=== PATIENT | male | born 1965 | race Hispanic/Latino ===

== ENCOUNTER 2016-09-18 11:06 | Emergency (ER) | payer MEDICAID ==
[2016-09-18 11:06] VITALS: BMI 22.3
[2016-09-18 11:10] VITALS: BP 144/85; PULSE 125; RESP 20; TEMP 99.3; O2SAT 97
--- NOTE | 2016-09-18 13:21 | ED PDOC ---
HPI: Abdomen Time Seen by Provider: 09/18/16 11:55 Chief Complaint (Nursing): GI Problem Chief Complaint (Provider): vomiting blood History Per: Patient Additional Complaint(s): 51-year-old male with history of alcohol abuse presents to emergency department with intermittent hematemesis 1 week. Patient also has abdominal distention and swelling in both legs. He denies chest pain, shortness of breath or dyspnea on exertion, denies fever or chills. Patient states he used to abuse alcohol but has not had a drink in several months. He denies abdominal pain but does feel uncomfortable secondary to distention. Past Medical History Reviewed: Historical Data, Nursing Documentation, Vital Signs Vital Signs: Last Vital Signs Temp 99.3 F 09/18/16 11:08 Pulse 125 H 09/18/16 11:08 Resp 20 09/18/16 11:08 BP 144/85 09/18/16 11:08 Pulse Ox 97 09/18/16 11:08 - Medical History PMH: Back Problems (herniated disc), Fractures (left hand 5th digit, left shoulder), Gastritis, HTN, Pancreatitis, Seizures - Surgical History Surgical History: Endoscopy - Family History Family History: States: No Known Family Hx - Living Arrangements Living Arrangements: Alone - Social History Current smoker - smoking cessation education provided: Yes Alcohol: Other (states he has not had a drink in several months but has history of abuse) Drugs: Denies - Home Medications Home Medications: Ambulatory Orders Medication Instructions Recorded Ferrous Sulfate [Feosol] 325 mg PO BID #60 tab 05/20/16 levETIRAcetam [Keppra] 500 mg PO BID #0 tab 05/20/16 Lactulose [Generlac] 10 gm PO TID #240 ml 06/26/16 Omeprazole 40 mg PO DAILY #30 capsule. 06/26/16 Pantoprazole Sodium [Protonix] 40 mg PO DAILY #30 tablet. 07/07/16 - Allergies Allergies/Adverse Reactions: Allergies Allergy/AdvReac Type Severity Reaction Status Date / Time aspirin Allergy NAUSEA Verified 09/18/16 11:09 Review of Systems ROS Statement: Except As Marked, All Systems Reviewed And Found Negative Constitutional: Negative for: Fever, Chills Cardiovascular: Negative for: Chest Pain, Palpitations Respiratory: Negative for: Cough Gastrointestinal: Positive for: Vomiting (blood), Abdominal Pain (distention) Musculoskeletal: Positive for: Other (edema in legs) Neurological: Negative for: Seizures, Headache, Dizziness Physical Exam - Reviewed Nursing Documentation Reviewed: Yes Vital Signs Reviewed: Yes - Physical Exam Appears: Positive for: Well, Non-toxic, No Acute Distress (etoh on breath) Skin: Negative for: Rash Eye Exam: Positive for: Normal appearance, EOMI, PERRL ENT: Positive for: Normal ENT Inspection Cardiovascular/Chest: Positive for: Regular Rate, Rhythm Respiratory: Positive for: Normal Breath Sounds Gastrointestinal/Abdominal: Positive for: Soft, Other (Mild diffuse abdominal tenderness with distention, no rebound or guarding) Back: Negative for: L CVA Tenderness, R CVA Tenderness Extremity: Positive for: Pedal Edema (Nonpitting edema noted to lower extremities bilaterally, no calf tenderness bilaterally, no cellulitis bilaterally) Neurologic/Psych: Positive for: Alert, Oriented, Gait (steady) - ECG O2 Sat by Pulse Oximetry: 97 Pulse Ox Interpretation: Normal Medical Decision Making Medical Decision Makin51 year old with history of alcohol abuse and hematemesis Plan: Labs IVF CT abd and pelvis CXR EKG IV protonix Treatment plan was discussed with the patient however he states he has to leave because he has an appointment with social security office. Patient is refusing all testing at this time. Patient prefers to return later on when he has more time. Patient was informed that he would need to sign out AGAINST MEDICAL ADVICE given presenting symptoms. Risks and dangers of signing out AGAINST MEDICAL ADVICE which include but are not limited to worsening of current condition and possible were discussed in detail with the patient. All questions were answered. Patient is competent and capable of making this decision at this time. AMA paperwork was reviewed in detail with patient and patient signed. He was instructed to return to ED as soon as possible or follow- up with primary doctor. Disposition - Clinical Impression Clinical Impression: Hematemesis, Left against medical advice - Patient ED Disposition Is Patient to be Admitted: No - Disposition Disposition: Against Medical Advice (patient signed AMA form but left ED before signing d/c paperwork, verbal instructions were given.) Disposition Time: 13:24 Condition: UNKNOWN Additional Instructions: You have declined tests in ED and are signing out against medical advice. Please return as soon as possible or follow up with primary care doctor. Instructions: Acute Nausea and Vomiting (ED), Against Medical Advice (ED)
== END 2016-09-18 12:30 | disposition left against medical advice (07) ==
LOC: H.ER 11:06
DX: K92.0 Hematemesis (principal)

== ENCOUNTER 2016-11-05 02:10 | Inpatient (IN) | payer MEDICAID ==
[2016-11-06 00:03] VITALS: BMI 23.0
[2016-11-06 00:43] LABS: BASO % 0.3 % (0.0-2.0); EOS # 0.2 K/uL (0.0-0.7); HEMATOCRIT 20.8 % (35.0-51.0); LYMPH % 25.4 % (20.0-40.0); MEAN CELL VOLUME 91.1 fl (80.0-94.0); MEAN CORPUSCULAR HEMOGLOBIN 30.9 pg (27.0-31.0); MEAN CORPUSCULAR HGB CONC 33.9 g/dL (33.0-37.0); MEAN PLATELET VOLUME 8.8 fl (7.2-11.7); MONO # 0.5 K/uL (0.0-0.8); MONO % 11.9 % (0.0-10.0); NEUT # 2.3 K/uL (1.8-7.0); NEUT % 57.4 % (50.0-75.0); NRBC % 0.1 % (0.0-0.0); RED CELL DISTRIBUTION WIDTH 19.9 % (11.5-14.5); WHITE BLOOD COUNT 4.1 K/uL (4.8-10.8)
[2016-11-06] MEDS: Sodium Chloride 0.9% 1,000 ML IV SCH ×3 (01:00→21:00)
[2016-11-06 07:33] LABS: MEAN CELL VOLUME 91.6 fl (80.0-94.0); MEAN CORPUSCULAR HEMOGLOBIN 31.5 pg (27.0-31.0); MEAN CORPUSCULAR HGB CONC 34.4 g/dL (33.0-37.0); RED CELL DISTRIBUTION WIDTH 19.8 % (11.5-14.5); WHITE BLOOD COUNT 3.6 K/uL (4.8-10.8)
--- NOTE | 2016-11-06 07:37 | CP.PCM.PN ---
<Zachery Munguia - Last Filed: 11/06/16 10:03> Subjective - Date & Time of Evaluation Date of Evaluation: 11/06/16 Time of Evaluation: 07:27 - Subjective Subjective: General Surgery Progress Notes for Dr. Dyer This 51M was seen and examined this AM at bedside. He reports no acute events overnight. He denies any increased pain, fevers, chills, chest pain, nausea, Objective - Vital Signs/Intake and Output Vital Signs (last 24 hours): Temp Pulse Resp BP Pulse Ox 98.6 F 84 19 101/64 94 L 11/06/16 00:00 11/06/16 00:00 11/06/16 00:00 11/06/16 00:00 11/06/16 00:00 - Medications Medications: Current Medications Acetaminophen (Tylenol 325mg Tab) 650 mg PO Q6 PRN PRN Reason: Fever >100.4 F Ferrous Sulfate (Feosol) 325 mg PO DAILY JANNIE Sodium Chloride (Sodium Chloride 0.9%) 1,000 mls @ 100 mls/hr IV .Q10H JANNIE Stop: 11/07/16 00:35 Last Admin: 11/06/16 01:00 Dose: 100 mls/hr Levetiracetam (Keppra) 500 mg PO BID JANNIE Lidocaine (Lidoderm) 1 ea TD DAILY JANNIE Morphine Sulfate (Morphine) 2 mg IVP Q4 PRN PRN Reason: Pain, moderate (4-7) Pantoprazole Sodium (Protonix Ec Tab) 40 mg PO DAILY JANNIE - Labs Labs: 11/06/16 00:42 - Constitutional Appears: Non-toxic, No Acute Distress - Head Exam Head Exam: ATRAUMATIC, NORMOCEPHALIC - Eye Exam Eye Exam: EOMI - ENT Exam ENT Exam: Mucous Membranes Moist - Respiratory Exam Respiratory Exam: NORMAL BREATHING PATTERN - Cardiovascular Exam Cardiovascular Exam: REGULAR RHYTHM - GI/Abdominal Exam GI & Abdominal Exam: Soft. absent: Firm, Guarding, Rigid, Tenderness - Extremities Exam Additional comments: Large left leg echymosis, no noticable interval change from yesterday Assessment and Plan - Assessment and Plan (Free Text) Assessment: This is a 51 year old male is is day 3 s/p mechanical fall. No surgical intervention at this time. It is unlikely that the hemoglobin is due to bleeding into the lower extremity. I recommend further workup for other sources of bleeding. D/W Dr. Manisha Munguia PGY-1 <Jones Dyer - Last Filed: 11/08/16 22:48> Objective - Vital Signs/Intake and Output Vital Signs (last 24 hours): Temp Pulse Resp BP Pulse Ox 99.1 F 92 H 20 121/67 98 11/07/16 08:34 11/07/16 08:34 11/07/16 08:34 11/07/16 08:34 11/07/16 08:34 - Labs Labs: 11/07/16 05:30 11/07/16 05:30 PT 22.0 SECONDS (9.6-11.2) H 11/06/16 06:40 INR 2.12 (0.92-1.08) H 11/06/16 06:40 APTT 41.2 SECONDS (23.3-32.5) H 11/05/16 08:39 Attending/Attestation - Attestation I have personally seen and examined this patient.: Yes I have fully participated in the care of the patient.: Yes I have reviewed all pertinent clinical information, including history, physical exam and plan: Yes Notes (Text): 11/08/16 22:47 Pt was seen and examined at bedside on 11/06/16 Agree with above note and assessment Pt with fall and Left gluteal and Groin hematoma No signs of active bleeding Plan d.w pt in detail No surgical intervention required at present f.U PRN
[2016-11-06 07:46] LABS: BLOOD UREA NITROGEN 15 mg/dl (9-20); CALCIUM 7.1 mg/dL (8.4-10.2); CARBON DIOXIDE 22 mmol/L (22-30); CHLORIDE 103 mmol/L (98-107); GFR AFRICAN-AMERICAN > 60; GLUCOSE,RANDOM 96 mg/dL (75-110); POTASSIUM 3.4 MMOL/L (3.6-5.0); SODIUM 134 mmol/l (132-148)
[2016-11-06 07:56] LABS: HEMATOCRIT 20.1 % (35.0-51.0)
--- NOTE | 2016-11-06 09:01 | RAD ---
Three-views, left shoulder Indication: Pain, fall Comparison: None available Findings: Calcific tendinitis. Osseous demineralization limits evaluation for acute fracture lines. Degenerative changes. Acromioclavicular arthropathy. No acute displaced fracture or dislocation evident. Glenohumeral joint and acromioclavicular joint appear unremarkable. The distal clavicle and underlying ribs appear intact. No evidence of radiopaque foreign body. Soft appear unremarkable. Impression: No acute displaced fracture or dislocation evident. If symptoms persist or if there is continued clinical concern, x-ray follow-up in 7-10 days should be considered. Calcific tendinitis.
[2016-11-06 09:19] LABS: BASO % 0.7 % (0.0-2.0); EOS # 0.2 K/uL (0.0-0.7); EOS % 3.9 % (0.0-4.0); HEMATOCRIT 22.2 % (35.0-51.0); LYMPH # 0.9 K/uL (1.0-4.3); LYMPH % 21.2 % (20.0-40.0); MEAN CELL VOLUME 91.4 fl (80.0-94.0); MEAN CORPUSCULAR HEMOGLOBIN 31.2 pg (27.0-31.0); MEAN CORPUSCULAR HGB CONC 34.1 g/dL (33.0-37.0); MEAN PLATELET VOLUME 11.3 fl (7.2-11.7); MONO # 0.6 K/uL (0.0-0.8); MONO % 12.3 % (0.0-10.0); NEUT # 2.8 K/uL (1.8-7.0); NEUT % 61.9 % (50.0-75.0); NRBC % 0.3 % (0.0-0.0); RED CELL DISTRIBUTION WIDTH 20.8 % (11.5-14.5); WHITE BLOOD COUNT 4.5 K/uL (4.8-10.8)
[2016-11-06] MEDS: Lidocaine 5% Patch TD SCH (09:27)
[2016-11-06] MEDS: Pantoprazole 40 mg EC Tab PO SCH (09:27)
[2016-11-06 09:40] LABS: PARTIAL THROMBOPLASTIN TIME 41.2 SECONDS (23.3-32.5)
--- NOTE | 2016-11-06 10:37 | CT ---
PROCEDURE: CT pelvis, left hip and femur. HISTORY: Status post fall with extensive ecchymosis. COMPARISON: Not available TECHNIQUE: 2.5 mm contiguous axial sections were acquired through the pelvis and left hip. A 2nd series is 2.5 mm axial sections were acquired through the left femur. Sagittal and coronal images of both series were created. FINDINGS: There is no fracture identified. The left hip is unremarkable. There is no lytic or blastic osseous lesion. There is small hematoma seen posterolateral to the left iliac crest, measuring approximately 3.3 x 2.6 by 2.8 cm. This is continuous with a small amount of hemorrhage extending distally in the left lateral gluteal subcutaneous soft tissues. There is extensive subcutaneous edema/ ecchymosis extending to the level just beneath the hip. Subcutaneous edema is seen more distally in the lateral subcutaneous soft tissues of the proximal femur. Examination of the pelvic contents demonstrates no abnormal bowel loops. The urinary bladder is unremarkable. The prostate is normal in appearance. There is no ascites. IMPRESSION: No fracture of pelvis/left hip/ left femur. Extensive subcutaneous ecchymosis. Padilla small hematoma in subcutaneous fat at the level of these left iliac crest.
[2016-11-06 11:14] LABS: BLOOD UREA NITROGEN 21 mg/dl (9-20); CALCIUM 7.5 mg/dL (8.4-10.2); CARBON DIOXIDE 20 mmol/L (22-30); CHLORIDE 103 mmol/L (98-107); GFR AFRICAN-AMERICAN > 60; GLUCOSE,RANDOM 93 mg/dL (75-110); POTASSIUM 3.7 MMOL/L (3.6-5.0); SODIUM 134 mmol/l (132-148)
--- NOTE | 2016-11-06 15:19 | CP.PCM.PN ---
<Kian Elliott - Last Filed: 11/06/16 16:02> Subjective - Date & Time of Evaluation Date of Evaluation: 11/06/16 Time of Evaluation: 09:45 - Subjective Subjective: Patient seen and evaluated during rounds today. He is stable, tolerating PO diet , denies CP, palpitations, SOB, headache or dizziness. Patient still c/o L/ shoulder and L/thigh pain over the ecchymotic lesions. VS reviewed adn stable. Patient's Hgb today, reviewed and 1 unit of PRBC was ordered to correct Hgb/Hct levels. Objective - Vital Signs/Intake and Output Vital Signs (last 24 hours): Temp Pulse Resp BP Pulse Ox 99.3 F 90 20 104/58 L 98 11/06/16 15:00 11/06/16 15:00 11/06/16 15:00 11/06/16 15:00 11/06/16 15:00 - Medications Medications: Current Medications Acetaminophen (Tylenol 325mg Tab) 650 mg PO Q6 PRN PRN Reason: Fever >100.4 F Ferrous Sulfate (Feosol) 325 mg PO DAILY [facility]END[facility] S[facility] TO [facility] Last Admin: 11/06/16 09:26 Dose: 325 mg Sodium Chloride (Sodium Chloride 0.9%) 1,000 mls @ 100 mls/hr IV .Q10H [facility]END[facility] TO [facility] Stop: 11/07/16 00:35 Last Admin: 11/06/16 12:48 Dose: 100 mls/hr Levetiracetam (Keppra) 500 mg PO BID [facility] Last Admin: 11/06/16 09:27 Dose: 500 mg Lidocaine (Lidoderm) 1 ea TD DAILY [facility] Last Admin: 11/06/16 09:27 Dose: 1 ea Morphine Sulfate (Morphine) 2 mg IVP Q4 PRN PRN Reason: Pain, moderate (4-7) Pantoprazole Sodium (Protonix Ec Tab) 40 mg PO DAILY [facility] Last Admin: 11/06/16 09:27 Dose: 40 mg - Labs Labs: 11/06/16 06:40 11/06/16 06:40 PT 22.0 SECONDS (9.6-11.2) H 11/06/16 06:40 INR 2.12 (0.92-1.08) H 11/06/16 06:40 APTT 41.2 SECONDS (23.3-32.5) H 11/05/16 08:39 - Constitutional Appears: Non-toxic, No Acute Distress - Eye Exam Eye Exam: PERRL - ENT Exam ENT Exam: Mucous Membranes Moist - Respiratory Exam Respiratory Exam: Clear to Ausculation Bilateral, NORMAL BREATHING PATTERN. absent: Rales, Wheezes - Cardiovascular Exam Cardiovascular Exam: REGULAR RHYTHM, +S1, +S2. absent: Gallop - GI/Abdominal Exam GI & Abdominal Exam: Soft, Normal Bowel Sounds. absent: Tenderness - Extremities Exam Extremities Exam: Normal Capillary Refill, Tenderness (L/upper thigh. Ecchymosis ) - Neurological Exam Neurological Exam: Alert, Awake, Oriented x3 - Psychiatric Exam Psychiatric exam: Normal Affect, Normal Mood - Skin Skin Exam: Warm Assessment and Plan - Assessment and Plan (Free Text) Assessment: 51 y/o M with Hx of liver cirrhosis admitted s/p fall 2 weeks ago and anemia 1-Acute on chronic anemia Last Hgb 6.9 Am today S/P 1 unit PRBC F/U CBC for tomorrow AM VS stable Will monitor F/U FOBT 2-Liver cirrhosis Non-complaint with f/u elevated INR/PT Amonia 77 F/U CMP tomorrow am 3-S/P fall w/multiple ecchymotic lesions Evaluated by Sx: No interventions at this time CT LE: Small hematoma L/iliac crest area, No Fx: please see full report L/shoulder Xray: No Fx: please see full report On Tylenol, Morphine for pain control 4-Hx of Seizure disorder Cont Keppra current dose <Jennifer Ray - Last Filed: 11/07/16 08:49> Objective - Vital Signs/Intake and Output Vital Signs (last 24 hours): Temp Pulse Resp BP Pulse Ox 99.1 F 92 H 20 121/67 98 11/07/16 08:34 11/07/16 08:34 11/07/16 08:34 11/07/16 08:34 11/07/16 08:34 - Medications Medications: Current Medications Acetaminophen (Tylenol 325mg Tab) 650 mg PO Q6 PRN PRN Reason: Pain, moderate (4-7) Last Admin: 11/06/16 15:59 Dose: 650 mg Ferrous Sulfate (Feosol) 325 mg PO DAILY JANNIE Last Admin: 11/06/16 09:26 Dose: 325 mg Levetiracetam (Keppra) 500 mg PO BID PENDING SALE TO [facility] Last Admin: 11/06/16 16:02 Dose: 500 mg Lidocaine (Lidoderm) 1 ea TD DAILY PENDING SALE TO [facility] Last Admin: 11/06/16 09:27 Dose: 1 ea Morphine Sulfate (Morphine) 2 mg IVP Q4 PRN PRN Reason: Pain, severe (8-10) Pantoprazole Sodium (Protonix Ec Tab) 40 mg PO DAILY PEND[facility] Last Admin: 11/06/16 09:27 Dose: 40 mg - Labs Labs: 11/07/16 05:30 11/07/16 05:30 PT 22.0 SECONDS (9.6-11.2) H 11/06/16 06:40 INR 2.12 (0.92-1.08) H 11/06/16 06:40 APTT 41.2 SECONDS (23.3-32.5) H 11/05/16 08:39 Assessment and Plan - Assessment and Plan (Free Text) Assessment: ATTENDING STATEMENT/ ATTESTATION Patient seen and examined. Case discussed with resident. Agree with plan to transfuse one unit or PRBC's today. Repeat CBC in AM 11/07/16 and discharge if stable.
[2016-11-06] MEDS ORDERED: Potassium Chloride 20 mEq ER Tab PO ONE (16:16)
[2016-11-07 01:09] VITALS: RESP 20
[2016-11-07 08:12] LABS: HEMATOCRIT 24.3 % (35.0-51.0); MEAN CELL VOLUME 92.7 fl (80.0-94.0); MEAN CORPUSCULAR HEMOGLOBIN 32.1 pg (27.0-31.0); MEAN CORPUSCULAR HGB CONC 34.6 g/dL (33.0-37.0); RED CELL DISTRIBUTION WIDTH 19.1 % (11.5-14.5); WHITE BLOOD COUNT 4.5 K/uL (4.8-10.8)
[2016-11-07 08:34] VITALS: BP 121/67; PULSE 92; TEMP 99.1; O2SAT 98
[2016-11-07 08:41] LABS: ALB/GLOB RATIO 0.6 (1.0-2.1); ALKALINE PHOSPHATASE 98 U/L (38-126); ALT/SGPT 41 U/L (21-72); AST/SGOT 92 U/L (17-59); BILIRUBIN,TOTAL 7.3 mg/dl (0.2-1.3); BLOOD UREA NITROGEN 8 mg/dl (9-20); CALCIUM 7.3 mg/dL (8.4-10.2); CARBON DIOXIDE 21 mmol/L (22-30); CHLORIDE 106 mmol/L (98-107); GFR AFRICAN-AMERICAN > 60; GLUCOSE,RANDOM 118 mg/dL (75-110); POTASSIUM 3.7 MMOL/L (3.6-5.0); SODIUM 134 mmol/l (132-148); TOTAL PROTEIN 6.9 G/DL (6.3-8.2)
[2016-11-07] MEDS: Pantoprazole 40 mg EC Tab PO SCH (09:57)
[2016-11-07] MEDS: Lidocaine 5% Patch TD SCH (09:57)
--- NOTE | 2016-11-07 13:10 | CP.PCM.DIS ---
Provider - Provider Date of Admission: 11/05/16 14:05 Attending physician: Chanelle Rowe MD Primary care physician: Cesar Guaman MD Time Spent in preparation of Discharge (in minutes): 25 Diagnosis - Discharge Diagnosis (1) Anemia Status: Acute Comment: s/p 1 units of PRBC. hgb: 8.4. c/w iron at home. F/U w/ PMD. ER precautions. (2) Hematoma of left hip Status: Acute Comment: 2/2 fall at home. stable. no surgical intervention at this time. (3) Liver cirrhosis, alcoholic Status: Chronic Priority: High Comment: encouraged pt to F/U with GI. encouraged pt to F/U at [facility] for possible LIver transplant. referral was given to pt in prior admission Hospital Course - Lab Results Lab Results: Most Recent Lab Values WBC 4.5 K/uL (4.8-10.8) L 11/07/16 05:30 RBC 2.62 Mil/uL (4.40-5.90) L 11/07/16 05:30 Hgb 8.4 g/dL (12.0-18.0) L 11/07/16 05:30 Hct 24.3 % (35.0-51.0) L 11/07/16 05:30 MCV 92.7 fl (80.0-94.0) 11/07/16 05:30 MCH 32.1 pg (27.0-31.0) H 11/07/16 05:30 MCHC 34.6 g/dL (33.0-37.0) 11/07/16 05:30 RDW 19.1 % (11.5-14.5) H 11/07/16 05:30 Plt Count 51 K/uL (130-400) L 11/07/16 05:30 MPV 8.8 fl (7.2-11.7) 11/06/16 00:42 Neut % (Auto) 57.4 % (50.0-75.0) 11/06/16 00:42 Lymph % (Auto) 25.4 % (20.0-40.0) 11/06/16 00:42 Hayes % (Auto) 11.9 % (0.0-10.0) H 11/06/16 00:42 Eos % (Auto) 5.0 % (0.0-4.0) H 11/06/16 00:42 Baso % (Auto) 0.3 % (0.0-2.0) 11/06/16 00:42 Neut # 2.3 K/uL (1.8-7.0) 11/06/16 00:42 Lymph # 1.0 K/uL (1.0-4.3) 11/06/16 00:42 Hayes # 0.5 K/uL (0.0-0.8) 11/06/16 00:42 Eos # 0.2 K/uL (0.0-0.7) 11/06/16 00:42 Baso # 0.0 K/uL (0.0-0.2) 11/06/16 00:42 PT 22.0 SECONDS (9.6-11.2) H 11/06/16 06:40 INR 2.12 (0.92-1.08) H 11/06/16 06:40 APTT 41.2 SECONDS (23.3-32.5) H 11/05/16 08:39 Sodium 134 mmol/l (132-148) 11/07/16 05:30 Potassium 3.7 MMOL/L (3.6-5.0) 11/07/16 05:30 Chloride 106 mmol/L (98-107) 11/07/16 05:30 Carbon Dioxide 21 mmol/L (22-30) L 11/07/16 05:30 Anion Gap 11 (10-20) 11/07/16 05:30 BUN 8 mg/dl (9-20) L 11/07/16 05:30 Creatinine 0.6 mg/dL (0.8-1.5) L 11/07/16 05:30 Est GFR ( Amer) > 60 11/07/16 05:30 Est GFR (Non-Af Amer) > 60 11/07/16 05:30 Random Glucose 118 mg/dL (75-110) H 11/07/16 05:30 Calcium 7.3 mg/dL (8.4-10.2) L 11/07/16 05:30 Total Bilirubin 7.3 mg/dl (0.2-1.3) H 11/07/16 05:30 AST 92 U/L (17-59) H 11/07/16 05:30 ALT 41 U/L (21-72) 11/07/16 05:30 Alkaline Phosphatase 98 U/L (38-126) 11/07/16 05:30 Ammonia 77 umo/L (16-60) H 11/06/16 06:40 Total Protein 6.9 G/DL (6.3-8.2) 11/07/16 05:30 Albumin 2.5 g/dL (3.5-5.0) L 11/07/16 05:30 Globulin 4.4 gm/dL (2.2-3.9) H 11/07/16 05:30 Albumin/Globulin Ratio 0.6 (1.0-2.1) L 11/07/16 05:30 Blood Type O POSITIVE 11/06/16 00:12 Antibody Screen Negative 11/06/16 00:12 Crossmatch See Detail 11/06/16 00:12 BBK History Checked Patient has bt 11/06/16 00:12 - Hospital Course Hospital Course: 51 y/o M with Hx of liver cirrhosis admitted s/p fall 2 weeks ago admitted w/ left hip hematoma and anemia. Pt received 1 unit of PRBC, hb.4 after transfusion. feeling better, evaluated by surgery for the hematoma, no surgical intervention needed. will d/c pt home w/ F/U by PMD within 1 week. Discharge Exam - Additional Findings Additional findings: - Constitutional Appears: Non-toxic, No Acute Distress - Eye Exam Eye Exam: PERRL - ENT Exam ENT Exam: Mucous Membranes Moist - Respiratory Exam Respiratory Exam: Clear to Ausculation Bilateral, NORMAL BREATHING PATTERN. absent: Rales, Wheezes - Cardiovascular Exam Cardiovascular Exam: REGULAR RHYTHM, +S1, +S2. absent: Gallop - GI/Abdominal Exam GI & Abdominal Exam: Soft, Normal Bowel Sounds. absent: Tenderness - Extremities Exam Extremities Exam: Normal Capillary Refill, Tenderness (L/upper thigh. hematoma, soft, stable in size from admission.) - Neurological Exam Neurological Exam: Alert, Awake, Oriented x3 - Psychiatric Exam Psychiatric exam: Normal Affect, Normal Mood - Skin Skin Exam: Warm Discharge Plan - Follow Up Plan Condition: GOOD Disposition: HOME/ ROUTINE Instructions: Anemia (DC) Additional Instructions: F/U with PMD at [facility] (dr. Moreno) within 1 week. CBC order for Wednesday11/11/16 given to pt. ER precautions given to pt who verbalized understanding. Referrals: Cesar Guaman MD [Primary Care Provider] -
--- NOTE | 2016-11-09 16:41 | CP.PCM.PCO ---
Assessment/Plan - Assessment and Plan (Free Text) Assessment: Permission given for me to speak to his sister. Pt would like his sister to be his primary decision maker. Spoke with Missy Worthington [phone] - P t gave me the number She is aware of pt's liver disease When I told Merly that pt had told me he is no longer drinking, she replied " I wouldn't make any bets" I saw and evaluated the patient. I discussed the case with the resident and agree with the findings and plan as documented in the resident's note. Please refer to discharge summary
== END 2016-11-07 14:13 | disposition home or self-care (01) | DRG 812 ==
LOC: H.EDERROR 02:10 → H.MEDSURG1 14:05 → UNDOADMIN 16:08 → H.MEDSURG1 11-06 00:54
PROVIDERS: ADMIT Family Medicine Geriatric Medicine; ATTEND Family Medicine Geriatric Medicine
PROC: 30233N1 Transfusion of Nonautologous Red Blood Cells into Peripheral Vein, Percutaneous Approach (ICD-10-PCS; principal; 2016-11-05)
DX: D64.89 Other specified anemias (principal); K74.60 Unspecified cirrhosis of liver; S30.1XXA Contusion of abdominal wall, initial encounter; G40.909 Epilepsy, unspecified, not intractable, without status epilepticus; W18.30XA Fall on same level, unspecified, initial encounter; Z91.19 Patient's noncompliance with other medical treatment and regimen; Z91.81 History of falling; Y92.9 Unspecified place or not applicable

== ENCOUNTER 2016-11-07 15:03 | Inpatient (IN) | payer MEDICAID ==
[2016-11-07 15:04] VITALS: BMI 23.0
--- NOTE | 2016-11-07 17:19 | RAD ---
HISTORY: SOB COMPARISON: Chest x-ray performed 10/16/16 TECHNIQUE: Chest, one view. FINDINGS: LUNGS: Mild left basilar atelectasis. Please note that chest x-ray has limited sensitivity for the detection of pulmonary masses. PLEURA: Question small pleural effusion at the right costophrenic angle. Suspect artifactual lucency at the right lung base rather than tiny pneumothorax. CARDIOVASCULAR: Heart size appears top normal. OSSEOUS STRUCTURES: No acute osseous abnormality identified. VISUALIZED UPPER ABDOMEN: Unremarkable. OTHER FINDINGS: None. IMPRESSION: Question small pleural effusion at the right costophrenic angle. Suspect artifactual lucency at the right lung base rather than tiny pneumothorax. Repeat chest PA and lateral x-ray for further evaluation. Mild left basilar atelectasis. Findings discussed with STEPHAN Engel on 11/07/16 at 5:14 p.m.
[2016-11-07 17:21] LABS: BASO % 0.3 % (0.0-2.0); EOS # 0.2 K/uL (0.0-0.7); EOS % 3.6 % (0.0-4.0); HEMATOCRIT 24.2 % (35.0-51.0); LYMPH # 0.8 K/uL (1.0-4.3); MEAN CELL VOLUME 94.6 fl (80.0-94.0); MEAN CORPUSCULAR HEMOGLOBIN 32.7 pg (27.0-31.0); MEAN CORPUSCULAR HGB CONC 34.5 g/dL (33.0-37.0); MEAN PLATELET VOLUME 8.9 fl (7.2-11.7); MONO # 0.9 K/uL (0.0-0.8); MONO % 17.3 % (0.0-10.0); NEUT # 3.1 K/uL (1.8-7.0); NEUT % 62.8 % (50.0-75.0); RED CELL DISTRIBUTION WIDTH 19.5 % (11.5-14.5); WHITE BLOOD COUNT 4.9 K/uL (4.8-10.8)
[2016-11-07 17:35] LABS: ALB/GLOB RATIO 0.6 (1.0-2.1); ALKALINE PHOSPHATASE 137 U/L (38-126); ALT/SGPT 47 U/L (21-72); AST/SGOT 101 U/L (17-59); BILIRUBIN,TOTAL 7.2 mg/dl (0.2-1.3); BLOOD UREA NITROGEN 7 mg/dl (9-20); CALCIUM 7.8 mg/dL (8.4-10.2); CARBON DIOXIDE 19 mmol/L (22-30); CHLORIDE 106 mmol/L (98-107); GFR AFRICAN-AMERICAN > 60; GLUCOSE,RANDOM 101 mg/dL (75-110); POTASSIUM 4.5 MMOL/L (3.6-5.0); SODIUM 133 mmol/l (132-148); TOTAL PROTEIN 7.7 G/DL (6.3-8.2)
[2016-11-07 17:49] LABS: PARTIAL THROMBOPLASTIN TIME 37.1 SECONDS (23.3-32.5)
--- NOTE | 2016-11-07 17:54 | RAD ---
HISTORY: SOB, r/o pneumothorax COMPARISON: Chest x-ray performed 11/07/16 TECHNIQUE: Chest PA and lateral FINDINGS: LUNGS: Small right pleural effusion and or atelectasis/infiltrate. No definite pneumothorax. Please note that chest x-ray has limited sensitivity for the detection of pulmonary masses. CARDIOVASCULAR: The cardiomediastinal silhouette appears within normal limits of size. OSSEOUS STRUCTURES: No acute osseous abnormality identified. VISUALIZED UPPER ABDOMEN: Unremarkable. OTHER FINDINGS: None. IMPRESSION: Small right pleural effusion and/or atelectasis/infiltrate.
--- NOTE | 2016-11-07 17:54 | ED PDOC ---
Lower Extremity Pain/Injury Time Seen by Provider: 11/07/16 15:30 Chief Complaint (Nursing): Lower Extremity Problem/Injury Chief Complaint (Provider): Lower extrmity Problem/Injury History Per: Patient History/Exam Limitations: no limitations Onset/Duration Of Symptoms: Days Current Symptoms Are (Timing): Still Present Additional Complaint(s): Shreyas Sepulveda is a 51 year old male with no past medical history, is a smoker, who presents to the ED for evaluation for L hip pain, states that he had a recent admission 3 days ago for and was d/c 2 hours prior to my evaluation. He adds that he sustained L hip injury due to falling at home 5 days ago. Patient admits to falling on the left hip and coming to the ER for evaluation and was admitted. He states that the L hip pain has been unchanged and is steady since the injury. States today after he was d/c he was walking home and noticed that walking makes the L hip pain worse. He also reports feeling SOB when we was walking today, he states that he walked a total of 6 blocks and that the SOB is new, he never experienced in before when he walks a long distance. Denies any associated symptoms of chest pain, diaphoresis , calf pain, and swelling. Patient states during his recent admission to [facility], he received CT of hip which showed no fx, XR L shoulder showed no fx. PCP is Dr. Rodriguez - Hip Description Of Injury: Fell (at home) - Risk Factors DVT Risk Factors: Pos: Decreased Mobility, Decreased Activity, Hospitalization Past Medical History Reviewed: Historical Data, Nursing Documentation, Vital Signs Vital Signs: Last Vital Signs Temp 98.3 F 11/07/16 15:22 Pulse 104 H 11/07/16 15:22 Resp 20 11/07/16 15:22 BP 112/57 L 11/07/16 15:22 Pulse Ox 97 11/07/16 15:22 - Medical History PMH: Anemia, Back Problems (herniated disc), Fractures (L hand 5th digit, L shoulder), Gastritis, HTN (patient denies), Pancreatitis (patient denies), Seizures Denies: Parkinson's Disease, Chronic Kidney Disease - Surgical History Surgical History: Endoscopy - Family History Family History: States: No Known Family Hx - Home Medications Home Medications: Ambulatory Orders Medication Instructions Recorded Ferrous Sulfate [Feosol] 325 mg PO BID 10/16/16 Omeprazole Magnesium [Prilosec Otc] 20 mg PO BID 10/16/16 levETIRAcetam [Keppra] 500 mg PO BID 10/16/16 Folic Acid/Mv,Iron,Min [One Daily 1 each PO DAILY #30 tablet 10/22/16 Complete Tablet] Thiamine [Vitamin B1 Tab] 100 mg PO DAILY #30 tab 10/22/16 - Allergies Allergies/Adverse Reactions: Allergies Allergy/AdvReac Type Severity Reaction Status Date / Time aspirin Allergy NAUSEA Verified 11/07/16 15:22 Review of Systems ROS Statement: Except As Marked, All Systems Reviewed And Found Negative Constitutional: Positive for: Other (Diaphoresis) Cardiovascular: Positive for: Chest Pain. Negative for: Edema Respiratory: Positive for: Shortness of Breath Musculoskeletal: Positive for: Other (Calf pain) Skin: Positive for: Bruising (on hip) Physical Exam - Reviewed Nursing Documentation Reviewed: Yes Vital Signs Reviewed: Yes - Physical Exam Appears: Positive for: Well, Non-toxic, No Acute Distress Head Exam: Positive for: ATRAUMATIC, NORMAL INSPECTION, NORMOCEPHALIC Skin: Positive for: Normal Color, Warm, Dry Eye Exam: Positive for: Normal appearance, EOMI, PERRL ENT: Positive for: Normal ENT Inspection Neck: Positive for: Normal, Painless ROM, Supple Cardiovascular/Chest: Positive for: Regular Rate, Rhythm. Negative for: Chest Non Tender, Edema, JVD, Murmur, Tachycardia Respiratory: Positive for: Normal Breath Sounds. Negative for: Decreased Breath Sounds, Accessory Muscle Use, Crackles, Rales, Rhonchi, Stridor, Wheezing , Respiratory Distress Gastrointestinal/Abdominal: Positive for: Normal Exam, Bowel Sounds (normal), Soft. Negative for: Tenderness, Mass, Distended, Guarding, Rebound Back: Positive for: Normal Inspection Rectal: Positive for: Deferred Extremity: Positive for: Normal ROM, Other (Echymosis in left groin area extending to the left hip & proximal anterior and lateral left thigh). 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 Negative for: Motor/Sensory Deficits - Laboratory Results Result Diagrams: 11/07/16 17:00 11/07/16 17:00 - ECG O2 Sat by Pulse Oximetry: 97 (RA) Pulse Ox Interpretation: Normal Medical Decision Making Medical Decision Makin: Initial Impression: SOB, r/o PE, consider ACS, L hip pain/ecchymosis from recent fall, fx ruled out Initial Plan: * EKG * B-Type Natriuretic time * CMP * Troponin * CBC * D Dimer * Partial Thromboplastin Time * Prothrombin Time * Chest one view * Chest two views * Acetaminophen 975mg * compliance monitor cont * IV insertion * Re-Eval Recent admission reviewed, patient was admitted for anemia, during admission he received 1 unit PRBCs. XR L shoulder showed no fracture. No acute fracture as per CT of left hip and pelvis, +extensive subcutaneous ecchymosis, ney small hematoma in subcutaneous fat at the level of these L iliac crest. Surgery was consulted, suggested no surgical intervention. Recent admission showed hgb 7.6- 8.4, plt 40-50 T bili 7.3 Co2 20-21. Previous ER admissions reviewed, no h/o documented stress test, just prior EKG. EKG: NSR at 85 bpm, (-) acute ST changes. CXR: +small R pleral effusion and/or atelectasis/infiltrate Labs reviewed, noted the following findings : hgb 8.3/hct24.2 plt 58 co219 trop (-), proBNP (-), ddimer (+). CTA chest to r/o PE ordered. Case endorsed to STEPHAN Combs at 1999, pending CTA chest to r/o PE, pertinent history, exam and diagnostic results discussed in detail. Scribe Attestation: Documented by Cash Fabian acting as a scribe for Margie Engel PA-C. Provider Scribe Attestation: All medical record entries made by the Scribe were at my direction and personally dictated by me. I have reviewed the chart and agree that the record accurately reflects my personal performance of the history, physical exam, medical decision making, and the department course for this patient. I have also personally directed, reviewed, and agree with the discharge instructions and disposition. Disposition - Clinical Impression Clinical Impression: Hip pain, SOB (shortness of breath) - Disposition Disposition Time: 20:00 (Case endorsed to STEPHAN Combs) Condition: FAIR - PA / CASTING MOLDER / Resident Statement / has reviewed & agrees with the documentation as recorded.
[2016-11-07] MEDS ORDERED: Iodixanol 320 MG/ML 100 ML BOTTLE IV ONE (19:56)
[2016-11-07] MEDS ORDERED: Sodium Chloride 0.9% 100 ML ONE (19:58)
--- NOTE | 2016-11-07 20:51 | ED PDOC ---
- Laboratory Results Result Diagrams: 11/07/16 17:00 11/07/16 17:00 - ECG O2 Sat by Pulse Oximetry: 97 (RA) Pulse Ox Interpretation: Normal Medical Decision Making Medical Decision Making: Case was signed out to publications writer from STEPHAN Piña pending CT chest. Duplex bilateral legs also ordered by publications writer. CT chest: IMPRESSION: Limited by patient motion, no aortic aneurysm or dissection, no central or large peripheral pulmonary embolus; small right pleural effusion with basilar airspace disease; no acute displaced rib fractures ; TIPS catheter; splenomegaly An acute nondisplaced rib fracture may be radiographically occult Additional findings as described above. Duplex bilateral legs: no DVT Call [facility] resident[facility] Dr Carvalho to admit patient. Disposition - Clinical Impression Clinical Impression: Hip pain, SOB (shortness of breath) - POA Present On Arrival: None - Disposition Disposition: Hospitalized as Observation Patient Disposition Time: 02:10 Condition: FAIR Results - Lab Results Lab Results: 11/07/16 11/07/16 11/07/16 18:20 17:00 17:00 WBC 4.9 RBC 2.55 L Hgb 8.3 L Hct 24.2 L MCV 94.6 H MCH 32.7 H MCHC 34.5 RDW 19.5 H Plt Count 58 L MPV 8.9 Neut % (Auto) 62.8 Lymph % (Auto) 16.0 L Shannon % (Auto) 17.3 H Eos % (Auto) 3.6 Baso % (Auto) 0.3 Neut # 3.1 Lymph # 0.8 L Shannon # 0.9 H Eos # 0.2 Baso # 0.0 PT 20.1 H INR 1.93 H APTT 37.1 H D-Dimer, Quantitative 10.46 H Cancelled Sodium Potassium Chloride Carbon Dioxide Anion Gap BUN Creatinine Est GFR ( Amer) Est GFR (Non-Af Amer) Random Glucose Calcium Total Bilirubin AST ALT Alkaline Phosphatase Troponin I NT-Pro-B Natriuret Pep Total Protein Albumin Globulin Albumin/Globulin Ratio 11/07/16 11/07/16 17:00 12:00 WBC RBC Hgb Hct MCV MCH MCHC RDW Plt Count MPV Neut % (Auto) Lymph % (Auto) Shannon % (Auto) Eos % (Auto) Baso % (Auto) Neut # Lymph # Shannon # Eos # Baso # PT INR APTT D-Dimer, Quantitative Sodium 133 Potassium 4.5 Chloride 106 Carbon Dioxide 19 L Anion Gap 13 BUN 7 L Creatinine 0.6 L Est GFR ( Amer) > 60 Est GFR (Non-Af Amer) > 60 Random Glucose 101 Calcium 7.8 L Total Bilirubin 7.2 H AST 101 H ALT 47 Alkaline Phosphatase 137 H D Troponin I < 0.0120 < 0.0120 NT-Pro-B Natriuret Pep 377 Total Protein 7.7 Albumin 2.9 L Globulin 4.8 H Albumin/Globulin Ratio 0.6 L
--- NOTE | 2016-11-07 20:56 | CT ---
EXAM: CT Angiography Chest With Intravenous Contrast CLINICAL HISTORY: 51 years old, male; Pain; Other: Sob/ b/l lower ext pain/ swelling; Prior surgery; Surgery date: 6+ months; Surgery type: Liver stent 2yrs ago bleeding/etoh; Patient HX: HX of falling few days ago; Additional info: SOB, R/O pe, elevated ddimer TECHNIQUE: Axial computed tomographic angiography images of the chest with intravenous contrast using pulmonary embolism protocol. This CT exam was performed using one or more of the following dose reduction techniques: automated exposure control, adjustment of the mA and/or kV according to patient size, and/or use of iterative reconstruction technique. MIP reconstructed images were created and reviewed. Coronal and sagittal reformatted images were created and reviewed. CONTRAST: 98 mL of VISIPAQUE administered intravenously. EXAM DATE/TIME: 11/07/2016 7:32 PM COMPARISON: CT - CHEST,ABD,PEL W/IV CONT ONLY 10/16/2016 12:13:59 PM FINDINGS: Artifacts: Motion artifact degrades image quality. Heart, aorta and Pulmonary arteries: Heart size is normal. There is no pericardial effusion.There are vascular calcifications.There is no aneurysm or dissection. There are no central pulmonary emboli. Motion limits evaluation of peripheral vessels. There are no large peripheral pulmonary emboli. Lungs and pleural spaces: Trachea and main bronchi are patent. There multiple small blebs at the lung apices right greater than left. There is mild prominence of interstitial markings. There are groundglass opacities in the right upper lobe. There is dependent atelectasis in the right upper and lower lobes. There is a small right pleural effusion. There is atelectasis and airspace disease at the right base. There is dependent atelectasis at the left base. There is no lobar or segmental consolidation. Mediastinum: There is a small hiatal hernia. Esophagus is unremarkable. There is shotty mediastinal nodes. There are no enlarged hilar nodes. Thyroid: Thyroid is not optimally demonstrated. Bones/joints: There are no acute displaced rib fractures.There are degenerative changes in the osseus structures. Soft tissues: unremarkable Lymph nodes: See above. Upper abdomen: There is a TIPS catheter in the liver.The spleen is enlarged. IMPRESSION: Limited by patient motion, no aortic aneurysm or dissection, no central or large peripheral pulmonary embolus; small right pleural effusion with basilar airspace disease; no acute displaced rib fractures; TIPS catheter; splenomegaly An acute nondisplaced rib fracture may be radiographically occult Additional findings as described above.
--- NOTE | 2016-11-07 23:43 | CP.PCM.HP ---
<George Carvalho - Last Filed: 11/08/16 06:33> History of Present Illness - History of Present Illness History of Present Illness: CC/HPI: 51 y/o male with a PMHx of ETOH abuse and epilepsy earlier discharged from [facility] after 1 unit PRBC for anemia arrives to E.R. by walking complaining of dyspnea. Pt. reports he felt short of breath after walking to his sister's (approximatley 14 blocks as per pt.) house in [place] but decided to walk back to the E.R. because this shortness of breath has never happened to him before. Pt. does admit to smoking 2 to 3 cigarettes per day but denies any cough or chest pain. On ROS, Pt. also denies trauma, fall , or injury. Pt. denies any cough, hemoptysis, hematemesis, nausea, vomiting, fever, or chills. Pt. also denies having any seizure or consuming any alcohol. ROS: See HPI, Pt. does report pain in the left hip where his earlier bruise is associated with activity, not a new finding, bruising from previous admission still present. PMHx: ETOH abuse (last drink 2 weeks ago), Epilepsy controlled via Keppra (last seizure 3-4 years ago) PsurgHx: TIPS in 2014 PHospHx: multiple ED visits for ETOH abuse FamilyHx: Father [place], mother breast cancer, siblings alive and healthy SocialHx: -7 cigarettes per day since 15, ETOH abuse, and denies illicit drug use -lives in [place] with roommate -Contact info sister Missy given: [phone] - 1 year ago from ETOH abuse Allergies: ASA Home Meds: Keppra PMD: Dr. Moreno at [facility] E.D. Course - D-dimer - CT chest - Venous Duplex - Troponins x 3 D-Dimer elevated 10.4 Troponin [address] chest: IMPRESSION: Limited by patient motion, no aortic aneurysm or dissection, no central or large peripheral pulmonary embolus; small right pleural effusion with basilar airspace disease; no acute displaced rib fractures ; TIPS catheter; splenomegaly An acute nondisplaced rib fracture may be radiographically occult Additional findings as described above. Duplex bilateral legs: no DVT Present on Admission - Present on Admission Any Indicators Present on Admission: No History of DVT/PE: No History of Uncontrolled Diabetes: No Urinary Catheter: No Decubitus Ulcer Present: No Review of Systems - Review of Systems Review of Systems: See HPI Past Patient History - Infectious Disease Hx of Infectious Diseases: None - Tetanus Immunizations Tetanus Immunization: Unknown - Past Medical History & Family History Past Medical History?: Yes - Past Social History Smoking Status: Heavy Smoker > 10 Cigarettes Daily - CARDIAC Hx Hypertension: Yes (patient denies) - PULMONARY Hx Respiratory Disorders: No - NEUROLOGICAL Hx Parkinson's Disease: No Hx Seizures: Yes - HEENT Hx HEENT Problems: Yes Other/Comment: use glasses - RENAL Hx Chronic Kidney Disease: No - ENDOCRINE/METABOLIC Hx Endocrine Disorders: No - HEMATOLOGICAL/ONCOLOGICAL Hx Anemia: Yes - INTEGUMENTARY Hx Dermatological Problems: No - MUSCULOSKELETAL/RHEUMATOLOGICAL Hx Fractures: Yes (L hand 5th digit, L shoulder) - GASTROINTESTINAL Hx Gastritis: Yes Hx Pancreatitis: Yes (patient denies) - PSYCHIATRIC Hx Psychophysiologic Disorder: No Hx Substance Use: No - SURGICAL HISTORY Other/Comment: "Stomach cauterized"; TIPS (Liver Stent);. Endoscopy - ANESTHESIA Hx Anesthesia: Yes Hx Anesthesia Reactions: No Meds Allergies/Adverse Reactions: Allergies Allergy/AdvReac Type Severity Reaction Status Date / Time aspirin Allergy NAUSEA Verified 11/07/16 15:22 Physical Exam - Constitutional Appears: Non-toxic, No Acute Distress - Head Exam Head Exam: ATRAUMATIC, NORMOCEPHALIC - Neck Exam Neck exam: Positive for: Normal Inspection. Negative for: Lymphadenopathy Additional comments: Negative for JVD - Respiratory Exam Respiratory Exam: Clear to Auscultation Bilateral, NORMAL BREATHING PATTERN - Cardiovascular Exam Cardiovascular Exam: REGULAR RHYTHM, +S1, +S2. absent: JVD - GI/Abdominal Exam GI & Abdominal Exam: Organomegaly (Hepatomegaly appreciated), Soft. absent: Tenderness - Extremities Exam Extremities exam: Positive for: full ROM, normal capillary refill, pedal pulses present. Negative for: calf tenderness - Neurological Exam Neurological exam: Alert, Normal Gait, Oriented x3 Additional comments: Strength +5/5 upper and lower extremities - Psychiatric Exam Psychiatric exam: Normal Affect, Normal Mood - Skin Additional comments: + Bruising noted on Left hip, posterior buttock, & Left anterior thigh appears well healing and non-tender Results - Vital Signs Recent Vital Signs: Last Vital Signs Temp 97.9 F 11/07/16 21:02 Pulse 70 05/20/17 21:02 Resp 16 11/07/16 21:02 BP 108/66 11/07/16 21:02 Pulse Ox 97 11/07/16 23:43 - Labs Result Diagrams: 11/07/16 17:00 11/07/16 17:00 Labs: Laboratory Results - last 24 hr 11/07/16 11/07/16 11/07/16 17:00 17:00 17:00 WBC 4.9 RBC 2.55 L Hgb 8.3 L Hct 24.2 L MCV 94.6 H MCH 32.7 H MCHC 34.5 RDW 19.5 H Plt Count 58 L MPV 8.9 Neut % (Auto) 62.8 Lymph % (Auto) 16.0 L Petroleum % (Auto) 17.3 H Eos % (Auto) 3.6 Baso % (Auto) 0.3 Neut # 3.1 Lymph # 0.8 L Petroleum # 0.9 H Eos # 0.2 Baso # 0.0 PT 20.1 H INR 1.93 H APTT 37.1 H D-Dimer, Quantitative Cancelled Sodium 133 Potassium 4.5 Chloride 106 Carbon Dioxide 19 L Anion Gap 13 BUN 7 L Creatinine 0.6 L Est GFR ( Amer) > 60 Est GFR (Non-Af Amer) > 60 Random Glucose 101 Calcium 7.8 L Total Bilirubin 7.2 H AST 101 H ALT 47 Alkaline Phosphatase 137 H D Troponin I < 0.0120 NT-Pro-B Natriuret Pep 377 Total Protein 7.7 Albumin 2.9 L Globulin 4.8 H Albumin/Globulin Ratio 0.6 L 11/07/16 18:20 WBC RBC Hgb Hct MCV MCH MCHC RDW Plt Count MPV Neut % (Auto) Lymph % (Auto) Petroleum % (Auto) Eos % (Auto) Baso % (Auto) Neut # Lymph # Petroleum # Eos # Baso # PT INR APTT D-Dimer, Quantitative 10.46 H Sodium Potassium Chloride Carbon Dioxide Anion Gap BUN Creatinine Est GFR ( Amer) Est GFR (Non-Af Amer) Random Glucose Calcium Total Bilirubin AST ALT Alkaline Phosphatase Troponin I NT-Pro-B Natriuret Pep Total Protein Albumin Globulin Albumin/Globulin Ratio Assessment & Plan - Assessment and Plan (Free Text) Assessment: 51 y/o male with a PMHx of epilepsy, ETOH abuse, Liver failure s/p TIPS procedure, recently discharged from hospital s/p blood transfusion for anemia evaluated for dyspnea Plan: 1) Dyspnea - CT chest negative - DVT negative - Echocardiogram Ordered to evaluate for pulmonary HTN - EKG normal sinus - Troponin x2 negative follow 3rd Troponin 2) Severe Anemia of Unknown Etiology- Stable Hgb 8.4 -Monitor for signs of bleeding -Hold Lovenox 3) Fulminant Liver Failure s/p TIPS -Consider GI Consult -Consider Octreotide 50 mcg Q8 4) Epilepsy (well controlled) -c/w Keppra 500mg PO BID 5) Chronic ETOH Abuse:- CIWA score = 0 -Multivitamin 6) DVT Prophylaxis -SCDs -Hold lovenox due to recent blood transfusion and anemia 7) Diet - Hepatic diet 2 gram Sodium <Jennifer Ray - Last Filed: 11/08/16 08:58> History of Present Illness - History of Present Illness History of Present Illness: ATTENDING NOTE/ ATTESTATION PATIENT SEEN AND EXAMINED. CASE DISCUSSED WITH RESIDENT. DISCHARGED 11/07/16 POST FALL -LEG HEMATOMA, DECREASED H/H. TRANSFUSED ONE UNIT PRBC - STABLE ON DISCHARGE. DEVELOPED DYSPNEA ON EXERTION POST DISCHARGED. REEVALUATED IN ED. NO SIGN OF PE,OR ACS AT THIS POINT. WILL BE READMITTED - FOR FURTHER EVALUATION. AGREE WITH PLAN. Results - Vital Signs Recent Vital Signs: Last Vital Signs Temp 98.3 F 11/08/16 08:01 Pulse 89 11/08/16 08:01 Resp 18 11/08/16 08:01 BP 110/64 11/08/16 08:01 Pulse Ox 99 11/08/16 08:01 - Labs Result Diagrams: 11/07/16 17:00 11/07/16 17:00 Labs: Laboratory Results - last 24 hr 11/08/16 05:45 Troponin I < 0.0120
--- NOTE | 2016-11-08 00:16 | CARD ---
APPROVED REPORT EKG Measurement Heart [id number] <Conclusion> Normal sinus rhythm Normal ECG
--- NOTE | 2016-11-08 01:59 | US ---
EXAM: US Duplex Bilateral Lower Extremity Veins CLINICAL HISTORY: 51 years old, male; Injury or trauma; Fall; Follow-up exam; Lacerated extremity blood vessel; Injury date: 11/02/2016; Additional info: Leg pain and swelling TECHNIQUE: Real-time ultrasound scan of the veins of the bilateral lower extremities with color Doppler flow, spectral waveform analysis and compression. COMPARISON: No relevant prior studies available. FINDINGS: Right deep veins: Unremarkable. No DVT in the right common femoral, femoral, proximal deep femoral or popliteal veins. The veins are compressible with normal color flow and augmentation. Right superficial veins: Unremarkable. No thrombus in the visualized right greater saphenous vein. Left deep veins: Unremarkable. No DVT in the left common femoral, femoral, proximal deep femoral or popliteal veins. The veins are compressible with normal color flow and augmentation. Left superficial veins: Unremarkable. No thrombus in the visualized left greater saphenous vein. Soft tissues: No acute findings. No popliteal cyst. IMPRESSION: Normal bilateral lower extremity duplex venous ultrasound. A
[2016-11-08] MEDS ORDERED: Lidocaine 5% Patch TD ONE (02:23)
[2016-11-08] MEDS ORDERED: Morphine 15 mg Immediate Release Tab PO PRN (05:50)
[2016-11-08] MEDS: Multivitamin With Minerals Tab PO SCH (09:18)
--- NOTE | 2016-11-08 11:16 | CP.PCM.PN ---
<EarlKian - Last Filed: 11/08/16 11:21> Subjective - Date & Time of Evaluation Date of Evaluation: 11/08/16 Time of Evaluation: 09:25 - Subjective Subjective: 51 y/o M admitted for acute onset SOB, seen at bedside in not distress. Patient is seated in bed. Denies SOB, CP, palpitations, dizziness or headache. He is tolerating PO diet. Denies changes in urination or stools. Still c/o of " feeling sore" in general since the fall but is improving. Discussed with patient that he needs to be on NPO until abd US is done later on today. He verbalized understanding Objective - Vital Signs/Intake and Output Vital Signs (last 24 hours): Temp Pulse Resp BP Pulse Ox 98.3 F 89 18 110/64 97 11/08/16 08:01 11/08/16 08:01 11/08/16 08:01 11/08/16 08:01 11/08/16 09:34 - Medications Medications: Current Medications Acetaminophen (Tylenol 325mg Tab) 650 mg PO Q6 PRN PRN Reason: Pain, moderate (4-7) Last Admin: 11/08/16 09:17 Dose: 650 mg Levetiracetam (Keppra) 500 mg PO Q12H JANNIE Last Admin: 11/08/16 02:53 Dose: 500 mg Morphine Sulfate (Morphine Immediate Release Tab) 15 mg PO Q4 PRN PRN Reason: Pain, severe (8-10) Last Admin: 11/08/16 06:01 Dose: 15 mg Multivitamins/Minerals (Therapeutic-M Tab) 1 tab PO DAILY [facility] Last Admin: 11/08/16 09:18 Dose: 1 tab - Labs Labs: PT 20.1 SECONDS (9.6-11.2) H 11/07/16 17:00 INR 1.93 (0.92-1.08) H 11/07/16 17:00 APTT 37.1 SECONDS (23.3-32.5) H 11/07/16 17:00 - Constitutional Appears: Non-toxic, No Acute Distress - Eye Exam Eye Exam: PERRL - ENT Exam ENT Exam: Mucous Membranes Moist - Respiratory Exam Respiratory Exam: Clear to Ausculation Bilateral, NORMAL BREATHING PATTERN. absent: Rales, Wheezes - Cardiovascular Exam Cardiovascular Exam: RRR, +S1, +S2. absent: Gallop - GI/Abdominal Exam GI & Abdominal Exam: Soft, Normal Bowel Sounds. absent: Rebound - Extremities Exam Extremities Exam: Full ROM, Normal Capillary Refill - Neurological Exam Neurological Exam: Alert, Awake, Oriented x3 - Skin Skin Exam: Pallor, Warm. absent: Intact ( L/groin area ecchymosis seems in resolution.) Assessment and Plan - Assessment and Plan (Free Text) Assessment: 51 y/o male with a PMHx of epilepsy, ETOH abuse, Liver failure s/p TIPS procedure, admitted for new onset SOB 1) Dyspnea - CT chest: no PE or Pneumonia. Small pleural effusion: (Please see full report) - LE US: DVT negative(Please see full report) - F/U Echocardiogram to evaluate for pulmonary HTN - Troponin x3 negative - Cardiology consult(Dr Brown) 2) Acute on chronic anemia unknown origin -s/p fall with multiple ecchymotic lesions Stable Hgb 8.4 on admission -Monitor for signs of bleeding -Repeat Hgb AM 3)Hyperbilirrubinemia - Bili 7.2(elevated bili levels above his basal, noticed since October 16/2017 after reviewing patient records) - Rule out gallbladder disease - Alkphosp: 137H - F/U direct bili levels - Abd US ordered - NPO until dinner 4) Liver Failure s/p TIPS -Consider GI Consult 5) Epilepsy (well controlled) -c/w Keppra 500mg PO BID 6) Chronic ETOH Abuse:- CIWA score = 0 -Multivitamin 7) DVT Prophylaxis -SCDs -Hold lovenox due to recent blood transfusion and anemia 8) Diet - Hepatic diet 2 gram Sodium <Jennifer Ray - Last Filed: 11/09/16 10:56> Subjective - Subjective Subjective: ATTENDING NOTE/ ATTESTATION PATIENT SEEN AND EXAMINED. CASE DISCUSSED WITH RESIDENT. AGREE WITH PLAN - CARDIOLOGY CONSULT, ECHOCARDIOGRAM, REPEAT HGB/HCT. Objective - Vital Signs/Intake and Output Vital Signs (last 24 hours): Temp Pulse Resp BP Pulse Ox 98.4 F 81 18 105/56 L 98 11/09/16 08:38 11/09/16 08:38 11/09/16 08:38 11/09/16 08:38 11/09/16 08:38 - Medications Medications: Current Medications Acetaminophen (Tylenol 325mg Tab) 650 mg PO Q8 [facility] Last Admin: 11/09/16 10:32 Dose: 650 mg Levetiracetam (Keppra) 500 mg PO Q12H [facility] Last Admin: 11/09/16 03:15 Dose: 500 mg Multivitamins/Minerals (Therapeutic-M Tab) 1 tab PO DAILY [facility] Last Admin: 11/09/16 10:34 Dose: 1 tab Zinc Acetate/Diphenhydramine (Benadryl 1% Zinc Acetate -0.1%) 1 applic TOP Q12 PRN PRN Reason: Itching / Pruritus Last Admin: 11/08/16 15:18 Dose: 1 applic - Labs Labs: 11/09/16 05:25 11/09/16 05:25 PT 20.1 SECONDS (9.6-11.2) H 11/07/16 17:00 INR 1.93 (0.92-1.08) H 11/07/16 17:00 APTT 37.1 SECONDS (23.3-32.5) H 11/07/16 17:00
[2016-11-08] MEDS ORDERED: Diphenhydramine 1% CREAM TOP PRN (13:56)
[2016-11-09 06:35] LABS: MEAN CELL VOLUME 93.5 fl (80.0-94.0); MEAN CORPUSCULAR HEMOGLOBIN 31.8 pg (27.0-31.0); RED CELL DISTRIBUTION WIDTH 20.3 % (11.5-14.5); WHITE BLOOD COUNT 4.6 K/uL (4.8-10.8)
[2016-11-09 06:44] LABS: ALB/GLOB RATIO 0.6 (1.0-2.1); ALKALINE PHOSPHATASE 151 U/L (38-126); ALT/SGPT 56 U/L (21-72); AST/SGOT 101 U/L (17-59); BILIRUBIN,TOTAL 6.3 mg/dl (0.2-1.3); BLOOD UREA NITROGEN 10 mg/dl (9-20); CALCIUM 8.1 mg/dL (8.4-10.2); CARBON DIOXIDE 22 mmol/L (22-30); CHLORIDE 105 mmol/L (98-107); GFR AFRICAN-AMERICAN > 60; GLUCOSE,RANDOM 93 mg/dL (75-110); POTASSIUM 4.5 MMOL/L (3.6-5.0); SODIUM 134 mmol/l (132-148); TOTAL PROTEIN 7.3 G/DL (6.3-8.2)
[2016-11-09 08:38] VITALS: RESP 18
[2016-11-09] MEDS: Multivitamin With Minerals Tab PO SCH (10:34)
--- NOTE | 2016-11-09 10:44 | US ---
HISTORY: Liver cirrhosis. COMPARISON: Limited abdominal ultrasound performed 10/17/16, CT chest, abdomen, and pelvis with contrast performed 10/16/16 TECHNIQUE: Sonographic evaluation of the abdomen. FINDINGS: LIVER: Measures 18.2 cm in sagittal dimension. Nodular hepatic contour. Heterogeneous coarsened echotexture limits evaluation for small masses. No focal hepatic mass identified. The main portal vein appears patent with normal directional flow. Tips. GALLBLADDER: Gallstones. Sludge. Mild gallbladder wall thickening; gallbladder wall measures approximately 4 mm. Negative sonographic Monte's sign as assessed by the carbon electrodes supervisor. COMMON BILE DUCT: Measures 9 mm. Intrahepatic biliary ductal dilatation. PANCREAS: Not well visualized. RIGHT KIDNEY: Measures 12.0 x 6.5 x 5.2 cm. No hydronephrosis or obstructing calculus identified. LEFT KIDNEY: Measures 11.6 x 5.2 x 5.2 cm. No obstructing calculus or hydronephrosis identified. SPLEEN: Measures approximately 17.3 cm. AORTA: Limited views appear unremarkable. IVC: Limited views appear unremarkable. OTHER FINDINGS: None. IMPRESSION: Splenomegaly. Heterogeneous coarsened hepatic echotexture. Nodular hepatic contour. Varices. Tips. Findings consistent with provided history of cirrhosis. Common bile duct and intrahepatic biliary ductal dilatation. Cholelithiasis. Gallbladder sludge. Mild gallbladder wall thickening. Negative sonographic Monte's sign. Correlate clinically.
[2016-11-09 12:22] VITALS: BP 114/65; PULSE 92; TEMP 99; O2SAT 97
--- NOTE | 2016-11-09 14:01 | CP.PCM.DIS ---
Provider - Provider Date of Admission: 11/08/16 10:51 Attending physician: Chanelle Rowe MD Primary care physician: [facility] Dr Nishant Moreno Time Spent in preparation of Discharge (in minutes): 35 Diagnosis - Discharge Diagnosis (1) Cholelithiasis Status: Acute Comment: F/U Sx clinic as outpatient. Asymptomatic (2) Hip pain Status: Acute Comment: Improved. S/P fall (3) SOB (shortness of breath) Status: Acute Comment: Resolved. PE negative (4) Anemia Status: Acute Priority: High Comment: Acute on chronic anemia. F/U GI as outpatient (5) Fulminant liver failure Status: Acute Comment: F/U as outpatient Hospital Course - Lab Results Lab Results: Most Recent Lab Values WBC 4.6 K/uL (4.8-10.8) L 11/09/16 05:25 RBC 2.57 Mil/uL (4.40-5.90) L 11/09/16 05:25 Hgb 8.2 g/dL (12.0-18.0) L 11/09/16 05:25 Hct 24.0 % (35.0-51.0) L 11/09/16 05:25 MCV 93.5 fl (80.0-94.0) 11/09/16 05:25 MCH 31.8 pg (27.0-31.0) H 11/09/16 05:25 MCHC 34.0 g/dL (33.0-37.0) 11/09/16 05:25 RDW 20.3 % (11.5-14.5) H 11/09/16 05:25 Plt Count 72 K/uL (130-400) L 11/09/16 05:25 MPV 8.9 fl (7.2-11.7) 11/07/16 17:00 Neut % (Auto) 62.8 % (50.0-75.0) 11/07/16 17:00 Lymph % (Auto) 16.0 % (20.0-40.0) L 11/07/16 17:00 Towner % (Auto) 17.3 % (0.0-10.0) H 11/07/16 17:00 Eos % (Auto) 3.6 % (0.0-4.0) 11/07/16 17:00 Baso % (Auto) 0.3 % (0.0-2.0) 11/07/16 17:00 Neut # 3.1 K/uL (1.8-7.0) 11/07/16 17:00 Lymph # 0.8 K/uL (1.0-4.3) L 11/07/16 17:00 Towner # 0.9 K/uL (0.0-0.8) H 11/07/16 17:00 Eos # 0.2 K/uL (0.0-0.7) 11/07/16 17:00 Baso # 0.0 K/uL (0.0-0.2) 11/07/16 17:00 PT 20.1 SECONDS (9.6-11.2) H 11/07/16 17:00 INR 1.93 (0.92-1.08) H 11/07/16 17:00 APTT 37.1 SECONDS (23.3-32.5) H 11/07/16 17:00 D-Dimer, Quantitative 10.46 mg/L FEU (0-0.50) H 11/07/16 18:20 Sodium 134 mmol/l (132-148) 11/09/16 05:25 Potassium 4.5 MMOL/L (3.6-5.0) 11/09/16 05:25 Chloride 105 mmol/L (98-107) 11/09/16 05:25 Carbon Dioxide 22 mmol/L (22-30) 11/09/16 05:25 Anion Gap 12 (10-20) 11/09/16 05:25 BUN 10 mg/dl (9-20) 11/09/16 05:25 Creatinine 0.6 mg/dL (0.8-1.5) L 11/09/16 05:25 Est GFR ( Amer) > 60 11/09/16 05:25 Est GFR (Non-Af Amer) > 60 11/09/16 05:25 Random Glucose 93 mg/dL (75-110) 11/09/16 05:25 Calcium 8.1 mg/dL (8.4-10.2) L 11/09/16 05:25 Total Bilirubin 6.3 mg/dl (0.2-1.3) H 11/09/16 05:25 Direct Bilirubin 3.5 mg/ml (0.0-0.4) H 11/09/16 05:25 AST 101 U/L (17-59) H 11/09/16 05:25 ALT 56 U/L (21-72) 11/09/16 05:25 Alkaline Phosphatase 151 U/L (38-126) H 11/09/16 05:25 Troponin I < 0.0120 ng/mL (0.00-0.120) 11/08/16 05:45 NT-Pro-B Natriuret Pep 377 pg/ml (0-450) 11/07/16 17:00 Total Protein 7.3 G/DL (6.3-8.2) 11/09/16 05:25 Albumin 2.6 g/dL (3.5-5.0) L 11/09/16 05:25 Globulin 4.7 gm/dL (2.2-3.9) H 11/09/16 05:25 Albumin/Globulin Ratio 0.6 (1.0-2.1) L 11/09/16 05:25 - Hospital Course Hospital Course: 51 y/o M with PMhx of liver cirrhosis, chronic anemia, Etoh abuse presented to ED for SOB after he walked "15 blocks". pAtient had been DC from hosp recently and was S/P 1 PRBC transfusion for acute on chronic anemia. Hgb during present admission 8.2 on 2 consecutive days improved from 6.9 before transfusion. Patient SOB resolved in ED and VS were WNL including O2 sat. Bilirrubin level found to be above his basal and abd US was ordered showing Cholelithiasis and bilis sludge. Patient denies abd pain and Monet sign is negative. No leukocytosis and afebrile. He is decided to dc home with pain meds, and appt for PMD, Sx and GI were made and given to patient for outpatient f/u. Discharge meds: Ferrous Sulfate [Feosol] 325 mg PO BID Omeprazole Magnesium [Prilosec Otc] 20 mg PO BID levETIRAcetam [Keppra] 500 mg PO BID Folic Acid/Mv,Iron,Min [One Daily 1 each PO DAILY Complete Tablet] Thiamine [Vitamin B1 Tab] 100 mg PO DAILY Tramadol 50mg BID PRN for moderate pain Discharge Exam - Head Exam Head Exam: ATRAUMATIC, NORMAL INSPECTION, NORMOCEPHALIC - Eye Exam Eye Exam: PERRL - ENT Exam ENT Exam: Mucous Membranes Moist - Respiratory Exam Respiratory Exam: Clear to PA & Lateral, NORMAL BREATHING PATTERN, UNREMARKABLE - Cardiovascular Exam Cardiovascular Exam: REGULAR RHYTHM, +S1, +S2. absent: Gallop - GI/Abdominal Exam GI & Abdominal Exam: Normal Bowel Sounds, Unremarkable. absent: Tenderness - Extremities Exam Extremities exam: normal capillary refill - Neurological Exam Neurological exam: Alert, Oriented x3 - Psychiatric Exam Psychiatric exam: Normal Affect, Normal Mood - Skin Skin Exam: Pallor, Warm Additional comments: Ecchymosis L/groin area Discharge Plan - Discharge Medications Prescriptions: traMADol [Ultram] 50 mg PO BID PRN #5 tab PRN Reason: Pain, Moderate (4-7) - Follow Up Plan Condition: FAIR Disposition: HOME/ ROUTINE Instructions: Dyspnea (GEN) Additional Instructions: F/U with PMD at [facility] on November 13 1 pm F/U with Dr Bradley(GI) at specialty clinic on November 30/2017 1 pm F/U with Dr Staples(Sx) at specialty clinic on December 03/2017 10:45am
--- NOTE | 2016-11-09 19:06 | CARD ---
APPROVED REPORT EXAM: Two-dimensional and M-mode echocardiogram with Doppler and color Doppler. Other Information Quality : GoodRhythm : NSR INDICATION Dyspnea 2D DIMENSIONS IVSd0.64 (0.7-1.1cm)LVDd5.27 (3.9-5.9cm) LVOT Diameter2.19 (1.8-2.4cm)PWd1.14 (0.7-1.1cm) IVSs1.24 (0.8-1.2cm)LVDs3.24 (2.5-4.0cm) FS (%) 38.4 %PWs1.53 (0.8-1.2cm) M-Mode DIMENSIONS Left Atrium (MM)4.47 (2.5-4.0cm)IVSd1.41 (0.7-1.1cm) Aortic Root3.09 (2.2-3.7cm)LVDd5.59 (4.0-5.6cm) Aortic Cusp Exc.2.06 (1.5-2.0cm)PWd1.18 (0.7-1.1cm) IVSs1.76 cmFS (%) 44 % LVDs3.15 (2.0-3.8cm)PWs1.65 cm Mitral Valve E/A ratio0.0 TDI E/Lateral E'0.0E/Medial E'0.0 Pulmonary Valve PV Peak [id number]/s LEFT VENTRICLE The left ventricle is normal size. There is normal left ventricular wall thickness. The left ventricular function is normal. The left ventricular ejection fraction is 60% There is normal LV segmental wall motion. The left ventricular diastolic function is normal. No left ventricle thrombus noted on this study. There is no ventricular septal defect visualized. There is no left ventricular aneurysm. There is no mass noted in the left ventricle. RIGHT VENTRICLE The right ventricle is normal size. There is normal right ventricular wall thickness. The right ventricular systolic function is normal. ATRIA The left atrium size is normal. The right atrium size is normal. The interatrial septum is intact with no evidence for an atrial septal defect. AORTIC VALVE The aortic valve is normal in structure and function. No aortic regurgitation is present. There is no aortic valvular stenosis. There is no aortic valvular vegetation. MITRAL VALVE The mitral valve is normal in structure and function. There is no evidence of mitral valve prolapse. There is no mitral valve stenosis. There is no mitral valve regurgitation noted. TRICUSPID VALVE The tricuspid valve is normal in structure and function. There is no tricuspid valve regurgitation noted. There is no tricuspid valve prolapse or vegetation. There is no tricuspid valve stenosis. PULMONIC VALVE The pulmonary valve is normal in structure and function. There is no pulmonic valvular regurgitation. There is no pulmonic valvular stenosis. GREAT VESSELS The aortic root is normal in size. The ascending aorta is normal in size. The IVC is normal in size and collapses >50% with inspiration. PERICARDIAL EFFUSION The pericardium appears normal. There is no pleural effusion. <Conclusion> Normal Echocardiogram
== END 2016-11-09 15:40 | disposition home or self-care (01) | DRG 560 ==
LOC: H.ER 15:03 → H.ERHOLD 11-08 00:24 → H.TEL 11-08 01:59 → OBSVTOIN 11-08 10:51
PROVIDERS: ADMIT Family Medicine Geriatric Medicine; ATTEND Family Medicine Geriatric Medicine
DX: M25.552 Pain in left hip (principal); K72.90 Hepatic failure, unspecified without coma; K74.60 Unspecified cirrhosis of liver; R06.02 Shortness of breath; F10.10 Alcohol abuse, uncomplicated; D64.9 Anemia, unspecified; G40.909 Epilepsy, unspecified, not intractable, without status epilepticus; F17.210 Nicotine dependence, cigarettes, uncomplicated; K80.20 Calculus of gallbladder without cholecystitis without obstruction; Z91.81 History of falling

== ENCOUNTER 2017-01-10 15:54 | Emergency (ER) | payer MEDICAID ==
[2017-01-10 15:56] VITALS: BMI 23.0
[2017-01-10 16:31] VITALS: BP 127/67; RESP 16; TEMP 99.7; O2SAT 99
--- NOTE | 2017-01-10 16:36 | ED PDOC ---
HPI: Seizure Time Seen by Provider: 01/10/17 16:00 Chief Complaint (Nursing): Seizure Chief Complaint (Provider): Seizure History Per: Patient History/Exam Limitations: no limitations Recent Seizure Activity Began: Just Before Arrival Number Of Seizures: One Length Of Seizures (Duration): Minutes (10x) Quality Of Seizure: Generalized Precipitating Factor(s): None. denies: Missed Dose Of Anti-seizure Medication ( patient denies), Recent Change In Medication Or Dose, Recent Alcohol Ingestion, Recent Street Drugs, Recent Head Trauma Associated Symptoms: denies: Bit Tongue, Incontinence Of Urine, Incontinence Of Stool, Injury As A Result Of Seizure Activity Post-ictal Period: No Severity: Moderate Additional Complaint(s): 51 year old male with a pertinent medical history of seizures, chronic left shoulder pain, and liver cirrhosis presents to the ED status post seizure that occurred just prior to arrival. He reports that he was at a bar watching a football game with his friends, he left to go to the bathroom, and his friend witnessed him have a generalized tonic clonic seizure for 10x minutes. He denies having any injuries but reports that fell on his right side. He reports that he has been compliant with his seizure medications (Keppra), but he is running low. He is also unable to take pain medications for his chronic left shoulder pain because he has liver cirrhosis. He reports feeling mild dizziness and left shoulder pain, and denies having a headache, fevers, cough, vomiting, and diarrhea. PMD: Chanelle Rowe MD, [facility] Neurologist: Patient does not recall, neurologist from [place]. Past Medical History Reviewed: Historical Data, Nursing Documentation, Vital Signs Vital Signs: Last Vital Signs Temp 99.7 F H 01/10/17 15:59 Pulse 80 01/10/17 16:44 Resp 16 01/10/17 15:59 BP 127/67 01/10/17 15:59 Pulse Ox 99 01/10/17 16:44 - Medical History PMH: Anemia, Back Problems (herniated disc), Fractures (L hand 5th digit, L shoulder), Gastritis, Pancreatitis (patient denies), Seizures, Chronic Pain ( left shoulder) Denies: HTN (patient denies), Parkinson's Disease, Chronic Kidney Disease Other PMH: liver cirrhosis - Surgical History Surgical History: Endoscopy - Family History Family History: States: Other Other Family History: sister has colon cancer - Social History Current smoker - smoking cessation education provided: No Alcohol: None (history of alcohol abuse) Drugs: Denies - Home Medications Home Medications: Ambulatory Orders Medication Instructions Recorded Ferrous Sulfate [Feosol] 325 mg PO BID 10/16/16 Omeprazole Magnesium [Prilosec Otc] 20 mg PO BID 10/16/16 levETIRAcetam [Keppra] 500 mg PO BID 10/16/16 Folic Acid/Mv,Iron,Min [One Daily 1 each PO DAILY #30 tablet 10/22/16 Complete Tablet] Thiamine [Vitamin B1 Tab] 100 mg PO DAILY #30 tab 10/22/16 traMADol [Ultram] 50 mg PO BID PRN #5 tab 11/09/16 - Allergies Allergies/Adverse Reactions: Allergies Allergy/AdvReac Type Severity Reaction Status Date / Time aspirin Allergy NAUSEA Verified 11/07/16 15:22 Review of Systems ROS Statement: Except As Marked, All Systems Reviewed And Found Negative Constitutional: Negative for: Fever, Chills Cardiovascular: Negative for: Chest Pain Respiratory: Negative for: Cough Gastrointestinal: Negative for: Nausea, Vomiting, Abdominal Pain, Diarrhea Musculoskeletal: Positive for: Shoulder Pain (left) Neurological: Positive for: Dizziness (mild). Negative for: Headache Physical Exam - Reviewed Nursing Documentation Reviewed: Yes Vital Signs Reviewed: Yes - Physical Exam Appears: Positive for: Well, Non-toxic, No Acute Distress Head Exam: Positive for: ATRAUMATIC, NORMOCEPHALIC Skin: Positive for: Normal Color, Warm, Dry Eye Exam: Positive for: Normal appearance, EOMI, PERRL Cardiovascular/Chest: Positive for: Regular Rate, Rhythm Respiratory: Positive for: Normal Breath Sounds. Negative for: Respiratory Distress Gastrointestinal/Abdominal: Positive for: Normal Exam, Soft. Negative for: Tenderness Back: Positive for: Normal Inspection Extremity: Positive for: Other (left shoulder: pain with range of motion. no swelling, no deformity) Neurologic/Psych: Positive for: Alert, Oriented (3x) - Laboratory Results Result Diagrams: 01/10/17 16:50 01/10/17 16:29 - ECG ECG: Positive for: Interpreted By Me, Viewed By Me ECG Rhythm: Positive for: Normal QRS, Sinus Rhythm (normal). Negative for: ST/ T Changes Rate: 80 (normal) O2 Sat by Pulse Oximetry: 99 (RA) Pulse Ox Interpretation: Normal Medical Decision Making Medical Decision Makin:00 Initial impression: 51 year old male with a breakthrough seizure and a history of recurrent seizures, and chronic left shoulder pain. Initial plan: * EKG * alcohol serum * CMP * magnesium * CBC * ultram 50 mg PO * accucheck * reevaluation Scribe Attestation: Documented by Haydee Vela, acting as a scribe for Cathy Salazar MD. Provider Scribe Attestation: All medical record entries made by the Scribe were at my direction and personally dictated by me. I have reviewed the chart and agree that the record accurately reflects my personal performance of the history, physical exam, medical decision making, and the department course for this patient. I have also personally directed, reviewed, and agree with the discharge instructions and disposition. Disposition - Clinical Impression Clinical Impression: Recurrent seizures - Patient ED Disposition Is Patient to be Admitted: No Doctor Will See Patient In The: Office Counseled Patient/Family Regarding: Studies Performed, Diagnosis, Need For Followup - Disposition Disposition: Left W/O Treatment Disposition Time: 17:51 Condition: STABLE - POA Present On Arrival: None
[2017-01-10 16:43] VITALS: PULSE 80
[2017-01-10 17:09] LABS: ALBUMIN 2.9 g/dL (3.5-5.0); ALT/SGPT 62 U/L (21-72); AST/SGOT 118 U/L (17-59); BLOOD UREA NITROGEN 11 mg/dl (9-20); CALCIUM 7.6 mg/dL (8.4-10.2); GFR AFRICAN-AMERICAN > 60; GFR NON-AFRICAN AMERICAN > 60; MAGNESIUM 1.4 MG/DL (1.6-2.3)
[2017-01-10 17:10] LABS: EOS # 0.4 K/uL (0.0-0.7); EOS % 10.1 % (0.0-4.0); HEMOGLOBIN 9.3 g/dL (12.0-18.0); LYMPH # 1.1 K/uL (1.0-4.3); LYMPH % 28.7 % (20.0-40.0); MEAN CORPUSCULAR HEMOGLOBIN 32.8 pg (27.0-31.0); MEAN CORPUSCULAR HGB CONC 34.2 g/dL (33.0-37.0); MEAN PLATELET VOLUME 8.1 fl (7.2-11.7); MONO # 0.3 K/uL (0.0-0.8); MONO % 7.6 % (0.0-10.0); NEUT # 2.1 K/uL (1.8-7.0); NEUT % 52.6 % (50.0-75.0); NRBC % 0.1 % (0.0-0.0); RBC 2.85 Mil/uL (4.40-5.90); RED CELL DISTRIBUTION WIDTH 15.8 % (11.5-14.5)
[2017-01-10 17:19] LABS: ALB/GLOB RATIO 0.6 (1.0-2.1)
[2017-01-10] MEDS ORDERED: SlowMag 1 TAB PO STA (17:26)
--- NOTE | 2017-01-11 11:13 | CARD ---
APPROVED REPORT EKG Measurement Heart [id number] <Conclusion> Normal sinus rhythm Normal ECG
== END 2017-01-10 18:00 | disposition left against medical advice (07) ==
LOC: H.ER 15:54
DX: G40.909 Epilepsy, unspecified, not intractable, without status epilepticus (principal); G89.29 Other chronic pain; K74.60 Unspecified cirrhosis of liver

== ENCOUNTER 2017-01-13 10:02 | Inpatient (IN) | payer MEDICAID ==
[2017-01-13 10:02] VITALS: BMI 23.0
--- NOTE | 2017-01-13 10:56 | ED PDOC ---
Lower Extremity Pain/Injury Time Seen by Provider: 01/13/17 10:12 Chief Complaint (Nursing): Lower Extremity Problem/Injury Chief Complaint (Provider): right leg pain History Per: Patient History/Exam Limitations: no limitations Onset/Duration Of Symptoms: Days (x 2) Additional Complaint(s): Shreyas Sepulveda is a 51 year old male, with a previous medical history of epilepsy and cirrhosis, who presents to the ED with complaints of right leg pain associated with swelling and bruising which he reports started 2 days ago secondary to "sleeping on coins". Patient denies any other symptoms at this time. He reports last seizure was 2 days ago. PMD: [facility] Past Medical History Reviewed: Historical Data, Nursing Documentation, Vital Signs Vital Signs: Last Vital Signs Temp 98.4 F 01/13/17 10:14 Pulse 128 H 01/13/17 10:14 Resp 18 01/13/17 10:14 BP 107/63 01/13/17 10:14 Pulse Ox 98 01/13/17 10:14 - Medical History PMH: Anemia, Back Problems (herniated disc), Fractures (L hand 5th digit, L shoulder), Gastritis, HTN (patient denies), Pancreatitis (patient denies), Seizures, Chronic Pain (left shoulder) Denies: Parkinson's Disease, Chronic Kidney Disease - Surgical History Surgical History: Endoscopy - Family History Family History: States: No Known Family Hx - Home Medications Home Medications: Ambulatory Orders Medication Instructions Recorded Ferrous Sulfate [Feosol] 325 mg PO BID 10/16/16 Omeprazole Magnesium [Prilosec Otc] 20 mg PO BID 10/16/16 levETIRAcetam [Keppra] 500 mg PO BID 10/16/16 Folic Acid/Mv,Iron,Min [One Daily 1 each PO DAILY #30 tablet 10/22/16 Complete Tablet] Thiamine [Vitamin B1 Tab] 100 mg PO DAILY #30 tab 10/22/16 traMADol [Ultram] 50 mg PO BID PRN #5 tab 11/09/16 - Allergies Allergies/Adverse Reactions: Allergies Allergy/AdvReac Type Severity Reaction Status Date / Time aspirin Allergy NAUSEA Verified 11/07/16 15:22 Review of Systems ROS Statement: Except As Marked, All Systems Reviewed And Found Negative Musculoskeletal: Positive for: Leg Pain (right leg), Other (right leg swelling ) Physical Exam - Reviewed Nursing Documentation Reviewed: Yes Vital Signs Reviewed: Yes - Physical Exam Appears: Positive for: Well, Non-toxic, No Acute Distress Head Exam: Positive for: ATRAUMATIC, NORMAL INSPECTION, NORMOCEPHALIC Skin: Positive for: Normal Color, Warm, Dry Eye Exam: Positive for: Scleral icterus ENT: Positive for: Normal ENT Inspection Neck: Positive for: Normal, Painless ROM, Supple Cardiovascular/Chest: Positive for: Regular Rate, Rhythm Respiratory: Positive for: CNT, Normal Breath Sounds Gastrointestinal/Abdominal: Positive for: Normal Exam, Bowel Sounds, Soft. Negative for: Tenderness Back: Positive for: Normal Inspection Extremity: Positive for: Tenderness (right thigh ), Swelling (right thigh ), Other (hematoma of the right thigh along with superficial ecchymosis, swelling and warmth noted ). Negative for: Normal ROM (decreased ROM at the right hip secondary to pain ), Pedal Edema, Calf Tenderness, Deformity Neurologic/Psych: Positive for: Alert, Oriented. Negative for: Motor/Sensory Deficits - Laboratory Results Result Diagrams: 01/13/17 11:25 01/13/17 11:25 - ECG O2 Sat by Pulse Oximetry: 98 (RA) Pulse Ox Interpretation: Normal Medical Decision Making Medical Decision Making: Initial Impression: Large lower extremity hematoma Initial Plan: * CT lower extremity * alcohol serum * labs * erythrocyte sedimentation * PTT * Patient * ultram 50 mg PO * x-ray right femur * x-ray right hip * reevaluation Scribe Attestation: Documented by Luisana Monson, acting as a scribe for Kary Huizar MD. Provider Scribe Attestation: All medical record entries made by the Scribe were at my direction and personally dictated by me. I have reviewed the chart and agree that the record accurately reflects my personal performance of the history, physical exam, medical decision making, and the department course for this patient. I have also personally directed, reviewed, and agree with the discharge instructions and disposition. Disposition - Clinical Impression Clinical Impression: Thigh hematoma, Thigh abscess, Cirrhosis - Patient ED Disposition Is Patient to be Admitted: Yes Doctor Will See Patient In The: Hospital - Disposition Disposition: Transfer of Care Disposition Time: 13:04 Condition: GUARDED Forms: [facility] (Malaysian) - Pt Status Changed To: Hospital Disposition Of: Inpatient - Admit Certification Admit to Inpatient:: After my assessment, the patient will require hospitalization for at least two midnights. This is because of the severity of symptoms shown, intensity of services needed, and/or the medical risk in this patient being treated as an outpatient. - POA Present On Arrival: Falls Or Trauma
[2017-01-13 12:00] LABS: BASO # 0.1 K/uL (0.0-0.2); BASO % 1.8 % (0.0-2.0); EOS # 0.2 K/uL (0.0-0.7); EOS % 3.4 % (0.0-4.0); HEMOGLOBIN 8.4 g/dL (12.0-18.0); LYMPH # 0.9 K/uL (1.0-4.3); LYMPH % 17.1 % (20.0-40.0); MEAN CELL VOLUME 97.2 fl (80.0-94.0); MEAN CORPUSCULAR HEMOGLOBIN 32.8 pg (27.0-31.0); MEAN CORPUSCULAR HGB CONC 33.7 g/dL (33.0-37.0); MEAN PLATELET VOLUME 9.1 fl (7.2-11.7); MONO # 0.6 K/uL (0.0-0.8); MONO % 11.4 % (0.0-10.0); NEUT # 3.4 K/uL (1.8-7.0); NEUT % 66.3 % (50.0-75.0); RBC 2.56 Mil/uL (4.40-5.90); RED CELL DISTRIBUTION WIDTH 16.5 % (11.5-14.5); WHITE BLOOD COUNT 5.1 K/uL (4.8-10.8)
[2017-01-13 12:11] LABS: PROTHROMBIN TIME 22.8 Seconds (9.8-13.1)
[2017-01-13 12:20] LABS: ALBUMIN 2.9 g/dL (3.5-5.0)
[2017-01-13 12:22] LABS: GFR AFRICAN-AMERICAN > 60; GFR NON-AFRICAN AMERICAN > 60
[2017-01-13 12:23] LABS: ALB/GLOB RATIO 0.7 (1.0-2.1); ALT/SGPT 48 U/L (21-72); AST/SGOT 109 U/L (17-59); BLOOD UREA NITROGEN 13 mg/dl (9-20); CALCIUM 8.5 mg/dL (8.4-10.2)
--- NOTE | 2017-01-13 13:43 | CT ---
PROCEDURE: CT of the right femur/ thigh dated 01/13/2017. COMPARISON: Correlation made with concurrent radiographs of the right femur and right hip HISTORY: Right thigh hematoma TECHNIQUE: Contiguous helical/transaxial images of the right hip were obtained. Coronal and sagittal reformats were generated. This CT exam was performed using one or more of the following dose reduction techniques: Automated exposure control, adjustment of the mA and/or kV according to patient size, and/or use of iterative reconstruction technique. . Radiation dose. Total DLP = 632.85 FINDINGS: Current study reveals no evidence of acute displaced fracture. Osseous structures appear intact. No evidence to suggest. There are infiltration changes and swelling of the anterior musculature which includes the quadriceps tendon, rectus femoris, vastus intermedius, lateralis and vastus medialis and possibly the sartorius as well. . The fat and fascial planes are effaced on as compared to the flexor musculature of the thigh which appears normal. Rule out sequela of trauma -hemorrhage versus infection. The possibility of a rhabdomyosarcoma would be less likely though not completely excluded. There is a small collection of fluid within the soft tissues anterior distal thigh greater along the anterolateral border with small suprapatellar joint effusion. . Overlying infiltration of the subcutaneous fat and minimal skin thickening. Suspect fluid extension into the lateral joint space margin. . . Impression: There is infiltration and swelling of the anterior musculature of the right thyroid including the quadriceps, rectus femoris, vastus intermedius and lateralis effacement of the fat and fascia planes of and subcutaneous infiltration all with what appears represent a small fluid collection in the inferior aspect of the distal thigh more prominent laterally of with what also appears to represent small fluid within the lateral joint space margin. Rule out posttraumatic hemorrhage, infection or less likely at infiltrating tumor. Clinical correlation recommended. Note that these findings were discussed with Dr. Huizar at approximately on 1:40 p.m. with written down and read back verification.
--- NOTE | 2017-01-13 14:23 | RAD ---
PROCEDURE: Right femur dated 01/13/2017. HISTORY: right thigh hematoma COMPARISON: Comparison/correlation made with concurrent radiographs right hip TECHNIQUE: AP and lateral views of the right femur performed FINDINGS: No evidence of acute displaced fracture nor dislocation. The osseous structures appear intact. No cortical destructive changes. No significant osteoarthritis. No obvious subcutaneous mass however there does appear to be subcutaneous swelling -infiltration distal anterior thigh. No evidence of radiopaque foreign bodies or emphysema IMPRESSION: No evidence acute displaced fracture nor dislocation. That appears to be mild subcutaneous infiltration/swelling distal anterior thigh
--- NOTE | 2017-01-13 14:24 | RAD ---
PROCEDURE: Pelvis right hip dated 01/13/2017 HISTORY: right thigh swelling COMPARISON: None. FINDINGS: BONES: No evidence of acute displaced fracture nor dislocation. The osseous structures appear intact. No cortical destructive changes. JOINTS: Both femoral heads are appropriately located within the respective acetabula. No significant osteoarthritis SOFT TISSUES: No evidence of subcutaneous air or radiopaque foreign body seen. OTHER FINDINGS: None. IMPRESSION: Unremarkable examination of the right.
--- NOTE | 2017-01-13 14:28 | CP.PCM.HP ---
History of Present Illness - History of Present Illness History of Present Illness: Pt is a 51 y/o male with pmhx of alcohol abuse, epilepsy and cirrhosis, who presents to the ED with complaints of right leg pain associated with swelling and bruising which he reports started 2 days ago secondary to "sleeping on coins ". Pt reports when injury initially occurred it was not as big or painful as it is today, but it progressively got larger and painful over the course of 2 days. Patient denies any other symptoms at this time. He reports last seizure was 2 days ago. Denies any headache, nausea, dizziness, numbness or tingling. ROS: See HPI PMHx: ETOH abuse (last drink 2 weeks ago), Epilepsy controlled via Keppra (last seizure was 2 days ago) PsurgHx: TIPS in 2014 PHospHx: multiple ED visits for ETOH abuse FamilyHx: Father [place], mother breast cancer, siblings alive and healthy SocialHx: -7 cigarettes per day since 15, ETOH abuse, and denies illicit drug use -lives in [place] with roommate -Contact info sister Missy given: [phone] - 1 year ago from ETOH abuse Allergies: ASA Home Meds: Keppra PMD: Dr. Moreno at [facility] ED course cbc, cmp, esr, PT/INR CT of the lower extremity: Infiltration changes and swelling of the anterior musculature which includes the quadriceps tendon, rectus femoris, vastus intermedius, lateralis and vastus medialis and possibly the sartorius as well. Rule out hemorrhage vs infection. Xray of femur: fluid collection anterior thigh Xray of hip: unremarkable Present on Admission - Present on Admission Any Indicators Present on Admission: No Review of Systems - Review of Systems All systems: reviewed and no additional remarkable complaints except Review of Systems: as noted in HPI Past Patient History - Infectious Disease Hx of Infectious Diseases: None - Tetanus Immunizations Tetanus Immunization: Unknown - Past Medical History & Family History Past Medical History?: Yes - Past Social History Smoking Status: Heavy Smoker > 10 Cigarettes Daily - CARDIAC Hx Cardiac Disorders: No - PULMONARY Hx Respiratory Disorders: No - NEUROLOGICAL Hx Neurological Disorder: Yes - HEENT Hx HEENT Problems: No - RENAL Hx Chronic Kidney Disease: No - ENDOCRINE/METABOLIC Hx Endocrine Disorders: No - HEMATOLOGICAL/ONCOLOGICAL Hx Blood Disorders: Yes - INTEGUMENTARY Hx Dermatological Problems: No - MUSCULOSKELETAL/RHEUMATOLOGICAL Hx Musculoskeletal Disorders: Yes - GASTROINTESTINAL Hx Gastritis: Yes Hx Pancreatitis: Yes (patient denies) - GENITOURINARY/GYNECOLOGICAL Hx Genitourinary Disorders: No - PSYCHIATRIC Hx Psychophysiologic Disorder: No - SURGICAL HISTORY Other/Comment: "Stomach cauterized"; TIPS (Liver Stent);. Endoscopy - ANESTHESIA Hx Anesthesia: Yes Hx Anesthesia Reactions: No Meds Allergies/Adverse Reactions: Allergies Allergy/AdvReac Type Severity Reaction Status Date / Time aspirin Allergy NAUSEA Verified 11/07/16 15:22 Physical Exam - Constitutional Appears: No Acute Distress, Older Than Stated Age - Eye Exam Eye Exam: EOMI, Normal appearance - Respiratory Exam Respiratory Exam: Clear to Auscultation Bilateral, NORMAL BREATHING PATTERN. absent: Rhonchi, Wheezes - Cardiovascular Exam Cardiovascular Exam: REGULAR RHYTHM, +S1, +S2 - GI/Abdominal Exam GI & Abdominal Exam: Normal Bowel Sounds, Soft. absent: Tenderness - Extremities Exam Additional comments: Right thigh: Significantly larger than the left, also has approximately circular hematoma with superficial ecchymosis, swelling about 4cm below gluteal crease, ROM of right hip limited due to pain - Neurological Exam Neurological exam: Alert, CN II-XII Intact, Oriented x3 Results - Vital Signs Recent Vital Signs: Last Vital Signs Temp 98.4 F 01/13/17 13:15 Pulse 128 H 01/13/17 13:15 Resp 18 01/13/17 13:15 BP 107/63 01/13/17 13:15 Pulse Ox 98 01/13/17 13:05 - Labs Result Diagrams: 01/13/17 11:25 01/13/17 11:25 Assessment & Plan - Assessment and Plan (Free Text) Assessment: 51 y/o male with history of alcohol abuse, seizures and cirrhosis of the liver being admitted for right thigh hematoma to monitor cbc for active bleeding. Plan: 1. Right Thigh Hematoma Pt not on any blood thinners Ct results reviewed, if area of hematoma or thigh itself is comparably larger than examined previously consider MRI of lower extremity H/H being monitor for possible transfusion: timed cbc for 6pm, 12midnight and 6am (01/14/17) ordered, f/u surgery consulted, recommendations appreciated pain management as ordered 2. History of seizures, last episode 2 days ago restarted on keppra monitor 3. Alcohol Abuse CIWA score of a 2, alcohol level was a 11 no indication for withdraw medications at this time monitor for withdraw 4. Diet Regular 5. DVT prophylaxis SCDs, no anticoagulation
[2017-01-13] MEDS ORDERED: Sodium Chloride 0.9% 1,000 ML IV SCH (15:45)
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
[2017-01-13 19:38] LABS: HEMOGLOBIN 7.1 g/dL (12.0-18.0); MEAN CELL VOLUME 98.3 fl (80.0-94.0); MEAN CORPUSCULAR HEMOGLOBIN 33.5 pg (27.0-31.0); MEAN CORPUSCULAR HGB CONC 34.1 g/dL (33.0-37.0); RBC 2.12 Mil/uL (4.40-5.90); RED CELL DISTRIBUTION WIDTH 16.4 % (11.5-14.5); WHITE BLOOD COUNT 4.6 K/uL (4.8-10.8)
[2017-01-13] MEDS: Morphine 4 MG/ML VIAL IVP PRN (21:50)
[2017-01-14] MEDS: Morphine 4 MG/ML VIAL IVP PRN ×4 (04:21→22:19)
[2017-01-14 05:51] LABS: HEMOGLOBIN 7.9 g/dL (12.0-18.0); MEAN CELL VOLUME 73.7 fl (80.0-94.0); MEAN CORPUSCULAR HEMOGLOBIN 21.4 pg (27.0-31.0); RBC 3.67 Mil/uL (4.40-5.90); RED CELL DISTRIBUTION WIDTH 17.6 % (11.5-14.5)
--- NOTE | 2017-01-14 09:46 | CP.PCM.PN ---
Subjective - Date & Time of Evaluation Date of Evaluation: 01/14/17 Time of Evaluation: 07:00 - Subjective Subjective: Pt was seen and examined at bedside, appeared in no acute distress, does not seem to be withdrawing from alcohol. States that he still has pain in the leg from the hip to the knee. Overnight, pt received 1U PRBC due to hemoglobin drop , second unit to be started shortly after pt was seen. Pt does not report worsening of the bruise/hematoma. Bruise was observed to be marginally improving , but swelling of R thigh is still present as compared to left. He denies any hx of bleeding disorders in himself or any relatives, that he is aware of. Denies taking any blood thinners or herbal supplements. Denied shortness of breath, chest pain, abdominal pain, issues toileting. CIWA score 1. Objective - Vital Signs/Intake and Output Vital Signs (last 24 hours): Temp Pulse Resp BP Pulse Ox 98.3 F 99 H 18 132/78 97 01/14/17 08:20 01/14/17 08:20 01/14/17 08:20 01/14/17 08:20 01/14/17 08:20 - Medications Medications: Current Medications Levetiracetam (Keppra) 500 mg PO BID JANNIE Last Admin: 01/14/17 08:10 Dose: 500 mg Morphine Sulfate (Morphine) 2 mg IVP Q6 PRN PRN Reason: Pain, severe (8-10) Last Admin: 01/14/17 04:21 Dose: 2 mg Tramadol HCl (Ultram) 100 mg PO Q6 PRN PRN Reason: Pain, moderate (4-7) Last Admin: 01/14/17 07:54 Dose: 100 mg - Labs Labs: 01/14/17 05:05 PT 22.8 Seconds (9.8-13.1) H 01/13/17 11:25 INR 2.0 (0.9-1.2) H 01/13/17 11:25 APTT 42.0 Seconds (25.6-37.1) H 01/13/17 11:25 - Constitutional Appears: No Acute Distress - Head Exam Head Exam: ATRAUMATIC - Eye Exam Eye Exam: EOMI Additional comments: mild scleral icterus - ENT Exam ENT Exam: Mucous Membranes Moist - Respiratory Exam Respiratory Exam: Clear to Ausculation Bilateral, NORMAL BREATHING PATTERN - Cardiovascular Exam Cardiovascular Exam: REGULAR RHYTHM, +S1, +S2 - GI/Abdominal Exam GI & Abdominal Exam: Normal Bowel Sounds - Extremities Exam Extremities Exam: absent: Calf Tenderness Additional comments: R lateral and posterior thigh hematoma RLE swollen as compared to L from groin to knee - Neurological Exam Neurological Exam: Alert, Awake, Oriented x3 - Psychiatric Exam Psychiatric exam: Normal Mood - Skin Skin Exam: Dry, Warm Assessment and Plan - Assessment and Plan (Free Text) Assessment: 51 yo M with PMH alcohol abuse, seizures and liver cirrhosis, admitted for right thigh hematoma, being monitored for active bleeding. Pt's hemoglobin dropped from 8.4 at admission (01/13/17, yesterday) afternoon to 7.1 the same evening, and he received 1U PRBC overnight, after which hemoglobin went up to 7.9. Second unit of PRBC given this morning. Plan: 1) Right Thigh Hematoma -CT on admission: No fracture. Infiltration and swelling of anterior musculature -Consider MRI if hematoma worsens -Surgery consult: suggested ortho consult -Spoke to ortho Dr. Richard, who recommended IR consult, gram stain and culture of potentially obtained fluid, MRI w/ contrast -IR consult: Dr. Beck recommended CT angio prior to proceeding -f/u CT angio -Pain management: tramadol 100mg PO Q6 PRN -Pt states he is not on blood thinner medications, nor does he take any herbal supplements 2) Anemia, unspecified -Hgb was 8.4 on admission yesterday afternoon, dropped to 7.1 yesterday evening. Pt received 1U PRBC overnight, repeat Hgb in the morning was 7.9. Pt received second unit PRBC this morning -CBC at 6 pm -Will continue to monitor H/H via timed cbc 3) History of seizures, last episode 2 days prior to admission -Continue home meds Keppra -Monitor for seizures 4) Alcohol Abuse -CIWA score 1 -Alcohol level was 11 at admission -Monitor for withdrawal 5) DVT prophylaxis SCDs, no anticoagulation
--- NOTE | 2017-01-14 12:40 | CP.PCM.PN ---
<Alyx Weir - Last Filed: 01/14/17 17:17> Subjective - Date & Time of Evaluation Date of Evaluation: 01/14/17 Time of Evaluation: 08:00 - Subjective Subjective: GENERAL SURGERY PROGRESS NOTE FOR DR. BARNES Patient seen and examined at bedside. He is currently being transfused. He received 1 unit overnight and 1 unit PRBC this AM. He reports pain in his right thigh that is the same as yesterday. He is requesting pain medication. Objective - Vital Signs/Intake and Output Vital Signs (last 24 hours): Temp Pulse Resp BP Pulse Ox 98.4 F 98 H 18 143/77 97 01/14/17 11:00 01/14/17 11:00 01/14/17 11:00 01/14/17 11:00 01/14/17 08:20 - Medications Medications: Current Medications Levetiracetam (Keppra) 500 mg PO BID JANNIE Last Admin: 01/14/17 08:10 Dose: 500 mg Morphine Sulfate (Morphine) 2 mg IVP Q6 PRN PRN Reason: Pain, severe (8-10) Last Admin: 01/14/17 10:52 Dose: 2 mg Tramadol HCl (Ultram) 100 mg PO Q6 PRN PRN Reason: Pain, moderate (4-7) Last Admin: 01/14/17 07:54 Dose: 100 mg - Labs Labs: 01/14/17 05:05 PT 22.8 Seconds (9.8-13.1) H 01/13/17 11:25 INR 2.0 (0.9-1.2) H 01/13/17 11:25 APTT 42.0 Seconds (25.6-37.1) H 01/13/17 11:25 - Constitutional Appears: Non-toxic, No Acute Distress - Head Exam Head Exam: ATRAUMATIC, NORMAL INSPECTION - Eye Exam Eye Exam: Scleral icterus - Respiratory Exam Respiratory Exam: NORMAL BREATHING PATTERN. absent: Respiratory Distress - Cardiovascular Exam Cardiovascular Exam: +S1, +S2 - Extremities Exam Additional comments: Right lateral and posterior thigh hematoma, tender Right thigh edematous, non fluctuant + DP and PT palpable pulses on right foot - Neurological Exam Neurological Exam: Alert, Awake - Psychiatric Exam Psychiatric exam: Normal Affect, Normal Mood Assessment and Plan - Assessment and Plan (Free Text) Assessment: 51yo M with Right anterior thigh ecchymosis with swelling, rule out hematoma - Hgb 7.1 after 1 unit PRBC (2nd unit currently being transfused) - WBC increased to 21.0 from 4.6 yesterday - Will repeat CMP today and check CK - Palpable DP and PT pulses - Ortho and IR consulted - Will continue to monitor H&H - Transfuse as needed - Discussed plan with Dr. Molly Weir PGY-3 <Robert Barnes - Last Filed: 01/14/17 17:43> Subjective - Subjective Subjective: Patient was seen and examined at the bedside. Agree with resident's note above. Objective - Vital Signs/Intake and Output Vital Signs (last 24 hours): Temp Pulse Resp BP Pulse Ox 98.1 F 90 20 109/70 96 01/14/17 16:23 01/14/17 16:23 01/14/17 16:23 01/14/17 16:23 01/14/17 16:23 - Medications Medications: Current Medications Lactated Ringer's (Lactated Ringer's) 1,000 mls @ 75 mls/hr IV .[id number] [facility]ANN[facility] Levetiracetam (Keppra) 500 mg PO BID JANNIE Last Admin: 01/14/17 16:17 Dose: 500 mg Morphine Sulfate (Morphine) 2 mg IVP Q6 PRN PRN Reason: Pain, severe (8-10) Last Admin: 01/14/17 16:17 Dose: 2 mg Tramadol HCl (Ultram) 100 mg PO Q6 PRN PRN Reason: Pain, moderate (4-7) Last Admin: 01/14/17 14:02 Dose: 100 mg - Labs Labs: 01/14/17 16:46 01/14/17 14:39 PT 22.8 Seconds (9.8-13.1) H 01/13/17 11:25 INR 2.0 (0.9-1.2) H 01/13/17 11:25 APTT 42.0 Seconds (25.6-37.1) H 01/13/17 11:25 Assessment and Plan - Assessment and Plan (Free Text) Plan: - Pain control - Continue diet - Monitor Hb/Hct - No general surgery intervention at present time - Continue care as per medical team - Will follow
[2017-01-14] MEDS ORDERED: Iodixanol 320 MG/ML 100 ML BOTTLE IV ONE (13:03)
[2017-01-14] MEDS ORDERED: Sodium Chloride 0.9% 50 ML IV ONE (13:04)
--- NOTE | 2017-01-14 14:46 | PCM.IRP ---
History of Present Illness - History of Present Illness History of Present Illness: Pt with large right thigh hematoma. CTA reviewed. There is no active bleeding and also no drainable collection. There is no role for IR intervention at this point. Objective - Vital Signs/Intake and Output Vital Signs (last 24 hours): Vital Signs - 24 hr 01/13/17 01/13/17 01/13/17 17:30 17:46 23:35 Temperature 98.4 F 98.5 F Pulse Rate 87 92 H Respiratory 17 17 16 Rate Blood Pressure 129/74 122/68 O2 Sat by Pulse 98 97 Oximetry 01/14/17 01/14/17 01/14/17 03:00 07:31 08:20 Temperature 98.1 F 98.2 F 98.3 F Pulse Rate 90 103 H 99 H Respiratory 16 20 18 Rate Blood Pressure 122/69 145/79 132/78 O2 Sat by Pulse 98 99 97 Oximetry 01/14/17 11:00 Temperature 98.4 F Pulse Rate 98 H Respiratory 18 Rate Blood Pressure 143/77 O2 Sat by Pulse Oximetry - Medications Medications: Current Medications Levetiracetam (Keppra) 500 mg PO BID JANNIE Last Admin: 01/14/17 08:10 Dose: 500 mg Morphine Sulfate (Morphine) 2 mg IVP Q6 PRN PRN Reason: Pain, severe (8-10) Last Admin: 01/14/17 10:52 Dose: 2 mg Tramadol HCl (Ultram) 100 mg PO Q6 PRN PRN Reason: Pain, moderate (4-7) Last Admin: 01/14/17 14:02 Dose: 100 mg - Labs Labs (last 24 hours): Laboratory Results - last 24 hr 01/13/17 01/13/17 01/14/17 19:27 21:13 05:05 WBC 4.6 L 21.0 H D RBC 2.12 L 3.67 L Hgb 7.1 L 7.9 L Hct 20.8 L 27.1 L MCV 98.3 H 73.7 L D MCH 33.5 H 21.4 L MCHC 34.1 29.0 L RDW 16.4 H 17.6 H Plt Count 52 L 238 D Blood Type O POSITIVE Antibody Screen Negative Crossmatch See Detail BBK History Checked Patient has bt
--- NOTE | 2017-01-14 14:46 | CT ---
PROCEDURE: CT Angiography Abdomen, Pelvis and Lower Extremity with Contrast HISTORY: Right thigh hematoma COMPARISON: None. TECHNIQUE: Technique: CT angiography of the abdomen, pelvis and bilateral lower extremities performed in the arterial phase of enhancement. Coronal and sagittal reformats, and well as rotating MIP images of the vessels generated at the workstation. Intravenous contrast dose: 100 milliliters Visipaque 320 Radiation dose: Total exam DLP = 1354.60 MGy-cm. This CT exam was performed using one or more of the following dose reduction techniques: Automated exposure control, adjustment of the mA and/or kV according to patient size, and/or use of iterative reconstruction technique. FINDINGS: CT ANGIOGRAPHY: ABDOMINAL AORTA:: The abdominal was unremarkable. MAJOR AORTIC BRANCHES: Celiac [place]: Unremarkable. Superior mesenteric artery: Unremarkable. Inferior mesenteric artery: Unremarkable. Renal arteries: Unremarkable. PELVIC ARTERIES: Right Common Iliac: Unremarkable. Right External Iliac: Unremarkable. Right Internal Iliac: Unremarkable. Left Common Iliac: Unremarkable. Left External Iliac: Unremarkable. Left Internal Iliac: Unremarkable. RIGHT LOWER EXTREMITY ARTERIES: Right Common Femoral: Unremarkable. Right Superficial Femoral: Mid SFA is being compressed by the large hematoma of the quadriceps muscle. Right Profunda Femoris: Unremarkable. Right Popliteal:Unremarkable. Right Anterior Tibial: Unremarkable. Right Tibioperoneal Trunk: Unremarkable. Right Posterior Tibial: Unremarkable. Right Peroneal: Unremarkable. Right dorsalis pedis : Unremarkable. LEFT LOWER EXTREMITY ARTERIES: Left Common Femoral: Unremarkable. Left Superficial Femoral: Unremarkable. Left Profunda Femoris: Unremarkable. Left Popliteal: Unremarkable. Left Anterior Tibial: Unremarkable. Left Tibioperoneal Trunk: Unremarkable. Left Posterior Tibial: Unremarkable. Left Peronea: Unremarkable. Left Dorsalis pedis: Unremarkable. NON-ANGIOGRAPHIC ASPECT OF THE EXAM: LOWER THORAX: Unremarkable. LIVER: Previous TIPS. Liver otherwise unremarkable GALLBLADDER AND BILE DUCTS: Unremarkable. PANCREAS: Unremarkable. No gross lesion or ductal dilatation. SPLEEN: Unremarkable. ADRENALS: Unremarkable. No mass. KIDNEYS AND URETERS: Unremarkable. No hydronephrosis. No solid mass. STOMACH AND BOWEL: Unremarkable. No obstruction. No gross mural thickening. APPENDIX: Normal appendix. PERITONEUM: Unremarkable. No free fluid. No free air. LYMPH NODES: Unremarkable. No enlarged lymph nodes. BLADDER: Unremarkable. REPRODUCTIVE: Unremarkable. BONES: No acute fracture. OTHER FINDINGS: Large hematoma involving the right quadriceps muscle with edema in the surrounding soft tissue. Hematoma involves the vastus lateralis and intermedius muscles. There is also a hematoma of the sartorius and rectus femoris distally. There is no evidence of active bleed. There is no drainable collection. IMPRESSION: Large hematoma involving the right quadriceps muscle with edema in the surrounding soft tissue. Hematoma involves the vastus lateralis and intermedius muscles. There is also a hematoma of the sartorius and rectus femoris distally. There is no evidence of active bleed. There is no drainable collection.
[2017-01-14 14:55] LABS: ALB/GLOB RATIO 0.7 (1.0-2.1); ALBUMIN 2.8 g/dL (3.5-5.0); ALT/SGPT 43 U/L (21-72); AST/SGOT 89 U/L (17-59); BLOOD UREA NITROGEN 16 mg/dl (9-20); GFR AFRICAN-AMERICAN > 60; GFR NON-AFRICAN AMERICAN > 60
[2017-01-14 16:52] LABS: HEMOGLOBIN 8.1 g/dL (12.0-18.0); MEAN CELL VOLUME 93.9 fl (80.0-94.0); MEAN CORPUSCULAR HEMOGLOBIN 31.6 pg (27.0-31.0); MEAN CORPUSCULAR HGB CONC 33.7 g/dL (33.0-37.0); RBC 2.55 Mil/uL (4.40-5.90); RED CELL DISTRIBUTION WIDTH 18.5 % (11.5-14.5); WHITE BLOOD COUNT 6.9 K/uL (4.8-10.8)
--- NOTE | 2017-01-14 17:19 | CP.PCM.PN ---
Subjective - Date & Time of Evaluation Date of Evaluation: 01/14/17 Time of Evaluation: 14:00 - Subjective Subjective: 51 yo male c/o right thigh pain to knee x 3 day's with increasing difficulty ambulating,pt fell asleep on affected side with multiple coins in his pocket, awoke with an elevated bruise to right lateral thigh worsening and expanding daily,localized numbness secondary to swelling,came to ER yesterday for further eval,pt with long standing hx of Etoh abuse,liver cirrhosis x 3 years and coagulapathy,INR 2.0, without AC use,imaging showing a large hematoma in the quadricep muscles extending into soft tissue without active bleeding,no fx,pt s/ p blood transfusion for Hct 7.1. Objective - Vital Signs/Intake and Output Vital Signs (last 24 hours): Temp Pulse Resp BP Pulse Ox 98.1 F 90 20 109/70 96 01/14/17 16:23 01/14/17 16:23 01/14/17 16:23 01/14/17 16:23 01/14/17 16:23 - Medications Medications: Current Medications Lactated Ringer's (Lactated Ringer's) 1,000 mls @ 75 mls/hr IV .[id number] [facility] Levetiracetam (Keppra) 500 mg PO BID [facility] Last Admin: 01/14/17 16:17 Dose: 500 mg Morphine Sulfate (Morphine) 2 mg IVP Q6 PRN PRN Reason: Pain, severe (8-10) Last Admin: 01/14/17 16:17 Dose: 2 mg Tramadol HCl (Ultram) 100 mg PO Q6 PRN PRN Reason: Pain, moderate (4-7) Last Admin: 01/14/17 14:02 Dose: 100 mg - Labs Labs: 01/14/17 05:05 01/14/17 14:39 PT 22.8 Seconds (9.8-13.1) H 01/13/17 11:25 INR 2.0 (0.9-1.2) H 01/13/17 11:25 APTT 42.0 Seconds (25.6-37.1) H 01/13/17 11:25 - Constitutional Appears: Well, Non-toxic, No Acute Distress - Head Exam Head Exam: ATRAUMATIC, NORMAL INSPECTION, NORMOCEPHALIC - Eye Exam Eye Exam: EOMI, Normal appearance, PERRL - ENT Exam ENT Exam: Mucous Membranes Moist - Neck Exam Neck Exam: Normal Inspection - Respiratory Exam Respiratory Exam: Clear to Ausculation Bilateral - Cardiovascular Exam Cardiovascular Exam: REGULAR RHYTHM - GI/Abdominal Exam GI & Abdominal Exam: Soft - Extremities Exam Additional comments: + ST edema and tenderness to palpation to right thigh from proximal to distal femur,proximal contusion,compartments full but soft,moves extremity on command, + 2 pulses throughout,neg ambrose's,+ sensation,ambulating with steady gait - Back Exam Back Exam: NORMAL INSPECTION - Neurological Exam Neurological Exam: Alert, Oriented x3 - Psychiatric Exam Psychiatric exam: Normal Affect, Normal Mood - Skin Skin Exam: Dry, Intact Assessment and Plan - Assessment and Plan (Free Text) Assessment: 51 yo male s/p blunt trauma to RLE,Cirrhosis with Hepatic Coagulapathy,Large Hematoma to Quadricep Muscles with associated Anemia reguiring transfusion, without current signs of Compartment Syndrome,Hemodynamically Stable Plan: ice packs to RLE with elevation,NV checks qshift and monitor for signs of compartment syndrome,am CBC and repeat coag's,all d/w Dr. Franko Chung,attd reviewed images,will see pt in the am,all information d/w pt as well,expressed understanding,NPO at [place] per attd in case intervention required.
[2017-01-15] MEDS: Morphine 4 MG/ML VIAL IVP PRN ×2 (05:37→12:00)
[2017-01-15] MEDS: Lactated Ringer's 1,000 ML IV SCH ×2 (06:46→13:35)
[2017-01-15 07:06] LABS: BASO # 0.1 K/uL (0.0-0.2); BASO % 0.9 % (0.0-2.0); EOS # 0.8 K/uL (0.0-0.7); EOS % 10.3 % (0.0-4.0); HEMOGLOBIN 7.2 g/dL (12.0-18.0); LYMPH # 1.6 K/uL (1.0-4.3); LYMPH % 22.2 % (20.0-40.0); MEAN CELL VOLUME 93.5 fl (80.0-94.0); MEAN CORPUSCULAR HGB CONC 34.2 g/dL (33.0-37.0); MEAN PLATELET VOLUME 8.1 fl (7.2-11.7); MONO % 14.1 % (0.0-10.0); NEUT # 3.9 K/uL (1.8-7.0); NEUT % 52.5 % (50.0-75.0); RBC 2.26 Mil/uL (4.40-5.90); RED CELL DISTRIBUTION WIDTH 18.6 % (11.5-14.5); WHITE BLOOD COUNT 7.3 K/uL (4.8-10.8)
[2017-01-15 07:13] LABS: ALB/GLOB RATIO 0.7 (1.0-2.1); ALBUMIN 2.7 g/dL (3.5-5.0); ALT/SGPT 43 U/L (21-72); AMYLASE 81 U/L (30-110); AST/SGOT 88 U/L (17-59); BLOOD UREA NITROGEN 18 mg/dl (9-20); CALCIUM 7.9 mg/dL (8.4-10.2); GFR AFRICAN-AMERICAN > 60; GFR NON-AFRICAN AMERICAN > 60; LIPASE 91 U/L (23-300)
[2017-01-15 07:21] LABS: INR 2.2 (0.9-1.2); PROTHROMBIN TIME 25.3 Seconds (9.8-13.1)
--- NOTE | 2017-01-15 08:05 | CP.PCM.PN ---
<GunnerBernard - Last Filed: 01/15/17 08:02> Subjective - Date & Time of Evaluation Date of Evaluation: 01/15/17 Time of Evaluation: 08:02 - Subjective Subjective: Surgery for Dr. Miller Pt s&e. Denies F/C/N/V/D/CP/SOB/dizziness. pain improved. ROM improved. Objective - Vital Signs/Intake and Output Vital Signs (last 24 hours): Temp Pulse Resp BP Pulse Ox 98 F 114 H 20 138/77 95 01/15/17 07:33 01/15/17 07:33 01/15/17 07:33 01/15/17 07:33 01/15/17 07:33 - Medications Medications: Current Medications Lactated Ringer's (Lactated Ringer's) 1,000 mls @ 75 mls/hr IV .[id number] [facility] Last Admin: 01/15/17 06:46 Dose: 75 mls/hr Levetiracetam (Keppra) 500 mg PO BID [facility] Last Admin: 01/14/17 16:17 Dose: 500 mg Morphine Sulfate (Morphine) 2 mg IVP Q6 PRN PRN Reason: Pain, severe (8-10) Last Admin: 01/15/17 05:37 Dose: 2 mg Tramadol HCl (Ultram) 100 mg PO Q6 PRN PRN Reason: Pain, moderate (4-7) Last Admin: 01/15/17 02:16 Dose: 100 mg - Labs Labs: 01/15/17 06:15 01/15/17 06:15 PT 25.3 Seconds (9.8-13.1) H 01/15/17 06:15 INR 2.2 (0.9-1.2) H 01/15/17 06:15 APTT 42.0 Seconds (25.6-37.1) H 01/13/17 11:25 - Constitutional Appears: No Acute Distress - Head Exam Head Exam: ATRAUMATIC, NORMAL INSPECTION, NORMOCEPHALIC - Eye Exam Eye Exam: EOMI, Normal appearance, PERRL Pupil Exam: NORMAL ACCOMODATION, PERRL - ENT Exam ENT Exam: Mucous Membranes Moist, Normal Exam - Neck Exam Neck Exam: Full ROM, Normal Inspection. absent: Lymphadenopathy - Respiratory Exam Respiratory Exam: Clear to Ausculation Bilateral - Cardiovascular Exam Cardiovascular Exam: REGULAR RHYTHM - GI/Abdominal Exam GI & Abdominal Exam: Soft. absent: Distended, Firm, Guarding, Rigid, Tenderness - Extremities Exam Extremities Exam: Joint Swelling, Normal Capillary Refill, Pedal Edema, Tenderness. absent: Calf Tenderness, Full ROM, Normal Inspection Additional comments: R anterior /lateral thigh has large ecchymosis. R LE swallen. ROM improving. TTP. Pulses intact. warm. no paresthesia - Back Exam Back Exam: NORMAL INSPECTION - Neurological Exam Neurological Exam: Alert, Awake, CN II-XII Intact, Oriented x3 - Psychiatric Exam Psychiatric exam: Normal Affect, Normal Mood - Skin Skin Exam: Dry, Intact, Normal Color, Warm Assessment and Plan - Assessment and Plan (Free Text) Assessment: R thigh ecchymosis /swelling 2/2 injury : improving Hgb 7.2 s/p transfusion - Pain control - R leg elevation and ice pack - Monitor Hb/Hct - No general surgery intervention at present time - Continue care as per medical team - Will follow Will DW Dr. Miller <Robert Barnes - Last Filed: 01/15/17 11:47> Subjective - Date & Time of Evaluation Time of Evaluation: 11:15 - Subjective Subjective: Patient was seen and examined at the bedside. Agree with resident's note above Objective - Vital Signs/Intake and Output Vital Signs (last 24 hours): Temp Pulse Resp BP Pulse Ox 98 F 114 H 20 138/77 95 01/15/17 07:33 01/15/17 07:33 01/15/17 07:33 01/15/17 07:33 01/15/17 07:33 - Medications Medications: Current Medications Lactated Ringer's (Lactated Ringer's) 1,000 mls @ 75 mls/hr IV .[id number] [facility] Last Admin: 01/15/17 06:46 Dose: 75 mls/hr Levetiracetam (Keppra) 500 mg PO BID [facility] Last Admin: 01/15/17 08:44 Dose: 500 mg Morphine Sulfate (Morphine) 2 mg IVP Q6 PRN PRN Reason: Pain, severe (8-10) Last Admin: 01/15/17 05:37 Dose: 2 mg Tramadol HCl (Ultram) 100 mg PO Q6 PRN PRN Reason: Pain, moderate (4-7) Last Admin: 01/15/17 08:43 Dose: 100 mg - Labs Labs: 01/15/17 09:10 01/15/17 06:15 PT 25.3 Seconds (9.8-13.1) H 01/15/17 06:15 INR 2.2 (0.9-1.2) H 01/15/17 06:15 APTT 42.0 Seconds (25.6-37.1) H 01/13/17 11:25
--- NOTE | 2017-01-15 09:08 | CP.PCM.PN ---
Subjective - Date & Time of Evaluation Date of Evaluation: 01/15/17 Time of Evaluation: 07:20 - Subjective Subjective: Pt was seen and examined at bedside, appeared in no acute distress, does not seem to be withdrawing from alcohol. States that pain in the R leg from the hip to the knee has not changed. The bruise appears to be fading in color and appears to have moved more anteriorly, but swelling of the R thigh is persistent. No parasthesias, no pallor, no paralysis, no poikilothermia. Denied shortness of breath, chest pain, abdominal pain, issues toileting. CIWA score 1. Pt was seen and eval by [place], who stated no intervention at this time; IR stated that there is no indication for IR intervention at this time. Ortho saw pt today, stated no intervention. Pt is s/p 2 U PRBC, on AM labs Hgb was 7.1. FIOBT was collected and was positive , GI consult was placed. On repeat lab this AM (without intervention) Hgb was 8.1. Nurse's notes regarding communication with Dr. Mack reviewed and appreciated, pt to get 2U FFP later today, with repeat CBC. On repeat CBC, Hgb was 5.8. Spoke with Dr. Mack, who recommended repeat CBC and to have PRBC ready to transfuse if still low. Objective - Vital Signs/Intake and Output Vital Signs (last 24 hours): Temp Pulse Resp BP Pulse Ox 98 F 114 H 20 138/77 95 01/15/17 07:33 01/15/17 07:33 01/15/17 07:33 01/15/17 07:33 01/15/17 07:33 - Medications Medications: Current Medications Lactated Ringer's (Lactated Ringer's) 1,000 mls @ 75 mls/hr IV .[id number] [facility] Last Admin: 01/15/17 06:46 Dose: 75 mls/hr Levetiracetam (Keppra) 500 mg PO BID [facility] Last Admin: 01/15/17 08:44 Dose: 500 mg Morphine Sulfate (Morphine) 2 mg IVP Q6 PRN PRN Reason: Pain, severe (8-10) Last Admin: 01/15/17 05:37 Dose: 2 mg Tramadol HCl (Ultram) 100 mg PO Q6 PRN PRN Reason: Pain, moderate (4-7) Last Admin: 01/15/17 08:43 Dose: 100 mg - Labs Labs: 01/15/17 06:15 01/15/17 06:15 PT 25.3 Seconds (9.8-13.1) H 01/15/17 06:15 INR 2.2 (0.9-1.2) H 01/15/17 06:15 APTT 42.0 Seconds (25.6-37.1) H 01/13/17 11:25 - Constitutional Appears: Non-toxic - Head Exam Head Exam: ATRAUMATIC - Eye Exam Eye Exam: EOMI Additional comments: mild scleral icterus - ENT Exam ENT Exam: Mucous Membranes Moist - Respiratory Exam Respiratory Exam: Clear to Ausculation Bilateral, NORMAL BREATHING PATTERN - Cardiovascular Exam Cardiovascular Exam: REGULAR RHYTHM, +S1, +S2 - GI/Abdominal Exam GI & Abdominal Exam: Normal Bowel Sounds - Extremities Exam Extremities Exam: absent: Calf Tenderness Additional comments: R thigh hematoma, primarily lateral RLE swollen as compared to L from hip to knee no pallor, parasthesias, pulselessness, poikilothermia - Neurological Exam Neurological Exam: Alert, Awake, Oriented x3 - Skin Skin Exam: Dry, Warm Assessment and Plan - Assessment and Plan (Free Text) Assessment: 51 yo M with PMH alcohol abuse, seizures and liver cirrhosis, admitted for right thigh hematoma, being monitored for active bleeding and observed for development of compartment syndrome. Plan: 1) Right Thigh Hematoma -CT on admission: No fracture. Infiltration and swelling of anterior musculature -MRI ordered -Surgery consult: suggested ortho consult -Spoke to ortho Dr. Richard, who originally recommended IR consult; ortho saw pt today and stated no intervention -IR consult: Dr. Beck did CT angio, stated there is no role for IR intervention -Pain management: tramadol 100mg PO Q6 PRN -Monitor for compartment syndrome 2) Anemia, unspecified -s/p 2U PRBC, Hgb was 8.1. This morning was 7.2, but on repeat within few hours , 8.1. -repeat CBC later in afternoon was 5.8 -spoke to Dr. Mack (heme/onc), who recommended repeat CBC, to make sure it's a peripheral stick, and to have PRBC ready -fecal occult stool positive -GI consult placed 3) History of seizures, last episode 2 days prior to admission -Continue home meds Keppra -Monitor for seizures 4) Alcohol Abuse -CIWA score 1 -Alcohol level was 11 at admission -Monitor for withdrawal 5) DVT prophylaxis SCDs, no anticoagulation
[2017-01-15 09:45] LABS: HEMOGLOBIN 8.1 g/dL (12.0-18.0); MEAN CELL VOLUME 94.5 fl (80.0-94.0); MEAN CORPUSCULAR HGB CONC 33.8 g/dL (33.0-37.0); RBC 2.52 Mil/uL (4.40-5.90); RED CELL DISTRIBUTION WIDTH 18.9 % (11.5-14.5)
[2017-01-15 13:00] LABS: URINE BACTERIA RARE (<OCC); URINE BILIRUBIN SMALL (NEGATIVE); URINE BLOOD NEGATIVE (NEGATIVE); URINE CALCIUM OXALATE CRYSTALS OCC /hpf (<OCC); URINE CLARITY CLOUDY (Clear); URINE COLOR AMBER (YELLOW); URINE GLUCOSE (UA) NEG (Normal); URINE LEUKOCYTE ESTERASE NEG Leu/uL (Negative); URINE NITRATE NEGATIVE (NEGATIVE); URINE PROTEIN 30 mg/dL (NEGATIVE)
[2017-01-15 16:00] LABS: BASO % 0.8 % (0.0-2.0); EOS # 0.5 K/uL (0.0-0.7); EOS % 9.4 % (0.0-4.0); LYMPH # 1.3 K/uL (1.0-4.3); LYMPH % 22.7 % (20.0-40.0); MEAN CORPUSCULAR HEMOGLOBIN 32.1 pg (27.0-31.0); MEAN CORPUSCULAR HGB CONC 34.2 g/dL (33.0-37.0); MEAN PLATELET VOLUME 7.8 fl (7.2-11.7); MONO # 0.9 K/uL (0.0-0.8); MONO % 15.2 % (0.0-10.0); NEUT # 2.9 K/uL (1.8-7.0); NEUT % 51.9 % (50.0-75.0); NRBC % 0.1 % (0.0-0.0); RBC 1.81 Mil/uL (4.40-5.90); RED CELL DISTRIBUTION WIDTH 18.4 % (11.5-14.5); WHITE BLOOD COUNT 5.6 K/uL (4.8-10.8)
[2017-01-15] MEDS ORDERED: Morphine 4 MG/ML VIAL IVP PRN (16:01)
[2017-01-15 16:03] LABS: HEMOGLOBIN 5.8 g/dL (12.0-18.0)
[2017-01-15 17:21] LABS: BASO % 0.6 % (0.0-2.0); EOS # 0.5 K/uL (0.0-0.7); EOS % 8.4 % (0.0-4.0); LYMPH # 1.3 K/uL (1.0-4.3); LYMPH % 23.3 % (20.0-40.0); MEAN CORPUSCULAR HEMOGLOBIN 32.3 pg (27.0-31.0); MEAN CORPUSCULAR HGB CONC 34.4 g/dL (33.0-37.0); MEAN PLATELET VOLUME 8.1 fl (7.2-11.7); MONO # 0.9 K/uL (0.0-0.8); MONO % 16.4 % (0.0-10.0); NEUT # 2.8 K/uL (1.8-7.0); NEUT % 51.3 % (50.0-75.0); NRBC % 0.4 % (0.0-0.0); RBC 1.79 Mil/uL (4.40-5.90); RED CELL DISTRIBUTION WIDTH 18.9 % (11.5-14.5); WHITE BLOOD COUNT 5.5 K/uL (4.8-10.8)
[2017-01-15] MEDS ORDERED: Desmopressin 4 mcg/ml Inj (1 ml) IVP ONE (17:27)
[2017-01-15 17:33] LABS: HEMOGLOBIN 5.8 g/dL (12.0-18.0)
--- NOTE | 2017-01-15 17:50 | CP.PCM.CON ---
History of Present Illness - History of Present Illness History of Present Illness: 51 yo male with h/o alcohol abuse admitted with falling Hgb and fracture right femur. He had TIPS in 2014. Had CT in September and no ascites present. Also had recent upper endoscopy this year and no varices were present. Review of Systems - Constitutional Constitutional: absent: Chills - EENT Eyes: absent: Blurred Vision Nose/Mouth/Throat: absent: Epistaxis - Cardiovascular Cardiovascular: absent: Chest Pain - Respiratory Respiratory: absent: Cough - Gastrointestinal Gastrointestinal: absent: Abdominal Pain - Genitourinary Genitourinary: absent: Change in Urinary Stream Past Patient History - Infectious Disease Hx of Infectious Diseases: None - Tetanus Immunizations Tetanus Immunization: Unknown - Past Medical History & Family History Past Medical History?: Yes - Past Social History Smoking Status: Heavy Smoker > 10 Cigarettes Daily - CARDIAC Hx Cardiac Disorders: No - PULMONARY Hx Respiratory Disorders: No - NEUROLOGICAL Hx Neurological Disorder: Yes - HEENT Hx HEENT Problems: No - RENAL Hx Chronic Kidney Disease: No - ENDOCRINE/METABOLIC Hx Endocrine Disorders: No - HEMATOLOGICAL/ONCOLOGICAL Hx Blood Disorders: Yes - INTEGUMENTARY Hx Dermatological Problems: No - MUSCULOSKELETAL/RHEUMATOLOGICAL Hx Musculoskeletal Disorders: Yes - GASTROINTESTINAL Hx Gastritis: Yes Hx Pancreatitis: Yes (patient denies) - GENITOURINARY/GYNECOLOGICAL Hx Genitourinary Disorders: No - PSYCHIATRIC Hx Psychophysiologic Disorder: No - SURGICAL HISTORY Other/Comment: "Stomach cauterized"; TIPS (Liver Stent);. Endoscopy - ANESTHESIA Hx Anesthesia: Yes Hx Anesthesia Reactions: No Meds Allergies/Adverse Reactions: Allergies Allergy/AdvReac Type Severity Reaction Status Date / Time aspirin Allergy NAUSEA Verified 11/07/16 15:22 - Medications Medications: Current Medications Lactated Ringer's (Lactated Ringer's) 1,000 mls @ 75 mls/hr IV .[id number] [facility] Last Admin: 01/15/17 13:35 Dose: 75 mls/hr Desmopressin Acetate 21 mcg/ (Sodium Chloride) 55.25 mls @ 110.5 mls/hr IV ONCE ONE Stop: 01/15/17 18:44 Levetiracetam (Keppra) 500 mg PO BID [facility] Last Admin: 01/15/17 17:17 Dose: 500 mg Morphine Sulfate (Morphine) 2 mg IVP Q4 PRN PRN Reason: Pain, severe (8-10) Last Admin: 01/15/17 17:16 Dose: 2 mg Tramadol HCl (Ultram) 100 mg PO Q6 PRN PRN Reason: Pain, moderate (4-7) Last Admin: 01/15/17 15:06 Dose: 100 mg Physical Exam - Head Exam Head Exam: NORMAL INSPECTION - Eye Exam Eye Exam: EOMI Pupil Exam: PERRL - Neck Exam Neck exam: Positive for: Normal Inspection - Respiratory Exam Respiratory Exam: Clear to Auscultation Bilateral, NORMAL BREATHING PATTERN - Cardiovascular Exam Cardiovascular Exam: REGULAR RHYTHM, +S1, +S2 - GI/Abdominal Exam GI & Abdominal Exam: Firm, Normal Bowel Sounds Results - Vital Signs Recent Vital Signs: Last Vital Signs Temp 98.4 F 01/15/17 16:50 Pulse 99 H 01/15/17 16:50 Resp 20 01/15/17 16:50 BP 112/71 01/15/17 16:50 Pulse Ox 97 01/15/17 16:50 - Labs Result Diagrams: 01/15/17 17:16 01/15/17 06:15 Labs: Laboratory Results - last 24 hr 01/15/17 01/15/17 01/15/17 06:15 06:15 06:15 WBC 7.3 RBC 2.26 L Hgb 7.2 L Hct 21.1 L MCV 93.5 MCH 32.0 H MCHC 34.2 RDW 18.6 H Plt Count 65 L MPV 8.1 Neut % (Auto) 52.5 Lymph % (Auto) 22.2 [place] % (Auto) 14.1 H Eos % (Auto) 10.3 H Baso % (Auto) 0.9 Neut # 3.9 Lymph # 1.6 [place] # 1.0 H Eos # 0.8 H Baso # 0.1 PT 25.3 H INR 2.2 H Sodium Potassium Chloride Carbon Dioxide Anion Gap BUN Creatinine Est GFR ( Amer) Est GFR (Non-Af Amer) Random Glucose Calcium Total Bilirubin AST ALT Alkaline Phosphatase Ammonia 73 H Total Protein Albumin Globulin Albumin/Globulin Ratio Amylase Lipase Urine Color Urine Clarity Urine pH Ur Specific [place] Urine Protein Urine Glucose (UA) Urine Ketones Urine Blood Urine Nitrate Urine Bilirubin Urine Urobilinogen Ur Leukocyte Esterase Urine RBC (Auto) Urine Microscopic WBC Calcium Oxalate Crystal Urine Bacteria Stool Occult Blood 01/15/17 01/15/17 01/15/17 06:15 08:23 09:10 WBC 8.0 RBC 2.52 L Hgb 8.1 L Hct 23.8 L MCV 94.5 H MCH 32.0 H MCHC 33.8 RDW 18.9 H Plt Count 72 L MPV Neut % (Auto) Lymph % (Auto) [place] % (Auto) Eos % (Auto) Baso % (Auto) Neut # Lymph # [place] # Eos # Baso # PT INR Sodium 134 Potassium 3.9 Chloride 102 Carbon Dioxide 25 Anion Gap 10 BUN 18 Creatinine 0.7 L Est GFR ( Amer) > 60 Est GFR (Non-Af Amer) > 60 Random Glucose 97 Calcium 7.9 L Total Bilirubin 6.5 H AST 88 H ALT 43 Alkaline Phosphatase 176 H D Ammonia Total Protein 6.5 Albumin 2.7 L Globulin 3.7 Albumin/Globulin Ratio 0.7 L Amylase 81 Lipase 91 Urine Color Urine Clarity Urine pH Ur Specific [place] Urine Protein Urine Glucose (UA) Urine Ketones Urine Blood Urine Nitrate Urine Bilirubin Urine Urobilinogen Ur Leukocyte Esterase Urine RBC (Auto) Urine Microscopic WBC Calcium Oxalate Crystal Urine Bacteria Stool Occult Blood Positive H 01/15/17 01/15/17 01/15/17 12:43 15:57 17:16 WBC 5.6 5.5 RBC 1.81 L 1.79 L Hgb 5.8 L* D 5.8 L* Hct 17.0 L 16.8 L MCV 94.0 94.0 MCH 32.1 H 32.3 H MCHC 34.2 34.4 RDW 18.4 H 18.9 H Plt Count 55 L 53 L MPV 7.8 8.1 Neut % (Auto) 51.9 51.3 Lymph % (Auto) 22.7 23.3 [place] % (Auto) 15.2 H 16.4 H Eos % (Auto) 9.4 H 8.4 H Baso % (Auto) 0.8 0.6 Neut # 2.9 2.8 Lymph # 1.3 1.3 [place] # 0.9 H 0.9 H Eos # 0.5 0.5 Baso # 0.0 0.0 PT INR Sodium Potassium Chloride Carbon Dioxide Anion Gap BUN Creatinine Est GFR ( Amer) Est GFR (Non-Af Amer) Random Glucose Calcium Total Bilirubin AST ALT Alkaline Phosphatase Ammonia Total Protein Albumin Globulin Albumin/Globulin Ratio Amylase Lipase Urine Color [place] Urine Clarity Cloudy Urine pH 5.0 Ur Specific [place] 1.034 H Urine Protein 30 Urine Glucose (UA) Neg Urine Ketones Negative Urine Blood Negative Urine Nitrate Negative Urine Bilirubin Small Urine Urobilinogen 4.0 Ur Leukocyte Esterase Neg Urine RBC (Auto) 12 H Urine Microscopic WBC 5 Calcium Oxalate Crystal Occ H Urine Bacteria Rare Stool Occult Blood Assessment & Plan (1) Anemia Assessment and Plan: Patient with occult GI bleeding only unlikely to explain extent of Hgb fall. Will do CT abdomen and pelvis to rule out intraabdominal bleed. DDAVP 21 mcg IVPB. Status: Acute Priority: High
[2017-01-15] MEDS ORDERED: Gadodiamide 287 MG/ML VIAL (15ML) IV ONE (17:57)
--- NOTE | 2017-01-15 18:23 | CP.CCUPN ---
CCU Subjective - Physician Review Subjective (Free Text): Consultation for transfer to ICU: 51M with PMH chronic alcoholism, Cirrhosis, and seizures, on Keppra, admitted after a fall and sustaining a large hematoma over the lower R leg. Team requesting transfer to ICU for sudden drop in Hgb from 8.1 to 5.8 within a 6 hour period. No obvious source of bleeding and he still has intermittent R leg pain; but swelling / hematoma / ecchymosis unchanged. He recd 2 units FFP today only and did receive 2 units PRBCs on day of admission 2 days ago for admission HGb= 8.4. he has not been hypotensive nor in any distress. His last seizure was 2 days [employer]. He had residual ETOH level on the day of admission. Allergies: ASA ROS: as above, no other pertinent negs or positives on 10+ system review. Other PMSFH: All recent nursing and physician documentation reviewed and no new information noted relevant to current problems. MAJOR PROBLEMS: 1. Acute Anemia 2 Trauma to RLE 2. Coagulopathy 2 Alcoholic Liver Disease 3. Thrombocytopenia 2 Chronic Alcoholism / Hypersplenism 4. FOBT +; no prior h/o portal HTN or variceal disease PLAN: 1. MRI RLE anticipated now. If negative for any new significant increase in size of bleeding or found not to be the source of new anemia, would get CTAP to r/o occult retroperitoneal hemorrhage. 2. Would give more PRBCS now 2 units. 3. If platelets drop further, will need count supplementation as well. 4. Check repeat coags. Would give vitamin K as well. 5. Watch for the development of any compartment syndrome in R leg. 6. Watch for ETOH withdrawal symptoms. 7. Continue Keppra. 8. Start Thiamine and folic acid supplements. CCU Objective - Vital Signs / Intake & Output Vital Signs (Last 4 hours): Vital Signs Temp Pulse Resp BP Pulse Ox 01/15/17 16:50 98.4 F 99 H 20 112/71 97 - Physical Exam Head: Positive for: Normocephalic Pupils: Positive for: PERRL Extroacular Muscles: Positive for: EOMI Conjunctiva: Negative for: Injected, Icteric Pharnyx: Positive for: Normal. Negative for: ERYTHEMA, EXUDATE Neck: Negative for: JVD, Lymphadenopathy Respiratory/Chest: Positive for: Decreased Breath Sounds. Negative for: Wheezes , Rales Cardiovascular: Positive for: Regular Rate and Rhythm, Tachycardic Abdomen: Negative for: Tenderness, Distention, Normal Bowel Sounds Lower Extremity: Positive for: Edema, CALF TENDERNESS. Negative for: Cyanosis Neurological: Positive for: GCS=15, CN II-XII Intact, Motor Func Grossly Intact , Normal Sensory Function Skin: Positive for: Warm. Negative for: Rashes - Medications Active Medications: Active Medications Generic Name Dose Route Start Last Admin Trade Name Freq PRN Reason Stop Dose Admin Lactated Ringer's 1,000 mls @ 75 mls/hr 01/15/17 00:01 01/15/17 13:35 Lactated Ringer's IV 75 mls/hr .[id number] JANNIE Administration Desmopressin Acetate 21 mcg/ 55.25 mls @ 110.5 mls/hr 01/15/17 18:15 Sodium Chloride IV 01/15/17 18:44 ONCE ONE Levetiracetam 500 mg 01/13/17 17:00 01/15/17 17:17 Keppra PO 500 mg BID JANNIE Administration Morphine Sulfate 2 mg 01/15/17 16:01 01/15/17 17:16 Morphine IVP 2 mg Q4 PRN Administration Pain, severe (8-10) Tramadol HCl 100 mg 01/13/17 13:58 01/15/17 15:06 Ultram PO 100 mg Q6 PRN Administration Pain, moderate (4-7) - Patient Studies Lab Studies: Lab Studies 01/15/17 01/15/17 01/15/17 Range/Units 17:16 15:57 12:43 WBC 5.5 5.6 (4.8-10.8) K/uL RBC 1.79 L 1.81 L (4.40-5.90) Mil/uL Hgb 5.8 L* 5.8 L* D (12.0-18.0) g/dL Hct 16.8 L 17.0 L (35.0-51.0) % MCV 94.0 94.0 (80.0-94.0) fl MCH 32.3 H 32.1 H (27.0-31.0) pg MCHC 34.4 34.2 (33.0-37.0) g/dL RDW 18.9 H 18.4 H (11.5-14.5) % Plt Count 53 L 55 L (130-400) K/uL MPV 8.1 7.8 (7.2-11.7) fl Neut % (Auto) 51.3 51.9 (50.0-75.0) % Lymph % (Auto) 23.3 22.7 (20.0-40.0) % [place] % (Auto) 16.4 H 15.2 H (0.0-10.0) % Eos % (Auto) 8.4 H 9.4 H (0.0-4.0) % Baso % (Auto) 0.6 0.8 (0.0-2.0) % Neut # 2.8 2.9 (1.8-7.0) K/uL Lymph # 1.3 1.3 (1.0-4.3) K/uL [place] # 0.9 H 0.9 H (0.0-0.8) K/uL Eos # 0.5 0.5 (0.0-0.7) K/uL Baso # 0.0 0.0 (0.0-0.2) K/uL PT (9.8-13.1) Seconds INR (0.9-1.2) Sodium (132-148) mmol/l Potassium (3.6-5.0) MMOL/L Chloride (98-107) mmol/L Carbon Dioxide (22-30) mmol/L Anion Gap (10-20) BUN (9-20) mg/dl Creatinine (0.8-1.5) mg/dL Est GFR ( Amer) Est GFR (Non-Af Amer) Random Glucose (75-110) mg/dL Calcium (8.4-10.2) mg/dL Total Bilirubin (0.2-1.3) mg/dl AST (17-59) U/L ALT (21-72) U/L Alkaline Phosphatase (38-126) U/L Ammonia (16-60) umo/L Total Protein (6.3-8.2) G/DL Albumin (3.5-5.0) g/dL Globulin (2.2-3.9) gm/dL Albumin/Globulin Ratio (1.0-2.1) Amylase (30-110) U/L Lipase (23-300) U/L Urine Color [place] (YELLOW) Urine Clarity Cloudy (Clear) Urine pH 5.0 (5.0-8.0) Ur Specific [place] 1.034 H (1.003-1.030) Urine Protein 30 (NEGATIVE) mg/dL Urine Glucose (UA) Neg (Normal) mg/dL Urine Ketones Negative (NEGATIVE) mg/dL Urine Blood Negative (NEGATIVE) Urine Nitrate Negative (NEGATIVE) Urine Bilirubin Small (NEGATIVE) Urine Urobilinogen 4.0 (0.2-1.0) mg/dL Ur Leukocyte Esterase Neg (Negative) [place]/uL Urine RBC (Auto) 12 H (0-3) /hpf Urine Microscopic WBC 5 (0-5) /hpf Calcium Oxalate Crystal Occ H (<OCC) /hpf Urine Bacteria Rare (<OCC) Stool Occult Blood (NEGATIVE) 01/15/17 01/15/17 01/15/17 Range/Units 09:10 08:23 06:15 WBC 8.0 (4.8-10.8) K/uL RBC 2.52 L (4.40-5.90) Mil/uL Hgb 8.1 L (12.0-18.0) g/dL Hct 23.8 L (35.0-51.0) % MCV 94.5 H (80.0-94.0) fl MCH 32.0 H (27.0-31.0) pg MCHC 33.8 (33.0-37.0) g/dL RDW 18.9 H (11.5-14.5) % Plt Count 72 L (130-400) K/uL MPV (7.2-11.7) fl Neut % (Auto) (50.0-75.0) % Lymph % (Auto) (20.0-40.0) % [place] % (Auto) (0.0-10.0) % Eos % (Auto) (0.0-4.0) % Baso % (Auto) (0.0-2.0) % Neut # (1.8-7.0) K/uL Lymph # (1.0-4.3) K/uL [place] # (0.0-0.8) K/uL Eos # (0.0-0.7) K/uL Baso # (0.0-0.2) K/uL PT (9.8-13.1) Seconds INR (0.9-1.2) Sodium 134 (132-148) mmol/l Potassium 3.9 (3.6-5.0) MMOL/L Chloride 102 (98-107) mmol/L Carbon Dioxide 25 (22-30) mmol/L Anion Gap 10 (10-20) BUN 18 (9-20) mg/dl Creatinine 0.7 L (0.8-1.5) mg/dL Est GFR ( Amer) > 60 Est GFR (Non-Af Amer) > 60 Random Glucose 97 (75-110) mg/dL Calcium 7.9 L (8.4-10.2) mg/dL Total Bilirubin 6.5 H (0.2-1.3) mg/dl AST 88 H (17-59) U/L ALT 43 (21-72) U/L Alkaline Phosphatase 176 H D (38-126) U/L Ammonia (16-60) umo/L Total Protein 6.5 (6.3-8.2) G/DL Albumin 2.7 L (3.5-5.0) g/dL Globulin 3.7 (2.2-3.9) gm/dL Albumin/Globulin Ratio 0.7 L (1.0-2.1) Amylase 81 (30-110) U/L Lipase 91 (23-300) U/L Urine Color (YELLOW) Urine Clarity (Clear) Urine pH (5.0-8.0) Ur Specific [place] (1.003-1.030) Urine Protein (NEGATIVE) mg/dL Urine Glucose (UA) (Normal) mg/dL Urine Ketones (NEGATIVE) mg/dL Urine Blood (NEGATIVE) Urine Nitrate (NEGATIVE) Urine Bilirubin (NEGATIVE) Urine Urobilinogen (0.2-1.0) mg/dL Ur Leukocyte Esterase (Negative) [place]/uL Urine RBC (Auto) (0-3) /hpf Urine Microscopic WBC (0-5) /hpf Calcium Oxalate Crystal (<OCC) /hpf Urine Bacteria (<OCC) Stool Occult Blood Positive H (NEGATIVE) 01/15/17 01/15/17 01/15/17 Range/Units 06:15 06:15 06:15 WBC 7.3 (4.8-10.8) K/uL RBC 2.26 L (4.40-5.90) Mil/uL Hgb 7.2 L (12.0-18.0) g/dL Hct 21.1 L (35.0-51.0) % MCV 93.5 (80.0-94.0) fl MCH 32.0 H (27.0-31.0) pg MCHC 34.2 (33.0-37.0) g/dL RDW 18.6 H (11.5-14.5) % Plt Count 65 L (130-400) K/uL MPV 8.1 (7.2-11.7) fl Neut % (Auto) 52.5 (50.0-75.0) % Lymph % (Auto) 22.2 (20.0-40.0) % [place] % (Auto) 14.1 H (0.0-10.0) % Eos % (Auto) 10.3 H (0.0-4.0) % Baso % (Auto) 0.9 (0.0-2.0) % Neut # 3.9 (1.8-7.0) K/uL Lymph # 1.6 (1.0-4.3) K/uL [place] # 1.0 H (0.0-0.8) K/uL Eos # 0.8 H (0.0-0.7) K/uL Baso # 0.1 (0.0-0.2) K/uL PT 25.3 H (9.8-13.1) Seconds INR 2.2 H (0.9-1.2) Sodium (132-148) mmol/l Potassium (3.6-5.0) MMOL/L Chloride (98-107) mmol/L Carbon Dioxide (22-30) mmol/L Anion Gap (10-20) BUN (9-20) mg/dl Creatinine (0.8-1.5) mg/dL Est GFR ( Amer) Est GFR (Non-Af Amer) Random Glucose (75-110) mg/dL Calcium (8.4-10.2) mg/dL Total Bilirubin (0.2-1.3) mg/dl AST (17-59) U/L ALT (21-72) U/L Alkaline Phosphatase (38-126) U/L Ammonia 73 H (16-60) umo/L Total Protein (6.3-8.2) G/DL Albumin (3.5-5.0) g/dL Globulin (2.2-3.9) gm/dL Albumin/Globulin Ratio (1.0-2.1) Amylase (30-110) U/L Lipase (23-300) U/L Urine Color (YELLOW) Urine Clarity (Clear) Urine pH (5.0-8.0) Ur Specific [place] (1.003-1.030) Urine Protein (NEGATIVE) mg/dL Urine Glucose (UA) (Normal) mg/dL Urine Ketones (NEGATIVE) mg/dL Urine Blood (NEGATIVE) Urine Nitrate (NEGATIVE) Urine Bilirubin (NEGATIVE) Urine Urobilinogen (0.2-1.0) mg/dL Ur Leukocyte Esterase (Negative) [place]/uL Urine RBC (Auto) (0-3) /hpf Urine Microscopic WBC (0-5) /hpf Calcium Oxalate Crystal (<OCC) /hpf Urine Bacteria (<OCC) Stool Occult Blood (NEGATIVE) Laboratory Results - last 24 hr 01/15/17 01/15/17 01/15/17 06:15 06:15 06:15 WBC 7.3 RBC 2.26 L Hgb 7.2 L Hct 21.1 L MCV 93.5 MCH 32.0 H MCHC 34.2 RDW 18.6 H Plt Count 65 L MPV 8.1 Neut % (Auto) 52.5 Lymph % (Auto) 22.2 [place] % (Auto) 14.1 H Eos % (Auto) 10.3 H Baso % (Auto) 0.9 Neut # 3.9 Lymph # 1.6 [place] # 1.0 H Eos # 0.8 H Baso # 0.1 PT 25.3 H INR 2.2 H Sodium Potassium Chloride Carbon Dioxide Anion Gap BUN Creatinine Est GFR ( Amer) Est GFR (Non-Af Amer) Random Glucose Calcium Total Bilirubin AST ALT Alkaline Phosphatase Ammonia 73 H Total Protein Albumin Globulin Albumin/Globulin Ratio Amylase Lipase Urine Color Urine Clarity Urine pH Ur Specific [place] Urine Protein Urine Glucose (UA) Urine Ketones Urine Blood Urine Nitrate Urine Bilirubin Urine Urobilinogen Ur Leukocyte Esterase Urine RBC (Auto) Urine Microscopic WBC Calcium Oxalate Crystal Urine Bacteria Stool Occult Blood 01/15/17 01/15/17 01/15/17 06:15 08:23 09:10 WBC 8.0 RBC 2.52 L Hgb 8.1 L Hct 23.8 L MCV 94.5 H MCH 32.0 H MCHC 33.8 RDW 18.9 H Plt Count 72 L MPV Neut % (Auto) Lymph % (Auto) [place] % (Auto) Eos % (Auto) Baso % (Auto) Neut # Lymph # [place] # Eos # Baso # PT INR Sodium 134 Potassium 3.9 Chloride 102 Carbon Dioxide 25 Anion Gap 10 BUN 18 Creatinine 0.7 L Est GFR ( Amer) > 60 Est GFR (Non-Af Amer) > 60 Random Glucose 97 Calcium 7.9 L Total Bilirubin 6.5 H AST 88 H ALT 43 Alkaline Phosphatase 176 H D Ammonia Total Protein 6.5 Albumin 2.7 L Globulin 3.7 Albumin/Globulin Ratio 0.7 L Amylase 81 Lipase 91 Urine Color Urine Clarity Urine pH Ur Specific [place] Urine Protein Urine Glucose (UA) Urine Ketones Urine Blood Urine Nitrate Urine Bilirubin Urine Urobilinogen Ur Leukocyte Esterase Urine RBC (Auto) Urine Microscopic WBC Calcium Oxalate Crystal Urine Bacteria Stool Occult Blood Positive H 01/15/17 01/15/17 01/15/17 12:43 15:57 17:16 WBC 5.6 5.5 RBC 1.81 L 1.79 L Hgb 5.8 L* D 5.8 L* Hct 17.0 L 16.8 L MCV 94.0 94.0 MCH 32.1 H 32.3 H MCHC 34.2 34.4 RDW 18.4 H 18.9 H Plt Count 55 L 53 L MPV 7.8 8.1 Neut % (Auto) 51.9 51.3 Lymph % (Auto) 22.7 23.3 [place] % (Auto) 15.2 H 16.4 H Eos % (Auto) 9.4 H 8.4 H Baso % (Auto) 0.8 0.6 Neut # 2.9 2.8 Lymph # 1.3 1.3 [place] # 0.9 H 0.9 H Eos # 0.5 0.5 Baso # 0.0 0.0 PT INR Sodium Potassium Chloride Carbon Dioxide Anion Gap BUN Creatinine Est GFR ( Amer) Est GFR (Non-Af Amer) Random Glucose Calcium Total Bilirubin AST ALT Alkaline Phosphatase Ammonia Total Protein Albumin Globulin Albumin/Globulin Ratio Amylase Lipase Urine Color [place] Urine Clarity Cloudy Urine pH 5.0 Ur Specific [place] 1.034 H Urine Protein 30 Urine Glucose (UA) Neg Urine Ketones Negative Urine Blood Negative Urine Nitrate Negative Urine Bilirubin Small Urine Urobilinogen 4.0 Ur Leukocyte Esterase Neg Urine RBC (Auto) 12 H Urine Microscopic WBC 5 Calcium Oxalate Crystal Occ H Urine Bacteria Rare Stool Occult Blood Critical Care Progress Note - Extremities/Vascular Does the Patient have a Central Venous Catheter?: No Does the Patient need a Central Venous Catheter?: No Does the Patient have a Ty Catheter?: No Does the Patient need a Ty Catheter?: No - Prophylaxis GI Prophylaxis GI: Not Indicated - Prophylaxis DVT Prophylaxis DVT: SCDs - Nutrition Nutrition: Nutrition Category Date Time Status Regular Diet [DIET] Diets 01/15/17 Lunch Active
[2017-01-15] MEDS ORDERED: Iohexol 240 (50 ml) PO STA ×2 (18:25→20:32)
[2017-01-15] MEDS ORDERED: Lactated Ringer's 1,000 ML IV SCH (20:32)
[2017-01-15] MEDS: Sodium Chloride 0.9% 1,000 ML IV SCH (21:32)
--- NOTE | 2017-01-16 02:50 | CT ---
EXAM: CT Abdomen and Pelvis With Intravenous Contrast CLINICAL HISTORY: 51 years old, male; Pain; Other: Falling hgb; Additional info: Falling hgb. R/O intraabdominal bleed TECHNIQUE: Axial computed tomography images of the abdomen and pelvis with intravenous contrast. This CT exam was performed using one or more of the following dose reduction techniques: automated exposure control, adjustment of the mA and/or kV according to patient size, and/or use of iterative reconstruction technique. Coronal and sagittal reformatted images were created and reviewed. CONTRAST: 0 mL of po administered intravenously. COMPARISON: No relevant prior studies available. FINDINGS: Lower thorax: The bilateral lung bases are clear. ABDOMEN: Liver: A TIPS stent is identified, in good position. The portal vein is distended. Gallbladder and bile ducts: The gallbladder is only minimally distended, with calcified stones within the fundus. No significant intra- or extrahepatic biliary ductal dilation. Pancreas: Enhances homogeneously. No ductal dilation. No discrete mass. Spleen: Persistent splenic enlargement. Adrenals: No acute findings. Kidneys and ureters: No acute findings. No hydronephrosis or renal calculi. No discrete solid mass. PELVIS: Bladder: No acute findings. Reproductive: No acute findings. Appendix: The appendix is of normal caliber (series 2, image 51) . ABDOMEN and PELVIS: Stomach and bowel: No obstruction. No mucosal thickening. Peritoneum: No significant fluid collection. No free air. Lymph nodes: No pathologically enlarged lymph nodes. Vasculature: As above. Bones: No acute fracture. IMPRESSION: No acute intra-abdominal hemorrhage. Tips stent in good position. Persistent splenomegaly
[2017-01-16 10:18] LABS: BASO % 0.7 % (0.0-2.0); EOS # 0.2 K/uL (0.0-0.7); EOS % 6.9 % (0.0-4.0); HEMOGLOBIN 6.6 g/dL (12.0-18.0); LYMPH # 0.6 K/uL (1.0-4.3); LYMPH % 20.4 % (20.0-40.0); MEAN CELL VOLUME 92.3 fl (80.0-94.0); MEAN CORPUSCULAR HEMOGLOBIN 31.7 pg (27.0-31.0); MEAN CORPUSCULAR HGB CONC 34.4 g/dL (33.0-37.0); MEAN PLATELET VOLUME 8.3 fl (7.2-11.7); MONO # 0.5 K/uL (0.0-0.8); MONO % 15.2 % (0.0-10.0); NEUT # 1.8 K/uL (1.8-7.0); NEUT % 56.8 % (50.0-75.0); NRBC % 0.1 % (0.0-0.0); RBC 2.08 Mil/uL (4.40-5.90); RED CELL DISTRIBUTION WIDTH 17.2 % (11.5-14.5); WHITE BLOOD COUNT 3.1 K/uL (4.8-10.8)
[2017-01-16 10:43] LABS: PARTIAL THROMBOPLASTIN TIME 40.6 Seconds (25.6-37.1); PROTHROMBIN TIME 23.2 Seconds (9.8-13.1)
[2017-01-16 10:45] LABS: ALB/GLOB RATIO 0.8 (1.0-2.1); ALBUMIN 2.6 g/dL (3.5-5.0); ALT/SGPT 52 U/L (21-72); AST/SGOT 82 U/L (17-59); BLOOD UREA NITROGEN 18 mg/dl (9-20); CALCIUM 7.8 mg/dL (8.4-10.2); GFR AFRICAN-AMERICAN > 60; GFR NON-AFRICAN AMERICAN > 60
[2017-01-16] MEDS: Sodium Chloride 0.9% 1,000 ML IV SCH (11:26)
--- NOTE | 2017-01-16 11:58 | CP.PCM.CON ---
History of Present Illness - History of Present Illness History of Present Illness: 51 year old male with a history of alcoholic liver cirrhosis s/p TIPS, presented with thigh ecchymosis, with concern for thigh hematoma, anemia and coagulopathy. The patient reports to sleeping on coins which led to his bruising. He denies other trauma or bleeding. His hgb [place] was at 5.6 and has dropped despite PRBC transfusion. He does admit to increasing swelling in his right thigh and tenderness. Past medical history: Alcoholic liver cirrhosis Past surgical history: Left finger surgery Family history: Denies hematologic and oncologic problems Social history: Denies tobacco, alcohol, and illicit drug use. Allergies: Aspirin Review of systems: All remaining review of systems including HEENT, cardiovascular, respiratory, gastrointestinal, genitourinary, musculoskeletal, dermatologic, neurologic, and psychiatric are negative unless mentioned in the HPI. Past Patient History - Infectious Disease Hx of Infectious Diseases: None - Tetanus Immunizations Tetanus Immunization: Unknown - Past Medical History & Family History Past Medical History?: Yes - Past Social History Smoking Status: Heavy Smoker > 10 Cigarettes Daily - CARDIAC Hx Cardiac Disorders: No - PULMONARY Hx Respiratory Disorders: No - NEUROLOGICAL Hx Neurological Disorder: Yes - HEENT Hx HEENT Problems: No - RENAL Hx Chronic Kidney Disease: No - ENDOCRINE/METABOLIC Hx Endocrine Disorders: No - HEMATOLOGICAL/ONCOLOGICAL Hx Blood Disorders: Yes - INTEGUMENTARY Hx Dermatological Problems: No - MUSCULOSKELETAL/RHEUMATOLOGICAL Hx Musculoskeletal Disorders: Yes - GASTROINTESTINAL Hx Gastritis: Yes Hx Pancreatitis: Yes (patient denies) - GENITOURINARY/GYNECOLOGICAL Hx Genitourinary Disorders: No - PSYCHIATRIC Hx Psychophysiologic Disorder: No - SURGICAL HISTORY Other/Comment: "Stomach cauterized"; TIPS (Liver Stent);. Endoscopy - ANESTHESIA Hx Anesthesia: Yes Hx Anesthesia Reactions: No Meds Allergies/Adverse Reactions: Allergies Allergy/AdvReac Type Severity Reaction Status Date / Time aspirin Allergy NAUSEA Verified 11/07/16 15:22 - Medications Medications: Current Medications Folic Acid (Folic Acid) 1 mg PO DAILY [facility] Sodium Chloride (Sodium Chloride 0.9%) 1,000 mls @ 75 mls/hr IV .[id number] [facility] Stop: 01/16/17 21:26 Last Admin: 01/16/17 11:26 Dose: 75 mls/hr Levetiracetam (Keppra) 500 mg PO BID [facility] Last Admin: 01/16/17 11:00 Dose: 500 mg Morphine Sulfate (Morphine) 2 mg IVP Q4 PRN PRN Reason: Pain, severe (8-10) Last Admin: 01/16/17 09:02 Dose: 2 mg Multivitamins/Vitamin C (Multi-Delyn Liquid) 5 ml PO DAILY [facility] Pantoprazole Sodium (Protonix Inj) 40 mg IVP Q12 [facility] Last Admin: 01/16/17 09:05 Dose: 40 mg Thiamine HCl (Vitamin B1 Tab) 100 mg PO DAILY [facility] Tramadol HCl (Ultram) 100 mg PO Q6 PRN PRN Reason: Pain, moderate (4-7) Physical Exam - Head Exam Head Exam: ATRAUMATIC - Eye Exam Eye Exam: Normal appearance - ENT Exam ENT Exam: Mucous Membranes Dry - Respiratory Exam Respiratory Exam: NORMAL BREATHING PATTERN - Cardiovascular Exam Cardiovascular Exam: +S1, +S2 - GI/Abdominal Exam GI & Abdominal Exam: Normal Bowel Sounds - Extremities Exam Additional comments: right thigh ecchymosis and swelling - Neurological Exam Neurological exam: Oriented x3 - Psychiatric Exam Psychiatric exam: Normal Affect, Normal Mood - Skin Skin Exam: Warm Results - Vital Signs Recent Vital Signs: Last Vital Signs Temp 98.4 F 01/16/17 04:00 Pulse 83 01/16/17 10:00 Resp 12 01/16/17 10:00 BP 116/58 L 01/16/17 10:00 Pulse Ox 99 01/16/17 10:00 - Labs Result Diagrams: 01/16/17 09:30 01/16/17 09:30 Labs: Laboratory Results - last 24 hr 01/13/17 01/15/17 01/15/17 21:13 12:43 15:57 WBC 5.6 RBC 1.81 L Hgb 5.8 L* D Hct 17.0 L MCV 94.0 MCH 32.1 H MCHC 34.2 RDW 18.4 H Plt Count 55 L MPV 7.8 Neut % (Auto) 51.9 Lymph % (Auto) 22.7 [place] % (Auto) 15.2 H Eos % (Auto) 9.4 H Baso % (Auto) 0.8 Neut # 2.9 Lymph # 1.3 [place] # 0.9 H Eos # 0.5 Baso # 0.0 PT INR APTT Sodium Potassium Chloride Carbon Dioxide Anion Gap BUN Creatinine Est GFR ( Amer) Est GFR (Non-Af Amer) Random Glucose Calcium Total Bilirubin AST ALT Alkaline Phosphatase Total Protein Albumin Globulin Albumin/Globulin Ratio Urine Color [place] Urine Clarity Cloudy Urine pH 5.0 Ur Specific [place] 1.034 H Urine Protein 30 Urine Glucose (UA) Neg Urine Ketones Negative Urine Blood Negative Urine Nitrate Negative Urine Bilirubin Small Urine Urobilinogen 4.0 Ur Leukocyte Esterase Neg Urine RBC (Auto) 12 H Urine Microscopic WBC 5 Calcium Oxalate Crystal Occ H Urine Bacteria Rare Blood Type O POSITIVE Antibody Screen Negative Antibody Identification Crossmatch See Detail BBK History Checked Patient has bt 01/15/17 01/15/17 01/16/17 17:16 20:06 09:30 WBC 5.5 3.1 L RBC 1.79 L 2.08 L Hgb 5.8 L* 6.6 L Hct 16.8 L 19.2 L MCV 94.0 92.3 MCH 32.3 H 31.7 H MCHC 34.4 34.4 RDW 18.9 H 17.2 H Plt Count 53 L 52 L MPV 8.1 8.3 Neut % (Auto) 51.3 56.8 Lymph % (Auto) 23.3 20.4 [place] % (Auto) 16.4 H 15.2 H Eos % (Auto) 8.4 H 6.9 H Baso % (Auto) 0.6 0.7 Neut # 2.8 1.8 Lymph # 1.3 0.6 L [place] # 0.9 H 0.5 Eos # 0.5 0.2 Baso # 0.0 0.0 PT INR APTT Sodium Potassium Chloride Carbon Dioxide Anion Gap BUN Creatinine Est GFR ( Amer) Est GFR (Non-Af Amer) Random Glucose Calcium Total Bilirubin AST ALT Alkaline Phosphatase Total Protein Albumin Globulin Albumin/Globulin Ratio Urine Color Urine Clarity Urine pH Ur Specific [place] Urine Protein Urine Glucose (UA) Urine Ketones Urine Blood Urine Nitrate Urine Bilirubin Urine Urobilinogen Ur Leukocyte Esterase Urine RBC (Auto) Urine Microscopic WBC Calcium Oxalate Crystal Urine Bacteria Blood Type O POSITIVE Antibody Screen Positive Antibody Identification Anti Radha Crossmatch See Detail BBK History Checked Patient has bt 01/16/17 01/16/17 09:30 09:30 WBC RBC Hgb Hct MCV MCH MCHC RDW Plt Count MPV Neut % (Auto) Lymph % (Auto) [place] % (Auto) Eos % (Auto) Baso % (Auto) Neut # Lymph # [place] # Eos # Baso # PT 23.2 H INR 2.0 H APTT 40.6 H Sodium 132 Potassium 3.7 Chloride 102 Carbon Dioxide 25 Anion Gap 9 L BUN 18 Creatinine 0.7 L Est GFR ( Amer) > 60 Est GFR (Non-Af Amer) > 60 Random Glucose 92 Calcium 7.8 L Total Bilirubin 6.8 H AST 82 H ALT 52 Alkaline Phosphatase 105 Total Protein 6.0 L Albumin 2.6 L Globulin 3.4 Albumin/Globulin Ratio 0.8 L Urine Color Urine Clarity Urine pH Ur Specific [place] Urine Protein Urine Glucose (UA) Urine Ketones Urine Blood Urine Nitrate Urine Bilirubin Urine Urobilinogen Ur Leukocyte Esterase Urine RBC (Auto) Urine Microscopic WBC Calcium Oxalate Crystal Urine Bacteria Blood Type Antibody Screen Antibody Identification Crossmatch BBK History Checked Assessment & Plan (1) Thigh hematoma Assessment and Plan: given dropping hgb, agree with ICU transfer to receive an additional 2U PRBC, 2U FFP, and 1 bag platelets surgical f/u; has distal pulses now but may develop compartment syndrome Status: Acute (2) Anemia Assessment and Plan: secondary to thigh bleeding from trauma transfusion support Status: Acute Priority: High (3) Coagulopathy Assessment and Plan: secondary to liver cirrhosis s/p FFP Status: Acute (4) Thrombocytopenia Assessment and Plan: liver disease, splenic sequestration 1 bag plt transfusion Thank you for this interesting consult. Status: Acute
--- NOTE | 2017-01-16 12:15 | CP.PCM.PN ---
Subjective - Date & Time of Evaluation Date of Evaluation: 01/16/17 Time of Evaluation: 07:00 - Subjective Subjective: GENERAL SURGERY PROGRESS NOTE FOR DR. FONTANEZ Patient seen and examined at bedside in the ICU. He was transferred to the ICU yesterday due to sudden drop in Hgb from 8.1 to 5.8. He got 2 PRBC and 2 FFP yesterday/last night. He denies numbness or tingling. He has decreased ROM but is able to move the knee joint some and was able to stand up and walk around in the room. He reports pain in the thigh area. Objective - Vital Signs/Intake and Output Vital Signs (last 24 hours): Temp Pulse Resp BP Pulse Ox 98.5 F 84 16 111/61 98 01/16/17 12:00 01/16/17 12:00 01/16/17 12:00 01/16/17 12:00 01/16/17 12:00 Intake and Output: 01/16/17 01/16/17 06:59 18:59 Intake Total 1370 300 Output Total 250 Balance 1120 300 - Medications Medications: Current Medications Folic Acid (Folic Acid) 1 mg PO DAILY [facility] Sodium Chloride (Sodium Chloride 0.9%) 1,000 mls @ 75 mls/hr IV .[id number] [facility] Stop: 01/16/17 21:26 Last Admin: 01/16/17 11:26 Dose: 75 mls/hr Levetiracetam (Keppra) 500 mg PO BID [facility] Last Admin: 01/16/17 11:00 Dose: 500 mg Morphine Sulfate (Morphine) 2 mg IVP Q4 PRN PRN Reason: Pain, severe (8-10) Last Admin: 01/16/17 09:02 Dose: 2 mg Multivitamins/Vitamin C (Multi-Delyn Liquid) 5 ml PO DAILY [facility] Pantoprazole Sodium (Protonix Inj) 40 mg IVP Q12 [facility]IE Last Admin: 01/16/17 09:05 Dose: 40 mg Thiamine HCl (Vitamin B1 Tab) 100 mg PO DAILY [facility] Tramadol HCl (Ultram) 100 mg PO Q6 PRN PRN Reason: Pain, moderate (4-7) - Labs Labs: 01/16/17 09:30 01/16/17 09:30 PT 23.2 Seconds (9.8-13.1) H 01/16/17 09:30 INR 2.0 (0.9-1.2) H 01/16/17 09:30 APTT 40.6 Seconds (25.6-37.1) H 01/16/17 09:30 - Constitutional Appears: Non-toxic, No Acute Distress - Eye Exam Eye Exam: EOMI, Normal appearance - Respiratory Exam Respiratory Exam: NORMAL BREATHING PATTERN. absent: Respiratory Distress - Cardiovascular Exam Cardiovascular Exam: +S1, +S2 - Extremities Exam Additional comments: Right anterior/lateral thigh with large echymosis and edema. Decreased ROM. Warm , tender and firm to palpation. Strong pulses to DP and PT. - Neurological Exam Neurological Exam: Alert, Awake, Oriented x3 - Skin Skin Exam: Dry, Warm Additional comments: Ecchymosis to right thigh Assessment and Plan - Assessment and Plan (Free Text) Assessment: 51yo M with Right anterior thigh hematoma - Hgb 6.3 this AM after 2 FFP and 2 PRBC yesterday. Getting another 1 PRBC and 1 FFP now - Palpable DP and PT pulses - Ortho following: no surgical intervention - Right leg elevation and encouraged ROM of knee joint - No signs of compartment syndrome. - No general surgical intervention needed. - Will continue to monitor H&H - Transfuse as needed - Discussed plan with Dr. Washington Weir PGY-3
--- NOTE | 2017-01-16 12:24 | CP.PCM.PN ---
Subjective - Date & Time of Evaluation Date of Evaluation: 01/16/17 Time of Evaluation: 08:30 - Subjective Subjective: Pt was seen and examined at bedside, states he needs to move out of his apartment on Wednesday and hopes to be discharged by then. His right extremity pain is controlled with pain medication at this moment. pt was transferred to ICU last night has his hemoglobin dropped to 5.8, at the ICU he received 2untis of pRBC and 1 of PLT. this morning hemoglobin is now 6.6. Pt was also seen by GI yesterday, CTAP was negative for any evidence of hemorrhage, and Heme/ONC is following case closely. Pt has been evaluated by general surgery, Orthopedic surgery and Interventional Radialogy Objective - Vital Signs/Intake and Output Vital Signs (last 24 hours): Temp Pulse Resp BP Pulse Ox 98.5 F 84 16 111/61 98 01/16/17 12:00 01/16/17 12:00 01/16/17 12:00 01/16/17 12:00 01/16/17 12:00 Intake and Output: 01/16/17 01/16/17 06:59 18:59 Intake Total 1370 300 Output Total 250 Balance 1120 300 - Medications Medications: Current Medications Folic Acid (Folic Acid) 1 mg PO DAILY [facility] Sodium Chloride (Sodium Chloride 0.9%) 1,000 mls @ 75 mls/hr IV .[id number] [facility] Stop: 01/16/17 21:26 Last Admin: 01/16/17 11:26 Dose: 75 mls/hr Levetiracetam (Keppra) 500 mg PO BID [facility] Last Admin: 01/16/17 11:00 Dose: 500 mg Morphine Sulfate (Morphine) 2 mg IVP Q4 PRN PRN Reason: Pain, severe (8-10) Last Admin: 01/16/17 09:02 Dose: 2 mg Multivitamins/Vitamin C (Multi-Delyn Liquid) 5 ml PO DAILY [facility] Pantoprazole Sodium (Protonix Inj) 40 mg IVP Q12 [facility] Last Admin: 01/16/17 09:05 Dose: 40 mg Thiamine HCl (Vitamin B1 Tab) 100 mg PO DAILY [facility] Tramadol HCl (Ultram) 100 mg PO Q6 PRN PRN Reason: Pain, moderate (4-7) - Labs Labs: 01/16/17 09:30 01/16/17 09:30 PT 23.2 Seconds (9.8-13.1) H 01/16/17 09:30 INR 2.0 (0.9-1.2) H 01/16/17 09:30 APTT 40.6 Seconds (25.6-37.1) H 01/16/17 09:30 - Constitutional Appears: Non-toxic, No Acute Distress - Head Exam Head Exam: NORMOCEPHALIC - ENT Exam ENT Exam: Mucous Membranes Moist - Respiratory Exam Respiratory Exam: Clear to Ausculation Bilateral, NORMAL BREATHING PATTERN. absent: Wheezes - Cardiovascular Exam Cardiovascular Exam: REGULAR RHYTHM, +S1, +S2 - GI/Abdominal Exam GI & Abdominal Exam: Soft, Normal Bowel Sounds. absent: Tenderness - Extremities Exam Extremities Exam: Calf Tenderness, Joint Swelling. absent: Pedal Edema Additional comments: Right extremity is very swollen, tender on palpation , but pulses are present. Ecchymosis present on admission has improved. - Neurological Exam Neurological Exam: Alert, Awake, Oriented x3 Assessment and Plan - Assessment and Plan (Free Text) Assessment: 51 yo M with PMH alcohol abuse, seizures and liver cirrhosis, admitted for right thigh hematoma, pt is still actively bleeding, repeat drops in H/H being addressed with transfusions Plan: 1) Right Thigh Hematoma -CT on admission: No fracture. Infiltration and swelling of anterior musculature -MRI with constrast done 01/15/17- large liquefying quadriceps hematoma -[facility] who both states since there is no evidence of compartment syndrome, there is no indication for surgical intervention -[employer] closely following case -Monitor for compartment syndrome 2) Anemia, unspecified -s/p 2U PRBC amd 1 PLT hemoglobin now 6.6 as of this morning cbc, hemoglobin being monitored closely (now has had total of 4units, 1 FFP and 1 PLT) -hematology following case closely -fecal occult stool positive -GI consult placed -CT abdomen and pelvis does not show any evidence of hemorrage, GI did administer DDAVP 3) History of seizures, last episode 2 days prior to admission -Continue home meds Keppra -keppra level ordered this morning, f/u results -Monitor for seizures 4) Alcohol Abuse -CIWA score 1 -Alcohol level was 11 at admission -Monitor for withdrawal 5) DVT prophylaxis SCDs, no anticoagulation
[2017-01-16] MEDS: Multiple Vitamins Oral Solution PO SCH (12:31)
--- NOTE | 2017-01-16 16:20 | CP.PCM.CON ---
History of Present Illness - History of Present Illness History of Present Illness: 51-year-old male with PMH = alcohol liver cirrhosis/liver failure with history of TIPS procedure 2015, epilepsy, presented to the emergency room at [facility] on 01/13/17 with right thigh pain for 2 days. He reports that his last seizure was 2 days ago. He denies trauma, states that 2 days ago he woke up in the morning after sleeping on a pocket filled with coins and resulting upper right thigh pain that continued to progressively worsen. He doesn't reject the possibility of injuring his After evaluation by ER staff and reviewed imaging was diagnosed with a large right thigh hematoma and admitted to the medical service for definitive treatment and management. Gen Surg consultation was placed and pt was seen as an inpt on 01/13/17 and deemed that there was no need for urgent surgical intervention at that time. An orthopedic surgery consultation was placed and I evaluated the pt as an inpt on 01/15/17. On admission, Hgb 8.4, continued to decrease and monitored. His baseline INR on admission was 2.0 without any blood thinner medication on board, baseline liver dysfunction and spleen sequestration. today, 01/15/17, he rates his pain as 4/10, he is able to lift his leg off the ground as a straight leg raise and able to ambulate with pain on the right lower extremity, he is able to move his toes and his ankles without pain. He denies any paresthesias or change in his sensory, he denies pain that is uncontrollable with medication. Review of imaging: x-rays right femur and hip: - for fracture/dislocation or uri issue CT right femur/thigh done 01/07 6S 17: There is infiltration and swelling of the anterior musculature of the right thigh including the quadriceps, rectus for Vlad, glasses intermedius and lateralis effacement of the fat and fascial planes with what appears as a small fluid collection in the inferior aspect of the distal thigh more prominent laterally. Rule out posttraumatic hemorrhage, infection or less likely an infiltrating tumor. Clinical correlation. CT angio thigh done 01/14/17: Large hematoma involving the right quadriceps muscle with edema and surrounding soft tissue. Hematoma involves the vastus lateralis and intermedius muscles. There is also a hematoma of the sartorius and rectus femoris distally. There is no evidence of active bleed. There is no drainable collection. Past Patient History - Infectious Disease Hx of Infectious Diseases: None - Tetanus Immunizations Tetanus Immunization: Unknown - Past Medical History & Family History Past Medical History?: Yes - Past Social History Smoking Status: Heavy Smoker > 10 Cigarettes Daily - CARDIAC Hx Cardiac Disorders: No - PULMONARY Hx Respiratory Disorders: No - NEUROLOGICAL Hx Neurological Disorder: Yes - HEENT Hx HEENT Problems: No - RENAL Hx Chronic Kidney Disease: No - ENDOCRINE/METABOLIC Hx Endocrine Disorders: No - HEMATOLOGICAL/ONCOLOGICAL Hx Blood Disorders: Yes - INTEGUMENTARY Hx Dermatological Problems: No - MUSCULOSKELETAL/RHEUMATOLOGICAL Hx Musculoskeletal Disorders: Yes - GASTROINTESTINAL Hx Gastritis: Yes Hx Pancreatitis: Yes (patient denies) - GENITOURINARY/GYNECOLOGICAL Hx Genitourinary Disorders: No - PSYCHIATRIC Hx Psychophysiologic Disorder: No - SURGICAL HISTORY Other/Comment: "Stomach cauterized"; TIPS (Liver Stent);. Endoscopy - ANESTHESIA Hx Anesthesia: Yes Hx Anesthesia Reactions: No Meds Allergies/Adverse Reactions: Allergies Allergy/AdvReac Type Severity Reaction Status Date / Time aspirin Allergy NAUSEA Verified 11/07/16 15:22 - Medications Medications: Current Medications Folic Acid (Folic Acid) 1 mg PO DAILY [facility] Last Admin: 01/16/17 12:31 Dose: 1 mg Sodium Chloride (Sodium Chloride 0.9%) 1,000 mls @ 75 mls/hr IV .[id number] [facility] Stop: 01/16/17 21:26 Last Admin: 01/16/17 11:26 Dose: 75 mls/hr Levetiracetam (Keppra) 500 mg PO BID [facility] Last Admin: 01/16/17 11:00 Dose: 500 mg Morphine Sulfate (Morphine) 2 mg IVP Q4 PRN PRN Reason: Pain, severe (8-10) Last Admin: 01/16/17 13:03 Dose: 2 mg Multivitamins/Vitamin C (Multi-Delyn Liquid) 5 ml PO DAILY [facility] Last Admin: 01/16/17 12:31 Dose: 5 ml Pantoprazole Sodium (Protonix Inj) 40 mg IVP Q12 [facility] Last Admin: 01/16/17 09:05 Dose: 40 mg Thiamine HCl (Vitamin B1 Tab) 100 mg PO DAILY [facility] Last Admin: 01/16/17 12:31 Dose: 100 mg Tramadol HCl (Ultram) 100 mg PO Q6 PRN PRN Reason: Pain, moderate (4-7) Physical Exam - Extremities Exam Additional comments: right lower extremity: + + Significant swelling at the thigh more so at the proximal and anterior aspect of the thigh, significant ecchymosis at the posterior lateral aspect of the thigh, thigh is swollen but still soft/ compartments are not tense. no fluctuance, skin intact, no instability Able to tolerate passive range of motion without pain at the hip, knee, ankle and toes +5/5 motor strength hip flexion/extension, knee flexion/extension, ankle dorsiflexion/plantarflexion, toes up and down Sensory intact L2-S1, deep peroneal nerves as superficial peroneal nerve/tibial nerve/anterior femoral nerve 2+ dorsalis pedis pulse, 2+ popliteus pulse, 2+ femoral artery, brisk cap refill all toes with warm to touch left lower extremity: - TTP, - swelling/erythema/warmth, full range of motion at all joints without pain, - instability +5/5 motor strength hip flexion/extension, knee flexion/extension, ankle dorsiflexion/plantarflexion, toes up and down Sensory intact L2-S1, deep peroneal nerve/tibial nerve/superficial peroneal nerve 2+ dorsalis pedis pulse, brisk cap refill all toes Results - Vital Signs Recent Vital Signs: Last Vital Signs Temp 98.9 F 01/16/17 15:58 Pulse 87 01/16/17 15:58 Resp 12 01/16/17 15:58 BP 107/59 L 01/16/17 15:58 Pulse Ox 96 01/16/17 15:58 - Labs Result Diagrams: 01/16/17 09:30 01/16/17 09:30 Labs: Laboratory Results - last 24 hr 01/13/17 01/15/17 01/15/17 21:13 17:16 20:06 WBC 5.5 RBC 1.79 L Hgb 5.8 L* Hct 16.8 L MCV 94.0 MCH 32.3 H MCHC 34.4 RDW 18.9 H Plt Count 53 L MPV 8.1 Neut % (Auto) 51.3 Lymph % (Auto) 23.3 [place] % (Auto) 16.4 H Eos % (Auto) 8.4 H Baso % (Auto) 0.6 Neut # 2.8 Lymph # 1.3 [place] # 0.9 H Eos # 0.5 Baso # 0.0 PT INR APTT Sodium Potassium Chloride Carbon Dioxide Anion Gap BUN Creatinine Est GFR ( Amer) Est GFR (Non-Af Amer) Random Glucose Calcium Total Bilirubin AST ALT Alkaline Phosphatase Total Protein Albumin Globulin Albumin/Globulin Ratio Blood Type O POSITIVE O POSITIVE Antibody Screen Negative Positive Antibody Identification Anti Radha Crossmatch See Detail See Detail BBK History Checked Patient has bt Patient has bt 01/16/17 01/16/17 01/16/17 09:30 09:30 09:30 WBC 3.1 L RBC 2.08 L Hgb 6.6 L Hct 19.2 L MCV 92.3 MCH 31.7 H MCHC 34.4 RDW 17.2 H Plt Count 52 L MPV 8.3 Neut % (Auto) 56.8 Lymph % (Auto) 20.4 [place] % (Auto) 15.2 H Eos % (Auto) 6.9 H Baso % (Auto) 0.7 Neut # 1.8 Lymph # 0.6 L [place] # 0.5 Eos # 0.2 Baso # 0.0 PT 23.2 H INR 2.0 H APTT 40.6 H Sodium 132 Potassium 3.7 Chloride 102 Carbon Dioxide 25 Anion Gap 9 L BUN 18 Creatinine 0.7 L Est GFR ( Amer) > 60 Est GFR (Non-Af Amer) > 60 Random Glucose 92 Calcium 7.8 L Total Bilirubin 6.8 H AST 82 H ALT 52 Alkaline Phosphatase 105 Total Protein 6.0 L Albumin 2.6 L Globulin 3.4 Albumin/Globulin Ratio 0.8 L Blood Type Antibody Screen Antibody Identification Crossmatch BBK History Checked Assessment & Plan (1) Thigh hematoma Assessment and Plan: 51-year-old male with right thigh pain and swelling for 2 days presented to the emergency room at [facility] on 01/13/17, denies trauma Has history of epilepsy with last seizure 2 days prior to admission as well, about the same time the swelling began Baseline liver dysfunction, spleen sequestration, hypo-coagulable state Plan: Right side: -At this point time there is no clinical evidence of compartment syndrome currently happening -There is no indication for emergent orthopedic surgery intervention -Even if he underwent irrigation and debridement of the hematoma and possible fasciotomy, he currently is not able to mount enough of a response to clot/ hypocoagulable state -CT angiogram shows that there is no active bleeder -Continue ice and elevation -Hematology consult recommendations appreciated,, continue recommendations including multiple transfusions as needed as well as judaism of normal coagulable state -continue serial H/H and monitor his vital signs -Will follow -out of bed and ambulation/activity as much as tolerated -Physical therapy = ambulation with assistance and fall precautions, weightbearing as tolerated -Please contact me with any questions, concerns, updates [phone] Thank you for allowing me to produce pain in the care of your patient John Richard MD Orthopedic Surgery Status: Acute
--- NOTE | 2017-01-16 16:57 | CP.PCM.PN ---
Subjective - Date & Time of Evaluation Date of Evaluation: 01/16/17 Time of Evaluation: 16:55 - Subjective Subjective: Thigh swelling and discomfort Objective - Vital Signs/Intake and Output Vital Signs (last 24 hours): Temp Pulse Resp BP Pulse Ox 98.9 F 87 12 107/59 L 96 01/16/17 15:58 01/16/17 15:58 01/16/17 15:58 01/16/17 15:58 01/16/17 15:58 Intake and Output: 01/16/17 01/16/17 06:59 18:59 Intake Total 1370 1455 Output Total 250 300 Balance 1120 1155 - Medications Medications: Current Medications Folic Acid (Folic Acid) 1 mg PO DAILY [facility] Last Admin: 01/16/17 12:31 Dose: 1 mg Sodium Chloride (Sodium Chloride 0.9%) 1,000 mls @ 75 mls/hr IV .[id number] [facility] Stop: 01/16/17 21:26 Last Admin: 01/16/17 11:26 Dose: 75 mls/hr Levetiracetam (Keppra) 500 mg PO BID [facility] Last Admin: 01/16/17 11:00 Dose: 500 mg Morphine Sulfate (Morphine) 2 mg IVP Q4 PRN PRN Reason: Pain, severe (8-10) Last Admin: 01/16/17 13:03 Dose: 2 mg Multivitamins/Vitamin C (Multi-Delyn Liquid) 5 ml PO DAILY [facility] Last Admin: 01/16/17 12:31 Dose: 5 ml Pantoprazole Sodium (Protonix Inj) 40 mg IVP Q12 [facility] Last Admin: 01/16/17 09:05 Dose: 40 mg Thiamine HCl (Vitamin B1 Tab) 100 mg PO DAILY [facility] Last Admin: 01/16/17 12:31 Dose: 100 mg Tramadol HCl (Ultram) 100 mg PO Q6 PRN PRN Reason: Pain, moderate (4-7) - Labs Labs: 01/16/17 09:30 01/16/17 09:30 PT 23.2 Seconds (9.8-13.1) H 01/16/17 09:30 INR 2.0 (0.9-1.2) H 01/16/17 09:30 APTT 40.6 Seconds (25.6-37.1) H 01/16/17 09:30 - Head Exam Head Exam: ATRAUMATIC - Eye Exam Eye Exam: Normal appearance - ENT Exam ENT Exam: Mucous Membranes Dry - Respiratory Exam Respiratory Exam: NORMAL BREATHING PATTERN - Cardiovascular Exam Cardiovascular Exam: +S1, +S2 - GI/Abdominal Exam GI & Abdominal Exam: Normal Bowel Sounds - Extremities Exam Extremities Exam: Pedal Edema Additional comments: right thigh swelling Assessment and Plan (1) Thigh hematoma Assessment & Plan: traumatic s/p PRBC, FFP, and platelets cont. to monitor pulses, surgical f/u Status: Acute (2) Anemia Assessment & Plan: thigh hemorrhage Status: Acute (3) Coagulopathy Assessment & Plan: liver disease Status: Acute (4) Thrombocytopenia Assessment & Plan: liver disease Status: Acute
--- NOTE | 2017-01-16 17:17 | CP.PCM.PN ---
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 He reports that his last seizure was 2 days ago. He denies trauma, states that 2 days ago he woke up in the morning after sleeping on a pocket filled with coins and resulting upper right thigh pain that continued to progressively worsen. He doesn't reject the possibility of injuring his After evaluation by ER staff and reviewed imaging was diagnosed with a large right thigh hematoma and admitted to the medical service for definitive treatment and management. Gen Surg consultation was placed and pt was seen as an inpt on 01/13/17 and deemed that there was no need for urgent surgical intervention at that time. An orthopedic surgery consultation was placed and I evaluated the pt as an inpt on 01/15/17. On admission, Hgb 8.4, continued to decrease and monitored. His baseline INR on admission was 2.0 without any blood thinner medication on board, baseline liver dysfunction and spleen sequestration. today, 01/15/17, he rates his pain as 4/10, he is able to lift his leg off the ground as a straight leg raise and able to ambulate with pain on the right lower extremity, he is able to move his toes and his ankles without pain. He denies any paresthesias or change in his sensory, he denies pain that is uncontrollable with medication. Review of imaging: x-rays right femur and hip: - for fracture/dislocation or uri issue CT right femur/thigh done 01/07 6S 17: There is infiltration and swelling of the anterior musculature of the right thigh including the quadriceps, rectus for Vlad, glasses intermedius and lateralis effacement of the fat and fascial planes with what appears as a small fluid collection in the inferior aspect of the distal thigh more prominent laterally. Rule out posttraumatic hemorrhage, infection or less likely an infiltrating tumor. Clinical correlation. CT angio thigh done 01/14/17: Large hematoma involving the right quadriceps muscle with edema and surrounding soft tissue. Hematoma involves the vastus lateralis and intermedius muscles. There is also a hematoma of the sartorius and rectus femoris distally. There is no evidence of active bleed. There is no drainable collection. 01/16/17 patient was transferred to ICU for closer monitoring as he has not responded to the multiple transfusions including packed red blood cells, fresh frozen plasma.. He states that today his pain has not worsened and he has been taking less pain medication. His pain is still rated 4/10 without medication and well controlled with pain medication. He is able to lift his leg off the ground/bad as a straight leg raise and able to ambulate with pain on the right lower extremity. He is able to move his toes and his ankles without pain. He denies any paresthesias or change in his sensory, he denies pain that is uncontrolled with medication. MRI of the thigh was done but still not read on 01/15/17. Same findings as CT on my review. CT abd/pelvis done 01/16/17 read as no acute intra-abdominal hemorrhage, tips in good position, persistent splenomegaly Objective - Vital Signs/Intake and Output Vital Signs (last 24 hours): Temp Pulse Resp BP Pulse Ox 98.9 F 87 12 107/59 L 96 01/16/17 15:58 01/16/17 15:58 01/16/17 15:58 01/16/17 15:58 01/16/17 15:58 Intake and Output: 01/16/17 01/16/17 06:59 18:59 Intake Total 1370 1455 Output Total 250 300 Balance 1120 1155 - Medications Medications: Current Medications Folic Acid (Folic Acid) 1 mg PO DAILY [facility] Last Admin: 01/16/17 12:31 Dose: 1 mg Sodium Chloride (Sodium Chloride 0.9%) 1,000 mls @ 75 mls/hr IV .[id number] [facility] Stop: 01/16/17 21:26 Last Admin: 01/16/17 11:26 Dose: 75 mls/hr Levetiracetam (Keppra) 500 mg PO BID [facility] Last Admin: 01/16/17 17:09 Dose: 500 mg Morphine Sulfate (Morphine) 2 mg IVP Q4 PRN PRN Reason: Pain, severe (8-10) Last Admin: 01/16/17 17:09 Dose: 2 mg Multivitamins/Vitamin C (Multi-Delyn Liquid) 5 ml PO DAILY [facility] Last Admin: 01/16/17 12:31 Dose: 5 ml Pantoprazole Sodium (Protonix Inj) 40 mg IVP Q12 [facility] Last Admin: 01/16/17 09:05 Dose: 40 mg Thiamine HCl (Vitamin B1 Tab) 100 mg PO DAILY [facility] Last Admin: 01/16/17 12:31 Dose: 100 mg Tramadol HCl (Ultram) 100 mg PO Q6 PRN PRN Reason: Pain, moderate (4-7) - Labs Labs: 01/16/17 09:30 01/16/17 09:30 PT 23.2 Seconds (9.8-13.1) H 01/16/17 09:30 INR 2.0 (0.9-1.2) H 01/16/17 09:30 APTT 40.6 Seconds (25.6-37.1) H 01/16/17 09:30 - Extremities Exam Additional comments: right lower extremity: stable/not worsening+ + Significant swelling at the thigh more so at the proximal and anterior aspect of the thigh, significant ecchymosis at the posterior lateral aspect of the thigh, thigh is swollen but still soft/compartments are not tense. no fluctuance, skin intact, no instability Able to tolerate passive range of motion without pain at the hip, knee, ankle and toes +5/5 motor strength hip flexion/extension, knee flexion/extension, ankle dorsiflexion/plantarflexion, toes up and down Sensory intact L2-S1, deep peroneal nerves as superficial peroneal nerve/tibial nerve/anterior femoral nerve 2+ dorsalis pedis pulse, 2+ popliteus pulse, 2+ femoral artery, brisk cap refill all toes with warm to touch left lower extremity: - TTP, - swelling/erythema/warmth, full range of motion at all joints without pain, - instability +5/5 motor strength hip flexion/extension, knee flexion/extension, ankle dorsiflexion/plantarflexion, toes up and down Sensory intact L2-S1, deep peroneal nerve/tibial nerve/superficial peroneal nerve 2+ dorsalis pedis pulse, brisk cap refill all toes Assessment and Plan (1) Thigh hematoma Assessment & Plan: 51-year-old male with right thigh pain and swelling for 2 days presented to the emergency room at [facility] on 01/13/17, denies trauma Has history of epilepsy with last seizure 2 days prior to admission as well, about the same time the swelling began Baseline liver dysfunction, spleen sequestration, hypo-coagulable state Plan: Right side: -At this point time there is no clinical evidence of compartment syndrome currently happening, despite the continued drop on H/H, his thigh is not worse and continues to display soft but swollen thigh compartments -he is able to tolerate passive motion of the hip/thigh musculature/knee/ ankle/ toes w/o pain, able to perform straight leg raise/ 5/5 motor hip/knee strength wo pain -There is no indication for emergent orthopedic surgery intervention -Even if he underwent irrigation and debridement of the hematoma and possible fasciotomy, he currently is not able to mount enough of a response to clot/ hypocoagulable state -I spent a long time today with the patient discussing his treatment options including possible surgery in the form of fasciotomy and irrigation debridement of the hematoma in his thigh, after discussing the risks, alternatives, benefits of surgery the patient adamantly refused surgery due to the hypocoagulable state that he currently has understanding that he is a high risk for bleeding -Once again patient adamantly refuses surgical intervention at this time -CT angiogram shows that there is no active bleeder -Continue ice and elevation -Hematology consult recommendations appreciated,, continue recommendations including multiple transfusions as needed as well as hindu of normal coagulable state -continue serial H/H and monitor his vital signs -Will follow -out of bed and ambulation/activity as much as tolerated -Physical therapy = ambulation with assistance and fall precautions, weightbearing as tolerated -Please contact me with any questions, concerns, updates [phone] Thank you for allowing me to produce pain in the care of your patient John Richard MD Orthopedic Surgery Status: Acute
[2017-01-16 20:53] LABS: MEAN CELL VOLUME 93.4 fl (80.0-94.0); MEAN CORPUSCULAR HEMOGLOBIN 31.5 pg (27.0-31.0); MEAN CORPUSCULAR HGB CONC 33.7 g/dL (33.0-37.0); RBC 2.17 Mil/uL (4.40-5.90); RED CELL DISTRIBUTION WIDTH 16.9 % (11.5-14.5); WHITE BLOOD COUNT 2.9 K/uL (4.8-10.8)
[2017-01-16 20:59] LABS: HEMOGLOBIN 6.8 g/dL (12.0-18.0)
--- NOTE | 2017-01-16 22:41 | CP.PCM.PCO ---
Physician Communication Note - Physician Communication Note Physician Communication Note: Patients H/H resulted 6.8/20.2 , VSS, will repeat H/H at 3:00, poss transfu
--- NOTE | 2017-01-17 01:30 | CP.PCM.PN ---
Subjective - Date & Time of Evaluation Date of Evaluation: 01/17/17 Time of Evaluation: 01:27 - Subjective Subjective: Patient received a unit of blood today. Hgb now 6.8. Objective - Vital Signs/Intake and Output Vital Signs (last 24 hours): Temp Pulse Resp BP Pulse Ox 98.3 F 98 H 10 L 100/64 96 01/17/17 00:00 01/17/17 00:00 01/17/17 00:00 01/17/17 00:00 01/17/17 00:00 Intake and Output: 01/16/17 01/17/17 18:59 06:59 Intake Total 1855 450 Output Total 400 300 Balance 1455 150 - Medications Medications: Current Medications Folic Acid (Folic Acid) 1 mg PO DAILY [facility] Last Admin: 01/16/17 12:31 Dose: 1 mg Levetiracetam (Keppra) 500 mg PO BID [facility] Last Admin: 01/16/17 17:09 Dose: 500 mg Morphine Sulfate (Morphine) 2 mg IVP Q4 PRN PRN Reason: Pain, severe (8-10) Last Admin: 01/17/17 01:09 Dose: 2 mg Multivitamins/Vitamin C (Multi-Delyn Liquid) 5 ml PO DAILY [facility] Last Admin: 01/16/17 12:31 Dose: 5 ml Pantoprazole Sodium (Protonix Inj) 40 mg IVP Q12 [facility] Last Admin: 01/16/17 21:06 Dose: 40 mg Thiamine HCl (Vitamin B1 Tab) 100 mg PO DAILY [facility] Last Admin: 01/16/17 12:31 Dose: 100 mg Tramadol HCl (Ultram) 100 mg PO Q6 PRN PRN Reason: Pain, moderate (4-7) - Labs Labs: 01/16/17 20:50 01/16/17 09:30 PT 23.2 Seconds (9.8-13.1) H 01/16/17 09:30 INR 2.0 (0.9-1.2) H 01/16/17 09:30 APTT 40.6 Seconds (25.6-37.1) H 01/16/17 09:30 - Head Exam Head Exam: ATRAUMATIC - Eye Exam Eye Exam: Normal appearance - ENT Exam ENT Exam: Mucous Membranes Moist - Neck Exam Neck Exam: Normal Inspection - Respiratory Exam Respiratory Exam: NORMAL BREATHING PATTERN - Cardiovascular Exam Cardiovascular Exam: REGULAR RHYTHM - GI/Abdominal Exam GI & Abdominal Exam: Soft, Normal Bowel Sounds. absent: Tenderness Assessment and Plan (1) Anemia Assessment & Plan: CT of abdomen shows no intraabdominal bleed. Hgb has risen slightly. Right thigh continues to be swollen and ecchymotic. Repeat Hgb scheduled soon. Status: Acute
--- NOTE | 2017-01-17 01:49 | PN ---
DATE: 01/16/2017 CRITICAL CARE PROGRESS NOTE TIME SPENT: 35 minutes. SUBJECTIVE: The patient is in ICU bed 434. The patient is seen and examined at the bedside. Events since admission reviewed. Events overnight noted. This is a 51-year-old male with history of alcohol abuse related liver cirrhosis, portal hypertension, status post TIPS in 2014, admitted with swelling and bruising right lower extremity. He reportedly _had seizure two days prior to the admission, compliance withseizure medication has not been clear. Noted CT of lower extremity showed infiltration changes and swelling of the anterior musculature including quadriceps muscle, rectus femoris vastus intermedius, lateralis and vastus medialis and possibly sartorius. Seen by general surgery in consult. No further intervention planned at this time. Status post transfusion of 4 units of packed red blood cells and 2 units of fresh frozen plasma. Remains stool guaiac positive, but no active melanotic stool. PAST MEDICAL, SURGICAL AND SOCIAL HISTORY: Reviewed. PHYSICAL EXAMINATION GENERAL: This morning alert and awake. Follows commands appropriate. No distress noted. Complaining of discomfort on the right lower extremity above right knee, able to move his leg, flexion and extension noted. VITAL SIGNS: Temperature 98.4, heart rate 85 and regular, respiratory rate 12, blood pressure 111/61, oxygen saturations 95% on room air. Intake 1370, output 270. Positive balance of 1120. Weight 165 pounds.. HEENT: Pupils reactive. Conjunctivae are pale. Sclerae anicteric. NECK: Supple. Trachea is center. CARDIOPULMONARY: Rhythm regular. S1 and S2 normal. No S3, S4 or gallop. LUNGS: Bilateral breath sounds diminished in intensity. ABDOMEN: Bowel sounds present, soft, nontender. EXTREMITIES: Right leg swollen. Firm to hard inconsistency. Ecchymosis noted on the lateral and anterior right thigh. Dorsalis pedis palpable. Equal in intensity. NEUROLOGY: No cranial nerve deficit. No motor deficit. No sensory impairment. Plantar flexor. LABORATORY DATA: WBC 3.1, hemoglobin 6.6, hematocrit 19.2, platelet count 52, neutrophils 56.8, lymphocytes 20.4, monocytes 15.2, eosinophils 6.9. PT 23.2. INR 2. PTT 40.6. SMA-7 sodium 142, potassium 3.7, chloride of 102, CO2 25, anion gap of 9, BUN 18, creatinine 0.7. Random glucose 92, calcium 7.8, total bilirubin 6.8, AST 82, ALT 52, total protein , albumin 2.6, amylase 81, lipase 91. Urinalysis; ketones negative, blood negative, RBC 12. Stool occult blood positive. Alcohol level 11. Microbiology; urine culture less than 1000 CFU/mL. CT abdomen and pelvis; no acute intraabdominal hemorrhage. TIPS test done in good position, persistent splenomegaly. MRI lower extremity report pending. Lower extremity angiography, large hematoma involving the right quadriceps muscle with edema in the surrounding soft tissue, the vastus lateralis, intermedius muscles, also hematoma of the sartorius and rectus femoris distally. No evidence of active bleed. X-ray of the hip and femur; no fracture noted. MEDICATIONS: Keppra 500 mg p.o. twice daily, morphine sulfate 2 mg IV q. 4 hours p.r.n. for pain, protonix_ 40 mg IV q. 12 hours, tramadol 100 mg p.o. q. 6 hours p.r.n. IMPRESSION: This is a 51-year-old male with history of ETOH dependent, ETOH related liver disease, thrombocytopenia, secondary to ETOH liver disease, splenomegaly, chronic coagulopathy, admitted with hematoma, involving right lower extremity and decline in hemoglobin status post transfusion 4 units packed red blood cells and 2 unit of fresh frozen plasm. Neuro: Remains alert, awake, follows command appropriate. No sign of alcohol withdrawal or delirium tremens noted. Will start prophylactically on thiamine, folic acid, multivitamin tablet, Ativan 2 mg every 6 hours p.r.n. for withdrawal or seizure. Cardia: Normotensive. No cardiac arrhythmias noted. Pulmonary: No shortness of breath. No pleural effusion noted. GI: ETOH related liver disease with elevated liver enzymes. Guaiac positive stool. Coagulopathy secondary to ETOH liver disease, status post from TIPS. CT abdomen shows no evidence of active intraabdominal hemorrhage. Renal function remains normal. Continue IV hydration. Hematology: Thrombocytopenia secondary to ETOH liver disease and hypersplenism. Noted to have hematoma status post transfusion of multiple blood products. Extremity: With diffuse hematoma involving the anterior and lateral groups of muscles. No evidence of compartment syndrome now. It is noted to have decrease in size of the circumference of the thigh seen by general surgery consult. Discussed with consult, and no surgical intervention plan at this time. Closely monitor for withdrawal seizure. Will continue with Keppra for seizure and lorazepam as needed. No anticoagulation, now for DVT prophylaxis due to high risk of bleeding. Encourage the patient for movement and early ambulation. Continue SCD on left leg. Currently, n.p.o. by the hematology on consult. We will discuss with and will initiate feeding as once cleared by hematology. Lincoln Gutierrez MD MTDD
[2017-01-17 03:19] LABS: MEAN CELL VOLUME 91.8 fl (80.0-94.0); MEAN CORPUSCULAR HEMOGLOBIN 32.5 pg (27.0-31.0); MEAN CORPUSCULAR HGB CONC 35.5 g/dL (33.0-37.0); RBC 2.01 Mil/uL (4.40-5.90); RED CELL DISTRIBUTION WIDTH 16.6 % (11.5-14.5); WHITE BLOOD COUNT 2.2 K/uL (4.8-10.8)
[2017-01-17 03:23] LABS: ALBUMIN 2.5 g/dL (3.5-5.0); ALT/SGPT 48 U/L (21-72); AST/SGOT 80 U/L (17-59); BLOOD UREA NITROGEN 17 mg/dl (9-20); CALCIUM 7.7 mg/dL (8.4-10.2); GFR AFRICAN-AMERICAN > 60; GFR NON-AFRICAN AMERICAN > 60
[2017-01-17 03:24] LABS: ALB/GLOB RATIO 0.8 (1.0-2.1)
[2017-01-17 03:27] LABS: HEMOGLOBIN 6.5 g/dL (12.0-18.0)
[2017-01-17] MEDS: Multiple Vitamins Oral Solution PO SCH (08:30)
[2017-01-17 10:36] LABS: MAGNESIUM 1.4 MG/DL (1.6-2.3)
[2017-01-17] MEDS ORDERED: Phytonadione 10 mg/ml Inj (Adult) IVPB ONE (10:56)
[2017-01-17] MEDS ORDERED: Phytonadione 10 MG in Sodium Chloride 0.9% 50 ML IV ONE (11:30)
--- NOTE | 2017-01-17 12:52 | CP.PCM.PN ---
Subjective - Date & Time of Evaluation Date of Evaluation: 01/17/17 Time of Evaluation: 08:00 - Subjective Subjective: GENERAL SURGERY PROGRESS NOTE FOR DR. FONTANEZ Patient seen and examined at bedside in the ICU. This AM, his Hgb was 6.5 and he is currently being transfused another unit PRBC. He denies numbness or tingling. He has decreased ROM but is able to move the knee joint some. He reports pain in the thigh area. He has his leg elevated on a pillow. Objective - Vital Signs/Intake and Output Vital Signs (last 24 hours): Temp Pulse Resp BP Pulse Ox 98.2 F 87 9 L 98/53 L 100 01/17/17 12:00 01/17/17 12:00 01/17/17 12:00 01/17/17 12:00 01/17/17 12:00 Intake and Output: 01/17/17 01/17/17 06:59 18:59 Intake Total 750 820 Output Total 700 140 Balance 50 680 - Medications Medications: Current Medications Folic Acid (Folic Acid) 1 mg PO DAILY [facility] Last Admin: 01/17/17 08:29 Dose: 1 mg Iron Sucrose 100 mg/ Sodium (Chloride) 105 mls @ 105 mls/hr IVPB DAILY [facility] Levetiracetam (Keppra) 500 mg PO BID [facility] Last Admin: 01/17/17 08:29 Dose: 500 mg Morphine Sulfate (Morphine) 2 mg IVP Q4 PRN PRN Reason: Pain, severe (8-10) Last Admin: 01/17/17 09:03 Dose: 2 mg Multivitamins/Vitamin C (Multi-Delyn Liquid) 5 ml PO DAILY [facility] Last Admin: 01/17/17 08:30 Dose: 5 ml Pantoprazole Sodium (Protonix Inj) 40 mg IVP Q12 [facility] Last Admin: 01/17/17 08:30 Dose: 40 mg Thiamine HCl (Vitamin B1 Tab) 100 mg PO DAILY [facility] Last Admin: 01/17/17 08:30 Dose: 100 mg Tramadol HCl (Ultram) 100 mg PO Q6 PRN PRN Reason: Pain, moderate (4-7) Last Admin: 01/17/17 11:30 Dose: 100 mg - Labs Labs: 01/17/17 03:00 01/17/17 03:00 PT 23.2 Seconds (9.8-13.1) H 01/16/17 09:30 INR 2.0 (0.9-1.2) H 01/16/17 09:30 APTT 40.6 Seconds (25.6-37.1) H 01/16/17 09:30 - Constitutional Appears: Non-toxic, No Acute Distress, Chronically Ill - Eye Exam Eye Exam: Scleral icterus - Respiratory Exam Respiratory Exam: NORMAL BREATHING PATTERN. absent: Respiratory Distress - Cardiovascular Exam Cardiovascular Exam: +S1, +S2 - GI/Abdominal Exam GI & Abdominal Exam: Soft. absent: Tenderness - Extremities Exam Additional comments: Palpable pulses in right DP and PT - Neurological Exam Neurological Exam: Alert, Awake - Psychiatric Exam Psychiatric exam: Normal Affect, Normal Mood - Skin Skin Exam: Dry, Warm Additional comments: Right thigh hematoma, tender, edematous, warm Assessment and Plan - Assessment and Plan (Free Text) Assessment: 51yo M with Right anterior thigh hematoma - Hgb 6.5 this AM, being transfused another unit and going to get iron infusions - Palpable DP and PT pulses - Ortho following: no surgical intervention - Right leg elevation and encouraged ROM of knee joint - No signs of compartment syndrome. - No general surgical intervention needed. - Will continue to monitor H&H - Transfuse as needed - Discussed plan with Dr. Washington Weir PGY-3
--- NOTE | 2017-01-17 14:24 | CP.PCM.PN ---
Subjective - Date & Time of Evaluation Date of Evaluation: 01/17/17 Time of Evaluation: 11:00 - Subjective Subjective: [birth year] 51-year-old male with PMH = alcohol liver cirrhosis/liver failure with history of TIPS procedure 2015, epilepsy, presented to the emergency room at [facility] on 01/13/17 with right thigh pain for 2 days. He reports that his last seizure was 2 days ago. He denies trauma, states that 2 days ago he woke up in the morning after sleeping on a pocket filled with coins and resulting upper right thigh pain that continued to progressively worsen. He doesn't reject the possibility of injuring his After evaluation by ER staff and reviewed imaging was diagnosed with a large right thigh hematoma and admitted to the medical service for definitive treatment and management. Gen Surg consultation was placed and pt was seen as an inpt on 01/13/17 and deemed that there was no need for urgent surgical intervention at that time. An orthopedic surgery consultation was placed and I evaluated the pt as an inpt on 01/15/17. On admission, Hgb 8.4, continued to decrease and monitored. His baseline INR on admission was 2.0 without any blood thinner medication on board, baseline liver dysfunction and spleen sequestration. today, 01/15/17, he rates his pain as 4/10, he is able to lift his leg off the ground as a straight leg raise and able to ambulate with pain on the right lower extremity, he is able to move his toes and his ankles without pain. He denies any paresthesias or change in his sensory, he denies pain that is uncontrollable with medication. Review of imaging: x-rays right femur and hip: - for fracture/dislocation or uri issue CT right femur/thigh done 01/07 6S 17: There is infiltration and swelling of the anterior musculature of the right thigh including the quadriceps, rectus for Vlad, glasses intermedius and lateralis effacement of the fat and fascial planes with what appears as a small fluid collection in the inferior aspect of the distal thigh more prominent laterally. Rule out posttraumatic hemorrhage, infection or less likely an infiltrating tumor. Clinical correlation. CT angio thigh done 01/14/17: Large hematoma involving the right quadriceps muscle with edema and surrounding soft tissue. Hematoma involves the vastus lateralis and intermedius muscles. There is also a hematoma of the sartorius and rectus femoris distally. There is no evidence of active bleed. There is no drainable collection. 01/16/17 patient was transferred to ICU for closer monitoring as he has not responded to the multiple transfusions including packed red blood cells, fresh frozen plasma.. He states that today his pain has not worsened and he has been taking less pain medication. His pain is still rated 4/10 without medication and well controlled with pain medication. He is able to lift his leg off the ground/bad as a straight leg raise and able to ambulate with pain on the right lower extremity. He is able to move his toes and his ankles without pain. He denies any paresthesias or change in his sensory, he denies pain that is uncontrolled with medication. MRI of the thigh was done but still not read on 01/15/17. Same findings as CT on my review. CT abd/pelvis done 01/16/17 read as no acute intra-abdominal hemorrhage, tips in good position, persistent splenomegaly 01/17/17 Pt seen today, he reports that his thigh is unchanged, pains still rated 4/10 at rest without pain medication and well controlled with pain medication. He is able to lift his leg off the ground/bad as a straight leg raise and able to ambulate with pain on the right lower extremity. He is able to move his toes and his ankles without pain. He denies any paresthesias or change in his sensory, he denies pain that is uncontrolled with medication. Despite multiple transfusions over the weekend, his Hgb still hovering around 6.6 but the thigh is unchanged and he does not feel increasing size or pressure. Objective - Vital Signs/Intake and Output Vital Signs (last 24 hours): Temp Pulse Resp BP Pulse Ox 98.2 F 87 9 L 98/53 L 100 01/17/17 12:00 01/17/17 12:00 01/17/17 12:00 01/17/17 12:00 01/17/17 12:00 Intake and Output: 01/17/17 01/17/17 06:59 18:59 Intake Total 750 820 Output Total 700 140 Balance 50 680 - Medications Medications: Current Medications Folic Acid (Folic Acid) 1 mg PO DAILY REPLACED BY [facility] Last Admin: 01/17/17 08:29 Dose: 1 mg Iron Sucrose 100 mg/ Sodium (Chloride) 105 mls @ 105 mls/hr IVPB DAILY REPLACED BY [facility] Levetiracetam (Keppra) 500 mg PO BID REPLACED BY [facility] Last Admin: 01/17/17 08:29 Dose: 500 mg Morphine Sulfate (Morphine) 2 mg IVP Q4 PRN PRN Reason: Pain, severe (8-10) Last Admin: 01/17/17 13:21 Dose: 2 mg Multivitamins/Vitamin C (Multi-Delyn Liquid) 5 ml PO DAILY REPLACED BY [facility] Last Admin: 01/17/17 08:30 Dose: 5 ml Pantoprazole Sodium (Protonix Inj) 40 mg IVP Q12 REPLACED BY [facility] Last Admin: 01/17/17 08:30 Dose: 40 mg Thiamine HCl (Vitamin B1 Tab) 100 mg PO DAILY REPLACED BY [facility] Last Admin: 01/17/17 08:30 Dose: 100 mg Tramadol HCl (Ultram) 100 mg PO Q6 PRN PRN Reason: Pain, moderate (4-7) Last Admin: 01/17/17 11:30 Dose: 100 mg - Labs Labs: 01/17/17 03:00 01/17/17 03:00 PT 23.2 Seconds (9.8-13.1) H 01/16/17 09:30 INR 2.0 (0.9-1.2) H 01/16/17 09:30 APTT 40.6 Seconds (25.6-37.1) H 01/16/17 09:30 - Extremities Exam Additional comments: right lower extremity: stable/not worsening+ + Significant swelling at the thigh more so at the proximal and anterior aspect of the thigh, significant ecchymosis at the posterior lateral aspect of the thigh, thigh is swollen but still soft/compartments are not tense. no fluctuance, skin intact, no instability Able to tolerate passive range of motion without pain at the hip, knee, ankle and toes +5/5 motor strength hip flexion/extension, knee flexion/extension, ankle dorsiflexion/plantarflexion, toes up and down Sensory intact L2-S1, deep peroneal nerves as superficial peroneal nerve/tibial nerve/anterior femoral nerve 2+ dorsalis pedis pulse, 2+ popliteus pulse, 2+ femoral artery, brisk cap refill all toes with warm to touch left lower extremity: - TTP, - swelling/erythema/warmth, full range of motion at all joints without pain, - instability +5/5 motor strength hip flexion/extension, knee flexion/extension, ankle dorsiflexion/plantarflexion, toes up and down Sensory intact L2-S1, deep peroneal nerve/tibial nerve/superficial peroneal nerve 2+ dorsalis pedis pulse, brisk cap refill all toes Assessment and Plan (1) Thigh hematoma Assessment & Plan: 51-year-old male with right thigh pain and swelling for 2 days presented to the emergency room at [facility] on 01/13/17, denies trauma Has history of epilepsy with last seizure 2 days prior to admission as well, about the same time the swelling began Baseline liver dysfunction, spleen sequestration, hypo-coagulable state Plan: Right side: -At this point time there is no clinical evidence of compartment syndrome currently happening, despite the continued drop on H/H, his thigh is not worse and continues to display soft but swollen thigh compartments -he is able to tolerate passive motion of the hip/thigh musculature/knee/ ankle/ toes w/o pain, able to perform straight leg raise/ 5/5 motor hip/knee strength w /o pain -There is no indication for emergent orthopedic surgery intervention -Even if he underwent irrigation and debridement of the hematoma and possible fasciotomy, he currently is not able to mount enough of a response to clot/ hypocoagulable state -I spent a long time today with the patient discussing his treatment options including possible surgery in the form of fasciotomy and irrigation debridement of the hematoma in his thigh, after discussing the risks, alternatives, benefits of surgery the patient adamantly refused surgery due to the hypocoagulable state that he currently has understanding that he is a high risk for bleeding -Once again patient adamantly refuses surgical intervention at this time -CT angiogram shows that there is no active bleeder -Continue ice and elevation -Hematology consult recommendations appreciated,, continue recommendations including multiple transfusions as needed as well as taoist of normal coagulable state -continue serial H/H and monitor his vital signs -Will follow -out of bed and ambulation/activity as much as tolerated -Physical therapy = ambulation with assistance and fall precautions, weightbearing as tolerated -Please contact me with any questions, concerns, updates [phone] Thank you for allowing me to produce pain in the care of your patient John Richard MD Orthopedic Surgery Status: Acute
--- NOTE | 2017-01-17 14:24 | PN ---
TIME SPENT: 35 minutes. SUBJECTIVE: The patient in ICU, bed 434. The patient is seen and examined at the bedside. Events since admission are reviewed. Overnight, normotensive; afebrile; telemetry sinus rhythm; reduced swelling of right thigh; complaining of pain on ambulation and on flexion and extension of ankle. No dizziness, headache, shortness of breath, chest pain, palpitation. No abdominal pain. No melanotic stool. PHYSICAL EXAMINATION: VITAL SIGNS: Temperature 98.3, heart rate 98, no orthostasis, blood pressure 99/47, mean arterial pressure 64, respiratory rate 15, thoracoabdominal. Saturation 98% on room air. Intake 2605, output 1100, positive balance 1505. Weight 165 pounds. HEAD, EYES, EARS, NOSE, AND THROAT: Pupils are reactive. Conjunctivae pale. Sclerae anicteric. NECK: Supple. CHEST: Bilateral breath sounds. Clear to auscultation. HEART: Rhythm regular. S1 and S2 normal. No audible murmur. ABDOMEN: Bowel sounds present. No distention. Ecchymosis on the right lateral flank area. EXTREMITIES: Ecchymosis right thigh. Circumference of right thigh reduced compared to yesterday. Dorsalis pedis palpable, equal in intensity. NEUROLOGIC: Oriented to name, place, and time. No cranial nerve deficit. No motor deficit. Normal tone. Sensory system was normal. CURRENT MEDICATIONS: Folic acid 1 mg daily, Keppra 500 mg p.o. twice daily, morphine sulfate 2 mg IV q. 4 p.r.n. for pain, multivitamin 5 mL p.o. daily, Protonix 40 IV q. 12, thiamin 100 mg p.o. daily. LABORATORY DATA: WBC 2.2, hemoglobin 6.5, hematocrit 18.4, platelet count 39. PT 23.2. INR 2. PTT 40.6. SMA-7 sodium 134, potassium 3.8, chloride of 104, CO2 26, blood urea nitrogen 17, creatinine 0.7, calcium 7.7, total bilirubin 7.1, AST 80, ALT 48, alkaline phosphatase 111, total protein 5.8, albumin 2.5, amylase 81, lipase 91. Urinalysis: RBC 12, microscopic WBC 5. Stool occult blood positive. Microbiology: No culture reported. IMPRESSION: NEURO: Alert, oriented x3. [place] coma scale equal to 15. No evidence of encephalopathy. CARDIAC: Normotensive. Normal sinus rhythm. PULMONARY: No acute issues. GASTROINTESTINAL: Guaiac positive stool. EtOH related liver disease, cirrhosis, status post transjugular intrahepatic portosystemic shunt, coagulopathy. HEMATOLOGY: Anemia secondary to acute blood loss/hematoma right thigh. Hemoglobin status post transfusion 4 units of packed cells and fresh frozen plasma. *------* unit of packed red blood cells. We will start INR infusion daily and then followed by *------* to increase hemoglobin count. RENAL: Remains stable. ENDOCRINOLOGY: Random glucose 101, keep head-of-bed 40 degree up. Continue GI prophylaxis, deep vein prophylaxis. Heparin on hold secondary to increased risk of bleeding and due to right thigh hematoma. Continue SCD. Encourage early ambulation. Lincoln Gutierrez MD
--- NOTE | 2017-01-17 16:03 | CP.PCM.PN ---
Subjective - Date & Time of Evaluation Date of Evaluation: 01/17/17 Time of Evaluation: 08:00 - Subjective Subjective: Patient was seen and evaluated at bedside, was observed laying in bed, not in acute distress. Reports no changes in pain in the right lower extremity. Right lower extremity bruise noticed to be improving on the lateral leg, but appears to have moved more up and posteriorly. Also of note, the lower half of pt's RLE is now more swollen than before, pulses unchanged. Pt denies parasthesias, there is no pallor, nor pulselessness, nor poikilothermia. Pt's pain is controlled, no new complaints. Pt received 1U PRBC and 1U FFP yesterday. Denies chest pain, sob, nausea, vomiting. Objective - Vital Signs/Intake and Output Vital Signs (last 24 hours): Temp Pulse Resp BP Pulse Ox 98.2 F 87 12 112/86 100 01/17/17 12:00 01/17/17 14:00 01/17/17 14:00 01/17/17 14:00 01/17/17 14:00 Intake and Output: 01/17/17 01/17/17 06:59 18:59 Intake Total 750 1170 Output Total 700 240 Balance 50 930 - Medications Medications: Current Medications Folic Acid (Folic Acid) 1 mg PO DAILY [facility] Last Admin: 01/17/17 08:29 Dose: 1 mg Iron Sucrose 100 mg/ Sodium (Chloride) 105 mls @ 105 mls/hr IVPB DAILY [facility] Levetiracetam (Keppra) 500 mg PO BID [facility] Last Admin: 01/17/17 08:29 Dose: 500 mg Morphine Sulfate (Morphine) 2 mg IVP Q4 PRN PRN Reason: Pain, severe (8-10) Last Admin: 01/17/17 13:21 Dose: 2 mg Multivitamins/Vitamin C (Multi-Delyn Liquid) 5 ml PO DAILY [facility] Last Admin: 01/17/17 08:30 Dose: 5 ml Pantoprazole Sodium (Protonix Inj) 40 mg IVP Q12 [facility] Last Admin: 01/17/17 08:30 Dose: 40 mg Thiamine HCl (Vitamin B1 Tab) 100 mg PO DAILY [facility] Last Admin: 01/17/17 08:30 Dose: 100 mg Tramadol HCl (Ultram) 100 mg PO Q6 PRN PRN Reason: Pain, moderate (4-7) Last Admin: 01/17/17 11:30 Dose: 100 mg - Labs Labs: 01/17/17 03:00 01/17/17 03:00 PT 23.2 Seconds (9.8-13.1) H 01/16/17 09:30 INR 2.0 (0.9-1.2) H 01/16/17 09:30 APTT 40.6 Seconds (25.6-37.1) H 01/16/17 09:30 - Constitutional Appears: Non-toxic - Head Exam Head Exam: NORMAL INSPECTION - Eye Exam Eye Exam: EOMI - ENT Exam ENT Exam: Mucous Membranes Moist - Respiratory Exam Respiratory Exam: Clear to Ausculation Bilateral, NORMAL BREATHING PATTERN. absent: Wheezes - Cardiovascular Exam Cardiovascular Exam: REGULAR RHYTHM, +S1, +S2 - GI/Abdominal Exam GI & Abdominal Exam: Normal Bowel Sounds - Extremities Exam Extremities Exam: Pedal Edema, Tenderness Additional comments: Right lower extremity is still very swollen, tender on palpation. Pulses are present and unchanged. Bruise on lateral thigh improving. - Neurological Exam Neurological Exam: Alert, Awake, Oriented x3 Assessment and Plan - Assessment and Plan (Free Text) Assessment: 51 yo M with PMH liver cirrhosis secondary to alcohol abuse, seizures admitted for right thigh hematoma. Pt is still actively bleeding, drops in H/H being addressed with transfusions of PRBC, FFP. Pt is being monitored for compartment syndrome. No surgical intervention at this time. Plan: 1) Right Thigh Hematoma -CT on admission: No fracture. Infiltration and swelling of anterior musculature -MRI with constrast done 01/15/17- large liquefying quadriceps hematoma -General surgery and Ortho (Dr. Richard) both state since there is no evidence of compartment syndrome, there is no indication for surgical intervention -It Technician closely following case -Monitor for compartment syndrome -Continue to ice and elevate extremity -Pain control 2) Anemia, unspecified -Hgb 6.5 from yesterday 6.8 (6.8 was after transfusions of 1 unit PRBC and 1 unit FFP yesterday) -Scheduled to receive 1U PRBC, 1 U FFP and 10 mg Vit K (in 50 cc normal saline, run over 30 min) today, as per hematology consult (Dr. Mack) -Monitor H/H, PT/INR/PTT -Hematology following case closely -Fecal occult stool positive -GI consult placed -CT abdomen and pelvis does not show any evidence of hemorrage, GI did administer DDAVP 3) History of seizures, last episode 2 days prior to admission -Continue home meds Keppra -Keppra level ordered, f/u results -Monitor for seizures 4) Alcohol Abuse -CIWA score 1 -Alcohol level was 11 at admission -Monitor for withdrawal 5) DVT prophylaxis SCDs, no anticoagulation
--- NOTE | 2017-01-17 18:40 | CP.PCM.PN ---
Subjective - Date & Time of Evaluation Date of Evaluation: 01/17/17 Time of Evaluation: 16:00 - Subjective Subjective: No complaints Right thigh swelling Objective - Vital Signs/Intake and Output Vital Signs (last 24 hours): Temp Pulse Resp BP Pulse Ox 98.1 F 85 10 L 98/57 L 100 01/17/17 16:00 01/17/17 18:00 01/17/17 18:00 01/17/17 18:00 01/17/17 18:00 Intake and Output: 01/17/17 01/17/17 06:59 18:59 Intake Total 750 1900 Output Total 700 540 Balance 50 1360 - Medications Medications: Current Medications Folic Acid (Folic Acid) 1 mg PO DAILY [facility] Last Admin: 01/17/17 08:29 Dose: 1 mg Iron Sucrose 100 mg/ Sodium (Chloride) 105 mls @ 105 mls/hr IVPB DAILY [facility] Last Admin: 01/17/17 16:02 Dose: 105 mls/hr Levetiracetam (Keppra) 500 mg PO BID [facility] Last Admin: 01/17/17 16:03 Dose: 500 mg Morphine Sulfate (Morphine) 2 mg IVP Q4 PRN PRN Reason: Pain, severe (8-10) Last Admin: 01/17/17 17:44 Dose: 2 mg Multivitamins/Vitamin C (Multi-Delyn Liquid) 5 ml PO DAILY [facility] Last Admin: 01/17/17 08:30 Dose: 5 ml Pantoprazole Sodium (Protonix Inj) 40 mg IVP Q12 [facility] Last Admin: 01/17/17 08:30 Dose: 40 mg Thiamine HCl (Vitamin B1 Tab) 100 mg PO DAILY [facility] Last Admin: 01/17/17 08:30 Dose: 100 mg Tramadol HCl (Ultram) 100 mg PO Q6 PRN PRN Reason: Pain, moderate (4-7) Last Admin: 01/17/17 17:16 Dose: 100 mg - Labs Labs: 01/17/17 03:00 01/17/17 03:00 PT 23.2 Seconds (9.8-13.1) H 01/16/17 09:30 INR 2.0 (0.9-1.2) H 01/16/17 09:30 APTT 40.6 Seconds (25.6-37.1) H 07/29/17 09:30 - Head Exam Head Exam: ATRAUMATIC - Eye Exam Eye Exam: Normal appearance - ENT Exam ENT Exam: Mucous Membranes Dry - Respiratory Exam Respiratory Exam: NORMAL BREATHING PATTERN - Cardiovascular Exam Cardiovascular Exam: +S1, +S2 - GI/Abdominal Exam GI & Abdominal Exam: Normal Bowel Sounds - Extremities Exam Additional comments: right thigh swelling Assessment and Plan (1) Thigh hematoma Assessment & Plan: traumatic s/p PRBC transfusion, plt, FFP, and vit k 1u PRBC, 1 bag plt, 1 unit FFP today repeat CBC Status: Acute (2) Anemia Assessment & Plan: thigh bleeding transfusion support PRN Status: Acute (3) Coagulopathy Assessment & Plan: liver disease Status: Acute (4) Thrombocytopenia Assessment & Plan: liver disease Status: Acute
[2017-01-17 20:09] LABS: BASO % 0.8 % (0.0-2.0); EOS # 0.1 K/uL (0.0-0.7); EOS % 5.3 % (0.0-4.0); HEMOGLOBIN 6.8 g/dL (12.0-18.0); LYMPH # 0.5 K/uL (1.0-4.3); LYMPH % 19.1 % (20.0-40.0); MEAN CELL VOLUME 94.3 fl (80.0-94.0); MEAN CORPUSCULAR HEMOGLOBIN 32.3 pg (27.0-31.0); MEAN CORPUSCULAR HGB CONC 34.3 g/dL (33.0-37.0); MEAN PLATELET VOLUME 8.1 fl (7.2-11.7); MONO # 0.5 K/uL (0.0-0.8); MONO % 18.5 % (0.0-10.0); NEUT # 1.5 K/uL (1.8-7.0); NEUT % 56.3 % (50.0-75.0); NRBC % 0.1 % (0.0-0.0); RBC 2.11 Mil/uL (4.40-5.90); RED CELL DISTRIBUTION WIDTH 16.8 % (11.5-14.5); WHITE BLOOD COUNT 2.6 K/uL (4.8-10.8)
[2017-01-18 05:27] LABS: HEMOGLOBIN 7.1 g/dL (12.0-18.0); MEAN CELL VOLUME 95.1 fl (80.0-94.0); MEAN CORPUSCULAR HEMOGLOBIN 32.2 pg (27.0-31.0); MEAN CORPUSCULAR HGB CONC 33.8 g/dL (33.0-37.0); RBC 2.21 Mil/uL (4.40-5.90); RED CELL DISTRIBUTION WIDTH 17.3 % (11.5-14.5); WHITE BLOOD COUNT 3.4 K/uL (4.8-10.8)
[2017-01-18 05:30] LABS: BLOOD UREA NITROGEN 12 mg/dl (9-20); GFR AFRICAN-AMERICAN > 60; GFR NON-AFRICAN AMERICAN > 60
--- NOTE | 2017-01-18 08:16 | CP.PCM.PN ---
Subjective - Date & Time of Evaluation Date of Evaluation: 01/18/17 Time of Evaluation: 07:30 - Subjective Subjective: Patient was seen and evaluated at bedside, laying comfortably in bed, not in acute distress. He reports no changes regarding the pain in his extremity, and was interested to know his latest hemoglobin level. Right lower extremity ecchymosis improving, however ecchymosis persistent on pt's hip and flank as yesterday. Swelling of extremity is unchanged from yesterday; pulses unchanged. Pt denies parasthesias, there is no pallor, nor pulselessness, nor poikilothermia. Pt's pain is controlled, no new complaints. Pt received 1U PRBC , 1U FFP, and 10mg Vitamin K yesterday. Denies chest pain, sob, nausea, vomiting. Objective - Vital Signs/Intake and Output Vital Signs (last 24 hours): Temp Pulse Resp BP Pulse Ox 98.2 F 92 H 18 122/68 94 L 01/18/17 04:00 01/18/17 06:00 01/18/17 06:00 01/18/17 06:00 01/18/17 06:00 Intake and Output: 01/18/17 01/18/17 06:59 18:59 Intake Total 511 Output Total 550 Balance -39 - Medications Medications: Current Medications Folic Acid (Folic Acid) 1 mg PO DAILY [facility] Last Admin: 01/17/17 08:29 Dose: 1 mg Iron Sucrose 100 mg/ Sodium (Chloride) 105 mls @ 105 mls/hr IVPB DAILY [facility] Last Admin: 01/17/17 16:02 Dose: 105 mls/hr Levetiracetam (Keppra) 500 mg PO BID [facility] Last Admin: 01/17/17 16:03 Dose: 500 mg Morphine Sulfate (Morphine) 2 mg IVP Q4 PRN PRN Reason: Pain, severe (8-10) Last Admin: 01/18/17 04:08 Dose: 2 mg Multivitamins/Vitamin C (Multi-Delyn Liquid) 5 ml PO DAILY [facility] Last Admin: 01/17/17 08:30 Dose: 5 ml Pantoprazole Sodium (Protonix Inj) 40 mg IVP Q12 [facility] Last Admin: 01/17/17 21:49 Dose: 40 mg Thiamine HCl (Vitamin B1 Tab) 100 mg PO DAILY [facility] Last Admin: 01/17/17 08:30 Dose: 100 mg Tramadol HCl (Ultram) 100 mg PO Q6 PRN PRN Reason: Pain, moderate (4-7) Last Admin: 01/18/17 05:36 Dose: 100 mg - Labs Labs: 01/18/17 04:35 01/18/17 04:35 PT 23.2 Seconds (9.8-13.1) H 01/16/17 09:30 INR 2.0 (0.9-1.2) H 01/16/17 09:30 APTT 40.6 Seconds (25.6-37.1) H 01/16/17 09:30 - Constitutional Appears: Non-toxic - Head Exam Head Exam: ATRAUMATIC - Eye Exam Eye Exam: EOMI - ENT Exam ENT Exam: Mucous Membranes Moist - Respiratory Exam Respiratory Exam: Clear to Ausculation Bilateral, NORMAL BREATHING PATTERN - Cardiovascular Exam Cardiovascular Exam: REGULAR RHYTHM, +S1, +S2 - GI/Abdominal Exam GI & Abdominal Exam: Normal Bowel Sounds - Extremities Exam Extremities Exam: Pedal Edema, Tenderness - Back Exam Additional comments: right lower extremity still swollen, tender on palpation - Neurological Exam Neurological Exam: Alert, Awake Assessment and Plan - Assessment and Plan (Free Text) Assessment: 51 yo M with PMH liver cirrhosis secondary to alcohol abuse, seizures admitted for right thigh hematoma. Pt is being monitored for active bleeding, drops in H/ H addressed lwith transfusions of PRBC, FFP, Vit K. H/H stable since yesterday. Pt is being monitored for compartment syndrome. No surgical intervention at this time. Plan: 1) Right Thigh Hematoma -CT on admission: No fracture. Infiltration and swelling of anterior musculature -MRI with constrast done 01/15/17- large quadriceps hematoma -General surgery and Ortho (Dr. Richard) both state since there is no evidence of compartment syndrome, there is no indication for surgical intervention -Grease Renderer closely following case -Monitor for compartment syndrome -Continue to ice and elevate extremity -Pain control 2) Anemia, unspecified -Hgb 7.1 from yesterday 6.5 -Yesterday pt 1U PRBC, 1 U FFP and 10 mg Vit K (in 50 cc normal saline, run over 30 min) as per hematology consult (Dr. Mack) -PT 22.9, INR 2.0 -Monitor H/H and coags -Hematology following case closely -Fecal occult stool positive -GI consult placed -CT abdomen and pelvis does not show any evidence of hemorrage, GI did administer DDAVP 3) History of seizures, last episode 2 days prior to admission -Continue home meds Keppra -Keppra level ordered, f/u results -Monitor for seizures 4) Alcohol Abuse -CIWA score 1 -Alcohol level was 11 at admission -Monitor for withdrawal 5) DVT prophylaxis SCDs, no anticoagulation
[2017-01-18] MEDS: Multiple Vitamins Oral Solution PO SCH (08:30)
--- NOTE | 2017-01-18 08:33 | CP.PCM.PN ---
Subjective - Date & Time of Evaluation Date of Evaluation: 01/18/17 Time of Evaluation: 08:31 - Subjective Subjective: Surgery: Dr. Miller Pt seen and examined. Resting in bed. Still has pain in R thigh. S/P 1U PRBC and 1U FFP yesterday. Objective - Vital Signs/Intake and Output Vital Signs (last 24 hours): Temp Pulse Resp BP Pulse Ox 98.2 F 92 H 18 122/68 94 L 01/18/17 04:00 01/18/17 06:00 01/18/17 06:00 01/18/17 06:00 01/18/17 06:00 Intake and Output: 01/18/17 01/18/17 06:59 18:59 Intake Total 511 Output Total 550 Balance -39 - Medications Medications: Current Medications Folic Acid (Folic Acid) 1 mg PO DAILY [facility] Last Admin: 01/18/17 08:29 Dose: 1 mg Iron Sucrose 100 mg/ Sodium (Chloride) 105 mls @ 105 mls/hr IVPB DAILY [facility] Last Admin: 01/17/17 16:02 Dose: 105 mls/hr Levetiracetam (Keppra) 500 mg PO BID [facility] Last Admin: 01/18/17 08:29 Dose: 500 mg Morphine Sulfate (Morphine) 2 mg IVP Q4 PRN PRN Reason: Pain, severe (8-10) Last Admin: 01/18/17 08:27 Dose: 2 mg Multivitamins/Vitamin C (Multi-Delyn Liquid) 5 ml PO DAILY [facility] Last Admin: 01/18/17 08:30 Dose: 5 ml Pantoprazole Sodium (Protonix Inj) 40 mg IVP Q12 [facility] Last Admin: 01/18/17 08:30 Dose: 40 mg Thiamine HCl (Vitamin B1 Tab) 100 mg PO DAILY [facility] Last Admin: 01/18/17 08:29 Dose: 100 mg Tramadol HCl (Ultram) 100 mg PO Q6 PRN PRN Reason: Pain, moderate (4-7) Last Admin: 01/18/17 05:36 Dose: 100 mg - Labs Labs: 01/18/17 04:35 01/18/17 04:35 PT 23.2 Seconds (9.8-13.1) H 01/16/17 09:30 INR 2.0 (0.9-1.2) H 01/16/17 09:30 APTT 40.6 Seconds (25.6-37.1) H 01/16/17 09:30 - Constitutional Appears: Non-toxic, No Acute Distress, Unkempt - Head Exam Head Exam: ATRAUMATIC, NORMOCEPHALIC - Eye Exam Eye Exam: EOMI, Scleral icterus - ENT Exam ENT Exam: Mucous Membranes Moist - Neck Exam Neck Exam: Full ROM - Respiratory Exam Respiratory Exam: NORMAL BREATHING PATTERN. absent: Accessory Muscle Use, Respiratory Distress - GI/Abdominal Exam GI & Abdominal Exam: Soft. absent: Tenderness - Extremities Exam Additional comments: R thigh swollen, tender to palpation, firm to touch, + echymosis, decreased ROM 2/2 pain, distal pulses palpable - Neurological Exam Neurological Exam: Alert, Awake, Oriented x3 - Psychiatric Exam Psychiatric exam: Normal Affect, Normal Mood Assessment and Plan - Assessment and Plan (Free Text) Assessment: 51M w. R thigh hematoma -correct coagulopathy -monitor H/H and transfuse PRN -no plans for surgical intervention -will continue to follow -will d/w attending Zemaitis PGY3
[2017-01-18 09:27] LABS: PROTHROMBIN TIME 22.9 Seconds (9.8-13.1)
--- NOTE | 2017-01-18 12:17 | MRI ---
MRI right thigh History: Thigh swelling. Comparison: CT scan dated 01/13/2017 Technique: Multi-echo multiplanar sequences were performed through the right thigh without the use of intravenous contrast. Findings: Prominent reticulation and edema seen within the circumferential subcutaneous soft tissues. Prominent complex signal abnormality seen throughout the anterior thigh musculature including the vastus lateralis, vastus intermedius, and vastus medialis muscles with heterogeneously increased T1 signal, increased STIR signal, and focal areas of post-contrast enhancement. For example, complex enhancing components are noted within the vastus lateralis muscle measuring 2.4 centimeters, in the vastus intermedius muscles measuring 5.8 x 3.4 centimeters, and in the vastus medialis muscle measuring up to 3.0 x 1.9 centimeters. Associated adjacent areas of signal abnormality throughout the visualized muscle bellies. This is of uncertain clinical etiology. These finding may represent an underlying acute liquefying hematoma/hemorrhage versus acute posttraumatic changes versus acute infectious versus inflammatory changes versus underlying lesions versus additional etiology. Clinical correlation. Fluid and edema surrounds the rectus femoris muscle anteriorly as well as the sartorius muscle more medially. Interstitial edema noted within the sartorius muscle. Visualized osseous structures are grossly preserved. 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 Impression: 1. Prominent reticulation and edema seen within the circumferential subcutaneous soft tissues. 2. Prominent complex signal abnormality seen throughout the anterior thigh musculature including the vastus lateralis, vastus intermedius, and vastus medialis muscles with heterogeneously increased T1 signal, increased STIR signal, and focal areas of post-contrast enhancement. For example, complex enhancing components are noted within the vastus lateralis muscle measuring 2.4 centimeters, in the vastus intermedius muscles measuring 5.8 x 3.4 centimeters, and in the vastus medialis muscle measuring up to 3.0 x 1.9 centimeters. Associated adjacent areas of signal abnormality throughout the visualized muscle bellies. This is of uncertain clinical etiology. These finding may represent an underlying acute liquefying hematoma/hemorrhage versus acute posttraumatic changes versus acute infectious versus inflammatory changes versus underlying lesions versus additional etiology. Clinical correlation. 3. Fluid and edema surrounds the rectus femoris muscle anteriorly as well as the sartorius muscle more medially. Interstitial edema noted within the sartorius muscle. 4. 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 These findings were preliminarily reported at 8:36 p.m. on 01/15/[address] Dimple Yee from [facility]
--- NOTE | 2017-01-18 23:51 | PN ---
DATE: 01/18/2017 SUBJECTIVE: The patient in ICU bed 434, time spent 35 minutes, seen and examined at the bedside. Case was discussed in detail with ICU multidisciplinary team in rounds. Events since admission reviewed overnight normotensive, afebrile, telemetry sinus rhythm, swelling of the right thigh with ecchymosis extending to right flank, status post transfusion one unit packed red blood cells, one unit of fresh frozen plasma, 10 mg vitamin K_ and currently on Venofer 100 mg daily, complaining of moderate to severe pain at the right thigh, difficult flexion, extension, able to standup, no orthostasis noted, tolerating p.o. feeds well. PHYSICAL EXAMINATION VITAL SIGNS: Temperature 97.9, heart rate 99, blood pressure 106/43, mean arterial pressure 64, respiratory rate 18, oxygen saturation 98% on room air. Intake 220, output 600, negative balance 380. HEAD, EYES, EARS, NOSE, AND THROAT: Pupils are reactive. Conjunctivae pale. Sclerae anicteric. NECK: Supple. Trachea central. CHEST: Bilateral breath sounds. Clear to auscultation. HEART: Rhythm is regular, S1 and S2 normal. No audible murmur. ABDOMEN: Bowel sounds are present. No distention. Ecchymosis on the right lateral flank area. EXTREMITIES: Ecchymosis on right thigh anteriorly and laterally, circumference right thigh remain same compared to yesterday. Dorsalis pedis palpable, equal in intensity. NEUROLOGIC: Oriented to name, place, and time. No cranial nerve deficit. No motor deficit. Normal tone. Sensory system was normal. CURRENT MEDICATIONS: Folic acid 1 mg daily, Keppra 500 mg p.o. twice daily, morphine sulfate 2 mg IV q. 4 hours p.r.n. for moderate pain, multivitamin 5 mL p.o. daily, Protonix 40 mg IV q. 12 hours, tramadol 100 mg p.o. q. 6 hours, vitamin B1 100 mg p.o. daily, iron sucrose 100 mg IV daily. LABORATORY DATA: WBC 3.4, hemoglobin 7.1, hematocrit 21, platelet count 56. PT 22.9, INR 2. Chemistry: SMA-7 sodium 134, potassium 3.8, chloride 105, CO2 is 26, blood urea nitrogen 12, creatinine 0.6, glucose 91, calcium 8, ammonia level 73. Urinalysis; RBC 12, microscopic WBC 5, . Stool occult blood positive. IMPRESSION: 1. Neurologic: Alert, oriented x3. No evidence of hepatic encephalopathy. Ammonia level is 73. 2. Cardiac: Normotensive. Normal sinus rhythm. 3. Pulmonary: No acute issues. 4. Gastrointestinal: Guaiac positive stool. EtOH related liver disease, cirrhosis, status post transjugular intrahepatic portosystemic shunt coagulopathy. 5. Hematology: Anemia secondary to acute blood loss, hematoma right thigh, status post transfusion multiple units of packed red blood cells, fresh frozen plasma, platelets and vitamin K. Still with right thigh hematoma. 6. Endocrine: Maintain glucose below 180. Keep head of bed 30 degree up. Gastrointestinal prophylaxis, deep vein prophylaxis with SCD, hold anticoagulation. Encourage ambulation as tolerated. Appreciate general surgery followup. No intervention planned as there is no conclusive evidence of compartment syndrome. Lincoln Gutierrez MD MTDD
[2017-01-19 05:15] LABS: MEAN CELL VOLUME 95.6 fl (80.0-94.0); MEAN CORPUSCULAR HEMOGLOBIN 32.5 pg (27.0-31.0); RBC 1.85 Mil/uL (4.40-5.90); RED CELL DISTRIBUTION WIDTH 17.5 % (11.5-14.5)
[2017-01-19 05:32] LABS: ALB/GLOB RATIO 0.8 (1.0-2.1); ALBUMIN 2.8 g/dL (3.5-5.0); ALT/SGPT 43 U/L (21-72); AST/SGOT 87 U/L (17-59); BLOOD UREA NITROGEN 12 mg/dl (9-20); GFR AFRICAN-AMERICAN > 60; GFR NON-AFRICAN AMERICAN > 60; MAGNESIUM 1.4 MG/DL (1.6-2.3)
[2017-01-19 05:46] LABS: PROTHROMBIN TIME 22.5 Seconds (9.8-13.1)
[2017-01-19 05:47] LABS: PARTIAL THROMBOPLASTIN TIME 40.6 Seconds (25.6-37.1)
[2017-01-19] MEDS ORDERED: Magnesium Sulfate 2 GM in Sodium Chloride 0.9% 100 ML IVPB ONE (07:11)
--- NOTE | 2017-01-19 07:26 | CP.CCUPN ---
CCU Subjective - Physician Review Subjective (Free Text): Awake and alert, appropriately responsive, no s/sx of excessive agitation, afebrile, denies any chills, diaphoresis, nor increase in leg pain, Nursing descriptions reveal increasing ecchymosis now extending around to groin, penis and scrotum, not evident 4 days ago on my initial exam. Denies any dizziness, CP, SOB, palpitations. ROS: as above, no other pertinent negs or positives on 10+ system review. Other PMSFH: All recent nursing and physician documentation reviewed and no new information noted relevant to current problems. MAJOR PROBLEMS: 1. Acute Anemia 2 Trauma to RLE 2. Coagulopathy 2 Alcoholic Liver Disease 3. Thrombocytopenia 2 Chronic Alcoholism / Hypersplenism 4. FOBT +; no prior h/o portal HTN or variceal disease PLAN: 1. Essentially still anemic and has recd total 6 units PRBCs to date and counts remain low. Coagulopathy still unchanged despite FFP and VitK. Repeat bloodwork ordered to assess for possible Hyperfibrinolysis as reason for persistent coagulopathy despite attempts at correction. Fibrinogen levels are low and will order Cryoppt today. He will need more blood. Would strongly consider use of PCC unless otherwise directed by Hematology. Consider giving daily Vit K. 2. Unclear if he is still bleeding into upper leg compartments, but no compartment syndrome has been deemed evident. Ortho f/u. CPK still elevated, cautious IVF hydration. 3. Platelets remain low, but are above 50K. Give more Desmopressin. Discuss with Hematology regarding augmenting platelet counts, but feel correcting coagulopathy would be more productive. 4. Unclear if there is more bleeding into the leg versus other occult intra- abdominal loss or GI tract loss. Consider repeating CTAP to look for retroperitoneal bleed; aware that study done 4 days ago was negative. 5. W/u for possible hemolysis as well. 6. Supplement magnesium. 7. Watch for s/sx ETOH Withdrawal. CCU Objective - Vital Signs / Intake & Output Vital Signs (Last 4 hours): Vital Signs Pulse Resp BP 01/19/17 04:00 106 H 12 108/65 - Physical Exam Head: Positive for: Normocephalic Pupils: Positive for: PERRL Extroacular Muscles: Positive for: EOMI Conjunctiva: Negative for: Injected, Icteric Pharnyx: Positive for: Normal. Negative for: ERYTHEMA, EXUDATE Neck: Negative for: JVD, Lymphadenopathy Respiratory/Chest: Positive for: Decreased Breath Sounds. Negative for: Wheezes , Rales Cardiovascular: Positive for: Regular Rate and Rhythm, Tachycardic Abdomen: Negative for: Tenderness, Distention, Normal Bowel Sounds Genitourinary Male: Positive for: Penile Swelling, Testicle Swelling, Other ( groin ecchymosis) Lower Extremity: Positive for: Edema, CALF TENDERNESS. Negative for: Cyanosis Neurological: Positive for: GCS=15, CN II-XII Intact, Motor Func Grossly Intact , Normal Sensory Function Skin: Positive for: Warm. Negative for: Rashes - Medications Active Medications: Active Medications Generic Name Dose Route Start Last Admin Trade Name Freq PRN Reason Stop Dose Admin Folic Acid 1 mg 01/16/17 11:30 01/18/17 08:29 Folic Acid PO 1 mg DAILY [facility] Administration Magnesium Sulfate 2 gm/ Sodium 104 mls @ 104 mls/hr 01/19/17 07:11 Chloride IVPB 01/19/17 08:10 ONCE ONE 2 GM/HR Levetiracetam 500 mg 01/16/17 09:00 01/18/17 17:22 Keppra PO 500 mg BID [facility] Administration Morphine Sulfate 2 mg 01/15/17 20:32 01/18/17 21:30 Morphine IVP 2 mg Q4 PRN Administration Pain, severe (8-10) Multivitamins/Vitamin C 5 ml 01/16/17 11:30 01/18/17 08:30 Multi-Delyn Liquid PO 5 ml DAILY [facility] Administration Pantoprazole Sodium 40 mg 01/15/17 21:00 01/18/17 21:26 Protonix Inj IVP 40 mg Q12 JANNIE Administration Thiamine HCl 100 mg 01/16/17 11:30 01/18/17 08:29 Vitamin B1 Tab PO 100 mg DAILY [facility] Administration Tramadol HCl 100 mg 01/15/17 20:32 01/19/17 01:58 Ultram PO 100 mg Q6 PRN Administration Pain, moderate (4-7) - Patient Studies Lab Studies: Microbiology Studies 01/15/17 08:40 MRSA Culture (Admit) - Final Naris MRSA NOT DETECTED Lab Studies 01/19/17 01/19/17 01/19/17 Range/Units 04:20 04:20 04:20 WBC (4.8-10.8) K/uL RBC (4.40-5.90) Mil/uL Hgb (12.0-18.0) g/dL Hct (35.0-51.0) % MCV (80.0-94.0) fl MCH (27.0-31.0) pg MCHC (33.0-37.0) g/dL RDW (11.5-14.5) % Plt Count (130-400) K/uL Retic Count 7.6 H (0.5-1.5) % PT (9.8-13.1) Seconds INR (0.9-1.2) APTT (25.6-37.1) Seconds Fibrinogen (200-400) mg/dl Sodium 135 (132-148) mmol/l Potassium 3.8 (3.6-5.0) MMOL/L Chloride 104 (98-107) mmol/L Carbon Dioxide 25 (22-30) mmol/L Anion Gap 10 (10-20) BUN 12 (9-20) mg/dl Creatinine 0.6 L (0.8-1.5) mg/dL Est GFR ( Amer) > 60 Est GFR (Non-Af Amer) > 60 Random Glucose 91 (75-110) mg/dL Calcium 8.0 L (8.4-10.2) mg/dL Phosphorus 3.4 (2.5-4.5) mg/dl Magnesium 1.4 L (1.6-2.3) MG/DL Total Bilirubin 12.0 H (0.2-1.3) mg/dl Direct Bilirubin 5.0 H (0.0-0.4) mg/ml AST 87 H (17-59) U/L ALT 43 (21-72) U/L Alkaline Phosphatase 95 (38-126) U/L Lactate Dehydrogenase 673 H (313-618) U/L Total Creatine Kinase 324 H (55-170) U/L Total Protein 6.2 L (6.3-8.2) G/DL Albumin 2.8 L (3.5-5.0) g/dL Globulin 3.4 (2.2-3.9) gm/dL Albumin/Globulin Ratio 0.8 L (1.0-2.1) XIMENA, Poly Interpret Negative (NEGATIVE) 01/19/17 01/19/17 01/18/17 Range/Units 04:20 04:20 08:45 WBC 4.0 L (4.8-10.8) K/uL RBC 1.85 L (4.40-5.90) Mil/uL Hgb 6.0 L* (12.0-18.0) g/dL Hct 17.6 L (35.0-51.0) % MCV 95.6 H (80.0-94.0) fl MCH 32.5 H (27.0-31.0) pg MCHC 34.0 (33.0-37.0) g/dL RDW 17.5 H (11.5-14.5) % Plt Count 58 L (130-400) K/uL Retic Count (0.5-1.5) % PT 22.5 H 22.9 H (9.8-13.1) Seconds INR 2.0 H 2.0 H (0.9-1.2) APTT 40.6 H (25.6-37.1) Seconds Fibrinogen 141 L* (200-400) mg/dl Sodium (132-148) mmol/l Potassium (3.6-5.0) MMOL/L Chloride (98-107) mmol/L Carbon Dioxide (22-30) mmol/L Anion Gap (10-20) BUN (9-20) mg/dl Creatinine (0.8-1.5) mg/dL Est GFR ( Amer) Est GFR (Non-Af Amer) Random Glucose (75-110) mg/dL Calcium (8.4-10.2) mg/dL Phosphorus (2.5-4.5) mg/dl Magnesium (1.6-2.3) MG/DL Total Bilirubin (0.2-1.3) mg/dl Direct Bilirubin (0.0-0.4) mg/ml AST (17-59) U/L ALT (21-72) U/L Alkaline Phosphatase (38-126) U/L Lactate Dehydrogenase (313-618) U/L Total Creatine Kinase (55-170) U/L Total Protein (6.3-8.2) G/DL Albumin (3.5-5.0) g/dL Globulin (2.2-3.9) gm/dL Albumin/Globulin Ratio (1.0-2.1) XIMENA, Poly Interpret (NEGATIVE) Laboratory Results - last 24 hr 01/18/17 01/19/17 01/19/17 08:45 04:20 04:20 WBC 4.0 L RBC 1.85 L Hgb 6.0 L* Hct 17.6 L MCV 95.6 H MCH 32.5 H MCHC 34.0 RDW 17.5 H Plt Count 58 L Retic Count PT 22.9 H 22.5 H INR 2.0 H 2.0 H APTT 40.6 H Fibrinogen 141 L* Sodium Potassium Chloride Carbon Dioxide Anion Gap BUN Creatinine Est GFR ( Amer) Est GFR (Non-Af Amer) Random Glucose Calcium Phosphorus Magnesium Total Bilirubin Direct Bilirubin AST ALT Alkaline Phosphatase Lactate Dehydrogenase Total Creatine Kinase Total Protein Albumin Globulin Albumin/Globulin Ratio XIMENA, Poly Interpret 01/19/17 01/19/17 01/19/17 04:20 04:20 04:20 WBC RBC Hgb Hct MCV MCH MCHC RDW Plt Count Retic Count 7.6 H PT INR APTT Fibrinogen Sodium 135 Potassium 3.8 Chloride 104 Carbon Dioxide 25 Anion Gap 10 BUN 12 Creatinine 0.6 L Est GFR ( Amer) > 60 Est GFR (Non-Af Amer) > 60 Random Glucose 91 Calcium 8.0 L Phosphorus 3.4 Magnesium 1.4 L Total Bilirubin 12.0 H Direct Bilirubin 5.0 H AST 87 H ALT 43 Alkaline Phosphatase 95 Lactate Dehydrogenase 673 H Total Creatine Kinase 324 H Total Protein 6.2 L Albumin 2.8 L Globulin 3.4 Albumin/Globulin Ratio 0.8 L XIMENA, Poly Interpret Negative Critical Care Progress Note - Nutrition Nutrition: Nutrition Category Date Time Status Regular Diet [DIET] Diets 01/16/17 Lunch Active
[2017-01-19] MEDS ORDERED: Desmopressin 4 mcg/ml Inj (10 ml) IV ONE ×2 (07:31→10:38)
--- NOTE | 2017-01-19 08:08 | CP.PCM.PN ---
Subjective - Date & Time of Evaluation Date of Evaluation: 01/19/17 Time of Evaluation: 08:08 - Subjective Subjective: No acute events overnight. Patient lying in bed, complaining of generalized pain. Significant edema of RLE with jaundice. He states pain is 10/10. Extension of ecchymosis of right abdomen, extending around to groin, and genitalia. Extension was marked with black marker by the check writer. No other complaints at present. Objective - Vital Signs/Intake and Output Vital Signs (last 24 hours): Temp Pulse Resp BP Pulse Ox 98.5 F 104 H 15 97/33 L 97 01/19/17 00:00 01/19/17 06:00 01/19/17 06:00 01/19/17 06:00 01/19/17 00:00 Intake and Output: 01/19/17 01/19/17 06:59 18:59 Output Total 800 Balance -800 - Medications Medications: Current Medications Folic Acid (Folic Acid) 1 mg PO DAILY [facility] Last Admin: 01/18/17 08:29 Dose: 1 mg Magnesium Sulfate 2 gm/ Sodium (Chloride) 104 mls @ 104 mls/hr IVPB ONCE ONE PRN Reason: 2 GM/HR Stop: 01/19/17 08:10 Desmopressin Acetate 24 mcg/ (Sodium Chloride) 106 mls @ 106 mls/hr IV ONCE ONE Stop: 01/19/17 08:44 Levetiracetam (Keppra) 500 mg PO BID [facility] Last Admin: 01/18/17 17:22 Dose: 500 mg Morphine Sulfate (Morphine) 2 mg IVP Q4 PRN PRN Reason: Pain, severe (8-10) Last Admin: 01/18/17 21:30 Dose: 2 mg Multivitamins/Vitamin C (Multi-Delyn Liquid) 5 ml PO DAILY [facility] Last Admin: 01/18/17 08:30 Dose: 5 ml Pantoprazole Sodium (Protonix Inj) 40 mg IVP Q12 [facility] Last Admin: 01/18/17 21:26 Dose: 40 mg Thiamine HCl (Vitamin B1 Tab) 100 mg PO DAILY [facility] Last Admin: 01/18/17 08:29 Dose: 100 mg Tramadol HCl (Ultram) 100 mg PO Q6 PRN PRN Reason: Pain, moderate (4-7) Last Admin: 01/19/17 01:58 Dose: 100 mg - Labs Labs: 08/01/17 04:20 01/19/17 04:20 PT 22.5 Seconds (9.8-13.1) H 01/19/17 04:20 INR 2.0 (0.9-1.2) H 01/19/17 04:20 APTT 40.6 Seconds (25.6-37.1) H 01/19/17 04:20 - Constitutional Appears: In Acute Distress (secondary to pain, jaundiced) - Head Exam Head Exam: ATRAUMATIC, NORMOCEPHALIC - Eye Exam Eye Exam: EOMI, Scleral icterus - Respiratory Exam Respiratory Exam: Clear to Ausculation Bilateral, NORMAL BREATHING PATTERN. absent: Respiratory Distress - Cardiovascular Exam Cardiovascular Exam: Tachycardia (sinus), REGULAR RHYTHM, Murmur - GI/Abdominal Exam Additional comments: ecchymosis right abdomen extending to back, groin, scrotum. outlined with black marker. - Rectal Exam Rectal Exam: Deferred - Extremities Exam Additional comments: significant right lower extremity edema, pitting, tender to touch - Neurological Exam Neurological Exam: Awake, Oriented x3 - Skin Skin Exam: Dry Additional comments: right flank, groin, lateral right LE ecchymosis and jaundice Assessment and Plan - Assessment and Plan (Free Text) Assessment: 51 yo M with PMH liver cirrhosis secondary to alcohol abuse, seizures admitted for right thigh hematoma. Pt continues to have drop in hemoglobin and increased swelling of his RLE. Pt is being monitored for compartment syndrome. Desmopressin as per senior clerk. Possible hemolytic anemia, labs ordered will f/ u. Case was d/w [employer]. Pt to get DDAVP, cryoppt and PCC. CTAP and LE to be done today. Plan: 1) Right Thigh Hematoma -worsening, now with ecchymosis right abdomen/flank/groin -MRI with constrast done 01/15/17- large quadriceps hematoma -General surgery and Ortho (Dr. Richard) both state since there is no evidence of compartment syndrome, there is no indication for surgical intervention -Dr. Mack (hematology) is following. -Monitor for compartment syndrome -Continue to ice and elevate extremity -Pain control -CT abd/pelvis / lower extremity CT done -senior clerk recommendations appreciated. -haptoglobin pending. Liver Cirrhosis -likely secondary to alcohol abuse, likely cause of coagulopathic process. -Meld-Na+ score: 26 -Meld (original): 24 Pancytopenia -possible hemolytic process given patients reticulocyte count and jaundice. -Hg dropped 6.0, down from 7.1 yesterday -Reticulocyte count 7.6% -PT 22.5, INR 2.0 -fibrinogen 141 L -Fecal occult + -GI consult placed -CT abdomen and pelvis does not show any evidence of hemorrage, GI did administer DDAVP -Monitor H/H and coags Alcohol Abuse -CIWA score 0 -Alcohol level was 11 at admission -Monitor for withdrawal History of seizures -last episode 2 days prior to admission -Continue home meds: Keppra -Keppra level ordered, still pending -Monitor for seizures DVT prophylaxis -SCDs
[2017-01-19] MEDS: Multiple Vitamins Oral Solution PO SCH (08:15)
--- NOTE | 2017-01-19 09:22 | CP.PCM.PN ---
Subjective - Date & Time of Evaluation Date of Evaluation: 01/19/17 Time of Evaluation: 07:00 - Subjective Subjective: General Surgery Progress note for Dr. Miller Patient seen and examined at bedside in ICU. Patient resting in bed comfortably. He is still experiencing some pain in Right thigh. Denies fever/ chills, cp, sob. Objective - Vital Signs/Intake and Output Vital Signs (last 24 hours): Temp Pulse Resp BP Pulse Ox 98.2 F 102 H 25 H 107/76 96 01/19/17 08:00 01/19/17 08:00 01/19/17 08:00 01/19/17 08:00 01/19/17 08:00 Intake and Output: 01/19/17 01/19/17 06:59 18:59 Output Total 800 Balance -800 - Medications Medications: Current Medications Folic Acid (Folic Acid) 1 mg PO DAILY [facility] Last Admin: 01/19/17 08:15 Dose: 1 mg Levetiracetam (Keppra) 500 mg PO BID [facility] Last Admin: 01/19/17 08:15 Dose: 500 mg Morphine Sulfate (Morphine) 2 mg IVP Q4 PRN PRN Reason: Pain, severe (8-10) Last Admin: 01/19/17 08:13 Dose: 2 mg Multivitamins/Vitamin C (Multi-Delyn Liquid) 5 ml PO DAILY [facility] Last Admin: 01/19/17 08:15 Dose: 5 ml Pantoprazole Sodium (Protonix Inj) 40 mg IVP Q12 [facility] Last Admin: 01/19/17 08:15 Dose: 40 mg Thiamine HCl (Vitamin B1 Tab) 100 mg PO DAILY [facility] Last Admin: 01/19/17 08:16 Dose: 100 mg Tramadol HCl (Ultram) 100 mg PO Q6 PRN PRN Reason: Pain, moderate (4-7) Last Admin: 01/19/17 01:58 Dose: 100 mg - Labs Labs: 01/19/17 04:20 01/19/17 04:20 PT 22.5 Seconds (9.8-13.1) H 01/19/17 04:20 INR 2.0 (0.9-1.2) H 01/19/17 04:20 APTT 40.6 Seconds (25.6-37.1) H 01/19/17 04:20 - Constitutional Appears: Non-toxic, Unkempt - Head Exam Head Exam: ATRAUMATIC, NORMOCEPHALIC - Eye Exam Eye Exam: EOMI, Scleral icterus - ENT Exam ENT Exam: Mucous Membranes Moist - Neck Exam Neck Exam: Full ROM - Respiratory Exam Respiratory Exam: NORMAL BREATHING PATTERN. absent: Accessory Muscle Use, Respiratory Distress - Cardiovascular Exam Cardiovascular Exam: Tachycardia - GI/Abdominal Exam GI & Abdominal Exam: Soft - Extremities Exam Additional comments: Right thigh edema, tender to palpation, firm to touch, + ecchymosis, decreased ROM secondary to pain, distal pulses palpable - Neurological Exam Neurological Exam: Alert, Awake - Psychiatric Exam Psychiatric exam: Normal Affect, Normal Mood - Skin Skin Exam: Dry, Warm Assessment and Plan - Assessment and Plan (Free Text) Plan: 51M presents with Right thigh hematoma -reverse coagulopathy -monitor H/H and transfuse PRN -no plans for surgical intervention -Surgery signing off -DW Dr. Miller Thank you for the consult. Martin Vasquez PGY-1
[2017-01-19] MEDS ORDERED: Magnesium Sulfate 2 gm/50 ml 2 GM/50 ML BAG IVPB ONE (09:45)
[2017-01-19] MEDS ORDERED: Desmopressin 20 MCG in Sodium Chloride 0.9% 100 ML IV ONE (10:45)
--- NOTE | 2017-01-19 12:23 | CT ---
PROCEDURE: CT Abdomen and Pelvis without intravenous contrast HISTORY: Hg drop.rule out retroperitoneal bleeding COMPARISON: 01/16/2017 TECHNIQUE: Without contrast.. Contrast Dose: 0 Radiation dose: Total exam DLP = 959.5 mGy-cm. This CT exam was performed using one or more of the following dose reduction techniques: Automated exposure control, adjustment of the mA and/or kV according to patient size, and/or use of iterative reconstruction technique. FINDINGS: LOWER THORAX: Unremarkable. LIVER: Nodular contour consistent with hepatic cirrhosis. Normal size. No mass. No biliary ductal dilatation. TIPS stent noted in appropriate position. GALLBLADDER AND BILE DUCTS: Mural thickening of the gallbladder noted, nonspecific. Cholelithiasis noted. No pericholecystic fluid. Nonspecific finding. PANCREAS: Unremarkable. No gross lesion or ductal dilatation. SPLEEN: Unremarkable. ADRENALS: Unremarkable. No mass. KIDNEYS AND URETERS: Pedunculated high density mass lower pole left kidney, 11.2 mm, most likely hyperdense cysts. Correlate with ultrasound. No other renal mass. No calculus or hydronephrosis. VASCULATURE: Unremarkable. No aortic aneurysm. BOWEL: Mild sigmoid diverticulosis. No evidence of diverticulitis. No bowel obstruction. Mild mural thickening of the cecum and proximal ascending colon, nonspecific. This may reflect a colitis. The remainder of the large intestine is unremarkable. APPENDIX: Normal appendix identified. There is what looks like suture material at the base of the appendix, of uncertain significance. PERITONEUM: Unremarkable. No free fluid. No free air. LYMPH NODES: Unremarkable. No enlarged lymph nodes. BLADDER: Poorly distended. Grossly unremarkable. REPRODUCTIVE: Normal prostate BONES: No acute fracture. OTHER FINDINGS: Probable hemorrhage into right iliopsoas muscle with increased attenuation and mild enlargement relative to left. Probable intramuscular hemorrhage around proximal right thigh. Please see report of MRI right lower extremity dated 01/15/2017. Extensive subcutaneous edema over the right lateral abdominal wall and right lateral thigh. IMPRESSION: Hepatic cirrhosis. Tips stent. Intramuscular hemorrhage into right iliopsoas. Probable intramuscular hemorrhage in proximal right thigh. Extensive subcutaneous edema over right lateral abdominal wall and right lateral thigh. Nonspecific mural thickening of cecum and proximal ascending colon. Possible colitis. Cholelithiasis with mild mural thickening of the gallbladder common nonspecific. Splenomegaly.
--- NOTE | 2017-01-19 13:45 | CT ---
PROCEDURE: CT right lower extremity HISTORY: Hematoma, r/o compartment syndrome COMPARISON: MRI right lower extremity 01/15/2017 TECHNIQUE: 2.5 mm contiguous axial sections were acquired through the right lower extremity from the hip to the proximal tibia. Sagittal and coronal images were reformatted from the axial scan. FINDINGS: There is diffuse enlargement of the extensor muscles without discrete collection identified. This likely represents intramuscular hemorrhage. This is increased in extent when compared to the MRI examination of 01/15/2017. Small intramuscular hemorrhages appreciable on that examination are not discretely evident on this noncontrast CT examination. There is diffuse subcutaneous edema over the lateral aspect of the by. This extends cephalad to the level of the hip. There are no osseous abnormalities. There is no fracture. There is no lytic or blastic osseous lesion. IMPRESSION: Probable intramuscular hemorrhage in the extensor musculature of the right thigh. There is no discrete collection evident on this noncontrast CT examination. Small intramuscular hemorrhage is evident on recent MRI examination are not demonstrated on this examination. Extensive subcutaneous edema. No other significant abnormality.
--- NOTE | 2017-01-19 15:34 | CP.PCM.PN ---
Subjective - Date & Time of Evaluation Date of Evaluation: 01/19/17 Time of Evaluation: 08:00 - Subjective Subjective: c/o right thigh pain partially controlled with pain meds,continued thigh fullness with ecchymotic extension into right groin and flank,currently receiving PRBC's for Hgb of 6.1,aware of multiple transfusions,FFP,vit K and continued INR 2.0,aware of CT results of RLE,abd/pel today showing intramuscular hemorrhage into right iliopsoas muscle,continued intramuscular hemorrhage to right proximal/lateral thigh without definitive collection, all d/ w Dr. Curry,pt denies RLE loss of sensation. Objective - Vital Signs/Intake and Output Vital Signs (last 24 hours): Temp Pulse Resp BP Pulse Ox 98.2 F 93 H 17 98/59 L 95 01/19/17 12:00 01/19/17 12:00 01/19/17 12:00 01/19/17 12:00 01/19/17 12:00 Intake and Output: 01/19/17 01/19/17 06:59 18:59 Output Total 800 300 Balance -800 -300 - Medications Medications: Current Medications Folic Acid (Folic Acid) 1 mg PO DAILY [facility] Last Admin: 01/19/17 08:15 Dose: 1 mg Levetiracetam (Keppra) 500 mg PO BID [facility] Last Admin: 01/19/17 08:15 Dose: 500 mg Morphine Sulfate (Morphine) 2 mg IVP Q4 PRN PRN Reason: Pain, severe (8-10) Last Admin: 01/19/17 08:13 Dose: 2 mg Multivitamins/Vitamin C (Multi-Delyn Liquid) 5 ml PO DAILY [facility] Last Admin: 01/19/17 08:15 Dose: 5 ml Pantoprazole Sodium (Protonix Inj) 40 mg IVP Q12 [facility] Last Admin: 01/19/17 08:15 Dose: 40 mg Thiamine HCl (Vitamin B1 Tab) 100 mg PO DAILY [facility] Last Admin: 01/19/17 08:16 Dose: 100 mg Tramadol HCl (Ultram) 100 mg PO Q6 PRN PRN Reason: Pain, moderate (4-7) Last Admin: 01/19/17 11:40 Dose: 100 mg - Labs Labs: 01/19/17 04:20 01/19/17 04:20 PT 22.5 Seconds (9.8-13.1) H 01/19/17 04:20 INR 2.0 (0.9-1.2) H 01/19/17 04:20 APTT 40.6 Seconds (25.6-37.1) H 01/19/17 04:20 - Constitutional Appears: No Acute Distress - Head Exam Head Exam: ATRAUMATIC, NORMAL INSPECTION Additional comments: mildly juandiced - Eye Exam Eye Exam: EOMI, PERRL - ENT Exam ENT Exam: Mucous Membranes Moist - Respiratory Exam Respiratory Exam: Clear to Ausculation Bilateral - Cardiovascular Exam Cardiovascular Exam: REGULAR RHYTHM - GI/Abdominal Exam GI & Abdominal Exam: Soft Additional comments: right pelvic and right flank ecchymosis - Extremities Exam Additional comments: + fullness to right femur extending down to calf,compartments soft,+ tenderness to anterior and medial thigh proximal and distal to palpation,sensation intact, + 2 femoral,popliteal and DP pulses,restricted elevation RLE secondary to femoral STS,moves extremity on command - Neurological Exam Neurological Exam: Alert, Oriented x3 - Psychiatric Exam Psychiatric exam: Normal Affect Assessment and Plan - Assessment and Plan (Free Text) Assessment: 51 yo male with Cirrhosis of Liver/Hepatic Coagulapathy/Right Thigh Intramuscular Hemorrhage with extension into Right Iliopsoas Muscle s/p blunt trauma to Right Proximal Femur,currently without signs of Compartment Syndrome/ Severe Anemia s/p multiple transfusions Plan: d/w Dr. Curry,no surgical intervention needed currently,no current indication for compartmental fasciotomy release or internal control of intramuscular hemorrhage,no definitive collection, pt's coagulapathy and ongoing anemia being addressed by primary medical team and Hem Onc,resume bedrest for now,will continue to follow with primary team.
--- NOTE | 2017-01-19 20:23 | CP.PCM.PN ---
Subjective - Date & Time of Evaluation Date of Evaluation: 01/19/17 Time of Evaluation: 16:00 - Subjective Subjective: Has right thigh pain Increased right thigh swelling and ecchymosis compared to prior examination Objective - Vital Signs/Intake and Output Vital Signs (last 24 hours): Temp Pulse Resp BP Pulse Ox 98.1 F 96 H 22 135/69 98 01/19/17 18:00 01/19/17 18:00 01/19/17 18:00 01/19/17 18:00 01/19/17 16:00 Intake and Output: 01/19/17 01/20/17 18:59 06:59 Intake Total 450 Output Total 600 Balance -150 - Medications Medications: Current Medications Folic Acid (Folic Acid) 1 mg PO DAILY [facility] Last Admin: 01/19/17 08:15 Dose: 1 mg Levetiracetam (Keppra) 500 mg PO BID [facility] Last Admin: 01/19/17 17:02 Dose: 500 mg Morphine Sulfate (Morphine) 2 mg IVP Q4 PRN PRN Reason: Pain, severe (8-10) Last Admin: 01/19/17 16:50 Dose: 2 mg Multivitamins/Vitamin C (Multi-Delyn Liquid) 5 ml PO DAILY [facility] Last Admin: 01/19/17 08:15 Dose: 5 ml Pantoprazole Sodium (Protonix Inj) 40 mg IVP Q12 [facility] Last Admin: 01/19/17 08:15 Dose: 40 mg Thiamine HCl (Vitamin B1 Tab) 100 mg PO DAILY [facility] Last Admin: 01/19/17 08:16 Dose: 100 mg Tramadol HCl (Ultram) 100 mg PO Q6 PRN PRN Reason: Pain, moderate (4-7) Last Admin: 01/19/17 19:39 Dose: 100 mg - Labs Labs: 01/19/17 04:20 01/19/17 04:20 PT 22.5 Seconds (9.8-13.1) H 01/19/17 04:20 INR 2.0 (0.9-1.2) H 01/19/17 04:20 APTT 40.6 Seconds (25.6-37.1) H 01/19/17 04:20 - Head Exam Head Exam: ATRAUMATIC - Eye Exam Eye Exam: Normal appearance - ENT Exam ENT Exam: Mucous Membranes Dry - Respiratory Exam Respiratory Exam: NORMAL BREATHING PATTERN - Cardiovascular Exam Cardiovascular Exam: +S1, +S2 - GI/Abdominal Exam GI & Abdominal Exam: Normal Bowel Sounds - Extremities Exam Additional comments: right LE swelling with ecchymosis extending to groin Assessment and Plan (1) Thigh hematoma Assessment & Plan: cont. intramuscular hemorrhage into RLE by CT and exam patient has received PRBC, FFP, platelet transfusions, vit k, and desmopressin with continued drop in hgb for 2U cryopercipitate transfusion given hypofibrinogenemia - discussed with sap developer for possible prothrombin complex, antifibrinolysis if bleeding persists Status: Acute (2) Anemia Assessment & Plan: intramuscular LE hemorrhage despite elevation of retic count; retic index is low bump in indirect bili is likely related to transfusions as opposed to hemolysis cont. transfusion support PRN Status: Acute (3) Coagulopathy Assessment & Plan: liver disease low fibrinogen related to decreased synthetic function of liver from cirrhosis for 2U cryopercipitate today Status: Acute (4) Thrombocytopenia Assessment & Plan: liver disease splenic sequestration Status: Acute
[2017-01-19 21:30] LABS: SQUAMOUS EPITHIAL < 1 /hpf (0-5); URINE BACTERIA RARE (<OCC); URINE BILIRUBIN MODERATE (NEGATIVE); URINE BLOOD SMALL (NEGATIVE); URINE CLARITY SLIGHTY-CLOUDY (Clear); URINE COLOR AMBER (YELLOW); URINE GLUCOSE (UA) NEG (Normal); URINE LEUKOCYTE ESTERASE NEG Leu/uL (Negative); URINE NITRATE NEGATIVE (NEGATIVE); URINE PROTEIN NEGATIVE (NEGATIVE)
[2017-01-20 05:29] LABS: MEAN CORPUSCULAR HEMOGLOBIN 31.8 pg (27.0-31.0); MEAN CORPUSCULAR HGB CONC 33.8 g/dL (33.0-37.0); RBC 2.2 Mil/uL (4.40-5.90); RED CELL DISTRIBUTION WIDTH 17.6 % (11.5-14.5); WHITE BLOOD COUNT 3.4 K/uL (4.8-10.8)
[2017-01-20 05:46] LABS: ALBUMIN 2.7 g/dL (3.5-5.0); ALT/SGPT 49 U/L (21-72); AST/SGOT 85 U/L (17-59); BLOOD UREA NITROGEN 14 mg/dl (9-20); CALCIUM 7.7 mg/dL (8.4-10.2); GFR AFRICAN-AMERICAN > 60; GFR NON-AFRICAN AMERICAN > 60
[2017-01-20 05:48] LABS: ALB/GLOB RATIO 0.8 (1.0-2.1)
[2017-01-20 05:58] LABS: INR 2.1 (0.9-1.2); PARTIAL THROMBOPLASTIN TIME 37.6 Seconds (25.6-37.1); PROTHROMBIN TIME 22.4 Seconds (9.8-13.1)
[2017-01-20] MEDS ORDERED: Hum Prothrombin CPLX(PCC)4FACT 1 Unit Inj IV ONE (07:07)
--- NOTE | 2017-01-20 08:13 | CP.CCUPN ---
<Nishant Moreno - Last Filed: 01/20/17 14:48> CCU Subjective - Physician Review Subjective (Free Text): 01/20/17 08:11 Patient seen and examined bedside. Somnolent in the morning but well oriented. As per nurse he was restless last night and did not sleep well. Patient denies leg pain now.Denies chest pain, SOB, N/V/D. Using O2 NC. Still Jaundiced with right leg swelling from foot to thigh, echymosis right flank abd 01/20/17 10:00 am Patient was able to have little breakfast. AAOx3. still somnolent compared with this morning. Reports right leg pain 01/28, not radiated Critical Care Time Spent (in minutes): 20 CCU Objective - Vital Signs / Intake & Output Vital Signs (Last 4 hours): Vital Signs Pulse Resp BP Pulse Ox 01/20/17 06:00 85 18 94/48 L 100 - Physical Exam Head: Positive for: Normocephalic Pupils: Positive for: PERRL Extroacular Muscles: Positive for: EOMI, Other (Conjunctival jaundice) Conjunctiva: Positive for: Icteric. Negative for: Injected Pharnyx: Positive for: Normal. Negative for: ERYTHEMA, EXUDATE Neck: Negative for: JVD, Lymphadenopathy Respiratory/Chest: Positive for: Good Air Exchange. Negative for: Wheezes, Rales Cardiovascular: Positive for: Regular Rate and Rhythm, Murmurs (2/6 over left sternal border), Tachycardic Abdomen: Positive for: Other (ecchymosis of right flank abdomen). Negative for : Tenderness, Distention, Normal Bowel Sounds Genitourinary Male: Positive for: Penile Swelling, Testicle Swelling, Other ( groin ecchymosis) Lower Extremity: Positive for: Edema, CALF TENDERNESS, Swelling, Other ( Ecchymosis of RLE). Negative for: Cyanosis Neurological: Positive for: GCS=15, CN II-XII Intact, Motor Func Grossly Intact , Normal Sensory Function Skin: Positive for: Warm, Hot, Other (jaundice,ecchymosis right flank, RLE). Negative for: Rashes Psychiatric: Positive for: Alert, Oriented x 3 - Medications Active Medications: Active Medications Generic Name Dose Route Start Last Admin Trade Name Freq PRN Reason Stop Dose Admin Folic Acid 1 mg 01/16/17 11:30 01/19/17 08:15 Folic Acid PO 1 mg DAILY JANNIE Administration Levetiracetam 500 mg 01/16/17 09:00 01/19/17 17:02 Keppra PO 500 mg BID JANNIE Administration Morphine Sulfate 2 mg 01/15/17 20:32 01/20/17 01:53 Morphine IVP 2 mg Q4 PRN Administration Pain, severe (8-10) Multivitamins/Vitamin C 5 ml 01/16/17 11:30 01/19/17 08:15 Multi-Delyn Liquid PO 5 ml DAILY JANNIE Administration Pantoprazole Sodium 40 mg 01/15/17 21:00 01/19/17 21:38 Protonix Inj IVP 40 mg Q12 JANNIE Administration Thiamine HCl 100 mg 01/16/17 11:30 01/19/17 08:16 Vitamin B1 Tab PO 100 mg DAILY JANNIE Administration Tramadol HCl 100 mg 01/15/17 20:32 01/20/17 03:57 Ultram PO 100 mg Q6 PRN Administration Pain, moderate (4-7) - Patient Studies Lab Studies: Lab Studies 01/20/17 01/20/17 01/20/17 Range/Units 04:25 04:25 04:25 WBC 3.4 L (4.8-10.8) K/uL RBC 2.20 L (4.40-5.90) Mil/uL Hgb 7.0 L (12.0-18.0) g/dL Hct 20.6 L (35.0-51.0) % MCV 94.0 (80.0-94.0) fl MCH 31.8 H (27.0-31.0) pg MCHC 33.8 (33.0-37.0) g/dL RDW 17.6 H (11.5-14.5) % Plt Count 58 L (130-400) K/uL Haptoglobin (43-212) mg/dL PT 22.4 H (9.8-13.1) Seconds INR 2.1 H (0.9-1.2) APTT 37.6 H (25.6-37.1) Seconds Fibrinogen 142 L* (200-400) mg/dl Sodium 132 (132-148) mmol/l Potassium 3.7 (3.6-5.0) MMOL/L Chloride 103 (98-107) mmol/L Carbon Dioxide 25 (22-30) mmol/L Anion Gap 8 L (10-20) BUN 14 (9-20) mg/dl Creatinine 0.6 L (0.8-1.5) mg/dL Est GFR ( Amer) > 60 Est GFR (Non-Af Amer) > 60 Random Glucose 93 (75-110) mg/dL Calcium 7.7 L (8.4-10.2) mg/dL Total Bilirubin 14.3 H (0.2-1.3) mg/dl AST 85 H (17-59) U/L ALT 49 (21-72) U/L Alkaline Phosphatase 85 (38-126) U/L Total Creatine Kinase 287 H (55-170) U/L Total Protein 6.3 (6.3-8.2) G/DL Albumin 2.7 L (3.5-5.0) g/dL Globulin 3.6 (2.2-3.9) gm/dL Albumin/Globulin Ratio 0.8 L (1.0-2.1) Urine Color (YELLOW) Urine Clarity (Clear) Urine pH (5.0-8.0) Ur Specific Donovan (1.003-1.030) Urine Protein (NEGATIVE) mg/dL Urine Glucose (UA) (Normal) mg/dL Urine Ketones (NEGATIVE) mg/dL Urine Blood (NEGATIVE) Urine Nitrate (NEGATIVE) Urine Bilirubin (NEGATIVE) Urine Urobilinogen (0.2-1.0) mg/dL Ur Leukocyte Esterase (Negative) Florence/uL Urine RBC (Auto) (0-3) /hpf Urine Microscopic WBC (0-5) /hpf Ur Squamous Epith Cells (0-5) /hpf Urine Bacteria (<OCC) Blood Type Antibody Screen Antibody Identification Crossmatch BBK History Checked 01/19/17 01/19/17 01/17/17 Range/Units 21:00 04:20 06:30 WBC (4.8-10.8) K/uL RBC (4.40-5.90) Mil/uL Hgb (12.0-18.0) g/dL Hct (35.0-51.0) % MCV (80.0-94.0) fl MCH (27.0-31.0) pg MCHC (33.0-37.0) g/dL RDW (11.5-14.5) % Plt Count (130-400) K/uL Haptoglobin <15 L (43-212) mg/dL PT (9.8-13.1) Seconds INR (0.9-1.2) APTT (25.6-37.1) Seconds Fibrinogen (200-400) mg/dl Sodium (132-148) mmol/l Potassium (3.6-5.0) MMOL/L Chloride (98-107) mmol/L Carbon Dioxide (22-30) mmol/L Anion Gap (10-20) BUN (9-20) mg/dl Creatinine (0.8-1.5) mg/dL Est GFR ( Amer) Est GFR (Non-Af Amer) Random Glucose (75-110) mg/dL Calcium (8.4-10.2) mg/dL Total Bilirubin (0.2-1.3) mg/dl AST (17-59) U/L ALT (21-72) U/L Alkaline Phosphatase (38-126) U/L Total Creatine Kinase (55-170) U/L Total Protein (6.3-8.2) G/DL Albumin (3.5-5.0) g/dL Globulin (2.2-3.9) gm/dL Albumin/Globulin Ratio (1.0-2.1) Urine Color Yuni (YELLOW) Urine Clarity Slighty-cloudy (Clear) Urine pH 6.0 (5.0-8.0) Ur Specific Donovan 1.024 (1.003-1.030) Urine Protein Negative (NEGATIVE) mg/dL Urine Glucose (UA) Neg (Normal) mg/dL Urine Ketones Negative (NEGATIVE) mg/dL Urine Blood Small (NEGATIVE) Urine Nitrate Negative (NEGATIVE) Urine Bilirubin Moderate (NEGATIVE) Urine Urobilinogen 4.0 (0.2-1.0) mg/dL Ur Leukocyte Esterase Neg (Negative) Florence/uL Urine RBC (Auto) 2 (0-3) /hpf Urine Microscopic WBC 3 (0-5) /hpf Ur Squamous Epith Cells < 1 (0-5) /hpf Urine Bacteria Rare (<OCC) Blood Type O POSITIVE Antibody Screen Positive Antibody Identification Anti Radha Crossmatch See Detail BBK History Checked Patient has bt Laboratory Results - last 24 hr 01/17/17 01/19/1701/19/17 06:30 04:20 21:00 WBC RBC Hgb Hct MCV MCH MCHC RDW Plt Count Haptoglobin <15 L PT INR APTT Fibrinogen Sodium Potassium Chloride Carbon Dioxide Anion Gap BUN Creatinine Est GFR ( Amer) Est GFR (Non-Af Amer) Random Glucose Calcium Total Bilirubin AST ALT Alkaline Phosphatase Total Creatine Kinase Total Protein Albumin Globulin Albumin/Globulin Ratio Urine Color Yuni Urine Clarity Slighty-cloudy Urine pH 6.0 Ur Specific Donovan 1.024 Urine Protein Negative Urine Glucose (UA) Neg Urine Ketones Negative Urine Blood Small Urine Nitrate Negative Urine Bilirubin Moderate Urine Urobilinogen 4.0 Ur Leukocyte Esterase Neg Urine RBC (Auto) 2 Urine Microscopic WBC 3 Ur Squamous Epith Cells < 1 Urine Bacteria Rare Blood Type O POSITIVE Antibody Screen Positive Antibody Identification Anti Radha Crossmatch See Detail BBK History Checked Patient has bt 01/20/17 01/20/17 01/20/17 04:25 04:25 04:25 WBC 3.4 L RBC 2.20 L Hgb 7.0 L Hct 20.6 L MCV 94.0 MCH 31.8 H MCHC 33.8 RDW 17.6 H Plt Count 58 L Haptoglobin PT 22.4 H INR 2.1 H APTT 37.6 H Fibrinogen 142 L* Sodium 132 Potassium 3.7 Chloride 103 Carbon Dioxide 25 Anion Gap 8 L BUN 14 Creatinine 0.6 L Est GFR ( Amer) > 60 Est GFR (Non-Af Amer) > 60 Random Glucose 93 Calcium 7.7 L Total Bilirubin 14.3 H AST 85 H ALT 49 Alkaline Phosphatase 85 Total Creatine Kinase 287 H Total Protein 6.3 Albumin 2.7 L Globulin 3.6 Albumin/Globulin Ratio 0.8 L Urine Color Urine Clarity Urine pH Ur Specific Donovan Urine Protein Urine Glucose (UA) Urine Ketones Urine Blood Urine Nitrate Urine Bilirubin Urine Urobilinogen Ur Leukocyte Esterase Urine RBC (Auto) Urine Microscopic WBC Ur Squamous Epith Cells Urine Bacteria Blood Type Antibody Screen Antibody Identification Crossmatch BBK History Checked Review of Systems - EENT Eyes: As Per HPI - Cardiovascular Cardiovascular: As Per HPI - Respiratory Respiratory: As Per HPI - Gastrointestinal Gastrointestinal: As Per HPI - Musculoskeletal Musculoskeletal: As Par HPI - Neurological Neurological: As Per HPI Critical Care Progress Note - Nutrition Nutrition: Nutrition Category Date Time Status Regular Diet [DIET] Diets 01/16/17 Lunch Active Assessment/Plan - Assessment and Plan (Free Text) Plan: 51 yo M with PMH liver cirrhosis secondary to alcohol abuse, seizures admitted for right thigh hematoma. Patient in ICU under management for coagulopathy Assessment/Plan: 1)Right Thigh Hematoma -stable,ecchymosis right abdomen/flank/groin and genitalia. -CT abd: Intramuscular hemorrhage into right iliopsoas.extensive subcutaneous edema over R lat abd wall and lat thigh -Surgery consult appreciated, no surgery intervention at this time 2)Liver Cirrhosis -likely secondary to alcohol abuse, likely cause of coagulopathic process and splenic sequestration -Meld-Na+ score: 27 -Somnolent and lethargic today. Ammonia 62. -Lactulose given today -f/u pt/inr, ptt, fibrinogen 3)Pancytopenia -labs reviewed WBC 3.4 Hgb 7.0 Platelets 58 -possible hemolytic process given patients reticulocyte count and jaundice. -INR 2.1 -fibrinogen 142 -Reticulocyte count 7.6%, haptoglobin <15 (low) -Hem-Onc consult appreciated: Procript (epoetin) 20 000 U sc -F/u CBC,CMP, HIV 4) Acute anemia -secondary to hemolytic process and splenic sequestration -S/P 2U RBC transfusion, vitK, cryop yesterday -PCC(Kcentra) today and Vit K -Hgb 7 today -Hem-Onc appreciated -f/U CBC, CMP, ferritin, folic acid, vit B12 5)Alcohol Abuse -CIWA score 0 -Alcohol level was 11 at admission -Monitor for withdrawal 6)History of seizures -last episode 2 days prior to admission -Continue home meds: Keppra -Keppra level ordered, still pending -Monitor for seizures 7)DVT prophylaxis -SCDs <Anders Correia - Last Filed: 01/20/17 16:58> Assessment/Plan - Assessment and Plan (Free Text) Assessment: Attestation: Patient seen and examined at the bedside with Resident Dr. James Moreno, and I agree with his outline of plans and management as documented and discussed on AM rounds reflecting my review of all applicable clinical data, and participation in the care of the patient throughout the day in ICU; today, January 20, 2017.
[2017-01-20] MEDS: Multiple Vitamins Oral Solution PO SCH (08:19)
[2017-01-20] MEDS ORDERED: Phytonadione 10 mg/ml Inj (Adult) IVPB ONE (08:35)
[2017-01-20] MEDS ORDERED: [UNRECOGNIZED DRUG - OTHER] IV ONE (09:30)
[2017-01-20] MEDS ORDERED: HUM PROTHROMBIN CPLX IV ONE (09:30)
[2017-01-20] MEDS ORDERED: STERILE WATER IV ONE (09:30)
--- NOTE | 2017-01-20 10:37 | CP.PCM.PN ---
Subjective - Date & Time of Evaluation Date of Evaluation: 01/20/17 Time of Evaluation: 08:00 - Subjective Subjective: Overnight: did not sleep well. Patient seen and examined bedside this AM. Appears somnolent this AM, but is arousable and oriented to place and time. Continues to have pain. He is more jaundiced this AM and the ecchymosis of flank/abdomen appears minimally improved. Ecchymosis of RLE is slightly worse. Non palpable pulses of right foot, however +DP and PT on sono. Objective - Vital Signs/Intake and Output Vital Signs (last 24 hours): Temp Pulse Resp BP Pulse Ox 98.5 F 85 11 L 105/73 99 01/20/17 04:00 01/20/17 08:00 01/20/17 08:00 01/20/17 08:00 01/20/17 08:00 - Medications Medications: Current Medications Folic Acid (Folic Acid) 1 mg PO DAILY [facility] Last Admin: 01/20/17 09:24 Dose: 1 mg Lactulose (Enulose) 20 gm PO BID PRN PRN Reason: Constipation Levetiracetam (Keppra) 500 mg PO BID [facility] Last Admin: 01/20/17 09:24 Dose: 500 mg Morphine Sulfate (Morphine) 2 mg IVP Q4 PRN PRN Reason: Pain, severe (8-10) Last Admin: 01/20/17 01:53 Dose: 2 mg Multivitamins/Vitamin C (Multi-Delyn Liquid) 5 ml PO DAILY [facility] Last Admin: 01/20/17 08:19 Dose: Not Given Pantoprazole Sodium (Protonix Inj) 40 mg IVP Q12 [facility] Last Admin: 01/20/17 08:18 Dose: 40 mg Thiamine HCl (Vitamin B1 Tab) 100 mg PO DAILY [facility] Last Admin: 01/20/17 09:24 Dose: 100 mg Tramadol HCl (Ultram) 100 mg PO Q6 PRN PRN Reason: Pain, moderate (4-7) Last Admin: 01/20/17 03:57 Dose: 100 mg - Labs Labs: 01/20/17 04:25 01/20/17 04:25 PT 22.4 Seconds (9.8-13.1) H 01/20/17 04:25 INR 2.1 (0.9-1.2) H 01/20/17 04:25 APTT 37.6 Seconds (25.6-37.1) H 01/20/17 04:25 - Constitutional Appears: Toxic (jaundiced, somnolent but arousable) - Head Exam Head Exam: NORMAL INSPECTION - Eye Exam Eye Exam: Scleral icterus - Respiratory Exam Respiratory Exam: Clear to Ausculation Bilateral, NORMAL BREATHING PATTERN - Cardiovascular Exam Cardiovascular Exam: REGULAR RHYTHM (sinus tachy:high 90s), Murmur - GI/Abdominal Exam Additional comments: +BS, has mildly improving ecchymosis - Rectal Exam Rectal Exam: Deferred - Exam Additional comments: +erythema of genitalia - Extremities Exam Additional comments: right lower extremity edema, pitting, pulses +on sono (DP/PT) - Neurological Exam Neurological Exam: Awake, Oriented x3 - Skin Skin Exam: Dry, Intact Additional comments: ecchymosis and right flank/groin and genitalia Assessment and Plan - Assessment and Plan (Free Text) Assessment: 51 yo M with PMH liver cirrhosis secondary to alcohol abuse, seizures admitted for right thigh hematoma. More somnolent this morning, ordered ammonia level. Hg Stable at 7.0. INR stable at 2.1. Edema appears to be improving and ecchymosis mildly improved. Continue to monitor for compartment syndrome. Will give lactulose for high ammonia level. Plan: Right Thigh Hematoma -stable,ecchymosis right abdomen/flank/groin and genitalia. leg edema appears improved. Will get PCC today. received cryoppt yesterday. -Monitor for compartment syndrome -personal service workers recommendations appreciated. Liver Cirrhosis -likely secondary to alcohol abuse, likely cause of coagulopathic process. -Meld-Na+ score: 27 -high ammonia but overall trending down: level today: 63, will give lactulose and monitor Pancytopenia -possible hemolytic process given patients reticulocyte count and jaundice. INR and fibrinogen stable. -Hg Stable today. -Reticulocyte count 7.6%, haptoglobin <15 (low) -Fecal occult + -GI consult placed -Monitor H/H and coags Alcohol Abuse -CIWA score 0 -Alcohol level was 11 at admission -Monitor for withdrawal History of seizures -last episode 2 days prior to admission -Continue home meds: Keppra -Keppra level ordered, still pending -Monitor for seizures DVT prophylaxis -SCDs
[2017-01-20] MEDS ORDERED: Lactulose 10 gm/15 ml Syrup PO ONE (12:00)
--- NOTE | 2017-01-20 12:06 | CP.PCM.PN ---
Subjective - Date & Time of Evaluation Date of Evaluation: 01/20/17 Time of Evaluation: 12:00 - Subjective Subjective: Slightly drowsy today, has right leg pain. Objective - Vital Signs/Intake and Output Vital Signs (last 24 hours): Temp Pulse Resp BP Pulse Ox 98.5 F 85 11 L 105/73 99 01/20/17 04:00 01/20/17 08:00 01/20/17 08:00 01/20/17 08:00 01/20/17 08:00 - Medications Medications: Current Medications Epoetin Brian (Procrit) 20,000 unit SC ONCE ONE Stop: 01/20/17 12:31 Folic Acid (Folic Acid) 1 mg PO DAILY [facility] Last Admin: 01/20/17 09:24 Dose: 1 mg Lactulose (Enulose) 10 gm PO ONCE ONE Stop: 01/20/17 12:01 Levetiracetam (Keppra) 500 mg PO BID [facility] Last Admin: 01/20/17 09:24 Dose: 500 mg Morphine Sulfate (Morphine) 2 mg IVP Q4 PRN PRN Reason: Pain, severe (8-10) Last Admin: 01/20/17 01:53 Dose: 2 mg Multivitamins/Vitamin C (Multi-Delyn Liquid) 5 ml PO DAILY [facility] Last Admin: 01/20/17 08:19 Dose: Not Given Pantoprazole Sodium (Protonix Inj) 40 mg IVP Q12 [facility] Last Admin: 01/20/17 08:18 Dose: 40 mg Thiamine HCl (Vitamin B1 Tab) 100 mg PO DAILY [facility] Last Admin: 01/20/17 09:24 Dose: 100 mg Tramadol HCl (Ultram) 100 mg PO Q6 PRN PRN Reason: Pain, moderate (4-7) Last Admin: 01/20/17 03:57 Dose: 100 mg - Labs Labs: 01/20/17 04:25 01/20/17 04:25 PT 22.4 Seconds (9.8-13.1) H 01/20/17 04:25 INR 2.1 (0.9-1.2) H 01/20/17 04:25 APTT 37.6 Seconds (25.6-37.1) H 01/20/17 04:25 - Head Exam Head Exam: ATRAUMATIC - Eye Exam Eye Exam: Normal appearance - ENT Exam ENT Exam: Mucous Membranes Dry - Respiratory Exam Respiratory Exam: NORMAL BREATHING PATTERN - Cardiovascular Exam Cardiovascular Exam: +S1, +S2 - GI/Abdominal Exam GI & Abdominal Exam: Normal Bowel Sounds - Extremities Exam Additional comments: right leg swelling and pain Assessment and Plan (1) Thigh hematoma Assessment & Plan: s/p PRBC, FFP, cryopercipitate, desmopressin, and vit k for Kcentra today Status: Acute (2) Anemia Assessment & Plan: bleeding, splenic sequestration, chronic disease hypoproliferative erythroid response based on retic index < 2; will give procrit 20,000U subq today Status: Acute (3) Coagulopathy Assessment & Plan: liver disease s/p FFP and cryopercipitate Status: Acute (4) Thrombocytopenia Assessment & Plan: liver disease, splenic sequestration s/p plt transfusion Status: Acute
[2017-01-20] MEDS ORDERED: Epoetin Alfa 20000 UNIT/ML Inj SC ONE (12:30)
[2017-01-20 15:10] LABS: LEVETIRACETAM 8.8 mcg/mL
--- NOTE | 2017-01-20 17:18 | CARD ---
APPROVED REPORT EXAM: Two-dimensional and M-mode echocardiogram with Doppler and color Doppler. Other Information Quality : FairRhythm : NSR Technically limited study due to Poor Echo Window INDICATION Murmur 2D DIMENSIONS IVSd1.05 (0.7-1.1cm)LVDd4.98 (3.9-5.9cm) PWd1.18 (0.7-1.1cm)IVSs1.51 (0.8-1.2cm) LVDs2.97 (2.5-4.0cm)FS (%) 40.3 % PWs1.46 (0.8-1.2cm) M-Mode DIMENSIONS Left Atrium (MM)3.59 (2.5-4.0cm)IVSd0.88 (0.7-1.1cm) Aortic Root3.29 (2.2-3.7cm)LVDd6.15 (4.0-5.6cm) Aortic Cusp Exc.1.97 (1.5-2.0cm)PWd1.00 (0.7-1.1cm) IVSs1.00 cmFS (%) 33 % LVDs4.15 (2.0-3.8cm)PWs1.74 cm Mitral Valve E/A ratio0.0 TDI E/Lateral E'0.0E/Medial E'0.0 LEFT VENTRICLE The left ventricle is normal size. There is normal left ventricular wall thickness. The left ventricular function is normal. The left ventricular ejection fraction is 60% There is normal LV segmental wall motion. The left ventricular diastolic function is normal. No left ventricle thrombus noted on this study. There is no ventricular septal defect visualized. There is no left ventricular aneurysm. There is no mass noted in the left ventricle. RIGHT VENTRICLE The right ventricle is normal size. There is normal right ventricular wall thickness. The right ventricular systolic function is normal. ATRIA The left atrium size is normal. The right atrium size is normal. The interatrial septum is intact with no evidence for an atrial septal defect. AORTIC VALVE The aortic valve is normal in structure and function. No aortic regurgitation is present. There is no aortic valvular stenosis. There is no aortic valvular vegetation. MITRAL VALVE The mitral valve is normal in structure and function. There is no evidence of mitral valve prolapse. There is no mitral valve stenosis. There is no mitral valve regurgitation noted. TRICUSPID VALVE The tricuspid valve is normal in structure and function. There is no tricuspid valve regurgitation noted. There is no tricuspid valve prolapse or vegetation. There is no tricuspid valve stenosis. PULMONIC VALVE The pulmonary valve is normal in structure and function. There is no pulmonic valvular regurgitation. There is no pulmonic valvular stenosis. GREAT VESSELS The aortic root is normal in size. The ascending aorta is normal in size. The IVC is normal in size and collapses >50% with inspiration. PERICARDIAL EFFUSION The pericardium appears normal. There is no pleural effusion. <Conclusion> Normal Echocardiogram
[2017-01-20 17:40] LABS: HEMOGLOBIN 6.8 g/dL (12.0-18.0); MEAN CELL VOLUME 94.3 fl (80.0-94.0); MEAN CORPUSCULAR HEMOGLOBIN 32.2 pg (27.0-31.0); MEAN CORPUSCULAR HGB CONC 34.2 g/dL (33.0-37.0); RBC 2.12 Mil/uL (4.40-5.90); RED CELL DISTRIBUTION WIDTH 17.7 % (11.5-14.5); WHITE BLOOD COUNT 3.7 K/uL (4.8-10.8)
[2017-01-21 05:26] LABS: MEAN CELL VOLUME 95.5 fl (80.0-94.0); MEAN CORPUSCULAR HEMOGLOBIN 32.2 pg (27.0-31.0); MEAN CORPUSCULAR HGB CONC 33.7 g/dL (33.0-37.0); RBC 2.18 Mil/uL (4.40-5.90); RED CELL DISTRIBUTION WIDTH 18.9 % (11.5-14.5); WHITE BLOOD COUNT 3.8 K/uL (4.8-10.8)
[2017-01-21 05:38] LABS: ALB/GLOB RATIO 0.8 (1.0-2.1); ALBUMIN 2.7 g/dL (3.5-5.0); ALT/SGPT 49 U/L (21-72); AST/SGOT 91 U/L (17-59); BLOOD UREA NITROGEN 11 mg/dl (9-20); CALCIUM 7.9 mg/dL (8.4-10.2); GFR AFRICAN-AMERICAN > 60; GFR NON-AFRICAN AMERICAN > 60
[2017-01-21 06:15] LABS: PARTIAL THROMBOPLASTIN TIME 39.8 Seconds (25.6-37.1); PROTHROMBIN TIME 20.7 Seconds (9.8-13.1)
--- NOTE | 2017-01-21 07:13 | CP.CCUPN ---
<Nishant Moreno - Last Filed: 01/21/17 15:58> CCU Subjective - Physician Review Subjective (Free Text): 01/21/17 08:11 Patient seen and examined bedside. Somnolent and lethargic in the morning but arousable and oriented. Denies chest pain, SOB, N/V/D. More Jaundiced compared with yesterday, with right leg swelling from foot to thigh, echymosis right flank abd and left hip. CCU Objective - Vital Signs / Intake & Output Vital Signs (Last 4 hours): Vital Signs Temp Pulse Resp BP Pulse Ox 01/21/17 06:00 99 H 12 122/64 100 01/21/17 04:00 98.2 F 122 H 10 L 138/122 H 96 Intake and Output (Last 8hrs): Intake & Output 01/20/17 01/21/17 01/21/17 22:59 06:59 14:59 Intake Total 555 Output Total 600 150 Balance -45 -150 Intake: IV 20 Intake, Piggyback 175 Oral 360 Output: Urine 600 150 Urine, Voided 600 150 Other: # Voids Urine, Voided 1 # Bowel Movements 0 - Physical Exam Head: Positive for: Normocephalic Pupils: Positive for: PERRL Extroacular Muscles: Positive for: EOMI, Other (Conjunctival jaundice) Conjunctiva: Positive for: Icteric. Negative for: Injected Pharnyx: Positive for: Normal. Negative for: ERYTHEMA, EXUDATE Neck: Negative for: JVD, Lymphadenopathy Respiratory/Chest: Positive for: Good Air Exchange (Mild decrease breath entry B /L), Decreased Breath Sounds. Negative for: Wheezes, Rales Cardiovascular: Positive for: Regular Rate and Rhythm, Murmurs (systolic 2/6 over left sternal border), Tachycardic Abdomen: Positive for: Other (ecchymosis of right flank abdomen). Negative for : Tenderness, Distention, Normal Bowel Sounds Genitourinary Male: Positive for: Penile Swelling, Testicle Swelling ( Ecchymosis penis and scrotal ), Other (groin ecchymosis) Lower Extremity: Positive for: Edema, CALF TENDERNESS, Swelling (swelling from foot to thigh right side, Pedal edema 2+), Other (Ecchymosis of RLE lateral side thigh and left hip ). Negative for: Cyanosis Neurological: Positive for: GCS=15, CN II-XII Intact, Motor Func Grossly Intact , Normal Sensory Function Skin: Positive for: Warm, Hot, Other (jaundice,ecchymosis right flank, RLE). Negative for: Rashes Psychiatric: Positive for: Oriented x 3, Other (lethargic) - Medications Active Medications: Active Medications Generic Name Dose Route Start Last Admin Trade Name Freq PRN Reason Stop Dose Admin Folic Acid 1 mg 01/16/17 11:30 01/20/17 09:24 Folic Acid PO 1 mg DAILY JANNIE Administration Lactulose 20 gm 01/20/17 15:11 Enulose PO BID PRN Constipation Levetiracetam 500 mg 01/16/17 09:00 01/20/17 16:41 Keppra PO 500 mg BID JANNIE Administration Morphine Sulfate 2 mg 01/15/17 20:32 01/21/17 06:14 Morphine IVP 2 mg Q4 PRN Administration Pain, severe (8-10) Multivitamins/Vitamin C 5 ml 01/16/17 11:30 01/20/17 08:19 Multi-Delyn Liquid PO Not Given DAILY JANNIE Pantoprazole Sodium 40 mg 01/15/17 21:00 01/20/17 21:04 Protonix Inj IVP 40 mg Q12 JANNIE Administration Thiamine HCl 100 mg 01/16/17 11:30 01/20/17 09:24 Vitamin B1 Tab PO 100 mg DAILY JANNIE Administration Tramadol HCl 100 mg 01/15/17 20:32 01/21/17 00:28 Ultram PO 100 mg Q6 PRN Administration Pain, moderate (4-7) - Patient Studies Lab Studies: Lab Studies 01/21/17 01/21/17 01/21/17 Range/Units 04:30 04:30 04:30 WBC 3.8 L (4.8-10.8) K/uL RBC 2.18 L (4.40-5.90) Mil/uL Hgb 7.0 L (12.0-18.0) g/dL Hct 20.8 L (35.0-51.0) % MCV 95.5 H (80.0-94.0) fl MCH 32.2 H (27.0-31.0) pg MCHC 33.7 (33.0-37.0) g/dL RDW 18.9 H (11.5-14.5) % Plt Count 61 L (130-400) K/uL Haptoglobin (43-212) mg/dL PT 20.7 H (9.8-13.1) Seconds INR 2.0 H (0.9-1.2) APTT 39.8 H (25.6-37.1) Seconds Fibrinogen 153 L (200-400) mg/dl Sodium 132 (132-148) mmol/l Potassium 4.0 (3.6-5.0) MMOL/L Chloride 103 (98-107) mmol/L Carbon Dioxide 23 (22-30) mmol/L Anion Gap 10 (10-20) BUN 11 (9-20) mg/dl Creatinine 0.5 L (0.8-1.5) mg/dL Est GFR ( Amer) > 60 Est GFR (Non-Af Amer) > 60 Random Glucose 90 (75-110) mg/dL Calcium 7.9 L (8.4-10.2) mg/dL Ferritin 367.0 ng/mL Total Bilirubin 16.6 H (0.2-1.3) mg/dl AST 91 H (17-59) U/L ALT 49 (21-72) U/L Alkaline Phosphatase 88 (38-126) U/L Ammonia (16-60) umo/L Total Protein 6.4 (6.3-8.2) G/DL Albumin 2.7 L (3.5-5.0) g/dL Globulin 3.6 (2.2-3.9) gm/dL Albumin/Globulin Ratio 0.8 L (1.0-2.1) Vitamin B12 923 (239-931) pg/mL Levetiracetam mcg/mL 01/20/17 01/20/17 01/19/17 Range/Units 17:15 10:30 04:20 WBC 3.7 L (4.8-10.8) K/uL RBC 2.12 L (4.40-5.90) Mil/uL Hgb 6.8 L (12.0-18.0) g/dL Hct 20.0 L (35.0-51.0) % MCV 94.3 H (80.0-94.0) fl MCH 32.2 H (27.0-31.0) pg MCHC 34.2 (33.0-37.0) g/dL RDW 17.7 H (11.5-14.5) % Plt Count 58 L (130-400) K/uL Haptoglobin <15 L (43-212) mg/dL PT (9.8-13.1) Seconds INR (0.9-1.2) APTT (25.6-37.1) Seconds Fibrinogen (200-400) mg/dl Sodium (132-148) mmol/l Potassium (3.6-5.0) MMOL/L Chloride (98-107) mmol/L Carbon Dioxide (22-30) mmol/L Anion Gap (10-20) BUN (9-20) mg/dl Creatinine (0.8-1.5) mg/dL Est GFR ( Amer) Est GFR (Non-Af Amer) Random Glucose (75-110) mg/dL Calcium (8.4-10.2) mg/dL Ferritin ng/mL Total Bilirubin (0.2-1.3) mg/dl AST (17-59) U/L ALT (21-72) U/L Alkaline Phosphatase (38-126) U/L Ammonia 62 H (16-60) umo/L Total Protein (6.3-8.2) G/DL Albumin (3.5-5.0) g/dL Globulin (2.2-3.9) gm/dL Albumin/Globulin Ratio (1.0-2.1) Vitamin B12 (239-931) pg/mL Levetiracetam mcg/mL 01/16/17 Range/Units 09:30 WBC (4.8-10.8) K/uL RBC (4.40-5.90) Mil/uL Hgb (12.0-18.0) g/dL Hct (35.0-51.0) % MCV (80.0-94.0) fl MCH (27.0-31.0) pg MCHC (33.0-37.0) g/dL RDW (11.5-14.5) % Plt Count (130-400) K/uL Haptoglobin (43-212) mg/dL PT (9.8-13.1) Seconds INR (0.9-1.2) APTT (25.6-37.1) Seconds Fibrinogen (200-400) mg/dl Sodium (132-148) mmol/l Potassium (3.6-5.0) MMOL/L Chloride (98-107) mmol/L Carbon Dioxide (22-30) mmol/L Anion Gap (10-20) BUN (9-20) mg/dl Creatinine (0.8-1.5) mg/dL Est GFR ( Amer) Est GFR (Non-Af Amer) Random Glucose (75-110) mg/dL Calcium (8.4-10.2) mg/dL Ferritin ng/mL Total Bilirubin (0.2-1.3) mg/dl AST (17-59) U/L ALT (21-72) U/L Alkaline Phosphatase (38-126) U/L Ammonia (16-60) umo/L Total Protein (6.3-8.2) G/DL Albumin (3.5-5.0) g/dL Globulin (2.2-3.9) gm/dL Albumin/Globulin Ratio (1.0-2.1) Vitamin B12 (239-931) pg/mL Levetiracetam 8.8 mcg/mL Laboratory Results - last 24 hr 01/16/17 01/19/17 01/20/17 09:30 04:20 10:30 WBC RBC Hgb Hct MCV MCH MCHC RDW Plt Count Haptoglobin <15 L PT INR APTT Fibrinogen Sodium Potassium Chloride Carbon Dioxide Anion Gap BUN Creatinine Est GFR ( Amer) Est GFR (Non-Af Amer) Random Glucose Calcium Ferritin Total Bilirubin AST ALT Alkaline Phosphatase Ammonia 62 H Total Protein Albumin Globulin Albumin/Globulin Ratio Vitamin B12 Levetiracetam 8.8 01/20/17 01/21/17 01/21/17 17:15 04:30 04:30 WBC 3.7 L 3.8 L RBC 2.12 L 2.18 L Hgb 6.8 L 7.0 L Hct 20.0 L 20.8 L MCV 94.3 H 95.5 H MCH 32.2 H 32.2 H MCHC 34.2 33.7 RDW 17.7 H 18.9 H Plt Count 58 L 61 L Haptoglobin PT INR APTT Fibrinogen Sodium 132 Potassium 4.0 Chloride 103 Carbon Dioxide 23 Anion Gap 10 BUN 11 Creatinine 0.5 L Est GFR ( Amer) > 60 Est GFR (Non-Af Amer) > 60 Random Glucose 90 Calcium 7.9 L Ferritin 367.0 Total Bilirubin 16.6 H AST 91 H ALT 49 Alkaline Phosphatase 88 Ammonia Total Protein 6.4 Albumin 2.7 L Globulin 3.6 Albumin/Globulin Ratio 0.8 L Vitamin B12 923 Levetiracetam 01/21/17 04:30 WBC RBC Hgb Hct MCV MCH MCHC RDW Plt Count Haptoglobin PT 20.7 H INR 2.0 H APTT 39.8 H Fibrinogen 153 L Sodium Potassium Chloride Carbon Dioxide Anion Gap BUN Creatinine Est GFR ( Amer) Est GFR (Non-Af Amer) Random Glucose Calcium Ferritin Total Bilirubin AST ALT Alkaline Phosphatase Ammonia Total Protein Albumin Globulin Albumin/Globulin Ratio Vitamin B12 Levetiracetam Review of Systems - Cardiovascular Cardiovascular: As Per HPI - Respiratory Respiratory: As Per HPI Critical Care Progress Note - Ventilator Checklist PUD Prophalyxis: Yes DVT Prophylaxis: Yes - Nutrition Nutrition: Nutrition Category Date Time Status Regular Diet [DIET] Diets 01/16/17 Lunch Active Assessment/Plan - Assessment and Plan (Free Text) Plan: 51 yo M with PMH liver cirrhosis secondary to alcohol abuse, seizures admitted for right thigh hematoma. Patient in ICU under management for coagulopathy Assessment/Plan: 1)Right Thigh Hematoma -stable,ecchymosis right abdomen/flank/groin and genitalia. -CT abd: Intramuscular hemorrhage into right iliopsoas.extensive subcutaneous edema over R lat abd wall and lat thigh -Surgery consult appreciated, no surgery intervention at this time 2)Liver Cirrhosis -likely secondary to alcohol abuse, likely cause of coagulopathic process and splenic sequestration -Meld-Na+ score: 25 -Somnolent and lethargic today. Ammonia 62. will repeat 4pm -Lactulose 30 gm PO daily -Aldactone 25 mg PO daily -PT/PTT 20.7/39.8 INR 2 -f/u pt/inr, ptt, fibrinogen daily 3)Pancytopenia -labs reviewed WBC 3.8 Hgb 7.0 Platelets 61 -possible hemolytic process given patients reticulocyte count and jaundice. -INR 2.0 -fibrinogen 153 -Reticulocyte count 7.6%, haptoglobin <15 (low) -Hem-Onc consult appreciated: s/p Procript (epoetin) 20 000 U sc. Aminocaproic acid started today -HIV neg -Stop Keppra -Vit K 5 mg PO TU,ERIN,Sat -F/u CBC,CMP 4) Acute anemia -secondary to hemolytic process and splenic sequestration -S/P 2U RBC transfusion, vitK, cryop, PCC(Kcentra) -Hgb 7 -Hem-Onc appreciated -[place] direct neg. no autoimmune hemolytic anemia -ferritin high.(possible secondary to acute reactant face inflammation process) -Vit B12 normal -f/U CBC, CMP, , folic acid 5)Alcohol Abuse -CIWA score 0 -Alcohol level was 11 at admission -Monitor for withdrawal 6)History of seizures -last episode 2 days prior to admission.ETOH related? -STOP Keppra.may cause pancytopenia -Keppra level 8.8 normal -Monitor for seizures 7)DVT prophylaxis <Anders Correia - Last Filed: 01/21/17 18:40> Assessment/Plan - Assessment and Plan (Free Text) Assessment: Attestation: Patient seen and examined at the bedside with Resident Dr. James Moreno, and I agree with his outline of plans and management as documented and discussed on AM rounds reflecting my review of all applicable clinical data, and participation in the care of the patient throughout the day in ICU; today, January 21, 2017. Repeat HGB at 4PM shows HGb at 6.7. There is no new active bleeding evident, but possible new area of ecchymosis noted over left lateral hip area and outlined with marker to assess for any change in size over the next few days. Amicar therapy initiated by Hematology, and after discussion with Heme and PMD, consensus decision made to observe and follow serial repeat HGB in AM for now as he remains stable, and asymptomatic of any further significant drop in HGB.
[2017-01-21] MEDS: Multiple Vitamins Oral Solution PO SCH (08:46)
--- NOTE | 2017-01-21 09:54 | CP.PCM.PN ---
Subjective - Date & Time of Evaluation Date of Evaluation: 01/21/17 Time of Evaluation: 07:00 - Subjective Subjective: No acute events overnight. Patient seen and examined bedside. More somnolent but arousable, minimally responsive to questions. Appears more jaundiced. Pain is controlled. Respiratory rate is btw 10-13. HR 100s, SPO2 98%. BP 110s-120s systolic. Case d/w ICU team. Will hold keppra, start vitamin K //Sat, start lactulose daily. Objective - Vital Signs/Intake and Output Vital Signs (last 24 hours): Temp Pulse Resp BP Pulse Ox 98.3 F 95 H 10 L 116/67 88 L 01/21/17 08:35 01/21/17 08:35 01/21/17 08:35 01/21/17 08:35 01/21/17 08:35 Intake and Output: 01/21/17 01/21/17 06:59 18:59 Intake Total 20 Output Total 300 Balance -280 - Medications Medications: Current Medications Folic Acid (Folic Acid) 1 mg PO DAILY [facility] Last Admin: 01/21/17 08:45 Dose: 1 mg Lactulose (Enulose) 20 gm PO BID PRN PRN Reason: Constipation Last Admin: 01/21/17 08:45 Dose: 20 gm Levetiracetam (Keppra) 500 mg PO BID [facility] Last Admin: 01/21/17 08:45 Dose: 500 mg Morphine Sulfate (Morphine) 2 mg IVP Q4 PRN PRN Reason: Pain, severe (8-10) Last Admin: 01/21/17 06:14 Dose: 2 mg Multivitamins/Vitamin C (Multi-Delyn Liquid) 5 ml PO DAILY [facility] Last Admin: 01/21/17 08:46 Dose: 5 ml Pantoprazole Sodium (Protonix Inj) 40 mg IVP Q12 [facility] Last Admin: 01/21/17 08:45 Dose: 40 mg Thiamine HCl (Vitamin B1 Tab) 100 mg PO DAILY [facility] Last Admin: 01/21/17 08:45 Dose: 100 mg Tramadol HCl (Ultram) 100 mg PO Q6 PRN PRN Reason: Pain, moderate (4-7) Last Admin: 01/21/17 00:28 Dose: 100 mg - Labs Labs: 01/21/17 04:30 01/21/17 04:30 PT 20.7 Seconds (9.8-13.1) H 01/21/17 04:30 INR 2.0 (0.9-1.2) H 01/21/17 04:30 APTT 39.8 Seconds (25.6-37.1) H 01/21/17 04:30 - Constitutional Appears: Toxic (jaundice, somnolent but arousable) - Eye Exam Eye Exam: Scleral icterus - ENT Exam ENT Exam: Mucous Membranes Dry - Respiratory Exam Respiratory Exam: Clear to Ausculation Bilateral, NORMAL BREATHING PATTERN - Cardiovascular Exam Cardiovascular Exam: REGULAR RHYTHM, +S1, +S2 - GI/Abdominal Exam GI & Abdominal Exam: Soft. absent: Distended, Guarding - Extremities Exam Extremities Exam: Pedal Edema (entire right lower extremity ), Tenderness (on RLE palpation) - Neurological Exam Additional comments: somnolent but responding - Skin Skin Exam: Dry, Intact Additional comments: jaundice, slightly improved ecchymosis of flank and groin, genitalia ecchymosis not improved. ecchymosis of RLE stable Assessment and Plan - Assessment and Plan (Free Text) Assessment: 51 yo M with PMH liver cirrhosis secondary to alcohol abuse, seizures admitted for right thigh hematoma. More somnolent this morning. anemia and coags are stable. Edema of leg improving and ecchymosis mildly improved. Pt has +pedal pulses. Continue to monitor for compartment syndrome. Will continue lactulose. Unclear why bilirubin continues to rise, hg is stable, direct asuncion negative. Plan: Right Thigh Hematoma -slowly improving, ecchymosis right abdomen/flank/groin have improved, however ecchymosis of genitalia persists. -leg edema appears improved. -case d/w nurse receptionist and recommendations appreciated. Liver Cirrhosis -likely secondary to alcohol abuse, likely cause of coagulopathic process -Meld-Na+ score: 27 -ammonia level was elevated, will start daily lactulose Pancytopenia -possible hemolytic process given patients reticulocyte count and jaundice. Hg, Pt/PTT/INR and fibrinogen stable -Monitor H/H and coags History of seizures -unclear etiology of seizures, will d/c keppra,as it is possible etiology of pancytopenia. -Keppra level ordered, therapeutic range -Monitor for seizures DVT prophylaxis -SCDs
[2017-01-21 12:29] LABS: HEPATITIS B SURFACE AG NEGATIVE (NEGATIVE)
[2017-01-21 12:34] LABS: HEPATITIS A IGM NEGATIVE (NEGATIVE); HEPATITIS B CORE AB NEGATIVE (NEGATIVE)
[2017-01-21] MEDS ORDERED: Aminocaproic Acid 5,000 MG in Dextrose 5% In Water 250 ML IV ONE ×2 (12:40→12:48)
[2017-01-21 12:46] LABS: HEPATITIS C ANTIBODY NEGATIVE (NEGATIVE)
--- NOTE | 2017-01-21 12:57 | CP.PCM.PN ---
Subjective - Date & Time of Evaluation Date of Evaluation: 01/21/17 Time of Evaluation: 12:00 - Subjective Subjective: Drowsy but arousable, jaundiced Objective - Vital Signs/Intake and Output Vital Signs (last 24 hours): Temp Pulse Resp BP Pulse Ox 99.2 F 99 H 27 H 125/52 L 100 01/21/17 12:17 01/21/17 12:17 01/21/17 12:17 01/21/17 12:17 01/21/17 12:17 Intake and Output: 01/21/17 01/21/17 06:59 18:59 Intake Total 20 100 Output Total 300 200 Balance -280 -100 - Medications Medications: Current Medications Folic Acid (Folic Acid) 1 mg PO DAILY [facility] Last Admin: 01/21/17 08:45 Dose: 1 mg Aminocaproic Acid 5,000 mg/ (Dextrose) 270 mls @ 54 mls/hr IV ONCE ONE Stop: 01/21/17 12:49 Aminocaproic Acid 19,000 mg/ (Dextrose) 1,076 mls @ 45 mls/hr IV ONCE ONE Stop: 01/22/17 12:42 Lactulose (Enulose) 20 gm PO BID PRN PRN Reason: Constipation Last Admin: 01/21/17 08:45 Dose: 20 gm Lactulose (Enulose) 30 gm PO DAILY [facility] Morphine Sulfate (Morphine) 2 mg IVP Q4 PRN PRN Reason: Pain, severe (8-10) Last Admin: 01/21/17 11:53 Dose: 2 mg Multivitamins/Vitamin C (Multi-Delyn Liquid) 5 ml PO DAILY [facility] Last Admin: 01/21/17 08:46 Dose: 5 ml Pantoprazole Sodium (Protonix Inj) 40 mg IVP Q12 JANNIE Last Admin: 01/21/17 08:45 Dose: 40 mg Phytonadione (Vitamin K Tab) 5 mg PO TTS [facility] Spironolactone (Aldactone) 25 mg PO DAILY [facility] Thiamine HCl (Vitamin B1 Tab) 100 mg PO DAILY [facility] Last Admin: 01/21/17 08:45 Dose: 100 mg Tramadol HCl (Ultram) 100 mg PO Q6 PRN PRN Reason: Pain, moderate (4-7) - Labs Labs: 01/21/17 04:30 01/21/17 04:30 PT 20.7 Seconds (9.8-13.1) H 01/21/17 04:30 INR 2.0 (0.9-1.2) H 01/21/17 04:30 APTT 39.8 Seconds (25.6-37.1) H 01/21/17 04:30 - Head Exam Head Exam: ATRAUMATIC - Eye Exam Eye Exam: Normal appearance - ENT Exam ENT Exam: Mucous Membranes Dry - Respiratory Exam Respiratory Exam: NORMAL BREATHING PATTERN - Cardiovascular Exam Cardiovascular Exam: +S1, +S2 - GI/Abdominal Exam GI & Abdominal Exam: Normal Bowel Sounds - Extremities Exam Extremities Exam: Pedal Edema Assessment and Plan (1) Thigh hematoma Assessment & Plan: H/H stable for past 24 hours s/p Kcentra yesterday will add antifibrinolysis drip today Status: Acute (2) Anemia Assessment & Plan: H/H stable for 24 hours s/p transfusion support and Procrit rising bilirubin noted; fractionate bilirubin tomorrow suspect indirect bilirubin related to absorption of thigh blood will review peripheral smear Status: Acute (3) Coagulopathy Assessment & Plan: liver disease s/p FFP and cryopercipitate Status: Acute (4) Thrombocytopenia Assessment & Plan: secondary to liver disease s/p plt transfusion Status: Acute
[2017-01-21 14:06] LABS: FOLATE 4.9 ng/mL
[2017-01-21 16:15] LABS: HEMOGLOBIN 6.7 g/dL (12.0-18.0); MEAN CELL VOLUME 96.3 fl (80.0-94.0); MEAN CORPUSCULAR HEMOGLOBIN 32.7 pg (27.0-31.0); RBC 2.04 Mil/uL (4.40-5.90); RED CELL DISTRIBUTION WIDTH 19.4 % (11.5-14.5); WHITE BLOOD COUNT 3.9 K/uL (4.8-10.8)
[2017-01-22 05:23] LABS: HEMOGLOBIN 7.4 g/dL (12.0-18.0)
[2017-01-22 05:24] LABS: MEAN CELL VOLUME 96.9 fl (80.0-94.0); MEAN CORPUSCULAR HEMOGLOBIN 32.6 pg (27.0-31.0); MEAN CORPUSCULAR HGB CONC 33.6 g/dL (33.0-37.0); RBC 2.27 Mil/uL (4.40-5.90); RED CELL DISTRIBUTION WIDTH 20.2 % (11.5-14.5); WHITE BLOOD COUNT 3.4 K/uL (4.8-10.8)
[2017-01-22 05:45] LABS: PARTIAL THROMBOPLASTIN TIME 36.8 Seconds (25.6-37.1); PROTHROMBIN TIME 21.2 Seconds (9.8-13.1)
[2017-01-22 05:53] LABS: ALB/GLOB RATIO 0.7 (1.0-2.1); ALBUMIN 2.7 g/dL (3.5-5.0); ALT/SGPT 48 U/L (21-72); AST/SGOT 89 U/L (17-59); BILIRUBIN,DIRECT 9.1 mg/ml (0.0-0.4); BLOOD UREA NITROGEN 9 mg/dl (9-20); CALCIUM 8.1 mg/dL (8.4-10.2); GFR AFRICAN-AMERICAN > 60; GFR NON-AFRICAN AMERICAN > 60; MAGNESIUM 1.3 MG/DL (1.6-2.3)
--- NOTE | 2017-01-22 07:07 | CP.PCM.PN ---
Subjective - Date & Time of Evaluation Date of Evaluation: 01/22/17 Time of Evaluation: 08:00 - Subjective Subjective: Overnight events: patient fell onto his knee while ambulating to bedside commode. Now on 1:1 Still somewhat somnolent, however more alert this AM. Oriented to person/place/ time. Continues to complain of pain in RLE. Vital signs are stable. Labs were reviewed, Hg stable, Coags stable, Ammonia trending down, bilirubin level continues to rise. Objective - Vital Signs/Intake and Output Vital Signs (last 24 hours): Temp Pulse Resp BP Pulse Ox 98.3 F 84 15 115/61 100 01/22/17 04:00 01/22/17 06:00 01/22/17 06:00 01/22/17 06:00 01/22/17 06:00 Intake and Output: 01/22/17 01/22/17 06:59 18:59 Intake Total 250 Output Total 400 Balance -150 - Medications Medications: Current Medications Folic Acid (Folic Acid) 1 mg PO DAILY [facility] Last Admin: 01/21/17 08:45 Dose: 1 mg Aminocaproic Acid 5,000 mg/ (Dextrose) 270 mls @ 54 mls/hr IV ONCE ONE Stop: 01/21/17 12:49 Aminocaproic Acid 19,000 mg/ (Dextrose) 1,076 mls @ 45 mls/hr IV ONCE ONE Stop: 01/22/17 12:42 Lactulose (Enulose) 20 gm PO BID PRN PRN Reason: Constipation Last Admin: 01/21/17 16:52 Dose: 20 gm Lactulose (Enulose) 30 gm PO DAILY [facility] Morphine Sulfate (Morphine) 2 mg IVP Q4 PRN PRN Reason: Pain, severe (8-10) Last Admin: 01/22/17 06:08 Dose: 2 mg Multivitamins/Vitamin C (Multi-Delyn Liquid) 5 ml PO DAILY [facility] Last Admin: 01/21/17 08:46 Dose: 5 ml Pantoprazole Sodium (Protonix Inj) 40 mg IVP Q12 [facility] Last Admin: 01/21/17 22:00 Dose: 40 mg Phytonadione (Vitamin K Tab) 5 mg PO TTS [facility] Last Admin: 01/21/17 13:38 Dose: 5 mg Spironolactone (Aldactone) 25 mg PO DAILY [facility] Last Admin: 01/21/17 13:38 Dose: 25 mg Thiamine HCl (Vitamin B1 Tab) 100 mg PO DAILY [facility]ANN[facility] Last Admin: 01/21/17 08:45 Dose: 100 mg Tramadol HCl (Ultram) 100 mg PO Q6 PRN PRN Reason: Pain, moderate (4-7) Last Admin: 01/21/17 16:01 Dose: 100 mg - Labs Labs: 01/22/17 04:20 01/22/17 04:20 PT 21.2 Seconds (9.8-13.1) H 01/22/17 04:20 INR 2.0 (0.9-1.2) H 01/22/17 04:20 APTT 36.8 Seconds (25.6-37.1) 01/22/17 04:20 - Constitutional Appears: Chronically Ill (worsening jaundice) - Head Exam Head Exam: ATRAUMATIC, NORMAL INSPECTION, NORMOCEPHALIC - Eye Exam Eye Exam: Scleral icterus - ENT Exam ENT Exam: Mucous Membranes Moist - Respiratory Exam Respiratory Exam: Decreased Breath Sounds - Cardiovascular Exam Cardiovascular Exam: REGULAR RHYTHM, +S1, +S2, Murmur - GI/Abdominal Exam GI & Abdominal Exam: Normal Bowel Sounds. absent: Guarding, Tenderness - Rectal Exam Rectal Exam: Deferred - Extremities Exam Additional comments: edema of entire right lower extremity, appears less swollen - Neurological Exam Neurological Exam: Awake, CN II-XII Intact, Oriented x3 - Skin Skin Exam: Dry Additional comments: jaundiced, ecchymosis of right flank/RLQ/groin extending to the back, appears less, marked today. Left HIP: moderate size ecchymosis, marked RLE: large ecchymotic area of lateral leg, marked today, anterior right knee ecchymosis, minimal, marked. Assessment and Plan (1) Thigh hematoma Status: Acute (2) Coagulopathy Status: Acute (3) Pancytopenia Status: Acute (4) Jaundice Status: Acute (5) Liver cirrhosis, alcoholic Status: Chronic (6) History of seizure Status: Chronic - Assessment and Plan (Free Text) Assessment: 51 yo M with PMH liver cirrhosis secondary to alcohol abuse, seizures admitted for right thigh hematoma, currently in the ICU for coagulopathy. Coagulopathy likely secondary to ?hemolytic process and splenic sequestration. His hg is improving. Patient is more alert this AM. His ecchymosis and edema slowly improving. Good response to low dose aldactone. He has has +pedal pulses, however will continue to monitor for compartment syndrome. Unclear why bilirubin continues to rise, possible that resorption of hematoma is causing increase in bilirubin. Meld-Na score: 27 Labs reviewed: H.4, stable, platelets stable, LDH trending up, Bilirubin trending up, fibrinogen level stable, INR stable 2.0, Mag is low Dr. Mack is following, recs aminocaproic acid. Case d/w [employer]. Right Thigh Hematoma Liver Cirrhosis Pancytopenia History of seizures DVT prophylaxis Plan: -Aldactone 25 mg daily -Lactulose daily -replace magnesium -Pain control, morphine/tramadol PRN -Monitor H/H and coags -Diana held -SCDs for DVT prophylaxis
--- NOTE | 2017-01-22 07:31 | CP.CCUPN ---
<Nishant Moreno - Last Filed: 01/22/17 15:33> CCU Subjective - Physician Review Subjective (Free Text): 01/22/17 08:36 Patient seen and examined bedside, looks less lethargic than yesterday, AAOx3, more jaundiced. Patient fell last night on her right knee while trying to transfer to commode to void. Denies before fall any dizziness, lightheadedness , Chest pain, SOB, chest, head or abdominal trauma . Reports right leg pain 9/ 10 intensity. New hematoma right knee anterior side s/p fall. denies knee pain, fever. Patient will be transfered to floor today CCU Objective - Vital Signs / Intake & Output Vital Signs (Last 4 hours): Vital Signs Temp Pulse Resp BP Pulse Ox 01/22/17 06:00 84 15 115/61 100 01/22/17 04:00 98.3 F 93 H 13 110/53 L 98 Intake and Output (Last 8hrs): Intake & Output 01/21/17 01/22/17 01/22/17 22:59 06:59 14:59 Intake Total 290 100 Output Total 300 100 Balance -10 0 Intake: IV 0 Oral 290 100 Output: Urine 300 100 Urine, Voided 300 100 Other: # Voids Urine, Voided 2 2 - Physical Exam Head: Positive for: Normocephalic Pupils: Positive for: PERRL Extroacular Muscles: Positive for: EOMI, Other (Conjunctival jaundice) Conjunctiva: Positive for: Icteric. Negative for: Injected Pharnyx: Positive for: Normal. Negative for: ERYTHEMA, EXUDATE Neck: Negative for: JVD, Lymphadenopathy Respiratory/Chest: Positive for: Good Air Exchange (Mild decrease breath entry B /L), Decreased Breath Sounds. Negative for: Wheezes, Rales Cardiovascular: Positive for: Regular Rate and Rhythm, Murmurs (systolic 2/6 over left sternal border), Tachycardic Abdomen: Positive for: Other (ecchymosis of right flank abdomen). Negative for : Tenderness, Distention, Normal Bowel Sounds Genitourinary Male: Positive for: Penile Swelling, Testicle Swelling ( Ecchymosis penis and scrotal ), Other (groin ecchymosis) Lower Extremity: Positive for: Edema, CALF TENDERNESS, Swelling (swelling from foot to thigh right side, Pedal edema 2+), Other (Ecchymosis of RLE lateral side thigh and left hip. Ecchymosis right knee anterior side ). Negative for: Cyanosis Neurological: Positive for: GCS=15, CN II-XII Intact, Motor Func Grossly Intact , Normal Sensory Function Skin: Positive for: Warm, Hot, Other (jaundice,ecchymosis right flank, RLE. echymosis left hip). Negative for: Rashes Psychiatric: Positive for: Oriented x 3, Other (lethargic) - Medications Active Medications: Active Medications Generic Name Dose Route Start Last Admin Trade Name Freq PRN Reason Stop Dose Admin Folic Acid 1 mg 01/16/17 11:30 01/21/17 08:45 Folic Acid PO 1 mg DAILY JANNIE Administration Aminocaproic Acid 5,000 mg/ 270 mls @ 54 mls/hr 01/21/17 12:48 Dextrose IV 01/21/17 12:49 ONCE ONE Aminocaproic Acid 19,000 mg/ 1,076 mls @ 45 mls/hr 01/21/17 12:50 Dextrose IV 01/22/17 12:42 ONCE ONE Lactulose 15 gm 01/22/17 09:00 Enulose PO DAILY JANNIE Morphine Sulfate 2 mg 01/15/17 20:32 01/22/17 06:08 Morphine IVP 2 mg Q4 PRN Administration Pain, severe (8-10) Multivitamins/Vitamin C 5 ml 01/16/17 11:30 01/21/17 08:46 Multi-Delyn Liquid PO 5 ml DAILY JANNIE Administration Pantoprazole Sodium 40 mg 01/15/17 21:00 01/21/17 22:00 Protonix Inj IVP 40 mg Q12 JANNIE Administration Phytonadione 5 mg 01/21/17 09:00 01/21/17 13:38 Vitamin K Tab PO 5 mg TTS JANNIE Administration Spironolactone 25 mg 01/21/17 10:45 01/21/17 13:38 Aldactone PO 25 mg DAILY JANNIE Administration Thiamine HCl 100 mg 01/16/17 11:30 01/21/17 08:45 Vitamin B1 Tab PO 100 mg DAILY JANNIE Administration Tramadol HCl 100 mg 01/21/17 11:17 01/21/17 16:01 Ultram PO 100 mg Q6 PRN Administration Pain, moderate (4-7) - Patient Studies Lab Studies: Lab Studies 01/22/17 01/22/17 01/22/17 Range/Units 04:20 04:20 04:20 WBC (4.8-10.8) K/uL RBC (4.40-5.90) Mil/uL Hgb (12.0-18.0) g/dL Hct (35.0-51.0) % MCV (80.0-94.0) fl MCH (27.0-31.0) pg MCHC (33.0-37.0) g/dL RDW (11.5-14.5) % Plt Count (130-400) K/uL PT 21.2 H (9.8-13.1) Seconds INR 2.0 H (0.9-1.2) APTT 36.8 (25.6-37.1) Seconds Fibrinogen 152 L (200-400) mg/dl Sodium 133 (132-148) mmol/l Potassium 3.7 (3.6-5.0) MMOL/L Chloride 103 (98-107) mmol/L Carbon Dioxide 22 (22-30) mmol/L Anion Gap 12 (10-20) BUN 9 (9-20) mg/dl Creatinine 0.5 L (0.8-1.5) mg/dL Est GFR ( Amer) > 60 Est GFR (Non-Af Amer) > 60 Random Glucose 89 (75-110) mg/dL Calcium 8.1 L (8.4-10.2) mg/dL Phosphorus 3.2 (2.5-4.5) mg/dl Magnesium 1.3 L (1.6-2.3) MG/DL Ferritin ng/mL Total Bilirubin 18.3 H (0.2-1.3) mg/dl Direct Bilirubin 9.1 H (0.0-0.4) mg/ml AST 89 H (17-59) U/L ALT 48 (21-72) U/L Alkaline Phosphatase 91 (38-126) U/L Ammonia 19 D (16-60) umo/L Lactate Dehydrogenase 749 H (313-618) U/L Total Protein 6.5 (6.3-8.2) G/DL Albumin 2.7 L (3.5-5.0) g/dL Globulin 3.8 (2.2-3.9) gm/dL Albumin/Globulin Ratio 0.7 L (1.0-2.1) Vitamin B12 (239-931) pg/mL Folate ng/mL Hepatitis A IgM Ab (NEGATIVE) Hep Bs Antigen (NEGATIVE) Hep B Core IgM Ab (NEGATIVE) Hepatitis C Antibody (NEGATIVE) HIV-1 Ab Rapid Screen (NON REAC) 01/22/17 01/21/17 01/21/17 Range/Units 04:20 16:09 16:09 WBC 3.4 L 3.9 L (4.8-10.8) K/uL RBC 2.27 L 2.04 L (4.40-5.90) Mil/uL Hgb 7.4 L 6.7 L (12.0-18.0) g/dL Hct 22.0 L 19.6 L (35.0-51.0) % MCV 96.9 H 96.3 H (80.0-94.0) fl MCH 32.6 H 32.7 H (27.0-31.0) pg MCHC 33.6 34.0 (33.0-37.0) g/dL RDW 20.2 H 19.4 H (11.5-14.5) % Plt Count 65 L 65 L (130-400) K/uL PT (9.8-13.1) Seconds INR (0.9-1.2) APTT (25.6-37.1) Seconds Fibrinogen (200-400) mg/dl Sodium (132-148) mmol/l Potassium (3.6-5.0) MMOL/L Chloride (98-107) mmol/L Carbon Dioxide (22-30) mmol/L Anion Gap (10-20) BUN (9-20) mg/dl Creatinine (0.8-1.5) mg/dL Est GFR ( Amer) Est GFR (Non-Af Amer) Random Glucose (75-110) mg/dL Calcium (8.4-10.2) mg/dL Phosphorus (2.5-4.5) mg/dl Magnesium (1.6-2.3) MG/DL Ferritin ng/mL Total Bilirubin (0.2-1.3) mg/dl Direct Bilirubin (0.0-0.4) mg/ml AST (17-59) U/L ALT (21-72) U/L Alkaline Phosphatase (38-126) U/L Ammonia 32 D (16-60) umo/L Lactate Dehydrogenase (313-618) U/L Total Protein (6.3-8.2) G/DL Albumin (3.5-5.0) g/dL Globulin (2.2-3.9) gm/dL Albumin/Globulin Ratio (1.0-2.1) Vitamin B12 (239-931) pg/mL Folate ng/mL Hepatitis A IgM Ab (NEGATIVE) Hep Bs Antigen (NEGATIVE) Hep B Core IgM Ab (NEGATIVE) Hepatitis C Antibody (NEGATIVE) HIV-1 Ab Rapid Screen (NON REAC) 01/21/17 01/21/17 01/21/17 Range/Units 04:30 04:30 04:30 WBC (4.8-10.8) K/uL RBC (4.40-5.90) Mil/uL Hgb (12.0-18.0) g/dL Hct (35.0-51.0) % MCV (80.0-94.0) fl MCH (27.0-31.0) pg MCHC (33.0-37.0) g/dL RDW (11.5-14.5) % Plt Count (130-400) K/uL PT (9.8-13.1) Seconds INR (0.9-1.2) APTT (25.6-37.1) Seconds Fibrinogen (200-400) mg/dl Sodium (132-148) mmol/l Potassium (3.6-5.0) MMOL/L Chloride (98-107) mmol/L Carbon Dioxide (22-30) mmol/L Anion Gap (10-20) BUN (9-20) mg/dl Creatinine (0.8-1.5) mg/dL Est GFR ( Amer) Est GFR (Non-Af Amer) Random Glucose (75-110) mg/dL Calcium (8.4-10.2) mg/dL Phosphorus (2.5-4.5) mg/dl Magnesium (1.6-2.3) MG/DL Ferritin ng/mL Total Bilirubin (0.2-1.3) mg/dl Direct Bilirubin (0.0-0.4) mg/ml AST (17-59) U/L ALT (21-72) U/L Alkaline Phosphatase (38-126) U/L Ammonia (16-60) umo/L Lactate Dehydrogenase (313-618) U/L Total Protein (6.3-8.2) G/DL Albumin (3.5-5.0) g/dL Globulin (2.2-3.9) gm/dL Albumin/Globulin Ratio (1.0-2.1) Vitamin B12 (239-931) pg/mL Folate ng/mL Hepatitis A IgM Ab Negative (NEGATIVE) Hep Bs Antigen Negative (NEGATIVE) Hep B Core IgM Ab Negative (NEGATIVE) Hepatitis C Antibody Negative Negative (NEGATIVE) HIV-1 Ab Rapid Screen Non reactive (NON REAC) 01/21/17 Range/Units 04:30 WBC (4.8-10.8) K/uL RBC (4.40-5.90) Mil/uL Hgb (12.0-18.0) g/dL Hct (35.0-51.0) % MCV (80.0-94.0) fl MCH (27.0-31.0) pg MCHC (33.0-37.0) g/dL RDW (11.5-14.5) % Plt Count (130-400) K/uL PT (9.8-13.1) Seconds INR (0.9-1.2) APTT (25.6-37.1) Seconds Fibrinogen (200-400) mg/dl Sodium (132-148) mmol/l Potassium (3.6-5.0) MMOL/L Chloride (98-107) mmol/L Carbon Dioxide (22-30) mmol/L Anion Gap (10-20) BUN (9-20) mg/dl Creatinine (0.8-1.5) mg/dL Est GFR ( Amer) Est GFR (Non-Af Amer) Random Glucose (75-110) mg/dL Calcium (8.4-10.2) mg/dL Phosphorus (2.5-4.5) mg/dl Magnesium (1.6-2.3) MG/DL Ferritin 367.0 ng/mL Total Bilirubin (0.2-1.3) mg/dl Direct Bilirubin (0.0-0.4) mg/ml AST (17-59) U/L ALT (21-72) U/L Alkaline Phosphatase (38-126) U/L Ammonia (16-60) umo/L Lactate Dehydrogenase (313-618) U/L Total Protein (6.3-8.2) G/DL Albumin (3.5-5.0) g/dL Globulin (2.2-3.9) gm/dL Albumin/Globulin Ratio (1.0-2.1) Vitamin B12 923 (239-931) pg/mL Folate 4.9 ng/mL Hepatitis A IgM Ab (NEGATIVE) Hep Bs Antigen (NEGATIVE) Hep B Core IgM Ab (NEGATIVE) Hepatitis C Antibody (NEGATIVE) HIV-1 Ab Rapid Screen (NON REAC) Laboratory Results - last 24 hr 01/21/17 01/21/17 01/21/17 04:30 04:30 04:30 WBC RBC Hgb Hct MCV MCH MCHC RDW Plt Count PT INR APTT Fibrinogen Sodium Potassium Chloride Carbon Dioxide Anion Gap BUN Creatinine Est GFR ( Amer) Est GFR (Non-Af Amer) Random Glucose Calcium Phosphorus Magnesium Ferritin 367.0 Total Bilirubin Direct Bilirubin AST ALT Alkaline Phosphatase Ammonia Lactate Dehydrogenase Total Protein Albumin Globulin Albumin/Globulin Ratio Vitamin B12 923 Folate 4.9 Hepatitis A IgM Ab Negative Hep Bs Antigen Negative Hep B Core IgM Ab Negative Hepatitis C Antibody Negative Negative HIV-1 Ab Rapid Screen 01/21/17 01/21/17 01/21/17 04:30 16:09 16:09 WBC 3.9 L RBC 2.04 L Hgb 6.7 L Hct 19.6 L MCV 96.3 H MCH 32.7 H MCHC 34.0 RDW 19.4 H Plt Count 65 L PT INR APTT Fibrinogen Sodium Potassium Chloride Carbon Dioxide Anion Gap BUN Creatinine Est GFR ( Amer) Est GFR (Non-Af Amer) Random Glucose Calcium Phosphorus Magnesium Ferritin Total Bilirubin Direct Bilirubin AST ALT Alkaline Phosphatase Ammonia 32 D Lactate Dehydrogenase Total Protein Albumin Globulin Albumin/Globulin Ratio Vitamin B12 Folate Hepatitis A IgM Ab Hep Bs Antigen Hep B Core IgM Ab Hepatitis C Antibody HIV-1 Ab Rapid Screen Non reactive 01/22/17 01/22/17 01/22/17 04:20 04:20 04:20 WBC 3.4 L RBC 2.27 L Hgb 7.4 L Hct 22.0 L MCV 96.9 H MCH 32.6 H MCHC 33.6 RDW 20.2 H Plt Count 65 L PT 21.2 H INR 2.0 H APTT 36.8 Fibrinogen 152 L Sodium 133 Potassium 3.7 Chloride 103 Carbon Dioxide 22 Anion Gap 12 BUN 9 Creatinine 0.5 L Est GFR ( Amer) > 60 Est GFR (Non-Af Amer) > 60 Random Glucose 89 Calcium 8.1 L Phosphorus 3.2 Magnesium 1.3 L Ferritin Total Bilirubin 18.3 H Direct Bilirubin 9.1 H AST 89 H ALT 48 Alkaline Phosphatase 91 Ammonia Lactate Dehydrogenase 749 H Total Protein 6.5 Albumin 2.7 L Globulin 3.8 Albumin/Globulin Ratio 0.7 L Vitamin B12 Folate Hepatitis A IgM Ab Hep Bs Antigen Hep B Core IgM Ab Hepatitis C Antibody HIV-1 Ab Rapid Screen 01/22/17 04:20 WBC RBC Hgb Hct MCV MCH MCHC RDW Plt Count PT INR APTT Fibrinogen Sodium Potassium Chloride Carbon Dioxide Anion Gap BUN Creatinine Est GFR ( Amer) Est GFR (Non-Af Amer) Random Glucose Calcium Phosphorus Magnesium Ferritin Total Bilirubin Direct Bilirubin AST ALT Alkaline Phosphatase Ammonia 19 D Lactate Dehydrogenase Total Protein Albumin Globulin Albumin/Globulin Ratio Vitamin B12 Folate Hepatitis A IgM Ab Hep Bs Antigen Hep B Core IgM Ab Hepatitis C Antibody HIV-1 Ab Rapid Screen Review of Systems - Constitutional Constitutional: absent: Fever - Cardiovascular Cardiovascular: absent: Chest Pain - Respiratory Respiratory: absent: Cough, Dyspnea - Gastrointestinal Gastrointestinal: absent: Abdominal Pain - Musculoskeletal Musculoskeletal: Myalgias Critical Care Progress Note - Nutrition Nutrition: Nutrition Category Date Time Status Regular Diet [DIET] Diets 01/16/17 Lunch Active Assessment/Plan - Assessment and Plan (Free Text) Plan: 51 yo M with PMH liver cirrhosis secondary to alcohol abuse, seizures admitted for right thigh hematoma. Patient in ICU under management for coagulopathy. will be transfered today to floor Assessment/Plan: 1)Right Thigh Hematoma -stable,ecchymosis right abdomen/flank/groin and genitalia. -CT abd: Intramuscular hemorrhage into right iliopsoas.extensive subcutaneous edema over R lat abd wall and lat thigh -Surgery consult appreciated, no surgery intervention at this time 2)Liver Cirrhosis -likely secondary to alcohol abuse, likely cause of coagulopathic process and splenic sequestration -Meld-Na+ score: 25 - Ammonia 19 -Total ismael trending up 18.3 Bd:9.1 -PT/PTT 21.2/36.9 INR 2 -Lactulose 15 gm PO daily -Aldactone 25 mg PO daily -f/u pt/inr, ptt, fibrinogen daily 3)Pancytopenia -labs reviewed WBC 3.4 Hgb 7.4 Platelets 65 -possible hemolytic process given patients reticulocyte count and jaundice. -INR 2.0 -fibrinogen 152 -Reticulocyte count 7.6%, haptoglobin <15 (low) -Hem-Onc consult appreciated: s/p Procript (epoetin) 20 000 U sc. -Aminocaproic acid infusin on. s/P aminocaproic acid PO 3 dosis yesterdy -HIV neg -Stop Keppra -Vit K 5 mg PO TU,ERIN,Sat -F/u CBC,CMP 4) Acute anemia -secondary to hemolytic process and splenic sequestration -S/P 2U RBC transfusion, vitK, cryop, PCC(Kcentra) -Hgb 7.4 -Hem-Onc appreciated -[place] direct neg. no autoimmune hemolytic anemia -ferritin high.(possible secondary to acute reactant face inflammation process) -Vit B12 normal, folic acid normal 4.9 -f/U CBC, CMP, 5) Hypomagnesemia secondary to liver cirrhosis -Mg1.3 -Mg sulf 2gm IV -f/u Mg 6)Alcohol Abuse -CIWA score 0 -Alcohol level was 11 at admission -Monitor for withdrawal 7)History of seizures -last episode 2 days prior to admission.ETOH related? -STOP Keppra.may cause pancytopenia -Keppra level 8.8 normal -Monitor for seizures 8)DVT prophylaxis -SCD <MasoodAnders Sunita - Last Filed: 01/23/17 07:47> Assessment/Plan - Assessment and Plan (Free Text) Assessment: Attestation: Patient seen and examined at the bedside with Resident Dr. James Moreno, and I agree with his outline of plans and management as documented and discussed on AM rounds reflecting my review of all applicable clinical data, and participation in the care of the patient throughout the day in ICU; today, January 22, 2017.
[2017-01-22] MEDS: Multiple Vitamins Oral Solution PO SCH (08:26)
[2017-01-22] MEDS ORDERED: Aminocaproic Acid 5,000 MG in Dextrose 5% In Water 250 ML IV ONE (09:45)
[2017-01-22] MEDS ORDERED: AMINOCAPROIC ACID IV ONE ×2 (10:30→12:50)
[2017-01-22] MEDS ORDERED: WATER IV ONE ×2 (10:30→12:50)
[2017-01-22] MEDS ORDERED: DEXTROSE 5% IV ONE ×2 (10:30→12:50)
[2017-01-22] MEDS ORDERED: Magnesium Sulfate 2 gm/50 ml 2 GM/50 ML BAG IVPB ONE (12:20)
[2017-01-22] MEDS: Morphine 4 MG/ML VIAL IVP PRN ×2 (17:11→21:54)
[2017-01-23] MEDS: Morphine 4 MG/ML VIAL IVP PRN ×4 (06:39→18:48)
[2017-01-23 07:36] LABS: HEMOGLOBIN 6.6 g/dL (12.0-18.0); MEAN CELL VOLUME 98.3 fl (80.0-94.0); MEAN CORPUSCULAR HEMOGLOBIN 33.3 pg (27.0-31.0); MEAN CORPUSCULAR HGB CONC 33.9 g/dL (33.0-37.0); RBC 1.98 Mil/uL (4.40-5.90); RED CELL DISTRIBUTION WIDTH 21.3 % (11.5-14.5)
[2017-01-23 07:52] LABS: ALB/GLOB RATIO 0.7 (1.0-2.1); ALBUMIN 2.7 g/dL (3.5-5.0); ALT/SGPT 53 U/L (21-72); AST/SGOT 111 U/L (17-59); BILIRUBIN,DIRECT 8.9 mg/ml (0.0-0.4); BLOOD UREA NITROGEN 9 mg/dl (9-20); CALCIUM 7.9 mg/dL (8.4-10.2); GFR AFRICAN-AMERICAN > 60; GFR NON-AFRICAN AMERICAN > 60; MAGNESIUM 1.3 MG/DL (1.6-2.3)
[2017-01-23 08:08] LABS: PARTIAL THROMBOPLASTIN TIME 38.8 Seconds (25.6-37.1)
[2017-01-23 08:10] LABS: INR 2.4 (0.9-1.2); PROTHROMBIN TIME 25.1 Seconds (9.8-13.1)
[2017-01-23] MEDS: Multiple Vitamins Oral Solution PO SCH (09:19)
--- NOTE | 2017-01-23 09:26 | CP.PCM.PN ---
Subjective - Date & Time of Evaluation Date of Evaluation: 01/23/17 Time of Evaluation: 08:30 - Subjective Subjective: No acute events overnight. on 1:1 observation. Patient appears improved today. More alert. Leg edema improved. He is still jaundiced. Hg 6.6, will give 2 units of FFP and Procrit 20,000 x 1. Aminocaproic acid drip x 1. Case was d/w Dr. Mack. Objective - Vital Signs/Intake and Output Vital Signs (last 24 hours): Temp Pulse Resp BP Pulse Ox 98.0 F 93 H 18 121/61 96 01/23/17 08:39 01/23/17 08:39 01/23/17 08:39 01/23/17 08:39 01/23/17 08:39 - Medications Medications: Current Medications Folic Acid (Folic Acid) 1 mg PO DAILY [facility] Last Admin: 01/23/17 09:19 Dose: 1 mg Lactulose (Enulose) 15 gm PO DAILY [facility] Last Admin: 01/23/17 09:19 Dose: 15 gm Morphine Sulfate (Morphine) 2 mg IVP Q4 PRN PRN Reason: Pain, severe (8-10) Last Admin: 01/23/17 06:46 Dose: 2 mg Multivitamins/Vitamin C (Multi-Delyn Liquid) 5 ml PO DAILY [facility] Last Admin: 01/23/17 09:19 Dose: 5 ml Pantoprazole Sodium (Protonix Inj) 40 mg IVP Q12 [facility] Last Admin: 01/23/17 09:20 Dose: 40 mg Phytonadione (Vitamin K Tab) 5 mg PO TTS [facility] Last Admin: 01/23/17 09:19 Dose: 5 mg Spironolactone (Aldactone) 25 mg PO DAILY [facility] Last Admin: 01/23/17 09:19 Dose: 25 mg Thiamine HCl (Vitamin B1 Tab) 100 mg PO DAILY [facility] Last Admin: 01/23/17 09:19 Dose: 100 mg Tramadol HCl (Ultram) 100 mg PO Q6 PRN PRN Reason: Pain, moderate (4-7) Last Admin: 01/22/17 08:28 Dose: 100 mg - Labs Labs: 01/23/17 05:30 01/23/17 05:30 PT 25.1 Seconds (9.8-13.1) H 01/23/17 05:30 INR 2.4 (0.9-1.2) H 01/23/17 05:30 APTT 38.8 Seconds (25.6-37.1) H 01/23/17 05:30 - Constitutional Appears: No Acute Distress (jaundiced) - Eye Exam Eye Exam: Scleral icterus - ENT Exam ENT Exam: Mucous Membranes Moist - Cardiovascular Exam Cardiovascular Exam: REGULAR RHYTHM, +S1, +S2, Murmur - GI/Abdominal Exam GI & Abdominal Exam: Soft, Normal Bowel Sounds. absent: Tenderness - Extremities Exam Additional comments: right lower extremity edema, improving - Neurological Exam Neurological Exam: Alert, Awake, CN II-XII Intact - Skin Additional comments: jaundiced, ecchymosis of RLE and flank is improving. Assessment and Plan (1) Thigh hematoma Status: Acute (2) Coagulopathy Status: Acute (3) Pancytopenia Status: Acute (4) Jaundice Status: Acute (5) Liver cirrhosis, alcoholic Status: Chronic (6) History of seizure Status: Chronic - Assessment and Plan (Free Text) Assessment: 51 yo M with PMH liver cirrhosis secondary to alcohol abuse, seizures admitted for right thigh hematoma, currently in the ICU for coagulopathy. Coagulopathy likely secondary to liver cirrhosis. Patient is more alert this AM. His ecchymosis and edema slowly improving. Good response to low dose aldactone. He has has +pedal pulses, however will continue to monitor for compartment syndrome. Unclear why bilirubin continues to rise, possible that resorption of hematoma is causing increase in bilirubin. Labs reviewed. Case was d/w Dr. Mack. Right Thigh Hematoma Liver Cirrhosis Pancytopenia History of seizures DVT prophylaxis Plan: -Aldactone 25 mg daily -Lactulose daily -aminocaproic acid x 1 -2 units of FFP -Procrit 43713 units x 1 -replace magnesium -Pain control, morphine/tramadol PRN -Monitor H/H and coags -Diana poe -SCDs for DVT prophylaxis
[2017-01-23] MEDS ORDERED: Magnesium Sulfate 2 gm/50 ml 2 GM/50 ML BAG IVPB ONE (09:57)
[2017-01-23] MEDS ORDERED: Epoetin Alfa 20000 UNIT/ML (RENAL DOSE) SC ONE (13:33)
[2017-01-24] MEDS: Morphine 4 MG/ML VIAL IVP PRN ×3 (03:43→18:01)
[2017-01-24 07:29] LABS: HEMOGLOBIN 7.7 g/dL (12.0-18.0); MEAN CELL VOLUME 100.5 fl (80.0-94.0); MEAN CORPUSCULAR HGB CONC 33.9 g/dL (33.0-37.0); RBC 2.27 Mil/uL (4.40-5.90); RED CELL DISTRIBUTION WIDTH 23.4 % (11.5-14.5); WHITE BLOOD COUNT 3.4 K/uL (4.8-10.8)
[2017-01-24 07:32] LABS: ALB/GLOB RATIO 0.7 (1.0-2.1); ALT/SGPT 68 U/L (21-72); AST/SGOT 126 U/L (17-59); BILIRUBIN,DIRECT 10.5 mg/ml (0.0-0.4); BLOOD UREA NITROGEN 8 mg/dl (9-20); CALCIUM 8.4 mg/dL (8.4-10.2); GFR AFRICAN-AMERICAN > 60; GFR NON-AFRICAN AMERICAN > 60
[2017-01-24 08:21] LABS: INR 2.4 (0.9-1.2); PARTIAL THROMBOPLASTIN TIME 37.7 Seconds (25.6-37.1); PROTHROMBIN TIME 25.1 Seconds (9.8-13.1)
[2017-01-24] MEDS: Lactulose 10 gm/15 ml Syrup PO SCH (08:47)
[2017-01-24] MEDS: Multiple Vitamins Oral Solution PO SCH (08:47)
[2017-01-24] MEDS ORDERED: Aminocaproic Acid 5,000 MG in Dextrose 5% In Water 250 ML IV ONE (14:23)
--- NOTE | 2017-01-24 15:37 | CP.PCM.PN ---
Subjective - Date & Time of Evaluation Date of Evaluation: 01/24/17 Time of Evaluation: 09:40 - Subjective Subjective: Pt. seen at bedside this morning lying awake watching tv. Pt. with no complaints at this time. No overnight events reprorted. Pt. states pain is well controlled with medications. On ROS, pt. denies any headache, chest pain, difficulty breathing, abdominal pain, fever, or chills. Objective - Vital Signs/Intake and Output Vital Signs (last 24 hours): Temp Pulse Resp BP Pulse Ox 98.5 F 83 18 120/70 98 01/24/17 08:35 01/24/17 08:35 01/24/17 08:35 01/24/17 08:35 01/24/17 08:35 - Medications Medications: Current Medications Folic Acid (Folic Acid) 1 mg PO DAILY [facility] Last Admin: 01/24/17 08:47 Dose: 1 mg Lactulose (Enulose) 10 gm PO DAILY [facility] Last Admin: 01/24/17 08:47 Dose: 10 gm Morphine Sulfate (Morphine) 2 mg IVP Q4 PRN PRN Reason: Pain, severe (8-10) Last Admin: 01/24/17 13:00 Dose: 2 mg Multivitamins/Vitamin C (Multi-Delyn Liquid) 5 ml PO DAILY [facility] Last Admin: 01/24/17 08:47 Dose: 5 ml Nicotine (Nicoderm Cq) 1 patch TD DAILY [facility] Last Admin: 01/24/17 08:59 Dose: 1 patch Pantoprazole Sodium (Protonix Inj) 40 mg IVP Q12 [facility] Last Admin: 01/24/17 08:51 Dose: Not Given Spironolactone (Aldactone) 25 mg PO DAILY [facility] Last Admin: 01/24/17 08:47 Dose: 25 mg Thiamine HCl (Vitamin B1 Tab) 100 mg PO DAILY [facility] Last Admin: 01/24/17 08:47 Dose: 100 mg Tramadol HCl (Ultram) 100 mg PO Q6 PRN PRN Reason: Pain, moderate (4-7) Last Admin: 01/24/17 06:54 Dose: 100 mg - Labs Labs: 01/24/17 05:30 01/24/17 05:30 PT 25.1 Seconds (9.8-13.1) H 01/24/17 05:30 INR 2.4 (0.9-1.2) H 01/24/17 05:30 APTT 37.7 Seconds (25.6-37.1) H 01/24/17 05:30 - Constitutional Appears: No Acute Distress, Other (Jaundice ) - Eye Exam Eye Exam: PERRL, Scleral icterus - Respiratory Exam Respiratory Exam: Clear to Ausculation Bilateral, NORMAL BREATHING PATTERN - Cardiovascular Exam Cardiovascular Exam: REGULAR RHYTHM, +S1, +S2 - GI/Abdominal Exam GI & Abdominal Exam: Soft. absent: Tenderness - Extremities Exam Additional comments: RT. Thigh Hematoma Improving Pedal Pulses +2 Bilaterally No calf Tenderness - Neurological Exam Neurological Exam: Alert, Awake, Oriented x3 Assessment and Plan - Assessment and Plan (Free Text) Assessment: Assessment: 51 yo M with PMH liver cirrhosis secondary to alcohol abuse admitted for Rt. Thigh Hematoma and Coagulopathy. Hematoma- Resolving 1- Monithor H/H currently stable 2- Pain Well controlled 3- CBC in the a.m. 4- I.V. fluids 5- Fall precautions in place 6- 1:1 observation Coagulopathy- Resolving 1- Hematology Dr. Mack on board 2- Aminocaproic acid [id number] over [address] Mack s/p 2 units FFP and Procrit 53987 units sc on 01/23/17 3- CBC - INR in the a.m. Liver Cirrhosis- Chronic 1- T-Angel elevated, will repeat in the a.m. 2- GI. Dr. Sanchez on board input appreciated 3- Lactulose daily DVT prophylaxis 1- SCD Diet 1- GI low fat diet
[2017-01-24] MEDS ORDERED: Promethazine 6.25 MG/5 ML CUP PO PRN (16:12)
[2017-01-24] MEDS: AMINOCAPROIC ACID IV SCH (18:04)
[2017-01-24] MEDS: WATER IV SCH (18:04)
[2017-01-24] MEDS: DEXTROSE 5% IV SCH (18:04)
--- NOTE | 2017-01-24 20:45 | CP.PCM.PN ---
Subjective - Date & Time of Evaluation Date of Evaluation: 01/22/17 Time of Evaluation: 19:00 - Subjective Subjective: Has leg pain. Objective - Vital Signs/Intake and Output Vital Signs (last 24 hours): Temp Pulse Resp BP Pulse Ox 97.8 F 82 18 115/65 97 01/24/17 16:00 01/24/17 16:00 01/24/17 16:00 01/24/17 16:00 01/24/17 16:00 - Medications Medications: Current Medications Folic Acid (Folic Acid) 1 mg PO DAILY [facility] Last Admin: 01/24/17 08:47 Dose: 1 mg Aminocaproic Acid 19,000 mg/ (Dextrose) 1,076 mls @ 52.6 mls/hr IV .[id number] [facility] Stop: 01/25/17 16:07 Last Admin: 01/24/17 18:04 Dose: 52.6 mls/hr Lactulose (Enulose) 10 gm PO DAILY [facility] Last Admin: 01/24/17 08:47 Dose: 10 gm Morphine Sulfate (Morphine) 2 mg IVP Q4 PRN PRN Reason: Pain, severe (8-10) Last Admin: 01/24/17 18:01 Dose: 2 mg Multivitamins/Vitamin C (Multi-Delyn Liquid) 5 ml PO DAILY [facility] Last Admin: 01/24/17 08:47 Dose: 5 ml Nicotine (Nicoderm Cq) 1 patch TD DAILY [facility] Last Admin: 01/24/17 08:59 Dose: 1 patch Pantoprazole Sodium (Protonix Inj) 40 mg IVP Q12 [facility] Last Admin: 01/24/17 08:51 Dose: Not Given Spironolactone (Aldactone) 25 mg PO DAILY [facility] Last Admin: 01/24/17 08:47 Dose: 25 mg Thiamine HCl (Vitamin B1 Tab) 100 mg PO DAILY [facility] Last Admin: 01/24/17 08:47 Dose: 100 mg Tramadol HCl (Ultram) 100 mg PO Q6 PRN PRN Reason: Pain, moderate (4-7) Last Admin: 01/24/17 15:35 Dose: 100 mg - Labs Labs: 01/24/17 05:30 01/24/17 05:30 PT 25.1 Seconds (9.8-13.1) H 01/24/17 05:30 INR 2.4 (0.9-1.2) H 01/24/17 05:30 APTT 37.7 Seconds (25.6-37.1) H 01/24/17 05:30 - Head Exam Head Exam: ATRAUMATIC - Eye Exam Eye Exam: Normal appearance - ENT Exam ENT Exam: Mucous Membranes Dry - Respiratory Exam Respiratory Exam: NORMAL BREATHING PATTERN - Cardiovascular Exam Cardiovascular Exam: +S1, +S2 - GI/Abdominal Exam GI & Abdominal Exam: Normal Bowel Sounds - Extremities Exam Additional comments: RLE swelling Assessment and Plan (1) Thigh hematoma Assessment & Plan: s/p PRBC, plt, ffp, desmopressin, vit k, kcentra will start aminocaproic acid drip Status: Acute (2) Anemia Assessment & Plan: blood loss, chronic disease, sequestration Procrit Status: Acute (3) Coagulopathy Assessment & Plan: liver disease Status: Acute (4) Thrombocytopenia Assessment & Plan: liver disease, sequestration Status: Acute
--- NOTE | 2017-01-24 20:48 | CP.PCM.PN ---
Subjective - Date & Time of Evaluation Date of Evaluation: 01/23/17 Time of Evaluation: 15:00 - Subjective Subjective: less thigh pain and swelling Objective - Vital Signs/Intake and Output Vital Signs (last 24 hours): Temp Pulse Resp BP Pulse Ox 97.8 F 82 18 115/65 97 01/24/17 16:00 01/24/17 16:00 01/24/17 16:00 01/24/17 16:00 01/24/17 16:00 - Medications Medications: Current Medications Folic Acid (Folic Acid) 1 mg PO DAILY [facility] Last Admin: 01/24/17 08:47 Dose: 1 mg Aminocaproic Acid 19,000 mg/ (Dextrose) 1,076 mls @ 52.6 mls/hr IV .[id number] [facility] Stop: 01/25/17 16:07 Last Admin: 01/24/17 18:04 Dose: 52.6 mls/hr Lactulose (Enulose) 10 gm PO DAILY [facility] Last Admin: 01/24/17 08:47 Dose: 10 gm Morphine Sulfate (Morphine) 2 mg IVP Q4 PRN PRN Reason: Pain, severe (8-10) Last Admin: 01/24/17 18:01 Dose: 2 mg Multivitamins/Vitamin C (Multi-Delyn Liquid) 5 ml PO DAILY [facility] Last Admin: 01/24/17 08:47 Dose: 5 ml Nicotine (Nicoderm Cq) 1 patch TD DAILY [facility] Last Admin: 01/24/17 08:59 Dose: 1 patch Pantoprazole Sodium (Protonix Inj) 40 mg IVP Q12 [facility] Last Admin: 01/24/17 08:51 Dose: Not Given Spironolactone (Aldactone) 25 mg PO DAILY [facility] Last Admin: 01/24/17 08:47 Dose: 25 mg Thiamine HCl (Vitamin B1 Tab) 100 mg PO DAILY [facility] Last Admin: 01/24/17 08:47 Dose: 100 mg Tramadol HCl (Ultram) 100 mg PO Q6 PRN PRN Reason: Pain, moderate (4-7) Last Admin: 01/24/17 15:35 Dose: 100 mg - Labs Labs: 01/24/17 05:30 01/24/17 05:30 PT 25.1 Seconds (9.8-13.1) H 01/24/17 05:30 INR 2.4 (0.9-1.2) H 01/24/17 05:30 APTT 37.7 Seconds (25.6-37.1) H 01/24/17 05:30 - Head Exam Head Exam: ATRAUMATIC - Eye Exam Eye Exam: Normal appearance - ENT Exam ENT Exam: Mucous Membranes Dry - Respiratory Exam Respiratory Exam: NORMAL BREATHING PATTERN - Cardiovascular Exam Cardiovascular Exam: +S1, +S2 - GI/Abdominal Exam GI & Abdominal Exam: Normal Bowel Sounds - Extremities Exam Extremities Exam: Pedal Edema Assessment and Plan (1) Thigh hematoma Assessment & Plan: swelling improved 2U FFP today on aminocaproic acid drip Status: Acute (2) Anemia Assessment & Plan: chronic disease, bleeding, sequestration Status: Acute (3) Coagulopathy Assessment & Plan: liver disease FFP Status: Acute (4) Thrombocytopenia Assessment & Plan: sequestration, liver disease Status: Acute
[2017-01-25 05:51] LABS: HEMOGLOBIN 8.1 g/dL (12.0-18.0); MEAN CELL VOLUME 100.7 fl (80.0-94.0); MEAN CORPUSCULAR HEMOGLOBIN 33.7 pg (27.0-31.0); MEAN CORPUSCULAR HGB CONC 33.5 g/dL (33.0-37.0); RBC 2.39 Mil/uL (4.40-5.90); RED CELL DISTRIBUTION WIDTH 24.6 % (11.5-14.5); WHITE BLOOD COUNT 4.5 K/uL (4.8-10.8)
[2017-01-25 05:59] LABS: ALB/GLOB RATIO 0.7 (1.0-2.1); ALBUMIN 3.1 g/dL (3.5-5.0); ALT/SGPT 64 U/L (21-72); AST/SGOT 114 U/L (17-59); BLOOD UREA NITROGEN 10 mg/dl (9-20); CALCIUM 8.5 mg/dL (8.4-10.2); GFR AFRICAN-AMERICAN > 60; GFR NON-AFRICAN AMERICAN > 60
[2017-01-25 06:12] LABS: INR 2.5 (0.9-1.2); PROTHROMBIN TIME 26.5 Seconds (9.8-13.1)
[2017-01-25] MEDS: Lactulose 10 gm/15 ml Syrup PO SCH (08:31)
[2017-01-25] MEDS: Multiple Vitamins Oral Solution PO SCH (08:31)
--- NOTE | 2017-01-25 10:26 | CP.PCM.PN ---
Subjective - Date & Time of Evaluation Date of Evaluation: 01/25/17 Time of Evaluation: 10:26 - Subjective Subjective: No acute events overnight. Patient seen and examined bedside. Still jaundiced, edema of leg improved. Ecchymosis persists. Alert and Oriented. Will hold off on PT/OT due to high bleeding risk if pt falls. Continue 1:1. Continue with present management. Objective - Vital Signs/Intake and Output Vital Signs (last 24 hours): Temp Pulse Resp BP Pulse Ox 98.1 F 96 H 18 139/75 97 01/25/17 08:07 01/25/17 08:07 01/25/17 08:07 01/25/17 08:07 01/25/17 08:07 - Medications Medications: Current Medications Folic Acid (Folic Acid) 1 mg PO DAILY [facility] Last Admin: 01/25/17 08:31 Dose: 1 mg Aminocaproic Acid 19,000 mg/ (Dextrose) 1,076 mls @ 52.6 mls/hr IV .[id number] [facility] Stop: 01/25/17 16:07 Last Admin: 01/24/17 18:04 Dose: 52.6 mls/hr Lactulose (Enulose) 10 gm PO DAILY [facility] Last Admin: 01/25/17 08:31 Dose: 10 gm Morphine Sulfate (Morphine) 2 mg IVP Q4 PRN PRN Reason: Pain, severe (8-10) Last Admin: 01/24/17 18:01 Dose: 2 mg Multivitamins/Vitamin C (Multi-Delyn Liquid) 5 ml PO DAILY [facility] Last Admin: 01/25/17 08:31 Dose: 5 ml Nicotine (Nicoderm Cq) 1 patch TD DAILY [facility] Last Admin: 01/25/17 08:32 Dose: 1 patch Pantoprazole Sodium (Protonix Inj) 40 mg IVP Q12 [facility] Last Admin: 01/25/17 08:32 Dose: 40 mg Spironolactone (Aldactone) 25 mg PO DAILY [facility] Last Admin: 01/25/17 08:31 Dose: 25 mg Thiamine HCl (Vitamin B1 Tab) 100 mg PO DAILY [facility] Last Admin: 01/25/17 08:32 Dose: 100 mg Tramadol HCl (Ultram) 100 mg PO Q6 PRN PRN Reason: Pain, moderate (4-7) Last Admin: 01/25/17 04:05 Dose: 100 mg - Labs Labs: 01/25/17 05:00 01/25/17 05:00 PT 26.5 Seconds (9.8-13.1) H 01/25/17 05:00 INR 2.5 (0.9-1.2) H 01/25/17 05:00 APTT 37.7 Seconds (25.6-37.1) H 01/24/17 05:30 - Constitutional Appears: No Acute Distress - Head Exam Head Exam: NORMAL INSPECTION - Eye Exam Eye Exam: Scleral icterus - ENT Exam ENT Exam: Mucous Membranes Moist - Respiratory Exam Respiratory Exam: Clear to Ausculation Bilateral, NORMAL BREATHING PATTERN - Cardiovascular Exam Cardiovascular Exam: REGULAR RHYTHM, +S1, +S2, Murmur - GI/Abdominal Exam GI & Abdominal Exam: Soft, Normal Bowel Sounds. absent: Tenderness - Rectal Exam Rectal Exam: Deferred - Extremities Exam Extremities Exam: absent: Tenderness Additional comments: tenderness and edema of right lower extremity - Neurological Exam Neurological Exam: Alert, Awake, CN II-XII Intact, Oriented x3 - Psychiatric Exam Psychiatric exam: Normal Affect, Normal Mood - Skin Skin Exam: Dry, Intact Additional comments: jaundiced Assessment and Plan (1) Thigh hematoma Status: Acute (2) Coagulopathy Status: Acute (3) Pancytopenia Status: Acute (4) Jaundice Status: Acute (5) Liver cirrhosis, alcoholic Status: Chronic (6) History of seizure Status: Chronic - Assessment and Plan (Free Text) Assessment: 51 yo M with PMH liver cirrhosis secondary to alcohol abuse, seizures admitted for hematoma in right thigh and coagulopathy. Hematoma and coagulopathy seem to be resolving. Continue to monitor cbc, coags and bili, magnesium Pancytopenia improving. Dr. Mack is following. Right Thigh Hematoma Liver Cirrhosis Pancytopenia History of seizures DVT prophylaxis Plan: -Aldactone 25 mg daily -Lactulose daily -Pain control, morphine/tramadol PRN -Monitor H/H and coags, mag, bili -Keppra held -SCDs for DVT prophylaxis
[2017-01-25] MEDS: Morphine 4 MG/ML VIAL IVP PRN (11:03)
[2017-01-25] MEDS: WATER IV SCH (12:39)
[2017-01-25] MEDS: DEXTROSE 5% IV SCH (12:39)
[2017-01-25] MEDS: AMINOCAPROIC ACID IV SCH (12:39)
[2017-01-25 13:48] LABS: MAGNESIUM 1.5 MG/DL (1.6-2.3)
[2017-01-25] MEDS ORDERED: Magnesium Sulfate 2 gm/50 ml 2 GM/50 ML BAG IVPB ONE (15:53)
[2017-01-26] MEDS: Morphine 4 MG/ML VIAL IVP PRN (04:31)
[2017-01-26 06:27] LABS: MEAN CELL VOLUME 101.3 fl (80.0-94.0); MEAN CORPUSCULAR HEMOGLOBIN 33.8 pg (27.0-31.0); MEAN CORPUSCULAR HGB CONC 33.3 g/dL (33.0-37.0); RBC 2.66 Mil/uL (4.40-5.90); RED CELL DISTRIBUTION WIDTH 24.6 % (11.5-14.5); WHITE BLOOD COUNT 6.5 K/uL (4.8-10.8)
--- NOTE | 2017-01-26 07:37 | CP.PCM.PN ---
Subjective - Date & Time of Evaluation Date of Evaluation: 01/26/17 Time of Evaluation: 07:37 - Subjective Subjective: No acute events overnight. 07:35 Patient sleeping. Will return to evaluate. 08:30 patient seen and examined bedside. Eating breakfast. Awake and alert. Complaining of leg pain. Edema improved, almost resolved. Ecchymosis of leg is improving. Ecchymosis of abdomen/flank/ groin resolving. Last BM was 2 days ago. Continues to be jaundiced. PM&R consult for PT/OT recommendations. Continue with 1:1 observation. Objective - Vital Signs/Intake and Output Vital Signs (last 24 hours): Temp Pulse Resp BP Pulse Ox 98.7 F 90 18 117/73 97 01/26/17 00:10 01/26/17 00:10 01/26/17 00:10 01/26/17 00:10 01/26/17 00:10 - Medications Medications: Current Medications Folic Acid (Folic Acid) 1 mg PO DAILY [facility] Last Admin: 01/25/17 08:31 Dose: 1 mg Lactulose (Enulose) 10 gm PO DAILY [facility] Last Admin: 01/25/17 08:31 Dose: 10 gm Morphine Sulfate (Morphine) 2 mg IVP Q4 PRN PRN Reason: Pain, severe (8-10) Last Admin: 01/26/17 04:31 Dose: 2 mg Multivitamins/Vitamin C (Multi-Delyn Liquid) 5 ml PO DAILY [facility] Last Admin: 01/25/17 08:31 Dose: 5 ml Nicotine (Nicoderm Cq) 1 patch TD DAILY [facility] Last Admin: 01/25/17 08:32 Dose: 1 patch Pantoprazole Sodium (Protonix Inj) 40 mg IVP Q12 [facility] Last Admin: 01/25/17 20:34 Dose: 40 mg Spironolactone (Aldactone) 25 mg PO DAILY [facility] Last Admin: 01/25/17 08:31 Dose: 25 mg Thiamine HCl (Vitamin B1 Tab) 100 mg PO DAILY [facility] Last Admin: 01/25/17 08:32 Dose: 100 mg Tramadol HCl (Ultram) 100 mg PO Q6 PRN PRN Reason: Pain, moderate (4-7) Last Admin: 01/26/17 00:14 Dose: 100 mg - Labs Labs: 01/26/17 06:10 01/25/17 05:00 PT 26.5 Seconds (9.8-13.1) H 01/25/17 05:00 INR 2.5 (0.9-1.2) H 01/25/17 05:00 APTT 37.7 Seconds (25.6-37.1) H 01/24/17 05:30 - Constitutional Appears: No Acute Distress - ENT Exam ENT Exam: Mucous Membranes Moist - Respiratory Exam Respiratory Exam: NORMAL BREATHING PATTERN - Cardiovascular Exam Cardiovascular Exam: REGULAR RHYTHM, +S1, +S2 - GI/Abdominal Exam GI & Abdominal Exam: absent: Distended Additional comments: ecchymotic area right abdomen resolving, groin less ecchymotic, flank not visualized. - Exam External exam: Ecchymosis - Extremities Exam Additional comments: RLE tenderness, mildy edematous, ecchymosis on right lateral leg improving. - Neurological Exam Neurological Exam: Alert, Awake, CN II-XII Intact - Skin Skin Exam: Dry, Intact Additional comments: jaundiced Assessment and Plan (1) Thigh hematoma Assessment & Plan: 51 yo M with PMH liver cirrhosis secondary to alcohol abuse, seizures admitted for hematoma in right thigh and coagulopathy. Hematoma and coagulopathy seem to be resolving. Pancytopenia improving. Case was d/w Dr. Mack Thigh hematoma: improving, continue aldactone for edema. jaundice likely from resorption of hematoma Status: Acute (2) Pancytopenia Assessment & Plan: Improving, wbc, hg, plts trending up. monitor CBC daily. Status: Acute (3) Coagulopathy Assessment & Plan: 2' to liver cirrhosis Status: Acute (4) Jaundice Status: Acute (5) Liver cirrhosis, alcoholic Assessment & Plan: MELD score: 29 Status: Chronic (6) History of seizure Assessment & Plan: matt poe. monitor Status: Chronic (7) DVT (deep venous thrombosis) Status: Acute (8) DVT prophylaxis Assessment & Plan: anticoagulation contraindicated due to bleeding (hematoma/FOBT+, UA+ blood.) Status: Acute
[2017-01-26] MEDS: Lactulose 10 gm/15 ml Syrup PO SCH (08:12)
[2017-01-26] MEDS: Multiple Vitamins Oral Solution PO SCH (08:21)
--- NOTE | 2017-01-26 18:35 | CP.PCM.PN ---
Subjective - Date & Time of Evaluation Date of Evaluation: 01/25/17 Time of Evaluation: 09:45 - Subjective Subjective: Thigh pain/swelling improved Objective - Vital Signs/Intake and Output Vital Signs (last 24 hours): Temp Pulse Resp BP Pulse Ox 97.8 F 95 H 17 127/68 96 01/26/17 16:30 01/26/17 16:30 01/26/17 16:30 01/26/17 16:30 01/26/17 16:30 - Medications Medications: Current Medications Folic Acid (Folic Acid) 1 mg PO DAILY [facility] Last Admin: 01/26/17 08:12 Dose: 1 mg Lactulose (Enulose) 10 gm PO DAILY [facility] Last Admin: 01/26/17 08:12 Dose: 10 gm Morphine Sulfate (Morphine) 2 mg IVP Q6 PRN PRN Reason: Pain, severe (8-10) Multivitamins/Vitamin C (Multi-Delyn Liquid) 5 ml PO DAILY [facility] Last Admin: 01/26/17 08:21 Dose: 5 ml Nicotine (Nicoderm Cq) 1 patch TD DAILY [facility] Last Admin: 01/26/17 08:12 Dose: 1 patch Spironolactone (Aldactone) 25 mg PO DAILY [facility] Last Admin: 01/26/17 08:12 Dose: 25 mg Thiamine HCl (Vitamin B1 Tab) 100 mg PO DAILY [facility] Last Admin: 01/26/17 08:12 Dose: 100 mg Tramadol HCl (Ultram) 50 mg PO Q6 PRN PRN Reason: Pain, moderate (4-7) - Labs Labs: 01/26/17 06:10 01/25/17 05:00 PT 26.5 Seconds (9.8-13.1) H 01/25/17 05:00 INR 2.5 (0.9-1.2) H 01/25/17 05:00 APTT 37.7 Seconds (25.6-37.1) H 01/24/17 05:30 - Head Exam Head Exam: ATRAUMATIC - Eye Exam Eye Exam: Scleral icterus - ENT Exam ENT Exam: Mucous Membranes Dry - Respiratory Exam Respiratory Exam: NORMAL BREATHING PATTERN - Cardiovascular Exam Cardiovascular Exam: +S1, +S2 - GI/Abdominal Exam GI & Abdominal Exam: Normal Bowel Sounds - Extremities Exam Extremities Exam: Pedal Edema Assessment and Plan (1) Thigh hematoma Assessment & Plan: H/H improving appears bleeding resolving Status: Acute (2) Anemia Assessment & Plan: H/H improving s/p procrit Status: Acute (3) Coagulopathy Assessment & Plan: liver disease Status: Acute (4) Thrombocytopenia Assessment & Plan: liver disease Status: Acute
--- NOTE | 2017-01-26 19:53 | CP.PCM.PN ---
Subjective - Date & Time of Evaluation Date of Evaluation: 01/26/17 Time of Evaluation: 18:00 - Subjective Subjective: Has leg pain, improving. Objective - Vital Signs/Intake and Output Vital Signs (last 24 hours): Temp Pulse Resp BP Pulse Ox 97.8 F 95 H 17 127/68 96 01/26/17 16:30 01/26/17 16:30 01/26/17 16:30 01/26/17 16:30 01/26/17 16:30 - Medications Medications: Current Medications Folic Acid (Folic Acid) 1 mg PO DAILY [facility] Last Admin: 01/26/17 08:12 Dose: 1 mg Lactulose (Enulose) 10 gm PO DAILY [facility] Last Admin: 01/26/17 08:12 Dose: 10 gm Morphine Sulfate (Morphine) 2 mg IVP Q6 PRN PRN Reason: Pain, severe (8-10) Multivitamins/Vitamin C (Multi-Delyn Liquid) 5 ml PO DAILY [facility] Last Admin: 01/26/17 08:21 Dose: 5 ml Nicotine (Nicoderm Cq) 1 patch TD DAILY [facility] Last Admin: 01/26/17 08:12 Dose: 1 patch Spironolactone (Aldactone) 25 mg PO DAILY [facility] Last Admin: 01/26/17 08:12 Dose: 25 mg Thiamine HCl (Vitamin B1 Tab) 100 mg PO DAILY [facility] Last Admin: 01/26/17 08:12 Dose: 100 mg Tramadol HCl (Ultram) 50 mg PO Q6 PRN PRN Reason: Pain, moderate (4-7) - Labs Labs: 01/26/17 06:10 01/25/17 05:00 PT 26.5 Seconds (9.8-13.1) H 01/25/17 05:00 INR 2.5 (0.9-1.2) H 01/25/17 05:00 APTT 37.7 Seconds (25.6-37.1) H 01/24/17 05:30 - Head Exam Head Exam: ATRAUMATIC - Eye Exam Eye Exam: Scleral icterus - ENT Exam ENT Exam: Mucous Membranes Dry - Respiratory Exam Respiratory Exam: NORMAL BREATHING PATTERN - Cardiovascular Exam Cardiovascular Exam: +S1, +S2 - GI/Abdominal Exam GI & Abdominal Exam: Normal Bowel Sounds - Extremities Exam Additional comments: right lower extremity swelling. Assessment and Plan (1) Thigh hematoma Assessment & Plan: improving H/H improving; resolved bleeding. Status: Acute (2) Anemia Assessment & Plan: improving s/p procrit resolved bleeding. Status: Acute (3) Coagulopathy Assessment & Plan: liver disease Status: Acute (4) Thrombocytopenia Assessment & Plan: liver disease improved Status: Acute
[2017-01-27 07:37] LABS: HEMOGLOBIN 10.2 g/dL (12.0-18.0); MEAN CELL VOLUME 100.6 fl (80.0-94.0); MEAN CORPUSCULAR HEMOGLOBIN 34.5 pg (27.0-31.0); MEAN CORPUSCULAR HGB CONC 34.3 g/dL (33.0-37.0); RBC 2.95 Mil/uL (4.40-5.90); RED CELL DISTRIBUTION WIDTH 24.4 % (11.5-14.5); WHITE BLOOD COUNT 6.2 K/uL (4.8-10.8)
--- NOTE | 2017-01-27 08:48 | CP.PCM.PN ---
Subjective - Date & Time of Evaluation Date of Evaluation: 01/27/17 Time of Evaluation: 09:05 - Subjective Subjective: No acute events overnight. Patient wants to go home. Still has right upper thigh pain, with some difficulty ambulating. Wants to get out of bed, 1:[address] Fall precautions in place. Still jaundiced. Ecchymosis improved but still present, edema is improving. Physiatry to evaluate patient for PT recommendations. Objective - Vital Signs/Intake and Output Vital Signs (last 24 hours): Temp Pulse Resp BP Pulse Ox 99.1 F 88 18 121/67 97 01/27/17 08:45 01/27/17 08:45 01/27/17 08:45 01/27/17 08:45 01/27/17 08:45 - Medications Medications: Current Medications Folic Acid (Folic Acid) 1 mg PO DAILY [facility] Last Admin: 01/26/17 08:12 Dose: 1 mg Lactulose (Enulose) 10 gm PO DAILY [facility] Last Admin: 01/26/17 08:12 Dose: 10 gm Morphine Sulfate (Morphine) 2 mg IVP Q6 PRN PRN Reason: Pain, severe (8-10) Multivitamins/Vitamin C (Multi-Delyn Liquid) 5 ml PO DAILY [facility] Last Admin: 01/26/17 08:21 Dose: 5 ml Nicotine (Nicoderm Cq) 1 patch TD DAILY [facility] Last Admin: 01/26/17 08:12 Dose: 1 patch Spironolactone (Aldactone) 25 mg PO DAILY [facility] Last Admin: 01/26/17 08:12 Dose: 25 mg Thiamine HCl (Vitamin B1 Tab) 100 mg PO DAILY [facility] Last Admin: 01/26/17 08:12 Dose: 100 mg Tramadol HCl (Ultram) 50 mg PO Q6 PRN PRN Reason: Pain, moderate (4-7) Last Admin: 01/27/17 06:51 Dose: 50 mg - Labs Labs: 01/27/17 06:05 01/25/17 05:00 PT 26.5 Seconds (9.8-13.1) H 01/25/17 05:00 INR 2.5 (0.9-1.2) H 01/25/17 05:00 APTT 37.7 Seconds (25.6-37.1) H 01/24/17 05:30 - Constitutional Appears: No Acute Distress - Eye Exam Eye Exam: Scleral icterus - ENT Exam ENT Exam: Mucous Membranes Moist - Respiratory Exam Respiratory Exam: NORMAL BREATHING PATTERN - Cardiovascular Exam Cardiovascular Exam: REGULAR RHYTHM, Murmur - GI/Abdominal Exam GI & Abdominal Exam: absent: Distended, Tenderness - Extremities Exam Additional comments: RLE edema, tenderness - Neurological Exam Neurological Exam: Awake, CN II-XII Intact, Oriented x3 - Skin Skin Exam: Dry, Intact, Warm Additional comments: jaundiced, ecchymosis of RLE improving, ecchymosis of abdomen/groin is improved Assessment and Plan (1) Thigh hematoma Assessment & Plan: 51 yo M with PMH liver cirrhosis secondary to alcohol abuse, seizures admitted for hematoma in right thigh and coagulopathy. Hematoma and coagulopathy seem to be resolving. Hg improving, now 10.2 Case was d/w Dr. Mack Thigh hematoma: resolving continue aldactone for edema. jaundice likely from resorption of hematoma Status: Acute (2) Pancytopenia Assessment & Plan: all cell lines trending up, monitor cbc and coags Status: Acute (3) Coagulopathy Assessment & Plan: stable 2' to liver cirrhosis Status: Acute (4) Jaundice Assessment & Plan: improving Status: Acute (5) Liver cirrhosis, alcoholic Assessment & Plan: meld score: 29 Status: Chronic (6) History of seizure Assessment & Plan: monitor, matt on hold Status: Chronic (7) DVT prophylaxis Assessment & Plan: scds Status: Acute
[2017-01-27 08:50] LABS: INR 2.3 (0.9-1.2); PROTHROMBIN TIME 24.3 Seconds (9.8-13.1)
[2017-01-27] MEDS: Lactulose 10 gm/15 ml Syrup PO SCH (09:28)
[2017-01-27] MEDS: Multiple Vitamins Oral Solution PO SCH (09:29)
[2017-01-27] MEDS: Morphine 4 MG/ML VIAL IVP PRN ×2 (10:34→21:10)
--- NOTE | 2017-01-27 13:37 | CP.PCM.CON ---
History of Present Illness - History of Present Illness History of Present Illness: 51 year old with cirrhosis, liver disease, with thigh swelling and bleeding Review of Systems - Musculoskeletal Musculoskeletal: Abnormal Gait, Muscle Weakness Past Patient History - Infectious Disease Hx of Infectious Diseases: None - Tetanus Immunizations Tetanus Immunization: Unknown - Past Medical History & Family History Past Medical History?: Yes - Past Social History Smoking Status: Heavy Smoker > 10 Cigarettes Daily - CARDIAC Hx Cardiac Disorders: No - PULMONARY Hx Respiratory Disorders: No - NEUROLOGICAL Hx Neurological Disorder: Yes - HEENT Hx HEENT Problems: No - RENAL Hx Chronic Kidney Disease: No - ENDOCRINE/METABOLIC Hx Endocrine Disorders: No - HEMATOLOGICAL/ONCOLOGICAL Hx Blood Disorders: Yes - INTEGUMENTARY Hx Dermatological Problems: No - MUSCULOSKELETAL/RHEUMATOLOGICAL Hx Musculoskeletal Disorders: Yes - GASTROINTESTINAL Hx Gastritis: Yes Hx Pancreatitis: Yes (patient denies) - GENITOURINARY/GYNECOLOGICAL Hx Genitourinary Disorders: No - PSYCHIATRIC Hx Psychophysiologic Disorder: No - SURGICAL HISTORY Other/Comment: "Stomach cauterized"; TIPS (Liver Stent);. Endoscopy - ANESTHESIA Hx Anesthesia: Yes Hx Anesthesia Reactions: No Meds Allergies/Adverse Reactions: Allergies Allergy/AdvReac Type Severity Reaction Status Date / Time aspirin Allergy NAUSEA Verified 11/07/16 15:22 - Medications Medications: Current Medications Folic Acid (Folic Acid) 1 mg PO DAILY [facility] Last Admin: 01/27/17 09:29 Dose: 1 mg Lactulose (Enulose) 10 gm PO DAILY [facility] Last Admin: 01/27/17 09:28 Dose: 10 gm Morphine Sulfate (Morphine) 2 mg IVP Q6 PRN PRN Reason: Pain, severe (8-10) Last Admin: 01/27/17 10:34 Dose: 2 mg Multivitamins/Vitamin C (Multi-Delyn Liquid) 5 ml PO DAILY [facility] Last Admin: 01/27/17 09:29 Dose: 5 ml Nicotine (Nicoderm Cq) 1 patch TD DAILY [facility] Last Admin: 01/27/17 13:21 Dose: 1 patch Spironolactone (Aldactone) 25 mg PO DAILY [facility] Last Admin: 01/27/17 09:28 Dose: 25 mg Thiamine HCl (Vitamin B1 Tab) 100 mg PO DAILY [facility] Last Admin: 01/27/17 09:29 Dose: 100 mg Tramadol HCl (Ultram) 50 mg PO Q6 PRN PRN Reason: Pain, moderate (4-7) Last Admin: 01/27/17 06:51 Dose: 50 mg Physical Exam - Head Exam Head Exam: ATRAUMATIC, NORMAL INSPECTION, NORMOCEPHALIC - Eye Exam Eye Exam: EOMI, Normal appearance, PERRL Pupil Exam: NORMAL ACCOMODATION - ENT Exam ENT Exam: Mucous Membranes Moist, Normal Exam - Neck Exam Neck exam: Positive for: Normal Inspection - Respiratory Exam Respiratory Exam: NORMAL BREATHING PATTERN - Cardiovascular Exam Cardiovascular Exam: REGULAR RHYTHM - GI/Abdominal Exam GI & Abdominal Exam: Normal Bowel Sounds - Rectal Exam Rectal Exam: NORMAL INSPECTION - Exam External exam: NORMAL EXTERNAL EXAM - Neurological Exam Neurological exam: Alert, CN II-XII Intact - Skin Skin Exam: Erythema Results - Vital Signs Recent Vital Signs: Last Vital Signs Temp 99.1 F 01/27/17 08:45 Pulse 88 01/27/17 08:45 Resp 18 01/27/17 08:45 BP 121/67 01/27/17 08:45 Pulse Ox 97 01/27/17 08:45 - Labs Result Diagrams: 01/27/17 06:05 01/25/17 05:00 Labs: Laboratory Results - last 24 hr 01/27/17 01/27/17 01/27/17 06:05 06:05 06:05 WBC 6.2 RBC 2.95 L Hgb 10.2 L Hct 29.6 L MCV 100.6 H MCH 34.5 H MCHC 34.3 RDW 24.4 H Plt Count 124 L PT 24.3 H INR 2.3 H Magnesium 1.6 Assessment & Plan (1) Cirrhosis Status: Acute (2) DVT (deep venous thrombosis) Status: Acute (3) DVT prophylaxis Status: Acute (4) Jaundice Status: Acute (5) Pancytopenia Status: Acute (6) Thigh abscess Status: Acute (7) Thigh hematoma Status: Acute (8) History of seizure Status: Chronic - Assessment and Plan (Free Text) Assessment: Gait difficulty, limited rehab with bedside physical therapy Discussed wit Dr Mack. advance, therapy as blood count gets improved
--- NOTE | 2017-01-27 13:44 | CP.PCM.PN ---
Subjective - Date & Time of Evaluation Date of Evaluation: 01/27/17 Time of Evaluation: 12:00 - Subjective Subjective: patinet with leg weakness Objective - Vital Signs/Intake and Output Vital Signs (last 24 hours): Temp Pulse Resp BP Pulse Ox 99.1 F 88 18 121/67 97 01/27/17 08:45 01/27/17 08:45 01/27/17 08:45 01/27/17 08:45 01/27/17 08:45 - Medications Medications: Current Medications Folic Acid (Folic Acid) 1 mg PO DAILY [facility] Last Admin: 01/27/17 09:29 Dose: 1 mg Lactulose (Enulose) 10 gm PO DAILY [facility] Last Admin: 01/27/17 09:28 Dose: 10 gm Morphine Sulfate (Morphine) 2 mg IVP Q6 PRN PRN Reason: Pain, severe (8-10) Last Admin: 01/27/17 10:34 Dose: 2 mg Multivitamins/Vitamin C (Multi-Delyn Liquid) 5 ml PO DAILY [facility] Last Admin: 01/27/17 09:29 Dose: 5 ml Nicotine (Nicoderm Cq) 1 patch TD DAILY [facility] Last Admin: 01/27/17 13:21 Dose: 1 patch Spironolactone (Aldactone) 25 mg PO DAILY [facility] Last Admin: 01/27/17 09:28 Dose: 25 mg Thiamine HCl (Vitamin B1 Tab) 100 mg PO DAILY [facility] Last Admin: 01/27/17 09:29 Dose: 100 mg Tramadol HCl (Ultram) 50 mg PO Q6 PRN PRN Reason: Pain, moderate (4-7) Last Admin: 01/27/17 06:51 Dose: 50 mg - Labs Labs: 01/27/17 06:05 01/25/17 05:00 PT 24.3 Seconds (9.8-13.1) H 01/27/17 06:05 INR 2.3 (0.9-1.2) H 01/27/17 06:05 APTT 37.7 Seconds (25.6-37.1) H 01/24/17 05:30 - Head Exam Head Exam: ATRAUMATIC, NORMAL INSPECTION, NORMOCEPHALIC - Eye Exam Eye Exam: EOMI, Normal appearance, PERRL Pupil Exam: NORMAL ACCOMODATION - ENT Exam ENT Exam: Mucous Membranes Moist, Normal Exam - Respiratory Exam Respiratory Exam: NORMAL BREATHING PATTERN - Cardiovascular Exam Cardiovascular Exam: REGULAR RHYTHM - GI/Abdominal Exam GI & Abdominal Exam: Normal Bowel Sounds - Rectal Exam Rectal Exam: NORMAL INSPECTION - Exam External exam: NORMAL EXTERNAL EXAM - Extremities Exam Extremities Exam: Normal Capillary Refill - Neurological Exam Neurological Exam: Alert, Awake Neuro motor strength exam: Left Upper Extremity: 4, Right Upper Extremity: 4, Left Lower Extremity: 3, Right Lower Extremity: 3 Assessment and Plan (1) Cirrhosis Status: Acute (2) DVT (deep venous thrombosis) Status: Acute (3) DVT prophylaxis Status: Acute (4) Jaundice Status: Acute (5) Pancytopenia Assessment & Plan: plan for limited bedside therapy to improve rom, strength and transfers Advance Pt after further improvement In blood count Status: Acute (6) Thigh abscess Status: Acute (7) Thigh hematoma Status: Acute (8) History of seizure Status: Chronic
[2017-01-27 16:16] VITALS: RESP 20
[2017-01-28] MEDS: Morphine 4 MG/ML VIAL IVP PRN ×2 (06:49→13:06)
[2017-01-28] MEDS: Lactulose 10 gm/15 ml Syrup PO SCH (08:19)
[2017-01-28] MEDS: Multiple Vitamins Oral Solution PO SCH (08:20)
[2017-01-28 08:43] LABS: MEAN CELL VOLUME 100.3 fl (80.0-94.0); MEAN CORPUSCULAR HEMOGLOBIN 34.2 pg (27.0-31.0); MEAN CORPUSCULAR HGB CONC 34.1 g/dL (33.0-37.0); RBC 2.93 Mil/uL (4.40-5.90); RED CELL DISTRIBUTION WIDTH 24.8 % (11.5-14.5); WHITE BLOOD COUNT 6.5 K/uL (4.8-10.8)
--- NOTE | 2017-01-28 09:01 | CP.PCM.PN ---
Subjective - Date & Time of Evaluation Date of Evaluation: 01/28/17 Time of Evaluation: 09:00 - Subjective Subjective: No acute events overnight. Patient has pain of leg with movement but is able to participate in physical therapy. He continues to be jaundice but is improving. RLE edema minimal. Will d/c Spironolactone and monitor. Pain controlled with current management. CBC is stable, Hg is 10. Dr. Mack is following, recommendations appreciated. Dr. Rodriguez from physiatry was consulted for PT recommendations, consult appreciated. Objective - Vital Signs/Intake and Output Vital Signs (last 24 hours): Temp Pulse Resp BP Pulse Ox 97.9 F 78 20 119/72 97 01/28/17 07:34 01/28/17 07:34 01/28/17 07:34 01/28/17 07:34 01/28/17 07:34 - Medications Medications: Current Medications Folic Acid (Folic Acid) 1 mg PO DAILY [facility] Last Admin: 01/28/17 08:20 Dose: 1 mg Lactulose (Enulose) 10 gm PO DAILY [facility] Last Admin: 01/28/17 08:19 Dose: 10 gm Morphine Sulfate (Morphine) 2 mg IVP Q6 PRN PRN Reason: Pain, severe (8-10) Last Admin: 01/28/17 06:49 Dose: 2 mg Multivitamins/Vitamin C (Multi-Delyn Liquid) 5 ml PO DAILY [facility] Last Admin: 01/28/17 08:20 Dose: 5 ml Nicotine (Nicoderm Cq) 1 patch TD DAILY [facility] Last Admin: 01/28/17 08:20 Dose: 1 patch Spironolactone (Aldactone) 25 mg PO DAILY [facility] Last Admin: 01/28/17 08:19 Dose: 25 mg Thiamine HCl (Vitamin B1 Tab) 100 mg PO DAILY [facility] Last Admin: 01/28/17 08:21 Dose: 100 mg Tramadol HCl (Ultram) 50 mg PO Q6 PRN PRN Reason: Pain, moderate (4-7) Last Admin: 01/27/17 15:35 Dose: 50 mg - Labs Labs: 01/28/17 08:20 01/25/17 05:00 PT 24.3 Seconds (9.8-13.1) H 01/27/17 06:05 INR 2.3 (0.9-1.2) H 01/27/17 06:05 APTT 37.7 Seconds (25.6-37.1) H 01/24/17 05:30 - Constitutional Appears: No Acute Distress (jaundiced) - Eye Exam Eye Exam: Scleral icterus - ENT Exam ENT Exam: Mucous Membranes Moist - Respiratory Exam Respiratory Exam: NORMAL BREATHING PATTERN - Cardiovascular Exam Cardiovascular Exam: REGULAR RHYTHM - GI/Abdominal Exam GI & Abdominal Exam: Soft. absent: Guarding, Tenderness - Extremities Exam Additional comments: rle edema, minimal ecchymosis of lateral leg - Neurological Exam Neurological Exam: Alert, Awake, Oriented x3 Assessment and Plan (1) Thigh hematoma Assessment & Plan: 51 year old male with liver cirrhosis admitted for right thigh hematoma and coagulopathy. The patients overall condition has improved since admission. Hematoma appears to be resolving, Hg stable : 10. Appears coagulopathy is resolving as well. Physiatry was consulted and recommendations appreciated. Has started physical therapy, continue with PT. -Monitor CBC -jaundice from hematoma resorption -PT as per physiatry -pain controlled, medications were adjusted and patient is now more alert. -continue 1:1, fall precautions in place. Status: Acute (2) Pancytopenia Assessment & Plan: stable. anemia: 10.0, thrombocytopenia : 129, leukopenia resolved. -etiology unclear: coagulopathy vs side effect of keppra. -monitor cbc Status: Acute (3) Coagulopathy Assessment & Plan: -improving, last inr 2.3, stable -likely secondary to liver disease -Hematology is following Status: Acute (4) Jaundice Assessment & Plan: -persists and is likely due to resorption of hematoma in the setting of chronic liver disease Status: Acute (5) Liver cirrhosis, alcoholic Assessment & Plan: -Meld score 29. -2' to alcohol abuse -s/p TIPS Status: Chronic (6) History of seizure Assessment & Plan: -Keppra held due to pancytopenia that appears to be resolving. -will continue to monitor for seizures. Status: Chronic (7) DVT prophylaxis Assessment & Plan: -contraindicating as patient +UA, FOBT+ and thrombocytopenia in the setting of coagulopathy -scds Status: Acute
--- NOTE | 2017-01-28 15:12 | CP.PCM.DIS ---
Provider - Provider Date of Admission: 01/13/17 13:01 Attending physician: Chanelle Rowe MD Hospital Course - Lab Results Lab Results: Micro Results 01/22/17 17:15 Naris MRSA Culture (Admit) - Final MRSA NOT DETECTED 01/15/17 08:40 Naris MRSA Culture (Admit) - Final MRSA NOT DETECTED 01/15/17 12:43 Urine Urine Culture - Final No Growth (<1,000 CFU/ML) Most Recent Lab Values WBC 6.5 K/uL (4.8-10.8) 01/28/17 08:20 RBC 2.93 Mil/uL (4.40-5.90) L 01/28/17 08:20 Hgb 10.0 g/dL (12.0-18.0) L 01/28/17 08:20 Hct 29.4 % (35.0-51.0) L 01/28/17 08:20 MCV 100.3 fl (80.0-94.0) H 01/28/17 08:20 MCH 34.2 pg (27.0-31.0) H 01/28/17 08:20 MCHC 34.1 g/dL (33.0-37.0) 01/28/17 08:20 RDW 24.8 % (11.5-14.5) H 01/28/17 08:20 Plt Count 129 K/uL (130-400) L 01/28/17 08:20 MPV 8.1 fl (7.2-11.7) 01/17/17 19:30 Neut % (Auto) 56.3 % (50.0-75.0) 01/17/17 19:30 Lymph % (Auto) 19.1 % (20.0-40.0) L 01/17/17 19:30 Amador % (Auto) 18.5 % (0.0-10.0) H 01/17/17 19:30 Eos % (Auto) 5.3 % (0.0-4.0) H 01/17/17 19:30 Baso % (Auto) 0.8 % (0.0-2.0) 01/17/17 19:30 Neut # 1.5 K/uL (1.8-7.0) L 01/17/17 19:30 Lymph # 0.5 K/uL (1.0-4.3) L 01/17/17 19:30 Amador # 0.5 K/uL (0.0-0.8) 01/17/17 19:30 Eos # 0.1 K/uL (0.0-0.7) 01/17/17 19:30 Baso # 0.0 K/uL (0.0-0.2) 01/17/17 19:30 ESR 36 mm/hr (0-15) H 01/13/17 11:25 Retic Count 7.6 % (0.5-1.5) H 01/19/17 04:20 Haptoglobin <15 mg/dL (43-212) L 01/19/17 04:20 PT 24.3 Seconds (9.8-13.1) H 01/27/17 06:05 INR 2.3 (0.9-1.2) H 01/27/17 06:05 APTT 37.7 Seconds (25.6-37.1) H 01/24/17 05:30 Fibrinogen 176 mg/dl (200-400) L 01/24/17 05:30 Sodium 135 mmol/l (132-148) 01/25/17 05:00 Potassium 4.1 MMOL/L (3.6-5.0) 01/25/17 05:00 Chloride 104 mmol/L (98-107) 01/25/17 05:00 Carbon Dioxide 25 mmol/L (22-30) 01/25/17 05:00 Anion Gap 11 (10-20) 01/25/17 05:00 BUN 10 mg/dl (9-20) 01/25/17 05:00 Creatinine 0.6 mg/dL (0.8-1.5) L 01/25/17 05:00 Est GFR ( Amer) > 60 01/25/17 05:00 Est GFR (Non-Af Amer) > 60 01/25/17 05:00 Random Glucose 98 mg/dL (75-110) 01/25/17 05:00 Calcium 8.5 mg/dL (8.4-10.2) 01/25/17 05:00 Phosphorus 3.2 mg/dl (2.5-4.5) 01/22/17 04:20 Magnesium 1.6 MG/DL (1.6-2.3) 01/27/17 06:05 Ferritin 367.0 ng/mL 01/21/17 04:30 Total Bilirubin 20.2 mg/dl (0.2-1.3) H 01/25/17 05:00 Direct Bilirubin 10.5 mg/ml (0.0-0.4) H 01/24/17 05:30 AST 114 U/L (17-59) H 01/25/17 05:00 ALT 64 U/L (21-72) 01/25/17 05:00 Alkaline Phosphatase 129 U/L (38-126) H 01/25/17 05:00 Ammonia 19 umo/L (16-60) D 01/22/17 04:20 Lactate Dehydrogenase 823 U/L (313-618) H 01/24/17 05:30 Total Creatine Kinase 287 U/L (55-170) H 01/20/17 04:25 Total Protein 7.4 G/DL (6.3-8.2) 01/25/17 05:00 Albumin 3.1 g/dL (3.5-5.0) L 01/25/17 05:00 Globulin 4.3 gm/dL (2.2-3.9) H 01/25/17 05:00 Albumin/Globulin Ratio 0.7 (1.0-2.1) L 01/25/17 05:00 Amylase 81 U/L (30-110) 01/15/17 06:15 Lipase 91 U/L (23-300) 01/15/17 06:15 Alpha Fetoprotein 2.1 IU/mL (0.0-7.22) 01/28/17 06:45 Vitamin B12 923 pg/mL (239-931) 01/21/17 04:30 Folate 4.9 ng/mL 01/21/17 04:30 Urine Color [place] (YELLOW) 01/19/17 21:00 Urine Clarity Slighty-cloudy (Clear) 01/19/17 21:00 Urine pH 6.0 (5.0-8.0) 01/19/17 21:00 Ur Specific [place] 1.024 (1.003-1.030) 01/19/17 21:00 Urine Protein Negative mg/dL (NEGATIVE) 01/19/17 21:00 Urine Glucose (UA) Neg mg/dL (Normal) 01/19/17 21:00 Urine Ketones Negative mg/dL (NEGATIVE) 01/19/17 21:00 Urine Blood Small (NEGATIVE) 01/19/17 21:00 Urine Nitrate Negative (NEGATIVE) 01/19/17 21:00 Urine Bilirubin Moderate (NEGATIVE) 01/19/17 21:00 Urine Urobilinogen 4.0 mg/dL (0.2-1.0) 01/19/17 21:00 Ur Leukocyte Esterase Neg [place]/uL (Negative) 01/19/17 21:00 Urine RBC (Auto) 2 /hpf (0-3) 01/19/17 21:00 Urine Microscopic WBC 3 /hpf (0-5) 01/19/17 21:00 Ur Squamous Epith Cells < 1 /hpf (0-5) 01/19/17 21:00 Calcium Oxalate Crystal Occ /hpf (<OCC) H 01/15/17 12:43 Urine Bacteria Rare (<OCC) 01/19/17 21:00 Stool Occult Blood Positive (NEGATIVE) H 01/15/17 08:23 Levetiracetam 8.8 mcg/mL 01/16/17 09:30 Alcohol, Quantitative 11 mg/dl (0-10) H 01/13/17 11:25 Hepatitis A IgM Ab Negative (NEGATIVE) 01/21/17 04:30 Hep Bs Antigen Negative (NEGATIVE) 01/21/17 04:30 Hep B Core IgM Ab Negative (NEGATIVE) 01/21/17 04:30 Hepatitis C Antibody Negative (NEGATIVE) 01/21/17 04:30 HIV-1 Ab Rapid Screen Non reactive (NON REAC) 01/21/17 04:30 Blood Type O POSITIVE 01/23/17 15:55 Antibody Screen Negative 01/23/17 15:55 Antibody Identification Anti Radha 01/17/17 06:30 XIMENA, Poly Interpret Negative (NEGATIVE) 01/19/17 04:20 Crossmatch See Detail 01/17/17 06:30 BBK History Checked Patient has bt 01/23/17 15:55 Discharge Exam - Head Exam Head Exam: ATRAUMATIC, NORMAL INSPECTION, NORMOCEPHALIC Discharge Plan - Follow Up Plan Condition: FAIR Disposition: HOME/ ROUTINE Instructions: Epilepsy (DC), Alcohol Intoxication (DC) [facility] [phone] Referrals: [facility] [place] [Outside]
[2017-01-28 16:13] VITALS: BP 122/64; PULSE 84; TEMP 98.6; O2SAT 99
== END 2017-01-28 18:28 | disposition home health service (06) | DRG 397 ==
LOC: H.ER 10:02 → H.ERHOLD 13:01 → H.MEDSURG1 17:22 → H.ICU/CCU 01-15 20:07 → H.MEDSURG1 01-22 16:23
PROVIDERS: ADMIT Family Medicine Geriatric Medicine; ATTEND Family Medicine Geriatric Medicine
PROC: 30233K1 Transfusion of Nonautologous Frozen Plasma into Peripheral Vein, Percutaneous Approach (ICD-10-PCS; principal; 2017-01-13)
PROC: 30233N1 Transfusion of Nonautologous Red Blood Cells into Peripheral Vein, Percutaneous Approach (ICD-10-PCS; 2017-01-15)
DX: D68.4 Acquired coagulation factor deficiency (principal); D61.818 Other pancytopenia; K76.6 Portal hypertension; D62 Acute posthemorrhagic anemia; D69.59 Other secondary thrombocytopenia; E83.42 Hypomagnesemia; K70.30 Alcoholic cirrhosis of liver without ascites; F10.20 Alcohol dependence, uncomplicated; G40.909 Epilepsy, unspecified, not intractable, without status epilepticus; D73.1 Hypersplenism; S70.11XA Contusion of right thigh, initial encounter; W19.XXXA Unspecified fall, initial encounter; Y90.0 Blood alcohol level of less than 20 mg/100 ml; F17.210 Nicotine dependence, cigarettes, uncomplicated; Z88.6 Allergy status to analgesic agent; Y92.9 Unspecified place or not applicable

== ENCOUNTER 2017-01-31 20:39 | Emergency (ER) | payer MEDICAID ==
[2017-01-31 20:39] VITALS: BMI 23.0
[2017-01-31 20:43] VITALS: BP 130/64; PULSE 94; RESP 16; TEMP 98.3; O2SAT 100
--- NOTE | 2017-01-31 20:54 | ED PDOC ---
Lower Extremity Pain/Injury Time Seen by Provider: 01/31/17 20:50 Chief Complaint (Nursing): Lower Extremity Problem/Injury Chief Complaint (Provider): Right lower extremity pain History Per: Patient History/Exam Limitations: no limitations Onset/Duration Of Symptoms: Days Current Symptoms Are (Timing): Still Present Severity: Moderate Pain Scale Rating Of: 8 Additional History Per: Patient Additional Complaint(s): Pt is a 51 y/o male with pmhx of cirrhosis due to alcohol abuse, pt was recently discharged from the hospital after a 2 week stay due right leg hematoma that extended across the entire extremity as pt was actively into the extremity and unable to clot given. After multiple blood transfusion and FFP and platelets transfusions, his H/H finally stablized and right leg swelling decreased in size. Pt was discharged home on Wednesday01/29/17, Pt returns to ED today with complaints of pain in the same extremity being unbearable and needing morphine for the pain. He also reports he feels as though his leg is starting to swell up again. denies any numbness, tingling, pain out of proportion to his injury, right leg feeling cold, chest pain, sob, or dizziness - Risk Factors DVT Risk Factors: Pos: Hospitalization Past Medical History Vital Signs: Last Vital Signs Temp 98.3 F 01/31/17 20:40 Pulse 94 H 01/31/17 20:40 Resp 16 01/31/17 20:40 BP 130/64 01/31/17 20:40 Pulse Ox 100 01/31/17 20:40 - Medical History PMH: Anemia, Back Problems (herniated disc), Fractures (left shoulder, Left hand 5th digit), Gastritis, Pancreatitis (patient denies), Seizures (last ), Chronic Pain (left shoulder) Denies: HTN (Denies as per patient), Parkinson's Disease, Chronic Kidney Disease - Surgical History Surgical History: Endoscopy - Family History Family History: States: No Known Family Hx - Home Medications Home Medications: Ambulatory Orders Medication Instructions Recorded levETIRAcetam [Keppra] 500 mg PO BID 10/16/16 Folic Acid 1 mg PO DAILY #30 tab 01/28/17 Thiamine [Vitamin B1 Tab] 100 mg PO DAILY #30 tab 01/28/17 - Allergies Allergies/Adverse Reactions: Allergies Allergy/AdvReac Type Severity Reaction Status Date / Time aspirin Allergy NAUSEA Verified 11/07/16 15:22 Physical Exam - Reviewed Vital Signs Reviewed: Yes - Physical Exam Appears: Positive for: Non-toxic, No Acute Distress Head Exam: Positive for: NORMOCEPHALIC Skin: Positive for: Jaundice Cardiovascular/Chest: Positive for: Regular Rate, Rhythm, Chest Non Tender Respiratory: Positive for: Normal Breath Sounds. Negative for: Decreased Breath Sounds, Accessory Muscle Use Pulses-Dorsalis Pedis (L): 2+ Pulses-Dorsalis Pedis (R): 2+ Gastrointestinal/Abdominal: Positive for: Normal Exam, Bowel Sounds, Soft. Negative for: Tenderness Extremity: Positive for: Swelling (right leg is swollen compared to left; has full ROM ) - Laboratory Results Result Diagrams: 01/31/17 21:00 01/31/17 21:00 - ECG O2 Sat by Pulse Oximetry: 100 - Progress ED Course And Treament: cbc cmp pt/ptt morphine for pain Re-evaluation Time: 22:00 Condition: Improving,but remains with symptoms Medical Decision Making Medical Decision Making: Hemoglobin continues to improve Pt/INR continues to improve pt already has outpatient appointment scheduled with his PCP, will be discharged home Disposition - Clinical Impression Clinical Impression: Chronic pain - Patient ED Disposition Is Patient to be Admitted: No - Disposition Disposition: Routine/Home Disposition Time: 22:40 Condition: GOOD Additional Instructions: Please follow up with your PCP as scheduled and have labs done as given prior to discharge. Instructions: Acetaminophen (By mouth), Arthralgia (ED) Forms: [email or web address] (Bolivian) Print Language: ESTONIAN
[2017-01-31 21:17] LABS: HEMOGLOBIN 10.6 g/dL (12.0-18.0); MEAN CELL VOLUME 102.7 fl (80.0-94.0); MEAN CORPUSCULAR HEMOGLOBIN 34.7 pg (27.0-31.0); MEAN CORPUSCULAR HGB CONC 33.8 g/dL (33.0-37.0); RBC 3.07 Mil/uL (4.40-5.90); RED CELL DISTRIBUTION WIDTH 23.8 % (11.5-14.5); WHITE BLOOD COUNT 6.7 K/uL (4.8-10.8)
[2017-01-31 21:24] LABS: ALB/GLOB RATIO 0.7 (1.0-2.1); ALBUMIN 3.6 g/dL (3.5-5.0); ALT/SGPT 64 U/L (21-72); AST/SGOT 103 U/L (17-59); BLOOD UREA NITROGEN 19 mg/dl (9-20); CALCIUM 8.8 mg/dL (8.4-10.2); GFR AFRICAN-AMERICAN > 60; GFR NON-AFRICAN AMERICAN > 60
[2017-01-31 22:27] LABS: INR 2.3 (0.9-1.2); PROTHROMBIN TIME 24.4 Seconds (9.8-13.1)
[2017-01-31 22:28] LABS: PARTIAL THROMBOPLASTIN TIME 44.5 Seconds (25.6-37.1)
== END 2017-01-31 22:47 | disposition home or self-care (01) ==
LOC: H.ER 20:39
DX: G89.29 Other chronic pain (principal); D64.9 Anemia, unspecified

== ENCOUNTER 2017-02-12 09:56 | Emergency (ER) | payer MEDICAID ==
[2017-02-12 10:08] VITALS: BMI 22.3
[2017-02-12 10:10] VITALS: RESP 17; TEMP 98.4; O2SAT 100
--- NOTE | 2017-02-12 10:46 | ED PDOC ---
Lower Extremity Pain/Injury Time Seen by Provider: 02/12/17 10:18 Chief Complaint (Nursing): Lower Extremity Problem/Injury Chief Complaint (Provider): right leg pain History Per: Patient History/Exam Limitations: no limitations Onset/Duration Of Symptoms: Days (5+) Current Symptoms Are (Timing): Still Present Severity: Moderate Additional Complaint(s): 51yo male history significant for recent prolonged hospital stay due to hematoma / possible infection RLE, discharged 01/31 now c/o ongoing pain to RLE. States swelling has improved, did have a fall yesterday when visiting RN was at his home. Denies head or neck injury. States out of his tramadol at home and unable to refill new Rx. Denies fever. Past Medical History Reviewed: Historical Data, Nursing Documentation, Vital Signs Vital Signs: Last Vital Signs Temp 98.4 F 02/12/17 10:08 Pulse 88 02/12/17 10:08 Resp 17 02/12/17 10:08 BP 120/69 02/12/17 10:08 Pulse Ox 100 02/12/17 10:08 - Medical History PMH: Anemia, Back Problems (herniated disc), Fractures (left shoulder, Left hand 5th digit), Gastritis, Seizures (last 01/11/17), Chronic Pain (left shoulder ) Denies: HTN (Denies as per patient), Pancreatitis (patient denies), Parkinson 's Disease, Chronic Kidney Disease - Surgical History Surgical History: Endoscopy - Family History Family History: States: Unknown Family Hx - Social History Alcohol: Other (prior etoh abuse) - Home Medications Home Medications: Ambulatory Orders Medication Instructions Recorded levETIRAcetam [Keppra] 500 mg PO BID 10/16/16 Folic Acid 1 mg PO DAILY #30 tab 01/28/17 Thiamine [Vitamin B1 Tab] 100 mg PO DAILY #30 tab 01/28/17 Zolpidem [Ambien] 5 mg PO HS PRN #7 tab 02/12/17 levETIRAcetam [Keppra] 500 mg PO BID #30 tab 02/12/17 - Allergies Allergies/Adverse Reactions: Allergies Allergy/AdvReac Type Severity Reaction Status Date / Time aspirin Allergy NAUSEA Verified 11/07/16 15:22 Review of Systems ROS Statement: Except As Marked, All Systems Reviewed And Found Negative Constitutional: Positive for: Weakness. Negative for: Fever, Chills Cardiovascular: Negative for: Chest Pain, Palpitations Respiratory: Negative for: Cough, Shortness of Breath Gastrointestinal: Negative for: Nausea, Vomiting Genitourinary Male: Negative for: Dysuria Musculoskeletal: Positive for: Back Pain, Leg Pain, Foot Pain Skin: Negative for: Rash, Lesions, Jaundice Neurological: Positive for: Dizziness. Negative for: Weakness, Numbness, Headache Psych: Positive for: Depression. Negative for: Anxiety, Suicidal ideation Physical Exam - Reviewed Nursing Documentation Reviewed: Yes Vital Signs Reviewed: Yes - Physical Exam Appears: Positive for: Well, Non-toxic, No Acute Distress Head Exam: Positive for: ATRAUMATIC, NORMAL INSPECTION, NORMOCEPHALIC Skin: Positive for: Normal Color, Warm, DRY Eye Exam: Positive for: EOMI, Normal appearance, PERRL ENT: Positive for: Normal ENT Inspection Neck: Positive for: Normal, Painless ROM Cardiovascular/Chest: Positive for: Regular Rate, Rhythm Respiratory: Positive for: CNT, Normal Breath Sounds Gastrointestinal/Abdominal: Positive for: Bowel Sounds, Soft. Negative for: Tenderness Back: Positive for: Normal Inspection Extremity: Positive for: Swelling (RLE mild edema and erythema to posterior thigh and into upper/mid calf, normal ROM no deformity) Neurologic/Psych: Positive for: Alert, Oriented - Laboratory Results Result Diagrams: 02/12/17 10:50 02/12/17 10:50 - ECG O2 Sat by Pulse Oximetry: 100 Medical Decision Making Medical Decision Making: workup initiated for RLE pain w recent history hematoma RLE. labs ordered and reviewed, WBC and total CK unremarkable FP service Dr Ray and Dr Tinsley who are familiar w patient and saw leg in acute phase, examined patient. US performed revealing fluid collection posterior to R knee. Area posterior to knee is nontender, nonfluctuant and patient has ROM of knee. Given normal WBC, improvement of swelling per pt, this is unlikely to be abscess and rather resolving hematoma from prior. Risk of infection discussed w patient however. Rx tramadol for pain, refill keppra and trial ambien 5mg on pt request for sleep. Appt obtained for outpatient clinic followup wednesday. Disposition - Clinical Impression Clinical Impression: Leg pain, Hematoma - Patient ED Disposition Is Patient to be Admitted: No - Disposition Referrals: [facility] [Outside] Disposition: Routine/Home Disposition Time: 13:40 Condition: STABLE Additional Instructions: Use warm compress to back of right knee 3x daily for 3 days. Return to ER for any worse or new symptoms. Take pain medication as directed. You have an appt on saturday 02/[address] Carvalho in clinic. Prescriptions: levETIRAcetam [Keppra] 500 mg PO BID #30 tab Zolpidem [Ambien] 5 mg PO HS PRN #7 tab PRN Reason: Sleep Instructions: Leg Pain (ED), Hematoma (ED) Forms: [employer] (Pakistani)
[2017-02-12] MEDS ORDERED: Sodium Chloride 0.9% 1,000 ML IV STA (11:00)
[2017-02-12 11:06] LABS: BASO # 0.1 K/uL (0.0-0.2); BASO % 2.3 % (0.0-2.0); EOS # 0.4 K/uL (0.0-0.7); EOS % 7.6 % (0.0-4.0); HEMATOCRIT 32.4 % (35.0-51.0); LYMPH # 0.9 K/uL (1.0-4.3); MEAN CELL VOLUME 102.5 fl (80.0-94.0); MEAN CORPUSCULAR HEMOGLOBIN 34.8 pg (27.0-31.0); MEAN PLATELET VOLUME 7.8 fl (7.2-11.7); MONO # 0.6 K/uL (0.0-0.8); MONO % 11.7 % (0.0-10.0); NEUT # 3.2 K/uL (1.8-7.0); NEUT % 60.4 % (50.0-75.0); NRBC % 0.1 % (0.0-0.0); RED CELL DISTRIBUTION WIDTH 20.7 % (11.5-14.5); WHITE BLOOD COUNT 5.3 K/uL (4.8-10.8)
[2017-02-12 11:14] LABS: ALB/GLOB RATIO 0.7 (1.0-2.1); ALKALINE PHOSPHATASE 195 U/L (38-126); ALT/SGPT 67 U/L (21-72); AST/SGOT 102 U/L (17-59); BILIRUBIN,TOTAL 7.5 mg/dl (0.2-1.3); BLOOD UREA NITROGEN 14 mg/dl (9-20); CALCIUM 8.7 mg/dL (8.4-10.2); CARBON DIOXIDE 24 mmol/L (22-30); CHLORIDE 109 mmol/L (98-107); GFR AFRICAN-AMERICAN > 60; GLUCOSE,RANDOM 109 mg/dL (75-110); POTASSIUM 4.1 MMOL/L (3.6-5.0); SODIUM 141 mmol/l (132-148); TOTAL PROTEIN 7.8 G/DL (6.3-8.2)
[2017-02-12 11:17] LABS: PARTIAL THROMBOPLASTIN TIME 43.1 Seconds (25.6-37.1)
--- NOTE | 2017-02-12 12:03 | RAD ---
PROCEDURE: Right Knee Radiographs. HISTORY: fall COMPARISON: Comparison made with radiographs of the right knee 05/22/2010 FINDINGS: BONES: No evidence of acute displaced fracture nor dislocation JOINTS: Normal. No osteoarthritis. JOINT EFFUSION: Poor patient positioning on the lateral view evaluation slightly limited however there does appear to be a small suprapatellar joint effusion OTHER FINDINGS: None. IMPRESSION: No evidence of displaced fracture nor dislocation. Suspect small suprapatellar joint effusion
--- NOTE | 2017-02-12 12:37 | RAD ---
PROCEDURE: Right femur 02/12/2017 HISTORY: fall COMPARISON: Comparison made with concurrent radiographs of the pelvis. TECHNIQUE: AP and lateral views of the right femur performed. FINDINGS: No evidence of acute displaced fracture nor dislocation. Right femoral head is appropriately located within the right acetabulum. No significant degenerative osteoarthritis. Note that the distal femur and knee joint has not been included on this study and therefore cannot be adequately evaluated. Consider followup imaging studies if symptoms persist or occult fracture suspected clinically Soft tissues appear grossly unremarkable. IMPRESSION: Slightly limited study demonstrating no acute fractures. . Consider followup studies if further evaluation is required as above
--- NOTE | 2017-02-12 12:39 | RAD ---
PROCEDURE: Pelvis dated 02/12/2017. HISTORY: Fall. COMPARISON: Comparison made with concurrent radiographs right femur FINDINGS: Intact no evidence of acute displaced fracture nor dislocation. The pelvic ring appears intact. Both femoral heads are appropriately located within the respective acetabula. Minimal spurring along superolateral margins of the acetabular roofs. SI joints intact and patent. Followup CT scan could be performed if symptoms persist or occult fracture suspected clinically Impression: No definitive radiographic evidence of acute displaced fracture nor dislocation. Consider followup imaging studies if symptoms persist or occult fracture suspected clinically as above
--- NOTE | 2017-02-12 13:28 | US ---
PROCEDURE: Right lower extremity venous duplex Doppler. HISTORY: RLE pain, hx hematoma COMPARISON: None available. TECHNIQUE: Common femoral, superficial femoral, popliteal and posterior tibial veins were evaluated. Flow was assessed with color Doppler, compressibility, assessment of phasic flow and augmentation response. FINDINGS: COMMON FEMORAL VEIN: Unremarkable. SUPERFICIAL FEMORAL VEIN: Unremarkable. POPLITEAL VEIN: Unremarkable. POSTERIOR TIBIAL VEIN: Unremarkable. The radial testicular please OTHER FINDINGS: Note is made of an approximately 6.4 x 2.3 x 4.9 cm complex appearing fluid collection within the popliteal fossa. . This collection could represent resolving popliteal hematoma however superimposed infection not excluded IMPRESSION: No evidence of deep venous thrombosis in the right lower extremity. . Note made of a elliptical shaped complex appearing fluid collection popliteal fossa as described. Rule out of resolving hematoma. Possibility of a superimposed infection not excluded.
[2017-02-12 14:19] VITALS: BP 140/76; PULSE 76
== END 2017-02-12 14:19 | disposition home or self-care (01) ==
LOC: H.ER 09:56
DX: S80.11XA Contusion of right lower leg, initial encounter (principal); W19.XXXA Unspecified fall, initial encounter; Y92.008 Other place in unspecified non-institutional (private) residence as the place of occurrence of the external cause; G20 Parkinson's disease; G89.29 Other chronic pain; N18.9 Chronic kidney disease, unspecified
CPT/HCPCS: 72170; 73552; 73562; 80053; 82550; 85025; 85610; 85730; 93971; 96361; 96374; 96375; 99282; J2270; J2405; J7040

== ENCOUNTER 2017-02-19 17:29 | Emergency (ER) | payer MEDICAID ==
[2017-02-19 17:29] VITALS: BMI 22.3
[2017-02-19 17:42] VITALS: BP 133/63; PULSE 87; RESP 19; TEMP 98.8; O2SAT 99
--- NOTE | 2017-02-19 17:53 | ED PDOC ---
Lower Extremity Pain/Injury Time Seen by Provider: 02/19/17 17:41 Chief Complaint (Nursing): Lower Extremity Problem/Injury Chief Complaint (Provider): Right leg pain History Per: Patient History/Exam Limitations: no limitations Onset/Duration Of Symptoms: Other (1 month) Current Symptoms Are (Timing): Still Present Pain Scale Rating Of: 9 Additional Complaint(s): Patient is a 51 y/o male presenting to the emergency department for itchy right leg pain ongoing for one month that extends from his right calf to his mid- thigh and is associated with a resolving hematoma. Of note, patient recently ran out of his Tramadol medication that was prescribed to him. Denies chest pain , shortness of breath, or other complaints. PCP: Dr. Yen Carvalho Past Medical History Vital Signs: Last Vital Signs Temp 98.8 F 02/19/17 17:41 Pulse 87 02/19/17 17:41 Resp 19 02/19/17 17:41 BP 133/63 02/19/17 17:41 Pulse Ox 99 02/19/17 17:41 - Medical History PMH: Anemia, Back Problems (herniated disc), Fractures (left shoulder, Left hand 5th digit), Gastritis, Seizures (last 01/11/17), Chronic Pain (left shoulder ) Denies: HTN (Denies as per patient), Pancreatitis (patient denies), Parkinson 's Disease, Chronic Kidney Disease - Surgical History Surgical History: Endoscopy - Family History Family History: States: Unknown Family Hx - Home Medications Home Medications: Ambulatory Orders Medication Instructions Recorded levETIRAcetam [Keppra] 500 mg PO BID 10/16/16 Folic Acid 1 mg PO DAILY #30 tab 01/28/17 Thiamine [Vitamin B1 Tab] 100 mg PO DAILY #30 tab 01/28/17 Zolpidem [Ambien] 5 mg PO HS PRN #7 tab 02/12/17 levETIRAcetam [Keppra] 500 mg PO BID #30 tab 02/12/17 - Allergies Allergies/Adverse Reactions: Allergies Allergy/AdvReac Type Severity Reaction Status Date / Time aspirin Allergy NAUSEA Verified 11/07/16 15:22 Review of Systems ROS Statement: Except As Marked, All Systems Reviewed And Found Negative Cardiovascular: Negative for: Chest Pain Respiratory: Negative for: Shortness of Breath Musculoskeletal: Positive for: Leg Pain (right, itchy and worsening pain, from calf to mid-thigh) Physical Exam - Reviewed Nursing Documentation Reviewed: Yes Vital Signs Reviewed: Yes - Physical Exam Appears: Positive for: Well, Non-toxic, No Acute Distress Head Exam: Positive for: ATRAUMATIC, NORMAL INSPECTION, NORMOCEPHALIC Skin: Positive for: Normal Color, Warm, Dry Eye Exam: Positive for: Normal appearance. Negative for: Scleral icterus Neck: Positive for: Normal, Supple Respiratory: Negative for: Accessory Muscle Use, Respiratory Distress Neurologic/Psych: Positive for: Alert, Oriented (x3) - ECG O2 Sat by Pulse Oximetry: 99 (RA) Pulse Ox Interpretation: Normal Medical Decision Making Medical Decision Making: Time: 17:50 Initial impression: Right leg pain Initial plan: Ultram 50 mg PO Patient agrees to plan for pain management and is advised to follow up with his doctor. 18:00 Upon provider reevaluation patient is feeling better, is medically stable, and requires no further treatment in the ED at this time. Counseling was provided and all questions were answered regarding diagnosis and need to follow up with PCP. There is agreement to discharge plan. Return if symptoms persist or worsen. Scribe Attestation: Documented by Luanne Araujo, acting as a scribe for STEPHAN Navarro. Provider Scribe Attestation: All medical record entries made by the Scribe were at my direction and personally dictated by me. I have reviewed the chart and agree that the record accurately reflects my personal performance of the history, physical exam, medical decision making, and the department course for this patient. I have also personally directed, reviewed, and agree with the discharge instructions and disposition. Disposition - Clinical Impression Clinical Impression: Thigh hematoma Doctor Will See Patient In The: Office Counseled Patient/Family Regarding: Need For Followup - Disposition Disposition: Routine/Home Disposition Time: 18:00 Condition: STABLE Instructions: Hematoma (ED) Forms: [employer] (Icelandic)
== END 2017-02-19 18:06 | disposition home or self-care (01) ==
LOC: H.ER 17:29
DX: M79.604 Pain in right leg (principal); G20 Parkinson's disease; G89.29 Other chronic pain; N18.9 Chronic kidney disease, unspecified

== ENCOUNTER 2017-05-02 08:13 | Inpatient (IN) | payer MEDICAID ==
[2017-05-02 08:17] VITALS: BMI 23.0
--- NOTE | 2017-05-02 08:54 | ED PDOC ---
HPI:Nausea, Vomiting, Diarrhea Time Seen by Provider: 05/02/17 08:40 Chief Complaint (Nursing): Abdominal Pain Chief Complaint (Provider): vomiting History Per: Patient History/Exam Limitations: no limitations Onset/Duration Of Symptoms: Hrs (x1) Current Symptoms Are (Timing): Still Present Additional Complaint(s): Shreyas Sepulveda is a 52 year old male with previous medical history of liver cirrhosis and seizures, who presents to the emergency department with a complaint of 4 episodes of brown-colored vomiting ongoing since last night. Denied abdominal pain, diarrhea, nausea, rectal bleeding, bloody stools, fever or chills. Patient reported drinking 2 large ice tea drinks and "half a shot" yesterday. Last vomit episode was an hour prior to arrival. PMD: none provided Past Medical History Reviewed: Historical Data, Nursing Documentation, Vital Signs Vital Signs: Last Vital Signs Temp 98.1 F 05/02/17 08:15 Pulse 125 H 05/02/17 08:15 Resp 17 05/02/17 08:15 BP 143/70 05/02/17 08:15 Pulse Ox 100 05/02/17 08:15 - Medical History PMH: Anemia, Back Problems (herniated disc), Fractures (left shoulder, Left hand 5th digit), Gastritis, Seizures (last 01/11/17), Chronic Pain (left shoulder ) Denies: HTN (Denies as per patient), Pancreatitis (patient denies), Parkinson 's Disease, Chronic Kidney Disease - Surgical History Surgical History: Endoscopy - Family History Family History: States: Unknown Family Hx - Social History Current smoker - smoking cessation education provided: Yes Alcohol: None Drugs: Denies - Home Medications Home Medications: Ambulatory Orders Medication Instructions Recorded levETIRAcetam [Keppra] 500 mg PO BID 10/16/16 Folic Acid 1 mg PO DAILY #30 tab 01/28/17 Thiamine [Vitamin B1 Tab] 100 mg PO DAILY #30 tab 01/28/17 Zolpidem [Ambien] 5 mg PO HS PRN #7 tab 02/12/17 - Allergies Allergies/Adverse Reactions: Allergies Allergy/AdvReac Type Severity Reaction Status Date / Time aspirin Allergy NAUSEA Verified 11/07/16 15:22 Review of Systems ROS Statement: Except As Marked, All Systems Reviewed And Found Negative Constitutional: Negative for: Fever, Chills Gastrointestinal: Positive for: Hematemesis. Negative for: Nausea, Abdominal Pain, Diarrhea, Melena, Hematochezia, Rectal Pain (or bleeding) Physical Exam - Reviewed Nursing Documentation Reviewed: Yes Vital Signs Reviewed: Yes - Physical Exam Appears: Positive for: Well, Non-toxic, No Acute Distress Head Exam: Positive for: ATRAUMATIC, NORMAL INSPECTION, NORMOCEPHALIC Skin: Positive for: Normal Color, Warm, Dry Eye Exam: Positive for: Normal appearance, EOMI ENT: Positive for: Normal ENT Inspection Neck: Positive for: Normal, Painless ROM, Supple. Negative for: Decreased ROM Cardiovascular/Chest: Positive for: Regular Rate, Rhythm, Chest Non Tender. Negative for: Tachycardia Respiratory: Positive for: Normal Breath Sounds. Negative for: Decreased Breath Sounds, Rhonchi, Respiratory Distress Pulses-Radial (L): 2+ Pulses-Radial (R): 2+ Gastrointestinal/Abdominal: Positive for: Normal Exam, Bowel Sounds, Soft. Negative for: Tenderness, Distended, Guarding, Rebound Extremity: Positive for: Normal ROM. Negative for: Tenderness Neurologic/Psych: Positive for: Alert (x3), Oriented - Laboratory Results Result Diagrams: 05/03/17 04:20 05/03/17 04:20 - ECG O2 Sat by Pulse Oximetry: 100 (RA) Pulse Ox Interpretation: Normal - Critical Care Total Time (In Min): 30 Medical Decision Making Medical Decision Making: Initial Impression: Hematemesis Differential Diagnosis: Upper G.I. bleed; peptic ulcer; gastritis Initial Plan: * Type and screen * CMP * Lipase * CBC * NS 1,000ml IV per 1,000mls/hr * Pepcid 20mg IVP * Protonix inj 40mg IVP Discussed the case with Dr Bradley who recommends admission with protonix and octreotide drips. Patient is candidate for ICU due to early hemorrhagic shock, acute blood loss, and active GI Bleed with possible esophageal varices and coagulopathy. Scribe Attestation: Documented by Dulce Hoffmann, acting as a scribe for Cathy Salazar MD. Provider Scribe Attestation: All medical record entries made by the Scribe were at my direction and personally dictated by me. I have reviewed the chart and agree that the record accurately reflects my personal performance of the history, physical exam, medical decision making, and the department course for this patient. I have also personally directed, reviewed, and agree with the discharge instructions and disposition. Disposition - Clinical Impression Clinical Impression: GI bleed - Patient ED Disposition Is Patient to be Admitted: Yes Discussed With .: Charlie Deleon Doctor Will See Patient In The: ED Counseled Patient/Family Regarding: Studies Performed, Diagnosis - Disposition Disposition Time: 12:20 Condition: GUARDED - Pt Status Changed To: Hospital Disposition Of: Inpatient - Admit Certification Admit to Inpatient:: After my assessment, the patient will require hospitalization for at least two midnights. This is because of the severity of symptoms shown, intensity of services needed, and/or the medical risk in this patient being treated as an outpatient. - POA Present On Arrival: Poor Glycemic Control Critical Care Time - Critical Care Note Total Time (in mins): 30 Documented critical care: time excludes all time spent performing seperately billable procedures.
[2017-05-02] MEDS ORDERED: Sodium Chloride 0.9% 1,000 ML IV STA (09:10)
[2017-05-02 09:48] LABS: BASO # 0.1 K/uL (0.0-0.2); BASO % 1.8 % (0.0-2.0); EOS # 0.3 K/uL (0.0-0.7); EOS % 6.2 % (0.0-4.0); HEMATOCRIT 27.3 % (35.0-51.0); LYMPH # 0.7 K/uL (1.0-4.3); LYMPH % 15.3 % (20.0-40.0); MEAN CELL VOLUME 102.2 fl (80.0-94.0); MEAN CORPUSCULAR HEMOGLOBIN 34.3 pg (27.0-31.0); MEAN CORPUSCULAR HGB CONC 33.5 g/dL (33.0-37.0); MONO # 0.6 K/uL (0.0-0.8); NEUT # 2.9 K/uL (1.8-7.0); NEUT % 62.7 % (50.0-75.0); RED CELL DISTRIBUTION WIDTH 14.1 % (11.5-14.5); WHITE BLOOD COUNT 4.6 K/uL (4.8-10.8)
[2017-05-02 10:09] LABS: ALB/GLOB RATIO 0.8 (1.0-2.1); ALKALINE PHOSPHATASE 182 U/L (38-126); ALT/SGPT 51 U/L (21-72); AST/SGOT 77 U/L (17-59); BILIRUBIN,TOTAL 5.3 mg/dl (0.2-1.3); BLOOD UREA NITROGEN 30 mg/dl (9-20); CALCIUM 8.1 mg/dL (8.4-10.2); CARBON DIOXIDE 24 mmol/L (22-30); CHLORIDE 110 mmol/L (98-107); GFR AFRICAN-AMERICAN > 60; GLUCOSE,RANDOM 115 mg/dL (75-110); LIPASE 212 U/L (23-300); POTASSIUM 3.7 MMOL/L (3.6-5.0); SODIUM 146 mmol/l (132-148)
[2017-05-02 10:16] LABS: PARTIAL THROMBOPLASTIN TIME 34.3 Seconds (25.6-37.1)
[2017-05-02] MEDS ORDERED: Octreotide 500 mcg/ml Inj IV STA (12:07)
[2017-05-02] MEDS: Pantoprazole 40 MG in Sodium Chloride 0.9% 100 ML IVPB SCH ×3 (12:58→21:32)
--- NOTE | 2017-05-02 13:46 | CP.PCM.HP ---
History of Present Illness - History of Present Illness History of Present Illness: CC: 52 y/o male with a PMHx remarkable for seizures, ETOH Abuse, Hepatic encephalopathy, pancytopenia, Stage F4 Liver cirrhosis secondary to ETOH abuse presents to [facility] ED complaining of several episodes of dark brown emesis. Pt reports he was in a usual state of health yesterday, till he started feeling very thirsty and bloated. He reports he then drank "2 large iced teas, 2 large birch, and a little bit of Sambucha". He reports he then felt extremely bloated and nauseous. At about 4 am, he went to the bathroom and had approx 5-6 episodes of dark brown possibly bloody of emesis. He then didnt feel much better so he came to the ED for evaluation. He denies any fever/chills, sick contacts, abdominal pain, dizziness/lightheadedness, CP/SOB/palpitations, D/C, melena, hematochezia, urinary symptoms, numbness/tingling. ROS: remainder of 12 points reviewed, found to be negative PMD: [facility]. Last seen by PMD 04/27/2017, Seen by GI Dr. Bradley 04/30/2017 PMHx: ETOH abuse (last drink last night), Epilepsy controlled via Keppra (last seizure approx 4 years ago) Meds: Keppra 500mg PO BID, Folic acid, Thiamine PsurgHx: TIPS in 2014 PHospHx: multiple ED visits for ETOH abuse, Hepatic Encelopathy SocialHx: 7 cigarettes per day since 15, ETOH abuse, and denies illicit drug use -lives in [place] with roommate -Contact info sister Missy given: [phone] FamilyHx: Father [place], mother breast cancer, siblings alive, sister recently diagnosed with colon cancer ED Course: Vitals on presentation: T 98.1, HR 125, BP 143/70, RR 17, POX 100% RA Labs: CBC: 4.6>9.1/27.3<51 INR: 1.9 BUN/Cr: 30/0.7 Lipase 212 Albumin 3.1 Alk Phos: 182 T. Bili: 5.2 Serum Alcohol <10 Imaging: none Consults: GI: recommended Octreotide Admitted to ICU. Present on Admission - Present on Admission Any Indicators Present on Admission: No Past Patient History - Infectious Disease Hx of Infectious Diseases: None - Tetanus Immunizations Tetanus Immunization: Unknown - Past Medical History & Family History Past Medical History?: Yes - Past Social History Alcohol: None Drugs: Denies - CARDIAC Hx Hypertension: No (Denies as per patient) - PULMONARY Hx Respiratory Disorders: No - NEUROLOGICAL Hx Parkinson's Disease: No Hx Seizures: Yes (last 01/11/17) - HEENT Hx HEENT Problems: No - RENAL Hx Chronic Kidney Disease: No - ENDOCRINE/METABOLIC Hx Endocrine Disorders: No Hx Diabetes Mellitus Type 2: No - HEMATOLOGICAL/ONCOLOGICAL Hx Anemia: Yes - INTEGUMENTARY Hx Dermatological Problems: No - MUSCULOSKELETAL/RHEUMATOLOGICAL Hx Fractures: Yes (left shoulder, Left hand 5th digit) - GASTROINTESTINAL Hx Gastritis: Yes Hx Pancreatitis: No (patient denies) - PSYCHIATRIC Hx Psychophysiologic Disorder: No Hx Substance Use: No - SURGICAL HISTORY Hx Surgeries: Yes Other/Comment: stent for liver - ANESTHESIA Hx Anesthesia: Yes Hx Anesthesia Reactions: No Meds Allergies/Adverse Reactions: Allergies Allergy/AdvReac Type Severity Reaction Status Date / Time aspirin Allergy NAUSEA Verified 11/07/16 15:22 Physical Exam - Constitutional Appears: Non-toxic, No Acute Distress, Unkempt - Head Exam Head Exam: ATRAUMATIC, NORMOCEPHALIC - Eye Exam Eye Exam: EOMI. absent: Conjunctival injection, Scleral icterus Pupil Exam: PERRL - ENT Exam ENT Exam: Mucous Membranes Moist - Neck Exam Neck exam: Positive for: Full Rom. Negative for: Lymphadenopathy - Respiratory Exam Respiratory Exam: Clear to Auscultation Bilateral, NORMAL BREATHING PATTERN. absent: Rales, Rhonchi, Wheezes - Cardiovascular Exam Cardiovascular Exam: REGULAR RHYTHM, RRR, +S1, +S2. absent: Tachycardia, JVD, Rubs - GI/Abdominal Exam GI & Abdominal Exam: Firm, Normal Bowel Sounds, Soft. absent: Distended, Guarding, Rebound, Rigid, Tenderness - Extremities Exam Extremities exam: Positive for: normal inspection, pedal pulses present. Negative for: calf tenderness, pedal edema - Back Exam Back exam: NORMAL INSPECTION - Neurological Exam Neurological exam: Alert, CN II-XII Intact, Oriented x3, Reflexes Normal - Psychiatric Exam Psychiatric exam: Normal Affect, Normal Mood - Skin Skin Exam: Dry, Intact, Normal Color Results - Vital Signs Recent Vital Signs: Last Vital Signs Temp 97.8 F 05/02/17 13:11 Pulse 99 H 05/02/17 13:11 Resp 16 05/02/17 13:11 BP 138/81 05/02/17 13:11 Pulse Ox 98 05/02/17 13:11 - Labs Result Diagrams: 05/02/17 09:30 05/02/17 09:30 Labs: Laboratory Results - last 24 hr 05/02/17 05/02/17 05/02/17 09:30 09:30 09:30 WBC 4.6 L RBC 2.67 L Hgb 9.1 L D Hct 27.3 L MCV 102.2 H D MCH 34.3 H MCHC 33.5 RDW 14.1 Plt Count 51 L D MPV 8.0 Neut % (Auto) 62.7 Lymph % (Auto) 15.3 L [place] % (Auto) 14.0 H Eos % (Auto) 6.2 H Baso % (Auto) 1.8 Neut # 2.9 Lymph # 0.7 L [place] # 0.6 Eos # 0.3 Baso # 0.1 PT INR APTT Sodium 146 Potassium 3.7 Chloride 110 H Carbon Dioxide 24 Anion Gap 16 BUN 30 H Creatinine 0.7 L Est GFR ( Amer) > 60 Est GFR (Non-Af Amer) > 60 Random Glucose 115 H Calcium 8.1 L Total Bilirubin 5.3 H AST 77 H ALT 51 Alkaline Phosphatase 182 H D Total Protein 7.0 Albumin 3.1 L Globulin 3.9 Albumin/Globulin Ratio 0.8 L Lipase 212 Blood Type O POSITIVE Antibody Screen Positive Antibody Identification Anti Radha BBK History Checked Patient has bt 05/02/17 09:30 WBC RBC Hgb Hct MCV MCH MCHC RDW Plt Count MPV Neut % (Auto) Lymph % (Auto) [place] % (Auto) Eos % (Auto) Baso % (Auto) Neut # Lymph # [place] # Eos # Baso # PT 21.4 H INR 1.9 H APTT 34.3 Sodium Potassium Chloride Carbon Dioxide Anion Gap BUN Creatinine Est GFR ( Amer) Est GFR (Non-Af Amer) Random Glucose Calcium Total Bilirubin AST ALT Alkaline Phosphatase Total Protein Albumin Globulin Albumin/Globulin Ratio Lipase Blood Type Antibody Screen Antibody Identification BBK History Checked Assessment & Plan - Assessment and Plan (Free Text) Assessment: Assessment: 52 y/o male with a PMHx remarkable for stage 4 liver cirrhosis secondary to ETOH Abuse, ETOH abuse, Chronic Pancytopenia, hepatic encephalopathy and seizures admitted for acute upper GI bleed. Plan: 1) Acute GI Bleed: -Likely upper GI based on hx -NPO diet -s/p 1L NS in ER -NS @ 80 mls/hr -Zofran 4mg IVP Q6H PRN N/V -s/p 1 dose Octreotide 50mcg -c/w Octreotide 50mcg/hr -IV Protonix 40mg drip -pt denies melena/hematochezia but due to drop of >2pts in Hb since last visit will monitor CBC -Fecal Occult blood: pending -GI consult appreciated 2) Stage F4 Liver Cirrhosis secondary to ETOH abuse -MELD Score (2016): 20 pts -stable -monitor vitals/labs 3) Chronic Pancytopenia -likely secondary to bone marrow suppression from Chronic ETOH abuse -monitor 4) Seizures -controlled, asymptomatic x4 years -c/w IV Keppra 500mg BID till diet is advanced 5) ETOH abuse -serum Alc today <10 -monitor vitals for possible withdrawal -Librium 50mg PRN 6) DVT Prophylaxis: -SCDs -no anticoagulation as pt is actively bleeding with thrombocytopenia
[2017-05-02] MEDS: Sodium Chloride 0.9% 1,000 ML IV SCH (14:45)
[2017-05-02 16:17] LABS: IRON 189 ug/dL (49-181)
[2017-05-02] MEDS: levETIRAcetam 500 MG in Sodium Chloride 0.9% 100 ML IVPB SCH (21:31)
--- NOTE | 2017-05-03 01:46 | CON ---
CRITICAL CARE CONSULTATION NOTE DATE: 05/02/2017 LOCATION: The patient admitted to ICU bed 433. HISTORY OF PRESENT ILLNESS: The patient is seen and examined at the bedside. Events in the ER reviewed. Past medical, surgical, social history noted. Mr. Dillon is a 52-year-old male. Past medical history remarkable for EtOH abuse related seizure disorder, liver cirrhosis, hepatic encephalopathy, pancytopenia, admitted through emergency room complaining of several episodes of dark brown emesis early this morning. The patient was in his usual state of health until yesterday when he started feeling very thirsty, bloated, drank 2 large iced teas and 2 large . [place] nauseated and vomited coffee-ground material. Came to emergency room. In the ER, the patient's vital signs were temperature normal, blood pressure 140/76, heart rate of 102, respiratory rate 18. The patient was hydrated with 1 L IV fluid. Initial lab data showed white count of 4.6, hemoglobin 9.1, hematocrit 27.3, platelet count 51, BUN 30, creatinine 0.7, potassium 3.7 and alcohol level less than 10. CURRENT MEDICATIONS AT HOME: Include Keppra 500 mg twice daily, folic acid 1 mg daily, thiamine 100 mg daily. PAST SURGICAL HISTORY: Includes the TIPS done in 2014. Injury to his right leg in January 2017. The patient is admitted to as recommended by GI/ER consult. PHYSICAL EXAMINATION: GENERAL: On examination, middle-aged male, in no distress. VITAL SIGNS: Temperature 98.3; heart rate 98, regular; blood pressure 131/61; mean arterial pressure 84; respiratory rate 19, thoracoabdominal; saturating 100% on room air. Weight 165 pounds. HEENT: Pupils reactive. Sclerae icteric. NECK: Supple. Trachea central. CHEST: Bilateral breath sounds. Clear to auscultation. HEART: Rhythm regular. S1, S2 normal. ABDOMEN: Bowel sounds present. Mildly distended. Nontender. LABORATORY DATA: WBC is 4.6, hemoglobin 9.1, hematocrit 27.3, platelet count 51. PT 21.4, INR 1.9, PTT 34.3. Chemistry, [facility]-7: Sodium 146, potassium 3.7, chloride 110, CO2 of 24, blood urea nitrogen 30, creatinine 0.7, random glucose 115, calcium 8.1, total bilirubin 5.3, AST 77, ALT 51, alkaline phosphatase 182, total protein 7, albumin 3.1, lipase 212, alcohol level less than 10. Microbiology: No imaging available. IMPRESSION: 1. Gastrointestinal: Acute gastrointestinal bleed, likely upper gastrointestinal based on history. N.p.o. Status post 1 L saline in ER to continue at 80 mL/hour. Zofran 4 mg IV q. 6 p.r.n. Continue with octreotide 50 mcg/hour, IV Protonix 40 mg daily. Gastroenterology consult followup. Liver cirrhosis secondary to ethyl alcohol abuse, status post transjugular intrahepatic portosystemic shunt, remains stable. Chronic pancytopenia secondary to bone marrow suppression from chronic ethyl alcohol abuse. 2. Neurologic: History of seizure disorder. Controlled on Keppra 500 mg b.i.d. 3. Pulmonary: No acute issues. 4. Cardiac: No arrhythmias noted. 5. Endocrine: Blood sugar is 115 mg, renal. BUN 30, creatinine 0.7. No electrolyte abnormalities noted. 6. Infectious Disease: No acute issues noted. Continue with Keppra, octreotide, Protonix, IV hydration followed by Gastroenterology consult. Closely monitor for further hematemesis and for further drop in hemoglobin and hematocrit. Lincoln Gutierrez MD
[2017-05-03] MEDS: Pantoprazole 40 MG in Sodium Chloride 0.9% 100 ML IVPB SCH ×2 (02:50→08:45)
[2017-05-03] MEDS: Sodium Chloride 0.9% 1,000 ML IV SCH ×2 (02:52→21:16)
[2017-05-03 05:09] LABS: HEMATOCRIT 23.4 % (35.0-51.0); MEAN CELL VOLUME 102.2 fl (80.0-94.0); MEAN CORPUSCULAR HEMOGLOBIN 34.9 pg (27.0-31.0); MEAN CORPUSCULAR HGB CONC 34.1 g/dL (33.0-37.0); RED CELL DISTRIBUTION WIDTH 13.7 % (11.5-14.5); WHITE BLOOD COUNT 4.2 K/uL (4.8-10.8)
[2017-05-03 05:18] LABS: ALB/GLOB RATIO 0.7 (1.0-2.1); ALKALINE PHOSPHATASE 142 U/L (38-126); ALT/SGPT 45 U/L (21-72); AST/SGOT 73 U/L (17-59); BILIRUBIN,TOTAL 5.8 mg/dl (0.2-1.3); BLOOD UREA NITROGEN 20 mg/dl (9-20); CALCIUM 7.2 mg/dL (8.4-10.2); CARBON DIOXIDE 22 mmol/L (22-30); CHLORIDE 113 mmol/L (98-107); GFR AFRICAN-AMERICAN > 60; GLUCOSE,RANDOM 104 mg/dL (75-110); POTASSIUM 3.6 MMOL/L (3.6-5.0); SODIUM 143 mmol/l (132-148)
[2017-05-03] MEDS ORDERED: Pneumococcal 23-Valent Vaccine IM ONE (06:22)
[2017-05-03] MEDS: levETIRAcetam 500 MG in Sodium Chloride 0.9% 100 ML IVPB SCH ×2 (08:46→21:11)
--- NOTE | 2017-05-03 09:28 | CP.PCM.CON ---
<Reyes Rangel - Last Filed: 05/03/17 14:51> History of Present Illness - History of Present Illness History of Present Illness: Initial GI Consult Shreyas Sepulveda is a 52M w/ hx of Etoh abuse, cirrhosis 2/2 ETOH s/p TIPS, epilepsy who presented to the ED yesterday with complaints of brown emesis. Pt states that he started experiencing episodes of emesis and nausea since the morning of admission. He reports the emesis of being brown and denies any bright red blood and coffee-grounds. He states that he had a TIPS procedure in 2014. He states that he has previously had an abd paracentesis. He denies any fever, chills, or diaphoresis. He denies any melena and bright red blood per rectum. He notes that he had 1 bowel movement yesterday and it was brown. He presented with a hgb of 9 with a baseline around 10-11. It subsequently dropped to ~8 today. Pt has previous admission for upper GI bleed. In 10/2014 pt was admitted for upper GI bleed, which was likely 2/2 Hypertensive portal gastropathy. The admission resulted in a TIPs procedure. In 11/2015, a repeat EGD reveled no esophageal varices and mild gastric varices. Pt denies ever having any abd paracentesis. He notes 2 other previous admissions for HE. PMHx: ETOH abuse (last drink was 3 days ago, supposedly "half a shot"), Epilepsy , Cirrhosis 2/2 ETOH PsurgHx: TIPS in 2014 PHospHx: multiple ED visits for ETOH abuse FamilyHx: Father [place], mother breast cancer;sister diagnosed with colon cancer at age 58 SocialHx: -7 cigarettes per day since 15, ETOH abuse, and denies illicit drug use Endosopy hx: multiple EGD Past Patient History - Infectious Disease Hx of Infectious Diseases: None - Tetanus Immunizations Tetanus Immunization: Unknown - Past Medical History & Family History Past Medical History?: Yes - Past Social History Alcohol: None Drugs: Denies - CARDIAC Hx Hypertension: No (Denies as per patient) - PULMONARY Hx Respiratory Disorders: No - NEUROLOGICAL Hx Parkinson's Disease: No Hx Seizures: Yes (last 01/11/17) - HEENT Hx HEENT Problems: No - RENAL Hx Chronic Kidney Disease: No - ENDOCRINE/METABOLIC Hx Endocrine Disorders: No Hx Diabetes Mellitus Type 2: No - HEMATOLOGICAL/ONCOLOGICAL Hx Anemia: Yes - INTEGUMENTARY Hx Dermatological Problems: No - MUSCULOSKELETAL/RHEUMATOLOGICAL Hx Fractures: Yes (left shoulder, Left hand 5th digit) - GASTROINTESTINAL Hx Gastritis: Yes Hx Pancreatitis: No (patient denies) - PSYCHIATRIC Hx Psychophysiologic Disorder: No Hx Substance Use: No - SURGICAL HISTORY Hx Surgeries: Yes Other/Comment: stent for liver - ANESTHESIA Hx Anesthesia: Yes Hx Anesthesia Reactions: No Meds Allergies/Adverse Reactions: Allergies Allergy/AdvReac Type Severity Reaction Status Date / Time aspirin Allergy NAUSEA Verified 11/07/16 15:22 - Medications Medications: Current Medications Chlordiazepoxide (Librium) 50 mg PO Q6 PRN PRN Reason: Anxiety Pantoprazole Sodium 40 mg/ (Sodium Chloride) 100 mls @ 20 mls/hr IVPB Q5H JANNIE PRN Reason: 8 MG/HR Last Admin: 05/03/17 08:45 Dose: 20 mls/hr Octreotide Acetate 1,250 mcg/ (Sodium Chloride) 252.5 mls @ 10.1 mls/hr IV .Q24H JANNIE PRN Reason: 50 MCG/HR Last Admin: 05/02/17 12:58 Dose: 10.1 mls/hr Sodium Chloride (Sodium Chloride 0.9%) 1,000 mls @ 80 mls/hr IV .[id number] JANNIE Last Admin: 05/03/17 02:52 Dose: 80 mls/hr Levetiracetam 500 mg/ Sodium (Chloride) 105 mls @ 210 mls/hr IVPB Q12 JANNIE Last Admin: 05/03/17 08:46 Dose: 210 mls/hr Ceftriaxone Sodium (Rocephin Iv 1 Gm Duplex) 50 mls @ 50 mls/hr IVPB ONCE ONE PRN Reason: Protocol Stop: 05/03/17 11:59 Ondansetron HCl (Zofran Inj) 4 mg IVP Q6 PRN PRN Reason: Nausea/Vomiting Physical Exam - Constitutional Appears: Well, No Acute Distress - Head Exam Head Exam: ATRAUMATIC, NORMOCEPHALIC - Eye Exam Eye Exam: Normal appearance - ENT Exam ENT Exam: Mucous Membranes Moist - Respiratory Exam Respiratory Exam: Clear to Auscultation Bilateral, NORMAL BREATHING PATTERN. absent: Prolonged Expiratory Phase, Rales, Rhonchi, Wheezes, Respiratory Distress - Cardiovascular Exam Cardiovascular Exam: REGULAR RHYTHM, +S1, +S2 - GI/Abdominal Exam GI & Abdominal Exam: Normal Bowel Sounds, Soft. absent: Distended, Guarding, Rebound, Rigid - Extremities Exam Extremities exam: Negative for: joint swelling, pedal edema - Neurological Exam Neurological exam: Alert, Oriented x3 - Psychiatric Exam Psychiatric exam: Normal Affect, Normal Mood - Skin Skin Exam: Dry, Intact, Normal Color, Warm Results - Vital Signs Recent Vital Signs: Last Vital Signs Temp 99.2 F 05/03/17 08:00 Pulse 78 05/03/17 08:00 Resp 13 05/03/17 08:00 BP 104/52 L 05/03/17 08:00 Pulse Ox 97 05/03/17 08:00 - Labs Result Diagrams: 05/03/17 04:20 05/03/17 04:20 Labs: Laboratory Results - last 24 hr 05/02/17 05/02/17 05/02/17 09:30 09:30 09:30 WBC 4.6 L RBC 2.67 L Hgb 9.1 L D Hct 27.3 L MCV 102.2 H D MCH 34.3 H MCHC 33.5 RDW 14.1 Plt Count 51 L D MPV 8.0 Neut % (Auto) 62.7 Lymph % (Auto) 15.3 L [place] % (Auto) 14.0 H Eos % (Auto) 6.2 H Baso % (Auto) 1.8 Neut # 2.9 Lymph # 0.7 L [place] # 0.6 Eos # 0.3 Baso # 0.1 Retic Count PT INR APTT Sodium 146 Potassium 3.7 Chloride 110 H Carbon Dioxide 24 Anion Gap 16 BUN 30 H Creatinine 0.7 L Est GFR ( Amer) > 60 Est GFR (Non-Af Amer) > 60 POC Glucose (mg/dL) Random Glucose 115 H Calcium 8.1 L Iron TIBC % Saturation Ferritin Total Bilirubin 5.3 H AST 77 H ALT 51 Alkaline Phosphatase 182 H D Total Protein 7.0 Albumin 3.1 L Globulin 3.9 Albumin/Globulin Ratio 0.8 L Lipase 212 Alcohol, Quantitative Blood Type O POSITIVE Antibody Screen Positive Antibody Identification Anti Radha BBK History Checked Patient has bt 05/02/17 05/02/17 05/02/17 09:30 13:29 15:00 WBC RBC Hgb Hct MCV MCH MCHC RDW Plt Count MPV Neut % (Auto) Lymph % (Auto) [place] % (Auto) Eos % (Auto) Baso % (Auto) Neut # Lymph # [place] # Eos # Baso # Retic Count 2.0 H D PT 21.4 H INR 1.9 H APTT 34.3 Sodium Potassium Chloride Carbon Dioxide Anion Gap BUN Creatinine Est GFR ( Amer) Est GFR (Non-Af Amer) POC Glucose (mg/dL) Random Glucose Calcium Iron TIBC % Saturation Ferritin Total Bilirubin AST ALT Alkaline Phosphatase Total Protein Albumin Globulin Albumin/Globulin Ratio Lipase Alcohol, Quantitative < 10 Blood Type Antibody Screen Antibody Identification BBK History Checked 05/02/17 05/02/17 05/02/17 15:00 17:30 21:22 WBC RBC Hgb Hct MCV MCH MCHC RDW Plt Count MPV Neut % (Auto) Lymph % (Auto) [place] % (Auto) Eos % (Auto) Baso % (Auto) Neut # Lymph # [place] # Eos # Baso # Retic Count PT INR APTT Sodium Potassium Chloride Carbon Dioxide Anion Gap BUN Creatinine Est GFR ( Amer) Est GFR (Non-Af Amer) POC Glucose (mg/dL) 109 Random Glucose Calcium Iron 189 H TIBC 237 L % Saturation 80 H Ferritin 277.0 Total Bilirubin AST ALT Alkaline Phosphatase Total Protein Albumin Globulin Albumin/Globulin Ratio Lipase Alcohol, Quantitative Blood Type Antibody Screen Antibody Identification BBK History Checked 05/03/17 05/03/17 05/03/17 04:20 04:20 05:32 WBC 4.2 L RBC 2.29 L Hgb 8.0 L Hct 23.4 L MCV 102.2 H MCH 34.9 H MCHC 34.1 RDW 13.7 Plt Count 47 L MPV Neut % (Auto) Lymph % (Auto) [place] % (Auto) Eos % (Auto) Baso % (Auto) Neut # Lymph # [place] # Eos # Baso # Retic Count PT INR APTT Sodium 143 Potassium 3.6 Chloride 113 H Carbon Dioxide 22 Anion Gap 12 BUN 20 Creatinine 0.7 L Est GFR ( Amer) > 60 Est GFR (Non-Af Amer) > 60 POC Glucose (mg/dL) 130 H Random Glucose 104 Calcium 7.2 L Iron TIBC % Saturation Ferritin Total Bilirubin 5.8 H AST 73 H ALT 45 Alkaline Phosphatase 142 H D Total Protein 6.0 L Albumin 2.5 L Globulin 3.5 Albumin/Globulin Ratio 0.7 L Lipase Alcohol, Quantitative Blood Type Antibody Screen Antibody Identification BBK History Checked 05/03/17 08:40 WBC RBC Hgb Hct MCV MCH MCHC RDW Plt Count MPV Neut % (Auto) Lymph % (Auto) [place] % (Auto) Eos % (Auto) Baso % (Auto) Neut # Lymph # [place] # Eos # Baso # Retic Count PT 22.2 H INR 1.9 H APTT Sodium Potassium Chloride Carbon Dioxide Anion Gap BUN Creatinine Est GFR ( Amer) Est GFR (Non-Af Amer) POC Glucose (mg/dL) Random Glucose Calcium Iron TIBC % Saturation Ferritin Total Bilirubin AST ALT Alkaline Phosphatase Total Protein Albumin Globulin Albumin/Globulin Ratio Lipase Alcohol, Quantitative Blood Type Antibody Screen Antibody Identification BBK History Checked Assessment & Plan - Assessment and Plan (Free Text) Assessment: Shreyas Sepulveda is a 52M w/ hx of decompensated cirrhosis 2/2 ETOH s/p TIPS, hx of ETOH abuse who presents with possible hematemesis and anemia. 1. Possible upper GI bleed 2. Anemia 3. Decompensated liver cirrhosis 2/2 ETOH s/p TIPS 4. hx of ETOH abuse Plan: -s/p TIPS in 2014 -HGb sropped to ~8 -NPO since last night -will do am EGD today -2 units of PRBC on hold -Will give 2 units of FFP today in the AM before the procedure -Will give 1g of ceftriaxone IV today before the procedure -consent in chart -maintain 2 large IV bore lines -continue octreotide for now , s/p bolus -continue PPI IV daily D/W Dr. Bradley <Gage Bradley MD - Last Filed: 05/03/17 15:09> Meds - Medications Medications: Current Medications Chlordiazepoxide (Librium) 50 mg PO Q6 PRN PRN Reason: Anxiety Sodium Chloride (Sodium Chloride 0.9%) 1,000 mls @ 80 mls/hr IV .[id number] [facility] Last Admin: 05/03/17 02:52 Dose: 80 mls/hr Levetiracetam 500 mg/ Sodium (Chloride) 105 mls @ 210 mls/hr IVPB Q12 JANNIE Last Admin: 05/03/17 08:46 Dose: 210 mls/hr Ondansetron HCl (Zofran Inj) 4 mg IVP Q6 PRN PRN Reason: Nausea/Vomiting Pantoprazole Sodium (Protonix Ec Tab) 40 mg PO ACB JANNIE Results - Vital Signs Recent Vital Signs: Last Vital Signs Temp 97 F L 05/03/17 13:50 Pulse 76 05/03/17 13:50 Resp 18 05/03/17 13:50 BP 110/65 05/03/17 13:50 Pulse Ox 100 05/03/17 13:50 - Labs Result Diagrams: 05/03/17 04:20 05/03/17 04:20 Labs: Laboratory Results - last 24 hr 05/02/17 05/02/17 05/02/17 09:30 15:00 15:00 WBC RBC Hgb Hct MCV MCH MCHC RDW Plt Count Retic Count 2.0 H D PT INR Sodium Potassium Chloride Carbon Dioxide Anion Gap BUN Creatinine Est GFR ( Amer) Est GFR (Non-Af Amer) POC Glucose (mg/dL) Random Glucose Calcium Iron 189 H TIBC 237 L % Saturation 80 H Ferritin Total Bilirubin AST ALT Alkaline Phosphatase Total Protein Albumin Globulin Albumin/Globulin Ratio Blood Type O POSITIVE Antibody Screen Positive Antibody Identification Anti Radha Crossmatch See Detail BBK History Checked Patient has bt 05/02/17 05/02/17 05/03/17 17:30 21:22 04:20 WBC 4.2 L RBC 2.29 L Hgb 8.0 L Hct 23.4 L MCV 102.2 H MCH 34.9 H MCHC 34.1 RDW 13.7 Plt Count 47 L Retic Count PT INR Sodium Potassium Chloride Carbon Dioxide Anion Gap BUN Creatinine Est GFR ( Amer) Est GFR (Non-Af Amer) POC Glucose (mg/dL) 109 Random Glucose Calcium Iron TIBC % Saturation Ferritin 277.0 Total Bilirubin AST ALT Alkaline Phosphatase Total Protein Albumin Globulin Albumin/Globulin Ratio Blood Type Antibody Screen Antibody Identification Crossmatch BBK History Checked 05/03/17 05/03/17 05/03/17 04:20 05:32 08:40 WBC RBC Hgb Hct MCV MCH MCHC RDW Plt Count Retic Count PT 22.2 H INR 1.9 H Sodium 143 Potassium 3.6 Chloride 113 H Carbon Dioxide 22 Anion Gap 12 BUN 20 Creatinine 0.7 L Est GFR ( Amer) > 60 Est GFR (Non-Af Amer) > 60 POC Glucose (mg/dL) 130 H Random Glucose 104 Calcium 7.2 L Iron TIBC % Saturation Ferritin Total Bilirubin 5.8 H AST 73 H ALT 45 Alkaline Phosphatase 142 H D Total Protein 6.0 L Albumin 2.5 L Globulin 3.5 Albumin/Globulin Ratio 0.7 L Blood Type Antibody Screen Antibody Identification Crossmatch BBK History Checked 05/03/17 11:27 WBC RBC Hgb Hct MCV MCH MCHC RDW Plt Count Retic Count PT INR Sodium Potassium Chloride Carbon Dioxide Anion Gap BUN Creatinine Est GFR ( Amer) Est GFR (Non-Af Amer) POC Glucose (mg/dL) 134 H Random Glucose Calcium Iron TIBC % Saturation Ferritin Total Bilirubin AST ALT Alkaline Phosphatase Total Protein Albumin Globulin Albumin/Globulin Ratio Blood Type Antibody Screen Antibody Identification Crossmatch BBK History Checked Attending/Attestation - Attestation I have personally seen and examined this patient.: Yes I have fully participated in the care of the patient.: Yes I have reviewed all pertinent clinical information: Yes Notes (Text): 05/03/17 15:07 Patient seen with Gi fellow. This is a 52 yr old M w/ hx of decompensated cirrhosis due to ETOH cirrhosis and GIB s/p TIPS, with continued alcohol dependance who presents with possible hematemesis and anemia. s/p EGD today that showed severe portal hypertensive gastropathy and no varices. can start regular low salt diet. Needs outpatient colonoscopy which is already scheduled. Discontinue octreotide and PPI gtt. Should follow in [facility]
[2017-05-03] MEDS ORDERED: cefTRIAXone IV 1 gm in Dextros 50 ML IVPB ONE (11:00)
[2017-05-03] MEDS ORDERED: EPINEPHrine 1 mg/ml (1:1000) Inj ONE (11:55)
[2017-05-03] MEDS ORDERED: Sodium Chloride 0.9% 250 ML IV ONE (12:57)
[2017-05-03] MEDS ORDERED: Propofol 10 mg/ml Inj (20 ML) ONE (13:09)
[2017-05-03] MEDS ORDERED: Lidocaine 2% MPF (5 ml) Inj ONE (13:09)
[2017-05-03] MEDS ORDERED: Benzocaine/Butamben/Tetracai 14-2-2% TOP Spray TOP ONE (13:12)
[2017-05-03] MEDS ORDERED: Chlorhexidine Gluconate 1 APPL/PKT TP ONE (13:37)
--- NOTE | 2017-05-03 14:33 | CP.PCM.PN ---
Subjective - Date & Time of Evaluation Date of Evaluation: 05/03/17 Time of Evaluation: 07:10 - Subjective Subjective: Patient seen and examined this morning at bedside, he is lying comfortable on bed, patient reports feeling better, denies nausea, no more vomiting today, no chest or abdominal pain, palpitations, headache, dizziness. Last BM yesterday dark brown as per pt. No urinary symptoms. Objective - Vital Signs/Intake and Output Vital Signs (last 24 hours): Temp Pulse Resp BP Pulse Ox 97 F L 76 18 110/65 100 05/03/17 13:50 05/03/17 13:50 05/03/17 13:50 05/03/17 13:50 05/03/17 13:50 Intake and Output: 05/03/17 05/03/17 06:59 18:59 Intake Total 1420 1308 Output Total 1000 580 Balance 420 728 - Medications Medications: Current Medications Chlordiazepoxide (Librium) 50 mg PO Q6 PRN PRN Reason: Anxiety Sodium Chloride (Sodium Chloride 0.9%) 1,000 mls @ 80 mls/hr IV .[id number] [facility] Last Admin: 05/03/17 02:52 Dose: 80 mls/hr Levetiracetam 500 mg/ Sodium (Chloride) 105 mls @ 210 mls/hr IVPB Q12 [facility] Last Admin: 05/03/17 08:46 Dose: 210 mls/hr Ondansetron HCl (Zofran Inj) 4 mg IVP Q6 PRN PRN Reason: Nausea/Vomiting Pantoprazole Sodium (Protonix Ec Tab) 40 mg PO ACB [facility] - Labs Labs: 05/03/17 04:20 05/03/17 04:20 PT 22.2 Seconds (9.8-13.1) H 05/03/17 08:40 INR 1.9 (0.9-1.2) H 05/03/17 08:40 APTT 34.3 Seconds (25.6-37.1) 05/02/17 09:30 - Constitutional Appears: No Acute Distress - Head Exam Head Exam: NORMAL INSPECTION - Eye Exam Eye Exam: EOMI, PERRL - ENT Exam ENT Exam: Mucous Membranes Moist - Respiratory Exam Respiratory Exam: Clear to Ausculation Bilateral. absent: Rales, Rhonchi, Wheezes - Cardiovascular Exam Cardiovascular Exam: REGULAR RHYTHM, +S1, +S2. absent: Tachycardia - GI/Abdominal Exam GI & Abdominal Exam: Soft, Normal Bowel Sounds. absent: Distended, Tenderness - Extremities Exam Extremities Exam: Normal Inspection. absent: Calf Tenderness - Neurological Exam Neurological Exam: Alert, Awake, Oriented x3 - Psychiatric Exam Psychiatric exam: Normal Mood - Skin Skin Exam: Dry, Warm Assessment and Plan - Assessment and Plan (Free Text) Assessment: 52 y/o male with a PMHx remarkable for stage 4 liver cirrhosis secondary to ETOH Abuse, ETOH abuse, Chronic Pancytopenia, hepatic encephalopathy and seizures admitted for acute upper GI bleed. Plan: Acute GI Bleed: -Likely upper GI based on hx -patient denies melena or hematochezia -NPO diet -NS @ 80 mls/hr -Zofran 4mg IVP Q6H PRN N/V -c/w Octreotide 50mcg/hr -IV Protonix 40mg drip -Fecal Occult blood: pending -GI consult appreciated by Dr Bradley -Patient for EGD today, f/u results Anemia, macrocytic -likely mixed secondary to GI bleed and Etoh abuse -Hgb/Htc 8.0/23.4 -Give PRBC 2 units as per GI recommendations. -monitor H/H Stage F4 Liver Cirrhosis secondary to ETOH abuse -MELD Score (2016): 20 pts -stable -INR 1.9 -Give FFP -monitor vitals/labs ETOH abuse -monitor vitals for possible withdrawal -Librium 50mg PRN 23.4 Chronic Pancytopenia -likely secondary to bone marrow suppression from Chronic ETOH abuse -monitor Seizures -controlled, asymptomatic x4 years -c/w IV Keppra 500mg BID till diet is advanced DVT Prophylaxis: -SCDs -no anticoagulation due to GI bleeding and thrombocytopenia -INR 1.9
--- NOTE | 2017-05-03 16:19 | CP.CCUPN ---
CCU Subjective - Physician Review Events Since Last Encounter (Free Text): 05/03/17 16:46 The patient was Seen/interviewed and examined by me at the bedside, Medical records reviewed and Management issues were discussed and formulated with the house staff. 52 Years old Male with PMHx of Etoh abuse, Liver cirrhosis S/p TIPS, Gastritis, anemia, Back Problems (herniated disc), left shoulder, Left hand 5th digit Fractures and Seizures who presented to the ED 05/02 with complaints of brown emesis. Admitte to the ICU for upper GI bleeding Underwent EJD today, Revealed severe portal hypertensive gastropathy and no evidence of active variceal bleed Off PPI and Octreotide drip Started on PO diet Clinically and hemodynamically improved and the plan is to transfer out of the ICU. CCU Objective - Vital Signs / Intake & Output Vital Signs (Last 4 hours): Vital Signs Temp Pulse Resp BP Pulse Ox 05/03/17 15:19 100 05/03/17 13:50 97 F L 76 18 110/65 100 05/03/17 13:35 97.6 F 79 17 103/54 L 100 Intake and Output (Last 8hrs): Intake & Output 05/03/17 05/03/17 05/03/17 06:59 14:59 22:59 Intake Total 880 1308 Output Total 400 580 Balance 480 728 Intake: IV 880 600 Intake, Piggyback 380 Oral 0 Blood Product 328 Output: Urine 400 580 Urine, Voided 400 580 Other: # Voids Urine, Voided 2 # Bowel Movements 0 - Physical Exam Head: Positive for: Atraumatic, Normocephalic Pupils: Positive for: PERRL Extroacular Muscles: Positive for: EOMI Conjunctiva: Positive for: Normal Mouth: Positive for: Moist Mucous Membranes Neck: Positive for: Normal Range of Motion, Trachea Midline. Negative for: Meningeal Signs, MIDLINE TENDERNESS, Paraspinal Tenderness, JVD, Lymphadenopathy , Bruit, Other Respiratory/Chest: Positive for: Clear to Auscultation, Good Air Exchange. Negative for: Respiratory Distress, Accessory Muscle Use, Wheezes, Decreased Breath Sounds, Rales, Rhonchi Cardiovascular: Positive for: Regular Rate and Rhythm, Normal S1, S2, Peripheal Pulses Present. Negative for: Murmurs, Irregular Rhythm, Tachycardic, Bradycardic Abdomen: Positive for: Normal Bowel Sounds. Negative for: Tenderness, Distention, Peritoneal Signs, Guarding Neurological: Positive for: GCS=15, CN II-XII Intact, Speech Normal, Motor Func Grossly Intact, Normal Sensory Function Skin: Positive for: Warm, Dry. Negative for: Rashes Psychiatric: Positive for: Alert, Oriented x 3 - Medications Active Medications: Active Medications Generic Name Dose Route Start Last Admin Trade Name Freq PRN Reason Stop Dose Admin Chlordiazepoxide 50 mg 05/02/17 20:03 Librium PO Q6 PRN Anxiety Sodium Chloride 1,000 mls @ 80 mls/hr 05/02/17 14:00 05/03/17 02:52 Sodium Chloride 0.9% IV 80 mls/hr .[id number] JANNIE Administration Levetiracetam 500 mg/ Sodium 105 mls @ 210 mls/hr 05/02/17 21:00 05/03/17 08: 46 Chloride IVPB 210 mls/hr Q12 JANNIE Administration Ondansetron HCl 4 mg 05/02/17 14:00 Zofran Inj IVP Q6 PRN Nausea/Vomiting Pantoprazole Sodium 40 mg 05/05/17 07:30 Protonix Ec Tab PO ACB JANN[facility] - Patient Studies Lab Studies: Microbiology Studies 05/02/17 16:00 MRSA Culture (Admit) - Final Nose MRSA NOT DETECTED Lab Studies 05/03/17 05/03/17 05/03/17 Range/Units 11:27 08:40 05:32 WBC (4.8-10.8) K/uL RBC (4.40-5.90) Mil/uL Hgb (12.0-18.0) g/dL Hct (35.0-51.0) % MCV (80.0-94.0) fl MCH (27.0-31.0) pg MCHC (33.0-37.0) g/dL RDW (11.5-14.5) % Plt Count (130-400) K/uL Retic Count (0.5-1.5) % PT 22.2 H (9.8-13.1) Seconds INR 1.9 H (0.9-1.2) Sodium (132-148) mmol/l Potassium (3.6-5.0) MMOL/L Chloride (98-107) mmol/L Carbon Dioxide (22-30) mmol/L Anion Gap (10-20) BUN (9-20) mg/dl Creatinine (0.8-1.5) mg/dL Est GFR ( Amer) Est GFR (Non-Af Amer) POC Glucose (mg/dL) 134 H 130 H (65-110) mg/dL Random Glucose (75-110) mg/dL Calcium (8.4-10.2) mg/dL Iron (49-181) ug/dL TIBC (250-450) ug/dL % Saturation (20-55) % Ferritin (17.9-464) ng/Ml Total Bilirubin (0.2-1.3) mg/dl AST (17-59) U/L ALT (21-72) U/L Alkaline Phosphatase (38-126) U/L Total Protein (6.3-8.2) G/DL Albumin (3.5-5.0) g/dL Globulin (2.2-3.9) gm/dL Albumin/Globulin Ratio (1.0-2.1) Blood Type Antibody Screen Antibody Identification Crossmatch BBK History Checked 05/03/17 05/03/17 05/02/17 Range/Units 04:20 04:20 21:22 WBC 4.2 L (4.8-10.8) K/uL RBC 2.29 L (4.40-5.90) Mil/uL Hgb 8.0 L (12.0-18.0) g/dL Hct 23.4 L (35.0-51.0) % MCV 102.2 H (80.0-94.0) fl MCH 34.9 H (27.0-31.0) pg MCHC 34.1 (33.0-37.0) g/dL RDW 13.7 (11.5-14.5) % Plt Count 47 L (130-400) K/uL Retic Count (0.5-1.5) % PT (9.8-13.1) Seconds INR (0.9-1.2) Sodium 143 (132-148) mmol/l Potassium 3.6 (3.6-5.0) MMOL/L Chloride 113 H (98-107) mmol/L Carbon Dioxide 22 (22-30) mmol/L Anion Gap 12 (10-20) BUN 20 (9-20) mg/dl Creatinine 0.7 L (0.8-1.5) mg/dL Est GFR ( Amer) > 60 Est GFR (Non-Af Amer) > 60 POC Glucose (mg/dL) 109 (65-110) mg/dL Random Glucose 104 (75-110) mg/dL Calcium 7.2 L (8.4-10.2) mg/dL Iron (49-181) ug/dL TIBC (250-450) ug/dL % Saturation (20-55) % Ferritin (17.9-464) ng/Ml Total Bilirubin 5.8 H (0.2-1.3) mg/dl AST 73 H (17-59) U/L ALT 45 (21-72) U/L Alkaline Phosphatase 142 H D (38-126) U/L Total Protein 6.0 L (6.3-8.2) G/DL Albumin 2.5 L (3.5-5.0) g/dL Globulin 3.5 (2.2-3.9) gm/dL Albumin/Globulin Ratio 0.7 L (1.0-2.1) Blood Type Antibody Screen Antibody Identification Crossmatch BBK History Checked 05/02/17 05/02/17 05/02/17 Range/Units 17:30 15:00 15:00 WBC (4.8-10.8) K/uL RBC (4.40-5.90) Mil/uL Hgb (12.0-18.0) g/dL Hct (35.0-51.0) % MCV (80.0-94.0) fl MCH (27.0-31.0) pg MCHC (33.0-37.0) g/dL RDW (11.5-14.5) % Plt Count (130-400) K/uL Retic Count 2.0 H D (0.5-1.5) % PT (9.8-13.1) Seconds INR (0.9-1.2) Sodium (132-148) mmol/l Potassium (3.6-5.0) MMOL/L Chloride (98-107) mmol/L Carbon Dioxide (22-30) mmol/L Anion Gap (10-20) BUN (9-20) mg/dl Creatinine (0.8-1.5) mg/dL Est GFR ( Amer) Est GFR (Non-Af Amer) POC Glucose (mg/dL) (65-110) mg/dL Random Glucose (75-110) mg/dL Calcium (8.4-10.2) mg/dL Iron 189 H (49-181) ug/dL TIBC 237 L (250-450) ug/dL % Saturation 80 H (20-55) % Ferritin 277.0 (17.9-464) ng/Ml Total Bilirubin (0.2-1.3) mg/dl AST (17-59) U/L ALT (21-72) U/L Alkaline Phosphatase (38-126) U/L Total Protein (6.3-8.2) G/DL Albumin (3.5-5.0) g/dL Globulin (2.2-3.9) gm/dL Albumin/Globulin Ratio (1.0-2.1) Blood Type Antibody Screen Antibody Identification Crossmatch BBK History Checked 05/02/17 Range/Units 09:30 WBC (4.8-10.8) K/uL RBC (4.40-5.90) Mil/uL Hgb (12.0-18.0) g/dL Hct (35.0-51.0) % MCV (80.0-94.0) fl MCH (27.0-31.0) pg MCHC (33.0-37.0) g/dL RDW (11.5-14.5) % Plt Count (130-400) K/uL Retic Count (0.5-1.5) % PT (9.8-13.1) Seconds INR (0.9-1.2) Sodium (132-148) mmol/l Potassium (3.6-5.0) MMOL/L Chloride (98-107) mmol/L Carbon Dioxide (22-30) mmol/L Anion Gap (10-20) BUN (9-20) mg/dl Creatinine (0.8-1.5) mg/dL Est GFR ( Amer) Est GFR (Non-Af Amer) POC Glucose (mg/dL) (65-110) mg/dL Random Glucose (75-110) mg/dL Calcium (8.4-10.2) mg/dL Iron (49-181) ug/dL TIBC (250-450) ug/dL % Saturation (20-55) % Ferritin (17.9-464) ng/Ml Total Bilirubin (0.2-1.3) mg/dl AST (17-59) U/L ALT (21-72) U/L Alkaline Phosphatase (38-126) U/L Total Protein (6.3-8.2) G/DL Albumin (3.5-5.0) g/dL Globulin (2.2-3.9) gm/dL Albumin/Globulin Ratio (1.0-2.1) Blood Type O POSITIVE Antibody Screen Positive Antibody Identification Anti Radha Crossmatch See Detail BBK History Checked Patient has bt Laboratory Results - last 24 hr 05/02/17 05/02/17 05/02/17 09:30 15:00 15:00 WBC RBC Hgb Hct MCV MCH MCHC RDW Plt Count Retic Count 2.0 H D PT INR Sodium Potassium Chloride Carbon Dioxide Anion Gap BUN Creatinine Est GFR ( Amer) Est GFR (Non-Af Amer) POC Glucose (mg/dL) Random Glucose Calcium Iron 189 H TIBC 237 L % Saturation 80 H Ferritin Total Bilirubin AST ALT Alkaline Phosphatase Total Protein Albumin Globulin Albumin/Globulin Ratio Blood Type O POSITIVE Antibody Screen Positive Antibody Identification Anti Radha Crossmatch See Detail BBK History Checked Patient has bt 05/02/17 05/02/17 05/03/17 17:30 21:22 04:20 WBC 4.2 L RBC 2.29 L Hgb 8.0 L Hct 23.4 L MCV 102.2 H MCH 34.9 H MCHC 34.1 RDW 13.7 Plt Count 47 L Retic Count PT INR Sodium Potassium Chloride Carbon Dioxide Anion Gap BUN Creatinine Est GFR ( Amer) Est GFR (Non-Af Amer) POC Glucose (mg/dL) 109 Random Glucose Calcium Iron TIBC % Saturation Ferritin 277.0 Total Bilirubin AST ALT Alkaline Phosphatase Total Protein Albumin Globulin Albumin/Globulin Ratio Blood Type Antibody Screen Antibody Identification Crossmatch BBK History Checked 05/03/17 05/03/17 05/03/17 04:20 05:32 08:40 WBC RBC Hgb Hct MCV MCH MCHC RDW Plt Count Retic Count PT 22.2 H INR 1.9 H Sodium 143 Potassium 3.6 Chloride 113 H Carbon Dioxide 22 Anion Gap 12 BUN 20 Creatinine 0.7 L Est GFR ( Amer) > 60 Est GFR (Non-Af Amer) > 60 POC Glucose (mg/dL) 130 H Random Glucose 104 Calcium 7.2 L Iron TIBC % Saturation Ferritin Total Bilirubin 5.8 H AST 73 H ALT 45 Alkaline Phosphatase 142 H D Total Protein 6.0 L Albumin 2.5 L Globulin 3.5 Albumin/Globulin Ratio 0.7 L Blood Type Antibody Screen Antibody Identification Crossmatch BBK History Checked 05/03/17 11:27 WBC RBC Hgb Hct MCV MCH MCHC RDW Plt Count Retic Count PT INR Sodium Potassium Chloride Carbon Dioxide Anion Gap BUN Creatinine Est GFR ( Amer) Est GFR (Non-Af Amer) POC Glucose (mg/dL) 134 H Random Glucose Calcium Iron TIBC % Saturation Ferritin Total Bilirubin AST ALT Alkaline Phosphatase Total Protein Albumin Globulin Albumin/Globulin Ratio Blood Type Antibody Screen Antibody Identification Crossmatch BBK History Checked Fingerstick Blood Sugar Results: 134 Review of Systems - Cardiovascular Cardiovascular: absent: Chest Pain, Chest Pain at Rest, Chest Pain with Activity , Claudication, Diaphoresis - Respiratory Respiratory: absent: Cough, Dyspnea, Hemoptysis, Dyspnea on Exertion, Wheezing - Gastrointestinal Gastrointestinal: absent: Abdominal Pain, Hematemesis, Hematochezia, Vomiting Critical Care Progress Note - Nutrition Nutrition: Nutrition Category Date Time Status Heart Healthy Diet [DIET] Diets 05/03/17 Dinner Active Assessment/Plan (1) Upper GI hemorrhage Current Visit: Yes Status: Acute Comment: IVF Off octreotide and Protonix gtts Tolerating PO diet S/p EJD GI consult (2) Anemia Current Visit: No Status: Acute Priority: High Comment: No eviadance of active bleed at this time (3) Cirrhosis Current Visit: No Status: Acute (4) Alcohol abuse Current Visit: No Status: Chronic (5) Cirrhosis Current Visit: No Status: Chronic Priority: High (6) History of seizure Current Visit: No Status: Chronic (7) Liver cirrhosis, alcoholic Current Visit: No Status: Chronic Priority: High (8) Seizure Current Visit: No Status: Chronic Comment: Continue keppra 500 q12H
[2017-05-04 06:27] LABS: HEMATOCRIT 22.5 % (35.0-51.0); MEAN CELL VOLUME 102.1 fl (80.0-94.0); MEAN CORPUSCULAR HGB CONC 33.3 g/dL (33.0-37.0); RED CELL DISTRIBUTION WIDTH 13.8 % (11.5-14.5); WHITE BLOOD COUNT 3.4 K/uL (4.8-10.8)
[2017-05-04 06:34] LABS: ALB/GLOB RATIO 0.8 (1.0-2.1); ALKALINE PHOSPHATASE 162 U/L (38-126); ALT/SGPT 42 U/L (21-72); AST/SGOT 63 U/L (17-59); BILIRUBIN,TOTAL 3.7 mg/dl (0.2-1.3); BLOOD UREA NITROGEN 12 mg/dl (9-20); CALCIUM 7.3 mg/dL (8.4-10.2); CARBON DIOXIDE 23 mmol/L (22-30); CHLORIDE 110 mmol/L (98-107); GFR AFRICAN-AMERICAN > 60; GLUCOSE,RANDOM 120 mg/dL (75-110); POTASSIUM 3.1 MMOL/L (3.6-5.0); SODIUM 142 mmol/l (132-148); TOTAL PROTEIN 6.3 G/DL (6.3-8.2)
--- NOTE | 2017-05-04 08:24 | CP.PCM.PN ---
<Reyes Rangel - Last Filed: 05/04/17 10:32> Subjective - Date & Time of Evaluation Date of Evaluation: 05/04/17 Time of Evaluation: 07:00 - Subjective Subjective: PGY4 GI follow-up Pt seen and examined bedside Pt apparently had a melonic BM in the AM States he is fatigues Denies abd pain, nausea or vomiting 10-point ROS conducted, neg other than above Objective - Vital Signs/Intake and Output Vital Signs (last 24 hours): Temp Pulse Resp BP Pulse Ox 98 F 78 18 113/63 97 05/04/17 02:00 05/04/17 02:00 05/04/17 02:00 05/04/17 02:00 05/04/17 02:00 Intake and Output: 05/04/17 05/04/17 06:59 18:59 Intake Total 1140 Output Total 400 Balance 740 - Medications Medications: Current Medications Chlordiazepoxide (Librium) 50 mg PO Q6 PRN PRN Reason: Anxiety Sodium Chloride (Sodium Chloride 0.9%) 1,000 mls @ 80 mls/hr IV .[id number] [facility] Last Admin: 05/03/17 21:16 Dose: 80 mls/hr Levetiracetam 500 mg/ Sodium (Chloride) 105 mls @ 210 mls/hr IVPB Q12 [facility] Last Admin: 05/03/17 21:11 Dose: 210 mls/hr Nicotine (Nicoderm Cq) 1 patch TD DAILY [facility] Last Admin: 05/03/17 20:00 Dose: 1 patch Ondansetron HCl (Zofran Inj) 4 mg IVP Q6 PRN PRN Reason: Nausea/Vomiting Pantoprazole Sodium (Protonix Ec Tab) 40 mg PO ACB [facility] - Labs Labs: 05/04/17 05:45 05/04/17 05:45 PT 19.7 Seconds (9.8-13.1) H 05/04/17 05:45 INR 1.7 (0.9-1.2) H 05/04/17 05:45 APTT 34.3 Seconds (25.6-37.1) 05/02/17 09:30 - Constitutional Appears: Well, No Acute Distress - Head Exam Head Exam: ATRAUMATIC, NORMOCEPHALIC - Eye Exam Eye Exam: Normal appearance - ENT Exam ENT Exam: Mucous Membranes Moist, Normal Exam - Respiratory Exam Respiratory Exam: Clear to Ausculation Bilateral, NORMAL BREATHING PATTERN. absent: Rales, Rhonchi, Wheezes, Respiratory Distress - Cardiovascular Exam Cardiovascular Exam: REGULAR RHYTHM, +S1, +S2 - GI/Abdominal Exam GI & Abdominal Exam: Soft, Normal Bowel Sounds. absent: Guarding, Rigid, Tenderness, Organomegaly - Extremities Exam Extremities Exam: absent: Joint Swelling, Pedal Edema - Neurological Exam Neurological Exam: Alert, Awake, Oriented x3 - Psychiatric Exam Psychiatric exam: Normal Affect, Normal Mood - Skin Skin Exam: Dry, Intact, Normal Color, Warm Assessment and Plan - Assessment and Plan (Free Text) Assessment: Shreyas Sepulveda is a 52M w/ hx of decompensated cirrhosis 2/2 ETOH s/p TIPS, hx of ETOH abuse who presents with possible hematemesis and anemia. Pt continues to drop hgb and now can melena 1. Melena, s/p EGD on 05/03/17 which revealed hypertensive portal gastropathy 2. hypertensive portal gastropathy 3. Anemia 4. Decompensated liver cirrhosis 2/2 ETOH s/p TIPS 5. hx of ETOH abuse Plan: -s/p TIPS in 2014 -HGb sropped to ~7.5 today, and melena in the AM -keep NPO -will do a push endoscopy today with flex sig -2 units of PRBC on hold -Will give 1 unit platlets -consent in chart -maintain 2 large IV bore lines -continue PPI daily -x 3 water enemas -will give another dose of ceftriaxone 1g IV D/W Dr. Bradley <Kirk ADRIAN,[facility] - Last Filed: 05/04/17 17:18> Objective - Vital Signs/Intake and Output Vital Signs (last 24 hours): Temp Pulse Resp BP Pulse Ox 98.1 F 75 20 121/71 100 05/04/17 16:03 05/04/17 16:03 05/04/17 16:03 05/04/17 16:03 05/04/17 16:03 Intake and Output: 05/04/17 05/04/17 06:59 18:59 Intake Total 1140 150 Output Total 400 Balance 740 150 - Medications Medications: Current Medications Chlordiazepoxide (Librium) 50 mg PO Q6 PRN PRN Reason: Anxiety Levetiracetam 500 mg/ Sodium (Chloride) 105 mls @ 210 mls/hr IVPB Q12 [facility] Last Admin: 05/04/17 08:54 Dose: 210 mls/hr Metoclopramide HCl (Reglan) 10 mg IVP Q8 [facility] Last Admin: 05/04/17 16:36 Dose: Not Given Nicotine (Nicoderm Cq) 1 patch TD DAILY [facility] Last Admin: 05/04/17 08:54 Dose: 1 patch Ondansetron HCl (Zofran Inj) 4 mg IVP Q6 PRN PRN Reason: Nausea/Vomiting Pantoprazole Sodium (Protonix Inj) 40 mg IVP BID [facility] Last Admin: 05/04/17 16:34 Dose: 40 mg Potassium Chloride (Klor-Con 10) 10 meq PO DAILY [facility] - Labs Labs: 05/04/17 05:45 05/04/17 05:45 PT 19.7 Seconds (9.8-13.1) H 05/04/17 05:45 INR 1.7 (0.9-1.2) H 05/04/17 05:45 APTT 34.3 Seconds (25.6-37.1) 05/02/17 09:30 Attending/Attestation - Attestation I have personally seen and examined this patient.: Yes I have fully participated in the care of the patient.: Yes I have reviewed all pertinent clinical information, including history, physical exam and plan: Yes Notes (Text): 05/04/17 17:07 This is a 52 yr old M with history of decompensated cirrhosis 2/2 ETOH s/p TIPS , hx of ETOH abuse who presents with possible hematemesis and anemia, s/p EGD on 05/03/17 which revealed hypertensive portal gastropathy and Grade C esophagitis. He was started on clear liquid diet and PPI. This am he passed melanotic stool and dropped Hb. Repeat EGD today showed protrubent vessel at GEJ with recent stigmata of bleeding. Hemostasis was achieved with 3 cc of 1:10, 000 epinephrine and resolution clip placement and bipolar probe. No further bleeding noted at the end of the procedure. Trend Hb/Hct. Add reglan to the regimen to prevent vomiting. Clear liquid diet. Patient has a patent TIPS and hence does not have ascites or varices.
[2017-05-04] MEDS: levETIRAcetam 500 MG in Sodium Chloride 0.9% 100 ML IVPB SCH ×2 (08:54→21:49)
--- NOTE | 2017-05-04 09:00 | CP.PCM.PN ---
Subjective - Date & Time of Evaluation Date of Evaluation: 05/04/17 Time of Evaluation: 09:00 - Subjective Subjective: Patient seen and examined this morning at bedside, he is lying comfortable on bed, no acute overnight events, patient reports feeling fatigue this morning, but denies any nausea, vomiting, dizziness/lightheadedness, no chest or abdominal pain, palpitations, headache. Patient had a large dark stool this morning. No urinary symptoms. Objective - Vital Signs/Intake and Output Vital Signs (last 24 hours): Temp Pulse Resp BP Pulse Ox 98.2 F 84 18 109/54 L 99 05/04/17 08:34 05/04/17 08:34 05/04/17 08:34 05/04/17 08:34 05/04/17 08:34 Intake and Output: 05/04/17 05/04/17 06:59 18:59 Intake Total 1140 Output Total 400 Balance 740 - Medications Medications: Current Medications Chlordiazepoxide (Librium) 50 mg PO Q6 PRN PRN Reason: Anxiety Sodium Chloride (Sodium Chloride 0.9%) 1,000 mls @ 80 mls/hr IV .[id number] [facility] Last Admin: 05/03/17 21:16 Dose: 80 mls/hr Levetiracetam 500 mg/ Sodium (Chloride) 105 mls @ 210 mls/hr IVPB Q12 [facility] Last Admin: 05/04/17 08:54 Dose: 210 mls/hr Nicotine (Nicoderm Cq) 1 patch TD DAILY [facility] Last Admin: 05/04/17 08:54 Dose: 1 patch Ondansetron HCl (Zofran Inj) 4 mg IVP Q6 PRN PRN Reason: Nausea/Vomiting Pantoprazole Sodium (Protonix Ec Tab) 40 mg PO ACB [facility] - Labs Labs: 05/04/17 05:45 05/04/17 05:45 PT 19.7 Seconds (9.8-13.1) H 05/04/17 05:45 INR 1.7 (0.9-1.2) H 05/04/17 05:45 APTT 34.3 Seconds (25.6-37.1) 05/02/17 09:30 - Constitutional Appears: No Acute Distress - Head Exam Head Exam: NORMAL INSPECTION - Eye Exam Eye Exam: EOMI, PERRL - Respiratory Exam Respiratory Exam: Clear to Ausculation Bilateral, NORMAL BREATHING PATTERN. absent: Rhonchi, Wheezes - Cardiovascular Exam Cardiovascular Exam: REGULAR RHYTHM, +S1, +S2. absent: Tachycardia - GI/Abdominal Exam GI & Abdominal Exam: Soft, Normal Bowel Sounds. absent: Distended, Tenderness - Extremities Exam Extremities Exam: Normal Inspection. absent: Calf Tenderness - Neurological Exam Neurological Exam: Alert, Awake, Oriented x3 - Skin Skin Exam: Dry, Warm Assessment and Plan - Assessment and Plan (Free Text) Assessment: 52 y/o male with a PMHx remarkable for stage 4 liver cirrhosis secondary to ETOH Abuse, ETOH abuse, Chronic Pancytopenia, hepatic encephalopathy and seizures admitted for acute upper GI bleed. Plan: Acute GI Bleed: -Likely upper GI based on hx -patient had melanic stool this morning -NPO -NS @ 80 mls/hr -Zofran 4mg IVP Q6H PRN N/V -Discontinue octreotide and PPI drip -continue with Protonix 40mg PO daily -Fecal Occult blood: pending -S/P EGD yesterday that showed severe portal hypertensive gastropathy and no varices. Needs outpatient colonoscopy which is already scheduled for next month. -GI recommendations appreciated by Dr Bradley -Patient for repeat push endoscopy today with flex sig, f/u results Anemia, macrocytic -likely mixed secondary to GI bleed and Etoh abuse -Hgb/Htc 7.5/22.5 -PRBC 2 units on hold as per GI recommendations -monitor H/H Stage F4 Liver Cirrhosis secondary to ETOH abuse -MELD Score (2016): 20 pts -stable -INR 1.7 today -S/P 2 units of FFP -monitor vitals/labs ETOH abuse -monitor vitals for possible withdrawal -Librium 50mg PRN Chronic Pancytopenia -likely secondary to bone marrow suppression from Chronic ETOH abuse -Plt 41L today -Will give 1 unit of platelets as per GI recommendations -monitor Seizures -controlled, asymptomatic x4 years -c/w IV Keppra 500mg BID till diet is advanced DVT Prophylaxis: -SCDs -no anticoagulation due to GI bleeding and thrombocytopenia -INR 1.7
--- NOTE | 2017-05-04 09:02 | PQF GENQUE ---
Dr. Salvador Montaño, Etiology of the GI Bleed? if known after the work up is completed OR: Unable to determine 05/03 Endoscopy report: Moderate portal hypertensive gastropathy :stomach; diffuse mild inflammation characterized by erthyema in the entire stomach; bxs.taken 05/03 progress note: Acute GI Bleed: -Likely upper GI based on hx -patient denies melena or hematochezia -NPO diet -NS @ 80 mls/hr -Zofran 4mg IVP Q6H PRN N/V -c/w Octreotide 50mcg/hr -IV Protonix 40mg drip -Fecal Occult blood: pending -GI consult appreciated by Dr Bradley --Stage F4 Liver Cirrhosis secondary to ETOH abuse 05/03 GI consult; 52 yr old M w/ hx. of decompensated cirrhosis due to ETOH cirrhosis and GIB s/p TIPS, with continued alcohol dependance who presents with possible hematemesis and anemia. s/p EGD today that showed severe portal hypertensive gastropathy and no varices. can start regular low salt diet. Needs outpatient colonoscopy which is already scheduled. Discontinue octreotide and PPI gtt H/H: 9.1/27.3->7.5/22.5 FFP: 05/03/17 This form is a permanent part of the medical record Clarification of your documentation is requested to better reflect the severity of illness and intensity of treatment of your patient. Indicators present [] Specify: [] [] Specify: [] [] Specify: [] [] Specify: [] Location in the medical record that reflects the above clinical findings: [] Treatment Provided: [] PHYSICIAN'S RESPONSE Based on your medical judgment of the clinical indicators outlined above please clarify the following: [] Practitioner response [] If unable to determine, please check the box, sign and date. Present On Admission (POA) Indicator: [] Present at the time of admission [] Not present at the time of admission [] Clinically Undetermined In responding to this query, please exercise your independent professional judgment. The fact that a question is asked does not imply that any particular answer is desired or expected. Thank you for your clarification on this documentation. If you have any questions please call. * Thank you, Ghazal Rios RN ext. #[phone] MTDD
[2017-05-04] MEDS ORDERED: Sodium Chloride 0.9% 1,000 ML IV SCH (09:15)
[2017-05-04] MEDS ORDERED: Lactated Ringer's 1,000 ML IV ONE (12:25)
[2017-05-04] MEDS ORDERED: Etomidate 20 mg/10ml Inj IV ONE ×2 (13:01→13:25)
[2017-05-04] MEDS ORDERED: Lidocaine 2% MPF (5 ml) Inj ONE (13:02)
[2017-05-04] MEDS ORDERED: Propofol 10 mg/ml Inj (20 ML) ONE (13:02)
[2017-05-04] MEDS ORDERED: EPINEPHrine 1 mg/ml (1:1000) Inj ONE (13:03)
[2017-05-04] MEDS ORDERED: ePHEDrine 50 mg/ml Inj ONE (13:26)
[2017-05-04] MEDS ORDERED: Potassium Chloride 20 mEq/15 ml LIQ UD PO ONE (15:17)
[2017-05-05] MEDS ORDERED: Pantoprazole 40 mg EC Tab PO SCH (07:30)
[2017-05-05 07:51] LABS: BLOOD UREA NITROGEN 7 mg/dl (9-20); CALCIUM 7.6 mg/dL (8.4-10.2); CARBON DIOXIDE 23 mmol/L (22-30); CHLORIDE 111 mmol/L (98-107); GFR AFRICAN-AMERICAN > 60; GLUCOSE,RANDOM 100 mg/dL (75-110); POTASSIUM 2.9 MMOL/L (3.6-5.0); SODIUM 142 mmol/l (132-148)
[2017-05-05 07:52] LABS: HEMATOCRIT 22.5 % (35.0-51.0); MEAN CELL VOLUME 101.2 fl (80.0-94.0); MEAN CORPUSCULAR HEMOGLOBIN 34.9 pg (27.0-31.0); MEAN CORPUSCULAR HGB CONC 34.5 g/dL (33.0-37.0); RED CELL DISTRIBUTION WIDTH 13.7 % (11.5-14.5)
[2017-05-05] MEDS: levETIRAcetam 500 MG in Sodium Chloride 0.9% 100 ML IVPB SCH (08:54)
[2017-05-05] MEDS ORDERED: Potassium Chloride 10 mEq ER Tab PO SCH (09:00)
--- NOTE | 2017-05-05 11:10 | CP.PCM.PN ---
<Reyes Rangel - Last Filed: 05/05/17 11:16> Subjective - Date & Time of Evaluation Date of Evaluation: 05/05/17 Time of Evaluation: 07:00 - Subjective Subjective: PGY4 GI follow-up Pt seen and examined bedside denies any melonic BM, BRBPR, or hematemesis States he is fatigues Denies abd pain, nausea or vomiting 10-point ROS conducted, neg other than above Objective - Vital Signs/Intake and Output Vital Signs (last 24 hours): Temp Pulse Resp BP Pulse Ox 98.4 F 87 20 113/63 99 05/05/17 07:37 05/05/17 07:37 05/05/17 07:37 05/05/17 07:37 05/05/17 07:37 - Medications Medications: Current Medications Chlordiazepoxide (Librium) 50 mg PO Q6 PRN PRN Reason: Anxiety Last Admin: 05/04/17 21:49 Dose: 50 mg Levetiracetam 500 mg/ Sodium (Chloride) 105 mls @ 210 mls/hr IVPB Q12 [facility] Last Admin: 05/05/17 08:54 Dose: 210 mls/hr Potassium Chloride 10 meq/ (Sodium Chloride) 55 mls @ 55 mls/hr IV Q1 JANNIE Metoclopramide HCl (Reglan) 10 mg IVP Q8 [facility] Last Admin: 05/05/17 09:00 Dose: 10 mg Nicotine (Nicoderm Cq) 1 patch TD DAILY [facility] Last Admin: 05/05/17 08:56 Dose: 1 patch Ondansetron HCl (Zofran Inj) 4 mg IVP Q6 PRN PRN Reason: Nausea/Vomiting Pantoprazole Sodium (Protonix Inj) 40 mg IVP BID [facility] Last Admin: 05/05/17 08:57 Dose: 40 mg Potassium Chloride (Klor-Con 10) 10 meq PO DAILY [facility] - Labs Labs: 05/05/17 05:40 05/05/17 05:40 PT 22.8 Seconds (9.8-13.1) H 05/05/17 06:20 INR 2.0 (0.9-1.2) H 05/05/17 06:20 APTT 34.3 Seconds (25.6-37.1) 05/02/17 09:30 - Constitutional Appears: Well, No Acute Distress - Head Exam Head Exam: ATRAUMATIC, NORMOCEPHALIC - Eye Exam Eye Exam: Normal appearance - ENT Exam ENT Exam: Mucous Membranes Moist - Respiratory Exam Respiratory Exam: Clear to Ausculation Bilateral, NORMAL BREATHING PATTERN. absent: Rales, Rhonchi, Wheezes, Respiratory Distress - Cardiovascular Exam Cardiovascular Exam: REGULAR RHYTHM, +S1, +S2 - GI/Abdominal Exam GI & Abdominal Exam: Distended, Soft, Normal Bowel Sounds. absent: Rigid, Tenderness, Organomegaly - Extremities Exam Extremities Exam: absent: Joint Swelling, Pedal Edema - Neurological Exam Neurological Exam: Alert, Awake, Oriented x3 - Psychiatric Exam Psychiatric exam: Normal Affect, Normal Mood - Skin Skin Exam: Dry, Intact, Normal Color, Warm Assessment and Plan - Assessment and Plan (Free Text) Assessment: Shreyas Sepulveda is a 52M w/ hx of decompensated cirrhosis 2/2 ETOH s/p TIPS, hx of ETOH abuse who presents with possible hematemesis and anemia. Pt continues to drop hgb and now can melena 1. Ulcer with visible vessel at GE junction s/p clip x1, epinephrine, and gold probe 2. hypertensive portal gastropathy 3. Anemia 4. Decompensated liver cirrhosis 2/2 ETOH s/p TIPS 5. hx of ETOH abuse Plan: -hgb stable at 7.8 -No reports of GI bleed overnight -recommend pt continue PPI BID -avoid alcohol use -follow-up with Dr. Bradley as an outpt -will need to eventually follow up at [facility] -continue lactulose 20g daily as oupt -recommend low salt high protein diet -okay to d/c from GI standpoint D/W Dr. Bradley <Gage Bradley MD - Last Filed: 05/05/17 16:16> Objective - Vital Signs/Intake and Output Vital Signs (last 24 hours): Temp Pulse Resp BP Pulse Ox 98.4 F 87 20 113/63 99 05/05/17 07:37 05/05/17 07:37 05/05/17 07:37 05/05/17 07:37 05/05/17 07:37 - Medications Medications: Current Medications Chlordiazepoxide (Librium) 50 mg PO Q6 PRN PRN Reason: Anxiety Last Admin: 05/04/17 21:49 Dose: 50 mg Levetiracetam 500 mg/ Sodium (Chloride) 105 mls @ 210 mls/hr IVPB Q12 [facility] Last Admin: 05/05/17 08:54 Dose: 210 mls/hr Metoclopramide HCl (Reglan) 10 mg IVP Q8 [facility] Last Admin: 05/05/17 09:00 Dose: 10 mg Nicotine (Nicoderm Cq) 1 patch TD DAILY [facility] Last Admin: 05/05/17 08:56 Dose: 1 patch Ondansetron HCl (Zofran Inj) 4 mg IVP Q6 PRN PRN Reason: Nausea/Vomiting Pantoprazole Sodium (Protonix Inj) 40 mg IVP BID [facility] Last Admin: 05/05/17 08:57 Dose: 40 mg Potassium Chloride (Klor-Con 10) 10 meq PO DAILY [facility] Last Admin: 05/05/17 12:10 Dose: 10 meq - Labs Labs: 05/05/17 05:40 05/05/17 05:40 PT 22.8 Seconds (9.8-13.1) H 05/05/17 06:20 INR 2.0 (0.9-1.2) H 05/05/17 06:20 APTT 34.3 Seconds (25.6-37.1) 05/02/17 09:30 Attending/Attestation - Attestation I have personally seen and examined this patient.: Yes I have fully participated in the care of the patient.: Yes I have reviewed all pertinent clinical information, including history, physical exam and plan: Yes Notes (Text): 05/05/17 16:14 This is a 52 yr old M with history of decompensated cirrhosis 2/2 ETOH s/p TIPS , hx of ETOH abuse who presents with possible hematemesis and anemia, s/p EGD on 05/03/17 which revealed hypertensive portal gastropathy and Grade C esophagitis. He was started on clear liquid diet and PPI. Yesterady he had melanotic stool and dropped Hb. Repeat EGD yesterday showed protrubent vessel at GEJ with recent stigmata of bleeding. Hemostasis was achieved with 3 cc of 1: 10,000 epinephrine and resolution clip placement and bipolar probe. No further bleeding noted at the end of the procedure. Hb/Hct stable. Advance diet. Can be discharged on PPI. Alcohol cessation. Has outpatient follow up for colonoscopy in two weeks. Patient has a patent TIPS and hence does not have ascites or varices.
[2017-05-05 16:18] VITALS: BP 111/63; PULSE 86; RESP 18; TEMP 97.9; O2SAT 98
[2017-05-05 16:46] LABS: BLOOD UREA NITROGEN 7 mg/dl (9-20); CALCIUM 7.5 mg/dL (8.4-10.2); CARBON DIOXIDE 23 mmol/L (22-30); CHLORIDE 112 mmol/L (98-107); GFR AFRICAN-AMERICAN > 60; GLUCOSE,RANDOM 105 mg/dL (75-110); POTASSIUM 3.4 MMOL/L (3.6-5.0); SODIUM 141 mmol/l (132-148)
--- NOTE | 2017-05-05 17:05 | CP.PCM.DIS ---
Provider - Provider Date of Admission: 05/02/17 12:23 Attending physician: Chanelle Rowe MD Consults: GI Dr Bradley Time Spent in preparation of Discharge (in minutes): 30 Diagnosis - Discharge Diagnosis (1) Upper GI hemorrhage Status: Acute (2) Anemia Status: Acute (3) Pancytopenia Status: Chronic Hospital Course - Lab Results Lab Results: Micro Results 05/04/17 06:45 Naris MRSA Culture (Admit) - Final MRSA NOT DETECTED 05/02/17 16:00 Nose MRSA Culture (Admit) - Final MRSA NOT DETECTED Most Recent Lab Values WBC 3.0 K/uL (4.8-10.8) L 05/05/17 05:40 RBC 2.22 Mil/uL (4.40-5.90) L 05/05/17 05:40 Hgb 7.8 g/dL (12.0-18.0) L 05/05/17 05:40 Hct 22.5 % (35.0-51.0) L 05/05/17 05:40 MCV 101.2 fl (80.0-94.0) H 05/05/17 05:40 MCH 34.9 pg (27.0-31.0) H 05/05/17 05:40 MCHC 34.5 g/dL (33.0-37.0) 05/05/17 05:40 RDW 13.7 % (11.5-14.5) 05/05/17 05:40 Plt Count 46 K/uL (130-400) L 05/05/17 05:40 MPV 8.0 fl (7.2-11.7) 05/02/17 09:30 Neut % (Auto) 62.7 % (50.0-75.0) 05/02/17 09:30 Lymph % (Auto) 15.3 % (20.0-40.0) L 05/02/17 09:30 [place] % (Auto) 14.0 % (0.0-10.0) H 05/02/17 09:30 Eos % (Auto) 6.2 % (0.0-4.0) H 05/02/17 09:30 Baso % (Auto) 1.8 % (0.0-2.0) 05/02/17 09:30 Neut # 2.9 K/uL (1.8-7.0) 05/02/17 09:30 Lymph # 0.7 K/uL (1.0-4.3) L 05/02/17 09:30 [place] # 0.6 K/uL (0.0-0.8) 05/02/17 09:30 Eos # 0.3 K/uL (0.0-0.7) 05/02/17 09:30 Baso # 0.1 K/uL (0.0-0.2) 05/02/17 09:30 Retic Count 2.0 % (0.5-1.5) H D 05/02/17 15:00 PT 22.8 Seconds (9.8-13.1) H 05/05/17 06:20 INR 2.0 (0.9-1.2) H 05/05/17 06:20 APTT 34.3 Seconds (25.6-37.1) 05/02/17 09:30 Sodium 141 mmol/l (132-148) 05/05/17 16:31 Potassium 3.4 MMOL/L (3.6-5.0) L 05/05/17 16:31 Chloride 112 mmol/L (98-107) H 05/05/17 16:31 Carbon Dioxide 23 mmol/L (22-30) 05/05/17 16:31 Anion Gap 9 (10-20) L 05/05/17 16:31 BUN 7 mg/dl (9-20) L 05/05/17 16:31 Creatinine 0.7 mg/dl (0.8-1.5) L 05/05/17 16:31 Est GFR ( Amer) > 60 05/05/17 16:31 Est GFR (Non-Af Amer) > 60 05/05/17 16:31 POC Glucose (mg/dL) 89 mg/dL (65-110) 05/03/17 22:00 Random Glucose 105 mg/dL (75-110) 05/05/17 16:31 Calcium 7.5 mg/dL (8.4-10.2) L 05/05/17 16:31 Iron 189 ug/dL (49-181) H 05/02/17 15:00 TIBC 237 ug/dL (250-450) L 05/02/17 15:00 % Saturation 80 % (20-55) H 05/02/17 15:00 Ferritin 277.0 ng/Ml (17.9-464) 05/02/17 17:30 Total Bilirubin 3.7 mg/dl (0.2-1.3) H 05/04/17 05:45 AST 63 U/L (17-59) H 05/04/17 05:45 ALT 42 U/L (21-72) 05/04/17 05:45 Alkaline Phosphatase 162 U/L (38-126) H 05/04/17 05:45 Total Protein 6.3 G/DL (6.3-8.2) 05/04/17 05:45 Albumin 2.7 g/dL (3.5-5.0) L 05/04/17 05:45 Globulin 3.5 gm/dL (2.2-3.9) 05/04/17 05:45 Albumin/Globulin Ratio 0.8 (1.0-2.1) L 05/04/17 05:45 Lipase 212 U/L (23-300) 05/02/17 09:30 Stool Occult Blood Positive (NEGATIVE) H 05/04/17 10:08 Alcohol, Quantitative < 10 mg/dl (0-10) 05/02/17 13:29 Blood Type O POSITIVE 05/02/17 09:30 Antibody Screen Positive 05/02/17 09:30 Antibody Identification Anti Radha 05/02/17 09:30 Crossmatch See Detail 05/02/17 09:30 BBK History Checked Patient has bt 05/02/17 09:30 - Hospital Course Hospital Course: 52 y/o male with a PMHx of seizures, ETOH Abuse, pancytopenia, Stage F4 Liver cirrhosis secondary to ETOH abuse is admitted for Upper GI bleeding. Patient was followed by GI throughout admission, underwent to EGD x2 that showed severe portal hypertensive gastropathy and protrubent vessel at GEJ with stigmata of bleeding, no varices. Patient received 2 units of FFP and 1 unit of platelet, RBC was holded as per GI recommendations. Patient asymptomatic and stable at discharge time. Patient was discharged home with clearance and follow up instructions/visits in two weeks with Dr Bradley for scheduled colonoscopy. Home medications: Omeprazol 40 mg PO BID Potassium Chloride 20 meq PO daily. Discharge Exam - Head Exam Head Exam: NORMAL INSPECTION - Eye Exam Eye Exam: EOMI, PERRL - ENT Exam ENT Exam: Mucous Membranes Moist - Respiratory Exam Respiratory Exam: Clear to PA & Lateral, NORMAL BREATHING PATTERN - Cardiovascular Exam Cardiovascular Exam: REGULAR RHYTHM, +S1, +S2. absent: Tachycardia - GI/Abdominal Exam GI & Abdominal Exam: Normal Bowel Sounds, Soft. absent: Tenderness - Extremities Exam Extremities exam: normal inspection - Neurological Exam Neurological exam: Alert, CN II-XII Intact, Oriented x3 - Psychiatric Exam Psychiatric exam: Normal Affect - Skin Skin Exam: Dry, Warm Discharge Plan - Discharge Medications Prescriptions: Omeprazole Magnesium [Prilosec Otc] 40 mg PO BID 30 Days #60 tablet. Potassium Chloride 20 meq PO DAILY 5 Days #5 tab.er.prt - Follow Up Plan Condition: GUARDED Disposition: HOME/ ROUTINE Patient education suggested?: Yes Instructions: Gastrointestinal Bleeding (DC), Cirrhosis (DC), Abuse of Alcohol (DC) Additional Instructions: F/U with PCP in 2-3 days F/U with GI Dr Bradley in two weeks for scheduled colonoscopy CBC and BMP in 3 days to follow up Anemia and Hypokalemia ER precautions given Referrals: Kirk ADRIAN,MD Gage [Medical Doctor] -
== END 2017-05-05 17:59 | disposition home or self-care (01) | DRG 552 ==
LOC: H.ER 08:13 → H.ERHOLD 12:23 → H.ICU/CCU 13:47 → H.MEDSURG1 05-04 01:17
PROVIDERS: ADMIT Family Medicine Geriatric Medicine; ATTEND Family Medicine Geriatric Medicine
PROC: 6A550Z2 Pheresis of Platelets, Single (ICD-10-PCS; 2017-05-03)
PROC: 0DB48ZX Excision of Esophagogastric Junction, Via Natural or Artificial Opening Endoscopic, Diagnostic (ICD-10-PCS; 2017-05-03)
PROC: 0DB68ZX Excision of Stomach, Via Natural or Artificial Opening Endoscopic, Diagnostic (ICD-10-PCS; 2017-05-03)
PROC: 30233K1 Transfusion of Nonautologous Frozen Plasma into Peripheral Vein, Percutaneous Approach (ICD-10-PCS; principal; 2017-05-03 12:15)
PROC: 3E0G8GC Introduction of Other Therapeutic Substance into Upper GI, Via Natural or Artificial Opening Endoscopic (ICD-10-PCS; 2017-05-04)
PROC: 0W3P8ZZ Control Bleeding in Gastrointestinal Tract, Via Natural or Artificial Opening Endoscopic (ICD-10-PCS; 2017-05-04)
DX: K92.0 Hematemesis (principal); R57.8 Other shock; K70.30 Alcoholic cirrhosis of liver without ascites; D61.818 Other pancytopenia; K76.6 Portal hypertension; G40.909 Epilepsy, unspecified, not intractable, without status epilepticus; F17.210 Nicotine dependence, cigarettes, uncomplicated; F10.10 Alcohol abuse, uncomplicated; Y90.0 Blood alcohol level of less than 20 mg/100 ml; K31.89 Other diseases of stomach and duodenum; D62 Acute posthemorrhagic anemia; K29.70 Gastritis, unspecified, without bleeding; K20.9 Esophagitis, unspecified; K22.8 Other specified diseases of esophagus

== ENCOUNTER 2017-05-10 11:58 | Inpatient (IN) | payer MEDICAID ==
[2017-05-10] MEDS ORDERED: Sodium Chloride 0.9% 1,000 ML IV STA ×2 (13:14→14:06)
--- NOTE | 2017-05-10 13:21 | ED PDOC ---
HPI: Altered Mental Status Time Seen by Provider: 05/10/17 12:03 Chief Complaint (Nursing): Weakness/Neurological Deficit Chief Complaint (Provider): Coufused and lethargic History Per: Patient History/Exam Limitations: None Onset/Duration Of Symptoms: Days (1) Current Symptoms Are (Timing): Still Present Additional Complaint(s): 52yo male with past medical history of cirrhosis, presents to ED with complaints of confusion and lethargy, since yesterday. patient denies any headache, dizziness, abdominal pain, vomiting, diarrhea. No other complaints. Past Medical History Reviewed: Historical Data, Nursing Documentation, Vital Signs Vital Signs: Last Vital Signs Temp 97 F L 05/10/17 12:03 Pulse 94 H 05/10/17 12:03 Resp 18 05/10/17 12:03 BP 126/79 05/10/17 12:03 Pulse Ox 99 05/10/17 12:03 - Medical History PMH: Anemia, Back Problems (herniated disc), Fractures (left shoulder, Left hand 5th digit), Gastritis, Seizures (last 01/11/17), Chronic Pain (left shoulder ) Denies: HTN (Denies as per patient), Migraine, Pancreatitis (patient denies) , Parkinson's Disease, Chronic Kidney Disease - Surgical History Surgical History: Endoscopy - Family History Family History: States: No Known Family Hx, Unknown Family Hx - Home Medications Home Medications: Ambulatory Orders Medication Instructions Recorded levETIRAcetam [Keppra] 500 mg PO BID 10/16/16 Folic Acid 1 mg PO DAILY #30 tab 01/28/17 Omeprazole Magnesium [Prilosec Otc] 40 mg PO BID 30 Days #60 tablet. 05/05/17 Potassium Chloride 20 meq PO DAILY 5 Days #5 05/05/17 tab.er.prt - Allergies Allergies/Adverse Reactions: Allergies Allergy/AdvReac Type Severity Reaction Status Date / Time aspirin Allergy NAUSEA Verified 11/07/16 15:22 Review of Systems ROS Statement: Except As Marked, All Systems Reviewed And Found Negative Constitutional: Negative for: Fever Gastrointestinal: Negative for: Vomiting, Abdominal Pain, Diarrhea Neurological: Positive for: Confusion, Other (lethargic). Negative for: Headache, Dizziness Physical Exam - Reviewed Nursing Documentation Reviewed: Yes Vital Signs Reviewed: Yes - Physical Exam Appears: Positive for: No Acute Distress Head Exam: Positive for: ATRAUMATIC, NORMAL INSPECTION, NORMOCEPHALIC Skin: Positive for: Pallor (sallow appearing) Eye Exam: Positive for: Scleral icterus ENT: Positive for: Other (dry mucus membranes) Neck: Positive for: Supple Cardiovascular/Chest: Positive for: Regular Rate, Rhythm. Negative for: Murmur Respiratory: Positive for: Normal Breath Sounds. Negative for: Respiratory Distress Gastrointestinal/Abdominal: Positive for: Normal Exam, Soft. Negative for: Tenderness Extremity: Positive for: Normal ROM. Negative for: Deformity Neurologic/Psych: Positive for: Alert, Oriented (x2). Negative for: Motor/ Sensory Deficits - Laboratory Results Result Diagrams: 05/10/17 13:45 05/10/17 13:45 - ECG O2 Sat by Pulse Oximetry: 99 (RA) Pulse Ox Interpretation: Normal Medical Decision Making Medical Decision Making: Time: 1310 Impression: Confusion and lethargy x 2 days Plan: -- CT Head -- EKG -- Labs -- IV Fluids Reassess Scribe Attestation: Documented by Kajal Chakraborty acting as a scribe for Jonathan Sousa MD. Provider Attestation: All medical record entries made by the Scribe were at my direction and personally dictated by me. I have reviewed the chart and agree that the record accurately reflects my personal performance of the history, physical exam, medical decision making, and the department course for this patient. I have also personally directed, reviewed, and agree with the discharge instructions and disposition. Disposition - Clinical Impression Clinical Impression: Hepatic encephalopathy - Patient ED Disposition Is Patient to be Admitted: Yes - Disposition Disposition Time: 14:18 Condition: FAIR Forms: [employer] ([place]ian) - Pt Status Changed To: Hospital Disposition Of: Inpatient - Admit Certification Admit to Inpatient:: After my assessment, the patient will require hospitalization for at least two midnights. This is because of the severity of symptoms shown, intensity of services needed, and/or the medical risk in this patient being treated as an outpatient. - POA Present On Arrival: None
[2017-05-10 13:52] LABS: BASO # 0.1 K/uL (0.0-0.2); BASO % 1.7 % (0.0-2.0); EOS # 0.3 K/uL (0.0-0.7); EOS % 9.2 % (0.0-4.0); HEMATOCRIT 32.1 % (35.0-51.0); LYMPH # 0.9 K/uL (1.0-4.3); LYMPH % 25.4 % (20.0-40.0); MEAN CORPUSCULAR HEMOGLOBIN 34.4 pg (27.0-31.0); MEAN CORPUSCULAR HGB CONC 33.4 g/dL (33.0-37.0); MEAN PLATELET VOLUME 7.8 fl (7.2-11.7); MONO # 0.5 K/uL (0.0-0.8); MONO % 13.8 % (0.0-10.0); NEUT # 1.8 K/uL (1.8-7.0); NEUT % 49.9 % (50.0-75.0); NRBC % 0.2 % (0.0-0.0); RED CELL DISTRIBUTION WIDTH 14.6 % (11.5-14.5); WHITE BLOOD COUNT 3.5 K/uL (4.8-10.8)
[2017-05-10 13:54] LABS: VENOUS BLOOD GAS BASE EXCESS -3.7 mmol/L (0.0-2.0); VENOUS BLOOD GAS PCO2 34 mmHg (40-60); VENOUS BLOOD PH 7.39 (7.32-7.43)
[2017-05-10 14:03] LABS: ALB/GLOB RATIO 0.8 (1.0-2.1); ALCOHOL SERUM < 10 mg/dl (0-10); ALKALINE PHOSPHATASE 162 U/L (38-126); ALT/SGPT 54 U/L (21-72); AST/SGOT 75 U/L (17-59); BILIRUBIN,TOTAL 3.6 mg/dl (0.2-1.3); BLOOD UREA NITROGEN 12 mg/dl (9-20); CALCIUM 8.3 mg/dL (8.4-10.2); CARBON DIOXIDE 19 mmol/L (22-30); CHLORIDE 112 mmol/L (98-107); GFR AFRICAN-AMERICAN > 60; GLUCOSE,RANDOM 191 mg/dL (75-110); SODIUM 143 mmol/l (132-148); TOTAL PROTEIN 7.8 G/DL (6.3-8.2)
--- NOTE | 2017-05-10 14:54 | CT ---
PROCEDURE: CT HEAD WITHOUT CONTRAST. HISTORY: r/o bleed COMPARISON: Comparison made with prior CT scan of the brain dated 10/16/2016. TECHNIQUE: Axial computed tomography images were obtained through the head/brain without intravenous contrast. Note the examination is is somewhat by motion artifact. Radiation dose: Total exam DLP = 837.26 mGy-cm. This CT exam was performed using one or more of the following dose reduction techniques: Automated exposure control, adjustment of the mA and/or kV according to patient size, and/or use of iterative reconstruction technique. FINDINGS: HEMORRHAGE: No acute parenchymal, subarachnoid nor extra-axial hemorrhage. BRAIN: Mild - moderate diffuse/confluent chronic white matter ischemic changes seen extending peripherally into the deep and subcortical white matter both cerebral hemispheres. Moderate central volume loss Very minor vascular calcifications both carotid siphons VENTRICLES: No obstructive hydrocephalus. CALVARIUM: There are no acute calvarial fractures. PARANASAL SINUSES: Minimal mucosal thickening within a few ethmoid air cells. . MASTOID AIR CELLS: There is opacification of a few inferior right-sided and multiple inferior left-sided mastoid air cells. OTHER FINDINGS: None. IMPRESSION: Limited motion degraded study. No acute intracranial hemorrhage is. Mild to moderate chronic white matter ischemic changes. Moderate central volume loss.
--- NOTE | 2017-05-10 14:57 | CP.PCM.HP ---
History of Present Illness - History of Present Illness History of Present Illness: 52 yo male w/ pmhx of hepatic encephalopathy, stage F4 Liver cirrhosis secondary to ETOH abuse, pancytopenia and seizure disorder presents to [facility] ED c/o feeling dizzy since this morning associated with lethargy and unsteady gait for last 2 days. Pt reports he has been feeling woozy and he was not feeling himself since last night. Denies fall, head injury or LOC. Denies nausea, vomiting, abdominal pain, bloating, constipation, melena or hematochezia. Denie cough, chest pain, dyspnea, fever, chills or symptoms. Pt was seen by Dr. Bradley on 04/30/17 and prescribed lactulose 20 gm daily but pt reports he did not take the medication. PMD: [facility]. Last seen by Dr Rodney on 04/27/[address] Bradley on 04/30/2017 PMH: stage F4 liver cirrhosis, hepatic encephalopathy, ETOH abuse (last drinks 2 months ago), seizure on keppra (last seizure approx 4 years ago) Medications: Keppra 500mg PO BID, Folic acid, Thiamine, lactulose 20 gm daily and omeprazole 40 mg PO BID. Allergies: aspirin Past surgery Hx: right hand surgery, TIPS in 2014 Past Hospitalization Hx: multiple ED visits for ETOH abuse, Hepatic Encelopathy Social Hx: 7 cigarettes per day since 15, ETOH abuse, and denies illicit drug use -lives in [place] with roommate -Contact info sister Missy given: [phone] Family Hx: Father NE, mother breast cancer, siblings alive, sister diagnosed with colon cancer at age 59 ED Course: Initial vitals: BP 126/79, pulse 94, RR 18, temp 97.0F, pulse ox 99% CBC: 3.5/10.7/32.1/99 CMP: 143/4.0/112/19/12/0.8/191 Ammonia level: 108 CT of head: negative for acute intracranial hemorrhage. EKG: NSR, no acute changes. Received 30 mg laculose in ED. Present on Admission - Present on Admission Any Indicators Present on Admission: Yes Review of Systems - Constitutional Constitutional: Lethargy. absent: Headache - EENT Eyes: absent: Blurred Vision Ears: absent: Tinnitus Nose/Mouth/Throat: absent: Epistaxis, Bleeding Gums - Cardiovascular Cardiovascular: absent: Chest Pain, Diaphoresis, Dyspnea, Palpitations - Respiratory Respiratory: absent: Cough, Dyspnea, Dyspnea on Exertion - Gastrointestinal Gastrointestinal: absent: Abdominal Pain, Coffee Ground Emesis, Constipation, Hematemesis, Hematochezia, Melena, Nausea, Vomiting - Genitourinary Genitourinary: absent: Hematuria - Musculoskeletal Musculoskeletal: absent: Tingling - Integumentary Integumentary: absent: Rash, Skin Ulcer, Striae - Neurological Neurological: Dizziness, Tremor. absent: Convulsions, Headaches, Loss of Vision - Psychiatric Psychiatric: absent: Hallucinations - Hematologic/Lymphatic Hematologic: absent: Easy Bleeding, Easy Bruising Past Patient History - Infectious Disease Hx of Infectious Diseases: None - Tetanus Immunizations Tetanus Immunization: Unknown - Past Medical History & Family History Past Medical History?: Yes - Past Social History Smoking Status: Current Some Days Smoker - CARDIAC Hx Hypertension: No (Denies as per patient) - PULMONARY Hx Respiratory Disorders: No - NEUROLOGICAL Hx Migraine: No Hx Parkinson's Disease: No Hx Seizures: Yes (last 01/11/17) - HEENT Hx HEENT Problems: No - RENAL Hx Chronic Kidney Disease: No - ENDOCRINE/METABOLIC Hx Endocrine Disorders: No Hx Diabetes Mellitus Type 2: No - HEMATOLOGICAL/ONCOLOGICAL Hx Anemia: Yes - INTEGUMENTARY Hx Dermatological Problems: No - MUSCULOSKELETAL/RHEUMATOLOGICAL Hx Fractures: Yes (left shoulder, Left hand 5th digit) - GASTROINTESTINAL Hx Gastritis: Yes Hx Pancreatitis: No (patient denies) - PSYCHIATRIC Hx Psychophysiologic Disorder: No Hx Substance Use: No - SURGICAL HISTORY Hx Surgeries: Yes Other/Comment: stent for liver - ANESTHESIA Hx Anesthesia: Yes Hx Anesthesia Reactions: No Meds Allergies/Adverse Reactions: Allergies Allergy/AdvReac Type Severity Reaction Status Date / Time aspirin Allergy NAUSEA Verified 11/07/16 15:22 Physical Exam - Constitutional Appears: No Acute Distress, Other Additional comments: appears lethargic and slow to respond - Head Exam Head Exam: ATRAUMATIC, NORMAL INSPECTION, NORMOCEPHALIC - Eye Exam Eye Exam: EOMI, PERRL, Scleral icterus. absent: Nystagmus - ENT Exam ENT Exam: Mucous Membranes Dry - Neck Exam Neck exam: Positive for: Full Rom, Normal Inspection - Respiratory Exam Respiratory Exam: Clear to Auscultation Bilateral. absent: Rales, Rhonchi, Wheezes, Respiratory Distress - Cardiovascular Exam Cardiovascular Exam: REGULAR RHYTHM, RRR, +S1, +S2. absent: Gallop - GI/Abdominal Exam GI & Abdominal Exam: Normal Bowel Sounds, Soft. absent: Guarding, Organomegaly , Rebound, Tenderness Additional comments: asterixis - Extremities Exam Extremities exam: Positive for: normal capillary refill, normal inspection, pedal pulses present. Negative for: calf tenderness, pedal edema - Neurological Exam Neurological exam: Oriented x3, Reflexes Normal Additional comments: Altered level of consciousness, slow to respond questions - Psychiatric Exam Psychiatric exam: Normal Affect, Normal Mood - Skin Skin Exam: Dry, Pallor Results - Vital Signs Recent Vital Signs: Last Vital Signs Temp 97 F L 05/10/17 12:03 Pulse 86 05/10/17 14:24 Resp 18 05/10/17 14:24 BP 125/73 05/10/17 14:24 Pulse Ox 100 05/10/17 14:24 - Labs Result Diagrams: 05/10/17 13:45 05/10/17 13:45 Labs: Laboratory Results - last 24 hr 05/10/17 05/10/17 05/10/17 13:14 13:45 13:45 WBC 3.5 L RBC 3.12 L Hgb 10.7 L D Hct 32.1 L MCV 103.0 H MCH 34.4 H MCHC 33.4 RDW 14.6 H Plt Count 99 L D MPV 7.8 Neut % (Auto) 49.9 L Lymph % (Auto) 25.4 [place] % (Auto) 13.8 H Eos % (Auto) 9.2 H Baso % (Auto) 1.7 Neut # 1.8 Lymph # 0.9 L [place] # 0.5 Eos # 0.3 Baso # 0.1 pO2 31 VBG pH 7.39 VBG pCO2 34 L VBG HCO3 21.2 VBG Total CO2 21.6 L VBG O2 Sat (Calc) 62.8 VBG Base Excess -3.7 L VBG Potassium 4.0 Sodium 141.0 143 Chloride 112.0 H 112 H Glucose 205 H Lactate 2.8 H FiO2 21.0 Potassium 4.0 Carbon Dioxide 19 L Anion Gap 16 BUN 12 Creatinine 0.8 Est GFR ( Amer) > 60 Est GFR (Non-Af Amer) > 60 Random Glucose 191 H Calcium 8.3 L Total Bilirubin 3.6 H AST 75 H ALT 54 Alkaline Phosphatase 162 H Ammonia Total Protein 7.8 Albumin 3.4 L D Globulin 4.3 H Albumin/Globulin Ratio 0.8 L Venous Blood Potassium 4.0 Alcohol, Quantitative < 10 05/10/17 13:45 WBC RBC Hgb Hct MCV MCH MCHC RDW Plt Count MPV Neut % (Auto) Lymph % (Auto) [place] % (Auto) Eos % (Auto) Baso % (Auto) Neut # Lymph # [place] # Eos # Baso # pO2 VBG pH VBG pCO2 VBG HCO3 VBG Total CO2 VBG O2 Sat (Calc) VBG Base Excess VBG Potassium Sodium Chloride Glucose Lactate FiO2 Potassium Carbon Dioxide Anion Gap BUN Creatinine Est GFR ( Amer) Est GFR (Non-Af Amer) Random Glucose Calcium Total Bilirubin AST ALT Alkaline Phosphatase Ammonia 108 H* D Total Protein Albumin Globulin Albumin/Globulin Ratio Venous Blood Potassium Alcohol, Quantitative Assessment & Plan - Assessment and Plan (Free Text) Assessment: Assessment: 52 yo male w/ pmhx of hepatic encephalopathy, stage F4 Liver cirrhosis secondary to ETOH abuse, pancytopenia, GI bleed s/p TIPS in 2014 admitted for elevated ammonia level w/ altered mental status. Plan: Hepatic Encephalopathy, stage 2 -Elevated ammonia level -Altered mental status -Lactulose 30 gm given in ED. -F/u on ammonia level, cmp, PT/INR/PTT and lactic acid level. -f/u on blood cx and urine cx. -Start lactulose 20 gm daily. -GI consult, Dr. Bradley requested. Pancytopenia: -secondary to liver cirrhosis. -Continue monitor -CBC for tomorrow AM. Seizure disorder: -Continue home medication, Keppra 500 mg PO BID. DVT prophylaxis: -SCD's -Not on medical prophylaxis due to increased INR (2.0 on 05/05/17) and thrombocytopenia ( platelet 99). Diet: -Altered GI/hepatic diet - Date & Time Date: 05/10/17 Time: 02:45
[2017-05-10] MEDS: Pantoprazole 40 mg EC Tab PO SCH (17:14)
[2017-05-10 17:16] LABS: PARTIAL THROMBOPLASTIN TIME 42.5 Seconds (25.6-37.1)
[2017-05-10 18:33] LABS: RBC URINE 5 /hpf (0-3); URINE BACTERIA RARE (<OCC); URINE BILIRUBIN NEGATIVE (NEGATIVE); URINE BLOOD SMALL (NEGATIVE); URINE COLOR AMBER (YELLOW); URINE GLUCOSE (UA) NEG (Normal); URINE KETONE NEGATIVE (NEGATIVE); URINE LEUKOCYTE ESTERASE NEG Leu/uL (Negative); URINE PROTEIN NEGATIVE (NEGATIVE); WBC URINE 1 /hpf (0-5)
--- NOTE | 2017-05-10 22:58 | CP.PCM.CON ---
<Reyes Rangel - Last Filed: 05/10/17 23:00> History of Present Illness - History of Present Illness History of Present Illness: PGY4 Initial GI Consult Shreyas Sepulveda is a 52M w/ hx of Etoh abuse, cirrhosis 2/2 ETOH s/p TIPS, epilepsy who presented to the ED due to confusion, dizziness and lightheadedness. Pt states that he started experiencing episodes nausea since the day prior to admission. Pt is significantly confused upon evaluation and all the information obtained is from the EMR and staff writer. Denies any bright red blood and coffee-grounds. He states that he had a TIPS procedure in 2014. He denies any fever, chills, or diaphoresis. He was recently discharged from [facility] in early Apr 2017 for possible hematemsis. At the time, he was found to have significant portal hypertensive gastropathy. He was discharged on lactulose and as per ER he reports never using it as an oupt Pt has previous admission for upper GI bleed. In 10/2014 pt was admitted for upper GI bleed, which was likely 2/2 Hypertensive portal gastropathy. The admission resulted in a TIPs procedure. In 11/2015, a repeat EGD reveled no esophageal varices and mild gastric varices. Pt denies ever having any abd paracentesis. He notes 2 other previous admissions for HE. PMHx: ETOH abuse (last drink was 3 days ago, supposedly "half a shot"), Epilepsy , Cirrhosis 2/2 ETOH PsurgHx: TIPS in 2014 PHospHx: multiple ED visits for ETOH abuse FamilyHx: Father [place], mother breast cancer;sister diagnosed with colon cancer at age 58 SocialHx: -7 cigarettes per day since 15, ETOH abuse, and denies illicit drug use Endosopy hx: multiple EGD; last 04/2017 Past Patient History - Infectious Disease Hx of Infectious Diseases: None - Tetanus Immunizations Tetanus Immunization: Unknown - Past Medical History & Family History Past Medical History?: Yes - Past Social History Smoking Status: Current Some Days Smoker - CARDIAC Hx Cardiac Disorders: No Hx Hypertension: No (Denies as per patient) - PULMONARY Hx Respiratory Disorders: No - NEUROLOGICAL Hx Migraine: No Hx Parkinson's Disease: No Hx Seizures: Yes (last 01/11/17) - HEENT Hx HEENT Problems: No - RENAL Hx Chronic Kidney Disease: No - ENDOCRINE/METABOLIC Hx Endocrine Disorders: No Hx Diabetes Mellitus Type 2: No - HEMATOLOGICAL/ONCOLOGICAL Hx Anemia: Yes Hx Blood Transfusions: Yes Hx Cirrhosis: Yes - INTEGUMENTARY Hx Dermatological Problems: No - MUSCULOSKELETAL/RHEUMATOLOGICAL Hx Back Pain: Yes Hx Falls: No Hx Fractures: Yes (left shoulder, Left hand 5th digit) Hx Herniated Disk: Yes - GASTROINTESTINAL Hx Gastritis: Yes Hx Pancreatitis: No (patient denies) - GENITOURINARY/GYNECOLOGICAL Hx Genitourinary Disorders: No - PSYCHIATRIC Hx Psychophysiologic Disorder: No Hx Substance Use: No - SURGICAL HISTORY Hx Surgeries: Yes Other/Comment: stent for liver - ANESTHESIA Hx Anesthesia: Yes Hx Anesthesia Reactions: No Meds Allergies/Adverse Reactions: Allergies Allergy/AdvReac Type Severity Reaction Status Date / Time aspirin Allergy NAUSEA Verified 11/07/16 15:22 - Medications Medications: Current Medications Folic Acid (Folic Acid) 1 mg PO DAILY [facility] Lactulose (Enulose) 20 gm PO RQ4PRN [facility] Levetiracetam (Keppra) 500 mg PO BID [facility] Last Admin: 05/10/17 17:15 Dose: 500 mg Pantoprazole Sodium (Protonix Ec Tab) 40 mg PO BID [facility] Last Admin: 05/10/17 17:14 Dose: 40 mg Potassium Chloride (K-Dur 20 Meq Er Tab) 20 meq PO DAILY [facility] Physical Exam - Constitutional Appears: No Acute Distress, Confused, Chronically Ill - Head Exam Head Exam: ATRAUMATIC, NORMOCEPHALIC - Eye Exam Eye Exam: Normal appearance - ENT Exam ENT Exam: Mucous Membranes Moist - Respiratory Exam Respiratory Exam: Clear to Auscultation Bilateral, NORMAL BREATHING PATTERN. absent: Rales, Rhonchi, Wheezes, Respiratory Distress - Cardiovascular Exam Cardiovascular Exam: REGULAR RHYTHM, +S1, +S2 - GI/Abdominal Exam GI & Abdominal Exam: Normal Bowel Sounds, Soft. absent: Guarding, Organomegaly , Rebound, Rigid, Tenderness - Extremities Exam Extremities exam: Negative for: joint swelling, pedal edema - Neurological Exam Neurological exam: Alert, Oriented x3 - Psychiatric Exam Psychiatric exam: Normal Affect, Normal Mood - Skin Skin Exam: Dry, Intact, Normal Color, Warm Results - Vital Signs Recent Vital Signs: Last Vital Signs Temp 98 F 05/10/17 16:50 Pulse 80 05/10/17 16:50 Resp 18 05/10/17 16:50 BP 123/73 05/10/17 16:50 Pulse Ox 100 05/10/17 16:50 - Labs Result Diagrams: 05/10/17 13:45 05/10/17 13:45 Labs: Laboratory Results - last 24 hr 05/10/17 05/10/17 05/10/17 13:14 13:45 13:45 WBC 3.5 L RBC 3.12 L Hgb 10.7 L D Hct 32.1 L MCV 103.0 H MCH 34.4 H MCHC 33.4 RDW 14.6 H Plt Count 99 L D MPV 7.8 Neut % (Auto) 49.9 L Lymph % (Auto) 25.4 [place] % (Auto) 13.8 H Eos % (Auto) 9.2 H Baso % (Auto) 1.7 Neut # 1.8 Lymph # 0.9 L [place] # 0.5 Eos # 0.3 Baso # 0.1 PT INR APTT pO2 31 VBG pH 7.39 VBG pCO2 34 L VBG HCO3 21.2 VBG Total CO2 21.6 L VBG O2 Sat (Calc) 62.8 VBG Base Excess -3.7 L VBG Potassium 4.0 Sodium 141.0 143 Chloride 112.0 H 112 H Glucose 205 H Lactate 2.8 H FiO2 21.0 Potassium 4.0 Carbon Dioxide 19 L Anion Gap 16 BUN 12 Creatinine 0.8 Est GFR ( Amer) > 60 Est GFR (Non-Af Amer) > 60 Random Glucose 191 H Lactic Acid Calcium 8.3 L Total Bilirubin 3.6 H AST 75 H ALT 54 Alkaline Phosphatase 162 H Ammonia Total Protein 7.8 Albumin 3.4 L D Globulin 4.3 H Albumin/Globulin Ratio 0.8 L Venous Blood Potassium 4.0 Urine Color Urine Clarity Urine pH Ur Specific [place] Urine Protein Urine Glucose (UA) Urine Ketones Urine Blood Urine Nitrate Urine Bilirubin Urine Urobilinogen Ur Leukocyte Esterase Urine RBC (Auto) Urine Microscopic WBC Ur Squamous Epith Cells Urine Bacteria Hyaline Casts Alcohol, Quantitative < 10 05/10/17 05/10/17 05/10/17 13:45 16:45 16:45 WBC RBC Hgb Hct MCV MCH MCHC RDW Plt Count MPV Neut % (Auto) Lymph % (Auto) [place] % (Auto) Eos % (Auto) Baso % (Auto) Neut # Lymph # [place] # Eos # Baso # PT 18.4 H INR 1.6 H APTT 42.5 H pO2 VBG pH VBG pCO2 VBG HCO3 VBG Total CO2 VBG O2 Sat (Calc) VBG Base Excess VBG Potassium Sodium Chloride Glucose Lactate FiO2 Potassium Carbon Dioxide Anion Gap BUN Creatinine Est GFR ( Amer) Est GFR (Non-Af Amer) Random Glucose Lactic Acid Calcium Total Bilirubin AST ALT Alkaline Phosphatase Ammonia 108 H* D 121 H* Total Protein Albumin Globulin Albumin/Globulin Ratio Venous Blood Potassium Urine Color Urine Clarity Urine pH Ur Specific [place] Urine Protein Urine Glucose (UA) Urine Ketones Urine Blood Urine Nitrate Urine Bilirubin Urine Urobilinogen Ur Leukocyte Esterase Urine RBC (Auto) Urine Microscopic WBC Ur Squamous Epith Cells Urine Bacteria Hyaline Casts Alcohol, Quantitative 05/10/17 05/10/17 05/10/17 18:00 18:59 18:59 WBC RBC Hgb Hct MCV MCH MCHC RDW Plt Count MPV Neut % (Auto) Lymph % (Auto) [place] % (Auto) Eos % (Auto) Baso % (Auto) Neut # Lymph # [place] # Eos # Baso # PT INR APTT pO2 VBG pH VBG pCO2 VBG HCO3 VBG Total CO2 VBG O2 Sat (Calc) VBG Base Excess VBG Potassium Sodium Chloride Glucose Lactate FiO2 Potassium Carbon Dioxide Anion Gap BUN Creatinine Est GFR ( Amer) Est GFR (Non-Af Amer) Random Glucose Lactic Acid 2.2 H Calcium Total Bilirubin AST ALT Alkaline Phosphatase Ammonia Total Protein Albumin Globulin Albumin/Globulin Ratio Venous Blood Potassium Urine Color [place] Urine Clarity Slighty-cloudy Urine pH 5.0 Ur Specific [place] 1.020 Urine Protein Negative Urine Glucose (UA) Neg Urine Ketones Negative Urine Blood Small Urine Nitrate Negative Urine Bilirubin Negative Urine Urobilinogen 4.0 Ur Leukocyte Esterase Neg Urine RBC (Auto) 5 H Urine Microscopic WBC 1 Ur Squamous Epith Cells < 1 Urine Bacteria Rare Hyaline Casts 0-2 Alcohol, Quantitative < 10 Assessment & Plan - Assessment and Plan (Free Text) Assessment: Shreyas Sepulveda is a 52M w/ hx of decompensated cirrhosis 2/2 ETOH s/p TIPS, hx of ETOH abuse who presents with confusion. 1. HE 2. Anemia 3. Decompensated liver cirrhosis 2/2 ETOH s/p TIPS 4. hx of ETOH abuse 5. Portal hypertensive gastropathy Plan: -s/p TIPS in 2014 -HGb ~9 -continue aggressive lactulose PO q 1 hrs until 2-3 BM daily -if no improvement by tomorrow, can start xifaxan -advance diet as tolerated -aspiration precautions -needs to be adherent to oupt lactulose -no ascities notes -no indication for abx at this time -continue supportive care -consult on alcohol avoidance D/W Dr. Bradley <Gage Bradley MD - Last Filed: 05/11/17 10:43> Meds - Medications Medications: Current Medications Folic Acid (Folic Acid) 1 mg PO DAILY [facility] Last Admin: 05/11/17 08:47 Dose: 1 mg Lactulose (Enulose) 20 gm PO RQ4PRN [facility] Last Admin: 05/11/17 06:57 Dose: 20 gm Levetiracetam (Keppra) 500 mg PO BID [facility] Last Admin: 05/11/17 08:47 Dose: 500 mg Pantoprazole Sodium (Protonix Ec Tab) 40 mg PO BID [facility] Last Admin: 05/11/17 08:48 Dose: 40 mg Potassium Chloride (K-Dur 20 Meq Er Tab) 20 meq PO DAILY [facility] Last Admin: 05/11/17 08:48 Dose: 20 meq Results - Vital Signs Recent Vital Signs: Last Vital Signs Temp 97.8 F 05/11/17 08:31 Pulse 86 05/11/17 08:31 Resp 18 05/11/17 08:31 BP 109/57 L 05/11/17 08:31 Pulse Ox 99 05/11/17 08:31 - Labs Result Diagrams: 05/11/17 06:20 05/11/17 06:20 Labs: Laboratory Results - last 24 hr 05/10/17 05/10/17 05/10/17 13:14 13:45 13:45 WBC 3.5 L RBC 3.12 L Hgb 10.7 L D Hct 32.1 L MCV 103.0 H MCH 34.4 H MCHC 33.4 RDW 14.6 H Plt Count 99 L D MPV 7.8 Neut % (Auto) 49.9 L Lymph % (Auto) 25.4 [place] % (Auto) 13.8 H Eos % (Auto) 9.2 H Baso % (Auto) 1.7 Neut # 1.8 Lymph # 0.9 L [place] # 0.5 Eos # 0.3 Baso # 0.1 PT INR APTT pO2 31 VBG pH 7.39 VBG pCO2 34 L VBG HCO3 21.2 VBG Total CO2 21.6 L VBG O2 Sat (Calc) 62.8 VBG Base Excess -3.7 L VBG Potassium 4.0 Sodium 141.0 143 Chloride 112.0 H 112 H Glucose 205 H Lactate 2.8 H FiO2 21.0 Potassium 4.0 Carbon Dioxide 19 L Anion Gap 16 BUN 12 Creatinine 0.8 Est GFR ( Amer) > 60 Est GFR (Non-Af Amer) > 60 Random Glucose 191 H Lactic Acid Calcium 8.3 L Total Bilirubin 3.6 H AST 75 H ALT 54 Alkaline Phosphatase 162 H Ammonia Total Protein 7.8 Albumin 3.4 L D Globulin 4.3 H Albumin/Globulin Ratio 0.8 L Venous Blood Potassium 4.0 Urine Color Urine Clarity Urine pH Ur Specific [place] Urine Protein Urine Glucose (UA) Urine Ketones Urine Blood Urine Nitrate Urine Bilirubin Urine Urobilinogen Ur Leukocyte Esterase Urine RBC (Auto) Urine Microscopic WBC Ur Squamous Epith Cells Urine Bacteria Hyaline Casts Urine Opiates Screen Urine Methadone Screen Ur Barbiturates Screen Ur Phencyclidine Scrn Ur Amphetamines Screen U Benzodiazepines Scrn U Oth Cocaine Metabols U Cannabinoids Screen Alcohol, Quantitative < 10 05/10/17 05/10/17 05/10/17 13:45 16:45 16:45 WBC RBC Hgb Hct MCV MCH MCHC RDW Plt Count MPV Neut % (Auto) Lymph % (Auto) [place] % (Auto) Eos % (Auto) Baso % (Auto) Neut # Lymph # [place] # Eos # Baso # PT 18.4 H INR 1.6 H APTT 42.5 H pO2 VBG pH VBG pCO2 VBG HCO3 VBG Total CO2 VBG O2 Sat (Calc) VBG Base Excess VBG Potassium Sodium Chloride Glucose Lactate FiO2 Potassium Carbon Dioxide Anion Gap BUN Creatinine Est GFR ( Amer) Est GFR (Non-Af Amer) Random Glucose Lactic Acid Calcium Total Bilirubin AST ALT Alkaline Phosphatase Ammonia 108 H* D 121 H* Total Protein Albumin Globulin Albumin/Globulin Ratio Venous Blood Potassium Urine Color Urine Clarity Urine pH Ur Specific [place] Urine Protein Urine Glucose (UA) Urine Ketones Urine Blood Urine Nitrate Urine Bilirubin Urine Urobilinogen Ur Leukocyte Esterase Urine RBC (Auto) Urine Microscopic WBC Ur Squamous Epith Cells Urine Bacteria Hyaline Casts Urine Opiates Screen Urine Methadone Screen Ur Barbiturates Screen Ur Phencyclidine Scrn Ur Amphetamines Screen U Benzodiazepines Scrn U Oth Cocaine Metabols U Cannabinoids Screen Alcohol, Quantitative 05/10/17 05/10/17 05/10/17 18:00 18:59 18:59 WBC RBC Hgb Hct MCV MCH MCHC RDW Plt Count MPV Neut % (Auto) Lymph % (Auto) [place] % (Auto) Eos % (Auto) Baso % (Auto) Neut # Lymph # [place] # Eos # Baso # PT INR APTT pO2 VBG pH VBG pCO2 VBG HCO3 VBG Total CO2 VBG O2 Sat (Calc) VBG Base Excess VBG Potassium Sodium Chloride Glucose Lactate FiO2 Potassium Carbon Dioxide Anion Gap BUN Creatinine Est GFR ( Amer) Est GFR (Non-Af Amer) Random Glucose Lactic Acid 2.2 H Calcium Total Bilirubin AST ALT Alkaline Phosphatase Ammonia Total Protein Albumin Globulin Albumin/Globulin Ratio Venous Blood Potassium Urine Color [place] Urine Clarity Slighty-cloudy Urine pH 5.0 Ur Specific [place] 1.020 Urine Protein Negative Urine Glucose (UA) Neg Urine Ketones Negative Urine Blood Small Urine Nitrate Negative Urine Bilirubin Negative Urine Urobilinogen 4.0 Ur Leukocyte Esterase Neg Urine RBC (Auto) 5 H Urine Microscopic WBC 1 Ur Squamous Epith Cells < 1 Urine Bacteria Rare Hyaline Casts 0-2 Urine Opiates Screen Urine Methadone Screen Ur Barbiturates Screen Ur Phencyclidine Scrn Ur Amphetamines Screen U Benzodiazepines Scrn U Oth Cocaine Metabols U Cannabinoids Screen Alcohol, Quantitative < 10 05/11/17 05/11/17 05/11/17 06:20 06:20 06:20 WBC 4.9 RBC 2.81 L Hgb 9.5 L Hct 28.6 L MCV 101.8 H MCH 33.9 H MCHC 33.3 RDW 14.5 Plt Count 85 L MPV 7.5 Neut % (Auto) 47.8 L Lymph % (Auto) 26.1 [place] % (Auto) 17.5 H Eos % (Auto) 8.1 H Baso % (Auto) 0.5 Neut # 2.4 Lymph # 1.3 [place] # 0.9 H Eos # 0.4 Baso # 0.0 PT INR APTT pO2 VBG pH VBG pCO2 VBG HCO3 VBG Total CO2 VBG O2 Sat (Calc) VBG Base Excess VBG Potassium Sodium 144 Chloride 114 H Glucose Lactate FiO2 Potassium 3.9 Carbon Dioxide 19 L Anion Gap 15 BUN 15 Creatinine 0.8 Est GFR ( Amer) > 60 Est GFR (Non-Af Amer) > 60 Random Glucose 103 Lactic Acid Calcium 8.6 Total Bilirubin 3.8 H AST 70 H ALT 55 Alkaline Phosphatase 143 H Ammonia 123 H* Total Protein 7.5 Albumin 3.3 L Globulin 4.2 H Albumin/Globulin Ratio 0.8 L Venous Blood Potassium Urine Color Urine Clarity Urine pH Ur Specific [place] Urine Protein Urine Glucose (UA) Urine Ketones Urine Blood Urine Nitrate Urine Bilirubin Urine Urobilinogen Ur Leukocyte Esterase Urine RBC (Auto) Urine Microscopic WBC Ur Squamous Epith Cells Urine Bacteria Hyaline Casts Urine Opiates Screen Urine Methadone Screen Ur Barbiturates Screen Ur Phencyclidine Scrn Ur Amphetamines Screen U Benzodiazepines Scrn U Oth Cocaine Metabols U Cannabinoids Screen Alcohol, Quantitative 05/11/17 08:30 WBC RBC Hgb Hct MCV MCH MCHC RDW Plt Count MPV Neut % (Auto) Lymph % (Auto) [place] % (Auto) Eos % (Auto) Baso % (Auto) Neut # Lymph # [place] # Eos # Baso # PT INR APTT pO2 VBG pH VBG pCO2 VBG HCO3 VBG Total CO2 VBG O2 Sat (Calc) VBG Base Excess VBG Potassium Sodium Chloride Glucose Lactate FiO2 Potassium Carbon Dioxide Anion Gap BUN Creatinine Est GFR ( Amer) Est GFR (Non-Af Amer) Random Glucose Lactic Acid Calcium Total Bilirubin AST ALT Alkaline Phosphatase Ammonia Total Protein Albumin Globulin Albumin/Globulin Ratio Venous Blood Potassium Urine Color Urine Clarity Urine pH Ur Specific [place] Urine Protein Urine Glucose (UA) Urine Ketones Urine Blood Urine Nitrate Urine Bilirubin Urine Urobilinogen Ur Leukocyte Esterase Urine RBC (Auto) Urine Microscopic WBC Ur Squamous Epith Cells Urine Bacteria Hyaline Casts Urine Opiates Screen Negative Urine Methadone Screen Negative Ur Barbiturates Screen Negative Ur Phencyclidine Scrn Negative Ur Amphetamines Screen Negative U Benzodiazepines Scrn Positive U Oth Cocaine Metabols Negative U Cannabinoids Screen Negative Alcohol, Quantitative Attending/Attestation - Attestation I have personally seen and examined this patient.: Yes I have fully participated in the care of the patient.: Yes I have reviewed all pertinent clinical information: Yes Notes (Text): 05/11/17 10:43 Patient seen with GI fellow last night- Late entry- This is a 52 yr old M with history of decompensated cirrhosis 2/2 ETOH s/p TIPS, hx of ETOH abuse who presents with possible HE. He had EGD on 05/03/17 which revealed hypertensive portal gastropathy and Grade C esophagitis. He had repeat EGD a day later for drop in Hb that showed protrubent vessel at GEJ with recent stigmata of bleeding. Hemostasis was achieved with 3 cc of 1:10,000 epinephrine and resolution clip placement and bipolar probe. His Hb/Hct stable. He is not oriented to place and time. Will give oral lactulose and lactulose enemas titrate to 2 BM/day. Patient has a patent TIPS and hence does not have ascites or varices. Will follow
[2017-05-11 06:32] LABS: BASO % 0.5 % (0.0-2.0); EOS # 0.4 K/uL (0.0-0.7); EOS % 8.1 % (0.0-4.0); HEMATOCRIT 28.6 % (35.0-51.0); LYMPH # 1.3 K/uL (1.0-4.3); LYMPH % 26.1 % (20.0-40.0); MEAN CELL VOLUME 101.8 fl (80.0-94.0); MEAN CORPUSCULAR HEMOGLOBIN 33.9 pg (27.0-31.0); MEAN CORPUSCULAR HGB CONC 33.3 g/dL (33.0-37.0); MEAN PLATELET VOLUME 7.5 fl (7.2-11.7); MONO # 0.9 K/uL (0.0-0.8); MONO % 17.5 % (0.0-10.0); NEUT # 2.4 K/uL (1.8-7.0); NEUT % 47.8 % (50.0-75.0); RED CELL DISTRIBUTION WIDTH 14.5 % (11.5-14.5); WHITE BLOOD COUNT 4.9 K/uL (4.8-10.8)
[2017-05-11 07:00] LABS: ALB/GLOB RATIO 0.8 (1.0-2.1); ALKALINE PHOSPHATASE 143 U/L (38-126); ALT/SGPT 55 U/L (21-72); AST/SGOT 70 U/L (17-59); BILIRUBIN,TOTAL 3.8 mg/dl (0.2-1.3); BLOOD UREA NITROGEN 15 mg/dl (9-20); CALCIUM 8.6 mg/dL (8.4-10.2); CARBON DIOXIDE 19 mmol/L (22-30); CHLORIDE 114 mmol/L (98-107); GFR AFRICAN-AMERICAN > 60; GLUCOSE,RANDOM 103 mg/dL (75-110); POTASSIUM 3.9 MMOL/L (3.6-5.0); SODIUM 144 mmol/l (132-148); TOTAL PROTEIN 7.5 G/DL (6.3-8.2)
--- NOTE | 2017-05-11 07:43 | CP.PCM.PN ---
Subjective - Date & Time of Evaluation Date of Evaluation: 05/11/17 Time of Evaluation: 07:43 - Subjective Subjective: Pt seen and examined at bedside this morning. Pt is more confused and slow to respond questions. Reports 3 BM since admission. Last BM 3 hours ago as per pt. Tolerating PO intake. Denies abdominal pain, nausea, vomiting, headache or dizziness. Denies chest pain, dyspnea, cough or complaints. Objective - Vital Signs/Intake and Output Vital Signs (last 24 hours): Temp Pulse Resp BP Pulse Ox 97.8 F 89 19 106/61 100 05/11/17 00:30 05/11/17 00:30 05/11/17 00:30 05/11/17 00:30 05/11/17 00:30 - Medications Medications: Current Medications Folic Acid (Folic Acid) 1 mg PO DAILY [facility] Lactulose (Enulose) 20 gm PO RQ4PRN [facility] Last Admin: 05/11/17 06:57 Dose: 20 gm Levetiracetam (Keppra) 500 mg PO BID [facility] Last Admin: 05/10/17 17:15 Dose: 500 mg Pantoprazole Sodium (Protonix Ec Tab) 40 mg PO BID [facility] Last Admin: 05/10/17 17:14 Dose: 40 mg Potassium Chloride (K-Dur 20 Meq Er Tab) 20 meq PO DAILY [facility] - Labs Labs: 05/11/17 06:20 05/11/17 06:20 PT 18.4 Seconds (9.8-13.1) H 05/10/17 16:45 INR 1.6 (0.9-1.2) H 05/10/17 16:45 APTT 42.5 Seconds (25.6-37.1) H 05/10/17 16:45 - Constitutional Appears: No Acute Distress, Confused - Head Exam Head Exam: ATRAUMATIC, NORMOCEPHALIC - ENT Exam ENT Exam: Mucous Membranes Moist - Respiratory Exam Respiratory Exam: Clear to Ausculation Bilateral. absent: Rales, Rhonchi, Wheezes - Cardiovascular Exam Cardiovascular Exam: REGULAR RHYTHM, RRR, +S1, +S2. absent: Gallop, Murmur - GI/Abdominal Exam GI & Abdominal Exam: Soft, Normal Bowel Sounds. absent: Distended, Guarding, Tenderness, Rebound - Extremities Exam Extremities Exam: Normal Capillary Refill. absent: Calf Tenderness, Pedal Edema - Neurological Exam Neurological Exam: Alert (appears more confused and slow to respond.), Awake Additional comments: asterixis + - Skin Additional comments: spider angiomata on right sided chest. Assessment and Plan - Assessment and Plan (Free Text) Assessment: 52 yo male w/ pmhx of hepatic encephalopathy, stage F4 Liver cirrhosis secondary to ETOH abuse, pancytopenia, GI bleed s/p TIPS in 2014 admitted for hepatic encephalopathy. Plan: Hepatic Encephalopathy, stage 3 -Ammonia level 123 today ( 108 on admission) -More confused and slowed to respond today. -Had 3 BM since admission per pt -Lactulose 20 gm po q4hprn. -Lactulose 200 gm VT ordered. -f/u on blood cx and urine cx. -GI consult by Dr. Bradley appreciated. Pancytopenia: -CBC: 4.9/9.5/28.6/85 -secondary to liver cirrhosis. -Continue monitor -CBC for tomorrow AM. Seizure disorder: -Continue home medication, Keppra 500 mg PO BID. DVT prophylaxis: -SCD's -Not on medical prophylaxis due to increased INR (1.6) and thrombocytopenia ( platelet 99). Diet: -Altered GI/hepatic diet
--- NOTE | 2017-05-11 07:58 | CP.PCM.PN ---
<Reyes Rangel - Last Filed: 05/11/17 07:57> Subjective - Date & Time of Evaluation Date of Evaluation: 05/11/17 Time of Evaluation: 07:00 - Subjective Subjective: PGY 4 GI Follow-up Pt seen and examined bedside Less confused 3 BM overnight tolerating diet denies any abd pain Objective - Vital Signs/Intake and Output Vital Signs (last 24 hours): Temp Pulse Resp BP Pulse Ox 97.8 F 89 19 106/61 100 05/11/17 00:30 05/11/17 00:30 05/11/17 00:30 05/11/17 00:30 05/11/17 00:30 - Medications Medications: Current Medications Folic Acid (Folic Acid) 1 mg PO DAILY [facility] Lactulose (Enulose) 20 gm PO RQ4PRN [facility] Last Admin: 05/11/17 06:57 Dose: 20 gm Levetiracetam (Keppra) 500 mg PO BID [facility] Last Admin: 05/10/17 17:15 Dose: 500 mg Pantoprazole Sodium (Protonix Ec Tab) 40 mg PO BID [facility] Last Admin: 05/10/17 17:14 Dose: 40 mg Potassium Chloride (K-Dur 20 Meq Er Tab) 20 meq PO DAILY [facility] - Labs Labs: 05/11/17 06:20 05/11/17 06:20 PT 18.4 Seconds (9.8-13.1) H 05/10/17 16:45 INR 1.6 (0.9-1.2) H 05/10/17 16:45 APTT 42.5 Seconds (25.6-37.1) H 05/10/17 16:45 <Gage Bradley MD - Last Filed: 05/11/17 10:43> Objective - Vital Signs/Intake and Output Vital Signs (last 24 hours): Temp Pulse Resp BP Pulse Ox 97.8 F 86 18 109/57 L 99 05/11/17 08:31 05/11/17 08:31 05/11/17 08:31 05/11/17 08:31 05/11/17 08:31 - Medications Medications: Current Medications Folic Acid (Folic Acid) 1 mg PO DAILY [facility] Last Admin: 05/11/17 08:47 Dose: 1 mg Lactulose (Enulose) 20 gm PO RQ4PRN [facility] Last Admin: 05/11/17 06:57 Dose: 20 gm Levetiracetam (Keppra) 500 mg PO BID [facility] Last Admin: 05/11/17 08:47 Dose: 500 mg Pantoprazole Sodium (Protonix Ec Tab) 40 mg PO BID [facility] Last Admin: 05/11/17 08:48 Dose: 40 mg Potassium Chloride (K-Dur 20 Meq Er Tab) 20 meq PO DAILY [facility] Last Admin: 05/11/17 08:48 Dose: 20 meq - Labs Labs: 05/11/17 06:20 05/11/17 06:20 PT 18.4 Seconds (9.8-13.1) H 05/10/17 16:45 INR 1.6 (0.9-1.2) H 05/10/17 16:45 APTT 42.5 Seconds (25.6-37.1) H 05/10/17 16:45 Attending/Attestation - Attestation I have personally seen and examined this patient.: Yes I have fully participated in the care of the patient.: Yes I have reviewed all pertinent clinical information, including history, physical exam and plan: Yes Notes (Text): 05/11/17 10:43 Patient seen with GI fellow on morning rounds- Late entry- This is a 52 yr old M with history of decompensated cirrhosis 2/2 ETOH s/p TIPS, hx of ETOH abuse who presents with possible HE. He had EGD on 05/03/17 which revealed hypertensive portal gastropathy and Grade C esophagitis. He had repeat EGD a day later for drop in Hb that showed protrubent vessel at GEJ with recent stigmata of bleeding. Hemostasis was achieved with 3 cc of 1:10,000 epinephrine and resolution clip placement and bipolar probe. His Hb/Hct stable. He is not oriented to place and time. Will give oral lactulose and lactulose enemas titrate to 2 BM/day. Patient has a patent TIPS and hence does not have ascites or varices. Will follow
--- NOTE | 2017-05-11 08:29 | CARD ---
APPROVED REPORT EKG Measurement Heart [id number] <Conclusion> Normal sinus rhythm Possible Left atrial enlargement Cannot rule out Anterior infarct, age undetermined Abnormal ECG
[2017-05-11] MEDS: Potassium Chloride 20 mEq ER Tab PO SCH (08:48)
[2017-05-11] MEDS: Pantoprazole 40 mg EC Tab PO SCH ×2 (08:48→18:26)
[2017-05-11] MEDS ORDERED: Lactulose 10 gm/15 ml (Rectal Use) PR ONE (11:30)
[2017-05-12 06:00] LABS: HEMATOCRIT 30.6 % (35.0-51.0); MEAN CELL VOLUME 101.6 fl (80.0-94.0); MEAN CORPUSCULAR HEMOGLOBIN 33.3 pg (27.0-31.0); MEAN CORPUSCULAR HGB CONC 32.8 g/dL (33.0-37.0); RED CELL DISTRIBUTION WIDTH 14.5 % (11.5-14.5); WHITE BLOOD COUNT 6.8 K/uL (4.8-10.8)
[2017-05-12 06:05] LABS: ALB/GLOB RATIO 0.8 (1.0-2.1); ALKALINE PHOSPHATASE 143 U/L (38-126); ALT/SGPT 54 U/L (21-72); AST/SGOT 76 U/L (17-59); BILIRUBIN,TOTAL 4.2 mg/dl (0.2-1.3); BLOOD UREA NITROGEN 10 mg/dl (9-20); CALCIUM 8.8 mg/dL (8.4-10.2); CARBON DIOXIDE 20 mmol/L (22-30); CHLORIDE 111 mmol/L (98-107); GFR AFRICAN-AMERICAN > 60; GLUCOSE,RANDOM 112 mg/dL (75-110); POTASSIUM 3.9 MMOL/L (3.6-5.0); SODIUM 143 mmol/l (132-148); TOTAL PROTEIN 7.8 G/DL (6.3-8.2)
--- NOTE | 2017-05-12 07:35 | CP.PCM.PN ---
Subjective - Date & Time of Evaluation Date of Evaluation: 05/12/17 Time of Evaluation: 07:35 - Subjective Subjective: Pt seen and examined at bedside this morning. Pt is still confused but improving and slow to respond questions. Reports one BM last night, confirmed with the nurse. . Tolerating PO intake. Has good appetite. Denies abdominal pain , nausea, vomiting, headache, dizziness, melena or hematochezia. Denies chest pain, dyspnea, cough or complaints. Objective - Vital Signs/Intake and Output Vital Signs (last 24 hours): Temp Pulse Resp BP Pulse Ox 99.4 F 89 18 113/62 98 05/12/17 00:49 05/12/17 00:49 05/12/17 00:49 05/12/17 00:49 05/12/17 00:49 - Medications Medications: Current Medications Folic Acid (Folic Acid) 1 mg PO DAILY [facility] Last Admin: 05/11/17 08:47 Dose: 1 mg Lactulose (Enulose) 20 gm PO [id number] [facility] Last Admin: 05/12/17 03:54 Dose: 20 gm Lactulose (Enulose) 20 gm PO DAILY PRN PRN Reason: Constipation Levetiracetam (Keppra) 500 mg PO BID [facility] Last Admin: 05/11/17 18:26 Dose: 500 mg Pantoprazole Sodium (Protonix Ec Tab) 40 mg PO BID [facility] Last Admin: 05/11/17 18:26 Dose: 40 mg Potassium Chloride (K-Dur 20 Meq Er Tab) 20 meq PO DAILY [facility] Last Admin: 05/11/17 08:48 Dose: 20 meq - Labs Labs: 05/12/17 05:40 05/12/17 05:40 PT 21.3 Seconds (9.8-13.1) H 05/12/17 05:40 INR 1.9 (0.9-1.2) H 05/12/17 05:40 APTT 42.5 Seconds (25.6-37.1) H 05/10/17 16:45 - Constitutional Appears: No Acute Distress, Confused (improving) - Eye Exam Eye Exam: EOMI, Scleral icterus - ENT Exam ENT Exam: Mucous Membranes Moist - Neck Exam Neck Exam: Full ROM, Normal Inspection - Respiratory Exam Respiratory Exam: Clear to Ausculation Bilateral. absent: Rales, Rhonchi, Wheezes - Cardiovascular Exam Cardiovascular Exam: REGULAR RHYTHM, RRR, +S1, +S2. absent: Gallop - GI/Abdominal Exam GI & Abdominal Exam: Soft, Normal Bowel Sounds. absent: Guarding, Tenderness - Extremities Exam Extremities Exam: Normal Capillary Refill, Normal Inspection. absent: Calf Tenderness, Pedal Edema - Neurological Exam Neurological Exam: Alert, Awake Additional comments: minimal hand tremor. - Psychiatric Exam Psychiatric exam: Normal Affect, Normal Mood - Skin Skin Exam: Dry, Pallor Additional comments: spider angiomata on right sided chest. Assessment and Plan - Assessment and Plan (Free Text) Assessment: 52 yo male w/ pmhx of hepatic encephalopathy, stage F4 Liver cirrhosis secondary to ETOH abuse, pancytopenia, GI bleed s/p TIPS in 2014 admitted for hepatic encephalopathy. Plan: Hepatic Encephalopathy, stage 3 -Ammonia level 69 today ( 123 highest yesterday) -Less confused and still slow to respond. -Had 1 BM last night. -Start lactulose 20 gm po q4h. -Blood cx: no growth after 24 hrs -Urine cx: no growth. -GI consult by Dr. Bradley appreciated. Pancytopenia: -CBC: 6.8>10/30.6<94 -secondary to liver cirrhosis. -Continue monitor -CBC for tomorrow AM. Seizure disorder: -Continue home medication, Keppra 500 mg PO BID. DVT prophylaxis: -SCD's -Not on medical prophylaxis due to increased INR (1.9) and thrombocytopenia ( platelet 94). Diet: -Altered GI/hepatic diet
[2017-05-12] MEDS: Potassium Chloride 20 mEq ER Tab PO SCH (08:58)
[2017-05-12] MEDS: Pantoprazole 40 mg EC Tab PO SCH (08:58)
--- NOTE | 2017-05-12 11:15 | CP.PCM.PN ---
<Reyes Rangel - Last Filed: 05/12/17 11:17> Subjective - Date & Time of Evaluation Date of Evaluation: 05/12/17 Time of Evaluation: 10:00 - Subjective Subjective: PGY 4 GI Follow-up Pt seen and examined bedside Less confused, but still not oriented to place and time 1 BM overnight , and 1 in the AM tolerating diet denies any abd pain ROS: 10 point ROS conducted, neg other than above Objective - Vital Signs/Intake and Output Vital Signs (last 24 hours): Temp Pulse Resp BP Pulse Ox 98.7 F 92 H 20 113/67 99 05/12/17 08:34 05/12/17 08:34 05/12/17 08:34 05/12/17 08:34 05/12/17 08:34 - Medications Medications: Current Medications Folic Acid (Folic Acid) 1 mg PO DAILY [facility] Last Admin: 05/12/17 08:58 Dose: 1 mg Lactulose (Enulose) 20 gm PO DAILY PRN PRN Reason: Constipation Lactulose (Enulose) 20 gm PO Q4 [facility] Levetiracetam (Keppra) 500 mg PO BID [facility] Last Admin: 05/12/17 08:58 Dose: 500 mg Pantoprazole Sodium (Protonix Ec Tab) 40 mg PO ONCE ONE Stop: 05/13/17 07:01 Potassium Chloride (K-Dur 20 Meq Er Tab) 20 meq PO DAILY [facility] Last Admin: 05/12/17 08:58 Dose: 20 meq - Labs Labs: 05/12/17 05:40 05/12/17 05:40 PT 21.3 Seconds (9.8-13.1) H 05/12/17 05:40 INR 1.9 (0.9-1.2) H 05/12/17 05:40 APTT 42.5 Seconds (25.6-37.1) H 05/10/17 16:45 - Constitutional Appears: No Acute Distress, Confused - Head Exam Head Exam: ATRAUMATIC, NORMOCEPHALIC - Eye Exam Eye Exam: Normal appearance - ENT Exam ENT Exam: Mucous Membranes Moist - Respiratory Exam Respiratory Exam: Clear to Ausculation Bilateral, NORMAL BREATHING PATTERN. absent: Rales, Rhonchi, Wheezes, Respiratory Distress - Cardiovascular Exam Cardiovascular Exam: REGULAR RHYTHM, +S1, +S2 - GI/Abdominal Exam GI & Abdominal Exam: Soft, Normal Bowel Sounds. absent: Distended, Guarding, Rigid, Tenderness, Organomegaly - Extremities Exam Extremities Exam: absent: Joint Swelling, Pedal Edema - Neurological Exam Neurological Exam: Alert, Awake, Oriented x3 - Psychiatric Exam Psychiatric exam: Normal Affect, Normal Mood - Skin Skin Exam: Dry, Intact, Normal Color, Warm Assessment and Plan - Assessment and Plan (Free Text) Assessment: Shreyas Sepulveda is a 52M w/ hx of decompensated cirrhosis 2/2 ETOH s/p TIPS, hx of ETOH abuse who presents with confusion. 1. HE 2. Anemia 3. Decompensated liver cirrhosis 2/2 ETOH s/p TIPS 4. hx of ETOH abuse 5. Portal hypertensive gastropathy Plan: -s/p TIPS in 2014 -HGb ~9 -continue aggressive lactulose q 4hrs until 2-3 BM daily -advance diet as tolerated -aspiration precautions -needs to be adherent to oupt lactulose -no ascities notes -no indication for abx at this time -continue supportive care -consulted on alcohol avoidance -MELD 05/12/17: 19 D/W Dr. Bradley <Kirk ADRIAN,[facility] - Last Filed: 05/12/17 14:17> Objective - Vital Signs/Intake and Output Vital Signs (last 24 hours): Temp Pulse Resp BP Pulse Ox 98.7 F 92 H 20 113/67 99 05/12/17 08:34 05/12/17 08:34 05/12/17 08:34 05/12/17 08:34 05/12/17 08:34 - Medications Medications: Current Medications Folic Acid (Folic Acid) 1 mg PO DAILY [facility] Last Admin: 05/12/17 08:58 Dose: 1 mg Lactulose (Enulose) 20 gm PO DAILY PRN PRN Reason: Constipation Lactulose (Enulose) 20 gm PO Q4 [facility] Last Admin: 05/12/17 13:11 Dose: 20 gm Levetiracetam (Keppra) 500 mg PO BID [facility] Last Admin: 05/12/17 08:58 Dose: 500 mg Pantoprazole Sodium (Protonix Ec Tab) 40 mg PO ONCE ONE Stop: 05/13/17 07:01 Potassium Chloride (K-Dur 20 Meq Er Tab) 20 meq PO DAILY [facility] Last Admin: 05/12/17 08:58 Dose: 20 meq Trazodone HCl (Desyrel) 50 mg PO HS JANNIE - Labs Labs: 05/12/17 05:40 05/12/17 05:40 PT 21.3 Seconds (9.8-13.1) H 05/12/17 05:40 INR 1.9 (0.9-1.2) H 05/12/17 05:40 APTT 42.5 Seconds (25.6-37.1) H 05/10/17 16:45 Attending/Attestation - Attestation I have personally seen and examined this patient.: Yes I have fully participated in the care of the patient.: Yes I have reviewed all pertinent clinical information, including history, physical exam and plan: Yes Notes (Text): 05/12/17 14:16 Patient seen with GI fellow on morning rounds- This is a 52 yr old M with history of decompensated cirrhosis 2/2 ETOH s/p TIPS, hx of ETOH abuse who presents with possible HE. He had EGD on 05/03/17 which revealed hypertensive portal gastropathy and Grade C esophagitis. He had repeat EGD a day later for drop in Hb that showed protrubent vessel at GEJ with recent stigmata of bleeding. Hemostasis was achieved with 3 cc of 1:10,000 epinephrine and resolution clip placement and bipolar probe. His Hb/Hct stable. He is not oriented to place and time. He is on oral lactulose with titration to 2 BM/day. Patient has a patent TIPS and hence does not have ascites or varices. Will follow closely
[2017-05-13 00:21] VITALS: BP 95/60; PULSE 97; RESP 18; TEMP 99.2; O2SAT 97
[2017-05-13] MEDS ORDERED: Pantoprazole 40 mg EC Tab PO ONE (07:00)
--- NOTE | 2017-05-13 07:52 | CP.PCM.PN ---
Subjective - Date & Time of Evaluation Date of Evaluation: 05/13/17 Time of Evaluation: 07:20 - Subjective Subjective: Pt wants to leave and understand the consequences of leaving. Pt signed out against medical advise. Objective - Vital Signs/Intake and Output Vital Signs (last 24 hours): Temp Pulse Resp BP Pulse Ox 99.2 F 97 H 18 95/60 L 97 05/13/17 00:20 05/13/17 00:20 05/13/17 00:20 05/13/17 00:20 05/13/17 00:20 - Medications Medications: Current Medications Folic Acid (Folic Acid) 1 mg PO DAILY [facility] Last Admin: 05/12/17 08:58 Dose: 1 mg Lactulose (Enulose) 20 gm PO DAILY PRN PRN Reason: Constipation Lactulose (Enulose) 20 gm PO Q4 [facility] Last Admin: 05/13/17 06:00 Dose: Not Given Levetiracetam (Keppra) 500 mg PO BID [facility] Last Admin: 05/12/17 18:09 Dose: 500 mg Potassium Chloride (K-Dur 20 Meq Er Tab) 20 meq PO DAILY [facility] Last Admin: 05/12/17 08:58 Dose: 20 meq Trazodone HCl (Desyrel) 50 mg PO HS [facility] Last Admin: 05/12/17 21:03 Dose: 50 mg - Labs Labs: 05/12/17 05:40 05/12/17 05:40 PT 21.3 Seconds (9.8-13.1) H 05/12/17 05:40 INR 1.9 (0.9-1.2) H 05/12/17 05:40 APTT 42.5 Seconds (25.6-37.1) H 05/10/17 16:45
[2017-05-13 07:57] LABS: BLOOD UREA NITROGEN 13 mg/dl (9-20); CARBON DIOXIDE 23 mmol/L (22-30); CHLORIDE 106 mmol/L (98-107); GFR AFRICAN-AMERICAN > 60; GLUCOSE,RANDOM 119 mg/dL (75-110); POTASSIUM 4.5 MMOL/L (3.6-5.0); SODIUM 140 mmol/l (132-148)
--- NOTE | 2017-05-16 11:02 | PQF GENQUE ---
Dr. Rowe pt is admitted with a diagnosis of hepatic encephalopathy. If known what is the underlying cause? This form is a permanent part of the medical record Clarification of your documentation is requested to better reflect the severity of illness and intensity of treatment of your patient. Indicators present [] Specify: [] [] Specify: [] [] Specify: [] [] Specify: [] Location in the medical record that reflects the above clinical findings: [] Treatment Provided: [] PHYSICIAN'S RESPONSE due to liver cirrhosis from etoh Based on your medical judgment of the clinical indicators outlined above please clarify the following: [] Practitioner response [] If unable to determine, please check the box, sign and date. Present On Admission (POA) Indicator: [] Present at the time of admission [] Not present at the time of admission [] Clinically Undetermined In responding to this query, please exercise your independent professional judgment. The fact that a question is asked does not imply that any particular answer is desired or expected. Thank you for your clarification on this documentation. If you have any questions please call:[ ] * Thank you, [ ]Xiao Landa forming mill operator KELLY
== END 2017-05-13 07:15 | disposition left against medical advice (07) | DRG 202 ==
LOC: H.ER 11:58 → H.ERHOLD 14:17 → H.MEDSURG1 15:41
PROVIDERS: ADMIT Family Medicine Geriatric Medicine; ATTEND Family Medicine Geriatric Medicine
DX: K70.40 Alcoholic hepatic failure without coma (principal); K70.30 Alcoholic cirrhosis of liver without ascites; D61.818 Other pancytopenia; K76.6 Portal hypertension; D64.9 Anemia, unspecified; F10.10 Alcohol abuse, uncomplicated; Y90.0 Blood alcohol level of less than 20 mg/100 ml; G40.909 Epilepsy, unspecified, not intractable, without status epilepticus; F17.210 Nicotine dependence, cigarettes, uncomplicated; Z88.6 Allergy status to analgesic agent; G89.29 Other chronic pain; K29.70 Gastritis, unspecified, without bleeding; K20.9 Esophagitis, unspecified; K31.89 Other diseases of stomach and duodenum

== ENCOUNTER 2017-07-20 10:35 | Day surgery (SDC) | payer MEDICAID ==
[2017-07-20] MEDS ORDERED: Lactated Ringer's 1,000 ML IV ONE ×2 (12:00→12:54)
[2017-07-20] MEDS ORDERED: Propofol 10 mg/ml Inj (20 ML) ONE (12:52)
[2017-07-20] MEDS ORDERED: Lidocaine 2% MPF (5 ml) Inj ONE (12:53)
[2017-07-20 13:22] VITALS: TEMP 97.4
[2017-07-20 13:34] VITALS: BP 108/65; PULSE 79; RESP 15; O2SAT 98
== END 2017-07-20 14:09 | disposition home or self-care (01) ==
LOC: H.ENDO 10:35
PROVIDERS: ATTEND Internal Medicine Gastroenterology
DX: K64.4 Residual hemorrhoidal skin tags (principal); K64.8 Other hemorrhoids; Z80.0 Family history of malignant neoplasm of digestive organs; G40.909 Epilepsy, unspecified, not intractable, without status epilepticus; K74.60 Unspecified cirrhosis of liver
CPT/HCPCS: 45378; J2704; J7120

== ENCOUNTER 2017-08-20 22:46 | Inpatient (IN) | payer MEDICAID ==
--- NOTE | 2017-08-20 22:54 | ED PDOC ---
HPI: General Adult Time Seen by Provider: 08/20/17 22:53 Chief Complaint (Nursing): Seizure Chief Complaint (Provider): head injury History Per: Patient, EMS Additional Complaint(s): 52-year-old male with history of alcohol abuse and seizure disorder presents with headache secondary to head injury. Patient had a seizure at home and fell in his bathroom cracking the toilet tank. The patient got up and then fell again injuring his head a second time. Patient does not remember details of the fall. Patient takes Keppra 500 mg twice daily and states he has been compliant with medications. He did not take his second dose today as of yet. Patient denies any chest pain or shortness of breath upon arrival. He denies any other injuries besides head injury. Patient states he has not had drink and 6 months. PMD: [facility] Past Medical History Reviewed: Historical Data, Nursing Documentation, Vital Signs Vital Signs: Last Vital Signs Temp 98 F 08/20/17 22:49 Pulse 99 H 08/20/17 22:49 Resp 16 08/20/17 22:49 BP 123/80 08/20/17 22:49 Pulse Ox 98 08/21/17 00:24 - Medical History PMH: Anemia, Back Problems (herniated disc), Fractures (left shoulder, Left hand 5th digit), Gastritis, Seizures, Chronic Pain (left shoulder) - Surgical History Surgical History: Endoscopy Other surgeries: Hepatic stent placement, finger injury - Family History Family History: States: No Known Family Hx - Living Arrangements Living Arrangements: With Friends/Others - Social History Current smoker - smoking cessation education provided: Yes Alcohol: Other (states he has not had a drink in 6 months) Drugs: Denies - Immunization History Hx Tetanus Toxoid Vaccination: Yes - Home Medications Home Medications: Ambulatory Orders Medication Instructions Recorded levETIRAcetam [Keppra] 500 mg PO BID 10/16/16 Omeprazole Magnesium [Prilosec Otc] 40 mg PO BID 07/20/17 - Allergies Allergies/Adverse Reactions: Allergies Allergy/AdvReac Type Severity Reaction Status Date / Time aspirin Allergy NAUSEA Verified 08/20/17 22:48 Review of Systems ROS Statement: Except As Marked, All Systems Reviewed And Found Negative Constitutional: Negative for: Fever, Chills Cardiovascular: Negative for: Chest Pain Respiratory: Negative for: Cough Gastrointestinal: Negative for: Vomiting, Abdominal Pain Neurological: Positive for: Seizures, Headache, Other (head injury) Physical Exam - Reviewed Nursing Documentation Reviewed: Yes Vital Signs Reviewed: Yes - Physical Exam Appears: Positive for: Well, Non-toxic, No Acute Distress Head Exam: Positive for: ATRAUMATIC, NORMAL INSPECTION Skin: Negative for: Rash Eye Exam: Positive for: Normal appearance Neck: Positive for: Normal Cardiovascular/Chest: Positive for: Regular Rate, Rhythm Respiratory: Positive for: Normal Breath Sounds Gastrointestinal/Abdominal: Positive for: Soft. Negative for: Tenderness, Distended, Guarding, Rebound Neurologic/Psych: Positive for: Alert, crew leader II-XII (grossly intact), Oriented. Negative for: Motor/Sensory Deficits, Aphasia, Facial Droop - Laboratory Results Result Diagrams: 08/20/17 23:10 08/20/17 23:10 - ECG Interpretation Of ECG: NSR 97 bpm with prolonged QT, reviewed by PA and ED attending O2 Sat by Pulse Oximetry: 98 Pulse Ox Interpretation: Normal - Other Rad CXR X-Ray: Interpreted by Me, Viewed By Me X-Ray Interpretation: no acute finding CT head X-Ray: Read By Radiologist X-Ray Interpretation: no acute finding Medical Decision Making Medical Decision Makin52 year old male here for eval s/p seizure and head injury Plan: CBC CMP Lipase Ammonia Keppra level CXR CT head EKG IVF IV keppra 500 mg BAL: 345 PMD is [facility]. Case was d/w family practice resident who will admit patient to telemetry. Patient is aware of and agrees with admission. Disposition - Clinical Impression Clinical Impression: Seizures, Liver cirrhosis, alcoholic, Chronic alcohol abuse, EtOH dependence, Head injury - Patient ED Disposition Is Patient to be Admitted: Yes - Disposition Disposition Time: 00:29 Condition: FAIR Forms: Qapa (Kinyarwanda) - Pt Status Changed To: Hospital Disposition Of: Inpatient - Admit Certification Admit to Inpatient:: After my assessment, the patient will require hospitalization for at least two midnights. This is because of the severity of symptoms shown, intensity of services needed, and/or the medical risk in this patient being treated as an outpatient. - POA Present On Arrival: None Results - Lab Results Lab Results: 08/20/17 08/20/17 08/20/17 23:10 23:10 23:10 WBC 5.7 RBC 4.22 L Hgb 13.3 D Hct 39.9 MCV 94.6 H D MCH 31.5 H MCHC 33.3 RDW 17.8 H Plt Count 61 L D MPV 7.9 Neut % (Auto) 52.9 Lymph % (Auto) 24.8 Mcdonald % (Auto) 13.5 H Eos % (Auto) 7.8 H Baso % (Auto) 1.0 Neut # (Auto) 3.0 Lymph # (Auto) 1.4 Mcdonald # (Auto) 0.8 Eos # (Auto) 0.4 Baso # (Auto) 0.1 Sodium 151 H Potassium 3.3 L Chloride 109 H Carbon Dioxide 25 Anion Gap 20 BUN 8 L Creatinine 0.7 L Est GFR ( Amer) > 60 Est GFR (Non-Af Amer) > 60 Random Glucose 122 H Calcium 8.2 L Total Bilirubin 5.4 H AST 174 H D ALT 64 Alkaline Phosphatase 207 H D Ammonia 67 H D Total Protein 8.5 H Albumin 3.8 Globulin 4.8 H Albumin/Globulin Ratio 0.8 L Lipase 131 Alcohol, Quantitative 345 H*
[2017-08-20] MEDS ORDERED: Sodium Chloride 0.9% 1,000 ML IV STA (23:02)
[2017-08-20] MEDS ORDERED: levETIRAcetam 500 MG in Sodium Chloride 0.9% 100 ML IVPB STA (23:03)
[2017-08-20 23:39] LABS: ALB/GLOB RATIO 0.8 (1.0-2.1); ALBUMIN 3.8 g/dL (3.5-5.0); ALT/SGPT 64 U/L (21-72); AST/SGOT 174 U/L (17-59); BLOOD UREA NITROGEN 8 mg/dl (9-20); CALCIUM 8.2 mg/dL (8.4-10.2); GFR AFRICAN-AMERICAN > 60; GFR NON-AFRICAN AMERICAN > 60; LIPASE 131 U/L (23-300)
[2017-08-20 23:46] LABS: BASO # 0.1 K/uL (0.0-0.2); EOS # 0.4 K/uL (0.0-0.7); EOS % 7.8 % (0.0-4.0); HEMOGLOBIN 13.3 g/dL (12.0-18.0); LYMPH # 1.4 K/uL (1.0-4.3); LYMPH % 24.8 % (20.0-40.0); MEAN CELL VOLUME 94.6 fl (80.0-94.0); MEAN CORPUSCULAR HEMOGLOBIN 31.5 pg (27.0-31.0); MEAN CORPUSCULAR HGB CONC 33.3 g/dL (33.0-37.0); MEAN PLATELET VOLUME 7.9 fl (7.2-11.7); MONO # 0.8 K/uL (0.0-0.8); MONO % 13.5 % (0.0-10.0); NEUT % 52.9 % (50.0-75.0); NRBC % 0.1 % (0.0-0.0); RBC 4.22 Mil/uL (4.40-5.90); RED CELL DISTRIBUTION WIDTH 17.8 % (11.5-14.5); WHITE BLOOD COUNT 5.7 K/uL (4.8-10.8)
--- NOTE | 2017-08-21 00:12 | CT ---
EXAM: CT Head Without Intravenous Contrast CLINICAL HISTORY: 52 years old, male; Injury or trauma; Injury Seizure x 2; Initial encounter; Concussion / head injury; Consciousness not specified; Patient HX: See phys doc TECHNIQUE: Axial computed tomography images of the head/brain without intravenous contrast. All CT scans at this facility use one or more dose reduction techniques, viz.: automated exposure control; ma/kV adjustment per patient size (including targeted exams where dose is matched to indication; i.e. head); or iterative reconstruction technique. Coronal and sagittal reformatted images were created and reviewed. COMPARISON: CT - HEAD W/O CONTRAST 2016-10-16 10:21 FINDINGS: Brain: Prominence of the sulci and ventricular system consistent with atrophy. Hypodensity in white matter consistent with chronic small vessel disease. No intracranial mass, mass effect, or midline shift. No hemorrhage. Ventricles: No hydrocephalus. Bones/joints: Unremarkable. No acute fracture. Soft tissues: Unremarkable. Sinuses: Right maxillary sinus polyp versus mucus tension cyst. Mastoid air cells: Unremarkable as visualized. No mastoid effusion. IMPRESSION: No acute intracranial abnormality.
--- NOTE | 2017-08-21 00:31 | CP.PCM.HP ---
History of Present Illness - History of Present Illness History of Present Illness: 52 y/o male with a PMHx remarkable for seizures, ETOH Abuse, Hepatic encephalopathy, pancytopenia, coagulopathy, Stage F4 Liver cirrhosis secondary to ETOH abuse presents to [facility] ED complaining of 2 episodes of seizures today as well as hx of fall in bathroom 2/2 to seizure. Pt reports he has been in his general state of good health up till this evening. He was in the bathroom when he had a seizure and collapsed on the toilet, breaking the tank. He is unsure if he hit his head but is complaining of headache and pain overlying his occiput. Unsure of post-ictal phase after 1st seizure. No incontinence during 1st episode. Pt was then found by friend "Mitul", and taken to living room, where he suffered another what sounds like generalized tonic-clonic seizure, again w/o post-ictal confusion and no incontinence, tongue biting. At that point EMS was called and pt was sent to [facility] ED. At bedside, he is AAOx4, and denies any recent ETOH abuse (last drink >6 months ago), and has been adherent with his 500mg BID Keppra regiment. He denies any other complaints. PMD: [facility]. Last seen by PMD at [facility] 04/27/2017 PMHx: ETOH abuse (6 months ago, inconsistent story as per prior admissions), Epilepsy controlled via Keppra 500mg BID Meds: Keppra 500mg PO BID, Folic acid, Thiamine PsurgHx: TIPS in 2014 PHospHx: multiple ED visits for ETOH abuse, Hepatic Encelopathy SocialHx: 7 cigarettes per day since 15, ETOH abuse, and denies illicit drug use -lives in [place] with roommate FamilyHx: Father NH, mother breast cancer, siblings alive, sister recently diagnosed with colon cancer Next of kin: Sister Missy: [phone] Code Status: full code ED Course: Vitals on presentation: T: 98 F, BP: 123/80, HR: 99, RR: 16, POX: 98% RA Pt AAOx4 Labs CBC: Hb improved 13.3 (10.6 in 05/07) CMP: hypernatremia 151, hypokalemia 3.3 Lipase: WNL Serum A Imaging: Noncontrast Head CT: no acute intracranial abnormality (official report) EKG: NSR, 97 BPM, normal axis, borderline LVH, prolonged Qtc. No acute ST changes appreciated as per my interpretation CXR: normal CXR w/o active disease as per my interpretation Meds: 1L NS, IV Keppra 500mg, Reglan, Morphine Present on Admission - Present on Admission Any Indicators Present on Admission: No History of DVT/PE: No History of Uncontrolled Diabetes: No Urinary Catheter: No Decubitus Ulcer Present: No Review of Systems - Constitutional Constitutional: Headache. absent: As Per HPI, Anorexia, Chills, Daytime Sleepiness, Excessive Sweating, Fatigue, Fever, Frequent Falls, Increased Appetite, Lethargy, Malaise, Night Sweats, Snoring, Sleep Apnea, Weight Gain, Weight Loss, Weakness, Other - EENT Eyes: absent: As Per HPI, Blind Spots, Blurred Vision, Change in Vision, Decreased Night Vision, Diplopia, Discharge, Dry Eye, Exophthalmos, Floaters, Irritation, Itchy Eyes, Loss of Peripheral Vision, Pain, Photophobia, Requires Corrective Lenses, Sees Flashes, Spots in Vision, Tunnel Vision, Other Visual Disturbances, Loss of Vision, Other Ears: absent: As Per HPI, Decreased Hearing, Ear Discharge, Ear Pain, Tinnitus, Abnormal Hearing, Disequilibrium, Dizziness, Other Nose/Mouth/Throat: Dry Mouth. absent: As Per HPI, Epistaxis, Nasal Congestion, Nasal Discharge, Nasal Obstruction, Nasal Trauma, Nose Pain, Post Nasal Drip, Sinus Pain, Sinus Pressure, Bleeding Gums, Change in Voice, Dental Pain, Dysphagia, Halitosis, Hoarsness, Lip Swelling, Mouth Lesions, Mouth Pain, Odynophagia, Sore Throat, Throat Swelling, Tongue Swelling, Facial Pain, Neck Pain, Neck Mass, Other - Cardiovascular Cardiovascular: absent: As Per HPI, Acrocyanosis, Chest Pain, Chest Pain at Rest , Chest Pain with Activity, Claudication, Diaphoresis, Dyspnea, Dyspnea on Exertion, Edema, Irregular Heart Rhythm, Pain Radiating to Arm/Neck/Jaw, Leg Edema, Leg Ulcers, Lightheadedness, Orthopnea, Palpitations, Paroxysmal Nocturnal Dyspnea, Pedal Edema, Radiating Pain, Rapid Heart Rate, Slow Heart Rate, Syncope, Other - Respiratory Respiratory: absent: As Per HPI, Cough, Dyspnea, Hemoptysis, Dyspnea on Exertion , Wheezing, Snoring, Stridor, Pain on Inspiration, Chest Congestion, Excessive Mucous Production, Change in Mucous Color, Pain with Coughing, Other - Gastrointestinal Gastrointestinal: absent: As Per HPI, Abdominal Pain, Belching, Bloating, Change in Bowel Habits, Change in Stool Character, Coffee Ground Emesis, Constipation, Cramping, Diarrhea, Dyspepsia, Dysphagia, Early Satiety, Excessive Flatus, Fecal Incontinence, Heartburn, Hematemesis, Hematochezia, Loose Stools, Melena, Nausea, Odynophagia, Temesmus, Vomiting, Other - Genitourinary Genitourinary: absent: As Per HPI, Change in Urinary Stream, Difficulty Urinating, Dysuria, Flank Pain, Hematuria, Pyuria, Nocturia, Urinary Incontinence, Urinary Frequency, Urinary Hesitance, Urinary Urgency, Voiding Freq/Small Amts, Freq UTI, Hx Renal/Bladder Calculi, Hx /Renal Surgery, Bladder Distension, Other - Musculoskeletal Musculoskeletal: absent: As Per HPI, Abnormal Gait, Arthralgias, Atrophy, Back Pain, Deformity, Joint Swelling, Limited Range of Motion, Loss of Height, Muscle Cramps, Muscle Weakness, Myalgias, Neck Pain, Numbness, Radiating Pain into Limb, Stiffness, Tingling, Other - Neurological Neurological: Other (seizure activity ). absent: As Per HPI, Abnormal Gait, Abnormal Hearing, Abnormal Movements, Abnormal Speech, Behavioral Changes, Burning Sensations, Confusion, Convulsions, Disequilibrium, Dizziness, Numbness , Focal Weakness, Frequent Falls, Headaches, Lack of Coordination, Loss of Vision, Memory Loss, Paresthesias, Radicular Pain, Restless Legs, Sensory Deficit, Syncope, Tingling, Tremor, Vertigo, Weakness, Other Visual Disturbances Past Patient History - Infectious Disease Hx of Infectious Diseases: None - Tetanus Immunizations Tetanus Immunization: Unknown - Past Medical History & Family History Past Medical History?: Yes - Past Social History Smoking Status: Current Some Days Smoker Alcohol: Other (states he has not had a drink in 6 months) Drugs: Denies Home Situation {Lives}: Friends - CARDIAC Hx Hypertension: No (Denies as per patient) - PULMONARY Hx Respiratory Disorders: No - NEUROLOGICAL Hx Seizures: Yes - HEENT Hx HEENT Problems: No - RENAL Hx Chronic Kidney Disease: No - ENDOCRINE/METABOLIC Hx Endocrine Disorders: No Hx Diabetes Mellitus Type 2: No - HEMATOLOGICAL/ONCOLOGICAL Hx Anemia: Yes - INTEGUMENTARY Hx Dermatological Problems: No - MUSCULOSKELETAL/RHEUMATOLOGICAL Hx Fractures: Yes (left shoulder, Left hand 5th digit) - GASTROINTESTINAL Hx Gastritis: Yes - PSYCHIATRIC Hx Psychophysiologic Disorder: No Hx Substance Use: No - SURGICAL HISTORY Hx Surgeries: Yes Other/Comment: TIPS - ANESTHESIA Hx Anesthesia: Yes Hx Anesthesia Reactions: No Hx Malignant Hyperthermia: No Meds Allergies/Adverse Reactions: Allergies Allergy/AdvReac Type Severity Reaction Status Date / Time aspirin Allergy NAUSEA Verified 08/20/17 22:48 Physical Exam - Constitutional Appears: Non-toxic, No Acute Distress, Unkempt - Head Exam Head Exam: NORMOCEPHALIC. absent: ATRAUMATIC (edema and tenderness overlying left mastoid.), NORMAL INSPECTION - Eye Exam Eye Exam: Conjunctival injection, EOMI, Scleral icterus. absent: Normal appearance, Nystagmus, PERRL Pupil Exam: absent: Miosis, Mydriatic, NORMAL ACCOMODATION - ENT Exam ENT Exam: Mucous Membranes Dry, TM's Normal Bilaterally. absent: Mucous Membranes Moist, Normal Exam Additional comments: ear canals: b/l without discharge/hemorrhage - Neck Exam Neck exam: Positive for: Full Rom, Normal Inspection. Negative for: Lymphadenopathy, Tenderness - Respiratory Exam Respiratory Exam: Clear to Auscultation Bilateral, NORMAL BREATHING PATTERN. absent: Rales, Rhonchi, Wheezes, Respiratory Distress - Cardiovascular Exam Cardiovascular Exam: REGULAR RHYTHM, RRR, +S1, +S2. absent: Bradycardia, Tachycardia, Gallop, JVD, Rubs, Systolic Murmur - GI/Abdominal Exam GI & Abdominal Exam: Normal Bowel Sounds, Soft. absent: Organomegaly, Pulsatile Mass, Rebound, Rigid, Tenderness - Extremities Exam Extremities exam: Positive for: full ROM, normal capillary refill, normal inspection, pedal pulses present. Negative for: calf tenderness, pedal edema, tenderness - Back Exam Back exam: NORMAL INSPECTION. absent: CVA tenderness (L), CVA tenderness (R) - Neurological Exam Neurological exam: Alert, CN II-XII Intact, Normal Gait, Oriented x3, Reflexes Normal - Psychiatric Exam Psychiatric exam: Normal Affect, Normal Mood - Skin Skin Exam: Dry, Intact, Normal Color, Warm Additional comments: various tattoos diffusely. Results - Vital Signs Recent Vital Signs: Last Vital Signs Temp 98 F 08/20/17 22:49 Pulse 99 H 08/20/17 22:49 Resp 16 08/20/17 22:49 BP 123/80 08/20/17 22:49 Pulse Ox 98 08/21/17 00:30 - Labs Result Diagrams: 08/20/17 23:10 08/20/17 23:10 Labs: Laboratory Results - last 24 hr 08/20/17 08/20/17 08/20/17 23:10 23:10 23:10 WBC 5.7 RBC 4.22 L Hgb 13.3 D Hct 39.9 MCV 94.6 H D MCH 31.5 H MCHC 33.3 RDW 17.8 H Plt Count 61 L D MPV 7.9 Neut % (Auto) 52.9 Lymph % (Auto) 24.8 Vernon % (Auto) 13.5 H Eos % (Auto) 7.8 H Baso % (Auto) 1.0 Neut # (Auto) 3.0 Lymph # (Auto) 1.4 Vernon # (Auto) 0.8 Eos # (Auto) 0.4 Baso # (Auto) 0.1 Sodium 151 H Potassium 3.3 L Chloride 109 H Carbon Dioxide 25 Anion Gap 20 BUN 8 L Creatinine 0.7 L Est GFR ( Amer) > 60 Est GFR (Non-Af Amer) > 60 Random Glucose 122 H Calcium 8.2 L Total Bilirubin 5.4 H AST 174 H D ALT 64 Alkaline Phosphatase 207 H D Ammonia 67 H D Total Protein 8.5 H Albumin 3.8 Globulin 4.8 H Albumin/Globulin Ratio 0.8 L Lipase 131 Alcohol, Quantitative 345 H* Assessment & Plan - Assessment and Plan (Free Text) Assessment: 52 y/o male with a PMHx remarkable for seizures, ETOH Abuse, Hepatic encephalopathy, pancytopenia, coagulopathy, Stage F4 Liver cirrhosis secondary to ETOH abuse admitted for breakthrough seizures, electrolyte derangement, and ETOH intoxication. Plan: 1) Epilepsy/Break Through Seizures/Syncope: -medication nonadherence? intoxication? hypernatremia? 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 -head CT negative -prolactin ordered -glucose wnl -hypernatremic, hypokalemic -s/p 500mg IV keppra -resume home meds -monitor 2) Hypernatremia -151, AAOx4 -Urine osmolality/lytes ordered for etiology -BUN/Cr: wnl -IV D5W with 20mEq K+, 80mls/hr follow up BMP 3) Hypokalemia -3.3 on admission -no EKG changes -supplementing in D5W with 20mEq -recheck BMP 4) ETOH Intoxication -serum ETOH: 345 -IV hydration as ordered -Librium 50mg PRN for withdrawal -f/u serum ETOH level 5) Hyperammonemia -ammonia level: 67 -no encephalopathy/asterexis appreciated -dose of Lactulose -f/u repeat ammonia level 6) Transaminemia -chronic -stable -f/u CMP 7) Stage F4 Liver Cirrhosis 2/2 to ETOH abuse -chronic -monitor -pt being followed by Dr. Bradley, last visit 04/2017, reports he has follow up appt August 27, 2017 8) Thrombocytopenia -chronic -worsened as of 05/12/17 value (94) -Platelets: 61 today -2/2 to stage F4 liver cirrhosis -no anti-coagulation -SCDs/Ambulation with fall risk protocol 9) Prophylaxis -SCDs 10) Diet -altered GI hepatic Diet, low sodium 11) Code Status -full code
[2017-08-21] MEDS ORDERED: Lactulose 10 gm/15 ml Syrup PO ONE (01:07)
[2017-08-21 01:13] VITALS: RESP 18
[2017-08-21] MEDS ORDERED: Potassium Chl 20mEq & D5W 1,000 ML IV SCH (01:15)
[2017-08-21] MEDS ORDERED: Potassium Ch 20mEq in D5W 20 ML in Dextrose 5%/0.45% NS 1,000 ML IV SCH (07:30)
[2017-08-21 08:47] LABS: ALB/GLOB RATIO 0.8 (1.0-2.1); ALT/SGPT 55 U/L (21-72); AST/SGOT 134 U/L (17-59); BLOOD UREA NITROGEN 9 mg/dl (9-20); CALCIUM 7.4 mg/dL (8.4-10.2); GFR AFRICAN-AMERICAN > 60; GFR NON-AFRICAN AMERICAN > 60
[2017-08-21] MEDS ORDERED: Pantoprazole 40 mg EC Tab PO SCH (09:00)
[2017-08-21] MEDS ORDERED: OMEPRAZOLE MAGNESIUM 40 MG PO SCH (09:00)
[2017-08-21] MEDS ORDERED: Potassium Chloride 10 mEq ER Tab PO SCH (09:00)
[2017-08-21] MEDS ORDERED: Multivitamin (MVI) 10 ML, Thiamine 100 MG, Folic Acid 1 MG in Dextrose 5%/0.45% NS 1,00... IV ONE (09:46)
--- NOTE | 2017-08-21 11:17 | CP.PCM.DIS ---
Provider - Provider Date of Admission: 08/21/17 00:25 Attending physician: Chanelle Rowe MD Time Spent in preparation of Discharge (in minutes): 45 Diagnosis - Discharge Diagnosis (1) Seizures Status: Acute Hospital Course - Lab Results Lab Results: Most Recent Lab Values WBC 5.7 K/uL (4.8-10.8) 08/20/17 23:10 RBC 4.22 Mil/uL (4.40-5.90) L 08/20/17 23:10 Hgb 13.3 g/dL (12.0-18.0) D 08/20/17 23:10 Hct 39.9 % (35.0-51.0) 08/20/17 23:10 MCV 94.6 fl (80.0-94.0) H D 08/20/17 23:10 MCH 31.5 pg (27.0-31.0) H 08/20/17 23:10 MCHC 33.3 g/dL (33.0-37.0) 08/20/17 23:10 RDW 17.8 % (11.5-14.5) H 08/20/17 23:10 Plt Count 61 K/uL (130-400) L D 08/20/17 23:10 MPV 7.9 fl (7.2-11.7) 08/20/17 23:10 Neut % (Auto) 52.9 % (50.0-75.0) 08/20/17 23:10 Lymph % (Auto) 24.8 % (20.0-40.0) 08/20/17 23:10 Pettis % (Auto) 13.5 % (0.0-10.0) H 08/20/17 23:10 Eos % (Auto) 7.8 % (0.0-4.0) H 08/20/17 23:10 Baso % (Auto) 1.0 % (0.0-2.0) 08/20/17 23:10 Neut # (Auto) 3.0 K/uL (1.8-7.0) 08/20/17 23:10 Lymph # (Auto) 1.4 K/uL (1.0-4.3) 08/20/17 23:10 Pettis # (Auto) 0.8 K/uL (0.0-0.8) 08/20/17 23:10 Eos # (Auto) 0.4 K/uL (0.0-0.7) 08/20/17 23:10 Baso # (Auto) 0.1 K/uL (0.0-0.2) 08/20/17 23:10 Sodium 150 mmol/l (132-148) H 08/21/17 07:29 Potassium 3.1 MMOL/L (3.6-5.0) L 08/21/17 07:29 Chloride 111 mmol/L (98-107) H 08/21/17 07:29 Carbon Dioxide 25 mmol/L (22-30) 08/21/17 07:29 Anion Gap 17 (10-20) 08/21/17 07:29 BUN 9 mg/dl (9-20) 08/21/17 07:29 Creatinine 0.7 mg/dl (0.8-1.5) L 08/21/17 07:29 Est GFR ( Amer) > 60 08/21/17 07:29 Est GFR (Non-Af Amer) > 60 08/21/17 07:29 Random Glucose 115 mg/dL (75-110) H 08/21/17 07:29 Calcium 7.4 mg/dL (8.4-10.2) L 08/21/17 07:29 Total Bilirubin 4.5 mg/dl (0.2-1.3) H 08/21/17 07:29 AST 134 U/L (17-59) H D 08/21/17 07:29 ALT 55 U/L (21-72) 08/21/17 07:29 Alkaline Phosphatase 166 U/L (38-126) H 08/21/17 07:29 Ammonia 61 umo/L (16-60) H 08/21/17 07:29 Total Protein 7.0 G/DL (6.3-8.2) 08/21/17 07:29 Albumin 3.0 g/dL (3.5-5.0) L D 08/21/17 07:29 Globulin 4.0 gm/dL (2.2-3.9) H 08/21/17 07:29 Albumin/Globulin Ratio 0.8 (1.0-2.1) L 08/21/17 07:29 Lipase 131 U/L (23-300) 08/20/17 23:10 Alcohol, Quantitative 345 mg/dl (0-10) H* 08/20/17 23:10 - Hospital Course Hospital Course: Hospital Course: 52 y/o male with a PMHx remarkable for seizures, ETOH Abuse, Stage F4 Liver cirrhosis presented to [facility] ED stating 2 (unwitnessed) seizure episode symptoms as well as fall 2/2 to seizure. No significant injuries noted, head ct was unremarkable. Pt had elevated serum ETOH level and low K which was repleted. Pt was loaded with Keppra and observed. No new seizure activity was witness during admission. Discharged next day and was offered Keppra RX but pt stated that he just picked up the medication from the pharmacy 1 week ago and declined medication to be sent to pharmacy. Discharge medication: No new RX Condition upon discharge: Fair Activity: Ambulating without assistance Discharge Instruction: F/U with PMD at [facility] (Central Scheduling with call with appt date). Continue taking anti-seizure medication. Discharge Exam - Head Exam Head Exam: NORMOCEPHALIC. absent: ATRAUMATIC (Pt has 3 cm healing laceration on foread. Incision closed, no active bleeding, discharge, or erythema. Appropriate tenderness. ), NORMAL INSPECTION - Eye Exam Eye Exam: Scleral icterus. absent: Conjunctival injection - ENT Exam ENT Exam: Mucous Membranes Moist - Respiratory Exam Respiratory Exam: NORMAL BREATHING PATTERN. absent: Rales, Wheezes, Respiratory Distress - Cardiovascular Exam Cardiovascular Exam: REGULAR RHYTHM, +S1, +S2. absent: Systolic Murmur - GI/Abdominal Exam GI & Abdominal Exam: Distended (Baseline distention given pt's liver disease), Normal Bowel Sounds. absent: Firm, Guarding, Hernia, Rigid, Soft, Tenderness - Neurological Exam Neurological exam: Alert, Oriented x3 - Psychiatric Exam Psychiatric exam: Normal Affect Discharge Plan - Follow Up Plan Condition: FAIR Disposition: HOME/ ROUTINE Instructions: Seizures, Adult (DC), Alcohol Withdrawal (DC) Referrals: [facility] [Provider Group]
--- NOTE | 2017-08-21 11:41 | RAD ---
HISTORY: Seizure COMPARISON: Comparison made with chest radiograph and CTA chest both dated 11/07/2016. FINDINGS: LUNGS: Increased/coarsened interstitial markings with a few scattered peribronchial cuffing changes. Rule out sequela of reactive/inflammatory airway disease or viral illness. PLEURA: No significant pleural effusion identified, no pneumothorax apparent. CARDIOVASCULAR: Normal. OSSEOUS STRUCTURES: No significant abnormalities. VISUALIZED UPPER ABDOMEN: Normal. OTHER FINDINGS: None. IMPRESSION: Increased/coarsened interstitial markings with a few scattered peribronchial cuffing changes. Rule out sequela of reactive/inflammatory airway disease or viral illness.
[2017-08-21 12:10] VITALS: BP 124/64; PULSE 114; TEMP 98.6; O2SAT 97
--- NOTE | 2017-08-23 12:22 | CARD ---
APPROVED REPORT EKG Measurement Heart [id number] <Conclusion> Normal sinus rhythm Possible Left atrial enlargement Prolonged QT Abnormal ECG
== END 2017-08-21 13:57 | disposition home or self-care (01) | DRG 532 ==
LOC: H.ER 22:46 → H.ERHOLD 08-21 00:25 → H.TEL 08-21 02:47
PROVIDERS: ADMIT Family Medicine Geriatric Medicine; ATTEND Family Medicine Geriatric Medicine
DX: G40.909 Epilepsy, unspecified, not intractable, without status epilepticus (principal); K72.90 Hepatic failure, unspecified without coma; D61.818 Other pancytopenia; D68.9 Coagulation defect, unspecified; S09.90XA Unspecified injury of head, initial encounter; K70.30 Alcoholic cirrhosis of liver without ascites; W19.XXXA Unspecified fall, initial encounter; Z79.899 Other long term (current) drug therapy; F10.129 Alcohol abuse with intoxication, unspecified; K29.70 Gastritis, unspecified, without bleeding; F17.210 Nicotine dependence, cigarettes, uncomplicated; Y92.091 Bathroom in other non-institutional residence as the place of occurrence of the external cause

== ENCOUNTER 2017-08-28 05:32 | Emergency (ER) | payer MEDICAID ==
[2017-08-28 06:09] VITALS: RESP 16
[2017-08-28] MEDS ORDERED: levETIRAcetam 500 MG in Sodium Chloride 0.9% 100 ML IV STA (06:16)
--- NOTE | 2017-08-28 06:40 | ED PDOC ---
HPI: Seizure Time Seen by Provider: 08/28/17 05:49 Chief Complaint (Nursing): Seizure Chief Complaint (Provider): Seizure History Per: Patient History/Exam Limitations: no limitations Additional Complaint(s): 52 y/o male with past medical history of seizure disorder presents to the ED for evaluation of seizure. Patient usually takes Keppra 500mg but missed his dose yesterday morning. Girlfriend told him that he had seizure and fell out of the bed hit his left ribcage against dresser. Reports pain when breathing. Reports that he doesnt sleep well. Denies any drug or alcohol use. Denies head injury or any further medical complaints. Past Medical History Reviewed: Historical Data, Nursing Documentation, Vital Signs Vital Signs: Last Vital Signs Temp 97.9 F 08/28/17 08:30 Pulse 98 H 08/28/17 08:30 Resp 16 08/28/17 08:30 BP 108/62 08/28/17 08:30 Pulse Ox 97 08/28/17 09:35 - Medical History PMH: Anemia, Back Problems (herniated disc), Fractures (left shoulder, Left hand 5th digit), Gastritis, Seizures, Chronic Pain (left shoulder) Denies: HTN (Denies as per patient), Migraine, Pancreatitis (patient denies) , Parkinson's Disease, Chronic Kidney Disease - Surgical History Surgical History: Endoscopy - Family History Family History: States: Unknown Family Hx - Social History Current smoker - smoking cessation education provided: Yes (some days smoker) Alcohol: Other (Yes) Drugs: Denies - Immunization History Hx Tetanus Toxoid Vaccination: Yes - Home Medications Home Medications: Ambulatory Orders Medication Instructions Recorded levETIRAcetam [Keppra] 500 mg PO BID 10/16/16 Omeprazole Magnesium [Prilosec Otc] 40 mg PO BID 07/20/17 Naproxen [Naprosyn] 500 mg PO Q12H #20 tab 08/28/17 - Allergies Allergies/Adverse Reactions: Allergies Allergy/AdvReac Type Severity Reaction Status Date / Time aspirin Allergy NAUSEA Verified 08/28/17 17:32 Review of Systems ROS Statement: Except As Marked, All Systems Reviewed And Found Negative (As per HPI, otherwise negative) Neurological: Positive for: Seizures Physical Exam - Reviewed Nursing Documentation Reviewed: Yes Vital Signs Reviewed: Yes - Physical Exam Appears: Positive for: Well, Non-toxic, No Acute Distress Head Exam: Positive for: ATRAUMATIC, NORMAL INSPECTION, NORMOCEPHALIC Skin: Positive for: Normal Color, Warm, Dry Eye Exam: Positive for: EOMI, Normal appearance, PERRL ENT: Positive for: Normal ENT Inspection Neck: Positive for: Normal, Painless ROM, Supple Cardiovascular/Chest: Positive for: Regular Rate, Rhythm, Other (Bruising to his third and fourth ribcage mid axillary point tenderness, no crepitus or step off noted). Negative for: Murmur Respiratory: Positive for: Normal Breath Sounds. Negative for: Accessory Muscle Use, Respiratory Distress Gastrointestinal/Abdominal: Positive for: Normal Exam, Bowel Sounds, Soft. Negative for: Tenderness Back: Positive for: Normal Inspection Extremity: Positive for: Normal ROM. Negative for: Deformity Neurologic/Psych: Positive for: Alert, commercial retoucher II-XII, Oriented (x3). Negative for : Motor/Sensory Deficits - Laboratory Results Result Diagrams: 08/28/17 05:20 08/28/17 05:20 - ECG O2 Sat by Pulse Oximetry: 100 Medical Decision Making Medical Decision Making: Time: 06:16 Initial Impression: seizure in setting on non compliance and rib contusion Plan: Alcohol serum BMP Drug screen CBC w/ differential Levetiracetam Flexeril 10mg pO Sodium chloride 1L IV Toradol 30mg IVP Urinalysis Reevaluation [address] Sousa pending xray, labs, and re-eval. Scribe Attestation: Documented by Parker Rangel acting as a scribe for Murphy Chiu MD. Scribe Attestation: All medical record entries made by the Scribe were at my direction and personally dictated by me. I have reviewed the chart and agree that the record accurately reflects my personal performance of the history, physical exam, medical decision making, and the department course for this patient. I have also personally directed, reviewed, and agree with the discharge instructions and disposition. Disposition - Clinical Impression Clinical Impression: Seizure disorder, Rib contusion - Patient ED Disposition Is Patient to be Admitted: Transfer of Care - Disposition Referrals: [facility] [Outside] Disposition: Transfer of Care Disposition Time: 07:00 Condition: STABLE Prescriptions: Naproxen [Naprosyn] 500 mg PO Q12H #20 tab Instructions: Seizures, Adult (DC), Bruised Rib Forms: [employer]ango (Monegasque) Patient Signed Over To: Jonathan Sousa Handoff Comments: pending xray, CT, and re-eval
[2017-08-28 07:04] LABS: BASO # 0.1 K/uL (0.0-0.2); BASO % 3.3 % (0.0-2.0); EOS # 0.2 K/uL (0.0-0.7); EOS % 4.3 % (0.0-4.0); HEMOGLOBIN 10.5 g/dL (12.0-18.0); LYMPH # 0.7 K/uL (1.0-4.3); LYMPH % 17.4 % (20.0-40.0); MEAN CELL VOLUME 94.6 fl (80.0-94.0); MEAN CORPUSCULAR HEMOGLOBIN 31.6 pg (27.0-31.0); MEAN CORPUSCULAR HGB CONC 33.4 g/dL (33.0-37.0); MEAN PLATELET VOLUME 7.4 fl (7.2-11.7); MONO # 0.3 K/uL (0.0-0.8); MONO % 8.2 % (0.0-10.0); NEUT # 2.6 K/uL (1.8-7.0); NEUT % 66.8 % (50.0-75.0); NRBC % 0.1 % (0.0-0.0); PLATELET COUNT 51 K/uL (130-400); RBC 3.31 Mil/uL (4.40-5.90); RED CELL DISTRIBUTION WIDTH 17.4 % (11.5-14.5); WHITE BLOOD COUNT 3.8 K/uL (4.8-10.8)
[2017-08-28 07:16] LABS: BLOOD UREA NITROGEN 16 mg/dl (9-20); CALCIUM 8.3 mg/dL (8.4-10.2); GFR AFRICAN-AMERICAN > 60; GFR NON-AFRICAN AMERICAN > 60
[2017-08-28 09:26] LABS: ANISOCYTOSIS SLIGHT; BASOPHIL 2 % (0-2); EOSINOPHIL 4 % (0-7); LYMPHOCYTE 19 % (20-50); MONOCYTE 7 % (0-10); NEUTROPHIL 68 % (42-75); OVALOCYTES SLIGHT; PLATELET ESTIMATE DECREASED (NORMAL); POIKILOCYTOSIS SLIGHT; TOTAL CELLS COUNTED 100
[2017-08-28 09:30] VITALS: BP 108/62; PULSE 98; TEMP 97.9
--- NOTE | 2017-08-28 09:31 | RAD ---
PROCEDURE: Radiographs of the Chest and Left Ribs. HISTORY: s/p fall COMPARISON: None available. TECHNIQUE: Frontal radiograph of the chest and multiple oblique radiographs of the left ribs were obtained. FINDINGS: LEFT RIBS: No fracture or focal lesion visualized. LUNGS: Clear. PLEURA: No pneumothorax or pleural fluid. CARDIOVASCULAR: Normal sized heart. No pulmonary vascular congestion. OTHER FINDINGS: None. IMPRESSION: Unremarkable radiographs of the chest and left ribs. No left rib fracture.
--- NOTE | 2017-08-28 09:36 | ED PDOC ---
- Laboratory Results Result Diagrams: 08/28/17 05:20 08/28/17 05:20 - ECG O2 Sat by Pulse Oximetry: 97 Disposition - Clinical Impression Clinical Impression: Seizure disorder, Rib contusion - POA Present On Arrival: None - Disposition Referrals: [facility] [Outside] Disposition: Routine/Home Disposition Time: 09:35 Prescriptions: Naproxen [Naprosyn] 500 mg PO Q12H #20 tab Instructions: Seizures, Adult (DC), Bruised Rib Forms: [employer] (Maori)
[2017-08-29 01:41] VITALS: O2SAT 100
== END 2017-08-28 10:02 | disposition home or self-care (01) ==
LOC: H.ER 05:32
DX: G40.909 Epilepsy, unspecified, not intractable, without status epilepticus (principal); S20.219A Contusion of unspecified front wall of thorax, initial encounter; W06.XXXA Fall from bed, initial encounter; Y92.003 Bedroom of unspecified non-institutional (private) residence as the place of occurrence of the external cause; G20 Parkinson's disease; Z91.14 Patient's other noncompliance with medication regimen; Z91.19 Patient's noncompliance with other medical treatment and regimen
CPT/HCPCS: 71101; 80048; 80299; 80320; 85025; 96374; 99285; J1885; J1953

== ENCOUNTER 2017-08-28 17:30 | Emergency (ER) | payer MEDICAID ==
[2017-08-28 17:35] VITALS: RESP 16
[2017-08-28] MEDS ORDERED: Sodium Chloride 0.9% 1,000 ML IV STA (17:56)
--- NOTE | 2017-08-28 18:00 | ED PDOC ---
HPI: General Adult Time Seen by Provider: 08/28/17 17:50 Chief Complaint (Nursing): Seizure Chief Complaint (Provider): seizure, etoh History Per: Patient Additional Complaint(s): Patient is ambulatory into the emergency department for evaluation of seizure that occurred earlier this afternoon. Patient has history of alcohol abuse and seizure disorder. He was seen earlier this morning after having a seizure overnight. He was given a dose of IV Keppra. Patient injured left rib region secondary to seizure earlier and had x-rays completed which were negative for fracture. He presents this evening stating that he took 2 shots and drank 2 beers prior to arrival. Patient denies head injury or loss of consciousness. Patient admits to being noncompliant with his keppra. Past Medical History Reviewed: Historical Data, Nursing Documentation, Vital Signs Vital Signs: Last Vital Signs Temp 98.0 F 08/28/17 17:32 Pulse 65 08/28/17 17:32 Resp 16 08/28/17 17:32 BP 133/80 08/28/17 17:32 Pulse Ox 100 08/28/17 18:07 - Medical History PMH: Anemia, Back Problems (herniated disc), Gastritis, Seizures, Chronic Pain ( left shoulder) - Surgical History Surgical History: Endoscopy Other surgeries: left hand fracture repair - Family History Family History: States: No Known Family Hx - Living Arrangements Living Arrangements: With Family - Social History Current smoker - smoking cessation education provided: Yes Alcohol: > 2 Drinks/Day Drugs: Denies - Immunization History Hx Tetanus Toxoid Vaccination: Yes - Home Medications Home Medications: Ambulatory Orders Medication Instructions Recorded levETIRAcetam [Keppra] 500 mg PO BID 10/16/16 Omeprazole Magnesium [Prilosec Otc] 40 mg PO BID 07/20/17 Naproxen [Naprosyn] 500 mg PO Q12H #20 tab 08/28/17 - Allergies Allergies/Adverse Reactions: Allergies Allergy/AdvReac Type Severity Reaction Status Date / Time aspirin Allergy NAUSEA Verified 08/28/17 17:32 Review of Systems ROS Statement: Except As Marked, All Systems Reviewed And Found Negative Constitutional: Negative for: Fever Cardiovascular: Negative for: Chest Pain Respiratory: Negative for: Cough Gastrointestinal: Negative for: Nausea, Vomiting, Abdominal Pain, Diarrhea Neurological: Positive for: Seizures Psych: Positive for: Other (etoh) Physical Exam - Reviewed Nursing Documentation Reviewed: Yes Vital Signs Reviewed: Yes - Physical Exam Appears: Positive for: Well, Non-toxic, No Acute Distress Head Exam: Positive for: ATRAUMATIC, NORMAL INSPECTION Skin: Negative for: Rash Eye Exam: Positive for: Normal appearance Neck: Positive for: Normal Cardiovascular/Chest: Positive for: Regular Rate, Rhythm, Other (Diffuse tenderness left lateral chest wall with no palpable bony deformity) Respiratory: Positive for: Normal Breath Sounds. Negative for: Wheezing, Respiratory Distress Gastrointestinal/Abdominal: Positive for: Soft. Negative for: Tenderness Neurologic/Psych: Positive for: Alert, Oriented, Gait (steady), Other (no post ictal state noted) - ECG O2 Sat by Pulse Oximetry: 100 Pulse Ox Interpretation: Normal Medical Decision Making Medical Decision Makin-year-old male with history of alcohol abuse and seizure disorder. Patient is ambulatory with steady gait into ED. He was seen earlier this morning. Labs resulted earlier were reviewed. Patient does not appear to be post ictal upon arrival. Patient received 500 mg IV keppra this AM. Plan: BAL Keppra 500 mg PO Glucose POC BAL is 174. Fingerstick: 92. 7:40 pm: Patient is awake, alert, has steady gait. Patient states he has ample supply of Keppra at home and was instructed to take meds twice a day as prescribed. Advised PMD follow-up. Disposition - Clinical Impression Clinical Impression: Seizure, Alcohol abuse - Patient ED Disposition Is Patient to be Admitted: No Counseled Patient/Family Regarding: Need For Followup - Disposition Referrals: [facility] [Outside] Disposition: Routine/Home Disposition Time: 19:42 Condition: STABLE Additional Instructions: Take Keppra twice daily as prescribed. Follow up with primary doctor. Instructions: Alcohol Abuse and Alcoholism (DC), Seizures Forms: [employer] (Georgian)
[2017-08-28 19:46] VITALS: BP 131/71; PULSE 78; TEMP 98.2; O2SAT 97
== END 2017-08-28 19:47 | disposition home or self-care (01) ==
LOC: H.ER 17:30
DX: G40.909 Epilepsy, unspecified, not intractable, without status epilepticus (principal); F10.10 Alcohol abuse, uncomplicated; G89.29 Other chronic pain; Z91.14 Patient's other noncompliance with medication regimen

== ENCOUNTER 2017-08-29 05:46 | Emergency (ER) | payer MEDICAID ==
[2017-08-29 06:01] VITALS: RESP 19; O2SAT 98
--- NOTE | 2017-08-29 07:25 | ED PDOC ---
HPI: General Adult Time Seen by Provider: 08/29/17 07:03 Chief Complaint (Nursing): Chest Pain Chief Complaint (Provider): Rib Pain History Per: Patient History/Exam Limitations: no limitations Onset/Duration Of Symptoms: Days (x since yesterday) Additional Complaint(s): Mr. Pritchett is a 52 year old male who presents to the ED for left-sided rib pain. Patient was seen twice yesterday for the same complaint. Patient had X- rays done. PMD: No Family Provider Past Medical History Reviewed: Historical Data, Nursing Documentation, Vital Signs Vital Signs: Last Vital Signs Temp 97 F L 08/29/17 10:05 Pulse 79 08/29/17 10:05 Resp 19 08/29/17 10:05 BP 120/83 08/29/17 10:05 Pulse Ox 98 08/29/17 10:05 - Medical History PMH: Anemia, Back Problems (herniated disc), Fractures (left shoulder, Left hand 5th digit), Gastritis, Seizures, Chronic Pain (left shoulder) Denies: HTN (Denies as per patient), Migraine, Pancreatitis (patient denies) , Parkinson's Disease, Chronic Kidney Disease - Surgical History Surgical History: Endoscopy - Family History Family History: States: Unknown Family Hx - Immunization History Hx Tetanus Toxoid Vaccination: Yes - Home Medications Home Medications: Ambulatory Orders Medication Instructions Recorded levETIRAcetam [Keppra] 500 mg PO BID 10/16/16 Naproxen [Naprosyn] 500 mg PO Q12H #20 tab 08/28/17 traMADol [Ultram] 50 mg PO TID PRN #6 tab 08/30/17 Lactulose [Generlac] 30 ml PO TID 08/31/17 Omeprazole [Omeprazole] 40 mg PO BID 08/31/17 - Allergies Allergies/Adverse Reactions: Allergies Allergy/AdvReac Type Severity Reaction Status Date / Time aspirin Allergy NAUSEA Verified 08/29/17 18:18 Review of Systems ROS Statement: Except As Marked, All Systems Reviewed And Found Negative Cardiovascular: Positive for: Other (Left-sided rib pain) Physical Exam - Reviewed Nursing Documentation Reviewed: Yes Vital Signs Reviewed: Yes - Physical Exam Appears: Positive for: Well (Sleeping comfortably) Cardiovascular/Chest: Positive for: Regular Rate, Rhythm, Other (Tenderness rib area with no deformity, ecchymosis or crepitus) Respiratory: Positive for: Normal Breath Sounds. Negative for: Respiratory Distress Neurologic/Psych: Positive for: Alert, Oriented (x 3). Negative for: Motor/ Sensory Deficits - ECG O2 Sat by Pulse Oximetry: 98 (RA) Pulse Ox Interpretation: Normal Medical Decision Making Medical Decision Making: Time: 07:19 Impression(s): Rib pain, Musculoskeletal pain Plan: - Alcohol Serum Stat - Keppra 500 mg PO STAT Scribe Attestation: Documented by Foster Romero, acting as a scribe for Luisana Escalante MD Provider Scribe Attestation: All medical record entries made by the Scribe were at my direction and personally dictated by me. I have reviewed the chart and agree that the record accurately reflects my personal performance of the history, physical exam, medical decision making, and the department course for this patient. I have also personally directed, reviewed, and agree with the discharge instructions and disposition. Disposition - Clinical Impression Clinical Impression: Rib contusion - Patient ED Disposition Is Patient to be Admitted: No - Disposition Referrals: [facility] [Outside] Disposition: Routine/Home Disposition Time: 10:00 Condition: GOOD Instructions: Bruised Rib Forms: Shozu (Scottish)
[2017-08-29 10:07] VITALS: BP 120/83; PULSE 79; TEMP 97
== END 2017-08-29 10:07 | disposition home or self-care (01) ==
LOC: H.ER 05:46
DX: S20.212A Contusion of left front wall of thorax, initial encounter (principal); X58.XXXA Exposure to other specified factors, initial encounter

== ENCOUNTER 2017-08-29 13:06 | Emergency (ER) | payer MEDICAID ==
[2017-08-29 13:12] VITALS: BP 131/73; PULSE 113; RESP 16; TEMP 98; O2SAT 97
== END 2017-08-29 13:40 | disposition left against medical advice (07) ==
LOC: H.ER 13:06
DX: Z02.89 Encounter for other administrative examinations (principal)

== ENCOUNTER 2017-08-29 16:50 | Emergency (ER) | payer MEDICAID | END 2017-08-29 18:41 | disposition left against medical advice (07) | LOC: H.ER 16:50 | DX: Z02.89 Encounter for other administrative examinations (principal) ==

== ENCOUNTER 2017-08-30 18:38 | Emergency (ER) | payer MEDICAID ==
[2017-08-30 18:45] VITALS: RESP 16
--- NOTE | 2017-08-30 19:30 | ED PDOC ---
HPI: General Adult Time Seen by Provider: 08/30/17 19:16 Chief Complaint (Nursing): Rib Injury Chief Complaint (Provider): Chest and abdomen injury History Per: Patient History/Exam Limitations: no limitations Onset/Duration Of Symptoms: Days (x5) Current Symptoms Are (Timing): Still Present Additional Complaint(s): Shreyas Sepulveda is a 52 year old male, with a past medical history of alcohol abuse, seizure disorder, liver cirrhosis and DVT, who presents to the emergency department complaining of left sided chest pain and left flank pain onset for x5 days. Patient reports he slipped on ice and fell to the ground on his left side also hitting his head with a bruise noted afterwards. He is also complaining of left knee pain but was able to ambulate for 5 days. Patient did not take any medication and states he is allergic to Aspirin and would prefer opiods. He denies any chest pain or shortness of breath. No further medical complaints. PMD: [facility]. Past Medical History Reviewed: Historical Data, Nursing Documentation, Vital Signs Vital Signs: Last Vital Signs Temp 97.6 F 08/30/17 18:43 Pulse 107 H 08/30/17 18:43 Resp 16 08/30/17 18:43 BP 118/67 08/30/17 18:43 Pulse Ox 100 08/30/17 21:24 - Medical History PMH: Anemia, Back Problems (herniated disc), Deep Vein Thrombosis, Fractures ( left shoulder, Left hand 5th digit), Gastritis, Seizures, Chronic Pain (left shoulder) Denies: HTN (Denies as per patient), Migraine, Pancreatitis (patient denies) , Parkinson's Disease, Chronic Kidney Disease Other PMH: Liver cirrhosis, GI bleed - Surgical History Surgical History: Endoscopy Other surgeries: Orthopedic surgeries - Family History Family History: States: Unknown Family Hx - Social History Current smoker - smoking cessation education provided: Yes Alcohol: Occasional Drugs: Denies - Immunization History Hx Tetanus Toxoid Vaccination: Yes - Home Medications Home Medications: Ambulatory Orders Medication Instructions Recorded levETIRAcetam [Keppra] 500 mg PO BID 10/16/16 Omeprazole Magnesium [Prilosec Otc] 40 mg PO BID 07/20/17 Naproxen [Naprosyn] 500 mg PO Q12H #20 tab 08/28/17 traMADol [Ultram] 50 mg PO TID PRN #6 tab 08/30/17 - Allergies Allergies/Adverse Reactions: Allergies Allergy/AdvReac Type Severity Reaction Status Date / Time aspirin Allergy NAUSEA Verified 08/29/17 18:18 Review of Systems ROS Statement: Except As Marked, All Systems Reviewed And Found Negative Cardiovascular: Negative for: Chest Pain Respiratory: Negative for: Shortness of Breath Musculoskeletal: Positive for: Back Pain (left flank pain.), Leg Pain (left knee ) Physical Exam - Reviewed Nursing Documentation Reviewed: Yes Vital Signs Reviewed: Yes - Physical Exam Appears: Positive for: Non-toxic Head Exam: Positive for: ATRAUMATIC, NORMAL INSPECTION, NORMOCEPHALIC Skin: Positive for: Normal Color, Warm, Dry Eye Exam: Positive for: Normal appearance, EOMI, PERRL Neck: Positive for: Painless ROM, Supple Cardiovascular/Chest: Positive for: Regular Rate, Rhythm. Negative for: Chest Non Tender (Chest wall tenderness on left side. No ecchymosis or crepitus), Murmur Respiratory: Positive for: Normal Breath Sounds. Negative for: Respiratory Distress Gastrointestinal/Abdominal: Positive for: Normal Exam, Tenderness (RUQ no ecchymosis.) Back: Positive for: Normal Inspection. Negative for: L CVA Tenderness, R CVA Tenderness Extremity: Positive for: Normal ROM (Lower and upper extremities.). Negative for: Tenderness, Deformity, Swelling Neurologic/Psych: Positive for: Alert, Oriented - ECG O2 Sat by Pulse Oximetry: 100 (RA) Pulse Ox Interpretation: Normal Medical Decision Making Medical Decision Making: Initial Impression: Chest and abdominal blunt injury, head injury s/p fall. Alcohol intoxication. Rule out intracranial bleeding, rib fracture, and intra abdominal injury/bleeding. Initial Plan: --Abd & Pelvis w/o PO or IV cont [CT] --Head w/o contrast [CT] --EKG --Alcohol serum --Ultram 50 mg PO --Ribs LEFT & PA Chest [RAD] --Reevaluation 21:[address] FINDINGS: Limitations: Motion artifact - mild. Brain: Mild atrophy. No definite intracranial hemorrhage. No mass. Several scattered foci of decreased attenuation within periventricular/subcortical white matter. No definite edema. Ventricles: No hydrocephalus. Bones/joints: No acute fracture. Soft tissues: Unremarkable. Sinuses: Scattered minimal mucosal thickening. Few retention cysts. Mastoid air cells: No mastoid effusion. Orbits: Unremarkable as visualized. IMPRESSION: 1. No definite intracranial hemorrhage. 2. Nonspecific white matter changes. 3. Incidental/non-acute findings are described above. 21:20 CT abdomen FINDINGS: Limitations: Lack of intravenous contrast. Motion artifact - mild. Lower thorax: Minimal atelectasis/scarring. Mild mural thickening vs underdistention of distal esophagus. ABDOMEN: Liver: Lobulated contour. Gallbladder and bile ducts: Calcified gallstones. No significant ductal dilation. Pancreas: Unremarkable. No ductal dilation. Spleen: Moderately enlarged. Adrenals: No mass. Kidneys and ureters: No renal calculi. Probable 1.1 x 0.9 x 0.6 cm hyperdense LEFT renal cyst (< 3.0 cm, homogeneous, > 70 HU). No hydronephrosis. Stomach and bowel: No definite mural thickening. No obstruction. Appendix: No findings to suggest acute appendicitis. PELVIS: Bladder: Unremarkable. No stones. Reproductive: Unremarkable as visualized. ABDOMEN and PELVIS: Intraperitoneal space: No significant fluid collection. No free air. Bones/joints: Fracture left 10th, 11th and 12th ribs. Soft tissues: [id number] focal stranding subcutaneous tissues along left hip. Vasculature: Mild to moderate atherosclerotic disease of aorta and iliac arteries. No aneurysm. Several varices within upper abdomen. TIPS. Lymph nodes: No pathologically enlarged lymph nodes. IMPRESSION: 1. No definite noncontrast CT evidence of visceral injury. 2. Left rib fractures. 3. Cirrhosis with portal hypertension. 4. Incidental/non-acute findings are described above. Scribe Attestation: Documented by Giovany Puri, acting as a scribe for Cathy Salazar MD. Provider Scribe Attestation: All medical record entries made by the Scribe were at my direction and personally dictated by me. I have reviewed the chart and agree that the record accurately reflects my personal performance of the history, physical exam, medical decision making, and the department course for this patient. I have also personally directed, reviewed, and agree with the discharge instructions and disposition. Disposition - Clinical Impression Clinical Impression: Rib fracture, Head injury - Patient ED Disposition Is Patient to be Admitted: No Doctor Will See Patient In The: Office Counseled Patient/Family Regarding: Studies Performed, Diagnosis, Need For Followup - Disposition Referrals: [facility] [Outside] Disposition: Routine/Home Disposition Time: 22:54 Condition: GOOD Additional Instructions: Take naproxen for pain. Follow up with your PCP in 2-3 days. Prescriptions: traMADol [Ultram] 50 mg PO TID PRN #6 tab PRN Reason: Pain, Severe (8-10) Instructions: Rib Fractures in Adults, How to Use an Incentive Spirometer, Closed Head Injury (DC)
--- NOTE | 2017-08-30 21:05 | CT ---
EXAM: CT Head Without Intravenous Contrast CLINICAL HISTORY: 52 years old, male; Injury or trauma; Fall; Initial encounter; Concussion / head injury; Consciousness not specified TECHNIQUE: Axial computed tomography images of the head/brain without intravenous contrast. All CT scans at this facility use one or more dose reduction techniques, viz.: automated exposure control; ma/kV adjustment per patient size (including targeted exams where dose is matched to indication; i.e. head); or iterative reconstruction technique. Coronal and sagittal reformatted images were created and reviewed. COMPARISON: CT - HEAD W/O CONTRAST 2017-08-20 23:57 FINDINGS: Limitations: Motion artifact - mild. Brain: Mild atrophy. No definite intracranial hemorrhage. No mass. Several scattered foci of decreased attenuation within periventricular/subcortical white matter. No definite edema. Ventricles: No hydrocephalus. Bones/joints: No acute fracture. Soft tissues: Unremarkable. Sinuses: Scattered minimal mucosal thickening. Few retention cysts. Mastoid air cells: No mastoid effusion. Orbits: Unremarkable as visualized. IMPRESSION: 1. No definite intracranial hemorrhage. 2. Nonspecific white matter changes. 3. Incidental/non-acute findings are described above.
--- NOTE | 2017-08-30 21:20 | CT ---
EXAM: CT Abdomen and Pelvis Without Intravenous Contrast CLINICAL HISTORY: 52 years old, male; Pain and injury or trauma; Fall; Initial encounter; Blunt; Luq; Abdominal pain; Flank; Left; Injury details: Patient states: He fell last week; Additional info: Left flank pain sp fall TECHNIQUE: Axial computed tomography images of the abdomen and pelvis without intravenous contrast. All CT scans at this facility use one or more dose reduction techniques, viz.: automated exposure control; ma/kV adjustment per patient size (including targeted exams where dose is matched to indication; i.e. head); or iterative reconstruction technique. Coronal and sagittal reformatted images were created and reviewed. COMPARISON: CT - LIVER PROTOCOL TRIPLE PHASE 2017-04-21 11:21 FINDINGS: Limitations: Lack of intravenous contrast. Motion artifact - mild. Lower thorax: Minimal atelectasis/scarring. Mild mural thickening vs underdistention of distal esophagus. ABDOMEN: Liver: Lobulated contour. Gallbladder and bile ducts: Calcified gallstones. No significant ductal dilation. Pancreas: Unremarkable. No ductal dilation. Spleen: Moderately enlarged. Adrenals: No mass. Kidneys and ureters: No renal calculi. Probable 1.1 x 0.9 x 0.6 cm hyperdense LEFT renal cyst (< 3.0 cm, homogeneous, > 70 HU). No hydronephrosis. Stomach and bowel: No definite mural thickening. No obstruction. Appendix: No findings to suggest acute appendicitis. PELVIS: Bladder: Unremarkable. No stones. Reproductive: Unremarkable as visualized. ABDOMEN and PELVIS: Intraperitoneal space: No significant fluid collection. No free air. Bones/joints: Fracture left 10th, 11th and 12th ribs. Soft tissues: [id number] focal stranding subcutaneous tissues along left hip. Vasculature: Mild to moderate atherosclerotic disease of aorta and iliac arteries. No aneurysm. Several varices within upper abdomen. TIPS. Lymph nodes: No pathologically enlarged lymph nodes. IMPRESSION: 1. No definite noncontrast CT evidence of visceral injury. 2. Left rib fractures. 3. Cirrhosis with portal hypertension. 4. Incidental/non-acute findings are described above.
[2017-08-30 23:13] VITALS: BP 115/70; PULSE 99; TEMP 98; O2SAT 99
--- NOTE | 2017-08-31 09:30 | RAD ---
PROCEDURE: Radiographs of the Chest and Left Ribs. HISTORY: rib pain fall COMPARISON: None available. TECHNIQUE: Frontal radiograph of the chest and multiple oblique radiographs of the left ribs were obtained. FINDINGS: LEFT RIBS: Old left lateral 9th rib fracture. LUNGS: Clear. PLEURA: No pneumothorax or pleural fluid. CARDIOVASCULAR: Normal sized heart. No pulmonary vascular congestion. OTHER FINDINGS: TIPS stent. IMPRESSION: Old left lateral 9th rib fracture. No definite acute rib fracture.
--- NOTE | 2017-08-31 12:41 | CARD ---
APPROVED REPORT EKG Measurement Heart [id number] <Conclusion> Sinus rhythm with marked sinus arrhythmia Possible Left atrial enlargement Borderline ECG
== END 2017-08-30 23:13 | disposition home or self-care (01) ==
LOC: H.ER 18:38
DX: S22.32XA Fracture of one rib, left side, initial encounter for closed fracture (principal); S09.90XA Unspecified injury of head, initial encounter; S22.42XA Multiple fractures of ribs, left side, initial encounter for closed fracture; F17.200 Nicotine dependence, unspecified, uncomplicated; G40.909 Epilepsy, unspecified, not intractable, without status epilepticus; G89.29 Other chronic pain; K74.60 Unspecified cirrhosis of liver; K76.6 Portal hypertension; Z86.718 Personal history of other venous thrombosis and embolism; W00.0XXA Fall on same level due to ice and snow, initial encounter

== ENCOUNTER 2017-08-31 16:49 | Emergency (ER) | payer MEDICAID ==
[2017-08-31 17:07] VITALS: BP 112/57; PULSE 123; RESP 18; TEMP 98.1; O2SAT 100
[2017-08-31] MEDS ORDERED: Sodium Chloride 0.9% 1,000 ML IV STA (17:32)
--- NOTE | 2017-08-31 17:34 | ED PDOC ---
HPI: Seizure Chief Complaint (Nursing): Lower Extremity Problem/Injury Additional Complaint(s): 52yo M with PMHx seizure and left rib fx. Seizure 30-60 minutes ago at sisters house, witnessed by sister, pt declines to have sister contacted. +LOC, confusion after seizure episode. Denies nausea, vomiting. Left wrist pain and left lateral thigh pain after seizure. Able to walk to the ED after seizure episode. Denies swelling, meds taken for pain. Neuro Dr. Kaur last seen with rec to increase keppra from 500mg to 750mg BID, pt states he is still taking 500mg BID, no FU scheduled. Last [facility] ED visit 1 day ago for workup on fall with CT head negative, CT chest show left rib fractures, no acute EKG changes and CXR showing left rib fracture as well. Drinking liquids. Didnt eat today. Denies drug use. PCP: [facility] Past Medical History Reviewed: Historical Data, Nursing Documentation, Vital Signs Vital Signs: Last Vital Signs Temp 98.1 F 08/31/17 17:04 Pulse 123 H 08/31/17 17:04 Resp 18 08/31/17 17:04 BP 112/57 L 08/31/17 17:04 Pulse Ox 100 08/31/17 20:16 - Medical History PMH: Anemia, Back Problems (herniated disc), Deep Vein Thrombosis, Fractures ( left shoulder, Left hand 5th digit), Gastritis, Seizures, Chronic Pain (left shoulder) Denies: HTN (Denies as per patient), Migraine, Pancreatitis (patient denies) , Parkinson's Disease, Chronic Kidney Disease - Surgical History Surgical History: Endoscopy - Family History Family History: States: Unknown Family Hx - Immunization History Hx Tetanus Toxoid Vaccination: Yes - Home Medications Home Medications: Ambulatory Orders Medication Instructions Recorded levETIRAcetam [Keppra] 500 mg PO BID 10/16/16 Naproxen [Naprosyn] 500 mg PO Q12H #20 tab 08/28/17 traMADol [Ultram] 50 mg PO TID PRN #6 tab 08/30/17 Lactulose [Generlac] 30 ml PO TID 08/31/17 Omeprazole [Omeprazole] 40 mg PO BID 08/31/17 - Allergies Allergies/Adverse Reactions: Allergies Allergy/AdvReac Type Severity Reaction Status Date / Time aspirin Allergy NAUSEA Verified 08/29/17 18:18 Review of Systems ROS Statement: Except As Marked, All Systems Reviewed And Found Negative Musculoskeletal: Positive for: Hand Pain (left), Leg Pain (left thigh) Neurological: Positive for: Seizures Physical Exam - Reviewed Nursing Documentation Reviewed: Yes Vital Signs Reviewed: Yes - Physical Exam Appears: Positive for: Non-toxic, No Acute Distress Head Exam: Positive for: ATRAUMATIC, NORMAL INSPECTION Skin: Positive for: Warm, Dry Eye Exam: Positive for: Normal appearance, EOMI, PERRL ENT: Negative for: Pharyngeal Erythema, Tonsillar Exudate Neck: Positive for: Normal, Painless ROM, Supple Cardiovascular/Chest: Positive for: Regular Rate, Rhythm. Negative for: Chest Non Tender Respiratory: Positive for: Normal Breath Sounds. Negative for: Decreased Breath Sounds Gastrointestinal/Abdominal: Positive for: Soft Back: Positive for: Normal Inspection Extremity: Positive for: Normal ROM, Tenderness (left wrist radial aspect, left lateral thigh) Lymphatic: Negative for: Adenopathy Neurologic/Psych: Positive for: Alert, ward attendant II-XII, Oriented, Cerebellar Tests ( negative), Gait (unsteady). Negative for: Motor/Sensory Deficits - Laboratory Results Result Diagrams: 08/31/17 17:50 08/31/17 17:50 - ECG O2 Sat by Pulse Oximetry: 100 Medical Decision Making Medical Decision Makin DDx seizure, left wrist pain, left thigh pain urine tox CBC, CMP alchol level troponin EKG xray left hand and left femur NS 1L bolus reassessment 1806 baseline pancytopenia 1847 chronic elevated LFTs alcohol 266 xrays pending 1924 xray left hand and left femur no fx (my interp) keppra 1000mg PO x1 Disposition - Clinical Impression Clinical Impression: Alcohol intoxication, Recurrent seizures - Disposition Referrals: [facility] [Outside] Disposition Time: 20:41 Condition: STABLE Forms: Likelii (Maori)
[2017-08-31 17:56] LABS: BASO % 1.5 % (0.0-2.0); EOS # 0.1 K/uL (0.0-0.7); EOS % 2.8 % (0.0-4.0); HEMOGLOBIN 9.4 g/dL (12.0-18.0); LYMPH # 0.7 K/uL (1.0-4.3); LYMPH % 24.6 % (20.0-40.0); MEAN CELL VOLUME 95.5 fl (80.0-94.0); MEAN CORPUSCULAR HEMOGLOBIN 31.9 pg (27.0-31.0); MEAN CORPUSCULAR HGB CONC 33.4 g/dL (33.0-37.0); MEAN PLATELET VOLUME 8.2 fl (7.2-11.7); MONO # 0.4 K/uL (0.0-0.8); MONO % 14.2 % (0.0-10.0); NEUT # 1.7 K/uL (1.8-7.0); NEUT % 56.9 % (50.0-75.0); NRBC % 0.1 % (0.0-0.0); RBC 2.95 Mil/uL (4.40-5.90); RED CELL DISTRIBUTION WIDTH 17.8 % (11.5-14.5)
[2017-08-31 18:25] LABS: ALB/GLOB RATIO 0.7 (1.0-2.1); ALBUMIN 2.8 g/dL (3.5-5.0); ALT/SGPT 55 U/L (21-72); AST/SGOT 125 U/L (17-59); BLOOD UREA NITROGEN 11 mg/dl (9-20); CALCIUM 8.8 mg/dL (8.4-10.2); GFR AFRICAN-AMERICAN > 60; GFR NON-AFRICAN AMERICAN > 60
--- NOTE | 2017-08-31 19:06 | ED PDOC ---
- Laboratory Results Result Diagrams: 08/31/17 17:50 08/31/17 17:50 - ECG O2 Sat by Pulse Oximetry: 100 (RA) Pulse Ox Interpretation: Normal Medical Decision Making Medical Decision Making: Time: 1899 --Patient was endorsed to provider by Dr. Brown Maloney. Pending clinical sobriety, xray results and re-evaluation. Labs are reviewed. Anemia and thrombocytopenia noted. Patient has history of chronic anemia and low platelets with history of liver cirrhosis and alcohol abuse. No acute findings Xray L femur negative. Xray L hand negative. Scribe Attestation: Documented by Dulce Hoffmann, acting as a scribe for Cathy Salazar MD. Provider Scribe Attestation: All medical record entries made by the Scribe were at my direction and personally dictated by me. I have reviewed the chart and agree that the record accurately reflects my personal performance of the history, physical exam, medical decision making, and the department course for this patient. I have also personally directed, reviewed, and agree with the discharge instructions and disposition. Disposition Doctor Will See Patient In The: Office Counseled Patient/Family Regarding: Studies Performed, Diagnosis, Need For Followup - Clinical Impression Clinical Impression: Alcohol intoxication, Recurrent seizures, Fall, Hand sprain - POA Present On Arrival: None - Disposition Referrals: [facility] [Outside] French Kaur MD [Staff Provider] - Disposition: Routine/Home Disposition Time: 20:41 Condition: STABLE Additional Instructions: Follow up with your neurologist in 2-3 days. Instructions: Preventing Falls, Seizures, Alcohol Abuse and Alcoholism (DC)
[2017-08-31 21:04] LABS: BARBITURATES, UR NEGATIVE (NEGATIVE); BENZODIAZEPINES, UR POSITIVE (NEGATIVE); OPIATES, UR NEGATIVE (NEGATIVE); PHENCYCLIDINE, UR NEGATIVE (NEGATIVE)
--- NOTE | 2017-09-01 11:01 | RAD ---
PROCEDURE: Left Hand Radiographs. HISTORY: seizure and injury COMPARISON: None. FINDINGS: BONES: Old fracture deformity metacarpal shaft noted. Fifth proximal interphalangeal osteoarthrosis and mild flexure deformity suggested here JOINTS: Osteoarthrosis 5th proximal interphalangeal joint lesser degrees of degenerative changes all distal interphalangeal joints SOFT TISSUES: Normal. OTHER FINDINGS: None. IMPRESSION: No acute fracture. Old fracture deformity metacarpal Degenerative changes- most pronounced 5th proximal interphalangeal joint. Here concomitant flexion deformity present
--- NOTE | 2017-09-01 11:06 | RAD ---
PROCEDURE: HISTORY: seizure and injury COMPARISON: CT left lower extremity Nov 05 1016 per. Per the protective signal operator image this calcification ossification was present on that exam at the time TECHNIQUE: Two views FINDINGS: No fracture or lytic lesion. Left hip joint space narrowing. Left superolateral mild acetabular spurring. Short segmental soft tissue ossification/calcification 1.2 x 1 mm - approximately mid to distal left femoral shaft level within the medial and posterior soft tissues of the thigh -old posttraumatic ossification here inferred. IMPRESSION: No acute fracture dislocation. Chronic changes in the left posteromedial thigh - presumably posttraumatic dystrophic calcification
--- NOTE | 2017-09-01 12:11 | CARD ---
APPROVED REPORT EKG Measurement Heart [id number] <Conclusion> Sinus tachycardia Anterior infarct, age undetermined Abnormal ECG
== END 2017-08-31 21:37 | disposition home or self-care (01) ==
LOC: H.ER 16:49
DX: F10.129 Alcohol abuse with intoxication, unspecified (principal); G40.909 Epilepsy, unspecified, not intractable, without status epilepticus; S63.91XA Sprain of unspecified part of right wrist and hand, initial encounter; W19.XXXA Unspecified fall, initial encounter; Y92.89 Other specified places as the place of occurrence of the external cause; G20 Parkinson's disease; Z86.718 Personal history of other venous thrombosis and embolism; G89.29 Other chronic pain
CPT/HCPCS: 73130; 73552; 80053; 80320; 80324; 80345; 80346; 80349; 80353; 80358; 80361; 83992; 84484; 85025; 93005; 99283; J7040

== ENCOUNTER 2017-09-01 17:18 | Emergency (ER) | payer MEDICAID ==
[2017-09-01 17:29] VITALS: TEMP 98.7
[2017-09-01] MEDS ORDERED: Sodium Chloride 0.9% 1,000 ML IV STA (17:54)
[2017-09-01 19:16] LABS: BASO % 0.9 % (0.0-2.0); EOS # 0.1 K/uL (0.0-0.7); EOS % 2.2 % (0.0-4.0); HEMOGLOBIN 8.9 g/dL (12.0-18.0); LYMPH # 0.6 K/uL (1.0-4.3); LYMPH % 23.4 % (20.0-40.0); MEAN CELL VOLUME 96.4 fl (80.0-94.0); MEAN CORPUSCULAR HEMOGLOBIN 31.6 pg (27.0-31.0); MEAN CORPUSCULAR HGB CONC 32.8 g/dL (33.0-37.0); MEAN PLATELET VOLUME 7.8 fl (7.2-11.7); MONO # 0.3 K/uL (0.0-0.8); NEUT # 1.6 K/uL (1.8-7.0); NEUT % 60.5 % (50.0-75.0); NRBC % 0.1 % (0.0-0.0); RBC 2.81 Mil/uL (4.40-5.90); RED CELL DISTRIBUTION WIDTH 18.4 % (11.5-14.5); WHITE BLOOD COUNT 2.6 K/uL (4.8-10.8)
[2017-09-01 19:28] LABS: ALB/GLOB RATIO 0.7 (1.0-2.1); ALBUMIN 2.7 g/dL (3.5-5.0); ALT/SGPT 57 U/L (21-72); AST/SGOT 132 U/L (17-59); BLOOD UREA NITROGEN 15 mg/dl (9-20); CALCIUM 8.2 mg/dL (8.4-10.2); GFR AFRICAN-AMERICAN > 60; GFR NON-AFRICAN AMERICAN > 60
[2017-09-01] MEDS ORDERED: levETIRAcetam 500 MG in Sodium Chloride 0.9% 100 ML IVPB STA (19:45)
--- NOTE | 2017-09-01 20:48 | ED PDOC ---
HPI: Seizure Time Seen by Provider: 09/01/17 17:53 Chief Complaint (Nursing): Seizure Chief Complaint (Provider): Seizure History Per: Patient History/Exam Limitations: other (ETOH intoxication.) Recent Seizure Activity Began: Just Before Arrival Number Of Seizures: One Associated Symptoms: Injury As A Result Of Seizure Activity (right knee and left hip pain.). denies: Bit Tongue, Incontinence Of Urine Additional Complaint(s): Shreyas Sepulveda is a 52 year old male, with a past medical history of seizure, who presents to the emergency department for seizure onset prior to arrival. Patient reports he was with a friend who witnessed him fall down and actively seize. Patient states he did not take his medicine today. He also reports severe right knee pain and left hip pain. Patient has been here multiple times and denies drinking although he is a known alcoholic with liver cirrhosis. He denies any urinary incontinence, tongue injury, drug use, focal weakness or blurry vision. Patient is intoxicated, history may be unreliable. PMD: Gage Bradley Past Medical History Reviewed: Historical Data, Nursing Documentation, Vital Signs Vital Signs: Last Vital Signs Temp 98.7 F 09/01/17 17:26 Pulse 112 H 09/01/17 20:03 Resp 15 09/01/17 20:03 BP 125/77 09/01/17 20:03 Pulse Ox 97 09/01/17 21:03 - Medical History PMH: Anemia, Back Problems (herniated disc), Deep Vein Thrombosis, Fractures ( left shoulder, Left hand 5th digit), Gastritis, Seizures, Chronic Pain (left shoulder) Denies: HTN (Denies as per patient), Migraine, Pancreatitis (patient denies) , Parkinson's Disease, Chronic Kidney Disease - Surgical History Surgical History: Endoscopy - Family History Family History: States: Unknown Family Hx - Social History Current smoker - smoking cessation education provided: Yes (Current some days) Alcohol: > 2 Drinks/Day Drugs: Denies - Immunization History Hx Tetanus Toxoid Vaccination: Yes - Home Medications Home Medications: Ambulatory Orders Medication Instructions Recorded levETIRAcetam [Keppra] 500 mg PO BID 10/16/16 Naproxen [Naprosyn] 500 mg PO Q12H #20 tab 08/28/17 traMADol [Ultram] 50 mg PO TID PRN #6 tab 08/30/17 Lactulose [Generlac] 30 ml PO TID 08/31/17 Omeprazole [Omeprazole] 40 mg PO BID 08/31/17 - Allergies Allergies/Adverse Reactions: Allergies Allergy/AdvReac Type Severity Reaction Status Date / Time aspirin Allergy NAUSEA Verified 09/01/17 17:25 Review of Systems ROS Statement: Except As Marked, All Systems Reviewed And Found Negative Constitutional: Positive for: Weakness (generalized. ), Other (fatigue and body aches) Eyes: Negative for: Vision Change (blurry vision) ENT: Negative for: Other (tongue injury) Genitourinary Male: Negative for: Incontinence Musculoskeletal: Positive for: Leg Pain (right knee), Other (left hip pain) Skin: Positive for: Bruising (all over the skin.) Neurological: Positive for: Seizures. Negative for: Weakness (focal) Physical Exam - Reviewed Nursing Documentation Reviewed: Yes Vital Signs Reviewed: Yes - Physical Exam Appears: Negative for: Well (disheveled, unkempt, tired appearing. ) Head Exam: Positive for: ATRAUMATIC, NORMAL INSPECTION, NORMOCEPHALIC Skin: Positive for: Normal Color, Warm, Dry Eye Exam: Positive for: Normal appearance, EOMI, PERRL ENT: Positive for: Other (tacky mucous membrane. No visible tongue injury) Neck: Positive for: Painless ROM, Supple Cardiovascular/Chest: Positive for: Tachycardia (with regular rhythm.) Respiratory: Positive for: Rhonchi (coarse diffusely). Negative for: Respiratory Distress Gastrointestinal/Abdominal: Positive for: Normal Exam, Soft. Negative for: Tenderness Back: Positive for: Normal Inspection. Negative for: L CVA Tenderness, R CVA Tenderness, Vertebral Tenderness Extremity: Positive for: Normal ROM (Knee flexion and extension 5/5), Tenderness (to palpation to anterior right knee. Left hip tenderness with ecchymosis and mild edema consistent with recent contusion, Full ROM at hip.), Swelling (right knee diffused edema), Other (multiple ecchymotic lesions some appear due to venipunctures other appear traumatic.). Negative for: Deformity ( right knee. Negative laxity. ) Neurologic/Psych: Positive for: Alert, Oriented, Other (mildly slow speech. ). Negative for: Motor/Sensory Deficits - Laboratory Results Result Diagrams: 09/01/17 18:32 09/01/17 18:32 - ECG O2 Sat by Pulse Oximetry: 97 (RA) Pulse Ox Interpretation: Normal Medical Decision Making Medical Decision Making: Initial Impression: Breakthrough seizure, and alcohol intoxication. Differential includes but not limited to electrolyte abnormality, anemia, dehydration Initial Plan: --Alcohol serum --CMP --Creatine Phosphokinase --Drug screen, urine --Lact Acid, Plasma --Magnesium --Phosphorus --Urine dipstick --CBC w/ differential --Knee 3 views RT [RAD] --Keppra 500 mg Sodium Chloride 100 ml IVPB --Sodium Chloride 1,000 ml IV 1,000 mls/hr --Glucose, Blood, POC --Hip left [HIP MIN 2V w/ Pelvis LT] [RAD] --Reevaluation -Right knee x-ray show no fracture or dislocation. -Left hip X-Ray show no fracture or dislocation. 00:30 --patient signed over to Dr. Chiu pending clinical sobriety. Scribe Attestation: Documented by Giovany Puri, acting as a scribe for Fatimah Morillo MD Provider Scribe Attestation: All medical record entries made by the Scribe were at my direction and personally dictated by me. I have reviewed the chart and agree that the record accurately reflects my personal performance of the history, physical exam, medical decision making, and the department course for this patient. I have also personally directed, reviewed, and agree with the discharge instructions and disposition. Disposition - Patient ED Disposition Is Patient to be Admitted: Transfer of Care Discussed With : Murphy Chiu Doctor Will See Patient In The: ED - Disposition Disposition: Transfer of Care Disposition Time: 00:30 Condition: FAIR Forms: [employer] (Faroese) Patient Signed Over To: Murphy Chiu (pending sobriety)
[2017-09-01 20:53] LABS: BARBITURATES, UR NEGATIVE (NEGATIVE); BENZODIAZEPINES, UR POSITIVE (NEGATIVE); OPIATES, UR NEGATIVE (NEGATIVE); PHENCYCLIDINE, UR NEGATIVE (NEGATIVE)
--- NOTE | 2017-09-02 00:49 | ED PDOC ---
- Laboratory Results Result Diagrams: 09/01/17 18:32 09/01/17 18:32 - ECG O2 Sat by Pulse Oximetry: 97 (RA) Pulse Ox Interpretation: Normal Medical Decision Making Medical Decision Making: Time: --00:30 Reassess --patient signed over to the provider by Dr. Morillo pending clinical sobriety. 0400 Patient now awake, alert, steady gait, clinically sober. Stable for discharge. Scribe Attestation: Documented by Keven Ambrocio acting as a scribe for Murphy Chiu MD. Provider Attestation: All medical record entries made by the Scribe were at my direction and personally dictated by me. I have reviewed the chart and agree that the record accurately reflects my personal performance of the history, physical exam, medical decision making, and the department course for this patient. I have also personally directed, reviewed, and agree with the discharge instructions and disposition. Disposition - Clinical Impression Clinical Impression: Alcohol abuse - POA Present On Arrival: None - Disposition Referrals: Gage Bradley MD [Family Provider] - Disposition: Routine/Home Disposition Time: 04:13 Condition: IMPROVED Instructions: Alcohol Abuse and Alcoholism (DC) Forms: [facility] [employer] (Romanian)
[2017-09-02 03:48] VITALS: BP 120/72; PULSE 87; RESP 16
[2017-09-02 04:13] VITALS: O2SAT 97
--- NOTE | 2017-09-02 08:07 | RAD ---
PROCEDURE: Right Knee Radiographs. HISTORY: RIGHT knee pain COMPARISON: Right knee radiographs 08/15/2016. FINDINGS: BONES: No acute fracture or destructive bony lesion identified. Patient preferred not to undergo sunrise view which is not included in this exam. JOINTS: Medial and patellofemoral joint space narrowing indicates mild degenerative joint disease. JOINT EFFUSION: None. OTHER FINDINGS: None. IMPRESSION: Limited degenerative joint disease. No acute fracture or dislocation identified.
--- NOTE | 2017-09-02 08:09 | RAD ---
PROCEDURE: Left Hip with Pelvis Radiographs HISTORY: LEFT hip pain s/p fall COMPARISON: Pelvis radiograph 02/12/2017. TECHNIQUE: Two views left hip have been submitted with a single frontal view the pelvis. FINDINGS: There is no fracture dislocation of the left hip joint with the pelvic ring appearing intact as well. No destructive bony lesion identified throughout. Cortical sclerosis and osteophyte development appear slightly greater the right than left hip joints with symmetric sacroiliac joint degenerative changes present. Local soft tissues appear grossly unremarkable. Pubic symphysis appears intact. IMPRESSION: No acute fracture or dislocation left hip joint. Degenerative changes seen greater the right than left hip joints and symmetric in the bilateral sacroiliac joints.
== END 2017-09-02 05:20 | disposition home or self-care (01) ==
LOC: H.ER 17:18
DX: F10.129 Alcohol abuse with intoxication, unspecified (principal); G20 Parkinson's disease; R56.9 Unspecified convulsions; Z86.718 Personal history of other venous thrombosis and embolism; M17.11 Unilateral primary osteoarthritis, right knee; G89.29 Other chronic pain
CPT/HCPCS: 73502; 73562; 80053; 80320; 80324; 80345; 80346; 80349; 80353; 80358; 80361; 82550; 82948; 83605; 83735; 83992; 84100; 85025; 96374; 99285; J1953; J7040

== ENCOUNTER 2017-09-02 15:08 | Emergency (ER) | payer MEDICAID ==
[2017-09-02 15:16] VITALS: TEMP 98
--- NOTE | 2017-09-02 16:23 | ED PDOC ---
HPI: Seizure Time Seen by Provider: 09/02/17 15:29 Chief Complaint (Nursing): Seizure Chief Complaint (Provider): Seizure History Per: Patient History/Exam Limitations: no limitations Number Of Seizures: Multiple (daily) Additional Complaint(s): Shreyas Sepulveda is a 52 year old male with a past medical history of seizures , who is presenting to the ED with complains of head injury s/p fall during his regular daily seizure prior to arrival. Fall was witnessed by sister, but patient doesn't remember the fall due to seizure, but complains of diffuse head injury and pain. He also complains of left rib pain, and was recently diagnosed with a rib fracture s/p previous fall. Patient denies any chest pain, shortness of breath, numbness, tingling, or weakness. Patient reports that he has been taking his daily doses of Keppra; dosage was adjusted to 1500 yesterday. Patients neurologist is Dr. Kaur. PMD: Gage Bradley Past Medical History Reviewed: Historical Data, Nursing Documentation, Vital Signs Vital Signs: Last Vital Signs Temp 98.0 F 09/02/17 15:14 Pulse 97 H 09/02/17 15:14 Resp 16 09/02/17 15:14 BP 149/71 09/02/17 15:14 Pulse Ox 100 09/02/17 17:47 - Medical History PMH: Anemia, Back Problems (herniated disc), Deep Vein Thrombosis, Fractures ( left shoulder, Left hand 5th digit), Gastritis, Seizures, Chronic Pain (left shoulder) Denies: HTN (Denies as per patient), Migraine, Pancreatitis (patient denies) , Parkinson's Disease, Chronic Kidney Disease - Surgical History Surgical History: Endoscopy - Family History Family History: States: Unknown Family Hx - Immunization History Hx Tetanus Toxoid Vaccination: Yes - Home Medications Home Medications: Ambulatory Orders Medication Instructions Recorded levETIRAcetam [Keppra] 500 mg PO BID 10/16/16 Naproxen [Naprosyn] 500 mg PO Q12H #20 tab 08/28/17 traMADol [Ultram] 50 mg PO TID PRN #6 tab 08/30/17 Lactulose [Generlac] 30 ml PO TID 08/31/17 Omeprazole [Omeprazole] 40 mg PO BID 08/31/17 - Allergies Allergies/Adverse Reactions: Allergies Allergy/AdvReac Type Severity Reaction Status Date / Time aspirin Allergy NAUSEA Verified 09/02/17 15:14 Review of Systems ROS Statement: Except As Marked, All Systems Reviewed And Found Negative Cardiovascular: Negative for: Chest Pain Respiratory: Negative for: Shortness of Breath Neurological: Positive for: Headache (mild). Negative for: Weakness, Numbness, Other (tingling) Physical Exam - Reviewed Nursing Documentation Reviewed: Yes Vital Signs Reviewed: Yes - Physical Exam Appears: Positive for: Non-toxic, No Acute Distress Head Exam: Positive for: ATRAUMATIC, NORMAL INSPECTION, NORMOCEPHALIC Skin: Positive for: Normal Color, Warm, Dry Eye Exam: Positive for: EOMI, Normal appearance, PERRL Neck: Positive for: Normal, Painless ROM, Supple Cardiovascular/Chest: Positive for: Regular Rate, Rhythm. Negative for: Murmur Respiratory: Positive for: Normal Breath Sounds. Negative for: Respiratory Distress Gastrointestinal/Abdominal: Positive for: Normal Exam, Soft. Negative for: Tenderness Back: Positive for: Normal Inspection. Negative for: L CVA Tenderness, R CVA Tenderness, Vertebral Tenderness Extremity: Positive for: Normal ROM. Negative for: Pedal Edema, Deformity Neurologic/Psych: Positive for: Alert, Oriented. Negative for: Motor/Sensory Deficits - Laboratory Results Result Diagrams: 09/02/17 16:25 09/02/17 16:25 - ECG O2 Sat by Pulse Oximetry: 100 (RA) Pulse Ox Interpretation: Normal - Progress Re-evaluation Time: 18:08 Condition: Re-examined, Improved Medical Decision Making Medical Decision Making: Time: 16:17 Impression: reoccurring seizure, head injury Differentials: rule out cranial bleeding from head injury, alcohol intoxication and electrolyte abnormalities Plan: --CT Head --Alcohol Serum --BMP --Magnesium --CBC --Potassium Chloride 20 meq PO --Viatmin B1 100 mg PO --Folic Acid 1 mg PO --Magnesium Sulfate 100 ml IVPB 17:00 Patient's labs were read. Patient has Hypokalemia and hypomagnesemia. Potassium chloride, magnesium sulfate, and vitamin B1 administered. Pending CT Head. Time: 17:21 CT HEAD FINDINGS: HEMORRHAGE: No intracranial hemorrhage. BRAIN: No mass effect or edema. Scattered periventricular and subcortical white matter hypodensities, which are nonspecific, but often seen with chronic microvascular ischemic disease. Please note that MRI with diffusion imaging is more sensitive in the detection of acute ischemic event. VENTRICLES: No hydrocephalus. CALVARIUM: Unremarkable. PARANASAL SINUSES: Bilateral mucosal polyp/cysts within the maxillary sinuses. The remainder of the limited visualized paranasal sinuses appear clear. MASTOID AIR CELLS: Fluid within the left greater than right mastoid air cells ; correlate clinically for mastoiditis. OTHER FINDINGS: None. IMPRESSION: Nonspecific white matter changes. Fluid within the left greater than right mastoid air cells ; correlate clinically for mastoiditis. 1808 Patient is alert and awake. Ambulatory with steady gait. Scribe Attestation: Documented by Roxana Wang, acting as a scribe for Cathy Salazar MD. Provider Scribe Attestation: All medical record entries made by the Scribe were at my direction and personally dictated by me. I have reviewed the chart and agree that the record accurately reflects my personal performance of the history, physical exam, medical decision making, and the department course for this patient. I have also personally directed, reviewed, and agree with the discharge instructions and disposition. Disposition - Clinical Impression Clinical Impression: Recurrent seizures, Alcohol intoxication, Hand injury, Hypomagnesemia, Hypokalemia - Patient ED Disposition Is Patient to be Admitted: No Doctor Will See Patient In The: Office Counseled Patient/Family Regarding: Studies Performed, Diagnosis, Need For Followup - Disposition Referrals: French Kaur MD [Staff Provider] - Disposition: Routine/Home Disposition Time: 18:10 Condition: GOOD Additional Instructions: Take your medications as instructed. Follow up with your PCP in 2-3 days. Instructions: Seizures, Adult (DC), Alcohol Abuse and Alcoholism (DC), Low Magnesium Level
[2017-09-02 16:38] LABS: BASO % 1.3 % (0.0-2.0); EOS # 0.1 K/uL (0.0-0.7); EOS % 2.7 % (0.0-4.0); HEMOGLOBIN 8.9 g/dL (12.0-18.0); LYMPH # 0.5 K/uL (1.0-4.3); LYMPH % 17.4 % (20.0-40.0); MEAN CELL VOLUME 94.9 fl (80.0-94.0); MEAN CORPUSCULAR HEMOGLOBIN 32.4 pg (27.0-31.0); MEAN CORPUSCULAR HGB CONC 34.1 g/dL (33.0-37.0); MEAN PLATELET VOLUME 7.8 fl (7.2-11.7); MONO # 0.3 K/uL (0.0-0.8); MONO % 11.1 % (0.0-10.0); NEUT # 1.9 K/uL (1.8-7.0); NEUT % 67.5 % (50.0-75.0); NRBC % 0.2 % (0.0-0.0); RBC 2.74 Mil/uL (4.40-5.90); RED CELL DISTRIBUTION WIDTH 18.8 % (11.5-14.5); WHITE BLOOD COUNT 2.7 K/uL (4.8-10.8)
[2017-09-02 16:51] LABS: BLOOD UREA NITROGEN 15 mg/dl (9-20); CALCIUM 7.6 mg/dL (8.4-10.2); GFR AFRICAN-AMERICAN > 60; GFR NON-AFRICAN AMERICAN > 60
[2017-09-02] MEDS ORDERED: Magnesium Sulfate 2 gm/50 ml 2 GM/50 ML BAG IVPB ONE (17:00)
[2017-09-02] MEDS ORDERED: Potassium Chloride 20 mEq ER Tab PO ONE (17:00)
--- NOTE | 2017-09-02 17:23 | CT ---
PROCEDURE: CT HEAD WITHOUT CONTRAST. HISTORY: seizure head injury COMPARISON: Noncontrast head CT performed 08/30/17 TECHNIQUE: Axial computed tomography images were obtained through the head/brain without intravenous contrast. Radiation dose: Total exam DLP = 856.09 mGy-cm. This CT exam was performed using one or more of the following dose reduction techniques: Automated exposure control, adjustment of the mA and/or kV according to patient size, and/or use of iterative reconstruction technique. FINDINGS: HEMORRHAGE: No intracranial hemorrhage. BRAIN: No mass effect or edema. Scattered periventricular and subcortical white matter hypodensities, which are nonspecific, but often seen with chronic microvascular ischemic disease. Please note that MRI with diffusion imaging is more sensitive in the detection of acute ischemic event. VENTRICLES: No hydrocephalus. CALVARIUM: Unremarkable. PARANASAL SINUSES: Bilateral mucosal polyp/cysts within the maxillary sinuses. The remainder of the limited visualized paranasal sinuses appear clear. MASTOID AIR CELLS: Fluid within the left greater than right mastoid air cells ; correlate clinically for mastoiditis. OTHER FINDINGS: None. IMPRESSION: Nonspecific white matter changes. Fluid within the left greater than right mastoid air cells ; correlate clinically for mastoiditis.
[2017-09-02 18:43] VITALS: BP 137/78; PULSE 81; RESP 15
[2017-09-02 20:18] VITALS: O2SAT 100
== END 2017-09-02 18:43 | disposition home or self-care (01) ==
LOC: H.ER 15:08
DX: G40.909 Epilepsy, unspecified, not intractable, without status epilepticus (principal); S09.90XA Unspecified injury of head, initial encounter; W19.XXXA Unspecified fall, initial encounter; Y92.89 Other specified places as the place of occurrence of the external cause; E83.42 Hypomagnesemia; E87.6 Hypokalemia; F10.129 Alcohol abuse with intoxication, unspecified; G89.29 Other chronic pain; Z86.718 Personal history of other venous thrombosis and embolism

== ENCOUNTER 2017-09-03 05:49 | Emergency (ER) | payer MEDICAID ==
[2017-09-03 05:59] VITALS: BMI 23.3
[2017-09-03 06:06] VITALS: RESP 18; TEMP 97.8
[2017-09-03] MEDS ORDERED: Sodium Chloride 0.9% 1,000 ML IV STA (06:23)
--- NOTE | 2017-09-03 06:26 | ED PDOC ---
HPI: Abdomen Time Seen by Provider: 09/03/17 06:13 Chief Complaint (Nursing): GI Problem History Per: Patient History/Exam Limitations: no limitations Onset/Duration Of Symptoms: Hrs Location Of Pain/Discomfort: Epigastric Additional Complaint(s): Hx of seizure d/o, cirrhosis, esophageal varices p/w vomiting, started at 5AM, states he vomited 4 episodes with blood tinged vomit, states he's been taking motrin for the past 1.5 days, around 6 pills for rib fractures. States he has only mild epigastric pain. Denies dark stools/bloody stools. No lightheadedness, dizziness. No CP/SOB. States he last drank 3 days ago. States he had an endoscopy [address] Bradley. Past Medical History Reviewed: Historical Data, Nursing Documentation, Vital Signs Vital Signs: Last Vital Signs Temp 97.8 F 09/03/17 06:00 Pulse 101 H 09/03/17 06:00 Resp 18 09/03/17 06:00 BP 148/78 09/03/17 06:00 Pulse Ox 97 09/03/17 06:00 - Medical History PMH: Anemia, Back Problems (herniated disc), Deep Vein Thrombosis, Fractures ( rib fx, left shoulder, Left hand 5th digit, Humerus fracture), Gastritis, Pancreatitis, Pneumonia, Seizures, Chronic Pain (left shoulder) Denies: HTN (Denies as per patient), Migraine, Parkinson's Disease, Chronic Kidney Disease - Surgical History Surgical History: Endoscopy - Family History Family History: States: Unknown Family Hx - Immunization History Hx Tetanus Toxoid Vaccination: Yes - Home Medications Home Medications: Ambulatory Orders Medication Instructions Recorded levETIRAcetam [Keppra] 500 mg PO BID 10/16/16 Naproxen [Naprosyn] 500 mg PO Q12H #20 tab 08/28/17 traMADol [Ultram] 50 mg PO TID PRN #6 tab 08/30/17 Lactulose [Generlac] 30 ml PO TID 08/31/17 Omeprazole [Omeprazole] 40 mg PO BID 08/31/17 - Allergies Allergies/Adverse Reactions: Allergies Allergy/AdvReac Type Severity Reaction Status Date / Time aspirin Allergy NAUSEA Verified 09/03/17 05:59 Review of Systems ROS Statement: Except As Marked, All Systems Reviewed And Found Negative Gastrointestinal: Positive for: Nausea, Vomiting, Abdominal Pain, Hematemesis Physical Exam - Reviewed Nursing Documentation Reviewed: Yes - Physical Exam Appears: Positive for: Well, Non-toxic, No Acute Distress Head Exam: Positive for: ATRAUMATIC, NORMAL INSPECTION, NORMOCEPHALIC Skin: Positive for: Normal Color, Warm, DRY Eye Exam: Positive for: EOMI, Normal appearance, PERRL ENT: Positive for: Normal ENT Inspection Neck: Positive for: Normal, Painless ROM Cardiovascular/Chest: Positive for: Regular Rate, Rhythm Respiratory: Positive for: CNT, Normal Breath Sounds Gastrointestinal/Abdominal: Positive for: Normal Exam, Bowel Sounds, Soft. Negative for: Tenderness Back: Positive for: Normal Inspection Extremity: Positive for: Normal ROM Neurologic/Psych: Positive for: Alert, Oriented - ECG O2 Sat by Pulse Oximetry: 97 Pulse Ox Interpretation: Normal Medical Decision Making Medical Decision MakinAM A/P: Hx of cirrhosis, seizures, ETOH abuse, varices p/w vomiting blood -likely 2/2 to increaseed use of NSAIDs recently -will get labs -will give ivf, zofran, ppi 7AM Case endorsed to Dr. Sousa pending workup and re-eval. Disposition - Clinical Impression Clinical Impression: Vomiting blood - Patient ED Disposition Is Patient to be Admitted: Transfer of Care - Disposition Disposition: Transfer of Care Disposition Time: 07:00 Condition: STABLE Patient Signed Over To: Jonathan Sousa Handoff Comments: pending workup and re-eval
--- NOTE | 2017-09-03 07:17 | ED PDOC ---
- Laboratory Results Result Diagrams: 09/03/17 07:04 09/03/17 07:04 - ECG O2 Sat by Pulse Oximetry: 97 Medical Decision Making Medical Decision Making: Time: 0700 --Patient was endorsed to provider by Dr. Murphy Chiu. Pending lab results and re-evaluation. CBC reveals pancytopenia but stable with H?h improved over previuous values. LFTs stable Scribe Attestation: Documented by Dulce Hoffmann, acting as a scribe for Jonathan Sousa MD. Provider Scribe Attestation: All medical record entries made by the Scribe were at my direction and personally dictated by me. I have reviewed the chart and agree that the record accurately reflects my personal performance of the history, physical exam, medical decision making, and the department course for this patient. I have also personally directed, reviewed, and agree with the discharge instructions and disposition. Disposition - Clinical Impression Clinical Impression: Abdominal pain, Cirrhosis - POA Present On Arrival: None - Disposition Referrals: [facility] [Outside] Disposition: Routine/Home Disposition Time: 08:45 Condition: FAIR Prescriptions: Famotidine [Pepcid] 20 mg PO Q12 #20 tab Instructions: Cirrhosis, Gastritis Forms: [employer] (Faroese)
[2017-09-03 07:24] LABS: ALB/GLOB RATIO 0.7 (1.0-2.1); ALBUMIN 2.7 g/dL (3.5-5.0); ALT/SGPT 53 U/L (21-72); AST/SGOT 123 U/L (17-59); BLOOD UREA NITROGEN 14 mg/dl (9-20); GFR AFRICAN-AMERICAN > 60; GFR NON-AFRICAN AMERICAN > 60; LIPASE 133 U/L (23-300)
[2017-09-03 07:30] LABS: BASO % 0.9 % (0.0-2.0); EOS # 0.1 K/uL (0.0-0.7); EOS % 2.6 % (0.0-4.0); HEMOGLOBIN 9.3 g/dL (12.0-18.0); LYMPH # 0.5 K/uL (1.0-4.3); LYMPH % 17.6 % (20.0-40.0); MEAN CELL VOLUME 94.9 fl (80.0-94.0); MEAN CORPUSCULAR HEMOGLOBIN 32.7 pg (27.0-31.0); MEAN CORPUSCULAR HGB CONC 34.4 g/dL (33.0-37.0); MEAN PLATELET VOLUME 7.9 fl (7.2-11.7); MONO # 0.2 K/uL (0.0-0.8); MONO % 8.3 % (0.0-10.0); NEUT % 70.6 % (50.0-75.0); NRBC % 0.4 % (0.0-0.0); RBC 2.83 Mil/uL (4.40-5.90); RED CELL DISTRIBUTION WIDTH 18.2 % (11.5-14.5); WHITE BLOOD COUNT 2.8 K/uL (4.8-10.8)
[2017-09-03 07:31] LABS: INR 1.7 (0.9-1.2); PARTIAL THROMBOPLASTIN TIME 40.4 Seconds (25.6-37.1); PROTHROMBIN TIME 18.6 Seconds (9.8-13.1)
[2017-09-03 10:46] VITALS: BP 140/70; PULSE 90; O2SAT 98
== END 2017-09-03 09:55 | disposition home or self-care (01) ==
LOC: H.ER 05:49
DX: R10.13 Epigastric pain (principal); K92.0 Hematemesis; K74.60 Unspecified cirrhosis of liver
CPT/HCPCS: 80053; 80320; 83690; 85025; 85610; 85730; 86850; 86900; 96361; 96374; 96375; 99283; C9113; J2405; J7040

== ENCOUNTER 2017-09-03 19:04 | Emergency (ER) | payer MEDICAID ==
[2017-09-03 19:04] VITALS: BMI 23.3
[2017-09-03 19:06] VITALS: RESP 16
--- NOTE | 2017-09-03 20:19 | ED PDOC ---
HPI: Seizure Time Seen by Provider: 09/03/17 19:17 Chief Complaint (Nursing): Seizure Chief Complaint (Provider): "seizure" History Per: Patient History/Exam Limitations: no limitations Recent Seizure Activity Began: Just Before Arrival Number Of Seizures: One Length Of Seizures (Duration): Unknown Additional Complaint(s): 52 yo male wiht history of seixzure disorder presents after "having a seizure". Pt walked in with steady gait. Recent keppra level 17.7 which is normal. Past Medical History Reviewed: Historical Data, Nursing Documentation, Vital Signs Vital Signs: Last Vital Signs Temp 98.2 F 09/03/17 21:04 Pulse 97 H 09/03/17 21:04 Resp 16 09/03/17 21:04 BP 131/61 09/03/17 21:04 Pulse Ox 99 09/03/17 21:04 - Medical History PMH: Anemia, Back Problems (herniated disc), Deep Vein Thrombosis, Fractures ( rib fx, left shoulder, Left hand 5th digit, Humerus fracture), Gastritis, Pancreatitis, Pneumonia, Seizures, Chronic Pain (left shoulder) Denies: HTN (Denies as per patient), Migraine, Parkinson's Disease, Chronic Kidney Disease - Surgical History Surgical History: Endoscopy - Family History Family History: States: Unknown Family Hx - Immunization History Hx Tetanus Toxoid Vaccination: Yes - Home Medications Home Medications: Ambulatory Orders Medication Instructions Recorded levETIRAcetam [Keppra] 500 mg PO BID 10/16/16 Naproxen [Naprosyn] 500 mg PO Q12H #20 tab 08/28/17 traMADol [Ultram] 50 mg PO TID PRN #6 tab 08/30/17 Lactulose [Generlac] 30 ml PO TID 08/31/17 Omeprazole [Omeprazole] 40 mg PO BID 08/31/17 Famotidine [Pepcid] 20 mg PO Q12 #20 tab 09/03/17 - Allergies Allergies/Adverse Reactions: Allergies Allergy/AdvReac Type Severity Reaction Status Date / Time aspirin Allergy NAUSEA Verified 09/03/17 05:59 naproxen Allergy RASH Verified 09/03/17 19:08 Review of Systems ROS Statement: Except As Marked, All Systems Reviewed And Found Negative Constitutional: Negative for: Fever, Chills Gastrointestinal: Negative for: Nausea, Vomiting, Abdominal Pain Neurological: Positive for: Seizures Physical Exam - Reviewed Nursing Documentation Reviewed: Yes Vital Signs Reviewed: Yes - Physical Exam Appears: Positive for: Well, Non-toxic, No Acute Distress Head Exam: Positive for: ATRAUMATIC, NORMAL INSPECTION, NORMOCEPHALIC Skin: Positive for: Normal Color, Warm, DRY Eye Exam: Positive for: Normal appearance, EOMI, PERRL ENT: Positive for: Normal ENT Inspection Neck: Positive for: Normal, Painless ROM Cardiovascular/Chest: Positive for: Regular Rate, Rhythm Respiratory: Positive for: CNT, Normal Breath Sounds Gastrointestinal/Abdominal: Positive for: Normal Exam, Bowel Sounds, Soft Back: Positive for: Normal Inspection Extremity: Positive for: Normal ROM Neurologic/Psych: Positive for: Alert, Oriented - ECG O2 Sat by Pulse Oximetry: 98 Disposition - Clinical Impression Clinical Impression: Seizure disorder - Patient ED Disposition Is Patient to be Admitted: No - Disposition Disposition: Routine/Home Disposition Time: 20:19 Condition: STABLE Instructions: Seizures, Adult (DC) Forms: [employer] (Prydeinig)
[2017-09-03 21:04] VITALS: BP 131/61; PULSE 97; TEMP 98.2
[2017-09-06 03:19] VITALS: O2SAT 98
== END 2017-09-03 21:08 | disposition home or self-care (01) ==
LOC: H.ER 19:04
DX: G40.909 Epilepsy, unspecified, not intractable, without status epilepticus (principal); G89.29 Other chronic pain; Z86.718 Personal history of other venous thrombosis and embolism

== ENCOUNTER 2017-09-04 16:55 | Emergency (ER) | payer MEDICAID ==
[2017-09-04 16:55] VITALS: BMI 23.3
[2017-09-04 17:15] VITALS: PULSE 103; RESP 18; TEMP 97.9; O2SAT 99
[2017-09-04] MEDS ORDERED: Sodium Chloride 0.9% 1,000 ML IV SCH (18:15)
[2017-09-04 18:33] LABS: BASO % 1.2 % (0.0-2.0); EOS # 0.1 K/uL (0.0-0.7); EOS % 3.4 % (0.0-4.0); HEMOGLOBIN 8.4 g/dL (12.0-18.0); LYMPH # 0.9 K/uL (1.0-4.3); LYMPH % 24.8 % (20.0-40.0); MEAN CELL VOLUME 96.9 fl (80.0-94.0); MEAN CORPUSCULAR HEMOGLOBIN 32.1 pg (27.0-31.0); MEAN CORPUSCULAR HGB CONC 33.1 g/dL (33.0-37.0); MEAN PLATELET VOLUME 7.3 fl (7.2-11.7); MONO # 0.4 K/uL (0.0-0.8); MONO % 11.3 % (0.0-10.0); NEUT # 2.2 K/uL (1.8-7.0); NEUT % 59.3 % (50.0-75.0); NRBC % 0.1 % (0.0-0.0); RBC 2.62 Mil/uL (4.40-5.90); RED CELL DISTRIBUTION WIDTH 19.8 % (11.5-14.5); WHITE BLOOD COUNT 3.7 K/uL (4.8-10.8)
[2017-09-04 19:06] LABS: ALB/GLOB RATIO 0.7 (1.0-2.1); ALBUMIN 2.7 g/dL (3.5-5.0); ALT/SGPT 49 U/L (21-72); AST/SGOT 111 U/L (17-59); BLOOD UREA NITROGEN 11 mg/dl (9-20); CALCIUM 8.2 mg/dL (8.4-10.2); GFR AFRICAN-AMERICAN > 60; GFR NON-AFRICAN AMERICAN > 60
--- NOTE | 2017-09-04 19:48 | ED PDOC ---
HPI: Seizure Time Seen by Provider: 09/04/17 17:24 Chief Complaint (Nursing): Seizure Chief Complaint (Provider): Seizure History Per: Patient History/Exam Limitations: no limitations Recent Seizure Activity Began: Days Ago: (daily for past 4 days) Number Of Seizures: One Length Of Seizures (Duration): Unknown Quality Of Seizure: Generalized Precipitating Factor(s): denies: Missed Dose Of Anti-seizure Medication Associated Symptoms: Injury As A Result Of Seizure Activity Additional Complaint(s): 52 year old male present to ED with complaints of head injury status post seizure earlier today and has a past medical history of seizure disorder, alcohol abuse, and anemia. States seizure today was witnessed by sister, and that seizures have been occurring daily for the past 4 days. Patient complains of mild headache and admits to being seen in ED yesterday status post seizure. Patient as told he sustained rib fractures on the left side. Patient confirms he is compliant with 500mg Keppra BID, but note that neurologist advised that the dosage may increase to 1500mg BID. (+) LOC. (-) neck pain, back pain, SOB, vomiting, diarrhea, nausea, or extremity injury. PCP: [facility] Neurologist: Dr. Kaur Past Medical History Reviewed: Historical Data, Nursing Documentation, Vital Signs Vital Signs: Last Vital Signs Temp 97.9 F 09/04/17 17:12 Pulse 103 H 09/04/17 21:10 Resp 18 09/04/17 21:10 BP 119/52 L 09/04/17 21:10 Pulse Ox 99 09/04/17 21:10 - Medical History PMH: Anemia, Back Problems (herniated disc), Deep Vein Thrombosis, Fractures ( rib fx, left shoulder, Left hand 5th digit, Humerus fracture), Gastritis, Pancreatitis, Pneumonia, Seizures, Chronic Pain (left shoulder) Denies: HTN (Denies as per patient), Migraine, Parkinson's Disease, Chronic Kidney Disease - Surgical History Surgical History: Endoscopy - Family History Family History: States: Unknown Family Hx - Immunization History Hx Tetanus Toxoid Vaccination: Yes - Home Medications Home Medications: Ambulatory Orders Medication Instructions Recorded levETIRAcetam [Keppra] 500 mg PO BID 10/16/16 Naproxen [Naprosyn] 500 mg PO Q12H #20 tab 08/28/17 traMADol [Ultram] 50 mg PO TID PRN #6 tab 08/30/17 Lactulose [Generlac] 30 ml PO TID 08/31/17 Omeprazole [Omeprazole] 40 mg PO BID 08/31/17 Famotidine [Pepcid] 20 mg PO Q12 #20 tab 09/03/17 - Allergies Allergies/Adverse Reactions: Allergies Allergy/AdvReac Type Severity Reaction Status Date / Time aspirin Allergy NAUSEA Verified 09/03/17 05:59 naproxen Allergy RASH Verified 09/03/17 19:08 Review of Systems ROS Statement: Except As Marked, All Systems Reviewed And Found Negative Respiratory: Negative for: Shortness of Breath Gastrointestinal: Negative for: Nausea, Vomiting, Diarrhea Musculoskeletal: Positive for: Other. Negative for: Neck Pain, Arm Pain, Back Pain, Hand Pain, Leg Pain Neurological: Positive for: Seizures, Headache Physical Exam - Reviewed Nursing Documentation Reviewed: Yes Vital Signs Reviewed: Yes - Physical Exam Comments: GENERAL APPEARANCE: Patient is awake, alert, oriented x 3, in no acute distress. ill kept in appearance, +odor of alcohol. SKIN: Warm, dry; (-) cyanosis; (-) rash. HEAD: (-) scalp swelling or tenderness, (-) temporal artery tenderness. EYES: (-) conjunctival pallor, (-) scleral icterus. ENMT: (-) sinus tenderness; mucous membranes dry. NECK: (-) tenderness, (-) stiffness, (-) meningismus, (-) lymphadenopathy. CHEST AND RESPIRATORY: (-) rales, (-) rhonchi, (-) wheezes; breath sounds equal bilaterally. Tenderness to left ribs HEART AND CARDIOVASCULAR: (-) irregularity; (-) murmur, (-) gallop. ABDOMEN AND GI: Soft; (-) tenderness. EXTREMITIES: (-) deformity. (+) mild tremors noted to the hands. NEURO AND PSYCH: Mental status as above. drug and alcohol treatment specialist: Pupils are reactive; EOMI; (-) facial asymmetry; tongue and uvula midline. Strength and DTRs symmetric. Babinski normal bilaterally. - Laboratory Results Result Diagrams: 09/04/17 18:20 09/04/17 18:20 - ECG O2 Sat by Pulse Oximetry: 99 (RA) Pulse Ox Interpretation: Normal Medical Decision Making Medical Decision Makin Initial impression: status post seizure, head trauma Initial plan: * CT HEAD * EtOH serum * Labs * NS IV * Ultram 50mg PO * Re-eval Labs reviewed : wbc 3.7, hgb 8.4, etoh 197, mild elevation in LFTs. On re-evaluation, patient stable, has no other complaints at this time. On exam , patient remains AAOx3, in no acute distress. Repeat neuro exam shows no focal findings. CT head still pending at this time. 2000 Patient will be signed out to Ninoska Wells PA-C pending sobriety, CT results, and final disposition. Scribe Attestation: Documented by Fallon Calderon acting as a scribe for Margie Engel PA-C. Scribe Attestation: All medical record entries made by the Scribe were at my direction and personally dictated by me. I have reviewed the chart and agree that the record accurately reflects my personal performance of the history, physical exam, medical decision making, and the department course for this patient. I have also personally directed, reviewed, and agree with the discharge instructions and disposition. Disposition - Clinical Impression Clinical Impression: Seizure disorder - Disposition Disposition Time: 20:00 (Case endorsed to STEPHAN Wells) Condition: GOOD Instructions: Seizures, Adult (DC) Forms: [employer] (Hungarian) - PA / PHONE CIRCUIT OPERATOR / Resident Statement MD/DO has reviewed & agrees with the documentation as recorded.
--- NOTE | 2017-09-04 20:34 | CT ---
EXAM: CT Head Without Intravenous Contrast EXAM DATE/TIME: 09/04/2017 6:13 PM CLINICAL HISTORY: 52 years old, male; Injury or trauma; Fall; Injury Seizured falling. ETOH; Initial encounter; Laceration; Consciousness not specified; Without residual foreign body; Head, generalized; Injury date: Today? ; Injury details: HX dvt. ETOH drug abuser. Seizures TECHNIQUE: Axial computed tomography images of the head/brain without intravenous contrast. All CT scans at this facility use one or more dose reduction techniques, viz.: automated exposure control; ma/kV adjustment per patient size (including targeted exams where dose is matched to indication; i.e. head); or iterative reconstruction technique. Coronal and sagittal reformatted images were created and reviewed. COMPARISON: Prior head CT of 2017-09-02 FINDINGS: BRAIN: Areas of hypodensity in the white matter bilaterally, nonspecific in appearance, but most likely representing chronic small vessel ischemic changes, in a patient of this age. Diffuse, mild, age-related cortical atrophy and ventriculomegaly. No significant acute abnormality identified. No acute hemorrhage seen within the brain. No acute extra-axial fluid collections visualized. No evidence of significant mass effect within the brain. VENTRICLES: See above. BONES/JOINTS: No acute fractures or other acute bony abnormality noted. SOFT TISSUES: No acute abnormality of the visualized soft tissues is seen. SINUSES: Minimal sinus inflammatory disease. There are mucus retention cysts and minimal mucosal thickening in the bilateral sphenoid and maxillary sinuses. Stable appearance of fluid in the left mastoid air cells inferiorly, suspicious for mild mastoiditis. MASTOID AIR CELLS: Stable appearance of the fluid in the left mastoid air cells inferiorly, consistent with mild left mastoiditis. No evidence of left otitis media. IMPRESSION: - No evidence of acute intracranial injury or fractures. - Stable findings compared to a head CT done 2 days prior. Please see above for a full description.
--- NOTE | 2017-09-04 20:39 | ED PDOC ---
- Laboratory Results Result Diagrams: 09/04/17 18:20 09/04/17 18:20 - ECG O2 Sat by Pulse Oximetry: 99 (RA) Pulse Ox Interpretation: Normal Medical Decision Making Medical Decision Making: Pt endorsed pending CT scan of the head. No acute intracranial abnormalities seen today. Disposition - Clinical Impression Clinical Impression: Seizure disorder - POA Present On Arrival: None - Disposition Disposition: Routine/Home Disposition Time: 20:39 Condition: GOOD Instructions: Seizures, Adult (DC) Forms: [employer] (Urdu)
[2017-09-04 21:11] VITALS: BP 119/52
== END 2017-09-04 21:15 | disposition home or self-care (01) ==
LOC: H.ER 16:55
DX: G40.909 Epilepsy, unspecified, not intractable, without status epilepticus (principal); S09.90XA Unspecified injury of head, initial encounter; W19.XXXA Unspecified fall, initial encounter; Y92.89 Other specified places as the place of occurrence of the external cause; G89.29 Other chronic pain; K85.90 Acute pancreatitis without necrosis or infection, unspecified; Z86.718 Personal history of other venous thrombosis and embolism
CPT/HCPCS: 70450; 80053; 80320; 85025; 96360; 96361; 99285; J7040

== ENCOUNTER 2017-09-11 14:09 | Emergency (ER) | payer MEDICAID ==
[2017-09-11 14:09] VITALS: BMI 23.3
[2017-09-11 14:27] VITALS: RESP 18; TEMP 97.7
--- NOTE | 2017-09-11 14:34 | ED PDOC ---
HPI: General Adult Time Seen by Provider: 09/11/17 14:33 Chief Complaint (Nursing): Headache Chief Complaint (Provider): alcohol abuse, headache History Per: Patient Additional Complaint(s): 52-year-old male with history of alcohol abuse and seizure disorders presents with headache and left rib pain ongoing for about 2 weeks. Patient states he had a couple of drinks earlier today. Patient denies any shortness of breath or dyspnea on exertion. No fever or chills. Plan with his Keppra medication and the last seizure he had was about 5 days ago. Patient is well-known to emergency department for frequent visits for same complaints as of late. PMD: none Past Medical History Reviewed: Historical Data, Nursing Documentation, Vital Signs Vital Signs: Last Vital Signs Temp 97.7 F 09/11/17 14:24 Pulse 84 09/11/17 14:24 Resp 18 09/11/17 14:24 BP 120/72 09/11/17 14:24 Pulse Ox 100 09/11/17 15:58 - Medical History PMH: Anemia, Back Problems (herniated disc), Deep Vein Thrombosis, Fractures ( rib fx, left shoulder, Left hand 5th digit, Humerus fracture), Gastritis, Pancreatitis, Pneumonia, Seizures, Chronic Pain (left shoulder) - Surgical History Surgical History: Endoscopy - Family History Family History: States: No Known Family Hx - Social History Current smoker - smoking cessation education provided: Yes Alcohol: > 2 Drinks/Day Drugs: Denies - Home Medications Home Medications: Ambulatory Orders Medication Instructions Recorded levETIRAcetam [Keppra] 500 mg PO BID 10/16/16 Naproxen [Naprosyn] 500 mg PO Q12H #20 tab 08/28/17 traMADol [Ultram] 50 mg PO TID PRN #6 tab 08/30/17 Lactulose [Generlac] 30 ml PO TID 08/31/17 Omeprazole [Omeprazole] 40 mg PO BID 08/31/17 Famotidine [Pepcid] 20 mg PO Q12 #20 tab 09/03/17 - Allergies Allergies/Adverse Reactions: Allergies Allergy/AdvReac Type Severity Reaction Status Date / Time aspirin Allergy NAUSEA Verified 09/03/17 05:59 naproxen Allergy RASH Verified 09/03/17 19:08 Review of Systems ROS Statement: Except As Marked, All Systems Reviewed And Found Negative Constitutional: Negative for: Fever, Chills Cardiovascular: Positive for: Other (left rib pain s/p fall 2 weeks ago). Negative for: Chest Pain Respiratory: Negative for: Cough Gastrointestinal: Negative for: Nausea, Vomiting, Abdominal Pain Genitourinary Male: Negative for: Dysuria Neurological: Positive for: Headache. Negative for: Seizures (no seizure in 5 days), Dizziness Physical Exam - Reviewed Nursing Documentation Reviewed: Yes Vital Signs Reviewed: Yes - Physical Exam Appears: Positive for: Well, Non-toxic, No Acute Distress Skin: Negative for: Rash Eye Exam: Positive for: Normal appearance Cardiovascular/Chest: Positive for: Regular Rate, Rhythm Respiratory: Positive for: Normal Breath Sounds Gastrointestinal/Abdominal: Positive for: Soft. Negative for: Tenderness Back: Positive for: Normal Inspection Extremity: Positive for: Normal ROM Neurologic/Psych: Positive for: Alert, Oriented - Laboratory Results Result Diagrams: 09/11/17 15:29 09/11/17 15:29 - ECG O2 Sat by Pulse Oximetry: 100 Pulse Ox Interpretation: Normal Medical Decision Making Medical Decision Makin52 year old male with history of alcohol abuse and seizures Plan: CBC CMP BAL IVF IV toradol Labs reviewed, chronic changes noted. No acute finding. Patient ate sandwich in ED. Patient was referred to clinic for follow up. Disposition - Clinical Impression Clinical Impression: Alcohol abuse - Patient ED Disposition Is Patient to be Admitted: No Counseled Patient/Family Regarding: Studies Performed, Need For Followup - Disposition Referrals: [facility] [Outside] Disposition: Routine/Home Disposition Time: 17:16 Condition: STABLE Additional Instructions: Follow-up with clinic Instructions: Alcohol Abuse and Alcoholism (DC) Forms: [employer] (Maltese) Results - Lab Results Lab Results: 09/11/17 09/11/17 15:29 15:29 WBC 3.3 L RBC 2.58 L Hgb 8.5 L Hct 25.5 L MCV 99.0 H D MCH 32.9 H MCHC 33.2 RDW 20.1 H Plt Count 64 L MPV 7.6 Neut % (Auto) 59.9 Lymph % (Auto) 17.8 L [place] % (Auto) 15.7 H Eos % (Auto) 3.6 Baso % (Auto) 3.0 H Neut # (Auto) 2.0 Lymph # (Auto) 0.6 L [place] # (Auto) 0.5 Eos # (Auto) 0.1 Baso # (Auto) 0.1 Sodium 143 Potassium 3.7 Chloride 110 H Carbon Dioxide 22 Anion Gap 15 BUN 21 H Creatinine 0.8 Est GFR ( Amer) > 60 Est GFR (Non-Af Amer) > 60 Random Glucose 92 Calcium 7.8 L Total Bilirubin 4.1 H AST 91 H ALT 56 Alkaline Phosphatase 256 H D Total Protein 6.6 Albumin 2.7 L Globulin 3.9 Albumin/Globulin Ratio 0.7 L Alcohol, Quantitative 104 H
[2017-09-11] MEDS ORDERED: Sodium Chloride 0.9% 1,000 ML IV STA (14:56)
[2017-09-11 15:33] LABS: BASO # 0.1 K/uL (0.0-0.2); EOS # 0.1 K/uL (0.0-0.7); EOS % 3.6 % (0.0-4.0); HEMOGLOBIN 8.5 g/dL (12.0-18.0); LYMPH # 0.6 K/uL (1.0-4.3); LYMPH % 17.8 % (20.0-40.0); MEAN CORPUSCULAR HEMOGLOBIN 32.9 pg (27.0-31.0); MEAN CORPUSCULAR HGB CONC 33.2 g/dL (33.0-37.0); MEAN PLATELET VOLUME 7.6 fl (7.2-11.7); MONO # 0.5 K/uL (0.0-0.8); MONO % 15.7 % (0.0-10.0); NEUT % 59.9 % (50.0-75.0); NRBC % 0.1 % (0.0-0.0); RBC 2.58 Mil/uL (4.40-5.90); RED CELL DISTRIBUTION WIDTH 20.1 % (11.5-14.5); WHITE BLOOD COUNT 3.3 K/uL (4.8-10.8)
[2017-09-11 15:55] LABS: ALB/GLOB RATIO 0.7 (1.0-2.1); ALBUMIN 2.7 g/dL (3.5-5.0); ALT/SGPT 56 U/L (21-72); AST/SGOT 91 U/L (17-59); BLOOD UREA NITROGEN 21 mg/dl (9-20); CALCIUM 7.8 mg/dL (8.4-10.2); GFR AFRICAN-AMERICAN > 60; GFR NON-AFRICAN AMERICAN > 60
[2017-09-11 19:15] VITALS: BP 132/77; PULSE 88; O2SAT 98
== END 2017-09-11 19:15 | disposition home or self-care (01) ==
LOC: H.ER 14:09
DX: F10.10 Alcohol abuse, uncomplicated (principal); R51 Headache; Z86.718 Personal history of other venous thrombosis and embolism
CPT/HCPCS: 80053; 80320; 85025; 99284; J1885; J7040

== ENCOUNTER 2017-09-17 10:24 | Emergency (ER) | payer MEDICAID ==
[2017-09-17 10:24] VITALS: BMI 23.3
[2017-09-17 10:30] VITALS: BP 118/67; PULSE 66; TEMP 97; O2SAT 95
[2017-09-17 10:45] VITALS: RESP 18
[2017-09-17] MEDS ORDERED: Lidocaine 5% Patch TD STA (11:16)
--- NOTE | 2017-09-17 11:16 | ED PDOC ---
HPI: Back Time Seen by Provider: 09/17/17 10:39 Chief Complaint (Nursing): Back Pain History Per: Patient Additional Complaint(s): Pt. states 3 days ago he slipped and fell striking his lower back against a TV. He has had pain since. States pain starts in the lower back and radiates down both legs. Reports pain is worse with movement. Denies dysuria, hematuria, incontinence, saddle paresthesias, abd pain, N/V/D, fever. Past Medical History Reviewed: Historical Data, Nursing Documentation, Vital Signs Vital Signs: Last Vital Signs Temp 97 F L 09/17/17 10:40 Pulse 66 09/17/17 10:40 Resp 18 09/17/17 10:40 BP 118/67 09/17/17 10:40 Pulse Ox 95 09/17/17 10:40 - Medical History PMH: Anemia, Back Problems (herniated disc), Deep Vein Thrombosis, Fractures ( rib fx, left shoulder, Left hand 5th digit, Humerus fracture), Gastritis, Pancreatitis, Pneumonia, Seizures, Chronic Pain (left shoulder) Denies: Migraine, Chronic Kidney Disease - Surgical History Surgical History: Endoscopy - Family History Family History: States: No Known Family Hx - Immunization History Hx Tetanus Toxoid Vaccination: Yes Hx Influenza Vaccination: Yes Hx Pneumococcal Vaccination: No - Home Medications Home Medications: Ambulatory Orders Medication Instructions Recorded levETIRAcetam [Keppra] 500 mg PO BID 10/16/16 Naproxen [Naprosyn] 500 mg PO Q12H #20 tab 08/28/17 traMADol [Ultram] 50 mg PO TID PRN #6 tab 08/30/17 Lactulose [Generlac] 30 ml PO TID 08/31/17 Omeprazole [Omeprazole] 40 mg PO BID 08/31/17 Famotidine [Pepcid] 20 mg PO Q12 #20 tab 09/03/17 Cyclobenzaprine [Flexeril] 5 mg PO BID PRN #6 tab 09/17/17 - Allergies Allergies/Adverse Reactions: Allergies Allergy/AdvReac Type Severity Reaction Status Date / Time aspirin Allergy NAUSEA Verified 09/13/17 13:05 ibuprofen [From Motrin] Allergy Verified 09/13/17 13:05 naproxen Allergy RASH Verified 09/13/17 13:05 NSAIDS (Non-Steroidal Allergy Verified 09/13/17 13:05 Anti-Inflamma Review of Systems ROS Statement: Except As Marked, All Systems Reviewed And Found Negative Musculoskeletal: Positive for: Back Pain Physical Exam - Physical Exam Appears: Positive for: Well, Non-toxic, No Acute Distress Head Exam: Positive for: ATRAUMATIC, NORMAL INSPECTION, NORMOCEPHALIC Skin: Positive for: Normal Color, Warm. Negative for: Rash Eye Exam: Positive for: Normal appearance. Negative for: Scleral icterus Neck: Positive for: Normal, Painless ROM Respiratory: Positive for: Normal Breath Sounds. Negative for: Respiratory Distress Gastrointestinal/Abdominal: Positive for: Normal Exam, Soft. Negative for: Tenderness Back: Positive for: Normal Inspection, Muscle Spasm (b/l paralumbar). Negative for: L CVA Tenderness, R CVA Tenderness Extremity: Positive for: Normal ROM, Other (SLR negative b/l). Negative for: Calf Tenderness (b/l) Neurologic/Psych: Positive for: Alert, Oriented, Gait (steady, unassisted). Negative for: Aphasia, Facial Droop - ECG O2 Sat by Pulse Oximetry: 95 - Radiology X-Ray: Interpreted by Me (LS spine x-ray) X-Ray Interpretation: No Acute Disease - Progress ED Course And Treament: LS spine x-ray, udip, lidoderm, flexeril PO ordered. 1150 On re-evaluation, pt. seen eating chips and sandwich. Reports moderate analgesia. Gait steady unassisted. No distress. Disposition - Clinical Impression Clinical Impression: Low back pain - Patient ED Disposition Is Patient to be Admitted: No - Disposition Referrals: Nishant Moreno MD [Primary Care Provider] - Disposition: Routine/Home Disposition Time: 11:53 Condition: IMPROVED Prescriptions: Cyclobenzaprine [Flexeril] 5 mg PO BID PRN #6 tab PRN Reason: Muscle Spasm Instructions: Low Back Pain (DC) Forms: [employer] (Citizen Of [place])
--- NOTE | 2017-09-17 11:32 | RAD ---
PROCEDURE: Radiographs of the Lumbar Spine. HISTORY: pain COMPARISON: CT scan of the abdomen and pelvis dated 08/30/2017. FINDINGS: BONES: Normal alignment. No listhesis. No fracture. DISC SPACES: Unremarkable. OTHER FINDINGS: Partially imaged tips shunt redemonstrated. IMPRESSION: Unremarkable radiographs of the lumbar spine.
== END 2017-09-17 12:43 | disposition home or self-care (01) ==
LOC: SUPCPDRO 10:24 → H.ER 10:24
DX: M54.5 Low back pain (principal); W01.0XXA Fall on same level from slipping, tripping and stumbling without subsequent striking against object, initial encounter; Y92.89 Other specified places as the place of occurrence of the external cause; G89.29 Other chronic pain; K85.90 Acute pancreatitis without necrosis or infection, unspecified; Z86.718 Personal history of other venous thrombosis and embolism; Z88.6 Allergy status to analgesic agent

== ENCOUNTER 2017-09-20 18:16 | Emergency (ER) | payer MEDICAID ==
[2017-09-20 18:17] VITALS: BMI 23.3
[2017-09-20 18:30] VITALS: O2SAT 97
--- NOTE | 2017-09-20 19:18 | ED PDOC ---
HPI: General Adult Time Seen by Provider: 09/20/17 19:07 Chief Complaint (Nursing): Seizure Chief Complaint (Provider): possible seizure History Per: Patient, EMS Additional Complaint(s): 52 year old male with history of etoh abuse and seizure disorder presents to emergency department for evaluation of head injury and seizure sustained prior to arrival. Patient's family members state that he fell and had a seizure. Patient complains of headache upon arrival. PMD: none Past Medical History Reviewed: Historical Data, Nursing Documentation, Vital Signs Vital Signs: Last Vital Signs Temp 98.4 F 09/20/17 18:28 Pulse 85 09/20/17 18:28 Resp 16 09/20/17 18:28 BP 104/65 09/20/17 18:28 Pulse Ox 97 09/20/17 19:19 - Medical History PMH: Anemia, Back Problems (herniated disc), Deep Vein Thrombosis, Fractures ( rib fx, left shoulder, Left hand 5th digit, Humerus fracture), Gastritis, Pancreatitis, Seizures, Chronic Pain (left shoulder) - Surgical History Surgical History: Endoscopy - Family History Family History: States: No Known Family Hx - Living Arrangements Living Arrangements: With Family - Social History Current smoker - smoking cessation education provided: Yes Alcohol: > 2 Drinks/Day Drugs: Denies - Home Medications Home Medications: Ambulatory Orders Medication Instructions Recorded levETIRAcetam [Keppra] 500 mg PO BID 10/16/16 Naproxen [Naprosyn] 500 mg PO Q12H #20 tab 08/28/17 traMADol [Ultram] 50 mg PO TID PRN #6 tab 08/30/17 Lactulose [Generlac] 30 ml PO TID 08/31/17 Omeprazole [Omeprazole] 40 mg PO BID 08/31/17 Famotidine [Pepcid] 20 mg PO Q12 #20 tab 09/03/17 Cyclobenzaprine [Flexeril] 5 mg PO BID PRN #6 tab 09/17/17 - Allergies Allergies/Adverse Reactions: Allergies Allergy/AdvReac Type Severity Reaction Status Date / Time aspirin Allergy NAUSEA Verified 09/20/17 18:26 ibuprofen [From Motrin] Allergy NAUSEA Verified 09/20/17 18:26 naproxen Allergy RASH Verified 09/20/17 18:26 NSAIDS (Non-Steroidal Allergy NAUSEA Verified 09/20/17 18:26 Anti-Inflamma Review of Systems ROS Statement: Except As Marked, All Systems Reviewed And Found Negative Constitutional: Negative for: Fever Cardiovascular: Negative for: Chest Pain Gastrointestinal: Negative for: Nausea, Vomiting Neurological: Positive for: Seizures, Headache Psych: Positive for: Other (etoh) Physical Exam - Reviewed Nursing Documentation Reviewed: Yes Vital Signs Reviewed: Yes - Physical Exam Appears: Positive for: Well, Non-toxic, No Acute Distress Skin: Negative for: Rash Eye Exam: Positive for: Normal appearance Cardiovascular/Chest: Positive for: Regular Rate, Rhythm Respiratory: Positive for: Normal Breath Sounds Extremity: Positive for: Normal ROM Neurologic/Psych: Positive for: Alert - ECG O2 Sat by Pulse Oximetry: 97 Pulse Ox Interpretation: Normal Medical Decision Making Medical Decision Makin52 year old with headache and seizure Plan: CBC CMP BAL Lipase CT head IVF Disposition - Clinical Impression Clinical Impression: EtOH dependence, Alcohol withdrawal seizure - Patient ED Disposition Is Patient to be Admitted: Transfer of Care - Disposition Disposition: Transfer of Care Disposition Time: 20:00 Condition: FAIR Forms: [employer] ([place]) Patient Signed Over To: Ashley Gibson Handoff Comments: Signed out pending diagnostic testing results and final disposition
[2017-09-20] MEDS ORDERED: Sodium Chloride 0.9% 1,000 ML IV STA (19:50)
[2017-09-20] MEDS ORDERED: levETIRAcetam 500 MG in Sodium Chloride 0.9% 100 ML IVPB STA (20:04)
[2017-09-20 20:19] LABS: BASO % 0.9 % (0.0-2.0); EOS # 0.3 K/uL (0.0-0.7); HEMOGLOBIN 7.8 g/dL (12.0-18.0); LYMPH # 1.3 K/uL (1.0-4.3); LYMPH % 22.1 % (20.0-40.0); MEAN CELL VOLUME 100.5 fl (80.0-94.0); MEAN CORPUSCULAR HGB CONC 32.8 g/dL (33.0-37.0); MEAN PLATELET VOLUME 7.4 fl (7.2-11.7); MONO # 0.7 K/uL (0.0-0.8); MONO % 11.6 % (0.0-10.0); NEUT # 3.4 K/uL (1.8-7.0); NEUT % 59.4 % (50.0-75.0); NRBC % 0.1 % (0.0-0.0); RBC 2.36 Mil/uL (4.40-5.90); RED CELL DISTRIBUTION WIDTH 19.2 % (11.5-14.5); WHITE BLOOD COUNT 5.7 K/uL (4.8-10.8)
[2017-09-20 20:31] LABS: ALB/GLOB RATIO 0.7 (1.0-2.1); ALBUMIN 2.8 g/dL (3.5-5.0); ALT/SGPT 66 U/L (21-72); AST/SGOT 118 U/L (17-59); BLOOD UREA NITROGEN 16 mg/dl (9-20); CALCIUM 8.1 mg/dL (8.4-10.2); GFR AFRICAN-AMERICAN > 60; GFR NON-AFRICAN AMERICAN > 60; LIPASE 185 U/L (23-300)
[2017-09-20 21:16] LABS: BENZODIAZEPINES, UR NEGATIVE (NEGATIVE)
[2017-09-20 21:17] LABS: BARBITURATES, UR NEGATIVE (NEGATIVE); OPIATES, UR NEGATIVE (NEGATIVE); PHENCYCLIDINE, UR NEGATIVE (NEGATIVE)
[2017-09-21 00:31] VITALS: BP 115/59; PULSE 91; RESP 18; TEMP 98.2
--- NOTE | 2017-09-21 00:44 | ED PDOC ---
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 All CT scans at this facility use one or more dose reduction techniques, viz.: automated exposure control; ma/kV adjustment per patient size (including targeted exams where dose is matched to indication; i.e. head); or iterative reconstruction technique. COMPARISON: CT - HEAD W/O CONTRAST 2017-09-04 19:10 FINDINGS: Brain: [id number] atrophy. No intracranial hemorrhage. No mass. Several scattered foci of decreased attenuation within periventricular/subcortical white matter. No definite edema. Ventricles: No hydrocephalus. Bones/joints: No acute fracture. Soft tissues: Unremarkable. Sinuses: Scattered minimal to mild mucosal thickening. RIGHT maxillary retention cyst. Mastoid air cells: Mild opacification/fluid of LEFT mastoid, stable. Minimal opacification/fluid of RIGHT mastoid, stable. Orbits: Unremarkable as visualized. IMPRESSION: 1. Nonspecific white matter changes. Acute infarction may be CT occult within first 24 hours. If a focal deficit persists, consider followup CT or MRI for further evaluation. 2. Incidental/non-acute findings are described above. 00:40 Patient awake, alert, oriented x3. Ambulating steady gait. Vitals stable. Labs reviewed, stable/similar to previous Stable for discharge Disposition - Clinical Impression Clinical Impression: EtOH dependence, Seizure - POA Present On Arrival: None - Disposition Disposition: Routine/Home Disposition Time: 01:00 Condition: STABLE Instructions: Alcohol Use - When Is Drinking a Problem?, Seizures
--- NOTE | 2017-09-21 09:24 | CT ---
PROCEDURE: CT HEAD WITHOUT CONTRAST. HISTORY: seizure COMPARISON: 09/04/2017. TECHNIQUE: Axial computed tomography images were obtained through the head/brain without intravenous contrast. Radiation dose: Total exam DLP = 869.79 mGy-cm. This CT exam was performed using one or more of the following dose reduction techniques: Automated exposure control, adjustment of the mA and/or kV according to patient size, and/or use of iterative reconstruction technique. FINDINGS: HEMORRHAGE: No intracranial hemorrhage. BRAIN: Again seen are mild chronic microangiopathic changes. There is no mass, mass effect or abnormal extra-axial fluid collection. VENTRICLES: There is mild global parenchymal volume loss and proportionate enlargement of the ventricles and cortical sulci. CALVARIUM: There is no calvarial fracture or extracranial soft tissue swelling. PARANASAL SINUSES: There is a retention cyst/ polyp in the right maxillary sinus. The remaining included paranasal sinuses are predominantly clear. MASTOID AIR CELLS: Predominantly clear. OTHER FINDINGS: None. IMPRESSION: No acute intracranial abnormality. Mild chronic microangiopathic changes. Mild global parenchymal volume loss, advanced for the patient's age. A preliminary report was provided by [employer].
--- NOTE | 2017-09-21 11:42 | CARD ---
APPROVED REPORT EKG Measurement Heart [id number] <Conclusion> Normal sinus rhythm Normal ECG
== END 2017-09-21 01:13 | disposition home or self-care (01) ==
LOC: H.ER 18:16
DX: F10.239 Alcohol dependence with withdrawal, unspecified (principal); G40.909 Epilepsy, unspecified, not intractable, without status epilepticus; S09.90XA Unspecified injury of head, initial encounter; W19.XXXA Unspecified fall, initial encounter; Y92.89 Other specified places as the place of occurrence of the external cause; Z88.6 Allergy status to analgesic agent; Z86.718 Personal history of other venous thrombosis and embolism; K85.90 Acute pancreatitis without necrosis or infection, unspecified
CPT/HCPCS: 70450; 80053; 80320; 80324; 80345; 80346; 80349; 80353; 80358; 80361; 83690; 83992; 85025; 93005; 96365; 99283; J1953; J7040

== ENCOUNTER 2017-09-21 14:37 | Emergency (ER) | payer MEDICAID ==
[2017-09-21 14:37] VITALS: BMI 23.3
[2017-09-21 14:50] VITALS: BP 126/68; PULSE 116; RESP 20; TEMP 98.3; O2SAT 100
--- NOTE | 2017-09-21 16:14 | ED PDOC ---
HPI: General Adult Time Seen by Provider: 09/21/17 14:56 Chief Complaint (Nursing): Headache Chief Complaint (Provider): Continued head pain, buttocks pain after seizure History Per: Patient History/Exam Limitations: no limitations Onset/Duration Of Symptoms: Days Have you had recent travel within the past 21 days to any of the following countries: [place], [place], [place] or [place]?: No Current Symptoms Are (Timing): Still Present Additional Complaint(s): 52 yo male with history of alcohol abuse, seizures and UGIB presents with head pain. PT states he has been having it since a seizure yesterday. PT was seen after and denies new head trauma. PT states they did not given him anything for pain. Past Medical History Reviewed: Historical Data, Nursing Documentation, Vital Signs Vital Signs: Last Vital Signs Temp 98.3 F 09/21/17 14:46 Pulse 116 H 09/21/17 14:46 Resp 20 09/21/17 14:46 BP 126/68 09/21/17 14:46 Pulse Ox 100 09/21/17 14:46 - Medical History PMH: Anemia, Back Problems (herniated disc), Deep Vein Thrombosis, Fractures ( rib fx, left shoulder, Left hand 5th digit, Humerus fracture), Gastritis, Pancreatitis, Seizures, Chronic Pain (left shoulder) - Surgical History Surgical History: Endoscopy - Family History Family History: States: No Known Family Hx - Living Arrangements Living Arrangements: With Family - Social History Current smoker - smoking cessation education provided: No - Home Medications Home Medications: Ambulatory Orders Medication Instructions Recorded levETIRAcetam [Keppra] 500 mg PO BID 10/16/16 Naproxen [Naprosyn] 500 mg PO Q12H #20 tab 08/28/17 traMADol [Ultram] 50 mg PO TID PRN #6 tab 08/30/17 Lactulose [Generlac] 30 ml PO TID 08/31/17 Omeprazole [Omeprazole] 40 mg PO BID 08/31/17 Famotidine [Pepcid] 20 mg PO Q12 #20 tab 09/03/17 Cyclobenzaprine [Flexeril] 5 mg PO BID PRN #6 tab 09/17/17 - Allergies Allergies/Adverse Reactions: Allergies Allergy/AdvReac Type Severity Reaction Status Date / Time aspirin Allergy NAUSEA Verified 09/21/17 14:46 ibuprofen [From Motrin] Allergy NAUSEA Verified 09/21/17 14:46 naproxen Allergy RASH Verified 09/21/17 14:46 NSAIDS (Non-Steroidal Allergy NAUSEA Verified 09/21/17 14:46 Anti-Inflamma Review of Systems ROS Statement: Except As Marked, All Systems Reviewed And Found Negative Constitutional: Negative for: Fever, Chills Musculoskeletal: Positive for: Other (Buttocks pain) Neurological: Positive for: Headache. Negative for: Altered Mental Status, Dizziness Physical Exam - Reviewed Nursing Documentation Reviewed: Yes Vital Signs Reviewed: Yes - Physical Exam Appears: Positive for: Well, Non-toxic, No Acute Distress Head Exam: Positive for: ATRAUMATIC, NORMAL INSPECTION, NORMOCEPHALIC Skin: Positive for: Normal Color, Warm, DRY Eye Exam: Positive for: Normal appearance ENT: Positive for: Normal ENT Inspection Neck: Positive for: Normal, Painless ROM Cardiovascular/Chest: Positive for: Regular Rate, Rhythm Respiratory: Positive for: Normal Breath Sounds. Negative for: Accessory Muscle Use, Respiratory Distress Gastrointestinal/Abdominal: Positive for: Normal Exam, Soft. Negative for: Tenderness Back: Positive for: Normal Inspection Extremity: Positive for: Normal ROM Neurologic/Psych: Positive for: Alert, Oriented - ECG O2 Sat by Pulse Oximetry: 100 Medical Decision Making Medical Decision Making: Head CT normal. Disposition - Clinical Impression Clinical Impression: Headache - Patient ED Disposition Is Patient to be Admitted: No - Disposition Disposition: Routine/Home Disposition Time: 16:16 Condition: STABLE Instructions: Headache, Adult
== END 2017-09-21 16:47 | disposition home or self-care (01) ==
LOC: H.ER 14:37
DX: R51 Headache (principal); Z88.6 Allergy status to analgesic agent; G89.29 Other chronic pain

== ENCOUNTER 2017-09-21 19:20 | Emergency (ER) | payer MEDICAID ==
[2017-09-21 19:21] VITALS: BMI 23.3
[2017-09-21 19:29] VITALS: BP 117/65; PULSE 115; RESP 16; TEMP 97.3; O2SAT 100
--- NOTE | 2017-09-21 20:16 | ED PDOC ---
HPI: General Adult Time Seen by Provider: 09/21/17 20:10 Chief Complaint (Nursing): Seizure Chief Complaint (Provider): Seizure History Per: Patient History/Exam Limitations: no limitations Onset/Duration Of Symptoms: Days (today) Additional Complaint(s): Pt. states he had a seizure so came to the ED. Pt. was witnessed by police sitting on a bench prior to EMS being called. Pt. fully awake responsive to EMS during their eval as well as during current ER eval. Pt. states he took his keppra today. No drugs or etoh. No weakness. Had a mild headache that is gone now. No neck pain, numbness, tingles, incontinence, constipation. No abd pain. No back pain. No tongue cuts. See here yesterday evening for seizure and head injury. Was dc last night after no findings. Came again today for headache and dc several hours ago. Past Medical History Reviewed: Nursing Documentation, Vital Signs Vital Signs: Last Vital Signs Temp 97.3 F L 09/21/17 19:21 Pulse 115 H 09/21/17 19:21 Resp 16 09/21/17 19:21 BP 117/65 09/21/17 19:21 Pulse Ox 100 09/21/17 20:27 - Medical History PMH: Anemia, Back Problems (herniated disc), Fractures (rib fx, left shoulder, Left hand 5th digit, Humerus fracture), Gastritis, Pancreatitis, Seizures, Chronic Pain (left shoulder) - Surgical History Surgical History: Endoscopy - Family History Family History: States: Unknown Family Hx - Living Arrangements Living Arrangements: With Family - Home Medications Home Medications: Ambulatory Orders Medication Instructions Recorded levETIRAcetam [Keppra] 500 mg PO BID 10/16/16 Ondansetron [Zofran] 4 mg PO Q6H #15 tab 09/26/17 Pantoprazole [Protonix EC Tab] 40 mg PO BID 15 Days #30 ect 09/26/17 - Allergies Allergies/Adverse Reactions: Allergies Allergy/AdvReac Type Severity Reaction Status Date / Time aspirin Allergy NAUSEA Verified 09/29/17 11:59 ibuprofen [From Motrin] Allergy NAUSEA Verified 09/29/17 11:59 naproxen Allergy RASH Verified 09/29/17 11:59 NSAIDS (Non-Steroidal Allergy NAUSEA Verified 09/29/17 11:59 Anti-Inflamma Review of Systems ROS Statement: Except As Marked, All Systems Reviewed And Found Negative Neurological: Positive for: Seizures, Headache (gone now) Physical Exam - Reviewed Nursing Documentation Reviewed: Yes Vital Signs Reviewed: Yes - Physical Exam Appears: Positive for: Non-toxic, No Acute Distress Head Exam: Positive for: ATRAUMATIC, NORMAL INSPECTION, NORMOCEPHALIC Skin: Positive for: Normal Color, Warm, DRY Eye Exam: Positive for: EOMI, Normal appearance, PERRL ENT: Positive for: Normal ENT Inspection, Other (no tongue lacerations). Negative for: Nasal Congestion, Pharyngeal Erythema Neck: Positive for: Normal, Painless ROM, Supple Cardiovascular/Chest: Positive for: Regular Rate, Rhythm. Negative for: Edema Respiratory: Positive for: CNT, Normal Breath Sounds Gastrointestinal/Abdominal: Positive for: Normal Exam, Soft. Negative for: Tenderness Back: Positive for: Normal Inspection. Negative for: L CVA Tenderness, R CVA Tenderness Extremity: Positive for: Normal ROM. 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 Negative for: Motor/Sensory Deficits, Aphasia, Facial Droop - ECG O2 Sat by Pulse Oximetry: 100 Pulse Ox Interpretation: Normal - CT Scan/US ct Other Rad Studies (CT/US): Read By Radiologist Other Rad Interpretation: head 4/2 evening no acute - Progress ED Course And Treament: 2025: Stable. Will get basic blood work. 2044: Pt. last seen AAOx3. Had capacity to make decisions at that time. Pt. now not found in the ER. Was ambulating last seen with no issues. Disposition - Clinical Impression Clinical Impression: Generalized seizure - Patient ED Disposition Is Patient to be Admitted: No - Disposition Disposition: Left W/O Treatment Disposition Time: 15:17 Condition: FAIR
--- NOTE | 2017-09-22 11:30 | CARD ---
APPROVED REPORT EKG Measurement Heart [id number] <Conclusion> Normal sinus rhythm Cannot rule out Anterior infarct, age undetermined Abnormal ECG
== END 2017-09-21 21:00 | disposition left against medical advice (07) ==
LOC: H.ER 19:20
DX: R56.9 Unspecified convulsions (principal); G89.29 Other chronic pain; S09.90XA Unspecified injury of head, initial encounter; Z88.6 Allergy status to analgesic agent

== ENCOUNTER 2017-09-22 10:19 | Emergency (ER) | payer MEDICAID ==
--- NOTE | 2017-09-22 10:38 | ED PDOC ---
HPI: General Adult Time Seen by Provider: 09/22/17 10:37 Chief Complaint (Provider): headache History Per: Patient Additional Complaint(s): 52 year old non-domiciled male with history of alcohol abuse and seizures presents to emergency department complaining of headache. Patient states he had a seizure today. Patient has been seen almost every day for same complaint in the last 2-3 weeks. He admits to being noncompliant with his seizure medication. Patient rates her headache as a 4 out of 10 upon arrival. PMD: none Past Medical History Reviewed: Historical Data, Nursing Documentation, Vital Signs Vital Signs: Last Vital Signs Temp 98.0 F 09/22/17 11:00 Pulse 94 H 09/22/17 11:00 Resp 18 09/22/17 11:00 BP 116/55 L 09/22/17 11:00 Pulse Ox 98 09/22/17 11:00 - Medical History PMH: Anemia, Back Problems (herniated disc), Deep Vein Thrombosis, Fractures ( rib fx, left shoulder, Left hand 5th digit, Humerus fracture), Gastritis, Seizures, Chronic Pain (left shoulder) - Surgical History Surgical History: Endoscopy - Family History Family History: States: No Known Family Hx - Living Arrangements Living Arrangements: Other (non-domiciled) - Social History Current smoker - smoking cessation education provided: Yes Alcohol: > 2 Drinks/Day Drugs: Denies - Home Medications Home Medications: Ambulatory Orders Medication Instructions Recorded levETIRAcetam [Keppra] 500 mg PO BID 10/16/16 Naproxen [Naprosyn] 500 mg PO Q12H #20 tab 08/28/17 traMADol [Ultram] 50 mg PO TID PRN #6 tab 08/30/17 Lactulose [Generlac] 30 ml PO TID 08/31/17 Omeprazole [Omeprazole] 40 mg PO BID 08/31/17 Famotidine [Pepcid] 20 mg PO Q12 #20 tab 09/03/17 Cyclobenzaprine [Flexeril] 5 mg PO BID PRN #6 tab 09/17/17 - Allergies Allergies/Adverse Reactions: Allergies Allergy/AdvReac Type Severity Reaction Status Date / Time aspirin Allergy NAUSEA Verified 09/21/17 14:46 ibuprofen [From Motrin] Allergy NAUSEA Verified 09/21/17 14:46 naproxen Allergy RASH Verified 09/21/17 14:46 NSAIDS (Non-Steroidal Allergy NAUSEA Verified 09/21/17 14:46 Anti-Inflamma Review of Systems ROS Statement: Except As Marked, All Systems Reviewed And Found Negative Constitutional: Negative for: Fever Cardiovascular: Negative for: Chest Pain Respiratory: Negative for: Cough Gastrointestinal: Negative for: Nausea, Vomiting Neurological: Positive for: Seizures, Headache Psych: Positive for: Other (etoh abuse) Physical Exam - Reviewed Nursing Documentation Reviewed: Yes Vital Signs Reviewed: Yes - Physical Exam Appears: Positive for: Non-toxic, No Acute Distress. 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 Negative for: Motor/Sensory Deficits - ECG O2 Sat by Pulse Oximetry: 98 Pulse Ox Interpretation: Normal Medical Decision Making Medical Decision Makin52 year old with headache, no post ictal state, patient is alert and oriented, has steady gate. Patient is requesting tramadol. Medication is contraindicated given history of seizure disorder. Patient given IM Toradol. He was referred to clinic for follow up. Disposition - Clinical Impression Clinical Impression: EtOH dependence, Chronic headache disorder - Patient ED Disposition Is Patient to be Admitted: No Counseled Patient/Family Regarding: Need For Followup - Disposition Referrals: [facility] [Outside] Disposition: Routine/Home Disposition Time: 11:02 Condition: STABLE Instructions: Headache, Adult, Alcohol Abuse and Alcoholism (DC)
[2017-09-22 10:59] VITALS: BMI 22.9
[2017-09-22 11:02] VITALS: BP 116/55; RESP 18; TEMP 98; O2SAT 98
[2017-09-22 11:49] VITALS: PULSE 87
== END 2017-09-22 11:48 | disposition short-term general hospital (02) ==
LOC: H.ER 10:19
DX: F10.20 Alcohol dependence, uncomplicated (principal); R51 Headache; G89.29 Other chronic pain; F17.200 Nicotine dependence, unspecified, uncomplicated; R56.9 Unspecified convulsions; Z86.718 Personal history of other venous thrombosis and embolism; Z88.6 Allergy status to analgesic agent; Z91.19 Patient's noncompliance with other medical treatment and regimen
CPT/HCPCS: 96372; 99283; J1885

== ENCOUNTER 2017-09-23 14:49 | Emergency (ER) | payer MEDICAID ==
[2017-09-23 14:49] VITALS: BMI 22.9
[2017-09-23 15:00] VITALS: BP 115/58; PULSE 105; RESP 16; TEMP 97.2; O2SAT 97
--- NOTE | 2017-09-23 15:20 | ED PDOC ---
HPI: Headache Time Seen by Provider: 09/23/17 15:04 Chief Complaint (Nursing): Headache Chief Complaint (Provider): headache History Per: Patient Additional Complaint(s): 52-year-old male presents to emergency department with persistent headache. Patient states he was seen by his neurologist, Dr. Kaur, this morning and was told to come to ED for CT head. Patient was seen in ED yesterday for same and states that Toradol injection did help headache pain. He rates current headache as 6/10. Patient denies any seizure since yesterday's ED visit. PMD: none Past Medical History Reviewed: Historical Data, Nursing Documentation, Vital Signs Vital Signs: Last Vital Signs Temp 97.2 F L 09/23/17 14:55 Pulse 105 H 09/23/17 14:55 Resp 16 09/23/17 14:55 BP 115/58 L 09/23/17 14:55 Pulse Ox 97 09/23/17 14:55 - Medical History PMH: Anemia, Back Problems (herniated disc), Deep Vein Thrombosis, Fractures ( rib fx, left shoulder, Left hand 5th digit, Humerus fracture), Gastritis, Pancreatitis, Seizures, Chronic Pain (left shoulder) - Surgical History Surgical History: Endoscopy - Family History Family History: States: No Known Family Hx - Living Arrangements Living Arrangements: Other (non-domiciled) - Social History Alcohol: Other (h/o etoh abuse) - Home Medications Home Medications: Ambulatory Orders Medication Instructions Recorded levETIRAcetam [Keppra] 500 mg PO BID 10/16/16 Naproxen [Naprosyn] 500 mg PO Q12H #20 tab 08/28/17 traMADol [Ultram] 50 mg PO TID PRN #6 tab 08/30/17 Lactulose [Generlac] 30 ml PO TID 08/31/17 Omeprazole [Omeprazole] 40 mg PO BID 08/31/17 Famotidine [Pepcid] 20 mg PO Q12 #20 tab 09/03/17 Cyclobenzaprine [Flexeril] 5 mg PO BID PRN #6 tab 09/17/17 - Allergies Allergies/Adverse Reactions: Allergies Allergy/AdvReac Type Severity Reaction Status Date / Time aspirin Allergy NAUSEA Verified 09/21/17 14:46 ibuprofen [From Motrin] Allergy NAUSEA Verified 09/21/17 14:46 naproxen Allergy RASH Verified 09/21/17 14:46 NSAIDS (Non-Steroidal Allergy NAUSEA Verified 09/21/17 14:46 Anti-Inflamma Review of Systems ROS Statement: Except As Marked, All Systems Reviewed And Found Negative Constitutional: Negative for: Fever, Chills Eyes: Negative for: Vision Change Cardiovascular: Negative for: Chest Pain Respiratory: Negative for: Cough Gastrointestinal: Negative for: Nausea, Vomiting Neurological: Positive for: Headache Physical Exam - Reviewed Nursing Documentation Reviewed: Yes Vital Signs Reviewed: Yes - Physical Exam Appears: Positive for: Well, Non-toxic, No Acute Distress Skin: Negative for: Rash Eye Exam: Positive for: Normal appearance ENT: Positive for: Normal ENT Inspection Neck: Positive for: Normal Cardiovascular/Chest: Positive for: Regular Rate, Rhythm Respiratory: Positive for: Normal Breath Sounds Extremity: Positive for: Normal ROM Neurologic/Psych: Positive for: Alert, Oriented, Gait (steady) - ECG O2 Sat by Pulse Oximetry: 97 Pulse Ox Interpretation: Normal Medical Decision Making Medical Decision Makin52 year old with headache Plan: IM toradol CT head 3:45 pm: patient left ED after receiving toradol but before CT was completed. Disposition - Clinical Impression Clinical Impression: Headache - Patient ED Disposition Is Patient to be Admitted: No - Disposition Disposition: Left W/O Treatment (Left ED before treatment complete) Disposition Time: 15:49 Condition: UNKNOWN Forms: [employer] (Hebrew)
== END 2017-09-23 15:54 | disposition left against medical advice (07) ==
LOC: H.ER 14:49
DX: R51 Headache (principal); Z88.6 Allergy status to analgesic agent; G89.29 Other chronic pain; Z86.718 Personal history of other venous thrombosis and embolism
CPT/HCPCS: 96372; 99284; J1885

== ENCOUNTER 2017-09-24 19:09 | Inpatient (IN) | payer MEDICAID ==
[2017-09-24 19:10] VITALS: BMI 22.9
[2017-09-24 22:31] LABS: BASO # 0.1 K/uL (0.0-0.2); BASO % 1.6 % (0.0-2.0); EOS # 0.3 K/uL (0.0-0.7); EOS % 6.9 % (0.0-4.0); LYMPH % 26.5 % (20.0-40.0); MEAN CELL VOLUME 96.4 fl (80.0-94.0); MEAN CORPUSCULAR HEMOGLOBIN 31.7 pg (27.0-31.0); MEAN CORPUSCULAR HGB CONC 32.9 g/dL (33.0-37.0); MEAN PLATELET VOLUME 7.8 fl (7.2-11.7); MONO # 0.6 K/uL (0.0-0.8); MONO % 14.5 % (0.0-10.0); NEUT % 50.5 % (50.0-75.0); NRBC % 0.2 % (0.0-0.0); RBC 1.89 Mil/uL (4.40-5.90); RED CELL DISTRIBUTION WIDTH 18.6 % (11.5-14.5); WHITE BLOOD COUNT 3.9 K/uL (4.8-10.8)
[2017-09-24 22:42] LABS: INR 1.8 (0.9-1.2); PARTIAL THROMBOPLASTIN TIME 36.9 Seconds (25.6-37.1); PROTHROMBIN TIME 19.8 Seconds (9.8-13.1)
--- NOTE | 2017-09-24 22:56 | ED PDOC ---
HPI: Abdomen Time Seen by Provider: 09/24/17 20:26 Chief Complaint (Nursing): Abdominal Pain Chief Complaint (Provider): Vomiting blood History Per: Patient History/Exam Limitations: no limitations Onset/Duration Of Symptoms: Hrs (today) Current Symptoms Are (Timing): Still Present Associated Symptoms: Vomiting (x3 dark blood), Other (dark stools, light headedness, headache) Additional Complaint(s): Shreyas Sepulveda is a 52 year old male, with a past medical history of GI bleed, who presents to the emergency for vomiting blood today. Patient reports x3 episodes of dark blood vomit, and dark stools as well. Patient is complaining of some abdominal discomfort, light headedness and headache. Patient has a history of alcoholism in the past but denies drinking alcohol recently. No further medical complaints. PMD: Clinic. Past Medical History Reviewed: Historical Data, Nursing Documentation, Vital Signs Vital Signs: Last Vital Signs Temp 98.1 F 09/24/17 23:58 Pulse 123 H 09/24/17 23:58 Resp 20 09/24/17 23:58 BP 115/65 09/24/17 23:58 Pulse Ox 100 09/24/17 23:04 - Medical History PMH: Anemia, Back Problems (herniated disc), Deep Vein Thrombosis, Fractures ( rib fx, left shoulder, Left hand 5th digit, Humerus fracture), Gastritis, Pancreatitis, Seizures, Chronic Pain (left shoulder) - Surgical History Surgical History: Endoscopy - Family History Family History: States: Unknown Family Hx - Home Medications Home Medications: Ambulatory Orders Medication Instructions Recorded levETIRAcetam [Keppra] 500 mg PO BID 10/16/16 - Allergies Allergies/Adverse Reactions: Allergies Allergy/AdvReac Type Severity Reaction Status Date / Time aspirin Allergy NAUSEA Verified 09/24/17 19:12 ibuprofen [From Motrin] Allergy NAUSEA Verified 09/24/17 19:12 naproxen Allergy RASH Verified 09/24/17 19:12 NSAIDS (Non-Steroidal Allergy NAUSEA Verified 09/24/17 19:12 Anti-Inflamma Review of Systems ROS Statement: Except As Marked, All Systems Reviewed And Found Negative Cardiovascular: Positive for: Light Headedness Gastrointestinal: Positive for: Vomiting (dark blood), Abdominal Pain ( discomfort), Melena (dark stool ) Neurological: Positive for: Headache Physical Exam - Reviewed Nursing Documentation Reviewed: Yes Vital Signs Reviewed: Yes - Physical Exam Appears: Positive for: Non-toxic Head Exam: Positive for: ATRAUMATIC, NORMAL INSPECTION, NORMOCEPHALIC Skin: Positive for: Warm, Dry, Pallor Eye Exam: Positive for: Normal appearance, EOMI, PERRL ENT: Positive for: Pharynx Is (clear. No signs of blood in oral cavity), Other ( moist mucous membrane) Neck: Positive for: Painless ROM, Supple Cardiovascular/Chest: Positive for: Tachycardia. Negative for: Murmur Respiratory: Positive for: Normal Breath Sounds. Negative for: Respiratory Distress Gastrointestinal/Abdominal: Positive for: Tenderness (mild epigastric tenderness to palpation) Back: Positive for: Normal Inspection. Negative for: L CVA Tenderness, R CVA Tenderness, Vertebral Tenderness Extremity: Positive for: Normal ROM (upper and lower extremities), Pedal Edema ( b/l lower leg pitting edema). Negative for: Deformity, Swelling Neurologic/Psych: Positive for: Alert, Oriented. Negative for: Motor/Sensory Deficits - Laboratory Results Result Diagrams: 09/24/17 22:24 09/24/17 22:24 - ECG O2 Sat by Pulse Oximetry: 100 (RA) Pulse Ox Interpretation: Normal - Progress Re-evaluation Time: 23:00 Condition: Unchanged - Critical Care Total Time (In Min): 30 Documented Critical Care: Time excludes all time spent performint seperately billable procedures Medical Decision Making Medical Decision Making: Initial Impression: hematemesis. Differential diagnosis includes but not limited to GI bleed, anemia, ulcer, ETOH intoxication, dehydration, liver cirrhosis. Initial Plan: --Crossmatch --Type and screen --EKG --Alcohol serum --CMP --Drug screen, urine --Lipase --Magnesium --Phosphorus --Urine dipstick --CBC w/ differential --PTT --PT --Chest portable [RAD] --Protonix Inj 80 mg IVP --Zofran ODT 4 mg PO --Reevaluation Severe anemia hgb 6. JORDAN Fu FP resident for hospitalization. JORDAN Cummins GI Fellow for GI bleed. JORDAN Cummins Hospitalist for ICU placement IV Protonix drop ordered. Transfusion ordered. JORDAN pt findings and plan of care. Reviewed risk benefits of transfusion for consent. Scribe Attestation: Documented by Giovany Puri, acting as a scribe for Fatimah Morillo MD Provider Scribe Attestation: All medical record entries made by the Scribe were at my direction and personally dictated by me. I have reviewed the chart and agree that the record accurately reflects my personal performance of the history, physical exam, medical decision making, and the department course for this patient. I have also personally directed, reviewed, and agree with the discharge instructions and disposition. Disposition - Clinical Impression Clinical Impression: GI bleed Counseled Patient/Family Regarding: Studies Performed, Diagnosis - Disposition Disposition Time: 22:45 Condition: CRITICAL - Pt Status Changed To: Hospital Disposition Of: Inpatient - Admit Certification Admit to Inpatient:: After my assessment, the patient will require hospitalization for at least two midnights. This is because of the severity of symptoms shown, intensity of services needed, and/or the medical risk in this patient being treated as an outpatient. - POA Present On Arrival: None
[2017-09-24 23:14] LABS: ALB/GLOB RATIO 0.6 (1.0-2.1); ALBUMIN 2.3 g/dL (3.5-5.0); ALT/SGPT 59 U/L (21-72); AST/SGOT 99 U/L (17-59); BLOOD UREA NITROGEN 21 mg/dl (9-20); CALCIUM 8.1 mg/dL (8.4-10.2); GFR AFRICAN-AMERICAN > 60; GFR NON-AFRICAN AMERICAN > 60; LIPASE 154 U/L (23-300)
--- NOTE | 2017-09-24 23:57 | CP.PCM.CON ---
History of Present Illness - History of Present Illness History of Present Illness: Attending: Dr Vasquez Reason for Consult: Critical care management Chief Complaint: vomiting Blood/Abdominal pain The patient was seen and examined in the ED HPI: 52 years old male with hx of seizure, chronic back pain and Alcohol Liver Cirrhosis with TIPs procedure and multiple admissions for upper GI bleed and multiple blood transfusions. He comes within the hour referring vomiting of blood X3 associated with lightheadedness and epigastric pain radiating to the periumbilical area and headache. The vomiting started after he drank some Tea. He also referred black stool over the last few days. His last alcohol drink was about one week ago. no fever, Coughing, SOB, Palpitation, nor visible hematuria. PMH: Anemia, Back Problems (herniated disc), Deep Vein Thrombosis, Fractures ( rib fx, left shoulder, Left hand 5th digit, Humerus fracture), Gastritis, Pancreatitis, Seizures, Chronic Pain (left shoulder)Cholelithiasis; GI Bleed; Alcoholic Liver Disease; Gastric Varices in the past PSH: TIPS Procedure; multiple EGD SH: No illegal drug use; Alcohol Abuse; Light Cigarette Smoker; live with Sister ; unemployed FH: father with ND; Mother with Breast Ca Allergies: ASA; NSAID Medication: Reviewed Review of Systems - Constitutional Constitutional: Headache. absent: Chills, Fatigue, Fever - EENT Eyes: Requires Corrective Lenses. absent: Floaters, Photophobia, Sees Flashes Ears: absent: Decreased Hearing, Ear Discharge, Tinnitus Nose/Mouth/Throat: absent: Epistaxis, Nasal Congestion, Sinus Pain, Sinus Pressure - Cardiovascular Cardiovascular: Leg Edema. absent: Chest Pain, Dyspnea - Respiratory Respiratory: absent: Cough, Dyspnea, Wheezing, Stridor - Gastrointestinal Gastrointestinal: Abdominal Pain, Hematemesis, Melena, Nausea, Vomiting - Genitourinary Genitourinary: absent: Dysuria, Flank Pain, Hematuria, Urinary Frequency - Musculoskeletal Musculoskeletal: Back Pain. absent: Numbness, Stiffness - Integumentary Integumentary: Swelling. absent: Pruritus, Rash, Skin Ulcer, Sores, Striae - Neurological Neurological: Dizziness, Headaches. absent: Confusion, Focal Weakness - Psychiatric Psychiatric: absent: Anxiety, Depression, Panic Attacks - Endocrine Endocrine: Palpitations. absent: Polydipsia, Polyphagia, Polyuria - Hematologic/Lymphatic Hematologic: absent: Easy Bleeding, Easy Bruising Past Patient History - Infectious Disease Hx of Infectious Diseases: None - Tetanus Immunizations Tetanus Immunization: Unknown - Past Medical History & Family History Past Medical History?: Yes - Past Social History Smoking Status: Light Smoker < 10 Cigarettes Daily Chewing Tobacco Use: No Cigar Use: No Alcohol: > 2 Drinks/Day Home Situation {Lives}: With Family - CARDIAC Hx Cardiac Disorders: No - PULMONARY Hx Respiratory Disorders: No - NEUROLOGICAL Hx Seizures: Yes - HEENT Hx HEENT Problems: No - RENAL Hx Chronic Kidney Disease: No - ENDOCRINE/METABOLIC Hx Endocrine Disorders: No Hx Diabetes Mellitus Type 2: No - HEMATOLOGICAL/ONCOLOGICAL Hx Anemia: Yes - INTEGUMENTARY Hx Cellulitis: Yes - MUSCULOSKELETAL/RHEUMATOLOGICAL Hx Fractures: Yes (rib fx, left shoulder, Left hand 5th digit, Humerus fracture) - GASTROINTESTINAL Hx Esophageal Varices: Yes Hx Gastritis: Yes Hx Pancreatitis: Yes - GENITOURINARY/GYNECOLOGICAL Hx Genitourinary Disorders: No - PSYCHIATRIC Hx Psychophysiologic Disorder: No Hx Substance Use: No (DENIES) - SURGICAL HISTORY Other/Comment: FINGER SX AND "STENT IN MY LIVER"(TIPS) - ANESTHESIA Hx Anesthesia: Yes Hx Anesthesia Reactions: No Hx Malignant Hyperthermia: No Meds Allergies/Adverse Reactions: Allergies Allergy/AdvReac Type Severity Reaction Status Date / Time aspirin Allergy NAUSEA Verified 09/24/17 19:12 ibuprofen [From Motrin] Allergy NAUSEA Verified 09/24/17 19:12 naproxen Allergy RASH Verified 09/24/17 19:12 NSAIDS (Non-Steroidal Allergy NAUSEA Verified 09/24/17 19:12 Anti-Inflamma - Medications Medications: Current Medications Pantoprazole Sodium 40 mg/ (Sodium Chloride) 100 mls @ 20 mls/hr IVPB Q5H JANNIE PRN Reason: 8 MG/HR Physical Exam - Constitutional Appears: No Acute Distress - Head Exam Head Exam: ATRAUMATIC, NORMAL INSPECTION, NORMOCEPHALIC - Eye Exam Eye Exam: EOMI, Normal appearance Pupil Exam: NORMAL ACCOMODATION, PERRL - ENT Exam ENT Exam: Mucous Membranes Moist, Normal Exam, Normal External Ear Exam, Normal Oropharynx - Neck Exam Neck exam: Positive for: Full Rom. Negative for: Lymphadenopathy, Tenderness - Respiratory Exam Respiratory Exam: Clear to Auscultation Bilateral. absent: Rales, Rhonchi, Wheezes - Cardiovascular Exam Cardiovascular Exam: REGULAR RHYTHM, RRR, +S1, +S2. absent: Gallop - GI/Abdominal Exam Additional comments: Full, Soft, +ve bowel sounds. Tender at the Epigastrium and periumbilical region. No guarding, no rebound tenderness - Rectal Exam Rectal Exam: Deferred - Extremities Exam Extremities exam: Positive for: full ROM, pedal edema. Negative for: calf tenderness - Back Exam Back exam: NORMAL INSPECTION. absent: CVA tenderness (L), CVA tenderness (R) - Neurological Exam Neurological exam: Alert, CN II-XII Intact, Oriented x3, Reflexes Normal - Psychiatric Exam Psychiatric exam: Normal Affect, Normal Mood - Skin Skin Exam: Dry, Intact, Pallor, Warm Results - Vital Signs Recent Vital Signs: Last Vital Signs Temp 98.1 F 09/24/17 19:12 Pulse 123 H 09/24/17 19:12 Resp 20 09/24/17 19:12 BP 115/65 09/24/17 19:12 Pulse Ox 100 09/24/17 23:04 - Labs Result Diagrams: 09/24/17 22:24 09/24/17 22:24 Labs: Laboratory Results - last 24 hr 09/24/17 09/24/17 09/24/17 22:24 22:24 22:24 WBC 3.9 L RBC 1.89 L Hgb 6.0 L* Hct 18.3 L MCV 96.4 H D MCH 31.7 H MCHC 32.9 L RDW 18.6 H Plt Count 79 L D MPV 7.8 Neut % (Auto) 50.5 Lymph % (Auto) 26.5 [place] % (Auto) 14.5 H Eos % (Auto) 6.9 H Baso % (Auto) 1.6 Neut # (Auto) 2.0 Lymph # (Auto) 1.0 [place] # (Auto) 0.6 Eos # (Auto) 0.3 Baso # (Auto) 0.1 PT 19.8 H INR 1.8 H APTT 36.9 Sodium 141 Potassium 3.9 Chloride 110 H Carbon Dioxide 21 L Anion Gap 14 BUN 21 H Creatinine 0.6 L Est GFR ( Amer) > 60 Est GFR (Non-Af Amer) > 60 Random Glucose 103 Calcium 8.1 L Phosphorus 3.4 Magnesium 1.4 L Total Bilirubin 2.8 H AST 99 H ALT 59 Alkaline Phosphatase 160 H D Total Protein 5.9 L Albumin 2.3 L Globulin 3.6 Albumin/Globulin Ratio 0.6 L Lipase 154 Alcohol, Quantitative < 10 BBK History Checked 09/24/17 22:47 WBC RBC Hgb Hct MCV MCH MCHC RDW Plt Count MPV Neut % (Auto) Lymph % (Auto) [place] % (Auto) Eos % (Auto) Baso % (Auto) Neut # (Auto) Lymph # (Auto) [place] # (Auto) Eos # (Auto) Baso # (Auto) PT INR APTT Sodium Potassium Chloride Carbon Dioxide Anion Gap BUN Creatinine Est GFR ( Amer) Est GFR (Non-Af Amer) Random Glucose Calcium Phosphorus Magnesium Total Bilirubin AST ALT Alkaline Phosphatase Total Protein Albumin Globulin Albumin/Globulin Ratio Lipase Alcohol, Quantitative BBK History Checked Patient has bt - Imaging and Cardiology Chest x-ray Status: Image reviewed by me Additional comment: No infiltrate Assessment & Plan - Assessment and Plan (Free Text) Assessment: . GI bleed #. Blood loss Anemia #. Alcoholic Liver Cirrhosis #. Thrombocytopenia #. Seizure #. Azotemia #. alcohol Abuse Plan: 52 years old male with hx of seizure, chronic back pain and Alcohol Liver Cirrhosis with TIPs procedure and multiple admissions for upper GI bleed and multiple blood transfusions. He comes within the hour referring vomiting of blood X3 associated with lightheadedness and epigastric pain radiating to the periumbilical area and headache. #. GI bleed from the stomach or the Esophagus. Unlikely source would be varices as the patient had the TIPS procedure - Consult Dr Berry GI - NPO - Pantoprazole #. Blood loss Anemia - Transfuse two units of PRBC - follow HB #. Alcoholic Liver Cirrhosis s/p TIPS - GI on Consult #. Thrombocytopenia due to Alcohol abuse - Follow Platelets #. Coagulopathy with elevated INR - One unit of FFP #. Seizure - Keppra IV #. Azotemia - IV fluids - Follow Renal labs #. Alcohol Abuse - Banana bag to include Thiamine/ multi-Vitamin and Folic Acid - Alcohol withdrawal precaution with Ativan #. DVT prophylaxis with SCD #. Code Status: Full - Date & Time Date: 09/24/17 Time: 23:57
[2017-09-25 00:37] LABS: BARBITURATES, UR NEGATIVE (NEGATIVE); BENZODIAZEPINES, UR NEGATIVE (NEGATIVE); OPIATES, UR NEGATIVE (NEGATIVE); PHENCYCLIDINE, UR NEGATIVE (NEGATIVE)
--- NOTE | 2017-09-25 00:44 | CP.PCM.HP ---
<Haydee Fu - Last Filed: 09/25/17 04:47> History of Present Illness - History of Present Illness History of Present Illness: 52 y/o male with a PMHx remarkable for Seizures, ETOH Abuse, Hepatic encephalopathy, Pancytopenia, Alcohol Liver Cirrhosis with TIPs procedure presents to [facility] ED complaining of 3 dark red vomits three times yesterday ( Wednesday), associated with colic periumbilical abdominal pain, constant, intensity 8/10, with no aggravating or alleviating factors, no radiating. Patient reports he had around 8 episodes of dark soft stools yesterday. Denies fevers, chills, chest pain, SOB, palpitations, dizziness, urinary symptoms or blood in urine. Patient reports that he stopped drinking alcohol 1 year ago. PMD: [facility]. Last seen by PMD at [facility] PMHx: ETOH abuse (reports that the last alcohol use was 1 year ago, inconsistent story as per prior admissions), Epilepsy controlled via Keppra 500mg BID Meds: Keppra 500mg PO BID PsurgHx: TIPS in 2014 PHospHx: multiple ED visits for ETOH abuse, Hepatic Encelopathy SocialHx:2-3 cigarettes per day, h/o ETOH abuse/states he stopped drinking 1 year ago, and denies illicit drug use -lives in [place] with roommate FamilyHx: Father MA, mother breast cancer, siblings alive, sister recently diagnosed with colon cancer Next of kin: Sister Missy: [phone] Code Status: full code ER course: VS: In ER first set of vitals: BP: 115/58, HR:105, RR:16, oxygen sat 97 % in room air PE: pallor and jaundice to inspection resp: CTA B/L CV:RRR, normal S1, S2 abd: mild diffuse tenderness to palpation of periumbilical area, no rebound tenderness, no rigidity or guarding ext: pitting 2+ edema in lower extremities skin: pallor, jaundice, no petechiea noted labs: CBC: pancytopenia, H/H: 6.0/18.3, negative urine toxicology CXR: read by me, no evidence of acute disease, pending official report treatment: zofran 4 mg IV once, protonix 80 mg IV once, started on Protonix drip ICU unit Present on Admission - Present on Admission Any Indicators Present on Admission: No History of DVT/PE: No History of Uncontrolled Diabetes: No Urinary Catheter: No Decubitus Ulcer Present: No Review of Systems - Review of Systems All systems: reviewed and no additional remarkable complaints except (as per HPI ) Past Patient History - Infectious Disease Hx of Infectious Diseases: None - Tetanus Immunizations Tetanus Immunization: Unknown - Past Medical History & Family History Past Medical History?: Yes - Past Social History Smoking Status: Light Smoker < 10 Cigarettes Daily - CARDIAC Hx Cardiac Disorders: Yes - PULMONARY Hx Respiratory Disorders: No - NEUROLOGICAL Hx Seizures: Yes - HEENT Hx HEENT Problems: No - ENDOCRINE/METABOLIC Hx Endocrine Disorders: No - HEMATOLOGICAL/ONCOLOGICAL Hx Anemia: Yes - INTEGUMENTARY Hx Cellulitis: Yes - MUSCULOSKELETAL/RHEUMATOLOGICAL Hx Fractures: Yes (rib fx, left shoulder, Left hand 5th digit, Humerus fracture) - GASTROINTESTINAL Hx Gastritis: Yes Hx Pancreatitis: Yes - PSYCHIATRIC Hx Psychophysiologic Disorder: No - SURGICAL HISTORY Other/Comment: FINGER SX AND "STENT IN MY LIVER" - ANESTHESIA Hx Anesthesia: Yes Hx Anesthesia Reactions: No Hx Malignant Hyperthermia: No Meds Allergies/Adverse Reactions: Allergies Allergy/AdvReac Type Severity Reaction Status Date / Time aspirin Allergy NAUSEA Verified 09/24/17 19:12 ibuprofen [From Motrin] Allergy NAUSEA Verified 09/24/17 19:12 naproxen Allergy RASH Verified 09/24/17 19:12 NSAIDS (Non-Steroidal Allergy NAUSEA Verified 09/24/17 19:12 Anti-Inflamma Physical Exam - Constitutional Appears: Non-toxic, No Acute Distress - Eye Exam Eye Exam: Scleral icterus - ENT Exam ENT Exam: Mucous Membranes Moist - Respiratory Exam Respiratory Exam: Clear to Auscultation Bilateral, NORMAL BREATHING PATTERN. absent: Rales, Rhonchi, Wheezes, Stridor - Cardiovascular Exam Cardiovascular Exam: REGULAR RHYTHM, RRR, +S1, +S2 - GI/Abdominal Exam GI & Abdominal Exam: Distended (mild), Normal Bowel Sounds, Organomegaly, Soft, Tenderness (mild tenderness to palpation of periumbilical area). absent: Guarding, Rebound, Rigid - Extremities Exam Extremities exam: Negative for: calf tenderness Additional comments: pitting 2+ edema bilateral in lower extremities - Back Exam Back exam: NORMAL INSPECTION. absent: CVA tenderness (L), CVA tenderness (R) - Neurological Exam Neurological exam: Alert, Oriented x3 - Psychiatric Exam Psychiatric exam: Normal Affect, Normal Mood - Skin Skin Exam: Dry, Intact, Pallor Results - Vital Signs Recent Vital Signs: Last Vital Signs Temp 98.1 F 09/24/17 23:58 Pulse 123 H 09/24/17 23:58 Resp 20 09/24/17 23:58 BP 115/65 09/24/17 23:58 Pulse Ox 100 09/24/17 23:04 - Labs Result Diagrams: 09/24/17 22:24 09/24/17 22:24 Labs: Laboratory Results - last 24 hr 09/24/17 09/24/17 09/24/17 22:24 22:24 22:24 WBC 3.9 L RBC 1.89 L Hgb 6.0 L* Hct 18.3 L MCV 96.4 H D MCH 31.7 H MCHC 32.9 L RDW 18.6 H Plt Count 79 L D MPV 7.8 Neut % (Auto) 50.5 Lymph % (Auto) 26.5 Ward % (Auto) 14.5 H Eos % (Auto) 6.9 H Baso % (Auto) 1.6 Neut # (Auto) 2.0 Lymph # (Auto) 1.0 Ward # (Auto) 0.6 Eos # (Auto) 0.3 Baso # (Auto) 0.1 PT 19.8 H INR 1.8 H APTT 36.9 Sodium 141 Potassium 3.9 Chloride 110 H Carbon Dioxide 21 L Anion Gap 14 BUN 21 H Creatinine 0.6 L Est GFR ( Amer) > 60 Est GFR (Non-Af Amer) > 60 Random Glucose 103 Calcium 8.1 L Phosphorus 3.4 Magnesium 1.4 L Total Bilirubin 2.8 H AST 99 H ALT 59 Alkaline Phosphatase 160 H D Total Protein 5.9 L Albumin 2.3 L Globulin 3.6 Albumin/Globulin Ratio 0.6 L Lipase 154 Urine Opiates Screen Urine Methadone Screen Ur Barbiturates Screen Ur Phencyclidine Scrn Ur Amphetamines Screen U Benzodiazepines Scrn U Oth Cocaine Metabols U Cannabinoids Screen Alcohol, Quantitative < 10 Crossmatch BBK History Checked 09/24/17 09/25/17 22:47 00:07 WBC RBC Hgb Hct MCV MCH MCHC RDW Plt Count MPV Neut % (Auto) Lymph % (Auto) Ward % (Auto) Eos % (Auto) Baso % (Auto) Neut # (Auto) Lymph # (Auto) Ward # (Auto) Eos # (Auto) Baso # (Auto) PT INR APTT Sodium Potassium Chloride Carbon Dioxide Anion Gap BUN Creatinine Est GFR ( Amer) Est GFR (Non-Af Amer) Random Glucose Calcium Phosphorus Magnesium Total Bilirubin AST ALT Alkaline Phosphatase Total Protein Albumin Globulin Albumin/Globulin Ratio Lipase Urine Opiates Screen Negative Urine Methadone Screen Negative Ur Barbiturates Screen Negative Ur Phencyclidine Scrn Negative Ur Amphetamines Screen Negative U Benzodiazepines Scrn Negative U Oth Cocaine Metabols Negative U Cannabinoids Screen Negative Alcohol, Quantitative Crossmatch See Detail BBK History Checked Patient has bt Assessment & Plan - Assessment and Plan (Free Text) Assessment: 52 y/o male with a PMHx remarkable for Seizures, Hepatic encephalopathy, Pancytopenia, Alcohol Liver Cirrhosis admitted with GI bleeding and acute on chronic anemia. Plan: GI Bleeding -ICU unit -most likely upper GI bleeding -NPO -c/w PPI drip -IV fluids while NPO -GI consult. Recommendations are appreciated. -last EGD done on 05/04/17 because GI bleeding episode was reported as LA Grade C esophagitis. POrtal hypertensive gastropathy. No peptic ulcer reported. -Colonoscopy done on 07/20/17 with reported inadequate colon preparation, and non -bleeding internal hemorrhoids. Anemia -Acute on Chronic Anemia -secondary to GI bleeding -2 units of PRBC transfusion ordered in ER -check CBC after transfusion Alcoholic Liver Cirrhosis -GI consult. Recommendations are appreciated. -last EGD done on 05/04/17 because GI bleeding episode was reported as LA Grade C esophagitis. POrtal hypertensive gastropathy. No peptic ulcer reported. Thrombocytopenia -most likely 2/2 splenomegaly 2/2 liver cirrhosis -plt count 79 on admission -f/u CBC Seizure -c/w Home keppra 500 mg BID-will give IV while NPO for GI bleeding Edema in lower extremities -most likely 2/2 Liver Cirrhosis with portal hypertension Abnormal INR -most likely coagulopathy 2/2 liver cirrhosis -INR:1.8 -1 unit of FFP as per hospitalist H/O alcohol abuse -CIWA score 0 -alcohol withdrawal protocol DVT prophylaxis SCDs GI bleeding and thrombocytopenia - Date & Time Date: 09/25/17 Time: 00:50 <Jennifer Ray - Last Filed: 09/25/17 09:58> Results - Vital Signs Recent Vital Signs: Last Vital Signs Temp 98.2 F 09/25/17 08:00 Pulse 77 09/25/17 08:00 Resp 12 09/25/17 08:00 BP 111/59 L 09/25/17 06:00 Pulse Ox 93 L 09/25/17 08:00 - Labs Result Diagrams: 09/24/17 22:24 09/24/17 22:24 Labs: Laboratory Results - last 24 hr 09/24/17 09/24/17 09/24/17 22:24 22:24 22:24 WBC 3.9 L RBC 1.89 L Hgb 6.0 L* Hct 18.3 L MCV 96.4 H D MCH 31.7 H MCHC 32.9 L RDW 18.6 H Plt Count 79 L D MPV 7.8 Neut % (Auto) 50.5 Lymph % (Auto) 26.5 Ward % (Auto) 14.5 H Eos % (Auto) 6.9 H Baso % (Auto) 1.6 Neut # (Auto) 2.0 Lymph # (Auto) 1.0 Ward # (Auto) 0.6 Eos # (Auto) 0.3 Baso # (Auto) 0.1 PT 19.8 H INR 1.8 H APTT 36.9 Sodium 141 Potassium 3.9 Chloride 110 H Carbon Dioxide 21 L Anion Gap 14 BUN 21 H Creatinine 0.6 L Est GFR ( Amer) > 60 Est GFR (Non-Af Amer) > 60 Random Glucose 103 Calcium 8.1 L Phosphorus 3.4 Magnesium 1.4 L Total Bilirubin 2.8 H AST 99 H ALT 59 Alkaline Phosphatase 160 H D Total Protein 5.9 L Albumin 2.3 L Globulin 3.6 Albumin/Globulin Ratio 0.6 L Lipase 154 Urine Opiates Screen Urine Methadone Screen Ur Barbiturates Screen Ur Phencyclidine Scrn Ur Amphetamines Screen U Benzodiazepines Scrn U Oth Cocaine Metabols U Cannabinoids Screen Alcohol, Quantitative < 10 Blood Type Antibody Screen Crossmatch BBK History Checked 09/24/17 09/25/17 22:47 00:07 WBC RBC Hgb Hct MCV MCH MCHC RDW Plt Count MPV Neut % (Auto) Lymph % (Auto) Ward % (Auto) Eos % (Auto) Baso % (Auto) Neut # (Auto) Lymph # (Auto) Ward # (Auto) Eos # (Auto) Baso # (Auto) PT INR APTT Sodium Potassium Chloride Carbon Dioxide Anion Gap BUN Creatinine Est GFR ( Amer) Est GFR (Non-Af Amer) Random Glucose Calcium Phosphorus Magnesium Total Bilirubin AST ALT Alkaline Phosphatase Total Protein Albumin Globulin Albumin/Globulin Ratio Lipase Urine Opiates Screen Negative Urine Methadone Screen Negative Ur Barbiturates Screen Negative Ur Phencyclidine Scrn Negative Ur Amphetamines Screen Negative U Benzodiazepines Scrn Negative U Oth Cocaine Metabols Negative U Cannabinoids Screen Negative Alcohol, Quantitative Blood Type O POSITIVE Antibody Screen Negative Crossmatch See Detail BBK History Checked Patient has bt Attending/Attestation - Attestation Notes (Text): 09/25/17 09:58 ATTENDING NOTE. CHART REVIEWED. AGREE WITH FINDINGS AND PLAN.
[2017-09-25] MEDS ORDERED: Sodium Chloride 0.9% 1,000 ML IV SCH (01:00)
[2017-09-25] MEDS ORDERED: Multivitamin (MVI) 10 ML, Thiamine 100 MG, Folic Acid 1 MG in Sodium Chloride 0.9% 1,00... IV ONE (02:08)
[2017-09-25] MEDS ORDERED: Magnesium Sulfate 1 gm in D5W 1 GM/100 ML BAG IVPB ONE (02:14)
[2017-09-25] MEDS: Pantoprazole 40 MG in Sodium Chloride 0.9% 100 ML IVPB SCH ×2 (02:16→10:32)
--- NOTE | 2017-09-25 08:01 | CP.PCM.CON ---
<Abelino Sherman - Last Filed: 09/25/17 09:24> History of Present Illness - History of Present Illness History of Present Illness: PGY5 GI Fellow Consult Note Patient is a 52yo male with PMHx significant for decompensated EtOH cirrhosis s/ p TIPS (2014), severe esophagitis, upper GI bleeding with visible vessel at EGJ , epilepsy who presented to the ED with complaint of hematemesis and dark stool. The patient has essentially presented to the ED daily for the last week with various complaints, particularly pertaining to seizure activity and headaches. Earlier in the week, EtOH level was significant elevated though patient denies any intake in over a year. He stated that he became nauseated earlier yesterday and vomiting 3 times, seeing specs of bright red blood. He also admits to 10+ episodes of dark stool prior to admission. This morning, he complains of epigastric burning pain and rectal pain. Denies any nausea, vomiting or diarrhea since admission. He is hungry and asking when he can be discharged. In the ED, routine labs revealed anemia with HGB 6, a 2g drop in 4 days. Patient has since been transfused two units of PRBCs and started on PPI gtt. he was started on protonix gtt an PMHx: See HPI PSHx: TIPS in 2014 FHx: Father - [place]; Mother - breast cancer; Sister - colon cancer @ 58yo Social: Denies EtOH use for >1 year but EtOH level +3 times in less than the past month; denies tobacco or illicit drug use Endo: Colonoscopy - 06/2017 - Poor prep, internal/external hemorrhoids EGD - 04/2017 - LA Grade C esophagitis with visible vessel at EGJ s/p clip and injection of epi, portal hypertensive gastropathy 12 system ROS performed and negative except where stated Past Patient History - Infectious Disease Hx of Infectious Diseases: None - Tetanus Immunizations Tetanus Immunization: Unknown - Past Medical History & Family History Past Medical History?: Yes - Past Social History Smoking Status: Light Smoker < 10 Cigarettes Daily - CARDIAC Hx Cardiac Disorders: Yes - PULMONARY Hx Respiratory Disorders: No - NEUROLOGICAL Hx Seizures: Yes - HEENT Hx HEENT Problems: No - RENAL Hx Chronic Kidney Disease: No - ENDOCRINE/METABOLIC Hx Endocrine Disorders: No - HEMATOLOGICAL/ONCOLOGICAL Hx Anemia: Yes - INTEGUMENTARY Hx Cellulitis: Yes - MUSCULOSKELETAL/RHEUMATOLOGICAL Hx Fractures: Yes (rib fx, left shoulder, Left hand 5th digit, Humerus fracture) - GASTROINTESTINAL Hx Gastritis: Yes Hx Pancreatitis: Yes - PSYCHIATRIC Hx Psychophysiologic Disorder: No - SURGICAL HISTORY Other/Comment: FINGER SX AND "STENT IN MY LIVER" - ANESTHESIA Hx Anesthesia: Yes Hx Anesthesia Reactions: No Hx Malignant Hyperthermia: No Meds Allergies/Adverse Reactions: Allergies Allergy/AdvReac Type Severity Reaction Status Date / Time aspirin Allergy NAUSEA Verified 09/24/17 19:12 ibuprofen [From Motrin] Allergy NAUSEA Verified 09/24/17 19:12 naproxen Allergy RASH Verified 09/24/17 19:12 NSAIDS (Non-Steroidal Allergy NAUSEA Verified 09/24/17 19:12 Anti-Inflamma - Medications Medications: Current Medications Pantoprazole Sodium 40 mg/ (Sodium Chloride) 100 mls @ 20 mls/hr IVPB Q5H JANNIE PRN Reason: 8 MG/HR Last Admin: 09/25/17 02:16 Dose: 20 mls/hr Levetiracetam 500 mg/ Sodium (Chloride) 105 mls @ 210 mls/hr IVPB Q12 [facility] Multivitamins/Vitamin C 10 ml/Thiamine HCl 100 mg/ Folic Acid 1 mg/ Sodium Chloride 1,011.2 mls @ 100 mls/hr IV .Q10H7M ONE Stop: 09/25/17 12:14 Lorazepam (Ativan) 1 mg IVP Q4H PRN PRN Reason: Symptoms of alcohol withdrawl Ondansetron HCl (Zofran Inj) 4 mg IVP Q6 PRN PRN Reason: Nausea/Vomiting Physical Exam - Constitutional Appears: Non-toxic, No Acute Distress - Eye Exam Eye Exam: EOMI, PERRL - ENT Exam ENT Exam: Mucous Membranes Moist - Respiratory Exam Respiratory Exam: Clear to Auscultation Bilateral. absent: Rales, Rhonchi, Wheezes - Cardiovascular Exam Cardiovascular Exam: RRR, +S1, +S2 - GI/Abdominal Exam GI & Abdominal Exam: Normal Bowel Sounds, Soft, Tenderness (epigastric). absent : Distended, Firm, Guarding, Organomegaly, Rigid - Rectal Exam Rectal Exam: Hemorrhoids (external and internal). absent: Black Stool, Bloody Stool Additional comments: formed brown stool - Extremities Exam Extremities exam: Positive for: normal inspection. Negative for: pedal edema - Neurological Exam Neurological exam: Alert, Oriented x3 - Psychiatric Exam Psychiatric exam: Normal Affect, Normal Mood - Skin Skin Exam: Dry, Warm Results - Vital Signs Recent Vital Signs: Last Vital Signs Temp 98.5 F 09/25/17 04:00 Pulse 82 09/25/17 06:00 Resp 11 L 09/25/17 06:00 BP 111/59 L 09/25/17 06:00 Pulse Ox 100 09/25/17 06:00 - Labs Result Diagrams: 09/24/17 22:24 09/24/17 22:24 Labs: Laboratory Results - last 24 hr 09/24/17 09/24/17 09/24/17 22:24 22:24 22:24 WBC 3.9 L RBC 1.89 L Hgb 6.0 L* Hct 18.3 L MCV 96.4 H D MCH 31.7 H MCHC 32.9 L RDW 18.6 H Plt Count 79 L D MPV 7.8 Neut % (Auto) 50.5 Lymph % (Auto) 26.5 Leake % (Auto) 14.5 H Eos % (Auto) 6.9 H Baso % (Auto) 1.6 Neut # (Auto) 2.0 Lymph # (Auto) 1.0 Leake # (Auto) 0.6 Eos # (Auto) 0.3 Baso # (Auto) 0.1 PT 19.8 H INR 1.8 H APTT 36.9 Sodium 141 Potassium 3.9 Chloride 110 H Carbon Dioxide 21 L Anion Gap 14 BUN 21 H Creatinine 0.6 L Est GFR ( Amer) > 60 Est GFR (Non-Af Amer) > 60 Random Glucose 103 Calcium 8.1 L Phosphorus 3.4 Magnesium 1.4 L Total Bilirubin 2.8 H AST 99 H ALT 59 Alkaline Phosphatase 160 H D Total Protein 5.9 L Albumin 2.3 L Globulin 3.6 Albumin/Globulin Ratio 0.6 L Lipase 154 Urine Opiates Screen Urine Methadone Screen Ur Barbiturates Screen Ur Phencyclidine Scrn Ur Amphetamines Screen U Benzodiazepines Scrn U Oth Cocaine Metabols U Cannabinoids Screen Alcohol, Quantitative < 10 Blood Type Antibody Screen Crossmatch BBK History Checked 09/24/17 09/25/17 22:47 00:07 WBC RBC Hgb Hct MCV MCH MCHC RDW Plt Count MPV Neut % (Auto) Lymph % (Auto) Leake % (Auto) Eos % (Auto) Baso % (Auto) Neut # (Auto) Lymph # (Auto) Leake # (Auto) Eos # (Auto) Baso # (Auto) PT INR APTT Sodium Potassium Chloride Carbon Dioxide Anion Gap BUN Creatinine Est GFR ( Amer) Est GFR (Non-Af Amer) Random Glucose Calcium Phosphorus Magnesium Total Bilirubin AST ALT Alkaline Phosphatase Total Protein Albumin Globulin Albumin/Globulin Ratio Lipase Urine Opiates Screen Negative Urine Methadone Screen Negative Ur Barbiturates Screen Negative Ur Phencyclidine Scrn Negative Ur Amphetamines Screen Negative U Benzodiazepines Scrn Negative U Oth Cocaine Metabols Negative U Cannabinoids Screen Negative Alcohol, Quantitative Blood Type O POSITIVE Antibody Screen Negative Crossmatch See Detail BBK History Checked Patient has bt Assessment & Plan - Assessment and Plan (Free Text) Assessment: Patient is a 52yo male with PMHx significant for decompensated EtOH cirrhosis s/ p TIPS (2014), severe esophagitis, upper GI bleeding with visible vessel at EGJ , epilepsy who presented to the ED with complaint of hematemesis and dark stool -Anemia -Decompensated EtOH cirrhosis -Epilepsy with possible recent EtOH withdrawal seizures -S/P TIPS -LA Grade C esophagitis -Large external/internal hemorrhoids -EtOH abuse Plan: -Rectal exam with formed brown stool; no hematemesis/melena since admission -S/P 2 units PRBCs; repeat CBC and monitor -Remains hemodynamically stable; asymptomatic -OK to D/C PPI gtt and change to 40mg PO BIDAC -LFTs likely a result of recent EtOH use -Advance diet as tolerated -Annusol-HC suppository and cream to be applied NM and externally to treat int/ ext hemorrhoids -Encourage EtOH cessation -Will benefit from repeat EGD/Colonoscopy outpatient, recommend follow up - Date & Time Date: 09/25/17 Time: 06:10 <Gurpreet Germain - Last Filed: 09/25/17 09:41> Meds - Medications Medications: Current Medications Hydrocortisone (Anusol-Hc) 25 mg NM BID JANNIE Stop: 10/08/17 17:01 Hydrocortisone (Anusol-Hc) 1 applic NM BID JANNIE Stop: 10/08/17 17:01 Levetiracetam 500 mg/ Sodium (Chloride) 105 mls @ 210 mls/hr IVPB Q12 JANNIE Multivitamins/Vitamin C 10 ml/Thiamine HCl 100 mg/ Folic Acid 1 mg/ Sodium Chloride 1,011.2 mls @ 100 mls/hr IV .Q10H7M ONE Stop: 09/25/17 12:14 Lorazepam (Ativan) 1 mg IVP Q4H PRN PRN Reason: Symptoms of alcohol withdrawl Ondansetron HCl (Zofran Inj) 4 mg IVP Q6 PRN PRN Reason: Nausea/Vomiting Pantoprazole Sodium (Protonix Ec Tab) 40 mg PO BID JANNIE Results - Vital Signs Recent Vital Signs: Last Vital Signs Temp 98.2 F 09/25/17 08:00 Pulse 77 09/25/17 08:00 Resp 12 09/25/17 08:00 BP 111/59 L 09/25/17 06:00 Pulse Ox 93 L 09/25/17 08:00 - Labs Result Diagrams: 09/24/17 22:24 09/24/17 22:24 Labs: Laboratory Results - last 24 hr 09/24/17 09/24/17 09/24/17 22:24 22:24 22:24 WBC 3.9 L RBC 1.89 L Hgb 6.0 L* Hct 18.3 L MCV 96.4 H D MCH 31.7 H MCHC 32.9 L RDW 18.6 H Plt Count 79 L D MPV 7.8 Neut % (Auto) 50.5 Lymph % (Auto) 26.5 Leake % (Auto) 14.5 H Eos % (Auto) 6.9 H Baso % (Auto) 1.6 Neut # (Auto) 2.0 Lymph # (Auto) 1.0 Leake # (Auto) 0.6 Eos # (Auto) 0.3 Baso # (Auto) 0.1 PT 19.8 H INR 1.8 H APTT 36.9 Sodium 141 Potassium 3.9 Chloride 110 H Carbon Dioxide 21 L Anion Gap 14 BUN 21 H Creatinine 0.6 L Est GFR ( Amer) > 60 Est GFR (Non-Af Amer) > 60 Random Glucose 103 Calcium 8.1 L Phosphorus 3.4 Magnesium 1.4 L Total Bilirubin 2.8 H AST 99 H ALT 59 Alkaline Phosphatase 160 H D Total Protein 5.9 L Albumin 2.3 L Globulin 3.6 Albumin/Globulin Ratio 0.6 L Lipase 154 Urine Opiates Screen Urine Methadone Screen Ur Barbiturates Screen Ur Phencyclidine Scrn Ur Amphetamines Screen U Benzodiazepines Scrn U Oth Cocaine Metabols U Cannabinoids Screen Alcohol, Quantitative < 10 Blood Type Antibody Screen Crossmatch BBK History Checked 09/24/17 09/25/17 22:47 00:07 WBC RBC Hgb Hct MCV MCH MCHC RDW Plt Count MPV Neut % (Auto) Lymph % (Auto) Leake % (Auto) Eos % (Auto) Baso % (Auto) Neut # (Auto) Lymph # (Auto) Leake # (Auto) Eos # (Auto) Baso # (Auto) PT INR APTT Sodium Potassium Chloride Carbon Dioxide Anion Gap BUN Creatinine Est GFR ( Amer) Est GFR (Non-Af Amer) Random Glucose Calcium Phosphorus Magnesium Total Bilirubin AST ALT Alkaline Phosphatase Total Protein Albumin Globulin Albumin/Globulin Ratio Lipase Urine Opiates Screen Negative Urine Methadone Screen Negative Ur Barbiturates Screen Negative Ur Phencyclidine Scrn Negative Ur Amphetamines Screen Negative U Benzodiazepines Scrn Negative U Oth Cocaine Metabols Negative U Cannabinoids Screen Negative Alcohol, Quantitative Blood Type O POSITIVE Antibody Screen Negative Crossmatch See Detail BBK History Checked Patient has bt Attending/Attestation - Attestation I have personally seen and examined this patient.: Yes I have fully participated in the care of the patient.: Yes I have reviewed all pertinent clinical information: Yes Notes (Text): 09/25/17 09:35 I have seen and examined patient with GI fellow. Agree with above documentation with the following additions. In brief, this is a 52 year old male with history of ETOH decompensated cirrhosis s/p TIPS, continuing ETOH abuse, epilepsy who presents to hospital with complaint of vomiting and dark stool. He describes last drinking ETOH 4 days ago and since then experiencing nausea with 3 episodes of vomiting progressively leading to blood tinged emesis. He also reports dark colored bowel movements during this time period. He also endorses epigastric abdominal pain, no recurrent vomiting since arrival to hospital. He had an EGD in April 2017 which showed esophagitis and esophageal ulceration with vessel s/p therapy, colonoscopy in June 2017 which showed poor bowel preparation. Decompensated ETOH cirrhosis s/p TIPS Epilepsy Vomiting Anemia - Advance diet to low sodium as tolerated - s/p 2 units PRBC transfusion, continue to monitor H/H - rectal examination performed today shows internal/external hemorrhoid, firm brown stool in rectal vault - Suggest oral PPI therapy twice daily - Monitor for signs of ETOH withdrawal - Anusol suppository for hemorrhoid relief - If tolerating PO diet, can likely be discharged from GI standpoint. Patient requires ETOH cessation counseling, overall fdc prognosis for patient is poor given decompensated liver disease with ongoing ETOH abuse.
[2017-09-25] MEDS ORDERED: Anusol Suppository PR SCH (09:00)
[2017-09-25] MEDS: levETIRAcetam 500 MG in Sodium Chloride 0.9% 100 ML IVPB SCH ×2 (10:29→21:00)
--- NOTE | 2017-09-25 10:35 | RAD ---
HISTORY: gi bleed COMPARISON: Comparison chest dated 08/30/2017 FINDINGS: LUNGS: Poor inspiration with low lung volumes, crowded bronchovascular markings and mild bibasilar atelectasis. PLEURA: No significant pleural effusion identified, no pneumothorax apparent. CARDIOVASCULAR: Normal. OSSEOUS STRUCTURES: No significant abnormalities. VISUALIZED UPPER ABDOMEN: Normal. OTHER FINDINGS: None. IMPRESSION: Poor inspiration with low lung volumes, crowded bronchovascular markings and mild bibasilar atelectasis.
--- NOTE | 2017-09-25 10:59 | CP.PCM.CON ---
History of Present Illness - History of Present Illness History of Present Illness: Patient is a 52yo male with PMHx significant for decompensated EtOH cirrhosis s/ p TIPS (2014), severe esophagitis, upper GI bleeding , epilepsy who presented to the ED with complaint of hematemesis and dark stool. Ashley was in ER last with seizure and had high ETOH level. Also c/o nausea earlier yesterday and vomiting 3 times, seeing specs of bright red blood. He also admits to 10+ episodes of dark stool prior to admission. This morning, he complains of epigastric burning pain and rectal pain. Today denies any nausea, vomiting or diarrhea since admission. He is hungry and asking for sandwich now in ICU. In ED , routine labs revealed anemia with HGB 6, a 2g drop in 4 days. Patient has since been transfused two units of PRBCs , one unit of FFP, has been on PPI gtt. GI saw the patient his AM. Review of Systems - Constitutional Constitutional: As Per HPI, Headache - EENT Eyes: As Per HPI Nose/Mouth/Throat: As Per HPI - Cardiovascular Cardiovascular: Other - Respiratory Respiratory: As Per HPI - Gastrointestinal Gastrointestinal: Heartburn - Genitourinary Genitourinary: As Per HPI Past Patient History - Infectious Disease Hx of Infectious Diseases: None - Tetanus Immunizations Tetanus Immunization: Unknown - Past Medical History & Family History Past Medical History?: Yes - Past Social History Smoking Status: Light Smoker < 10 Cigarettes Daily - CARDIAC Hx Cardiac Disorders: Yes - PULMONARY Hx Respiratory Disorders: No - NEUROLOGICAL Hx Seizures: Yes - HEENT Hx HEENT Problems: No - RENAL Hx Chronic Kidney Disease: No - ENDOCRINE/METABOLIC Hx Endocrine Disorders: No - HEMATOLOGICAL/ONCOLOGICAL Hx Anemia: Yes - INTEGUMENTARY Hx Cellulitis: Yes - MUSCULOSKELETAL/RHEUMATOLOGICAL Hx Fractures: Yes (rib fx, left shoulder, Left hand 5th digit, Humerus fracture) - GASTROINTESTINAL Hx Gastritis: Yes Hx Pancreatitis: Yes - PSYCHIATRIC Hx Psychophysiologic Disorder: No - SURGICAL HISTORY Other/Comment: FINGER SX AND "STENT IN MY LIVER" - ANESTHESIA Hx Anesthesia: Yes Hx Anesthesia Reactions: No Hx Malignant Hyperthermia: No Meds Allergies/Adverse Reactions: Allergies Allergy/AdvReac Type Severity Reaction Status Date / Time aspirin Allergy NAUSEA Verified 09/24/17 19:12 ibuprofen [From Motrin] Allergy NAUSEA Verified 09/24/17 19:12 naproxen Allergy RASH Verified 09/24/17 19:12 NSAIDS (Non-Steroidal Allergy NAUSEA Verified 09/24/17 19:12 Anti-Inflamma - Medications Medications: Current Medications Hydrocortisone (Anusol-Hc) 25 mg MO BID JANNIE Stop: 10/08/17 17:01 Hydrocortisone (Anusol-Hc) 1 applic MO BID JANNIE Stop: 10/08/17 17:01 Levetiracetam 500 mg/ Sodium (Chloride) 105 mls @ 210 mls/hr IVPB Q12 JANNIE Last Admin: 09/25/17 10:29 Dose: 210 mls/hr Multivitamins/Vitamin C 10 ml/Thiamine HCl 100 mg/ Folic Acid 1 mg/ Sodium Chloride 1,011.2 mls @ 100 mls/hr IV .Q10H7M ONE Stop: 09/25/17 12:14 Last Admin: 09/25/17 08:00 Dose: 100 mls/hr Lorazepam (Ativan) 1 mg IVP Q4H PRN PRN Reason: Symptoms of alcohol withdrawl Ondansetron HCl (Zofran Inj) 4 mg IVP Q6 PRN PRN Reason: Nausea/Vomiting Pantoprazole Sodium (Protonix Ec Tab) 40 mg PO BID [facility] Physical Exam - Head Exam Head Exam: ATRAUMATIC - Eye Exam Eye Exam: Conjunctival injection Pupil Exam: NORMAL ACCOMODATION - ENT Exam ENT Exam: Mucous Membranes Moist - Neck Exam Neck exam: Positive for: Full Rom - Respiratory Exam Respiratory Exam: NORMAL BREATHING PATTERN - Cardiovascular Exam Cardiovascular Exam: REGULAR RHYTHM - GI/Abdominal Exam GI & Abdominal Exam: Soft, Tenderness - Rectal Exam Rectal Exam: Deferred Results - Vital Signs Recent Vital Signs: Last Vital Signs Temp 98.2 F 09/25/17 08:00 Pulse 72 09/25/17 10:00 Resp 10 L 09/25/17 10:00 BP 112/63 09/25/17 10:00 Pulse Ox 94 L 09/25/17 10:00 - Labs Result Diagrams: 09/24/17 22:24 09/24/17 22:24 Labs: Laboratory Results - last 24 hr 09/24/17 09/24/17 09/24/17 22:24 22:24 22:24 WBC 3.9 L RBC 1.89 L Hgb 6.0 L* Hct 18.3 L MCV 96.4 H D MCH 31.7 H MCHC 32.9 L RDW 18.6 H Plt Count 79 L D MPV 7.8 Neut % (Auto) 50.5 Lymph % (Auto) 26.5 [place] % (Auto) 14.5 H Eos % (Auto) 6.9 H Baso % (Auto) 1.6 Neut # (Auto) 2.0 Lymph # (Auto) 1.0 [place] # (Auto) 0.6 Eos # (Auto) 0.3 Baso # (Auto) 0.1 PT 19.8 H INR 1.8 H APTT 36.9 Sodium 141 Potassium 3.9 Chloride 110 H Carbon Dioxide 21 L Anion Gap 14 BUN 21 H Creatinine 0.6 L Est GFR ( Amer) > 60 Est GFR (Non-Af Amer) > 60 Random Glucose 103 Calcium 8.1 L Phosphorus 3.4 Magnesium 1.4 L Total Bilirubin 2.8 H AST 99 H ALT 59 Alkaline Phosphatase 160 H D Total Protein 5.9 L Albumin 2.3 L Globulin 3.6 Albumin/Globulin Ratio 0.6 L Lipase 154 Urine Opiates Screen Urine Methadone Screen Ur Barbiturates Screen Ur Phencyclidine Scrn Ur Amphetamines Screen U Benzodiazepines Scrn U Oth Cocaine Metabols U Cannabinoids Screen Alcohol, Quantitative < 10 Blood Type Antibody Screen Crossmatch BBK History Checked 09/24/17 09/25/17 22:47 00:07 WBC RBC Hgb Hct MCV MCH MCHC RDW Plt Count MPV Neut % (Auto) Lymph % (Auto) [place] % (Auto) Eos % (Auto) Baso % (Auto) Neut # (Auto) Lymph # (Auto) [place] # (Auto) Eos # (Auto) Baso # (Auto) PT INR APTT Sodium Potassium Chloride Carbon Dioxide Anion Gap BUN Creatinine Est GFR ( Amer) Est GFR (Non-Af Amer) Random Glucose Calcium Phosphorus Magnesium Total Bilirubin AST ALT Alkaline Phosphatase Total Protein Albumin Globulin Albumin/Globulin Ratio Lipase Urine Opiates Screen Negative Urine Methadone Screen Negative Ur Barbiturates Screen Negative Ur Phencyclidine Scrn Negative Ur Amphetamines Screen Negative U Benzodiazepines Scrn Negative U Oth Cocaine Metabols Negative U Cannabinoids Screen Negative Alcohol, Quantitative Blood Type O POSITIVE Antibody Screen Negative Crossmatch See Detail BBK History Checked Patient has bt Assessment & Plan - Assessment and Plan (Free Text) Assessment: ASSESSMENT Decompensated ETOH cirrhosis s/p TIPS Upper GI Severe Anemia Epilepsy Vomiting Hypomagnesemia PLAN GI recommendation appreciated -Will diet to low sodium as tolerated - s/p 2 units PRBC transfusion,one unit of FFP, will check Hb now and will continue to monitor H/H - - Will switch oral PPI therapy twice daily, as recommended by GI - Monitor for signs of ETOH withdrawal - Anusol suppository for hemorrhoid relief - As per GI, If tolerating PO diet, can likely be discharged from GI standpoint. Patient requires ETOH cessation counseling, overall [facility] prognosis for patient is poor given decompensated liver disease with ongoing ETOH abuse.
[2017-09-25 11:21] LABS: BASO % 0.9 % (0.0-2.0); EOS # 0.4 K/uL (0.0-0.7); EOS % 11.7 % (0.0-4.0); HEMOGLOBIN 8.2 g/dL (12.0-18.0); LYMPH # 0.8 K/uL (1.0-4.3); LYMPH % 21.5 % (20.0-40.0); MEAN CORPUSCULAR HEMOGLOBIN 31.3 pg (27.0-31.0); MEAN CORPUSCULAR HGB CONC 32.9 g/dL (33.0-37.0); MONO # 0.4 K/uL (0.0-0.8); MONO % 11.3 % (0.0-10.0); NEUT # 2.1 K/uL (1.8-7.0); NEUT % 54.6 % (50.0-75.0); NRBC % 0.2 % (0.0-0.0); RBC 2.61 Mil/uL (4.40-5.90); RED CELL DISTRIBUTION WIDTH 18.5 % (11.5-14.5); WHITE BLOOD COUNT 3.8 K/uL (4.8-10.8)
[2017-09-25 11:42] LABS: BLOOD UREA NITROGEN 15 mg/dl (9-20); CALCIUM 7.9 mg/dL (8.4-10.2); GFR AFRICAN-AMERICAN > 60; GFR NON-AFRICAN AMERICAN > 60
[2017-09-25] MEDS ORDERED: Chlorhexidine Gluconate 1 APPL/PKT TP ONE (12:25)
[2017-09-25] MEDS: Hydrocortisone 2.5% (Rectal) CREAM PR SCH ×2 (12:25→18:18)
[2017-09-25 16:47] LABS: BASO % 1.1 % (0.0-2.0); EOS # 0.4 K/uL (0.0-0.7); EOS % 9.1 % (0.0-4.0); HEMOGLOBIN 8.1 g/dL (12.0-18.0); LYMPH % 24.2 % (20.0-40.0); MEAN CELL VOLUME 95.2 fl (80.0-94.0); MEAN CORPUSCULAR HEMOGLOBIN 31.1 pg (27.0-31.0); MEAN CORPUSCULAR HGB CONC 32.7 g/dL (33.0-37.0); MEAN PLATELET VOLUME 7.9 fl (7.2-11.7); MONO # 0.6 K/uL (0.0-0.8); MONO % 14.1 % (0.0-10.0); NEUT # 2.1 K/uL (1.8-7.0); NEUT % 51.5 % (50.0-75.0); NRBC % 0.1 % (0.0-0.0); RBC 2.61 Mil/uL (4.40-5.90); WHITE BLOOD COUNT 4.1 K/uL (4.8-10.8)
[2017-09-25] MEDS: Pantoprazole 40 mg EC Tab PO SCH (16:49)
[2017-09-26 06:20] LABS: ALB/GLOB RATIO 0.7 (1.0-2.1); ALBUMIN 2.3 g/dL (3.5-5.0); ALT/SGPT 51 U/L (21-72); AST/SGOT 83 U/L (17-59); BILIRUBIN,DIRECT 1.1 mg/ml (0.0-0.4); BLOOD UREA NITROGEN 12 mg/dl (9-20); CALCIUM 7.7 mg/dL (8.4-10.2); GFR AFRICAN-AMERICAN > 60; GFR NON-AFRICAN AMERICAN > 60
[2017-09-26 06:33] LABS: HEMOGLOBIN 7.7 g/dL (12.0-18.0); MEAN CELL VOLUME 96.2 fl (80.0-94.0); MEAN CORPUSCULAR HEMOGLOBIN 31.7 pg (27.0-31.0); RBC 2.42 Mil/uL (4.40-5.90); RED CELL DISTRIBUTION WIDTH 18.6 % (11.5-14.5); WHITE BLOOD COUNT 3.4 K/uL (4.8-10.8)
--- NOTE | 2017-09-26 08:12 | CP.CCUPN ---
CCU Subjective - Physician Review Events Since Last Encounter (Free Text): 09/26/17 08:09 Feeling good, no abdominal pain, hungry , BP has been stable , slight drop in Hb , probably due to hemorrhoid, no clinical evidence of upper GIB, was seen by GI this morning, cleared for transfer to floor and no need for any more transfusion , patient on regular diet now, tolerating well. CCU Objective - Vital Signs / Intake & Output Vital Signs (Last 4 hours): Vital Signs Temp Pulse Resp Pulse Ox 09/26/17 06:00 97.6 F 75 25 H 98 Intake and Output (Last 8hrs): Intake & Output 09/25/17 09/26/17 09/26/17 22:59 06:59 14:59 Intake Total 1330 290 Output Total 725 910 Balance 605 -620 Weight 167 lb 14.4 oz Intake: IV 1210 10 Intake, Piggyback 100 Oral 120 180 Output: Urine 725 910 Urine, Voided 725 910 - Physical Exam Narrative Physical Exam (Free Text): 09/26/17 08:12 P/E Neck: No JVD Lungs: no ronchi, crackles Abdomen: soft, non-tender Ext: No edema Heart: no gallop - Medications Active Medications: Active Medications Generic Name Dose Route Start Last Admin Trade Name Freq PRN Reason Stop Dose Admin Hydrocortisone 25 mg 09/25/17 09:00 09/25/17 16:49 Anusol-Hc NC 10/08/17 17:01 25 mg BID JANNIE Administration Hydrocortisone 1 applic 09/25/17 09:00 09/25/17 18:18 Anusol-Hc NC 10/08/17 17:01 Not Given BID JANNIE Levetiracetam 500 mg/ Sodium 105 mls @ 210 mls/hr 09/25/17 09:00 09/25/17 21: 00 Chloride IVPB 210 mls/hr Q12 JANNIE Administration Lorazepam 1 mg 09/25/17 04:55 09/25/17 23:15 Ativan IVP 1 mg Q4H PRN Administration Symptoms of alcohol withdrawl Ondansetron HCl 4 mg 09/25/17 00:51 Zofran Inj IVP Q6 PRN Nausea/Vomiting Pantoprazole Sodium 40 mg 09/25/17 17:00 09/25/17 16:49 Protonix Ec Tab PO 40 mg BID JANNIE Administration - Patient Studies Lab Studies: Lab Studies 09/26/17 09/26/17 09/25/17 Range/Units 04:31 04:31 16:25 WBC 3.4 L 4.1 L (4.8-10.8) K/uL RBC 2.42 L 2.61 L (4.40-5.90) Mil/uL Hgb 7.7 L 8.1 L (12.0-18.0) g/dL Hct 23.2 L 24.9 L (35.0-51.0) % MCV 96.2 H 95.2 H (80.0-94.0) fl MCH 31.7 H 31.1 H (27.0-31.0) pg MCHC 33.0 32.7 L (33.0-37.0) g/dL RDW 18.6 H 19.0 H (11.5-14.5) % Plt Count 73 L 71 L (130-400) K/uL MPV 7.9 (7.2-11.7) fl Neut % (Auto) 51.5 (50.0-75.0) % Lymph % (Auto) 24.2 (20.0-40.0) % [place] % (Auto) 14.1 H (0.0-10.0) % Eos % (Auto) 9.1 H (0.0-4.0) % Baso % (Auto) 1.1 (0.0-2.0) % Neut # (Auto) 2.1 (1.8-7.0) K/uL Lymph # (Auto) 1.0 (1.0-4.3) K/uL [place] # (Auto) 0.6 (0.0-0.8) K/uL Eos # (Auto) 0.4 (0.0-0.7) K/uL Baso # (Auto) 0.0 (0.0-0.2) K/uL Sodium 139 (132-148) mmol/l Potassium 3.5 L (3.6-5.0) MMOL/L Chloride 108 H (98-107) mmol/L Carbon Dioxide 21 L (22-30) mmol/L Anion Gap 14 (10-20) BUN 12 (9-20) mg/dl Creatinine 0.7 L (0.8-1.5) mg/dl Est GFR ( Amer) > 60 Est GFR (Non-Af Amer) > 60 Random Glucose 101 (75-110) mg/dL Calcium 7.7 L (8.4-10.2) mg/dL Phosphorus 3.3 (2.5-4.5) mg/dl Magnesium 1.5 L (1.6-2.3) MG/DL Total Bilirubin 2.9 H (0.2-1.3) mg/dl Direct Bilirubin 1.1 H (0.0-0.4) mg/ml AST 83 H (17-59) U/L ALT 51 (21-72) U/L Alkaline Phosphatase 144 H (38-126) U/L Total Protein 5.7 L (6.3-8.2) G/DL Albumin 2.3 L (3.5-5.0) g/dL Globulin 3.4 (2.2-3.9) gm/dL Albumin/Globulin Ratio 0.7 L (1.0-2.1) Blood Type Antibody Screen Crossmatch BBK History Checked 09/25/17 09/25/17 09/24/17 Range/Units 10:00 10:00 22:47 WBC 3.8 L (4.8-10.8) K/uL RBC 2.61 L (4.40-5.90) Mil/uL Hgb 8.2 L D (12.0-18.0) g/dL Hct 24.8 L (35.0-51.0) % MCV 95.0 H (80.0-94.0) fl MCH 31.3 H (27.0-31.0) pg MCHC 32.9 L (33.0-37.0) g/dL RDW 18.5 H (11.5-14.5) % Plt Count 84 L (130-400) K/uL MPV 8.0 (7.2-11.7) fl Neut % (Auto) 54.6 (50.0-75.0) % Lymph % (Auto) 21.5 (20.0-40.0) % [place] % (Auto) 11.3 H (0.0-10.0) % Eos % (Auto) 11.7 H (0.0-4.0) % Baso % (Auto) 0.9 (0.0-2.0) % Neut # (Auto) 2.1 (1.8-7.0) K/uL Lymph # (Auto) 0.8 L (1.0-4.3) K/uL [place] # (Auto) 0.4 (0.0-0.8) K/uL Eos # (Auto) 0.4 (0.0-0.7) K/uL Baso # (Auto) 0.0 (0.0-0.2) K/uL Sodium 143 (132-148) mmol/l Potassium 4.0 (3.6-5.0) MMOL/L Chloride 111 H (98-107) mmol/L Carbon Dioxide 19 L (22-30) mmol/L Anion Gap 17 (10-20) BUN 15 (9-20) mg/dl Creatinine 0.7 L (0.8-1.5) mg/dl Est GFR ( Amer) > 60 Est GFR (Non-Af Amer) > 60 Random Glucose 97 (75-110) mg/dL Calcium 7.9 L (8.4-10.2) mg/dL Phosphorus (2.5-4.5) mg/dl Magnesium 1.6 (1.6-2.3) MG/DL Total Bilirubin (0.2-1.3) mg/dl Direct Bilirubin (0.0-0.4) mg/ml AST (17-59) U/L ALT (21-72) U/L Alkaline Phosphatase (38-126) U/L Total Protein (6.3-8.2) G/DL Albumin (3.5-5.0) g/dL Globulin (2.2-3.9) gm/dL Albumin/Globulin Ratio (1.0-2.1) Blood Type O POSITIVE Antibody Screen Negative Crossmatch See Detail BBK History Checked Patient has bt Laboratory Results - last 24 hr 09/24/17 09/25/17 09/25/17 22:47 10:00 10:00 WBC 3.8 L RBC 2.61 L Hgb 8.2 L D Hct 24.8 L MCV 95.0 H MCH 31.3 H MCHC 32.9 L RDW 18.5 H Plt Count 84 L MPV 8.0 Neut % (Auto) 54.6 Lymph % (Auto) 21.5 [place] % (Auto) 11.3 H Eos % (Auto) 11.7 H Baso % (Auto) 0.9 Neut # (Auto) 2.1 Lymph # (Auto) 0.8 L [place] # (Auto) 0.4 Eos # (Auto) 0.4 Baso # (Auto) 0.0 Sodium 143 Potassium 4.0 Chloride 111 H Carbon Dioxide 19 L Anion Gap 17 BUN 15 Creatinine 0.7 L Est GFR ( Amer) > 60 Est GFR (Non-Af Amer) > 60 Random Glucose 97 Calcium 7.9 L Phosphorus Magnesium 1.6 Total Bilirubin Direct Bilirubin AST ALT Alkaline Phosphatase Total Protein Albumin Globulin Albumin/Globulin Ratio Blood Type O POSITIVE Antibody Screen Negative Crossmatch See Detail BBK History Checked Patient has bt 09/25/17 09/26/17 09/26/17 16:25 04:31 04:31 WBC 4.1 L 3.4 L RBC 2.61 L 2.42 L Hgb 8.1 L 7.7 L Hct 24.9 L 23.2 L MCV 95.2 H 96.2 H MCH 31.1 H 31.7 H MCHC 32.7 L 33.0 RDW 19.0 H 18.6 H Plt Count 71 L 73 L MPV 7.9 Neut % (Auto) 51.5 Lymph % (Auto) 24.2 [place] % (Auto) 14.1 H Eos % (Auto) 9.1 H Baso % (Auto) 1.1 Neut # (Auto) 2.1 Lymph # (Auto) 1.0 [place] # (Auto) 0.6 Eos # (Auto) 0.4 Baso # (Auto) 0.0 Sodium 139 Potassium 3.5 L Chloride 108 H Carbon Dioxide 21 L Anion Gap 14 BUN 12 Creatinine 0.7 L Est GFR ( Amer) > 60 Est GFR (Non-Af Amer) > 60 Random Glucose 101 Calcium 7.7 L Phosphorus 3.3 Magnesium 1.5 L Total Bilirubin 2.9 H Direct Bilirubin 1.1 H AST 83 H ALT 51 Alkaline Phosphatase 144 H Total Protein 5.7 L Albumin 2.3 L Globulin 3.4 Albumin/Globulin Ratio 0.7 L Blood Type Antibody Screen Crossmatch BBK History Checked Critical Care Progress Note - Nutrition Nutrition: Nutrition Category Date Time Status Altered GI/Hepatic Diet [DIET] Diets 09/25/17 Lunch Active Assessment/Plan - Assessment and Plan (Free Text) Assessment: Upper GIB Anemia: blood loss, stable Cirrhosis Seizures Hypokalemia : mild Plan: Transfer to med-surg, cleared by GI Continue to monitor Hb , daily, DC home when cleared by GI Kcl: Po 20 meq Continue current meds.
--- NOTE | 2017-09-26 08:13 | CP.PCM.PN ---
<Abelino Sherman - Last Filed: 09/26/17 09:01> Subjective - Date & Time of Evaluation Date of Evaluation: 09/26/17 Time of Evaluation: 07:00 - Subjective Subjective: PGY5 GI Fellow Progress Note Patient seen and examined bedside this morning. States he is feeling better. No episodes of nausea/vomiting since arrival. No episodes of dark stool/melena since admission. Asked to leave AMA last night but decided to stay. Asking if he can go home now. 12 system ROS performed and negative except where stated. Objective - Vital Signs/Intake and Output Vital Signs (last 24 hours): Temp Pulse Resp BP Pulse Ox 97.6 F 75 25 H 116/63 98 09/26/17 06:00 09/26/17 06:00 09/26/17 06:00 09/26/17 04:00 09/26/17 06:00 Intake and Output: 09/26/17 09/26/17 06:59 18:59 Intake Total 420 Output Total 1635 Balance -1215 - Medications Medications: Current Medications Hydrocortisone (Anusol-Hc) 25 mg ND BID [facility] Stop: 10/08/17 17:01 Last Admin: 09/25/17 16:49 Dose: 25 mg Hydrocortisone (Anusol-Hc) 1 applic ND BID JANNIE Stop: 10/08/17 17:01 Last Admin: 09/25/17 18:18 Dose: Not Given Levetiracetam 500 mg/ Sodium (Chloride) 105 mls @ 210 mls/hr IVPB Q12 [facility] Last Admin: 09/25/17 21:00 Dose: 210 mls/hr Lorazepam (Ativan) 1 mg IVP Q4H PRN PRN Reason: Symptoms of alcohol withdrawl Last Admin: 09/25/17 23:15 Dose: 1 mg Ondansetron HCl (Zofran Inj) 4 mg IVP Q6 PRN PRN Reason: Nausea/Vomiting Pantoprazole Sodium (Protonix Ec Tab) 40 mg PO BID JANNIE Last Admin: 09/25/17 16:49 Dose: 40 mg - Labs Labs: 09/26/17 04:31 09/26/17 04:31 PT 19.8 Seconds (9.8-13.1) H 09/24/17 22:24 INR 1.8 (0.9-1.2) H 09/24/17 22:24 APTT 36.9 Seconds (25.6-37.1) 09/24/17 22:24 - Constitutional Appears: No Acute Distress, Unkempt - Eye Exam Eye Exam: EOMI, PERRL - ENT Exam ENT Exam: Mucous Membranes Moist - Respiratory Exam Respiratory Exam: Clear to Ausculation Bilateral. absent: Rales, Rhonchi, Wheezes - Cardiovascular Exam Cardiovascular Exam: RRR, +S1, +S2 - GI/Abdominal Exam GI & Abdominal Exam: Soft, Normal Bowel Sounds. absent: Distended, Firm, Guarding, Rigid, Tenderness, Organomegaly - Extremities Exam Extremities Exam: Normal Inspection. absent: Pedal Edema - Neurological Exam Neurological Exam: Alert, Awake, Oriented x3 - Psychiatric Exam Psychiatric exam: Normal Affect, Normal Mood - Skin Skin Exam: Dry, Warm Assessment and Plan - Assessment and Plan (Free Text) Assessment: Patient is a 52yo male with PMHx significant for decompensated EtOH cirrhosis s/ p TIPS (2014), severe esophagitis, upper GI bleeding with visible vessel at EGJ , epilepsy who presented to the ED with complaint of hematemesis and dark stool -Anemia -Decompensated EtOH cirrhosis s/p TIPS -Epilepsy with possible recent EtOH withdrawal seizures -LA Grade C esophagitis -Large external/internal hemorrhoids -EtOH abuse, dependence Plan: -No evidence of overt GI bleeding since admission -No further episodes of nausea, no melena noted by nursing staff/patient -S/P 2 units PRBCs - HGB slightly down to 7.7 this morning -Recommend continuing PPI at 40mg PO BIDAC -Indirect hyperbilirubinemia noted - R/O hemolysis (LDH, haptoglobin, retic count), YUNIOR (iron panel), Ineffective erythropoesis (check B12/folate) vs Gilbert's syndrome -Patient will benefit from outpatient follow up for repeat colonoscopy ( previously poor prep) and EGD -Diet as tolerated -Continue use of Annusol-HC suppository ND and Annusol-HC cream to be applied externally to treat internal/external hemorrhoids -Avoid constipation, augment fiber/water in diet -Encourage EtOH cessation <Gurpreet Germain - Last Filed: 09/26/17 09:08> Objective - Vital Signs/Intake and Output Vital Signs (last 24 hours): Temp Pulse Resp BP Pulse Ox 97.6 F 75 25 H 116/63 98 04/08/18 06:00 09/26/17 06:00 09/26/17 06:00 09/26/17 04:00 09/26/17 06:00 Intake and Output: 09/26/17 09/26/17 06:59 18:59 Intake Total 420 Output Total 1635 Balance -1215 - Medications Medications: Current Medications Hydrocortisone (Anusol-Hc) 25 mg ND BID [facility] Stop: 10/08/17 17:01 Last Admin: 09/25/17 16:49 Dose: 25 mg Hydrocortisone (Anusol-Hc) 1 applic ND BID [facility] Stop: 10/08/17 17:01 Last Admin: 09/25/17 18:18 Dose: Not Given Levetiracetam 500 mg/ Sodium (Chloride) 105 mls @ 210 mls/hr IVPB Q12 [facility] Last Admin: 09/25/17 21:00 Dose: 210 mls/hr Lorazepam (Ativan) 1 mg IVP Q4H PRN PRN Reason: Symptoms of alcohol withdrawl Last Admin: 09/25/17 23:15 Dose: 1 mg Ondansetron HCl (Zofran Inj) 4 mg IVP Q6 PRN PRN Reason: Nausea/Vomiting Pantoprazole Sodium (Protonix Ec Tab) 40 mg PO BID [facility] Last Admin: 09/25/17 16:49 Dose: 40 mg - Labs Labs: 09/26/17 04:31 09/26/17 04:31 PT 19.8 Seconds (9.8-13.1) H 09/24/17 22:24 INR 1.8 (0.9-1.2) H 09/24/17 22:24 APTT 36.9 Seconds (25.6-37.1) 09/24/17 22:24 Attending/Attestation - Attestation I have personally seen and examined this patient.: Yes I have fully participated in the care of the patient.: Yes I have reviewed all pertinent clinical information, including history, physical exam and plan: Yes Notes (Text): 09/26/17 09:03 I have seen and examined patient with GI fellow. Patient seen sitting at bedside eating breakfast, appears comfortable. He denies abdominal pain, nausea , vomiting, fever/chills. He had 3 bowel movements yesterday, no bleeding as per patient. Review of vitals from today are normal. ETOH decompensated cirrhosis s/p TIPS Epilepsy Anemia Internal/external hemorrhoids - Low sodium diet as tolerated - H/H stable, s/p PRBC transfusion - ETOH cessation counseling provided to patient - Continue with PPI therapy - Continue anusol suppository therapy - No further planned GI intervention, suggest additional outpatient follow up with Dr. Bradley. Will sign off case, please reconsult as necessary, thank you.
[2017-09-26] MEDS ORDERED: Potassium Chloride 20 mEq ER Tab PO ONE (08:30)
[2017-09-26] MEDS: Hydrocortisone 2.5% (Rectal) CREAM PR SCH (09:49)
[2017-09-26] MEDS: Pantoprazole 40 mg EC Tab PO SCH (09:50)
[2017-09-26] MEDS: levETIRAcetam 500 MG in Sodium Chloride 0.9% 100 ML IVPB SCH (09:50)
[2017-09-26 10:45] VITALS: TEMP 99; O2SAT 96
[2017-09-26 10:46] VITALS: BP 130/69; PULSE 70; RESP 14
[2017-09-26 11:29] LABS: % IRON SATURATION 12.285 % (20-55)
[2017-09-26 11:39] LABS: FERRITIN 43.9 ng/Ml (17.9-464)
--- NOTE | 2017-09-26 13:07 | CP.PCM.DIS ---
<Faiza Callahan - Last Filed: 09/26/17 13:03> Provider - Provider Date of Admission: 09/24/17 23:33 Attending physician: Chanelle Rowe MD Time Spent in preparation of Discharge (in minutes): 20 Diagnosis - Discharge Diagnosis (1) GI bleed Status: Acute Hospital Course - Lab Results Lab Results: Most Recent Lab Values WBC 3.4 K/uL (4.8-10.8) L 09/26/17 04:31 RBC 2.42 Mil/uL (4.40-5.90) L 09/26/17 04:31 Hgb 7.7 g/dL (12.0-18.0) L 09/26/17 04:31 Hct 23.2 % (35.0-51.0) L 09/26/17 04:31 MCV 96.2 fl (80.0-94.0) H 09/26/17 04:31 MCH 31.7 pg (27.0-31.0) H 09/26/17 04:31 MCHC 33.0 g/dL (33.0-37.0) 09/26/17 04:31 RDW 18.6 % (11.5-14.5) H 09/26/17 04:31 Plt Count 73 K/uL (130-400) L 09/26/17 04:31 MPV 7.9 fl (7.2-11.7) 09/25/17 16:25 Neut % (Auto) 51.5 % (50.0-75.0) 09/25/17 16:25 Lymph % (Auto) 24.2 % (20.0-40.0) 09/25/17 16:25 [place] % (Auto) 14.1 % (0.0-10.0) H 09/25/17 16:25 Eos % (Auto) 9.1 % (0.0-4.0) H 09/25/17 16:25 Baso % (Auto) 1.1 % (0.0-2.0) 09/25/17 16:25 Neut # (Auto) 2.1 K/uL (1.8-7.0) 09/25/17 16:25 Lymph # (Auto) 1.0 K/uL (1.0-4.3) 09/25/17 16:25 [place] # (Auto) 0.6 K/uL (0.0-0.8) 09/25/17 16:25 Eos # (Auto) 0.4 K/uL (0.0-0.7) 09/25/17 16:25 Baso # (Auto) 0.0 K/uL (0.0-0.2) 09/25/17 16:25 Retic Count 3.2 % (0.5-1.5) H D 09/26/17 10:04 PT 19.8 Seconds (9.8-13.1) H 09/24/17 22:24 INR 1.8 (0.9-1.2) H 09/24/17 22:24 APTT 36.9 Seconds (25.6-37.1) 09/24/17 22:24 Sodium 139 mmol/l (132-148) 09/26/17 04:31 Potassium 3.5 MMOL/L (3.6-5.0) L 09/26/17 04:31 Chloride 108 mmol/L (98-107) H 09/26/17 04:31 Carbon Dioxide 21 mmol/L (22-30) L 09/26/17 04:31 Anion Gap 14 (10-20) 09/26/17 04:31 BUN 12 mg/dl (9-20) 09/26/17 04:31 Creatinine 0.7 mg/dl (0.8-1.5) L 09/26/17 04:31 Est GFR ( Amer) > 60 09/26/17 04:31 Est GFR (Non-Af Amer) > 60 09/26/17 04:31 Random Glucose 101 mg/dL (75-110) 09/26/17 04:31 Calcium 7.7 mg/dL (8.4-10.2) L 09/26/17 04:31 Phosphorus 3.3 mg/dl (2.5-4.5) 09/26/17 04:31 Magnesium 1.5 MG/DL (1.6-2.3) L 09/26/17 04:31 Iron 43 ug/dL (49-181) L 09/26/17 10:04 TIBC 350 ug/dL (250-450) 09/26/17 10:04 % Saturation 12.285 % (20-55) L 09/26/17 10:04 Ferritin 43.9 ng/Ml (17.9-464) 09/26/17 10:04 Total Bilirubin 2.9 mg/dl (0.2-1.3) H 09/26/17 04:31 Direct Bilirubin 1.1 mg/ml (0.0-0.4) H 09/26/17 04:31 AST 83 U/L (17-59) H 09/26/17 04:31 ALT 51 U/L (21-72) 09/26/17 04:31 Alkaline Phosphatase 144 U/L (38-126) H 09/26/17 04:31 Lactate Dehydrogenase 626 U/L (313-618) H 09/26/17 10:04 Total Protein 5.7 G/DL (6.3-8.2) L 09/26/17 04:31 Albumin 2.3 g/dL (3.5-5.0) L 09/26/17 04:31 Globulin 3.4 gm/dL (2.2-3.9) 09/26/17 04:31 Albumin/Globulin Ratio 0.7 (1.0-2.1) L 09/26/17 04:31 Lipase 154 U/L (23-300) 09/24/17 22:24 Vitamin B12 > 1000 pg/mL (239-931) H 09/26/17 10:04 Urine Opiates Screen Negative (NEGATIVE) 09/25/17 00:07 Urine Methadone Screen Negative (NEGATIVE) 09/25/17 00:07 Ur Barbiturates Screen Negative (NEGATIVE) 09/25/17 00:07 Ur Phencyclidine Scrn Negative (NEGATIVE) 09/25/17 00:07 Ur Amphetamines Screen Negative (NEGATIVE) 09/25/17 00:07 U Benzodiazepines Scrn Negative (NEGATIVE) 09/25/17 00:07 U Oth Cocaine Metabols Negative (NEGATIVE) 09/25/17 00:07 U Cannabinoids Screen Negative (NEGATIVE) 09/25/17 00:07 Alcohol, Quantitative < 10 mg/dl (0-10) 09/24/17 22:24 Blood Type O POSITIVE 09/24/17 22:47 Antibody Screen Negative 09/24/17 22:47 Crossmatch See Detail 09/24/17 22:47 BBK History Checked Patient has bt 09/24/17 22:47 - Hospital Course Hospital Course: 52 y/o male with a PMHx remarkable for Seizures, ETOH Abuse, Hepatic encephalopathy, Pancytopenia, Alcohol Liver Cirrhosis with TIPs admitted for vomiting blood. Pt required 2u PRBC and 1u FFPE with H/H improved and stabilized after transfusion. GI Dr. Germain evaluated pt and no further intervention incated during admission and pt tolerating PO with no further episodes of vomiting. D/c with PPI and zofran. Pt to FU with GI and NHC. Discharge Exam - Head Exam Head Exam: ATRAUMATIC, NORMAL INSPECTION - Eye Exam Eye Exam: Normal appearance - ENT Exam ENT Exam: Mucous Membranes Moist - Neck Exam Neck exam: Full Rom, Normal Inspection - Respiratory Exam Respiratory Exam: NORMAL BREATHING PATTERN - Cardiovascular Exam Cardiovascular Exam: REGULAR RHYTHM - GI/Abdominal Exam GI & Abdominal Exam: Soft. absent: Tenderness - Extremities Exam Extremities exam: normal inspection - Back Exam Back exam: NORMAL INSPECTION - Neurological Exam Neurological exam: Alert, Oriented x3 - Skin Skin Exam: Dry, Warm Discharge Plan - Discharge Medications Prescriptions: Ondansetron [Zofran] 4 mg PO Q6H #15 tab Pantoprazole [Protonix EC Tab] 40 mg PO BID 15 Days #30 ect - Follow Up Plan Condition: CRITICAL Disposition: HOME/ ROUTINE Referrals: [facility] [Outside] Gage Bradley MD [Medical Doctor] - <Jennifer Ray - Last Filed: 09/27/17 06:51> Provider - Provider Date of Admission: 09/24/17 23:33 Attending physician: Chanelle Rowe MD Hospital Course - Lab Results Lab Results: Most Recent Lab Values WBC 3.4 K/uL (4.8-10.8) L 09/26/17 04:31 RBC 2.42 Mil/uL (4.40-5.90) L 09/26/17 04:31 Hgb 7.7 g/dL (12.0-18.0) L 09/26/17 04:31 Hct 23.2 % (35.0-51.0) L 09/26/17 04:31 MCV 96.2 fl (80.0-94.0) H 09/26/17 04:31 MCH 31.7 pg (27.0-31.0) H 09/26/17 04:31 MCHC 33.0 g/dL (33.0-37.0) 09/26/17 04:31 RDW 18.6 % (11.5-14.5) H 09/26/17 04:31 Plt Count 73 K/uL (130-400) L 09/26/17 04:31 MPV 7.9 fl (7.2-11.7) 09/25/17 16:25 Neut % (Auto) 51.5 % (50.0-75.0) 09/25/17 16:25 Lymph % (Auto) 24.2 % (20.0-40.0) 09/25/17 16:25 [place] % (Auto) 14.1 % (0.0-10.0) H 09/25/17 16:25 Eos % (Auto) 9.1 % (0.0-4.0) H 09/25/17 16:25 Baso % (Auto) 1.1 % (0.0-2.0) 09/25/17 16:25 Neut # (Auto) 2.1 K/uL (1.8-7.0) 09/25/17 16:25 Lymph # (Auto) 1.0 K/uL (1.0-4.3) 09/25/17 16:25 [place] # (Auto) 0.6 K/uL (0.0-0.8) 09/25/17 16:25 Eos # (Auto) 0.4 K/uL (0.0-0.7) 09/25/17 16:25 Baso # (Auto) 0.0 K/uL (0.0-0.2) 09/25/17 16:25 Retic Count 3.2 % (0.5-1.5) H D 09/26/17 10:04 Haptoglobin < 20.0 mg/dL (30.0-200.0) L 09/26/17 10:04 PT 19.8 Seconds (9.8-13.1) H 09/24/17 22:24 INR 1.8 (0.9-1.2) H 09/24/17 22:24 APTT 36.9 Seconds (25.6-37.1) 09/24/17 22:24 Sodium 139 mmol/l (132-148) 09/26/17 04:31 Potassium 3.5 MMOL/L (3.6-5.0) L 09/26/17 04:31 Chloride 108 mmol/L (98-107) H 09/26/17 04:31 Carbon Dioxide 21 mmol/L (22-30) L 09/26/17 04:31 Anion Gap 14 (10-20) 09/26/17 04:31 BUN 12 mg/dl (9-20) 09/26/17 04:31 Creatinine 0.7 mg/dl (0.8-1.5) L 09/26/17 04:31 Est GFR ( Amer) > 60 09/26/17 04:31 Est GFR (Non-Af Amer) > 60 09/26/17 04:31 Random Glucose 101 mg/dL (75-110) 09/26/17 04:31 Calcium 7.7 mg/dL (8.4-10.2) L 09/26/17 04:31 Phosphorus 3.3 mg/dl (2.5-4.5) 09/26/17 04:31 Magnesium 1.5 MG/DL (1.6-2.3) L 09/26/17 04:31 Iron 43 ug/dL (49-181) L 09/26/17 10:04 TIBC 350 ug/dL (250-450) 09/26/17 10:04 % Saturation 12.285 % (20-55) L 09/26/17 10:04 Ferritin 43.9 ng/Ml (17.9-464) 09/26/17 10:04 Total Bilirubin 2.9 mg/dl (0.2-1.3) H 09/26/17 04:31 Direct Bilirubin 1.1 mg/ml (0.0-0.4) H 09/26/17 04:31 AST 83 U/L (17-59) H 09/26/17 04:31 ALT 51 U/L (21-72) 09/26/17 04:31 Alkaline Phosphatase 144 U/L (38-126) H 09/26/17 04:31 Lactate Dehydrogenase 626 U/L (313-618) H 09/26/17 10:04 Total Protein 5.7 G/DL (6.3-8.2) L 09/26/17 04:31 Albumin 2.3 g/dL (3.5-5.0) L 09/26/17 04:31 Globulin 3.4 gm/dL (2.2-3.9) 09/26/17 04:31 Albumin/Globulin Ratio 0.7 (1.0-2.1) L 09/26/17 04:31 Lipase 154 U/L (23-300) 09/24/17 22:24 Vitamin B12 > 1000 pg/mL (239-931) H 09/26/17 10:04 Folate 16.3 ng/mL 09/26/17 10:04 Urine Opiates Screen Negative (NEGATIVE) 09/25/17 00:07 Urine Methadone Screen Negative (NEGATIVE) 09/25/17 00:07 Ur Barbiturates Screen Negative (NEGATIVE) 09/25/17 00:07 Ur Phencyclidine Scrn Negative (NEGATIVE) 09/25/17 00:07 Ur Amphetamines Screen Negative (NEGATIVE) 09/25/17 00:07 U Benzodiazepines Scrn Negative (NEGATIVE) 09/25/17 00:07 U Oth Cocaine Metabols Negative (NEGATIVE) 09/25/17 00:07 U Cannabinoids Screen Negative (NEGATIVE) 09/25/17 00:07 Alcohol, Quantitative < 10 mg/dl (0-10) 09/24/17 22:24 Blood Type O POSITIVE 09/24/17 22:47 Antibody Screen Negative 09/24/17 22:47 Crossmatch See Detail 09/24/17 22:47 BBK History Checked Patient has bt 09/24/17 22:47 ED Physician Attestation - Attestation I have personally seen and examined this patient.: Yes I have fully participated in the care of the patient.: Yes I have reviewed all pertinent clinical information, including history, physical exam and plan: Yes Notes (Text): 09/27/17 06:50 ATTENDING NOTE ATTESTATION. PATIENT SEEN AND EXAMINED. CASE DISUSSED WITH RESIDENT. PATIENT DIES VOMITING OR ABD PAIN SINCE DAY OF ADMISSION. PATIENT REPORTS HE FEELS WELL AND WANTS TO GO HOME. PATIENT UNDERSTANDS THAT HE SHOULD NOT DRINK ANY ETOH. PATIENT TOLD TO RETURN TO ED/HOSPITAL IF HE DEVELOPS ABDOMINAL PAIN, VOMITING OR FEVER. PATIENT REPORTS HE WILL. AGREE WITH FINDINGS AND PLAN.
[2017-09-26 19:58] LABS: FOLATE 16.3 ng/mL
--- NOTE | 2017-09-27 13:42 | CARD ---
APPROVED REPORT EKG Measurement Heart [id number] <Conclusion> Sinus tachycardia with premature atrial complexes Otherwise normal ECG
== END 2017-09-26 12:49 | disposition home or self-care (01) | DRG 174 ==
LOC: H.ER 19:09 → H.ERHOLD 23:33 → H.ICU/CCU 09-25 00:10
PROVIDERS: ADMIT Family Medicine Geriatric Medicine; ATTEND Family Medicine Geriatric Medicine
PROC: 30233P1 Transfusion of Nonautologous Frozen Red Cells into Peripheral Vein, Percutaneous Approach (ICD-10-PCS; principal; 2017-09-25)
PROC: 30233N1 Transfusion of Nonautologous Red Blood Cells into Peripheral Vein, Percutaneous Approach (ICD-10-PCS; 2017-09-25)
DX: K92.0 Hematemesis (principal); K70.30 Alcoholic cirrhosis of liver without ascites; E87.6 Hypokalemia; D69.6 Thrombocytopenia, unspecified; D61.818 Other pancytopenia; F10.239 Alcohol dependence with withdrawal, unspecified; K22.10 Ulcer of esophagus without bleeding; K76.6 Portal hypertension; D50.0 Iron deficiency anemia secondary to blood loss (chronic); E83.42 Hypomagnesemia; G40.509 Epileptic seizures related to external causes, not intractable, without status epilepticus; K64.4 Residual hemorrhoidal skin tags; K64.8 Other hemorrhoids; F17.210 Nicotine dependence, cigarettes, uncomplicated; G89.29 Other chronic pain; K29.70 Gastritis, unspecified, without bleeding

== ENCOUNTER 2017-09-29 11:50 | Emergency (ER) | payer MEDICAID ==
[2017-09-29 11:57] VITALS: BMI 23.7
[2017-09-29 12:00] VITALS: BP 121/69; PULSE 106; RESP 20; TEMP 98.3; O2SAT 100
--- NOTE | 2017-09-29 12:26 | ED PDOC ---
HPI: General Adult Time Seen by Provider: 09/29/17 12:18 Chief Complaint (Nursing): Abdominal Pain Chief Complaint (Provider): Lab Reevaluation History Per: Patient History/Exam Limitations: no limitations Onset/Duration Of Symptoms: Days (x 2) Current Symptoms Are (Timing): Still Present Recently: Seen In ED, Hospitalized Additional Complaint(s): Shreyas is a 52 y/o male who recently came to the ED over the weekend after he vomited blood, and was admitted to the ICU for a blood transfer. Today, he is here for reevaluation of his labs. Patient states he had a CT at last visit which was negative. Now, he complains of some fatigue but no other current symptoms. PMD: Matt Moreno Past Medical History Reviewed: Historical Data, Nursing Documentation, Vital Signs Vital Signs: Last Vital Signs Temp 98.3 F 09/29/17 11:57 Pulse 106 H 09/29/17 11:57 Resp 20 09/29/17 11:57 BP 121/69 09/29/17 11:57 Pulse Ox 100 09/29/17 13:39 - Medical History PMH: Anemia, Back Problems (herniated disc), Deep Vein Thrombosis, Fractures ( rib fx, left shoulder, Left hand 5th digit, Humerus fracture), Gastritis, Pancreatitis, Seizures, Chronic Pain (left shoulder) Denies: Chronic Kidney Disease - Surgical History Surgical History: Endoscopy - Family History Family History: States: Unknown Family Hx - Home Medications Home Medications: Ambulatory Orders Medication Instructions Recorded levETIRAcetam [Keppra] 500 mg PO BID 10/16/16 Ondansetron [Zofran] 4 mg PO Q6H #15 tab 09/26/17 Pantoprazole [Protonix EC Tab] 40 mg PO BID 15 Days #30 ect 09/26/17 - Allergies Allergies/Adverse Reactions: Allergies Allergy/AdvReac Type Severity Reaction Status Date / Time aspirin Allergy NAUSEA Verified 09/29/17 11:59 ibuprofen [From Motrin] Allergy NAUSEA Verified 09/29/17 11:59 naproxen Allergy RASH Verified 09/29/17 11:59 NSAIDS (Non-Steroidal Allergy NAUSEA Verified 09/29/17 11:59 Anti-Inflamma Review of Systems ROS Statement: Except As Marked, All Systems Reviewed And Found Negative Constitutional: Positive for: Other (fatigue) Physical Exam - Reviewed Nursing Documentation Reviewed: Yes Vital Signs Reviewed: Yes - Physical Exam Appears: Positive for: Well, Non-toxic, No Acute Distress Skin: Positive for: Normal Color, Warm, Dry Cardiovascular/Chest: Positive for: Regular Rate, Rhythm. Negative for: Murmur Respiratory: Positive for: Normal Breath Sounds. Negative for: Respiratory Distress Neurologic/Psych: Positive for: Alert, Oriented. Negative for: Motor/Sensory Deficits - Laboratory Results Result Diagrams: 09/29/17 12:28 09/29/17 12:28 - ECG O2 Sat by Pulse Oximetry: 100 (RA) Pulse Ox Interpretation: Normal Medical Decision Making Medical Decision Making: Time: 12:22 Initial Impression: Lab Reevaluation Initial Plan: --CMP --CBC Time: 13:35 --Spoke to family practice resident and relayed lab results. Resident is happy with lab results and says he is stable. --Patient should make appointment with family practice to follow up. Scribe Attestation: Documented by Neal Edouard acting as a scribe for Blair Mitchell PA-C MD Scribe Attestation: All medical record entries made by the Scribe were at my direction and personally dictated by me. I have reviewed the chart and agree that the record accurately reflects my personal performance of the history, physical exam, medical decision making, and the department course for this patient. I have also personally directed, reviewed, and agree with the discharge instructions and disposition. Disposition - Clinical Impression Clinical Impression: Abnormal laboratory test result - Disposition Referrals: [facility] [Outside] Disposition Time: 13:41 Condition: GOOD Additional Instructions: Make follow up appointment with family practice clinic Instructions: Basic Metabolic Panel, Comprehensive Metabolic Panel, Electrolyte Panel Forms: [employer] (Pakistani)
[2017-09-29 12:54] LABS: BASO # 0.1 K/uL (0.0-0.2); BASO % 1.6 % (0.0-2.0); EOS # 0.4 K/uL (0.0-0.7); EOS % 12.7 % (0.0-4.0); HEMOGLOBIN 7.9 g/dL (12.0-18.0); LYMPH # 0.6 K/uL (1.0-4.3); LYMPH % 19.5 % (20.0-40.0); MEAN CELL VOLUME 95.7 fl (80.0-94.0); MEAN CORPUSCULAR HEMOGLOBIN 31.3 pg (27.0-31.0); MEAN CORPUSCULAR HGB CONC 32.7 g/dL (33.0-37.0); MEAN PLATELET VOLUME 7.6 fl (7.2-11.7); MONO # 0.5 K/uL (0.0-0.8); MONO % 15.6 % (0.0-10.0); NEUT # 1.7 K/uL (1.8-7.0); NEUT % 50.6 % (50.0-75.0); NRBC % 0.2 % (0.0-0.0); RBC 2.53 Mil/uL (4.40-5.90); RED CELL DISTRIBUTION WIDTH 18.8 % (11.5-14.5); WHITE BLOOD COUNT 3.3 K/uL (4.8-10.8)
[2017-09-29 13:07] LABS: ALB/GLOB RATIO 0.7 (1.0-2.1); ALBUMIN 2.8 g/dL (3.5-5.0); ALT/SGPT 61 U/L (21-72); AST/SGOT 120 U/L (17-59); BLOOD UREA NITROGEN 9 mg/dl (9-20); CALCIUM 8.2 mg/dL (8.4-10.2); GFR AFRICAN-AMERICAN > 60; GFR NON-AFRICAN AMERICAN > 60
== END 2017-09-29 13:42 | disposition home or self-care (01) ==
LOC: H.ER 11:50
DX: R79.9 Abnormal finding of blood chemistry, unspecified (principal); Z86.718 Personal history of other venous thrombosis and embolism; Z88.6 Allergy status to analgesic agent; G89.29 Other chronic pain

== ENCOUNTER 2017-09-30 15:22 | Emergency (ER) | payer MEDICAID ==
[2017-09-30 15:22] VITALS: BMI 23.7
[2017-09-30 15:29] VITALS: BP 131/72; TEMP 98.2; O2SAT 98
[2017-09-30 17:08] VITALS: PULSE 92; RESP 18
--- NOTE | 2017-09-30 17:14 | ED PDOC ---
HPI: General Adult Time Seen by Provider: 09/30/17 16:20 Chief Complaint (Nursing): Weakness/Neurological Deficit History Per: Patient Additional Complaint(s): Pt. states he was asked to come in today to get his HgB checked by Dr. Saldana form [facility]. Reports over the weekend in stayed overnight due to a GI bleed and his HgB was 6.9. Pt. states he was in ED yesterday and had his HgB checked but does not remember what it was. Offers no complaints at this time. Past Medical History Reviewed: Historical Data, Nursing Documentation, Vital Signs Vital Signs: Last Vital Signs Temp 98.2 F 09/30/17 15:27 Pulse 92 H 09/30/17 17:08 Resp 18 09/30/17 17:08 BP 131/72 09/30/17 15:27 Pulse Ox 98 09/30/17 17:59 - Medical History PMH: Anemia, Back Problems (herniated disc), Deep Vein Thrombosis, Fractures ( rib fx, left shoulder, Left hand 5th digit, Humerus fracture), Gastritis, Pancreatitis, Seizures, Chronic Pain (left shoulder) Denies: Chronic Kidney Disease - Surgical History Surgical History: Endoscopy - Family History Family History: States: No Known Family Hx - Home Medications Home Medications: Ambulatory Orders Medication Instructions Recorded levETIRAcetam [Keppra] 500 mg PO BID 10/16/16 Ondansetron [Zofran] 4 mg PO Q6H #15 tab 09/26/17 Pantoprazole [Protonix EC Tab] 40 mg PO BID 15 Days #30 ect 09/26/17 - Allergies Allergies/Adverse Reactions: Allergies Allergy/AdvReac Type Severity Reaction Status Date / Time aspirin Allergy NAUSEA Verified 09/29/17 11:59 ibuprofen [From Motrin] Allergy NAUSEA Verified 09/29/17 11:59 naproxen Allergy RASH Verified 09/29/17 11:59 NSAIDS (Non-Steroidal Allergy NAUSEA Verified 09/29/17 11:59 Anti-Inflamma Review of Systems ROS Statement: Except As Marked, All Systems Reviewed And Found Negative Physical Exam - Physical Exam Appears: Positive for: Well, Non-toxic, No Acute Distress Skin: Positive for: Normal Color, Warm. Negative for: Rash Eye Exam: Positive for: Normal appearance ENT: Positive for: Normal ENT Inspection Neck: Positive for: Normal, Painless ROM Cardiovascular/Chest: Positive for: Regular Rate, Rhythm. Negative for: Tachycardia Respiratory: Positive for: Normal Breath Sounds. Negative for: Respiratory Distress Gastrointestinal/Abdominal: Positive for: Normal Exam, Soft. Negative for: Tenderness Back: Positive for: Normal Inspection Neurologic/Psych: Positive for: Alert, Oriented, Gait (steady, unassisted). Negative for: Aphasia, Facial Droop - ECG O2 Sat by Pulse Oximetry: 98 - Progress ED Course And Treament: Case d/w Dr. Kendall, resident, who states pt. was not seen today in clinic and was actually seen on 09/27/2017. States a f/u appointment was arranged for 2 weeks. Reports HgB yesterday was 7.9 which is satisfactory as last HgB from admission in hospital was 7.7. 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 Advised to f/u with [facility] in 2 weeks for further evaluation. Disposition - Clinical Impression Clinical Impression: Anemia - Patient ED Disposition Is Patient to be Admitted: No - Disposition Referrals: [facility] [Outside] Disposition: Routine/Home Disposition Time: 16:30 Condition: STABLE Additional Instructions: Follow up with [facility] for further evaluation. Return to ED immediately for any concerns or questions. Instructions: Gastrointestinal Bleeding (DC) Forms: [employer] (Turkish) Print Language: SLOVAK
== END 2017-09-30 17:26 | disposition home or self-care (01) ==
LOC: H.ER 15:22 → SUPCPDRO 15:22 → H.ER 17:26
DX: D64.9 Anemia, unspecified (principal); G89.29 Other chronic pain; Z86.718 Personal history of other venous thrombosis and embolism; Z88.6 Allergy status to analgesic agent

== ENCOUNTER 2017-09-30 17:32 | Emergency (ER) | payer MEDICAID ==
[2017-09-30 17:32] VITALS: BMI 23.7
[2017-09-30 17:40] VITALS: BP 115/61; PULSE 104; RESP 16; TEMP 98.2; O2SAT 96
--- NOTE | 2017-09-30 19:38 | ED PDOC ---
HPI: Psych/Substance Abuse Time Seen by Provider: 09/30/17 17:43 Chief Complaint (Nursing): Alcohol Ingestion Chief Complaint (Provider): Alcohol abuse History Per: Patient History/Exam Limitations: no limitations Onset/Duration Of Symptoms: Mins Current Symptoms Are (Timing): Still Present Modifying Factor(s): Alcohol Additional Complaint(s): Pt reports drinking alcohol. Asking for food. Past Medical History Reviewed: Historical Data, Nursing Documentation, Vital Signs Vital Signs: Last Vital Signs Temp 98.2 F 09/30/17 17:39 Pulse 104 H 09/30/17 17:39 Resp 16 09/30/17 17:39 BP 115/61 09/30/17 17:39 Pulse Ox 96 09/30/17 17:39 - Medical History PMH: Anemia, Back Problems (herniated disc), Deep Vein Thrombosis, Fractures ( rib fx, left shoulder, Left hand 5th digit, Humerus fracture), Gastritis, Pancreatitis, Seizures, Chronic Pain (left shoulder) Denies: Chronic Kidney Disease - Surgical History Surgical History: Endoscopy - Family History Family History: States: Unknown Family Hx - Living Arrangements Living Arrangements: With Family - Social History Current smoker - smoking cessation education provided: No - Home Medications Home Medications: Ambulatory Orders Medication Instructions Recorded levETIRAcetam [Keppra] 500 mg PO BID 10/16/16 Ondansetron [Zofran] 4 mg PO Q6H #15 tab 09/26/17 Pantoprazole [Protonix EC Tab] 40 mg PO BID 15 Days #30 ect 09/26/17 - Allergies Allergies/Adverse Reactions: Allergies Allergy/AdvReac Type Severity Reaction Status Date / Time aspirin Allergy NAUSEA Verified 09/29/17 11:59 ibuprofen [From Motrin] Allergy NAUSEA Verified 09/29/17 11:59 naproxen Allergy RASH Verified 09/29/17 11:59 NSAIDS (Non-Steroidal Allergy NAUSEA Verified 09/29/17 11:59 Anti-Inflamma Review of Systems ROS Statement: Except As Marked, All Systems Reviewed And Found Negative Constitutional: Negative for: Fever, Chills Gastrointestinal: Negative for: Nausea, Vomiting, Abdominal Pain Genitourinary Male: Negative for: Dysuria Physical Exam - Reviewed Nursing Documentation Reviewed: Yes Vital Signs Reviewed: Yes - Physical Exam Appears: Positive for: Well, Non-toxic, No Acute Distress Head Exam: Positive for: ATRAUMATIC, NORMAL INSPECTION, NORMOCEPHALIC Skin: Positive for: Normal Color, Warm, DRY Eye Exam: Positive for: Normal appearance ENT: Positive for: Normal ENT Inspection Neck: Positive for: Normal, Painless ROM Cardiovascular/Chest: Positive for: Regular Rate, Rhythm Respiratory: Positive for: CNT, Normal Breath Sounds Back: Positive for: Normal Inspection Extremity: Positive for: Normal ROM Neurologic/Psych: Positive for: Alert, Oriented - ECG O2 Sat by Pulse Oximetry: 96 Medical Decision Making Medical Decision Making: Pt ate sandwich and asks for a seconds. 1937 - Clear speech and steady gait. Disposition - Clinical Impression Clinical Impression: Alcohol use - Patient ED Disposition Is Patient to be Admitted: No - Disposition Referrals: Provider TBD, [Primary Care Provider] - Disposition: Routine/Home Disposition Time: 19:37 Condition: GOOD Instructions: Alcohol Use - When Is Drinking a Problem?
== END 2017-09-30 20:26 | disposition home or self-care (01) ==
LOC: SUPCPDRO 17:32 → H.ER 17:32
DX: F10.129 Alcohol abuse with intoxication, unspecified (principal); G89.29 Other chronic pain; Z86.718 Personal history of other venous thrombosis and embolism; Z88.6 Allergy status to analgesic agent

== ENCOUNTER 2017-10-03 06:48 | Emergency (ER) | payer MEDICAID ==
[2017-10-03 06:49] VITALS: BMI 23.7
[2017-10-03 06:58] VITALS: BP 103/69; PULSE 85; RESP 16; TEMP 97.6; O2SAT 100
[2017-10-03 07:57] LABS: BASO # 0.1 K/uL (0.0-0.2); EOS # 0.8 K/uL (0.0-0.7); EOS % 14.7 % (0.0-4.0); HEMOGLOBIN 9.4 g/dL (12.0-18.0); LYMPH % 17.9 % (20.0-40.0); MEAN CORPUSCULAR HEMOGLOBIN 30.9 pg (27.0-31.0); MEAN CORPUSCULAR HGB CONC 32.8 g/dL (33.0-37.0); MEAN PLATELET VOLUME 8.2 fl (7.2-11.7); MONO # 0.6 K/uL (0.0-0.8); MONO % 10.8 % (0.0-10.0); NEUT # 3.1 K/uL (1.8-7.0); NEUT % 54.6 % (50.0-75.0); RBC 3.06 Mil/uL (4.40-5.90); RED CELL DISTRIBUTION WIDTH 18.7 % (11.5-14.5); WHITE BLOOD COUNT 5.6 K/uL (4.8-10.8)
--- NOTE | 2017-10-03 08:15 | ED PDOC ---
HPI:Nausea, Vomiting, Diarrhea Time Seen by Provider: 10/03/17 07:04 Chief Complaint (Nursing): GI Problem Chief Complaint (Provider): Vomiting Blood History Per: Patient History/Exam Limitations: no limitations Onset/Duration Of Symptoms: Days (10/03/17) Associated Symptoms: Vomiting (one episode) Additional Complaint(s): 52 year old male presents to the ED complaining of vomiting blood. Report he had one episode today, 10/03/17. Denies abdominal pain or drinking any alcohol. PMD: Elvin Swartz Past Medical History Reviewed: Historical Data, Nursing Documentation, Vital Signs Vital Signs: Last Vital Signs Temp 97.6 F 10/03/17 06:55 Pulse 85 10/03/17 06:55 Resp 16 10/03/17 06:55 BP 103/69 10/03/17 06:55 Pulse Ox 100 10/03/17 06:55 - Medical History PMH: Anemia, Back Problems (herniated disc), Deep Vein Thrombosis, Fractures ( rib fx, left shoulder, Left hand 5th digit, Humerus fracture), Gastritis, Pancreatitis, Seizures, Chronic Pain (left shoulder) Denies: Chronic Kidney Disease - Surgical History Surgical History: Endoscopy - Family History Family History: States: Unknown Family Hx - Social History Current smoker - smoking cessation education provided: Yes (light smoker < 10 Cigarettes Daily ) Alcohol: Social Drugs: Denies - Home Medications Home Medications: Ambulatory Orders Medication Instructions Recorded levETIRAcetam [Keppra] 500 mg PO BID 10/16/16 Ondansetron [Zofran] 4 mg PO Q6H #15 tab 09/26/17 Pantoprazole [Protonix EC Tab] 40 mg PO BID 15 Days #30 ect 09/26/17 Pantoprazole Sodium [Protonix] 40 mg PO DAILY #10 ect 10/03/17 - Allergies Allergies/Adverse Reactions: Allergies Allergy/AdvReac Type Severity Reaction Status Date / Time aspirin Allergy NAUSEA Verified 10/03/17 06:55 ibuprofen [From Motrin] Allergy NAUSEA Verified 10/03/17 06:55 naproxen Allergy RASH Verified 10/03/17 06:55 NSAIDS (Non-Steroidal Allergy NAUSEA Verified 10/03/17 06:55 Anti-Inflamma Review of Systems ROS Statement: Except As Marked, All Systems Reviewed And Found Negative Gastrointestinal: Positive for: Vomiting (one episode, bloody). Negative for: Abdominal Pain Psych: Negative for: Suicidal ideation (homicidal ideation ) Physical Exam - Reviewed Nursing Documentation Reviewed: Yes Vital Signs Reviewed: Yes - Physical Exam Appears: Positive for: Well, Non-toxic, No Acute Distress Head Exam: Positive for: ATRAUMATIC, NORMAL INSPECTION, NORMOCEPHALIC Skin: Positive for: Normal Color, Warm, Dry Cardiovascular/Chest: Positive for: Regular Rate, Rhythm. Negative for: Murmur Respiratory: Positive for: Normal Breath Sounds. Negative for: Decreased Breath Sounds, Accessory Muscle Use, Respiratory Distress Gastrointestinal/Abdominal: Positive for: Normal Exam, Bowel Sounds, Soft. Negative for: Tenderness, Guarding, Rebound Neurologic/Psych: Positive for: Alert, Oriented (x3), Other (sleeps comfortably ). Negative for: Motor/Sensory Deficits - Laboratory Results Result Diagrams: 10/03/17 07:46 - ECG O2 Sat by Pulse Oximetry: 100 (RA) Pulse Ox Interpretation: Normal Medical Decision Making Medical Decision Making: Time: 734 Initial Impression: hematemesis, exhaustion Initial Plan: --CBC w/ differential --Reevaluation Of note: patient is well known in ED for multiple visits. Last hemoglobin on 05/08 was 7.9. Currently no episodes of vomiting in ED. Clinical Impression: Gastritis Upon provider evaluation patient is medically stable, and requires no further treatment in the ED at this time. Patient will be discharged with Protonix for Gastritis. Counseling was provided and all questions were answered regarding diagnosis and need for follow up with PMD. There is agreement to discharge plan. Return if symptoms persist or worsen. Scribe Attestation: Documented by Jean Claude Whitmore, acting as a scribe for Luisana Escalante MD Provider Scribe Attestation: All medical record entries made by the Scribe were at my direction and personally dictated by me. I have reviewed the chart and agree that the record accurately reflects my personal performance of the history, physical exam, medical decision making, and the department course for this patient. I have also personally directed, reviewed, and agree with the discharge instructions and disposition. Disposition - Clinical Impression Clinical Impression: Gastritis - Patient ED Disposition Is Patient to be Admitted: No - Disposition Referrals: [facility] [Outside] Elvin Swartz MD [Staff Provider] - Disposition: Routine/Home Disposition Time: 08:21 Condition: STABLE Prescriptions: Pantoprazole Sodium [Protonix] 40 mg PO DAILY #10 ect Instructions: Gastritis Forms: [facility] (French)
== END 2017-10-03 08:39 | disposition home or self-care (01) ==
LOC: H.ER 06:48
DX: K92.0 Hematemesis (principal); Z86.718 Personal history of other venous thrombosis and embolism; Z88.6 Allergy status to analgesic agent

== ENCOUNTER 2017-10-03 18:51 | Emergency (ER) | payer MEDICAID ==
[2017-10-03 18:52] VITALS: BMI 23.7
[2017-10-03 18:55] VITALS: TEMP 98
[2017-10-03] MEDS ORDERED: Sodium Chloride 0.9% 1,000 ML IV STA (19:15)
--- NOTE | 2017-10-03 19:34 | ED PDOC ---
HPI: Seizure Time Seen by Provider: 10/03/17 19:09 Chief Complaint (Nursing): Seizure Chief Complaint (Provider): Seizure History Per: Patient History/Exam Limitations: no limitations Additional Complaint(s): Pt. states he had a seizure and hit head on the concrete. Witnessed by friend, per pt. Pt. takes his keppra for seizure. Denies etoh or drugs. No chest pain , dyspnea, fever, cough, leg pain, arm pain. Has R lower ribs pain which started after fall from seizure. Neck with no pain. Past Medical History Vital Signs: Last Vital Signs Temp 98.0 F 10/03/17 18:53 Pulse 101 H 10/03/17 18:53 Resp 16 10/03/17 18:53 BP 122/64 10/03/17 18:53 Pulse Ox 99 10/03/17 22:48 - Medical History PMH: Anemia, Back Problems (herniated disc), Deep Vein Thrombosis, Fractures ( rib fx, left shoulder, Left hand 5th digit, Humerus fracture), Gastritis, Pancreatitis, Seizures, Chronic Pain (left shoulder) Denies: Chronic Kidney Disease - Surgical History Surgical History: Endoscopy - Family History Family History: States: Unknown Family Hx - Home Medications Home Medications: Ambulatory Orders Medication Instructions Recorded levETIRAcetam [Keppra] 500 mg PO BID 10/16/16 Ondansetron [Zofran] 4 mg PO Q6H #15 tab 09/26/17 Pantoprazole [Protonix EC Tab] 40 mg PO BID 15 Days #30 ect 09/26/17 Pantoprazole Sodium [Protonix] 40 mg PO DAILY #10 ect 10/03/17 - Allergies Allergies/Adverse Reactions: Allergies Allergy/AdvReac Type Severity Reaction Status Date / Time aspirin Allergy NAUSEA Verified 10/03/17 06:55 ibuprofen [From Motrin] Allergy NAUSEA Verified 10/03/17 06:55 naproxen Allergy RASH Verified 10/03/17 06:55 NSAIDS (Non-Steroidal Allergy NAUSEA Verified 10/03/17 06:55 Anti-Inflamma Review of Systems ROS Statement: Except As Marked, All Systems Reviewed And Found Negative Cardiovascular: Positive for: Other (R rib pain) Neurological: Positive for: Seizures, Headache Physical Exam - Reviewed Nursing Documentation Reviewed: Yes Vital Signs Reviewed: Yes - Physical Exam Appears: Positive for: Non-toxic, No Acute Distress Head Exam: Positive for: ATRAUMATIC, NORMAL INSPECTION, NORMOCEPHALIC Skin: Positive for: Normal Color, Warm, DRY Eye Exam: Positive for: EOMI, Normal appearance, PERRL ENT: Positive for: Normal ENT Inspection Neck: Positive for: Normal, Painless ROM, Supple Cardiovascular/Chest: Positive for: Regular Rate, Rhythm Respiratory: Positive for: CNT, Normal Breath Sounds Gastrointestinal/Abdominal: Positive for: Normal Exam, Soft. Negative for: Tenderness Back: Positive for: Normal Inspection. Negative for: L CVA Tenderness, R CVA Tenderness Extremity: Positive for: Normal ROM. Negative for: Tenderness, Pedal Edema Neurologic/Psych: Positive for: Alert, principal planner II-XII, Oriented. Negative for: Motor/Sensory Deficits - Laboratory Results Result Diagrams: 10/03/17 20:30 10/03/17 20:30 Interpretation Of Abn Labs: 239 etoh; other labs similar to old - ECG ECG: Positive for: Interpreted By Me, Viewed By Me ECG Rhythm: Positive for: Normal QRS, Normal ST Segment, Sinus Rhythm O2 Sat by Pulse Oximetry: 99 Pulse Ox Interpretation: Normal - Radiology X-Ray: Interpreted by Me, Viewed By Me X-Ray Interpretation: No Acute Disease - CT Scan/US ct Other Rad Studies (CT/US): Read By Radiologist Other Rad Interpretation: no acute - Progress ED Course And Treament: 2313: Stable. Alert. Will give keppra extra dose today as pt. had possible break through seizure. Dr. Fernandez to take over care. Disposition - Clinical Impression Clinical Impression: Alcohol abuse, Seizure - Patient ED Disposition Is Patient to be Admitted: Transfer of Care - Disposition Disposition Time: 23:16 Condition: FAIR Instructions: Seizures, Adult (DC) Patient Signed Over To: Olaf Fernandez
[2017-10-03 20:42] LABS: BASO # 0.1 K/uL (0.0-0.2); BASO % 1.1 % (0.0-2.0); EOS # 0.5 K/uL (0.0-0.7); EOS % 10.6 % (0.0-4.0); HEMOGLOBIN 7.8 g/dL (12.0-18.0); LYMPH # 0.9 K/uL (1.0-4.3); MEAN CELL VOLUME 94.1 fl (80.0-94.0); MEAN CORPUSCULAR HEMOGLOBIN 30.4 pg (27.0-31.0); MEAN CORPUSCULAR HGB CONC 32.3 g/dL (33.0-37.0); MEAN PLATELET VOLUME 7.7 fl (7.2-11.7); MONO # 0.5 K/uL (0.0-0.8); NEUT # 2.8 K/uL (1.8-7.0); NEUT % 58.3 % (50.0-75.0); RBC 2.56 Mil/uL (4.40-5.90); RED CELL DISTRIBUTION WIDTH 18.8 % (11.5-14.5); WHITE BLOOD COUNT 4.8 K/uL (4.8-10.8)
[2017-10-03 21:29] LABS: ALB/GLOB RATIO 0.7 (1.0-2.1); ALBUMIN 2.7 g/dL (3.5-5.0); ALT/SGPT 63 U/L (21-72); AST/SGOT 112 U/L (17-59); BLOOD UREA NITROGEN 15 mg/dl (9-20); CALCIUM 7.5 mg/dL (8.4-10.2); GFR AFRICAN-AMERICAN > 60; GFR NON-AFRICAN AMERICAN > 60
[2017-10-03 21:59] LABS: INR 1.5 (0.9-1.2); PARTIAL THROMBOPLASTIN TIME 38.6 Seconds (25.6-37.1); PROTHROMBIN TIME 16.7 Seconds (9.8-13.1)
--- NOTE | 2017-10-03 22:46 | CT ---
EXAM: CT Head Without Intravenous Contrast CLINICAL HISTORY: 52 years old, male; Injury or trauma; Fall; Initial encounter; Laceration; Consciousness not specified; Without residual foreign body; Head, generalized; Injury date: Today? ; Injury details: Seizured / falling; Patient HX: ETOH abuser. Anemia dvt multiple FX; Additional info: Headache TECHNIQUE: Axial computed tomography images of the head/brain without intravenous contrast. All CT scans at this facility use one or more dose reduction techniques, viz.: automated exposure control; ma/kV adjustment per patient size (including targeted exams where dose is matched to indication; i.e. head); or iterative reconstruction technique. Coronal and sagittal reformatted images were created and reviewed. COMPARISON: CT - HEAD W/O CONTRAST 2017-09-20 20:20 FINDINGS: Brain: There is mild diffuse cerebral atrophy present, consistent with this patient's age. There is mild diffuse heterogeneity of the white matter attenuation, consistent with chronic white matter ischemic changes. No hemorrhage. Ventricles: The ventricular system demonstrates moderate diffuse compensatory enlargement. Bones/joints: Unremarkable. No acute fracture. Soft tissues: Unremarkable. Sinuses: There is diffuse mucoperiosteal thickening in the maxillary, ethmoid and sphenoid sinuses, consistent with chronic sinusitis. Mastoid air cells: Nonspecific fluid in the mastoid air cells bilaterally. IMPRESSION: Age-related atrophy and chronic white matter ischemic changes, with no evidence of an acute intracranial abnormality.
--- NOTE | 2017-10-03 23:11 | CT ---
EXAM: CT Cervical Spine Without Intravenous Contrast CLINICAL HISTORY: 52 years old, male; Injury or trauma; Fall; Initial encounter; Laceration; Without foreign body; Injury date: Today? ; Injury details: ETOH abuser. Anemia dvt multiple FX; Additional info: Neck pain TECHNIQUE: Axial computed tomography images of the cervical spine without intravenous contrast. All CT scans at this facility use one or more dose reduction techniques, viz.: automated exposure control; ma/kV adjustment per patient size (including targeted exams where dose is matched to indication; i.e. head); or iterative reconstruction technique. Coronal and sagittal reformatted images were created and reviewed. COMPARISON: No relevant prior studies available. FINDINGS: There is no evidence of acute fracture. There is no evidence of malalignment or dislocation. C2-3: No significant abnormality. C3-4 and C4-5 mild central disc bulge and facet arthropathy results in mild spinal canal stenosis and bilateral neuroforaminal narrowing. C4-5 and C5-6: Mild anterior subluxation of C4 upon C5 and C5 on C6, approximately 3 mm. C6-7: Moderate disc space narrowing, endplate spurs, uncovertebral hypertrophy and facet arthropathy resulting in mild spinal canal stenosis and moderate bilateral neuroforaminal narrowing. C7/T1: No significant abnormality. Facet arthropathy noted at multiple levels results in neural foraminal narrowing. The facet joints are intact. The pharyngeal, hypopharyngeal, and laryngeal structures are unremarkable. There is no evidence of lymphadenopathy. The visualized portions of the lung apices demonstrate mild emphysematous changes. IMPRESSION: No acute fracture. Mild C4/5 and C5/6 anterior subluxation, possibly degenerative. Clinical correlation with the level of pain is recommended. If clinically warranted, MRI of the cervical spine could be obtained. Cervical spondylosis.
--- NOTE | 2017-10-03 23:51 | ED PDOC ---
- Laboratory Results Result Diagrams: 10/03/17 20:30 10/03/17 20:30 - ECG O2 Sat by Pulse Oximetry: 99 Medical Decision Making Medical Decision Makin Patient signed out to the provider from Dr. Brown Maloney pending clinical sobriety. ~ Scribe Attestation: Documented by Fallon Calderon, acting as a scribe for Olaf Fernandez MD. Provider Scribe Attestation: All medical record entries made by the Scribe were at my direction and personally dictated by me. I have reviewed the chart and agree that the record accurately reflects my personal performance of the history, physical exam, medical decision making, and the department course for this patient. I have also personally directed, reviewed, and agree with the discharge instructions and disposition. Disposition - Clinical Impression Clinical Impression: Alcohol abuse - POA Present On Arrival: None - Disposition Disposition: Routine/Home Disposition Time: 06:00 Condition: STABLE Instructions: Alcohol Abuse and Alcoholism (DC)
[2017-10-04 02:28] VITALS: BP 100/71; PULSE 90; RESP 12
--- NOTE | 2017-10-04 07:53 | RAD ---
PROCEDURE: Radiographs of the Chest and Right Ribs. HISTORY: pain COMPARISON: Frontal chest radiograph 09/24/2017. TECHNIQUE: Frontal radiograph of the chest and multiple oblique radiographs of the right ribs were obtained. Improved inspiratory volume noted in the interval. FINDINGS: RIGHT RIBS: There is a nondisplaced distal right 10th rib fracture laterally. No additional right rib fracture is identified. LUNGS: Clear. PLEURA: No pneumothorax or pleural fluid. CARDIOVASCULAR: Normal sized heart. No pulmonary vascular congestion. OTHER FINDINGS: None. IMPRESSION: Solitary right 10th lateral rib fracture identified. No acute cardiopulmonary disease appreciable. Improved inspiratory volume noted in the interval.
--- NOTE | 2017-10-04 11:39 | CARD ---
APPROVED REPORT EKG Measurement Heart [id number] <Conclusion> Normal sinus rhythm Prolonged QT Abnormal ECG
[2017-10-05 06:04] VITALS: O2SAT 99
== END 2017-10-04 03:15 | disposition home or self-care (01) ==
LOC: H.ER 18:51
DX: G40.909 Epilepsy, unspecified, not intractable, without status epilepticus (principal); S09.90XA Unspecified injury of head, initial encounter; S22.31XA Fracture of one rib, right side, initial encounter for closed fracture; W19.XXXA Unspecified fall, initial encounter; Y92.89 Other specified places as the place of occurrence of the external cause; F10.10 Alcohol abuse, uncomplicated; D64.9 Anemia, unspecified; Z86.718 Personal history of other venous thrombosis and embolism; Z88.6 Allergy status to analgesic agent
CPT/HCPCS: 70450; 71101; 72125; 80053; 80320; 83735; 84100; 84484; 85025; 85610; 85730; 93005; 96360; 99285; J7040

== ENCOUNTER 2017-10-05 16:15 | Emergency (ER) | payer MEDICAID ==
[2017-10-05 16:15] VITALS: BMI 23.7
[2017-10-05 16:30] VITALS: RESP 18; TEMP 98.7; O2SAT 100
[2017-10-05] MEDS ORDERED: Sodium Chloride 0.9% 1,000 ML IV STA (16:49)
--- NOTE | 2017-10-05 17:16 | ED PDOC ---
HPI: Seizure Time Seen by Provider: 10/05/17 16:34 Chief Complaint (Nursing): Seizure Chief Complaint (Provider): Seizure History Per: Patient History/Exam Limitations: no limitations Associated Symptoms: denies: Bit Tongue, Incontinence Of Urine, Incontinence Of Stool Additional Complaint(s): 52yo male with history of alcoholism, seizures, presents to ED for evaluation after he had a seizure lasting 7 minutes. Patient states he was at his sister's home when he had the seizure and reports it was unwitnessed. He denies any tongue bite, urine incontinence, other injuries. Patient denies any alcohol use today as well. Patient is well known to ER and provider for multiple visits with similar complaints; patient states he is hungry and is requesting a sandwich. Patient states he is compliant with his Keppra as well. PMD: [facility] Past Medical History Reviewed: Historical Data, Nursing Documentation, Vital Signs Vital Signs: Last Vital Signs Temp 98.7 F 10/05/17 16:27 Pulse 114 H 10/05/17 16:27 Resp 18 10/05/17 16:27 BP 126/71 10/05/17 16:27 Pulse Ox 100 10/05/17 17:51 - Medical History PMH: Anemia, Back Problems (herniated disc), Deep Vein Thrombosis, Fractures ( rib fx, left shoulder, Left hand 5th digit, Humerus fracture), Gastritis, Pancreatitis, Seizures, Chronic Pain (left shoulder) Denies: Chronic Kidney Disease - Surgical History Surgical History: Endoscopy - Family History Family History: States: Unknown Family Hx - Home Medications Home Medications: Ambulatory Orders Medication Instructions Recorded levETIRAcetam [Keppra] 500 mg PO BID 10/16/16 Ondansetron [Zofran] 4 mg PO Q6H #15 tab 09/26/17 Pantoprazole [Protonix EC Tab] 40 mg PO BID 15 Days #30 ect 09/26/17 Pantoprazole Sodium [Protonix] 40 mg PO DAILY #10 ect 10/03/17 - Allergies Allergies/Adverse Reactions: Allergies Allergy/AdvReac Type Severity Reaction Status Date / Time aspirin Allergy NAUSEA Verified 10/03/17 06:55 ibuprofen [From Motrin] Allergy NAUSEA Verified 10/03/17 06:55 naproxen Allergy RASH Verified 10/03/17 06:55 NSAIDS (Non-Steroidal Allergy NAUSEA Verified 10/03/17 06:55 Anti-Inflamma Review of Systems ROS Statement: Except As Marked, All Systems Reviewed And Found Negative (as per HPI) ENT: Negative for: Other (tongue bite) Genitourinary Male: Negative for: Incontinence Neurological: Positive for: Seizures. Negative for: Other (head injury) Physical Exam - Reviewed Nursing Documentation Reviewed: Yes Vital Signs Reviewed: Yes - Physical Exam Appears: Positive for: No Acute Distress Head Exam: Positive for: ATRAUMATIC, NORMOCEPHALIC Skin: Positive for: Warm, Dry Eye Exam: Positive for: EOMI, PERRL ENT: Positive for: Pharynx Is (clear), Other (tacky mucus membranes; no tongue abrasion) Neck: Positive for: Painless ROM, Supple Cardiovascular/Chest: Positive for: Tachycardia (regular rate) Respiratory: Positive for: Normal Breath Sounds. Negative for: Wheezing Gastrointestinal/Abdominal: Positive for: Soft. Negative for: Tenderness Back: Positive for: Normal Inspection. Negative for: Vertebral Tenderness Extremity: Positive for: Normal ROM. Negative for: Deformity Neurologic/Psych: Positive for: Alert, Oriented (x3), Gait (steady), Other ( slight resting tremor). Negative for: Motor/Sensory Deficits - Laboratory Results Result Diagrams: 10/05/17 17:23 10/05/17 17:23 - ECG O2 Sat by Pulse Oximetry: 100 (RA) Pulse Ox Interpretation: Normal Medical Decision Making Medical Decision Making: Impression: Possible seizure Plan: -- Labs -- IV Fluids Labs c/w recent seizure (elevated lactic acid and CPK) Also with hypokalemia, potassium repletion ordered Anemia, but improved c/w previous. Keppra ordered for breakthrough seizure. BAL 12 c/w recent alcohol use. Pt ate in ER. Stable for dc. Scribe Attestation: Documented by Kajal Chakraborty acting as a scribe for Fatimah Morillo MD. Provider Attestation: All medical record entries made by the Scribe were at my direction and personally dictated by me. I have reviewed the chart and agree that the record accurately reflects my personal performance of the history, physical exam, medical decision making, and the department course for this patient. I have also personally directed, reviewed, and agree with the discharge instructions and disposition. Disposition - Clinical Impression Clinical Impression: EtOH dependence, Alcohol related seizure, Hypokalemia Counseled Patient/Family Regarding: Studies Performed, Diagnosis, Need For Followup, Rx Given - Disposition Disposition: Routine/Home Disposition Time: 17:55 Condition: IMPROVED Additional Instructions: DRINK PLENTY OF HYDRATING NONALCOHOLIC FLUIDS EAT AT LEAST 3 WELL BALANCED MEALS A DAY TAKE ALL YOUR MEDICATIONS PRESCRIBED. FOLLOW UP AT CLINIC THIS WEEK Instructions: Alcohol Abuse and Alcoholism (DC), Seizures, Adult (DC), Hypokalemia Forms: [employer] [facility] (Bulgarian)
[2017-10-05 17:28] LABS: BASO # 0.1 K/uL (0.0-0.2); BASO % 0.9 % (0.0-2.0); EOS # 0.4 K/uL (0.0-0.7); EOS % 6.6 % (0.0-4.0); HEMOGLOBIN 8.8 g/dL (12.0-18.0); LYMPH # 0.7 K/uL (1.0-4.3); LYMPH % 11.2 % (20.0-40.0); MEAN CELL VOLUME 92.2 fl (80.0-94.0); MEAN CORPUSCULAR HEMOGLOBIN 29.8 pg (27.0-31.0); MEAN CORPUSCULAR HGB CONC 32.3 g/dL (33.0-37.0); MEAN PLATELET VOLUME 7.5 fl (7.2-11.7); MONO # 0.7 K/uL (0.0-0.8); MONO % 10.9 % (0.0-10.0); NEUT # 4.2 K/uL (1.8-7.0); NEUT % 70.4 % (50.0-75.0); RBC 2.94 Mil/uL (4.40-5.90); RED CELL DISTRIBUTION WIDTH 18.9 % (11.5-14.5)
[2017-10-05 17:41] LABS: ALB/GLOB RATIO 0.7 (1.0-2.1); ALBUMIN 3.2 g/dL (3.5-5.0); ALT/SGPT 63 U/L (21-72); AST/SGOT 101 U/L (17-59); BLOOD UREA NITROGEN 12 mg/dl (9-20); CALCIUM 8.4 mg/dL (8.4-10.2); GFR AFRICAN-AMERICAN > 60; GFR NON-AFRICAN AMERICAN > 60
[2017-10-05] MEDS ORDERED: Potassium Chloride 20 mEq ER Tab PO STA (17:49)
[2017-10-05] MEDS ORDERED: Potassium Chloride 20 mEq ER Tab PO ONE (18:14)
[2017-10-05 18:54] VITALS: BP 122/78; PULSE 92
== END 2017-10-05 18:53 | disposition home or self-care (01) ==
LOC: H.ER 16:15
DX: G40.909 Epilepsy, unspecified, not intractable, without status epilepticus (principal); F10.20 Alcohol dependence, uncomplicated; G89.29 Other chronic pain; E87.6 Hypokalemia; D64.9 Anemia, unspecified; K85.90 Acute pancreatitis without necrosis or infection, unspecified; Z86.718 Personal history of other venous thrombosis and embolism; Z88.6 Allergy status to analgesic agent
CPT/HCPCS: 80053; 80299; 80320; 82550; 82948; 83605; 83735; 84100; 85025; 99283; J7040

== ENCOUNTER 2017-10-06 01:55 | Emergency (ER) | payer MEDICAID ==
[2017-10-06 01:55] VITALS: BMI 23.7
[2017-10-06 02:09] VITALS: RESP 16
--- NOTE | 2017-10-06 02:26 | ED PDOC ---
HPI: Seizure Time Seen by Provider: 10/06/17 02:04 Chief Complaint (Nursing): Seizure Chief Complaint (Provider): Seizure History Per: Patient History/Exam Limitations: no limitations Recent Seizure Activity Began: Just Before Arrival Number Of Seizures: One Length Of Seizures (Duration): Unknown Associated Symptoms: Bit Tongue Additional Complaint(s): 52 year old male, well-known to provider for multiple visits, presents to the emergency department for an evaluation of a witnessed seizure with tongue bite while at the homeless correction prior to arrival. Patient ambulated to ED without difficulty. He was recently discharged from ED a few hours ago for similar seizure activity. PMD: none provided Past Medical History Reviewed: Historical Data, Nursing Documentation, Vital Signs Vital Signs: Last Vital Signs Temp 98.2 F 10/06/17 02:06 Pulse 114 H 10/06/17 02:06 Resp 16 10/06/17 02:06 BP 138/76 10/06/17 02:06 Pulse Ox 100 10/06/17 02:38 - Medical History PMH: Anemia, Back Problems (herniated disc), Deep Vein Thrombosis, Fractures ( rib fx, left shoulder, Left hand 5th digit, Humerus fracture), Gastritis, Pancreatitis, Seizures, Chronic Pain (left shoulder) Denies: Chronic Kidney Disease - Surgical History Surgical History: Endoscopy - Family History Family History: States: Unknown Family Hx - Social History Current smoker - smoking cessation education provided: Yes Alcohol: Occasional Drugs: Denies - Home Medications Home Medications: Ambulatory Orders Medication Instructions Recorded levETIRAcetam [Keppra] 500 mg PO BID 10/16/16 Ondansetron [Zofran] 4 mg PO Q6H #15 tab 09/26/17 Pantoprazole [Protonix EC Tab] 40 mg PO BID 15 Days #30 ect 09/26/17 Pantoprazole Sodium [Protonix] 40 mg PO DAILY #10 ect 10/03/17 - Allergies Allergies/Adverse Reactions: Allergies Allergy/AdvReac Type Severity Reaction Status Date / Time aspirin Allergy NAUSEA Verified 10/03/17 06:55 ibuprofen [From Motrin] Allergy NAUSEA Verified 10/03/17 06:55 naproxen Allergy RASH Verified 10/03/17 06:55 NSAIDS (Non-Steroidal Allergy NAUSEA Verified 10/03/17 06:55 Anti-Inflamma Review of Systems ROS Statement: Except As Marked, All Systems Reviewed And Found Negative Neurological: Positive for: Seizures (bit tongue) Physical Exam - Reviewed Nursing Documentation Reviewed: Yes Vital Signs Reviewed: Yes - Physical Exam Appears: Positive for: Non-toxic, No Acute Distress Head Exam: Positive for: ATRAUMATIC, NORMAL INSPECTION, NORMOCEPHALIC Skin: Positive for: Normal Color Eye Exam: Positive for: Normal appearance, EOMI, PERRL ENT: Positive for: Other (superficial tongue laceration - noted on previous seizure) Neck: Positive for: Normal Cardiovascular/Chest: Positive for: Regular Rate, Rhythm, Chest Non Tender Respiratory: Positive for: Normal Breath Sounds. Negative for: Decreased Breath Sounds, Respiratory Distress Gastrointestinal/Abdominal: Positive for: Normal Exam, Soft. Negative for: Tenderness Extremity: Positive for: Normal ROM (upper/lower). Negative for: Deformity ( upper/lower) Neurologic/Psych: Positive for: Alert (x3), Oriented, Gait (steady), Other ( fluent speech). Negative for: Motor/Sensory Deficits - Laboratory Results Result Diagrams: 10/06/17 02:35 10/06/17 02:35 - ECG O2 Sat by Pulse Oximetry: 100 (RA) Pulse Ox Interpretation: Normal Medical Decision Making Medical Decision Making: Initial Impression: 52 y/o male with hx of seizures Initial Plan: * Alcohol serum * CMP * Urine dipstick * CBC * Accucheck * UA Time: 0300 --Labs: baseline anemia noted, but otherwise, no significant abnormalities. --Upon provider reevaluation, patient is medically stable and requires no further treatment in the ED at this time. Patient will be discharged home. Counseling was provided and all questions were answered regarding diagnosis and need for follow up with neurologist. Patient states that he has a pending appointment on 10/11/[address] Kaur. There is agreement to discharge plan. Return if symptoms persist or worsen. Clinical Impression: Recurrent seizure Scribe Attestation: Documented by Dulce Hoffmann, acting as a scribe for Olaf Fernandez MD. Provider Scribe Attestation: All medical record entries made by the Scribe were at my direction and personally dictated by me. I have reviewed the chart and agree that the record accurately reflects my personal performance of the history, physical exam, medical decision making, and the department course for this patient. I have also personally directed, reviewed, and agree with the discharge instructions and disposition. Disposition - Clinical Impression Clinical Impression: Recurrent seizures - Patient ED Disposition Is Patient to be Admitted: No Counseled Patient/Family Regarding: Studies Performed, Diagnosis, Need For Followup - Disposition Referrals: French Kaur MD [Staff Provider] - Disposition: Routine/Home Disposition Time: 03:00 Condition: STABLE Instructions: Seizures, Adult (DC) Forms: [employer] (Tajik)
[2017-10-06 02:40] LABS: BASO % 0.8 % (0.0-2.0); EOS # 0.4 K/uL (0.0-0.7); EOS % 7.9 % (0.0-4.0); HEMOGLOBIN 7.5 g/dL (12.0-18.0); LYMPH # 0.4 K/uL (1.0-4.3); LYMPH % 7.9 % (20.0-40.0); MEAN CELL VOLUME 92.3 fl (80.0-94.0); MEAN CORPUSCULAR HEMOGLOBIN 29.4 pg (27.0-31.0); MEAN CORPUSCULAR HGB CONC 31.9 g/dL (33.0-37.0); MEAN PLATELET VOLUME 7.6 fl (7.2-11.7); MONO # 0.5 K/uL (0.0-0.8); NEUT % 74.4 % (50.0-75.0); PLATELET COUNT 75 K/uL (130-400); RBC 2.57 Mil/uL (4.40-5.90); RED CELL DISTRIBUTION WIDTH 19.3 % (11.5-14.5); WHITE BLOOD COUNT 5.4 K/uL (4.8-10.8)
[2017-10-06 02:54] LABS: ALB/GLOB RATIO 0.7 (1.0-2.1); ALBUMIN 3.1 g/dL (3.5-5.0); ALT/SGPT 58 U/L (21-72); AST/SGOT 110 U/L (17-59); BLOOD UREA NITROGEN 18 mg/dl (9-20); CALCIUM 8.7 mg/dL (8.4-10.2); GFR AFRICAN-AMERICAN > 60; GFR NON-AFRICAN AMERICAN > 60
[2017-10-06 04:18] LABS: ANISOCYTOSIS SLIGHT; BANDS 2 % (0-2); BASOPHIL 1 % (0-2); EOSINOPHIL 3 % (0-7); LYMPHOCYTE 5 % (20-50); MONOCYTE 10 % (0-10); NEUTROPHIL 79 % (42-75); PLATELET ESTIMATE DECREASED (NORMAL); TEARDROP CELLS SLIGHT; TOTAL CELLS COUNTED 100; TOXIC GRANULATION PRESENT
[2017-10-06 04:19] LABS: HYPOCHROMIC SLIGHT
[2017-10-06 05:48] VITALS: BP 126/78; PULSE 71; TEMP 98; O2SAT 99
== END 2017-10-06 05:56 | disposition home or self-care (01) ==
LOC: H.ER 01:55
DX: G40.909 Epilepsy, unspecified, not intractable, without status epilepticus (principal); Z88.6 Allergy status to analgesic agent; Z86.718 Personal history of other venous thrombosis and embolism; G89.29 Other chronic pain

== ENCOUNTER 2017-10-07 05:51 | Emergency (ER) | payer MEDICAID ==
[2017-10-07 05:52] VITALS: BMI 23.7
[2017-10-07 06:02] VITALS: BP 112/72; RESP 17; TEMP 98; O2SAT 99
--- NOTE | 2017-10-07 06:03 | ED PDOC ---
HPI: Seizure Time Seen by Provider: 10/07/17 05:58 Chief Complaint (Nursing): Seizure Chief Complaint (Provider): Seizure History Per: Patient History/Exam Limitations: no limitations Recent Seizure Activity Began: Just Before Arrival Number Of Seizures: One Length Of Seizures (Duration): Unknown Additional Complaint(s): 52 year old male, well known to ED and provider, was brought in via EMS for evaluation of a self reported seizure minutes prior to arrival. He has a history of bed seeking behavior. Patient was seen 24 hours ago in this ED for an identical complaint with no evidence of seizure activity. PMD: none provided Past Medical History Reviewed: Historical Data, Nursing Documentation, Vital Signs Vital Signs: Last Vital Signs Temp 98.0 F 10/07/17 05:53 Pulse 112 H 10/07/17 05:53 Resp 17 10/07/17 05:53 BP 112/72 10/07/17 05:53 Pulse Ox 99 10/07/17 05:53 - Medical History PMH: Anemia, Back Problems (herniated disc), Deep Vein Thrombosis, Fractures ( rib fx, left shoulder, Left hand 5th digit, Humerus fracture), Gastritis, Pancreatitis, Seizures, Chronic Pain (left shoulder) Denies: Chronic Kidney Disease - Surgical History Surgical History: Endoscopy - Family History Family History: States: Unknown Family Hx - Home Medications Home Medications: Ambulatory Orders Medication Instructions Recorded levETIRAcetam [Keppra] 500 mg PO BID 10/16/16 Ondansetron [Zofran] 4 mg PO Q6H #15 tab 09/26/17 Pantoprazole [Protonix EC Tab] 40 mg PO BID 15 Days #30 ect 09/26/17 Pantoprazole Sodium [Protonix] 40 mg PO DAILY #10 ect 10/03/17 - Allergies Allergies/Adverse Reactions: Allergies Allergy/AdvReac Type Severity Reaction Status Date / Time aspirin Allergy NAUSEA Verified 10/03/17 06:55 ibuprofen [From Motrin] Allergy NAUSEA Verified 10/03/17 06:55 naproxen Allergy RASH Verified 10/03/17 06:55 NSAIDS (Non-Steroidal Allergy NAUSEA Verified 10/03/17 06:55 Anti-Inflamma Review of Systems ROS Statement: Except As Marked, All Systems Reviewed And Found Negative Physical Exam - Reviewed Nursing Documentation Reviewed: Yes Vital Signs Reviewed: Yes - Physical Exam Appears: Positive for: Non-toxic, No Acute Distress Head Exam: Positive for: ATRAUMATIC, NORMOCEPHALIC Skin: Positive for: Normal Color, Warm, Dry Eye Exam: Positive for: EOMI, Normal appearance, PERRL Neck: Positive for: Normal, Painless ROM, Supple Cardiovascular/Chest: Positive for: Regular Rate, Rhythm. Negative for: Murmur Respiratory: Positive for: Normal Breath Sounds. Negative for: Respiratory Distress Gastrointestinal/Abdominal: Positive for: Normal Exam, Soft Extremity: Positive for: Normal ROM. Negative for: Deformity Neurologic/Psych: Positive for: Alert, Oriented (x 3), Motor/Sensory Deficits Medical Decision Making Medical Decision Making: Time: 06:02 --Keppra 500 mg PO There is no evidence of seizure activity. Patient is stable for discharge. Diagnosis is malingering disorder. ---- Scribe Attestation: Documented by Gloria Moran, acting as a scribe for Olaf Fernandez MD Provider Scribe Attestation: All medical record entries made by the Scribe were at my direction and personally dictated by me. I have reviewed the chart and agree that the record accurately reflects my personal performance of the history, physical exam, medical decision making, and the department course for this patient. I have also personally directed, reviewed, and agree with the discharge instructions and disposition. Disposition - Clinical Impression Clinical Impression: Seizures, Malingering - Patient ED Disposition Is Patient to be Admitted: No - Disposition Disposition: Routine/Home Disposition Time: 06:06 Condition: STABLE Instructions: Seizures Forms: [employer] (Vietnamese)
[2017-10-07 06:19] VITALS: PULSE 91
== END 2017-10-07 06:19 | disposition home or self-care (01) ==
LOC: H.ER 05:51
DX: Z76.5 Malingerer [conscious simulation] (principal)

== ENCOUNTER 2017-10-09 09:53 | Emergency (ER) | payer MEDICAID ==
[2017-10-09 09:53] VITALS: BMI 23.7
--- NOTE | 2017-10-09 11:44 | ED PDOC ---
HPI: Trauma/Fall - HPI Time Seen by Provider: 10/09/17 10:20 Chief Complaint (Nursing): Trauma Chief Complaint (Provider): Trauma History Per: Patient History/Exam Limitations: no limitations Onset/Duration Of Symptoms: Days (x2) Additional Complaint(s): Patient reports right-sided rib pain status post trip and fall injury 2 days ago. Otherwise: (-) head injury or LOC, (-) neck or back pain (-) upper or lower extremity injuries, (-) abdominal pain. States rib pain is worse with movement. Past Medical History Reviewed: Historical Data, Nursing Documentation, Vital Signs - Medical History PMH: Anemia, Back Problems (herniated disc), Deep Vein Thrombosis, Fractures ( rib fx, left shoulder, Left hand 5th digit, Humerus fracture), Gastritis, Pancreatitis, Seizures, Chronic Pain (left shoulder) Denies: Chronic Kidney Disease - Surgical History Surgical History: Endoscopy - Family History Family History: States: Unknown Family Hx - Social History Current smoker - smoking cessation education provided: Yes Alcohol: Occasional Drugs: Denies - Home Medications Home Medications: Ambulatory Orders Medication Instructions Recorded levETIRAcetam [Keppra] 500 mg PO BID 10/16/16 Ondansetron [Zofran] 4 mg PO Q6H #15 tab 09/26/17 Pantoprazole [Protonix EC Tab] 40 mg PO BID 15 Days #30 ect 09/26/17 Pantoprazole Sodium [Protonix] 40 mg PO DAILY #10 ect 10/03/17 - Allergies Allergies/Adverse Reactions: Allergies Allergy/AdvReac Type Severity Reaction Status Date / Time aspirin Allergy NAUSEA Verified 10/03/17 06:55 ibuprofen [From Motrin] Allergy NAUSEA Verified 10/03/17 06:55 naproxen Allergy RASH Verified 10/03/17 06:55 NSAIDS (Non-Steroidal Allergy NAUSEA Verified 10/03/17 06:55 Anti-Inflamma Review of Systems ROS Statement: Except As Marked, All Systems Reviewed And Found Negative Cardiovascular: Positive for: Other (right-sided rib) Gastrointestinal: Negative for: Abdominal Pain Musculoskeletal: Negative for: Neck Pain, Arm Pain, Back Pain, Leg Pain Neurological: Negative for: Headache (head injury), Other (LOC) Physical Exam - Reviewed Nursing Documentation Reviewed: Yes Vital Signs Reviewed: Yes - Physical Exam Comments: GENERAL APPEARANCE: Patient is awake, alert, oriented x 3, comfortable but in mild painful distress. SKIN: Warm, dry; (-) cyanosis. EYES: (-) conjunctival pallor. ENMT: Mucous membranes moist. NECK: (-) tenderness, (-) stiffness, (-) lymphadenopathy, (-) JVD. CHEST AND RESPIRATORY: (+) point tenderness on right lateral rib, (-) ecchymosis, (-) step offs, (-) rash. LUNGS: (-) rales, (-) rhonchi, (-) wheezes, (-) rub; breath sounds equal bilaterally. HEART AND CARDIOVASCULAR: (-) irregularity; (-) murmur, (-) gallop, (-) rub. ABDOMEN AND GI: Soft; (-) distention, (-) tenderness, (-) palpable pulsatile mass. EXTREMITIES: (-) deformity; (-) edema, (-) calf tenderness. (+) distal pulses. NEURO AND PSYCH: Mental status as above. Cranial nerves grossly intact; strength symmetric Medical Decision Making Medical Decision Making: Initial Impression: Rib injury S/P fall, r/o rib fracture Initial Plan: * Tylenol 975mg PO * Xray ribs Time: 1143 --XR R ribs: (+) fracture to the 9th and 10th rib, (-) pneumothorax, as read by STEPHAN. Time: 1145 --XR results d/w the patient. On re-evaluation, patient is laying in bed comfortably asking for a sandwich. --Advised to follow up with primary care physician or the clinic in 1-2 days without fail. Advised to take otc tylenol fo rpain. Return to the emergency room at any time for any new or worsening symptoms. --Patient states he fully agrees with and understands discharge instructions. States that he agrees with the plan and disposition. Verbalized and repeated discharge instructions and plan. I have given the patient opportunity to ask any additional questions. Clinical Impression: Rib fracture Scribe Attestation: Documented by Dulce Hoffmann, acting as a scribe for Margie Engel PA-C. Provider Scribe Attestation: All medical record entries made by the Scribe were at my direction and personally dictated by me. I have reviewed the chart and agree that the record accurately reflects my personal performance of the history, physical exam, medical decision making, and the department course for this patient. I have also personally directed, reviewed, and agree with the discharge instructions and disposition. Disposition - Clinical Impression Clinical Impression: Rib fracture - Patient ED Disposition Is Patient to be Admitted: No Counseled Patient/Family Regarding: Studies Performed, Diagnosis, Need For Followup - Disposition Disposition: Routine/Home Disposition Time: 11:45 Condition: STABLE Additional Instructions: Thank you for letting us take care of you today. You were treated for rib fracture. The emergency medical care you received today was directed at your acute symptoms. Take tylenol for pain. It may take several days for your symptoms to resolve. Return to the Emergency Department if your symptoms worsen , do not improve, or if you have any other problems. Please contact your doctor in 2 days for re-evaluation and follow up. Bring any paperwork you were given at discharge with you along with any medications you are taking to your follow up visit. Our treatment cannot replace ongoing medical care by a primary care provider (PCP) outside of the emergency department. Thank you for allowing the [facility] team to be part of your care today. If you had an X-Ray : A Radiologist will review the ED reading if any change in treatment is needed we will contact you. Instructions: Rib Fractures in Adults Forms: [employer] (Urdu)
--- NOTE | 2017-10-09 11:48 | RAD ---
PROCEDURE: Radiographs of the Chest and Right Ribs. HISTORY: pain COMPARISON: Right rib radiographs dated 10/03/2017. TECHNIQUE: Frontal radiograph of the chest and multiple oblique radiographs of the right ribs were obtained. FINDINGS: RIGHT RIBS: Nondisplaced fractures of the right lateral 9 to 11th ribs. LUNGS: Clear. PLEURA: No pneumothorax or pleural fluid. CARDIOVASCULAR: Normal sized heart. No pulmonary vascular congestion. OTHER FINDINGS: None. IMPRESSION: Nondisplaced fractures of the right lateral 9 to 11th ribs.
[2017-10-09 12:28] VITALS: BP 136/68; PULSE 77; RESP 18; TEMP 98; O2SAT 99
== END 2017-10-09 11:50 | disposition home or self-care (01) ==
LOC: H.ER 09:53
DX: S22.31XA Fracture of one rib, right side, initial encounter for closed fracture (principal); W01.0XXA Fall on same level from slipping, tripping and stumbling without subsequent striking against object, initial encounter; Y92.89 Other specified places as the place of occurrence of the external cause; G89.29 Other chronic pain; Z86.718 Personal history of other venous thrombosis and embolism; Z88.6 Allergy status to analgesic agent

== ENCOUNTER 2017-10-12 17:26 | Emergency (ER) | payer MEDICAID ==
[2017-10-12 17:26] VITALS: BMI 23.7
[2017-10-12 17:29] VITALS: O2SAT 100
[2017-10-12] MEDS ORDERED: Multivitamin (MVI) 10 ML, Thiamine 100 MG, Folic Acid 1 MG in Dextrose 5%/0.45% NS 1,00... IV ONE (17:38)
--- NOTE | 2017-10-12 17:53 | ED PDOC ---
HPI: Psych/Substance Abuse Time Seen by Provider: 10/12/17 17:33 Chief Complaint (Nursing): Alcohol Ingestion Chief Complaint (Provider): Alcohol Ingestion History Per: Patient, EMS History/Exam Limitations: no limitations Onset/Duration Of Symptoms: Hrs Current Symptoms Are (Timing): Still Present Suicide/Self Injury Attempted (Context): None Modifying Factor(s): Alcohol Additional Complaint(s): 52 year old male with a past medical history of anemia, herniated disc, pancreatitis, DVT, Seizures, Gastritis, multiple fractures, and chronic left shoulder pain was brought by EMS after being found sitting in a residential as usual and appeared to be intoxicated by crew. Patient denies drinking alcohol. However, patient is known to emergency room staff and personally from multiple visits for alcohol intoxication. Additionally, patient reports of generalized weakness. Otherwise, patient states no other complaints. PMD: [facility] Past Medical History Reviewed: Historical Data, Nursing Documentation, Vital Signs Vital Signs: Last Vital Signs Temp 97.5 F L 10/12/17 17:27 Pulse 105 H 10/12/17 17:27 Resp 16 10/12/17 17:27 BP 130/80 10/12/17 17:27 Pulse Ox 100 10/12/17 17:27 - Medical History PMH: Anemia, Back Problems (herniated disc), Deep Vein Thrombosis, Fractures ( rib fx, left shoulder, Left hand 5th digit, Humerus fracture), Gastritis, Pancreatitis, Seizures, Chronic Pain (left shoulder) Denies: Chronic Kidney Disease - Surgical History Surgical History: Endoscopy - Family History Family History: States: Unknown Family Hx - Social History Current smoker - smoking cessation education provided: Yes Alcohol: > 2 Drinks/Day - Home Medications Home Medications: Ambulatory Orders Medication Instructions Recorded levETIRAcetam [Keppra] 500 mg PO BID 10/16/16 Ondansetron [Zofran] 4 mg PO Q6H #15 tab 09/26/17 Pantoprazole [Protonix EC Tab] 40 mg PO BID 15 Days #30 ect 09/26/17 Pantoprazole Sodium [Protonix] 40 mg PO DAILY #10 ect 10/03/17 - Allergies Allergies/Adverse Reactions: Allergies Allergy/AdvReac Type Severity Reaction Status Date / Time aspirin Allergy NAUSEA Verified 10/03/17 06:55 ibuprofen [From Motrin] Allergy NAUSEA Verified 10/03/17 06:55 naproxen Allergy RASH Verified 10/03/17 06:55 NSAIDS (Non-Steroidal Allergy NAUSEA Verified 10/03/17 06:55 Anti-Inflamma Review of Systems ROS Statement: Except As Marked, All Systems Reviewed And Found Negative Constitutional: Positive for: Weakness (generalized ) Psych: Positive for: Other (EtOH Intoxication) Physical Exam - Reviewed Nursing Documentation Reviewed: Yes Vital Signs Reviewed: Yes - Physical Exam Appears: Positive for: No Acute Distress (Patient appears disheveled. ) Head Exam: Positive for: ATRAUMATIC, NORMOCEPHALIC Skin: Positive for: Normal Color, Warm, Dry Eye Exam: Positive for: EOMI, Normal appearance, PERRL Neck: Positive for: Normal, Painless ROM, Supple Cardiovascular/Chest: Positive for: Regular Rate, Rhythm. Negative for: Murmur Respiratory: Positive for: Normal Breath Sounds. Negative for: Respiratory Distress Gastrointestinal/Abdominal: Positive for: Normal Exam, Soft. Negative for: Tenderness Back: Positive for: Normal Inspection. Negative for: L CVA Tenderness, R CVA Tenderness, Vertebral Tenderness Extremity: Positive for: Normal ROM. Negative for: Pedal Edema, Deformity Neurologic/Psych: Positive for: Alert, Oriented, Gait (unsteady ), Other ( Speech is slurred) - Laboratory Results Result Diagrams: 10/12/17 18:00 - ECG O2 Sat by Pulse Oximetry: 100 (RA) Pulse Ox Interpretation: Normal Medical Decision Making Medical Decision Making: Time: 1800 Impression: Substance Abuse, EtOH Intoxication Plan: -- Alcohol Serum -- BMP -- Urine Drug Screen -- Magnesium -- CBC with differentials -- Accucheck [Glucose, Blood, POC] -- Dextrose 5% 1000 ml Scribe Attestation: Documented by Tutu Butler, acting as a scribe for Dr. Cathy Salazar. Provider Scribe Attestation: All medical record entries made by the Scribe were at my direction and personally dictated by me. I have reviewed the chart and agree that the record accurately reflects my personal performance of the history, physical exam, medical decision making, and the department course for this patient. I have also personally directed, reviewed, and agree with the discharge instructions and disposition. Disposition - Clinical Impression Clinical Impression: Alcohol abuse with intoxication - Patient ED Disposition Is Patient to be Admitted: Transfer of Care Counseled Patient/Family Regarding: Studies Performed, Diagnosis - Disposition Disposition: Transfer of Care Disposition Time: 19:00 Condition: STABLE Patient Signed Over To: Murphy Chiu
[2017-10-12 18:03] LABS: BASO # 0.1 K/uL (0.0-0.2); BASO % 0.9 % (0.0-2.0); EOS # 0.6 K/uL (0.0-0.7); EOS % 10.3 % (0.0-4.0); HEMOGLOBIN 8.7 g/dL (12.0-18.0); LYMPH # 1.1 K/uL (1.0-4.3); LYMPH % 18.6 % (20.0-40.0); MEAN CELL VOLUME 90.4 fl (80.0-94.0); MEAN CORPUSCULAR HEMOGLOBIN 28.4 pg (27.0-31.0); MEAN CORPUSCULAR HGB CONC 31.4 g/dL (33.0-37.0); MEAN PLATELET VOLUME 7.8 fl (7.2-11.7); MONO # 0.9 K/uL (0.0-0.8); MONO % 14.9 % (0.0-10.0); NEUT # 3.2 K/uL (1.8-7.0); NEUT % 55.3 % (50.0-75.0); RBC 3.07 Mil/uL (4.40-5.90); RED CELL DISTRIBUTION WIDTH 19.3 % (11.5-14.5); WHITE BLOOD COUNT 5.7 K/uL (4.8-10.8)
[2017-10-12 19:00] LABS: BLOOD UREA NITROGEN 9 mg/dl (9-20); CALCIUM 8.2 mg/dL (8.4-10.2); GFR AFRICAN-AMERICAN > 60; GFR NON-AFRICAN AMERICAN > 60
[2017-10-12 21:15] LABS: BARBITURATES, UR NEGATIVE (NEGATIVE); BENZODIAZEPINES, UR NEGATIVE (NEGATIVE); OPIATES, UR NEGATIVE (NEGATIVE); PHENCYCLIDINE, UR NEGATIVE (NEGATIVE)
--- NOTE | 2017-10-12 21:38 | ED PDOC ---
- Laboratory Results Result Diagrams: 10/12/17 18:00 10/12/17 18:00 - ECG O2 Sat by Pulse Oximetry: 100 (RA) Pulse Ox Interpretation: Normal Medical Decision Making Medical Decision MakinPM Patient was endorsed to me by Dr. Salazar pending re-eval 8PM Patent awake, asking for sandwiches, drinks from nurses 9PM Patient requesting keppra, states he does not have his PM dose. Will provide one time dose in ER, patient currently awake, clinically sober, stable gait, stable for discharge. Labwork is within patient's normal range. Disposition - Clinical Impression Clinical Impression: Alcohol abuse with intoxication - POA Present On Arrival: None - Disposition Referrals: [facility] [Outside] Alcoholics Anonymous [Outside] Disposition: Routine/Home Disposition Time: 21:38 Condition: IMPROVED Instructions: Alcohol Abuse and Alcoholism (DC)
[2017-10-12 21:59] VITALS: BP 127/64; PULSE 78; RESP 18; TEMP 98
== END 2017-10-12 22:21 | disposition home or self-care (01) ==
LOC: H.ER 17:26
DX: F10.129 Alcohol abuse with intoxication, unspecified (principal); D64.9 Anemia, unspecified
CPT/HCPCS: 80048; 80320; 80324; 80345; 80346; 80349; 80353; 80358; 80361; 83735; 83992; 85025; 96374; 99283; J3411; J7042

== ENCOUNTER 2017-10-13 00:12 | Emergency (ER) | payer MEDICAID ==
[2017-10-13 00:12] VITALS: BMI 23.7
[2017-10-13 00:21] VITALS: BP 123/69; PULSE 99; RESP 16; TEMP 98.3; O2SAT 97
--- NOTE | 2017-10-13 00:44 | ED PDOC ---
HPI: Seizure Time Seen by Provider: 10/13/17 00:17 Chief Complaint (Nursing): Seizure Chief Complaint (Provider): Seizure History Per: Patient History/Exam Limitations: no limitations Additional Complaint(s): Shreyas is a 52 y/o male with a history of seizure disorder on Kepra and alcohol abuse, returning to the ER for seizure-like activity. Upon discharge from ER earlier today, patient states he went to his girlfriend's house. While in the street he says he had a seizure. Denies tongue biting, loss of urine or stool. Currently states that he feels shaky. Of note, patient had elevated alcohol level on prior visit today. PMD: Dr. Guerin Past Medical History Reviewed: Historical Data, Nursing Documentation, Vital Signs Vital Signs: Last Vital Signs Temp 98.3 F 10/13/17 00:13 Pulse 99 H 10/13/17 00:13 Resp 16 10/13/17 00:13 BP 123/69 10/13/17 00:13 Pulse Ox 97 10/13/17 00:48 - Medical History PMH: Anemia, Back Problems (herniated disc), Deep Vein Thrombosis, Fractures ( rib fx, left shoulder, Left hand 5th digit, Humerus fracture), Gastritis, Pancreatitis, Seizures, Chronic Pain (left shoulder) Denies: Chronic Kidney Disease - Surgical History Surgical History: Endoscopy - Family History Family History: States: Unknown Family Hx - Social History Alcohol: > 2 Drinks/Day - Home Medications Home Medications: Ambulatory Orders Medication Instructions Recorded levETIRAcetam [Keppra] 500 mg PO BID 10/16/16 Ondansetron [Zofran] 4 mg PO Q6H #15 tab 09/26/17 Pantoprazole [Protonix EC Tab] 40 mg PO BID 15 Days #30 ect 09/26/17 Pantoprazole Sodium [Protonix] 40 mg PO DAILY #10 ect 10/03/17 - Allergies Allergies/Adverse Reactions: Allergies Allergy/AdvReac Type Severity Reaction Status Date / Time aspirin Allergy NAUSEA Verified 10/03/17 06:55 ibuprofen [From Motrin] Allergy NAUSEA Verified 10/03/17 06:55 naproxen Allergy RASH Verified 10/03/17 06:55 NSAIDS (Non-Steroidal Allergy NAUSEA Verified 10/03/17 06:55 Anti-Inflamma Review of Systems ROS Statement: Except As Marked, All Systems Reviewed And Found Negative Neurological: Positive for: Seizures Physical Exam - Reviewed Nursing Documentation Reviewed: Yes Vital Signs Reviewed: Yes - Physical Exam Appears: Positive for: Well, Non-toxic, No Acute Distress Skin: Positive for: Normal Color, Warm, Dry Eye Exam: Positive for: Normal appearance Neck: Positive for: Normal, Painless ROM, Supple Cardiovascular/Chest: Positive for: Regular Rate, Rhythm. Negative for: Murmur Respiratory: Positive for: Normal Breath Sounds. Negative for: Wheezing Neurologic/Psych: Positive for: Alert, Oriented. Negative for: Motor/Sensory Deficits - ECG O2 Sat by Pulse Oximetry: 97 (RA) Pulse Ox Interpretation: Normal Medical Decision Making Medical Decision Making: Time: 00:29 A/P history of seizure disorder, alcohol abuse presenting with seizure --Patient has no neurological deficit, no sequelae of post-ictal period. Questionable whether patient had seizure or not. --Currently patient appears very well, alert and orientedx3, normal vitals --Will give Librium to avoid alcohol withdrawal and monitor for any seizure- like activities 530 -Patient has had no seizure activity in ER, will be discharged. Well appearing , steady gait, normal vitals, no neuro deficit. Scribe Attestation: Documented by Neal Edouard, acting as a scribe for Murphy Chiu MD Provider Scribe Attestation: All medical record entries made by the Scribe were at my direction and personally dictated by me. I have reviewed the chart and agree that the record accurately reflects my personal performance of the history, physical exam, medical decision making, and the department course for this patient. I have also personally directed, reviewed, and agree with the discharge instructions and disposition. Disposition - Clinical Impression Clinical Impression: Seizure - Patient ED Disposition Is Patient to be Admitted: No - Disposition Referrals: Cady Son MD [Family Provider] - Disposition: Routine/Home Disposition Time: 05:37 Condition: GOOD Instructions: Seizures Forms: [employer] (French)
== END 2017-10-13 06:20 | disposition home or self-care (01) ==
LOC: H.ER 00:12
DX: G40.909 Epilepsy, unspecified, not intractable, without status epilepticus (principal); G89.29 Other chronic pain; K85.90 Acute pancreatitis without necrosis or infection, unspecified; Z86.718 Personal history of other venous thrombosis and embolism; Z88.6 Allergy status to analgesic agent; R73.09 Other abnormal glucose

== ENCOUNTER 2017-10-13 07:50 | Emergency (ER) | payer MEDICAID ==
[2017-10-13 07:50] VITALS: BMI 23.7
[2017-10-13 07:57] VITALS: RESP 16; TEMP 98.2; O2SAT 98
--- NOTE | 2017-10-13 10:00 | ED PDOC ---
Lower Extremity Pain/Injury Time Seen by Provider: 10/13/17 09:07 Chief Complaint (Nursing): Lower Extremity Problem/Injury Chief Complaint (Provider): Left foot pain History Per: Patient History/Exam Limitations: no limitations Onset/Duration Of Symptoms: Days (x3) Current Symptoms Are (Timing): Still Present Additional Complaint(s): Shreyas Sepulveda is a 52 year old male, with a past medical history of seizures, who presents to the emergency department complaining of left foot pain onset for x3 days. Patient reports pain is localized to the bottom of the foot and states pain worsen after he walked with wet socks due to a hole in his shoe. Patient also reports he was seen last night in the ED for seizure-like activity and was discharged this morning. He did not take any medication for pain, but has been taking Keppra for his seizure disorder. He denies any other medical complaints. PMD: None provided. Past Medical History Reviewed: Historical Data, Nursing Documentation, Vital Signs Vital Signs: Last Vital Signs Temp 98.2 F 10/13/17 07:56 Pulse 111 H 10/13/17 07:56 Resp 16 10/13/17 07:56 BP 132/74 10/13/17 07:56 Pulse Ox 98 10/13/17 07:56 - Medical History PMH: Anemia, Back Problems (herniated disc), Deep Vein Thrombosis, Fractures ( rib fx, left shoulder, Left hand 5th digit, Humerus fracture), Gastritis, Pancreatitis, Seizures, Chronic Pain (left shoulder) Denies: Chronic Kidney Disease - Surgical History Surgical History: Endoscopy - Family History Family History: States: Unknown Family Hx - Social History Current smoker - smoking cessation education provided: Yes (light smoker <10 cigarettes ) Alcohol: < 2 Drinks/Day Drugs: Denies - Home Medications Home Medications: Ambulatory Orders Medication Instructions Recorded levETIRAcetam [Keppra] 500 mg PO BID 10/16/16 Ondansetron [Zofran] 4 mg PO Q6H #15 tab 09/26/17 Pantoprazole [Protonix EC Tab] 40 mg PO BID 15 Days #30 ect 09/26/17 Pantoprazole Sodium [Protonix] 40 mg PO DAILY #10 ect 10/03/17 Acetaminophen [Tylenol 325mg tab] 650 mg PO Q6H PRN #50 tab 10/13/17 Mupirocin 2% Ointment [Bactroban 1 appl TP Q12H #1 tube 10/13/17 Ointment] - Allergies Allergies/Adverse Reactions: Allergies Allergy/AdvReac Type Severity Reaction Status Date / Time aspirin Allergy NAUSEA Verified 10/13/17 08:08 ibuprofen [From Motrin] Allergy NAUSEA Verified 10/13/17 08:08 naproxen Allergy RASH Verified 10/13/17 08:08 NSAIDS (Non-Steroidal Allergy NAUSEA Verified 10/13/17 08:08 Anti-Inflamma Review of Systems ROS Statement: Except As Marked, All Systems Reviewed And Found Negative Musculoskeletal: Positive for: Leg Pain (left foot ) Physical Exam - Reviewed Nursing Documentation Reviewed: Yes Vital Signs Reviewed: Yes - Physical Exam Appears: Positive for: Non-toxic, No Acute Distress Head Exam: Positive for: ATRAUMATIC, NORMOCEPHALIC Skin: Positive for: Normal Color, Warm, Dry Eye Exam: Positive for: Normal appearance Neck: Positive for: Painless ROM Respiratory: Negative for: Respiratory Distress Extremity: Positive for: Normal ROM (lower extremities), Other (Abrasions and dry skin blisters to the sole of the left foot). Negative for: Tenderness ( left foot), Deformity, Swelling (left foot) Neurologic/Psych: Positive for: Alert, Oriented. Negative for: Motor/Sensory Deficits - ECG O2 Sat by Pulse Oximetry: 98 (RA) Pulse Ox Interpretation: Normal Medical Decision Making Medical Decision Making: Initial Impression: Foot pain Initial Plan: --Reevaluation Scribe Attestation: Documented by Giovany Puri, acting as a scribe for Kary Huizar MD Provider Scribe Attestation: All medical record entries made by the Scribe were at my direction and personally dictated by me. I have reviewed the chart and agree that the record accurately reflects my personal performance of the history, physical exam, medical decision making, and the department course for this patient. I have also personally directed, reviewed, and agree with the discharge instructions and disposition. Disposition - Clinical Impression Clinical Impression: Foot and toe(s), blister, without mention of infection - Patient ED Disposition Is Patient to be Admitted: No Doctor Will See Patient In The: Office Counseled Patient/Family Regarding: Diagnosis, Need For Followup - Disposition Referrals: Gaetano Carlos APN, APN [Non-Staff] - Disposition: Routine/Home Disposition Time: 11:00 Condition: STABLE Prescriptions: Acetaminophen [Tylenol 325mg tab] 650 mg PO Q6H PRN #50 tab PRN Reason: Pain, Mild (1-3) Mupirocin 2% Ointment [Bactroban Ointment] 1 appl TP Q12H #1 tube Instructions: Skin Abrasions Forms: [facility] (Montenegrin) - POA Present On Arrival: None
[2017-10-13 10:55] VITALS: BP 130/68; PULSE 98
== END 2017-10-13 11:22 | disposition home or self-care (01) ==
LOC: H.ER 07:50
DX: M79.672 Pain in left foot (principal); Z88.6 Allergy status to analgesic agent

== ENCOUNTER 2017-10-13 13:21 | Emergency (ER) | payer MEDICAID ==
[2017-10-13 13:21] VITALS: BMI 23.7
--- NOTE | 2017-10-13 15:20 | ED PDOC ---
HPI: Seizure Time Seen by Provider: 10/13/17 13:46 Chief Complaint (Nursing): Seizure Chief Complaint (Provider): Seizure History Per: Patient History/Exam Limitations: no limitations Recent Seizure Activity Began: Just Before Arrival Number Of Seizures: One Length Of Seizures (Duration): Unknown Associated Symptoms: denies: Bit Tongue, Incontinence Of Urine, Incontinence Of Stool, Injury As A Result Of Seizure Activity Additional Complaint(s): 52 y/o male with a history of seizures presents to the ED post-seizure. Patient was found by EMS during a seizure episode but was described as awake and alert in ambulance. He is currently taking Keppra 500 mg TID however patient states he has not taken his medication since yesterday. Patient was here in the ED this morning for a foot sore and wet sneakers. He denies biting tongue or lips, incontinence of urine or stool during seizure. Of note, patient is undomiciled. Past Medical History Reviewed: Historical Data, Nursing Documentation, Vital Signs Vital Signs: Last Vital Signs Temp 99.1 F 10/13/17 13:37 Pulse 105 H 10/13/17 13:37 Resp 20 10/13/17 13:37 BP 128/68 10/13/17 13:37 Pulse Ox 97 10/13/17 15:45 - Medical History PMH: Anemia, Back Problems (herniated disc), Deep Vein Thrombosis, Fractures ( rib fx, left shoulder, Left hand 5th digit, Humerus fracture), Gastritis, Pancreatitis, Seizures, Chronic Pain (left shoulder) Denies: Chronic Kidney Disease - Surgical History Surgical History: Endoscopy - Family History Family History: States: Unknown Family Hx - Living Arrangements Living Arrangements: Other (homeless) - Home Medications Home Medications: Ambulatory Orders Medication Instructions Recorded levETIRAcetam [Keppra] 500 mg PO BID 10/16/16 Ondansetron [Zofran] 4 mg PO Q6H #15 tab 09/26/17 Pantoprazole [Protonix EC Tab] 40 mg PO BID 15 Days #30 ect 09/26/17 Pantoprazole Sodium [Protonix] 40 mg PO DAILY #10 ect 10/03/17 Acetaminophen [Tylenol 325mg tab] 650 mg PO Q6H PRN #50 tab 10/13/17 Mupirocin 2% Ointment [Bactroban 1 appl TP Q12H #1 tube 10/13/17 Ointment] - Allergies Allergies/Adverse Reactions: Allergies Allergy/AdvReac Type Severity Reaction Status Date / Time aspirin Allergy NAUSEA Verified 10/13/17 08:08 ibuprofen [From Motrin] Allergy NAUSEA Verified 10/13/17 08:08 naproxen Allergy RASH Verified 10/13/17 08:08 NSAIDS (Non-Steroidal Allergy NAUSEA Verified 10/13/17 08:08 Anti-Inflamma Review of Systems ROS Statement: Except As Marked, All Systems Reviewed And Found Negative Cardiovascular: Negative for: Chest Pain Respiratory: Negative for: Shortness of Breath Musculoskeletal: Negative for: Other (joint pain) Physical Exam - Reviewed Nursing Documentation Reviewed: Yes Vital Signs Reviewed: Yes - Physical Exam Appears: Positive for: Well, Non-toxic, No Acute Distress Head Exam: Positive for: ATRAUMATIC, NORMAL INSPECTION, NORMOCEPHALIC Skin: Positive for: Normal Color, Warm, Dry Eye Exam: Positive for: EOMI, Normal appearance, PERRL ENT: Positive for: Normal ENT Inspection Neck: Positive for: Normal, Painless ROM, Supple Cardiovascular/Chest: Positive for: Regular Rate, Rhythm. Negative for: Murmur Respiratory: Positive for: Normal Breath Sounds. Negative for: Respiratory Distress Gastrointestinal/Abdominal: Positive for: Normal Exam, Soft Back: Positive for: Normal Inspection. Negative for: L CVA Tenderness, R CVA Tenderness, Vertebral Tenderness Extremity: Positive for: Normal ROM. Negative for: Pedal Edema, Deformity Neurologic/Psych: Positive for: Alert, Oriented (x3). Negative for: Motor/ Sensory Deficits - ECG O2 Sat by Pulse Oximetry: 97 (RA) Pulse Ox Interpretation: Normal Medical Decision Making Medical Decision Making: Time: 13:37 Impression: Seizure disorder, non-compliant, undomiciled Initial Plan: * Keppra 1000 mg PO Scribe Attestation: Documented by Humble Theodore acting as a scribe for Kary Huizar MD. Scribe Attestation: All medical record entries made by the Scribe were at my direction and personally dictated by me. I have reviewed the chart and agree that the record accurately reflects my personal performance of the history, physical exam, medical decision making, and the department course for this patient. I have also personally directed, reviewed, and agree with the discharge instructions and disposition. 4.00 patient stable since arrival. Will d/c. Disposition - Clinical Impression Clinical Impression: Seizure disorder - Patient ED Disposition Is Patient to be Admitted: No Doctor Will See Patient In The: Office Counseled Patient/Family Regarding: Diagnosis, Need For Followup - Disposition Disposition: Routine/Home Disposition Time: 16:08 Condition: STABLE Instructions: Seizures, Adult (DC) Forms: [facility] (Taiwanese) - POA Present On Arrival: None
[2017-10-13 16:18] VITALS: BP 118/72; PULSE 90; RESP 16; TEMP 97.6; O2SAT 100
== END 2017-10-13 16:46 | disposition home or self-care (01) ==
LOC: H.ER 13:21
DX: G40.909 Epilepsy, unspecified, not intractable, without status epilepticus (principal)

== ENCOUNTER 2017-10-13 17:45 | Emergency (ER) | payer MEDICAID ==
[2017-10-13 17:45] VITALS: BMI 23.7
[2017-10-13 18:06] VITALS: RESP 18
--- NOTE | 2017-10-13 18:17 | ED PDOC ---
Lower Extremity Pain/Injury Time Seen by Provider: 10/13/17 18:08 Chief Complaint (Nursing): Lower Extremity Problem/Injury Chief Complaint (Provider): left foot pain History Per: Patient Additional Complaint(s): 52-year-old male with history of alcohol abuse and seizure disorder presents to emergency department for evaluation of left foot pain. Patient states he has a painful blister to bottom of left foot and it is causing him pain. He was already seen once earlier today for same complaints. He denies any fever or chills. PMD: none Past Medical History Reviewed: Historical Data, Nursing Documentation, Vital Signs Vital Signs: Last Vital Signs Temp 100.1 F H 10/13/17 18:04 Pulse 117 H 10/13/17 18:04 Resp 18 10/13/17 18:04 BP 137/76 10/13/17 18:04 Pulse Ox 100 10/13/17 18:04 - Medical History PMH: Anemia, Back Problems (herniated disc), Deep Vein Thrombosis, Fractures ( rib fx, left shoulder, Left hand 5th digit, Humerus fracture), Gastritis, Pancreatitis, Seizures, Chronic Pain (left shoulder) - Surgical History Surgical History: Endoscopy - Family History Family History: States: No Known Family Hx - Living Arrangements Living Arrangements: Other (non domiciled) - Social History Current smoker - smoking cessation education provided: No Alcohol: > 2 Drinks/Day Drugs: Denies - Home Medications Home Medications: Ambulatory Orders Medication Instructions Recorded levETIRAcetam [Keppra] 500 mg PO BID 10/16/16 Ondansetron [Zofran] 4 mg PO Q6H #15 tab 09/26/17 Pantoprazole [Protonix EC Tab] 40 mg PO BID 15 Days #30 ect 09/26/17 Pantoprazole Sodium [Protonix] 40 mg PO DAILY #10 ect 10/03/17 Acetaminophen [Tylenol 325mg tab] 650 mg PO Q6H PRN #50 tab 10/13/17 Mupirocin 2% Ointment [Bactroban 1 appl TP Q12H #1 tube 10/13/17 Ointment] - Allergies Allergies/Adverse Reactions: Allergies Allergy/AdvReac Type Severity Reaction Status Date / Time aspirin Allergy NAUSEA Verified 10/13/17 08:08 ibuprofen [From Motrin] Allergy NAUSEA Verified 10/13/17 08:08 naproxen Allergy RASH Verified 10/13/17 08:08 NSAIDS (Non-Steroidal Allergy NAUSEA Verified 10/13/17 08:08 Anti-Inflamma Wells Criteria for PE - Wells Criteria for Pulmonary Embolism Clinical Signs and Symptoms of DVT: No P.E is #1 Diagnosis, or Equally Likely: No Heart Rate >100: No Immobilization at least 3 days;Surgery previous 4 weeks: No Previous, objectively diagnosed PE or DVT: No Hemoptysis: No Malignancy w/treatment within 6 months, or palliative: No Total Score: 0 Review of Systems ROS Statement: Except As Marked, All Systems Reviewed And Found Negative Constitutional: Negative for: Fever Cardiovascular: Negative for: Chest Pain Gastrointestinal: Negative for: Nausea, Vomiting Musculoskeletal: Positive for: Other (left foot pain due to blister) Neurological: Negative for: Headache, Dizziness Physical Exam - Reviewed Nursing Documentation Reviewed: Yes Vital Signs Reviewed: Yes - Physical Exam Appears: Positive for: Well, Non-toxic, No Acute Distress Skin: Negative for: Rash Eye Exam: Positive for: Normal appearance Cardiovascular/Chest: Positive for: Regular Rate, Rhythm Respiratory: Positive for: Normal Breath Sounds Extremity: Positive for: Other (superficial, non-infected blister noted to the plantar aspect of left foot, superficial skin layer is peeling. No active drainage noted, minimal tenderness to palpation, normal distal sensation) Neurologic/Psych: Positive for: Alert, Oriented - ECG O2 Sat by Pulse Oximetry: 100 Pulse Ox Interpretation: Normal Medical Decision Making Medical Decision Makin52 year old male with painful blister to left foot This is patient's 4th visit to ED today Plan: Blister to left foot was cleansed with normal saline, bandage was applied. Toradol IM dose administered Patient was referred to podiatry clinic Disposition - Clinical Impression Clinical Impression: Blister of foot without infection - Patient ED Disposition Is Patient to be Admitted: No Counseled Patient/Family Regarding: Diagnosis, Need For Followup - Disposition Referrals: Podiatry Clinic [Outside] Disposition: Routine/Home Disposition Time: 18:22 Condition: STABLE Additional Instructions: Follow up with podiatry clinic. Instructions: Blisters Forms: [employer] (Persian)
[2017-10-13 18:43] VITALS: BP 128/76; PULSE 76; TEMP 98.8; O2SAT 100
== END 2017-10-13 18:43 | disposition home or self-care (01) ==
LOC: H.ER 17:45
DX: S90.822A Blister (nonthermal), left foot, initial encounter (principal); Y92.89 Other specified places as the place of occurrence of the external cause
CPT/HCPCS: 96372; 99283; J1885

== ENCOUNTER 2017-10-14 17:57 | Inpatient (IN) | payer MEDICAID ==
[2017-10-14 17:57] VITALS: BMI 23.7
[2017-10-14] MEDS ORDERED: Sodium Chloride 0.9% 1,000 ML IV STA (18:36)
[2017-10-14 19:18] LABS: BASO # 0.1 K/uL (0.0-0.2); BASO % 2.1 % (0.0-2.0); EOS # 0.2 K/uL (0.0-0.7); LYMPH # 0.6 K/uL (1.0-4.3); LYMPH % 22.2 % (20.0-40.0); MEAN CORPUSCULAR HEMOGLOBIN 28.1 pg (27.0-31.0); MEAN CORPUSCULAR HGB CONC 31.9 g/dL (33.0-37.0); MEAN PLATELET VOLUME 7.4 fl (7.2-11.7); MONO # 0.5 K/uL (0.0-0.8); MONO % 17.4 % (0.0-10.0); NEUT # 1.4 K/uL (1.8-7.0); NEUT % 51.3 % (50.0-75.0); NRBC % 0.1 % (0.0-0.0); RBC 2.31 Mil/uL (4.40-5.90); RED CELL DISTRIBUTION WIDTH 18.9 % (11.5-14.5); WHITE BLOOD COUNT 2.8 K/uL (4.8-10.8)
[2017-10-14 19:21] LABS: HEMOGLOBIN 6.5 g/dL (12.0-18.0)
--- NOTE | 2017-10-14 19:26 | ED PDOC ---
HPI: Abdomen Time Seen by Provider: 10/14/17 18:35 Chief Complaint (Nursing): GI Problem Chief Complaint (Provider): GI Problem History Per: Patient History/Exam Limitations: no limitations Current Symptoms Are (Timing): Still Present Additional Complaint(s): 52 y/o male presents to the ED complaining of 2 episodes of vomiting blood prior to arrival and mild epigastric abdominal discomfort. Reports history of gastrointestinal bleeding requiring ICU stay several months ago. Denies dizziness, rectal bleeding, syncope or any further medical complaints. PMD: Matt Moreno MD Past Medical History Reviewed: Historical Data, Nursing Documentation, Vital Signs Vital Signs: Last Vital Signs Temp 98.0 F 10/14/17 18:09 Pulse 110 H 10/14/17 18:09 Resp 16 10/14/17 18:09 BP 123/60 10/14/17 18:09 Pulse Ox 100 10/14/17 19:42 - Medical History PMH: Anemia, Back Problems (herniated disc), Deep Vein Thrombosis, Fractures ( rib fx, left shoulder, Left hand 5th digit, Humerus fracture), Gastritis, Pancreatitis, Seizures (Patient taked Keppra for seizures), Chronic Pain (left shoulder) Denies: Chronic Kidney Disease - Surgical History Surgical History: Endoscopy - Social History Current smoker - smoking cessation education provided: Yes (Light Smoker < 10 Cigarettes Daily) Alcohol: Other (Yes) Drugs: Denies - Home Medications Home Medications: Ambulatory Orders Medication Instructions Recorded levETIRAcetam [Keppra] 500 mg PO BID 10/16/16 Ondansetron [Zofran] 4 mg PO Q6H #15 tab 09/26/17 Pantoprazole [Protonix EC Tab] 40 mg PO BID 15 Days #30 ect 09/26/17 Pantoprazole Sodium [Protonix] 40 mg PO DAILY #10 ect 10/03/17 Acetaminophen [Tylenol 325mg tab] 650 mg PO Q6H PRN #50 tab 10/13/17 Mupirocin 2% Ointment [Bactroban 1 appl TP Q12H #1 tube 10/13/17 Ointment] - Allergies Allergies/Adverse Reactions: Allergies Allergy/AdvReac Type Severity Reaction Status Date / Time aspirin Allergy NAUSEA Verified 10/14/17 18:09 ibuprofen [From Motrin] Allergy NAUSEA Verified 10/14/17 18:09 naproxen Allergy RASH Verified 10/14/17 18:09 NSAIDS (Non-Steroidal Allergy NAUSEA Verified 10/14/17 18:09 Anti-Inflamma Review of Systems ROS Statement: Except As Marked, All Systems Reviewed And Found Negative (As per HPI, otherwise negative) Cardiovascular: Negative for: Chest Pain Gastrointestinal: Positive for: Abdominal Pain, Hematemesis Physical Exam - Reviewed Nursing Documentation Reviewed: Yes Vital Signs Reviewed: Yes - Physical Exam Appears: Positive for: Non-toxic, No Acute Distress Head Exam: Positive for: ATRAUMATIC, NORMAL INSPECTION, NORMOCEPHALIC Skin: Positive for: Normal Color, Warm, Dry Eye Exam: Positive for: EOMI, Normal appearance, PERRL ENT: Positive for: Normal ENT Inspection Neck: Positive for: Normal, Painless ROM, Supple Cardiovascular/Chest: Positive for: Regular Rate, Rhythm. Negative for: Murmur Respiratory: Positive for: Normal Breath Sounds. Negative for: Accessory Muscle Use, Respiratory Distress Gastrointestinal/Abdominal: Positive for: Normal Exam, Soft. Negative for: Tenderness Back: Positive for: Normal Inspection Extremity: Positive for: Normal ROM. Negative for: Deformity Neurologic/Psych: Positive for: Alert, Oriented (x3) - Laboratory Results Result Diagrams: 10/14/17 19:05 10/14/17 19:05 - ECG ECG Rhythm: Positive for: Sinus Rhythm (at 92 beats/min with prolonged QT) O2 Sat by Pulse Oximetry: 100 (RA) Pulse Ox Interpretation: Normal Medical Decision Making Medical Decision Making: Time: 18:36 Initial Impression: Hematemesis Plan: EKG Alcohol serum CMP Lipase CBC w/ differential PTT Prothrombin time Sodium chloride 1L IV Pantoprazole 40mg IVP Reevaluation --Labs indicate worsening anemia at 6.6 Time: 19:21 Crossmatch Type and Screen Patient is signed out to Dr. Chiu pending labs and likely admission. Scribe Attestation: Documented by Parker Rangel acting as a scribe for Brody Lu MD. Scribe Attestation: All medical record entries made by the Scribe were at my direction and personally dictated by me. I have reviewed the chart and agree that the record accurately reflects my personal performance of the history, physical exam, medical decision making, and the department course for this patient. I have also personally directed, reviewed, and agree with the discharge instructions and disposition. Disposition - Disposition Forms: [employer] (Zambian)
[2017-10-14 19:31] LABS: BLOOD UREA NITROGEN 22 mg/dl (9-20); GFR AFRICAN-AMERICAN > 60; GFR NON-AFRICAN AMERICAN > 60
[2017-10-14 19:32] LABS: ALB/GLOB RATIO 0.7 (1.0-2.1); ALBUMIN 2.7 g/dL (3.5-5.0); ALT/SGPT 64 U/L (21-72); AST/SGOT 94 U/L (17-59); CALCIUM 8.4 mg/dL (8.4-10.2); INR 1.7 (0.9-1.2); LIPASE 389 U/L (23-300); PROTHROMBIN TIME 19.4 Seconds (9.8-13.1)
[2017-10-14] MEDS ORDERED: Pantoprazole 40 MG in Sodium Chloride 0.9% 100 ML IVPB STA (19:50)
--- NOTE | 2017-10-14 19:57 | ED PDOC ---
- Laboratory Results Result Diagrams: 10/14/17 21:37 10/14/17 19:05 - ECG O2 Sat by Pulse Oximetry: 100 (RA) - Critical Care Total Time (In Min): 60 Medical Decision Making Medical Decision Making: Time: 19:00 Patient is signed over to me by Dr. Lu pending labs, workup, and admission. Will place on PPI drip, obtain second IV access, stool occult. 2100 Patient had normal brown stool on rectal exam. Vitals improving. Spoke with Dr. Jones of GI who recommended octreotide bolus and infusion. PAtient not needing ICU given normal vitals, will admit to [facility] under service. Scribe Attestation: Documented by Parker Rangel acting as a scribe for Murphy Chiu MD. Scribe Attestation: All medical record entries made by the Scribe were at my direction and personally dictated by me. I have reviewed the chart and agree that the record accurately reflects my personal performance of the history, physical exam, medical decision making, and the department course for this patient. I have also personally directed, reviewed, and agree with the discharge instructions and disposition. Disposition - Clinical Impression Clinical Impression: GI bleed, Anemia - POA Present On Arrival: None - Disposition Disposition: Admitted as In-Patient Disposition Time: 21:00 Condition: FAIR
[2017-10-14 21:55] LABS: MEAN CELL VOLUME 88.5 fl (80.0-94.0); MEAN CORPUSCULAR HEMOGLOBIN 28.4 pg (27.0-31.0); MEAN CORPUSCULAR HGB CONC 32.1 g/dL (33.0-37.0); RBC 2.26 Mil/uL (4.40-5.90); RED CELL DISTRIBUTION WIDTH 19.4 % (11.5-14.5); WHITE BLOOD COUNT 2.5 K/uL (4.8-10.8)
[2017-10-14 21:59] LABS: HEMOGLOBIN 6.4 g/dL (12.0-18.0)
--- NOTE | 2017-10-14 22:26 | CP.PCM.HP ---
History of Present Illness - History of Present Illness History of Present Illness: 52 yo m, PMhx/o for Seizures, ETOH Abuse, Hepatic encephalopathy, Pancytopenia , Alcohol Liver Cirrhosis with TIPs procedure, multiples visits to ED for different complaints presents to ED c/o 2 episodes of bloody vomiting about 6 pm while he was in the hospital visiting his sister, associated with mild epigastric discomfort , but not pain. He denies rectal bleeding, melena, fever, chest pain, SOB, lightheadedness, dizziness, diarrhea, constipation. Reports normal BM everyday no melanotic. Reports not drinking alcohol since 4 weeks but ETOH positive in ED. Reports a visit to ED yesterday for seizures and states will have appt with Neuro Sr Natasha in [facility] next Wednesday. PMD: [facility]. Last seen by PMD at [facility] 09/27/17 Dr Saldana PMHx: ETOH abuse (reports that the last alcohol use was 1 month ago, inconsistent story as per prior admissions), Epilepsy controlled via Keppra 500mg BID Meds: Keppra 500mg PO BID PsurgHx: TIPS in 2014 PHospHx: multiple ED visits for ETOH abuse, Hepatic Encelopathy SocialHx:2-3 cigarettes per day, h/o ETOH abuse/states he stopped drinking 1 year ago, and denies illicit drug use -lives in [place] with roommate FamilyHx: Father MD, mother breast cancer, siblings alive, sister recently diagnosed with colon cancer Next of kin: Sister Missy: [phone] Code Status: full code ED course VS: BP : BP: 123/60 HR: 110 PE: AAOx3. Abd: Hepatosplenomegaly.abd collateral circulation. Patient had normal brown stool on rectal exam. Guaiac neg Labs: CBC: 2.8>6.5<74 CMP: BUN 22/1.1 INR: 1.7 Jose Luis 1.7 AST/ALT 94/64 lipase 389 Imaging: CXR: no pneumothorax, no acute infiltrates( interpretated by me) Meds: Protonix 80 mg IV, Protonix drip, Octreotide 50 mg iv stat. Octreotide drip. NS 1L Case discussed with Dr. Jones of GI who recommended octreotide bolus and infusion Present on Admission - Present on Admission Any Indicators Present on Admission: No History of DVT/PE: No History of Uncontrolled Diabetes: No Urinary Catheter: No Decubitus Ulcer Present: No Review of Systems - Review of Systems All systems: reviewed and no additional remarkable complaints except - Cardiovascular Cardiovascular: As Per HPI - Respiratory Respiratory: As Per HPI - Gastrointestinal Gastrointestinal: Hematemesis - Musculoskeletal Musculoskeletal: As Per HPI Past Patient History - Infectious Disease Hx of Infectious Diseases: None - Tetanus Immunizations Tetanus Immunization: Unknown - Past Medical History & Family History Past Medical History?: Yes - Past Social History Alcohol: Other (Yes) Drugs: Denies - CARDIAC Hx Cardiac Disorders: Yes - PULMONARY Hx Respiratory Disorders: No - NEUROLOGICAL Hx Seizures: Yes (Patient taked Keppra for seizures) - HEENT Hx HEENT Problems: No - RENAL Hx Chronic Kidney Disease: No - ENDOCRINE/METABOLIC Hx Endocrine Disorders: No - HEMATOLOGICAL/ONCOLOGICAL Hx Anemia: Yes - INTEGUMENTARY Hx Cellulitis: Yes - MUSCULOSKELETAL/RHEUMATOLOGICAL Hx Fractures: Yes (rib fx, left shoulder, Left hand 5th digit, Humerus fracture) - GASTROINTESTINAL Hx Gastritis: Yes Hx Pancreatitis: Yes - PSYCHIATRIC Hx Psychophysiologic Disorder: No Hx Substance Use: No (DENIES) - SURGICAL HISTORY Other/Comment: FINGER SX AND "STENT IN MY LIVER" - ANESTHESIA Hx Anesthesia: Yes Hx Anesthesia Reactions: No Hx Malignant Hyperthermia: No Meds Allergies/Adverse Reactions: Allergies Allergy/AdvReac Type Severity Reaction Status Date / Time aspirin Allergy NAUSEA Verified 10/14/17 18:09 ibuprofen [From Motrin] Allergy NAUSEA Verified 10/14/17 18:09 naproxen Allergy RASH Verified 10/14/17 18:09 NSAIDS (Non-Steroidal Allergy NAUSEA Verified 10/14/17 18:09 Anti-Inflamma Physical Exam - Constitutional Appears: No Acute Distress - Head Exam Head Exam: ATRAUMATIC, NORMOCEPHALIC - Eye Exam Eye Exam: EOMI Additional comments: conjunctival pallor - ENT Exam ENT Exam: Mucous Membranes Moist - Neck Exam Neck exam: Positive for: Normal Inspection - Respiratory Exam Respiratory Exam: Clear to Auscultation Bilateral. absent: Rales, Rhonchi, Wheezes - Cardiovascular Exam Cardiovascular Exam: REGULAR RHYTHM, +S1, +S2, Systolic Murmur Additional comments: 3/3 pansystolic, not radiated - GI/Abdominal Exam GI & Abdominal Exam: Normal Bowel Sounds, Organomegaly, Soft. absent: Guarding , Rebound Additional comments: hepatosplenomegaly - Extremities Exam Extremities exam: Positive for: normal capillary refill, normal inspection. Negative for: pedal edema - Back Exam Back exam: NORMAL INSPECTION - Neurological Exam Neurological exam: Alert, Oriented x3 - Psychiatric Exam Psychiatric exam: Normal Affect, Normal Mood - Skin Skin Exam: Intact Results - Vital Signs Recent Vital Signs: Last Vital Signs Temp 98.0 F 10/14/17 18:09 Pulse 87 10/14/17 20:30 Resp 18 10/14/17 20:30 BP 121/62 10/14/17 20:30 Pulse Ox 98 10/14/17 20:30 - Labs Result Diagrams: 10/14/17 21:37 10/14/17 19:05 Labs: Laboratory Results - last 24 hr 10/14/17 10/14/17 10/14/17 19:05 19:05 19:05 WBC 2.8 L D RBC 2.31 L Hgb 6.5 L* D Hct 20.3 L MCV 88.0 D MCH 28.1 MCHC 31.9 L RDW 18.9 H Plt Count 74 L D MPV 7.4 Neut % (Auto) 51.3 Lymph % (Auto) 22.2 [place] % (Auto) 17.4 H Eos % (Auto) 7.0 H Baso % (Auto) 2.1 H Neut # (Auto) 1.4 L Lymph # (Auto) 0.6 L [place] # (Auto) 0.5 Eos # (Auto) 0.2 Baso # (Auto) 0.1 PT 19.4 H INR 1.7 H APTT 32.0 Sodium 136 Potassium 3.9 Chloride 104 Carbon Dioxide 20 L Anion Gap 16 BUN 22 H Creatinine 1.1 Est GFR ( Amer) > 60 Est GFR (Non-Af Amer) > 60 Random Glucose 104 Calcium 8.4 Total Bilirubin 1.7 H AST 94 H ALT 64 Alkaline Phosphatase 180 H Total Protein 6.2 L Albumin 2.7 L Globulin 3.6 Albumin/Globulin Ratio 0.7 L Lipase 389 H Stool Occult Blood Alcohol, Quantitative 20 H Blood Type Antibody Screen BBK History Checked 10/14/17 10/14/17 10/14/17 19:40 20:31 21:37 WBC 2.5 L RBC 2.26 L Hgb 6.4 L* Hct 20.0 L MCV 88.5 MCH 28.4 MCHC 32.1 L RDW 19.4 H Plt Count 69 L MPV Neut % (Auto) Lymph % (Auto) [place] % (Auto) Eos % (Auto) Baso % (Auto) Neut # (Auto) Lymph # (Auto) [place] # (Auto) Eos # (Auto) Baso # (Auto) PT INR APTT Sodium Potassium Chloride Carbon Dioxide Anion Gap BUN Creatinine Est GFR ( Amer) Est GFR (Non-Af Amer) Random Glucose Calcium Total Bilirubin AST ALT Alkaline Phosphatase Total Protein Albumin Globulin Albumin/Globulin Ratio Lipase Stool Occult Blood Negative Alcohol, Quantitative Blood Type O POSITIVE Antibody Screen Negative BBK History Checked Patient has bt Assessment & Plan - Assessment and Plan (Free Text) Plan: 52 yo m, PMhx/o for Seizures, ETOH Abuse, Hepatic encephalopathy, Pancytopenia , Alcohol Liver Cirrhosis with TIPs procedure admitted for GI bleeding and Acute on chronic anemia Assessment/Plan 1) Upper GI bleeding -hematemesis -LALITHA normal, Guaiac neg -with acute anemia but hemodynamically stable after IV fluids NS 1l . -s/p Pantoprazol ED -s/o Octreotide ED -c/w pantoprazol drip -c/w octreotide drip -ceftriazone for SBP prophylaxis -NPO -IV Fluids NS 125 ml/h -GI consult suggested: case discussed with GI fellow in ED recommended octreotide bolus and infusion -f/u CBC, CMP, PT,PTT, Mg, Ph, lipase, ammonium 2) Acute on chronic anemia -secondary to acute blood loss -chronic liver disease, cirrhosis and hypersplenism Hgb: 6.5 -transfuse 2 units pRBC -f/u cbc 3) Alcoholic Liver Cirrhosis -CT abd: 08/30/17: cirrhosis with portal hypertension -last EGD done on 05/04/17 because GI bleeding episode was reported as LA Grade C esophagitis. POrtal hypertensive gastropathy. No peptic ulcer reported. -GI consult suggested -high total bili, lipase elevated -f/u lipase 4) Pancytopenia -most likely 2/2 splenomegaly 2/2 liver cirrhosis -plt count 74 on admission -f/u CBC 5) Seizure -may be secondary to ETOH withdrawal or hepatic encephalopathy -c/w Home keppra 500 mg BID -will give IV while NPO for GI bleeding 6) Hx/o ETOH abuse -CIWA score 0 -alcohol withdrawal protocol 7) DVT prophylaxis -SCDs -due to GI bleeding and thrombocytopenia
[2017-10-14] MEDS ORDERED: Sodium Chloride 0.9% 1,000 ML IV SCH (22:45)
--- NOTE | 2017-10-15 08:09 | CP.PCM.PN ---
Subjective - Date & Time of Evaluation Date of Evaluation: 10/15/17 Time of Evaluation: 08:11 - Subjective Subjective: Patient seen and examined this morning at bedside, no acute events overnight, receiving 1 unit of PRBC, reports feeling better, wants to eat. Afebrile. Denies melena, hematesis, abdominal or chest pain, dizziness, blurred vision, headache. Objective - Vital Signs/Intake and Output Vital Signs (last 24 hours): Temp Pulse Resp BP Pulse Ox 97.6 F 82 18 111/59 L 96 10/15/17 05:04 10/15/17 05:04 10/15/17 05:04 10/15/17 05:04 10/15/17 05:04 - Medications Medications: Current Medications Acetaminophen (Tylenol 650 Mg Supp) 650 mg OH Q6 PRN PRN Reason: Fever >100.4 F Octreotide Acetate 1,250 mcg/ (Sodium Chloride) 252.5 mls @ 50 mls/hr IV .Q5H3M JANNIE PRN Reason: Protocol Stop: 10/15/17 22:29 Last Admin: 10/15/17 04:56 Dose: 50 mls/hr Ceftriaxone Sodium 1 gm/ (Sodium Chloride) 100 mls @ 100 mls/hr IVPB DAILY JANNIE PRN Reason: Protocol Sodium Chloride (Sodium Chloride 0.9%) 1,000 mls @ 125 mls/hr IV .Q8H JANNIE Stop: 10/15/17 22:43 Last Admin: 10/14/17 23:15 Dose: 125 mls/hr Levetiracetam 500 mg/ Sodium (Chloride) 105 mls @ 210 mls/hr IVPB Q12 JANNIE Lorazepam (Ativan) 0.5 mg IVP Q8H PRN PRN Reason: Agitation Morphine Sulfate (Morphine) 2 mg IVP Q6 PRN PRN Reason: Pain, severe (8-10) Last Admin: 10/14/17 23:20 Dose: 2 mg Ondansetron HCl (Zofran Inj) 4 mg IVP Q6 PRN PRN Reason: Nausea/Vomiting - Labs Labs: 10/14/17 21:37 10/14/17 19:05 PT 19.4 Seconds (9.8-13.1) H 10/14/17 19:05 INR 1.7 (0.9-1.2) H 10/14/17 19:05 APTT 32.0 Seconds (25.6-37.1) 10/14/17 19:05 - Constitutional Appears: No Acute Distress - Head Exam Head Exam: NORMAL INSPECTION - Eye Exam Eye Exam: EOMI, PERRL. absent: Nystagmus - Respiratory Exam Respiratory Exam: Clear to Ausculation Bilateral, NORMAL BREATHING PATTERN - Cardiovascular Exam Cardiovascular Exam: REGULAR RHYTHM, +S1, +S2 - GI/Abdominal Exam GI & Abdominal Exam: Soft, Normal Bowel Sounds. absent: Distended, Tenderness - Extremities Exam Extremities Exam: absent: Calf Tenderness - Neurological Exam Neurological Exam: Alert, Awake, Oriented x3 Assessment and Plan - Assessment and Plan (Free Text) Assessment: 52 yo M with PMhx/o Seizures, ETOH Abuse, Hepatic encephalopathy, Pancytopenia , Alcohol Liver Cirrhosis with TIPs procedure admitted for GI bleeding and Acute on chronic anemia. Plan: 1- Upper GI bleeding - c/w pantoprazol 40 BID - c/w octreotide drip - ceftriazone for SBP prophylaxis - NPO - IV Fluids NS 125 ml/h - GI consult Dr Sawant recs appreciated. - GI fellow in ED recommended octreotide bolus and infusion. - ammonia 149 - S/P EGD: superficial esophageal ulcer w/o evidence of recent bleeding, gastroparesis, gastritis normal dudenal bulb and 2nd portion of duodenum. 2- Acute on chronic anemia - secondary to acute blood loss - FOBT neg - s/p 2 units pRBC - H/H: 8.9/ 27.6 3- Pancytopenia - most likely 2/2 splenomegaly 2/2 liver cirrhosis - CBC: 3.3 <8.9> 85, ANC 1881 - Heme/onc Dr Mack consulted, recs appreciated. 4-Alcoholic Liver Cirrhosis - CT abd: 08/30/17: cirrhosis with portal hypertension - EGD 05/04/17: LA Grade C esophagitis. Portal hypertensive gastropathy. No peptic ulcer reported. - lipase 314 - MELD score 15 5- Seizure - secondary to ETOH withdrawal and/or hepatic encephalopathy - keppra 500 mg IV BID 7- Hx/o ETOH abuse - CIWA score 1 - alcohol quanti 20 - alcohol withdrawal protocol 8- DVT prophylaxis - SCDs, due to GI bleeding and thrombocytopenia.
[2017-10-15 08:22] LABS: BASO % 1.5 % (0.0-2.0); EOS # 0.3 K/uL (0.0-0.7); EOS % 9.2 % (0.0-4.0); LYMPH # 0.6 K/uL (1.0-4.3); LYMPH % 17.9 % (20.0-40.0); MEAN CELL VOLUME 87.7 fl (80.0-94.0); MEAN CORPUSCULAR HEMOGLOBIN 28.3 pg (27.0-31.0); MEAN CORPUSCULAR HGB CONC 32.2 g/dL (33.0-37.0); MEAN PLATELET VOLUME 7.5 fl (7.2-11.7); MONO # 0.5 K/uL (0.0-0.8); MONO % 14.4 % (0.0-10.0); NEUT # 1.9 K/uL (1.8-7.0); RBC 3.15 Mil/uL (4.40-5.90); RED CELL DISTRIBUTION WIDTH 18.2 % (11.5-14.5); WHITE BLOOD COUNT 3.3 K/uL (4.8-10.8)
[2017-10-15 08:26] LABS: HEMOGLOBIN 8.9 g/dL (12.0-18.0)
[2017-10-15 08:38] LABS: INR 1.7 (0.9-1.2); PARTIAL THROMBOPLASTIN TIME 39.6 Seconds (25.6-37.1); PROTHROMBIN TIME 18.5 Seconds (9.8-13.1)
[2017-10-15 08:46] LABS: ALB/GLOB RATIO 0.7 (1.0-2.1); ALBUMIN 2.6 g/dL (3.5-5.0); ALT/SGPT 58 U/L (21-72); AST/SGOT 90 U/L (17-59); BLOOD UREA NITROGEN 15 mg/dl (9-20); CALCIUM 7.9 mg/dL (8.4-10.2); GFR AFRICAN-AMERICAN > 60; GFR NON-AFRICAN AMERICAN > 60; LIPASE 314 U/L (23-300)
[2017-10-15] MEDS ORDERED: levETIRAcetam 500 MG in Sodium Chloride 0.9% 100 ML IVPB SCH (09:00)
--- NOTE | 2017-10-15 09:05 | RAD ---
HISTORY: GIB COMPARISON: Chest radiograph dated 10/09/2017. FINDINGS: LUNGS: No active pulmonary disease. PLEURA: No significant pleural effusion identified, no pneumothorax apparent. CARDIOVASCULAR: Atherosclerotic aortic calcifications. Cardiomediastinal silhouette within normal limits. OSSEOUS STRUCTURES: Unchanged. VISUALIZED UPPER ABDOMEN: TIPS shunt redemonstrated. OTHER FINDINGS: None. IMPRESSION: No active disease.
--- NOTE | 2017-10-15 09:14 | CP.PCM.CON ---
<Edilma العراقي - Last Filed: 10/15/17 13:49> History of Present Illness - History of Present Illness History of Present Illness: GI Fellow PGY4 Consult Note This is a 52y male with PMHx significant for decompensated EtOH cirrhosis s/p TIPS (2014), severe esophagitis, upper GI bleeding with visible vessel at EGJ, epilepsy who presented to the ED with complaint of hematemesis. He states that he became nauseated earlier yesterday and vomiting 4 times, seeing moderate amount of bright red blood. The patient has been to the hospital with multiple admission over the past few weeks for seizure activity with an EtOH level significantly elevated though patient denies drinking heavily but did ingest hard liquor earlier this week but unable to quantify. Pt was admitted earlier this month with complaints of GI bleed and labs revealed anemia with HGB 6 and responded to transfusion of two units of PRBCs, no EGD at that time due to no active bleeding. During this admission pt was found to have Hgb 6.5 from 8.7 two days prior, hemodynamically stable with no active bleeding. ROS: 12 system ROS performed and negative except where stated PMHx: See HPI PSHx: TIPS in 2014 FHx: Father - [place]; Mother - breast cancer; Sister - colon cancer @ 58yo Social: Denies EtOH use for >1 year but EtOH level elevated this week; denies tobacco or illicit drug use Endo: Colonoscopy - 06/2017 - Poor prep, internal/external hemorrhoids EGD - 04/2017 - LA Grade C esophagitis with visible vessel at EGJ s/p clip and injection of epi, portal hypertensive gastropathy Past Patient History - Infectious Disease Hx of Infectious Diseases: None - Tetanus Immunizations Tetanus Immunization: Unknown - Past Medical History & Family History Past Medical History?: Yes - Past Social History Smoking Status: Light Smoker < 10 Cigarettes Daily - CARDIAC Hx Cardiac Disorders: No - PULMONARY Hx Respiratory Disorders: No - NEUROLOGICAL Hx Seizures: Yes (Patient takes Keppra for seizures) - HEENT Hx HEENT Problems: No - RENAL Hx Chronic Kidney Disease: No - ENDOCRINE/METABOLIC Hx Endocrine Disorders: No - HEMATOLOGICAL/ONCOLOGICAL Hx AIDS: No Hx Anemia: Yes Hx Blood Transfusions: Yes Hx Human Immunodeficiency Virus (HIV): No - INTEGUMENTARY Hx Cellulitis: Yes - MUSCULOSKELETAL/RHEUMATOLOGICAL Hx Falls: Yes Hx Fractures: Yes (rib fx, left shoulder, Left hand 5th digit, Humerus fracture) - GASTROINTESTINAL Hx Gastritis: Yes Hx Pancreatitis: Yes - GENITOURINARY/GYNECOLOGICAL Hx Genitourinary Disorders: No - PSYCHIATRIC Hx Psychophysiologic Disorder: No Hx Substance Use: No (DENIES) - SURGICAL HISTORY Hx Surgeries: Yes Other/Comment: FINGER SX AND "STENT IN MY LIVER" - ANESTHESIA Hx Anesthesia: Yes Hx Anesthesia Reactions: No Hx Malignant Hyperthermia: No Has any member of the family had a problem w/ anesthesia?: No Meds Allergies/Adverse Reactions: Allergies Allergy/AdvReac Type Severity Reaction Status Date / Time aspirin Allergy NAUSEA Verified 10/14/17 18:09 ibuprofen [From Motrin] Allergy NAUSEA Verified 10/14/17 18:09 naproxen Allergy RASH Verified 10/14/17 18:09 NSAIDS (Non-Steroidal Allergy NAUSEA Verified 10/14/17 18:09 Anti-Inflamma - Medications Medications: Current Medications Acetaminophen (Tylenol 650 Mg Supp) 650 mg SC Q6 PRN PRN Reason: Fever >100.4 F Octreotide Acetate 1,250 mcg/ (Sodium Chloride) 252.5 mls @ 50 mls/hr IV .Q5H3M JANNIE PRN Reason: Protocol Stop: 10/15/17 22:29 Last Admin: 10/15/17 04:56 Dose: 50 mls/hr Ceftriaxone Sodium 1 gm/ (Sodium Chloride) 100 mls @ 100 mls/hr IVPB DAILY JANNIE PRN Reason: Protocol Sodium Chloride (Sodium Chloride 0.9%) 1,000 mls @ 125 mls/hr IV .Q8H [facility] Stop: 10/15/17 22:43 Last Admin: 10/14/17 23:15 Dose: 125 mls/hr Levetiracetam (Keppra) 500 mg PO BID [facility] Lorazepam (Ativan) 0.5 mg IVP Q8H PRN PRN Reason: Agitation Morphine Sulfate (Morphine) 2 mg IVP Q6 PRN PRN Reason: Pain, severe (8-10) Last Admin: 10/14/17 23:20 Dose: 2 mg Ondansetron HCl (Zofran Inj) 4 mg IVP Q6 PRN PRN Reason: Nausea/Vomiting Physical Exam - Constitutional Appears: Non-toxic, No Acute Distress - Head Exam Head Exam: NORMAL INSPECTION, NORMOCEPHALIC - Eye Exam Eye Exam: Normal appearance, PERRL Pupil Exam: PERRL - ENT Exam ENT Exam: Mucous Membranes Dry - Neck Exam Neck exam: Positive for: Full Rom - Respiratory Exam Respiratory Exam: Clear to Auscultation Bilateral, NORMAL BREATHING PATTERN - Cardiovascular Exam Cardiovascular Exam: Tachycardia - GI/Abdominal Exam GI & Abdominal Exam: Normal Bowel Sounds, Soft. absent: Distended, Firm, Organomegaly, Tenderness - Rectal Exam Rectal Exam: Hemorrhoids Additional comments: brown stool - Neurological Exam Neurological exam: Alert, Oriented x3 - Psychiatric Exam Psychiatric exam: Normal Affect, Normal Mood - Skin Skin Exam: Dry, Intact, Normal Color, Warm Results - Vital Signs Recent Vital Signs: Last Vital Signs Temp 98.2 F 10/15/17 08:00 Pulse 82 10/15/17 08:00 Resp 18 10/15/17 08:00 BP 126/68 10/15/17 08:00 Pulse Ox 98 10/15/17 08:00 - Labs Result Diagrams: 10/15/17 08:05 10/15/17 08:05 Labs: Laboratory Results - last 24 hr 10/14/17 10/14/17 10/14/17 19:05 19:05 19:05 WBC 2.8 L D RBC 2.31 L Hgb 6.5 L* D Hct 20.3 L MCV 88.0 D MCH 28.1 MCHC 31.9 L RDW 18.9 H Plt Count 74 L D MPV 7.4 Neut % (Auto) 51.3 Lymph % (Auto) 22.2 [place] % (Auto) 17.4 H Eos % (Auto) 7.0 H Baso % (Auto) 2.1 H Neut # (Auto) 1.4 L Lymph # (Auto) 0.6 L [place] # (Auto) 0.5 Eos # (Auto) 0.2 Baso # (Auto) 0.1 PT 19.4 H INR 1.7 H APTT 32.0 Sodium 136 Potassium 3.9 Chloride 104 Carbon Dioxide 20 L Anion Gap 16 BUN 22 H Creatinine 1.1 Est GFR ( Amer) > 60 Est GFR (Non-Af Amer) > 60 Random Glucose 104 Calcium 8.4 Phosphorus Magnesium Total Bilirubin 1.7 H AST 94 H ALT 64 Alkaline Phosphatase 180 H Total Protein 6.2 L Albumin 2.7 L Globulin 3.6 Albumin/Globulin Ratio 0.7 L Lipase 389 H Stool Occult Blood Alcohol, Quantitative 20 H Blood Type Antibody Screen Crossmatch BBK History Checked 10/14/17 10/14/17 10/14/17 19:40 20:31 21:37 WBC 2.5 L RBC 2.26 L Hgb 6.4 L* Hct 20.0 L MCV 88.5 MCH 28.4 MCHC 32.1 L RDW 19.4 H Plt Count 69 L MPV Neut % (Auto) Lymph % (Auto) [place] % (Auto) Eos % (Auto) Baso % (Auto) Neut # (Auto) Lymph # (Auto) [place] # (Auto) Eos # (Auto) Baso # (Auto) PT INR APTT Sodium Potassium Chloride Carbon Dioxide Anion Gap BUN Creatinine Est GFR ( Amer) Est GFR (Non-Af Amer) Random Glucose Calcium Phosphorus Magnesium Total Bilirubin AST ALT Alkaline Phosphatase Total Protein Albumin Globulin Albumin/Globulin Ratio Lipase Stool Occult Blood Negative Alcohol, Quantitative Blood Type O POSITIVE Antibody Screen Negative Crossmatch See Detail BBK History Checked Patient has bt 10/15/17 10/15/17 10/15/17 08:05 08:05 08:05 WBC 3.3 L RBC 3.15 L Hgb 8.9 L D Hct 27.6 L MCV 87.7 MCH 28.3 MCHC 32.2 L RDW 18.2 H Plt Count 85 L MPV 7.5 Neut % (Auto) 57.0 Lymph % (Auto) 17.9 L [place] % (Auto) 14.4 H Eos % (Auto) 9.2 H Baso % (Auto) 1.5 Neut # (Auto) 1.9 Lymph # (Auto) 0.6 L [place] # (Auto) 0.5 Eos # (Auto) 0.3 Baso # (Auto) 0.0 PT 18.5 H INR 1.7 H APTT 39.6 H D Sodium 140 Potassium 4.6 Chloride 110 H Carbon Dioxide 21 L Anion Gap 14 BUN 15 Creatinine 0.8 Est GFR ( Amer) > 60 Est GFR (Non-Af Amer) > 60 Random Glucose 124 H Calcium 7.9 L Phosphorus 3.9 Magnesium 1.6 Total Bilirubin 2.0 H AST 90 H ALT 58 Alkaline Phosphatase 182 H Total Protein 6.2 L Albumin 2.6 L Globulin 3.6 Albumin/Globulin Ratio 0.7 L Lipase 314 H Stool Occult Blood Alcohol, Quantitative Blood Type Antibody Screen Crossmatch BBK History Checked Assessment & Plan - Assessment and Plan (Free Text) Assessment: Patient is a 52yo male with PMHx significant for decompensated EtOH cirrhosis s/ p TIPS (2014), severe esophagitis, upper GI bleeding with visible vessel at EGJ , epilepsy who presented to the ED with complaint of hematemesis and dark stool 1. Anemia 2. Hematemesis 3. Decompensated EtOH cirrhosis 4. Epilepsy with possible recent EtOH withdrawal seizures 5. S/P TIPS 6. LA Grade C esophagitis 7. Large external/internal hemorrhoids 8. EtOH abuse 9. Hx of GI bleed Plan: -Continue supportive care -Rectal exam with brown stool; no further hematemesis or melena since admission -S/P 2 units PRBCs; Hgb 8.9 -Monitor H/H -Remains hemodynamically stable -Continue PPI -LFTs likely a result of recent EtOH use -NPO -IV Rocephin with hx of cirrhosis and possible GI bleed -Annusol-HC suppository to treat hemorrhoids -Encourage EtOH cessation -Will plan for EGD today, consent signed and in chart -Further recommendations to follow EGD <Kali Berry - Last Filed: 10/15/17 19:45> Meds - Medications Medications: Current Medications Acetaminophen (Tylenol 650 Mg Supp) 650 mg SC Q6 PRN PRN Reason: Fever >100.4 F Acetaminophen (Tylenol 325mg Tab) 650 mg PO Q6 PRN PRN Reason: Pain, Mild (1-3) Ceftriaxone Sodium 1 gm/ (Sodium Chloride) 100 mls @ 100 mls/hr IVPB DAILY [facility] PRN Reason: Protocol Last Admin: 10/15/17 09:50 Dose: 100 mls/hr Sodium Chloride (Sodium Chloride 0.9%) 1,000 mls @ 125 mls/hr IV .Q8H [facility] Stop: 10/15/17 22:43 Last Admin: 10/14/17 23:15 Dose: 125 mls/hr Iron Sucrose 200 mg/ Sodium (Chloride) 110 mls @ 110 mls/hr IVPB DAILY [facility] Stop: 10/20/17 11:01 Last Admin: 10/15/17 14:30 Dose: 110 mls/hr Lactulose (Enulose) 20 gm PO BID [facility] Last Admin: 10/15/17 16:42 Dose: 20 gm Levetiracetam (Keppra) 500 mg PO BID [facility] Last Admin: 10/15/17 16:42 Dose: 500 mg Lorazepam (Ativan) 0.5 mg IVP Q8H PRN PRN Reason: Agitation Morphine Sulfate (Morphine) 2 mg IVP Q6 PRN PRN Reason: Pain, severe (8-10) Last Admin: 10/15/17 09:33 Dose: 2 mg Ondansetron HCl (Zofran Inj) 4 mg IVP Q6 PRN PRN Reason: Nausea/Vomiting Pantoprazole Sodium (Protonix Ec Tab) 40 mg PO BID [facility] Last Admin: 10/15/17 17:51 Dose: 40 mg Results - Vital Signs Recent Vital Signs: Last Vital Signs Temp 98.5 F 10/15/17 16:16 Pulse 77 10/15/17 16:16 Resp 20 10/15/17 16:16 BP 116/57 L 10/15/17 16:16 Pulse Ox 98 10/15/17 16:16 - Labs Result Diagrams: 10/15/17 08:05 10/15/17 08:05 Labs: Laboratory Results - last 24 hr 10/14/17 10/14/17 10/14/17 19:40 20:31 21:37 WBC 2.5 L RBC 2.26 L Hgb 6.4 L* Hct 20.0 L MCV 88.5 MCH 28.4 MCHC 32.1 L RDW 19.4 H Plt Count 69 L MPV Neut % (Auto) Lymph % (Auto) [place] % (Auto) Eos % (Auto) Baso % (Auto) Neut # (Auto) Lymph # (Auto) [place] # (Auto) Eos # (Auto) Baso # (Auto) PT INR APTT Sodium Potassium Chloride Carbon Dioxide Anion Gap BUN Creatinine Est GFR ( Amer) Est GFR (Non-Af Amer) Random Glucose Calcium Phosphorus Magnesium Total Bilirubin AST ALT Alkaline Phosphatase Ammonia Total Protein Albumin Globulin Albumin/Globulin Ratio Lipase Stool Occult Blood Negative Blood Type O POSITIVE Antibody Screen Negative Crossmatch See Detail BBK History Checked Patient has bt 10/15/17 10/15/17 10/15/17 08:05 08:05 08:05 WBC 3.3 L RBC 3.15 L Hgb 8.9 L D Hct 27.6 L MCV 87.7 MCH 28.3 MCHC 32.2 L RDW 18.2 H Plt Count 85 L MPV 7.5 Neut % (Auto) 57.0 Lymph % (Auto) 17.9 L [place] % (Auto) 14.4 H Eos % (Auto) 9.2 H Baso % (Auto) 1.5 Neut # (Auto) 1.9 Lymph # (Auto) 0.6 L [place] # (Auto) 0.5 Eos # (Auto) 0.3 Baso # (Auto) 0.0 PT 18.5 H INR 1.7 H APTT 39.6 H D Sodium 140 Potassium 4.6 Chloride 110 H Carbon Dioxide 21 L Anion Gap 14 BUN 15 Creatinine 0.8 Est GFR ( Amer) > 60 Est GFR (Non-Af Amer) > 60 Random Glucose 124 H Calcium 7.9 L Phosphorus 3.9 Magnesium 1.6 Total Bilirubin 2.0 H AST 90 H ALT 58 Alkaline Phosphatase 182 H Ammonia Total Protein 6.2 L Albumin 2.6 L Globulin 3.6 Albumin/Globulin Ratio 0.7 L Lipase 314 H Stool Occult Blood Blood Type Antibody Screen Crossmatch BBK History Checked 10/15/17 08:05 WBC RBC Hgb Hct MCV MCH MCHC RDW Plt Count MPV Neut % (Auto) Lymph % (Auto) [place] % (Auto) Eos % (Auto) Baso % (Auto) Neut # (Auto) Lymph # (Auto) [place] # (Auto) Eos # (Auto) Baso # (Auto) PT INR APTT Sodium Potassium Chloride Carbon Dioxide Anion Gap BUN Creatinine Est GFR ( Amer) Est GFR (Non-Af Amer) Random Glucose Calcium Phosphorus Magnesium Total Bilirubin AST ALT Alkaline Phosphatase Ammonia 149 H* D Total Protein Albumin Globulin Albumin/Globulin Ratio Lipase Stool Occult Blood Blood Type Antibody Screen Crossmatch BBK History Checked Attending/Attestation - Attestation I have personally seen and examined this patient.: Yes I have fully participated in the care of the patient.: Yes I have reviewed all pertinent clinical information: Yes Notes (Text): 10/15/17 10:45 52 year old male with h/o Etoh abuse, Cirrhosis s/p TIPS, admitted with possible GI bleeding. Recommend IV PPI. NPO for urgent egd today.
--- NOTE | 2017-10-15 10:30 | CARD ---
APPROVED REPORT EKG Measurement Heart [id number] OR [id number] <Conclusion> Normal sinus rhythm Prolonged QT Abnormal ECG
--- NOTE | 2017-10-15 10:59 | CP.PCM.CON ---
History of Present Illness - History of Present Illness History of Present Illness: 51 year old male with a history of alcoholic liver cirrhosis s/p TIPS, admitted with hematemesis, pancytopenia and coagulopathy. The patient reports to vomiting bright red blood. He has also been having seizures and is scheduled to see neurology. He does not to bleeding and bruising easily. He has required multiple blood product transfusions in the past. Past medical history: Alcoholic liver cirrhosis Past surgical history: Left finger surgery Family history: Denies hematologic and oncologic problems Social history: Denies tobacco, alcohol, and illicit drug use. Allergies: Aspirin Review of systems: All remaining review of systems including HEENT, cardiovascular, respiratory, gastrointestinal, genitourinary, musculoskeletal, dermatologic, neurologic, and psychiatric are negative unless mentioned in the HPI. Past Patient History - Infectious Disease Hx of Infectious Diseases: None - Tetanus Immunizations Tetanus Immunization: Unknown - Past Medical History & Family History Past Medical History?: Yes - Past Social History Smoking Status: Light Smoker < 10 Cigarettes Daily - CARDIAC Hx Cardiac Disorders: No - PULMONARY Hx Respiratory Disorders: No - NEUROLOGICAL Hx Seizures: Yes (Patient takes Keppra for seizures) - HEENT Hx HEENT Problems: No - RENAL Hx Chronic Kidney Disease: No - ENDOCRINE/METABOLIC Hx Endocrine Disorders: No - HEMATOLOGICAL/ONCOLOGICAL Hx AIDS: No Hx Anemia: Yes Hx Blood Transfusions: Yes Hx Human Immunodeficiency Virus (HIV): No - INTEGUMENTARY Hx Cellulitis: Yes - MUSCULOSKELETAL/RHEUMATOLOGICAL Hx Falls: Yes Hx Fractures: Yes (rib fx, left shoulder, Left hand 5th digit, Humerus fracture) - GASTROINTESTINAL Hx Gastritis: Yes Hx Pancreatitis: Yes - GENITOURINARY/GYNECOLOGICAL Hx Genitourinary Disorders: No - PSYCHIATRIC Hx Psychophysiologic Disorder: No Hx Substance Use: No (DENIES) - SURGICAL HISTORY Hx Surgeries: Yes Other/Comment: FINGER SX AND "STENT IN MY LIVER" - ANESTHESIA Hx Anesthesia: Yes Hx Anesthesia Reactions: No Hx Malignant Hyperthermia: No Has any member of the family had a problem w/ anesthesia?: No Meds Allergies/Adverse Reactions: Allergies Allergy/AdvReac Type Severity Reaction Status Date / Time aspirin Allergy NAUSEA Verified 10/14/17 18:09 ibuprofen [From Motrin] Allergy NAUSEA Verified 10/14/17 18:09 naproxen Allergy RASH Verified 10/14/17 18:09 NSAIDS (Non-Steroidal Allergy NAUSEA Verified 10/14/17 18:09 Anti-Inflamma - Medications Medications: Current Medications Acetaminophen (Tylenol 650 Mg Supp) 650 mg [place] Q6 PRN PRN Reason: Fever >100.4 F Octreotide Acetate 1,250 mcg/ (Sodium Chloride) 252.5 mls @ 50 mls/hr IV .Q5H3M JANNIE PRN Reason: Protocol Stop: 10/15/17 22:29 Last Admin: 10/15/17 08:15 Dose: 50 mls/hr Ceftriaxone Sodium 1 gm/ (Sodium Chloride) 100 mls @ 100 mls/hr IVPB DAILY JANNIE PRN Reason: Protocol Last Admin: 10/15/17 09:50 Dose: 100 mls/hr Sodium Chloride (Sodium Chloride 0.9%) 1,000 mls @ 125 mls/hr IV .Q8H [facility] Stop: 10/15/17 22:43 Last Admin: 10/14/17 23:15 Dose: 125 mls/hr Lactulose (Enulose) 20 gm PO DAILY PRN PRN Reason: Constipation Levetiracetam (Keppra) 500 mg PO BID [facility] Last Admin: 10/15/17 09:33 Dose: 500 mg Lorazepam (Ativan) 0.5 mg IVP Q8H PRN PRN Reason: Agitation Morphine Sulfate (Morphine) 2 mg IVP Q6 PRN PRN Reason: Pain, severe (8-10) Last Admin: 10/15/17 09:33 Dose: 2 mg Ondansetron HCl (Zofran Inj) 4 mg IVP Q6 PRN PRN Reason: Nausea/Vomiting Physical Exam - Head Exam Head Exam: ATRAUMATIC - Eye Exam Eye Exam: Normal appearance, Scleral icterus - ENT Exam ENT Exam: Mucous Membranes Dry - Respiratory Exam Respiratory Exam: NORMAL BREATHING PATTERN - Cardiovascular Exam Cardiovascular Exam: +S1, +S2 - GI/Abdominal Exam GI & Abdominal Exam: Normal Bowel Sounds - Extremities Exam Extremities exam: Positive for: pedal edema Results - Vital Signs Recent Vital Signs: Last Vital Signs Temp 98.2 F 10/15/17 08:00 Pulse 82 10/15/17 08:00 Resp 18 10/15/17 08:00 BP 126/68 10/15/17 08:00 Pulse Ox 98 10/15/17 08:00 - Labs Result Diagrams: 10/15/17 08:05 10/15/17 08:05 Labs: Laboratory Results - last 24 hr 10/14/17 10/14/17 10/14/17 19:05 19:05 19:05 WBC 2.8 L D RBC 2.31 L Hgb 6.5 L* D Hct 20.3 L MCV 88.0 D MCH 28.1 MCHC 31.9 L RDW 18.9 H Plt Count 74 L D MPV 7.4 Neut % (Auto) 51.3 Lymph % (Auto) 22.2 [place] % (Auto) 17.4 H Eos % (Auto) 7.0 H Baso % (Auto) 2.1 H Neut # (Auto) 1.4 L Lymph # (Auto) 0.6 L [place] # (Auto) 0.5 Eos # (Auto) 0.2 Baso # (Auto) 0.1 PT 19.4 H INR 1.7 H APTT 32.0 Sodium 136 Potassium 3.9 Chloride 104 Carbon Dioxide 20 L Anion Gap 16 BUN 22 H Creatinine 1.1 Est GFR ( Amer) > 60 Est GFR (Non-Af Amer) > 60 Random Glucose 104 Calcium 8.4 Phosphorus Magnesium Total Bilirubin 1.7 H AST 94 H ALT 64 Alkaline Phosphatase 180 H Ammonia Total Protein 6.2 L Albumin 2.7 L Globulin 3.6 Albumin/Globulin Ratio 0.7 L Lipase 389 H Stool Occult Blood Alcohol, Quantitative 20 H Blood Type Antibody Screen Crossmatch BBK History Checked 10/14/17 10/14/17 10/14/17 19:40 20:31 21:37 WBC 2.5 L RBC 2.26 L Hgb 6.4 L* Hct 20.0 L MCV 88.5 MCH 28.4 MCHC 32.1 L RDW 19.4 H Plt Count 69 L MPV Neut % (Auto) Lymph % (Auto) [place] % (Auto) Eos % (Auto) Baso % (Auto) Neut # (Auto) Lymph # (Auto) [place] # (Auto) Eos # (Auto) Baso # (Auto) PT INR APTT Sodium Potassium Chloride Carbon Dioxide Anion Gap BUN Creatinine Est GFR ( Amer) Est GFR (Non-Af Amer) Random Glucose Calcium Phosphorus Magnesium Total Bilirubin AST ALT Alkaline Phosphatase Ammonia Total Protein Albumin Globulin Albumin/Globulin Ratio Lipase Stool Occult Blood Negative Alcohol, Quantitative Blood Type O POSITIVE Antibody Screen Negative Crossmatch See Detail BBK History Checked Patient has bt 10/15/17 10/15/17 10/15/17 08:05 08:05 08:05 WBC 3.3 L RBC 3.15 L Hgb 8.9 L D Hct 27.6 L MCV 87.7 MCH 28.3 MCHC 32.2 L RDW 18.2 H Plt Count 85 L MPV 7.5 Neut % (Auto) 57.0 Lymph % (Auto) 17.9 L [place] % (Auto) 14.4 H Eos % (Auto) 9.2 H Baso % (Auto) 1.5 Neut # (Auto) 1.9 Lymph # (Auto) 0.6 L [place] # (Auto) 0.5 Eos # (Auto) 0.3 Baso # (Auto) 0.0 PT 18.5 H INR 1.7 H APTT 39.6 H D Sodium 140 Potassium 4.6 Chloride 110 H Carbon Dioxide 21 L Anion Gap 14 BUN 15 Creatinine 0.8 Est GFR ( Amer) > 60 Est GFR (Non-Af Amer) > 60 Random Glucose 124 H Calcium 7.9 L Phosphorus 3.9 Magnesium 1.6 Total Bilirubin 2.0 H AST 90 H ALT 58 Alkaline Phosphatase 182 H Ammonia Total Protein 6.2 L Albumin 2.6 L Globulin 3.6 Albumin/Globulin Ratio 0.7 L Lipase 314 H Stool Occult Blood Alcohol, Quantitative Blood Type Antibody Screen Crossmatch BBK History Checked 10/15/17 08:05 WBC RBC Hgb Hct MCV MCH MCHC RDW Plt Count MPV Neut % (Auto) Lymph % (Auto) [place] % (Auto) Eos % (Auto) Baso % (Auto) Neut # (Auto) Lymph # (Auto) [place] # (Auto) Eos # (Auto) Baso # (Auto) PT INR APTT Sodium Potassium Chloride Carbon Dioxide Anion Gap BUN Creatinine Est GFR ( Amer) Est GFR (Non-Af Amer) Random Glucose Calcium Phosphorus Magnesium Total Bilirubin AST ALT Alkaline Phosphatase Ammonia 149 H* D Total Protein Albumin Globulin Albumin/Globulin Ratio Lipase Stool Occult Blood Alcohol, Quantitative Blood Type Antibody Screen Crossmatch BBK History Checked Assessment & Plan (1) Pancytopenia Assessment and Plan: multifactorial liver disease, splenic sequestration, thrombopoietin dysregulation borderline iron stores, will give IV iron anemia of acute blood loss; GI evaluation for endoscopy transfusion support PRN Status: Chronic (2) Coagulopathy Assessment and Plan: liver disease will give a dose of vit k Status: Acute (3) Splenomegaly Assessment and Plan: secondary to portal HTN Thank you for this interesting consult. Status: Acute
[2017-10-15] MEDS ORDERED: Lactated Ringer's 500 ML IV ONE (11:05)
[2017-10-15] MEDS ORDERED: Sodium Chloride 0.9% 500 ML IV ONE (11:05)
[2017-10-15] MEDS ORDERED: Etomidate 20 mg/10ml Inj IV ONE (11:47)
[2017-10-15] MEDS ORDERED: Propofol 10 mg/ml Inj (20 ML) ONE (11:47)
[2017-10-15] MEDS: Pantoprazole 40 mg EC Tab PO SCH (17:51)
[2017-10-16 08:02] VITALS: BP 139/80; PULSE 80; RESP 20; TEMP 97.9; O2SAT 98
[2017-10-16 08:13] LABS: BASO # 0.1 K/uL (0.0-0.2); BASO % 1.5 % (0.0-2.0); EOS # 0.4 K/uL (0.0-0.7); EOS % 8.5 % (0.0-4.0); HEMOGLOBIN 9.9 g/dL (12.0-18.0); LYMPH % 19.4 % (20.0-40.0); MEAN CORPUSCULAR HEMOGLOBIN 28.7 pg (27.0-31.0); MEAN CORPUSCULAR HGB CONC 33.3 g/dL (33.0-37.0); MEAN PLATELET VOLUME 7.6 fl (7.2-11.7); MONO # 0.6 K/uL (0.0-0.8); MONO % 12.4 % (0.0-10.0); NEUT % 58.2 % (50.0-75.0); NRBC % 0.1 % (0.0-0.0); RBC 3.46 Mil/uL (4.40-5.90); RED CELL DISTRIBUTION WIDTH 17.8 % (11.5-14.5); WHITE BLOOD COUNT 5.2 K/uL (4.8-10.8)
--- NOTE | 2017-10-16 08:50 | CP.PCM.PN ---
<Edilma العراقي - Last Filed: 10/16/17 10:59> Subjective - Date & Time of Evaluation Date of Evaluation: 10/16/17 Time of Evaluation: 07:30 - Subjective Subjective: GI Fellow PGY 4 Progress Note Pt seen and evaluated at bedside, pt doing well with no complaints, denies any further episodes of hematemesis and melena/hematochezia. Pt tolerating regular diet, denies any hx of dm or gastroparesis, no issues with nausea or vomiting when eating meals. ROS: A 12pt ROS was negative except as above Objective - Vital Signs/Intake and Output Vital Signs (last 24 hours): Temp Pulse Resp BP Pulse Ox 97.9 F 80 20 139/80 98 10/16/17 08:01 10/16/17 08:01 10/16/17 08:01 10/16/17 08:01 10/16/17 08:01 - Medications Medications: Current Medications Acetaminophen (Tylenol 650 Mg Supp) 650 mg NE Q6 PRN PRN Reason: Fever >100.4 F Acetaminophen (Tylenol 325mg Tab) 650 mg PO Q6 PRN PRN Reason: Pain, Mild (1-3) Iron Sucrose 200 mg/ Sodium (Chloride) 110 mls @ 110 mls/hr IVPB DAILY [facility] Stop: 10/20/17 11:01 Last Admin: 10/15/17 14:30 Dose: 110 mls/hr Lactulose (Enulose) 20 gm PO BID [facility] Last Admin: 10/15/17 16:42 Dose: 20 gm Levetiracetam (Keppra) 500 mg PO BID [facility] Last Admin: 10/15/17 16:42 Dose: 500 mg Lorazepam (Ativan) 0.5 mg IVP Q8H PRN PRN Reason: Agitation Morphine Sulfate (Morphine) 2 mg IVP Q6 PRN PRN Reason: Pain, severe (8-10) Last Admin: 10/15/17 22:36 Dose: 2 mg Ondansetron HCl (Zofran Inj) 4 mg IVP Q6 PRN PRN Reason: Nausea/Vomiting Pantoprazole Sodium (Protonix Ec Tab) 40 mg PO BID [facility] Last Admin: 10/15/17 17:51 Dose: 40 mg - Labs Labs: 10/16/17 06:30 10/15/17 08:05 PT 18.5 Seconds (9.8-13.1) H 10/15/17 08:05 INR 1.7 (0.9-1.2) H 10/15/17 08:05 APTT 39.6 Seconds (25.6-37.1) H D 10/15/17 08:05 - Constitutional Appears: Non-toxic, No Acute Distress - Head Exam Head Exam: ATRAUMATIC, NORMAL INSPECTION, NORMOCEPHALIC - Eye Exam Eye Exam: EOMI, PERRL Pupil Exam: PERRL - ENT Exam ENT Exam: Mucous Membranes Moist - Neck Exam Neck Exam: Full ROM - Respiratory Exam Respiratory Exam: Clear to Ausculation Bilateral, NORMAL BREATHING PATTERN - Cardiovascular Exam Cardiovascular Exam: REGULAR RHYTHM, +S1, +S2 - GI/Abdominal Exam GI & Abdominal Exam: Soft, Normal Bowel Sounds. absent: Distended, Tenderness, Organomegaly - Rectal Exam Rectal Exam: Deferred - Extremities Exam Extremities Exam: Full ROM, Normal Inspection - Back Exam Back Exam: NORMAL INSPECTION - Neurological Exam Neurological Exam: Alert, Awake, Oriented x3 - Psychiatric Exam Psychiatric exam: Normal Affect, Normal Mood - Skin Skin Exam: Normal Color, Warm Assessment and Plan - Assessment and Plan (Free Text) Assessment: Assessment: Patient is a 52yo male with PMHx significant for decompensated EtOH cirrhosis s/ p TIPS (2014), severe esophagitis, upper GI bleeding with visible vessel at EGJ , epilepsy who presented to the ED with complaint of hematemesis and dark stool 1. Anemia 2. Hematemesis 3. Decompensated EtOH cirrhosis 4. Epilepsy with possible recent EtOH withdrawal seizures 5. S/P TIPS 6. LA Grade C esophagitis 7. Large external/internal hemorrhoids 8. EtOH abuse 9. Hx of GI bleed 10. Esophageal Ulcer clean based s/p EGD 11. Possible Gastroparesis ? Plan: -Continue supportive care -Rectal exam with brown stool; no further hematemesis or melena since admission -Anemia S/P 2 units PRBCs; Hgb 9.9 from 6.5 on admission -s/p EGD with Esophagal ulcer, clean based no active bleeding, biopsy with path pending -Alot of food in stomach with no peristalsis concern for possible gastroparesis , will need outpt workup with gastric emptying study off pain medication, pt is currently getting morphine in the hospital, Hgb A1c from 03/2017 was 3.8 -PPI po one tab daily -LFTs likely a result of recent EtOH use -Annusol-HC suppository to treat hemorrhoids -Encouraged EtOH cessation -Pt okay for discharge home with outpt follow up with GI and PCP <Gurpreet Germain - Last Filed: 10/16/17 11:03> Objective - Vital Signs/Intake and Output Vital Signs (last 24 hours): Temp Pulse Resp BP Pulse Ox 97.9 F 80 20 139/80 98 10/16/17 08:01 10/16/17 08:01 10/16/17 08:01 10/16/17 08:01 10/16/17 08:01 - Medications Medications: Current Medications Acetaminophen (Tylenol 650 Mg Supp) 650 mg NE Q6 PRN PRN Reason: Fever >100.4 F Acetaminophen (Tylenol 325mg Tab) 650 mg PO Q6 PRN PRN Reason: Pain, Mild (1-3) Iron Sucrose 200 mg/ Sodium (Chloride) 110 mls @ 110 mls/hr IVPB DAILY [facility] Stop: 10/20/17 11:01 Last Admin: 10/15/17 14:30 Dose: 110 mls/hr Levetiracetam (Keppra) 500 mg PO BID [facility] Last Admin: 10/16/17 08:57 Dose: 500 mg Lorazepam (Ativan) 0.5 mg IVP Q8H PRN PRN Reason: Agitation Morphine Sulfate (Morphine) 2 mg IVP Q6 PRN PRN Reason: Pain, severe (8-10) Last Admin: 10/15/17 22:36 Dose: 2 mg Ondansetron HCl (Zofran Inj) 4 mg IVP Q6 PRN PRN Reason: Nausea/Vomiting Pantoprazole Sodium (Protonix Ec Tab) 40 mg PO BID [facility] Last Admin: 10/16/17 08:57 Dose: 40 mg - Labs Labs: 10/16/17 06:30 10/15/17 08:05 PT 18.5 Seconds (9.8-13.1) H 10/15/17 08:05 INR 1.7 (0.9-1.2) H 10/15/17 08:05 APTT 39.6 Seconds (25.6-37.1) H D 10/15/17 08:05 Attending/Attestation - Attestation I have personally seen and examined this patient.: Yes I have fully participated in the care of the patient.: Yes I have reviewed all pertinent clinical information, including history, physical exam and plan: Yes Notes (Text): 10/16/17 11:01 I have seen and examined patient with GI fellow. No acute events overnight, he is seen resting in bed comfortably. He denies abdominal pain, nausea, vomiting , fever/chills. Tolerating PO diet without difficulty. Review of vitals from today are normal. ETOH decompensated cirrhosis, s/p TIPS Epilepsy Anemia, s/p EGD showing esophageal ulcer, retained food content - H/H stable, continue to monitor - Continue with PPI therapy - Await EGD biopsy results - ETOH cessation counseling - No further planned GI interventions, will sign off case. Please reconsult as necessary, thank you.
[2017-10-16] MEDS: Pantoprazole 40 mg EC Tab PO SCH (08:57)
--- NOTE | 2017-10-16 10:54 | CP.PCM.DIS ---
Provider - Provider Date of Admission: 10/14/17 21:06 Attending physician: Chanelle Rowe MD Consults: GI: Dr Kali Berry Heme/onco: Dr Placido Mack Time Spent in preparation of Discharge (in minutes): 30 Diagnosis - Discharge Diagnosis (1) Upper GI hemorrhage Status: Resolved (2) Pancytopenia Status: Acute (3) Liver cirrhosis, alcoholic Status: Chronic Priority: High (4) Chronic alcohol abuse Status: Chronic Priority: High (5) History of seizure Status: Chronic Hospital Course - Lab Results Lab Results: Most Recent Lab Values WBC 5.2 K/uL (4.8-10.8) D 10/16/17 06:30 RBC 3.46 Mil/uL (4.40-5.90) L 10/16/17 06:30 Hgb 9.9 g/dL (12.0-18.0) L 10/16/17 06:30 Hct 29.7 % (35.0-51.0) L 10/16/17 06:30 MCV 86.0 fl (80.0-94.0) 10/16/17 06:30 MCH 28.7 pg (27.0-31.0) 10/16/17 06:30 MCHC 33.3 g/dL (33.0-37.0) 10/16/17 06:30 RDW 17.8 % (11.5-14.5) H 10/16/17 06:30 Plt Count 116 K/uL (130-400) L D 10/16/17 06:30 MPV 7.6 fl (7.2-11.7) 10/16/17 06:30 Neut % (Auto) 58.2 % (50.0-75.0) 10/16/17 06:30 Lymph % (Auto) 19.4 % (20.0-40.0) L 10/16/17 06:30 Aurora % (Auto) 12.4 % (0.0-10.0) H 10/16/17 06:30 Eos % (Auto) 8.5 % (0.0-4.0) H 10/16/17 06:30 Baso % (Auto) 1.5 % (0.0-2.0) 10/16/17 06:30 Neut # (Auto) 3.0 K/uL (1.8-7.0) 10/16/17 06:30 Lymph # (Auto) 1.0 K/uL (1.0-4.3) 10/16/17 06:30 Aurora # (Auto) 0.6 K/uL (0.0-0.8) 10/16/17 06:30 Eos # (Auto) 0.4 K/uL (0.0-0.7) 10/16/17 06:30 Baso # (Auto) 0.1 K/uL (0.0-0.2) 10/16/17 06:30 PT 18.5 Seconds (9.8-13.1) H 10/15/17 08:05 INR 1.7 (0.9-1.2) H 10/15/17 08:05 APTT 39.6 Seconds (25.6-37.1) H D 10/15/17 08:05 Sodium 140 mmol/l (132-148) 10/15/17 08:05 Potassium 4.6 MMOL/L (3.6-5.0) 10/15/17 08:05 Chloride 110 mmol/L (98-107) H 10/15/17 08:05 Carbon Dioxide 21 mmol/L (22-30) L 10/15/17 08:05 Anion Gap 14 (10-20) 10/15/17 08:05 BUN 15 mg/dl (9-20) 10/15/17 08:05 Creatinine 0.8 mg/dl (0.8-1.5) 10/15/17 08:05 Est GFR ( Amer) > 60 10/15/17 08:05 Est GFR (Non-Af Amer) > 60 10/15/17 08:05 Random Glucose 124 mg/dL (75-110) H 10/15/17 08:05 Calcium 7.9 mg/dL (8.4-10.2) L 10/15/17 08:05 Phosphorus 3.9 mg/dl (2.5-4.5) 10/15/17 08:05 Magnesium 1.6 MG/DL (1.6-2.3) 10/15/17 08:05 Total Bilirubin 2.0 mg/dl (0.2-1.3) H 10/15/17 08:05 AST 90 U/L (17-59) H 10/15/17 08:05 ALT 58 U/L (21-72) 10/15/17 08:05 Alkaline Phosphatase 182 U/L (38-126) H 10/15/17 08:05 Ammonia 149 umo/L (16-60) H* D 10/15/17 08:05 Total Protein 6.2 G/DL (6.3-8.2) L 10/15/17 08:05 Albumin 2.6 g/dL (3.5-5.0) L 10/15/17 08:05 Globulin 3.6 gm/dL (2.2-3.9) 10/15/17 08:05 Albumin/Globulin Ratio 0.7 (1.0-2.1) L 10/15/17 08:05 Lipase 314 U/L (23-300) H 10/15/17 08:05 Stool Occult Blood Negative (NEGATIVE) 10/14/17 20:31 Alcohol, Quantitative 20 mg/dl (0-10) H 10/14/17 19:05 Blood Type O POSITIVE 10/14/17 19:40 Antibody Screen Negative 10/14/17 19:40 Crossmatch See Detail 10/14/17 19:40 BBK History Checked Patient has bt 10/14/17 19:40 - Hospital Course Hospital Course: 52 yo m, PMhx/o for withdrawal Seizures, ETOH Abuse, Hepatic encephalopathy, Pancytopenia, Alcohol Liver Cirrhosis with TIPs admitted due to upper Gi bleeding, patient had multiple admissions with same complaint. During admission GI and Heme/onco were on board, patient received 2 units of PRBC due to severe anemia and pancytopenia CBC at discharge 5.2<9.9/29.7>116. Patient underwent EGD showing esophageal ulcer, retained food content, no active bleeding appreciated, no further planned GI interventions. Patient stable at discharge time, patient with instructions to f/u at [facility] and also with Primary GI Dr Sawant. Patient provide with home medications Omeprazol, keppra, and annusol. Discharge Exam - Head Exam Head Exam: NORMAL INSPECTION - Eye Exam Eye Exam: EOMI, PERRL - ENT Exam ENT Exam: Mucous Membranes Moist - Respiratory Exam Respiratory Exam: Clear to PA & Lateral, NORMAL BREATHING PATTERN - Cardiovascular Exam Cardiovascular Exam: REGULAR RHYTHM, +S1, +S2. absent: Tachycardia - GI/Abdominal Exam GI & Abdominal Exam: Normal Bowel Sounds, Soft. absent: Distended, Tenderness - Psychiatric Exam Psychiatric exam: Normal Mood - Skin Skin Exam: Dry, Warm Discharge Plan - Discharge Medications Prescriptions: levETIRAcetam [Keppra] 500 mg PO BID 30 Days #60 tab Omeprazole 40 mg PO DAILY 30 Days #30 capsule.dr - Follow Up Plan Condition: FAIR Disposition: HOME/ ROUTINE Patient education suggested?: Yes Instructions: Gastrointestinal Bleeding (DC), Cirrhosis (DC), Alcohol Abuse and Alcoholism (DC) Additional Instructions: F/U appt at [facility], patient will receive a call from Jacquie timmons confirm the appt F/U with Dr Sawant in 1 week Take Protonix 30 min before breakfast. Avoid aspirin or other NSAID meds. Encouraged alcohol cessation. ER precautions give. Referrals: [facility] [place] [Outside] Gage Bradley MD [Medical Doctor] -
== END 2017-10-16 12:13 | disposition home or self-care (01) | DRG 557 ==
LOC: H.ER 17:57 → H.ERHOLD 21:06 → H.TEL 22:58
PROVIDERS: ADMIT Family Medicine Geriatric Medicine; ATTEND Family Medicine Geriatric Medicine
DX: K70.30 Alcoholic cirrhosis of liver without ascites (principal); I82.409 Acute embolism and thrombosis of unspecified deep veins of unspecified lower extremity; D61.818 Other pancytopenia; K92.0 Hematemesis; K29.70 Gastritis, unspecified, without bleeding; G40.909 Epilepsy, unspecified, not intractable, without status epilepticus; G89.29 Other chronic pain; D73.1 Hypersplenism; D68.9 Coagulation defect, unspecified; F10.10 Alcohol abuse, uncomplicated; K76.6 Portal hypertension; K64.8 Other hemorrhoids; K22.10 Ulcer of esophagus without bleeding; Z80.3 Family history of malignant neoplasm of breast; Z80.0 Family history of malignant neoplasm of digestive organs; Z79.899 Other long term (current) drug therapy

== ENCOUNTER 2017-10-16 14:24 | Emergency (ER) | payer MEDICAID ==
[2017-10-16 14:24] VITALS: BMI 23.7
[2017-10-16 14:38] VITALS: TEMP 98; O2SAT 99
--- NOTE | 2017-10-16 16:13 | ED PDOC ---
HPI: Headache Time Seen by Provider: 10/16/17 14:42 Chief Complaint (Nursing): Headache Chief Complaint (Provider): Headache History Per: Patient History/Exam Limitations: no limitations Onset/Duration Of Symptoms: Days (10/16/17) Additional Complaint(s): 52 year old male presents to the ED complaining of mild headache. Patient was discharged from the [facility] earlier. Otherwise: (-) dizziness, (-) fever, (-) chest pain, (-) shortness of breath, (-) nausea, (-) vomiting, (-) abdominal pain, (-) any other complaints. Past Medical History Reviewed: Historical Data, Nursing Documentation, Vital Signs Vital Signs: Last Vital Signs Temp 98 F 10/16/17 14:36 Pulse 106 H 10/16/17 14:36 Resp 18 10/16/17 14:36 BP 115/71 10/16/17 14:36 Pulse Ox 99 10/16/17 14:36 - Medical History PMH: Anemia, Back Problems (herniated disc), Deep Vein Thrombosis, Fractures ( rib fx, left shoulder, Left hand 5th digit, Humerus fracture), Gastritis, Pancreatitis, Seizures (Patient takes Keppra for seizures), Chronic Pain (left shoulder) Denies: HIV, Chronic Kidney Disease - Surgical History Surgical History: Endoscopy - Family History Family History: States: Unknown Family Hx - Social History Current smoker - smoking cessation education provided: Yes (Light Smoker < 10 Cigarettes Daily) Alcohol: Social Drugs: Denies - Home Medications Home Medications: Ambulatory Orders Medication Instructions Recorded Omeprazole 40 mg PO DAILY 30 Days #30 10/16/17 nichole. levETIRAcetam [Keppra] 500 mg PO BID 30 Days #60 tab 10/16/17 - Allergies Allergies/Adverse Reactions: Allergies Allergy/AdvReac Type Severity Reaction Status Date / Time aspirin Allergy NAUSEA Verified 10/14/17 18:09 ibuprofen [From Motrin] Allergy NAUSEA Verified 10/14/17 18:09 naproxen Allergy RASH Verified 10/14/17 18:09 NSAIDS (Non-Steroidal Allergy NAUSEA Verified 10/14/17 18:09 Anti-Inflamma Review of Systems ROS Statement: Except As Marked, All Systems Reviewed And Found Negative Constitutional: Negative for: Fever Cardiovascular: Negative for: Chest Pain Respiratory: Negative for: Shortness of Breath Gastrointestinal: Negative for: Nausea, Vomiting, Abdominal Pain Neurological: Positive for: Headache. Negative for: Dizziness Physical Exam - Physical Exam Comments: GENERAL APPEARANCE: Patient is awake, alert, oriented x 3, in no acute distress. SKIN: Warm, dry; (-) cyanosis; (-) rash. HEAD: Normocephalic, atraumatic. EYES: (-) conjunctival pallor, (-) scleral icterus. ENMT: Mucous membranes are moist. NECK: (-) tenderness, (-) stiffness, (-) lymphadenopathy. CHEST AND RESPIRATORY: (-) rales, (-) rhonchi, (-) wheezes; breath sounds equal bilaterally. HEART AND CARDIOVASCULAR: (-) irregularity; (-) murmur, (-) gallop. ABDOMEN AND GI: Soft; (-) tenderness. EXTREMITIES: (-) deformity, (+) FROM. NEURO AND PSYCH: Mental status as above. 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 Strength symmetric. - ECG O2 Sat by Pulse Oximetry: 99 (RA) Pulse Ox Interpretation: Normal Medical Decision Making Medical Decision Making: Time: 1504 Initial Plan: --Reglan 10mg --Reevaluation Previous medical records reviewed, patient was admitted on 10/14/17 for upper GI bleed, chronic anemia - his hemoglobin on admission was 6.5 and received 2 units of packed RBC transfusion. During his admission, GI was consulted for his alcoholic liver cirrhosis. It was also noted that the patient had pancytopenia likely secondary to splenomegaly and liver cirrhosis, his platelet count on admission was 74. Upon d/c earlier today, patient's Hgb 9.9, plt 116. Patient was given Reglan for headache. Upon reevaluation, patient remains AAOx3 , answering questions appropriately, not confused, can ambulate with steady gait. Speaking full sentences without slurred speech or tremors. Eating chips and requesting for sandwich in ED. VS normal. Otherwise, patient is stable for discharge and outpatient follow up, advised to follow-up in clinic. Advised to follow up with the clinic in 1-2 days without fail. Return to the emergency room at any time for any new or worsening symptoms. Patient states he fully agrees with and understands discharge instructions. States that he agrees with the plan and disposition. Verbalized and repeated discharge instructions and plan. I have given the patient opportunity to ask any additional questions. Scribe Attestation: Documented by Jean Claude Whitmore, acting as a scribe for Margie Engel PA-C Provider Scribe Attestation: All medical record entries made by the Scribe were at my direction and personally dictated by me. I have reviewed the chart and agree that the record accurately reflects my personal performance of the history, physical exam, medical decision making, and the department course for this patient. I have also personally directed, reviewed, and agree with the discharge instructions and disposition. Disposition - Clinical Impression Clinical Impression: Headache - Patient ED Disposition Is Patient to be Admitted: No Counseled Patient/Family Regarding: Need For Followup - Disposition Referrals: [facility] [Outside] Disposition: Routine/Home Disposition Time: 15:00 Condition: STABLE Instructions: Headache, Adult Forms: [employer] (Icelandic) - PA / CROP PICKER / Resident Statement MADISON has reviewed & agrees with the documentation as recorded.
[2017-10-16 16:41] VITALS: BP 131/78; PULSE 89; RESP 15
== END 2017-10-16 15:34 | disposition home or self-care (01) ==
LOC: H.ER 14:24
DX: R51 Headache (principal); G89.29 Other chronic pain; Z88.6 Allergy status to analgesic agent

== ENCOUNTER 2017-10-17 07:08 | Emergency (ER) | payer MEDICAID ==
[2017-10-17 07:08] VITALS: BMI 23.7
[2017-10-17 07:21] VITALS: RESP 18
[2017-10-17] MEDS ORDERED: Sodium Chloride 0.9% 1,000 ML IV STA (07:35)
--- NOTE | 2017-10-17 07:40 | ED PDOC ---
HPI: General Adult Time Seen by Provider: 10/17/17 07:21 Chief Complaint (Nursing): GI Problem Chief Complaint (Provider): Vomit blood History Per: Patient History/Exam Limitations: no limitations Onset/Duration Of Symptoms: Days (today) Additional Complaint(s): Pt. had 1 episode of bloody vomit so came to the ER. No abd pain, weakness, headaches, dizziness, chest pain, dyspnea, fever, cough, headaches. No seizure today. No etoh or drugs. Had vomiting blood few weeks ago and needed a transfusion. Past Medical History Reviewed: Nursing Documentation, Vital Signs Vital Signs: Last Vital Signs Temp 99.1 F 10/17/17 07:20 Pulse 109 H 10/17/17 07:20 Resp 18 10/17/17 07:20 BP 126/70 10/17/17 07:20 Pulse Ox 100 10/17/17 10:35 - Medical History PMH: Anemia, Back Problems (herniated disc), Deep Vein Thrombosis, Fractures ( rib fx, left shoulder, Left hand 5th digit, Humerus fracture), Gastritis, Pancreatitis, Seizures (Patient takes Keppra for seizures), Chronic Pain (left shoulder) Denies: HIV, Chronic Kidney Disease - Surgical History Surgical History: Endoscopy - Family History Family History: States: Unknown Family Hx - Living Arrangements Living Arrangements: With Family - Social History Alcohol: None Drugs: Denies - Home Medications Home Medications: Ambulatory Orders Medication Instructions Recorded Omeprazole 40 mg PO DAILY 30 Days #30 10/16/17 capsule. levETIRAcetam [Keppra] 500 mg PO BID 30 Days #60 tab 10/16/17 Famotidine [Pepcid] 20 mg PO DAILY PRN #6 tab 10/17/17 - Allergies Allergies/Adverse Reactions: Allergies Allergy/AdvReac Type Severity Reaction Status Date / Time aspirin Allergy NAUSEA Verified 10/14/17 18:09 ibuprofen [From Motrin] Allergy NAUSEA Verified 10/14/17 18:09 naproxen Allergy RASH Verified 10/14/17 18:09 NSAIDS (Non-Steroidal Allergy NAUSEA Verified 10/17/17 07:20 Anti-Inflamma Review of Systems ROS Statement: Except As Marked, All Systems Reviewed And Found Negative Gastrointestinal: Positive for: Nausea, Vomiting, Hematemesis Physical Exam - Reviewed Nursing Documentation Reviewed: Yes Vital Signs Reviewed: Yes - Physical Exam Appears: Positive for: Non-toxic, No Acute Distress Head Exam: Positive for: ATRAUMATIC, NORMAL INSPECTION, NORMOCEPHALIC Skin: Positive for: Normal Color, Warm, DRY Eye Exam: Positive for: EOMI, Normal appearance, PERRL ENT: Positive for: Normal ENT Inspection Neck: Positive for: Normal, Painless ROM Cardiovascular/Chest: Positive for: Regular Rate, Rhythm Respiratory: Positive for: CNT, Normal Breath Sounds Gastrointestinal/Abdominal: Positive for: Normal Exam, Soft. Negative for: Tenderness Back: Positive for: Normal Inspection. Negative for: L CVA Tenderness, R CVA Tenderness Extremity: Positive for: Normal ROM. Negative for: Tenderness, Pedal Edema Neurologic/Psych: Positive for: Alert, forensic nurse II-XII, Oriented. Negative for: Motor/Sensory Deficits - Laboratory Results Result Diagrams: 10/17/17 07:49 10/17/17 08:49 Interpretation Of Abn Labs: 9.8 and similar to old - ECG ECG: Positive for: Interpreted By Me, Viewed By Me ECG Rhythm: Positive for: Normal QRS, Normal ST Segment, Sinus Rhythm O2 Sat by Pulse Oximetry: 100 Pulse Ox Interpretation: Normal - Progress ED Course And Treament: On GI bleed visit pt. got 2 units of PRBC due to severe anemia and pancytopenia and CBC at discharge 5.2<9.9/29.7>116. Patient underwent EGD showing esophageal ulcer, retained food content, no active bleeding appreciated, no further planned GI interventions. 1036: Stable. AAOx3. HG stable. No new episodes of bleeding. Will dc. Fu with pcp. No pain. Ambulated with no issues. Disposition - Clinical Impression Clinical Impression: Bloody vomitus - Patient ED Disposition Is Patient to be Admitted: No Counseled Patient/Family Regarding: Studies Performed, Diagnosis, Need For Followup - Disposition Referrals: [facility] [Outside] - 10/18/17 Disposition: Routine/Home Disposition Time: 10:38 Condition: STABLE Additional Instructions: Return if not better in 3 days. Prescriptions: Famotidine [Pepcid] 20 mg PO DAILY PRN #6 tab PRN Reason: Pain Instructions: Gastrointestinal Bleeding (DC)
[2017-10-17 09:14] LABS: INR 1.7 (0.9-1.2); PARTIAL THROMBOPLASTIN TIME 39.1 Seconds (25.6-37.1); PROTHROMBIN TIME 19.4 Seconds (9.8-13.1)
[2017-10-17 09:15] LABS: BASO % 0.8 % (0.0-2.0); EOS # 0.4 K/uL (0.0-0.7); EOS % 6.9 % (0.0-4.0); HEMOGLOBIN 9.8 g/dL (12.0-18.0); LYMPH # 0.8 K/uL (1.0-4.3); LYMPH % 13.6 % (20.0-40.0); MEAN CELL VOLUME 86.9 fl (80.0-94.0); MEAN CORPUSCULAR HEMOGLOBIN 28.3 pg (27.0-31.0); MEAN CORPUSCULAR HGB CONC 32.6 g/dL (33.0-37.0); MEAN PLATELET VOLUME 7.7 fl (7.2-11.7); MONO # 0.6 K/uL (0.0-0.8); MONO % 11.1 % (0.0-10.0); NEUT # 3.8 K/uL (1.8-7.0); NEUT % 67.6 % (50.0-75.0); NRBC % 0.1 % (0.0-0.0); RBC 3.46 Mil/uL (4.40-5.90); WHITE BLOOD COUNT 5.6 K/uL (4.8-10.8)
[2017-10-17 09:21] LABS: ALB/GLOB RATIO 0.7 (1.0-2.1); ALBUMIN 2.9 g/dL (3.5-5.0); ALT/SGPT 68 U/L (21-72); AST/SGOT 99 U/L (17-59); BLOOD UREA NITROGEN 13 mg/dl (9-20); CALCIUM 8.2 mg/dL (8.4-10.2); GFR AFRICAN-AMERICAN > 60; GFR NON-AFRICAN AMERICAN > 60
[2017-10-17 11:15] VITALS: BP 132/71; PULSE 76; TEMP 98; O2SAT 98
--- NOTE | 2017-10-18 09:19 | CARD ---
APPROVED REPORT EKG Measurement Heart [id number] <Conclusion> Normal sinus rhythm Possible Left atrial enlargement
== END 2017-10-17 11:30 | disposition home or self-care (01) ==
LOC: H.ER 07:08
DX: K92.0 Hematemesis (principal); G89.29 Other chronic pain; Z86.718 Personal history of other venous thrombosis and embolism; Z88.6 Allergy status to analgesic agent; K85.90 Acute pancreatitis without necrosis or infection, unspecified
CPT/HCPCS: 80053; 80320; 84484; 85025; 85610; 85730; 86850; 86900; 93005; 96361; 96374; 99283; J7040

== ENCOUNTER 2017-10-18 06:11 | Emergency (ER) | payer MEDICAID ==
[2017-10-18 06:11] VITALS: BMI 23.7
[2017-10-18 06:26] VITALS: BP 134/67; PULSE 107; RESP 18; TEMP 98.8; O2SAT 97
--- NOTE | 2017-10-18 06:59 | ED PDOC ---
Lower Extremity Pain/Injury Time Seen by Provider: 10/18/17 06:15 Chief Complaint (Nursing): Lower Extremity Problem/Injury Chief Complaint (Provider): Lower Extremity Probleme History Per: Patient History/Exam Limitations: no limitations Onset/Duration Of Symptoms: Persistent Current Symptoms Are (Timing): Still Present Additional Complaint(s): 52 year old male presents to ED with complaints of left leg pain and has a past medical history of liver cirrhosis, alcohol abuse, and alcohol-withdrawal seizures. (+) headache. Patient notes that he has experienced this pain before. PCP: Terrance Past Medical History Reviewed: Historical Data, Nursing Documentation, Vital Signs Vital Signs: Last Vital Signs Temp 98.8 F 10/18/17 06:23 Pulse 107 H 10/18/17 06:23 Resp 18 10/18/17 06:23 BP 134/67 10/18/17 06:23 Pulse Ox 97 10/18/17 06:23 - Medical History PMH: Anemia, Back Problems (herniated disc), Deep Vein Thrombosis, Fractures ( rib fx, left shoulder, Left hand 5th digit, Humerus fracture), Gastritis, Pancreatitis, Seizures (Patient takes Keppra for seizures), Chronic Pain (left shoulder) Denies: HIV, Chronic Kidney Disease - Surgical History Surgical History: Endoscopy - Family History Family History: States: Unknown Family Hx - Social History Alcohol: > 2 Drinks/Day - Home Medications Home Medications: Ambulatory Orders Medication Instructions Recorded Omeprazole 40 mg PO DAILY 30 Days #30 10/16/17 capsule. levETIRAcetam [Keppra] 500 mg PO BID 30 Days #60 tab 10/16/17 Famotidine [Pepcid] 20 mg PO DAILY PRN #6 tab 10/17/17 Sulfamethoxazole/Trimethoprim 1 tab PO BID #14 tab 10/18/17 [Bactrim DS 800 mg-160 mg] - Allergies Allergies/Adverse Reactions: Allergies Allergy/AdvReac Type Severity Reaction Status Date / Time aspirin Allergy NAUSEA Verified 10/14/17 18:09 ibuprofen [From Motrin] Allergy NAUSEA Verified 10/14/17 18:09 naproxen Allergy RASH Verified 10/14/17 18:09 NSAIDS (Non-Steroidal Allergy NAUSEA Verified 10/17/17 07:20 Anti-Inflamma Review of Systems ROS Statement: Except As Marked, All Systems Reviewed And Found Negative Musculoskeletal: Positive for: Leg Pain (left leg pain) Neurological: Positive for: Headache Physical Exam - Reviewed Nursing Documentation Reviewed: Yes Vital Signs Reviewed: Yes - Physical Exam Appears: Positive for: Non-toxic, No Acute Distress Skin: Positive for: Normal Color, Warm, Dry Eye Exam: Positive for: Normal appearance ENT: Positive for: Normal ENT Inspection Neck: Positive for: Normal, Painless ROM, Supple Cardiovascular/Chest: Positive for: Regular Rate, Rhythm. Negative for: Murmur Respiratory: Positive for: Normal Breath Sounds. Negative for: Respiratory Distress Gastrointestinal/Abdominal: Positive for: Soft. Negative for: Tenderness Extremity: Positive for: Normal ROM, Other ((+) several blisters on the ball of the left foot with small amounts of thin, yellow discharge). Negative for: Deformity Neurologic/Psych: Positive for: Alert, Oriented. Negative for: Motor/Sensory Deficits - ECG O2 Sat by Pulse Oximetry: 97 (RA) Pulse Ox Interpretation: Normal Medical Decision Making Medical Decision Makin Initial impression: Initial plan: * Labs * Acetaminophen 650mg PO * XR FOOT LEFT * Re-eval * podiatry resident called, made aware of case, will come see pt. Of note, patient asked for morphine but the provider declined, offering acetaminophen instead. [id number] Patient has left before treatment complete Scribe Attestation: Documented by Fallon Calderon acting as a scribe for Amanda Washington MD. Scribe Attestation: All medical record entries made by the Scribe were at my direction and personally dictated by me. I have reviewed the chart and agree that the record accurately reflects my personal performance of the history, physical exam, medical decision making, and the department course for this patient. I have also personally directed, reviewed, and agree with the discharge instructions and disposition. Disposition - Clinical Impression Clinical Impression: Foot pain - Patient ED Disposition Is Patient to be Admitted: No Counseled Patient/Family Regarding: Studies Performed, Diagnosis - Disposition Disposition: Left W/O Treatment Disposition Time: 07:04 Condition: FAIR Forms: [facility] ([place])
== END 2017-10-18 07:09 | disposition left against medical advice (07) ==
LOC: H.ER 06:11
DX: M79.672 Pain in left foot (principal); S90.822A Blister (nonthermal), left foot, initial encounter; G89.29 Other chronic pain; Z86.718 Personal history of other venous thrombosis and embolism; Z88.6 Allergy status to analgesic agent

== ENCOUNTER 2017-10-18 09:15 | Emergency (ER) | payer MEDICAID ==
[2017-10-18 09:15] VITALS: BMI 23.7
[2017-10-18 09:20] VITALS: O2SAT 98
--- NOTE | 2017-10-18 11:33 | RAD ---
PROCEDURE: Left Foot Radiographs. HISTORY: L foot pain COMPARISON: 06/25/2016. FINDINGS: BONES: Bone alignment is normal. There is no acute displaced fracture or bone destruction. There is mild periarticular bone demineralization. JOINTS: Normal. SOFT TISSUES: Normal. OTHER FINDINGS: None. IMPRESSION: No acute fracture or dislocation.
--- NOTE | 2017-10-18 12:48 | ED PDOC ---
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 Denies trauma or injury, fever or edema. +redness Past Medical History Reviewed: Historical Data, Nursing Documentation, Vital Signs Vital Signs: Last Vital Signs Temp 97.5 F L 10/18/17 09:19 Pulse 80 10/18/17 09:19 Resp 19 10/18/17 09:19 BP 133/74 10/18/17 09:19 Pulse Ox 98 10/18/17 09:19 - Medical History PMH: Anemia, Back Problems (herniated disc), Deep Vein Thrombosis, Fractures ( rib fx, left shoulder, Left hand 5th digit, Humerus fracture), Gastritis, Pancreatitis, Seizures (Patient takes Keppra for seizures), Chronic Pain (left shoulder) Denies: HIV, Chronic Kidney Disease - Surgical History Surgical History: Endoscopy - Family History Family History: States: Unknown Family Hx - Living Arrangements Living Arrangements: Other - Social History Alcohol: Other (+etoh abuse) - Home Medications Home Medications: Ambulatory Orders Medication Instructions Recorded Omeprazole 40 mg PO DAILY 30 Days #30 10/16/17 nichole. levETIRAcetam [Keppra] 500 mg PO BID 30 Days #60 tab 10/16/17 Famotidine [Pepcid] 20 mg PO DAILY PRN #6 tab 10/17/17 Sulfamethoxazole/Trimethoprim 1 tab PO BID #14 tab 10/18/17 [Bactrim DS 800 mg-160 mg] - Allergies Allergies/Adverse Reactions: Allergies Allergy/AdvReac Type Severity Reaction Status Date / Time aspirin Allergy NAUSEA Verified 10/14/17 18:09 ibuprofen [From Motrin] Allergy NAUSEA Verified 10/14/17 18:09 naproxen Allergy RASH Verified 10/14/17 18:09 NSAIDS (Non-Steroidal Allergy NAUSEA Verified 10/17/17 07:20 Anti-Inflamma Review of Systems Constitutional: Negative for: Fever Cardiovascular: Negative for: Chest Pain Gastrointestinal: Negative for: Vomiting Genitourinary Male: Negative for: Scrotal Pain Musculoskeletal: Positive for: Foot Pain. Negative for: Neck Pain, Shoulder Pain, Hand Pain Skin: Positive for: Bruising. Negative for: Rash, Lesions Neurological: Negative for: Weakness, Numbness Physical Exam - Reviewed Nursing Documentation Reviewed: Yes Vital Signs Reviewed: Yes - Physical Exam Appears: Positive for: Well, Non-toxic Head Exam: Positive for: ATRAUMATIC Respiratory: Negative for: Respiratory Distress Gastrointestinal/Abdominal: Negative for: Tenderness Extremity: Positive for: Tenderness (L distal foot, +erythema and cellulitic appearing) Neurologic/Psych: Positive for: Alert, Oriented. Negative for: Motor/Sensory Deficits - ECG O2 Sat by Pulse Oximetry: 98 - Radiology X-Ray: Read By Radiologist X-Ray Interpretation: Other (neg fracture) Medical Decision Making Medical Decision Making: podiatry consult requested labs performed yesterday WBC normal XR report reviewed podiatry dressed foot, rec bactrim and followup in wound care clinic Disposition - Clinical Impression Clinical Impression: Cellulitis of foot - Patient ED Disposition Is Patient to be Admitted: No Counseled Patient/Family Regarding: Studies Performed, Diagnosis, Need For Followup, Rx Given - Disposition Referrals: [facility] [Outside] Disposition: Routine/Home Disposition Time: 11:30 Condition: STABLE Prescriptions: Sulfamethoxazole/Trimethoprim [Bactrim DS 800 mg-160 mg] 1 tab PO BID #14 tab Instructions: Cellulitis (Skin Infection), Adult (DC)
--- NOTE | 2017-10-18 13:42 | CP.PCM.CON ---
History of Present Illness - History of Present Illness History of Present Illness: 52M seen in ED complaining of painful left plantar foot wound. Patient states that the wound has been present for about a week and a half. He states that the pain has been increasing over that time and rates it at an 8/10 when he walks today. He denies any form of treatment for the wound a this time. He denies noticing any redness, drainage, malodor or other clinical signs of infection at this time. Patient is AAO x 3 during the examination. He denies any further pedal complaints at this time. Denies any recent F/C/CP/SOB/D/posterior calf pain. Patient states that he has thrown up blood in the last week and says that he has been seen multiple times in the ED for this problem. Review of Systems - Review of Systems Review of Systems: ROS as per HPI Past Patient History - Infectious Disease Hx of Infectious Diseases: None - Tetanus Immunizations Tetanus Immunization: Unknown - Past Medical History & Family History Past Medical History?: Yes - Past Social History Alcohol: Other (+etoh abuse) - NEUROLOGICAL Hx Seizures: Yes (Patient takes Keppra for seizures) - HEENT Hx HEENT Problems: No - RENAL Hx Chronic Kidney Disease: No - ENDOCRINE/METABOLIC Hx Endocrine Disorders: No - HEMATOLOGICAL/ONCOLOGICAL Hx Anemia: Yes Hx Human Immunodeficiency Virus (HIV): No - INTEGUMENTARY Hx Cellulitis: Yes - MUSCULOSKELETAL/RHEUMATOLOGICAL Hx Fractures: Yes (rib fx, left shoulder, Left hand 5th digit, Humerus fracture) - GASTROINTESTINAL Hx Gastritis: Yes Hx Pancreatitis: Yes - PSYCHIATRIC Hx Psychophysiologic Disorder: No Hx Substance Use: No (DENIES) - SURGICAL HISTORY Hx Surgeries: Yes Other/Comment: FINGER SX AND "STENT IN MY LIVER" - ANESTHESIA Hx Anesthesia: Yes Hx Anesthesia Reactions: No Hx Malignant Hyperthermia: No Meds Home Medications: Home Medication List Medication Instructions Recorded Confirmed Type Sulfamethoxazole/Trimethoprim 1 tab PO BID #14 tab 10/18/17 Rx [Bactrim DS 800 mg-160 mg] Allergies/Adverse Reactions: Allergies Allergy/AdvReac Type Severity Reaction Status Date / Time aspirin Allergy NAUSEA Verified 10/14/17 18:09 ibuprofen [From Motrin] Allergy NAUSEA Verified 10/14/17 18:09 naproxen Allergy RASH Verified 10/14/17 18:09 NSAIDS (Non-Steroidal Allergy NAUSEA Verified 10/17/17 07:20 Anti-Inflamma Physical Exam - Constitutional Appears: Well, Non-toxic, No Acute Distress - Extremities Exam Additional comments: LLE focused exam: Vasc: DP/PT pulses fully palpable 2/4 b/l. Skin temperature warm to warm WNL from proximal to distal. CFT < 3 seconds to all digits b/l. No edema noted to left foot Neuro: Epicritic and protective sensation grossly intact b/l Derm: Superficial wound measuring roughly 2 cm x 2 cm x 0.1 cm noted to plantar foot just proximal to first interspace with some hyperkeratotic tissue surrounding. Wound base is beefy, red and granular. No malodor, no periwound erythema, no drainage, no probe to bone, no tracking/tunneling/undermining. No other clinical signs of infection noted MSK: POP to plantar left foot wound. No other gross abnormalities noted - Neurological Exam Neurological exam: Alert, Oriented x3 - Psychiatric Exam Psychiatric exam: Normal Affect, Normal Mood Results - Vital Signs Recent Vital Signs: Last Vital Signs Temp 97.5 F L 10/18/17 09:19 Pulse 80 10/18/17 09:19 Resp 19 10/18/17 09:19 BP 133/74 10/18/17 09:19 Pulse Ox 98 10/18/17 13:21 Assessment & Plan - Assessment and Plan (Free Text) Assessment: 52M seen in ED for uninfected plantar left foot wound Plan: Patient seen and evaluated in ED Plan discussed with attending Dr. Moore Charts, labs, vitals reviewed Tylenol given to patient in ED for pain Xray left foot reviewed with no radiographic signs of trauma or osteomyelitis noted Patient's wound dressed with bacitracin, DSD, MAY Patient advised to remain NWB as much as possible and keep dressing C/D/I Patient encouraged to follow up in wound care center as outpatient - Date & Time Date: 10/18/17 Time: 14:15
[2017-10-18 16:40] VITALS: BP 122/67; PULSE 87; RESP 18; TEMP 97.8
== END 2017-10-18 12:00 | disposition home or self-care (01) ==
LOC: H.ER 09:15
DX: L03.116 Cellulitis of left lower limb (principal); R56.9 Unspecified convulsions; G89.29 Other chronic pain; D64.9 Anemia, unspecified; S91.302A Unspecified open wound, left foot, initial encounter; Z86.718 Personal history of other venous thrombosis and embolism; Z88.6 Allergy status to analgesic agent

== ENCOUNTER 2017-10-19 14:37 | Emergency (ER) | payer MEDICAID ==
[2017-10-19 14:37] VITALS: BMI 23.7
[2017-10-19 15:18] VITALS: TEMP 98.2; O2SAT 96
--- NOTE | 2017-10-19 16:05 | ED PDOC ---
HPI: Seizure Time Seen by Provider: 10/19/17 15:35 Chief Complaint (Nursing): Seizure Chief Complaint (Provider): seizure History Per: Patient History/Exam Limitations: no limitations Recent Seizure Activity Began: Unknown Number Of Seizures: Multiple Quality Of Seizure: Generalized Precipitating Factor(s): Decreased Sleep, Recent Alcohol Ingestion Post-ictal Period: Duration Unknown Severity: Mild Additional Complaint(s): 52yo male known to ED for frequent visits, GI bleed, LE pain, etoh abuse, presents c/o having 2 seizures today first this morning and second this afternoon. Denies etoh intake today. Denies drug use, current headache or weakness. Requesting food in ED. Past Medical History Reviewed: Historical Data, Nursing Documentation, Vital Signs Vital Signs: Last Vital Signs Temp 98.2 F 10/19/17 15:14 Pulse 89 10/19/17 17:13 Resp 20 10/19/17 17:13 BP 128/63 10/19/17 17:13 Pulse Ox 96 10/19/17 17:13 - Medical History PMH: Anemia, Back Problems (herniated disc), Deep Vein Thrombosis, Fractures ( rib fx, left shoulder, Left hand 5th digit, Humerus fracture), Gastritis, Pancreatitis, Seizures (Patient takes Keppra for seizures), Chronic Pain (left shoulder) Denies: HIV, Chronic Kidney Disease - Surgical History Surgical History: Endoscopy - Family History Family History: States: Unknown Family Hx - Living Arrangements Living Arrangements: Other - Social History Current smoker - smoking cessation education provided: Yes Alcohol: Occasional - Home Medications Home Medications: Ambulatory Orders Medication Instructions Recorded Omeprazole 40 mg PO DAILY 30 Days #30 10/16/17 nichole. levETIRAcetam [Keppra] 500 mg PO BID 30 Days #60 tab 10/16/17 Famotidine [Pepcid] 20 mg PO DAILY PRN #6 tab 10/17/17 Sulfamethoxazole/Trimethoprim 1 tab PO BID #14 tab 10/18/17 [Bactrim DS 800 mg-160 mg] levETIRAcetam [Keppra] 500 mg PO BID #60 tab 10/20/17 - Allergies Allergies/Adverse Reactions: Allergies Allergy/AdvReac Type Severity Reaction Status Date / Time aspirin Allergy NAUSEA Verified 10/20/17 19:51 ibuprofen [From Motrin] Allergy NAUSEA Verified 10/20/17 19:51 naproxen Allergy RASH Verified 10/20/17 19:51 NSAIDS (Non-Steroidal Allergy NAUSEA Verified 10/20/17 19:51 Anti-Inflamma Review of Systems Constitutional: Negative for: Fever ENT: Negative for: Throat Pain Cardiovascular: Negative for: Chest Pain Respiratory: Negative for: Shortness of Breath Gastrointestinal: Negative for: Abdominal Pain Musculoskeletal: Positive for: Foot Pain. Negative for: Neck Pain, Back Pain Neurological: Positive for: Seizures, Headache, Dizziness. Negative for: Weakness, Numbness, Incoordination, Change in Speech Psych: Negative for: Suicidal ideation Physical Exam - Reviewed Nursing Documentation Reviewed: Yes Vital Signs Reviewed: Yes - Physical Exam Appears: Positive for: Well, Non-toxic, No Acute Distress Head Exam: Positive for: ATRAUMATIC, NORMAL INSPECTION, NORMOCEPHALIC Skin: Positive for: Normal Color, Warm, DRY Eye Exam: Positive for: EOMI, Normal appearance, PERRL ENT: Positive for: Normal ENT Inspection Neck: Positive for: Normal, Painless ROM Cardiovascular/Chest: Positive for: Regular Rate, Rhythm Respiratory: Positive for: CNT, Normal Breath Sounds Gastrointestinal/Abdominal: Positive for: Normal Exam, Soft. Negative for: Tenderness, Guarding Back: Positive for: Normal Inspection Extremity: Positive for: Swelling (L foot mild erythema) Neurologic/Psych: Positive for: Alert, Oriented. Negative for: Motor/Sensory Deficits - Laboratory Results Result Diagrams: 10/19/17 16:00 - ECG O2 Sat by Pulse Oximetry: 96 Disposition - Clinical Impression Clinical Impression: Epileptic seizures, Alcohol abuse - Patient ED Disposition Is Patient to be Admitted: No Counseled Patient/Family Regarding: Studies Performed, Diagnosis, Need For Followup - Disposition Referrals: Alcoholics Anonymous [Outside] [facility] [Outside] Disposition: Routine/Home Disposition Time: 16:45 Condition: STABLE Instructions: Epilepsy in Adults, Alcohol Abuse and Alcoholism (DC) Forms: [employer] ([place])
[2017-10-19 16:23] LABS: BLOOD UREA NITROGEN 14 mg/dl (9-20); CALCIUM 8.1 mg/dL (8.4-10.2); GFR AFRICAN-AMERICAN > 60; GFR NON-AFRICAN AMERICAN > 60
[2017-10-19] MEDS: Potassium Chloride 20 mEq ER Tab PO ONE (16:56)
[2017-10-19 17:14] VITALS: BP 128/63; PULSE 89; RESP 20
== END 2017-10-19 17:29 | disposition home or self-care (01) ==
LOC: H.ER 14:37
DX: G40.909 Epilepsy, unspecified, not intractable, without status epilepticus (principal); F10.10 Alcohol abuse, uncomplicated; G89.29 Other chronic pain; K85.90 Acute pancreatitis without necrosis or infection, unspecified; Z86.718 Personal history of other venous thrombosis and embolism; Z88.6 Allergy status to analgesic agent; F17.200 Nicotine dependence, unspecified, uncomplicated

== ENCOUNTER 2017-10-19 20:16 | Emergency (ER) | payer MEDICAID ==
--- NOTE | 2017-10-19 20:29 | ED PDOC ---
HPI: General Adult Time Seen by Provider: 10/19/17 20:17 Past Medical History - Medical History PMH: Anemia, Back Problems (herniated disc), Deep Vein Thrombosis, Fractures ( rib fx, left shoulder, Left hand 5th digit, Humerus fracture), Gastritis, Pancreatitis, Seizures (Patient takes Keppra for seizures), Chronic Pain (left shoulder) Denies: HIV, Chronic Kidney Disease - Surgical History Surgical History: Endoscopy - Family History Family History: States: Unknown Family Hx - Home Medications Home Medications: Ambulatory Orders Medication Instructions Recorded Omeprazole 40 mg PO DAILY 30 Days #30 10/16/17 capsule. levETIRAcetam [Keppra] 500 mg PO BID 30 Days #60 tab 10/16/17 Famotidine [Pepcid] 20 mg PO DAILY PRN #6 tab 10/17/17 Sulfamethoxazole/Trimethoprim 1 tab PO BID #14 tab 10/18/17 [Bactrim DS 800 mg-160 mg] - Allergies Allergies/Adverse Reactions: Allergies Allergy/AdvReac Type Severity Reaction Status Date / Time aspirin Allergy NAUSEA Verified 10/14/17 18:09 ibuprofen [From Motrin] Allergy NAUSEA Verified 10/14/17 18:09 naproxen Allergy RASH Verified 10/14/17 18:09 NSAIDS (Non-Steroidal Allergy NAUSEA Verified 10/17/17 07:20 Anti-Inflamma Disposition - Clinical Impression Clinical Impression: Malingering - Patient ED Disposition Is Patient to be Admitted: No Counseled Patient/Family Regarding: Diagnosis, Need For Followup - Disposition Disposition: Routine/Home Disposition Time: 20:21 Condition: GOOD Instructions: Seizures, Adult (DC)
--- NOTE | 2017-10-19 21:17 | ED PDOC ---
HPI: Seizure Time Seen by Provider: 10/19/17 20:17 Chief Complaint (Nursing): Seizure Chief Complaint (Provider): Seizure History Per: Patient Recent Seizure Activity Began: Just Before Arrival Number Of Seizures: Multiple Additional Complaint(s): Shreyas Sepulveda is a 52 year old male with a past medical history of seizures , GI bleed, gastritis, and pancreatitis, who is well known to the ER and is presenting to the ED with complaints of fall which occurred during his usual seizure witnessed by his sister. Patient states that during his usual seizure he fell and hit his head and does not remember much else. Patient admits to drinking everyday and has been seen in this ED for alcohol abuse in the past. He denies any nausea, vomiting, or fevers. Patient denies any other medical complaints. Of note, patient was seen in this ED this morning for seizure activity, and given Keppra, Potassium and was discharged after blood work was completed. He also was admitted at the end of September for a GI bleed and had an endoscopy. PMD: Doctor, Conversion Past Medical History Reviewed: Historical Data, Nursing Documentation, Vital Signs Vital Signs: Last Vital Signs Temp 98.2 F 10/19/17 20:22 Pulse 78 10/19/17 20:22 Resp 18 10/19/17 20:22 BP 130/73 10/19/17 20:22 Pulse Ox 99 10/20/17 02:00 - Medical History PMH: Anemia, Back Problems (herniated disc), Deep Vein Thrombosis, Fractures ( rib fx, left shoulder, Left hand 5th digit, Humerus fracture), Gastritis, Pancreatitis, Seizures (Patient takes Keppra for seizures), Chronic Pain (left shoulder) Denies: HIV, Chronic Kidney Disease - Surgical History Surgical History: Endoscopy - Family History Family History: States: Unknown Family Hx - Social History Current smoker - smoking cessation education provided: Yes Alcohol: > 2 Drinks/Day Drugs: Denies - Home Medications Home Medications: Ambulatory Orders Medication Instructions Recorded Omeprazole 40 mg PO DAILY 30 Days #30 10/16/17 capsule. levETIRAcetam [Keppra] 500 mg PO BID 30 Days #60 tab 10/16/17 Famotidine [Pepcid] 20 mg PO DAILY PRN #6 tab 10/17/17 Sulfamethoxazole/Trimethoprim 1 tab PO BID #14 tab 10/18/17 [Bactrim DS 800 mg-160 mg] - Allergies Allergies/Adverse Reactions: Allergies Allergy/AdvReac Type Severity Reaction Status Date / Time aspirin Allergy NAUSEA Verified 10/14/17 18:09 ibuprofen [From Motrin] Allergy NAUSEA Verified 10/14/17 18:09 naproxen Allergy RASH Verified 10/14/17 18:09 NSAIDS (Non-Steroidal Allergy NAUSEA Verified 10/17/17 07:20 Anti-Inflamma Review of Systems ROS Statement: Except As Marked, All Systems Reviewed And Found Negative Constitutional: Positive for: Other (head injury). Negative for: Fever Gastrointestinal: Negative for: Nausea, Vomiting Physical Exam - Reviewed Nursing Documentation Reviewed: Yes Vital Signs Reviewed: Yes - Physical Exam Appears: Positive for: Well (appears comfortable), Non-toxic, No Acute Distress Head Exam: Positive for: ATRAUMATIC, NORMAL INSPECTION, NORMOCEPHALIC Skin: Positive for: Normal Color, Warm, Dry Eye Exam: Positive for: EOMI, Normal appearance, PERRL ENT: Positive for: Normal ENT Inspection Neck: Positive for: Normal, Painless ROM, Supple Cardiovascular/Chest: Positive for: Regular Rate, Rhythm. Negative for: Murmur Respiratory: Positive for: Normal Breath Sounds. Negative for: Respiratory Distress Gastrointestinal/Abdominal: Positive for: Normal Exam, Soft. Negative for: Tenderness Back: Positive for: Normal Inspection Extremity: Positive for: Normal ROM. Negative for: Deformity, Swelling Neurologic/Psych: Positive for: Alert, Oriented, Gait (steady). Negative for: Motor/Sensory Deficits - ECG O2 Sat by Pulse Oximetry: 99 (RA) Pulse Ox Interpretation: Normal - Progress Re-evaluation Time: 02:00 Condition: Re-examined, Improved Medical Decision Making Medical Decision Making: Time: 20:56 Impression: Reoccurring Seizures, Alcohol Intoxication Differentials include: Head Injury, Intercranial Bleed Plan: --CT Head --Alcohol Serum --Folic Acid 1 mg PO --Keppra 500 mg PO --Vitamin B1 Tab Provider reviewed patient's earlier charts and blood work from this morning. Head CT FINDINGS: Brain: There is cerebral atrophy with compensatory dilation of the ventricles. Periventricular white matter hypoattenuation most likely reflects chronic small vessel ischemic change. No hemorrhage. Ventricles: See above. Bones/joints: Unremarkable. No acute fracture. Soft tissues: Unremarkable. Sinuses: Left maxillary sinus and ethmoid air cell mucosal thickening. Mastoid air cells: Unremarkable as visualized. No mastoid effusion. IMPRESSION: 1. No acute intracranial findings. 2. Left maxillary sinus and ethmoid air cell mucosal thickening. Scribe Attestation: Documented by Roxana Wang, acting as a scribe for Cathy Salazar MD Provider Scribe Attestation: All medical record entries made by the Scribe were at my direction and personally dictated by me. I have reviewed the chart and agree that the record accurately reflects my personal performance of the history, physical exam, medical decision making, and the department course for this patient. I have also personally directed, reviewed, and agree with the discharge instructions and disposition. Disposition - Clinical Impression Clinical Impression: Malingering, Recurrent seizures, Alcohol intoxication - Patient ED Disposition Is Patient to be Admitted: No Doctor Will See Patient In The: Office Counseled Patient/Family Regarding: Studies Performed, Diagnosis, Need For Followup - Disposition [facility] Disposition: Routine/Home Disposition Time: 01:58 Condition: GOOD Additional Instructions: Follow up with your PCP in 2-3 days. Instructions: Seizures, Adult (DC), Alcohol Abuse and Alcoholism (DC)
[2017-10-20 03:11] VITALS: BP 135/82; PULSE 86; RESP 16; TEMP 98.3; O2SAT 98
--- NOTE | 2017-10-20 07:38 | CT ---
PROCEDURE: CT HEAD WITHOUT CONTRAST. HISTORY: seizures head injury COMPARISON: None available. TECHNIQUE: Axial computed tomography images were obtained through the head/brain without intravenous contrast. Radiation dose: Total exam DLP = 775 mGy-cm. This CT exam was performed using one or more of the following dose reduction techniques: Automated exposure control, adjustment of the mA and/or kV according to patient size, and/or use of iterative reconstruction technique. FINDINGS: HEMORRHAGE: No intracranial hemorrhage. BRAIN: Cerebral atrophy with compensatory dilatation of the ventricles. Periventricular white matter hypoattenuation most likely reflects chronic small vessel ischemic change. VENTRICLES: See above. CALVARIUM: Unremarkable. PARANASAL SINUSES: Bilateral maxillary sinus as well as ethmoid air cell and sphenoid sinus mucosal opacification. Questionable 1.8 centimeter mucosal retention cyst and or polyp in the posterior aspect of the right maxillary sinus. MASTOID AIR CELLS: Unremarkable as visualized. No inflammatory changes. OTHER FINDINGS: None. IMPRESSION: No acute intracranial abnormalities. Chronic microvascular ischemic changes. Sinus mucosal disease as above. If symptoms persist, consider further evaluation with MRI. These findings were preliminarily reported at 10:12 p.m. on 10/19/[address] Dl Myers from [facility].
== END 2017-10-20 03:14 | disposition home or self-care (01) ==
LOC: H.ER 20:16
DX: G40.909 Epilepsy, unspecified, not intractable, without status epilepticus (principal); F10.129 Alcohol abuse with intoxication, unspecified; Z86.718 Personal history of other venous thrombosis and embolism; Z88.6 Allergy status to analgesic agent; Z76.5 Malingerer [conscious simulation]; G89.29 Other chronic pain; K85.90 Acute pancreatitis without necrosis or infection, unspecified; F17.200 Nicotine dependence, unspecified, uncomplicated

== ENCOUNTER 2017-10-20 10:47 | Emergency (ER) | payer MEDICAID ==
[2017-10-20 11:22] VITALS: BP 130/71; PULSE 77; RESP 16; TEMP 98; O2SAT 98
--- NOTE | 2017-10-20 11:23 | ED PDOC ---
Lower Extremity Pain/Injury Time Seen by Provider: 10/20/17 11:20 Chief Complaint (Nursing): Lower Extremity Problem/Injury Chief Complaint (Provider): right leg pain History Per: Patient, EMS Additional Complaint(s): 52-year-old male with history of alcohol abuse and seizure disorder presents to emergency department via ambulance for evaluation of right leg pain. Patient also states he had a seizure earlier today. Patient is well-known to ED for frequent visits. PMD: none Past Medical History Reviewed: Historical Data, Nursing Documentation, Vital Signs - Medical History PMH: Anemia, Back Problems (herniated disc), Deep Vein Thrombosis, Fractures ( rib fx, left shoulder, Left hand 5th digit, Humerus fracture), Gastritis, Pancreatitis, Seizures (Patient takes Keppra for seizures), Chronic Pain (left shoulder) - Surgical History Surgical History: Endoscopy - Family History Family History: States: No Known Family Hx - Living Arrangements Living Arrangements: Other (non-domiciled) - Social History Alcohol: > 2 Drinks/Day Drugs: Denies - Home Medications Home Medications: Ambulatory Orders Medication Instructions Recorded Omeprazole 40 mg PO DAILY 30 Days #30 10/16/17 capsule. levETIRAcetam [Keppra] 500 mg PO BID 30 Days #60 tab 10/16/17 Famotidine [Pepcid] 20 mg PO DAILY PRN #6 tab 10/17/17 Sulfamethoxazole/Trimethoprim 1 tab PO BID #14 tab 10/18/17 [Bactrim DS 800 mg-160 mg] levETIRAcetam [Keppra] 500 mg PO BID #60 tab 10/20/17 - Allergies Allergies/Adverse Reactions: Allergies Allergy/AdvReac Type Severity Reaction Status Date / Time aspirin Allergy NAUSEA Verified 10/20/17 10:51 ibuprofen [From Motrin] Allergy NAUSEA Verified 10/20/17 10:51 naproxen Allergy RASH Verified 10/20/17 10:51 NSAIDS (Non-Steroidal Allergy NAUSEA Verified 10/20/17 10:51 Anti-Inflamma Wells Criteria for PE - Wells Criteria for Pulmonary Embolism Clinical Signs and Symptoms of DVT: No P.E is #1 Diagnosis, or Equally Likely: No Heart Rate >100: No Immobilization at least 3 days;Surgery previous 4 weeks: No Previous, objectively diagnosed PE or DVT: No Hemoptysis: No Malignancy w/treatment within 6 months, or palliative: No Total Score: 0 Review of Systems ROS Statement: Except As Marked, All Systems Reviewed And Found Negative Constitutional: Negative for: Fever Cardiovascular: Negative for: Chest Pain Respiratory: Negative for: Cough Musculoskeletal: Positive for: Leg Pain Neurological: Negative for: Altered Mental Status, Headache Physical Exam - Reviewed Nursing Documentation Reviewed: Yes Vital Signs Reviewed: Yes - Physical Exam Appears: Positive for: Well, Non-toxic, No Acute Distress Skin: Negative for: Rash Eye Exam: Positive for: Normal appearance Cardiovascular/Chest: Positive for: Regular Rate, Rhythm Respiratory: Positive for: Normal Breath Sounds Back: Positive for: Normal Inspection Extremity: Positive for: Normal ROM Neurologic/Psych: Positive for: Alert, Oriented, Gait (steady) - ECG O2 Sat by Pulse Oximetry: 98 Pulse Ox Interpretation: Normal Medical Decision Making Medical Decision Makin52 year old with right leg pain Patient has steady gait. Rx keppra given. Patient stable for discharge. Disposition - Clinical Impression Clinical Impression: Seizure disorder, Leg pain - Patient ED Disposition Is Patient to be Admitted: No Counseled Patient/Family Regarding: Diagnosis, Need For Followup, Rx Given - Disposition Referrals: French Kaur MD [Staff Provider] - Disposition: Routine/Home Disposition Time: 11:26 Condition: STABLE Additional Instructions: Take rx meds as directed. Follow up with neurologist. Prescriptions: levETIRAcetam [Keppra] 500 mg PO BID #60 tab Instructions: Seizures, Adult (DC), Muscle and Bone Pain (DC) Forms: [employer] (Romansh)
[2017-10-20] MEDS ORDERED: Alum-Mag Hydrox-Simethicone Susp (30 mL) PO STA (11:38)
[2017-10-20] MEDS ORDERED: Alum-Mag Hydrox-Simethicone Susp (30 mL) ONE (11:39)
== END 2017-10-20 11:52 | disposition home or self-care (01) ==
LOC: H.ER 10:47
DX: G40.909 Epilepsy, unspecified, not intractable, without status epilepticus (principal); G89.29 Other chronic pain; Z86.718 Personal history of other venous thrombosis and embolism; Z88.6 Allergy status to analgesic agent

== ENCOUNTER 2017-10-20 17:41 | Emergency (ER) | payer MEDICAID ==
[2017-10-20 17:47] VITALS: O2SAT 98
--- NOTE | 2017-10-20 18:18 | ED PDOC ---
HPI: Psych/Substance Abuse Time Seen by Provider: 10/20/17 17:47 Chief Complaint (Nursing): Alcohol Ingestion Chief Complaint (Provider): Alochol Ingestion ED Caveat: Intoxicated History Per: Patient History/Exam Limitations: intoxication Onset/Duration Of Symptoms: Hrs Current Symptoms Are (Timing): Still Present Additional Complaint(s): 52 y/o male presents to the ED with EtOH intoxication. Patient admits to drinking in public and was here at this ED earlier for a seizure. He is requesting a meal and offers no complaints. PMD: None provided Past Medical History Reviewed: Historical Data, Nursing Documentation, Vital Signs Vital Signs: Last Vital Signs Temp 99.3 F 10/20/17 17:43 Pulse 109 H 10/20/17 17:43 Resp 16 10/20/17 17:43 BP 128/73 10/20/17 17:43 Pulse Ox 98 10/20/17 17:43 - Medical History PMH: Anemia, Back Problems (herniated disc), Deep Vein Thrombosis, Fractures ( rib fx, left shoulder, Left hand 5th digit, Humerus fracture), Gastritis, Pancreatitis, Seizures (Patient takes Keppra for seizures), Chronic Pain (left shoulder) Denies: HIV, Chronic Kidney Disease - Surgical History Surgical History: Endoscopy - Family History Family History: States: No Known Family Hx - Social History Alcohol: > 2 Drinks/Day - Home Medications Home Medications: Ambulatory Orders Medication Instructions Recorded Omeprazole 40 mg PO DAILY 30 Days #30 10/16/17 capsule. levETIRAcetam [Keppra] 500 mg PO BID 30 Days #60 tab 10/16/17 Famotidine [Pepcid] 20 mg PO DAILY PRN #6 tab 10/17/17 Sulfamethoxazole/Trimethoprim 1 tab PO BID #14 tab 10/18/17 [Bactrim DS 800 mg-160 mg] levETIRAcetam [Keppra] 500 mg PO BID #60 tab 10/20/17 - Allergies Allergies/Adverse Reactions: Allergies Allergy/AdvReac Type Severity Reaction Status Date / Time aspirin Allergy NAUSEA Verified 10/20/17 19:51 ibuprofen [From Motrin] Allergy NAUSEA Verified 10/20/17 19:51 naproxen Allergy RASH Verified 10/20/17 19:51 NSAIDS (Non-Steroidal Allergy NAUSEA Verified 10/20/17 19:51 Anti-Inflamma Review of Systems ROS Statement: Except As Marked, All Systems Reviewed And Found Negative Constitutional: Positive for: Other (EtOH intoxication) Physical Exam - Reviewed Nursing Documentation Reviewed: Yes Vital Signs Reviewed: Yes - Physical Exam Appears: Positive for: Well (no slurred speech), Non-toxic, No Acute Distress Head Exam: Positive for: ATRAUMATIC, NORMAL INSPECTION, NORMOCEPHALIC Skin: Positive for: Normal Color, Warm, Dry Eye Exam: Positive for: EOMI, Normal appearance, PERRL ENT: Positive for: Normal ENT Inspection, Other (EtOH on breath) Neck: Positive for: Normal, Painless ROM, Supple Cardiovascular/Chest: Positive for: Regular Rate, Rhythm. Negative for: Murmur , Tachycardia Respiratory: Positive for: Normal Breath Sounds. Negative for: Respiratory Distress Gastrointestinal/Abdominal: Positive for: Normal Exam, Soft Back: Positive for: Normal Inspection. Negative for: L CVA Tenderness, R CVA Tenderness, Vertebral Tenderness Extremity: Positive for: Normal ROM, Other (gait is steady). Negative for: Pedal Edema, Deformity Neurologic/Psych: Positive for: Alert, Oriented (x3) - ECG O2 Sat by Pulse Oximetry: 98 (RA) Pulse Ox Interpretation: Normal Medical Decision Making Medical Decision Making: Time:17:43 Impression: EtOH intoxication Scribe Attestation: Documented by Humble Theodore acting as a scribe for Lincoln Olivier PA-C. MD Scribe Attestation: All medical record entries made by the Scribe were at my direction and personally dictated by me. I have reviewed the chart and agree that the record accurately reflects my personal performance of the history, physical exam, medical decision making, and the department course for this patient. I have also personally directed, reviewed, and agree with the discharge instructions and disposition. Disposition - Clinical Impression Clinical Impression: Alcohol intoxication - Patient ED Disposition Is Patient to be Admitted: No - Disposition Disposition: Routine/Home Disposition Time: 18:23 Condition: STABLE Instructions: Alcohol Abuse and Alcoholism (DC) Forms: [email or web address] (Venezuelan) Print Language: DUTCH
[2017-10-20 18:24] VITALS: BP 126/75; PULSE 89; RESP 15; TEMP 98.2
== END 2017-10-20 18:24 | disposition home or self-care (01) ==
LOC: H.ER 17:41
DX: F10.129 Alcohol abuse with intoxication, unspecified (principal)

== ENCOUNTER 2017-10-20 19:47 | Emergency (ER) | payer MEDICAID ==
[2017-10-20 19:53] VITALS: O2SAT 98
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
[2017-10-20] MEDS ORDERED: Sodium Chloride 0.9% 1,000 ML IV STA (20:20)
[2017-10-20 21:32] LABS: BASO # 0.1 K/uL (0.0-0.2); BASO % 1.1 % (0.0-2.0); EOS # 0.4 K/uL (0.0-0.7); HEMOGLOBIN 8.5 g/dL (12.0-18.0); LYMPH % 16.8 % (20.0-40.0); MEAN CELL VOLUME 88.4 fl (80.0-94.0); MEAN CORPUSCULAR HEMOGLOBIN 28.3 pg (27.0-31.0); MEAN PLATELET VOLUME 7.4 fl (7.2-11.7); MONO # 0.7 K/uL (0.0-0.8); NEUT % 65.1 % (50.0-75.0); RBC 2.99 Mil/uL (4.40-5.90); RED CELL DISTRIBUTION WIDTH 19.6 % (11.5-14.5); WHITE BLOOD COUNT 6.2 K/uL (4.8-10.8)
[2017-10-20 21:44] LABS: ALB/GLOB RATIO 0.8 (1.0-2.1); ALBUMIN 2.9 g/dL (3.5-5.0); ALT/SGPT 57 U/L (21-72); AST/SGOT 108 U/L (17-59); BLOOD UREA NITROGEN 15 mg/dl (9-20); CALCIUM 8.3 mg/dL (8.4-10.2); GFR AFRICAN-AMERICAN > 60; GFR NON-AFRICAN AMERICAN > 60; LIPASE 381 U/L (23-300)
--- NOTE | 2017-10-20 22:12 | CT ---
EXAM: CT Head Without Intravenous Contrast EXAM DATE/TIME: 10/20/2017 8:16 PM CLINICAL HISTORY: 52 years old, male; Signs and symptoms; Other: Poss seizure; Additional info: Seizure, head injury TECHNIQUE: Axial computed tomography images of the head/brain without intravenous contrast. All CT scans at this facility use one or more dose reduction techniques, viz.: automated exposure control; ma/kV adjustment per patient size (including targeted exams where dose is matched to indication; i.e. head); or iterative reconstruction technique. Coronal and sagittal reformatted images were created and reviewed. COMPARISON: CT - HEAD W/O CONTRAST 2017-10-19 21:14 FINDINGS: There is atrophy. There is chronic small vessel ischemic disease similar to prior. There is no hemorrhage or edema. There is partial opacification of the maxillary and ethmoid sinuses that appear slightly more prominent than recent prior study raising the possibility of acute sinusitis. Clinical correlation is recommended. The osseous structures are normal. IMPRESSION: Sinus disease.
[2017-10-21 00:20] VITALS: RESP 18
[2017-10-21 00:22] VITALS: BP 136/81; PULSE 93; TEMP 98.1
--- NOTE | 2017-10-21 22:51 | CARD ---
APPROVED REPORT EKG Measurement Heart [id number] <Conclusion> Reversed arm leads Sinus tachycardia Abnormal ECG
== END 2017-10-21 00:11 | disposition home or self-care (01) ==
LOC: H.ER 19:47
DX: S09.90XA Unspecified injury of head, initial encounter (principal); W19.XXXA Unspecified fall, initial encounter; Y92.89 Other specified places as the place of occurrence of the external cause; G40.909 Epilepsy, unspecified, not intractable, without status epilepticus; F10.129 Alcohol abuse with intoxication, unspecified; G89.29 Other chronic pain; J32.9 Chronic sinusitis, unspecified; K85.90 Acute pancreatitis without necrosis or infection, unspecified; Z86.718 Personal history of other venous thrombosis and embolism; Z88.6 Allergy status to analgesic agent

== ENCOUNTER 2017-10-21 15:35 | Emergency (ER) | payer MEDICAID ==
[2017-10-21 15:42] VITALS: BP 113/57; PULSE 87; RESP 18; TEMP 98; O2SAT 99
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
== END 2017-10-21 17:57 | disposition home or self-care (01) ==
LOC: H.ER 15:35
DX: S79.922A Unspecified injury of left thigh, initial encounter (principal); V03.90XA Pedestrian on foot injured in collision with car, pick-up truck or van, unspecified whether traffic or nontraffic accident, initial encounter; G89.29 Other chronic pain; Z86.718 Personal history of other venous thrombosis and embolism; Z88.6 Allergy status to analgesic agent

== ENCOUNTER 2017-10-21 22:15 | Emergency (ER) | payer MEDICAID ==
[2017-10-21 22:22] VITALS: BP 116/62; PULSE 95; RESP 17; TEMP 98.1; O2SAT 98
--- NOTE | 2017-10-21 22:25 | ED PDOC ---
HPI: Psych/Substance Abuse Time Seen by Provider: 10/21/17 22:23 Chief Complaint (Nursing): Alcohol Ingestion Chief Complaint (Provider): etoh History Per: Patient Additional Complaint(s): 52-year-old male presents to emergency department stating he feels nauseous and had a seizure earlier today. Patient denies vomiting despite chief complaint stating otherwise. Patient is well-known to ED for frequent daily visits. He was already once today in ED. Past Medical History Reviewed: Historical Data, Nursing Documentation, Vital Signs Vital Signs: Last Vital Signs Temp 98.1 F 10/21/17 22:19 Pulse 95 H 10/21/17 22:19 Resp 17 10/21/17 22:19 BP 116/62 10/21/17 22:19 Pulse Ox 98 10/21/17 22:19 - Medical History PMH: Anemia, Back Problems (herniated disc), Deep Vein Thrombosis, Fractures ( rib fx, left shoulder, Left hand 5th digit, Humerus fracture), Gastritis, Seizures (Patient takes Keppra for seizures), Chronic Pain (left shoulder) - Surgical History Surgical History: Endoscopy - Family History Family History: States: No Known Family Hx - Living Arrangements Living Arrangements: With Family - Social History Current smoker - smoking cessation education provided: No Alcohol: > 2 Drinks/Day Drugs: Denies - Immunization History Hx Tetanus Toxoid Vaccination: Yes - Home Medications Home Medications: Ambulatory Orders Medication Instructions Recorded Omeprazole 40 mg PO DAILY 30 Days #30 10/16/17 capsule. levETIRAcetam [Keppra] 500 mg PO BID 30 Days #60 tab 10/16/17 Famotidine [Pepcid] 20 mg PO DAILY PRN #6 tab 10/17/17 Sulfamethoxazole/Trimethoprim 1 tab PO BID #14 tab 10/18/17 [Bactrim DS 800 mg-160 mg] levETIRAcetam [Keppra] 500 mg PO BID #60 tab 10/20/17 - Allergies Allergies/Adverse Reactions: Allergies Allergy/AdvReac Type Severity Reaction Status Date / Time aspirin Allergy NAUSEA Verified 10/21/17 15:38 ibuprofen [From Motrin] Allergy NAUSEA Verified 10/21/17 15:38 naproxen Allergy RASH Verified 10/21/17 15:38 NSAIDS (Non-Steroidal Allergy NAUSEA Verified 10/21/17 15:38 Anti-Inflamma Review of Systems ROS Statement: Except As Marked, All Systems Reviewed And Found Negative Gastrointestinal: Positive for: Nausea. Negative for: Vomiting Psych: Positive for: Other (etoh) Physical Exam - Reviewed Nursing Documentation Reviewed: Yes Vital Signs Reviewed: Yes - Physical Exam Appears: Positive for: Well, Non-toxic, No Acute Distress Skin: Negative for: Rash Eye Exam: Positive for: Normal appearance Cardiovascular/Chest: Positive for: Regular Rate, Rhythm Respiratory: Positive for: Normal Breath Sounds Gastrointestinal/Abdominal: Positive for: Soft. Negative for: Tenderness, Distended, Guarding, Rebound Neurologic/Psych: Positive for: Alert, Oriented, Gait (steady) - ECG O2 Sat by Pulse Oximetry: 98 Pulse Ox Interpretation: Normal Medical Decision Making Medical Decision Makin-year-old male with nausea. Vital signs are stable, patient is ambulatory with steady gait. Patient is requesting Keppra dose which was ordered. Patient left before receiving dose. Disposition - Clinical Impression Clinical Impression: Alcohol abuse, Seizures - Disposition Disposition: Left W/O Treatment Disposition Time: 23:06 Condition: UNKNOWN Forms: [employer] (Ukrainian)
== END 2017-10-21 22:55 | disposition home or self-care (01) ==
LOC: H.ER 22:15
DX: F10.129 Alcohol abuse with intoxication, unspecified (principal); R56.9 Unspecified convulsions; G89.29 Other chronic pain; Z86.718 Personal history of other venous thrombosis and embolism; Z88.6 Allergy status to analgesic agent

== ENCOUNTER 2017-10-22 12:10 | Emergency (ER) | payer MEDICAID ==
[2017-10-22 12:38] VITALS: BP 125/66; PULSE 87; RESP 19; TEMP 98.2; O2SAT 98
--- NOTE | 2017-10-22 12:46 | ED PDOC ---
HPI: General Adult Time Seen by Provider: 10/22/17 12:18 Chief Complaint (Nursing): Med Refill Chief Complaint (Provider): Prilosec Rx and food History Per: Patient History/Exam Limitations: no limitations Onset/Duration Of Symptoms: Days Have you had recent travel within the past 21 days to any of the following countries: [place], [place], [place] or [place]?: No Additional Complaint(s): Pt denies complaint. Pt was seen [facility] ER this morning. Past Medical History Reviewed: Historical Data, Nursing Documentation, Vital Signs Vital Signs: Last Vital Signs Temp 98.2 F 10/22/17 12:37 Pulse 87 10/22/17 12:37 Resp 19 10/22/17 12:37 BP 125/66 10/22/17 12:37 Pulse Ox 98 10/22/17 12:37 - Medical History PMH: Anemia, Back Problems (herniated disc), Deep Vein Thrombosis, Fractures ( rib fx, left shoulder, Left hand 5th digit, Humerus fracture), Gastritis, Seizures (Patient takes Keppra for seizures), Chronic Pain (left shoulder) - Surgical History Surgical History: Endoscopy - Family History Family History: States: Unknown Family Hx - Living Arrangements Living Arrangements: With Family - Social History Current smoker - smoking cessation education provided: No Alcohol: > 2 Drinks/Day - Immunization History Hx Tetanus Toxoid Vaccination: Yes - Home Medications Home Medications: Ambulatory Orders Medication Instructions Recorded levETIRAcetam [Keppra] 500 mg PO BID 30 Days #60 tab 10/16/17 Famotidine [Pepcid] 20 mg PO DAILY PRN #6 tab 10/17/17 Omeprazole Magnesium [Prilosec Otc] 20 mg PO DAILY #5 tablet. 10/22/17 - Allergies Allergies/Adverse Reactions: Allergies Allergy/AdvReac Type Severity Reaction Status Date / Time aspirin Allergy NAUSEA Verified 10/22/17 02:02 ibuprofen [From Motrin] Allergy NAUSEA Verified 10/22/17 02:02 naproxen Allergy RASH Verified 10/22/17 02:02 NSAIDS (Non-Steroidal Allergy NAUSEA Verified 10/22/17 02:02 Anti-Inflamma Review of Systems ROS Statement: Except As Marked, All Systems Reviewed And Found Negative Constitutional: Negative for: Fever, Chills Gastrointestinal: Negative for: Nausea, Vomiting, Abdominal Pain Neurological: Negative for: Seizures, Altered Mental Status Physical Exam - Reviewed Nursing Documentation Reviewed: Yes Vital Signs Reviewed: Yes - Physical Exam Appears: Positive for: Well, Non-toxic, No Acute Distress Head Exam: Positive for: ATRAUMATIC, NORMAL INSPECTION, NORMOCEPHALIC Skin: Positive for: Normal Color, Warm, DRY Eye Exam: Positive for: Normal appearance ENT: Positive for: Normal ENT Inspection Neck: Positive for: Normal, Painless ROM Cardiovascular/Chest: Positive for: Regular Rate, Rhythm Respiratory: Positive for: Normal Breath Sounds. Negative for: Accessory Muscle Use, Respiratory Distress Back: Positive for: Normal Inspection Extremity: Positive for: Normal ROM Neurologic/Psych: Positive for: Alert, Oriented - ECG O2 Sat by Pulse Oximetry: 98 Disposition - Clinical Impression Clinical Impression: Medication refill - Patient ED Disposition Is Patient to be Admitted: No Counseled Patient/Family Regarding: Diagnosis, Need For Followup, Rx Given - Disposition Disposition: Routine/Home Disposition Time: 12:44 Condition: STABLE Prescriptions: Omeprazole Magnesium [Prilosec Otc] 20 mg PO DAILY #5 tablet.
== END 2017-10-22 12:50 | disposition home or self-care (01) ==
LOC: H.ER 12:10
DX: Z76.0 Encounter for issue of repeat prescription (principal)

== ENCOUNTER 2017-10-22 17:18 | Emergency (ER) | payer MEDICAID ==
[2017-10-22 18:12] VITALS: BP 118/70; PULSE 84; RESP 18; TEMP 97.9; O2SAT 99
--- NOTE | 2017-10-22 19:16 | ED PDOC ---
- ECG O2 Sat by Pulse Oximetry: 99 Medical Decision Making Medical Decision Makin:00 Patient endorsed to me from Dr. Huizar. Pending CT scan, labs, and neurology consultation. Disposition - Disposition
--- NOTE | 2017-10-22 19:31 | ED PDOC ---
HPI: Seizure Time Seen by Provider: 10/22/17 19:02 Chief Complaint (Nursing): Seizure Chief Complaint (Provider): Seizure History Per: Patient History/Exam Limitations: no limitations Recent Seizure Activity Began: Hours Ago: (this afternoon) Number Of Seizures: Multiple (2) Length Of Seizures (Duration): Unknown Additional Complaint(s): 52 year old male, with medical history of alcohol intoxication and seizures, presented to ED because of 2 seizures this afternoon in the park in [place]. Patient is well known to the provider and ED staff for multiple visits for seizures and alcohol intoxications. He is compliant with medications and takes Kepra currently. Patient recently saw his neurologist, Dr. Kaur, who increased dosage of care product to 3000mg. He denies headache and vomiting. Of note, patient admits to frequently consuming alcohol. PCP: Matt Garcia Past Medical History Reviewed: Historical Data, Nursing Documentation, Vital Signs Vital Signs: Last Vital Signs Temp 97.9 F 10/22/17 18:10 Pulse 84 10/22/17 18:10 Resp 18 10/22/17 18:10 BP 118/70 10/22/17 18:10 Pulse Ox 99 10/22/17 21:07 - Medical History PMH: Anemia, Back Problems (herniated disc), Deep Vein Thrombosis, Fractures ( rib fx, left shoulder, Left hand 5th digit, Humerus fracture), Gastritis, Seizures (Patient takes Keppra for seizures), Chronic Pain (left shoulder) - Surgical History Surgical History: Endoscopy - Family History Family History: States: Unknown Family Hx - Social History Current smoker - smoking cessation education provided: Yes (<10 cigarettes daily ) Alcohol: Occasional Drugs: Denies - Immunization History Hx Tetanus Toxoid Vaccination: Yes - Home Medications Home Medications: Ambulatory Orders Medication Instructions Recorded levETIRAcetam [Keppra] 500 mg PO BID 30 Days #60 tab 10/16/17 Famotidine [Pepcid] 20 mg PO DAILY PRN #6 tab 10/17/17 Omeprazole Magnesium [Prilosec Otc] 20 mg PO DAILY #5 tablet. 10/22/17 - Allergies Allergies/Adverse Reactions: Allergies Allergy/AdvReac Type Severity Reaction Status Date / Time aspirin Allergy NAUSEA Verified 10/22/17 02:02 ibuprofen [From Motrin] Allergy NAUSEA Verified 10/22/17 02:02 naproxen Allergy RASH Verified 10/22/17 02:02 NSAIDS (Non-Steroidal Allergy NAUSEA Verified 10/22/17 02:02 Anti-Inflamma Review of Systems ROS Statement: Except As Marked, All Systems Reviewed And Found Negative Cardiovascular: Negative for: Chest Pain Gastrointestinal: Negative for: Vomiting Genitourinary Male: Negative for: Other (bloody stool) Neurological: Positive for: Seizures. Negative for: Headache Physical Exam - Reviewed Nursing Documentation Reviewed: Yes Vital Signs Reviewed: Yes - Physical Exam Appears: Positive for: Non-toxic, No Acute Distress Head Exam: Positive for: ATRAUMATIC, NORMAL INSPECTION, NORMOCEPHALIC Skin: Positive for: Normal Color, Warm, Dry Eye Exam: Positive for: Normal appearance, EOMI, PERRL ENT: Positive for: Normal ENT Inspection Neck: Positive for: Normal, Painless ROM, Supple Cardiovascular/Chest: Positive for: Regular Rate, Rhythm. Negative for: Murmur Respiratory: Positive for: Normal Breath Sounds. Negative for: Wheezing, Respiratory Distress Gastrointestinal/Abdominal: Positive for: Normal Exam, Soft. Negative for: Tenderness Back: Positive for: Normal Inspection. Negative for: L CVA Tenderness, R CVA Tenderness, Vertebral Tenderness Extremity: Positive for: Normal ROM (upper/lower). Negative for: Deformity Neurologic/Psych: Positive for: Alert, Oriented. Negative for: Motor/Sensory Deficits - Laboratory Results Result Diagrams: 10/22/17 19:30 - ECG O2 Sat by Pulse Oximetry: 99 (RA) Pulse Ox Interpretation: Normal Medical Decision Making Medical Decision Making: Initial Impression: Recurrent seizures and alcohol abuse Initial Plan: Alcohol Serum BMP Keppra 1000mg PO Considering history of recurring seizures and the fact that patient had appointment with neurologist today no further testing or treatment indicated in ER. Patient will be able to follow up with neurologist in outpatient. 0850 Patient has no more seizures, and stable for discharge. Scribe Attestation: Documented by Carmine Rodriguez acting as a scribe for Cathy Salazar MD. Provider Scribe Attestation: All medical record entries made by the Scribe were at my direction and personally dictated by me. I have reviewed the chart and agree that the record accurately reflects my personal performance of the history, physical exam, medical decision making, and the department course for this patient. I have also personally directed, reviewed, and agree with the discharge instructions and disposition. Disposition - Clinical Impression Clinical Impression: Frequent seizures - Patient ED Disposition Is Patient to be Admitted: No Doctor Will See Patient In The: Office Counseled Patient/Family Regarding: Studies Performed, Diagnosis, Need For Followup - Disposition Referrals: [facility] [Outside] French Kaur MD [Staff Provider] - Disposition: Routine/Home Disposition Time: 08:50 Condition: GOOD Additional Instructions: Follow up with your PCP in 2-3 days. Instructions: Seizures, Adult (DC)
[2017-10-22 20:20] LABS: BLOOD UREA NITROGEN 15 mg/dl (9-20); CALCIUM 8.3 mg/dL (8.4-10.2); GFR AFRICAN-AMERICAN > 60; GFR NON-AFRICAN AMERICAN > 60
== END 2017-10-22 21:31 | disposition home or self-care (01) ==
LOC: H.ER 17:18
DX: G40.909 Epilepsy, unspecified, not intractable, without status epilepticus (principal); F10.129 Alcohol abuse with intoxication, unspecified; F17.210 Nicotine dependence, cigarettes, uncomplicated; G89.29 Other chronic pain; Z86.718 Personal history of other venous thrombosis and embolism; Z88.6 Allergy status to analgesic agent

== ENCOUNTER 2017-10-23 02:15 | Emergency (ER) | payer MEDICAID ==
[2017-10-23 02:34] VITALS: BMI 17.6
--- NOTE | 2017-10-23 04:49 | ED PDOC ---
HPI: General Adult Time Seen by Provider: 10/23/17 02:47 Chief Complaint (Nursing): Seizure History Per: Patient History/Exam Limitations: no limitations Recently: Seen In ED Additional Complaint(s): 52-year-old male presents to ED for no specific complaint(s). Patient reports he is tired and wants to sleep. Patient is requesting a sandwich. Patient was seen yesterday twice for different complaints. Denies any other complaints. Patient is well known to the provider and ED staff for multiple visits for seizures and alcohol intoxications. PMD: No Family Provider Past Medical History Reviewed: Historical Data, Nursing Documentation, Vital Signs Vital Signs: Last Vital Signs Temp 97.5 F L 10/23/17 02:37 Pulse 74 10/23/17 02:37 Resp 18 10/23/17 02:37 BP 117/66 10/23/17 02:37 Pulse Ox 100 10/23/17 04:55 - Medical History PMH: Anemia, Back Problems (herniated disc), Deep Vein Thrombosis, Fractures ( rib fx, left shoulder, Left hand 5th digit, Humerus fracture), Gastritis, Seizures (Patient takes Keppra for seizures), Chronic Pain (left shoulder) - Surgical History Surgical History: Endoscopy - Family History Family History: States: Unknown Family Hx - Social History Current smoker - smoking cessation education provided: Yes Alcohol: Occasional Drugs: Denies - Immunization History Hx Tetanus Toxoid Vaccination: Yes - Home Medications Home Medications: Ambulatory Orders Medication Instructions Recorded levETIRAcetam [Keppra] 500 mg PO BID 30 Days #60 tab 10/16/17 Famotidine [Pepcid] 20 mg PO DAILY PRN #6 tab 10/17/17 Omeprazole Magnesium [Prilosec Otc] 20 mg PO DAILY #5 tablet. 10/22/17 - Allergies Allergies/Adverse Reactions: Allergies Allergy/AdvReac Type Severity Reaction Status Date / Time aspirin Allergy NAUSEA Verified 10/22/17 02:02 ibuprofen [From Motrin] Allergy NAUSEA Verified 10/22/17 02:02 naproxen Allergy RASH Verified 10/22/17 02:02 NSAIDS (Non-Steroidal Allergy NAUSEA Verified 10/22/17 02:02 Anti-Inflamma Review of Systems ROS Statement: Except As Marked, All Systems Reviewed And Found Negative Physical Exam - Reviewed Nursing Documentation Reviewed: Yes Vital Signs Reviewed: Yes - Physical Exam Appears: Positive for: Well (Comfortable), No Acute Distress Head Exam: Positive for: ATRAUMATIC Eye Exam: Positive for: EOMI, Normal appearance, PERRL Cardiovascular/Chest: Positive for: Regular Rate, Rhythm Extremity: Positive for: Normal ROM Neurologic/Psych: Positive for: Alert, Oriented (x 3), Gait (Steady) - ECG O2 Sat by Pulse Oximetry: 100 (RA) Pulse Ox Interpretation: Normal Medical Decision Making Medical Decision Making: Impression(s): Malingering Upon provider evaluation patient is medically stable, and requires no further treatment in the ED at this time. Patient will be discharged. There is agreement to discharge plan. Scribe Attestation: Documented by Foster Romero, acting as a scribe for Cathy Salazar MD. Provider Scribe Attestation: All medical record entries made by the Scribe were at my direction and personally dictated by me. I have reviewed the chart and agree that the record accurately reflects my personal performance of the history, physical exam, medical decision making, and the department course for this patient. I have also personally directed, reviewed, and agree with the discharge instructions and disposition. Disposition - Clinical Impression Clinical Impression: Malingering, Epileptic seizures - Patient ED Disposition Is Patient to be Admitted: No - Disposition Referrals: [facility] [Outside] Disposition: Routine/Home Disposition Time: 04:40 Condition: GOOD Additional Instructions: Follow up with your PCP and neurologist within 2-3 days. Instructions: Seizures, Adult (DC)
[2017-10-23 07:06] VITALS: BP 120/72; PULSE 76; RESP 16; TEMP 97.8; O2SAT 99
== END 2017-10-23 05:40 | disposition home or self-care (01) ==
LOC: H.ER 02:15
DX: Z86.69 Personal history of other diseases of the nervous system and sense organs (principal); Z76.5 Malingerer [conscious simulation]

== ENCOUNTER 2017-10-23 11:26 | Emergency (ER) | payer MEDICAID ==
[2017-10-23 11:27] VITALS: BMI 17.6
[2017-10-23 11:56] VITALS: BP 111/59; PULSE 98; TEMP 98.4; O2SAT 97
[2017-10-23 12:14] VITALS: RESP 18
--- NOTE | 2017-10-23 13:02 | ED PDOC ---
HPI: Seizure Time Seen by Provider: 10/23/17 12:45 Chief Complaint (Nursing): Seizure Chief Complaint (Provider): Seizure History Per: Patient History/Exam Limitations: no limitations Recent Seizure Activity Began: Unknown Number Of Seizures: Multiple Length Of Seizures (Duration): Unknown Quality Of Seizure: Generalized Precipitating Factor(s): None Post-ictal Period: No Additional Complaint(s): Pt presents for the fourth time in twenty four hours complaining of seizures; he indicates that he did follow up with a neurologist yesterday who adjusted his dose of keppra but he has not yet taken the increased dosage. Pt provides no other information, appears comfortable and by note, is well known to this ED and provider for presentation for the same complaint, often changing his mind once arriving Past Medical History Reviewed: Historical Data, Nursing Documentation Vital Signs: Last Vital Signs Temp 98.4 F 10/23/17 12:09 Pulse 98 H 10/23/17 12:09 Resp 18 10/23/17 12:09 BP 111/59 L 10/23/17 12:09 Pulse Ox 97 10/23/17 13:02 - Medical History PMH: Anemia, Back Problems (herniated disc), Deep Vein Thrombosis, Fractures ( rib fx, left shoulder, Left hand 5th digit, Humerus fracture), Gastritis, Seizures (Patient takes Keppra for seizures), Chronic Pain (left shoulder) - Surgical History Surgical History: Endoscopy - Family History Family History: States: Unknown Family Hx - Immunization History Hx Tetanus Toxoid Vaccination: Yes - Home Medications Home Medications: Ambulatory Orders Medication Instructions Recorded levETIRAcetam [Keppra] 500 mg PO BID 30 Days #60 tab 10/16/17 Famotidine [Pepcid] 20 mg PO DAILY PRN #6 tab 10/17/17 Omeprazole Magnesium [Prilosec Otc] 20 mg PO DAILY #5 tablet. 10/22/17 - Allergies Allergies/Adverse Reactions: Allergies Allergy/AdvReac Type Severity Reaction Status Date / Time aspirin Allergy NAUSEA Verified 10/22/17 02:02 ibuprofen [From Motrin] Allergy NAUSEA Verified 10/22/17 02:02 naproxen Allergy RASH Verified 10/22/17 02:02 NSAIDS (Non-Steroidal Allergy NAUSEA Verified 10/22/17 02:02 Anti-Inflamma Review of Systems ROS Statement: Except As Marked, All Systems Reviewed And Found Negative Neurological: Positive for: Seizures Physical Exam - Reviewed Nursing Documentation Reviewed: Yes - Physical Exam Appears: Positive for: Well, Non-toxic, No Acute Distress Head Exam: Positive for: ATRAUMATIC, NORMAL INSPECTION, NORMOCEPHALIC Skin: Positive for: Normal Color, Warm Eye Exam: Positive for: Normal appearance. Negative for: Nystagmus, Periorbital swelling, Periorbital tenderness Neck: Positive for: Normal. Negative for: Decreased ROM Cardiovascular/Chest: Positive for: Regular Rate, Rhythm, Chest Non Tender. Negative for: Edema, Gallop, Murmur, Bradycardia, Tachycardia Respiratory: Positive for: Normal Breath Sounds. Negative for: Decreased Breath Sounds, Accessory Muscle Use, Crackles, Rales Pulses-Carotid (L): 2+ Pulses-Carotid (R): 2+ Pulses-Radial (L): 2+ Pulses-Radial (R): 2+ - ECG O2 Sat by Pulse Oximetry: 97 Medical Decision Making Medical Decision Making: after PE patient informed nursing staff that he does not desire treatment and wishes to sign out AMA Disposition - Clinical Impression Clinical Impression: Seizure - Patient ED Disposition Is Patient to be Admitted: No Counseled Patient/Family Regarding: Need For Followup - Disposition Disposition: Against Medical Advice Disposition Time: 13:01 Condition: GOOD Instructions: Seizures, Adult (DC), Seizures Forms: [email or web address] (Indonesian)
== END 2017-10-23 13:17 | disposition left against medical advice (07) ==
LOC: H.ER 11:26
DX: G40.909 Epilepsy, unspecified, not intractable, without status epilepticus (principal)

== ENCOUNTER 2017-10-23 14:35 | Emergency (ER) | payer MEDICAID ==
[2017-10-23 14:35] VITALS: BMI 17.6
[2017-10-23 14:43] VITALS: BP 109/54; PULSE 91; RESP 20; TEMP 98.9; O2SAT 97
--- NOTE | 2017-10-23 15:18 | ED PDOC ---
HPI: Seizure Time Seen by Provider: 10/23/17 15:14 Chief Complaint (Nursing): Seizure Chief Complaint (Provider): "i had two seizures" History Per: Patient Additional Complaint(s): Pt reports he had two seizures prior to arrival. Reports he is hungry as well and just ordered a pizza to the ER. No incontinence or head injury or bit tongue or any injury. No other complaints. Past Medical History Reviewed: Historical Data, Nursing Documentation, Vital Signs Vital Signs: Last Vital Signs Temp 98.9 F 10/23/17 14:39 Pulse 91 H 10/23/17 14:39 Resp 20 10/23/17 14:39 BP 109/54 L 10/23/17 14:39 Pulse Ox 97 10/23/17 15:21 - Medical History PMH: Anemia, Back Problems (herniated disc), Deep Vein Thrombosis, Fractures ( rib fx, left shoulder, Left hand 5th digit, Humerus fracture), Gastritis, Seizures (Patient takes Keppra for seizures), Chronic Pain (left shoulder) - Surgical History Surgical History: Endoscopy - Family History Family History: States: Unknown Family Hx - Living Arrangements Living Arrangements: Other (Undomiciled) - Social History Current smoker - smoking cessation education provided: Yes - Immunization History Hx Tetanus Toxoid Vaccination: Yes - Home Medications Home Medications: Ambulatory Orders Medication Instructions Recorded levETIRAcetam [Keppra] 500 mg PO BID 30 Days #60 tab 10/16/17 Famotidine [Pepcid] 20 mg PO DAILY PRN #6 tab 10/17/17 Omeprazole Magnesium [Prilosec Otc] 20 mg PO DAILY #5 tablet. 10/22/17 - Allergies Allergies/Adverse Reactions: Allergies Allergy/AdvReac Type Severity Reaction Status Date / Time aspirin Allergy NAUSEA Verified 10/23/17 14:38 ibuprofen [From Motrin] Allergy NAUSEA Verified 10/23/17 14:38 naproxen Allergy RASH Verified 10/23/17 14:38 NSAIDS (Non-Steroidal Allergy NAUSEA Verified 10/23/17 14:38 Anti-Inflamma Review of Systems ROS Statement: Except As Marked, All Systems Reviewed And Found Negative (and as per HPI) Physical Exam - Reviewed Nursing Documentation Reviewed: Yes Vital Signs Reviewed: Yes - Physical Exam Appears: Positive for: Well, Non-toxic, No Acute Distress Head Exam: Positive for: ATRAUMATIC, NORMOCEPHALIC Skin: Positive for: Warm, Dry Eye Exam: Positive for: EOMI. Negative for: Nystagmus Cardiovascular/Chest: Positive for: Regular Rate, Rhythm Respiratory: Negative for: Accessory Muscle Use, Respiratory Distress Extremity: Positive for: Normal ROM. Negative for: Deformity Neurologic/Psych: Positive for: Alert, Oriented (x3). Negative for: Motor/ Sensory Deficits - ECG O2 Sat by Pulse Oximetry: 97 Medical Decision Making Medical Decision Making: Pt known well to ED for multiple visits for same issue. In fact, he was just discharged from the ER about 1.5 hours ago. During his 5 prior visits over the last 24 hours he had no seizures nor had any signs of just having a seizure. While pt does have true medical conditions, these appear stable at this time and he clearly demonstrates malingering behavior. Stable for DC. Disposition - Clinical Impression Clinical Impression: Malingering - Disposition Referrals: [facility] [Outside] Disposition: Routine/Home Disposition Time: 15:20 Condition: GOOD Additional Instructions: TAKE YOUR MEDICATIONS PRESCRIBED Instructions: Seizures, Adult (DC)
== END 2017-10-23 15:24 | disposition home or self-care (01) ==
LOC: H.ER 14:35
DX: Z76.5 Malingerer [conscious simulation] (principal)

== ENCOUNTER 2017-10-23 16:50 | Emergency (ER) | payer MEDICAID ==
--- NOTE | 2017-10-23 16:57 | ED PDOC ---
HPI: General Adult Time Seen by Provider: 10/23/17 16:54 Chief Complaint (Provider): Pt reports seizure History Per: Patient History/Exam Limitations: no limitations Onset/Duration Of Symptoms: Days Have you had recent travel within the past 21 days to any of the following countries: [place], [place], [place] or [place]?: No Current Symptoms Are (Timing): Still Present Additional Complaint(s): 52 yo male presents for 3rd visit today. Pt was discharge and states after discharge he had a seizure however patient was seen by blog writer sitting in waiting room and in park comfortably. Past Medical History Reviewed: Historical Data, Nursing Documentation, Vital Signs Vital Signs: Last Vital Signs Temp 98.9 F 10/23/17 17:05 Pulse 100 H 10/23/17 17:05 Resp 20 10/23/17 17:05 BP 125/68 10/23/17 17:05 Pulse Ox 98 10/23/17 17:05 - Medical History PMH: Anemia, Back Problems (herniated disc), Deep Vein Thrombosis, Fractures ( rib fx, left shoulder, Left hand 5th digit, Humerus fracture), Gastritis, Seizures (Patient takes Keppra for seizures), Chronic Pain (left shoulder) - Surgical History Surgical History: Endoscopy - Family History Family History: States: Unknown Family Hx - Immunization History Hx Tetanus Toxoid Vaccination: Yes - Home Medications Home Medications: Ambulatory Orders Medication Instructions Recorded levETIRAcetam [Keppra] 500 mg PO BID 30 Days #60 tab 10/16/17 Famotidine [Pepcid] 20 mg PO DAILY PRN #6 tab 10/17/17 Omeprazole Magnesium [Prilosec Otc] 20 mg PO DAILY #5 tablet. 10/22/17 - Allergies Allergies/Adverse Reactions: Allergies Allergy/AdvReac Type Severity Reaction Status Date / Time aspirin Allergy NAUSEA Verified 10/23/17 14:38 ibuprofen [From Motrin] Allergy NAUSEA Verified 10/23/17 14:38 naproxen Allergy RASH Verified 10/23/17 14:38 NSAIDS (Non-Steroidal Allergy NAUSEA Verified 10/23/17 14:38 Anti-Inflamma Review of Systems ROS Statement: Except As Marked, All Systems Reviewed And Found Negative Constitutional: Negative for: Fever, Chills Neurological: Positive for: Seizures. Negative for: Altered Mental Status, Headache Physical Exam - Reviewed Nursing Documentation Reviewed: Yes Vital Signs Reviewed: Yes - Physical Exam Appears: Positive for: Well, Non-toxic, No Acute Distress Head Exam: Positive for: ATRAUMATIC, NORMAL INSPECTION, NORMOCEPHALIC Skin: Positive for: Normal Color, Warm, DRY Eye Exam: Positive for: Normal appearance, EOMI, PERRL ENT: Positive for: Normal ENT Inspection Neck: Positive for: Normal, Painless ROM Cardiovascular/Chest: Positive for: Regular Rate, Rhythm Respiratory: Positive for: Normal Breath Sounds. Negative for: Accessory Muscle Use, Respiratory Distress Gastrointestinal/Abdominal: Positive for: Normal Exam, Soft. Negative for: Tenderness Back: Positive for: Normal Inspection Extremity: Positive for: Normal ROM Neurologic/Psych: Positive for: Alert, crown buffer II-XII, Oriented, Gait. Negative for : Aphasia, Facial Droop Disposition - Clinical Impression Clinical Impression: Malingerer [conscious simulation] - Patient ED Disposition Is Patient to be Admitted: No Counseled Patient/Family Regarding: Diagnosis, Need For Followup - Disposition Disposition: Routine/Home Disposition Time: 16:56 Condition: GOOD
[2017-10-23 17:15] VITALS: BP 125/68; PULSE 100; RESP 20; TEMP 98.9; O2SAT 98
== END 2017-10-23 17:12 | disposition home or self-care (01) ==
LOC: H.ER 16:50
DX: Z76.5 Malingerer [conscious simulation] (principal)

== ENCOUNTER 2017-10-24 07:55 | Emergency (ER) | payer MEDICAID ==
--- NOTE | 2017-10-24 08:00 | ED PDOC ---
HPI: General Adult Time Seen by Provider: 10/24/17 07:58 History Per: Patient (C/o generalized weakness. Does not recall actual seizure. No LOC. No injury) Onset/Duration Of Symptoms: Unknown Current Symptoms Are (Timing): Better Past Medical History - Medical History PMH: Anemia, Back Problems (herniated disc), Deep Vein Thrombosis, Fractures ( rib fx, left shoulder, Left hand 5th digit, Humerus fracture), Gastritis, Seizures (Patient takes Keppra for seizures), Chronic Pain (left shoulder) - Surgical History Surgical History: Endoscopy - Family History Family History: States: Unknown Family Hx - Immunization History Hx Tetanus Toxoid Vaccination: Yes - Home Medications Home Medications: Ambulatory Orders Medication Instructions Recorded levETIRAcetam [Keppra] 500 mg PO BID 30 Days #60 tab 10/16/17 Famotidine [Pepcid] 20 mg PO DAILY PRN #6 tab 10/17/17 Omeprazole Magnesium [Prilosec Otc] 20 mg PO DAILY #5 tablet. 10/22/17 - Allergies Allergies/Adverse Reactions: Allergies Allergy/AdvReac Type Severity Reaction Status Date / Time aspirin Allergy NAUSEA Verified 10/23/17 14:38 ibuprofen [From Motrin] Allergy NAUSEA Verified 10/23/17 14:38 naproxen Allergy RASH Verified 10/23/17 14:38 NSAIDS (Non-Steroidal Allergy NAUSEA Verified 10/23/17 14:38 Anti-Inflamma Review of Systems Constitutional: Negative for: Fever Cardiovascular: Negative for: Chest Pain Respiratory: Negative for: Shortness of Breath Gastrointestinal: Negative for: Abdominal Pain Neurological: Negative for: Weakness Physical Exam - Physical Exam Appears: Positive for: Non-toxic, No Acute Distress Head Exam: Positive for: ATRAUMATIC, NORMAL INSPECTION, NORMOCEPHALIC Skin: Positive for: Normal Color, Warm, DRY Eye Exam: Positive for: EOMI, PERRL Neck: Positive for: Normal, Painless ROM Cardiovascular/Chest: Positive for: Regular Rate, Rhythm Respiratory: Positive for: CNT, Normal Breath Sounds Extremity: Positive for: Normal ROM Neurologic/Psych: Positive for: Alert, Oriented. Negative for: Motor/Sensory Deficits Disposition - Clinical Impression Clinical Impression: Weakness - Disposition Referrals: [facility] [Outside] Disposition: Routine/Home Disposition Time: 08:00 Condition: FAIR Instructions: Weakness (ED)
[2017-10-24 08:03] VITALS: BP 115/66; PULSE 82; TEMP 97; O2SAT 100
== END 2017-10-24 08:22 | disposition home or self-care (01) ==
LOC: H.ER 07:55
DX: M62.81 Muscle weakness (generalized) (principal)

== ENCOUNTER 2017-10-24 21:06 | Emergency (ER) | payer MEDICAID ==
[2017-10-24 21:26] VITALS: RESP 18; TEMP 98
[2017-10-24 22:35] VITALS: BP 130/75; PULSE 101; O2SAT 99
== END 2017-10-24 22:35 | disposition left against medical advice (07) ==
LOC: H.ER 21:06
DX: Z02.89 Encounter for other administrative examinations (principal)

== ENCOUNTER 2017-10-24 23:51 | Observation (INO) | payer MEDICAID ==
[2017-10-25 00:26] LABS: HEMOGLOBIN 8.4 g/dL (12.0-18.0); MEAN CELL VOLUME 87.8 fl (80.0-94.0); MEAN CORPUSCULAR HEMOGLOBIN 28.9 pg (27.0-31.0); MEAN CORPUSCULAR HGB CONC 32.9 g/dL (33.0-37.0); RBC 2.91 Mil/uL (4.40-5.90); WHITE BLOOD COUNT 6.7 K/uL (4.8-10.8)
[2017-10-25] MEDS ORDERED: Pantoprazole 40 MG in Sodium Chloride 0.9% 100 ML IVPB STA (00:44)
[2017-10-25] MEDS ORDERED: Pantoprazole 80 MG in Sodium Chloride 0.9% 100 ML IVPB STA (00:53)
[2017-10-25 01:37] LABS: URINE BACTERIA RARE (<OCC); URINE BILIRUBIN NEGATIVE (NEGATIVE); URINE BLOOD NEGATIVE (NEGATIVE); URINE CLARITY SLIGHTY-CLOUDY (Clear); URINE COLOR YELLOW (YELLOW); URINE GLUCOSE (UA) NEG (Normal); URINE LEUKOCYTE ESTERASE NEG Leu/uL (Negative); URINE PROTEIN NEGATIVE (NEGATIVE)
[2017-10-25 01:52] LABS: INR 1.5 (0.9-1.2); PARTIAL THROMBOPLASTIN TIME 37.3 Seconds (25.6-37.1); PROTHROMBIN TIME 16.3 Seconds (9.8-13.1)
--- NOTE | 2017-10-25 02:00 | ED PDOC ---
HPI:Nausea, Vomiting, Diarrhea Time Seen by Provider: 10/25/17 00:05 Chief Complaint (Nursing): GI Problem Chief Complaint (Provider): GI Problem History Per: Patient History/Exam Limitations: no limitations Onset/Duration Of Symptoms: Days (x1) Current Symptoms Are (Timing): Still Present Additional Complaint(s): 52 year old male, well-known to ED and provider with medical history of a GI bleed, presents to the emergency department with 3 episodes of bright red vomiting associated with bloody stools ongoing since this morning. He denies any chest pain, weakness, abdominal pain or trauma. PMD: none provided Past Medical History Reviewed: Historical Data, Nursing Documentation, Vital Signs Vital Signs: Last Vital Signs Temp 98.2 F 10/24/17 23:55 Pulse 96 H 10/25/17 00:11 Resp 20 10/24/17 23:55 BP 121/66 10/24/17 23:55 Pulse Ox 100 10/24/17 23:55 - Medical History PMH: Anemia, Back Problems (herniated disc), Deep Vein Thrombosis, Fractures ( rib fx, left shoulder, Left hand 5th digit, Humerus fracture), Gastritis, Seizures (Patient takes Keppra for seizures), Chronic Pain (left shoulder) - Surgical History Surgical History: Endoscopy - Family History Family History: States: Unknown Family Hx - Social History Current smoker - smoking cessation education provided: Yes Alcohol: Occasional Drugs: Denies - Immunization History Hx Tetanus Toxoid Vaccination: Yes - Home Medications Home Medications: Ambulatory Orders Medication Instructions Recorded Omeprazole Magnesium [Prilosec Otc] 20 mg PO DAILY #5 tablet. 10/22/17 Sulfamethoxazole/Trimethoprim 1 each PO BID 10/25/17 [Sulfamethoxazole-Tmp Ss Tablet] levETIRAcetam [Keppra] 500 mg PO Q12H 10/25/17 - Allergies Allergies/Adverse Reactions: Allergies Allergy/AdvReac Type Severity Reaction Status Date / Time aspirin Allergy NAUSEA Verified 10/24/17 23:54 ibuprofen [From Motrin] Allergy NAUSEA Verified 10/24/17 23:54 naproxen Allergy RASH Verified 10/24/17 23:54 NSAIDS (Non-Steroidal Allergy NAUSEA Verified 10/24/17 23:54 Anti-Inflamma Review of Systems ROS Statement: Except As Marked, All Systems Reviewed And Found Negative Constitutional: Negative for: Weakness Cardiovascular: Negative for: Chest Pain Gastrointestinal: Positive for: Hematochezia, Hematemesis (x3). Negative for: Abdominal Pain, Other (trauma) Physical Exam - Reviewed Nursing Documentation Reviewed: Yes Vital Signs Reviewed: Yes - Physical Exam Appears: Positive for: Non-toxic, No Acute Distress Head Exam: Positive for: ATRAUMATIC, NORMAL INSPECTION, NORMOCEPHALIC Skin: Positive for: Normal Color Eye Exam: Positive for: Normal appearance ENT: Positive for: Normal ENT Inspection. Negative for: Pharyngeal Erythema, Tonsillar Swelling Neck: Positive for: Normal Cardiovascular/Chest: Positive for: Chest Non Tender, Tachycardia Respiratory: Positive for: Normal Breath Sounds. Negative for: Wheezing, Respiratory Distress Gastrointestinal/Abdominal: Positive for: Normal Exam, Soft. Negative for: Tenderness Back: Positive for: Normal Inspection. Negative for: L CVA Tenderness, R CVA Tenderness Rectal: Positive for: Rectal Tone Is: (intact), Hemorrhoids (no bleeding), Other (stool is brown). Negative for: Black Stool, Blood Streaked Stool Extremity: Positive for: Normal ROM (upper/lower) Neurologic/Psych: Positive for: Alert, Oriented. Negative for: Motor/Sensory Deficits - Laboratory Results Result Diagrams: 10/25/17 00:20 10/25/17 01:20 - ECG O2 Sat by Pulse Oximetry: 100 (RA) Pulse Ox Interpretation: Normal Medical Decision Making Medical Decision Making: Initial Impression: Hematemesis; Hematochezia Initial Plan: * Type and screen * EKG * Alcohol serum * CMP * CBC * PTT * Patient * CXR * Protonix IVPB * Occult blood, stool * UA Time: 0130 --Previous labs reviewed: last hemoglobin count on 10/19/17 noted is 9.3. --Hemoglobin has dropped when compared to today's ED visit. --Case d/w Dr. Washington who recommends admission and routine GI consult Case d/w Dr. Chou and arrangements made for admission. Scribe Attestation: Documented by Dulce Hoffmann, acting as a scribe for Lincoln Olivier PA-C. Provider Scribe Attestation: All medical record entries made by the Scribe were at my direction and personally dictated by me. I have reviewed the chart and agree that the record accurately reflects my personal performance of the history, physical exam, medical decision making, and the department course for this patient. I have also personally directed, reviewed, and agree with the discharge instructions and disposition. Disposition - Clinical Impression Clinical Impression: GI bleed, Anemia - Patient ED Disposition Is Patient to be Admitted: Yes - Disposition Disposition Time: 00:20 Condition: STABLE
[2017-10-25 02:01] LABS: ALB/GLOB RATIO 0.7 (1.0-2.1); ALBUMIN 3.1 g/dL (3.5-5.0); ALT/SGPT 64 U/L (21-72); AST/SGOT 131 U/L (17-59); BLOOD UREA NITROGEN 17 mg/dl (9-20); GFR AFRICAN-AMERICAN > 60; GFR NON-AFRICAN AMERICAN > 60
[2017-10-25] MEDS ORDERED: Multivitamin (MVI) 10 ML, Folic Acid 1 MG, Thiamine 100 MG in Dextrose 5%/0.45% NS 1,00... IV ONE (04:58)
--- NOTE | 2017-10-25 05:53 | CP.PCM.HP ---
History of Present Illness - History of Present Illness History of Present Illness: 52 year old M w/ PMH of seizures, Hepatic encephalopathy, Alcoholic liver Cirrhosis with TIPS procedure presented to the ED with 3 episodes of bloody bright red vomits along with 3 episodes of bloody stools. Denies consumption of alcohol tonight . States he was with his friends "hanging out" when he felt nauseous had 3 consecutive bouts of bright red vomits and then had episodes of bloody stool following that. He then states he felt dizzy and hit his head on the floor however did not loose consciousness, he then got up and had one more episode of vomiting. Denies any seizure like activity. Patient is a poor historian secondary to his intoxication. PMD: [facility]. PMHx: ETOH abuse, denies drinking alcohol last night (however alcohol level in ED was 181), Epilepsy controlled via Keppra 500mg BID Meds: Keppra 500mg PO BID PsurgHx: TIPS in 2014 PHospHx: multiple ED visits for ETOH abuse, Hepatic Encelopathy SocialHx:2-3 cigarettes per day, ETOH and denies illicit drug use FamilyHx: Father MA, mother breast cancer, siblings alive, sister recently diagnosed with colon cancer Next of kin: Sister Missy: [phone] Code Status: full code Present on Admission - Present on Admission Any Indicators Present on Admission: No Review of Systems - Review of Systems All systems: reviewed and no additional remarkable complaints except Past Patient History - Infectious Disease Hx of Infectious Diseases: None - Tetanus Immunizations Tetanus Immunization: Unknown - Past Medical History & Family History Past Medical History?: Yes - Past Social History Alcohol: Occasional Drugs: Denies - NEUROLOGICAL Hx Neurological Disorder: Yes - HEENT Hx HEENT Problems: No - ENDOCRINE/METABOLIC Hx Endocrine Disorders: No - HEMATOLOGICAL/ONCOLOGICAL Hx Anemia: Yes - INTEGUMENTARY Hx Cellulitis: Yes - MUSCULOSKELETAL/RHEUMATOLOGICAL Hx Fractures: Yes (rib fx, left shoulder, Left hand 5th digit, Humerus fracture) - GASTROINTESTINAL Hx Gastritis: Yes - PSYCHIATRIC Hx Psychophysiologic Disorder: No - SURGICAL HISTORY Other/Comment: hepatic stent - ANESTHESIA Hx Anesthesia: Yes Hx Anesthesia Reactions: No Hx Malignant Hyperthermia: No Meds Allergies/Adverse Reactions: Allergies Allergy/AdvReac Type Severity Reaction Status Date / Time aspirin Allergy NAUSEA Verified 10/24/17 23:54 ibuprofen [From Motrin] Allergy NAUSEA Verified 10/24/17 23:54 naproxen Allergy RASH Verified 10/24/17 23:54 NSAIDS (Non-Steroidal Allergy NAUSEA Verified 10/24/17 23:54 Anti-Inflamma Physical Exam - Constitutional Appears: No Acute Distress - Head Exam Head Exam: ATRAUMATIC, NORMAL INSPECTION, NORMOCEPHALIC - Eye Exam Eye Exam: Normal appearance Pupil Exam: NORMAL ACCOMODATION - ENT Exam ENT Exam: Mucous Membranes Moist - Respiratory Exam Respiratory Exam: Clear to Auscultation Bilateral. absent: Rhonchi, Wheezes - Cardiovascular Exam Cardiovascular Exam: REGULAR RHYTHM, +S1, +S2 - GI/Abdominal Exam GI & Abdominal Exam: Guarding, Normal Bowel Sounds, Soft, Tenderness ( epigastric tenderness noted) - Extremities Exam Extremities exam: Positive for: normal inspection. Negative for: calf tenderness - Neurological Exam Neurological exam: Alert, CN II-XII Intact, Oriented x3 - Skin Additional comments: Base of left foot, has dry peeling dermatitis Results - Vital Signs Recent Vital Signs: Last Vital Signs Temp 98.8 F 10/25/17 05:18 Pulse 96 H 10/25/17 05:18 Resp 18 10/25/17 05:18 BP 138/68 10/25/17 05:18 Pulse Ox 95 10/25/17 05:18 - Labs Result Diagrams: 10/25/17 00:20 10/25/17 01:20 Labs: Laboratory Results - last 24 hr 10/25/17 10/25/17 10/25/17 00:20 01:20 01:20 WBC 6.7 RBC 2.91 L Hgb 8.4 L Hct 25.6 L MCV 87.8 MCH 28.9 MCHC 32.9 L RDW 21.0 H Plt Count 74 L PT 16.3 H INR 1.5 H APTT 37.3 H Sodium 145 Potassium 3.9 Chloride 109 H Carbon Dioxide 19 L Anion Gap 21 H BUN 17 Creatinine 1.1 Est GFR ( Amer) > 60 Est GFR (Non-Af Amer) > 60 Random Glucose 103 Calcium 8.0 L Total Bilirubin 1.7 H AST 131 H ALT 64 Alkaline Phosphatase 317 H D Total Protein 7.4 Albumin 3.1 L Globulin 4.3 H Albumin/Globulin Ratio 0.7 L Urine Color Urine Clarity Urine pH Ur Specific Ryan Urine Protein Urine Glucose (UA) Urine Ketones Urine Blood Urine Nitrate Urine Bilirubin Urine Urobilinogen Ur Leukocyte Esterase Urine RBC (Auto) Urine Microscopic WBC Urine Bacteria Stool Occult Blood Alcohol, Quantitative 181 H Blood Type Antibody Screen BBK History Checked 10/25/17 10/25/17 01:20 01:20 WBC RBC Hgb Hct MCV MCH MCHC RDW Plt Count PT INR APTT Sodium Potassium Chloride Carbon Dioxide Anion Gap BUN Creatinine Est GFR ( Amer) Est GFR (Non-Af Amer) Random Glucose Calcium Total Bilirubin AST ALT Alkaline Phosphatase Total Protein Albumin Globulin Albumin/Globulin Ratio Urine Color Yellow Urine Clarity Slighty-cloudy Urine pH 6.0 Ur Specific Ryan 1.024 Urine Protein Negative Urine Glucose (UA) Neg Urine Ketones Negative Urine Blood Negative Urine Nitrate Negative Urine Bilirubin Negative Urine Urobilinogen 4.0 Ur Leukocyte Esterase Neg Urine RBC (Auto) 4 H Urine Microscopic WBC 1 Urine Bacteria Rare Stool Occult Blood Negative Alcohol, Quantitative Blood Type O POSITIVE Antibody Screen Negative BBK History Checked Patient has bt Assessment & Plan - Assessment and Plan (Free Text) Assessment: 52 yo m, PMhx/o for Seizures, ETOH Abuse, Hepatic encephalopathy, Alcohol Liver Cirrhosis with TIPs procedure admitted for GI bleeding Assessment/Plan 1) Upper GI bleeding NPO -hematemesis at home -LALITHA normal (brown stool), Guaiac neg - Hb dropped from 10/19/17 from 9.3 to 8.4 -s/p Pantoprazol 40 ED - Protonix 40 IVP ordered, - Protonix drip 8mg/hr ordered -Banana bag @125 ml/h -GI consulted -f/u AM CBC 2) Acute on chronic anemia -Possibly secondary to blood loss -chronic liver disease, cirrhosis and hypersplenism Hgb: 8.4 -f/u cbc 3) Seizure disorder -c/w Home keppra 500 mg BID -will give IV while NPO for GI bleeding 4) Hx/o ETOH abuse -alcohol withdrawal protocol 5) DVT prophylaxis -SCDs -due to suspected GI bleeding and thrombocytopenia
[2017-10-25] MEDS: Pantoprazole 40 MG in Sodium Chloride 0.9% 100 ML IVPB SCH ×2 (07:03→11:15)
[2017-10-25 07:09] LABS: HEMOGLOBIN 8.1 g/dL (12.0-18.0); MEAN CELL VOLUME 87.7 fl (80.0-94.0); MEAN CORPUSCULAR HEMOGLOBIN 28.7 pg (27.0-31.0); MEAN CORPUSCULAR HGB CONC 32.7 g/dL (33.0-37.0); RBC 2.81 Mil/uL (4.40-5.90); RED CELL DISTRIBUTION WIDTH 20.8 % (11.5-14.5); WHITE BLOOD COUNT 3.8 K/uL (4.8-10.8)
--- NOTE | 2017-10-25 08:08 | CT ---
PROCEDURE: CT HEAD WITHOUT CONTRAST. HISTORY: head trauma vomiting COMPARISON: CT head dated 10/20/2017 TECHNIQUE: Axial computed tomography images were obtained through the head/brain without intravenous contrast. Radiation dose: Total exam DLP = 771 mGy-cm. This CT exam was performed using one or more of the following dose reduction techniques: Automated exposure control, adjustment of the mA and/or kV according to patient size, and/or use of iterative reconstruction technique. FINDINGS: HEMORRHAGE: No intracranial hemorrhage. BRAIN: Severe brain parenchymal atrophy. Dilatation of the ventricles, likely secondary to central cerebral volume loss. Chronic microvascular ischemic changes/ gliosis in the brain parenchyma. VENTRICLES: Unremarkable. No hydrocephalus. CALVARIUM: Unremarkable. PARANASAL SINUSES: Mild mucosal thickening in the paranasal sinuses. MASTOID AIR CELLS: Unremarkable as visualized. No inflammatory changes. OTHER FINDINGS: Calcification of the arteries. IMPRESSION: Severe brain parenchymal atrophy. Dilatation of the ventricles, likely secondary to central cerebral volume loss. Chronic microvascular ischemic changes/ gliosis in the brain parenchyma. If symptoms persists, consider MRI. These findings were preliminarily reported at 6:59 a.m. on 10/25/[address] Obdulio Ricardo from [facility].
[2017-10-25 08:35] VITALS: RESP 20; TEMP 98.6; O2SAT 100
--- NOTE | 2017-10-25 08:39 | RAD ---
HISTORY: Radiograph 10/14/2017 COMPARISON: Portal chest FINDINGS: LUNGS: No active pulmonary disease. PLEURA: No significant pleural effusion identified, no pneumothorax apparent. CARDIOVASCULAR: Normal. OSSEOUS STRUCTURES: No significant abnormalities. VISUALIZED UPPER ABDOMEN: Normal. OTHER FINDINGS: None. IMPRESSION: No acute cardiopulmonary disease appreciated.
[2017-10-25] MEDS ORDERED: Chlorhexidine Gluconate 1 APPL/PKT TP ONE (08:52)
[2017-10-25] MEDS ORDERED: levETIRAcetam 500 MG in Sodium Chloride 0.9% 100 ML IVPB SCH ×2 (09:00→21:00)
--- NOTE | 2017-10-25 10:01 | CT ---
PROCEDURE: CT Abdomen and Pelvis without intravenous contrast HISTORY: gi bleed COMPARISON: None. TECHNIQUE: Helical CT of the abdomen and pelvis was performed without oral or intravenous contrast as per referring physician request. Contrast Dose: None Radiation dose: Total exam DLP = 448.02 mGy-cm. This CT exam was performed using one or more of the following dose reduction techniques: Automated exposure control, adjustment of the mA and/or kV according to patient size, and/or use of iterative reconstruction technique. FINDINGS: LOWER THORAX: Restrained motion degrades evaluation of the lung bases with linear atelectasis or fibrosis seen at the left lower lobe base. No definite pleural or pericardial effusion or definitive infiltrate appreciable. LIVER: A portosystemic venous shunt is reiterated in the liver with nodular cirrhotic liver periphery again appreciated. No interval density differences appreciable. GALLBLADDER AND BILE DUCTS: Gallbladder is distended once again but with limited radiodense cholelithiasis identified at the dependent portion. PANCREAS: Sequential peripancreatic reaction may indicate an element of pancreatitis. Clinically correlate. SPLEEN: Enlarged spleen remains, not significantly changed in size. ADRENALS: Unremarkable. No mass. KIDNEYS AND URETERS: No hydronephrosis. A stable inferior pole left renal hyper dense lesion is unchanged likely representing a small cyst once again. . VASCULATURE: Gastrohepatic ligament and possible esophageal varices are identified. BOWEL: Unremarkable. No obstruction. No gross mural thickening. APPENDIX: Unremarkable. Normal appendix. PERITONEUM: Unremarkable. No free fluid. No free air. LYMPH NODES: Unremarkable. No enlarged lymph nodes. BLADDER: Unremarkable. REPRODUCTIVE: Unremarkable. BONES: Left 9th, 10th and 11th rib fractures at an intermediate stage of healing. OTHER FINDINGS: None. IMPRESSION: 1. The lack of contrast agents limits interpretation of the bowel with moderate retained fecal material obscuring the colon. No overt large mass is seen involving the bowel and no prominent hyperdensities appears to suggest intraluminal hemorrhage. Consider follow-up nuclear gastrointestinal bleeding scan for added evaluation of potential acute gastrointestinal bleeding. 2. Stable splenomegaly with gastrohepatic ligament and esophageal varices appreciated as well as cirrhotic liver status post portosystemic shunt placement once again. 3. Questionable pancreatitis. Cholelithiasis. Clinically correlate further. 4. Multiple inferior left rib fractures at the intermediate stage of healing.
--- NOTE | 2017-10-25 11:02 | CP.PCM.CON ---
<Abelino Sherman - Last Filed: 10/25/17 11:31> History of Present Illness - History of Present Illness History of Present Illness: PGY5 GI Fellow Consult Note Patient is a 52yo male with PMHx significant for decompensated EtOH cirrhosis s/ p TIPS (2014), severe esophagitis and recently noted esophageal ulcer (September), EtOH withdrawal seizures who presented to the ED with complaint of hematemesis and hematochezia. The patient has presented to the ER multiple times , daily for the last month, often being discharged without issue. Yesterday, he again complained of nausea, vomiting specks of bright red blood and passing bloody stool simultaneously. Since admission he has had no episodes of either. Currently, he states he is hungry and wants to eat. Denies any complaints at present. He admits to ongoing EtOH abuse with intake multiple times this past week (as documented by multiple elevated EtOH levels daily this past week in EMR ). He is nonadherent with medications. 12 system ROS performed and negative except where stated PMHx: See HPI PSHx: TIPS in 2014 FHx: Father - PR; Mother - breast cancer; Sister - colon cancer @ 58yo Social: Denies EtOH use for >1 year but EtOH level +3 times in less than the past month; denies tobacco or illicit drug use Endo: EGD - 10/15/2017 - Esophageal ulcer, retained food Colonoscopy - 06/2017 - Poor prep, internal/external hemorrhoids EGD - 04/2017 - LA Grade C esophagitis with visible vessel at EGJ s/p clip and injection of epi, portal hypertensive gastropathy Past Patient History - Infectious Disease Hx of Infectious Diseases: None - Tetanus Immunizations Tetanus Immunization: Unknown - Past Medical History & Family History Past Medical History?: Yes - Past Social History Alcohol: Occasional Drugs: Denies - NEUROLOGICAL Hx Neurological Disorder: Yes - HEENT Hx HEENT Problems: No - RENAL Hx Chronic Kidney Disease: No - ENDOCRINE/METABOLIC Hx Endocrine Disorders: No - HEMATOLOGICAL/ONCOLOGICAL Hx Anemia: Yes - INTEGUMENTARY Hx Cellulitis: Yes - MUSCULOSKELETAL/RHEUMATOLOGICAL Hx Fractures: Yes (rib fx, left shoulder, Left hand 5th digit, Humerus fracture) - GASTROINTESTINAL Hx Gastritis: Yes - PSYCHIATRIC Hx Psychophysiologic Disorder: No - SURGICAL HISTORY Other/Comment: hepatic stent - ANESTHESIA Hx Anesthesia: Yes Hx Anesthesia Reactions: No Hx Malignant Hyperthermia: No Meds Allergies/Adverse Reactions: Allergies Allergy/AdvReac Type Severity Reaction Status Date / Time aspirin Allergy NAUSEA Verified 10/24/17 23:54 ibuprofen [From Motrin] Allergy NAUSEA Verified 10/24/17 23:54 naproxen Allergy RASH Verified 10/24/17 23:54 NSAIDS (Non-Steroidal Allergy NAUSEA Verified 10/24/17 23:54 Anti-Inflamma - Medications Medications: Current Medications Folic Acid (Folic Acid) 1 mg PO DAILY [facility] Last Admin: 10/25/17 09:13 Dose: 1 mg Multivitamins/Vitamin C 10 ml/Folic Acid 1 mg/ Thiamine HCl 100 mg/ Dextrose/ Sodium Chloride 1,011.2 mls @ 125 mls/hr IV .Q8H6M ONE Stop: 10/25/17 13:03 Last Admin: 10/25/17 06:49 Dose: 125 mls/hr Pantoprazole Sodium 40 mg/ (Sodium Chloride) 100 mls @ 20 mls/hr IVPB Q5H JANNIE PRN Reason: 8 MG/HR Last Admin: 10/25/17 07:03 Dose: 20 mls/hr Levetiracetam 500 mg/ Sodium (Chloride) 105 mls @ 210 mls/hr IVPB Q12 JANNIE Lorazepam (Ativan) 1 mg IVP Q4H PRN PRN Reason: Symptoms of alcohol withdrawl Phytonadione (Vitamin K Tab) 5 mg PO ONCE ONE Stop: 10/25/17 10:52 Physical Exam - Constitutional Appears: Non-toxic, No Acute Distress - Eye Exam Eye Exam: EOMI, PERRL - ENT Exam ENT Exam: Mucous Membranes Moist - Respiratory Exam Respiratory Exam: Clear to Auscultation Bilateral. absent: Rales, Rhonchi - Cardiovascular Exam Cardiovascular Exam: RRR, +S1, +S2 - GI/Abdominal Exam GI & Abdominal Exam: Soft. absent: Distended, Firm, Guarding, Organomegaly, Rigid, Tenderness - Rectal Exam Rectal Exam: Hemorrhoids (large internal/external). absent: Black Stool, Bloody Stool - Extremities Exam Extremities exam: Positive for: normal inspection. Negative for: pedal edema - Neurological Exam Neurological exam: Alert, Oriented x3 - Psychiatric Exam Psychiatric exam: Normal Affect, Normal Mood - Skin Skin Exam: Dry, Warm Results - Vital Signs Recent Vital Signs: Last Vital Signs Temp 98.6 F 10/25/17 09:00 Pulse 95 H 10/25/17 09:00 Resp 20 10/25/17 09:00 BP 119/56 L 10/25/17 09:00 Pulse Ox 100 10/25/17 09:00 - Labs Result Diagrams: 10/25/17 07:00 10/25/17 01:20 Labs: Laboratory Results - last 24 hr 10/25/17 10/25/17 10/25/17 00:20 01:20 01:20 WBC 6.7 RBC 2.91 L Hgb 8.4 L Hct 25.6 L MCV 87.8 MCH 28.9 MCHC 32.9 L RDW 21.0 H Plt Count 74 L PT 16.3 H INR 1.5 H APTT 37.3 H Sodium 145 Potassium 3.9 Chloride 109 H Carbon Dioxide 19 L Anion Gap 21 H BUN 17 Creatinine 1.1 Est GFR ( Amer) > 60 Est GFR (Non-Af Amer) > 60 Random Glucose 103 Calcium 8.0 L Total Bilirubin 1.7 H AST 131 H ALT 64 Alkaline Phosphatase 317 H D Total Protein 7.4 Albumin 3.1 L Globulin 4.3 H Albumin/Globulin Ratio 0.7 L Lipase Urine Color Urine Clarity Urine pH Ur Specific [place] Urine Protein Urine Glucose (UA) Urine Ketones Urine Blood Urine Nitrate Urine Bilirubin Urine Urobilinogen Ur Leukocyte Esterase Urine RBC (Auto) Urine Microscopic WBC Urine Bacteria Stool Occult Blood Alcohol, Quantitative 181 H Blood Type Antibody Screen BBK History Checked 10/25/17 10/25/17 10/25/17 01:20 01:20 07:00 WBC 3.8 L RBC 2.81 L Hgb 8.1 L Hct 24.7 L MCV 87.7 MCH 28.7 MCHC 32.7 L RDW 20.8 H Plt Count 66 L PT INR APTT Sodium Potassium Chloride Carbon Dioxide Anion Gap BUN Creatinine Est GFR ( Amer) Est GFR (Non-Af Amer) Random Glucose Calcium Total Bilirubin AST ALT Alkaline Phosphatase Total Protein Albumin Globulin Albumin/Globulin Ratio Lipase Urine Color Yellow Urine Clarity Slighty-cloudy Urine pH 6.0 Ur Specific [place] 1.024 Urine Protein Negative Urine Glucose (UA) Neg Urine Ketones Negative Urine Blood Negative Urine Nitrate Negative Urine Bilirubin Negative Urine Urobilinogen 4.0 Ur Leukocyte Esterase Neg Urine RBC (Auto) 4 H Urine Microscopic WBC 1 Urine Bacteria Rare Stool Occult Blood Negative Alcohol, Quantitative Blood Type O POSITIVE Antibody Screen Negative BBK History Checked Patient has bt 10/25/17 07:37 WBC RBC Hgb Hct MCV MCH MCHC RDW Plt Count PT INR APTT Sodium Potassium Chloride Carbon Dioxide Anion Gap BUN Creatinine Est GFR ( Amer) Est GFR (Non-Af Amer) Random Glucose Calcium Total Bilirubin AST ALT Alkaline Phosphatase Total Protein Albumin Globulin Albumin/Globulin Ratio Lipase 540 H Urine Color Urine Clarity Urine pH Ur Specific [place] Urine Protein Urine Glucose (UA) Urine Ketones Urine Blood Urine Nitrate Urine Bilirubin Urine Urobilinogen Ur Leukocyte Esterase Urine RBC (Auto) Urine Microscopic WBC Urine Bacteria Stool Occult Blood Alcohol, Quantitative Blood Type Antibody Screen BBK History Checked Assessment & Plan - Assessment and Plan (Free Text) Assessment: Patient is a 52yo male with PMHx significant for decompensated EtOH cirrhosis s/ p TIPS (2014), severe esophagitis and recently noted esophageal ulcer (September), EtOH withdrawal seizures who presented to the ED with complaint of hematemesis and hematochezia -Decompensated EtOH cirrhosis s/p TIPS -EtOH abuse/intoxication -Large internal/external hemorrhoids -Anemia/thrombocytopenia as a result of ongoing EtOH use and cirrhosis -Homelessness Plan: -EtOH cessation -EtOH withdrawal care -Protonix 40mg PO QAMAC -Anusol-HC to be applied externally -Advance diet as tolerated -Consider secondary gain given multiple, daily ED visits and homelessness - no overt signs of GI blood loss - Date & Time Date: 10/25/17 Time: 09:10 <Gage Bradley - Last Filed: 10/25/17 11:46> Meds - Medications Medications: Current Medications Folic Acid (Folic Acid) 1 mg PO DAILY [facility] Last Admin: 10/25/17 09:13 Dose: 1 mg Hydrocortisone (Cortizone 2.5% Cream) 1 applic TOP BID [facility] Stop: 11/08/17 09:01 Multivitamins/Vitamin C 10 ml/Folic Acid 1 mg/ Thiamine HCl 100 mg/ Dextrose/ Sodium Chloride 1,011.2 mls @ 125 mls/hr IV .Q8H6M ONE Stop: 10/25/17 13:03 Last Admin: 10/25/17 06:49 Dose: 125 mls/hr Pantoprazole Sodium 40 mg/ (Sodium Chloride) 100 mls @ 20 mls/hr IVPB Q5H [facility] PRN Reason: 8 MG/HR Last Admin: 10/25/17 11:15 Dose: 20 mls/hr Levetiracetam 500 mg/ Sodium (Chloride) 105 mls @ 210 mls/hr IVPB Q12 JANNIE Lorazepam (Ativan) 1 mg IVP Q4H PRN PRN Reason: Symptoms of alcohol withdrawl Results - Vital Signs Recent Vital Signs: Last Vital Signs Temp 98.6 F 10/25/17 09:00 Pulse 95 H 10/25/17 09:00 Resp 20 10/25/17 09:00 BP 119/56 L 10/25/17 09:00 Pulse Ox 100 10/25/17 09:00 - Labs Result Diagrams: 10/25/17 07:00 10/25/17 01:20 Labs: Laboratory Results - last 24 hr 10/25/17 10/25/17 10/25/17 00:20 01:20 01:20 WBC 6.7 RBC 2.91 L Hgb 8.4 L Hct 25.6 L MCV 87.8 MCH 28.9 MCHC 32.9 L RDW 21.0 H Plt Count 74 L PT 16.3 H INR 1.5 H APTT 37.3 H Sodium 145 Potassium 3.9 Chloride 109 H Carbon Dioxide 19 L Anion Gap 21 H BUN 17 Creatinine 1.1 Est GFR ( Amer) > 60 Est GFR (Non-Af Amer) > 60 Random Glucose 103 Calcium 8.0 L Total Bilirubin 1.7 H AST 131 H ALT 64 Alkaline Phosphatase 317 H D Total Protein 7.4 Albumin 3.1 L Globulin 4.3 H Albumin/Globulin Ratio 0.7 L Lipase Urine Color Urine Clarity Urine pH Ur Specific [place] Urine Protein Urine Glucose (UA) Urine Ketones Urine Blood Urine Nitrate Urine Bilirubin Urine Urobilinogen Ur Leukocyte Esterase Urine RBC (Auto) Urine Microscopic WBC Urine Bacteria Stool Occult Blood Alcohol, Quantitative 181 H Blood Type Antibody Screen BBK History Checked 10/25/17 10/25/17 10/25/17 01:20 01:20 07:00 WBC 3.8 L RBC 2.81 L Hgb 8.1 L Hct 24.7 L MCV 87.7 MCH 28.7 MCHC 32.7 L RDW 20.8 H Plt Count 66 L PT INR APTT Sodium Potassium Chloride Carbon Dioxide Anion Gap BUN Creatinine Est GFR ( Amer) Est GFR (Non-Af Amer) Random Glucose Calcium Total Bilirubin AST ALT Alkaline Phosphatase Total Protein Albumin Globulin Albumin/Globulin Ratio Lipase Urine Color Yellow Urine Clarity Slighty-cloudy Urine pH 6.0 Ur Specific [place] 1.024 Urine Protein Negative Urine Glucose (UA) Neg Urine Ketones Negative Urine Blood Negative Urine Nitrate Negative Urine Bilirubin Negative Urine Urobilinogen 4.0 Ur Leukocyte Esterase Neg Urine RBC (Auto) 4 H Urine Microscopic WBC 1 Urine Bacteria Rare Stool Occult Blood Negative Alcohol, Quantitative Blood Type O POSITIVE Antibody Screen Negative BBK History Checked Patient has bt 10/25/17 07:37 WBC RBC Hgb Hct MCV MCH MCHC RDW Plt Count PT INR APTT Sodium Potassium Chloride Carbon Dioxide Anion Gap BUN Creatinine Est GFR ( Amer) Est GFR (Non-Af Amer) Random Glucose Calcium Total Bilirubin AST ALT Alkaline Phosphatase Total Protein Albumin Globulin Albumin/Globulin Ratio Lipase 540 H Urine Color Urine Clarity Urine pH Ur Specific [place] Urine Protein Urine Glucose (UA) Urine Ketones Urine Blood Urine Nitrate Urine Bilirubin Urine Urobilinogen Ur Leukocyte Esterase Urine RBC (Auto) Urine Microscopic WBC Urine Bacteria Stool Occult Blood Alcohol, Quantitative Blood Type Antibody Screen BBK History Checked Attending/Attestation - Attestation I have personally seen and examined this patient.: Yes I have fully participated in the care of the patient.: Yes I have reviewed all pertinent clinical information: Yes Notes (Text): 10/25/17 11:44 I have seen and examined patient with GI fellow. No acute events overnight, he is seen resting in bed comfortably. He is still sleepy and intoxicated. He denies abdominal pain, nausea, vomiting, fever/chills. Tolerating PO diet without difficulty. Review of vitals from today are normal. In a nutshell this is a 52 yr old alcoholic cirrhosis s/p TIPS s/p EGD 10/15/17 showing esophageal ulcer, retained food content with H pylori negative. H/H stable, continue to monitor. Continue with PPI therapy. ETOH cessation counseling. No further planned GI interventions, will sign off case. Please reconsult as necessary, thank you. [facility]
[2017-10-25 12:21] VITALS: BP 124/66; PULSE 86
--- NOTE | 2017-10-25 15:04 | CP.PCM.DIS ---
Provider - Provider Date of Admission: 10/25/17 03:23 Attending physician: Chanelle Rowe MD Consults: GI: Dr. Bradley Time Spent in preparation of Discharge (in minutes): 30 Diagnosis - Discharge Diagnosis (1) Acute gastrointestinal bleeding Status: Resolved (2) Alcohol related seizure Status: Chronic (3) Cirrhosis Status: Chronic (4) Hemorrhoids Status: Chronic Hospital Course - Lab Results Lab Results: Most Recent Lab Values WBC 3.8 K/uL (4.8-10.8) L 10/25/17 07:00 RBC 2.81 Mil/uL (4.40-5.90) L 10/25/17 07:00 Hgb 8.1 g/dL (12.0-18.0) L 10/25/17 07:00 Hct 24.7 % (35.0-51.0) L 10/25/17 07:00 MCV 87.7 fl (80.0-94.0) 10/25/17 07:00 MCH 28.7 pg (27.0-31.0) 10/25/17 07:00 MCHC 32.7 g/dL (33.0-37.0) L 10/25/17 07:00 RDW 20.8 % (11.5-14.5) H 10/25/17 07:00 Plt Count 66 K/uL (130-400) L 10/25/17 07:00 PT 16.3 Seconds (9.8-13.1) H 10/25/17 01:20 INR 1.5 (0.9-1.2) H 10/25/17 01:20 APTT 37.3 Seconds (25.6-37.1) H 10/25/17 01:20 Sodium 145 mmol/l (132-148) 10/25/17 01:20 Potassium 3.9 MMOL/L (3.6-5.0) 10/25/17 01:20 Chloride 109 mmol/L (98-107) H 10/25/17 01:20 Carbon Dioxide 19 mmol/L (22-30) L 10/25/17 01:20 Anion Gap 21 (10-20) H 10/25/17 01:20 BUN 17 mg/dl (9-20) 10/25/17 01:20 Creatinine 1.1 mg/dl (0.8-1.5) 10/25/17 01:20 Est GFR ( Amer) > 60 10/25/17 01:20 Est GFR (Non-Af Amer) > 60 10/25/17 01:20 Random Glucose 103 mg/dL (75-110) 10/25/17 01:20 Calcium 8.0 mg/dL (8.4-10.2) L 10/25/17 01:20 Total Bilirubin 1.7 mg/dl (0.2-1.3) H 10/25/17 01:20 AST 131 U/L (17-59) H 10/25/17 01:20 ALT 64 U/L (21-72) 10/25/17 01:20 Alkaline Phosphatase 317 U/L (38-126) H D 10/25/17 01:20 Total Protein 7.4 G/DL (6.3-8.2) 10/25/17 01:20 Albumin 3.1 g/dL (3.5-5.0) L 10/25/17 01:20 Globulin 4.3 gm/dL (2.2-3.9) H 10/25/17 01:20 Albumin/Globulin Ratio 0.7 (1.0-2.1) L 10/25/17 01:20 Lipase 540 U/L (23-300) H 10/25/17 07:37 Urine Color Yellow (YELLOW) 10/25/17 01:20 Urine Clarity Slighty-cloudy (Clear) 10/25/17 01:20 Urine pH 6.0 (5.0-8.0) 10/25/17 01:20 Ur Specific [place] 1.024 (1.003-1.030) 10/25/17 01:20 Urine Protein Negative mg/dL (NEGATIVE) 10/25/17 01:20 Urine Glucose (UA) Neg mg/dL (Normal) 10/25/17 01:20 Urine Ketones Negative mg/dL (NEGATIVE) 10/25/17 01:20 Urine Blood Negative (NEGATIVE) 10/25/17 01:20 Urine Nitrate Negative (NEGATIVE) 10/25/17 01:20 Urine Bilirubin Negative (NEGATIVE) 10/25/17 01:20 Urine Urobilinogen 4.0 mg/dL (0.2-1.0) 10/25/17 01:20 Ur Leukocyte Esterase Neg [place]/uL (Negative) 10/25/17 01:20 Urine RBC (Auto) 4 /hpf (0-3) H 10/25/17 01:20 Urine Microscopic WBC 1 /hpf (0-5) 10/25/17 01:20 Urine Bacteria Rare (<OCC) 10/25/17 01:20 Stool Occult Blood Negative (NEGATIVE) 10/25/17 01:20 Alcohol, Quantitative 181 mg/dl (0-10) H 10/25/17 01:20 Blood Type O POSITIVE 10/25/17 01:20 Antibody Screen Negative 10/25/17 01:20 BBK History Checked Patient has bt 10/25/17 01:20 - Hospital Course Hospital Course: 52 year old M w/ PMH of seizures, Hepatic encephalopathy, Alcoholic liver Cirrhosis with TIPS procedure presented to the ED last night with 3 episodes of bloody bright red vomits along with 3 episodes of bloody stools. Pt was admitted for suspected GI bleeding. CBC shows H&H 8.1/24.[address] abdomen and pelvis shows no intraluminal hemorrhage. Dr. Bradley was consulted, recommended to have pantoprazole 40 mg daily and f/u outpatient. Today, pt reports no diarrhea or vomiting since the admission. Denies any abdominal pain, nausea, vomiting, headache , dizziness, chest pain, dyspnea, fever or chills. Pt was hungry and wanted to eat. Pt was given PO food and tolerated without nausea/vomiting. Pt is medically stable to discharge home and f/u GI outpatient was recommended. Home meds: Omeprazole 40 mg QAMAC Keppra 500 mg po bid Anusol-HC 2.5%, 1 application BID folic acid 1 mg po daily Discharge Exam - Head Exam Head Exam: ATRAUMATIC, NORMAL INSPECTION, NORMOCEPHALIC - ENT Exam ENT Exam: Mucous Membranes Moist - Neck Exam Neck exam: Normal Inspection - Respiratory Exam Respiratory Exam: Clear to PA & Lateral, NORMAL BREATHING PATTERN. absent: Rales, Rhonchi, Wheezes - Cardiovascular Exam Cardiovascular Exam: REGULAR RHYTHM, RRR, +S1, +S2 - GI/Abdominal Exam GI & Abdominal Exam: Normal Bowel Sounds, Soft. absent: Distended, Rebound, Rigid, Tenderness - Extremities Exam Extremities exam: normal inspection - Neurological Exam Neurological exam: Alert, Oriented x3 - Psychiatric Exam Psychiatric exam: Normal Affect, Normal Mood Discharge Plan - Discharge Medications Prescriptions: Folic Acid 1 mg PO DAILY #30 tab Hydrocortisone [Cortizone 2.5% CREAM] 1 applic TOP BID 14 Days #1 tube Omeprazole 40 mg PO QAM 30 Days #30 capsule. - Follow Up Plan Condition: STABLE Disposition: HOME/ ROUTINE Instructions: Gastrointestinal Bleeding (DC), Anemia of Chronic Disease (DC) Additional Instructions: Please follow up with Dr. Bradley in 1-2 weeks Please follow up with your PMD in 2-3 days. Referrals: [facility] [Provider Group] Gage Bradley MD [Medical Doctor] -
== END 2017-10-25 15:30 | disposition home or self-care (01) ==
LOC: H.ER 23:51 → INTOOBSV 10-25 03:23 → H.ERHOLD 10-25 03:23 → H.TEL 10-25 05:18
PROVIDERS: ADMIT Family Medicine Geriatric Medicine; ATTEND Family Medicine Geriatric Medicine
DX: K92.0 Hematemesis (principal); K70.30 Alcoholic cirrhosis of liver without ascites; K72.90 Hepatic failure, unspecified without coma; K76.6 Portal hypertension; G40.509 Epileptic seizures related to external causes, not intractable, without status epilepticus; D50.0 Iron deficiency anemia secondary to blood loss (chronic); F10.229 Alcohol dependence with intoxication, unspecified; F10.239 Alcohol dependence with withdrawal, unspecified; Y90.6 Blood alcohol level of 120-199 mg/100 ml; K22.10 Ulcer of esophagus without bleeding; D73.1 Hypersplenism; D69.59 Other secondary thrombocytopenia; K31.89 Other diseases of stomach and duodenum; K64.4 Residual hemorrhoidal skin tags; K64.8 Other hemorrhoids; F17.210 Nicotine dependence, cigarettes, uncomplicated; Z79.899 Other long term (current) drug therapy; Z59.0 Homelessness; G89.29 Other chronic pain; M25.512 Pain in left shoulder; K29.70 Gastritis, unspecified, without bleeding; Z88.6 Allergy status to analgesic agent; Z88.8 Allergy status to other drugs, medicaments and biological substances
CPT/HCPCS: 70450; 71045; 74176; 80053; 80320; 81003; 83690; 85027; 85610; 85730; 86850; 86900; 96365; 96366; 96374; 96375; 96376; 99285; C9113; G0328; G0378; J3411; J7042

== ENCOUNTER 2017-10-25 17:19 | Emergency (ER) | payer MEDICAID ==
[2017-10-25 17:47] VITALS: TEMP 97.8
--- NOTE | 2017-10-25 19:32 | ED PDOC ---
HPI: Abdomen Time Seen by Provider: 10/25/17 19:29 Chief Complaint (Nursing): GI Problem Chief Complaint (Provider): vomiting and abdominal pain History Per: Patient History/Exam Limitations: no limitations Additional Complaint(s): 52yo male with h/o GI bleed, alcoholism, pancreatitis and malingering. Pt reports that he had episodes of bloody vomit and bloody stools today. Associated abdominal pain. Good appetite otherwise. Past Medical History Reviewed: Historical Data, Nursing Documentation, Vital Signs Vital Signs: Last Vital Signs Temp 97.8 F 10/25/17 17:45 Pulse 100 H 10/25/17 19:36 Resp 16 10/25/17 19:36 BP 114/64 10/25/17 19:36 Pulse Ox 95 10/28/17 11:22 - Medical History PMH: Anemia, Back Problems (herniated disc), Deep Vein Thrombosis, Fractures ( rib fx, left shoulder, Left hand 5th digit, Humerus fracture), Gastritis, Seizures, Chronic Pain (left shoulder) Denies: Chronic Kidney Disease - Surgical History Surgical History: Endoscopy - Family History Family History: States: Unknown Family Hx - Immunization History Hx Tetanus Toxoid Vaccination: Yes - Home Medications Home Medications: Ambulatory Orders Medication Instructions Recorded levETIRAcetam [Keppra] 500 mg PO Q12H 10/25/17 Miconazole CR [Miconazole 2% CREAM] 1 ea TP BID #1 tube 10/28/17 - Allergies Allergies/Adverse Reactions: Allergies Allergy/AdvReac Type Severity Reaction Status Date / Time aspirin Allergy NAUSEA Verified 10/28/17 09:18 ibuprofen [From Motrin] Allergy NAUSEA Verified 10/28/17 09:18 naproxen Allergy RASH Verified 10/28/17 09:18 NSAIDS (Non-Steroidal Allergy NAUSEA Verified 10/28/17 09:18 Anti-Inflamma Physical Exam - Reviewed Nursing Documentation Reviewed: Yes Vital Signs Reviewed: Yes - Physical Exam Appears: Positive for: Well, No Acute Distress (eating doritos in ER) Head Exam: Positive for: ATRAUMATIC, NORMOCEPHALIC Skin: Positive for: Warm, Dry Eye Exam: Positive for: EOMI, PERRL ENT: Positive for: Other (alcohol on breath) Gastrointestinal/Abdominal: Positive for: Soft. Negative for: Tenderness, Mass , Distended, Guarding, Rebound Extremity: Positive for: Normal ROM. Negative for: Deformity Neurologic/Psych: Positive for: Alert, Gait (steady). Negative for: Motor/ Sensory Deficits, Other (slurred speech) - Laboratory Results Result Diagrams: 10/25/17 19:57 10/25/17 19:57 - ECG O2 Sat by Pulse Oximetry: 95 - Progress ED Course And Treament: Labs demonstrate elevated BAL and stable hgb. Disposition - Clinical Impression Clinical Impression: Alcohol abuse - Disposition Referrals: [facility] [Outside] Disposition: Routine/Home Disposition Time: 20:26 Condition: GOOD Additional Instructions: YOU HAVE A MAJOR PROBLEM WITH ALCOHOL. YOU NEED TO STOP DRINKING OR YOU WILL . Instructions: Alcohol Abuse and Alcoholism (DC)
[2017-10-25 19:37] VITALS: BP 114/64; PULSE 100; RESP 16
[2017-10-25] MEDS ORDERED: Thiamine 100 mg/ml Inj IM STA (19:40)
[2017-10-25] MEDS ORDERED: Sodium Chloride 0.9% 1,000 ML IV STA (19:40)
[2017-10-25 19:41] VITALS: O2SAT 95
[2017-10-25 20:05] LABS: BASO # 0.1 K/uL (0.0-0.2); BASO % 1.9 % (0.0-2.0); EOS # 0.2 K/uL (0.0-0.7); HEMOGLOBIN 8.4 g/dL (12.0-18.0); LYMPH # 0.9 K/uL (1.0-4.3); LYMPH % 20.1 % (20.0-40.0); MEAN CORPUSCULAR HEMOGLOBIN 28.8 pg (27.0-31.0); MEAN CORPUSCULAR HGB CONC 32.7 g/dL (33.0-37.0); MEAN PLATELET VOLUME 7.7 fl (7.2-11.7); MONO # 0.5 K/uL (0.0-0.8); MONO % 10.2 % (0.0-10.0); NEUT % 63.8 % (50.0-75.0); RBC 2.92 Mil/uL (4.40-5.90); RED CELL DISTRIBUTION WIDTH 20.8 % (11.5-14.5); WHITE BLOOD COUNT 4.7 K/uL (4.8-10.8)
[2017-10-25 20:22] LABS: ALB/GLOB RATIO 0.7 (1.0-2.1); ALBUMIN 2.9 g/dL (3.5-5.0); ALT/SGPT 63 U/L (21-72); AMYLASE 165 U/L (30-110); AST/SGOT 127 U/L (17-59); BLOOD UREA NITROGEN 11 mg/dl (9-20); GFR AFRICAN-AMERICAN > 60; GFR NON-AFRICAN AMERICAN > 60; LIPASE 521 U/L (23-300)
[2017-10-25 20:23] LABS: INR 1.6 (0.9-1.2); PARTIAL THROMBOPLASTIN TIME 49.4 Seconds (25.6-37.1); PROTHROMBIN TIME 17.5 Seconds (9.8-13.1)
== END 2017-10-25 20:51 | disposition home or self-care (01) ==
LOC: H.ER 17:19
DX: F10.129 Alcohol abuse with intoxication, unspecified (principal); R11.10 Vomiting, unspecified; R10.9 Unspecified abdominal pain
CPT/HCPCS: 80053; 80320; 82150; 83615; 83690; 85025; 85610; 85730; 86850; 86900; 96372; 99283; J3411; J7040

== ENCOUNTER 2017-10-25 22:13 | Emergency (ER) | payer MEDICAID ==
[2017-10-25 22:16] VITALS: BMI 25.3
[2017-10-25 22:20] VITALS: BP 122/74; PULSE 84; RESP 18; TEMP 98.7; O2SAT 100
--- NOTE | 2017-10-25 22:35 | ED PDOC ---
HPI: General Adult Time Seen by Provider: 10/25/17 22:28 Chief Complaint (Nursing): Medical Clearance Chief Complaint (Provider): vomiting Additional Complaint(s): Walked [place] by EMS from park [place] [address]. Pt just discharged from ER 30 minutes prior to arrival after having been seen for reports of bloody stool and vomit, and diagnosed with alcohol intoxication. He reports he vomited and has stomach pain. Denies drinking since discharge but was found with multiple bottles, empty and partially empty, of liquor. Past Medical History Reviewed: Historical Data, Nursing Documentation, Vital Signs Vital Signs: Last Vital Signs Temp 98.7 F 10/25/17 22:16 Pulse 84 10/25/17 22:16 Resp 18 10/25/17 22:16 BP 122/74 10/25/17 22:16 Pulse Ox 100 10/25/17 22:43 - Medical History PMH: Anemia, Back Problems (herniated disc), Deep Vein Thrombosis, Fractures ( rib fx, left shoulder, Left hand 5th digit, Humerus fracture), Gastritis, Seizures, Chronic Pain (left shoulder) Denies: Chronic Kidney Disease - Surgical History Surgical History: Endoscopy - Family History Family History: States: Unknown Family Hx - Social History Alcohol: > 2 Drinks/Day - Immunization History Hx Tetanus Toxoid Vaccination: Yes - Home Medications Home Medications: Ambulatory Orders Medication Instructions Recorded levETIRAcetam [Keppra] 500 mg PO Q12H 10/25/17 Miconazole CR [Miconazole 2% CREAM] 1 ea TP BID #1 tube 10/28/17 - Allergies Allergies/Adverse Reactions: Allergies Allergy/AdvReac Type Severity Reaction Status Date / Time aspirin Allergy NAUSEA Verified 10/28/17 09:18 ibuprofen [From Motrin] Allergy NAUSEA Verified 10/28/17 09:18 naproxen Allergy RASH Verified 10/28/17 09:18 NSAIDS (Non-Steroidal Allergy NAUSEA Verified 10/28/17 09:18 Anti-Inflamma Review of Systems ROS Statement: Except As Marked, All Systems Reviewed And Found Negative Gastrointestinal: Positive for: Vomiting Physical Exam - Reviewed Nursing Documentation Reviewed: Yes Vital Signs Reviewed: Yes - Physical Exam Appears: Positive for: No Acute Distress (sleeping in hospital bed comfortably) Head Exam: Positive for: ATRAUMATIC, NORMOCEPHALIC Eye Exam: Positive for: Conjunctival injection Gastrointestinal/Abdominal: Positive for: Soft. Negative for: Tenderness, Mass , Distended, Guarding, Hernia, Asicites Neurologic/Psych: Positive for: Alert, Gait (steady). Negative for: Motor/ Sensory Deficits - ECG O2 Sat by Pulse Oximetry: 100 Disposition - Clinical Impression Clinical Impression: Vomiting, Alcohol abuse - Disposition Referrals: Alcoholics Anonymous [Outside] [facility] [Outside] Disposition: Routine/Home Disposition Time: 22:34 Condition: STABLE Instructions: Nausea and Vomiting, Adult (DC), Alcohol Abuse and Alcoholism (DC )
== END 2017-10-25 23:04 | disposition home or self-care (01) ==
LOC: H.ER 22:13
DX: F10.129 Alcohol abuse with intoxication, unspecified (principal); R11.10 Vomiting, unspecified

== ENCOUNTER 2017-10-26 11:52 | Emergency (ER) | payer MEDICAID ==
[2017-10-26 11:53] VITALS: BMI 25.3
[2017-10-26 12:13] VITALS: BP 115/57; PULSE 98; RESP 20; TEMP 98.2; O2SAT 98
== END 2017-10-26 13:00 | disposition left against medical advice (07) ==
LOC: H.ER 11:52
DX: Z02.89 Encounter for other administrative examinations (principal)

== ENCOUNTER 2017-10-26 13:59 | Emergency (ER) | payer MEDICAID ==
[2017-10-26 13:59] VITALS: BMI 25.3
[2017-10-26 14:12] VITALS: BP 121/61; PULSE 97; RESP 18; TEMP 99.1; O2SAT 97
== END 2017-10-26 15:00 | disposition left against medical advice (07) ==
LOC: H.ER 13:59
DX: R51 Headache (principal)

== ENCOUNTER 2017-10-27 22:17 | Emergency (ER) | payer MEDICAID ==
[2017-10-27 22:17] VITALS: BMI 25.3
[2017-10-27 23:27] VITALS: BP 128/61; PULSE 107; RESP 18; TEMP 98.1; O2SAT 97
== END 2017-10-28 00:45 | disposition left against medical advice (07) ==
LOC: H.ER 22:17
DX: Z02.89 Encounter for other administrative examinations (principal)

== ENCOUNTER 2017-10-28 09:14 | Emergency (ER) | payer MEDICAID ==
[2017-10-28 09:14] VITALS: BMI 25.3
[2017-10-28 09:22] VITALS: O2SAT 98
[2017-10-28 09:23] VITALS: RESP 20
--- NOTE | 2017-10-28 09:27 | ED PDOC ---
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 Denies seizure today, hematemesis, fever or syncope. Seeing podiatry for care of prior foot cellulitis. Past Medical History Reviewed: Historical Data, Nursing Documentation, Vital Signs Vital Signs: Last Vital Signs Temp 97 F L 10/28/17 09:21 Pulse 105 H 10/28/17 09:21 Resp 20 10/28/17 09:20 BP 128/68 10/28/17 09:21 Pulse Ox 98 10/28/17 09:21 - Medical History PMH: Anemia, Back Problems (herniated disc), Deep Vein Thrombosis, Fractures ( rib fx, left shoulder, Left hand 5th digit, Humerus fracture), Gastritis, Seizures, Chronic Pain (left shoulder) Denies: Chronic Kidney Disease - Surgical History Surgical History: Endoscopy - Family History Family History: States: Unknown Family Hx - Living Arrangements Living Arrangements: Other - Social History Alcohol: > 2 Drinks/Day - Immunization History Hx Tetanus Toxoid Vaccination: Yes - Home Medications Home Medications: Ambulatory Orders Medication Instructions Recorded levETIRAcetam [Keppra] 500 mg PO Q12H 10/25/17 Miconazole CR [Miconazole 2% CREAM] 1 ea TP BID #1 tube 10/28/17 Famotidine [Pepcid] 20 mg PO BID 11/02/17 Omeprazole [Omeprazole] 40 mg PO DAILY 11/02/17 - Allergies Allergies/Adverse Reactions: Allergies Allergy/AdvReac Type Severity Reaction Status Date / Time aspirin Allergy NAUSEA Verified 10/29/17 00:38 ibuprofen [From Motrin] Allergy NAUSEA Verified 10/29/17 00:38 naproxen Allergy RASH Verified 10/29/17 00:38 NSAIDS (Non-Steroidal Allergy NAUSEA Verified 10/29/17 00:38 Anti-Inflamma Review of Systems Constitutional: Negative for: Fever Cardiovascular: Negative for: Chest Pain Gastrointestinal: Negative for: Abdominal Pain Musculoskeletal: Positive for: Foot Pain. Negative for: Neck Pain, Arm Pain Skin: Negative for: Rash, Lesions, Jaundice Neurological: Negative for: Headache, Dizziness Physical Exam - Physical Exam Appears: Positive for: Well, Non-toxic Head Exam: Positive for: ATRAUMATIC Skin: Positive for: Normal Color Eye Exam: Positive for: Normal appearance. Negative for: Periorbital swelling Extremity: Positive for: Other (L foot +callous distal plantar area, mild erythema chronic , mild edema ankle/foot chronic) - ECG O2 Sat by Pulse Oximetry: 98 Medical Decision Making Medical Decision Making: vitals stable pt ambulating at baseline Rx miconazole likely early fungal infection foot new socks offered followup podiatry clinic' Disposition - Clinical Impression Clinical Impression: Foot callus - Patient ED Disposition Is Patient to be Admitted: No Counseled Patient/Family Regarding: Studies Performed, Diagnosis - Disposition Referrals: Podiatry Clinic [Outside] Disposition: Routine/Home Disposition Time: 09:28 Condition: STABLE Additional Instructions: Followup with podiatry as directed. Prescriptions: Miconazole CR [Miconazole 2% CREAM] 1 ea TP BID #1 tube Instructions: Corns and Calluses Forms: [employer] (Khmer)
[2017-10-28 09:37] VITALS: BP 120/70; PULSE 74; TEMP 98
== END 2017-10-28 09:36 | disposition home or self-care (01) ==
LOC: H.ER 09:14
DX: L84 Corns and callosities (principal); G89.29 Other chronic pain; Z86.718 Personal history of other venous thrombosis and embolism; Z88.6 Allergy status to analgesic agent

== ENCOUNTER 2017-10-29 00:29 | Inpatient (IN) | payer MEDICAID ==
[2017-10-29 00:29] VITALS: BMI 25.3
[2017-10-29 01:30] LABS: BASO % 0.8 % (0.0-2.0); EOS # 0.2 K/uL (0.0-0.7); EOS % 5.1 % (0.0-4.0); LYMPH # 0.4 K/uL (1.0-4.3); LYMPH % 10.6 % (20.0-40.0); MEAN CELL VOLUME 87.8 fl (80.0-94.0); MEAN CORPUSCULAR HEMOGLOBIN 28.8 pg (27.0-31.0); MEAN CORPUSCULAR HGB CONC 32.7 g/dL (33.0-37.0); MEAN PLATELET VOLUME 7.8 fl (7.2-11.7); MONO # 0.2 K/uL (0.0-0.8); MONO % 5.9 % (0.0-10.0); NEUT # 3.2 K/uL (1.8-7.0); NEUT % 77.6 % (50.0-75.0); RBC 2.78 Mil/uL (4.40-5.90); RED CELL DISTRIBUTION WIDTH 21.4 % (11.5-14.5); WHITE BLOOD COUNT 4.1 K/uL (4.8-10.8)
[2017-10-29 01:42] LABS: BLOOD UREA NITROGEN 18 mg/dl (9-20); CALCIUM 8.1 mg/dL (8.4-10.2); GFR AFRICAN-AMERICAN > 60; GFR NON-AFRICAN AMERICAN > 60
--- NOTE | 2017-10-29 02:06 | ED PDOC ---
HPI: General Adult Time Seen by Provider: 10/29/17 00:44 Chief Complaint (Nursing): Seizure Chief Complaint (Provider): Seizure History Per: Patient History/Exam Limitations: no limitations Onset/Duration Of Symptoms: Mins ([employer]) Recently: Seen In ED Additional Complaint(s): 52 year old male presents to ED with complaints of seizures and is well known to this ED and provider for alcohol abuse. Patient states he had a seizure at the [facility] and presents for evaluation. PCP: None Past Medical History Reviewed: Historical Data, Nursing Documentation, Vital Signs Vital Signs: Last Vital Signs Temp 97.8 F 10/29/17 00:38 Pulse 100 H 10/29/17 00:38 Resp 16 10/29/17 00:38 BP 118/65 10/29/17 00:38 Pulse Ox 98 10/29/17 02:07 - Medical History PMH: Anemia, Back Problems (herniated disc), Deep Vein Thrombosis, Fractures ( rib fx, left shoulder, Left hand 5th digit, Humerus fracture), Gastritis, Seizures, Chronic Pain (left shoulder) Denies: Chronic Kidney Disease - Surgical History Surgical History: Endoscopy - Family History Family History: States: Unknown Family Hx - Living Arrangements Living Arrangements: Other (Undomiciled) - Social History Alcohol: > 2 Drinks/Day - Immunization History Hx Tetanus Toxoid Vaccination: Yes - Home Medications Home Medications: Ambulatory Orders Medication Instructions Recorded levETIRAcetam [Keppra] 500 mg PO Q12H 10/25/17 Miconazole CR [Miconazole 2% CREAM] 1 ea TP BID #1 tube 10/28/17 - Allergies Allergies/Adverse Reactions: Allergies Allergy/AdvReac Type Severity Reaction Status Date / Time aspirin Allergy NAUSEA Verified 10/29/17 00:38 ibuprofen [From Motrin] Allergy NAUSEA Verified 10/29/17 00:38 naproxen Allergy RASH Verified 10/29/17 00:38 NSAIDS (Non-Steroidal Allergy NAUSEA Verified 10/29/17 00:38 Anti-Inflamma Review of Systems ROS Statement: Except As Marked, All Systems Reviewed And Found Negative Neurological: Positive for: Seizures Physical Exam - Reviewed Nursing Documentation Reviewed: Yes Vital Signs Reviewed: Yes - Physical Exam Appears: Positive for: Non-toxic, No Acute Distress Head Exam: Positive for: ATRAUMATIC, NORMOCEPHALIC Skin: Positive for: Normal Color, Warm, Dry Eye Exam: Positive for: EOMI, Normal appearance, PERRL Cardiovascular/Chest: Positive for: Regular Rate, Rhythm. Negative for: Bradycardia Respiratory: Positive for: Normal Breath Sounds. Negative for: Respiratory Distress Gastrointestinal/Abdominal: Positive for: Normal Exam, Soft. Negative for: Tenderness Extremity: Positive for: Normal ROM Neurologic/Psych: Positive for: Alert, Oriented. Negative for: Motor/Sensory Deficits - Laboratory Results Result Diagrams: 10/29/17 01:20 10/29/17 01:20 - ECG O2 Sat by Pulse Oximetry: 98 (RA) Pulse Ox Interpretation: Normal Medical Decision Making Medical Decision Makin Initial impression: alcoholism and history of bed seeking behavior Initial plan: * EtOH serum * Labs * UDrug screen * UDip * Accucheck 0600 Nurse reports patient having witnessed seizure (generalized tonic-clonic) in ED that lasted 3 minutes. Subsequently patient entered post-ictal phase and has no recollection of event. Patient will be placed on OBS status. Spoke to Dr. Elliott (family practice resident) about admission to OBS TELE. Dx: recurrent seizures Scribe Attestation: Documented by Fallon Calderon acting as a scribe for Olaf Fernandez MD. Scribe Attestation: All medical record entries made by the Scribe were at my direction and personally dictated by me. I have reviewed the chart and agree that the record accurately reflects my personal performance of the history, physical exam, medical decision making, and the department course for this patient. I have also personally directed, reviewed, and agree with the discharge instructions and disposition. Disposition - Clinical Impression Clinical Impression: Seizure, Malingering - Patient ED Disposition Is Patient to be Admitted: Yes - Disposition Disposition Time: 05:49 Condition: FAIR Instructions: Seizures Forms: [employer] (Qatari) - Pt Status Changed To: Hospital Disposition Of: Observation (OBS TELE)
[2017-10-29 07:14] LABS: BARBITURATES, UR NEGATIVE (NEGATIVE); BENZODIAZEPINES, UR POSITIVE (NEGATIVE); OPIATES, UR NEGATIVE (NEGATIVE); PHENCYCLIDINE, UR NEGATIVE (NEGATIVE)
--- NOTE | 2017-10-29 08:18 | CP.PCM.HP ---
History of Present Illness - History of Present Illness History of Present Illness: Hx obtained from patient and review of medical record 52 year old M w/ PMH EtOH withdrawal seizures, decompensated EtOH cirrhosis s/ p TIPS (2014), severe esophagitis and recently noted esophageal ulcer (September) presented to the ED with with c/o having seizures in [facility] last night. Pt has another episode of generalized tonic seizures witnessed by ED RN. Pt was in post-ictal states for several minutes and had no recollection of the event (per ED note). Patient is a poor historian secondary to his intoxication. Pt states his friends witnessed the seizure and reported to have hit his head during seizure. Pt does not remember the event but does reports head hurts. Pt states he has been taking keppra 500 mg PO BID. Denies any tongue laceration, bladder or bowel incontinence. Denies any pain in other parts of the body. Denies abdominal pain, nausea, constipation, vomiting, melena , hematochezia or dark stool. ED COURSE: VS: BP 118/65, HR 100, RR 16, Temp 97.8 F, pulse ox 98% labs: BAL 166, UDX: + benzos CBC: 4.1>8.0/24.4<86 BMP: WNL PMD: [facility] ( last visit 09/27/17) PMHx: ETOH use disorder, EtOH withdrawal seziures disorder, liver cirrhosis and esophageal ucler. Meds: Keppra 500mg PO BID PsurgHx: TIPS in 2014 PHospHx: multiple ED visits for ETOH abuse, Hepatic Encephalopathy SocialHx: 2-3 cigarettes per day, ETOH and denies illicit drug use. Denies drinking alcohol last night (however alcohol level in ED was 166), FamilyHx: Father [place], mother breast cancer, siblings alive, sister recently diagnosed with colon cancer Next of kin: Sister Missy: [phone] Code Status: full code Present on Admission - Present on Admission Any Indicators Present on Admission: Yes Review of Systems - Constitutional Constitutional: Headache. absent: Chills, Fever - Cardiovascular Cardiovascular: absent: Chest Pain, Dyspnea - Respiratory Respiratory: absent: Cough, Dyspnea - Gastrointestinal Gastrointestinal: absent: Abdominal Pain, Constipation, Nausea, Vomiting - Genitourinary Genitourinary: absent: Dysuria, Hematuria - Integumentary Integumentary: absent: Rash - Neurological Neurological: Headaches. absent: Tremor - Hematologic/Lymphatic Hematologic: absent: Easy Bleeding, Easy Bruising Past Patient History - Infectious Disease Hx of Infectious Diseases: None - Tetanus Immunizations Tetanus Immunization: Unknown - Past Medical History & Family History Past Medical History?: Yes - Past Social History Alcohol: > 2 Drinks/Day - NEUROLOGICAL Hx Seizures: Yes - HEENT Hx HEENT Problems: No - RENAL Hx Chronic Kidney Disease: No - ENDOCRINE/METABOLIC Hx Endocrine Disorders: No - HEMATOLOGICAL/ONCOLOGICAL Hx Anemia: Yes - INTEGUMENTARY Hx Cellulitis: Yes - MUSCULOSKELETAL/RHEUMATOLOGICAL Hx Fractures: Yes (rib fx, left shoulder, Left hand 5th digit, Humerus fracture) - GASTROINTESTINAL Hx Gastritis: Yes - PSYCHIATRIC Hx Psychophysiologic Disorder: No Hx Substance Use: No - SURGICAL HISTORY Other/Comment: hepatic stent - ANESTHESIA Hx Anesthesia: Yes Hx Anesthesia Reactions: No Hx Malignant Hyperthermia: No Meds Allergies/Adverse Reactions: Allergies Allergy/AdvReac Type Severity Reaction Status Date / Time aspirin Allergy NAUSEA Verified 10/29/17 00:38 ibuprofen [From Motrin] Allergy NAUSEA Verified 10/29/17 00:38 naproxen Allergy RASH Verified 10/29/17 00:38 NSAIDS (Non-Steroidal Allergy NAUSEA Verified 10/29/17 00:38 Anti-Inflamma Physical Exam - Constitutional Appears: No Acute Distress Additional comments: Drowsy - Head Exam Head Exam: ATRAUMATIC, NORMAL INSPECTION, NORMOCEPHALIC Additional comments: No swelling or laceration/bruising seen - Eye Exam Eye Exam: EOMI, PERRL, Scleral icterus - ENT Exam ENT Exam: Mucous Membranes Dry - Neck Exam Neck exam: Positive for: Normal Inspection. Negative for: Lymphadenopathy, Meningismus - Respiratory Exam Respiratory Exam: Clear to Auscultation Bilateral, NORMAL BREATHING PATTERN. absent: Rales, Rhonchi, Wheezes, Respiratory Distress - Cardiovascular Exam Cardiovascular Exam: REGULAR RHYTHM, RRR, +S1, +S2 - GI/Abdominal Exam GI & Abdominal Exam: Normal Bowel Sounds, Soft. absent: Distended, Tenderness - Extremities Exam Extremities exam: Positive for: pedal pulses present. Negative for: pedal edema - Neurological Exam Neurological exam: Alert, Oriented x3 Additional comments: Drowsy but responds of questions - Psychiatric Exam Psychiatric exam: Normal Affect, Normal Mood Results - Vital Signs Recent Vital Signs: Last Vital Signs Temp 97.8 F 10/29/17 00:38 Pulse 114 H 10/29/17 06:44 Resp 19 10/29/17 06:44 BP 115/55 L 10/29/17 06:44 Pulse Ox 96 10/29/17 06:44 - Labs Result Diagrams: 10/29/17 01:20 10/29/17 01:20 Labs: Laboratory Results - last 24 hr 10/29/17 10/29/17 10/29/17 01:20 01:20 01:23 WBC 4.1 L RBC 2.78 L Hgb 8.0 L Hct 24.4 L MCV 87.8 MCH 28.8 MCHC 32.7 L RDW 21.4 H Plt Count 86 L MPV 7.8 Neut % (Auto) 77.6 H Lymph % (Auto) 10.6 L [place] % (Auto) 5.9 Eos % (Auto) 5.1 H Baso % (Auto) 0.8 Neut # (Auto) 3.2 Lymph # (Auto) 0.4 L [place] # (Auto) 0.2 Eos # (Auto) 0.2 Baso # (Auto) 0.0 Sodium 143 Potassium 3.8 Chloride 107 Carbon Dioxide 21 L Anion Gap 19 BUN 18 Creatinine 0.9 Est GFR ( Amer) > 60 Est GFR (Non-Af Amer) > 60 POC Glucose (mg/dL) 124 H Random Glucose 103 Calcium 8.1 L Urine Opiates Screen Urine Methadone Screen Ur Barbiturates Screen Ur Phencyclidine Scrn Ur Amphetamines Screen U Benzodiazepines Scrn U Oth Cocaine Metabols U Cannabinoids Screen Alcohol, Quantitative 166 H 10/29/17 10/29/17 05:51 06:15 WBC RBC Hgb Hct MCV MCH MCHC RDW Plt Count MPV Neut % (Auto) Lymph % (Auto) [place] % (Auto) Eos % (Auto) Baso % (Auto) Neut # (Auto) Lymph # (Auto) [place] # (Auto) Eos # (Auto) Baso # (Auto) Sodium Potassium Chloride Carbon Dioxide Anion Gap BUN Creatinine Est GFR ( Amer) Est GFR (Non-Af Amer) POC Glucose (mg/dL) 121 H Random Glucose Calcium Urine Opiates Screen Negative Urine Methadone Screen Negative Ur Barbiturates Screen Negative Ur Phencyclidine Scrn Negative Ur Amphetamines Screen Negative U Benzodiazepines Scrn Positive U Oth Cocaine Metabols Negative U Cannabinoids Screen Negative Alcohol, Quantitative Assessment & Plan - Assessment and Plan (Free Text) Assessment: 52 yo male pmxh seizures, ETOH use disorder, Hepatic encephalopathy, Alcohol Liver Cirrhosis with TIPs procedure admitted for recurrent seizures Plan Recurrent seizures -Admit to tele -C/w home medication: Keppra 500 mg po BID -Ativan 1 mg IVP Q6 PRN -Undomiciled and lives alone Hx EtOH use disorder -BAL:166 -alcohol withdrawal protocol -Ativan 1 mg IVP Q6 PRN Low grade fever and tachycardia -IVF'S -f/u urine cx and blood cx -monitor Acute on chronic anemia -chronic liver cirrhosis -H/H: 8.0/24.4 -f/u cbc DVT prophylaxis -SCDs
[2017-10-29] MEDS ORDERED: Multivitamin (MVI) 10 ML, Thiamine 100 MG, Folic Acid 1 MG in Sodium Chloride 0.9% 1,00... IV ONE ×4 (09:10→16:00)
--- NOTE | 2017-10-29 10:22 | CT ---
PROCEDURE: CT HEAD WITHOUT CONTRAST. HISTORY: Head strike during seizure COMPARISON: Comparison made with CT scan brain 10/25/2017 TECHNIQUE: Contiguous helical/ transaxial computed tomography images were obtained through the head/brain without intravenous contrast. Radiation dose: Total exam DLP = 910.65 MGy-cm. This CT exam was performed using one or more of the following dose reduction techniques: Automated exposure control, adjustment of the mA and/or kV according to patient size, and/or use of iterative reconstruction technique. . Note the examination is limited by motion artifact FINDINGS: HEMORRHAGE: No acute parenchymal, subarachnoid nor extra-axial hemorrhage. BRAIN: Moderate to significant diffuse/confluent chronic white matter ischemic changes seen extending peripherally into the deep and subcortical white matter both cerebral hemispheres. . . Moderate to significant volume loss VENTRICLES: No obstructive hydrocephalus. CALVARIUM: No acute calvarial fractures. Re- demonstrated are 2 tiny radiopaque densities in the left parietal scalp that could represent small calcifications however tiny opaque foreign body such as glass or gravel hallux PARANASAL SINUSES: Large in mucous retention cyst seen within the right maxillary antrum associate with minor mucosal thickening. Moderate lobulated mucosal thickening seen in the left maxillary antrum. Mild mucosal thickening seen within the ethmoid air complex. Minor mucosal thickening sphenoid sinus. MASTOID AIR CELLS: Unremarkable as visualized. No inflammatory changes. OTHER FINDINGS: None. IMPRESSION: Limited motion degraded study. No acute intracranial hemorrhage. Moderate to significant chronic white matter ischemic changes and volume loss as above.
[2017-10-29] MEDS: Sodium Chloride 0.9% 1,000 ML IV SCH (16:00)
--- NOTE | 2017-10-29 17:52 | CARD ---
APPROVED REPORT EKG Measurement Heart [id number] <Conclusion> Sinus tachycardia Possible Left atrial enlargement Cannot rule out Anterior infarct, age undetermined Abnormal ECG
[2017-10-29] MEDS: Lactulose 10 gm/15 ml Syrup PO SCH (18:55)
[2017-10-29 20:36] LABS: INR 1.6 (0.9-1.2); PARTIAL THROMBOPLASTIN TIME 32.3 Seconds (25.6-37.1); PROTHROMBIN TIME 18.2 Seconds (9.8-13.1)
[2017-10-29] MEDS ORDERED: Enoxaparin 40 mg Syringe SC SCH (22:00)
[2017-10-30] MEDS ORDERED: Sodium Chloride 0.9% 500 ML IV ONE (00:07)
[2017-10-30] MEDS: Clindamycin 600mg/50ml D5W 600 MG/50 ML VIAL IVPB SCH ×3 (00:46→18:24)
[2017-10-30] MEDS: Sodium Chloride 0.9% 1,000 ML IV SCH ×3 (01:46→18:25)
[2017-10-30 05:35] LABS: HEMOGLOBIN 7.5 g/dL (12.0-18.0); MEAN CELL VOLUME 86.8 fl (80.0-94.0); MEAN CORPUSCULAR HEMOGLOBIN 28.4 pg (27.0-31.0); MEAN CORPUSCULAR HGB CONC 32.7 g/dL (33.0-37.0); RBC 2.65 Mil/uL (4.40-5.90); RED CELL DISTRIBUTION WIDTH 21.4 % (11.5-14.5)
[2017-10-30 05:40] LABS: WHITE BLOOD COUNT 3.5 K/uL (4.8-10.8)
[2017-10-30 06:33] LABS: ALB/GLOB RATIO 0.6 (1.0-2.1); ALBUMIN 2.7 g/dL (3.5-5.0); ALT/SGPT 54 U/L (21-72); AST/SGOT 104 U/L (17-59); BLOOD UREA NITROGEN 19 mg/dl (9-20); CALCIUM 7.3 mg/dL (8.4-10.2); GFR AFRICAN-AMERICAN > 60; GFR NON-AFRICAN AMERICAN > 60
--- NOTE | 2017-10-30 06:36 | CP.PCM.PN ---
Subjective - Date & Time of Evaluation Date of Evaluation: 10/30/17 Time of Evaluation: 07:35 - Subjective Subjective: Patient seen and examined at bedside this morning. Overnight events reviewed, pt had fever of 102.1 F last night. This morning, pt reports he is feeling fine. Pt denies any cough, chest pain, dyspnea, dysuria, abdominal pain, nausea , vomiting or dizziness. Pt is tolerating PO. Pt reports he had normal BM this morning. Denies any blood in stool. Denies melena, hematochezia or black stool. Objective - Vital Signs/Intake and Output Vital Signs (last 24 hours): Temp Pulse Resp BP Pulse Ox 98.9 F 105 H 18 135/62 95 10/30/17 05:27 10/30/17 05:27 10/30/17 05:27 10/30/17 05:27 10/30/17 05:27 - Medications Medications: Current Medications Chlordiazepoxide (Librium) 25 mg PO Q8 PENDING SALE TO [facility] Last Admin: 10/30/17 00:54 Dose: 25 mg Enoxaparin Sodium (Lovenox) 40 mg SC HS PENDING SALE TO [facility] PRN Reason: Protocol Sodium Chloride (Sodium Chloride 0.9%) 1,000 mls @ 126 mls/hr IV .Q7H57M PENDING SALE TO [facility] Stop: 10/30/17 15:52 Last Admin: 10/30/17 01:46 Dose: 126 mls/hr Clindamycin Phosphate (Cleocin) 600 mg in 50 mls @ 50 mls/hr IVPB Q8 JANNIE PRN Reason: Protocol Last Admin: 10/30/17 00:46 Dose: 50 mls/hr Lactulose (Enulose) 30 gm PO TID PENDING SALE TO [facility] Last Admin: 10/29/17 18:55 Dose: 30 gm Levetiracetam (Keppra) 500 mg PO Q12H PENDING SALE TO [facility] Last Admin: 10/29/17 22:04 Dose: 500 mg Lorazepam (Ativan) 1 mg IVP Q6 PRN PRN Reason: Symptoms of alcohol withdrawl Last Admin: 10/29/17 12:02 Dose: 1 mg Saccharomyces Boulardii (Florastor) 250 mg PO BID PENDING SALE TO [facility] - Labs Labs: 10/30/17 05:01 10/30/17 05:01 PT 18.2 Seconds (9.8-13.1) H 10/29/17 20:00 INR 1.6 (0.9-1.2) H 10/29/17 20:00 APTT 32.3 Seconds (25.6-37.1) 10/29/17 20:00 - Constitutional Appears: Non-toxic, No Acute Distress - Head Exam Head Exam: ATRAUMATIC, NORMAL INSPECTION, NORMOCEPHALIC - Eye Exam Eye Exam: EOMI, Scleral icterus - ENT Exam ENT Exam: Mucous Membranes Moist - Neck Exam Neck Exam: Full ROM. absent: Meningismus - Respiratory Exam Respiratory Exam: Clear to Ausculation Bilateral. absent: Rales, Rhonchi, Wheezes, Respiratory Distress - Cardiovascular Exam Cardiovascular Exam: REGULAR RHYTHM, RRR, +S1, +S2 - GI/Abdominal Exam GI & Abdominal Exam: Distended (mildly), Soft, Normal Bowel Sounds. absent: Tenderness, Rebound - Extremities Exam Extremities Exam: absent: Calf Tenderness, Pedal Edema Additional comments: 1 cm healing wound at the base of left 1st toe on plantar aspects of left toe. No swelling, erythema or discharge seen. - Neurological Exam Neurological Exam: Alert, Awake, Oriented x3 (still drowsy, reponds to questions appropriately.) - Psychiatric Exam Psychiatric exam: Normal Affect, Normal Mood Assessment and Plan - Assessment and Plan (Free Text) Assessment: 52 yo male pmxh seizures, ETOH use disorder, Hepatic encephalopathy, alcohol Liver Cirrhosis with TIPs procedure admitted for alcohol withdrawal seizure, low grade fever and tachycardia. Plan Alcohol withdrawal syndrome: -Recurrent seizures in setting of alcohol use -C/w home medication: Keppra 500 mg po BID -Start Ativan 1 mg IVP Q8 -c/w ativan 1 mg IVP q6hr prn -Undomiciled and lives alone Hyperammonemia -possible hepatic encephalopathy -Ammonia level 126 -Continue with lactulose 30 gm po TID -F/U GI consult -f/u repeat ammonia level and pt's symptoms Fever and tachycardia -IVFs -f/u urine cx and blood cx -portable CXR neg, f/u repeat CXR -Clindamycin 600 mg IVPB Q8 Acute on chronic anemia -chronic liver cirrhosis -H/H: 7.5/23.0 today, likely secondary to hemodilution -Denies melena or hematochezia -f/u CBC DVT prophylaxis -SCDs for now -platelet: 52 Code status: Full code
[2017-10-30 08:07] LABS: SQUAMOUS EPITHIAL 3 /hpf (0-5); URINE BACTERIA OCC (<OCC); URINE BILIRUBIN NEGATIVE (NEGATIVE); URINE BLOOD NEGATIVE (NEGATIVE); URINE CLARITY SLIGHTY-CLOUDY (Clear); URINE COLOR YELLOW (YELLOW); URINE GLUCOSE (UA) NEG (Normal); URINE LEUKOCYTE ESTERASE SMALL Leu/uL (Negative); URINE PROTEIN NEGATIVE (NEGATIVE); URINE UROBILINOGEN 0.2-1.0 mg/dL (0.2-1.0)
[2017-10-30] MEDS: Lactulose 10 gm/15 ml Syrup PO SCH ×3 (09:33→18:25)
[2017-10-30] MEDS: Saccharomyces Boulardi 250 mg Cap PO SCH ×2 (09:34→18:25)
--- NOTE | 2017-10-30 09:38 | RAD ---
HISTORY: fever. R/O Aspiration Pneumonia COMPARISON: No prior. FINDINGS: LUNGS: No active pulmonary disease. PLEURA: No significant pleural effusion identified, no pneumothorax apparent. CARDIOVASCULAR: Normal. OSSEOUS STRUCTURES: No significant abnormalities. VISUALIZED UPPER ABDOMEN: Normal. OTHER FINDINGS: None. IMPRESSION: No active disease.
[2017-10-31] MEDS: Clindamycin 600mg/50ml D5W 600 MG/50 ML VIAL IVPB SCH ×2 (02:24→09:12)
[2017-10-31 06:47] LABS: BASO % 0.9 % (0.0-2.0); EOS # 0.1 K/uL (0.0-0.7); EOS % 4.2 % (0.0-4.0); HEMOGLOBIN 7.2 g/dL (12.0-18.0); LYMPH # 0.4 K/uL (1.0-4.3); LYMPH % 18.5 % (20.0-40.0); MEAN CELL VOLUME 87.9 fl (80.0-94.0); MEAN CORPUSCULAR HEMOGLOBIN 28.4 pg (27.0-31.0); MEAN CORPUSCULAR HGB CONC 32.3 g/dL (33.0-37.0); MEAN PLATELET VOLUME 7.2 fl (7.2-11.7); MONO # 0.4 K/uL (0.0-0.8); NEUT # 1.3 K/uL (1.8-7.0); NEUT % 59.4 % (50.0-75.0); RBC 2.53 Mil/uL (4.40-5.90); WHITE BLOOD COUNT 2.2 K/uL (4.8-10.8)
--- NOTE | 2017-10-31 07:47 | RAD ---
HISTORY: fever, seizure disorder, r/o aspiration PNA COMPARISON: No prior. TECHNIQUE: Chest PA and lateral FINDINGS: LUNGS: No active pulmonary disease. PLEURA: No significant pleural effusion identified. No pneumothorax apparent. CARDIOVASCULAR: Normal. OSSEOUS STRUCTURES: No significant abnormalities. VISUALIZED UPPER ABDOMEN: Normal. OTHER FINDINGS: None. IMPRESSION: No active disease.
[2017-10-31] MEDS: Saccharomyces Boulardi 250 mg Cap PO SCH ×2 (09:11→16:41)
[2017-10-31] MEDS: Lactulose 10 gm/15 ml Syrup PO SCH ×3 (09:12→16:41)
--- NOTE | 2017-10-31 16:40 | CP.PCM.PN ---
Subjective - Date & Time of Evaluation Date of Evaluation: 10/31/17 Time of Evaluation: 11:38 - Subjective Subjective: Patient seen and examined at bedside. No acute events overnight. No fevers. Patient drowsy. Just had ativan dose. Denies abdominal pain, n/v/d/c, chest pain , sob. Observed patient eating breakfast, states he doesnt like the eggs. Denies any blood in stool. Denies melena, hematochezia or black stool. Objective - Vital Signs/Intake and Output Vital Signs (last 24 hours): Temp Pulse Resp BP Pulse Ox 98.5 F 102 H 18 125/65 99 10/31/17 13:08 10/31/17 13:08 10/31/17 13:08 10/31/17 13:08 10/31/17 13:08 - Medications Medications: Current Medications Enoxaparin Sodium (Lovenox) 40 mg SC HS [facility] PRN Reason: Protocol Lactulose (Enulose) 30 gm PO TID [facility] Last Admin: 10/31/17 13:20 Dose: 30 gm Levetiracetam (Keppra) 500 mg PO Q12H [facility] Last Admin: 10/31/17 09:11 Dose: 500 mg Lorazepam (Ativan) 1 mg IVP Q6 PRN PRN Reason: Symptoms of alcohol withdrawl Last Admin: 10/30/17 23:33 Dose: 1 mg Lorazepam (Ativan) 0.5 mg PO Q8 [facility] Saccharomyces Boulardii (Florastor) 250 mg PO BID [facility] Last Admin: 10/31/17 09:11 Dose: 250 mg - Labs Labs: 10/31/17 06:01 10/30/17 05:01 PT 18.2 Seconds (9.8-13.1) H 10/29/17 20:00 INR 1.6 (0.9-1.2) H 10/29/17 20:00 APTT 32.3 Seconds (25.6-37.1) 10/29/17 20:00 - Constitutional Appears: Non-toxic, No Acute Distress, Other (drowsy) - Head Exam Head Exam: NORMAL INSPECTION - Respiratory Exam Respiratory Exam: Clear to Ausculation Bilateral, NORMAL BREATHING PATTERN - Cardiovascular Exam Cardiovascular Exam: REGULAR RHYTHM, +S1, +S2. absent: Murmur - GI/Abdominal Exam GI & Abdominal Exam: Soft, Normal Bowel Sounds. absent: Tenderness - Extremities Exam Extremities Exam: Normal Inspection - Neurological Exam Neurological Exam: Awake - Psychiatric Exam Psychiatric exam: Normal Affect, Normal Mood - Skin Skin Exam: Dry, Intact, Normal Color, Warm Assessment and Plan - Assessment and Plan (Free Text) Assessment: 52 yo male pmxh seizures, ETOH use disorder, Hepatic encephalopathy, alcohol Liver Cirrhosis with TIPs procedure admitted for alcohol withdrawal seizure. Plan Alcohol withdrawal syndrome: -Recurrent seizures in setting of alcohol use -C/w home medication: Keppra 500 mg po BID -Will decrease Ativan to 0.5mg mg IVP Q8 -c/w ativan 1 mg IVP q6hr prn -Undomiciled and lives alone -Interested in detox program at [facility] Hyperammonemia -possible hepatic encephalopathy -Ammonia level 126 -Continue with lactulose 30 gm po TID -F/U GI consult -f/u repeat ammonia level and pt's symptoms Fever and tachycardia -Improved -CXR unremarkable -d/c clindamycin, likely due to seizure related response -IVFs -f/u urine cx and blood cx -continue to monitor Acute on chronic anemia -chronic liver cirrhosis -H/H: 7.2/22.2 today, likely secondary to hemodilution -Denies melena or hematochezia -Hgb trending down, closely monitor -f/u CBC DVT prophylaxis -SCDs for now -platelet: 47 Code status: Full code
[2017-11-01 06:36] LABS: HEMOGLOBIN 6.9 g/dL (12.0-18.0); MEAN CELL VOLUME 87.3 fl (80.0-94.0); MEAN CORPUSCULAR HEMOGLOBIN 28.1 pg (27.0-31.0); MEAN CORPUSCULAR HGB CONC 32.2 g/dL (33.0-37.0); RBC 2.46 Mil/uL (4.40-5.90); RED CELL DISTRIBUTION WIDTH 20.6 % (11.5-14.5); WHITE BLOOD COUNT 2.5 K/uL (4.8-10.8)
--- NOTE | 2017-11-01 07:04 | CP.PCM.PN ---
Subjective - Date & Time of Evaluation Date of Evaluation: 11/01/17 Time of Evaluation: 07:40 - Subjective Subjective: Patient seen and examined at bedside. No acute events overnight. Afebrile. Patient is still drowsy. Pt reports he had regular BM last night. Denies any dark stool. This morning, pt wants to leave the unit stating has to 'chart picker his check'. Pt was advised to stay as he is still unsteady and has risk of fall/ injury. Denies abdominal pain, n/v/d/c, chest pain, sob. Denies melena, hematochezia or black stool. Objective - Vital Signs/Intake and Output Vital Signs (last 24 hours): Temp Pulse Resp BP Pulse Ox 97.9 F 93 H 18 116/62 97 11/01/17 05:21 11/01/17 05:21 11/01/17 05:21 11/01/17 05:21 11/01/17 05:21 - Medications Medications: Current Medications Enoxaparin Sodium (Lovenox) 40 mg SC HS [facility] PRN Reason: Protocol Lactulose (Enulose) 30 gm PO TID [facility] Last Admin: 10/31/17 16:41 Dose: 30 gm Levetiracetam (Keppra) 500 mg PO Q12H [facility] Last Admin: 10/31/17 23:09 Dose: 500 mg Lorazepam (Ativan) 1 mg IVP Q6 PRN PRN Reason: Symptoms of alcohol withdrawl Last Admin: 11/01/17 03:47 Dose: 1 mg Saccharomyces Boulardii (Florastor) 250 mg PO BID [facility] Last Admin: 10/31/17 16:41 Dose: 250 mg - Labs Labs: 11/01/17 06:24 10/30/17 05:01 PT 18.2 Seconds (9.8-13.1) H 10/29/17 20:00 INR 1.6 (0.9-1.2) H 10/29/17 20:00 APTT 32.3 Seconds (25.6-37.1) 10/29/17 20:00 - Additional Findings Additional findings: - Constitutional Appears: Non-toxic, No Acute Distress, still drowsy - Head Exam Head Exam: NORMAL INSPECTION - Respiratory Exam Respiratory Exam: Clear to Ausculation Bilateral, NORMAL BREATHING PATTERN - Cardiovascular Exam Cardiovascular Exam: REGULAR RHYTHM, +S1, +S2. absent: Murmur - GI/Abdominal Exam GI & Abdominal Exam: Soft, Normal Bowel Sounds. absent: Tenderness - Extremities Exam Extremities Exam: Normal Inspection - Neurological Exam Neurological Exam: Awake, alert and oriented, unsteady gait - Psychiatric Exam Psychiatric exam: Normal Affect, Normal Mood - Skin Skin Exam: Dry, Intact, Normal Color, Warm Assessment and Plan - Assessment and Plan (Free Text) Assessment: 52 yo male pmxh seizures, ETOH use disorder, Hepatic encephalopathy, alcohol Liver Cirrhosis with TIPs procedure admitted for alcohol withdrawal seizure. Plan Alcohol withdrawal syndrome: -Recurrent seizures in setting of alcohol use -C/w home medication: Keppra 500 mg po BID -d/c ativan 0.5mg qhrs this morning -c/w ativan 1 mg IVP q6hr prn -Undomiciled and lives alone -Interested in detox program at [facility] [place] Hyperammonemia (resolved) -possible hepatic encephalopathy -Ammonia level 36 today, was 126 on 10/29/17, -Continue with lactulose 30 gm po TID -F/U GI consult Fever and tachycardia -Last fever (100.5 F) on 10/30/17 at 12:22 -CXR unremarkable -d/c clindamycin, likely due to seizure related response -Urine cx; <10,000 CFU/ml, multiple organisms, probable contamination. -Blood cx: no growth after 24 hrs -Continue to monitor Acute on chronic anemia -Chronic liver cirrhosis -H/H: 6.9/21.5 today w/ pancytopenia -will transfuse 2 units today (pt signed the consent) -Denies melena or hematochezia -f/u fecal occult test -f/u CBC DVT prophylaxis -SCDs for now -platelet: 54 Code status: Full code
[2017-11-01 07:36] LABS: ALB/GLOB RATIO 0.7 (1.0-2.1); ALBUMIN 2.6 g/dL (3.5-5.0); ALT/SGPT 47 U/L (21-72); AST/SGOT 95 U/L (17-59); BLOOD UREA NITROGEN 13 mg/dl (9-20); CALCIUM 7.5 mg/dL (8.4-10.2); GFR AFRICAN-AMERICAN > 60; GFR NON-AFRICAN AMERICAN > 60
[2017-11-01] MEDS ORDERED: Potassium Chloride 20 mEq ER Tab PO ONE (09:04)
[2017-11-01] MEDS: Lactulose 10 gm/15 ml Syrup PO SCH ×3 (09:15→17:42)
[2017-11-01] MEDS: Saccharomyces Boulardi 250 mg Cap PO SCH ×2 (09:15→17:42)
[2017-11-01] MEDS ORDERED: Multivitamin (MVI) 10 ML, Thiamine 100 MG, Folic Acid 1 MG in Sodium Chloride 0.9% 1,00... IV ONE (14:44)
[2017-11-02 00:24] VITALS: RESP 18
[2017-11-02 04:57] VITALS: BP 122/61; PULSE 90; TEMP 99.2; O2SAT 97
[2017-11-02 06:05] LABS: HEMOGLOBIN 8.8 g/dL (12.0-18.0); MEAN CELL VOLUME 86.9 fl (80.0-94.0); MEAN CORPUSCULAR HEMOGLOBIN 28.9 pg (27.0-31.0); MEAN CORPUSCULAR HGB CONC 33.2 g/dL (33.0-37.0); RBC 3.04 Mil/uL (4.40-5.90); RED CELL DISTRIBUTION WIDTH 19.1 % (11.5-14.5); WHITE BLOOD COUNT 2.6 K/uL (4.8-10.8)
[2017-11-02 06:22] LABS: BLOOD UREA NITROGEN 12 mg/dl (9-20); CALCIUM 7.4 mg/dL (8.4-10.2); GFR AFRICAN-AMERICAN > 60; GFR NON-AFRICAN AMERICAN > 60
--- NOTE | 2017-11-02 07:21 | CP.PCM.DIS ---
Provider - Provider Date of Admission: 10/31/17 15:55 Attending physician: Chanelle Rowe MD Time Spent in preparation of Discharge (in minutes): 30 Diagnosis - Discharge Diagnosis (1) Left against medical advice Status: Acute (2) Pancytopenia Status: Chronic (3) Alcohol related seizure Status: Chronic (4) Liver cirrhosis, alcoholic Status: Chronic Priority: High (5) Seizure Status: Chronic Hospital Course - Lab Results Lab Results: Micro Results 10/30/17 12:45 Blood-Venous Blood Culture - Preliminary NO GROWTH AFTER 48 HOURS 10/29/17 09:48 Blood-Venous Blood Culture - Preliminary NO GROWTH AFTER 3 DAYS 10/29/17 07:38 Urine Urine Culture - Final <10,000 CFU/ML. MULTIPLE SPECIES. PROBABLE CONTAMINATION. Most Recent Lab Values WBC 2.6 K/uL (4.8-10.8) L 11/02/17 05:30 RBC 3.04 Mil/uL (4.40-5.90) L 11/02/17 05:30 Hgb 8.8 g/dL (12.0-18.0) L 11/02/17 05:30 Hct 26.4 % (35.0-51.0) L 11/02/17 05:30 MCV 86.9 fl (80.0-94.0) 11/02/17 05:30 MCH 28.9 pg (27.0-31.0) 11/02/17 05:30 MCHC 33.2 g/dL (33.0-37.0) 11/02/17 05:30 RDW 19.1 % (11.5-14.5) H 11/02/17 05:30 Plt Count 61 K/uL (130-400) L 11/02/17 05:30 MPV 7.2 fl (7.2-11.7) 10/31/17 06:01 Neut % (Auto) 59.4 % (50.0-75.0) 10/31/17 06:01 Lymph % (Auto) 18.5 % (20.0-40.0) L 10/31/17 06:01 [place] % (Auto) 17.0 % (0.0-10.0) H 10/31/17 06:01 Eos % (Auto) 4.2 % (0.0-4.0) H 10/31/17 06:01 Baso % (Auto) 0.9 % (0.0-2.0) 10/31/17 06:01 Neut # (Auto) 1.3 K/uL (1.8-7.0) L 10/31/17 06:01 Lymph # (Auto) 0.4 K/uL (1.0-4.3) L 10/31/17 06:01 [place] # (Auto) 0.4 K/uL (0.0-0.8) 10/31/17 06:01 Eos # (Auto) 0.1 K/uL (0.0-0.7) 10/31/17 06:01 Baso # (Auto) 0.0 K/uL (0.0-0.2) 10/31/17 06:01 PT 18.2 Seconds (9.8-13.1) H 10/29/17 20:00 INR 1.6 (0.9-1.2) H 10/29/17 20:00 APTT 32.3 Seconds (25.6-37.1) 10/29/17 20:00 Sodium 138 mmol/l (132-148) 11/02/17 05:30 Potassium 3.7 MMOL/L (3.6-5.0) 11/02/17 05:30 Chloride 107 mmol/L (98-107) 11/02/17 05:30 Carbon Dioxide 19 mmol/L (22-30) L 11/02/17 05:30 Anion Gap 16 (10-20) 11/02/17 05:30 BUN 12 mg/dl (9-20) 11/02/17 05:30 Creatinine 0.6 mg/dl (0.8-1.5) L 11/02/17 05:30 Est GFR ( Amer) > 60 11/02/17 05:30 Est GFR (Non-Af Amer) > 60 11/02/17 05:30 POC Glucose (mg/dL) 121 mg/dL (65-110) H 10/29/17 05:51 Random Glucose 86 mg/dL (75-110) 11/02/17 05:30 Calcium 7.4 mg/dL (8.4-10.2) L 11/02/17 05:30 Total Bilirubin 2.5 mg/dl (0.2-1.3) H 11/01/17 06:24 AST 95 U/L (17-59) H 11/01/17 06:24 ALT 47 U/L (21-72) 11/01/17 06:24 Alkaline Phosphatase 124 U/L (38-126) 11/01/17 06:24 Ammonia 36 umo/L (16-60) D 11/01/17 09:23 Total Protein 6.2 G/DL (6.3-8.2) L 11/01/17 06:24 Albumin 2.6 g/dL (3.5-5.0) L 11/01/17 06:24 Globulin 3.6 gm/dL (2.2-3.9) 11/01/17 06:24 Albumin/Globulin Ratio 0.7 (1.0-2.1) L 11/01/17 06:24 Vitamin B12 > 1000 pg/mL (239-931) H 11/02/17 05:30 Urine Color Yellow (YELLOW) 10/29/17 07:38 Urine Clarity Slighty-cloudy (Clear) 10/29/17 07:38 Urine pH 6.0 (5.0-8.0) 10/29/17 07:38 Ur Specific [place] 1.013 (1.003-1.030) 10/29/17 07:38 Urine Protein Negative mg/dL (NEGATIVE) 10/29/17 07:38 Urine Glucose (UA) Neg mg/dL (Normal) 10/29/17 07:38 Urine Ketones Negative mg/dL (NEGATIVE) 10/29/17 07:38 Urine Blood Negative (NEGATIVE) 10/29/17 07:38 Urine Nitrate Negative (NEGATIVE) 10/29/17 07:38 Urine Bilirubin Negative (NEGATIVE) 10/29/17 07:38 Urine Urobilinogen 0.2-1.0 mg/dL (0.2-1.0) 10/29/17 07:38 Ur Leukocyte Esterase Small [place]/uL (Negative) 10/29/17 07:38 Urine RBC (Auto) 3 /hpf (0-3) 10/29/17 07:38 Urine Microscopic WBC 14 /hpf (0-5) H 10/29/17 07:38 Ur Squamous Epith Cells 3 /hpf (0-5) 10/29/17 07:38 Urine Bacteria Occ (<OCC) H 10/29/17 07:38 Urine Opiates Screen Negative (NEGATIVE) 10/29/17 06:15 Urine Methadone Screen Negative (NEGATIVE) 10/29/17 06:15 Ur Barbiturates Screen Negative (NEGATIVE) 10/29/17 06:15 Ur Phencyclidine Scrn Negative (NEGATIVE) 10/29/17 06:15 Ur Amphetamines Screen Negative (NEGATIVE) 10/29/17 06:15 U Benzodiazepines Scrn Positive (NEGATIVE) 10/29/17 06:15 U Oth Cocaine Metabols Negative (NEGATIVE) 10/29/17 06:15 U Cannabinoids Screen Negative (NEGATIVE) 10/29/17 06:15 Alcohol, Quantitative 166 mg/dl (0-10) H 10/29/17 01:20 Blood Type O POSITIVE 11/01/17 09:23 Antibody Screen Negative 11/01/17 09:23 Crossmatch See Detail 11/01/17 09:23 BBK History Checked Patient has bt 11/01/17 09:23 - Hospital Course Hospital Course: 52 year old M w/ PMH EtOH withdrawal seizures, decompensated EtOH cirrhosis s/ p TIPS (2014), severe esophagitis and recently noted esophageal ulcer (September) presented to the ED on 10/29/17 with with c/o having seizures in [facility] last night. Pt has another episode of generalized tonic seizures witnessed by ED RN. Pt was in post-ictal states for several minutes and had no recollection of the event. Pt was admitted for alcohol withdrawal seizures and altered mental status. While in admission, pt did not have any seizure episodes ( pt was on ativan scheduled and prn doses). Pt had ammonia level of 126 on 10/29/17, was put on lactulose 30 gm po tid, decreased to 36 on . Pt's H&H dropped to 6.9/21.5 on 11/01/17 was given 2 units PRBC yesterday. Now H&H today is 8.8/26.4. This morning, pt still has unsteady gait and has signifiant risk for fall/injury. Pt signed out AMA. Advised to f/u with PMD, Neurology and gastroenterology. Medications on AMA discharge: Continue Keppra 500 mg po bid (no new rx given) Discharge Exam - Head Exam Head Exam: NORMAL INSPECTION - Eye Exam Eye Exam: Scleral icterus - Respiratory Exam Respiratory Exam: Clear to PA & Lateral, NORMAL BREATHING PATTERN - Cardiovascular Exam Cardiovascular Exam: REGULAR RHYTHM, +S1, +S2 - Neurological Exam Neurological exam: Abnormal Gait (unsteady gait), Alert, Oriented x3 Discharge Plan - Follow Up Plan Condition: FAIR Disposition: AGAINST MEDICAL ADVICE Instructions: Seizures Additional Instructions: Please follow up with PMD in 1 week Follow up with neurology and gastroenterology [facility] detox unit: Referrals: [facility] [Provider Group] Gage Bradley MD [Medical Doctor] - Higinio Henry MD [Medical Doctor] -
[2017-11-02 13:31] LABS: FOLATE 18.2 ng/mL
== END 2017-11-02 07:44 | disposition left against medical advice (07) | DRG 532 ==
LOC: H.ER 00:29 → H.ERHOLD 05:49 → H.TEL 10:03 → OBSVTOIN 10-31 15:55 → H.TEL 11-01 08:13
PROVIDERS: ADMIT Family Medicine Geriatric Medicine; ATTEND Family Medicine Geriatric Medicine
PROC: 30233N1 Transfusion of Nonautologous Red Blood Cells into Peripheral Vein, Percutaneous Approach (ICD-10-PCS; principal; 2017-11-01)
DX: G40.509 Epileptic seizures related to external causes, not intractable, without status epilepticus (principal); K72.90 Hepatic failure, unspecified without coma; F10.239 Alcohol dependence with withdrawal, unspecified; K70.30 Alcoholic cirrhosis of liver without ascites; D61.818 Other pancytopenia; G40.909 Epilepsy, unspecified, not intractable, without status epilepticus; K22.10 Ulcer of esophagus without bleeding; Z76.5 Malingerer [conscious simulation]; Z79.899 Other long term (current) drug therapy; Z80.0 Family history of malignant neoplasm of digestive organs; Z80.3 Family history of malignant neoplasm of breast; Z87.891 Personal history of nicotine dependence; Z91.81 History of falling; D64.9 Anemia, unspecified; K29.70 Gastritis, unspecified, without bleeding; R00.0 Tachycardia, unspecified; R26.81 Unsteadiness on feet; R50.9 Fever, unspecified; Z87.81 Personal history of (healed) traumatic fracture

== ENCOUNTER 2017-11-02 09:13 | Inpatient (IN) | payer MEDICAID ==
[2017-11-02 09:14] VITALS: BMI 25.3
[2017-11-02] MEDS ORDERED: Sodium Chloride 0.9% 1,000 ML IV SCH (10:15)
--- NOTE | 2017-11-02 10:30 | RAD ---
HISTORY: weakness COMPARISON: Chest radiograph dated 10/30/2017. FINDINGS: LUNGS: No active pulmonary disease. PLEURA: No significant pleural effusion identified, no pneumothorax apparent. CARDIOVASCULAR: Atherosclerotic aortic calcifications. Cardiomediastinal silhouette unchanged. OSSEOUS STRUCTURES: Unchanged. VISUALIZED UPPER ABDOMEN: Normal. OTHER FINDINGS: None. IMPRESSION: No active disease.
--- NOTE | 2017-11-02 11:09 | ED PDOC ---
Lower Extremity Pain/Injury Time Seen by Provider: 11/02/17 10:00 Chief Complaint (Nursing): Lower Extremity Problem/Injury Chief Complaint (Provider): Gait Problem History Per: Patient History/Exam Limitations: no limitations Onset/Duration Of Symptoms: Days Current Symptoms Are (Timing): Still Present Severity: Moderate Additional History Per: Patient Additional Complaint(s): 52 y/o male with a history of alcohol w/d seizures presents to the ED with the inability to walk for the last few days. Pt was recently admitted to the hospital over the last 3-4 days and was still in the hospital this AM when he signed himself out against medical advice; pt states he wanted to check on his sick sister; pt was instructed to return if he changed his mind; aside from inability to walk/bear weight; pt states general weakness; no fever/chills/ sweats, no cp/sob/palpitations, no abd pain, no n/v, no numbness/tingling, no new seizures, pt denied drinking alcohol today; pt denied fall/trauma/sick contact, no travel; pt is here for further eval; pt's without other complaints PMD: family medicine clinic Past Medical History Reviewed: Historical Data, Nursing Documentation, Vital Signs Vital Signs: Last Vital Signs Temp 98.1 F 11/02/17 09:15 Pulse 101 H 11/02/17 09:15 Resp 16 11/02/17 09:15 BP 114/71 11/02/17 09:15 Pulse Ox 99 11/02/17 09:15 - Medical History PMH: Anemia, Back Problems (herniated disc), Deep Vein Thrombosis, Fractures ( rib fx, left shoulder, Left hand 5th digit, Humerus fracture), Gastritis, Seizures, Chronic Pain (left shoulder) Denies: Chronic Kidney Disease - Surgical History Surgical History: Endoscopy - Family History Family History: States: Unknown Family Hx - Social History Alcohol: < 2 Drinks/Day Drugs: Denies - Immunization History Hx Tetanus Toxoid Vaccination: Yes - Home Medications Home Medications: Ambulatory Orders Medication Instructions Recorded levETIRAcetam [Keppra] 500 mg PO Q12H 10/25/17 Miconazole CR [Miconazole 2% CREAM] 1 ea TP BID #1 tube 10/28/17 Famotidine [Pepcid] 20 mg PO BID 11/02/17 Omeprazole [Omeprazole] 40 mg PO DAILY 11/02/17 - Allergies Allergies/Adverse Reactions: Allergies Allergy/AdvReac Type Severity Reaction Status Date / Time aspirin Allergy NAUSEA Verified 10/29/17 00:38 ibuprofen [From Motrin] Allergy NAUSEA Verified 10/29/17 00:38 naproxen Allergy RASH Verified 10/29/17 00:38 NSAIDS (Non-Steroidal Allergy NAUSEA Verified 10/29/17 00:38 Anti-Inflamma Review of Systems ROS Statement: Except As Marked, All Systems Reviewed And Found Negative Constitutional: Negative for: Fever, Chills, Sweats, Other (fall, recent trauma) Eyes: Negative for: Pain, Vision Change ENT: Negative for: Ear Pain Cardiovascular: Negative for: Chest Pain, Palpitations Respiratory: Negative for: Cough, Shortness of Breath Gastrointestinal: Negative for: Nausea, Vomiting, Abdominal Pain, Other ( urinary changes) Genitourinary Male: Negative for: Incontinence, Other (bowel changes) Musculoskeletal: Negative for: Neck Pain, Back Pain, Leg Pain (or tingling) Neurological: Positive for: Weakness, Seizures, Other (gait difficulty) Psych: Negative for: Anxiety Physical Exam - Reviewed Nursing Documentation Reviewed: Yes Vital Signs Reviewed: Yes (mildly elevated HR) - Physical Exam Appears: Positive for: Well (alert/awake, GCS = 15, oriented x 3, slow to response but appropriate; cooperative, NAD, resting in bed, + faint ETOH on breath), Non-toxic, No Acute Distress, Uncomfortable (cooperative) Head Exam: Positive for: ATRAUMATIC, NORMAL INSPECTION, NORMOCEPHALIC (mild bi- temporal wasting) Skin: Positive for: Normal Color (multiple skin abrasions with skin puncture wounds covered by bandaides; cap refill < 1 sec, no jaundice noted), Warm Eye Exam: Positive for: Normal appearance, EOMI, PERRL. Negative for: Nystagmus ENT: Positive for: Normal ENT Inspection, Other (hint of EtOH on breath) Neck: Positive for: Normal, Painless ROM Cardiovascular/Chest: Positive for: Regular Rate, Rhythm, Chest Non Tender, Other (+S1, +S2). Negative for: Edema, Murmur Respiratory: Positive for: Normal Breath Sounds, Other (CTA b/l, no w/r/r, no accessory muscle use noted) Pulses-Femoral (L): 2+ Pulses-Femoral (R): 2+ Gastrointestinal/Abdominal: Positive for: Normal Exam, Soft Back: Positive for: Normal Inspection, Other (no step off, no midline tenderness , no gross deformities) Extremity: Positive for: Normal ROM, Other (+ strength 5-/5 grossly intact in all limbs, neurovasc intact b/l, intact ROM, + able to stand but very shakey and wide base stance) DTR - Knee (R): 2+ DTR - Knee (L): 2+ Neurologic/Psych: Positive for: Alert, Oriented, Other (slighlty slower in responses but are acceptable within normal limits, GCS 15) - Laboratory Results Result Diagrams: 11/02/17 10:56 11/02/17 10:56 Interpretation Of Abnormal: anemia (but stable); improved Ammonia level - ECG ECG: Positive for: Interpreted By Me Interpretation Of ECG: NSR at 90 bpm, normal axis, no ectopy, qs in leads V1-3, non-specific st-t changes, ABNL EKG; no gross changes compare of with old ekg 10/2017 O2 Sat by Pulse Oximetry: 99 Pulse Ox Interpretation: Normal - Radiology X-Ray: Viewed By Me, Read By Radiologist - Progress ED Course And Treament: HISTORY: weakness COMPARISON: Chest radiograph dated 10/30/2017. FINDINGS: LUNGS: No active pulmonary disease. PLEURA: No significant pleural effusion identified, no pneumothorax apparent. CARDIOVASCULAR: Atherosclerotic aortic calcifications. Cardiomediastinal silhouette unchanged. OSSEOUS STRUCTURES: Unchanged. VISUALIZED UPPER ABDOMEN: Normal. OTHER FINDINGS: None. IMPRESSION: No active disease. pt is not in any distress pt remains unable to walk properly family medicine team is made aware, will see patient, will likely admit patient 12:30p - pt is made aware of his medical results agrees with admission Re-evaluation Time: 12:30 Condition: Unchanged - Physician Consult Information Time Consulting Physican Contacted: 11:35 Physician Contacted: [facility] Outcome Of Conversation: will eval patient, will likely admit patient Medical Decision Making Medical Decision Making: Impression: cant walk, alcohol w/d seizure, weakness i have consider all the differential diagnosis regarding pt's chief medical complaints/clinical findings, including but are not limited to: cant walk, alcohol w/d seizure, weakness; ambulatory dysfunction A/P: cant walk, alcohol w/d seizure, weakness - labs - ammonia level - supportive care - observe/reevaluation 1135 - residential driver contacted, made aware, will see patient 1230 - family medicine at bedside, will admit patient Disposition - Clinical Impression Clinical Impression: Ambulatory dysfunction, Weakness, Anemia, Alcohol dependence - Patient ED Disposition Is Patient to be Admitted: Yes Discussed With Dr.: Chanelle Rowe Doctor Will See Patient In The: Hospital Counseled Patient/Family Regarding: Studies Performed, Diagnosis, Need For Followup, Rx Given - Disposition Disposition Time: 12:35 Condition: STABLE Instructions: Weakness (ED) Forms: [employer] (Greek) - Pt Status Changed To: Hospital Disposition Of: Inpatient - Admit Certification Admit to Inpatient:: After my assessment, the patient will require hospitalization for at least two midnights. This is because of the severity of symptoms shown, intensity of services needed, and/or the medical risk in this patient being treated as an outpatient.
[2017-11-02 11:12] LABS: EOS # 0.1 K/uL (0.0-0.7); EOS % 4.3 % (0.0-4.0); HEMOGLOBIN 8.7 g/dL (12.0-18.0); LYMPH # 0.4 K/uL (1.0-4.3); LYMPH % 16.6 % (20.0-40.0); MEAN CELL VOLUME 86.5 fl (80.0-94.0); MEAN CORPUSCULAR HEMOGLOBIN 29.1 pg (27.0-31.0); MEAN CORPUSCULAR HGB CONC 33.6 g/dL (33.0-37.0); MEAN PLATELET VOLUME 7.2 fl (7.2-11.7); MONO # 0.4 K/uL (0.0-0.8); MONO % 17.2 % (0.0-10.0); NEUT # 1.5 K/uL (1.8-7.0); NEUT % 60.9 % (50.0-75.0); NRBC % 0.1 % (0.0-0.0); RBC 2.98 Mil/uL (4.40-5.90); RED CELL DISTRIBUTION WIDTH 18.8 % (11.5-14.5); WHITE BLOOD COUNT 2.4 K/uL (4.8-10.8)
[2017-11-02 11:19] LABS: ALB/GLOB RATIO 0.6 (1.0-2.1); ALBUMIN 2.5 g/dL (3.5-5.0); ALT/SGPT 52 U/L (21-72); AST/SGOT 84 U/L (17-59); BLOOD UREA NITROGEN 10 mg/dl (9-20); CALCIUM 7.4 mg/dL (8.4-10.2); GFR AFRICAN-AMERICAN > 60; GFR NON-AFRICAN AMERICAN > 60; LIPASE 289 U/L (23-300)
[2017-11-02] MEDS ORDERED: Multivitamin (MVI) 10 ML, Thiamine 100 MG, Folic Acid 1 MG in Sodium Chloride 0.9% 1,00... IV ONE (13:10)
--- NOTE | 2017-11-02 13:36 | CP.PCM.HP ---
History of Present Illness - History of Present Illness History of Present Illness: History obtained from patient and review of medical record 52 yo male with a PMHx of EtOH withdrawal seizures, decompensated EtOH cirrhosis s/p TIPS (2014), severe esophagitis and recently noted esophageal ulcer (October 15, 2017) signed out AMA this morning. Pt reports feeling dizzy and unsteady when he went to his sister's house this morning. Reports to drink a sip of beer from his nephew. Denies hitting head, LOC, vision changes or focal weakness. Denies chest pain, dyspnea, headache, abdominal pain, nausea, constipation, vomiting, melena, hematochezia or dark stool. Denies tingling, numbness, bowel or bladder dysfunction. Denies any seizure episode since the left this morning. Pt received 2 units of PRBC yesterday, h&h this morning 8.7/ 25.8 ED COURSE: VS: BP 114/71, HR 101, RR 16, Temp 98.1 F, pulse ox 99% labs: BAL 50, CBC: 2.4>8.7/25.8<49 Ammonia: 42 CMP: Total bili 3.0, ast 84, alt 52, alkaline phosphate 128 PMD: [facility] ( last visit 09/27/17) PMHx: ETOH use disorder, EtOH withdrawal seziures disorder, liver cirrhosis and esophageal ucler. Meds: Keppra 500mg PO BID PsurgHx: TIPS in 2014 PHospHx: multiple ED visits for ETOH abuse, Hepatic Encephalopathy SocialHx: 2-3 cigarettes per day, ETOH and denies illicit drug use. Denies drinking alcohol last night (however alcohol level in ED was 166), FamilyHx: Father [place], mother breast cancer, siblings alive, sister recently diagnosed with colon cancer Next of kin: Sister Missy: [phone] Code Status: full code Present on Admission - Present on Admission Any Indicators Present on Admission: Yes Review of Systems - Constitutional Constitutional: absent: Chills, Fever - EENT Eyes: absent: Change in Vision Nose/Mouth/Throat: absent: Odynophagia, Sore Throat - Cardiovascular Cardiovascular: absent: Chest Pain, Chest Pain at Rest, Dyspnea - Respiratory Respiratory: absent: Cough, Dyspnea - Gastrointestinal Gastrointestinal: absent: Abdominal Pain, Nausea, Vomiting - Genitourinary Genitourinary: absent: Dysuria, Hematuria - Musculoskeletal Musculoskeletal: Abnormal Gait - Neurological Neurological: Abnormal Gait, Dizziness. absent: Confusion, Focal Weakness, Headaches, Loss of Vision - Hematologic/Lymphatic Hematologic: absent: Easy Bleeding, Easy Bruising Past Patient History - Infectious Disease Hx of Infectious Diseases: None - Tetanus Immunizations Tetanus Immunization: Unknown - Past Medical History & Family History Past Medical History?: Yes - Past Social History Alcohol: < 2 Drinks/Day - NEUROLOGICAL Hx Seizures: Yes - HEENT Hx HEENT Problems: No - RENAL Hx Chronic Kidney Disease: No - ENDOCRINE/METABOLIC Hx Endocrine Disorders: No - HEMATOLOGICAL/ONCOLOGICAL Hx Anemia: Yes - INTEGUMENTARY Hx Dermatological Problems: Yes Hx Cellulitis: Yes - MUSCULOSKELETAL/RHEUMATOLOGICAL Hx Fractures: Yes (rib fx, left shoulder, Left hand 5th digit, Humerus fracture) - GASTROINTESTINAL Hx Gastritis: Yes - PSYCHIATRIC Hx Psychophysiologic Disorder: No Hx Substance Use: No - SURGICAL HISTORY Hx Surgeries: Yes - ANESTHESIA Hx Anesthesia: Yes Hx Anesthesia Reactions: No Hx Malignant Hyperthermia: No Meds Allergies/Adverse Reactions: Allergies Allergy/AdvReac Type Severity Reaction Status Date / Time aspirin Allergy NAUSEA Verified 10/29/17 00:38 ibuprofen [From Motrin] Allergy NAUSEA Verified 10/29/17 00:38 naproxen Allergy RASH Verified 10/29/17 00:38 NSAIDS (Non-Steroidal Allergy NAUSEA Verified 10/29/17 00:38 Anti-Inflamma Physical Exam - Constitutional Appears: Non-toxic, No Acute Distress - Head Exam Head Exam: NORMAL INSPECTION - Eye Exam Eye Exam: EOMI, Scleral icterus - ENT Exam ENT Exam: Mucous Membranes Moist, Normal Oropharynx - Neck Exam Neck exam: Positive for: Normal Inspection. Negative for: Lymphadenopathy - Respiratory Exam Respiratory Exam: Clear to Auscultation Bilateral, NORMAL BREATHING PATTERN. absent: Rales, Rhonchi, Wheezes - Cardiovascular Exam Cardiovascular Exam: REGULAR RHYTHM, RRR, +S1, +S2 - GI/Abdominal Exam GI & Abdominal Exam: Distended (mild), Normal Bowel Sounds, Soft. absent: Rebound - Extremities Exam Additional comments: strength 5/5 in all extremities, NVI, Full ROM. - Neurological Exam Neurological exam: Abnormal Gait (unsteady gait), Alert, Oriented x3 - Psychiatric Exam Psychiatric exam: Anxious - Skin Additional comments: multiple abrasions on upper extremities covered with bandage. No active bleeding seen. Results - Vital Signs Recent Vital Signs: Last Vital Signs Temp 98.1 F 11/02/17 09:15 Pulse 101 H 11/02/17 09:15 Resp 16 11/02/17 09:15 BP 114/71 11/02/17 09:15 Pulse Ox 99 11/02/17 11:42 - Labs Result Diagrams: 11/02/17 10:56 11/02/17 10:56 Labs: Laboratory Results - last 24 hr 11/02/17 11/02/17 11/02/17 10:56 10:56 10:56 WBC 2.4 L RBC 2.98 L Hgb 8.7 L Hct 25.8 L MCV 86.5 MCH 29.1 MCHC 33.6 RDW 18.8 H Plt Count 49 L MPV 7.2 Neut % (Auto) 60.9 Lymph % (Auto) 16.6 L [place] % (Auto) 17.2 H Eos % (Auto) 4.3 H Baso % (Auto) 1.0 Neut # (Auto) 1.5 L Lymph # (Auto) 0.4 L [place] # (Auto) 0.4 Eos # (Auto) 0.1 Baso # (Auto) 0.0 Sodium 135 Potassium 3.6 Chloride 105 Carbon Dioxide 17 L Anion Gap 17 BUN 10 Creatinine 0.5 L Est GFR ( Amer) > 60 Est GFR (Non-Af Amer) > 60 Random Glucose 101 Calcium 7.4 L Phosphorus 2.6 Magnesium 1.5 L Total Bilirubin 3.0 H AST 84 H ALT 52 Alkaline Phosphatase 128 H Ammonia 42 Troponin I < 0.0120 Total Protein 6.5 Albumin 2.5 L Globulin 3.9 Albumin/Globulin Ratio 0.6 L Lipase 289 TSH 3rd Generation 2.46 Alcohol, Quantitative 50 H Blood Type Antibody Screen BBK History Checked 11/02/17 10:56 WBC RBC Hgb Hct MCV MCH MCHC RDW Plt Count MPV Neut % (Auto) Lymph % (Auto) [place] % (Auto) Eos % (Auto) Baso % (Auto) Neut # (Auto) Lymph # (Auto) [place] # (Auto) Eos # (Auto) Baso # (Auto) Sodium Potassium Chloride Carbon Dioxide Anion Gap BUN Creatinine Est GFR ( Amer) Est GFR (Non-Af Amer) Random Glucose Calcium Phosphorus Magnesium Total Bilirubin AST ALT Alkaline Phosphatase Ammonia Troponin I Total Protein Albumin Globulin Albumin/Globulin Ratio Lipase TSH 3rd Generation Alcohol, Quantitative Blood Type O POSITIVE Antibody Screen Negative BBK History Checked Patient has bt Assessment & Plan - Assessment and Plan (Free Text) Assessment: 52 yo male pmxh seizures, ETOH use disorder, Hepatic encephalopathy, alcohol Liver Cirrhosis with TIPs procedure signed out AMA this morning now admitted for unsteady gait and dizziness. Plan: -Dizziness and unsteady gait -Head CT on 10/29/17 showed no acute pathology -Start banana bag at 126 cc/hr -C/w home medication: Keppra 500 mg po BID -Denies any seizure episode or LOC this morning. -Undomiciled and lives alone Alcohol use disorder: -admits to drinking this morning -BAL 50 -Start banana bag at 126 cc/hr -Ativan 1 mg po q6hr prn -Monitor Acute on chronic anemia -Chronic liver cirrhosis -H/H: 8.7/25.8 s/p 2 units prbc yesterday. -f/u CBC DVT prophylaxis -SCDs for now -platelet: 49 Code status: Full code
[2017-11-02 13:49] LABS: URINE BACTERIA RARE (<OCC); URINE BILIRUBIN NEGATIVE (NEGATIVE); URINE BLOOD NEGATIVE (NEGATIVE); URINE CLARITY SLIGHTY-CLOUDY (Clear); URINE COLOR YELLOW (YELLOW); URINE GLUCOSE (UA) NEG (Normal); URINE LEUKOCYTE ESTERASE NEG Leu/uL (Negative); URINE PROTEIN NEGATIVE (NEGATIVE)
[2017-11-02 14:03] LABS: BARBITURATES, UR NEGATIVE (NEGATIVE); BENZODIAZEPINES, UR POSITIVE (NEGATIVE); OPIATES, UR NEGATIVE (NEGATIVE); PHENCYCLIDINE, UR NEGATIVE (NEGATIVE)
[2017-11-02 16:13] VITALS: PULSE 81
[2017-11-02 18:47] VITALS: BP 123/65; RESP 19; TEMP 98.5
[2017-11-02 19:52] VITALS: O2SAT 98
--- NOTE | 2017-11-02 22:00 | CP.PCM.PCO ---
Addendum Addendum: 11/02/17 21:58 Patient left AMA 2 hours ago. AMA form signed. Patient aware of possible complications
--- NOTE | 2017-11-03 08:22 | CARD ---
APPROVED REPORT EKG Measurement Heart [id number] <Conclusion> Normal sinus rhythm Cannot rule out Anterior infarct, age undetermined Abnormal ECG
--- NOTE | 2017-11-03 13:59 | PQF GENQUE ---
Dr. Rowe, Please clarify the type of anemia: if known:i.e Blood loss anemia, acute Blood loss anemia, chronic Chronic anemia Deficiency anemia (please specify type) Due to/in/with antineoplastic chemotherapy Due to/in/with chronic kidney disease Due to/in/with kidney failure Due to/in/with neoplastic disease Iron deficiency anemia Macrocytic anemia Microcytic anemia Normocytic anemia Postoperative blood loss anemia Pernicious anemia Other anemia (please specify) Clinically unable to determine Unknown H and P: dxs. include: Acute on chronic anemia -Chronic liver cirrhosis -H/H: 8.7/25.8 s/p 2 units prbc yesterday. -f/u CBC This form is a permanent part of the medical record Clarification of your documentation is requested to better reflect the severity of illness and intensity of treatment of your patient. Indicators present [] Specify: [] [] Specify: [] [] Specify: [] [] Specify: [] Location in the medical record that reflects the above clinical findings: [] Treatment Provided: [] PHYSICIAN'S RESPONSE Based on your medical judgment of the clinical indicators outlined above please clarify the following: [] Practitioner response [] If unable to determine, please check the box, sign and date. Present On Admission (POA) Indicator: [] Present at the time of admission [] Not present at the time of admission [] Clinically Undetermined In responding to this query, please exercise your independent professional judgment. The fact that a question is asked does not imply that any particular answer is desired or expected. Thank you for your clarification on this documentation. If you have any questions please call. * Thank you, Ghazal Carblalo RN ext. #[phone] MTDD
--- NOTE | 2017-11-03 14:06 | PQF GENQUE ---
Dr. Salvador Montaño, Please provide the underlying diagnosis causing the patient's documented symptom : if known versus etiology unknown Patient admitted with dizziness and unsteady gait OR: Other explanation of clinical finding H and P: 52 yo male pmxh seizures, ETOH use disorder, Hepatic encephalopathy, alcohol Liver Cirrhosis with TIPs procedure signed out AMA this morning now admitted for unsteady gait and dizziness. Plan: -Dizziness and unsteady gait -Head CT on 10/29/17 showed no acute pathology -Start banana bag at 126 cc/hr -C/w home medication: Keppra 500 mg po BID -Denies any seizure episode or LOC this morning. -Undomiciled and lives alone This form is a permanent part of the medical record Clarification of your documentation is requested to better reflect the severity of illness and intensity of treatment of your patient. Indicators present [] Specify: [] [] Specify: [] [] Specify: [] [] Specify: [] Location in the medical record that reflects the above clinical findings: [] Treatment Provided: [] PHYSICIAN'S RESPONSE Based on your medical judgment of the clinical indicators outlined above please clarify the following: [] Practitioner response [] If unable to determine, please check the box, sign and date. Present On Admission (POA) Indicator: [] Present at the time of admission [] Not present at the time of admission [] Clinically Undetermined In responding to this query, please exercise your independent professional judgment. The fact that a question is asked does not imply that any particular answer is desired or expected. Thank you for your clarification on this documentation. If you have any questions please call. * Thank you, Ghazal Carballo RN ext. #[phone] MTDD
== END 2017-11-02 20:30 | disposition left against medical advice (07) | DRG 749 ==
LOC: H.ER 09:13 → H.ERHOLD 13:31 → H.MEDSURG1 17:43
PROVIDERS: ADMIT Family Medicine Geriatric Medicine; ATTEND Family Medicine Geriatric Medicine
DX: F10.239 Alcohol dependence with withdrawal, unspecified (principal); K70.30 Alcoholic cirrhosis of liver without ascites; R56.9 Unspecified convulsions; K22.10 Ulcer of esophagus without bleeding; K29.70 Gastritis, unspecified, without bleeding; Z79.899 Other long term (current) drug therapy; D64.9 Anemia, unspecified; Z80.0 Family history of malignant neoplasm of digestive organs; Z80.3 Family history of malignant neoplasm of breast; Z87.891 Personal history of nicotine dependence

== ENCOUNTER 2017-11-03 21:53 | Emergency (ER) | payer MEDICAID ==
[2017-11-03 21:54] VITALS: BMI 25.3
[2017-11-03 22:03] VITALS: BP 116/79; PULSE 83; RESP 16; TEMP 98; O2SAT 99
--- NOTE | 2017-11-03 22:34 | ED PDOC ---
HPI: Male Pain Time Seen by Provider: 11/03/17 22:08 Chief Complaint (Nursing): Alcohol Ingestion Chief Complaint (Provider): increased urine frequency History Per: Patient History/Exam Limitations: no limitations Onset/Duration Of Symptoms: Days (1 month) Current Symptoms Are (Timing): Still Present Additional Complaint(s): 52 y/o male ambulates to ED for evaluation of increased urine frequency x 1 month. Denies fever, nausea/vomiting, abdominal pain, dysuria, hematuria, penile pain/discharge. Patient also reports having a seizure earlier today. Denies headache, dizziness , extremity numbness/weakness, chest pain, shortness of breath, palpitations. Did not take his keppra today. Past Medical History Reviewed: Historical Data, Nursing Documentation, Vital Signs Vital Signs: Last Vital Signs Temp 98 F 11/03/17 21:59 Pulse 83 11/03/17 21:59 Resp 16 11/03/17 21:59 BP 116/79 11/03/17 21:59 Pulse Ox 99 11/03/17 21:59 - Medical History PMH: Anemia, Back Problems (herniated disc), Deep Vein Thrombosis, Fractures ( rib fx, left shoulder, Left hand 5th digit, Humerus fracture), Gastritis, Seizures, Chronic Pain (left shoulder) Denies: Chronic Kidney Disease - Surgical History Surgical History: Endoscopy - Family History Family History: States: Unknown Family Hx - Immunization History Hx Tetanus Toxoid Vaccination: Yes - Home Medications Home Medications: Ambulatory Orders Medication Instructions Recorded levETIRAcetam [Keppra] 500 mg PO Q12H 10/25/17 Miconazole CR [Miconazole 2% CREAM] 1 ea TP BID #1 tube 10/28/17 Famotidine [Pepcid] 20 mg PO BID 11/02/17 Omeprazole [Omeprazole] 40 mg PO DAILY 11/02/17 - Allergies Allergies/Adverse Reactions: Allergies Allergy/AdvReac Type Severity Reaction Status Date / Time aspirin Allergy NAUSEA Verified 11/03/17 21:59 ibuprofen [From Motrin] Allergy NAUSEA Verified 11/03/17 21:59 naproxen Allergy RASH Verified 11/03/17 21:59 NSAIDS (Non-Steroidal Allergy NAUSEA Verified 11/03/17 21:59 Anti-Inflamma Review of Systems ROS Statement: Except As Marked, All Systems Reviewed And Found Negative Genitourinary Male: Positive for: Frequency Neurological: Positive for: Seizures Physical Exam - Reviewed Nursing Documentation Reviewed: Yes Vital Signs Reviewed: Yes - Physical Exam Appears: Positive for: Well, Non-toxic, No Acute Distress Head Exam: Positive for: ATRAUMATIC, NORMAL INSPECTION, NORMOCEPHALIC Skin: Positive for: Normal Color Eye Exam: Positive for: Normal appearance ENT: Positive for: Normal ENT Inspection Cardiovascular/Chest: Positive for: Regular Rate, Rhythm Respiratory: Positive for: Normal Breath Sounds Gastrointestinal/Abdominal: Positive for: Normal Exam Extremity: Positive for: Normal ROM Neurologic/Psych: Positive for: Alert, Oriented - ECG O2 Sat by Pulse Oximetry: 99 - Progress ED Course And Treament: Patient was admitted 10/29 and signed AMA 11/02, returned to ED 11/02 and was readmitted, and then again signed AMA last night because he "wasn't being fed" Patient refusing blood work, asking for light to be turned off and that he cannot urinate now and will do it when he is "ready". Patient well known to ED and poem writer for bed-seeking behavior. labs and U/A reviewed from yesterday; no acute findings Patient self-presented to ED with steady gait. Patient is stable for discharge. Diana christensen PO ordered Patient was advised to follow up with PMD 2-3 days. Return precautions given. Disposition - Clinical Impression Clinical Impression: Seizure disorder, Urine frequency - Patient ED Disposition Is Patient to be Admitted: No Counseled Patient/Family Regarding: Studies Performed, Diagnosis, Need For Followup - Disposition Disposition: Routine/Home Disposition Time: 23:15 Condition: STABLE Instructions: Epilepsy in Adults
== END 2017-11-04 00:05 | disposition home or self-care (01) ==
LOC: H.ER 21:53
DX: G40.909 Epilepsy, unspecified, not intractable, without status epilepticus (principal); R35.0 Frequency of micturition; G89.29 Other chronic pain; Z86.718 Personal history of other venous thrombosis and embolism; Z88.6 Allergy status to analgesic agent

== ENCOUNTER 2017-11-04 03:26 | Emergency (ER) | payer MEDICAID ==
[2017-11-04 03:27] VITALS: BMI 25.3
[2017-11-04 03:36] VITALS: BP 129/72; PULSE 78; RESP 18; TEMP 98.6; O2SAT 100
--- NOTE | 2017-11-04 03:59 | ED PDOC ---
HPI: Seizure Time Seen by Provider: 11/04/17 03:47 Chief Complaint (Nursing): Seizure Chief Complaint (Provider): seizure History Per: Patient Additional Complaint(s): 52 y/o male brought in by EMS for evaluation of possible seizure. Patient states he called 911 because as he was walking from [place] with his friend he had a seizure. Patient awake, alert, oriented upon arrival. No head injury , urine incontinence, head injury. Requesting light to be turned off so he can watch tv. Patient just discharged from ED 2 hours ago after being given Keppra PO. Past Medical History Reviewed: Historical Data, Nursing Documentation, Vital Signs Vital Signs: Last Vital Signs Temp 98.6 F 11/04/17 03:31 Pulse 78 11/04/17 03:31 Resp 18 11/04/17 03:31 BP 129/72 11/04/17 03:31 Pulse Ox 100 11/04/17 04:03 - Medical History PMH: Anemia, Back Problems (herniated disc), Deep Vein Thrombosis, Fractures ( rib fx, left shoulder, Left hand 5th digit, Humerus fracture), Gastritis, Seizures, Chronic Pain (left shoulder) Denies: Chronic Kidney Disease - Surgical History Surgical History: Endoscopy - Family History Family History: States: Unknown Family Hx - Immunization History Hx Tetanus Toxoid Vaccination: Yes - Home Medications Home Medications: Ambulatory Orders Medication Instructions Recorded levETIRAcetam [Keppra] 500 mg PO Q12H 10/25/17 Omeprazole [Omeprazole] 40 mg PO DAILY 11/02/17 - Allergies Allergies/Adverse Reactions: Allergies Allergy/AdvReac Type Severity Reaction Status Date / Time aspirin Allergy NAUSEA Verified 11/07/17 12:16 ibuprofen [From Motrin] Allergy NAUSEA Verified 11/07/17 12:16 naproxen Allergy RASH Verified 11/07/17 12:16 NSAIDS (Non-Steroidal Allergy NAUSEA Verified 11/07/17 12:16 Anti-Inflamma Review of Systems ROS Statement: Except As Marked, All Systems Reviewed And Found Negative Neurological: Positive for: Seizures Physical Exam - Reviewed Nursing Documentation Reviewed: Yes Vital Signs Reviewed: Yes - Physical Exam Appears: Positive for: Well, Non-toxic, No Acute Distress Head Exam: Positive for: ATRAUMATIC, NORMAL INSPECTION, NORMOCEPHALIC Skin: Positive for: Normal Color Eye Exam: Positive for: Normal appearance, EOMI, PERRL ENT: Positive for: Normal ENT Inspection Cardiovascular/Chest: Positive for: Regular Rate, Rhythm Respiratory: Positive for: Normal Breath Sounds Gastrointestinal/Abdominal: Positive for: Normal Exam Back: Positive for: Normal Inspection Extremity: Positive for: Normal ROM Neurologic/Psych: Positive for: Alert, Oriented. Negative for: Motor/Sensory Deficits - ECG O2 Sat by Pulse Oximetry: 100 - Progress ED Course And Treament: Patient remains AAOx3 in ED. Does not appear post-ictal, no withdrawal signs. Patient requires no further intervention in the ED and is stable for discharge. Disposition - Clinical Impression Clinical Impression: Seizure disorder Counseled Patient/Family Regarding: Diagnosis, Need For Followup - Disposition Disposition: Routine/Home Disposition Time: 05:30 Condition: STABLE Instructions: Seizures, Adult (DC)
== END 2017-11-04 06:38 | disposition home or self-care (01) ==
LOC: H.ER 03:26
DX: G40.909 Epilepsy, unspecified, not intractable, without status epilepticus (principal)

== ENCOUNTER 2017-11-04 20:49 | Emergency (ER) | payer MEDICAID ==
[2017-11-04 20:49] VITALS: BMI 25.3
--- NOTE | 2017-11-04 21:14 | ED PDOC ---
HPI: Seizure Time Seen by Provider: 11/04/17 21:11 Chief Complaint (Nursing): Seizure Chief Complaint (Provider): Complaint of Seizure History Per: Patient History/Exam Limitations: no limitations Recent Seizure Activity Began: Unknown Number Of Seizures: One Length Of Seizures (Duration): Unknown Quality Of Seizure: Generalized Associated Symptoms: Other (none) Post-ictal Period: No Past Medical History Reviewed: Historical Data, Nursing Documentation, Vital Signs Vital Signs: Last Vital Signs Temp 98.5 F 11/05/17 00:09 Pulse 85 11/05/17 00:09 Resp 18 11/05/17 00:09 BP 120/65 11/05/17 00:09 Pulse Ox 99 11/05/17 00:09 - Medical History PMH: Anemia, Back Problems (herniated disc), Deep Vein Thrombosis, Fractures ( rib fx, left shoulder, Left hand 5th digit, Humerus fracture), Gastritis, Seizures, Chronic Pain (left shoulder) Denies: Chronic Kidney Disease - Surgical History Surgical History: Endoscopy - Family History Family History: States: Unknown Family Hx - Immunization History Hx Tetanus Toxoid Vaccination: Yes - Home Medications Home Medications: Ambulatory Orders Medication Instructions Recorded levETIRAcetam [Keppra] 500 mg PO Q12H 10/25/17 Omeprazole [Omeprazole] 40 mg PO DAILY 11/02/17 - Allergies Allergies/Adverse Reactions: Allergies Allergy/AdvReac Type Severity Reaction Status Date / Time aspirin Allergy NAUSEA Verified 11/04/17 03:31 ibuprofen [From Motrin] Allergy NAUSEA Verified 11/04/17 03:31 naproxen Allergy RASH Verified 11/04/17 03:31 NSAIDS (Non-Steroidal Allergy NAUSEA Verified 11/04/17 03:31 Anti-Inflamma Review of Systems ROS Statement: Except As Marked, All Systems Reviewed And Found Negative Constitutional: Negative for: Fever, Chills, Sweats, Weakness, Malaise Eyes: Negative for: Vision Change Cardiovascular: Negative for: Chest Pain, Palpitations Respiratory: Negative for: Cough, Shortness of Breath Gastrointestinal: Negative for: Nausea, Vomiting, Diarrhea, Constipation Physical Exam - Reviewed Nursing Documentation Reviewed: Yes Vital Signs Reviewed: Yes - Physical Exam Appears: Positive for: Well, Non-toxic, No Acute Distress Head Exam: Positive for: ATRAUMATIC, NORMAL INSPECTION, NORMOCEPHALIC Skin: Positive for: Normal Color, Warm, Dry. Negative for: Diaphoresis Eye Exam: Positive for: Normal appearance. Negative for: Nystagmus, Periorbital swelling, Periorbital tenderness, Conjunctival injection Neck: Positive for: Normal, Painless ROM, Supple Cardiovascular/Chest: Positive for: Regular Rate, Rhythm, Chest Non Tender, Edema. Negative for: Bradycardia, Tachycardia Respiratory: Positive for: Normal Breath Sounds. Negative for: Accessory Muscle Use, Crackles, Rales, Rhonchi, Stridor Pulses-Carotid (L): 2+ Pulses-Carotid (R): 2+ Pulses-Radial (L): 2+ Pulses-Radial (R): 2+ - ECG O2 Sat by Pulse Oximetry: 98 Medical Decision Making Medical Decision Making: Pt is well known to the ED staff and presents on numerous occasions of same day in search of food and drink; Pt, during HPE requested food from the provider Pt indicated that he has a neurology appt on Wednesday 11/08 Disposition - Clinical Impression Clinical Impression: History of seizure, Seizure, Simple seizure - Patient ED Disposition Is Patient to be Admitted: No Doctor Will See Patient In The: Office - Disposition Referrals: formerly [facility] [Outside] Disposition Time: 00:09 Condition: GOOD Instructions: Seizures, Adult (DC), Seizures, Drugs to Help You Stop Using Tobacco Forms: [facility] (Monegasque)
[2017-11-05 00:09] VITALS: BP 120/65; PULSE 85; RESP 18; TEMP 98.5
[2017-11-05 02:27] VITALS: O2SAT 98
[2017-11-05] MEDS ORDERED: HYDROmorphone 0.5 mg/0.5 ml ISec ONE (06:00)
== END 2017-11-04 23:20 | disposition home or self-care (01) ==
LOC: H.ER 20:49
DX: G40.909 Epilepsy, unspecified, not intractable, without status epilepticus (principal); Z88.6 Allergy status to analgesic agent

== ENCOUNTER 2017-11-05 20:08 | Emergency (ER) | payer MEDICAID ==
[2017-11-05 20:08] VITALS: BMI 25.3
[2017-11-05 21:10] VITALS: BP 112/66; PULSE 103; RESP 18; TEMP 98; O2SAT 98
--- NOTE | 2017-11-05 21:54 | ED PDOC ---
HPI: Male Pain Time Seen by Provider: 11/05/17 21:35 Chief Complaint (Nursing): Male Genitourinary History Per: Patient Additional Complaint(s): Pt. c/o urinary frequency without dysuria or urgency x 1 day. Pt. states he's had to urinate 6 times today. Denies abdominal pain, fever, flank pain, back pain. Past Medical History Reviewed: Historical Data, Nursing Documentation, Vital Signs Vital Signs: Last Vital Signs Temp 98 F 11/05/17 21:04 Pulse 103 H 11/05/17 21:04 Resp 18 11/05/17 21:04 BP 112/66 11/05/17 21:04 Pulse Ox 98 11/05/17 21:04 - Medical History PMH: Anemia, Back Problems (herniated disc), Deep Vein Thrombosis, Fractures ( rib fx, left shoulder, Left hand 5th digit, Humerus fracture), Gastritis, Seizures, Chronic Pain (left shoulder) Denies: Chronic Kidney Disease - Surgical History Surgical History: Endoscopy - Family History Family History: States: No Known Family Hx - Immunization History Hx Tetanus Toxoid Vaccination: Yes - Home Medications Home Medications: Ambulatory Orders Medication Instructions Recorded levETIRAcetam [Keppra] 500 mg PO Q12H 10/25/17 Omeprazole [Omeprazole] 40 mg PO DAILY 11/02/17 - Allergies Allergies/Adverse Reactions: Allergies Allergy/AdvReac Type Severity Reaction Status Date / Time aspirin Allergy NAUSEA Verified 11/04/17 03:31 ibuprofen [From Motrin] Allergy NAUSEA Verified 11/04/17 03:31 naproxen Allergy RASH Verified 11/04/17 03:31 NSAIDS (Non-Steroidal Allergy NAUSEA Verified 11/04/17 03:31 Anti-Inflamma Review of Systems ROS Statement: Except As Marked, All Systems Reviewed And Found Negative Physical Exam - Physical Exam Appears: Positive for: Well, Non-toxic, No Acute Distress Skin: Positive for: Normal Color, Warm. Negative for: Rash Eye Exam: Positive for: Normal appearance Cardiovascular/Chest: Positive for: Regular Rate, Rhythm. Negative for: Tachycardia Respiratory: Positive for: Normal Breath Sounds. Negative for: Respiratory Distress Gastrointestinal/Abdominal: Positive for: Normal Exam, Soft. Negative for: Tenderness Back: Positive for: Normal Inspection. Negative for: L CVA Tenderness, R CVA Tenderness Neurologic/Psych: Positive for: Alert, Oriented - Laboratory Results Urine dip results: Positive for: Blood (trace). Negative for: Leukocyte Esterase, Nitrate, Ketones, Glucose, Bilirubin, Protein - ECG O2 Sat by Pulse Oximetry: 98 - Progress ED Course And Treament: Udip ordered. Disposition - Clinical Impression Clinical Impression: Urinary frequency - Patient ED Disposition Is Patient to be Admitted: No - Disposition Referrals: [facility] [Outside] Disposition: Routine/Home Disposition Time: 22:30 Condition: STABLE Additional Instructions: Follow up with MIC for further evaluation Return to ED immediately if symptoms worsen Forms: [employer] (Romanian) Print Language: FRENCH
== END 2017-11-05 22:56 | disposition home or self-care (01) ==
LOC: H.ER 20:08
DX: R35.0 Frequency of micturition (principal); G89.29 Other chronic pain; Z86.718 Personal history of other venous thrombosis and embolism; Z88.6 Allergy status to analgesic agent

== ENCOUNTER 2017-11-06 17:39 | Emergency (ER) | payer MEDICAID ==
[2017-11-06 17:57] VITALS: BP 126/73; PULSE 89; RESP 16; TEMP 97.8; O2SAT 100
--- NOTE | 2017-11-06 18:00 | ED PDOC ---
HPI: General Adult Time Seen by Provider: 11/06/17 17:41 Chief Complaint (Provider): Pt reports seizure History Per: Patient History/Exam Limitations: no limitations Onset/Duration Of Symptoms: Hrs Have you had recent travel within the past 21 days to any of the following countries: [place], [place], [place] or [place]?: No Current Symptoms Are (Timing): Better Additional Complaint(s): 52 yo male with history of seizure ambulated with steady gait into triage reports seizures. Pt was seen in ER lobby several times today eating and changing channels on TV. Past Medical History Reviewed: Historical Data, Nursing Documentation, Vital Signs Vital Signs: Last Vital Signs Temp 97.8 F 11/06/17 17:54 Pulse 89 11/06/17 17:54 Resp 16 11/06/17 17:54 BP 126/73 11/06/17 17:54 Pulse Ox 100 11/06/17 17:54 - Medical History PMH: Anemia, Back Problems (herniated disc), Deep Vein Thrombosis, Fractures ( rib fx, left shoulder, Left hand 5th digit, Humerus fracture), Gastritis, Seizures, Chronic Pain (left shoulder) Denies: Chronic Kidney Disease - Surgical History Surgical History: Endoscopy - Family History Family History: States: No Known Family Hx - Immunization History Hx Tetanus Toxoid Vaccination: Yes - Home Medications Home Medications: Ambulatory Orders Medication Instructions Recorded levETIRAcetam [Keppra] 500 mg PO Q12H 10/25/17 Omeprazole [Omeprazole] 40 mg PO DAILY 11/02/17 - Allergies Allergies/Adverse Reactions: Allergies Allergy/AdvReac Type Severity Reaction Status Date / Time aspirin Allergy NAUSEA Verified 11/04/17 03:31 ibuprofen [From Motrin] Allergy NAUSEA Verified 11/04/17 03:31 naproxen Allergy RASH Verified 11/04/17 03:31 NSAIDS (Non-Steroidal Allergy NAUSEA Verified 11/04/17 03:31 Anti-Inflamma Review of Systems ROS Statement: Except As Marked, All Systems Reviewed And Found Negative Constitutional: Negative for: Fever, Chills Neurological: Positive for: Seizures Physical Exam - Reviewed Nursing Documentation Reviewed: Yes Vital Signs Reviewed: Yes - Physical Exam Appears: Positive for: Well, Non-toxic, No Acute Distress Head Exam: Positive for: ATRAUMATIC, NORMAL INSPECTION, NORMOCEPHALIC Skin: Positive for: Normal Color, Warm, DRY Eye Exam: Positive for: Normal appearance, EOMI, PERRL ENT: Positive for: Normal ENT Inspection Neck: Positive for: Normal, Painless ROM Cardiovascular/Chest: Positive for: Regular Rate, Rhythm Respiratory: Positive for: CNT, Normal Breath Sounds Back: Positive for: Normal Inspection Extremity: Positive for: Normal ROM Neurologic/Psych: Positive for: Alert, Oriented Disposition - Clinical Impression Clinical Impression: Malingering - Patient ED Disposition Is Patient to be Admitted: No - Disposition Disposition: Routine/Home Disposition Time: 17:45 Condition: GOOD
== END 2017-11-06 18:08 | disposition home or self-care (01) ==
LOC: H.ER 17:39
DX: Z76.5 Malingerer [conscious simulation] (principal)

== ENCOUNTER 2017-11-10 22:35 | Emergency (ER) | payer MEDICAID ==
--- NOTE | 2017-11-10 23:42 | ED PDOC ---
HPI: General Adult Time Seen by Provider: 11/10/17 22:53 Chief Complaint (Nursing): Seizure Chief Complaint (Provider): Self reported seizures History Per: Patient Recently: Seen In ED Additional Complaint(s): 52 yo male, presents to ER for evaluation of self reported seizures. Patient is well known to provider and facility for multiple visits with similar complaints and bed seeking behavior. At present, patient denies any fever, chills, chest pain, shortness of breath, or seizure episodes. Patient offers no medical complaints. Past Medical History Reviewed: Historical Data, Nursing Documentation, Vital Signs Vital Signs: Last Vital Signs Temp 98.0 F 11/10/17 22:44 Pulse 86 11/11/17 00:07 Resp 18 11/11/17 00:07 BP 122/75 11/11/17 00:07 Pulse Ox 98 11/11/17 00:07 - Medical History PMH: Anemia, Back Problems (herniated disc), Deep Vein Thrombosis, Fractures ( rib fx, left shoulder, Left hand 5th digit, Humerus fracture), Gastritis, Seizures, Chronic Pain (left shoulder) Denies: Chronic Kidney Disease - Surgical History Surgical History: Endoscopy - Family History Family History: States: No Known Family Hx - Immunization History Hx Tetanus Toxoid Vaccination: Yes Hx Influenza Vaccination: No Hx Pneumococcal Vaccination: No - Home Medications Home Medications: Ambulatory Orders Medication Instructions Recorded levETIRAcetam [Keppra] 500 mg PO Q12H 10/25/17 Omeprazole [Omeprazole] 40 mg PO DAILY 11/02/17 - Allergies Allergies/Adverse Reactions: Allergies Allergy/AdvReac Type Severity Reaction Status Date / Time aspirin Allergy NAUSEA Verified 11/07/17 12:16 ibuprofen [From Motrin] Allergy NAUSEA Verified 11/07/17 12:16 naproxen Allergy RASH Verified 11/07/17 12:16 NSAIDS (Non-Steroidal Allergy NAUSEA Verified 11/07/17 12:16 Anti-Inflamma Review of Systems ROS Statement: Except As Marked, All Systems Reviewed And Found Negative Constitutional: Negative for: Fever, Chills Cardiovascular: Negative for: Chest Pain Respiratory: Negative for: Shortness of Breath Gastrointestinal: Negative for: Abdominal Pain Neurological: Negative for: Seizures Physical Exam - Reviewed Nursing Documentation Reviewed: Yes Vital Signs Reviewed: Yes - Physical Exam Appears: Positive for: Non-toxic, No Acute Distress Head Exam: Positive for: NORMAL INSPECTION Skin: Positive for: Normal Color Eye Exam: Positive for: Normal appearance Neck: Positive for: Supple Cardiovascular/Chest: Positive for: Regular Rate, Rhythm Respiratory: Positive for: Normal Breath Sounds. Negative for: Respiratory Distress Extremity: Positive for: Normal ROM. Negative for: Deformity Neurologic/Psych: Positive for: Alert, Oriented. Negative for: Motor/Sensory Deficits - ECG O2 Sat by Pulse Oximetry: 97 (RA) Pulse Ox Interpretation: Normal Medical Decision Making Medical Decision Making: Impression: Plan: -- Blood glucose, POC Scribe Attestation: Documented by Kajal Chakraborty, acting as a scribe for Olaf Fernandez MD Provider Scribe Attestation: All medical record entries made by the Scribe were at my direction and personally dictated by me. I have reviewed the chart and agree that the record accurately reflects my personal performance of the history, physical exam, medical decision making, and the department course for this patient. I have also personally directed, reviewed, and agree with the discharge instructions and disposition. Disposition - Clinical Impression Clinical Impression: Malingering - Disposition Referrals: Matt Moreno APN [Primary Care Provider] - Disposition: Routine/Home Disposition Time: 23:30 Condition: STABLE Forms: [email or web address] (Rwandan)
[2017-11-11 05:25] VITALS: RESP 18
[2017-11-11 05:44] VITALS: O2SAT 97
[2017-11-11 05:50] VITALS: BP 125/76; PULSE 84; TEMP 97.9
== END 2017-11-11 05:42 | disposition home or self-care (01) ==
LOC: H.ER 22:35
DX: Z76.5 Malingerer [conscious simulation] (principal); G89.29 Other chronic pain; Z86.718 Personal history of other venous thrombosis and embolism; Z88.6 Allergy status to analgesic agent; R56.9 Unspecified convulsions

== ENCOUNTER 2017-11-11 22:13 | Emergency (ER) | payer MEDICAID ==
[2017-11-11 22:21] VITALS: BP 111/55; PULSE 104; RESP 18; TEMP 98.7; O2SAT 98
[2017-11-11] MEDS ORDERED: Lidocaine 1% Inj (20ml) IJ STA (23:05)
[2017-11-11] MEDS ORDERED: Tdap Vaccine 0.5 ml Vial (10-64 yrs) IM ONE (23:05)
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
== END 2017-11-12 05:22 | disposition home or self-care (01) ==
LOC: H.ER 22:13
DX: S01.81XA Laceration without foreign body of other part of head, initial encounter (principal); W22.8XXA Striking against or struck by other objects, initial encounter; Y92.410 Unspecified street and highway as the place of occurrence of the external cause; F17.210 Nicotine dependence, cigarettes, uncomplicated; G89.29 Other chronic pain; Z86.718 Personal history of other venous thrombosis and embolism; Z88.6 Allergy status to analgesic agent

== ENCOUNTER 2017-11-14 14:03 | Observation (INO) | payer MEDICAID ==
--- NOTE | 2017-11-14 14:50 | ED PDOC ---
HPI: General Adult Time Seen by Provider: 11/14/17 14:40 Chief Complaint (Nursing): GI Problem Chief Complaint (Provider): gi bleed History Per: Patient History/Exam Limitations: no limitations Onset/Duration Of Symptoms: Other (today) Have you had recent travel within the past 21 days to any of the following countries: [place], [place], [place] or [place]?: No Current Symptoms Are (Timing): Still Present Severity: Moderate Additional History Per: Patient, Prior Records Additional Complaint(s): pt p/w + sudden onset of GI bleeding while using the bathroom today/this morning ; pt states he noted 2-3 episodes of bloody BM; pt subsequently took a shower and proceeded to felt nauseous and vomited x 4-5 episodes and noted all blood; pt states + weakness/easily fatigued/lightheadedness/dizziness, no LOC; pt denied Fever/chills/sweats, + mild abd cramps/pain, + nausea, + decr appetite; no urinary changes, no fall/trauma/sick contact, no travel; pt denied [facility]; pt with prior hx of similar complaints; pt is here for further eval pt's without other complaints. PCP: Dr Moreno (family medicine) Past Medical History Reviewed: Historical Data, Nursing Documentation, Vital Signs Vital Signs: Last Vital Signs Temp 98.0 F 11/14/17 14:21 Pulse 96 H 11/14/17 14:21 Resp 20 11/14/17 14:21 BP 124/74 11/14/17 14:21 Pulse Ox 99 11/14/17 15:44 - Medical History PMH: Anemia, Back Problems (herniated disc), Deep Vein Thrombosis, Fractures ( rib fx, left shoulder, Left hand 5th digit, Humerus fracture), Gastritis, Seizures, Chronic Pain (left shoulder) Denies: Chronic Kidney Disease - Surgical History Surgical History: Endoscopy - Family History Family History: States: Unknown Family Hx - Living Arrangements Living Arrangements: Alone - Social History Current smoker - smoking cessation education provided: Yes Ex-Smoker (has not smoked in the last 12 months): No Alcohol: Occasional Drugs: Denies - Immunization History Hx Tetanus Toxoid Vaccination: Yes Hx Influenza Vaccination: No Hx Pneumococcal Vaccination: No - Home Medications Home Medications: Ambulatory Orders Medication Instructions Recorded levETIRAcetam [Keppra] 500 mg PO Q12H 10/25/17 - Allergies Allergies/Adverse Reactions: Allergies Allergy/AdvReac Type Severity Reaction Status Date / Time aspirin Allergy NAUSEA Verified 11/14/17 14:21 ibuprofen [From Motrin] Allergy NAUSEA Verified 11/14/17 14:21 naproxen Allergy RASH Verified 11/14/17 14:21 NSAIDS (Non-Steroidal Allergy NAUSEA Verified 11/14/17 14:21 Anti-Inflamma Review of Systems ROS Statement: Except As Marked, All Systems Reviewed And Found Negative Constitutional: Positive for: Weakness, Malaise. Negative for: Fever, Chills, Sweats Eyes: Negative for: Pain ENT: Negative for: Ear Pain, Nose Pain Cardiovascular: Negative for: Chest Pain, Paroxysmal Noc. Dyspnea Respiratory: Negative for: Cough, SOB with Exertion Gastrointestinal: Positive for: Nausea, Vomiting, Abdominal Pain, Hematemesis, Other (GI bleed). Negative for: Melena Genitourinary Male: Negative for: Dysuria, Frequency, Incontinence, Hematuria Musculoskeletal: Negative for: Neck Pain, Shoulder Pain, Arm Pain, Back Pain, Hand Pain Skin: Negative for: Rash Neurological: Positive for: Weakness, Dizziness. Negative for: Headache Psych: Negative for: Anxiety, Depression, Psychosis Physical Exam - Reviewed Nursing Documentation Reviewed: Yes Vital Signs Reviewed: Yes (WNL) - Physical Exam Comments: General: alert/awake, GCS = 15, oriented x 3, resting in bed, uncomfortable, cooperative, interactive; NAD Head: NC/AT; mild bi-temporal wasting EYE: PERRLA, EOMI, sclera anicteric, no nystagmus, no photophobia; visual field intact b/l Facial: WNL Oral: uvula/tongue are midline, no exudate/lesions, no drooling/stridor, no dysphonia; fair dentitions; mild dry oral mucosa NECK: intact ROM, no midline tenderness, no nuchal rigidity, no meningeal signs ; no step off Chest: CTA b/l, no w/r/r; no tachypenia, no accessory muscle use noted Cardiac: +S1, +S2, no m/r/r, no tachycardia Abdominal: +BS, soft/nd; mild diffuse mid abd tenderness, well nourished patient ; no masses/rebound/guarding/rigidity; no suarez's sign, no mcburney's point tenderness /rectal: + multiple external hemorrhoids noted, NON-thrombosed/non-indurated; no open sores noted; GUAIC: positive; no melanotic stool noted Extremities: intact ROM, strength 5/5 grossly intact in all limbs, neurovasc intact b/l; + ambulatory; reflex +2/2; no pitting edema noted b/l, no ambrose's sign noted b/l BACK: no step off, no midline tenderness, NO crepitus, no gross deformities noted; Intact ROM; NO CVAT b/l SKIN: cap refill ~ 1 sec, no ulcerations, no petechiae, no rashes; no gross pallor noted NEURO: CNII-XII WNL, no facial asymmetries, no slurr speech, oriented x 3 NIH stroke scale ~ 0 Psych: normal insight, normal affect; follows command with ease - Laboratory Results Result Diagrams: 11/14/17 15:11 11/14/17 15:11 - ECG ECG: Positive for: Interpreted By Me, Viewed By Me Interpretation Of ECG: NSR at 85 bpm, normal axis, no ectopy, qs in leads V1-2, no st changes, ABNL EKG ; unchanged compare with old ekg 10/2017 O2 Sat by Pulse Oximetry: 99 Pulse Ox Interpretation: Normal - Radiology X-Ray: Viewed By Me - Progress ED Course And Treament: 09/2017 Endoscopy report: (Dr Berry) Findings: - 1 superficial esophageal ulcer with no bleeding and no stigmata of recent bleeding was found. The lesion is 7 mm in largest dimension. Biopsies were taken with a cold forceps for histology - the exam of the esophagus was otherwise WNL - the Z-line was regular and was found in the gastric body and in the gastric antrum - suspected gastroparesis due to absence of peristalsis and retained gastric contents - diffuse severe inflammation characterized by erythema was found in the cardia , in the gastric fundus, in the gastric body and in the gastric antrum. Biopsies were taken with a cold forcepts for H pylori testing. - The duodenal bulb and 2nd portion of the duodenum were normal 3:40pm - I spoke to residential driver butadiene converter utility operator, made aware, will come evaluate patient, pending final disposition 4:10pm - residential driver at bedside, evaluated patient, will admit patient and will continue to monitor; pt will remain NPO pt is currently comfortable pt is not in any distress pt is made aware of his medical results agrees with admission/observation Re-evaluation Time: 16:40 Condition: Improving,but remains with symptoms - Physician Consult Information Time Consulting Physican Contacted: 15:30 Physician Contacted: [facility] Medical Decision Making Medical Decision Making: Impression: hematemesis/GI BLEED i have consider all the differential diagnosis regarding pt's chief medical complaints/clinical findings, including but are not limited to: GI Bleed/ hematemesis A/P: hematemesis/GI bleed; weakness - labs - iv - type - ua - xray - supportive care - observe/reevaluation Disposition - Clinical Impression Clinical Impression: Gastrointestinal hemorrhage, Hematemesis with nausea, Weakness, Gastritis Clinical Impression: (Ruled Out): Esophageal varices - Patient ED Disposition Is Patient to be Admitted: Yes Counseled Patient/Family Regarding: Studies Performed, Diagnosis, Rx Given - Disposition Disposition Time: 16:00 Condition: STABLE Instructions: Weakness (ED) Forms: [employer] (Ukrainian) Print Language: CONGOLESE
[2017-11-14 15:16] LABS: VENOUS BLOOD GAS BASE EXCESS 3.2 mmol/L (0.0-2.0); VENOUS BLOOD GAS PCO2 45 mmHg (40-60); VENOUS BLOOD GAS PO2 22 mm/Hg (30-55); VENOUS BLOOD PH 7.41 (7.32-7.43)
[2017-11-14 15:18] LABS: EOS # 0.1 K/uL (0.0-0.7); MEAN CELL VOLUME 87.3 fl (80.0-94.0); MEAN CORPUSCULAR HEMOGLOBIN 28.6 pg (27.0-31.0); MEAN CORPUSCULAR HGB CONC 32.8 g/dL (33.0-37.0); MEAN PLATELET VOLUME 7.8 fl (7.2-11.7); MONO # 0.5 K/uL (0.0-0.8); NRBC % 0.1 % (0.0-0.0); PLATELET COUNT 110 K/uL (130-400); RBC 3.14 Mil/uL (4.40-5.90); RED CELL DISTRIBUTION WIDTH 20.5 % (11.5-14.5); WHITE BLOOD COUNT 4.9 K/uL (4.8-10.8)
[2017-11-14 15:27] LABS: INR 1.5 (0.9-1.2); PARTIAL THROMBOPLASTIN TIME 43.5 Seconds (25.6-37.1); PROTHROMBIN TIME 17.3 Seconds (9.8-13.1)
[2017-11-14 15:36] LABS: ALB/GLOB RATIO 0.7 (1.0-2.1); ALBUMIN 2.8 g/dL (3.5-5.0); ALT/SGPT 54 U/L (21-72); AST/SGOT 89 U/L (17-59); BLOOD UREA NITROGEN 19 mg/dl (9-20); CALCIUM 8.2 mg/dL (8.4-10.2); GFR AFRICAN-AMERICAN > 60; GFR NON-AFRICAN AMERICAN > 60; LIPASE 335 U/L (23-300)
[2017-11-14 16:02] LABS: LYMPH % 10.6 % (20.0-40.0); NEUT % 75.2 % (50.0-75.0)
[2017-11-14 16:03] LABS: BASO % 2.1 % (0.0-2.0); EOS % 2.1 % (0.0-4.0)
[2017-11-14 16:04] LABS: BASO # 0.1 K/uL (0.0-0.2); LYMPH # 0.5 K/uL (1.0-4.3); NEUT # 3.7 K/uL (1.8-7.0)
[2017-11-14 16:09] LABS: ANISOCYTOSIS MODERATE; EOSINOPHIL 1 % (0-7); LYMPHOCYTE 10 % (20-50); MONOCYTE 11 % (0-10); NEUTROPHIL 78 % (42-75); PLATELET ESTIMATE DECREASED (NORMAL); TOTAL CELLS COUNTED 100
[2017-11-14 16:10] LABS: HYPOCHROMIC MODERATE
[2017-11-14 16:11] LABS: OVALOCYTES SLIGHT
[2017-11-14 16:12] LABS: TOXIC GRANULATION PRESENT
--- NOTE | 2017-11-14 16:29 | CP.PCM.HP ---
History of Present Illness - History of Present Illness History of Present Illness: 52 yo , m, PMhx/o ETOH withdrawal seizures, decompensate ETOH cirrhosis s/p TIPS (2014), severe esophagitis and recently noted esophageal ulcer (October 15, 2017) presents c/o 2 episodes of red blood BM noticed 2 hours ago while on the toilet with not presence of stool or diarrhea ( just blood) . Patient subsequent had a shower and he felt nauseous, weak and had 4-5 bloody vomiting associated with epigrastric discomfort ( burning sensation ). Patient denies drinking ETOH or using drugs and when asked about the last time had a drink, he answered I dont know. Patient reports had a recent admission in [facility] for seizures. He denies fever, cough, SOB, chest pain, dysuria, pyrosis. Reports taking keppra and forgot to take prilosec today. PMD: [facility] ( last visit 09/27/17). Seen by Dr Saldana PMHx: ETOH use disorder, EtOH withdrawal seziures disorder, liver cirrhosis and esophageal ucler. Meds: Keppra 500mg PO BID PsurgHx: TIPS in 2014 PHospHx: multiple ED visits for ETOH abuse, Hepatic Encephalopathy SocialHx: 2-3 cigarettes per day, ETOH and denies illicit drug use. Denies drinking alcohol last night (however alcohol level in ED was 166), FamilyHx: Father [place], mother breast cancer, siblings alive, sister recently diagnosed with colon cancer Next of kin: Sister Missy: [phone] Code Status: full code ED course: VS: normal Labs: CBC: 4.9>9.0<110 Lipase: 335 AST: 89 alkphosp: 148 Imaging: CXR, Series XR pending Meds: Pantoprazol 40 mg IV .Reglan 10 mg IV Present on Admission - Present on Admission Any Indicators Present on Admission: No History of DVT/PE: No History of Uncontrolled Diabetes: No Urinary Catheter: No Review of Systems - Review of Systems All systems: reviewed and no additional remarkable complaints except - Gastrointestinal Gastrointestinal: Abdominal Pain Additional comments: hematemesis enterorrhagia Past Patient History - Infectious Disease Hx of Infectious Diseases: None - Tetanus Immunizations Tetanus Immunization: Unknown - Past Medical History & Family History Past Medical History?: Yes - Past Social History Alcohol: Occasional Drugs: Denies - NEUROLOGICAL Hx Seizures: Yes - HEENT Hx HEENT Problems: No - RENAL Hx Chronic Kidney Disease: No - ENDOCRINE/METABOLIC Hx Endocrine Disorders: No - HEMATOLOGICAL/ONCOLOGICAL Hx Anemia: Yes - INTEGUMENTARY Hx Dermatological Problems: Yes - MUSCULOSKELETAL/RHEUMATOLOGICAL Hx Fractures: Yes (rib fx, left shoulder, Left hand 5th digit, Humerus fracture) - GASTROINTESTINAL Hx Gastritis: Yes - PSYCHIATRIC Hx Psychophysiologic Disorder: No Hx Substance Use: No (patient denies) - SURGICAL HISTORY Hx Surgeries: Yes - ANESTHESIA Hx Anesthesia: Yes Hx Anesthesia Reactions: No Hx Malignant Hyperthermia: No Meds Allergies/Adverse Reactions: Allergies Allergy/AdvReac Type Severity Reaction Status Date / Time aspirin Allergy NAUSEA Verified 11/14/17 14:21 ibuprofen [From Motrin] Allergy NAUSEA Verified 11/14/17 14:21 naproxen Allergy RASH Verified 11/14/17 14:21 NSAIDS (Non-Steroidal Allergy NAUSEA Verified 11/14/17 14:21 Anti-Inflamma Physical Exam - Constitutional Appears: No Acute Distress - Head Exam Head Exam: ATRAUMATIC, NORMOCEPHALIC - Eye Exam Eye Exam: EOMI, Scleral icterus (mild b/l ). absent: Conjunctival injection - ENT Exam ENT Exam: Mucous Membranes Moist - Neck Exam Neck exam: Positive for: Normal Inspection - Respiratory Exam Respiratory Exam: Clear to Auscultation Bilateral. absent: Rales, Rhonchi, Wheezes - Cardiovascular Exam Cardiovascular Exam: REGULAR RHYTHM, +S1 - GI/Abdominal Exam GI & Abdominal Exam: Normal Bowel Sounds, Soft. absent: Rebound - Rectal Exam Additional comments: refused rectal exam. as per ED attending. rectal + Guaiac, no melena - Extremities Exam Extremities exam: Positive for: normal inspection. Negative for: pedal edema - Skin Skin Exam: Pallor Results - Vital Signs Recent Vital Signs: Last Vital Signs Temp 98.0 F 11/14/17 14:21 Pulse 96 H 11/14/17 14:21 Resp 20 11/14/17 14:21 BP 124/74 11/14/17 14:21 Pulse Ox 99 11/14/17 16:22 - Labs Result Diagrams: 11/14/17 15:11 11/14/17 15:11 Labs: Laboratory Results - last 24 hr 11/14/17 11/14/17 11/14/17 15:07 15:11 15:11 WBC 4.9 D RBC 3.14 L Hgb 9.0 L Hct 27.4 L MCV 87.3 MCH 28.6 MCHC 32.8 L RDW 20.5 H Plt Count 110 L D MPV 7.8 Neut % (Auto) 75.2 H Lymph % (Auto) 10.6 L Harney % (Auto) 10.0 Eos % (Auto) 2.1 Baso % (Auto) 2.1 H Neut # (Auto) 3.7 Lymph # (Auto) 0.5 L Harney # (Auto) 0.5 Eos # (Auto) 0.1 Baso # (Auto) 0.1 Neutrophils % (Manual) 78 H Lymphocytes % (Manual) 10 L Monocytes % (Manual) 11 H Eosinophils % (Manual) 1 Toxic Granulation Present Platelet Estimate Decreased L Hypochromasia (manual) Moderate Anisocytosis (manual) Moderate Ovalocytes Slight PT INR APTT pO2 22 L VBG pH 7.41 VBG pCO2 45 VBG HCO3 25.8 VBG Total CO2 29.9 H VBG O2 Sat (Calc) 34.2 L VBG Base Excess 3.2 H VBG Potassium 4.0 Sodium 141.0 141 Chloride 106.0 106 Glucose 118 H Lactate 1.8 FiO2 21.0 Potassium 4.1 Carbon Dioxide 24 Anion Gap 15 BUN 19 Creatinine 0.6 L Est GFR ( Amer) > 60 Est GFR (Non-Af Amer) > 60 Random Glucose 115 H Lactic Acid Calcium 8.2 L Total Bilirubin 2.2 H AST 89 H D ALT 54 Alkaline Phosphatase 148 H Total Protein 7.1 Albumin 2.8 L Globulin 4.3 H Albumin/Globulin Ratio 0.7 L Lipase 335 H Venous Blood Potassium 4.0 Blood Type Antibody Screen BBK History Checked 11/14/17 11/14/17 11/14/17 15:11 15:11 15:11 WBC RBC Hgb Hct MCV MCH MCHC RDW Plt Count MPV Neut % (Auto) Lymph % (Auto) Harney % (Auto) Eos % (Auto) Baso % (Auto) Neut # (Auto) Lymph # (Auto) Harney # (Auto) Eos # (Auto) Baso # (Auto) Neutrophils % (Manual) Lymphocytes % (Manual) Monocytes % (Manual) Eosinophils % (Manual) Toxic Granulation Platelet Estimate Hypochromasia (manual) Anisocytosis (manual) Ovalocytes PT 17.3 H INR 1.5 H APTT 43.5 H pO2 VBG pH VBG pCO2 VBG HCO3 VBG Total CO2 VBG O2 Sat (Calc) VBG Base Excess VBG Potassium Sodium Chloride Glucose Lactate FiO2 Potassium Carbon Dioxide Anion Gap BUN Creatinine Est GFR ( Amer) Est GFR (Non-Af Amer) Random Glucose Lactic Acid 1.6 Calcium Total Bilirubin AST ALT Alkaline Phosphatase Total Protein Albumin Globulin Albumin/Globulin Ratio Lipase Venous Blood Potassium Blood Type O POSITIVE Antibody Screen Negative BBK History Checked Patient has bt Assessment & Plan - Assessment and Plan (Free Text) Plan: 52 yo male pmxh seizures, ETOH use disorder, Hepatic encephalopathy, Alcohol Liver Cirrhosis with TIPs procedure admitted for GI bleeding 1)GI Bleeding -secondary to ETOH cirrhosis vs esophageal ulcer -recent EGD esophageal ulcer (October 15, 2017) -NPO, IV fluids -s/p Pantoprazol 40 IV , c/w PPI drip -guaiac + -GI consult suggested: dscussed [facility] 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 Dr Malcom [place] 2) ETOH cirrhosis - s/p TIPS (2014) -denies recent ETOH intake -Ceftriaxone 1 g daily to prevent SBP 3)Anemia -secondary to GI bleeding and chronic disease ( Etoh cirrhosis) -H.0 -f/u CBC 4)Seizures -may be 2/2 ETOH withdrawal -NPO -c/w Keppra IV 500 mg BID -Ativan 1 mg IV Q6h PRN -CIWA score 0 5) DVT Prophylaxis -SCD. Active bleeding
[2017-11-14 17:23] LABS: URINE BACTERIA RARE (<OCC); URINE BILIRUBIN NEGATIVE (NEGATIVE); URINE BLOOD NEGATIVE (NEGATIVE); URINE CLARITY SLIGHTY-CLOUDY (Clear); URINE COLOR YELLOW (YELLOW); URINE GLUCOSE (UA) NEG (Normal); URINE LEUKOCYTE ESTERASE NEG Leu/uL (Negative); URINE PROTEIN NEGATIVE (NEGATIVE)
[2017-11-14] MEDS: Sodium Chloride 0.9% 1,000 ML IV SCH (17:33)
[2017-11-14 18:01] LABS: BARBITURATES, UR NEGATIVE (NEGATIVE); BENZODIAZEPINES, UR POSITIVE (NEGATIVE); OPIATES, UR NEGATIVE (NEGATIVE); PHENCYCLIDINE, UR NEGATIVE (NEGATIVE)
[2017-11-14] MEDS: Pantoprazole 40 MG in Sodium Chloride 0.9% 100 ML IVPB SCH (20:26)
[2017-11-14] MEDS ORDERED: levETIRAcetam 500 MG in Sodium Chloride 0.9% 100 ML IVPB SCH (21:00)
[2017-11-15] MEDS: Pantoprazole 40 MG in Sodium Chloride 0.9% 100 ML IVPB SCH ×2 (00:39→05:47)
[2017-11-15] MEDS: Sodium Chloride 0.9% 1,000 ML IV SCH (04:58)
[2017-11-15 06:10] LABS: EOS # 0.1 K/uL (0.0-0.7); EOS % 4.5 % (0.0-4.0); LYMPH # 0.7 K/uL (1.0-4.3); LYMPH % 24.6 % (20.0-40.0); MEAN CELL VOLUME 86.9 fl (80.0-94.0); MEAN CORPUSCULAR HEMOGLOBIN 28.6 pg (27.0-31.0); MEAN PLATELET VOLUME 7.3 fl (7.2-11.7); MONO # 0.4 K/uL (0.0-0.8); MONO % 12.4 % (0.0-10.0); NEUT # 1.7 K/uL (1.8-7.0); NEUT % 57.5 % (50.0-75.0); NRBC % 0.1 % (0.0-0.0); RBC 2.79 Mil/uL (4.40-5.90); RED CELL DISTRIBUTION WIDTH 20.2 % (11.5-14.5)
[2017-11-15 06:35] LABS: ALB/GLOB RATIO 0.6 (1.0-2.1); ALBUMIN 2.4 g/dL (3.5-5.0); ALT/SGPT 46 U/L (21-72); AST/SGOT 71 U/L (17-59); BLOOD UREA NITROGEN 14 mg/dl (9-20); CALCIUM 7.4 mg/dL (8.4-10.2); GFR AFRICAN-AMERICAN > 60; GFR NON-AFRICAN AMERICAN > 60; LIPASE 396 U/L (23-300)
[2017-11-15] MEDS ORDERED: Chlorhexidine Gluconate 1 APPL/PKT TP ONE (07:46)
--- NOTE | 2017-11-15 08:11 | CP.PCM.CON ---
<Edilma العراقي - Last Filed: 11/15/17 10:00> History of Present Illness - History of Present Illness History of Present Illness: GI Fellow PGY4 Consult Note This is a 52yo male with PMHx significant for decompensated EtOH cirrhosis s/p TIPS (2014), severe esophagitis and recently noted clean based esophageal ulcer (October 15, 2017), EtOH withdrawal seizures who presented to the ED with complaint of one episode of hematemesis and hematochezia.yesterday. The patient has presented to the ER multiple times, daily for the last month, and multiple admissions for similar complaints. Since admission he has had no episodes of either. Currently, he states he is hungry and wants to eat. He does not followup with any physicians as an outpt. He admits to ongoing EtOH abuse with intake multiple times this past week as documented by multiple elevated EtOH levels this month in EMR. He is noncompliant with medications and followup. On presentation pt's Hgb 9 at baseline, rectal by ER physician was negative for melena or hematochezia, pt refusing further rectal exams at time of evaluation. ROS: 12 system ROS performed and negative except where stated PMHx: As stated in HPI PSHx: TIPS in 2014 FHx: Sister with colon cancer at age 58yo Social: Denies EtOH use for >1 year but EtOH level +4 times in less than the past month; denies tobacco or illicit drug use Endo: EGD - 10/15/2017 - clean based Esophageal ulcer, retained food Colonoscopy - 06/2017 - Poor prep, internal/external hemorrhoids EGD - 04/2017 - LA Grade C esophagitis with visible vessel at EGJ s/p clip and injection of epi, portal hypertensive gastropathy Past Patient History - Infectious Disease Hx of Infectious Diseases: None - Tetanus Immunizations Tetanus Immunization: Unknown - Past Medical History & Family History Past Medical History?: Yes - Past Social History Smoking Status: Current Some Days Smoker - NEUROLOGICAL Hx Seizures: Yes - HEENT Hx HEENT Problems: No - RENAL Hx Chronic Kidney Disease: No - ENDOCRINE/METABOLIC Hx Endocrine Disorders: No - HEMATOLOGICAL/ONCOLOGICAL Hx Anemia: Yes - INTEGUMENTARY Hx Dermatological Problems: Yes - MUSCULOSKELETAL/RHEUMATOLOGICAL Hx Falls: No - GASTROINTESTINAL Hx Esophageal Varices: Yes Hx Gastritis: Yes - PSYCHIATRIC Hx Anxiety: Yes Hx Substance Use: Yes - SURGICAL HISTORY Hx Surgeries: Yes - ANESTHESIA Hx Anesthesia: Yes Hx Anesthesia Reactions: No Hx Malignant Hyperthermia: No Meds Allergies/Adverse Reactions: Allergies Allergy/AdvReac Type Severity Reaction Status Date / Time aspirin Allergy NAUSEA Verified 11/14/17 14:21 ibuprofen [From Motrin] Allergy NAUSEA Verified 11/14/17 14:21 naproxen Allergy RASH Verified 11/14/17 14:21 NSAIDS (Non-Steroidal Allergy NAUSEA Verified 11/14/17 14:21 Anti-Inflamma - Medications Medications: Current Medications Acetaminophen (Tylenol 325mg Tab) 650 mg PO Q6 PRN PRN Reason: Pain, Mild (1-3) Acetaminophen (Tylenol 325mg Tab) 650 mg PO Q6 PRN PRN Reason: Fever >100.4 F Last Admin: 11/14/17 20:47 Dose: 650 mg Sodium Chloride (Sodium Chloride 0.9%) 1,000 mls @ 130 mls/hr IV .[id number] [facility] Last Admin: 11/15/17 04:58 Dose: 130 mls/hr Levetiracetam 500 mg/ Sodium (Chloride) 105 mls @ 210 mls/hr IVPB Q12 [facility] Last Admin: 11/14/17 21:08 Dose: 210 mls/hr Ceftriaxone Sodium 1 gm/ (Sodium Chloride) 100 mls @ 100 mls/hr IVPB DAILY JANNIE PRN Reason: Protocol Last Admin: 11/14/17 17:34 Dose: 100 mls/hr Pantoprazole Sodium 40 mg/ (Sodium Chloride) 100 mls @ 20 mls/hr IVPB Q5H JANNIE PRN Reason: 8 MG/HR Last Admin: 11/15/17 05:47 Dose: 20 mls/hr Lorazepam (Ativan) 1 mg IVP Q6H PRN PRN Reason: Agitation Last Admin: 11/14/17 20:42 Dose: 1 mg Morphine Sulfate (Morphine) 2 mg IVP Q4 PRN PRN Reason: Pain, severe (8-10) Ondansetron HCl (Zofran Inj) 4 mg IVP Q6 PRN PRN Reason: Nausea/Vomiting Physical Exam - Constitutional Appears: Non-toxic, No Acute Distress Additional comments: tremulous - Head Exam Head Exam: ATRAUMATIC, NORMAL INSPECTION, NORMOCEPHALIC - Eye Exam Eye Exam: EOMI, Normal appearance, PERRL Pupil Exam: PERRL - ENT Exam ENT Exam: Mucous Membranes Dry - Neck Exam Neck exam: Positive for: Normal Inspection - Respiratory Exam Respiratory Exam: Clear to Auscultation Bilateral, NORMAL BREATHING PATTERN - Cardiovascular Exam Cardiovascular Exam: Tachycardia, +S1, +S2 - GI/Abdominal Exam GI & Abdominal Exam: Normal Bowel Sounds, Soft. absent: Distended, Organomegaly , Tenderness - Rectal Exam Additional comments: Pt refused - Extremities Exam Extremities exam: Positive for: full ROM, normal inspection - Back Exam Back exam: NORMAL INSPECTION - Neurological Exam Neurological exam: Alert, Oriented x3 - Psychiatric Exam Psychiatric exam: Normal Affect, Normal Mood - Skin Skin Exam: Dry, Intact, Normal Color, Warm Results - Vital Signs Recent Vital Signs: Last Vital Signs Temp 97.3 F L 11/15/17 08:01 Pulse 89 11/15/17 08:01 Resp 20 11/15/17 08:01 BP 124/77 11/15/17 08:01 Pulse Ox 96 11/15/17 08:01 - Labs Result Diagrams: 11/15/17 04:30 11/15/17 04:30 Labs: Laboratory Results - last 24 hr 11/14/17 11/14/17 11/14/17 15:07 15:11 15:11 WBC 4.9 D RBC 3.14 L Hgb 9.0 L Hct 27.4 L MCV 87.3 MCH 28.6 MCHC 32.8 L RDW 20.5 H Plt Count 110 L D MPV 7.8 Neut % (Auto) 75.2 H Lymph % (Auto) 10.6 L [place] % (Auto) 10.0 Eos % (Auto) 2.1 Baso % (Auto) 2.1 H Neut # (Auto) 3.7 Lymph # (Auto) 0.5 L [place] # (Auto) 0.5 Eos # (Auto) 0.1 Baso # (Auto) 0.1 Neutrophils % (Manual) 78 H Lymphocytes % (Manual) 10 L Monocytes % (Manual) 11 H Eosinophils % (Manual) 1 Toxic Granulation Present Platelet Estimate Decreased L Hypochromasia (manual) Moderate Anisocytosis (manual) Moderate Ovalocytes Slight PT INR APTT pO2 22 L VBG pH 7.41 VBG pCO2 45 VBG HCO3 25.8 VBG Total CO2 29.9 H VBG O2 Sat (Calc) 34.2 L VBG Base Excess 3.2 H VBG Potassium 4.0 Sodium 141.0 141 Chloride 106.0 106 Glucose 118 H Lactate 1.8 FiO2 21.0 Potassium 4.1 Carbon Dioxide 24 Anion Gap 15 BUN 19 Creatinine 0.6 L Est GFR ( Amer) > 60 Est GFR (Non-Af Amer) > 60 Random Glucose 115 H Lactic Acid Calcium 8.2 L Total Bilirubin 2.2 H AST 89 H D ALT 54 Alkaline Phosphatase 148 H Total Protein 7.1 Albumin 2.8 L Globulin 4.3 H Albumin/Globulin Ratio 0.7 L Lipase 335 H Venous Blood Potassium 4.0 Urine Color Urine Clarity Urine pH Ur Specific [place] Urine Protein Urine Glucose (UA) Urine Ketones Urine Blood Urine Nitrate Urine Bilirubin Urine Urobilinogen Ur Leukocyte Esterase Urine RBC (Auto) Urine Microscopic WBC Urine Bacteria Urine Opiates Screen Urine Methadone Screen Ur Barbiturates Screen Ur Phencyclidine Scrn Ur Amphetamines Screen U Benzodiazepines Scrn U Oth Cocaine Metabols U Cannabinoids Screen Alcohol, Quantitative Blood Type Antibody Screen BBK History Checked 11/14/17 11/14/17 11/14/17 15:11 15:11 15:11 WBC RBC Hgb Hct MCV MCH MCHC RDW Plt Count MPV Neut % (Auto) Lymph % (Auto) [place] % (Auto) Eos % (Auto) Baso % (Auto) Neut # (Auto) Lymph # (Auto) [place] # (Auto) Eos # (Auto) Baso # (Auto) Neutrophils % (Manual) Lymphocytes % (Manual) Monocytes % (Manual) Eosinophils % (Manual) Toxic Granulation Platelet Estimate Hypochromasia (manual) Anisocytosis (manual) Ovalocytes PT 17.3 H INR 1.5 H APTT 43.5 H pO2 VBG pH VBG pCO2 VBG HCO3 VBG Total CO2 VBG O2 Sat (Calc) VBG Base Excess VBG Potassium Sodium Chloride Glucose Lactate FiO2 Potassium Carbon Dioxide Anion Gap BUN Creatinine Est GFR ( Amer) Est GFR (Non-Af Amer) Random Glucose Lactic Acid 1.6 Calcium Total Bilirubin AST ALT Alkaline Phosphatase Total Protein Albumin Globulin Albumin/Globulin Ratio Lipase Venous Blood Potassium Urine Color Urine Clarity Urine pH Ur Specific [place] Urine Protein Urine Glucose (UA) Urine Ketones Urine Blood Urine Nitrate Urine Bilirubin Urine Urobilinogen Ur Leukocyte Esterase Urine RBC (Auto) Urine Microscopic WBC Urine Bacteria Urine Opiates Screen Urine Methadone Screen Ur Barbiturates Screen Ur Phencyclidine Scrn Ur Amphetamines Screen U Benzodiazepines Scrn U Oth Cocaine Metabols U Cannabinoids Screen Alcohol, Quantitative Blood Type O POSITIVE Antibody Screen Negative BBK History Checked Patient has bt 11/14/17 11/14/17 11/14/17 17:00 17:30 17:31 WBC RBC Hgb Hct MCV MCH MCHC RDW Plt Count MPV Neut % (Auto) Lymph % (Auto) [place] % (Auto) Eos % (Auto) Baso % (Auto) Neut # (Auto) Lymph # (Auto) [place] # (Auto) Eos # (Auto) Baso # (Auto) Neutrophils % (Manual) Lymphocytes % (Manual) Monocytes % (Manual) Eosinophils % (Manual) Toxic Granulation Platelet Estimate Hypochromasia (manual) Anisocytosis (manual) Ovalocytes PT INR APTT pO2 VBG pH VBG pCO2 VBG HCO3 VBG Total CO2 VBG O2 Sat (Calc) VBG Base Excess VBG Potassium Sodium Chloride Glucose Lactate FiO2 Potassium Carbon Dioxide Anion Gap BUN Creatinine Est GFR ( Amer) Est GFR (Non-Af Amer) Random Glucose Lactic Acid Calcium Total Bilirubin AST ALT Alkaline Phosphatase Total Protein Albumin Globulin Albumin/Globulin Ratio Lipase Venous Blood Potassium Urine Color Yellow Urine Clarity Slighty-cloudy Urine pH 6.0 Ur Specific [place] 1.019 Urine Protein Negative Urine Glucose (UA) Neg Urine Ketones Negative Urine Blood Negative Urine Nitrate Negative Urine Bilirubin Negative Urine Urobilinogen 4.0 Ur Leukocyte Esterase Neg Urine RBC (Auto) 3 Urine Microscopic WBC 1 Urine Bacteria Rare Urine Opiates Screen Negative Urine Methadone Screen Negative Ur Barbiturates Screen Negative Ur Phencyclidine Scrn Negative Ur Amphetamines Screen Negative U Benzodiazepines Scrn Positive U Oth Cocaine Metabols Negative U Cannabinoids Screen Negative Alcohol, Quantitative 49 H Blood Type Antibody Screen BBK History Checked 11/15/17 11/15/17 04:30 04:30 WBC 3.0 L RBC 2.79 L Hgb 8.0 L Hct 24.2 L MCV 86.9 MCH 28.6 MCHC 33.0 RDW 20.2 H Plt Count 91 L MPV 7.3 Neut % (Auto) 57.5 Lymph % (Auto) 24.6 [place] % (Auto) 12.4 H Eos % (Auto) 4.5 H Baso % (Auto) 1.0 Neut # (Auto) 1.7 L Lymph # (Auto) 0.7 L [place] # (Auto) 0.4 Eos # (Auto) 0.1 Baso # (Auto) 0.0 Neutrophils % (Manual) Lymphocytes % (Manual) Monocytes % (Manual) Eosinophils % (Manual) Toxic Granulation Platelet Estimate Hypochromasia (manual) Anisocytosis (manual) Ovalocytes PT INR APTT pO2 VBG pH VBG pCO2 VBG HCO3 VBG Total CO2 VBG O2 Sat (Calc) VBG Base Excess VBG Potassium Sodium 140 Chloride 108 H Glucose Lactate FiO2 Potassium 3.7 Carbon Dioxide 21 L Anion Gap 15 BUN 14 Creatinine 0.6 L Est GFR ( Amer) > 60 Est GFR (Non-Af Amer) > 60 Random Glucose 90 Lactic Acid Calcium 7.4 L Total Bilirubin 2.3 H AST 71 H D ALT 46 Alkaline Phosphatase 120 Total Protein 6.3 Albumin 2.4 L Globulin 3.9 Albumin/Globulin Ratio 0.6 L Lipase 396 H Venous Blood Potassium Urine Color Urine Clarity Urine pH Ur Specific [place] Urine Protein Urine Glucose (UA) Urine Ketones Urine Blood Urine Nitrate Urine Bilirubin Urine Urobilinogen Ur Leukocyte Esterase Urine RBC (Auto) Urine Microscopic WBC Urine Bacteria Urine Opiates Screen Urine Methadone Screen Ur Barbiturates Screen Ur Phencyclidine Scrn Ur Amphetamines Screen U Benzodiazepines Scrn U Oth Cocaine Metabols U Cannabinoids Screen Alcohol, Quantitative Blood Type Antibody Screen BBK History Checked Assessment & Plan - Assessment and Plan (Free Text) Assessment: Patient is a 52yo male with PMHx significant for decompensated EtOH cirrhosis s/ p TIPS (2014), severe esophagitis and recently noted esophageal ulcer (September), EtOH withdrawal seizures who presented to the ED with complaint of hematemesis and hematochezia 1. Decompensated EtOH cirrhosis s/p TIPS, MELD 14 on admission 2. Esophageal ulcer clean based 3. Suspected gastroparesis 4. Hematemesis/hematochezia-resolved, no active bleeding 5. EtOH abuse/intoxication 6. Hx of large internal/external hemorrhoids 7. Anemia/thrombocytopenia from chronic alcohol abuse/cirrhosis, bone marrow suppression Plan: -Continue supportive care -Pt refused rectal exam but in ER rectal exam documented as negative for melena/ hematochezia -No active GI bleeding; no further hematemesis or melena since admission -Hgb stable at baseline -Monitor H/H -Remains hemodynamically stable -Continue PPI daily -LFTs likely a result of recent EtOH use -Start clear liquid diet and advance as tolerated -IV Rocephin with hx of cirrhosis and possible GI bleed and temp of 100.6 which may also be from withdrawal symptoms, can change abx to po for total 7 days on discharge -Annusol-HC suppository to treat hemorrhoids -Encourage EtOH cessation, monitor for withdrawals -No plan for any endoscopic evaluation at his time -Recommend avoiding opioids with possible gastroparesis which can make symptoms worse and lead to emesis/hematemesis -Pt will need outpt gastric emptying study off opioids for further diagnosis and management -Please call with any questions or concerns <Gurpreet Germain - Last Filed: 11/15/17 10:22> Meds - Medications Medications: Current Medications Acetaminophen (Tylenol 325mg Tab) 650 mg PO Q6 PRN PRN Reason: Pain, Mild (1-3) Acetaminophen (Tylenol 325mg Tab) 650 mg PO Q6 PRN PRN Reason: Fever >100.4 F Last Admin: 11/14/17 20:47 Dose: 650 mg Sodium Chloride (Sodium Chloride 0.9%) 1,000 mls @ 130 mls/hr IV .[id number] [facility] Last Admin: 11/15/17 04:58 Dose: 130 mls/hr Levetiracetam 500 mg/ Sodium (Chloride) 105 mls @ 210 mls/hr IVPB Q12 [facility] Last Admin: 11/14/17 21:08 Dose: 210 mls/hr Ceftriaxone Sodium 1 gm/ (Sodium Chloride) 100 mls @ 100 mls/hr IVPB DAILY [facility] PRN Reason: Protocol Last Admin: 11/15/17 09:09 Dose: 100 mls/hr Lorazepam (Ativan) 1 mg IVP Q6H PRN PRN Reason: Agitation Last Admin: 11/14/17 20:42 Dose: 1 mg Morphine Sulfate (Morphine) 2 mg IVP Q4 PRN PRN Reason: Pain, severe (8-10) Ondansetron HCl (Zofran Inj) 4 mg IVP Q6 PRN PRN Reason: Nausea/Vomiting Pantoprazole Sodium (Protonix Inj) 40 mg IVP DAILY [facility] Last Admin: 11/15/17 09:08 Dose: 40 mg Results - Vital Signs Recent Vital Signs: Last Vital Signs Temp 97.3 F L 11/15/17 08:01 Pulse 89 11/15/17 08:01 Resp 20 11/15/17 08:01 BP 124/77 11/15/17 08:01 Pulse Ox 96 11/15/17 08:01 - Labs Result Diagrams: 11/15/17 04:30 11/15/17 04:30 Labs: Laboratory Results - last 24 hr 11/14/17 11/14/17 11/14/17 15:07 15:11 15:11 WBC 4.9 D RBC 3.14 L Hgb 9.0 L Hct 27.4 L MCV 87.3 MCH 28.6 MCHC 32.8 L RDW 20.5 H Plt Count 110 L D MPV 7.8 Neut % (Auto) 75.2 H Lymph % (Auto) 10.6 L [place] % (Auto) 10.0 Eos % (Auto) 2.1 Baso % (Auto) 2.1 H Neut # (Auto) 3.7 Lymph # (Auto) 0.5 L [place] # (Auto) 0.5 Eos # (Auto) 0.1 Baso # (Auto) 0.1 Neutrophils % (Manual) 78 H Lymphocytes % (Manual) 10 L Monocytes % (Manual) 11 H Eosinophils % (Manual) 1 Toxic Granulation Present Platelet Estimate Decreased L Hypochromasia (manual) Moderate Anisocytosis (manual) Moderate Ovalocytes Slight PT INR APTT pO2 22 L VBG pH 7.41 VBG pCO2 45 VBG HCO3 25.8 VBG Total CO2 29.9 H VBG O2 Sat (Calc) 34.2 L VBG Base Excess 3.2 H VBG Potassium 4.0 Sodium 141.0 141 Chloride 106.0 106 Glucose 118 H Lactate 1.8 FiO2 21.0 Potassium 4.1 Carbon Dioxide 24 Anion Gap 15 BUN 19 Creatinine 0.6 L Est GFR ( Amer) > 60 Est GFR (Non-Af Amer) > 60 Random Glucose 115 H Lactic Acid Calcium 8.2 L Total Bilirubin 2.2 H AST 89 H D ALT 54 Alkaline Phosphatase 148 H Ammonia Total Protein 7.1 Albumin 2.8 L Globulin 4.3 H Albumin/Globulin Ratio 0.7 L Lipase 335 H Venous Blood Potassium 4.0 Urine Color Urine Clarity Urine pH Ur Specific [place] Urine Protein Urine Glucose (UA) Urine Ketones Urine Blood Urine Nitrate Urine Bilirubin Urine Urobilinogen Ur Leukocyte Esterase Urine RBC (Auto) Urine Microscopic WBC Urine Bacteria Urine Opiates Screen Urine Methadone Screen Ur Barbiturates Screen Ur Phencyclidine Scrn Ur Amphetamines Screen U Benzodiazepines Scrn U Oth Cocaine Metabols U Cannabinoids Screen Alcohol, Quantitative Blood Type Antibody Screen BBK History Checked 11/14/17 11/14/17 11/14/17 15:11 15:11 15:11 WBC RBC Hgb Hct MCV MCH MCHC RDW Plt Count MPV Neut % (Auto) Lymph % (Auto) [place] % (Auto) Eos % (Auto) Baso % (Auto) Neut # (Auto) Lymph # (Auto) [place] # (Auto) Eos # (Auto) Baso # (Auto) Neutrophils % (Manual) Lymphocytes % (Manual) Monocytes % (Manual) Eosinophils % (Manual) Toxic Granulation Platelet Estimate Hypochromasia (manual) Anisocytosis (manual) Ovalocytes PT 17.3 H INR 1.5 H APTT 43.5 H pO2 VBG pH VBG pCO2 VBG HCO3 VBG Total CO2 VBG O2 Sat (Calc) VBG Base Excess VBG Potassium Sodium Chloride Glucose Lactate FiO2 Potassium Carbon Dioxide Anion Gap BUN Creatinine Est GFR ( Amer) Est GFR (Non-Af Amer) Random Glucose Lactic Acid 1.6 Calcium Total Bilirubin AST ALT Alkaline Phosphatase Ammonia Total Protein Albumin Globulin Albumin/Globulin Ratio Lipase Venous Blood Potassium Urine Color Urine Clarity Urine pH Ur Specific [place] Urine Protein Urine Glucose (UA) Urine Ketones Urine Blood Urine Nitrate Urine Bilirubin Urine Urobilinogen Ur Leukocyte Esterase Urine RBC (Auto) Urine Microscopic WBC Urine Bacteria Urine Opiates Screen Urine Methadone Screen Ur Barbiturates Screen Ur Phencyclidine Scrn Ur Amphetamines Screen U Benzodiazepines Scrn U Oth Cocaine Metabols U Cannabinoids Screen Alcohol, Quantitative Blood Type O POSITIVE Antibody Screen Negative BBK History Checked Patient has bt 11/14/17 11/14/17 11/14/17 17:00 17:30 17:31 WBC RBC Hgb Hct MCV MCH MCHC RDW Plt Count MPV Neut % (Auto) Lymph % (Auto) [place] % (Auto) Eos % (Auto) Baso % (Auto) Neut # (Auto) Lymph # (Auto) [place] # (Auto) Eos # (Auto) Baso # (Auto) Neutrophils % (Manual) Lymphocytes % (Manual) Monocytes % (Manual) Eosinophils % (Manual) Toxic Granulation Platelet Estimate Hypochromasia (manual) Anisocytosis (manual) Ovalocytes PT INR APTT pO2 VBG pH VBG pCO2 VBG HCO3 VBG Total CO2 VBG O2 Sat (Calc) VBG Base Excess VBG Potassium Sodium Chloride Glucose Lactate FiO2 Potassium Carbon Dioxide Anion Gap BUN Creatinine Est GFR ( Amer) Est GFR (Non-Af Amer) Random Glucose Lactic Acid Calcium Total Bilirubin AST ALT Alkaline Phosphatase Ammonia Total Protein Albumin Globulin Albumin/Globulin Ratio Lipase Venous Blood Potassium Urine Color Yellow Urine Clarity Slighty-cloudy Urine pH 6.0 Ur Specific [place] 1.019 Urine Protein Negative Urine Glucose (UA) Neg Urine Ketones Negative Urine Blood Negative Urine Nitrate Negative Urine Bilirubin Negative Urine Urobilinogen 4.0 Ur Leukocyte Esterase Neg Urine RBC (Auto) 3 Urine Microscopic WBC 1 Urine Bacteria Rare Urine Opiates Screen Negative Urine Methadone Screen Negative Ur Barbiturates Screen Negative Ur Phencyclidine Scrn Negative Ur Amphetamines Screen Negative U Benzodiazepines Scrn Positive U Oth Cocaine Metabols Negative U Cannabinoids Screen Negative Alcohol, Quantitative 49 H Blood Type Antibody Screen BBK History Checked 11/15/17 11/15/17 11/15/17 04:30 04:30 09:14 WBC 3.0 L RBC 2.79 L Hgb 8.0 L Hct 24.2 L MCV 86.9 MCH 28.6 MCHC 33.0 RDW 20.2 H Plt Count 91 L MPV 7.3 Neut % (Auto) 57.5 Lymph % (Auto) 24.6 [place] % (Auto) 12.4 H Eos % (Auto) 4.5 H Baso % (Auto) 1.0 Neut # (Auto) 1.7 L Lymph # (Auto) 0.7 L [place] # (Auto) 0.4 Eos # (Auto) 0.1 Baso # (Auto) 0.0 Neutrophils % (Manual) Lymphocytes % (Manual) Monocytes % (Manual) Eosinophils % (Manual) Toxic Granulation Platelet Estimate Hypochromasia (manual) Anisocytosis (manual) Ovalocytes PT INR APTT pO2 VBG pH VBG pCO2 VBG HCO3 VBG Total CO2 VBG O2 Sat (Calc) VBG Base Excess VBG Potassium Sodium 140 Chloride 108 H Glucose Lactate FiO2 Potassium 3.7 Carbon Dioxide 21 L Anion Gap 15 BUN 14 Creatinine 0.6 L Est GFR ( Amer) > 60 Est GFR (Non-Af Amer) > 60 Random Glucose 90 Lactic Acid Calcium 7.4 L Total Bilirubin 2.3 H AST 71 H D ALT 46 Alkaline Phosphatase 120 Ammonia 50 Total Protein 6.3 Albumin 2.4 L Globulin 3.9 Albumin/Globulin Ratio 0.6 L Lipase 396 H Venous Blood Potassium Urine Color Urine Clarity Urine pH Ur Specific [place] Urine Protein Urine Glucose (UA) Urine Ketones Urine Blood Urine Nitrate Urine Bilirubin Urine Urobilinogen Ur Leukocyte Esterase Urine RBC (Auto) Urine Microscopic WBC Urine Bacteria Urine Opiates Screen Urine Methadone Screen Ur Barbiturates Screen Ur Phencyclidine Scrn Ur Amphetamines Screen U Benzodiazepines Scrn U Oth Cocaine Metabols U Cannabinoids Screen Alcohol, Quantitative Blood Type Antibody Screen BBK History Checked Attending/Attestation - Attestation I have personally seen and examined this patient.: Yes I have fully participated in the care of the patient.: Yes I have reviewed all pertinent clinical information: Yes Notes (Text): 11/15/17 10:16 I have seen and examined patient with GI fellow. Agree with above documentation with the following additions. In brief this is a 52 year old male with history of ETOH decompensated cirrhosis s/p TIPS, seizures secondary to ETOH withdrawal who presents to hospital with complaint of multiple episodes of hematemesis which occurred yesterday. He endorses 4 episodes which happened after consumption of vodka/iced tea yesterday. He denies associated abdominal pain, nausea, fever/chills, melena, or rectal bleeding. No recurrent episodes of vomiting since arrival to hospital, he is tolerating PO liquids without difficulty. Review of vitals from today are normal. ETOH decompensated cirrhosis s/p TIPS - admission MELD 12 DF 25, not candidate for steroid therapy, also patient with previous documented medication non-compliance Hematemesis in setting of ongoing ETOH abuse - Liquid diet as tolerated - Continue to monitor H/H, currently no indication for transfusion - Continue with PPI therapy - ETOH cessation counseling - Monitor for signs of ETOH withdrawal given prior seizure history - Patient requires additional outpatient follow up with Dr. Bradley, will continue to monitor patient clinical course
--- NOTE | 2017-11-15 08:34 | RAD ---
HISTORY: COMPARISON: 11/02/2017. TECHNIQUE: Chest PA and lateral FINDINGS: LINES AND TUBES: None. LUNG AND PLEURA: The lungs are well inflated and clear. No pleural effusion or pneumothorax. HEART AND MEDIASTINUM: The heart is not enlarged. The hilar and mediastinal contours are within normal limits. SKELETAL STRUCTURES: The bony structures are within normal limits for the patient's age. VISUALIZED UPPER ABDOMEN: Normal. OTHER FINDINGS: None. IMPRESSION: No active pulmonary disease.
--- NOTE | 2017-11-15 09:52 | RAD ---
PROCEDURE: Radiographs of the chest and abdomen (obstructive series) HISTORY: hematemesis/gi bleed; weakness COMPARISON: No prior. TECHNIQUE: AP radiograph of the chest, with upright and supine radiographs of the abdomen. FINDINGS: Bowel: The bowel gas pattern is nonspecific. No evidence of mechanical obstruction. Free air: None. Bones: Unremarkable. Other findings: A stent graft is seen in the right upper quadrant. IMPRESSION: Nonobstructive bowel-gas pattern. No free intraperitoneal air.
[2017-11-15 14:21] LABS: HEMOGLOBIN 7.8 g/dL (12.0-18.0)
--- NOTE | 2017-11-15 15:47 | CP.PCM.PN ---
Subjective - Date & Time of Evaluation Date of Evaluation: 11/15/17 Time of Evaluation: 08:20 - Subjective Subjective: 52 y/o M seen and examined by bedside. Pt reports no more vomiting or bloody stools episodes. Pt states feeling very hungry, no chest pain, no SOB, nio abdominal pain, no acid reflux, urinary complains or paresthesias. Objective - Vital Signs/Intake and Output Vital Signs (last 24 hours): Temp Pulse Resp BP Pulse Ox 98.3 F 65 20 122/69 97 11/15/17 11:50 11/15/17 11:50 11/15/17 11:50 11/15/17 11:50 11/15/17 11:50 - Medications Medications: Current Medications Acetaminophen (Tylenol 325mg Tab) 650 mg PO Q6 PRN PRN Reason: Pain, Mild (1-3) Acetaminophen (Tylenol 325mg Tab) 650 mg PO Q6 PRN PRN Reason: Fever >100.4 F Last Admin: 11/14/17 20:47 Dose: 650 mg Ceftriaxone Sodium 1 gm/ (Sodium Chloride) 100 mls @ 100 mls/hr IVPB DAILY [facility] PRN Reason: Protocol Last Admin: 11/15/17 09:09 Dose: 100 mls/hr Levetiracetam (Keppra) 500 mg PO Q12H [facility] Last Admin: 11/15/17 11:17 Dose: 500 mg Lorazepam (Ativan) 1 mg IVP Q6H PRN PRN Reason: Agitation Last Admin: 11/14/17 20:42 Dose: 1 mg Morphine Sulfate (Morphine) 2 mg IVP Q4 PRN PRN Reason: Pain, severe (8-10) Ondansetron HCl (Zofran Inj) 4 mg IVP Q6 PRN PRN Reason: Nausea/Vomiting Pantoprazole Sodium (Protonix Inj) 40 mg IVP DAILY [facility] Last Admin: 11/15/17 09:08 Dose: 40 mg - Labs Labs: 11/15/17 14:01 11/15/17 04:30 PT 17.3 Seconds (9.8-13.1) H 11/14/17 15:11 INR 1.5 (0.9-1.2) H 11/14/17 15:11 APTT 43.5 Seconds (25.6-37.1) H 11/14/17 15:11 - Constitutional Appears: No Acute Distress - Head Exam Head Exam: NORMAL INSPECTION, NORMOCEPHALIC - Eye Exam Eye Exam: EOMI, Normal appearance - ENT Exam ENT Exam: Mucous Membranes Moist - Neck Exam Neck Exam: Full ROM - Respiratory Exam Respiratory Exam: Clear to Ausculation Bilateral, NORMAL BREATHING PATTERN - Cardiovascular Exam Cardiovascular Exam: +S1, +S2 - GI/Abdominal Exam GI & Abdominal Exam: Soft, Normal Bowel Sounds. absent: Guarding, Tenderness - Neurological Exam Neurological Exam: Alert, Awake, Oriented x3 - Psychiatric Exam Psychiatric exam: Normal Mood Assessment and Plan - Assessment and Plan (Free Text) Assessment: 52 yo male pmxh seizures, ETOH use disorder, Hepatic encephalopathy, Alcohol Liver Cirrhosis with TIPs procedure admitted for GI bleeding. >EGD - 10/15/2017 - clean based Esophageal ulcer, retained food >Colonoscopy - 06/2017 - Poor prep, internal/external hemorrhoids >EGD - 04/2017 - LA Grade C esophagitis with visible vessel at EGJ s/p clip and injection of epi, portal hypertensive gastropathy GI Bleeding -Stable, no more hematemesis or hematochezia episodes. -secondary to ETOH cirrhosis vs esophageal ulcer -Liquid diet -C/W Patoprazole daily -GI recommendations appreciated. -Ceftriaxone 1 g daily for SBP prophylaxis. -PO Ciprofloxacin for 7 days upon discharge. -F/U Blood Cx and UCx. ETOH cirrhosis -S/p TIPS (2014) -Alcohol cessation reinforced. -Ceftriaxone 1 g daily for SBP prophylaxis. -PO Ciprofloxacin for 7 days upon discharge. Anemia, microcytic -secondary to GI bleeding and chronic disease (Etoh cirrhosis) -Hgb trending down: 9.0 -> 8.0 -> 7.8 since last night. -F/U CBC tomorrow morning. Hx of Seizures -may be 2/2 ETOH withdrawal -C/w Keppra IV 500 mg BID -Ativan 1 mg IV Q6h PRN -CIWA score 0 DVT Prophylaxis -SCD. Active bleeding
[2017-11-16 00:13] VITALS: RESP 18; O2SAT 97
[2017-11-16 04:47] VITALS: BP 131/66; PULSE 90; TEMP 98.2
[2017-11-16 05:42] LABS: HEMOGLOBIN 7.9 g/dL (12.0-18.0); MEAN CELL VOLUME 86.6 fl (80.0-94.0); MEAN CORPUSCULAR HEMOGLOBIN 28.5 pg (27.0-31.0); RBC 2.78 Mil/uL (4.40-5.90); RED CELL DISTRIBUTION WIDTH 20.2 % (11.5-14.5); WHITE BLOOD COUNT 2.6 K/uL (4.8-10.8)
--- NOTE | 2017-11-16 07:33 | CP.PCM.PN ---
<MikaelshahidAbelino - Last Filed: 11/16/17 07:41> Subjective - Date & Time of Evaluation Date of Evaluation: 11/16/17 Time of Evaluation: 06:35 - Subjective Subjective: PGY5 GI Fellow Progress Note Patient seen and examined bedside this morning. The patient states that he is feeling well today and is eager to be discharged. He denies any further episodes of nausea/vomiting/hematemesis/hemtochezia. No pain, fever, chills at present. 12 system ROS performed and negative except where stated. Objective - Vital Signs/Intake and Output Vital Signs (last 24 hours): Temp Pulse Resp BP Pulse Ox 98.2 F 90 18 131/66 97 11/16/17 04:47 11/16/17 04:47 11/16/17 04:47 11/16/17 04:47 11/16/17 04:47 - Medications Medications: Current Medications Acetaminophen (Tylenol 325mg Tab) 650 mg PO Q6 PRN PRN Reason: Pain, Mild (1-3) Last Admin: 11/16/17 05:06 Dose: 650 mg Acetaminophen (Tylenol 325mg Tab) 650 mg PO Q6 PRN PRN Reason: Fever >100.4 F Last Admin: 11/14/17 20:47 Dose: 650 mg Ceftriaxone Sodium 1 gm/ (Sodium Chloride) 100 mls @ 100 mls/hr IVPB DAILY [facility] PRN Reason: Protocol Last Admin: 11/15/17 09:09 Dose: 100 mls/hr Levetiracetam (Keppra) 500 mg PO Q12H [facility] Last Admin: 11/15/17 21:52 Dose: 500 mg Lorazepam (Ativan) 1 mg IVP Q6H PRN PRN Reason: Agitation Last Admin: 11/16/17 05:07 Dose: 1 mg Morphine Sulfate (Morphine) 2 mg IVP Q4 PRN PRN Reason: Pain, severe (8-10) Nicotine (Nicoderm Cq) 1 patch TD DAILY [facility] Last Admin: 11/15/17 21:45 Dose: 1 patch Ondansetron HCl (Zofran Inj) 4 mg IVP Q6 PRN PRN Reason: Nausea/Vomiting Pantoprazole Sodium (Protonix Inj) 40 mg IVP DAILY [facility] Last Admin: 11/15/17 09:08 Dose: 40 mg - Labs Labs: 11/16/17 05:25 11/15/17 04:30 PT 17.3 Seconds (9.8-13.1) H 11/14/17 15:11 INR 1.5 (0.9-1.2) H 11/14/17 15:11 APTT 43.5 Seconds (25.6-37.1) H 11/14/17 15:11 - Constitutional Appears: Non-toxic, No Acute Distress - Eye Exam Eye Exam: EOMI, PERRL - ENT Exam ENT Exam: Mucous Membranes Moist - Respiratory Exam Respiratory Exam: Clear to Ausculation Bilateral. absent: Rales, Rhonchi, Wheezes - Cardiovascular Exam Cardiovascular Exam: RRR, +S1, +S2 - GI/Abdominal Exam GI & Abdominal Exam: Soft, Normal Bowel Sounds. absent: Distended, Firm, Guarding, Rigid, Tenderness, Organomegaly - Extremities Exam Extremities Exam: Normal Inspection. absent: Pedal Edema - Neurological Exam Neurological Exam: Alert, Awake, Oriented x3 - Psychiatric Exam Psychiatric exam: Normal Affect, Normal Mood - Skin Skin Exam: Dry, Warm Assessment and Plan - Assessment and Plan (Free Text) Assessment: Patient is a 52yo male with PMHx significant for decompensated EtOH cirrhosis s/ p TIPS (2014), esophagitis and recently noted esophageal ulcer (October 15, 2017) , EtOH withdrawal seizures who presented to the ED with complaint of hematemesis and hematochezia -Decompensated EtOH cirrhosis s/p TIPS -EtOH abuse/intoxication -Large internal/external hemorrhoids -Anemia/thrombocytopenia as a result of ongoing EtOH use and cirrhosis -Homelessness Plan: -Continue to encourage EtOH cessation and adherence to outpatient therapies and follow up -Protonix 40mg PO QAMAC -Anusol-HC to be applied externally -Diet as tolerated -No overt bleeding noted since admission -OK for D/C today, outpt follow up <Kali Berry - Last Filed: 11/16/17 07:48> Objective - Vital Signs/Intake and Output Vital Signs (last 24 hours): Temp Pulse Resp BP Pulse Ox 98.2 F 90 18 131/66 97 11/16/17 04:47 11/16/17 04:47 11/16/17 04:47 11/16/17 04:47 11/16/17 04:47 - Medications Medications: Current Medications Acetaminophen (Tylenol 325mg Tab) 650 mg PO Q6 PRN PRN Reason: Pain, Mild (1-3) Last Admin: 11/16/17 05:06 Dose: 650 mg Acetaminophen (Tylenol 325mg Tab) 650 mg PO Q6 PRN PRN Reason: Fever >100.4 F Last Admin: 11/14/17 20:47 Dose: 650 mg Ceftriaxone Sodium 1 gm/ (Sodium Chloride) 100 mls @ 100 mls/hr IVPB DAILY [facility] PRN Reason: Protocol Last Admin: 11/15/17 09:09 Dose: 100 mls/hr Levetiracetam (Keppra) 500 mg PO Q12H [facility] Last Admin: 11/15/17 21:52 Dose: 500 mg Lorazepam (Ativan) 1 mg IVP Q6H PRN PRN Reason: Agitation Last Admin: 11/16/17 05:07 Dose: 1 mg Morphine Sulfate (Morphine) 2 mg IVP Q4 PRN PRN Reason: Pain, severe (8-10) Nicotine (Nicoderm Cq) 1 patch TD DAILY [facility] Last Admin: 11/15/17 21:45 Dose: 1 patch Ondansetron HCl (Zofran Inj) 4 mg IVP Q6 PRN PRN Reason: Nausea/Vomiting Pantoprazole Sodium (Protonix Inj) 40 mg IVP DAILY [facility] Last Admin: 11/15/17 09:08 Dose: 40 mg - Labs Labs: 11/16/17 05:25 11/15/17 04:30 PT 17.3 Seconds (9.8-13.1) H 11/14/17 15:11 INR 1.5 (0.9-1.2) H 11/14/17 15:11 APTT 43.5 Seconds (25.6-37.1) H 11/14/17 15:11 Attending/Attestation - Attestation I have personally seen and examined this patient.: Yes I have fully participated in the care of the patient.: Yes I have reviewed all pertinent clinical information, including history, physical exam and plan: Yes Notes (Text): 11/16/17 07:46 52 year old male with h/o etoh abuse, etoh cirrhosis s/p tips admitted with anemia. No bleeding .Hgb at baseline. Ok for discharge. Will sign off.
--- NOTE | 2017-11-16 08:20 | CP.PCM.DIS ---
Provider - Provider Date of Admission: 11/14/17 16:10 Attending physician: Chanelle Rowe MD Primary care physician: Dr Saldana at [facility]. Consults: [facility] [address] Time Spent in preparation of Discharge (in minutes): 25 Diagnosis - Discharge Diagnosis (1) Gastrointestinal hemorrhage Status: Acute Comment: -Controlled with IV fluids and pantoprazole, did not need endoscopy during this admission. -Needs to f/u with Dr Bradley, GI specialist, within 1 week. Hospital Course - Lab Results Lab Results: Micro Results 11/15/17 00:12 Blood Blood Culture - Preliminary NO GROWTH AFTER 24 HOURS Most Recent Lab Values WBC 2.6 K/uL (4.8-10.8) L 11/16/17 05:25 RBC 2.78 Mil/uL (4.40-5.90) L 11/16/17 05:25 Hgb 7.9 g/dL (12.0-18.0) L 11/16/17 05:25 Hct 24.1 % (35.0-51.0) L 11/16/17 05:25 MCV 86.6 fl (80.0-94.0) 11/16/17 05:25 MCH 28.5 pg (27.0-31.0) 11/16/17 05:25 MCHC 33.0 g/dL (33.0-37.0) 11/16/17 05:25 RDW 20.2 % (11.5-14.5) H 11/16/17 05:25 Plt Count 91 K/uL (130-400) L 11/16/17 05:25 MPV 7.3 fl (7.2-11.7) 11/15/17 04:30 Neut % (Auto) 57.5 % (50.0-75.0) 11/15/17 04:30 Lymph % (Auto) 24.6 % (20.0-40.0) 11/15/17 04:30 [place] % (Auto) 12.4 % (0.0-10.0) H 11/15/17 04:30 Eos % (Auto) 4.5 % (0.0-4.0) H 11/15/17 04:30 Baso % (Auto) 1.0 % (0.0-2.0) 11/15/17 04:30 Neut # (Auto) 1.7 K/uL (1.8-7.0) L 11/15/17 04:30 Lymph # (Auto) 0.7 K/uL (1.0-4.3) L 11/15/17 04:30 [place] # (Auto) 0.4 K/uL (0.0-0.8) 11/15/17 04:30 Eos # (Auto) 0.1 K/uL (0.0-0.7) 11/15/17 04:30 Baso # (Auto) 0.0 K/uL (0.0-0.2) 11/15/17 04:30 Neutrophils % (Manual) 78 % (42-75) H 11/14/17 15:11 Lymphocytes % (Manual) 10 % (20-50) L 11/14/17 15:11 Monocytes % (Manual) 11 % (0-10) H 11/14/17 15:11 Eosinophils % (Manual) 1 % (0-7) 11/14/17 15:11 Toxic Granulation Present 11/14/17 15:11 Platelet Estimate Decreased (NORMAL) L 11/14/17 15:11 Hypochromasia (manual) Moderate 11/14/17 15:11 Anisocytosis (manual) Moderate 11/14/17 15:11 Ovalocytes Slight 11/14/17 15:11 PT 17.3 Seconds (9.8-13.1) H 11/14/17 15:11 INR 1.5 (0.9-1.2) H 11/14/17 15:11 APTT 43.5 Seconds (25.6-37.1) H 11/14/17 15:11 pO2 22 mm/Hg (30-55) L 11/14/17 15:07 VBG pH 7.41 (7.32-7.43) 11/14/17 15:07 VBG pCO2 45 mmHg (40-60) 11/14/17 15:07 VBG HCO3 25.8 mmol/L 11/14/17 15:07 VBG Total CO2 29.9 mmol/L (22-28) H 11/14/17 15:07 VBG O2 Sat (Calc) 34.2 % (40-65) L 11/14/17 15:07 VBG Base Excess 3.2 mmol/L (0.0-2.0) H 11/14/17 15:07 VBG Potassium 4.0 mmol/L (3.6-5.2) 11/14/17 15:07 Sodium 141.0 mmol/L (132-148) 11/14/17 15:07 Chloride 106.0 mmol/L (98-107) 11/14/17 15:07 Glucose 118 mg/dL (75-110) H 11/14/17 15:07 Lactate 1.8 mmol/L (0.7-2.1) 11/14/17 15:07 FiO2 21.0 % 11/14/17 15:07 Sodium 140 mmol/l (132-148) 11/15/17 04:30 Potassium 3.7 MMOL/L (3.6-5.0) 11/15/17 04:30 Chloride 108 mmol/L (98-107) H 11/15/17 04:30 Carbon Dioxide 21 mmol/L (22-30) L 11/15/17 04:30 Anion Gap 15 (10-20) 11/15/17 04:30 BUN 14 mg/dl (9-20) 11/15/17 04:30 Creatinine 0.6 mg/dl (0.8-1.5) L 11/15/17 04:30 Est GFR ( Amer) > 60 11/15/17 04:30 Est GFR (Non-Af Amer) > 60 11/15/17 04:30 Random Glucose 90 mg/dL (75-110) 11/15/17 04:30 Lactic Acid 1.6 MMOL/L (0.7-2.1) 11/14/17 15:11 Calcium 7.4 mg/dL (8.4-10.2) L 11/15/17 04:30 Total Bilirubin 2.3 mg/dl (0.2-1.3) H 11/15/17 04:30 AST 71 U/L (17-59) H D 11/15/17 04:30 ALT 46 U/L (21-72) 11/15/17 04:30 Alkaline Phosphatase 120 U/L (38-126) 11/15/17 04:30 Ammonia 50 umo/L (16-60) 11/15/17 09:14 Total Protein 6.3 G/DL (6.3-8.2) 11/15/17 04:30 Albumin 2.4 g/dL (3.5-5.0) L 11/15/17 04:30 Globulin 3.9 gm/dL (2.2-3.9) 11/15/17 04:30 Albumin/Globulin Ratio 0.6 (1.0-2.1) L 11/15/17 04:30 Lipase 396 U/L (23-300) H 11/15/17 04:30 Venous Blood Potassium 4.0 mmol/L (3.6-5.2) 11/14/17 15:07 Urine Color Yellow (YELLOW) 11/14/17 17:00 Urine Clarity Slighty-cloudy (Clear) 11/14/17 17:00 Urine pH 6.0 (5.0-8.0) 11/14/17 17:00 Ur Specific [place] 1.019 (1.003-1.030) 11/14/17 17:00 Urine Protein Negative mg/dL (NEGATIVE) 11/14/17 17:00 Urine Glucose (UA) Neg mg/dL (Normal) 11/14/17 17:00 Urine Ketones Negative mg/dL (NEGATIVE) 11/14/17 17:00 Urine Blood Negative (NEGATIVE) 11/14/17 17:00 Urine Nitrate Negative (NEGATIVE) 11/14/17 17:00 Urine Bilirubin Negative (NEGATIVE) 11/14/17 17:00 Urine Urobilinogen 4.0 mg/dL (0.2-1.0) 11/14/17 17:00 Ur Leukocyte Esterase Neg [place]/uL (Negative) 11/14/17 17:00 Urine RBC (Auto) 3 /hpf (0-3) 11/14/17 17:00 Urine Microscopic WBC 1 /hpf (0-5) 11/14/17 17:00 Urine Bacteria Rare (<OCC) 11/14/17 17:00 Urine Opiates Screen Negative (NEGATIVE) 11/14/17 17:31 Urine Methadone Screen Negative (NEGATIVE) 11/14/17 17:31 Ur Barbiturates Screen Negative (NEGATIVE) 11/14/17 17:31 Ur Phencyclidine Scrn Negative (NEGATIVE) 11/14/17 17:31 Ur Amphetamines Screen Negative (NEGATIVE) 11/14/17 17:31 U Benzodiazepines Scrn Positive (NEGATIVE) 11/14/17 17:31 U Oth Cocaine Metabols Negative (NEGATIVE) 11/14/17 17:31 U Cannabinoids Screen Negative (NEGATIVE) 11/14/17 17:31 Alcohol, Quantitative 49 mg/dl (0-10) H 11/14/17 17:30 Blood Type O POSITIVE 11/14/17 15:11 Antibody Screen Negative 11/14/17 15:11 BBK History Checked Patient has bt 11/14/17 15:11 - Hospital Course Hospital Course: 52 y/o M with a PMHx of seizures, Hepatic encephalopathy and Alcohol Liver Cirrhosis admitted for upper and lower GI bleeding. Abdominal X ray showed NO obstructive bowel-gas pattern. Pt received Pantoprazole, 2 doses of daily IV Ceftriaxone and pain mangement. Pt w/ no episodes of hematemesis or hematochexia during hospitalization. Pt remained hemodinamycally stable and very eager to leave early today. Pt discharged home and instructed to complete 7 days of PO Ciprofloxacin. GI team Ok to discharge early this morning. - Date & Time of H&P Date of H&P: 11/14/17 Time of H&P: 16:29 Discharge Exam - Head Exam Head Exam: NORMAL INSPECTION, NORMOCEPHALIC Discharge Plan - Follow Up Plan Condition: STABLE Disposition: HOME/ ROUTINE Instructions: Gastrointestinal Bleeding (DC), Gastrointestinal Bleeding (GEN), Weakness (ED) Additional Instructions: -Please f/u with GI, Dr Sawant within 1 week. -Continue home meds. Avoid alcohol, caffeinated drinks, spicy food.
--- NOTE | 2017-11-16 09:14 | CARD ---
APPROVED REPORT EKG Measurement Heart [id number] <Conclusion> Normal sinus rhythm Cannot rule out Anterior infarct, age undetermined Abnormal ECG
== END 2017-11-16 08:15 | disposition home or self-care (01) ==
LOC: H.ER 14:03 → H.ERHOLD 16:10 → H.TEL 18:52
PROVIDERS: ADMIT Family Medicine Geriatric Medicine; ATTEND Family Medicine Geriatric Medicine
DX: K92.2 Gastrointestinal hemorrhage, unspecified (principal); D69.59 Other secondary thrombocytopenia; F17.210 Nicotine dependence, cigarettes, uncomplicated; K22.10 Ulcer of esophagus without bleeding; K29.70 Gastritis, unspecified, without bleeding; K64.8 Other hemorrhoids; K70.30 Alcoholic cirrhosis of liver without ascites; Z59.0 Homelessness; D50.0 Iron deficiency anemia secondary to blood loss (chronic); D63.8 Anemia in other chronic diseases classified elsewhere; K76.6 Portal hypertension; K31.89 Other diseases of stomach and duodenum; Z91.14 Patient's other noncompliance with medication regimen; Z91.19 Patient's noncompliance with other medical treatment and regimen; Z86.718 Personal history of other venous thrombosis and embolism; G89.29 Other chronic pain; K20.9 Esophagitis, unspecified; Z88.6 Allergy status to analgesic agent
CPT/HCPCS: 36415; 71046; 74022; 80053; 80320; 80324; 80345; 80346; 80349; 80353; 80358; 80361; 81003; 82140; 82803; 83605; 83690; 83992; 85014; 85018; 85025; 85027; 85610; 85730; 86850; 86900; 87040; 87086; 93005; 96361; 96365; 96366; 96367; 96375; 96376; 99284; C9113; G0378; J0696; J1953; J2060; J2765; J7030

== ENCOUNTER 2017-11-16 13:30 | Emergency (ER) | payer MEDICAID ==
[2017-11-16 14:09] VITALS: BP 102/69; PULSE 105; RESP 18; TEMP 98; O2SAT 99
[2017-11-16 20:19] LABS: BLOOD UREA NITROGEN 13 mg/dl (9-20); CALCIUM 8.5 mg/dL (8.4-10.2); GFR AFRICAN-AMERICAN > 60; GFR NON-AFRICAN AMERICAN > 60
[2017-11-16 20:25] LABS: BASO % 1.3 % (0.0-2.0); EOS # 0.1 K/uL (0.0-0.7); EOS % 2.2 % (0.0-4.0); HEMOGLOBIN 7.8 g/dL (12.0-18.0); LYMPH # 0.8 K/uL (1.0-4.3); LYMPH % 22.3 % (20.0-40.0); MEAN CELL VOLUME 87.3 fl (80.0-94.0); MEAN CORPUSCULAR HEMOGLOBIN 28.5 pg (27.0-31.0); MEAN CORPUSCULAR HGB CONC 32.6 g/dL (33.0-37.0); MEAN PLATELET VOLUME 7.5 fl (7.2-11.7); MONO # 0.6 K/uL (0.0-0.8); MONO % 16.9 % (0.0-10.0); NEUT # 2.1 K/uL (1.8-7.0); NEUT % 57.3 % (50.0-75.0); NRBC % 0.2 % (0.0-0.0); RBC 2.72 Mil/uL (4.40-5.90); RED CELL DISTRIBUTION WIDTH 20.9 % (11.5-14.5); WHITE BLOOD COUNT 3.7 K/uL (4.8-10.8)
--- NOTE | 2017-11-16 21:44 | ED PDOC ---
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 States sutures placed 5 days ago to L forehead. Denies recent seizure, hematemesis, syncope or current abd pain. Past Medical History Vital Signs: Last Vital Signs Temp 98.0 F 11/16/17 14:06 Pulse 105 H 11/16/17 14:06 Resp 18 11/16/17 14:06 BP 102/69 11/16/17 14:06 Pulse Ox 99 11/16/17 14:06 - Medical History PMH: Anemia, Anxiety, Back Problems (herniated disc), Deep Vein Thrombosis, Fractures (rib fx, left shoulder, Left hand 5th digit, Humerus fracture), Gastritis, Seizures, Chronic Pain (left shoulder) Denies: Chronic Kidney Disease - Surgical History Surgical History: Endoscopy - Family History Family History: States: Unknown Family Hx - Immunization History Hx Tetanus Toxoid Vaccination: Yes Hx Influenza Vaccination: No Hx Pneumococcal Vaccination: No - Home Medications Home Medications: Ambulatory Orders Medication Instructions Recorded levETIRAcetam [Keppra] 500 mg PO Q12H 10/25/17 Omeprazole Magnesium [Prilosec Otc] 40 mg PO BID 11/14/17 Ciprofloxacin [Cipro] 500 mg PO BID #14 tab 11/16/17 LORazepam [Ativan] 1 mg IVP Q6H PRN vial 11/16/17 - Allergies Allergies/Adverse Reactions: Allergies Allergy/AdvReac Type Severity Reaction Status Date / Time aspirin Allergy NAUSEA Verified 11/14/17 14:21 ibuprofen [From Motrin] Allergy NAUSEA Verified 11/14/17 14:21 naproxen Allergy RASH Verified 11/14/17 14:21 NSAIDS (Non-Steroidal Allergy NAUSEA Verified 11/14/17 14:21 Anti-Inflamma - Laboratory Results Result Diagrams: 11/16/17 20:03 11/16/17 20:03 - ECG O2 Sat by Pulse Oximetry: 99 Disposition - Clinical Impression Clinical Impression: Weakness, Anemia, Visit for suture removal - Disposition Referrals: [facility] [Outside] Condition: STABLE Instructions: Weakness (ED), Anemia Caused by Low Iron, Adult (DC) Forms: [employer] (Macedonian)
== END 2017-11-16 21:48 | disposition home or self-care (01) ==
LOC: H.ER 13:30
DX: R53.1 Weakness (principal); D64.9 Anemia, unspecified; G89.29 Other chronic pain; Z86.718 Personal history of other venous thrombosis and embolism; Z48.02 Encounter for removal of sutures; Z88.6 Allergy status to analgesic agent

== ENCOUNTER 2017-11-17 18:26 | Emergency (ER) | payer OTHER, MEDICAID ==
[2017-11-17 18:31] VITALS: TEMP 98.1
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
[2017-11-17 23:36] VITALS: BP 118/73; PULSE 85; RESP 20; O2SAT 100
--- NOTE | 2017-11-18 07:54 | RAD ---
HISTORY: dyspnea COMPARISON: Chest radiographs 11/14/2017. TECHNIQUE: Chest PA and lateral FINDINGS: LUNGS: Diminished inspiratory volume. Crowding of the bilateral bronchovascular markings seen slightly greater the left and right sides with no definitive interval alveolitis appreciated. PLEURA: No significant pleural effusion identified. No pneumothorax apparent. CARDIOVASCULAR: Normal. OSSEOUS STRUCTURES: No significant abnormalities. VISUALIZED UPPER ABDOMEN: Normal. OTHER FINDINGS: None. IMPRESSION: Diminished inspiratory volume. No definite acute infiltrate although crowding of bronchovascular markings identified in the bilateral bases. Noted interval cardiovascular pathology appreciable radiographically.
--- NOTE | 2017-11-18 07:55 | RAD ---
PROCEDURE: Right Femur Radiographs. HISTORY: pain COMPARISON: None. TECHNIQUE: AP and Lateral Radiographs of the right femur. FINDINGS: FEMUR: No acute fracture or destructive bony lesion identified. SOFT TISSUES: Normal. OTHER FINDINGS: None. IMPRESSION: Unremarkable radiographs of the right femur.
== END 2017-11-17 23:45 | disposition home or self-care (01) ==
LOC: H.ER 18:26
DX: S09.90XA Unspecified injury of head, initial encounter (principal); S89.91XA Unspecified injury of right lower leg, initial encounter; V03.10XA Pedestrian on foot injured in collision with car, pick-up truck or van in traffic accident, initial encounter; Y92.410 Unspecified street and highway as the place of occurrence of the external cause; F41.9 Anxiety disorder, unspecified; G89.29 Other chronic pain; Z86.718 Personal history of other venous thrombosis and embolism; Z88.6 Allergy status to analgesic agent

== ENCOUNTER 2017-11-18 17:22 | Emergency (ER) | payer MEDICAID ==
[2017-11-18 17:33] VITALS: RESP 18; O2SAT 98
[2017-11-18] MEDS ORDERED: Sodium Chloride 0.9% 1,000 ML IV STA (18:01)
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
--- NOTE | 2017-11-18 18:55 | CT ---
PROCEDURE: CT HEAD WITHOUT CONTRAST. HISTORY: Headache, possible seizure COMPARISON: November 17, 2017. TECHNIQUE: Axial computed tomography images were obtained through the head/brain without intravenous contrast. Coronal and sagittal reconstructed images. Radiation dose: Total exam DLP = 189.19 mGy-cm. This CT exam was performed using one or more of the following dose reduction techniques: Automated exposure control, adjustment of the mA and/or kV according to patient size, and/or use of iterative reconstruction technique. FINDINGS: HEMORRHAGE: No intracranial hemorrhage. BRAIN: No mass effect or edema. Cortical and cerebellar atrophy, periventricular small vessel disease. VENTRICLES: Unremarkable. No hydrocephalus. CALVARIUM: Unremarkable. PARANASAL SINUSES: Air-fluid level right maxillary sinus consistent with acute sinusitis. Chronic changes identified in the left maxillary sinus. MASTOID AIR CELLS: Unremarkable as visualized. No inflammatory changes. OTHER FINDINGS: None. IMPRESSION: No acute intracranial abnormalities. No significant findings to account for the clinical presentation. No significant interval change compared to the prior examination(s).
[2017-11-18 19:06] LABS: EOS # 0.1 K/uL (0.0-0.7); EOS % 1.5 % (0.0-4.0); HEMOGLOBIN 7.5 g/dL (12.0-18.0); LYMPH # 0.6 K/uL (1.0-4.3); LYMPH % 13.9 % (20.0-40.0); MEAN CELL VOLUME 86.2 fl (80.0-94.0); MEAN CORPUSCULAR HGB CONC 32.5 g/dL (33.0-37.0); MEAN PLATELET VOLUME 7.3 fl (7.2-11.7); MONO # 0.4 K/uL (0.0-0.8); MONO % 9.9 % (0.0-10.0); NEUT % 73.7 % (50.0-75.0); NRBC % 0.1 % (0.0-0.0); RBC 2.66 Mil/uL (4.40-5.90); RED CELL DISTRIBUTION WIDTH 21.5 % (11.5-14.5); WHITE BLOOD COUNT 4.1 K/uL (4.8-10.8)
[2017-11-18 19:26] LABS: INR 1.6 (0.9-1.2); PARTIAL THROMBOPLASTIN TIME 36.1 Seconds (25.6-37.1); PROTHROMBIN TIME 17.5 Seconds (9.8-13.1)
[2017-11-18 19:31] LABS: BLOOD UREA NITROGEN 14 mg/dl (9-20); CALCIUM 7.6 mg/dL (8.4-10.2); GFR AFRICAN-AMERICAN > 60; GFR NON-AFRICAN AMERICAN > 60
[2017-11-19 00:17] VITALS: BP 130/74; PULSE 98; TEMP 98.2
--- NOTE | 2017-11-19 10:34 | CARD ---
APPROVED REPORT EKG Measurement Heart [id number] TN [id number] [id number] <Conclusion> Sinus tachycardia Otherwise normal ECG
== END 2017-11-19 00:17 | disposition home or self-care (01) ==
LOC: H.ER 17:22
DX: S09.90XA Unspecified injury of head, initial encounter (principal); W19.XXXA Unspecified fall, initial encounter; Y92.89 Other specified places as the place of occurrence of the external cause; F17.200 Nicotine dependence, unspecified, uncomplicated; F41.9 Anxiety disorder, unspecified; G89.29 Other chronic pain; Z86.718 Personal history of other venous thrombosis and embolism; Z88.6 Allergy status to analgesic agent
CPT/HCPCS: 70450; 80048; 80320; 82948; 84484; 85025; 85610; 85730; 93005; 99285; J7030

== ENCOUNTER 2017-11-19 19:11 | Emergency (ER) | payer MEDICAID ==
[2017-11-19] MEDS ORDERED: Sodium Chloride 0.9% 1,000 ML IV STA (19:44)
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
[2017-11-19 20:31] LABS: BASO # 0.1 K/uL (0.0-0.2); BASO % 1.7 % (0.0-2.0); EOS # 0.1 K/uL (0.0-0.7); EOS % 2.9 % (0.0-4.0); HEMOGLOBIN 7.5 g/dL (12.0-18.0); LYMPH # 0.7 K/uL (1.0-4.3); LYMPH % 22.4 % (20.0-40.0); MEAN CELL VOLUME 85.4 fl (80.0-94.0); MEAN CORPUSCULAR HEMOGLOBIN 28.8 pg (27.0-31.0); MEAN CORPUSCULAR HGB CONC 33.8 g/dL (33.0-37.0); MONO # 0.2 K/uL (0.0-0.8); MONO % 6.5 % (0.0-10.0); NEUT # 2.2 K/uL (1.8-7.0); NEUT % 66.5 % (50.0-75.0); RBC 2.58 Mil/uL (4.40-5.90); RED CELL DISTRIBUTION WIDTH 21.3 % (11.5-14.5); WHITE BLOOD COUNT 3.3 K/uL (4.8-10.8)
[2017-11-19] MEDS ORDERED: levETIRAcetam 1,000 MG in Sodium Chloride 0.9% 100 ML IVPB ONE (20:35)
[2017-11-19 20:37] LABS: CALCIUM 7.9 mg/dL (8.4-10.2); GFR AFRICAN-AMERICAN > 60; GFR NON-AFRICAN AMERICAN > 60
[2017-11-19 20:40] LABS: BLOOD UREA NITROGEN 14 mg/dl (9-20)
[2017-11-19 21:17] VITALS: TEMP 98.1
[2017-11-19 21:19] VITALS: RESP 18
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
--- NOTE | 2017-11-19 22:10 | RAD ---
HISTORY: fever, cough COMPARISON: Comparison is made with 11/17/2017 FINDINGS: LUNGS: Opacity is noted at the left lung base and left retrocardiac region may represent atelectasis or pneumonia. PLEURA: No significant pleural effusion identified, no pneumothorax apparent. CARDIOVASCULAR: Normal. OSSEOUS STRUCTURES: No significant abnormalities. VISUALIZED UPPER ABDOMEN: Normal. OTHER FINDINGS: None. IMPRESSION: Left lung base opacity may represent pneumonia or atelectasis.
[2017-11-19 23:40] VITALS: O2SAT 97
[2017-11-20 00:05] VITALS: BP 120/69; PULSE 74
== END 2017-11-20 00:19 | disposition home or self-care (01) ==
LOC: H.ER 19:11
DX: G40.909 Epilepsy, unspecified, not intractable, without status epilepticus (principal); S09.90XA Unspecified injury of head, initial encounter; W19.XXXA Unspecified fall, initial encounter; Y92.89 Other specified places as the place of occurrence of the external cause; R50.9 Fever, unspecified; F41.9 Anxiety disorder, unspecified; G89.29 Other chronic pain; I73.9 Peripheral vascular disease, unspecified; Z86.718 Personal history of other venous thrombosis and embolism; Z88.6 Allergy status to analgesic agent
CPT/HCPCS: 70450; 71045; 80048; 80177; 80320; 83605; 85025; 87804; 96361; 96365; 96375; 99285; C9113; J1953; J7030

== ENCOUNTER 2017-11-20 14:12 | Emergency (ER) | payer MEDICAID ==
[2017-11-20 14:31] VITALS: RESP 16; TEMP 98
[2017-11-20 16:44] LABS: BASO % 0.2 % (0.0-2.0); EOS # 0.2 K/uL (0.0-0.7); EOS % 2.7 % (0.0-4.0); LYMPH # 0.5 K/uL (1.0-4.3); LYMPH % 7.6 % (20.0-40.0); MEAN CELL VOLUME 87.3 fl (80.0-94.0); MEAN CORPUSCULAR HEMOGLOBIN 27.9 pg (27.0-31.0); MEAN CORPUSCULAR HGB CONC 31.9 g/dL (33.0-37.0); MEAN PLATELET VOLUME 7.5 fl (7.2-11.7); MONO # 0.5 K/uL (0.0-0.8); MONO % 7.6 % (0.0-10.0); NEUT # 5.3 K/uL (1.8-7.0); NEUT % 81.9 % (50.0-75.0); PLATELET COUNT 85 K/uL (130-400); RBC 3.23 Mil/uL (4.40-5.90); RED CELL DISTRIBUTION WIDTH 21.1 % (11.5-14.5)
[2017-11-20 16:51] LABS: WHITE BLOOD COUNT 6.5 K/uL (4.8-10.8)
[2017-11-20 16:55] LABS: INR 1.6 (0.9-1.2); PARTIAL THROMBOPLASTIN TIME 38.3 Seconds (25.6-37.1); PROTHROMBIN TIME 18.4 Seconds (9.8-13.1)
[2017-11-20 17:04] LABS: ALB/GLOB RATIO 0.7 (1.0-2.1); ALT/SGPT 44 U/L (21-72); AST/SGOT 86 U/L (17-59); BLOOD UREA NITROGEN 15 mg/dl (9-20); CALCIUM 7.8 mg/dL (8.4-10.2); GFR AFRICAN-AMERICAN > 60; GFR NON-AFRICAN AMERICAN > 60; LIPASE 191 U/L (23-300)
--- NOTE | 2017-11-20 17:21 | RAD ---
PROCEDURE: Radiographs of the chest and abdomen (obstructive series) HISTORY: constipation COMPARISON: Comparison is made to the previous study dated 11/14/2017 TECHNIQUE: AP radiograph of the chest, with upright and supine radiographs of the abdomen. FINDINGS: CHEST: Lungs: Clear. Cardiovascular: Normal size heart. No pulmonary vascular congestion. Pleura: No pleural fluid. No pneumothorax. Other findings: None. ABDOMEN AND PELVIS: Bowel: Unremarkable bowel gas pattern. No evidence of mechanical obstruction. Free air: None. Bones: Unremarkable. Other findings: There is a stent at the right upper abdomen likely represent TIPS. IMPRESSION: No evidence of acute pulmonary disease. No evidence of high-grade bowel obstruction.
[2017-11-20 17:42] LABS: BANDS 2 % (0-2); EOSINOPHIL 1 % (0-7); LYMPHOCYTE 5 % (20-50); MONOCYTE 2 % (0-10); NEUTROPHIL 90 % (42-75); TOTAL CELLS COUNTED 100
[2017-11-20 17:45] LABS: ANISOCYTOSIS MODERATE; OVALOCYTES SLIGHT; POIKILOCYTOSIS MODERATE; TARGET CELLS SLIGHT; TEARDROP CELLS SLIGHT
[2017-11-20 17:46] LABS: HYPOCHROMIC MODERATE; ROULEAUX FORMATION MODERATE
[2017-11-20 17:49] LABS: PLATELET ESTIMATE DECREASED (NORMAL)
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
[2017-11-20 18:54] VITALS: BP 114/78; PULSE 100
[2017-11-20 22:03] VITALS: O2SAT 96
== END 2017-11-20 18:30 | disposition home or self-care (01) ==
LOC: H.ER 14:12
DX: R10.9 Unspecified abdominal pain (principal); F10.129 Alcohol abuse with intoxication, unspecified; Z59.0 Homelessness; F17.200 Nicotine dependence, unspecified, uncomplicated; G89.29 Other chronic pain; K59.00 Constipation, unspecified; Z88.6 Allergy status to analgesic agent; Z86.718 Personal history of other venous thrombosis and embolism
CPT/HCPCS: 74022; 80053; 80320; 83690; 83735; 84100; 85025; 85610; 85730; 96374; 99284; J2405

== ENCOUNTER 2017-11-22 20:46 | Emergency (ER) | payer MEDICAID ==
[2017-11-22 20:47] VITALS: BMI 24.4
[2017-11-22 20:49] VITALS: O2SAT 97
[2017-11-22] MEDS ORDERED: Sodium Chloride 0.9% 1,000 ML IV STA (21:06)
[2017-11-22] MEDS ORDERED: levETIRAcetam 500 MG in Sodium Chloride 0.9% 100 ML IVPB ONE (21:06)
[2017-11-22 21:27] LABS: BASO # 0.1 K/uL (0.0-0.2); BASO % 2.1 % (0.0-2.0); EOS # 0.5 K/uL (0.0-0.7); HEMOGLOBIN 9.1 g/dL (12.0-18.0); LYMPH # 1.2 K/uL (1.0-4.3); MEAN CELL VOLUME 86.2 fl (80.0-94.0); MEAN CORPUSCULAR HEMOGLOBIN 28.1 pg (27.0-31.0); MEAN CORPUSCULAR HGB CONC 32.6 g/dL (33.0-37.0); MONO # 0.6 K/uL (0.0-0.8); MONO % 9.5 % (0.0-10.0); NEUT # 4.1 K/uL (1.8-7.0); NEUT % 63.4 % (50.0-75.0); RBC 3.23 Mil/uL (4.40-5.90); RED CELL DISTRIBUTION WIDTH 21.6 % (11.5-14.5); WHITE BLOOD COUNT 6.5 K/uL (4.8-10.8)
--- NOTE | 2017-11-22 21:33 | ED PDOC ---
HPI: Psych/Substance Abuse Time Seen by Provider: 11/22/17 21:04 Chief Complaint (Nursing): Alcohol Ingestion Chief Complaint (Provider): intoxication ED Caveat: Intoxicated Additional Complaint(s): found somewhat altered and lethargic. possible alcohol intoxication. Known well to ER for alcoholism and seizure and outpatient noncompliance and homelessness Past Medical History Reviewed: Historical Data, Nursing Documentation, Vital Signs Vital Signs: Last Vital Signs Temp 98.9 F 11/22/17 20:48 Pulse 108 H 11/22/17 20:48 Resp 16 11/22/17 20:48 BP 114/73 11/22/17 20:48 Pulse Ox 97 11/22/17 20:48 - Medical History PMH: Anemia, Anxiety, Back Problems (herniated disc), Deep Vein Thrombosis, Fractures (rib fx, left shoulder, Left hand 5th digit, Humerus fracture), Gastritis, Seizures (? due to alcohol withdrawal), Chronic Pain (left shoulder) Denies: Chronic Kidney Disease Other PMH: History obtained from previous charts - Surgical History Surgical History: Endoscopy - Family History Family History: States: Unknown Family Hx - Immunization History Hx Tetanus Toxoid Vaccination: Yes Hx Influenza Vaccination: Yes Hx Pneumococcal Vaccination: Yes - Home Medications Home Medications: Ambulatory Orders Medication Instructions Recorded levETIRAcetam [Keppra] 500 mg PO Q12H 10/25/17 Folic Acid 1 mg PO DAILY #30 tab 11/25/17 Omeprazole Magnesium [Prilosec Otc] 40 mg PO BID #60 tablet. 11/25/17 Thiamine [Vitamin B1 Tab] 100 mg PO DAILY #30 tab 11/25/17 - Allergies Allergies/Adverse Reactions: Allergies Allergy/AdvReac Type Severity Reaction Status Date / Time aspirin Allergy NAUSEA Verified 11/20/17 21:39 ibuprofen [From Motrin] Allergy NAUSEA Verified 11/20/17 21:39 naproxen Allergy RASH Verified 11/20/17 21:39 NSAIDS (Non-Steroidal Allergy NAUSEA Verified 11/20/17 21:39 Anti-Inflamma Review of Systems Review Of Systems: ROS cannot be obtained secondary to pt's inabilty to answer questions. Physical Exam - Reviewed Nursing Documentation Reviewed: Yes Vital Signs Reviewed: Yes - Physical Exam Appears: Positive for: No Acute Distress (dissheveled) Head Exam: Positive for: ATRAUMATIC, NORMOCEPHALIC Skin: Positive for: Warm, Dry, Pallor Eye Exam: Positive for: EOMI, PERRL, Conjunctival injection ENT: Positive for: Pharynx Is (clear) Neck: Positive for: Painless ROM, Supple Cardiovascular/Chest: Positive for: Regular Rate, Rhythm. Negative for: Murmur Respiratory: Positive for: Normal Breath Sounds. Negative for: Wheezing Gastrointestinal/Abdominal: Positive for: Soft. Negative for: Tenderness Back: Positive for: Normal Inspection. Negative for: Decreased ROM Extremity: Positive for: Normal ROM. Negative for: Deformity Lymphatic: Negative for: Adenopathy Neurologic/Psych: Positive for: Oriented (1), Gait (unsteady), Other (Slurred speech). Negative for: Alert, Motor/Sensory Deficits - Laboratory Results Result Diagrams: 11/22/17 21:23 11/22/17 21:23 - ECG O2 Sat by Pulse Oximetry: 97 Disposition - Clinical Impression Clinical Impression: Seizure - Patient ED Disposition Is Patient to be Admitted: Transfer of Care - Disposition Referrals: Enid Saldana MD [Primary Care Provider] - Disposition: Transfer of Care Disposition Time: 00:00 Condition: STABLE Patient Signed Over To: Olaf Fernandez Handoff Comments: pending reevaluation
[2017-11-22 21:49] LABS: BLOOD UREA NITROGEN 17 mg/dl (9-20)
[2017-11-22 21:50] LABS: ALB/GLOB RATIO 0.7 (1.0-2.1); ALT/SGPT 44 U/L (21-72); AST/SGOT 94 U/L (17-59); CALCIUM 8.1 mg/dL (8.4-10.2); GFR AFRICAN-AMERICAN > 60; GFR NON-AFRICAN AMERICAN > 60; LIPASE 251 U/L (23-300)
--- NOTE | 2017-11-23 00:25 | ED PDOC ---
- Laboratory Results Result Diagrams: 11/22/17 21:23 11/22/17 21:23 - ECG O2 Sat by Pulse Oximetry: 97 Medical Decision Making Medical Decision Makin:00 Patient endorsed to me by Dr. Morillo pending reevaluation. 04:40 Patient remained seizure free for duration of ED visit. Patient stable for discharge. Scribe Attestation: Documented by Emmanuel Mcgarry, acting as a scribe for Olaf Fernandez MD. Provider Scribe Attestation: All medical record entries made by the Scribe were at my direction and personally dictated by me. I have reviewed the chart and agree that the record accurately reflects my personal performance of the history, physical exam, medical decision making, and the department course for this patient. I have also personally directed, reviewed, and agree with the discharge instructions and disposition. Disposition Counseled Patient/Family Regarding: Studies Performed, Diagnosis, Need For Followup - Clinical Impression Clinical Impression: Seizure - POA Present On Arrival: None - Disposition Referrals: Enid Saldana MD [Primary Care Provider] - Disposition: Routine/Home Disposition Time: 04:40 Condition: STABLE Instructions: Seizures Forms: [facility] ([place])
[2017-11-23 05:27] VITALS: BP 115/60; PULSE 77; RESP 18
[2017-11-23 05:57] VITALS: TEMP 98.7
== END 2017-11-23 06:10 | disposition home or self-care (01) ==
LOC: H.ER 20:46
DX: R56.9 Unspecified convulsions (principal); Z86.718 Personal history of other venous thrombosis and embolism; G89.29 Other chronic pain; Z59.0 Homelessness; Z87.19 Personal history of other diseases of the digestive system; Z88.6 Allergy status to analgesic agent; Z91.19 Patient's noncompliance with other medical treatment and regimen
CPT/HCPCS: 80053; 80320; 82550; 83605; 83690; 83735; 84100; 85025; 96361; 96365; 99283; J1953; J7030

== ENCOUNTER 2017-11-23 12:23 | Emergency (ER) | payer MEDICAID ==
[2017-11-23 12:23] VITALS: BMI 24.4
--- NOTE | 2017-11-23 12:36 | ED PDOC ---
HPI: Psych/Substance Abuse Time Seen by Provider: 11/23/17 12:33 Chief Complaint (Nursing): Alcohol Ingestion Chief Complaint (Provider): Alcohol Ingestion History Per: EMS History/Exam Limitations: intoxication Current Symptoms Are (Timing): Still Present Additional Complaint(s): 52 year old male presents to the emergency department via EMS after patient was found on the street possibly intoxicated. Patient admits to taking one shot of liquor and hitting the back of his head although he is uncertain on how he hit his head. Patient is well known to the emergency department. Denies any further medical complaints. PMD: Dr. Matt Moreno MD Past Medical History Reviewed: Historical Data, Nursing Documentation, Vital Signs Vital Signs: Last Vital Signs Temp 99.2 F 11/23/17 12:25 Pulse 97 H 11/23/17 12:25 Resp 19 11/23/17 12:25 BP 129/74 11/23/17 12:25 Pulse Ox 97 11/23/17 12:25 - Medical History PMH: Anemia, Anxiety, Back Problems (herniated disc), Deep Vein Thrombosis, Fractures (rib fx, left shoulder, Left hand 5th digit, Humerus fracture), Gastritis, Seizures (? due to alcohol withdrawal), Chronic Pain (left shoulder) Denies: Chronic Kidney Disease - Surgical History Surgical History: Endoscopy - Family History Family History: States: Unknown Family Hx - Social History Current smoker - smoking cessation education provided: Yes (Light Smoker < 10 Cigarettes Daily ) Ex-Smoker (has not smoked in the last 12 months): No Alcohol: > 2 Drinks/Day Drugs: Denies - Immunization History Hx Tetanus Toxoid Vaccination: Yes Hx Influenza Vaccination: Yes Hx Pneumococcal Vaccination: Yes - Home Medications Home Medications: Ambulatory Orders Medication Instructions Recorded levETIRAcetam [Keppra] 500 mg PO Q12H 10/25/17 Omeprazole Magnesium [Prilosec Otc] 40 mg PO BID 11/14/17 LORazepam [Ativan] 1 mg IVP Q6H PRN vial 11/16/17 Polyethylene Glycol 3350 [Miralax] 17 gm PO DAILY PRN #1 bottle 11/20/17 No Known Home Med 11/21/17 - Allergies Allergies/Adverse Reactions: Allergies Allergy/AdvReac Type Severity Reaction Status Date / Time aspirin Allergy NAUSEA Verified 11/20/17 21:39 ibuprofen [From Motrin] Allergy NAUSEA Verified 11/20/17 21:39 naproxen Allergy RASH Verified 11/20/17 21:39 NSAIDS (Non-Steroidal Allergy NAUSEA Verified 11/20/17 21:39 Anti-Inflamma Review of Systems Review Of Systems: ROS cannot be obtained secondary to pt's inabilty to answer questions. (Limited due to intoxication) Constitutional: Positive for: Other (Head injury) Physical Exam - Reviewed Nursing Documentation Reviewed: Yes Vital Signs Reviewed: Yes - Physical Exam Appears: Positive for: Well, No Acute Distress Head Exam: Positive for: ATRAUMATIC (Left occipital scalp with minimal swelling) Skin: Positive for: Normal Color, Warm, Dry Eye Exam: Positive for: Normal appearance, EOMI ENT: Positive for: Normal ENT Inspection. Negative for: Pharyngeal Erythema Neck: Positive for: Normal, Supple. Negative for: Pain On Movement Of Neck (No cervical tenderness) Cardiovascular/Chest: Positive for: Regular Rate, Rhythm, Chest Non Tender. Negative for: Murmur Respiratory: Positive for: Normal Breath Sounds. Negative for: Accessory Muscle Use, Wheezing, Respiratory Distress Gastrointestinal/Abdominal: Positive for: Normal Exam, Soft. Negative for: Tenderness Back: Positive for: Normal Inspection. Negative for: L CVA Tenderness, R CVA Tenderness, Vertebral Tenderness Extremity: Positive for: Normal ROM. Negative for: Pedal Edema, Deformity, Swelling Neurologic/Psych: Positive for: Alert, Oriented, Other (Slurred speech with alcohol noted on breath. ) - ECG O2 Sat by Pulse Oximetry: 97 (RA) Pulse Ox Interpretation: Normal - Progress ED Course And Treament: 1500 On re-evaluation, pt. eating food and in no distress. Medical Decision Making Medical Decision Making: Time: 1253 Initial impression: Public intoxication Initial plan: Alcohol serum AccuCheck Head CT Cervical Spine CT Reevaluation Time: 1310 Alcohol, quantitative: 92 (High) Time: 1314 AccuCheck: [address] Salazar who agrees with care. Time: [address] FINDINGS: HEMORRHAGE: No intracranial hemorrhage. BRAIN: No mass effect or edema. Mild atrophy. Mild chronic microvascular ischemic changes. VENTRICLES: Mildly prominent. No hydrocephalus. CALVARIUM: Unremarkable. PARANASAL SINUSES: Leftward nasal septal deviation. Maxillary sinus disease. MASTOID AIR CELLS: Trace dependent left mastoid air cell opacification. OTHER FINDINGS: High left parietal scalp swelling. IMPRESSION: High left parietal scalp swelling without acute intracranial pathology. Sinus disease as described above. Time: [address] FINDINGS: VERTEBRAE: Heterogeneous attenuation. No fracture. Normal alignment. 1-2 mm anterior subluxation of C4 on C5. 3 mm anterior subluxation of C5 on C6. No destructive bony lesion. DISCS/SPINAL CANAL/NEURAL FORAMINA: No significant central canal or neural foraminal stenosis. Multilevel disc space narrowing, worst at C6-7. PARASPINAL SOFT TISSUES: Unremarkable. OTHER FINDINGS: Biapical subpleural emphysematous. Atherosclerotic arterial calcifications. IMPRESSION: No acute fracture. Stable mild anterior subluxations of C4 on C5 and of C5 on C6. Multilevel degenerative changes. Scribe Attestation: Documented by Kiley Manning, acting as a scribe for Lincoln Olivier PA-C. Provider Scribe Attestation: All medical record entries made by the Scribe were at my direction and personally dictated by me. I have reviewed the chart and agree that the record accurately reflects my personal performance of the history, physical exam, medical decision making, and the department course for this patient. I have also personally directed, reviewed, and agree with the discharge instructions and disposition. Disposition - Clinical Impression Clinical Impression: Alcohol intoxication, Head injury - Disposition Referrals: [facility] [Outside] Condition: STABLE Instructions: Closed Head Injury (DC), Alcohol Abuse and Alcoholism (DC) Forms: [facility] (Hungarian)
--- NOTE | 2017-11-23 13:57 | CT ---
PROCEDURE: CT HEAD WITHOUT CONTRAST. HISTORY: trauma COMPARISON: CT head dated 11/19/2017. TECHNIQUE: Axial computed tomography images were obtained through the head/brain without intravenous contrast. Radiation dose: Total exam DLP = 856.2 mGy-cm. This CT exam was performed using one or more of the following dose reduction techniques: Automated exposure control, adjustment of the mA and/or kV according to patient size, and/or use of iterative reconstruction technique. FINDINGS: HEMORRHAGE: No intracranial hemorrhage. BRAIN: No mass effect or edema. Mild atrophy. Mild chronic microvascular ischemic changes. VENTRICLES: Mildly prominent. No hydrocephalus. CALVARIUM: Unremarkable. PARANASAL SINUSES: Leftward nasal septal deviation. Maxillary sinus disease. MASTOID AIR CELLS: Trace dependent left mastoid air cell opacification. OTHER FINDINGS: High left parietal scalp swelling. IMPRESSION: High left parietal scalp swelling without acute intracranial pathology. Sinus disease as described above.
--- NOTE | 2017-11-23 14:08 | CT ---
PROCEDURE: CT Cervical Spine without contrast HISTORY: trauma COMPARISON: CT cervical spine dated 11/17/2017. TECHNIQUE: Axial computed tomography images were obtained of the cervical spine without the use of intravenous contrast. Coronal and sagittal reformatted images were created and reviewed. Radiation dose: Total exam DLP = 497.6 mGy-cm. This CT exam was performed using one or more of the following dose reduction techniques: Automated exposure control, adjustment of the mA and/or kV according to patient size, and/or use of iterative reconstruction technique. FINDINGS: VERTEBRAE: Heterogeneous attenuation. No fracture. Normal alignment. 1-2 mm anterior subluxation of C4 on C5. 3 mm anterior subluxation of C5 on C6. No destructive bony lesion. DISCS/SPINAL CANAL/NEURAL FORAMINA: No significant central canal or neural foraminal stenosis. Multilevel disc space narrowing, worst at C6-7. PARASPINAL SOFT TISSUES: Unremarkable. OTHER FINDINGS: Biapical subpleural emphysematous. Atherosclerotic arterial calcifications. IMPRESSION: No acute fracture. Stable mild anterior subluxations of C4 on C5 and of C5 on C6. Multilevel degenerative changes.
[2017-11-23 15:17] VITALS: RESP 16; TEMP 98.4
[2017-11-23 18:15] VITALS: BP 132/78; PULSE 76; O2SAT 98
== END 2017-11-23 18:15 | disposition home or self-care (01) ==
LOC: H.ER 12:23
DX: F10.129 Alcohol abuse with intoxication, unspecified (principal); S09.90XA Unspecified injury of head, initial encounter; W19.XXXA Unspecified fall, initial encounter; Y92.89 Other specified places as the place of occurrence of the external cause; F17.210 Nicotine dependence, cigarettes, uncomplicated; G89.29 Other chronic pain; J32.9 Chronic sinusitis, unspecified; Z86.718 Personal history of other venous thrombosis and embolism; Z87.19 Personal history of other diseases of the digestive system; Z88.6 Allergy status to analgesic agent

== ENCOUNTER 2017-11-23 21:17 | Inpatient (IN) | payer MEDICAID ==
[2017-11-23 21:17] VITALS: BMI 24.4
--- NOTE | 2017-11-23 21:41 | ED PDOC ---
HPI: Psych/Substance Abuse Time Seen by Provider: 11/23/17 21:27 Chief Complaint (Nursing): Alcohol Ingestion Chief Complaint (Provider): Alcohol Ingestion History Per: Patient History/Exam Limitations: no limitations Additional Complaint(s): 52 year old male presents to the emergency department via Police department for the second time today after patient was found outside sleeping possibly intoxicated. Patient is well known to the emergency department. Denies any further medical complaints. Patient is requesting pudding. Past Medical History Reviewed: Historical Data, Nursing Documentation, Vital Signs Vital Signs: Last Vital Signs Temp 98.1 F 11/23/17 21: Pulse 103 H 11/23/17 21:22 Resp 18 11/23/17 21:22 BP 105/40 L 11/23/17 21: Pulse Ox 95 11/23/17 21:22 - Medical History PMH: Anemia, Anxiety, Back Problems (herniated disc), Deep Vein Thrombosis, Fractures (rib fx, left shoulder, Left hand 5th digit, Humerus fracture), Gastritis, Seizures (? due to alcohol withdrawal), Chronic Pain (left shoulder) Denies: Chronic Kidney Disease - Surgical History Surgical History: Endoscopy - Family History Family History: States: Unknown Family Hx - Social History Current smoker - smoking cessation education provided: Yes Alcohol: > 2 Drinks/Day Drugs: Denies - Immunization History Hx Tetanus Toxoid Vaccination: Yes Hx Influenza Vaccination: Yes Hx Pneumococcal Vaccination: Yes - Home Medications Home Medications: Ambulatory Orders Medication Instructions Recorded levETIRAcetam [Keppra] 500 mg PO Q12H 10/25/17 Omeprazole Magnesium [Prilosec Otc] 40 mg PO BID 11/14/17 LORazepam [Ativan] 1 mg IVP Q6H PRN vial 11/16/17 Polyethylene Glycol 3350 [Miralax] 17 gm PO DAILY PRN #1 bottle 11/20/17 No Known Home Med 11/21/17 - Allergies Allergies/Adverse Reactions: Allergies Allergy/AdvReac Type Severity Reaction Status Date / Time aspirin Allergy NAUSEA Verified 11/20/17 21:39 ibuprofen [From Motrin] Allergy NAUSEA Verified 11/20/17 21:39 naproxen Allergy RASH Verified 11/20/17 21:39 NSAIDS (Non-Steroidal Allergy NAUSEA Verified 11/20/17 21:39 Anti-Inflamma Review of Systems Review Of Systems: ROS cannot be obtained secondary to pt's inabilty to answer questions. (Currently intoxicated) Physical Exam - Reviewed Nursing Documentation Reviewed: Yes Vital Signs Reviewed: Yes - Physical Exam Appears: Positive for: Non-toxic, No Acute Distress Head Exam: Positive for: ATRAUMATIC, NORMAL INSPECTION, NORMOCEPHALIC Skin: Positive for: Normal Color, Warm, Dry Eye Exam: Positive for: Normal appearance, EOMI ENT: Positive for: Normal ENT Inspection. Negative for: Nasal Congestion Neck: Positive for: Normal, Painless ROM Cardiovascular/Chest: Positive for: Regular Rate, Rhythm. Negative for: Murmur Respiratory: Positive for: Normal Breath Sounds. Negative for: Accessory Muscle Use, Wheezing, Respiratory Distress Gastrointestinal/Abdominal: Positive for: Normal Exam, Soft. 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 Negative for: Black Stool, Blood Streaked Stool Extremity: Positive for: Normal ROM. Negative for: Pedal Edema Neurologic/Psych: Positive for: Alert, Oriented, Other (Slurred speech with alcohol on breath. ) - Laboratory Results Result Diagrams: 11/23/17 22:40 11/23/17 22:40 - ECG ECG: Positive for: Interpreted By Me ECG Rhythm: Positive for: Sinus Rhythm. Negative for: ST/T Changes Rate: 93 O2 Sat by Pulse Oximetry: 95 (RA) Pulse Ox Interpretation: Normal Medical Decision Making Medical Decision Making: Time: 2127 Initial impression: Alcohol intoxication Initial plan: Type and screen Alcohol serum CMP CBC w/ diff PTT & Prothrombin AccuCheck Reevaluation 2330 HgB yesterday was 9.1 and today is 7.5. Pt. denies melena, hematochezia, BRBPR, hematemesis. Reports no known active bleeding. 2 units of blood, banana bag, protonix 80mg IV, kdur 40 mEq ordered. Case d/w Dr. Maloney who agrees with care. Case d/w Dr. Quinteros, FP resident, and arrangements made for admission. Scribe Attestation: Documented by Kiley Manning, acting as a scribe for Lincoln Olivier PA-C. Provider Scribe Attestation: All medical record entries made by the Scribe were at my direction and personally dictated by me. I have reviewed the chart and agree that the record accurately reflects my personal performance of the history, physical exam, medical decision making, and the department course for this patient. I have also personally directed, reviewed, and agree with the discharge instructions and disposition. Disposition - Clinical Impression Clinical Impression: Severe anemia, Hypokalemia, Alcoholism - Patient ED Disposition Is Patient to be Admitted: No - Disposition Referrals: Enid Saldana MD [Primary Care Provider] - Disposition Time: 23:30 Condition: FAIR - Pt Status Changed To: Hospital Disposition Of: Observation
[2017-11-23 22:52] LABS: BASO % 1.2 % (0.0-2.0); EOS # 0.1 K/uL (0.0-0.7); EOS % 4.5 % (0.0-4.0); HEMOGLOBIN 7.5 g/dL (12.0-18.0); LYMPH # 0.6 K/uL (1.0-4.3); LYMPH % 25.4 % (20.0-40.0); MEAN CELL VOLUME 85.9 fl (80.0-94.0); MEAN CORPUSCULAR HEMOGLOBIN 27.9 pg (27.0-31.0); MEAN CORPUSCULAR HGB CONC 32.5 g/dL (33.0-37.0); MEAN PLATELET VOLUME 6.6 fl (7.2-11.7); MONO # 0.3 K/uL (0.0-0.8); MONO % 11.6 % (0.0-10.0); NEUT # 1.4 K/uL (1.8-7.0); NEUT % 57.3 % (50.0-75.0); RBC 2.69 Mil/uL (4.40-5.90); RED CELL DISTRIBUTION WIDTH 20.9 % (11.5-14.5); WHITE BLOOD COUNT 2.4 K/uL (4.8-10.8)
[2017-11-23 23:01] LABS: INR 1.8 (0.9-1.2); PARTIAL THROMBOPLASTIN TIME 39.5 Seconds (25.6-37.1)
[2017-11-23 23:04] LABS: ALB/GLOB RATIO 0.7 (1.0-2.1); ALBUMIN 2.5 g/dL (3.5-5.0); ALT/SGPT 44 U/L (21-72); AST/SGOT 84 U/L (17-59); BLOOD UREA NITROGEN 11 mg/dl (9-20); CALCIUM 7.6 mg/dL (8.4-10.2); GFR AFRICAN-AMERICAN > 60; GFR NON-AFRICAN AMERICAN > 60
[2017-11-23] MEDS ORDERED: Potassium Chloride 20 mEq ER Tab PO STA (23:10)
[2017-11-23] MEDS ORDERED: Multivitamin (MVI) 10 ML, Thiamine 100 MG, Folic Acid 1 MG in Sodium Chloride 0.9% 1,00... IV ONE (23:10)
[2017-11-23] MEDS ORDERED: Potassium Chloride 20 mEq ER Tab PO ONE (23:47)
[2017-11-24 00:23] LABS: SQUAMOUS EPITHIAL < 1 /hpf (0-5); URINE BACTERIA OCC (<OCC); URINE BILIRUBIN NEGATIVE (NEGATIVE); URINE BLOOD NEGATIVE (NEGATIVE); URINE CLARITY SLIGHTY-CLOUDY (Clear); URINE COLOR YELLOW (YELLOW); URINE GLUCOSE (UA) NEG (Normal); URINE LEUKOCYTE ESTERASE NEG Leu/uL (Negative); URINE PROTEIN NEGATIVE (NEGATIVE)
--- NOTE | 2017-11-24 00:28 | CP.PCM.HP ---
History of Present Illness - History of Present Illness History of Present Illness: 52 yr old M brought in by police for alcohol intoxication and sleeping outside. Patient has daily visits to ED and labs yesterday showed H/H 9.1/27.8. CBC today showed H/H 7.5/23.1. Patient denies hematemesis, hematuria or hematochesis. Patient is a poor historian and does not answer questions appropriately. Medical hx includes: alcohol abuse, liver cirrhosis s/p TIPS ( 2104), alcohol withdrawal seizures, upper GI bleed on 09/24/17. Denies chest pain , weakness, dizziness, SOB, visual changes. Patient cannot keep eyes open to answer questions. PMD: VAC (last visit 09/27/17) PMHx: alcohol abuse (multiple ED visits), liver cirrhosis s/p TIPS (2104), alcohol withdrawal seizures, upper GI bleed on 09/24/17 SurgHx: TIPS (2014) FMHx: unknown SocHx: chronic alcohol abuse (cannot quantify), tobacco use 2-3 cig daily, denies drugs Medications: Keppra 500mg PO BID Allergies: aspirin, ibuporfen, naproxen NSAIDs ED course: BP 105/40 mmHg, HR 103, Temp 98.1 F, Resp 18, O2 sat 95% room air -EKG: NSR at 93 bpm, no significant ST-T changes -CBC: WBC 2.4, H/H 7.5/23.1, plts 71 -PT 20 ; PTT 39.5, INR 1.8 -CMP: Na 139, K+ 3.1, Cl 108, HCO3 21, AST 84/ALT 44 -serum alcohol 46 -urine drug screen positive for benzodiazepines -UA negative -FOBT, type and screen -ED treatment: 2 units leukocyte reduced pRBC's, banana bag (1L NS+ thiamine 100mg+ folic acid 1gm), Pantoprazole 80mg IV once, KCl 40Meq PO once Present on Admission - Present on Admission Any Indicators Present on Admission: No History of DVT/PE: No History of Uncontrolled Diabetes: No Urinary Catheter: No Decubitus Ulcer Present: No History Surgical Site Infection Following: None Review of Systems - Review of Systems Systems not reviewed;Unavailable: Intoxicated Past Patient History - Infectious Disease Hx of Infectious Diseases: None - Tetanus Immunizations Tetanus Immunization: Unknown - Past Medical History & Family History Past Medical History?: Yes - Past Social History Alcohol: > 2 Drinks/Day Drugs: Denies - NEUROLOGICAL Hx Seizures: Yes (? due to alcohol withdrawal) - HEENT Hx HEENT Problems: No - RENAL Hx Chronic Kidney Disease: No - ENDOCRINE/METABOLIC Hx Endocrine Disorders: No - HEMATOLOGICAL/ONCOLOGICAL Hx Anemia: Yes - INTEGUMENTARY Hx Dermatological Problems: Yes - MUSCULOSKELETAL/RHEUMATOLOGICAL Hx Fractures: Yes (rib fx, left shoulder, Left hand 5th digit, Humerus fracture) - GASTROINTESTINAL Hx Gastritis: Yes - PSYCHIATRIC Hx Anxiety: Yes - SURGICAL HISTORY Hx Surgeries: Yes Other/Comment: "LEFT FINGER SURGERY" - ANESTHESIA Hx Anesthesia: Yes Hx Anesthesia Reactions: No Meds Allergies/Adverse Reactions: Allergies Allergy/AdvReac Type Severity Reaction Status Date / Time aspirin Allergy NAUSEA Verified 11/20/17 21:39 ibuprofen [From Motrin] Allergy NAUSEA Verified 11/20/17 21:39 naproxen Allergy RASH Verified 11/20/17 21:39 NSAIDS (Non-Steroidal Allergy NAUSEA Verified 11/20/17 21:39 Anti-Inflamma Physical Exam - Constitutional Appears: No Acute Distress (intoxicated) - Head Exam Head Exam: NORMOCEPHALIC (multiple small abrasions on face) - Eye Exam Eye Exam: EOMI Pupil Exam: Miosis (bilateral) - ENT Exam ENT Exam: Mucous Membranes Moist - Neck Exam Neck exam: Positive for: Full Rom. Negative for: Lymphadenopathy - Respiratory Exam Respiratory Exam: NORMAL BREATHING PATTERN. absent: Rhonchi, Wheezes - Cardiovascular Exam Cardiovascular Exam: REGULAR RHYTHM, +S1, +S2 - GI/Abdominal Exam GI & Abdominal Exam: Normal Bowel Sounds, Soft. absent: Tenderness - Extremities Exam Extremities exam: Positive for: full ROM, pedal pulses present. Negative for: pedal edema, tenderness Additional comments: no tremors of extremities - Back Exam Back exam: absent: CVA tenderness (L), CVA tenderness (R) - Neurological Exam Neurological exam: Alert (intoxicated, CIWA score 0) - Skin Skin Exam: Dry, Warm Results - Vital Signs Recent Vital Signs: Last Vital Signs Temp 98.1 F 11/23/17 21:22 Pulse 93 H 11/23/17 23:59 Resp 18 11/23/17 21:22 BP 105/40 L 11/23/17 21:22 Pulse Ox 95 11/23/17 23:59 - Labs Result Diagrams: 11/23/17 22:40 11/23/17 22:40 Labs: Laboratory Results - last 24 hr 11/23/17 11/23/17 11/23/17 22:40 22:40 22:40 WBC 2.4 L D RBC 2.69 L Hgb 7.5 L Hct 23.1 L MCV 85.9 MCH 27.9 MCHC 32.5 L RDW 20.9 H Plt Count 71 L D MPV 6.6 L Neut % (Auto) 57.3 Lymph % (Auto) 25.4 [place] % (Auto) 11.6 H Eos % (Auto) 4.5 H Baso % (Auto) 1.2 Neut # (Auto) 1.4 L Lymph # (Auto) 0.6 L [place] # (Auto) 0.3 Eos # (Auto) 0.1 Baso # (Auto) 0.0 PT 20.0 H INR 1.8 H APTT 39.5 H Sodium 139 Potassium 3.1 L Chloride 108 H Carbon Dioxide 21 L Anion Gap 13 BUN 11 Creatinine 0.8 Est GFR ( Amer) > 60 Est GFR (Non-Af Amer) > 60 POC Glucose (mg/dL) Random Glucose 100 Calcium 7.6 L Total Bilirubin 2.4 H AST 84 H ALT 44 Alkaline Phosphatase 119 Total Protein 6.3 Albumin 2.5 L Globulin 3.8 Albumin/Globulin Ratio 0.7 L Urine Color Urine Clarity Urine pH Ur Specific [place] Urine Protein Urine Glucose (UA) Urine Ketones Urine Blood Urine Nitrate Urine Bilirubin Urine Urobilinogen Ur Leukocyte Esterase Urine RBC (Auto) Urine Microscopic WBC Ur Squamous Epith Cells Urine Bacteria Stool Occult Blood Alcohol, Quantitative 46 H Blood Type Antibody Screen BBK History Checked 11/23/17 11/23/17 11/23/17 22:40 23:04 23:50 WBC RBC Hgb Hct MCV MCH MCHC RDW Plt Count MPV Neut % (Auto) Lymph % (Auto) [place] % (Auto) Eos % (Auto) Baso % (Auto) Neut # (Auto) Lymph # (Auto) [place] # (Auto) Eos # (Auto) Baso # (Auto) PT INR APTT Sodium Potassium Chloride Carbon Dioxide Anion Gap BUN Creatinine Est GFR ( Amer) Est GFR (Non-Af Amer) POC Glucose (mg/dL) 115 H Random Glucose Calcium Total Bilirubin AST ALT Alkaline Phosphatase Total Protein Albumin Globulin Albumin/Globulin Ratio Urine Color Yellow Urine Clarity Slighty-cloudy Urine pH 6.0 Ur Specific [place] 1.006 Urine Protein Negative Urine Glucose (UA) Neg Urine Ketones Negative Urine Blood Negative Urine Nitrate Negative Urine Bilirubin Negative Urine Urobilinogen 4.0 Ur Leukocyte Esterase Neg Urine RBC (Auto) 1 Urine Microscopic WBC 4 Ur Squamous Epith Cells < 1 Urine Bacteria Occ H Stool Occult Blood Negative Alcohol, Quantitative Blood Type O POSITIVE Antibody Screen Negative BBK History Checked Patient has bt Assessment & Plan - Assessment and Plan (Free Text) Assessment: 52 yr old M admitted for acute on chronic anemia, hypokalemia and alcohol intoxication with hx liver cirrhosis and GI bleed (09/24/17). 1. Anemia -acute on chronic -H/H went from 9.1/22.8 yesterday to 7.5/23.1 today -2 units leukocyte reduced pRBC's transfused -admit to telemetry -f/u FOBT, CBC 2. Hypokalemia -K+ 3.1 -Potassium Chloride 40 Meq PO once given -f/u CMP -Potassium chloride 20 Meq PO daily 3. Thrombocytopenia -acute on chronic -likely secondary to liver cirrhosis -f/u CBC, FOBT 4. Alcohol abuse -chronic, hx alcohol withdrawal seizures -serum alcohol 46 -CIWA score 0 -ativan 1gm IV Q6 PRN alcohol withdrawal symptoms -Thiamine 100mg PO QD, Folic acid 1mg PO QD 5. DVT prophylaxis -SCD's for now given anemia and thrombocytopenia - Date & Time Date: 11/24/17 Time: 00:30
[2017-11-24 00:47] LABS: BARBITURATES, UR NEGATIVE (NEGATIVE); BENZODIAZEPINES, UR POSITIVE (NEGATIVE); OPIATES, UR NEGATIVE (NEGATIVE); PHENCYCLIDINE, UR NEGATIVE (NEGATIVE)
[2017-11-24] MEDS: Potassium Chloride 20 mEq ER Tab PO SCH (09:09)
[2017-11-24] MEDS ORDERED: Sodium Chloride 0.9% 1,000 ML IV SCH ×3 (10:30→11:49)
[2017-11-24 10:53] LABS: HEMOGLOBIN 9.1 g/dL (12.0-18.0); MEAN CELL VOLUME 85.3 fl (80.0-94.0); MEAN CORPUSCULAR HEMOGLOBIN 28.4 pg (27.0-31.0); MEAN CORPUSCULAR HGB CONC 33.4 g/dL (33.0-37.0); RBC 3.21 Mil/uL (4.40-5.90); RED CELL DISTRIBUTION WIDTH 20.6 % (11.5-14.5); WHITE BLOOD COUNT 3.7 K/uL (4.8-10.8)
[2017-11-24 11:05] LABS: ALB/GLOB RATIO 0.7 (1.0-2.1); ALBUMIN 2.8 g/dL (3.5-5.0); ALT/SGPT 46 U/L (21-72); AST/SGOT 91 U/L (17-59); BLOOD UREA NITROGEN 13 mg/dl (9-20); CALCIUM 8.1 mg/dL (8.4-10.2); GFR AFRICAN-AMERICAN > 60; GFR NON-AFRICAN AMERICAN > 60
[2017-11-24 12:38] LABS: URINE BACTERIA RARE (<OCC); URINE BILIRUBIN NEGATIVE (NEGATIVE); URINE BLOOD NEGATIVE (NEGATIVE); URINE CLARITY SLIGHTY-CLOUDY (Clear); URINE COLOR YELLOW (YELLOW); URINE GLUCOSE (UA) NEG (Normal); URINE LEUKOCYTE ESTERASE NEG Leu/uL (Negative); URINE PROTEIN NEGATIVE (NEGATIVE)
[2017-11-24] MEDS: Sodium Chloride 0.9% 1,000 ML IV SCH ×2 (14:50→22:00)
--- NOTE | 2017-11-24 16:20 | CARD ---
APPROVED REPORT EKG Measurement Heart [id number] <Conclusion> Normal sinus rhythm Possible Left atrial enlargement Prolonged QT Abnormal ECG
--- NOTE | 2017-11-25 04:15 | CP.PCM.PCO ---
Physician Communication Note - Physician Communication Note Physician Communication Note: paged by nurse to assess patient who fell on another patients bed Assessment/Plan - Assessment and Plan (Free Text) Assessment: Patient laying comfortably in bed, reports he "slipped" when he got up to go to the bathroom, denies injury or pain. Exam: no upper or lower extremity deformity or tenderness to palpation, full ROM , no evidence of injury Plan: P: no further intervention required at this time, urinal placed at bedside - Date & Time Date: 11/25/17 Time: 04:16
[2017-11-25] MEDS: Sodium Chloride 0.9% 1,000 ML IV SCH (06:36)
[2017-11-25 06:44] LABS: EOS # 0.2 K/uL (0.0-0.7); EOS % 4.2 % (0.0-4.0); HEMOGLOBIN 9.6 g/dL (12.0-18.0); LYMPH # 0.5 K/uL (1.0-4.3); LYMPH % 11.4 % (20.0-40.0); MEAN CELL VOLUME 85.8 fl (80.0-94.0); MEAN CORPUSCULAR HEMOGLOBIN 28.5 pg (27.0-31.0); MEAN CORPUSCULAR HGB CONC 33.2 g/dL (33.0-37.0); MEAN PLATELET VOLUME 7.1 fl (7.2-11.7); MONO # 0.4 K/uL (0.0-0.8); MONO % 9.1 % (0.0-10.0); NEUT # 3.3 K/uL (1.8-7.0); NEUT % 74.3 % (50.0-75.0); RBC 3.38 Mil/uL (4.40-5.90); RED CELL DISTRIBUTION WIDTH 20.2 % (11.5-14.5); WHITE BLOOD COUNT 4.5 K/uL (4.8-10.8)
[2017-11-25 07:20] LABS: ALB/GLOB RATIO 0.6 (1.0-2.1); ALBUMIN 2.5 g/dL (3.5-5.0); ALT/SGPT 44 U/L (21-72); AST/SGOT 76 U/L (17-59); BLOOD UREA NITROGEN 9 mg/dl (9-20); CALCIUM 7.8 mg/dL (8.4-10.2); GFR AFRICAN-AMERICAN > 60; GFR NON-AFRICAN AMERICAN > 60
[2017-11-25] MEDS: Potassium Chloride 20 mEq ER Tab PO SCH (09:06)
--- NOTE | 2017-11-25 12:46 | CP.PCM.PN ---
Subjective - Date & Time of Evaluation Date of Evaluation: 11/25/17 Time of Evaluation: 12:44 - Subjective Subjective: Overnight, he slipped and fell as he was going to the bathroom. No trauma to the head, pt did not fall in the floor. After the fall, patient was agitated and given 1x dose of Ativan. Pt is seen and examined by bedside this AM. Was seen eating, speaking and AAOx3. On a subsequent encounter, pt became very sleepy, lethargic. Objective - Vital Signs/Intake and Output Vital Signs (last 24 hours): Temp Pulse Resp BP Pulse Ox 99.1 F 92 H 18 134/70 97 11/25/17 12:14 11/25/17 12:14 11/25/17 12:14 11/25/17 12:14 11/25/17 12:14 - Medications Medications: Current Medications Folic Acid (Folic Acid) 1 mg PO DAILY [facility] Last Admin: 11/25/17 09:07 Dose: 1 mg Sodium Chloride (Sodium Chloride 0.9%) 1,000 mls @ 120 mls/hr IV .Q8H20M [facility] Stop: 11/25/17 13:08 Last Admin: 11/25/17 06:36 Dose: Not Given Levetiracetam (Keppra) 500 mg PO Q12H [facility] Last Admin: 11/25/17 12:00 Dose: 500 mg Pantoprazole Sodium (Protonix Inj) 40 mg IVP DAILY [facility] Last Admin: 11/25/17 09:07 Dose: 40 mg Potassium Chloride (K-Dur 20 Meq Er Tab) 20 meq PO DAILY [facility] Last Admin: 11/25/17 09:06 Dose: 20 meq Thiamine HCl (Vitamin B1 Tab) 100 mg PO DAILY [facility] Last Admin: 11/25/17 09:07 Dose: 100 mg - Labs Labs: 11/25/17 06:49 11/25/17 04:00 PT 20.0 Seconds (9.8-13.1) H 11/23/17 22:40 INR 1.8 (0.9-1.2) H 11/23/17 22:40 APTT 39.5 Seconds (25.6-37.1) H 11/23/17 22:40 - Constitutional Appears: No Acute Distress, Other (sleepy but arousable) - Head Exam Head Exam: ATRAUMATIC, NORMAL INSPECTION - ENT Exam ENT Exam: Mucous Membranes Moist - Respiratory Exam Respiratory Exam: Chest Wall Tenderness (in the R side T3-T4 area ), Clear to Ausculation Bilateral, NORMAL BREATHING PATTERN. absent: Wheezes - Cardiovascular Exam Cardiovascular Exam: REGULAR RHYTHM, +S1, +S2 - GI/Abdominal Exam GI & Abdominal Exam: Soft, Normal Bowel Sounds. absent: Tenderness - Extremities Exam Extremities Exam: Normal Inspection. absent: Calf Tenderness, Pedal Edema Additional comments: Tremor in his upper extremities noted b/l - Back Exam Back Exam: NORMAL INSPECTION - Neurological Exam Neurological Exam: Alert, Awake, Oriented x3 - Psychiatric Exam Psychiatric exam: Normal Affect, Normal Mood - Skin Skin Exam: Dry, Intact, Normal Color, Warm Assessment and Plan - Assessment and Plan (Free Text) Assessment: Assessment/Plan: 52 YO Male hx of cirrhosis with GI bleed (09/24/17), and chronic anemia is admitted for symptomatic anemia. Symptomatic anemia -improved -likely acute on chronic anemia -s/p 1.5 unit of PRBC -no sources of acute bleeding identified, FOBT neg -initial h/h 7.5/23.1, repeat h/h 9.6/ Transfusion reaction -resolved -reaction to blood product, transfusion stopped -Tmax of 102.6, currently afebrile -urine cx pos, blood cx neg x 24 hrs, procalcitonin low -s/p IVF -Tylenol for fever prn Alcohol Abuse -chronic -ETOH level 46 -CIWA score 9 points on 11/24/17; CIWA today 4 -thiamine 100mg po, folic acid 1g PO -ammonia on admission 67 to 55 UTI -asymptomatic -UA x 2 neg, neg leukes and neg nitrate -urine culture sig for gram pos cocci -sensitivity pending -will start PO keflex x 7 days Pancytopenia -likely chronic 2/2 to chronic alcohol abuse -MELD score 17; 6% 3 month mortality -s/p vitamin K 10mg PO Hypokalemia -Resolved -3.1 on admission repeat 4.1 Hx of seizures -c/w keppra BID -fall precautions DVT prophlx SCDs for now for thrombocytopenia
[2017-11-25] MEDS ORDERED: Tmp-Smz 800 mg-160 mg DS Tab PO SCH ×2 (13:26→21:00)
[2017-11-26 09:00] LABS: BASO # 0.1 K/uL (0.0-0.2); BASO % 1.3 % (0.0-2.0); EOS # 0.2 K/uL (0.0-0.7); EOS % 2.5 % (0.0-4.0); HEMOGLOBIN 11.2 g/dL (12.0-18.0); LYMPH # 0.5 K/uL (1.0-4.3); LYMPH % 7.4 % (20.0-40.0); MEAN CELL VOLUME 85.5 fl (80.0-94.0); MEAN CORPUSCULAR HEMOGLOBIN 28.4 pg (27.0-31.0); MEAN CORPUSCULAR HGB CONC 33.3 g/dL (33.0-37.0); MEAN PLATELET VOLUME 7.2 fl (7.2-11.7); MONO # 0.6 K/uL (0.0-0.8); MONO % 9.3 % (0.0-10.0); NEUT # 5.4 K/uL (1.8-7.0); NEUT % 79.5 % (50.0-75.0); NRBC % 0.3 % (0.0-0.0); PLATELET COUNT 89 K/uL (130-400); RBC 3.95 Mil/uL (4.40-5.90); RED CELL DISTRIBUTION WIDTH 20.7 % (11.5-14.5); WHITE BLOOD COUNT 6.7 K/uL (4.8-10.8)
--- NOTE | 2017-11-26 09:05 | CP.PCM.PN ---
<Melanie Page - Last Filed: 11/26/17 12:40> Subjective - Date & Time of Evaluation Date of Evaluation: 11/26/17 Time of Evaluation: 09:02 - Subjective Subjective: Overnight pt had a recorded fever of 101.1. Seen and examined by bedside this AM. Pt states that he is doing well, would like to eat. Denies chest pain, dyspnea, n/v/d/c, dysuri, urinary frequency, and chills. Objective - Vital Signs/Intake and Output Vital Signs (last 24 hours): Temp Pulse Resp BP Pulse Ox 98.4 F 80 18 131/73 96 11/26/17 08:13 11/26/17 08:13 11/26/17 08:13 11/26/17 08:13 11/26/17 08:13 - Medications Medications: Current Medications Folic Acid (Folic Acid) 1 mg PO DAILY [facility] Last Admin: 11/25/17 09:07 Dose: 1 mg Levetiracetam (Keppra) 500 mg PO Q12H [facility] Last Admin: 11/26/17 00:16 Dose: 500 mg Pantoprazole Sodium (Protonix Inj) 40 mg IVP DAILY [facility] Last Admin: 11/25/17 09:07 Dose: 40 mg Potassium Chloride (K-Dur 20 Meq Er Tab) 20 meq PO DAILY [facility] Last Admin: 11/25/17 09:06 Dose: 20 meq Thiamine HCl (Vitamin B1 Tab) 100 mg PO DAILY [facility] Last Admin: 11/25/17 09:07 Dose: 100 mg - Labs Labs: 11/25/17 06:49 11/25/17 04:00 PT 20.0 Seconds (9.8-13.1) H 11/23/17 22:40 INR 1.8 (0.9-1.2) H 11/23/17 22:40 APTT 39.5 Seconds (25.6-37.1) H 11/23/17 22:40 - Constitutional Appears: No Acute Distress - Head Exam Head Exam: ATRAUMATIC, NORMAL INSPECTION - Eye Exam Eye Exam: EOMI, Normal appearance - ENT Exam ENT Exam: Mucous Membranes Moist - Respiratory Exam Respiratory Exam: Rhonchi (on expiration in the lower lobes L>R. ), NORMAL BREATHING PATTERN. absent: Wheezes - Cardiovascular Exam Cardiovascular Exam: REGULAR RHYTHM, +S1, +S2 - GI/Abdominal Exam GI & Abdominal Exam: Soft, Normal Bowel Sounds. absent: Tenderness - Extremities Exam Extremities Exam: Normal Inspection. absent: Calf Tenderness, Pedal Edema - Back Exam Back Exam: NORMAL INSPECTION. absent: CVA tenderness (L), CVA tenderness (R) - Neurological Exam Neurological Exam: Alert, Awake - Psychiatric Exam Psychiatric exam: Normal Mood (sleepy) - Skin Skin Exam: Dry, Intact, Normal Color, Warm Assessment and Plan - Assessment and Plan (Free Text) Assessment: Assessment/Plan: 52 YO Male hx of cirrhosis with GI bleed (09/24/17), and chronic anemia is admitted for symptomatic anemia. Hospital stay complicated by UTI and pneumonia. Pneumonia -rhonchi on physical exam on lower lobes -CXR patchy opacities seen in left lower lobes; atelectasis vs developing infiltrate. Minimal R basilar atelectasis. -fever 101.1 -bcx neg x 48 hrs -repeat bcx -start doxycycline IVPB BID UTI -asymptomatic -UA x 2 neg, neg leukes and neg nitrate -urine culture sig for gram pos cocci -s/p keflex x 1 days -sensitivity appreciated -started on ampicillin Q8 today -D2 of abx treatment Symptomatic anemia -resolved -likely acute on chronic anemia -s/p 1.5 unit of PRBC -no sources of acute bleeding identified, FOBT neg -initial h/h 7.5/23.1, repeat h/h 11.2/33.7 Transfusion reaction -resolved -reaction to blood product, transfusion stopped -Tmax of 102.6, currently afebrile -reaction pathol review febrile High -urine cx pos, blood cx neg x 48 hrs, procalcitonin low -s/p IVF -Tylenol for fever prn Alcohol Abuse -chronic -ETOH level 46 -CIWA score 9 points on 11/24/17; CIWA 11/25/17 4 ; CIWA today 2 -thiamine 100mg po, folic acid 1g PO -ammonia on admission 67 to 55 -ativan prn for withdrawal Pancytopenia -likely chronic 2/2 to chronic alcohol abuse -MELD score 17; 6% 3 month mortality -s/p vitamin K 10mg PO Hypokalemia -Resolved -3.1 on admission repeat 4.1 Hx of seizures -c/w keppra BID -fall precautions DVT prophlx SCDs for now for thrombocytopenia <Cory,Jennifer - Last Filed: 11/26/17 13:24> Objective - Vital Signs/Intake and Output Vital Signs (last 24 hours): Temp Pulse Resp BP Pulse Ox 98.7 F 86 18 125/67 98 11/26/17 12:21 11/26/17 12:21 11/26/17 12:21 11/26/17 12:21 11/26/17 12:21 - Medications Medications: Current Medications Folic Acid (Folic Acid) 1 mg PO DAILY [facility] Last Admin: 11/26/17 09:21 Dose: 1 mg Ampicillin 500 mg/ Sodium (Chloride) 50 mls @ 100 mls/hr IVPB Q8 [facility] PRN Reason: Protocol Last Admin: 11/26/17 11:02 Dose: 100 mls/hr Doxycycline Hyclate 100 mg/ (Sodium Chloride) 100 mls @ 100 mls/hr IVPB Q12 [facility] PRN Reason: Protocol Levetiracetam (Keppra) 500 mg PO Q12H [facility] Last Admin: 11/26/17 00:16 Dose: 500 mg Pantoprazole Sodium (Protonix Inj) 40 mg IVP DAILY [facility] Last Admin: 11/26/17 09:22 Dose: 40 mg Potassium Chloride (K-Dur 20 Meq Er Tab) 20 meq PO DAILY [facility] Last Admin: 11/26/17 09:21 Dose: 20 meq Thiamine HCl (Vitamin B1 Tab) 100 mg PO DAILY [facility] Last Admin: 11/26/17 09:22 Dose: 100 mg - Labs Labs: 11/26/17 08:51 11/26/17 08:51 PT 20.0 Seconds (9.8-13.1) H 11/23/17 22:40 INR 1.8 (0.9-1.2) H 11/23/17 22:40 APTT 39.5 Seconds (25.6-37.1) H 11/23/17 22:40 Attending/Attestation - Attestation I have personally seen and examined this patient.: Yes I have fully participated in the care of the patient.: Yes I have reviewed all pertinent clinical information, including history, physical exam and plan: Yes Notes (Text): 11/26/17 13:23 Attestation ATTENDING NOTE - Patient seen and examined. Case discussed with resident. Agree with findings and plan. Doxycycline added to cover atypical bacteria.
[2017-11-26 09:19] LABS: BLOOD UREA NITROGEN 9 mg/dl (9-20); GFR AFRICAN-AMERICAN > 60; GFR NON-AFRICAN AMERICAN > 60
[2017-11-26] MEDS: Potassium Chloride 20 mEq ER Tab PO SCH (09:21)
--- NOTE | 2017-11-26 10:36 | RAD ---
HISTORY: fever spike, homeless COMPARISON: Comparison chest dated 11/19/2017 TECHNIQUE: Chest PA and lateral FINDINGS: LUNGS: Vague patchy opacities seen in the left lower lobe could represent atelectasis versus developing infiltrate. . Suspect minimal right basilar atelectasis. PLEURA: No significant pleural effusion identified. No pneumothorax apparent. CARDIOVASCULAR: Normal. OSSEOUS STRUCTURES: No significant abnormalities. VISUALIZED UPPER ABDOMEN: Normal. OTHER FINDINGS: None. IMPRESSION: Vague patchy opacities seen in the left lower lobe could represent atelectasis versus developing infiltrate. . Suspect minimal right basilar atelectasis
[2017-11-26 11:29] LABS: BANDS 7 % (0-2); EOSINOPHIL 2 % (0-7); LYMPHOCYTE 7 % (20-50); MONOCYTE 8 % (0-10); NEUTROPHIL 76 % (42-75); TOTAL CELLS COUNTED 100
[2017-11-26 11:30] LABS: ANISOCYTOSIS MODERATE; OVALOCYTES SLIGHT; PLATELET ESTIMATE DECREASED (NORMAL); POIKILOCYTOSIS SLIGHT; SCHISTOCYTES SLIGHT; TEARDROP CELLS SLIGHT
[2017-11-26] MEDS ORDERED: Magnesium Sulfate 1 GM in Dextrose 5% In Water 100 ML IVPB ONE (12:50)
[2017-11-27 07:35] LABS: HEMOGLOBIN 11.2 g/dL (12.0-18.0); MEAN CELL VOLUME 85.4 fl (80.0-94.0); MEAN CORPUSCULAR HEMOGLOBIN 28.9 pg (27.0-31.0); MEAN CORPUSCULAR HGB CONC 33.8 g/dL (33.0-37.0); RBC 3.89 Mil/uL (4.40-5.90); RED CELL DISTRIBUTION WIDTH 20.8 % (11.5-14.5); WHITE BLOOD COUNT 6.6 K/uL (4.8-10.8)
[2017-11-27 08:16] LABS: ALB/GLOB RATIO 0.6 (1.0-2.1); ALBUMIN 2.8 g/dL (3.5-5.0); ALT/SGPT 46 U/L (21-72); AST/SGOT 83 U/L (17-59); BLOOD UREA NITROGEN 14 mg/dl (9-20); CALCIUM 8.1 mg/dL (8.4-10.2); GFR AFRICAN-AMERICAN > 60; GFR NON-AFRICAN AMERICAN > 60
[2017-11-27] MEDS: Potassium Chloride 20 mEq ER Tab PO SCH (09:06)
--- NOTE | 2017-11-27 12:27 | CP.PCM.PN ---
<Melanie Page - Last Filed: 11/27/17 12:23> Subjective - Date & Time of Evaluation Date of Evaluation: 11/27/17 Time of Evaluation: 12:23 - Subjective Subjective: Overnight, pt spiked a fever of 101.2. Afebrile this AM. Pt states that he has a mild cough, productive with white sputum. Denies dyspnea, chills, n/v/d/c and symptoms. Pt encouraged to walk. Objective - Vital Signs/Intake and Output Vital Signs (last 24 hours): Temp Pulse Resp BP Pulse Ox 99.0 F 86 18 116/65 98 11/27/17 11:52 11/27/17 11:52 11/27/17 11:52 11/27/17 11:52 11/27/17 11:52 Intake and Output: 11/27/17 11/27/17 06:59 18:59 Intake Total 800 Balance 800 - Medications Medications: Current Medications Folic Acid (Folic Acid) 1 mg PO DAILY [facility] Last Admin: 11/27/17 09:06 Dose: 1 mg Ampicillin 500 mg/ Sodium (Chloride) 50 mls @ 100 mls/hr IVPB Q8 [facility] PRN Reason: Protocol Last Admin: 11/27/17 09:05 Dose: 100 mls/hr Doxycycline Hyclate 100 mg/ (Sodium Chloride) 100 mls @ 100 mls/hr IVPB Q12 [facility] PRN Reason: Protocol Last Admin: 11/27/17 09:05 Dose: 100 mls/hr Levetiracetam (Keppra) 500 mg PO Q12H [facility] Last Admin: 11/27/17 00:30 Dose: 500 mg Pantoprazole Sodium (Protonix Inj) 40 mg IVP DAILY [facility] Last Admin: 11/27/17 09:06 Dose: 40 mg Potassium Chloride (K-Dur 20 Meq Er Tab) 20 meq PO DAILY [facility] Last Admin: 11/27/17 09:06 Dose: 20 meq Thiamine HCl (Vitamin B1 Tab) 100 mg PO DAILY [facility] Last Admin: 11/27/17 09:06 Dose: 100 mg - Labs Labs: 11/27/17 06:00 11/27/17 06:00 PT 20.0 Seconds (9.8-13.1) H 11/23/17 22:40 INR 1.8 (0.9-1.2) H 11/23/17 22:40 APTT 39.5 Seconds (25.6-37.1) H 11/23/17 22:40 - Constitutional Appears: No Acute Distress - Head Exam Head Exam: ATRAUMATIC, NORMAL INSPECTION - Eye Exam Eye Exam: EOMI, Normal appearance - ENT Exam ENT Exam: Mucous Membranes Moist - Respiratory Exam Respiratory Exam: Clear to Ausculation Bilateral, Rhonchi (mild b/l lower lobes , improved ), NORMAL BREATHING PATTERN. absent: Wheezes - Cardiovascular Exam Cardiovascular Exam: REGULAR RHYTHM, +S1, +S2 - GI/Abdominal Exam GI & Abdominal Exam: Soft, Normal Bowel Sounds. absent: Tenderness - Back Exam Back Exam: NORMAL INSPECTION - Neurological Exam Neurological Exam: Alert, Awake, Oriented x3 - Skin Skin Exam: Dry, Intact, Normal Color, Warm Additional comments: Multiple tattoos noted Assessment and Plan - Assessment and Plan (Free Text) Assessment: Assessment/Plan: 52 YO Male hx of cirrhosis with GI bleed (09/24/17), and chronic anemia is admitted for symptomatic anemia. Hospital stay complicated by UTI and pneumonia. Pneumonia -CXR patchy opacities seen in left lower lobes; atelectasis vs developing infiltrate. Minimal R basilar atelectasis. -fever 101.2, wbc 6.6 -bcx (11/24) neg x 3days -repeat bcx (11/26) neg x 24 hrs -c/w doxycycline IVPB BID, to cover atypicals UTI -asymptomatic -UA x 2 neg, neg leukes and neg nitrate -urine culture sig for gram pos cocci -s/p keflex x 1 days -sensitivity appreciated -c/w on ampicillin Q8 D2 -D3 of abx treatment PT prolongation -resolved -EKG on admission sig for QTc 576 -Mg 1.5 and Phos 4.1 -s/p 1gm of Mg -repeat Mg 1.7 -Repeat EKG today; QTC 468, wnl Symptomatic anemia -resolved, stable -likely acute on chronic anemia -s/p 1.5 unit of PRBC -no sources of acute bleeding identified, FOBT neg -initial h/h 7.5/23.1, repeat h/h 11.2/33.7 Transfusion reaction -resolved -reaction to blood product, transfusion stopped -Tmax of 102.6, currently afebrile -reaction pathol review febrile High -urine cx pos, blood cx neg x 48 hrs, procalcitonin low -s/p IVF -Tylenol for fever prn Alcohol Abuse -chronic -ETOH level 46 -CIWA score 9 points on 11/24/17; CIWA 11/25/17 4 ; CIWA today 2 -thiamine 100mg po, folic acid 1g PO -ammonia on admission 67 to 55 -ativan prn for withdrawal Pancytopenia -likely chronic 2/2 to chronic alcohol abuse -MELD score 17; 6% 3 month mortality -s/p vitamin K 10mg PO Hypokalemia -Resolved -3.1 on admission repeat 4.1 Hx of seizures -c/w keppra BID -fall precautions DVT prophlx SCDs for now for thrombocytopenia <Jennifer Ray - Last Filed: 11/27/17 12:34> Objective - Vital Signs/Intake and Output Vital Signs (last 24 hours): Temp Pulse Resp BP Pulse Ox 99.0 F 86 18 116/65 98 11/27/17 11:52 11/27/17 11:52 11/27/17 11:52 11/27/17 11:52 11/27/17 11:52 Intake and Output: 11/27/17 11/27/17 06:59 18:59 Intake Total 800 Balance 800 - Medications Medications: Current Medications Folic Acid (Folic Acid) 1 mg PO DAILY [facility] Last Admin: 11/27/17 09:06 Dose: 1 mg Ampicillin 500 mg/ Sodium (Chloride) 50 mls @ 100 mls/hr IVPB Q8 [facility] PRN Reason: Protocol Last Admin: 11/27/17 09:05 Dose: 100 mls/hr Doxycycline Hyclate 100 mg/ (Sodium Chloride) 100 mls @ 100 mls/hr IVPB Q12 [facility] PRN Reason: Protocol Last Admin: 11/27/17 09:05 Dose: 100 mls/hr Levetiracetam (Keppra) 500 mg PO Q12H [facility] Last Admin: 11/27/17 00:30 Dose: 500 mg Pantoprazole Sodium (Protonix Inj) 40 mg IVP DAILY [facility] Last Admin: 11/27/17 09:06 Dose: 40 mg Potassium Chloride (K-Dur 20 Meq Er Tab) 20 meq PO DAILY [facility] Last Admin: 11/27/17 09:06 Dose: 20 meq Thiamine HCl (Vitamin B1 Tab) 100 mg PO DAILY [facility] Last Admin: 11/27/17 09:06 Dose: 100 mg - Labs Labs: 11/27/17 06:00 11/27/17 06:00 PT 20.0 Seconds (9.8-13.1) H 11/23/17 22:40 INR 1.8 (0.9-1.2) H 11/23/17 22:40 APTT 39.5 Seconds (25.6-37.1) H 11/23/17 22:40 Attending/Attestation - Attestation I have personally seen and examined this patient.: Yes I have fully participated in the care of the patient.: Yes I have reviewed all pertinent clinical information, including history, physical exam and plan: Yes Notes (Text): 11/27/17 12:34 Attestation Attending Note. Patient seen and examined. Did spike temp last night. Afebrile today. Continue Rx
--- NOTE | 2017-11-27 14:39 | CARD ---
APPROVED REPORT EKG Measurement Heart [id number] <Conclusion> Normal sinus rhythm Possible Left atrial enlargement Borderline ECG
[2017-11-27] MEDS ORDERED: Lactulose 10 gm/15 ml Syrup PO ONE (14:46)
[2017-11-28 08:31] LABS: BASO % 0.7 % (0.0-2.0); EOS # 0.2 K/uL (0.0-0.7); EOS % 3.7 % (0.0-4.0); HEMOGLOBIN 9.8 g/dL (12.0-18.0); LYMPH # 0.4 K/uL (1.0-4.3); LYMPH % 9.7 % (20.0-40.0); MEAN CELL VOLUME 85.6 fl (80.0-94.0); MEAN CORPUSCULAR HEMOGLOBIN 28.4 pg (27.0-31.0); MEAN CORPUSCULAR HGB CONC 33.1 g/dL (33.0-37.0); MONO # 0.6 K/uL (0.0-0.8); MONO % 12.3 % (0.0-10.0); NEUT # 3.4 K/uL (1.8-7.0); NEUT % 73.6 % (50.0-75.0); NRBC % 0.2 % (0.0-0.0); RBC 3.47 Mil/uL (4.40-5.90); RED CELL DISTRIBUTION WIDTH 20.5 % (11.5-14.5); WHITE BLOOD COUNT 4.6 K/uL (4.8-10.8)
[2017-11-28 08:38] LABS: ALB/GLOB RATIO 0.6 (1.0-2.1); ALBUMIN 2.7 g/dL (3.5-5.0); ALT/SGPT 63 U/L (21-72); AST/SGOT 107 U/L (17-59); BLOOD UREA NITROGEN 14 mg/dl (9-20); CALCIUM 7.8 mg/dL (8.4-10.2); GFR AFRICAN-AMERICAN > 60; GFR NON-AFRICAN AMERICAN > 60
[2017-11-28] MEDS: Potassium Chloride 20 mEq ER Tab PO SCH (09:36)
--- NOTE | 2017-11-28 09:50 | CP.PCM.PN ---
<Louis Gilman F - Last Filed: 11/28/17 11:45> Subjective - Date & Time of Evaluation Date of Evaluation: 11/28/17 Time of Evaluation: 08:40 - Subjective Subjective: NAEO, remained afebrile. Pt states that he has a mild cough, productive with white sputum. Denies dyspnea, chills, n/v/d/c and symptoms. IV amp. and doxy continuing Objective - Vital Signs/Intake and Output Vital Signs (last 24 hours): Temp Pulse Resp BP Pulse Ox 98.2 F 85 18 114/60 99 11/28/17 08:00 11/28/17 08:00 11/28/17 08:00 11/28/17 08:00 11/28/17 08:00 - Medications Medications: Current Medications Folic Acid (Folic Acid) 1 mg PO DAILY [facility] Last Admin: 11/28/17 09:36 Dose: 1 mg Ampicillin 500 mg/ Sodium (Chloride) 50 mls @ 100 mls/hr IVPB Q8 JANNIE PRN Reason: Protocol Last Admin: 11/28/17 09:32 Dose: 100 mls/hr Doxycycline Hyclate 100 mg/ (Sodium Chloride) 100 mls @ 100 mls/hr IVPB Q12 JANNIE PRN Reason: Protocol Last Admin: 11/27/17 22:37 Dose: 100 mls/hr Levetiracetam (Keppra) 500 mg PO Q12H [facility] Last Admin: 11/27/17 23:39 Dose: 500 mg Pantoprazole Sodium (Protonix Inj) 40 mg IVP DAILY [facility] Last Admin: 11/28/17 09:37 Dose: 40 mg Potassium Chloride (K-Dur 20 Meq Er Tab) 20 meq PO DAILY [facility] Last Admin: 11/28/17 09:36 Dose: 20 meq Thiamine HCl (Vitamin B1 Tab) 100 mg PO DAILY [facility] Last Admin: 11/28/17 09:39 Dose: 100 mg - Labs Labs: 11/28/17 08:00 11/28/17 08:00 PT 20.0 Seconds (9.8-13.1) H 11/23/17 22:40 INR 1.8 (0.9-1.2) H 11/23/17 22:40 APTT 39.5 Seconds (25.6-37.1) H 11/23/17 22:40 - Constitutional Appears: No Acute Distress, Unkempt - Head Exam Head Exam: ATRAUMATIC - Eye Exam Eye Exam: EOMI Pupil Exam: PERRL - ENT Exam ENT Exam: Mucous Membranes Moist - Neck Exam Neck Exam: Full ROM - Respiratory Exam Respiratory Exam: Rhonchi (mild rhonchi scattered). absent: Accessory Muscle Use, Chest Wall Tenderness, Rales, Wheezes, Respiratory Distress - Cardiovascular Exam Cardiovascular Exam: +S1, +S2 - GI/Abdominal Exam GI & Abdominal Exam: Soft. absent: Guarding, Rigid, Tenderness - Extremities Exam Extremities Exam: Full ROM. absent: Calf Tenderness, Pedal Edema - Neurological Exam Neurological Exam: Alert, Awake, Oriented x3 - Psychiatric Exam Psychiatric exam: Normal Affect, Normal Mood - Skin Skin Exam: Dry, Normal Color, Warm Assessment and Plan - Assessment and Plan (Free Text) Plan: 52 YO Male hx of cirrhosis with GI bleed (09/24/17), and chronic anemia is admitted for symptomatic anemia. Hospital stay complicated by UTI and pneumonia. Pneumonia -CXR patchy opacities seen in left lower lobes; atelectasis vs developing infiltrate. Minimal R basilar atelectasis. - afebrile -bcx (11/24) neg x 3days -repeat bcx (11/26) neg x 24 hrs -c/w doxycycline IV BID, to cover atypicals UTI -asymptomatic -UA x 2 neg, neg leukes and neg nitrate -urine culture sig for gram pos cocci -s/p keflex x 1 days -sensitivity appreciated -c/w on ampicillin Q8 D2 -D4 of abx treatment PT prolongation -resolved -EKG on admission sig for QTc 576 -Mg 1.5 and Phos 4.1 -s/p 1gm of Mg -repeat Mg 1.7 -Repeat EKG; QTC 468, wnl Symptomatic anemia -resolved, stable -likely acute on chronic anemia -s/p 1.5 unit of PRBC -no sources of acute bleeding identified, FOBT neg -initial h/h 7.5/23.1, repeat h/h 11.2/33.7 Transfusion reaction -resolved -reaction to blood product, transfusion stopped -Tmax of 102.6, currently afebrile -reaction pathol review febrile High -urine cx pos, blood cx neg x 48 hrs, procalcitonin low -s/p IVF -Tylenol for fever prn Alcohol Abuse -chronic -ETOH level 46 -CIWA score 9 points on 11/24/17; CIWA 11/25/17 4 ; CIWA today 2 -thiamine 100mg po, folic acid 1g PO -ammonia on admission 67 to 55 -ativan prn for withdrawal Pancytopenia -likely chronic 2/2 to chronic alcohol abuse -MELD score 17; 6% 3 month mortality -s/p vitamin K 10mg PO Hypokalemia -Resolved -3.1 on admission repeat 4.1 Hx of seizures -c/w keppra BID -fall precautions DVT prophlx SCDs for now for thrombocytopenia <Jennifer Ray - Last Filed: 11/29/17 07:08> Objective - Vital Signs/Intake and Output Vital Signs (last 24 hours): Temp Pulse Resp BP Pulse Ox 99 F 76 18 115/57 L 96 11/29/17 04:53 11/29/17 04:53 11/29/17 04:53 11/29/17 04:53 11/29/17 04:53 - Medications Medications: Current Medications Folic Acid (Folic Acid) 1 mg PO DAILY [facility] Last Admin: 11/28/17 09:36 Dose: 1 mg Guaifenesin (Robitussin) 100 mg PO Q6 PRN PRN Reason: Cough Last Admin: 11/29/17 05:00 Dose: 100 mg Hydrocortisone/Pramoxine (Proctofoam) 1 gm EXT TID PRN PRN Reason: Hemorrhoids Last Admin: 11/29/17 05:00 Dose: 1 applic Ampicillin 500 mg/ Sodium (Chloride) 50 mls @ 100 mls/hr IVPB Q8 JNANIE PRN Reason: Protocol Last Admin: 11/29/17 00:01 Dose: 100 mls/hr Doxycycline Hyclate 100 mg/ (Sodium Chloride) 100 mls @ 100 mls/hr IVPB Q12 JANNIE PRN Reason: Protocol Last Admin: 11/28/17 20:22 Dose: 100 mls/hr Levetiracetam (Keppra) 500 mg PO Q12H [facility] Last Admin: 11/28/17 23:41 Dose: 500 mg Pantoprazole Sodium (Protonix Inj) 40 mg IVP DAILY [facility] Last Admin: 11/28/17 09:37 Dose: 40 mg Potassium Chloride (K-Dur 20 Meq Er Tab) 20 meq PO DAILY JANNIE Last Admin: 11/28/17 09:36 Dose: 20 meq Thiamine HCl (Vitamin B1 Tab) 100 mg PO DAILY [facility] Last Admin: 11/28/17 09:39 Dose: 100 mg - Labs Labs: 11/29/17 04:20 11/29/17 04:20 PT 20.0 Seconds (9.8-13.1) H 11/23/17 22:40 INR 1.8 (0.9-1.2) H 11/23/17 22:40 APTT 39.5 Seconds (25.6-37.1) H 11/23/17 22:40 Attending/Attestation - Attestation I have personally seen and examined this patient.: Yes I have fully participated in the care of the patient.: Yes I have reviewed all pertinent clinical information, including history, physical exam and plan: Yes
[2017-11-28] MEDS: guaiFENesin 100 mg/5 ml Syrup UD PO PRN ×2 (12:57→20:19)
[2017-11-28] MEDS ORDERED: Hydrocortisone-Pramoxine(Proctofoam HC) EXT PRN (21:49)
[2017-11-29] MEDS ORDERED: Hydrocortisone-Pramoxine 1%-1% Foam(10 gm) EXT PRN (00:30)
[2017-11-29] MEDS: guaiFENesin 100 mg/5 ml Syrup UD PO PRN ×2 (05:00→12:37)
[2017-11-29 05:53] LABS: BASO % 0.5 % (0.0-2.0); EOS # 0.3 K/uL (0.0-0.7); EOS % 6.2 % (0.0-4.0); LYMPH # 0.7 K/uL (1.0-4.3); LYMPH % 15.8 % (20.0-40.0); MEAN CELL VOLUME 86.5 fl (80.0-94.0); MEAN CORPUSCULAR HEMOGLOBIN 28.1 pg (27.0-31.0); MEAN CORPUSCULAR HGB CONC 32.5 g/dL (33.0-37.0); MEAN PLATELET VOLUME 8.3 fl (7.2-11.7); MONO # 0.5 K/uL (0.0-0.8); MONO % 11.9 % (0.0-10.0); NEUT # 2.8 K/uL (1.8-7.0); NEUT % 65.6 % (50.0-75.0); NRBC % 0.1 % (0.0-0.0); RBC 3.22 Mil/uL (4.40-5.90); RED CELL DISTRIBUTION WIDTH 20.6 % (11.5-14.5); WHITE BLOOD COUNT 4.3 K/uL (4.8-10.8)
[2017-11-29 06:16] LABS: ALB/GLOB RATIO 0.6 (1.0-2.1); ALBUMIN 2.6 g/dL (3.5-5.0); ALT/SGPT 77 U/L (21-72); AST/SGOT 118 U/L (17-59); BLOOD UREA NITROGEN 12 mg/dl (9-20); CALCIUM 7.7 mg/dL (8.4-10.2); GFR AFRICAN-AMERICAN > 60; GFR NON-AFRICAN AMERICAN > 60
[2017-11-29] MEDS: Potassium Chloride 20 mEq ER Tab PO SCH (09:03)
--- NOTE | 2017-11-29 10:35 | CP.PCM.PN ---
Subjective - Date & Time of Evaluation Date of Evaluation: 11/29/17 Time of Evaluation: 10:35 - Subjective Subjective: No acute overnight events. Remains afebrile. Pt states that he is feeling well, states that he has a mild cough, scant sputum production (white in color). Endorsing low back pain, states that he has been laying down and not been able to walk around. Pt endorsed to walk around. Denies chest pain, tightness, dyspnea, chills, n/v/d/c. Objective - Vital Signs/Intake and Output Vital Signs (last 24 hours): Temp Pulse Resp BP Pulse Ox 98.4 F 75 18 119/67 98 11/29/17 07:56 11/29/17 07:56 11/29/17 07:56 11/29/17 07:56 11/29/17 07:56 - Medications Medications: Current Medications Folic Acid (Folic Acid) 1 mg PO DAILY [facility] Last Admin: 11/29/17 08:57 Dose: 1 mg Guaifenesin (Robitussin) 100 mg PO Q6 PRN PRN Reason: Cough Last Admin: 11/29/17 05:00 Dose: 100 mg Hydrocortisone/Pramoxine (Proctofoam) 1 gm EXT TID PRN PRN Reason: Hemorrhoids Last Admin: 11/29/17 05:00 Dose: 1 applic Ampicillin 500 mg/ Sodium (Chloride) 50 mls @ 100 mls/hr IVPB Q8 JANNIE PRN Reason: Protocol Last Admin: 11/29/17 08:56 Dose: 100 mls/hr Doxycycline Hyclate 100 mg/ (Sodium Chloride) 100 mls @ 100 mls/hr IVPB Q12 JANNIE PRN Reason: Protocol Last Admin: 11/29/17 09:57 Dose: 100 mls/hr Levetiracetam (Keppra) 500 mg PO Q12H JANNIE Last Admin: 11/28/17 23:41 Dose: 500 mg Pantoprazole Sodium (Protonix Inj) 40 mg IVP DAILY JANNIE Last Admin: 11/29/17 08:58 Dose: 40 mg Potassium Chloride (K-Dur 20 Meq Er Tab) 20 meq PO DAILY JANNIE Last Admin: 11/29/17 09:03 Dose: 20 meq Thiamine HCl (Vitamin B1 Tab) 100 mg PO DAILY JNANIE Last Admin: 11/29/17 08:57 Dose: 100 mg - Labs Labs: 11/29/17 04:20 11/29/17 04:20 PT 20.0 Seconds (9.8-13.1) H 11/23/17 22:40 INR 1.8 (0.9-1.2) H 11/23/17 22:40 APTT 39.5 Seconds (25.6-37.1) H 11/23/17 22:40 - Constitutional Appears: No Acute Distress - Head Exam Head Exam: ATRAUMATIC, NORMAL INSPECTION - Eye Exam Eye Exam: EOMI, Normal appearance - ENT Exam ENT Exam: Mucous Membranes Moist - Respiratory Exam Respiratory Exam: Rhonchi (mild L>R, improved ), NORMAL BREATHING PATTERN - Cardiovascular Exam Cardiovascular Exam: REGULAR RHYTHM, +S1, +S2 - GI/Abdominal Exam GI & Abdominal Exam: Soft, Normal Bowel Sounds. absent: Tenderness Additional comments: palpable liver edge, nontender - Extremities Exam Extremities Exam: Normal Inspection. absent: Calf Tenderness, Pedal Edema - Back Exam Back Exam: NORMAL INSPECTION. absent: CVA tenderness (L), CVA tenderness (R) - Neurological Exam Neurological Exam: Alert, Awake, Oriented x3 - Psychiatric Exam Psychiatric exam: Normal Affect, Normal Mood - Skin Skin Exam: Dry, Intact, Normal Color, Warm Assessment and Plan - Assessment and Plan (Free Text) Assessment: Assessment/Plan: 52 YO Male hx of cirrhosis with GI bleed (09/24/17), and chronic anemia is admitted for symptomatic anemia. Hospital stay complicated by UTI and pneumonia. Pneumonia, LLL -CXR patchy opacities seen in left lower lobes; atelectasis vs developing infiltrate. Minimal R basilar atelectasis. -afebrile -bcx (11/24) neg x 4 days -repeat bcx (11/26) neg x 48 hrs -c/w doxycycline IV BID, to cover atypicals (D4) UTI -asymptomatic -UA x 2 neg, neg leukes and neg nitrate -urine culture sig for gram pos cocci -s/p keflex x 1 days -sensitivity appreciated -c/w on ampicillin (D4) -Total abx D5 -repeat UA wnl -f/u repeat UCx Low back pain -likely musculoskeletal in nature -encouraged to ambulate -PT/OT on consult -Flexeril PO Liver failure, cirrhosis -chronic -cirrhosis with active alcohol use -AST 118; ALT 63; ALK phos 133; INR 1.8 -MELD score 19; 6% 3 month mortality -Child-Squires score 9pts, Child Class B indication for transplant evaluation -asymptomatic -will continue to monitor PT prolongation -resolved -EKG on admission sig for QTc 576 -Mg 1.5 and Phos 4.1 -s/p 1gm of Mg -repeat Mg 1.7 -Repeat EKG; QTc 468, wnl Symptomatic anemia -resolved, stable -likely acute on chronic anemia -s/p 1.5 unit of PRBC -no sources of acute bleeding identified, FOBT neg -initial h/h 7.5/23.1, repeat h/h 11.2/33.7 Transfusion reaction -resolved -reaction to blood product, transfusion stopped -Tmax of 102.6, currently afebrile -reaction pathol review febrile High -urine cx pos, blood cx neg x 48 hrs, procalcitonin low -s/p IVF -Tylenol for fever prn Alcohol Abuse -chronic -ETOH level 46 -CIWA score 9 points on 11/24/17; CIWA today 2 -thiamine 100mg po, folic acid 1g PO -ammonia on admission 67 to 55 -Ativan prn for withdrawal -PT/OT on board Pancytopenia -likely chronic 2/2 to chronic alcohol abuse -MELD score 17; 6% 3 month mortality -s/p vitamin K 10mg PO Hx of seizures -c/w keppra BID -fall precautions DVT prophlx SCDs for now for thrombocytopenia Encourage ambulation
[2017-11-29] MEDS ORDERED: Promethazine/Cod 6.25mg-10mg/5ml Syr UD PO PRN (10:42)
[2017-11-29 11:31] LABS: URINE BACTERIA RARE (<OCC); URINE BILIRUBIN NEGATIVE (NEGATIVE); URINE BLOOD NEGATIVE (NEGATIVE); URINE CLARITY SLIGHTY-CLOUDY (Clear); URINE COLOR YELLOW (YELLOW); URINE GLUCOSE (UA) NEG (Normal); URINE LEUKOCYTE ESTERASE NEG Leu/uL (Negative); URINE PROTEIN NEGATIVE (NEGATIVE); URINE UROBILINOGEN 0.2-1.0 mg/dL (0.2-1.0)
[2017-11-29] MEDS ORDERED: Lidocaine 5% Patch TD SCH (16:15)
[2017-11-29] MEDS: Promethazine/Cod 6.25mg-10mg/5ml Syr UD PO PRN ×2 (17:05→22:56)
[2017-11-30 00:07] VITALS: RESP 18
[2017-11-30 05:08] VITALS: BP 107/59; PULSE 81; TEMP 99.3; O2SAT 96
[2017-11-30 05:36] LABS: BASO % 0.9 % (0.0-2.0); EOS # 0.3 K/uL (0.0-0.7); EOS % 5.9 % (0.0-4.0); HEMOGLOBIN 9.3 g/dL (12.0-18.0); LYMPH # 0.8 K/uL (1.0-4.3); LYMPH % 17.7 % (20.0-40.0); MEAN CELL VOLUME 85.7 fl (80.0-94.0); MEAN CORPUSCULAR HEMOGLOBIN 28.4 pg (27.0-31.0); MEAN CORPUSCULAR HGB CONC 33.1 g/dL (33.0-37.0); MEAN PLATELET VOLUME 7.4 fl (7.2-11.7); MONO # 0.5 K/uL (0.0-0.8); MONO % 11.2 % (0.0-10.0); NEUT # 2.8 K/uL (1.8-7.0); NEUT % 64.3 % (50.0-75.0); NRBC % 0.1 % (0.0-0.0); RBC 3.27 Mil/uL (4.40-5.90); RED CELL DISTRIBUTION WIDTH 20.2 % (11.5-14.5); WHITE BLOOD COUNT 4.4 K/uL (4.8-10.8)
[2017-11-30 05:57] LABS: ALB/GLOB RATIO 0.6 (1.0-2.1); ALBUMIN 2.6 g/dL (3.5-5.0); ALT/SGPT 75 U/L (21-72); AST/SGOT 115 U/L (17-59); BLOOD UREA NITROGEN 12 mg/dl (9-20); GFR AFRICAN-AMERICAN > 60; GFR NON-AFRICAN AMERICAN > 60
--- NOTE | 2017-11-30 07:48 | CP.PCM.PCO ---
Against Medical Advice - AMA Patient Left Against Medical Advice: The patient declines admission to the hospital and wishes to leave the Telemetry , inpatient unit. This action is against my medical advice. This decision was made with informed refusal. The patient was told that admission to the hospital is necessary. Explanation of the reasons why were discussed. The risks of leaving were explained to the patient and include, but are not limited to, worsening of known or currently unknown conditions, permanent disability and from undiagnosed or untreated conditions. The patient has the capacity to make this informed decision and understands my explanation of the current medical problem and risks of leaving. The patient voluntarily accepts these risks and signed an AMA form documenting our conversation. The patient was given the opportunity to ask questions and reconsider. The patient was encouraged to return to the Emergency Department at any time for further care.
== END 2017-11-30 07:15 | disposition left against medical advice (07) | DRG 574 ==
LOC: H.ER 21:17 → H.ERHOLD 23:23 → H.TEL 11-24 02:05 → OBSVTOIN 11-25 14:00
PROVIDERS: ADMIT Family Medicine Geriatric Medicine; ATTEND Family Medicine Geriatric Medicine
PROC: 30233N1 Transfusion of Nonautologous Red Blood Cells into Peripheral Vein, Percutaneous Approach (ICD-10-PCS; principal; 2017-11-24)
DX: D61.818 Other pancytopenia (principal); J18.9 Pneumonia, unspecified organism; E87.6 Hypokalemia; F10.239 Alcohol dependence with withdrawal, unspecified; K70.30 Alcoholic cirrhosis of liver without ascites; N39.0 Urinary tract infection, site not specified; F10.229 Alcohol dependence with intoxication, unspecified; K70.40 Alcoholic hepatic failure without coma; D63.8 Anemia in other chronic diseases classified elsewhere; Y90.2 Blood alcohol level of 40-59 mg/100 ml; T80.89XA Other complications following infusion, transfusion and therapeutic injection, initial encounter; B95.2 Enterococcus as the cause of diseases classified elsewhere; G89.29 Other chronic pain; G40.909 Epilepsy, unspecified, not intractable, without status epilepticus; K29.70 Gastritis, unspecified, without bleeding; M25.512 Pain in left shoulder; F41.9 Anxiety disorder, unspecified; F17.200 Nicotine dependence, unspecified, uncomplicated; Z79.899 Other long term (current) drug therapy; Y84.8 Other medical procedures as the cause of abnormal reaction of the patient, or of later complication, without mention of misadventure at the time of the procedure

== ENCOUNTER 2017-11-30 15:54 | Emergency (ER) | payer MEDICAID ==
[2017-11-30 15:54] VITALS: BMI 24.4
--- NOTE | 2017-11-30 17:35 | ED PDOC ---
HPI: Psych/Substance Abuse Time Seen by Provider: 11/30/17 17:05 Chief Complaint (Nursing): Dizziness/Lightheaded Chief Complaint (Provider): Alcohol intoxication History Per: Patient History/Exam Limitations: no limitations Onset/Duration Of Symptoms: Days Additional Complaint(s): 52 year old male presents to the ED complaining his "equilibrium is off." Patient admits to having 2 shots of alcohol. He left AMA from the hospital earlier today. PMD: Chanelle Rowe Past Medical History Reviewed: Historical Data, Nursing Documentation, Vital Signs Vital Signs: Last Vital Signs Temp 98.6 F 11/30/17 16:13 Pulse 105 H 11/30/17 16:13 Resp 16 11/30/17 16:13 BP 129/67 11/30/17 16:13 Pulse Ox 99 11/30/17 16:13 - Medical History PMH: Anemia, Anxiety, Back Problems (herniated disc), Deep Vein Thrombosis, Fractures (rib fx, left shoulder, Left hand 5th digit, Humerus fracture), Gastritis, Seizures (? due to alcohol withdrawal), Chronic Pain (left shoulder) Denies: HIV, Chronic Kidney Disease - Surgical History Surgical History: Endoscopy - Family History Family History: States: Unknown Family Hx - Immunization History Hx Tetanus Toxoid Vaccination: Yes Hx Influenza Vaccination: Yes Hx Pneumococcal Vaccination: Yes - Home Medications Home Medications: Ambulatory Orders Medication Instructions Recorded levETIRAcetam [Keppra] 500 mg PO Q12H 10/25/17 Folic Acid 1 mg PO DAILY #30 tab 11/25/17 Omeprazole Magnesium [Prilosec Otc] 40 mg PO BID #60 tablet. 11/25/17 Thiamine [Vitamin B1 Tab] 100 mg PO DAILY #30 tab 11/25/17 - Allergies Allergies/Adverse Reactions: Allergies Allergy/AdvReac Type Severity Reaction Status Date / Time aspirin Allergy NAUSEA Verified 11/20/17 21:39 ibuprofen [From Motrin] Allergy NAUSEA Verified 11/20/17 21:39 naproxen Allergy RASH Verified 11/20/17 21:39 NSAIDS (Non-Steroidal Allergy NAUSEA Verified 11/20/17 21:39 Anti-Inflamma Review of Systems ROS Statement: Except As Marked, All Systems Reviewed And Found Negative Psych: Negative for: Suicidal ideation (homicidal ideation) Physical Exam - Reviewed Nursing Documentation Reviewed: Yes Vital Signs Reviewed: Yes - Physical Exam Appears: Positive for: Well, Non-toxic, No Acute Distress Head Exam: Positive for: ATRAUMATIC, NORMAL INSPECTION, NORMOCEPHALIC Skin: Positive for: Normal Color, Warm, Dry Cardiovascular/Chest: Positive for: Regular Rate, Rhythm. Negative for: Murmur Respiratory: Positive for: Normal Breath Sounds. Negative for: Decreased Breath Sounds, Accessory Muscle Use, Respiratory Distress Neurologic/Psych: Positive for: Alert, Oriented (x3) - Laboratory Results Result Diagrams: 11/30/17 17:35 11/30/17 17:35 - ECG O2 Sat by Pulse Oximetry: 99 (RA) Pulse Ox Interpretation: Normal Medical Decision Making Medical Decision Making: Time: 1706 Initial Impression: alcohol intoxication Initial Plan: --Alcohol Serum --CMP --CBC w/ Differential --Glucose, Blood, POC --Reevaluation Tolerating PO. Scribe Attestation: Documented by Jean Claude Whitmore, acting as a scribe for Luisana Escalante MD Provider Scribe Attestation: All medical record entries made by the Scribe were at my direction and personally dictated by me. I have reviewed the chart and agree that the record accurately reflects my personal performance of the history, physical exam, medical decision making, and the department course for this patient. I have also personally directed, reviewed, and agree with the discharge instructions and disposition. Disposition - Clinical Impression Clinical Impression: Alcohol abuse - Patient ED Disposition Is Patient to be Admitted: No - Disposition Referrals: [facility] [Outside] Disposition: Routine/Home Disposition Time: 18:18 Condition: STABLE Additional Instructions: DRINK PLENTY OF FLUIDS! Instructions: Alcohol Abuse and Alcoholism (DC), Effects of Alcohol on Your Health Forms: [employer] (Pashto)
[2017-11-30 17:51] LABS: BASO # 0.1 K/uL (0.0-0.2); BASO % 2.2 % (0.0-2.0); EOS # 0.2 K/uL (0.0-0.7); EOS % 4.1 % (0.0-4.0); HEMOGLOBIN 9.4 g/dL (12.0-18.0); LYMPH # 0.7 K/uL (1.0-4.3); LYMPH % 11.7 % (20.0-40.0); MEAN CELL VOLUME 86.5 fl (80.0-94.0); MEAN CORPUSCULAR HEMOGLOBIN 28.7 pg (27.0-31.0); MEAN CORPUSCULAR HGB CONC 33.2 g/dL (33.0-37.0); MEAN PLATELET VOLUME 7.6 fl (7.2-11.7); MONO # 0.7 K/uL (0.0-0.8); NEUT # 4.2 K/uL (1.8-7.0); NRBC % 0.1 % (0.0-0.0); RBC 3.26 Mil/uL (4.40-5.90); RED CELL DISTRIBUTION WIDTH 20.2 % (11.5-14.5); WHITE BLOOD COUNT 5.9 K/uL (4.8-10.8)
[2017-11-30 18:14] LABS: ALB/GLOB RATIO 0.7 (1.0-2.1); ALBUMIN 2.9 g/dL (3.5-5.0); ALT/SGPT 72 U/L (21-72); AST/SGOT 103 U/L (17-59); BLOOD UREA NITROGEN 13 mg/dl (9-20); CALCIUM 8.1 mg/dL (8.4-10.2); GFR AFRICAN-AMERICAN > 60; GFR NON-AFRICAN AMERICAN > 60
[2017-11-30 18:38] VITALS: BP 126/78; PULSE 78; RESP 20; TEMP 97.5
[2017-12-02 10:52] VITALS: O2SAT 99
== END 2017-11-30 18:39 | disposition home or self-care (01) ==
LOC: H.ER 15:54
DX: F10.129 Alcohol abuse with intoxication, unspecified (principal); G89.29 Other chronic pain; Z86.718 Personal history of other venous thrombosis and embolism; Z87.19 Personal history of other diseases of the digestive system; Z88.6 Allergy status to analgesic agent

== ENCOUNTER 2017-12-01 22:01 | Emergency (ER) | payer MEDICAID ==
[2017-12-01 22:01] VITALS: BMI 24.4
--- NOTE | 2017-12-01 22:59 | ED PDOC ---
HPI: Seizure Time Seen by Provider: 12/01/17 22:30 Chief Complaint (Nursing): Seizure Chief Complaint (Provider): seizure History Per: Patient Recent Seizure Activity Began: Just Before Arrival Additional Complaint(s): 52 y/o male presents to ED for evaluation of seizure prior to arrival. Patient states he was with his sister who saw him have a seizure. Denies head injury, urine/bowel incontinence. Did not take Keppra today. Requesting food. Past Medical History Reviewed: Historical Data, Nursing Documentation, Vital Signs Vital Signs: Last Vital Signs Temp 98.3 F 12/02/17 01:22 Pulse 97 H 12/02/17 01:22 Resp 18 12/02/17 01:22 BP 124/51 L 12/02/17 01:22 Pulse Ox 95 12/02/17 01:22 - Medical History PMH: Anemia, Anxiety, Back Problems (herniated disc), Deep Vein Thrombosis, Fractures (rib fx, left shoulder, Left hand 5th digit, Humerus fracture), Gastritis, Seizures (? due to alcohol withdrawal), Chronic Pain (left shoulder) Denies: HIV, Chronic Kidney Disease - Surgical History Surgical History: Endoscopy - Family History Family History: States: Unknown Family Hx - Immunization History Hx Tetanus Toxoid Vaccination: Yes Hx Influenza Vaccination: Yes Hx Pneumococcal Vaccination: Yes - Home Medications Home Medications: Ambulatory Orders Medication Instructions Recorded levETIRAcetam [Keppra] 500 mg PO Q12H 10/25/17 Folic Acid 1 mg PO DAILY #30 tab 11/25/17 Omeprazole Magnesium [Prilosec Otc] 40 mg PO BID #60 tablet. 11/25/17 Thiamine [Vitamin B1 Tab] 100 mg PO DAILY #30 tab 11/25/17 - Allergies Allergies/Adverse Reactions: Allergies Allergy/AdvReac Type Severity Reaction Status Date / Time aspirin Allergy NAUSEA Verified 11/20/17 21:39 ibuprofen [From Motrin] Allergy NAUSEA Verified 11/20/17 21:39 naproxen Allergy RASH Verified 11/20/17 21:39 NSAIDS (Non-Steroidal Allergy NAUSEA Verified 11/20/17 21:39 Anti-Inflamma Review of Systems ROS Statement: Except As Marked, All Systems Reviewed And Found Negative Neurological: Positive for: Seizures Physical Exam - Reviewed Nursing Documentation Reviewed: Yes Vital Signs Reviewed: Yes - Physical Exam Appears: Positive for: Well, Non-toxic, No Acute Distress Head Exam: Positive for: ATRAUMATIC, NORMAL INSPECTION, NORMOCEPHALIC Skin: Positive for: Normal Color Eye Exam: Positive for: Normal appearance ENT: Positive for: Normal ENT Inspection Cardiovascular/Chest: Positive for: Regular Rate, Rhythm Respiratory: Positive for: Normal Breath Sounds Gastrointestinal/Abdominal: Positive for: Normal Exam Back: Positive for: Normal Inspection Extremity: Positive for: Normal ROM Neurologic/Psych: Positive for: Alert, Oriented. Negative for: Motor/Sensory Deficits - ECG O2 Sat by Pulse Oximetry: 97 - Progress ED Course And Treament: accucheck, Keppra PO Patient AAOx3, not post-ictal. Ambulating steady gait. Requesting food. Stable for discharge Patient educated on findings, discharged with instructions to fill Keppra as previously prescribed. Follow up PMD/Neuro Return precautions given Disposition - Clinical Impression Clinical Impression: Seizures - Patient ED Disposition Is Patient to be Admitted: No Counseled Patient/Family Regarding: Studies Performed, Diagnosis, Need For Followup - Disposition Referrals: Matt Moreno APN [Primary Care Provider] - Disposition: Routine/Home Disposition Time: 01:06 Condition: STABLE Instructions: Seizures Forms: [employer] ([place])
[2017-12-02 01:24] VITALS: BP 124/51; PULSE 97; RESP 18; TEMP 98.3
[2017-12-02 02:37] VITALS: O2SAT 97
== END 2017-12-02 01:58 | disposition home or self-care (01) ==
LOC: H.ER 22:01
DX: R56.9 Unspecified convulsions (principal); G89.29 Other chronic pain; Z86.718 Personal history of other venous thrombosis and embolism; Z87.19 Personal history of other diseases of the digestive system; Z88.6 Allergy status to analgesic agent

== ENCOUNTER 2017-12-03 11:48 | Emergency (ER) | payer MEDICAID ==
[2017-12-03 12:00] VITALS: BMI 25.2
--- NOTE | 2017-12-03 12:57 | ED PDOC ---
HPI: Seizure Time Seen by Provider: 12/03/17 12:31 Chief Complaint (Nursing): Seizure Chief Complaint (Provider): Seizure History Per: Patient History/Exam Limitations: no limitations Number Of Seizures: One Length Of Seizures (Duration): Minutes (6) Additional Complaint(s): 52-year old male, with a past medical history of seizures, presents to ED for medical evaluation s/p seizure. Pt reports he had seizure this morning witnessed by sister. Pt refused ambulance. Pt came here after feeling better. Pt reports he is not complaint with Keppra due to not being able to fill it. Pt states he took 1 dose this morning. Received another dose on December 01 when he was in ER. Denies any other complaints. Pt had recent admission for pneumonia. PMD: Matt Moreno Past Medical History Reviewed: Historical Data, Nursing Documentation, Vital Signs Vital Signs: Last Vital Signs Temp 96.5 F L 12/03/17 14:30 Pulse 80 12/03/17 14:30 Resp 19 12/03/17 14:30 BP 126/78 12/03/17 14:30 Pulse Ox 97 12/03/17 14:58 - Medical History PMH: Anemia, Anxiety, Back Problems (herniated disc), Deep Vein Thrombosis, Fractures (rib fx, left shoulder, Left hand 5th digit, Humerus fracture), Gastritis, Seizures (? due to alcohol withdrawal), Chronic Pain (left shoulder) Denies: HIV, Chronic Kidney Disease - Surgical History Surgical History: Endoscopy - Family History Family History: States: Unknown Family Hx - Immunization History Hx Tetanus Toxoid Vaccination: Yes Hx Influenza Vaccination: Yes Hx Pneumococcal Vaccination: Yes - Home Medications Home Medications: Ambulatory Orders Medication Instructions Recorded levETIRAcetam [Keppra] 500 mg PO Q12H 10/25/17 Folic Acid 1 mg PO DAILY #30 tab 11/25/17 Omeprazole Magnesium [Prilosec Otc] 40 mg PO BID #60 tablet. 11/25/17 Thiamine [Vitamin B1 Tab] 100 mg PO DAILY #30 tab 11/25/17 - Allergies Allergies/Adverse Reactions: Allergies Allergy/AdvReac Type Severity Reaction Status Date / Time aspirin Allergy NAUSEA Verified 11/20/17 21:39 ibuprofen [From Motrin] Allergy NAUSEA Verified 11/20/17 21:39 naproxen Allergy RASH Verified 11/20/17 21:39 NSAIDS (Non-Steroidal Allergy NAUSEA Verified 11/20/17 21:39 Anti-Inflamma Review of Systems ROS Statement: Except As Marked, All Systems Reviewed And Found Negative Neurological: Positive for: Seizures Physical Exam - Reviewed Nursing Documentation Reviewed: Yes Vital Signs Reviewed: Yes - Physical Exam Appears: Positive for: Well (Appear comfortable. Watching TV.) - Laboratory Results Result Diagrams: 12/03/17 12:59 12/03/17 12:59 - ECG ECG Rhythm: Positive for: Sinus Rhythm O2 Sat by Pulse Oximetry: 97 (RA) Pulse Ox Interpretation: Normal - Progress ED Course And Treament: KDUR 20 MEQ X 1 DOSE KEPPRA 1000MG X 1 DOSE PATIENT COMFORTABLE IN ED. NO SEIZURE ACTIVITY NOTED Medical Decision Making Medical Decision Making: Time: 12:34 Plan: - EKG - cmp - magnesium - troponin I - cbc (with differentials) Potassium Level Reveals 3.5 MMOL/L [Low] Time: 13:43 K-Dur 20 mEq ER Tab Time: 14:00 Keppra 1,000 mg PO ONCE Upon provider evaluation patient is medically stable, and requires no further treatment in the ED at this time. Patient will be discharge. Counseling was provided and all questions were answered regarding diagnosis. There is agreement to discharge plan. Return if symptoms persist or worsen. Scribe Attestation: Documented by Foster Romero, acting as a scribe for Ceci Rangel PA-C. Provider Scribe Attestation: All medical record entries made by the Scribe were at my direction and personally dictated by me. I have reviewed the chart and agree that the record accurately reflects my personal performance of the history, physical exam, medical decision making, and the department course for this patient. I have also personally directed, reviewed, and agree with the discharge instructions and disposition. Disposition - Clinical Impression Clinical Impression: Seizure, Hypokalemia - Patient ED Disposition Is Patient to be Admitted: No - Disposition Referrals: [facility] [Outside] Disposition: Routine/Home Disposition Time: 14:31 Condition: FAIR Instructions: Hypokalemia (DC), Seizures, Adult (DC)
[2017-12-03 13:10] LABS: BASO # 0.1 K/uL (0.0-0.2); BASO % 1.5 % (0.0-2.0); EOS # 0.3 K/uL (0.0-0.7); EOS % 3.3 % (0.0-4.0); LYMPH # 0.9 K/uL (1.0-4.3); MEAN CELL VOLUME 87.1 fl (80.0-94.0); MEAN CORPUSCULAR HEMOGLOBIN 28.5 pg (27.0-31.0); MEAN CORPUSCULAR HGB CONC 32.7 g/dL (33.0-37.0); MEAN PLATELET VOLUME 7.3 fl (7.2-11.7); MONO # 1.1 K/uL (0.0-0.8); MONO % 12.4 % (0.0-10.0); NEUT # 6.1 K/uL (1.8-7.0); NEUT % 71.8 % (50.0-75.0); RBC 3.16 Mil/uL (4.40-5.90); WHITE BLOOD COUNT 8.5 K/uL (4.8-10.8)
[2017-12-03 13:22] LABS: ALB/GLOB RATIO 0.6 (1.0-2.1); ALBUMIN 2.8 g/dL (3.5-5.0); ALT/SGPT 58 U/L (21-72); AST/SGOT 108 U/L (17-59); BLOOD UREA NITROGEN 14 mg/dl (9-20); CALCIUM 7.9 mg/dL (8.4-10.2); GFR AFRICAN-AMERICAN > 60; GFR NON-AFRICAN AMERICAN > 60
[2017-12-03] MEDS ORDERED: Potassium Chloride 20 mEq ER Tab PO STA (13:43)
[2017-12-03] MEDS ORDERED: Potassium Chloride 20 mEq ER Tab PO ONE (13:52)
[2017-12-03 14:07] VITALS: RESP 19
[2017-12-03 14:31] VITALS: BP 126/78; PULSE 80; TEMP 96.5
[2017-12-03 14:53] VITALS: O2SAT 97
--- NOTE | 2017-12-06 11:41 | CARD ---
APPROVED REPORT EKG Measurement Heart [id number] <Conclusion> Normal sinus rhythm Normal ECG
== END 2017-12-03 14:32 | disposition home or self-care (01) ==
LOC: H.ER 11:48
DX: R56.9 Unspecified convulsions (principal); E87.6 Hypokalemia; G89.29 Other chronic pain; Z86.718 Personal history of other venous thrombosis and embolism; Z87.19 Personal history of other diseases of the digestive system; Z88.6 Allergy status to analgesic agent

== ENCOUNTER 2017-12-03 17:21 | Emergency (ER) | payer MEDICAID ==
[2017-12-03 17:21] VITALS: BMI 25.2
[2017-12-03 17:25] VITALS: BP 112/66
[2017-12-03 17:29] VITALS: PULSE 78; RESP 18; TEMP 98; O2SAT 99
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
== END 2017-12-03 17:40 | disposition left against medical advice (07) ==
LOC: H.ER 17:21
DX: R56.9 Unspecified convulsions (principal)

== ENCOUNTER 2017-12-04 11:34 | Emergency (ER) | payer MEDICAID ==
[2017-12-04 11:34] VITALS: BMI 25.2
--- NOTE | 2017-12-04 12:14 | ED PDOC ---
HPI: General Adult Time Seen by Provider: 12/04/17 12:12 Chief Complaint (Nursing): Headache Chief Complaint (Provider): med refill History Per: Patient (52 y/o male here with h/o seizures seen in ED yesterday for self documented seizure time here to request rx for keppra/prilosec. Has no complaints.) Past Medical History Reviewed: Historical Data, Nursing Documentation, Vital Signs Vital Signs: Last Vital Signs Temp 99.4 F 12/04/17 11:54 Pulse 88 12/04/17 11:54 Resp 20 12/04/17 11:54 BP 119/61 12/04/17 11:54 Pulse Ox 97 12/04/17 11:54 - Medical History PMH: Anemia, Anxiety, Back Problems (herniated disc), Deep Vein Thrombosis, Fractures (rib fx, left shoulder, Left hand 5th digit, Humerus fracture), Gastritis, Seizures (? due to alcohol withdrawal), Chronic Pain (left shoulder) Denies: HIV, Chronic Kidney Disease - Surgical History Surgical History: Endoscopy - Family History Family History: States: Unknown Family Hx - Immunization History Hx Tetanus Toxoid Vaccination: Yes Hx Influenza Vaccination: Yes Hx Pneumococcal Vaccination: Yes - Home Medications Home Medications: Ambulatory Orders Medication Instructions Recorded levETIRAcetam [Keppra] 500 mg PO Q12H 10/25/17 Folic Acid 1 mg PO DAILY #30 tab 11/25/17 Omeprazole Magnesium [Prilosec Otc] 40 mg PO BID #60 tablet. 11/25/17 Thiamine [Vitamin B1 Tab] 100 mg PO DAILY #30 tab 11/25/17 Levetiracetam [Keppra] 500 mg PO BID #60 tablet 12/04/17 Omeprazole Magnesium [Prilosec Otc] 20 mg PO DAILY #30 tab 12/04/17 - Allergies Allergies/Adverse Reactions: Allergies Allergy/AdvReac Type Severity Reaction Status Date / Time aspirin Allergy NAUSEA Verified 11/20/17 21:39 ibuprofen [From Motrin] Allergy NAUSEA Verified 11/20/17 21:39 naproxen Allergy RASH Verified 11/20/17 21:39 NSAIDS (Non-Steroidal Allergy NAUSEA Verified 11/20/17 21:39 Anti-Inflamma Review of Systems ROS Statement: Except As Marked, All Systems Reviewed And Found Negative Physical Exam - Reviewed Nursing Documentation Reviewed: Yes Vital Signs Reviewed: Yes - Physical Exam Appears: Positive for: Well, Non-toxic, No Acute Distress Head Exam: Positive for: ATRAUMATIC, NORMAL INSPECTION, NORMOCEPHALIC Skin: Positive for: Normal Color, Warm, DRY Eye Exam: Positive for: EOMI, Normal appearance, PERRL ENT: Positive for: Normal ENT Inspection Neck: Positive for: Normal, Painless ROM Cardiovascular/Chest: Positive for: Regular Rate, Rhythm Respiratory: Positive for: CNT, Normal Breath Sounds Gastrointestinal/Abdominal: Positive for: Normal Exam, Soft Back: Positive for: Normal Inspection Extremity: Positive for: Normal ROM Neurologic/Psych: Positive for: Alert, Oriented - ECG O2 Sat by Pulse Oximetry: 97 Disposition - Clinical Impression Clinical Impression: Medication refill - Patient ED Disposition Is Patient to be Admitted: No - Disposition Disposition: Routine/Home Disposition Time: 12:13 Condition: FAIR Prescriptions: Levetiracetam [Keppra] 500 mg PO BID #60 tablet Omeprazole Magnesium [Prilosec Otc] 20 mg PO DAILY #30 tab Instructions: Where to Get Help Paying for Your Prescriptions
[2017-12-04 12:35] VITALS: BP 130/76; PULSE 81; RESP 18; TEMP 98; O2SAT 100
== END 2017-12-04 12:35 | disposition home or self-care (01) ==
LOC: H.ER 11:34
DX: Z76.0 Encounter for issue of repeat prescription (principal); R51 Headache; G89.29 Other chronic pain; R56.9 Unspecified convulsions; Z86.718 Personal history of other venous thrombosis and embolism; Z87.19 Personal history of other diseases of the digestive system; Z88.6 Allergy status to analgesic agent

== ENCOUNTER 2017-12-04 15:23 | Emergency (ER) | payer MEDICAID ==
[2017-12-04 15:24] VITALS: BMI 25.2
[2017-12-04 15:57] VITALS: BP 114/65; PULSE 88; RESP 16; TEMP 98.6; O2SAT 99
--- NOTE | 2017-12-04 16:18 | ED PDOC ---
HPI: Back Time Seen by Provider: 12/04/17 16:00 Chief Complaint (Nursing): Back Pain Chief Complaint (Provider): Back Pain History Per: Patient History/Exam Limitations: no limitations Onset/Duration Of Symptoms: Hrs Current Symptoms Are (Timing): Still Present Additional Complaint(s): Shreyas Sepulveda is a 52 year old male with a past medical history of seizures , back pain, and anxiety, who is presenting to the ED with complaints of back pain with associated headaches, onset just prior to arrival. Patient was evaluated in this ED earlier this morning for a medication refill but states he did not feel the pain then. He offers no other medical complaints at this time. PMD: none provided Past Medical History Reviewed: Historical Data, Nursing Documentation, Vital Signs Vital Signs: Last Vital Signs Temp 98.6 F 12/04/17 15:54 Pulse 88 12/04/17 15:54 Resp 16 12/04/17 15:54 BP 114/65 12/04/17 15:54 Pulse Ox 99 12/04/17 15:54 - Medical History PMH: Anemia, Anxiety, Back Problems (herniated disc), Deep Vein Thrombosis, Fractures (rib fx, left shoulder, Left hand 5th digit, Humerus fracture), Gastritis, Seizures (? due to alcohol withdrawal), Chronic Pain (left shoulder) Denies: HIV, Chronic Kidney Disease - Surgical History Surgical History: Endoscopy - Family History Family History: States: Unknown Family Hx - Immunization History Hx Tetanus Toxoid Vaccination: Yes Hx Influenza Vaccination: Yes Hx Pneumococcal Vaccination: Yes - Home Medications Home Medications: Ambulatory Orders Medication Instructions Recorded levETIRAcetam [Keppra] 500 mg PO Q12H 10/25/17 Folic Acid 1 mg PO DAILY #30 tab 11/25/17 Omeprazole Magnesium [Prilosec Otc] 40 mg PO BID #60 tablet. 11/25/17 Thiamine [Vitamin B1 Tab] 100 mg PO DAILY #30 tab 11/25/17 Levetiracetam [Keppra] 500 mg PO BID #60 tablet 12/04/17 Omeprazole Magnesium [Prilosec Otc] 20 mg PO DAILY #30 tab 12/04/17 - Allergies Allergies/Adverse Reactions: Allergies Allergy/AdvReac Type Severity Reaction Status Date / Time aspirin Allergy NAUSEA Verified 11/20/17 21:39 ibuprofen [From Motrin] Allergy NAUSEA Verified 11/20/17 21:39 naproxen Allergy RASH Verified 11/20/17 21:39 NSAIDS (Non-Steroidal Allergy NAUSEA Verified 11/20/17 21:39 Anti-Inflamma Review of Systems ROS Statement: Except As Marked, All Systems Reviewed And Found Negative Musculoskeletal: Positive for: Back Pain Neurological: Positive for: Headache Physical Exam - Reviewed Nursing Documentation Reviewed: Yes Vital Signs Reviewed: Yes - Physical Exam Appears: Positive for: Non-toxic, No Acute Distress Cardiovascular/Chest: Positive for: Regular Rate, Rhythm Respiratory: Positive for: CNT, Normal Breath Sounds Back: Positive for: Normal Inspection. Negative for: L CVA Tenderness, R CVA Tenderness, Vertebral Tenderness Neurologic/Psych: Positive for: Alert, Oriented. Negative for: Motor/Sensory Deficits - ECG O2 Sat by Pulse Oximetry: 99 (RA) Pulse Ox Interpretation: Normal Medical Decision Making Medical Decision Making: Time: 16:01 Plan: --Tylenol 650 mg PO Upon provider evaluation patient is medically stable, and requires no further treatment in the ED at this time. Patient will be discharged. Counseling was provided and all questions were answered regarding diagnosis and need for follow up. There is agreement to discharge plan. Return if symptoms persist or worsen. Scribe Attestation: Documented by Roxana Wang, acting as a scribe for Ceci Rangel PA-C. Provider Scribe Attestation: All medical record entries made by the Scribe were at my direction and personally dictated by me. I have reviewed the chart and agree that the record accurately reflects my personal performance of the history, physical exam, medical decision making, and the department course for this patient. I have also personally directed, reviewed, and agree with the discharge instructions and disposition. Disposition - Clinical Impression Clinical Impression: Back strain - Patient ED Disposition Is Patient to be Admitted: No - Disposition Referrals: [facility] [Outside] Disposition: Routine/Home Disposition Time: 16:02 Condition: FAIR Instructions: Low Back Pain (DC) Forms: [employer] ([place]oz[place]ican)
== END 2017-12-04 16:38 | disposition home or self-care (01) ==
LOC: H.ER 15:23
DX: S39.012A Strain of muscle, fascia and tendon of lower back, initial encounter (principal); Y92.89 Other specified places as the place of occurrence of the external cause; G89.29 Other chronic pain; Z88.6 Allergy status to analgesic agent

== ENCOUNTER 2017-12-05 16:30 | Emergency (ER) | payer MEDICAID ==
[2017-12-05 16:30] VITALS: BMI 25.2
[2017-12-05 16:35] VITALS: BP 106/68; PULSE 100; RESP 18; O2SAT 97
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
--- NOTE | 2017-12-05 18:38 | RAD ---
PROCEDURE: MANDIBLE RADIOGRAPH SERIES HISTORY: left side jaw pain COMPARISON: None TECHNIQUE: Four views of the mandible have been submitted for interpretation. FINDINGS: No fracture or destructive bony lesion appreciable. No definitive dislocation bilaterally. Edentulous state. IMPRESSION: Unremarkable mandible series, other than edentulous state.
== END 2017-12-05 17:13 | disposition home or self-care (01) ==
LOC: H.ER 16:30
DX: S00.83XA Contusion of other part of head, initial encounter (principal); G89.29 Other chronic pain; Z86.718 Personal history of other venous thrombosis and embolism; Z87.19 Personal history of other diseases of the digestive system; Z88.6 Allergy status to analgesic agent; Y09 Assault by unspecified means

== ENCOUNTER 2017-12-06 21:54 | Emergency (ER) | payer MEDICAID ==
[2017-12-06 21:54] VITALS: BMI 25.2
[2017-12-06 22:22] VITALS: BP 118/69; PULSE 97; RESP 16; TEMP 98; O2SAT 96
== END 2017-12-07 02:10 | disposition left against medical advice (07) ==
LOC: H.ER 21:54
DX: Z02.89 Encounter for other administrative examinations (principal)

== ENCOUNTER 2017-12-07 09:49 | Emergency (ER) | payer MEDICAID ==
[2017-12-07 10:12] VITALS: O2SAT 98; BMI 23.7
[2017-12-07] MEDS ORDERED: levETIRAcetam 500 MG in Sodium Chloride 0.9% 100 ML IVPB STA (10:34)
--- NOTE | 2017-12-07 11:08 | CT ---
PROCEDURE: CT HEAD WITHOUT CONTRAST. HISTORY: head injury COMPARISON: None available. TECHNIQUE: Axial computed tomography images were obtained through the head/brain without intravenous contrast. Radiation dose: Total exam DLP = 768.24 mGy-cm. This CT exam was performed using one or more of the following dose reduction techniques: Automated exposure control, adjustment of the mA and/or kV according to patient size, and/or use of iterative reconstruction technique. FINDINGS: HEMORRHAGE: No intracranial hemorrhage. BRAIN: No mass effect or edema. No significant atrophy. Moderate periventricular and patchy deep/ subcortical white matter lucency consistent with chronic microvascular ischemic change. No evidence of acute infarct. VENTRICLES: Unremarkable. No hydrocephalus. CALVARIUM: Unremarkable. PARANASAL SINUSES: Chronic ethmoid, sphenoid and bilateral maxillary sinusitis. MASTOID AIR CELLS: Unremarkable as visualized. No inflammatory changes. OTHER FINDINGS: None. IMPRESSION: No intracranial hemorrhage. Chronic microvascular ischemic change. Chronic paranasal sinusitis.
--- NOTE | 2017-12-07 11:20 | ED PDOC ---
HPI: Seizure Time Seen by Provider: 12/07/17 10:12 Chief Complaint (Nursing): Seizure Chief Complaint (Provider): Recurrent Seizure History Per: Patient History/Exam Limitations: no limitations Number Of Seizures: Multiple (x2) Length Of Seizures (Duration): Unknown Quality Of Seizure: Generalized Severity: None Additional Complaint(s): 52 year old male with a past medical history of seizures and alcohol abuse presents to the emergency room for recurrent seizures. Patient reports that he had 2 seizures one last night and the other this morning. He states that during one of the seizures he fell from a chair hitting his head causing injury. Patient denies drinking alcohol today but admits to drinking. Denies any other medical complaints at this time. Patient is well known to the provider due to his multiple visits to the ED for seizures. Of note: Patient states that he is compliant with his seizure medication. ( keppra 1000 mg) PMD: [facility] Neurologist: Natasha Past Medical History Reviewed: Historical Data, Nursing Documentation, Vital Signs Vital Signs: Last Vital Signs Temp 98.4 F 12/07/17 14:52 Pulse 88 12/07/17 14:52 Resp 18 12/07/17 14:52 BP 136/84 12/07/17 14:52 Pulse Ox 98 12/07/17 14:52 - Medical History PMH: Anemia, Anxiety, Back Problems (herniated disc), Deep Vein Thrombosis, Fractures (rib fx, left shoulder, Left hand 5th digit, Humerus fracture), Gastritis, Seizures (? due to alcohol withdrawal), Chronic Pain (left shoulder) Denies: HIV, Chronic Kidney Disease - Surgical History Surgical History: Endoscopy - Family History Family History: States: Unknown Family Hx - Social History Current smoker - smoking cessation education provided: Yes (Light Smoker < 10 Cigarettes Daily) Ex-Smoker (has not smoked in the last 12 months): No Alcohol: > 2 Drinks/Day Drugs: Denies - Immunization History Hx Tetanus Toxoid Vaccination: Yes Hx Influenza Vaccination: Yes Hx Pneumococcal Vaccination: Yes - Home Medications Home Medications: Ambulatory Orders Medication Instructions Recorded levETIRAcetam [Keppra] 500 mg PO Q12H 10/25/17 Folic Acid 1 mg PO DAILY #30 tab 11/25/17 Omeprazole Magnesium [Prilosec Otc] 40 mg PO BID #60 tablet. 11/25/17 Thiamine [Vitamin B1 Tab] 100 mg PO DAILY #30 tab 11/25/17 Levetiracetam [Keppra] 500 mg PO BID #60 tablet 12/04/17 Omeprazole Magnesium [Prilosec Otc] 20 mg PO DAILY #30 tab 12/04/17 - Allergies Allergies/Adverse Reactions: Allergies Allergy/AdvReac Type Severity Reaction Status Date / Time aspirin Allergy NAUSEA Verified 12/09/17 10:56 ibuprofen [From Motrin] Allergy NAUSEA Verified 12/09/17 10:56 naproxen Allergy RASH Verified 12/09/17 10:56 NSAIDS (Non-Steroidal Allergy NAUSEA Verified 12/09/17 10:56 Anti-Inflamma Review of Systems ROS Statement: Except As Marked, All Systems Reviewed And Found Negative Neurological: Positive for: Seizures (x2 ) Physical Exam - Reviewed Nursing Documentation Reviewed: Yes Vital Signs Reviewed: Yes - Physical Exam Appears: Positive for: Non-toxic, No Acute Distress Head Exam: Positive for: ATRAUMATIC, NORMAL INSPECTION, NORMOCEPHALIC Skin: Positive for: Normal Color, Warm, Dry. Negative for: Rash Eye Exam: Positive for: Normal appearance, EOMI, PERRL. Negative for: Nystagmus ENT: Positive for: Normal ENT Inspection. Negative for: Nasal Congestion, Tonsillar Exudate, Tonsillar Swelling Neck: Positive for: Normal, Painless ROM, Supple Cardiovascular/Chest: Positive for: Regular Rate, Rhythm, Chest Non Tender. Negative for: Tachycardia Respiratory: Positive for: Normal Breath Sounds. Negative for: Crackles, Rales , Wheezing, Respiratory Distress Gastrointestinal/Abdominal: Positive for: Normal Exam, Bowel Sounds, Soft. Negative for: Tenderness, Mass, Guarding, Rebound Back: Positive for: Normal Inspection. Negative for: L CVA Tenderness, R CVA Tenderness, Vertebral Tenderness Extremity: Positive for: Normal ROM. Negative for: Tenderness, Pedal Edema, Calf Tenderness, Deformity, Swelling Neurologic/Psych: Positive for: Alert, Oriented, Gait (unsteady), Other ( slurred speech) - Laboratory Results Result Diagrams: 12/07/17 11:29 - ECG O2 Sat by Pulse Oximetry: 98 (RA) Pulse Ox Interpretation: Normal - Progress Re-evaluation Time: 14:24 Condition: Re-examined, Improved Medical Decision Making Medical Decision Makin Initial Impression 52 year old male presenting with recurrent seizure, possible alcohol intoxication and head injury Differential: Traumatic brain injury, Alcohol abuse vs. other drug abuse Initial Plan: * CT head w/o Contrast * Alcohol Serum * BMP * Magnesium * Keppra 500 mg NS 100 mL IVPB * Keppra 500 mg PO * Reevaluation 1107 PROCEDURE: CT HEAD WITHOUT CONTRAST. HISTORY: head injury COMPARISON: None available. TECHNIQUE: Axial computed tomography images were obtained through the head/brain without intravenous contrast. Radiation dose: Total exam DLP = 768.24 mGy-cm. This CT exam was performed using one or more of the following dose reduction techniques: Automated exposure control, adjustment of the mA and/or kV according to patient size, and/or use of iterative reconstruction technique. FINDINGS: HEMORRHAGE: No intracranial hemorrhage. BRAIN: No mass effect or edema. No significant atrophy. Moderate periventricular and patchy deep/ subcortical white matter lucency consistent with chronic microvascular ischemic change. No evidence of acute infarct. VENTRICLES: Unremarkable. No hydrocephalus. CALVARIUM: Unremarkable. PARANASAL SINUSES: Chronic ethmoid, sphenoid and bilateral maxillary sinusitis. MASTOID AIR CELLS: Unremarkable as visualized. No inflammatory changes. OTHER FINDINGS: None. IMPRESSION: No intracranial hemorrhage. Chronic microvascular ischemic change. Chronic paranasal sinusitis. Documented by Yana Pino acting as a scribe for Cathy Salazar MD. All medical record entries made by the Scribe were at my direction and personally dictated by me. I have reviewed the chart and agree that the record accurately reflects my personal performance of the history, physical exam, medical decision making, and the department course for this patient. I have also personally directed, reviewed, and agree with the discharge instructions and disposition. Disposition - Clinical Impression Clinical Impression: Seizure disorder, EtOH dependence - Patient ED Disposition Is Patient to be Admitted: No Doctor Will See Patient In The: Office Counseled Patient/Family Regarding: Studies Performed, Diagnosis, Need For Followup - Disposition Referrals: [facility] [Outside] French Kaur MD [Staff Provider] - Disposition: Routine/Home Disposition Time: 14:24 Condition: GOOD Additional Instructions: Follow up with your neurologist and with your PCP in 2-3 days. Instructions: Seizures, Adult (DC), Alcohol Abuse and Alcoholism (DC)
[2017-12-07 11:56] LABS: BLOOD UREA NITROGEN 16 mg/dl (9-20); CALCIUM 7.6 mg/dL (8.4-10.2); GFR AFRICAN-AMERICAN > 60; GFR NON-AFRICAN AMERICAN > 60
[2017-12-07 14:53] VITALS: BP 136/84; PULSE 88; RESP 18; TEMP 98.4
== END 2017-12-07 15:00 | disposition home or self-care (01) ==
LOC: H.ER 09:49
DX: F10.20 Alcohol dependence, uncomplicated (principal); G40.909 Epilepsy, unspecified, not intractable, without status epilepticus; S09.90XA Unspecified injury of head, initial encounter; W07.XXXA Fall from chair, initial encounter; Y92.89 Other specified places as the place of occurrence of the external cause; G89.29 Other chronic pain; J32.9 Chronic sinusitis, unspecified; Z86.718 Personal history of other venous thrombosis and embolism; Z87.19 Personal history of other diseases of the digestive system; Z88.6 Allergy status to analgesic agent
CPT/HCPCS: 70450; 80048; 80320; 83735; 96374; 99285; J1953

== ENCOUNTER 2017-12-07 20:05 | Emergency (ER) | payer MEDICAID ==
[2017-12-07 20:05] VITALS: BMI 23.7
[2017-12-07 20:42] VITALS: BP 129/65; PULSE 91; RESP 16; TEMP 98; O2SAT 98
== END 2017-12-07 21:00 | disposition left against medical advice (07) ==
LOC: H.ER 20:05
DX: Z02.89 Encounter for other administrative examinations (principal)

== ENCOUNTER 2017-12-08 17:48 | Emergency (ER) | payer MEDICAID ==
[2017-12-08 17:48] VITALS: BMI 23.7
[2017-12-08 18:24] VITALS: BP 122/67; PULSE 90; RESP 18; TEMP 98; O2SAT 97
--- NOTE | 2017-12-08 19:14 | ED PDOC ---
HPI: General Adult Time Seen by Provider: 12/08/17 18:42 Chief Complaint (Nursing): Seizure Chief Complaint (Provider): unwitnessed seizure History Per: Patient History/Exam Limitations: intoxication Onset/Duration Of Symptoms: Hrs (today) Recently: Seen In ED Additional Complaint(s): Shreyas Sepulveda is a 52 year old male, with a past medical history of seizures, who presents to the emergency department for evaluation of a possible unwitnessed seizure earlier today. Of note, patient was seen here yesterday for the same, had a head CT done which came back normal. Patient states he's compliant with his epilepsy medications. Patient is well known to ED and is seen almost daily. Patient also has a history of alcohol abuse. He denies any physical complaints at this time. PMD: None provided. Past Medical History Reviewed: Historical Data, Nursing Documentation, Vital Signs Vital Signs: Last Vital Signs Temp 98 F 12/08/17 18:21 Pulse 90 12/08/17 18:21 Resp 18 12/08/17 18:21 BP 122/67 12/08/17 18:21 Pulse Ox 97 12/11/17 23:39 - Medical History PMH: Anemia, Anxiety, Back Problems (herniated disc), Deep Vein Thrombosis, Fractures (rib fx, left shoulder, Left hand 5th digit, Humerus fracture), Gastritis, Seizures (? due to alcohol withdrawal), Chronic Pain (left shoulder) Denies: HIV, Chronic Kidney Disease - Surgical History Surgical History: Endoscopy - Family History Family History: States: Unknown Family Hx - Social History Current smoker - smoking cessation education provided: Yes (<10 cigarettes daily ) Alcohol: > 2 Drinks/Day Drugs: Denies - Home Medications Home Medications: Ambulatory Orders Medication Instructions Recorded levETIRAcetam [Keppra] 500 mg PO Q12H 10/25/17 Folic Acid 1 mg PO DAILY #30 tab 11/25/17 Omeprazole Magnesium [Prilosec Otc] 40 mg PO BID #60 tablet. 11/25/17 Thiamine [Vitamin B1 Tab] 100 mg PO DAILY #30 tab 11/25/17 Levetiracetam [Keppra] 500 mg PO BID #60 tablet 12/04/17 Omeprazole Magnesium [Prilosec Otc] 20 mg PO DAILY #30 tab 12/04/17 - Allergies Allergies/Adverse Reactions: Allergies Allergy/AdvReac Type Severity Reaction Status Date / Time aspirin Allergy NAUSEA Verified 12/09/17 10:56 ibuprofen [From Motrin] Allergy NAUSEA Verified 12/09/17 10:56 naproxen Allergy RASH Verified 12/09/17 10:56 NSAIDS (Non-Steroidal Allergy NAUSEA Verified 12/09/17 10:56 Anti-Inflamma Review of Systems ROS Statement: Except As Marked, All Systems Reviewed And Found Negative Physical Exam - Reviewed Nursing Documentation Reviewed: Yes Vital Signs Reviewed: Yes - Physical Exam Comments: GENERAL APPEARANCE: Patient is awake, alert, oriented x 3, in no acute distress. Resting comfortably. Alcohol on breath SKIN: Warm, dry; (-) cyanosis HEAD: (-) scalp swelling, (-) scalp tenderness. EYES: (-) conjunctival pallor, (-) scleral icterus, (-) nystagmus. NECK: Supple FROM (-) tenderness, (-) stiffness, (-) lymphadenopathy. CHEST AND RESPIRATORY: (-) rales, (-) rhonchi, (-) wheezes; breath sounds equal. Respirations even and nonlabored, speaking in full sentences. NEURO AND PSYCH: Mental status as above. 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 Pupils equal and reactive; EOMI and painless; (-) facial asymmetry; tongue and uvula midline. - ECG O2 Sat by Pulse Oximetry: 97 (RA) Pulse Ox Interpretation: Normal Medical Decision Making Medical Decision Making: Time: 18:42 Initial Impression: alcohol intoxication, seizure disorder Initial Plan: --Alcohol serum --Glucose, Blood, POC --Reevaluation 19:32 -Patient found to be drinking a bottle of vodka in ED room. When bottle was taken from patient, he started making verbal slurs at ED staff. 19:35 Accuchek: 94 mg/dL Serum Alcohol: 285 21:35 -Patient agitated in ER room requesting to leave. Ambulating in ER with unassisted gait, AA&OX3. Patient refusing to sign paperwork. Scribe Attestation: Documented by Giovany Puri, acting as a scribe for Haydee Hayes PA-C Provider Scribe Attestation: All medical record entries made by the Scribe were at my direction and personally dictated by me. I have reviewed the chart and agree that the record accurately reflects my personal performance of the history, physical exam, medical decision making, and the department course for this patient. I have also personally directed, reviewed, and agree with the discharge instructions and disposition. Disposition - Clinical Impression Clinical Impression: Alcohol abuse with intoxication - Patient ED Disposition Is Patient to be Admitted: No Counseled Patient/Family Regarding: Diagnosis, Need For Followup - Disposition Referrals: [facility] [Outside] Disposition: Routine/Home Disposition Time: 21:35 Condition: FAIR Instructions: Alcohol Abuse and Alcoholism (DC), Effects of Alcohol on Your Health Forms: [employer] (Croatian) Print Language: COMORAN Results - Lab Results Lab Results: 12/08/17 19:00 Alcohol, Quantitative 285 H
== END 2017-12-08 21:37 | disposition home or self-care (01) ==
LOC: H.ER 17:48
DX: F10.129 Alcohol abuse with intoxication, unspecified (principal); Y90.8 Blood alcohol level of 240 mg/100 ml or more; G40.909 Epilepsy, unspecified, not intractable, without status epilepticus; G89.29 Other chronic pain; F17.210 Nicotine dependence, cigarettes, uncomplicated; Z86.718 Personal history of other venous thrombosis and embolism; Z87.19 Personal history of other diseases of the digestive system; Z88.6 Allergy status to analgesic agent

== ENCOUNTER 2017-12-09 22:27 | Emergency (ER) | payer MEDICAID, OTHER ==
[2017-12-09 22:27] VITALS: BMI 23.7
[2017-12-09 22:47] VITALS: RESP 16
[2017-12-09 23:34] VITALS: BP 122/75; PULSE 86; TEMP 98.2; O2SAT 98
--- NOTE | 2017-12-17 06:17 | ED PDOC ---
HPI: Seizure Time Seen by Provider: 12/09/17 22:37 Chief Complaint (Nursing): Altered Mental Status History Per: Patient History/Exam Limitations: no limitations Additional Complaint(s): Patient with hx of seizure disorder, well known to ED, presenting with unwitnessed seizure. States he did not take his medications. Patient resting quietly and comfortably prior to examination. No other complaints. Past Medical History Reviewed: Historical Data, Nursing Documentation, Vital Signs Vital Signs: Last Vital Signs Temp 98.2 F 12/09/17 23:31 Pulse 86 12/09/17 23:31 Resp 16 12/09/17 23:31 BP 122/75 12/09/17 23:31 Pulse Ox 98 12/09/17 23:31 - Medical History PMH: Anemia, Anxiety, Back Problems (herniated disc), Deep Vein Thrombosis, Fractures (rib fx, left shoulder, Left hand 5th digit, Humerus fracture), Gastritis, Seizures (? due to alcohol withdrawal), Chronic Pain (left shoulder) Denies: HIV, Chronic Kidney Disease - Surgical History Surgical History: Endoscopy - Family History Family History: States: Unknown Family Hx - Immunization History Hx Tetanus Toxoid Vaccination: Yes Hx Influenza Vaccination: Yes Hx Pneumococcal Vaccination: Yes - Home Medications Home Medications: Ambulatory Orders Medication Instructions Recorded levETIRAcetam [Keppra] 500 mg PO Q12H 10/25/17 Folic Acid 1 mg PO DAILY #30 tab 11/25/17 Omeprazole Magnesium [Prilosec Otc] 40 mg PO BID #60 tablet. 11/25/17 Thiamine [Vitamin B1 Tab] 100 mg PO DAILY #30 tab 11/25/17 Levetiracetam [Keppra] 500 mg PO BID #60 tablet 12/04/17 Omeprazole Magnesium [Prilosec Otc] 20 mg PO DAILY #30 tab 12/04/17 levETIRAcetam [Keppra] 500 mg PO BID #30 tab 12/16/17 - Allergies Allergies/Adverse Reactions: Allergies Allergy/AdvReac Type Severity Reaction Status Date / Time aspirin Allergy NAUSEA Verified 12/14/17 23:08 ibuprofen [From Motrin] Allergy NAUSEA Verified 12/14/17 23:08 naproxen Allergy RASH Verified 12/14/17 23:08 NSAIDS (Non-Steroidal Allergy NAUSEA Verified 12/14/17 23:08 Anti-Inflamma Review of Systems ROS Statement: Except As Marked, All Systems Reviewed And Found Negative Constitutional: Negative for: Fever, Chills Cardiovascular: Negative for: Chest Pain Respiratory: Negative for: Cough Gastrointestinal: Negative for: Nausea, Vomiting, Abdominal Pain Neurological: Positive for: Seizures Physical Exam - Reviewed Nursing Documentation Reviewed: Yes Vital Signs Reviewed: Yes - Physical Exam Appears: Positive for: Well, Non-toxic, No Acute Distress Head Exam: Positive for: ATRAUMATIC, NORMAL INSPECTION, NORMOCEPHALIC Skin: Positive for: Normal Color, Warm, DRY Eye Exam: Positive for: EOMI, Normal appearance, PERRL ENT: Positive for: Normal ENT Inspection Neck: Positive for: Normal, Painless ROM Cardiovascular/Chest: Positive for: Regular Rate, Rhythm Respiratory: Positive for: CNT, Normal Breath Sounds Gastrointestinal/Abdominal: Positive for: Normal Exam, Soft Back: Positive for: Normal Inspection Extremity: Positive for: Normal ROM Neurologic/Psych: Positive for: 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 Negative for: Motor/Sensory Deficits - ECG O2 Sat by Pulse Oximetry: 98 Pulse Ox Interpretation: Normal Medical Decision Making Medical Decision Making: Patient with seizure disorder presenting with seizure in setting of med noncompliance. I advised patient to followup as outpatient given well appearance and no seizure activity in the ED. Patient with normal neuro exam, well appearing, stable for discharge. Disposition - Clinical Impression Clinical Impression: Seizures - Disposition Referrals: [facility] [Outside] Disposition: Routine/Home Disposition Time: 01:00 Condition: STABLE Instructions: Seizures, Adult (DC) Forms: [employer] (Japanese)
== END 2017-12-09 23:36 | disposition home or self-care (01) ==
LOC: H.ER 22:27
DX: G40.909 Epilepsy, unspecified, not intractable, without status epilepticus (principal); Z91.14 Patient's other noncompliance with medication regimen; Z86.718 Personal history of other venous thrombosis and embolism; Z87.19 Personal history of other diseases of the digestive system; G89.29 Other chronic pain; Z88.6 Allergy status to analgesic agent

== ENCOUNTER 2017-12-12 15:15 | Emergency (ER) | payer MEDICAID ==
[2017-12-12 15:16] VITALS: BMI 23.7
[2017-12-12 15:25] VITALS: PULSE 78; O2SAT 100
--- NOTE | 2017-12-12 15:29 | ED PDOC ---
HPI: General Adult Time Seen by Provider: 12/12/17 15:28 Chief Complaint (Nursing): Med Refill Chief Complaint (Provider): eval History Per: Patient Additional Complaint(s): 52-year-old male well-known to emergency department presents requesting dose of Keppra. Patient has history of alcohol abuse and seizure disorder. Patient initially requested prescription for Keppra because he states that his medications were thrown out by accident and then he states that he has a prescription at home and just needs to fill it at the pharmacy tomorrow. He states his pharmacy is closed today. Patient is unsure of the dose that he takes. Past Medical History Reviewed: Historical Data, Nursing Documentation, Vital Signs Vital Signs: Last Vital Signs Temp 98.0 F 12/12/17 15:23 Pulse 78 12/12/17 15:23 Resp 19 12/12/17 15:23 BP 132/71 12/12/17 15:23 Pulse Ox 100 12/12/17 15:29 - Medical History PMH: Anemia, Anxiety, Back Problems (herniated disc), Deep Vein Thrombosis, Fractures (rib fx, left shoulder, Left hand 5th digit, Humerus fracture), Gastritis, Seizures (? due to alcohol withdrawal), Chronic Pain (left shoulder) - Surgical History Surgical History: Endoscopy - Family History Family History: States: No Known Family Hx - Social History Current smoker - smoking cessation education provided: Yes Alcohol: > 2 Drinks/Day Drugs: Denies - Home Medications Home Medications: Ambulatory Orders Medication Instructions Recorded levETIRAcetam [Keppra] 500 mg PO Q12H 10/25/17 Folic Acid 1 mg PO DAILY #30 tab 11/25/17 Omeprazole Magnesium [Prilosec Otc] 40 mg PO BID #60 tablet. 11/25/17 Thiamine [Vitamin B1 Tab] 100 mg PO DAILY #30 tab 11/25/17 Levetiracetam [Keppra] 500 mg PO BID #60 tablet 12/04/17 Omeprazole Magnesium [Prilosec Otc] 20 mg PO DAILY #30 tab 12/04/17 - Allergies Allergies/Adverse Reactions: Allergies Allergy/AdvReac Type Severity Reaction Status Date / Time aspirin Allergy NAUSEA Verified 12/09/17 10:56 ibuprofen [From Motrin] Allergy NAUSEA Verified 12/09/17 10:56 naproxen Allergy RASH Verified 12/09/17 10:56 NSAIDS (Non-Steroidal Allergy NAUSEA Verified 12/09/17 10:56 Anti-Inflamma Review of Systems ROS Statement: Except As Marked, All Systems Reviewed And Found Negative Constitutional: Negative for: Fever Cardiovascular: Negative for: Chest Pain Neurological: Positive for: Other (ETOH) Physical Exam - Reviewed Nursing Documentation Reviewed: Yes Vital Signs Reviewed: Yes - Physical Exam Appears: Positive for: Well, Non-toxic, No Acute Distress Skin: Positive for: Normal Color. Negative for: Rash Eye Exam: Positive for: Normal appearance Cardiovascular/Chest: Positive for: Regular Rate, Rhythm Respiratory: Positive for: Normal Breath Sounds Neurologic/Psych: Positive for: Alert, Oriented, Gait (steady) - ECG O2 Sat by Pulse Oximetry: 100 Pulse Ox Interpretation: Normal Medical Decision Making Medical Decision Makin-year-old male with alcohol abuse and seizure disorder. 1 g Keppra given PO. Patient advised to follow up as soon as possible with neurologist and fill prescription for Keppra that he already has at home. Disposition - Clinical Impression Clinical Impression: Seizure disorder - Patient ED Disposition Is Patient to be Admitted: No - Disposition Referrals: French Kaur MD [Staff Provider] - Disposition: Routine/Home Disposition Time: 15:34 Condition: STABLE Additional Instructions: FOLLOW UP SOON POSSIBLE WITH NEUROLOGIST. FILL RX FOR YOUR SEIZURE MEDS. Instructions: Seizures, Adult (DC) Forms: [employer] (Lao)
[2017-12-12 15:51] VITALS: BP 130/81; RESP 18; TEMP 98
== END 2017-12-12 15:51 | disposition home or self-care (01) ==
LOC: H.ER 15:15
DX: Z76.0 Encounter for issue of repeat prescription (principal); G40.909 Epilepsy, unspecified, not intractable, without status epilepticus

== ENCOUNTER 2017-12-14 00:57 | Emergency (ER) | payer MEDICAID ==
[2017-12-14 00:57] VITALS: BMI 23.7
[2017-12-14 01:04] VITALS: BP 138/86; PULSE 89; RESP 16; TEMP 98.9; O2SAT 98
--- NOTE | 2017-12-14 01:15 | ED PDOC ---
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 Patient did not take any otc medications. States he was seen in ED prior but does not feel he was evaluated properly.) Past Medical History Reviewed: Historical Data, Nursing Documentation, Vital Signs Vital Signs: Last Vital Signs Temp 98.9 F 12/14/17 01:00 Pulse 89 12/14/17 01:00 Resp 16 12/14/17 01:00 BP 138/86 12/14/17 01:00 Pulse Ox 98 12/14/17 01:00 - Medical History PMH: Anemia, Anxiety, Back Problems (herniated disc), Deep Vein Thrombosis, Fractures (rib fx, left shoulder, Left hand 5th digit, Humerus fracture), Gastritis, Seizures (? due to alcohol withdrawal), Chronic Pain (left shoulder) Denies: HIV, Chronic Kidney Disease - Surgical History Surgical History: Endoscopy - Family History Family History: States: Unknown Family Hx - Immunization History Hx Tetanus Toxoid Vaccination: Yes Hx Influenza Vaccination: Yes Hx Pneumococcal Vaccination: Yes - Home Medications Home Medications: Ambulatory Orders Medication Instructions Recorded levETIRAcetam [Keppra] 500 mg PO Q12H 10/25/17 Folic Acid 1 mg PO DAILY #30 tab 11/25/17 Omeprazole Magnesium [Prilosec Otc] 40 mg PO BID #60 tablet. 11/25/17 Thiamine [Vitamin B1 Tab] 100 mg PO DAILY #30 tab 11/25/17 Levetiracetam [Keppra] 500 mg PO BID #60 tablet 12/04/17 Omeprazole Magnesium [Prilosec Otc] 20 mg PO DAILY #30 tab 12/04/17 - Allergies Allergies/Adverse Reactions: Allergies Allergy/AdvReac Type Severity Reaction Status Date / Time aspirin Allergy NAUSEA Verified 12/13/17 19:51 ibuprofen [From Motrin] Allergy NAUSEA Verified 12/13/17 19:51 naproxen Allergy RASH Verified 12/13/17 19:51 NSAIDS (Non-Steroidal Allergy NAUSEA Verified 12/13/17 19:51 Anti-Inflamma Review of Systems ROS Statement: Except As Marked, All Systems Reviewed And Found Negative Physical Exam - Reviewed Nursing Documentation Reviewed: Yes Vital Signs Reviewed: Yes - Physical Exam Appears: Positive for: Well, Non-toxic, No Acute Distress Head Exam: Positive for: ATRAUMATIC, NORMAL INSPECTION, NORMOCEPHALIC Skin: Positive for: Normal Color, Warm, DRY Eye Exam: Positive for: EOMI, Normal appearance, PERRL ENT: Positive for: Normal ENT Inspection Neck: Positive for: Normal, Painless ROM Cardiovascular/Chest: Positive for: Regular Rate, Rhythm Respiratory: Positive for: CNT, Normal Breath Sounds Gastrointestinal/Abdominal: Positive for: Normal Exam, Soft Back: Positive for: Normal Inspection, Other (No ecchymosis/swelling noted. Nontender spine. nontender paralumbar region.) Extremity: Positive for: Normal ROM Neurologic/Psych: Positive for: Alert, Oriented - ECG O2 Sat by Pulse Oximetry: 98 - Progress ED Course And Treament: Patient comfortable in ED, watching TV. Disposition - Clinical Impression Clinical Impression: Back pain - Patient ED Disposition Is Patient to be Admitted: No - Disposition Referrals: [facility] [Outside] Disposition: Routine/Home Disposition Time: 01:14 Condition: FAIR Instructions: Lumbar Muscle Strain (DC)
== END 2017-12-14 01:15 | disposition home or self-care (01) ==
LOC: H.ER 00:57
DX: M54.9 Dorsalgia, unspecified (principal); W22.8XXA Striking against or struck by other objects, initial encounter; Y99.0 Civilian activity done for income or pay; Z88.6 Allergy status to analgesic agent

== ENCOUNTER 2017-12-14 19:56 | Emergency (ER) | payer MEDICAID ==
[2017-12-14 19:56] VITALS: BMI 23.7
== END 2017-12-14 21:45 | disposition left against medical advice (07) ==
LOC: H.ER 19:56
DX: Z02.89 Encounter for other administrative examinations (principal)

== ENCOUNTER 2017-12-14 23:06 | Emergency (ER) | payer MEDICAID ==
[2017-12-14 23:06] VITALS: BMI 23.7
[2017-12-14 23:11] VITALS: BP 120/68; PULSE 80; RESP 18; TEMP 98.2; O2SAT 99
--- NOTE | 2017-12-15 00:15 | ED PDOC ---
HPI: Seizure Time Seen by Provider: 12/15/17 00:00 Chief Complaint (Nursing): Seizure Chief Complaint (Provider): seizure History Per: Patient History/Exam Limitations: intoxication Additional Complaint(s): 52 y/o male presents for evaluation of seizure prior to arrival. 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 Denies head injury, tongue biting, headache, dizziness, nausea/ vomiting, chest pain, neck/back pain, urine/bowel incontinence Patient appears intoxicated Past Medical History Reviewed: Historical Data, Nursing Documentation, Vital Signs Vital Signs: Last Vital Signs Temp 98.2 F 12/14/17 23:08 Pulse 80 12/14/17 23:08 Resp 18 12/14/17 23:08 BP 120/68 12/14/17 23:08 Pulse Ox 99 12/15/17 00:15 - Medical History PMH: Anemia, Anxiety, Back Problems (herniated disc), Deep Vein Thrombosis, Fractures (rib fx, left shoulder, Left hand 5th digit, Humerus fracture), Gastritis, Seizures (? due to alcohol withdrawal), Chronic Pain (left shoulder) Denies: HIV, Chronic Kidney Disease - Surgical History Surgical History: Endoscopy - Family History Family History: States: Unknown Family Hx - Immunization History Hx Tetanus Toxoid Vaccination: Yes Hx Influenza Vaccination: Yes Hx Pneumococcal Vaccination: Yes - Home Medications Home Medications: Ambulatory Orders Medication Instructions Recorded levETIRAcetam [Keppra] 500 mg PO Q12H 10/25/17 Folic Acid 1 mg PO DAILY #30 tab 11/25/17 Omeprazole Magnesium [Prilosec Otc] 40 mg PO BID #60 tablet. 11/25/17 Thiamine [Vitamin B1 Tab] 100 mg PO DAILY #30 tab 11/25/17 Levetiracetam [Keppra] 500 mg PO BID #60 tablet 12/04/17 Omeprazole Magnesium [Prilosec Otc] 20 mg PO DAILY #30 tab 12/04/17 - Allergies Allergies/Adverse Reactions: Allergies Allergy/AdvReac Type Severity Reaction Status Date / Time aspirin Allergy NAUSEA Verified 12/14/17 23:08 ibuprofen [From Motrin] Allergy NAUSEA Verified 12/14/17 23:08 naproxen Allergy RASH Verified 12/14/17 23:08 NSAIDS (Non-Steroidal Allergy NAUSEA Verified 12/14/17 23:08 Anti-Inflamma Review of Systems ROS Statement: Except As Marked, All Systems Reviewed And Found Negative Neurological: Positive for: Seizures Physical Exam - Reviewed Nursing Documentation Reviewed: Yes Vital Signs Reviewed: Yes - Physical Exam Appears: Positive for: Well, Non-toxic, No Acute Distress Head Exam: Positive for: ATRAUMATIC, NORMAL INSPECTION, NORMOCEPHALIC Skin: Positive for: Normal Color Eye Exam: Positive for: Normal appearance ENT: Positive for: Normal ENT Inspection Cardiovascular/Chest: Positive for: Regular Rate, Rhythm Respiratory: Positive for: Normal Breath Sounds Gastrointestinal/Abdominal: Positive for: Normal Exam Back: Positive for: Normal Inspection Extremity: Positive for: Normal ROM Neurologic/Psych: Positive for: Alert, Oriented - Laboratory Results Result Diagrams: 12/15/17 00:20 12/15/17 00:20 - ECG O2 Sat by Pulse Oximetry: 99 - Progress ED Course And Treament: accucheck, labs 3:00 Patient awake, alert, oriented x3; ambulating steady gait Stable for discharge Advised follow up PMD/neuro Return precautions given Disposition - Clinical Impression Clinical Impression: Recurrent seizures, Alcohol intoxication - Patient ED Disposition Is Patient to be Admitted: No Counseled Patient/Family Regarding: Studies Performed, Diagnosis, Need For Followup - Disposition Referrals: Elvin Curry MD [Primary Care Provider] - Disposition: Routine/Home Disposition Time: 03:18 Condition: IMPROVED Instructions: Seizures, Alcohol Abuse and Alcoholism (DC)
[2017-12-15 00:31] LABS: BASO # 0.1 K/uL (0.0-0.2); EOS # 0.2 K/uL (0.0-0.7); EOS % 6.1 % (0.0-4.0); HEMOGLOBIN 8.9 g/dL (12.0-18.0); LYMPH # 1.3 K/uL (1.0-4.3); LYMPH % 34.9 % (20.0-40.0); MEAN CELL VOLUME 87.8 fl (80.0-94.0); MEAN PLATELET VOLUME 7.3 fl (7.2-11.7); MONO # 0.5 K/uL (0.0-0.8); MONO % 12.9 % (0.0-10.0); NEUT # 1.6 K/uL (1.8-7.0); NEUT % 43.1 % (50.0-75.0); RBC 3.08 Mil/uL (4.40-5.90); RED CELL DISTRIBUTION WIDTH 21.1 % (11.5-14.5); WHITE BLOOD COUNT 3.8 K/uL (4.8-10.8)
[2017-12-15 00:42] LABS: ALB/GLOB RATIO 0.7 (1.0-2.1); ALBUMIN 3.2 g/dL (3.5-5.0); ALT/SGPT 48 U/L (21-72); AST/SGOT 132 U/L (17-59); BLOOD UREA NITROGEN 16 mg/dl (9-20); GFR AFRICAN-AMERICAN > 60; GFR NON-AFRICAN AMERICAN > 60
== END 2017-12-15 03:28 | disposition home or self-care (01) ==
LOC: H.ER 23:06
DX: F10.129 Alcohol abuse with intoxication, unspecified (principal); G40.909 Epilepsy, unspecified, not intractable, without status epilepticus

== ENCOUNTER 2017-12-16 01:43 | Emergency (ER) | payer MEDICAID ==
[2017-12-16 01:43] VITALS: BMI 23.7
[2017-12-16 02:03] VITALS: RESP 18
--- NOTE | 2017-12-16 04:47 | ED PDOC ---
HPI: Seizure Time Seen by Provider: 12/16/17 04:29 Chief Complaint (Nursing): Seizure Chief Complaint (Provider): Seizure History Per: Patient History/Exam Limitations: no limitations Additional Complaint(s): 52 year old male with a hx of seizure disorder, and well known to the ED, presents stating he had a seizure while watching tv at home earlier, witnessed by his brother. Patient admits to not taking his Keppra for the past two days because he "lost it." He denies significant alcohol consumption and drug use. PMD: none provided Past Medical History Reviewed: Historical Data, Nursing Documentation, Vital Signs Vital Signs: Last Vital Signs Temp 98.2 F 12/16/17 03:59 Pulse 84 12/16/17 03:59 Resp 18 12/16/17 03:59 BP 122/75 12/16/17 03:59 Pulse Ox 98 12/16/17 04:51 - Medical History PMH: Anemia, Anxiety, Back Problems (herniated disc), Deep Vein Thrombosis, Fractures (rib fx, left shoulder, Left hand 5th digit, Humerus fracture), Gastritis, Seizures (? due to alcohol withdrawal), Chronic Pain (left shoulder) Denies: HIV, Chronic Kidney Disease - Surgical History Surgical History: Endoscopy - Family History Family History: States: Unknown Family Hx - Social History Current smoker - smoking cessation education provided: Yes Alcohol: Social Drugs: Denies - Immunization History Hx Tetanus Toxoid Vaccination: Yes Hx Influenza Vaccination: Yes Hx Pneumococcal Vaccination: Yes - Home Medications Home Medications: Ambulatory Orders Medication Instructions Recorded levETIRAcetam [Keppra] 500 mg PO Q12H 10/25/17 Folic Acid 1 mg PO DAILY #30 tab 11/25/17 Omeprazole Magnesium [Prilosec Otc] 40 mg PO BID #60 tablet. 11/25/17 Thiamine [Vitamin B1 Tab] 100 mg PO DAILY #30 tab 11/25/17 Levetiracetam [Keppra] 500 mg PO BID #60 tablet 12/04/17 Omeprazole Magnesium [Prilosec Otc] 20 mg PO DAILY #30 tab 12/04/17 levETIRAcetam [Keppra] 500 mg PO BID #30 tab 12/16/17 - Allergies Allergies/Adverse Reactions: Allergies Allergy/AdvReac Type Severity Reaction Status Date / Time aspirin Allergy NAUSEA Verified 12/14/17 23:08 ibuprofen [From Motrin] Allergy NAUSEA Verified 12/14/17 23:08 naproxen Allergy RASH Verified 12/14/17 23:08 NSAIDS (Non-Steroidal Allergy NAUSEA Verified 12/14/17 23:08 Anti-Inflamma Review of Systems ROS Statement: Except As Marked, All Systems Reviewed And Found Negative Neurological: Positive for: Seizures Physical Exam - Reviewed Nursing Documentation Reviewed: Yes Vital Signs Reviewed: Yes - Physical Exam Appears: Positive for: No Acute Distress (sleeping, appears disheveled) Head Exam: Positive for: ATRAUMATIC, NORMOCEPHALIC Skin: Positive for: Normal Color, Warm, Dry Eye Exam: Positive for: Normal appearance, EOMI, PERRL ENT: Positive for: Normal ENT Inspection Neck: Positive for: Normal, Painless ROM, Supple Cardiovascular/Chest: Positive for: Regular Rate, Rhythm. Negative for: Murmur Respiratory: Positive for: Normal Breath Sounds. Negative for: Accessory Muscle Use, Respiratory Distress Gastrointestinal/Abdominal: Positive for: Normal Exam, Soft. Negative for: Tenderness Back: Positive for: Normal Inspection. Negative for: L CVA Tenderness, R CVA Tenderness, Vertebral Tenderness Extremity: Positive for: Normal ROM. 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 Negative for: Motor/Sensory Deficits, Aphasia, Facial Droop - ECG O2 Sat by Pulse Oximetry: 98 (RA) Pulse Ox Interpretation: Normal Medical Decision Making Medical Decision Making: A/P Patient with hx of seizure disorder presenting with a seizure -no seizure activity witnessed in ED -has normal vitals and normal exam -will provide Keppra and monitor for further seizure activity 600 No seizure activity witness in the ED. Will prescribe patient's keppra given he lost his medication. Advised patient to followup with neurologist. Scribe Attestation: Documented by Meryl Mahoney, acting as a scribe for Murphy Chiu MD. Provider Scribe Attestation: All medical entries made by the Scribe were at my direction and personally dictated by me. I have reviewed the chart and agree that the record accurately reflects my personal performance of the history, physical exam, medical decision making, and the department course for this patient. I have also personally directed, reviewed, and agree with the discharge instructions and disposition. Disposition - Clinical Impression Clinical Impression: Seizure disorder - Patient ED Disposition Is Patient to be Admitted: No - Disposition Referrals: [facility] [Outside] Disposition: Routine/Home Disposition Time: 05:50 Condition: STABLE Prescriptions: levETIRAcetam [Keppra] 500 mg PO BID #30 tab Instructions: Seizures, Adult (DC) Forms: [employer] (Moroccan)
[2017-12-16 06:31] VITALS: BP 119/69; PULSE 82; TEMP 98; O2SAT 99
== END 2017-12-16 06:21 | disposition home or self-care (01) ==
LOC: H.ER 01:43
DX: G40.909 Epilepsy, unspecified, not intractable, without status epilepticus (principal)

== ENCOUNTER 2017-12-16 20:55 | Emergency (ER) | payer MEDICAID ==
[2017-12-16 20:55] VITALS: BMI 23.7
[2017-12-16 21:09] VITALS: BP 131/71; PULSE 102; RESP 18; TEMP 98.2; O2SAT 98
--- NOTE | 2017-12-16 22:03 | ED PDOC ---
HPI: General Adult Time Seen by Provider: 12/16/17 21:11 Chief Complaint (Nursing): Seizure Chief Complaint (Provider): "I had a seizure at my sisters house" History Per: Patient History/Exam Limitations: no limitations Have you had recent travel within the past 21 days to any of the following countries: [place], [place], [place] or [place]?: No Current Symptoms Are (Timing): Better Additional Complaint(s): 52 yo male with history of alcohol abuse and seizure disorder presents after having a seizure. Pt reports not taking keppra the last few days. Past Medical History Reviewed: Historical Data, Nursing Documentation, Vital Signs Vital Signs: Last Vital Signs Temp 98.2 F 12/16/17 20:59 Pulse 102 H 12/16/17 20:59 Resp 18 12/16/17 20:59 BP 131/71 12/16/17 20:59 Pulse Ox 98 12/16/17 23:51 - Medical History PMH: Anemia, Anxiety, Back Problems (herniated disc), Deep Vein Thrombosis, Fractures (rib fx, left shoulder, Left hand 5th digit, Humerus fracture), Gastritis, Seizures (? due to alcohol withdrawal), Chronic Pain (left shoulder) Denies: HIV, Chronic Kidney Disease - Surgical History Surgical History: Endoscopy - Family History Family History: States: Unknown Family Hx - Immunization History Hx Tetanus Toxoid Vaccination: Yes Hx Influenza Vaccination: Yes Hx Pneumococcal Vaccination: Yes - Home Medications Home Medications: Ambulatory Orders Medication Instructions Recorded levETIRAcetam [Keppra] 500 mg PO Q12H 10/25/17 Folic Acid 1 mg PO DAILY #30 tab 11/25/17 Omeprazole Magnesium [Prilosec Otc] 40 mg PO BID #60 tablet. 11/25/17 Thiamine [Vitamin B1 Tab] 100 mg PO DAILY #30 tab 11/25/17 Levetiracetam [Keppra] 500 mg PO BID #60 tablet 12/04/17 Omeprazole Magnesium [Prilosec Otc] 20 mg PO DAILY #30 tab 12/04/17 levETIRAcetam [Keppra] 500 mg PO BID #30 tab 12/16/17 - Allergies Allergies/Adverse Reactions: Allergies Allergy/AdvReac Type Severity Reaction Status Date / Time aspirin Allergy NAUSEA Verified 12/14/17 23:08 ibuprofen [From Motrin] Allergy NAUSEA Verified 12/14/17 23:08 naproxen Allergy RASH Verified 12/14/17 23:08 NSAIDS (Non-Steroidal Allergy NAUSEA Verified 12/14/17 23:08 Anti-Inflamma Review of Systems ROS Statement: Except As Marked, All Systems Reviewed And Found Negative Constitutional: Negative for: Fever Neurological: Positive for: Seizures Psych: Negative for: Suicidal ideation, Withdrawal Physical Exam - Reviewed Nursing Documentation Reviewed: Yes Vital Signs Reviewed: Yes - Physical Exam Appears: Positive for: Well, Non-toxic, No Acute Distress Head Exam: Positive for: ATRAUMATIC, NORMAL INSPECTION, NORMOCEPHALIC Skin: Positive for: Normal Color, Warm, DRY Eye Exam: Positive for: Normal appearance, EOMI, PERRL ENT: Positive for: Normal ENT Inspection Neck: Positive for: Normal, Painless ROM Cardiovascular/Chest: Positive for: Regular Rate, Rhythm Respiratory: Positive for: CNT, Normal Breath Sounds Back: Positive for: Normal Inspection Extremity: Positive for: Normal ROM Neurologic/Psych: Positive for: Alert, Oriented - ECG O2 Sat by Pulse Oximetry: 98 Medical Decision Making Medical Decision Makin - Pt ambulates to restroom. Disposition - Clinical Impression Clinical Impression: Seizure disorder, Malingerer [conscious simulation] - Patient ED Disposition Is Patient to be Admitted: No - Disposition Disposition: Routine/Home Disposition Time: 23:51 Condition: GOOD Instructions: Seizures, Adult (DC) Forms: [employer] ([place])
== END 2017-12-17 00:11 | disposition home or self-care (01) ==
LOC: H.ER 20:55
DX: G40.909 Epilepsy, unspecified, not intractable, without status epilepticus (principal); Z76.5 Malingerer [conscious simulation]

== ENCOUNTER 2017-12-17 18:48 | Emergency (ER) | payer MEDICAID ==
[2017-12-17 18:49] VITALS: BMI 23.7
[2017-12-17 19:03] VITALS: BP 122/64; PULSE 100; RESP 18; TEMP 98.1; O2SAT 99
--- NOTE | 2017-12-17 19:13 | ED PDOC ---
HPI: General Adult Time Seen by Provider: 12/17/17 19:11 Chief Complaint (Nursing): Med Refill Chief Complaint (Provider): MED REFILL History Per: Patient (52 Y/O MALE H/O SEIZURE STATES HE HAD SEIZURE EARLIER TODAY. REQUESTS REFILL OF KEPPRA. ) Past Medical History Reviewed: Historical Data, Nursing Documentation, Vital Signs Vital Signs: Last Vital Signs Temp 98.1 F 12/17/17 18:59 Pulse 100 H 12/17/17 18:59 Resp 18 12/17/17 18:59 BP 122/64 12/17/17 18:59 Pulse Ox 99 12/17/17 19:15 - Medical History PMH: Anemia, Anxiety, Back Problems (herniated disc), Deep Vein Thrombosis, Fractures (rib fx, left shoulder, Left hand 5th digit, Humerus fracture), Gastritis, Seizures (? due to alcohol withdrawal), Chronic Pain (left shoulder) Denies: HIV, Chronic Kidney Disease - Surgical History Surgical History: Endoscopy - Family History Family History: States: Unknown Family Hx - Immunization History Hx Tetanus Toxoid Vaccination: Yes Hx Influenza Vaccination: Yes Hx Pneumococcal Vaccination: Yes - Home Medications Home Medications: Ambulatory Orders Medication Instructions Recorded levETIRAcetam [Keppra] 500 mg PO Q12H 10/25/17 Folic Acid 1 mg PO DAILY #30 tab 11/25/17 Omeprazole Magnesium [Prilosec Otc] 40 mg PO BID #60 tablet. 11/25/17 Thiamine [Vitamin B1 Tab] 100 mg PO DAILY #30 tab 11/25/17 Levetiracetam [Keppra] 500 mg PO BID #60 tablet 12/04/17 Omeprazole Magnesium [Prilosec Otc] 20 mg PO DAILY #30 tab 12/04/17 levETIRAcetam [Keppra] 500 mg PO BID #30 tab 12/16/17 Levetiracetam [Keppra] 500 mg PO BID #30 tablet 12/17/17 - Allergies Allergies/Adverse Reactions: Allergies Allergy/AdvReac Type Severity Reaction Status Date / Time aspirin Allergy NAUSEA Verified 12/14/17 23:08 ibuprofen [From Motrin] Allergy NAUSEA Verified 12/14/17 23:08 naproxen Allergy RASH Verified 12/14/17 23:08 NSAIDS (Non-Steroidal Allergy NAUSEA Verified 12/14/17 23:08 Anti-Inflamma Review of Systems ROS Statement: Except As Marked, All Systems Reviewed And Found Negative Physical Exam - Reviewed Nursing Documentation Reviewed: Yes Vital Signs Reviewed: Yes - Physical Exam Appears: Positive for: Well, Non-toxic, No Acute Distress Head Exam: Positive for: ATRAUMATIC, NORMAL INSPECTION, NORMOCEPHALIC Skin: Positive for: Normal Color, Warm, DRY Eye Exam: Positive for: EOMI, Normal appearance, PERRL ENT: Positive for: Normal ENT Inspection Neck: Positive for: Normal, Painless ROM Cardiovascular/Chest: Positive for: Regular Rate, Rhythm Respiratory: Positive for: CNT, Normal Breath Sounds Gastrointestinal/Abdominal: Positive for: Normal Exam, Soft Back: Positive for: Normal Inspection Extremity: Positive for: Normal ROM Neurologic/Psych: Positive for: Alert, Oriented - ECG O2 Sat by Pulse Oximetry: 99 - Progress ED Course And Treament: KEPPRA 500MG X 1 DOSE ORDERED. PATIENT LEFT WITHOUT DOSE Disposition - Clinical Impression Clinical Impression: Medication refill - Patient ED Disposition Is Patient to be Admitted: No - Disposition Referrals: [facility] [Outside] Disposition: Routine/Home Disposition Time: 19:12 Condition: FAIR Prescriptions: Levetiracetam [Keppra] 500 mg PO BID #30 tablet Instructions: Where to Get Help Paying for Your Prescriptions
== END 2017-12-17 19:36 | disposition home or self-care (01) ==
LOC: H.ER 18:48
DX: Z76.0 Encounter for issue of repeat prescription (principal)

== ENCOUNTER 2017-12-18 12:08 | Emergency (ER) | payer MEDICAID ==
[2017-12-18 12:08] VITALS: BMI 23.7
[2017-12-18 12:20] VITALS: BP 126/86; PULSE 90; RESP 16; O2SAT 96
--- NOTE | 2017-12-18 12:47 | ED PDOC ---
HPI: General Adult Time Seen by Provider: 12/18/17 12:22 Chief Complaint (Nursing): Med Refill Chief Complaint (Provider): KEPPRA REFILL History Per: Patient (52 Y/O MALE H/O SEIZURE LEFT YESTERDAY FROM ED WITHOUT PAPERWORK AND KEPPRA MEDICATION. DENIES ANY COMPLAINTS. ) Past Medical History Reviewed: Historical Data, Nursing Documentation, Vital Signs Vital Signs: Last Vital Signs Temp 99.0 F 12/18/17 12:18 Pulse 90 12/18/17 12:18 Resp 16 12/18/17 12:18 BP 126/86 12/18/17 12:18 Pulse Ox 96 12/18/17 12:18 - Medical History PMH: Anemia, Anxiety, Back Problems (herniated disc), Deep Vein Thrombosis, Fractures (rib fx, left shoulder, Left hand 5th digit, Humerus fracture), Gastritis, Seizures (? due to alcohol withdrawal), Chronic Pain (left shoulder) Denies: HIV, Chronic Kidney Disease - Surgical History Surgical History: Endoscopy - Family History Family History: States: Unknown Family Hx - Immunization History Hx Tetanus Toxoid Vaccination: Yes Hx Influenza Vaccination: Yes Hx Pneumococcal Vaccination: Yes - Home Medications Home Medications: Ambulatory Orders Medication Instructions Recorded levETIRAcetam [Keppra] 500 mg PO Q12H 10/25/17 Folic Acid 1 mg PO DAILY #30 tab 11/25/17 Omeprazole Magnesium [Prilosec Otc] 40 mg PO BID #60 tablet. 11/25/17 Thiamine [Vitamin B1 Tab] 100 mg PO DAILY #30 tab 11/25/17 Levetiracetam [Keppra] 500 mg PO BID #60 tablet 12/04/17 Omeprazole Magnesium [Prilosec Otc] 20 mg PO DAILY #30 tab 12/04/17 levETIRAcetam [Keppra] 500 mg PO BID #30 tab 12/16/17 Levetiracetam [Keppra] 500 mg PO BID #30 tablet 12/17/17 Levetiracetam [Keppra] 500 mg PO BID #60 tablet 12/18/17 - Allergies Allergies/Adverse Reactions: Allergies Allergy/AdvReac Type Severity Reaction Status Date / Time aspirin Allergy NAUSEA Verified 12/18/17 12:17 ibuprofen [From Motrin] Allergy NAUSEA Verified 06/30/18 12:17 naproxen Allergy RASH Verified 12/18/17 12:17 NSAIDS (Non-Steroidal Allergy NAUSEA Verified 12/18/17 12:17 Anti-Inflamma Review of Systems ROS Statement: Except As Marked, All Systems Reviewed And Found Negative Physical Exam - Reviewed Nursing Documentation Reviewed: Yes Vital Signs Reviewed: Yes - Physical Exam Appears: Positive for: Well, Non-toxic, No Acute Distress Head Exam: Positive for: ATRAUMATIC, NORMAL INSPECTION, NORMOCEPHALIC Skin: Positive for: Normal Color, Warm, DRY Eye Exam: Positive for: EOMI, Normal appearance, PERRL ENT: Positive for: Normal ENT Inspection Neck: Positive for: Normal, Painless ROM Cardiovascular/Chest: Positive for: Regular Rate, Rhythm Respiratory: Positive for: CNT, Normal Breath Sounds Gastrointestinal/Abdominal: Positive for: Normal Exam, Soft Back: Positive for: Normal Inspection Extremity: Positive for: Normal ROM Neurologic/Psych: Positive for: Alert, Oriented - ECG O2 Sat by Pulse Oximetry: 96 - Progress ED Course And Treament: KEPPRA 500MG X 1 DOSE Disposition - Clinical Impression Clinical Impression: Medication refill - Patient ED Disposition Is Patient to be Admitted: No - Disposition Disposition: Routine/Home Disposition Time: 12:23 Condition: FAIR Prescriptions: Levetiracetam [Keppra] 500 mg PO BID #60 tablet Instructions: Where to Get Help Paying for Your Prescriptions
[2017-12-18 12:56] VITALS: TEMP 99
== END 2017-12-18 12:58 | disposition home or self-care (01) ==
LOC: H.ER 12:08
DX: Z76.0 Encounter for issue of repeat prescription (principal)

== ENCOUNTER 2017-12-18 20:22 | Emergency (ER) | payer MEDICAID ==
[2017-12-18 20:22] VITALS: BMI 23.7
--- NOTE | 2017-12-18 21:13 | ED PDOC ---
HPI: General Adult Time Seen by Provider: 12/18/17 20:31 Chief Complaint (Nursing): Seizure Chief Complaint (Provider): Seizure History Per: Patient History/Exam Limitations: no limitations Additional Complaint(s): 52 yo male with history of alcohol abuse (which patient denies) and seizure disorder. PT states he was at his sisters house and he ambulated to the ER for evaluation after seizure. Pt states that his [id number] wanted him to come. Pt seen in ER at noon and given dose of keppra. PT states that he normally takes 1500mg twice a day. Pt was given 500mg today. Pt denies drinking however smells of alcohol. Pt also states that he never drinks and has denied drinking on multiple visits when alcohol level has been elevated. Past Medical History Reviewed: Historical Data, Nursing Documentation, Vital Signs Vital Signs: Last Vital Signs Temp 98.7 F 12/18/17 20:33 Pulse 103 H 12/18/17 20:33 Resp 16 12/18/17 20:33 BP 113/60 12/18/17 20:33 Pulse Ox 96 12/18/17 20:33 - Medical History PMH: Anemia, Anxiety, Back Problems (herniated disc), Deep Vein Thrombosis, Fractures (rib fx, left shoulder, Left hand 5th digit, Humerus fracture), Gastritis, Seizures (? due to alcohol withdrawal), Chronic Pain (left shoulder) Denies: HIV, Chronic Kidney Disease - Surgical History Surgical History: Endoscopy - Family History Family History: States: Unknown Family Hx - Immunization History Hx Tetanus Toxoid Vaccination: Yes Hx Influenza Vaccination: Yes Hx Pneumococcal Vaccination: Yes - Home Medications Home Medications: Ambulatory Orders Medication Instructions Recorded levETIRAcetam [Keppra] 500 mg PO Q12H 10/25/17 Folic Acid 1 mg PO DAILY #30 tab 11/25/17 Omeprazole Magnesium [Prilosec Otc] 40 mg PO BID #60 tablet. 11/25/17 Thiamine [Vitamin B1 Tab] 100 mg PO DAILY #30 tab 11/25/17 Levetiracetam [Keppra] 500 mg PO BID #60 tablet 12/04/17 Omeprazole Magnesium [Prilosec Otc] 20 mg PO DAILY #30 tab 12/04/17 levETIRAcetam [Keppra] 500 mg PO BID #30 tab 12/16/17 Levetiracetam [Keppra] 500 mg PO BID #30 tablet 12/17/17 Levetiracetam [Keppra] 500 mg PO BID #60 tablet 12/18/17 - Allergies Allergies/Adverse Reactions: Allergies Allergy/AdvReac Type Severity Reaction Status Date / Time aspirin Allergy NAUSEA Verified 12/18/17 20:32 ibuprofen [From Motrin] Allergy NAUSEA Verified 12/18/17 20:32 naproxen Allergy RASH Verified 12/18/17 20:32 NSAIDS (Non-Steroidal Allergy NAUSEA Verified 12/18/17 20:32 Anti-Inflamma Review of Systems ROS Statement: Except As Marked, All Systems Reviewed And Found Negative Constitutional: Negative for: Fever, Chills Gastrointestinal: Negative for: Nausea, Vomiting, Abdominal Pain Genitourinary Male: Negative for: Dysuria, Frequency Neurological: Positive for: Seizures. Negative for: Altered Mental Status, Headache, Dizziness Physical Exam - Reviewed Nursing Documentation Reviewed: Yes Vital Signs Reviewed: Yes - Physical Exam Appears: Positive for: Well, Non-toxic, No Acute Distress Head Exam: Positive for: ATRAUMATIC, NORMAL INSPECTION, NORMOCEPHALIC Skin: Positive for: Normal Color, Warm, DRY Eye Exam: Positive for: EOMI, Normal appearance, PERRL ENT: Positive for: Normal ENT Inspection Neck: Positive for: Normal, Painless ROM Cardiovascular/Chest: Positive for: Regular Rate, Rhythm Respiratory: Positive for: CNT, Normal Breath Sounds Back: Positive for: Normal Inspection Extremity: Positive for: Normal ROM Neurologic/Psych: Positive for: Alert, Oriented - ECG O2 Sat by Pulse Oximetry: 96 Medical Decision Making Medical Decision Making: Pt requests remote control for TV, food and the curtain to be closed. AccuCheck normal. Keppra given in ER. 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
[2017-12-19 04:17] VITALS: BP 99/46; PULSE 82; RESP 16; TEMP 98.4; O2SAT 96
== END 2017-12-19 04:40 | disposition home or self-care (01) ==
LOC: H.ER 20:22
DX: Z76.5 Malingerer [conscious simulation] (principal); Z86.69 Personal history of other diseases of the nervous system and sense organs; Z86.718 Personal history of other venous thrombosis and embolism; Z88.6 Allergy status to analgesic agent

== ENCOUNTER 2017-12-19 14:51 | Emergency (ER) | payer MEDICAID ==
[2017-12-19 14:51] VITALS: BMI 23.7
[2017-12-19 15:01] VITALS: BP 120/65; PULSE 108; TEMP 98; O2SAT 97
[2017-12-19 15:03] VITALS: RESP 18
--- NOTE | 2017-12-19 15:20 | ED PDOC ---
HPI: Psych/Substance Abuse Time Seen by Provider: 12/19/17 15:07 Chief Complaint (Nursing): Medical Clearance Chief Complaint (Provider): Alcohol intoxication ED Caveat: Intoxicated History Per: Patient Additional Complaint(s): Patient is a 52 y/o male who presents to ED due to alcohol intoxication. He is requesting a dose of Keppra 500mg as well. He was seen in the ED twice yesterday and was given a prescription for Keppra, which has not yet filled. He is well known to the ED for alcohol abuse and visits ED almost daily. Patient has no physical complaints at this time. PMD: None provided Past Medical History Reviewed: Historical Data, Nursing Documentation, Vital Signs Vital Signs: Last Vital Signs Temp 98 F 12/19/17 15:01 Pulse 108 H 12/19/17 15:01 Resp 18 12/19/17 14:59 BP 120/65 12/19/17 15:01 Pulse Ox 97 12/19/17 15:01 - Medical History PMH: Anemia, Anxiety, Back Problems (herniated disc), Deep Vein Thrombosis, Fractures (rib fx, left shoulder, Left hand 5th digit, Humerus fracture), Gastritis, Seizures (? due to alcohol withdrawal), Chronic Pain (left shoulder) - Surgical History Surgical History: Endoscopy - Family History Family History: States: Unknown Family Hx - Social History Alcohol: > 2 Drinks/Day - Home Medications Home Medications: Ambulatory Orders Medication Instructions Recorded levETIRAcetam [Keppra] 500 mg PO Q12H 10/25/17 Folic Acid 1 mg PO DAILY #30 tab 11/25/17 Omeprazole Magnesium [Prilosec Otc] 40 mg PO BID #60 tablet. 11/25/17 Thiamine [Vitamin B1 Tab] 100 mg PO DAILY #30 tab 11/25/17 Levetiracetam [Keppra] 500 mg PO BID #60 tablet 12/04/17 Omeprazole Magnesium [Prilosec Otc] 20 mg PO DAILY #30 tab 12/04/17 levETIRAcetam [Keppra] 500 mg PO BID #30 tab 12/16/17 Levetiracetam [Keppra] 500 mg PO BID #30 tablet 12/17/17 Levetiracetam [Keppra] 500 mg PO BID #60 tablet 12/18/17 - Allergies Allergies/Adverse Reactions: Allergies Allergy/AdvReac Type Severity Reaction Status Date / Time aspirin Allergy NAUSEA Verified 12/18/17 20:32 ibuprofen [From Motrin] Allergy NAUSEA Verified 12/18/17 20:32 naproxen Allergy RASH Verified 12/18/17 20:32 NSAIDS (Non-Steroidal Allergy NAUSEA Verified 12/18/17 20:32 Anti-Inflamma Review of Systems ROS Statement: Except As Marked, All Systems Reviewed And Found Negative Constitutional: Negative for: Fever Physical Exam - Reviewed Nursing Documentation Reviewed: Yes Vital Signs Reviewed: Yes - Physical Exam Comments: GENERAL APPEARANCE: Patient is awake, alert, oriented x 3, in no acute distress. SKIN: Warm, dry; (-) cyanosis HEAD: (-) scalp swelling, (-) scalp tenderness. EYES: (-) conjunctival pallor, (-) scleral icterus, (-) nystagmus. HEART AND CARDIOVASCULAR: (-) irregularity; (-) murmur, (-) gallop. CHEST AND RESPIRATORY: (-) rales, (-) rhonchi, (-) wheezes; breath sounds equal. ABDOMEN: Soft, (-) distention, (-) tenderness, (-) guarding. NEURO AND PSYCH: Mental status as above. Slurred speech. Alcohol on breath. Staggered gait - ECG O2 Sat by Pulse Oximetry: 97 (RA) Pulse Ox Interpretation: Normal Medical Decision Making Medical Decision Making: Time: 15:10 Initial impression: Alcohol abuse and intoxication Initial plan: --Keppra 500mg --Accucheck --Alcohol serum --Await clinical sobriety --Re-evaluation Patient was found to have multiple bottles of vodka on him upon arrival in ED exam room. 1545 Accucheck 160. 1635 Alcohol Serum: 233. Patient ambulating with a steady gait in ED. Denies any physical complaints at present. Patient awake, alert, oriented x3. Patient stating he wants to leave ED and unwilling to wait for papers. Patient got dressed and ambulated out of ED without further incident. Diagnostic results d/w the patient in great detail. Dx of alcohol abuse with intoxication d/w the patient. Based on history, exam and diagnostic results plan will be for discharge and outpatient follow up. Advised to follow up with primary care physician/clinic in 1-2 days without fail. Advised to fill Rx for Keppra from prior ED visit. Return to the emergency room at any time for any new or worsening symptoms. Patient states he fully agrees with and understands discharge instructions. States that he agrees with the plan and disposition. Verbalized and repeated discharge instructions and plan. I have given the patient opportunity to ask any additional questions. Scribe Attestation: Documented by Raghu Salazar, acting as a scribe for Haydee Hayes PA-C Provider Scribe Attestation: All medical record entries made by the Scribe were at my direction and personally dictated by me. I have reviewed the chart and agree that the record accurately reflects my personal performance of the history, physical exam, medical decision making, and the department course for this patient. I have also personally directed, reviewed, and agree with the discharge instructions and disposition. Disposition - Clinical Impression Clinical Impression: Alcohol abuse with intoxication, History of seizure - Patient ED Disposition Is Patient to be Admitted: No Counseled Patient/Family Regarding: Diagnosis, Need For Followup - Disposition Referrals: [facility] [Outside] Disposition: Routine/Home Disposition Time: 16:35 Condition: FAIR Additional Instructions: FOLLOW UP WITH CLINIC IN 1-2 DAYS. RETURN TO ED WITH ANY NEW OR WORSENING SYMPTOMS. FILL KEPPRA RX FROM PRIOR ED VISIT. Instructions: Alcohol Abuse and Alcoholism (DC), Effects of Alcohol on Your Health Forms: [employer] (Turkmen) Print Language: UPPER SORBIAN - POA Present On Arrival: None Results - Lab Results Lab Results: 12/19/17 12/19/17 15:34 15:25 POC Glucose (mg/dL) 160 H Alcohol, Quantitative 233 H
== END 2017-12-19 16:35 | disposition home or self-care (01) ==
LOC: H.ER 14:51
DX: F10.129 Alcohol abuse with intoxication, unspecified (principal); R56.9 Unspecified convulsions; Z86.718 Personal history of other venous thrombosis and embolism; Z87.19 Personal history of other diseases of the digestive system; Z88.6 Allergy status to analgesic agent; G89.29 Other chronic pain

== ENCOUNTER 2017-12-20 01:45 | Emergency (ER) | payer MEDICAID ==
[2017-12-20 01:45] VITALS: BMI 23.7
[2017-12-20 02:03] VITALS: RESP 18
--- NOTE | 2017-12-20 02:18 | ED PDOC ---
HPI: Seizure Time Seen by Provider: 12/20/17 01:49 Chief Complaint (Nursing): Seizure Chief Complaint (Provider): unwitnessed seizure History Per: Patient History/Exam Limitations: no limitations Additional Complaint(s): Shreyas Sepulveda is a 52 year old male, with a past medical history of seizures, who was brought to the emergency department via EMS for unwitnessed seizures today. Patient is well known to provider and facility for multiple visits with similar complaints and bed seeking behavior. At present, he denies any physical complaints. PMD: None provided. Past Medical History Reviewed: Historical Data, Nursing Documentation, Vital Signs Vital Signs: Last Vital Signs Temp 98.6 F 12/20/17 02:00 Pulse 96 H 12/20/17 02:00 Resp 18 12/20/17 02:00 BP 122/66 12/20/17 02:00 Pulse Ox 98 12/20/17 02:24 - Medical History PMH: Anemia, Anxiety, Back Problems (herniated disc), Deep Vein Thrombosis, Fractures (rib fx, left shoulder, Left hand 5th digit, Humerus fracture), Gastritis, Seizures (? due to alcohol withdrawal), Chronic Pain (left shoulder) Denies: HIV, Chronic Kidney Disease - Surgical History Surgical History: Endoscopy - Family History Family History: States: Unknown Family Hx - Immunization History Hx Tetanus Toxoid Vaccination: Yes Hx Influenza Vaccination: Yes Hx Pneumococcal Vaccination: Yes - Home Medications Home Medications: Ambulatory Orders Medication Instructions Recorded levETIRAcetam [Keppra] 500 mg PO Q12H 10/25/17 Folic Acid 1 mg PO DAILY #30 tab 11/25/17 Omeprazole Magnesium [Prilosec Otc] 40 mg PO BID #60 tablet. 11/25/17 Thiamine [Vitamin B1 Tab] 100 mg PO DAILY #30 tab 11/25/17 Levetiracetam [Keppra] 500 mg PO BID #60 tablet 12/04/17 Omeprazole Magnesium [Prilosec Otc] 20 mg PO DAILY #30 tab 12/04/17 levETIRAcetam [Keppra] 500 mg PO BID #30 tab 12/16/17 Levetiracetam [Keppra] 500 mg PO BID #30 tablet 12/17/17 Levetiracetam [Keppra] 500 mg PO BID #60 tablet 12/18/17 - Allergies Allergies/Adverse Reactions: Allergies Allergy/AdvReac Type Severity Reaction Status Date / Time aspirin Allergy NAUSEA Verified 12/18/17 20:32 ibuprofen [From Motrin] Allergy NAUSEA Verified 12/18/17 20:32 naproxen Allergy RASH Verified 12/18/17 20:32 NSAIDS (Non-Steroidal Allergy NAUSEA Verified 12/18/17 20:32 Anti-Inflamma Review of Systems ROS Statement: Except As Marked, All Systems Reviewed And Found Negative Neurological: Positive for: Seizures (unwitnessed ) Physical Exam - Reviewed Nursing Documentation Reviewed: Yes Vital Signs Reviewed: Yes - Physical Exam Appears: Positive for: Non-toxic, No Acute Distress Head Exam: Positive for: ATRAUMATIC, NORMOCEPHALIC Skin: Positive for: Normal Color, Warm, Dry Eye Exam: Positive for: Normal appearance, EOMI, PERRL Neck: Positive for: Painless ROM, Supple Cardiovascular/Chest: Positive for: Regular Rate, Rhythm. Negative for: Murmur Respiratory: Positive for: Normal Breath Sounds. Negative for: Respiratory Distress Gastrointestinal/Abdominal: Positive for: Normal Exam, Soft. Negative for: Tenderness Back: Positive for: Normal Inspection. Negative for: L CVA Tenderness, R CVA Tenderness, Vertebral Tenderness Extremity: Positive for: Normal ROM (upper and lower extremities). Negative for : Deformity, Swelling Neurologic/Psych: Positive for: Alert, Oriented. Negative for: Motor/Sensory Deficits - ECG O2 Sat by Pulse Oximetry: 98 (RA) Pulse Ox Interpretation: Normal Medical Decision Making Medical Decision Making: Time: 01:49 Initial Impression: Malingering Initial Plan: 05:10 Upon provider reevaluation patient is feeling better, is medically stable, and requires no further treatment in the ED at this time. Patient will be discharged home and advised to follow up with PMD. Counseling was provided and all questions were answered regarding diagnosis. ----- Scribe Attestation: Documented by Giovany Puri, acting as a scribe for Olaf Beck Sikand, MD. Provider Scribe Attestation: All medical record entries made by the Scribe were at my direction and personally dictated by me. I have reviewed the chart and agree that the record accurately reflects my personal performance of the history, physical exam, medical decision making, and the department course for this patient. I have also personally directed, reviewed, and agree with the discharge instructions and disposition. Disposition - Clinical Impression Clinical Impression: Malingering - Disposition Disposition: Routine/Home Disposition Time: 05:10 Condition: STABLE Forms: [email or web address] (Yoruba)
[2017-12-20 06:15] VITALS: BP 114/62; PULSE 90; TEMP 98.2; O2SAT 99
== END 2017-12-20 06:06 | disposition home or self-care (01) ==
LOC: H.ER 01:45
DX: Z76.5 Malingerer [conscious simulation] (principal)

== ENCOUNTER 2017-12-20 19:32 | Emergency (ER) | payer MEDICAID ==
[2017-12-20 19:32] VITALS: BMI 23.7
--- NOTE | 2017-12-20 21:50 | ED PDOC ---
HPI: Seizure Time Seen by Provider: 12/20/17 20:17 Chief Complaint (Nursing): Seizure Chief Complaint (Provider): Seizure History Per: Patient, EMS History/Exam Limitations: no limitations Additional Complaint(s): Shreyas Sepulveda is a 52 year old male, with a past medical history of seizures, who was brought to the emergency department via EMS for unwitnessed seizures today. Patient is well known to provider and facility for multiple visits with similar complaints and bed seeking behavior. At present, he denies any physical complaints. PMD: None provided. Past Medical History Reviewed: Historical Data, Nursing Documentation, Vital Signs - Medical History PMH: Anemia, Anxiety, Back Problems (herniated disc), Deep Vein Thrombosis, Fractures (rib fx, left shoulder, Left hand 5th digit, Humerus fracture), Gastritis, Seizures (? due to alcohol withdrawal), Chronic Pain (left shoulder) Denies: HIV, Chronic Kidney Disease - Surgical History Surgical History: Endoscopy - Family History Family History: States: Unknown Family Hx - Immunization History Hx Tetanus Toxoid Vaccination: Yes Hx Influenza Vaccination: Yes Hx Pneumococcal Vaccination: Yes - Home Medications Home Medications: Ambulatory Orders Medication Instructions Recorded levETIRAcetam [Keppra] 500 mg PO Q12H 10/25/17 Folic Acid 1 mg PO DAILY #30 tab 11/25/17 Omeprazole Magnesium [Prilosec Otc] 40 mg PO BID #60 tablet. 11/25/17 Thiamine [Vitamin B1 Tab] 100 mg PO DAILY #30 tab 11/25/17 Levetiracetam [Keppra] 500 mg PO BID #60 tablet 12/04/17 Omeprazole Magnesium [Prilosec Otc] 20 mg PO DAILY #30 tab 12/04/17 levETIRAcetam [Keppra] 500 mg PO BID #30 tab 12/16/17 Levetiracetam [Keppra] 500 mg PO BID #30 tablet 12/17/17 Levetiracetam [Keppra] 500 mg PO BID #60 tablet 12/18/17 - Allergies Allergies/Adverse Reactions: Allergies Allergy/AdvReac Type Severity Reaction Status Date / Time aspirin Allergy NAUSEA Verified 12/20/17 19:49 ibuprofen [From Motrin] Allergy NAUSEA Verified 12/20/17 19:49 naproxen Allergy RASH Verified 12/20/17 19:49 NSAIDS (Non-Steroidal Allergy NAUSEA Verified 12/20/17 19:49 Anti-Inflamma Review of Systems ROS Statement: Except As Marked, All Systems Reviewed And Found Negative Neurological: Positive for: Seizures (unwitnessed) Physical Exam - Reviewed Nursing Documentation Reviewed: Yes Vital Signs Reviewed: Yes - Physical Exam Appears: Positive for: Non-toxic, No Acute Distress Head Exam: Positive for: ATRAUMATIC, NORMOCEPHALIC Skin: Positive for: Normal Color, Warm, Dry Eye Exam: Positive for: Normal appearance Neck: Positive for: Normal, Painless ROM Cardiovascular/Chest: Positive for: Regular Rate, Rhythm. Negative for: Murmur Respiratory: Positive for: Normal Breath Sounds. Negative for: Wheezing, Respiratory Distress Gastrointestinal/Abdominal: Positive for: Normal Exam, Soft. Negative for: Tenderness Back: Positive for: Normal Inspection. Negative for: L CVA Tenderness, R CVA Tenderness Extremity: Positive for: Normal ROM Neurologic/Psych: Positive for: Alert, Oriented. Negative for: Motor/Sensory Deficits Medical Decision Making Medical Decision Making: Initial Impression: 52 year old male with malingering. Initial Plan: Glucose Keppra 500mg PO 05:40 Upon provider reevaluation, patient is stale for discharge. Scribe Attestation: Documented by Carmine Rodriguez acting as a scribe for Olaf Fernandez MD. Provider Scribe Attestation: All medical record entries made by the Scribe were at my direction and personally dictated by me. I have reviewed the chart and agree that the record accurately reflects my personal performance of the history, physical exam, medical decision making, and the department course for this patient. I have also personally directed, reviewed, and agree with the discharge instructions and disposition. Disposition - Patient ED Disposition Is Patient to be Admitted: No Counseled Patient/Family Regarding: Studies Performed, Diagnosis, Need For Followup - Disposition Disposition: Routine/Home Disposition Time: 05:40 Condition: STABLE Forms: [employer] (Dutch)
[2017-12-21 06:36] VITALS: BP 136/62; PULSE 93; RESP 18; TEMP 98.9; O2SAT 95
== END 2017-12-21 06:38 | disposition home or self-care (01) ==
LOC: H.ER 19:32
DX: Z76.5 Malingerer [conscious simulation] (principal)

== ENCOUNTER 2017-12-21 09:53 | Inpatient (IN) | payer MEDICAID ==
[2017-12-21 09:53] VITALS: BMI 23.7
[2017-12-21] MEDS ORDERED: Sodium Chloride 0.9% 1,000 ML IV STA (10:41)
[2017-12-21] MEDS ORDERED: Sterile Water 10 ML IV ONE (10:46)
--- NOTE | 2017-12-21 10:51 | ED PDOC ---
HPI: Abdomen Time Seen by Provider: 12/21/17 10:34 Chief Complaint (Nursing): GI Problem Chief Complaint (Provider): abdominal pain, vomiting blood History Per: Patient History/Exam Limitations: no limitations Onset/Duration Of Symptoms: Hrs Outside of [place] travel?: No Location Of Pain/Discomfort: Epigastric Additional Complaint(s): 52 yo male with history of alcohol abuse, seizures and upper GI bleed presents with epigastric abdominal pain and vomiting blood x 4. Pt states he is also concerned about right rib pain from a trip fall last night. Pt well known to ER for multiple visits for unwitnessed seizures. Past Medical History Reviewed: Historical Data, Nursing Documentation, Vital Signs Vital Signs: Last Vital Signs Temp 97.9 F 12/21/17 09:59 Pulse 103 H 12/21/17 09:59 Resp 20 12/21/17 09:59 BP 112/57 L 12/21/17 09:59 Pulse Ox 97 12/21/17 11:05 - Medical History PMH: Anemia, Anxiety, Back Problems (herniated disc), Deep Vein Thrombosis, Fractures (rib fx, left shoulder, Left hand 5th digit, Humerus fracture), Gastritis, Seizures (? due to alcohol withdrawal), Chronic Pain (left shoulder) Denies: HIV, Chronic Kidney Disease - Surgical History Surgical History: Endoscopy - Family History Family History: States: Unknown Family Hx - Immunization History Hx Tetanus Toxoid Vaccination: Yes Hx Influenza Vaccination: Yes Hx Pneumococcal Vaccination: Yes - Home Medications Home Medications: Ambulatory Orders Medication Instructions Recorded levETIRAcetam [Keppra] 500 mg PO Q12H 10/25/17 Folic Acid 1 mg PO DAILY #30 tab 11/25/17 Omeprazole Magnesium [Prilosec Otc] 40 mg PO BID #60 tablet. 11/25/17 Thiamine [Vitamin B1 Tab] 100 mg PO DAILY #30 tab 11/25/17 Levetiracetam [Keppra] 500 mg PO BID #60 tablet 12/04/17 Omeprazole Magnesium [Prilosec Otc] 20 mg PO DAILY #30 tab 12/04/17 levETIRAcetam [Keppra] 500 mg PO BID #30 tab 12/16/17 Levetiracetam [Keppra] 500 mg PO BID #30 tablet 12/17/17 Levetiracetam [Keppra] 500 mg PO BID #60 tablet 12/18/17 - Allergies Allergies/Adverse Reactions: Allergies Allergy/AdvReac Type Severity Reaction Status Date / Time aspirin Allergy NAUSEA Verified 12/21/17 10:26 ibuprofen [From Motrin] Allergy NAUSEA Verified 12/21/17 10:26 naproxen Allergy RASH Verified 12/21/17 10:26 NSAIDS (Non-Steroidal Allergy NAUSEA Verified 12/21/17 10:26 Anti-Inflamma Review of Systems ROS Statement: Except As Marked, All Systems Reviewed And Found Negative Constitutional: Negative for: Fever, Chills Gastrointestinal: Positive for: Nausea, Vomiting, Abdominal Pain Physical Exam - Reviewed Nursing Documentation Reviewed: Yes Vital Signs Reviewed: Yes - Physical Exam Appears: Positive for: Well, Non-toxic, No Acute Distress Head Exam: Positive for: ATRAUMATIC, NORMAL INSPECTION, NORMOCEPHALIC Skin: Positive for: Normal Color, Warm, DRY Eye Exam: Positive for: Normal appearance ENT: Positive for: Normal ENT Inspection Neck: Positive for: Normal, Painless ROM Cardiovascular/Chest: Positive for: Regular Rate, Rhythm Respiratory: Positive for: Normal Breath Sounds. Negative for: Accessory Muscle Use Gastrointestinal/Abdominal: Positive for: Soft, Tenderness Back: Positive for: Normal Inspection Extremity: Positive for: Normal ROM Neurologic/Psych: Positive for: Alert, Oriented - Laboratory Results Result Diagrams: 12/21/17 10:55 12/21/17 10:55 - ECG O2 Sat by Pulse Oximetry: 97 Medical Decision Making Medical Decision Making: Pt did not want rectal exam in the ER. Case and labs discussed with Dr. Sousa. Due to hx of alcohol abuse, GI bleed and change in H/H in the last week patient will be placed on observation. Disposition - Clinical Impression Clinical Impression: Alcohol abuse, Anemia, GI bleed - Patient ED Disposition Is Patient to be Admitted: Yes - Disposition Disposition Time: 14:13 Condition: STABLE Forms: [employer] ([place]) - Pt Status Changed To: Hospital Disposition Of: Observation - POA Present On Arrival: None
[2017-12-21 11:15] LABS: BASO # 0.1 K/uL (0.0-0.2); BASO % 1.3 % (0.0-2.0); EOS # 0.1 K/uL (0.0-0.7); EOS % 1.7 % (0.0-4.0); HEMOGLOBIN 7.2 g/dL (12.0-18.0); LYMPH # 0.8 K/uL (1.0-4.3); LYMPH % 19.6 % (20.0-40.0); MEAN CORPUSCULAR HGB CONC 31.8 g/dL (33.0-37.0); MEAN PLATELET VOLUME 7.6 fl (7.2-11.7); MONO # 0.6 K/uL (0.0-0.8); MONO % 14.9 % (0.0-10.0); NEUT # 2.6 K/uL (1.8-7.0); NEUT % 62.5 % (50.0-75.0); RBC 2.59 Mil/uL (4.40-5.90); WHITE BLOOD COUNT 4.2 K/uL (4.8-10.8)
[2017-12-21 11:32] LABS: ALB/GLOB RATIO 0.7 (1.0-2.1); ALBUMIN 2.9 g/dL (3.5-5.0); ALT/SGPT 57 U/L (21-72); AST/SGOT 141 U/L (17-59); BLOOD UREA NITROGEN 24 mg/dl (9-20); CALCIUM 7.6 mg/dL (8.4-10.2); GFR AFRICAN-AMERICAN > 60; GFR NON-AFRICAN AMERICAN > 60; LIPASE 264 U/L (23-300)
--- NOTE | 2017-12-21 12:34 | RAD ---
PROCEDURE: Radiographs of the Chest and Right Ribs. HISTORY: right rib pain, fall COMPARISON: None available. TECHNIQUE: Frontal radiograph of the chest and multiple oblique radiographs of the right ribs were obtained. FINDINGS: RIGHT RIBS: Lateral 10th and 11th rib fractures. The finding is marked on the study for review. LUNGS: Clear. PLEURA: No pneumothorax or pleural fluid. CARDIOVASCULAR: Normal sized heart. No pulmonary vascular congestion. OTHER FINDINGS: Portosystemic shunt incompletely visualized. IMPRESSION: Nondisplaced fractures right lateral 10th and 11th ribs.
--- NOTE | 2017-12-21 14:50 | CP.PCM.HP ---
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 Two episodes began this morning at 9:30AM followed by three more episodes before 10AM. He describes the blood as bright red. He says his last drink was a shot of vodka a couple of days ago. He denies abdominal pain, dysphagia, headaches, dizziness, fever, night sweats. He also reports being in the ER yesterday after falling on his right side. Xray showed non-displaced lateral 10th and 11th rib fractures. PMHx: etoh use disorder, liver cirrhosis, esophageal ulcers Surgical hx: TIPs in 2014 PHos hx: multiple ED visits, etoh abuse, unwitnessed seizures and rib fracture Social hx: 3 cigarettes a day, 1.5 ppd previously, etoh denies abuse but level is 64 in ED Family hx: father [place], mother smoker and of lung cancer, sister diagnosed with colon cancer Home Meds: Keppra 500mg BID Allergies: asprin, ibuprofen, naproxen, NSAIDs (nausea for all of them) Next of Kin: SisterMissy Code status: full code ED Course: VS: wnl Labs: hgb 7.1, INR 1.8, PT 20.4, Lipase wnl, AST 141, alkaline phos 133, alcohol level 64 FOBT: positive Imaging: Right rib and chest XR right lateral 10th and 11th rib non-displaced fractures Meds: Protonix INJ 40mg in NaCl 0.9% @ 8mg/hr 20mL/hr IV Q5 Present on Admission - Present on Admission Any Indicators Present on Admission: No History of DVT/PE: No History of Uncontrolled Diabetes: No Urinary Catheter: No Decubitus Ulcer Present: No Review of Systems - Constitutional Constitutional: absent: Anorexia, Chills, Fever, Headache, Malaise, Night Sweats - EENT Eyes: absent: Change in Vision Nose/Mouth/Throat: Neck Pain. absent: Epistaxis, Nasal Congestion, Bleeding Gums, Dry Mouth, Dysphagia, Hoarsness, Sore Throat, Throat Swelling - Cardiovascular Cardiovascular: absent: Chest Pain, Dyspnea, Pedal Edema - Respiratory Respiratory: absent: Cough, Dyspnea, Pain on Inspiration - Gastrointestinal Gastrointestinal: Hematemesis, Nausea, Vomiting. absent: Abdominal Pain, Bloating, Change in Bowel Habits, Constipation, Diarrhea, Dysphagia, Heartburn Additional comments: x5 - Genitourinary Genitourinary: absent: Difficulty Urinating, Dysuria, Hematuria - Musculoskeletal Musculoskeletal: absent: Numbness - Neurological Neurological: absent: Abnormal Hearing, Numbness - Psychiatric Psychiatric: absent: Change in Appetite, Confusion - Endocrine Endocrine: absent: Excessive Sweating, Palpitations Past Patient History - Infectious Disease Hx of Infectious Diseases: None - Tetanus Immunizations Tetanus Immunization: Unknown - Past Medical History & Family History Past Medical History?: Yes Pertinent Family History: 59 y/o sister diagnosed with colon cancer at age 58. Mother was a smoker and from cancer. - Past Social History Smoking Status: Light Smoker < 10 Cigarettes Daily Alcohol: Other (last drink a couple of days ago, shot of vodka. Denies alcohol abuse. However, serum alcohol levels 64.) Drugs: Denies Home Situation {Lives}: Other (Lives with his sister) - CARDIAC Hx Cardiac Disorders: Yes (DVT) Hx Angina: No Hx Congestive Heart Failure: No Hx Heart Transplant: No Hx Hypercholesterolemia: No - PULMONARY Hx Respiratory Disorders: No - NEUROLOGICAL Hx Neurological Disorder: No Hx Seizures: Yes - HEENT Hx HEENT Problems: No - RENAL Hx Chronic Kidney Disease: No - ENDOCRINE/METABOLIC Hx Endocrine Disorders: No - HEMATOLOGICAL/ONCOLOGICAL Hx Blood Disorders: Yes (ANEMIA) Hx Cirrhosis: Yes - INTEGUMENTARY Hx Dermatological Problems: No - MUSCULOSKELETAL/RHEUMATOLOGICAL Hx Musculoskeletal Disorders: Yes (MULTIPLE FRACTURE HX) - GASTROINTESTINAL Hx Constipation: No Hx Diarrhea: No Hx Gastroesophageal Reflux: No Hx Hemorrhoids: Yes Hx Nausea: Yes Hx Ulcer: Yes - GENITOURINARY/GYNECOLOGICAL Hx Genitourinary Disorders: No Hx Sexually Transmitted Disorders: No - PSYCHIATRIC Hx Substance Use: Yes - SURGICAL HISTORY Hx Surgeries: Yes Other/Comment: "LEFT FINGER SURGERY" - ANESTHESIA Hx Anesthesia: Yes Hx Anesthesia Reactions: No Meds Allergies/Adverse Reactions: Allergies Allergy/AdvReac Type Severity Reaction Status Date / Time aspirin Allergy NAUSEA Verified 12/21/17 10:26 ibuprofen [From Motrin] Allergy NAUSEA Verified 12/21/17 10:26 naproxen Allergy RASH Verified 12/21/17 10:26 NSAIDS (Non-Steroidal Allergy NAUSEA Verified 12/21/17 10:26 Anti-Inflamma Physical Exam - Constitutional Appears: Well, Non-toxic, No Acute Distress - Head Exam Head Exam: ATRAUMATIC, NORMAL INSPECTION - Eye Exam Eye Exam: PERRL, Scleral icterus. absent: Conjunctival injection, Nystagmus Pupil Exam: NORMAL ACCOMODATION - ENT Exam ENT Exam: Mucous Membranes Moist - Neck Exam Neck exam: Positive for: Normal Inspection - Respiratory Exam Respiratory Exam: Clear to Auscultation Bilateral, NORMAL BREATHING PATTERN - Cardiovascular Exam Cardiovascular Exam: REGULAR RHYTHM, +S1, +S2 - GI/Abdominal Exam GI & Abdominal Exam: Normal Bowel Sounds, Soft. absent: Distended, Tenderness - Rectal Exam Rectal Exam: Hemorrhoids. absent: Bloody Stool Additional comments: external hemorrhoids, no ney blood - Extremities Exam Extremities exam: Positive for: normal inspection. Negative for: pedal edema - Back Exam Back exam: NORMAL INSPECTION - Neurological Exam Neurological exam: Alert, Oriented x3 - Psychiatric Exam Psychiatric exam: Normal Affect, Normal Mood - Skin Skin Exam: Abrasion (on the right chest) Additional comments: spider angiomas on bilateral lower extremities Results - Vital Signs Recent Vital Signs: Last Vital Signs Temp 98.4 F 12/21/17 14:34 Pulse 91 H 12/21/17 14:34 Resp 17 12/21/17 14:34 BP 112/60 12/21/17 14:34 Pulse Ox 98 12/21/17 14:33 - Labs Result Diagrams: 12/21/17 10:55 12/21/17 10:55 Labs: Laboratory Results - last 24 hr 12/21/17 12/21/17 10:55 10:55 WBC 4.2 L RBC 2.59 L Hgb 7.2 L Hct 22.8 L MCV 88.0 MCH 28.0 MCHC 31.8 L RDW 19.0 H Plt Count 63 L MPV 7.6 Neut % (Auto) 62.5 Lymph % (Auto) 19.6 L [place] % (Auto) 14.9 H Eos % (Auto) 1.7 Baso % (Auto) 1.3 Neut # (Auto) 2.6 Lymph # (Auto) 0.8 L [place] # (Auto) 0.6 Eos # (Auto) 0.1 Baso # (Auto) 0.1 Sodium 140 Potassium 3.7 Chloride 106 Carbon Dioxide 23 Anion Gap 15 BUN 24 H Creatinine 0.8 Est GFR ( Amer) > 60 Est GFR (Non-Af Amer) > 60 Random Glucose 112 H Calcium 7.6 L Total Bilirubin 3.5 H AST 141 H ALT 57 Alkaline Phosphatase 133 H D Total Protein 7.1 Albumin 2.9 L Globulin 4.3 H Albumin/Globulin Ratio 0.7 L Lipase 264 Alcohol, Quantitative 64 H Assessment & Plan - Assessment and Plan (Free Text) Assessment: 52 y/o male w/ hx of seizures and cirrhosis secondary to alcohol abuse s/p TIPS who presented to the ER today (12/21) w/ c/o of five episodes of bloody vomitus. Two episodes began this morning at 9:30AM followed by three more episodes before 10AM. He describes the blood as bright red. He says his last drink was a shot of vodka a couple of days ago. 1) Hematemesis: -likely 2/2 to portal hypertension and possible esophageal varices -Hgb 7.2 -admitted to telemetry -FOBT positive -GI consulted, case discussed w/ GI fellow; possible scope on -repeat CBC in the AM -hold PRBC as patient is known cirrhotic; transfuse if hgb <7 -Zofran 4mg IVP Q6 PRN -protonix 40 mg 2) Seizures: -cont home meds; Keppra 500mg BID 3)Alcohol abuse: -alcohol level 64 (12/21/17) -[facility] protocol -folic acid 1mg PO -Thiamine 100mg PO -Librium 50 mg PO Q6 PRN 4) Cirrhosis: -secondary to alcohol abuse -s/p TIPs -AST>ALT -AST 141, ALT 57 5)Coagulopathy -likely secondary to liver dysfunction -INR 1.8, PT 20.4 -patient is hemodynamically stable -will monitor 6)Lateral 10th and 11th rib fractures: -lidocaine patches PRN for pain 7) Diet: -NPO except ice chips 8) DVT prophylaxis: -SCDs - Date & Time Date: 12/21/17 Time: 15:33
[2017-12-21 15:43] LABS: INR 1.8 (0.9-1.2); PROTHROMBIN TIME 20.4 Seconds (9.8-13.1)
[2017-12-21] MEDS: Pantoprazole 40 MG in Sodium Chloride 0.9% 100 ML IVPB SCH ×2 (16:38→20:40)
[2017-12-21] MEDS: Lidocaine 5% Patch TD PRN (16:40)
[2017-12-21] MEDS: Lactated Ringer's 1,000 ML IV SCH (20:34)
[2017-12-22] MEDS: Pantoprazole 40 MG in Sodium Chloride 0.9% 100 ML IVPB SCH ×2 (01:30→06:59)
[2017-12-22] MEDS: Lactated Ringer's 1,000 ML IV SCH (05:30)
[2017-12-22 06:29] LABS: MEAN CELL VOLUME 87.7 fl (80.0-94.0); MEAN CORPUSCULAR HEMOGLOBIN 28.6 pg (27.0-31.0); MEAN CORPUSCULAR HGB CONC 32.6 g/dL (33.0-37.0); RBC 2.08 Mil/uL (4.40-5.90); RED CELL DISTRIBUTION WIDTH 19.1 % (11.5-14.5)
[2017-12-22 06:47] LABS: WHITE BLOOD COUNT 1.8 K/uL (4.8-10.8)
--- NOTE | 2017-12-22 07:19 | CP.PCM.PN ---
Subjective - Date & Time of Evaluation Date of Evaluation: 12/22/17 Time of Evaluation: 07:21 - Subjective Subjective: 52 y/o alcoholic male w/ pmhx significant for cirrhosis who came to ER on 12/21 w / c/o 5x episodes of bloody vomitus. Seen and examined at bed side. He denies abdominal pain, dizziness, nausea or vomiting. Patient endorses having an appetite. No acute events overnight. Objective - Vital Signs/Intake and Output Vital Signs (last 24 hours): Temp Pulse Resp BP Pulse Ox 98.2 F 86 18 101/53 L 96 12/22/17 05:00 12/22/17 05:00 12/22/17 05:00 12/22/17 05:00 12/22/17 05:00 - Medications Medications: Current Medications Chlordiazepoxide (Librium) 50 mg PO Q6 PRN PRN Reason: Agitation Last Admin: 12/21/17 22:26 Dose: 50 mg Folic Acid (Folic Acid) 1 mg PO DAILY [facility] Pantoprazole Sodium 40 mg/ (Sodium Chloride) 100 mls @ 20 mls/hr IVPB Q5H JANNIE PRN Reason: 8 MG/HR Last Admin: 12/22/17 06:59 Dose: 20 mls/hr Lactated Ringer's (Lactated Ringer's) 1,000 mls @ 100 mls/hr IV .Q10H [facility] Last Admin: 12/22/17 05:30 Dose: 100 mls/hr Levetiracetam (Keppra) 500 mg PO BID [facility] Last Admin: 12/21/17 16:39 Dose: 500 mg Lidocaine (Lidoderm) 1 ea TD DAILY PRN PRN Reason: Pain, moderate (4-7) Last Admin: 12/21/17 16:40 Dose: 1 ea Ondansetron HCl (Zofran Inj) 4 mg IVP Q6 PRN PRN Reason: Nausea/Vomiting Thiamine HCl (Vitamin B1 Tab) 100 mg PO DAILY [facility] - Labs Labs: 12/22/17 04:20 12/21/17 10:55 PT 20.4 Seconds (9.8-13.1) H 12/21/17 15:10 INR 1.8 (0.9-1.2) H 12/21/17 15:10 - Constitutional Appears: Well, No Acute Distress - Eye Exam Additional comments: scleral icterus - ENT Exam ENT Exam: Mucous Membranes Moist - Respiratory Exam Respiratory Exam: Clear to Ausculation Bilateral, NORMAL BREATHING PATTERN - Cardiovascular Exam Cardiovascular Exam: REGULAR RHYTHM, +S1, +S2 - GI/Abdominal Exam GI & Abdominal Exam: Soft, Normal Bowel Sounds. absent: Tenderness - Extremities Exam Extremities Exam: absent: Pedal Edema Additional comments: spider hemangiomas on bilateral lower extremities - Neurological Exam Neurological Exam: Alert, Awake, Oriented x3 - Psychiatric Exam Psychiatric exam: Normal Affect - Skin Skin Exam: Abrasion, Dry, Warm Additional comments: abrasion w/ dry blood to RLE and right sided ribs area Assessment and Plan - Assessment and Plan (Free Text) Assessment: Assessment: 52 y/o male w/ hx of seizures and cirrhosis secondary to alcohol abuse s/p TIPS who presented to the ER today (12/21) w/ c/o of five episodes of bloody vomitus. Two episodes began this morning at 9:30AM followed by three more episodes before 10AM. He describes the blood as bright red. He says his last drink was a shot of vodka a couple of days ago. 1) Hematemesis: -likely 2/2 to portal hypertension and possible esophageal varices -came in w/ Hgb 7.2, now 6.0. Consent obtained for transfusion -admitted to telemetry -FOBT positive -GI consulted, case discussed w/ GI fellow; possible scope on -repeat CBC in the AM -transfuse if hgb <7 -Zofran 4mg IVP Q6 PRN -protonix 40 mg 2)Pancytopenia - thrombocytopenia likely secondary to cirrhosis -Absolute neutrophil count 1125 mm3 -will monitor w/ follow up labs in AM and trend 3) Seizures: -cont home meds; Keppra 500mg BID 4)Alcohol abuse: -alcohol level 64 (12/21/17) -[facility] protocol -folic acid 1mg PO -Thiamine 100mg PO -Librium 50 mg PO Q6 PRN 5) Cirrhosis: -secondary to alcohol abuse -s/p TIPs -AST>ALT -AST 141, ALT 57 6)Coagulopathy -likely secondary to liver dysfunction -INR 1.8, PT 20.4 -patient is hemodynamically stable -will monitor 7)Lateral 10th and 11th rib fractures: -lidocaine patches PRN for pain 8) Diet: -liquid diet as per GI 9) DVT prophylaxis: -SCDs
--- NOTE | 2017-12-22 07:38 | CP.PCM.CON ---
<Reyes Rangel - Last Filed: 12/22/17 15:06> History of Present Illness - History of Present Illness History of Present Illness: PGY5 Initial GI Consult Shreyas Sepulveda is a 52yo male with PMHx significant for decompensated EtOH cirrhosis s/p TIPS (2014), severe esophagitis and recently noted clean based esophageal ulcer (October 15, 2017), EtOH withdrawal seizures who presented to the ED with complaint of 3 episodes of hematemesis yesterday morning. The patient has presented to the ER multiple times, daily for the last month, and multiple admissions for similar complaints and for breakthrough seizures. Since admission he has had no episodes of either. Currently, he states he is hungry and wants to eat. He does not followup with any physicians as an outpt. He admits to ongoing EtOH abuse with intake multiple times this past week as documented by multiple elevated EtOH levels this admission and this month in EMR. He is noncompliant with medications and followup. On presentation pt's Hgb 7.2 which is below is baseline of 9, rectal by ER physician was negative for melena or hematochezia. Pt refusing further rectal exams at time of evaluation. Overnight his hgb reduced to 6.0, without any rectal bleeding, hematemsis or coffee-ground emesis. He does note a fall the day prior to admission and abrasion over is right ribs. ROS: 12 system ROS performed and negative except where stated PMHx: As stated in HPI PSHx: TIPS in 2014 FHx: Sister with colon cancer at age 58yo Social: Denies EtOH use for >1 year but EtOH level +4 times in less than the past month; denies tobacco or illicit drug use Endo: EGD - 10/15/2017 - clean based Esophageal ulcer, retained food Colonoscopy - 06/2017 - Poor prep, internal/external hemorrhoids EGD - 04/2017 - LA Grade C esophagitis with visible vessel at EGJ s/p clip and injection of epi, portal hypertensive gastropathy Past Patient History - Infectious Disease Hx of Infectious Diseases: None - Tetanus Immunizations Tetanus Immunization: Unknown - Past Medical History & Family History Past Medical History?: Yes - Past Social History Smoking Status: Light Smoker < 10 Cigarettes Daily Alcohol: Other (last drink a couple of days ago, shot of vodka. Denies alcohol abuse. However, serum alcohol levels 64.) Drugs: Denies Home Situation {Lives}: Other (Lives with his sister) - CARDIAC Hx Cardiac Disorders: Yes (DVT) Hx Angina: No Hx Congestive Heart Failure: No Hx Heart Transplant: No Hx Hypercholesterolemia: No - PULMONARY Hx Respiratory Disorders: No - NEUROLOGICAL Hx Neurological Disorder: No Hx Seizures: Yes - HEENT Hx HEENT Problems: No - RENAL Hx Chronic Kidney Disease: No - ENDOCRINE/METABOLIC Hx Endocrine Disorders: No - HEMATOLOGICAL/ONCOLOGICAL Hx Blood Disorders: Yes (ANEMIA) Hx Cirrhosis: Yes - INTEGUMENTARY Hx Dermatological Problems: No - MUSCULOSKELETAL/RHEUMATOLOGICAL Hx Musculoskeletal Disorders: Yes (MULTIPLE FRACTURE HX) - GASTROINTESTINAL Hx Constipation: No Hx Diarrhea: No Hx Gastroesophageal Reflux: No Hx Hemorrhoids: Yes Hx Nausea: Yes Hx Ulcer: Yes - GENITOURINARY/GYNECOLOGICAL Hx Genitourinary Disorders: No Hx Sexually Transmitted Disorders: No - PSYCHIATRIC Hx Substance Use: Yes - SURGICAL HISTORY Hx Surgeries: Yes Other/Comment: "LEFT FINGER SURGERY" - ANESTHESIA Hx Anesthesia: Yes Hx Anesthesia Reactions: No Meds Allergies/Adverse Reactions: Allergies Allergy/AdvReac Type Severity Reaction Status Date / Time aspirin Allergy NAUSEA Verified 12/21/17 10:26 ibuprofen [From Motrin] Allergy NAUSEA Verified 12/21/17 10:26 naproxen Allergy RASH Verified 12/21/17 10:26 NSAIDS (Non-Steroidal Allergy NAUSEA Verified 12/21/17 10:26 Anti-Inflamma - Medications Medications: Current Medications Chlordiazepoxide (Librium) 50 mg PO Q6 PRN PRN Reason: Agitation Last Admin: 12/21/17 22:26 Dose: 50 mg Folic Acid (Folic Acid) 1 mg PO DAILY [facility] Pantoprazole Sodium 40 mg/ (Sodium Chloride) 100 mls @ 20 mls/hr IVPB Q5H [facility] PRN Reason: 8 MG/HR Last Admin: 12/22/17 06:59 Dose: 20 mls/hr Lactated Ringer's (Lactated Ringer's) 1,000 mls @ 100 mls/hr IV .Q10H [facility] Last Admin: 12/22/17 05:30 Dose: 100 mls/hr Levetiracetam (Keppra) 500 mg PO BID [facility] Last Admin: 12/21/17 16:39 Dose: 500 mg Lidocaine (Lidoderm) 1 ea TD DAILY PRN PRN Reason: Pain, moderate (4-7) Last Admin: 12/21/17 16:40 Dose: 1 ea Ondansetron HCl (Zofran Inj) 4 mg IVP Q6 PRN PRN Reason: Nausea/Vomiting Thiamine HCl (Vitamin B1 Tab) 100 mg PO DAILY [facility]ANNIE Physical Exam - Constitutional Appears: Well, No Acute Distress - Head Exam Head Exam: ATRAUMATIC, NORMOCEPHALIC - Eye Exam Eye Exam: Normal appearance - ENT Exam ENT Exam: Mucous Membranes Moist, Normal Exam - Neck Exam Neck exam: Positive for: Normal Inspection - Respiratory Exam Respiratory Exam: Clear to Auscultation Bilateral, NORMAL BREATHING PATTERN. absent: Rales, Rhonchi, Wheezes, Respiratory Distress - Cardiovascular Exam Cardiovascular Exam: REGULAR RHYTHM, +S1, +S2 - GI/Abdominal Exam GI & Abdominal Exam: Normal Bowel Sounds, Soft. absent: Distended, Guarding, Organomegaly, Rebound, Rigid - Rectal Exam Rectal Exam: Deferred - Extremities Exam Extremities exam: Negative for: joint swelling, pedal edema - Back Exam Back exam: CVA tenderness (R) - Neurological Exam Neurological exam: Alert, Oriented x3 - Psychiatric Exam Psychiatric exam: Normal Affect, Normal Mood - Skin Skin Exam: Dry, Intact, Normal Color, Warm Results - Vital Signs Recent Vital Signs: Last Vital Signs Temp 98.2 F 12/22/17 05:00 Pulse 86 12/22/17 05:00 Resp 18 12/22/17 05:00 BP 101/53 L 12/22/17 05:00 Pulse Ox 96 12/22/17 05:00 - Labs Result Diagrams: 12/22/17 04:20 12/21/17 10:55 Labs: Laboratory Results - last 24 hr 12/21/17 12/21/17 12/21/17 10:55 10:55 15:00 WBC 4.2 L RBC 2.59 L Hgb 7.2 L Hct 22.8 L MCV 88.0 MCH 28.0 MCHC 31.8 L RDW 19.0 H Plt Count 63 L MPV 7.6 Neut % (Auto) 62.5 Lymph % (Auto) 19.6 L Nance % (Auto) 14.9 H Eos % (Auto) 1.7 Baso % (Auto) 1.3 Neut # (Auto) 2.6 Lymph # (Auto) 0.8 L Nance # (Auto) 0.6 Eos # (Auto) 0.1 Baso # (Auto) 0.1 PT INR Sodium 140 Potassium 3.7 Chloride 106 Carbon Dioxide 23 Anion Gap 15 BUN 24 H Creatinine 0.8 Est GFR ( Amer) > 60 Est GFR (Non-Af Amer) > 60 Random Glucose 112 H Calcium 7.6 L Total Bilirubin 3.5 H AST 141 H ALT 57 Alkaline Phosphatase 133 H D Total Protein 7.1 Albumin 2.9 L Globulin 4.3 H Albumin/Globulin Ratio 0.7 L Lipase 264 Stool Occult Blood Positive H Alcohol, Quantitative 64 H Blood Type Antibody Screen Crossmatch BBK History Checked 12/21/17 12/21/17 12/22/17 15:00 15:10 04:20 WBC 1.8 L* D RBC 2.08 L Hgb 6.0 L* Hct 18.3 L MCV 87.7 MCH 28.6 MCHC 32.6 L RDW 19.1 H Plt Count 55 L MPV Neut % (Auto) Lymph % (Auto) Nance % (Auto) Eos % (Auto) Baso % (Auto) Neut # (Auto) Lymph # (Auto) Nance # (Auto) Eos # (Auto) Baso # (Auto) PT 20.4 H INR 1.8 H Sodium Potassium Chloride Carbon Dioxide Anion Gap BUN Creatinine Est GFR ( Amer) Est GFR (Non-Af Amer) Random Glucose Calcium Total Bilirubin AST ALT Alkaline Phosphatase Total Protein Albumin Globulin Albumin/Globulin Ratio Lipase Stool Occult Blood Alcohol, Quantitative Blood Type O POSITIVE Antibody Screen Negative Crossmatch See Detail BBK History Checked Patient has bt Assessment & Plan - Assessment and Plan (Free Text) Assessment: Patient is a 52yo male with PMHx significant for decompensated EtOH cirrhosis s/ p TIPS (2014), severe esophagitis and recently noted esophageal ulcer (September), EtOH withdrawal seizures who presented to the ED with complaint of hematemesis and hematochezia Hematemesis/hematochezia-resolved Anemia likely 2/2 above; r/o PUD, malignancy, varicies, esophageal ulcer Hx Decompensated EtOH cirrhosis s/p TIPS, MELD 18 on admission, DF:45 Hx Esophageal ulcer clean based Suspected gastroparesis EtOH abuse/intoxication Hx of large internal/external hemorrhoids Plan: -Continue supportive care -Pt refused rectal exam but in ER rectal exam documented as negative for melena/ hematochezia -No active GI bleeding; no further hematemesis or melena since admission -Hgb at 6, transfuse to keep hgb > 7 -ordered 1 unit PRBC today, recheck cbc 4 hr post transfusion -Monitor H/H -Remains hemodynamically stable -continue IV PPI drip -LFTs likely a result of recent EtOH use -Start clear liquid diet and advance as tolerated -Encourage EtOH cessation, monitor for withdrawals -though DF>25, will not start steroids due to high probab of starting to consume ETOH after discharge will eval hgb in the AM, will determine to do EGD based on response to PRBC D/W Dr. Bradley <Gage Bradley - Last Filed: 12/22/17 15:21> Meds - Medications Medications: Current Medications Chlordiazepoxide (Librium) 50 mg PO Q6 PRN PRN Reason: Agitation Last Admin: 12/22/17 08:38 Dose: 50 mg Folic Acid (Folic Acid) 1 mg PO DAILY [facility] Last Admin: 12/22/17 08:32 Dose: 1 mg Levetiracetam (Keppra) 500 mg PO BID [facility] Last Admin: 12/22/17 08:33 Dose: 500 mg Lidocaine (Lidoderm) 1 ea TD DAILY PRN PRN Reason: Pain, moderate (4-7) Last Admin: 12/22/17 08:33 Dose: 1 ea Ondansetron HCl (Zofran Inj) 4 mg IVP Q6 PRN PRN Reason: Nausea/Vomiting Pantoprazole Sodium (Protonix Ec Tab) 40 mg PO BID [facility] Thiamine HCl (Vitamin B1 Tab) 100 mg PO DAILY [facility] Last Admin: 12/22/17 08:33 Dose: 100 mg Results - Vital Signs Recent Vital Signs: Last Vital Signs Temp 97.4 F L 12/22/17 12:58 Pulse 67 12/22/17 12:58 Resp 20 12/22/17 12:58 BP 136/71 12/22/17 12:58 Pulse Ox 99 12/22/17 12:58 - Labs Result Diagrams: 12/22/17 04:20 12/21/17 10:55 Labs: Laboratory Results - last 24 hr 12/21/17 12/21/17 12/21/17 15:00 15:00 15:10 WBC RBC Hgb Hct MCV MCH MCHC RDW Plt Count PT 20.4 H INR 1.8 H Stool Occult Blood Positive H Blood Type O POSITIVE Antibody Screen Negative Crossmatch See Detail BBK History Checked Patient has bt 12/22/17 04:20 WBC 1.8 L* D RBC 2.08 L Hgb 6.0 L* Hct 18.3 L MCV 87.7 MCH 28.6 MCHC 32.6 L RDW 19.1 H Plt Count 55 L PT INR Stool Occult Blood Blood Type Antibody Screen Crossmatch BBK History Checked Attending/Attestation - Attestation I have personally seen and examined this patient.: Yes I have fully participated in the care of the patient.: Yes I have reviewed all pertinent clinical information: Yes Notes (Text): 12/22/17 15:14 Patient seen lexi today. Known from [facility]. In a nutshell this is a 52 yr old male with PMHx significant for decompensated EtOH cirrhosis s/p TIPS ( 2014), severe esophagitis and recently noted esophageal ulcer (on EGD October 15, 2017), EtOH withdrawal seizures who presented to the ED with complaint of hematemesis and hematochezia. Patient has TIPS and hence will not have variceal bleed or varices due to decreased portal HTN. He states he vomited after binge drinking and saw tinge of blood. Likely graeme chou tear. s/p unit of PRBC. Bone marrow suppression due to alcohol and hence anemia. Rectal exam wiht brown stool. No active GI bleeding. Discriminant factor of 42 but will not start prednisolone as patient is still actively drinking daily. PPi bid. No indication for EGD. Regular diet as tolerated. Encourage ethanol cessation. thank you for letting us participate in the care of your patient
[2017-12-22] MEDS: Lidocaine 5% Patch TD PRN (08:33)
[2017-12-22 18:54] LABS: HEMOGLOBIN 6.7 g/dL (12.0-18.0); MEAN CELL VOLUME 88.6 fl (80.0-94.0); MEAN CORPUSCULAR HEMOGLOBIN 28.8 pg (27.0-31.0); MEAN CORPUSCULAR HGB CONC 32.5 g/dL (33.0-37.0); RBC 2.34 Mil/uL (4.40-5.90); RED CELL DISTRIBUTION WIDTH 18.1 % (11.5-14.5); WHITE BLOOD COUNT 2.5 K/uL (4.8-10.8)
[2017-12-22] MEDS: Pantoprazole 40 mg EC Tab PO SCH (22:11)
[2017-12-23 05:29] LABS: HEMOGLOBIN 7.2 g/dL (12.0-18.0); MEAN CELL VOLUME 88.6 fl (80.0-94.0); MEAN CORPUSCULAR HGB CONC 32.8 g/dL (33.0-37.0); RBC 2.47 Mil/uL (4.40-5.90)
[2017-12-23 06:15] LABS: ALB/GLOB RATIO 0.6 (1.0-2.1); ALBUMIN 2.2 g/dL (3.5-5.0); ALT/SGPT 43 U/L (21-72); AST/SGOT 82 U/L (17-59); BLOOD UREA NITROGEN 16 mg/dl (9-20); CALCIUM 7.5 mg/dL (8.4-10.2); GFR AFRICAN-AMERICAN > 60; GFR NON-AFRICAN AMERICAN > 60
[2017-12-23] MEDS: Pantoprazole 40 mg EC Tab PO SCH ×2 (09:16→17:38)
[2017-12-23] MEDS: Lidocaine 5% Patch TD PRN (09:21)
--- NOTE | 2017-12-23 10:00 | CP.PCM.PN ---
Subjective - Date & Time of Evaluation Date of Evaluation: 12/23/17 Time of Evaluation: 09:58 - Subjective Subjective: 52 y/o alcoholic male w/ pmhx significant for cirrhosis who came to ER on 12/21 w / c/o 5x episodes of bloody vomitus. Seen and examined at bed side, eating apple sauce. He denies abdominal pain, dizziness, nausea or vomiting. Objective - Vital Signs/Intake and Output Vital Signs (last 24 hours): Temp Pulse Resp BP Pulse Ox 97.7 F 78 20 107/63 97 12/23/17 08:15 12/23/17 08:15 12/23/17 08:15 12/23/17 08:15 12/23/17 08:15 - Medications Medications: Current Medications Chlordiazepoxide (Librium) 50 mg PO Q6 PRN PRN Reason: Agitation Last Admin: 12/23/17 09:16 Dose: 50 mg Folic Acid (Folic Acid) 1 mg PO DAILY [facility] Last Admin: 12/23/17 09:17 Dose: 1 mg Levetiracetam (Keppra) 500 mg PO BID [facility] Last Admin: 12/23/17 09:16 Dose: 500 mg Lidocaine (Lidoderm) 1 ea TD DAILY PRN PRN Reason: Pain, moderate (4-7) Last Admin: 12/23/17 09:21 Dose: 1 ea Ondansetron HCl (Zofran Inj) 4 mg IVP Q6 PRN PRN Reason: Nausea/Vomiting Pantoprazole Sodium (Protonix Ec Tab) 40 mg PO BID [facility] Last Admin: 12/23/17 09:16 Dose: 40 mg Thiamine HCl (Vitamin B1 Tab) 100 mg PO DAILY [facility] Last Admin: 12/23/17 09:17 Dose: 100 mg - Labs Labs: 12/23/17 05:00 12/23/17 05:00 PT 20.4 Seconds (9.8-13.1) H 12/21/17 15:10 INR 1.8 (0.9-1.2) H 12/21/17 15:10 - Constitutional Appears: Well, No Acute Distress - ENT Exam ENT Exam: Mucous Membranes Moist - Respiratory Exam Respiratory Exam: Clear to Ausculation Bilateral, NORMAL BREATHING PATTERN - Cardiovascular Exam Cardiovascular Exam: REGULAR RHYTHM, +S1, +S2 - GI/Abdominal Exam GI & Abdominal Exam: Soft, Normal Bowel Sounds. absent: Tenderness - Extremities Exam Extremities Exam: Normal Inspection. absent: Pedal Edema - Neurological Exam Neurological Exam: Alert, Awake - Skin Skin Exam: Dry, Intact, Warm Assessment and Plan - Assessment and Plan (Free Text) Assessment: 52 y/o male w/ hx of seizures and cirrhosis secondary to alcohol abuse s/p TIPS who presented to the ER (12/21) w/ c/o of five episodes of bloody vomitus. T. He describes the blood as bright red. He says his last drink was a shot of vodka a couple of days before admission 1) Hematemesis: -s/p 2 units of PRBC transfusions -Hgb has not improved as predicted, will transfuse additional 1 unit PRBC -no signs of active bleeding, no new episodes of hematemesis or hematochezia -12/22/17 post 1PRB transfusion hgb 7.2, dropped today to 6.7 and is now 7.2 post 1 PRBC -FOBT positive -10/15/17 Upper GI endoscopy showed 7 mm superficial esophageal ulcer -GI consulted, case discussed w/ GI fellow. EGD not indicated at this time as per GI -Colonoscopy (06/2017) Poor prep, internal/external hemorrhoids -EGD (04/2017) - LA Grade C esophagitis with visible vessel at EGJ s/p clip and injection of epi, portal hypertensive gastropathy -will follow CBC -Zofran 4mg IVP Q6 PRN -protonix 40 mg 2) Pancytopenia - thrombocytopenia likely secondary to cirrhosis -Absolute neutrophil count 1125 mm3 -will monitor w/ follow up labs in AM and trend -consider heme onc consult 3) Seizures: -cont home meds; Keppra 500mg BID 4)Alcohol abuse: -alcohol level 64 (12/21/17) -[facility] protocol -folic acid 1mg PO -Thiamine 100mg PO -Librium 50 mg PO Q6 PRN 5) Cirrhosis: -secondary to alcohol abuse -s/p TIPs -AST>ALT -transaminitis : AST down to 82 from 141, ALT down to 43 from 57 6)Coagulopathy -likely secondary to liver dysfunction -INR 1.8, PT 20.4 -patient is hemodynamically stable -will monitor 7)Lateral 10th and 11th rib fractures: -lidocaine patches PRN for pain 8) Diet: -liquid diet as per GI 9) DVT prophylaxis: -SCDs
[2017-12-24 06:02] LABS: HEMOGLOBIN 8.3 g/dL (12.0-18.0); MEAN CORPUSCULAR HEMOGLOBIN 29.5 pg (27.0-31.0); MEAN CORPUSCULAR HGB CONC 33.2 g/dL (33.0-37.0); RBC 2.8 Mil/uL (4.40-5.90); RED CELL DISTRIBUTION WIDTH 17.2 % (11.5-14.5); WHITE BLOOD COUNT 2.8 K/uL (4.8-10.8)
[2017-12-24 06:13] LABS: ALB/GLOB RATIO 0.7 (1.0-2.1); ALBUMIN 2.3 g/dL (3.5-5.0); ALT/SGPT 37 U/L (21-72); AST/SGOT 74 U/L (17-59); BLOOD UREA NITROGEN 13 mg/dl (9-20); CALCIUM 7.8 mg/dL (8.4-10.2); GFR AFRICAN-AMERICAN > 60; GFR NON-AFRICAN AMERICAN > 60
[2017-12-24] MEDS: Pantoprazole 40 mg EC Tab PO SCH ×4 (10:01→20:20)
[2017-12-24] MEDS: Lidocaine 5% Patch TD PRN (10:01)
--- NOTE | 2017-12-24 14:14 | CP.PCM.PN ---
Subjective - Date & Time of Evaluation Date of Evaluation: 12/24/17 Time of Evaluation: 14:14 - Subjective Subjective: 52 y/o alcoholic male w/ pmhx significant for cirrhosis who came to ER on 12/21 w / c/o 5x episodes of bloody vomitus. Seen and examined at bed side. He states that both of his eyes are "burning" today. He wears daily contact lenses, and does not change them as prescribed. He denies visual changes, trauma, headaches. He denies abdominal pain, dizziness , nausea or vomiting. Objective - Vital Signs/Intake and Output Vital Signs (last 24 hours): Temp Pulse Resp BP Pulse Ox 97.4 F L 82 18 114/67 97 12/24/17 12:09 12/24/17 12:09 12/24/17 12:12/24/17 12:09 12/24/17 12:09 - Medications Medications: Current Medications Chlordiazepoxide (Librium) 50 mg PO Q6 PRN PRN Reason: Agitation Last Admin: 12/24/17 09:59 Dose: 50 mg Folic Acid (Folic Acid) 1 mg PO DAILY [facility] Last Admin: 12/24/17 10:01 Dose: 1 mg Levetiracetam (Keppra) 500 mg PO BID [facility] Last Admin: 12/24/17 10:02 Dose: 500 mg Lidocaine (Lidoderm) 1 ea TD DAILY PRN PRN Reason: Pain, moderate (4-7) Last Admin: 12/24/17 10:01 Dose: 1 ea Ondansetron HCl (Zofran Inj) 4 mg IVP Q6 PRN PRN Reason: Nausea/Vomiting Pantoprazole Sodium (Protonix Ec Tab) 40 mg PO BID [facility] Last Admin: 12/24/17 10:01 Dose: 40 mg Thiamine HCl (Vitamin B1 Tab) 100 mg PO DAILY [facility] Last Admin: 12/24/17 10:02 Dose: 100 mg Tobramycin Sulfate (Tobrex 0.3% Ophth Soln) 2 drop OU TID [facility] - Labs Labs: 12/24/17 05:24 12/24/17 05:24 PT 20.4 Seconds (9.8-13.1) H 12/21/17 15:10 INR 1.8 (0.9-1.2) H 12/21/17 15:10 - Constitutional Appears: Well, No Acute Distress - Head Exam Head Exam: ATRAUMATIC - Eye Exam Eye Exam: Periorbital tenderness. absent: Conjunctival injection, Periorbital swelling Pupil Exam: NORMAL ACCOMODATION, PERRL - ENT Exam ENT Exam: Mucous Membranes Moist - Respiratory Exam Respiratory Exam: Clear to Ausculation Bilateral, NORMAL BREATHING PATTERN - Cardiovascular Exam Cardiovascular Exam: REGULAR RHYTHM, +S1, +S2 - GI/Abdominal Exam GI & Abdominal Exam: Soft, Normal Bowel Sounds. absent: Tenderness - Extremities Exam Extremities Exam: absent: Pedal Edema - Neurological Exam Neurological Exam: Alert, Awake, Oriented x3 - Skin Skin Exam: Dry, Intact, Warm Assessment and Plan - Assessment and Plan (Free Text) Assessment: 1) Hematemesis: -s/p 3 units of PRBC transfusions -hgb 8.3 -no signs of active bleeding, no new episodes of hematemesis or hematochezia -FOBT positive -10/15/17 Upper GI endoscopy showed 7 mm superficial esophageal ulcer -GI consulted, case discussed w/ GI fellow. EGD not indicated at this time as per GI -Colonoscopy (06/2017) Poor prep, internal/external hemorrhoids -EGD (04/2017) - LA Grade C esophagitis with visible vessel at EGJ s/p clip and injection of epi, portal hypertensive gastropathy -will follow CBC -Zofran 4mg IVP Q6 PRN -protonix 40 mg 2)Bilateral Opthalmalgia -no visual changes, no floaters, no drawn down curtains -BP 96/53 -denies headache -does not change contact lenses as perscribed -CT orbits/facials pending -ordered Tobrex 2 drops OU TID 2) Pancytopenia - thrombocytopenia likely secondary to cirrhosis -Absolute neutrophil count 1125 mm3 -will monitor w/ follow up labs in AM and trend -consider heme onc consult 3) Seizures: -cont home meds; Keppra 500mg BID 4)Alcohol abuse: -alcohol level 64 (12/21/17) -[facility] protocol -folic acid 1mg PO -Thiamine 100mg PO -Librium 50 mg PO Q6 PRN 5) Cirrhosis: -secondary to alcohol abuse -s/p TIPs -AST>ALT -transaminitis 6)Coagulopathy -likely secondary to liver dysfunction -INR 1.8, PT 20.4 -patient is hemodynamically stable -will monitor 7)Lateral 10th and 11th rib fractures: -lidocaine patches PRN for pain -1 gm morphine 8) Diet: -liquid diet as per GI 9) DVT prophylaxis: -SCDs
[2017-12-24] MEDS: Tobramycin 0.3% OPHT SOLN OU SCH ×2 (16:13→18:36)
--- NOTE | 2017-12-24 16:33 | CT ---
PROCEDURE: CT ORBITS WITHOUT CONTRAST. HISTORY: b/l eye pain COMPARISON: None available. TECHNIQUE: Axial CT images of the orbits were obtained. Coronal and sagittal reformats were generated. Radiation dose: Total exam DLP = 812.2 mGy-cm. This CT exam was performed using one or more of the following dose reduction techniques: Automated exposure control, adjustment of the mA and/or kV according to patient size, and/or use of iterative reconstruction technique. FINDINGS: RIGHT ORBIT: RIGHT BONY ORBIT: Normal. RIGHT INTRAORBITAL STRUCTURES: Globe: Normal. Extraocular muscles: Normal. Post septal space: Normal. Optic Nerve: Normal. Lacrimal Apparatus: Normal. RIGHT PRESEPTAL SOFT TISSUES: Normal. LEFT ORBIT: LEFT BONY ORBIT: Normal. LEFT INTRAORBITAL STRUCTURES: Globe: Normal. Extraocular muscles: Normal. Post septal space: Normal Optic Nerve: Normal. . Lacrimal Apparatus: Normal. LEFT PRESEPTAL SOFT TISSUES: Normal. OTHER: 0.8 x 0.7 cm lucency in the inferior mandible on the left (series 2, image 9). Bilateral maxillary sinus mucosal thickening. Partial opacification of the dependent mastoid air cells bilaterally. Patient is edentulous. IMPRESSION: Unremarkable non contrast enhanced CT of the orbits. Bilateral maxillary sinus mucosal thickening and partial mastoid air cell opacification. 8 x 7 mm lucency in the inferior left mandible.
--- NOTE | 2017-12-24 17:09 | RAD ---
PROCEDURE: CHEST RADIOGRAPH, 1 VIEW HISTORY: fever COMPARISON: Chest radiograph dated 11/26/2017. FINDINGS: LUNGS: Clear. PLEURA: No pneumothorax or pleural fluid seen. CARDIOVASCULAR: Atherosclerotic aortic calcifications. Cardiomediastinal silhouette within normal limits. OSSEOUS STRUCTURES: Unchanged. VISUALIZED UPPER ABDOMEN: Normal. OTHER FINDINGS: None. IMPRESSION: No active disease.
[2017-12-24] MEDS ORDERED: Chlorhexidine Gluconate 1 APPL/PKT TP ONE (17:37)
[2017-12-24] MEDS ORDERED: Sodium Chloride 0.9% 500 ML IV ONE ×2 (17:54→19:13)
[2017-12-24 18:15] LABS: MEAN CELL VOLUME 88.3 fl (80.0-94.0); MEAN CORPUSCULAR HEMOGLOBIN 29.8 pg (27.0-31.0); MEAN CORPUSCULAR HGB CONC 33.7 g/dL (33.0-37.0); RBC 3.04 Mil/uL (4.40-5.90); RED CELL DISTRIBUTION WIDTH 17.8 % (11.5-14.5); WHITE BLOOD COUNT 7.8 K/uL (4.8-10.8)
--- NOTE | 2017-12-24 18:32 | PCM.RRT ---
[facility] Nurse Assessment - Situation Location: 4n Room Number: 410-2 [facility] Reason for Call: Tachycardia [facility] Called By: RN - IV IV Inserted during [facility]?: No IV Fluids Initiated During [facility]?: yes, 500 cc NS - Ventilator Settings Ventilator Respiratory Rate Settin Ventilator Tidal Volume Settin - Diagnostic Test Ordered EKG: Yes Chest X-Ray: Yes - Stat Labs Ordered [facility] Stat Labs Ordered: CBC, BMP, PT/PTT, BLOOD C&S X2 [facility] Other Labs Ordered: ammonia CPR started during [facility]?: No - Vital Signs Vital Signs: Rapid Response Vital Sign Blood Pressure 116/58 Pulse Rate 140 Respiratory Rate 16 Temperature 103 F Oxygen Saturation 99 - Time [facility] Ended Time [facility] Ended: 18:00 - Vital Signs at end of [facility] Vital Signs at end of [facility]: Rapid Response End Vital Sign Blood Pressure 132/55 Pulse Rate 122 O2 Sat by Pulse Oximetry 97 - Recommendations [facility] Level of Care Recommendations: Remain in current setting I.Reason for [facility] - A) Acute Change in Patient: Subjective: [facility] was called by nurse due to elevated HR: >140s, in a 52 y/o male with PMHx of Etoh abuse, seizures, Liver cirrhosis admitted for GI bleeding. At the time of arrival patient was found somnolent, but responsive to verbal and tactile stimuli. Also temperature was 103 F at the time of tachycardia episode. Patient denies chest pain, SOB, Nausea, abdominal pain, diaphoresis. As per primary team patient and nurse, this afternoon patient was given Librium due to high CIWA score. - Constitutional Appears: No Acute Distress, Other (drowsy) - Eyes Eye Exam: PERRL. absent: Conjunctival injection, Nystagmus - Respiratory Exam Respiratory Exam: Clear to Ausculation Bilateral, NORMAL BREATHING PATTERN. absent: Rales, Rhonchi, Wheezes, Respiratory Distress, Stridor - Cardiovascular Exam Cardiovascular Exam: Tachycardia, REGULAR RHYTHM, +S1, +S2 - GI/Abdominal Exam GI & Abdominal Exam: Soft, Normal Bowel Sounds. absent: Guarding, Rigid, Tenderness - Neurological Exam Additional exam: Drowsy - Extremities Exam Extremities Exam: absent: Calf Tenderness, Pedal Edema Plan - Assessment of Findings&Treatment Plan Plan: VS on arrival: BP: 116/58, HR: 140s, Oxygen sat: 97 % in RA, RR: 16, Temp: 103 -s/p tylenol 325 mg IA prior to [facility] -EKG : NSR, sinus tachycardia -Give 500 ml NS bolus once -f/u CBC, CMP, ammonia levels -Ativan 1 mg PO Q6 PRN for agitation -1:1 observation -c/w HECTORAK protocol for s/s of alcohol withdrawal -f/u ofMental status case discussed with [facility] leader Dr. Martino
[2017-12-24 18:44] LABS: ALB/GLOB RATIO 0.7 (1.0-2.1); ALBUMIN 2.8 g/dL (3.5-5.0); ALT/SGPT 43 U/L (21-72); AST/SGOT 83 U/L (17-59); BLOOD UREA NITROGEN 15 mg/dl (9-20); CALCIUM 7.9 mg/dL (8.4-10.2); GFR AFRICAN-AMERICAN > 60; GFR NON-AFRICAN AMERICAN > 60
[2017-12-25] MEDS ORDERED: Multivitamin (MVI) 10 ML, Folic Acid 1 MG, Thiamine 100 MG in Dextrose 5%/0.45% NS 1,00... IV ONE ×2 (04:16→18:09)
[2017-12-25 04:31] LABS: SQUAMOUS EPITHIAL 1 /hpf (0-5); URINE BACTERIA RARE (<OCC); URINE BILIRUBIN NEGATIVE (NEGATIVE); URINE BLOOD NEGATIVE (NEGATIVE); URINE CLARITY SLIGHTY-CLOUDY (Clear); URINE COLOR AMBER (YELLOW); URINE GLUCOSE (UA) NEG (Normal); URINE HYALINE CAST 0-2 /hpf (0-2); URINE LEUKOCYTE ESTERASE NEG Leu/uL (Negative); URINE PROTEIN NEGATIVE (NEGATIVE)
[2017-12-25 06:16] LABS: HEMOGLOBIN 8.2 g/dL (12.0-18.0); MEAN CELL VOLUME 88.1 fl (80.0-94.0); MEAN CORPUSCULAR HEMOGLOBIN 30.5 pg (27.0-31.0); MEAN CORPUSCULAR HGB CONC 34.6 g/dL (33.0-37.0); RBC 2.71 Mil/uL (4.40-5.90); RED CELL DISTRIBUTION WIDTH 17.7 % (11.5-14.5); WHITE BLOOD COUNT 3.9 K/uL (4.8-10.8)
[2017-12-25] MEDS ORDERED: Lactulose 10 gm/15 ml (Rectal Use) PR ONE ×2 (06:34→10:22)
[2017-12-25 06:38] LABS: ALB/GLOB RATIO 0.7 (1.0-2.1); ALBUMIN 2.5 g/dL (3.5-5.0); ALT/SGPT 40 U/L (21-72); AST/SGOT 66 U/L (17-59); BLOOD UREA NITROGEN 28 mg/dl (9-20); CALCIUM 7.6 mg/dL (8.4-10.2); GFR AFRICAN-AMERICAN > 60; GFR NON-AFRICAN AMERICAN > 60
--- NOTE | 2017-12-25 10:53 | CP.PCM.CON ---
History of Present Illness - History of Present Illness History of Present Illness: Infectious Disease Consultation Note- asked to see this patient at the request of family practice team for bacteremia. HPI- pt. obtained entirely from the medical chart and the family practice team as pt. is lethargic and does not answer any of my questions in ICU. as per med records pt. is a 52 year old male with pmh of ETOh abuse, liver cirrhosis s/p TIPS 2014 , severe esophagitis who had presented to ED with 3 episodes of hematemesis Apparently The patient has presented to the ER multiple times, daily for the last month, and multiple admissions for similar complaints and for breakthrough seizures. per noted he had admitted to ongoing EtOH abuse with intake multiple times this past week as documented by multiple elevated EtOH levels this admission and this month in EMR. He is noncompliant with medications and followup. On presentation pt's Hgb 7.2 which is below is baseline of 9, rectal by ER physician was negative for melena or hematochezia. pt. has been seen by GI during this admission and i'm now asked to evaluate because pt. has GPC in blood cx and febrile. also Pt had [employer] TECHNICIAN earlier and was found to have change in MS and apaprently had CT of braoin which was read as hematoma and also CT of abd/pelvis which was read as typhlitis. pt. is in ICU currently and lethargic and only responds to painful stimuli and bloody discharge seen in NGT . PMHx: As stated in HPI PSHx: TIPS in 2014 FHx: Sister with colon cancer at age 58yo Social: Denies EtOH use for >1 year but EtOH level +4 times in less than the past month; denies tobacco or illicit drug use Endo: EGD - 10/15/2017 - clean based Esophageal ulcer, retained food Colonoscopy - 06/2017 - Poor prep, internal/external hemorrhoids EGD - 04/2017 - LA Grade C esophagitis with visible vessel at EGJ s/p clip and injection of epi, portal hypertensive gastropathy Review of Systems - Review of Systems Review of Systems: ROS- Unable to obtain as pt. is lethargic and not resposnive except to painful stimuli Past Patient History - Infectious Disease Hx of Infectious Diseases: None - Tetanus Immunizations Tetanus Immunization: Unknown - Past Medical History & Family History Past Medical History?: Yes - Past Social History Smoking Status: Light Smoker < 10 Cigarettes Daily Alcohol: Other (last drink a couple of days ago, shot of vodka. Denies alcohol abuse. However, serum alcohol levels 64.) Drugs: Denies Home Situation {Lives}: Other (Lives with his sister) - CARDIAC Hx Cardiac Disorders: Yes (DVT) Hx Angina: No Hx Congestive Heart Failure: No Hx Heart Transplant: No Hx Hypercholesterolemia: No - PULMONARY Hx Respiratory Disorders: No - NEUROLOGICAL Hx Neurological Disorder: No Hx Seizures: Yes - HEENT Hx HEENT Problems: No - RENAL Hx Chronic Kidney Disease: No - ENDOCRINE/METABOLIC Hx Endocrine Disorders: No - HEMATOLOGICAL/ONCOLOGICAL Hx Blood Disorders: Yes (ANEMIA) Hx Cirrhosis: Yes - INTEGUMENTARY Hx Dermatological Problems: No - MUSCULOSKELETAL/RHEUMATOLOGICAL Hx Musculoskeletal Disorders: Yes (MULTIPLE FRACTURE HX) - GASTROINTESTINAL Hx Constipation: No Hx Diarrhea: No Hx Gastroesophageal Reflux: No Hx Hemorrhoids: Yes Hx Nausea: Yes Hx Ulcer: Yes - GENITOURINARY/GYNECOLOGICAL Hx Genitourinary Disorders: No Hx Sexually Transmitted Disorders: No - PSYCHIATRIC Hx Substance Use: Yes - SURGICAL HISTORY Hx Surgeries: Yes Other/Comment: "LEFT FINGER SURGERY" - ANESTHESIA Hx Anesthesia: Yes Hx Anesthesia Reactions: No Meds Allergies/Adverse Reactions: Allergies Allergy/AdvReac Type Severity Reaction Status Date / Time aspirin Allergy NAUSEA Verified 12/21/17 10:26 ibuprofen [From Motrin] Allergy NAUSEA Verified 12/21/17 10:26 naproxen Allergy RASH Verified 12/21/17 10:26 NSAIDS (Non-Steroidal Allergy NAUSEA Verified 12/21/17 10:26 Anti-Inflamma - Medications Medications: Current Medications Chlordiazepoxide (Librium) 50 mg PO Q6 PRN PRN Reason: Agitation Last Admin: 12/24/17 09:59 Dose: 50 mg Folic Acid (Folic Acid) 1 mg PO DAILY JANNIE Last Admin: 12/24/17 10:01 Dose: 1 mg Multivitamins/Vitamin C 10 ml/Folic Acid 1 mg/ Thiamine HCl 100 mg/ Dextrose/ Sodium Chloride 1,011.2 mls @ 100 mls/hr IV .Q10H7M ONE Stop: 12/25/17 14:22 Last Admin: 12/25/17 05:38 Dose: 100 mls/hr Vancomycin HCl 1 gm/ Sodium (Chloride) 250 mls @ 166.667 mls/hr IVPB Q12 JANNIE PRN Reason: Protocol Lactulose (Enulose) 20 gm PO Q8 [facility] Last Admin: 12/25/17 01:28 Dose: Not Given Levetiracetam (Keppra) 500 mg PO BID [facility] Last Admin: 12/24/17 20:19 Dose: 500 mg Lidocaine (Lidoderm) 1 ea TD DAILY PRN PRN Reason: Pain, moderate (4-7) Last Admin: 12/24/17 10:01 Dose: 1 ea Lorazepam (Ativan) 1 mg PO Q6 PRN PRN Reason: Agitation Ondansetron HCl (Zofran Inj) 4 mg IVP Q6 PRN PRN Reason: Nausea/Vomiting Pantoprazole Sodium (Protonix Ec Tab) 40 mg PO BID [facility] Last Admin: 12/24/17 20:20 Dose: 40 mg Thiamine HCl (Vitamin B1 Tab) 100 mg PO DAILY [facility] Last Admin: 12/24/17 10:02 Dose: 100 mg Tobramycin Sulfate (Tobrex 0.3% Ophth Soln) 2 drop OU TID [facility] Last Admin: 12/24/17 18:36 Dose: Not Given Physical Exam - Constitutional Appears: Chronically Ill Additional comments: lethargic - ENT Exam Additional comments: NGT in place draining sanguinous fluid - Respiratory Exam Additional comments: slightly tachypneic decrease breath sounds at right base - Cardiovascular Exam Cardiovascular Exam: Tachycardia, +S1, +S2 - GI/Abdominal Exam GI & Abdominal Exam: Soft Additional comments: bowel sounds heard ND NT - Extremities Exam Additional comments: no edema b/l LE - Neurological Exam Neurological exam: Altered Results - Vital Signs Recent Vital Signs: Last Vital Signs Temp 99.5 F 12/25/17 08:00 Pulse 89 12/25/17 08:00 Resp 20 12/25/17 08:00 BP 108/59 L 12/25/17 08:00 Pulse Ox 97 12/25/17 08:00 - Labs Result Diagrams: 12/25/17 04:45 12/25/17 04:45 Labs: Laboratory Results - last 24 hr 12/24/17 12/24/17 12/24/17 17:53 17:53 18:00 WBC 7.8 D RBC 3.04 L Hgb 9.0 L Hct 26.9 L MCV 88.3 MCH 29.8 MCHC 33.7 RDW 17.8 H Plt Count 72 L D Sodium 138 Potassium 4.0 Chloride 109 H Carbon Dioxide 20 L Anion Gap 13 BUN 15 Creatinine 0.6 L Est GFR ( Amer) > 60 Est GFR (Non-Af Amer) > 60 Random Glucose 110 Calcium 7.9 L Total Bilirubin 3.6 H AST 83 H ALT 43 Alkaline Phosphatase 147 H Ammonia 95 H* D Total Protein 6.7 Albumin 2.8 L D Globulin 3.9 Albumin/Globulin Ratio 0.7 L Urine Color Urine Clarity Urine pH Ur Specific [place] Urine Protein Urine Glucose (UA) Urine Ketones Urine Blood Urine Nitrate Urine Bilirubin Urine Urobilinogen Ur Leukocyte Esterase Urine RBC (Auto) Urine Microscopic WBC Ur Squamous Epith Cells Urine Bacteria Hyaline Casts 12/25/17 12/25/17 12/25/17 04:04 04:45 04:45 WBC 3.9 L RBC 2.71 L Hgb 8.2 L Hct 23.8 L MCV 88.1 MCH 30.5 MCHC 34.6 RDW 17.7 H Plt Count 60 L Sodium 140 Potassium 3.8 Chloride 113 H Carbon Dioxide 18 L Anion Gap 13 BUN 28 H Creatinine 0.7 L Est GFR ( Amer) > 60 Est GFR (Non-Af Amer) > 60 Random Glucose 110 Calcium 7.6 L Total Bilirubin 3.9 H AST 66 H D ALT 40 Alkaline Phosphatase 126 Ammonia Total Protein 6.2 L Albumin 2.5 L Globulin 3.7 Albumin/Globulin Ratio 0.7 L Urine Color [place] Urine Clarity Slighty-cloudy Urine pH 6.0 Ur Specific [place] 1.026 Urine Protein Negative Urine Glucose (UA) Neg Urine Ketones Negative Urine Blood Negative Urine Nitrate Negative Urine Bilirubin Negative Urine Urobilinogen 4.0 Ur Leukocyte Esterase Neg Urine RBC (Auto) 5 H Urine Microscopic WBC 2 Ur Squamous Epith Cells 1 Urine Bacteria Rare Hyaline Casts 0-2 12/25/17 05:00 WBC RBC Hgb Hct MCV MCH MCHC RDW Plt Count Sodium Potassium Chloride Carbon Dioxide Anion Gap BUN Creatinine Est GFR ( Amer) Est GFR (Non-Af Amer) Random Glucose Calcium Total Bilirubin AST ALT Alkaline Phosphatase Ammonia 82 H Total Protein Albumin Globulin Albumin/Globulin Ratio Urine Color Urine Clarity Urine pH Ur Specific [place] Urine Protein Urine Glucose (UA) Urine Ketones Urine Blood Urine Nitrate Urine Bilirubin Urine Urobilinogen Ur Leukocyte Esterase Urine RBC (Auto) Urine Microscopic WBC Ur Squamous Epith Cells Urine Bacteria Hyaline Casts Laboratory Results - last 72 hr 12/21/17 12/22/17 12/23/17 15:00 18:34 05:00 WBC 2.5 L RBC 2.34 L Hgb 6.7 L Hct 20.7 L MCV 88.6 MCH 28.8 MCHC 32.5 L RDW 18.1 H Plt Count 46 L Sodium 138 Potassium 3.7 Chloride 112 H Carbon Dioxide 22 Anion Gap 8 L BUN 16 Creatinine 0.6 L Est GFR ( Amer) > 60 Est GFR (Non-Af Amer) > 60 Random Glucose 99 Calcium 7.5 L Total Bilirubin 3.5 H AST 82 H D ALT 43 Alkaline Phosphatase 122 Ammonia Total Protein 5.8 L Albumin 2.2 L D Globulin 3.6 Albumin/Globulin Ratio 0.6 L Urine Color Urine Clarity Urine pH Ur Specific [place] Urine Protein Urine Glucose (UA) Urine Ketones Urine Blood Urine Nitrate Urine Bilirubin Urine Urobilinogen Ur Leukocyte Esterase Urine RBC (Auto) Urine Microscopic WBC Ur Squamous Epith Cells Urine Bacteria Hyaline Casts Blood Type O POSITIVE Antibody Screen Negative Crossmatch See Detail BBK History Checked Patient has bt 12/23/17 12/23/17 12/24/17 05:00 13:55 05:24 WBC 2.0 L* 2.8 L RBC 2.47 L 2.80 L Hgb 7.2 L 8.3 L Hct 21.9 L 24.9 L MCV 88.6 89.0 MCH 29.0 29.5 MCHC 32.8 L 33.2 RDW 18.0 H 17.2 H Plt Count 54 L 52 L Sodium Potassium Chloride Carbon Dioxide Anion Gap BUN Creatinine Est GFR ( Amer) Est GFR (Non-Af Amer) Random Glucose Calcium Total Bilirubin AST ALT Alkaline Phosphatase Ammonia Total Protein Albumin Globulin Albumin/Globulin Ratio Urine Color Urine Clarity Urine pH Ur Specific [place] Urine Protein Urine Glucose (UA) Urine Ketones Urine Blood Urine Nitrate Urine Bilirubin Urine Urobilinogen Ur Leukocyte Esterase Urine RBC (Auto) Urine Microscopic WBC Ur Squamous Epith Cells Urine Bacteria Hyaline Casts Blood Type O POSITIVE Antibody Screen Negative Crossmatch See Detail BBK History Checked Patient has bt 12/24/17 12/24/17 12/24/17 05:24 17:53 17:53 WBC RBC Hgb Hct MCV MCH MCHC RDW Plt Count Sodium 140 138 Potassium 3.8 4.0 Chloride 112 H 109 H Carbon Dioxide 19 L 20 L Anion Gap 13 13 BUN 13 15 Creatinine 0.6 L 0.6 L Est GFR ( Amer) > 60 > 60 Est GFR (Non-Af Amer) > 60 > 60 Random Glucose 102 110 Calcium 7.8 L 7.9 L Total Bilirubin 3.0 H 3.6 H AST 74 H 83 H ALT 37 43 Alkaline Phosphatase 133 H 147 H Ammonia 95 H* D Total Protein 5.9 L 6.7 Albumin 2.3 L 2.8 L D Globulin 3.6 3.9 Albumin/Globulin Ratio 0.7 L 0.7 L Urine Color Urine Clarity Urine pH Ur Specific [place] Urine Protein Urine Glucose (UA) Urine Ketones Urine Blood Urine Nitrate Urine Bilirubin Urine Urobilinogen Ur Leukocyte Esterase Urine RBC (Auto) Urine Microscopic WBC Ur Squamous Epith Cells Urine Bacteria Hyaline Casts Blood Type Antibody Screen Crossmatch BBK History Checked 12/24/17 12/25/17 12/25/17 18:00 04:04 04:45 WBC 7.8 D 3.9 L RBC 3.04 L 2.71 L Hgb 9.0 L 8.2 L Hct 26.9 L 23.8 L MCV 88.3 88.1 MCH 29.8 30.5 MCHC 33.7 34.6 RDW 17.8 H 17.7 H Plt Count 72 L D 60 L Sodium Potassium Chloride Carbon Dioxide Anion Gap BUN Creatinine Est GFR ( Amer) Est GFR (Non-Af Amer) Random Glucose Calcium Total Bilirubin AST ALT Alkaline Phosphatase Ammonia Total Protein Albumin Globulin Albumin/Globulin Ratio Urine Color [place] Urine Clarity Slighty-cloudy Urine pH 6.0 Ur Specific [place] 1.026 Urine Protein Negative Urine Glucose (UA) Neg Urine Ketones Negative Urine Blood Negative Urine Nitrate Negative Urine Bilirubin Negative Urine Urobilinogen 4.0 Ur Leukocyte Esterase Neg Urine RBC (Auto) 5 H Urine Microscopic WBC 2 Ur Squamous Epith Cells 1 Urine Bacteria Rare Hyaline Casts 0-2 Blood Type Antibody Screen Crossmatch BBK History Checked 12/25/17 12/25/17 04:45 05:00 WBC RBC Hgb Hct MCV MCH MCHC RDW Plt Count Sodium 140 Potassium 3.8 Chloride 113 H Carbon Dioxide 18 L Anion Gap 13 BUN 28 H Creatinine 0.7 L Est GFR ( Amer) > 60 Est GFR (Non-Af Amer) > 60 Random Glucose 110 Calcium 7.6 L Total Bilirubin 3.9 H AST 66 H D ALT 40 Alkaline Phosphatase 126 Ammonia 82 H Total Protein 6.2 L Albumin 2.5 L Globulin 3.7 Albumin/Globulin Ratio 0.7 L Urine Color Urine Clarity Urine pH Ur Specific [place] Urine Protein Urine Glucose (UA) Urine Ketones Urine Blood Urine Nitrate Urine Bilirubin Urine Urobilinogen Ur Leukocyte Esterase Urine RBC (Auto) Urine Microscopic WBC Ur Squamous Epith Cells Urine Bacteria Hyaline Casts Blood Type Antibody Screen Crossmatch BBK History Checked Microbiology 12/24/17 17:53 Blood S.aureus & Coag-Neg Staph PNA FISH - Final 12/24/17 17:53 Blood Blood Culture - Preliminary Gram Positive Cocci 12/24/17 17:53 Blood Gram Stain - Final 12/24/17 18:00 Blood Gram Stain - Final Accession No. : [id number] Patient Name / ID : LIANET ARGUELLES / [id number] Exam Date : 12/25/2017 11:41:36 ( Approved ) Study Comment : Sex / Age : M / 52Y Creator : Adam Chairez MD Dictator : Adam Chairez MD Agriscience Teacher : Associate Sales Manager : Adam Chairez MD Approver2 : Report Date : 12/25/2017 12:41:55 My Comment : PROCEDURE: CT Abdomen and Pelvis without intravenous contrast HISTORY: AMS gram bactermia COMPARISON: CT scan of the abdomen pelvis dated 10/25/2017. TECHNIQUE: Contiguous images were obtained from the domes of the diaphragms to the upper thighs without the administration of intravenous contrast. Oral contrast was not administered. Radiation dose: Total exam DLP = 493.8 mGy-cm. This CT exam was performed using one or more of the following dose reduction techniques: Automated exposure control, adjustment of the mA and/or kV according to patient size, and/or use of iterative reconstruction technique. FINDINGS: LOWER THORAX: Left basilar atelectasis. LIVER: Right hepatic vein to right portal vein TIPS shunt. No gross lesion or ductal dilatation. GALLBLADDER AND BILE DUCTS: Cholelithiasis with gallbladder wall thickening/edema. PANCREAS: Unremarkable. No gross lesion or ductal dilatation. SPLEEN: Splenomegaly. ADRENALS: Unremarkable. No mass. KIDNEYS AND URETERS: Unremarkable. No hydronephrosis. No solid mass. VASCULATURE: Unremarkable. No aortic aneurysm. BOWEL: Small hiatal hernia. Marked ascending colitis with pericolic stranding. No obstruction. No gross mural thickening. APPENDIX: No findings to suggest acute appendicitis. PERITONEUM: Unremarkable. No free fluid. No free air. LYMPH NODES: Unremarkable. No enlarged lymph nodes. BLADDER: Unremarkable. REPRODUCTIVE: Unremarkable. BONES: No acute fracture. Old left 9 to 11th rib fractures. OTHER FINDINGS: None. IMPRESSION: Cholelithiasis with gallbladder wall thickening/ edema may represent acute cholecystitis in the proper clinical setting. Marked ascending colonic wall thickening with pericolic stranding compatible with typhlitis. Redemonstration of TIPS shunt, patency cannot be evaluated in the absence of intravenous contrast. Additional stable findings as above. Findings conveyed to ELY Cindy by Dr. Winn at 12:30 p.m. on 12/25/2017. Accession No. : [id number] Patient Name / ID : LIANET ARGUELLES / [id number] Exam Date : 12/25/2017 11:37:20 ( Approved ) Study Comment : Sex / Age : M / 52Y Creator : Adam Chairez MD Dictator : Adam Chairez MD Agriscience Teacher : Associate Sales Manager : Adam Chairez MD Approver2 : Report Date : 12/25/2017 12:35:39 My Comment : PROCEDURE: CT HEAD WITHOUT CONTRAST. HISTORY: AMS COMPARISON: CT head dated 12/07/17. TECHNIQUE: Axial computed tomography images were obtained through the head/brain without intravenous contrast. Radiation dose: Total exam DLP = 1912.2 mGy-cm. This CT exam was performed using one or more of the following dose reduction techniques: Automated exposure control, adjustment of the mA and/or kV according to patient size, and/or use of iterative reconstruction technique. FINDINGS: HEMORRHAGE: New left cerebral convexity extra-axial low-density collection with questionable areas of acute blood products. Equivocal tiny right frontal extra- axial collection with possible acute blood products. BRAIN: No mass effect or edema. Atrophy. Chronic microvascular ischemic changes. VENTRICLES: Unremarkable. No hydrocephalus. CALVARIUM: Unremarkable. PARANASAL SINUSES: Bilateral maxillary sinus mucosal thickening. MASTOID AIR CELLS: Unremarkable as visualized. No inflammatory changes. OTHER FINDINGS: Left frontal scalp swelling. IMPRESSION: Left frontal scalp swelling. New left cerebral convexity extra-axial low-density collection with questionable areas of acute blood products. Equivocal tiny right frontal extra-axial collection with possible acute blood products. Findings conveyed to ELY White by Dr. Winn at 12:30 pm on 12/25/2017. Accession No. : [id number] Patient Name / ID : LIANET Wilks / [id number] Exam Date : 12/24/2017 16:57:13 ( Approved ) Study Comment : Sex / Age : M / 52Y Creator : Adam Chairez MD Dictator : Adam Chairez MD Agriscience Teacher : Associate Sales Manager : Adam Chairez MD Approver2 : Report Date : 12/24/2017 17:02:41 My Comment : PROCEDURE: CHEST RADIOGRAPH, 1 VIEW HISTORY: fever COMPARISON: Chest radiograph dated 11/26/2017. FINDINGS: LUNGS: Clear. PLEURA: No pneumothorax or pleural fluid seen. CARDIOVASCULAR: Atherosclerotic aortic calcifications. Cardiomediastinal silhouette within normal limits. OSSEOUS STRUCTURES: Unchanged. VISUALIZED UPPER ABDOMEN: Normal. OTHER FINDINGS: None. IMPRESSION: No active disease. Assessment & Plan (1) GI bleed Status: Acute (2) Alcohol abuse Status: Chronic (3) Cholelithiasis Status: Acute (4) Bacteremia Status: Acute - Assessment and Plan (Free Text) Assessment: A/P- 52 year old amle with multiple medical conditions includingETOH abuse, esophagitis, cirrhosis s/p TIPS , admitted with hematemesis and now found to have ? hemorrhage in brain and colitis and typhlitis along with cholecytitis on ct of abd report along with change in MS and GPC bacteremia. source of the bacteremia unclear at this time, however, TIPS should be evaluated to see if it is patent. pt. is pancytoepenic. malignancy should be ruled out as well. plan- check TTE r/o any vegetations. Neuro consult . advise to start pt. on IV vancomycin pending ID and sensititvity of the GPC. keep vanco trough <20. also advise to start pt. on IV zosyn to treat the Typhlitis. GI bleed to be evaluted by GI. heme evaluation advised as well. Thank you for allowing me to take part in the care of this patient. all above d/w family practice team. ICU time 60 minutes.
[2017-12-25] MEDS ORDERED: Lactulose 10 gm/15 ml (Rectal Use) PR SCH (11:00)
--- NOTE | 2017-12-25 11:00 | CP.PCM.PN ---
Addendum entered and electronically signed by Alondra Lombardo MD 12/25/17 14:40 : GCS3, pupillary reflex intact bilaterally. Original Note: Subjective - Date & Time of Evaluation Date of Evaluation: 12/25/17 Time of Evaluation: 10:59 - Subjective Subjective: 52 y/o alcoholic male w/ pmhx significant for cirrhosis who came to ER on 12/21 w / c/o 5x episodes of bloody vomitus. Seen and examined at bed side. ANESTHESIOLOGY FELLOW called last night for HR 140s, temp 102. Ammonia levels were found to be elevated and he was started on lactulose, banana bag. Sent blood and urine cultures. Blood is positive for gram positive cocci. AMS today. Objective - Vital Signs/Intake and Output Vital Signs (last 24 hours): Temp Pulse Resp BP Pulse Ox 99.5 F 89 20 108/59 L 97 12/25/17 08:00 12/25/17 08:00 12/25/17 08:00 12/25/17 08:00 12/25/17 08:00 - Medications Medications: Current Medications Chlordiazepoxide (Librium) 50 mg PO Q6 PRN PRN Reason: Agitation Last Admin: 12/24/17 09:59 Dose: 50 mg Folic Acid (Folic Acid) 1 mg PO DAILY [facility] Last Admin: 12/24/17 10:01 Dose: 1 mg Multivitamins/Vitamin C 10 ml/Folic Acid 1 mg/ Thiamine HCl 100 mg/ Dextrose/ Sodium Chloride 1,011.2 mls @ 100 mls/hr IV .Q10H7M ONE Stop: 12/25/17 14:22 Last Admin: 12/25/17 05:38 Dose: 100 mls/hr Vancomycin HCl 1 gm/ Sodium (Chloride) 250 mls @ 166.667 mls/hr IVPB Q12 JANNIE PRN Reason: Protocol Lactulose (Generlac) 200 gm ID Q1H JANNIE Levetiracetam (Keppra) 500 mg PO BID [facility] Last Admin: 12/24/17 20:19 Dose: 500 mg Lidocaine (Lidoderm) 1 ea TD DAILY PRN PRN Reason: Pain, moderate (4-7) Last Admin: 12/24/17 10:01 Dose: 1 ea Lorazepam (Ativan) 1 mg PO Q6 PRN PRN Reason: Agitation Ondansetron HCl (Zofran Inj) 4 mg IVP Q6 PRN PRN Reason: Nausea/Vomiting Pantoprazole Sodium (Protonix Ec Tab) 40 mg PO BID [facility] Last Admin: 12/24/17 20:20 Dose: 40 mg Thiamine HCl (Vitamin B1 Tab) 100 mg PO DAILY [facility] Last Admin: 12/24/17 10:02 Dose: 100 mg Tobramycin Sulfate (Tobrex 0.3% Ophth Soln) 2 drop OU TID [facility] Last Admin: 12/24/17 18:36 Dose: Not Given - Labs Labs: 12/25/17 04:45 12/25/17 04:45 PT 20.4 Seconds (9.8-13.1) H 12/21/17 15:10 INR 1.8 (0.9-1.2) H 12/21/17 15:10 - Constitutional Appears: Other (Solmnent) - Head Exam Head Exam: NORMAL INSPECTION - Eye Exam Eye Exam: absent: Conjunctival injection Additional comments: pupils equally reactive - ENT Exam ENT Exam: Mucous Membranes Moist - Neck Exam Neck Exam: Normal Inspection. absent: Meningismus, Tenderness - Respiratory Exam Respiratory Exam: Clear to Ausculation Bilateral, NORMAL BREATHING PATTERN - Cardiovascular Exam Cardiovascular Exam: REGULAR RHYTHM, +S1, +S2 - GI/Abdominal Exam GI & Abdominal Exam: Soft, Normal Bowel Sounds. absent: Tenderness - Extremities Exam Extremities Exam: absent: Pedal Edema - Neurological Exam Neurological Exam: absent: Alert, Awake, Oriented x3 Neuro motor strength exam: Left Upper Extremity: 5, Right Upper Extremity: 5, Left Lower Extremity: 5 (Hyperreflexia), Right Lower Extremity: 5 ( Hyperreflexia ) - Skin Skin Exam: Dry, Intact, Warm Assessment and Plan - Assessment and Plan (Free Text) Assessment: 52 y/o alcoholic male w/ pmhx significant for cirrhosis who came to ER on 12/21 w / c/o 5x episodes of bloody vomitus. AMS today. 1)Altered Mental Status -likely 2/2 hepatic encephalopathy vs. DT -ammonia levels 95 yesterday, 82 today -lactic acidosis 1.0 -CT head w/o contrast: left frontal scalp swelling, new left cerebral convexity extra-axial low density collection with questionable areas of acute blood products. Equivocal tiny right frontal extra-axial collection w/ possible acute blood products -neuro consult ordered -Lactulose by GT -IVF banana bag -ABG ordered pH 7.53 Co2 23 po2 72 bicarb 26.6 sat 99 lactate 1.0 -positive blood cultures gram + cocci, will repeat 2) Cholelithiasis Abdominal CT showed cholelithiasis w/ gallbladder wall thickening/edema, possible acute cholecysitis -GI and ID following; appreciate recs 3) Hematemesis: -s/p 3 units of PRBC transfusions -hgb 8.2 - no new episodes of hematemesis or hematochezia -FOBT positive -10/15/17 Upper GI endoscopy showed 7 mm superficial esophageal ulcer -GI consulted, case discussed w/ GI fellow. EGD not indicated at this time as per GI -Colonoscopy (06/2017) Poor prep, internal/external hemorrhoids -EGD (04/2017) - LA Grade C esophagitis with visible vessel at EGJ s/p clip and injection of epi, portal hypertensive gastropathy -will follow CBC -Zofran 4mg IVP Q6 PRN -protonix 40 mg 4)Bilateral Opthalmalgia -no visual changes, no floaters, no drawn down curtains -denies headache -does not change contact lenses as prescribed -CT orbits/facials normal -ordered Tobrex 2 drops OU TID 5) Pancytopenia -likely secondary to cirrhosis -Absolute neutrophil count 1125 mm3 -will monitor w/ follow up labs in AM and trend -consider heme onc consult 6) Seizures: -cont home meds; Keppra 500mg BID 7)Alcohol abuse: -alcohol level 64 (12/21/17) -[facility] protocol -folic acid 1mg PO -Thiamine 100mg PO -Librium 50 mg PO Q6 PRN 8) Cirrhosis: -secondary to alcohol abuse -s/p TIPs -AST>ALT -transaminitis 9)Coagulopathy -likely secondary to liver dysfunction -INR 1.8, PT 20.4 -patient is hemodynamically stable -will monitor 10)Lateral 10th and 11th rib fractures: -lidocaine patches PRN for pain -s/p 1 gm morphine 11) Diet: -liquid diet as per GI 12) DVT prophylaxis: -SCDs
[2017-12-25] MEDS: Pantoprazole 40 mg EC Tab PO SCH ×2 (11:27→16:36)
[2017-12-25] MEDS: Tobramycin 0.3% OPHT SOLN OU SCH ×3 (11:27→16:37)
[2017-12-25] MEDS ORDERED: Chlorhexidine Gluconate 1 APPL/PKT TP ONE (12:09)
--- NOTE | 2017-12-25 12:21 | CP.PCM.CON ---
History of Present Illness - History of Present Illness History of Present Illness: 52 YOM with alcoholic cirrhosis, was admitted 3 days ago with hematamesis, AMS, hepatic encephalopathy, being managed on the floor, but now has become unresponsive with high ammonia level and now transferred to ICU for close monitoring, particularly his resp status. Also has Staph bacteremia, pancytopenia. Review of Systems - Review of Systems Systems not reviewed;Unavailable: Altered Mental Status - Constitutional Constitutional: Lethargy - EENT Eyes: As Per HPI Nose/Mouth/Throat: As Per HPI - Cardiovascular Cardiovascular: As Per HPI, Rapid Heart Rate - Respiratory Respiratory: As Per HPI - Gastrointestinal Gastrointestinal: Hematemesis - Genitourinary Genitourinary: As Per HPI Past Patient History - Infectious Disease Hx of Infectious Diseases: None - Tetanus Immunizations Tetanus Immunization: Unknown - Past Medical History & Family History Past Medical History?: Yes - Past Social History Smoking Status: Light Smoker < 10 Cigarettes Daily Alcohol: Other (last drink a couple of days ago, shot of vodka. Denies alcohol abuse. However, serum alcohol levels 64.) Drugs: Denies Home Situation {Lives}: Other (Lives with his sister) - CARDIAC Hx Cardiac Disorders: Yes (DVT) Hx Angina: No Hx Congestive Heart Failure: No Hx Heart Transplant: No Hx Hypercholesterolemia: No - PULMONARY Hx Respiratory Disorders: No - NEUROLOGICAL Hx Neurological Disorder: No Hx Seizures: Yes - HEENT Hx HEENT Problems: No - RENAL Hx Chronic Kidney Disease: No - ENDOCRINE/METABOLIC Hx Endocrine Disorders: No - HEMATOLOGICAL/ONCOLOGICAL Hx Blood Disorders: Yes (ANEMIA) Hx Cirrhosis: Yes - INTEGUMENTARY Hx Dermatological Problems: No - MUSCULOSKELETAL/RHEUMATOLOGICAL Hx Musculoskeletal Disorders: Yes (MULTIPLE FRACTURE HX) - GASTROINTESTINAL Hx Constipation: No Hx Diarrhea: No Hx Gastroesophageal Reflux: No Hx Hemorrhoids: Yes Hx Nausea: Yes Hx Ulcer: Yes - GENITOURINARY/GYNECOLOGICAL Hx Genitourinary Disorders: No Hx Sexually Transmitted Disorders: No - PSYCHIATRIC Hx Substance Use: Yes - SURGICAL HISTORY Hx Surgeries: Yes Other/Comment: "LEFT FINGER SURGERY" - ANESTHESIA Hx Anesthesia: Yes Hx Anesthesia Reactions: No Meds Allergies/Adverse Reactions: Allergies Allergy/AdvReac Type Severity Reaction Status Date / Time aspirin Allergy NAUSEA Verified 12/21/17 10:26 ibuprofen [From Motrin] Allergy NAUSEA Verified 12/21/17 10:26 naproxen Allergy RASH Verified 12/21/17 10:26 NSAIDS (Non-Steroidal Allergy NAUSEA Verified 12/21/17 10:26 Anti-Inflamma - Medications Medications: Current Medications Chlordiazepoxide (Librium) 50 mg PO Q6 PRN PRN Reason: Agitation Last Admin: 12/24/17 09:59 Dose: 50 mg Folic Acid (Folic Acid) 1 mg PO DAILY [facility] Last Admin: 12/24/17 10:01 Dose: 1 mg Multivitamins/Vitamin C 10 ml/Folic Acid 1 mg/ Thiamine HCl 100 mg/ Dextrose/ Sodium Chloride 1,011.2 mls @ 100 mls/hr IV .Q10H7M ONE Stop: 12/25/17 14:22 Last Admin: 12/25/17 05:38 Dose: 100 mls/hr Vancomycin HCl 1 gm/ Sodium (Chloride) 250 mls @ 166.667 mls/hr IVPB Q12 JANNIE PRN Reason: Protocol Lactulose (Generlac) 200 gm [place] Q1H [facility] Levetiracetam (Keppra) 500 mg PO BID [facility] Last Admin: 12/25/17 11:27 Dose: Not Given Lidocaine (Lidoderm) 1 ea TD DAILY PRN PRN Reason: Pain, moderate (4-7) Last Admin: 12/24/17 10:01 Dose: 1 ea Lorazepam (Ativan) 1 mg PO Q6 PRN PRN Reason: Agitation Ondansetron HCl (Zofran Inj) 4 mg IVP Q6 PRN PRN Reason: Nausea/Vomiting Pantoprazole Sodium (Protonix Ec Tab) 40 mg PO BID [facility] Last Admin: 12/25/17 11:27 Dose: Not Given Thiamine HCl (Vitamin B1 Tab) 100 mg PO DAILY [facility] Last Admin: 12/24/17 10:02 Dose: 100 mg Tobramycin Sulfate (Tobrex 0.3% Ophth Soln) 2 drop OU TID [facility] Last Admin: 12/25/17 11:27 Dose: Not Given Physical Exam - Constitutional Appears: Older Than Stated Age, Combative - Head Exam Head Exam: ATRAUMATIC - Eye Exam Eye Exam: Scleral icterus Pupil Exam: NORMAL ACCOMODATION - Neck Exam Neck exam: Positive for: Normal Inspection - Respiratory Exam Respiratory Exam: NORMAL BREATHING PATTERN - Cardiovascular Exam Cardiovascular Exam: Tachycardia - GI/Abdominal Exam GI & Abdominal Exam: Normal Bowel Sounds Results - Vital Signs Recent Vital Signs: Last Vital Signs Temp 99.5 F 12/25/17 08:00 Pulse 89 12/25/17 08:00 Resp 20 12/25/17 08:00 BP 108/59 L 12/25/17 08:00 Pulse Ox 97 12/25/17 08:00 - Labs Result Diagrams: 12/25/17 04:45 12/25/17 04:45 Labs: Laboratory Results - last 24 hr 12/24/17 12/24/17 12/24/17 17:53 17:53 18:00 WBC 7.8 D RBC 3.04 L Hgb 9.0 L Hct 26.9 L MCV 88.3 MCH 29.8 MCHC 33.7 RDW 17.8 H Plt Count 72 L D Sodium 138 Potassium 4.0 Chloride 109 H Carbon Dioxide 20 L Anion Gap 13 BUN 15 Creatinine 0.6 L Est GFR ( Amer) > 60 Est GFR (Non-Af Amer) > 60 Random Glucose 110 Calcium 7.9 L Total Bilirubin 3.6 H AST 83 H ALT 43 Alkaline Phosphatase 147 H Ammonia 95 H* D Total Protein 6.7 Albumin 2.8 L D Globulin 3.9 Albumin/Globulin Ratio 0.7 L Urine Color Urine Clarity Urine pH Ur Specific [place] Urine Protein Urine Glucose (UA) Urine Ketones Urine Blood Urine Nitrate Urine Bilirubin Urine Urobilinogen Ur Leukocyte Esterase Urine RBC (Auto) Urine Microscopic WBC Ur Squamous Epith Cells Urine Bacteria Hyaline Casts 12/25/17 12/25/17 12/25/17 04:04 04:45 04:45 WBC 3.9 L RBC 2.71 L Hgb 8.2 L Hct 23.8 L MCV 88.1 MCH 30.5 MCHC 34.6 RDW 17.7 H Plt Count 60 L Sodium 140 Potassium 3.8 Chloride 113 H Carbon Dioxide 18 L Anion Gap 13 BUN 28 H Creatinine 0.7 L Est GFR ( Amer) > 60 Est GFR (Non-Af Amer) > 60 Random Glucose 110 Calcium 7.6 L Total Bilirubin 3.9 H AST 66 H D ALT 40 Alkaline Phosphatase 126 Ammonia Total Protein 6.2 L Albumin 2.5 L Globulin 3.7 Albumin/Globulin Ratio 0.7 L Urine Color [place] Urine Clarity Slighty-cloudy Urine pH 6.0 Ur Specific [place] 1.026 Urine Protein Negative Urine Glucose (UA) Neg Urine Ketones Negative Urine Blood Negative Urine Nitrate Negative Urine Bilirubin Negative Urine Urobilinogen 4.0 Ur Leukocyte Esterase Neg Urine RBC (Auto) 5 H Urine Microscopic WBC 2 Ur Squamous Epith Cells 1 Urine Bacteria Rare Hyaline Casts 0-2 12/25/17 05:00 WBC RBC Hgb Hct MCV MCH MCHC RDW Plt Count Sodium Potassium Chloride Carbon Dioxide Anion Gap BUN Creatinine Est GFR ( Amer) Est GFR (Non-Af Amer) Random Glucose Calcium Total Bilirubin AST ALT Alkaline Phosphatase Ammonia 82 H Total Protein Albumin Globulin Albumin/Globulin Ratio Urine Color Urine Clarity Urine pH Ur Specific [place] Urine Protein Urine Glucose (UA) Urine Ketones Urine Blood Urine Nitrate Urine Bilirubin Urine Urobilinogen Ur Leukocyte Esterase Urine RBC (Auto) Urine Microscopic WBC Ur Squamous Epith Cells Urine Bacteria Hyaline Casts Assessment & Plan - Assessment and Plan (Free Text) Assessment: 1-AMS: hepatic encephalopathy with high ammonia level tranferred to ICU for close monitoring , particularly his resp status Lectulose by GT IVF banana bad: folic acid m thiamine 2) Hematemesis: -monitor H&H closely -no signs of active bleeding now -FOBT positive -10/15/17 Upper GI endoscopy showed 7 mm superficial esophageal ulcer -as per GI fellow. EGD not indicated at this time as per GI -Colonoscopy (06/2017) Poor prep, internal/external hemorrhoids -EGD (04/2017) - LA Grade C esophagitis with visible vessel at EGJ s/p clip and injection of epi, portal hypertensive gastropathy --protonix 40 mg 3) Pancytopenia - Secondary to cirrhosis -Absolute neutrophil count 1125 mm3 -Continue to monitor 4) Seizures: -cont home meds; Keppra 500mg BID 5) Cirrhosis: -secondary to alcohol abuse -s/p TIPs -AST>ALT -transaminitis 6) DVT prophylaxis: -SCDs
--- NOTE | 2017-12-25 12:37 | CT ---
PROCEDURE: CT HEAD WITHOUT CONTRAST. HISTORY: AMS COMPARISON: CT head dated 12/07/17. TECHNIQUE: Axial computed tomography images were obtained through the head/brain without intravenous contrast. Radiation dose: Total exam DLP = 1912.2 mGy-cm. This CT exam was performed using one or more of the following dose reduction techniques: Automated exposure control, adjustment of the mA and/or kV according to patient size, and/or use of iterative reconstruction technique. FINDINGS: HEMORRHAGE: New left cerebral convexity extra-axial low-density collection with questionable areas of acute blood products. Equivocal tiny right frontal extra-axial collection with possible acute blood products. BRAIN: No mass effect or edema. Atrophy. Chronic microvascular ischemic changes. VENTRICLES: Unremarkable. No hydrocephalus. CALVARIUM: Unremarkable. PARANASAL SINUSES: Bilateral maxillary sinus mucosal thickening. MASTOID AIR CELLS: Unremarkable as visualized. No inflammatory changes. OTHER FINDINGS: Left frontal scalp swelling. IMPRESSION: Left frontal scalp swelling. New left cerebral convexity extra-axial low-density collection with questionable areas of acute blood products. Equivocal tiny right frontal extra-axial collection with possible acute blood products. Findings conveyed to ELY White by Dr. Winn at 12:30 pm on 12/25/2017.
--- NOTE | 2017-12-25 12:43 | CT ---
PROCEDURE: CT Abdomen and Pelvis without intravenous contrast HISTORY: AMS gram bactermia COMPARISON: CT scan of the abdomen pelvis dated 10/25/2017. TECHNIQUE: Contiguous images were obtained from the domes of the diaphragms to the upper thighs without the administration of intravenous contrast. Oral contrast was not administered. Radiation dose: Total exam DLP = 493.8 mGy-cm. This CT exam was performed using one or more of the following dose reduction techniques: Automated exposure control, adjustment of the mA and/or kV according to patient size, and/or use of iterative reconstruction technique. FINDINGS: LOWER THORAX: Left basilar atelectasis. LIVER: Right hepatic vein to right portal vein TIPS shunt. No gross lesion or ductal dilatation. GALLBLADDER AND BILE DUCTS: Cholelithiasis with gallbladder wall thickening/edema. PANCREAS: Unremarkable. No gross lesion or ductal dilatation. SPLEEN: Splenomegaly. ADRENALS: Unremarkable. No mass. KIDNEYS AND URETERS: Unremarkable. No hydronephrosis. No solid mass. VASCULATURE: Unremarkable. No aortic aneurysm. BOWEL: Small hiatal hernia. Marked ascending colitis with pericolic stranding. No obstruction. No gross mural thickening. APPENDIX: No findings to suggest acute appendicitis. PERITONEUM: Unremarkable. No free fluid. No free air. LYMPH NODES: Unremarkable. No enlarged lymph nodes. BLADDER: Unremarkable. REPRODUCTIVE: Unremarkable. BONES: No acute fracture. Old left 9 to 11th rib fractures. OTHER FINDINGS: None. IMPRESSION: Cholelithiasis with gallbladder wall thickening/ edema may represent acute cholecystitis in the proper clinical setting. Marked ascending colonic wall thickening with pericolic stranding compatible with typhlitis. Redemonstration of TIPS shunt, patency cannot be evaluated in the absence of intravenous contrast. Additional stable findings as above. Findings conveyed to ELY White by Dr. Winn at 12:30 p.m. on 12/25/2017.
[2017-12-25 14:20] LABS: ABG ALLEN TEST YES; ARTERIAL BLOOD GAS HCO3 23.6 mmol/L (21-28); ARTERIAL BLOOD GAS O2 SAT 99.3 % (95-98); ARTERIAL BLOOD GAS PCO2 23 mm/Hg (35-45); ARTERIAL BLOOD GAS PH 7.53 (7.35-7.45); ARTERIAL BLOOD GAS PO2 72 mm/Hg (80-100); ARTERIAL BLOOD GAS TCO2 19.9 mmol/L (22-28)
[2017-12-25] MEDS: Acetaminophen 650mg/20.3ml solution UD NG PRN ×2 (15:05→21:57)
[2017-12-25] MEDS: Piperacillin/Tazobact 4.5 GM in Sodium Chloride 0.9% 100 ML IVPB SCH (17:02)
[2017-12-25 18:27] LABS: SQUAMOUS EPITHIAL < 1 /hpf (0-5); URINE BILIRUBIN NEGATIVE (NEGATIVE); URINE BLOOD SMALL (NEGATIVE); URINE CLARITY SLIGHTY-CLOUDY (Clear); URINE COLOR AMBER (YELLOW); URINE GLUCOSE (UA) NEG (Normal); URINE LEUKOCYTE ESTERASE NEG Leu/uL (Negative); URINE PROTEIN NEGATIVE (NEGATIVE)
--- NOTE | 2017-12-25 19:12 | CP.PCM.CON ---
History of Present Illness - History of Present Illness History of Present Illness: Neurology Consultation Note: Mr. Dillon is a 52-year-old man with a past medical history of alcoholism, GI bleed, hematemesis, who was admitted to ICU for acute encephalopathy and elevated ammonia level. Currently, he is obtunded. CT scan showed multiple areas of chronic infarcts and possible subdural hematomas (minor). Neurology was consulted to assist with the management and care. Review of Systems - Review of Systems All systems: reviewed and no additional remarkable complaints except Past Patient History - Infectious Disease Hx of Infectious Diseases: None - Tetanus Immunizations Tetanus Immunization: Unknown - Past Medical History & Family History Past Medical History?: Yes - Past Social History Smoking Status: Light Smoker < 10 Cigarettes Daily Alcohol: Other (last drink a couple of days ago, shot of vodka. Denies alcohol abuse. However, serum alcohol levels 64.) Drugs: Denies Home Situation {Lives}: Other (Lives with his sister) - CARDIAC Hx Cardiac Disorders: Yes (DVT) Hx Angina: No Hx Congestive Heart Failure: No Hx Heart Transplant: No Hx Hypercholesterolemia: No - PULMONARY Hx Respiratory Disorders: No - NEUROLOGICAL Hx Neurological Disorder: No Hx Seizures: Yes - HEENT Hx HEENT Problems: No - RENAL Hx Chronic Kidney Disease: No - ENDOCRINE/METABOLIC Hx Endocrine Disorders: No - HEMATOLOGICAL/ONCOLOGICAL Hx Blood Disorders: Yes (ANEMIA) Hx Cirrhosis: Yes - INTEGUMENTARY Hx Dermatological Problems: No - MUSCULOSKELETAL/RHEUMATOLOGICAL Hx Musculoskeletal Disorders: Yes (MULTIPLE FRACTURE HX) - GASTROINTESTINAL Hx Constipation: No Hx Diarrhea: No Hx Gastroesophageal Reflux: No Hx Hemorrhoids: Yes Hx Nausea: Yes Hx Ulcer: Yes - GENITOURINARY/GYNECOLOGICAL Hx Genitourinary Disorders: No Hx Sexually Transmitted Disorders: No - PSYCHIATRIC Hx Substance Use: Yes - SURGICAL HISTORY Hx Surgeries: Yes Other/Comment: "LEFT FINGER SURGERY" - ANESTHESIA Hx Anesthesia: Yes Hx Anesthesia Reactions: No Meds Allergies/Adverse Reactions: Allergies Allergy/AdvReac Type Severity Reaction Status Date / Time aspirin Allergy NAUSEA Verified 12/21/17 10:26 ibuprofen [From Motrin] Allergy NAUSEA Verified 12/21/17 10:26 naproxen Allergy RASH Verified 12/21/17 10:26 NSAIDS (Non-Steroidal Allergy NAUSEA Verified 12/21/17 10:26 Anti-Inflamma - Medications Medications: Current Medications Acetaminophen (Tylenol 650mg/20.3ml Solution Ud) 650 mg NG Q6 PRN PRN Reason: Temperature Last Admin: 12/25/17 15:05 Dose: 650 mg Chlordiazepoxide (Librium) 50 mg PO Q6 PRN PRN Reason: Agitation Last Admin: 12/24/17 09:59 Dose: 50 mg Folic Acid (Folic Acid) 1 mg PO DAILY [facility] Last Admin: 12/24/17 10:01 Dose: 1 mg Vancomycin HCl 1 gm/ Sodium (Chloride) 250 mls @ 166.667 mls/hr IVPB Q12 JANNIE PRN Reason: Protocol Last Admin: 12/25/17 12:49 Dose: 166.667 mls/hr Piperacillin Sod/Tazobactam (Sod 4.5 gm/ Sodium Chloride) 100 mls @ 100 mls/hr IVPB Q8 JANNIE PRN Reason: Protocol Last Admin: 12/25/17 17:02 Dose: 100 mls/hr Multivitamins/Vitamin C 10 ml/Folic Acid 1 mg/ Thiamine HCl 100 mg/ Dextrose/ Sodium Chloride 1,011.2 mls @ 100 mls/hr IV .Q10H7M ONE Stop: 12/26/17 04:15 Lactulose (Enulose) 20 gm NG Q1H [facility] Last Admin: 12/25/17 18:57 Dose: 20 gm Levetiracetam (Keppra) 500 mg PO BID [facility] Last Admin: 12/25/17 16:36 Dose: 500 mg Lidocaine (Lidoderm) 1 ea TD DAILY PRN PRN Reason: Pain, moderate (4-7) Last Admin: 12/24/17 10:01 Dose: 1 ea Lorazepam (Ativan) 1 mg PO Q6 PRN PRN Reason: Agitation Ondansetron HCl (Zofran Inj) 4 mg IVP Q6 PRN PRN Reason: Nausea/Vomiting Pantoprazole Sodium (Protonix Ec Tab) 40 mg PO BID [facility] Last Admin: 12/25/17 16:36 Dose: 40 mg Thiamine HCl (Vitamin B1 Tab) 100 mg PO DAILY [facility] Last Admin: 12/24/17 10:02 Dose: 100 mg Tobramycin Sulfate (Tobrex 0.3% Ophth Soln) 2 drop OU TID [facility] Last Admin: 12/25/17 16:37 Dose: Not Given Physical Exam - Neurological Exam Additional comments: Obtunded, Pupils reactive but dilated, corneal response is positive, breathing spontaneously. Moves both lower and upper extremities to painful stimulus and makes a grimace. Does not track when eyes are forced open. Does not follow commands. GCS is 5 Results - Vital Signs Recent Vital Signs: Last Vital Signs Temp 100.1 F H 12/25/17 16:05 Pulse 95 H 12/25/17 18:00 Resp 15 12/25/17 18:00 BP 112/54 L 12/25/17 18:00 Pulse Ox 98 12/25/17 18:00 - Labs Result Diagrams: 12/25/17 04:45 12/25/17 04:45 Labs: Laboratory Results - last 24 hr 12/25/17 12/25/17 12/25/17 04:04 04:45 04:45 WBC 3.9 L RBC 2.71 L Hgb 8.2 L Hct 23.8 L MCV 88.1 MCH 30.5 MCHC 34.6 RDW 17.7 H Plt Count 60 L pCO2 pO2 HCO3 ABG pH ABG Total CO2 ABG O2 Saturation ABG Base Excess Jose Test ABG Potassium A-a O2 Difference Glucose Lactate FiO2 Blood Gas Comments Crit Value Read Back Sodium 140 Potassium 3.8 Chloride 113 H Carbon Dioxide 18 L Anion Gap 13 BUN 28 H Creatinine 0.7 L Est GFR ( Amer) > 60 Est GFR (Non-Af Amer) > 60 Random Glucose 110 Calcium 7.6 L Total Bilirubin 3.9 H AST 66 H D ALT 40 Alkaline Phosphatase 126 Ammonia Total Protein 6.2 L Albumin 2.5 L Globulin 3.7 Albumin/Globulin Ratio 0.7 L Arterial Blood Potassium Urine Color [place] Urine Clarity Slighty-cloudy Urine pH 6.0 Ur Specific [place] 1.026 Urine Protein Negative Urine Glucose (UA) Neg Urine Ketones Negative Urine Blood Negative Urine Nitrate Negative Urine Bilirubin Negative Urine Urobilinogen 4.0 Ur Leukocyte Esterase Neg Urine RBC (Auto) 5 H Urine Microscopic WBC 2 Ur Squamous Epith Cells 1 Urine Bacteria Rare Hyaline Casts 0-2 12/25/17 12/25/17 05:00 14:17 WBC RBC Hgb Hct MCV MCH MCHC RDW Plt Count pCO2 23 L pO2 72 L HCO3 23.6 ABG pH 7.53 H ABG Total CO2 19.9 L ABG O2 Saturation 99.3 H ABG Base Excess -1.7 Jose Test Yes ABG Potassium 3.4 L A-a O2 Difference 49.0 Glucose 124 H Lactate 1.0 FiO2 21.0 Blood Gas Comments Room air Crit Value Read Back N Sodium 136.0 Potassium Chloride 113.0 H Carbon Dioxide Anion Gap BUN Creatinine Est GFR ( Amer) Est GFR (Non-Af Amer) Random Glucose Calcium Total Bilirubin AST ALT Alkaline Phosphatase Ammonia 82 H Total Protein Albumin Globulin Albumin/Globulin Ratio Arterial Blood Potassium 3.4 L Urine Color Urine Clarity Urine pH Ur Specific [place] Urine Protein Urine Glucose (UA) Urine Ketones Urine Blood Urine Nitrate Urine Bilirubin Urine Urobilinogen Ur Leukocyte Esterase Urine RBC (Auto) Urine Microscopic WBC Ur Squamous Epith Cells Urine Bacteria Hyaline Casts Assessment & Plan (1) Hepatic encephalopathy Assessment and Plan: Continue medical management to improve ammonia level. Status: Acute Priority: High (2) Subdural hematoma Assessment and Plan: Likely not a cause of his mental status changes, consult neurosugery for opinion. Continue Keppra at current dose. Plan for EEG on Wednesday. Status: Acute Priority: High
--- NOTE | 2017-12-25 19:15 | CP.PCM.PN ---
<Reyes Rangel - Last Filed: 12/25/17 19:16> Subjective - Date & Time of Evaluation Date of Evaluation: 12/25/17 Time of Evaluation: 13:00 - Subjective Subjective: PGY5 GI Follow-up Pt seen and examined bedside Obtunded Change in mental status from last seen Hgb stable ROS: 12 point ROS could not be conducted Objective - Vital Signs/Intake and Output Vital Signs (last 24 hours): Temp Pulse Resp BP Pulse Ox 100.1 F H 95 H 15 112/54 L 98 12/25/17 16:05 12/25/17 18:00 12/25/17 18:00 12/25/17 18:00 12/25/17 18:00 Intake and Output: 12/25/17 12/26/17 18:59 06:59 Intake Total 950 Output Total 350 Balance 600 - Medications Medications: Current Medications Acetaminophen (Tylenol 650mg/20.3ml Solution Ud) 650 mg NG Q6 PRN PRN Reason: Temperature Last Admin: 12/25/17 15:05 Dose: 650 mg Chlordiazepoxide (Librium) 50 mg PO Q6 PRN PRN Reason: Agitation Last Admin: 12/24/17 09:59 Dose: 50 mg Folic Acid (Folic Acid) 1 mg PO DAILY [facility] Last Admin: 12/24/17 10:01 Dose: 1 mg Vancomycin HCl 1 gm/ Sodium (Chloride) 250 mls @ 166.667 mls/hr IVPB Q12 JANNIE PRN Reason: Protocol Last Admin: 12/25/17 12:49 Dose: 166.667 mls/hr Piperacillin Sod/Tazobactam (Sod 4.5 gm/ Sodium Chloride) 100 mls @ 100 mls/hr IVPB Q8 JANNIE PRN Reason: Protocol Last Admin: 12/25/17 17:02 Dose: 100 mls/hr Multivitamins/Vitamin C 10 ml/Folic Acid 1 mg/ Thiamine HCl 100 mg/ Dextrose/ Sodium Chloride 1,011.2 mls @ 100 mls/hr IV .Q10H7M ONE Stop: 12/26/17 04:15 Lactulose (Enulose) 20 gm NG Q1H JANNIE Last Admin: 12/25/17 18:57 Dose: 20 gm Levetiracetam (Keppra) 500 mg PO BID [facility]ANN[facility] Last Admin: 12/25/17 16:36 Dose: 500 mg Lidocaine (Lidoderm) 1 ea TD DAILY PRN PRN Reason: Pain, moderate (4-7) Last Admin: 12/24/17 10:01 Dose: 1 ea Lorazepam (Ativan) 1 mg PO Q6 PRN PRN Reason: Agitation Ondansetron HCl (Zofran Inj) 4 mg IVP Q6 PRN PRN Reason: Nausea/Vomiting Pantoprazole Sodium (Protonix Ec Tab) 40 mg PO BID [facility] Last Admin: 12/25/17 16:36 Dose: 40 mg Thiamine HCl (Vitamin B1 Tab) 100 mg PO DAILY [facility] Last Admin: 12/24/17 10:02 Dose: 100 mg Tobramycin Sulfate (Tobrex 0.3% Ophth Soln) 2 drop OU TID [facility] Last Admin: 12/25/17 16:37 Dose: Not Given - Labs Labs: 12/25/17 04:45 12/25/17 04:45 PT 20.4 Seconds (9.8-13.1) H 12/21/17 15:10 INR 1.8 (0.9-1.2) H 12/21/17 15:10 - Constitutional Appears: No Acute Distress, Confused - Head Exam Head Exam: ATRAUMATIC, NORMOCEPHALIC - Eye Exam Eye Exam: Normal appearance - ENT Exam ENT Exam: Mucous Membranes Moist, Normal Exam - Neck Exam Neck Exam: Normal Inspection - Respiratory Exam Respiratory Exam: Clear to Ausculation Bilateral, NORMAL BREATHING PATTERN. absent: Rales, Rhonchi, Wheezes, Respiratory Distress - Cardiovascular Exam Cardiovascular Exam: REGULAR RHYTHM, +S1, +S2 - GI/Abdominal Exam GI & Abdominal Exam: Soft, Normal Bowel Sounds. absent: Firm, Guarding, Rigid, Tenderness, Organomegaly - Extremities Exam Extremities Exam: absent: Joint Swelling, Pedal Edema - Neurological Exam Neurological Exam: Altered - Psychiatric Exam Additional comments: could not assess due to AMS - Skin Skin Exam: Dry, Intact, Normal Color, Warm Assessment and Plan - Assessment and Plan (Free Text) Assessment: Patient is a 52yo male with PMHx significant for decompensated EtOH cirrhosis s/ p TIPS (2014), severe esophagitis and recently noted esophageal ulcer (September), EtOH withdrawal seizures who presented to the ED with complaint of hematemesis and hematochezia Ascending/cecal colitis Bacteremia Hematemesis/hematochezia-resolved HE grade 3 Anemia likely 2/2 above; r/o PUD, malignancy, varicies, esophageal ulcer Hx Decompensated EtOH cirrhosis s/p TIPS, MELD 18 on admission, DF:45 Hx Esophageal ulcer clean based Suspected gastroparesis EtOH abuse/intoxication Hx of large internal/external hemorrhoids Plan: -Continue supportive care -No active GI bleeding; no further hematemesis or melena since admission -transfuse to keep hgb > 7 -Monitor H/H -Remains hemodynamically stable -hold diet until more alert, aspiration risk -though DF>25, will not start steroids due to high probab of starting to consume ETOH after discharge -Lactulose VT, hrly until 2 BM -agree with zosyn and Vancomycin as per ID D/W Dr. Bradley <Gage Bradley - Last Filed: 12/25/17 20:04> Objective - Vital Signs/Intake and Output Vital Signs (last 24 hours): Temp Pulse Resp BP Pulse Ox 100.1 F H 95 H 15 112/54 L 98 12/25/17 16:05 12/25/17 18:00 12/25/17 18:00 12/25/17 18:00 12/25/17 18:00 Intake and Output: 12/25/17 12/26/17 18:59 06:59 Intake Total 950 Output Total 350 Balance 600 - Medications Medications: Current Medications Acetaminophen (Tylenol 650mg/20.3ml Solution Ud) 650 mg NG Q6 PRN PRN Reason: Temperature Last Admin: 12/25/17 15:05 Dose: 650 mg Chlordiazepoxide (Librium) 50 mg PO Q6 PRN PRN Reason: Agitation Last Admin: 12/24/17 09:59 Dose: 50 mg Folic Acid (Folic Acid) 1 mg PO DAILY [facility] Last Admin: 12/24/17 10:01 Dose: 1 mg Vancomycin HCl 1 gm/ Sodium (Chloride) 250 mls @ 166.667 mls/hr IVPB Q12 JANNIE PRN Reason: Protocol Last Admin: 12/25/17 12:49 Dose: 166.667 mls/hr Piperacillin Sod/Tazobactam (Sod 4.5 gm/ Sodium Chloride) 100 mls @ 100 mls/hr IVPB Q8 JANNIE PRN Reason: Protocol Last Admin: 12/25/17 17:02 Dose: 100 mls/hr Folic Acid 1 mg/ Thiamine HCl 100 mg/ Dextrose/Sodium Chloride 1,001.2 mls @ 100 mls/hr IV .Q10H1M ONE Stop: 12/26/17 04:09 Lactulose (Enulose) 20 gm NG Q1H [facility] Last Admin: 12/25/17 18:57 Dose: 20 gm Levetiracetam (Keppra) 500 mg PO BID [facility] Last Admin: 12/25/17 16:36 Dose: 500 mg Lidocaine (Lidoderm) 1 ea TD DAILY PRN PRN Reason: Pain, moderate (4-7) Last Admin: 12/24/17 10:01 Dose: 1 ea Lorazepam (Ativan) 1 mg PO Q6 PRN PRN Reason: Agitation Ondansetron HCl (Zofran Inj) 4 mg IVP Q6 PRN PRN Reason: Nausea/Vomiting Pantoprazole Sodium (Protonix Ec Tab) 40 mg PO BID [facility] Last Admin: 12/25/17 16:36 Dose: 40 mg Thiamine HCl (Vitamin B1 Tab) 100 mg PO DAILY [facility] Last Admin: 12/24/17 10:02 Dose: 100 mg Tobramycin Sulfate (Tobrex 0.3% Ophth Soln) 2 drop OU TID [facility] Last Admin: 12/25/17 16:37 Dose: Not Given - Labs Labs: 12/25/17 04:45 12/25/17 04:45 PT 20.4 Seconds (9.8-13.1) H 12/21/17 15:10 INR 1.8 (0.9-1.2) H 12/21/17 15:10 Attending/Attestation - Attestation I have personally seen and examined this patient.: Yes I have fully participated in the care of the patient.: Yes I have reviewed all pertinent clinical information, including history, physical exam and plan: Yes Notes (Text): 12/25/17 20:02 This is a 52 yo male with PMHx significant for decompensated EtOH cirrhosis s/p TIPS (2014), severe esophagitis and recently noted esophageal ulcer (October 15, 2017), EtOH withdrawal seizures who presented to the ED with complaint of hematemesis and hematochezia now resolved. GI reconsulted for grade 3 HE. Blood cultures are growing gram positive cocci. CTAP shows cecal colitis. Agree with antibiotics. HE worsened due to infection. Lactulose as tolerated. NPO due to AMS. Aspiration precautions. Lactulose enemas.
[2017-12-25] MEDS ORDERED: THIAMINE IV ONE (19:22)
[2017-12-25] MEDS ORDERED: DEXTROSE IV ONE (19:22)
[2017-12-25] MEDS ORDERED: [UNRECOGNIZED DRUG - OTHER] IV ONE (19:22)
[2017-12-25] MEDS ORDERED: FOLIC ACID IV ONE (19:22)
[2017-12-26 05:50] LABS: MEAN CELL VOLUME 90.2 fl (80.0-94.0); MEAN CORPUSCULAR HEMOGLOBIN 30.1 pg (27.0-31.0); MEAN CORPUSCULAR HGB CONC 33.3 g/dL (33.0-37.0); RBC 2.65 Mil/uL (4.40-5.90); RED CELL DISTRIBUTION WIDTH 19.1 % (11.5-14.5); WHITE BLOOD COUNT 3.8 K/uL (4.8-10.8)
[2017-12-26 06:14] LABS: ALB/GLOB RATIO 0.6 (1.0-2.1); ALBUMIN 2.4 g/dL (3.5-5.0); ALT/SGPT 36 U/L (21-72); AST/SGOT 70 U/L (17-59); BLOOD UREA NITROGEN 22 mg/dl (9-20); CALCIUM 7.5 mg/dL (8.4-10.2); GFR AFRICAN-AMERICAN > 60; GFR NON-AFRICAN AMERICAN > 60
--- NOTE | 2017-12-26 07:47 | CP.PCM.PN ---
Subjective - Date & Time of Evaluation Date of Evaluation: 12/26/17 Time of Evaluation: 07:44 - Subjective Subjective: Mr. Sepulveda was seen and examined at the bedside in ICU. He remains obtunded , does not open his eyes with both verbal and tactile stimuli. His pupils remains mydriatic and brisk to response to light accommodation, withdraws to pain stimuli with no posturing noted. There was no untoward events overnight. Objective - Vital Signs/Intake and Output Vital Signs (last 24 hours): Temp Pulse Resp BP Pulse Ox 99.1 F 85 17 126/56 L 99 12/26/17 04:00 12/26/17 06:00 12/26/17 06:00 12/26/17 06:00 12/26/17 06:00 Intake and Output: 12/26/17 12/26/17 06:59 18:59 Intake Total 400 Output Total 450 Balance -50 - Medications Medications: Current Medications Acetaminophen (Tylenol 650mg/20.3ml Solution Ud) 650 mg NG Q6 PRN PRN Reason: Temperature Last Admin: 12/25/17 21:57 Dose: 650 mg Chlordiazepoxide (Librium) 50 mg PO Q6 PRN PRN Reason: Agitation Last Admin: 12/24/17 09:59 Dose: 50 mg Folic Acid (Folic Acid) 1 mg PO DAILY [facility] Last Admin: 12/24/17 10:01 Dose: 1 mg Vancomycin HCl 1 gm/ Sodium (Chloride) 250 mls @ 166.667 mls/hr IVPB Q12 JANNIE PRN Reason: Protocol Last Admin: 12/25/17 21:43 Dose: 166.667 mls/hr Piperacillin Sod/Tazobactam (Sod 4.5 gm/ Sodium Chloride) 100 mls @ 100 mls/hr IVPB Q8 JANNIE PRN Reason: Protocol Last Admin: 12/25/17 17:02 Dose: 100 mls/hr Levetiracetam (Keppra) 500 mg PO BID [facility] Last Admin: 12/25/17 16:36 Dose: 500 mg Lidocaine (Lidoderm) 1 ea TD DAILY PRN PRN Reason: Pain, moderate (4-7) Last Admin: 12/24/17 10:01 Dose: 1 ea Lorazepam (Ativan) 1 mg PO Q6 PRN PRN Reason: Agitation Ondansetron HCl (Zofran Inj) 4 mg IVP Q6 PRN PRN Reason: Nausea/Vomiting Pantoprazole Sodium (Protonix Ec Tab) 40 mg PO BID [facility] Last Admin: 12/25/17 16:36 Dose: 40 mg Thiamine HCl (Vitamin B1 Tab) 100 mg PO DAILY [facility] Last Admin: 12/24/17 10:02 Dose: 100 mg Tobramycin Sulfate (Tobrex 0.3% Ophth Soln) 2 drop OU TID [facility] Last Admin: 12/25/17 16:37 Dose: Not Given - Labs Labs: 12/26/17 04:40 12/26/17 04:40 PT 20.4 Seconds (9.8-13.1) H 12/21/17 15:10 INR 1.8 (0.9-1.2) H 12/21/17 15:10 - Constitutional Appears: No Acute Distress - Head Exam Head Exam: NORMAL INSPECTION - Eye Exam Pupil Exam: Mydriatic Additional comments: obtunded, bilaterally 4 mm - Neurological Exam Neuro motor strength exam: Left Upper Extremity: 2/1, Right Upper Extremity: 2/1 , Left Lower Extremity: 2/1, Right Lower Extremity: 2/1 Additional comments: does not open his eyes with both verbal and tactile stimuli. His pupils remains mydriatic and brisk to response to light accommodation, withdraws to pain stimuli with no posturing noted. Assessment and Plan (1) Subdural hematoma Assessment & Plan: Case discussed with DR. Henry, continue current medical regimen. Pending result of repeat CT scan of the head, EEG in am. Recommend normothermic, blood pressure control, keep head of the head elevated at least 30 degrees. Status: Acute (2) Encephalopathy acute Assessment & Plan: Case discussed with DR. Henry, continue current medical regimen including monitoring of ammonia level, treat any electrolyte abnormalities. Status: Acute
--- NOTE | 2017-12-26 08:44 | CP.PCM.PN ---
Subjective - Date & Time of Evaluation Date of Evaluation: 12/26/17 Time of Evaluation: 08:44 - Subjective Subjective: pt seen and examined at bedside this morning. Afebrile since 22:00. Labs/ consults/imaging reviewed. Currently lying in bed, obtunded, NAD. Maintaining airway w/o difficulty. Head of bed elevated. More responsive to painful stimuli this morning but does not wake up or react to voice. Pupils are symmetric b/l and reactive to light. Abdomen soft/nonrigid, deep palpation does not cause withdrawal from pain. Vitals stable. Objective - Vital Signs/Intake and Output Vital Signs (last 24 hours): Temp Pulse Resp BP Pulse Ox 98.7 F 85 14 120/59 L 100 12/26/17 08:00 12/26/17 08:00 12/26/17 08:00 12/26/17 08:00 12/26/17 08:00 Intake and Output: 12/26/17 12/26/17 06:59 18:59 Intake Total 400 Output Total 450 Balance -50 - Medications Medications: Current Medications Acetaminophen (Tylenol 650mg/20.3ml Solution Ud) 650 mg NG Q6 PRN PRN Reason: Temperature Last Admin: 12/25/17 21:57 Dose: 650 mg Folic Acid (Folic Acid) 1 mg PO DAILY [facility] Last Admin: 12/24/17 10:01 Dose: 1 mg Vancomycin HCl 1 gm/ Sodium (Chloride) 250 mls @ 166.667 mls/hr IVPB Q12 JANNIE PRN Reason: Protocol Last Admin: 12/25/17 21:43 Dose: 166.667 mls/hr Piperacillin Sod/Tazobactam (Sod 4.5 gm/ Sodium Chloride) 100 mls @ 100 mls/hr IVPB Q8 JANNIE PRN Reason: Protocol Last Admin: 12/25/17 17:02 Dose: 100 mls/hr Levetiracetam (Keppra) 500 mg PO BID [facility] Last Admin: 12/25/17 16:36 Dose: 500 mg Lidocaine (Lidoderm) 1 ea TD DAILY PRN PRN Reason: Pain, moderate (4-7) Last Admin: 12/24/17 10:01 Dose: 1 ea Lorazepam (Ativan) 1 mg PO Q6 PRN PRN Reason: Agitation Ondansetron HCl (Zofran Inj) 4 mg IVP Q6 PRN PRN Reason: Nausea/Vomiting Pantoprazole Sodium (Protonix Ec Tab) 40 mg PO BID [facility] Last Admin: 12/25/17 16:36 Dose: 40 mg Thiamine HCl (Vitamin B1 Tab) 100 mg PO DAILY [facility] Last Admin: 12/24/17 10:02 Dose: 100 mg Tobramycin Sulfate (Tobrex 0.3% Ophth Soln) 2 drop OU TID [facility] Last Admin: 12/25/17 16:37 Dose: Not Given - Labs Labs: 12/26/17 04:40 12/26/17 04:40 PT 20.4 Seconds (9.8-13.1) H 12/21/17 15:10 INR 1.8 (0.9-1.2) H 12/21/17 15:10 - Constitutional Appears: No Acute Distress, Other (obtunded ) - Head Exam Head Exam: ATRAUMATIC, NORMOCEPHALIC - Eye Exam Eye Exam: Scleral icterus. absent: Nystagmus Pupil Exam: PERRL. absent: Fixed, Irregular, Miosis, Mydriatic - ENT Exam ENT Exam: Mucous Membranes Moist - Neck Exam Neck Exam: Full ROM. absent: Lymphadenopathy, Meningismus Additional comments: negative kernig/brudzinski signs. no nuchal rigidity. - Respiratory Exam Respiratory Exam: Clear to Ausculation Bilateral, NORMAL BREATHING PATTERN. absent: Rales, Rhonchi, Wheezes - Cardiovascular Exam Cardiovascular Exam: REGULAR RHYTHM, RRR, +S1, +S2. absent: Bradycardia, Tachycardia, JVD, Murmur - GI/Abdominal Exam GI & Abdominal Exam: Soft, Normal Bowel Sounds. absent: Distended, Rigid - Extremities Exam Extremities Exam: Normal Capillary Refill - Neurological Exam Neurological Exam: Altered, Reflexes Normal Neuro motor strength exam: Right Lower Extremity: 3 Additional comments: GCS 6 today reflexes equal b/l no decortication/decerebate posturing appreciated good muscle tone - Skin Skin Exam: Dry, Intact, Warm Additional comments: more jaundiced than baseline Assessment and Plan - Assessment and Plan (Free Text) Assessment: 52 y/o alcoholic male w/ pmhx significant for cirrhosis whom was orginially admitted for upper GI bleed but now transferred to ICU due to altered mental status. Plan: 1) Altered Mental Status -likely 2/2 hepatic encephalopathy/bactermia -ammonia levels 95 on 12/24, started on Lactulose via NG -CT head w/o contrast: left frontal scalp swelling, new left cerebral convexity extra-axial low density collection with questionable areas of acute blood products. Equivocal tiny right frontal extra-axial collection w/ possible acute blood products -neuro consult: likely 2/2 to hepatic encephalopathy, but recommends neurosurgery consult. Repeat Head CT pending and plan for EEG Wednesday. Keppra level pending. D/C librium. -Lactulose titrate up to 2 BM per day 2) Bacteremia -blood cultures positive for Gram + Cocci in Clusters -UA: wnl -Urine Cx: probable contamination -febrile -elevated WBC count as per baseline comparisons -Abd/Pelvis CT: possible acute cholecystitis, typhlitis -ID on board -started on Vancomycin 1gm Q12H, Zosyn added -goal Vanco trough <20, pending -TTE Pending -monitor vitals/labs -fever control as ordered 3) Upper GI Bleed -resolved -s/p 3 units of PRBC transfusions -H/H: -10/15/17 Upper GI endoscopy showed 7 mm superficial esophageal ulcer -GI consulted, case discussed w/ GI fellow. EGD not indicated at this time as per GI -Colonoscopy (06/2017) Poor prep, internal/external hemorrhoids -EGD (04/2017) - LA Grade C esophagitis with visible vessel at EGJ s/p clip and injection of epi, portal hypertensive gastropathy -will follow CBC -Zofran 4mg IVP Q6 PRN -protonix 40 mg 4) Pancytopenia -chronic -bone marrow suppression 2/2 to etoh abuse/liver failure -Absolute neutrophil count 1125 mm3 -will monitor w/ follow up labs in AM and trend -consider heme onc consult 5) Hx of Seizures: -neurology on board, will follow up further recommnedations -cont home meds; Keppra 500mg BID -keppra level pending -EEG pending 6) History of ETOH abuse: -alcohol level 64 (12/21/17) -[facility] protocol -folic acid 1mg PO -Thiamine 100mg PO -D/C Librium 50 mg PO Q6 PRN -Clonidine PRN 7)Coagulopathy -secondary to liver dysfunction -INR 1.8, PT 20.4 -patient is hemodynamically stable -SCDs -will monitor 8) Lateral 10th and 11th rib fractures: -nondisplaced -lidocaine patches PRN for pain -s/p 1 gm morphine 9) Diet: -altered GI/hepatic 10) DVT prophylaxis: -SCDs 11) Code Status -full code
[2017-12-26] MEDS: Piperacillin/Tazobact 4.5 GM in Sodium Chloride 0.9% 100 ML IVPB SCH ×2 (08:51→17:33)
[2017-12-26] MEDS: Pantoprazole 40 mg EC Tab PO SCH ×2 (08:55→17:30)
[2017-12-26] MEDS: Tobramycin 0.3% OPHT SOLN OU SCH ×3 (09:38→17:31)
[2017-12-26] MEDS ORDERED: Potassium Chloride 20 mEq/15 ml LIQ UD NG ONE (10:02)
--- NOTE | 2017-12-26 10:27 | CP.PCM.CON ---
History of Present Illness - History of Present Illness History of Present Illness: Dictated Relatively small chronic L SDH min mass effect Not responsible for obtundation suggest HOB elevation f/u CT am Past Patient History - Infectious Disease Hx of Infectious Diseases: None - Tetanus Immunizations Tetanus Immunization: Unknown - Past Medical History & Family History Past Medical History?: Yes - Past Social History Smoking Status: Light Smoker < 10 Cigarettes Daily Alcohol: Other (last drink a couple of days ago, shot of vodka. Denies alcohol abuse. However, serum alcohol levels 64.) Drugs: Denies Home Situation {Lives}: Other (Lives with his sister) - CARDIAC Hx Cardiac Disorders: Yes (DVT) Hx Angina: No Hx Congestive Heart Failure: No Hx Heart Transplant: No Hx Hypercholesterolemia: No - PULMONARY Hx Respiratory Disorders: No - NEUROLOGICAL Hx Neurological Disorder: No Hx Seizures: Yes - HEENT Hx HEENT Problems: No - RENAL Hx Chronic Kidney Disease: No - ENDOCRINE/METABOLIC Hx Endocrine Disorders: No - HEMATOLOGICAL/ONCOLOGICAL Hx Blood Disorders: Yes (ANEMIA) Hx Cirrhosis: Yes - INTEGUMENTARY Hx Dermatological Problems: No - MUSCULOSKELETAL/RHEUMATOLOGICAL Hx Musculoskeletal Disorders: Yes (MULTIPLE FRACTURE HX) - GASTROINTESTINAL Hx Constipation: No Hx Diarrhea: No Hx Gastroesophageal Reflux: No Hx Hemorrhoids: Yes Hx Nausea: Yes Hx Ulcer: Yes - GENITOURINARY/GYNECOLOGICAL Hx Genitourinary Disorders: No Hx Sexually Transmitted Disorders: No - PSYCHIATRIC Hx Substance Use: Yes - SURGICAL HISTORY Hx Surgeries: Yes Other/Comment: "LEFT FINGER SURGERY" - ANESTHESIA Hx Anesthesia: Yes Hx Anesthesia Reactions: No Meds Allergies/Adverse Reactions: Allergies Allergy/AdvReac Type Severity Reaction Status Date / Time aspirin Allergy NAUSEA Verified 12/21/17 10:26 ibuprofen [From Motrin] Allergy NAUSEA Verified 12/21/17 10:26 naproxen Allergy RASH Verified 12/21/17 10:26 NSAIDS (Non-Steroidal Allergy NAUSEA Verified 12/21/17 10:26 Anti-Inflamma - Medications Medications: Current Medications Acetaminophen (Tylenol 650mg/20.3ml Solution Ud) 650 mg NG Q6 PRN PRN Reason: Temperature Last Admin: 12/25/17 21:57 Dose: 650 mg Folic Acid (Folic Acid) 1 mg PO DAILY [facility] Last Admin: 12/26/17 09:26 Dose: Not Given Vancomycin HCl 1 gm/ Sodium (Chloride) 250 mls @ 166.667 mls/hr IVPB Q12 JANNIE PRN Reason: Protocol Last Admin: 12/26/17 08:58 Dose: 166.667 mls/hr Piperacillin Sod/Tazobactam (Sod 4.5 gm/ Sodium Chloride) 100 mls @ 100 mls/hr IVPB Q8 JANNIE PRN Reason: Protocol Last Admin: 12/26/17 08:51 Dose: 100 mls/hr Levetiracetam (Keppra) 500 mg PO BID [facility] Last Admin: 12/26/17 08:55 Dose: 500 mg Lidocaine (Lidoderm) 1 ea TD DAILY PRN PRN Reason: Pain, moderate (4-7) Last Admin: 12/24/17 10:01 Dose: 1 ea Lorazepam (Ativan) 1 mg PO Q6 PRN PRN Reason: Agitation Ondansetron HCl (Zofran Inj) 4 mg IVP Q6 PRN PRN Reason: Nausea/Vomiting Pantoprazole Sodium (Protonix Ec Tab) 40 mg PO BID [facility] Last Admin: 12/26/17 08:55 Dose: 40 mg Thiamine HCl (Vitamin B1 Tab) 100 mg PO DAILY [facility] Last Admin: 12/26/17 09:27 Dose: Not Given Tobramycin Sulfate (Tobrex 0.3% Oph Soln) 2 drop OU TID [facility] Last Admin: 12/26/17 09:38 Dose: 2 drop Results - Vital Signs Recent Vital Signs: Last Vital Signs Temp 98.7 F 12/26/17 08:00 Pulse 85 12/26/17 08:00 Resp 14 12/26/17 08:00 BP 120/59 L 12/26/17 08:00 Pulse Ox 100 12/26/17 08:00 - Labs Result Diagrams: 12/26/17 04:40 12/26/17 04:40 Labs: Laboratory Results - last 24 hr 12/25/17 12/25/17 12/26/17 14:17 17:46 04:40 WBC 3.8 L RBC 2.65 L Hgb 8.0 L Hct 23.9 L MCV 90.2 D MCH 30.1 MCHC 33.3 RDW 19.1 H Plt Count 63 L pCO2 23 L pO2 72 L HCO3 23.6 ABG pH 7.53 H ABG Total CO2 19.9 L ABG O2 Saturation 99.3 H ABG Base Excess -1.7 Jose Test Yes ABG Potassium 3.4 L A-a O2 Difference 49.0 Sodium 136.0 Chloride 113.0 H Glucose 124 H Lactate 1.0 FiO2 21.0 Blood Gas Comments Room air Crit Value Read Back N Potassium Carbon Dioxide Anion Gap BUN Creatinine Est GFR ( Amer) Est GFR (Non-Af Amer) Random Glucose Calcium Total Bilirubin AST ALT Alkaline Phosphatase Total Protein Albumin Globulin Albumin/Globulin Ratio Arterial Blood Potassium 3.4 L Urine Color [place] Urine Clarity Slighty-cloudy Urine pH 6.0 Ur Specific [place] 1.024 Urine Protein Negative Urine Glucose (UA) Neg Urine Ketones Negative Urine Blood Small Urine Nitrate Negative Urine Bilirubin Negative Urine Urobilinogen 4.0 Ur Leukocyte Esterase Neg Urine RBC (Auto) 6 H Urine Microscopic WBC 4 Ur Squamous Epith Cells < 1 12/26/17 04:40 WBC RBC Hgb Hct MCV MCH MCHC RDW Plt Count pCO2 pO2 HCO3 ABG pH ABG Total CO2 ABG O2 Saturation ABG Base Excess Jose Test ABG Potassium A-a O2 Difference Sodium 144 Chloride 118 H Glucose Lactate FiO2 Blood Gas Comments Crit Value Read Back Potassium 3.2 L Carbon Dioxide 17 L Anion Gap 12 BUN 22 H Creatinine 0.7 L Est GFR ( Amer) > 60 Est GFR (Non-Af Amer) > 60 Random Glucose 121 H Calcium 7.5 L Total Bilirubin 3.0 H AST 70 H ALT 36 Alkaline Phosphatase 125 Total Protein 6.1 L Albumin 2.4 L Globulin 3.7 Albumin/Globulin Ratio 0.6 L Arterial Blood Potassium Urine Color Urine Clarity Urine pH Ur Specific [place] Urine Protein Urine Glucose (UA) Urine Ketones Urine Blood Urine Nitrate Urine Bilirubin Urine Urobilinogen Ur Leukocyte Esterase Urine RBC (Auto) Urine Microscopic WBC Ur Squamous Epith Cells
[2017-12-26 10:31] LABS: INR 2.1 (0.9-1.2); PROTHROMBIN TIME 23.3 Seconds (9.8-13.1)
--- NOTE | 2017-12-26 10:35 | CT ---
PROCEDURE: CT HEAD WITHOUT CONTRAST. HISTORY: AMS COMPARISON: CT head performed approximately 12 hours prior. TECHNIQUE: Axial computed tomography images were obtained through the head/brain without intravenous contrast. Radiation dose: Total exam DLP = 1058.8 mGy-cm. This CT exam was performed using one or more of the following dose reduction techniques: Automated exposure control, adjustment of the mA and/or kV according to patient size, and/or use of iterative reconstruction technique. FINDINGS: HEMORRHAGE: Stable left subdural convexity extra-axial density collection with areas of acute blood products. Equivocal tiny right frontal extra-axial collection with possible blood products. BRAIN: No mass effect or edema. Atrophy. Chronic microvascular ischemic changes. VENTRICLES: Unremarkable. No hydrocephalus. CALVARIUM: Unremarkable. PARANASAL SINUSES: Bilateral maxillary sinus mucosal thickening. MASTOID AIR CELLS: Unremarkable as visualized. No inflammatory changes. OTHER FINDINGS: Left frontal scalp swelling. IMPRESSION: Stable left larger than right extra-axial collections. No significant interval change.
--- NOTE | 2017-12-26 11:01 | CP.PCM.PN ---
<Reyes Rangel - Last Filed: 12/26/17 11:02> Subjective - Date & Time of Evaluation Date of Evaluation: 12/26/17 Time of Evaluation: 09:30 - Subjective Subjective: PGY5 GI follow-up Pt seen and examined bedside transfered to the ICU x2 BM yesterday obtunded, responding to painful stimuli ROS: 12 point ROS conducted, neg other than above Objective - Vital Signs/Intake and Output Vital Signs (last 24 hours): Temp Pulse Resp BP Pulse Ox 98.7 F 82 18 118/60 99 12/26/17 08:00 12/26/17 10:00 12/26/17 10:00 12/26/17 10:00 12/26/17 10:00 Intake and Output: 12/26/17 12/26/17 06:59 18:59 Intake Total 400 550 Output Total 450 Balance -50 550 - Medications Medications: Current Medications Acetaminophen (Tylenol 650mg/20.3ml Solution Ud) 650 mg NG Q6 PRN PRN Reason: Temperature Last Admin: 12/25/17 21:57 Dose: 650 mg Folic Acid (Folic Acid) 1 mg PO DAILY [facility] Last Admin: 12/26/17 09:26 Dose: Not Given Vancomycin HCl 1 gm/ Sodium (Chloride) 250 mls @ 166.667 mls/hr IVPB Q12 JANNIE PRN Reason: Protocol Last Admin: 12/26/17 08:58 Dose: 166.667 mls/hr Piperacillin Sod/Tazobactam (Sod 4.5 gm/ Sodium Chloride) 100 mls @ 100 mls/hr IVPB Q8 JANNIE PRN Reason: Protocol Last Admin: 12/26/17 08:51 Dose: 100 mls/hr Levetiracetam (Keppra) 500 mg PO BID [facility] Last Admin: 12/26/17 08:55 Dose: 500 mg Lidocaine (Lidoderm) 1 ea TD DAILY PRN PRN Reason: Pain, moderate (4-7) Last Admin: 12/24/17 10:01 Dose: 1 ea Lorazepam (Ativan) 1 mg PO Q6 PRN PRN Reason: Agitation Ondansetron HCl (Zofran Inj) 4 mg IVP Q6 PRN PRN Reason: Nausea/Vomiting Pantoprazole Sodium (Protonix Ec Tab) 40 mg PO BID [facility] Last Admin: 12/26/17 08:55 Dose: 40 mg Thiamine HCl (Vitamin B1 Tab) 100 mg PO DAILY [facility] Last Admin: 12/26/17 09:27 Dose: Not Given Tobramycin Sulfate (Tobrex 0.3% Ophth Soln) 2 drop OU TID [facility] Last Admin: 12/26/17 09:38 Dose: 2 drop - Labs Labs: 12/26/17 04:40 12/26/17 04:40 PT 23.3 Seconds (9.8-13.1) H 12/26/17 09:44 INR 2.1 (0.9-1.2) H 12/26/17 09:44 - Constitutional Appears: Chronically Ill - Head Exam Head Exam: ATRAUMATIC, NORMOCEPHALIC - Eye Exam Eye Exam: Normal appearance. absent: Scleral icterus - ENT Exam ENT Exam: Mucous Membranes Moist, Normal Exam - Neck Exam Neck Exam: Normal Inspection - Respiratory Exam Respiratory Exam: Clear to Ausculation Bilateral, NORMAL BREATHING PATTERN. absent: Rales, Rhonchi, Wheezes, Respiratory Distress - Cardiovascular Exam Cardiovascular Exam: REGULAR RHYTHM, +S1, +S2 - GI/Abdominal Exam GI & Abdominal Exam: Soft, Normal Bowel Sounds. absent: Distended, Guarding, Rigid, Tenderness, Organomegaly - Extremities Exam Extremities Exam: absent: Joint Swelling, Pedal Edema - Neurological Exam Neurological Exam: Altered - Psychiatric Exam Psychiatric exam: Normal Affect, Normal Mood - Skin Skin Exam: Dry, Intact, Normal Color, Warm Assessment and Plan - Assessment and Plan (Free Text) Assessment: Patient is a 52yo male with PMHx significant for decompensated EtOH cirrhosis s/ p TIPS (2014), severe esophagitis and recently noted esophageal ulcer (September), EtOH withdrawal seizures who presented to the ED with complaint of hematemesis and hematochezia Ascending/cecal colitis Bacteremia Hematemesis/hematochezia-resolved HE grade 3 Anemia likely 2/2 above; r/o PUD, malignancy, varicies, esophageal ulcer Hx Decompensated EtOH cirrhosis s/p TIPS, MELD 18 on admission, DF:45 Hx Esophageal ulcer clean based Suspected gastroparesis EtOH abuse/intoxication Hx of large internal/external hemorrhoids Plan: -Continue supportive care -No active GI bleeding; no further hematemesis or melena since admission -transfuse to keep hgb > 7 -Monitor H/H -Remains hemodynamically stable -hold diet until more alert, aspiration risk -though DF>25, will not start steroids due to high probab of starting to consume ETOH after discharge -Lactulose PO, hrly until 2 BM -continue zosyn and Vancomycin as per ID D/W Dr. Bradley <Gage Bradley - Last Filed: 12/26/17 13:48> Objective - Vital Signs/Intake and Output Vital Signs (last 24 hours): Temp Pulse Resp BP Pulse Ox 98.9 F 78 15 92/53 L 98 12/26/17 12:00 12/26/17 12:00 12/26/17 12:00 12/26/17 12:00 12/26/17 12:00 Intake and Output: 12/26/17 12/26/17 06:59 18:59 Intake Total 400 550 Output Total 450 Balance -50 550 - Medications Medications: Current Medications Acetaminophen (Tylenol 650mg/20.3ml Solution Ud) 650 mg NG Q6 PRN PRN Reason: Temperature Last Admin: 12/25/17 21:57 Dose: 650 mg Folic Acid (Folic Acid) 1 mg PO DAILY [facility] Last Admin: 12/26/17 09:26 Dose: Not Given Vancomycin HCl 1 gm/ Sodium (Chloride) 250 mls @ 166.667 mls/hr IVPB Q12 JANNIE PRN Reason: Protocol Last Admin: 12/26/17 08:58 Dose: 166.667 mls/hr Piperacillin Sod/Tazobactam (Sod 4.5 gm/ Sodium Chloride) 100 mls @ 100 mls/hr IVPB Q8 JANNIE PRN Reason: Protocol Last Admin: 12/26/17 08:51 Dose: 100 mls/hr Sodium Chloride (Sodium Chloride 0.9%) 1,000 mls @ 100 mls/hr IV .Q10H [facility] Stop: 12/27/17 13:15 Last Admin: 12/26/17 13:19 Dose: 100 mls/hr Lactulose (Enulose) 20 gm PO TID [facility] Last Admin: 12/26/17 12:00 Dose: 20 gm Levetiracetam (Keppra) 500 mg PO BID [facility] Last Admin: 12/26/17 08:55 Dose: 500 mg Lidocaine (Lidoderm) 1 ea TD DAILY PRN PRN Reason: Pain, moderate (4-7) Last Admin: 12/24/17 10:01 Dose: 1 ea Lorazepam (Ativan) 1 mg PO Q6 PRN PRN Reason: Agitation Ondansetron HCl (Zofran Inj) 4 mg IVP Q6 PRN PRN Reason: Nausea/Vomiting Pantoprazole Sodium (Protonix Ec Tab) 40 mg PO BID [facility] Last Admin: 12/26/17 08:55 Dose: 40 mg Thiamine HCl (Vitamin B1 Tab) 100 mg PO DAILY [facility] Last Admin: 12/26/17 09:27 Dose: Not Given Tobramycin Sulfate (Tobrex 0.3% Ophth Soln) 2 drop OU TID [facility] Last Admin: 12/26/17 13:22 Dose: 2 drop - Labs Labs: 12/26/17 04:40 12/26/17 04:40 PT 23.3 Seconds (9.8-13.1) H 12/26/17 09:44 INR 2.1 (0.9-1.2) H 12/26/17 09:44 Attending/Attestation - Attestation I have personally seen and examined this patient.: Yes I have fully participated in the care of the patient.: Yes I have reviewed all pertinent clinical information, including history, physical exam and plan: Yes Notes (Text): 12/26/17 13:47 This is a 52 yo male with PMHx significant for decompensated EtOH cirrhosis s/p TIPS (2014), severe esophagitis and recently noted esophageal ulcer (October 15, 2017), EtOH withdrawal seizures who presented to the ED with complaint of hematemesis and hematochezia now resolved. GI reconsulted for grade 3 HE. Blood cultures are growing gram positive cocci. CTAP shows cecal colitis. Agree with antibiotics. HE worsened due to infection. Lactulose as tolerated. NPO due to AMS. Consider ECHO and TIPS infection if no other bacteremia source found. Aspiration precautions. Lactulose enemas.
--- NOTE | 2017-12-26 12:51 | CP.CCUPN ---
CCU Subjective - Physician Review Events Since Last Encounter (Free Text): 12/26/17 12:48 Remains obtunded , had 2 BM on lactulose, was evaluated by neurology,has small chronic SDH, not responsible for AMS, which s due to hepatic encephalopathy. CCU Objective - Vital Signs / Intake & Output Vital Signs (Last 4 hours): Vital Signs Temp Pulse Resp BP Pulse Ox 12/26/17 12:00 98.9 F 78 15 92/53 L 98 12/26/17 10:00 82 18 118/60 99 Intake and Output (Last 8hrs): Intake & Output 12/25/17 12/26/17 12/26/17 22:59 06:59 14:59 Intake Total 950 400 550 Output Total 350 450 Balance 600 -50 550 Intake: IV 600 400 200 Intake, Piggyback 350 350 Output: Urine 350 450 Urethral (Ty) 350 450 Other: # Bowel Movements 0 3 - Physical Exam Narrative Physical Exam (Free Text): 12/26/17 12:51 P/E Neck: No JVD Lungs: no ronchi/crackles abdomens: soft, Ext: +1 edema Heart: No gallop - Medications Active Medications: Active Medications Generic Name Dose Route Start Last Admin Trade Name Freq PRN Reason Stop Dose Admin Acetaminophen 650 mg 12/25/17 14:09 12/25/17 21:57 Tylenol 650mg/20.3ml Solution Ud NG 650 mg Q6 PRN Administration Temperature Folic Acid 1 mg 12/22/17 09:00 12/26/17 09:26 Folic Acid PO Not Given DAILY JANNIE Vancomycin HCl 1 gm/ Sodium 250 mls @ 166.667 mls/hr 12/25/17 10:45 12/26/17 08:58 Chloride IVPB 166.667 mls/hr Q12 JANNIE Administration Protocol Piperacillin Sod/Tazobactam 100 mls @ 100 mls/hr 12/25/17 17:00 12/26/17 08: 51 Sod 4.5 gm/ Sodium Chloride IVPB 100 mls/hr Q8 JANNIE Administration Protocol Lactulose 20 gm 12/26/17 13:00 Enulose PO TID JANNIE Levetiracetam 500 mg 12/21/17 17:00 12/26/17 08:55 Keppra PO 500 mg BID JANNIE Administration Lidocaine 1 ea 12/21/17 16:06 12/24/17 10:01 Lidoderm TD 1 ea DAILY PRN Administration Pain, moderate (4-7) Lorazepam 1 mg 12/24/17 18:02 Ativan PO Q6 PRN Agitation Ondansetron HCl 4 mg 12/21/17 14:32 Zofran Inj IVP Q6 PRN Nausea/Vomiting Pantoprazole Sodium 40 mg 12/22/17 17:00 12/26/17 08:55 Protonix Ec Tab PO 40 mg BID JANNIE Administration Thiamine HCl 100 mg 12/22/17 09:00 12/26/17 09:27 Vitamin B1 Tab PO Not Given DAILY JANNIE Tobramycin Sulfate 2 drop 12/24/17 13:00 12/26/17 09:38 Tobrex 0.3% Ophth Soln OU 2 drop TID JANNIE Administration - Patient Studies Lab Studies: Microbiology Studies 12/25/17 04:04 Urine Culture - Final Urine,Clean Catch 50-100,000 CFU/ML. MULTIPLE SPECIES. SUGGEST REPEAT SPECIMEN. 12/24/17 18:00 Blood Culture - Preliminary Blood Gram Positive Cocci Gram Stain - Final 12/25/17 17:48 Urine Culture - Final Urine,Ty No Growth (<1,000 CFU/ML) 12/24/17 17:53 S.aureus & Coag-Neg Staph PNA FISH - Final Blood Blood Culture - Preliminary Gram Positive Cocci Gram Stain - Final Lab Studies 12/26/17 12/26/17 12/26/17 Range/Units 09:44 04:40 04:40 WBC 3.8 L (4.8-10.8) K/uL RBC 2.65 L (4.40-5.90) Mil/uL Hgb 8.0 L (12.0-18.0) g/dL Hct 23.9 L (35.0-51.0) % MCV 90.2 D (80.0-94.0) fl MCH 30.1 (27.0-31.0) pg MCHC 33.3 (33.0-37.0) g/dL RDW 19.1 H (11.5-14.5) % Plt Count 63 L (130-400) K/uL PT 23.3 H (9.8-13.1) Seconds INR 2.1 H (0.9-1.2) pCO2 (35-45) mm/Hg pO2 (80-100) mm/Hg HCO3 (21-28) mmol/L ABG pH (7.35-7.45) ABG Total CO2 (22-28) mmol/L ABG O2 Saturation (95-98) % ABG Base Excess (-2.0-3.0) mmol/L Jose Test ABG Potassium (3.6-5.2) mmol/L A-a O2 Difference mm/Hg Sodium 144 (132-148) mmol/L Chloride 118 H (98-107) mmol/L Glucose (75-110) mg/dL Lactate (0.7-2.1) mmol/L FiO2 % Blood Gas Comments Crit Value Read Back Potassium 3.2 L (3.6-5.0) MMOL/L Carbon Dioxide 17 L (22-30) mmol/L Anion Gap 12 (10-20) BUN 22 H (9-20) mg/dl Creatinine 0.7 L (0.8-1.5) mg/dl Est GFR ( Amer) > 60 Est GFR (Non-Af Amer) > 60 Random Glucose 121 H (75-110) mg/dL Calcium 7.5 L (8.4-10.2) mg/dL Total Bilirubin 3.0 H (0.2-1.3) mg/dl AST 70 H (17-59) U/L ALT 36 (21-72) U/L Alkaline Phosphatase 125 (38-126) U/L Total Protein 6.1 L (6.3-8.2) G/DL Albumin 2.4 L (3.5-5.0) g/dL Globulin 3.7 (2.2-3.9) gm/dL Albumin/Globulin Ratio 0.6 L (1.0-2.1) Arterial Blood Potassium (3.6-5.2) mmol/L Urine Color (YELLOW) Urine Clarity (Clear) Urine pH (5.0-8.0) Ur Specific Clare (1.003-1.030) Urine Protein (NEGATIVE) mg/dL Urine Glucose (UA) (Normal) mg/dL Urine Ketones (NEGATIVE) mg/dL Urine Blood (NEGATIVE) Urine Nitrate (NEGATIVE) Urine Bilirubin (NEGATIVE) Urine Urobilinogen (0.2-1.0) mg/dL Ur Leukocyte Esterase (Negative) Florence/uL Urine RBC (Auto) (0-3) /hpf Urine Microscopic WBC (0-5) /hpf Ur Squamous Epith Cells (0-5) /hpf 12/25/17 12/25/17 Range/Units 17:46 14:17 WBC (4.8-10.8) K/uL RBC (4.40-5.90) Mil/uL Hgb (12.0-18.0) g/dL Hct (35.0-51.0) % MCV (80.0-94.0) fl MCH (27.0-31.0) pg MCHC (33.0-37.0) g/dL RDW (11.5-14.5) % Plt Count (130-400) K/uL PT (9.8-13.1) Seconds INR (0.9-1.2) pCO2 23 L (35-45) mm/Hg pO2 72 L (80-100) mm/Hg HCO3 23.6 (21-28) mmol/L ABG pH 7.53 H (7.35-7.45) ABG Total CO2 19.9 L (22-28) mmol/L ABG O2 Saturation 99.3 H (95-98) % ABG Base Excess -1.7 (-2.0-3.0) mmol/L Jose Test Yes ABG Potassium 3.4 L (3.6-5.2) mmol/L A-a O2 Difference 49.0 mm/Hg Sodium 136.0 (132-148) mmol/L Chloride 113.0 H (98-107) mmol/L Glucose 124 H (75-110) mg/dL Lactate 1.0 (0.7-2.1) mmol/L FiO2 21.0 % Blood Gas Comments Room air Crit Value Read Back N Potassium (3.6-5.0) MMOL/L Carbon Dioxide (22-30) mmol/L Anion Gap (10-20) BUN (9-20) mg/dl Creatinine (0.8-1.5) mg/dl Est GFR ( Amer) Est GFR (Non-Af Amer) Random Glucose (75-110) mg/dL Calcium (8.4-10.2) mg/dL Total Bilirubin (0.2-1.3) mg/dl AST (17-59) U/L ALT (21-72) U/L Alkaline Phosphatase (38-126) U/L Total Protein (6.3-8.2) G/DL Albumin (3.5-5.0) g/dL Globulin (2.2-3.9) gm/dL Albumin/Globulin Ratio (1.0-2.1) Arterial Blood Potassium 3.4 L (3.6-5.2) mmol/L Urine Color [place] (YELLOW) Urine Clarity Slighty-cloudy (Clear) Urine pH 6.0 (5.0-8.0) Ur Specific Clare 1.024 (1.003-1.030) Urine Protein Negative (NEGATIVE) mg/dL Urine Glucose (UA) Neg (Normal) mg/dL Urine Ketones Negative (NEGATIVE) mg/dL Urine Blood Small (NEGATIVE) Urine Nitrate Negative (NEGATIVE) Urine Bilirubin Negative (NEGATIVE) Urine Urobilinogen 4.0 (0.2-1.0) mg/dL Ur Leukocyte Esterase Neg (Negative) Florence/uL Urine RBC (Auto) 6 H (0-3) /hpf Urine Microscopic WBC 4 (0-5) /hpf Ur Squamous Epith Cells < 1 (0-5) /hpf Laboratory Results - last 24 hr 12/25/17 12/25/17 12/26/17 14:17 17:46 04:40 WBC 3.8 L RBC 2.65 L Hgb 8.0 L Hct 23.9 L MCV 90.2 D MCH 30.1 MCHC 33.3 RDW 19.1 H Plt Count 63 L PT INR pCO2 23 L pO2 72 L HCO3 23.6 ABG pH 7.53 H ABG Total CO2 19.9 L ABG O2 Saturation 99.3 H ABG Base Excess -1.7 Jose Test Yes ABG Potassium 3.4 L A-a O2 Difference 49.0 Sodium 136.0 Chloride 113.0 H Glucose 124 H Lactate 1.0 FiO2 21.0 Blood Gas Comments Room air Crit Value Read Back N Potassium Carbon Dioxide Anion Gap BUN Creatinine Est GFR ( Amer) Est GFR (Non-Af Amer) Random Glucose Calcium Total Bilirubin AST ALT Alkaline Phosphatase Total Protein Albumin Globulin Albumin/Globulin Ratio Arterial Blood Potassium 3.4 L Urine Color Yuni Urine Clarity Slighty-cloudy Urine pH 6.0 Ur Specific Clare 1.024 Urine Protein Negative Urine Glucose (UA) Neg Urine Ketones Negative Urine Blood Small Urine Nitrate Negative Urine Bilirubin Negative Urine Urobilinogen 4.0 Ur Leukocyte Esterase Neg Urine RBC (Auto) 6 H Urine Microscopic WBC 4 Ur Squamous Epith Cells < 1 12/26/17 12/26/17 04:40 09:44 WBC RBC Hgb Hct MCV MCH MCHC RDW Plt Count PT 23.3 H INR 2.1 H pCO2 pO2 HCO3 ABG pH ABG Total CO2 ABG O2 Saturation ABG Base Excess Jose Test ABG Potassium A-a O2 Difference Sodium 144 Chloride 118 H Glucose Lactate FiO2 Blood Gas Comments Crit Value Read Back Potassium 3.2 L Carbon Dioxide 17 L Anion Gap 12 BUN 22 H Creatinine 0.7 L Est GFR ( Amer) > 60 Est GFR (Non-Af Amer) > 60 Random Glucose 121 H Calcium 7.5 L Total Bilirubin 3.0 H AST 70 H ALT 36 Alkaline Phosphatase 125 Total Protein 6.1 L Albumin 2.4 L Globulin 3.7 Albumin/Globulin Ratio 0.6 L Arterial Blood Potassium Urine Color Urine Clarity Urine pH Ur Specific Clare Urine Protein Urine Glucose (UA) Urine Ketones Urine Blood Urine Nitrate Urine Bilirubin Urine Urobilinogen Ur Leukocyte Esterase Urine RBC (Auto) Urine Microscopic WBC Ur Squamous Epith Cells Critical Care Progress Note - Nutrition Nutrition: Nutrition Category Date Time Status Altered GI/Hepatic Diet [DIET] Diets 12/22/17 Dinner Active Assessment/Plan - Assessment and Plan (Free Text) Assessment: Assessment: 1-AMS: hepatic encephalopathy with high ammonia level Was on hourly lactulose, had BM, now change do TID GI following No clinical improvement, yet 2) Hematemesis: -monitor H&H closely -no signs of active bleeding now -FOBT positive -10/15/17 Upper GI endoscopy showed 7 mm superficial esophageal ulcer -as per GI fellow. EGD not indicated at this time as per GI -Colonoscopy (06/2017) Poor prep, internal/external hemorrhoids -EGD (04/2017) - LA Grade C esophagitis with visible vessel at EGJ s/p clip and injection of epi, portal hypertensive gastropathy --protonix 40 mg 3) Pancytopenia - Secondary to cirrhosis : stable -Continue to monitor 4) Seizures: -cont home meds; Keppra 500mg BID 5) Cirrhosis: -secondary to alcohol abuse -s/p TIPs -AST>ALT -transaminitis 6-Fever and Bacteremia On zosyn and vancomycin, ID following 7-Hypokalemia: Due to lactoluse induced diarrhea, will replace. 6) DVT prophylaxis: -SCDs
[2017-12-26] MEDS: Sodium Chloride 0.9% 1,000 ML IV SCH (13:19)
[2017-12-26] MEDS ORDERED: Lactated Ringer's 1,000 ML IV SCH (18:15)
[2017-12-27] MEDS: Piperacillin/Tazobact 4.5 GM in Sodium Chloride 0.9% 100 ML IVPB SCH ×3 (00:24→17:10)
[2017-12-27 05:29] LABS: HEMOGLOBIN 8.2 g/dL (12.0-18.0); MEAN CELL VOLUME 91.8 fl (80.0-94.0); MEAN CORPUSCULAR HGB CONC 32.7 g/dL (33.0-37.0); RBC 2.73 Mil/uL (4.40-5.90); RED CELL DISTRIBUTION WIDTH 19.5 % (11.5-14.5); WHITE BLOOD COUNT 2.9 K/uL (4.8-10.8)
[2017-12-27 06:01] LABS: ALB/GLOB RATIO 0.6 (1.0-2.1); ALBUMIN 2.4 g/dL (3.5-5.0); ALT/SGPT 35 U/L (21-72); AST/SGOT 78 U/L (17-59); BLOOD UREA NITROGEN 15 mg/dl (9-20); CALCIUM 7.3 mg/dL (8.4-10.2); GFR AFRICAN-AMERICAN > 60; GFR NON-AFRICAN AMERICAN > 60
[2017-12-27] MEDS: Sodium Chloride 0.9% 1,000 ML IV SCH (07:00)
[2017-12-27] MEDS ORDERED: Lactulose 10 gm/15 ml (Rectal Use) PR ONE (08:16)
--- NOTE | 2017-12-27 08:19 | CP.PCM.PN ---
<Reyes Rangel - Last Filed: 12/27/17 17:07> Subjective - Date & Time of Evaluation Date of Evaluation: 12/27/17 Time of Evaluation: 07:00 - Subjective Subjective: PGY5 GI Follow-up Pt seen and examined bedside More alert, orieted x3 denies any abd pain pulled NG overnight ROS: 12 point ROS conducted, neg other than above Objective - Vital Signs/Intake and Output Vital Signs (last 24 hours): Temp Pulse Resp BP Pulse Ox 99.1 F 72 14 95/49 L 93 L 12/27/17 04:00 12/27/17 06:00 12/27/17 06:00 12/27/17 06:00 12/27/17 06:00 Intake and Output: 12/27/17 12/27/17 06:59 18:59 Intake Total 1350 Balance 1350 - Medications Medications: Current Medications Acetaminophen (Tylenol 650mg/20.3ml Solution Ud) 650 mg NG Q6 PRN PRN Reason: Temperature Last Admin: 12/25/17 21:57 Dose: 650 mg Folic Acid (Folic Acid) 1 mg PO DAILY [facility] Last Admin: 12/26/17 09:26 Dose: Not Given Vancomycin HCl 1 gm/ Sodium (Chloride) 250 mls @ 166.667 mls/hr IVPB Q12 JANNIE PRN Reason: Protocol Last Admin: 12/26/17 21:00 Dose: 166.667 mls/hr Piperacillin Sod/Tazobactam (Sod 4.5 gm/ Sodium Chloride) 100 mls @ 100 mls/hr IVPB Q8 JANNIE PRN Reason: Protocol Last Admin: 12/27/17 00:24 Dose: 100 mls/hr Sodium Chloride (Sodium Chloride 0.9%) 1,000 mls @ 100 mls/hr IV .Q10H [facility] Stop: 12/27/17 13:15 Last Admin: 12/26/17 13:19 Dose: 100 mls/hr Lactulose (Enulose) 20 gm PO TID [facility] Last Admin: 12/26/17 17:30 Dose: 20 gm Lactulose (Generlac) [address] ONCE ONE Stop: 12/27/17 08:17 Levetiracetam (Keppra) 500 mg PO BID [facility] Last Admin: 12/26/17 17:30 Dose: 500 mg Lidocaine (Lidoderm) 1 ea TD DAILY PRN PRN Reason: Pain, moderate (4-7) Last Admin: 12/24/17 10:01 Dose: 1 ea Ondansetron HCl (Zofran Inj) 4 mg IVP Q6 PRN PRN Reason: Nausea/Vomiting Pantoprazole Sodium (Protonix Ec Tab) 40 mg PO BID [facility] Last Admin: 12/26/17 17:30 Dose: 40 mg Thiamine HCl (Vitamin B1 Tab) 100 mg PO DAILY [facility] Last Admin: 12/26/17 09:27 Dose: Not Given Tobramycin Sulfate (Tobrex 0.3% Ophth Soln) 2 drop OU TID [facility] Last Admin: 12/26/17 17:31 Dose: 2 drop - Labs Labs: 12/27/17 05:12 12/27/17 05:12 PT 23.3 Seconds (9.8-13.1) H 12/26/17 09:44 INR 2.1 (0.9-1.2) H 12/26/17 09:44 - Constitutional Appears: Well, No Acute Distress, Confused, Chronically Ill - Head Exam Head Exam: ATRAUMATIC, NORMOCEPHALIC - Eye Exam Eye Exam: Normal appearance. absent: Scleral icterus - Neck Exam Neck Exam: Normal Inspection - Respiratory Exam Respiratory Exam: Clear to Ausculation Bilateral, NORMAL BREATHING PATTERN. absent: Rales, Rhonchi, Wheezes, Respiratory Distress - GI/Abdominal Exam GI & Abdominal Exam: Soft, Normal Bowel Sounds. absent: Firm, Guarding, Rigid, Tenderness, Mass, Organomegaly - Extremities Exam Extremities Exam: absent: Joint Swelling, Pedal Edema - Neurological Exam Neurological Exam: Altered, Awake, Oriented x3 - Skin Skin Exam: Dry, Intact, Normal Color, Warm Assessment and Plan - Assessment and Plan (Free Text) Assessment: Patient is a 52yo male with PMHx significant for decompensated EtOH cirrhosis s/ p TIPS (2014), severe esophagitis and recently noted esophageal ulcer (September), EtOH withdrawal seizures who presented to the ED with complaint of hematemesis and hematochezia Ascending/cecal colitis Bacteremia Hematemesis/hematochezia-resolved HE grade 2 (improving) Anemia likely 2/2 above; r/o PUD, malignancy, varicies, esophageal ulcer Hx Decompensated EtOH cirrhosis s/p TIPS, MELD 18 on admission, DF:45 Hx Esophageal ulcer clean based Suspected gastroparesis EtOH abuse/intoxication Hx of large internal/external hemorrhoids Plan: -Continue supportive care -No active GI bleeding; no further hematemesis or melena since admission -transfuse to keep hgb > 7 -Monitor H/H -Remains hemodynamically stable -hold diet until more alert, aspiration risk -though DF>25, will not start steroids due to high probab of starting to consume ETOH after discharge -Lactulose CT until speech eval, then PO until 2 BM -continue zosyn and Vancomycin as per ID -speech eval, if okay, then can start low sodium diet D/W Dr. Bradley <Gage Bradley - Last Filed: 12/27/17 18:43> Objective - Vital Signs/Intake and Output Vital Signs (last 24 hours): Temp Pulse Resp BP Pulse Ox 98 F 81 20 118/54 L 99 12/27/17 17:42 12/27/17 17:42 12/27/17 17:42 12/27/17 17:42 12/27/17 17:42 Intake and Output: 12/27/17 12/27/17 06:59 18:59 Intake Total 1350 1500 Output Total 450 Balance 1350 1050 - Medications Medications: Current Medications Acetaminophen (Tylenol 650mg/20.3ml Solution Ud) 650 mg NG Q6 PRN PRN Reason: Temperature Last Admin: 12/25/17 21:57 Dose: 650 mg Folic Acid (Folic Acid) 1 mg PO DAILY [facility] Last Admin: 12/27/17 09:45 Dose: 1 mg Vancomycin HCl 1 gm/ Sodium (Chloride) 250 mls @ 166.667 mls/hr IVPB Q12 JANNIE PRN Reason: Protocol Last Admin: 12/27/17 09:00 Dose: 166.667 mls/hr Piperacillin Sod/Tazobactam (Sod 4.5 gm/ Sodium Chloride) 100 mls @ 100 mls/hr IVPB Q8 JANNIE PRN Reason: Protocol Last Admin: 12/27/17 17:10 Dose: 100 mls/hr Lactulose (Enulose) 20 gm PO TID [facility] Last Admin: 12/27/17 17:08 Dose: 20 gm Levetiracetam (Keppra) 500 mg PO BID [facility] Last Admin: 12/27/17 17:09 Dose: 500 mg Lidocaine (Lidoderm) 1 ea TD DAILY PRN PRN Reason: Pain, moderate (4-7) Last Admin: 12/24/17 10:01 Dose: 1 ea Ondansetron HCl (Zofran Inj) 4 mg IVP Q6 PRN PRN Reason: Nausea/Vomiting Pantoprazole Sodium (Protonix Ec Tab) 40 mg PO DAILY JANNIE Thiamine HCl (Vitamin B1 Tab) 100 mg PO DAILY [facility]ANN[facility] Last Admin: 12/27/17 09:45 Dose: 100 mg Tobramycin Sulfate (Tobrex 0.3% Ophth Soln) 2 drop OU TID JANNIE Last Admin: 12/27/17 17:09 Dose: 2 drop - Labs Labs: 12/27/17 05:12 12/27/17 05:12 PT 23.3 Seconds (9.8-13.1) H 12/26/17 09:44 INR 2.1 (0.9-1.2) H 12/26/17 09:44 Attending/Attestation - Attestation I have personally seen and examined this patient.: Yes I have fully participated in the care of the patient.: Yes I have reviewed all pertinent clinical information, including history, physical exam and plan: Yes Notes (Text): 12/27/17 18:42 This is a 52 yo male with PMHx significant for decompensated EtOH cirrhosis s/p TIPS (2014), severe esophagitis and recently noted esophageal ulcer (October 15, 2017), EtOH withdrawal seizures who presented to the ED with complaint of hematemesis and hematochezia now resolved. GI reconsulted for grade 3 Hepatic encephalopathy which is resolving. Patient more awake today and oriented x 2. . Blood cultures are growing gram positive cocci. CTAP shows cecal colitis. Agree with antibiotics. HE worsened due to infection. Lactulose as tolerated. Diet low salt as tolerated. Consider ECHO and TIPS infection if no other bacteremia source found. Aspiration precautions. Lactulose enemas.
[2017-12-27] MEDS: Tobramycin 0.3% OPHT SOLN OU SCH ×3 (08:52→17:09)
[2017-12-27] MEDS ORDERED: levETIRAcetam 500 MG in Sodium Chloride 0.9% 100 ML IVPB SCH (09:15)
[2017-12-27] MEDS: Pantoprazole 40 mg EC Tab PO SCH (09:29)
--- NOTE | 2017-12-27 09:58 | CP.PCM.PN ---
Subjective - Date & Time of Evaluation Date of Evaluation: 12/27/17 Time of Evaluation: 09:53 - Subjective Subjective: Mr. Sepulveda was seen and examined at the bedside in ICU. He is alert, oriented in all spheres. He denies any headache, lightheadedness, dizziness, blurred vision, diplopia, demanded food DINORA. Staff did a bedside swallowing eval, however, he has a coughing episode after swallowing thicken liquid even with head of bed elevated. He is able to follow simple commands. According to staff, the patient had episode of restlessness and agiatation that he pulled his NGT. There was no untoward events overnight. Objective - Vital Signs/Intake and Output Vital Signs (last 24 hours): Temp Pulse Resp BP Pulse Ox 98.6 F 75 13 110/67 97 12/27/17 08:00 12/27/17 08:00 12/27/17 08:00 12/27/17 08:00 12/27/17 08:00 Intake and Output: 12/27/17 12/27/17 06:59 18:59 Intake Total 1350 Balance 1350 - Medications Medications: Current Medications Acetaminophen (Tylenol 650mg/20.3ml Solution Ud) 650 mg NG Q6 PRN PRN Reason: Temperature Last Admin: 12/25/17 21:57 Dose: 650 mg Folic Acid (Folic Acid) 1 mg PO DAILY [facility] Last Admin: 12/27/17 09:45 Dose: 1 mg Vancomycin HCl 1 gm/ Sodium (Chloride) 250 mls @ 166.667 mls/hr IVPB Q12 JANNIE PRN Reason: Protocol Last Admin: 12/27/17 09:00 Dose: 166.667 mls/hr Piperacillin Sod/Tazobactam (Sod 4.5 gm/ Sodium Chloride) 100 mls @ 100 mls/hr IVPB Q8 JANNIE PRN Reason: Protocol Last Admin: 12/27/17 08:59 Dose: 100 mls/hr Sodium Chloride (Sodium Chloride 0.9%) 1,000 mls @ 100 mls/hr IV .Q10H [facility] Stop: 12/27/17 13:15 Last Admin: 12/26/17 13:19 Dose: 100 mls/hr Levetiracetam 500 mg/ Sodium (Chloride) 105 mls @ 210 mls/hr IVPB Q12 [facility] Last Admin: 12/27/17 09:32 Dose: 210 mls/hr Lactulose (Enulose) 20 gm PO TID [facility] Last Admin: 12/27/17 09:43 Dose: 20 gm Lidocaine (Lidoderm) 1 ea TD DAILY PRN PRN Reason: Pain, moderate (4-7) Last Admin: 12/24/17 10:01 Dose: 1 ea Ondansetron HCl (Zofran Inj) 4 mg IVP Q6 PRN PRN Reason: Nausea/Vomiting Pantoprazole Sodium (Protonix Inj) 40 mg IVP DAILY [facility] Thiamine HCl (Vitamin B1 Tab) 100 mg PO DAILY [facility] Last Admin: 12/27/17 09:45 Dose: 100 mg Tobramycin Sulfate (Tobrex 0.3% Ophth Soln) 2 drop OU TID [facility] Last Admin: 12/27/17 08:52 Dose: 2 drop - Labs Labs: 12/27/17 05:12 12/27/17 05:12 PT 23.3 Seconds (9.8-13.1) H 12/26/17 09:44 INR 2.1 (0.9-1.2) H 12/26/17 09:44 - Constitutional Appears: No Acute Distress - Head Exam Head Exam: NORMAL INSPECTION - Eye Exam Pupil Exam: PERRL - Neurological Exam Neurological Exam: Alert, Awake, Oriented x3 Neuro motor strength exam: Left Upper Extremity: 4, Right Upper Extremity: 4, Left Lower Extremity: 4, Right Lower Extremity: 4 Additional comments: neurological improved from previous examination. Assessment and Plan (1) Subdural hematoma Assessment & Plan: Case discussed with Dr. Allison, continue current medical regimen. Pending repeat CT scan of the head, EEG. Recommend normothermic, blood pressure control, keep head of the head elevated at least 30 degrees. Status: Acute (2) Encephalopathy acute Assessment & Plan: Case discussed with Dr. Allison, continue current medical regimen including monitoring of ammonia level, treat any electrolyte abnormalities. Status: Acute
--- NOTE | 2017-12-27 10:34 | CON ---
DATE: 12/25/2017 HISTORY OF PRESENT ILLNESS: This is a 52-year-old male with a known heavy alcohol abuse history who apparently sustained some trauma, was brought to the [facility] ER. The patient was noted to be markedly obtunded. He was toxic with alcohol and extremely high ammonia level. Admitted to the ICU. PAST MEDICAL HISTORY: Most salient as above. Rest of his history reviewed in the EMR. PHYSICAL EXAMINATION: GENERAL: He is quite obtunded. He will moan and move all four extremities to vigorous chest rub. There was no localization. There was no command following. HEENT: Pupils are roughly 4 mm reactive. Face is symmetric. LABORATORY DATA: CT shows a relatively small left frontal chronic subdural hematoma with minimal mass effect. IMPRESSION AND PLAN: The etiology of the patient's not related to this subdural collection. My recommendation would be to repeat the CT scan in 24 hours. In the interim, keep the head elevation. Of course, he needs significant medical management. Wild Bailey MD
--- NOTE | 2017-12-27 10:47 | CP.PCM.PN ---
Subjective - Date & Time of Evaluation Date of Evaluation: 12/27/17 Time of Evaluation: 10:47 - Subjective Subjective: ID Note- Pt. seen and examined today in ICU. denies any fever or chills. pt. awake and alert and can answer questions. He states he is hungry. Objective - Vital Signs/Intake and Output Vital Signs (last 24 hours): Temp Pulse Resp BP Pulse Ox 98.6 F 75 13 110/67 97 12/27/17 08:00 12/27/17 08:00 12/27/17 08:00 12/27/17 08:00 12/27/17 08:00 Intake and Output: 12/27/17 12/27/17 06:59 18:59 Intake Total 1350 Balance 1350 - Medications Medications: Current Medications Acetaminophen (Tylenol 650mg/20.3ml Solution Ud) 650 mg NG Q6 PRN PRN Reason: Temperature Last Admin: 12/25/17 21:57 Dose: 650 mg Folic Acid (Folic Acid) 1 mg PO DAILY [facility] Last Admin: 12/27/17 09:45 Dose: 1 mg Vancomycin HCl 1 gm/ Sodium (Chloride) 250 mls @ 166.667 mls/hr IVPB Q12 JANNIE PRN Reason: Protocol Last Admin: 12/27/17 09:00 Dose: 166.667 mls/hr Piperacillin Sod/Tazobactam (Sod 4.5 gm/ Sodium Chloride) 100 mls @ 100 mls/hr IVPB Q8 JANNIE PRN Reason: Protocol Last Admin: 12/27/17 08:59 Dose: 100 mls/hr Sodium Chloride (Sodium Chloride 0.9%) 1,000 mls @ 100 mls/hr IV .Q10H [facility] Stop: 12/27/17 13:15 Last Admin: 12/27/17 07:00 Dose: 100 mls/hr Levetiracetam 500 mg/ Sodium (Chloride) 105 mls @ 210 mls/hr IVPB Q12 JANNIE Last Admin: 12/27/17 09:32 Dose: 210 mls/hr Lactulose (Enulose) 20 gm PO TID [facility] Last Admin: 12/27/17 09:43 Dose: 20 gm Lidocaine (Lidoderm) 1 ea TD DAILY PRN PRN Reason: Pain, moderate (4-7) Last Admin: 12/24/17 10:01 Dose: 1 ea Ondansetron HCl (Zofran Inj) 4 mg IVP Q6 PRN PRN Reason: Nausea/Vomiting Pantoprazole Sodium (Protonix Inj) 40 mg IVP DAILY [facility] Last Admin: 12/27/17 10:01 Dose: 40 mg Thiamine HCl (Vitamin B1 Tab) 100 mg PO DAILY [facility] Last Admin: 12/27/17 09:45 Dose: 100 mg Tobramycin Sulfate (Tobrex 0.3% Ophth Soln) 2 drop OU TID [facility] Last Admin: 12/27/17 08:52 Dose: 2 drop - Labs Labs: - Additional Findings Additional findings: - Constitutional Appears: Chronically Ill Additional comments: - Respiratory Exam Additional comments: no wheezing decrease breath sounds at right base - Cardiovascular Exam Cardiovascular Exam: Tachycardia, +S1, +S2 - GI/Abdominal Exam GI & Abdominal Exam: Soft Additional comments: bowel sounds heard ND NT - Extremities Exam Additional comments: no edema b/l LE - Neurological Exam Neurological exam: Awake and much more alert Laboratory Results - last 72 hr 12/24/17 12/24/17 12/24/17 17:53 17:53 18:00 WBC 7.8 D RBC 3.04 L Hgb 9.0 L Hct 26.9 L MCV 88.3 MCH 29.8 MCHC 33.7 RDW 17.8 H Plt Count 72 L D PT INR pCO2 pO2 HCO3 ABG pH ABG Total CO2 ABG O2 Saturation ABG Base Excess Jsoe Test ABG Potassium A-a O2 Difference Glucose Lactate FiO2 Blood Gas Comments Crit Value Read Back Sodium 138 Potassium 4.0 Chloride 109 H Carbon Dioxide 20 L Anion Gap 13 BUN 15 Creatinine 0.6 L Est GFR ( Amer) > 60 Est GFR (Non-Af Amer) > 60 Random Glucose 110 Calcium 7.9 L Phosphorus Magnesium Total Bilirubin 3.6 H AST 83 H ALT 43 Alkaline Phosphatase 147 H Ammonia 95 H* D Total Protein 6.7 Albumin 2.8 L D Globulin 3.9 Albumin/Globulin Ratio 0.7 L Arterial Blood Potassium Urine Color Urine Clarity Urine pH Ur Specific [place] Urine Protein Urine Glucose (UA) Urine Ketones Urine Blood Urine Nitrate Urine Bilirubin Urine Urobilinogen Ur Leukocyte Esterase Urine RBC (Auto) Urine Microscopic WBC Ur Squamous Epith Cells Urine Bacteria Hyaline Casts Vancomycin Trough 07/07/18 07/07/18 07/07/18 04:04 04:45 04:45 WBC 3.9 L RBC 2.71 L Hgb 8.2 L Hct 23.8 L MCV 88.1 MCH 30.5 MCHC 34.6 RDW 17.7 H Plt Count 60 L PT INR pCO2 pO2 HCO3 ABG pH ABG Total CO2 ABG O2 Saturation ABG Base Excess Jose Test ABG Potassium A-a O2 Difference Glucose Lactate FiO2 Blood Gas Comments Crit Value Read Back Sodium 140 Potassium 3.8 Chloride 113 H Carbon Dioxide 18 L Anion Gap 13 BUN 28 H Creatinine 0.7 L Est GFR ( Amer) > 60 Est GFR (Non-Af Amer) > 60 Random Glucose 110 Calcium 7.6 L Phosphorus Magnesium Total Bilirubin 3.9 H AST 66 H D ALT 40 Alkaline Phosphatase 126 Ammonia Total Protein 6.2 L Albumin 2.5 L Globulin 3.7 Albumin/Globulin Ratio 0.7 L Arterial Blood Potassium Urine Color [place] Urine Clarity Slighty-cloudy Urine pH 6.0 Ur Specific [place] 1.026 Urine Protein Negative Urine Glucose (UA) Neg Urine Ketones Negative Urine Blood Negative Urine Nitrate Negative Urine Bilirubin Negative Urine Urobilinogen 4.0 Ur Leukocyte Esterase Neg Urine RBC (Auto) 5 H Urine Microscopic WBC 2 Ur Squamous Epith Cells 1 Urine Bacteria Rare Hyaline Casts 0-2 Vancomycin Trough 12/25/17 12/25/17 12/25/17 05:00 14:17 17:46 WBC RBC Hgb Hct MCV MCH MCHC RDW Plt Count PT INR pCO2 23 L pO2 72 L HCO3 23.6 ABG pH 7.53 H ABG Total CO2 19.9 L ABG O2 Saturation 99.3 H ABG Base Excess -1.7 Jose Test Yes ABG Potassium 3.4 L A-a O2 Difference 49.0 Glucose 124 H Lactate 1.0 FiO2 21.0 Blood Gas Comments Room air Crit Value Read Back N Sodium 136.0 Potassium Chloride 113.0 H Carbon Dioxide Anion Gap BUN Creatinine Est GFR ( Amer) Est GFR (Non-Af Amer) Random Glucose Calcium Phosphorus Magnesium Total Bilirubin AST ALT Alkaline Phosphatase Ammonia 82 H Total Protein Albumin Globulin Albumin/Globulin Ratio Arterial Blood Potassium 3.4 L Urine Color [place] Urine Clarity Slighty-cloudy Urine pH 6.0 Ur Specific [place] 1.024 Urine Protein Negative Urine Glucose (UA) Neg Urine Ketones Negative Urine Blood Small Urine Nitrate Negative Urine Bilirubin Negative Urine Urobilinogen 4.0 Ur Leukocyte Esterase Neg Urine RBC (Auto) 6 H Urine Microscopic WBC 4 Ur Squamous Epith Cells < 1 Urine Bacteria Hyaline Casts Vancomycin Trough 12/26/17 12/26/17 12/26/17 04:40 04:40 09:44 WBC 3.8 L RBC 2.65 L Hgb 8.0 L Hct 23.9 L MCV 90.2 D MCH 30.1 MCHC 33.3 RDW 19.1 H Plt Count 63 L PT 23.3 H INR 2.1 H pCO2 pO2 HCO3 ABG pH ABG Total CO2 ABG O2 Saturation ABG Base Excess Jose Test ABG Potassium A-a O2 Difference Glucose Lactate FiO2 Blood Gas Comments Crit Value Read Back Sodium 144 Potassium 3.2 L Chloride 118 H Carbon Dioxide 17 L Anion Gap 12 BUN 22 H Creatinine 0.7 L Est GFR ( Amer) > 60 Est GFR (Non-Af Amer) > 60 Random Glucose 121 H Calcium 7.5 L Phosphorus Magnesium Total Bilirubin 3.0 H AST 70 H ALT 36 Alkaline Phosphatase 125 Ammonia Total Protein 6.1 L Albumin 2.4 L Globulin 3.7 Albumin/Globulin Ratio 0.6 L Arterial Blood Potassium Urine Color Urine Clarity Urine pH Ur Specific [place] Urine Protein Urine Glucose (UA) Urine Ketones Urine Blood Urine Nitrate Urine Bilirubin Urine Urobilinogen Ur Leukocyte Esterase Urine RBC (Auto) Urine Microscopic WBC Ur Squamous Epith Cells Urine Bacteria Hyaline Casts Vancomycin Trough 12/26/17 12/27/17 12/27/17 21:00 05:12 05:12 WBC 2.9 L RBC 2.73 L Hgb 8.2 L Hct 25.1 L MCV 91.8 MCH 30.0 MCHC 32.7 L RDW 19.5 H Plt Count 54 L PT INR pCO2 pO2 HCO3 ABG pH ABG Total CO2 ABG O2 Saturation ABG Base Excess Jose Test ABG Potassium A-a O2 Difference Glucose Lactate FiO2 Blood Gas Comments Crit Value Read Back Sodium 143 Potassium 3.5 L Chloride 117 H Carbon Dioxide 16 L Anion Gap 14 BUN 15 Creatinine 0.5 L Est GFR ( Amer) > 60 Est GFR (Non-Af Amer) > 60 Random Glucose 90 Calcium 7.3 L Phosphorus 3.0 Magnesium 1.6 Total Bilirubin 3.0 H AST 78 H ALT 35 Alkaline Phosphatase 127 H Ammonia Total Protein 6.3 Albumin 2.4 L Globulin 3.9 Albumin/Globulin Ratio 0.6 L Arterial Blood Potassium Urine Color Urine Clarity Urine pH Ur Specific [place] Urine Protein Urine Glucose (UA) Urine Ketones Urine Blood Urine Nitrate Urine Bilirubin Urine Urobilinogen Ur Leukocyte Esterase Urine RBC (Auto) Urine Microscopic WBC Ur Squamous Epith Cells Urine Bacteria Hyaline Casts Vancomycin Trough 6.9 12/27/17 05:12 WBC RBC Hgb Hct MCV MCH MCHC RDW Plt Count PT INR pCO2 pO2 HCO3 ABG pH ABG Total CO2 ABG O2 Saturation ABG Base Excess Jose Test ABG Potassium A-a O2 Difference Glucose Lactate FiO2 Blood Gas Comments Crit Value Read Back Sodium Potassium Chloride Carbon Dioxide Anion Gap BUN Creatinine Est GFR ( Amer) Est GFR (Non-Af Amer) Random Glucose Calcium Phosphorus Magnesium Total Bilirubin AST ALT Alkaline Phosphatase Ammonia 21 D Total Protein Albumin Globulin Albumin/Globulin Ratio Arterial Blood Potassium Urine Color Urine Clarity Urine pH Ur Specific [place] Urine Protein Urine Glucose (UA) Urine Ketones Urine Blood Urine Nitrate Urine Bilirubin Urine Urobilinogen Ur Leukocyte Esterase Urine RBC (Auto) Urine Microscopic WBC Ur Squamous Epith Cells Urine Bacteria Hyaline Casts Vancomycin Trough [facility] 12/25/17 10:00 Naris MRSA Culture (Admit) - Final MRSA NOT DETECTED 12/24/17 18:00 Blood Blood Culture - Final Coagulase Neg Staphylococcus 12/24/17 18:00 Blood Gram Stain - Final 12/24/17 17:53 Blood S.aureus & Coag-Neg Staph PNA FISH - Final 12/24/17 17:53 Blood Blood Culture - Final Coagulase Neg Staphylococcus 12/24/17 17:53 Blood Gram Stain - Final 12/25/17 04:04 Urine,Clean Catch Urine Culture - Final 50-100,000 CFU/ML. MULTIPLE SPECIES. SUGGEST REPEAT SPECIMEN. 12/25/17 17:48 Urine,Ty Urine Culture - Final No Growth (<1,000 CFU/ML) Assessment and Plan (1) GI bleed Status: Acute (2) Alcohol abuse Status: Chronic (3) Cholelithiasis Status: Acute (4) Bacteremia Status: Acute - Assessment and Plan (Free Text) Assessment: A/P- 52 year old amle with multiple medical conditions includingETOH abuse, esophagitis, cirrhosis s/p TIPS , admitted with hematemesis and now found to have ? hemorrhage in brain and colitis and typhlitis along with cholecytitis on ct of abd report along with change in MS and GPC bacteremia. clinically improved. afebrile pancytopenia blood cx- coag neg staph bacteremia x 2 urine cx- contaminant plan- check TTE r/o any vegetations. advise to continue with IV vancomycin for coag neg staph bacteremia , day #3. keep trough ,20. will ask micro to check sens for vanco ( not reported on micro report). keep vanco trough <20. also to also continue patient on IV zosyn to treat the Typhlitis.day #3. follow GI rec. heme evaluation advised as well. ICu time 45 minutes.
--- NOTE | 2017-12-27 12:10 | CP.PCM.PN ---
Subjective - Date & Time of Evaluation Date of Evaluation: 12/27/17 Time of Evaluation: 12:10 - Subjective Subjective: Patient seen and examined at bedside this morning. Awake, alert, and oriented X3. Patient endorses having an appetite. Denies nausea, vomiting, abdominal pain. Objective - Vital Signs/Intake and Output Vital Signs (last 24 hours): Temp Pulse Resp BP Pulse Ox 98.8 F 74 14 104/65 96 12/27/17 12:00 12/27/17 12:00 12/27/17 12:00 12/27/17 12:00 12/27/17 12:00 Intake and Output: 12/27/17 12/27/17 06:59 18:59 Intake Total 1350 700 Output Total 200 Balance 1350 500 - Medications Medications: Current Medications Acetaminophen (Tylenol 650mg/20.3ml Solution Ud) 650 mg NG Q6 PRN PRN Reason: Temperature Last Admin: 12/25/17 21:57 Dose: 650 mg Folic Acid (Folic Acid) 1 mg PO DAILY [facility] Last Admin: 12/27/17 09:45 Dose: 1 mg Vancomycin HCl 1 gm/ Sodium (Chloride) 250 mls @ 166.667 mls/hr IVPB Q12 JANNIE PRN Reason: Protocol Last Admin: 12/27/17 09:00 Dose: 166.667 mls/hr Piperacillin Sod/Tazobactam (Sod 4.5 gm/ Sodium Chloride) 100 mls @ 100 mls/hr IVPB Q8 JANNIE PRN Reason: Protocol Last Admin: 12/27/17 08:59 Dose: 100 mls/hr Sodium Chloride (Sodium Chloride 0.9%) 1,000 mls @ 100 mls/hr IV .Q10H [facility] Stop: 12/27/17 13:15 Last Admin: 12/27/17 07:00 Dose: 100 mls/hr Levetiracetam 500 mg/ Sodium (Chloride) 105 mls @ 210 mls/hr IVPB Q12 [facility] Last Admin: 12/27/17 09:32 Dose: 210 mls/hr Lactulose (Enulose) 20 gm PO TID [facility] Last Admin: 12/27/17 09:43 Dose: 20 gm Lidocaine (Lidoderm) 1 ea TD DAILY PRN PRN Reason: Pain, moderate (4-7) Last Admin: 12/24/17 10:01 Dose: 1 ea Ondansetron HCl (Zofran Inj) 4 mg IVP Q6 PRN PRN Reason: Nausea/Vomiting Pantoprazole Sodium (Protonix Inj) 40 mg IVP DAILY [facility] Last Admin: 12/27/17 10:01 Dose: 40 mg Thiamine HCl (Vitamin B1 Tab) 100 mg PO DAILY [facility] Last Admin: 12/27/17 09:45 Dose: 100 mg Tobramycin Sulfate (Tobrex 0.3% Ophth Soln) 2 drop OU TID [facility] Last Admin: 12/27/17 08:52 Dose: 2 drop - Labs Labs: 12/27/17 05:12 12/27/17 05:12 PT 23.3 Seconds (9.8-13.1) H 12/26/17 09:44 INR 2.1 (0.9-1.2) H 12/26/17 09:44 - Constitutional Appears: Well, No Acute Distress - Head Exam Head Exam: ATRAUMATIC - Eye Exam Eye Exam: Scleral icterus - ENT Exam ENT Exam: Mucous Membranes Moist - Respiratory Exam Respiratory Exam: Clear to Ausculation Bilateral, NORMAL BREATHING PATTERN - Cardiovascular Exam Cardiovascular Exam: REGULAR RHYTHM, +S1, +S2 - GI/Abdominal Exam GI & Abdominal Exam: Soft, Normal Bowel Sounds. absent: Tenderness - Extremities Exam Extremities Exam: absent: Pedal Edema, Tenderness - Neurological Exam Neurological Exam: Alert, Awake, Oriented x3 - Psychiatric Exam Psychiatric exam: Normal Affect - Skin Skin Exam: Dry, Intact, Warm Assessment and Plan - Assessment and Plan (Free Text) Assessment: Assessment: 52 y/o alcoholic male w/ pmh significant for cirrhosis initially admitted for upper GI bleed, and found to have bacteraemia and hepatic encephalopathy Plan: 1) Altered Mental Status -improved, awake/alert/oriented X3 -likely 2/2 hepatic encephalopathy/bactermia -ammonia levels 95 on 12/24, started on Lactulose via NG, now 21 -CT head w/o contrast: left frontal scalp swelling, new left cerebral convexity extra-axial low density collection with questionable areas of acute blood products. Equivocal tiny right frontal extra-axial collection w/ possible acute blood products -neuro consult: likely 2/2 to hepatic encephalopathy, but recommends neurosurgery consult. Repeat Head CT pending and plan for EEG Wednesday. Keppra level pending. D/C librium. -Lactulose titrate up to 2 BM per day 2) Bacteraemia -blood cultures positive for Gram + Cocci in Clusters -UA: wnl -Urine Cx: probable contamination -elevated WBC count as per baseline comparisons -Abd/Pelvis CT: possible acute cholecystitis, typhlitis -ID on board -started on Vancomycin 1gm Q12H, Zosyn added -goal Vanco trough <20, pending -echo and TTE Pending -monitor vitals/labs -fever control as ordered 3)Hypokalemia -K+ 3.5 -likely 2/2 to lactulose-induced diarrhea -replenish as needed 4) Upper GI Bleed -resolved -s/p 3 units of PRBC transfusions -10/15/17 Upper GI endoscopy showed 7 mm superficial esophageal ulcer -GI consulted, case discussed w/ GI fellow. EGD not indicated at this time as per GI -Colonoscopy (06/2017) Poor prep, internal/external hemorrhoids -EGD (04/2017) - LA Grade C esophagitis with visible vessel at EGJ s/p clip and injection of epi, portal hypertensive gastropathy -will follow CBC -Zofran 4mg IVP Q6 PRN -protonix 40 mg IV 5) Pancytopenia -chronic -bone marrow suppression 2/2 to etoh abuse/liver failure -Absolute neutrophil count 1125 mm3 -will monitor w/ follow up labs in AM and trend -consider heme onc consult 6) Hx of Seizures: -neurology on board, will follow up further recommendations -cont home meds; Keppra 500mg BID -keppra level pending -EEG pending 7) History of ETOH abuse: -alcohol level 64 (12/21/17) -[facility] protocol -folic acid 1mg PO -Thiamine 100mg PO -D/C Librium 50 mg PO Q6 PRN -Clonidine PRN 8)Coagulopathy -Vitamin K 10mg PO ordered -secondary to liver dysfunction -INR 1.8, PT 20.4 -patient is hemodynamically stable -SCDs -will monitor 9) Lateral 10th and 11th rib fractures: -nondisplaced -lidocaine patches PRN for pain -s/p 1 gm morphine 10) Diet: -GI/altered hepatic diet 11) DVT prophylaxis: -SCDs 12) Code Status -full code
--- NOTE | 2017-12-27 16:39 | CT ---
PROCEDURE: CT HEAD WITHOUT CONTRAST. HISTORY: AMS COMPARISON: 12/25/2017 TECHNIQUE: Axial computed tomography images were obtained through the head/brain without intravenous contrast. Radiation dose: Total exam DLP = 793.77 mGy-cm. This CT exam was performed using one or more of the following dose reduction techniques: Automated exposure control, adjustment of the mA and/or kV according to patient size, and/or use of iterative reconstruction technique. FINDINGS: HEMORRHAGE: Essentially unchanged extra-axial collections along the inner table of the bilateral frontal parietal calvarium. The left extra-axial collection remains slightly asymmetrically more than compared to the right. BRAIN: No significantly increased mass effect. No herniation. Patchy and confluent hypodensities throughout the bilateral cerebral hemispheric white matter are most likely from chronic small vessel ischemic changes. Stable volume loss. VENTRICLES: Unremarkable. No hydrocephalus. CALVARIUM: Unremarkable. PARANASAL SINUSES: Retention cyst or polyps in the maxillary sinuses. Mucosal thickening in the ethmoid air cells and the sphenoid sinuses. MASTOID AIR CELLS: Unremarkable as visualized. No inflammatory changes. OTHER FINDINGS: None. IMPRESSION: Essentially unchanged left greater than right extra-axial collections along the inner table of bilateral frontoparietal calvarium. Foci of increased density likely represents acute hemorrhage. No acute territorial infarct. Sinus disease.
--- NOTE | 2017-12-27 22:20 | PN ---
DATE: 12/27/2017 CRITICAL CARE PROGRESS NOTE LOCATION: The patient in ICU, bed 422. TIME SPENT: 35 minutes. SUBJECTIVE: The patient is seen and evaluated at the bedside. Past medical, surgical, family and social history reviewed as noted in the history and physical. A 52-year-old male with a history significant for EtOH abuse, liver cirrhosis, status post TIPS in 2014, severe esophagitis, admitted through emergency room on 12/22/2017, complaining of three episodes of hematemesis. The patient has multiple admissions for the same. On first admission, hemoglobin noted to be 7.2, received transfusion of packed red blood cells. CT of the head obtained due to change in the mental status showed subdural hematoma. Seen by Neurology and Neurosurgery consult. Recommended CT of the head this morning, pending. Overnight, no further seizure, improved mental status. This morning, alert, awake, follows commands appropriate, noted to have mild cough. Swallow evaluation pending. Denies headache, shortness of breath, chest pain, palpitations, abdominal discomfort. No further melena noted. PHYSICAL EXAMINATION: VITAL SIGNS: Temperature 98.8, heart rate 74 and regular, blood pressure 104/65, mean arterial pressure 78, respiratory rate 14. Intake 2100, output 750, positive balance 1350. HEAD, EYES, EARS, NOSE AND THROAT: Pupils are reactive. Conjunctivae pale. Sclerae white. CHEST: Bilateral breath sounds. Clear to auscultation. HEART: Rhythm regular. S1, S2 normal. ABDOMEN: Bowel sounds present. Soft. EXTREMITIES: No clubbing, cyanosis, edema. NEURO EXAMINATION: Nonfocal. LABORATORY DATA: WBC 2.9, hemoglobin 8.2, hematocrit 25.1, platelet count 54. PT 23.3, INR 2.1. ABG: The pH of 7.53, pCO2 of 23, pO2 of 72, on FiO2 of 21%. SMA-7: Sodium 143, potassium 3.5, chloride 117, CO2 of 16, blood urea nitrogen 15, creatinine 0.5, random glucose 90, calcium 7.3, phosphorus 3, magnesium 1.6. Total bilirubin 3, AST 78, ALT 35, alkaline phosphatase 127. Ammonia level reduced to 21. Total protein 6.3, albumin 2.4. Urinalysis negative. Stool occult blood positive. Toxicology screen, alcohol level 64. Vancomycin trough level 6.9. Microbiology: Blood culture, coagulase-negative staphylococcus. IMPRESSION: 1. Neuro: Alert, awake, oriented to name, place, and time. Denies headache. No blurring of vision. 2. Pulmonary: No acute issues noted. 3. Cardiac: Normotensive. No cardiac arrhythmia. 4. Gastrointestinal: No further active hematemesis or melena noted. Hemoglobin and hematocrit remains stable at 8.2/25.1. Leukopenia and thrombocytopenia persists. 5. Endocrinology: No history of hypothyroidism, diabetes. Maintain sugar below 180. 6. Infectious Disease: Coagulase-negative staphylococci in the blood. Subdural collection by head CT. CT abdomen suggestive of typhlitis, on vancomycin and Zosyn as per Infectious Disease consult. Monitor further for seizure and impending delirium tremens. Monitor hemoglobin, hematocrit, platelet count. Continue deep venous thrombosis and gastrointestinal prophylaxis. Keep the head of bed at 30 degrees. Lincoln Gutierrez MD
[2017-12-28] MEDS: Piperacillin/Tazobact 4.5 GM in Sodium Chloride 0.9% 100 ML IVPB SCH ×4 (00:22→18:45)
[2017-12-28 06:41] LABS: ALB/GLOB RATIO 0.6 (1.0-2.1); ALBUMIN 2.2 g/dL (3.5-5.0); ALT/SGPT 39 U/L (21-72); AST/SGOT 86 U/L (17-59); BLOOD UREA NITROGEN 14 mg/dl (9-20); CALCIUM 7.4 mg/dL (8.4-10.2); GFR AFRICAN-AMERICAN > 60; GFR NON-AFRICAN AMERICAN > 60; HEMOGLOBIN 8.5 g/dL (12.0-18.0); MEAN CELL VOLUME 90.7 fl (80.0-94.0); MEAN CORPUSCULAR HEMOGLOBIN 29.7 pg (27.0-31.0); MEAN CORPUSCULAR HGB CONC 32.8 g/dL (33.0-37.0); RBC 2.87 Mil/uL (4.40-5.90); RED CELL DISTRIBUTION WIDTH 18.8 % (11.5-14.5); WHITE BLOOD COUNT 2.2 K/uL (4.8-10.8)
--- NOTE | 2017-12-28 08:02 | CP.PCM.PN ---
<Reyes Rangel - Last Filed: 12/28/17 08:04> Subjective - Date & Time of Evaluation Date of Evaluation: 12/28/17 Time of Evaluation: 07:00 - Subjective Subjective: PGY5 Pt seen and examined bedside Denies any abd pain Tolerated diet x2 BM yesterday x1 BM overnight No complaints still slightly confused but oriented x 3 ROS: 12 point ROS conducted, neg other than above Objective - Vital Signs/Intake and Output Vital Signs (last 24 hours): Temp Pulse Resp BP Pulse Ox 99.4 F 91 H 19 113/60 96 12/28/17 00:00 12/28/17 00:00 12/28/17 00:00 12/28/17 00:00 12/28/17 00:00 - Medications Medications: Current Medications Acetaminophen (Tylenol 650mg/20.3ml Solution Ud) 650 mg NG Q6 PRN PRN Reason: Temperature Last Admin: 12/25/17 21:57 Dose: 650 mg Folic Acid (Folic Acid) 1 mg PO DAILY [facility] Last Admin: 12/27/17 09:45 Dose: 1 mg Vancomycin HCl 1 gm/ Sodium (Chloride) 250 mls @ 166.667 mls/hr IVPB Q12 JANNIE PRN Reason: Protocol Last Admin: 12/27/17 20:20 Dose: 166.667 mls/hr Piperacillin Sod/Tazobactam (Sod 4.5 gm/ Sodium Chloride) 100 mls @ 100 mls/hr IVPB Q8 JANNIE PRN Reason: Protocol Last Admin: 12/28/17 00:22 Dose: 100 mls/hr Lactulose (Enulose) 20 gm PO TID [facility] Last Admin: 12/27/17 17:08 Dose: 20 gm Levetiracetam (Keppra) 500 mg PO BID [facility] Last Admin: 12/27/17 17:09 Dose: 500 mg Lidocaine (Lidoderm) 1 ea TD DAILY PRN PRN Reason: Pain, moderate (4-7) Last Admin: 12/24/17 10:01 Dose: 1 ea Ondansetron HCl (Zofran Inj) 4 mg IVP Q6 PRN PRN Reason: Nausea/Vomiting Pantoprazole Sodium (Protonix Ec Tab) 40 mg PO DAILY [facility] Thiamine HCl (Vitamin B1 Tab) 100 mg PO DAILY [facility] Last Admin: 07/09/18 09:45 Dose: 100 mg Tobramycin Sulfate (Tobrex 0.3% Ophth Soln) 2 drop OU TID JANNIE Last Admin: 12/27/17 17:09 Dose: 2 drop - Labs Labs: 12/28/17 05:50 12/28/17 05:50 PT 23.3 Seconds (9.8-13.1) H 12/26/17 09:44 INR 2.1 (0.9-1.2) H 12/26/17 09:44 - Constitutional Appears: No Acute Distress, Confused - Head Exam Head Exam: ATRAUMATIC, NORMOCEPHALIC - Eye Exam Eye Exam: Normal appearance, Scleral icterus - Respiratory Exam Respiratory Exam: Clear to Ausculation Bilateral, NORMAL BREATHING PATTERN. absent: Rales, Rhonchi, Wheezes, Respiratory Distress - Cardiovascular Exam Cardiovascular Exam: REGULAR RHYTHM, +S1, +S2 - GI/Abdominal Exam GI & Abdominal Exam: Soft, Normal Bowel Sounds. absent: Distended, Firm, Guarding, Rigid, Tenderness, Organomegaly - Extremities Exam Extremities Exam: absent: Joint Swelling, Pedal Edema - Back Exam Back Exam: NORMAL INSPECTION - Neurological Exam Neurological Exam: Alert, Awake, Oriented x3 - Psychiatric Exam Psychiatric exam: Normal Affect, Normal Mood - Skin Skin Exam: Dry, Intact, Normal Color, Warm Assessment and Plan - Assessment and Plan (Free Text) Assessment: Patient is a 52yo male with PMHx significant for decompensated EtOH cirrhosis s/ p TIPS (2014), severe esophagitis and recently noted esophageal ulcer (September), EtOH withdrawal seizures who presented to the ED with complaint of hematemesis and hematochezia Ascending/cecal colitis Grm Neg staph bacteremia, contaminate? Hematemesis/hematochezia-resolved HE grade 2 (improving) Anemia likely 2/2 above; r/o PUD, malignancy, varicies, esophageal ulcer Hx Decompensated EtOH cirrhosis s/p TIPS, MELD 18 on admission, DF:45 Hx Esophageal ulcer clean based Suspected gastroparesis EtOH abuse/intoxication Hx of large internal/external hemorrhoids Plan: -Continue supportive care -No active GI bleeding; no further hematemesis or melena since admission -transfuse to keep hgb > 7 -Monitor H/H -Remains hemodynamically stable -diet as per speech -continue lactulose TID until x 2 BM -continue zosyn and Vancomycin as per ID -MELD 19 12/26/17 D/W Dr. Bradley <Gage Bradley - Last Filed: 12/28/17 13:36> Objective - Vital Signs/Intake and Output Vital Signs (last 24 hours): Temp Pulse Resp BP Pulse Ox 98 F 75 20 101/62 95 12/28/17 08:29 12/28/17 08:29 12/28/17 08:29 12/28/17 08:29 12/28/17 08:29 - Medications Medications: Current Medications Acetaminophen (Tylenol 650mg/20.3ml Solution Ud) 650 mg NG Q6 PRN PRN Reason: Temperature Last Admin: 12/25/17 21:57 Dose: 650 mg Folic Acid (Folic Acid) 1 mg PO DAILY [facility] Last Admin: 12/28/17 09:49 Dose: 1 mg Vancomycin HCl 1 gm/ Sodium (Chloride) 250 mls @ 166.667 mls/hr IVPB Q12 JANNIE PRN Reason: Protocol Last Admin: 12/28/17 09:56 Dose: 166.667 mls/hr Piperacillin Sod/Tazobactam (Sod 4.5 gm/ Sodium Chloride) 100 mls @ 100 mls/hr IVPB Q8 JANNIE PRN Reason: Protocol Last Admin: 12/28/17 09:55 Dose: 100 mls/hr Lactulose (Enulose) 20 gm PO TID [facility] Last Admin: 12/28/17 13:02 Dose: 20 gm Levetiracetam (Keppra) 500 mg PO BID [facility] Last Admin: 12/28/17 09:49 Dose: 500 mg Lidocaine (Lidoderm) 1 ea TD DAILY PRN PRN Reason: Pain, moderate (4-7) Last Admin: 12/28/17 09:49 Dose: 1 ea Nicotine (Nicoderm Cq) 1 patch TD DAILY [facility] Last Admin: 12/28/17 13:02 Dose: 1 patch Ondansetron HCl (Zofran Inj) 4 mg IVP Q6 PRN PRN Reason: Nausea/Vomiting Pantoprazole Sodium (Protonix Ec Tab) 40 mg PO DAILY [facility] Last Admin: 12/28/17 09:50 Dose: 40 mg Thiamine HCl (Vitamin B1 Tab) 100 mg PO DAILY [facility] Last Admin: 12/28/17 09:49 Dose: 100 mg Tobramycin Sulfate (Tobrex 0.3% Ophth Soln) 2 drop OU TID JANNIE Last Admin: 12/28/17 09:50 Dose: 2 drop - Labs Labs: 12/28/17 05:50 12/28/17 05:50 PT 20.8 Seconds (9.8-13.1) H 12/28/17 07:52 INR 1.9 (0.9-1.2) H 12/28/17 07:52 Attending/Attestation - Attestation I have personally seen and examined this patient.: Yes I have fully participated in the care of the patient.: Yes I have reviewed all pertinent clinical information, including history, physical exam and plan: Yes Notes (Text): 12/28/17 13:36 This is a 52 yo male with PMHx significant for decompensated EtOH cirrhosis s/p TIPS (2014), severe esophagitis and recently noted esophageal ulcer (October 15, 2017), EtOH withdrawal seizures who presented to the ED with complaint of hematemesis and hematochezia now resolved. GI reconsulted for grade 3 Hepatic encephalopathy which is resolving. Patient more awake today and oriented x 2. . Blood cultures are growing gram positive cocci. CTAP shows cecal colitis. Agree with antibiotics. HE worsened due to infection. Lactulose as tolerated. Diet low salt as tolerated. Consider ECHO and TIPS infection if no other bacteremia source found. Aspiration precautions. Lactulose enemas.
[2017-12-28 08:50] LABS: INR 1.9 (0.9-1.2); PROTHROMBIN TIME 20.8 Seconds (9.8-13.1)
[2017-12-28] MEDS: Lidocaine 5% Patch TD PRN (09:49)
[2017-12-28] MEDS: Pantoprazole 40 mg EC Tab PO SCH (09:50)
[2017-12-28] MEDS: Tobramycin 0.3% OPHT SOLN OU SCH ×3 (09:50→19:46)
[2017-12-28] MEDS ORDERED: Potassium Chloride 20 mEq ER Tab PO ONE (09:57)
--- NOTE | 2017-12-28 10:05 | CP.PCM.PN ---
Subjective - Date & Time of Evaluation Date of Evaluation: 12/28/17 Time of Evaluation: 10:05 - Subjective Subjective: Patient seen and examined at bedside, eating breakfast. Awake, alert, and oriented X3. Denies nausea, vomiting, abdominal pain. No acute events over night. Objective - Vital Signs/Intake and Output Vital Signs (last 24 hours): Temp Pulse Resp BP Pulse Ox 98 F 75 20 101/62 95 12/28/17 08:29 12/28/17 08:29 12/28/17 08:29 12/28/17 08:29 12/28/17 08:29 - Medications Medications: Current Medications Acetaminophen (Tylenol 650mg/20.3ml Solution Ud) 650 mg NG Q6 PRN PRN Reason: Temperature Last Admin: 12/25/17 21:57 Dose: 650 mg Folic Acid (Folic Acid) 1 mg PO DAILY [facility] Last Admin: 12/28/17 09:49 Dose: 1 mg Vancomycin HCl 1 gm/ Sodium (Chloride) 250 mls @ 166.667 mls/hr IVPB Q12 JANNIE PRN Reason: Protocol Last Admin: 12/28/17 09:56 Dose: 166.667 mls/hr Piperacillin Sod/Tazobactam (Sod 4.5 gm/ Sodium Chloride) 100 mls @ 100 mls/hr IVPB Q8 JANNIE PRN Reason: Protocol Last Admin: 12/28/17 09:55 Dose: 100 mls/hr Lactulose (Enulose) 20 gm PO TID [facility] Last Admin: 12/28/17 09:50 Dose: 20 gm Levetiracetam (Keppra) 500 mg PO BID [facility] Last Admin: 12/28/17 09:49 Dose: 500 mg Lidocaine (Lidoderm) 1 ea TD DAILY PRN PRN Reason: Pain, moderate (4-7) Last Admin: 12/28/17 09:49 Dose: 1 ea Ondansetron HCl (Zofran Inj) 4 mg IVP Q6 PRN PRN Reason: Nausea/Vomiting Pantoprazole Sodium (Protonix Ec Tab) 40 mg PO DAILY [facility] Last Admin: 12/28/17 09:50 Dose: 40 mg Potassium Chloride (K-Dur 20 Meq Er Tab) 40 meq PO ONCE ONE Stop: 12/28/17 09:58 Thiamine HCl (Vitamin B1 Tab) 100 mg PO DAILY [facility] Last Admin: 12/28/17 09:49 Dose: 100 mg Tobramycin Sulfate (Tobrex 0.3% Ophth Soln) 2 drop OU TID JANNIE Last Admin: 12/28/17 09:50 Dose: 2 drop - Labs Labs: 12/28/17 05:50 12/28/17 05:50 PT 20.8 Seconds (9.8-13.1) H 12/28/17 07:52 INR 1.9 (0.9-1.2) H 12/28/17 07:52 - Constitutional Appears: Well, No Acute Distress - Eye Exam Eye Exam: Scleral icterus - ENT Exam ENT Exam: Mucous Membranes Moist - Respiratory Exam Respiratory Exam: Clear to Ausculation Bilateral, NORMAL BREATHING PATTERN - Cardiovascular Exam Cardiovascular Exam: REGULAR RHYTHM, +S1, +S2 - GI/Abdominal Exam GI & Abdominal Exam: Soft, Normal Bowel Sounds. absent: Tenderness - Neurological Exam Neurological Exam: Alert, Awake, Oriented x3 - Skin Skin Exam: Dry, Intact, Warm Assessment and Plan - Assessment and Plan (Free Text) Assessment: Assessment: 52 y/o alcoholic male w/ pmh significant for cirrhosis initially admitted for upper GI bleed, and found to have bacteraemia and hepatic encephalopathy Plan: 1) Altered Mental Status -improved, awake/alert/oriented X3 -likely 2/2 hepatic encephalopathy/bactermia -ammonia levels 95 on 12/24, started on Lactulose via NG, now 21 -CT head w/o contrast: left frontal scalp swelling, new left cerebral convexity extra-axial low density collection with questionable areas of acute blood products. Equivocal tiny right frontal extra-axial collection w/ possible acute blood products -neuro consult: likely 2/2 to hepatic encephalopathy, but recommends neurosurgery consult. -Repeat Head CT: no acute changes -EEG ordered -Keppra level pending. D/C librium. -Lactulose titrate up to 2 BM per day -PT eval/consult ordered 2) Bacteraemia -12/24/17 blood cultures positive for Gram + Cocci in Clusters -repeat blood culture ordered -UA: wnl -Urine Cx: probable contamination -elevated WBC count as per baseline comparisons -Abd/Pelvis CT: possible acute cholecystitis, typhlitis -ID on board -started on Vancomycin 1gm Q12H, Zosyn added -goal Vanco trough <20, pending -echo and TTE Pending -monitor vitals/labs -fever control as ordered 3)Hypokalemia -K+ 3.5 -likely 2/2 to lactulose-induced diarrhea -replenish as needed 4) Upper GI Bleed -resolved -s/p 3 units of PRBC transfusions -10/15/17 Upper GI endoscopy showed 7 mm superficial esophageal ulcer -GI consulted, case discussed w/ GI fellow. EGD not indicated at this time as per GI -Colonoscopy (06/2017) Poor prep, internal/external hemorrhoids -EGD (04/2017) - LA Grade C esophagitis with visible vessel at EGJ s/p clip and injection of epi, portal hypertensive gastropathy -will follow CBC -Zofran 4mg IVP Q6 PRN -protonix 40 mg IV 5) Pancytopenia -chronic -platelet count 28 likely 2/2 to live failure vs. antibiotic induced? -bone marrow suppression 2/2 to etoh abuse/liver failure -Absolute neutrophil count 1125 mm3 -will monitor w/ follow up labs in AM and trend\ -consider heme onc consult 6) Hx of Seizures: -neurology on board, will follow up further recommendations -cont home meds; Keppra 500mg BID -keppra level pending -EEG pending 7) History of ETOH abuse: -alcohol level 64 (12/21/17) -[facility] protocol -folic acid 1mg PO -Thiamine 100mg PO -D/C Librium 50 mg PO Q6 PRN -Clonidine PRN 8)Coagulopathy -s/p Vitamin K 10mg PO; INR 1.9 -secondary to liver dysfunction -patient is hemodynamically stable -SCDs -will monitor 9) Lateral 10th and 11th rib fractures: -nondisplaced -lidocaine patches PRN for pain -s/p 1 gm morphine 10) Diet: -GI/altered hepatic diet 11) DVT prophylaxis: -SCDs 12) Code Status -full code
--- NOTE | 2017-12-28 14:50 | PQF ---
PROVIDER RESPONSE TEXT: Pt as BActeremia with sepsis ( T103 P117) REVIEWER QUERY TEXT: Bacteremia Underlying Cause Bacteremia is documented in the Medical Record. 1) Please specify if this is Bacteremia WITH or WITHOUT Sepsis. 2) Above condition Present on Admission or not. 3)Please specify the underlying cause of bacteremia AFTER Workup. (suspected, probable, questionable, or clinical is acceptable if documented at the time of discharge) 4) Please also clarify if bacteremia is due to a device (please specify device) ( TIPS noted) The patient's Clinical Indicators include: 52 y/o male w/ hx of seizures and cirrhosis secondary to alcohol abuse s/p TIPS who presented to the ER (12/21) w/ c/o of five episodes of bloody vomitus 12/24 [employer] called: HR>140, Temp 103, somnolent. Ammonia level 95. WBC up to 7.8 from 2.8.BLOOD CS Coag n egative staph. URINE CS: 50,000-100,000 multiple species suggest repeat specimen. On Admission: AFEBRILE, + tachycardia 103 12/24: TEMP: 100, 103, 101.5, 99.8, 100, 100.3, 100.5 12/25: 102.1 HR: 100, 112, 117, 101, 104, 112, 115, 89, 112 BP: 103/53, 96/55, 102/50, 114/67, 102/50, 114/67, 111/62, 99/68 Treated with IVAB Query created by: Maribell Willingham on 12/28/2017 2:10 PM Electronically signed by: Chanelle Rowe MD 12/28/2017 2:46 PM
--- NOTE | 2017-12-28 16:47 | CP.PCM.PN ---
Subjective - Date & Time of Evaluation Date of Evaluation: 12/28/17 Time of Evaluation: 13:00 - Subjective Subjective: ID note- Pt. seen and examined today in med-surg floor. clinically better. more alert and awake. afebrile. Objective - Vital Signs/Intake and Output Vital Signs (last 24 hours): Temp Pulse Resp BP Pulse Ox 97.8 F 87 18 100/53 L 97 12/28/17 16:37 12/28/17 16:37 12/28/17 16:37 12/28/17 16:37 12/28/17 16:37 - Medications Medications: Current Medications Acetaminophen (Tylenol 650mg/20.3ml Solution Ud) 650 mg NG Q6 PRN PRN Reason: Temperature Last Admin: 12/25/17 21:57 Dose: 650 mg Folic Acid (Folic Acid) 1 mg PO DAILY [facility] Last Admin: 12/28/17 09:49 Dose: 1 mg Vancomycin HCl 1 gm/ Sodium (Chloride) 250 mls @ 166.667 mls/hr IVPB Q12 JANNIE PRN Reason: Protocol Last Admin: 12/28/17 09:56 Dose: 166.667 mls/hr Piperacillin Sod/Tazobactam (Sod 4.5 gm/ Sodium Chloride) 100 mls @ 100 mls/hr IVPB Q8 JANNIE PRN Reason: Protocol Last Admin: 12/28/17 09:55 Dose: 100 mls/hr Lactulose (Enulose) 20 gm PO TID [facility] Last Admin: 12/28/17 13:02 Dose: 20 gm Levetiracetam (Keppra) 500 mg PO BID [facility] Last Admin: 12/28/17 09:49 Dose: 500 mg Lidocaine (Lidoderm) 1 ea TD DAILY PRN PRN Reason: Pain, moderate (4-7) Last Admin: 12/28/17 09:49 Dose: 1 ea Nicotine (Nicoderm Cq) 1 patch TD DAILY [facility] Last Admin: 12/28/17 13:02 Dose: 1 patch Ondansetron HCl (Zofran Inj) 4 mg IVP Q6 PRN PRN Reason: Nausea/Vomiting Pantoprazole Sodium (Protonix Ec Tab) 40 mg PO DAILY [facility] Last Admin: 12/28/17 09:50 Dose: 40 mg Thiamine HCl (Vitamin B1 Tab) 100 mg PO DAILY [facility] Last Admin: 12/28/17 09:49 Dose: 100 mg Tobramycin Sulfate (Tobrex 0.3% Ophth Soln) 2 drop OU TID [facility]ANNIE Last Admin: 12/28/17 09:50 Dose: 2 drop - Labs Labs: - Additional Findings Additional findings: - Constitutional Appears: Chronically Ill Additional comments: - Respiratory Exam Additional comments: no wheezing decrease breath sounds at right base - Cardiovascular Exam Cardiovascular Exam: Tachycardia, +S1, +S2 - GI/Abdominal Exam GI & Abdominal Exam: Soft Additional comments: bowel sounds heard ND NT - Extremities Exam Additional comments: no edema b/l LE - Neurological Exam Neurological exam: Awake and more alert Laboratory Results - last 72 hr 12/25/17 12/26/17 12/26/17 17:46 04:40 04:40 WBC 3.8 L RBC 2.65 L Hgb 8.0 L Hct 23.9 L MCV 90.2 D MCH 30.1 MCHC 33.3 RDW 19.1 H Plt Count 63 L PT INR Sodium 144 Potassium 3.2 L Chloride 118 H Carbon Dioxide 17 L Anion Gap 12 BUN 22 H Creatinine 0.7 L Est GFR ( Amer) > 60 Est GFR (Non-Af Amer) > 60 Random Glucose 121 H Calcium 7.5 L Phosphorus Magnesium Total Bilirubin 3.0 H AST 70 H ALT 36 Alkaline Phosphatase 125 Ammonia Total Protein 6.1 L Albumin 2.4 L Globulin 3.7 Albumin/Globulin Ratio 0.6 L Urine Color [place] Urine Clarity Slighty-cloudy Urine pH 6.0 Ur Specific [place] 1.024 Urine Protein Negative Urine Glucose (UA) Neg Urine Ketones Negative Urine Blood Small Urine Nitrate Negative Urine Bilirubin Negative Urine Urobilinogen 4.0 Ur Leukocyte Esterase Neg Urine RBC (Auto) 6 H Urine Microscopic WBC 4 Ur Squamous Epith Cells < 1 Vancomycin Trough 12/26/17 12/26/17 12/27/17 09:44 21:00 05:12 WBC 2.9 L RBC 2.73 L Hgb 8.2 L Hct 25.1 L MCV 91.8 MCH 30.0 MCHC 32.7 L RDW 19.5 H Plt Count 54 L PT 23.3 H INR 2.1 H Sodium Potassium Chloride Carbon Dioxide Anion Gap BUN Creatinine Est GFR ( Amer) Est GFR (Non-Af Amer) Random Glucose Calcium Phosphorus Magnesium Total Bilirubin AST ALT Alkaline Phosphatase Ammonia Total Protein Albumin Globulin Albumin/Globulin Ratio Urine Color Urine Clarity Urine pH Ur Specific [place] Urine Protein Urine Glucose (UA) Urine Ketones Urine Blood Urine Nitrate Urine Bilirubin Urine Urobilinogen Ur Leukocyte Esterase Urine RBC (Auto) Urine Microscopic WBC Ur Squamous Epith Cells Vancomycin Trough 6.9 12/27/17 12/27/17 12/28/17 05:12 05:12 05:50 WBC 2.2 L RBC 2.87 L Hgb 8.5 L Hct 26.0 L MCV 90.7 MCH 29.7 MCHC 32.8 L RDW 18.8 H Plt Count 28 L* D PT INR Sodium 143 Potassium 3.5 L Chloride 117 H Carbon Dioxide 16 L Anion Gap 14 BUN 15 Creatinine 0.5 L Est GFR ( Amer) > 60 Est GFR (Non-Af Amer) > 60 Random Glucose 90 Calcium 7.3 L Phosphorus 3.0 Magnesium 1.6 Total Bilirubin 3.0 H AST 78 H ALT 35 Alkaline Phosphatase 127 H Ammonia 21 D Total Protein 6.3 Albumin 2.4 L Globulin 3.9 Albumin/Globulin Ratio 0.6 L Urine Color Urine Clarity Urine pH Ur Specific [place] Urine Protein Urine Glucose (UA) Urine Ketones Urine Blood Urine Nitrate Urine Bilirubin Urine Urobilinogen Ur Leukocyte Esterase Urine RBC (Auto) Urine Microscopic WBC Ur Squamous Epith Cells Vancomycin Trough 12/28/17 12/28/17 05:50 07:52 WBC RBC Hgb Hct MCV MCH MCHC RDW Plt Count PT 20.8 H INR 1.9 H Sodium 137 Potassium 3.5 L Chloride 110 H Carbon Dioxide 19 L Anion Gap 12 BUN 14 Creatinine 0.6 L Est GFR ( Amer) > 60 Est GFR (Non-Af Amer) > 60 Random Glucose 97 Calcium 7.4 L Phosphorus Magnesium Total Bilirubin 2.5 H AST 86 H ALT 39 Alkaline Phosphatase 113 Ammonia Total Protein 5.9 L Albumin 2.2 L Globulin 3.7 Albumin/Globulin Ratio 0.6 L Urine Color Urine Clarity Urine pH Ur Specific [place] Urine Protein Urine Glucose (UA) Urine Ketones Urine Blood Urine Nitrate Urine Bilirubin Urine Urobilinogen Ur Leukocyte Esterase Urine RBC (Auto) Urine Microscopic WBC Ur Squamous Epith Cells Vancomycin Trough Microbiology 12/24/17 17:53 Blood S.aureus & Coag-Neg Staph PNA FISH - Final 12/24/17 17:53 Blood Blood Culture - Final Coagulase Neg Staphylococcus 12/24/17 17:53 Blood Gram Stain - Final 12/27/17 11:20 Blood Blood Culture - Preliminary NO GROWTH AFTER 24 HOURS 12/27/17 11:20 Blood Blood Culture - Preliminary NO GROWTH AFTER 24 HOURS 12/25/17 10:00 Naris MRSA Culture (Admit) - Final MRSA NOT DETECTED 12/24/17 18:00 Blood Blood Culture - Final Coagulase Neg Staphylococcus 12/24/17 18:00 Blood Gram Stain - Final 12/25/17 04:04 Urine,Clean Catch Urine Culture - Final 50-100,000 CFU/ML. MULTIPLE SPECIES. SUGGEST REPEAT SPECIMEN. 12/25/17 17:48 Urine,Ty Urine Culture - Final No Growth (<1,000 CFU/ML) Assessment and Plan (1) GI bleed Status: Acute (2) Alcohol abuse Status: Chronic (3) Cholelithiasis Status: Acute (4) Bacteremia Status: Acute - Assessment and Plan (Free Text) Assessment: A/P- 52 year old amle with multiple medical conditions includingETOH abuse, esophagitis, cirrhosis s/p TIPS , admitted with hematemesis and now found to have ? hemorrhage in brain and colitis and typhlitis along with cholecytitis on ct of abd report along with change in MS and GPC bacteremia. clinically improved. afebrile pancytopenia thrombocytopenia wworse today could be multifactorial liver cirrhosis vs etoh abuse, vs infection vs abx blood cx- coag neg staph bacteremia x 2 urine cx- contaminant repeat blood cx- neg x 2 plan- check TTE r/o any vegetations. advise to continue with IV vancomycin for coag neg staph bacteremia , day #4. keep trough < 20. if thrombocytopenia increases then advise to decrease the vanco dose or switch to IV daptomycin. also to also continue patient on IV zosyn to treat the Typhlitis.day #4 d/c zosyn tomm. follow GI rec. heme evaluation advised as well. All above d/w DR.Pierre Montaño.
[2017-12-29] MEDS: Piperacillin/Tazobact 4.5 GM in Sodium Chloride 0.9% 100 ML IVPB SCH ×3 (01:02→17:38)
[2017-12-29] MEDS: Sodium Chloride 0.9% 1,000 ML IV SCH (03:24)
[2017-12-29 07:03] LABS: HEMOGLOBIN 7.7 g/dL (12.0-18.0); MEAN CELL VOLUME 89.8 fl (80.0-94.0); MEAN CORPUSCULAR HEMOGLOBIN 30.5 pg (27.0-31.0); RBC 2.51 Mil/uL (4.40-5.90); RED CELL DISTRIBUTION WIDTH 18.4 % (11.5-14.5); WHITE BLOOD COUNT 2.2 K/uL (4.8-10.8)
[2017-12-29 08:02] LABS: ALB/GLOB RATIO 0.6 (1.0-2.1); ALBUMIN 2.2 g/dL (3.5-5.0); ALT/SGPT 43 U/L (21-72); AST/SGOT 77 U/L (17-59); BLOOD UREA NITROGEN 10 mg/dl (9-20); CALCIUM 7.4 mg/dL (8.4-10.2); GFR AFRICAN-AMERICAN > 60; GFR NON-AFRICAN AMERICAN > 60
[2017-12-29] MEDS: Tobramycin 0.3% OPHT SOLN OU SCH ×3 (08:41→17:40)
[2017-12-29] MEDS: Pantoprazole 40 mg EC Tab PO SCH (08:42)
--- NOTE | 2017-12-29 10:16 | CP.PCM.PN ---
<Reyes Rangel - Last Filed: 12/29/17 10:20> Subjective - Date & Time of Evaluation Date of Evaluation: 12/29/17 Time of Evaluation: 08:00 - Subjective Subjective: PGY5 GI follow-up Pt seen and examined bedside Denies any abd pain Tolerating clears Denies any nausea or vomiting ROS: 12 point ROS conduced, neg other than above Objective - Vital Signs/Intake and Output Vital Signs (last 24 hours): Temp Pulse Resp BP Pulse Ox 97.4 F L 75 20 110/65 100 12/29/17 08:12 12/29/17 08:12 12/29/17 08:12 12/29/17 08:12 12/29/17 08:12 Intake and Output: 12/29/17 12/29/17 06:59 18:59 Intake Total 1700 Balance 1700 - Medications Medications: Current Medications Acetaminophen (Tylenol 650mg/20.3ml Solution Ud) 650 mg NG Q6 PRN PRN Reason: Temperature Last Admin: 12/25/17 21:57 Dose: 650 mg Folic Acid (Folic Acid) 1 mg PO DAILY [facility] Last Admin: 12/29/17 08:41 Dose: 1 mg Vancomycin HCl 1 gm/ Sodium (Chloride) 250 mls @ 166.667 mls/hr IVPB Q12 JANNIE PRN Reason: Protocol Last Admin: 12/29/17 09:05 Dose: 166.667 mls/hr Piperacillin Sod/Tazobactam (Sod 4.5 gm/ Sodium Chloride) 100 mls @ 100 mls/hr IVPB Q8 JANNIE PRN Reason: Protocol Last Admin: 12/29/17 09:04 Dose: 100 mls/hr Lactulose (Enulose) 20 gm PO TID [facility] Last Admin: 12/29/17 08:41 Dose: 20 gm Levetiracetam (Keppra) 500 mg PO BID [facility] Last Admin: 12/29/17 08:42 Dose: 500 mg Lidocaine (Lidoderm) 1 ea TD DAILY PRN PRN Reason: Pain, moderate (4-7) Last Admin: 12/28/17 09:49 Dose: 1 ea Nicotine (Nicoderm Cq) 1 patch TD DAILY [facility] Last Admin: 12/29/17 08:42 Dose: 1 patch Ondansetron HCl (Zofran Inj) 4 mg IVP Q6 PRN PRN Reason: Nausea/Vomiting Pantoprazole Sodium (Protonix Ec Tab) 40 mg PO DAILY [facility] Last Admin: 12/29/17 08:42 Dose: 40 mg Thiamine HCl (Vitamin B1 Tab) 100 mg PO DAILY [facility] Last Admin: 12/29/17 08:42 Dose: 100 mg Tobramycin Sulfate (Tobrex 0.3% Ophth Soln) 2 drop OU TID [facility] Last Admin: 12/29/17 08:41 Dose: 2 drop - Labs Labs: 12/29/17 06:55 12/29/17 06:55 PT 20.8 Seconds (9.8-13.1) H 12/28/17 07:52 INR 1.9 (0.9-1.2) H 12/28/17 07:52 - Constitutional Appears: Well, No Acute Distress - Head Exam Head Exam: ATRAUMATIC, NORMOCEPHALIC - Eye Exam Eye Exam: Normal appearance - ENT Exam ENT Exam: Mucous Membranes Moist - Neck Exam Neck Exam: Normal Inspection - Respiratory Exam Respiratory Exam: Clear to Ausculation Bilateral, NORMAL BREATHING PATTERN. absent: Rales, Rhonchi, Wheezes, Respiratory Distress - Cardiovascular Exam Cardiovascular Exam: REGULAR RHYTHM, +S1, +S2 - GI/Abdominal Exam GI & Abdominal Exam: Soft, Normal Bowel Sounds. absent: Distended, Firm, Guarding, Rigid, Tenderness, Organomegaly, Rebound - Extremities Exam Extremities Exam: absent: Joint Swelling, Pedal Edema - Neurological Exam Neurological Exam: Alert, Awake, Oriented x3 - Psychiatric Exam Psychiatric exam: Normal Affect, Normal Mood - Skin Skin Exam: Dry, Intact, Normal Color, Warm Assessment and Plan - Assessment and Plan (Free Text) Assessment: Patient is a 52yo male with PMHx significant for decompensated EtOH cirrhosis s/ p TIPS (2014), severe esophagitis and recently noted esophageal ulcer (September), EtOH withdrawal seizures who presented to the ED with complaint of hematemesis and hematochezia Ascending/cecal colitis Grm Neg staph bacteremia, contaminate? Hematemesis/hematochezia-resolved HE grade 2 (improving) Anemia likely 2/2 above; r/o PUD, malignancy, varicies, esophageal ulcer Hx Decompensated EtOH cirrhosis s/p TIPS, MELD 18 on admission, DF:45 Hx Esophageal ulcer clean based Suspected gastroparesis EtOH abuse/intoxication Hx of large internal/external hemorrhoids Plan: -Continue supportive care -No active GI bleeding; no further hematemesis or melena since admission -transfuse to keep hgb > 7 -Monitor H/H -Remains hemodynamically stable -diet as per speech -continue lactulose TID until x 2 BM -continue zosyn and Vancomycin as per ID -will sign off D/W Dr. Bradley <Gage Bradley - Last Filed: 12/29/17 13:51> Objective - Vital Signs/Intake and Output Vital Signs (last 24 hours): Temp Pulse Resp BP Pulse Ox 97.4 F L 75 20 110/65 100 12/29/17 08:12 12/29/17 08:12 12/29/17 08:12 12/29/17 08:12 12/29/17 08:12 Intake and Output: 12/29/17 12/29/17 06:59 18:59 Intake Total 1700 Balance 1700 - Medications Medications: Current Medications Acetaminophen (Tylenol 650mg/20.3ml Solution Ud) 650 mg NG Q6 PRN PRN Reason: Temperature Last Admin: 12/25/17 21:57 Dose: 650 mg Folic Acid (Folic Acid) 1 mg PO DAILY [facility] Last Admin: 12/29/17 08:41 Dose: 1 mg Vancomycin HCl 1 gm/ Sodium (Chloride) 250 mls @ 166.667 mls/hr IVPB Q12 JANNIE PRN Reason: Protocol Last Admin: 12/29/17 09:05 Dose: 166.667 mls/hr Piperacillin Sod/Tazobactam (Sod 4.5 gm/ Sodium Chloride) 100 mls @ 100 mls/hr IVPB Q8 JANNIE PRN Reason: Protocol Last Admin: 12/29/17 09:04 Dose: 100 mls/hr Lactulose (Enulose) 20 gm PO TID [facility] Last Admin: 12/29/17 13:31 Dose: 20 gm Levetiracetam (Keppra) 500 mg PO BID [facility] Last Admin: 12/29/17 08:42 Dose: 500 mg Lidocaine (Lidoderm) 1 ea TD DAILY PRN PRN Reason: Pain, moderate (4-7) Last Admin: 12/29/17 11:12 Dose: 1 ea Nicotine (Nicoderm Cq) 1 patch TD DAILY [facility] Last Admin: 12/29/17 08:42 Dose: 1 patch Ondansetron HCl (Zofran Inj) 4 mg IVP Q6 PRN PRN Reason: Nausea/Vomiting Pantoprazole Sodium (Protonix Ec Tab) 40 mg PO DAILY [facility] Last Admin: 12/29/17 08:42 Dose: 40 mg Thiamine HCl (Vitamin B1 Tab) 100 mg PO DAILY [facility] Last Admin: 12/29/17 08:42 Dose: 100 mg Tobramycin Sulfate (Tobrex 0.3% Ophth Soln) 2 drop OU TID [facility] Last Admin: 12/29/17 13:32 Dose: 2 drop - Labs Labs: 12/29/17 06:55 12/29/17 06:55 PT 20.8 Seconds (9.8-13.1) H 12/28/17 07:52 INR 1.9 (0.9-1.2) H 12/28/17 07:52 Attending/Attestation - Attestation I have personally seen and examined this patient.: Yes I have fully participated in the care of the patient.: Yes I have reviewed all pertinent clinical information, including history, physical exam and plan: Yes Notes (Text): 12/29/17 13:48 This is a 52 yo male with PMHx significant for decompensated EtOH cirrhosis s/p TIPS (2014), severe esophagitis and recently noted esophageal ulcer (October 15, 2017), EtOH withdrawal seizures who presented to the ED with complaint of hematemesis and hematochezia now resolved. GI reconsulted for grade 3 Hepatic encephalopathy which has resolved on lactulose. Patient more awake today and oriented x 2. Blood cultures are growing gram positive cocci. CTAP shows cecal colitis. Agree with antibiotics. HE worsened due to infection. Lactulose as tolerated. Diet low salt as tolerated. Consider ECHO and TIPS infection if no other bacteremia source found. Aspiration precautions. Lactulose enemas. Patient with alcohol abuse inspite of cirrhosis hence not a transplant candidate. Rest of plan as per ID and primary team. patient to follow in [facility]. Thank you for letting us follow in the care of your patient
[2017-12-29] MEDS: Lidocaine 5% Patch TD PRN (11:12)
--- NOTE | 2017-12-29 12:19 | CP.PCM.PN ---
Subjective - Date & Time of Evaluation Date of Evaluation: 12/29/17 Time of Evaluation: 12:11 - Subjective Subjective: 52 yr old male with epilepsy and now with hepatic encephalopathy and a right sided hygroma. EEG is postponed due to patients mental status but will check to see if it was done. patient is the same neurologically. no new complaints. on exam: mildly encephalopathic, PERRL, Cn 2-12 normal. speech fluent. Rest of neuro exam unchanged. Objective - Vital Signs/Intake and Output Vital Signs (last 24 hours): Temp Pulse Resp BP Pulse Ox 97.4 F L 75 20 110/65 100 12/29/17 08:12 12/29/17 08:12 12/29/17 08:12 12/29/17 08:12 12/29/17 08:12 Intake and Output: 12/29/17 12/29/17 06:59 18:59 Intake Total 1700 Balance 1700 - Medications Medications: Current Medications Acetaminophen (Tylenol 650mg/20.3ml Solution Ud) 650 mg NG Q6 PRN PRN Reason: Temperature Last Admin: 12/25/17 21:57 Dose: 650 mg Folic Acid (Folic Acid) 1 mg PO DAILY [facility] Last Admin: 12/29/17 08:41 Dose: 1 mg Vancomycin HCl 1 gm/ Sodium (Chloride) 250 mls @ 166.667 mls/hr IVPB Q12 JANNIE PRN Reason: Protocol Last Admin: 12/29/17 09:05 Dose: 166.667 mls/hr Piperacillin Sod/Tazobactam (Sod 4.5 gm/ Sodium Chloride) 100 mls @ 100 mls/hr IVPB Q8 JANNIE PRN Reason: Protocol Last Admin: 12/29/17 09:04 Dose: 100 mls/hr Lactulose (Enulose) 20 gm PO TID [facility] Last Admin: 12/29/17 08:41 Dose: 20 gm Levetiracetam (Keppra) 500 mg PO BID [facility] Last Admin: 12/29/17 08:42 Dose: 500 mg Lidocaine (Lidoderm) 1 ea TD DAILY PRN PRN Reason: Pain, moderate (4-7) Last Admin: 12/29/17 11:12 Dose: 1 ea Nicotine (Nicoderm Cq) 1 patch TD DAILY [facility] Last Admin: 12/29/17 08:42 Dose: 1 patch Ondansetron HCl (Zofran Inj) 4 mg IVP Q6 PRN PRN Reason: Nausea/Vomiting Pantoprazole Sodium (Protonix Ec Tab) 40 mg PO DAILY [facility] Last Admin: 12/29/17 08:42 Dose: 40 mg Thiamine HCl (Vitamin B1 Tab) 100 mg PO DAILY [facility] Last Admin: 12/29/17 08:42 Dose: 100 mg Tobramycin Sulfate (Tobrex 0.3% Ophth Soln) 2 drop OU TID [facility] Last Admin: 12/29/17 08:41 Dose: 2 drop - Labs Labs: 12/29/17 06:55 12/29/17 06:55 PT 20.8 Seconds (9.8-13.1) H 12/28/17 07:52 INR 1.9 (0.9-1.2) H 12/28/17 07:52 Assessment and Plan - Assessment and Plan (Free Text) Assessment: 52 yr old male with hepatic encephalopathy who is now stable, with eeg pending. His platelets are trending downwards but i do not feel that this is secodnary to his chronic keppra use. Recommend continuing it for now.
--- NOTE | 2017-12-29 12:53 | CP.PCM.PN ---
Subjective - Date & Time of Evaluation Date of Evaluation: 12/29/17 Time of Evaluation: 12:48 - Subjective Subjective: Patient seen and examined at bedside. Labs, charts, and nurse notes reviewed. Patient denies abdominal pain, n/v/d/c. Endorses having good appetite. Objective - Vital Signs/Intake and Output Vital Signs (last 24 hours): Temp Pulse Resp BP Pulse Ox 97.4 F L 75 20 110/65 100 12/29/17 08:12 12/29/17 08:12 12/29/17 08:12 12/29/17 08:12 12/29/17 08:12 Intake and Output: 12/29/17 12/29/17 06:59 18:59 Intake Total 1700 Balance 1700 - Medications Medications: Current Medications Acetaminophen (Tylenol 650mg/20.3ml Solution Ud) 650 mg NG Q6 PRN PRN Reason: Temperature Last Admin: 12/25/17 21:57 Dose: 650 mg Folic Acid (Folic Acid) 1 mg PO DAILY [facility] Last Admin: 12/29/17 08:41 Dose: 1 mg Vancomycin HCl 1 gm/ Sodium (Chloride) 250 mls @ 166.667 mls/hr IVPB Q12 JANNIE PRN Reason: Protocol Last Admin: 12/29/17 09:05 Dose: 166.667 mls/hr Piperacillin Sod/Tazobactam (Sod 4.5 gm/ Sodium Chloride) 100 mls @ 100 mls/hr IVPB Q8 JANNIE PRN Reason: Protocol Last Admin: 12/29/17 09:04 Dose: 100 mls/hr Lactulose (Enulose) 20 gm PO TID [facility] Last Admin: 12/29/17 08:41 Dose: 20 gm Levetiracetam (Keppra) 500 mg PO BID [facility] Last Admin: 12/29/17 08:42 Dose: 500 mg Lidocaine (Lidoderm) 1 ea TD DAILY PRN PRN Reason: Pain, moderate (4-7) Last Admin: 12/29/17 11:12 Dose: 1 ea Nicotine (Nicoderm Cq) 1 patch TD DAILY [facility] Last Admin: 12/29/17 08:42 Dose: 1 patch Ondansetron HCl (Zofran Inj) 4 mg IVP Q6 PRN PRN Reason: Nausea/Vomiting Pantoprazole Sodium (Protonix Ec Tab) 40 mg PO DAILY [facility] Last Admin: 12/29/17 08:42 Dose: 40 mg Thiamine HCl (Vitamin B1 Tab) 100 mg PO DAILY [facility] Last Admin: 12/29/17 08:42 Dose: 100 mg Tobramycin Sulfate (Tobrex 0.3% Ophth Soln) 2 drop OU TID [facility] Last Admin: 12/29/17 08:41 Dose: 2 drop - Labs Labs: 12/29/17 06:55 12/29/17 06:55 PT 20.8 Seconds (9.8-13.1) H 12/28/17 07:52 INR 1.9 (0.9-1.2) H 12/28/17 07:52 - Constitutional Appears: Well, No Acute Distress - Eye Exam Eye Exam: Scleral icterus - ENT Exam ENT Exam: Mucous Membranes Moist - Respiratory Exam Respiratory Exam: Clear to Ausculation Bilateral, NORMAL BREATHING PATTERN - Cardiovascular Exam Cardiovascular Exam: REGULAR RHYTHM, RRR, +S1, +S2 - GI/Abdominal Exam GI & Abdominal Exam: Soft, Normal Bowel Sounds. absent: Tenderness - Extremities Exam Extremities Exam: Normal Inspection. absent: Pedal Edema - Neurological Exam Neurological Exam: Alert, Awake, Oriented x3 - Skin Skin Exam: Dry, Intact, Warm Assessment and Plan - Assessment and Plan (Free Text) Assessment: 52 y/o alcoholic male w/ pmh significant for cirrhosis initially admitted for upper GI bleed, and found to have bacteraemia and hepatic encephalopathy Plan: 1) Altered Mental Status -improved, awake/alert/oriented X3 -likely 2/2 hepatic encephalopathy/bactermia -ammonia levels 95 on 12/24, started on Lactulose via NG, now 21 -CT head w/o contrast: left frontal scalp swelling, new left cerebral convexity extra-axial low density collection with questionable areas of acute blood products. Equivocal tiny right frontal extra-axial collection w/ possible acute blood products -neuro consult: likely 2/2 to hepatic encephalopathy, but recommends neurosurgery consult. -Repeat Head CT: no acute changes -EEG results pending -Keppra level pending. D/C librium. -Lactulose titrate up to 2 BM per day -followed by PT: unstable gait 2) Staph Aureus Bacteraemia -12/24/17 blood cultures positive for coagulase neagative staph/staph aureus -repeat cx 7/9/18 is negatives x2 -Urine Cx: probable contamination -Abd/Pelvis CT: possible acute cholecystitis, typhlitis -ID on board -on Vancomycin 1gm IV (day 5) and Zosyn -goal Vanco trough <20, tough 7.1 -echo and TTE Pending -monitor vitals/labs -fever control as ordered 3)Hypokalemia -improved, K+ 3.7 -likely 2/2 to lactulose-induced diarrhea -replenish as needed 4) Upper GI Bleed -resolved -s/p 3 units of PRBC transfusions -10/15/17 Upper GI endoscopy showed 7 mm superficial esophageal ulcer -GI consulted, case discussed w/ GI fellow. EGD not indicated at this time as per GI -Colonoscopy (06/2017) Poor prep, internal/external hemorrhoids -EGD (04/2017) - LA Grade C esophagitis with visible vessel at EGJ s/p clip and injection of epi, portal hypertensive gastropathy -will follow CBC -Zofran 4mg IVP Q6 PRN -protonix 40 mg IV 5) Pancytopenia -chronic -platelet count 28 likely 2/2 to live failure vs. antibiotic induced? -bone marrow suppression 2/2 to etoh abuse/liver failure -Absolute neutrophil count 1125 mm3 -will monitor w/ follow up labs in AM and trend\ -consider heme onc consult 6) Hx of Seizures: -neurology on board, will follow up further recommendations -cont home meds; Keppra 500mg BID -keppra level pending -EEG pending 7) History of ETOH abuse: -alcohol level 64 (12/21/17) -[facility] protocol -folic acid 1mg PO -Thiamine 100mg PO -D/C Librium 50 mg PO Q6 PRN -Clonidine PRN 8)Coagulopathy -s/p Vitamin K 10mg PO; INR 1.9 -secondary to liver dysfunction -patient is hemodynamically stable -SCDs -will monitor 9) Lateral 10th and 11th rib fractures: -nondisplaced -lidocaine patches PRN for pain -s/p 1 gm morphine 10) Diet: -GI/altered hepatic diet 11) DVT prophylaxis: -SCDs 12) Code Status -full code
[2017-12-30] MEDS: Piperacillin/Tazobact 4.5 GM in Sodium Chloride 0.9% 100 ML IVPB SCH (00:35)
[2017-12-30 02:37] VITALS: RESP 20
[2017-12-30 08:55] VITALS: BP 120/66; PULSE 84; TEMP 97.6; O2SAT 96
--- NOTE | 2017-12-30 10:34 | CP.PCM.PN ---
Subjective - Date & Time of Evaluation Date of Evaluation: 12/30/17 Time of Evaluation: 10:27 - Subjective Subjective: Patient is seen and examined at bedside. He is in a pleasant mood and agreeable to go to subacute rehab. No complaints/no acute events overnight. Objective - Vital Signs/Intake and Output Vital Signs (last 24 hours): Temp Pulse Resp BP Pulse Ox 97.6 F 84 20 120/66 96 12/30/17 08:54 12/30/17 08:54 12/30/17 08:54 12/30/17 08:54 12/30/17 08:54 Intake and Output: 12/30/17 12/30/17 06:59 18:59 Intake Total 2100 Balance 2100 - Medications Medications: Current Medications Acetaminophen (Tylenol 650mg/20.3ml Solution Ud) 650 mg NG Q6 PRN PRN Reason: Temperature Last Admin: 12/25/17 21:57 Dose: 650 mg Folic Acid (Folic Acid) 1 mg PO DAILY [facility] Last Admin: 12/29/17 08:41 Dose: 1 mg Vancomycin HCl 1 gm/ Sodium (Chloride) 250 mls @ 166.667 mls/hr IVPB Q12 JANNIE PRN Reason: Protocol Last Admin: 12/29/17 20:40 Dose: 166.667 mls/hr Lactulose (Enulose) 20 gm PO TID [facility] Last Admin: 12/29/17 17:40 Dose: Not Given Levetiracetam (Keppra) 500 mg PO BID [facility] Last Admin: 12/29/17 17:40 Dose: 500 mg Lidocaine (Lidoderm) 1 ea TD DAILY PRN PRN Reason: Pain, moderate (4-7) Last Admin: 12/29/17 11:12 Dose: 1 ea Nicotine (Nicoderm Cq) 1 patch TD DAILY [facility] Last Admin: 12/29/17 08:42 Dose: 1 patch Ondansetron HCl (Zofran Inj) 4 mg IVP Q6 PRN PRN Reason: Nausea/Vomiting Pantoprazole Sodium (Protonix Ec Tab) 40 mg PO DAILY [facility] Last Admin: 12/29/17 08:42 Dose: 40 mg Thiamine HCl (Vitamin B1 Tab) 100 mg PO DAILY [facility] Last Admin: 12/29/17 08:42 Dose: 100 mg Tobramycin Sulfate (Tobrex 0.3% Ophth Soln) 2 drop OU TID [facility] Last Admin: 12/29/17 17:40 Dose: 2 drop - Labs Labs: 12/29/17 06:55 12/29/17 06:55 PT 20.8 Seconds (9.8-13.1) H 12/28/17 07:52 INR 1.9 (0.9-1.2) H 12/28/17 07:52 - Constitutional Appears: Well, No Acute Distress - Eye Exam Eye Exam: Scleral icterus - ENT Exam ENT Exam: Mucous Membranes Moist - Respiratory Exam Respiratory Exam: Clear to Ausculation Bilateral, NORMAL BREATHING PATTERN - Cardiovascular Exam Cardiovascular Exam: REGULAR RHYTHM, RRR, +S1, +S2 - GI/Abdominal Exam GI & Abdominal Exam: Soft, Normal Bowel Sounds. absent: Tenderness - Extremities Exam Extremities Exam: Normal Inspection. absent: Pedal Edema, Tenderness - Neurological Exam Neurological Exam: Alert, Awake, Oriented x3 - Psychiatric Exam Psychiatric exam: Normal Affect - Skin Skin Exam: Dry, Intact, Warm Assessment and Plan - Assessment and Plan (Free Text) Assessment: 52 y/o alcoholic male w/ pmh significant for cirrhosis initially admitted for upper GI bleed, and found to have bacteraemia and hepatic encephalopathy Plan: 1) Altered Mental Status -improved, awake/alert/oriented X3 -likely 2/2 hepatic encephalopathy/bactermia -ammonia levels 95 on 12/24, started on Lactulose via NG, now 21 -CT head w/o contrast: left frontal scalp swelling, new left cerebral convexity extra-axial low density collection with questionable areas of acute blood products. Equivocal tiny right frontal extra-axial collection w/ possible acute blood products -neuro consult: likely 2/2 to hepatic encephalopathy, but recommends neurosurgery consult. -Repeat Head CT: no acute changes -EEG results pending -Keppra level pending. D/C librium. -Lactulose titrate up to 2 BM per day 2) Staph Aureus Bacteraemia w/ sepsis -not present on admission -12/24/17 blood cultures positive for coagulase negative staph/staph aureus -likely 2/2 malfunctioning TIPs vs. typhilitis or cholecystitis (seen on abd/ pelvis CT) -repeat cx 12/27/17 is negatives x2 -Urine Cx: probable contamination -ID on board -on Vancomycin 1gm IV and Zosyn -goal Vanco trough <20, tough 7.1 -echo and TTE Pending -monitor vitals/labs -fever control as ordered 3)Hypokalemia -improved -likely 2/2 to lactulose-induced diarrhea -replenish as needed 4) Upper GI Bleed -resolved -s/p 3 units of PRBC transfusions -10/15/17 Upper GI endoscopy showed 7 mm superficial esophageal ulcer -GI consulted, case discussed w/ GI fellow. EGD not indicated at this time as per GI -Colonoscopy (06/2017) Poor prep, internal/external hemorrhoids -EGD (04/2017) - [place] Grade C esophagitis with visible vessel at EGJ s/p clip and injection of epi, portal hypertensive gastropathy -will follow CBC -Zofran 4mg IVP Q6 PRN -protonix 40 mg IV 5) Pancytopenia -chronic -last platelet count 28 likely 2/2 to live failure vs. antibiotic induced? -bone marrow suppression 2/2 to etoh abuse/liver failure -Absolute neutrophil count 1125 mm3 -will monitor w/ follow up labs in AM and trend\ -consider heme onc consult 6) Hx of Seizures: -neurology on board, will follow up further recommendations -cont home meds; Keppra 500mg BID -keppra level pending -EEG pending -followed by PT: ataxic pattern w/ unsteady gait and requires assistance for mobility and high risk for fall, recommends d/c to subacute rehab 7) History of ETOH abuse: -alcohol level 64 (12/21/17) -[facility] protocol -folic acid 1mg PO -Thiamine 100mg PO -D/C Librium 50 mg PO Q6 PRN -Clonidine PRN 8)Coagulopathy -s/p Vitamin K 10mg PO; INR 1.9 -secondary to liver dysfunction -patient is hemodynamically stable -SCDs -will monitor 9) Lateral 10th and 11th rib fractures: -nondisplaced -lidocaine patches PRN for pain -s/p 1 gm morphine 10) Diet: -GI/altered hepatic diet 11) DVT prophylaxis: -SCDs 12) Code Status -full code
[2017-12-30] MEDS: Pantoprazole 40 mg EC Tab PO SCH (11:04)
[2017-12-30] MEDS: Tobramycin 0.3% OPHT SOLN OU SCH ×2 (11:05→13:20)
[2017-12-30] MEDS: Lidocaine 5% Patch TD PRN (11:05)
--- NOTE | 2017-12-30 19:13 | CARD ---
APPROVED REPORT Date of service: 12/27/2017 EXAM: Two-dimensional and M-mode echocardiogram with Doppler and color Doppler. Other Information Quality : GoodRhythm : NSR INDICATION Infection: 2D DIMENSIONS IVSd0.95 (0.7-1.1cm)LVDd4.78 (3.9-5.9cm) LVOT Diameter2.43 (1.8-2.4cm)PWd0.93 (0.7-1.1cm) IVSs1.29 (0.8-1.2cm)LVDs3.42 (2.5-4.0cm) FS (%) 28.4 %PWs1.26 (0.8-1.2cm) M-Mode DIMENSIONS Left Atrium (MM)4.56 (2.5-4.0cm)IVSd0.94 (0.7-1.1cm) Aortic Root3.15 (2.2-3.7cm)LVDd6.26 (4.0-5.6cm) Aortic Cusp Exc.1.85 (1.5-2.0cm)PWd1.00 (0.7-1.1cm) IVSs1.47 cmFS (%) 39 % LVDs3.79 (2.0-3.8cm)PWs1.24 cm Mitral Valve MV E Zyldhszi16.7cm/sMV DECEL [id number] A Rtgnjkdx17.9cm/s MV [id number]/A ratio2.0MVA (PHT)3.36cm2 TDI Lateral E' Peak V18.38cm/sMedial E' Peak V14.42cm/sE/Lateral E'4.8 E/Medial E'6.2 LEFT VENTRICLE The left ventricle is normal size. There is normal left ventricular wall thickness. The left ventricular function is normal.EF-55-60% There is normal LV segmental wall motion. The left ventricular diastolic function is normal. No left ventricle thrombus noted on this study. There is no ventricular septal defect visualized. There is no left ventricular aneurysm. There is no mass noted in the left ventricle. RIGHT VENTRICLE The right ventricle is normal size. There is normal right ventricular wall thickness. The right ventricular systolic function is normal. ATRIA The left atrium size is normal. The right atrium size is normal. The interatrial septum is intact with no evidence for an atrial septal defect. AORTIC VALVE The aortic valve is normal in structure. No aortic regurgitation is present. There is no aortic valvular stenosis. There is no aortic valvular vegetation. MITRAL VALVE The mitral valve is normal in structure. There is no evidence of mitral valve prolapse. There is no mitral valve stenosis. Mitral regurgitation is trace. TRICUSPID VALVE The tricuspid valve is normal in structure. There is trace tricuspid regurgitation. There is no tricuspid valve prolapse or vegetation. There is no tricuspid valve stenosis. PULMONIC VALVE The pulmonary valve is normal in structure. There is no pulmonic valvular regurgitation. There is no pulmonic valvular stenosis. GREAT VESSELS The aortic root is normal in size. The ascending aorta is normal in size. The pulmonary artery is normal. The IVC is normal in size and collapses >50% with inspiration. PERICARDIAL EFFUSION The pericardium appears normal. There is no pleural effusion. <Conclusion> Normal Chamber Size. Ef-55-60% Trace MR/TR No Vegetation or thrombus noted.
--- NOTE | 2017-12-31 15:57 | CP.PCM.DIS ---
Provider - Provider Date of Admission: 12/22/17 15:21 Attending physician: Chanelle Rowe MD Time Spent in preparation of Discharge (in minutes): 35 Diagnosis - Discharge Diagnosis (1) Alcohol abuse with intoxication Status: Acute (2) Encephalopathy acute Status: Acute (3) Esophagitis Status: Acute (4) Gastrointestinal hemorrhage Status: Acute (5) Hepatic encephalopathy Status: Acute Priority: High (6) Seizure disorder Status: Acute (7) Seizure Status: Chronic Hospital Course - Lab Results Lab Results: Micro Results 12/27/17 11:20 Blood Blood Culture - Preliminary NO GROWTH AFTER 4 DAYS 12/27/17 11:20 Blood Blood Culture - Preliminary NO GROWTH AFTER 4 DAYS 12/24/17 17:53 Blood S.aureus & Coag-Neg Staph PNA FISH - Final 12/24/17 17:53 Blood Blood Culture - Final Coagulase Neg Staphylococcus 12/24/17 17:53 Blood Gram Stain - Final 12/25/17 10:00 Naris MRSA Culture (Admit) - Final MRSA NOT DETECTED 12/24/17 18:00 Blood Blood Culture - Final Coagulase Neg Staphylococcus 12/24/17 18:00 Blood Gram Stain - Final 12/25/17 04:04 Urine,Clean Catch Urine Culture - Final 50-100,000 CFU/ML. MULTIPLE SPECIES. SUGGEST REPEAT SPECIMEN. 12/25/17 17:48 Urine,Ty Urine Culture - Final No Growth (<1,000 CFU/ML) Most Recent Lab Values WBC 2.2 K/uL (4.8-10.8) L 12/29/17 06:55 RBC 2.51 Mil/uL (4.40-5.90) L 12/29/17 06:55 Hgb 7.7 g/dL (12.0-18.0) L 12/29/17 06:55 Hct 22.6 % (35.0-51.0) L 12/29/17 06:55 MCV 89.8 fl (80.0-94.0) 12/29/17 06:55 MCH 30.5 pg (27.0-31.0) 12/29/17 06:55 MCHC 34.0 g/dL (33.0-37.0) 12/29/17 06:55 RDW 18.4 % (11.5-14.5) H 12/29/17 06:55 Plt Count 55 K/uL (130-400) L D 12/29/17 06:55 MPV 7.6 fl (7.2-11.7) 12/21/17 10:55 Neut % (Auto) 62.5 % (50.0-75.0) 12/21/17 10:55 Lymph % (Auto) 19.6 % (20.0-40.0) L 12/21/17 10:55 Sebastian % (Auto) 14.9 % (0.0-10.0) H 12/21/17 10:55 Eos % (Auto) 1.7 % (0.0-4.0) 12/21/17 10:55 Baso % (Auto) 1.3 % (0.0-2.0) 12/21/17 10:55 Neut # (Auto) 2.6 K/uL (1.8-7.0) 12/21/17 10:55 Lymph # (Auto) 0.8 K/uL (1.0-4.3) L 12/21/17 10:55 Sebastian # (Auto) 0.6 K/uL (0.0-0.8) 12/21/17 10:55 Eos # (Auto) 0.1 K/uL (0.0-0.7) 12/21/17 10:55 Baso # (Auto) 0.1 K/uL (0.0-0.2) 12/21/17 10:55 PT 20.8 Seconds (9.8-13.1) H 12/28/17 07:52 INR 1.9 (0.9-1.2) H 12/28/17 07:52 pCO2 23 mm/Hg (35-45) L 12/25/17 14:17 pO2 72 mm/Hg (80-100) L 12/25/17 14:17 HCO3 23.6 mmol/L (21-28) 12/25/17 14:17 ABG pH 7.53 (7.35-7.45) H 12/25/17 14:17 ABG Total CO2 19.9 mmol/L (22-28) L 12/25/17 14:17 ABG O2 Saturation 99.3 % (95-98) H 12/25/17 14:17 ABG Base Excess -1.7 mmol/L (-2.0-3.0) 12/25/17 14:17 Jose Test Yes 12/25/17 14:17 ABG Potassium 3.4 mmol/L (3.6-5.2) L 12/25/17 14:17 A-a O2 Difference 49.0 mm/Hg 12/25/17 14:17 Sodium 136.0 mmol/L (132-148) 12/25/17 14:17 Chloride 113.0 mmol/L (98-107) H 12/25/17 14:17 Glucose 124 mg/dL (75-110) H 12/25/17 14:17 Lactate 1.0 mmol/L (0.7-2.1) 12/25/17 14:17 FiO2 21.0 % 12/25/17 14:17 Blood Gas Comments Room air 12/25/17 14:17 Crit Value Read Back N 12/25/17 14:17 Sodium 134 mmol/l (132-148) 12/29/17 06:55 Potassium 3.7 MMOL/L (3.6-5.0) 12/29/17 06:55 Chloride 108 mmol/L (98-107) H 12/29/17 06:55 Carbon Dioxide 19 mmol/L (22-30) L 12/29/17 06:55 Anion Gap 11 (10-20) 12/29/17 06:55 BUN 10 mg/dl (9-20) 12/29/17 06:55 Creatinine 0.5 mg/dl (0.8-1.5) L 12/29/17 06:55 Est GFR ( Amer) > 60 12/29/17 06:55 Est GFR (Non-Af Amer) > 60 12/29/17 06:55 Random Glucose 92 mg/dL (75-110) 12/29/17 06:55 Calcium 7.4 mg/dL (8.4-10.2) L 12/29/17 06:55 Phosphorus 3.0 mg/dl (2.5-4.5) 12/27/17 05:12 Magnesium 1.6 MG/DL (1.6-2.3) 12/27/17 05:12 Total Bilirubin 2.3 mg/dl (0.2-1.3) H 12/29/17 06:55 AST 77 U/L (17-59) H 12/29/17 06:55 ALT 43 U/L (21-72) 12/29/17 06:55 Alkaline Phosphatase 129 U/L (38-126) H 12/29/17 06:55 Ammonia 21 umo/L (16-60) D 12/27/17 05:12 Total Protein 5.8 G/DL (6.3-8.2) L 12/29/17 06:55 Albumin 2.2 g/dL (3.5-5.0) L 12/29/17 06:55 Globulin 3.7 gm/dL (2.2-3.9) 12/29/17 06:55 Albumin/Globulin Ratio 0.6 (1.0-2.1) L 12/29/17 06:55 Lipase 264 U/L (23-300) 12/21/17 10:55 Arterial Blood Potassium 3.4 mmol/L (3.6-5.2) L 12/25/17 14:17 Urine Color [place] (YELLOW) 12/25/17 17:46 Urine Clarity Slighty-cloudy (Clear) 12/25/17 17:46 Urine pH 6.0 (5.0-8.0) 12/25/17 17:46 Ur Specific [place] 1.024 (1.003-1.030) 12/25/17 17:46 Urine Protein Negative mg/dL (NEGATIVE) 12/25/17 17:46 Urine Glucose (UA) Neg mg/dL (Normal) 12/25/17 17:46 Urine Ketones Negative mg/dL (NEGATIVE) 12/25/17 17:46 Urine Blood Small (NEGATIVE) 12/25/17 17:46 Urine Nitrate Negative (NEGATIVE) 12/25/17 17:46 Urine Bilirubin Negative (NEGATIVE) 12/25/17 17:46 Urine Urobilinogen 4.0 mg/dL (0.2-1.0) 12/25/17 17:46 Ur Leukocyte Esterase Neg [place]/uL (Negative) 12/25/17 17:46 Urine RBC (Auto) 6 /hpf (0-3) H 12/25/17 17:46 Urine Microscopic WBC 4 /hpf (0-5) 12/25/17 17:46 Ur Squamous Epith Cells < 1 /hpf (0-5) 12/25/17 17:46 Urine Bacteria Rare (<OCC) 12/25/17 04:04 Hyaline Casts 0-2 /hpf (0-2) 12/25/17 04:04 Stool Occult Blood Positive (NEGATIVE) H 12/21/17 15:00 Vancomycin Trough 7.1 ug/mL (5.0-10.0) 12/29/17 09:02 Levetiracetam 7.3 mcg/mL 12/25/17 18:15 Alcohol, Quantitative 64 mg/dl (0-10) H 12/21/17 10:55 Blood Type O POSITIVE 12/23/17 13:55 Antibody Screen Negative 12/23/17 13:55 Crossmatch See Detail 12/23/17 13:55 BBK History Checked Patient has bt 12/23/17 13:55 - Hospital Course Hospital Course: 52 y/o male w/ hx of seizures and cirrhosis secondary to alcohol abuse s/p TIPS presented to ER on 12/21 w/ c/o bloody vomitus x5 and unwitnessed seizures. Blood alcohol level was elevated, FOBT+, hgb 7. Xray showed non-displaced lateral 10th and 11th rib fractures. GI r/o active bleed. He was transfused 2 units of PRBC, continued on Keppra 500mg BID and given Lidoderm for fractured ribs. He began to have AMS, tachycardia, fever 3 days later, and found to have staph aureus bactermia w/ sepsis 2/2 tephilitis and hyperammonemia. Head CT showed small subdural hematoma, neuro determined too small to cause AMS. He was started on lactulose and IV zosyn and vancomycin. He returned to baseline mental status, echo was negative for vegitations, repeat cultures were negative. He was recommended to go to subacute rehab but signed out AMA on . Discharge meds: Keppra 500mg BID Vitamin B1 Folic Acid - Date & Time of H&P Date of H&P: 12/21/17 Time of H&P: 14:47 Discharge Exam - Head Exam Head Exam: ATRAUMATIC, NORMOCEPHALIC - Eye Exam Eye Exam: Scleral icterus - ENT Exam ENT Exam: Mucous Membranes Moist - Respiratory Exam Respiratory Exam: Clear to PA & Lateral, NORMAL BREATHING PATTERN - Cardiovascular Exam Cardiovascular Exam: REGULAR RHYTHM, +S1, +S2 - GI/Abdominal Exam GI & Abdominal Exam: Normal Bowel Sounds - Neurological Exam Neurological exam: Abnormal Gait, Alert, Oriented x3 - Psychiatric Exam Psychiatric exam: Normal Mood - Skin Skin Exam: Dry, Intact Discharge Plan - Follow Up Plan Condition: STABLE Disposition: AGAINST MEDICAL ADVICE Instructions: Ferrous Sulfate, Metformin
== END 2017-12-30 14:05 | disposition left against medical advice (07) | DRG 552 ==
LOC: H.ER 09:53 → H.ERHOLD 14:14 → H.TEL 15:58 → OBSVTOIN 12-22 15:21 → H.ICU/CCU 12-25 11:52 → H.MEDSURG1 12-27 17:27
PROVIDERS: ADMIT Family Medicine Geriatric Medicine; ATTEND Family Medicine Geriatric Medicine
PROC: 30233N1 Transfusion of Nonautologous Red Blood Cells into Peripheral Vein, Percutaneous Approach (ICD-10-PCS; principal; 2017-12-22)
DX: K92.0 Hematemesis (principal); K72.90 Hepatic failure, unspecified without coma; I62.03 Nontraumatic chronic subdural hemorrhage; A41.1 Sepsis due to other specified staphylococcus; D61.818 Other pancytopenia; D68.4 Acquired coagulation factor deficiency; K70.30 Alcoholic cirrhosis of liver without ascites; E87.6 Hypokalemia; S22.49XA Multiple fractures of ribs, unspecified side, initial encounter for closed fracture; G89.29 Other chronic pain; Z91.14 Patient's other noncompliance with medication regimen; Z91.19 Patient's noncompliance with other medical treatment and regimen; Z86.718 Personal history of other venous thrombosis and embolism; F17.210 Nicotine dependence, cigarettes, uncomplicated; K76.6 Portal hypertension; K31.89 Other diseases of stomach and duodenum; K29.70 Gastritis, unspecified, without bleeding; K20.9 Esophagitis, unspecified; K37 Unspecified appendicitis; G40.909 Epilepsy, unspecified, not intractable, without status epilepticus; F41.9 Anxiety disorder, unspecified; Z88.6 Allergy status to analgesic agent; K52.9 Noninfective gastroenteritis and colitis, unspecified; W19.XXXA Unspecified fall, initial encounter; F10.129 Alcohol abuse with intoxication, unspecified; Y90.3 Blood alcohol level of 60-79 mg/100 ml; E72.20 Disorder of urea cycle metabolism, unspecified; K80.20 Calculus of gallbladder without cholecystitis without obstruction; D50.0 Iron deficiency anemia secondary to blood loss (chronic)

== ENCOUNTER 2017-12-30 15:52 | Observation (INO) | payer MEDICAID ==
[2017-12-30 15:54] VITALS: BMI 23.7
--- NOTE | 2017-12-30 16:32 | ED PDOC ---
Syncope/Near Syncope/Dizziness Time Seen by Provider: 12/30/17 16:13 Chief Complaint (Nursing): Syncope History Per: Other Additional Complaint(s): Pt recently admitted for GI bleed and hepatic encephalopathy. Found to be bacteremic with staph. Was supposed to have PICC line and placement in rehab for prolonged antibiotics. Signed out AMA earlier today. Returns now for weakness and dizziness. denies chest pain or palpitations Past Medical History Vital Signs: Last Vital Signs Temp 99.3 F 12/30/17 15:57 Pulse 107 H 12/30/17 15:57 Resp 16 12/30/17 15:57 BP 115/53 L 12/30/17 15:57 Pulse Ox 96 12/30/17 15:57 - Medical History PMH: Anemia, Anxiety, Back Problems (herniated disc), Deep Vein Thrombosis, Fractures (rib fx, left shoulder, Left hand 5th digit, Humerus fracture), Gastritis, Seizures, Chronic Pain (left shoulder) Denies: CHF, HIV, Hypercholesterolemia, Chronic Kidney Disease, Sexually Transmitted Disease - Surgical History Surgical History: Endoscopy - Family History Family History: States: Unknown Family Hx - Immunization History Hx Tetanus Toxoid Vaccination: Yes Hx Influenza Vaccination: Yes Hx Pneumococcal Vaccination: Yes - Home Medications Home Medications: Ambulatory Orders Medication Instructions Recorded levETIRAcetam [Keppra] 500 mg PO Q12H 10/25/17 Folic Acid 1 mg PO DAILY #30 tab 11/25/17 Thiamine [Vitamin B1 Tab] 100 mg PO DAILY #30 tab 11/25/17 Omeprazole [Omeprazole] 20 mg PO BID 12/21/17 - Allergies Allergies/Adverse Reactions: Allergies Allergy/AdvReac Type Severity Reaction Status Date / Time aspirin Allergy NAUSEA Verified 12/30/17 15:57 ibuprofen [From Motrin] Allergy NAUSEA Verified 12/30/17 15:57 naproxen Allergy RASH Verified 12/30/17 15:57 NSAIDS (Non-Steroidal Allergy NAUSEA Verified 12/30/17 15:57 Anti-Inflamma Review of Systems ROS Statement: Except As Marked, All Systems Reviewed And Found Negative Constitutional: Positive for: Weakness Physical Exam - Reviewed Nursing Documentation Reviewed: Yes Vital Signs Reviewed: Yes - Physical Exam Appears: Positive for: Non-toxic, No Acute Distress Head Exam: Positive for: ATRAUMATIC, NORMAL INSPECTION, NORMOCEPHALIC Skin: Positive for: Normal Color, Warm, DRY Eye Exam: Positive for: EOMI, Normal appearance, PERRL ENT: Positive for: Normal ENT Inspection Neck: Positive for: Normal, Painless ROM Cardiovascular/Chest: Positive for: Regular Rate, Rhythm Respiratory: Positive for: CNT, Normal Breath Sounds Gastrointestinal/Abdominal: Positive for: Normal Exam, Soft Back: Positive for: Normal Inspection Extremity: Positive for: Normal ROM Neurologic/Psych: Positive for: Alert, Oriented - ECG O2 Sat by Pulse Oximetry: 96 Disposition - Clinical Impression Clinical Impression: Syncope - Patient ED Disposition Is Patient to be Admitted: Yes - Disposition Disposition Time: 16:32 Condition: FAIR - Pt Status Changed To: Hospital Disposition Of: Inpatient - Admit Certification Admit to Inpatient:: After my assessment, the patient will require hospitalization for at least two midnights. This is because of the severity of symptoms shown, intensity of services needed, and/or the medical risk in this patient being treated as an outpatient. - POA Present On Arrival: None
[2017-12-30] MEDS ORDERED: Sodium Chloride 0.9% 1,000 ML IV STA (16:33)
--- NOTE | 2017-12-30 16:52 | CP.PCM.HP ---
History of Present Illness - History of Present Illness History of Present Illness: "I was walking to [employer] to get food and I had a seizure and fell in the park." 52 y/o male w/ hx of seizures and cirrhosis secondary to alcohol abuse s/p TIPS who presented to the ER today 12/30 after having a seizure. He was admitted to [facility] on (12/21) w/ upper GI bleed, and was found to have hepatic encephalopathy and staph aures bacteramiea. He was on IV antibiotics, but left the hospital AMA earlier today. He denies headaches, dizziness, visual changes. He denies etoh use. PMHx: etoh use disorder, liver cirrhosis, esophageal ulcers Surgical hx: TIPs in 2015 PHos hx: multiple ED visits, etoh abuse, unwitnessed seizures and rib fracture Social hx: 3 cigarettes a day, 1.5 ppd previously, etoh denies abuse but level is always elevated Family hx: father CA, mother smoker and of lung cancer, sister diagnosed with colon cancer Home Meds: Keppra 500mg BID Allergies: asprin, ibuprofen, naproxen, NSAIDs (nausea for all of them) Next of Kin: SisterMissy Code status: full code ED Course: VS: wnl Labs: ammonia, blood alcohol levels, cbc, cmp, admit to med surg Meds: NaCl 1L Present on Admission - Present on Admission Any Indicators Present on Admission: No History of DVT/PE: No History of Uncontrolled Diabetes: No Urinary Catheter: No Decubitus Ulcer Present: No Review of Systems - Constitutional Constitutional: Frequent Falls. absent: Excessive Sweating, Fatigue, Fever - EENT Eyes: absent: Blurred Vision, Change in Vision, Diplopia, Floaters Ears: absent: Decreased Hearing - Cardiovascular Cardiovascular: absent: Chest Pain, Diaphoresis - Respiratory Respiratory: absent: Cough, Dyspnea, Excessive Mucous Production - Gastrointestinal Gastrointestinal: absent: Abdominal Pain, Diarrhea, Hematemesis, Nausea, Vomiting - Genitourinary Genitourinary: absent: Difficulty Urinating, Dysuria - Musculoskeletal Musculoskeletal: Abnormal Gait. absent: Numbness - Neurological Neurological: Abnormal Gait, Disequilibrium. absent: Abnormal Hearing, Confusion, Headaches - Psychiatric Psychiatric: absent: Change in Appetite, Hallucinations - Hematologic/Lymphatic Hematologic: absent: Easy Bleeding, Easy Bruising Past Patient History - Infectious Disease Hx of Infectious Diseases: None - Tetanus Immunizations Tetanus Immunization: Unknown - Past Medical History & Family History Past Medical History?: Yes - Past Social History Smoking Status: Light Smoker < 10 Cigarettes Daily - CARDIAC Hx Congestive Heart Failure: No Hx Hypercholesterolemia: No - NEUROLOGICAL Hx Seizures: Yes - HEENT Hx HEENT Problems: No - RENAL Hx Chronic Kidney Disease: No - ENDOCRINE/METABOLIC Hx Endocrine Disorders: No - HEMATOLOGICAL/ONCOLOGICAL Hx Anemia: Yes Hx Human Immunodeficiency Virus (HIV): No - INTEGUMENTARY Hx Dermatological Problems: No - MUSCULOSKELETAL/RHEUMATOLOGICAL Hx Fractures: Yes (rib fx, left shoulder, Left hand 5th digit, Humerus fracture) - GASTROINTESTINAL Hx Gastritis: Yes - GENITOURINARY/GYNECOLOGICAL Hx Sexually Transmitted Disorders: No - PSYCHIATRIC Hx Anxiety: Yes - SURGICAL HISTORY Hx Surgeries: Yes Other/Comment: "LEFT FINGER SURGERY" - ANESTHESIA Hx Anesthesia: Yes Hx Anesthesia Reactions: No Meds Allergies/Adverse Reactions: Allergies Allergy/AdvReac Type Severity Reaction Status Date / Time aspirin Allergy NAUSEA Verified 12/30/17 15:57 ibuprofen [From Motrin] Allergy NAUSEA Verified 12/30/17 15:57 naproxen Allergy RASH Verified 12/30/17 15:57 NSAIDS (Non-Steroidal Allergy NAUSEA Verified 12/30/17 15:57 Anti-Inflamma Physical Exam - Constitutional Appears: No Acute Distress, Unkempt, Older Than Stated Age, Chronically Ill - Head Exam Head Exam: ATRAUMATIC, NORMAL INSPECTION, NORMOCEPHALIC Additional comments: no lacerations or bruises. no tenderness to palpation - Eye Exam Eye Exam: Scleral icterus - ENT Exam ENT Exam: Mucous Membranes Moist - Neck Exam Neck exam: Positive for: Normal Inspection - Respiratory Exam Respiratory Exam: Clear to Auscultation Bilateral, NORMAL BREATHING PATTERN - Cardiovascular Exam Cardiovascular Exam: REGULAR RHYTHM, RRR, +S1, +S2 - GI/Abdominal Exam GI & Abdominal Exam: Normal Bowel Sounds, Soft. absent: Distended, Tenderness - Extremities Exam Extremities exam: Positive for: normal inspection. Negative for: pedal edema - Back Exam Back exam: absent: paraspinal tenderness, vertebral tenderness - Neurological Exam Neurological exam: Abnormal Gait, Alert, Oriented x3 - Skin Skin Exam: Dry, Intact, Warm Results - Vital Signs Recent Vital Signs: Last Vital Signs Temp 99.3 F 12/30/17 15:57 Pulse 107 H 12/30/17 15:57 Resp 16 12/30/17 15:57 BP 115/53 L 12/30/17 15:57 Pulse Ox 96 12/30/17 16:33 - Labs Result Diagrams: 12/30/17 16:51 Assessment & Plan - Assessment and Plan (Free Text) Assessment: 52 y/o alcoholic male w/ pmh significant for cirrhosis initially admitted for upper GI bleed, and found to have bacteraemia and hepatic encephalopathy, signed out AMA, came back a few hours later after unwitnessed seizure. Plan: 1) Altered Mental Status -patient came back to ER intoxicated -awake, alert, oriented x3 -hepatic encephalopathy/bactermia -ammonia level pending -blood alcohol 70 -12/25/17 CT head w/o contrast: left frontal scalp swelling, new left cerebral convexity extra-axial low density collection with questionable areas of acute blood products. Equivocal tiny right frontal extra-axial collection w/ possible acute blood products -neuro consult: likely 2/2 to hepatic encephalopathy, but recommends neurosurgery consult. -12/27/[address]: no acute changes -EEG results pending -Lactulose titrate up to 2 BM per day 2) Staph Aureus Bacteraemia w/ sepsis -not present on admission -12/24/17 blood cultures positive for coagulase negative staph/staph aureus -likely 2/2 malfunctioning TIPs vs. typhilitis or cholecystitis (seen on abd/ pelvis CT) -repeat cx 12/27/17 is negatives x2 -Urine Cx: probable contamination -ID on board -Vancomycin 1gm IV and Zosyn -goal Vanco trough <20, tough 7.1 -echo and TTE Pending -monitor vitals/labs 3)Hypokalemia -improved -likely 2/2 to lactulose-induced diarrhea -replenish as needed 4) Upper GI Bleed -hgb 7.0 today -s/p 3 units of PRBC transfusions -10/15/17 Upper GI endoscopy showed 7 mm superficial esophageal ulcer -GI consulted, case discussed w/ GI fellow. EGD not indicated at this time as per GI -Colonoscopy (06/2017) Poor prep, internal/external hemorrhoids -EGD (04/2017) - LA Grade C esophagitis with visible vessel at EGJ s/p clip and injection of epi, portal hypertensive gastropathy -will follow CBC -protonix 40 mg IV 5) Pancytopenia -chronic -last platelet count 28 likely 2/2 to live failure vs. antibiotic induced? -bone marrow suppression 2/2 to etoh abuse/liver failure -Absolute neutrophil count 1125 mm3 -will monitor w/ follow up labs in AM and trend\\ -consider heme onc consult 6) Hx of Seizures: -eeg pending -cont home meds; Keppra 500mg BID -followed by PT: ataxic pattern w/ unsteady gait and requires assistance for mobility and high risk for fall, recommends d/c to subacute rehab 7) History of ETOH abuse: -alcohol level 64 (12/21/17) -[facility] protocol -folic acid 1mg PO -Thiamine 100mg PO -D/C Librium 50 mg PO Q6 PRN -Clonidine PRN 8)Coagulopathy -s/p Vitamin K 10mg PO; INR 1.9 -secondary to liver dysfunction -patient is hemodynamically stable -SCDs -will monitor 9) Lateral 10th and 11th rib fractures: -nondisplaced -lidocaine patches PRN for pain -s/p 1 gm morphine 10) Diet: -GI/altered hepatic diet 11) DVT prophylaxis: -SCDs 12) Code Status -full code - Date & Time Date: 12/30/17 Time: 17:05
[2017-12-30 16:57] LABS: BASO % 0.5 % (0.0-2.0); EOS # 0.1 K/uL (0.0-0.7); EOS % 2.7 % (0.0-4.0); LYMPH # 0.5 K/uL (1.0-4.3); LYMPH % 21.1 % (20.0-40.0); MEAN CELL VOLUME 89.1 fl (80.0-94.0); MEAN CORPUSCULAR HEMOGLOBIN 29.7 pg (27.0-31.0); MEAN CORPUSCULAR HGB CONC 33.4 g/dL (33.0-37.0); MEAN PLATELET VOLUME 7.8 fl (7.2-11.7); MONO # 0.4 K/uL (0.0-0.8); MONO % 18.4 % (0.0-10.0); NEUT # 1.4 K/uL (1.8-7.0); NEUT % 57.3 % (50.0-75.0); NRBC % 0.4 % (0.0-0.0); RBC 2.35 Mil/uL (4.40-5.90); RED CELL DISTRIBUTION WIDTH 18.5 % (11.5-14.5); WHITE BLOOD COUNT 2.4 K/uL (4.8-10.8)
[2017-12-30 17:15] LABS: ALB/GLOB RATIO 0.6 (1.0-2.1); ALBUMIN 2.4 g/dL (3.5-5.0); ALT/SGPT 46 U/L (21-72); AST/SGOT 78 U/L (17-59); BLOOD UREA NITROGEN 11 mg/dl (9-20); CALCIUM 7.8 mg/dL (8.4-10.2); GFR AFRICAN-AMERICAN > 60; GFR NON-AFRICAN AMERICAN > 60
[2017-12-30] MEDS: Piperacillin/Tazobact 4.5 GM in Sodium Chloride 0.9% 100 ML IVPB SCH (18:11)
[2017-12-31] MEDS: Piperacillin/Tazobact 4.5 GM in Sodium Chloride 0.9% 100 ML IVPB SCH (01:00)
[2017-12-31 06:59] LABS: BASO % 1.2 % (0.0-2.0); EOS # 0.1 K/uL (0.0-0.7); EOS % 3.3 % (0.0-4.0); HEMOGLOBIN 8.4 g/dL (12.0-18.0); LYMPH # 0.6 K/uL (1.0-4.3); LYMPH % 18.9 % (20.0-40.0); MEAN CELL VOLUME 88.4 fl (80.0-94.0); MEAN CORPUSCULAR HEMOGLOBIN 29.4 pg (27.0-31.0); MEAN CORPUSCULAR HGB CONC 33.3 g/dL (33.0-37.0); MEAN PLATELET VOLUME 7.8 fl (7.2-11.7); MONO # 0.6 K/uL (0.0-0.8); MONO % 18.6 % (0.0-10.0); RBC 2.87 Mil/uL (4.40-5.90); WHITE BLOOD COUNT 3.4 K/uL (4.8-10.8)
[2017-12-31] MEDS: Pantoprazole 20 mg EC Tab PO SCH ×2 (08:22→16:02)
[2017-12-31] MEDS: Lidocaine 5% Patch TD SCH ×2 (10:29→16:12)
[2017-12-31 11:19] VITALS: O2SAT 98
--- NOTE | 2017-12-31 15:18 | CP.PCM.DIS ---
Provider - Provider Date of Admission: 12/30/17 16:34 Attending physician: Chanelle Rowe MD Time Spent in preparation of Discharge (in minutes): 35 Diagnosis - Discharge Diagnosis (1) Alcohol intoxication Status: Acute (2) Alcoholism Status: Acute (3) Bacteremia Status: Acute (4) Encephalopathy acute Status: Acute (5) Hepatic encephalopathy Status: Acute Priority: High (6) Seizure Status: Chronic Hospital Course - Lab Results Lab Results: Most Recent Lab Values WBC 3.4 K/uL (4.8-10.8) L 12/31/17 06:56 RBC 2.87 Mil/uL (4.40-5.90) L 12/31/17 06:56 Hgb 8.4 g/dL (12.0-18.0) L 12/31/17 06:56 Hct 25.4 % (35.0-51.0) L 12/31/17 06:56 MCV 88.4 fl (80.0-94.0) 12/31/17 06:56 MCH 29.4 pg (27.0-31.0) 12/31/17 06:56 MCHC 33.3 g/dL (33.0-37.0) 12/31/17 06:56 RDW 18.0 % (11.5-14.5) H 12/31/17 06:56 Plt Count 73 K/uL (130-400) L 12/31/17 06:56 MPV 7.8 fl (7.2-11.7) 12/31/17 06:56 Neut % (Auto) 58.0 % (50.0-75.0) 12/31/17 06:56 Lymph % (Auto) 18.9 % (20.0-40.0) L 12/31/17 06:56 Merrick % (Auto) 18.6 % (0.0-10.0) H 12/31/17 06:56 Eos % (Auto) 3.3 % (0.0-4.0) 12/31/17 06:56 Baso % (Auto) 1.2 % (0.0-2.0) 12/31/17 06:56 Neut # (Auto) 2.0 K/uL (1.8-7.0) 12/31/17 06:56 Lymph # (Auto) 0.6 K/uL (1.0-4.3) L 12/31/17 06:56 Merrick # (Auto) 0.6 K/uL (0.0-0.8) 12/31/17 06:56 Eos # (Auto) 0.1 K/uL (0.0-0.7) 12/31/17 06:56 Baso # (Auto) 0.0 K/uL (0.0-0.2) 12/31/17 06:56 Sodium 136 mmol/l (132-148) 12/30/17 16:51 Potassium 4.0 MMOL/L (3.6-5.0) 12/30/17 16:51 Chloride 109 mmol/L (98-107) H 12/30/17 16:51 Carbon Dioxide 19 mmol/L (22-30) L 12/30/17 16:51 Anion Gap 12 (10-20) 12/30/17 16:51 BUN 11 mg/dl (9-20) 12/30/17 16:51 Creatinine 0.6 mg/dl (0.8-1.5) L 12/30/17 16:51 Est GFR ( Amer) > 60 12/30/17 16:51 Est GFR (Non-Af Amer) > 60 12/30/17 16:51 POC Glucose (mg/dL) 99 mg/dL (65-110) 12/30/17 16:03 Random Glucose 96 mg/dL (75-110) 12/30/17 16:51 Calcium 7.8 mg/dL (8.4-10.2) L 12/30/17 16:51 Total Bilirubin 1.9 mg/dl (0.2-1.3) H 12/30/17 16:51 AST 78 U/L (17-59) H 12/30/17 16:51 ALT 46 U/L (21-72) 12/30/17 16:51 Alkaline Phosphatase 182 U/L (38-126) H D 12/30/17 16:51 Ammonia 61 umo/L (16-60) H D 12/30/17 16:51 Total Protein 6.0 G/DL (6.3-8.2) L 12/30/17 16:51 Albumin 2.4 g/dL (3.5-5.0) L 12/30/17 16:51 Globulin 3.6 gm/dL (2.2-3.9) 12/30/17 16:51 Albumin/Globulin Ratio 0.6 (1.0-2.1) L 12/30/17 16:51 Alcohol, Quantitative 70 mg/dl (0-10) H 12/30/17 16:51 Blood Type O POSITIVE 12/30/17 17:53 Antibody Screen Negative 12/30/17 17:53 Crossmatch See Detail 12/30/17 17:53 BBK History Checked Patient has bt 12/30/17 17:53 - Hospital Course Hospital Course: 52 y/o male w/ hx of seizures and cirrhosis secondary to alcohol abuse s/p TIPS presented to ER on 12/21 w/ c/o bloody vomitus x5 and unwitnessed seizures. Blood alcohol level was elevated, FOBT+, hgb 7. Xray showed non-displaced lateral 10th and 11th rib fractures. GI r/o active bleed. He was transfused 2 units of PRBC, continued on Keppra 500mg BID and given Lidoderm for fractured ribs. He began to have AMS, tachycardia, fever 3 days later, and found to have staph aureus bactermia w/ sepsis 2/2 tephilitis and hyperammonemia. Head CT showed small subdural hematoma, neuro determined too small to cause AMS. He was started on lactulose and IV zosyn and vancomycin. He returned to baseline mental status, echo was negative for vegitations, repeat cultures were negative. He was recommended to go to subacute rehab but signed out AMA on . He came back to the ER a few hours later w/ elevated ammonia and blood alcohol levels, and was admitted and continued on keppra, lactulose, and IV Vanco, and another 1 unite PRBC transfusion. He is being discharged to subacute rehab to continue IV antibiotics. Discharge meds: Keppra 500mg BID Vitamin B1 Folic Acid - Date & Time of H&P Date of H&P: 12/30/17 Time of H&P: 16:49 Discharge Exam - Head Exam Head Exam: ATRAUMATIC, NORMAL INSPECTION, NORMOCEPHALIC - Eye Exam Eye Exam: Scleral icterus - ENT Exam ENT Exam: Mucous Membranes Moist - Respiratory Exam Respiratory Exam: Clear to PA & Lateral, NORMAL BREATHING PATTERN - Cardiovascular Exam Cardiovascular Exam: REGULAR RHYTHM, RRR, +S1, +S2 - GI/Abdominal Exam GI & Abdominal Exam: Normal Bowel Sounds, Soft. absent: Tenderness - Neurological Exam Neurological exam: Alert, Oriented x3 - Psychiatric Exam Psychiatric exam: Normal Affect - Skin Skin Exam: Dry, Normal Color, Warm Discharge Plan - Follow Up Plan Condition: FAIR Disposition: REHAB FACILITY/REHAB UNIT Instructions: Sepsis (DC), Sepsis (GEN), Alcohol Intoxication (DC), Alcohol Use Disorder (DC), Hepatic Encephalopathy (DC)
[2017-12-31 16:36] VITALS: BP 125/68; PULSE 70; RESP 18; TEMP 97.7
--- NOTE | 2018-01-03 11:53 | CARD ---
APPROVED REPORT Date of service: 12/30/2017 EKG Measurement Heart [id number] <Conclusion> Normal sinus rhythm Normal ECG
== END 2017-12-31 17:50 ==
LOC: H.ER 15:52 → H.ERHOLD 16:34 → INTOOBSV 16:34 → H.MEDSURG1 18:26
PROVIDERS: ADMIT Family Medicine Geriatric Medicine; ATTEND Family Medicine Geriatric Medicine
DX: K70.40 Alcoholic hepatic failure without coma (principal); F10.229 Alcohol dependence with intoxication, unspecified; Y90.3 Blood alcohol level of 60-79 mg/100 ml; K70.30 Alcoholic cirrhosis of liver without ascites; D64.9 Anemia, unspecified; R56.9 Unspecified convulsions; F41.9 Anxiety disorder, unspecified; G89.29 Other chronic pain; M25.512 Pain in left shoulder; K29.70 Gastritis, unspecified, without bleeding; F17.210 Nicotine dependence, cigarettes, uncomplicated; Z87.19 Personal history of other diseases of the digestive system; Z88.6 Allergy status to analgesic agent
CPT/HCPCS: 36415; 36430; 80053; 80320; 82140; 82948; 85025; 86850; 86900; 86920; 86921; 86922; 96365; 97162; 99285; G0378; G8978; G8979; J2543; J7030; P9051

== ENCOUNTER 2018-01-17 19:02 | Emergency (ER) | payer MEDICAID ==
[2018-01-17 19:03] VITALS: BMI 23.7
[2018-01-17 20:15] VITALS: TEMP 98.4
--- NOTE | 2018-01-17 20:45 | ED PDOC ---
Lower Extremity Pain/Injury Time Seen by Provider: 01/17/18 20:36 Chief Complaint (Nursing): Lower Extremity Problem/Injury Chief Complaint (Provider): Lower Extremity Problem/Injury History Per: Patient History/Exam Limitations: no limitations Onset/Duration Of Symptoms: Days (x14) Additional Complaint(s): 52 y/o male with a PMHx of alcohol abuse, seizures and GI bleed presents to the ED complaining of right foot pain, onset two weeks ago. Patient is very well known to the provider and ED staff. Patient reports of tingling and pain noted by the toes. Patient also states he was advised by his doctor today to start taking Lactulose and would like a dose here. PMD: Soledad Roca Past Medical History Reviewed: Historical Data, Nursing Documentation, Vital Signs Vital Signs: Last Vital Signs Temp 98.4 F 01/17/18 20:14 Pulse 115 H 01/17/18 20:14 Resp 16 01/17/18 20:14 BP 137/82 01/17/18 20:14 Pulse Ox 96 01/17/18 20:14 - Medical History PMH: Anemia, Anxiety, Back Problems (herniated disc), Deep Vein Thrombosis, Fractures (rib fx, left shoulder, Left hand 5th digit, Humerus fracture), Gastritis, Seizures, Chronic Pain (left shoulder) Denies: CHF, HIV, Hypercholesterolemia, Chronic Kidney Disease, Sexually Transmitted Disease - Surgical History Surgical History: Endoscopy - Family History Family History: States: Unknown Family Hx - Immunization History Hx Tetanus Toxoid Vaccination: Yes Hx Influenza Vaccination: Yes Hx Pneumococcal Vaccination: Yes - Home Medications Home Medications: Ambulatory Orders Medication Instructions Recorded levETIRAcetam [Keppra] 500 mg PO Q12H 10/25/17 Folic Acid 1 mg PO DAILY #30 tab 11/25/17 Thiamine [Vitamin B1 Tab] 100 mg PO DAILY #30 tab 11/25/17 Omeprazole 20 mg PO BID 12/21/17 Butenafine HCl [Lotrimin Ultra] 0.5 gm TP BID #60 cream..g. 01/17/18 - Allergies Allergies/Adverse Reactions: Allergies Allergy/AdvReac Type Severity Reaction Status Date / Time aspirin Allergy NAUSEA Verified 12/30/17 15:57 ibuprofen [From Motrin] Allergy NAUSEA Verified 12/30/17 15:57 naproxen Allergy RASH Verified 12/30/17 15:57 NSAIDS (Non-Steroidal Allergy NAUSEA Verified 12/30/17 15:57 Anti-Inflamma Review of Systems ROS Statement: Except As Marked, All Systems Reviewed And Found Negative Musculoskeletal: Positive for: Foot Pain (right foot pain) Physical Exam - Reviewed Nursing Documentation Reviewed: Yes Vital Signs Reviewed: Yes - Physical Exam Appears: Positive for: No Acute Distress Head Exam: Positive for: ATRAUMATIC Skin: Positive for: Normal Color Eye Exam: Positive for: Normal appearance Neck: Positive for: Normal Cardiovascular/Chest: Negative for: Bradycardia, Tachycardia Respiratory: Negative for: Accessory Muscle Use, Respiratory Distress Extremity: Positive for: Tenderness (Tenderness to light touch on the surface of toes on the right foot.), Swelling (No swelling noted on right foot), Other ( No obvious bruising on the right foot. ) - ECG O2 Sat by Pulse Oximetry: 96 (RA) Pulse Ox Interpretation: Normal Medical Decision Making Medical Decision Making: Time: 2035 Plan: -- Lactulose 20 gm PO Scribe Attestation: Documented by Tutu Butler, acting as a scribe for Ceci Rangel PA-C. Provider Scribe Attestation: All medical record entries made by the Scribe were at my direction and personally dictated by me. I have reviewed the chart and agree that the record accurately reflects my personal performance of the history, physical exam, medical decision making, and the department course for this patient. I have also personally directed, reviewed, and agree with the discharge instructions and disposition. Disposition - Clinical Impression Clinical Impression: Neuropathy, Medication refill - Patient ED Disposition Is Patient to be Admitted: No - Disposition Referrals: Podiatry Clinic [Outside] Disposition: Routine/Home Disposition Time: 21:10 Condition: FAIR Prescriptions: Butenafine HCl [Lotrimin Ultra] 0.5 gm TP BID #60 cream..g. Instructions: Peripheral Neuropathy Forms: [employer] (Hebrew)
[2018-01-17 21:11] VITALS: BP 134/75; PULSE 97; RESP 15
[2018-01-17 22:33] VITALS: O2SAT 96
== END 2018-01-17 21:11 | disposition home or self-care (01) ==
LOC: H.ER 19:02
DX: G62.9 Polyneuropathy, unspecified (principal); Z76.0 Encounter for issue of repeat prescription; G89.29 Other chronic pain; Z86.718 Personal history of other venous thrombosis and embolism; Z88.6 Allergy status to analgesic agent

== ENCOUNTER 2018-01-18 19:44 | Emergency (ER) | payer MEDICAID ==
[2018-01-18 19:44] VITALS: BMI 23.7
[2018-01-18 19:49] VITALS: BP 132/75; PULSE 117; RESP 20; TEMP 99.1; O2SAT 98
--- NOTE | 2018-01-18 19:57 | ED PDOC ---
HPI: General Adult Time Seen by Provider: 01/18/18 19:56 Chief Complaint (Nursing): Trauma Chief Complaint (Provider): head trauma/etoh History Per: Patient (52 y/o male h/o alcohol abuse/hepatic encepalopathy here for evaluation of fall into nation while urinating. Patient notes headache.) Past Medical History Reviewed: Historical Data, Nursing Documentation, Vital Signs Vital Signs: Last Vital Signs Temp 99.1 F 01/18/18 19:47 Pulse 117 H 01/18/18 19:47 Resp 20 01/18/18 19:47 BP 132/75 01/18/18 19:47 Pulse Ox 98 01/18/18 21:33 - Medical History PMH: Anemia, Anxiety, Back Problems (herniated disc), Deep Vein Thrombosis, Fractures (rib fx, left shoulder, Left hand 5th digit, Humerus fracture), Gastritis, Seizures, Chronic Pain (left shoulder) Denies: CHF, HIV, Hypercholesterolemia, Chronic Kidney Disease, Sexually Transmitted Disease - Surgical History Surgical History: Endoscopy - Family History Family History: States: Unknown Family Hx - Immunization History Hx Tetanus Toxoid Vaccination: Yes Hx Influenza Vaccination: Yes Hx Pneumococcal Vaccination: Yes - Home Medications Home Medications: Ambulatory Orders Medication Instructions Recorded levETIRAcetam [Keppra] 500 mg PO Q12H 10/25/17 Folic Acid 1 mg PO DAILY #30 tab 11/25/17 Thiamine [Vitamin B1 Tab] 100 mg PO DAILY #30 tab 11/25/17 Omeprazole 20 mg PO BID 12/21/17 Butenafine HCl [Lotrimin Ultra] 0.5 gm TP BID #60 cream..g. 01/17/18 - Allergies Allergies/Adverse Reactions: Allergies Allergy/AdvReac Type Severity Reaction Status Date / Time aspirin Allergy NAUSEA Verified 01/18/18 19:47 ibuprofen [From Motrin] Allergy NAUSEA Verified 01/18/18 19:47 naproxen Allergy RASH Verified 01/18/18 19:47 NSAIDS (Non-Steroidal Allergy NAUSEA Verified 01/18/18 19:47 Anti-Inflamma Review of Systems ROS Statement: Except As Marked, All Systems Reviewed And Found Negative Physical Exam - Reviewed Nursing Documentation Reviewed: Yes Vital Signs Reviewed: Yes - Physical Exam Appears: Positive for: Well, Non-toxic, No Acute Distress Head Exam: Positive for: ATRAUMATIC, NORMAL INSPECTION, NORMOCEPHALIC Skin: Positive for: Normal Color, Warm, DRY Eye Exam: Positive for: EOMI, Normal appearance, PERRL ENT: Positive for: Normal ENT Inspection Neck: Positive for: Normal, Painless ROM Cardiovascular/Chest: Positive for: Regular Rate, Rhythm Respiratory: Positive for: CNT, Normal Breath Sounds Gastrointestinal/Abdominal: Positive for: Normal Exam, Soft Back: Positive for: Normal Inspection Extremity: Positive for: Normal ROM Neurologic/Psych: Positive for: Alert, Oriented - ECG O2 Sat by Pulse Oximetry: 98 - Progress ED Course And Treament: HEAD CT: IMPRESSION: No acute findings. Thank you for allowing us to participate in the care of your patient. Dictated and Authenticated by: Norbert Khan MD BLOOD GLUCOSE [id number] Disposition - Clinical Impression Clinical Impression: Alcohol intoxication, Head injury - Patient ED Disposition Is Patient to be Admitted: No - Disposition Disposition: Routine/Home Disposition Time: 21:33 Condition: FAIR Instructions: Minor Head Injury (DC), Alcohol Abuse and Alcoholism (DC)
--- NOTE | 2018-01-19 11:22 | CT ---
Date of service: 01/18/2018 PROCEDURE: CT HEAD WITHOUT CONTRAST. HISTORY: head injury COMPARISON: 12/25/2017, 12/27/2017. TECHNIQUE: Axial computed tomography images were obtained through the head/brain without intravenous contrast. Radiation dose: Total exam DLP = 777.03 mGy-cm. This CT exam was performed using one or more of the following dose reduction techniques: Automated exposure control, adjustment of the mA and/or kV according to patient size, and/or use of iterative reconstruction technique. FINDINGS: HEMORRHAGE: No intracranial hemorrhage. BRAIN: No mass effect or edema. No atrophy or chronic microvascular ischemic changes. VENTRICLES: Unremarkable. No hydrocephalus. CALVARIUM: Unremarkable. PARANASAL SINUSES: Incompletely visualize chronic ethmoid and maxillary sinusitis MASTOID AIR CELLS: Unremarkable as visualized. No inflammatory changes. OTHER FINDINGS: None. IMPRESSION: No acute intracranial abnormalities. No significant findings to account for the clinical presentation. No significant interval change compared to the prior examination(s). Concordant results (preliminary interpretation) provided by [employer]. Procedure Completed: 20:38 Preliminary ([employer]) Report: Dictated and Authenticated: 21:02. Final Interpretation: 11:19. January 19, 2018.
== END 2018-01-18 21:48 | disposition home or self-care (01) ==
LOC: H.ER 19:44
DX: F10.129 Alcohol abuse with intoxication, unspecified (principal); S09.90XA Unspecified injury of head, initial encounter; G89.29 Other chronic pain; Z86.718 Personal history of other venous thrombosis and embolism; Z88.6 Allergy status to analgesic agent; W18.30XA Fall on same level, unspecified, initial encounter

== ENCOUNTER 2018-01-19 08:25 | Emergency (ER) | payer MEDICAID ==
[2018-01-19 08:25] VITALS: BMI 23.7
[2018-01-19 08:30] VITALS: TEMP 98.7
[2018-01-19 09:22] VITALS: RESP 18; O2SAT 100
[2018-01-19 09:25] VITALS: BP 128/72; PULSE 89
== END 2018-01-19 09:15 | disposition left against medical advice (07) ==
LOC: H.ER 08:25
DX: Z02.89 Encounter for other administrative examinations (principal)

== ENCOUNTER 2018-01-20 14:09 | Emergency (ER) | payer MEDICAID ==
[2018-01-20 14:09] VITALS: BMI 23.7
[2018-01-20 15:08] VITALS: BP 126/63; PULSE 98; RESP 19; TEMP 98.2; O2SAT 97
--- NOTE | 2018-01-20 16:37 | ED PDOC ---
HPI: Seizure Time Seen by Provider: 01/20/18 15:12 Chief Complaint (Nursing): Seizure Chief Complaint (Provider): Seizure History Per: Patient History/Exam Limitations: no limitations Recent Seizure Activity Began: Unknown Number Of Seizures: One Length Of Seizures (Duration): Unknown Additional Complaint(s): 52 year old male arrives to ED for an evaluation of an unwitnessed seizure this morning, contrary to triage note. Upon provider entering room, patient is requesting food. He denies any incontinence or oral injury. He states that he ran out of his Keppra medication and asking for a refill. PMD: Dr. Chanelle Rowe Past Medical History Reviewed: Historical Data, Nursing Documentation, Vital Signs Vital Signs: Last Vital Signs Temp 98.2 F 01/20/18 15:03 Pulse 98 H 01/20/18 15:03 Resp 19 01/20/18 15:03 BP 126/63 01/20/18 15:03 Pulse Ox 97 01/20/18 16:41 - Medical History PMH: Anemia, Anxiety, Back Problems (herniated disc), Deep Vein Thrombosis, Fractures (rib fx, left shoulder, Left hand 5th digit, Humerus fracture), Gastritis, Seizures, Chronic Pain (left shoulder) Denies: CHF, HIV, Hypercholesterolemia, Chronic Kidney Disease, Sexually Transmitted Disease - Surgical History Surgical History: Endoscopy - Family History Family History: States: Unknown Family Hx - Immunization History Hx Tetanus Toxoid Vaccination: Yes Hx Influenza Vaccination: Yes Hx Pneumococcal Vaccination: Yes - Home Medications Home Medications: Ambulatory Orders Medication Instructions Recorded levETIRAcetam [Keppra] 500 mg PO Q12H 10/25/17 Folic Acid 1 mg PO DAILY #30 tab 11/25/17 Thiamine [Vitamin B1 Tab] 100 mg PO DAILY #30 tab 11/25/17 Omeprazole 20 mg PO BID 12/21/17 Butenafine HCl [Lotrimin Ultra] 0.5 gm TP BID #60 cream..g. 01/17/18 - Allergies Allergies/Adverse Reactions: Allergies Allergy/AdvReac Type Severity Reaction Status Date / Time aspirin Allergy NAUSEA Verified 01/18/18 19:47 ibuprofen [From Motrin] Allergy NAUSEA Verified 01/18/18 19:47 naproxen Allergy RASH Verified 01/18/18 19:47 NSAIDS (Non-Steroidal Allergy NAUSEA Verified 01/18/18 19:47 Anti-Inflamma Review of Systems ROS Statement: Except As Marked, All Systems Reviewed And Found Negative ENT: Negative for: Other (tongue biting) Genitourinary Male: Negative for: Incontinence Neurological: Positive for: Seizures (unwitnessed) Physical Exam - Reviewed Nursing Documentation Reviewed: Yes Vital Signs Reviewed: Yes - Physical Exam Appears: Positive for: No Acute Distress Head Exam: Positive for: ATRAUMATIC, NORMAL INSPECTION, NORMOCEPHALIC ENT: Negative for: Other (oral injuries) Cardiovascular/Chest: Positive for: Regular Rate, Rhythm Respiratory: Positive for: Normal Breath Sounds. Negative for: Respiratory Distress Gastrointestinal/Abdominal: Positive for: Normal Exam, Soft. Negative for: Tenderness Neurologic/Psych: Positive for: Alert (x3), Oriented, Gait (steady) - ECG O2 Sat by Pulse Oximetry: 97 (RA) Pulse Ox Interpretation: Normal Medical Decision Making Medical Decision Making: Initial Impression: Med refill Initial Plan: * Keppra 500mg PO --------- --Of note, according to detective, patient had left ED twice, prior to triaging to smoke. Pt. left ED prior to getting Keppra dose and re-evaluation. Scribe Attestation: Documented by Dulce Hoffmann, acting as a scribe for Lincoln Olivier PA-C. Provider Scribe Attestation: All medical record entries made by the Scribe were at my direction and personally dictated by me. I have reviewed the chart and agree that the record accurately reflects my personal performance of the history, physical exam, medical decision making, and the department course for this patient. I have also personally directed, reviewed, and agree with the discharge instructions and disposition. Disposition - Clinical Impression Clinical Impression: Malingerer - Disposition Disposition: Left W/O Treatment Disposition Time: 17:00 Condition: STABLE Forms: [employer] (Yakut)
== END 2018-01-20 17:21 | disposition left against medical advice (07) ==
LOC: H.ER 14:09
DX: Z76.5 Malingerer [conscious simulation] (principal)

== ENCOUNTER 2018-01-20 21:21 | Emergency (ER) | payer MEDICAID ==
[2018-01-20 21:21] VITALS: BMI 23.7
--- NOTE | 2018-01-20 21:57 | ED PDOC ---
HPI: Psych/Substance Abuse Time Seen by Provider: 01/20/18 21:29 Chief Complaint (Nursing): Alcohol Ingestion Chief Complaint (Provider): Seizure History Per: Patient Onset/Duration Of Symptoms: Mins Current Symptoms Are (Timing): Still Present Modifying Factor(s): Alcohol Additional Complaint(s): 52 y/o male with a PMHx of alcohol abuse and seizures presents to the ED complaining of seizures, onset prior to arrival. Patient is well known to the ER for alcohol dependency and seizures for which he is non-compliant with medications. Patient reports of having one unwitnessed seizure and hitting his head prior to arrival. Patient was seen here earlier today for the same reason but left prior to being given a dose of Kepra because he "wanted to strip picker his check". Patient was brought in after being found sleeping on the ground. Denies drinking alcohol. PMD: Chanelle Rowe Past Medical History Reviewed: Historical Data, Nursing Documentation, Vital Signs Vital Signs: Last Vital Signs Temp 97.9 F 01/20/18 21:27 Pulse 107 H 01/20/18 21:27 Resp 16 01/20/18 21:27 BP 113/69 01/20/18 21:27 Pulse Ox 97 01/20/18 21:27 - Medical History PMH: Anemia, Anxiety, Back Problems (herniated disc), Deep Vein Thrombosis, Fractures (rib fx, left shoulder, Left hand 5th digit, Humerus fracture), Gastritis, Seizures, Chronic Pain (left shoulder) Denies: CHF, HIV, Hypercholesterolemia, Chronic Kidney Disease, Sexually Transmitted Disease - Surgical History Surgical History: Endoscopy - Family History Family History: States: Unknown Family Hx - Social History Alcohol: > 2 Drinks/Day - Immunization History Hx Tetanus Toxoid Vaccination: Yes Hx Influenza Vaccination: Yes Hx Pneumococcal Vaccination: Yes - Home Medications Home Medications: Ambulatory Orders Medication Instructions Recorded levETIRAcetam [Keppra] 500 mg PO Q12H 10/25/17 Folic Acid 1 mg PO DAILY #30 tab 11/25/17 Thiamine [Vitamin B1 Tab] 100 mg PO DAILY #30 tab 11/25/17 Omeprazole 20 mg PO BID 12/21/17 Butenafine HCl [Lotrimin Ultra] 0.5 gm TP BID #60 cream..g. 01/17/18 - Allergies Allergies/Adverse Reactions: Allergies Allergy/AdvReac Type Severity Reaction Status Date / Time aspirin Allergy NAUSEA Verified 01/20/18 21:27 ibuprofen [From Motrin] Allergy NAUSEA Verified 01/20/18 21:27 naproxen Allergy RASH Verified 01/20/18 21:27 NSAIDS (Non-Steroidal Allergy NAUSEA Verified 01/20/18 21:27 Anti-Inflamma Review of Systems ROS Statement: Except As Marked, All Systems Reviewed And Found Negative Eyes: Negative for: Vision Change Neurological: Positive for: Seizures, Headache (right-sided). Negative for: Weakness (focal) Physical Exam - Reviewed Nursing Documentation Reviewed: Yes Vital Signs Reviewed: Yes - Physical Exam Appears: Positive for: No Acute Distress (disheveled and lethargic) Head Exam: Positive for: NORMAL INSPECTION (Reports tenderness to the right occipital lobe.) Skin: Positive for: Warm, Dry Eye Exam: Positive for: Conjunctival injection ENT: Positive for: Other (no tongue abrasion, dry mucus membranes) Neck: Positive for: Painless ROM, Supple Cardiovascular/Chest: Positive for: Regular Rate, Rhythm. Negative for: Murmur Respiratory: Negative for: Accessory Muscle Use, Respiratory Distress Gastrointestinal/Abdominal: Positive for: Soft. Negative for: Distended Back: Positive for: Normal Inspection. Negative for: Decreased ROM Extremity: Positive for: Other (Multiple scabs on the bilateral extremities) Lymphatic: Positive for: Deferred Neurologic/Psych: Positive for: Other (Slurred Speech ). Negative for: Alert ( lethargic), Motor/Sensory Deficits - ECG O2 Sat by Pulse Oximetry: 97 (RA) Pulse Ox Interpretation: Normal Medical Decision Making Medical Decision Making: Time: 2153 Impression: Alcohol Abuse and seizures Plan: -- CT Head w/o Contrast -- Alcohol Serum -- Glucose, POC -- Keppra 500 mg PO Time: [address] RESULTS FINDINGS: Brain: There is stable age-related diffuse cerebral volume loss and chronic microvascular ischemic disease. Ventricles: Normal. No ventriculomegaly. Bones/joints: Normal. No acute fracture. Sinuses: Stable mucosal thickening in the ethmoid, sphenoid and maxillary sinuses with mucous retention cysts or polyps in the bilateral maxillary sinus. Mastoid air cells: Stable partial fluid opacification of the left mastoid air cells, cannot exclude mild left mastoiditis. Soft tissues: Normal. IMPRESSION: 1. Stable partial fluid opacification of the left mastoid air cells, cannot exclude mild left mastoiditis. 2. There is stable age-related diffuse cerebral volume loss and chronic microvascular ischemic disease. 3. No acute intracranial pathology. Thank you for allowing us to participate in the care of your patient. Dictated and Authenticated by: Brody Gan MD 01/20/2018 10:51 PM Eastern Time ([place] & [place]) Scribe Attestation: Documented by Tutu Butler acting as a scribe for Dr. Fatimah Morillo. Provider Scribe Attestation: All medical record entries made by the Scribe were at my direction and personally dictated by me. I have reviewed the chart and agree that the record accurately reflects my personal performance of the history, physical exam, medical decision making, and the department course for this patient. I have also personally directed, reviewed, and agree with the discharge instructions and disposition. Disposition - Clinical Impression Clinical Impression: Alcohol abuse with intoxication, Seizure - Disposition Disposition: Transfer of Care Disposition Time: 00:00 Condition: STABLE Patient Signed Over To: Murphy Chiu Handoff Comments: Pending sobriety
--- NOTE | 2018-01-21 00:43 | ED PDOC ---
- ECG O2 Sat by Pulse Oximetry: 97 (RA) Medical Decision Making Medical Decision Making: Time: 00:00 Patient signed out to this provider pending clinical sobriety and final disposition. Time: 05:21 At this time patient is clinically sober for discharge. Diagnosis is seizure and alcohol abuse with intoxication Scribe Attestation: Documented by Raghu Salazar, acting as a scribe for Olaf Fernandez MD. Provider Scribe Attestation: All medical record entries made by the Scribe were at my direction and personally dictated by me. I have reviewed the chart and agree that the record accurately reflects my personal performance of the history, physical exam, medical decision making, and the department course for this patient. I have also personally directed, reviewed, and agree with the discharge instructions and disposition. Disposition - Clinical Impression Clinical Impression: Alcohol abuse with intoxication, Seizure - POA Present On Arrival: None - Disposition Disposition: Routine/Home Disposition Time: 05:11 Condition: STABLE Additional Instructions: KINDRA MARTINI, thank you for letting us take care of you today. Your provider was Olaf Fernandez MD and you were treated for POSS ETOH. The emergency medical care you received today was directed at your acute symptoms. If you were prescribed any medication, please fill it and take as directed. It may take several days for your symptoms to resolve. Return to the Emergency Department if your symptoms worsen, do not improve, or if you have any other problems. Please contact your doctor or call one of the physicians/clinics you have been referred to that are listed on the Patient Visit Information form that is included in your discharge packet. Bring any paperwork you were given at discharge with you along with any medications you are taking to your follow up visit. Our treatment cannot replace ongoing medical care by a primary care provider outside of the emergency department. Thank you for allowing the [facility] team to be part of your care today. If you had an X-Ray or CT scan: A Radiologist will review the ED reading if any change in treatment is needed we will contact you. If you had a blood, urine, or wound culture: It will take several days for the results, if any change in treatment is needed we will contact you. If you had an STI test: It will take 48 hours for the results. Please call after 1 week if you have not heard back. Instructions: Effects of Alcohol on Your Health Forms: [facility] (Omani)
[2018-01-21 04:25] VITALS: RESP 18
[2018-01-21 06:31] VITALS: BP 128/76; PULSE 80; TEMP 98
--- NOTE | 2018-01-21 10:14 | CT ---
Date of service: 01/20/2018 PROCEDURE: CT HEAD WITHOUT CONTRAST. HISTORY: head injury COMPARISON: Noncontrast head CT 01/18/2018. TECHNIQUE: Axial computed tomography images were obtained through the head/brain without intravenous contrast. Radiation dose: Total exam DLP = 898.14 mGy-cm. This CT exam was performed using one or more of the following dose reduction techniques: Automated exposure control, adjustment of the mA and/or kV according to patient size, and/or use of iterative reconstruction technique. FINDINGS: HEMORRHAGE: No intracranial hemorrhage. BRAIN: Corticomedullary differentiation remains good throughout. Proportional, diffuse cerebral atrophy and chronic microangiopathy are reiterated. No interval mass effect is identified or suspicious extra-axial fluid collection in the midline brain and appears diffusely unremarkable nevertheless. Posterior fossa contents remain unremarkable including the brainstem. VENTRICLES: Unremarkable. No hydrocephalus. CALVARIUM: Unremarkable. PARANASAL SINUSES: Bilateral maxillary sinus disease is reiterated. MASTOID AIR CELLS: Limited bilateral mastoid effusions reiterated. OTHER FINDINGS: None. IMPRESSION: No definite interval acute CT finding throughout this unenhanced head CT. Age related neuro degenerative findings are reiterated.
[2018-01-21 16:58] VITALS: O2SAT 97
== END 2018-01-21 06:10 | disposition home or self-care (01) ==
LOC: H.ER 21:21
DX: F10.129 Alcohol abuse with intoxication, unspecified (principal); R56.9 Unspecified convulsions; S09.90XA Unspecified injury of head, initial encounter; W19.XXXA Unspecified fall, initial encounter; Y92.89 Other specified places as the place of occurrence of the external cause; Z88.6 Allergy status to analgesic agent

== ENCOUNTER 2018-01-21 19:08 | Emergency (ER) | payer MEDICAID ==
[2018-01-21 19:08] VITALS: BMI 23.7
[2018-01-21 19:21] VITALS: BP 132/76; PULSE 97; RESP 18; TEMP 98.3; O2SAT 100
--- NOTE | 2018-01-21 19:37 | ED PDOC ---
HPI: Psych/Substance Abuse Time Seen by Provider: 01/21/18 19:17 Chief Complaint (Nursing): Alcohol Ingestion Chief Complaint (Provider): Alcohol Ingestion ED Caveat: Intoxicated History Per: EMS History/Exam Limitations: intoxication Onset/Duration Of Symptoms: Mins (prior to arrival) Current Symptoms Are (Timing): Still Present Additional Complaint(s): 52 year old male well known to the ED for frequent visits presents today via EMS after being found intoxicated in a park. Patient admits to drinking, but is otherwise a poor historian, resulting in a limited HPI / ROS. All PMHX was obtained from previous charting. Of note, patient was discharged this morning at 5AM for alcohol intoxication. No reports of trauma. Patient denies any physical complaints at present. PMD: none provided Past Medical History Reviewed: Historical Data, Nursing Documentation, Vital Signs Vital Signs: Last Vital Signs Temp 98.3 F 01/21/18 19:18 Pulse 97 H 01/21/18 19:18 Resp 18 01/21/18 19:18 BP 132/76 01/21/18 19:18 Pulse Ox 100 01/21/18 19:18 - Medical History PMH: Anemia, Anxiety, Back Problems (herniated disc), Deep Vein Thrombosis, Fractures (rib fx, left shoulder, Left hand 5th digit, Humerus fracture), Gastritis, Seizures, Chronic Pain (left shoulder) - Surgical History Surgical History: Endoscopy - Family History Family History: States: Unknown Family Hx - Home Medications Home Medications: Ambulatory Orders Medication Instructions Recorded levETIRAcetam [Keppra] 500 mg PO Q12H 10/25/17 Folic Acid 1 mg PO DAILY #30 tab 11/25/17 Thiamine [Vitamin B1 Tab] 100 mg PO DAILY #30 tab 11/25/17 Omeprazole 20 mg PO BID 12/21/17 Butenafine HCl [Lotrimin Ultra] 0.5 gm TP BID #60 cream..g. 01/17/18 - Allergies Allergies/Adverse Reactions: Allergies Allergy/AdvReac Type Severity Reaction Status Date / Time aspirin Allergy NAUSEA Verified 01/21/18 19:17 ibuprofen [From Motrin] Allergy NAUSEA Verified 01/21/18 19:17 naproxen Allergy RASH Verified 01/21/18 19:17 NSAIDS (Non-Steroidal Allergy NAUSEA Verified 01/21/18 19:17 Anti-Inflamma Review of Systems Review Of Systems: ROS cannot be obtained secondary to pt's inabilty to answer questions. Psych: Positive for: Other (alcohol intoxication) Physical Exam - Reviewed Nursing Documentation Reviewed: Yes Vital Signs Reviewed: Yes - Physical Exam Comments: GENERAL APPEARANCE: Patient is intoxicated, somnolent, and uncooperative. Unsteady gait in ED. SKIN: Warm, dry; (-) cyanosis HEAD: (-) scalp swelling, (-) scalp tenderness. EYES: (+) conjunctival injection ENMT: Mucous membranes moist. Airway patent: (-) stridor. NECK: Supple HEART AND CARDIOVASCULAR: (-) irregularity; (-) murmur CHEST AND RESPIRATORY: (-) rales, (-) rhonchi, (-) wheezes; breath sounds equal. ABDOMEN: Soft, (-) distention, (-) tenderness, (-) guarding. NEURO AND PSYCH: Mental status as above. Affect: flat. Pupils equal and reactive ; (-) facial asymmetry - ECG O2 Sat by Pulse Oximetry: 100 (RA) Pulse Ox Interpretation: Normal Medical Decision Making Medical Decision Making: Time: 1928 Initial Impression: alcohol intoxication and abuse Initial Plan: --Alcohol serum --Accucheck --Re-evaluation --Clinical Sobriety Accucheck: 101 2049 Serum Alcohol: 191 0 Patient sleeping comfortably. No distress noted 2239 Patient ambulating in ED with a steady, unassisted gait. Requesting a food tray at this time. On re-evaluation, patient offers no complaints. On exam, patient now AAOx3, in no acute distress. Neck is supple, lungs CTA, cardiac RRR, abdomen is soft and non-tender, neuro exam shows no focal findings. VSS, stable for discharge. Diagnostic results d/w the patient in great detail. Dx of alcohol abuse and intoxication d/w the patient. Based on history, exam and diagnostic results plan will be for discharge. Patient was observed in ED for 3+ hours with no evidence of clinical or neurological deterioration. Advised to follow up with primary care physician/clinic in 1-2 days without fail. Advised to take medication as prescribed. Return to the emergency room at any time for any new or worsening symptoms. Patient states he fully agrees with and understands discharge instructions. States that he agrees with the plan and disposition. Verbalized and repeated discharge instructions and plan. I have given the patient opportunity to ask any additional questions. Scribe Attestation: Documented by Meryl Mahoney, acting as a scribe for Haydee Hayes PA-C. Provider Scribe Attestation: All medical record entries made by the Scribe were at my direction and personally dictated by me. I have reviewed the chart and agree that the record accurately reflects my personal performance of the history, physical exam, medical decision making, and the department course for this patient. I have also personally directed, reviewed, and agree with the discharge instructions and disposition. Disposition - Clinical Impression Clinical Impression: Alcohol abuse with intoxication - Patient ED Disposition Is Patient to be Admitted: No Counseled Patient/Family Regarding: Studies Performed, Diagnosis, Need For Followup - Disposition Referrals: [facility] [Outside] Disposition: Routine/Home Disposition Time: 22:42 Condition: IMPROVED Instructions: Alcohol Abuse and Alcoholism (DC), Effects of Alcohol on Your Health Forms: [employer] [facility] (Lao) Print Language: UZBEK - POA Present On Arrival: None Results - Lab Results Lab Results: 01/21/18 20:15 Alcohol, Quantitative 191 H
== END 2018-01-21 22:47 | disposition home or self-care (01) ==
LOC: H.ER 19:08
DX: F10.129 Alcohol abuse with intoxication, unspecified (principal)

== ENCOUNTER 2018-01-22 14:03 | Emergency (ER) | payer MEDICAID ==
[2018-01-22 14:04] VITALS: BMI 23.7
--- NOTE | 2018-01-22 14:38 | ED PDOC ---
HPI: Seizure Time Seen by Provider: 01/22/18 14:15 Chief Complaint (Nursing): Seizure Chief Complaint (Provider): Seizure History Per: Patient History/Exam Limitations: no limitations Additional Complaint(s): Pt. with seizure while at [facility], [facility]. States he was with his friends and may have hit the back of his head. States he takes his med (keppra) for seizure. Had no etoh or drugs. No chest pain, dyspnea, weakness, numbness, tingles, abd pain. Past Medical History Reviewed: Nursing Documentation, Vital Signs Vital Signs: Last Vital Signs Temp 98 F 01/22/18 16:44 Pulse 84 01/22/18 16:44 Resp 19 01/22/18 16:44 BP 128/70 01/22/18 16:44 Pulse Ox 98 01/22/18 16:44 - Medical History PMH: Anemia, Anxiety, Back Problems (herniated disc), Fractures (rib fx, left shoulder, Left hand 5th digit, Humerus fracture), Gastritis, Seizures, Chronic Pain (left shoulder) Denies: CHF, HIV, Hypercholesterolemia, Chronic Kidney Disease, Sexually Transmitted Disease - Surgical History Surgical History: Endoscopy - Family History Family History: States: Unknown Family Hx - Immunization History Hx Tetanus Toxoid Vaccination: Yes Hx Influenza Vaccination: Yes Hx Pneumococcal Vaccination: Yes - Home Medications Home Medications: Ambulatory Orders Medication Instructions Recorded levETIRAcetam [Keppra] 500 mg PO Q12H 10/25/17 Folic Acid 1 mg PO DAILY #30 tab 11/25/17 Thiamine [Vitamin B1 Tab] 100 mg PO DAILY #30 tab 11/25/17 Omeprazole 20 mg PO BID 12/21/17 Butenafine HCl [Lotrimin Ultra] 0.5 gm TP BID #60 cream..g. 01/17/18 - Allergies Allergies/Adverse Reactions: Allergies Allergy/AdvReac Type Severity Reaction Status Date / Time aspirin Allergy NAUSEA Verified 01/21/18 19:17 ibuprofen [From Motrin] Allergy NAUSEA Verified 01/21/18 19:17 naproxen Allergy RASH Verified 01/21/18 19:17 NSAIDS (Non-Steroidal Allergy NAUSEA Verified 01/21/18 19:17 Anti-Inflamma Review of Systems ROS Statement: Except As Marked, All Systems Reviewed And Found Negative Neurological: Positive for: Seizures Physical Exam - Reviewed Nursing Documentation Reviewed: Yes Vital Signs Reviewed: Yes - Physical Exam Appears: Positive for: Non-toxic, No Acute Distress Head Exam: Positive for: ATRAUMATIC, NORMAL INSPECTION, NORMOCEPHALIC Skin: Positive for: Normal Color, Warm, DRY Eye Exam: Positive for: EOMI, Normal appearance, PERRL ENT: Positive for: Normal ENT Inspection Neck: Positive for: Normal, Painless ROM Cardiovascular/Chest: Positive for: Regular Rate, Rhythm Respiratory: Positive for: CNT, Normal Breath Sounds Gastrointestinal/Abdominal: Positive for: Normal Exam, Soft. Negative for: Tenderness Back: Positive for: Normal Inspection. Negative for: L CVA Tenderness, R CVA Tenderness Extremity: Positive for: Normal ROM. 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 Negative for: Motor/Sensory Deficits, Aphasia, Facial Droop - Laboratory Results Result Diagrams: 01/22/18 14:49 01/22/18 14:49 Interpretation Of Abn Labs: 193 etoh - ECG O2 Sat by Pulse Oximetry: 99 Pulse Ox Interpretation: Normal - CT Scan/US ct Other Rad Studies (CT/US): Read By Radiologist Other Rad Interpretation: no acute - Progress ED Course And Treament: 1750: Stable. AAOx3. Tolerated PO. Ambulating in ER with no issues. Clinical sobriety reached. Disposition - Clinical Impression Clinical Impression: Seizure, Alcohol intoxication, Headache - Patient ED Disposition Is Patient to be Admitted: No - Disposition Referrals: [facility] [place] [Outside] - 01/24/18 Disposition: Routine/Home Disposition Time: 17:54 Condition: STABLE Additional Instructions: Return if not better in 3 days. Instructions: Headache, Adult, Alcohol Abuse and Alcoholism (DC), Seizures, Adult (DC)
[2018-01-22 15:09] LABS: BASO % 0.3 % (0.0-2.0); EOS # 0.6 K/uL (0.0-0.7); EOS % 15.5 % (0.0-4.0); HEMOGLOBIN 9.8 g/dL (12.0-18.0); LYMPH # 0.8 K/uL (1.0-4.3); LYMPH % 20.8 % (20.0-40.0); MEAN CORPUSCULAR HEMOGLOBIN 29.6 pg (27.0-31.0); MEAN CORPUSCULAR HGB CONC 32.8 g/dL (33.0-37.0); MEAN PLATELET VOLUME 7.1 fl (7.2-11.7); MONO # 0.5 K/uL (0.0-0.8); MONO % 13.4 % (0.0-10.0); NEUT # 1.9 K/uL (1.8-7.0); NRBC % 0.2 % (0.0-0.0); RBC 3.33 Mil/uL (4.40-5.90); RED CELL DISTRIBUTION WIDTH 22.5 % (11.5-14.5); WHITE BLOOD COUNT 3.9 K/uL (4.8-10.8)
[2018-01-22 15:13] LABS: INR 1.4; PROTHROMBIN TIME 15.8 Seconds (9.8-13.1)
[2018-01-22 15:16] LABS: PARTIAL THROMBOPLASTIN TIME 37.4 Seconds (25.6-37.1)
[2018-01-22 15:37] LABS: ALB/GLOB RATIO 0.8 (1.0-2.1); ALBUMIN 3.3 g/dL (3.5-5.0); ALT/SGPT 85 U/L (21-72); AST/SGOT 202 U/L (17-59); BLOOD UREA NITROGEN 12 mg/dl (9-20); GFR AFRICAN-AMERICAN > 60; GFR NON-AFRICAN AMERICAN > 60
[2018-01-22 16:45] VITALS: RESP 19
[2018-01-22 18:14] VITALS: BP 128/76; PULSE 80; TEMP 97.6; O2SAT 98
--- NOTE | 2018-01-23 08:45 | CARD ---
APPROVED REPORT Date of service: 01/22/2018 <Conclusion> Normal sinus rhythm Possible Left atrial enlargement Left ventricular hypertrophy Abnormal ECG
--- NOTE | 2018-01-23 08:48 | CT ---
Date of service: 01/22/2018 PROCEDURE: CT HEAD WITHOUT CONTRAST. HISTORY: headache COMPARISON: None available. TECHNIQUE: Axial computed tomography images were obtained through the head/brain without intravenous contrast. Radiation dose: Total exam DLP = mGy-cm. This CT exam was performed using one or more of the following dose reduction techniques: Automated exposure control, adjustment of the mA and/or kV according to patient size, and/or use of iterative reconstruction technique. FINDINGS: HEMORRHAGE: No intracranial hemorrhage. BRAIN: No mass effect or edema. Atrophy and chronic periventricular white matter ischemic disease. VENTRICLES: Unremarkable. No hydrocephalus. CALVARIUM: Unremarkable. PARANASAL SINUSES: Unremarkable as visualized. No significant inflammatory changes. MASTOID AIR CELLS: Unremarkable as visualized. No inflammatory changes. OTHER FINDINGS: None. IMPRESSION: No intracranial hemorrhage.
== END 2018-01-22 18:48 | disposition home or self-care (01) ==
LOC: H.ER 14:03
DX: G40.909 Epilepsy, unspecified, not intractable, without status epilepticus (principal); F10.129 Alcohol abuse with intoxication, unspecified; Z88.6 Allergy status to analgesic agent

== ENCOUNTER 2018-01-23 12:38 | Emergency (ER) | payer MEDICAID ==
[2018-01-23 12:38] VITALS: BMI 23.7
[2018-01-23 12:47] VITALS: O2SAT 99
[2018-01-23 13:18] LABS: BASO # 0.1 K/uL (0.0-0.2); BASO % 1.5 % (0.0-2.0); EOS # 0.7 K/uL (0.0-0.7); HEMOGLOBIN 9.1 g/dL (12.0-18.0); LYMPH # 0.7 K/uL (1.0-4.3); LYMPH % 16.3 % (20.0-40.0); MEAN CELL VOLUME 89.5 fl (80.0-94.0); MEAN CORPUSCULAR HEMOGLOBIN 30.3 pg (27.0-31.0); MEAN CORPUSCULAR HGB CONC 33.8 g/dL (33.0-37.0); MONO # 0.6 K/uL (0.0-0.8); MONO % 14.2 % (0.0-10.0); NEUT # 2.3 K/uL (1.8-7.0); NRBC % 0.1 % (0.0-0.0); RBC 2.99 Mil/uL (4.40-5.90); WHITE BLOOD COUNT 4.4 K/uL (4.8-10.8)
--- NOTE | 2018-01-23 13:28 | ED PDOC ---
HPI: Psych/Substance Abuse Time Seen by Provider: 01/23/18 12:48 Chief Complaint (Nursing): Alcohol Ingestion Chief Complaint (Provider): Alcohol Intoxication, Possible Seizure History Per: Patient, EMS History/Exam Limitations: intoxication Onset/Duration Of Symptoms: Mins (prior to arrival) Current Symptoms Are (Timing): Still Present Additional Complaint(s): 52 year old male, well known to this ED and provider, presents to the ED via EMS after being found laying on the ground by a bystander prior to arrival. Patient states he had a seizure after drinking alcohol and not taking his Keppra today, and that is why he was on the ground. At this time, he is complaining of right shoulder pain and a headache. Otherwise, he denies nausea, vomiting, leg pain, and abdominal pain. PMD: none provided Past Medical History Reviewed: Historical Data, Nursing Documentation, Vital Signs Vital Signs: Last Vital Signs Temp 97.7 F 01/23/18 12:45 Pulse 72 01/23/18 12:45 Resp 18 01/23/18 12:45 BP 98/60 L 01/23/18 12:45 Pulse Ox 99 01/23/18 12:45 - Medical History PMH: Anemia, Anxiety, Back Problems (herniated disc), Deep Vein Thrombosis, Fractures (rib fx, left shoulder, Left hand 5th digit, Humerus fracture), Gastritis, Seizures, Chronic Pain (left shoulder) Denies: CHF, HIV, Hypercholesterolemia, Chronic Kidney Disease, Sexually Transmitted Disease - Surgical History Surgical History: Endoscopy - Family History Family History: States: Unknown Family Hx - Social History Current smoker - smoking cessation education provided: Yes (heavy) Alcohol: > 2 Drinks/Day - Immunization History Hx Tetanus Toxoid Vaccination: Yes Hx Influenza Vaccination: Yes Hx Pneumococcal Vaccination: Yes - Home Medications Home Medications: Ambulatory Orders Medication Instructions Recorded levETIRAcetam [Keppra] 500 mg PO Q12H 10/25/17 Folic Acid 1 mg PO DAILY #30 tab 11/25/17 Thiamine [Vitamin B1 Tab] 100 mg PO DAILY #30 tab 11/25/17 Omeprazole 20 mg PO BID 12/21/17 Butenafine HCl [Lotrimin Ultra] 0.5 gm TP BID #60 cream..g. 01/17/18 - Allergies Allergies/Adverse Reactions: Allergies Allergy/AdvReac Type Severity Reaction Status Date / Time aspirin Allergy NAUSEA Verified 01/21/18 19:17 ibuprofen [From Motrin] Allergy NAUSEA Verified 01/21/18 19:17 naproxen Allergy RASH Verified 01/21/18 19:17 NSAIDS (Non-Steroidal Allergy NAUSEA Verified 01/21/18 19:17 Anti-Inflamma Review of Systems ROS Statement: Except As Marked, All Systems Reviewed And Found Negative Gastrointestinal: Negative for: Nausea, Vomiting, Abdominal Pain Musculoskeletal: Positive for: Shoulder Pain (right). Negative for: Leg Pain Neurological: Positive for: Seizures (possible prior to arrival), Headache Physical Exam - Reviewed Nursing Documentation Reviewed: Yes Vital Signs Reviewed: Yes - Physical Exam Appears: Positive for: No Acute Distress (slurred speech with alcohol on breath but appears more somnolent than normal) Head Exam: Positive for: ATRAUMATIC, NORMOCEPHALIC Skin: Positive for: Normal Color, Warm, Dry Eye Exam: Positive for: Normal appearance ENT: Positive for: Normal ENT Inspection Neck: Positive for: Normal, Painless ROM, Supple Cardiovascular/Chest: Positive for: Regular Rate, Rhythm Respiratory: Positive for: Normal Breath Sounds. Negative for: Accessory Muscle Use, Respiratory Distress Pulses-Radial (L): 2+ Pulses-Radial (R): 2+ Gastrointestinal/Abdominal: Positive for: Normal Exam, Soft. Negative for: Tenderness Back: Positive for: Normal Inspection Extremity: Positive for: Tenderness (to right lateral shoulder, no skin tenting noted) Neurologic/Psych: Positive for: Alert, Oriented (x3) - Laboratory Results Result Diagrams: 01/23/18 13:10 01/23/18 13:10 - ECG O2 Sat by Pulse Oximetry: 99 (RA) Pulse Ox Interpretation: Normal Medical Decision Making Medical Decision Making: Time: 1256 Initial Impression: alcohol intoxication, possible seizure Initial Plan: --CT head w/o contrast --Alcohol serum --CMP --Drug screen --CBC with differential --Keppra 500 mg PO --Accucheck --XR right shoulder --Urinalysis 1423 CT head FINDINGS: HEMORRHAGE: No intracranial hemorrhage. BRAIN: No mass effect or edema. Chronic periventricular white matter ischemic disease. VENTRICLES: Unremarkable. No hydrocephalus. CALVARIUM: Unremarkable. PARANASAL SINUSES: Unremarkable as visualized. No significant inflammatory changes. MASTOID AIR CELLS: Unremarkable as visualized. No inflammatory changes. OTHER FINDINGS: None. IMPRESSION: No intracranial hemorrhage. 15:50 XR Shoulder Distal clavicular fracture noted, as read by STEPHAN. [id number] On re-evaluation, pt. requesting to be dc'd. Gait steady unassisted. Advised to f/u with ortho for further evaluation. Shoulder immobilized sling. Scribe Attestation: Documented by Meryl Mahoney acting as a scribe for Lincoln Olivier PA-C. Provider Scribe Attestation: All medical record entries made by the Scribe were at my direction and personally dictated by me. I have reviewed the chart and agree that the record accurately reflects my personal performance of the history, physical exam, medical decision making, and the department course for this patient. I have also personally directed, reviewed, and agree with the discharge instructions and disposition. Disposition - Clinical Impression Clinical Impression: Seizure, Clavicle fracture, Alcohol intoxication - Patient ED Disposition Is Patient to be Admitted: No - Disposition Referrals: [facility] [Outside] John Curry MD [Staff Provider] - Disposition: Routine/Home Disposition Time: 17:30 Condition: IMPROVED Additional Instructions: KINDRA MARTINI, thank you for letting us take care of you today. Your provider was Luisana Escalante MD and you were treated for POSS SEIZURE. The emergency medical care you received today was directed at your acute symptoms. If you were prescribed any medication, please fill it and take as directed. It may take several days for your symptoms to resolve. Return to the Emergency Department if your symptoms worsen, do not improve, or if you have any other problems. Please contact your doctor or call one of the physicians/clinics you have been referred to that are listed on the Patient Visit Information form that is included in your discharge packet. Bring any paperwork you were given at discharge with you along with any medications you are taking to your follow up visit. Our treatment cannot replace ongoing medical care by a primary care provider outside of the emergency department. Thank you for allowing the [facility] team to be part of your care today. If you had an X-Ray or CT scan: A Radiologist will review the ED reading if any change in treatment is needed we will contact you. If you had a blood, urine, or wound culture: It will take several days for the results, if any change in treatment is needed we will contact you. If you had an STI test: It will take 48 hours for the results. Please call after 1 week if you have not heard back. Instructions: Seizures, Adult (DC), Clavicle Fracture (DC) Forms: [employer] (Urdu) Print Language: ROMANSH
[2018-01-23 13:30] LABS: ALB/GLOB RATIO 0.8 (1.0-2.1); ALBUMIN 2.8 g/dL (3.5-5.0); ALT/SGPT 80 U/L (21-72); AST/SGOT 172 U/L (17-59); BLOOD UREA NITROGEN 15 mg/dl (9-20); GFR AFRICAN-AMERICAN > 60; GFR NON-AFRICAN AMERICAN > 60
--- NOTE | 2018-01-23 14:25 | CT ---
Date of service: 01/23/2018 PROCEDURE: CT HEAD WITHOUT CONTRAST. HISTORY: seizure, ? head injury COMPARISON: None available. TECHNIQUE: Axial computed tomography images were obtained through the head/brain without intravenous contrast. Radiation dose: Total exam DLP = mGy-cm. This CT exam was performed using one or more of the following dose reduction techniques: Automated exposure control, adjustment of the mA and/or kV according to patient size, and/or use of iterative reconstruction technique. FINDINGS: HEMORRHAGE: No intracranial hemorrhage. BRAIN: No mass effect or edema. Chronic periventricular white matter ischemic disease. VENTRICLES: Unremarkable. No hydrocephalus. CALVARIUM: Unremarkable. PARANASAL SINUSES: Unremarkable as visualized. No significant inflammatory changes. MASTOID AIR CELLS: Unremarkable as visualized. No inflammatory changes. OTHER FINDINGS: None. IMPRESSION: No intracranial hemorrhage.
--- NOTE | 2018-01-23 15:41 | RAD ---
Date of service: 01/23/2018 PROCEDURE: Radiographs of the Right Shoulder HISTORY: trauma COMPARISON: No prior. FINDINGS: BONES: Normal. No fracture. JOINTS: Normal. Glenohumeral and acromioclavicular joints preserved. No osteoarthritis. SOFT TISSUES: Normal. OTHER FINDINGS: None. IMPRESSION: Normal radiographs of the right shoulder.
[2018-01-23 16:55] LABS: SQUAMOUS EPITHIAL < 1 /hpf (0-5); URINE BACTERIA RARE (<OCC); URINE BILIRUBIN NEGATIVE (NEGATIVE); URINE BLOOD NEGATIVE (NEGATIVE); URINE CLARITY SLIGHTY-CLOUDY (Clear); URINE COLOR YELLOW (YELLOW); URINE GLUCOSE (UA) NEG (Normal); URINE LEUKOCYTE ESTERASE NEG Leu/uL (Negative); URINE PROTEIN NEGATIVE (NEGATIVE)
[2018-01-23 17:03] LABS: BENZODIAZEPINES, UR NEGATIVE (NEGATIVE)
[2018-01-23 17:11] LABS: BARBITURATES, UR NEGATIVE (NEGATIVE); OPIATES, UR NEGATIVE (NEGATIVE); PHENCYCLIDINE, UR NEGATIVE (NEGATIVE)
[2018-01-23 17:54] VITALS: BP 117/78; PULSE 89; TEMP 98
[2018-01-23 17:58] VITALS: RESP 18
== END 2018-01-23 17:58 | disposition home or self-care (01) ==
LOC: H.ER 12:38
DX: F10.129 Alcohol abuse with intoxication, unspecified (principal); R56.9 Unspecified convulsions; S42.001A Fracture of unspecified part of right clavicle, initial encounter for closed fracture; S09.90XA Unspecified injury of head, initial encounter; W19.XXXA Unspecified fall, initial encounter; Z88.6 Allergy status to analgesic agent

== ENCOUNTER 2018-01-23 20:28 | Emergency (ER) | payer MEDICAID ==
[2018-01-23 20:28] VITALS: BMI 23.7
[2018-01-23 21:02] VITALS: BP 132/66; PULSE 102; RESP 16; TEMP 98.3; O2SAT 97
--- NOTE | 2018-01-23 21:05 | ED PDOC ---
HPI: General Adult Time Seen by Provider: 01/23/18 20:36 Chief Complaint (Nursing): Med Refill Chief Complaint (Provider): Shoulder pain, asking for medication for seizures History Per: Patient History/Exam Limitations: no limitations Additional Complaint(s): 52 yo male with history of alcohol abuse and seizures presents for continued right shoulder pain and asking for Keppra in ER. Pt denies new fall or trauma. Pt ambulated to triage with steady gait. Pt not wearing sling correctly. Past Medical History Reviewed: Historical Data, Nursing Documentation, Vital Signs Vital Signs: Last Vital Signs Temp 98.3 F 01/23/18 21:01 Pulse 102 H 01/23/18 21:01 Resp 16 01/23/18 21:01 BP 132/66 01/23/18 21:01 Pulse Ox 97 01/23/18 21:01 - Medical History PMH: Anemia, Anxiety, Back Problems (herniated disc), Deep Vein Thrombosis, Fractures (rib fx, left shoulder, Left hand 5th digit, Humerus fracture), Gastritis, Seizures, Chronic Pain (left shoulder) Denies: CHF, HIV, Hypercholesterolemia, Chronic Kidney Disease, Sexually Transmitted Disease - Surgical History Surgical History: Endoscopy - Family History Family History: States: Unknown Family Hx - Living Arrangements Living Arrangements: Other - Social History Alcohol: Occasional - Immunization History Hx Tetanus Toxoid Vaccination: Yes Hx Influenza Vaccination: Yes Hx Pneumococcal Vaccination: Yes - Home Medications Home Medications: Ambulatory Orders Medication Instructions Recorded levETIRAcetam [Keppra] 500 mg PO Q12H 10/25/17 Folic Acid 1 mg PO DAILY #30 tab 11/25/17 Thiamine [Vitamin B1 Tab] 100 mg PO DAILY #30 tab 11/25/17 Omeprazole 20 mg PO BID 12/21/17 Butenafine HCl [Lotrimin Ultra] 0.5 gm TP BID #60 cream..g. 01/17/18 - Allergies Allergies/Adverse Reactions: Allergies Allergy/AdvReac Type Severity Reaction Status Date / Time aspirin Allergy NAUSEA Verified 01/21/18 19:17 ibuprofen [From Motrin] Allergy NAUSEA Verified 01/21/18 19:17 naproxen Allergy RASH Verified 01/21/18 19:17 NSAIDS (Non-Steroidal Allergy NAUSEA Verified 01/21/18 19:17 Anti-Inflamma Review of Systems ROS Statement: Except As Marked, All Systems Reviewed And Found Negative Constitutional: Negative for: Fever, Chills Cardiovascular: Negative for: Chest Pain, Palpitations Respiratory: Negative for: Cough Gastrointestinal: Negative for: Nausea, Vomiting, Abdominal Pain Physical Exam - Reviewed Nursing Documentation Reviewed: Yes Vital Signs Reviewed: Yes - Physical Exam Appears: Positive for: Well, Non-toxic, No Acute Distress Head Exam: Positive for: ATRAUMATIC, NORMAL INSPECTION, NORMOCEPHALIC Skin: Positive for: Normal Color, Warm, DRY Eye Exam: Positive for: Normal appearance ENT: Positive for: Normal ENT Inspection Neck: Positive for: Normal, Painless ROM Cardiovascular/Chest: Positive for: Regular Rate, Rhythm Respiratory: Positive for: CNT, Normal Breath Sounds Back: Positive for: Normal Inspection Extremity: Positive for: Normal ROM Neurologic/Psych: Positive for: Alert, Oriented - ECG O2 Sat by Pulse Oximetry: 97 Medical Decision Making Medical Decision Making: Keppra and tylenol given in Er. Disposition - Clinical Impression Clinical Impression: Sprain of shoulder, right - Patient ED Disposition Is Patient to be Admitted: No Counseled Patient/Family Regarding: Diagnosis, Need For Followup - Disposition Disposition: Routine/Home Disposition Time: 21:06 Condition: STABLE Instructions: Shoulder Sprain
== END 2018-01-23 22:35 | disposition home or self-care (01) ==
LOC: H.ER 20:28
DX: S43.401A Unspecified sprain of right shoulder joint, initial encounter (principal); Y92.89 Other specified places as the place of occurrence of the external cause

== ENCOUNTER 2018-01-24 01:39 | Emergency (ER) | payer MEDICAID ==
[2018-01-24 01:39] VITALS: BMI 23.7
[2018-01-24 01:48] VITALS: BP 124/68; PULSE 94; RESP 18; TEMP 98.2; O2SAT 95
--- NOTE | 2018-01-24 02:55 | ED PDOC ---
HPI: General Adult Time Seen by Provider: 01/24/18 02:18 Chief Complaint (Nursing): Seizure Chief Complaint (Provider): no current complaint - Asking for tylenol History Per: Patient History/Exam Limitations: no limitations Additional Complaint(s): Pt reports having a seizure today prior to his last visit a few hours ago. Pt requesting tylenol for arm. Past Medical History Reviewed: Historical Data, Nursing Documentation, Vital Signs Vital Signs: Last Vital Signs Temp 98.2 F 01/24/18 01:45 Pulse 94 H 01/24/18 01:45 Resp 18 01/24/18 01:45 BP 124/68 01/24/18 01:45 Pulse Ox 95 01/24/18 01:45 - Medical History PMH: Anemia, Anxiety, Back Problems (herniated disc), Deep Vein Thrombosis, Fractures (rib fx, left shoulder, Left hand 5th digit, Humerus fracture), Gastritis, Seizures, Chronic Pain (left shoulder) Denies: CHF, HIV, Hypercholesterolemia, Chronic Kidney Disease, Sexually Transmitted Disease - Surgical History Surgical History: Endoscopy - Family History Family History: States: Unknown Family Hx - Living Arrangements Living Arrangements: With Family - Social History Current smoker - smoking cessation education provided: No - Immunization History Hx Tetanus Toxoid Vaccination: Yes Hx Influenza Vaccination: Yes Hx Pneumococcal Vaccination: Yes - Home Medications Home Medications: Ambulatory Orders Medication Instructions Recorded levETIRAcetam [Keppra] 500 mg PO Q12H 10/25/17 Folic Acid 1 mg PO DAILY #30 tab 11/25/17 Thiamine [Vitamin B1 Tab] 100 mg PO DAILY #30 tab 11/25/17 Omeprazole 20 mg PO BID 12/21/17 Butenafine HCl [Lotrimin Ultra] 0.5 gm TP BID #60 cream..g. 01/17/18 - Allergies Allergies/Adverse Reactions: Allergies Allergy/AdvReac Type Severity Reaction Status Date / Time aspirin Allergy NAUSEA Verified 01/24/18 01:44 ibuprofen [From Motrin] Allergy NAUSEA Verified 01/24/18 01:44 naproxen Allergy RASH Verified 01/24/18 01:44 NSAIDS (Non-Steroidal Allergy NAUSEA Verified 01/24/18 01:44 Anti-Inflamma Review of Systems ROS Statement: Except As Marked, All Systems Reviewed And Found Negative Constitutional: Negative for: Fever, Chills Cardiovascular: Negative for: Chest Pain, Palpitations Respiratory: Negative for: Cough, Shortness of Breath Gastrointestinal: Negative for: Nausea, Vomiting, Abdominal Pain, Diarrhea Genitourinary Male: Negative for: Scrotal Pain Musculoskeletal: Negative for: Shoulder Pain Neurological: Positive for: Seizures. Negative for: Weakness, Numbness Physical Exam - Reviewed Nursing Documentation Reviewed: Yes Vital Signs Reviewed: Yes - Physical Exam Appears: Positive for: Well, Non-toxic, No Acute Distress Head Exam: Positive for: ATRAUMATIC, NORMAL INSPECTION, NORMOCEPHALIC Skin: Positive for: Normal Color, Warm, DRY Eye Exam: Positive for: Normal appearance ENT: Positive for: Normal ENT Inspection Neck: Positive for: Normal, Painless ROM Cardiovascular/Chest: Positive for: Regular Rate, Rhythm Respiratory: Positive for: CNT, Normal Breath Sounds Gastrointestinal/Abdominal: Positive for: Normal Exam, Soft Back: Positive for: Normal Inspection Extremity: Positive for: Normal ROM Neurologic/Psych: Positive for: Alert, Oriented - ECG O2 Sat by Pulse Oximetry: 95 Disposition - Clinical Impression Clinical Impression: Malingering - Patient ED Disposition Is Patient to be Admitted: No Counseled Patient/Family Regarding: Diagnosis, Need For Followup - Disposition Disposition: Routine/Home Disposition Time: 02:47 Condition: STABLE
== END 2018-01-24 03:23 | disposition home or self-care (01) ==
LOC: H.ER 01:39
DX: Z76.5 Malingerer [conscious simulation] (principal)

== ENCOUNTER 2018-01-24 11:54 | Emergency (ER) | payer MEDICAID ==
[2018-01-24 11:54] VITALS: BMI 23.7
[2018-01-24 12:22] VITALS: BP 116/61; PULSE 91; RESP 16; TEMP 99; O2SAT 95
--- NOTE | 2018-01-24 12:40 | ED PDOC ---
HPI: Seizure Time Seen by Provider: 01/24/18 12:05 Chief Complaint (Nursing): Seizure Chief Complaint (Provider): Seizure History/Exam Limitations: no limitations Number Of Seizures: One Additional Complaint(s): 52 year old male with a history of seizures, who is well known to this provider and was seen by this provide yesterday presents to the ED s/p "mini seizure" that occurred this morning with no witnesses. Patient states he did not take Kepra this morning. When provider went to evaluate patient, his first request was to have breakfast. He denies any other medical complaints. PMD: Dr. Son Past Medical History Reviewed: Historical Data, Nursing Documentation, Vital Signs Vital Signs: Last Vital Signs Temp 99 F 01/24/18 12:18 Pulse 91 H 01/24/18 12:18 Resp 16 01/24/18 12:18 BP 116/61 01/24/18 12:18 Pulse Ox 95 01/24/18 21:25 - Medical History PMH: Anemia, Anxiety, Back Problems (herniated disc), Deep Vein Thrombosis, Fractures (rib fx, left shoulder, Left hand 5th digit, Humerus fracture), Gastritis, Seizures, Chronic Pain (left shoulder) Denies: CHF, HIV, Hypercholesterolemia, Chronic Kidney Disease, Sexually Transmitted Disease - Surgical History Surgical History: Endoscopy - Family History Family History: States: Unknown Family Hx - Immunization History Hx Tetanus Toxoid Vaccination: Yes Hx Influenza Vaccination: Yes Hx Pneumococcal Vaccination: Yes - Home Medications Home Medications: Ambulatory Orders Medication Instructions Recorded levETIRAcetam [Keppra] 500 mg PO Q12H 10/25/17 Folic Acid 1 mg PO DAILY #30 tab 11/25/17 Thiamine [Vitamin B1 Tab] 100 mg PO DAILY #30 tab 11/25/17 Omeprazole 20 mg PO BID 12/21/17 Butenafine HCl [Lotrimin Ultra] 0.5 gm TP BID #60 cream..g. 01/17/18 - Allergies Allergies/Adverse Reactions: Allergies Allergy/AdvReac Type Severity Reaction Status Date / Time aspirin Allergy NAUSEA Verified 01/24/18 20:36 ibuprofen [From Motrin] Allergy NAUSEA Verified 01/24/18 20:36 naproxen Allergy RASH Verified 01/24/18 20:36 NSAIDS (Non-Steroidal Allergy NAUSEA Verified 01/24/18 20:36 Anti-Inflamma Review of Systems ROS Statement: Except As Marked, All Systems Reviewed And Found Negative Neurological: Positive for: Seizures Physical Exam - Reviewed Nursing Documentation Reviewed: Yes Vital Signs Reviewed: Yes - Physical Exam Appears: Positive for: No Acute Distress Head Exam: Positive for: ATRAUMATIC, NORMOCEPHALIC Skin: Positive for: Normal Color, Warm, DRY Eye Exam: Positive for: EOMI, Normal appearance, PERRL ENT: Positive for: Normal ENT Inspection Cardiovascular/Chest: Positive for: Regular Rate, Rhythm. Negative for: Murmur Respiratory: Positive for: Normal Breath Sounds. Negative for: Accessory Muscle Use, Respiratory Distress Pulses-Radial (L): 2+ Pulses-Radial (R): 2+ Extremity: Positive for: Capillary Refill (less than 2 seconds), Other (Right shoulder in a sling, no skin tenting) Neurologic/Psych: Positive for: Alert, Oriented (x3), Gait (steady and unassisted) - ECG O2 Sat by Pulse Oximetry: 95 (RA) Pulse Ox Interpretation: Normal Medical Decision Making Medical Decision Making: Time: 12:26 Initial Plan: --Kepra 500 mg PO Scribe Attestation: Documented by Sejal Rodriguez, acting as a scribe for Lincoln Olivier PA-C. Provider Scribe Attestation: All medical record entries made by the Scribe were at my direction and personally dictated by me. I have reviewed the chart and agree that the record accurately reflects my personal performance of the history, physical exam, medical decision making, and the department course for this patient. I have also personally directed, reviewed, and agree with the discharge instructions and disposition. Disposition - Clinical Impression Clinical Impression: Seizure disorder - Patient ED Disposition Is Patient to be Admitted: No - Disposition Disposition: Routine/Home Disposition Time: 12:30 Condition: STABLE Instructions: Seizures, Adult (DC) Forms: [employer] (North Korean)
== END 2018-01-24 14:00 | disposition home or self-care (01) ==
LOC: H.ER 11:54
DX: G40.909 Epilepsy, unspecified, not intractable, without status epilepticus (principal)

== ENCOUNTER 2018-01-24 20:12 | Emergency (ER) | payer MEDICAID ==
[2018-01-24 20:12] VITALS: BMI 23.7
--- NOTE | 2018-01-24 20:58 | ED PDOC ---
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 As per REAL Spann RN, patient was drinking in the park earlier today. He has no other complaints. PMD: none provided Past Medical History Reviewed: Historical Data, Nursing Documentation, Vital Signs Vital Signs: Last Vital Signs Temp 99 F 01/24/18 20:36 Pulse 95 H 01/24/18 20:36 Resp 18 01/24/18 20:36 BP 122/63 01/24/18 20:36 Pulse Ox 96 01/24/18 20:59 - Medical History PMH: Anemia, Anxiety, Back Problems (herniated disc), Deep Vein Thrombosis, Fractures (rib fx, left shoulder, Left hand 5th digit, Humerus fracture), Gastritis, Seizures, Chronic Pain (left shoulder) Denies: CHF, HIV, Hypercholesterolemia, Chronic Kidney Disease, Sexually Transmitted Disease - Surgical History Surgical History: Endoscopy - Family History Family History: States: Unknown Family Hx - Social History Alcohol: Other (yes) - Immunization History Hx Tetanus Toxoid Vaccination: Yes Hx Influenza Vaccination: Yes Hx Pneumococcal Vaccination: Yes - Home Medications Home Medications: Ambulatory Orders Medication Instructions Recorded levETIRAcetam [Keppra] 500 mg PO Q12H 10/25/17 Folic Acid 1 mg PO DAILY #30 tab 11/25/17 Thiamine [Vitamin B1 Tab] 100 mg PO DAILY #30 tab 11/25/17 Omeprazole 20 mg PO BID 12/21/17 Butenafine HCl [Lotrimin Ultra] 0.5 gm TP BID #60 cream..g. 01/17/18 - Allergies Allergies/Adverse Reactions: Allergies Allergy/AdvReac Type Severity Reaction Status Date / Time aspirin Allergy NAUSEA Verified 01/24/18 20:36 ibuprofen [From Motrin] Allergy NAUSEA Verified 01/24/18 20:36 naproxen Allergy RASH Verified 01/24/18 20:36 NSAIDS (Non-Steroidal Allergy NAUSEA Verified 01/24/18 20:36 Anti-Inflamma Review of Systems ROS Statement: Except As Marked, All Systems Reviewed And Found Negative Neurological: Positive for: Seizures Physical Exam - Reviewed Nursing Documentation Reviewed: Yes Vital Signs Reviewed: Yes - Physical Exam Appears: Positive for: Non-toxic, No Acute Distress Head Exam: Positive for: ATRAUMATIC, NORMOCEPHALIC Skin: Positive for: Normal Color, Warm, DRY Eye Exam: Positive for: EOMI, Normal appearance, PERRL Extremity: Positive for: Normal ROM (upper and lower) Neurologic/Psych: Positive for: Alert, Gait (unsteady), Other (slurred speech and alcohol on breath) Comments: Shoulder: no skin tenting - ECG O2 Sat by Pulse Oximetry: 96 (RA) Pulse Ox Interpretation: Normal Medical Decision Making Medical Decision Making: Time: 20:46 Initial Plan: --Keppra 500 mg PO --Glucose, Blood POC Scribe Attestation: Documented by Sejal Rodriguez, acting as a scribe for Lincoln Olivier PA-C. ~ Provider Scribe Attestation: All medical record entries made by the Scribe were at my direction and personally dictated by me. I have reviewed the chart and agree that the record accurately reflects my personal performance of the history, physical exam, medical decision making, and the department course for this patient. I have also personally directed, reviewed, and agree with the discharge instructions and disposition. Disposition - Clinical Impression Clinical Impression: Alcohol abuse - Patient ED Disposition Is Patient to be Admitted: Transfer of Care (Signed out to Arthur AYALA pending sobriety) - Disposition Disposition Time: 00:00 Condition: STABLE Forms: [employer] (Mongolian)
--- NOTE | 2018-01-25 01:00 | ED PDOC ---
- ECG O2 Sat by Pulse Oximetry: 96 (RA) - Progress ED Course And Treament: Case endorsed to health science writer from Soy AYALA pending sobriety 1:00 Patient awake, alert, oriented x 3. Ambulating steady gait. Requesting food/ juice. Tolerated tray Patient stable for discharge Return precautions given Disposition - Clinical Impression Clinical Impression: Alcohol abuse - POA Present On Arrival: None - Disposition Disposition: Routine/Home Disposition Time: 01:00 Condition: STABLE Instructions: Alcohol Abuse and Alcoholism (DC)
[2018-01-25 02:06] VITALS: BP 125/74; PULSE 81; RESP 17; TEMP 98; O2SAT 98
== END 2018-01-25 01:45 | disposition home or self-care (01) ==
LOC: H.ER 20:12
DX: F10.129 Alcohol abuse with intoxication, unspecified (principal)

== ENCOUNTER 2018-01-25 09:42 | Emergency (ER) | payer MEDICAID ==
[2018-01-25 09:42] VITALS: BMI 23.7
[2018-01-25 09:55] VITALS: BP 98/56; PULSE 93; RESP 20; TEMP 98.7; O2SAT 97
--- NOTE | 2018-01-25 10:55 | ED PDOC ---
HPI: General Adult Time Seen by Provider: 01/25/18 10:30 Chief Complaint (Nursing): Upper Extremity Problem/Injury Chief Complaint (Provider): right shoulder pain History Per: Patient (52 y/o male h/o seizure request keppra refill. REquests pain medication for shoulder pain. States he was diagnosed with clavicle fx 2 days prior.) Past Medical History Reviewed: Historical Data, Nursing Documentation, Vital Signs Vital Signs: Last Vital Signs Temp 98.7 F 01/25/18 09:52 Pulse 93 H 01/25/18 09:52 Resp 20 01/25/18 09:52 BP 98/56 L 01/25/18 09:52 Pulse Ox 97 01/25/18 09:52 - Medical History PMH: Anemia, Anxiety, Back Problems (herniated disc), Deep Vein Thrombosis, Fractures (rib fx, left shoulder, Left hand 5th digit, Humerus fracture), Gastritis, Seizures, Chronic Pain (left shoulder) Denies: CHF, HIV, Hypercholesterolemia, Chronic Kidney Disease, Sexually Transmitted Disease - Surgical History Surgical History: Endoscopy - Family History Family History: States: Unknown Family Hx - Immunization History Hx Tetanus Toxoid Vaccination: Yes Hx Influenza Vaccination: Yes Hx Pneumococcal Vaccination: Yes - Home Medications Home Medications: Ambulatory Orders Medication Instructions Recorded levETIRAcetam [Keppra] 500 mg PO Q12H 10/25/17 Folic Acid 1 mg PO DAILY #30 tab 11/25/17 Thiamine [Vitamin B1 Tab] 100 mg PO DAILY #30 tab 11/25/17 Omeprazole 20 mg PO BID 12/21/17 Butenafine HCl [Lotrimin Ultra] 0.5 gm TP BID #60 cream..g. 01/17/18 Levetiracetam [Keppra] 500 mg PO BID #28 tablet 01/25/18 - Allergies Allergies/Adverse Reactions: Allergies Allergy/AdvReac Type Severity Reaction Status Date / Time aspirin Allergy NAUSEA Verified 01/24/18 20:36 ibuprofen [From Motrin] Allergy NAUSEA Verified 01/24/18 20:36 naproxen Allergy RASH Verified 01/24/18 20:36 NSAIDS (Non-Steroidal Allergy NAUSEA Verified 01/24/18 20:36 Anti-Inflamma Review of Systems ROS Statement: Except As Marked, All Systems Reviewed And Found Negative Physical Exam - Reviewed Nursing Documentation Reviewed: Yes Vital Signs Reviewed: Yes - Physical Exam Appears: Positive for: Well, Non-toxic, No Acute Distress Head Exam: Positive for: ATRAUMATIC, NORMAL INSPECTION, NORMOCEPHALIC Skin: Positive for: Normal Color, Warm, DRY Eye Exam: Positive for: EOMI, Normal appearance, PERRL ENT: Positive for: Normal ENT Inspection Neck: Positive for: Normal, Painless ROM Cardiovascular/Chest: Positive for: Regular Rate, Rhythm Respiratory: Positive for: CNT, Normal Breath Sounds Gastrointestinal/Abdominal: Positive for: Normal Exam, Soft Back: Positive for: Normal Inspection Extremity: Positive for: Normal ROM, Other (nontender shoulder. nontender clavicle. no deformity noted.) Neurologic/Psych: Positive for: Alert, Oriented - ECG O2 Sat by Pulse Oximetry: 97 - Progress ED Course And Treament: Shoulder xry from 01/23/2018: read no fx d/w patient. keppra 2 week supply faxed to [address] [place] [address] Disposition - Clinical Impression Clinical Impression: Medication refill - Patient ED Disposition Is Patient to be Admitted: No - Disposition Disposition: Routine/Home Disposition Time: 10:53 Condition: FAIR Prescriptions: Levetiracetam [Keppra] 500 mg PO BID #28 tablet Instructions: Where to Get Help Paying for Your Prescriptions, Seizures
== END 2018-01-25 11:15 | disposition home or self-care (01) ==
LOC: H.ER 09:42
DX: Z76.0 Encounter for issue of repeat prescription (principal)

== ENCOUNTER 2018-01-25 18:12 | Emergency (ER) | payer MEDICAID ==
[2018-01-25 18:12] VITALS: BMI 23.7
[2018-01-25 19:12] VITALS: BP 108/58; PULSE 96; RESP 18; TEMP 98.3; O2SAT 95
--- NOTE | 2018-01-25 19:24 | ED PDOC ---
Upper Extremity Pain/Injury Time Seen by Provider: 01/25/18 19:20 Chief Complaint (Nursing): Upper Extremity Problem/Injury Chief Complaint (Provider): shoulder pain History Per: Patient Additional Complaint(s): 52-year-old right-hand dominant male presents with pain to right shoulder status post fall 3 days ago. Patient was seen on January 23 and had x-rays done which showed no fracture or dislocation to right shoulder. He states he is in excruciating pain and has not been taking anything for pain relief. He denies any more recent fall or trauma. PMD: none Past Medical History Reviewed: Historical Data, Nursing Documentation, Vital Signs Vital Signs: Last Vital Signs Temp 98.3 F 01/25/18 19:10 Pulse 96 H 01/25/18 19:10 Resp 18 01/25/18 19:10 BP 108/58 L 01/25/18 19:10 Pulse Ox 95 01/25/18 19:10 - Medical History PMH: Anemia, Anxiety, Back Problems (herniated disc), Deep Vein Thrombosis, Fractures (rib fx, left shoulder, Left hand 5th digit, Humerus fracture), Gastritis, Seizures, Chronic Pain (left shoulder) - Surgical History Surgical History: Endoscopy - Family History Family History: States: No Known Family Hx - Living Arrangements Living Arrangements: Other (non-domiciled) - Social History Current smoker - smoking cessation education provided: Yes Alcohol: > 2 Drinks/Day Drugs: Denies - Home Medications Home Medications: Ambulatory Orders Medication Instructions Recorded levETIRAcetam [Keppra] 500 mg PO Q12H 10/25/17 Folic Acid 1 mg PO DAILY #30 tab 11/25/17 Thiamine [Vitamin B1 Tab] 100 mg PO DAILY #30 tab 11/25/17 Omeprazole 20 mg PO BID 12/21/17 Butenafine HCl [Lotrimin Ultra] 0.5 gm TP BID #60 cream..g. 01/17/18 Ibuprofen [Motrin Tab] 800 mg PO Q8 PRN #20 tab 01/25/18 Levetiracetam [Keppra] 500 mg PO BID #28 tablet 01/25/18 - Allergies Allergies/Adverse Reactions: Allergies Allergy/AdvReac Type Severity Reaction Status Date / Time aspirin Allergy NAUSEA Verified 01/24/18 20:36 ibuprofen [From Motrin] Allergy NAUSEA Verified 01/24/18 20:36 naproxen Allergy RASH Verified 01/24/18 20:36 NSAIDS (Non-Steroidal Allergy NAUSEA Verified 01/24/18 20:36 Anti-Inflamma Review of Systems ROS Statement: Except As Marked, All Systems Reviewed And Found Negative Constitutional: Negative for: Fever Cardiovascular: Negative for: Chest Pain Musculoskeletal: Positive for: Shoulder Pain (right) Physical Exam - Reviewed Nursing Documentation Reviewed: Yes Vital Signs Reviewed: Yes - Physical Exam Appears: Positive for: Well, Non-toxic, No Acute Distress Skin: Positive for: Normal Color. 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 Previous records reviewed, patient has x-ray right shoulder that on 01/23/18 that was read as negative. Plan: PO motrin Rx motrin given. Patient already has sling. He was referred to clinic for follow up. Disposition - Clinical Impression Clinical Impression: Sprain of shoulder, right - Patient ED Disposition Is Patient to be Admitted: No - Disposition Referrals: [facility] [Outside] Disposition: Routine/Home Disposition Time: 19:25 Condition: STABLE Additional Instructions: Take prescription meds as directed as needed for pain. Follow-up with clinic or primary doctor. Prescriptions: Ibuprofen [Motrin Tab] 800 mg PO Q8 PRN #20 tab PRN Reason: Pain, Moderate (4-7) Instructions: Shoulder Sprain
== END 2018-01-25 19:30 | disposition home or self-care (01) ==
LOC: H.ER 18:12
DX: S43.401A Unspecified sprain of right shoulder joint, initial encounter (principal); W19.XXXA Unspecified fall, initial encounter; Y92.89 Other specified places as the place of occurrence of the external cause

== ENCOUNTER 2018-01-26 18:39 | Emergency (ER) | payer MEDICAID ==
[2018-01-26 18:40] VITALS: BMI 23.7
[2018-01-26 18:46] VITALS: O2SAT 99
--- NOTE | 2018-01-26 19:45 | ED PDOC ---
HPI: Seizure Time Seen by Provider: 01/26/18 19:03 Chief Complaint (Nursing): Seizure Chief Complaint (Provider): Seizure History Per: Patient History/Exam Limitations: no limitations Additional Complaint(s): 52 y/o male, well known to this ED and provider, presents to the ED via EMS after being found having a seizure in the park by a bystander prior to arrival. Patient states he had not taken his Keppra today. Denies any active complaints at this time. PMD: No Provider Past Medical History Reviewed: Historical Data, Nursing Documentation, Vital Signs Vital Signs: Last Vital Signs Temp 98.6 F 01/26/18 20:55 Pulse 80 01/26/18 20:55 Resp 20 01/26/18 20:55 BP 130/82 01/26/18 20:55 Pulse Ox 99 01/26/18 20:55 - Medical History PMH: Anemia, Anxiety, Back Problems (herniated disc), Deep Vein Thrombosis, Fractures (rib fx, left shoulder, Left hand 5th digit, Humerus fracture), Gastritis, Seizures, Chronic Pain (left shoulder) Denies: CHF, HIV, Hypercholesterolemia, Chronic Kidney Disease, Sexually Transmitted Disease - Surgical History Surgical History: Endoscopy - Family History Family History: States: Unknown Family Hx - Social History Alcohol: > 2 Drinks/Day - Immunization History Hx Tetanus Toxoid Vaccination: Yes Hx Influenza Vaccination: Yes Hx Pneumococcal Vaccination: Yes - Home Medications Home Medications: Ambulatory Orders Medication Instructions Recorded levETIRAcetam [Keppra] 500 mg PO Q12H 10/25/17 Folic Acid 1 mg PO DAILY #30 tab 11/25/17 Thiamine [Vitamin B1 Tab] 100 mg PO DAILY #30 tab 11/25/17 Omeprazole 20 mg PO BID 12/21/17 Butenafine HCl [Lotrimin Ultra] 0.5 gm TP BID #60 cream..g. 01/17/18 Ibuprofen [Motrin Tab] 800 mg PO Q8 PRN #20 tab 01/25/18 Levetiracetam [Keppra] 500 mg PO BID #28 tablet 01/25/18 - Allergies Allergies/Adverse Reactions: Allergies Allergy/AdvReac Type Severity Reaction Status Date / Time aspirin Allergy NAUSEA Verified 01/27/18 13:24 ibuprofen [From Motrin] Allergy NAUSEA Verified 01/27/18 13:24 naproxen Allergy RASH Verified 01/27/18 13:24 NSAIDS (Non-Steroidal Allergy NAUSEA Verified 01/27/18 13:24 Anti-Inflamma Review of Systems ROS Statement: Except As Marked, All Systems Reviewed And Found Negative Neurological: Positive for: Seizures Physical Exam - Reviewed Nursing Documentation Reviewed: Yes Vital Signs Reviewed: Yes - Physical Exam Appears: Positive for: Non-toxic, No Acute Distress Head Exam: Positive for: ATRAUMATIC, NORMOCEPHALIC Skin: Positive for: Normal Color, Warm, Dry Eye Exam: Positive for: Normal appearance, EOMI, PERRL Neck: Positive for: Normal, Painless ROM Cardiovascular/Chest: Positive for: Regular Rate, Rhythm. Negative for: Bradycardia, Tachycardia Respiratory: Positive for: Normal Breath Sounds. Negative for: Respiratory Distress Gastrointestinal/Abdominal: Positive for: Normal Exam, Soft. Negative for: Tenderness Extremity: Positive for: Normal ROM. Negative for: Pedal Edema, Deformity Neurologic/Psych: Positive for: Alert, Oriented. Negative for: Motor/Sensory Deficits - ECG O2 Sat by Pulse Oximetry: 99 (RA) Pulse Ox Interpretation: Normal Medical Decision Making Medical Decision Making: Time: 1910 Plan: -- Keppra 500 mg PO Time: 2046 -- On re-evaluation, patient is awake, alert, oriented x3, and seen with a steady gait in the ED. Patient reports he would like to leave because his "sister yesterday." Patient is stable for discharge. ____ Scribe Attestation: Documented by Tutu Butler acting as a scribe for Dr. Luisana Escalante MD. Provider Scribe Attestation: All medical record entries made by the Scribe were at my direction and personally dictated by me. I have reviewed the chart and agree that the record accurately reflects my personal performance of the history, physical exam, medical decision making, and the department course for this patient. I have also personally directed, reviewed, and agree with the discharge instructions and disposition. Disposition - Clinical Impression Clinical Impression: Seizure disorder - Disposition Referrals: [facility] [Outside] Disposition: Routine/Home Disposition Time: 20:55 Condition: IMPROVED Instructions: Seizures, Adult (DC) Forms: [employer] (Paraguayan)
[2018-01-26 20:56] VITALS: BP 130/82; PULSE 80; RESP 20; TEMP 98.6
== END 2018-01-26 20:56 | disposition home or self-care (01) ==
LOC: H.ER 18:39
DX: G40.909 Epilepsy, unspecified, not intractable, without status epilepticus (principal)

== ENCOUNTER 2018-01-27 13:06 | Emergency (ER) | payer MEDICAID ==
[2018-01-27 13:06] VITALS: BMI 23.7
[2018-01-27 13:24] VITALS: O2SAT 96
--- NOTE | 2018-01-27 14:07 | ED PDOC ---
HPI: Seizure Time Seen by Provider: 01/27/18 13:33 Chief Complaint (Nursing): Seizure Chief Complaint (Provider): Alcohol Intoxication History Per: Patient History/Exam Limitations: intoxication Additional Complaint(s): 52 year old male arrives to ED stating he "felt that he might have a seizure" just prior to arrival. Patient states he took his Keppra today, as prescribed. Additionally, he reports having right-sided shoulder pain that he had evaluated in ED on 01/23/18 s/p fall with negative findings on xray. Patient is well known to ED staff for history of multiple visits related to ETOH abuse and malingering. Past Medical History Reviewed: Historical Data, Nursing Documentation, Vital Signs Vital Signs: Last Vital Signs Temp 98.1 F 01/27/18 18:07 Pulse 77 01/27/18 18:07 Resp 15 01/27/18 18:07 BP 133/67 01/27/18 18:07 Pulse Ox 96 01/27/18 18:07 - Medical History PMH: Anemia, Anxiety, Back Problems (herniated disc), Deep Vein Thrombosis, Fractures (rib fx, left shoulder, Left hand 5th digit, Humerus fracture), Gastritis, Seizures, Chronic Pain (left shoulder) - Surgical History Surgical History: Endoscopy - Family History Family History: States: Unknown Family Hx - Social History Current smoker - smoking cessation education provided: Yes Alcohol: > 2 Drinks/Day - Home Medications Home Medications: Ambulatory Orders Medication Instructions Recorded levETIRAcetam [Keppra] 500 mg PO Q12H 10/25/17 Folic Acid 1 mg PO DAILY #30 tab 11/25/17 Thiamine [Vitamin B1 Tab] 100 mg PO DAILY #30 tab 11/25/17 Omeprazole 20 mg PO BID 12/21/17 Butenafine HCl [Lotrimin Ultra] 0.5 gm TP BID #60 cream..g. 01/17/18 Ibuprofen [Motrin Tab] 800 mg PO Q8 PRN #20 tab 01/25/18 Levetiracetam [Keppra] 500 mg PO BID #28 tablet 01/25/18 - Allergies Allergies/Adverse Reactions: Allergies Allergy/AdvReac Type Severity Reaction Status Date / Time aspirin Allergy NAUSEA Verified 01/27/18 13:24 ibuprofen [From Motrin] Allergy NAUSEA Verified 01/27/18 13:24 naproxen Allergy RASH Verified 01/27/18 13:24 NSAIDS (Non-Steroidal Allergy NAUSEA Verified 01/27/18 13:24 Anti-Inflamma Review of Systems ROS Statement: Except As Marked, All Systems Reviewed And Found Negative Musculoskeletal: Positive for: Shoulder Pain (right-sided) Physical Exam - Reviewed Nursing Documentation Reviewed: Yes Vital Signs Reviewed: Yes - Physical Exam Comments: GENERAL APPEARANCE: Patient is somnolent, oriented x 3, in no acute distress but intoxicated. (+)alcohol on breath SKIN: Warm, dry; (-) cyanosis HEAD: (-) scalp swelling, (-) scalp tenderness. EYES: (-) nystagmus. ENMT: Mucous membranes moist. Airway patent: (-) stridor. NECK: Supple, FROM HEART AND CARDIOVASCULAR: (-) irregularity; (-) murmur CHEST AND RESPIRATORY: (-) rales, (-) rhonchi, (-) wheezes; breath sounds equal. Respirations even and nonlabored. ABDOMEN: Soft, (-) distention, (-) tenderness, (-) guarding. EXTREMITY: right shoulder with limited ROM secondary to pain (+) diffuse tenderness (-) erythema (-) warmth (-) effusion (-) ecchymosis. Sensation intact throughout. Remainder of upper extremity nontender with FROM. NEURO AND PSYCH: Mental status as above. Affect: flat. EOMI; (-) facial asymmetry; tongue and uvula midline. Gait unsteady, speech slurred. - ECG O2 Sat by Pulse Oximetry: 96 (RA) Pulse Ox Interpretation: Normal Medical Decision Making Medical Decision Making: Initial Impression: Alcohol abuse, Acute shoulder pain Initial Plan: * Alcohol serum * Accucheck * Re-evaluation 1420 Serum Alcohol: 253 Accucheck: 91 1530 Patient sleeping comfortably on re-evaluation. Pending clinical sobriety. 1740 On re-evaluation, patient reports improvement of symptoms. On exam, patient AAOx3, in no acute distress, ambulating in ED with a steady, unassisted gait. Lungs clear to auscultation, cardiac RRR, abdomen soft, non-tender, repeat neuro exam shows no focal findings. Vitals stable. Patient was observed in ED for 4.5 hours with no evidence of neurological deterioration. Lab/Diagnostic results d/w the patient in great detail. Diagnosis of alcohol intoxication, shoulder pain d/w the patient. Based on history, exam and diagnostic results, plan will be for outpatient follow up. Patient instructed to follow-up with pmd / referral provided / the clinic in 1- 2 days without fail. Return to the emergency room at any time for any new or worsening symptoms. Patient states he fully agrees with and understands discharge instructions. States that he agrees with the plan and disposition. Verbalized and repeated discharge instructions and plan. I have given the patient opportunity to ask any additional questions. --- Scribe Attestation: Documented by Dulce Hoffmann, acting as a scribe for Haydee Hayes PA-C. Provider Scribe Attestation: All medical record entries made by the Scribe were at my direction and personally dictated by me. I have reviewed the chart and agree that the record accurately reflects my personal performance of the history, physical exam, medical decision making, and the department course for this patient. I have also personally directed, reviewed, and agree with the discharge instructions and disposition. Disposition - Clinical Impression Clinical Impression: Alcohol abuse, Shoulder pain, acute - Patient ED Disposition Is Patient to be Admitted: No Counseled Patient/Family Regarding: Studies Performed, Diagnosis, Need For Followup - Disposition Referrals: [facility] [Outside] Disposition: Routine/Home Disposition Time: 17:44 Condition: FAIR Additional Instructions: The emergency medical care you received today was directed at your acute symptoms. If you were prescribed any medication, please fill it and take as directed. It may take several days for your symptoms to resolve. Return to the Emergency Department if your symptoms worsen, do not improve, or if you have any other problems. Please contact your doctor in 2 days for re-evaluation and follow up / or call one of the physicians/clinics you have been referred to that are listed on the Patient Visit Information form that is included in your discharge packet. Bring any paperwork you were given at discharge with you along with any medications you are taking to your follow up visit. Our treatment cannot replace ongoing medical care by a primary care provider (PCP) outside of the emergency department. Instructions: Alcohol Abuse and Alcoholism (DC), Effects of Alcohol on Your Health, Shoulder Pain (DC) Forms: [employer] (Occitan) Print Language: SLOVENIAN - POA Present On Arrival: None Results - Lab Results Lab Results: 01/27/18 14:40 Alcohol, Quantitative 253 H
[2018-01-27 18:08] VITALS: BP 133/67; PULSE 77; RESP 15; TEMP 98.1
== END 2018-01-27 18:08 | disposition home or self-care (01) ==
LOC: H.ER 13:06
DX: F10.129 Alcohol abuse with intoxication, unspecified (principal); M25.511 Pain in right shoulder

== ENCOUNTER 2018-01-28 14:29 | Emergency (ER) | payer MEDICAID ==
[2018-01-28 14:30] VITALS: BMI 23.7
--- NOTE | 2018-01-28 15:33 | ED PDOC ---
HPI: Seizure Time Seen by Provider: 01/28/18 15:03 Chief Complaint (Nursing): Seizure Chief Complaint (Provider): Seizure History Per: Patient History/Exam Limitations: no limitations Recent Seizure Activity Began: Unknown Associated Symptoms: denies: Bit Tongue, Incontinence Of Urine, Injury As A Result Of Seizure Activity Additional Complaint(s): 52 year old male with a history of alcohol abuse and seizure disorder presents to the ED for seizure. Patient had an unwitnessed seizure prior to arrival. He is also well known to the ED. He has been found with a bottle in his possession and drinks during stay. Denies head injury, urinary incontinence, tongue bite or alcohol use. PMD: Clinic Past Medical History Reviewed: Historical Data, Nursing Documentation, Vital Signs Vital Signs: Last Vital Signs Temp Pulse 91 H 01/28/18 14:34 Resp 20 01/28/18 14:34 BP 100/52 L 01/28/18 14:34 Pulse Ox 96 01/28/18 15:53 - Medical History PMH: Anemia, Anxiety, Back Problems (herniated disc), Deep Vein Thrombosis, Fractures (rib fx, left shoulder, Left hand 5th digit, Humerus fracture), Gastritis, Seizures, Chronic Pain (left shoulder) Denies: CHF, HIV, Hypercholesterolemia, Chronic Kidney Disease, Sexually Transmitted Disease - Surgical History Surgical History: Endoscopy - Family History Family History: States: Unknown Family Hx - Immunization History Hx Tetanus Toxoid Vaccination: Yes Hx Influenza Vaccination: Yes Hx Pneumococcal Vaccination: Yes - Home Medications Home Medications: Ambulatory Orders Medication Instructions Recorded levETIRAcetam [Keppra] 500 mg PO Q12H 10/25/17 Folic Acid 1 mg PO DAILY #30 tab 11/25/17 Thiamine [Vitamin B1 Tab] 100 mg PO DAILY #30 tab 11/25/17 Omeprazole 20 mg PO BID 12/21/17 Butenafine HCl [Lotrimin Ultra] 0.5 gm TP BID #60 cream..g. 01/17/18 Ibuprofen [Motrin Tab] 800 mg PO Q8 PRN #20 tab 01/25/18 Levetiracetam [Keppra] 500 mg PO BID #28 tablet 01/25/18 - Allergies Allergies/Adverse Reactions: Allergies Allergy/AdvReac Type Severity Reaction Status Date / Time aspirin Allergy NAUSEA Verified 01/27/18 13:24 ibuprofen [From Motrin] Allergy NAUSEA Verified 01/27/18 13:24 naproxen Allergy RASH Verified 01/27/18 13:24 NSAIDS (Non-Steroidal Allergy NAUSEA Verified 01/27/18 13:24 Anti-Inflamma Review of Systems ROS Statement: Except As Marked, All Systems Reviewed And Found Negative (As per HPI, otherwise negative) Genitourinary Male: Negative for: Incontinence Neurological: Negative for: Other (seizure ) Psych: Negative for: Suicidal ideation (homicidal ideation) Physical Exam - Reviewed Nursing Documentation Reviewed: Yes Vital Signs Reviewed: Yes - Physical Exam Appears: Positive for: Non-toxic. Negative for: Well (shriveled ) Head Exam: Positive for: ATRAUMATIC, NORMAL INSPECTION, NORMOCEPHALIC Eye Exam: Positive for: EOMI, PERRL, Conjunctival injection ENT: Positive for: Other (dry mucous membranes) Neck: Positive for: Painless ROM, Supple Cardiovascular/Chest: Positive for: Regular Rate, Rhythm. Negative for: Murmur Respiratory: Positive for: Normal Breath Sounds. Negative for: Wheezing Gastrointestinal/Abdominal: Positive for: Soft. Negative for: Tenderness Back: Positive for: Normal Inspection. Negative for: Decreased ROM Extremity: Positive for: Other (scab wound on extremities) Lymphatic: Negative for: Adenopathy Neurologic/Psych: Positive for: Alert, Other (slurred speech, excessively sleepy ). Negative for: Motor/Sensory Deficits - Laboratory Results Result Diagrams: 01/28/18 16:24 01/28/18 16:24 Interpretation Of Abn Labs: Labs demonstrate anemia, which is chronic. Also demonstrates elevated BAL. - ECG O2 Sat by Pulse Oximetry: 96 (RA) Pulse Ox Interpretation: Normal Medical Decision Making Medical Decision Making: Time: 1515 Initial Impression: weakness Differential Diagnosis includes but is not limited to: alcohol intoxication, dehydration, seizure, anemia, electrolyte abnormalities Initial Plan: --Alcohol serum --CMP --Drug screen --Lipase --Magnesium --Phosphorous --CBC w/ Differential --PTT --Prothrombin Time --Keppra 500mg --air sampling and monitoring --Glucose, Blood, POC --Reevaluation 1700 Pt awake and ambulating without difficulty requesting food. STable for dc. Scribe Attestation: Documented by Jean Claude Whitmore, acting as a scribe for Fatimah Morillo MD Provider Scribe Attestation: All medical record entries made by the Scribe were at my direction and personally dictated by me. I have reviewed the chart and agree that the record accurately reflects my personal performance of the history, physical exam, medical decision making, and the department course for this patient. I have also personally directed, reviewed, and agree with the discharge instructions and disposition. Disposition - Clinical Impression Clinical Impression: Anemia, Alcohol intoxication Counseled Patient/Family Regarding: Studies Performed, Diagnosis, Need For Followup, Rx Given - Disposition Referrals: [facility] [Outside] Alcoholics Anonymous [Outside] Disposition: Routine/Home Disposition Time: 17:36 Condition: IMPROVED Additional Instructions: STOP DRINKING ALCOHOL. IT WILL EVENTUALLY CAUSE YOUR OR SEVERE DISABILITY. FOLLOW UP SOON POSSIBLE WITH CLINIC TAKE YOUR SEIZURE MEDICATIONS PRESCRIBED Instructions: Alcohol Abuse and Alcoholism (DC), Anemia of Chronic Disease (DC) Forms: [employer] (Ukrainian)
[2018-01-28 16:29] LABS: BASO # 0.1 K/uL (0.0-0.2); BASO % 1.3 % (0.0-2.0); EOS # 0.5 K/uL (0.0-0.7); EOS % 12.3 % (0.0-4.0); HEMOGLOBIN 7.6 g/dL (12.0-18.0); LYMPH # 0.7 K/uL (1.0-4.3); LYMPH % 18.7 % (20.0-40.0); MEAN CELL VOLUME 89.3 fl (80.0-94.0); MEAN CORPUSCULAR HGB CONC 33.5 g/dL (33.0-37.0); MEAN PLATELET VOLUME 7.2 fl (7.2-11.7); MONO # 0.6 K/uL (0.0-0.8); MONO % 14.1 % (0.0-10.0); NEUT # 2.1 K/uL (1.8-7.0); NEUT % 53.6 % (50.0-75.0); RBC 2.54 Mil/uL (4.40-5.90); RED CELL DISTRIBUTION WIDTH 21.4 % (11.5-14.5); WHITE BLOOD COUNT 3.9 K/uL (4.8-10.8)
[2018-01-28 16:37] LABS: INR 1.4; PROTHROMBIN TIME 15.9 Seconds (9.8-13.1)
[2018-01-28 17:01] LABS: ALB/GLOB RATIO 0.8 (1.0-2.1); ALBUMIN 2.7 g/dL (3.5-5.0); ALT/SGPT 53 U/L (21-72); AST/SGOT 108 U/L (17-59); BLOOD UREA NITROGEN 26 mg/dl (9-20); CALCIUM 7.9 mg/dL (8.4-10.2); GFR AFRICAN-AMERICAN > 60; GFR NON-AFRICAN AMERICAN > 60; LIPASE 358 U/L (23-300)
[2018-01-28 19:58] VITALS: TEMP 98
[2018-01-28 20:04] VITALS: BP 118/60; PULSE 72; RESP 18; O2SAT 98
== END 2018-01-28 19:08 | disposition home or self-care (01) ==
LOC: H.ER 14:29
DX: F10.129 Alcohol abuse with intoxication, unspecified (principal); D64.9 Anemia, unspecified; G40.909 Epilepsy, unspecified, not intractable, without status epilepticus; F41.9 Anxiety disorder, unspecified; G89.29 Other chronic pain; Z86.718 Personal history of other venous thrombosis and embolism; Z88.6 Allergy status to analgesic agent

== ENCOUNTER 2018-01-29 00:45 | Emergency (ER) | payer MEDICAID ==
[2018-01-29 00:45] VITALS: BMI 23.7
[2018-01-29 00:50] VITALS: BP 130/86; TEMP 98.2; O2SAT 98
--- NOTE | 2018-01-29 01:29 | ED PDOC ---
HPI: Seizure Time Seen by Provider: 01/29/18 00:49 Chief Complaint (Nursing): Seizure Chief Complaint (Provider): seizure History Per: Patient History/Exam Limitations: no limitations Additional Complaint(s): Shreyas Sepulveda is a 52 year old male, with a past medical history of seizures, who presents to the emergency department for evaluation of unwitnessed seizures today. Patient is well known to provider and facility for multiple visits with similar complaints. Patient is known for bed seeking behavior. He denies any physical complaints at this time. No further medical complaints. PMD: None provided. Past Medical History Reviewed: Historical Data, Nursing Documentation, Vital Signs Vital Signs: Last Vital Signs Temp 98.2 F 01/29/18 01:13 Pulse 90 01/29/18 01:13 Resp 16 01/29/18 01:13 BP 130/86 01/29/18 01:13 Pulse Ox 98 01/29/18 01:32 - Medical History PMH: Anemia, Anxiety, Back Problems (herniated disc), Deep Vein Thrombosis, Fractures (rib fx, left shoulder, Left hand 5th digit, Humerus fracture), Gastritis, Seizures, Chronic Pain (left shoulder) Denies: CHF, HIV, Hypercholesterolemia, Chronic Kidney Disease, Sexually Transmitted Disease - Surgical History Surgical History: Endoscopy - Family History Family History: States: Unknown Family Hx - Immunization History Hx Tetanus Toxoid Vaccination: Yes Hx Influenza Vaccination: Yes Hx Pneumococcal Vaccination: Yes - Home Medications Home Medications: Ambulatory Orders Medication Instructions Recorded levETIRAcetam [Keppra] 500 mg PO Q12H 10/25/17 Folic Acid 1 mg PO DAILY #30 tab 11/25/17 Thiamine [Vitamin B1 Tab] 100 mg PO DAILY #30 tab 11/25/17 Omeprazole 20 mg PO BID 12/21/17 Butenafine HCl [Lotrimin Ultra] 0.5 gm TP BID #60 cream..g. 01/17/18 Ibuprofen [Motrin Tab] 800 mg PO Q8 PRN #20 tab 01/25/18 Levetiracetam [Keppra] 500 mg PO BID #28 tablet 01/25/18 - Allergies Allergies/Adverse Reactions: Allergies Allergy/AdvReac Type Severity Reaction Status Date / Time aspirin Allergy NAUSEA Verified 01/27/18 13:24 ibuprofen [From Motrin] Allergy NAUSEA Verified 01/27/18 13:24 naproxen Allergy RASH Verified 01/27/18 13:24 NSAIDS (Non-Steroidal Allergy NAUSEA Verified 01/27/18 13:24 Anti-Inflamma Review of Systems ROS Statement: Except As Marked, All Systems Reviewed And Found Negative Neurological: Positive for: Seizures (unwitnessed) Physical Exam - Reviewed Nursing Documentation Reviewed: Yes Vital Signs Reviewed: Yes - Physical Exam Appears: Positive for: No Acute Distress Head Exam: Positive for: ATRAUMATIC, NORMAL INSPECTION, NORMOCEPHALIC Skin: Positive for: Normal Color, Warm, Dry Eye Exam: Positive for: Normal appearance, EOMI, PERRL Neck: Positive for: Painless ROM Cardiovascular/Chest: Positive for: Regular Rate, Rhythm. Negative for: Murmur Respiratory: Positive for: Normal Breath Sounds. Negative for: Respiratory Distress Gastrointestinal/Abdominal: Positive for: Normal Exam, Soft. Negative for: Tenderness Back: Positive for: Normal Inspection Extremity: Positive for: Normal ROM (upper and lower extremities). Negative for : Deformity, Swelling Neurologic/Psych: Positive for: Alert, Oriented. Negative for: Motor/Sensory Deficits - ECG O2 Sat by Pulse Oximetry: 98 (RA) Pulse Ox Interpretation: Normal Medical Decision Making Medical Decision Making: Time: 00:49 Initial Impression: Malingering Initial Plan: --Reevaluation 05:40 -Patient is medically stable for discharge. Diagnosis seizure and malingering disorder. ----- Scribe Attestation: Documented by Giovany Puri, acting as a scribe for Olaf Fernandez MD. Provider Scribe Attestation: All medical record entries made by the Scribe were at my direction and personally dictated by me. I have reviewed the chart and agree that the record accurately reflects my personal performance of the history, physical exam, medical decision making, and the department course for this patient. I have also personally directed, reviewed, and agree with the discharge instructions and disposition. Disposition - Clinical Impression Clinical Impression: Seizure disorder - Disposition Disposition: Routine/Home Disposition Time: 05:40 Condition: STABLE Instructions: Epilepsy in Adults Forms: [facility] (Lao)
[2018-01-29 06:49] VITALS: PULSE 86; RESP 18
== END 2018-01-29 06:30 | disposition home or self-care (01) ==
LOC: H.ER 00:45
DX: G40.909 Epilepsy, unspecified, not intractable, without status epilepticus (principal); G89.29 Other chronic pain; Z86.718 Personal history of other venous thrombosis and embolism; Z88.6 Allergy status to analgesic agent

== ENCOUNTER 2018-01-29 07:10 | Emergency (ER) | payer MEDICAID ==
[2018-01-29 07:11] VITALS: BMI 23.7
[2018-01-29 07:45] VITALS: BP 118/60; TEMP 97; O2SAT 98
[2018-01-29 08:02] VITALS: PULSE 83; RESP 13
--- NOTE | 2018-01-29 08:33 | ED PDOC ---
HPI: Seizure Time Seen by Provider: 01/29/18 08:16 Chief Complaint (Nursing): Seizure Chief Complaint (Provider): Possible Seizure History Per: Patient History/Exam Limitations: no limitations Additional Complaint(s): 52 year old male with a past medical history of seizures presenting for evaluation. Patient reports seizures in past, but denies any recent seizure. Past Medical History Reviewed: Historical Data, Nursing Documentation, Vital Signs Vital Signs: Last Vital Signs Temp 97 F L 01/29/18 07:44 Pulse 83 01/29/18 07:55 Resp 13 01/29/18 07:55 BP 118/60 01/29/18 07:44 Pulse Ox 98 01/29/18 08:34 - Medical History PMH: Anemia, Anxiety, Back Problems (herniated disc), Deep Vein Thrombosis, Fractures (rib fx, left shoulder, Left hand 5th digit, Humerus fracture), Gastritis, Seizures, Chronic Pain (left shoulder) Denies: CHF, HIV, Hypercholesterolemia, Chronic Kidney Disease, Sexually Transmitted Disease - Surgical History Surgical History: Endoscopy - Family History Family History: States: Unknown Family Hx - Immunization History Hx Tetanus Toxoid Vaccination: Yes Hx Influenza Vaccination: Yes Hx Pneumococcal Vaccination: Yes - Home Medications Home Medications: Ambulatory Orders Medication Instructions Recorded levETIRAcetam [Keppra] 500 mg PO Q12H 10/25/17 Folic Acid 1 mg PO DAILY #30 tab 11/25/17 Thiamine [Vitamin B1 Tab] 100 mg PO DAILY #30 tab 11/25/17 Omeprazole 20 mg PO BID 12/21/17 Butenafine HCl [Lotrimin Ultra] 0.5 gm TP BID #60 cream..g. 01/17/18 Ibuprofen [Motrin Tab] 800 mg PO Q8 PRN #20 tab 01/25/18 Levetiracetam [Keppra] 500 mg PO BID #28 tablet 01/25/18 - Allergies Allergies/Adverse Reactions: Allergies Allergy/AdvReac Type Severity Reaction Status Date / Time aspirin Allergy NAUSEA Verified 01/27/18 13:24 ibuprofen [From Motrin] Allergy NAUSEA Verified 01/27/18 13:24 naproxen Allergy RASH Verified 01/27/18 13:24 NSAIDS (Non-Steroidal Allergy NAUSEA Verified 01/27/18 13:24 Anti-Inflamma Review of Systems ROS Statement: Except As Marked, All Systems Reviewed And Found Negative Physical Exam - Reviewed Nursing Documentation Reviewed: Yes Vital Signs Reviewed: Yes - Physical Exam Appears: Positive for: Non-toxic, No Acute Distress Head Exam: Positive for: ATRAUMATIC, NORMAL INSPECTION, NORMOCEPHALIC Skin: Positive for: Normal Color, Warm, Dry. Negative for: Rash Eye Exam: Positive for: EOMI, Normal appearance, PERRL ENT: Positive for: Normal ENT Inspection Neck: Positive for: Normal, Painless ROM, Supple Cardiovascular/Chest: Positive for: Regular Rate, Rhythm. Negative for: Murmur Respiratory: Positive for: Normal Breath Sounds. Negative for: Respiratory Distress Gastrointestinal/Abdominal: Positive for: Normal Exam, Soft. Negative for: Tenderness Back: Positive for: Normal Inspection. Negative for: L CVA Tenderness, R CVA Tenderness, Vertebral Tenderness Extremity: Positive for: Normal ROM (right shoulder full ROM, old ecchymosis noted). Negative for: Deformity Neurologic/Psych: Positive for: Alert, Oriented (x3). Negative for: Motor/ Sensory Deficits - ECG O2 Sat by Pulse Oximetry: 98 (RA) Pulse Ox Interpretation: Normal Medical Decision Making Medical Decision Makin:31 Plan: -Tylenol 650mg PO -Reevaluation Scribe Attestation: Documented by Emmanuel Mcgarry, acting as a scribe for Jonathan Sousa MD. Provider Scribe Attestation: All medical record entries made by the Scribe were at my direction and personally dictated by me. I have reviewed the chart and agree that the record accurately reflects my personal performance of the history, physical exam, medical decision making, and the department course for this patient. I have also personally directed, reviewed, and agree with the discharge instructions and disposition. Disposition - Clinical Impression Clinical Impression: Seizure disorder - Patient ED Disposition Is Patient to be Admitted: No Counseled Patient/Family Regarding: Diagnosis, Need For Followup - Disposition Referrals: [facility] [Outside] Disposition Time: 09:04 Condition: FAIR Instructions: Seizures, Adult (DC) Forms: [employer] (Martiniquais)
== END 2018-01-29 08:40 | disposition home or self-care (01) ==
LOC: H.ER 07:10
DX: G40.909 Epilepsy, unspecified, not intractable, without status epilepticus (principal); G89.29 Other chronic pain; Z86.718 Personal history of other venous thrombosis and embolism; Z88.6 Allergy status to analgesic agent

== ENCOUNTER 2018-01-29 16:37 | Emergency (ER) | payer MEDICAID ==
[2018-01-29 16:38] VITALS: BMI 23.7
[2018-01-29 16:47] VITALS: O2SAT 99
--- NOTE | 2018-01-29 17:42 | ED PDOC ---
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 Patient is requesting "time to come down from seizure" and a tylenol for a previous fracture. Patient denies any chest pain, fever, chills, shortness off breath, neck pain, or any other complaints. Time/Duration: Prior to Arrival Symptom Onset: Sudden Activities at Onset: Light Context: Other (Restaurant) Past Medical History - Provider Review Nursing Documentation Reviewed: Yes - Infectious Disease Hx of Infectious Diseases: None - Tetanus Immunization Tetanus Immunization: Unknown - Cardiac Hx Congestive Heart Failure: No - Neurological Hx Seizures: Yes - HEENT Hx HEENT Disorder: No - Renal Hx Renal Disorder: No - Endocrine/Metabolic Hx Endocrine Disorders: No - Hematological/Oncological Hx Anemia: Yes - Integumentary Hx Dermatological Disorder: No - Musculoskeletal/Rheumatological Hx Fractures: Yes (rib fx, left shoulder, Left hand 5th digit, Humerus fracture) - Gastrointestinal Hx Gastritis: Yes - Genitourinary/Gynecological Hx Sexually Transmitted Diseases: No - Psychiatric Hx Anxiety: Yes Hx Substance Use: No (denies) - Surgical History Other/Comment: "LEFT FINGER SURGERY" - Anesthesia Hx Anesthesia: Yes Hx Anesthesia Reactions: No Hx Malignant Hyperthermia: No - Suicidal Assessment Feels Threatened In Home Enviroment: No Family/Social History - Physician Review Nursing Documentation Reviewed: Yes Family/Social History: Unknown Family HX Smoking Status: Heavy Smoker > 10 Cigarettes Daily Hx Alcohol Use: Yes Hx Substance Use: No (denies) Allergies/Home Meds Allergies/Adverse Reactions: Allergies aspirin Allergy (Verified 01/27/18 13:24) NAUSEA ibuprofen [From Motrin] Allergy (Verified 01/27/18 13:24) NAUSEA naproxen Allergy (Verified 01/27/18 13:24) RASH NSAIDS (Non-Steroidal Anti-Inflamma Allergy (Verified 01/27/18 13:24) NAUSEA Home Medications: Home Meds Medication Instructions Recorded Confirmed levETIRAcetam [Keppra] 500 mg PO Q12H 10/25/17 12/30/17 Omeprazole 20 mg PO BID 12/21/17 12/30/17 Review of Systems - Physician Review All systems were reviewed & negative as marked: Yes - Review of Systems Constitutional: Normal Eyes: Normal ENT: Normal Respiratory: Normal. absent: SOB, Cough Cardiovascular: Normal. absent: Chest Pain Gastrointestinal: Normal Genitourinary Male: Normal. absent: Dysuria, Frequency Musculoskeletal: Normal. absent: Back Pain, Neck Pain Skin: Normal. absent: Rash Neurological: Normal. absent: Headache, Dizziness Endocrine: Normal Hemo/Lymphatic: Normal Psychiatric: Normal Physical Exam Vital Signs Reviewed: Yes Vital Signs Temp Pulse Resp BP Pulse Ox 01/29/18 16:44 98.2 F 104 H 22 104/60 99 Temperature: Afebrile Blood Pressure: Normal Pulse: Regular Respiratory Rate: Normal Appearance: Positive for: Well-Appearing, Non-Toxic, Comfortable Pain Distress: None Mental Status: Positive for: Alert and Oriented X 3 - Systems Exam Head: Present: Atraumatic, Normocephalic Mouth: Present: Moist Mucous Membranes Neck: Present: Normal Range of Motion Respiratory/Chest: Present: Clear to Auscultation, Good Air Exchange. No: Respiratory Distress, Accessory Muscle Use Cardiovascular: Present: Regular Rate and Rhythm, Normal S1, S2. No: Murmurs Back: Present: Normal Inspection Upper Extremity: Present: Normal Inspection. No: Cyanosis, Edema Lower Extremity: Present: Normal Inspection. No: Edema Neurological: Present: Motor Func Grossly Intact, Gait Normal Skin: Present: Warm, Dry, Normal Color. 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 Plan: -- Tylenol Progress Notes: - Medication Orders Current Medication Orders: Discontinued Medications Acetaminophen (Tylenol 325mg Tab) 650 mg PO ONCE STA Stop: 01/29/18 17:03 Last Admin: 01/29/18 17:06 Dose: 650 mg MAR Pain/Vitals Document 01/29/18 17:06 ALQ (Rec: 01/29/18 17:06 ALQ [id number]) Pain Reassessment Is This A Pain ReAssessment? No Sleep Is patient sleeping during reassessment? No Presence of Pain Presence of Pain Yes Pain Scale Used Pain Scale Used Numeric Location Pain Location Body Site clavicle Description Intermittent Intensity 2 Scale Used Numeric Pain Behavior Irritability Disposition/Present on Arrival - Present on Arrival Any Indicators Present on Arrival: No History of DVT/PE: Yes History of Uncontrolled Diabetes: No Urinary Catheter: No History Surgical Site Infection Following: None - Disposition Have Diagnosis and Disposition been Completed?: Yes Diagnosis: Shoulder injury Disposition Time: 17:55 Patient Plan: Discharge Patient Problems: Current Active Problems Problem Status Onset Seizure disorder Acute Condition: GOOD Forms: [employer] (Citizen [place])
[2018-01-29 19:11] LABS: ALB/GLOB RATIO 0.8 (1.0-2.1); ALBUMIN 2.6 g/dL (3.5-5.0); ALT/SGPT 53 U/L (21-72); AST/SGOT 91 U/L (17-59); BASO # 0.1 K/uL (0.0-0.2); BASO % 0.7 % (0.0-2.0); BLOOD UREA NITROGEN 31 mg/dl (9-20); CALCIUM 7.6 mg/dL (8.4-10.2); EOS # 0.6 K/uL (0.0-0.7); EOS % 7.8 % (0.0-4.0); GFR AFRICAN-AMERICAN > 60; GFR NON-AFRICAN AMERICAN > 60; HEMOGLOBIN 7.9 g/dL (12.0-18.0); LIPASE 237 U/L (23-300); LYMPH # 1.6 K/uL (1.0-4.3); LYMPH % 21.7 % (20.0-40.0); MEAN CELL VOLUME 90.9 fl (80.0-94.0); MEAN CORPUSCULAR HEMOGLOBIN 29.9 pg (27.0-31.0); MEAN CORPUSCULAR HGB CONC 32.8 g/dL (33.0-37.0); MEAN PLATELET VOLUME 7.5 fl (7.2-11.7); MONO % 13.4 % (0.0-10.0); NEUT # 4.1 K/uL (1.8-7.0); NEUT % 56.4 % (50.0-75.0); NRBC % 0.1 % (0.0-0.0); RBC 2.64 Mil/uL (4.40-5.90); RED CELL DISTRIBUTION WIDTH 21.5 % (11.5-14.5)
[2018-01-29 19:13] LABS: WHITE BLOOD COUNT 7.2 K/uL (4.8-10.8)
[2018-01-29 21:25] VITALS: BP 108/62; PULSE 95; RESP 20; TEMP 98.4
--- NOTE | 2018-01-30 18:24 | CARD ---
APPROVED REPORT Date of service: 01/29/2018 EKG Measurement Heart [id number] <Conclusion> Normal sinus rhythm Prolonged QT Abnormal ECG
== END 2018-01-29 21:10 | disposition home or self-care (01) ==
LOC: H.ER 16:37
DX: G40.909 Epilepsy, unspecified, not intractable, without status epilepticus (principal); S49.90XA Unspecified injury of shoulder and upper arm, unspecified arm, initial encounter; F17.210 Nicotine dependence, cigarettes, uncomplicated; Z88.6 Allergy status to analgesic agent; D64.9 Anemia, unspecified
CPT/HCPCS: 80053; 80320; 82140; 83690; 85025; 86850; 86900; 93005; 96374; 99284; C9113; J2405

== ENCOUNTER 2018-01-30 10:24 | Inpatient (IN) | payer MEDICAID, OTHER ==
[2018-01-30 10:24] VITALS: BMI 23.7
[2018-01-30] MEDS ORDERED: Sodium Chloride 0.9% 1,000 ML IV STA (11:05)
--- NOTE | 2018-01-30 11:10 | ED PDOC ---
HPI: Abdomen Time Seen by Provider: 01/30/18 11:08 Chief Complaint (Nursing): Abdominal Pain Chief Complaint (Provider): abd pain History Per: Patient (52 y/o male h/o alcohol abuse/seizure/esophageal ulcer here with vomiting dark brown emesis x 2 days. Notes moderate abdominal pain. Denies any fevers/chills. Was seen in ED yesterday and had initial episode of vomiting upon discharge.) Past Medical History Reviewed: Historical Data, Nursing Documentation, Vital Signs Vital Signs: Last Vital Signs Temp 97.7 F 01/30/18 10:31 Pulse 123 H 01/30/18 10:31 Resp 16 01/30/18 10:31 BP 105/54 L 01/30/18 10:31 Pulse Ox 97 01/30/18 13:17 - Medical History PMH: Anemia, Anxiety, Back Problems (herniated disc), Deep Vein Thrombosis, Fractures (rib fx, left shoulder, Left hand 5th digit, Humerus fracture), Gastritis, Seizures, Chronic Pain (left shoulder) Denies: CHF, HIV, Hypercholesterolemia, Chronic Kidney Disease, Sexually Transmitted Disease - Surgical History Surgical History: Endoscopy - Family History Family History: States: Unknown Family Hx - Immunization History Hx Tetanus Toxoid Vaccination: Yes Hx Influenza Vaccination: Yes Hx Pneumococcal Vaccination: Yes - Home Medications Home Medications: Ambulatory Orders Medication Instructions Recorded levETIRAcetam [Keppra] 500 mg PO Q12H 10/25/17 Folic Acid 1 mg PO DAILY #30 tab 11/25/17 Thiamine [Vitamin B1 Tab] 100 mg PO DAILY #30 tab 11/25/17 Omeprazole 20 mg PO BID 12/21/17 Butenafine HCl [Lotrimin Ultra] 0.5 gm TP BID #60 cream..g. 01/17/18 Ibuprofen [Motrin Tab] 800 mg PO Q8 PRN #20 tab 01/25/18 - Allergies Allergies/Adverse Reactions: Allergies Allergy/AdvReac Type Severity Reaction Status Date / Time aspirin Allergy NAUSEA Verified 01/27/18 13:24 ibuprofen [From Motrin] Allergy NAUSEA Verified 01/27/18 13:24 naproxen Allergy RASH Verified 01/27/18 13:24 NSAIDS (Non-Steroidal Allergy NAUSEA Verified 01/27/18 13:24 Anti-Inflamma Review of Systems ROS Statement: Except As Marked, All Systems Reviewed And Found Negative Physical Exam - Reviewed Nursing Documentation Reviewed: Yes Vital Signs Reviewed: Yes - Physical Exam Appears: Positive for: Well, Non-toxic, No Acute Distress Head Exam: Positive for: ATRAUMATIC, NORMAL INSPECTION, NORMOCEPHALIC Skin: Positive for: Normal Color, Warm, DRY Eye Exam: Positive for: EOMI, Normal appearance, PERRL ENT: Positive for: Normal ENT Inspection Neck: Positive for: Normal, Painless ROM Cardiovascular/Chest: Positive for: Regular Rate, Rhythm Respiratory: Positive for: CNT, Normal Breath Sounds Gastrointestinal/Abdominal: Positive for: Normal Exam, Soft, Tenderness ( generalized tenderness noted) Back: Positive for: Normal Inspection Rectal: Positive for: Other (external hemorrhoids noted. 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 This is because of the severity of symptoms shown, intensity of services needed, and/or the medical risk in this patient being treated as an outpatient.
[2018-01-30] MEDS ORDERED: Multivitamin (MVI) 10 ML, Thiamine 100 MG, Folic Acid 1 MG in Sodium Chloride 0.9% 1,00... IV ONE (11:12)
--- NOTE | 2018-01-30 11:37 | RAD ---
Date of service: 01/30/2018 HISTORY: UPRIGHT please r/o free air COMPARISON: Chest radiograph dated 12/24/2017. FINDINGS: LUNGS: No active pulmonary disease. PLEURA: No significant pleural effusion identified, no pneumothorax apparent. CARDIOVASCULAR: Atherosclerotic aortic calcifications. Cardiomediastinal silhouette within normal meds. OSSEOUS STRUCTURES: Unchanged. VISUALIZED UPPER ABDOMEN: TIPS stent redemonstrated. No evidence of free air. OTHER FINDINGS: None. IMPRESSION: No active disease. No evidence of intraperitoneal free air.
[2018-01-30 12:18] LABS: INR 1.9; PROTHROMBIN TIME 21.7 Seconds (9.8-13.1)
[2018-01-30 12:19] LABS: BASO # 0.1 K/uL (0.0-0.2); BASO % 1.1 % (0.0-2.0); EOS # 0.1 K/uL (0.0-0.7); EOS % 1.2 % (0.0-4.0); LYMPH # 1.3 K/uL (1.0-4.3); LYMPH % 14.7 % (20.0-40.0); MEAN CELL VOLUME 92.8 fl (80.0-94.0); MEAN CORPUSCULAR HGB CONC 32.3 g/dL (33.0-37.0); MEAN PLATELET VOLUME 8.2 fl (7.2-11.7); MONO % 11.8 % (0.0-10.0); NEUT # 6.1 K/uL (1.8-7.0); NEUT % 71.2 % (50.0-75.0); NRBC % 0.1 % (0.0-0.0); RBC 1.9 Mil/uL (4.40-5.90); RED CELL DISTRIBUTION WIDTH 21.8 % (11.5-14.5); WHITE BLOOD COUNT 8.6 K/uL (4.8-10.8)
[2018-01-30 12:21] LABS: PARTIAL THROMBOPLASTIN TIME 23.6 Seconds (25.6-37.1)
[2018-01-30 12:42] LABS: ALB/GLOB RATIO 0.8 (1.0-2.1); ALBUMIN 2.4 g/dL (3.5-5.0); ALT/SGPT 51 U/L (21-72); AST/SGOT 84 U/L (17-59); BLOOD UREA NITROGEN 51 mg/dl (9-20); CALCIUM 7.3 mg/dL (8.4-10.2); GFR NON-AFRICAN AMERICAN > 60; LIPASE 329 U/L (23-300)
[2018-01-30 12:45] LABS: HEMOGLOBIN 5.7 g/dL (12.0-18.0)
[2018-01-30] MEDS ORDERED: Pantoprazole 40 MG in Sodium Chloride 0.9% 100 ML IVPB SCH (13:15)
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
[2018-01-30] MEDS ORDERED: Iohexol 300 100 ML IJ ONE ×2 (13:32→14:22)
[2018-01-30] MEDS ORDERED: Sodium Chloride 0.9% 50 ML IV ONE (13:32)
--- NOTE | 2018-01-30 13:33 | CP.PCM.CON ---
History of Present Illness - History of Present Illness History of Present Illness: 52 YOM with h/o recurrent GIB, cirrhosis and seizure , came to ER with episode of vomiting blood, had seizure and bynum a fall, with rt shoulder bruises. no CP, Sob, . I saw the patient in ER, he was aler and oriented with stable vital but Hb dropped to 5.7, from > 7 just day prior, hence being admitted to ICU for clsoe monitoring and management. Review of Systems - Review of Systems Systems not reviewed;Unavailable: Other - Constitutional Constitutional: Anorexia, Frequent Falls - EENT Eyes: As Per HPI Ears: As Per HPI Nose/Mouth/Throat: As Per HPI - Cardiovascular Cardiovascular: As Per HPI - Respiratory Respiratory: As Per HPI - Gastrointestinal Gastrointestinal: Abdominal Pain, Hematemesis - Genitourinary Genitourinary: As Per HPI Past Patient History - Infectious Disease Hx of Infectious Diseases: None - Tetanus Immunizations Tetanus Immunization: Unknown - Past Medical History & Family History Past Medical History?: Yes - Past Social History Smoking Status: Heavy Smoker > 10 Cigarettes Daily - CARDIAC Hx Congestive Heart Failure: No Hx Hypercholesterolemia: No - NEUROLOGICAL Hx Seizures: Yes - HEENT Hx HEENT Problems: No - RENAL Hx Chronic Kidney Disease: No - ENDOCRINE/METABOLIC Hx Endocrine Disorders: No - HEMATOLOGICAL/ONCOLOGICAL Hx Anemia: Yes Hx Human Immunodeficiency Virus (HIV): No - INTEGUMENTARY Hx Dermatological Problems: No - MUSCULOSKELETAL/RHEUMATOLOGICAL Hx Fractures: Yes (rib fx, left shoulder, Left hand 5th digit, Humerus fracture) - GASTROINTESTINAL Hx Gastritis: Yes - GENITOURINARY/GYNECOLOGICAL Hx Sexually Transmitted Disorders: No - PSYCHIATRIC Hx Anxiety: Yes - SURGICAL HISTORY Other/Comment: "LEFT FINGER SURGERY" - ANESTHESIA Hx Anesthesia: Yes Hx Anesthesia Reactions: No Hx Malignant Hyperthermia: No Meds Allergies/Adverse Reactions: Allergies Allergy/AdvReac Type Severity Reaction Status Date / Time aspirin Allergy NAUSEA Verified 01/27/18 13:24 ibuprofen [From Motrin] Allergy NAUSEA Verified 01/27/18 13:24 naproxen Allergy RASH Verified 01/27/18 13:24 NSAIDS (Non-Steroidal Allergy NAUSEA Verified 01/27/18 13:24 Anti-Inflamma - Medications Medications: Current Medications Pantoprazole Sodium 40 mg/ (Sodium Chloride) 100 mls @ 200 mls/hr IVPB Q5H JANNIE PRN Reason: 80 MG/HR Physical Exam - Head Exam Head Exam: ATRAUMATIC - Eye Exam Eye Exam: Scleral icterus Pupil Exam: NORMAL ACCOMODATION - ENT Exam ENT Exam: Normal Exam - Neck Exam Neck exam: Positive for: Full Rom - Respiratory Exam Respiratory Exam: NORMAL BREATHING PATTERN - Cardiovascular Exam Cardiovascular Exam: REGULAR RHYTHM - GI/Abdominal Exam GI & Abdominal Exam: Soft, Tenderness Results - Vital Signs Recent Vital Signs: Last Vital Signs Temp 97.7 F 01/30/18 10:31 Pulse 123 H 01/30/18 10:31 Resp 16 01/30/18 10:31 BP 105/54 L 01/30/18 10:31 Pulse Ox 97 01/30/18 13:17 - Labs Result Diagrams: 01/30/18 12:00 01/30/18 12:00 Labs: Laboratory Results - last 24 hr 01/30/18 01/30/18 01/30/18 12:00 12:00 12:00 WBC 8.6 RBC 1.90 L Hgb 5.7 L* D Hct 17.7 L MCV 92.8 MCH 30.0 MCHC 32.3 L RDW 21.8 H Plt Count 72 L MPV 8.2 Neut % (Auto) 71.2 Lymph % (Auto) 14.7 L [place] % (Auto) 11.8 H Eos % (Auto) 1.2 Baso % (Auto) 1.1 Neut # (Auto) 6.1 Lymph # (Auto) 1.3 [place] # (Auto) 1.0 H Eos # (Auto) 0.1 Baso # (Auto) 0.1 PT 21.7 H D INR 1.9 APTT 23.6 L Sodium 139 Potassium 5.4 H Chloride 112 H Carbon Dioxide 15 L Anion Gap 17 BUN 51 H Creatinine 0.9 Est GFR ( Amer) > 60 Est GFR (Non-Af Amer) > 60 Random Glucose 100 Calcium 7.3 L Magnesium 1.5 L Total Bilirubin 2.9 H AST 84 H ALT 51 Alkaline Phosphatase 101 Total Protein 5.6 L Albumin 2.4 L Globulin 3.2 Albumin/Globulin Ratio 0.8 L Lipase 329 H Stool Occult Blood Alcohol, Quantitative 57 H Blood Type Antibody Screen BBK History Checked 01/30/18 01/30/18 12:00 12:10 WBC RBC Hgb Hct MCV MCH MCHC RDW Plt Count MPV Neut % (Auto) Lymph % (Auto) [place] % (Auto) Eos % (Auto) Baso % (Auto) Neut # (Auto) Lymph # (Auto) [place] # (Auto) Eos # (Auto) Baso # (Auto) PT INR APTT Sodium Potassium Chloride Carbon Dioxide Anion Gap BUN Creatinine Est GFR ( Amer) Est GFR (Non-Af Amer) Random Glucose Calcium Magnesium Total Bilirubin AST ALT Alkaline Phosphatase Total Protein Albumin Globulin Albumin/Globulin Ratio Lipase Stool Occult Blood Negative Alcohol, Quantitative Blood Type O POSITIVE Antibody Screen Negative BBK History Checked Patient has bt Assessment & Plan - Assessment and Plan (Free Text) Assessment: 1-Upper GIB: hematemesis 2-Blood loss sever anemia 3-Cirrhosis 4-Seizure disorder 5-Frequent falls 6-Rt should bruise, r/o Fx Plan: Admit to ICU 2 unit PRBC transfusion Banana bag, 1000 cc Rt shoulder X-Ray Timmyppra Omeprazone 40 mg IV q 12 H GI consult Ectrotide Monitor H&H , post transfusion and then in AM
[2018-01-30] MEDS ORDERED: Multivitamin (MVI) 10 ML, Thiamine 100 MG, Folic Acid 1 MG in Dextrose 5%/0.45% NS 1,00... IV ONE (13:57)
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
[2018-01-30] MEDS ORDERED: Lactulose 10 gm/15 ml (Rectal Use) PR ONE ×2 (15:32→18:50)
[2018-01-30] MEDS: Lactated Ringer's 1,000 ML IV SCH (16:33)
[2018-01-30] MEDS: Piperacillin/Tazobact 4.5 GM in Sodium Chloride 0.9% 100 ML IVPB SCH (16:39)
[2018-01-30] MEDS: Lidocaine 5% Patch TD SCH (16:40)
[2018-01-30] MEDS: metroNIDAZOLE 500mg/100ml NS 100 ML IVPB SCH (17:33)
--- NOTE | 2018-01-30 18:17 | CARD ---
APPROVED REPORT Date of service: 01/30/2018 EKG Measurement Heart [id number] <Conclusion> Sinus tachycardia Otherwise normal ECG
[2018-01-30] MEDS ORDERED: Magnesium Sulfate 2 gm/50 ml 2 GM/50 ML BAG IVPB ONE (19:00)
[2018-01-30] MEDS: Pantoprazole 40 MG in Sodium Chloride 0.9% 100 ML IVPB SCH (22:15)
[2018-01-30] MEDS: levETIRAcetam 500 MG in Sodium Chloride 0.9% 100 ML IVPB SCH (22:23)
[2018-01-31] MEDS: Piperacillin/Tazobact 4.5 GM in Sodium Chloride 0.9% 100 ML IVPB SCH ×3 (00:03→16:46)
[2018-01-31] MEDS: metroNIDAZOLE 500mg/100ml NS 100 ML IVPB SCH ×3 (00:05→16:45)
[2018-01-31] MEDS ORDERED: Oxycodone/Acetaminophen 5/325 mg Tab PO STA (01:19)
[2018-01-31] MEDS: Pantoprazole 40 MG in Sodium Chloride 0.9% 100 ML IVPB SCH ×5 (02:16→23:41)
[2018-01-31 05:37] LABS: BASO % 0.9 % (0.0-2.0); EOS # 0.2 K/uL (0.0-0.7); LYMPH # 0.7 K/uL (1.0-4.3); LYMPH % 13.8 % (20.0-40.0); MEAN CELL VOLUME 90.3 fl (80.0-94.0); MEAN CORPUSCULAR HEMOGLOBIN 30.7 pg (27.0-31.0); MEAN PLATELET VOLUME 7.8 fl (7.2-11.7); MONO # 0.5 K/uL (0.0-0.8); MONO % 10.2 % (0.0-10.0); NEUT # 3.7 K/uL (1.8-7.0); NEUT % 71.1 % (50.0-75.0); NRBC % 0.1 % (0.0-0.0); RBC 2.01 Mil/uL (4.40-5.90); RED CELL DISTRIBUTION WIDTH 19.4 % (11.5-14.5); WHITE BLOOD COUNT 5.1 K/uL (4.8-10.8)
[2018-01-31 05:47] LABS: HEMOGLOBIN 6.2 g/dL (12.0-18.0)
[2018-01-31 06:05] LABS: ALB/GLOB RATIO 0.7 (1.0-2.1); ALT/SGPT 45 U/L (21-72); AST/SGOT 77 U/L (17-59); BLOOD UREA NITROGEN 45 mg/dl (9-20); GFR NON-AFRICAN AMERICAN > 60
--- NOTE | 2018-01-31 07:26 | CP.CCUPN ---
CCU Subjective - Physician Review Subjective (Free Text): 01/31/18 11:05 The patient was Seen/interviewed and examined by me at the bedside during ICU round, Medical records reviewed and Management issues were discussed and formulated with the house staff. Events reviewed 52 Years old Male with PMHx significant for Alcoholic Liver cirrhosis s/p TIPS ( 2014), severe esophagitis with esophageal ulcer (October 15, 2017), Gastritis, Seizures, Anemia, Anxiety, Back Problems (herniated disc), Deep Vein Thrombosis , Chronic Pain (left shoulder) and Fractures (rib fx, left shoulder, Left hand 5th digit, Humerus fracture). who presented to the ED with complaint of hematemesis, hematochezia and dizziness Abdominal pain x 2 days Patient with recurrent admission and ED visits for decompensated cirrhosis, recurrent GIB and EtOH withdrawal seizures He receive 2U of packed RBC with H/H up from 5.01/04-->6.08/08 Evaluated by GI, Received Protonix 80 mg iv x 1 dose and currently on Protonix drip Scheduled for 2 more units packed RBC BP remains boarderline, Remains NPO, on IV fluids with LR @ 75 cc/H Critical Care Time Spent (in minutes): 38 CCU Objective - Vital Signs / Intake & Output Vital Signs (Last 4 hours): Vital Signs Temp Pulse Resp BP Pulse Ox 01/31/18 06:08 83 19 95/50 L 97 01/31/18 05:00 84 26 H 102/84 95 01/31/18 04:00 98 F 91 H 12 94/65 L 99 Intake and Output (Last 8hrs): Intake & Output 01/30/18 01/31/18 01/31/18 22:59 06:59 14:59 Intake Total 1220 1140 Output Total 300 400 Balance 920 740 Intake: IV 400 490 Intake, Piggyback 170 320 Oral 0 0 Blood Product 650 280 Apheresis Rbc Cp2d As3 Lr 0 0 1st Unit [id number] Red Blood Cells Cpd As1 325 Lr Unit [id number] Other 50 Apheresis Rbc Cp2d As3 Lr 50 1st Unit [id number] Output: Urine 300 200 Urine, Voided 300 200 Stool 200 Other: # Voids Urine, Voided 1 1 # Bowel Movements 1 1 - Physical Exam Physical Exam Limitations: Positive for: Clinical Condition Head: Positive for: Atraumatic, Normocephalic. Negative for: Tenderness, Contusion Pupils: Positive for: PERRL. Negative for: Sluggish, Non-Reactive Extroacular Muscles: Positive for: EOMI Conjunctiva: Positive for: Normal. Negative for: Injected, Icteric Neck: Positive for: Normal Range of Motion, Trachea Midline. Negative for: Meningeal Signs, MIDLINE TENDERNESS, Paraspinal Tenderness, JVD, Lymphadenopathy , Bruit, Other Respiratory/Chest: Positive for: Clear to Auscultation, Good Air Exchange. Negative for: Respiratory Distress, Accessory Muscle Use, Wheezes, Rales, Retracting Cardiovascular: Positive for: Regular Rate and Rhythm, Normal S1, S2, Peripheal Pulses Present. Negative for: Murmurs, Irregular Rhythm, Tachycardic, Bradycardic Abdomen: Positive for: Distention, Normal Bowel Sounds. Negative for: Tenderness, Peritoneal Signs, Rebound, Guarding Rectal: Positive for: Other (external hemorrhoids noted, brown stool) Upper Extremity: Positive for: Normal Inspection, Capillary Refill < 2s. Negative for: Cyanosis, Edema Lower Extremity: Positive for: Normal Inspection, Capillary Refill < 2 s. Negative for: Edema, CALF TENDERNESS Neurological: Positive for: GCS=15, CN II-XII Intact, Speech Normal, Motor Func Grossly Intact, Normal Sensory Function Psychiatric: Positive for: Alert, Oriented x 3 - Medications Active Medications: Active Medications Generic Name Dose Route Start Last Admin Trade Name Freq PRN Reason Stop Dose Admin Levetiracetam 500 mg/ Sodium 105 mls @ 210 mls/hr 01/30/18 21:00 01/30/18 22: 23 Chloride IVPB 210 mls/hr Q12 JANNIE Administration Piperacillin Sod/Tazobactam 100 mls @ 100 mls/hr 01/30/18 17:00 01/31/18 00: 03 Sod 4.5 gm/ Sodium Chloride IVPB 100 mls/hr Q8 JANNIE Administration Protocol Lactated Ringer's 1,000 mls @ 75 mls/hr 01/30/18 16:30 01/30/18 16:33 Lactated Ringer's IV 75 mls/hr .[id number] JANNIE Administration Metronidazole 100 mls @ 100 mls/hr 01/30/18 17:00 01/31/18 00:05 Flagyl 500mg/100ml Ns IVPB 100 mls/hr Q8 JANNIE Administration Protocol Pantoprazole Sodium 40 mg/ 100 mls @ 20 mls/hr 01/30/18 21:45 01/31/18 06:41 Sodium Chloride IVPB 20 mls/hr Q5H JANNIE Administration 8 MG/HR Levetiracetam 500 mg 01/30/18 14:15 Keppra PO Q12H JANNIE Lidocaine 1 ea 01/30/18 14:30 01/30/18 16:40 Lidoderm TD 1 ea DAILY JANNIE Administration Lorazepam 1 mg 01/30/18 13:43 Ativan IVP STAT PRN Symptoms of alcohol withdrawl Ondansetron HCl 4 mg 01/30/18 14:08 01/30/18 16:34 Zofran Inj IVP 4 mg Q6 PRN Administration Nausea/Vomiting - Patient Studies Lab Studies: Lab Studies 01/31/18 01/31/18 01/31/18 Range/Units 04:40 04:40 04:40 WBC 5.1 (4.8-10.8) K/uL RBC 2.01 L (4.40-5.90) Mil/uL Hgb 6.2 L* (12.0-18.0) g/dL Hct 18.2 L (35.0-51.0) % MCV 90.3 D (80.0-94.0) fl MCH 30.7 (27.0-31.0) pg MCHC 34.0 (33.0-37.0) g/dL RDW 19.4 H (11.5-14.5) % Plt Count 61 L (130-400) K/uL MPV 7.8 (7.2-11.7) fl Neut % (Auto) 71.1 (50.0-75.0) % Lymph % (Auto) 13.8 L (20.0-40.0) % [place] % (Auto) 10.2 H (0.0-10.0) % Eos % (Auto) 4.0 (0.0-4.0) % Baso % (Auto) 0.9 (0.0-2.0) % Neut # (Auto) 3.7 (1.8-7.0) K/uL Lymph # (Auto) 0.7 L (1.0-4.3) K/uL [place] # (Auto) 0.5 (0.0-0.8) K/uL Eos # (Auto) 0.2 (0.0-0.7) K/uL Baso # (Auto) 0.0 (0.0-0.2) K/uL PT (9.8-13.1) Seconds INR APTT (25.6-37.1) Seconds Sodium 141 (132-148) mmol/l Potassium 4.0 (3.6-5.0) MMOL/L Chloride 115 H (98-107) mmol/L Carbon Dioxide 19 L (22-30) mmol/L Anion Gap 11 (10-20) BUN 45 H (9-20) mg/dl Creatinine 0.7 L (0.8-1.5) mg/dl Est GFR ( Amer) > 60 Est GFR (Non-Af Amer) > 60 Random Glucose 101 (75-110) mg/dL Lactic Acid (0.7-2.1) MMOL/L Calcium 7.0 L (8.4-10.2) mg/dL Phosphorus 3.5 (2.5-4.5) mg/dl Magnesium 1.9 (1.6-2.3) MG/DL Total Bilirubin 3.4 H (0.2-1.3) mg/dl AST 77 H (17-59) U/L ALT 45 (21-72) U/L Alkaline Phosphatase 100 (38-126) U/L Ammonia 73 H (16-60) umo/L Total Protein 5.1 L (6.3-8.2) G/DL Albumin 2.0 L (3.5-5.0) g/dL Globulin 3.1 (2.2-3.9) gm/dL Albumin/Globulin Ratio 0.7 L (1.0-2.1) Lipase (23-300) U/L Stool Occult Blood (NEGATIVE) Alcohol, Quantitative (0-10) mg/dl Blood Type Antibody Screen Crossmatch BBK History Checked 01/31/18 01/30/18 01/30/18 Range/Units 04:40 14:10 12:10 WBC (4.8-10.8) K/uL RBC (4.40-5.90) Mil/uL Hgb (12.0-18.0) g/dL Hct (35.0-51.0) % MCV (80.0-94.0) fl MCH (27.0-31.0) pg MCHC (33.0-37.0) g/dL RDW (11.5-14.5) % Plt Count (130-400) K/uL MPV (7.2-11.7) fl Neut % (Auto) (50.0-75.0) % Lymph % (Auto) (20.0-40.0) % [place] % (Auto) (0.0-10.0) % Eos % (Auto) (0.0-4.0) % Baso % (Auto) (0.0-2.0) % Neut # (Auto) (1.8-7.0) K/uL Lymph # (Auto) (1.0-4.3) K/uL [place] # (Auto) (0.0-0.8) K/uL Eos # (Auto) (0.0-0.7) K/uL Baso # (Auto) (0.0-0.2) K/uL PT (9.8-13.1) Seconds INR APTT (25.6-37.1) Seconds Sodium (132-148) mmol/l Potassium (3.6-5.0) MMOL/L Chloride (98-107) mmol/L Carbon Dioxide (22-30) mmol/L Anion Gap (10-20) BUN (9-20) mg/dl Creatinine (0.8-1.5) mg/dl Est GFR ( Amer) Est GFR (Non-Af Amer) Random Glucose (75-110) mg/dL Lactic Acid 1.4 (0.7-2.1) MMOL/L Calcium (8.4-10.2) mg/dL Phosphorus (2.5-4.5) mg/dl Magnesium (1.6-2.3) MG/DL Total Bilirubin (0.2-1.3) mg/dl AST (17-59) U/L ALT (21-72) U/L Alkaline Phosphatase (38-126) U/L Ammonia 75 H D (16-60) umo/L Total Protein (6.3-8.2) G/DL Albumin (3.5-5.0) g/dL Globulin (2.2-3.9) gm/dL Albumin/Globulin Ratio (1.0-2.1) Lipase (23-300) U/L Stool Occult Blood Negative (NEGATIVE) Alcohol, Quantitative (0-10) mg/dl Blood Type Antibody Screen Crossmatch BBK History Checked 01/30/18 01/30/18 01/30/18 Range/Units 12:00 12:00 12:00 WBC (4.8-10.8) K/uL RBC (4.40-5.90) Mil/uL Hgb (12.0-18.0) g/dL Hct (35.0-51.0) % MCV (80.0-94.0) fl MCH (27.0-31.0) pg MCHC (33.0-37.0) g/dL RDW (11.5-14.5) % Plt Count (130-400) K/uL MPV (7.2-11.7) fl Neut % (Auto) (50.0-75.0) % Lymph % (Auto) (20.0-40.0) % [place] % (Auto) (0.0-10.0) % Eos % (Auto) (0.0-4.0) % Baso % (Auto) (0.0-2.0) % Neut # (Auto) (1.8-7.0) K/uL Lymph # (Auto) (1.0-4.3) K/uL [place] # (Auto) (0.0-0.8) K/uL Eos # (Auto) (0.0-0.7) K/uL Baso # (Auto) (0.0-0.2) K/uL PT 21.7 H D (9.8-13.1) Seconds INR 1.9 APTT 23.6 L (25.6-37.1) Seconds Sodium 139 (132-148) mmol/l Potassium 5.4 H (3.6-5.0) MMOL/L Chloride 112 H (98-107) mmol/L Carbon Dioxide 15 L (22-30) mmol/L Anion Gap 17 (10-20) BUN 51 H (9-20) mg/dl Creatinine 0.9 (0.8-1.5) mg/dl Est GFR ( Amer) > 60 Est GFR (Non-Af Amer) > 60 Random Glucose 100 (75-110) mg/dL Lactic Acid (0.7-2.1) MMOL/L Calcium 7.3 L (8.4-10.2) mg/dL Phosphorus (2.5-4.5) mg/dl Magnesium 1.5 L (1.6-2.3) MG/DL Total Bilirubin 2.9 H (0.2-1.3) mg/dl AST 84 H (17-59) U/L ALT 51 (21-72) U/L Alkaline Phosphatase 101 (38-126) U/L Ammonia (16-60) umo/L Total Protein 5.6 L (6.3-8.2) G/DL Albumin 2.4 L (3.5-5.0) g/dL Globulin 3.2 (2.2-3.9) gm/dL Albumin/Globulin Ratio 0.8 L (1.0-2.1) Lipase 329 H (23-300) U/L Stool Occult Blood (NEGATIVE) Alcohol, Quantitative 57 H (0-10) mg/dl Blood Type O POSITIVE Antibody Screen Negative Crossmatch See Detail BBK History Checked Patient has bt 01/30/18 Range/Units 12:00 WBC 8.6 (4.8-10.8) K/uL RBC 1.90 L (4.40-5.90) Mil/uL Hgb 5.7 L* D (12.0-18.0) g/dL Hct 17.7 L (35.0-51.0) % MCV 92.8 (80.0-94.0) fl MCH 30.0 (27.0-31.0) pg MCHC 32.3 L (33.0-37.0) g/dL RDW 21.8 H (11.5-14.5) % Plt Count 72 L (130-400) K/uL MPV 8.2 (7.2-11.7) fl Neut % (Auto) 71.2 (50.0-75.0) % Lymph % (Auto) 14.7 L (20.0-40.0) % [place] % (Auto) 11.8 H (0.0-10.0) % Eos % (Auto) 1.2 (0.0-4.0) % Baso % (Auto) 1.1 (0.0-2.0) % Neut # (Auto) 6.1 (1.8-7.0) K/uL Lymph # (Auto) 1.3 (1.0-4.3) K/uL [place] # (Auto) 1.0 H (0.0-0.8) K/uL Eos # (Auto) 0.1 (0.0-0.7) K/uL Baso # (Auto) 0.1 (0.0-0.2) K/uL PT (9.8-13.1) Seconds INR APTT (25.6-37.1) Seconds Sodium (132-148) mmol/l Potassium (3.6-5.0) MMOL/L Chloride (98-107) mmol/L Carbon Dioxide (22-30) mmol/L Anion Gap (10-20) BUN (9-20) mg/dl Creatinine (0.8-1.5) mg/dl Est GFR ( Amer) Est GFR (Non-Af Amer) Random Glucose (75-110) mg/dL Lactic Acid (0.7-2.1) MMOL/L Calcium (8.4-10.2) mg/dL Phosphorus (2.5-4.5) mg/dl Magnesium (1.6-2.3) MG/DL Total Bilirubin (0.2-1.3) mg/dl AST (17-59) U/L ALT (21-72) U/L Alkaline Phosphatase (38-126) U/L Ammonia (16-60) umo/L Total Protein (6.3-8.2) G/DL Albumin (3.5-5.0) g/dL Globulin (2.2-3.9) gm/dL Albumin/Globulin Ratio (1.0-2.1) Lipase (23-300) U/L Stool Occult Blood (NEGATIVE) Alcohol, Quantitative (0-10) mg/dl Blood Type Antibody Screen Crossmatch BBK History Checked Laboratory Results - last 24 hr 01/30/18 01/30/18 01/30/18 12:00 12:00 12:00 WBC 8.6 RBC 1.90 L Hgb 5.7 L* D Hct 17.7 L MCV 92.8 MCH 30.0 MCHC 32.3 L RDW 21.8 H Plt Count 72 L MPV 8.2 Neut % (Auto) 71.2 Lymph % (Auto) 14.7 L [place] % (Auto) 11.8 H Eos % (Auto) 1.2 Baso % (Auto) 1.1 Neut # (Auto) 6.1 Lymph # (Auto) 1.3 [place] # (Auto) 1.0 H Eos # (Auto) 0.1 Baso # (Auto) 0.1 PT 21.7 H D INR 1.9 APTT 23.6 L Sodium 139 Potassium 5.4 H Chloride 112 H Carbon Dioxide 15 L Anion Gap 17 BUN 51 H Creatinine 0.9 Est GFR ( Amer) > 60 Est GFR (Non-Af Amer) > 60 Random Glucose 100 Lactic Acid Calcium 7.3 L Phosphorus Magnesium 1.5 L Total Bilirubin 2.9 H AST 84 H ALT 51 Alkaline Phosphatase 101 Ammonia Total Protein 5.6 L Albumin 2.4 L Globulin 3.2 Albumin/Globulin Ratio 0.8 L Lipase 329 H Stool Occult Blood Alcohol, Quantitative 57 H Blood Type Antibody Screen Crossmatch BBK History Checked 01/30/18 01/30/18 01/30/18 12:00 12:10 14:10 WBC RBC Hgb Hct MCV MCH MCHC RDW Plt Count MPV Neut % (Auto) Lymph % (Auto) [place] % (Auto) Eos % (Auto) Baso % (Auto) Neut # (Auto) Lymph # (Auto) [place] # (Auto) Eos # (Auto) Baso # (Auto) PT INR APTT Sodium Potassium Chloride Carbon Dioxide Anion Gap BUN Creatinine Est GFR ( Amer) Est GFR (Non-Af Amer) Random Glucose Lactic Acid Calcium Phosphorus Magnesium Total Bilirubin AST ALT Alkaline Phosphatase Ammonia 75 H D Total Protein Albumin Globulin Albumin/Globulin Ratio Lipase Stool Occult Blood Negative Alcohol, Quantitative Blood Type O POSITIVE Antibody Screen Negative Crossmatch See Detail BBK History Checked Patient has bt 01/31/18 01/31/18 01/31/18 04:40 04:40 04:40 WBC 5.1 RBC 2.01 L Hgb 6.2 L* Hct 18.2 L MCV 90.3 D MCH 30.7 MCHC 34.0 RDW 19.4 H Plt Count 61 L MPV 7.8 Neut % (Auto) 71.1 Lymph % (Auto) 13.8 L [place] % (Auto) 10.2 H Eos % (Auto) 4.0 Baso % (Auto) 0.9 Neut # (Auto) 3.7 Lymph # (Auto) 0.7 L [place] # (Auto) 0.5 Eos # (Auto) 0.2 Baso # (Auto) 0.0 PT INR APTT Sodium Potassium Chloride Carbon Dioxide Anion Gap BUN Creatinine Est GFR ( Amer) Est GFR (Non-Af Amer) Random Glucose Lactic Acid 1.4 Calcium Phosphorus Magnesium Total Bilirubin AST ALT Alkaline Phosphatase Ammonia 73 H Total Protein Albumin Globulin Albumin/Globulin Ratio Lipase Stool Occult Blood Alcohol, Quantitative Blood Type Antibody Screen Crossmatch BBK History Checked 01/31/18 04:40 WBC RBC Hgb Hct MCV MCH MCHC RDW Plt Count MPV Neut % (Auto) Lymph % (Auto) [place] % (Auto) Eos % (Auto) Baso % (Auto) Neut # (Auto) Lymph # (Auto) [place] # (Auto) Eos # (Auto) Baso # (Auto) PT INR APTT Sodium 141 Potassium 4.0 Chloride 115 H Carbon Dioxide 19 L Anion Gap 11 BUN 45 H Creatinine 0.7 L Est GFR ( Amer) > 60 Est GFR (Non-Af Amer) > 60 Random Glucose 101 Lactic Acid Calcium 7.0 L Phosphorus 3.5 Magnesium 1.9 Total Bilirubin 3.4 H AST 77 H ALT 45 Alkaline Phosphatase 100 Ammonia Total Protein 5.1 L Albumin 2.0 L Globulin 3.1 Albumin/Globulin Ratio 0.7 L Lipase Stool Occult Blood Alcohol, Quantitative Blood Type Antibody Screen Crossmatch BBK History Checked EKG/Cardiology Studies: Cardiology / EKG Studies 01/30/18 11:05 EKG [ELECTROCARDIOGRAM] Stat Comment: Mode Of Transportation: STRETCHER Reason For Exam: tachycardai Fingerstick Blood Sugar Results: 114 Review of Systems - Constitutional Constitutional: absent: Fever, Chills, Sweats, Weakness, Malaise - Cardiovascular Cardiovascular: absent: Chest Pain, Chest Pain at Rest, Chest Pain with Activity - Respiratory Respiratory: absent: Cough, Dyspnea, Hemoptysis, Dyspnea on Exertion - Gastrointestinal Gastrointestinal: Abdominal Pain, Change in Bowel Habits, Coffee Ground Emesis, Constipation, Hematemesis, Hematochezia, Vomiting Critical Care Progress Note - Extremities/Vascular Does the Patient have a Central Venous Catheter?: No Does the Patient need a Central Venous Catheter?: No Does the Patient have a Ty Catheter?: No Does the Patient need a Ty Catheter?: No - Nutrition Nutrition: Nutrition Category Date Time Status NPO Diet [DIET] Diets 01/30/18 Lunch Active Assessment/Plan (1) Upper GI hemorrhage Current Visit: Yes Status: Resolved Priority: High Comment: Total 4U RBC transfusion this admission Continue IVF and Protonix gtts NPO Two large bore peripheral catheters Suplemental O2 Consider octreotide drip Serial CBCs q 8 /HR GI consult appretiated Patient BP and HR stable, if any instability, will place central line DVT PPx: SCD (2) Esophageal varices with bleeding Current Visit: No Status: Acute (3) Abdominal pain Current Visit: Yes Status: Acute Priority: High (4) Alcohol abuse with intoxication Current Visit: Yes Status: Acute Priority: High Comment: Start Folic acid and thiamine Ativan 1 mg IVP Q6 PRN (5) Alcohol withdrawal seizure Current Visit: Yes Status: Acute Priority: Medium Comment: Continue Keppra (6) Bacteremia Current Visit: No Status: Acute Priority: Medium Comment: Follow up cultures Piperacillin Sod/Tazobactam 4.5 gm IVPB Q8 JANNIE ID consulted (7) Encephalopathy acute Current Visit: No Status: Acute Priority: Medium (8) Esophageal and gastric varices Current Visit: Yes Status: Acute Priority: High (9) Generalized seizure Current Visit: Yes Status: Acute Priority: High Comment: Continue keppra 500 q12H (10) Hematemesis Current Visit: Yes Status: Acute Priority: High (11) DVT prophylaxis Current Visit: Yes Status: Acute Priority: High Comment: - DVT PPx: SCD - Assessment and Plan (Free Text) Assessment: - DVT PPx: SCD - Total critical care time 38 minutes
[2018-01-31] MEDS: levETIRAcetam 500 MG in Sodium Chloride 0.9% 100 ML IVPB SCH ×2 (08:01→21:54)
[2018-01-31] MEDS: Lidocaine 5% Patch TD SCH (08:03)
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
[2018-01-31] MEDS: Thiamine 100 mg/ml Inj IM SCH (13:20)
--- NOTE | 2018-01-31 15:19 | CP.PCM.PN ---
Subjective - Date & Time of Evaluation Date of Evaluation: 01/31/18 Time of Evaluation: 09:00 - Subjective Subjective: Patient seen and examined at bedside. He c/o to complain of right shoulder pain as well as abdominal pain. Patient states that he had 3 loose bowel movements since last night's Lactulose enema. He denies chest pain, dizziness, weakness. Objective - Vital Signs/Intake and Output Vital Signs (last 24 hours): Temp Pulse Resp BP Pulse Ox 98.7 F 97 H 12 98/46 L 99 01/31/18 12:54 01/31/18 14:00 01/31/18 14:00 01/31/18 14:00 01/31/18 14:00 Intake and Output: 01/31/18 01/31/18 06:59 18:59 Intake Total 2210 1888 Output Total 700 500 Balance 1510 1388 - Medications Medications: Current Medications Levetiracetam 500 mg/ Sodium (Chloride) 105 mls @ 210 mls/hr IVPB Q12 [facility] Last Admin: 01/31/18 08:01 Dose: 210 mls/hr Piperacillin Sod/Tazobactam (Sod 4.5 gm/ Sodium Chloride) 100 mls @ 100 mls/hr IVPB Q8 JANNIE PRN Reason: Protocol Last Admin: 01/31/18 08:06 Dose: 100 mls/hr Lactated Ringer's (Lactated Ringer's) 1,000 mls @ 75 mls/hr IV .[id number] [facility] Last Admin: 01/30/18 16:33 Dose: 75 mls/hr Metronidazole (Flagyl 500mg/100ml Ns) 100 mls @ 100 mls/hr IVPB Q8 JANNIE PRN Reason: Protocol Last Admin: 01/31/18 08:00 Dose: 100 mls/hr Pantoprazole Sodium 40 mg/ (Sodium Chloride) 100 mls @ 20 mls/hr IVPB Q5H JANNIE PRN Reason: 8 MG/HR Last Admin: 01/31/18 08:04 Dose: 20 mls/hr Folic Acid 1 mg/ Sodium (Chloride) 100.2 mls @ 60 mls/hr IVPB DAILY [facility] Last Admin: 01/31/18 13:20 Dose: 60 mls/hr Fluconazole (Diflucan Iv 100 Mg/50 Ml Ns) 50 mls @ 50 mls/hr IVPB DAILY JANNIE PRN Reason: Protocol Levetiracetam (Keppra) 500 mg PO Q12H [facility] Lidocaine (Lidoderm) 1 ea TD DAILY JANNIE Last Admin: 01/31/18 08:03 Dose: 1 ea Lorazepam (Ativan) 1 mg IVP STAT PRN PRN Reason: Symptoms of alcohol withdrawl Ondansetron HCl (Zofran Inj) 4 mg IVP Q6 PRN PRN Reason: Nausea/Vomiting Last Admin: 01/30/18 16:34 Dose: 4 mg Thiamine HCl (Vitamin B1 Inj) 100 mg IM DAILY JANNIE Last Admin: 01/31/18 13:20 Dose: 100 mg - Labs Labs: 01/31/18 04:40 01/31/18 04:40 PT 21.7 Seconds (9.8-13.1) H D 01/30/18 12:00 INR 1.9 01/30/18 12:00 APTT 23.6 Seconds (25.6-37.1) L 01/30/18 12:00 - Constitutional Appears: No Acute Distress - Head Exam Head Exam: ATRAUMATIC - Eye Exam Eye Exam: Scleral icterus - ENT Exam ENT Exam: Mucous Membranes Moist - Cardiovascular Exam Cardiovascular Exam: REGULAR RHYTHM, RRR, +S1, +S2 - GI/Abdominal Exam GI & Abdominal Exam: Soft, Tenderness, Normal Bowel Sounds. absent: Distended, Guarding, Rigid - Extremities Exam Extremities Exam: absent: Pedal Edema, Tenderness Additional comments: Large right shoulder hematoma improving - Back Exam Back Exam: absent: CVA tenderness (L), CVA tenderness (R) - Neurological Exam Neurological Exam: Alert, Awake, Oriented x3 - Psychiatric Exam Psychiatric exam: Normal Affect, Normal Mood - Skin Skin Exam: Dry, Intact, Warm Assessment and Plan - Assessment and Plan (Free Text) Assessment: 52 y/o alcoholic male w/ pmh significant for unwitnessed seizures, cirrhosis, hepatic encephalograph and upper GI bleeds requiring multiple blood transfusions admitted for a hgb of 5.7 requiring PRBC transfusions. Plan: Hematemesis and abdominal pain -hgb 5.7 --> 6.2 s/p two units of PRBC transfusions. 2 more units ordered/ transfused. Will check H&H. -GI consulted, Dr. Swartz, appreciate recs; plans for EGD once hgb is stable -abdominal/pelvis CT scan 01/30/18: marked ascending colonic wall thickening/ pericolic stranding compatible w/ colitis/typhilitis. Marked thickening of the gastric antrum q/ moderate thickening of 1/2nd portions of duodenum compatible w / antritis/duodenitis. Splenomegaly and hepatic cirrhosis. Patent right hepatic right portal vein TIPS stent. -Upper GI endoscopy 10/15/17 showed 7 mm superficial esophageal ulcer -Colonoscopy (06/2017) Poor prep, internal/external hemorrhoids -EGD (04/2017) - LA Grade C esophagitis with visible vessel at EGJ s/p clip and injection of epi, portal hypertensive gastropathy -will follow CBC -protonix 40 mg IVP BID, Zofran 4 mg IV Q6 PRN Hyperammonemia -Ammonia levels 75--> 73 s/p lactulose 200 gm LA X1 -lactulose 20gm PO BID X 1 ordered -will monitor ammonia levels Typhilitis/colitis/duodenitis -present on abd CT 01/30/2018 -ID consult, recs appreciated -c/w Zosyn 4.5g IV Q8 day #2, started Metronidazole 500mg day#1 and fluconazole IV 100mg/50mL NS day#1 -cdiff toxin a/b pending Thrombocytopenia -chronic -gave Vitamin K 5mg PO once 01/31/2018 -llikely 2/2 to live failure vs bone marrow suppression 2/2 to etoh abuse/liver failure -will monitor w/ follow up labs in AM and trend Hyperkalemia -resolved, K+ 4.0 -likely 2/2 hypomagnesmia (resolved 1.5-->19) -EKG showed sinus tachycardia, otherwise normal Right shoulder pain -s/p fall 01/23/2018 -Right shoulder x-ray negative for fracture -Lidoderm patch 1 TD QD PRN Hx of Seizures -Keppra 500 IV Q12 Hx of ETOH abuse -alcohol level 57 in ED -CIWA protocol Q1hrs -Ativan 1 mg PRN -Banana Bag IV 1L @100mLs/hr Hx of Staph bacteremia -stool, blood culture and urine cultures ordered Diet: -NPO DVT prophylaxis -SCDs Code Status -full code
[2018-01-31] MEDS: Fluconazole IV 100mg/50 ml NS 50 ML IVPB SCH (16:45)
[2018-01-31 18:11] LABS: MEAN CELL VOLUME 90.1 fl (80.0-94.0); MEAN CORPUSCULAR HEMOGLOBIN 29.6 pg (27.0-31.0); MEAN CORPUSCULAR HGB CONC 32.9 g/dL (33.0-37.0); RBC 1.91 Mil/uL (4.40-5.90); RED CELL DISTRIBUTION WIDTH 19.1 % (11.5-14.5); WHITE BLOOD COUNT 4.9 K/uL (4.8-10.8)
[2018-01-31 18:31] LABS: HEMOGLOBIN 5.7 g/dL (12.0-18.0)
--- NOTE | 2018-01-31 18:39 | CP.PCM.PN ---
Subjective - Date & Time of Evaluation Date of Evaluation: 01/31/18 Time of Evaluation: 13:00 - Subjective Subjective: patient with loose maroon stools but no more hematemesis or vomiting. Objective - Vital Signs/Intake and Output Vital Signs (last 24 hours): Temp Pulse Resp BP Pulse Ox 98.4 F 88 16 109/49 L 97 01/31/18 16:00 01/31/18 18:00 01/31/18 18:00 01/31/18 18:00 01/31/18 18:00 Intake and Output: 01/31/18 01/31/18 06:59 18:59 Intake Total 2210 2438 Output Total 700 500 Balance 1510 1938 - Medications Medications: Current Medications Levetiracetam 500 mg/ Sodium (Chloride) 105 mls @ 210 mls/hr IVPB Q12 [facility] Last Admin: 01/31/18 08:01 Dose: 210 mls/hr Piperacillin Sod/Tazobactam (Sod 4.5 gm/ Sodium Chloride) 100 mls @ 100 mls/hr IVPB Q8 JANNIE PRN Reason: Protocol Last Admin: 01/31/18 16:46 Dose: 100 mls/hr Lactated Ringer's (Lactated Ringer's) 1,000 mls @ 75 mls/hr IV .[id number] [facility] Last Admin: 01/30/18 16:33 Dose: 75 mls/hr Metronidazole (Flagyl 500mg/100ml Ns) 100 mls @ 100 mls/hr IVPB Q8 JANNIE PRN Reason: Protocol Last Admin: 01/31/18 16:45 Dose: 100 mls/hr Pantoprazole Sodium 40 mg/ (Sodium Chloride) 100 mls @ 20 mls/hr IVPB Q5H JANNIE PRN Reason: 8 MG/HR Last Admin: 01/31/18 08:04 Dose: 20 mls/hr Folic Acid 1 mg/ Sodium (Chloride) 100.2 mls @ 60 mls/hr IVPB DAILY [facility] Last Admin: 01/31/18 13:20 Dose: 60 mls/hr Fluconazole (Diflucan Iv 100 Mg/50 Ml Ns) 50 mls @ 50 mls/hr IVPB DAILY JANNIE PRN Reason: Protocol Last Admin: 01/31/18 16:45 Dose: 50 mls/hr Levetiracetam (Keppra) 500 mg PO Q12H [facility] Lidocaine (Lidoderm) 1 ea TD DAILY JANNIE Last Admin: 01/31/18 08:03 Dose: 1 ea Lorazepam (Ativan) 1 mg IVP STAT PRN PRN Reason: Symptoms of alcohol withdrawl Ondansetron HCl (Zofran Inj) 4 mg IVP Q6 PRN PRN Reason: Nausea/Vomiting Last Admin: 01/30/18 16:34 Dose: 4 mg Thiamine HCl (Vitamin B1 Inj) 100 mg IM DAILY JANNIE Last Admin: 01/31/18 13:20 Dose: 100 mg - Labs Labs: 01/31/18 18:06 01/31/18 04:40 PT 21.7 Seconds (9.8-13.1) H D 01/30/18 12:00 INR 1.9 01/30/18 12:00 APTT 23.6 Seconds (25.6-37.1) L 01/30/18 12:00 - Head Exam Head Exam: ATRAUMATIC - Eye Exam Eye Exam: Normal appearance - ENT Exam ENT Exam: Mucous Membranes Moist - Neck Exam Neck Exam: Full ROM - Respiratory Exam Respiratory Exam: Clear to Ausculation Bilateral - Cardiovascular Exam Cardiovascular Exam: REGULAR RHYTHM, +S1, +S2 - GI/Abdominal Exam GI & Abdominal Exam: Soft, Normal Bowel Sounds. absent: Tenderness Assessment and Plan (1) GI bleed Assessment & Plan: Noevidence of active bleeding at the moment. Transfuse to Hgb of 8, maintain pantoprazole drip, and upper endoscopy once Hgb is better. Thickening of antrum duodenum, and ascending colon/cecum seen. No fever or elevated WBC. Blood cx preliminary report negative. Patient seen by ID and placed on antibiotics. Status: Acute
[2018-01-31] MEDS ORDERED: Desmopressin 4 mcg/ml Inj (10 ml) IM STA (19:00)
[2018-01-31] MEDS ORDERED: Desmopressin 4 mcg/ml Inj (1 ml) IM STA (19:34)
[2018-01-31] MEDS ORDERED: EPINEPHrine 1 mg/ml (1:1000) Inj ONE (19:38)
[2018-01-31] MEDS ORDERED: Succinylcholine 200 mg/10 ml Inj IV ONE (19:39)
[2018-01-31] MEDS ORDERED: Etomidate 20 mg/10ml Inj IV ONE (19:40)
[2018-01-31] MEDS ORDERED: Propofol 10 mg/ml Inj (20 ML) ONE (19:40)
[2018-01-31] MEDS ORDERED: Lactated Ringer's 1,000 ML IV ONE (19:55)
[2018-01-31] MEDS ORDERED: Labetalol 5 mg/ml Inj 20ML IVP STA (20:17)
--- NOTE | 2018-01-31 21:01 | CP.PCM.PN ---
Subjective - Date & Time of Evaluation Date of Evaluation: 01/31/18 Time of Evaluation: 21:00 - Subjective Subjective: 52 yo man is s/p EGD for GIB. Last H/H was 11/04, endoscopy was done emergently due to lack of response in H/H to blood transfusion. Patient was intubated for the procedure. Procedure happened uneventfully, there was no active bleeding during endoscopy. Blood transfusion was started towards the end of the procedure. After the procedure, patient was extubated. He was alert and awake , but then started to complain of chest pain. Patient then had a maroon bowel movement. EKG was ordered. ACS labs were ordered. Blood transfusion ongoing. Will speak with hospitalist regarding this event. Objective - Vital Signs/Intake and Output Vital Signs (last 24 hours): Temp Pulse Resp BP Pulse Ox 98.7 F 125 H 21 139/72 100 01/31/18 20:35 01/31/18 20:35 01/31/18 20:35 01/31/18 20:35 01/31/18 20:00 Intake and Output: 01/31/18 02/01/18 18:59 06:59 Intake Total 2438 295 Output Total 500 100 Balance 1938 195 - Medications Medications: Current Medications Levetiracetam 500 mg/ Sodium (Chloride) 105 mls @ 210 mls/hr IVPB Q12 [facility] Last Admin: 01/31/18 08:01 Dose: 210 mls/hr Piperacillin Sod/Tazobactam (Sod 4.5 gm/ Sodium Chloride) 100 mls @ 100 mls/hr IVPB Q8 JANNIE PRN Reason: Protocol Last Admin: 01/31/18 16:46 Dose: 100 mls/hr Lactated Ringer's (Lactated Ringer's) 1,000 mls @ 75 mls/hr IV .[id number] [facility] Last Admin: 01/30/18 16:33 Dose: 75 mls/hr Metronidazole (Flagyl 500mg/100ml Ns) 100 mls @ 100 mls/hr IVPB Q8 JANNIE PRN Reason: Protocol Last Admin: 01/31/18 16:45 Dose: 100 mls/hr Pantoprazole Sodium 40 mg/ (Sodium Chloride) 100 mls @ 20 mls/hr IVPB Q5H JANNIE PRN Reason: 8 MG/HR Last Admin: 01/31/18 19:28 Dose: 20 mls/hr Folic Acid 1 mg/ Sodium (Chloride) 100.2 mls @ 60 mls/hr IVPB DAILY JANNIE Last Admin: 01/31/18 13:20 Dose: 60 mls/hr Fluconazole (Diflucan Iv 100 Mg/50 Ml Ns) 50 mls @ 50 mls/hr IVPB DAILY JANNIE PRN Reason: Protocol Last Admin: 01/31/18 16:45 Dose: 50 mls/hr Levetiracetam (Keppra) 500 mg PO Q12H [facility] Lidocaine (Lidoderm) 1 ea TD DAILY JANNIE Last Admin: 01/31/18 08:03 Dose: 1 ea Lorazepam (Ativan) 1 mg IVP STAT PRN PRN Reason: Symptoms of alcohol withdrawl Ondansetron HCl (Zofran Inj) 4 mg IVP Q6 PRN PRN Reason: Nausea/Vomiting Last Admin: 01/30/18 16:34 Dose: 4 mg Thiamine HCl (Vitamin B1 Inj) 100 mg IM DAILY JANNIE Last Admin: 01/31/18 13:20 Dose: 100 mg - Labs Labs: 01/31/18 18:06 01/31/18 04:40 PT 21.7 Seconds (9.8-13.1) H D 01/30/18 12:00 INR 1.9 01/30/18 12:00 APTT 23.6 Seconds (25.6-37.1) L 01/30/18 12:00
[2018-01-31 21:30] LABS: MEAN CORPUSCULAR HEMOGLOBIN 29.2 pg (27.0-31.0); MEAN CORPUSCULAR HGB CONC 32.4 g/dL (33.0-37.0); RBC 2.22 Mil/uL (4.40-5.90); RED CELL DISTRIBUTION WIDTH 20.2 % (11.5-14.5); WHITE BLOOD COUNT 6.6 K/uL (4.8-10.8)
[2018-01-31 21:37] LABS: INR 2.1; PROTHROMBIN TIME 23.6 Seconds (9.8-13.1)
[2018-01-31 21:39] LABS: HEMOGLOBIN 6.5 g/dL (12.0-18.0)
[2018-01-31 21:40] LABS: PARTIAL THROMBOPLASTIN TIME 28.8 Seconds (25.6-37.1)
[2018-01-31 21:42] LABS: ALB/GLOB RATIO 0.7 (1.0-2.1); ALBUMIN 1.8 g/dL (3.5-5.0); ALT/SGPT 51 U/L (21-72); AST/SGOT 67 U/L (17-59); BLOOD UREA NITROGEN 37 mg/dl (9-20); CALCIUM 6.7 mg/dL (8.4-10.2); GFR NON-AFRICAN AMERICAN > 60
[2018-02-01] MEDS: metroNIDAZOLE 500mg/100ml NS 100 ML IVPB SCH ×3 (00:01→16:03)
[2018-02-01] MEDS: Piperacillin/Tazobact 4.5 GM in Sodium Chloride 0.9% 100 ML IVPB SCH ×3 (00:02→16:05)
[2018-02-01] MEDS: Pantoprazole 40 MG in Sodium Chloride 0.9% 100 ML IVPB SCH ×2 (04:37→14:12)
[2018-02-01 06:04] LABS: BLOOD UREA NITROGEN 35 mg/dl (9-20); CALCIUM 6.8 mg/dL (8.4-10.2); GFR NON-AFRICAN AMERICAN > 60
[2018-02-01 06:05] LABS: BASO % 0.5 % (0.0-2.0); EOS # 0.2 K/uL (0.0-0.7); EOS % 5.9 % (0.0-4.0); LYMPH # 0.8 K/uL (1.0-4.3); MEAN CELL VOLUME 87.6 fl (80.0-94.0); MEAN CORPUSCULAR HEMOGLOBIN 29.8 pg (27.0-31.0); MEAN PLATELET VOLUME 7.4 fl (7.2-11.7); MONO # 0.5 K/uL (0.0-0.8); MONO % 12.9 % (0.0-10.0); NEUT # 2.1 K/uL (1.8-7.0); NEUT % 58.7 % (50.0-75.0); NRBC % 0.1 % (0.0-0.0); RBC 2.1 Mil/uL (4.40-5.90); WHITE BLOOD COUNT 3.6 K/uL (4.8-10.8)
[2018-02-01 06:18] LABS: HEMOGLOBIN 6.2 g/dL (12.0-18.0)
[2018-02-01] MEDS: Lactated Ringer's 1,000 ML IV SCH (07:02)
[2018-02-01] MEDS: levETIRAcetam 500 MG in Sodium Chloride 0.9% 100 ML IVPB SCH ×2 (08:13→20:16)
[2018-02-01] MEDS: Lidocaine 5% Patch TD SCH (08:15)
[2018-02-01] MEDS: Thiamine 100 mg/ml Inj IM SCH (08:16)
--- NOTE | 2018-02-01 08:18 | CP.CCUPN ---
CCU Subjective - Physician Review Subjective (Free Text): 01/31/18 11:05 The patient was Seen/interviewed and examined by me at the bedside during ICU round, Medical records reviewed and Management issues were discussed and formulated with the house staff. Events reviewed 52 Years old Male with PMHx significant for Alcoholic Liver cirrhosis s/p TIPS ( 2014), severe esophagitis with esophageal ulcer (October 15, 2017), Gastritis, Seizures, Anemia, Anxiety, Back Problems (herniated disc), Deep Vein Thrombosis , Chronic Pain (left shoulder) and Fractures (rib fx, left shoulder, Left hand 5th digit, Humerus fracture). who presented to the ED with complaint of hematemesis, hematochezia and dizziness Abdominal pain x 2 days Patient with recurrent admission and ED visits for decompensated cirrhosis, recurrent GIB and EtOH withdrawal seizures So far he receive total of 6U of packed RBC with H/H only up from .01/04-->6. Evaluated by GI, underwent urgent EJD yesterday 01/31/2018 showing ulcerative duodentitis, grade II esophageal varices, alcoholic gastritis, duodenal ulcers with No evidence of active bleeding Received Protonix 80 mg iv x 1 dose and currently on Protonix drip Scheduled for 2 more units packed RBC BP remains boarderline, Remains NPO, on IV fluids with LR @ 75 cc/H Afebrile, NSR on the monitor + loose maroon stools 02/01/18 11:55 abdominal/pelvis CT scan 01/30/18: marked ascending colonic wall thickening/ pericolic stranding compatible w/ colitis/typhilitis. Marked thickening of the gastric antrum q/ moderate thickening of 1/2nd portions of duodenum compatible w / antritis/duodenitis. -Splenomegaly and hepatic cirrhosis. Patent right hepatic right portal vein TIPS stent CCU Objective - Vital Signs / Intake & Output Vital Signs (Last 4 hours): Vital Signs Temp Pulse Resp BP Pulse Ox 02/01/18 08:00 98.3 F 68 14 94/46 L 87 L 02/01/18 06:00 94 H 15 94/51 L 95 02/01/18 05:00 77 13 89/50 L 96 Intake and Output (Last 8hrs): Intake & Output 01/31/18 02/01/18 02/01/18 22:59 06:59 14:59 Intake Total 1660 1399 Output Total 500 500 Balance 1160 899 Intake: IV 650 640 Intake, Piggyback 410 340 Oral 0 Blood Product 600 419 Output: Urine 500 500 Urine, Voided 500 500 Other: # Voids Urine, Voided 1 1 # Bowel Movements 0 1 - Physical Exam Head: Positive for: Atraumatic, Normocephalic. Negative for: Tenderness, Contusion Pupils: Positive for: PERRL. Negative for: Sluggish, Non-Reactive Extroacular Muscles: Positive for: EOMI Conjunctiva: Positive for: Normal. Negative for: Injected, Icteric Neck: Positive for: Normal Range of Motion, Trachea Midline. Negative for: Meningeal Signs, MIDLINE TENDERNESS, Paraspinal Tenderness, JVD, Lymphadenopathy , Bruit, Other Respiratory/Chest: Positive for: Clear to Auscultation, Good Air Exchange. Negative for: Respiratory Distress, Accessory Muscle Use, Wheezes, Rales, Retracting Cardiovascular: Positive for: Regular Rate and Rhythm, Normal S1, S2, Peripheal Pulses Present. Negative for: Murmurs, Irregular Rhythm, Tachycardic, Bradycardic Abdomen: Positive for: Distention, Normal Bowel Sounds. Negative for: Tenderness, Peritoneal Signs, Rebound, Guarding Rectal: Positive for: Other (external hemorrhoids noted, brown stool) Upper Extremity: Positive for: Normal Inspection, Capillary Refill < 2s. Negative for: Cyanosis, Edema Lower Extremity: Positive for: Normal Inspection, Capillary Refill < 2 s. Negative for: Edema, CALF TENDERNESS Neurological: Positive for: GCS=15, CN II-XII Intact, Speech Normal, Motor Func Grossly Intact, Normal Sensory Function Psychiatric: Positive for: Alert, Oriented x 3 - Medications Active Medications: Active Medications Generic Name Dose Route Start Last Admin Trade Name Freq PRN Reason Stop Dose Admin Levetiracetam 500 mg/ Sodium 105 mls @ 210 mls/hr 01/30/18 21:00 01/31/18 21: 54 Chloride IVPB 210 mls/hr Q12 JANNIE Administration Piperacillin Sod/Tazobactam 100 mls @ 100 mls/hr 01/30/18 17:00 02/01/18 00: 02 Sod 4.5 gm/ Sodium Chloride IVPB 100 mls/hr Q8 JANNIE Administration Protocol Lactated Ringer's 1,000 mls @ 75 mls/hr 01/30/18 16:30 02/01/18 07:02 Lactated Ringer's IV 75 mls/hr .[id number] JANNIE Administration Metronidazole 100 mls @ 100 mls/hr 01/30/18 17:00 02/01/18 00:01 Flagyl 500mg/100ml Ns IVPB 100 mls/hr Q8 JANNIE Administration Protocol Pantoprazole Sodium 40 mg/ 100 mls @ 20 mls/hr 01/30/18 21:45 02/01/18 04:37 Sodium Chloride IVPB 20 mls/hr Q5H JANNIE Administration 8 MG/HR Folic Acid 1 mg/ Sodium 100.2 mls @ 60 mls/hr 01/31/18 11:45 01/31/18 13:20 Chloride IVPB 60 mls/hr DAILY JANNIE Administration Fluconazole 50 mls @ 50 mls/hr 01/31/18 14:15 01/31/18 16:45 Diflucan Iv 100 Mg/50 Ml Ns IVPB 50 mls/hr DAILY JANNIE Administration Protocol Levetiracetam 500 mg 01/30/18 14:15 Keppra PO Q12H JANNIE Lidocaine 1 ea 01/30/18 14:30 01/31/18 08:03 Lidoderm TD 1 ea DAILY JANNIE Administration Lorazepam 1 mg 01/30/18 13:43 Ativan IVP STAT PRN Symptoms of alcohol withdrawl Ondansetron HCl 4 mg 01/30/18 14:08 01/30/18 16:34 Zofran Inj IVP 4 mg Q6 PRN Administration Nausea/Vomiting Thiamine HCl 100 mg 01/31/18 11:45 01/31/18 13:20 Vitamin B1 Inj IM 100 mg DAILY JANNIE Administration - Patient Studies Lab Studies: Microbiology Studies 01/30/18 14:00 Blood Culture - Preliminary Blood-Venous NO GROWTH AFTER 24 HOURS Lab Studies 02/01/18 02/01/18 02/01/18 Range/Units 05:46 04:40 04:00 WBC 3.6 L (4.8-10.8) K/uL RBC 2.10 L (4.40-5.90) Mil/uL Hgb 6.2 L* (12.0-18.0) g/dL Hct 18.4 L (35.0-51.0) % MCV 87.6 D (80.0-94.0) fl MCH 29.8 (27.0-31.0) pg MCHC 34.0 (33.0-37.0) g/dL RDW 20.0 H (11.5-14.5) % Plt Count 50 L D (130-400) K/uL MPV 7.4 (7.2-11.7) fl Neut % (Auto) 58.7 (50.0-75.0) % Lymph % (Auto) 22.0 (20.0-40.0) % Tama % (Auto) 12.9 H (0.0-10.0) % Eos % (Auto) 5.9 H (0.0-4.0) % Baso % (Auto) 0.5 (0.0-2.0) % Neut # (Auto) 2.1 (1.8-7.0) K/uL Lymph # (Auto) 0.8 L (1.0-4.3) K/uL Tama # (Auto) 0.5 (0.0-0.8) K/uL Eos # (Auto) 0.2 (0.0-0.7) K/uL Baso # (Auto) 0.0 (0.0-0.2) K/uL PT (9.8-13.1) Seconds INR APTT (25.6-37.1) Seconds Sodium 139 (132-148) mmol/l Potassium 3.4 L (3.6-5.0) MMOL/L Chloride 115 H (98-107) mmol/L Carbon Dioxide 20 L (22-30) mmol/L Anion Gap 7 L (10-20) BUN 35 H (9-20) mg/dl Creatinine 0.7 L (0.8-1.5) mg/dl Est GFR ( Amer) > 60 Est GFR (Non-Af Amer) > 60 POC Glucose (mg/dL) (65-110) mg/dL Random Glucose 84 (75-110) mg/dL Calcium 6.8 L (8.4-10.2) mg/dL Total Bilirubin (0.2-1.3) mg/dl AST (17-59) U/L ALT (21-72) U/L Alkaline Phosphatase (38-126) U/L Ammonia < 9 L (16-60) umo/L Troponin I 0.0740 (0.00-0.120) ng/mL Total Protein (6.3-8.2) G/DL Albumin (3.5-5.0) g/dL Globulin (2.2-3.9) gm/dL Albumin/Globulin Ratio (1.0-2.1) Stool Occult Blood (NEGATIVE) Blood Type Antibody Screen Crossmatch BBK History Checked 01/31/18 01/31/18 01/31/18 Range/Units 21:03 21:03 21:03 WBC 6.6 (4.8-10.8) K/uL RBC 2.22 L (4.40-5.90) Mil/uL Hgb 6.5 L* (12.0-18.0) g/dL Hct 20.0 L (35.0-51.0) % MCV 90.0 (80.0-94.0) fl MCH 29.2 (27.0-31.0) pg MCHC 32.4 L (33.0-37.0) g/dL RDW 20.2 H (11.5-14.5) % Plt Count 91 L D (130-400) K/uL MPV (7.2-11.7) fl Neut % (Auto) (50.0-75.0) % Lymph % (Auto) (20.0-40.0) % Tama % (Auto) (0.0-10.0) % Eos % (Auto) (0.0-4.0) % Baso % (Auto) (0.0-2.0) % Neut # (Auto) (1.8-7.0) K/uL Lymph # (Auto) (1.0-4.3) K/uL Tama # (Auto) (0.0-0.8) K/uL Eos # (Auto) (0.0-0.7) K/uL Baso # (Auto) (0.0-0.2) K/uL PT 23.6 H (9.8-13.1) Seconds INR 2.1 APTT 28.8 (25.6-37.1) Seconds Sodium 140 (132-148) mmol/l Potassium 3.8 (3.6-5.0) MMOL/L Chloride 118 H (98-107) mmol/L Carbon Dioxide 17 L (22-30) mmol/L Anion Gap 9 L (10-20) BUN 37 H (9-20) mg/dl Creatinine 0.7 L (0.8-1.5) mg/dl Est GFR ( Amer) > 60 Est GFR (Non-Af Amer) > 60 POC Glucose (mg/dL) (65-110) mg/dL Random Glucose 119 H (75-110) mg/dL Calcium 6.7 L (8.4-10.2) mg/dL Total Bilirubin 3.4 H (0.2-1.3) mg/dl AST 67 H (17-59) U/L ALT 51 (21-72) U/L Alkaline Phosphatase 88 (38-126) U/L Ammonia (16-60) umo/L Troponin I < 0.0120 (0.00-0.120) ng/mL Total Protein 4.6 L (6.3-8.2) G/DL Albumin 1.8 L (3.5-5.0) g/dL Globulin 2.8 (2.2-3.9) gm/dL Albumin/Globulin Ratio 0.7 L (1.0-2.1) Stool Occult Blood (NEGATIVE) Blood Type Antibody Screen Crossmatch BBK History Checked 01/31/18 01/30/18 01/30/18 Range/Units 18:06 12:00 10:42 WBC 4.9 (4.8-10.8) K/uL RBC 1.91 L (4.40-5.90) Mil/uL Hgb 5.7 L* (12.0-18.0) g/dL Hct 17.2 L (35.0-51.0) % MCV 90.1 (80.0-94.0) fl MCH 29.6 (27.0-31.0) pg MCHC 32.9 L (33.0-37.0) g/dL RDW 19.1 H (11.5-14.5) % Plt Count 67 L (130-400) K/uL MPV (7.2-11.7) fl Neut % (Auto) (50.0-75.0) % Lymph % (Auto) (20.0-40.0) % Tama % (Auto) (0.0-10.0) % Eos % (Auto) (0.0-4.0) % Baso % (Auto) (0.0-2.0) % Neut # (Auto) (1.8-7.0) K/uL Lymph # (Auto) (1.0-4.3) K/uL Tama # (Auto) (0.0-0.8) K/uL Eos # (Auto) (0.0-0.7) K/uL Baso # (Auto) (0.0-0.2) K/uL PT (9.8-13.1) Seconds INR APTT (25.6-37.1) Seconds Sodium (132-148) mmol/l Potassium (3.6-5.0) MMOL/L Chloride (98-107) mmol/L Carbon Dioxide (22-30) mmol/L Anion Gap (10-20) BUN (9-20) mg/dl Creatinine (0.8-1.5) mg/dl Est GFR ( Amer) Est GFR (Non-Af Amer) POC Glucose (mg/dL) 114 H (65-110) mg/dL Random Glucose (75-110) mg/dL Calcium (8.4-10.2) mg/dL Total Bilirubin (0.2-1.3) mg/dl AST (17-59) U/L ALT (21-72) U/L Alkaline Phosphatase (38-126) U/L Ammonia (16-60) umo/L Troponin I (0.00-0.120) ng/mL Total Protein (6.3-8.2) G/DL Albumin (3.5-5.0) g/dL Globulin (2.2-3.9) gm/dL Albumin/Globulin Ratio (1.0-2.1) Stool Occult Blood (NEGATIVE) Blood Type O POSITIVE Antibody Screen Negative Crossmatch See Detail BBK History Checked Patient has bt 01/30/18 Range/Units 06:00 WBC (4.8-10.8) K/uL RBC (4.40-5.90) Mil/uL Hgb (12.0-18.0) g/dL Hct (35.0-51.0) % MCV (80.0-94.0) fl MCH (27.0-31.0) pg MCHC (33.0-37.0) g/dL RDW (11.5-14.5) % Plt Count (130-400) K/uL MPV (7.2-11.7) fl Neut % (Auto) (50.0-75.0) % Lymph % (Auto) (20.0-40.0) % Tama % (Auto) (0.0-10.0) % Eos % (Auto) (0.0-4.0) % Baso % (Auto) (0.0-2.0) % Neut # (Auto) (1.8-7.0) K/uL Lymph # (Auto) (1.0-4.3) K/uL Tama # (Auto) (0.0-0.8) K/uL Eos # (Auto) (0.0-0.7) K/uL Baso # (Auto) (0.0-0.2) K/uL PT (9.8-13.1) Seconds INR APTT (25.6-37.1) Seconds Sodium (132-148) mmol/l Potassium (3.6-5.0) MMOL/L Chloride (98-107) mmol/L Carbon Dioxide (22-30) mmol/L Anion Gap (10-20) BUN (9-20) mg/dl Creatinine (0.8-1.5) mg/dl Est GFR ( Amer) Est GFR (Non-Af Amer) POC Glucose (mg/dL) (65-110) mg/dL Random Glucose (75-110) mg/dL Calcium (8.4-10.2) mg/dL Total Bilirubin (0.2-1.3) mg/dl AST (17-59) U/L ALT (21-72) U/L Alkaline Phosphatase (38-126) U/L Ammonia (16-60) umo/L Troponin I (0.00-0.120) ng/mL Total Protein (6.3-8.2) G/DL Albumin (3.5-5.0) g/dL Globulin (2.2-3.9) gm/dL Albumin/Globulin Ratio (1.0-2.1) Stool Occult Blood Positive H (NEGATIVE) Blood Type Antibody Screen Crossmatch BBK History Checked Laboratory Results - last 24 hr 01/30/18 01/30/18 01/30/18 06:00 10:42 12:00 WBC RBC Hgb Hct MCV MCH MCHC RDW Plt Count MPV Neut % (Auto) Lymph % (Auto) Tama % (Auto) Eos % (Auto) Baso % (Auto) Neut # (Auto) Lymph # (Auto) Tama # (Auto) Eos # (Auto) Baso # (Auto) PT INR APTT Sodium Potassium Chloride Carbon Dioxide Anion Gap BUN Creatinine Est GFR ( Amer) Est GFR (Non-Af Amer) POC Glucose (mg/dL) 114 H Random Glucose Calcium Total Bilirubin AST ALT Alkaline Phosphatase Ammonia Troponin I Total Protein Albumin Globulin Albumin/Globulin Ratio Stool Occult Blood Positive H Blood Type O POSITIVE Antibody Screen Negative Crossmatch See Detail BBK History Checked Patient has bt 01/31/18 01/31/18 01/31/18 18:06 21:03 21:03 WBC 4.9 6.6 RBC 1.91 L 2.22 L Hgb 5.7 L* 6.5 L* Hct 17.2 L 20.0 L MCV 90.1 90.0 MCH 29.6 29.2 MCHC 32.9 L 32.4 L RDW 19.1 H 20.2 H Plt Count 67 L 91 L D MPV Neut % (Auto) Lymph % (Auto) Tama % (Auto) Eos % (Auto) Baso % (Auto) Neut # (Auto) Lymph # (Auto) Tama # (Auto) Eos # (Auto) Baso # (Auto) PT 23.6 H INR 2.1 APTT 28.8 Sodium Potassium Chloride Carbon Dioxide Anion Gap BUN Creatinine Est GFR ( Amer) Est GFR (Non-Af Amer) POC Glucose (mg/dL) Random Glucose Calcium Total Bilirubin AST ALT Alkaline Phosphatase Ammonia Troponin I Total Protein Albumin Globulin Albumin/Globulin Ratio Stool Occult Blood Blood Type Antibody Screen Crossmatch BBK History Checked 01/31/18 02/01/18 02/01/18 21:03 04:00 04:40 WBC 3.6 L RBC 2.10 L Hgb 6.2 L* Hct 18.4 L MCV 87.6 D MCH 29.8 MCHC 34.0 RDW 20.0 H Plt Count 50 L D MPV 7.4 Neut % (Auto) 58.7 Lymph % (Auto) 22.0 Tama % (Auto) 12.9 H Eos % (Auto) 5.9 H Baso % (Auto) 0.5 Neut # (Auto) 2.1 Lymph # (Auto) 0.8 L Tama # (Auto) 0.5 Eos # (Auto) 0.2 Baso # (Auto) 0.0 PT INR APTT Sodium 140 Potassium 3.8 Chloride 118 H Carbon Dioxide 17 L Anion Gap 9 L BUN 37 H Creatinine 0.7 L Est GFR ( Amer) > 60 Est GFR (Non-Af Amer) > 60 POC Glucose (mg/dL) Random Glucose 119 H Calcium 6.7 L Total Bilirubin 3.4 H AST 67 H ALT 51 Alkaline Phosphatase 88 Ammonia < 9 L Troponin I < 0.0120 Total Protein 4.6 L Albumin 1.8 L Globulin 2.8 Albumin/Globulin Ratio 0.7 L Stool Occult Blood Blood Type Antibody Screen Crossmatch BBK History Checked 02/01/18 05:46 WBC RBC Hgb Hct MCV MCH MCHC RDW Plt Count MPV Neut % (Auto) Lymph % (Auto) Tama % (Auto) Eos % (Auto) Baso % (Auto) Neut # (Auto) Lymph # (Auto) Tama # (Auto) Eos # (Auto) Baso # (Auto) PT INR APTT Sodium 139 Potassium 3.4 L Chloride 115 H Carbon Dioxide 20 L Anion Gap 7 L BUN 35 H Creatinine 0.7 L Est GFR ( Amer) > 60 Est GFR (Non-Af Amer) > 60 POC Glucose (mg/dL) Random Glucose 84 Calcium 6.8 L Total Bilirubin AST ALT Alkaline Phosphatase Ammonia Troponin I 0.0740 Total Protein Albumin Globulin Albumin/Globulin Ratio Stool Occult Blood Blood Type Antibody Screen Crossmatch BBK History Checked Fingerstick Blood Sugar Results: 114 Critical Care Progress Note - Extremities/Vascular Does the Patient have a Central Venous Catheter?: No Does the Patient need a Central Venous Catheter?: No Does the Patient have a Ty Catheter?: No Does the Patient need a Ty Catheter?: No - Nutrition Nutrition: Nutrition Category Date Time Status NPO Diet [DIET] Diets 01/30/18 Lunch Active Assessment/Plan (1) Upper GI hemorrhage Current Visit: Yes Status: Resolved Priority: High Comment: So far he receive total of 6U of packed RBC with H/H only up from -->6. Evaluated by GI, underwent urgent EJD yesterday 01/31/2018 showing ulcerative duodentitis, grade II esophageal varices at lower 1/3, alcoholic gastritis, duodenal ulcers with No evidence of active bleeding Received Protonix 80 mg iv x 1 dose and currently on Protonix drip Scheduled for 2 more units packed RBC Two large bore peripheral catheters Suplemental O2 No indication for octreotide drip Serial CBCs q 8 /HR GI consult appretiated Patient BP and HR stable, if any instability, will place central line DVT PPx: SCD (2) Alcohol abuse with intoxication Current Visit: Yes Status: Acute Priority: High Comment: Start Folic acid and thiamine Ativan 1 mg IVP Q6 PRN (3) Alcohol withdrawal seizure Current Visit: Yes Status: Acute Priority: Medium Comment: Continue Keppra (4) Abdominal pain Current Visit: Yes Status: Acute Priority: High (5) Bacteremia Current Visit: No Status: Acute Priority: Medium Comment: Follow up cultures Piperacillin Sod/Tazobactam 4.5 gm IVPB Q8 JANNIE ID consulted (6) Esophageal and gastric varices Current Visit: Yes Status: Acute Priority: High (7) Generalized seizure Current Visit: Yes Status: Acute Priority: High Comment: Continue keppra 500 q12H (8) Hematemesis Current Visit: Yes Status: Acute Priority: High (9) DVT prophylaxis Current Visit: Yes Status: Acute Priority: High Comment: - DVT PPx: SCD
--- NOTE | 2018-02-01 09:29 | CP.PCM.PN ---
Subjective - Date & Time of Evaluation Date of Evaluation: 02/01/18 Time of Evaluation: 09:19 - Subjective Subjective: Patient seen and examined at bedside. He c/o right eye pain, redness, and discharge. He states that he has kept in his eye contact lenses for weeks. He denies abdominal pain, n/v/d/c. Denies dizziness, headaches, numbness/ tingling. No chest pain, SOB. Had multiple episodes of bloody loose stool last night. Now s/p 8 PRBC transfusions and 2 FFP. Bedside EGD done over night. He endorses having an appetite. Patient's charts/labs/nurse notes reviewed. Objective - Vital Signs/Intake and Output Vital Signs (last 24 hours): Temp Pulse Resp BP Pulse Ox 98.3 F 68 14 94/46 L 87 L 02/01/18 08:00 02/01/18 08:00 02/01/18 08:00 02/01/18 08:00 02/01/18 08:00 Intake and Output: 02/01/18 02/01/18 06:59 18:59 Intake Total 2509 375 Output Total 1000 Balance 1509 375 - Medications Medications: Current Medications Levetiracetam 500 mg/ Sodium (Chloride) 105 mls @ 210 mls/hr IVPB Q12 [facility]ANN[facility] Last Admin: 02/01/18 08:13 Dose: 210 mls/hr Piperacillin Sod/Tazobactam (Sod 4.5 gm/ Sodium Chloride) 100 mls @ 100 mls/hr IVPB Q8 JANNIE PRN Reason: Protocol Last Admin: 02/01/18 08:16 Dose: 100 mls/hr Lactated Ringer's (Lactated Ringer's) 1,000 mls @ 75 mls/hr IV .[id number] [facility] Last Admin: 02/01/18 07:02 Dose: 75 mls/hr Metronidazole (Flagyl 500mg/100ml Ns) 100 mls @ 100 mls/hr IVPB Q8 JANNIE PRN Reason: Protocol Last Admin: 02/01/18 08:12 Dose: 100 mls/hr Pantoprazole Sodium 40 mg/ (Sodium Chloride) 100 mls @ 20 mls/hr IVPB Q5H JANNIE PRN Reason: 8 MG/HR Last Admin: 02/01/18 04:37 Dose: 20 mls/hr Folic Acid 1 mg/ Sodium (Chloride) 100.2 mls @ 60 mls/hr IVPB DAILY [facility]ANNIE Last Admin: 01/31/18 13:20 Dose: 60 mls/hr Fluconazole (Diflucan Iv 100 Mg/50 Ml Ns) 50 mls @ 50 mls/hr IVPB DAILY JANINE PRN Reason: Protocol Last Admin: 01/31/18 16:45 Dose: 50 mls/hr Levetiracetam (Keppra) 500 mg PO Q12H [facility]ANNIE Lidocaine (Lidoderm) 1 ea TD DAILY JANNIE Last Admin: 02/01/18 08:15 Dose: 1 ea Lorazepam (Ativan) 1 mg IVP STAT PRN PRN Reason: Symptoms of alcohol withdrawl Ondansetron HCl (Zofran Inj) 4 mg IVP Q6 PRN PRN Reason: Nausea/Vomiting Last Admin: 01/30/18 16:34 Dose: 4 mg Thiamine HCl (Vitamin B1 Inj) 100 mg IM DAILY JANNIE Last Admin: 02/01/18 08:16 Dose: 100 mg - Labs Labs: 02/01/18 04:00 02/01/18 05:46 PT 23.6 Seconds (9.8-13.1) H 01/31/18 21:03 INR 2.1 01/31/18 21:03 APTT 28.8 Seconds (25.6-37.1) 01/31/18 21:03 - Constitutional Appears: No Acute Distress, Cachectic - Head Exam Head Exam: ATRAUMATIC, NORMAL INSPECTION - Eye Exam Eye Exam: Conjunctival injection (right eye. w/ white/yellow discharge ), Scleral icterus - Neck Exam Neck Exam: Normal Inspection. absent: Lymphadenopathy, Tenderness - Respiratory Exam Respiratory Exam: Clear to Ausculation Bilateral, NORMAL BREATHING PATTERN - Cardiovascular Exam Cardiovascular Exam: REGULAR RHYTHM, RRR, +S1, +S2 - GI/Abdominal Exam GI & Abdominal Exam: Soft, Normal Bowel Sounds. absent: Tenderness - Extremities Exam Extremities Exam: Normal Inspection. absent: Normal Capillary Refill, Pedal Edema, Tenderness Additional comments: right shoulder hematoma improved, covered w/ lidoderm patch - Back Exam Back Exam: NORMAL INSPECTION. absent: CVA tenderness (L), CVA tenderness (R) - Neurological Exam Neurological Exam: Alert, Awake, Oriented x3 - Psychiatric Exam Psychiatric exam: Normal Affect, Normal Mood - Skin Skin Exam: Dry, Normal Color, Warm Assessment and Plan - Assessment and Plan (Free Text) Assessment: 52 y/o alcoholic male w/ pmh significant for unwitnessed seizures, cirrhosis, hepatic encephalograph and upper GI bleeds requiring multiple blood transfusions admitted for a hgb of 5.7 Plan: Hematemesis and abdominal pain -s/p 8 units of PRBC transfusions and 2 FFPs -GI consulted, Dr. Swartz, appreciate recs; EGD done emergently 01/31/2018: ulcerative duodentitis, grade II esophageal varices at lower 1/3, alcoholic gastritis, duodenal ulcers -abdominal/pelvis CT scan 01/30/18: marked ascending colonic wall thickening/ pericolic stranding compatible w/ colitis/typhilitis. Marked thickening of the gastric antrum w/ moderate thickening of 1/2nd portions of duodenum compatible w / antritis/duodenitis. -Splenomegaly and hepatic cirrhosis. Patent right hepatic right portal vein TIPS stent. -Colonoscopy (06/2017) Poor prep, internal/external hemorrhoids -will follow CBC -protonix 20mLs/hr IVPB Q5H (8g/hr) Zofran 4 mg IV Q6 PRN Typhilitis/colitis/duodenitis -present on abd CT 01/30/2018 -ID consult, recs appreciated -c/w Zosyn 4.5g IV Q8 day #3, started Metronidazole 500mg day#3 and fluconazole IV 100mg/50mL NS day#2 -cdiff toxin a/b and stool cx pending Thrombocytopenia -chronic -platelets 50 s/p Vitamin K 5mg PO once 01/31/2018 -likely 2/2 to live failure vs bone marrow suppression 2/2 to etoh abuse/liver failure -will monitor w/ follow up labs in AM and trend Right shoulder pain -s/p fall 01/23/2018 -Right shoulder x-ray negative for fracture -Lidoderm patch 1 TD QD PRN Right > left eye pain and discharge -advised patient to remove eye contact lenses. Patient only removed right eye contact lens, refused to remove the left one. -2/2 prolonged eye contact lens use -ordered tobrex 2 drops Q6 OU Hx of Seizures -Keppra 500 IV Q12 Hx of ETOH abuse -alcohol level 57 in ED -CIWA protocol Q1hrs -Ativan 1 mg PRN -Banana Bag IV 1L @100mLs/hr Hx of Staph bacteremia -stool cx uncollected, will order again -blood culture and urine cultures ordered Diet: -NPO DVT prophylaxis -SCDs Code Status -full code
[2018-02-01] MEDS: Fluconazole IV 100mg/50 ml NS 50 ML IVPB SCH (10:28)
--- NOTE | 2018-02-01 12:12 | CP.PCM.PN ---
Subjective - Date & Time of Evaluation Date of Evaluation: 02/01/18 Time of Evaluation: 12:12 - Subjective Subjective: ID note- Pt. seen and examined today in ICU. pt. more alert today. he states he is very hungry and is upset he isn't cleared to eat yet. as per nurse pt. had emergent endocscopy today and as per GI note revealed ulcerative duodenitis and most likely the source of the bleed. Objective - Vital Signs/Intake and Output Vital Signs (last 24 hours): Temp Pulse Resp BP Pulse Ox 98.3 F 65 15 102/49 L 97 02/01/18 08:00 02/01/18 10:00 02/01/18 10:00 02/01/18 10:00 02/01/18 10:00 Intake and Output: 02/01/18 02/01/18 06:59 18:59 Intake Total 2509 1425 Output Total 1000 Balance 1509 1425 - Medications Medications: Current Medications Levetiracetam 500 mg/ Sodium (Chloride) 105 mls @ 210 mls/hr IVPB Q12 [facility] Last Admin: 02/01/18 08:13 Dose: 210 mls/hr Piperacillin Sod/Tazobactam (Sod 4.5 gm/ Sodium Chloride) 100 mls @ 100 mls/hr IVPB Q8 JANNIE PRN Reason: Protocol Last Admin: 02/01/18 08:16 Dose: 100 mls/hr Lactated Ringer's (Lactated Ringer's) 1,000 mls @ 75 mls/hr IV .[id number] [facility] Last Admin: 02/01/18 07:02 Dose: 75 mls/hr Metronidazole (Flagyl 500mg/100ml Ns) 100 mls @ 100 mls/hr IVPB Q8 JANNIE PRN Reason: Protocol Last Admin: 02/01/18 08:12 Dose: 100 mls/hr Pantoprazole Sodium 40 mg/ (Sodium Chloride) 100 mls @ 20 mls/hr IVPB Q5H JANNIE PRN Reason: 8 MG/HR Last Admin: 02/01/18 04:37 Dose: 20 mls/hr Folic Acid 1 mg/ Sodium (Chloride) 100.2 mls @ 60 mls/hr IVPB DAILY [facility] Last Admin: 02/01/18 10:27 Dose: 60 mls/hr Fluconazole (Diflucan Iv 100 Mg/50 Ml Ns) 50 mls @ 50 mls/hr IVPB DAILY JANNIE PRN Reason: Protocol Last Admin: 02/01/18 10:28 Dose: 50 mls/hr Levetiracetam (Keppra) 500 mg PO Q12H [facility] Lidocaine (Lidoderm) 1 ea TD DAILY JANNIE Last Admin: 02/01/18 08:15 Dose: 1 ea Lorazepam (Ativan) 1 mg IVP STAT PRN PRN Reason: Symptoms of alcohol withdrawl Ondansetron HCl (Zofran Inj) 4 mg IVP Q6 PRN PRN Reason: Nausea/Vomiting Last Admin: 01/30/18 16:34 Dose: 4 mg Thiamine HCl (Vitamin B1 Inj) 100 mg IM DAILY JANNIE Last Admin: 02/01/18 08:16 Dose: 100 mg - Labs Labs: - Additional Findings Additional findings: - Constitutional Appears: Chronically Ill, NAD - Eye Exam Eye Exam: PERRL - ENT Exam ENT Exam: Normal Oropharynx - Neck Exam Neck exam: Positive for: Full Rom - Respiratory Exam Respiratory Exam: NORMAL BREATHING PATTERN Additional comments: no wheezing breath sounds heard b/l - Cardiovascular Exam Cardiovascular Exam: RRR, +S1, +S2 - GI/Abdominal Exam GI & Abdominal Exam: Soft Additional comments: No distention, no tenderness hypoactive bowel sounds - Extremities Exam Additional comments: no edema b/l LE - Neurological Exam Additional comments: AAO x 3 Laboratory Results - last 72 hr 01/30/18 01/30/18 01/30/18 06:00 10:42 12:00 WBC 8.6 RBC 1.90 L Hgb 5.7 L* D Hct 17.7 L MCV 92.8 MCH 30.0 MCHC 32.3 L RDW 21.8 H Plt Count 72 L MPV 8.2 Neut % (Auto) 71.2 Lymph % (Auto) 14.7 L Davie % (Auto) 11.8 H Eos % (Auto) 1.2 Baso % (Auto) 1.1 Neut # (Auto) 6.1 Lymph # (Auto) 1.3 Davie # (Auto) 1.0 H Eos # (Auto) 0.1 Baso # (Auto) 0.1 PT INR APTT Sodium Potassium Chloride Carbon Dioxide Anion Gap BUN Creatinine Est GFR ( Amer) Est GFR (Non-Af Amer) POC Glucose (mg/dL) 114 H Random Glucose Lactic Acid Calcium Phosphorus Magnesium Total Bilirubin AST ALT Alkaline Phosphatase Ammonia Troponin I Total Protein Albumin Globulin Albumin/Globulin Ratio Lipase Stool Occult Blood Positive H Alcohol, Quantitative Blood Type Antibody Screen Crossmatch BBK History Checked 01/30/18 01/30/18 01/30/18 12:00 12:00 12:00 WBC RBC Hgb Hct MCV MCH MCHC RDW Plt Count MPV Neut % (Auto) Lymph % (Auto) Davie % (Auto) Eos % (Auto) Baso % (Auto) Neut # (Auto) Lymph # (Auto) Davie # (Auto) Eos # (Auto) Baso # (Auto) PT 21.7 H D INR 1.9 APTT 23.6 L Sodium 139 Potassium 5.4 H Chloride 112 H Carbon Dioxide 15 L Anion Gap 17 BUN 51 H Creatinine 0.9 Est GFR ( Amer) > 60 Est GFR (Non-Af Amer) > 60 POC Glucose (mg/dL) Random Glucose 100 Lactic Acid Calcium 7.3 L Phosphorus Magnesium 1.5 L Total Bilirubin 2.9 H AST 84 H ALT 51 Alkaline Phosphatase 101 Ammonia Troponin I Total Protein 5.6 L Albumin 2.4 L Globulin 3.2 Albumin/Globulin Ratio 0.8 L Lipase 329 H Stool Occult Blood Alcohol, Quantitative 57 H Blood Type O POSITIVE Antibody Screen Negative Crossmatch See Detail BBK History Checked Patient has bt 01/30/18 01/30/18 01/31/18 12:10 14:10 04:40 WBC RBC Hgb Hct MCV MCH MCHC RDW Plt Count MPV Neut % (Auto) Lymph % (Auto) Davie % (Auto) Eos % (Auto) Baso % (Auto) Neut # (Auto) Lymph # (Auto) Davie # (Auto) Eos # (Auto) Baso # (Auto) PT INR APTT Sodium Potassium Chloride Carbon Dioxide Anion Gap BUN Creatinine Est GFR ( Amer) Est GFR (Non-Af Amer) POC Glucose (mg/dL) Random Glucose Lactic Acid 1.4 Calcium Phosphorus Magnesium Total Bilirubin AST ALT Alkaline Phosphatase Ammonia 75 H D Troponin I Total Protein Albumin Globulin Albumin/Globulin Ratio Lipase Stool Occult Blood Negative Alcohol, Quantitative Blood Type Antibody Screen Crossmatch BBK History Checked 01/31/18 01/31/18 01/31/18 04:40 04:40 04:40 WBC 5.1 RBC 2.01 L Hgb 6.2 L* Hct 18.2 L MCV 90.3 D MCH 30.7 MCHC 34.0 RDW 19.4 H Plt Count 61 L MPV 7.8 Neut % (Auto) 71.1 Lymph % (Auto) 13.8 L Davie % (Auto) 10.2 H Eos % (Auto) 4.0 Baso % (Auto) 0.9 Neut # (Auto) 3.7 Lymph # (Auto) 0.7 L Davie # (Auto) 0.5 Eos # (Auto) 0.2 Baso # (Auto) 0.0 PT INR APTT Sodium 141 Potassium 4.0 Chloride 115 H Carbon Dioxide 19 L Anion Gap 11 BUN 45 H Creatinine 0.7 L Est GFR ( Amer) > 60 Est GFR (Non-Af Amer) > 60 POC Glucose (mg/dL) Random Glucose 101 Lactic Acid Calcium 7.0 L Phosphorus 3.5 Magnesium 1.9 Total Bilirubin 3.4 H AST 77 H ALT 45 Alkaline Phosphatase 100 Ammonia 73 H Troponin I Total Protein 5.1 L Albumin 2.0 L Globulin 3.1 Albumin/Globulin Ratio 0.7 L Lipase Stool Occult Blood Alcohol, Quantitative Blood Type Antibody Screen Crossmatch BBK History Checked 01/31/18 01/31/18 01/31/18 18:06 21:03 21:03 WBC 4.9 6.6 RBC 1.91 L 2.22 L Hgb 5.7 L* 6.5 L* Hct 17.2 L 20.0 L MCV 90.1 90.0 MCH 29.6 29.2 MCHC 32.9 L 32.4 L RDW 19.1 H 20.2 H Plt Count 67 L 91 L D MPV Neut % (Auto) Lymph % (Auto) Davie % (Auto) Eos % (Auto) Baso % (Auto) Neut # (Auto) Lymph # (Auto) Davie # (Auto) Eos # (Auto) Baso # (Auto) PT 23.6 H INR 2.1 APTT 28.8 Sodium Potassium Chloride Carbon Dioxide Anion Gap BUN Creatinine Est GFR ( Amer) Est GFR (Non-Af Amer) POC Glucose (mg/dL) Random Glucose Lactic Acid Calcium Phosphorus Magnesium Total Bilirubin AST ALT Alkaline Phosphatase Ammonia Troponin I Total Protein Albumin Globulin Albumin/Globulin Ratio Lipase Stool Occult Blood Alcohol, Quantitative Blood Type Antibody Screen Crossmatch BBK History Checked 01/31/18 02/01/18 02/01/18 21:03 04:00 04:40 WBC 3.6 L RBC 2.10 L Hgb 6.2 L* Hct 18.4 L MCV 87.6 D MCH 29.8 MCHC 34.0 RDW 20.0 H Plt Count 50 L D MPV 7.4 Neut % (Auto) 58.7 Lymph % (Auto) 22.0 Davie % (Auto) 12.9 H Eos % (Auto) 5.9 H Baso % (Auto) 0.5 Neut # (Auto) 2.1 Lymph # (Auto) 0.8 L Davie # (Auto) 0.5 Eos # (Auto) 0.2 Baso # (Auto) 0.0 PT INR APTT Sodium 140 Potassium 3.8 Chloride 118 H Carbon Dioxide 17 L Anion Gap 9 L BUN 37 H Creatinine 0.7 L Est GFR ( Amer) > 60 Est GFR (Non-Af Amer) > 60 POC Glucose (mg/dL) Random Glucose 119 H Lactic Acid Calcium 6.7 L Phosphorus Magnesium Total Bilirubin 3.4 H AST 67 H ALT 51 Alkaline Phosphatase 88 Ammonia < 9 L Troponin I < 0.0120 Total Protein 4.6 L Albumin 1.8 L Globulin 2.8 Albumin/Globulin Ratio 0.7 L Lipase Stool Occult Blood Alcohol, Quantitative Blood Type Antibody Screen Crossmatch BBK History Checked 02/01/18 02/01/18 02/01/18 05:46 08:42 15:56 WBC 3.3 L RBC 2.70 L Hgb 7.8 L Hct 23.5 L MCV 87.0 MCH 28.9 MCHC 33.2 RDW 20.4 H Plt Count 46 L MPV Neut % (Auto) Lymph % (Auto) Davie % (Auto) Eos % (Auto) Baso % (Auto) Neut # (Auto) Lymph # (Auto) Davie # (Auto) Eos # (Auto) Baso # (Auto) PT INR APTT Sodium 139 Potassium 3.4 L Chloride 115 H Carbon Dioxide 20 L Anion Gap 7 L BUN 35 H Creatinine 0.7 L Est GFR ( Amer) > 60 Est GFR (Non-Af Amer) > 60 POC Glucose (mg/dL) Random Glucose 84 Lactic Acid Calcium 6.8 L Phosphorus Magnesium Total Bilirubin AST ALT Alkaline Phosphatase Ammonia Troponin I 0.0740 Total Protein Albumin Globulin Albumin/Globulin Ratio Lipase Stool Occult Blood Alcohol, Quantitative Blood Type O POSITIVE Antibody Screen Negative Crossmatch See Detail BBK History Checked Patient has bt Microbiology 01/31/18 14:48 Blood-Venous Blood Culture - Preliminary NO GROWTH AFTER 24 HOURS 01/31/18 14:38 Blood-Venous Blood Culture - Preliminary NO GROWTH AFTER 24 HOURS 01/30/18 14:00 Blood-Venous Blood Culture - Preliminary NO GROWTH AFTER 48 HOURS 01/30/18 18:19 Nose MRSA Culture (Admit) - Final MRSA NOT DETECTED 01/31/18 06:45 Urine Urine Culture - Final No Growth (<1,000 CFU/ML) Assessment and Plan (1) Anemia Status: Acute (2) GI bleed Status: Acute (3) Esophageal and gastric varices Status: Acute (4) Abdominal pain Status: Acute (5) Alcohol withdrawal seizure Status: Acute (6) Alcoholism Status: Acute (7) Hematemesis Status: Acute - Assessment and Plan (Free Text) Assessment: A/P- 52 year old male with h/o ETOH abuse/ and seizures, cirrhosis s/p TIPs, thrombocytopenia admitted with hematemesis and hematochezia found to be intoxicated again with EOH levels that are high and anemic . s/p endoscopy- as per GI ulcerative duodenitis GI following pt. afebrile minimal leukopenia chronic thrombocytopenia blood cx- neg x 3 CT abd report- colitis,typhlitis , duodenitis. UA- neg Plan- PRBC transfusion as per GI and ICU team. agree with empiric IV abx coverage for colitis /typhlitis with IV zosyn and flagyl. day #4 continue with IV fluconazole as well day #2 for antifungal empiric coverage. consider surgical evaluation if no improvement on repeat CT scans. ICU time 40 min.
--- NOTE | 2018-02-01 14:07 | CP.PCM.PN ---
Subjective - Date & Time of Evaluation Date of Evaluation: 02/01/18 Time of Evaluation: 09:00 - Subjective Subjective: Patient awake and alert. Had maroon stool over night. Patient states it was just small amount. Appears comfortable. Objective - Vital Signs/Intake and Output Vital Signs (last 24 hours): Temp Pulse Resp BP Pulse Ox 98.1 F 65 12 103/47 L 96 02/01/18 12:00 02/01/18 12:00 02/01/18 12:00 02/01/18 12:00 02/01/18 12:00 Intake and Output: 02/01/18 02/01/18 06:59 18:59 Intake Total 2509 1575 Output Total 1000 Balance 1509 1575 - Medications Medications: Current Medications Levetiracetam 500 mg/ Sodium (Chloride) 105 mls @ 210 mls/hr IVPB Q12 [facility] Last Admin: 02/01/18 08:13 Dose: 210 mls/hr Piperacillin Sod/Tazobactam (Sod 4.5 gm/ Sodium Chloride) 100 mls @ 100 mls/hr IVPB Q8 JANNIE PRN Reason: Protocol Last Admin: 02/01/18 08:16 Dose: 100 mls/hr Lactated Ringer's (Lactated Ringer's) 1,000 mls @ 75 mls/hr IV .[id number] [facility]ANN[facility] Last Admin: 02/01/18 07:02 Dose: 75 mls/hr Metronidazole (Flagyl 500mg/100ml Ns) 100 mls @ 100 mls/hr IVPB Q8 JANNIE PRN Reason: Protocol Last Admin: 02/01/18 08:12 Dose: 100 mls/hr Pantoprazole Sodium 40 mg/ (Sodium Chloride) 100 mls @ 20 mls/hr IVPB Q5H JANNIE PRN Reason: 8 MG/HR Last Admin: 02/01/18 04:37 Dose: 20 mls/hr Folic Acid 1 mg/ Sodium (Chloride) 100.2 mls @ 60 mls/hr IVPB DAILY [facility] Last Admin: 02/01/18 10:27 Dose: 60 mls/hr Fluconazole (Diflucan Iv 100 Mg/50 Ml Ns) 50 mls @ 50 mls/hr IVPB DAILY JANNIE PRN Reason: Protocol Last Admin: 02/01/18 10:28 Dose: 50 mls/hr Levetiracetam (Keppra) 500 mg PO Q12H [facility] Lidocaine (Lidoderm) 1 ea TD DAILY [facility]ANNIE Last Admin: 02/01/18 08:15 Dose: 1 ea Lorazepam (Ativan) 1 mg IVP STAT PRN PRN Reason: Symptoms of alcohol withdrawl Ondansetron HCl (Zofran Inj) 4 mg IVP Q6 PRN PRN Reason: Nausea/Vomiting Last Admin: 01/30/18 16:34 Dose: 4 mg Thiamine HCl (Vitamin B1 Inj) 100 mg IM DAILY [facility] Last Admin: 02/01/18 08:16 Dose: 100 mg - Labs Labs: 02/01/18 04:00 02/01/18 05:46 PT 23.6 Seconds (9.8-13.1) H 01/31/18 21:03 INR 2.1 01/31/18 21:03 APTT 28.8 Seconds (25.6-37.1) 01/31/18 21:03 - Head Exam Head Exam: ATRAUMATIC - Eye Exam Eye Exam: EOMI Pupil Exam: PERRL - ENT Exam ENT Exam: Normal Exam - Neck Exam Neck Exam: Normal Inspection - Respiratory Exam Respiratory Exam: Clear to Ausculation Bilateral - Cardiovascular Exam Cardiovascular Exam: REGULAR RHYTHM - GI/Abdominal Exam GI & Abdominal Exam: Soft, Normal Bowel Sounds. absent: Tenderness Assessment and Plan (1) GI bleed Assessment & Plan: Emergency endoscopy last night showed severe ulcerative duodenitis which likely is cause of bleed. Blood pressure remains normal though on the low side and heart rate is not elevated. Blood, urine, and nasal cultures all negative. Temp and WBC have been normal since admission. Continue transfusions to Hgb of 8 and recheck Hgb once the current transfusion is complete. Maintain continuos infusion pantoprazole at 8 mg/hour. Status: Acute
[2018-02-01 16:00] LABS: HEMOGLOBIN 7.8 g/dL (12.0-18.0); MEAN CORPUSCULAR HEMOGLOBIN 28.9 pg (27.0-31.0); MEAN CORPUSCULAR HGB CONC 33.2 g/dL (33.0-37.0); RBC 2.7 Mil/uL (4.40-5.90); RED CELL DISTRIBUTION WIDTH 20.4 % (11.5-14.5); WHITE BLOOD COUNT 3.3 K/uL (4.8-10.8)
[2018-02-01 21:07] LABS: HEMOGLOBIN 7.9 g/dL (12.0-18.0); MEAN CORPUSCULAR HGB CONC 33.3 g/dL (33.0-37.0); RBC 2.72 Mil/uL (4.40-5.90); RED CELL DISTRIBUTION WIDTH 20.6 % (11.5-14.5); WHITE BLOOD COUNT 3.3 K/uL (4.8-10.8)
[2018-02-01] MEDS: Tobramycin 0.3% OPHT SOLN OU SCH (22:07)
[2018-02-02] MEDS: Pantoprazole 40 MG in Sodium Chloride 0.9% 100 ML IVPB SCH ×5 (00:25→20:32)
[2018-02-02] MEDS: metroNIDAZOLE 500mg/100ml NS 100 ML IVPB SCH ×3 (01:28→17:09)
[2018-02-02] MEDS: Piperacillin/Tazobact 4.5 GM in Sodium Chloride 0.9% 100 ML IVPB SCH ×3 (01:29→17:10)
[2018-02-02] MEDS: levETIRAcetam 500 MG in Sodium Chloride 0.9% 100 ML IVPB SCH ×3 (03:27→20:32)
[2018-02-02] MEDS: Lactated Ringer's 1,000 ML IV SCH (03:28)
[2018-02-02 05:47] LABS: BASO % 0.3 % (0.0-2.0); EOS # 0.2 K/uL (0.0-0.7); EOS % 6.3 % (0.0-4.0); HEMOGLOBIN 7.9 g/dL (12.0-18.0); LYMPH # 0.6 K/uL (1.0-4.3); LYMPH % 18.6 % (20.0-40.0); MEAN CELL VOLUME 86.8 fl (80.0-94.0); MEAN CORPUSCULAR HEMOGLOBIN 29.1 pg (27.0-31.0); MEAN CORPUSCULAR HGB CONC 33.5 g/dL (33.0-37.0); MEAN PLATELET VOLUME 7.4 fl (7.2-11.7); MONO # 0.4 K/uL (0.0-0.8); MONO % 10.2 % (0.0-10.0); NEUT # 2.3 K/uL (1.8-7.0); NEUT % 64.6 % (50.0-75.0); NRBC % 0.1 % (0.0-0.0); RBC 2.71 Mil/uL (4.40-5.90); RED CELL DISTRIBUTION WIDTH 20.9 % (11.5-14.5); WHITE BLOOD COUNT 3.5 K/uL (4.8-10.8)
[2018-02-02] MEDS: Tobramycin 0.3% OPHT SOLN OU SCH ×4 (06:03→22:49)
--- NOTE | 2018-02-02 07:29 | PQF ---
PROVIDER RESPONSE TEXT: Due to acute blood loss, upper GI bleed REVIEWER QUERY TEXT: Anemia Type Anemia is documented in the Medical Record. Please specify the cause (includes suspected or probable cause) Such as: -- Due to acute blood loss -- Due to chronic blood loss -- Due to iron deficiency -- Due to postoperative blood loss -- Due to chronic disease -- Other, please specify The patient's Clinical Indicators include: Patient with a history of Anemia presents with hematemesis. Treated with PRBC and FFP, folic acid Query created by: Maribell Willingham on 02/01/2018 9:57 AM Electronically signed by: Elizabeth Quinteros 02/02/2018 7:27 AM
[2018-02-02 07:47] LABS: HEMOGLOBIN 7.9 g/dL (12.0-18.0); MEAN CORPUSCULAR HGB CONC 33.4 g/dL (33.0-37.0); RBC 2.71 Mil/uL (4.40-5.90); RED CELL DISTRIBUTION WIDTH 20.5 % (11.5-14.5); WHITE BLOOD COUNT 3.2 K/uL (4.8-10.8)
[2018-02-02 08:05] LABS: BLOOD UREA NITROGEN 22 mg/dl (9-20); CALCIUM 6.9 mg/dL (8.4-10.2); GFR NON-AFRICAN AMERICAN > 60
[2018-02-02] MEDS: Fluconazole IV 100mg/50 ml NS 50 ML IVPB SCH (08:40)
[2018-02-02] MEDS: Lidocaine 5% Patch TD SCH (08:44)
[2018-02-02] MEDS: Thiamine 100 mg/ml Inj IM SCH (08:45)
[2018-02-02 08:52] LABS: HEMOGLOBIN 8.5 g/dL (12.0-18.0); MEAN CELL VOLUME 85.6 fl (80.0-94.0); MEAN CORPUSCULAR HEMOGLOBIN 29.4 pg (27.0-31.0); MEAN CORPUSCULAR HGB CONC 34.4 g/dL (33.0-37.0); RBC 2.89 Mil/uL (4.40-5.90); WHITE BLOOD COUNT 3.9 K/uL (4.8-10.8)
--- NOTE | 2018-02-02 09:07 | CP.PCM.PN ---
Subjective - Date & Time of Evaluation Date of Evaluation: 02/02/18 Time of Evaluation: 09:05 - Subjective Subjective: Patient seen and examined at bedside. Denies diarrhea/n/v/abdominal pain. Right eye pain and discharge improving. Patient asking for food. No acute events overnight. Patient's charts/labs/nurse notes reviewed. Objective - Vital Signs/Intake and Output Vital Signs (last 24 hours): Temp Pulse Resp BP Pulse Ox 97.9 F 67 14 114/45 L 95 02/02/18 08:00 02/02/18 08:00 02/02/18 08:00 02/02/18 08:00 02/02/18 08:00 - Medications Medications: Current Medications Levetiracetam 500 mg/ Sodium (Chloride) 105 mls @ 210 mls/hr IVPB Q12 JANNIE Last Admin: 02/02/18 08:43 Dose: 210 mls/hr Piperacillin Sod/Tazobactam (Sod 4.5 gm/ Sodium Chloride) 100 mls @ 100 mls/hr IVPB Q8 JANNIE PRN Reason: Protocol Last Admin: 02/02/18 01:29 Dose: 100 mls/hr Lactated Ringer's (Lactated Ringer's) 1,000 mls @ 75 mls/hr IV .[id number] [facility] Last Admin: 02/02/18 03:28 Dose: 75 mls/hr Metronidazole (Flagyl 500mg/100ml Ns) 100 mls @ 100 mls/hr IVPB Q8 JANNIE PRN Reason: Protocol Last Admin: 02/02/18 01:28 Dose: 100 mls/hr Pantoprazole Sodium 40 mg/ (Sodium Chloride) 100 mls @ 20 mls/hr IVPB Q5H JANNIE PRN Reason: 8 MG/HR Last Admin: 02/02/18 00:25 Dose: 20 mls/hr Folic Acid 1 mg/ Sodium (Chloride) 100.2 mls @ 60 mls/hr IVPB DAILY [facility] Last Admin: 02/01/18 10:27 Dose: 60 mls/hr Fluconazole (Diflucan Iv 100 Mg/50 Ml Ns) 50 mls @ 50 mls/hr IVPB DAILY JANNIE PRN Reason: Protocol Last Admin: 02/02/18 08:40 Dose: 50 mls/hr Levetiracetam (Keppra) 500 mg PO Q12H [facility] Lidocaine (Lidoderm) 1 ea TD DAILY [facility] Last Admin: 02/02/18 08:44 Dose: 1 ea Lorazepam (Ativan) 1 mg IVP STAT PRN PRN Reason: Symptoms of alcohol withdrawl Ondansetron HCl (Zofran Inj) 4 mg IVP Q6 PRN PRN Reason: Nausea/Vomiting Last Admin: 01/30/18 16:34 Dose: 4 mg Thiamine HCl (Vitamin B1 Inj) 100 mg IM DAILY [facility] Last Admin: 02/02/18 08:45 Dose: 100 mg Tobramycin Sulfate (Tobrex 0.3% Ophth Soln) 2 drop OU Q6 [facility] Last Admin: 02/02/18 06:03 Dose: Not Given - Labs Labs: 02/02/18 08:22 02/02/18 06:57 PT 23.6 Seconds (9.8-13.1) H 01/31/18 21:03 INR 2.1 01/31/18 21:03 APTT 28.8 Seconds (25.6-37.1) 01/31/18 21:03 - Constitutional Appears: No Acute Distress, Cachectic - Eye Exam Eye Exam: Conjunctival injection (R>L eye, improved from yesterday), Scleral icterus - ENT Exam ENT Exam: Mucous Membranes Dry (dry mouth, patient NPO) - Respiratory Exam Respiratory Exam: Clear to Ausculation Bilateral, NORMAL BREATHING PATTERN - Cardiovascular Exam Cardiovascular Exam: REGULAR RHYTHM, RRR, +S1, +S2 - GI/Abdominal Exam GI & Abdominal Exam: Soft, Normal Bowel Sounds. absent: Tenderness - Extremities Exam Extremities Exam: Normal Inspection, Tenderness. absent: Pedal Edema Additional comments: Right shoulder bruise improving. Lidoderm patch in place. - Back Exam Back Exam: NORMAL INSPECTION. absent: CVA tenderness (L), CVA tenderness (R) - Neurological Exam Neurological Exam: Alert, Awake, Oriented x3 - Psychiatric Exam Psychiatric exam: Normal Affect, Normal Mood - Skin Skin Exam: Dry, Normal Color, Warm Assessment and Plan - Assessment and Plan (Free Text) Assessment: 52 y/o alcoholic male w/ pmh significant for unwitnessed seizures, cirrhosis, hepatic encephalograph and upper GI bleeds requiring multiple blood transfusions admitted for a hgb of 5.7 Plan: Hematemesis and abdominal pain -hgb stable 8.2 today -s/p 8 units of PRBC transfusions and 2 FFPs -GI consulted, Dr. Swartz, appreciate recs; EGD done emergently 01/31/2018: ulcerative duodentitis, grade II esophageal varices at lower 1/3, alcoholic gastritis, duodenal ulcers -abdominal/pelvis CT scan 01/30/18: marked ascending colonic wall thickening/ pericolic stranding compatible w/ colitis/typhilitis. Marked thickening of the gastric antrum w/ moderate thickening of 1/2nd portions of duodenum compatible w / antritis/duodenitis. -Splenomegaly and hepatic cirrhosis. Patent right hepatic right portal vein TIPS stent. -Colonoscopy (06/2017) Poor prep, internal/external hemorrhoids -will follow CBC -protonix 20mLs/hr IVPB Q5H (8g/hr) Zofran 4 mg IV Q6 PRN Typhilitis/colitis/duodenitis -present on abd CT 01/30/2018, -ID consult, recommends repeat CT. c/w Zosyn 4.5g IV Q8 day #4, Metronidazole 500mg day#4 and fluconazole IV 100mg/50mL NS day#3 -cdiff toxin a/b and stool cx pending Thrombocytopenia -chronic -platelets 50 s/p Vitamin K 5mg PO once 01/31/2018 -likely 2/2 to live failure vs bone marrow suppression 2/2 to etoh abuse/liver failure -will monitor w/ follow up labs in AM and trend Right shoulder pain -s/p fall 01/23/2018 -Right shoulder x-ray negative for fracture -Lidoderm patch 1 TD QD PRN Right > left eye pain and discharge -improving -advised patient to remove eye contact lenses. Patient only removed right eye contact lens, refused to remove the left one. -2/2 prolonged eye contact lens use -c/w tobrex 2 drops Q6 OU Hx of Seizures -Keppra 500 IV Q12 Cirrhosis 2/2 ETOH abuse -Meld score: 19; [id number] Score: 11C -alcohol level 57 in ED -CIWA protocol Q1hrs -Ativan 1 mg PRN -Banana Bag IV 1L @100mLs/hr Hx of Staph bacteremia -stool cx uncollected, will order again -blood culture and urine cultures ordered Diet: -Regular diet DVT prophylaxis -SCDs Code Status -full code
--- NOTE | 2018-02-02 11:07 | CP.CCUPN ---
CCU Subjective - Physician Review Subjective (Free Text): 01/31/18 11:05 The patient was Seen/interviewed and examined by me at the bedside during ICU round, Medical records reviewed and Management issues were discussed and formulated with the house staff. Events reviewed 52 Years old Male with PMHx significant for Alcoholic Liver cirrhosis s/p TIPS ( 2014), severe esophagitis with esophageal ulcer (October 15, 2017), Gastritis, Seizures, Anemia, Anxiety, Back Problems (herniated disc), Deep Vein Thrombosis , Chronic Pain (left shoulder) and Fractures (rib fx, left shoulder, Left hand 5th digit, Humerus fracture). who presented to the ED with complaint of hematemesis, hematochezia and dizziness Abdominal pain x 2 days Patient with recurrent admission and ED visits for decompensated cirrhosis, recurrent GIB and EtOH withdrawal seizures Pt admitted to the ICU for mangement of Upper GIB, hematemesis Evaluated by GI, underwent urgent EJD yesterday 01/31/2018 showing ulcerative duodentitis, grade II esophageal varices, alcoholic gastritis, duodenal ulcers with No evidence of active bleeding So far he receive total of 8U of packed RBC and 2U FFP with H/H has been stable over last 24H Received Protonix 80 mg iv x 1 dose and currently on Protonix drip Intially BP boarderline, now better Started on full liquid diet today, also was on IV fluids with LR @ 75 cc/H which discontinued today Afebrile, NSR on the monitor (+) loose maroon stools 02/02/18 10:43 abdominal/pelvis CT scan 01/30/18: marked ascending colonic wall thickening/ pericolic stranding compatible w/ colitis/typhilitis. Marked thickening of the gastric antrum q/ moderate thickening of 1/2nd portions of duodenum compatible w / antritis/duodenitis. -Splenomegaly and hepatic cirrhosis. Patent right hepatic right portal vein TIPS stent CCU Objective - Vital Signs / Intake & Output Vital Signs (Last 4 hours): Vital Signs Temp Pulse Resp BP Pulse Ox 02/02/18 08:00 97.9 F 67 14 114/45 L 95 - Physical Exam Head: Positive for: Atraumatic, Normocephalic. Negative for: Tenderness, Contusion Pupils: Positive for: PERRL. Negative for: Sluggish, Non-Reactive Extroacular Muscles: Positive for: EOMI Conjunctiva: Positive for: Normal. Negative for: Injected, Icteric Neck: Positive for: Normal Range of Motion, Trachea Midline. Negative for: Meningeal Signs, MIDLINE TENDERNESS, Paraspinal Tenderness, JVD, Lymphadenopathy , Bruit, Other Respiratory/Chest: Positive for: Clear to Auscultation, Good Air Exchange. Negative for: Respiratory Distress, Accessory Muscle Use, Wheezes, Rales, Retracting Cardiovascular: Positive for: Regular Rate and Rhythm, Normal S1, S2, Peripheal Pulses Present. Negative for: Murmurs, Irregular Rhythm, Tachycardic, Bradycardic Abdomen: Positive for: Distention, Normal Bowel Sounds. Negative for: Tenderness, Peritoneal Signs, Rebound, Guarding Rectal: Positive for: Other (external hemorrhoids noted, brown stool) Upper Extremity: Positive for: Normal Inspection, Capillary Refill < 2s. Negative for: Cyanosis, Edema Lower Extremity: Positive for: Normal Inspection, Capillary Refill < 2 s. Negative for: Edema, CALF TENDERNESS Neurological: Positive for: GCS=15, CN II-XII Intact, Speech Normal, Motor Func Grossly Intact, Normal Sensory Function Psychiatric: Positive for: Alert, Oriented x 3 - Medications Active Medications: Active Medications Generic Name Dose Route Start Last Admin Trade Name Freq PRN Reason Stop Dose Admin Levetiracetam 500 mg/ Sodium 105 mls @ 210 mls/hr 01/30/18 21:00 02/02/18 08: 43 Chloride IVPB 210 mls/hr Q12 JANNIE Administration Piperacillin Sod/Tazobactam 100 mls @ 100 mls/hr 01/30/18 17:00 02/02/18 01: 29 Sod 4.5 gm/ Sodium Chloride IVPB 100 mls/hr Q8 JANNIE Administration Protocol Metronidazole 100 mls @ 100 mls/hr 01/30/18 17:00 02/02/18 01:28 Flagyl 500mg/100ml Ns IVPB 100 mls/hr Q8 JANNIE Administration Protocol Pantoprazole Sodium 40 mg/ 100 mls @ 20 mls/hr 01/30/18 21:45 02/02/18 00:25 Sodium Chloride IVPB 20 mls/hr Q5H JANNIE Administration 8 MG/HR Folic Acid 1 mg/ Sodium 100.2 mls @ 60 mls/hr 01/31/18 11:45 02/01/18 10:27 Chloride IVPB 60 mls/hr DAILY JANNIE Administration Fluconazole 50 mls @ 50 mls/hr 01/31/18 14:15 02/02/18 08:40 Diflucan Iv 100 Mg/50 Ml Ns IVPB 50 mls/hr DAILY JANNIE Administration Protocol Levetiracetam 500 mg 01/30/18 14:15 Keppra PO Q12H JANNIE Lidocaine 1 ea 01/30/18 14:30 02/02/18 08:44 Lidoderm TD 1 ea DAILY JANNIE Administration Lorazepam 1 mg 01/30/18 13:43 Ativan IVP STAT PRN Symptoms of alcohol withdrawl Ondansetron HCl 4 mg 01/30/18 14:08 01/30/18 16:34 Zofran Inj IVP 4 mg Q6 PRN Administration Nausea/Vomiting Thiamine HCl 100 mg 01/31/18 11:45 02/02/18 08:45 Vitamin B1 Inj IM 100 mg DAILY JANNIE Administration Tobramycin Sulfate 2 drop 02/01/18 18:14 02/02/18 06:03 Tobrex 0.3% Ophth Soln OU Not Given Q6 JANNIE - Patient Studies Lab Studies: Microbiology Studies 01/31/18 14:48 Blood Culture - Preliminary Blood-Venous NO GROWTH AFTER 24 HOURS 01/31/18 14:38 Blood Culture - Preliminary Blood-Venous NO GROWTH AFTER 24 HOURS 01/30/18 14:00 Blood Culture - Preliminary Blood-Venous NO GROWTH AFTER 48 HOURS 01/30/18 18:19 MRSA Culture (Admit) - Final Nose MRSA NOT DETECTED 01/31/18 06:45 Urine Culture - Final Urine No Growth (<1,000 CFU/ML) Lab Studies 02/02/18 02/02/18 02/02/18 Range/Units 08:22 06:57 06:57 WBC 3.9 L 3.2 L (4.8-10.8) K/uL RBC 2.89 L 2.71 L (4.40-5.90) Mil/uL Hgb 8.5 L 7.9 L (12.0-18.0) g/dL Hct 24.7 L 23.6 L (35.0-51.0) % MCV 85.6 87.0 (80.0-94.0) fl MCH 29.4 29.0 (27.0-31.0) pg MCHC 34.4 33.4 (33.0-37.0) g/dL RDW 21.0 H 20.5 H (11.5-14.5) % Plt Count 57 L 53 L (130-400) K/uL MPV (7.2-11.7) fl Neut % (Auto) (50.0-75.0) % Lymph % (Auto) (20.0-40.0) % [place] % (Auto) (0.0-10.0) % Eos % (Auto) (0.0-4.0) % Baso % (Auto) (0.0-2.0) % Neut # (Auto) (1.8-7.0) K/uL Lymph # (Auto) (1.0-4.3) K/uL [place] # (Auto) (0.0-0.8) K/uL Eos # (Auto) (0.0-0.7) K/uL Baso # (Auto) (0.0-0.2) K/uL Sodium 137 (132-148) mmol/l Potassium 3.1 L (3.6-5.0) MMOL/L Chloride 114 H (98-107) mmol/L Carbon Dioxide 18 L (22-30) mmol/L Anion Gap 8 L (10-20) BUN 22 H (9-20) mg/dl Creatinine 0.6 L (0.8-1.5) mg/dl Est GFR ( Amer) > 60 Est GFR (Non-Af Amer) > 60 Random Glucose 70 L (75-110) mg/dL Calcium 6.9 L (8.4-10.2) mg/dL Blood Type Antibody Screen Crossmatch BBK History Checked 02/02/18 02/01/18 02/01/18 Range/Units 04:35 20:50 15:56 WBC 3.5 L 3.3 L 3.3 L (4.8-10.8) K/uL RBC 2.71 L 2.72 L 2.70 L (4.40-5.90) Mil/uL Hgb 7.9 L 7.9 L 7.8 L (12.0-18.0) g/dL Hct 23.5 L 23.7 L 23.5 L (35.0-51.0) % MCV 86.8 87.0 87.0 (80.0-94.0) fl MCH 29.1 29.0 28.9 (27.0-31.0) pg MCHC 33.5 33.3 33.2 (33.0-37.0) g/dL RDW 20.9 H 20.6 H 20.4 H (11.5-14.5) % Plt Count 49 L 49 L 46 L (130-400) K/uL MPV 7.4 (7.2-11.7) fl Neut % (Auto) 64.6 (50.0-75.0) % Lymph % (Auto) 18.6 L (20.0-40.0) % [place] % (Auto) 10.2 H (0.0-10.0) % Eos % (Auto) 6.3 H (0.0-4.0) % Baso % (Auto) 0.3 (0.0-2.0) % Neut # (Auto) 2.3 (1.8-7.0) K/uL Lymph # (Auto) 0.6 L (1.0-4.3) K/uL [place] # (Auto) 0.4 (0.0-0.8) K/uL Eos # (Auto) 0.2 (0.0-0.7) K/uL Baso # (Auto) 0.0 (0.0-0.2) K/uL Sodium (132-148) mmol/l Potassium (3.6-5.0) MMOL/L Chloride (98-107) mmol/L Carbon Dioxide (22-30) mmol/L Anion Gap (10-20) BUN (9-20) mg/dl Creatinine (0.8-1.5) mg/dl Est GFR ( Amer) Est GFR (Non-Af Amer) Random Glucose (75-110) mg/dL Calcium (8.4-10.2) mg/dL Blood Type Antibody Screen Crossmatch BBK History Checked 02/01/18 01/30/18 Range/Units 08:42 12:00 WBC (4.8-10.8) K/uL RBC (4.40-5.90) Mil/uL Hgb (12.0-18.0) g/dL Hct (35.0-51.0) % MCV (80.0-94.0) fl MCH (27.0-31.0) pg MCHC (33.0-37.0) g/dL RDW (11.5-14.5) % Plt Count (130-400) K/uL MPV (7.2-11.7) fl Neut % (Auto) (50.0-75.0) % Lymph % (Auto) (20.0-40.0) % [place] % (Auto) (0.0-10.0) % Eos % (Auto) (0.0-4.0) % Baso % (Auto) (0.0-2.0) % Neut # (Auto) (1.8-7.0) K/uL Lymph # (Auto) (1.0-4.3) K/uL [place] # (Auto) (0.0-0.8) K/uL Eos # (Auto) (0.0-0.7) K/uL Baso # (Auto) (0.0-0.2) K/uL Sodium (132-148) mmol/l Potassium (3.6-5.0) MMOL/L Chloride (98-107) mmol/L Carbon Dioxide (22-30) mmol/L Anion Gap (10-20) BUN (9-20) mg/dl Creatinine (0.8-1.5) mg/dl Est GFR ( Amer) Est GFR (Non-Af Amer) Random Glucose (75-110) mg/dL Calcium (8.4-10.2) mg/dL Blood Type O POSITIVE O POSITIVE Antibody Screen Negative Negative Crossmatch See Detail See Detail BBK History Checked Patient has bt Patient has bt Laboratory Results - last 24 hr 01/30/18 02/01/18 02/01/18 12:00 08:42 15:56 WBC 3.3 L RBC 2.70 L Hgb 7.8 L Hct 23.5 L MCV 87.0 MCH 28.9 MCHC 33.2 RDW 20.4 H Plt Count 46 L MPV Neut % (Auto) Lymph % (Auto) [place] % (Auto) Eos % (Auto) Baso % (Auto) Neut # (Auto) Lymph # (Auto) [place] # (Auto) Eos # (Auto) Baso # (Auto) Sodium Potassium Chloride Carbon Dioxide Anion Gap BUN Creatinine Est GFR ( Amer) Est GFR (Non-Af Amer) Random Glucose Calcium Blood Type O POSITIVE O POSITIVE Antibody Screen Negative Negative Crossmatch See Detail See Detail BBK History Checked Patient has bt Patient has bt 02/01/18 02/02/18 02/02/18 20:50 04:35 06:57 WBC 3.3 L 3.5 L 3.2 L RBC 2.72 L 2.71 L 2.71 L Hgb 7.9 L 7.9 L 7.9 L Hct 23.7 L 23.5 L 23.6 L MCV 87.0 86.8 87.0 MCH 29.0 29.1 29.0 MCHC 33.3 33.5 33.4 RDW 20.6 H 20.9 H 20.5 H Plt Count 49 L 49 L 53 L MPV 7.4 Neut % (Auto) 64.6 Lymph % (Auto) 18.6 L [place] % (Auto) 10.2 H Eos % (Auto) 6.3 H Baso % (Auto) 0.3 Neut # (Auto) 2.3 Lymph # (Auto) 0.6 L [place] # (Auto) 0.4 Eos # (Auto) 0.2 Baso # (Auto) 0.0 Sodium Potassium Chloride Carbon Dioxide Anion Gap BUN Creatinine Est GFR ( Amer) Est GFR (Non-Af Amer) Random Glucose Calcium Blood Type Antibody Screen Crossmatch BBK History Checked 02/02/18 02/02/18 06:57 08:22 WBC 3.9 L RBC 2.89 L Hgb 8.5 L Hct 24.7 L MCV 85.6 MCH 29.4 MCHC 34.4 RDW 21.0 H Plt Count 57 L MPV Neut % (Auto) Lymph % (Auto) [place] % (Auto) Eos % (Auto) Baso % (Auto) Neut # (Auto) Lymph # (Auto) [place] # (Auto) Eos # (Auto) Baso # (Auto) Sodium 137 Potassium 3.1 L Chloride 114 H Carbon Dioxide 18 L Anion Gap 8 L BUN 22 H Creatinine 0.6 L Est GFR ( Amer) > 60 Est GFR (Non-Af Amer) > 60 Random Glucose 70 L Calcium 6.9 L Blood Type Antibody Screen Crossmatch BBK History Checked Fingerstick Blood Sugar Results: 114 Critical Care Progress Note - Nutrition Nutrition: Nutrition Category Date Time Status Liquid Diet [DIET] Diets 02/02/18 Breakfast Active Assessment/Plan (1) Upper GI hemorrhage Current Visit: Yes Status: Resolved Priority: High Comment: Evaluated by GI, underwent urgent EJD yesterday 01/31/2018 showing ulcerative duodentitis, grade II esophageal varices at lower 1/3, alcoholic gastritis, duodenal ulcers with No evidence of active bleeding Received Protonix 80 mg iv x 1 dose and currently on Protonix drip receive total of 8U of packed RBC and 2U FFP with H/H has been stable over last 24H Two large bore peripheral catheters Suplemental O2 No indication for octreotide drip Serial CBCs q 8 /HR GI consult appretiated Patient BP and HR stable DVT PPx: SCD (2) Alcohol abuse with intoxication Current Visit: Yes Status: Acute Priority: High Comment: Continue Folic acid and thiamine Ativan 1 mg IVP Q6 PRN (3) Alcohol withdrawal seizure Current Visit: Yes Status: Acute Priority: Medium Comment: Continue Keppra 500 mg PO Q12H (4) Abdominal pain Current Visit: Yes Status: Resolved Priority: Medium (5) Bacteremia Current Visit: No Status: Acute Priority: Medium Comment: Blood cultures 01/30, 01/31 negative ID consulted for colitis /typhlitis Piperacillin Sod/Tazobactam 4.5 gm IVPB Q8 JANNIE Flagyl 500mg IVPB Q8 JANNIE (6) Esophageal and gastric varices Current Visit: Yes Status: Acute Priority: High (7) Generalized seizure Current Visit: Yes Status: Acute Priority: High Comment: Continue keppra 500 q12H (8) Hematemesis Current Visit: Yes Status: Acute Priority: High (9) DVT prophylaxis Current Visit: Yes Status: Acute Priority: High Comment: - DVT PPx: SCD
[2018-02-02 12:57] LABS: HEMOGLOBIN 8.7 g/dL (12.0-18.0); MEAN CELL VOLUME 87.1 fl (80.0-94.0); MEAN CORPUSCULAR HEMOGLOBIN 29.4 pg (27.0-31.0); MEAN CORPUSCULAR HGB CONC 33.7 g/dL (33.0-37.0); RBC 2.97 Mil/uL (4.40-5.90); RED CELL DISTRIBUTION WIDTH 21.3 % (11.5-14.5); WHITE BLOOD COUNT 5.1 K/uL (4.8-10.8)
[2018-02-02] MEDS ORDERED: Potassium Chloride 20 mEq/15 ml LIQ UD PO ONE (14:43)
[2018-02-02] MEDS: Potassium CL 10 MEQ/50 ML 50 ML IVPB SCH ×2 (15:12→20:44)
--- NOTE | 2018-02-02 16:14 | CP.PCM.PN ---
Subjective - Date & Time of Evaluation Date of Evaluation: 02/02/18 Time of Evaluation: 08:00 - Subjective Subjective: Patient awake and alert. No observed GI bleed. Objective - Vital Signs/Intake and Output Vital Signs (last 24 hours): Temp Pulse Resp BP Pulse Ox 98.8 F 77 14 117/49 L 95 02/02/18 12:00 02/02/18 14:00 02/02/18 14:00 02/02/18 14:00 02/02/18 12:00 - Medications Medications: Current Medications Levetiracetam 500 mg/ Sodium (Chloride) 105 mls @ 210 mls/hr IVPB Q12 JANNIE Last Admin: 02/02/18 08:43 Dose: 210 mls/hr Piperacillin Sod/Tazobactam (Sod 4.5 gm/ Sodium Chloride) 100 mls @ 100 mls/hr IVPB Q8 JANNIE PRN Reason: Protocol Last Admin: 02/02/18 11:16 Dose: 100 mls/hr Metronidazole (Flagyl 500mg/100ml Ns) 100 mls @ 100 mls/hr IVPB Q8 JANNIE PRN Reason: Protocol Last Admin: 02/02/18 11:08 Dose: 100 mls/hr Pantoprazole Sodium 40 mg/ (Sodium Chloride) 100 mls @ 20 mls/hr IVPB Q5H JANNIE PRN Reason: 8 MG/HR Last Admin: 02/02/18 15:16 Dose: 20 mls/hr Folic Acid 1 mg/ Sodium (Chloride) 100.2 mls @ 60 mls/hr IVPB DAILY J[facility] Last Admin: 02/01/18 10:27 Dose: 60 mls/hr Fluconazole (Diflucan Iv 100 Mg/50 Ml Ns) 50 mls @ 50 mls/hr IVPB DAILY JANNIE PRN Reason: Protocol Last Admin: 02/02/18 08:40 Dose: 50 mls/hr Potassium Chloride (Potassium Cl 10meq/50ml Sterile Water) 50 mls @ 50 mls/hr IVPB Q1 JANNIE Stop: 02/02/18 16:59 Last Admin: 02/02/18 15:12 Dose: 50 mls/hr Levetiracetam (Keppra) 500 mg PO Q12H JANNIE Lidocaine (Lidoderm) 1 ea TD DAILY JANN[facility] Last Admin: 02/02/18 08:44 Dose: 1 ea Lorazepam (Ativan) 1 mg IVP STAT PRN PRN Reason: Symptoms of alcohol withdrawl Ondansetron HCl (Zofran Inj) 4 mg IVP Q6 PRN PRN Reason: Nausea/Vomiting Last Admin: 01/30/18 16:34 Dose: 4 mg Thiamine HCl (Vitamin B1 Inj) 100 mg IM DAILY JANNIE Last Admin: 02/02/18 08:45 Dose: 100 mg Tobramycin Sulfate (Tobrex 0.3% Ophth Soln) 2 drop OU Q6 JANNIE Last Admin: 02/02/18 11:15 Dose: 2 drop - Labs Labs: 02/02/18 12:50 02/02/18 06:57 PT 23.6 Seconds (9.8-13.1) H 01/31/18 21:03 INR 2.1 01/31/18 21:03 APTT 28.8 Seconds (25.6-37.1) 01/31/18 21:03 - Head Exam Head Exam: ATRAUMATIC - Eye Exam Eye Exam: Normal appearance - Neck Exam Neck Exam: Full ROM - Respiratory Exam Respiratory Exam: Clear to Ausculation Bilateral - Cardiovascular Exam Cardiovascular Exam: REGULAR RHYTHM - GI/Abdominal Exam GI & Abdominal Exam: Soft, Normal Bowel Sounds. absent: Tenderness Assessment and Plan (1) GI bleed Assessment & Plan: Hgb stable for past 2 days. Has large duodenal ulcer. Will recheck with endoscopy on Wednesday. Continue IV Protonix.May advance diet. Status: Acute
--- NOTE | 2018-02-02 16:34 | CP.PCM.PCO ---
Assessment/Plan - Assessment and Plan (Free Text) Assessment: Spoke with patient at length He is aware his liver is doing poorly Advised pt to stop drinking He is aware he has a limited life expectancy pt says he stopped drinking in the past after a stay at [facility] consult placed
[2018-02-03] MEDS: metroNIDAZOLE 500mg/100ml NS 100 ML IVPB SCH ×3 (00:51→16:34)
[2018-02-03] MEDS: Piperacillin/Tazobact 4.5 GM in Sodium Chloride 0.9% 100 ML IVPB SCH ×3 (00:51→18:29)
[2018-02-03] MEDS: Pantoprazole 40 MG in Sodium Chloride 0.9% 100 ML IVPB SCH ×6 (00:52→21:23)
[2018-02-03] MEDS: Tobramycin 0.3% OPHT SOLN OU SCH ×4 (04:00→21:24)
[2018-02-03] MEDS: Lidocaine 5% Patch TD SCH (08:33)
[2018-02-03] MEDS: Fluconazole IV 100mg/50 ml NS 50 ML IVPB SCH (08:33)
[2018-02-03] MEDS: Thiamine 100 mg/ml Inj IM SCH (08:34)
--- NOTE | 2018-02-03 08:43 | CP.PCM.PN ---
Subjective - Date & Time of Evaluation Date of Evaluation: 02/03/18 Time of Evaluation: 07:30 - Subjective Subjective: GI progress note for Dr. Swartz Pt seen and examined at bedside this AM in the ICU. No adverse events overnight. Patient denies any nausea, vomiting, or abdominal pain. Patient is tolerating HHD. Has had no bowel movements for 2 days but is passing gas. Last BM was melenic per nursing. Objective - Vital Signs/Intake and Output Vital Signs (last 24 hours): Temp Pulse Resp BP Pulse Ox 98.8 F 90 10 L 103/51 L 95 02/03/18 05:00 02/03/18 05:00 02/03/18 05:00 02/03/18 05:00 02/02/18 12:00 - Medications Medications: Current Medications Levetiracetam 500 mg/ Sodium (Chloride) 105 mls @ 210 mls/hr IVPB Q12 JANNIE Last Admin: 02/02/18 20:32 Dose: 210 mls/hr Piperacillin Sod/Tazobactam (Sod 4.5 gm/ Sodium Chloride) 100 mls @ 100 mls/hr IVPB Q8 JANNIE PRN Reason: Protocol Last Admin: 02/03/18 00:51 Dose: 100 mls/hr Metronidazole (Flagyl 500mg/100ml Ns) 100 mls @ 100 mls/hr IVPB Q8 JANNIE PRN Reason: Protocol Last Admin: 02/03/18 08:34 Dose: 100 mls/hr Pantoprazole Sodium 40 mg/ (Sodium Chloride) 100 mls @ 20 mls/hr IVPB Q5H JANNIE PRN Reason: 8 MG/HR Last Admin: 02/03/18 06:19 Dose: 20 mls/hr Folic Acid 1 mg/ Sodium (Chloride) 100.2 mls @ 60 mls/hr IVPB DAILY JANNIE Last Admin: 02/02/18 17:05 Dose: 60 mls/hr Fluconazole (Diflucan Iv 100 Mg/50 Ml Ns) 50 mls @ 50 mls/hr IVPB DAILY JANNIE PRN Reason: Protocol Last Admin: 02/03/18 08:33 Dose: 50 mls/hr Levetiracetam (Keppra) 500 mg PO Q12H JANNIE Lidocaine (Lidoderm) 1 ea TD DAILY JANNIE Last Admin: 02/03/18 08:33 Dose: 1 ea Lorazepam (Ativan) 1 mg IVP STAT PRN PRN Reason: Symptoms of alcohol withdrawl Ondansetron HCl (Zofran Inj) 4 mg IVP Q6 PRN PRN Reason: Nausea/Vomiting Last Admin: 01/30/18 16:34 Dose: 4 mg Thiamine HCl (Vitamin B1 Inj) 100 mg IM DAILY JANNIE Last Admin: 02/03/18 08:34 Dose: 100 mg Tobramycin Sulfate (Tobrex 0.3% Ophth Soln) 2 drop OU Q6 JANNIE Last Admin: 02/02/18 22:49 Dose: 2 drop - Labs Labs: 02/02/18 12:50 02/02/18 06:57 PT 23.6 Seconds (9.8-13.1) H 01/31/18 21:03 INR 2.1 01/31/18 21:03 APTT 28.8 Seconds (25.6-37.1) 01/31/18 21:03 - Constitutional Appears: Well, Non-toxic, No Acute Distress - Head Exam Head Exam: ATRAUMATIC, NORMOCEPHALIC - Eye Exam Eye Exam: Normal appearance. absent: Conjunctival injection, Scleral icterus - ENT Exam ENT Exam: Mucous Membranes Moist, Normal Oropharynx - Respiratory Exam Respiratory Exam: NORMAL BREATHING PATTERN. absent: Accessory Muscle Use, Respiratory Distress - Cardiovascular Exam Cardiovascular Exam: RRR - GI/Abdominal Exam GI & Abdominal Exam: Distended (mild), Soft, Normal Bowel Sounds. absent: Tenderness, Rebound - Extremities Exam Extremities Exam: absent: Calf Tenderness, Pedal Edema, Tenderness - Neurological Exam Neurological Exam: Alert, Awake, Oriented x3 - Psychiatric Exam Psychiatric exam: Normal Affect, Normal Mood - Skin Skin Exam: Dry, Normal Color, Warm Assessment and Plan - Assessment and Plan (Free Text) Assessment: 52M with hematemesis and melena concerning for GI bleed--esophageal varices and duodenal ulcers with no active bleeding on EGD 01/31. Plan: Continue to trend H/H--slight drop today to 8.1/24.0 from 8.7/25.4 yesterday EGD 02/04 to re-examine for source of bleeding NPO after midnight Will follow up bowel function and c. diff results Encouraged ambulation and SCD use Discuss with Dr. Swartz, who agrees with above Padmini Healy, PGY2
[2018-02-03] MEDS: levETIRAcetam 500 MG in Sodium Chloride 0.9% 100 ML IVPB SCH ×2 (09:57→21:23)
[2018-02-03 10:31] LABS: HEMOGLOBIN 8.1 g/dL (12.0-18.0); MEAN CORPUSCULAR HEMOGLOBIN 29.4 pg (27.0-31.0); MEAN CORPUSCULAR HGB CONC 33.8 g/dL (33.0-37.0); RBC 2.76 Mil/uL (4.40-5.90); RED CELL DISTRIBUTION WIDTH 21.3 % (11.5-14.5); WHITE BLOOD COUNT 2.9 K/uL (4.8-10.8)
[2018-02-03 10:40] LABS: BLOOD UREA NITROGEN 15 mg/dl (9-20); CALCIUM 6.9 mg/dL (8.4-10.2); GFR NON-AFRICAN AMERICAN > 60
--- NOTE | 2018-02-03 11:20 | CP.PCM.PN ---
Subjective - Date & Time of Evaluation Date of Evaluation: 02/03/18 Time of Evaluation: 07:35 - Subjective Subjective: No acute overnight events. Pt is seen and examined by bedside this AM. States that he feels fine, normal BM this AM, without blood. Pt no longer endorsing any abdominal pain; but endorsing R shoulder pain (improving). Good PO intake. Objective - Vital Signs/Intake and Output Vital Signs (last 24 hours): Temp Pulse Resp BP Pulse Ox 98.8 F 90 10 L 103/51 L 95 02/03/18 05:00 02/03/18 09:00 02/03/18 05:00 02/03/18 05:00 02/02/18 12:00 - Medications Medications: Current Medications Levetiracetam 500 mg/ Sodium (Chloride) 105 mls @ 210 mls/hr IVPB Q12 JANN[facility] Last Admin: 02/03/18 09:57 Dose: 210 mls/hr Piperacillin Sod/Tazobactam (Sod 4.5 gm/ Sodium Chloride) 100 mls @ 100 mls/hr IVPB Q8 JANNIE PRN Reason: Protocol Last Admin: 02/03/18 00:51 Dose: 100 mls/hr Metronidazole (Flagyl 500mg/100ml Ns) 100 mls @ 100 mls/hr IVPB Q8 JANNIE PRN Reason: Protocol Last Admin: 02/03/18 08:34 Dose: 100 mls/hr Pantoprazole Sodium 40 mg/ (Sodium Chloride) 100 mls @ 20 mls/hr IVPB Q5H JANNIE PRN Reason: 8 MG/HR Last Admin: 02/03/18 06:19 Dose: 20 mls/hr Folic Acid 1 mg/ Sodium (Chloride) 100.2 mls @ 60 mls/hr IVPB DAILY [facility]ANN[facility] Last Admin: 02/02/18 17:05 Dose: 60 mls/hr Fluconazole (Diflucan Iv 100 Mg/50 Ml Ns) 50 mls @ 50 mls/hr IVPB DAILY [facility]ANNIE PRN Reason: Protocol Last Admin: 02/03/18 08:33 Dose: 50 mls/hr Levetiracetam (Keppra) 500 mg PO Q12H [facility]ANNIE Lidocaine (Lidoderm) 1 ea TD DAILY [facility] Last Admin: 02/03/18 08:33 Dose: 1 ea Lorazepam (Ativan) 1 mg IVP STAT PRN PRN Reason: Symptoms of alcohol withdrawl Ondansetron HCl (Zofran Inj) 4 mg IVP Q6 PRN PRN Reason: Nausea/Vomiting Last Admin: 01/30/18 16:34 Dose: 4 mg Thiamine HCl (Vitamin B1 Inj) 100 mg IM DAILY [facility] Last Admin: 02/03/18 08:34 Dose: 100 mg Tobramycin Sulfate (Tobrex 0.3% Ophth Soln) 2 drop OU Q6 JANNIE Last Admin: 02/03/18 09:59 Dose: 2 drop - Labs Labs: 02/03/18 10:20 02/03/18 09:24 PT 23.6 Seconds (9.8-13.1) H 01/31/18 21:03 INR 2.1 01/31/18 21:03 APTT 28.8 Seconds (25.6-37.1) 01/31/18 21:03 - Constitutional Appears: No Acute Distress, Cachectic - Head Exam Head Exam: ATRAUMATIC - Eye Exam Eye Exam: EOMI Additional comments: Mild erythema noted on R eye; no exudates - ENT Exam ENT Exam: Mucous Membranes Moist - Neck Exam Additional comments: R IJ intact, dressing intact - Respiratory Exam Respiratory Exam: Clear to Ausculation Bilateral. absent: Wheezes - Cardiovascular Exam Cardiovascular Exam: REGULAR RHYTHM, +S1, +S2 - GI/Abdominal Exam GI & Abdominal Exam: Distended (mild distension, firm ), Soft, Normal Bowel Sounds. absent: Guarding, Tenderness - Extremities Exam Extremities Exam: Pedal Edema (mild pedel edema ). absent: Calf Tenderness Additional comments: R hand peripheral line - Neurological Exam Neurological Exam: Alert, Awake - Psychiatric Exam Psychiatric exam: Normal Mood - Skin Skin Exam: Pallor Assessment and Plan - Assessment and Plan (Free Text) Assessment: Assessment/Plan 52 YO with PMHx of ETOH abuse, unwitnessed seizures, cirrhosis (s/p TIPS), hepatic encephalograph is admitted for acute GI bleeds requiring multiple blood transfusions. Acute GI bleeding -improving, h/h remains stable -s/p 8 units of PRBC transfusions and 2 FFPs -GI consulted, Dr. Swartz, appreciate recs; EGD done emergently 01/31/2018: ulcerative duodentitis, grade II esophageal varices at lower /, alcoholic gastritis, duodenal ulcers -Colonoscopy (06/2017) Poor prep, internal/external hemorrhoids -cont protonix 20mLs/hr IVPB Q5H (8g/hr) Zofran 4 mg IV Q6 PRN -EGD in AM with GI, NPO after midnight, IVF -serial CBC Typhilitis/colitis/duodenitis -present on abd CT 01/30/2018 -ID on consult, recommends repeat CT. c/w Zosyn 4.5g IV (D5), Metronidazole 500mg (D5) and fluconazole IV 100mg/50mL NS (D4) -cdiff toxin a/b and stool cx pending Pancytopenia -chronic -likely 2/2 to live failure vs bone marrow suppression 2/2 to etoh abuse/liver failure -platelets 50 s/p Vitamin K 5mg PO once 01/31/2018 -follow up labs in AM and trend Right shoulder pain -improving -s/p fall 01/23/2018 -Right shoulder x-ray negative for fracture -Lidoderm patch 1 TD QD PRN Right > left eye pain -improving -advised patient to remove eye contact lenses. Patient only removed right eye contact lens, refused to remove the left one. -2/2 prolonged eye contact lens use -c/w tobrex 2 drops Q6 OU Hx of Seizures -Keppra 500 IV Q12 Cirrhosis 2/2 ETOH abuse -Meld score: 19; Wlyhn-Mjcwhlfd-Hstv Score: 11C -alcohol level 57 in ED -[facility] protocol Q1hrs -Ativan 1 mg PRN Hx of Staph bacteremia -stool cx pending -01/31: Bcx x 48 no growth; Ucx final no growth Diet: -Regular diet -npo after midnight DVT prophylaxis -SCDs
--- NOTE | 2018-02-03 18:22 | US ---
Date of service: 02/03/2018 PROCEDURE: Limited abdominal ultrasound HISTORY: r/o ascites COMPARISON: 01/30/2018 CT abdomen and pelvis.. TECHNIQUE: Standard protocol for this study/examination. FINDINGS: Incompletely visualized intra-abdominal ascites primarily right upper quadrant, left upper quadrant and there is flank and pelvic ascites. IMPRESSION: Intra-abdominal and pelvic ascites.
[2018-02-04] MEDS: Piperacillin/Tazobact 4.5 GM in Sodium Chloride 0.9% 100 ML IVPB SCH ×3 (00:35→17:48)
[2018-02-04] MEDS: Sodium Chloride 0.9% 1,000 ML IV SCH ×2 (00:35→10:42)
[2018-02-04] MEDS: metroNIDAZOLE 500mg/100ml NS 100 ML IVPB SCH ×3 (00:36→16:27)
[2018-02-04] MEDS: Pantoprazole 40 MG in Sodium Chloride 0.9% 100 ML IVPB SCH ×4 (02:04→21:37)
[2018-02-04] MEDS: Tobramycin 0.3% OPHT SOLN OU SCH ×4 (04:49→21:34)
[2018-02-04 05:22] LABS: BASO % 0.5 % (0.0-2.0); EOS # 0.2 K/uL (0.0-0.7); EOS % 5.9 % (0.0-4.0); HEMOGLOBIN 7.8 g/dL (12.0-18.0); LYMPH # 0.8 K/uL (1.0-4.3); LYMPH % 20.2 % (20.0-40.0); MEAN CELL VOLUME 87.3 fl (80.0-94.0); MEAN CORPUSCULAR HEMOGLOBIN 29.3 pg (27.0-31.0); MEAN CORPUSCULAR HGB CONC 33.6 g/dL (33.0-37.0); MEAN PLATELET VOLUME 7.4 fl (7.2-11.7); MONO # 0.6 K/uL (0.0-0.8); MONO % 15.7 % (0.0-10.0); NEUT # 2.2 K/uL (1.8-7.0); NEUT % 57.7 % (50.0-75.0); RBC 2.67 Mil/uL (4.40-5.90); RED CELL DISTRIBUTION WIDTH 21.4 % (11.5-14.5); WHITE BLOOD COUNT 3.8 K/uL (4.8-10.8)
[2018-02-04 05:58] LABS: ALB/GLOB RATIO 0.6 (1.0-2.1); ALBUMIN 1.8 g/dL (3.5-5.0); ALT/SGPT 39 U/L (21-72); AST/SGOT 68 U/L (17-59); BLOOD UREA NITROGEN 11 mg/dl (9-20); CALCIUM 6.9 mg/dL (8.4-10.2); GFR NON-AFRICAN AMERICAN > 60
[2018-02-04] MEDS ORDERED: Propofol 10 mg/ml Inj (20 ML) ONE (07:25)
[2018-02-04] MEDS ORDERED: Midazolam 2 MG/2 ML VIAL ONE (07:25)
[2018-02-04] MEDS ORDERED: Benzocaine/Butamben/Tetracai 14-2-2% TOP Spray TOP ONE (07:26)
[2018-02-04] MEDS ORDERED: Lactated Ringer's 500 ML IV ONE (08:22)
--- NOTE | 2018-02-04 09:00 | CP.PCM.PN ---
Subjective - Date & Time of Evaluation Date of Evaluation: 02/04/18 Time of Evaluation: 08:10 - Subjective Subjective: No acute overnight events. Pt has reamin NPO this AM for EGD this AM with GI. Pt states that he is hungry, but is aware that he cannot eat before the procedure. Endorsing R shoulder pain. Denies abdominal pain, chest pain, dyspnea. Remains afebrile. Objective - Vital Signs/Intake and Output Vital Signs (last 24 hours): Temp Pulse Resp BP Pulse Ox 99 F 84 25 H 121/58 L 97 02/04/18 08:24 02/04/18 08:24 02/04/18 05:00 02/04/18 08:24 02/04/18 08:24 Intake and Output: 02/04/18 02/04/18 06:59 18:59 Intake Total 100 Balance 100 - Medications Medications: Current Medications Levetiracetam 500 mg/ Sodium (Chloride) 105 mls @ 210 mls/hr IVPB Q12 JANNIE Last Admin: 02/03/18 21:23 Dose: 210 mls/hr Piperacillin Sod/Tazobactam (Sod 4.5 gm/ Sodium Chloride) 100 mls @ 100 mls/hr IVPB Q8 JANNIE PRN Reason: Protocol Last Admin: 02/04/18 00:35 Dose: 100 mls/hr Metronidazole (Flagyl 500mg/100ml Ns) 100 mls @ 100 mls/hr IVPB Q8 JANNIE PRN Reason: Protocol Last Admin: 02/04/18 00:36 Dose: 100 mls/hr Pantoprazole Sodium 40 mg/ (Sodium Chloride) 100 mls @ 20 mls/hr IVPB Q5H JANNIE PRN Reason: 8 MG/HR Last Admin: 02/04/18 06:51 Dose: 20 mls/hr Folic Acid 1 mg/ Sodium (Chloride) 100.2 mls @ 60 mls/hr IVPB DAILY JANNIE Last Admin: 02/03/18 11:23 Dose: 60 mls/hr Fluconazole (Diflucan Iv 100 Mg/50 Ml Ns) 50 mls @ 50 mls/hr IVPB DAILY JANNIE PRN Reason: Protocol Last Admin: 02/03/18 08:33 Dose: 50 mls/hr Sodium Chloride (Sodium Chloride 0.9%) 1,000 mls @ 120 mls/hr IV .Q8H20M [facility] Stop: 02/04/18 15:16 Last Admin: 02/04/18 00:35 Dose: 120 mls/hr Levetiracetam (Keppra) 500 mg PO Q12H [facility] Lidocaine (Lidoderm) 1 ea TD DAILY [facility] Last Admin: 02/03/18 08:33 Dose: 1 ea Lorazepam (Ativan) 1 mg IVP STAT PRN PRN Reason: Symptoms of alcohol withdrawl Ondansetron HCl (Zofran Inj) 4 mg IVP Q6 PRN PRN Reason: Nausea/Vomiting Last Admin: 01/30/18 16:34 Dose: 4 mg Thiamine HCl (Vitamin B1 Inj) 100 mg IM DAILY [facility] Last Admin: 02/03/18 08:34 Dose: 100 mg Tobramycin Sulfate (Tobrex 0.3% Ophth Soln) 2 drop OU Q6 [facility] Last Admin: 02/04/18 04:49 Dose: 2 drop - Labs Labs: 02/04/18 04:20 02/04/18 04:20 PT 23.6 Seconds (9.8-13.1) H 01/31/18 21:03 INR 2.1 01/31/18 21:03 APTT 28.8 Seconds (25.6-37.1) 01/31/18 21:03 - Constitutional Appears: No Acute Distress - Head Exam Head Exam: ATRAUMATIC - Eye Exam Additional comments: mild conjunctivitis L eye - Neck Exam Additional comments: R IJ intact, dressing intact - Respiratory Exam Respiratory Exam: Clear to Ausculation Bilateral, NORMAL BREATHING PATTERN - Cardiovascular Exam Cardiovascular Exam: REGULAR RHYTHM, +S1, +S2 - GI/Abdominal Exam GI & Abdominal Exam: Distended, Firm, Normal Bowel Sounds. absent: Tenderness Additional comments: Unable to appreciated a fluid wave, firm abdomen - Extremities Exam Extremities Exam: absent: Calf Tenderness, Pedal Edema - Neurological Exam Neurological Exam: Alert, Awake - Skin Skin Exam: Pallor Assessment and Plan - Assessment and Plan (Free Text) Assessment: Assessment/Plan 52 YO with PMHx of ETOH abuse, unwitnessed seizures, cirrhosis (s/p TIPS), hepatic encephalograph is admitted for acute GI bleeds requiring multiple blood transfusions. Acute GI bleeding -h/h 7.8/23.3 today -s/p 8 units of PRBC transfusions and 2 FFPs -GI consulted, Dr. Swartz, appreciate recs; EGD done emergently 01/31/2018: ulcerative duodentitis, grade II esophageal varices at lower 1/3, alcoholic gastritis, duodenal ulcers -Colonoscopy (06/2017) Poor prep, internal/external hemorrhoids -cont protonix 20mLs/hr IVPB Q5H (8g/hr) Zofran 4 mg IV Q6 PRN -EGD in AM with GI, pending findings -serial CBC Ascites, hypoalbuminia -Abdomen firm, distended -likely 2/2 to cirrhosis -Abdomen u/s 02/03: intra-abdominal and pelvic ascites -albumin 1.8 -GI consulted; recs albumin and IR guided drainage -Per GI, will give 1x dose of 12.5g of albumin, and will replace albumin as per amount drained with IR -On Zosyn, covers SBP -will consult IR for paracentesis Grade II esophageal Varices -EGD 01/31/18: grade II esophageal varices at lower 1/3 -s/p TIPS procedure in the past -GI on board; per GI pt does not need a beta shae at this time Typhilitis/colitis/duodenitis -present on abd CT 01/30/2018 -ID on consult c/w Zosyn 4.5g IV (D6), Metronidazole 500mg (D6) and fluconazole IV 100mg/50mL NS (D5) -as per ID will repeat CT in AM -c. diff toxin a/b and stool cx pending Pancytopenia -chronic -ANC 2193 today -likely 2/2 to live failure vs bone marrow suppression 2/2 to etoh abuse/liver failure -platelets 50 s/p Vitamin K 5mg PO once 01/31/2018 -follow up labs in AM and trend Right shoulder pain -improving -s/p fall 01/23/2018 -Right shoulder x-ray negative for fracture -Lidoderm patch 1 TD QD PRN Right > left eye pain -improving -advised patient to remove eye contact lenses. Patient only removed right eye contact lens, refused to remove the left one. -2/2 prolonged eye contact lens use -c/w tobrex 2 drops Q6 OU Hx of Seizures -Keppra 500 IV Q12 Cirrhosis 2/2 ETOH abuse -Meld score: 19; Ywwhi-Aogpqbks-Fosy Score: 11C -alcohol level 57 in ED -[facility] protocol Q1hrs -Ativan 1 mg PRN Hx of Staph bacteremia -stool cx pending -01/31: Bcx x 3 days no growth; Ucx final no growth Diet: -GI hepatic diet DVT prophylaxis -SCDs
[2018-02-04] MEDS ORDERED: Albumin Human 25% (12.5 gm/50 ml) IV ONE (10:21)
--- NOTE | 2018-02-04 10:27 | CP.PCM.PN ---
Subjective - Date & Time of Evaluation Date of Evaluation: 02/04/18 Time of Evaluation: 09:00 - Subjective Subjective: Patient seen and examined at bedside in the endoscopy suite this AM. No adverse events overnight. Patient underwent EGD this AM which revealed persistent gastritis, superficial gastric ulcer without bleeding, and improving ulcers in the duodenal bulb with no sign of bleeding. Biopsies of gastric mucosa were taken. No biopsies of the ulcerations were taken in consideration of bleeding risk. Full report to follow. Patient tolerated it well. Objective - Vital Signs/Intake and Output Vital Signs (last 24 hours): Temp Pulse Resp BP Pulse Ox 98 F 78 15 99/52 L 97 02/04/18 09:12 02/04/18 09:12 02/04/18 09:12 02/04/18 09:12 02/04/18 09:12 Intake and Output: 02/04/18 02/04/18 06:59 18:59 Intake Total 200 Balance 200 - Medications Medications: Current Medications Albumin Human (Albumin Human 25% (12.5 Gm/50 Ml)) 12.5 gm IV ONCE ONE Stop: 02/04/18 10:22 Levetiracetam 500 mg/ Sodium (Chloride) 105 mls @ 210 mls/hr IVPB Q12 JANNIE Last Admin: 02/03/18 21:23 Dose: 210 mls/hr Piperacillin Sod/Tazobactam (Sod 4.5 gm/ Sodium Chloride) 100 mls @ 100 mls/hr IVPB Q8 JANNIE PRN Reason: Protocol Last Admin: 02/04/18 00:35 Dose: 100 mls/hr Metronidazole (Flagyl 500mg/100ml Ns) 100 mls @ 100 mls/hr IVPB Q8 JANNIE PRN Reason: Protocol Last Admin: 02/04/18 00:36 Dose: 100 mls/hr Pantoprazole Sodium 40 mg/ (Sodium Chloride) 100 mls @ 20 mls/hr IVPB Q5H JANNIE PRN Reason: 8 MG/HR Last Admin: 02/04/18 06:51 Dose: 20 mls/hr Folic Acid 1 mg/ Sodium (Chloride) 100.2 mls @ 60 mls/hr IVPB DAILY [facility] Last Admin: 02/03/18 11:23 Dose: 60 mls/hr Fluconazole (Diflucan Iv 100 Mg/50 Ml Ns) 50 mls @ 50 mls/hr IVPB DAILY JANNIE PRN Reason: Protocol Last Admin: 02/03/18 08:33 Dose: 50 mls/hr Sodium Chloride (Sodium Chloride 0.9%) 1,000 mls @ 120 mls/hr IV .Q8H20M [facility] Stop: 02/04/18 15:16 Last Admin: 02/04/18 00:35 Dose: 120 mls/hr Levetiracetam (Keppra) 500 mg PO Q12H [facility] Lidocaine (Lidoderm) 1 ea TD DAILY [facility] Last Admin: 02/03/18 08:33 Dose: 1 ea Lorazepam (Ativan) 1 mg IVP STAT PRN PRN Reason: Symptoms of alcohol withdrawl Ondansetron HCl (Zofran Inj) 4 mg IVP Q6 PRN PRN Reason: Nausea/Vomiting Last Admin: 01/30/18 16:34 Dose: 4 mg Thiamine HCl (Vitamin B1 Inj) 100 mg IM DAILY [facility] Last Admin: 02/03/18 08:34 Dose: 100 mg Tobramycin Sulfate (Tobrex 0.3% Ophth Soln) 2 drop OU Q6 [facility] Last Admin: 02/04/18 04:49 Dose: 2 drop - Labs Labs: 02/04/18 04:20 02/04/18 04:20 PT 23.6 Seconds (9.8-13.1) H 01/31/18 21:03 INR 2.1 01/31/18 21:03 APTT 28.8 Seconds (25.6-37.1) 01/31/18 21:03 - Constitutional Appears: Well, Non-toxic, No Acute Distress - Head Exam Head Exam: ATRAUMATIC, NORMOCEPHALIC - Eye Exam Eye Exam: Scleral icterus. absent: Conjunctival injection - ENT Exam ENT Exam: Mucous Membranes Moist, Normal Oropharynx - Respiratory Exam Respiratory Exam: NORMAL BREATHING PATTERN. absent: Accessory Muscle Use, Respiratory Distress - Cardiovascular Exam Cardiovascular Exam: RRR - GI/Abdominal Exam GI & Abdominal Exam: Distended, Soft. absent: Tenderness - Neurological Exam Neurological Exam: Alert, Awake, Oriented x3 - Psychiatric Exam Psychiatric exam: Normal Affect, Normal Mood - Skin Skin Exam: Dry, Intact, Normal Color, Warm Assessment and Plan - Assessment and Plan (Free Text) Assessment: 52M with cirrhosis with ascites s/p TIPS procedure, with resolved acute GI bleed with gastritis, gastric ulcer and healing duodenal ulcer on EGD 02/04 Plan: Follow up gastric pathology Continue to trend H/H Continue protonix Patient could benefit from a therapeutic paracentesis--recommend administration of albumin pre and post procedure depending on amount of fluid removed Low salt diet and fluid restriction to 1200cc/d for liver failure F/U c. diff once specimen obtained Discussed with Dr. Swartz, who agrees with above Padmini Healy, Pgy2
[2018-02-04] MEDS: Fluconazole IV 100mg/50 ml NS 50 ML IVPB SCH (10:39)
[2018-02-04] MEDS: levETIRAcetam 500 MG in Sodium Chloride 0.9% 100 ML IVPB SCH ×2 (10:40→20:35)
[2018-02-04] MEDS: Lidocaine 5% Patch TD SCH (10:41)
[2018-02-04] MEDS: Thiamine 100 mg/ml Inj IM SCH (10:43)
[2018-02-04 11:15] LABS: INR 1.9; PROTHROMBIN TIME 21.2 Seconds (9.8-13.1)
[2018-02-04] MEDS ORDERED: Lidocaine 1% 5ml Abboject IV ONE (12:33)
--- NOTE | 2018-02-04 12:49 | PCM.SURG1 ---
Surgeon's Initial Post Op Note - Surgeon's Notes Surgeon: Marcio Beck MD Dried Fruit Washer: NONE Type of Anesthesia: Local Pre-Operative Diagnosis: Ascites, abdominal pain Operative Findings: US showed a small amount of ascites. Diagnostic paracentesis performed. Only 70 cc of flui could be removed. Post-Operative Diagnosis: Ascites Operation Performed: US guided paracentesis. Specimen/Specimens Removed: 70 cc of yellow fluid Estimated Blood Loss: EBL {In ML}: 0 Blood Products Given: N/A Drains Used: No Drains Post-Op Condition: Fair Date of Surgery/Procedure: 02/04/18 Time of Surgery/Procedure: 12:45
[2018-02-04 13:16] LABS: BODY FLUID TYPE PERITONEAL/ASCITES
[2018-02-04 13:27] LABS: AMYLASE,BODY FLUID 32 mg/dL (NONE ESTABLISHED)
[2018-02-04 13:47] LABS: TOTAL PROTEIN,BODY FLUID < 2.0 g/dL (NONE ESTABLISHED)
[2018-02-04 14:44] LABS: BF GROSS APPEARANCE SL CLOUDY (CLEAR)
--- NOTE | 2018-02-04 14:44 | CP.PCM.PN ---
Subjective - Date & Time of Evaluation Date of Evaluation: 02/04/18 Time of Evaluation: 14:44 - Subjective Subjective: ID Note- Pt. seen and examined today in med-surg floor. s/p EGD earlier today by GI and paracenthesis by IR. minimal fluid removed. pt. w/o any fever. Objective - Vital Signs/Intake and Output Vital Signs (last 24 hours): Temp Pulse Resp BP Pulse Ox 98.4 F 80 18 126/78 97 02/04/18 12:30 02/04/18 12:45 02/04/18 12:45 02/04/18 12:45 02/04/18 09:12 Intake and Output: 02/04/18 02/04/18 06:59 18:59 Intake Total 200 Balance 200 - Medications Medications: Current Medications Levetiracetam 500 mg/ Sodium (Chloride) 105 mls @ 210 mls/hr IVPB Q12 [facility] Last Admin: 02/04/18 10:40 Dose: 210 mls/hr Piperacillin Sod/Tazobactam (Sod 4.5 gm/ Sodium Chloride) 100 mls @ 100 mls/hr IVPB Q8 [facility] PRN Reason: Protocol Last Admin: 02/04/18 10:43 Dose: 100 mls/hr Metronidazole (Flagyl 500mg/100ml Ns) 100 mls @ 100 mls/hr IVPB Q8 [facility] PRN Reason: Protocol Last Admin: 02/04/18 10:38 Dose: 100 mls/hr Pantoprazole Sodium 40 mg/ (Sodium Chloride) 100 mls @ 20 mls/hr IVPB Q5H [facility] PRN Reason: 8 MG/HR Last Admin: 02/04/18 06:51 Dose: 20 mls/hr Folic Acid 1 mg/ Sodium (Chloride) 100.2 mls @ 60 mls/hr IVPB DAILY [facility] Last Admin: 02/04/18 10:40 Dose: 60 mls/hr Fluconazole (Diflucan Iv 100 Mg/50 Ml Ns) 50 mls @ 50 mls/hr IVPB DAILY [facility] PRN Reason: Protocol Last Admin: 02/04/18 10:39 Dose: 50 mls/hr Sodium Chloride (Sodium Chloride 0.9%) 1,000 mls @ 120 mls/hr IV .[id number] [facility] Stop: 02/04/18 15:16 Last Admin: 02/04/18 10:42 Dose: 120 mls/hr Levetiracetam (Keppra) 500 mg PO Q12H [facility] Lidocaine (Lidoderm) 1 ea TD DAILY [facility] Last Admin: 02/04/18 10:41 Dose: 1 ea Lorazepam (Ativan) 1 mg IVP STAT PRN PRN Reason: Symptoms of alcohol withdrawl Ondansetron HCl (Zofran Inj) 4 mg IVP Q6 PRN PRN Reason: Nausea/Vomiting Last Admin: 01/30/18 16:34 Dose: 4 mg Thiamine HCl (Vitamin B1 Inj) 100 mg IM DAILY [facility] Last Admin: 02/04/18 10:43 Dose: 100 mg Tobramycin Sulfate (Tobrex 0.3% Ophth Soln) 2 drop OU Q6 [facility] Last Admin: 02/04/18 10:42 Dose: 2 drop - Labs Labs: - Additional Findings Additional findings: - Constitutional Appears: Chronically Ill, NAD - Eye Exam Eye Exam: PERRL - ENT Exam ENT Exam: Normal Oropharynx - Neck Exam Neck exam: Positive for: Full Rom - Respiratory Exam Respiratory Exam: NORMAL BREATHING PATTERN Additional comments: no wheezing breath sounds heard b/l - Cardiovascular Exam Cardiovascular Exam: RRR, +S1, +S2 - GI/Abdominal Exam GI & Abdominal Exam: Soft Additional comments: No distention, no tenderness hypoactive bowel sounds - Extremities Exam Additional comments: no edema b/l LE - Neurological Exam Additional comments: AAO x 3 Laboratory Results - last 72 hr 02/01/18 02/01/18 02/02/18 08:42 20:50 04:35 WBC 3.3 L 3.5 L RBC 2.72 L 2.71 L Hgb 7.9 L 7.9 L Hct 23.7 L 23.5 L MCV 87.0 86.8 MCH 29.0 29.1 MCHC 33.3 33.5 RDW 20.6 H 20.9 H Plt Count 49 L 49 L MPV 7.4 Neut % (Auto) 64.6 Lymph % (Auto) 18.6 L [place] % (Auto) 10.2 H Eos % (Auto) 6.3 H Baso % (Auto) 0.3 Neut # (Auto) 2.3 Lymph # (Auto) 0.6 L [place] # (Auto) 0.4 Eos # (Auto) 0.2 Baso # (Auto) 0.0 PT INR Sodium Potassium Chloride Carbon Dioxide Anion Gap BUN Creatinine Est GFR ( Amer) Est GFR (Non-Af Amer) Random Glucose Calcium Total Bilirubin AST ALT Alkaline Phosphatase Total Protein Albumin Globulin Albumin/Globulin Ratio Fluid Source Fluid Appearance Fluid WBC Fluid RBC Fluid Tot Cell Count Fluid Neutrophils Fluid Lymphocytes Fld Monocyte/Macrophag Fluid Glucose Fluid Total Protein Fluid LDH Fluid Amylase Fluid Triglycerides Fluid Comment Crossmatch See Detail 02/02/18 02/02/18 02/02/18 06:57 06:57 08:22 WBC 3.2 L 3.9 L RBC 2.71 L 2.89 L Hgb 7.9 L 8.5 L Hct 23.6 L 24.7 L MCV 87.0 85.6 MCH 29.0 29.4 MCHC 33.4 34.4 RDW 20.5 H 21.0 H Plt Count 53 L 57 L MPV Neut % (Auto) Lymph % (Auto) [place] % (Auto) Eos % (Auto) Baso % (Auto) Neut # (Auto) Lymph # (Auto) [place] # (Auto) Eos # (Auto) Baso # (Auto) PT INR Sodium 137 Potassium 3.1 L Chloride 114 H Carbon Dioxide 18 L Anion Gap 8 L BUN 22 H Creatinine 0.6 L Est GFR ( Amer) > 60 Est GFR (Non-Af Amer) > 60 Random Glucose 70 L Calcium 6.9 L Total Bilirubin AST ALT Alkaline Phosphatase Total Protein Albumin Globulin Albumin/Globulin Ratio Fluid Source Fluid Appearance Fluid WBC Fluid RBC Fluid Tot Cell Count Fluid Neutrophils Fluid Lymphocytes Fld Monocyte/Macrophag Fluid Glucose Fluid Total Protein Fluid LDH Fluid Amylase Fluid Triglycerides Fluid Comment Crossmatch 02/02/18 02/03/18 02/03/18 12:50 09:24 10:20 WBC 5.1 2.9 L RBC 2.97 L 2.76 L Hgb 8.7 L 8.1 L Hct 25.9 L 24.0 L MCV 87.1 87.0 MCH 29.4 29.4 MCHC 33.7 33.8 RDW 21.3 H 21.3 H Plt Count 60 L 60 L MPV Neut % (Auto) Lymph % (Auto) [place] % (Auto) Eos % (Auto) Baso % (Auto) Neut # (Auto) Lymph # (Auto) [place] # (Auto) Eos # (Auto) Baso # (Auto) PT INR Sodium 134 Potassium 3.7 Chloride 110 H Carbon Dioxide 21 L Anion Gap 7 L BUN 15 Creatinine 0.7 L Est GFR ( Amer) > 60 Est GFR (Non-Af Amer) > 60 Random Glucose 112 H Calcium 6.9 L Total Bilirubin AST ALT Alkaline Phosphatase Total Protein Albumin Globulin Albumin/Globulin Ratio Fluid Source Fluid Appearance Fluid WBC Fluid RBC Fluid Tot Cell Count Fluid Neutrophils Fluid Lymphocytes Fld Monocyte/Macrophag Fluid Glucose Fluid Total Protein Fluid LDH Fluid Amylase Fluid Triglycerides Fluid Comment Crossmatch 02/04/18 02/04/18 02/04/18 04:20 04:20 10:54 WBC 3.8 L RBC 2.67 L Hgb 7.8 L Hct 23.3 L MCV 87.3 MCH 29.3 MCHC 33.6 RDW 21.4 H Plt Count 58 L MPV 7.4 Neut % (Auto) 57.7 Lymph % (Auto) 20.2 [place] % (Auto) 15.7 H Eos % (Auto) 5.9 H Baso % (Auto) 0.5 Neut # (Auto) 2.2 Lymph # (Auto) 0.8 L [place] # (Auto) 0.6 Eos # (Auto) 0.2 Baso # (Auto) 0.0 PT 21.2 H INR 1.9 Sodium 133 Potassium 3.6 Chloride 110 H Carbon Dioxide 20 L Anion Gap 7 L BUN 11 Creatinine 0.6 L Est GFR ( Amer) > 60 Est GFR (Non-Af Amer) > 60 Random Glucose 89 Calcium 6.9 L Total Bilirubin 2.3 H AST 68 H ALT 39 Alkaline Phosphatase 131 H D Total Protein 4.9 L Albumin 1.8 L Globulin 3.0 Albumin/Globulin Ratio 0.6 L Fluid Source Fluid Appearance Fluid WBC Fluid RBC Fluid Tot Cell Count Fluid Neutrophils Fluid Lymphocytes Fld Monocyte/Macrophag Fluid Glucose Fluid Total Protein Fluid LDH Fluid Amylase Fluid Triglycerides Fluid Comment Crossmatch 02/04/18 02/04/18 02/04/18 12:45 12:45 12:45 WBC RBC Hgb Hct MCV MCH MCHC RDW Plt Count MPV Neut % (Auto) Lymph % (Auto) [place] % (Auto) Eos % (Auto) Baso % (Auto) Neut # (Auto) Lymph # (Auto) [place] # (Auto) Eos # (Auto) Baso # (Auto) PT INR Sodium Potassium Chloride Carbon Dioxide Anion Gap BUN Creatinine Est GFR ( Amer) Est GFR (Non-Af Amer) Random Glucose Calcium Total Bilirubin AST ALT Alkaline Phosphatase Total Protein Albumin Globulin Albumin/Globulin Ratio Fluid Source Peritoneal/ascites Fluid Appearance Sl cloudy Fluid WBC 56.0 Fluid RBC 63.0 H Fluid Tot Cell Count 100 H Fluid Neutrophils 41.0 H Fluid Lymphocytes 23.0 H Fld Monocyte/Macrophag 36 H Fluid Glucose 112 Fluid Total Protein < 2.0 Fluid LDH 152 Fluid Amylase 32 Fluid Triglycerides 28 Fluid Comment Crossmatch Microbiology 01/31/18 14:48 Blood-Venous Blood Culture - Preliminary NO GROWTH AFTER 4 DAYS 01/31/18 14:38 Blood-Venous Blood Culture - Preliminary NO GROWTH AFTER 4 DAYS 01/30/18 14:00 Blood-Venous Blood Culture - Final NO GROWTH AFTER 5 DAYS 01/30/18 14:00 Blood-Venous Gram Stain - Final TEST NOT PERFORMED 01/30/18 18:19 Nose MRSA Culture (Admit) - Final MRSA NOT DETECTED 01/31/18 06:45 Urine Urine Culture - Final No Growth (<1,000 CFU/ML) Assessment and Plan (1) Anemia Status: Acute (2) GI bleed Status: Acute (3) Esophageal and gastric varices Status: Acute (4) Abdominal pain Status: Resolved (5) Alcohol withdrawal seizure Status: Acute (6) Alcoholism Status: Acute (7) Hematemesis Status: Acute - Assessment and Plan (Free Text) Assessment: A/P- 52 year old male with h/o ETOH abuse/ and seizures, cirrhosis s/p TIPs, thrombocytopenia admitted with hematemesis and hematochezia found to be intoxicated again with EOH levels that are high and anemic . s/p second endoscopy today- report noted GI following pt. afebrile minimal leukopenia chronic thrombocytopenia blood cx- neg x 3 CT abd report- colitis,typhlitis , duodenitis. UA- neg Plan- Continue with empiric IV abx coverage for colitis /typhlitis with IV zosyn and flagyl. day #7 advise to continue with empiric abx for 10 days. continue with IV fluconazole as well day #5 for antifungal empiric coverage. consider surgical evaluation if no improvement on repeat CT scans.
[2018-02-04 14:47] LABS: BODY FLUID MONO/MACROPHAGE 36 % (0-0); BODY FLUID TOTAL COUNT 100 (0-0)
[2018-02-05] MEDS: Piperacillin/Tazobact 4.5 GM in Sodium Chloride 0.9% 100 ML IVPB SCH ×3 (00:04→16:09)
[2018-02-05] MEDS: metroNIDAZOLE 500mg/100ml NS 100 ML IVPB SCH ×3 (01:07→16:08)
[2018-02-05] MEDS: Pantoprazole 40 MG in Sodium Chloride 0.9% 100 ML IVPB SCH ×5 (02:44→22:39)
[2018-02-05] MEDS: Tobramycin 0.3% OPHT SOLN OU SCH ×4 (04:21→21:25)
[2018-02-05 07:20] LABS: BASO % 0.6 % (0.0-2.0); EOS # 0.2 K/uL (0.0-0.7); EOS % 5.8 % (0.0-4.0); HEMOGLOBIN 7.8 g/dL (12.0-18.0); LYMPH # 0.5 K/uL (1.0-4.3); LYMPH % 17.9 % (20.0-40.0); MEAN CELL VOLUME 86.6 fl (80.0-94.0); MEAN CORPUSCULAR HEMOGLOBIN 29.3 pg (27.0-31.0); MEAN CORPUSCULAR HGB CONC 33.8 g/dL (33.0-37.0); MEAN PLATELET VOLUME 7.2 fl (7.2-11.7); MONO # 0.4 K/uL (0.0-0.8); MONO % 13.7 % (0.0-10.0); NEUT # 1.9 K/uL (1.8-7.0); NRBC % 0.1 % (0.0-0.0); RBC 2.66 Mil/uL (4.40-5.90); RED CELL DISTRIBUTION WIDTH 21.5 % (11.5-14.5)
[2018-02-05 08:10] LABS: ALB/GLOB RATIO 0.6 (1.0-2.1); ALBUMIN 1.9 g/dL (3.5-5.0); ALT/SGPT 42 U/L (21-72); AST/SGOT 68 U/L (17-59); BLOOD UREA NITROGEN 14 mg/dl (9-20); CALCIUM 7.3 mg/dL (8.4-10.2); GFR NON-AFRICAN AMERICAN > 60
[2018-02-05] MEDS: levETIRAcetam 500 MG in Sodium Chloride 0.9% 100 ML IVPB SCH ×2 (08:22→21:16)
[2018-02-05] MEDS: Fluconazole IV 100mg/50 ml NS 50 ML IVPB SCH (08:27)
[2018-02-05] MEDS: Thiamine 100 mg/ml Inj IM SCH (08:29)
[2018-02-05] MEDS: Lidocaine 5% Patch TD SCH (08:30)
--- NOTE | 2018-02-05 08:43 | CP.PCM.PN ---
Subjective - Date & Time of Evaluation Date of Evaluation: 02/05/18 Time of Evaluation: 09:25 - Subjective Subjective: S/p EGD and IR guided paracentesis yesterday No acute overnight events. Pt seen and examined in Med/surg today. Pt endorsing improving R shoulder pain and swollen scrotum. Good PO intake. Objective - Vital Signs/Intake and Output Vital Signs (last 24 hours): Temp Pulse Resp BP Pulse Ox 98.0 F 88 19 119/68 96 02/05/18 07:34 02/05/18 07:34 02/05/18 07:34 02/05/18 07:34 02/05/18 07:34 - Medications Medications: Current Medications Acetaminophen (Tylenol 325mg Tab) 650 mg PO Q6 PRN PRN Reason: Pain, moderate (4-7) Last Admin: 02/05/18 05:44 Dose: 650 mg Levetiracetam 500 mg/ Sodium (Chloride) 105 mls @ 210 mls/hr IVPB Q12 [facility] Last Admin: 02/05/18 08:22 Dose: 210 mls/hr Piperacillin Sod/Tazobactam (Sod 4.5 gm/ Sodium Chloride) 100 mls @ 100 mls/hr IVPB Q8 [facility] PRN Reason: Protocol Last Admin: 02/05/18 08:28 Dose: 100 mls/hr Metronidazole (Flagyl 500mg/100ml Ns) 100 mls @ 100 mls/hr IVPB Q8 [facility] PRN Reason: Protocol Last Admin: 02/05/18 08:27 Dose: 100 mls/hr Pantoprazole Sodium 40 mg/ (Sodium Chloride) 100 mls @ 20 mls/hr IVPB Q5H [facility] PRN Reason: 8 MG/HR Last Admin: 02/05/18 08:22 Dose: 20 mls/hr Folic Acid 1 mg/ Sodium (Chloride) 100.2 mls @ 60 mls/hr IVPB DAILY [facility] Last Admin: 02/05/18 08:31 Dose: 60 mls/hr Fluconazole (Diflucan Iv 100 Mg/50 Ml Ns) 50 mls @ 50 mls/hr IVPB DAILY [facility] PRN Reason: Protocol Last Admin: 02/05/18 08:27 Dose: 50 mls/hr Levetiracetam (Keppra) 500 mg PO Q12H [facility] Lidocaine (Lidoderm) 1 ea TD DAILY [facility] Last Admin: 02/05/18 08:30 Dose: 1 ea Lorazepam (Ativan) 1 mg IVP STAT PRN PRN Reason: Symptoms of alcohol withdrawl Ondansetron HCl (Zofran Inj) 4 mg IVP Q6 PRN PRN Reason: Nausea/Vomiting Last Admin: 01/30/18 16:34 Dose: 4 mg Thiamine HCl (Vitamin B1 Inj) 100 mg IM DAILY [facility] Last Admin: 02/05/18 08:29 Dose: 100 mg Tobramycin Sulfate (Tobrex 0.3% Ophth Soln) 2 drop OU Q6 [facility] Last Admin: 02/05/18 04:21 Dose: 2 drop - Labs Labs: 02/05/18 05:30 02/05/18 05:30 PT 21.2 Seconds (9.8-13.1) H 02/04/18 10:54 INR 1.9 02/04/18 10:54 APTT 28.8 Seconds (25.6-37.1) 01/31/18 21:03 - Constitutional Appears: No Acute Distress, Cachectic - Head Exam Head Exam: ATRAUMATIC - ENT Exam ENT Exam: Mucous Membranes Moist - Respiratory Exam Respiratory Exam: Clear to Ausculation Bilateral. absent: Wheezes - Cardiovascular Exam Cardiovascular Exam: REGULAR RHYTHM, +S1, +S2 - GI/Abdominal Exam GI & Abdominal Exam: Distended, Firm, Soft, Normal Bowel Sounds. absent: Guarding, Tenderness Additional comments: Paracentesis site dressing on Firm abdomen, unable to appreciate fluid wave - Exam Exam: Circumcision, Scrotal Swelling (penile and scrotal swelling ) - Extremities Exam Extremities Exam: Pedal Edema (2+pitting edema up to the knees b/l ). absent: Calf Tenderness - Neurological Exam Neurological Exam: Alert, Awake - Skin Skin Exam: Pallor Assessment and Plan - Assessment and Plan (Free Text) Assessment: Assessment/Plan 52 YO with PMHx of ETOH abuse, unwitnessed seizures, cirrhosis (s/p TIPS), hepatic encephalograph is admitted for acute GI bleeds requiring multiple blood transfusions. Acute GI bleeding -h/h stable -s/p 8 units of PRBC transfusions and 2 FFPs -GI consulted, Dr. Swartz, appreciate recs; emergent EGD 01/31/2018: ulcerative duodentitis, grade II esophageal varices at lower 1/3, alcoholic gastritis, duodenal ulcers -EGD 02/04: non-bleeding gastric ulcer, non-bleeding doudenal ulcer. -Colonoscopy (06/2017) Poor prep, internal/external hemorrhoids -cont protonix 20mLs/hr IVPB Q5H (8g/hr) Zofran 4 mg IV Q6 PRN -serial CBC Ascites, hypoalbuminia -Abdomen firm, distended -likely 2/2 to cirrhosis -Abdomen u/s 02/03: intra-abdominal and pelvic ascites -s/p 12.5gm of albumin, albumin today 1.9 -GI consulted; recs albumin and IR guided drainage -Per GI, will give 1x dose of 12.5g of albumin, and will replace albumin as per amount drained with IR -s/p paracentesis by IR 70cc of yellow fluid drained -fluid studies sig for liver cirrhosis and no SBP. Culture pending b/l lower ext and scrotal edema -likely 2/2 to low albumin, cirrhosis -bp stable -1x dose of 20mg IV lasix -cont to monitor, repeat if needed Grade II esophageal Varices -EGD 01/31/18: grade II esophageal varices at lower 1/3 -s/p TIPS procedure in the past -GI on board; per GI pt does not need a beta shae at this time Typhilitis/colitis/duodenitis -present on abd CT 01/30/2018 -ID on consult c/w Zosyn 4.5g IV (D7), Metronidazole 500mg (D7) and fluconazole IV 100mg/50mL NS (D6) -c. diff toxin a/b and stool cx pending -as per ID will repeat CT in AM, total of empiric abx for 10 days -follow up CT Pancytopenia -chronic -ANC 1860 today -likely 2/2 to live failure vs bone marrow suppression 2/2 to etoh abuse/liver failure -platelets 50 s/p Vitamin K 5mg PO once 01/31/2018 -follow up labs in AM and trend Right shoulder pain -improving -s/p fall 01/23/2018 -Right shoulder x-ray negative for fracture -Lidoderm patch 1 TD QD PRN Right > left eye pain -improving -advised patient to remove eye contact lenses. Patient only removed right eye contact lens, refused to remove the left one. -2/2 prolonged eye contact lens use -c/w tobrex 2 drops Q6 OU Hx of Seizures -Keppra 500 IV Q12 Cirrhosis 2/2 ETOH abuse -Meld score: 19; Xmzws-Vfziecxn-Yyik Score: 11C -alcohol level 57 in ED -CIWA protocol Q1hrs -Ativan 1 mg PRN Hx of Staph bacteremia -stool cx pending -01/31: Bcx x 3 days no growth; Ucx final no growth Diet: -GI hepatic diet DVT prophylaxis -SCDs
[2018-02-05] MEDS ORDERED: Sodium Chloride 0.9% 100 ML ONE (12:06)
[2018-02-05] MEDS ORDERED: Iohexol 300 100 ML IJ ONE (12:06)
--- NOTE | 2018-02-05 17:25 | CT ---
Date of service: 02/05/2018 PROCEDURE: CT Abdomen and Pelvis with contrast HISTORY: colitis COMPARISON: 01/30/2018 TECHNIQUE: Contrast dose: 98 cc Omnipaque 300 Radiation dose: Total exam DLP = 1058.80 mGy-cm. This CT exam was performed using one or more of the following dose reduction techniques: Automated exposure control, adjustment of the mA and/or kV according to patient size, and/or use of iterative reconstruction technique. FINDINGS: LOWER THORAX: Small bilateral pleural effusion with bilateral lower lobe compressive atelectasis. LIVER: Markedly nodular hepatic contour consistent with cirrhosis. Relative atrophy of the right lobe of the liver. No mass. No biliary dilatation. TIPS shunt noted. The shunt appears patent. No evidence of portal venous or splenic vein thrombosis. GALLBLADDER AND BILE DUCTS: Cholelithiasis. Minimal mural thickening, nonspecific. PANCREAS: There is fluid/ edema about the pancreatic head and proximal body, nonspecific but which may reflect a pancreatitis. This represents interval change from the appearance on prior CT examination. No pancreatic mass. SPLEEN: Marked splenomegaly. The spleen measures 18.9 cm length. ADRENALS: Unremarkable. No mass. KIDNEYS AND URETERS: Unremarkable. No hydronephrosis. No solid mass. VASCULATURE: Unremarkable. No aortic aneurysm. BOWEL: There is mural thickening of the entire gastric wall. There is mural thickening of the entire duodenum. There is mural thickening of multiple loops of jejunum in the left abdomen. The findings are nonspecific and may reflect an infectious or inflammatory enteritis. Please note that the thickened duodenum is adjacent to the pancreas in the retroperitoneum and it is possible that the retroperitoneal fluid/edema noted above may be the result of an enteritis or may be the result of a pancreatitis. APPENDIX: Normal appendix. PERITONEUM: Ascites. LYMPH NODES: Unremarkable. No enlarged lymph nodes. BLADDER: Unremarkable. REPRODUCTIVE: Normal prostate BONES: No acute fracture. OTHER FINDINGS: None. IMPRESSION: Small bilateral pleural effusion with bilateral lower lobe compressive atelectasis. Ascites. Retroperitoneal fluid/ edema possibly reflecting an acute pancreatitis. Please correlate. Mural thickening of the stomach, duodenum and multiple loops of jejunum. Nonspecific enteritis. Previously identified colitis has resolved. Splenomegaly. Hepatic cirrhosis. Tips shunt patent.
[2018-02-06] MEDS: metroNIDAZOLE 500mg/100ml NS 100 ML IVPB SCH ×3 (00:21→16:39)
[2018-02-06] MEDS: Piperacillin/Tazobact 4.5 GM in Sodium Chloride 0.9% 100 ML IVPB SCH ×3 (01:44→16:44)
[2018-02-06] MEDS: Pantoprazole 40 MG in Sodium Chloride 0.9% 100 ML IVPB SCH ×4 (03:41→19:46)
[2018-02-06] MEDS: Tobramycin 0.3% OPHT SOLN OU SCH ×4 (04:54→22:14)
[2018-02-06 07:04] LABS: BASO % 0.9 % (0.0-2.0); EOS # 0.2 K/uL (0.0-0.7); EOS % 5.3 % (0.0-4.0); HEMOGLOBIN 7.8 g/dL (12.0-18.0); LYMPH # 0.7 K/uL (1.0-4.3); LYMPH % 21.3 % (20.0-40.0); MEAN CELL VOLUME 87.5 fl (80.0-94.0); MEAN CORPUSCULAR HGB CONC 33.1 g/dL (33.0-37.0); MEAN PLATELET VOLUME 7.5 fl (7.2-11.7); MONO # 0.5 K/uL (0.0-0.8); MONO % 14.9 % (0.0-10.0); NEUT # 1.8 K/uL (1.8-7.0); NEUT % 57.6 % (50.0-75.0); RBC 2.7 Mil/uL (4.40-5.90); RED CELL DISTRIBUTION WIDTH 21.2 % (11.5-14.5); WHITE BLOOD COUNT 3.2 K/uL (4.8-10.8)
[2018-02-06 07:21] LABS: BLOOD UREA NITROGEN 14 mg/dl (9-20); CALCIUM 7.4 mg/dL (8.4-10.2); GFR NON-AFRICAN AMERICAN > 60
[2018-02-06 07:47] LABS: FERRITIN 33.4 ng/Ml (17.9-464)
[2018-02-06] MEDS: Lidocaine 5% Patch TD SCH (08:18)
[2018-02-06] MEDS: Thiamine 100 mg/ml Inj IM SCH (08:21)
[2018-02-06 08:25] LABS: IRON 14 ug/dL (49-181)
[2018-02-06] MEDS: levETIRAcetam 500 MG in Sodium Chloride 0.9% 100 ML IVPB SCH ×2 (08:29→22:10)
[2018-02-06 08:42] LABS: % IRON SATURATION 5 % (20-55); TOTAL IRON BINDING CAPACITY 276 ug/dL (250-450)
[2018-02-06] MEDS: Fluconazole IV 100mg/50 ml NS 50 ML IVPB SCH (12:34)
--- NOTE | 2018-02-06 12:57 | CP.PCM.PN ---
Subjective - Date & Time of Evaluation Date of Evaluation: 02/06/18 Time of Evaluation: 08:45 - Subjective Subjective: Patient seen and examined bedside. Lying bed, comfortably. Still having edema of b/l lower extremities and of genitalia. Pain in genitalia with walking. Right shoulder pain persists. Has not done PT for shoulder, lidoderm patch does help a bit. His abdomen is still distended but denies any pain, had BM no blood. Tolerating diet. Patient has been out of bed to chair once this AM, encouraged to do so throughout the day. Encouraged compliance with physical therapy. Objective - Vital Signs/Intake and Output Vital Signs (last 24 hours): Temp Pulse Resp BP Pulse Ox 98.3 F 83 19 125/68 96 02/06/18 07:52 02/06/18 07:52 02/06/18 07:52 02/06/18 07:52 02/06/18 07:52 Intake and Output: 02/06/18 02/06/18 06:59 18:59 Intake Total 700 Output Total 900 Balance -200 - Medications Medications: Current Medications Acetaminophen (Tylenol 325mg Tab) 650 mg PO Q6 PRN PRN Reason: Pain, moderate (4-7) Last Admin: 02/06/18 08:16 Dose: 650 mg Levetiracetam 500 mg/ Sodium (Chloride) 105 mls @ 210 mls/hr IVPB Q12 [facility] Last Admin: 02/06/18 08:29 Dose: 210 mls/hr Piperacillin Sod/Tazobactam (Sod 4.5 gm/ Sodium Chloride) 100 mls @ 100 mls/hr IVPB Q8 [facility] PRN Reason: Protocol Last Admin: 02/06/18 12:35 Dose: 100 mls/hr Metronidazole (Flagyl 500mg/100ml Ns) 100 mls @ 100 mls/hr IVPB Q8 [facility] PRN Reason: Protocol Last Admin: 02/06/18 12:34 Dose: 100 mls/hr Pantoprazole Sodium 40 mg/ (Sodium Chloride) 100 mls @ 20 mls/hr IVPB Q5H [facility] PRN Reason: 8 MG/HR Last Admin: 02/06/18 09:49 Dose: 20 mls/hr Folic Acid 1 mg/ Sodium (Chloride) 100.2 mls @ 60 mls/hr IVPB DAILY [facility] Last Admin: 02/06/18 08:30 Dose: 60 mls/hr Fluconazole (Diflucan Iv 100 Mg/50 Ml Ns) 50 mls @ 50 mls/hr IVPB DAILY [facility] PRN Reason: Protocol Last Admin: 02/06/18 12:34 Dose: 50 mls/hr Levetiracetam (Keppra) 500 mg PO Q12H [facility] Lidocaine (Lidoderm) 1 ea TD DAILY [facility] Last Admin: 02/06/18 08:18 Dose: 1 ea Lorazepam (Ativan) 1 mg IVP STAT PRN PRN Reason: Symptoms of alcohol withdrawl Ondansetron HCl (Zofran Inj) 4 mg IVP Q6 PRN PRN Reason: Nausea/Vomiting Last Admin: 01/30/18 16:34 Dose: 4 mg Thiamine HCl (Vitamin B1 Inj) 100 mg IM DAILY [facility] Last Admin: 02/06/18 08:21 Dose: 100 mg Tobramycin Sulfate (Tobrex 0.3% Ophth Soln) 2 drop OU Q6 [facility] Last Admin: 02/06/18 09:53 Dose: 2 drop - Labs Labs: 02/06/18 05:30 02/06/18 05:30 PT 21.2 Seconds (9.8-13.1) H 02/04/18 10:54 INR 1.9 02/04/18 10:54 APTT 28.8 Seconds (25.6-37.1) 01/31/18 21:03 - Constitutional Appears: No Acute Distress - Head Exam Head Exam: ATRAUMATIC, NORMAL INSPECTION, NORMOCEPHALIC - Eye Exam Eye Exam: Normal appearance - Respiratory Exam Respiratory Exam: Clear to Ausculation Bilateral, NORMAL BREATHING PATTERN - Cardiovascular Exam Cardiovascular Exam: REGULAR RHYTHM, +S1, +S2 - GI/Abdominal Exam GI & Abdominal Exam: Distended, Normal Bowel Sounds. absent: Guarding, Rigid, Tenderness - Exam Exam: Scrotal Swelling (penile swelling) - Extremities Exam Extremities Exam: Pedal Edema (janelle stocking in place, minimal edema) - Neurological Exam Neurological Exam: Alert, Awake, Oriented x3 - Psychiatric Exam Psychiatric exam: Flat Affect - Skin Skin Exam: Pallor Assessment and Plan - Assessment and Plan (Free Text) Assessment: 52 YO with PMHx of ETOH abuse, unwitnessed seizures, cirrhosis (s/p TIPS), hepatic encephalograph is admitted for acute GI bleed requiring multiple blood transfusions and colitis, now with ascities/genital swelling. SBP ruled out. Colitis is resolved on CT. Small b/l pleural effusions likely 2.2 to hypoalbuminemia. Day 8 of Zosyn/Flagyl. Ascites, hypoalbuminemia -Abdomen remains firm, distended but nontender , likely 2/2 to cirrhosis -Abdomen u/s 02/03: intra-abdominal and pelvic ascites -s/p 12.5gm of albumin, albumin today 1.9 -GI consulted; recs albumin and IR guided drainage -s/ p 1 dose of 12.5mg of albumin, no additional doses recommended per GI. -s/p paracentesis by IR 70cc of yellow fluid drained -fluid studies sig for liver cirrhosis, SBP ruled out.Culture pending b/l lower ext and scrotal edema -likely 2/2 to low albumin, cirrhosis -bp stable -3x dose of 20mg IV lasix with minimal improvement. -nutrition consult for high protein diet ; currently on fluid restriction -cont to monitor, consider additional dose of lasix this afternoon as patient has been getting daily weights and has had 4kg weight gain in past 1-2 days. Acute GI bleeding -h/h stable -s/p 8 units of PRBC transfusions and 2 FFPs -GI consulted, Dr. Swartz, appreciate recs; emergent EGD 01/31/2018: ulcerative duodentitis, grade II esophageal varices at lower 1/3, alcoholic gastritis, duodenal ulcers -EGD 02/04: non-bleeding gastric ulcer, non-bleeding doudenal ulcer. -Colonoscopy (06/2017) Poor prep, internal/external hemorrhoids -cont protonix 20mLs/hr IVPB Q5H (8g/hr) Zofran 4 mg IV Q6 PRN -serial CBC Grade II esophageal Varices -EGD 01/31/18: grade II esophageal varices at lower 1/3 -s/p TIPS procedure in the past -GI on board; per GI pt does not need a beta shae at this time given hx of TIPS Typhilitis/colitis/duodenitis -present on abd CT 01/30/2018 ; resolved on repeat CT. -ID on consult c/w Zosyn 4.5g IV (D8), Metronidazole 500mg (D8) and fluconazole IV 100mg/50mL NS (D7) -c. diff toxin a/b and stool cx pending -total of empiric abx for 10 days Pancytopenia -chronic -ANC 1860 02/05 -likely 2/2 to live failure vs bone marrow suppression 2/2 to etoh abuse/liver failure -platelets 50 s/p Vitamin K 5mg PO once 01/31/2018 -WBC/HG/PLTS STABLE Right shoulder pain -improving -s/p fall 01/23/2018 -Right shoulder x-ray negative for fracture -Lidoderm patch 1 TD QD PRN -compliance with PT encouraged Right > left eye pain -improving ; no erythema of eye seen -advised patient to remove eye contact lenses. Patient only removed right eye contact lens, refused to remove the left one. -2/2 prolonged eye contact lens use -c/w tobrex 2 drops Q6 OU Hx of Seizures -Keppra 500 IV Q12 Cirrhosis 2/2 ETOH abuse -Meld score: 19; Tpepm-Jvembcpd-Ngke Score: 11C -alcohol level 57 in ED -CIWA protocol Q1hrs -Ativan 1 mg PRN Hx of Staph bacteremia -stool cx pending -01/31: Bcx x 3 days no growth; Ucx final no growth Diet: -GI hepatic diet DVT prophylaxis -SCDs
--- NOTE | 2018-02-06 20:27 | CP.PCM.PN ---
Subjective - Date & Time of Evaluation Date of Evaluation: 02/06/18 Time of Evaluation: 14:00 - Subjective Subjective: Patient ambulating. No observed GI bleeding Objective - Vital Signs/Intake and Output Vital Signs (last 24 hours): Temp Pulse Resp BP Pulse Ox 98.3 F 84 19 119/69 97 02/06/18 15:45 02/06/18 15:45 02/06/18 15:45 02/06/18 15:45 02/06/18 15:45 - Medications Medications: Current Medications Acetaminophen (Tylenol 325mg Tab) 650 mg PO Q6 PRN PRN Reason: Pain, moderate (4-7) Last Admin: 02/06/18 16:49 Dose: 650 mg Levetiracetam 500 mg/ Sodium (Chloride) 105 mls @ 210 mls/hr IVPB Q12 JANNIE Last Admin: 02/06/18 08:29 Dose: 210 mls/hr Piperacillin Sod/Tazobactam (Sod 4.5 gm/ Sodium Chloride) 100 mls @ 100 mls/hr IVPB Q8 JANNIE PRN Reason: Protocol Last Admin: 02/06/18 16:44 Dose: 100 mls/hr Metronidazole (Flagyl 500mg/100ml Ns) 100 mls @ 100 mls/hr IVPB Q8 JANNIE PRN Reason: Protocol Last Admin: 02/06/18 16:39 Dose: 100 mls/hr Pantoprazole Sodium 40 mg/ (Sodium Chloride) 100 mls @ 20 mls/hr IVPB Q5H JANNIE PRN Reason: 8 MG/HR Last Admin: 02/06/18 19:46 Dose: 20 mls/hr Folic Acid 1 mg/ Sodium (Chloride) 100.2 mls @ 60 mls/hr IVPB DAILY JANNIE Last Admin: 02/06/18 08:30 Dose: 60 mls/hr Fluconazole (Diflucan Iv 100 Mg/50 Ml Ns) 50 mls @ 50 mls/hr IVPB DAILY JANNIE PRN Reason: Protocol Last Admin: 02/06/18 12:34 Dose: 50 mls/hr Levetiracetam (Keppra) 500 mg PO Q12H JANNIE Lidocaine (Lidoderm) 1 ea TD DAILY JANNIE Last Admin: 02/06/18 08:18 Dose: 1 ea Lorazepam (Ativan) 1 mg IVP STAT PRN PRN Reason: Symptoms of alcohol withdrawl Nicotine (Nicoderm Cq) 1 patch TD DAILY [facility] Last Admin: 02/06/18 19:42 Dose: 1 patch Ondansetron HCl (Zofran Inj) 4 mg IVP Q6 PRN PRN Reason: Nausea/Vomiting Last Admin: 01/30/18 16:34 Dose: 4 mg Thiamine HCl (Vitamin B1 Inj) 100 mg IM DAILY [facility] Last Admin: 02/06/18 08:21 Dose: 100 mg Tobramycin Sulfate (Tobrex 0.3% Oph Soln) 2 drop OU Q6 [facility] Last Admin: 02/06/18 16:46 Dose: 2 drop - Labs Labs: 02/06/18 05:30 02/06/18 05:30 PT 21.2 Seconds (9.8-13.1) H 02/04/18 10:54 INR 1.9 02/04/18 10:54 APTT 28.8 Seconds (25.6-37.1) 01/31/18 21:03 - Head Exam Head Exam: ATRAUMATIC - Eye Exam Eye Exam: Normal appearance - ENT Exam ENT Exam: Normal Exam - Respiratory Exam Respiratory Exam: Clear to Ausculation Bilateral - Cardiovascular Exam Cardiovascular Exam: RRR, +S1, +S2 - GI/Abdominal Exam GI & Abdominal Exam: Distended, Soft. absent: Tenderness Assessment and Plan (1) GI bleed Assessment & Plan: Hgb has drifted downward though no observed bleeding. Iron level is low. Recommend iron IV infusion. Status: Acute
[2018-02-07] MEDS: Pantoprazole 40 MG in Sodium Chloride 0.9% 100 ML IVPB SCH ×4 (01:18→09:46)
[2018-02-07] MEDS: metroNIDAZOLE 500mg/100ml NS 100 ML IVPB SCH ×2 (01:26→09:47)
[2018-02-07] MEDS: Piperacillin/Tazobact 4.5 GM in Sodium Chloride 0.9% 100 ML IVPB SCH ×2 (02:34→09:44)
[2018-02-07] MEDS: Tobramycin 0.3% OPHT SOLN OU SCH ×5 (04:57→21:07)
--- NOTE | 2018-02-07 08:24 | CP.PCM.PN ---
Subjective - Date & Time of Evaluation Date of Evaluation: 02/07/18 Time of Evaluation: 08:30 - Subjective Subjective: No acute overnight events. Pt states that is feel heavy and that he had sig weight gain. Good PO intake, denies abdominal pain, n/v remains without fever. Objective - Vital Signs/Intake and Output Vital Signs (last 24 hours): Temp Pulse Resp BP Pulse Ox 98.1 F 86 19 119/65 97 02/07/18 00:00 02/07/18 00:00 02/07/18 00:00 02/07/18 00:00 02/07/18 00:00 Intake and Output: 02/07/18 02/07/18 06:59 18:59 Intake Total 1100 Output Total 600 Balance 500 - Medications Medications: Current Medications Acetaminophen (Tylenol 325mg Tab) 650 mg PO Q6 PRN PRN Reason: Pain, moderate (4-7) Last Admin: 02/07/18 05:59 Dose: 650 mg Ferrous Sulfate (Feosol) 325 mg PO DAILY JANNIE Furosemide (Lasix) 20 mg IVP ONCE ONE Stop: 02/07/18 08:22 Levetiracetam 500 mg/ Sodium (Chloride) 105 mls @ 210 mls/hr IVPB Q12 JANNIE Last Admin: 02/06/18 22:10 Dose: 210 mls/hr Piperacillin Sod/Tazobactam (Sod 4.5 gm/ Sodium Chloride) 100 mls @ 100 mls/hr IVPB Q8 JANNIE PRN Reason: Protocol Last Admin: 02/07/18 02:34 Dose: 100 mls/hr Metronidazole (Flagyl 500mg/100ml Ns) 100 mls @ 100 mls/hr IVPB Q8 JANNIE PRN Reason: Protocol Last Admin: 02/07/18 01:26 Dose: 100 mls/hr Pantoprazole Sodium 40 mg/ (Sodium Chloride) 100 mls @ 20 mls/hr IVPB Q5H JANNIE PRN Reason: 8 MG/HR Last Admin: 02/07/18 06:29 Dose: 20 mls/hr Folic Acid 1 mg/ Sodium (Chloride) 100.2 mls @ 60 mls/hr IVPB DAILY COUNTS INCLUDE 234 BEDS AT THE [facility] Last Admin: 02/06/18 08:30 Dose: 60 mls/hr FLUCONAZOLE IN DEXTROSE (Fluconazole-Dext 200 Mg/100 Ml) 100 mg in 50 mls @ 50 mls/hr IVPB DAILY JANNIE PRN Reason: Protocol Levetiracetam (Keppra) 500 mg PO Q12H COUNTS INCLUDE 234 BEDS AT THE [facility] Lidocaine (Lidoderm) 1 ea TD DAILY JANNIE Last Admin: 02/06/18 08:18 Dose: 1 ea Lorazepam (Ativan) 1 mg IVP STAT PRN PRN Reason: Symptoms of alcohol withdrawl Nicotine (Nicoderm Cq) 1 patch TD DAILY JANNIE Last Admin: 02/06/18 19:42 Dose: 1 patch Ondansetron HCl (Zofran Inj) 4 mg IVP Q6 PRN PRN Reason: Nausea/Vomiting Last Admin: 01/30/18 16:34 Dose: 4 mg Thiamine HCl (Vitamin B1 Inj) 100 mg IM DAILY COUNTS INCLUDE 234 BEDS AT THE [facility] Last Admin: 02/06/18 08:21 Dose: 100 mg Tobramycin Sulfate (Tobrex 0.3% Ophth Soln) 2 drop OU Q6 JANNIE Last Admin: 02/07/18 04:57 Dose: 2 drop Zolpidem Tartrate (Ambien) 5 mg PO HS PRN PRN Reason: Insomnia Last Admin: 02/06/18 23:11 Dose: 5 mg - Labs Labs: 02/06/18 05:30 02/06/18 05:30 PT 21.2 Seconds (9.8-13.1) H 02/04/18 10:54 INR 1.9 02/04/18 10:54 APTT 28.8 Seconds (25.6-37.1) 01/31/18 21:03 - Constitutional Appears: No Acute Distress - Head Exam Head Exam: ATRAUMATIC - Eye Exam Eye Exam: EOMI - ENT Exam ENT Exam: Mucous Membranes Moist - Respiratory Exam Respiratory Exam: NORMAL BREATHING PATTERN. absent: Wheezes Additional comments: crackles in the lower lobes - Cardiovascular Exam Cardiovascular Exam: REGULAR RHYTHM, +S1, +S2 - GI/Abdominal Exam GI & Abdominal Exam: Distended, Firm, Normal Bowel Sounds. absent: Tenderness Additional comments: protuberant abdomen - Exam Exam: Scrotal Swelling (sig scortal and penile edema ) - Extremities Exam Extremities Exam: Pedal Edema (b/l low ext edema up to the mid-thigh) Additional comments: No edema noted in the upper ext b/l chest or face - Neurological Exam Neurological Exam: Alert, Awake - Psychiatric Exam Psychiatric exam: Normal Mood Assessment and Plan - Assessment and Plan (Free Text) Assessment: Assessment/Plan: 52 YO with PMHx of ETOH abuse, unwitnessed seizures, cirrhosis (s/p TIPS), hepatic encephalograph is admitted for acute GI bleed requiring multiple blood transfusions and colitis, now with generalized edema. Edema, Ascites -likely 2/2 to cirrhosis, hypoalbuminemia -Abdomen u/s 02/03: intra-abdominal and pelvic ascites -s/p paracentesis by IR 70cc of yellow fluid drained 02/04 -fluid studies sig for liver cirrhosis, SBP ruled out. Cx no growth x 2 days -s/p 12.5gm of albumin 02/04 -s/p 2 dose of lasix 02/05 -GI consulted; IV iron and no endoscopy now -all IVPB meds adjusted, d/c and converted to PO as needed -daily weights and strict I/O -2x 20mg IVP lasix today Acute GI bleeding -h/h stable -s/p 8 units of PRBC transfusions and 2 FFPs -GI consulted, Dr. Swartz, appreciate recs; emergent EGD 01/31/2018: ulcerative duodentitis, grade II esophageal varices at lower 1/3, alcoholic gastritis, duodenal ulcers -EGD 02/04: non-bleeding gastric ulcer, non-bleeding doudenal ulcer. -Colonoscopy (06/2017) Poor prep, internal/external hemorrhoids -cont protonix IVP, Zofran 4 mg IV Q6 PRN -serial CBC Grade II esophageal Varices -stable -EGD 01/31/18: grade II esophageal varices at lower 1/3 -s/p TIPS procedure in the past -GI on board; per GI pt does not need a beta shae at this time given hx of TIPS Typhilitis/colitis/duodenitis -Resolved, as noted in repeat CT 02/05 -present on abd CT 01/30/2018 ; resolved on repeat CT. -ID on consult c/w Zosyn 4.5g IV (D9), Metronidazole 500mg (D9) and fluconazole IV 100mg/50mL NS (D8) -c. diff toxin a/b and stool cx pending -Per ID, all abx were discontinued Pancytopenia -chronic, stable -ANC 1843 02/06 -likely 2/2 to live failure vs bone marrow suppression 2/2 to etoh abuse/liver failure -platelets 50 s/p Vitamin K 5mg PO once 01/31/2018 Right shoulder pain -improving -s/p fall 01/23/2018 -Right shoulder x-ray negative for fracture -Lidoderm patch 1 TD QD PRN -compliance with PT encouraged Hx of Seizures -Keppra 500 IV PO Cirrhosis 2/2 ETOH abuse -Meld score: 19; [id number]-Pscy Score: 11C -alcohol level 57 in ED -CIWA protocol Q1hrs -Ativan 1 mg PRN DVT prophylaxis -SCDs
[2018-02-07] MEDS ORDERED: [UNRECOGNIZED DRUG - OTHER] IVPB SCH (09:00)
[2018-02-07] MEDS ORDERED: PIGGYBACK IVPB SCH (09:00)
[2018-02-07] MEDS: Lidocaine 5% Patch TD SCH (09:37)
[2018-02-07] MEDS: Thiamine 100 mg/ml Inj IM SCH (09:40)
[2018-02-07] MEDS: levETIRAcetam 500 MG in Sodium Chloride 0.9% 100 ML IVPB SCH (09:45)
--- NOTE | 2018-02-07 12:05 | CP.PCM.PN ---
Subjective - Date & Time of Evaluation Date of Evaluation: 02/07/18 Time of Evaluation: 06:45 - Subjective Subjective: GI progress note for Dr. Swartz Patient seen and examined this AM. Patient complaining of swelling in scrotum and leg edema. Denies any pain, nausea, vomiting, and is tolerating his diet. Patient had a soft, normal color bowel movement this AM with no sign of blood. Objective - Vital Signs/Intake and Output Vital Signs (last 24 hours): Temp Pulse Resp BP Pulse Ox 98.1 F 75 19 112/72 96 02/07/18 08:26 02/07/18 08:26 02/07/18 08:26 02/07/18 08:26 02/07/18 08:26 Intake and Output: 02/07/18 02/07/18 06:59 18:59 Intake Total 1100 Output Total 600 Balance 500 - Medications Medications: Current Medications Acetaminophen (Tylenol 325mg Tab) 650 mg PO Q6 PRN PRN Reason: Pain, moderate (4-7) Last Admin: 02/07/18 05:59 Dose: 650 mg Ferrous Sulfate (Feosol) 325 mg PO DAILY JANNIE Folic Acid (Folic Acid) 1 mg PO DAILY JANNIE Piperacillin Sod/Tazobactam (Sod 4.5 gm/ Sodium Chloride) 100 mls @ 100 mls/hr IVPB Q8 JANNIE PRN Reason: Protocol Last Admin: 02/07/18 09:44 Dose: 100 mls/hr Metronidazole (Flagyl 500mg/100ml Ns) 100 mls @ 100 mls/hr IVPB Q8 JANNIE PRN Reason: Protocol Last Admin: 02/07/18 09:47 Dose: 100 mls/hr FLUCONAZOLE IN DEXTROSE (Fluconazole-Dext 200 Mg/100 Ml) 100 mg in 50 mls @ 50 mls/hr IVPB DAILY JANNIE PRN Reason: Protocol Last Admin: 02/07/18 09:47 Dose: 50 mls/hr Levetiracetam (Keppra) 500 mg PO Q12H [facility] Lidocaine (Lidoderm) 1 ea TD DAILY [facility] Last Admin: 02/07/18 09:37 Dose: 1 ea Lorazepam (Ativan) 1 mg IVP STAT PRN PRN Reason: Symptoms of alcohol withdrawl Nicotine (Nicoderm Cq) 1 patch TD DAILY [facility] Last Admin: 02/07/18 09:39 Dose: 1 patch Ondansetron HCl (Zofran Inj) 4 mg IVP Q6 PRN PRN Reason: Nausea/Vomiting Last Admin: 01/30/18 16:34 Dose: 4 mg Pantoprazole Sodium (Protonix Inj) 40 mg IVP DAILY [facility] Thiamine HCl (Vitamin B1 Inj) 100 mg IM DAILY [facility] Last Admin: 02/07/18 09:40 Dose: 100 mg Tobramycin Sulfate (Tobrex 0.3% Ophth Soln) 2 drop OU Q6 JANNIE Last Admin: 02/07/18 09:39 Dose: 2 drop Zolpidem Tartrate (Ambien) 5 mg PO HS PRN PRN Reason: Insomnia Last Admin: 02/06/18 23:11 Dose: 5 mg - Labs Labs: 02/06/18 05:30 02/06/18 05:30 PT 21.2 Seconds (9.8-13.1) H 02/04/18 10:54 INR 1.9 02/04/18 10:54 APTT 28.8 Seconds (25.6-37.1) 01/31/18 21:03 - Constitutional Appears: Well, Non-toxic, No Acute Distress - Head Exam Head Exam: ATRAUMATIC, NORMOCEPHALIC - Eye Exam Eye Exam: Scleral icterus. absent: Conjunctival injection - ENT Exam ENT Exam: Mucous Membranes Moist, Normal Oropharynx - Respiratory Exam Respiratory Exam: NORMAL BREATHING PATTERN. absent: Accessory Muscle Use, Respiratory Distress - Cardiovascular Exam Cardiovascular Exam: RRR - GI/Abdominal Exam GI & Abdominal Exam: Distended, Soft. absent: Tenderness - Extremities Exam Extremities Exam: Pedal Edema (1+ pitting edema extending to proximal lower leg) . absent: Calf Tenderness, Tenderness - Neurological Exam Neurological Exam: Alert, Awake, Oriented x3 - Psychiatric Exam Psychiatric exam: Normal Affect, Normal Mood - Skin Skin Exam: Dry, Intact, Normal Color, Warm Assessment and Plan - Assessment and Plan (Free Text) Assessment: 52M with cirrhosis and prior GI bleed from duodenal ulcer, now resolved Plan: Recommend Supplement iron for anemia Restrict water and salt intake--continue current diet Encourage ambulation No further incidence of blood in stool--no further indication for endoscopy or GI intervention at this time Strongly recommend cessation of ETOH use upon discharge Discussed with Dr. Swartz, who agrees with above Padmini Healy, Pgy2
--- NOTE | 2018-02-07 12:40 | CP.PCM.PN ---
Subjective - Date & Time of Evaluation Date of Evaluation: 02/07/18 Time of Evaluation: 12:40 - Subjective Subjective: ID note- Pt. seen and examined today in med-surg floor. pt. is in good spirits. He is sitting up and eating lunch. denies any abd. pain, denies any diarrhea, denies any nausea. Objective - Vital Signs/Intake and Output Vital Signs (last 24 hours): Temp Pulse Resp BP Pulse Ox 98.1 F 75 19 112/72 96 02/07/18 08:26 02/07/18 08:26 02/07/18 08:26 02/07/18 08:26 02/07/18 08:26 Intake and Output: 02/07/18 02/07/18 06:59 18:59 Intake Total 1100 Output Total 600 Balance 500 - Medications Medications: Current Medications Acetaminophen (Tylenol 325mg Tab) 650 mg PO Q6 PRN PRN Reason: Pain, moderate (4-7) Last Admin: 02/07/18 05:59 Dose: 650 mg Ferrous Sulfate (Feosol) 325 mg PO DAILY JANNIE Folic Acid (Folic Acid) 1 mg PO DAILY JANNIE Piperacillin Sod/Tazobactam (Sod 4.5 gm/ Sodium Chloride) 100 mls @ 100 mls/hr IVPB Q8 JANNIE PRN Reason: Protocol Last Admin: 02/07/18 09:44 Dose: 100 mls/hr Metronidazole (Flagyl 500mg/100ml Ns) 100 mls @ 100 mls/hr IVPB Q8 AJNNIE PRN Reason: Protocol Last Admin: 02/07/18 09:47 Dose: 100 mls/hr FLUCONAZOLE IN DEXTROSE (Fluconazole-Dext 200 Mg/100 Ml) 100 mg in 50 mls @ 50 mls/hr IVPB DAILY JANNIE PRN Reason: Protocol Last Admin: 02/07/18 09:47 Dose: 50 mls/hr Levetiracetam (Keppra) 500 mg PO Q12H [facility]ANNIE Lidocaine (Lidoderm) 1 ea TD DAILY JANNIE Last Admin: 02/07/18 09:37 Dose: 1 ea Lorazepam (Ativan) 1 mg IVP STAT PRN PRN Reason: Symptoms of alcohol withdrawl Nicotine (Nicoderm Cq) 1 patch TD DAILY [facility] Last Admin: 02/07/18 09:39 Dose: 1 patch Ondansetron HCl (Zofran Inj) 4 mg IVP Q6 PRN PRN Reason: Nausea/Vomiting Last Admin: 01/30/18 16:34 Dose: 4 mg Pantoprazole Sodium (Protonix Inj) 40 mg IVP DAILY [facility] Thiamine HCl (Vitamin B1 Inj) 100 mg IM DAILY JANNIE Last Admin: 02/07/18 09:40 Dose: 100 mg Tobramycin Sulfate (Tobrex 0.3% Ophth Soln) 2 drop OU Q6 JANNIE Last Admin: 02/07/18 09:39 Dose: 2 drop Zolpidem Tartrate (Ambien) 5 mg PO HS PRN PRN Reason: Insomnia Last Admin: 02/06/18 23:11 Dose: 5 mg - Labs Labs: - Additional Findings Additional findings: - Constitutional Appears: NAD - Eye Exam Eye Exam: PERRL - ENT Exam ENT Exam: Normal Oropharynx - Neck Exam Neck exam: Positive for: Full Rom - Respiratory Exam Respiratory Exam: NORMAL BREATHING PATTERN Additional comments: no wheezing breath sounds heard b/l - Cardiovascular Exam Cardiovascular Exam: RRR, +S1, +S2 - GI/Abdominal Exam GI & Abdominal Exam: Soft Additional comments: No distention, no tenderness + bowel sounds - Extremities Exam Additional comments: b/l LE edema - Neurological Exam Additional comments: AAO x 3 Laboratory Results - last 72 hr 02/04/18 02/05/18 02/05/18 12:45 05:30 05:30 WBC 3.0 L RBC 2.66 L Hgb 7.8 L Hct 23.0 L MCV 86.6 MCH 29.3 MCHC 33.8 RDW 21.5 H Plt Count 65 L MPV 7.2 Neut % (Auto) 62.0 Lymph % (Auto) 17.9 L [place] % (Auto) 13.7 H Eos % (Auto) 5.8 H Baso % (Auto) 0.6 Neut # (Auto) 1.9 Lymph # (Auto) 0.5 L [place] # (Auto) 0.4 Eos # (Auto) 0.2 Baso # (Auto) 0.0 Sodium 136 Potassium 4.0 Chloride 111 H Carbon Dioxide 22 Anion Gap 7 L BUN 14 Creatinine 0.6 L Est GFR ( Amer) > 60 Est GFR (Non-Af Amer) > 60 Random Glucose 99 Calcium 7.3 L Iron TIBC % Saturation Ferritin Total Bilirubin 2.0 H AST 68 H ALT 42 Alkaline Phosphatase 139 H Lactate Dehydrogenase 540 Total Protein 4.9 L Albumin 1.9 L Globulin 3.0 Albumin/Globulin Ratio 0.6 L Lipase Fluid Appearance Sl cloudy Fluid WBC 56.0 Fluid RBC 63.0 H Fluid Tot Cell Count 100 H Fluid Neutrophils 41.0 H Fluid Lymphocytes 23.0 H Fld Monocyte/Macrophag 36 H Fluid Comment 02/06/18 02/06/18 02/06/18 05:30 05:30 05:30 WBC 3.2 L RBC 2.70 L Hgb 7.8 L Hct 23.6 L MCV 87.5 MCH 29.0 MCHC 33.1 RDW 21.2 H Plt Count 62 L MPV 7.5 Neut % (Auto) 57.6 Lymph % (Auto) 21.3 [place] % (Auto) 14.9 H Eos % (Auto) 5.3 H Baso % (Auto) 0.9 Neut # (Auto) 1.8 Lymph # (Auto) 0.7 L [place] # (Auto) 0.5 Eos # (Auto) 0.2 Baso # (Auto) 0.0 Sodium 137 Potassium 3.7 Chloride 111 H Carbon Dioxide 23 Anion Gap 7 L BUN 14 Creatinine 0.6 L Est GFR ( Amer) > 60 Est GFR (Non-Af Amer) > 60 Random Glucose 98 Calcium 7.4 L Iron 14 L TIBC 276 % Saturation 5 L Ferritin 33.4 Total Bilirubin AST ALT Alkaline Phosphatase Lactate Dehydrogenase Total Protein Albumin Globulin Albumin/Globulin Ratio Lipase Fluid Appearance Fluid WBC Fluid RBC Fluid Tot Cell Count Fluid Neutrophils Fluid Lymphocytes Fld Monocyte/Macrophag Fluid Comment 02/06/18 09:00 WBC RBC Hgb Hct MCV MCH MCHC RDW Plt Count MPV Neut % (Auto) Lymph % (Auto) [place] % (Auto) Eos % (Auto) Baso % (Auto) Neut # (Auto) Lymph # (Auto) [place] # (Auto) Eos # (Auto) Baso # (Auto) Sodium Potassium Chloride Carbon Dioxide Anion Gap BUN Creatinine Est GFR ( Amer) Est GFR (Non-Af Amer) Random Glucose Calcium Iron TIBC % Saturation Ferritin Total Bilirubin AST ALT Alkaline Phosphatase Lactate Dehydrogenase Total Protein Albumin Globulin Albumin/Globulin Ratio Lipase 272 Fluid Appearance Fluid WBC Fluid RBC Fluid Tot Cell Count Fluid Neutrophils Fluid Lymphocytes Fld Monocyte/Macrophag Fluid Comment Microbiology 02/04/18 10:10 Ascitic Fluid Gram Stain - Final 02/04/18 10:10 Ascitic Fluid Body Fluid Culture - Preliminary NO GROWTH AFTER 2 DAYS 02/04/18 08:00 Naris MRSA Culture (Admit) - Final MRSA NOT DETECTED 01/31/18 14:48 Blood-Venous Blood Culture - Final NO GROWTH AFTER 5 DAYS 01/31/18 14:48 Blood-Venous Gram Stain - Final TEST NOT PERFORMED 01/31/18 14:38 Blood-Venous Blood Culture - Final NO GROWTH AFTER 5 DAYS 01/31/18 14:38 Blood-Venous Gram Stain - Final TEST NOT PERFORMED 01/30/18 14:00 Blood-Venous Blood Culture - Final NO GROWTH AFTER 5 DAYS 01/30/18 14:00 Blood-Venous Gram Stain - Final TEST NOT PERFORMED 01/30/18 18:19 Nose MRSA Culture (Admit) - Final MRSA NOT DETECTED 01/31/18 06:45 Urine Urine Culture - Final No Growth (<1,000 CFU/ML) Accession No. : [id number] Patient Name / ID : LIANET Wilks / [id number] Exam Date : 02/05/2018 12:17:02 ( Approved ) Study Comment : Sex / Age : M / 52Y Creator : Will Kilpatrick MD Dictator : Will Kilpatrick MD Home Economist Consumer Service : [employer] Equipment Salesperson : Will Kilpatrick MD Approver2 : Report Date : 02/05/2018 17:18:36 My Comment : Date of service: 02/05/2018 PROCEDURE: CT Abdomen and Pelvis with contrast HISTORY: colitis COMPARISON: 01/30/2018 TECHNIQUE: Contrast dose: 98 cc Omnipaque 300 Radiation dose: Total exam DLP = 1058.80 mGy-cm. This CT exam was performed using one or more of the following dose reduction techniques: Automated exposure control, adjustment of the mA and/or kV according to patient size, and/or use of iterative reconstruction technique. FINDINGS: LOWER THORAX: Small bilateral pleural effusion with bilateral lower lobe compressive atelectasis. LIVER: Markedly nodular hepatic contour consistent with cirrhosis. Relative atrophy of the right lobe of the liver. No mass. No biliary dilatation. TIPS shunt noted. The shunt appears patent. No evidence of portal venous or splenic vein thrombosis. GALLBLADDER AND BILE DUCTS: Cholelithiasis. Minimal mural thickening, nonspecific. PANCREAS: There is fluid/ edema about the pancreatic head and proximal body, nonspecific but which may reflect a pancreatitis. This represents interval change from the appearance on prior CT examination. No pancreatic mass. SPLEEN: Marked splenomegaly. The spleen measures 18.9 cm length. ADRENALS: Unremarkable. No mass. KIDNEYS AND URETERS: Unremarkable. No hydronephrosis. No solid mass. VASCULATURE: Unremarkable. No aortic aneurysm. BOWEL: There is mural thickening of the entire gastric wall. There is mural thickening of the entire duodenum. There is mural thickening of multiple loops of jejunum in the left abdomen. The findings are nonspecific and may reflect an infectious or inflammatory enteritis. Please note that the thickened duodenum is adjacent to the pancreas in the retroperitoneum and it is possible that the retroperitoneal fluid/edema noted above may be the result of an enteritis or may be the result of a pancreatitis. APPENDIX: Normal appendix. PERITONEUM: Ascites. LYMPH NODES: Unremarkable. No enlarged lymph nodes. BLADDER: Unremarkable. REPRODUCTIVE: Normal prostate BONES: No acute fracture. OTHER FINDINGS: None. IMPRESSION: Small bilateral pleural effusion with bilateral lower lobe compressive atelectasis. Ascites. Retroperitoneal fluid/ edema possibly reflecting an acute pancreatitis. Please correlate. Mural thickening of the stomach, duodenum and multiple loops of jejunum. Nonspecific enteritis. Previously identified colitis has resolved. Splenomegaly. Hepatic cirrhosis. Tips shunt patent. Assessment and Plan (1) Anemia Status: Acute (2) GI bleed Status: Acute (3) Esophageal and gastric varices Status: Acute (4) Abdominal pain Status: Resolved (5) Alcohol withdrawal seizure Status: Acute (6) Alcoholism Status: Acute (7) Hematemesis Status: Acute - Assessment and Plan (Free Text) Assessment: A/P- 52 year old male with h/o ETOH abuse/ and seizures, cirrhosis s/p TIPs, thrombocytopenia admitted with hematemesis and hematochezia found to be intoxicated again with EOH levels that are high and anemic . clinically much improved. eating food today. afebrile minimal leukopenia chronic thrombocytopenia blood cx- neg x 3 CT abd report- colitis resolved, has duodenitis and ascites ascites fluid cell count NOt c/w sbp. ascites fluid cx- neg UA- neg Plan- completed 10 days of empiric IV abx for enteritis/colitis with flagyl and zosyn. advise 2 more days of these abx. has completed 8 days of empiric antifungal . advise to d/c fluconazole today. GI f/u. all above d/w DR.Pierre Montaño.
[2018-02-07] MEDS: Ammonium Lactate 12% Cream (140 g) TOP SCH (18:32)
[2018-02-08] MEDS: Tobramycin 0.3% OPHT SOLN OU SCH ×4 (03:47→21:02)
[2018-02-08 06:28] LABS: BASO # 0.1 K/uL (0.0-0.2); BASO % 3.6 % (0.0-2.0); EOS # 0.2 K/uL (0.0-0.7); EOS % 5.4 % (0.0-4.0); LYMPH # 0.7 K/uL (1.0-4.3); LYMPH % 22.7 % (20.0-40.0); MEAN CELL VOLUME 87.4 fl (80.0-94.0); MEAN CORPUSCULAR HEMOGLOBIN 28.9 pg (27.0-31.0); MEAN PLATELET VOLUME 7.2 fl (7.2-11.7); MONO # 0.4 K/uL (0.0-0.8); MONO % 11.6 % (0.0-10.0); NEUT # 1.8 K/uL (1.8-7.0); NEUT % 56.7 % (50.0-75.0); PLATELET COUNT 81 K/uL (130-400); RBC 2.78 Mil/uL (4.40-5.90); RED CELL DISTRIBUTION WIDTH 21.2 % (11.5-14.5); WHITE BLOOD COUNT 3.2 K/uL (4.8-10.8)
[2018-02-08 06:32] LABS: ALB/GLOB RATIO 0.6 (1.0-2.1); ALBUMIN 2.1 g/dL (3.5-5.0); ALT/SGPT 39 U/L (21-72); AST/SGOT 69 U/L (17-59); BLOOD UREA NITROGEN 14 mg/dl (9-20); CALCIUM 7.5 mg/dL (8.4-10.2); GFR NON-AFRICAN AMERICAN > 60
[2018-02-08] MEDS: Ammonium Lactate 12% Cream (140 g) TOP SCH (08:22)
[2018-02-08] MEDS: Thiamine 100 mg/ml Inj IM SCH (08:22)
[2018-02-08] MEDS: Lidocaine 5% Patch TD SCH (08:23)
--- NOTE | 2018-02-08 09:52 | CP.PCM.PN ---
Subjective - Date & Time of Evaluation Date of Evaluation: 02/08/18 Time of Evaluation: 09:30 - Subjective Subjective: No acute overnight events. Pt states that he worked with PT yesterday, walked with walker. Continue to endorse swollen ext and genitals. Denies dyspnea, n/v, abdominal pain, chills, and remains without fever. Objective - Vital Signs/Intake and Output Vital Signs (last 24 hours): Temp Pulse Resp BP Pulse Ox 98.0 F 85 20 123/72 97 02/08/18 08:17 02/08/18 08:17 02/08/18 08:17 02/08/18 08:25 02/08/18 08:17 Intake and Output: 02/08/18 02/08/18 06:59 18:59 Intake Total 1100 Output Total 1650 Balance -550 - Medications Medications: Current Medications Acetaminophen (Tylenol 325mg Tab) 650 mg PO Q6 PRN PRN Reason: Pain, moderate (4-7) Last Admin: 02/08/18 03:46 Dose: 650 mg Ferrous Sulfate (Feosol) 325 mg PO DAILY [facility] Last Admin: 02/08/18 08:22 Dose: 325 mg Folic Acid (Folic Acid) 1 mg PO DAILY [facility] Last Admin: 02/08/18 08:22 Dose: 1 mg Lactic Acid (Lac-Hydrin 12% Cream (140 G)) 1 ea TOP DAILY [facility] Last Admin: 02/08/18 08:22 Dose: 1 u Levetiracetam (Keppra) 500 mg PO Q12 [facility] Last Admin: 02/08/18 08:22 Dose: 500 mg Lidocaine (Lidoderm) 1 ea TD DAILY [facility] Last Admin: 02/08/18 08:23 Dose: 1 ea Lorazepam (Ativan) 1 mg IVP STAT PRN PRN Reason: Symptoms of alcohol withdrawl Nicotine (Nicoderm Cq) 1 patch TD DAILY [facility] Last Admin: 02/08/18 08:23 Dose: 1 patch Ondansetron HCl (Zofran Inj) 4 mg IVP Q6 PRN PRN Reason: Nausea/Vomiting Last Admin: 01/30/18 16:34 Dose: 4 mg Pantoprazole Sodium (Protonix Inj) 40 mg IVP DAILY [facility] Last Admin: 02/08/18 08:22 Dose: 40 mg Thiamine HCl (Vitamin B1 Inj) 100 mg IM DAILY [facility] Last Admin: 02/08/18 08:22 Dose: 100 mg Tobramycin Sulfate (Tobrex 0.3% Ophth Soln) 2 drop OU Q6 [facility] Last Admin: 02/08/18 09:07 Dose: 2 drop Zolpidem Tartrate (Ambien) 5 mg PO HS PRN PRN Reason: Insomnia Last Admin: 02/07/18 21:12 Dose: 5 mg - Labs Labs: 02/08/18 05:55 02/08/18 05:55 PT 21.2 Seconds (9.8-13.1) H 02/04/18 10:54 INR 1.9 02/04/18 10:54 APTT 28.8 Seconds (25.6-37.1) 01/31/18 21:03 - Constitutional Appears: No Acute Distress - Head Exam Head Exam: NORMAL INSPECTION - Respiratory Exam Respiratory Exam: Decreased Breath Sounds (in the lower lobes b/l ), NORMAL BREATHING PATTERN. absent: Rales, Wheezes - Cardiovascular Exam Cardiovascular Exam: REGULAR RHYTHM, +S1, +S2 - GI/Abdominal Exam GI & Abdominal Exam: Distended, Firm, Normal Bowel Sounds. absent: Tenderness Additional comments: unable to appreciate a fluid wave - Extremities Exam Extremities Exam: Pedal Edema. absent: Calf Tenderness Additional comments: 2+ pitting edema up to the knees and 1+ up to mid-thigh - Back Exam Back Exam: NORMAL INSPECTION - Neurological Exam Neurological Exam: Alert, Awake - Skin Skin Exam: Pallor Assessment and Plan - Assessment and Plan (Free Text) Assessment: Assessment/Plan: 52 YO with PMHx of ETOH abuse, unwitnessed seizures, cirrhosis (s/p TIPS), hepatic encephalograph is admitted for acute GI bleed requiring multiple blood transfusions and colitis. Admission complicated by now with generalized edema. Edema, Ascites -likely 2/2 to cirrhosis, hypoalbuminemia -Abdomen u/s 02/03: intra-abdominal and pelvic ascites -s/p paracentesis by IR 70cc of yellow fluid drained 02/04 -fluid studies sig for liver cirrhosis, SBP ruled out. Cx no growth x 2 days -s/p 12.5gm of albumin 02/04 -s/p 2 dose of lasix 02/05, 2 dose lasix 02/07 -GI consulted; IV iron and no endoscopy now -all IVPB meds adjusted, d/c and converted to PO as needed -daily weights and strict I/O -1x 20mg IVP lasix today Acute GI bleeding -h/h stable -s/p 8 units of PRBC transfusions and 2 FFPs -EGD 01/31/2018: ulcerative duodentitis, grade II esophageal varices at lower 1/3 , alcoholic gastritis, duodenal ulcers -EGD 02/04: non-bleeding gastric ulcer, non-bleeding doudenal ulcer. Path sig for mild chronic gastritis, no H pylori -Colonoscopy (06/2017) Poor prep, internal/external hemorrhoids -GI on board; no further GI intervention at this time -protonix PO, Zofran 4 mg IV Q6 PRN -serial CBC Grade II esophageal Varices -stable -EGD 01/31/18: grade II esophageal varices at lower 1/3 -s/p TIPS procedure in the past -GI on board; per GI pt does not need a beta shae at this time given hx of TIPS Typhilitis/colitis/duodenitis -Resolved, as noted in repeat CT 02/05 -ID on consult: completed abx tx with Zosyn, Metronidazole and fluconazole -c. diff toxin a/b and stool cx pending Pancytopenia -chronic, stable -ANC 1814 02/08 -likely 2/2 to live failure vs bone marrow suppression 2/2 to etoh abuse/liver failure -platelets 50 s/p Vitamin K 5mg PO once 01/31/2018 Right shoulder pain -improving -s/p fall 01/23/2018 -Right shoulder x-ray negative for fracture -Lidoderm patch 1 TD QD PRN -compliance with PT encouraged Hx of Seizures -Keppra 500 IV PO Cirrhosis 2/2 ETOH abuse -Meld score: 19; Ypzat-Ggjhnrxv-Enbt Score: 11C -alcohol level 57 in ED -CIWA protocol Q1hrs -Ativan 1 mg PRN Deconditioning -PT/OT on board -low ext weakness -rec TCU DVT prophylaxis -SCDs
--- NOTE | 2018-02-08 10:01 | CP.PCM.PN ---
Subjective - Date & Time of Evaluation Date of Evaluation: 02/08/18 Time of Evaluation: 08:50 - Subjective Subjective: GI consult note for Dr. Swartz Pt seen and examined at bedside this AM. Still complains of scrotal and BL lower extremity swelling and shoulder pain but denies any abdominal pain, nausea , and states he is tolerating his diet and had normal colored, normal consistency bowel movements yesterday Objective - Vital Signs/Intake and Output Vital Signs (last 24 hours): Temp Pulse Resp BP Pulse Ox 98.0 F 85 20 123/72 97 02/08/18 08:17 02/08/18 08:17 02/08/18 08:17 02/08/18 08:25 02/08/18 08:17 Intake and Output: 02/08/18 02/08/18 06:59 18:59 Intake Total 1100 Output Total 1650 Balance -550 - Medications Medications: Current Medications Acetaminophen (Tylenol 325mg Tab) 650 mg PO Q6 PRN PRN Reason: Pain, moderate (4-7) Last Admin: 02/08/18 03:46 Dose: 650 mg Ferrous Sulfate (Feosol) 325 mg PO DAILY [facility] Last Admin: 02/08/18 08:22 Dose: 325 mg Folic Acid (Folic Acid) 1 mg PO DAILY [facility] Last Admin: 02/08/18 08:22 Dose: 1 mg Lactic Acid (Lac-Hydrin 12% Cream (140 G)) 1 ea TOP DAILY [facility] Last Admin: 02/08/18 08:22 Dose: 1 u Levetiracetam (Keppra) 500 mg PO Q12 [facility] Last Admin: 02/08/18 08:22 Dose: 500 mg Lidocaine (Lidoderm) 1 ea TD DAILY [facility] Last Admin: 02/08/18 08:23 Dose: 1 ea Lorazepam (Ativan) 1 mg IVP STAT PRN PRN Reason: Symptoms of alcohol withdrawl Nicotine (Nicoderm Cq) 1 patch TD DAILY [facility] Last Admin: 02/08/18 08:23 Dose: 1 patch Ondansetron HCl (Zofran Inj) 4 mg IVP Q6 PRN PRN Reason: Nausea/Vomiting Last Admin: 01/30/18 16:34 Dose: 4 mg Pantoprazole Sodium (Protonix Inj) 40 mg IVP DAILY [facility] Last Admin: 02/08/18 08:22 Dose: 40 mg Thiamine HCl (Vitamin B1 Inj) 100 mg IM DAILY [facility] Last Admin: 02/08/18 08:22 Dose: 100 mg Tobramycin Sulfate (Tobrex 0.3% Ophth Soln) 2 drop OU Q6 [facility] Last Admin: 02/08/18 09:07 Dose: 2 drop Zolpidem Tartrate (Ambien) 5 mg PO HS PRN PRN Reason: Insomnia Last Admin: 02/07/18 21:12 Dose: 5 mg - Labs Labs: 02/08/18 05:55 02/08/18 05:55 PT 21.2 Seconds (9.8-13.1) H 02/04/18 10:54 INR 1.9 02/04/18 10:54 APTT 28.8 Seconds (25.6-37.1) 01/31/18 21:03 - Constitutional Appears: Well, Non-toxic, No Acute Distress - Head Exam Head Exam: ATRAUMATIC, NORMOCEPHALIC - Eye Exam Eye Exam: Scleral icterus. absent: Conjunctival injection - ENT Exam ENT Exam: Mucous Membranes Moist, Normal Oropharynx - Respiratory Exam Respiratory Exam: NORMAL BREATHING PATTERN. absent: Accessory Muscle Use, Respiratory Distress - GI/Abdominal Exam GI & Abdominal Exam: Distended, Soft, Hernia (umbilical, reducible hernia). absent: Tenderness - Extremities Exam Extremities Exam: absent: Calf Tenderness, Pedal Edema, Tenderness - Neurological Exam Neurological Exam: Alert, Awake, Oriented x3 - Psychiatric Exam Psychiatric exam: Normal Affect, Normal Mood - Skin Skin Exam: Dry, Intact, Normal Color, Warm Assessment and Plan - Assessment and Plan (Free Text) Assessment: 52M with Chronic cirrhosis and recent UGI bleed likely d/t duodenal ulcers, now resolved Plan: Continue to monitor CBC Continue low fat, water restricted diet Continue lasix Continue to monitor for any further clinical sign of GI bleed Will need repeat EGD in the future and follow up with Dr. Swartz as outpatient No indication for further GI intervention at this time Discussed with DR. Sheridan Healy, PGY2
[2018-02-08 12:01] LABS: EOSINOPHIL 2 % (0-7); LYMPHOCYTE 12 % (20-50); MONOCYTE 6 % (0-10); NEUTROPHIL 80 % (42-75); PLATELET ESTIMATE DECREASED (NORMAL); TOTAL CELLS COUNTED 100
[2018-02-08 12:02] LABS: ANISOCYTOSIS MODERATE; BURR CELLS SLIGHT; HYPOCHROMIC SLIGHT; OVALOCYTES SLIGHT
[2018-02-08 12:03] LABS: TARGET CELLS SLIGHT
--- NOTE | 2018-02-08 12:53 | US ---
Date of Procedure: 02/04/2018 PROCEDURE: Ultrasound-guided paracentesis, CPT 51305 Medications: 7 cc 1% Lidocaine HISTORY: Ascites, abdominal pain TECHNIQUE: Following informed consent , the patient was placed supine on the stretcher and the site was marked. A limited abdominal ultrasound was performed that showed a small amount of intra-abdominal fluid. Procedural time out was called and the Pt's abdomen was marked and prepped and draped in the usual sterile fashion. Ultrasound-guided paracentesis performed. A total of 70 cc of straw colored fluid was removed without complication. Fluid specimen was sent for culture, sensitivity, cytology and chemistries. IMPRESSION: Abdominal ultrasound showed a small amount of ascites. Ultrasound-guided paracentesis.
[2018-02-09] MEDS: Tobramycin 0.3% OPHT SOLN OU SCH ×4 (03:52→21:06)
--- NOTE | 2018-02-09 09:26 | CP.PCM.PN ---
Subjective - Date & Time of Evaluation Date of Evaluation: 02/09/18 Time of Evaluation: 09:23 - Subjective Subjective: No acute overnight events. Weight today is 196 from 200 yesterday. Edema slowly improving. Pt states that he is feeling well, denies dyspnea, n/v and remains without fever. Objective - Vital Signs/Intake and Output Vital Signs (last 24 hours): Temp Pulse Resp BP Pulse Ox 97.8 F 78 20 128/69 98 02/09/18 07:42 02/09/18 07:42 02/09/18 07:42 02/09/18 07:42 02/09/18 07:42 - Medications Medications: Current Medications Acetaminophen (Tylenol 325mg Tab) 650 mg PO Q6 PRN PRN Reason: Pain, moderate (4-7) Last Admin: 02/09/18 05:16 Dose: 650 mg Ferrous Sulfate (Feosol) 325 mg PO DAILY [facility] Last Admin: 02/08/18 08:22 Dose: 325 mg Folic Acid (Folic Acid) 1 mg PO DAILY [facility] Last Admin: 02/08/18 08:22 Dose: 1 mg Furosemide (Lasix) 20 mg IVP ONCE ONE Stop: 02/09/18 10:01 Lactic Acid (Lac-Hydrin 12% Cream (140 G)) 1 ea TOP DAILY [facility] Last Admin: 02/08/18 08:22 Dose: 1 u Lactulose (Enulose) 20 gm PO DAILY PRN PRN Reason: Constipation Levetiracetam (Keppra) 500 mg PO Q12 [facility] Last Admin: 02/08/18 21:02 Dose: 500 mg Lidocaine (Lidoderm) 1 ea TD DAILY [facility] Last Admin: 02/08/18 08:23 Dose: 1 ea Lorazepam (Ativan) 1 mg IVP STAT PRN PRN Reason: Symptoms of alcohol withdrawl Nicotine (Nicoderm Cq) 1 patch TD DAILY [facility] Last Admin: 02/08/18 08:23 Dose: 1 patch Ondansetron HCl (Zofran Inj) 4 mg IVP Q6 PRN PRN Reason: Nausea/Vomiting Last Admin: 01/30/18 16:34 Dose: 4 mg Pantoprazole Sodium (Protonix Ec Tab) 40 mg PO DAILY [facility] Thiamine HCl (Vitamin B1 Inj) 100 mg IM DAILY [facility] Last Admin: 02/08/18 08:22 Dose: 100 mg Tobramycin Sulfate (Tobrex 0.3% Ophth Soln) 2 drop OU Q6 [facility] Last Admin: 02/09/18 03:52 Dose: 2 drop Zolpidem Tartrate (Ambien) 5 mg PO HS PRN PRN Reason: Insomnia Last Admin: 02/08/18 21:02 Dose: 5 mg - Labs Labs: 02/08/18 05:55 02/08/18 05:55 PT 21.2 Seconds (9.8-13.1) H 02/04/18 10:54 INR 1.9 02/04/18 10:54 APTT 28.8 Seconds (25.6-37.1) 01/31/18 21:03 - Constitutional Appears: No Acute Distress - Eye Exam Eye Exam: Normal appearance - ENT Exam ENT Exam: Mucous Membranes Moist - Respiratory Exam Respiratory Exam: Decreased Breath Sounds (in the lower lobes), NORMAL BREATHING PATTERN. absent: Rales, Wheezes - Cardiovascular Exam Cardiovascular Exam: REGULAR RHYTHM, +S1, +S2 - GI/Abdominal Exam GI & Abdominal Exam: Distended, Firm, Normal Bowel Sounds. absent: Guarding, Rigid, Tenderness - Exam Exam: Circumcision, Scrotal Swelling (and penile edema) - Extremities Exam Extremities Exam: Pedal Edema (1+ pitting edema up to the lower thigh ) - Back Exam Back Exam: absent: CVA tenderness (L), CVA tenderness (R) - Neurological Exam Neurological Exam: Alert, Awake Assessment and Plan - Assessment and Plan (Free Text) Assessment: Assessment/Plan: 52 YO with PMHx of ETOH abuse, unwitnessed seizures, cirrhosis (s/p TIPS), hepatic encephalograph is admitted for acute GI bleed requiring multiple blood transfusions and colitis. Admission complicated by now with generalized edema. Edema, Ascites -mild improvement -likely 2/2 to cirrhosis, hypoalbuminemia -Abdomen u/s 02/03: intra-abdominal and pelvic ascites -s/p paracentesis by IR 70cc of yellow fluid drained 02/04 -fluid studies sig for liver cirrhosis, SBP ruled out. Cx no growth x 2 days -s/p 12.5gm of albumin 02/04 -s/p 2 dose of lasix 02/05, 02/07, 02/08 -GI consulted; IV iron and no endoscopy now -all IVPB meds adjusted, d/c and converted to PO as needed -daily weights and strict I/O -2x 20mg IVP lasix today Acute GI bleeding, anemia -h/h stable -s/p 8 units of PRBC transfusions and 2 FFPs -EGD 01/31/2018: ulcerative duodentitis, grade II esophageal varices at lower 1/3 , alcoholic gastritis, duodenal ulcers -EGD 02/04: non-bleeding gastric ulcer, non-bleeding doudenal ulcer. Path sig for mild chronic gastritis, no H pylori -Colonoscopy (06/2017) Poor prep, internal/external hemorrhoids -GI on board; no further GI intervention at this time -s/p 1 unit of IV venofer -protonix PO, Zofran 4 mg IV Q6 PRN -serial CBC Grade II esophageal Varices -stable -EGD 01/31/18: grade II esophageal varices at lower 1/3 -s/p TIPS procedure in the past -GI on board; per GI pt does not need a beta shae at this time given hx of TIPS Colitis -Resolved, as noted in repeat CT 02/05 -ID on consult: completed abx tx with Zosyn, Metronidazole and fluconazole -c. diff toxin a/b and stool cx pending Pancytopenia -chronic, stable -ANC 1814 02/08 -likely 2/2 to live failure vs bone marrow suppression 2/2 to etoh abuse/liver failure -platelets 50 s/p Vitamin K 5mg PO once 01/31/2018 Right shoulder pain -improving -s/p fall 01/23/2018 -Right shoulder x-ray negative for fracture -Lidoderm patch 1 TD QD PRN -compliance with PT encouraged Hx of Seizures -Keppra 500 IV PO Cirrhosis 2/2 ETOH abuse -Meld score: 19; Yqasv-Qyrumdwa-Bhrb Score: 11C -alcohol level 57 in ED -CIWA protocol Q1hrs -Ativan 1 mg PRN Deconditioning -PT/OT on board -low ext weakness -rec TCU DVT prophylaxis -SCDs
[2018-02-09] MEDS: Lidocaine 5% Patch TD SCH (09:28)
[2018-02-09] MEDS: Ammonium Lactate 12% Cream (140 g) TOP SCH (09:28)
[2018-02-09] MEDS: Pantoprazole 40 mg EC Tab PO SCH (09:29)
[2018-02-09] MEDS: Thiamine 100 mg/ml Inj IM SCH (09:30)
[2018-02-10] MEDS: Tobramycin 0.3% OPHT SOLN OU SCH ×2 (03:41→09:28)
[2018-02-10 07:16] LABS: BLOOD UREA NITROGEN 13 mg/dl (9-20); CALCIUM 7.6 mg/dL (8.4-10.2); GFR NON-AFRICAN AMERICAN > 60
[2018-02-10 07:39] VITALS: RESP 20; O2SAT 97
[2018-02-10] MEDS: Pantoprazole 40 mg EC Tab PO SCH (08:27)
[2018-02-10] MEDS: Lidocaine 5% Patch TD SCH (08:29)
[2018-02-10] MEDS: Thiamine 100 mg/ml Inj IM SCH (08:33)
[2018-02-10] MEDS: Ammonium Lactate 12% Cream (140 g) TOP SCH (08:35)
--- NOTE | 2018-02-10 13:25 | CP.PCM.PN ---
Subjective - Date & Time of Evaluation Date of Evaluation: 02/10/18 Time of Evaluation: 12:50 - Subjective Subjective: GI progress note for Dr. Swartz Patient seen and examined at bedside. Patient denies abdominal pain, nausea, vomiting, bloody bowel movements, and is tolerating diet. Diet modifications for cirrhosis re-inforced Objective - Vital Signs/Intake and Output Vital Signs (last 24 hours): Temp Pulse Resp BP Pulse Ox 98.4 F 79 20 120/72 97 02/10/18 07:38 02/10/18 07:38 02/10/18 07:38 02/10/18 09:26 02/10/18 07:38 Intake and Output: 02/10/18 02/10/18 06:59 18:59 Intake Total 400 Output Total 1900 Balance -1500 - Medications Medications: Current Medications Acetaminophen (Tylenol 325mg Tab) 650 mg PO Q6 PRN PRN Reason: Pain, moderate (4-7) Last Admin: 02/10/18 08:25 Dose: 650 mg Ferrous Sulfate (Feosol) 325 mg PO DAILY [facility] Last Admin: 02/10/18 08:27 Dose: 325 mg Folic Acid (Folic Acid) 1 mg PO DAILY [facility] Last Admin: 02/10/18 08:27 Dose: 1 mg Furosemide (Lasix) 20 mg IVP ONCE ONE Stop: 02/10/18 17:01 Lactic Acid (Lac-Hydrin 12% Cream (140 G)) 1 ea TOP DAILY [facility] Last Admin: 02/10/18 08:35 Dose: 1 applic Lactulose (Enulose) 20 gm PO DAILY PRN PRN Reason: Constipation Levetiracetam (Keppra) 500 mg PO Q12 [facility] Last Admin: 02/10/18 08:27 Dose: 500 mg Lidocaine (Lidoderm) 1 ea TD DAILY [facility] Last Admin: 02/10/18 08:29 Dose: 1 ea Lorazepam (Ativan) 1 mg IVP STAT PRN PRN Reason: Symptoms of alcohol withdrawl Nicotine (Nicoderm Cq) 1 patch TD DAILY [facility] Last Admin: 02/10/18 08:28 Dose: 1 patch Ondansetron HCl (Zofran Inj) 4 mg IVP Q6 PRN PRN Reason: Nausea/Vomiting Last Admin: 01/30/18 16:34 Dose: 4 mg Pantoprazole Sodium (Protonix Ec Tab) 40 mg PO DAILY [facility] Last Admin: 02/10/18 08:27 Dose: 40 mg Thiamine HCl (Vitamin B1 Inj) 100 mg IM DAILY [facility] Last Admin: 02/10/18 08:33 Dose: 100 mg Tobramycin Sulfate (Tobrex 0.3% Ophth Soln) 2 drop OU Q6 [facility] Last Admin: 02/10/18 09:28 Dose: 2 drop Zolpidem Tartrate (Ambien) 5 mg PO HS PRN PRN Reason: Insomnia Last Admin: 02/09/18 21:06 Dose: 5 mg - Labs Labs: 02/08/18 05:55 02/10/18 06:05 PT 21.2 Seconds (9.8-13.1) H 02/04/18 10:54 INR 1.9 02/04/18 10:54 APTT 28.8 Seconds (25.6-37.1) 01/31/18 21:03 - Constitutional Appears: Well, Non-toxic, No Acute Distress - Head Exam Head Exam: ATRAUMATIC, NORMOCEPHALIC - Eye Exam Eye Exam: Normal appearance. absent: Conjunctival injection, Scleral icterus - ENT Exam ENT Exam: Mucous Membranes Moist, Normal Oropharynx - Respiratory Exam Respiratory Exam: NORMAL BREATHING PATTERN. absent: Accessory Muscle Use, Respiratory Distress - Cardiovascular Exam Cardiovascular Exam: RRR - GI/Abdominal Exam GI & Abdominal Exam: Distended, Soft. absent: Tenderness - Extremities Exam Extremities Exam: Pedal Edema. absent: Calf Tenderness - Neurological Exam Neurological Exam: Alert, Awake, Oriented x3 - Psychiatric Exam Psychiatric exam: Normal Affect, Normal Mood - Skin Skin Exam: Dry, Normal Color, Warm Assessment and Plan - Assessment and Plan (Free Text) Assessment: 52M with PMH of cirrhosis and recent Upper GI bleed, GI bleed now resolved Plan: Continue to monitor CBC as long as he remains in the hospital Continue low salt, water restricted diet Continue lasix Will need repeat EGD in the future and follow up with Dr. Swartz as outpatient No indication for further GI intervention at this time Discussed with Dr. Sheridan Healy, Pgy2
--- NOTE | 2018-02-10 13:34 | CP.PCM.PN ---
Subjective - Date & Time of Evaluation Date of Evaluation: 02/10/18 Time of Evaluation: 08:38 - Subjective Subjective: No acute overnight events. Pt endorsing genital pain, worse when ambulating. Denies dyspnea, n/v, abdominal pain and remains without fever. Objective - Vital Signs/Intake and Output Vital Signs (last 24 hours): Temp Pulse Resp BP Pulse Ox 98.4 F 79 20 120/72 97 02/10/18 07:38 02/10/18 07:38 02/10/18 07:38 02/10/18 09:26 02/10/18 07:38 Intake and Output: 02/10/18 02/10/18 06:59 18:59 Intake Total 400 Output Total 1900 Balance -1500 - Medications Medications: Current Medications Acetaminophen (Tylenol 325mg Tab) 650 mg PO Q6 PRN PRN Reason: Pain, moderate (4-7) Last Admin: 02/10/18 08:25 Dose: 650 mg Ferrous Sulfate (Feosol) 325 mg PO DAILY [facility] Last Admin: 02/10/18 08:27 Dose: 325 mg Folic Acid (Folic Acid) 1 mg PO DAILY [facility] Last Admin: 02/10/18 08:27 Dose: 1 mg Furosemide (Lasix) 20 mg IVP ONCE ONE Stop: 02/10/18 17:01 Lactic Acid (Lac-Hydrin 12% Cream (140 G)) 1 ea TOP DAILY [facility] Last Admin: 02/10/18 08:35 Dose: 1 applic Lactulose (Enulose) 20 gm PO DAILY PRN PRN Reason: Constipation Levetiracetam (Keppra) 500 mg PO Q12 [facility] Last Admin: 02/10/18 08:27 Dose: 500 mg Lidocaine (Lidoderm) 1 ea TD DAILY [facility] Last Admin: 02/10/18 08:29 Dose: 1 ea Lorazepam (Ativan) 1 mg IVP STAT PRN PRN Reason: Symptoms of alcohol withdrawl Nicotine (Nicoderm Cq) 1 patch TD DAILY [facility] Last Admin: 02/10/18 08:28 Dose: 1 patch Ondansetron HCl (Zofran Inj) 4 mg IVP Q6 PRN PRN Reason: Nausea/Vomiting Last Admin: 01/30/18 16:34 Dose: 4 mg Pantoprazole Sodium (Protonix Ec Tab) 40 mg PO DAILY [facility] Last Admin: 02/10/18 08:27 Dose: 40 mg Thiamine HCl (Vitamin B1 Inj) 100 mg IM DAILY [facility] Last Admin: 02/10/18 08:33 Dose: 100 mg Tobramycin Sulfate (Tobrex 0.3% Ophth Soln) 2 drop OU Q6 [facility] Last Admin: 02/10/18 09:28 Dose: 2 drop Zolpidem Tartrate (Ambien) 5 mg PO HS PRN PRN Reason: Insomnia Last Admin: 02/09/18 21:06 Dose: 5 mg - Labs Labs: 02/08/18 05:55 02/10/18 06:05 PT 21.2 Seconds (9.8-13.1) H 02/04/18 10:54 INR 1.9 02/04/18 10:54 APTT 28.8 Seconds (25.6-37.1) 01/31/18 21:03 - Constitutional Appears: No Acute Distress - Head Exam Head Exam: NORMAL INSPECTION - ENT Exam ENT Exam: Mucous Membranes Moist - Respiratory Exam Respiratory Exam: Decreased Breath Sounds (in the lower lobes b/l ), NORMAL BREATHING PATTERN. absent: Rales, Wheezes - Cardiovascular Exam Cardiovascular Exam: REGULAR RHYTHM, +S1, +S2 - GI/Abdominal Exam GI & Abdominal Exam: Distended (mild improvement ), Firm, Normal Bowel Sounds. absent: Guarding, Tenderness - Extremities Exam Extremities Exam: Pedal Edema (1+ up to the mid thigh, wearing Teds). absent: Calf Tenderness - Back Exam Back Exam: NORMAL INSPECTION. absent: CVA tenderness (L), CVA tenderness (R) - Neurological Exam Neurological Exam: Alert, Awake - Psychiatric Exam Psychiatric exam: Normal Mood Assessment and Plan - Assessment and Plan (Free Text) Assessment: Assessment/Plan: 52 YO with PMHx of ETOH abuse, unwitnessed seizures, cirrhosis (s/p TIPS), hepatic encephalograph is admitted for acute GI bleed requiring multiple blood transfusions and colitis. Admission complicated by now with generalized edema. Edema, Ascites -improving -likely 2/2 to cirrhosis, hypoalbuminemia -Abdomen u/s 02/03: intra-abdominal and pelvic ascites -s/p paracentesis by IR 70cc of yellow fluid drained 02/04 -fluid studies sig for liver cirrhosis, SBP ruled out. Cx no growth x 2 days -s/p 12.5gm of albumin 02/04 -GI consulted; no additional intervention at this time -all IVPB meds adjusted, d/c and converted to PO as needed -daily weights and strict I/O -IVP lasix as needed Acute GI bleeding, anemia -resolved -h/h stable -s/p 8 units of PRBC transfusions and 2 FFPs -EGD 01/31/2018: ulcerative duodentitis, grade II esophageal varices at lower 1/3 , alcoholic gastritis, duodenal ulcers -EGD 02/04: non-bleeding gastric ulcer, non-bleeding doudenal ulcer. Path sig for mild chronic gastritis, no H pylori -Colonoscopy (06/2017) Poor prep, internal/external hemorrhoids -GI on board; no further GI intervention at this time -s/p 1 unit of IV venofer -protonix PO, Zofran 4 mg IV Q6 PRN -serial CBC Grade II esophageal Varices -stable -EGD 01/31/18: grade II esophageal varices at lower 1/3 -s/p TIPS procedure in the past -GI on board; per GI pt does not need a beta shae at this time given hx of TIPS Colitis -Resolved, as noted in repeat CT 02/05 -ID on consult: completed abx tx with Zosyn, Metronidazole and fluconazole -c. diff toxin a/b and stool cx pending Pancytopenia -chronic, stable -likely 2/2 to live failure vs bone marrow suppression 2/2 to etoh abuse/liver failure -platelets 50 s/p Vitamin K 5mg PO once 01/31/2018 Right shoulder pain -improving -s/p fall 01/23/2018 -Right shoulder x-ray negative for fracture -Lidoderm patch 1 TD QD PRN -compliance with PT encouraged Hx of Seizures -chronic, stable -Keppra 500 IV PO Cirrhosis 2/2 ETOH abuse -Meld score: 19; Yupda-Tekjqoth-Wesm Score: 11C -alcohol level 57 in ED -CIWA protocol Q1hrs -c/w lactulose 20mg daily -Ativan 1 mg PRN Deconditioning -PT/OT on board -low ext weakness -rec TCU DVT prophylaxis -SCDs
--- NOTE | 2018-02-10 13:58 | CP.PCM.DIS ---
Provider - Provider Date of Admission: 01/30/18 13:09 Attending physician: Stephany Sanchez MD Time Spent in preparation of Discharge (in minutes): 35 Diagnosis - Discharge Diagnosis (1) Alcohol abuse with intoxication Status: Chronic Priority: High (2) Anemia Status: Acute Priority: High (3) Hematemesis Status: Acute Priority: High (4) Abdominal pain Status: Acute Priority: Medium (5) Hepatic failure Status: Chronic (6) Seizure disorder Status: Chronic (7) Cirrhosis Status: Chronic (8) Acute gastrointestinal bleeding Status: Acute (9) Edema Status: Acute Hospital Course - Lab Results Lab Results: Micro Results 02/04/18 10:10 Ascitic Fluid Gram Stain - Final 02/04/18 10:10 Ascitic Fluid Body Fluid Culture - Final No growth. 02/04/18 08:00 Naris MRSA Culture (Admit) - Final MRSA NOT DETECTED 01/31/18 14:48 Blood-Venous Blood Culture - Final NO GROWTH AFTER 5 DAYS 01/31/18 14:48 Blood-Venous Gram Stain - Final TEST NOT PERFORMED 01/31/18 14:38 Blood-Venous Blood Culture - Final NO GROWTH AFTER 5 DAYS 01/31/18 14:38 Blood-Venous Gram Stain - Final TEST NOT PERFORMED 01/30/18 14:00 Blood-Venous Blood Culture - Final NO GROWTH AFTER 5 DAYS 01/30/18 14:00 Blood-Venous Gram Stain - Final TEST NOT PERFORMED 01/30/18 18:19 Nose MRSA Culture (Admit) - Final MRSA NOT DETECTED 01/31/18 06:45 Urine Urine Culture - Final No Growth (<1,000 CFU/ML) Most Recent Lab Values WBC 3.2 K/uL (4.8-10.8) L 02/08/18 05:55 RBC 2.78 Mil/uL (4.40-5.90) L 02/08/18 05:55 Hgb 8.0 g/dL (12.0-18.0) L 02/08/18 05:55 Hct 24.3 % (35.0-51.0) L 02/08/18 05:55 MCV 87.4 fl (80.0-94.0) 02/08/18 05:55 MCH 28.9 pg (27.0-31.0) 02/08/18 05:55 MCHC 33.0 g/dL (33.0-37.0) 02/08/18 05:55 RDW 21.2 % (11.5-14.5) H 02/08/18 05:55 Plt Count 81 K/uL (130-400) L 02/08/18 05:55 MPV 7.2 fl (7.2-11.7) 02/08/18 05:55 Neut % (Auto) 56.7 % (50.0-75.0) 02/08/18 05:55 Lymph % (Auto) 22.7 % (20.0-40.0) 02/08/18 05:55 [place] % (Auto) 11.6 % (0.0-10.0) H 02/08/18 05:55 Eos % (Auto) 5.4 % (0.0-4.0) H 02/08/18 05:55 Baso % (Auto) 3.6 % (0.0-2.0) H 02/08/18 05:55 Neut # (Auto) 1.8 K/uL (1.8-7.0) 02/08/18 05:55 Lymph # (Auto) 0.7 K/uL (1.0-4.3) L 02/08/18 05:55 [place] # (Auto) 0.4 K/uL (0.0-0.8) 02/08/18 05:55 Eos # (Auto) 0.2 K/uL (0.0-0.7) 02/08/18 05:55 Baso # (Auto) 0.1 K/uL (0.0-0.2) 02/08/18 05:55 Neutrophils % (Manual) 80 % (42-75) H 02/08/18 05:55 Lymphocytes % (Manual) 12 % (20-50) L 02/08/18 05:55 Monocytes % (Manual) 6 % (0-10) 02/08/18 05:55 Eosinophils % (Manual) 2 % (0-7) 02/08/18 05:55 Platelet Estimate Decreased (NORMAL) L 02/08/18 05:55 Hypochromasia (manual) Slight 02/08/18 05:55 Anisocytosis (manual) Moderate 02/08/18 05:55 Target Cells Slight 02/08/18 05:55 Ovalocytes Slight 02/08/18 05:55 [place] Cells Slight 02/08/18 05:55 PT 21.2 Seconds (9.8-13.1) H 02/04/18 10:54 INR 1.9 02/04/18 10:54 APTT 28.8 Seconds (25.6-37.1) 01/31/18 21:03 Sodium 138 mmol/l (132-148) 02/10/18 06:05 Potassium 4.0 MMOL/L (3.6-5.0) 02/10/18 06:05 Chloride 111 mmol/L (98-107) H 02/10/18 06:05 Carbon Dioxide 24 mmol/L (22-30) 02/10/18 06:05 Anion Gap 7 (10-20) L 02/10/18 06:05 BUN 13 mg/dl (9-20) 02/10/18 06:05 Creatinine 0.5 mg/dl (0.8-1.5) L 02/10/18 06:05 Est GFR ( Amer) > 60 02/10/18 06:05 Est GFR (Non-Af Amer) > 60 02/10/18 06:05 POC Glucose (mg/dL) 114 mg/dL (65-110) H 01/30/18 10:42 Random Glucose 93 mg/dL (75-110) 02/10/18 06:05 Lactic Acid 1.4 MMOL/L (0.7-2.1) 01/31/18 04:40 Calcium 7.6 mg/dL (8.4-10.2) L 02/10/18 06:05 Phosphorus 3.5 mg/dl (2.5-4.5) 01/31/18 04:40 Magnesium 1.9 MG/DL (1.6-2.3) 01/31/18 04:40 Iron 14 ug/dL (49-181) L 02/06/18 05:30 TIBC 276 ug/dL (250-450) 02/06/18 05:30 % Saturation 5 % (20-55) L 02/06/18 05:30 Ferritin 33.4 ng/Ml (17.9-464) 02/06/18 05:30 Total Bilirubin 1.5 mg/dl (0.2-1.3) H 02/08/18 05:55 AST 69 U/L (17-59) H 02/08/18 05:55 ALT 39 U/L (21-72) 02/08/18 05:55 Alkaline Phosphatase 156 U/L (38-126) H 02/08/18 05:55 Ammonia < 9 umo/L (16-60) L 02/01/18 04:40 Lactate Dehydrogenase 540 U/L (313-618) 02/05/18 05:30 Troponin I 0.0740 ng/mL (0.00-0.120) 02/01/18 05:46 Total Protein 5.3 G/DL (6.3-8.2) L 02/08/18 05:55 Albumin 2.1 g/dL (3.5-5.0) L 02/08/18 05:55 Globulin 3.3 gm/dL (2.2-3.9) 02/08/18 05:55 Albumin/Globulin Ratio 0.6 (1.0-2.1) L 02/08/18 05:55 Lipase 272 U/L (23-300) 02/06/18 09:00 Alpha Fetoprotein 1.7 IU/mL (0.0-7.22) 02/09/18 05:00 Fluid Source Peritoneal/ascites 02/04/18 12:45 Fluid Appearance Sl cloudy (CLEAR) 02/04/18 12:45 Fluid WBC 56.0 /mm3 (0.0-300.0) 02/04/18 12:45 Fluid RBC 63.0 /mm3 (0.0-0.0) H 02/04/18 12:45 Fluid Tot Cell Count 100 (0-0) H 02/04/18 12:45 Fluid Neutrophils 41.0 % (0-0) H 02/04/18 12:45 Fluid Lymphocytes 23.0 % (0-0) H 02/04/18 12:45 Fld Monocyte/Macrophag 36 % (0-0) H 02/04/18 12:45 Fluid Glucose 112 mg/dL (NONE ESTABLISHED) 02/04/18 12:45 Fluid Total Protein < 2.0 g/dL (NONE ESTABLISHED) 02/04/18 12:45 Fluid LDH 152 IU (NONE ESTABLISHED) 02/04/18 12:45 Fluid Amylase 32 mg/dL (NONE ESTABLISHED) 02/04/18 12:45 Fluid Triglycerides 28 mg/dL (NONE ESTABLISHED) 02/04/18 12:45 Fluid Comment 02/04/18 12:45 Stool Occult Blood Negative (NEGATIVE) 01/30/18 12:10 Alcohol, Quantitative 57 mg/dl (0-10) H 01/30/18 12:00 Blood Type O POSITIVE 02/01/18 08:42 Antibody Screen Negative 02/01/18 08:42 Crossmatch See Detail 02/01/18 08:42 BBK History Checked Patient has bt 02/01/18 08:42 - Hospital Course Hospital Course: 52 YO with PMHx of ETOH abuse, unwitnessed seizures, cirrhosis (s/p TIPS), hepatic encephalograph is admitted for acute GI bleed requiring multiple blood transfusions and colitis. Admission complicated with generalized edema. Pt is stable per GI, s/p EGD (x2), s/p 8 units of PRBC and 2 units of FFP. Treated for colitis with IV abx per ID. Edema is improving, pt seen by PT/OT recommendation was [facility]. Pt to be d/c to [facility] for de-conditioning, PT/OT. Continue Lasix PO 20mg x 5 more days for edema. Cont Meds: Ferrous Sulfate (Feosol) 325 mg PO DAILY JANNIE Folic Acid (Folic Acid) 1 mg PO DAILY JANNIE Lactic Acid (Lac-Hydrin 12% Cream (140 G) 1 ea TOP DAILY JANNIE Levetiracetam (Keppra) 500 mg PO Q12 JANNIE Nicotine (Nicoderm Cq) 1 patch TD DAILY JANNIE Ondansetron HCl (Zofran Inj) 4 mg IVP Q6 PRN Pantoprazole Sodium (Protonix Ec Tab) 40 mg PO DAILY JANNIE Thiamine HCl (Vitamin B1 Inj) 100 mg IM DAILY JANNIE Tobramycin Sulfate (Tobrex 0.3% Ophth Soln) 2 drop OU Q6 JANNIE Furosemide (Lasix) 20 mg daily x 5 Lactulose (Enulose) 20 gm PO DAILY PRN Discharge Exam - Head Exam Head Exam: NORMAL INSPECTION - Eye Exam Eye Exam: Normal appearance - ENT Exam ENT Exam: Mucous Membranes Moist - Respiratory Exam Respiratory Exam: Decreased Breath Sounds (mild in lower lobes b/l), NORMAL BREATHING PATTERN. absent: Rales, Wheezes - Cardiovascular Exam Cardiovascular Exam: REGULAR RHYTHM, +S1, +S2 - GI/Abdominal Exam GI & Abdominal Exam: Distended, Normal Bowel Sounds. absent: Guarding, Tenderness - Extremities Exam Extremities exam: pedal edema (1+ up to the knees, mild non-pitting edema up to the mid-thigh) - Back Exam Back exam: NORMAL INSPECTION - Neurological Exam Neurological exam: Alert, Oriented x3 - Psychiatric Exam Psychiatric exam: Normal Mood - Skin Skin Exam: Pallor Discharge Plan - Discharge Medications Prescriptions: Furosemide [Lasix] 20 mg PO DAILY #5 tab - Follow Up Plan Condition: FAIR Disposition: REHAB FACILITY/REHAB UNIT Patient education suggested?: Yes Instructions: Gastrointestinal Bleeding
--- NOTE | 2018-02-10 14:44 | CP.PCM.PN ---
Subjective - Date & Time of Evaluation Date of Evaluation: 02/10/18 - Subjective Subjective: GI progress note for Dr. Swartz Objective - Vital Signs/Intake and Output Vital Signs (last 24 hours): Temp Pulse Resp BP Pulse Ox 98.4 F 79 20 120/72 97 02/10/18 07:38 02/10/18 07:38 02/10/18 07:38 02/10/18 09:26 02/10/18 07:38 Intake and Output: 02/10/18 02/10/18 06:59 18:59 Intake Total 400 Output Total 1900 Balance -1500 - Medications Medications: Current Medications Acetaminophen (Tylenol 325mg Tab) 650 mg PO Q6 PRN PRN Reason: Pain, moderate (4-7) Last Admin: 02/10/18 08:25 Dose: 650 mg Ferrous Sulfate (Feosol) 325 mg PO DAILY [facility] Last Admin: 02/10/18 08:27 Dose: 325 mg Folic Acid (Folic Acid) 1 mg PO DAILY JANNIE Last Admin: 02/10/18 08:27 Dose: 1 mg Furosemide (Lasix) 20 mg IVP ONCE ONE Stop: 02/10/18 16:01 Lactic Acid (Lac-Hydrin 12% Cream (140 G)) 1 ea TOP DAILY [facility] Last Admin: 02/10/18 08:35 Dose: 1 applic Lactulose (Enulose) 20 gm PO DAILY PRN PRN Reason: Constipation Levetiracetam (Keppra) 500 mg PO Q12 JANNIE Last Admin: 02/10/18 08:27 Dose: 500 mg Lidocaine (Lidoderm) 1 ea TD DAILY [facility] Last Admin: 02/10/18 08:29 Dose: 1 ea Lorazepam (Ativan) 1 mg IVP STAT PRN PRN Reason: Symptoms of alcohol withdrawl Nicotine (Nicoderm Cq) 1 patch TD DAILY [facility] Last Admin: 02/10/18 08:28 Dose: 1 patch Ondansetron HCl (Zofran Inj) 4 mg IVP Q6 PRN PRN Reason: Nausea/Vomiting Last Admin: 01/30/18 16:34 Dose: 4 mg Pantoprazole Sodium (Protonix Ec Tab) 40 mg PO DAILY JANNIE Last Admin: 02/10/18 08:27 Dose: 40 mg Thiamine HCl (Vitamin B1 Inj) 100 mg IM DAILY JANNIE Last Admin: 02/10/18 08:33 Dose: 100 mg Tobramycin Sulfate (Tobrex 0.3% Ophth Soln) 2 drop OU Q6 JANNIE Last Admin: 02/10/18 09:28 Dose: 2 drop Zolpidem Tartrate (Ambien) 5 mg PO HS PRN PRN Reason: Insomnia Last Admin: 02/09/18 21:06 Dose: 5 mg - Labs Labs: 02/08/18 05:55 02/10/18 06:05 PT 21.2 Seconds (9.8-13.1) H 02/04/18 10:54 INR 1.9 02/04/18 10:54 APTT 28.8 Seconds (25.6-37.1) 01/31/18 21:03
[2018-02-10 15:54] VITALS: BP 119/78; PULSE 87; TEMP 98.6
== END 2018-02-10 19:10 | DRG 174 ==
LOC: H.ER 10:24 → H.ERHOLD 13:09 → H.ICU/CCU 14:52 → H.MEDSURG1 02-04 15:27
PROVIDERS: ADMIT Family Medicine; ATTEND Family Medicine
PROC: 30233N1 Transfusion of Nonautologous Red Blood Cells into Peripheral Vein, Percutaneous Approach (ICD-10-PCS; 2018-01-30)
PROC: 0DJ08ZZ Inspection of Upper Intestinal Tract, Via Natural or Artificial Opening Endoscopic (ICD-10-PCS; 2018-01-31)
PROC: 30233K1 Transfusion of Nonautologous Frozen Plasma into Peripheral Vein, Percutaneous Approach (ICD-10-PCS; 2018-01-31)
PROC: 0W9G3ZZ Drainage of Peritoneal Cavity, Percutaneous Approach (ICD-10-PCS; 2018-02-04)
PROC: 0DB68ZX Excision of Stomach, Via Natural or Artificial Opening Endoscopic, Diagnostic (ICD-10-PCS; principal; 2018-02-04 08:30)
DX: K29.81 Duodenitis with bleeding (principal); K70.31 Alcoholic cirrhosis of liver with ascites; I85.11 Secondary esophageal varices with bleeding; D62 Acute posthemorrhagic anemia; F10.239 Alcohol dependence with withdrawal, unspecified; D61.818 Other pancytopenia; J98.11 Atelectasis; J90 Pleural effusion, not elsewhere classified; K29.21 Alcoholic gastritis with bleeding; K70.40 Alcoholic hepatic failure without coma; F10.229 Alcohol dependence with intoxication, unspecified; K22.10 Ulcer of esophagus without bleeding; K26.9 Duodenal ulcer, unspecified as acute or chronic, without hemorrhage or perforation; E88.09 Other disorders of plasma-protein metabolism, not elsewhere classified; G89.29 Other chronic pain; I86.4 Gastric varices; G40.909 Epilepsy, unspecified, not intractable, without status epilepticus; F41.9 Anxiety disorder, unspecified; K52.9 Noninfective gastroenteritis and colitis, unspecified; N50.89 Other specified disorders of the male genital organs; Y90.2 Blood alcohol level of 40-59 mg/100 ml; F17.210 Nicotine dependence, cigarettes, uncomplicated; H57.12 Ocular pain, left eye; R29.6 Repeated falls; Z87.11 Personal history of peptic ulcer disease; Z79.899 Other long term (current) drug therapy; Z87.19 Personal history of other diseases of the digestive system; Z88.6 Allergy status to analgesic agent; Z87.81 Personal history of (healed) traumatic fracture

== ENCOUNTER 2018-02-12 22:00 | Observation (INO) | payer MEDICAID ==
[2018-02-12 22:01] VITALS: BMI 23.7
[2018-02-12 23:13] LABS: BASO % 1.1 % (0.0-2.0); EOS # 0.2 K/uL (0.0-0.7); EOS % 3.4 % (0.0-4.0); HEMOGLOBIN 8.9 g/dL (12.0-18.0); LYMPH # 0.7 K/uL (1.0-4.3); LYMPH % 16.3 % (20.0-40.0); MEAN CELL VOLUME 91.1 fl (80.0-94.0); MEAN CORPUSCULAR HEMOGLOBIN 28.9 pg (27.0-31.0); MEAN CORPUSCULAR HGB CONC 31.7 g/dL (33.0-37.0); MEAN PLATELET VOLUME 6.9 fl (7.2-11.7); MONO # 0.6 K/uL (0.0-0.8); MONO % 12.6 % (0.0-10.0); NEUT % 66.6 % (50.0-75.0); NRBC % 0.1 % (0.0-0.0); RBC 3.08 Mil/uL (4.40-5.90); WHITE BLOOD COUNT 4.5 K/uL (4.8-10.8)
--- NOTE | 2018-02-12 23:15 | ED PDOC ---
Addendum entered and electronically signed by Justo Chou MD 02/13/18 06:38 : Disposition Clinical Impression: Malingerer [conscious simulation], Alcohol abuse, Thigh pain, SOB (shortness of breath) Disposition: HOSPITALIZED Disposition Time: 04:38 Condition: STABLE Original Note: HPI: SOB/CHF/COPD <Justo Chou - Last Filed: 02/13/18 06:34> <Cathy Salazar - Last Filed: 02/14/18 19:38> Time Seen by Provider: 02/12/18 22:23 Chief Complaint (Nursing): Shortness Of Breath Additional Complaint(s): 52 YO M w/ PMH of ETOH abuse, unwitnessed seizures, cirrhosis (s/p TIPS, GI bleeds) who was recently discharged on 02/10/18 to [facility] at [facility] presents today with B/L thigh pain and SOB. At triage patient had complained of a seizure however while being interviewed the writer producer the patient denies it. Patient is well known to the ER and the writer producer to be bed seeking. Patient started requesting for food and a sandwich during the interview. - As per patient he left [facility] ([facility]) on 02/11/18, because he had to bury his sister today. States after buring his sister he went and had some steak and started having worsening pain is thigh's and was "carried" by his brother. However nursing staff saw patient walking in without any difficulty. - Patient also complains of some difficulty breathing over the last day. Denies any chest pain, palpitation, Nausea, Vomiting, Diarrhea, dizziness. He had a bowl movement today, with normal consistency. PMD: PRC PMHx: etoh use disorder, liver cirrhosis, esophageal ulcers PSHx: TIPs in 2015 Social hx: smoker; 3 cigarettes a day, 1.5 ppd previously, etoh denies abuse but level 82 Family hx: father [place], mother smoker and of lung cancer, sister diagnosed with colon cancer Home Meds: Keppra 500mg BID Allergies: asprin, ibuprofen, naproxen, NSAIDs (nausea for all of them) Next of Kin: Missy Pineda Code status: full code (Justo Chou) Supervising Attending Note - Supervising Attending Note The Documented history was done by the: Physician Sand Slinger Operator, Attending Physician The documented physical exam was done by the: Physician Sand Slinger Operator, Attending Physician The documented procedures were done by the: Physician Sand Slinger Operator, Attending Physician - Attestation: I have personally seen and examined this patient.: Yes I have fully participated in the care of the patient.: Yes I have reviewed all pertinent clinical information, including history, physical exam and plan: Yes <Cathy Salazar - Last Filed: 02/14/18 19:38> Past Medical History - Medical History PMH: Anemia, Anxiety, Back Problems (herniated disc), Deep Vein Thrombosis, Fractures (rib fx, left shoulder, Left hand 5th digit, Humerus fracture), Gastritis, Seizures, Chronic Pain (left shoulder) Denies: CHF, HIV, Hypercholesterolemia, Chronic Kidney Disease, Sexually Transmitted Disease - Surgical History Surgical History: Endoscopy - Family History Family History: States: Unknown Family Hx - Immunization History Hx Tetanus Toxoid Vaccination: Yes Hx Influenza Vaccination: Yes Hx Pneumococcal Vaccination: Yes <Justo Chou - Last Filed: 02/13/18 06:34> Reviewed: Historical Data, Nursing Documentation, Vital Signs <Cathy Salazar - Last Filed: 02/14/18 19:38> Vital Signs: Last Vital Signs Temp 98.0 F 02/14/18 09:00 Pulse 82 02/14/18 09:00 Resp 19 02/14/18 09:00 BP 113/67 02/14/18 09:00 Pulse Ox 96 02/14/18 09:00 - Home Medications Home Medications: Ambulatory Orders Medication Instructions Recorded levETIRAcetam [Keppra] 500 mg PO Q12H 10/25/17 Folic Acid 1 mg PO DAILY #30 tab 11/25/17 Thiamine [Vitamin B1 Tab] 100 mg PO DAILY #30 tab 11/25/17 Acetaminophen [Tylenol 325mg tab] 650 mg PO Q6 PRN tab 02/10/18 Ferrous Sulfate [Feosol] 325 mg PO DAILY tab 02/10/18 Furosemide [Lasix] 20 mg PO DAILY #5 tab 02/10/18 Lactulose [Enulose] 20 gm PO DAILY PRN udc 02/10/18 Pantoprazole [Protonix EC Tab] 40 mg PO DAILY ect 02/10/18 - Allergies Allergies/Adverse Reactions: Allergies Allergy/AdvReac Type Severity Reaction Status Date / Time aspirin Allergy NAUSEA Verified 01/27/18 13:24 ibuprofen [From Motrin] Allergy NAUSEA Verified 01/27/18 13:24 naproxen Allergy RASH Verified 01/27/18 13:24 NSAIDS (Non-Steroidal Allergy NAUSEA Verified 01/27/18 13:24 Anti-Inflamma Wells Criteria for PE - Wells Criteria for Pulmonary Embolism Clinical Signs and Symptoms of DVT: No P.E is #1 Diagnosis, or Equally Likely: No Heart Rate >100: No Immobilization at least 3 days;Surgery previous 4 weeks: No Previous, objectively diagnosed PE or DVT: No Hemoptysis: No Malignancy w/treatment within 6 months, or palliative: No Total Score: 0 <Justo Chou - Last Filed: 02/13/18 06:34> Review of Systems ROS Statement: Except As Marked, All Systems Reviewed And Found Negative <Cathy Salazar - Last Filed: 02/14/18 19:38> Physical Exam - Physical Exam Appears: Positive for: No Acute Distress Head Exam: Positive for: NORMAL INSPECTION ENT: Positive for: Normal ENT Inspection Respiratory: Positive for: Decreased Breath Sounds (at bases b/l). Negative for : Rhonchi, Wheezing Gastrointestinal/Abdominal: Positive for: Normal Exam, Bowel Sounds, Soft. Negative for: Tenderness Back: Positive for: Normal Inspection Extremity: Positive for: Tenderness (tenderness over thigh b/l (chronic)), Pedal Edema (1+ B/L) Neurologic/Psych: Positive for: Alert, electrician underground II-XII, Oriented, Mood/Affect. Negative for: Facial Droop <Justo Chou - Last Filed: 02/13/18 06:34> - Reviewed Nursing Documentation Reviewed: Yes Vital Signs Reviewed: Yes - Physical Exam Appears: Positive for: Non-toxic Head Exam: Positive for: ATRAUMATIC Skin: Positive for: Normal Color, Warm, Dry Neck: Positive for: Painless ROM, Supple Cardiovascular/Chest: Positive for: Regular Rate, Rhythm. Negative for: Tachycardia <Cathy Salazar - Last Filed: 02/14/18 19:38> - Laboratory Results Result Diagrams: 02/12/18 23:04 02/12/18 23:04 - ECG ECG: Positive for: Interpreted By Me (No ischemic changes. No changes compared to baseline) O2 Sat by Pulse Oximetry: 99 - Radiology X-Ray: Interpreted by Ut X-Ray Interpretation: No Acute Disease - Progress Re-evaluation Time: 03:49 Condition: Re-examined (Comfortably sleeping. In no acute distress) <Justo Chou - Last Filed: 02/13/18 06:34> - Laboratory Results Result Diagrams: 02/14/18 05:20 02/12/18 23:04 <Cathy Salazar - Last Filed: 02/14/18 19:38> - Progress ED Course And Treament: CBC: Hb: 8.9, Platelet:116, MCV: Stable compared to discharge 2 days ago. CMP: : Similar to baseline Type and screen Chest X ray U/A: Alcohol serum:82 (Justo Chou) Disposition - Patient ED Disposition Is Patient to be Admitted: No - Disposition Disposition: Routine/Home Disposition Time: 04:38 <Justo Chou - Last Filed: 02/13/18 06:34> - Patient ED Disposition Is Patient to be Admitted: Yes Discussed With : Melanie Page Doctor Will See Patient In The: ED Counseled Patient/Family Regarding: Studies Performed, Diagnosis - Pt Status Changed To: Hospital Disposition Of: Observation - POA Present On Arrival: None <Cathy Salazar - Last Filed: 02/14/18 19:38> - Clinical Impression Clinical Impression: Malingerer [conscious simulation], Alcohol abuse, Thigh pain, SOB (shortness of breath), Anemia - Disposition Condition: FAIR
[2018-02-12 23:31] LABS: ALB/GLOB RATIO 0.7 (1.0-2.1); ALBUMIN 2.6 g/dL (3.5-5.0); ALT/SGPT 42 U/L (21-72); AST/SGOT 78 U/L (17-59); BLOOD UREA NITROGEN 10 mg/dl (9-20); GFR NON-AFRICAN AMERICAN > 60
[2018-02-13 00:15] LABS: URINE BACTERIA RARE (<OCC); URINE BILIRUBIN NEGATIVE (NEGATIVE); URINE BLOOD NEGATIVE (NEGATIVE); URINE CLARITY SLIGHTY-CLOUDY (Clear); URINE COLOR YELLOW (YELLOW); URINE GLUCOSE (UA) NEG (Normal); URINE LEUKOCYTE ESTERASE NEG Leu/uL (Negative); URINE PROTEIN NEGATIVE (NEGATIVE); URINE UROBILINOGEN 0.2-1.0 mg/dL (0.2-1.0)
[2018-02-13 00:52] LABS: BARBITURATES, UR NEGATIVE (NEGATIVE); BENZODIAZEPINES, UR NEGATIVE (NEGATIVE); OPIATES, UR NEGATIVE (NEGATIVE); PHENCYCLIDINE, UR NEGATIVE (NEGATIVE)
[2018-02-13 05:18] LABS: MEAN CELL VOLUME 88.8 fl (80.0-94.0); MEAN CORPUSCULAR HEMOGLOBIN 28.9 pg (27.0-31.0); MEAN CORPUSCULAR HGB CONC 32.5 g/dL (33.0-37.0); RBC 2.61 Mil/uL (4.40-5.90); RED CELL DISTRIBUTION WIDTH 22.6 % (11.5-14.5); WHITE BLOOD COUNT 3.7 K/uL (4.8-10.8)
[2018-02-13 05:20] LABS: HEMOGLOBIN 7.6 g/dL (12.0-18.0)
[2018-02-13 06:16] LABS: HEMOGLOBIN 7.7 g/dL (12.0-18.0); MEAN CELL VOLUME 88.2 fl (80.0-94.0); MEAN CORPUSCULAR HGB CONC 32.8 g/dL (33.0-37.0); RBC 2.65 Mil/uL (4.40-5.90); RED CELL DISTRIBUTION WIDTH 22.5 % (11.5-14.5); WHITE BLOOD COUNT 3.9 K/uL (4.8-10.8)
--- NOTE | 2018-02-13 06:45 | CP.PCM.HP ---
History of Present Illness - History of Present Illness History of Present Illness: CC: shortness of breath and b/l thigh pain HPI: 52 YO with PMHx of ETOH abuse, unwitnessed seizures, cirrhosis (s/p TIPS), hx of hepatic encephalograph is seen [facility] ED for dyspnea and b/l thigh pain. Pt states that he has had the pain after being discharged from the hospital, "the fluid is making it hurt." He states that he was at his sister's yesterday (02/12) and after the service he went to eat steak, when he was coming out he felt weak and his friend walked him to the hospital. Pt states that his dyspnea resolved at this time, and his thigh pain is improving but he continues to feel weak in his legs. Pt states that earlier today, his pain was zeynep bad that he needed to be carried to the ER by his friend. Last BM 02/12, brown color , normal consistency, no blood. Denies chest pain, palpitations, n/v/d/c, abdominal pain, fever, chills. Of note, pt was seen by the ER nurse to walking by himself without any difficulties. Additionally, pt was d/c from the hospital on 02/10 to [facility], he states that he does not like the rehab. PMD: none PMHx: etoh use disorder, liver cirrhosis, esophageal ulcers Surgical hx: TIPs in 2014 PHos hx: multiple ED visits, etoh abuse, unwitnessed seizures and rib fracture Social hx: smoker; 3 cigarettes a day, 1.5 ppd previously, etoh denies abuse but level 57 Family hx: father [place], mother smoker and of lung cancer, sister diagnosed with colon cancer Allergies: asprin, ibuprofen, naproxen, NSAIDs (nausea for all of them) Next of Kin: [facility] [phone] Code status: full code ED Course: VS: T 98.2 HR 98 BP 114/65, RR 18, O2 99% RA Labs: CBC 3.9>7.7/23.3<101 CMP: 139/3.9, 115/19, 10/0.6 <108, Tbil 1.4, alk phos 194, ammonia 17 UA neg Utox ETOH 82 Imaging: CXR no acute disease noted (as read by me) EKG no acute ST changes, NSR QTc prolonged Meds: protonix 40mg IVP Present on Admission - Present on Admission Any Indicators Present on Admission: No Review of Systems - Constitutional Constitutional: absent: Chills, Fever, Night Sweats - Cardiovascular Cardiovascular: Dyspnea (resolved now). absent: Chest Pain - Respiratory Respiratory: absent: Cough - Gastrointestinal Gastrointestinal: absent: Abdominal Pain, Coffee Ground Emesis, Constipation, Diarrhea, Hematemesis, Hematochezia - Genitourinary Genitourinary: absent: Difficulty Urinating, Dysuria - Musculoskeletal Additional comments: thigh pain b/l - Neurological Neurological: absent: Dizziness, Numbness, Headaches Past Patient History - Infectious Disease Hx of Infectious Diseases: None - Tetanus Immunizations Tetanus Immunization: Unknown - Past Medical History & Family History Past Medical History?: Yes - Past Social History Smoking Status: Heavy Smoker > 10 Cigarettes Daily Alcohol: > 2 Drinks/Day Drugs: Denies - CARDIAC Hx Congestive Heart Failure: No Hx Hypercholesterolemia: No - NEUROLOGICAL Hx Seizures: Yes - HEENT Hx HEENT Problems: No - RENAL Hx Chronic Kidney Disease: No - ENDOCRINE/METABOLIC Hx Endocrine Disorders: No - HEMATOLOGICAL/ONCOLOGICAL Hx Anemia: Yes Hx Human Immunodeficiency Virus (HIV): No - INTEGUMENTARY Hx Dermatological Problems: No - MUSCULOSKELETAL/RHEUMATOLOGICAL Hx Fractures: Yes (rib fx, left shoulder, Left hand 5th digit, Humerus fracture) - GASTROINTESTINAL Hx Gastritis: Yes - GENITOURINARY/GYNECOLOGICAL Hx Sexually Transmitted Disorders: No - PSYCHIATRIC Hx Anxiety: Yes - SURGICAL HISTORY Other/Comment: "LEFT FINGER SURGERY" - ANESTHESIA Hx Anesthesia: Yes Hx Anesthesia Reactions: No Hx Malignant Hyperthermia: No Meds Allergies/Adverse Reactions: Allergies Allergy/AdvReac Type Severity Reaction Status Date / Time aspirin Allergy NAUSEA Verified 01/27/18 13:24 ibuprofen [From Motrin] Allergy NAUSEA Verified 01/27/18 13:24 naproxen Allergy RASH Verified 01/27/18 13:24 NSAIDS (Non-Steroidal Allergy NAUSEA Verified 01/27/18 13:24 Anti-Inflamma Physical Exam - Constitutional Appears: No Acute Distress - Head Exam Head Exam: NORMAL INSPECTION - Eye Exam Eye Exam: Normal appearance - ENT Exam ENT Exam: Mucous Membranes Moist - Respiratory Exam Respiratory Exam: Clear to Auscultation Bilateral, NORMAL BREATHING PATTERN. absent: Wheezes - Cardiovascular Exam Cardiovascular Exam: REGULAR RHYTHM, +S1, +S2 - GI/Abdominal Exam GI & Abdominal Exam: Distended (mild), Firm (mild ), Normal Bowel Sounds, Soft. absent: Guarding, Rebound, Tenderness Additional comments: +fluid wave appreciated - Exam Exam: Circumcision. absent: Scrotal Swelling - Extremities Exam Extremities exam: Positive for: pedal edema (1+ pitting edema up to the knee b/l , edema up to the mid thigh ). Negative for: calf tenderness - Back Exam Back exam: NORMAL INSPECTION. absent: CVA tenderness (L), CVA tenderness (R) - Neurological Exam Neurological exam: Alert, Oriented x3 - Skin Skin Exam: Pallor Results - Vital Signs Recent Vital Signs: Last Vital Signs Temp 98.2 F 02/12/18 22:11 Pulse 98 H 02/12/18 22:11 Resp 24 02/12/18 22:11 BP 114/65 02/12/18 22:11 Pulse Ox 99 02/13/18 04:52 - Labs Result Diagrams: 02/13/18 06:09 02/12/18 23:04 Labs: Laboratory Results - last 24 hr 02/12/18 02/12/18 02/12/18 23:04 23:04 23:04 WBC 4.5 L RBC 3.08 L Hgb 8.9 L Hct 28.1 L MCV 91.1 D MCH 28.9 MCHC 31.7 L RDW 23.0 H Plt Count 116 L D MPV 6.9 L Neut % (Auto) 66.6 Lymph % (Auto) 16.3 L [place] % (Auto) 12.6 H Eos % (Auto) 3.4 Baso % (Auto) 1.1 Neut # (Auto) 3.0 Lymph # (Auto) 0.7 L [place] # (Auto) 0.6 Eos # (Auto) 0.2 Baso # (Auto) 0.0 Sodium 139 Potassium 3.9 Chloride 115 H Carbon Dioxide 19 L Anion Gap 9 L BUN 10 Creatinine 0.6 L Est GFR ( Amer) > 60 Est GFR (Non-Af Amer) > 60 Random Glucose 108 Calcium 8.0 L Total Bilirubin 1.4 H AST 78 H ALT 42 Alkaline Phosphatase 194 H D Ammonia Troponin I < 0.0120 Total Protein 6.3 Albumin 2.6 L D Globulin 3.7 Albumin/Globulin Ratio 0.7 L Urine Color Urine Clarity Urine pH Ur Specific [place] Urine Protein Urine Glucose (UA) Urine Ketones Urine Blood Urine Nitrate Urine Bilirubin Urine Urobilinogen Ur Leukocyte Esterase Urine RBC (Auto) Urine Microscopic WBC Urine Bacteria Urine Opiates Screen Urine Methadone Screen Ur Barbiturates Screen Ur Phencyclidine Scrn Ur Amphetamines Screen U Benzodiazepines Scrn U Oth Cocaine Metabols U Cannabinoids Screen Alcohol, Quantitative 82 H Blood Type O POSITIVE Antibody Screen Negative BBK History Checked Patient has bt 02/12/18 02/12/18 02/12/18 23:18 23:59 23:59 WBC RBC Hgb Hct MCV MCH MCHC RDW Plt Count MPV Neut % (Auto) Lymph % (Auto) [place] % (Auto) Eos % (Auto) Baso % (Auto) Neut # (Auto) Lymph # (Auto) [place] # (Auto) Eos # (Auto) Baso # (Auto) Sodium Potassium Chloride Carbon Dioxide Anion Gap BUN Creatinine Est GFR ( Amer) Est GFR (Non-Af Amer) Random Glucose Calcium Total Bilirubin AST ALT Alkaline Phosphatase Ammonia 17 D Troponin I Total Protein Albumin Globulin Albumin/Globulin Ratio Urine Color Yellow Urine Clarity Slighty-cloudy Urine pH 6.0 Ur Specific [place] 1.016 Urine Protein Negative Urine Glucose (UA) Neg Urine Ketones Negative Urine Blood Negative Urine Nitrate Negative Urine Bilirubin Negative Urine Urobilinogen 0.2-1.0 Ur Leukocyte Esterase Neg Urine RBC (Auto) 2 Urine Microscopic WBC < 1 Urine Bacteria Rare Urine Opiates Screen Negative Urine Methadone Screen Negative Ur Barbiturates Screen Negative Ur Phencyclidine Scrn Negative Ur Amphetamines Screen Negative U Benzodiazepines Scrn Negative U Oth Cocaine Metabols Negative U Cannabinoids Screen Negative Alcohol, Quantitative Blood Type Antibody Screen BBK History Checked 02/13/18 02/13/18 05:10 06:09 WBC 3.7 L 3.9 L RBC 2.61 L 2.65 L Hgb 7.6 L 7.7 L Hct 23.2 L 23.3 L MCV 88.8 D 88.2 MCH 28.9 29.0 MCHC 32.5 L 32.8 L RDW 22.6 H 22.5 H Plt Count 108 L 101 L MPV Neut % (Auto) Lymph % (Auto) [place] % (Auto) Eos % (Auto) Baso % (Auto) Neut # (Auto) Lymph # (Auto) [place] # (Auto) Eos # (Auto) Baso # (Auto) Sodium Potassium Chloride Carbon Dioxide Anion Gap BUN Creatinine Est GFR ( Amer) Est GFR (Non-Af Amer) Random Glucose Calcium Total Bilirubin AST ALT Alkaline Phosphatase Ammonia Troponin I Total Protein Albumin Globulin Albumin/Globulin Ratio Urine Color Urine Clarity Urine pH Ur Specific [place] Urine Protein Urine Glucose (UA) Urine Ketones Urine Blood Urine Nitrate Urine Bilirubin Urine Urobilinogen Ur Leukocyte Esterase Urine RBC (Auto) Urine Microscopic WBC Urine Bacteria Urine Opiates Screen Urine Methadone Screen Ur Barbiturates Screen Ur Phencyclidine Scrn Ur Amphetamines Screen U Benzodiazepines Scrn U Oth Cocaine Metabols U Cannabinoids Screen Alcohol, Quantitative Blood Type Antibody Screen BBK History Checked Assessment & Plan - Assessment and Plan (Free Text) Assessment: Assessment/plan: 52 YO with PMHx of ETOH abuse, unwitnessed seizures, cirrhosis (s/p TIPS), hepatic encephalograph is admitted for acute asymptomatic anemia. Normocytic anemia -asymptomatic, chronic -likely anemia of chronic disease with iron deficiency -Iron 14 02/06/18. s/p 1 unit of IV venofer -hb on d/c was 8.0, hb today 7.7 -EGD 02/04: non-bleeding gastric ulcer, non-bleeding doudenal ulcer. Path sig for mild chronic gastritis, no H pylori -Colonoscopy (06/2017) Poor prep, internal/external hemorrhoids -s/p 8 units of PRBC transfusion last admission -No acute GI bleeding -FOBT pending -cont PO iron -consider transfusion if symptomatic Edema, Ascites -resolving -likely 2/2 to cirrhosis, hypoalbuminemia -Abdomen u/s 02/03: intra-abdominal and pelvic ascites -s/p 12.5gm of albumin 02/04 -daily weights and strict I/O -Tylenol for pain prn -will cont PO lasix Cirrhosis -chronic -likely 2/2 to chronic ETOH abuse -MELD score: 14, 6% 3 month mortality -Child-Squires score: 9, Class B, abdominal surgery sharad-operative mortality 30% ETOH abuse -UDS ETOH 82 -CIWA 1 -CIWA protocol, ativan for CIWA >8 -ativan prn Prolong QTc -EKG sig for normal sinus, no acute ST and T wave changes 02/13 with QTc 480 -chronic, 01/30/18 QTc 482 -cont to monitor Grade II esophageal Varices -stable -EGD 01/31/18: grade II esophageal varices at lower 1/3 -s/p TIPS procedure in the past -Seen by GI last admission, no need for a beta shae given hx of TIPS Pancytopenia -chronic, stable -likely 2/2 to live failure vs bone marrow suppression 2/2 to etoh abuse/liver failure -cont to monitor Hx of Seizures -Keppra 500 IV PO Deconditioning -PT on board -low ext weakness DVT prophylaxis -SCDs
[2018-02-13 07:21] LABS: INR 1.8; PROTHROMBIN TIME 20.3 Seconds (9.8-13.1)
[2018-02-13 07:24] LABS: PARTIAL THROMBOPLASTIN TIME 49.9 Seconds (25.6-37.1)
[2018-02-13] MEDS ORDERED: Enoxaparin 40 mg Syringe SC SCH (09:00)
[2018-02-13] MEDS ORDERED: Pantoprazole 40 mg EC Tab PO ONE (09:58)
[2018-02-13] MEDS: Pantoprazole 40 mg EC Tab PO SCH (10:03)
--- NOTE | 2018-02-13 10:07 | RAD ---
Date of service: 02/12/2018 HISTORY: sob COMPARISON: Comparison chest dated 01/30/2018 FINDINGS: LUNGS: Poor inspiration with low lung volumes, crowded bronchovascular markings and mild bibasilar atelectasis. PLEURA: No effusion or apparent pneumothorax CARDIOVASCULAR: Heart size within range of normal. OSSEOUS STRUCTURES: No significant abnormalities. VISUALIZED UPPER ABDOMEN: Normal. OTHER FINDINGS: None. IMPRESSION: Poor inspiration with low lung volumes, crowded bronchovascular markings and mild bibasilar atelectasis.
--- NOTE | 2018-02-13 12:07 | CARD ---
APPROVED REPORT Date of service: 02/12/2018 <Conclusion> Normal sinus rhythm Prolonged QT Abnormal ECG
--- NOTE | 2018-02-13 17:03 | CP.PCM.PCO ---
Assessment/Plan - Assessment and Plan (Free Text) Assessment: Patient seen and evaluated with Dr. Curry. Patient's SOB and leg pain improved. Still has lower extremity edema. HGB in ED 7.7 Vitals and labs reviewed. Consent for transfusion obtained, Will transfuse 1 unit PRBC today. Cirrhosis: MELD score: 14, 6% 3 month mortality, Child-Squires score: 9, Class B, abdominal surgery sharad-operative mortality 30% ETOH abuse: UDS ETOH 82, CIWA 1, CIWA protocol, ativan for CIWA >8 Continue with current medications. Lovenox on hold SCDs for now.
[2018-02-14 06:22] LABS: BASO % 0.9 % (0.0-2.0); EOS # 0.2 K/uL (0.0-0.7); EOS % 5.4 % (0.0-4.0); HEMOGLOBIN 8.2 g/dL (12.0-18.0); LYMPH # 0.8 K/uL (1.0-4.3); LYMPH % 22.8 % (20.0-40.0); MEAN CELL VOLUME 88.1 fl (80.0-94.0); MEAN CORPUSCULAR HEMOGLOBIN 29.2 pg (27.0-31.0); MEAN CORPUSCULAR HGB CONC 33.1 g/dL (33.0-37.0); MEAN PLATELET VOLUME 6.8 fl (7.2-11.7); MONO # 0.4 K/uL (0.0-0.8); MONO % 12.8 % (0.0-10.0); NEUT % 58.1 % (50.0-75.0); RBC 2.82 Mil/uL (4.40-5.90); RED CELL DISTRIBUTION WIDTH 21.7 % (11.5-14.5); WHITE BLOOD COUNT 3.4 K/uL (4.8-10.8)
[2018-02-14 08:10] VITALS: BP 113/67; PULSE 82; RESP 19; TEMP 98; O2SAT 96
[2018-02-14] MEDS: Pantoprazole 40 mg EC Tab PO SCH (08:58)
--- NOTE | 2018-02-14 14:19 | CP.PCM.DIS ---
Provider - Provider Date of Admission: 02/13/18 06:15 Attending physician: Chanelle Rowe MD Time Spent in preparation of Discharge (in minutes): 15 Diagnosis - Discharge Diagnosis (1) Anemia Status: Acute (2) Ascites Status: Chronic (3) Cirrhosis Status: Chronic (4) ETOH abuse Status: Chronic Hospital Course - Lab Results Lab Results: Most Recent Lab Values WBC 3.4 K/uL (4.8-10.8) L 02/14/18 05:20 RBC 2.82 Mil/uL (4.40-5.90) L 02/14/18 05:20 Hgb 8.2 g/dL (12.0-18.0) L 02/14/18 05:20 Hct 24.9 % (35.0-51.0) L 02/14/18 05:20 MCV 88.1 fl (80.0-94.0) 02/14/18 05:20 MCH 29.2 pg (27.0-31.0) 02/14/18 05:20 MCHC 33.1 g/dL (33.0-37.0) 02/14/18 05:20 RDW 21.7 % (11.5-14.5) H 02/14/18 05:20 Plt Count 108 K/uL (130-400) L 02/14/18 05:20 MPV 6.8 fl (7.2-11.7) L 02/14/18 05:20 Neut % (Auto) 58.1 % (50.0-75.0) 02/14/18 05:20 Lymph % (Auto) 22.8 % (20.0-40.0) 02/14/18 05:20 [place] % (Auto) 12.8 % (0.0-10.0) H 02/14/18 05:20 Eos % (Auto) 5.4 % (0.0-4.0) H 02/14/18 05:20 Baso % (Auto) 0.9 % (0.0-2.0) 02/14/18 05:20 Neut # (Auto) 2.0 K/uL (1.8-7.0) 02/14/18 05:20 Lymph # (Auto) 0.8 K/uL (1.0-4.3) L 02/14/18 05:20 [place] # (Auto) 0.4 K/uL (0.0-0.8) 02/14/18 05:20 Eos # (Auto) 0.2 K/uL (0.0-0.7) 02/14/18 05:20 Baso # (Auto) 0.0 K/uL (0.0-0.2) 02/14/18 05:20 PT 20.3 Seconds (9.8-13.1) H 02/13/18 07:02 INR 1.8 02/13/18 07:02 APTT 49.9 Seconds (25.6-37.1) H 02/13/18 07:02 Sodium 139 mmol/l (132-148) 02/12/18 23:04 Potassium 3.9 MMOL/L (3.6-5.0) 02/12/18 23:04 Chloride 115 mmol/L (98-107) H 02/12/18 23:04 Carbon Dioxide 19 mmol/L (22-30) L 02/12/18 23:04 Anion Gap 9 (10-20) L 02/12/18 23:04 BUN 10 mg/dl (9-20) 02/12/18 23:04 Creatinine 0.6 mg/dl (0.8-1.5) L 02/12/18 23:04 Est GFR ( Amer) > 60 02/12/18 23:04 Est GFR (Non-Af Amer) > 60 02/12/18 23:04 Random Glucose 108 mg/dL (75-110) 02/12/18 23:04 Calcium 8.0 mg/dL (8.4-10.2) L 02/12/18 23:04 Total Bilirubin 1.4 mg/dl (0.2-1.3) H 02/12/18 23:04 AST 78 U/L (17-59) H 02/12/18 23:04 ALT 42 U/L (21-72) 02/12/18 23:04 Alkaline Phosphatase 194 U/L (38-126) H D 02/12/18 23:04 Ammonia 17 umo/L (16-60) D 02/12/18 23:18 Troponin I < 0.0120 ng/mL (0.00-0.120) 02/12/18 23:04 Total Protein 6.3 G/DL (6.3-8.2) 02/12/18 23:04 Albumin 2.6 g/dL (3.5-5.0) L D 02/12/18 23:04 Globulin 3.7 gm/dL (2.2-3.9) 02/12/18 23:04 Albumin/Globulin Ratio 0.7 (1.0-2.1) L 02/12/18 23:04 Urine Color Yellow (YELLOW) 02/12/18 23:59 Urine Clarity Slighty-cloudy (Clear) 02/12/18 23:59 Urine pH 6.0 (5.0-8.0) 02/12/18 23:59 Ur Specific [place] 1.016 (1.003-1.030) 02/12/18 23:59 Urine Protein Negative mg/dL (NEGATIVE) 02/12/18 23:59 Urine Glucose (UA) Neg mg/dL (Normal) 02/12/18 23:59 Urine Ketones Negative mg/dL (NEGATIVE) 02/12/18 23:59 Urine Blood Negative (NEGATIVE) 02/12/18 23:59 Urine Nitrate Negative (NEGATIVE) 02/12/18 23:59 Urine Bilirubin Negative (NEGATIVE) 02/12/18 23:59 Urine Urobilinogen 0.2-1.0 mg/dL (0.2-1.0) 02/12/18 23:59 Ur Leukocyte Esterase Neg [place]/uL (Negative) 02/12/18 23:59 Urine RBC (Auto) 2 /hpf (0-3) 02/12/18 23:59 Urine Microscopic WBC < 1 /hpf (0-5) 02/12/18 23:59 Urine Bacteria Rare (<OCC) 02/12/18 23:59 Urine Opiates Screen Negative (NEGATIVE) 02/12/18 23:59 Urine Methadone Screen Negative (NEGATIVE) 02/12/18 23:59 Ur Barbiturates Screen Negative (NEGATIVE) 02/12/18 23:59 Ur Phencyclidine Scrn Negative (NEGATIVE) 02/12/18 23:59 Ur Amphetamines Screen Negative (NEGATIVE) 02/12/18 23:59 U Benzodiazepines Scrn Negative (NEGATIVE) 02/12/18 23:59 U Oth Cocaine Metabols Negative (NEGATIVE) 02/12/18 23:59 U Cannabinoids Screen Negative (NEGATIVE) 02/12/18 23:59 Alcohol, Quantitative 82 mg/dl (0-10) H 02/12/18 23:04 Blood Type O POSITIVE 02/12/18 23:04 Antibody Screen Negative 02/12/18 23:04 Crossmatch See Detail 02/12/18 23:04 BBK History Checked Patient has bt 02/12/18 23:04 - Hospital Course Hospital Course: 52 YO with PMHx of ETOH abuse, unwitnessed seizures, cirrhosis (s/p TIPS), hepatic encephalograph is admitted for shortness of breath and left thigh pain. Patient left [facility] after 1 day after previous admission. In ED vitals stable, EKG no acute changes, CXR no acute disease, ETOH 82, CBC with HGB 7.7. Patient admitted and received 1 PRBC with improvement in HGB. Edema and leg pain is improving. Patient to continue home medications as listed below and follow up at [facility] on February 18 at 2:[address] Salvador Montaño. Discharge Medications New Medications NONE Continue Home medications Ferrous Sulfate (Feosol) 325 mg PO DAILY JANNIE Folic Acid (Folic Acid) 1 mg PO DAILY JANNIE Lactic Acid (Lac-Hydrin 12% Cream (140 G) 1 ea TOP DAILY JANNIE Levetiracetam (Keppra) 500 mg PO Q12 JANNIE Nicotine (Nicoderm Cq) 1 patch TD DAILY JANNIE Ondansetron HCl (Zofran Inj) 4 mg IVP Q6 PRN Pantoprazole Sodium (Protonix Ec Tab) 40 mg PO DAILY JANNIE Thiamine HCl (Vitamin B1 Inj) 100 mg IM DAILY JANNIE Tobramycin Sulfate (Tobrex 0.3% Ophth Soln) 2 drop OU Q6 JANNIE Furosemide (Lasix) 20 mg daily x 5 Lactulose (Enulose) 20 gm PO DAILY PRN Discharge Exam - Head Exam Head Exam: NORMAL INSPECTION - Eye Exam Eye Exam: Normal appearance, PERRL - ENT Exam ENT Exam: Mucous Membranes Moist - Neck Exam Neck exam: Full Rom - Respiratory Exam Respiratory Exam: Clear to PA & Lateral. absent: Rales, Rhonchi, Wheezes, Respiratory Distress - Cardiovascular Exam Cardiovascular Exam: REGULAR RHYTHM, +S1, +S2 - GI/Abdominal Exam GI & Abdominal Exam: Distended, Firm, Normal Bowel Sounds. absent: Guarding, Tenderness - Extremities Exam Extremities exam: pedal edema, tenderness Additional comments: B/L thigh tenderness, No erythema, warmth, cyanosis. + B/L pulse Dorsalis pedes and posterior tibial - Back Exam Back exam: absent: tenderness - Neurological Exam Neurological exam: Alert, Oriented x3 - Psychiatric Exam Psychiatric exam: Normal Affect, Normal Mood - Skin Skin Exam: Dry, Intact, Normal Color Discharge Plan - Follow Up Plan Condition: STABLE Disposition: HOME/ ROUTINE Patient education suggested?: Yes Instructions: Alcohol Abuse and Alcoholism (DC) Additional Instructions: F/U with [facility] on February 18 @2:[address] Salvador Montaño. - If symptoms worsen or reoccur please return to the ER Referrals: [facility] [Outside]
== END 2018-02-14 13:50 | disposition home or self-care (01) ==
LOC: H.ER 22:00 → H.ERHOLD 02-13 06:15 → H.MEDSURG1 02-13 10:25
PROVIDERS: ADMIT Family Medicine Geriatric Medicine; ATTEND Family Medicine Geriatric Medicine
DX: D50.9 Iron deficiency anemia, unspecified (principal); D61.818 Other pancytopenia; D63.8 Anemia in other chronic diseases classified elsewhere; I85.00 Esophageal varices without bleeding; K70.31 Alcoholic cirrhosis of liver with ascites; F10.129 Alcohol abuse with intoxication, unspecified; Y90.4 Blood alcohol level of 80-99 mg/100 ml; K25.9 Gastric ulcer, unspecified as acute or chronic, without hemorrhage or perforation; K29.50 Unspecified chronic gastritis without bleeding; K64.4 Residual hemorrhoidal skin tags; K64.8 Other hemorrhoids; R56.9 Unspecified convulsions; G89.29 Other chronic pain; M25.512 Pain in left shoulder; F41.9 Anxiety disorder, unspecified; Z76.5 Malingerer [conscious simulation]; F17.210 Nicotine dependence, cigarettes, uncomplicated; Z88.6 Allergy status to analgesic agent
CPT/HCPCS: 36415; 36430; 71045; 80053; 80320; 80324; 80345; 80346; 80349; 80353; 80358; 80361; 81003; 82140; 83992; 84484; 85025; 85027; 85610; 85730; 86850; 86900; 86920; 86921; 86922; 93005; 96374; 99285; C9113; G0378; P9051

== ENCOUNTER 2018-02-14 19:12 | Emergency (ER) | payer MEDICAID ==
[2018-02-14 19:12] VITALS: BMI 23.7
[2018-02-14 19:29] VITALS: RESP 18; O2SAT 99
--- NOTE | 2018-02-14 20:22 | ED PDOC ---
Lower Extremity Pain/Injury Time Seen by Provider: 02/14/18 20:06 Chief Complaint (Nursing): Abdominal Pain Chief Complaint (Provider): leg pain History Per: Patient History/Exam Limitations: no limitations Onset/Duration Of Symptoms: Days (10) Current Symptoms Are (Timing): Still Present Additional Complaint(s): 52 y/o male presents for evaluation of bilateral thigh pain x 10 days. Patient states pain secondary due to fluid after receiving "too many IV's" during his hospital stay. Patient states he was discharged earlier today for "low hemoglobin". Denies fever, headache, dizziness, nausea/vomiting, chest pain, shortness of breath, palpitations, abdominal pain, changes in bowel movements, urinary symptoms. Patient requesting sandwich and iced water Past Medical History Reviewed: Historical Data, Nursing Documentation, Vital Signs Vital Signs: Last Vital Signs Temp 98.8 F 02/14/18 19:26 Pulse 98 H 02/14/18 19:26 Resp 18 02/14/18 19:26 BP 134/70 02/14/18 19:26 Pulse Ox 99 02/14/18 19:26 - Medical History PMH: Anemia, Anxiety, Back Problems (herniated disc), Deep Vein Thrombosis, Fractures (rib, left shoulder, left hand 5th digit, humerus), Gastritis, Seizures, Chronic Pain (left shoulder) Denies: CHF, HIV, Hypercholesterolemia, Chronic Kidney Disease, Sexually Transmitted Disease - Surgical History Surgical History: Endoscopy - Family History Family History: States: Unknown Family Hx - Immunization History Hx Tetanus Toxoid Vaccination: Yes Hx Influenza Vaccination: Yes Hx Pneumococcal Vaccination: Yes - Home Medications Home Medications: Ambulatory Orders Medication Instructions Recorded levETIRAcetam [Keppra] 500 mg PO Q12H 10/25/17 Folic Acid 1 mg PO DAILY #30 tab 11/25/17 Thiamine [Vitamin B1 Tab] 100 mg PO DAILY #30 tab 11/25/17 Acetaminophen [Tylenol 325mg tab] 650 mg PO Q6 PRN tab 02/10/18 Ferrous Sulfate [Feosol] 325 mg PO DAILY tab 02/10/18 Furosemide [Lasix] 20 mg PO DAILY #5 tab 02/10/18 Lactulose [Enulose] 20 gm PO DAILY PRN udc 02/10/18 Pantoprazole [Protonix EC Tab] 40 mg PO DAILY ect 02/10/18 - Allergies Allergies/Adverse Reactions: Allergies Allergy/AdvReac Type Severity Reaction Status Date / Time aspirin Allergy NAUSEA Verified 01/27/18 13:24 ibuprofen [From Motrin] Allergy NAUSEA Verified 01/27/18 13:24 naproxen Allergy RASH Verified 01/27/18 13:24 NSAIDS (Non-Steroidal Allergy NAUSEA Verified 01/27/18 13:24 Anti-Inflamma Review of Systems ROS Statement: Except As Marked, All Systems Reviewed And Found Negative Musculoskeletal: Positive for: Leg Pain Physical Exam - Reviewed Nursing Documentation Reviewed: Yes Vital Signs Reviewed: Yes - Physical Exam Appears: Positive for: Well, Non-toxic, No Acute Distress Head Exam: Positive for: ATRAUMATIC, NORMAL INSPECTION, NORMOCEPHALIC Skin: Positive for: Normal Color Eye Exam: Positive for: Normal appearance ENT: Positive for: Normal ENT Inspection Cardiovascular/Chest: Positive for: Regular Rate, Rhythm Respiratory: Positive for: Normal Breath Sounds Gastrointestinal/Abdominal: Positive for: Normal Exam, Bowel Sounds, Soft. Negative for: Tenderness Extremity: Positive for: Normal ROM, Tenderness (tender to palpate b/l anterior thighs; no edema, ecchymosis, temp change noted), Swelling (1+ LE edema b/l) Neurologic/Psych: Positive for: Alert, Oriented (x3) - ECG O2 Sat by Pulse Oximetry: 99 - Progress ED Course And Treament: Hgb 8.2 prior to d/c today Tylenol PO, venous duplex LE EXAM: US Duplex Bilateral Lower Extremity Veins CLINICAL HISTORY: 52 years old, male; Pain; Other: Both legs; Additional info: Leg pain TECHNIQUE: Real-time duplex ultrasound scan of the bilateral lower extremity veins integrating B-mode twodimensional vascular structure, Doppler spectral analysis, color flow Doppler imaging and compression. COMPARISON: No relevant prior studies available. FINDINGS: Right deep veins: Unremarkable. No DVT in the right common femoral, femoral, proximal deep femoral or popliteal veins. The veins demonstrate normal color flow, are normally compressible, with normal phasic flow and/or augmentation response. Left deep veins: Unremarkable. No DVT in the left common femoral, femoral, proximal deep femoral or popliteal veins. The veins demonstrate normal color flow, are normally compressible, with normal phasic flow and/or augmentation response. Soft tissues: No acute findings. No popliteal cyst. IMPRESSION: Normal bilateral lower extremity duplex venous ultrasound. Patient tolerated sandwich and juice in ED. No acute complaints currently Vitals stable Patient educated on findings, discharged with instructions to follow up PMD 2-3 days (patient has appt 02/18) Tylenol PRN pain return precautions given Disposition - Clinical Impression Clinical Impression: Thigh pain - Patient ED Disposition Is Patient to be Admitted: No Counseled Patient/Family Regarding: Studies Performed, Diagnosis, Need For Followup - Disposition Disposition: Routine/Home Disposition Time: 23:09 Condition: STABLE Instructions: Muscle and Bone Pain (DC)
[2018-02-14 22:47] VITALS: BP 110/60; PULSE 94; TEMP 98
--- NOTE | 2018-02-15 08:45 | US ---
Date of service: 02/14/2018 PROCEDURE: Bilateral lower extremity venous duplex Doppler. HISTORY: leg pain COMPARISON: None available. TECHNIQUE: Bilateral common femoral, superficial femoral, popliteal and posterior tibial veins were evaluated. Flow was assessed with color Doppler, compressibility, assessment of phasic flow and augmentation response. FINDINGS: COMMON FEMORAL VEIN: Right CFV: Normal color flow, compressibility and augmentation response. Left CFV: Normal color flow, compressibility and augmentation response. SUPERFICIAL FEMORAL VEIN: Right SFV: Normal color flow, compressibility and augmentation response. Left SFV: Normal color flow, compressibility and augmentation response. POPLITEAL VEIN: Right Popliteal: Normal color flow, compressibility and augmentation response. Left Popliteal: Normal color flow, compressibility and augmentation response. POSTERIOR TIBIAL VEIN: Right PTV: Normal color flow, compressibility and augmentation response. Left PTV: Normal color flow, compressibility and augmentation response. OTHER FINDINGS: None. IMPRESSION: No evidence of deep venous thrombosis.
== END 2018-02-14 23:20 | disposition home or self-care (01) ==
LOC: H.ER 19:12
DX: M79.652 Pain in left thigh (principal); M79.651 Pain in right thigh; G89.29 Other chronic pain; Z86.718 Personal history of other venous thrombosis and embolism; Z88.6 Allergy status to analgesic agent

== ENCOUNTER 2018-02-15 14:56 | Emergency (ER) | payer MEDICAID ==
[2018-02-15 14:56] VITALS: BMI 23.7
[2018-02-15 15:14] VITALS: BP 122/64; PULSE 103; RESP 18; TEMP 98.3; O2SAT 97
--- NOTE | 2018-02-15 15:55 | ED PDOC ---
Lower Extremity Pain/Injury Time Seen by Provider: 02/15/18 15:32 Chief Complaint (Nursing): Lower Extremity Problem/Injury Chief Complaint (Provider): Lower Extremity Problem/Injury History Per: Patient History/Exam Limitations: no limitations Onset/Duration Of Symptoms: Persistent Current Symptoms Are (Timing): Still Present Additional Complaint(s): 52 year old male, well-known to ED, complaining of persistent bilateral leg pain. He denies any further medical complaints. Old charts reviewed: Patient was recently discharged on 02/14/18 from hospital admission for anemia. U/S of lower extremities: (-) DVT yesterday. PMD: Dr. Chanelle Rowe Past Medical History Reviewed: Historical Data, Nursing Documentation, Vital Signs Vital Signs: Last Vital Signs Temp 98.3 F 02/15/18 15:11 Pulse 103 H 02/15/18 15:11 Resp 18 02/15/18 15:11 BP 122/64 02/15/18 15:11 Pulse Ox 97 02/15/18 15:11 - Medical History PMH: Anemia, Anxiety, Back Problems (herniated disc), Deep Vein Thrombosis, Fractures (rib, left shoulder, left hand 5th digit, humerus), Gastritis, Seizures, Chronic Pain (left shoulder) Denies: CHF, HIV, Hypercholesterolemia, Chronic Kidney Disease, Sexually Transmitted Disease - Surgical History Surgical History: Endoscopy - Family History Family History: States: Unknown Family Hx - Immunization History Hx Tetanus Toxoid Vaccination: Yes Hx Influenza Vaccination: Yes Hx Pneumococcal Vaccination: Yes - Home Medications Home Medications: Ambulatory Orders Medication Instructions Recorded levETIRAcetam [Keppra] 500 mg PO Q12H 10/25/17 Folic Acid 1 mg PO DAILY #30 tab 11/25/17 Thiamine [Vitamin B1 Tab] 100 mg PO DAILY #30 tab 11/25/17 Acetaminophen [Tylenol 325mg tab] 650 mg PO Q6 PRN tab 02/10/18 Ferrous Sulfate [Feosol] 325 mg PO DAILY tab 02/10/18 Furosemide [Lasix] 20 mg PO DAILY #5 tab 02/10/18 Lactulose [Enulose] 20 gm PO DAILY PRN udc 02/10/18 Pantoprazole [Protonix EC Tab] 40 mg PO DAILY ect 02/10/18 - Allergies Allergies/Adverse Reactions: Allergies Allergy/AdvReac Type Severity Reaction Status Date / Time aspirin Allergy NAUSEA Verified 01/27/18 13:24 ibuprofen [From Motrin] Allergy NAUSEA Verified 01/27/18 13:24 naproxen Allergy RASH Verified 01/27/18 13:24 NSAIDS (Non-Steroidal Allergy NAUSEA Verified 01/27/18 13:24 Anti-Inflamma Review of Systems ROS Statement: Except As Marked, All Systems Reviewed And Found Negative Musculoskeletal: Positive for: Leg Pain (bilateral) Physical Exam - Reviewed Nursing Documentation Reviewed: Yes Vital Signs Reviewed: Yes - Physical Exam Appears: Positive for: No Acute Distress Respiratory: Positive for: Normal Breath Sounds. Negative for: Respiratory Distress Extremity: Positive for: Normal ROM (lower), Pedal Edema (2+ pitting bilaterally ) Neurologic/Psych: Positive for: Alert (x3), Oriented. Negative for: Motor/ Sensory Deficits - Laboratory Results Result Diagrams: 02/15/18 16:43 02/15/18 16:43 - ECG O2 Sat by Pulse Oximetry: 97 (RA) Pulse Ox Interpretation: Normal Medical Decision Making Medical Decision Making: Initial Impression: Chronic leg pain Initial Plan: * Labs ProBNP normal. Tramadol given for pain. Scribe Attestation: Documented by Dulce Hoffmann, acting as a scribe for Ninoska Wells PA-C. Provider Scribe Attestation: All medical record entries made by the Scribe were at my direction and personally dictated by me. I have reviewed the chart and agree that the record accurately reflects my personal performance of the history, physical exam, medical decision making, and the department course for this patient. I have also personally directed, reviewed, and agree with the discharge instructions and disposition. Disposition - Clinical Impression Clinical Impression: Bilateral lower extremity edema - Patient ED Disposition Is Patient to be Admitted: No Counseled Patient/Family Regarding: Diagnosis, Need For Followup - Disposition Disposition: Routine/Home Disposition Time: 17:58 Condition: STABLE Instructions: Dependent Edema (DC) Forms: [employer] (Angolan)
[2018-02-15 17:09] LABS: BASO # 0.1 K/uL (0.0-0.2); BASO % 1.6 % (0.0-2.0); EOS # 0.2 K/uL (0.0-0.7); EOS % 5.1 % (0.0-4.0); HEMOGLOBIN 8.6 g/dL (12.0-18.0); LYMPH # 0.7 K/uL (1.0-4.3); LYMPH % 20.9 % (20.0-40.0); MEAN CELL VOLUME 89.2 fl (80.0-94.0); MEAN CORPUSCULAR HEMOGLOBIN 28.8 pg (27.0-31.0); MEAN CORPUSCULAR HGB CONC 32.3 g/dL (33.0-37.0); MEAN PLATELET VOLUME 7.1 fl (7.2-11.7); MONO # 0.4 K/uL (0.0-0.8); MONO % 12.2 % (0.0-10.0); NEUT % 60.2 % (50.0-75.0); RED CELL DISTRIBUTION WIDTH 21.7 % (11.5-14.5); WHITE BLOOD COUNT 3.4 K/uL (4.8-10.8)
[2018-02-15 17:22] LABS: B-TYPE NATRIURETIC PEPTIDE 78.9 pg/ml (0-900)
[2018-02-15 17:28] LABS: ALB/GLOB RATIO 0.7 (1.0-2.1); ALBUMIN 2.6 g/dL (3.5-5.0); ALT/SGPT 38 U/L (21-72); AST/SGOT 71 U/L (17-59); BLOOD UREA NITROGEN 15 mg/dl (9-20); CALCIUM 8.1 mg/dL (8.4-10.2); GFR NON-AFRICAN AMERICAN > 60
== END 2018-02-15 19:24 | disposition home or self-care (01) ==
LOC: H.ER 14:56
DX: R60.0 Localized edema (principal); G89.29 Other chronic pain

== ENCOUNTER 2018-02-15 22:27 | Emergency (ER) | payer MEDICAID ==
[2018-02-15 22:27] VITALS: BMI 23.7
--- NOTE | 2018-02-15 23:30 | ED PDOC ---
HPI: Seizure Time Seen by Provider: 02/15/18 23:21 Chief Complaint (Nursing): Seizure Chief Complaint (Provider): seizure History Per: Patient History/Exam Limitations: no limitations Recent Seizure Activity Began: Hours Ago: (1) Number Of Seizures: One Precipitating Factor(s): Missed Dose Of Anti-seizure Medication Additional Complaint(s): 52 y/o male self-presents stating he had a seizure 1 hour prior to arrival witnessed by friend. Patient states he did not take his Keppra today, and was told he has no prescriptions left in the pharmacy for it. Denies head injury, headache, dizziness, vision changes, extremity numbness/weakness, chest pain, shortness of breath, palpitations, bowel/urine incontinence Past Medical History Reviewed: Historical Data, Nursing Documentation, Vital Signs Vital Signs: Last Vital Signs Temp 98.7 F 02/15/18 22:51 Pulse 94 H 02/15/18 22:51 Resp 18 02/15/18 22:51 BP 125/64 02/15/18 22:51 Pulse Ox 97 02/15/18 23:32 - Medical History PMH: Anemia, Anxiety, Back Problems (herniated disc), Deep Vein Thrombosis, Fractures (rib, left shoulder, left hand 5th digit, humerus), Gastritis, Seizures, Chronic Pain (left shoulder) Denies: CHF, HIV, Hypercholesterolemia, Chronic Kidney Disease, Sexually Transmitted Disease - Surgical History Surgical History: Endoscopy - Family History Family History: States: Unknown Family Hx - Immunization History Hx Tetanus Toxoid Vaccination: Yes Hx Influenza Vaccination: Yes Hx Pneumococcal Vaccination: Yes - Home Medications Home Medications: Ambulatory Orders Medication Instructions Recorded levETIRAcetam [Keppra] 500 mg PO Q12H 10/25/17 Folic Acid 1 mg PO DAILY #30 tab 11/25/17 Thiamine [Vitamin B1 Tab] 100 mg PO DAILY #30 tab 11/25/17 Acetaminophen [Tylenol 325mg tab] 650 mg PO Q6 PRN tab 02/10/18 Ferrous Sulfate [Feosol] 325 mg PO DAILY tab 02/10/18 Furosemide [Lasix] 20 mg PO DAILY #5 tab 02/10/18 Lactulose [Enulose] 20 gm PO DAILY PRN udc 02/10/18 Pantoprazole [Protonix EC Tab] 40 mg PO DAILY ect 02/10/18 Levetiracetam [Keppra] 500 mg PO BID #60 tablet 02/15/18 - Allergies Allergies/Adverse Reactions: Allergies Allergy/AdvReac Type Severity Reaction Status Date / Time aspirin Allergy NAUSEA Verified 01/27/18 13:24 ibuprofen [From Motrin] Allergy NAUSEA Verified 01/27/18 13:24 naproxen Allergy RASH Verified 01/27/18 13:24 NSAIDS (Non-Steroidal Allergy NAUSEA Verified 01/27/18 13:24 Anti-Inflamma Review of Systems ROS Statement: Except As Marked, All Systems Reviewed And Found Negative Neurological: Positive for: Seizures Physical Exam - Reviewed Nursing Documentation Reviewed: Yes Vital Signs Reviewed: Yes - Physical Exam Appears: Positive for: Well, Non-toxic, No Acute Distress Head Exam: Positive for: ATRAUMATIC, NORMAL INSPECTION, NORMOCEPHALIC Skin: Positive for: Normal Color Eye Exam: Positive for: Normal appearance ENT: Positive for: Normal ENT Inspection Cardiovascular/Chest: Positive for: Regular Rate, Rhythm Respiratory: Positive for: Normal Breath Sounds Gastrointestinal/Abdominal: Positive for: Normal Exam Back: Positive for: Normal Inspection Extremity: Positive for: Normal ROM Neurologic/Psych: Positive for: Alert, Oriented (x3) - ECG O2 Sat by Pulse Oximetry: 97 - Progress ED Course And Treament: accucheck, Keppra PO Patient observed in ED; remains AAOx3. Tolerated PO. Patient educated on findings, discharged with rx Keppra Advised follow up neuro Return precautions given Patient demonstrates full understanding of discharge instructions Patient requires no further intervention in ED and is stable for discharge at this time Disposition - Clinical Impression Clinical Impression: Generalized seizure - Patient ED Disposition Is Patient to be Admitted: No Counseled Patient/Family Regarding: Studies Performed, Diagnosis, Need For Followup, Rx Given - Disposition Disposition: Routine/Home Disposition Time: 00:45 Condition: IMPROVED Prescriptions: Levetiracetam [Keppra] 500 mg PO BID #60 tablet Instructions: Seizures
[2018-02-16 04:38] VITALS: RESP 16
[2018-02-16 04:41] VITALS: BP 131/64; PULSE 88; TEMP 97.7; O2SAT 98
== END 2018-02-16 01:45 | disposition home or self-care (01) ==
LOC: H.ER 22:27
DX: G40.909 Epilepsy, unspecified, not intractable, without status epilepticus (principal); G89.29 Other chronic pain; Z86.718 Personal history of other venous thrombosis and embolism; Z88.6 Allergy status to analgesic agent

== ENCOUNTER 2018-02-16 16:58 | Emergency (ER) | payer MEDICAID ==
[2018-02-16 16:58] VITALS: BMI 23.7
[2018-02-16 17:04] VITALS: BP 108/57; RESP 18; TEMP 99.1; O2SAT 95
[2018-02-16 17:22] VITALS: PULSE 100
[2018-02-16] MEDS ORDERED: Sodium Chloride 0.9% 1,000 ML IV STA (17:29)
[2018-02-16] MEDS ORDERED: Thiamine 100 mg/ml Inj IV STA (17:29)
--- NOTE | 2018-02-16 18:25 | ED PDOC ---
HPI: Abdomen Time Seen by Provider: 02/16/18 17:23 Chief Complaint (Nursing): GI Problem Chief Complaint (Provider): Vomiting History Per: Patient History/Exam Limitations: no limitations Additional History Per: Patient Additional Complaint(s): 52yo male, comes to ER complaining of 4 episodes of bloody vomiting, unwitnessed. Patient states this is due to espresso which he had this morning. Patient well known to ER and provider for multiple visits. Patient denies any alcohol use today. Past Medical History Reviewed: Historical Data, Nursing Documentation, Vital Signs Vital Signs: Last Vital Signs Temp 99.1 F 02/16/18 17:00 Pulse 100 H 02/16/18 17:21 Resp 18 02/16/18 17:00 BP 108/57 L 02/16/18 17:00 Pulse Ox 95 02/16/18 18:42 - Medical History PMH: Anemia, Anxiety, Back Problems (herniated disc), Deep Vein Thrombosis, Fractures (rib, left shoulder, left hand 5th digit, humerus), Gastritis, Seizures, Chronic Pain (left shoulder) Denies: CHF, HIV, Hypercholesterolemia, Chronic Kidney Disease, Sexually Transmitted Disease - Surgical History Surgical History: Endoscopy - Family History Family History: States: No Known Family Hx - Immunization History Hx Tetanus Toxoid Vaccination: Yes Hx Influenza Vaccination: Yes Hx Pneumococcal Vaccination: Yes - Home Medications Home Medications: Ambulatory Orders Medication Instructions Recorded levETIRAcetam [Keppra] 500 mg PO Q12H 10/25/17 Folic Acid 1 mg PO DAILY #30 tab 11/25/17 Thiamine [Vitamin B1 Tab] 100 mg PO DAILY #30 tab 11/25/17 Acetaminophen [Tylenol 325mg tab] 650 mg PO Q6 PRN tab 02/10/18 Ferrous Sulfate [Feosol] 325 mg PO DAILY tab 02/10/18 Furosemide [Lasix] 20 mg PO DAILY #5 tab 02/10/18 Lactulose [Enulose] 20 gm PO DAILY PRN udc 02/10/18 Pantoprazole [Protonix EC Tab] 40 mg PO DAILY ect 02/10/18 Levetiracetam [Keppra] 500 mg PO BID #60 tablet 02/15/18 Omeprazole Magnesium [Prilosec Otc] 20 mg PO DAILY #30 tcp 02/16/18 Ondansetron ODT [Zofran ODT] 1 odt PO Q6 PRN #20 odt 02/16/18 - Allergies Allergies/Adverse Reactions: Allergies Allergy/AdvReac Type Severity Reaction Status Date / Time aspirin Allergy NAUSEA Verified 02/16/18 17:00 ibuprofen [From Motrin] Allergy NAUSEA Verified 02/16/18 17:00 naproxen Allergy RASH Verified 02/16/18 17:00 NSAIDS (Non-Steroidal Allergy NAUSEA Verified 02/16/18 17:00 Anti-Inflamma Review of Systems ROS Statement: Except As Marked, All Systems Reviewed And Found Negative (as per HPI) Gastrointestinal: Positive for: Vomiting Physical Exam - Reviewed Nursing Documentation Reviewed: Yes Vital Signs Reviewed: Yes - Physical Exam Appears: Positive for: Non-toxic, No Acute Distress Head Exam: Positive for: ATRAUMATIC, NORMAL INSPECTION, NORMOCEPHALIC Skin: Positive for: Normal Color Eye Exam: Positive for: EOMI, PERRL ENT: Negative for: Pharyngeal Erythema, Tonsillar Exudate Neck: Positive for: Painless ROM, Supple Cardiovascular/Chest: Positive for: Regular Rate, Rhythm. Negative for: Murmur Respiratory: Positive for: Normal Breath Sounds. Negative for: Wheezing Gastrointestinal/Abdominal: Positive for: Soft, Tenderness (diffuse). Negative for: Mass, Guarding, Rebound Back: Positive for: Normal Inspection. Negative for: Decreased ROM Extremity: Positive for: Other (ecchymosis and abrasion to left posterior hip, no tenderness to site.) Lymphatic: Negative for: Adenopathy Neurologic/Psych: Positive for: Alert. Negative for: Motor/Sensory Deficits - Laboratory Results Result Diagrams: 02/16/18 18:40 02/16/18 18:40 - ECG O2 Sat by Pulse Oximetry: 95 (RA) Pulse Ox Interpretation: Normal Medical Decision Making Medical Decision Making: Impression: Plan: -- Labs -- Zofran 8mg IV -- Protonix 40mg IV -- IV Fluids -- Thiamine 100mg IVP Labs demonstrate improvement of hemoglobin c/w previous. In addition elevated BAL. Tolerated PO in ER. Stable for dc. Scribe Attestation: Documented by Kajal Chakraborty, acting as a scribe for Fatimah Morillo MD. Provider Scribe Attestation: All medical record entries made by the Scribe were at my direction and personally dictated by me. I have reviewed the chart and agree that the record accurately reflects my personal performance of the history, physical exam, medical decision making, and the department course for this patient. I have also personally directed, reviewed, and agree with the discharge instructions and disposition. Disposition - Clinical Impression Clinical Impression: Alcohol abuse - Disposition Referrals: [facility] [Outside] Disposition: Routine/Home Disposition Time: 19:00 Condition: IMPROVED Additional Instructions: STOP DRINKING ALCOHOL. IT WILL KILL YOU. Prescriptions: Omeprazole Magnesium [Prilosec Otc] 20 mg PO DAILY #30 tcp Ondansetron ODT [Zofran ODT] 1 odt PO Q6 PRN #20 odt PRN Reason: Nausea/Vomiting Instructions: Alcohol Abuse and Alcoholism (DC) Forms: [employer] (Marshallese)
[2018-02-16 18:52] LABS: BASO % 0.8 % (0.0-2.0); EOS # 0.2 K/uL (0.0-0.7); EOS % 5.9 % (0.0-4.0); LYMPH # 0.8 K/uL (1.0-4.3); LYMPH % 19.8 % (20.0-40.0); MEAN CELL VOLUME 88.4 fl (80.0-94.0); MEAN CORPUSCULAR HEMOGLOBIN 29.4 pg (27.0-31.0); MEAN CORPUSCULAR HGB CONC 33.3 g/dL (33.0-37.0); MONO # 0.5 K/uL (0.0-0.8); MONO % 11.2 % (0.0-10.0); NEUT # 2.6 K/uL (1.8-7.0); NEUT % 62.3 % (50.0-75.0); RBC 3.06 Mil/uL (4.40-5.90); RED CELL DISTRIBUTION WIDTH 20.8 % (11.5-14.5); WHITE BLOOD COUNT 4.2 K/uL (4.8-10.8)
[2018-02-16 19:06] LABS: ALB/GLOB RATIO 0.7 (1.0-2.1); ALBUMIN 2.6 g/dL (3.5-5.0); ALT/SGPT 41 U/L (21-72); AST/SGOT 74 U/L (17-59); BLOOD UREA NITROGEN 11 mg/dl (9-20); CALCIUM 8.3 mg/dL (8.4-10.2); GFR NON-AFRICAN AMERICAN > 60; INR 1.4; PROTHROMBIN TIME 15.6 Seconds (9.8-13.1)
[2018-02-16 19:09] LABS: PARTIAL THROMBOPLASTIN TIME 37.6 Seconds (25.6-37.1)
== END 2018-02-16 20:37 | disposition home or self-care (01) ==
LOC: H.ER 16:58
DX: F10.10 Alcohol abuse, uncomplicated (principal); G89.29 Other chronic pain; Z86.718 Personal history of other venous thrombosis and embolism; Z88.6 Allergy status to analgesic agent
CPT/HCPCS: 80053; 80320; 85025; 85610; 85730; 86850; 86900; 96361; 96374; 96375; 99284; C9113; J2405; J3411; J7030

== ENCOUNTER 2018-02-17 14:45 | Emergency (ER) | payer MEDICAID ==
[2018-02-17 14:45] VITALS: BMI 23.7
--- NOTE | 2018-02-17 15:33 | ED PDOC ---
HPI: Abdomen Time Seen by Provider: 02/17/18 15:13 Chief Complaint (Nursing): GI Problem Chief Complaint (Provider): epigastric pain and bloody vomit History Per: Patient History/Exam Limitations: no limitations Onset/Duration Of Symptoms: Hrs (today) Location Of Pain/Discomfort: Epigastric Additional Complaint(s): Shreyas Sepulveda is a 52 year old male, with a past medical history of seizure disorder, who presents to the emergency department complaining of epigastric pain and bloody vomit onset today. Patient denies any dizziness, bloody stools or dark tarry stools. No further medical complaints. PMD: None provided. Past Medical History Reviewed: Historical Data, Nursing Documentation, Vital Signs Vital Signs: Last Vital Signs Temp 100.0 F H 02/17/18 14:50 Pulse 97 H 02/17/18 14:50 Resp 16 02/17/18 14:50 BP 110/63 02/17/18 14:50 Pulse Ox 97 02/17/18 15:34 - Medical History PMH: Anemia, Anxiety, Back Problems (herniated disc), Deep Vein Thrombosis, Fractures (rib, left shoulder, left hand 5th digit, humerus), Gastritis, Seizures, Chronic Pain (left shoulder) Denies: CHF, HIV, Hypercholesterolemia, Chronic Kidney Disease, Sexually Transmitted Disease - Surgical History Surgical History: Endoscopy - Family History Family History: States: Unknown Family Hx - Social History Current smoker - smoking cessation education provided: Yes (Heavy smoker) Alcohol: > 2 Drinks/Day - Immunization History Hx Tetanus Toxoid Vaccination: Yes Hx Influenza Vaccination: Yes Hx Pneumococcal Vaccination: Yes - Home Medications Home Medications: Ambulatory Orders Medication Instructions Recorded levETIRAcetam [Keppra] 500 mg PO Q12H 10/25/17 Folic Acid 1 mg PO DAILY #30 tab 11/25/17 Thiamine [Vitamin B1 Tab] 100 mg PO DAILY #30 tab 11/25/17 Acetaminophen [Tylenol 325mg tab] 650 mg PO Q6 PRN tab 02/10/18 Ferrous Sulfate [Feosol] 325 mg PO DAILY tab 02/10/18 Furosemide [Lasix] 20 mg PO DAILY #5 tab 02/10/18 Lactulose [Enulose] 20 gm PO DAILY PRN udc 02/10/18 Pantoprazole [Protonix EC Tab] 40 mg PO DAILY ect 02/10/18 Levetiracetam [Keppra] 500 mg PO BID #60 tablet 02/15/18 Omeprazole Magnesium [Prilosec Otc] 20 mg PO DAILY #30 tcp 02/16/18 Ondansetron ODT [Zofran ODT] 1 odt PO Q6 PRN #20 odt 02/16/18 Pantoprazole Sodium [Protonix] 40 mg PO DAILY #30 tablet. 02/17/18 - Allergies Allergies/Adverse Reactions: Allergies Allergy/AdvReac Type Severity Reaction Status Date / Time aspirin Allergy NAUSEA Verified 02/17/18 14:47 ibuprofen [From Motrin] Allergy NAUSEA Verified 02/17/18 14:47 naproxen Allergy RASH Verified 02/17/18 14:47 NSAIDS (Non-Steroidal Allergy NAUSEA Verified 02/17/18 14:47 Anti-Inflamma Review of Systems ROS Statement: Except As Marked, All Systems Reviewed And Found Negative Gastrointestinal: Positive for: Abdominal Pain (epigastric), Hematemesis. Negative for: Melena, Hematochezia Neurological: Negative for: Dizziness Physical Exam - Reviewed Nursing Documentation Reviewed: Yes Vital Signs Reviewed: Yes - Physical Exam Appears: Positive for: No Acute Distress Head Exam: Positive for: ATRAUMATIC, NORMAL INSPECTION, NORMOCEPHALIC Skin: Positive for: Normal Color, Warm, Dry Eye Exam: Positive for: Normal appearance, EOMI, PERRL Neck: Positive for: Painless ROM Cardiovascular/Chest: Positive for: Regular Rate, Rhythm. Negative for: Murmur Respiratory: Positive for: Normal Breath Sounds. Negative for: Respiratory Distress Gastrointestinal/Abdominal: Positive for: Normal Exam, Soft. Negative for: Tenderness, Guarding, Rebound Back: Positive for: Normal Inspection. Negative for: L CVA Tenderness, R CVA Tenderness Extremity: Positive for: Normal ROM (upper and lower extremities). Negative for : Deformity, Swelling Neurologic/Psych: Positive for: Alert, Oriented, Gait (steady). Negative for: Motor/Sensory Deficits - Laboratory Results Result Diagrams: 02/17/18 15:25 02/17/18 15:25 - ECG O2 Sat by Pulse Oximetry: 97 (RA) Pulse Ox Interpretation: Normal Medical Decision Making Medical Decision Making: Time: 15:13 Initial Plan: --CMP --CBC w/ differential --Reevaluation Pt does not wish to stay. Requesting dc and outpt f/u. aware of risks including GI bleed and ----- Scribe Attestation: Documented by Giovany Puri, acting as a scribe for Jonathan Sousa MD. Provider Scribe Attestation: All medical record entries made by the Scribe were at my direction and personally dictated by me. I have reviewed the chart and agree that the record accurately reflects my personal performance of the history, physical exam, medical decision making, and the department course for this patient. I have also personally directed, reviewed, and agree with the discharge instructions and disposition. Disposition - Clinical Impression Clinical Impression: Gastritis - Patient ED Disposition Is Patient to be Admitted: No Counseled Patient/Family Regarding: Studies Performed, Diagnosis, Need For Followup, Rx Given - Disposition Referrals: [facility] [Outside] Disposition: Routine/Home Disposition Time: 16:08 Condition: FAIR Prescriptions: Pantoprazole Sodium [Protonix] 40 mg PO DAILY #30 tablet. Instructions: Gastritis Forms: [employer] (Cuban)
[2018-02-17 15:42] LABS: BASO % 1.4 % (0.0-2.0); EOS # 0.2 K/uL (0.0-0.7); EOS % 6.5 % (0.0-4.0); LYMPH # 0.6 K/uL (1.0-4.3); LYMPH % 20.4 % (20.0-40.0); MEAN CELL VOLUME 88.6 fl (80.0-94.0); MEAN CORPUSCULAR HEMOGLOBIN 28.5 pg (27.0-31.0); MEAN CORPUSCULAR HGB CONC 32.2 g/dL (33.0-37.0); MEAN PLATELET VOLUME 6.9 fl (7.2-11.7); MONO # 0.3 K/uL (0.0-0.8); MONO % 9.8 % (0.0-10.0); NEUT # 1.8 K/uL (1.8-7.0); NEUT % 61.9 % (50.0-75.0); NRBC % 0.2 % (0.0-0.0); RBC 2.81 Mil/uL (4.40-5.90); WHITE BLOOD COUNT 2.9 K/uL (4.8-10.8)
[2018-02-17] MEDS ORDERED: Pantoprazole 40 mg EC Tab PO STA (15:42)
[2018-02-17] MEDS ORDERED: Pantoprazole 40 mg EC Tab PO ONE (15:49)
[2018-02-17 16:06] LABS: ALB/GLOB RATIO 0.6 (1.0-2.1); ALBUMIN 2.4 g/dL (3.5-5.0); ALT/SGPT 35 U/L (21-72); AST/SGOT 71 U/L (17-59); BLOOD UREA NITROGEN 14 mg/dl (9-20); CALCIUM 7.9 mg/dL (8.4-10.2); GFR NON-AFRICAN AMERICAN > 60
[2018-02-17 16:54] VITALS: BP 112/65; PULSE 69; RESP 18; TEMP 99.5; O2SAT 99
== END 2018-02-17 17:00 | disposition home or self-care (01) ==
LOC: H.ER 14:45
DX: K29.70 Gastritis, unspecified, without bleeding (principal); K92.0 Hematemesis

== ENCOUNTER 2018-02-17 18:51 | Emergency (ER) | payer MEDICAID ==
[2018-02-17 18:52] VITALS: BMI 23.7
--- NOTE | 2018-02-17 20:56 | ED PDOC ---
HPI: Seizure Time Seen by Provider: 02/17/18 20:31 Chief Complaint (Nursing): Seizure Chief Complaint (Provider): Seizure History Per: Patient History/Exam Limitations: no limitations Additional Complaint(s): 52 year old male presents to the ED for an evaluation of a seizure. Patient is being seen and evaluated for the second time today. Reports he had a seizure after leaving the ED and needs a Kepprra. Denies any injury or fall. PMD: Chanelle Rowe Past Medical History Reviewed: Historical Data, Nursing Documentation, Vital Signs Vital Signs: Last Vital Signs Temp 99.2 F 02/17/18 19:13 Pulse 106 H 02/17/18 19:13 Resp 16 02/17/18 19:13 BP 127/70 02/17/18 19:13 Pulse Ox 96 02/17/18 21:33 - Medical History PMH: Anemia, Anxiety, Back Problems (herniated disc), Deep Vein Thrombosis, Fractures (rib, left shoulder, left hand 5th digit, humerus), Gastritis, Seizures, Chronic Pain (left shoulder) Denies: CHF, HIV, Hypercholesterolemia, Chronic Kidney Disease, Sexually Transmitted Disease - Surgical History Surgical History: Endoscopy - Family History Family History: States: Unknown Family Hx - Immunization History Hx Tetanus Toxoid Vaccination: Yes Hx Influenza Vaccination: Yes Hx Pneumococcal Vaccination: Yes - Home Medications Home Medications: Ambulatory Orders Medication Instructions Recorded levETIRAcetam [Keppra] 500 mg PO Q12H 10/25/17 Folic Acid 1 mg PO DAILY #30 tab 11/25/17 Thiamine [Vitamin B1 Tab] 100 mg PO DAILY #30 tab 11/25/17 Acetaminophen [Tylenol 325mg tab] 650 mg PO Q6 PRN tab 02/10/18 Ferrous Sulfate [Feosol] 325 mg PO DAILY tab 02/10/18 Furosemide [Lasix] 20 mg PO DAILY #5 tab 02/10/18 Lactulose [Enulose] 20 gm PO DAILY PRN udc 02/10/18 Pantoprazole [Protonix EC Tab] 40 mg PO DAILY ect 02/10/18 Levetiracetam [Keppra] 500 mg PO BID #60 tablet 02/15/18 Omeprazole Magnesium [Prilosec Otc] 20 mg PO DAILY #30 tcp 02/16/18 Ondansetron ODT [Zofran ODT] 1 odt PO Q6 PRN #20 odt 02/16/18 Pantoprazole Sodium [Protonix] 40 mg PO DAILY #30 tablet. 02/17/18 - Allergies Allergies/Adverse Reactions: Allergies Allergy/AdvReac Type Severity Reaction Status Date / Time aspirin Allergy NAUSEA Verified 02/17/18 19:13 ibuprofen [From Motrin] Allergy NAUSEA Verified 02/17/18 19:13 naproxen Allergy RASH Verified 02/17/18 19:13 NSAIDS (Non-Steroidal Allergy NAUSEA Verified 02/17/18 19:13 Anti-Inflamma Review of Systems ROS Statement: Except As Marked, All Systems Reviewed And Found Negative Neurological: Positive for: Seizures, Headache Psych: Negative for: Suicidal ideation (homicidal ideation) Physical Exam - Reviewed Nursing Documentation Reviewed: Yes Vital Signs Reviewed: Yes - Physical Exam Appears: Positive for: Well, Non-toxic, No Acute Distress Head Exam: Positive for: ATRAUMATIC, NORMAL INSPECTION, NORMOCEPHALIC Skin: Positive for: Normal Color, Warm, Dry Eye Exam: Positive for: EOMI, Normal appearance, PERRL ENT: Positive for: Normal ENT Inspection Neck: Positive for: Normal, Painless ROM Cardiovascular/Chest: Positive for: Regular Rate, Rhythm. Negative for: Murmur Respiratory: Positive for: Normal Breath Sounds. Negative for: Decreased Breath Sounds, Wheezing, Respiratory Distress Gastrointestinal/Abdominal: Positive for: Normal Exam, Bowel Sounds, Soft. Negative for: Tenderness, Guarding, Rebound Back: Positive for: Normal Inspection Extremity: Positive for: Normal ROM. Negative for: Tenderness, Pedal Edema, Deformity Neurologic/Psych: Positive for: Alert, Oriented (x3). Negative for: Motor/ Sensory Deficits - ECG O2 Sat by Pulse Oximetry: 96 (RA) Pulse Ox Interpretation: Normal Medical Decision Making Medical Decision Making: Time: 2125 Initial Impression: seizure Initial Plan: --Keppra 500mg --Reevaluation Pt sleeping in ED and asked to remain overnight Scribe Attestation: Documented by Jean Claude Whitmore, acting as a scribe for Fatimah Calzada PA-C. Provider Scribe Attestation: All medical record entries made by the Scribe were at my direction and personally dictated by me. I have reviewed the chart and agree that the record accurately reflects my personal performance of the history, physical exam, medical decision making, and the department course for this patient. I have also personally directed, reviewed, and agree with the discharge instructions and disposition. Disposition - Clinical Impression Clinical Impression: Alcoholism, Seizure - Patient ED Disposition Is Patient to be Admitted: No - Disposition Disposition: Routine/Home Disposition Time: 23:31 Condition: STABLE Instructions: Seizures, Adult (DC), Alcohol Abuse and Alcoholism (DC) Forms: [employer] (Faroese)
[2018-02-17 23:55] VITALS: BP 130/78; PULSE 81; RESP 18; TEMP 98; O2SAT 97
== END 2018-02-17 23:55 | disposition home or self-care (01) ==
LOC: H.ER 18:51
DX: F10.20 Alcohol dependence, uncomplicated (principal); R56.9 Unspecified convulsions

== ENCOUNTER 2018-02-19 01:56 | Emergency (ER) | payer MEDICAID ==
[2018-02-19 01:56] VITALS: BMI 23.7
--- NOTE | 2018-02-19 04:09 | ED PDOC ---
HPI: Seizure Time Seen by Provider: 02/19/18 02:34 Chief Complaint (Nursing): Seizure Chief Complaint (Provider): Seizure History Per: Patient History/Exam Limitations: no limitations Additional Complaint(s): 52 year old male well known to the ED for frequent visits presents today for evaluation s/p seizure. He states that at 0100 he got off work and went out to a bar where he believes he had a seizure. Patient reports he did not take his Keppra today. Otherwise, denies headache and other complaints. PMD: none provided Past Medical History Reviewed: Historical Data, Nursing Documentation, Vital Signs Vital Signs: Last Vital Signs Temp 97.5 F L 02/19/18 02:03 Pulse 91 H 02/19/18 02:03 Resp 18 02/19/18 02:03 BP 110/61 02/19/18 02:03 Pulse Ox 94 L 02/19/18 04:11 - Medical History PMH: Anemia, Anxiety, Back Problems (herniated disc), Deep Vein Thrombosis, Fractures (rib, left shoulder, left hand 5th digit, humerus), Gastritis, Seizures, Chronic Pain (left shoulder) Denies: CHF, HIV, Hypercholesterolemia, Chronic Kidney Disease, Sexually Transmitted Disease - Surgical History Surgical History: Endoscopy - Family History Family History: States: Unknown Family Hx - Social History Alcohol: Other (hx of abuse) - Immunization History Hx Tetanus Toxoid Vaccination: Yes Hx Influenza Vaccination: Yes Hx Pneumococcal Vaccination: Yes - Home Medications Home Medications: Ambulatory Orders Medication Instructions Recorded levETIRAcetam [Keppra] 500 mg PO Q12H 10/25/17 Folic Acid 1 mg PO DAILY #30 tab 11/25/17 Thiamine [Vitamin B1 Tab] 100 mg PO DAILY #30 tab 11/25/17 Acetaminophen [Tylenol 325mg tab] 650 mg PO Q6 PRN tab 02/10/18 Ferrous Sulfate [Feosol] 325 mg PO DAILY tab 02/10/18 Furosemide [Lasix] 20 mg PO DAILY #5 tab 02/10/18 Lactulose [Enulose] 20 gm PO DAILY PRN udc 02/10/18 Pantoprazole [Protonix EC Tab] 40 mg PO DAILY ect 02/10/18 Levetiracetam [Keppra] 500 mg PO BID #60 tablet 02/15/18 Omeprazole Magnesium [Prilosec Otc] 20 mg PO DAILY #30 tcp 02/16/18 Ondansetron ODT [Zofran ODT] 1 odt PO Q6 PRN #20 odt 02/16/18 Pantoprazole Sodium [Protonix] 40 mg PO DAILY #30 tablet. 02/17/18 - Allergies Allergies/Adverse Reactions: Allergies Allergy/AdvReac Type Severity Reaction Status Date / Time aspirin Allergy NAUSEA Verified 02/19/18 02:20 ibuprofen [From Motrin] Allergy NAUSEA Verified 02/19/18 02:20 naproxen Allergy RASH Verified 02/19/18 02:20 NSAIDS (Non-Steroidal Allergy NAUSEA Verified 02/19/18 02:20 Anti-Inflamma Review of Systems ROS Statement: Except As Marked, All Systems Reviewed And Found Negative Neurological: Positive for: Seizures. Negative for: Headache Physical Exam - Reviewed Nursing Documentation Reviewed: Yes Vital Signs Reviewed: Yes - Physical Exam Appears: Positive for: No Acute Distress Head Exam: Positive for: ATRAUMATIC, NORMAL INSPECTION Skin: Positive for: Normal Color, Warm, Dry Eye Exam: Positive for: Normal appearance ENT: Positive for: Normal ENT Inspection. Negative for: Other (oral injury) Neck: Positive for: Normal, Painless ROM, Supple Cardiovascular/Chest: Positive for: Regular Rate, Rhythm Respiratory: Positive for: Normal Breath Sounds. Negative for: Accessory Muscle Use, Respiratory Distress Gastrointestinal/Abdominal: Positive for: Normal Exam, Soft. Negative for: Tenderness Back: Positive for: Normal Inspection Extremity: Positive for: Normal ROM Neurologic/Psych: Positive for: Alert, Oriented - ECG O2 Sat by Pulse Oximetry: 94 Pulse Ox Interpretation: Normal (for patient) Medical Decision Making Medical Decision Making: Time: 329 Initial Impression: seizure, malingering Initial Plan: --Keppra 500 mg PO Scribe Attestation: Documented by Meryl Mahoney, acting as a scribe for Lincoln Olivier PA-C. Provider Scribe Attestation: All medical record entries made by the Scribe were at my direction and personally dictated by me. I have reviewed the chart and agree that the record accurately reflects my personal performance of the history, physical exam, medical decision making, and the department course for this patient. I have also personally directed, reviewed, and agree with the discharge instructions and disposition. Disposition - Clinical Impression Clinical Impression: Seizure - Patient ED Disposition Is Patient to be Admitted: No - Disposition Referrals: [facility] [Outside] Disposition: Routine/Home Disposition Time: 03:35 Condition: STABLE Additional Instructions: KINDRA MARTINI, thank you for letting us take care of you today. Your provider was Olaf Fernandez MD and you were treated for SEIZURES. The emergency medical care you received today was directed at your acute symptoms. If you were prescribed any medication, please fill it and take as directed. It may take several days for your symptoms to resolve. Return to the Emergency Department if your symptoms worsen, do not improve, or if you have any other problems. Please contact your doctor or call one of the physicians/clinics you have been referred to that are listed on the Patient Visit Information form that is included in your discharge packet. Bring any paperwork you were given at discharge with you along with any medications you are taking to your follow up visit. Our treatment cannot replace ongoing medical care by a primary care provider outside of the emergency department. Thank you for allowing the [facility] team to be part of your care today. If you had an X-Ray or CT scan: A Radiologist will review the ED reading if any change in treatment is needed we will contact you. If you had a blood, urine, or wound culture: It will take several days for the results, if any change in treatment is needed we will contact you. If you had an STI test: It will take 48 hours for the results. Please call after 1 week if you have not heard back. Instructions: Seizures, Adult (DC) Forms: [employer] (Djiboutian)
[2018-02-19 05:52] VITALS: BP 114/78; PULSE 87; RESP 17; TEMP 98; O2SAT 98
== END 2018-02-19 05:52 | disposition home or self-care (01) ==
LOC: H.ER 01:56
DX: G40.909 Epilepsy, unspecified, not intractable, without status epilepticus (principal)

== ENCOUNTER 2018-02-19 14:09 | Emergency (ER) | payer MEDICAID ==
[2018-02-19 14:09] VITALS: BMI 23.7
--- NOTE | 2018-02-19 14:53 | ED PDOC ---
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 Ambulatory to triage with steady gait. Pt asking for sandwich, preferably roast beef, while in ED. Past Medical History Reviewed: Nursing Documentation, Vital Signs Vital Signs: Last Vital Signs Temp 98.4 F 02/19/18 14:16 Pulse 90 02/19/18 16:39 Resp 19 02/19/18 16:39 BP 110/60 02/19/18 16:39 Pulse Ox 96 02/19/18 16:39 - Medical History PMH: Anemia, Anxiety, Back Problems (herniated disc), Deep Vein Thrombosis, Fractures (rib, left shoulder, left hand 5th digit, humerus), Gastritis, Seizures, Chronic Pain (left shoulder) Denies: CHF, HIV, Hypercholesterolemia, Chronic Kidney Disease, Sexually Transmitted Disease - Surgical History Surgical History: Endoscopy - Family History Family History: States: Unknown Family Hx - Immunization History Hx Tetanus Toxoid Vaccination: Yes Hx Influenza Vaccination: Yes Hx Pneumococcal Vaccination: Yes - Home Medications Home Medications: Ambulatory Orders Medication Instructions Recorded levETIRAcetam [Keppra] 500 mg PO Q12H 10/25/17 Folic Acid 1 mg PO DAILY #30 tab 11/25/17 Thiamine [Vitamin B1 Tab] 100 mg PO DAILY #30 tab 11/25/17 Acetaminophen [Tylenol 325mg tab] 650 mg PO Q6 PRN tab 02/10/18 Ferrous Sulfate [Feosol] 325 mg PO DAILY tab 02/10/18 Furosemide [Lasix] 20 mg PO DAILY #5 tab 02/10/18 Lactulose [Enulose] 20 gm PO DAILY PRN udc 02/10/18 Pantoprazole [Protonix EC Tab] 40 mg PO DAILY ect 02/10/18 Levetiracetam [Keppra] 500 mg PO BID #60 tablet 02/15/18 Omeprazole Magnesium [Prilosec Otc] 20 mg PO DAILY #30 tcp 02/16/18 Ondansetron ODT [Zofran ODT] 1 odt PO Q6 PRN #20 odt 02/16/18 Pantoprazole Sodium [Protonix] 40 mg PO DAILY #30 tablet 02/17/18 - Allergies Allergies/Adverse Reactions: Allergies Allergy/AdvReac Type Severity Reaction Status Date / Time aspirin Allergy NAUSEA Verified 02/19/18 14:16 ibuprofen [From Motrin] Allergy NAUSEA Verified 02/19/18 14:16 naproxen Allergy RASH Verified 02/19/18 14:16 NSAIDS (Non-Steroidal Allergy NAUSEA Verified 02/19/18 14:16 Anti-Inflamma Review of Systems ROS Statement: Except As Marked, All Systems Reviewed And Found Negative Physical Exam - Reviewed Nursing Documentation Reviewed: Yes Vital Signs Reviewed: Yes - Physical Exam Appears: Positive for: Well, Non-toxic, No Acute Distress Head Exam: Positive for: ATRAUMATIC, NORMAL INSPECTION, NORMOCEPHALIC Skin: Positive for: Normal Color, Warm, DRY Eye Exam: Positive for: EOMI, Normal appearance, PERRL ENT: Positive for: Normal ENT Inspection Neck: Positive for: Normal, Painless ROM Cardiovascular/Chest: Positive for: Regular Rate, Rhythm Respiratory: Positive for: CNT, Normal Breath Sounds Gastrointestinal/Abdominal: Positive for: Normal Exam, Soft Back: Positive for: Normal Inspection Extremity: Positive for: Normal ROM Neurologic/Psych: Positive for: Alert, Oriented - Laboratory Results Result Diagrams: 02/19/18 15:25 02/19/18 15:25 - ECG O2 Sat by Pulse Oximetry: 98 Disposition - Clinical Impression Clinical Impression: Seizure disorder - Patient ED Disposition Is Patient to be Admitted: No - Disposition Disposition: Routine/Home Disposition Time: 19:30 Condition: STABLE Instructions: Seizures, Adult (DC) Forms: [employer] (Cymro)
[2018-02-19 15:33] LABS: BASO % 0.5 % (0.0-2.0); EOS # 0.2 K/uL (0.0-0.7); EOS % 7.7 % (0.0-4.0); HEMOGLOBIN 8.8 g/dL (12.0-18.0); LYMPH # 0.7 K/uL (1.0-4.3); LYMPH % 22.9 % (20.0-40.0); MEAN CELL VOLUME 89.1 fl (80.0-94.0); MEAN CORPUSCULAR HEMOGLOBIN 28.8 pg (27.0-31.0); MEAN CORPUSCULAR HGB CONC 32.3 g/dL (33.0-37.0); MEAN PLATELET VOLUME 7.1 fl (7.2-11.7); MONO # 0.4 K/uL (0.0-0.8); MONO % 11.9 % (0.0-10.0); NEUT # 1.7 K/uL (1.8-7.0); NRBC % 0.2 % (0.0-0.0); RBC 3.06 Mil/uL (4.40-5.90); RED CELL DISTRIBUTION WIDTH 21.3 % (11.5-14.5); WHITE BLOOD COUNT 3.1 K/uL (4.8-10.8)
[2018-02-19 16:36] LABS: ALB/GLOB RATIO 0.7 (1.0-2.1); ALBUMIN 2.7 g/dL (3.5-5.0); ALT/SGPT 44 U/L (21-72); AST/SGOT 88 U/L (17-59); BLOOD UREA NITROGEN 14 mg/dl (9-20); CALCIUM 8.1 mg/dL (8.4-10.2); GFR NON-AFRICAN AMERICAN > 60
[2018-02-19 19:30] VITALS: O2SAT 98
[2018-02-19 20:09] VITALS: BP 114/68; PULSE 103; RESP 18; TEMP 98.6
--- NOTE | 2018-02-20 17:52 | CARD ---
APPROVED REPORT Date of service: 02/19/2018 EKG Measurement Heart [id number] <Conclusion> Normal sinus rhythm Possible Left atrial enlargement Prolonged QT Abnormal ECG
== END 2018-02-19 20:19 | disposition home or self-care (01) ==
LOC: H.ER 14:09
DX: G40.909 Epilepsy, unspecified, not intractable, without status epilepticus (principal); R11.10 Vomiting, unspecified; F41.9 Anxiety disorder, unspecified; G89.29 Other chronic pain; Z86.718 Personal history of other venous thrombosis and embolism; Z88.6 Allergy status to analgesic agent

== ENCOUNTER 2018-02-20 00:16 | Emergency (ER) | payer MEDICAID ==
[2018-02-20 00:16] VITALS: BMI 23.7
[2018-02-20 00:51] VITALS: O2SAT 97
--- NOTE | 2018-02-20 01:11 | ED PDOC ---
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 He offers no further medical complaints. PMD: Dr. Chanelle Rowe Past Medical History Reviewed: Historical Data, Nursing Documentation, Vital Signs Vital Signs: Last Vital Signs Temp 98.2 F 02/20/18 00:48 Pulse 110 H 02/20/18 00:48 Resp 22 02/20/18 00:48 BP Pulse Ox 97 02/20/18 05:54 - Medical History PMH: Anemia, Anxiety, Back Problems (herniated disc), Deep Vein Thrombosis, Fractures (rib, left shoulder, left hand 5th digit, humerus), Gastritis, Seizures, Chronic Pain (left shoulder) Denies: CHF, HIV, Hypercholesterolemia, Chronic Kidney Disease, Sexually Transmitted Disease - Surgical History Surgical History: Endoscopy - Family History Family History: States: Unknown Family Hx - Immunization History Hx Tetanus Toxoid Vaccination: Yes Hx Influenza Vaccination: Yes Hx Pneumococcal Vaccination: Yes - Home Medications Home Medications: Ambulatory Orders Medication Instructions Recorded levETIRAcetam [Keppra] 500 mg PO Q12H 10/25/17 Folic Acid 1 mg PO DAILY #30 tab 11/25/17 Thiamine [Vitamin B1 Tab] 100 mg PO DAILY #30 tab 11/25/17 Acetaminophen [Tylenol 325mg tab] 650 mg PO Q6 PRN tab 02/10/18 Ferrous Sulfate [Feosol] 325 mg PO DAILY tab 02/10/18 Furosemide [Lasix] 20 mg PO DAILY #5 tab 02/10/18 Lactulose [Enulose] 20 gm PO DAILY PRN udc 02/10/18 Pantoprazole [Protonix EC Tab] 40 mg PO DAILY ect 02/10/18 Levetiracetam [Keppra] 500 mg PO BID #60 tablet 02/15/18 Omeprazole Magnesium [Prilosec Otc] 20 mg PO DAILY #30 tcp 02/16/18 Ondansetron ODT [Zofran ODT] 1 odt PO Q6 PRN #20 odt 02/16/18 Pantoprazole Sodium [Protonix] 40 mg PO DAILY #30 tablet. 02/17/18 - Allergies Allergies/Adverse Reactions: Allergies Allergy/AdvReac Type Severity Reaction Status Date / Time aspirin Allergy NAUSEA Verified 02/20/18 00:48 ibuprofen [From Motrin] Allergy NAUSEA Verified 02/20/18 00:48 naproxen Allergy RASH Verified 02/20/18 00:48 NSAIDS (Non-Steroidal Allergy NAUSEA Verified 02/20/18 00:48 Anti-Inflamma Review of Systems ROS Statement: Except As Marked, All Systems Reviewed And Found Negative Neurological: Positive for: Seizures Physical Exam - Reviewed Nursing Documentation Reviewed: Yes Vital Signs Reviewed: Yes - Physical Exam Appears: Positive for: No Acute Distress Head Exam: Positive for: ATRAUMATIC, NORMAL INSPECTION, NORMOCEPHALIC Skin: Positive for: Normal Color Eye Exam: Positive for: Normal appearance ENT: Positive for: Normal ENT Inspection Neck: Positive for: Normal Cardiovascular/Chest: Positive for: Regular Rate, Rhythm, Chest Non Tender. Negative for: Murmur Respiratory: Positive for: Normal Breath Sounds. Negative for: Wheezing, Respiratory Distress Gastrointestinal/Abdominal: Positive for: Normal Exam, Soft. 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 Negative for: Motor/Sensory Deficits, Aphasia - ECG O2 Sat by Pulse Oximetry: 97 (RA) Pulse Ox Interpretation: Normal Medical Decision Making Medical Decision Making: Initial Impression: 52 year old male with malingering behavior. Initial Plan: * Keppra 500mg PO Time: 05 --Upon provider reevaluation, patient is medically stable and requires no further treatment in the ED at this time. Patient will be discharged home. Counseling was provided and all questions were answered regarding diagnosis. There is agreement to discharge plan. Return if symptoms persist or worsen. Scribe Attestation: Documented by Dulce Hoffmann, acting as a scribe for Olaf Fernandez MD. Provider Scribe Attestation: All medical record entries made by the Scribe were at my direction and personally dictated by me. I have reviewed the chart and agree that the record accurately reflects my personal performance of the history, physical exam, medical decision making, and the department course for this patient. I have also personally directed, reviewed, and agree with the discharge instructions and disposition. Disposition - Clinical Impression Clinical Impression: Seizure disorder, Malingering - Disposition Disposition Time: 07:00 Condition: STABLE Instructions: Seizures, Adult (DC) Forms: [employer] (Surinamese)
[2018-02-20 07:01] VITALS: BP 140/69; PULSE 89; RESP 16; TEMP 98.4
== END 2018-02-20 07:02 | disposition home or self-care (01) ==
LOC: H.ER 00:16
DX: Z76.5 Malingerer [conscious simulation] (principal); G40.909 Epilepsy, unspecified, not intractable, without status epilepticus

== ENCOUNTER 2018-02-20 13:48 | Emergency (ER) | payer MEDICAID ==
[2018-02-20 13:56] VITALS: BMI 24.0
[2018-02-20 13:57] VITALS: TEMP 98.4; O2SAT 99
--- NOTE | 2018-02-20 14:52 | ED PDOC ---
HPI: General Adult Time Seen by Provider: 02/20/18 14:39 Chief Complaint (Nursing): Medical Clearance Chief Complaint (Provider): Seizure History Per: Patient Additional Complaint(s): 52 year old male well known to the ED for frequent visits presents today for evaluation s/p seizure. He states that at 0100 he got off work and went out to a bar where he believes he had a seizure. Patient reports he did not take his Keppra today. Otherwise, denies headache and other complaints. PMD: none provided Past Medical History Vital Signs: Last Vital Signs Temp 98.4 F 02/20/18 13:56 Pulse 81 02/20/18 18:26 Resp 16 02/20/18 18:26 BP 127/81 02/20/18 18:26 Pulse Ox 99 02/20/18 18:26 - Medical History PMH: Anemia, Anxiety, Back Problems (herniated disc), Deep Vein Thrombosis, Fractures (rib, left shoulder, left hand 5th digit, humerus), Gastritis, Seizures, Chronic Pain (left shoulder) Denies: CHF, HIV, Hypercholesterolemia, Chronic Kidney Disease, Sexually Transmitted Disease - Surgical History Surgical History: Endoscopy - Family History Family History: States: Unknown Family Hx - Immunization History Hx Tetanus Toxoid Vaccination: Yes Hx Influenza Vaccination: Yes Hx Pneumococcal Vaccination: Yes - Home Medications Home Medications: Ambulatory Orders Medication Instructions Recorded levETIRAcetam [Keppra] 500 mg PO Q12H 10/25/17 Folic Acid 1 mg PO DAILY #30 tab 11/25/17 Thiamine [Vitamin B1 Tab] 100 mg PO DAILY #30 tab 11/25/17 Acetaminophen [Tylenol 325mg tab] 650 mg PO Q6 PRN tab 02/10/18 Ferrous Sulfate [Feosol] 325 mg PO DAILY tab 02/10/18 Furosemide [Lasix] 20 mg PO DAILY #5 tab 02/10/18 Lactulose [Enulose] 20 gm PO DAILY PRN udc 02/10/18 Pantoprazole [Protonix EC Tab] 40 mg PO DAILY ect 02/10/18 Levetiracetam [Keppra] 500 mg PO BID #60 tablet 02/15/18 Omeprazole Magnesium [Prilosec Otc] 20 mg PO DAILY #30 tcp 02/16/18 Ondansetron ODT [Zofran ODT] 1 odt PO Q6 PRN #20 odt 02/16/18 Pantoprazole Sodium [Protonix] 40 mg PO DAILY #30 tablet. 02/17/18 - Allergies Allergies/Adverse Reactions: Allergies Allergy/AdvReac Type Severity Reaction Status Date / Time aspirin Allergy NAUSEA Verified 02/22/18 14:26 ibuprofen [From Motrin] Allergy NAUSEA Verified 02/22/18 14:26 naproxen Allergy RASH Verified 02/22/18 14:26 NSAIDS (Non-Steroidal Allergy NAUSEA Verified 02/22/18 14:26 Anti-Inflamma - ECG O2 Sat by Pulse Oximetry: 99 Disposition - Clinical Impression Clinical Impression: Alcoholism - Patient ED Disposition Is Patient to be Admitted: No - Disposition Disposition: Routine/Home Disposition Time: 21:20 Condition: IMPROVED Instructions: General (DC) Forms: [employer] (Lithuanian)
[2018-02-20 18:26] VITALS: BP 127/81; PULSE 81; RESP 16
== END 2018-02-20 18:26 | disposition home or self-care (01) ==
LOC: H.ER 13:48
DX: F10.20 Alcohol dependence, uncomplicated (principal)

== ENCOUNTER 2018-02-20 20:56 | Emergency (ER) | payer MEDICAID ==
[2018-02-20 20:57] VITALS: BMI 24.0
[2018-02-20 21:53] VITALS: BP 120/76; PULSE 99; RESP 18; TEMP 98; O2SAT 99
--- NOTE | 2018-02-20 22:01 | ED PDOC ---
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 States he immediately came to ED afterwards. Also states he's had constant R shoulder pain for the past 2 months which is due to a fx he sustained. Denies LOC, headache, new shoulder trauma, incontinence. Of note, pt. is well known to provider. Pt. has already had 3 doses of Keppra 500mg given to him today. Past Medical History Reviewed: Historical Data, Nursing Documentation, Vital Signs Vital Signs: Last Vital Signs Temp 98 F 02/20/18 21:53 Pulse 99 H 02/20/18 21:53 Resp 18 02/20/18 21:53 BP 120/76 02/20/18 21:53 Pulse Ox 99 02/20/18 21:53 - Medical History PMH: Anemia, Anxiety, Back Problems (herniated disc), Deep Vein Thrombosis, Fractures (rib, left shoulder, left hand 5th digit, humerus), Gastritis, Seizures, Chronic Pain (left shoulder) Denies: CHF, HIV, Hypercholesterolemia, Chronic Kidney Disease, Sexually Transmitted Disease - Surgical History Surgical History: Endoscopy - Family History Family History: States: Unknown Family Hx - Immunization History Hx Tetanus Toxoid Vaccination: Yes Hx Influenza Vaccination: Yes Hx Pneumococcal Vaccination: Yes - Home Medications Home Medications: Ambulatory Orders Medication Instructions Recorded levETIRAcetam [Keppra] 500 mg PO Q12H 10/25/17 Folic Acid 1 mg PO DAILY #30 tab 11/25/17 Thiamine [Vitamin B1 Tab] 100 mg PO DAILY #30 tab 11/25/17 Acetaminophen [Tylenol 325mg tab] 650 mg PO Q6 PRN tab 02/10/18 Ferrous Sulfate [Feosol] 325 mg PO DAILY tab 02/10/18 Furosemide [Lasix] 20 mg PO DAILY #5 tab 02/10/18 Lactulose [Enulose] 20 gm PO DAILY PRN udc 02/10/18 Pantoprazole [Protonix EC Tab] 40 mg PO DAILY ect 02/10/18 Levetiracetam [Keppra] 500 mg PO BID #60 tablet 02/15/18 Omeprazole Magnesium [Prilosec Otc] 20 mg PO DAILY #30 tcp 08/29/18 Ondansetron ODT [Zofran ODT] 1 odt PO Q6 PRN #20 odt 02/16/18 Pantoprazole Sodium [Protonix] 40 mg PO DAILY #30 tablet. 02/17/18 - Allergies Allergies/Adverse Reactions: Allergies Allergy/AdvReac Type Severity Reaction Status Date / Time aspirin Allergy NAUSEA Verified 02/20/18 21:08 ibuprofen [From Motrin] Allergy NAUSEA Verified 02/20/18 21:08 naproxen Allergy RASH Verified 02/20/18 21:08 NSAIDS (Non-Steroidal Allergy NAUSEA Verified 02/20/18 21:08 Anti-Inflamma Review of Systems ROS Statement: Except As Marked, All Systems Reviewed And Found Negative Musculoskeletal: Positive for: Shoulder Pain Physical Exam - Physical Exam Appears: Positive for: Well, Non-toxic, No Acute Distress Head Exam: Positive for: ATRAUMATIC, NORMAL INSPECTION, NORMOCEPHALIC Skin: Positive for: Normal Color, Warm. Negative for: Rash Eye Exam: Positive for: EOMI, Normal appearance, PERRL ENT: Positive for: Normal ENT Inspection, Other (no oral injury) Neck: Positive for: Normal, Painless ROM Cardiovascular/Chest: Positive for: Regular Rate, Rhythm, Chest Non Tender Respiratory: Positive for: CNT, Normal Breath Sounds Pulses-Radial (L): 2+ Pulses-Radial (R): 2+ Gastrointestinal/Abdominal: Positive for: Normal Exam, Soft. Negative for: Tenderness Extremity: Positive for: Normal ROM (FROM actively of R shoulder without pain; R shoulder without tenderness or deformity; no clavicular tenderness), Capillary Refill (< 2 seconds of RIGHT upper extremity) Neurologic/Psych: Positive for: Alert, Oriented (x3). Negative for: Aphasia, Facial Droop - ECG O2 Sat by Pulse Oximetry: 99 Disposition - Clinical Impression Clinical Impression: Malingerer - Patient ED Disposition Is Patient to be Admitted: No - Disposition Referrals: [facility] [Outside] Disposition: Routine/Home Disposition Time: 21:30 Condition: STABLE Additional Instructions: KINDRA MARTINI, thank you for letting us take care of you today. Your provider was Fatimah Morillo MD and you were treated for SEIZURES. The emergency medical care you received today was directed at your acute symptoms. If you were prescribed any medication, please fill it and take as directed. It may take several days for your symptoms to resolve. Return to the Emergency Department if your symptoms worsen, do not improve, or if you have any other problems. Please contact your doctor or call one of the physicians/clinics you have been referred to that are listed on the Patient Visit Information form that is included in your discharge packet. Bring any paperwork you were given at discharge with you along with any medications you are taking to your follow up visit. Our treatment cannot replace ongoing medical care by a primary care provider outside of the emergency department. Thank you for allowing the [facility] team to be part of your care today. If you had an X-Ray or CT scan: A Radiologist will review the ED reading if any change in treatment is needed we will contact you. If you had a blood, urine, or wound culture: It will take several days for the results, if any change in treatment is needed we will contact you. If you had an STI test: It will take 48 hours for the results. Please call after 1 week if you have not heard back. Print Language: [id number]
== END 2018-02-20 22:49 | disposition home or self-care (01) ==
LOC: H.ER 20:56
DX: Z76.5 Malingerer [conscious simulation] (principal)

== ENCOUNTER 2018-02-21 02:45 | Emergency (ER) | payer MEDICAID ==
[2018-02-21 02:46] VITALS: BMI 24.0
[2018-02-21 02:56] VITALS: BP 130/86; PULSE 89; RESP 16; TEMP 98; O2SAT 99
--- NOTE | 2018-02-21 03:08 | ED PDOC ---
HPI: Abdomen Time Seen by Provider: 02/21/18 03:00 Chief Complaint (Nursing): Abdominal Pain Chief Complaint (Provider): abdominal pain History Per: Patient History/Exam Limitations: no limitations Onset/Duration Of Symptoms: Hrs (today) Additional Complaint(s): Shreyas Sepulveda is a 52 year old male, with a past medical history of seizure disorder, who presents to the emergency department complaining of abdominal pain. Patient is non domicile and well known to ER for bed seeking behavior. He denies any other medical complaints. Patient admits to not taking his Keppra since yesterday when provider last saw him in the ER. PMD: None provided. Past Medical History Reviewed: Historical Data, Nursing Documentation, Vital Signs Vital Signs: Last Vital Signs Temp 98.0 F 02/21/18 02:55 Pulse 89 02/21/18 02:55 Resp 16 02/21/18 02:55 BP 130/86 02/21/18 02:55 Pulse Ox 99 02/21/18 03:10 - Medical History PMH: Anemia, Anxiety, Back Problems (herniated disc), Deep Vein Thrombosis, Fractures (rib, left shoulder, left hand 5th digit, humerus), Gastritis, Seizures, Chronic Pain (left shoulder) Denies: CHF, HIV, Hypercholesterolemia, Chronic Kidney Disease, Sexually Transmitted Disease - Surgical History Surgical History: Endoscopy - Family History Family History: States: Unknown Family Hx - Immunization History Hx Tetanus Toxoid Vaccination: Yes Hx Influenza Vaccination: Yes Hx Pneumococcal Vaccination: Yes - Home Medications Home Medications: Ambulatory Orders Medication Instructions Recorded levETIRAcetam [Keppra] 500 mg PO Q12H 10/25/17 Folic Acid 1 mg PO DAILY #30 tab 11/25/17 Thiamine [Vitamin B1 Tab] 100 mg PO DAILY #30 tab 11/25/17 Acetaminophen [Tylenol 325mg tab] 650 mg PO Q6 PRN tab 02/10/18 Ferrous Sulfate [Feosol] 325 mg PO DAILY tab 02/10/18 Furosemide [Lasix] 20 mg PO DAILY #5 tab 02/10/18 Lactulose [Enulose] 20 gm PO DAILY PRN udc 02/10/18 Pantoprazole [Protonix EC Tab] 40 mg PO DAILY ect 02/10/18 Levetiracetam [Keppra] 500 mg PO BID #60 tablet 02/15/18 Omeprazole Magnesium [Prilosec Otc] 20 mg PO DAILY #30 tcp 02/16/18 Ondansetron ODT [Zofran ODT] 1 odt PO Q6 PRN #20 odt 02/16/18 Pantoprazole Sodium [Protonix] 40 mg PO DAILY #30 tablet. 02/17/18 - Allergies Allergies/Adverse Reactions: Allergies Allergy/AdvReac Type Severity Reaction Status Date / Time aspirin Allergy NAUSEA Verified 02/21/18 02:57 ibuprofen [From Motrin] Allergy NAUSEA Verified 02/21/18 02:57 naproxen Allergy RASH Verified 02/21/18 02:57 NSAIDS (Non-Steroidal Allergy NAUSEA Verified 02/21/18 02:57 Anti-Inflamma Review of Systems ROS Statement: Except As Marked, All Systems Reviewed And Found Negative Gastrointestinal: Positive for: Abdominal Pain Physical Exam - Reviewed Nursing Documentation Reviewed: Yes Vital Signs Reviewed: Yes - Physical Exam Appears: Positive for: No Acute Distress Head Exam: Positive for: ATRAUMATIC, NORMAL INSPECTION, NORMOCEPHALIC Skin: Positive for: Normal Color, Warm, Dry Eye Exam: Positive for: Normal appearance, EOMI, PERRL Neck: Positive for: Painless ROM Cardiovascular/Chest: Positive for: Regular Rate, Rhythm. Negative for: Murmur Respiratory: Positive for: Normal Breath Sounds. Negative for: Respiratory Distress Gastrointestinal/Abdominal: Positive for: Normal Exam, Soft. Negative for: Tenderness Extremity: Positive for: Normal ROM (upper and lower extremities). Negative for : Deformity, Swelling Neurologic/Psych: Positive for: Alert, Oriented - ECG O2 Sat by Pulse Oximetry: 99 (RA) Pulse Ox Interpretation: Normal Medical Decision Making Medical Decision Making: Time: 03:00 Initial Impression: Malingering Initial Plan: --Reevaluation -Patient is medically stable for discharge. Diagnosis of malingering and seizure disorder. ----- Scribe Attestation: Documented by Giovany Puri, acting as a scribe for Olaf Fernandez MD. Provider Scribe Attestation: All medical record entries made by the Scribe were at my direction and personally dictated by me. I have reviewed the chart and agree that the record accurately reflects my personal performance of the history, physical exam, medical decision making, and the department course for this patient. I have also personally directed, reviewed, and agree with the discharge instructions and disposition. Disposition - Clinical Impression Clinical Impression: Malingering, History of seizure - Disposition Disposition: Routine/Home Disposition Time: 06:00 Condition: STABLE Forms: [facility] (Palauan)
== END 2018-02-21 06:19 | disposition home or self-care (01) ==
LOC: H.ER 02:45
DX: Z76.5 Malingerer [conscious simulation] (principal)

== ENCOUNTER 2018-02-21 08:56 | Emergency (ER) | payer MEDICAID ==
[2018-02-21 08:57] VITALS: BMI 24.0
[2018-02-21 09:05] VITALS: O2SAT 98
--- NOTE | 2018-02-21 10:12 | ED PDOC ---
HPI: Seizure Time Seen by Provider: 02/21/18 09:16 Chief Complaint (Nursing): Upper Extremity Problem/Injury Chief Complaint (Provider): Seizure History Per: Patient, EMS History/Exam Limitations: no limitations Associated Symptoms: denies: Bit Tongue Additional Complaint(s): 52 year old male, frequently visits this ED with known EtOH abuse, seizures, and GI bleeds, presents to the ED via EMS after a witnessed seizure in [facility]. Patient denies loss of urine and tongue biting. He reports having a shoulder dislocation 1 month ago after seizure and states he may have had another one today. Patient denies trauma anywhere else and bleeding per rectum. He states he has an appointment with neurologist tomorrow for possible increase Keppra dosage. He has missed his last 3 doses of Keppra and should be taking medications twice a day. Patient thinks he had a seizure yesterday but did not come to the ED. He indicates bystanders called the ambulance which is why he came today. PMD: Chanelle Kaur Past Medical History Reviewed: Historical Data, Nursing Documentation, Vital Signs Vital Signs: Last Vital Signs Temp 98.5 F 02/21/18 09:04 Pulse 110 H 02/21/18 09:04 Resp 20 02/21/18 09:04 BP 117/67 02/21/18 09:04 Pulse Ox 98 02/21/18 11:41 - Medical History PMH: Anemia, Anxiety, Back Problems (herniated disc), Deep Vein Thrombosis, Fractures (rib, left shoulder, left hand 5th digit, humerus), Gastritis, Seizures, Chronic Pain (left shoulder) Denies: CHF, HIV, Hypercholesterolemia, Chronic Kidney Disease, Sexually Transmitted Disease - Surgical History Surgical History: Endoscopy - Family History Family History: States: Unknown Family Hx - Immunization History Hx Tetanus Toxoid Vaccination: Yes Hx Influenza Vaccination: Yes Hx Pneumococcal Vaccination: Yes - Home Medications Home Medications: Ambulatory Orders Medication Instructions Recorded levETIRAcetam [Keppra] 500 mg PO Q12H 10/25/17 Folic Acid 1 mg PO DAILY #30 tab 11/25/17 Thiamine [Vitamin B1 Tab] 100 mg PO DAILY #30 tab 11/25/17 Acetaminophen [Tylenol 325mg tab] 650 mg PO Q6 PRN tab 02/10/18 Ferrous Sulfate [Feosol] 325 mg PO DAILY tab 02/10/18 Furosemide [Lasix] 20 mg PO DAILY #5 tab 02/10/18 Lactulose [Enulose] 20 gm PO DAILY PRN udc 02/10/18 Pantoprazole [Protonix EC Tab] 40 mg PO DAILY ect 02/10/18 Levetiracetam [Keppra] 500 mg PO BID #60 tablet 02/15/18 Omeprazole Magnesium [Prilosec Otc] 20 mg PO DAILY #30 tcp 02/16/18 Ondansetron ODT [Zofran ODT] 1 odt PO Q6 PRN #20 odt 02/16/18 Pantoprazole Sodium [Protonix] 40 mg PO DAILY #30 tablet. 02/17/18 - Allergies Allergies/Adverse Reactions: Allergies Allergy/AdvReac Type Severity Reaction Status Date / Time aspirin Allergy NAUSEA Verified 02/21/18 02:57 ibuprofen [From Motrin] Allergy NAUSEA Verified 02/21/18 02:57 naproxen Allergy RASH Verified 02/21/18 02:57 NSAIDS (Non-Steroidal Allergy NAUSEA Verified 02/21/18 02:57 Anti-Inflamma Review of Systems ROS Statement: Except As Marked, All Systems Reviewed And Found Negative Constitutional: Negative for: Other (trauma) ENT: Negative for: Other (Tongue biting) Gastrointestinal: Negative for: Other (Bleeding per rectum) Neurological: Positive for: Seizures Physical Exam - Reviewed Nursing Documentation Reviewed: Yes Vital Signs Reviewed: Yes - Physical Exam Appears: Positive for: Non-toxic, No Acute Distress (slightly tremulous; smells of urine and appears disheveled) Head Exam: Positive for: ATRAUMATIC, NORMOCEPHALIC Skin: Positive for: Normal Color, Warm, Dry. Negative for: Cyanosis Eye Exam: Positive for: Normal appearance, PERRL. Negative for: Other ( Conjunctival pallor) ENT: Negative for: Other (laceration or ecchymosis to tongue) Neck: Positive for: Normal, Painless ROM Cardiovascular/Chest: Positive for: Regular Rate, Rhythm. Negative for: Murmur Respiratory: Positive for: Normal Breath Sounds. Negative for: Wheezing, Respiratory Distress Gastrointestinal/Abdominal: Positive for: Normal Exam, Soft. Negative for: Tenderness Extremity: Positive for: Tenderness (to palpation to right shoulder). Negative for: Calf Tenderness (Pain with calf squeeze), Swelling Neurologic/Psych: Positive for: Alert, Oriented. Negative for: Motor/Sensory Deficits - ECG O2 Sat by Pulse Oximetry: 98 (RA) Pulse Ox Interpretation: Normal Medical Decision Making Medical Decision Making: Initial Impression: Breakthrough seizure due to EtOH abuse, withdrawal, medication non compliance Initial Plan: Keppra 1000mg PO Librium 50mg PO to prevent withdrawals Tylenol 650mg PO for pain Zofran 8mg PO nausea X-ray right shoulder No signs of head trauma. Reevaluate patient. 11:35 No new injury. Old clavicle fracture discussed with patient. Patient is asymptomatic and pain has improved. 11:48 Patient without seizure activity in the ED. Chest X-ray shows no new injury and vitals are stable. Patient denies dizziness and weakness. Given librium to prevent withdrawal loaded with keppra. Tylenol given for shoulder pain. Patient tolerating PO. Patient will follow up with neurologist tomorrow Scribe Attestation: Documented by Carmine Rodriguez acting as a scribe for Haydee España MD. Provider Scribe Attestation: All medical record entries made by the Scribe were at my direction and personally dictated by me. I have reviewed the chart and agree that the record accurately reflects my personal performance of the history, physical exam, medical decision making, and the department course for this patient. I have also personally directed, reviewed, and agree with the discharge instructions and disposition. Disposition - Clinical Impression Clinical Impression: Broken clavicle, Alcohol abuse with intoxication, Seizure disorder - Patient ED Disposition Is Patient to be Admitted: No - Disposition Disposition: Routine/Home Disposition Time: 11:48 Condition: IMPROVED Additional Instructions: Follow up with neurologist regarding breakthrough seizures. Do not consume drugs or alcohol. Follow up with primary doctor and orthopedics as previously referred for clavicle fracture. Take Keppra twice per day as prescribed by primary doctors. Instructions: Clavicle Fracture, Seizures, Adult (DC), Clavicle Fracture (DC), Alcohol Abuse and Alcoholism (DC) Forms: [employer] ([place] Islander) Print Language: AZERBAIJANI
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
[2018-02-21 11:56] VITALS: BP 120/71; PULSE 91; RESP 16; TEMP 98.1
== END 2018-02-21 11:56 | disposition home or self-care (01) ==
LOC: H.ER 08:56
DX: F10.129 Alcohol abuse with intoxication, unspecified (principal); G40.909 Epilepsy, unspecified, not intractable, without status epilepticus; M25.511 Pain in right shoulder; W19.XXXA Unspecified fall, initial encounter; Y92.89 Other specified places as the place of occurrence of the external cause; Z91.14 Patient's other noncompliance with medication regimen

== ENCOUNTER 2018-02-21 17:30 | Emergency (ER) | payer MEDICAID ==
[2018-02-21 17:31] VITALS: BMI 24.0
[2018-02-21 17:41] VITALS: O2SAT 97
--- NOTE | 2018-02-21 18:00 | ED PDOC ---
HPI: Seizure Time Seen by Provider: 02/21/18 17:45 Chief Complaint (Nursing): Seizure Chief Complaint (Provider): Seizure History Per: Patient History/Exam Limitations: no limitations Recent Seizure Activity Began: Just Before Arrival Number Of Seizures: One Additional Complaint(s): 52 yo male, well known the the ER, with histoyr of alcohol abuse, GI bleeding and seizure disorder presents for evaluation of seizure. [place] Pt was seen twice today and received keppra at 11 am today. Pt alert and oriented with steady gait on arrival. Denies pain. Past Medical History Reviewed: Historical Data, Nursing Documentation, Vital Signs Vital Signs: Last Vital Signs Temp 98.1 F 02/21/18 17:35 Pulse 101 H 02/21/18 17:35 Resp 18 02/21/18 17:35 BP 103/58 L 02/21/18 17:35 Pulse Ox 97 02/21/18 18:00 - Medical History PMH: Anemia, Anxiety, Back Problems (herniated disc), Deep Vein Thrombosis, Fractures (rib, left shoulder, left hand 5th digit, humerus), Gastritis, Seizures, Chronic Pain (left shoulder) Denies: CHF, HIV, Hypercholesterolemia, Chronic Kidney Disease, Sexually Transmitted Disease - Surgical History Surgical History: Endoscopy - Family History Family History: States: Unknown Family Hx - Living Arrangements Living Arrangements: Other - Social History Current smoker - smoking cessation education provided: No Alcohol: None Drugs: Denies - Immunization History Hx Tetanus Toxoid Vaccination: Yes Hx Influenza Vaccination: Yes Hx Pneumococcal Vaccination: Yes - Home Medications Home Medications: Ambulatory Orders Medication Instructions Recorded levETIRAcetam [Keppra] 500 mg PO Q12H 10/25/17 Folic Acid 1 mg PO DAILY #30 tab 11/25/17 Thiamine [Vitamin B1 Tab] 100 mg PO DAILY #30 tab 11/25/17 Acetaminophen [Tylenol 325mg tab] 650 mg PO Q6 PRN tab 02/10/18 Ferrous Sulfate [Feosol] 325 mg PO DAILY tab 02/10/18 Furosemide [Lasix] 20 mg PO DAILY #5 tab 02/10/18 Lactulose [Enulose] 20 gm PO DAILY PRN udc 02/10/18 Pantoprazole [Protonix EC Tab] 40 mg PO DAILY ect 02/10/18 Levetiracetam [Keppra] 500 mg PO BID #60 tablet 02/15/18 Omeprazole Magnesium [Prilosec Otc] 20 mg PO DAILY #30 tcp 02/16/18 Ondansetron ODT [Zofran ODT] 1 odt PO Q6 PRN #20 odt 02/16/18 Pantoprazole Sodium [Protonix] 40 mg PO DAILY #30 tablet. 02/17/18 - Allergies Allergies/Adverse Reactions: Allergies Allergy/AdvReac Type Severity Reaction Status Date / Time aspirin Allergy NAUSEA Verified 02/21/18 02:57 ibuprofen [From Motrin] Allergy NAUSEA Verified 02/21/18 02:57 naproxen Allergy RASH Verified 02/21/18 02:57 NSAIDS (Non-Steroidal Allergy NAUSEA Verified 02/21/18 02:57 Anti-Inflamma Review of Systems ROS Statement: Except As Marked, All Systems Reviewed And Found Negative Constitutional: Negative for: Fever, Chills Neurological: Positive for: Seizures. Negative for: Altered Mental Status, Dizziness Physical Exam - Reviewed Nursing Documentation Reviewed: Yes Vital Signs Reviewed: Yes - Physical Exam Appears: Positive for: Well, Non-toxic, No Acute Distress Head Exam: Positive for: ATRAUMATIC, NORMAL INSPECTION, NORMOCEPHALIC Skin: Positive for: Normal Color, Warm, DRY Eye Exam: Positive for: Normal appearance ENT: Positive for: Normal ENT Inspection Neck: Positive for: Normal, Painless ROM Cardiovascular/Chest: Positive for: Regular Rate, Rhythm Respiratory: Positive for: Normal Breath Sounds. Negative for: Accessory Muscle Use, Respiratory Distress Back: Positive for: Normal Inspection Extremity: Positive for: Normal ROM Neurologic/Psych: Positive for: Alert, Oriented - ECG O2 Sat by Pulse Oximetry: 97 Medical Decision Making Medical Decision Making: Pt feels better on re-evaluation. Asking for food. Disposition - Clinical Impression Clinical Impression: Normal exam - Patient ED Disposition Is Patient to be Admitted: No Counseled Patient/Family Regarding: Diagnosis, Need For Followup - Disposition Referrals: [facility] [Outside] Disposition: Routine/Home Disposition Time: 18:18 Condition: STABLE Instructions: Seizures Forms: [employer] (Greek)
[2018-02-21 18:21] VITALS: BP 100/60; PULSE 93; RESP 16; TEMP 98.2
== END 2018-02-21 18:26 | disposition home or self-care (01) ==
LOC: H.ER 17:30
DX: Z00.00 Encounter for general adult medical examination without abnormal findings (principal)

== ENCOUNTER 2018-02-22 13:55 | Emergency (ER) | payer MEDICAID ==
[2018-02-22 13:56] VITALS: BMI 24.0
[2018-02-22 14:30] VITALS: BP 113/72; PULSE 105; RESP 16; TEMP 98.5; O2SAT 97
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
== END 2018-02-22 16:28 | disposition home or self-care (01) ==
LOC: H.ER 13:55
DX: M25.511 Pain in right shoulder (principal); Z86.718 Personal history of other venous thrombosis and embolism; G89.29 Other chronic pain; Z88.6 Allergy status to analgesic agent; Z59.0 Homelessness

== ENCOUNTER 2018-02-22 17:39 | Emergency (ER) | payer OTHER, MEDICAID ==
[2018-02-22 17:40] VITALS: BMI 24.0
[2018-02-22 17:56] VITALS: BP 141/69; PULSE 98; RESP 16; TEMP 98.4; O2SAT 96
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
== END 2018-02-22 21:47 | disposition home or self-care (01) ==
LOC: H.ER 17:39
DX: S49.91XA Unspecified injury of right shoulder and upper arm, initial encounter (principal); V49.59XA Passenger injured in collision with other motor vehicles in traffic accident, initial encounter; G89.29 Other chronic pain; Z86.718 Personal history of other venous thrombosis and embolism; Z88.6 Allergy status to analgesic agent

== ENCOUNTER 2018-02-23 02:45 | Emergency (ER) | payer MEDICAID, OTHER ==
[2018-02-23 02:47] VITALS: BMI 24.0
[2018-02-23 03:03] VITALS: TEMP 98.6
--- NOTE | 2018-02-23 03:17 | ED PDOC ---
HPI: General Adult Time Seen by Provider: 02/23/18 02:59 Chief Complaint (Nursing): Seizure Chief Complaint (Provider): Seizure History Per: Patient History/Exam Limitations: no limitations Onset/Duration Of Symptoms: Hrs Additional Complaint(s): Shreyas Sepulveda is a 52 year old male, well known to the ED and provider, who is presenting to the ED with malingering behavior. Patient was seen in this ED yesterday and has been in the waiting room since shortly after his discharge. He offers no medical complaints at this time and denies any chest pain, shortness of breath, fevers, or headaches. PMD: none provided Past Medical History Reviewed: Historical Data, Nursing Documentation, Vital Signs Vital Signs: Last Vital Signs Temp 98.6 F 02/23/18 02:59 Pulse 89 02/23/18 02:59 Resp 16 02/23/18 02:59 BP 129/82 02/23/18 02:59 Pulse Ox 98 02/23/18 03:20 - Medical History PMH: Anemia, Anxiety, Back Problems (herniated disc), Deep Vein Thrombosis, Fractures (rib, left shoulder, left hand 5th digit, humerus), Gastritis, Seizures, Chronic Pain (left shoulder) Denies: CHF, HIV, Hypercholesterolemia, Chronic Kidney Disease, Sexually Transmitted Disease - Surgical History Surgical History: Endoscopy - Family History Family History: States: Unknown Family Hx - Social History Current smoker - smoking cessation education provided: No Alcohol: None Drugs: Denies - Immunization History Hx Tetanus Toxoid Vaccination: Yes Hx Influenza Vaccination: Yes Hx Pneumococcal Vaccination: Yes - Home Medications Home Medications: Ambulatory Orders Medication Instructions Recorded levETIRAcetam [Keppra] 500 mg PO Q12H 10/25/17 Folic Acid 1 mg PO DAILY #30 tab 11/25/17 Thiamine [Vitamin B1 Tab] 100 mg PO DAILY #30 tab 11/25/17 Acetaminophen [Tylenol 325mg tab] 650 mg PO Q6 PRN tab 02/10/18 Ferrous Sulfate [Feosol] 325 mg PO DAILY tab 02/10/18 Furosemide [Lasix] 20 mg PO DAILY #5 tab 02/10/18 Lactulose [Enulose] 20 gm PO DAILY PRN udc 02/10/18 Pantoprazole [Protonix EC Tab] 40 mg PO DAILY ect 02/10/18 Levetiracetam [Keppra] 500 mg PO BID #60 tablet 02/15/18 Omeprazole Magnesium [Prilosec Otc] 20 mg PO DAILY #30 tcp 02/16/18 Ondansetron ODT [Zofran ODT] 1 odt PO Q6 PRN #20 odt 02/16/18 Pantoprazole Sodium [Protonix] 40 mg PO DAILY #30 tablet. 02/17/18 - Allergies Allergies/Adverse Reactions: Allergies Allergy/AdvReac Type Severity Reaction Status Date / Time aspirin Allergy NAUSEA Verified 02/22/18 14:26 ibuprofen [From Motrin] Allergy NAUSEA Verified 02/22/18 14:26 naproxen Allergy RASH Verified 02/22/18 14:26 NSAIDS (Non-Steroidal Allergy NAUSEA Verified 02/22/18 14:26 Anti-Inflamma Review of Systems ROS Statement: Except As Marked, All Systems Reviewed And Found Negative Constitutional: Negative for: Fever Cardiovascular: Negative for: Chest Pain Respiratory: Negative for: Shortness of Breath Neurological: Negative for: Headache Physical Exam - Reviewed Nursing Documentation Reviewed: Yes Vital Signs Reviewed: Yes - Physical Exam Appears: Positive for: Well, Non-toxic, No Acute Distress Head Exam: Positive for: ATRAUMATIC, NORMAL INSPECTION, NORMOCEPHALIC Skin: Positive for: Normal Color, Warm, DRY Eye Exam: Positive for: EOMI, Normal appearance, PERRL ENT: Positive for: Normal ENT Inspection Neck: Positive for: Normal, Painless ROM Cardiovascular/Chest: Positive for: Regular Rate, Rhythm. Negative for: Murmur Respiratory: Positive for: Normal Breath Sounds. Negative for: Respiratory Distress Gastrointestinal/Abdominal: Positive for: Normal Exam, Soft. Negative for: Tenderness Back: Positive for: Normal Inspection Extremity: Positive for: Normal ROM. Negative for: Deformity, Swelling Neurologic/Psych: Positive for: Alert, Oriented. Negative for: Motor/Sensory Deficits - ECG O2 Sat by Pulse Oximetry: 98 (RA) Pulse Ox Interpretation: Normal Medical Decision Making Medical Decision Making: Time: 3:20 Impression: 52 year old male with malingering behavior 5:55 Upon provider reevaluation patient is feeling better, is medically stable, and requires no further treatment in the ED at this time. Patient will be discharged. Counseling was provided and all questions were answered. Scribe Attestation: Documented by, Roxana Wang acting as a scribe for Olaf Fernandez MD. Provider Scribe Attestation: All medical record entries made by the Scribe were at my direction and personally dictated by me. I have reviewed the chart and agree that the record accurately reflects my personal performance of the history, physical exam, medical decision making, and the department course for this patient. I have also personally directed, reviewed, and agree with the discharge instructions and disposition. Disposition - Clinical Impression Clinical Impression: Malingering - Patient ED Disposition Is Patient to be Admitted: No - Disposition Disposition: Routine/Home Disposition Time: 05:55 Condition: STABLE Forms: [facility] (Sami)
[2018-02-23 06:43] VITALS: BP 127/76; PULSE 82; RESP 18; O2SAT 99
== END 2018-02-23 07:17 | disposition home or self-care (01) ==
LOC: H.ER 02:45
DX: Z76.5 Malingerer [conscious simulation] (principal)

== ENCOUNTER 2018-02-23 10:36 | Emergency (ER) | payer MEDICAID ==
[2018-02-23 10:36] VITALS: BMI 24.0
[2018-02-23 10:52] VITALS: PULSE 89; RESP 16; TEMP 97.9; O2SAT 99
[2018-02-23 10:54] VITALS: BP 149/74
--- NOTE | 2018-02-23 13:02 | ED PDOC ---
HPI: Seizure Time Seen by Provider: 02/23/18 11:09 Chief Complaint (Nursing): Seizure Chief Complaint (Provider): Seizure History Per: Patient History/Exam Limitations: intoxication Recent Seizure Activity Began: Unknown Length Of Seizures (Duration): Unknown Additional Complaint(s): 52yo male, with a history of epilepsy and alcohol abuse, presents to ER with a self-reported seizure this morning. Patient denies taking his Keppra dose today. Patient well known to ER staff and provider due to multiple, frequent visits almost daily. Patient seen in this ER at 6AM today for same, and was discharged home. Accucheck on arrival 93. No other complaints. Patient seemingly intoxicated upon arrival to ED. PMD: Gregoria Montaño Past Medical History Reviewed: Historical Data, Nursing Documentation, Vital Signs Vital Signs: Last Vital Signs Temp 97.9 F 02/23/18 10:51 Pulse 89 02/23/18 10:51 Resp 16 02/23/18 10:51 BP 149/74 02/23/18 10:51 Pulse Ox 99 02/23/18 14:38 - Medical History PMH: Anemia, Anxiety, Back Problems (herniated disc), Deep Vein Thrombosis, Fractures (rib, left shoulder, left hand 5th digit, humerus), Gastritis, Seizures, Chronic Pain (left shoulder) Other PMH: alcohol abuse - Surgical History Surgical History: Endoscopy - Family History Family History: States: No Known Family Hx - Social History Alcohol: > 2 Drinks/Day - Home Medications Home Medications: Ambulatory Orders Medication Instructions Recorded levETIRAcetam [Keppra] 500 mg PO Q12H 10/25/17 Folic Acid 1 mg PO DAILY #30 tab 11/25/17 Thiamine [Vitamin B1 Tab] 100 mg PO DAILY #30 tab 11/25/17 Acetaminophen [Tylenol 325mg tab] 650 mg PO Q6 PRN tab 02/10/18 Ferrous Sulfate [Feosol] 325 mg PO DAILY tab 02/10/18 Furosemide [Lasix] 20 mg PO DAILY #5 tab 02/10/18 Lactulose [Enulose] 20 gm PO DAILY PRN udc 02/10/18 Pantoprazole [Protonix EC Tab] 40 mg PO DAILY ect 02/10/18 Levetiracetam [Keppra] 500 mg PO BID #60 tablet 02/15/18 Omeprazole Magnesium [Prilosec Otc] 20 mg PO DAILY #30 tcp 02/16/18 Ondansetron ODT [Zofran ODT] 1 odt PO Q6 PRN #20 odt 02/16/18 Pantoprazole Sodium [Protonix] 40 mg PO DAILY #30 tablet. 02/17/18 Famotidine [Pepcid] 20 mg PO Q12 #20 tab 02/25/18 - Allergies Allergies/Adverse Reactions: Allergies Allergy/AdvReac Type Severity Reaction Status Date / Time aspirin Allergy NAUSEA Verified 02/24/18 19:46 ibuprofen [From Motrin] Allergy NAUSEA Verified 02/24/18 19:46 naproxen Allergy RASH Verified 02/24/18 19:46 NSAIDS (Non-Steroidal Allergy NAUSEA Verified 02/24/18 19:46 Anti-Inflamma Review of Systems ROS Statement: Except As Marked, All Systems Reviewed And Found Negative Neurological: Positive for: Seizures Physical Exam - Reviewed Nursing Documentation Reviewed: Yes Vital Signs Reviewed: Yes - Physical Exam Comments: GENERAL APPEARANCE: Patient is awake, alert, oriented x 3, in no acute distress. (+) odor of alcohol on breath SKIN: Warm, dry; (-) cyanosis; (-) rash. HEAD: Atraumatic, normocephalic EYES: EOMI, PERRL ENMT: Mucous membranes are moist. Airway patent, (-) stridor. NECK: Normal ROM. Supple. CHEST AND RESPIRATORY: Breath sounds equal bilaterally. HEART AND CARDIOVASCULAR: (-) irregularity ABDOMEN AND GI: Soft; (-) tenderness (-) guarding. EXTREMITIES: (-) deformity. NEURO: Gait steady, speech clear. EOMI and painless. Pupils equal and reactive. (-) facial asymmetry (-) aphasia - ECG O2 Sat by Pulse Oximetry: 99 (RA) Pulse Ox Interpretation: Normal Medical Decision Making Medical Decision Making: Impression: Seizure disorder, malingering Plan: * Keppra 500mg PO * Re-evaluation 1250 Patient was found to be smoking a cigarette in ED restroom. Ambulated from ED exam room to and from bathroom with a steady, unassisted gait. On exam, patient remains AAOx3, in no acute distress. Lungs CTA, cardiac RRR, abdomen soft, nontender, repeat neuro exam shows no focal findings. Vitals stable. Patient stable for discharge at this time. Patient observed in ED for 2+ hours with no evidence of neurological deterioration. Lab/Diagnostic results d/w with the patient in great detail. Diagnosis of malingering, seizure disorder d/w patient. Based on history, exam, and diagnostic results, plan will be for outpatient follow up. Patient instructed to follow up with PMD / referral provided / the clinic in 1- 2 days without fail. Advised to take medication as prescribed. Return to the emergency room at any time for any new or worsening symptoms. Patient states he agrees with and understandings discharge instructions. States that he agrees with the plan and disposition. Verbalized and repeated discharge instructions and plan. I have given the patient opportunity to ask any additional questions. Scribe Attestation: Documented by Kajal Chakraborty, acting as a scribe for STEPHAN Kearney. Provider Scribe Attestation: All medical record entries made by the Scribe were at my direction and personally dictated by me. I have reviewed the chart and agree that the record accurately reflects my personal performance of the history, physical exam, medical decision making, and the department course for this patient. I have also personally directed, reviewed, and agree with the discharge instructions and disposition. Disposition - Clinical Impression Clinical Impression: Seizure disorder, Malingering - Patient ED Disposition Is Patient to be Admitted: No Counseled Patient/Family Regarding: Studies Performed, Diagnosis, Need For Followup - Disposition Referrals: Chanelle Rowe MD [Staff Provider] - Disposition: Routine/Home Disposition Time: 12:56 Condition: FAIR Additional Instructions: The emergency medical care you received today was directed towards your acute symptoms. If you were prescribed medication, please fill it at the pharmacy and take it as directed. It may take several days for your symptoms to resolve. Return to emergency department if your symptoms worsen, do not improve, or if you have any other problems. Please contact your doctor / referred provider / clinic in 2 days for further evaluation. The treatement in the emergency department cannot replace ongoing medical care by a primary doctor outside of the emergency department. Instructions: Epilepsy in Adults, Seizures, Adult (DC) Forms: [facility] (German) Print Language: MONGOLIAN - POA Present On Arrival: None
== END 2018-02-23 13:10 | disposition home or self-care (01) ==
LOC: H.ER 10:36
DX: G40.909 Epilepsy, unspecified, not intractable, without status epilepticus (principal); Z76.5 Malingerer [conscious simulation]

== ENCOUNTER 2018-02-27 13:51 | Emergency (ER) | payer MEDICAID ==
[2018-02-27 13:51] VITALS: BMI 24.0
--- NOTE | 2018-02-27 14:40 | ED PDOC ---
Upper Extremity Pain/Injury Time Seen by Provider: 02/27/18 14:25 Chief Complaint (Nursing): Trauma Chief Complaint (Provider): Shoulder pain History Per: Patient History/Exam Limitations: no limitations Onset/Duration Of Symptoms: Mins (prior to arrival) Current Symptoms Are (Timing): Still Present Quality: "Pain" Additional Complaint(s): 52 year old male with a history of seizures presents to the ED with right shoulder pain s/p seizure 1 hour prior to arrival. Patient reports falling during his seizure earlier today. He is now requesting a sandwich. Denies other complaints. PMD: Dr. Rowe Past Medical History Reviewed: Historical Data, Nursing Documentation, Vital Signs Vital Signs: Last Vital Signs Temp 97.9 F 02/27/18 13:59 Pulse 81 02/27/18 13:59 Resp 18 02/27/18 13:59 BP 114/63 02/27/18 13:59 Pulse Ox 98 02/27/18 13:59 - Medical History PMH: Anemia, Anxiety, Back Problems (herniated disc), Deep Vein Thrombosis, Fractures (rib, left shoulder, left hand 5th digit, humerus), Gastritis, Gall Bladder Disease (Cholelithiasis), Pancreatitis, Seizures, Chronic Pain (left shoulder) Denies: CHF, HIV, Hypercholesterolemia, Chronic Kidney Disease, Sexually Transmitted Disease - Surgical History Surgical History: Endoscopy - Family History Family History: States: Unknown Family Hx - Social History Alcohol: > 2 Drinks/Day - Immunization History Hx Tetanus Toxoid Vaccination: Yes Hx Influenza Vaccination: Yes Hx Pneumococcal Vaccination: Yes - Home Medications Home Medications: Ambulatory Orders Medication Instructions Recorded levETIRAcetam [Keppra] 500 mg PO Q12H 10/25/17 Folic Acid 1 mg PO DAILY #30 tab 11/25/17 Thiamine [Vitamin B1 Tab] 100 mg PO DAILY #30 tab 11/25/17 Acetaminophen [Tylenol 325mg tab] 650 mg PO Q6 PRN tab 02/10/18 Ferrous Sulfate [Feosol] 325 mg PO DAILY tab 02/10/18 Furosemide [Lasix] 20 mg PO DAILY #5 tab 02/10/18 Lactulose [Enulose] 20 gm PO DAILY PRN udc 02/10/18 Pantoprazole [Protonix EC Tab] 40 mg PO DAILY ect 02/10/18 Levetiracetam [Keppra] 500 mg PO BID #60 tablet 02/15/18 Omeprazole Magnesium [Prilosec Otc] 20 mg PO DAILY #30 tcp 02/16/18 Ondansetron ODT [Zofran ODT] 1 odt PO Q6 PRN #20 odt 02/16/18 Pantoprazole Sodium [Protonix] 40 mg PO DAILY #30 tablet. 02/17/18 Famotidine [Pepcid] 20 mg PO Q12 #20 tab 02/25/18 - Allergies Allergies/Adverse Reactions: Allergies Allergy/AdvReac Type Severity Reaction Status Date / Time aspirin Allergy NAUSEA Verified 02/26/18 18:34 ibuprofen [From Motrin] Allergy NAUSEA Verified 02/26/18 18:34 naproxen Allergy RASH Verified 02/26/18 18:34 NSAIDS (Non-Steroidal Allergy NAUSEA Verified 02/26/18 18:34 Anti-Inflamma Review of Systems ROS Statement: Except As Marked, All Systems Reviewed And Found Negative Musculoskeletal: Positive for: Shoulder Pain (right) Physical Exam - Reviewed Nursing Documentation Reviewed: Yes Vital Signs Reviewed: Yes - Physical Exam Appears: Positive for: Non-toxic, No Acute Distress Head Exam: Positive for: ATRAUMATIC, NORMAL INSPECTION, NORMOCEPHALIC Skin: Positive for: Normal Color, Warm, Dry Eye Exam: Positive for: EOMI, Normal appearance, PERRL Neck: Positive for: Normal, Painless ROM, Supple Cardiovascular/Chest: Positive for: Regular Rate, Rhythm. Negative for: Murmur Respiratory: Positive for: Normal Breath Sounds. Negative for: Wheezing, Respiratory Distress Gastrointestinal/Abdominal: Positive for: Normal Exam, Soft. Negative for: Tenderness Back: Positive for: Normal Inspection. Negative for: L CVA Tenderness, R CVA Tenderness Extremity: Positive for: Tenderness (minimal tenderness noted to AC joint of right shoulder ). Negative for: Deformity (or ecchymosis ) Neurologic/Psych: Positive for: Alert, Oriented (x 3). Negative for: Motor/ Sensory Deficits - ECG O2 Sat by Pulse Oximetry: 98 (RA) Pulse Ox Interpretation: Normal - Progress ED Course And Treament: XRY OF SHOULDER RIGHT IMPRESSION: Re- demonstrated is a comminuted slightly displaced fracture of the distal right clavicle Medical Decision Making Medical Decision Makin:41 Initial Plan: --right shoulder x-ray Scribe Attestation: Documented by Gloria Moran, acting as a scribe for Ceci Rangel PA-C Provider Scribe Attestation: All medical record entries made by the Scribe were at my direction and personally dictated by me. I have reviewed the chart and agree that the record accurately reflects my personal performance of the history, physical exam, medical decision making, and the department course for this patient. I have also personally directed, reviewed, and agree with the discharge instructions and disposition. Disposition - Clinical Impression Clinical Impression: Clavicular fracture - Patient ED Disposition Is Patient to be Admitted: No - Disposition Referrals: Albaro Huitron MD [Staff Provider] - Disposition: Routine/Home Disposition Time: 16:20 Condition: FAIR Instructions: Clavicle Fracture (DC)
--- NOTE | 2018-02-27 15:56 | RAD ---
Date of service: 02/27/2018 PROCEDURE: Radiographs of the Right Shoulder HISTORY: SHOULDER RIGHT INJURY COMPARISON: Comparison made with radiographs 02/22/2018. FINDINGS: BONES: Re- demonstrated is a comminuted slightly displaced fracture of the distal right clavicle JOINTS: Normal. Glenohumeral and acromioclavicular joints preserved. No osteoarthritis. SOFT TISSUES: Normal. OTHER FINDINGS: None. IMPRESSION: Re- demonstrated is a comminuted slightly displaced fracture of the distal right clavicle
[2018-02-27 16:31] VITALS: BP 129/76; PULSE 110; RESP 16; TEMP 98
[2018-02-27 21:56] VITALS: O2SAT 98
== END 2018-02-27 16:31 | disposition home or self-care (01) ==
LOC: H.ER 13:51
DX: G40.909 Epilepsy, unspecified, not intractable, without status epilepticus (principal); S42.031A Displaced fracture of lateral end of right clavicle, initial encounter for closed fracture; W19.XXXA Unspecified fall, initial encounter; Y92.89 Other specified places as the place of occurrence of the external cause

== ENCOUNTER 2018-02-27 16:59 | Emergency (ER) | payer MEDICAID ==
[2018-02-27 16:59] VITALS: BMI 24.0
[2018-02-27 17:31] VITALS: BP 133/80; PULSE 99; RESP 16; TEMP 98.3; O2SAT 100
--- NOTE | 2018-02-27 17:43 | ED PDOC ---
HPI: General Adult Time Seen by Provider: 02/27/18 17:00 Chief Complaint (Nursing): Seizure Chief Complaint (Provider): "seizure" History Per: Patient History/Exam Limitations: no limitations Onset/Duration Of Symptoms: Mins Have you had recent travel within the past 21 days to any of the following countries: [place], [place], [place] or [place]?: No Additional Complaint(s): 52 yo male well known to Er presents for evaluation of "seizure". Pt states he was at his [id number] house. PT was seen in park between current visit and previous visit. Past Medical History Reviewed: Historical Data, Nursing Documentation, Vital Signs Vital Signs: Last Vital Signs Temp 98.3 F 02/27/18 17:25 Pulse 99 H 02/27/18 17:25 Resp 16 02/27/18 17:25 BP 133/80 02/27/18 17:25 Pulse Ox 100 02/27/18 17:25 - Medical History PMH: Anemia, Anxiety, Back Problems (herniated disc), Deep Vein Thrombosis, Fractures (rib, left shoulder, left hand 5th digit, humerus), Gastritis, Gall Bladder Disease (Cholelithiasis), Pancreatitis, Seizures, Chronic Pain (left shoulder) Denies: CHF, HIV, Hypercholesterolemia, Chronic Kidney Disease, Sexually Transmitted Disease - Surgical History Surgical History: Endoscopy - Family History Family History: States: Unknown Family Hx - Immunization History Hx Tetanus Toxoid Vaccination: Yes Hx Influenza Vaccination: Yes Hx Pneumococcal Vaccination: Yes - Home Medications Home Medications: Ambulatory Orders Medication Instructions Recorded levETIRAcetam [Keppra] 500 mg PO Q12H 10/25/17 Folic Acid 1 mg PO DAILY #30 tab 11/25/17 Thiamine [Vitamin B1 Tab] 100 mg PO DAILY #30 tab 11/25/17 Acetaminophen [Tylenol 325mg tab] 650 mg PO Q6 PRN tab 02/10/18 Ferrous Sulfate [Feosol] 325 mg PO DAILY tab 02/10/18 Furosemide [Lasix] 20 mg PO DAILY #5 tab 02/10/18 Lactulose [Enulose] 20 gm PO DAILY PRN udc 02/10/18 Pantoprazole [Protonix EC Tab] 40 mg PO DAILY ect 02/10/18 Levetiracetam [Keppra] 500 mg PO BID #60 tablet 08/28/18 Omeprazole Magnesium [Prilosec Otc] 20 mg PO DAILY #30 tcp 02/16/18 Ondansetron ODT [Zofran ODT] 1 odt PO Q6 PRN #20 odt 02/16/18 Pantoprazole Sodium [Protonix] 40 mg PO DAILY #30 tablet. 02/17/18 Famotidine [Pepcid] 20 mg PO Q12 #20 tab 02/25/18 - Allergies Allergies/Adverse Reactions: Allergies Allergy/AdvReac Type Severity Reaction Status Date / Time aspirin Allergy NAUSEA Verified 02/26/18 18:34 ibuprofen [From Motrin] Allergy NAUSEA Verified 02/26/18 18:34 naproxen Allergy RASH Verified 02/26/18 18:34 NSAIDS (Non-Steroidal Allergy NAUSEA Verified 02/26/18 18:34 Anti-Inflamma Review of Systems ROS Statement: Except As Marked, All Systems Reviewed And Found Negative Constitutional: Negative for: Fever, Chills Neurological: Positive for: Seizures. Negative for: Altered Mental Status, Dizziness Physical Exam - Reviewed Nursing Documentation Reviewed: Yes Vital Signs Reviewed: Yes - Physical Exam Appears: Positive for: Well, Non-toxic, No Acute Distress Head Exam: Positive for: ATRAUMATIC, NORMAL INSPECTION, NORMOCEPHALIC Skin: Positive for: Normal Color, Warm, DRY Eye Exam: Positive for: Normal appearance ENT: Positive for: Normal ENT Inspection Neck: Positive for: Normal, Painless ROM Cardiovascular/Chest: Positive for: Regular Rate, Rhythm Respiratory: Positive for: Normal Breath Sounds. Negative for: Accessory Muscle Use, Respiratory Distress Back: Positive for: Normal Inspection Extremity: Positive for: Normal ROM Neurologic/Psych: Positive for: Alert, strategy consultant II-XII, Oriented, Gait. Negative for : Aphasia, Facial Droop - ECG O2 Sat by Pulse Oximetry: 100 Disposition - Clinical Impression Clinical Impression: Malingerer [conscious simulation] - Patient ED Disposition Is Patient to be Admitted: No Counseled Patient/Family Regarding: Diagnosis, Need For Followup - Disposition Referrals: [facility] [Outside] Disposition: Routine/Home Disposition Time: 17:38 Condition: STABLE
== END 2018-02-27 17:52 | disposition home or self-care (01) ==
LOC: H.ER 16:59
DX: Z76.5 Malingerer [conscious simulation] (principal)

== ENCOUNTER 2018-02-27 20:44 | Emergency (ER) | payer MEDICAID ==
[2018-02-27 20:44] VITALS: BMI 24.0
[2018-02-27 20:53] VITALS: BP 140/62; PULSE 82; RESP 18; TEMP 98.5; O2SAT 100
--- NOTE | 2018-02-27 21:17 | ED PDOC ---
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 10 minutes later her took his Keppra then the ambulance picked him up. Denies oral injury, incontinence, headache, pain. Past Medical History Reviewed: Historical Data, Nursing Documentation, Vital Signs Vital Signs: Last Vital Signs Temp 98.5 F 02/27/18 20:50 Pulse 82 02/27/18 20:50 Resp 18 02/27/18 20:50 BP 140/62 02/27/18 20:50 Pulse Ox 100 02/27/18 21:17 - Medical History PMH: Anemia, Anxiety, Back Problems (herniated disc), Deep Vein Thrombosis, Fractures (rib, left shoulder, left hand 5th digit, humerus), Gastritis, Gall Bladder Disease (Cholelithiasis), Pancreatitis, Seizures, Chronic Pain (left shoulder) Denies: CHF, HIV, Hypercholesterolemia, Chronic Kidney Disease, Sexually Transmitted Disease - Surgical History Surgical History: Endoscopy - Family History Family History: States: No Known Family Hx - Immunization History Hx Tetanus Toxoid Vaccination: Yes Hx Influenza Vaccination: Yes Hx Pneumococcal Vaccination: Yes - Home Medications Home Medications: Ambulatory Orders Medication Instructions Recorded levETIRAcetam [Keppra] 500 mg PO Q12H 10/25/17 Folic Acid 1 mg PO DAILY #30 tab 11/25/17 Thiamine [Vitamin B1 Tab] 100 mg PO DAILY #30 tab 11/25/17 Acetaminophen [Tylenol 325mg tab] 650 mg PO Q6 PRN tab 02/10/18 Ferrous Sulfate [Feosol] 325 mg PO DAILY tab 02/10/18 Furosemide [Lasix] 20 mg PO DAILY #5 tab 02/10/18 Lactulose [Enulose] 20 gm PO DAILY PRN udc 02/10/18 Pantoprazole [Protonix EC Tab] 40 mg PO DAILY ect 02/10/18 Levetiracetam [Keppra] 500 mg PO BID #60 tablet 02/15/18 Omeprazole Magnesium [Prilosec Otc] 20 mg PO DAILY #30 tcp 02/16/18 Ondansetron ODT [Zofran ODT] 1 odt PO Q6 PRN #20 odt 02/16/18 Pantoprazole Sodium [Protonix] 40 mg PO DAILY #30 tablet. 02/17/18 Famotidine [Pepcid] 20 mg PO Q12 #20 tab 02/25/18 - Allergies Allergies/Adverse Reactions: Allergies Allergy/AdvReac Type Severity Reaction Status Date / Time aspirin Allergy NAUSEA Verified 02/26/18 18:34 ibuprofen [From Motrin] Allergy NAUSEA Verified 02/26/18 18:34 naproxen Allergy RASH Verified 02/26/18 18:34 NSAIDS (Non-Steroidal Allergy NAUSEA Verified 02/26/18 18:34 Anti-Inflamma Review of Systems ROS Statement: Except As Marked, All Systems Reviewed And Found Negative Physical Exam - Reviewed Nursing Documentation Reviewed: Yes Vital Signs Reviewed: Yes - Physical Exam Appears: Positive for: Well, Non-toxic, No Acute Distress Head Exam: Positive for: ATRAUMATIC, NORMAL INSPECTION, NORMOCEPHALIC Skin: Positive for: Normal Color, Warm. Negative for: Rash Eye Exam: Positive for: EOMI, Normal appearance, PERRL ENT: Positive for: Normal ENT Inspection Neck: Positive for: Normal, Painless ROM Cardiovascular/Chest: Positive for: Regular Rate, Rhythm Respiratory: Positive for: CNT, Normal Breath Sounds Gastrointestinal/Abdominal: Positive for: Normal Exam, Soft. Negative for: Tenderness Back: Positive for: Normal Inspection Extremity: Positive for: Normal ROM Neurologic/Psych: Positive for: Alert, Oriented (x3), Gait (steady, unassisted) . Negative for: Aphasia, Facial Droop - ECG O2 Sat by Pulse Oximetry: 100 - Progress ED Course And Treament: Requesting food. Disposition - Clinical Impression Clinical Impression: Malingering - Patient ED Disposition Is Patient to be Admitted: No - Disposition Disposition: Routine/Home Disposition Time: 21:16 Condition: STABLE Additional Instructions: KINDRA MARTINI, thank you for letting us take care of you today. Your provider was Brown Maloney MD and you were treated for SEIZURE. The emergency medical care you received today was directed at your acute symptoms. If you were prescribed any medication, please fill it and take as directed. It may take several days for your symptoms to resolve. Return to the Emergency Department if your symptoms worsen, do not improve, or if you have any other problems. Please contact your doctor or call one of the physicians/clinics you have been referred to that are listed on the Patient Visit Information form that is included in your discharge packet. Bring any paperwork you were given at discharge with you along with any medications you are taking to your follow up visit. Our treatment cannot replace ongoing medical care by a primary care provider outside of the emergency department. Thank you for allowing the [facility] team to be part of your care today. If you had an X-Ray or CT scan: A Radiologist will review the ED reading if any change in treatment is needed we will contact you. If you had a blood, urine, or wound culture: It will take several days for the results, if any change in treatment is needed we will contact you. If you had an STI test: It will take 48 hours for the results. Please call after 1 week if you have not heard back. Forms: [employer] (Hebrew)
== END 2018-02-28 06:33 | disposition home or self-care (01) ==
LOC: H.ER 20:44
DX: Z76.5 Malingerer [conscious simulation] (principal)

== ENCOUNTER 2018-02-28 20:16 | Emergency (ER) | payer MEDICAID, OTHER ==
[2018-02-28 20:16] VITALS: BMI 24.0
[2018-02-28 20:22] VITALS: RESP 14; TEMP 98.2; O2SAT 98
--- NOTE | 2018-02-28 21:03 | ED PDOC ---
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 EMS was called to remove him from someones property. Patient reports he was here twice yesterday for similar complaints. He takes Kepra every day, but cannot remember when his last seizure was. Patient also has chronic shoulder pain after he fell x2 months ago. Patient has no acute complaints at this time. PMD: [facility] Past Medical History Reviewed: Historical Data, Nursing Documentation, Vital Signs Vital Signs: Last Vital Signs Temp 98.2 F 02/28/18 20:20 Pulse 80 02/28/18 20:20 Resp 14 02/28/18 20:20 BP 118/56 L 02/28/18 20:20 Pulse Ox 98 03/01/18 03:17 - Medical History PMH: Anemia, Anxiety, Back Problems (herniated disc), Deep Vein Thrombosis, Fractures (rib, left shoulder, left hand 5th digit, humerus), Gastritis, Gall Bladder Disease (Cholelithiasis), Pancreatitis, Seizures, Chronic Pain (left shoulder) Denies: CHF, HIV, Hypercholesterolemia, Chronic Kidney Disease, Sexually Transmitted Disease - Surgical History Surgical History: Endoscopy - Family History Family History: States: Unknown Family Hx - Immunization History Hx Tetanus Toxoid Vaccination: Yes Hx Influenza Vaccination: Yes Hx Pneumococcal Vaccination: Yes - Home Medications Home Medications: Ambulatory Orders Medication Instructions Recorded levETIRAcetam [Keppra] 500 mg PO Q12H 10/25/17 Pantoprazole [Protonix EC Tab] 40 mg PO DAILY ect 02/10/18 - Allergies Allergies/Adverse Reactions: Allergies Allergy/AdvReac Type Severity Reaction Status Date / Time aspirin Allergy NAUSEA Verified 02/28/18 20:19 ibuprofen [From Motrin] Allergy NAUSEA Verified 02/28/18 20:19 naproxen Allergy RASH Verified 02/28/18 20:19 NSAIDS (Non-Steroidal Allergy NAUSEA Verified 02/28/18 20:19 Anti-Inflamma Review of Systems ROS Statement: Except As Marked, All Systems Reviewed And Found Negative Musculoskeletal: Positive for: Shoulder Pain Physical Exam - Reviewed Nursing Documentation Reviewed: Yes Vital Signs Reviewed: Yes - Physical Exam Appears: Positive for: Well, No Acute Distress Head Exam: Positive for: ATRAUMATIC, NORMOCEPHALIC Skin: Positive for: Normal Color, Warm, Dry Eye Exam: Positive for: Normal appearance Neck: Positive for: Normal Cardiovascular/Chest: Positive for: Regular Rate, Rhythm. Negative for: Murmur Respiratory: Positive for: Normal Breath Sounds. Negative for: Respiratory Distress Gastrointestinal/Abdominal: Positive for: Normal Exam, Soft. Negative for: Tenderness Extremity: Positive for: Normal ROM (upper and lower). Negative for: Pedal Edema, Deformity Neurologic/Psych: Positive for: Alert, Oriented (x3) - ECG O2 Sat by Pulse Oximetry: 98 (RA) Pulse Ox Interpretation: Normal Medical Decision Making Medical Decision Making: Time: 2041 Plan: --EKG --Kepra --Glucose Scribe Attestation: Documented by Sejal Rodriguez, acting as a scribe for Cathy Salazar MD Provider Scribe Attestation: All medical record entries made by the Scribe were at my direction and personally dictated by me. I have reviewed the chart and agree that the record accurately reflects my personal performance of the history, physical exam, medical decision making, and the department course for this patient. I have also personally directed, reviewed, and agree with the discharge instructions and disposition. Disposition - Clinical Impression Clinical Impression: Malingering, Seizures - Patient ED Disposition Is Patient to be Admitted: No Doctor Will See Patient In The: Office Counseled Patient/Family Regarding: Studies Performed, Diagnosis, Need For Followup - Disposition Referrals: [facility] [Outside] Disposition: Routine/Home Disposition Time: 22:00 Condition: GOOD Additional Instructions: KINDRA MARTINI, thank you for letting us take care of you today. Your provider was Cathy Salazar MD and you were treated for POSS SEIZURE. The emergency medical care you received today was directed at your acute symptoms. If you were prescribed any medication, please fill it and take as directed. It may take several days for your symptoms to resolve. Return to the Emergency Department if your symptoms worsen, do not improve, or if you have any other problems. Please contact your doctor or call one of the physicians/clinics you have been referred to that are listed on the Patient Visit Information form that is included in your discharge packet. Bring any paperwork you were given at discharge with you along with any medications you are taking to your follow up visit. Our treatment cannot replace ongoing medical care by a primary care provider outside of the emergency department. Thank you for allowing the [facility] team to be part of your care today. Instructions: Seizures
[2018-03-01 06:28] VITALS: BP 120/85; PULSE 75
--- NOTE | 2018-03-01 07:31 | CARD ---
APPROVED REPORT Date of service: 02/28/2018 EKG Measurement Heart [id number] <Conclusion> Normal sinus rhythm Cannot rule out Anterior infarct, age undetermined Abnormal ECG
== END 2018-03-01 06:26 | disposition home or self-care (01) ==
LOC: H.ER 20:16
DX: R56.9 Unspecified convulsions (principal); Z76.5 Malingerer [conscious simulation]; I10 Essential (primary) hypertension; Z86.718 Personal history of other venous thrombosis and embolism

== ENCOUNTER 2018-03-01 20:45 | Emergency (ER) | payer MEDICAID ==
[2018-03-01 20:45] VITALS: BMI 24.0
[2018-03-01 20:52] VITALS: RESP 20; O2SAT 98
[2018-03-01] MEDS ORDERED: Sodium Chloride 0.9% 1,000 ML IV STA (20:57)
[2018-03-01 21:35] LABS: BASO % 0.5 % (0.0-2.0); EOS # 0.1 K/uL (0.0-0.7); EOS % 4.7 % (0.0-4.0); HEMOGLOBIN 8.9 g/dL (12.0-18.0); LYMPH # 0.4 K/uL (1.0-4.3); LYMPH % 13.4 % (20.0-40.0); MEAN CELL VOLUME 86.3 fl (80.0-94.0); MEAN CORPUSCULAR HEMOGLOBIN 28.3 pg (27.0-31.0); MEAN CORPUSCULAR HGB CONC 32.8 g/dL (33.0-37.0); MEAN PLATELET VOLUME 7.6 fl (7.2-11.7); MONO # 0.3 K/uL (0.0-0.8); MONO % 10.5 % (0.0-10.0); NEUT # 2.1 K/uL (1.8-7.0); NEUT % 70.9 % (50.0-75.0); RBC 3.16 Mil/uL (4.40-5.90); RED CELL DISTRIBUTION WIDTH 20.5 % (11.5-14.5)
[2018-03-01 21:46] LABS: INR 1.5; PROTHROMBIN TIME 16.5 Seconds (9.8-13.1)
--- NOTE | 2018-03-01 21:47 | ED PDOC ---
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 Patient reports he had an unwitnessed seizure but does not exhibit any postictal symptoms. No further complaints. PMD: Dr. Son Past Medical History Reviewed: Historical Data, Nursing Documentation, Vital Signs Vital Signs: Last Vital Signs Temp 99.5 F 03/02/18 06:02 Pulse 85 03/02/18 06:02 Resp 20 03/01/18 20:49 BP 118/77 03/02/18 06:02 Pulse Ox 98 03/01/18 21:49 - Medical History PMH: Anemia, Anxiety, Back Problems (herniated disc), Deep Vein Thrombosis, Fractures (rib, left shoulder, left hand 5th digit, humerus), Gastritis, Gall Bladder Disease (Cholelithiasis), Pancreatitis, Seizures, Chronic Pain (left shoulder) Denies: CHF, HIV, Hypercholesterolemia, Chronic Kidney Disease, Sexually Transmitted Disease - Surgical History Surgical History: Endoscopy - Family History Family History: States: Unknown Family Hx - Immunization History Hx Tetanus Toxoid Vaccination: Yes Hx Influenza Vaccination: Yes Hx Pneumococcal Vaccination: Yes - Home Medications Home Medications: Ambulatory Orders Medication Instructions Recorded levETIRAcetam [Keppra] 500 mg PO Q12H 10/25/17 Pantoprazole [Protonix EC Tab] 40 mg PO DAILY ect 02/10/18 - Allergies Allergies/Adverse Reactions: Allergies Allergy/AdvReac Type Severity Reaction Status Date / Time aspirin Allergy NAUSEA Verified 03/01/18 20:49 ibuprofen [From Motrin] Allergy NAUSEA Verified 03/01/18 20:49 naproxen Allergy RASH Verified 03/01/18 20:49 NSAIDS (Non-Steroidal Allergy NAUSEA Verified 03/01/18 20:49 Anti-Inflamma Review of Systems ROS Statement: Except As Marked, All Systems Reviewed And Found Negative Constitutional: Positive for: Fever Neurological: Positive for: Seizures Physical Exam - Reviewed Nursing Documentation Reviewed: Yes Vital Signs Reviewed: Yes - Physical Exam Appears: Positive for: Non-toxic, No Acute Distress Head Exam: Positive for: ATRAUMATIC, NORMOCEPHALIC Skin: Positive for: Normal Color, Warm, Dry Eye Exam: Positive for: Normal appearance, EOMI, PERRL Neck: Positive for: Normal Cardiovascular/Chest: Positive for: Regular Rate, Rhythm. Negative for: Murmur Respiratory: Positive for: Normal Breath Sounds. Negative for: Respiratory Distress Gastrointestinal/Abdominal: Positive for: Normal Exam, Soft. Negative for: Tenderness Back: Positive for: Normal Inspection Extremity: Positive for: Normal ROM (upper and lower). Negative for: Pedal Edema, Deformity Neurologic/Psych: Positive for: Alert, Oriented (x3). Negative for: Motor/ Sensory Deficits - Laboratory Results Result Diagrams: 03/01/18 21:29 03/01/18 21:29 - ECG O2 Sat by Pulse Oximetry: 98 (RA) Pulse Ox Interpretation: Normal Medical Decision Making Medical Decision Making: Time: 2055 Plan: --labs 6:16 Labs were reviewed with no clinically significant abnormalities. Patient remained seizure free while in the ED. Upon provider evaluation patient is medically stable, and requires no further treatment in the ED at this time. Patient will be discharged home. Counseling was provided and all questions were answered regarding diagnosis and need for follow up with PMD. There is agreement to discharge plan. Return if symptoms persist or worsen. Scribe Attestation: Documented by Sejal Rodriguez, acting as a scribe for Olaf Fernandez MD Provider Scribe Attestation: All medical record entries made by the Scribe were at my direction and personally dictated by me. I have reviewed the chart and agree that the record accurately reflects my personal performance of the history, physical exam, medical decision making, and the department course for this patient. I have also personally directed, reviewed, and agree with the discharge instructions and disposition. Disposition - Clinical Impression Clinical Impression: Viral illness, Seizure - Patient ED Disposition Is Patient to be Admitted: No - Disposition Disposition: Routine/Home Disposition Time: 06:18 Condition: STABLE Instructions: Seizures, Viral Syndrome (DC) Forms: [employer] (Bulgarian)
[2018-03-01 21:49] LABS: PARTIAL THROMBOPLASTIN TIME 37.5 Seconds (25.6-37.1)
[2018-03-01 21:54] LABS: ALB/GLOB RATIO 0.8 (1.0-2.1); ALT/SGPT 45 U/L (21-72); AST/SGOT 104 U/L (17-59); BLOOD UREA NITROGEN 14 mg/dl (9-20); CALCIUM 8.1 mg/dL (8.4-10.2); GFR NON-AFRICAN AMERICAN > 60
[2018-03-02 05:21] LABS: SQUAMOUS EPITHIAL < 1 /hpf (0-5); URINE BACTERIA RARE (<OCC); URINE BILIRUBIN NEGATIVE (NEGATIVE); URINE BLOOD NEGATIVE (NEGATIVE); URINE CLARITY SLIGHTY-CLOUDY (Clear); URINE COLOR YELLOW (YELLOW); URINE GLUCOSE (UA) NEG (Normal); URINE LEUKOCYTE ESTERASE NEG Leu/uL (Negative); URINE PROTEIN NEGATIVE (NEGATIVE)
[2018-03-02 06:03] VITALS: BP 118/77; PULSE 85; TEMP 99.5
[2018-03-02 06:19] LABS: BARBITURATES, UR NEGATIVE (NEGATIVE); BENZODIAZEPINES, UR POSITIVE (NEGATIVE); OPIATES, UR NEGATIVE (NEGATIVE); PHENCYCLIDINE, UR NEGATIVE (NEGATIVE)
--- NOTE | 2018-03-02 06:20 | CARD ---
APPROVED REPORT Date of service: 03/01/2018 EKG Measurement Heart [id number] <Conclusion> Sinus tachycardia Possible Left atrial enlargement Septal infarct, age undetermined Abnormal ECG
--- NOTE | 2018-03-02 11:50 | RAD ---
Date of service: 03/01/2018 HISTORY: chest pain COMPARISON: 02/12/2018. FINDINGS: LUNGS: The lungs are well inflated and clear. PLEURA: No significant pleural effusion identified, no pneumothorax apparent. CARDIOVASCULAR: Normal. OSSEOUS STRUCTURES: No significant abnormalities. VISUALIZED UPPER ABDOMEN: Normal. OTHER FINDINGS: None. IMPRESSION: No acute findings.
== END 2018-03-02 06:33 | disposition home or self-care (01) ==
LOC: H.ER 20:45
DX: B34.9 Viral infection, unspecified (principal); G40.909 Epilepsy, unspecified, not intractable, without status epilepticus
CPT/HCPCS: 71045; 80053; 80320; 80324; 80345; 80346; 80349; 80353; 80358; 80361; 81003; 82948; 83605; 83992; 85025; 85610; 85730; 87040; 87804; 93005; 96360; 99285; J7030

== ENCOUNTER 2018-03-02 07:25 | Emergency (ER) | payer MEDICAID ==
[2018-03-02 07:26] VITALS: BMI 24.0
--- NOTE | 2018-03-02 07:47 | ED PDOC ---
HPI: Head Injury Time Seen by Provider: 03/02/18 07:33 Chief Complaint (Provider): Head laceration History Per: Patient History/Exam Limitations: no limitations Injury Occurred (Timing): Hours Ago: Onset/Duration Of Symptoms: Hrs Patient States: Fell Striking Head Additional History Per: EMS Additional Complaint(s): 52 year old male was brought to the ER via EMS for an evaluation of a head laceration today morning after he was discharged from here. As per EMS, patient fell backwards and hit the back of his head on the ground. Patient states he has neck pain and his collar bone hurts. Patient denies loss of consciousness, vomiting, diarrhea or difficulty breathing. PMD: No Family Provider Past Medical History Reviewed: Historical Data, Nursing Documentation, Vital Signs Vital Signs: Last Vital Signs Temp 103.1 F H 03/02/18 07:28 Pulse 100 H 03/02/18 07:28 Resp 17 03/02/18 07:28 BP 121/66 03/02/18 07:28 Pulse Ox 98 03/02/18 07:28 - Medical History PMH: Anemia, Anxiety, Back Problems (herniated disc), Deep Vein Thrombosis, Fractures (rib, left shoulder, left hand 5th digit, humerus), Gastritis, Gall Bladder Disease (Cholelithiasis), Pancreatitis, Seizures, Chronic Pain (left shoulder) Denies: CHF, HIV, Hypercholesterolemia, Chronic Kidney Disease, Sexually Transmitted Disease - Surgical History Surgical History: Endoscopy - Family History Family History: States: Unknown Family Hx - Social History Current smoker - smoking cessation education provided: Yes (2 cigarettes per day ) Alcohol: None Drugs: Denies - Immunization History Hx Tetanus Toxoid Vaccination: Yes Hx Influenza Vaccination: Yes Hx Pneumococcal Vaccination: Yes - Home Medications Home Medications: Ambulatory Orders Medication Instructions Recorded levETIRAcetam [Keppra] 500 mg PO Q12H 10/25/17 Pantoprazole [Protonix EC Tab] 40 mg PO DAILY ect 02/10/18 - Allergies Allergies/Adverse Reactions: Allergies Allergy/AdvReac Type Severity Reaction Status Date / Time aspirin Allergy NAUSEA Verified 03/02/18 07:56 ibuprofen [From Motrin] Allergy NAUSEA Verified 03/02/18 07:56 naproxen Allergy RASH Verified 03/02/18 07:56 NSAIDS (Non-Steroidal Allergy NAUSEA Verified 03/02/18 07:56 Anti-Inflamma Review of Systems ROS Statement: Except As Marked, All Systems Reviewed And Found Negative Eyes: Negative for: Vision Change Respiratory: Negative for: Shortness of Breath Gastrointestinal: Negative for: Nausea, Vomiting, Diarrhea Musculoskeletal: Positive for: Neck Pain Neurological: Positive for: Other (laceration on occipital scalp) Psych: Negative for: Suicidal ideation (homicidal ideation ) Physical Exam - Reviewed Nursing Documentation Reviewed: Yes Vital Signs Reviewed: Yes - Physical Exam Appears: Positive for: Non-toxic, No Acute Distress Head Exam: Positive for: ATRAUMATIC, NORMOCEPHALIC. Negative for: NORMAL INSPECTION (1.5cm laceration on occipital scalp, no palpable mass) Skin: Positive for: Normal Color, Warm, Dry Eye Exam: Positive for: Normal appearance, EOMI, PERRL. Negative for: Periorbital swelling, Periorbital tenderness, Conjunctival injection ENT: Positive for: Normal ENT Inspection Neck: Negative for: Normal (tenderness to cervical spine ) Cardiovascular/Chest: Positive for: Regular Rate, Rhythm. Negative for: Murmur Respiratory: Positive for: Normal Breath Sounds. Negative for: Decreased Breath Sounds, Wheezing, Respiratory Distress Gastrointestinal/Abdominal: Positive for: Normal Exam, Soft. Negative for: Tenderness, Guarding, Rebound Back: Positive for: Normal Inspection Extremity: Positive for: Normal ROM. Negative for: Tenderness, Pedal Edema, Deformity Neurologic/Psych: Positive for: Alert, Oriented (x3). Negative for: Motor/ Sensory Deficits - Laboratory Results Result Diagrams: 03/02/18 07:45 03/02/18 07:45 - ECG O2 Sat by Pulse Oximetry: 98 (RA) Pulse Ox Interpretation: Normal Medical Decision Making Medical Decision Making: Time: 736 Initial Impression: head laceration Initial Plan: --Cervical Spine w/o Contrast CT --Head w/o Contrast CT --BMP --CBC w/ Differential --IV Insertion --Reevaluation Time: 838 PROCEDURE: CT HEAD WITHOUT CONTRAST. HISTORY: fall with head injury COMPARISON: 01/23/2018 TECHNIQUE: Axial computed tomography images were obtained through the head/brain without intravenous contrast. Radiation dose: Total exam DLP = 813 mGy-cm. This CT exam was performed using one or more of the following dose reduction techniques: Automated exposure control, adjustment of the mA and/or kV according to patient size, and/or use of iterative reconstruction technique. FINDINGS: HEMORRHAGE: No intracranial hemorrhage. BRAIN: No mass effect or edema. No atrophy Marked chronic appearing bi frontal periventricular hypodensity right slightly greater than left noted and similar in appearance. Similarly some minimal deep white matter hypodensity unchanged in appearance probably relates to chronic microvascular ischemic changes. VENTRICLES: The mild asymmetrical dilatation left frontal horn is as before. No interval pathology suggested. CALVARIUM: Unremarkable. PARANASAL SINUSES: The bilateral maxillary ethmoid and to lesser extent right sphenoid sinus inflammatory changes which likely include concomitant underlying retention cysts are renoted per prior images The mucosal thickening in the maxillary sinuses an notes chronicity. MASTOID AIR CELLS: Unremarkable as visualized. No inflammatory changes. OTHER FINDINGS: Minimal soft tissue scalp fullness right paracentral parietal occipital location -may relate to interval pathology. Positioning can also simulate this. Correlate clinically IMPRESSION: No intracranial hemorrhage or mass effect. Chronic microvascular ischemic changes inferred. Chronic sinus inflammatory changes as detailed above No calvarial fracture. Nonspecific minimal right paracentral parietal occipital scalp fullness/swelling. Correlate clinically Time: 901 PROCEDURE: CT Cervical Spine without contrast HISTORY: fall with head injury COMPARISON: None available. TECHNIQUE: Axial computed tomography images were obtained of the cervical spine without the use of intravenous contrast. Coronal and sagittal reformatted images were created and reviewed. Radiation dose: Total exam DLP = mGy-cm. This CT exam was performed using one or more of the following dose reduction techniques: Automated exposure control, adjustment of the mA and/or kV according to patient size, and/or use of iterative reconstruction technique. FINDINGS: VERTEBRAE: No fracture. 2 mm anterior subluxation C5 relative to C6. -compatible with degenerative ligamentous laxity- regional facet hypertrophic changes here noted. No destructive bony lesion. Endplate spondylosis C6-7. DISCS/SPINAL CANAL/NEURAL FORAMINA: No significant central canal or neural foraminal stenosis. Disc space narrowing C6-7 and primarily. PARASPINAL SOFT TISSUES: Unremarkable. OTHER FINDINGS: Extensive paranasal sinus inflammatory changes the right maxillary sinus is nearly completely opacified. Lobulated soft tissue densities left maxillary sinus compatible with retention cyst. Mucosal thickening compatible with chronic left maxillary sinusitis as well. Marked leftward nasal septal deviation also incidentally noted. IMPRESSION: No fracture or lytic lesion noted. The mild subluxation as referenced above is compatible with degenerative ligamentous laxity associated with the mid to inferior bilateral apophyseal joint hypertrophy. Mild spondylosis C6-7 with intervening degenerative disc disease Incidental paranasal sinus inflammatory changes as above. Scribe Attestation: Documented by Jean Claude Whitmore, acting as a scribe for Kary Huizar MD Provider Scribe Attestation: All medical record entries made by the Scribe were at my direction and personally dictated by me. I have reviewed the chart and agree that the record accurately reflects my personal performance of the history, physical exam, medical decision making, and the department course for this patient. I have also personally directed, reviewed, and agree with the discharge instructions and disposition. Time: 1402 -- Laceration repaired. Patient to be discharged home. Scribe Attestation: Documented by Tutu Butler, acting as a scribe for Kary Huizar MD. Provider Scribe Attestation: All medical record entries made by the Scribe were at my direction and personally dictated by me. I have reviewed the chart and agree that the record accurately reflects my personal performance of the history, physical exam, medical decision making, and the department course for this patient. I have also personally directed, reviewed, and agree with the discharge instructions and disposition. Procedures - Laceration/Wound Repair Head Wound Length (cm): 1.5 (x2 separate lacerations) Wound's Depth, Shape: irregular Wound Explored: no foreign body removed Irrigated w/ Saline (ccs): 30 (per laceration (x2)) Anesthesia: Lidocaine w/ Epi Volume Anesthetic (ccs): 9 Wound Repaired With: Darron Number of Sutures: 4 (per wound (8 darron total)) Wound Complexity: Simple Splint Applied?: No Sling Applied?: No Progress: Location: Occipital and mid-occipital note. 2 separate lacerations. Both irregular measuring at 1.5 cm each. Irrigated with saline and applied Lidocaine 1% w/ Epi. No foreign body identified. Closed with approximately 4 darron per wound. Patient tolerated procedure well. Disposition - Clinical Impression Clinical Impression: Scalp laceration - Patient ED Disposition Is Patient to be Admitted: No Doctor Will See Patient In The: Office Counseled Patient/Family Regarding: Diagnosis, Need For Followup - Disposition Referrals: [facility] [Outside] Disposition: Routine/Home Disposition Time: 14:02 Condition: IMPROVED Additional Instructions: Please have wound examined in 2-3 days Instructions: Laceration Repair With [facility] (DC) Forms: [employer] (Belgian) - POA Present On Arrival: Falls Or Trauma
[2018-03-02 08:06] LABS: BASO % 0.8 % (0.0-2.0); EOS # 0.1 K/uL (0.0-0.7); EOS % 4.5 % (0.0-4.0); HEMOGLOBIN 8.8 g/dL (12.0-18.0); LYMPH # 0.5 K/uL (1.0-4.3); LYMPH % 15.9 % (20.0-40.0); MEAN CELL VOLUME 86.2 fl (80.0-94.0); MEAN CORPUSCULAR HEMOGLOBIN 28.7 pg (27.0-31.0); MEAN CORPUSCULAR HGB CONC 33.3 g/dL (33.0-37.0); MEAN PLATELET VOLUME 7.9 fl (7.2-11.7); MONO # 0.3 K/uL (0.0-0.8); MONO % 9.2 % (0.0-10.0); NEUT % 69.6 % (50.0-75.0); RBC 3.06 Mil/uL (4.40-5.90); RED CELL DISTRIBUTION WIDTH 20.3 % (11.5-14.5); WHITE BLOOD COUNT 2.8 K/uL (4.8-10.8)
[2018-03-02 08:12] LABS: BLOOD UREA NITROGEN 13 mg/dl (9-20); CALCIUM 7.9 mg/dL (8.4-10.2); GFR NON-AFRICAN AMERICAN > 60
--- NOTE | 2018-03-02 08:40 | CT ---
Date of service: 03/02/2018 PROCEDURE: CT HEAD WITHOUT CONTRAST. HISTORY: fall with head injury COMPARISON: 01/23/2018 TECHNIQUE: Axial computed tomography images were obtained through the head/brain without intravenous contrast. Radiation dose: Total exam DLP = 813 mGy-cm. This CT exam was performed using one or more of the following dose reduction techniques: Automated exposure control, adjustment of the mA and/or kV according to patient size, and/or use of iterative reconstruction technique. FINDINGS: HEMORRHAGE: No intracranial hemorrhage. BRAIN: No mass effect or edema. No atrophy Marked chronic appearing bi frontal periventricular hypodensity right slightly greater than left noted and similar in appearance. Similarly some minimal deep white matter hypodensity unchanged in appearance probably relates to chronic microvascular ischemic changes. VENTRICLES: The mild asymmetrical dilatation left frontal horn is as before. No interval pathology suggested. CALVARIUM: Unremarkable. PARANASAL SINUSES: The bilateral maxillary ethmoid and to lesser extent right sphenoid sinus inflammatory changes which likely include concomitant underlying retention cysts are renoted per prior images The mucosal thickening in the maxillary sinuses an notes chronicity. MASTOID AIR CELLS: Unremarkable as visualized. No inflammatory changes. OTHER FINDINGS: Minimal soft tissue scalp fullness right paracentral parietal occipital location -may relate to interval pathology. Positioning can also simulate this. Correlate clinically IMPRESSION: No intracranial hemorrhage or mass effect. Chronic microvascular ischemic changes inferred. Chronic sinus inflammatory changes as detailed above No calvarial fracture. Nonspecific minimal right paracentral parietal occipital scalp fullness/swelling. Correlate clinically
--- NOTE | 2018-03-02 09:03 | CT ---
Date of service: 03/02/2018 PROCEDURE: CT Cervical Spine without contrast HISTORY: fall with head injury COMPARISON: None available. TECHNIQUE: Axial computed tomography images were obtained of the cervical spine without the use of intravenous contrast. Coronal and sagittal reformatted images were created and reviewed. Radiation dose: Total exam DLP = mGy-cm. This CT exam was performed using one or more of the following dose reduction techniques: Automated exposure control, adjustment of the mA and/or kV according to patient size, and/or use of iterative reconstruction technique. FINDINGS: VERTEBRAE: No fracture. 2 mm anterior subluxation C5 relative to C6. -compatible with degenerative ligamentous laxity- regional facet hypertrophic changes here noted. No destructive bony lesion. Endplate spondylosis C6-7. DISCS/SPINAL CANAL/NEURAL FORAMINA: No significant central canal or neural foraminal stenosis. Disc space narrowing C6-7 and primarily. PARASPINAL SOFT TISSUES: Unremarkable. OTHER FINDINGS: Extensive paranasal sinus inflammatory changes the right maxillary sinus is nearly completely opacified. Lobulated soft tissue densities left maxillary sinus compatible with retention cyst. Mucosal thickening compatible with chronic left maxillary sinusitis as well. Marked leftward nasal septal deviation also incidentally noted. IMPRESSION: No fracture or lytic lesion noted. The mild subluxation as referenced above is compatible with degenerative ligamentous laxity associated with the mid to inferior bilateral apophyseal joint hypertrophy. Mild spondylosis C6-7 with intervening degenerative disc disease Incidental paranasal sinus inflammatory changes as above.
[2018-03-02] MEDS ORDERED: Lidocaine/Epi 1% 1:100000 20 ML IJ STA (13:31)
[2018-03-02 15:37] VITALS: BP 122/77; PULSE 94; RESP 18; TEMP 99.8; O2SAT 95
== END 2018-03-02 15:36 | disposition home or self-care (01) ==
LOC: H.ER 07:25
DX: S01.91XA Laceration without foreign body of unspecified part of head, initial encounter (principal); S09.90XA Unspecified injury of head, initial encounter; F17.210 Nicotine dependence, cigarettes, uncomplicated; G89.29 Other chronic pain; Z86.718 Personal history of other venous thrombosis and embolism; Z88.6 Allergy status to analgesic agent; W18.30XA Fall on same level, unspecified, initial encounter

== ENCOUNTER 2018-03-02 16:07 | Inpatient (IN) | payer MEDICAID ==
[2018-03-02 16:07] VITALS: BMI 24.0
[2018-03-02] MEDS ORDERED: Thiamine 100 mg/ml Inj IM STA (16:20)
--- NOTE | 2018-03-02 16:43 | ED PDOC ---
HPI: Trauma/Fall - HPI Time Seen by Provider: 03/02/18 16:20 Chief Complaint (Nursing): Trauma Chief Complaint (Provider): Trauma History Per: Patient History/Exam Limitations: no limitations Onset/Duration Of Symptoms: Mins Injury Occurred (Timing): Just Before Arrival Location Of Injury: Posterior: Head Additional Complaint(s): 52 y/o male with a PMHx significant for alcoholism, GI bleed, and seizure d/o presents to the ED for evaluation of a head injury, onset prior to arrival. Patient reports of having a lot of trouble waling and with balance. While he was outside, patient reports he fell back. Patient was just seen in this ER one hour prior to arrival after a fall. At that time, patient sustained two scalp lacerations. Workup was otherwise unremarkable. Some oozing at the wound noted. However, patient denies loss of consciousness and seizure. Patient is known well to the ER for alcoholism and bed seeking behavior. PMD: No Provider Past Medical History Reviewed: Historical Data, Nursing Documentation, Vital Signs Vital Signs: Last Vital Signs Temp 101.4 F H 03/02/18 16:10 Pulse 106 H 03/02/18 16:10 Resp 18 03/02/18 16:10 BP 124/77 03/02/18 16:10 Pulse Ox 98 03/02/18 16:10 - Medical History PMH: Anemia, Anxiety, Back Problems (herniated disc), Deep Vein Thrombosis, Fractures (rib, left shoulder, left hand 5th digit, humerus), Gastritis, Gall Bladder Disease (Cholelithiasis), Pancreatitis, Seizures, Chronic Pain (left shoulder) Denies: CHF, HIV, Hypercholesterolemia, Chronic Kidney Disease, Sexually Transmitted Disease - Surgical History Surgical History: Endoscopy - Family History Family History: States: Unknown Family Hx - Immunization History Hx Tetanus Toxoid Vaccination: Yes Hx Influenza Vaccination: Yes Hx Pneumococcal Vaccination: Yes - Home Medications Home Medications: Ambulatory Orders Medication Instructions Recorded levETIRAcetam [Keppra] 500 mg PO Q12H 10/25/17 Pantoprazole [Protonix EC Tab] 40 mg PO DAILY ect 02/10/18 Famotidine [Pepcid] 20 mg PO BID 03/02/18 - Allergies Allergies/Adverse Reactions: Allergies Allergy/AdvReac Type Severity Reaction Status Date / Time aspirin Allergy NAUSEA Verified 03/02/18 07:56 ibuprofen [From Motrin] Allergy NAUSEA Verified 03/02/18 07:56 naproxen Allergy RASH Verified 03/02/18 07:56 NSAIDS (Non-Steroidal Allergy NAUSEA Verified 03/02/18 07:56 Anti-Inflamma Review of Systems ROS Statement: Except As Marked, All Systems Reviewed And Found Negative Musculoskeletal: Positive for: Other (Head Injury ) Neurological: Negative for: Seizures Physical Exam - Reviewed Nursing Documentation Reviewed: Yes Vital Signs Reviewed: Yes - Physical Exam Appears: Positive for: No Acute Distress (somewhat unkempt, febrile) Head Exam: Negative for: NORMAL INSPECTION (Stapled lacerations to the posterior occiput of the scalp with dry blood noted. No active bleeding, no hematoma and no tenderness to palpation. ) Skin: Positive for: Warm, Dry Eye Exam: Positive for: EOMI, PERRL ENT: Positive for: Other (dry mucous membranes) Neck: Positive for: Painless ROM, Supple Cardiovascular/Chest: Positive for: Regular Rate, Rhythm. Negative for: Murmur Gastrointestinal/Abdominal: Positive for: Soft. Negative for: Tenderness Back: Positive for: Normal Inspection. Negative for: Vertebral Tenderness, Decreased ROM Extremity: Positive for: Normal ROM. Negative for: Deformity Lymphatic: Negative for: Adenopathy Neurologic/Psych: Positive for: Alert, Oriented (x3), Gait (appears to have a wide based gait. Somewhat unsteay). Negative for: Motor/Sensory Deficits - Laboratory Results Result Diagrams: 03/03/18 05:50 03/03/18 05:50 - ECG O2 Sat by Pulse Oximetry: 98 (RA) Pulse Ox Interpretation: Normal Medical Decision Making Medical Decision Making: Time: 1646 Impression: Head injury , questionable dystaxia Plan: -- Type and Screen -- CT Head w/o contrast -- Alcohol Serum -- BMP -- CBC with differentials -- Thiamine 100 mg IM -- Nursing Communication HEAD CT RESULTS FINDINGS: HEMORRHAGE: No intracranial hemorrhage. BRAIN: No mass effect or edema. No marked atrophy Marked chronic appearing bi frontal periventricular hypodensity right slightly greater than left noted and similar in appearance. Similarly some minimal deep white matter hypodensity unchanged in appearance probably relates to chronic microvascular ischemic changes. VENTRICLES: Unremarkable. No hydrocephalus. CALVARIUM: Interval hyperdensities in the scalp over the slightly right paracentral descend parietal-occipital region and air were prior minimal soft tissue scalp fullness had been mentioned. Clinical correlation is needed in terms of any potential surgical intervention here given the hyperdensities. Subjacent calvarium is intact. PARANASAL SINUSES: Unremarkable as visualized. No significant inflammatory changes. MASTOID AIR CELLS: Unremarkable as visualized. No inflammatory changes. OTHER FINDINGS: None. IMPRESSION: Interval changes in the hyperdensities in the scalp posteriorly as referenced above. For which clinical correlation is needed. No calvarial fracture. No interval intracranial hemorrhage or mass effect. Labs demonstrate pancytopenia. At this time, source of fever is unknown. Given h /o alcoholism and poor protoplasm, will initiated broad spectrum antibiotics. DW Dr Colin Hospitalist for clinic patient admission. ____ Scribe Attestation: Documented by Tutu Butler, acting as a scribe for Fatimah Morillo MD. Provider Scribe Attestation: All medical record entries made by the Scribe were at my direction and personally dictated by me. I have reviewed the chart and agree that the record accurately reflects my personal performance of the history, physical exam, medical decision making, and the department course for this patient. I have also personally directed, reviewed, and agree with the discharge instructions and disposition. Disposition - Clinical Impression Clinical Impression: Seizure disorder, Pancytopenia, ETOH abuse, Fever Counseled Patient/Family Regarding: Studies Performed, Diagnosis - Disposition Disposition Time: 19:00 Condition: GUARDED - Pt Status Changed To: Hospital Disposition Of: Inpatient - Admit Certification Admit to Inpatient:: After my assessment, the patient will require hospitalization for at least two midnights. This is because of the severity of symptoms shown, intensity of services needed, and/or the medical risk in this patient being treated as an outpatient. - POA Present On Arrival: Falls Or Trauma
--- NOTE | 2018-03-02 16:47 | CT ---
Date of service: 03/02/2018 PROCEDURE: CT HEAD WITHOUT CONTRAST. HISTORY: head injury COMPARISON: 03/02/2018 TECHNIQUE: Axial computed tomography images were obtained through the head/brain without intravenous contrast. Radiation dose: Total exam DLP = mGy-cm. This CT exam was performed using one or more of the following dose reduction techniques: Automated exposure control, adjustment of the mA and/or kV according to patient size, and/or use of iterative reconstruction technique. FINDINGS: HEMORRHAGE: No intracranial hemorrhage. BRAIN: No mass effect or edema. No marked atrophy Marked chronic appearing bi frontal periventricular hypodensity right slightly greater than left noted and similar in appearance. Similarly some minimal deep white matter hypodensity unchanged in appearance probably relates to chronic microvascular ischemic changes. VENTRICLES: Unremarkable. No hydrocephalus. CALVARIUM: Interval hyperdensities in the scalp over the slightly right paracentral descend parietal-occipital region and air were prior minimal soft tissue scalp fullness had been mentioned. Clinical correlation is needed in terms of any potential surgical intervention here given the hyperdensities. Subjacent calvarium is intact. PARANASAL SINUSES: Unremarkable as visualized. No significant inflammatory changes. MASTOID AIR CELLS: Unremarkable as visualized. No inflammatory changes. OTHER FINDINGS: None. IMPRESSION: Interval changes in the hyperdensities in the scalp posteriorly as referenced above. For which clinical correlation is needed. No calvarial fracture. No interval intracranial hemorrhage or mass effect.
[2018-03-02] MEDS ORDERED: Sodium Chloride 0.9% 1,000 ML IV STA (17:45)
[2018-03-02 18:27] LABS: BASO % 0.4 % (0.0-2.0); EOS # 0.1 K/uL (0.0-0.7); EOS % 3.1 % (0.0-4.0); HEMOGLOBIN 8.2 g/dL (12.0-18.0); LYMPH # 0.3 K/uL (1.0-4.3); LYMPH % 16.6 % (20.0-40.0); MEAN CELL VOLUME 85.8 fl (80.0-94.0); MEAN CORPUSCULAR HEMOGLOBIN 28.8 pg (27.0-31.0); MEAN CORPUSCULAR HGB CONC 33.5 g/dL (33.0-37.0); MEAN PLATELET VOLUME 7.3 fl (7.2-11.7); MONO # 0.3 K/uL (0.0-0.8); MONO % 12.6 % (0.0-10.0); NEUT # 1.4 K/uL (1.8-7.0); NEUT % 67.3 % (50.0-75.0); NRBC % 0.1 % (0.0-0.0); RBC 2.85 Mil/uL (4.40-5.90); RED CELL DISTRIBUTION WIDTH 20.2 % (11.5-14.5)
[2018-03-02 18:41] LABS: ALB/GLOB RATIO 0.7 (1.0-2.1); ALBUMIN 2.8 g/dL (3.5-5.0); ALT/SGPT 37 U/L (21-72); AST/SGOT 84 U/L (17-59); BLOOD UREA NITROGEN 13 mg/dl (9-20); GFR NON-AFRICAN AMERICAN > 60; LIPASE 227 U/L (23-300)
[2018-03-02] MEDS ORDERED: Lidocaine 5% Patch TD STA (18:53)
[2018-03-02 18:55] LABS: URINE BACTERIA RARE (<OCC); URINE BILIRUBIN NEGATIVE (NEGATIVE); URINE BLOOD SMALL (NEGATIVE); URINE CLARITY SLIGHTY-CLOUDY (Clear); URINE COLOR YELLOW (YELLOW); URINE GLUCOSE (UA) NEG (Normal); URINE LEUKOCYTE ESTERASE NEG Leu/uL (Negative); URINE PROTEIN NEGATIVE (NEGATIVE)
[2018-03-02] MEDS ORDERED: Piperacillin/Tazobact 3.375 GM in Sodium Chloride 0.9% 100 ML IV STA (19:05)
[2018-03-02 19:09] LABS: VENOUS BLOOD GAS BASE EXCESS -1.4 mmol/L (0.0-2.0); VENOUS BLOOD GAS PCO2 27 mmHg (40-60); VENOUS BLOOD GAS PO2 69 mm/Hg (30-55); VENOUS BLOOD PH 7.49 (7.32-7.43)
[2018-03-02] MEDS: Piperacillin/Tazobact 3.375 GM in Sodium Chloride 0.9% 100 ML IVPB SCH ×2 (20:00→21:59)
--- NOTE | 2018-03-02 20:28 | CP.PCM.HP ---
<Elizabeth Quinteros - Last Filed: 03/02/18 23:40> History of Present Illness - History of Present Illness History of Present Illness: 52 yr old M presents to ED with complaint of head trauma and bleeding s/p 2 falls today. Reports he was in the street with friends and fell backwards twice and hit the back of his head. Patient reports he does not know why he fell, he feels "off balance" but not dizzy. PMHx includes etoh abuse disorder, liver cirrhosis, esophageal ulcers, unwitnessed seizures. Patient denies fevers, chills, nausea, vomiting, diarrhea, visual changes. Denies alcohol use for past 3 months-poor historian; [employer] records reviewed (serum Etoh quant was 122 on 02/16/18; 125 on 02/19/18 and 76 yesterday). Denies dizziness, visual changes, nausea, vomiting, loss of consciousness, chest pain, dysuria, hematuria or hematochezia. PMD: none PMHx: etoh use disorder, liver cirrhosis, esophageal ulcers Surgical hx: TIPs in 2015 PHos hx: multiple ED visits, etoh abuse, unwitnessed seizures and rib fracture Social hx: smoker; 3 cigarettes a day, 1.5 ppd previously, etoh denies abuse but level 57 Family hx: father VT, mother smoker and of lung cancer, sister diagnosed with colon cancer Allergies: asprin, ibuprofen, naproxen, NSAIDs (nausea for all of them) Next of Kin: [facility] [phone] Code status: full code ED Course: BP 124/77 mmHg, HR 108 bpm, Temp 101.4F; 102.4F, Resp rate 18, SpO2 98 % on room air -Head CT: no mass effect or edema, interval hyperdensities in the scalp over right paracentral descend parietal-occipital region , minimal soft tissue scalp fullness; no intracranial hemorrhage. -CXR: no active disease -CBC: WBC 2.0, H/H 8.2/24.4, MCV 85.8, plts 44 -CMP: Na 135, K+ 3.5, Cl 107, HCO3 23, AG 9, BUN 13/Cr 0.6, est GFR >60 -magnesium 1.2, total bili 2.0, AST 84, ALT 37, alk phos 144, LDH 618, lipase 227 -VBG: pH 7.49, pCO2 27, HCO3 23.8, lactate 1.5 -UA: negative -serum Etoh <10 -blood and urine culture pending -ED treatment: 8 vikas to occiptal scalp laceration; Tylenol 975mg PO once, NS 1L IV bolus, Thiamine 100mg IM once, Vancomycin 1gm IV once, Zosyn 3.375gm IV once Present on Admission - Present on Admission Any Indicators Present on Admission: No History of DVT/PE: No History of Uncontrolled Diabetes: No Urinary Catheter: No Decubitus Ulcer Present: No History Surgical Site Infection Following: None Review of Systems - Constitutional Constitutional: absent: Headache - EENT Eyes: absent: Blurred Vision Ears: absent: Dizziness Nose/Mouth/Throat: absent: Nasal Congestion - Cardiovascular Cardiovascular: absent: Chest Pain, Dyspnea, Leg Edema, Palpitations, Syncope - Respiratory Respiratory: absent: Cough, Hemoptysis - Gastrointestinal Gastrointestinal: absent: Diarrhea, Hematemesis, Hematochezia, Nausea, Vomiting - Genitourinary Genitourinary: absent: Difficulty Urinating, Dysuria - Musculoskeletal Musculoskeletal: Arthralgias. absent: Numbness, Tingling - Integumentary Integumentary: Wounds (scalp laceration s/p fall) - Neurological Neurological: Disequilibrium. absent: Confusion, Dizziness, Focal Weakness - Endocrine Endocrine: absent: Polydipsia, Polyphagia, Polyuria - Hematologic/Lymphatic Hematologic: absent: Easy Bleeding, Easy Bruising Past Patient History - Infectious Disease Hx of Infectious Diseases: None - Tetanus Immunizations Tetanus Immunization: Unknown - Past Medical History & Family History Past Medical History?: Yes - Past Social History Smoking Status: Former Smoker - CARDIAC Hx Congestive Heart Failure: No Hx Hypercholesterolemia: No - NEUROLOGICAL Hx Seizures: Yes - HEENT Hx HEENT Problems: No - RENAL Hx Chronic Kidney Disease: No - ENDOCRINE/METABOLIC Hx Endocrine Disorders: No - HEMATOLOGICAL/ONCOLOGICAL Hx Anemia: Yes Hx Human Immunodeficiency Virus (HIV): No - INTEGUMENTARY Hx Dermatological Problems: No - MUSCULOSKELETAL/RHEUMATOLOGICAL Hx Fractures: Yes (rib, left shoulder, left hand 5th digit, humerus) - GASTROINTESTINAL Hx Gall Bladder Disease: Yes (Cholelithiasis) Hx Gastritis: Yes Hx Pancreatitis: Yes - GENITOURINARY/GYNECOLOGICAL Hx Sexually Transmitted Disorders: No - PSYCHIATRIC Hx Anxiety: Yes - SURGICAL HISTORY Hx Surgeries: Yes - ANESTHESIA Hx Anesthesia: Yes Hx Anesthesia Reactions: No Hx Malignant Hyperthermia: No Meds Allergies/Adverse Reactions: Allergies Allergy/AdvReac Type Severity Reaction Status Date / Time aspirin Allergy NAUSEA Verified 03/02/18 07:56 ibuprofen [From Motrin] Allergy NAUSEA Verified 03/02/18 07:56 naproxen Allergy RASH Verified 03/02/18 07:56 NSAIDS (Non-Steroidal Allergy NAUSEA Verified 03/02/18 07:56 Anti-Inflamma Physical Exam - Constitutional Appears: No Acute Distress (poor hygiene) - Head Exam Head Exam: absent: ATRAUMATIC (parietal laceration s/p 4 vikas+ occipital laceration s/p 4 vikas) - Eye Exam Eye Exam: EOMI, PERRL - ENT Exam ENT Exam: Mucous Membranes Moist - Neck Exam Neck exam: Positive for: Full Rom. Negative for: Lymphadenopathy, Meningismus, Tenderness - Respiratory Exam Respiratory Exam: Clear to Auscultation Bilateral, NORMAL BREATHING PATTERN. absent: Rales, Rhonchi, Wheezes - Cardiovascular Exam Cardiovascular Exam: Tachycardia, +S1, +S2 - GI/Abdominal Exam GI & Abdominal Exam: Normal Bowel Sounds, Soft. absent: Tenderness - Extremities Exam Extremities exam: Positive for: full ROM, pedal pulses present. Negative for: joint swelling, pedal edema, tenderness - Back Exam Back exam: absent: CVA tenderness (L), CVA tenderness (R) - Neurological Exam Neurological exam: Alert, Oriented x3 - Psychiatric Exam Psychiatric exam: Normal Affect, Normal Mood - Skin Skin Exam: Dry, Normal Color, Warm Results - Vital Signs Recent Vital Signs: Last Vital Signs Temp 102.4 F H 03/02/18 19:00 Pulse 99 H 03/02/18 19:00 Resp 20 03/02/18 19:00 BP 101/65 03/02/18 19:00 Pulse Ox 96 03/02/18 19:00 - Labs Result Diagrams: 03/02/18 18:15 03/02/18 18:15 Labs: Laboratory Results - last 24 hr 03/02/18 03/02/18 03/02/18 18:15 18:15 18:15 WBC 2.0 L* RBC 2.85 L Hgb 8.2 L Hct 24.4 L MCV 85.8 MCH 28.8 MCHC 33.5 RDW 20.2 H Plt Count 44 L MPV 7.3 Neut % (Auto) 67.3 Lymph % (Auto) 16.6 L [place] % (Auto) 12.6 H Eos % (Auto) 3.1 Baso % (Auto) 0.4 Neut # (Auto) 1.4 L Lymph # (Auto) 0.3 L [place] # (Auto) 0.3 Eos # (Auto) 0.1 Baso # (Auto) 0.0 pO2 VBG pH VBG pCO2 VBG HCO3 VBG Total CO2 VBG O2 Sat (Calc) VBG Base Excess VBG Potassium Glucose Lactate FiO2 Sodium 135 Potassium 3.5 L Chloride 107 Carbon Dioxide 23 Anion Gap 9 L BUN 13 Creatinine 0.6 L Est GFR ( Amer) > 60 Est GFR (Non-Af Amer) > 60 Random Glucose 94 Calcium 8.0 L Phosphorus 2.9 Magnesium 1.2 L Total Bilirubin 2.0 H AST 84 H ALT 37 Alkaline Phosphatase 144 H Lactate Dehydrogenase 618 Total Protein 6.6 Albumin 2.8 L Globulin 3.8 Albumin/Globulin Ratio 0.7 L Lipase 227 Venous Blood Potassium Urine Color Urine Clarity Urine pH Ur Specific P[place] Urine Protein Urine Glucose (UA) Urine Ketones Urine Blood Urine Nitrate Urine Bilirubin Urine Urobilinogen Ur Leukocyte Esterase Urine RBC (Auto) Urine Microscopic WBC Urine Bacteria Alcohol, Quantitative < 10 Blood Type O POSITIVE Antibody Screen Negative BBK History Checked Patient has bt 03/02/18 03/02/18 18:15 19:00 WBC RBC Hgb Hct MCV MCH MCHC RDW Plt Count MPV Neut % (Auto) Lymph % (Auto) [place] % (Auto) Eos % (Auto) Baso % (Auto) Neut # (Auto) Lymph # (Auto) [place] # (Auto) Eos # (Auto) Baso # (Auto) pO2 69 H VBG pH 7.49 H VBG pCO2 27 L VBG HCO3 23.8 VBG Total CO2 21.4 L VBG O2 Sat (Calc) 100.7 H VBG Base Excess -1.4 L VBG Potassium 3.4 L Glucose 134 H Lactate 1.5 FiO2 21.0 Sodium 133.0 Potassium Chloride 108.0 H Carbon Dioxide Anion Gap BUN Creatinine Est GFR ( Amer) Est GFR (Non-Af Amer) Random Glucose Calcium Phosphorus Magnesium Total Bilirubin AST ALT Alkaline Phosphatase Lactate Dehydrogenase Total Protein Albumin Globulin Albumin/Globulin Ratio Lipase Venous Blood Potassium 3.4 L Urine Color Yellow Urine Clarity Slighty-cloudy Urine pH 7.0 Ur Specific [place] 1.016 Urine Protein Negative Urine Glucose (UA) Neg Urine Ketones Negative Urine Blood Small Urine Nitrate Negative Urine Bilirubin Negative Urine Urobilinogen 4.0 Ur Leukocyte Esterase Neg Urine RBC (Auto) 5 H Urine Microscopic WBC 1 Urine Bacteria Rare Alcohol, Quantitative Blood Type Antibody Screen BBK History Checked Assessment & Plan - Assessment and Plan (Free Text) Assessment: 52 yr old M admitted for SIRS, imbalance/abnormal gait with head trauma s/p 2 falls. PMHx includes etoh abuse disorder, liver cirrhosis, esophageal ulcers, unwitnessed seizures. SIRS -acute, criteria met with: temp 101.4F, HR 108, WBC 2.0 L -admit to medsurg -NS IV fluids, Zosyn 3.375mg IV Q6, Vancomycin 1gm IV Q12 -ID consult appreciated: Dr. Palma -f/u blood and urine culture Abnormal Gait/Imbalance -acute, s/p 2 falls with head injury -Head CT: no mass effect or edema, interval hyperdensities in the scalp over right paracentral descend parietal-occipital region , minimal soft tissue scalp fullness; no intracranial hemorrhage -Neurology consult appreciated: Dr. Allison -fall precautions Normocytic anemia -asymptomatic, chronic -likely anemia of chronic disease with iron deficiency -Hgb ast baseline 8.2 -f/u next day CBC Cirrhosis -chronic, stable -likely secondary to chronic alcohol abuse -MELD score: 14, 6% 3 month mortality -Child-Squires score: 9, Class B, abdominal surgery sharad-operative mortality 30% ETOH abuse -chronic -serum alcohol <10 today -CIWA 0 -Librium 25 mg PO Q8, Thiamine 100mg PO QD, Folic acid 1mg PO QD, multivitamin 1 tab PO QD Pancytopenia -chronic, stable -likely 2/2 to live failure vs bone marrow suppression 2/2 to etoh abuse/liver failure -f/u next day CBC Hx of Seizures -chronic, stable -Keppra 500mg PO Q12 Deconditioning -acute -PT/OT DVT prophylaxis -SCDs for now - Date & Time Date: 03/02/18 Time: 20:27 <Chong Cummins - Last Filed: 03/03/18 03:35> Results - Vital Signs Recent Vital Signs: Last Vital Signs Temp 98 F 03/03/18 00:27 Pulse 102 H 03/03/18 00:27 Resp 18 03/03/18 00:27 BP 99/49 L 03/03/18 00:27 Pulse Ox 95 03/03/18 00:27 - Labs Result Diagrams: 03/02/18 18:15 03/02/18 18:15 Labs: Laboratory Results - last 24 hr 03/02/18 03/02/18 03/02/18 18:15 18:15 18:15 WBC 2.0 L* RBC 2.85 L Hgb 8.2 L Hct 24.4 L MCV 85.8 MCH 28.8 MCHC 33.5 RDW 20.2 H Plt Count 44 L MPV 7.3 Neut % (Auto) 67.3 Lymph % (Auto) 16.6 L [place] % (Auto) 12.6 H Eos % (Auto) 3.1 Baso % (Auto) 0.4 Neut # (Auto) 1.4 L Lymph # (Auto) 0.3 L [place] # (Auto) 0.3 Eos # (Auto) 0.1 Baso # (Auto) 0.0 pO2 VBG pH VBG pCO2 VBG HCO3 VBG Total CO2 VBG O2 Sat (Calc) VBG Base Excess VBG Potassium Glucose Lactate FiO2 Sodium 135 Potassium 3.5 L Chloride 107 Carbon Dioxide 23 Anion Gap 9 L BUN 13 Creatinine 0.6 L Est GFR ( Amer) > 60 Est GFR (Non-Af Amer) > 60 Random Glucose 94 Calcium 8.0 L Phosphorus 2.9 Magnesium 1.2 L Total Bilirubin 2.0 H AST 84 H ALT 37 Alkaline Phosphatase 144 H Lactate Dehydrogenase 618 Total Protein 6.6 Albumin 2.8 L Globulin 3.8 Albumin/Globulin Ratio 0.7 L Lipase 227 Venous Blood Potassium Urine Color Urine Clarity Urine pH Ur Specific [place] Urine Protein Urine Glucose (UA) Urine Ketones Urine Blood Urine Nitrate Urine Bilirubin Urine Urobilinogen Ur Leukocyte Esterase Urine RBC (Auto) Urine Microscopic WBC Urine Bacteria Alcohol, Quantitative < 10 Blood Type O POSITIVE Antibody Screen Negative BBK History Checked Patient has bt 03/02/18 03/02/18 18:15 19:00 WBC RBC Hgb Hct MCV MCH MCHC RDW Plt Count MPV Neut % (Auto) Lymph % (Auto) [place] % (Auto) Eos % (Auto) Baso % (Auto) Neut # (Auto) Lymph # (Auto) [place] # (Auto) Eos # (Auto) Baso # (Auto) pO2 69 H VBG pH 7.49 H VBG pCO2 27 L VBG HCO3 23.8 VBG Total CO2 21.4 L VBG O2 Sat (Calc) 100.7 H VBG Base Excess -1.4 L VBG Potassium 3.4 L Glucose 134 H Lactate 1.5 FiO2 21.0 Sodium 133.0 Potassium Chloride 108.0 H Carbon Dioxide Anion Gap BUN Creatinine Est GFR ( Amer) Est GFR (Non-Af Amer) Random Glucose Calcium Phosphorus Magnesium Total Bilirubin AST ALT Alkaline Phosphatase Lactate Dehydrogenase Total Protein Albumin Globulin Albumin/Globulin Ratio Lipase Venous Blood Potassium 3.4 L Urine Color Yellow Urine Clarity Slighty-cloudy Urine pH 7.0 Ur Specific [place] 1.016 Urine Protein Negative Urine Glucose (UA) Neg Urine Ketones Negative Urine Blood Small Urine Nitrate Negative Urine Bilirubin Negative Urine Urobilinogen 4.0 Ur Leukocyte Esterase Neg Urine RBC (Auto) 5 H Urine Microscopic WBC 1 Urine Bacteria Rare Alcohol, Quantitative Blood Type Antibody Screen BBK History Checked Attending/Attestation - Attestation I have personally seen and examined this patient.: Yes I have fully participated in the care of the patient.: Yes I have reviewed all pertinent clinical information: Yes Notes (Text): 03/03/18 02:37 I saw and examined this patient shoulder to shoulder with Dr Quinteros. The assessment and plan represent my direct input. This is a 52 years old male with hx of Alcohol Abuse, anemia, seizure and liver cirrhosis. This is his second visit to the ED today with the same complaint that he fell with laceration to the back of the head. On the first occasion he was sutured and discharged. He refers unsteady gait, no dizziness, chest pain nor LOC. A&P #. Fall with head trauma and laceration, etiology unclear. Consider Seizure vs Autonomic Dysfunction - CT head : No fracture , Bleed nor abnormalities - CT Cervical Spine: No fracture - Consult neurology Dr Allison #. SIRS with temperature of 103.1F Hr of 106/min, WBC of 2.0: No respiratory symptoms. Alcohol withdrawal if no other etiology is found - Consult Dr Palma ID - Repeat CXR with PA/Lateral - Blood and urine culture - Procalcitonin - Vancomycin Empirical - Zosyn Empirical #. Alcohol abuse. Consider Wernicke -Korsafoff - Banana bag which includes Thiamine, folic Acid and Multivitamin - Ativan PRN for Agitation - Librium for Withdrawal #. Seizure - Keppra #. Pancytopenia secondary to Alcohol liver disease and Iron deficiency Anemia - Iron panel - Follow Hb/WBC and Platelets, If no improvement , will consult Hematology #.Hypomagnesemia - Magnesium Sulfate - Follow electrolytes #. Moderate Malnutrition - Consult Dietition Chong Cummins MD
[2018-03-02] MEDS: Sodium Chloride 0.9% 1,000 ML IV SCH (21:36)
[2018-03-02] MEDS ORDERED: Potassium Chloride 20 mEq ER Tab PO ONE (21:43)
[2018-03-02] MEDS ORDERED: Multivitamin (MVI) 10 ML, Thiamine 100 MG, Folic Acid 1 MG in Sodium Chloride 0.9% 1,00... IV ONE (21:45)
[2018-03-02] MEDS ORDERED: Magnesium Sulfate 1 gm in D5W 1 GM/100 ML BAG IVPB ONE (22:00)
[2018-03-03] MEDS: Piperacillin/Tazobact 3.375 GM in Sodium Chloride 0.9% 100 ML IVPB SCH ×4 (03:28→21:42)
[2018-03-03] MEDS: Sodium Chloride 0.9% 1,000 ML IV SCH ×3 (03:46→18:41)
[2018-03-03 06:32] LABS: BASO % 0.4 % (0.0-2.0); EOS # 0.2 K/uL (0.0-0.7); EOS % 7.5 % (0.0-4.0); HEMOGLOBIN 8.1 g/dL (12.0-18.0); LYMPH # 0.4 K/uL (1.0-4.3); LYMPH % 17.3 % (20.0-40.0); MEAN CELL VOLUME 85.8 fl (80.0-94.0); MEAN CORPUSCULAR HEMOGLOBIN 28.6 pg (27.0-31.0); MEAN CORPUSCULAR HGB CONC 33.4 g/dL (33.0-37.0); MEAN PLATELET VOLUME 7.8 fl (7.2-11.7); MONO # 0.3 K/uL (0.0-0.8); NEUT # 1.4 K/uL (1.8-7.0); NEUT % 62.8 % (50.0-75.0); NRBC % 0.2 % (0.0-0.0); RBC 2.84 Mil/uL (4.40-5.90); RED CELL DISTRIBUTION WIDTH 20.1 % (11.5-14.5); WHITE BLOOD COUNT 2.2 K/uL (4.8-10.8)
[2018-03-03 07:07] LABS: ALB/GLOB RATIO 0.7 (1.0-2.1); ALBUMIN 2.5 g/dL (3.5-5.0); ALT/SGPT 32 U/L (21-72); AST/SGOT 72 U/L (17-59); BLOOD UREA NITROGEN 12 mg/dl (9-20); CALCIUM 7.7 mg/dL (8.4-10.2); GFR NON-AFRICAN AMERICAN > 60
[2018-03-03 07:15] LABS: IRON 39 ug/dL (49-181)
[2018-03-03 07:25] LABS: % IRON SATURATION 11 % (20-55); TOTAL IRON BINDING CAPACITY 353 ug/dL (250-450)
--- NOTE | 2018-03-03 08:29 | RAD ---
Date of service: 03/02/2018 HISTORY: f fever COMPARISON: 03/01/2018. FINDINGS: LUNGS: The lungs are well inflated and clear. PLEURA: No significant pleural effusion identified, no pneumothorax apparent. CARDIOVASCULAR: Normal. OSSEOUS STRUCTURES: No significant abnormalities. VISUALIZED UPPER ABDOMEN: Normal. OTHER FINDINGS: None. IMPRESSION: No active pulmonary disease.
[2018-03-03] MEDS: Pantoprazole 40 mg EC Tab PO SCH (08:46)
[2018-03-03] MEDS: Multivitamin With Minerals Tab PO SCH (08:47)
--- NOTE | 2018-03-03 10:23 | CP.PCM.PN ---
Subjective - Date & Time of Evaluation Date of Evaluation: 03/03/18 Time of Evaluation: 09:50 - Subjective Subjective: Patient seen and examined during rounds. Patient is awake, alert and oriented but somewhat drowsy. Reports he has non productive cough x 2 days. Last fever of 102.4 F at 1900 last night. Denies any chest pain, dyspnea, abdominal pain, nausea, vomiting, dysuria or chills. Objective - Vital Signs/Intake and Output Vital Signs (last 24 hours): Temp Pulse Resp BP Pulse Ox 98.7 F 95 H 20 102/57 L 97 03/03/18 08:46 03/03/18 08:46 03/03/18 08:46 03/03/18 08:46 03/03/18 08:46 Intake and Output: 03/03/18 03/03/18 06:59 18:59 Intake Total 1980 Output Total 900 Balance 1080 - Medications Medications: Current Medications Acetaminophen (Tylenol 325mg Tab) 650 mg PO Q6 PRN PRN Reason: Pain, moderate (4-7) Chlordiazepoxide (Librium) 25 mg PO Q8 [facility] Last Admin: 03/03/18 08:51 Dose: 25 mg Folic Acid (Folic Acid) 1 mg PO DAILY [facility] Last Admin: 03/03/18 08:51 Dose: 1 mg Piperacillin Sod/Tazobactam (Sod 3.375 gm/ Sodium Chloride) 100 mls @ 100 mls/ hr IVPB Q6 JANNIE PRN Reason: Protocol Last Admin: 03/03/18 03:28 Dose: 100 mls/hr Sodium Chloride (Sodium Chloride 0.9%) 1,000 mls @ 125 mls/hr IV .Q8H [facility] Stop: 03/03/18 20:44 Last Admin: 03/03/18 03:47 Dose: Not Given Vancomycin HCl 1 gm/ Sodium (Chloride) 250 mls @ 166.667 mls/hr IVPB Q12 JANNIE PRN Reason: Protocol Last Admin: 03/03/18 08:51 Dose: 166.667 mls/hr Lactulose (Enulose) 20 gm PO BID [facility] Levetiracetam (Keppra) 500 mg PO Q12H [facility] Last Admin: 03/03/18 08:46 Dose: 500 mg Lorazepam (Ativan) 1 mg IVP Q6 PRN PRN Reason: Agitation Multivitamins/Minerals (Therapeutic-M Tab) 1 tab PO DAILY [facility] Last Admin: 03/03/18 08:47 Dose: 1 tab Pantoprazole Sodium (Protonix Ec Tab) 40 mg PO DAILY [facility] Last Admin: 03/03/18 08:46 Dose: 40 mg Thiamine HCl (Vitamin B1 Tab) 100 mg PO DAILY [facility] Last Admin: 03/03/18 08:47 Dose: 100 mg - Labs Labs: 03/03/18 05:50 03/03/18 05:50 - Constitutional Appears: Non-toxic, No Acute Distress - Head Exam Additional comments: Intact vikas on occipital head. - Eye Exam Eye Exam: EOMI, PERRL Additional comments: Mild swelling on B/L eyelids. No eye discharge. - ENT Exam ENT Exam: Mucous Membranes Dry - Neck Exam Neck Exam: Full ROM. absent: Meningismus - Respiratory Exam Respiratory Exam: Clear to Ausculation Bilateral. absent: Rales, Rhonchi, Wheezes, Respiratory Distress - Cardiovascular Exam Cardiovascular Exam: REGULAR RHYTHM, RRR, +S1, +S2 - GI/Abdominal Exam GI & Abdominal Exam: Soft, Normal Bowel Sounds. absent: Guarding, Rigid, Tenderness - Extremities Exam Extremities Exam: Normal Capillary Refill, Normal Inspection. absent: Calf Tenderness, Pedal Edema - Back Exam Back Exam: absent: CVA tenderness (L), CVA tenderness (R) - Neurological Exam Neurological Exam: Alert, Awake Additional comments: Neg asterixis. - Skin Skin Exam: Normal Color, Warm. absent: Petechiae, Rash Assessment and Plan - Assessment and Plan (Free Text) Assessment: Assessment: 52 yr old male with PMHx includes etoh abuse disorder, liver cirrhosis, esophageal ulcers, unwitnessed seizures admitted for suspected pneumonia, imbalance/abnormal gait with head trauma s/p 2 falls. Suspected pneumonia -Last fever of 102.4 F at 1900 last night. -c/w NS IV fluids -c/w Zosyn 3.375mg IV Q6, Vancomycin 1gm IV Q12 -cxr: neg for infiltrate -F/U Chest CT -ID consult appreciated: Dr. Palma -f/u blood and urine culture Abnormal Gait/Imbalance -acute, s/p 2 falls with head injury -Head CT: no mass effect or edema, interval hyperdensities in the scalp over right paracentral descend parietal-occipital region , minimal soft tissue scalp fullness; no intracranial hemorrhage -Neurology consult appreciated: Dr. Allison -fall precautions Hyperammonemia -Pt is AAO but somewhat drowsy -Ammonia: 89 -Start lactulose 20 mg po bid -Monitor Normocytic anemia -asymptomatic, chronic -likely anemia of chronic disease with iron deficiency -Hgb ast baseline 8.2 -f/u next day CBC Cirrhosis -chronic, stable -likely secondary to chronic alcohol abuse -MELD score: 14, 6% 3 month mortality -Child-Squires score: 9, Class B, abdominal surgery sharad-operative mortality 30% ETOH abuse -chronic -serum alcohol <10 today -CIWA 0 -Librium 25 mg PO Q8, Ativan 1 mg IPV q6h prn, Thiamine 100mg PO QD, Folic acid 1mg PO QD, multivitamin 1 tab PO QD Pancytopenia -chronic, stable -likely 2/2 to live failure vs bone marrow suppression 2/2 to etoh abuse/liver failure -f/u next day CBC Hx of Seizures -chronic, stable -Keppra 500mg PO Q12 Deconditioning -acute -PT/OT DVT prophylaxis -SCDs for now
[2018-03-03] MEDS ORDERED: Potassium Chloride 20 mEq ER Tab PO ONE (14:49)
[2018-03-04] MEDS: Piperacillin/Tazobact 3.375 GM in Sodium Chloride 0.9% 100 ML IVPB SCH ×4 (03:46→22:32)
[2018-03-04 05:57] LABS: HEMOGLOBIN 7.6 g/dL (12.0-18.0); MEAN CELL VOLUME 87.2 fl (80.0-94.0); MEAN CORPUSCULAR HEMOGLOBIN 28.6 pg (27.0-31.0); MEAN CORPUSCULAR HGB CONC 32.8 g/dL (33.0-37.0); RBC 2.65 Mil/uL (4.40-5.90); RED CELL DISTRIBUTION WIDTH 20.4 % (11.5-14.5)
[2018-03-04 06:30] LABS: ALB/GLOB RATIO 0.7 (1.0-2.1); ALBUMIN 2.3 g/dL (3.5-5.0); ALT/SGPT 33 U/L (21-72); AST/SGOT 61 U/L (17-59); BLOOD UREA NITROGEN 13 mg/dl (9-20); CALCIUM 7.7 mg/dL (8.4-10.2); GFR NON-AFRICAN AMERICAN > 60
[2018-03-04 06:40] LABS: WHITE BLOOD COUNT 1.9 K/uL (4.8-10.8)
[2018-03-04] MEDS: Multivitamin With Minerals Tab PO SCH (08:11)
[2018-03-04] MEDS: Pantoprazole 40 mg EC Tab PO SCH (08:12)
--- NOTE | 2018-03-04 08:23 | CP.PCM.PN ---
Subjective - Date & Time of Evaluation Date of Evaluation: 03/04/18 Time of Evaluation: 08:10 - Subjective Subjective: Patient seen and examined this morning. Patient is AAO X3. Has been afebrile since the admission. Reports lower abdominal pain since last night. Denies nausea, vomiting, bloody stool,fever or chills. Denies chest pain, dyspnea or calf pain. Objective - Vital Signs/Intake and Output Vital Signs (last 24 hours): Temp Pulse Resp BP Pulse Ox 99.0 F 79 19 110/70 98 03/04/18 00:00 03/04/18 00:00 03/04/18 00:00 03/04/18 00:00 03/04/18 00:29 Intake and Output: 03/04/18 03/04/18 06:59 18:59 Intake Total 715 Output Total 600 Balance 115 - Medications Medications: Current Medications Acetaminophen (Tylenol 325mg Tab) 650 mg PO Q6 PRN PRN Reason: Pain, moderate (4-7) Last Admin: 03/04/18 06:07 Dose: 650 mg Chlordiazepoxide (Librium) 25 mg PO Q8 JANNIE Last Admin: 03/04/18 08:12 Dose: 25 mg Folic Acid (Folic Acid) 1 mg PO DAILY [facility] Last Admin: 03/04/18 08:12 Dose: 1 mg Piperacillin Sod/Tazobactam (Sod 3.375 gm/ Sodium Chloride) 100 mls @ 100 mls/ hr IVPB Q6 JANNIE PRN Reason: Protocol Last Admin: 03/04/18 03:46 Dose: 100 mls/hr Vancomycin HCl 1 gm/ Sodium (Chloride) 250 mls @ 166.667 mls/hr IVPB Q12 JANNIE PRN Reason: Protocol Last Admin: 03/04/18 08:13 Dose: 166.667 mls/hr Lactulose (Enulose) 20 gm PO BID [facility] Last Admin: 03/04/18 08:13 Dose: 20 gm Levetiracetam (Keppra) 500 mg PO Q12H JANNIE Last Admin: 03/04/18 08:12 Dose: 500 mg Lorazepam (Ativan) 1 mg IVP Q6 PRN PRN Reason: Agitation Last Admin: 03/03/18 13:33 Dose: 1 mg Magnesium Oxide (Mag-Ox) 400 mg PO BID [facility] Multivitamins/Minerals (Therapeutic-M Tab) 1 tab PO DAILY [facility] Last Admin: 03/04/18 08:11 Dose: 1 tab Pantoprazole Sodium (Protonix Ec Tab) 40 mg PO DAILY [facility] Last Admin: 03/04/18 08:12 Dose: 40 mg Thiamine HCl (Vitamin B1 Tab) 100 mg PO DAILY [facility] Last Admin: 03/04/18 08:13 Dose: 100 mg - Labs Labs: 03/04/18 05:35 03/04/18 05:35 - Constitutional Appears: Non-toxic, No Acute Distress, Unkempt - Head Exam Additional comments: Intact vikas on occipital head. - Eye Exam Eye Exam: EOMI, Normal appearance - ENT Exam ENT Exam: Mucous Membranes Moist - Neck Exam Neck Exam: Full ROM. absent: Meningismus - Respiratory Exam Respiratory Exam: Clear to Ausculation Bilateral, NORMAL BREATHING PATTERN. absent: Rales, Rhonchi, Wheezes, Respiratory Distress - Cardiovascular Exam Cardiovascular Exam: REGULAR RHYTHM, +S1, +S2 - GI/Abdominal Exam GI & Abdominal Exam: Soft, Tenderness (mild tenderness in B/L lower abdomen. Mild distension. No guarding or rigidity.), Normal Bowel Sounds. absent: Guarding, Rebound - Extremities Exam Extremities Exam: Normal Capillary Refill, Normal Inspection. absent: Calf Tenderness, Pedal Edema - Back Exam Back Exam: absent: CVA tenderness (L), CVA tenderness (R) - Neurological Exam Neurological Exam: Alert, Awake - Psychiatric Exam Psychiatric exam: Normal Affect - Skin Skin Exam: Normal Color, Warm. absent: Petechiae Assessment and Plan - Assessment and Plan (Free Text) Assessment: Assessment: 52 yr old male with PMHx includes etoh abuse disorder, liver cirrhosis, esophageal ulcers, unwitnessed seizures admitted for suspected pneumonia, imbalance/abnormal gait with head trauma s/p 2 falls. Suspected pneumonia -Last fever of 102.4 F at 1900 on 03/02/18 -c/w Zosyn 3.375mg IV Q6, Vancomycin 1gm IV Q12 -cxr: neg for infiltrate -F/U Chest CT -ID consult appreciated: Dr. Palma -urine culture no growth -Blood cx: no growth after 24 hours. Abdominal pain -hx liver cirrhosis secondary to EtOH use disorder -F/U CT abdomen and pelvis Cirrhosis -chronic, stable -likely secondary to chronic alcohol abuse -MELD score: 14, 6% 3 month mortality -Child-Squires score: 9, Class B, abdominal surgery sharad-operative mortality 30% Abnormal Gait/Imbalance -acute, s/p 2 falls with head injury -Head CT: no mass effect or edema, interval hyperdensities in the scalp over right paracentral descend parietal-occipital region , minimal soft tissue scalp fullness; no intracranial hemorrhage -Neurology consult appreciated: Dr. Allison -fall precautions -F/U EEG Pancytopenia -chronic, stable -likely 2/2 to live failure vs bone marrow suppression 2/2 to etoh abuse/liver failure -f/u next day CBC Hyperammonemia (resolved) -Pt is AAO but somewhat drowsy -Ammonia: 89 on 03/03/18 -Ammonia: 59 this morning. -c/w lactulose 20 mg po bid ETOH abuse -chronic -serum alcohol <10 today -CIWA 0 -Librium 25 mg PO Q12, Ativan 1 mg IPV q6h prn, Thiamine 100mg PO QD, Folic acid 1mg PO QD, multivitamin 1 tab PO QD Hx of Seizures -chronic, stable -Keppra 500mg PO Q12 Deconditioning -acute -PT/OT DVT prophylaxis -SCDs for now
[2018-03-04] MEDS ORDERED: Iohexol 240 (50 ml) PO ONE (09:52)
[2018-03-04] MEDS ORDERED: Oxycodone/Acetaminophen 5/325 mg Tab PO PRN (09:53)
--- NOTE | 2018-03-04 13:17 | CP.PCM.PN ---
Subjective - Date & Time of Evaluation Date of Evaluation: 03/04/18 Time of Evaluation: 13:17 - Subjective Subjective: I D NOTE HOMELESS MALE WHO HAS HAS MANY ADMISSIONS TO [facility] HAD MULTIPLE FALLS PRIOR TO TO THIS ADMISSION HAD CT OF CHEST AND CT SCAN OF ABDOMEN TODAY,HAD FEVER IN ER. HAS PANCYTOPENIA ,LIKELY FROM LIVER DISEASE SERUM AMMONIA IS [address] OF CHEST TODAY AND AWAITING ABDOMEN CONTINUE SAME ANTIBIOTIC MANAGEMENT Objective - Vital Signs/Intake and Output Vital Signs (last 24 hours): Temp Pulse Resp BP Pulse Ox 98.5 F 74 18 115/67 98 03/04/18 08:31 03/04/18 08:31 03/04/18 08:31 03/04/18 08:31 03/04/18 08:31 Intake and Output: 03/04/18 03/04/18 06:59 18:59 Intake Total 715 Output Total 600 Balance 115 - Medications Medications: Current Medications Acetaminophen (Tylenol 325mg Tab) 650 mg PO Q6 PRN PRN Reason: Pain, moderate (4-7) Last Admin: 03/04/18 06:07 Dose: 650 mg Chlordiazepoxide (Librium) 25 mg PO Q12 JANNIE Folic Acid (Folic Acid) 1 mg PO DAILY [facility] Last Admin: 03/04/18 08:12 Dose: 1 mg Piperacillin Sod/Tazobactam (Sod 3.375 gm/ Sodium Chloride) 100 mls @ 100 mls/ hr IVPB Q6 JANNIE PRN Reason: Protocol Last Admin: 03/04/18 11:54 Dose: 100 mls/hr Vancomycin HCl 1 gm/ Sodium (Chloride) 250 mls @ 166.667 mls/hr IVPB Q12 JANNIE PRN Reason: Protocol Last Admin: 03/04/18 08:13 Dose: 166.667 mls/hr Lactulose (Enulose) 20 gm PO BID [facility] Last Admin: 03/04/18 08:13 Dose: 20 gm Levetiracetam (Keppra) 500 mg PO Q12H JANNIE Last Admin: 03/04/18 08:12 Dose: 500 mg Lorazepam (Ativan) 1 mg IVP Q6 PRN PRN Reason: Agitation Last Admin: 03/03/18 13:33 Dose: 1 mg Magnesium Oxide (Mag-Ox) 400 mg PO BID [facility] Multivitamins/Minerals (Therapeutic-M Tab) 1 tab PO DAILY [facility] Last Admin: 03/04/18 08:11 Dose: 1 tab Oxycodone/Acetaminophen (Percocet 5/325 Mg Tab) 1 tab PO Q6 PRN PRN Reason: Pain, severe (8-10) Stop: 03/07/18 09:54 Pantoprazole Sodium (Protonix Ec Tab) 40 mg PO DAILY [facility] Last Admin: 03/04/18 08:12 Dose: 40 mg Thiamine HCl (Vitamin B1 Tab) 100 mg PO DAILY [facility] Last Admin: 03/04/18 08:13 Dose: 100 mg - Labs Labs: 03/04/18 05:35 03/04/18 05:35
--- NOTE | 2018-03-04 14:29 | CT ---
Date of service: 03/04/2018 PROCEDURE: CT Chest without contrast HISTORY: fever and cough COMPARISON: None available. TECHNIQUE: Contiguous axial images were obtained through the chest without intravenous contrast enhancement. Sagittal and coronal reconstructions were performed. Radiation dose (DLP): 368.60 mGy-cm. This CT exam was performed using one or more of the following dose reduction techniques: Automated exposure control, adjustment of the mA and/or kV according to patient size, and/or use of iterative reconstruction technique. FINDINGS: LUNGS: Minimal bilateral basilar dependent atelectasis identified. No alveolitis bilaterally. Central airways appear clear. MEDIASTINUM: Unremarkable thoracic aorta. No aneurysm. Normal sized heart. Main pulmonary artery unremarkable. No vascular congestion. Mildly large pre bronchial lymph nodes is appreciated anterior to the right mainstem bronchus measuring 2.0 x 1.0 cm. Otherwise shotty paratracheal and aorta pulmonary window lymph nodes are identified. No significant lymphadenopathy grossly evident. Lack venous contrast limits evaluation of the mediastinum. PLEURA: No pleural fluid. No pneumothorax. BONES: No fracture. No destructive lesion. UPPER ABDOMEN: Various other upper abdominal varices are identified role sulcal splenomegaly up to 16.4 cm. Patient is also seen to be status post TIPS shunt placement with cirrhotic nodular liver pattern identified. OTHER FINDINGS: None. IMPRESSION: Minimal bilateral basilar dependent atelectasis as well as minimal bullous changes in the bilateral pulmonary apices. No definitive mass, alveolitis pleural or pericardial effusion. Limited mediastinal lymphadenopathy identified as discussed above. Cirrhotic liver or status post TIPS with the areas varices identified once again in the upper abdomen as imaged as well as splenomegaly.
[2018-03-04 16:49] VITALS: O2SAT 97
[2018-03-04] MEDS ORDERED: Sodium Chloride 0.9% 50 ML IV ONE (17:31)
[2018-03-04] MEDS ORDERED: Iohexol 300 100 ML IJ ONE (17:31)
[2018-03-04] MEDS: Magnesium Oxide 400 mg Tab UD PO SCH ×2 (18:35→18:36)
--- NOTE | 2018-03-04 18:39 | CT ---
Date of service: 03/04/2018 PROCEDURE: CT Abdomen and Pelvis with contrast HISTORY: abdominal pain / cirrhosis COMPARISON: None. TECHNIQUE: Contrast dose: 90 cc Omnipaque 300 Radiation dose: Total exam DLP = 662.71 mGy-cm. This CT exam was performed using one or more of the following dose reduction techniques: Automated exposure control, adjustment of the mA and/or kV according to patient size, and/or use of iterative reconstruction technique. FINDINGS: LOWER THORAX: Platelike atelectasis at the lung bases, findings identified on concurrent CT of the thorax. LIVER: Portosystemic shunt identified in satisfactory position. Patent portal venous system. Large venous varicosities throughout the upper abdomen and in particular left upper quadrant. Smaller varices are seen at gastroesophageal junction. No evidence of portal vein thrombosis. GALLBLADDER AND BILE DUCTS: Gallstones. Trace pericholecystic fluid identified. PANCREAS: Unremarkable. No gross lesion or ductal dilatation. SPLEEN: Massive splenomegaly. The spleen measures 15.9 x 5.4 x 23 cm. ADRENALS: Unremarkable. No mass. KIDNEYS AND URETERS: Unremarkable. No hydronephrosis. No solid mass. VASCULATURE: Unremarkable. No aortic aneurysm. BOWEL: Constipation without fecal impaction or obstruction. APPENDIX: Normal appendix. PERITONEUM: Unremarkable. No free fluid. No free air. LYMPH NODES: Unremarkable. No enlarged lymph nodes. BLADDER: Unremarkable. REPRODUCTIVE: Unremarkable. BONES: No acute fracture. OTHER FINDINGS: None. IMPRESSION: Hepatosplenomegaly, findings consist with portal hypertension. Patent portal venous system. Tips catheter in satisfactory position. Cholelithiasis without CT evidence of acute cholecystitis. Additional benign and/or incidental findings described above.
[2018-03-05] MEDS: Piperacillin/Tazobact 3.375 GM in Sodium Chloride 0.9% 100 ML IVPB SCH ×2 (04:17→12:52)
[2018-03-05 08:04] LABS: ALB/GLOB RATIO 0.6 (1.0-2.1); ALBUMIN 2.4 g/dL (3.5-5.0); ALT/SGPT 30 U/L (21-72); AST/SGOT 63 U/L (17-59); BLOOD UREA NITROGEN 12 mg/dl (9-20); CALCIUM 7.8 mg/dL (8.4-10.2); GFR NON-AFRICAN AMERICAN > 60
[2018-03-05 08:06] VITALS: BP 112/67; PULSE 81; RESP 20; TEMP 97.9
[2018-03-05 08:06] LABS: BASO % 0.5 % (0.0-2.0); EOS # 0.3 K/uL (0.0-0.7); EOS % 11.8 % (0.0-4.0); HEMOGLOBIN 7.8 g/dL (12.0-18.0); LYMPH # 0.6 K/uL (1.0-4.3); LYMPH % 22.6 % (20.0-40.0); MEAN CELL VOLUME 86.7 fl (80.0-94.0); MEAN CORPUSCULAR HEMOGLOBIN 28.6 pg (27.0-31.0); MEAN PLATELET VOLUME 8.6 fl (7.2-11.7); MONO # 0.3 K/uL (0.0-0.8); MONO % 10.9 % (0.0-10.0); NEUT # 1.3 K/uL (1.8-7.0); NEUT % 54.2 % (50.0-75.0); RBC 2.73 Mil/uL (4.40-5.90); RED CELL DISTRIBUTION WIDTH 20.2 % (11.5-14.5); WHITE BLOOD COUNT 2.5 K/uL (4.8-10.8)
[2018-03-05] MEDS: Multivitamin With Minerals Tab PO SCH (09:40)
[2018-03-05] MEDS: Pantoprazole 40 mg EC Tab PO SCH (09:40)
[2018-03-05] MEDS: Magnesium Oxide 400 mg Tab UD PO SCH (09:40)
[2018-03-05] MEDS ORDERED: Magnesium Sulfate 1 gm in D5W 1 GM/100 ML BAG IVPB ONE (10:34)
--- NOTE | 2018-03-05 13:11 | MRI ---
Date of service: 03/05/2018 PROCEDURE: MRI BRAIN WITHOUT CONTRAST HISTORY: r/o CVA COMPARISON: CT head 03/02/2018 TECHNIQUE: Multiplanar, multisequence MR images of the brain were obtained without intravenous contrast enhancement. Motion artifact limits the examination. FINDINGS: HEMORRHAGE: None DWI: No evidence of an acute or early subacute infarction. BRAIN PARENCHYMA: No mass effect or edema. Diffuse cerebral cortical atrophy is noted. Scattered areas of small vessel change are seen in the periventricular and deep white matter tracts, and both of these greater than expected for the patient's stated age. VENTRICLES: Unremarkable. No hydrocephalus. CRANIUM: Unremarkable. ORBITS: Grossly unremarkable. PARANASAL SINUSES/MASTOIDS: There is evidence of vizl-ko-edscovwo areas of mucosal change in the paranasal sinuses with moderate areas of high signal also seen in the left mastoid air cells and milder amount in the right mastoid air cells. VASCULAR SYSTEM: Skull base flow voids intact. OTHER FINDINGS: No cerebellopontine angle mass is identified. IMPRESSION: No evidence of recent infarct or intracranial hemorrhage. Cerebral cortical atrophy and small vessel changes greater than expected for the patient's age.
--- NOTE | 2018-03-05 14:06 | CP.PCM.PN ---
Subjective - Date & Time of Evaluation Date of Evaluation: 03/05/18 Time of Evaluation: 10:10 Objective - Vital Signs/Intake and Output Vital Signs (last 24 hours): Temp Pulse Resp BP Pulse Ox 97.9 F 81 20 112/67 97 03/05/18 08:03 03/05/18 08:03 03/05/18 08:03 03/05/18 08:03 03/05/18 08:03 Intake and Output: 03/05/18 03/05/18 06:59 18:59 Intake Total 780 Output Total 800 Balance -20 - Medications Medications: Current Medications Acetaminophen (Tylenol 325mg Tab) 650 mg PO Q6 PRN PRN Reason: Pain, moderate (4-7) Last Admin: 03/05/18 09:56 Dose: 650 mg Ferrous Sulfate (Feosol) 325 mg PO BID [facility] Last Admin: 03/05/18 09:38 Dose: 325 mg Folic Acid (Folic Acid) 1 mg PO DAILY [facility] Last Admin: 03/05/18 09:38 Dose: 1 mg Piperacillin Sod/Tazobactam (Sod 3.375 gm/ Sodium Chloride) 100 mls @ 100 mls/ hr IVPB Q6 JANNIE PRN Reason: Protocol Last Admin: 03/05/18 12:52 Dose: 100 mls/hr Vancomycin HCl 1 gm/ Sodium (Chloride) 250 mls @ 166.667 mls/hr IVPB Q12 JANNIE PRN Reason: Protocol Last Admin: 03/05/18 09:40 Dose: 166.667 mls/hr Lactulose (Enulose) 20 gm PO BID [facility] Last Admin: 03/05/18 09:37 Dose: 20 gm Levetiracetam (Keppra) 750 mg PO Q12H [facility] Last Admin: 03/05/18 09:39 Dose: 750 mg Lorazepam (Ativan) 1 mg IVP Q6 PRN PRN Reason: Agitation Last Admin: 03/04/18 23:01 Dose: 1 mg Magnesium Oxide (Mag-Ox) 400 mg PO BID [facility] Last Admin: 03/05/18 09:40 Dose: 400 mg Multivitamins/Minerals (Therapeutic-M Tab) 1 tab PO DAILY [facility] Last Admin: 03/05/18 09:40 Dose: 1 tab Oxycodone/Acetaminophen (Percocet 5/325 Mg Tab) 1 tab PO Q6 PRN PRN Reason: Pain, severe (8-10) Stop: 03/07/18 09:54 Pantoprazole Sodium (Protonix Ec Tab) 40 mg PO DAILY [facility] Last Admin: 03/05/18 09:40 Dose: 40 mg Thiamine HCl (Vitamin B1 Tab) 100 mg PO DAILY [facility] Last Admin: 03/05/18 09:42 Dose: 100 mg - Labs Labs: 03/05/18 06:30 03/05/18 06:30
--- NOTE | 2018-03-05 14:10 | CP.PCM.DIS ---
Provider - Provider Date of Admission: 03/02/18 19:08 Attending physician: Rajani Colin MD Time Spent in preparation of Discharge (in minutes): 45 Diagnosis - Discharge Diagnosis (1) SIRS (systemic inflammatory response syndrome) Status: Resolved (2) Unsteady gait Status: Chronic (3) History of seizure Status: Chronic (4) Liver cirrhosis, alcoholic Status: Chronic Priority: High (5) Pancytopenia Status: Chronic (6) Multiple falls Status: Chronic (7) Head trauma Status: Resolved (8) Alcohol use disorder Status: Chronic (9) Iron deficiency anemia Status: Chronic (10) Scalp laceration Status: Resolved Hospital Course - Lab Results Lab Results: Micro Results 03/02/18 19:05 Blood Blood Culture - Preliminary NO GROWTH AFTER 48 HOURS 03/02/18 18:30 Blood Blood Culture - Preliminary NO GROWTH AFTER 48 HOURS 03/02/18 18:15 Urine Urine Culture - Final No Growth (<1,000 CFU/ML) Most Recent Lab Values WBC 2.5 K/uL (4.8-10.8) L 03/05/18 06:30 RBC 2.73 Mil/uL (4.40-5.90) L 03/05/18 06:30 Hgb 7.8 g/dL (12.0-18.0) L 03/05/18 06:30 Hct 23.6 % (35.0-51.0) L 03/05/18 06:30 MCV 86.7 fl (80.0-94.0) 03/05/18 06:30 MCH 28.6 pg (27.0-31.0) 03/05/18 06:30 MCHC 33.0 g/dL (33.0-37.0) 03/05/18 06:30 RDW 20.2 % (11.5-14.5) H 03/05/18 06:30 Plt Count 48 K/uL (130-400) L 03/05/18 06:30 MPV 8.6 fl (7.2-11.7) 03/05/18 06:30 Neut % (Auto) 54.2 % (50.0-75.0) 03/05/18 06:30 Lymph % (Auto) 22.6 % (20.0-40.0) 03/05/18 06:30 [place] % (Auto) 10.9 % (0.0-10.0) H 03/05/18 06:30 Eos % (Auto) 11.8 % (0.0-4.0) H 03/05/18 06:30 Baso % (Auto) 0.5 % (0.0-2.0) 03/05/18 06:30 Neut # (Auto) 1.3 K/uL (1.8-7.0) L 03/05/18 06:30 Lymph # (Auto) 0.6 K/uL (1.0-4.3) L 03/05/18 06:30 [place] # (Auto) 0.3 K/uL (0.0-0.8) 03/05/18 06:30 Eos # (Auto) 0.3 K/uL (0.0-0.7) 03/05/18 06:30 Baso # (Auto) 0.0 K/uL (0.0-0.2) 03/05/18 06:30 pO2 69 mm/Hg (30-55) H 03/02/18 19:00 VBG pH 7.49 (7.32-7.43) H 03/02/18 19:00 VBG pCO2 27 mmHg (40-60) L 03/02/18 19:00 VBG HCO3 23.8 mmol/L 03/02/18 19:00 VBG Total CO2 21.4 mmol/L (22-28) L 03/02/18 19:00 VBG O2 Sat (Calc) 100.7 % (40-65) H 03/02/18 19:00 VBG Base Excess -1.4 mmol/L (0.0-2.0) L 03/02/18 19:00 VBG Potassium 3.4 mmol/L (3.6-5.2) L 03/02/18 19:00 Sodium 133.0 mmol/L (132-148) 03/02/18 19:00 Chloride 108.0 mmol/L (98-107) H 03/02/18 19:00 Glucose 134 mg/dL (75-110) H 03/02/18 19:00 Lactate 1.5 mmol/L (0.7-2.1) 03/02/18 19:00 FiO2 21.0 % 03/02/18 19:00 Sodium 140 mmol/l (132-148) 03/05/18 06:30 Potassium 3.8 MMOL/L (3.6-5.0) 03/05/18 06:30 Chloride 114 mmol/L (98-107) H 03/05/18 06:30 Carbon Dioxide 22 mmol/L (22-30) 03/05/18 06:30 Anion Gap 8 (10-20) L 03/05/18 06:30 BUN 12 mg/dl (9-20) 03/05/18 06:30 Creatinine 0.6 mg/dl (0.8-1.5) L 03/05/18 06:30 Est GFR ( Amer) > 60 03/05/18 06:30 Est GFR (Non-Af Amer) > 60 03/05/18 06:30 Random Glucose 95 mg/dL (75-110) 03/05/18 06:30 Calcium 7.8 mg/dL (8.4-10.2) L 03/05/18 06:30 Phosphorus 4.2 mg/dl (2.5-4.5) 03/05/18 06:30 Magnesium 1.4 MG/DL (1.6-2.3) L 03/05/18 06:30 Iron 39 ug/dL (49-181) L 03/03/18 05:50 TIBC 353 ug/dL (250-450) 03/03/18 05:50 % Saturation 11 % (20-55) L 03/03/18 05:50 Total Bilirubin 1.4 mg/dl (0.2-1.3) H 03/05/18 06:30 AST 63 U/L (17-59) H 03/05/18 06:30 ALT 30 U/L (21-72) 03/05/18 06:30 Alkaline Phosphatase 132 U/L (38-126) H 03/05/18 06:30 Ammonia 59 umo/L (16-60) 03/04/18 05:35 Lactate Dehydrogenase 618 U/L (313-618) 03/02/18 18:15 Total Protein 6.1 G/DL (6.3-8.2) L 03/05/18 06:30 Albumin 2.4 g/dL (3.5-5.0) L 09/15/18 06:30 Globulin 3.7 gm/dL (2.2-3.9) 03/05/18 06:30 Albumin/Globulin Ratio 0.6 (1.0-2.1) L 03/05/18 06:30 Lipase 227 U/L (23-300) 03/02/18 18:15 Procalcitonin 0.05 NG/ML (0.19-0.49) L 03/03/18 05:50 Prolactin 12.8 ng/mL (3.7-17.9) 03/03/18 07:22 Venous Blood Potassium 3.4 mmol/L (3.6-5.2) L 03/02/18 19:00 Urine Color Yellow (YELLOW) 03/02/18 18:15 Urine Clarity Slighty-cloudy (Clear) 03/02/18 18:15 Urine pH 7.0 (5.0-8.0) 03/02/18 18:15 Ur Specific [place] 1.016 (1.003-1.030) 03/02/18 18:15 Urine Protein Negative mg/dL (NEGATIVE) 03/02/18 18:15 Urine Glucose (UA) Neg mg/dL (Normal) 03/02/18 18:15 Urine Ketones Negative mg/dL (NEGATIVE) 03/02/18 18:15 Urine Blood Small (NEGATIVE) 03/02/18 18:15 Urine Nitrate Negative (NEGATIVE) 03/02/18 18:15 Urine Bilirubin Negative (NEGATIVE) 03/02/18 18:15 Urine Urobilinogen 4.0 mg/dL (0.2-1.0) 03/02/18 18:15 Ur Leukocyte Esterase Neg [place]/uL (Negative) 03/02/18 18:15 Urine RBC (Auto) 5 /hpf (0-3) H 03/02/18 18:15 Urine Microscopic WBC 1 /hpf (0-5) 03/02/18 18:15 Urine Bacteria Rare (<OCC) 03/02/18 18:15 Vancomycin Trough 6.5 ug/mL (5.0-10.0) 03/03/18 19:22 Alcohol, Quantitative < 10 mg/dl (0-10) 03/02/18 18:15 HIV 1&2 Antibody Screen Negative (NEGATIVE) 03/03/18 05:50 Blood Type O POSITIVE 03/02/18 18:15 Antibody Screen Negative 03/02/18 18:15 BBK History Checked Patient has bt 03/02/18 18:15 - Hospital Course Hospital Course: 52 yr old male presented to ED on 03/02/18 with complaint of head trauma and bleeding s/p 2 falls today. Reports he was in the street with friends and fell backwards twice and hit the back of his head. Patient reports he does not know why he fell, he feels "off balance" but not dizzy. PMHx includes etoh abuse disorder, liver cirrhosis, esophageal ulcers, unwitnessed seizures. Patient denies chills, nausea, vomiting, diarrhea, visual changes. Patient had 8 vikas placed in back of his head. Patient was found to have elevated temperatures of 102.4 F with tachycardia. Patient was admitted to inpatient service on 03/02/18 for SIRS and suspected pneumonia. Patient was treated with vancomycin and zosyn while the hospital and Dr. Palma was consulted. Neuro was also consulted for hx repeated falls. Patient has been afebrile since the admission. CT chest and A/P were negative for any acute pathology. This morning , pt was found to have slight droop on his left sided face with slight weakness to left arm. Patient also had slight drift on left hand. Stat MRI was negative for CVA. Patient's physical findings are likely chronic probably secondary to alcohol use disorder. PT was consulted and was recommended to have a walker. Patient is medically stable to discharge home with a walker. Discharge Exam - Head Exam Head Exam: absent: NORMAL INSPECTION (8 vikas removed from posterior scalp. Patient tolerated well. No signs of infection.) - Eye Exam Eye Exam: Normal appearance - ENT Exam ENT Exam: Mucous Membranes Moist - Neck Exam Neck exam: Full Rom - Respiratory Exam Respiratory Exam: Clear to PA & Lateral, NORMAL BREATHING PATTERN. absent: Rales, Rhonchi, Wheezes - Cardiovascular Exam Cardiovascular Exam: REGULAR RHYTHM, RRR, +S1, +S2 - GI/Abdominal Exam GI & Abdominal Exam: Normal Bowel Sounds, Soft. absent: Tenderness - Extremities Exam Extremities exam: normal inspection, pedal edema - Neurological Exam Neurological exam: Abnormal Gait (chronic), Alert, Oriented x3 Additional comments: Chronic slight slurring of speech. - Psychiatric Exam Psychiatric exam: Normal Affect, Normal Mood - Skin Skin Exam: Normal Color, Warm Discharge Plan - Discharge Medications Prescriptions: Lactulose [Enulose] 20 gm PO BID #40 udc levETIRAcetam [Keppra] 500 mg PO Q12H #60 tab Pantoprazole [Protonix EC Tab] 40 mg PO DAILY #30 ect - Follow Up Plan Condition: GUARDED Disposition: HOME/ ROUTINE Referrals: [facility] [Provider Group]
== END 2018-03-05 16:15 | disposition home or self-care (01) | DRG 901 ==
LOC: H.ER 16:07 → H.ERHOLD 19:08 → H.MEDSURG1 23:05
PROVIDERS: ADMIT Hospitalist; ATTEND Hospitalist
DX: R65.10 Systemic inflammatory response syndrome (SIRS) of non-infectious origin without acute organ dysfunction (principal); D61.818 Other pancytopenia; K70.30 Alcoholic cirrhosis of liver without ascites; E44.0 Moderate protein-calorie malnutrition; S01.01XA Laceration without foreign body of scalp, initial encounter; F10.20 Alcohol dependence, uncomplicated; G40.909 Epilepsy, unspecified, not intractable, without status epilepticus; Z59.0 Homelessness; G89.29 Other chronic pain; E83.42 Hypomagnesemia; Z68.24 Body mass index [BMI] 24.0-24.9, adult; E72.20 Disorder of urea cycle metabolism, unspecified; R26.81 Unsteadiness on feet; Z71.41 Alcohol abuse counseling and surveillance of alcoholic; R29.6 Repeated falls; W19.XXXA Unspecified fall, initial encounter; F41.9 Anxiety disorder, unspecified; K29.70 Gastritis, unspecified, without bleeding; F17.210 Nicotine dependence, cigarettes, uncomplicated; Y90.0 Blood alcohol level of less than 20 mg/100 ml

== ENCOUNTER 2018-03-05 16:36 | Emergency (ER) | payer MEDICAID ==
[2018-03-05 16:36] VITALS: BMI 24.0
--- NOTE | 2018-03-05 19:21 | ED PDOC ---
HPI: General Adult Time Seen by Provider: 03/05/18 17:08 Chief Complaint (Nursing): Weakness/Neurological Deficit History Per: Patient Additional Complaint(s): Pt. states he was dc'd from the hospital today with a walker and is having problems walking with it and reports that both of his legs feel weak. Denies fall, trauma, ETOH use, SOB, chest pain, leg pain. Past Medical History Reviewed: Historical Data, Nursing Documentation, Vital Signs Vital Signs: Last Vital Signs Temp 98.4 F 03/05/18 16:45 Pulse 76 03/05/18 16:45 Resp 16 03/05/18 16:45 BP 136/74 03/05/18 16:45 Pulse Ox 97 03/05/18 20:47 - Medical History PMH: Anemia, Anxiety, Back Problems (herniated disc), Deep Vein Thrombosis, Fractures (rib, left shoulder, left hand 5th digit, humerus), Gastritis, Gall Bladder Disease (Cholelithiasis), Pancreatitis, Seizures, Chronic Pain (left shoulder) Denies: CHF, HIV, Hypercholesterolemia, Chronic Kidney Disease, Sexually Transmitted Disease - Surgical History Surgical History: Endoscopy - Family History Family History: States: No Known Family Hx - Immunization History Hx Tetanus Toxoid Vaccination: Yes Hx Influenza Vaccination: Yes Hx Pneumococcal Vaccination: Yes - Home Medications Home Medications: Ambulatory Orders Medication Instructions Recorded Lactulose [Enulose] 20 gm PO BID #40 udc 03/05/18 Pantoprazole [Protonix EC Tab] 40 mg PO DAILY #30 ect 03/05/18 levETIRAcetam [Keppra] 500 mg PO Q12H #60 tab 03/05/18 - Allergies Allergies/Adverse Reactions: Allergies Allergy/AdvReac Type Severity Reaction Status Date / Time aspirin Allergy NAUSEA Verified 03/02/18 07:56 ibuprofen [From Motrin] Allergy NAUSEA Verified 03/02/18 07:56 naproxen Allergy RASH Verified 03/02/18 07:56 NSAIDS (Non-Steroidal Allergy NAUSEA Verified 03/02/18 07:56 Anti-Inflamma Review of Systems ROS Statement: Except As Marked, All Systems Reviewed And Found Negative Physical Exam - Physical Exam Appears: Positive for: Well, Non-toxic, No Acute Distress Head Exam: Positive for: ATRAUMATIC, NORMAL INSPECTION, NORMOCEPHALIC Skin: Positive for: Normal Color, Warm. Negative for: Rash Eye Exam: Positive for: Normal appearance, EOMI, PERRL Pulses-Dorsalis Pedis (L): 2+ Pulses-Dorsalis Pedis (R): 2+ Gastrointestinal/Abdominal: Positive for: Normal Exam, Soft. Negative for: Tenderness Extremity: Positive for: Normal ROM. Negative for: Calf Tenderness (b/l) Neurologic/Psych: Positive for: Alert, Oriented (x3), Gait (steady, unassisted with walker). Negative for: Aphasia, Facial Droop - Laboratory Results Result Diagrams: 03/05/18 20:30 - ECG O2 Sat by Pulse Oximetry: 97 - Progress ED Course And Treament: FS: 97 ETOH: < 10 Pt. had meal in ED. Pt. still c/o b/l leg weakness but no pain. Case d/w Dr. Chiu who agrees with plan to order labs. HgB from this morning was 7.8. Labs ordered. Disposition - Clinical Impression Clinical Impression: Bilateral leg weakness - Patient ED Disposition Is Patient to be Admitted: Transfer of Care (Signed out to Freddy AYALA pending lab results) - Disposition Disposition Time: 20:00 Condition: STABLE Instructions: Weakness (ED) Forms: [employer] (Turkmen)
--- NOTE | 2018-03-05 20:30 | ED PDOC ---
- Laboratory Results Result Diagrams: 03/05/18 20:30 03/05/18 20:30 - ECG O2 Sat by Pulse Oximetry: 97 (RA) Pulse Ox Interpretation: Normal Medical Decision Making Medical Decision Making: Case endorsed to teletypewriter installer, Freddy AYALA, at 1999 due to shift change. Pertinent details reviewed. Patient pending lab results, re-evaluation, and further disposition. Accucheck: 97 Serum Alcohol: <10 2115 Labs reviewed and unchanged from recent admission. On re-evaluation, patient offers no additional complaints. On exam, patient remains AAOx3, in no acute distress. Lungs clear to auscultation, cardiac RRR, abdomen soft, non-tender, repeat neuro exam shows no focal findings. VSS, stable for discharge. Lab/Diagnostic results d/w the patient in great detail. Diagnosis of weakness/ fatigue d/w the patient. Based on history, exam and diagnostic results, plan will be for outpatient follow up. Patient instructed to follow-up with pmd / referral provided / the clinic in 1- 2 days without fail. Return to the emergency room at any time for any new or worsening symptoms. Patient states he fully agrees with and understands discharge instructions. States that he agrees with the plan and disposition. Verbalized and repeated discharge instructions and plan. I have given the patient opportunity to ask any additional questions. Disposition Counseled Patient/Family Regarding: Studies Performed, Diagnosis, Need For Followup - Clinical Impression Clinical Impression: Bilateral leg weakness, Anemia - POA Present On Arrival: None - Disposition Referrals: [facility] [Outside] Disposition: Routine/Home Disposition Time: 21:26 Condition: FAIR Additional Instructions: The emergency medical care you received today was directed towards the acute presenting symptoms. If you were prescribed any medication, please fill it and give as directed. It may take several days for your symptoms to resolve. Return to the Emergency Department at any time if symptoms worsen, do not improve, or if any other problems arise. Please contact your doctor in 2 days for re-evaluation and follow up / or call one of the physicians/clinics you have been referred to that are listed on the Patient Visit Information form that is included in your discharge packet. Bring any paperwork you were given at discharge with you along with any medications to your follow up visit. Our treatment cannot replace ongoing medical care by a primary care provider (PCP) outside of the emergency department. Instructions: Weakness (ED), Anemia of Chronic Disease Forms: [employer] (Somali) Print Language: BURKINAN Results - Lab Results Lab Results: 03/05/18 03/05/18 03/05/18 20:31 20:30 20:30 WBC RBC Hgb Hct MCV MCH MCHC RDW Plt Count MPV Neut % (Auto) Lymph % (Auto) [place] % (Auto) Eos % (Auto) Baso % (Auto) Neut # (Auto) Lymph # (Auto) [place] # (Auto) Eos # (Auto) Baso # (Auto) PT 17.9 H INR 1.6 APTT 38.0 H Sodium Potassium Chloride Carbon Dioxide Anion Gap BUN Creatinine Est GFR ( Amer) Est GFR (Non-Af Amer) POC Glucose (mg/dL) Random Glucose Calcium Total Bilirubin AST ALT Alkaline Phosphatase Total Protein Albumin Globulin Albumin/Globulin Ratio Urine Opiates Screen Negative Urine Methadone Screen Negative Ur Barbiturates Screen Negative Ur Phencyclidine Scrn Negative Ur Amphetamines Screen Negative U Benzodiazepines Scrn Positive U Oth Cocaine Metabols Negative U Cannabinoids Screen Negative Alcohol, Quantitative Blood Type O POSITIVE Antibody Screen Negative BBK History Checked Patient has bt 03/05/18 03/05/18 03/05/18 20:30 20:30 18:49 WBC 2.1 L RBC 2.79 L Hgb 7.9 L Hct 24.3 L MCV 87.3 MCH 28.3 MCHC 32.4 L RDW 20.7 H Plt Count 50 L MPV 8.4 Neut % (Auto) 53.6 Lymph % (Auto) 26.5 [place] % (Auto) 10.2 H Eos % (Auto) 8.7 H Baso % (Auto) 1.0 Neut # (Auto) 1.1 L Lymph # (Auto) 0.6 L [place] # (Auto) 0.2 Eos # (Auto) 0.2 Baso # (Auto) 0.0 PT INR APTT Sodium 140 Potassium 3.7 Chloride 114 H Carbon Dioxide 20 L Anion Gap 10 BUN 10 Creatinine 0.5 L Est GFR ( Amer) > 60 Est GFR (Non-Af Amer) > 60 POC Glucose (mg/dL) Random Glucose 124 H Calcium 8.2 L Total Bilirubin 1.3 AST 61 H ALT 38 Alkaline Phosphatase 160 H D Total Protein 6.4 Albumin 2.6 L Globulin 3.8 Albumin/Globulin Ratio 0.7 L Urine Opiates Screen Urine Methadone Screen Ur Barbiturates Screen Ur Phencyclidine Scrn Ur Amphetamines Screen U Benzodiazepines Scrn U Oth Cocaine Metabols U Cannabinoids Screen Alcohol, Quantitative < 10 Blood Type Antibody Screen BBK History Checked 03/05/18 18:43 WBC RBC Hgb Hct MCV MCH MCHC RDW Plt Count MPV Neut % (Auto) Lymph % (Auto) [place] % (Auto) Eos % (Auto) Baso % (Auto) Neut # (Auto) Lymph # (Auto) [place] # (Auto) Eos # (Auto) Baso # (Auto) PT INR APTT Sodium Potassium Chloride Carbon Dioxide Anion Gap BUN Creatinine Est GFR ( Amer) Est GFR (Non-Af Amer) POC Glucose (mg/dL) 97 Random Glucose Calcium Total Bilirubin AST ALT Alkaline Phosphatase Total Protein Albumin Globulin Albumin/Globulin Ratio Urine Opiates Screen Urine Methadone Screen Ur Barbiturates Screen Ur Phencyclidine Scrn Ur Amphetamines Screen U Benzodiazepines Scrn U Oth Cocaine Metabols U Cannabinoids Screen Alcohol, Quantitative Blood Type Antibody Screen BBK History Checked
[2018-03-05 20:42] LABS: EOS # 0.2 K/uL (0.0-0.7); EOS % 8.7 % (0.0-4.0); HEMOGLOBIN 7.9 g/dL (12.0-18.0); LYMPH # 0.6 K/uL (1.0-4.3); LYMPH % 26.5 % (20.0-40.0); MEAN CELL VOLUME 87.3 fl (80.0-94.0); MEAN CORPUSCULAR HEMOGLOBIN 28.3 pg (27.0-31.0); MEAN CORPUSCULAR HGB CONC 32.4 g/dL (33.0-37.0); MEAN PLATELET VOLUME 8.4 fl (7.2-11.7); MONO # 0.2 K/uL (0.0-0.8); MONO % 10.2 % (0.0-10.0); NEUT # 1.1 K/uL (1.8-7.0); NEUT % 53.6 % (50.0-75.0); RBC 2.79 Mil/uL (4.40-5.90); RED CELL DISTRIBUTION WIDTH 20.7 % (11.5-14.5); WHITE BLOOD COUNT 2.1 K/uL (4.8-10.8)
[2018-03-05 20:46] LABS: INR 1.6; PROTHROMBIN TIME 17.9 Seconds (9.8-13.1)
[2018-03-05 21:00] LABS: ALB/GLOB RATIO 0.7 (1.0-2.1); ALBUMIN 2.6 g/dL (3.5-5.0); ALT/SGPT 38 U/L (21-72); AST/SGOT 61 U/L (17-59); BLOOD UREA NITROGEN 10 mg/dl (9-20); CALCIUM 8.2 mg/dL (8.4-10.2); GFR NON-AFRICAN AMERICAN > 60
[2018-03-05 21:06] LABS: BARBITURATES, UR NEGATIVE (NEGATIVE); BENZODIAZEPINES, UR POSITIVE (NEGATIVE); OPIATES, UR NEGATIVE (NEGATIVE); PHENCYCLIDINE, UR NEGATIVE (NEGATIVE)
[2018-03-05 23:01] VITALS: BP 128/89; PULSE 81; RESP 18; TEMP 98; O2SAT 98
== END 2018-03-05 22:15 | disposition home or self-care (01) ==
LOC: H.ER 16:36
DX: R53.1 Weakness (principal); G89.29 Other chronic pain; Z86.718 Personal history of other venous thrombosis and embolism; D64.9 Anemia, unspecified; Z88.6 Allergy status to analgesic agent

== ENCOUNTER 2018-03-05 23:23 | Emergency (ER) | payer MEDICAID ==
[2018-03-05 23:23] VITALS: BMI 24.0
[2018-03-06 02:36] VITALS: BP 137/70; PULSE 91; RESP 18; TEMP 98; O2SAT 98
--- NOTE | 2018-03-06 05:13 | ED PDOC ---
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 Patient offers no other medical complaints at this time. Denies LOC and vomiting. PMD: none provided Past Medical History Reviewed: Historical Data, Nursing Documentation, Vital Signs Vital Signs: Last Vital Signs Temp 98.0 F 03/06/18 01:04 Pulse 91 H 03/06/18 01:04 Resp 18 03/06/18 01:04 BP 137/70 03/06/18 01:04 Pulse Ox 98 03/06/18 05:14 - Medical History PMH: Anemia, Anxiety, Back Problems (herniated disc), Deep Vein Thrombosis, Fractures (rib, left shoulder, left hand 5th digit, humerus), Gastritis, Gall Bladder Disease (Cholelithiasis), Pancreatitis, Seizures, Chronic Pain (left shoulder) Denies: CHF, HIV, Hypercholesterolemia, Chronic Kidney Disease, Sexually Transmitted Disease - Surgical History Surgical History: Endoscopy - Family History Family History: States: Unknown Family Hx - Immunization History Hx Tetanus Toxoid Vaccination: Yes Hx Influenza Vaccination: Yes Hx Pneumococcal Vaccination: Yes - Home Medications Home Medications: Ambulatory Orders Medication Instructions Recorded Lactulose [Enulose] 20 gm PO BID #40 udc 03/05/18 Pantoprazole [Protonix EC Tab] 40 mg PO DAILY #30 ect 03/05/18 levETIRAcetam [Keppra] 500 mg PO Q12H #60 tab 03/05/18 - Allergies Allergies/Adverse Reactions: Allergies Allergy/AdvReac Type Severity Reaction Status Date / Time aspirin Allergy NAUSEA Verified 03/02/18 07:56 ibuprofen [From Motrin] Allergy NAUSEA Verified 03/02/18 07:56 naproxen Allergy RASH Verified 03/02/18 07:56 NSAIDS (Non-Steroidal Allergy NAUSEA Verified 03/02/18 07:56 Anti-Inflamma Review of Systems ROS Statement: Except As Marked, All Systems Reviewed And Found Negative Constitutional: Negative for: Other (LOC) Gastrointestinal: Negative for: Vomiting Neurological: Positive for: Headache Physical Exam - Reviewed Nursing Documentation Reviewed: Yes Vital Signs Reviewed: Yes - Physical Exam Appears: Positive for: Non-toxic, No Acute Distress Head Exam: Positive for: ATRAUMATIC, NORMAL INSPECTION, NORMOCEPHALIC Skin: Positive for: Normal Color, Warm, Dry Eye Exam: Positive for: EOMI, Normal appearance, PERRL Neck: Positive for: Normal, Painless ROM, Supple Cardiovascular/Chest: Positive for: Regular Rate, Rhythm. Negative for: Murmur Respiratory: Positive for: Normal Breath Sounds. Negative for: Respiratory Distress Gastrointestinal/Abdominal: Positive for: Normal Exam, Soft. Negative for: Tenderness Extremity: Positive for: Normal ROM. Negative for: Deformity Neurologic/Psych: Positive for: Alert, Oriented (x 3). Negative for: Motor/ Sensory Deficits - ECG O2 Sat by Pulse Oximetry: 98 (RA) Pulse Ox Interpretation: Normal Medical Decision Making Medical Decision Making: Patient slept in ER nearly all night without incident Ambulatory, well appearing upon discharge No focal deficit Stable vitals Disposition - Clinical Impression Clinical Impression: Headache - Disposition Referrals: Alcoholics Anonymous [Outside] Disposition: Routine/Home Disposition Time: 05:00 Condition: GOOD Instructions: Closed Head Injury Forms: [facility] [employer] (Tanzanian)
== END 2018-03-06 05:59 | disposition home or self-care (01) ==
LOC: H.ER 23:23
DX: R51 Headache (principal); G89.29 Other chronic pain; Z86.718 Personal history of other venous thrombosis and embolism; Z88.6 Allergy status to analgesic agent

== ENCOUNTER 2018-03-06 13:54 | Emergency (ER) | payer MEDICAID ==
[2018-03-06 13:55] VITALS: BMI 24.0
--- NOTE | 2018-03-06 14:07 | ED PDOC ---
HPI: Seizure Time Seen by Provider: 03/06/18 13:58 Chief Complaint (Nursing): Seizure Chief Complaint (Provider): seizure History Per: Patient Additional Complaint(s): Pt. states he was dc'd from the hospital today with a walker and is having problems walking with it and reports that both of his legs feel weak. Denies fall, trauma, ETOH use, SOB, chest pain, leg pain. Past Medical History Reviewed: Nursing Documentation, Vital Signs Vital Signs: Last Vital Signs Temp 98.2 F 03/06/18 20:00 Pulse 60 03/06/18 20:00 Resp 20 03/06/18 20:00 BP 117/77 03/06/18 20:00 Pulse Ox 100 03/06/18 20:00 - Medical History PMH: Anemia, Anxiety, Back Problems (herniated disc), Deep Vein Thrombosis, Fractures (rib, left shoulder, left hand 5th digit, humerus), Gastritis, Gall Bladder Disease (Cholelithiasis), Pancreatitis, Seizures, Chronic Pain (left shoulder) Denies: CHF, HIV, Hypercholesterolemia, Chronic Kidney Disease, Sexually Transmitted Disease - Surgical History Surgical History: Endoscopy - Family History Family History: States: Unknown Family Hx - Living Arrangements Living Arrangements: Other - Immunization History Hx Tetanus Toxoid Vaccination: Yes Hx Influenza Vaccination: Yes Hx Pneumococcal Vaccination: Yes - Home Medications Home Medications: Ambulatory Orders Medication Instructions Recorded Lactulose [Enulose] 20 gm PO BID #40 udc 03/05/18 Pantoprazole [Protonix EC Tab] 40 mg PO DAILY #30 ect 03/05/18 levETIRAcetam [Keppra] 500 mg PO Q12H #60 tab 03/05/18 - Allergies Allergies/Adverse Reactions: Allergies Allergy/AdvReac Type Severity Reaction Status Date / Time aspirin Allergy NAUSEA Verified 03/08/18 12:40 ibuprofen [From Motrin] Allergy NAUSEA Verified 03/08/18 12:40 naproxen Allergy RASH Verified 03/08/18 12:40 NSAIDS (Non-Steroidal Allergy NAUSEA Verified 03/08/18 12:40 Anti-Inflamma Review of Systems ROS Statement: Except As Marked, All Systems Reviewed And Found Negative Physical Exam - Reviewed Nursing Documentation Reviewed: Yes Vital Signs Reviewed: Yes - Physical Exam Appears: Positive for: Well, Non-toxic, No Acute Distress Head Exam: Positive for: ATRAUMATIC, NORMAL INSPECTION, NORMOCEPHALIC Skin: Positive for: Normal Color, Warm, DRY Eye Exam: Positive for: EOMI, Normal appearance, PERRL ENT: Positive for: Normal ENT Inspection Neck: Positive for: Normal, Painless ROM Cardiovascular/Chest: Positive for: Regular Rate, Rhythm Respiratory: Positive for: CNT, Normal Breath Sounds Gastrointestinal/Abdominal: Positive for: Normal Exam, Soft Back: Positive for: Normal Inspection Extremity: Positive for: Normal ROM Neurologic/Psych: Positive for: Alert, Oriented - ECG O2 Sat by Pulse Oximetry: 100 Disposition - Clinical Impression Clinical Impression: Atypical seizure - Patient ED Disposition Is Patient to be Admitted: No - Disposition Disposition: Routine/Home Disposition Time: 17:00 Condition: STABLE Instructions: Seizures Forms: [facility] (Portuguese)
[2018-03-06 20:16] VITALS: BP 117/77; PULSE 60; RESP 20; TEMP 98.2; O2SAT 100
== END 2018-03-06 20:02 | disposition home or self-care (01) ==
LOC: H.ER 13:54
DX: R56.9 Unspecified convulsions (principal)

== ENCOUNTER 2018-03-06 21:12 | Emergency (ER) | payer MEDICAID ==
[2018-03-06 21:12] VITALS: BMI 24.0
--- NOTE | 2018-03-06 21:22 | ED PDOC ---
HPI: General Adult Time Seen by Provider: 03/06/18 21:19 Chief Complaint (Provider): seizure History Per: Patient, EMS Additional Complaint(s): 52 year old male presents to ED stating he had seizure prior to arrival. He states he also has pain to right shoulder and would like something stronger that tylenol for the pain. Past Medical History Reviewed: Historical Data, Nursing Documentation, Vital Signs Vital Signs: Last Vital Signs Temp 98 F 03/06/18 21:17 Pulse 104 H 03/06/18 21:17 Resp 18 03/06/18 21:17 BP 119/74 03/06/18 21:17 Pulse Ox 99 03/06/18 21:17 - Medical History PMH: Anemia, Anxiety, Back Problems (herniated disc), Deep Vein Thrombosis, Fractures (rib, left shoulder, left hand 5th digit, humerus), Gastritis, Gall Bladder Disease (Cholelithiasis), Pancreatitis, Seizures, Chronic Pain (left shoulder) - Surgical History Surgical History: Endoscopy - Family History Family History: States: No Known Family Hx - Living Arrangements Living Arrangements: With Family - Social History Current smoker - smoking cessation education provided: Yes Alcohol: > 2 Drinks/Day Drugs: Denies - Home Medications Home Medications: Ambulatory Orders Medication Instructions Recorded Lactulose [Enulose] 20 gm PO BID #40 udc 03/05/18 Pantoprazole [Protonix EC Tab] 40 mg PO DAILY #30 ect 03/05/18 levETIRAcetam [Keppra] 500 mg PO Q12H #60 tab 03/05/18 - Allergies Allergies/Adverse Reactions: Allergies Allergy/AdvReac Type Severity Reaction Status Date / Time aspirin Allergy NAUSEA Verified 03/06/18 21:17 ibuprofen [From Motrin] Allergy NAUSEA Verified 03/06/18 21:17 naproxen Allergy RASH Verified 03/06/18 21:17 NSAIDS (Non-Steroidal Allergy NAUSEA Verified 03/06/18 21:17 Anti-Inflamma Review of Systems ROS Statement: Except As Marked, All Systems Reviewed And Found Negative Musculoskeletal: Positive for: Shoulder Pain Neurological: Positive for: Seizures Physical Exam - Reviewed Nursing Documentation Reviewed: Yes Vital Signs Reviewed: Yes - Physical Exam Appears: Positive for: Well, Non-toxic, No Acute Distress Skin: Positive for: Normal Color. Negative for: Rash Eye Exam: Positive for: Normal appearance Cardiovascular/Chest: Positive for: Regular Rate, Rhythm Respiratory: Positive for: Normal Breath Sounds Extremity: Positive for: Normal ROM Neurologic/Psych: Positive for: Alert, Oriented, Gait (steady with walker) - ECG O2 Sat by Pulse Oximetry: 99 Pulse Ox Interpretation: Normal Medical Decision Making Medical Decision Makin52 year old male with seizures and right shoulder pain Plan: PO keppra PO tylenol Patient left ED before treatment complete Disposition - Clinical Impression Clinical Impression: Seizure disorder - Patient ED Disposition Is Patient to be Admitted: No - Disposition Disposition: Left W/O Treatment Disposition Time: 21:43 Condition: UNKNOWN
[2018-03-06 21:23] VITALS: BP 119/74; PULSE 104; RESP 18; TEMP 98; O2SAT 99
== END 2018-03-06 22:00 | disposition left against medical advice (07) ==
LOC: H.ER 21:12
DX: G40.909 Epilepsy, unspecified, not intractable, without status epilepticus (principal)

== ENCOUNTER 2018-03-07 08:30 | Emergency (ER) | payer MEDICAID ==
[2018-03-07 08:30] VITALS: BMI 24.0
--- NOTE | 2018-03-07 10:37 | ED PDOC ---
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 Patient is well known to provider and ED for multiple visits and bed seeking behavior. He denies any other medical complaints. PMD: none provided. Past Medical History Reviewed: Historical Data, Nursing Documentation, Vital Signs Vital Signs: Last Vital Signs Temp 98.9 F 03/07/18 09:04 Pulse 93 H 03/07/18 09:04 Resp 17 03/07/18 09:04 BP 134/74 03/07/18 09:04 Pulse Ox 98 03/07/18 09:04 - Medical History PMH: Anemia, Anxiety, Back Problems (herniated disc), Deep Vein Thrombosis, Fractures (rib, left shoulder, left hand 5th digit, humerus), Gastritis, Gall Bladder Disease (Cholelithiasis), Pancreatitis, Seizures, Chronic Pain (left shoulder) Denies: CHF, HIV, Hypercholesterolemia, Chronic Kidney Disease, Sexually Transmitted Disease - Surgical History Surgical History: Endoscopy - Family History Family History: States: Unknown Family Hx - Immunization History Hx Tetanus Toxoid Vaccination: Yes Hx Influenza Vaccination: Yes Hx Pneumococcal Vaccination: Yes - Home Medications Home Medications: Ambulatory Orders Medication Instructions Recorded Lactulose [Enulose] 20 gm PO BID #40 udc 03/05/18 Pantoprazole [Protonix EC Tab] 40 mg PO DAILY #30 ect 03/05/18 levETIRAcetam [Keppra] 500 mg PO Q12H #60 tab 03/05/18 - Allergies Allergies/Adverse Reactions: Allergies Allergy/AdvReac Type Severity Reaction Status Date / Time aspirin Allergy NAUSEA Verified 03/07/18 10:09 ibuprofen [From Motrin] Allergy NAUSEA Verified 03/07/18 10:09 naproxen Allergy RASH Verified 03/07/18 10:09 NSAIDS (Non-Steroidal Allergy NAUSEA Verified 03/07/18 10:09 Anti-Inflamma Review of Systems ROS Statement: Except As Marked, All Systems Reviewed And Found Negative Gastrointestinal: Positive for: Hematemesis Physical Exam - Reviewed Nursing Documentation Reviewed: Yes Vital Signs Reviewed: Yes - Physical Exam Appears: Positive for: No Acute Distress Head Exam: Positive for: ATRAUMATIC, NORMOCEPHALIC Skin: Positive for: Normal Color, Warm, Dry Eye Exam: Positive for: Normal appearance, EOMI, PERRL Neck: Positive for: Painless ROM Cardiovascular/Chest: Positive for: Regular Rate, Rhythm. Negative for: Murmur Respiratory: Positive for: Normal Breath Sounds. Negative for: Respiratory Distress Gastrointestinal/Abdominal: Positive for: Normal Exam, Soft. Negative for: Tenderness, Guarding, Rebound Back: Positive for: Normal Inspection Extremity: Positive for: Normal ROM (upper and lower extremities). Negative for : Deformity, Swelling Neurologic/Psych: Positive for: Alert, Oriented - Laboratory Results Result Diagrams: 03/07/18 10:55 03/07/18 10:55 Medical Decision Making Medical Decision Making: Time: 09:20 Initial Impression: Hematemesis, malingering Initial Plan: --Type and screen --CMP --CBC w/ differential --Protonix Inj 40 mg IVP --Reevaluation 13:20 -Hemoglobin is 8.2, better than in the past. Patient has not vomited while in the ED. 13:55 -Patient is requesting food. 15:00 -Patient is eating food and asking for a second tray. Pt. hasn't vomited and is medically stable for discharge. ----- Scribe Attestation: Documented by Giovany Puri, acting as a scribe for Amanda Washington MD. Provider Scribe Attestation: All medical record entries made by the Scribe were at my direction and personally dictated by me. I have reviewed the chart and agree that the record accurately reflects my personal performance of the history, physical exam, medical decision making, and the department course for this patient. I have also personally directed, reviewed, and agree with the discharge instructions and disposition. Disposition - Clinical Impression Clinical Impression: Esophageal varices - Disposition Disposition: Routine/Home Disposition Time: 15:05 Condition: STABLE Additional Instructions: follow up with your primary doctor for further evaluation 1-2 days return to the ED with any worsening or concerning symptoms Instructions: Esophageal Varices (DC) Forms: [employer] (Nicaraguan)
[2018-03-07 11:28] LABS: EOS # 0.2 K/uL (0.0-0.7); EOS % 5.4 % (0.0-4.0); HEMOGLOBIN 8.2 g/dL (12.0-18.0); LYMPH # 0.7 K/uL (1.0-4.3); LYMPH % 22.1 % (20.0-40.0); MEAN CELL VOLUME 86.7 fl (80.0-94.0); MEAN CORPUSCULAR HEMOGLOBIN 28.3 pg (27.0-31.0); MEAN CORPUSCULAR HGB CONC 32.6 g/dL (33.0-37.0); MONO # 0.4 K/uL (0.0-0.8); MONO % 13.6 % (0.0-10.0); NEUT # 1.8 K/uL (1.8-7.0); NEUT % 57.9 % (50.0-75.0); NRBC % 0.1 % (0.0-0.0); RBC 2.9 Mil/uL (4.40-5.90); WHITE BLOOD COUNT 3.2 K/uL (4.8-10.8)
[2018-03-07 11:36] LABS: ALB/GLOB RATIO 0.7 (1.0-2.1); ALT/SGPT 45 U/L (21-72); AST/SGOT 76 U/L (17-59); BLOOD UREA NITROGEN 15 mg/dl (9-20); CALCIUM 8.2 mg/dL (8.4-10.2); GFR NON-AFRICAN AMERICAN > 60
[2018-03-07 12:07] VITALS: BP 134/74; PULSE 93; RESP 17; TEMP 98.9; O2SAT 98
== END 2018-03-07 15:26 | disposition home or self-care (01) ==
LOC: H.ER 08:30
DX: I85.00 Esophageal varices without bleeding (principal); Z86.718 Personal history of other venous thrombosis and embolism; G89.29 Other chronic pain; G40.909 Epilepsy, unspecified, not intractable, without status epilepticus; Z88.6 Allergy status to analgesic agent
CPT/HCPCS: 80053; 85025; 86850; 86900; 96374; 99284; C9113

== ENCOUNTER 2018-03-07 18:37 | Emergency (ER) | payer MEDICAID ==
[2018-03-07 18:37] VITALS: BMI 24.0
--- NOTE | 2018-03-07 20:49 | ED PDOC ---
HPI: Abdomen Time Seen by Provider: 03/07/18 19:14 Chief Complaint (Nursing): GI Problem Chief Complaint (Provider): GI Problem History Per: Patient History/Exam Limitations: no limitations Onset/Duration Of Symptoms: Hrs Current Symptoms Are (Timing): Still Present Additional Complaint(s): 52 y/o male with a PMHx of seizures presents to the ED for evaluation of vomiting blood. Patient was seen and evaluated here earlier today for the same symptoms. Patient is well known to provider and ER staff for frequent visits and bed malingering. PMD: None Provided Past Medical History Reviewed: Historical Data, Nursing Documentation, Vital Signs Vital Signs: Last Vital Signs Temp 98.3 F 03/08/18 05:42 Pulse 82 03/08/18 05:42 Resp 18 03/08/18 05:42 BP 104/53 L 03/08/18 05:42 Pulse Ox 96 03/08/18 05:42 - Medical History PMH: Anemia, Anxiety, Back Problems (herniated disc), Deep Vein Thrombosis, Fractures (rib, left shoulder, left hand 5th digit, humerus), Gastritis, Gall Bladder Disease (Cholelithiasis), Pancreatitis, Seizures, Chronic Pain (left shoulder) Denies: CHF, HIV, Hypercholesterolemia, Chronic Kidney Disease, Sexually Transmitted Disease - Surgical History Surgical History: Endoscopy - Family History Family History: States: Unknown Family Hx - Social History Alcohol: > 2 Drinks/Day - Immunization History Hx Tetanus Toxoid Vaccination: Yes Hx Influenza Vaccination: Yes Hx Pneumococcal Vaccination: Yes - Home Medications Home Medications: Ambulatory Orders Medication Instructions Recorded Lactulose [Enulose] 20 gm PO BID #40 udc 03/05/18 Pantoprazole [Protonix EC Tab] 40 mg PO DAILY #30 ect 03/05/18 levETIRAcetam [Keppra] 500 mg PO Q12H #60 tab 03/05/18 - Allergies Allergies/Adverse Reactions: Allergies Allergy/AdvReac Type Severity Reaction Status Date / Time aspirin Allergy NAUSEA Verified 03/07/18 10:09 ibuprofen [From Motrin] Allergy NAUSEA Verified 03/07/18 10:09 naproxen Allergy RASH Verified 03/07/18 10:09 NSAIDS (Non-Steroidal Allergy NAUSEA Verified 03/07/18 10:09 Anti-Inflamma Review of Systems ROS Statement: Except As Marked, All Systems Reviewed And Found Negative Gastrointestinal: Positive for: Vomiting Physical Exam - Reviewed Nursing Documentation Reviewed: Yes Vital Signs Reviewed: Yes - Physical Exam Appears: Positive for: No Acute Distress Head Exam: Positive for: ATRAUMATIC, NORMOCEPHALIC Skin: Positive for: Normal Color, Warm, Dry Eye Exam: Positive for: Normal appearance, EOMI, PERRL Neck: Positive for: Normal, Painless ROM Cardiovascular/Chest: Positive for: Regular Rate, Rhythm. Negative for: Murmur Respiratory: Positive for: Normal Breath Sounds. Negative for: Respiratory Distress Gastrointestinal/Abdominal: Positive for: Normal Exam, Soft. Negative for: Tenderness Back: Positive for: Normal Inspection. Negative for: L CVA Tenderness, R CVA Tenderness, Vertebral Tenderness Extremity: Positive for: Normal ROM. Negative for: Pedal Edema, Deformity Neurologic/Psych: Positive for: Alert, Oriented. Negative for: Motor/Sensory Deficits - Laboratory Results Result Diagrams: 03/07/18 20:56 03/07/18 20:56 - ECG O2 Sat by Pulse Oximetry: 98 (RA) Pulse Ox Interpretation: Normal Medical Decision Making Medical Decision Making: Time: 2019 Plan: -- EKG -- Alcohol Serum -- CMP -- Urine Drug Screen -- Magnesium -- ED Urine Dipstick -- CBC with differentials -- PTT -- Prothrombin Time -- Heplock Insertion -- Accucheck -- Urinalysis 0546 Patient is medically stable for discharge, and requires no further treatment in the ED at this time. Scribe Attestation: Documented by Tutu Butler acting as a scribe for Olaf Fernandez MD. Provider Scribe Attestation: All medical record entries made by the Scribe were at my direction and personally dictated by me. I have reviewed the chart and agree that the record accurately reflects my personal performance of the history, physical exam, medical decision making, and the department course for this patient. I have also personally directed, reviewed, and agree with the discharge instructions and disposition. Disposition - Clinical Impression Clinical Impression: Alcoholism - Patient ED Disposition Is Patient to be Admitted: No - Disposition Disposition: Routine/Home Disposition Time: 05:46 Condition: STABLE Instructions: Alcohol Abuse and Alcoholism (DC) Forms: [employer] (Bengali)
[2018-03-07 21:03] LABS: BASO % 0.9 % (0.0-2.0); EOS # 0.3 K/uL (0.0-0.7); EOS % 7.8 % (0.0-4.0); HEMOGLOBIN 8.7 g/dL (12.0-18.0); LYMPH % 27.5 % (20.0-40.0); MEAN CELL VOLUME 86.8 fl (80.0-94.0); MEAN CORPUSCULAR HEMOGLOBIN 28.4 pg (27.0-31.0); MEAN CORPUSCULAR HGB CONC 32.7 g/dL (33.0-37.0); MEAN PLATELET VOLUME 7.1 fl (7.2-11.7); MONO # 0.5 K/uL (0.0-0.8); MONO % 12.6 % (0.0-10.0); NEUT # 1.9 K/uL (1.8-7.0); NEUT % 51.2 % (50.0-75.0); NRBC % 0.1 % (0.0-0.0); RBC 3.06 Mil/uL (4.40-5.90); RED CELL DISTRIBUTION WIDTH 20.1 % (11.5-14.5); WHITE BLOOD COUNT 3.8 K/uL (4.8-10.8)
[2018-03-07 21:17] LABS: INR 1.6; PROTHROMBIN TIME 17.4 Seconds (9.8-13.1)
[2018-03-07 21:26] LABS: ALB/GLOB RATIO 0.7 (1.0-2.1); ALT/SGPT 41 U/L (21-72); AST/SGOT 71 U/L (17-59); BLOOD UREA NITROGEN 11 mg/dl (9-20); CALCIUM 8.3 mg/dL (8.4-10.2); GFR NON-AFRICAN AMERICAN > 60
[2018-03-07 21:32] LABS: BARBITURATES, UR NEGATIVE (NEGATIVE); BENZODIAZEPINES, UR POSITIVE (NEGATIVE); OPIATES, UR NEGATIVE (NEGATIVE); PHENCYCLIDINE, UR NEGATIVE (NEGATIVE)
[2018-03-07 21:33] LABS: URINE BACTERIA RARE (<OCC); URINE BILIRUBIN NEGATIVE (NEGATIVE); URINE BLOOD NEGATIVE (NEGATIVE); URINE CLARITY CLEAR (Clear); URINE COLOR STRAW (YELLOW); URINE GLUCOSE (UA) NEG (Normal); URINE LEUKOCYTE ESTERASE NEG Leu/uL (Negative); URINE PROTEIN NEGATIVE (NEGATIVE); URINE UROBILINOGEN 0.2-1.0 mg/dL (0.2-1.0)
[2018-03-08 05:43] VITALS: BP 104/53; PULSE 82; RESP 18; TEMP 98.3
[2018-03-08 05:47] VITALS: O2SAT 98
--- NOTE | 2018-03-08 09:08 | CARD ---
APPROVED REPORT Date of service: 03/07/2018 <Conclusion> Normal sinus rhythm Normal ECG
== END 2018-03-08 05:50 | disposition home or self-care (01) ==
LOC: H.ER 18:37
DX: F10.20 Alcohol dependence, uncomplicated (principal); G89.29 Other chronic pain; Z86.718 Personal history of other venous thrombosis and embolism; Z88.6 Allergy status to analgesic agent

== ENCOUNTER 2018-03-08 12:19 | Emergency (ER) | payer MEDICAID ==
[2018-03-08 12:20] VITALS: BMI 24.0
--- NOTE | 2018-03-08 13:43 | ED PDOC ---
HPI: Abdomen Time Seen by Provider: 03/08/18 12:32 Chief Complaint (Nursing): GI Problem Chief Complaint (Provider): Seizure History Per: Patient Additional Complaint(s): ED for evaluation of vomiting. Patient states he needs his dose of Keppra. Past Medical History Reviewed: Nursing Documentation, Vital Signs Vital Signs: Last Vital Signs Temp 98.4 F 03/08/18 17:08 Pulse 88 03/08/18 17:08 Resp 14 03/08/18 17:08 BP 118/74 03/08/18 17:08 Pulse Ox 99 03/08/18 17:08 - Medical History PMH: Anemia, Anxiety, Back Problems (herniated disc), Deep Vein Thrombosis, Fractures (rib, left shoulder, left hand 5th digit, humerus), Gastritis, Gall Bladder Disease (Cholelithiasis), Pancreatitis, Seizures, Chronic Pain (left shoulder) Denies: CHF, HIV, Hypercholesterolemia, Chronic Kidney Disease, Sexually Transmitted Disease - Surgical History Surgical History: Endoscopy - Family History Family History: States: Unknown Family Hx - Living Arrangements Living Arrangements: With Family - Social History Current smoker - smoking cessation education provided: Yes Alcohol: Social Drugs: Cannabis - Immunization History Hx Tetanus Toxoid Vaccination: Yes Hx Influenza Vaccination: Yes Hx Pneumococcal Vaccination: Yes - Home Medications Home Medications: Ambulatory Orders Medication Instructions Recorded Lactulose [Enulose] 20 gm PO BID #40 udc 03/05/18 Pantoprazole [Protonix EC Tab] 40 mg PO DAILY #30 ect 03/05/18 levETIRAcetam [Keppra] 500 mg PO Q12H #60 tab 03/05/18 - Allergies Allergies/Adverse Reactions: Allergies Allergy/AdvReac Type Severity Reaction Status Date / Time aspirin Allergy NAUSEA Verified 03/08/18 12:40 ibuprofen [From Motrin] Allergy NAUSEA Verified 03/08/18 12:40 naproxen Allergy RASH Verified 03/08/18 12:40 NSAIDS (Non-Steroidal Allergy NAUSEA Verified 03/08/18 12:40 Anti-Inflamma Review of Systems ROS Statement: Except As Marked, All Systems Reviewed And Found Negative Physical Exam - Reviewed Nursing Documentation Reviewed: Yes Vital Signs Reviewed: Yes - Physical Exam Appears: Positive for: Well, Non-toxic, No Acute Distress Head Exam: Positive for: ATRAUMATIC, NORMAL INSPECTION, NORMOCEPHALIC Skin: Positive for: Normal Color, Warm, DRY Eye Exam: Positive for: EOMI, Normal appearance, PERRL ENT: Positive for: Normal ENT Inspection Neck: Positive for: Normal, Painless ROM Cardiovascular/Chest: Positive for: Regular Rate, Rhythm Respiratory: Positive for: CNT, Normal Breath Sounds Gastrointestinal/Abdominal: Positive for: Normal Exam, Soft Back: Positive for: Normal Inspection Extremity: Positive for: Normal ROM Neurologic/Psych: Positive for: Alert, Oriented - ECG O2 Sat by Pulse Oximetry: 97 Disposition - Clinical Impression Clinical Impression: Frequent seizures - Patient ED Disposition Is Patient to be Admitted: No - Disposition Disposition: Routine/Home Disposition Time: 17:14 Condition: STABLE Instructions: Seizures, Adult (DC) Forms: [employer] (Greek)
[2018-03-08 17:09] VITALS: BP 118/74; PULSE 88; RESP 14; TEMP 98.4
[2018-03-08 17:14] VITALS: O2SAT 97
== END 2018-03-08 17:14 | disposition home or self-care (01) ==
LOC: H.ER 12:19
DX: R56.9 Unspecified convulsions (principal)

== ENCOUNTER 2018-03-09 05:04 | Emergency (ER) | payer MEDICAID ==
[2018-03-09 05:04] VITALS: BMI 24.0
[2018-03-09 05:16] VITALS: BP 130/86; PULSE 89; RESP 17; TEMP 98.6; O2SAT 99
--- NOTE | 2018-03-09 05:21 | ED PDOC ---
HPI: Abdomen Chief Complaint (Nursing): GI Problem Chief Complaint (Provider): vomiting blood History Per: Patient History/Exam Limitations: no limitations Onset/Duration Of Symptoms: Hrs (1) Additional Complaint(s): 52 y/o male self-presents for evaluation of one episode of vomiting bright red blood and one episode of bright red rectal bleeding one hour prior to arrival. Denies fever, headache, dizziness, chest pain, shortness of breath, palpitations , abdominal pain. Patient requesting ice water upon arrival. 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 Past Medical History Reviewed: Historical Data, Nursing Documentation, Vital Signs Vital Signs: Last Vital Signs Temp 98.6 F 03/09/18 05:13 Pulse 89 03/09/18 05:13 Resp 17 03/09/18 05:13 BP 130/86 03/09/18 05:13 Pulse Ox 99 03/09/18 06:11 - Medical History PMH: Anemia, Anxiety, Back Problems (herniated disc), Deep Vein Thrombosis, Fractures (rib, left shoulder, left hand 5th digit, humerus), Gastritis, Gall Bladder Disease (Cholelithiasis), Pancreatitis, Seizures, Chronic Pain (left shoulder) Denies: CHF, HIV, Hypercholesterolemia, Chronic Kidney Disease, Sexually Transmitted Disease - Surgical History Surgical History: Endoscopy - Family History Family History: States: Unknown Family Hx - Immunization History Hx Tetanus Toxoid Vaccination: Yes Hx Influenza Vaccination: Yes Hx Pneumococcal Vaccination: Yes - Home Medications Home Medications: Ambulatory Orders Medication Instructions Recorded Lactulose [Enulose] 20 gm PO BID #40 udc 03/05/18 Pantoprazole [Protonix EC Tab] 40 mg PO DAILY #30 ect 03/05/18 levETIRAcetam [Keppra] 500 mg PO Q12H #60 tab 03/05/18 - Allergies Allergies/Adverse Reactions: Allergies Allergy/AdvReac Type Severity Reaction Status Date / Time aspirin Allergy NAUSEA Verified 03/09/18 13:31 ibuprofen [From Motrin] Allergy NAUSEA Verified 03/09/18 13:31 naproxen Allergy RASH Verified 03/09/18 13:31 NSAIDS (Non-Steroidal Allergy NAUSEA Verified 03/09/18 13:31 Anti-Inflamma Review of Systems ROS Statement: Except As Marked, All Systems Reviewed And Found Negative Gastrointestinal: Positive for: Vomiting, Hematochezia Physical Exam - Reviewed Nursing Documentation Reviewed: Yes Vital Signs Reviewed: Yes - Physical Exam Appears: Positive for: Well, Non-toxic, No Acute Distress Head Exam: Positive for: ATRAUMATIC, NORMAL INSPECTION, NORMOCEPHALIC Skin: Positive for: Normal Color Eye Exam: Positive for: Normal appearance ENT: Positive for: Normal ENT Inspection Cardiovascular/Chest: Positive for: Regular Rate, Rhythm Respiratory: Positive for: Normal Breath Sounds Gastrointestinal/Abdominal: Positive for: Normal Exam, Bowel Sounds, Soft. 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 Negative for: Black Stool, Blood Streaked Stool Extremity: Positive for: Normal ROM Neurologic/Psych: Positive for: Alert, Oriented (x3) - Laboratory Results Result Diagrams: 03/09/18 05:29 - ECG O2 Sat by Pulse Oximetry: 99 - Progress ED Course And Treament: Patient had full workup for same, twice, 03/07/18 Will check CBC and PO challenge HH similar to previous visits Patient tolerated PO Patient requires no further intervention in the ED and is stable for discharge at this time Advised outpatient follow up Return precautions given Disposition - Clinical Impression Clinical Impression: Malingering - Patient ED Disposition Is Patient to be Admitted: No Counseled Patient/Family Regarding: Studies Performed, Diagnosis, Need For Followup - Disposition Referrals: Chanelle Rowe MD [Primary Care Provider] - Disposition: Routine/Home Disposition Time: 06:11 Condition: IMPROVED
[2018-03-09 06:03] LABS: BASO % 0.7 % (0.0-2.0); EOS # 0.1 K/uL (0.0-0.7); EOS % 6.9 % (0.0-4.0); HEMOGLOBIN 8.1 g/dL (12.0-18.0); LYMPH # 0.5 K/uL (1.0-4.3); LYMPH % 25.2 % (20.0-40.0); MEAN CELL VOLUME 86.2 fl (80.0-94.0); MEAN CORPUSCULAR HGB CONC 33.6 g/dL (33.0-37.0); MEAN PLATELET VOLUME 7.3 fl (7.2-11.7); MONO # 0.3 K/uL (0.0-0.8); MONO % 16.3 % (0.0-10.0); NEUT # 1.1 K/uL (1.8-7.0); NEUT % 50.9 % (50.0-75.0); NRBC % 0.1 % (0.0-0.0); RBC 2.81 Mil/uL (4.40-5.90); RED CELL DISTRIBUTION WIDTH 20.1 % (11.5-14.5); WHITE BLOOD COUNT 2.1 K/uL (4.8-10.8)
== END 2018-03-09 06:30 | disposition home or self-care (01) ==
LOC: H.ER 05:04
DX: K62.5 Hemorrhage of anus and rectum (principal); Z76.5 Malingerer [conscious simulation]
CPT/HCPCS: 85025; 99283; G0328

== ENCOUNTER 2018-03-09 13:14 | Emergency (ER) | payer MEDICAID ==
[2018-03-09 13:14] VITALS: BMI 24.0
[2018-03-09 13:31] VITALS: RESP 18; O2SAT 99
--- NOTE | 2018-03-09 17:08 | ED PDOC ---
HPI: General Adult Time Seen by Provider: 03/09/18 13:40 Chief Complaint (Nursing): Trauma Chief Complaint (Provider): possible seizure History Per: Patient History/Exam Limitations: no limitations Onset/Duration Of Symptoms: Hrs (today) Additional Complaint(s): Shreyas Sepulveda is a 52 year old male, with a past medical history of seizure disorder, who presents to the emergency department for an unwitnessed possible seizure outside while waiting for his friends. Patient is well known to ED for multiple visit and bed seeking behavior. Patient reports feeling well and is just hungry. Patient states he missed his keppra dose today and is concerned for a possible seizure PMD: None provided. Past Medical History Reviewed: Historical Data, Nursing Documentation, Vital Signs Vital Signs: Last Vital Signs Temp 97.6 F 03/09/18 18:00 Pulse 88 03/09/18 18:00 Resp 18 03/09/18 18:00 BP 106/78 03/09/18 18:00 Pulse Ox 99 03/09/18 19:21 - Medical History PMH: Anemia, Anxiety, Back Problems (herniated disc), Deep Vein Thrombosis, Fractures (rib, left shoulder, left hand 5th digit, humerus), Gastritis, Gall Bladder Disease (Cholelithiasis), Pancreatitis, Seizures, Chronic Pain (left shoulder) Denies: CHF, HIV, Hypercholesterolemia, Chronic Kidney Disease, Sexually Transmitted Disease - Surgical History Surgical History: Endoscopy - Family History Family History: States: Unknown Family Hx - Immunization History Hx Tetanus Toxoid Vaccination: Yes Hx Influenza Vaccination: Yes Hx Pneumococcal Vaccination: Yes - Home Medications Home Medications: Ambulatory Orders Medication Instructions Recorded Lactulose [Enulose] 20 gm PO BID #40 udc 03/05/18 Pantoprazole [Protonix EC Tab] 40 mg PO DAILY #30 ect 03/05/18 levETIRAcetam [Keppra] 500 mg PO Q12H #60 tab 03/05/18 - Allergies Allergies/Adverse Reactions: Allergies Allergy/AdvReac Type Severity Reaction Status Date / Time aspirin Allergy NAUSEA Verified 03/09/18 13:31 ibuprofen [From Motrin] Allergy NAUSEA Verified 03/09/18 13:31 naproxen Allergy RASH Verified 03/09/18 13:31 NSAIDS (Non-Steroidal Allergy NAUSEA Verified 03/09/18 13:31 Anti-Inflamma Review of Systems ROS Statement: Except As Marked, All Systems Reviewed And Found Negative Constitutional: Positive for: Weakness (generalized) Physical Exam - Reviewed Nursing Documentation Reviewed: Yes Vital Signs Reviewed: Yes - Physical Exam Appears: Positive for: No Acute Distress Head Exam: Positive for: ATRAUMATIC, NORMOCEPHALIC Skin: Positive for: Normal Color, Warm, Dry Eye Exam: Positive for: Normal appearance Neck: Positive for: Painless ROM Cardiovascular/Chest: Positive for: Regular Rate, Rhythm. Negative for: Murmur Respiratory: Positive for: Normal Breath Sounds. Negative for: Respiratory Distress Extremity: Positive for: Normal ROM (all extremities). Negative for: Deformity Neurologic/Psych: Positive for: Alert, Oriented (x3), Gait (steady). Negative for: Motor/Sensory Deficits - ECG O2 Sat by Pulse Oximetry: 99 (RA) Pulse Ox Interpretation: Normal Medical Decision Making Medical Decision Making: Time: 13:40 Initial Impression: Fatigue, malingering Initial Plan: --CMP --CBC w/ differential --Keppra 500 mg PO --Reevaluation Scribe Attestation: Documented by Giovany Puri, acting as a scribe for Ana María Jc PA-C Provider Scribe Attestation: All medical record entries made by the Scribe were at my direction and personally dictated by me. I have reviewed the chart and agree that the record accurately reflects my personal performance of the history, physical exam, medical decision making, and the department course for this patient. I have also personally directed, reviewed, and agree with the discharge instructions and disposition. Disposition - Clinical Impression Clinical Impression: Fatigue - Patient ED Disposition Is Patient to be Admitted: No Doctor Will See Patient In The: Office - Disposition Disposition: Routine/Home Disposition Time: 20:30 Condition: STABLE Instructions: Fatigue (DC) Forms: [employer] (Namibian)
[2018-03-09 20:55] VITALS: BP 106/78; PULSE 88; TEMP 97.6
== END 2018-03-09 20:55 | disposition home or self-care (01) ==
LOC: H.ER 13:14
DX: R53.83 Other fatigue (principal)

== ENCOUNTER 2018-03-09 20:27 | Emergency (ER) | payer MEDICAID ==
[2018-03-09 20:27] VITALS: BMI 24.0
[2018-03-09 20:36] VITALS: PULSE 76; O2SAT 97
--- NOTE | 2018-03-09 21:30 | ED PDOC ---
HPI: Trauma/Fall - HPI Time Seen by Provider: 03/09/18 20:37 Chief Complaint (Nursing): Trauma Chief Complaint (Provider): Trauma History Per: Patient History/Exam Limitations: no limitations Onset/Duration Of Symptoms: Mins Additional Complaint(s): 52 y/o male with a PMHx of seizures brought in by EMS for evaluation of a possible seizure. Patient was found in the park on the ground by a bystander who called EMS. Patient was recently evaluated and treated from this ED where he was given a dose of Keppra earlier today. Patient is well known to the provider and ER staff for frequent visits and bed malingering behavior. PMD: No Provider Past Medical History Reviewed: Historical Data, Nursing Documentation, Vital Signs Vital Signs: Last Vital Signs Temp 98.3 F 03/09/18 20:33 Pulse 76 03/09/18 20:33 Resp 16 03/09/18 20:33 BP 122/76 03/09/18 20:33 Pulse Ox 97 03/09/18 20:33 - Medical History PMH: Anemia, Anxiety, Back Problems (herniated disc), Deep Vein Thrombosis, Fractures (rib, left shoulder, left hand 5th digit, humerus), Gastritis, Gall Bladder Disease (Cholelithiasis), Pancreatitis, Seizures, Chronic Pain (left shoulder) Denies: CHF, HIV, Hypercholesterolemia, Chronic Kidney Disease, Sexually Transmitted Disease - Surgical History Surgical History: Endoscopy - Family History Family History: States: Unknown Family Hx - Social History Alcohol: > 2 Drinks/Day - Immunization History Hx Tetanus Toxoid Vaccination: Yes Hx Influenza Vaccination: Yes Hx Pneumococcal Vaccination: Yes - Home Medications Home Medications: Ambulatory Orders Medication Instructions Recorded Lactulose [Enulose] 20 gm PO BID #40 udc 03/05/18 Pantoprazole [Protonix EC Tab] 40 mg PO DAILY #30 ect 03/05/18 levETIRAcetam [Keppra] 500 mg PO Q12H #60 tab 03/05/18 - Allergies Allergies/Adverse Reactions: Allergies Allergy/AdvReac Type Severity Reaction Status Date / Time aspirin Allergy NAUSEA Verified 03/09/18 13:31 ibuprofen [From Motrin] Allergy NAUSEA Verified 03/09/18 13:31 naproxen Allergy RASH Verified 03/09/18 13:31 NSAIDS (Non-Steroidal Allergy NAUSEA Verified 03/09/18 13:31 Anti-Inflamma Review of Systems ROS Statement: Except As Marked, All Systems Reviewed And Found Negative Neurological: Positive for: Seizures (Possible) Physical Exam - Reviewed Nursing Documentation Reviewed: Yes Vital Signs Reviewed: Yes - Physical Exam Appears: Positive for: No Acute Distress Head Exam: Positive for: ATRAUMATIC, NORMOCEPHALIC Skin: Positive for: Normal Color, Warm, Dry Eye Exam: Positive for: Normal appearance, EOMI, PERRL Neck: Positive for: Normal, Painless ROM Cardiovascular/Chest: Positive for: Regular Rate, Rhythm. Negative for: Murmur Respiratory: Positive for: Normal Breath Sounds. Negative for: Respiratory Distress Gastrointestinal/Abdominal: Positive for: Normal Exam, Soft. Negative for: Tenderness Extremity: Positive for: Normal ROM. Negative for: Deformity Neurologic/Psych: Positive for: Alert, Oriented. Negative for: Motor/Sensory Deficits - ECG O2 Sat by Pulse Oximetry: 97 (RA) Pulse Ox Interpretation: Normal Medical Decision Making Medical Decision Making: Plan: Patient to be observed in ER pending clinical sobriety. 0621 Patient is awake, alert and oriented x 3 with steady gait. Patient rested entire night in ER with no seizure like activities. Stable for discharge home. Diagnosis: Malingering ____ Scribe Attestation: Documented by Tutu Butler acting as a scribe for Olaf Fernandez MD. Provider Scribe Attestation: All medical record entries made by the Scribe were at my direction and personally dictated by me. I have reviewed the chart and agree that the record accurately reflects my personal performance of the history, physical exam, medical decision making, and the department course for this patient. I have also personally directed, reviewed, and agree with the discharge instructions and disposition. Disposition - Clinical Impression Clinical Impression: Malingering - Disposition Disposition: Routine/Home Disposition Time: 06:22 Condition: STABLE Forms: [employer] ([place] Islander)
[2018-03-10 06:43] VITALS: BP 124/81; RESP 18; TEMP 98.1
== END 2018-03-10 06:42 | disposition home or self-care (01) ==
LOC: H.ER 20:27
DX: Z76.5 Malingerer [conscious simulation] (principal)

== ENCOUNTER 2018-03-10 21:30 | Emergency (ER) | payer MEDICAID ==
[2018-03-10 21:30] VITALS: BMI 24.0
[2018-03-10 23:01] VITALS: RESP 18
[2018-03-11] MEDS ORDERED: Amoxicillin-Clav 875-125 mg Tab PO STA (01:47)
--- NOTE | 2018-03-11 02:08 | ED PDOC ---
HPI: General Adult Time Seen by Provider: 03/10/18 23:54 Chief Complaint (Nursing): GI Problem Chief Complaint (Provider): Blood in vomit History Per: Patient Additional Complaint(s): 52yo male, well known to ER facility and self, comes to ER complaining of blood tinged vomiting x 1. He also reports a dog bite, from a well known and domesticated dog, to his right 4th digit. Patient states the dog is up to date with all his vaccines. He denies any fever, chills, abdominal pain, and offers no other complaints. Past Medical History Reviewed: Historical Data, Nursing Documentation, Vital Signs Vital Signs: Last Vital Signs Temp 98.3 F 03/11/18 04:44 Pulse 86 03/11/18 04:44 Resp 18 03/11/18 04:44 BP 116/65 03/11/18 04:44 Pulse Ox 100 03/16/18 23:29 - Medical History PMH: Anemia, Anxiety, Back Problems (herniated disc), Deep Vein Thrombosis, Fractures (rib, left shoulder, left hand 5th digit, humerus), Gastritis, Gall Bladder Disease (Cholelithiasis), Pancreatitis, Seizures, Chronic Pain (left shoulder) Denies: CHF, HIV, Hypercholesterolemia, Chronic Kidney Disease, Sexually Transmitted Disease - Surgical History Surgical History: Endoscopy - Family History Family History: States: Unknown Family Hx - Immunization History Hx Tetanus Toxoid Vaccination: Yes Hx Influenza Vaccination: Yes Hx Pneumococcal Vaccination: Yes - Home Medications Home Medications: Ambulatory Orders Medication Instructions Recorded Lactulose [Enulose] 20 gm PO BID #40 udc 03/05/18 Pantoprazole [Protonix EC Tab] 40 mg PO DAILY #30 ect 03/05/18 Amoxicillin/Clavulanate [Augmentin 1 tab PO BID #14 tab 03/11/18 875 MG-125 MG] levETIRAcetam [Keppra] 500 mg PO Q12H #60 tab 03/13/18 - Allergies Allergies/Adverse Reactions: Allergies Allergy/AdvReac Type Severity Reaction Status Date / Time aspirin Allergy NAUSEA Verified 03/16/18 16:54 ibuprofen [From Motrin] Allergy NAUSEA Verified 03/16/18 16:54 naproxen Allergy RASH Verified 03/16/18 16:54 NSAIDS (Non-Steroidal Allergy NAUSEA Verified 03/16/18 16:54 Anti-Inflamma Review of Systems ROS Statement: Except As Marked, All Systems Reviewed And Found Negative Constitutional: Negative for: Fever, Chills Cardiovascular: Negative for: Chest Pain Respiratory: Negative for: Shortness of Breath Gastrointestinal: Positive for: Vomiting (x 1). Negative for: Abdominal Pain Skin: Positive for: Other (dog bite to right 4th digit) Physical Exam - Reviewed Nursing Documentation Reviewed: Yes Vital Signs Reviewed: Yes - Physical Exam Appears: Positive for: No Acute Distress Head Exam: Positive for: ATRAUMATIC Skin: Positive for: Normal Color Eye Exam: Positive for: Normal appearance Neck: Positive for: Supple Cardiovascular/Chest: Positive for: Regular Rate, Rhythm Respiratory: Positive for: Normal Breath Sounds Gastrointestinal/Abdominal: Positive for: Normal Exam Extremity: Positive for: Normal ROM (FROM of all digits.), Capillary Refill (< 2 seconds), Other (abrasions noted to dorsum of right 4th digit; neurovascular sensations intact.) Neurologic/Psych: Positive for: Alert, Oriented - ECG O2 Sat by Pulse Oximetry: 100 (RA) Pulse Ox Interpretation: Normal Medical Decision Making Medical Decision Making: Impression: Wound care Plan: * Wounds cleaned with betadine and sterile water; bacitracin and sterile dressing applied Patient given Tetanus booster and Amoxicillin as well. Patient stable for discharge home. Scribe Attestation: Documented by Kajal Chakraborty, acting as a scribe for Amanda Washington MD. Provider Scribe Attestation: All medical record entries made by the Scribe were at my direction and personally dictated by me. I have reviewed the chart and agree that the record accurately reflects my personal performance of the history, physical exam, [facility] decision making, and the department course for this patient. I have also personally directed, reviewed, and agree with the discharge instructions and disposition. Disposition - Clinical Impression Clinical Impression: Dog bite - Disposition Referrals: [facility] [Outside] [facility] [Outside] Chanelle Rowe MD [Primary Care Provider] - Disposition Time: 05:13 Condition: IMPROVED Additional Instructions: follow up with your doctor in 1-2 day for reevaluation or in clinic return to the ED with any worsening or concerning symptoms Prescriptions: Amoxicillin/Clavulanate [Augmentin 875 MG-125 MG] 1 tab PO BID #14 tab Instructions: Animal Bites (DC) Forms: [employer] (Puerto Rican)
[2018-03-11] MEDS ORDERED: Amoxicillin-Clav 875-125 mg Tab PO ONE (02:49)
[2018-03-11] MEDS ORDERED: Tdap Vaccine 0.5 ml Vial (10-64 yrs) IM ONE ×2 (04:25→04:34)
[2018-03-11 04:45] VITALS: BP 116/65; PULSE 86; TEMP 98.3
[2018-03-16 23:30] VITALS: O2SAT 100
== END 2018-03-11 05:13 | disposition home or self-care (01) ==
LOC: H.ER 21:30
DX: S61.254A Open bite of right ring finger without damage to nail, initial encounter (principal); W54.0XXA Bitten by dog, initial encounter; Z86.718 Personal history of other venous thrombosis and embolism; Z88.6 Allergy status to analgesic agent; Z23 Encounter for immunization

== ENCOUNTER 2018-03-11 17:21 | Emergency (ER) | payer MEDICAID ==
[2018-03-11 17:21] VITALS: BMI 24.0
[2018-03-11 17:49] VITALS: BP 93/50; PULSE 94; RESP 16; TEMP 99.2; O2SAT 99
== END 2018-03-11 22:00 | disposition left against medical advice (07) ==
LOC: H.ER 17:21
DX: Z02.89 Encounter for other administrative examinations (principal)

== ENCOUNTER 2018-03-12 04:53 | Emergency (ER) | payer MEDICAID ==
[2018-03-12 04:53] VITALS: BMI 24.0
[2018-03-12 05:34] VITALS: BP 118/65; PULSE 83; RESP 18; TEMP 98.9; O2SAT 98
--- NOTE | 2018-03-12 05:55 | ED PDOC ---
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 Pt denies complaint now. States he did not hurt himself. Pt walked in carrying walker. Past Medical History Reviewed: Historical Data, Nursing Documentation, Vital Signs Vital Signs: Last Vital Signs Temp 98.9 F 03/12/18 05:22 Pulse 83 03/12/18 05:22 Resp 18 03/12/18 05:22 BP 118/65 03/12/18 05:22 Pulse Ox 98 03/12/18 05:22 - Medical History PMH: Anemia, Anxiety, Back Problems (herniated disc), Deep Vein Thrombosis, Fractures (rib, left shoulder, left hand 5th digit, humerus), Gastritis, Gall Bladder Disease (Cholelithiasis), Pancreatitis, Seizures, Chronic Pain (left shoulder) Denies: CHF, HIV, Hypercholesterolemia, Chronic Kidney Disease, Sexually Transmitted Disease - Surgical History Surgical History: Endoscopy - Family History Family History: States: Unknown Family Hx - Immunization History Hx Tetanus Toxoid Vaccination: Yes Hx Influenza Vaccination: Yes Hx Pneumococcal Vaccination: Yes - Home Medications Home Medications: Ambulatory Orders Medication Instructions Recorded Lactulose [Enulose] 20 gm PO BID #40 udc 03/05/18 Pantoprazole [Protonix EC Tab] 40 mg PO DAILY #30 ect 03/05/18 levETIRAcetam [Keppra] 500 mg PO Q12H #60 tab 03/05/18 Amoxicillin/Clavulanate [Augmentin 1 tab PO BID #14 tab 03/11/18 875 MG-125 MG] - Allergies Allergies/Adverse Reactions: Allergies Allergy/AdvReac Type Severity Reaction Status Date / Time aspirin Allergy NAUSEA Verified 03/11/18 17:43 ibuprofen [From Motrin] Allergy NAUSEA Verified 03/11/18 17:43 naproxen Allergy RASH Verified 03/11/18 17:43 NSAIDS (Non-Steroidal Allergy NAUSEA Verified 03/11/18 17:43 Anti-Inflamma Review of Systems ROS Statement: Except As Marked, All Systems Reviewed And Found Negative Constitutional: Negative for: Fever, Chills Gastrointestinal: Negative for: Nausea, Vomiting, Abdominal Pain Genitourinary Male: Negative for: Dysuria Neurological: Positive for: Seizures. Negative for: Dizziness Psych: Negative for: Psychosis, Suicidal ideation Physical Exam - Reviewed Nursing Documentation Reviewed: Yes Vital Signs Reviewed: Yes - Physical Exam Appears: Positive for: Well, Non-toxic, No Acute Distress Head Exam: Positive for: ATRAUMATIC, NORMAL INSPECTION, NORMOCEPHALIC Skin: Positive for: Normal Color, Warm, DRY Eye Exam: Positive for: Normal appearance ENT: Positive for: Normal ENT Inspection Neck: Positive for: Normal, Painless ROM Cardiovascular/Chest: Positive for: Regular Rate, Rhythm Respiratory: Positive for: Normal Breath Sounds. Negative for: Accessory Muscle Use, Respiratory Distress Back: Positive for: Normal Inspection Extremity: Positive for: Normal ROM Neurologic/Psych: Positive for: Alert, Oriented - ECG O2 Sat by Pulse Oximetry: 98 Disposition - Clinical Impression Clinical Impression: Homelessness - Patient ED Disposition Is Patient to be Admitted: No Counseled Patient/Family Regarding: Diagnosis, Need For Followup - Disposition Disposition: Routine/Home Disposition Time: 05:55 Condition: STABLE
== END 2018-03-12 06:30 | disposition home or self-care (01) ==
LOC: H.ER 04:53
DX: R56.9 Unspecified convulsions (principal); Z59.0 Homelessness; G89.29 Other chronic pain; Z86.718 Personal history of other venous thrombosis and embolism; Z88.6 Allergy status to analgesic agent

== ENCOUNTER 2018-03-12 13:33 | Emergency (ER) | payer MEDICAID ==
[2018-03-12 13:34] VITALS: BMI 24.0
--- NOTE | 2018-03-12 14:05 | ED PDOC ---
HPI: Seizure Time Seen by Provider: 03/12/18 13:58 Chief Complaint (Nursing): Seizure Chief Complaint (Provider): SEIZURE History Per: Patient (52 Y/O MALE H/O SEIZURE STATES HE MISSED DOSE OF KEPPRA AND HAD SEIZURE EARLIER TODAY. DENIES ANY OTHER COMPLAINTS.) Past Medical History Reviewed: Historical Data, Nursing Documentation, Vital Signs Vital Signs: Last Vital Signs Temp 97.7 F 03/12/18 13:41 Pulse 89 03/12/18 13:41 Resp 20 03/12/18 13:41 BP 109/65 03/12/18 13:41 Pulse Ox 99 03/12/18 13:41 - Medical History PMH: Anemia, Anxiety, Back Problems (herniated disc), Deep Vein Thrombosis, Fractures (rib, left shoulder, left hand 5th digit, humerus), Gastritis, Gall Bladder Disease (Cholelithiasis), Pancreatitis, Seizures, Chronic Pain (left shoulder) Denies: CHF, HIV, Hypercholesterolemia, Chronic Kidney Disease, Sexually Transmitted Disease - Surgical History Surgical History: Endoscopy - Family History Family History: States: Unknown Family Hx - Immunization History Hx Tetanus Toxoid Vaccination: Yes Hx Influenza Vaccination: Yes Hx Pneumococcal Vaccination: Yes - Home Medications Home Medications: Ambulatory Orders Medication Instructions Recorded Lactulose [Enulose] 20 gm PO BID #40 udc 03/05/18 Pantoprazole [Protonix EC Tab] 40 mg PO DAILY #30 ect 03/05/18 levETIRAcetam [Keppra] 500 mg PO Q12H #60 tab 03/05/18 Amoxicillin/Clavulanate [Augmentin 1 tab PO BID #14 tab 03/11/18 875 MG-125 MG] - Allergies Allergies/Adverse Reactions: Allergies Allergy/AdvReac Type Severity Reaction Status Date / Time aspirin Allergy NAUSEA Verified 03/12/18 13:41 ibuprofen [From Motrin] Allergy NAUSEA Verified 03/12/18 13:41 naproxen Allergy RASH Verified 03/12/18 13:41 NSAIDS (Non-Steroidal Allergy NAUSEA Verified 03/12/18 13:41 Anti-Inflamma Review of Systems ROS Statement: Except As Marked, All Systems Reviewed And Found Negative Physical Exam - Reviewed Nursing Documentation Reviewed: Yes Vital Signs Reviewed: Yes - Physical Exam Appears: Positive for: Well, Non-toxic, No Acute Distress Head Exam: Positive for: ATRAUMATIC, NORMAL INSPECTION, NORMOCEPHALIC Skin: Positive for: Normal Color, Warm, DRY Eye Exam: Positive for: EOMI, Normal appearance, PERRL ENT: Positive for: Normal ENT Inspection Neck: Positive for: Normal, Painless ROM Cardiovascular/Chest: Positive for: Regular Rate, Rhythm Respiratory: Positive for: CNT, Normal Breath Sounds Gastrointestinal/Abdominal: Positive for: Normal Exam, Soft Back: Positive for: Normal Inspection Extremity: Positive for: Normal ROM Neurologic/Psych: Positive for: Alert, Oriented - ECG O2 Sat by Pulse Oximetry: 99 - Progress ED Course And Treament: PATIENT WATCHING TV IN ED AND EATING MEAL. KEPPRA 500MG X 1 DOSE ORDERED FOR HIM. Disposition - Clinical Impression Clinical Impression: Seizure disorder - Patient ED Disposition Is Patient to be Admitted: No - Disposition Disposition: Routine/Home Disposition Time: 14:04 Condition: FAIR Instructions: Seizures, Adult (DC)
[2018-03-12 17:31] VITALS: BP 128/72; PULSE 76; RESP 18; TEMP 98; O2SAT 98
== END 2018-03-12 15:30 | disposition home or self-care (01) ==
LOC: H.ER 13:33
DX: G40.909 Epilepsy, unspecified, not intractable, without status epilepticus (principal); G89.29 Other chronic pain; Z86.718 Personal history of other venous thrombosis and embolism; Z88.6 Allergy status to analgesic agent

== ENCOUNTER 2018-03-13 03:24 | Emergency (ER) | payer MEDICAID ==
[2018-03-13 03:24] VITALS: BMI 24.0
[2018-03-13 03:59] VITALS: RESP 16; TEMP 98.6; O2SAT 98
--- NOTE | 2018-03-13 04:39 | ED PDOC ---
HPI: General Adult Time Seen by Provider: 03/13/18 03:37 Chief Complaint (Nursing): Seizure Chief Complaint (Provider): Seizure History Per: Patient History/Exam Limitations: no limitations Additional Complaint(s): 52 year old male, who is well known to this provider and ED, presents to this ED complaining of recurrent seizures. Patient is asking to eat, drink, and watch TV at this time and is asking for prescription for Keppra. Patient has no other complaints at this time. PMD: none provided Past Medical History Reviewed: Historical Data, Nursing Documentation, Vital Signs Vital Signs: Last Vital Signs Temp 98.6 F 03/13/18 03:30 Pulse 87 03/13/18 07:30 Resp 16 03/13/18 07:30 BP 130/80 03/13/18 07:30 Pulse Ox 98 03/13/18 07:30 - Medical History PMH: Anemia, Anxiety, Back Problems (herniated disc), Deep Vein Thrombosis, Fractures (rib, left shoulder, left hand 5th digit, humerus), Gastritis, Gall Bladder Disease (Cholelithiasis), Pancreatitis, Seizures, Chronic Pain (left shoulder) Denies: CHF, HIV, Hypercholesterolemia, Chronic Kidney Disease, Sexually Transmitted Disease - Surgical History Surgical History: Endoscopy - Family History Family History: States: Unknown Family Hx - Immunization History Hx Tetanus Toxoid Vaccination: Yes Hx Influenza Vaccination: Yes Hx Pneumococcal Vaccination: Yes - Home Medications Home Medications: Ambulatory Orders Medication Instructions Recorded Lactulose [Enulose] 20 gm PO BID #40 udc 03/05/18 Pantoprazole [Protonix EC Tab] 40 mg PO DAILY #30 ect 03/05/18 Amoxicillin/Clavulanate [Augmentin 1 tab PO BID #14 tab 03/11/18 875 MG-125 MG] levETIRAcetam [Keppra] 500 mg PO Q12H #60 tab 03/13/18 - Allergies Allergies/Adverse Reactions: Allergies Allergy/AdvReac Type Severity Reaction Status Date / Time aspirin Allergy NAUSEA Verified 03/13/18 19:47 ibuprofen [From Motrin] Allergy NAUSEA Verified 03/13/18 19:47 naproxen Allergy RASH Verified 03/13/18 19:47 NSAIDS (Non-Steroidal Allergy NAUSEA Verified 03/13/18 19:47 Anti-Inflamma Review of Systems ROS Statement: Except As Marked, All Systems Reviewed And Found Negative Neurological: Positive for: Seizures Physical Exam - Reviewed Nursing Documentation Reviewed: Yes Vital Signs Reviewed: Yes - Physical Exam Appears: Positive for: Non-toxic, No Acute Distress Head Exam: Positive for: ATRAUMATIC, NORMOCEPHALIC Skin: Positive for: Normal Color, Warm, Dry Eye Exam: Positive for: Normal appearance Neck: Positive for: Normal, Painless ROM Cardiovascular/Chest: Positive for: Regular Rate, Rhythm. Negative for: Murmur Respiratory: Positive for: Normal Breath Sounds. Negative for: Wheezing, Respiratory Distress Gastrointestinal/Abdominal: Positive for: Normal Exam, Soft. Negative for: Tenderness Extremity: Positive for: Normal ROM Neurologic/Psych: Positive for: Alert, Oriented. Negative for: Motor/Sensory Deficits - ECG O2 Sat by Pulse Oximetry: 98 (RA) Pulse Ox Interpretation: Normal Medical Decision Making Medical Decision Making: Initial Plan: --ECG --Glucose --Keppra 500mg PO Scribe Attestation: Documented by Carmine Rodriguez acting as a scribe for Cathy Salazar MD. Provider Scribe Attestation: All medical record entries made by the Scribe were at my direction and personally dictated by me. I have reviewed the chart and agree that the record accurately reflects my personal performance of the history, physical exam, medical decision making, and the department course for this patient. I have also personally directed, reviewed, and agree with the discharge instructions and disposition. Disposition - Clinical Impression Clinical Impression: Malingering, Seizures - Patient ED Disposition Is Patient to be Admitted: No Doctor Will See Patient In The: Office Counseled Patient/Family Regarding: Studies Performed, Diagnosis - Disposition Referrals: [facility] [Outside] Disposition: Routine/Home Disposition Time: 06:30 Condition: GOOD Prescriptions: levETIRAcetam [Keppra] 500 mg PO Q12H #60 tab Instructions: Seizures, Adult (DC)
[2018-03-13 09:08] VITALS: BP 130/80; PULSE 87
== END 2018-03-13 07:55 | disposition home or self-care (01) ==
LOC: H.ER 03:24
DX: Z76.5 Malingerer [conscious simulation] (principal); G40.909 Epilepsy, unspecified, not intractable, without status epilepticus

== ENCOUNTER 2018-03-13 14:27 | Emergency (ER) | payer MEDICAID ==
[2018-03-13 14:27] VITALS: BMI 24.0
[2018-03-13 14:44] VITALS: TEMP 97.4
--- NOTE | 2018-03-13 15:06 | ED PDOC ---
HPI: General Adult Time Seen by Provider: 03/13/18 14:56 Chief Complaint (Nursing): Seizure Chief Complaint (Provider): seizure History Per: Patient Additional Complaint(s): 52 y/o male well known to ED for multiple visits daily presents this afternoon asking for sandwich. He also states he does not know what he did with his keppra rx. Pateint was seen earlier today for same and was given rx keppra. Past Medical History Reviewed: Historical Data, Nursing Documentation, Vital Signs Vital Signs: Last Vital Signs Temp 97.4 F L 03/13/18 14:41 Pulse 82 03/13/18 14:41 Resp 20 03/13/18 14:41 BP 113/59 L 03/13/18 14:41 Pulse Ox 98 03/13/18 15:06 - Medical History PMH: Anemia, Anxiety, Back Problems (herniated disc), Deep Vein Thrombosis, Fractures (rib, left shoulder, left hand 5th digit, humerus), Gastritis, Gall Bladder Disease (Cholelithiasis), Seizures, Chronic Pain (left shoulder) - Surgical History Surgical History: Endoscopy - Family History Family History: States: No Known Family Hx - Living Arrangements Living Arrangements: With Family - Social History Current smoker - smoking cessation education provided: Yes Alcohol: > 2 Drinks/Day Drugs: Denies - Home Medications Home Medications: Ambulatory Orders Medication Instructions Recorded Lactulose [Enulose] 20 gm PO BID #40 udc 03/05/18 Pantoprazole [Protonix EC Tab] 40 mg PO DAILY #30 ect 03/05/18 Amoxicillin/Clavulanate [Augmentin 1 tab PO BID #14 tab 03/11/18 875 MG-125 MG] levETIRAcetam [Keppra] 500 mg PO Q12H #60 tab 03/13/18 - Allergies Allergies/Adverse Reactions: Allergies Allergy/AdvReac Type Severity Reaction Status Date / Time aspirin Allergy NAUSEA Verified 03/13/18 14:41 ibuprofen [From Motrin] Allergy NAUSEA Verified 03/13/18 14:41 naproxen Allergy RASH Verified 03/13/18 14:41 NSAIDS (Non-Steroidal Allergy NAUSEA Verified 03/13/18 14:41 Anti-Inflamma Review of Systems ROS Statement: Except As Marked, All Systems Reviewed And Found Negative Constitutional: Negative for: Fever Cardiovascular: Negative for: Chest Pain Respiratory: Negative for: Cough Gastrointestinal: Negative for: Nausea, Vomiting Neurological: Negative for: Headache, Dizziness Physical Exam - Reviewed Nursing Documentation Reviewed: Yes Vital Signs Reviewed: Yes - Physical Exam Appears: Positive for: Well, Non-toxic, No Acute Distress Skin: Positive for: Normal Color. Negative for: Rash Eye Exam: Positive for: Normal appearance Cardiovascular/Chest: Positive for: Regular Rate, Rhythm Respiratory: Positive for: Normal Breath Sounds. Negative for: Respiratory Distress Extremity: Positive for: Normal ROM Neurologic/Psych: Positive for: Alert, Oriented, Gait (steady) - ECG O2 Sat by Pulse Oximetry: 98 Pulse Ox Interpretation: Normal Medical Decision Making Medical Decision Makin52 year old male with history of alcohol abuse and seizures Glucose POC - 109. Disposition - Clinical Impression Clinical Impression: Seizure disorder, Chronic alcohol abuse - Patient ED Disposition Is Patient to be Admitted: No - Disposition Referrals: [facility] [Outside] Disposition: Routine/Home Disposition Time: 15:29 Condition: STABLE Instructions: Seizures, Adult (DC), Alcohol Abuse and Alcoholism (DC) Forms: [employer] (Latvian)
[2018-03-13 15:41] VITALS: BP 111/61; PULSE 101; RESP 18
[2018-03-13 15:42] VITALS: O2SAT 98
== END 2018-03-13 15:47 | disposition home or self-care (01) ==
LOC: H.ER 14:27
DX: G40.909 Epilepsy, unspecified, not intractable, without status epilepticus (principal); F10.10 Alcohol abuse, uncomplicated

== ENCOUNTER 2018-03-13 19:03 | Emergency (ER) | payer MEDICAID ==
[2018-03-13 19:04] VITALS: BMI 24.0
[2018-03-13 19:50] VITALS: BP 124/69; PULSE 79; RESP 19; TEMP 97.5; O2SAT 97
--- NOTE | 2018-03-13 20:00 | ED PDOC ---
HPI: General Adult Time Seen by Provider: 03/13/18 19:41 Chief Complaint (Nursing): Seizure Chief Complaint (Provider): Seizure History Per: Patient History/Exam Limitations: no limitations Additional Complaint(s): Shreyas Sepulveda is a 52 year old male with past medical history of frequent visits to ED for epilepsy and alcohol abuse who is presenting to the ED with complaints of a self-reported seizure, just prior to arrival. Patient denies taking his Keppra dose yet today. Patient has no other complaints at this time. Of note, this is his third visit to the ED today and he is requesting "dinner" at this time. PMD: Elvin Curry Past Medical History Reviewed: Historical Data, Nursing Documentation, Vital Signs Vital Signs: Last Vital Signs Temp 97.5 F L 03/13/18 19:47 Pulse 79 03/13/18 19:47 Resp 19 03/13/18 19:47 BP 124/69 03/13/18 19:47 Pulse Ox 97 03/13/18 23:43 - Medical History PMH: Anemia, Anxiety, Back Problems (herniated disc), Deep Vein Thrombosis, Fractures (rib, left shoulder, left hand 5th digit, humerus), Gastritis, Gall Bladder Disease (Cholelithiasis), Pancreatitis, Seizures, Chronic Pain (left shoulder) - Surgical History Surgical History: Endoscopy - Family History Family History: States: Unknown Family Hx - Social History Current smoker - smoking cessation education provided: Yes Alcohol: > 2 Drinks/Day - Home Medications Home Medications: Ambulatory Orders Medication Instructions Recorded Lactulose [Enulose] 20 gm PO BID #40 udc 03/05/18 Pantoprazole [Protonix EC Tab] 40 mg PO DAILY #30 ect 03/05/18 Amoxicillin/Clavulanate [Augmentin 1 tab PO BID #14 tab 03/11/18 875 MG-125 MG] levETIRAcetam [Keppra] 500 mg PO Q12H #60 tab 03/13/18 - Allergies Allergies/Adverse Reactions: Allergies Allergy/AdvReac Type Severity Reaction Status Date / Time aspirin Allergy NAUSEA Verified 03/13/18 19:47 ibuprofen [From Motrin] Allergy NAUSEA Verified 03/13/18 19:47 naproxen Allergy RASH Verified 03/13/18 19:47 NSAIDS (Non-Steroidal Allergy NAUSEA Verified 03/13/18 19:47 Anti-Inflamma Review of Systems ROS Statement: Except As Marked, All Systems Reviewed And Found Negative Neurological: Positive for: Seizures Physical Exam - Reviewed Nursing Documentation Reviewed: Yes Vital Signs Reviewed: Yes - Physical Exam Comments: GENERAL APPEARANCE: Patient is alert and oriented x 3, in no acute distress. Resting comfortably. SKIN: Warm, dry; (-) cyanosis ENMT: Mucous membranes moist. Airway patent: (-) stridor. NECK: Supple, FROM HEART AND CARDIOVASCULAR: (-) irregularity CHEST AND RESPIRATORY: (-) rales, (-) rhonchi, (-) wheezes; breath sounds equal. Respirations even and non-labored. Speaking in full sentences. ABDOMEN: Soft, (-) distention, (-) tenderness, (-) guarding. NEURO AND PSYCH: Mental status as above. Affect: Calm. (-) facial asymmetry. 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 Pupils equal and reactive. EOMI and painless. Speech : clear. Gait: steady with walker. Strength and smile symmetric. - ECG O2 Sat by Pulse Oximetry: 97 (RA) Pulse Ox Interpretation: Normal Medical Decision Making Medical Decision Making: Time: 19:55 Impression: seizure disorder and malingering Plan: --Keppra 500 mg PO --Accucheck Accucheck was 146. 2130 Patient sleeping comfortably in ED. 2225 Patient eating food tray. Tolerating PO intake without difficulty. 2345 On re-evaluation, patient reports improvement of symptoms. On exam, patient remains AAOx3, in no acute distress. Lungs clear to auscultation, cardiac RRR, abdomen soft, non-tender, repeat neuro exam shows no focal findings. Vitals stable. Lab/Diagnostic results d/w the patient in great detail. Diagnosis of seizure disorder, malingering d/w the patient. Based on history, exam and diagnostic results, plan will be for outpatient follow up. Patient was observed in ED for 4+ hours with no evidence of neurological deterioration. Patient instructed to follow-up with pmd / referral provided / the clinic in 1- 2 days without fail. Return to the emergency room at any time for any new or worsening symptoms. Patient states he fully agrees with and understands discharge instructions. States that he agrees with the plan and disposition. Verbalized and repeated discharge instructions and plan. I have given the patient opportunity to ask any additional questions. Scribe Attestation: Documented by Roxana Wang, acting as a scribe for Haydee Hayes PA-C. Provider Scribe Attestation: All medical record entries made by the Scribe were at my direction and personally dictated by me. I have reviewed the chart and agree that the record accurately reflects my personal performance of the history, physical exam, medical decision making, and the department course for this patient. I have also personally directed, reviewed, and agree with the discharge instructions and disposition. Disposition - Clinical Impression Clinical Impression: Malingering, Seizure disorder - Patient ED Disposition Is Patient to be Admitted: No Counseled Patient/Family Regarding: Studies Performed, Diagnosis, Need For Followup - Disposition Referrals: [facility] [Outside] Disposition: Routine/Home Disposition Time: 23:45 Condition: STABLE Additional Instructions: The emergency medical care you received today was directed at your acute symptoms. If you were prescribed any medication, please fill it and take as directed. It may take several days for your symptoms to resolve. Return to the Emergency Department if your symptoms worsen, do not improve, or if you have any other problems. Please contact your doctor in 2 days for re-evaluation and follow up / or call one of the physicians/clinics you have been referred to that are listed on the Patient Visit Information form that is included in your discharge packet. Bring any paperwork you were given at discharge with you along with any medications you are taking to your follow up visit. Our treatment cannot replace ongoing medical care by a primary care provider (PCP) outside of the emergency department. Instructions: Seizures, Adult (DC) Forms: [employer] (Tajik) Print Language: KAZAKH - POA Present On Arrival: None
== END 2018-03-13 23:45 | disposition home or self-care (01) ==
LOC: H.ER 19:03
DX: Z76.5 Malingerer [conscious simulation] (principal); G40.909 Epilepsy, unspecified, not intractable, without status epilepticus

== ENCOUNTER 2018-03-14 18:49 | Emergency (ER) | payer MEDICAID ==
[2018-03-14 18:49] VITALS: BMI 24.0
--- NOTE | 2018-03-14 19:09 | ED PDOC ---
HPI: Seizure Time Seen by Provider: 03/14/18 18:59 Chief Complaint (Nursing): Seizure Chief Complaint (Provider): Seizure History Per: Patient History/Exam Limitations: no limitations Additional Complaint(s): 52 year old male with a past medical history of frequent visits to ED for epilepsy and alcohol abuse, presents with complaints of a self-reported seizure, just prior to arrival. Patient denies taking his Keppra dose yet today - patient states his insurance will not cover another refill until 03/19/18. Patient also reports left sided rib pain from a fall a couple of days ago and is requesting a dose of Tylenol. Of note, patient was seen yesterday in ED three times for similar complaints. Patient is requesting a food tray at this time. PMD: [facility] Past Medical History Reviewed: Historical Data, Nursing Documentation, Vital Signs Vital Signs: Last Vital Signs Temp 98 F 03/14/18 23:34 Pulse 78 03/14/18 23:34 Resp 18 03/14/18 23:34 BP 122/70 03/14/18 23:34 Pulse Ox 97 03/14/18 23:34 - Medical History PMH: Anemia, Anxiety, Back Problems (herniated disc), Deep Vein Thrombosis, Fractures (rib, left shoulder, left hand 5th digit, humerus), Gastritis, Gall Bladder Disease (Cholelithiasis), Pancreatitis, Seizures, Chronic Pain (left shoulder) - Surgical History Surgical History: Endoscopy - Family History Family History: States: Unknown Family Hx - Social History Current smoker - smoking cessation education provided: Yes Alcohol: > 2 Drinks/Day - Immunization History Hx Tetanus Toxoid Vaccination: Yes - Home Medications Home Medications: Ambulatory Orders Medication Instructions Recorded Lactulose [Enulose] 20 gm PO BID #40 udc 03/05/18 Pantoprazole [Protonix EC Tab] 40 mg PO DAILY #30 ect 03/05/18 Amoxicillin/Clavulanate [Augmentin 1 tab PO BID #14 tab 03/11/18 875 MG-125 MG] levETIRAcetam [Keppra] 500 mg PO Q12H #60 tab 03/13/18 - Allergies Allergies/Adverse Reactions: Allergies Allergy/AdvReac Type Severity Reaction Status Date / Time aspirin Allergy NAUSEA Verified 03/13/18 19:47 ibuprofen [From Motrin] Allergy NAUSEA Verified 03/13/18 19:47 naproxen Allergy RASH Verified 03/13/18 19:47 NSAIDS (Non-Steroidal Allergy NAUSEA Verified 03/13/18 19:47 Anti-Inflamma Review of Systems ROS Statement: Except As Marked, All Systems Reviewed And Found Negative Neurological: Positive for: Seizures Physical Exam - Reviewed Nursing Documentation Reviewed: Yes Vital Signs Reviewed: Yes - Physical Exam Comments: GENERAL APPEARANCE: Patient is alert and oriented x 3, in no acute distress. Resting comfortably. SKIN: Warm, dry; (-) cyanosis ENMT: Mucous membranes moist. Airway patent: (-) stridor. NECK: Supple, FROM HEART AND CARDIOVASCULAR: (-) irregularity CHEST AND RESPIRATORY: (-) rales, (-) rhonchi, (-) wheezes; breath sounds equal. Respirations even and non-labored. Speaking in full sentences. (+) mild tenderness to left lateral and anterior lower ribs (-) deformity (-) ecchymosis (-) erythema (-) skin break ABDOMEN: Soft, (-) distention, (-) tenderness, (-) guarding. NEURO AND PSYCH: Mental status as above. Affect: Calm. (-) facial asymmetry. 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 Pupils equal and reactive. EOMI and painless. Speech: clear. Gait: steady with walker. - ECG O2 Sat by Pulse Oximetry: 98 (RA) Pulse Ox Interpretation: Normal Medical Decision Making Medical Decision Making: Initial Impression: Seizure disorder and malingering Initial Plan: --Accucheck --Tylenol 650mg PO --Keppra 500mg PO --Re-evaluation 21:28 Accucheck was 96 Tolerating PO intake without difficulty. 2200 Patient sleeping comfortably in ED stretcher. No acute distress noted. 2330 On re-evaluation, patient reports improvement of symptoms. On exam, patient remains AAOx3, in no acute distress. Lungs clear to auscultation, cardiac RRR, repeat neuro exam shows no focal findings. Vitals stable. Lab/Diagnostic results d/w the patient in great detail. Diagnosis of seizure disorder, malingering d/w the patient. Based on history, exam and diagnostic results, plan will be for outpatient follow up with clinic. Patient instructed to follow-up with pmd / referral provided / the clinic in 1- 2 days without fail. Return to the emergency room at any time for any new or worsening symptoms. Patient states he fully agrees with and understands dischar ge instructions. States that he agrees with the plan and disposition. Verbalized and repeated discharge instructions and plan. I have given the patient opportunity to ask any additional questions. --- Scribe Attestation: Documented by Carmine Rodriguez acting as a scribe for Haydee ROTHMAN. Provider Scribe Attestation: All medical record entries made by the Scribe were at my direction and personally dictated by me. I have reviewed the chart and agree that the record accurately reflects my personal performance of the history, physical exam, medical decision making, and the department course for this patient. I have also personally directed, reviewed, and agree with the discharge instructions and disposition. Disposition - Clinical Impression Clinical Impression: Seizure disorder, Malingering - Patient ED Disposition Is Patient to be Admitted: No Counseled Patient/Family Regarding: Studies Performed, Diagnosis, Need For Followup, Rx Given - Disposition Referrals: Chanelle Rowe MD [Staff Provider] - Former[facility] [Outside] Disposition: Routine/Home Disposition Time: 23:30 Condition: STABLE Additional Instructions: The emergency medical care you received today was directed at your acute symptoms. If you were prescribed any medication, please fill it and take as directed. It may take several days for your symptoms to resolve. Return to the Emergency Department if your symptoms worsen, do not improve, or if you have any other problems. Please contact your doctor in 2 days for re-evaluation and follow up / or call one of the physicians/clinics you have been referred to that are listed on the Patient Visit Information form that is included in your discharge packet. Bring any paperwork you were given at discharge with you along with any medications you are taking to your follow up visit. Our treatment cannot replace ongoing medical care by a primary care provider (PCP) outside of the emergency department. Instructions: Seizures, Adult (DC) Forms: [facility] (Italian) Print Language: CITIZEN OF [place] - POA Present On Arrival: None
[2018-03-14 23:35] VITALS: BP 122/70; PULSE 78; RESP 18; TEMP 98
[2018-03-14 23:45] VITALS: O2SAT 98
== END 2018-03-14 23:34 | disposition home or self-care (01) ==
LOC: SUPCPDRO 18:49 → H.ER 18:49
DX: G40.909 Epilepsy, unspecified, not intractable, without status epilepticus (principal); Z76.5 Malingerer [conscious simulation]; F17.200 Nicotine dependence, unspecified, uncomplicated; G89.29 Other chronic pain; Z86.718 Personal history of other venous thrombosis and embolism; Z88.6 Allergy status to analgesic agent

== ENCOUNTER 2018-03-15 15:08 | Emergency (ER) | payer MEDICAID ==
[2018-03-14 18:49] VITALS: BMI 24.0
--- NOTE | 2018-03-15 17:11 | ED PDOC ---
HPI: General Adult Time Seen by Provider: 03/15/18 17:11 Chief Complaint (Provider): seizure History Per: Patient Additional Complaint(s): 52-year-old male with history of seizure disorder and alcohol abuse presents requesting Keppra dose. Patient is well-known to emergency department for frequent daily visits. Past Medical History Reviewed: Historical Data, Nursing Documentation, Vital Signs - Medical History PMH: Anemia, Anxiety, Back Problems (herniated disc), Deep Vein Thrombosis, Fractures (rib, left shoulder, left hand 5th digit, humerus), Gastritis, Gall Bladder Disease (Cholelithiasis), Seizures, Chronic Pain (left shoulder) - Surgical History Surgical History: Endoscopy - Family History Family History: States: No Known Family Hx - Living Arrangements Living Arrangements: With Family - Social History Current smoker - smoking cessation education provided: Yes Alcohol: > 2 Drinks/Day Drugs: Denies - Home Medications Home Medications: Ambulatory Orders Medication Instructions Recorded Lactulose [Enulose] 20 gm PO BID #40 udc 03/05/18 Pantoprazole [Protonix EC Tab] 40 mg PO DAILY #30 ect 03/05/18 Amoxicillin/Clavulanate [Augmentin 1 tab PO BID #14 tab 03/11/18 875 MG-125 MG] levETIRAcetam [Keppra] 500 mg PO Q12H #60 tab 03/13/18 - Allergies Allergies/Adverse Reactions: Allergies Allergy/AdvReac Type Severity Reaction Status Date / Time aspirin Allergy NAUSEA Verified 03/13/18 19:47 ibuprofen [From Motrin] Allergy NAUSEA Verified 03/13/18 19:47 naproxen Allergy RASH Verified 03/13/18 19:47 NSAIDS (Non-Steroidal Allergy NAUSEA Verified 03/13/18 19:47 Anti-Inflamma Review of Systems ROS Statement: Except As Marked, All Systems Reviewed And Found Negative Constitutional: Negative for: Fever Neurological: Positive for: Seizures Psych: Positive for: Other (etoh) Physical Exam - Reviewed Nursing Documentation Reviewed: Yes Vital Signs Reviewed: Yes - Physical Exam Appears: Positive for: Well, Non-toxic, No Acute Distress Skin: Positive for: Normal Color. Negative for: Rash Eye Exam: Positive for: Normal appearance Cardiovascular/Chest: Positive for: Regular Rate, Rhythm Respiratory: Positive for: Normal Breath Sounds. Negative for: Wheezing, Respiratory Distress Extremity: Positive for: Normal ROM Neurologic/Psych: Positive for: Alert, Oriented, Gait (steady) - ECG O2 Sat by Pulse Oximetry: 97 Pulse Ox Interpretation: Normal Medical Decision Making Medical Decision Makin52 y/o old with history of seizures Plan: PO keppra 500 mg Patient tolerated medication, he is noted to be ambulatory with steady gait, stable for discharge. Disposition - Clinical Impression Clinical Impression: Seizure disorder - Patient ED Disposition Is Patient to be Admitted: No - Disposition Referrals: formerly [facility] [Outside] Disposition: Routine/Home Disposition Time: 17:43 Condition: STABLE Instructions: Seizures, Adult (DC)
[2018-03-15 17:43] VITALS: O2SAT 97
[2018-03-15 17:47] VITALS: BP 116/74; PULSE 83; RESP 16; TEMP 97.4
== END 2018-03-15 18:08 | disposition home or self-care (01) ==
LOC: H.ER 15:08
DX: G40.909 Epilepsy, unspecified, not intractable, without status epilepticus (principal)

== ENCOUNTER 2018-03-15 19:46 | Emergency (ER) | payer MEDICAID ==
[2018-03-15 19:46] VITALS: BMI 24.0
[2018-03-15 19:58] VITALS: BP 121/70; PULSE 90; RESP 18; TEMP 98.4; O2SAT 99
--- NOTE | 2018-03-15 20:09 | ED PDOC ---
HPI: General Adult Time Seen by Provider: 03/15/18 20:04 Chief Complaint (Nursing): Seizure Chief Complaint (Provider): seizures History Per: Patient, EMS Additional Complaint(s): 52 y/o male presents to ED with ambulance requesting a room with a TV. Patient was seen earlier and was given keppra dose. Past Medical History Reviewed: Historical Data, Nursing Documentation, Vital Signs Vital Signs: Last Vital Signs Temp 98.4 F 03/15/18 19:52 Pulse 90 03/15/18 19:52 Resp 18 03/15/18 19:52 BP 121/70 03/15/18 19:52 Pulse Ox 99 03/15/18 20:09 - Medical History PMH: Anemia, Anxiety, Back Problems (herniated disc), Deep Vein Thrombosis, Fractures (rib, left shoulder, left hand 5th digit, humerus), Gastritis, Gall Bladder Disease (Cholelithiasis), Pancreatitis, Seizures, Chronic Pain (left shoulder) Denies: CHF, HIV, Hypercholesterolemia, Chronic Kidney Disease, Sexually Transmitted Disease - Surgical History Surgical History: Endoscopy - Family History Family History: States: No Known Family Hx - Living Arrangements Living Arrangements: With Family - Social History Current smoker - smoking cessation education provided: Yes Alcohol: > 2 Drinks/Day - Home Medications Home Medications: Ambulatory Orders Medication Instructions Recorded Lactulose [Enulose] 20 gm PO BID #40 udc 03/05/18 Pantoprazole [Protonix EC Tab] 40 mg PO DAILY #30 ect 03/05/18 Amoxicillin/Clavulanate [Augmentin 1 tab PO BID #14 tab 03/11/18 875 MG-125 MG] levETIRAcetam [Keppra] 500 mg PO Q12H #60 tab 03/13/18 - Allergies Allergies/Adverse Reactions: Allergies Allergy/AdvReac Type Severity Reaction Status Date / Time aspirin Allergy NAUSEA Verified 03/15/18 19:52 ibuprofen [From Motrin] Allergy NAUSEA Verified 03/15/18 19:52 naproxen Allergy RASH Verified 03/15/18 19:52 NSAIDS (Non-Steroidal Allergy NAUSEA Verified 03/15/18 19:52 Anti-Inflamma Review of Systems ROS Statement: Except As Marked, All Systems Reviewed And Found Negative Neurological: Positive for: Seizures Psych: Positive for: Other (etoh) Physical Exam - Reviewed Nursing Documentation Reviewed: Yes Vital Signs Reviewed: Yes - Physical Exam Appears: Positive for: Well, Non-toxic, No Acute Distress Skin: Positive for: Normal Color. Negative for: Rash Eye Exam: Positive for: Normal appearance Cardiovascular/Chest: Positive for: Regular Rate, Rhythm Respiratory: Positive for: Normal Breath Sounds. Negative for: Wheezing, Respiratory Distress Extremity: Positive for: Normal ROM Neurologic/Psych: Positive for: Alert, Oriented, Gait (steady) - ECG O2 Sat by Pulse Oximetry: 99 Pulse Ox Interpretation: Normal Medical Decision Making Medical Decision Makin52 year old male with alcohol abuse and seizure history Patient has steady gait, he is awake and alert x 3. He is stable for discharge. Disposition - Clinical Impression Clinical Impression: Seizure disorder - Patient ED Disposition Is Patient to be Admitted: No - Disposition Referrals: [facility] [Outside] Disposition: Routine/Home Disposition Time: 20:04 Condition: STABLE Instructions: Seizures, Adult (DC) Forms: [employer] (American)
== END 2018-03-15 20:38 | disposition home or self-care (01) ==
LOC: H.ER 19:46
DX: G40.909 Epilepsy, unspecified, not intractable, without status epilepticus (principal)

== ENCOUNTER 2018-03-15 20:51 | Emergency (ER) | payer MEDICAID ==
[2018-03-15 20:58] VITALS: BMI 23.7
[2018-03-15 21:02] VITALS: O2SAT 99
[2018-03-15 21:27] LABS: VENOUS BLOOD GAS BASE EXCESS 0.2 mmol/L (0.0-2.0); VENOUS BLOOD GAS PCO2 38 mmHg (40-60); VENOUS BLOOD GAS PO2 46 mm/Hg (30-55); VENOUS BLOOD PH 7.42 (7.32-7.43)
[2018-03-15 21:38] LABS: BASO # 0.1 K/uL (0.0-0.2); BASO % 0.9 % (0.0-2.0); EOS # 0.4 K/uL (0.0-0.7); EOS % 7.9 % (0.0-4.0); HEMOGLOBIN 9.9 g/dL (12.0-18.0); LYMPH # 1.2 K/uL (1.0-4.3); LYMPH % 21.1 % (20.0-40.0); MEAN CELL VOLUME 85.8 fl (80.0-94.0); MEAN CORPUSCULAR HEMOGLOBIN 28.3 pg (27.0-31.0); MEAN PLATELET VOLUME 6.9 fl (7.2-11.7); MONO # 0.4 K/uL (0.0-0.8); MONO % 8.1 % (0.0-10.0); NEUT # 3.4 K/uL (1.8-7.0); RBC 3.48 Mil/uL (4.40-5.90); RED CELL DISTRIBUTION WIDTH 19.4 % (11.5-14.5); WHITE BLOOD COUNT 5.5 K/uL (4.8-10.8)
[2018-03-15 21:57] LABS: BLOOD UREA NITROGEN 16 mg/dl (9-20); CALCIUM 8.4 mg/dL (8.4-10.2); GFR NON-AFRICAN AMERICAN > 60
--- NOTE | 2018-03-15 23:20 | ED PDOC ---
HPI: Trauma/Fall - HPI Time Seen by Provider: 03/15/18 20:57 Chief Complaint (Nursing): Trauma History Per: Patient, Other (Staff) History/Exam Limitations: intoxication Onset/Duration Of Symptoms: Mins Additional Complaint(s): Hx of seizure disorder, alcohol abuse presenting with fall, patient was discharged from the ER after supposed "Seizure", patient was walking without his walker and fell in the hallway, striking his head. Afterwards, patient asked for food and to lie down. Patient was seen by staff ambulatory after the fall. Past Medical History Reviewed: Historical Data, Nursing Documentation, Vital Signs Vital Signs: Last Vital Signs Temp 98.0 F 03/16/18 00:10 Pulse 88 03/16/18 00:10 Resp 14 03/16/18 00:10 BP 118/68 03/16/18 00:10 Pulse Ox 99 03/16/18 00:10 - Medical History PMH: Anemia, Anxiety, Back Problems (herniated disc), Deep Vein Thrombosis, Fractures (rib, left shoulder, left hand 5th digit, humerus), Gastritis, Gall Bladder Disease (Cholelithiasis), Pancreatitis, Seizures, Chronic Pain (left shoulder) Denies: CHF, HIV, Hypercholesterolemia, Chronic Kidney Disease, Sexually Transmitted Disease - Surgical History Surgical History: Endoscopy - Family History Family History: States: Unknown Family Hx - Immunization History Hx Tetanus Toxoid Vaccination: Yes Hx Influenza Vaccination: Yes Hx Pneumococcal Vaccination: Yes - Home Medications Home Medications: Ambulatory Orders Medication Instructions Recorded RX: Lactulose [Enulose] 20 gm PO BID #40 udc 03/05/18 RX: Pantoprazole [Protonix EC Tab] 40 mg PO DAILY #30 ect 03/05/18 Amoxicillin/Clavulanate [Augmentin 1 tab PO BID #14 tab 03/11/18 875 MG-125 MG] RX: levETIRAcetam [Keppra] 500 mg PO Q12H #60 tab 03/13/18 - Allergies Allergies/Adverse Reactions: Allergies Allergy/AdvReac Type Severity Reaction Status Date / Time aspirin Allergy NAUSEA Verified 03/15/18 20:57 ibuprofen [From Motrin] Allergy NAUSEA Verified 03/15/18 20:57 naproxen Allergy RASH Verified 03/15/18 20:57 NSAIDS (Non-Steroidal Allergy NAUSEA Verified 03/15/18 20:57 Anti-Inflamma Review of Systems ROS Statement: Except As Marked, All Systems Reviewed And Found Negative Physical Exam - Reviewed Nursing Documentation Reviewed: Yes Vital Signs Reviewed: Yes - Physical Exam Appears: Positive for: Non-toxic, No Acute Distress. Negative for: Well (Intoxicated appearing, Cachectic ) Head Exam: Positive for: ATRAUMATIC, NORMAL INSPECTION, NORMOCEPHALIC Skin: Positive for: Normal Color, Warm, DRY Eye Exam: Positive for: EOMI, Normal appearance, PERRL ENT: Positive for: Normal ENT Inspection Neck: Positive for: Normal, Painless ROM Cardiovascular/Chest: Positive for: Regular Rate, Rhythm Respiratory: Positive for: CNT, Normal Breath Sounds Gastrointestinal/Abdominal: Positive for: Normal Exam, Soft. 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 Negative for: Motor/Sensory Deficits - Laboratory Results Result Diagrams: 03/15/18 21:27 03/15/18 21:27 - ECG O2 Sat by Pulse Oximetry: 99 Pulse Ox Interpretation: Normal Medical Decision Making Medical Decision MakinPM Patient was brought back to Psych Room after fall with head injury --Patient currently in no acute distress, no signs of obvious external injury --Patient has negative CT, labs wnl --Patient to sober up in ER --Once more steady, will be discharged 0100 --Patient stable for discharge Disposition - Clinical Impression Clinical Impression: Head injury - Disposition Referrals: [facility] [Outside] Disposition: Routine/Home Disposition Time: 01:00 Condition: STABLE Instructions: Closed Head Injury (DC), Alcohol Abuse and Alcoholism (DC) Forms: [employer] (Maltese)
[2018-03-16 00:11] VITALS: BP 118/68; PULSE 88; RESP 14; TEMP 98
--- NOTE | 2018-03-16 10:43 | CT ---
Date of service: 03/15/2018 PROCEDURE: CT HEAD WITHOUT CONTRAST. HISTORY: s/p fall COMPARISON: 03/02/2018 TECHNIQUE: Axial computed tomography images were obtained through the head/brain without intravenous contrast. Radiation dose: Total exam DLP = 936 mGy-cm. This CT exam was performed using one or more of the following dose reduction techniques: Automated exposure control, adjustment of the mA and/or kV according to patient size, and/or use of iterative reconstruction technique. FINDINGS: HEMORRHAGE: No intracranial hemorrhage. BRAIN: No mass effect or edema. Generalized cerebral atrophy-similar. Periventricular (frontal and posterior) deep white matter chronic appearing microvascular ischemic changes.-all similar VENTRICLES: Unremarkable. No hydrocephalus. CALVARIUM: Unremarkable. PARANASAL SINUSES: Extensive inflammatory changes. Concomitant maxillary sinus retention cyst and/or polyps-retention cyst favored. From a trang changes in the sphenoid ethmoid and maxillary sinuses. MASTOID AIR CELLS: One of the more posterior inferior right mastoid air cells this opacify this is unchanged-and some of the left mastoid air cells appear more opacified than before findings are compatible with mild mastoid effusion OTHER FINDINGS: None. IMPRESSION: No interval calvarial fracture. Chronic appearing cerebral atrophy and chronic appearing microvascular ischemic changes. No interval changes here appreciated. No interval hemorrhage or mass effect. Interval progressive paranasal and mastoid inflammatory changes-as above. Concordant results (preliminary interpretation) provided by [facility].
== END 2018-03-16 00:25 | disposition home or self-care (01) ==
LOC: H.ER 20:51
DX: F10.10 Alcohol abuse, uncomplicated (principal); S09.90XA Unspecified injury of head, initial encounter; W19.XXXA Unspecified fall, initial encounter; Y92.89 Other specified places as the place of occurrence of the external cause

== ENCOUNTER 2018-03-16 02:09 | Emergency (ER) | payer MEDICAID ==
[2018-03-16 02:09] VITALS: BMI 23.7
[2018-03-16 02:20] VITALS: BP 126/50; PULSE 87; RESP 17; TEMP 98.4; O2SAT 100
== END 2018-03-16 05:51 | disposition home or self-care (01) ==
LOC: H.ER 02:09
DX: F10.129 Alcohol abuse with intoxication, unspecified (principal)

== ENCOUNTER 2018-03-16 11:01 | Emergency (ER) | payer MEDICAID ==
[2018-03-16 11:05] VITALS: BMI 24.0
--- NOTE | 2018-03-16 11:57 | ED PDOC ---
HPI: General Adult Time Seen by Provider: 03/16/18 11:29 Chief Complaint (Nursing): Alcohol Ingestion History Per: Patient (states he had a seizure earlier and hit his head. Patient was brought by EMS with another homeless individual known for alcohol abuse. They were both sitting on the sidewalk. He denies use o alcohol) Past Medical History Reviewed: Historical Data, Nursing Documentation, Vital Signs Vital Signs: Last Vital Signs Temp 99.3 F 03/16/18 11:05 Pulse 117 H 03/16/18 11:05 Resp 17 03/16/18 11:05 BP 122/64 03/16/18 11:05 Pulse Ox 96 03/16/18 11:57 - Medical History PMH: Anemia, Anxiety, Back Problems (herniated disc), Deep Vein Thrombosis, Fractures (rib, left shoulder, left hand 5th digit, humerus), Gastritis, Gall Bladder Disease (Cholelithiasis), Pancreatitis, Seizures, Chronic Pain (left shoulder) Denies: CHF, HIV, Hypercholesterolemia, Chronic Kidney Disease, Sexually Transmitted Disease - Surgical History Surgical History: Endoscopy - Family History Family History: States: Unknown Family Hx - Immunization History Hx Tetanus Toxoid Vaccination: Yes Hx Influenza Vaccination: Yes Hx Pneumococcal Vaccination: Yes - Home Medications Home Medications: Ambulatory Orders Medication Instructions Recorded RX: Lactulose [Enulose] 20 gm PO BID #40 udc 03/05/18 RX: Pantoprazole [Protonix EC Tab] 40 mg PO DAILY #30 ect 03/05/18 Amoxicillin/Clavulanate [Augmentin 1 tab PO BID #14 tab 03/11/18 875 MG-125 MG] RX: levETIRAcetam [Keppra] 500 mg PO Q12H #60 tab 03/13/18 - Allergies Allergies/Adverse Reactions: Allergies Allergy/AdvReac Type Severity Reaction Status Date / Time aspirin Allergy NAUSEA Verified 03/15/18 20:57 ibuprofen [From Motrin] Allergy NAUSEA Verified 03/15/18 20:57 naproxen Allergy RASH Verified 03/15/18 20:57 NSAIDS (Non-Steroidal Allergy NAUSEA Verified 03/15/18 20:57 Anti-Inflamma Review of Systems ROS Statement: Except As Marked, All Systems Reviewed And Found Negative Physical Exam - Reviewed Nursing Documentation Reviewed: Yes Vital Signs Reviewed: Yes - Physical Exam Appears: Positive for: Well, Non-toxic, No Acute Distress Head Exam: Positive for: ATRAUMATIC, NORMAL INSPECTION, NORMOCEPHALIC Skin: Positive for: Normal Color Eye Exam: Positive for: EOMI ENT: Positive for: Normal ENT Inspection Neck: Positive for: Painless ROM Cardiovascular/Chest: Positive for: Regular Rate, Rhythm Respiratory: Positive for: CNT, Normal Breath Sounds Gastrointestinal/Abdominal: Positive for: Normal Exam Back: Positive for: Normal Inspection Extremity: Positive for: Normal ROM Neurologic/Psych: Positive for: Alert - ECG O2 Sat by Pulse Oximetry: 96 Disposition - Clinical Impression Clinical Impression: Seizure disorder - Patient ED Disposition Is Patient to be Admitted: No Doctor Will See Patient In The: Office Counseled Patient/Family Regarding: Diagnosis, Need For Followup - Disposition Disposition: Routine/Home Disposition Time: 14:11 Condition: STABLE Instructions: Epilepsy in Adults Forms: [facility] (Nepali) - POA Present On Arrival: None
[2018-03-16 14:29] VITALS: BP 125/76; PULSE 78; RESP 18; TEMP 98.4; O2SAT 99
== END 2018-03-16 14:28 | disposition home or self-care (01) ==
LOC: H.ER 11:01
DX: F10.129 Alcohol abuse with intoxication, unspecified (principal)

== ENCOUNTER 2018-03-16 16:51 | Emergency (ER) | payer MEDICAID ==
[2018-03-16 16:51] VITALS: BMI 24.0
[2018-03-16 16:59] VITALS: TEMP 98.4; O2SAT 94
--- NOTE | 2018-03-16 17:35 | ED PDOC ---
HPI: Seizure Time Seen by Provider: 03/16/18 17:08 Chief Complaint (Nursing): Seizure Chief Complaint (Provider): Seizure History Per: Patient History/Exam Limitations: no limitations Additional Complaint(s): 52 year old male with a past medical history of frequent visits to ED for epilepsy and alcohol abuse, presents with complaints of a self-reported seizure, just prior to arrival. Patient denies taking his Keppra dose yet today - patient states his insurance will not cover another refill until 03/19/18. Of note, patient was seen yesterday in ED three times and twice today for similar complaints. Patient is requesting a food tray at this time. PMD: [facility] Past Medical History Vital Signs: Last Vital Signs Temp 98.4 F 03/16/18 16:54 Pulse 104 H 03/16/18 16:54 Resp 16 03/16/18 16:54 BP 122/65 03/16/18 16:54 Pulse Ox 94 L 03/16/18 16:54 - Medical History PMH: Anemia, Anxiety, Back Problems (herniated disc), Deep Vein Thrombosis, Fractures (rib, left shoulder, left hand 5th digit, humerus), Gastritis, Gall Bladder Disease (Cholelithiasis), Pancreatitis, Seizures, Chronic Pain (left shoulder) - Surgical History Surgical History: Endoscopy - Family History Family History: States: Unknown Family Hx - Social History Alcohol: > 2 Drinks/Day - Home Medications Home Medications: Ambulatory Orders Medication Instructions Recorded RX: Lactulose [Enulose] 20 gm PO BID #40 udc 03/05/18 RX: Pantoprazole [Protonix EC Tab] 40 mg PO DAILY #30 ect 03/05/18 Amoxicillin/Clavulanate [Augmentin 1 tab PO BID #14 tab 03/11/18 875 MG-125 MG] RX: levETIRAcetam [Keppra] 500 mg PO Q12H #60 tab 03/13/18 - Allergies Allergies/Adverse Reactions: Allergies Allergy/AdvReac Type Severity Reaction Status Date / Time aspirin Allergy NAUSEA Verified 03/17/18 02:52 ibuprofen [From Motrin] Allergy NAUSEA Verified 03/17/18 02:52 naproxen Allergy RASH Verified 03/17/18 02:52 NSAIDS (Non-Steroidal Allergy NAUSEA Verified 03/17/18 02:52 Anti-Inflamma Review of Systems ROS Statement: Except As Marked, All Systems Reviewed And Found Negative Neurological: Positive for: Seizures Physical Exam - Reviewed Nursing Documentation Reviewed: Yes Vital Signs Reviewed: Yes - Physical Exam Comments: GENERAL APPEARANCE: Patient is alert and oriented x 3, in no acute distress. Resting comfortably. Odor of alcohol on breath. SKIN: Warm, dry; (-) cyanosis ENMT: Mucous membranes moist. Airway patent: (-) stridor. NECK: Supple, FROM HEART AND CARDIOVASCULAR: (-) irregularity CHEST AND RESPIRATORY: (-) rales, (-) rhonchi, (-) wheezes; breath sounds equal. Respirations even and non-labored. Speaking in full sentences. ABDOMEN: Soft, (-) distention, (-) tenderness, (-) guarding. NEURO AND PSYCH: Mental status as above. Affect: Calm. (-) facial asymmetry. tumbler plater II-XII grossly intact. Pupils equal and reactive. EOMI and painless. Speech: clear. Gait: steady with walker. - ECG O2 Sat by Pulse Oximetry: 94 (RA) Pulse Ox Interpretation: Normal Medical Decision Making Medical Decision Making: Initial Impression: Seizure disorder, malingering, alcohol ingestion/abuse Initial Plan: --Accucheck --Keppra 500mg PO --Re-evaluation Accucheck: 119 1830 Patient sleeping comfortably on re-evaluation. No distress noted. 1920 Repeat HR: 89 O2: 95% on RA On re-evaluation, patient reports improvement of symptoms and is requesting discharge. On exam, patient remains AAOx3, in no acute distress. Lungs clear to auscultation, cardiac RRR, repeat neuro exam shows no focal findings. Vitals stable. Lab/Diagnostic results d/w the patient in great detail. Diagnosis of seizure disorder, malingering, alcohol abuse d/w the patient. Based on history, exam and diagnostic results, plan will be for outpatient follow up with clinic. Patient instructed to follow-up with pmd / referral provided / the clinic in 1- 2 days without fail. Return to the emergency room at any time for any new or worsening symptoms. Patient states he fully agrees with and understands discharge instructions. States that he agrees with the plan and disposition. Verbalized and repeated discharge instructions and plan. I have given the patient opportunity to ask any additional questions. Scribe Attestation: Documented by Raghu Salazar, acting as a scribe for Haydee Hayes PA-C. Provider Scribe Attestation: All medical record entries made by the Scribe were at my direction and personally dictated by me. I have reviewed the chart and agree that the record accurately reflects my personal performance of the history, physical exam, medical decision making, and the department course for this patient. I have also personally directed, reviewed, and agree with the discharge Disposition - Clinical Impression Clinical Impression: Seizure disorder, Malingering, Alcohol abuse - Patient ED Disposition Is Patient to be Admitted: No Counseled Patient/Family Regarding: Studies Performed, Diagnosis, Need For Followup - Disposition Referrals: [facility] [Outside] Chanelle Rowe MD [Staff Provider] - Disposition: Routine/Home Disposition Time: 19:21 Condition: STABLE Additional Instructions: The emergency medical care you received today was directed towards the acute presenting symptoms. If you were prescribed any medication, please fill it and give as directed. It may take several days for your symptoms to resolve. Return to the Emergency Department at any time if symptoms worsen, do not improve, or if any other problems arise. Please contact your doctor in 2 days for re-evaluation and follow up / or call one of the physicians/clinics you have been referred to that are listed on the Patient Visit Information form that is included in your discharge packet. Bring any paperwork you were given at discharge with you along with any medications to your follow up visit. Our treatment cannot replace ongoing medical care by a primary care provider (PCP) outside of the emergency department. Instructions: Seizures, Adult (DC) Forms: [employer] (Macedonian) Print Language: SINHALA - POA Present On Arrival: None Results - Lab Results Lab Results: 03/16/18 17:22 POC Glucose (mg/dL) 119 H
[2018-03-16 19:35] VITALS: BP 96/54; PULSE 89; RESP 18
== END 2018-03-16 19:34 | disposition home or self-care (01) ==
LOC: H.ER 16:51
DX: F10.10 Alcohol abuse, uncomplicated (principal); G40.909 Epilepsy, unspecified, not intractable, without status epilepticus; Z76.5 Malingerer [conscious simulation]

== ENCOUNTER 2018-03-17 02:38 | Emergency (ER) | payer MEDICAID ==
[2018-03-17 02:38] VITALS: BMI 24.0
[2018-03-17 02:56] VITALS: BP 130/77; PULSE 90; RESP 16; TEMP 98.6; O2SAT 100
--- NOTE | 2018-03-17 03:33 | ED PDOC ---
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 He denies any fever, chills, chest pain, shortness of breath and has no additional medical complaints. Past Medical History Reviewed: Historical Data, Nursing Documentation, Vital Signs Vital Signs: Last Vital Signs Temp 98.6 F 03/17/18 02:53 Pulse 90 03/17/18 02:53 Resp 16 03/17/18 02:53 BP 130/77 03/17/18 02:53 Pulse Ox 100 03/17/18 02:53 - Medical History PMH: Anemia, Anxiety, Back Problems (herniated disc), Deep Vein Thrombosis, Fractures (rib, left shoulder, left hand 5th digit, humerus), Gastritis, Gall Bladder Disease (Cholelithiasis), Pancreatitis, Seizures, Chronic Pain (left shoulder) Denies: CHF, HIV, Hypercholesterolemia, Chronic Kidney Disease, Sexually Transmitted Disease - Surgical History Surgical History: Endoscopy - Family History Family History: States: Unknown Family Hx - Immunization History Hx Tetanus Toxoid Vaccination: Yes Hx Influenza Vaccination: Yes Hx Pneumococcal Vaccination: Yes - Home Medications Home Medications: Ambulatory Orders Medication Instructions Recorded Lactulose [Enulose] 20 gm PO BID #40 udc 03/05/18 Pantoprazole [Protonix EC Tab] 40 mg PO DAILY #30 ect 03/05/18 Amoxicillin/Clavulanate [Augmentin 1 tab PO BID #14 tab 03/11/18 875 MG-125 MG] levETIRAcetam [Keppra] 500 mg PO Q12H #60 tab 03/13/18 - Allergies Allergies/Adverse Reactions: Allergies Allergy/AdvReac Type Severity Reaction Status Date / Time aspirin Allergy NAUSEA Verified 03/17/18 02:52 ibuprofen [From Motrin] Allergy NAUSEA Verified 03/17/18 02:52 naproxen Allergy RASH Verified 03/17/18 02:52 NSAIDS (Non-Steroidal Allergy NAUSEA Verified 03/17/18 02:52 Anti-Inflamma Review of Systems ROS Statement: Except As Marked, All Systems Reviewed And Found Negative Physical Exam - Reviewed Nursing Documentation Reviewed: Yes Vital Signs Reviewed: Yes - Physical Exam Appears: Positive for: No Acute Distress (intoxicated; cachectic) Head Exam: Positive for: NORMAL INSPECTION, NORMOCEPHALIC Skin: Positive for: Normal Color, Warm, DRY Eye Exam: Positive for: Normal appearance Neck: Positive for: Supple Cardiovascular/Chest: Positive for: Regular Rate, Rhythm. Negative for: Murmur Respiratory: Positive for: Normal Breath Sounds. Negative for: Respiratory Distress Gastrointestinal/Abdominal: Positive for: Normal Exam, Soft Back: Positive for: Normal Inspection Extremity: Positive for: Normal ROM. Negative for: Pedal Edema Neurologic/Psych: Positive for: Alert, Oriented. Negative for: Motor/Sensory Deficits - ECG O2 Sat by Pulse Oximetry: 100 (RA) Pulse Ox Interpretation: Normal Medical Decision Making Medical Decision Making: Assessment: 52yo male, presents to ER reporting a seizure Patient well known to staff and provider for multiple visits regarding seizure Plan: * Patient to be observed in ER. 05:00 Patient awake, alert and oriented x 3, with steady gait. Patient rested comfortably in ER and no seizure like activity noted during ER stay. Patient stable for discharge home, instructed to f/u with [facility] in 2-3 days. Scribe Attestation: Documented by Kajal Chakraborty, acting as a scribe for Murphy Chiu MD. Provider Scribe Attestation: All medical record entries made by the Scribe were at my direction and personally dictated by me. I have reviewed the chart and agree that the record accurately reflects my personal performance of the history, physical exam, medical decision making, and the department course for this patient. I have also personally directed, reviewed, and agree with the discharge instructions and disposition. Disposition - Clinical Impression Clinical Impression: Malingering - Disposition Disposition: Routine/Home Disposition Time: 05:03 Condition: STABLE Instructions: Seizures Forms: [employer] (Ivorian)
== END 2018-03-17 06:20 | disposition home or self-care (01) ==
LOC: H.ER 02:38
DX: Z76.5 Malingerer [conscious simulation] (principal)

== ENCOUNTER 2018-03-17 18:06 | Emergency (ER) | payer MEDICAID ==
[2018-03-17 18:07] VITALS: BMI 24.0
[2018-03-17 18:20] VITALS: BP 119/68; PULSE 95; RESP 16; TEMP 98.3; O2SAT 98
[2018-03-17 19:34] LABS: BASO # 0.1 K/uL (0.0-0.2); BASO % 1.2 % (0.0-2.0); EOS # 0.5 K/uL (0.0-0.7); EOS % 9.1 % (0.0-4.0); HEMOGLOBIN 9.6 g/dL (12.0-18.0); LYMPH # 1.4 K/uL (1.0-4.3); MEAN CELL VOLUME 86.5 fl (80.0-94.0); MEAN CORPUSCULAR HEMOGLOBIN 28.5 pg (27.0-31.0); MEAN PLATELET VOLUME 7.4 fl (7.2-11.7); MONO # 0.5 K/uL (0.0-0.8); MONO % 9.6 % (0.0-10.0); NEUT % 54.1 % (50.0-75.0); NRBC % 0.2 % (0.0-0.0); RBC 3.38 Mil/uL (4.40-5.90); RED CELL DISTRIBUTION WIDTH 18.7 % (11.5-14.5); WHITE BLOOD COUNT 5.5 K/uL (4.8-10.8)
[2018-03-17 19:46] LABS: ALB/GLOB RATIO 0.7 (1.0-2.1); ALBUMIN 3.3 g/dL (3.5-5.0); ALT/SGPT 52 U/L (21-72); AST/SGOT 133 U/L (17-59); BLOOD UREA NITROGEN 13 mg/dl (9-20); GFR NON-AFRICAN AMERICAN > 60
--- NOTE | 2018-03-17 19:50 | ED PDOC ---
HPI: Seizure Time Seen by Provider: 03/17/18 18:20 Chief Complaint (Nursing): Seizure Chief Complaint (Provider): "I had a seizure" History Per: Patient History/Exam Limitations: no limitations Additional Complaint(s): 52 yo male well known to Er with history of UGIB, seizure disorder and alcohol abuse presents for evaluation after having a seizure. Pt states he has not been taking Keppra and denies drinking alcohol today. Pt was seen sitting in waiting room throughout the day. Past Medical History Reviewed: Historical Data, Nursing Documentation, Vital Signs Vital Signs: Last Vital Signs Temp 98.3 F 03/17/18 18:17 Pulse 95 H 03/17/18 18:17 Resp 16 03/17/18 18:17 BP 119/68 03/17/18 18:17 Pulse Ox 98 03/17/18 18:17 - Medical History PMH: Anemia, Anxiety, Back Problems (herniated disc), Deep Vein Thrombosis, Fractures (rib, left shoulder, left hand 5th digit, humerus), Gastritis, Gall Bladder Disease (Cholelithiasis), Pancreatitis, Seizures, Chronic Pain (left shoulder) Denies: CHF, HIV, Hypercholesterolemia, Chronic Kidney Disease, Sexually Transmitted Disease - Surgical History Surgical History: Endoscopy - Family History Family History: States: Unknown Family Hx - Immunization History Hx Tetanus Toxoid Vaccination: Yes Hx Influenza Vaccination: Yes Hx Pneumococcal Vaccination: Yes - Home Medications Home Medications: Ambulatory Orders Medication Instructions Recorded RX: Lactulose [Enulose] 20 gm PO BID #40 udc 03/05/18 RX: Pantoprazole [Protonix EC Tab] 40 mg PO DAILY #30 ect 03/05/18 Amoxicillin/Clavulanate [Augmentin 1 tab PO BID #14 tab 03/11/18 875 MG-125 MG] RX: levETIRAcetam [Keppra] 500 mg PO Q12H #60 tab 03/13/18 - Allergies Allergies/Adverse Reactions: Allergies Allergy/AdvReac Type Severity Reaction Status Date / Time aspirin Allergy NAUSEA Verified 03/17/18 02:52 ibuprofen [From Motrin] Allergy NAUSEA Verified 03/17/18 02:52 naproxen Allergy RASH Verified 03/17/18 02:52 NSAIDS (Non-Steroidal Allergy NAUSEA Verified 03/17/18 02:52 Anti-Inflamma Review of Systems ROS Statement: Except As Marked, All Systems Reviewed And Found Negative Constitutional: Negative for: Fever, Chills Gastrointestinal: Negative for: Nausea, Vomiting, Abdominal Pain Neurological: Positive for: Seizures. Negative for: Altered Mental Status, Headache Physical Exam - Reviewed Nursing Documentation Reviewed: Yes Vital Signs Reviewed: Yes - Physical Exam Appears: Positive for: Well, Non-toxic, No Acute Distress Head Exam: Positive for: ATRAUMATIC, NORMAL INSPECTION, NORMOCEPHALIC Skin: Positive for: Normal Color, Warm, DRY Eye Exam: Positive for: Normal appearance ENT: Positive for: Normal ENT Inspection Neck: Positive for: Normal, Painless ROM Cardiovascular/Chest: Positive for: Regular Rate, Rhythm Respiratory: Positive for: CNT, Normal Breath Sounds Gastrointestinal/Abdominal: Positive for: Normal Exam, Soft. Negative for: Tenderness Back: Positive for: Normal Inspection Extremity: Positive for: Normal ROM Neurologic/Psych: Positive for: Alert, Oriented. Negative for: Gait - Laboratory Results Result Diagrams: 03/17/18 18:50 03/17/18 18:50 - ECG O2 Sat by Pulse Oximetry: 98 Medical Decision Making Medical Decision Making: Endorsed pending sobriety. Disposition - Clinical Impression Clinical Impression: Alcohol abuse - Patient ED Disposition Is Patient to be Admitted: Transfer of Care - Disposition Disposition: Transfer of Care Disposition Time: 20:00 Condition: FAIR Instructions: Alcohol Abuse and Alcoholism (DC), Effects of Alcohol on Your Hea lt
--- NOTE | 2018-03-17 20:58 | ED PDOC ---
- Laboratory Results Result Diagrams: 03/17/18 18:50 03/17/18 18:50 - ECG O2 Sat by Pulse Oximetry: 98 - Progress ED Course And Treament: PATIENT NOTED WITH PROGRESSIVE CLINICAL SOBRIETY. REQUEST MEAL. Disposition - Clinical Impression Clinical Impression: Alcohol abuse - POA Present On Arrival: None - Disposition Disposition: Routine/Home Disposition Time: 21:30 Condition: FAIR Instructions: Effects of Alcohol on Your Health, Alcohol Abuse and Alcoholism (DC)
== END 2018-03-17 21:46 | disposition home or self-care (01) ==
LOC: H.ER 18:06
DX: F10.129 Alcohol abuse with intoxication, unspecified (principal); G40.909 Epilepsy, unspecified, not intractable, without status epilepticus

== ENCOUNTER 2018-03-18 18:04 | Emergency (ER) | payer MEDICAID ==
[2018-03-18 18:04] VITALS: BMI 24.0
[2018-03-18 18:44] VITALS: TEMP 98.8
--- NOTE | 2018-03-18 23:24 | ED PDOC ---
HPI: Seizure Time Seen by Provider: 03/18/18 20:41 Chief Complaint (Nursing): Seizure Past Medical History Vital Signs: Last Vital Signs Temp 98.8 F 03/18/18 18:40 Pulse 91 H 03/18/18 18:40 Resp 19 03/18/18 18:40 BP 117/68 03/18/18 18:40 Pulse Ox 98 03/18/18 18:40 - Medical History PMH: Anemia, Anxiety, Back Problems (herniated disc), Deep Vein Thrombosis, Fractures (rib, left shoulder, left hand 5th digit, humerus), Gastritis, Gall Bladder Disease (Cholelithiasis), Pancreatitis, Seizures, Chronic Pain (left shoulder) Denies: CHF, HIV, Hypercholesterolemia, Chronic Kidney Disease, Sexually Transmitted Disease - Surgical History Surgical History: Endoscopy - Family History Family History: States: Unknown Family Hx - Immunization History Hx Tetanus Toxoid Vaccination: Yes Hx Influenza Vaccination: Yes Hx Pneumococcal Vaccination: Yes - Home Medications Home Medications: Ambulatory Orders Medication Instructions Recorded Lactulose [Enulose] 20 gm PO BID #40 udc 03/05/18 Pantoprazole [Protonix EC Tab] 40 mg PO DAILY #30 ect 03/05/18 Amoxicillin/Clavulanate [Augmentin 1 tab PO BID #14 tab 03/11/18 875 MG-125 MG] levETIRAcetam [Keppra] 500 mg PO Q12H #60 tab 03/13/18 - Allergies Allergies/Adverse Reactions: Allergies Allergy/AdvReac Type Severity Reaction Status Date / Time aspirin Allergy NAUSEA Verified 03/17/18 02:52 ibuprofen [From Motrin] Allergy NAUSEA Verified 03/17/18 02:52 naproxen Allergy RASH Verified 03/17/18 02:52 NSAIDS (Non-Steroidal Allergy NAUSEA Verified 03/17/18 02:52 Anti-Inflamma - ECG O2 Sat by Pulse Oximetry: 98 Disposition - Clinical Impression Clinical Impression: Malingerer [conscious simulation] - Patient ED Disposition Is Patient to be Admitted: No Counseled Patient/Family Regarding: Diagnosis, Need For Followup - Disposition Disposition: Routine/Home Disposition Time: 23:23 Condition: STABLE Instructions: Seizures, Adult (DC)
[2018-03-18 23:38] VITALS: BP 108/62; PULSE 65; RESP 18; O2SAT 100
== END 2018-03-18 23:43 | disposition home or self-care (01) ==
LOC: H.ER 18:04
DX: Z76.5 Malingerer [conscious simulation] (principal)

== ENCOUNTER 2018-03-19 16:18 | Emergency (ER) | payer MEDICAID ==
[2018-03-19 16:18] VITALS: BMI 24.0
[2018-03-19 17:05] VITALS: RESP 18; O2SAT 99
--- NOTE | 2018-03-19 17:31 | ED PDOC ---
HPI: Seizure Time Seen by Provider: 03/19/18 17:21 Chief Complaint (Nursing): Seizure Chief Complaint (Provider): Seizure History Per: Patient History/Exam Limitations: no limitations Additional Complaint(s): Shreyas Sepulveda is a 52 year old male with a past medical history of frequent visits to ED for epilepsy and alcohol abuse, who presents with complaints of a self-reported seizure, just prior to arrival. Patient offers no other medical complaints at this time. Patient reports that he did not take his Keppra dose today because the pharmacy will not let him refill his Keppra Rx until tomorrow. Patient is requesting a food tray at this time. Of note, patient was seen in ED twice yesterday for similar complaints. PMD: [facility] Past Medical History Reviewed: Historical Data, Nursing Documentation, Vital Signs Vital Signs: Last Vital Signs Temp 98.9 F 03/19/18 17:03 Pulse 88 03/19/18 17:03 Resp 18 03/19/18 17:03 BP 124/68 03/19/18 17:03 Pulse Ox 99 03/19/18 17:03 - Medical History PMH: Anemia, Anxiety, Back Problems (herniated disc), Deep Vein Thrombosis, Fractures (rib, left shoulder, left hand 5th digit, humerus), Gastritis, Gall Bladder Disease (Cholelithiasis), Pancreatitis, Seizures, Chronic Pain (left shoulder) - Surgical History Surgical History: Endoscopy - Family History Family History: States: Unknown Family Hx - Social History Current smoker - smoking cessation education provided: Yes Alcohol: > 2 Drinks/Day - Home Medications Home Medications: Ambulatory Orders Medication Instructions Recorded Lactulose [Enulose] 20 gm PO BID #40 udc 03/05/18 Pantoprazole [Protonix EC Tab] 40 mg PO DAILY #30 ect 03/05/18 Amoxicillin/Clavulanate [Augmentin 1 tab PO BID #14 tab 03/11/18 875 MG-125 MG] levETIRAcetam [Keppra] 500 mg PO Q12H #60 tab 03/13/18 - Allergies Allergies/Adverse Reactions: Allergies Allergy/AdvReac Type Severity Reaction Status Date / Time aspirin Allergy NAUSEA Verified 03/19/18 17:03 ibuprofen [From Motrin] Allergy NAUSEA Verified 03/19/18 17:03 naproxen Allergy RASH Verified 03/19/18 17:03 NSAIDS (Non-Steroidal Allergy NAUSEA Verified 03/19/18 17:03 Anti-Inflamma Review of Systems ROS Statement: Except As Marked, All Systems Reviewed And Found Negative Neurological: Positive for: Seizures Physical Exam - Reviewed Nursing Documentation Reviewed: Yes Vital Signs Reviewed: Yes - Physical Exam Comments: GENERAL APPEARANCE: Patient is alert and oriented x 3, in no acute distress. Resting comfortably. SKIN: Warm, dry; (-) cyanosis ENMT: Mucous membranes moist. Airway patent: (-) stridor. NECK: Supple, FROM HEART AND CARDIOVASCULAR: (-) irregularity CHEST AND RESPIRATORY: (-) rales, (-) rhonchi, (-) wheezes; breath sounds equal. Respirations even and non-labored. Speaking in full sentences. ABDOMEN: Soft, (-) distention, (-) tenderness, (-) guarding. NEURO AND PSYCH: Mental status as above. Affect: Calm. (-) facial asymmetry. 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 Pupils equal and reactive. EOMI and painless. Speech: clear. Gait: steady with walker. - ECG O2 Sat by Pulse Oximetry: 99 (RA) Pulse Ox Interpretation: Normal Medical Decision Making Medical Decision Making: Initial Impression: Seizure disorder, malingering Initial Plan: --Accucheck --Keppra 500mg PO --Re-evaluation Accucheck: 178 (immediately s/p meal in ED) 1805 Patient requesting discharge so he can smoke a cigarette. Patient tolerated PO in ED without difficulty. On re-evaluation, patient reports improvement of symptoms. On exam, patient remains AAOx3, in no acute distress. Lungs clear to auscultation, cardiac RRR, repeat neuro exam shows no focal findings. Vitals stable. Lab /Diagnostic results d/w the patient in great detail. Diagnosis of seizure disorder, malingering d/w the patient. Based on history, exam and diagnostic results, plan will be for outpatient follow up. Patient instructed to follow-up with pmd / referral provided / the clinic in 1- 2 days without fail. Return to the emergency room at any time for any new or worsening symptoms. Patient states he fully agrees with and understands discharge instructions. States that he agrees with the plan and disposition. Verbalized and repeated discharge instructions and plan. I have given the patient opportunity to ask any additional questions. Scribe Attestation: Documented by Roxana Wang, acting as a scribe for Haydee Hayes PA-C. Provider Scribe Attestation: All medical record entries made by the Scribe were at my direction and personally dictated by me. I have reviewed the chart and agree that the record accurately reflects my personal performance of the history, physical exam, medical decision making, and the department course for this patient. I have also personally directed, reviewed, and agree with the discharge instructions and disposition. Disposition - Clinical Impression Clinical Impression: Seizure disorder, Malingering - Patient ED Disposition Is Patient to be Admitted: No Counseled Patient/Family Regarding: Studies Performed, Diagnosis, Need For Followup - Disposition Referrals: [facility] [Outside] Disposition: Routine/Home Disposition Time: 18:05 Condition: STABLE Additional Instructions: The emergency medical care you received today was directed at your acute symptoms. If you were prescribed any medication, please fill it and take as directed. It may take several days for your symptoms to resolve. Return to the Emergency Department if your symptoms worsen, do not improve, or if you have any other problems. Please contact your doctor in 2 days for re-evaluation and follow up / or call one of the physicians/clinics you have been referred to that are listed on the Patient Visit Information form that is included in your discharge packet. Bring any paperwork you were given at discharge with you along with any medications you are taking to your follow up visit. Our treatment cannot replace ongoing medical care by a primary care provider (PCP) outside of the emergency department. Instructions: Epilepsy in Adults Forms: [employer] (Hebrew) Print Language: ICELANDIC - POA Present On Arrival: None
[2018-03-19 18:19] VITALS: BP 122/78; PULSE 78; TEMP 98
== END 2018-03-19 18:19 | disposition home or self-care (01) ==
LOC: H.ER 16:18
DX: G40.909 Epilepsy, unspecified, not intractable, without status epilepticus (principal); Z76.5 Malingerer [conscious simulation]; F17.210 Nicotine dependence, cigarettes, uncomplicated; G89.29 Other chronic pain; Z86.718 Personal history of other venous thrombosis and embolism; Z88.6 Allergy status to analgesic agent

== ENCOUNTER 2018-03-20 03:31 | Emergency (ER) | payer MEDICAID ==
[2018-03-20 03:31] VITALS: BMI 24.0
[2018-03-20 04:35] VITALS: O2SAT 98
--- NOTE | 2018-03-20 06:22 | ED PDOC ---
HPI: Trauma/Fall - HPI Time Seen by Provider: 03/20/18 05:12 Chief Complaint (Nursing): Trauma History Per: Patient Additional Complaint(s): Pt. states earlier today he tripped and fell while ambulating using his walker. Currently c/o R sided chest pain. States he fell directly on the R side of his chest. Admits to drinking alcohol. Denies head injury, LOC, N/V. Past Medical History Reviewed: Historical Data, Nursing Documentation, Vital Signs Vital Signs: Last Vital Signs Temp 97.8 F 03/20/18 04:33 Pulse 90 03/20/18 04:33 Resp 16 03/20/18 04:33 BP 117/70 03/20/18 04:33 Pulse Ox 98 03/20/18 04:33 - Medical History PMH: Anemia, Anxiety, Back Problems (herniated disc), Deep Vein Thrombosis, Fractures (rib, left shoulder, left hand 5th digit, humerus), Gastritis, Gall Bladder Disease (Cholelithiasis), Pancreatitis, Seizures, Chronic Pain (left shoulder) Denies: CHF, HIV, Hypercholesterolemia, Chronic Kidney Disease, Sexually Transmitted Disease - Surgical History Surgical History: Endoscopy - Family History Family History: States: No Known Family Hx - Immunization History Hx Tetanus Toxoid Vaccination: Yes Hx Influenza Vaccination: Yes Hx Pneumococcal Vaccination: Yes - Home Medications Home Medications: Ambulatory Orders Medication Instructions Recorded Lactulose [Enulose] 20 gm PO BID #40 udc 03/05/18 Pantoprazole [Protonix EC Tab] 40 mg PO DAILY #30 ect 03/05/18 Amoxicillin/Clavulanate [Augmentin 1 tab PO BID #14 tab 03/11/18 875 MG-125 MG] levETIRAcetam [Keppra] 500 mg PO Q12H #60 tab 03/13/18 - Allergies Allergies/Adverse Reactions: Allergies Allergy/AdvReac Type Severity Reaction Status Date / Time aspirin Allergy NAUSEA Verified 03/20/18 04:35 ibuprofen [From Motrin] Allergy NAUSEA Verified 03/20/18 04:35 naproxen Allergy RASH Verified 03/20/18 04:35 NSAIDS (Non-Steroidal Allergy NAUSEA Verified 03/20/18 04:35 Anti-Inflamma Review of Systems ROS Statement: Except As Marked, All Systems Reviewed And Found Negative Cardiovascular: Positive for: Chest Pain Physical Exam - Physical Exam Appears: Positive for: Well, Non-toxic, No Acute Distress Head Exam: Positive for: ATRAUMATIC, NORMAL INSPECTION, NORMOCEPHALIC Skin: Positive for: Normal Color, Warm. Negative for: Rash Eye Exam: Positive for: Normal appearance. Negative for: Periorbital swelling, Periorbital tenderness ENT: Positive for: Normal ENT Inspection, TM Is/Are (no hemotympanum b/l) Neck: Positive for: Normal, Painless ROM Cardiovascular/Chest: Positive for: Regular Rate, Rhythm, Chest Non Tender (R s ided axillary chest wall tenderness with minimal ecchymosis) Respiratory: Positive for: Normal Breath Sounds. Negative for: Accessory Muscle Use, Respiratory Distress Gastrointestinal/Abdominal: Positive for: Normal Exam (no ecchymosis), Soft. Negative for: Tenderness (to deep palpation including subcostal areas) Back: Positive for: Normal Inspection. Negative for: L CVA Tenderness, R CVA Tenderness, Vertebral Tenderness (including cervical spine) Extremity: Positive for: Normal ROM Neurologic/Psych: Positive for: Alert, Oriented (x3). Negative for: Aphasia, Facial Droop - ECG O2 Sat by Pulse Oximetry: 98 - Progress ED Course And Treament: CT head w/o contrast, CT chest w/o contrast ordered. Disposition - Clinical Impression Clinical Impression: Trauma of chest - Patient ED Disposition Is Patient to be Admitted: Transfer of Care (Dr. Lu continued care pending CT results) - Disposition Disposition Time: 07:07 Condition: STABLE Forms: [facility] (Mozambican)
[2018-03-20] MEDS ORDERED: Lidocaine 5% Patch TD STA (06:23)
--- NOTE | 2018-03-20 09:43 | ED PDOC ---
- ECG O2 Sat by Pulse Oximetry: 98 Medical Decision Making Medical Decision Making: recd on endorsement from Dr Chiu/ STEPHAN Olivier pending imaging and dispo CT brain and CT chest reports reviewed, no bleed, no acute rib fractures, no pneumothorax. Patient slept for several hours, arousable and at baseline. Disposition Counseled Patient/Family Regarding: Studies Performed, Diagnosis - Clinical Impression Clinical Impression: Trauma of chest, Head injury - POA Present On Arrival: Falls Or Trauma - Disposition Disposition: Routine/Home Disposition Time: 09:42 Condition: STABLE Instructions: Closed Head Injury, Contusion (DC) Forms: [employer] (Kyrgyz)
[2018-03-20 09:57] VITALS: BP 116/78; PULSE 86; RESP 19; TEMP 97
--- NOTE | 2018-03-20 11:34 | CT ---
Date of service: 03/20/2018 PROCEDURE: CT HEAD WITHOUT CONTRAST. HISTORY: FALL COMPARISON: CT head dated 03/15/2018. TECHNIQUE: Axial computed tomography images were obtained through the head/brain without intravenous contrast. Radiation dose: Total exam DLP = 797 mGy-cm. This CT exam was performed using one or more of the following dose reduction techniques: Automated exposure control, adjustment of the mA and/or kV according to patient size, and/or use of iterative reconstruction technique. FINDINGS: HEMORRHAGE: No intracranial hemorrhage. BRAIN: No mass effect or edema. Atrophy. Chronic microvascular ischemic changes. VENTRICLES: Unremarkable. No hydrocephalus. CALVARIUM: Unremarkable. PARANASAL SINUSES: Bilateral maxillary sinus mucosal thickening. MASTOID AIR CELLS: Trace bilateral mastoid effusions. OTHER FINDINGS: None. IMPRESSION: No acute intracranial pathology. Age-related changes. No significant interval change. Maxillary sinus disease. Trace bilateral mastoid effusions.
--- NOTE | 2018-03-20 12:13 | CT ---
Date of service: 03/20/2018 PROCEDURE: CT Chest without contrast HISTORY: R sided chest trauma COMPARISON: CT chest dated 03/04/2018 TECHNIQUE: Contiguous axial images were obtained through the chest without intravenous contrast enhancement. Sagittal and coronal reconstructions were performed. Radiation dose (DLP): 298.1 mGy-cm. This CT exam was performed using one or more of the following dose reduction techniques: Automated exposure control, adjustment of the mA and/or kV according to patient size, and/or use of iterative reconstruction technique. FINDINGS: LUNGS: Clear lungs. Visualized airway clear MEDIASTINUM: Unremarkable thoracic aorta. No aneurysm. Normal sized heart. Main pulmonary artery unremarkable. No vascular congestion. No lymphadenopathy. PLEURA: No pleural fluid. No pneumothorax. BONES: Old right anterior/anterolateral 2nd-9th rib fractures. Old posterior left 8 to 11th rib fractures. Acute nondisplaced left anterolateral 9th, lateral 10th rib fractures. Old right distal clavicular comminuted fracture. No destructive lesion. UPPER ABDOMEN: TIPS stent redemonstrated with hepatic splenomegaly and upper abdominal varices. OTHER FINDINGS: None. IMPRESSION: Acute nondisplaced left anterolateral 9th and left lateral 10th rib fractures. Multiple old bilateral rib fractures as described above. No evidence of pulmonary laceration, contusion or pneumothorax. Acute fractures were not reported on the preliminary interpretation provided by [facility]. ER notification submitted electronically.
== END 2018-03-20 10:00 | disposition home or self-care (01) ==
LOC: H.ER 03:31
DX: S09.90XA Unspecified injury of head, initial encounter (principal); S22.49XA Multiple fractures of ribs, unspecified side, initial encounter for closed fracture; W01.0XXA Fall on same level from slipping, tripping and stumbling without subsequent striking against object, initial encounter; Y92.89 Other specified places as the place of occurrence of the external cause

== ENCOUNTER 2018-03-20 13:04 | Emergency (ER) | payer MEDICAID ==
[2018-03-20 13:04] VITALS: BMI 24.0
[2018-03-20 13:09] VITALS: BP 124/68; PULSE 111; RESP 20; TEMP 98.6; O2SAT 98
--- NOTE | 2018-03-20 14:29 | ED PDOC ---
HPI: General Adult Time Seen by Provider: 03/20/18 13:14 Chief Complaint (Nursing): Rib Injury Chief Complaint (Provider): flank pain History Per: Patient History/Exam Limitations: no limitations Onset/Duration Of Symptoms: Hrs (today) Additional Complaint(s): Shreyas Sepulveda is a 52 year old male, with a past medical history of seizure disorder, who presents to the emergency department complaining of right flank pain s/p fall yesterday. Patient was seen last night and had a CT chest done. CT was initially negative but after radiologist re-read it, he was diagnosed with a 9th and 10th rib fracture. Patient presents today with pain. He denies any other medical complaints and is requesting food in the ED. PMD: Chanelle Rowe Past Medical History Reviewed: Historical Data, Nursing Documentation, Vital Signs Vital Signs: Last Vital Signs Temp 98.6 F 03/20/18 13:07 Pulse 111 H 03/20/18 13:07 Resp 20 03/20/18 13:07 BP 124/68 03/20/18 13:07 Pulse Ox 98 03/20/18 13:07 - Medical History PMH: Anemia, Anxiety, Back Problems (herniated disc), Deep Vein Thrombosis, Fractures (rib, left shoulder, left hand 5th digit, humerus), Gastritis, Gall Bladder Disease (Cholelithiasis), Pancreatitis, Seizures, Chronic Pain (left shoulder) Denies: CHF, HIV, Hypercholesterolemia, Chronic Kidney Disease, Sexually Transmitted Disease - Surgical History Surgical History: Endoscopy - Family History Family History: States: Unknown Family Hx - Immunization History Hx Tetanus Toxoid Vaccination: Yes Hx Influenza Vaccination: Yes Hx Pneumococcal Vaccination: Yes - Home Medications Home Medications: Ambulatory Orders Medication Instructions Recorded Lactulose [Enulose] 20 gm PO BID #40 udc 03/05/18 Pantoprazole [Protonix EC Tab] 40 mg PO DAILY #30 ect 03/05/18 Amoxicillin/Clavulanate [Augmentin 1 tab PO BID #14 tab 03/11/18 875 MG-125 MG] levETIRAcetam [Keppra] 500 mg PO Q12H #60 tab 03/13/18 - Allergies Allergies/Adverse Reactions: Allergies Allergy/AdvReac Type Severity Reaction Status Date / Time aspirin Allergy NAUSEA Verified 03/20/18 04:35 ibuprofen [From Motrin] Allergy NAUSEA Verified 03/20/18 04:35 naproxen Allergy RASH Verified 03/20/18 04:35 NSAIDS (Non-Steroidal Allergy NAUSEA Verified 03/20/18 04:35 Anti-Inflamma Review of Systems ROS Statement: Except As Marked, All Systems Reviewed And Found Negative Musculoskeletal: Positive for: Other (flank pain) Physical Exam - Reviewed Nursing Documentation Reviewed: Yes Vital Signs Reviewed: Yes - Physical Exam Appears: Positive for: No Acute Distress Head Exam: Positive for: ATRAUMATIC, NORMOCEPHALIC Skin: Positive for: Normal Color, Warm, Dry Eye Exam: Positive for: Normal appearance Neck: Positive for: Painless ROM Cardiovascular/Chest: Positive for: Regular Rate, Rhythm. Negative for: Murmur Respiratory: Positive for: Normal Breath Sounds. Negative for: Respiratory Distress Back: Positive for: Normal Inspection. Negative for: Vertebral Tenderness Extremity: Positive for: Normal ROM (upper and lower extremities). Negative for: Tenderness, Deformity, Swelling Neurologic/Psych: Positive for: Alert, Oriented, Gait (steady) - ECG O2 Sat by Pulse Oximetry: 98 (RA) Pulse Ox Interpretation: Normal Medical Decision Making Medical Decision Making: Time: 13:14 Initial Impression: Fall, malingering Initial Plan: --Tylenol 325mg tab 650 mg PO --Incentive Spirometer TID 14:20 Patient is medically stable, and requires no further treatment in the ED at this time. Patient will be discharged home. Counseling was provided and all questions were answered regarding diagnosis and need for follow up with PMD. There is agreement to discharge plan. Return if symptoms persist or worsen. Scribe Attestation: Documented by Giovany Puri, acting as a scribe for Ninoska Wells PA-C Provider Scribe Attestation: All medical record entries made by the Scribe were at my direction and p ersonally dictated by me. I have reviewed the chart and agree that the record accurately reflects my personal performance of the history, physical exam, medical decision making, and the department course for this patient. I have also personally directed, reviewed, and agree with the discharge instructions and disposition. Disposition - Clinical Impression Clinical Impression: Rib fracture - Disposition Referrals: Chanelle Rowe MD [Primary Care Provider] - Disposition: Routine/Home Disposition Time: 14:25 Condition: STABLE Instructions: Rib Fractures in Adults Forms: [facility] (Sierra Leonean)
== END 2018-03-20 14:29 | disposition home or self-care (01) ==
LOC: H.ER 13:04 → SUPCPDRO 13:04 → H.ER 14:29
DX: S22.49XA Multiple fractures of ribs, unspecified side, initial encounter for closed fracture (principal); W19.XXXA Unspecified fall, initial encounter; Y92.89 Other specified places as the place of occurrence of the external cause

== ENCOUNTER 2018-03-20 18:01 | Emergency (ER) | payer MEDICAID ==
[2018-03-20 18:01] VITALS: BMI 24.0
[2018-03-20 18:09] VITALS: BP 126/74; PULSE 101; RESP 18; TEMP 98.5; O2SAT 99
== END 2018-03-20 18:08 | disposition left against medical advice (07) ==
LOC: SUPCPDRO 18:01 → H.ER 18:01
DX: Z02.89 Encounter for other administrative examinations (principal)

== ENCOUNTER 2018-03-21 01:13 | Emergency (ER) | payer MEDICAID ==
[2018-03-21 01:14] VITALS: BMI 24.0
[2018-03-21 01:36] VITALS: RESP 16
--- NOTE | 2018-03-21 05:25 | ED PDOC ---
HPI: General Adult Time Seen by Provider: 03/21/18 02:28 Chief Complaint (Nursing): Rib Injury Chief Complaint (Provider): Rib Injury History Per: Patient History/Exam Limitations: no limitations Current Symptoms Are (Timing): Still Present Additional Complaint(s): 52 year old male with a history of seizures and alcohol abuse presents to the ED with a rib injury. Patient is well known to this provider and the ED for multiple visits and bed seeking behavior. PMD: none provided Past Medical History Reviewed: Historical Data, Nursing Documentation, Vital Signs Vital Signs: Last Vital Signs Temp 97.8 F 03/21/18 01:33 Pulse 87 03/21/18 01:33 Resp 16 03/21/18 01:33 BP 130/78 03/21/18 01:33 Pulse Ox 100 03/21/18 01:33 - Medical History PMH: Anemia, Anxiety, Back Problems (herniated disc), Deep Vein Thrombosis, Fractures (rib, left shoulder, left hand 5th digit, humerus), Gastritis, Gall Bladder Disease (Cholelithiasis), Pancreatitis, Seizures, Chronic Pain (left shoulder) Denies: CHF, HIV, Hypercholesterolemia, Chronic Kidney Disease, Sexually Transmitted Disease - Surgical History Surgical History: Endoscopy - Family History Family History: States: Unknown Family Hx - Immunization History Hx Tetanus Toxoid Vaccination: Yes Hx Influenza Vaccination: Yes Hx Pneumococcal Vaccination: Yes - Home Medications Home Medications: Ambulatory Orders Medication Instructions Recorded Lactulose [Enulose] 20 gm PO BID #40 udc 03/05/18 Pantoprazole [Protonix EC Tab] 40 mg PO DAILY #30 ect 03/05/18 Amoxicillin/Clavulanate [Augmentin 1 tab PO BID #14 tab 03/11/18 875 MG-125 MG] levETIRAcetam [Keppra] 500 mg PO Q12H #60 tab 03/13/18 Acetaminophen [Pain Reliever] 500 mg PO Q4 #30 tablet 03/21/18 - Allergies Allergies/Adverse Reactions: Allergies Allergy/AdvReac Type Severity Reaction Status Date / Time aspirin Allergy NAUSEA Verified 03/20/18 04:35 ibuprofen [From Motrin] Allergy NAUSEA Verified 03/20/18 04:35 naproxen Allergy RASH Verified 03/20/18 04:35 NSAIDS (Non-Steroidal Allergy NAUSEA Verified 03/20/18 04:35 Anti-Inflamma Review of Systems ROS Statement: Except As Marked, All Systems Reviewed And Found Negative Musculoskeletal: Positive for: Other (rib injury) Physical Exam - Reviewed Nursing Documentation Reviewed: Yes Vital Signs Reviewed: Yes - Physical Exam Appears: Positive for: Well, Non-toxic, No Acute Distress Head Exam: Positive for: ATRAUMATIC, NORMAL INSPECTION, NORMOCEPHALIC Skin: Positive for: Normal Color, Warm, DRY Eye Exam: Positive for: EOMI, Normal appearance, PERRL ENT: Positive for: Normal ENT Inspection Neck: Positive for: Normal, Painless ROM Cardiovascular/Chest: Positive for: Regular Rate, Rhythm, Chest Non Tender Respiratory: Positive for: CNT, Normal Breath Sounds Gastrointestinal/Abdominal: Positive for: Normal Exam, Soft Back: Positive for: Normal Inspection Extremity: Positive for: Normal ROM Neurologic/Psych: Positive for: Alert, Oriented - ECG O2 Sat by Pulse Oximetry: 100 (RA) Pulse Ox Interpretation: Normal Medical Decision Making Medical Decision Making: Patient with chronic complaints. No acute intervention needed in ED Disposition - Clinical Impression Clinical Impression: Rib contusion - Disposition Referrals: [facility] [Outside] Disposition: Routine/Home Disposition Time: 05:50 Condition: STABLE Prescriptions: Acetaminophen [Pain Reliever] 500 mg PO Q4 #30 tablet Instructions: Bruised Rib (DC) Forms: [employer] (Slovenian)
[2018-03-21 06:33] VITALS: BP 122/74; PULSE 76; TEMP 97.9; O2SAT 97
== END 2018-03-21 06:00 | disposition home or self-care (01) ==
LOC: H.ER 01:13
DX: S20.219A Contusion of unspecified front wall of thorax, initial encounter (principal); Y92.89 Other specified places as the place of occurrence of the external cause

== ENCOUNTER 2018-03-21 15:07 | Emergency (ER) | payer MEDICAID ==
[2018-03-21 15:07] VITALS: BMI 24.0
[2018-03-21 15:19] VITALS: BP 130/66; PULSE 95; RESP 18; TEMP 98.2; O2SAT 97
--- NOTE | 2018-03-21 15:41 | ED PDOC ---
HPI: Seizure Chief Complaint (Provider): Pt reports having a seizure Additional Complaint(s): 52 yo male with history of alcohol abuse, GI bleed and seizure disorder presents for evaluation of seizures. Pt states he has not been taking his keppra. Pt ambulating on my arrival to the room. Pt denies pain. <Ninoska Wells - Last Filed: 03/21/18 15:37> <Haydee España - Last Filed: 03/26/18 13:39> Time Seen by Provider: 03/21/18 15:26 Chief Complaint (Nursing): Seizure Past Medical History Reviewed: Historical Data, Nursing Documentation, Vital Signs Vital Signs: Last Vital Signs Temp 98.2 F 03/21/18 15:16 Pulse 95 H 03/21/18 15:16 Resp 18 03/21/18 15:16 BP 130/66 03/21/18 15:16 Pulse Ox 97 03/21/18 15:16 - Medical History PMH: Anemia, Anxiety, Back Problems (herniated disc), Deep Vein Thrombosis, Fractures (rib, left shoulder, left hand 5th digit, humerus), Gastritis, Gall Bl adder Disease (Cholelithiasis), Pancreatitis, Seizures, Chronic Pain (left shoulder) Denies: CHF, HIV, Hypercholesterolemia, Chronic Kidney Disease, Sexually Transmitted Disease - Surgical History Surgical History: Endoscopy - Family History Family History: States: Unknown Family Hx - Immunization History Hx Tetanus Toxoid Vaccination: Yes Hx Influenza Vaccination: Yes Hx Pneumococcal Vaccination: Yes <Ninoska Wells - Last Filed: 03/21/18 15:37> Vital Signs: Last Vital Signs Temp 98.2 F 03/21/18 15:16 Pulse 95 H 03/21/18 15:16 Resp 18 03/21/18 15:16 BP 130/66 03/21/18 15:16 Pulse Ox 97 03/21/18 15:42 <Haydee España - Last Filed: 03/26/18 13:39> - Home Medications Home Medications: Ambulatory Orders Medication Instructions Recorded RX: Lactulose [Enulose] 20 gm PO BID #40 udc 03/05/18 RX: Pantoprazole [Protonix EC Tab] 40 mg PO DAILY #30 ect 03/05/18 Amoxicillin/Clavulanate [Augmentin 1 tab PO BID #14 tab 03/11/18 875 MG-125 MG] RX: levETIRAcetam [Keppra] 500 mg PO Q12H #60 tab 03/13/18 RX: Acetaminophen [Pain Reliever] 500 mg PO Q4 #30 tablet 03/21/18 RX: Omeprazole 20 mg PO DAILY #30 capsule. 03/22/18 - Allergies Allergies/Adverse Reactions: Allergies Allergy/AdvReac Type Severity Reaction Status Date / Time aspirin Allergy NAUSEA Verified 03/25/18 16:55 ibuprofen [From Motrin] Allergy NAUSEA Verified 03/25/18 16:55 naproxen Allergy RASH Verified 03/25/18 16:55 NSAIDS (Non-Steroidal Allergy NAUSEA Verified 03/25/18 16:55 Anti-Inflamma Review of Systems ROS Statement: Except As Marked, All Systems Reviewed And Found Negative Constitutional: Negative for: Fever, Chills Cardiovascular: Negative for: Chest Pain, Palpitations Respiratory: Negative for: Cough, Shortness of Breath Neurological: Positive for: Seizures. Negative for: Confusion, Altered Mental Status, Dizziness <Ninoska Wells - Last Filed: 03/21/18 15:37> Physical Exam - Reviewed Nursing Documentation Reviewed: Yes Vital Signs Reviewed: Yes - Physical Exam Appears: Positive for: Well, Non-toxic, No Acute Distress Head Exam: Positive for: ATRAUMATIC, NORMAL INSPECTION, NORMOCEPHALIC Skin: Positive for: Normal Color, Warm, DRY Eye Exam: Positive for: Normal appearance, EOMI, PERRL ENT: Positive for: Normal ENT Inspection Neck: Positive for: Normal, Painless ROM Cardiovascular/Chest: Positive for: Regular Rate, Rhythm Respiratory: Positive for: Normal Breath Sounds. Negative for: Accessory Muscle Use, Respiratory Distress Back: Positive for: Normal Inspection Extremity: Positive for: Normal ROM Neurologic/Psych: Positive for: Alert, Oriented <Ninoska Wells - Last Filed: 03/21/18 15:37> - ECG O2 Sat by Pulse Oximetry: 97 <Ninoska Wells - Last Filed: 03/21/18 15:37> Medical Decision Making Medical Decision Making: Keppra given in ER. <Ninoska Wells - Last Filed: 03/21/18 15:37> Disposition - Patient ED Disposition Is Patient to be Admitted: No Counseled Patient/Family Regarding: Diagnosis, Need For Followup - Disposition Disposition: Routine/Home Disposition Time: 15:42 <Ninoska Wells - Last Filed: 03/21/18 15:37> <Haydee España - Last Filed: 03/26/18 13:39> - Clinical Impression Clinical Impression: Seizure disorder - Disposition Referrals: [facility] [Outside] Condition: STABLE Instructions: Seizures, Adult (DC) Forms: [facility] (Beninese) Addendum Addendum: 03/26/18 13:39 Reviewed pt chart and agree with assessment and plan. <Haydee España - Last Filed: 03/26/18 13:39>
== END 2018-03-21 15:30 | disposition left against medical advice (07) ==
LOC: H.ER 15:07
DX: G40.909 Epilepsy, unspecified, not intractable, without status epilepticus (principal)

== ENCOUNTER 2018-03-21 17:47 | Emergency (ER) | payer MEDICAID ==
[2018-03-21 17:47] VITALS: BMI 24.0
[2018-03-21 19:04] VITALS: BP 121/62; PULSE 87; RESP 18; TEMP 98.1; O2SAT 98
--- NOTE | 2018-03-21 19:20 | ED PDOC ---
HPI: Seizure Chief Complaint (Provider): Seizure Precipitating Factor(s): None Additional Complaint(s): 52 yo male with history of anemia, UGIB, alcohol abuse and seizure disorder presents after having a seizure. Pt ambulated into ER holding his walker. Pt states he did not stay for his Kepra this afternoon. Pt also reports right rib pain. Pt diagnosed with rib f a few days ago. <Ninoska Wells - Last Filed: 03/21/18 19:17> <Fatimah Morillo - Last Filed: 03/22/18 16:08> Time Seen by Provider: 03/21/18 18:31 Chief Complaint (Nursing): Seizure Past Medical History Reviewed: Historical Data, Nursing Documentation, Vital Signs Vital Signs: Last Vital Signs Temp 98.1 F 03/21/18 19:03 Pulse 87 03/21/18 19:03 Resp 18 03/21/18 19:03 BP 121/62 03/21/18 19:03 Pulse Ox 98 03/21/18 19:03 - Medical History PMH: Anemia, Anxiety, Back Problems (herniated disc), Deep Vein Thrombosis, Fractures (rib, left shoulder, left hand 5th digit, humerus), Gastritis, Gall Bladder Disease (Cholelithiasis), Pancreatitis, Seizures, Chronic Pain (left shoulder) Denies: CHF, HIV, Hypercholesterolemia, Chronic Kidney Disease, Sexually Transmitted Disease - Surgical History Surgical History: Endoscopy - Family History Family History: States: Unknown Family Hx - Immunization History Hx Tetanus Toxoid Vaccination: Yes Hx Influenza Vaccination: Yes Hx Pneumococcal Vaccination: Yes <Ninoska Wells - Last Filed: 03/21/18 19:17> Vital Signs: Last Vital Signs Temp 98.1 F 03/21/18 19:03 Pulse 87 03/21/18 19:03 Resp 18 03/21/18 19:03 BP 121/62 03/21/18 19:03 Pulse Ox 98 03/21/18 19:23 <Fatimah Morillo - Last Filed: 03/22/18 16:08> - Home Medications Home Medications: Ambulatory Orders Medication Instructions Recorded RX: Lactulose [Enulose] 20 gm PO BID #40 udc 03/05/18 RX: Pantoprazole [Protonix EC Tab] 40 mg PO DAILY #30 ect 03/05/18 Amoxicillin/Clavulanate [Augmentin 1 tab PO BID #14 tab 03/11/18 875 MG-125 MG] RX: levETIRAcetam [Keppra] 500 mg PO Q12H #60 tab 03/13/18 RX: Acetaminophen [Pain Reliever] 500 mg PO Q4 #30 tablet 03/21/18 RX: Omeprazole 20 mg PO DAILY #30 capsule. 03/22/18 - Allergies Allergies/Adverse Reactions: Allergies Allergy/AdvReac Type Severity Reaction Status Date / Time aspirin Allergy NAUSEA Verified 03/22/18 14:12 ibuprofen [From Motrin] Allergy NAUSEA Verified 03/22/18 14:12 naproxen Allergy RASH Verified 03/22/18 14:12 NSAIDS (Non-Steroidal Allergy NAUSEA Verified 03/22/18 14:12 Anti-Inflamma Review of Systems ROS Statement: Except As Marked, All Systems Reviewed And Found Negative Constitutional: Negative for: Fever, Chills ENT: Negative for: Ear Pain, Ear Discharge Cardiovascular: Negative for: Chest Pain, Palpitations Respiratory: Negative for: Cough, Shortness of Breath Gastrointestinal: Negative for: Vomiting, Abdominal Pain Neurological: Positive for: Seizures <Ninoska Wells - Last Filed: 03/21/18 19:17> Physical Exam - Reviewed Nursing Documentation Reviewed: Yes Vital Signs Reviewed: Yes - Physical Exam Appears: Positive for: Well, Non-toxic, No Acute Distress Head Exam: Positive for: ATRAUMATIC, NORMAL INSPECTION, NORMOCEPHALIC Skin: Positive for: Normal Color, Warm, DRY Eye Exam: Positive for: Normal appearance ENT: Positive for: Normal ENT Inspection Neck: Positive for: Normal, Painless ROM Cardiovascular/Chest: Positive for: Regular Rate, Rhythm Respiratory: Positive for: Normal Breath Sounds. Negative for: Accessory Muscle Use, Respiratory Distress Back: Positive for: Normal Inspection Extremity: Positive for: Normal ROM Neurologic/Psych: Positive for: Alert, Oriented <Ninoska Wells - Last Filed: 03/21/18 19:17> - ECG O2 Sat by Pulse Oximetry: 98 <Ninoska Wells - Last Filed: 03/21/18 19:17> Medical Decision Making Medical Decision Making: Keppra given in ER Tramadol for pain. <Ninoska Wells - Last Filed: 03/21/18 19:17> Disposition - Patient ED Disposition Is Patient to be Admitted: No Counseled Patient/Family Regarding: Diagnosis, Need For Followup - Disposition Disposition: Routine/Home Disposition Time: 19:23 <Ninoska Wells - Last Filed: 03/21/18 19:17> <Fatimah Morillo - Last Filed: 03/22/18 16:08> - Clinical Impression Clinical Impression: Frequent seizures - Disposition Condition: GOOD Instructions: Seizures, Adult (DC) Forms: [facility] (Greenlandic) - PA / COMMUNITY [employer]REACH [employer]VOCATE / Resident Statement MD/DO has reviewed & agrees with the documentation as recorded. <Fatimah Morillo - Last Filed: 03/22/18 16:08>
== END 2018-03-21 20:18 | disposition home or self-care (01) ==
LOC: H.ER 17:47
DX: G40.909 Epilepsy, unspecified, not intractable, without status epilepticus (principal)

== ENCOUNTER 2018-03-22 02:41 | Emergency (ER) | payer MEDICAID ==
[2018-03-22 02:41] VITALS: BMI 24.0
[2018-03-22 03:34] VITALS: BP 137/79; PULSE 87; RESP 18; TEMP 98.5; O2SAT 99
--- NOTE | 2018-03-22 05:41 | ED PDOC ---
HPI: General Adult Time Seen by Provider: 03/22/18 03:34 Chief Complaint (Nursing): GI Problem History Per: Patient History/Exam Limitations: no limitations Onset/Duration Of Symptoms: Hrs Current Symptoms Are (Timing): Gone Now Additional Complaint(s): Patient states he vomited blood x 1. Has had no vomiting since being in the ER. States he also had seizures. No seizure activity in the ER. Past Medical History Reviewed: Historical Data, Nursing Documentation Vital Signs: Last Vital Signs Temp 98.5 F 03/22/18 03:25 Pulse 87 03/22/18 03:25 Resp 18 03/22/18 03:25 BP 137/79 03/22/18 03:25 Pulse Ox 99 03/22/18 03:25 - Medical History PMH: Anemia, Anxiety, Back Problems (herniated disc), Deep Vein Thrombosis, Fractures (rib, left shoulder, left hand 5th digit, humerus), Gastritis, Gall Bladder Disease (Cholelithiasis), Pancreatitis, Seizures, Chronic Pain (left shoulder) Denies: CHF, HIV, Hypercholesterolemia, Chronic Kidney Disease, Sexually Transmitted Disease - Surgical History Surgical History: Endoscopy - Family History Family History: States: Unknown Family Hx - Immunization History Hx Tetanus Toxoid Vaccination: Yes Hx Influenza Vaccination: Yes Hx Pneumococcal Vaccination: Yes - Home Medications Home Medications: Ambulatory Orders Medication Instructions Recorded Lactulose [Enulose] 20 gm PO BID #40 udc 03/05/18 Pantoprazole [Protonix EC Tab] 40 mg PO DAILY #30 ect 03/05/18 Amoxicillin/Clavulanate [Augmentin 1 tab PO BID #14 tab 03/11/18 875 MG-125 MG] levETIRAcetam [Keppra] 500 mg PO Q12H #60 tab 03/13/18 Acetaminophen [Pain Reliever] 500 mg PO Q4 #30 tablet 03/21/18 - Allergies Allergies/Adverse Reactions: Allergies Allergy/AdvReac Type Severity Reaction Status Date / Time aspirin Allergy NAUSEA Verified 03/21/18 18:13 ibuprofen [From Motrin] Allergy NAUSEA Verified 03/21/18 18:13 naproxen Allergy RASH Verified 03/21/18 18:13 NSAIDS (Non-Steroidal Allergy NAUSEA Verified 03/21/18 18:13 Anti-Inflamma Review of Systems ROS Statement: Except As Marked, All Systems Reviewed And Found Negative Gastrointestinal: Positive for: Hematemesis Neurological: Positive for: Seizures Physical Exam - Reviewed Nursing Documentation Reviewed: Yes Vital Signs Reviewed: Yes - Physical Exam Appears: Positive for: Non-toxic, No Acute Distress. Negative for: Well (Disheveld) Head Exam: Positive for: ATRAUMATIC, NORMAL INSPECTION, NORMOCEPHALIC Skin: Positive for: Normal Color, Warm, DRY Eye Exam: Positive for: EOMI, Normal appearance, PERRL ENT: Positive for: Normal ENT Inspection Neck: Positive for: Normal, Painless ROM Cardiovascular/Chest: Positive for: Regular Rate, Rhythm Respiratory: Positive for: CNT, Normal Breath Sounds Gastrointestinal/Abdominal: Positive for: Normal Exam, Soft Back: Positive for: Normal Inspection Extremity: Positive for: Normal ROM Neurologic/Psych: Positive for: Alert, Oriented - ECG O2 Sat by Pulse Oximetry: 99 Pulse Ox Interpretation: Normal Medical Decision Making Medical Decision Making: Patient well appearing with no vomiting, normal vitals. Advised to followup with Dr. Bradley Disposition - Clinical Impression Clinical Impression: Vomiting - Disposition Referrals: Gage Bradley MD [Medical Doctor] - Disposition: Routine/Home Disposition Time: 05:44 Condition: STABLE Instructions: Nausea and Vomiting, Adult (DC)
== END 2018-03-22 06:49 | disposition home or self-care (01) ==
LOC: H.ER 02:41
DX: R11.10 Vomiting, unspecified (principal); G89.29 Other chronic pain; R56.9 Unspecified convulsions; Z86.718 Personal history of other venous thrombosis and embolism; Z88.6 Allergy status to analgesic agent

== ENCOUNTER 2018-03-22 13:47 | Emergency (ER) | payer MEDICAID ==
[2018-03-22 13:47] VITALS: BMI 24.0
[2018-03-22 14:16] VITALS: BP 176/68; PULSE 98; RESP 16; TEMP 98; O2SAT 98
--- NOTE | 2018-03-22 15:00 | ED PDOC ---
HPI: Seizure Chief Complaint (Provider): SEIZURE History Per: Patient (52 Y/O MALE H/O SEIZURE AND ALCOHOL ABUSE HERE FOR EVALUATION OF SEIZURE NOTED TODAY. TOOK KEPRA PRESCRIBED. DENIES ANY COMPLAINTS. ADMITS ETOH TODAY "1 SHOT.") <Ceci Rangel - Last Filed: 03/22/18 15:00> <Brown Maloney - Last Filed: 03/24/18 10:18> Time Seen by Provider: 03/22/18 14:33 Chief Complaint (Nursing): Seizure Past Medical History Reviewed: Historical Data, Nursing Documentation, Vital Signs Vital Signs: Last Vital Signs Temp 98.0 F 03/22/18 14:14 Pulse 98 H 03/22/18 14:14 Resp 16 03/22/18 14:14 BP 176/68 H 03/22/18 14:14 Pulse Ox 98 03/22/18 14:14 - Medical History PMH: Anemia, Anxiety, Back Problems (herniated disc), Deep Vein Thrombosis, Fractures (rib, left shoulder, left hand 5th digit, humerus), Gastritis, Gall Bladder Disease (Cholelithiasis), Pancreatitis, Seizures, Chronic Pain (left zandra ulder) Denies: CHF, HIV, Hypercholesterolemia, Chronic Kidney Disease, Sexually Transmitted Disease - Surgical History Surgical History: Endoscopy - Family History Family History: States: Unknown Family Hx - Immunization History Hx Tetanus Toxoid Vaccination: Yes Hx Influenza Vaccination: Yes Hx Pneumococcal Vaccination: Yes <Ceci Rangel - Last Filed: 03/22/18 15:00> Vital Signs: Last Vital Signs Temp 98.0 F 03/22/18 14:14 Pulse 98 H 03/22/18 14:14 Resp 16 03/22/18 14:14 BP 176/68 H 03/22/18 14:14 Pulse Ox 98 03/22/18 15:00 <Brown Maloney - Last Filed: 03/24/18 10:18> - Home Medications Home Medications: Ambulatory Orders Medication Instructions Recorded RX: Lactulose [Enulose] 20 gm PO BID #40 udc 03/05/18 RX: Pantoprazole [Protonix EC Tab] 40 mg PO DAILY #30 ect 03/05/18 Amoxicillin/Clavulanate [Augmentin 1 tab PO BID #14 tab 03/11/18 875 MG-125 MG] RX: levETIRAcetam [Keppra] 500 mg PO Q12H #60 tab 03/13/18 RX: Acetaminophen [Pain Reliever] 500 mg PO Q4 #30 tablet 03/21/18 RX: Omeprazole 20 mg PO DAILY #30 capsule. 03/22/18 - Allergies Allergies/Adverse Reactions: Allergies Allergy/AdvReac Type Severity Reaction Status Date / Time aspirin Allergy NAUSEA Verified 03/22/18 14:12 ibuprofen [From Motrin] Allergy NAUSEA Verified 03/22/18 14:12 naproxen Allergy RASH Verified 03/22/18 14:12 NSAIDS (Non-Steroidal Allergy NAUSEA Verified 03/22/18 14:12 Anti-Inflamma Review of Systems ROS Statement: Except As Marked, All Systems Reviewed And Found Negative <Ceci Rangel - Last Filed: 03/22/18 15:00> Physical Exam - Reviewed Nursing Documentation Reviewed: Yes Vital Signs Reviewed: Yes - Physical Exam Appears: Positive for: Well, Non-toxic, No Acute Distress Head Exam: Positive for: ATRAUMATIC, NORMAL INSPECTION, NORMOCEPHALIC Skin: Positive for: Normal Color, Warm, DRY Eye Exam: Positive for: EOMI, Normal appearance, PERRL ENT: Positive for: Normal ENT Inspection Neck: Positive for: Normal, Painless ROM Cardiovascular/Chest: Positive for: Regular Rate, Rhythm Respiratory: Positive for: CNT, Normal Breath Sounds Gastrointestinal/Abdominal: Positive for: Normal Exam, Soft Back: Positive for: Normal Inspection Extremity: Positive for: Normal ROM Neurologic/Psych: Positive for: Alert, Oriented <Ceci Rangel - Last Filed: 03/22/18 15:00> - ECG O2 Sat by Pulse Oximetry: 98 <Ceci Rangel - Last Filed: 03/22/18 15:00> Disposition - Patient ED Disposition Is Patient to be Admitted: No - Disposition Disposition: Routine/Home Disposition Time: 14:59 <Ceci Rangel - Last Filed: 03/22/18 15:00> <Brown Maloney - Last Filed: 03/24/18 10:18> - Clinical Impression Clinical Impression: Seizure disorder, Alcohol use - Disposition Condition: FAIR Instructions: Alcohol Use - When Is Drinking a Problem?, Seizures, Adult (DC) Addendum Addendum: 03/24/18 10:18 Reviewed chart and agree with Pa. <Brown Maloney M - Last Filed: 03/24/18 10:18>
== END 2018-03-22 14:50 | disposition home or self-care (01) ==
LOC: H.ER 13:47
DX: G40.909 Epilepsy, unspecified, not intractable, without status epilepticus (principal); F10.10 Alcohol abuse, uncomplicated; G89.29 Other chronic pain; Z86.718 Personal history of other venous thrombosis and embolism; Z88.6 Allergy status to analgesic agent

== ENCOUNTER 2018-03-23 03:33 | Emergency (ER) | payer MEDICAID ==
[2018-03-23 03:33] VITALS: BMI 24.0
[2018-03-23 03:39] VITALS: TEMP 97.6
--- NOTE | 2018-03-23 04:02 | ED PDOC ---
HPI: Seizure Time Seen by Provider: 03/23/18 03:35 Chief Complaint (Nursing): Seizure Chief Complaint (Provider): Seizure History Per: Patient History/Exam Limitations: no limitations Additional Complaint(s): Shreyas Sepulveda is a 52 year old male with a past medical history of seizure disorder, who is very well known to the ED and provider, and is presenting for evaluation of self-reported seizure onset prior to arrival. Patient presents with no seizure activity in the ED at this time. PMD: Chanelle Rowe Past Medical History Reviewed: Historical Data, Nursing Documentation, Vital Signs Vital Signs: Last Vital Signs Temp 97.6 F 03/23/18 03:34 Pulse 80 03/23/18 03:34 Resp 18 03/23/18 03:34 BP 103/51 L 03/23/18 03:34 Pulse Ox 100 03/23/18 03:34 - Medical History PMH: Anemia, Anxiety, Back Problems (herniated disc), Deep Vein Thrombosis, F ractures (rib, left shoulder, left hand 5th digit, humerus), Gastritis, Gall Bladder Disease (Cholelithiasis), Pancreatitis, Seizures, Chronic Pain (left shoulder) Denies: CHF, HIV, Hypercholesterolemia, Chronic Kidney Disease, Sexually Transmitted Disease - Surgical History Surgical History: Endoscopy - Family History Family History: States: Unknown Family Hx - Immunization History Hx Tetanus Toxoid Vaccination: Yes Hx Influenza Vaccination: Yes Hx Pneumococcal Vaccination: Yes - Home Medications Home Medications: Ambulatory Orders Medication Instructions Recorded Lactulose [Enulose] 20 gm PO BID #40 udc 03/05/18 Pantoprazole [Protonix EC Tab] 40 mg PO DAILY #30 ect 03/05/18 Amoxicillin/Clavulanate [Augmentin 1 tab PO BID #14 tab 03/11/18 875 MG-125 MG] levETIRAcetam [Keppra] 500 mg PO Q12H #60 tab 03/13/18 Acetaminophen [Pain Reliever] 500 mg PO Q4 #30 tablet 03/21/18 Omeprazole 20 mg PO DAILY #30 capsule. 03/22/18 - Allergies Allergies/Adverse Reactions: Allergies Allergy/AdvReac Type Severity Reaction Status Date / Time aspirin Allergy NAUSEA Verified 03/22/18 14:12 ibuprofen [From Motrin] Allergy NAUSEA Verified 03/22/18 14:12 naproxen Allergy RASH Verified 03/22/18 14:12 NSAIDS (Non-Steroidal Allergy NAUSEA Verified 03/22/18 14:12 Anti-Inflamma Review of Systems ROS Statement: Except As Marked, All Systems Reviewed And Found Negative Neurological: Positive for: Seizures Physical Exam - Reviewed Nursing Documentation Reviewed: Yes Vital Signs Reviewed: Yes - Physical Exam Appears: Positive for: Well, Non-toxic, No Acute Distress Head Exam: Positive for: ATRAUMATIC, NORMAL INSPECTION, NORMOCEPHALIC Skin: Positive for: Normal Color, Warm, DRY Eye Exam: Positive for: EOMI, Normal appearance, PERRL ENT: Positive for: Normal ENT Inspection Neck: Positive for: Normal, Painless ROM Cardiovascular/Chest: Positive for: Regular Rate, Rhythm. Negative for: Murmur Respiratory: Positive for: Normal Breath Sounds. Negative for: Respiratory Distress Gastrointestinal/Abdominal: Positive for: Normal Exam, Soft. Negative for: Tenderness Back: Positive for: Normal Inspection Extremity: Positive for: Normal ROM. Negative for: Deformity, Swelling Neurologic/Psych: Positive for: Alert, Oriented. Negative for: Motor/Sensory Deficits - ECG O2 Sat by Pulse Oximetry: 100 (RA) Pulse Ox Interpretation: Normal Medical Decision Making Medical Decision Making: Time: 3:35 A/P: 52 year old male with seizure disorder presenting for evaluation of unwitnessed seizure --Patient is resting comfortably in the ED with stable vitals. --No seizure like activity was noted in the ED. Scribe Attestation: Documented by Roxana Wang, acting as a scribe for Murphy Chiu MD. Provider Scribe Attestation: All medical record entries made by the Scribe were at my direction and personally dictated by me. I have reviewed the chart and agree that the record accurately reflects my personal performance of the history, physical exam, medical decision making, and the department course for this patient. I have also personally directed, reviewed, and agree with the discharge instructions and disposition. Disposition - Clinical Impression Clinical Impression: Seizure disorder, Malingerer [conscious simulation] - Patient ED Disposition Is Patient to be Admitted: No - Disposition Disposition: Routine/Home Disposition Time: 06:43 Condition: STABLE Forms: [employer] (Mozambican)
[2018-03-23 06:42] VITALS: BP 107/82; PULSE 75; RESP 17
[2018-03-23 06:44] VITALS: O2SAT 100
== END 2018-03-23 06:30 | disposition home or self-care (01) ==
LOC: H.ER 03:33
DX: Z76.5 Malingerer [conscious simulation] (principal); G40.909 Epilepsy, unspecified, not intractable, without status epilepticus

== ENCOUNTER 2018-03-23 16:22 | Emergency (ER) | payer MEDICAID ==
[2018-03-23 16:22] VITALS: BMI 24.0
[2018-03-23 16:30] VITALS: BP 106/50; PULSE 88; RESP 16; TEMP 98.6; O2SAT 99
--- NOTE | 2018-03-23 20:33 | ED PDOC ---
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 Has been taking his Keppra 500mg PO BID. Denies drinking alcohol. <Lincoln Olivier - Last Filed: 03/24/18 11:28> <Haydee España - Last Filed: 03/26/18 14:34> Time Seen by Provider: 03/23/18 16:48 Chief Complaint (Nursing): Seizure Past Medical History Reviewed: Historical Data, Nursing Documentation, Vital Signs Vital Signs: Last Vital Signs Temp 98.6 F 03/23/18 16:27 Pulse 88 03/23/18 16:27 Resp 16 03/23/18 16:27 BP 106/50 L 03/23/18 16:27 Pulse Ox 99 03/23/18 16:27 - Medical History PMH: Anemia, Anxiety, Back Problems (herniated disc), Deep Vein Thrombosis, Fractures (rib, left shoulder, left hand 5th digit, humerus), Gastritis, Gall Bladder Disease (Cholelithiasis), Pancreatitis, Seizures, Chronic Pain (left shoulder) Denies: CHF, HIV, Hypercholesterolemia, Chronic Kidney Disease, Sexually Transmitted Disease - Surgical History Surgical History: Endoscopy - Family History Family History: States: Unknown Family Hx - Immunization History Hx Tetanus Toxoid Vaccination: Yes Hx Influenza Vaccination: Yes Hx Pneumococcal Vaccination: Yes <Lincoln Olivier - Last Filed: 03/24/18 11:28> Vital Signs: Last Vital Signs Temp 98.6 F 03/23/18 16:27 Pulse 88 03/23/18 16:27 Resp 16 03/23/18 16:27 BP 106/50 L 03/23/18 16:27 Pulse Ox 99 03/24/18 11:33 <Haydee España - Last Filed: 03/26/18 14:34> - Home Medications Home Medications: Ambulatory Orders Medication Instructions Recorded RX: Lactulose [Enulose] 20 gm PO BID #40 udc 03/05/18 RX: Pantoprazole [Protonix EC Tab] 40 mg PO DAILY #30 ect 03/05/18 Amoxicillin/Clavulanate [Augmentin 1 tab PO BID #14 tab 03/11/18 875 MG-125 MG] RX: levETIRAcetam [Keppra] 500 mg PO Q12H #60 tab 03/13/18 RX: Acetaminophen [Pain Reliever] 500 mg PO Q4 #30 tablet 03/21/18 RX: Omeprazole 20 mg PO DAILY #30 capsule. 03/22/18 - Allergies Allergies/Adverse Reactions: Allergies Allergy/AdvReac Type Severity Reaction Status Date / Time aspirin Allergy NAUSEA Verified 03/25/18 16:55 ibuprofen [From Motrin] Allergy NAUSEA Verified 03/25/18 16:55 naproxen Allergy RASH Verified 03/25/18 16:55 NSAIDS (Non-Steroidal Allergy NAUSEA Verified 03/25/18 16:55 Anti-Inflamma Review of Systems ROS Statement: Except As Marked, All Systems Reviewed And Found Negative <Lincoln Olivier - Last Filed: 03/24/18 11:28> Physical Exam - Reviewed Nursing Documentation Reviewed: Yes Vital Signs Reviewed: Yes - Physical Exam Appears: Positive for: Well, Non-toxic, No Acute Distress Head Exam: Positive for: ATRAUMATIC, NORMAL INSPECTION, NORMOCEPHALIC Skin: Positive for: Normal Color, Warm. Negative for: Rash Eye Exam: Positive for: EOMI, Normal appearance, PERRL ENT: Positive for: Normal ENT Inspection, Other (no oral injury) Neck: Positive for: Normal, Painless ROM Cardiovascular/Chest: Positive for: Regular Rate, Rhythm Respiratory: Positive for: CNT, Normal Breath Sounds Gastrointestinal/Abdominal: Positive for: Normal Exam, Soft. Negative for: Tenderness Back: Positive for: Normal Inspection Extremity: Positive for: Normal ROM Neurologic/Psych: Positive for: Alert, Oriented. Negative for: Aphasia, Facial Droop <Lincoln Olivier - Last Filed: 03/24/18 11:28> - ECG O2 Sat by Pulse Oximetry: 99 - Progress ED Course And Treament: ETOH 205 Pt. was found with open bottles of liquor in room after lab being drawn. <Lincoln Olivier - Last Filed: 03/24/18 11:28> Disposition - Patient ED Disposition Is Patient to be Admitted: Transfer of Care (Signed out to [facility] pending sobriety.) - Disposition Disposition Time: 20:33 <Lincoln Olivier - Last Filed: 03/24/18 11:28> <Haydee España - Last Filed: 03/26/18 14:34> - Clinical Impression Clinical Impression: Alcohol intoxication - Disposition Condition: STABLE Instructions: Alcohol Abuse and Alcoholism (DC) Addendum Addendum: 03/26/18 14:34 reviewed chart and agree with PA assessment and plan. <Haydee España - Last Filed: 03/26/18 14:34>
--- NOTE | 2018-03-24 01:27 | ED PDOC ---
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 Ambulating at baseline Patient requires no further intervention in the ED and is stable for discharge at this time <Ashley Gibson - Last Filed: 03/24/18 01:25> Disposition - POA Present On Arrival: None - Disposition Disposition: Routine/Home Disposition Time: 01:27 <Ashley Gibson - Last Filed: 03/24/18 01:25> <Haydee España - Last Filed: 03/26/18 15:19> - Clinical Impression Clinical Impression: Alcohol intoxication - Disposition Condition: STABLE Instructions: Alcohol Abuse and Alcoholism (DC) Addendum Addendum: 03/26/18 15:18 Reviewed chart and agree with PA assessment and plan. <Haydee España - Last Filed: 03/26/18 15:19>
== END 2018-03-23 21:00 | disposition home or self-care (01) ==
LOC: H.ER 16:22
DX: F10.129 Alcohol abuse with intoxication, unspecified (principal)

== ENCOUNTER 2018-03-24 15:52 | Emergency (ER) | payer MEDICAID ==
[2018-03-24 15:52] VITALS: BMI 24.0
[2018-03-24 16:02] VITALS: BP 120/73; PULSE 95; RESP 18; TEMP 98.5; O2SAT 98
--- NOTE | 2018-03-24 18:07 | ED PDOC ---
HPI: Seizure Time Seen by Provider: 03/24/18 16:04 Chief Complaint (Nursing): Seizure Chief Complaint (Provider): Seizure History Per: Patient, EMS History/Exam Limitations: no limitations Recent Seizure Activity Began: Just Before Arrival Number Of Seizures: One Length Of Seizures (Duration): Unknown Precipitating Factor(s): None. denies: Recent Alcohol Ingestion (patient denies) Severity: Moderate Additional Complaint(s): 52 year old male, well known to the ED, with a medical history of seizures is brought into the ED by EMS with complaints of an unwitnessed seizure that occurred just prior to arrival. Patient states that the seizure occurred while he was eating lunch at [employer]. Patient reports that he fell to the ground, but the seizure was not witnessed. EMS was called. Patients states that he took Keppra this morning and he brought it with him for his evening dose. Patient denies consuming alcohol. Now reports feeling well, just "wants a sandwhich". PMD:None provided. Past Medical History Reviewed: Historical Data, Nursing Documentation, Vital Signs Vital Signs: Last Vital Signs Temp 98.5 F 03/24/18 15:58 Pulse 95 H 03/24/18 15:58 Resp 18 03/24/18 15:58 BP 120/73 03/24/18 15:58 Pulse Ox 98 03/24/18 15:58 - Medical History PMH: Anemia, Anxiety, Back Problems (herniated disc), Deep Vein Thrombosis, Fractures (rib, left shoulder, left hand 5th digit, humerus), Gastritis, Gall Bladder Disease (Cholelithiasis), Pancreatitis, Seizures, Chronic Pain (left shoulder) Denies: CHF, HIV, Hypercholesterolemia, Chronic Kidney Disease, Sexually Transmitted Disease - Surgical History Surgical History: Endoscopy - Family History Family History: States: Unknown Family Hx - Social History Alcohol: Other (patient denies consuming alcohol today) - Immunization History Hx Tetanus Toxoid Vaccination: Yes Hx Influenza Vaccination: Yes Hx Pneumococcal Vaccination: Yes - Home Medications Home Medications: Ambulatory Orders Medication Instructions Recorded Lactulose [Enulose] 20 gm PO BID #40 udc 03/05/18 Pantoprazole [Protonix EC Tab] 40 mg PO DAILY #30 ect 03/05/18 Amoxicillin/Clavulanate [Augmentin 1 tab PO BID #14 tab 03/11/18 875 MG-125 MG] levETIRAcetam [Keppra] 500 mg PO Q12H #60 tab 03/13/18 Acetaminophen [Pain Reliever] 500 mg PO Q4 #30 tablet 03/21/18 Omeprazole 20 mg PO DAILY #30 capsule. 03/22/18 - Allergies Allergies/Adverse Reactions: Allergies Allergy/AdvReac Type Severity Reaction Status Date / Time aspirin Allergy NAUSEA Verified 03/24/18 16:03 ibuprofen [From Motrin] Allergy NAUSEA Verified 03/24/18 16:03 naproxen Allergy RASH Verified 03/24/18 16:03 NSAIDS (Non-Steroidal Allergy NAUSEA Verified 03/24/18 16:03 Anti-Inflamma Review of Systems Neurological: Positive for: Seizures (prior to arrival.) Physical Exam - Reviewed Nursing Documentation Reviewed: Yes Vital Signs Reviewed: Yes - Physical Exam Appears: Positive for: Well, Non-toxic, No Acute Distress Head Exam: Positive for: ATRAUMATIC, NORMOCEPHALIC Skin: Positive for: Normal Color Cardiovascular/Chest: Positive for: Regular Rate, Rhythm Respiratory: Positive for: Normal Breath Sounds Neurologic/Psych: Positive for: Alert, Oriented (3x) - ECG O2 Sat by Pulse Oximetry: 98 (RA) Pulse Ox Interpretation: Normal Medical Decision Making Medical Decision Makin:04 Initial impression: 52 year old male is brought into ED by EMS after an unwitnessed seizure. Initial plan: Patient is currently not having seizure activity. Patient is eating a sandwich and will be discharged. * crisis evaluation * reevaluation Pt. ate/drank here. Pt. observed in ED x 2 hrs with no seizure activity. Pt. well appearing, ambulating with his walker. Scribe Attestation: Documented by Haydee Vela, acting as a scribe for Ana María Jc. Provider Scribe Attestation: All medical record entries made by the Scribe were at my direction and personally dictated by me. I have reviewed the chart and agree that the record accurately reflects my personal performance of the history, physical exam, medical decision making, and the department course for this patient. I have also personally directed, reviewed, and agree with the discharge instructions and disposition. Disposition - Clinical Impression Clinical Impression: Seizure, Malingering, Epileptic seizures - Disposition Disposition: Routine/Home Disposition Time: 18:45 Condition: FAIR Instructions: Seizures, Adult (DC) Forms: [employer] (Latvian)
== END 2018-03-24 20:00 | disposition home or self-care (01) ==
LOC: H.ER 15:52
DX: Z76.5 Malingerer [conscious simulation] (principal); G40.909 Epilepsy, unspecified, not intractable, without status epilepticus

== ENCOUNTER 2018-03-25 02:10 | Emergency (ER) | payer MEDICAID ==
[2018-03-25 02:10] VITALS: BMI 24.0
[2018-03-25 02:48] VITALS: PULSE 98; RESP 19; TEMP 98.6; O2SAT 97
--- NOTE | 2018-03-25 03:38 | ED PDOC ---
HPI: General Adult Time Seen by Provider: 03/25/18 02:46 Chief Complaint (Nursing): Rib Injury Chief Complaint (Provider): flank pain History Per: Patient History/Exam Limitations: no limitations Onset/Duration Of Symptoms: Days Additional Complaint(s): Shreyas Sepulveda is a 52 year old male, with a past medical history of seizure disorder, who presents to the emergency department complaining of right sided flank pain ongoing for several days. Patient reports he fell x1 week ago. Patient has been seen numerous times throughout the week and is well known to ED for multiple visits. He denies any other medical complaints. PMD: None provided. Past Medical History Reviewed: Historical Data, Nursing Documentation, Vital Signs Vital Signs: Last Vital Signs Temp 98.6 F 03/25/18 02:24 Pulse 98 H 03/25/18 02:24 Resp 19 03/25/18 02:24 BP Pulse Ox 97 03/25/18 02:24 - Medical History PMH: Anemia, Anxiety, Back Problems (herniated disc), Deep Vein Thrombosis, Fractures (rib, left shoulder, left hand 5th digit, humerus), Gastritis, Gall Bladder Disease (Cholelithiasis), Pancreatitis, Seizures, Chronic Pain (left shoulder) Denies: CHF, HIV, Hypercholesterolemia, Chronic Kidney Disease, Sexually Transmitted Disease - Surgical History Surgical History: Endoscopy - Family History Family History: States: Unknown Family Hx - Immunization History Hx Tetanus Toxoid Vaccination: Yes Hx Influenza Vaccination: Yes Hx Pneumococcal Vaccination: Yes - Home Medications Home Medications: Ambulatory Orders Medication Instructions Recorded RX: Lactulose [Enulose] 20 gm PO BID #40 udc 03/05/18 RX: Pantoprazole [Protonix EC Tab] 40 mg PO DAILY #30 ect 03/05/18 Amoxicillin/Clavulanate [Augmentin 1 tab PO BID #14 tab 03/11/18 875 MG-125 MG] RX: levETIRAcetam [Keppra] 500 mg PO Q12H #60 tab 03/13/18 RX: Acetaminophen [Pain Reliever] 500 mg PO Q4 #30 tablet 03/21/18 RX: Omeprazole 20 mg PO DAILY #30 capsule. 03/22/18 - Allergies Allergies/Adverse Reactions: Allergies Allergy/AdvReac Type Severity Reaction Status Date / Time aspirin Allergy NAUSEA Verified 03/25/18 02:46 ibuprofen [From Motrin] Allergy NAUSEA Verified 03/25/18 02:46 naproxen Allergy RASH Verified 03/25/18 02:46 NSAIDS (Non-Steroidal Allergy NAUSEA Verified 03/25/18 02:46 Anti-Inflamma Review of Systems ROS Statement: Except As Marked, All Systems Reviewed And Found Negative Musculoskeletal: Positive for: Other (right sided flank pain) Physical Exam - Reviewed Nursing Documentation Reviewed: Yes Vital Signs Reviewed: Yes - Physical Exam Appears: Positive for: No Acute Distress Head Exam: Positive for: ATRAUMATIC, NORMAL INSPECTION, NORMOCEPHALIC Skin: Positive for: Normal Color, Warm, Dry Eye Exam: Positive for: Normal appearance, EOMI, PERRL Neck: Positive for: Painless ROM Cardiovascular/Chest: Positive for: Regular Rate, Rhythm, Chest Non Tender. Negative for: Murmur Respiratory: Positive for: Normal Breath Sounds. Negative for: Respiratory Distress Gastrointestinal/Abdominal: Positive for: Normal Exam, Soft. Negative for: Tenderness, Guarding, Rebound Back: Positive for: Normal Inspection. Negative for: L CVA Tenderness, R CVA Tenderness, Vertebral Tenderness Extremity: Positive for: Normal ROM (upper and lower extremities). Negative for: Deformity, Swelling Neurologic/Psych: Positive for: Alert, Oriented, Gait (steady) - ECG O2 Sat by Pulse Oximetry: 97 (RA) Pulse Ox Interpretation: Normal Medical Decision Making Medical Decision Making: Time: 02:46 Initial Impression: Malingering Initial Plan: -patient is feeling better, is medically stable, and requires no further treat ment in the ED at this time. Patient will be discharged home. Counseling was provided and all questions were answered regarding diagnosis. There is agreement to discharge plan. Return if symptoms persist or worsen. ----- Scribe Attestation: Documented by Giovany Puri, acting as a scribe for Olaf Fernandez MD. Provider Scribe Attestation: All medical record entries made by the Scribe were at my direction and personally dictated by me. I have reviewed the chart and agree that the record accurately reflects my personal performance of the history, physical exam, medical decision making, and the department course for this patient. I have also personally directed, reviewed, and agree with the discharge instructions and disposition. Disposition - Clinical Impression Clinical Impression: Malingering - Disposition Disposition: Routine/Home Disposition Time: 06:00 Condition: STABLE Forms: [employer] (Lao)
== END 2018-03-25 06:20 | disposition home or self-care (01) ==
LOC: H.ER 02:10
DX: Z76.5 Malingerer [conscious simulation] (principal); Z86.718 Personal history of other venous thrombosis and embolism; Z88.6 Allergy status to analgesic agent; G40.909 Epilepsy, unspecified, not intractable, without status epilepticus; G89.29 Other chronic pain

== ENCOUNTER 2018-03-25 16:47 | Emergency (ER) | payer MEDICAID ==
[2018-03-25 16:48] VITALS: BMI 24.0
[2018-03-25 16:57] VITALS: BP 107/58; PULSE 95; RESP 16; TEMP 98.7; O2SAT 97
--- NOTE | 2018-03-25 18:41 | ED PDOC ---
HPI: Seizure Time Seen by Provider: 03/25/18 16:59 Chief Complaint (Nursing): Alcohol Ingestion Chief Complaint (Provider): seizures History Per: Patient, EMS History/Exam Limitations: no limitations Recent Seizure Activity Began: Unknown Length Of Seizures (Duration): Unknown Additional Complaint(s): 52 year old male, well-known to ED for multiple visit, arrives for an evaluation of an unwitnessed seizure while visiting a friend today. Patient is on Keppra and denies any further medical complaints. Upon examination, patient is requesting a sandwich and juice. Past Medical History Reviewed: Historical Data, Nursing Documentation, Vital Signs Vital Signs: Last Vital Signs Temp 98.7 F 03/25/18 16:55 Pulse 95 H 03/25/18 16:55 Resp 16 03/25/18 16:55 BP 107/58 L 03/25/18 16:55 Pulse Ox 97 03/25/18 16:55 - Medical History PMH: Anemia, Anxiety, Back Problems (herniated disc), Deep Vein Thrombosis, Fractures (rib, left shoulder, left hand 5th digit, humerus), Gastritis, Gall Bladder Disease (Cholelithiasis), Pancreatitis, Seizures, Chronic Pain (left shoulder) Denies: CHF, HIV, Hypercholesterolemia, Chronic Kidney Disease, Sexually Transmitted Disease - Surgical History Surgical History: Endoscopy - Family History Family History: States: Unknown Family Hx - Immunization History Hx Tetanus Toxoid Vaccination: Yes Hx Influenza Vaccination: Yes Hx Pneumococcal Vaccination: Yes - Home Medications Home Medications: Ambulatory Orders Medication Instructions Recorded RX: Lactulose [Enulose] 20 gm PO BID #40 udc 03/05/18 RX: Pantoprazole [Protonix EC Tab] 40 mg PO DAILY #30 ect 03/05/18 Amoxicillin/Clavulanate [Augmentin 1 tab PO BID #14 tab 03/11/18 875 MG-125 MG] RX: levETIRAcetam [Keppra] 500 mg PO Q12H #60 tab 03/13/18 RX: Acetaminophen [Pain Reliever] 500 mg PO Q4 #30 tablet 03/21/18 RX: Omeprazole 20 mg PO DAILY #30 capsule. 03/22/18 - Allergies Allergies/Adverse Reactions: Allergies Allergy/AdvReac Type Severity Reaction Status Date / Time aspirin Allergy NAUSEA Verified 03/25/18 16:55 ibuprofen [From Motrin] Allergy NAUSEA Verified 03/25/18 16:55 naproxen Allergy RASH Verified 03/25/18 16:55 NSAIDS (Non-Steroidal Allergy NAUSEA Verified 03/25/18 16:55 Anti-Inflamma Review of Systems ROS Statement: Except As Marked, All Systems Reviewed And Found Negative Neurological: Positive for: Seizures Physical Exam - Reviewed Nursing Documentation Reviewed: Yes Vital Signs Reviewed: Yes - Physical Exam Appears: Positive for: Non-toxic, No Acute Distress Head Exam: Positive for: ATRAUMATIC, NORMAL INSPECTION, NORMOCEPHALIC Skin: Positive for: Normal Color Eye Exam: Positive for: Normal appearance Neck: Positive for: Normal Cardiovascular/Chest: Positive for: Regular Rate, Rhythm Respiratory: Positive for: Normal Breath Sounds Extremity: Positive for: Normal ROM (upper/lower) Neurologic/Psych: Positive for: Alert (x3), Oriented, Gait (unsteady), Other ((+) AOB). Negative for: Motor/Sensory Deficits - ECG O2 Sat by Pulse Oximetry: 97 (RA) Pulse Ox Interpretation: Normal Medical Decision Making Medical Decision Making: Time: 1820 --Patient reports feeling better after eating food. No seizure activities witnessed in ED. Patient is medically stable for discharge home. Counseling was provided and all questions were answered regarding diagnosis. There is agreement to discharge plan. Return if symptoms persist or worsen. ScribeAttestation: Documented byDulce Hoffmann, acting as a scribe for Ana María Jc PA-C. Provider ScribeAttestation: All medical record entries made by the Scribe were at my direction and personally dictated by me. I have reviewed the chart and agree that the record accurately reflects my personal performance of the history, physical exam, medical decision making, and the department course for this patient. I have also personally directed, reviewed, and agree with the discharge instructions and disposition. Disposition - Clinical Impression Clinical Impression: Seizure disorder, Malingerer [conscious simulation] - Disposition Disposition: Routine/Home Disposition Time: 20:50 Condition: STABLE Instructions: Seizures, Adult (DC) Forms: [facility] (Faroese)
== END 2018-03-25 18:24 | disposition home or self-care (01) ==
LOC: H.ER 16:47
DX: G40.909 Epilepsy, unspecified, not intractable, without status epilepticus (principal); Z76.5 Malingerer [conscious simulation]; G89.29 Other chronic pain; Z86.718 Personal history of other venous thrombosis and embolism; Z88.6 Allergy status to analgesic agent

== ENCOUNTER 2018-03-26 01:39 | Emergency (ER) | payer MEDICAID ==
[2018-03-26 05:52] VITALS: BMI 25.7
[2018-03-26 05:54] VITALS: BP 134/87; PULSE 84; RESP 16; TEMP 97.8; O2SAT 97
--- NOTE | 2018-03-26 06:24 | ED PDOC ---
HPI: Headache Time Seen by Provider: 03/26/18 02:22 Chief Complaint (Nursing): Headache Chief Complaint (Provider): headache History Per: Patient History/Exam Limitations: no limitations Onset/Duration Of Symptoms: Hrs (today) Current Symptoms Are (Timing): Still Present Additional Complaint(s): Shreyas Sepulveda is a 52 year old male, with a past medical history of seizure disorder, who presents to the emergency department complaining of a mild headache onset today. Patient states he did not take any medication for pain. Patient denies any seizure-like activity tonight. No further medical complaints. PMD: None provided. Past Medical History Reviewed: Historical Data, Nursing Documentation, Vital Signs Vital Signs: Last Vital Signs Temp 97.8 F 03/26/18 05:53 Pulse 84 03/26/18 05:53 Resp 16 03/26/18 05:53 BP 134/87 03/26/18 05:53 Pulse Ox 97 03/26/18 05:53 - Medical History PMH: Anemia, Anxiety, Back Problems (herniated disc), Deep Vein Thrombosis, Fractures (rib, left shoulder, left hand 5th digit, humerus), Gastritis, Gall Bladder Disease (Cholelithiasis), Pancreatitis, Seizures, Chronic Pain (left shoulder) Denies: CHF, HIV, Hypercholesterolemia, Chronic Kidney Disease, Sexually Tra nsmitted Disease - Surgical History Surgical History: Endoscopy - Family History Family History: States: Unknown Family Hx - Immunization History Hx Tetanus Toxoid Vaccination: Yes Hx Influenza Vaccination: Yes Hx Pneumococcal Vaccination: Yes - Home Medications Home Medications: Ambulatory Orders Medication Instructions Recorded Lactulose [Enulose] 20 gm PO BID #40 udc 03/05/18 Pantoprazole [Protonix EC Tab] 40 mg PO DAILY #30 ect 03/05/18 Amoxicillin/Clavulanate [Augmentin 1 tab PO BID #14 tab 03/11/18 875 MG-125 MG] levETIRAcetam [Keppra] 500 mg PO Q12H #60 tab 03/13/18 Acetaminophen [Pain Reliever] 500 mg PO Q4 #30 tablet 03/21/18 Omeprazole 20 mg PO DAILY #30 capsule. 03/22/18 - Allergies Allergies/Adverse Reactions: Allergies Allergy/AdvReac Type Severity Reaction Status Date / Time aspirin Allergy NAUSEA Verified 03/25/18 16:55 ibuprofen [From Motrin] Allergy NAUSEA Verified 03/25/18 16:55 naproxen Allergy RASH Verified 03/25/18 16:55 NSAIDS (Non-Steroidal Allergy NAUSEA Verified 03/25/18 16:55 Anti-Inflamma Review of Systems ROS Statement: Except As Marked, All Systems Reviewed And Found Negative Neurological: Positive for: Headache (mild) Physical Exam - Reviewed Nursing Documentation Reviewed: Yes Vital Signs Reviewed: Yes - Physical Exam Appears: Positive for: No Acute Distress (disheveled) Head Exam: Positive for: ATRAUMATIC, NORMAL INSPECTION, NORMOCEPHALIC Skin: Positive for: Normal Color, Warm, Dry Eye Exam: Positive for: Normal appearance, EOMI, PERRL Neck: Positive for: Painless ROM Cardiovascular/Chest: Positive for: Regular Rate, Rhythm. Negative for: Murmur Respiratory: Positive for: Normal Breath Sounds. Negative for: Respiratory Distress Gastrointestinal/Abdominal: Positive for: Normal Exam, Soft. Negative for: Tenderness Back: Positive for: Normal Inspection. Negative for: Vertebral Tenderness Extremity: Positive for: Normal ROM (upper and lower extremities). Negative for: Deformity, Swelling Neurologic/Psych: Positive for: Alert, Oriented - ECG O2 Sat by Pulse Oximetry: 97 (RA) Pulse Ox Interpretation: Normal Medical Decision Making Medical Decision Making: Time: 02:22 A/P: 52 y/o male with mild headache Initial Plan: --Tylenol 325mg tab 650 mg PO --Discharge for followup as outpatient ----- Scribe Attestation: Documented by Giovany Puri, acting as a scribe for Murphy Chiu MD. Provider Scribe Attestation: All medical record entries made by the Scribe were at my direction and personally dictated by me. I have reviewed the chart and agree that the record accurately reflects my personal performance of the history, physical exam, medical decision making, and the department course for this patient. I have also personally directed, reviewed, and agree with the discharge instructions and disposition. Disposition - Clinical Impression Clinical Impression: Headache - Disposition Referrals: [facility] [place] [Outside] Disposition Time: 06:00 Condition: STABLE Instructions: Headache, Adult Forms: [facility] (Vietnamese)
== END 2018-03-26 06:35 | disposition home or self-care (01) ==
LOC: H.ER 01:39
DX: R51 Headache (principal); G40.909 Epilepsy, unspecified, not intractable, without status epilepticus

== ENCOUNTER 2018-03-28 02:14 | Emergency (ER) | payer MEDICAID ==
[2018-03-28 02:53] VITALS: BMI 24.0
--- NOTE | 2018-03-28 04:07 | ED PDOC ---
HPI: Seizure Time Seen by Provider: 03/28/18 02:36 Chief Complaint (Nursing): Seizure Chief Complaint (Provider): "seizure" 45 minutes [employer] History Per: Patient History/Exam Limitations: no limitations Recent Seizure Activity Began: Unknown Precipitating Factor(s): None Additional Complaint(s): 52 yo male presents 4 minutes after having a seizure. Pt states he has been taking keppra. Pt states he also is having rib pain, pt with previous rib fx. Pt denies alcohol abuse. Pt asking for sandwich in ER. Past Medical History Reviewed: Historical Data, Nursing Documentation, Vital Signs Vital Signs: Last Vital Signs Temp 98.9 F 03/28/18 02:53 Pulse 77 03/28/18 02:53 Resp 18 03/28/18 02:53 BP 143/89 03/28/18 02:53 Pulse Ox 100 03/28/18 02:53 - Medical History PMH: Anemia, Anxiety, Back Problems (herniated disc), Deep Vein Thrombosis, Fractures (rib, left shoulder, left hand 5th digit, humerus), Gastritis, Gall Bladder Disease (Cholelithiasis), Pancreatitis, Seizures, Chronic Pain (left shoulder) Denies: CHF, HIV, Hypercholesterolemia, Chronic Kidney Disease, Sexually Transmitted Disease - Surgical History Surgical History: Endoscopy - Family History Family History: States: Unknown Family Hx - Living Arrangements Living Arrangements: With Family - Social History Current smoker - smoking cessation education provided: No - Immunization History Hx Tetanus Toxoid Vaccination: Yes Hx Influenza Vaccination: Yes Hx Pneumococcal Vaccination: Yes - Home Medications Home Medications: Ambulatory Orders Medication Instructions Recorded Lactulose [Enulose] 20 gm PO BID #40 udc 03/05/18 Pantoprazole [Protonix EC Tab] 40 mg PO DAILY #30 ect 03/05/18 Amoxicillin/Clavulanate [Augmentin 1 tab PO BID #14 tab 03/11/18 875 MG-125 MG] levETIRAcetam [Keppra] 500 mg PO Q12H #60 tab 03/13/18 Acetaminophen [Pain Reliever] 500 mg PO Q4 #30 tablet 03/21/18 Omeprazole 20 mg PO DAILY #30 capsule. 03/22/18 - Allergies Allergies/Adverse Reactions: Allergies Allergy/AdvReac Type Severity Reaction Status Date / Time aspirin Allergy NAUSEA Verified 03/28/18 02:53 ibuprofen [From Motrin] Allergy NAUSEA Verified 03/28/18 02:53 naproxen Allergy RASH Verified 03/28/18 02:53 NSAIDS (Non-Steroidal Allergy NAUSEA Verified 03/28/18 02:53 Anti-Inflamma Review of Systems ROS Statement: Except As Marked, All Systems Reviewed And Found Negative Constitutional: Negative for: Fever, Chills Cardiovascular: Negative for: Chest Pain, Palpitations Respiratory: Negative for: Cough, Shortness of Breath Musculoskeletal: Negative for: Neck Pain, Shoulder Pain Neurological: Positive for: Seizures. Negative for: Altered Mental Status, Headache, Dizziness Physical Exam - Reviewed Nursing Documentation Reviewed: Yes Vital Signs Reviewed: Yes - Physical Exam Appears: Positive for: Well, Non-toxic, No Acute Distress Head Exam: Positive for: ATRAUMATIC, NORMAL INSPECTION, NORMOCEPHALIC Skin: Positive for: Normal Color, Warm, DRY Eye Exam: Positive for: Normal appearance ENT: Positive for: Normal ENT Inspection Neck: Positive for: Normal, Painless ROM Cardiovascular/Chest: Positive for: Regular Rate, Rhythm Respiratory: Positive for: Normal Breath Sounds. Negative for: Accessory Muscle Use, Respiratory Distress Back: Positive for: Normal Inspection Extremity: Positive for: Normal ROM Neurologic/Psych: Positive for: Alert, Oriented - ECG O2 Sat by Pulse Oximetry: 100 Disposition - Clinical Impression Clinical Impression: Seizure - Patient ED Disposition Is Patient to be Admitted: No Counseled Patient/Family Regarding: Diagnosis, Need For Followup - Disposition Referrals: [facility] [Outside] Disposition: Routine/Home Disposition Time: 04:11 Condition: STABLE Instructions: Seizures
[2018-03-28 05:43] VITALS: BP 128/71; PULSE 67; RESP 17; TEMP 97.6; O2SAT 98
== END 2018-03-28 04:34 | disposition home or self-care (01) ==
LOC: H.ER 02:14
DX: G40.909 Epilepsy, unspecified, not intractable, without status epilepticus (principal)

== ENCOUNTER 2018-03-28 23:40 | Emergency (ER) | payer MEDICAID ==
[2018-03-28 23:41] VITALS: BMI 24.0
[2018-03-28 23:48] VITALS: BP 117/53; PULSE 75; RESP 18; TEMP 97.5; O2SAT 97
--- NOTE | 2018-03-29 03:57 | ED PDOC ---
HPI: Seizure Time Seen by Provider: 03/28/18 23:55 Chief Complaint (Nursing): Seizure Chief Complaint (Provider): Seizure History Per: Patient History/Exam Limitations: no limitations Additional Complaint(s): Shreyas Dillon, a 52 year old male with past medical history of seizures, presents to the emergency department complaining of seizure. No further complaints. Past Medical History Reviewed: Historical Data, Nursing Documentation, Vital Signs Vital Signs: Last Vital Signs Temp 97.5 F L 03/28/18 23:44 Pulse 75 03/28/18 23:44 Resp 18 03/28/18 23:44 BP 117/53 L 03/28/18 23:44 Pulse Ox 97 03/28/18 23:44 - Medical History PMH: Anemia, Anxiety, Back Problems (herniated disc), Deep Vein Thrombosis, Fractures (rib, left shoulder, left hand 5th digit, humerus), Gastritis, Gall Bladder Disease (Cholelithiasis), Pancreatitis, Seizures, Chronic Pain (left shoulder) Denies: CHF, HIV, Hypercholesterolemia, Chronic Kidney Disease, Sexually Transmitted Disease - Surgical History Surgical History: Endoscopy - Family History Family History: States: Unknown Family Hx - Immunization History Hx Tetanus Toxoid Vaccination: Yes Hx Influenza Vaccination: Yes Hx Pneumococcal Vaccination: Yes - Home Medications Home Medications: Ambulatory Orders Medication Instructions Recorded RX: Lactulose [Enulose] 20 gm PO BID #40 udc 03/05/18 RX: Pantoprazole [Protonix EC Tab] 40 mg PO DAILY #30 ect 03/05/18 Amoxicillin/Clavulanate [Augmentin 1 tab PO BID #14 tab 03/11/18 875 MG-125 MG] RX: levETIRAcetam [Keppra] 500 mg PO Q12H #60 tab 03/13/18 RX: Acetaminophen [Pain Reliever] 500 mg PO Q4 #30 tablet 03/21/18 RX: Omeprazole 20 mg PO DAILY #30 capsule. 03/22/18 - Allergies Allergies/Adverse Reactions: Allergies Allergy/AdvReac Type Severity Reaction Status Date / Time aspirin Allergy NAUSEA Verified 03/30/18 14:28 ibuprofen [From Motrin] Allergy NAUSEA Verified 03/30/18 14:28 naproxen Allergy RASH Verified 03/30/18 14:28 NSAIDS (Non-Steroidal Allergy NAUSEA Verified 03/30/18 14:28 Anti-Inflamma Review of Systems ROS Statement: Except As Marked, All Systems Reviewed And Found Negative Physical Exam - Reviewed Nursing Documentation Reviewed: Yes Vital Signs Reviewed: Yes - Physical Exam Appears: Positive for: Well, Non-toxic, No Acute Distress Head Exam: Positive for: ATRAUMATIC, NORMAL INSPECTION, NORMOCEPHALIC Skin: Positive for: Normal Color, Warm, DRY Eye Exam: Positive for: EOMI, Normal appearance, PERRL ENT: Positive for: Normal ENT Inspection Neck: Positive for: Normal, Painless ROM Cardiovascular/Chest: Positive for: Regular Rate, Rhythm Respiratory: Positive for: CNT, Normal Breath Sounds Gastrointestinal/Abdominal: Positive for: Normal Exam, Soft Back: Positive for: Normal Inspection Extremity: Positive for: Normal ROM Neurologic/Psych: Positive for: Alert, Oriented - ECG O2 Sat by Pulse Oximetry: 97 (RA) Pulse Ox Interpretation: Normal Medical Decision Making Medical Decision Making: Time: 02:14 Initial Impression: Initial Plan: --Alcohol serum pt w elevated alchol level 5 am-6 am pt more awake, has no complaints at this time. alert and awake. stable gait, stable for dc Scribe Attestation: Documented by Justine Harding, acting as a scribe for Amanda Washington MD. Provider Scribe Attestation: All medical record entries made by the Scribe were at my direction and person ally dictated by me. I have reviewed the chart and agree that the record accurately reflects my personal performance of the history, physical exam, medical decision making, and the department course for this patient. I have also personally directed, reviewed, and agree with the discharge instructions and disposition. Disposition - Clinical Impression Clinical Impression: Alcohol abuse with intoxication - Patient ED Disposition Is Patient to be Admitted: No Counseled Patient/Family Regarding: Studies Performed, Diagnosis, Need For Followup - Disposition Disposition: Routine/Home Disposition Time: 05:00 Condition: IMPROVED Additional Instructions: follow up with your primary doctor in 1-2 days return to the ED with any worsening or concerning symptoms Instructions: Alcohol Abuse and Alcoholism (DC) Forms: [facility] (Greek)
== END 2018-03-29 06:25 | disposition home or self-care (01) ==
LOC: H.ER 23:40
DX: F10.129 Alcohol abuse with intoxication, unspecified (principal)

== ENCOUNTER 2018-03-29 10:50 | Emergency (ER) | payer MEDICAID ==
[2018-03-29 10:50] VITALS: BMI 24.0
--- NOTE | 2018-03-29 14:00 | RAD ---
Date of service: 03/29/2018 HISTORY: cough COMPARISON: 03/02/2018. TECHNIQUE: Chest PA and lateral FINDINGS: LUNGS: No active pulmonary disease. PLEURA: No significant pleural effusion identified. No pneumothorax apparent. CARDIOVASCULAR: No radiographic findings to suggest acute or significant cardiovascular disease. OSSEOUS STRUCTURES: No significant abnormalities. VISUALIZED UPPER ABDOMEN: Normal. OTHER FINDINGS: None. IMPRESSION: No active disease. No significant interval change compared to the prior examination(s).
[2018-03-29 14:09] VITALS: BP 111/63; PULSE 82; RESP 20; TEMP 98.6; O2SAT 100
--- NOTE | 2018-03-29 15:06 | ED PDOC ---
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 However, he did state taking his Keppra today. Denies LOC. Of note, patient is also requesting food. PMD: none provided Past Medical History Reviewed: Historical Data, Nursing Documentation, Vital Signs Vital Signs: Last Vital Signs Temp 98.6 F 03/29/18 14:08 Pulse 82 03/29/18 14:08 Resp 20 03/29/18 14:08 BP 111/63 03/29/18 14:08 Pulse Ox 100 03/29/18 14:08 - Medical History PMH: Anemia, Anxiety, Back Problems (herniated disc), Deep Vein Thrombosis, Fractures (rib, left shoulder, left hand 5th digit, humerus), Gastritis, Gall Bladder Disease (Cholelithiasis), Pancreatitis, Seizures, Chronic Pain (left shoulder) Denies: CHF, HIV, Hypercholesterolemia, Chronic Kidney Disease, Sexually Transmitted Disease - Surgical History Surgical History: Endoscopy - Family History Family History: States: Unknown Family Hx - Social History Ex-Smoker (has not smoked in the last 12 months): Yes Alcohol: Other (hx alcohol abuse) Drugs: Denies - Immunization History Hx Tetanus Toxoid Vaccination: Yes Hx Influenza Vaccination: Yes Hx Pneumococcal Vaccination: Yes - Home Medications Home Medications: Ambulatory Orders Medication Instructions Recorded Lactulose [Enulose] 20 gm PO BID #40 udc 03/05/18 Pantoprazole [Protonix EC Tab] 40 mg PO DAILY #30 ect 03/05/18 Amoxicillin/Clavulanate [Augmentin 1 tab PO BID #14 tab 03/11/18 875 MG-125 MG] levETIRAcetam [Keppra] 500 mg PO Q12H #60 tab 03/13/18 Acetaminophen [Pain Reliever] 500 mg PO Q4 #30 tablet 03/21/18 Omeprazole 20 mg PO DAILY #30 capsule. 03/22/18 - Allergies Allergies/Adverse Reactions: Allergies Allergy/AdvReac Type Severity Reaction Status Date / Time aspirin Allergy NAUSEA Verified 03/28/18 02:53 ibuprofen [From Motrin] Allergy NAUSEA Verified 03/28/18 02:53 naproxen Allergy RASH Verified 03/28/18 02:53 NSAIDS (Non-Steroidal Allergy NAUSEA Verified 03/28/18 02:53 Anti-Inflamma Review of Systems ROS Statement: Except As Marked, All Systems Reviewed And Found Negative Cardiovascular: Positive for: Chest Pain (right side) Neurological: Positive for: Seizures, Altered Mental Status (possible). Negat pérez for: Other (loss of consciousness) Physical Exam - Reviewed Nursing Documentation Reviewed: Yes Vital Signs Reviewed: Yes - Physical Exam Appears: Positive for: No Acute Distress Head Exam: Positive for: ATRAUMATIC, NORMOCEPHALIC Skin: Positive for: Normal Color, Warm, Dry. Negative for: Rash Eye Exam: Positive for: Normal appearance ENT: Positive for: Normal ENT Inspection Neck: Positive for: Normal, Painless ROM, Supple Cardiovascular/Chest: Positive for: Regular Rate, Rhythm, Chest Non Tender (no ecchymosis) Respiratory: Positive for: Normal Breath Sounds. Negative for: Respiratory Distress Gastrointestinal/Abdominal: Positive for: Normal Exam, Soft. Negative for: Tenderness, Other (ecchymosis) Back: Positive for: Normal Inspection Extremity: Positive for: Normal ROM Neurologic/Psych: Positive for: Alert, Oriented (x3), Gait (steady). Negative for: Other (slurred speech, alcohol on breath) - ECG O2 Sat by Pulse Oximetry: 100 (RA) Pulse Ox Interpretation: Normal Medical Decision Making Medical Decision Making: Time: 1200 Initial Impression: possible seizure Initial Plan: --CXR --Accucheck 1357 CXR: NAD POC Glucose: 140 1400 Pt is stable for d/c at this time. Advised to follow up at the [facility] or to the ED with worsening symptoms. Scribe Attestation: Documented by Meryl Mahoney, acting as a scribe for Lincoln Olivier PA-C Provider Scribe Attestation: All medical record entries made by the Scribe were at my direction and personally dictated by me. I have reviewed the chart and agree that the record accurately reflects my personal performance of the history, physical exam, medical decision making, and the department course for this patient. I have also personally directed, reviewed, and agree with the discharge instructions and disposition. Disposition - Clinical Impression Clinical Impression: Seizure, Chest wall contusion - Patient ED Disposition Is Patient to be Admitted: No - Disposition Referrals: [facility] [Outside] Disposition: Routine/Home Disposition Time: 14:00 Condition: STABLE Additional Instructions: KINDRA MARTINI, thank you for letting us take care of you today. Your provider was Brody Lu III, DO and you were treated for FALL. The emergency medical care you received today was directed at your acute symptoms. If you were prescribed any medication, please fill it and take as directed. It may take several days for your symptoms to resolve. Return to the Emergency Department if your symptoms worsen, do not improve, or if you have any other problems. Please contact your doctor or call one of the physicians/clinics you have been referred to that are listed on the Patient Visit Information form that is included in your discharge packet. Bring any paperwork you were given at discharge with you along with any medications you are taking to your follow up visit. Our treatment cannot replace ongoing medical care by a primary care provider outside of the emergency department. Thank you for allowing the [facility] team to be part of your care today. If you had an X-Ray or CT scan: A Radiologist will review the ED reading if any change in treatment is needed we will contact you. If you had a blood, urine, or wound culture: It will take several days for the results, if any change in treatment is needed we will contact you. If you had an STI test: It will take 48 hours for the results. Please call after 1 week if you have not heard back. Instructions: Seizures, Adult (DC), Contusion (DC) Forms: [employer] (Dominican)
== END 2018-03-29 15:30 | disposition home or self-care (01) ==
LOC: H.ER 10:50
DX: R56.9 Unspecified convulsions (principal); S20.219A Contusion of unspecified front wall of thorax, initial encounter; G89.29 Other chronic pain; Z86.718 Personal history of other venous thrombosis and embolism; Z87.891 Personal history of nicotine dependence; Z88.6 Allergy status to analgesic agent

== ENCOUNTER 2018-03-30 14:21 | Emergency (ER) | payer MEDICAID ==
[2018-03-30 14:22] VITALS: BMI 24.0
[2018-03-30 14:29] VITALS: BP 137/75; PULSE 109; RESP 20; TEMP 98.7; O2SAT 100
--- NOTE | 2018-03-30 15:02 | ED PDOC ---
HPI: Seizure Time Seen by Provider: 03/30/18 14:27 Chief Complaint (Nursing): Seizure Chief Complaint (Provider): FALL/HEAD INJURY/SEIZURE History Per: Patient (52 Y/O MALE WELL KNOWN TO ED H/O ALCOHOL ABUSE HERE FOR EVALUATION OF SEIZURE. NO LOC NOTED. TOOK KEPPRA TODAY.) Past Medical History Reviewed: Historical Data, Nursing Documentation, Vital Signs Vital Signs: Last Vital Signs Temp 98.7 F 03/30/18 14:26 Pulse 109 H 03/30/18 14:26 Resp 20 03/30/18 14:26 BP 137/75 03/30/18 14:26 Pulse Ox 100 03/30/18 14:26 - Medical History PMH: Anemia, Anxiety, Back Problems (herniated disc), Deep Vein Thrombosis, Fractures (rib, left shoulder, left hand 5th digit, humerus), Gastritis, Gall Bladder Disease (Cholelithiasis), Pancreatitis, Seizures, Chronic Pain (left shoulder) Denies: CHF, HIV, Hypercholesterolemia, Chronic Kidney Disease, Sexually Transmitted Disease - Surgical History Surgical History: Endoscopy - Family History Family History: States: Unknown Family Hx - Immunization History Hx Tetanus Toxoid Vaccination: Yes Hx Influenza Vaccination: Yes Hx Pneumococcal Vaccination: Yes - Home Medications Home Medications: Ambulatory Orders Medication Instructions Recorded Lactulose [Enulose] 20 gm PO BID #40 udc 03/05/18 Pantoprazole [Protonix EC Tab] 40 mg PO DAILY #30 ect 03/05/18 Amoxicillin/Clavulanate [Augmentin 1 tab PO BID #14 tab 03/11/18 875 MG-125 MG] levETIRAcetam [Keppra] 500 mg PO Q12H #60 tab 03/13/18 Acetaminophen [Pain Reliever] 500 mg PO Q4 #30 tablet 03/21/18 Omeprazole 20 mg PO DAILY #30 capsule. 03/22/18 - Allergies Allergies/Adverse Reactions: Allergies Allergy/AdvReac Type Severity Reaction Status Date / Time aspirin Allergy NAUSEA Verified 03/30/18 14:28 ibuprofen [From Motrin] Allergy NAUSEA Verified 03/30/18 14:28 naproxen Allergy RASH Verified 03/30/18 14:28 NSAIDS (Non-Steroidal Allergy NAUSEA Verified 03/30/18 14:28 Anti-Inflamma Review of Systems ROS Statement: Except As Marked, All Systems Reviewed And Found Negative Physical Exam - Reviewed Nursing Documentation Reviewed: Yes Vital Signs Reviewed: Yes - Physical Exam Appears: Positive for: Well, Non-toxic, No Acute Distress Head Exam: Positive for: ATRAUMATIC, NORMAL INSPECTION, NORMOCEPHALIC Skin: Positive for: Normal Color, Warm, DRY Eye Exam: Positive for: EOMI, Normal appearance, PERRL ENT: Positive for: Normal ENT Inspection Neck: Positive for: Normal, Painless ROM Cardiovascular/Chest: Positive for: Regular Rate, Rhythm Respiratory: Positive for: CNT, Normal Breath Sounds Gastrointestinal/Abdominal: Positive for: Normal Exam, Soft Back: Positive for: Normal Inspection Extremity: Positive for: Normal ROM Neurologic/Psych: Positive for: Alert, Oriented - ECG O2 Sat by Pulse Oximetry: 100 Disposition - Clinical Impression Clinical Impression: Tonic seizure - Patient ED Disposition Is Patient to be Admitted: No - Disposition Disposition: Routine/Home Disposition Time: 15:43 Condition: FAIR Forms: [employer] (Telugu)
== END 2018-03-30 15:25 | disposition home or self-care (01) ==
LOC: H.ER 14:21
DX: G40.309 Generalized idiopathic epilepsy and epileptic syndromes, not intractable, without status epilepticus (principal); S09.90XA Unspecified injury of head, initial encounter; W19.XXXA Unspecified fall, initial encounter; Y92.89 Other specified places as the place of occurrence of the external cause

== ENCOUNTER 2018-03-31 04:55 | Emergency (ER) | payer MEDICAID ==
[2018-03-31 04:55] VITALS: BMI 24.0
[2018-03-31 05:10] VITALS: BP 116/59; PULSE 88; RESP 18; TEMP 98.9; O2SAT 100
--- NOTE | 2018-03-31 05:32 | ED PDOC ---
HPI: General Adult Time Seen by Provider: 03/31/18 05:03 Chief Complaint (Nursing): Seizure Chief Complaint (Provider): Seizure History Per: Patient History/Exam Limitations: no limitations Onset/Duration Of Symptoms: Hrs (00:05) Additional Complaint(s): Shreyas Sepulveda is a 52 year old male, with a past medical history of seizure disorder, who was walked over from the park to the emergency department by Daniela SCOTT for seizure at 00:05. Patient is well known to ED staff and provider for multiple visits. He denies any other medical complaints. PMD: None provided. Past Medical History Reviewed: Historical Data, Nursing Documentation, Vital Signs Vital Signs: Last Vital Signs Temp 98.9 F 03/31/18 04:57 Pulse 88 03/31/18 04:57 Resp 18 03/31/18 04:57 BP 116/59 L 03/31/18 04:57 Pulse Ox 100 03/31/18 04:57 - Medical History PMH: Anemia, Anxiety, Back Problems (herniated disc), Deep Vein Thrombosis, Fractures (rib, left shoulder, left hand 5th digit, humerus), Gastritis, Gall Bladder Disease (Cholelithiasis), Pancreatitis, Seizures, Chronic Pain (left shoulder) Denies: CHF, HIV, Hypercholesterolemia, Chronic Kidney Disease, Sexually Transmitted Disease - Surgical History Surgical History: Endoscopy - Family History Family History: States: Unknown Family Hx - Immunization History Hx Tetanus Toxoid Vaccination: Yes Hx Influenza Vaccination: Yes Hx Pneumococcal Vaccination: Yes - Home Medications Home Medications: Ambulatory Orders Medication Instructions Recorded Lactulose [Enulose] 20 gm PO BID #40 udc 03/05/18 Pantoprazole [Protonix EC Tab] 40 mg PO DAILY #30 ect 03/05/18 Amoxicillin/Clavulanate [Augmentin 1 tab PO BID #14 tab 03/11/18 875 MG-125 MG] levETIRAcetam [Keppra] 500 mg PO Q12H #60 tab 03/13/18 Acetaminophen [Pain Reliever] 500 mg PO Q4 #30 tablet 03/21/18 Omeprazole 20 mg PO DAILY #30 capsule. 03/22/18 - Allergies Allergies/Adverse Reactions: Allergies Allergy/AdvReac Type Severity Reaction Status Date / Time aspirin Allergy NAUSEA Verified 03/30/18 14:28 ibuprofen [From Motrin] Allergy NAUSEA Verified 03/30/18 14:28 naproxen Allergy RASH Verified 03/30/18 14:28 NSAIDS (Non-Steroidal Allergy NAUSEA Verified 03/30/18 14:28 Anti-Inflamma Review of Systems ROS Statement: Except As Marked, All Systems Reviewed And Found Negative Neurological: Positive for: Seizures Physical Exam - Reviewed Nursing Documentation Reviewed: Yes Vital Signs Reviewed: Yes - Physical Exam Appears: Positive for: No Acute Distress Head Exam: Positive for: ATRAUMATIC, NORMAL INSPECTION, NORMOCEPHALIC Skin: Positive for: Normal Color, Warm, Dry Eye Exam: Positive for: Normal appearance, EOMI, PERRL Neck: Positive for: Painless ROM Cardiovascular/Chest: Positive for: Regular Rate, Rhythm. Negative for: Murmur Respiratory: Positive for: Normal Breath Sounds. Negative for: Respiratory Distress Gastrointestinal/Abdominal: Positive for: Normal Exam, Soft. Negative for: Tenderness Back: Positive for: Normal Inspection. Negative for: Vertebral Tenderness Extremity: Positive for: Normal ROM (upper and lower extremities). Negative for: Deformity, Swelling Neurologic/Psych: Positive for: Alert, Oriented - ECG O2 Sat by Pulse Oximetry: 100 (RA) Pulse Ox Interpretation: Normal Medical Decision Making Medical Decision Making: Time:05:03 Initial Impression: Malingering Initial Plan: 05:30 Upon provider reevaluation patient is feeling better, is medically stable, and requires no further treatment in the ED at this time. Patient will be discharged. Counseling was provided and all questions were answered regarding diagnosis*. There is agreement to discharge plan. Return if symptoms persist or worsen. ----- Scribe Attestation: Documented by Giovany Puri, acting as a scribe for Olaf Fernandez MD. Provider Scribe Attestation: All medical record entries made by the Scribe were at my direction and personally dictated by me. I have reviewed the chart and agree that the record accurately reflects my personal performance of the history, physical exam, medical decision making, and the department course for this patient. I have also personally directed, reviewed, and agree with the discharge instructions and disposition. Disposition - Clinical Impression Clinical Impression: Malingering - Disposition Disposition: Routine/Home Disposition Time: 05:30 Condition: STABLE Instructions: Seizures, Adult (DC)
== END 2018-03-31 06:35 | disposition home or self-care (01) ==
LOC: H.ER 04:55
DX: Z76.5 Malingerer [conscious simulation] (principal)

== ENCOUNTER 2018-03-31 13:55 | Emergency (ER) | payer MEDICAID ==
[2018-03-31 13:56] VITALS: BMI 24.0
[2018-03-31 14:01] VITALS: BP 111/55; PULSE 106; RESP 16; TEMP 98.7; O2SAT 98
--- NOTE | 2018-03-31 16:33 | ED PDOC ---
HPI: Seizure Time Seen by Provider: 03/31/18 14:16 Chief Complaint (Nursing): Seizure Chief Complaint (Provider): Seizure History Per: Patient History/Exam Limitations: no limitations Additional Complaint(s): 52yo male, brought to ER by EMS for evaluation of an unwitnessed seizure, occurring prior to arrival. Patient is well known to ED staff and provider for multiple visits. Patient is currently awake, alert and offers no medical complaints. Past Medical History Reviewed: Historical Data, Nursing Documentation, Vital Signs Vital Signs: Last Vital Signs Temp 98.7 F 03/31/18 13:59 Pulse 106 H 03/31/18 13:59 Resp 16 03/31/18 13:59 BP 111/55 L 03/31/18 13:59 Pulse Ox 98 03/31/18 13:59 - Medical History PMH: Anemia, Anxiety, Back Problems (herniated disc), Deep Vein Thrombosis, Fractures (rib, left shoulder, left hand 5th digit, humerus), Gastritis, Gall Bladder Disease (Cholelithiasis), Pancreatitis, Seizures, Chronic Pain (left shoulder) Denies: CHF, HIV, Hypercholesterolemia, Chronic Kidney Disease, Sexually Transmitted Disease - Surgical History Surgical History: Endoscopy - Family History Family History: States: Unknown Family Hx - Immunization History Hx Tetanus Toxoid Vaccination: Yes Hx Influenza Vaccination: Yes Hx Pneumococcal Vaccination: Yes - Home Medications Home Medications: Ambulatory Orders Medication Instructions Recorded Lactulose [Enulose] 20 gm PO BID #40 udc 03/05/18 Pantoprazole [Protonix EC Tab] 40 mg PO DAILY #30 ect 03/05/18 Amoxicillin/Clavulanate [Augmentin 1 tab PO BID #14 tab 03/11/18 875 MG-125 MG] levETIRAcetam [Keppra] 500 mg PO Q12H #60 tab 03/13/18 Acetaminophen [Pain Reliever] 500 mg PO Q4 #30 tablet 03/21/18 Omeprazole 20 mg PO DAILY #30 capsule. 03/22/18 - Allergies Allergies/Adverse Reactions: Allergies Allergy/AdvReac Type Severity Reaction Status Date / Time aspirin Allergy NAUSEA Verified 03/31/18 13:59 ibuprofen [From Motrin] Allergy NAUSEA Verified 03/31/18 13:59 naproxen Allergy RASH Verified 03/31/18 13:59 NSAIDS (Non-Steroidal Allergy NAUSEA Verified 03/31/18 13:59 Anti-Inflamma Review of Systems ROS Statement: Except As Marked, All Systems Reviewed And Found Negative Constitutional: Negative for: Fever, Chills Cardiovascular: Negative for: Chest Pain Respiratory: Negative for: Shortness of Breath Gastrointestinal: Negative for: Vomiting Genitourinary Male: Negative for: Incontinence Neurological: Positive for: Seizures. Negative for: Weakness, Numbness Physical Exam - Reviewed Nursing Documentation Reviewed: Yes Vital Signs Reviewed: Yes - Physical Exam Appears: Positive for: No Acute Distress Head Exam: Positive for: ATRAUMATIC, NORMAL INSPECTION, NORMOCEPHALIC Skin: Positive for: Normal Color Eye Exam: Positive for: Normal appearance, EOMI, PERRL Neck: Positive for: Normal, Supple Cardiovascular/Chest: Positive for: Regular Rate, Rhythm Respiratory: Positive for: Normal Breath Sounds Gastrointestinal/Abdominal: Positive for: Normal Exam, Soft Back: Positive for: Normal Inspection Extremity: Positive for: Normal ROM Neurologic/Psych: Positive for: Alert, Oriented. Negative for: Motor/Sensory Deficits - ECG O2 Sat by Pulse Oximetry: 98 (RA) Pulse Ox Interpretation: Normal Medical Decision Making Medical Decision Makinyo male, well known to ER for multiple visits due to seizures. -- Glucose POC Patient to be observed in ER for signs of seizure like activity. Scribe Attestation: Documented by Kajal Chakraborty, acting as a scribe for Brody Lu DO. Provider Scribe Attestation: All medical record entries made by the Scribe were at my direction and personally dictated by me. I have reviewed the chart and agree that the record accurately reflects my personal performance of the history, physical exam, medical decision making, and the department course for this patient. I have also personally directed, reviewed, and agree with the discharge instructions and disposition. Disposition - Disposition
== END 2018-03-31 17:00 | disposition left against medical advice (07) ==
LOC: H.ER 13:55
DX: R56.9 Unspecified convulsions (principal)

== ENCOUNTER 2018-03-31 17:16 | Emergency (ER) | payer MEDICAID ==
[2018-03-31 17:16] VITALS: BMI 24.0
[2018-03-31 17:22] VITALS: BP 141/68; PULSE 97; RESP 16; TEMP 98.9; O2SAT 95
== END 2018-03-31 18:07 | disposition left against medical advice (07) ==
LOC: H.ER 17:16
DX: Z02.89 Encounter for other administrative examinations (principal)

== ENCOUNTER 2018-04-01 02:29 | Emergency (ER) | payer MEDICAID ==
[2018-04-01 02:29] VITALS: BMI 24.0
[2018-04-01 02:42] VITALS: BP 130/79; PULSE 92; RESP 16; TEMP 96.8; O2SAT 98
--- NOTE | 2018-04-01 02:53 | ED PDOC ---
HPI: General Adult Time Seen by Provider: 04/01/18 02:38 Chief Complaint (Nursing): Seizure Chief Complaint (Provider): seizure History Per: Patient History/Exam Limitations: no limitations Onset/Duration Of Symptoms: Mins (x20) Additional Complaint(s): Shreyas Sepulveda is a 52 year old male, with a past medical history of seizure disorder, who presents to the emergency department stating he had an unwitnessed seizure x20 min prior to arrival. Patient is non domicile, well known to ED staff and provider for multiple visits and bed seeking behavior. Patient denies any medical complaints at this time. PMD: None provided. Past Medical History Reviewed: Historical Data, Nursing Documentation, Vital Signs Vital Signs: Last Vital Signs Temp 96.8 F L 04/01/18 02:40 Pulse 92 H 04/01/18 02:40 Resp 16 04/01/18 02:40 BP 130/79 04/01/18 02:40 Pulse Ox 98 04/01/18 02:40 - Medical History PMH: Anemia, Anxiety, Back Problems (herniated disc), Deep Vein Thrombosis, Fractures (rib, left shoulder, left hand 5th digit, humerus), Gastritis, Gall Bladder Disease (Cholelithiasis), Pancreatitis, Seizures, Chronic Pain (left shoulder) Denies: CHF, HIV, Hypercholesterolemia, Chronic Kidney Disease, Sexually Transmitted Disease - Surgical History Surgical History: Endoscopy - Family History Family History: States: Unknown Family Hx - Immunization History Hx Tetanus Toxoid Vaccination: Yes Hx Influenza Vaccination: Yes Hx Pneumococcal Vaccination: Yes - Home Medications Home Medications: Ambulatory Orders Medication Instructions Recorded Lactulose [Enulose] 20 gm PO BID #40 udc 03/05/18 Pantoprazole [Protonix EC Tab] 40 mg PO DAILY #30 ect 03/05/18 Amoxicillin/Clavulanate [Augmentin 1 tab PO BID #14 tab 03/11/18 875 MG-125 MG] levETIRAcetam [Keppra] 500 mg PO Q12H #60 tab 03/13/18 Acetaminophen [Pain Reliever] 500 mg PO Q4 #30 tablet 03/21/18 Omeprazole 20 mg PO DAILY #30 capsule. 03/22/18 - Allergies Allergies/Adverse Reactions: Allergies Allergy/AdvReac Type Severity Reaction Status Date / Time aspirin Allergy NAUSEA Verified 04/01/18 02:40 ibuprofen [From Motrin] Allergy NAUSEA Verified 04/01/18 02:40 naproxen Allergy RASH Verified 04/01/18 02:40 NSAIDS (Non-Steroidal Allergy NAUSEA Verified 04/01/18 02:40 Anti-Inflamma Review of Systems ROS Statement: Except As Marked, All Systems Reviewed And Found Negative Neurological: Positive for: Seizures Physical Exam - Reviewed Nursing Documentation Reviewed: Yes Vital Signs Reviewed: Yes - Physical Exam Appears: Positive for: No Acute Distress Head Exam: Positive for: ATRAUMATIC, NORMAL INSPECTION, NORMOCEPHALIC Skin: Positive for: Normal Color, Warm, Dry Eye Exam: Positive for: EOMI, Normal appearance, PERRL Neck: Positive for: Painless ROM Cardiovascular/Chest: Positive for: Regular Rate, Rhythm. Negative for: Murmur Respiratory: Positive for: Normal Breath Sounds. Negative for: Respiratory Distress Gastrointestinal/Abdominal: Positive for: Normal Exam, Soft. Negative for: Tenderness Back: Positive for: Normal Inspection. Negative for: Vertebral Tenderness Extremity: Positive for: Normal ROM (upper and lower extremities). Negative for: Deformity, Swelling Neurologic/Psych: Positive for: Alert, Oriented (x3), Gait (steady) - ECG O2 Sat by Pulse Oximetry: 98 (RA) Pulse Ox Interpretation: Normal Medical Decision Making Medical Decision Making: Time: 02:38 Initial Impression: Malingering Initial Plan: --Reevaluation 04:35 Patient is medically stable for discharge and requires no further treatment in the ED at this time. Diagnosis of malingering. Scribe Attestation: Documented by Giovany Puri, acting as a scribe for Olaf Fernandez MD. Provider Scribe Attestation: All medical record entries made by the Scribe were at my direction and personally dictated by me. I have reviewed the chart and agree that the record accurately reflects my personal performance of the history, physical exam, medical decision making, and the department course for this patient. I have also personally directed, reviewed, and agree with the discharge instructions and disposition. Disposition - Clinical Impression Clinical Impression: Malingering - Disposition Disposition: Routine/Home Disposition Time: 04:35 Condition: STABLE Forms: [employer] (Wolof)
== END 2018-04-01 06:20 | disposition home or self-care (01) ==
LOC: H.ER 02:29
DX: Z76.5 Malingerer [conscious simulation] (principal)

== ENCOUNTER 2018-04-01 19:43 | Emergency (ER) | payer MEDICAID ==
[2018-04-01 19:43] VITALS: BMI 24.0
--- NOTE | 2018-04-01 20:14 | ED PDOC ---
HPI: General Adult Time Seen by Provider: 04/01/18 19:51 Chief Complaint (Nursing): Seizure Chief Complaint (Provider): etoh, seizure History Per: Patient, EMS Additional Complaint(s): 52-year-old male well-known to emergency department presents acutely intoxicated. EMS states that a bystander contacted them after patient had a witnessed seizure. Upon arrival patient is intoxicated but arousable. Past Medical History Reviewed: Historical Data, Nursing Documentation, Vital Signs Vital Signs: Last Vital Signs Temp 98.1 F 04/01/18 19:49 Pulse 79 04/01/18 19:49 Resp 18 04/01/18 19:49 BP 121/68 04/01/18 19:49 Pulse Ox 100 04/01/18 19:49 - Medical History PMH: Anemia, Anxiety, Back Problems (herniated disc), Deep Vein Thrombosis, Fractures (rib, left shoulder, left hand 5th digit, humerus), Gastritis, Gall Bladder Disease (Cholelithiasis), Seizures, Chronic Pain (left shoulder) - Surgical History Surgical History: Endoscopy - Family History Family History: States: No Known Family Hx - Living Arrangements Living Arrangements: With Family - Social History Current smoker - smoking cessation education provided: Yes Alcohol: > 2 Drinks/Day Drugs: Denies - Home Medications Home Medications: Ambulatory Orders Medication Instructions Recorded Lactulose [Enulose] 20 gm PO BID #40 udc 03/05/18 Pantoprazole [Protonix EC Tab] 40 mg PO DAILY #30 ect 03/05/18 Amoxicillin/Clavulanate [Augmentin 1 tab PO BID #14 tab 03/11/18 875 MG-125 MG] levETIRAcetam [Keppra] 500 mg PO Q12H #60 tab 03/13/18 Acetaminophen [Pain Reliever] 500 mg PO Q4 #30 tablet 03/21/18 Omeprazole 20 mg PO DAILY #30 capsule. 03/22/18 - Allergies Allergies/Adverse Reactions: Allergies Allergy/AdvReac Type Severity Reaction Status Date / Time aspirin Allergy NAUSEA Verified 04/01/18 19:49 ibuprofen [From Motrin] Allergy NAUSEA Verified 04/01/18 19:49 naproxen Allergy RASH Verified 04/01/18 19:49 NSAIDS (Non-Steroidal Allergy NAUSEA Verified 04/01/18 19:49 Anti-Inflamma Review of Systems ROS Statement: Except As Marked, All Systems Reviewed And Found Negative Neurological: Positive for: Seizures Psych: Positive for: Other (etoh) Physical Exam - Reviewed Nursing Documentation Reviewed: Yes Vital Signs Reviewed: Yes - Physical Exam Appears: Positive for: Well, Non-toxic, No Acute Distress Skin: Positive for: Normal Color. Negative for: Rash Eye Exam: Positive for: Normal appearance Cardiovascular/Chest: Positive for: Regular Rate, Rhythm Respiratory: Positive for: Normal Breath Sounds. Negative for: Wheezing, Respiratory Distress Extremity: Positive for: Normal ROM Neurologic/Psych: Positive for: Other (Intoxicated, arousable to painful stimuli) - ECG O2 Sat by Pulse Oximetry: 100 Pulse Ox Interpretation: Normal Medical Decision Making Medical Decision Makin:00 52-year-old intoxicated male Glucose POC: 122 21:55: Patient is ambulatory with steady gait, tolerated food in ED, he is stable for discharge. Disposition - Clinical Impression Clinical Impression: Alcohol intoxication - Patient ED Disposition Is Patient to be Admitted: No - Disposition Referrals: [facility] [Outside] Disposition: Routine/Home Disposition Time: 23:00 Condition: STABLE Instructions: Alcohol Abuse and Alcoholism (DC) Forms: [employer] (Hungarian)
[2018-04-02 00:04] VITALS: BP 118/78; PULSE 82; RESP 16; TEMP 98; O2SAT 98
== END 2018-04-02 00:06 | disposition home or self-care (01) ==
LOC: H.ER 19:43
DX: F10.129 Alcohol abuse with intoxication, unspecified (principal)

== ENCOUNTER 2018-04-02 14:00 | Emergency (ER) | payer MEDICAID ==
[2018-04-02 14:01] VITALS: BMI 24.0
[2018-04-02 14:11] VITALS: BP 159/67; PULSE 69; RESP 16; TEMP 97.1; O2SAT 99
--- NOTE | 2018-04-02 14:33 | ED PDOC ---
HPI: Psych/Substance Abuse Time Seen by Provider: 04/02/18 14:17 Chief Complaint (Nursing): Alcohol Ingestion Chief Complaint (Provider): etoh History Per: Patient, EMS Additional Complaint(s): 52-year-old male presents to emergency department acutely intoxicated. Patient was at the park when his knees buckled and he almost fell. He did not hit his head or pass out. Bystander call police and patient arrives via ambulance. Patient admit drinking today. He denies any seizure activity today and states that he took his Keppra dose this morning. Past Medical History Reviewed: Historical Data, Nursing Documentation, Vital Signs Vital Signs: Last Vital Signs Temp 97.1 F L 04/02/18 14:08 Pulse 69 04/02/18 14:08 Resp 16 04/02/18 14:08 BP 159/67 H 04/02/18 14:08 Pulse Ox 99 04/02/18 14:08 - Medical History PMH: Anemia, Anxiety, Back Problems (herniated disc), Fractures (rib, left zandra ulder, left hand 5th digit, humerus), Gastritis, Gall Bladder Disease (Cholelithiasis), Seizures, Chronic Pain (left shoulder) Denies: Sexually Transmitted Disease - Surgical History Surgical History: Endoscopy - Family History Family History: States: No Known Family Hx - Living Arrangements Living Arrangements: With Family - Social History Current smoker - smoking cessation education provided: Yes Alcohol: > 2 Drinks/Day Drugs: Denies - Home Medications Home Medications: Ambulatory Orders Medication Instructions Recorded Lactulose [Enulose] 20 gm PO BID #40 udc 03/05/18 Pantoprazole [Protonix EC Tab] 40 mg PO DAILY #30 ect 03/05/18 Amoxicillin/Clavulanate [Augmentin 1 tab PO BID #14 tab 03/11/18 875 MG-125 MG] levETIRAcetam [Keppra] 500 mg PO Q12H #60 tab 03/13/18 Acetaminophen [Pain Reliever] 500 mg PO Q4 #30 tablet 03/21/18 Omeprazole 20 mg PO DAILY #30 capsule. 03/22/18 - Allergies Allergies/Adverse Reactions: Allergies Allergy/AdvReac Type Severity Reaction Status Date / Time aspirin Allergy NAUSEA Verified 04/01/18 19:49 ibuprofen [From Motrin] Allergy NAUSEA Verified 04/01/18 19:49 naproxen Allergy RASH Verified 04/01/18 19:49 NSAIDS (Non-Steroidal Allergy NAUSEA Verified 04/01/18 19:49 Anti-Inflamma Review of Systems ROS Statement: Except As Marked, All Systems Reviewed And Found Negative Psych: Positive for: Other (etoh) Physical Exam - Reviewed Nursing Documentation Reviewed: Yes Vital Signs Reviewed: Yes - Physical Exam Appears: Positive for: Well, Non-toxic, No Acute Distress Skin: Positive for: Normal Color. Negative for: Rash Eye Exam: Positive for: Normal appearance Cardiovascular/Chest: Positive for: Regular Rate, Rhythm Respiratory: Positive for: Normal Breath Sounds. Negative for: Wheezing, Respiratory Distress Extremity: Positive for: Normal ROM Neurologic/Psych: Positive for: Alert, Oriented, Gait (steady with walker that he uses at baseline) - ECG O2 Sat by Pulse Oximetry: 99 Pulse Ox Interpretation: Normal Medical Decision Making Medical Decision Makin52 y/o intoxicated male Glucose POC: 85 Patient tolerated tray of food. He is awake, alert with steady gait. Stable for discharge. Disposition - Clinical Impression Clinical Impression: Alcohol abuse with intoxication - Disposition Referrals: [facility] [Outside] Disposition: Routine/Home Disposition Time: 15:00 Condition: STABLE Additional Instructions: TAKE YOUR KEPPRA DOSES DAILY DIRECTED. Instructions: Alcohol Abuse and Alcoholism (DC) Forms: [employer] ([place] Citizen)
== END 2018-04-02 15:04 | disposition home or self-care (01) ==
LOC: H.ER 14:00
DX: F10.129 Alcohol abuse with intoxication, unspecified (principal); F17.200 Nicotine dependence, unspecified, uncomplicated; G89.29 Other chronic pain; Z88.6 Allergy status to analgesic agent

== ENCOUNTER 2018-04-02 18:56 | Emergency (ER) | payer MEDICAID ==
[2018-04-02 18:56] VITALS: BMI 24.0
[2018-04-02 19:06] VITALS: BP 113/50; PULSE 86; RESP 16; TEMP 97.9
--- NOTE | 2018-04-02 19:13 | ED PDOC ---
HPI: General Adult <Luisana Escalante - Last Filed: 04/02/18 22:48> Chief Complaint (Provider): seizure History Per: Patient Additional Complaint(s): 52 y/o male returns for the second time today. He states he was at home about 1 hr prior arrival and had a seizure. He states he has his evening dose of keppra in his pocket. Patient states his primary care doctor told him that he needs to go to the ED every time he has a seizure. <Fatimah Johnson - Last Filed: 04/02/18 23:39> Time Seen by Provider: 04/02/18 19:10 Chief Complaint (Nursing): Seizure Supervising Attending Note - Attestation: I have personally seen and examined this patient.: No I have reviewed all pertinent clinical information, including history, physical exam and plan: Yes <Luisana Escalante - Last Filed: 04/02/18 22:48> Past Medical History Vital Signs: Last Vital Signs Temp 97.9 F 04/02/18 19:03 Pulse 86 04/02/18 19:03 Resp 16 04/02/18 19:03 BP 113/50 L 04/02/18 19:03 Pulse Ox 97 04/02/18 21:17 <Luisana Escalante - Last Filed: 04/02/18 22:48> Reviewed: Historical Data, Nursing Documentation, Vital Signs Vital Signs: Last Vital Signs Temp 97.9 F 04/02/18 19:03 Pulse 86 04/02/18 19:03 Resp 16 04/02/18 19:03 BP 113/50 L 04/02/18 19:03 Pulse Ox - Medical History PMH: Anemia, Anxiety, Back Problems (herniated disc), Fractures (rib, left shoulder, left hand 5th digit, humerus), Gastritis, Gall Bladder Disease (Cholelithiasis), Seizures, Chronic Pain (left shoulder) - Surgical History Surgical History: Endoscopy - Family History Family History: States: No Known Family Hx - Living Arrangements Living Arrangements: With Family - Social History Current smoker - smoking cessation education provided: Yes Alcohol: > 2 Drinks/Day Drugs: Denies <Ftaimah Johnson - Last Filed: 04/02/18 23:39> - Home Medications Home Medications: Ambulatory Orders Medication Instructions Recorded Lactulose [Enulose] 20 gm PO BID #40 udc 03/05/18 Pantoprazole [Protonix EC Tab] 40 mg PO DAILY #30 ect 03/05/18 Amoxicillin/Clavulanate [Augmentin 1 tab PO BID #14 tab 03/11/18 875 MG-125 MG] levETIRAcetam [Keppra] 500 mg PO Q12H #60 tab 03/13/18 Acetaminophen [Pain Reliever] 500 mg PO Q4 #30 tablet 03/21/18 Omeprazole 20 mg PO DAILY #30 capsule. 03/22/18 - Allergies Allergies/Adverse Reactions: Allergies Allergy/AdvReac Type Severity Reaction Status Date / Time aspirin Allergy NAUSEA Verified 04/01/18 19:49 ibuprofen [From Motrin] Allergy NAUSEA Verified 04/01/18 19:49 naproxen Allergy RASH Verified 04/01/18 19:49 NSAIDS (Non-Steroidal Allergy NAUSEA Verified 04/01/18 19:49 Anti-Inflamma Review of Systems ROS Statement: Except As Marked, All Systems Reviewed And Found Negative Neurological: Positive for: Seizures Psych: Positive for: Other (etoh) <Fatimah Johnson - Last Filed: 04/02/18 23:39> Physical Exam - Reviewed Nursing Documentation Reviewed: Yes Vital Signs Reviewed: Yes - Physical Exam Appears: Positive for: Well Skin: Positive for: Normal Color. Negative for: Rash Eye Exam: Positive for: Normal appearance Cardiovascular/Chest: Positive for: Regular Rate, Rhythm Respiratory: Positive for: Normal Breath Sounds. Negative for: Wheezing, Respiratory Distress Neurologic/Psych: Positive for: Alert, Oriented <Fatimah Johnson - Last Filed: 04/02/18 23:39> - ECG O2 Sat by Pulse Oximetry: 97 Pulse Ox Interpretation: Normal <Fatimah Johnson - Last Filed: 04/02/18 23:39> Medical Decision Making Medical Decision Makin52 y/o male with etoh abuse and history of seizures. Plan: PO tylenol Glucose POC - 82 Patient was observed in emergency room for several hours. His condition remained stable throughout his stay. 11:30 pm: Patient is awake, alert, has steady gait with walker which he uses at baseline. He is stable for discharge. <Fatimah Johnson - Last Filed: 04/02/18 23:39> Disposition <Luisana Escalante - Last Filed: 04/02/18 22:48> - Patient ED Disposition Is Patient to be Admitted: No - Disposition Disposition: Routine/Home Disposition Time: 23:30 <Fatimah Johnson - Last Filed: 04/02/18 23:39> - Clinical Impression Clinical Impression: Alcohol abuse with intoxication, Seizure disorder - Disposition Referrals: [facility] [Outside] Condition: STABLE Instructions: Seizures, Adult (DC), Alcohol Abuse and Alcoholism (DC), Effects of Alcohol on Your Health Forms: [employer] (Icelandic)
[2018-04-02 19:16] VITALS: O2SAT 97
== END 2018-04-02 23:36 | disposition home or self-care (01) ==
LOC: H.ER 18:56
DX: F10.129 Alcohol abuse with intoxication, unspecified (principal); F17.200 Nicotine dependence, unspecified, uncomplicated; G40.909 Epilepsy, unspecified, not intractable, without status epilepticus; G89.29 Other chronic pain; Z88.6 Allergy status to analgesic agent

== ENCOUNTER 2018-04-03 18:25 | Emergency (ER) | payer MEDICAID ==
[2018-04-03 18:26] VITALS: BMI 24.0
[2018-04-03 18:31] VITALS: PULSE 106; RESP 16; O2SAT 99
[2018-04-03 18:32] VITALS: BP 121/75; TEMP 97.8
--- NOTE | 2018-04-03 18:51 | ED PDOC ---
HPI: General Adult Chief Complaint (Provider): eye pain, etoh History Per: Patient Additional Complaint(s): 52 y/o male presents to ED acutely intoxicated. He states he has had pain to left eye region for the past 2 days. He denies any known trauma or injury. He denies any vision changes. Patient is well known to ED for frequent daily visits. PMD: none <Fatimah Johnson - Last Filed: 04/03/18 23:09> <Luisana Escalante - Last Filed: 04/04/18 00:07> Time Seen by Provider: 04/03/18 18:37 Chief Complaint (Nursing): Eye Problem Supervising Attending Note - Attestation: I have personally seen and examined this patient.: No I have reviewed all pertinent clinical information, including history, physical exam and plan: Yes <Luisana Escalante - Last Filed: 04/04/18 00:07> Past Medical History Reviewed: Historical Data, Nursing Documentation, Vital Signs Vital Signs: Last Vital Signs Temp 97.8 F 04/03/18 18:28 Pulse 106 H 04/03/18 18:28 Resp 16 04/03/18 18:28 BP 121/75 04/03/18 18:28 Pulse Ox 99 04/03/18 18:28 - Medical History PMH: Anemia, Anxiety, Back Problems (herniated disc), Deep Vein Thrombosis, Fractures (rib, left shoulder, left hand 5th digit, humerus), Gastritis, Gall Bladder Disease (Cholelithiasis), Pancreatitis, Seizures, Chronic Pain (left shoulder) - Surgical History Surgical History: Endoscopy - Family History Family History: States: No Known Family Hx - Living Arrangements Living Arrangements: With Family - Social History Current smoker - smoking cessation education provided: Yes Alcohol: > 2 Drinks/Day Drugs: Denies - Immunization History Hx Tetanus Toxoid Vaccination: Yes Hx Influenza Vaccination: Yes Hx Pneumococcal Vaccination: Yes <Fatimah Johnson - Last Filed: 04/03/18 23:09> Vital Signs: Last Vital Signs Temp 97.8 F 04/03/18 18:28 Pulse 106 H 04/03/18 18:28 Resp 16 04/03/18 18:28 BP 121/75 04/03/18 18:28 Pulse Ox 99 04/03/18 23:18 <Luisana Escalante - Last Filed: 04/04/18 00:07> - Home Medications Home Medications: Ambulatory Orders Medication Instructions Recorded RX: Lactulose [Enulose] 20 gm PO BID #40 udc 03/05/18 RX: Pantoprazole [Protonix EC Tab] 40 mg PO DAILY #30 ect 03/05/18 Amoxicillin/Clavulanate [Augmentin 1 tab PO BID #14 tab 03/11/18 875 MG-125 MG] RX: levETIRAcetam [Keppra] 500 mg PO Q12H #60 tab 03/13/18 RX: Acetaminophen [Pain Reliever] 500 mg PO Q4 #30 tablet 03/21/18 RX: Omeprazole 20 mg PO DAILY #30 capsule. 03/22/18 Cephalexin [Keflex] 500 mg PO TID #21 capsule 04/03/18 RX: Tobramycin [Tobrex] 5 ml TOP QID #1 bottle 04/03/18 - Allergies Allergies/Adverse Reactions: Allergies Allergy/AdvReac Type Severity Reaction Status Date / Time aspirin Allergy NAUSEA Verified 04/01/18 19:49 ibuprofen [From Motrin] Allergy NAUSEA Verified 04/01/18 19:49 naproxen Allergy RASH Verified 04/01/18 19:49 NSAIDS (Non-Steroidal Allergy NAUSEA Verified 04/01/18 19:49 Anti-Inflamma Review of Systems ROS Statement: Except As Marked, All Systems Reviewed And Found Negative Eyes: Positive for: Pain (left eye) Psych: Positive for: Other (etoh) <Fatimah Johnson - Last Filed: 04/03/18 23:09> Physical Exam - Reviewed Nursing Documentation Reviewed: Yes Vital Signs Reviewed: Yes - Physical Exam Appears: Positive for: Well, Non-toxic, No Acute Distress Skin: Positive for: Normal Color. Negative for: Rash Eye Exam: Positive for: EOMI, PERRL, Other (mild erythema noted to left periorbital region). Negative for: Conjunctival injection, Scleral icterus ENT: Positive for: Normal ENT Inspection Neurologic/Psych: Positive for: Other (alert, unsteady gait due to intoxication, answers some questions appropriately) <Fatimah Johnson - Last Filed: 04/03/18 23:09> - ECG O2 Sat by Pulse Oximetry: 99 Pulse Ox Interpretation: Normal <Fatimah Johnson - Last Filed: 04/03/18 23:09> Medical Decision Making Medical Decision Makin52 y/o intoxicated male Plan: PO tylenol Glucose POC: 147 Patient was observed in emergency room for several hours, his condition remained stable throughout his stay. 11:15 PM: Patient is awake, alert, has steady gait and is stable for discharge <Fatimah Johnson - Last Filed: 04/03/18 23:09> Disposition - Patient ED Disposition Is Patient to be Admitted: No Counseled Patient/Family Regarding: Diagnosis, Need For Followup, Rx Given - Disposition Disposition: Routine/Home Disposition Time: 19:59 <Fatimah Johnson - Last Filed: 04/03/18 23:09> <Luisana Escalante - Last Filed: 04/04/18 00:07> - Clinical Impression Clinical Impression: Eye infection, Alcoholism - Disposition Referrals: [facility] [Outside] Condition: STABLE Additional Instructions: Take rx meds as directed. Follow up with clinic. Prescriptions: Cephalexin [Keflex] 500 mg PO TID #21 capsule RX: Tobramycin [Tobrex] 5 ml TOP QID #1 bottle Instructions: Conjunctivitis ([place]), Alcohol Abuse and Alcoholism (DC) Forms: [employer] (Bulgarian)
== END 2018-04-03 23:26 | disposition home or self-care (01) ==
LOC: H.ER 18:25
DX: H10.32 Unspecified acute conjunctivitis, left eye (principal); F10.20 Alcohol dependence, uncomplicated; F17.200 Nicotine dependence, unspecified, uncomplicated; Z88.6 Allergy status to analgesic agent

== ENCOUNTER 2018-04-05 08:45 | Emergency (ER) | payer MEDICAID ==
[2018-04-05 08:46] VITALS: BMI 24.0
[2018-04-05 08:54] VITALS: BP 138/77; PULSE 86; RESP 18; O2SAT 96
[2018-04-05] MEDS ORDERED: Tdap Vaccine 0.5 ml Vial (10-64 yrs) IM ONE ×2 (09:45→10:27)
--- NOTE | 2018-04-05 10:50 | ED PDOC ---
HPI: Trauma/Fall - HPI Time Seen by Provider: 04/05/18 09:00 Chief Complaint (Nursing): Trauma Chief Complaint (Provider): Trauma History Per: Patient History/Exam Limitations: no limitations Location Of Injury: Right: Face Associated Symptoms: denies: LOC Additional Complaint(s): 52 years old male with history of seizure and anxiety presents to ER status post fall prior to arrival. Patient admits he has been drinking, fell and hit his head causing abrasion to right cheek and bridge of nose. He denies loss of consciousness. PMD: non provided Past Medical History Reviewed: Historical Data, Nursing Documentation, Vital Signs Vital Signs: Last Vital Signs Temp 96.9 F L 04/05/18 08:53 Pulse 86 04/05/18 08:53 Resp 18 04/05/18 08:53 BP 138/77 04/05/18 08:53 Pulse Ox 96 04/05/18 08:53 - Medical History PMH: Anemia, Anxiety, Back Problems (herniated disc), Deep Vein Thrombosis, Fractures (rib, left shoulder, left hand 5th digit, humerus), Gastritis, Gall Bladder Disease (Cholelithiasis), Pancreatitis, Seizures, Chronic Pain (left shoulder) Denies: CHF, HIV, Hypercholesterolemia, Chronic Kidney Disease, Sexually Transmitted Disease - Surgical History Surgical History: Endoscopy - Family History Family History: States: Unknown Family Hx - Social History Current smoker - smoking cessation education provided: No (Former) Alcohol: Social Drugs: Denies - Immunization History Hx Tetanus Toxoid Vaccination: Yes Hx Influenza Vaccination: Yes Hx Pneumococcal Vaccination: Yes - Home Medications Home Medications: Ambulatory Orders Medication Instructions Recorded RX: Lactulose [Enulose] 20 gm PO BID #40 udc 03/05/18 RX: Pantoprazole [Protonix EC Tab] 40 mg PO DAILY #30 ect 03/05/18 Amoxicillin/Clavulanate [Augmentin 1 tab PO BID #14 tab 03/11/18 875 MG-125 MG] RX: levETIRAcetam [Keppra] 500 mg PO Q12H #60 tab 03/13/18 RX: Acetaminophen [Pain Reliever] 500 mg PO Q4 #30 tablet 03/21/18 RX: Omeprazole 20 mg PO DAILY #30 capsule. 03/22/18 Cephalexin [Keflex] 500 mg PO TID #21 capsule 04/03/18 RX: Tobramycin [Tobrex] 5 ml TOP QID #1 bottle 04/03/18 - Allergies Allergies/Adverse Reactions: Allergies Allergy/AdvReac Type Severity Reaction Status Date / Time aspirin Allergy NAUSEA Verified 04/01/18 19:49 ibuprofen [From Motrin] Allergy NAUSEA Verified 04/01/18 19:49 naproxen Allergy RASH Verified 04/01/18 19:49 NSAIDS (Non-Steroidal Allergy NAUSEA Verified 04/01/18 19:49 Anti-Inflamma Review of Systems ROS Statement: Except As Marked, All Systems Reviewed And Found Negative Constitutional: Positive for: Other (Right cheek abrasion) ENT: Positive for: Other (Abrasion to right edge of nose) Neurological: Negative for: Dizziness Physical Exam - Reviewed Nursing Documentation Reviewed: Yes Vital Signs Reviewed: Yes - Physical Exam Appears: Positive for: Non-toxic, No Acute Distress Head Exam: Positive for: ATRAUMATIC, NORMOCEPHALIC Skin: Positive for: Normal Color, Warm, Dry Eye Exam: Positive for: Normal appearance, EOMI, PERRL ENT: Positive for: Other (Nose bridge and right cheek upper abrasion- no active bleeding, no obvious deformity, stepoff or hematoma) Neck: Positive for: Normal Cardiovascular/Chest: Positive for: Regular Rate, Rhythm. Negative for: Murmur Respiratory: Positive for: Normal Breath Sounds Gastrointestinal/Abdominal: Positive for: Soft Extremity: Positive for: Normal ROM. Negative for: Pedal Edema, Swelling Neurologic/Psych: Positive for: Alert, Oriented (x3) - ECG O2 Sat by Pulse Oximetry: 96 (RA) Pulse Ox Interpretation: Normal Medical Decision Making Medical Decision Making: Time: 940 Initial Plan: --CT Head W/O Contrast --CT Orbits/Facial W/O Contrast --Adacel 0.5 ml IM [address] FINDINGS: HEMORRHAGE: No intracranial hemorrhage. BRAIN: Stable limited diffuse cerebral atrophy is appreciated. Relatively diffuse cerebral white matter lucency is again appreciated predominate periventricular and centrum semiovale spaces with apparent sparing of the corpus callosum. Overall, this pattern is stable in the interval and could reflect chronic microangiopathy, particularly in a patient with a vasculopathic disorder, as this patient appears relatively young at 52 years stated age. Clinically correlate further. No interval mass effect or suspicious extra-axial collection. VENTRICLES: Unremarkable. No hydrocephalus. CALVARIUM: No destructive bony lesion or displaced fracture identified including through the skullbase. PARANASAL SINUSES: Unremarkable as visualized. No significant inflammatory changes. MASTOID AIR CELLS: Unremarkable as visualized. No inflammatory changes. OTHER FINDINGS: Incidental note is made left frontal scalp/periorbital soft tissue edema. IMPRESSION: Stable potential age-related neuro degenerative changes without significant interval change. White-matter changes in particular spare the corpus callosum but appear relatively prominent for 52-year-old patient. Clinically correlate further as other etiologies are possible. Incidental left frontal scalp/periorbital soft tissue edema. [address] FINDINGS: NASAL BONES: No fracture identified. ORBITS: Intact without fracture bilaterally. However, there is moderate left periorbital soft tissue edema also ext identified involving the inferior left scalp soft tissues. Left orbital edema is preseptal with no postseptal involvement. PARANASAL SINUSES/ MASTOIDS: Bilateral maxillary and ethmoid mucosal inflammatory changes are identified as well as polyps or retention cysts in bilateral maxillary sinuses. Right sphenoid mucosal inflammatory changes are identified in addition. MAXILLA: Unremarkable. MANDIBLE/ TEMPOROMANDIBULAR JOINTS: Stable nonaggressive 7 mm cyst seen in the distal left horizontal mandibular ramus. No fracture of the mandible identified. SKULL BASE: Unremarkable. TEMPORAL BONES: Middle ears and mastoid grossly unremarkable. OTHER FINDINGS: None. IMPRESSION: 1. Moderate left orbital preseptal edema extending into the inferior left frontal scalp soft tissues. No fracture of the facial bones is appreciate including the left orbit. No postseptal edema left orbit. 2. Other lesser findings as discussed above. 1140 Imaging as above. Pt ambulating with steady gait, alert and awake and oriented. pt clinically sober and stable for dc. Scribe Attestation: Documented by Lucina Walton, acting as a scribe for Amanda Washington MD. Provider Scribe Attestation: All medical record entries made by the Scribe were at my direction and personally dictated by me. I have reviewed the chart and agree that the record accurately reflects my personal performance of the history, physical exam, medical decision making, and the department course for this patient. I have also personally directed, reviewed, and agree with the discharge instructions and disposition. Disposition - Clinical Impression Clinical Impression: Fall, Alcoholism - Patient ED Disposition Is Patient to be Admitted: No Counseled Patient/Family Regarding: Studies Performed, Diagnosis, Need For Followup - Disposition Disposition: Routine/Home Disposition Time: 11:40 Condition: IMPROVED Additional Instructions: follow up with your primary doctor in 1-2 days return to the ED with any worsening or concerning symptoms Instructions: Preventing Falls in the Older Adult, Preventing Falls, Alcohol Abuse and Alcoholism (DC) Forms: [employer] (Estonian)
--- NOTE | 2018-04-05 11:21 | CT ---
Date of service: 04/05/2018 PROCEDURE: CT HEAD WITHOUT CONTRAST. HISTORY: fall COMPARISON: Noncontrast head CT 03/20/2018. TECHNIQUE: Axial computed tomography images were obtained through the head/brain without intravenous contrast. Radiation dose: Total exam DLP = 73.19 mGy-cm. This CT exam was performed using one or more of the following dose reduction techniques: Automated exposure control, adjustment of the mA and/or kV according to patient size, and/or use of iterative reconstruction technique. FINDINGS: HEMORRHAGE: No intracranial hemorrhage. BRAIN: Stable limited diffuse cerebral atrophy is appreciated. Relatively diffuse cerebral white matter lucency is again appreciated predominate periventricular and centrum semiovale spaces with apparent sparing of the corpus callosum. Overall, this pattern is stable in the interval and could reflect chronic microangiopathy, particularly in a patient with a vasculopathic disorder, as this patient appears relatively young at 52 years stated age. Clinically correlate further. No interval mass effect or suspicious extra-axial collection. VENTRICLES: Unremarkable. No hydrocephalus. CALVARIUM: No destructive bony lesion or displaced fracture identified including through the skullbase. PARANASAL SINUSES: Unremarkable as visualized. No significant inflammatory changes. MASTOID AIR CELLS: Unremarkable as visualized. No inflammatory changes. OTHER FINDINGS: Incidental note is made left frontal scalp/periorbital soft tissue edema. IMPRESSION: Stable potential age-related neuro degenerative changes without significant interval change. White-matter changes in particular spare the corpus callosum but appear relatively prominent for 52-year-old patient. Clinically correlate further as other etiologies are possible. Incidental left frontal scalp/periorbital soft tissue edema.
--- NOTE | 2018-04-05 11:47 | CT ---
Date of service: 04/05/2018 PROCEDURE: CT MAXILLOFACIAL BONES WITHOUT CONTRAST HISTORY: fall COMPARISON: Orbit CT without contrast 12/24/2017. TECHNIQUE: Contiguous axial CT images of the maxillofacial bones were obtained. Coronal and sagittal reformats were generated. Radiation dose: Total exam DLP = 1584.95 mGy-cm. This CT exam was performed using one or more of the following dose reduction techniques: Automated exposure control, adjustment of the mA and/or kV according to patient size, and/or use of iterative reconstruction technique. FINDINGS: NASAL BONES: No fracture identified. ORBITS: Intact without fracture bilaterally. However, there is moderate left periorbital soft tissue edema also ext identified involving the inferior left scalp soft tissues. Left orbital edema is preseptal with no postseptal involvement. PARANASAL SINUSES/ MASTOIDS: Bilateral maxillary and ethmoid mucosal inflammatory changes are identified as well as polyps or retention cysts in bilateral maxillary sinuses. Right sphenoid mucosal inflammatory changes are identified in addition. MAXILLA: Unremarkable. MANDIBLE/ TEMPOROMANDIBULAR JOINTS: Stable nonaggressive 7 mm cyst seen in the distal left horizontal mandibular ramus. No fracture of the mandible identified. SKULL BASE: Unremarkable. TEMPORAL BONES: Middle ears and mastoid grossly unremarkable. OTHER FINDINGS: None. IMPRESSION: 1. Moderate left orbital preseptal edema extending into the inferior left frontal scalp soft tissues. No fracture of the facial bones is appreciate including the left orbit. No postseptal edema left orbit. 2. Other lesser findings as discussed above.
[2018-04-05 14:10] VITALS: TEMP 97.1
== END 2018-04-05 13:00 | disposition home or self-care (01) ==
LOC: H.ER 08:45
DX: F10.20 Alcohol dependence, uncomplicated (principal); S09.90XA Unspecified injury of head, initial encounter; W19.XXXA Unspecified fall, initial encounter; Y92.89 Other specified places as the place of occurrence of the external cause; G40.909 Epilepsy, unspecified, not intractable, without status epilepticus

== ENCOUNTER 2018-04-05 16:12 | Emergency (ER) | payer MEDICAID ==
[2018-04-05 16:12] VITALS: BMI 24.0
[2018-04-05 16:19] VITALS: BP 128/47; PULSE 77; RESP 16; O2SAT 98
--- NOTE | 2018-04-05 16:46 | ED PDOC ---
HPI: Seizure Time Seen by Provider: 04/05/18 16:46 Chief Complaint (Nursing): Seizure Chief Complaint (Provider): SEIZURE History Per: Patient (52 Y/O MALE H/O SEIZURE HISTORY STATES HE HAD 2 SEIZURES TODAY WITH HEAD INJURY EARLIER TODAY 2AM.) Past Medical History Reviewed: Historical Data, Nursing Documentation, Vital Signs Vital Signs: Last Vital Signs Temp 98.0 F 04/05/18 16:17 Pulse 77 04/05/18 16:17 Resp 16 04/05/18 16:17 BP 128/47 L 04/05/18 16:17 Pulse Ox 98 04/05/18 16:17 - Medical History PMH: Anemia, Anxiety, Back Problems (herniated disc), Deep Vein Thrombosis, Fractures (rib, left shoulder, left hand 5th digit, humerus), Gastritis, Gall Bladder Disease (Cholelithiasis), Pancreatitis, Seizures, Chronic Pain (left shoulder) Denies: CHF, HIV, Hypercholesterolemia, Chronic Kidney Disease, Sexually Transmitted Disease - Surgical History Surgical History: Endoscopy - Family History Family History: States: Unknown Family Hx - Immunization History Hx Tetanus Toxoid Vaccination: Yes Hx Influenza Vaccination: Yes Hx Pneumococcal Vaccination: Yes - Home Medications Home Medications: Ambulatory Orders Medication Instructions Recorded Lactulose [Enulose] 20 gm PO BID #40 udc 03/05/18 Pantoprazole [Protonix EC Tab] 40 mg PO DAILY #30 ect 03/05/18 Amoxicillin/Clavulanate [Augmentin 1 tab PO BID #14 tab 03/11/18 875 MG-125 MG] levETIRAcetam [Keppra] 500 mg PO Q12H #60 tab 03/13/18 Acetaminophen [Pain Reliever] 500 mg PO Q4 #30 tablet 03/21/18 Omeprazole 20 mg PO DAILY #30 capsule. 03/22/18 Cephalexin [Keflex] 500 mg PO TID #21 capsule 04/03/18 Tobramycin [Tobrex] 5 ml TOP QID #1 bottle 04/03/18 - Allergies Allergies/Adverse Reactions: Allergies Allergy/AdvReac Type Severity Reaction Status Date / Time aspirin Allergy NAUSEA Verified 04/01/18 19:49 ibuprofen [From Motrin] Allergy NAUSEA Verified 04/01/18 19:49 naproxen Allergy RASH Verified 04/01/18 19:49 NSAIDS (Non-Steroidal Allergy NAUSEA Verified 04/01/18 19:49 Anti-Inflamma Review of Systems ROS Statement: Except As Marked, All Systems Reviewed And Found Negative Physical Exam - Reviewed Nursing Documentation Reviewed: Yes Vital Signs Reviewed: Yes - Physical Exam Appears: Positive for: Well, Non-toxic, No Acute Distress Head Exam: Positive for: ATRAUMATIC, NORMAL INSPECTION, NORMOCEPHALIC Skin: Positive for: Normal Color, Warm, DRY Eye Exam: Positive for: EOMI, Normal appearance, PERRL ENT: Positive for: Normal ENT Inspection Neck: Positive for: Normal, Painless ROM Cardiovascular/Chest: Positive for: Regular Rate, Rhythm Respiratory: Positive for: CNT, Normal Breath Sounds Gastrointestinal/Abdominal: Positive for: Normal Exam, Soft Back: Positive for: Normal Inspection Extremity: Positive for: Normal ROM Neurologic/Psych: Positive for: Alert, Oriented - ECG O2 Sat by Pulse Oximetry: 98 - Progress ED Course And Treament: BS 86 keppra 500 mg x [address] head/orbit-facial 04/05/2018 done after head injury no acute injury noted. Disposition - Clinical Impression Clinical Impression: Seizure - Patient ED Disposition Is Patient to be Admitted: No - Disposition Disposition: Routine/Home Disposition Time: 18:01 Condition: FAIR Instructions: Seizures, Adult (DC)
[2018-04-05 19:39] VITALS: TEMP 98
== END 2018-04-05 19:40 | disposition home or self-care (01) ==
LOC: H.ER 16:12
DX: R56.9 Unspecified convulsions (principal)

== ENCOUNTER 2018-04-06 02:07 | Emergency (ER) | payer MEDICAID ==
[2018-04-06 02:08] VITALS: BMI 24.0
--- NOTE | 2018-04-06 05:34 | ED PDOC ---
HPI: General Adult Time Seen by Provider: 04/06/18 02:13 Chief Complaint (Nursing): Alcohol Ingestion Chief Complaint (Provider): Seizure and Facial Abrasion History Per: Patient History/Exam Limitations: no limitations Onset/Duration Of Symptoms: Hrs Current Symptoms Are (Timing): Still Present Additional Complaint(s): 52 year old male with PMHx of epilepsy presents to the ER for an evaluation of seizure and hit his head after being discharged. Patient notes of the abrasion on his face after falling to the ground. He denies any other complaints. PMD: No Family Provider Past Medical History Reviewed: Historical Data, Nursing Documentation, Vital Signs Vital Signs: Last Vital Signs Temp 98.9 F 04/06/18 02:11 Pulse 54 L 04/06/18 02:11 Resp 18 04/06/18 02:11 BP 145/94 H 04/06/18 02:11 Pulse Ox 99 04/06/18 02:11 - Medical History PMH: Anemia, Anxiety, Back Problems (herniated disc), Deep Vein Thrombosis, Fractures (rib, left shoulder, left hand 5th digit, humerus), Gastritis, Gall Bladder Disease (Cholelithiasis), Pancreatitis, Seizures, Chronic Pain (left shoulder) Denies: CHF, HIV, Hypercholesterolemia, Chronic Kidney Disease, Sexually Transmitted Disease - Surgical History Surgical History: Endoscopy - Family History Family History: States: Unknown Family Hx - Social History Current smoker - smoking cessation education provided: No Alcohol: < 2 Drinks/Day Drugs: Denies - Immunization History Hx Tetanus Toxoid Vaccination: Yes Hx Influenza Vaccination: Yes Hx Pneumococcal Vaccination: Yes - Home Medications Home Medications: Ambulatory Orders Medication Instructions Recorded Lactulose [Enulose] 20 gm PO BID #40 udc 03/05/18 Pantoprazole [Protonix EC Tab] 40 mg PO DAILY #30 ect 03/05/18 Amoxicillin/Clavulanate [Augmentin 1 tab PO BID #14 tab 03/11/18 875 MG-125 MG] levETIRAcetam [Keppra] 500 mg PO Q12H #60 tab 03/13/18 Acetaminophen [Pain Reliever] 500 mg PO Q4 #30 tablet 03/21/18 Omeprazole 20 mg PO DAILY #30 capsule. 03/22/18 Cephalexin [Keflex] 500 mg PO TID #21 capsule 04/03/18 Tobramycin [Tobrex] 5 ml TOP QID #1 bottle 04/03/18 - Allergies Allergies/Adverse Reactions: Allergies Allergy/AdvReac Type Severity Reaction Status Date / Time aspirin Allergy NAUSEA Verified 04/01/18 19:49 ibuprofen [From Motrin] Allergy NAUSEA Verified 04/01/18 19:49 naproxen Allergy RASH Verified 04/01/18 19:49 NSAIDS (Non-Steroidal Allergy NAUSEA Verified 04/01/18 19:49 Anti-Inflamma Review of Systems ROS Statement: Except As Marked, All Systems Reviewed And Found Negative Constitutional: Negative for: Fever Skin: Positive for: Other (abrasion on face) Neurological: Positive for: Seizures Psych: Negative for: Suicidal ideation (homicidal ideation) Physical Exam - Reviewed Nursing Documentation Reviewed: Yes Vital Signs Reviewed: Yes - Physical Exam Appears: Positive for: Non-toxic, No Acute Distress Head Exam: Positive for: ATRAUMATIC, NORMAL INSPECTION, NORMOCEPHALIC Skin: Negative for: Normal Color (abrasion of face healing and abrasion) Eye Exam: Positive for: EOMI, Normal appearance, PERRL ENT: Negative for: Normal ENT Inspection (abrasion to nasal bridge with mild swelling) Neck: Positive for: Normal, Painless ROM, Supple. Negative for: Decreased ROM Cardiovascular/Chest: Positive for: Regular Rate, Rhythm. Negative for: Murmur Respiratory: Positive for: Normal Breath Sounds. Negative for: Decreased Breath Sounds, Wheezing, Respiratory Distress Gastrointestinal/Abdominal: Positive for: Normal Exam, Soft. Negative for: Tenderness, Guarding, Rebound Back: Positive for: Normal Inspection. Negative for: L CVA Tenderness, R CVA Tenderness Extremity: Positive for: Normal ROM. Negative for: Tenderness, Pedal Edema, Deformity Neurologic/Psych: Positive for: Alert, Oriented (x3). Negative for: Motor/Sensory Deficits - ECG O2 Sat by Pulse Oximetry: 99 (RA) Pulse Ox Interpretation: Normal Medical Decision Making Medical Decision Making: Time: 229 Initial Impression: 52 year old male with seizure Initial Plan: --Head w/o Contrast CT --Maxillofacial w/o Contrast CT --Reevaluation Scribe Attestation: Documented by Jean Claude Whitmore acting as a scribe for Murphy Chiu MD Provider Scribe Attestation: All medical record entries made by the Scribe were at my direction and personally dictated by me. I have reviewed the chart and agree that the record accurately reflects my personal performance of the history, physical exam, medical decision making, and the department course for this patient. I have also personally directed, reviewed, and agree with the discharge instructions and disposition. Disposition - Disposition Forms: [employer] (Liberian)
--- NOTE | 2018-04-06 08:16 | ED PDOC ---
- ECG O2 Sat by Pulse Oximetry: 97 - CT Scan/US ct Other Rad Studies (CT/US): Read By Radiologist Other Rad Interpretation: no acute - Progress ED Course And Treament: 903: Frequent Er visits for the same. AAOx3. Tolerated PO. Ambulated with no issues. Fu with pcp. Medical Decision Making Medical Decision Making: Time: 07:00 Took over care from Dr. Chiu. Provider will follow up on CT of head and face. Scribe Attestation: Documented by Bradley Og, acting as a scribe for Brown Maloney MD. Provider Scribe Attestation: All medical record entries made by the Scribe were at my direction and personally dictated by me. I have reviewed the chart and agree that the record accurately reflects my personal performance of the history, physical exam, medical decision making, and the department course for this patient. I have also personally directed, reviewed, and agree with the discharge instructions and disposition. Disposition Counseled Patient/Family Regarding: Studies Performed, Diagnosis, Need For Followup - Clinical Impression Clinical Impression: Head injury, Alcohol abuse - POA Present On Arrival: Falls Or Trauma - Disposition Referrals: [facility] [Outside] - 04/07/18 Disposition: Routine/Home Disposition Time: 09:04 Condition: STABLE Additional Instructions: Return if not better in 3 days. Instructions: Closed Head Injury, Alcohol Abuse and Alcoholism (DC)
[2018-04-06 10:25] VITALS: BP 105/60; PULSE 80; RESP 16; TEMP 98.4; O2SAT 99
--- NOTE | 2018-04-06 11:10 | CT ---
Date of service: 04/06/2018 PROCEDURE: CT HEAD WITHOUT CONTRAST. HISTORY: seizure and head injury, facial contusion COMPARISON: 04/05/2018. TECHNIQUE: Axial computed tomography images were obtained through the head/brain without intravenous contrast. Radiation dose: Total exam DLP = 929.43 mGy-cm. This CT exam was performed using one or more of the following dose reduction techniques: Automated exposure control, adjustment of the mA and/or kV according to patient size, and/or use of iterative reconstruction technique. FINDINGS: HEMORRHAGE: No intracranial hemorrhage. BRAIN: There is redemonstration of confluent periventricular hypodensities. There is no mass, mass effect or abnormal extra-axial fluid collection. There is no territorial infarction. The midline sagittal structures are normal. VENTRICLES: There is mild eight advanced global parenchymal volume loss and proportionate enlargement of the ventricles and cortical sulci. CALVARIUM: Unremarkable. PARANASAL SINUSES: There is moderate polypoid mucosal thickening in the maxillary sinuses with retention cysts/polyps and mild mucosal thickening in the right sphenoid chamber. The remaining included paranasal sinuses are clear. MASTOID AIR CELLS: Predominantly clear. OTHER FINDINGS: None. IMPRESSION: No acute intracranial abnormality. Age advanced global parenchymal volume loss and presumable microangiopathic changes. No significant interval change.
--- NOTE | 2018-04-06 11:20 | CT ---
Date of service: 04/06/2018 PROCEDURE: CT MAXILLOFACIAL BONES WITHOUT CONTRAST HISTORY: seizure and head injury, facial contusion COMPARISON: None available. TECHNIQUE: Contiguous axial CT images of the maxillofacial bones were obtained. Coronal and sagittal reformats were generated. Radiation dose: Total exam DLP = 860.04 mGy-cm. This CT exam was performed using one or more of the following dose reduction techniques: Automated exposure control, adjustment of the mA and/or kV according to patient size, and/or use of iterative reconstruction technique. FINDINGS: NASAL BONES: No acute fracture. ORBITS: No acute fracture. There is mild left periorbital soft tissue swelling. No intra bulbar or retro bulbar hematoma or foreign body. PARANASAL SINUSES/ MASTOIDS: There is mild polypoid mucosal thickening in the maxillary sinuses with retention cysts/polyps. There is also mucosal thickening in the nasal cavity. There is mild chronic sphenoid sinusitis. There are small mastoid effusions. MAXILLA: No acute maxillofacial fracture. MANDIBLE/ TEMPOROMANDIBULAR JOINTS: No acute fracture or dislocation. SKULL BASE: Unremarkable. TEMPORAL BONES: Middle ears and mastoid grossly unremarkable. OTHER FINDINGS: None. IMPRESSION: No acute nasal bone, orbital or maxillofacial fracture. Mild left periorbital soft tissue swelling/soft tissue hematoma. A preliminary report was provided by [employer].
== END 2018-04-06 10:08 | disposition home or self-care (01) ==
LOC: H.ER 02:07
DX: F10.10 Alcohol abuse, uncomplicated (principal); S09.90XA Unspecified injury of head, initial encounter; S00.81XA Abrasion of other part of head, initial encounter; W19.XXXA Unspecified fall, initial encounter; Y92.89 Other specified places as the place of occurrence of the external cause; G40.909 Epilepsy, unspecified, not intractable, without status epilepticus; Z86.718 Personal history of other venous thrombosis and embolism; Z88.6 Allergy status to analgesic agent; F41.9 Anxiety disorder, unspecified

== ENCOUNTER 2018-04-06 17:48 | Inpatient (IN) | payer MEDICAID, OTHER ==
[2018-04-06 17:48] VITALS: BMI 24.0
[2018-04-06] MEDS ORDERED: Iohexol 240 (50 ml) PO ONE ×2 (18:19→18:42)
--- NOTE | 2018-04-06 18:23 | ED PDOC ---
HPI: General Adult Time Seen by Provider: 04/06/18 18:21 Chief Complaint (Nursing): Seizure Chief Complaint (Provider): SEIZURE History Per: Patient (52 Y/O MALE H/O SEIZURE H/O ALCOHOL ABUSE GI BLEED HERE S/P SEIZURE ACTIVITY NOTED TODAY. PATIENT NOTES PAIN IN ABD/NECK TODAY. STATES HE TOOK HIS MEDICATION TODAY. WAS SEEN IN ED YESTERDAY AND GIVEN KEPPRA AT THAT TIME. ALSO NOTED TO HAVE HAD FACIAL/HEAD INJURY [address] FACE/HEAD AT THAT TIME.) Past Medical History Reviewed: Historical Data, Nursing Documentation, Vital Signs Vital Signs: Last Vital Signs Temp 98.7 F 04/06/18 17:57 Pulse 96 H 04/06/18 17:57 Resp 18 04/06/18 17:57 BP 119/68 04/06/18 17:57 Pulse Ox 100 04/06/18 17:57 - Medical History PMH: Anemia, Anxiety, Back Problems (herniated disc), Deep Vein Thrombosis, Fractures (rib, left shoulder, left hand 5th digit, humerus), Gastritis, Gall Bladder Disease (Cholelithiasis), Pancreatitis, Seizures, Chronic Pain (left shoulder) Denies: CHF, HIV, Hypercholesterolemia, Chronic Kidney Disease, Sexually Transmitted Disease - Surgical History Surgical History: Endoscopy - Family History Family History: States: Unknown Family Hx - Immunization History Hx Tetanus Toxoid Vaccination: Yes Hx Influenza Vaccination: Yes Hx Pneumococcal Vaccination: Yes - Home Medications Home Medications: Ambulatory Orders Medication Instructions Recorded RX: levETIRAcetam [Keppra] 500 mg PO Q12H #60 tab 03/13/18 RX: Acetaminophen [Pain Reliever] 500 mg PO Q4 #30 tablet 03/21/18 RX: Omeprazole 20 mg PO DAILY #30 capsule. 03/22/18 Cephalexin [Keflex] 500 mg PO TID #21 capsule 04/03/18 RX: Tobramycin [Tobrex] 5 ml TOP QID #1 bottle 04/03/18 - Allergies Allergies/Adverse Reactions: Allergies Allergy/AdvReac Type Severity Reaction Status Date / Time aspirin Allergy NAUSEA Verified 04/06/18 18:01 ibuprofen [From Motrin] Allergy NAUSEA Verified 04/06/18 18:01 naproxen Allergy RASH Verified 04/06/18 18:01 NSAIDS (Non-Steroidal Allergy NAUSEA Verified 04/06/18 18:01 Anti-Inflamma Review of Systems ROS Statement: Except As Marked, All Systems Reviewed And Found Negative Physical Exam - Reviewed Nursing Documentation Reviewed: Yes Vital Signs Reviewed: Yes - Physical Exam Appears: Positive for: Well, Non-toxic, No Acute Distress Head Exam: Positive for: NORMAL INSPECTION, NORMOCEPHALIC. Negative for: ATRAUMATIC (1.5 CM LACERATION OLD SUPERFICIAL RIGHT FACIAL REGION.) Skin: Positive for: Normal Color, Warm, DRY Eye Exam: Positive for: EOMI, PERRL, Other (LEFT ORBITAL SWELLING . ). Negative for: Normal appearance ENT: Positive for: Normal ENT Inspection Neck: Positive for: Normal, Painless ROM Cardiovascular/Chest: Positive for: Regular Rate, Rhythm Respiratory: Positive for: CNT, Normal Breath Sounds Gastrointestinal/Abdominal: Positive for: Normal Exam, Soft, Tenderness (MILD TENDERNESS NOTED FLANK. (+) MILD DISTENTION NOTED) Back: Positive for: Normal Inspection Extremity: Positive for: Normal ROM Neurologic/Psych: Positive for: Alert, Oriented - Laboratory Results Result Diagrams: 04/07/18 09:25 04/06/18 19:15 - ECG O2 Sat by Pulse Oximetry: 100 - Progress ED Course And Treament: EKG: NSR 89 BPM NO ECTOPY NO ACUTE CHANGES HEAD CT: PENDING CT ORBITAL-FACIAL: PENDING CT C SPINE: PENDING CT ABD/PELVIS: PENDING TYLENOL 650 MG X 1 DOSE GIVEN IN ED Disposition - Clinical Impression Clinical Impression: Gallstones, Alcohol abuse, Enteritis, Severe anemia - Disposition Disposition: Transfer of Care Disposition Time: 20:00 Condition: FAIR Patient Signed Over To: aFtimah Johnson
[2018-04-06] MEDS ORDERED: Iohexol 240 (50 ml) PO STA (18:42)
[2018-04-06] MEDS ORDERED: Iohexol 240 (50 ml) ONE (19:30)
[2018-04-06 19:44] LABS: BASO % 1.1 % (0.0-2.0); EOS # 0.1 K/uL (0.0-0.7); EOS % 1.9 % (0.0-4.0); HEMOGLOBIN 7.3 g/dL (12.0-18.0); LYMPH # 0.7 K/uL (1.0-4.3); LYMPH % 22.9 % (20.0-40.0); MEAN CELL VOLUME 84.7 fl (80.0-94.0); MEAN CORPUSCULAR HEMOGLOBIN 27.2 pg (27.0-31.0); MEAN CORPUSCULAR HGB CONC 32.1 g/dL (33.0-37.0); MEAN PLATELET VOLUME 7.1 fl (7.2-11.7); MONO # 0.4 K/uL (0.0-0.8); MONO % 12.8 % (0.0-10.0); NEUT # 1.9 K/uL (1.8-7.0); NEUT % 61.3 % (50.0-75.0); NRBC % 0.2 % (0.0-0.0); RBC 2.69 Mil/uL (4.40-5.90); RED CELL DISTRIBUTION WIDTH 17.8 % (11.5-14.5); WHITE BLOOD COUNT 3.2 K/uL (4.8-10.8)
[2018-04-06 20:02] LABS: ALB/GLOB RATIO 0.7 (1.0-2.1); ALBUMIN 3.1 g/dL (3.5-5.0); ALT/SGPT 86 U/L (21-72); AST/SGOT 197 U/L (17-59); BLOOD UREA NITROGEN 15 mg/dl (9-20); CALCIUM 8.8 mg/dL (8.4-10.2); GFR NON-AFRICAN AMERICAN > 60
[2018-04-06] MEDS ORDERED: Iohexol 300 100 ML IJ ONE (21:11)
[2018-04-06] MEDS ORDERED: Sodium Chloride 0.9% 50 ML IV ONE (21:12)
[2018-04-06] MEDS ORDERED: Sodium Chloride 0.9% 1,000 ML IV STA (22:44)
--- NOTE | 2018-04-06 22:44 | ED PDOC ---
- Laboratory Results Result Diagrams: 04/06/18 19:15 04/06/18 19:15 - ECG O2 Sat by Pulse Oximetry: 100 Pulse Ox Interpretation: Normal - Other Rad CT head X-Ray: Read By Radiologist X-Ray Interpretation: Left periorbital swelling, no acute intracranial pathology CT facial bones X-Ray: Read By Radiologist X-Ray Interpretation: left periorbital swelling, sinusitis, no acute fracture CT cervical spine X-Ray: Read By Radiologist X-Ray Interpretation: no fracture, multilevel disc disease CT abd and pelvis with IV contrast X-Ray: Read By Radiologist X-Ray Interpretation: see below Medical Decision Making Medical Decision Makin:00: Case was signed out to machine sign writer pending CT abdomen and pelvis. 22:00: CT abdomen and pelvis completed, patient's blood pressure is 95/46, fluid bolus ordered. 12:23: CT abdomen and pelvis: Severe enteritis most severe in to walk known, hepatosplenomegaly, cholelithiasis without acute cholecystitis. Results were discussed with Dr. Washington, ultrasound of abdomen will be ordered to rule out acute cholecystitis. Lipase also added. 2:30 am: patient is asleep, vital signs are stable 4:30 am: patient is asleep, vital signs stable. Disposition - Clinical Impression Clinical Impression: Gallstones, Alcohol abuse, Enteritis - POA Present On Arrival: None - Disposition Disposition: Transfer of Care Disposition Time: 05:00 Condition: FAIR Forms: [employer] (Turkmen) Patient Signed Over To: Amanda Washington Handoff Comments: Signed out pending diagnostic testing results and final disposition Results - Lab Results Lab Results: 04/06/18 04/06/18 04/06/18 20:29 19:15 19:15 WBC 3.2 L RBC 2.69 L Hgb 7.3 L D Hct 22.8 L MCV 84.7 MCH 27.2 MCHC 32.1 L RDW 17.8 H Plt Count 50 L D MPV 7.1 L Neut % (Auto) 61.3 Lymph % (Auto) 22.9 Mclennan % (Auto) 12.8 H Eos % (Auto) 1.9 Baso % (Auto) 1.1 Neut # (Auto) 1.9 Lymph # (Auto) 0.7 L Mclennan # (Auto) 0.4 Eos # (Auto) 0.1 Baso # (Auto) 0.0 Sodium 145 Potassium 3.4 L Chloride 111 H Carbon Dioxide 25 Anion Gap 12 BUN 15 Creatinine 0.6 L Est GFR ( Amer) > 60 Est GFR (Non-Af Amer) > 60 POC Glucose (mg/dL) Random Glucose 124 H Calcium 8.8 Magnesium 1.7 Total Bilirubin 1.6 H AST 197 H D ALT 86 H D Alkaline Phosphatase 256 H D Troponin I < 0.0120 Total Protein 7.3 Albumin 3.1 L Globulin 4.2 H Albumin/Globulin Ratio 0.7 L Stool Occult Blood Negative 04/06/18 18:08 WBC RBC Hgb Hct MCV MCH MCHC RDW Plt Count MPV Neut % (Auto) Lymph % (Auto) Mclennan % (Auto) Eos % (Auto) Baso % (Auto) Neut # (Auto) Lymph # (Auto) Mclennan # (Auto) Eos # (Auto) Baso # (Auto) Sodium Potassium Chloride Carbon Dioxide Anion Gap BUN Creatinine Est GFR ( Amer) Est GFR (Non-Af Amer) POC Glucose (mg/dL) 153 H Random Glucose Calcium Magnesium Total Bilirubin AST ALT Alkaline Phosphatase Troponin I Total Protein Albumin Globulin Albumin/Globulin Ratio Stool Occult Blood
--- NOTE | 2018-04-07 05:06 | ED PDOC ---
- Laboratory Results Result Diagrams: 04/06/18 19:15 04/06/18 19:15 - ECG O2 Sat by Pulse Oximetry: 100 (RA) Pulse Ox Interpretation: Normal Medical Decision Making Medical Decision Makin:00 --care will be continued pending US of gallbladder 07:00 --Patient endorsed to Dr. Sousa pending gallbladder US and final disposition. Scribe Attestation: Documented by Gloria Moran acting as a scribe for Amanda Washington MD Provider Scribe Attestation: All medical record entries made by the Scribe were at my direction and persona lly dictated by me. I have reviewed the chart and agree that the record accurately reflects my personal performance of the history, physical exam, medical decision making, and the department course for this patient. I have also personally directed, reviewed, and agree with the discharge instructions and disposition. Disposition - Clinical Impression Clinical Impression: Gallstones, Alcohol abuse, Enteritis - POA Present On Arrival: None - Disposition Disposition: Transfer of Care Disposition Time: 07:00 Condition: STABLE Forms: [employer] (Surinamese) Patient Signed Over To: Jonathan Sousa
[2018-04-07 09:42] LABS: BASO # 0.1 K/uL (0.0-0.2); BASO % 4.1 % (0.0-2.0); EOS % 2.7 % (0.0-4.0); LYMPH # 0.4 K/uL (1.0-4.3); LYMPH % 32.7 % (20.0-40.0); MEAN CORPUSCULAR HEMOGLOBIN 26.7 pg (27.0-31.0); MEAN CORPUSCULAR HGB CONC 31.4 g/dL (33.0-37.0); MEAN PLATELET VOLUME 6.9 fl (7.2-11.7); MONO # 0.2 K/uL (0.0-0.8); MONO % 15.4 % (0.0-10.0); NEUT # 0.6 K/uL (1.8-7.0); NEUT % 45.1 % (50.0-75.0); NRBC % 0.1 % (0.0-0.0); PLATELET COUNT 38 K/uL (130-400); RBC 2.31 Mil/uL (4.40-5.90); RED CELL DISTRIBUTION WIDTH 17.8 % (11.5-14.5)
[2018-04-07 09:45] LABS: HEMOGLOBIN 6.2 g/dL (12.0-18.0); WHITE BLOOD COUNT 1.3 K/uL (4.8-10.8)
--- NOTE | 2018-04-07 09:47 | CT ---
Date of service: 04/06/2018 PROCEDURE: CT HEAD WITHOUT CONTRAST. HISTORY: HEAD INJURY COMPARISON: 04/06/2018 at 6:40 a.m. TECHNIQUE: Axial computed tomography images were obtained through the head/brain without intravenous contrast. Radiation dose: Total exam DLP = 1620.19 mGy-cm. This CT exam was performed using one or more of the following dose reduction techniques: Automated exposure control, adjustment of the mA and/or kV according to patient size, and/or use of iterative reconstruction technique. FINDINGS: HEMORRHAGE: No intracranial hemorrhage. BRAIN: No mass effect or edema. There is mild diffuse atrophy. There is moderate patchy and confluent periventricular and deep/subcortical white matter lucency consistent with microvascular ischemic change. VENTRICLES: Unremarkable. No hydrocephalus. CALVARIUM: No fracture. There is left frontal scalp contusion with swelling of the left superior palpebrum. No intraorbital hemorrhage. The globes are rounded and symmetric. PARANASAL SINUSES: Chronic bilateral maxillary, ethmoid and sphenoid sinusitis. MASTOID AIR CELLS: Unremarkable as visualized. No inflammatory changes. OTHER FINDINGS: None. IMPRESSION: No intracranial hemorrhage. Mild atrophy and moderate chronic white matter ischemic change. Left frontal scalp contusion with swelling of left superior palpebrum but no intraorbital hemorrhage appreciated. Chronic paranasal sinusitis. The preliminary findings for this examination were reported by [facility] at 7:31 p.m. on 04/06/2018. There is concurrence of this report with the preliminary findings.
--- NOTE | 2018-04-07 09:49 | ED PDOC ---
- Laboratory Results Result Diagrams: 04/07/18 09:25 04/06/18 19:15 - ECG O2 Sat by Pulse Oximetry: 99 Disposition - Clinical Impression Clinical Impression: Gallstones, Alcohol abuse, Enteritis, Severe anemia - POA Present On Arrival: None - Disposition Disposition: Admitted as In-Patient Disposition Time: 09:49 Condition: FAIR Forms: [facility] (Hebrew)
--- NOTE | 2018-04-07 10:24 | CARD ---
APPROVED REPORT Date of service: 04/06/2018 EKG Measurement Heart [id number] <Conclusion> Normal sinus rhythm Normal ECG
--- NOTE | 2018-04-07 10:34 | US ---
Date of service: 04/07/2018 HISTORY: assess for cholecysytitis COMPARISON: None. TECHNIQUE: Sonographic evaluation of the right upper quadrant of the abdomen. FINDINGS: LIVER: Measures 18.3 cm in length. Diffusely increased echogenicity of the liver parenchyma. Consistent with fatty infiltration. Nodular contour consistent with hepatic cirrhosis. No mass. No biliary ductal dilatation. There is a TIPS shunt present with normal flow direction demonstrated. No evidence of thrombosis. GALLBLADDER: Cholelithiasis. No mural thickening. No pericholecystic fluid. Negative sonographic Monte sign. COMMON BILE DUCT: Measures 9 mm. No stones. No dilatation. PANCREAS: Unremarkable as visualized. No mass. No ductal dilatation. RIGHT KIDNEY: Measures 12.0 cm in length. Normal echogenicity. No calculus, mass, or hydronephrosis. AORTA: unremarkable. No aneurysm. IVC: Unremarkable. OTHER FINDINGS: None . IMPRESSION: Hepatic cirrhosis. Mild hepatomegaly. Fatty infiltration of the liver. TIPS shunt identified with normal flow direction demonstrated. Cholelithiasis without evidence of cholecystitis.
[2018-04-07 10:36] LABS: ANISOCYTOSIS SLIGHT; BANDS 2 % (0-2); BASOPHIL 4 % (0-2); LYMPHOCYTE 30 % (20-50); MONOCYTE 10 % (0-10); NEUTROPHIL 54 % (42-75); PLATELET ESTIMATE MARKEDLY DECREASED (NORMAL); POIKILOCYTOSIS SLIGHT; SPHEROCYTES MODERATE; TOTAL CELLS COUNTED 50
[2018-04-07 10:37] LABS: HYPOCHROMIC SLIGHT; MICROCYTOSIS SLIGHT; TEARDROP CELLS SLIGHT
[2018-04-07 10:38] LABS: LARGE PLATELETS PRESENT
[2018-04-07] MEDS: Sodium Chloride 0.9% 1,000 ML IV SCH ×2 (11:08→11:19)
--- NOTE | 2018-04-07 11:15 | CP.PCM.HP ---
<Melanie Page - Last Filed: 04/07/18 14:35> History of Present Illness - History of Present Illness History of Present Illness: CC: "I fell" HPI: 52 YO with PMHx of ETOH abuse, unwitnessed seizures, cirrhosis (s/p TIPS), hepatic encephalopathy is seen in [facility] ED after a fall. Pt states that yesterday he had a seizure, does not recall the time and during the episode he fell and hit his face on the door and fell to the floor. Pt does not recall rest of the event but remembers being brought in to the hospital via ambulance. Per nursing note, EMS found pt on the floor and a bottle of alcohol was found laying next to patient. Today, pt states that he has some pain in his right rib, and is t hirsty. Last ETOH intake was 1 week ago per patient, and had "alot of Vodka." Denies headache, dizziness, dyspnea, abdominal pain, n/v/d/c, emesis, epitasix, blood in stool or dark BM, last BM this AM. PMD: none PMHx: ETOH abuse, unwitnessed seizures, cirrhosis (s/p TIPS), hepatic encephalopathy, esophageal varices Surgical hx: TIPs in 2014 Social hx: smoker; 3 cigarettes a day, 1.5 ppd previously, etoh abuse Family hx: father CA, mother smoker and of lung cancer, sister diagnosed with colon cancer, recently Allergies: asprin, ibuprofen, naproxen, NSAIDs (nausea for all of them) Next of Kin: [facility] [phone] Full code Present on Admission - Present on Admission Any Indicators Present on Admission: No Review of Systems - Constitutional Constitutional: absent: Headache - EENT Eyes: Pain (around L orbit ) - Cardiovascular Cardiovascular: Chest Pain (R ribs). absent: Dyspnea - Respiratory Respiratory: absent: Cough, Dyspnea - Gastrointestinal Gastrointestinal: absent: Abdominal Pain, Diarrhea - Genitourinary Genitourinary: absent: Dysuria, Hematuria - Neurological Neurological: absent: Dizziness, Headaches Past Patient History - Infectious Disease Hx of Infectious Diseases: None - Tetanus Immunizations Tetanus Immunization: Unknown - Past Medical History & Family History Past Medical History?: Yes - Past Social History Smoking Status: Former Smoker Alcohol: > 2 Drinks/Day - CARDIAC Hx Congestive Heart Failure: No Hx Hypercholesterolemia: No - NEUROLOGICAL Hx Seizures: Yes - HEENT Hx HEENT Problems: No - RENAL Hx Chronic Kidney Disease: No - ENDOCRINE/METABOLIC Hx Endocrine Disorders: No - HEMATOLOGICAL/ONCOLOGICAL Hx Anemia: Yes Hx Human Immunodeficiency Virus (HIV): No - INTEGUMENTARY Hx Dermatological Problems: Yes Hx Cellulitis: Yes - MUSCULOSKELETAL/RHEUMATOLOGICAL Hx Fractures: Yes (rib, left shoulder, left hand 5th digit, humerus) - GASTROINTESTINAL Hx Gall Bladder Disease: Yes (Cholelithiasis) Hx Gastritis: Yes Hx Pancreatitis: Yes - GENITOURINARY/GYNECOLOGICAL Hx Sexually Transmitted Disorders: No - PSYCHIATRIC Hx Anxiety: Yes - SURGICAL HISTORY Hx Surgeries: Yes - ANESTHESIA Hx Anesthesia: Yes Hx Anesthesia Reactions: No Hx Malignant Hyperthermia: No Meds Allergies/Adverse Reactions: Allergies Allergy/AdvReac Type Severity Reaction Status Date / Time aspirin Allergy NAUSEA Verified 04/06/18 18:01 ibuprofen [From Motrin] Allergy NAUSEA Verified 04/06/18 18:01 naproxen Allergy RASH Verified 04/06/18 18:01 NSAIDS (Non-Steroidal Allergy NAUSEA Verified 04/06/18 18:01 Anti-Inflamma Physical Exam - Constitutional Appears: No Acute Distress - Eye Exam Eye Exam: EOMI Additional comments: L eye: Periorbital contusions noted Mild conjunctiva - ENT Exam ENT Exam: Mucous Membranes Moist - Respiratory Exam Respiratory Exam: Clear to Auscultation Bilateral, NORMAL BREATHING PATTERN. absent: Wheezes - Cardiovascular Exam Cardiovascular Exam: REGULAR RHYTHM, +S1, +S2 Additional comments: No contusions or lesions noted on inspection of the chest. tenderness to palpation around R5-7 laterally - GI/Abdominal Exam GI & Abdominal Exam: Normal Bowel Sounds, Soft. absent: Guarding, Tenderness - Extremities Exam Extremities exam: Positive for: normal inspection. Negative for: calf tenderness, pedal edema Additional comments: Old scar, well healed Upper ext tremor noted on extension - Neurological Exam Neurological exam: Alert - Skin Skin Exam: Pallor Results - Vital Signs Recent Vital Signs: Last Vital Signs Temp 98 F 04/07/18 07:50 Pulse 69 04/07/18 07:50 Resp 18 04/07/18 07:50 BP 119/69 04/07/18 07:50 Pulse Ox 99 04/07/18 09:49 - Labs Result Diagrams: 04/07/18 09:25 04/06/18 19:15 Labs: Laboratory Results - last 24 hr 04/06/18 04/06/18 04/06/18 18:08 19:15 19:15 WBC 3.2 L RBC 2.69 L Hgb 7.3 L D Hct 22.8 L MCV 84.7 MCH 27.2 MCHC 32.1 L RDW 17.8 H Plt Count 50 L D MPV 7.1 L Neut % (Auto) 61.3 Lymph % (Auto) 22.9 Banner % (Auto) 12.8 H Eos % (Auto) 1.9 Baso % (Auto) 1.1 Neut # (Auto) 1.9 Lymph # (Auto) 0.7 L Banner # (Auto) 0.4 Eos # (Auto) 0.1 Baso # (Auto) 0.0 Neutrophils % (Manual) Band Neutrophils % Lymphocytes % (Manual) Monocytes % (Manual) Basophils % (Manual) Platelet Estimate Large Platelets Hypochromasia (manual) Poikilocytosis (manual Anisocytosis (manual) Microcytosis (manual) Macrocytosis (manual) Spherocytes Tear Drop Cells Sodium 145 Potassium 3.4 L Chloride 111 H Carbon Dioxide 25 Anion Gap 12 BUN 15 Creatinine 0.6 L Est GFR ( Amer) > 60 Est GFR (Non-Af Amer) > 60 POC Glucose (mg/dL) 153 H Random Glucose 124 H Calcium 8.8 Magnesium 1.7 Total Bilirubin 1.6 H AST 197 H D ALT 86 H D Alkaline Phosphatase 256 H D Troponin I < 0.0120 Total Protein 7.3 Albumin 3.1 L Globulin 4.2 H Albumin/Globulin Ratio 0.7 L Lipase Stool Occult Blood Blood Type Antibody Screen Crossmatch BBK History Checked 04/06/18 04/07/18 04/07/18 20:29 04:35 09:25 WBC 1.3 L* D RBC 2.31 L Hgb 6.2 L* Hct 19.6 L MCV 85.0 MCH 26.7 L MCHC 31.4 L RDW 17.8 H Plt Count 38 L MPV 6.9 L Neut % (Auto) 45.1 L Lymph % (Auto) 32.7 Banner % (Auto) 15.4 H Eos % (Auto) 2.7 Baso % (Auto) 4.1 H Neut # (Auto) 0.6 L Lymph # (Auto) 0.4 L Banner # (Auto) 0.2 Eos # (Auto) 0.0 Baso # (Auto) 0.1 Neutrophils % (Manual) 54 Band Neutrophils % 2 Lymphocytes % (Manual) 30 Monocytes % (Manual) 10 Basophils % (Manual) 4 H Platelet Estimate Markedly decreased L Large Platelets Present Hypochromasia (manual) Slight Poikilocytosis (manual Slight Anisocytosis (manual) Slight Microcytosis (manual) Slight Macrocytosis (manual) Slight Spherocytes Moderate Tear Drop Cells Slight Sodium Potassium Chloride Carbon Dioxide Anion Gap BUN Creatinine Est GFR ( Amer) Est GFR (Non-Af Amer) POC Glucose (mg/dL) Random Glucose Calcium Magnesium Total Bilirubin AST ALT Alkaline Phosphatase Troponin I Total Protein Albumin Globulin Albumin/Globulin Ratio Lipase 332 H Stool Occult Blood Negative Blood Type Antibody Screen Crossmatch BBK History Checked 04/07/18 09:25 WBC RBC Hgb Hct MCV MCH MCHC RDW Plt Count MPV Neut % (Auto) Lymph % (Auto) Banner % (Auto) Eos % (Auto) Baso % (Auto) Neut # (Auto) Lymph # (Auto) Banner # (Auto) Eos # (Auto) Baso # (Auto) Neutrophils % (Manual) Band Neutrophils % Lymphocytes % (Manual) Monocytes % (Manual) Basophils % (Manual) Platelet Estimate Large Platelets Hypochromasia (manual) Poikilocytosis (manual Anisocytosis (manual) Microcytosis (manual) Macrocytosis (manual) Spherocytes Tear Drop Cells Sodium Potassium Chloride Carbon Dioxide Anion Gap BUN Creatinine Est GFR ( Amer) Est GFR (Non-Af Amer) POC Glucose (mg/dL) Random Glucose Calcium Magnesium Total Bilirubin AST ALT Alkaline Phosphatase Troponin I Total Protein Albumin Globulin Albumin/Globulin Ratio Lipase Stool Occult Blood Blood Type O POSITIVE Antibody Screen Negative Crossmatch See Detail BBK History Checked Patient has bt Assessment & Plan - Assessment and Plan (Free Text) Assessment: Assessment/Plan: 52 YO with PMHx of ETOH abuse, unwitnessed seizures, cirrhosis (s/p TIPS), hepatic encephalograph is admitted for anemia requiring blood transfusion. Normocytic anemia -hx of iron deficiency anemia with hx of GI bleed req multiple transfusions in the past -transfuse 2 units of PRBC -cont protonix -no acute GI bleeding, FOBT x1 neg -post transfusion blood work in AM Pancytopenia -chronic, stable -ANC 612, moderate neutropenia -likely 2/2 to live failure vs bone marrow suppression 2/2 to etoh abuse/liver failure Hx of Seizures, Fall -likely 2/2 to ETOH Abuse vs seizure, unwitnessed -cont Keppra 500 IV PO -CT head neg, CT orbit: acute nondisplaced fracture R frontal process of soila xilla. Moderate orbital soft tissue hematoma, CT spine degenerative changes. -tobramycin drops Cirrhosis 2/2 ETOH abuse -MELD score: 14, 6% 3 month mortality, Child-Squires score: 9 (02/2018) -CIWA score 5, CIWA protocol prn -transaminitis -u/s sig for cirrhosis Hypokalemia -replace prn -KCl 20meq PO x 1 DVT prophylaxis -SCDs <Promise Spencenino D - Last Filed: 04/07/18 23:01> Results - Vital Signs Recent Vital Signs: Last Vital Signs Temp 99.2 F 04/07/18 22:28 Pulse 95 H 04/07/18 22:28 Resp 18 04/07/18 22:28 BP 132/72 04/07/18 22:28 Pulse Ox 98 04/07/18 20:09 - Labs Result Diagrams: 04/07/18 09:25 04/06/18 19:15 Labs: Laboratory Results - last 24 hr 04/07/18 04/07/18 04/07/18 04:35 09:25 09:25 WBC 1.3 L* D RBC 2.31 L Hgb 6.2 L* Hct 19.6 L MCV 85.0 MCH 26.7 L MCHC 31.4 L RDW 17.8 H Plt Count 38 L MPV 6.9 L Neut % (Auto) 45.1 L Lymph % (Auto) 32.7 Banner % (Auto) 15.4 H Eos % (Auto) 2.7 Baso % (Auto) 4.1 H Neut # (Auto) 0.6 L Lymph # (Auto) 0.4 L Banner # (Auto) 0.2 Eos # (Auto) 0.0 Baso # (Auto) 0.1 Neutrophils % (Manual) 54 Band Neutrophils % 2 Lymphocytes % (Manual) 30 Monocytes % (Manual) 10 Basophils % (Manual) 4 H Platelet Estimate Markedly decreased L Large Platelets Present Hypochromasia (manual) Slight Poikilocytosis (manual Slight Anisocytosis (manual) Slight Microcytosis (manual) Slight Macrocytosis (manual) Slight Spherocytes Moderate Tear Drop Cells Slight Lipase 332 H Blood Type O POSITIVE Antibody Screen Negative Crossmatch See Detail BBK History Checked Patient has bt Attending/Attestation - Attestation I have personally seen and examined this patient.: Yes I have fully participated in the care of the patient.: Yes I have reviewed all pertinent clinical information: Yes Notes (Text): 04/07/18 23:00 Patient seen and examined with resident. Case discussed and agreed with assessment and plan of management.
--- NOTE | 2018-04-07 11:40 | CT ---
Date of service: 04/06/2018 PROCEDURE: CT Cervical Spine without contrast HISTORY: NECK PAIN COMPARISON: None available. TECHNIQUE: Axial computed tomography images were obtained of the cervical spine without the use of intravenous contrast. Coronal and sagittal reformatted images were created and reviewed. Radiation dose: Total exam DLP = 403.64 mGy-cm. This CT exam was performed using one or more of the following dose reduction techniques: Automated exposure control, adjustment of the mA and/or kV according to patient size, and/or use of iterative reconstruction technique. FINDINGS: VERTEBRAE: Vertebral bodies maintained in height. There is grade 1 anterolisthesis at C5-6 associated with narrowing of the disc space, likely degenerative in origin. Normal alignment is maintained elsewhere. The atlantoaxial articulation and odontoid process are intact. DISCS/SPINAL CANAL/NEURAL FORAMINA: There is narrowing of the C 5-6 and C6-7 intervertebral disc spaces consistent with degenerative disc disease. The remaining intervertebral disc spaces are maintained in height. PARASPINAL SOFT TISSUES: Unremarkable. OTHER FINDINGS: None. IMPRESSION: No evidence of fracture. Grade 1 anterolisthesis at C5-6 likely degenerative in origin. Degenerative disc disease C5-6 and C6-7. No other acute abnormality. The preliminary findings for this examination were reported by [facility] at 7:43 p.m. on 04/06/2018. There is concurrence of this report with the preliminary findings.
--- NOTE | 2018-04-07 11:42 | CT ---
Date of service: 04/06/2018 PROCEDURE: CT MAXILLOFACIAL BONES WITHOUT CONTRAST HISTORY: FACIAL INJURY COMPARISON: None available. TECHNIQUE: Contiguous axial CT images of the maxillofacial bones were obtained. Coronal and sagittal reformats were generated. Radiation dose: Total exam DLP = 0.0 mGy-cm. This CT exam was performed using one or more of the following dose reduction techniques: Automated exposure control, adjustment of the mA and/or kV according to patient size, and/or use of iterative reconstruction technique. FINDINGS: NASAL BONES: There is an acute nondisplaced fracture in the right frontal process of maxilla. There is mild overlying soft tissue swelling there is no acute fracture in the left nasal bone. ORBITS: No acute fracture. There is moderate left periorbital soft tissue hematoma. No intraorbital hematoma or radiopaque foreign body. No evidence for lens dislocation. PARANASAL SINUSES/ MASTOIDS: There is mild mucoperiosteal thickening in the ethmoid air cells, sphenoid sinus and both maxillary sinuses and retention cysts/polyps in the maxillary sinuses. There are small mastoid effusions. MAXILLA: No acute maxillofacial fracture. MANDIBLE/ TEMPOROMANDIBULAR JOINTS: No acute fracture or dislocation. SKULL BASE: Unremarkable. TEMPORAL BONES: Middle ears and mastoid grossly unremarkable. OTHER FINDINGS: None. IMPRESSION: Acute nondisplaced fracture in the right frontal process of maxilla. No acute orbital or maxillofacial fracture. Moderate left periorbital soft tissue hematoma. Chronic ethmoid, maxillary and sphenoid sinusitis, worse in the maxillary sinuses with retention cysts/polyps. A preliminary report was provided by [employer].
[2018-04-07] MEDS ORDERED: Potassium Chloride 20 mEq ER Tab PO ONE (12:03)
--- NOTE | 2018-04-07 12:39 | CT ---
Date of service: 04/06/2018 PROCEDURE: CT Abdomen and Pelvis with contrast HISTORY: Abdominal pain, post seizure COMPARISON: 03/04/2018. TECHNIQUE: CT scan of the abdomen and pelvis was performed after t administration of intravenous contrast. Oral contrast was not administered. Coronal and sagittal reformatted images were obtained. Contrast dose: 95 mL Omnipaque 300 Radiation dose: Total exam DLP = 712.03 mGy-cm. This CT exam was performed using one or more of the following dose reduction techniques: Automated exposure control, adjustment of the mA and/or kV according to patient size, and/or use of iterative reconstruction technique. FINDINGS: LOWER THORAX: The lung bases are clear. LIVER: Enlarged nodular cirrhotic liver. A TIPS stent remains in place GALLBLADDER AND BILE DUCTS: Gallbladder is partially contracted. There are calcified gallstones. PANCREAS: Normal in size with homogeneous enhancement. No gross lesion or ductal dilatation. SPLEEN: Moderate splenomegaly. ADRENALS: Unremarkable. No mass. KIDNEYS AND URETERS: Normal in size with homogeneous enhancement. No hydronephrosis. No solid mass. VASCULATURE: No aortic aneurysm. Extensive portosystemic varices. BOWEL: The small bowel loops are normal in caliber. There is mild circumferential mural thickening in the terminal ileum. There is mild mucosal thickening and enhancement in the duodenum. There is large amount of stool in the colon and fecal impaction in the rectum. APPENDIX: Normal appendix. PERITONEUM: No free fluid. No free air. LYMPH NODES: No enlarged lymph nodes. BLADDER: Well distended and normal in appearance. REPRODUCTIVE: The prostate gland is normal in size. BONES: No acute fracture. Diffuse bone demineralization. OTHER FINDINGS: None. IMPRESSION: Mild circumferential mural thickening in the terminal ileum and mild mural thickening and enhancement in the duodenum could represent nonspecific duodenitis and enteritis. Severe constipation with fecal impaction in the rectum. No evidence for bowel obstruction. Cirrhosis of liver and moderate hepatosplenomegaly with portosystemic varices. A TIPS portosystemic shunt remains in place. Cholelithiasis. A preliminary report was provided by [facility].
[2018-04-07] MEDS: Tobramycin 0.3% OPHT SOLN OS SCH ×3 (13:00→22:15)
[2018-04-08] MEDS: Sodium Chloride 0.9% 1,000 ML IV SCH ×3 (00:47→17:31)
[2018-04-08 05:49] LABS: INR 1.8
[2018-04-08 05:56] LABS: BASO % 0.1 % (0.0-2.0); BLOOD UREA NITROGEN 12 mg/dl (9-20); CALCIUM 8.1 mg/dL (8.4-10.2); EOS # 0.1 K/uL (0.0-0.7); EOS % 2.5 % (0.0-4.0); GFR NON-AFRICAN AMERICAN > 60; HEMOGLOBIN 8.4 g/dL (12.0-18.0); LYMPH # 0.6 K/uL (1.0-4.3); LYMPH % 30.1 % (20.0-40.0); MEAN CELL VOLUME 84.4 fl (80.0-94.0); MEAN CORPUSCULAR HGB CONC 33.2 g/dL (33.0-37.0); MEAN PLATELET VOLUME 7.3 fl (7.2-11.7); MONO # 0.3 K/uL (0.0-0.8); MONO % 14.6 % (0.0-10.0); NEUT # 1.1 K/uL (1.8-7.0); NEUT % 52.7 % (50.0-75.0); NRBC % 0.3 % (0.0-0.0); RBC 2.98 Mil/uL (4.40-5.90); WHITE BLOOD COUNT 2.1 K/uL (4.8-10.8)
--- NOTE | 2018-04-08 08:14 | CP.PCM.PN ---
<Melanie Page - Last Filed: 04/08/18 11:26> Subjective - Date & Time of Evaluation Date of Evaluation: 04/08/18 Time of Evaluation: 08:14 - Subjective Subjective: S/p 2 units of PRBC. Pt seen and examined this AM. States that he is feeling better then yesterday. Mild pain in his L eye, but improving. Denies chest pain, dyspnea, palpitations, abdominal pain, n/v. Objective - Vital Signs/Intake and Output Vital Signs (last 24 hours): Temp Pulse Resp BP Pulse Ox 98.4 F 75 18 138/72 100 04/08/18 08:00 04/08/18 08:00 04/08/18 08:00 04/08/18 08:00 04/08/18 08:00 Intake and Output: 04/08/18 04/08/18 06:59 18:59 Intake Total 0 Balance 0 - Medications Medications: Current Medications Acetaminophen (Tylenol 325mg Tab) 650 mg PO Q4 PRN PRN Reason: Fever >100.4 F Last Admin: 04/07/18 11:20 Dose: 650 mg Calcium Carbonate (Oscal) 500 mg PO DAILY [facility] Sodium Chloride (Sodium Chloride 0.9%) 1,000 mls @ 100 mls/hr IV .Q10H JANNIE Last Admin: 04/07/18 11:08 Dose: 100 mls/hr Sodium Chloride (Sodium Chloride 0.9%) 1,000 mls @ 100 mls/hr IV .Q10H JANNIE Stop: 04/08/18 11:03 Last Admin: 04/08/18 00:47 Dose: 100 mls/hr Lactulose (Enulose) 20 gm PO Q12 JANNIE Levetiracetam (Keppra) 500 mg PO Q12H JANNIE Last Admin: 04/07/18 22:15 Dose: 500 mg Pantoprazole Sodium (Protonix Ec Tab) 40 mg PO DAILY [facility] Tobramycin Sulfate (Tobrex 0.3% Ophth Soln) 1 drop OS QID [facility] Last Admin: 04/07/18 22:15 Dose: 1 drop - Labs Labs: 04/08/18 05:15 04/08/18 05:15 PT 20.0 Seconds (9.8-13.1) H 04/08/18 05:15 INR 1.8 04/08/18 05:15 - Constitutional Appears: No Acute Distress - Head Exam Head Exam: NORMAL INSPECTION - Eye Exam Eye Exam: EOMI - ENT Exam ENT Exam: Mucous Membranes Moist - Respiratory Exam Respiratory Exam: Clear to Ausculation Bilateral, NORMAL BREATHING PATTERN. absent: Wheezes - Cardiovascular Exam Cardiovascular Exam: REGULAR RHYTHM, +S1, +S2 - GI/Abdominal Exam GI & Abdominal Exam: Soft, Normal Bowel Sounds. absent: Guarding, Tenderness - Extremities Exam Extremities Exam: Normal Inspection - Neurological Exam Neurological Exam: Alert, Awake - Skin Skin Exam: Pallor Assessment and Plan - Assessment and Plan (Free Text) Assessment: Assessment/Plan: 52 YO with PMHx of ETOH abuse, unwitnessed seizures, cirrhosis (s/p TIPS), hepatic encephalograph is admitted for anemia requiring blood transfusion. Normocytic anemia -hx of iron deficiency anemia with hx of GI bleed req multiple transfusions in the past -s/p 2 units of PRBC -h/h stable post transfusion, no acute bleeding -cont protonix -FOBT x1 neg Pancytopenia -chronic, stable -ANC 1106.7 -likely 2/2 to live failure vs bone marrow suppression 2/2 to etoh abuse/liver failure Hx of Seizures, Fall -likely 2/2 to ETOH Abuse vs seizure, unwitnessed -cont Keppra 500 IV PO -CT head neg, CT orbit: acute nondisplaced fracture R frontal process of maxilla. Moderate orbital soft tissue hematoma, CT spine degenerative changes. -tobramycin drops -PT on board, pending recs Cirrhosis -2/2 ETOH abuse -MELD score: 15, 6% 3 month mortality, Child-Squires score: 8, class B -CIWA score 4 today -CIWA protocol prn -transaminitis -u/s sig for cirrhosis -Ammonia elevated, start lactulose BID Hypokalemia, hypocalcemia -resolved -calcium carbonate PO DVT prophylaxis -SCDs <Spence,Man D - Last Filed: 04/08/18 13:18> Objective - Vital Signs/Intake and Output Vital Signs (last 24 hours): Temp Pulse Resp BP Pulse Ox 98.6 F 97 H 18 157/83 H 95 04/08/18 12:04 04/08/18 12:04 04/08/18 12:04 04/08/18 12:04 04/08/18 12:04 Intake and Output: 04/08/18 04/08/18 06:59 18:59 Intake Total 0 Balance 0 - Medications Medications: Current Medications Acetaminophen (Tylenol 325mg Tab) 650 mg PO Q4 PRN PRN Reason: Fever >100.4 F Last Admin: 04/07/18 11:20 Dose: 650 mg Calcium Carbonate (Oscal) 500 mg PO DAILY [facility] Last Admin: 04/08/18 11:15 Dose: 500 mg Folic Acid (Folic Acid) 1 mg PO DAILY [facility] Last Admin: 04/08/18 12:55 Dose: 1 mg Sodium Chloride (Sodium Chloride 0.9%) 1,000 mls @ 100 mls/hr IV .Q10H [facility] Last Admin: 04/07/18 11:08 Dose: 100 mls/hr Lactulose (Enulose) 20 gm PO Q12 [facility] Last Admin: 04/08/18 09:32 Dose: Not Given Levetiracetam (Keppra) 500 mg PO Q12H [facility] Last Admin: 04/08/18 11:15 Dose: 500 mg Lorazepam (Ativan) 1 mg PO Q8 PRN PRN Reason: Agitation Pantoprazole Sodium (Protonix Ec Tab) 40 mg PO DAILY [facility] Last Admin: 04/08/18 09:22 Dose: 40 mg Thiamine HCl (Vitamin B1 Tab) 100 mg PO DAILY [facility] Last Admin: 04/08/18 12:55 Dose: 100 mg Tobramycin Sulfate (Tobrex 0.3% Ophth Soln) 1 drop OS QID [facility] Last Admin: 04/08/18 12:55 Dose: 1 drop - Labs Labs: 04/08/18 05:15 04/08/18 05:15 PT 20.0 Seconds (9.8-13.1) H 04/08/18 05:15 INR 1.8 04/08/18 05:15 Attending/Attestation - Attestation I have personally seen and examined this patient.: Yes I have fully participated in the care of the patient.: Yes I have reviewed all pertinent clinical information, including history, physical exam and plan: Yes Notes (Text): 04/08/18 13:17 Patient seen and examined with resident. Case discussed and agreed with assessment and plan of management.
[2018-04-08] MEDS: Pantoprazole 40 mg EC Tab PO SCH (09:22)
[2018-04-08] MEDS: Tobramycin 0.3% OPHT SOLN OS SCH ×4 (11:16→21:52)
[2018-04-09] MEDS: Sodium Chloride 0.9% 1,000 ML IV SCH ×4 (04:29→23:04)
[2018-04-09 07:30] LABS: BASO % 1.2 % (0.0-2.0); EOS # 0.1 K/uL (0.0-0.7); EOS % 3.4 % (0.0-4.0); HEMOGLOBIN 7.8 g/dL (12.0-18.0); LYMPH # 0.5 K/uL (1.0-4.3); LYMPH % 20.8 % (20.0-40.0); MEAN CELL VOLUME 84.4 fl (80.0-94.0); MEAN CORPUSCULAR HEMOGLOBIN 26.9 pg (27.0-31.0); MEAN CORPUSCULAR HGB CONC 31.9 g/dL (33.0-37.0); MEAN PLATELET VOLUME 7.7 fl (7.2-11.7); MONO # 0.3 K/uL (0.0-0.8); MONO % 14.3 % (0.0-10.0); NEUT # 1.3 K/uL (1.8-7.0); NEUT % 60.3 % (50.0-75.0); NRBC % 0.1 % (0.0-0.0); RBC 2.88 Mil/uL (4.40-5.90); RED CELL DISTRIBUTION WIDTH 16.9 % (11.5-14.5); WHITE BLOOD COUNT 2.2 K/uL (4.8-10.8)
[2018-04-09 08:15] LABS: ALB/GLOB RATIO 0.6 (1.0-2.1); ALBUMIN 2.5 g/dL (3.5-5.0); ALT/SGPT 52 U/L (21-72); AST/SGOT 111 U/L (17-59); BLOOD UREA NITROGEN 11 mg/dl (9-20); GFR NON-AFRICAN AMERICAN > 60
[2018-04-09] MEDS: Pantoprazole 40 mg EC Tab PO SCH (09:28)
[2018-04-09] MEDS: Tobramycin 0.3% OPHT SOLN OS SCH ×4 (09:29→22:03)
--- NOTE | 2018-04-09 11:22 | CP.PCM.DIS ---
Provider - Provider Date of Admission: 04/07/18 09:47 Attending physician: Man Spence MD Time Spent in preparation of Discharge (in minutes): 35 Diagnosis - Discharge Diagnosis (1) Severe anemia Status: Acute (2) ETOH abuse Status: Chronic (3) Fall Status: Acute (4) Seizures Status: Acute Hospital Course - Lab Results Lab Results: Most Recent Lab Values WBC 2.2 K/uL (4.8-10.8) L 04/09/18 06:00 RBC 2.88 Mil/uL (4.40-5.90) L 04/09/18 06:00 Hgb 7.8 g/dL (12.0-18.0) L 04/09/18 06:00 Hct 24.3 % (35.0-51.0) L 04/09/18 06:00 MCV 84.4 fl (80.0-94.0) 04/09/18 06:00 MCH 26.9 pg (27.0-31.0) L 04/09/18 06:00 MCHC 31.9 g/dL (33.0-37.0) L 04/09/18 06:00 RDW 16.9 % (11.5-14.5) H 04/09/18 06:00 Plt Count 43 K/uL (130-400) L 04/09/18 06:00 MPV 7.7 fl (7.2-11.7) 04/09/18 06:00 Neut % (Auto) 60.3 % (50.0-75.0) 04/09/18 06:00 Lymph % (Auto) 20.8 % (20.0-40.0) 04/09/18 06:00 [place] % (Auto) 14.3 % (0.0-10.0) H 04/09/18 06:00 Eos % (Auto) 3.4 % (0.0-4.0) 04/09/18 06:00 Baso % (Auto) 1.2 % (0.0-2.0) 04/09/18 06:00 Neut # (Auto) 1.3 K/uL (1.8-7.0) L 04/09/18 06:00 Lymph # (Auto) 0.5 K/uL (1.0-4.3) L 10/20/18 06:00 [place] # (Auto) 0.3 K/uL (0.0-0.8) 04/09/18 06:00 Eos # (Auto) 0.1 K/uL (0.0-0.7) 04/09/18 06:00 Baso # (Auto) 0.0 K/uL (0.0-0.2) 04/09/18 06:00 Neutrophils % (Manual) 54 % (42-75) 04/07/18 09:25 Band Neutrophils % 2 % (0-2) 04/07/18 09:25 Lymphocytes % (Manual) 30 % (20-50) 04/07/18 09:25 Monocytes % (Manual) 10 % (0-10) 04/07/18 09:25 Basophils % (Manual) 4 % (0-2) H 04/07/18 09:25 Platelet Estimate Markedly decreased (NORMAL) L 04/07/18 09:25 Large Platelets Present 04/07/18 09:25 Hypochromasia (manual) Slight 04/07/18 09:25 Poikilocytosis (manual Slight 04/07/18 09:25 Anisocytosis (manual) Slight 04/07/18 09:25 Microcytosis (manual) Slight 04/07/18 09:25 Macrocytosis (manual) Slight 04/07/18 09:25 Spherocytes Moderate 04/07/18 09:25 Tear Drop Cells Slight 04/07/18 09:25 PT 20.0 Seconds (9.8-13.1) H 04/08/18 05:15 INR 1.8 04/08/18 05:15 Sodium 137 mmol/l (132-148) 04/09/18 06:00 Potassium 3.7 MMOL/L (3.6-5.0) 04/09/18 06:00 Chloride 113 mmol/L (98-107) H 04/09/18 06:00 Carbon Dioxide 23 mmol/L (22-30) 04/09/18 06:00 Anion Gap 5 (10-20) L 04/09/18 06:00 BUN 11 mg/dl (9-20) 04/09/18 06:00 Creatinine 0.5 mg/dl (0.8-1.5) L 04/09/18 06:00 Est GFR ( Amer) > 60 04/09/18 06:00 Est GFR (Non-Af Amer) > 60 04/09/18 06:00 POC Glucose (mg/dL) 153 mg/dL (65-110) H 04/06/18 18:08 Random Glucose 102 mg/dL (75-110) 04/09/18 06:00 Calcium 8.0 mg/dL (8.4-10.2) L 04/09/18 06:00 Phosphorus 3.8 mg/dl (2.5-4.5) 04/09/18 06:00 Magnesium 1.4 MG/DL (1.6-2.3) L 04/09/18 06:00 Total Bilirubin 2.2 mg/dl (0.2-1.3) H 04/09/18 06:00 AST 111 U/L (17-59) H D 04/09/18 06:00 ALT 52 U/L (21-72) 04/09/18 06:00 Alkaline Phosphatase 183 U/L (38-126) H D 04/09/18 06:00 Ammonia 130 umo/L (16-60) H* D 04/09/18 06:00 Troponin I < 0.0120 ng/mL (0.00-0.120) 04/06/18 19:15 Total Protein 6.3 G/DL (6.3-8.2) 04/09/18 06:00 Albumin 2.5 g/dL (3.5-5.0) L 04/09/18 06:00 Globulin 3.8 gm/dL (2.2-3.9) 04/09/18 06:00 Albumin/Globulin Ratio 0.6 (1.0-2.1) L 04/09/18 06:00 Lipase 332 U/L (23-300) H 04/07/18 04:35 Stool Occult Blood Negative (NEGATIVE) 04/06/18 20:29 Blood Type O POSITIVE 04/07/18 09:25 Antibody Screen Negative 04/07/18 09:25 Crossmatch See Detail 04/07/18 09:25 BBK History Checked Patient has bt 04/07/18 09:25 Discharge Exam - Head Exam Head Exam: NORMAL INSPECTION - Eye Exam Eye Exam: EOMI, Normal appearance - ENT Exam ENT Exam: Mucous Membranes Moist - Respiratory Exam Respiratory Exam: Clear to PA & Lateral, NORMAL BREATHING PATTERN. absent: Wheezes - Cardiovascular Exam Cardiovascular Exam: REGULAR RHYTHM, +S1, +S2 - GI/Abdominal Exam GI & Abdominal Exam: Normal Bowel Sounds, Soft. absent: Tenderness - Extremities Exam Extremities exam: normal inspection - Neurological Exam Neurological exam: Alert, Oriented x3 - Skin Skin Exam: Normal Color, Warm Discharge Plan - Discharge Medications Prescriptions: Folic Acid 1 mg PO DAILY #30 tab Lactulose [Enulose] 10 gm PO BID #30 ml Thiamine [Vitamin B1 Tab] 100 mg PO DAILY #30 tab - Follow Up Plan Condition: FAIR Disposition: HOME/ ROUTINE Patient education suggested?: Yes Instructions: Anemia of Chronic Disease (DC), Alcohol Use - When Is Drinking a Problem?, Seizures, Adult (DC), Normocytic Normochromic Anemia (DC) Additional Instructions: Please follow up in [facility] in 1 week ER precautions for worsening symptoms, fever over 100.4 with Tylenol. Referrals: [facility] [Outside]
--- NOTE | 2018-04-09 11:50 | CP.PCM.PN ---
<Melanie Page - Last Filed: 04/09/18 11:51> Subjective - Date & Time of Evaluation Date of Evaluation: 04/09/18 Time of Evaluation: 08:30 - Subjective Subjective: No acute overnight events. Pt states that he is feeling better but continues to have lower ext weakness. Endorsing mild pain in his L eye but improving. Denies chest pain, dyspnea, palpitations, fevers and chills. Objective - Vital Signs/Intake and Output Vital Signs (last 24 hours): Temp Pulse Resp BP Pulse Ox 98.3 F 78 20 130/65 98 04/09/18 08:21 04/09/18 08:21 04/09/18 08:21 04/09/18 08:21 04/09/18 08:21 - Medications Medications: Current Medications Acetaminophen (Tylenol 325mg Tab) 650 mg PO Q4 PRN PRN Reason: Fever >100.4 F Last Admin: 04/07/18 11:20 Dose: 650 mg Calcium Carbonate (Oscal) 500 mg PO DAILY [facility] Last Admin: 04/09/18 09:28 Dose: 500 mg Folic Acid (Folic Acid) 1 mg PO DAILY [facility] Last Admin: 04/09/18 09:28 Dose: 1 mg Sodium Chloride (Sodium Chloride 0.9%) 1,000 mls @ 100 mls/hr IV .Q10H [facility] Last Admin: 04/09/18 04:30 Dose: 100 mls/hr Lactulose (Enulose) 20 gm PO QID [facility] Last Admin: 04/09/18 09:28 Dose: 20 gm Levetiracetam (Keppra) 500 mg PO Q12H [facility] Last Admin: 04/08/18 21:52 Dose: 500 mg Lorazepam (Ativan) 1 mg PO Q8 PRN PRN Reason: Agitation Last Admin: 04/08/18 20:46 Dose: 1 mg Magnesium Oxide (Mag-Ox) 400 mg PO DAILY [facility] Pantoprazole Sodium (Protonix Ec Tab) 40 mg PO DAILY [facility] Last Admin: 04/09/18 09:28 Dose: 40 mg Thiamine HCl (Vitamin B1 Tab) 100 mg PO DAILY [facility] Last Admin: 04/09/18 09:29 Dose: 100 mg Tobramycin Sulfate (Tobrex 0.3% Ophth Soln) 1 drop OS QID [facility] Last Admin: 04/09/18 09:29 Dose: 1 drop - Labs Labs: 04/09/18 06:00 04/09/18 06:00 PT 20.0 Seconds (9.8-13.1) H 04/08/18 05:15 INR 1.8 04/08/18 05:15 - Constitutional Appears: No Acute Distress - Head Exam Head Exam: NORMAL INSPECTION - Eye Exam Eye Exam: Normal appearance - ENT Exam ENT Exam: Mucous Membranes Moist Additional comments: contusion around L eye, conjunctiva clearing up, decreasing erythematous - Respiratory Exam Respiratory Exam: Clear to Ausculation Bilateral, NORMAL BREATHING PATTERN. absent: Wheezes - Cardiovascular Exam Cardiovascular Exam: REGULAR RHYTHM, +S1, +S2 - GI/Abdominal Exam GI & Abdominal Exam: Soft, Normal Bowel Sounds. absent: Tenderness - Extremities Exam Extremities Exam: Normal Inspection Additional comments: upper ext tremor on extension old scabs noted on knees - Neurological Exam Neurological Exam: Alert, Awake - Psychiatric Exam Psychiatric exam: Normal Mood Assessment and Plan (1) Severe anemia Status: Acute (2) ETOH abuse Status: Chronic (3) Fall Status: Acute (4) Seizures Status: Acute (5) Liver cirrhosis, alcoholic Status: Chronic - Assessment and Plan (Free Text) Assessment: Assessment/Plan: 52 YO with PMHx of ETOH abuse, unwitnessed seizures, cirrhosis (s/p TIPS), hepatic encephalograph is admitted for anemia requiring blood transfusion. Normocytic anemia -hx of iron deficiency anemia with hx of GI bleed req multiple transfusions in the past -s/p 2 units of PRBC -h/h stable post transfusion, no acute bleeding -cont protonix -FOBT x1 neg Pancytopenia -chronic, stable -likely 2/2 to live failure vs bone marrow suppression 2/2 to etoh abuse/liver failure Hx of Seizures, Fall -likely 2/2 to ETOH Abuse vs seizure, unwitnessed -cont Keppra 500 IV PO -CT head neg, CT orbit: acute nondisplaced fracture R frontal process of maxilla. Moderate orbital soft tissue hematoma, CT spine degenerative changes. -tobramycin drops -PT on board, follow up recs Cirrhosis, ETOH abuse -Chronic -MELD score: 15, 6% 3 month mortality, Child-Squires score: 8, class B -CIWA score 4 -CIWA protocol prn, ativan on board -Ammonia elevated, c/w lactulose QID -c/w folic acid, thiamine DVT prophylaxis -SCDs <Man Spence D - Last Filed: 04/09/18 12:08> Objective - Vital Signs/Intake and Output Vital Signs (last 24 hours): Temp Pulse Resp BP Pulse Ox 98.3 F 78 20 130/65 98 04/09/18 08:21 04/09/18 08:21 04/09/18 08:21 04/09/18 08:21 04/09/18 08:21 - Medications Medications: Current Medications Acetaminophen (Tylenol 325mg Tab) 650 mg PO Q4 PRN PRN Reason: Fever >100.4 F Last Admin: 04/07/18 11:20 Dose: 650 mg Calcium Carbonate (Oscal) 500 mg PO DAILY [facility] Last Admin: 04/09/18 09:28 Dose: 500 mg Folic Acid (Folic Acid) 1 mg PO DAILY [facility] Last Admin: 04/09/18 09:28 Dose: 1 mg Sodium Chloride (Sodium Chloride 0.9%) 1,000 mls @ 100 mls/hr IV .Q10H [facility] Last Admin: 04/09/18 04:30 Dose: 100 mls/hr Lactulose (Enulose) 20 gm PO QID [facility] Last Admin: 04/09/18 09:28 Dose: 20 gm Levetiracetam (Keppra) 500 mg PO Q12H [facility] Last Admin: 04/08/18 21:52 Dose: 500 mg Lorazepam (Ativan) 1 mg PO Q8 PRN PRN Reason: Agitation Last Admin: 04/08/18 20:46 Dose: 1 mg Magnesium Oxide (Mag-Ox) 400 mg PO DAILY [facility] Pantoprazole Sodium (Protonix Ec Tab) 40 mg PO DAILY [facility] Last Admin: 04/09/18 09:28 Dose: 40 mg Thiamine HCl (Vitamin B1 Tab) 100 mg PO DAILY [facility] Last Admin: 04/09/18 09:29 Dose: 100 mg Tobramycin Sulfate (Tobrex 0.3% Ophth Soln) 1 drop OS QID [facility] Last Admin: 04/09/18 09:29 Dose: 1 drop - Labs Labs: 04/09/18 06:00 04/09/18 06:00 PT 20.0 Seconds (9.8-13.1) H 04/08/18 05:15 INR 1.8 04/08/18 05:15 Attending/Attestation - Attestation I have personally seen and examined this patient.: Yes I have fully participated in the care of the patient.: Yes I have reviewed all pertinent clinical information, including history, physical exam and plan: Yes Notes (Text): 04/09/18 12:06 Patient seen and examined with resident. Patient very unstable on ambulation and risk of falling is very high. Patient fully admitted and would need assistance from social service and PT for gait training.
[2018-04-09] MEDS: Magnesium Oxide 400 mg Tab UD PO SCH (17:00)
[2018-04-10 07:36] LABS: BLOOD UREA NITROGEN 10 mg/dl (9-20); CALCIUM 7.7 mg/dL (8.4-10.2); GFR NON-AFRICAN AMERICAN > 60
[2018-04-10 07:57] LABS: BASO % 0.5 % (0.0-2.0); EOS % 1.6 % (0.0-4.0); HEMOGLOBIN 7.9 g/dL (12.0-18.0); LYMPH # 0.7 K/uL (1.0-4.3); LYMPH % 30.1 % (20.0-40.0); MEAN CELL VOLUME 83.5 fl (80.0-94.0); MEAN CORPUSCULAR HEMOGLOBIN 27.3 pg (27.0-31.0); MEAN CORPUSCULAR HGB CONC 32.7 g/dL (33.0-37.0); MEAN PLATELET VOLUME 7.2 fl (7.2-11.7); MONO # 0.3 K/uL (0.0-0.8); MONO % 11.6 % (0.0-10.0); NEUT # 1.3 K/uL (1.8-7.0); NEUT % 56.2 % (50.0-75.0); NRBC % 0.3 % (0.0-0.0); RBC 2.87 Mil/uL (4.40-5.90); RED CELL DISTRIBUTION WIDTH 17.1 % (11.5-14.5); WHITE BLOOD COUNT 2.3 K/uL (4.8-10.8)
--- NOTE | 2018-04-10 09:20 | CP.PCM.PN ---
<Marii Sandoval - Last Filed: 04/10/18 14:24> Subjective - Date & Time of Evaluation Date of Evaluation: 04/10/18 Time of Evaluation: 09:00 - Subjective Subjective: No Acute overnight events. Pt feels fatigue and weak complains of R rib and L eye pain. Good appetite. Denies SOB, nausea, vomiting, diarrhea or constipation. Objective - Vital Signs/Intake and Output Vital Signs (last 24 hours): Temp Pulse Resp BP Pulse Ox 98.0 F 79 20 129/62 100 04/10/18 08:44 04/10/18 08:44 04/10/18 08:44 04/10/18 08:44 04/10/18 08:44 - Medications Medications: Current Medications Acetaminophen (Tylenol 325mg Tab) 650 mg PO Q4 PRN PRN Reason: Fever >100.4 F Last Admin: 04/10/18 00:14 Dose: 650 mg Calcium Carbonate (Oscal) 500 mg PO DAILY [facility] Last Admin: 04/09/18 09:28 Dose: 500 mg Folic Acid (Folic Acid) 1 mg PO DAILY [facility] Last Admin: 04/09/18 09:28 Dose: 1 mg Sodium Chloride (Sodium Chloride 0.9%) 1,000 mls @ 100 mls/hr IV .Q10H [facility] Last Admin: 04/09/18 23:04 Dose: 100 mls/hr Lactulose (Enulose) 20 gm PO QID [facility] Last Admin: 04/09/18 22:03 Dose: Not Given Levetiracetam (Keppra) 500 mg PO Q12H [facility] Last Admin: 04/09/18 23:04 Dose: 500 mg Lorazepam (Ativan) 1 mg PO Q8 PRN PRN Reason: Agitation Last Admin: 04/08/18 20:46 Dose: 1 mg Magnesium Oxide (Mag-Ox) 400 mg PO DAILY [facility] Last Admin: 04/09/18 17:00 Dose: 400 mg Pantoprazole Sodium (Protonix Ec Tab) 40 mg PO DAILY [facility] Last Admin: 04/09/18 09:28 Dose: 40 mg Thiamine HCl (Vitamin B1 Tab) 100 mg PO DAILY [facility] Last Admin: 04/09/18 09:29 Dose: 100 mg Tobramycin Sulfate (Tobrex 0.3% Ophth Soln) 1 drop OS QID [facility] Last Admin: 04/09/18 22:03 Dose: 1 drop - Labs Labs: 04/10/18 06:30 04/10/18 06:30 PT 20.0 Seconds (9.8-13.1) H 04/08/18 05:15 INR 1.8 04/08/18 05:15 - Constitutional Appears: Non-toxic, No Acute Distress - Head Exam Head Exam: NORMOCEPHALIC Additional comments: Trauma and hematoma to L orbital and L maxilla. - Eye Exam Eye Exam: Conjunctival injection (L eye), EOMI, Periorbital swelling, PERRL Pupil Exam: NORMAL ACCOMODATION - ENT Exam ENT Exam: Mucous Membranes Moist - Respiratory Exam Respiratory Exam: Clear to Ausculation Bilateral, NORMAL BREATHING PATTERN - Cardiovascular Exam Cardiovascular Exam: RRR, +S1, +S2 - GI/Abdominal Exam GI & Abdominal Exam: Soft, Normal Bowel Sounds - Extremities Exam Extremities Exam: Normal Inspection - Neurological Exam Neurological Exam: Alert, Awake, Oriented x3 Assessment and Plan - Assessment and Plan (Free Text) Assessment: 52 yo homeless M with PMHx of ETOH abuse, unwitnessed seizures, cirrhosis (s/p TIPS), hepatic encephalograph is admitted for anemia requiring blood transfusion. Normocytic anemia -hx of iron deficiency anemia with hx of GI bleed req multiple transfusions in the past -s/p 2 units of PRBC -h/h stable post transfusion (Hg 7.9), no acute bleeding -cont protonix -FOBT x1 neg -F/u CBC and CMP in AM Pancytopenia -chronic, stable -likely 2/2 to live failure vs bone marrow suppression 2/2 to etoh abuse/liver failure -F/u CBC and CMP in AM Hx of Seizures, Fall -likely 2/2 to ETOH Abuse vs seizure, unwitnessed -cont Keppra 500 PO -CT head neg, CT orbit: acute nondisplaced fracture R frontal process of maxilla. Moderate orbital soft tissue hematoma, CT spine degenerative changes. -tobramycin drops -PT on board, follow up recs, social work-follow recs Cirrhosis, ETOH abuse -Chronic -MELD score: 15, 6% 3 month mortality, Child-Squires score: 8, class B -CIWA score 4 -CIWA protocol prn, ativan on board -Ammonia elevated 93 down from 130 , c/w lactulose QID -c/w folic acid, thiamine, Ca, Mg DVT prophylaxis -SCDs <Man Spence D - Last Filed: 04/10/18 15:21> Objective - Vital Signs/Intake and Output Vital Signs (last 24 hours): Temp Pulse Resp BP Pulse Ox 98.0 F 75 20 113/57 L 100 04/10/18 12:17 04/10/18 12:17 04/10/18 12:17 04/10/18 12:17 04/10/18 12:17 - Medications Medications: Current Medications Acetaminophen (Tylenol 325mg Tab) 650 mg PO Q4 PRN PRN Reason: Fever >100.4 F Last Admin: 04/10/18 00:14 Dose: 650 mg Calcium Carbonate (Oscal) 500 mg PO DAILY [facility] Last Admin: 04/10/18 09:49 Dose: 500 mg Folic Acid (Folic Acid) 1 mg PO DAILY [facility] Last Admin: 04/10/18 09:48 Dose: 1 mg Sodium Chloride (Sodium Chloride 0.9%) 1,000 mls @ 100 mls/hr IV .Q10H [facility] Last Admin: 04/10/18 12:45 Dose: 100 mls/hr Lactulose (Enulose) 20 gm PO QID [facility] Last Admin: 04/10/18 12:43 Dose: 20 gm Levetiracetam (Keppra) 500 mg PO Q12H [facility] Last Admin: 04/10/18 12:43 Dose: 500 mg Lorazepam (Ativan) 1 mg PO Q8 PRN PRN Reason: Agitation Last Admin: 04/08/18 20:46 Dose: 1 mg Magnesium Oxide (Mag-Ox) 400 mg PO DAILY [facility] Last Admin: 04/10/18 09:49 Dose: 400 mg Pantoprazole Sodium (Protonix Ec Tab) 40 mg PO DAILY [facility] Last Admin: 04/10/18 09:49 Dose: 40 mg Thiamine HCl (Vitamin B1 Tab) 100 mg PO DAILY [facility] Last Admin: 04/10/18 09:50 Dose: 100 mg Tobramycin Sulfate (Tobrex 0.3% Ophth Soln) 1 drop OS QID [facility] Last Admin: 04/10/18 12:43 Dose: 1 drop - Labs Labs: 04/10/18 06:30 04/10/18 06:30 PT 20.0 Seconds (9.8-13.1) H 10/19/18 05:15 INR 1.8 04/08/18 05:15 Attending/Attestation - Attestation I have personally seen and examined this patient.: Yes I have fully participated in the care of the patient.: Yes I have reviewed all pertinent clinical information, including history, physical exam and plan: Yes Notes (Text): 04/10/18 15:20 Patient seen and examined with resident. Case discussed and agreed with assessment and plan of management.
[2018-04-10] MEDS: Tobramycin 0.3% OPHT SOLN OS SCH ×4 (09:49→22:49)
[2018-04-10] MEDS: Magnesium Oxide 400 mg Tab UD PO SCH (09:49)
[2018-04-10] MEDS: Pantoprazole 40 mg EC Tab PO SCH (09:49)
[2018-04-10] MEDS: Sodium Chloride 0.9% 1,000 ML IV SCH ×2 (12:45→22:50)
[2018-04-11 06:29] LABS: BASO % 1.6 % (0.0-2.0); EOS # 0.1 K/uL (0.0-0.7); EOS % 3.7 % (0.0-4.0); HEMOGLOBIN 7.8 g/dL (12.0-18.0); LYMPH # 0.6 K/uL (1.0-4.3); LYMPH % 23.7 % (20.0-40.0); MEAN CELL VOLUME 84.6 fl (80.0-94.0); MEAN CORPUSCULAR HEMOGLOBIN 27.3 pg (27.0-31.0); MEAN CORPUSCULAR HGB CONC 32.3 g/dL (33.0-37.0); MEAN PLATELET VOLUME 7.4 fl (7.2-11.7); MONO # 0.4 K/uL (0.0-0.8); NEUT # 1.4 K/uL (1.8-7.0); RBC 2.86 Mil/uL (4.40-5.90); RED CELL DISTRIBUTION WIDTH 17.3 % (11.5-14.5); WHITE BLOOD COUNT 2.5 K/uL (4.8-10.8)
[2018-04-11 06:51] LABS: ALB/GLOB RATIO 0.6 (1.0-2.1); ALBUMIN 2.6 g/dL (3.5-5.0); ALT/SGPT 54 U/L (21-72); AST/SGOT 94 U/L (17-59); BLOOD UREA NITROGEN 11 mg/dl (9-20); CALCIUM 8.2 mg/dL (8.4-10.2); GFR NON-AFRICAN AMERICAN > 60
[2018-04-11] MEDS: Magnesium Oxide 400 mg Tab UD PO SCH (08:42)
[2018-04-11] MEDS: Tobramycin 0.3% OPHT SOLN OS SCH ×4 (08:42→23:01)
[2018-04-11] MEDS: Pantoprazole 40 mg EC Tab PO SCH (08:42)
[2018-04-11] MEDS: Sodium Chloride 0.9% 1,000 ML IV SCH (08:43)
--- NOTE | 2018-04-11 10:27 | CP.PCM.PN ---
<Melanie Page - Last Filed: 04/11/18 10:30> Subjective - Date & Time of Evaluation Date of Evaluation: 04/11/18 Time of Evaluation: 08:15 - Subjective Subjective: No acute overnight events. Pt endorsing pain in his R Rib. Tolerating PO diet, continues to have lower ext weakness. Pt encouraged to see PT today, states that he will work with them. Objective - Vital Signs/Intake and Output Vital Signs (last 24 hours): Temp Pulse Resp BP Pulse Ox 98.6 F 87 20 114/63 97 04/11/18 08:00 04/11/18 08:00 04/11/18 08:00 04/11/18 08:00 04/11/18 08:00 - Medications Medications: Current Medications Acetaminophen (Tylenol 325mg Tab) 650 mg PO Q4 PRN PRN Reason: Fever >100.4 F Last Admin: 04/10/18 00:14 Dose: 650 mg Calcium Carbonate (Oscal) 500 mg PO DAILY [facility] Last Admin: 04/11/18 08:42 Dose: 500 mg Folic Acid (Folic Acid) 1 mg PO DAILY [facility] Last Admin: 04/11/18 08:42 Dose: 1 mg Sodium Chloride (Sodium Chloride 0.9%) 1,000 mls @ 100 mls/hr IV .Q10H [facility] Last Admin: 04/11/18 08:43 Dose: 100 mls/hr Lactulose (Enulose) 20 gm PO QID [facility] Last Admin: 04/11/18 08:44 Dose: Not Given Levetiracetam (Keppra) 500 mg PO Q12H [facility] Last Admin: 04/10/18 22:49 Dose: 500 mg Lorazepam (Ativan) 1 mg PO Q8 PRN PRN Reason: Agitation Last Admin: 04/11/18 00:53 Dose: 1 mg Magnesium Oxide (Mag-Ox) 400 mg PO DAILY [facility] Last Admin: 04/11/18 08:42 Dose: 400 mg Pantoprazole Sodium (Protonix Ec Tab) 40 mg PO DAILY [facility] Last Admin: 04/11/18 08:42 Dose: 40 mg Thiamine HCl (Vitamin B1 Tab) 100 mg PO DAILY [facility] Last Admin: 04/11/18 08:42 Dose: 100 mg Tobramycin Sulfate (Tobrex 0.3% Ophth Soln) 1 drop OS QID [facility] Last Admin: 04/11/18 08:42 Dose: 1 drop - Labs Labs: 04/11/18 05:40 04/11/18 05:40 PT 20.0 Seconds (9.8-13.1) H 04/08/18 05:15 INR 1.8 04/08/18 05:15 - Constitutional Appears: No Acute Distress - Eye Exam Eye Exam: EOMI Additional comments: erythema on L conjunctiva, improving Periorbital contusions, improving - ENT Exam ENT Exam: Mucous Membranes Moist - Respiratory Exam Respiratory Exam: Clear to Ausculation Bilateral. absent: Wheezes - Cardiovascular Exam Cardiovascular Exam: REGULAR RHYTHM, +S1, +S2 - GI/Abdominal Exam GI & Abdominal Exam: Distended (mild ), Soft, Normal Bowel Sounds. absent: Tenderness - Extremities Exam Extremities Exam: absent: Calf Tenderness, Pedal Edema - Neurological Exam Neurological Exam: Alert, Awake, Oriented x3 - Skin Skin Exam: Pallor Assessment and Plan (1) Severe anemia Status: Acute (2) ETOH abuse Status: Chronic (3) Fall Status: Acute (4) Seizures Status: Acute (5) Liver cirrhosis, alcoholic Status: Chronic - Assessment and Plan (Free Text) Assessment: Assessment/Plan: 52 YO with PMHx of ETOH abuse, unwitnessed seizures, cirrhosis (s/p TIPS), hepatic encephalograph is admitted for anemia requiring blood transfusion. Normocytic anemia -hx of iron deficiency anemia with hx of GI bleed req multiple transfusions in the past -s/p 2 units of PRBC -h/h stable post transfusion, no acute bleeding -cont protonix -FOBT x1 neg Pancytopenia -chronic, stable -likely 2/2 to live failure vs bone marrow suppression 2/2 to etoh abuse/liver failure Hx of Seizures, Fall -likely 2/2 to ETOH Abuse vs seizure, unwitnessed -cont Keppra 500 IV PO -CT head neg, CT orbit: acute nondisplaced fracture R frontal process of maxilla. Moderate orbital soft tissue hematoma, CT spine degenerative changes. -tobramycin drops -PT on board, follow up recs Cirrhosis, ETOH abuse -Chronic -MELD score: 15, 6% 3 month mortality, Child-Squires score: 8, class B -CIWA score 4 -CIWA protocol prn, ativan on board -Ammonia elevated but improving, c/w lactulose QID -c/w folic acid, thiamine Low ext weakness -chronic -likely 2/2 to ETOH abuse -PT on board DVT prophylaxis -SCDs <Sandra Lei - Last Filed: 04/11/18 17:50> Objective - Vital Signs/Intake and Output Vital Signs (last 24 hours): Temp Pulse Resp BP Pulse Ox 99.3 F 89 20 114/69 97 04/11/18 16:24 04/11/18 16:24 04/11/18 16:24 04/11/18 16:24 04/11/18 16:24 - Medications Medications: Current Medications Acetaminophen (Tylenol 325mg Tab) 650 mg PO Q4 PRN PRN Reason: Fever >100.4 F Last Admin: 04/10/18 00:14 Dose: 650 mg Calcium Carbonate (Oscal) 500 mg PO DAILY [facility] Last Admin: 04/11/18 08:42 Dose: 500 mg Folic Acid (Folic Acid) 1 mg PO DAILY [facility] Last Admin: 04/11/18 08:42 Dose: 1 mg Sodium Chloride (Sodium Chloride 0.9%) 1,000 mls @ 100 mls/hr IV .Q10H [facility] Last Admin: 04/11/18 08:43 Dose: 100 mls/hr Lactulose (Enulose) 20 gm PO BID [facility] Last Admin: 04/11/18 16:44 Dose: Not Given Levetiracetam (Keppra) 500 mg PO Q12H [facility] Last Admin: 04/11/18 12:02 Dose: 500 mg Lorazepam (Ativan) 1 mg PO Q8 PRN PRN Reason: Agitation Last Admin: 04/11/18 14:46 Dose: 1 mg Magnesium Oxide (Mag-Ox) 400 mg PO DAILY [facility] Last Admin: 04/11/18 08:42 Dose: 400 mg Pantoprazole Sodium (Protonix Ec Tab) 40 mg PO DAILY [facility] Last Admin: 04/11/18 08:42 Dose: 40 mg Thiamine HCl (Vitamin B1 Tab) 100 mg PO DAILY [facility] Last Admin: 04/11/18 08:42 Dose: 100 mg Tobramycin Sulfate (Tobrex 0.3% Ophth Soln) 1 drop OS QID [facility] Last Admin: 04/11/18 16:44 Dose: 1 drop - Labs Labs: 04/11/18 05:40 04/11/18 05:40 PT 20.0 Seconds (9.8-13.1) H 04/08/18 05:15 INR 1.8 04/08/18 05:15 Attending/Attestation - Attestation I have personally seen and examined this patient.: Yes I have fully participated in the care of the patient.: Yes I have reviewed all pertinent clinical information, including history, physical exam and plan: Yes
[2018-04-12 06:09] LABS: BLOOD UREA NITROGEN 21 mg/dl (9-20); CALCIUM 7.9 mg/dL (8.4-10.2); GFR NON-AFRICAN AMERICAN > 60
[2018-04-12 06:21] LABS: BASO # 0.1 K/uL (0.0-0.2); BASO % 1.2 % (0.0-2.0); EOS # 0.1 K/uL (0.0-0.7); EOS % 2.9 % (0.0-4.0); HEMOGLOBIN 7.9 g/dL (12.0-18.0); LYMPH # 0.9 K/uL (1.0-4.3); LYMPH % 21.6 % (20.0-40.0); MEAN CELL VOLUME 83.7 fl (80.0-94.0); MEAN CORPUSCULAR HEMOGLOBIN 27.7 pg (27.0-31.0); MEAN CORPUSCULAR HGB CONC 33.1 g/dL (33.0-37.0); MEAN PLATELET VOLUME 7.5 fl (7.2-11.7); MONO # 0.7 K/uL (0.0-0.8); MONO % 16.8 % (0.0-10.0); NEUT # 2.5 K/uL (1.8-7.0); NEUT % 57.5 % (50.0-75.0); NRBC % 0.1 % (0.0-0.0); RBC 2.86 Mil/uL (4.40-5.90); RED CELL DISTRIBUTION WIDTH 17.6 % (11.5-14.5); WHITE BLOOD COUNT 4.3 K/uL (4.8-10.8)
[2018-04-12] MEDS: Magnesium Oxide 400 mg Tab UD PO SCH (09:04)
[2018-04-12] MEDS: Pantoprazole 40 mg EC Tab PO SCH (09:04)
[2018-04-12] MEDS: Tobramycin 0.3% OPHT SOLN OS SCH ×4 (09:05→22:15)
--- NOTE | 2018-04-12 09:32 | CP.PCM.PN ---
<Melanie Page - Last Filed: 04/12/18 10:19> Subjective - Date & Time of Evaluation Date of Evaluation: 04/12/18 Time of Evaluation: 09:00 - Subjective Subjective: Overnight per RN, pt was given Ativan due to agitation. Pt seen and examined by bedside this AM. Sleepy and groogy, seen eating breakfast. Pt is awake and alert. Endorsing lower ext weaknes. Pt encouraged to work with PT. Objective - Vital Signs/Intake and Output Vital Signs (last 24 hours): Temp Pulse Resp BP Pulse Ox 98.7 F 87 18 103/58 L 96 04/12/18 08:04 04/12/18 08:04 04/12/18 08:04 04/12/18 08:04 04/12/18 08:04 - Medications Medications: Current Medications Acetaminophen (Tylenol 325mg Tab) 650 mg PO Q4 PRN PRN Reason: Fever >100.4 F Last Admin: 04/10/18 00:14 Dose: 650 mg Calcium Carbonate (Oscal) 500 mg PO DAILY [facility] Last Admin: 04/12/18 09:04 Dose: 500 mg Folic Acid (Folic Acid) 1 mg PO DAILY [facility] Last Admin: 04/12/18 09:04 Dose: 1 mg Sodium Chloride (Sodium Chloride 0.9%) 1,000 mls @ 100 mls/hr IV .Q10H [facility] Last Admin: 04/11/18 08:43 Dose: 100 mls/hr Lactulose (Enulose) 20 gm PO BID [facility] Last Admin: 04/12/18 09:04 Dose: 20 gm Levetiracetam (Keppra) 500 mg PO Q12H [facility] Last Admin: 04/11/18 22:44 Dose: Not Given Lorazepam (Ativan) 1 mg PO Q8 PRN PRN Reason: Agitation Last Admin: 04/11/18 22:39 Dose: 1 mg Magnesium Oxide (Mag-Ox) 400 mg PO DAILY [facility] Last Admin: 04/12/18 09:04 Dose: 400 mg Pantoprazole Sodium (Protonix Ec Tab) 40 mg PO DAILY [facility] Last Admin: 04/12/18 09:04 Dose: 40 mg Thiamine HCl (Vitamin B1 Tab) 100 mg PO DAILY [facility] Last Admin: 04/12/18 09:04 Dose: 100 mg Tobramycin Sulfate (Tobrex 0.3% Ophth Soln) 1 drop OS QID [facility] Last Admin: 04/12/18 09:05 Dose: 1 drop - Labs Labs: 04/12/18 04:25 04/12/18 04:25 PT 20.0 Seconds (9.8-13.1) H 04/08/18 05:15 INR 1.8 04/08/18 05:15 - Constitutional Appears: No Acute Distress, Other (sleepy ) - Eye Exam Additional comments: L periorbital contusion, edema resolved - ENT Exam ENT Exam: Mucous Membranes Moist - Respiratory Exam Respiratory Exam: Clear to Ausculation Bilateral, NORMAL BREATHING PATTERN. absent: Wheezes - Cardiovascular Exam Cardiovascular Exam: REGULAR RHYTHM, +S1, +S2 - GI/Abdominal Exam GI & Abdominal Exam: Soft, Normal Bowel Sounds. absent: Tenderness - Extremities Exam Extremities Exam: Normal Inspection Additional comments: abrasions noted in RLE, old healing - Neurological Exam Neurological Exam: Alert, Awake - Skin Skin Exam: Pallor Assessment and Plan (1) Severe anemia Status: Acute (2) ETOH abuse Status: Chronic (3) Fall Status: Acute (4) Seizures Status: Acute (5) Liver cirrhosis, alcoholic Status: Chronic - Assessment and Plan (Free Text) Assessment: Assessment/Plan: 52 YO with PMHx of ETOH abuse, unwitnessed seizures, cirrhosis (s/p TIPS), hepatic encephalograph is admitted for anemia requiring blood transfusion. Normocytic anemia -improving, stable -s/p 2 units of PRBC -h/h stable post transfusion, no acute bleeding, FOBT neg x 1 Low ext weakness -chronic, worsening -likely 2/2 to ETOH abuse -c/w folic acid, thiamine -PT on board Hx of Seizures, Fall -likely 2/2 to ETOH Abuse vs seizure, unwitnessed -cont Keppra 500 IV PO Cirrhosis, ETOH abuse -Chronic -MELD score: 15, 6% 3 month mortality, Child-Squires score: 8, class B -CIWA score 4 -CIWA protocol prn, ativan on board -Ammonia elevated but improving, c/w lactulose QID -c/w folic acid, thiamine Pancytopenia -chronic, stable -likely 2/2 to live failure vs bone marrow suppression 2/2 to etoh abuse/liver failure DVT prophylaxis -SCDs due to thrombocytopenia <Sandra Lei - Last Filed: 04/12/18 16:28> Objective - Vital Signs/Intake and Output Vital Signs (last 24 hours): Temp Pulse Resp BP Pulse Ox 98.6 F 87 20 139/64 98 04/12/18 15:50 04/12/18 15:50 04/12/18 15:50 04/12/18 15:50 04/12/18 15:50 - Medications Medications: Current Medications Acetaminophen (Tylenol 325mg Tab) 650 mg PO Q4 PRN PRN Reason: Fever >100.4 F Last Admin: 04/10/18 00:14 Dose: 650 mg Calcium Carbonate (Oscal) 500 mg PO DAILY [facility] Last Admin: 04/12/18 09:04 Dose: 500 mg Folic Acid (Folic Acid) 1 mg PO DAILY [facility] Last Admin: 04/12/18 09:04 Dose: 1 mg Sodium Chloride (Sodium Chloride 0.9%) 1,000 mls @ 100 mls/hr IV .Q10H [facility] Last Admin: 04/11/18 08:43 Dose: 100 mls/hr Lactulose (Enulose) 20 gm PO BID [facility] Last Admin: 04/12/18 09:04 Dose: 20 gm Levetiracetam (Keppra) 500 mg PO Q12H [facility] Last Admin: 04/12/18 12:57 Dose: 500 mg Lorazepam (Ativan) 1 mg PO Q8 PRN PRN Reason: Agitation Last Admin: 04/11/18 22:39 Dose: 1 mg Magnesium Oxide (Mag-Ox) 400 mg PO DAILY [facility] Last Admin: 04/12/18 09:04 Dose: 400 mg Pantoprazole Sodium (Protonix Ec Tab) 40 mg PO DAILY [facility] Last Admin: 04/12/18 09:04 Dose: 40 mg Thiamine HCl (Vitamin B1 Tab) 100 mg PO DAILY [facility] Last Admin: 04/12/18 09:04 Dose: 100 mg Tobramycin Sulfate (Tobrex 0.3% Ophth Soln) 1 drop OS QID [facility] Last Admin: 04/12/18 09:05 Dose: 1 drop - Labs Labs: 04/12/18 04:25 04/12/18 04:25 PT 20.0 Seconds (9.8-13.1) H 04/08/18 05:15 INR 1.8 04/08/18 05:15 Attending/Attestation - Attestation I have personally seen and examined this patient.: Yes I have fully participated in the care of the patient.: Yes I have reviewed all pertinent clinical information, including history, physical exam and plan: Yes Notes (Text): Alcohol Withdrawal Cirrhosis with Hepatic Encephalopathy, Thrombocytopenia, Coagulopathy, Hx of TIPs Alcohol Withdrawal Seziure - cont supportive Care - not candidate for transplant, pt actively drinking despite very poor state of health - Physical therapy - refusing to take Lactulose at times due to diarrhea, start Rifaximin - start Nadolol -cont Keppra
[2018-04-12] MEDS: Sodium Chloride 0.9% 1,000 ML IV SCH ×2 (18:08→21:32)
[2018-04-13 06:52] LABS: BLOOD UREA NITROGEN 20 mg/dl (9-20); CALCIUM 7.9 mg/dL (8.4-10.2); GFR NON-AFRICAN AMERICAN > 60
[2018-04-13 06:58] LABS: EOS # 0.1 K/uL (0.0-0.7); EOS % 3.7 % (0.0-4.0); HEMOGLOBIN 7.9 g/dL (12.0-18.0); LYMPH # 0.7 K/uL (1.0-4.3); LYMPH % 17.1 % (20.0-40.0); MEAN CORPUSCULAR HEMOGLOBIN 27.5 pg (27.0-31.0); MEAN CORPUSCULAR HGB CONC 32.4 g/dL (33.0-37.0); MEAN PLATELET VOLUME 7.9 fl (7.2-11.7); MONO # 0.7 K/uL (0.0-0.8); MONO % 17.1 % (0.0-10.0); NEUT # 2.3 K/uL (1.8-7.0); NEUT % 61.1 % (50.0-75.0); NRBC % 0.4 % (0.0-0.0); RBC 2.85 Mil/uL (4.40-5.90); RED CELL DISTRIBUTION WIDTH 17.5 % (11.5-14.5); WHITE BLOOD COUNT 3.8 K/uL (4.8-10.8)
[2018-04-13] MEDS: Magnesium Oxide 400 mg Tab UD PO SCH (09:13)
[2018-04-13] MEDS: Pantoprazole 40 mg EC Tab PO SCH (09:14)
[2018-04-13] MEDS: Tobramycin 0.3% OPHT SOLN OS SCH ×4 (09:15→21:58)
--- NOTE | 2018-04-13 09:45 | CP.PCM.PN ---
<Melanie Page - Last Filed: 04/13/18 09:45> Subjective - Date & Time of Evaluation Date of Evaluation: 04/13/18 Time of Evaluation: 08:40 - Subjective Subjective: No acute overnight events. Pt worked with PT yesterday, continues to have unsteady gait. Endorsing some chest pain in R libs, but better with pain meds. Good PO intake. Objective - Vital Signs/Intake and Output Vital Signs (last 24 hours): Temp Pulse Resp BP Pulse Ox 98 F 62 18 115/51 L 100 04/13/18 08:08 04/13/18 08:08 04/13/18 08:08 04/13/18 08:08 04/13/18 08:08 - Medications Medications: Current Medications Acetaminophen (Tylenol 325mg Tab) 650 mg PO Q4 PRN PRN Reason: Fever >100.4 F Last Admin: 04/10/18 00:14 Dose: 650 mg Calcium Carbonate (Oscal) 500 mg PO DAILY [facility] Last Admin: 04/13/18 09:14 Dose: 500 mg Folic Acid (Folic Acid) 1 mg PO DAILY [facility] Last Admin: 04/13/18 09:13 Dose: 1 mg Sodium Chloride (Sodium Chloride 0.9%) 1,000 mls @ 100 mls/hr IV .Q10H [facility] Last Admin: 04/12/18 21:32 Dose: Not Given Lactulose (Enulose) 20 gm PO BID [facility] Last Admin: 04/13/18 09:13 Dose: Not Given Levetiracetam (Keppra) 500 mg PO Q12H [facility] Last Admin: 04/12/18 22:15 Dose: 500 mg Lorazepam (Ativan) 0.5 mg PO Q12 [facility] Magnesium Oxide (Mag-Ox) 400 mg PO DAILY [facility] Last Admin: 04/13/18 09:13 Dose: 400 mg Pantoprazole Sodium (Protonix Ec Tab) 40 mg PO DAILY [facility] Last Admin: 04/13/18 09:14 Dose: 40 mg Rifaximin (Xifaxan) 550 mg PO BID [facility]; Protocol Last Admin: 04/13/18 09:15 Dose: 550 mg Thiamine HCl (Vitamin B1 Tab) 100 mg PO DAILY [facility] Last Admin: 04/13/18 09:15 Dose: 100 mg Tobramycin Sulfate (Tobrex 0.3% Ophth Soln) 1 drop OS QID [facility] Last Admin: 04/13/18 09:15 Dose: 1 drop - Labs Labs: 04/13/18 04:51 04/13/18 04:51 PT 20.0 Seconds (9.8-13.1) H 04/08/18 05:15 INR 1.8 04/08/18 05:15 - Constitutional Appears: No Acute Distress - Head Exam Head Exam: NORMAL INSPECTION - Eye Exam Eye Exam: EOMI Additional comments: Minimal contusions around L orbit, edema resolved - ENT Exam ENT Exam: Mucous Membranes Moist - Respiratory Exam Respiratory Exam: Clear to Ausculation Bilateral, NORMAL BREATHING PATTERN. absent: Wheezes - Cardiovascular Exam Cardiovascular Exam: REGULAR RHYTHM, +S1, +S2 - GI/Abdominal Exam GI & Abdominal Exam: Soft, Normal Bowel Sounds. absent: Tenderness - Extremities Exam Extremities Exam: absent: Calf Tenderness, Pedal Edema Additional comments: Small abrasions noted in R knee, improving - Neurological Exam Neurological Exam: Alert, Awake - Skin Skin Exam: Pallor, Warm Assessment and Plan (1) Severe anemia Status: Acute (2) ETOH abuse Status: Chronic (3) Fall Status: Acute (4) Seizures Status: Acute (5) Liver cirrhosis, alcoholic Status: Chronic (6) Unsteady gait Status: Chronic - Assessment and Plan (Free Text) Assessment: Assessment/Plan: 52 YO with PMHx of ETOH abuse, unwitnessed seizures, cirrhosis (s/p TIPS), hepatic encephalograph is admitted for anemia requiring blood transfusion. More awake and alert, working with PT. Continues to have unsteady gait and at risk for fall. Hemodynamically stable, will transfer patient to med/surg. Low ext weakness/unsteady gait -chronic, worsening -likely 2/2 to ETOH abuse -c/w folic acid, thiamine -PT on board: [facility] Normocytic anemia -improving, stable -s/p 2 units of PRBC -h/h stable post transfusion, no acute bleeding, FOBT neg x 1 Hx of Seizures, Fall -likely 2/2 to ETOH Abuse vs seizure, unwitnessed -cont Keppra 500 IV PO -R rib pain, CXR pending Cirrhosis, ETOH abuse -Chronic -MELD score: 15, 6% 3 month mortality, Child-Squires score: 8, class B -CIWA score 4 -CIWA protocol prn, ativan on board -Ammonia elevated but improving, c/w lactulose QID -c/w folic acid, thiamine Pancytopenia -chronic, stable -likely 2/2 to live failure vs bone marrow suppression 2/2 to etoh abuse/liver failure DVT prophylaxis -SCDs due to thrombocytopenia <Sandra Lei - Last Filed: 04/13/18 16:32> Objective - Vital Signs/Intake and Output Vital Signs (last 24 hours): Temp Pulse Resp BP Pulse Ox 98.6 F 69 18 128/61 97 04/13/18 15:45 04/13/18 15:45 04/13/18 15:45 04/13/18 15:45 04/13/18 15:45 - Medications Medications: Current Medications Acetaminophen (Tylenol 325mg Tab) 650 mg PO Q4 PRN PRN Reason: Fever >100.4 F Last Admin: 04/10/18 00:14 Dose: 650 mg Calcium Carbonate (Oscal) 500 mg PO DAILY [facility] Last Admin: 04/13/18 09:14 Dose: 500 mg Folic Acid (Folic Acid) 1 mg PO DAILY [facility] Last Admin: 04/13/18 09:13 Dose: 1 mg Lactulose (Enulose) 20 gm PO BID [facility] Last Admin: 04/13/18 09:13 Dose: Not Given Levetiracetam (Keppra) 500 mg PO Q12H [facility] Last Admin: 04/13/18 13:28 Dose: 500 mg Lidocaine (Lidoderm) 1 ea TD DAILY [facility] Lorazepam (Ativan) 0.5 mg PO Q12 [facility] Magnesium Oxide (Mag-Ox) 400 mg PO DAILY [facility] Last Admin: 04/13/18 09:13 Dose: 400 mg Pantoprazole Sodium (Protonix Ec Tab) 40 mg PO DAILY [facility] Last Admin: 04/13/18 09:14 Dose: 40 mg Rifaximin (Xifaxan) 550 mg PO BID [facility]; Protocol Last Admin: 04/13/18 09:15 Dose: 550 mg Thiamine HCl (Vitamin B1 Tab) 100 mg PO DAILY [facility] Last Admin: 04/13/18 09:15 Dose: 100 mg Tobramycin Sulfate (Tobrex 0.3% Ophth Soln) 1 drop OS QID [facility] Last Admin: 04/13/18 13:28 Dose: 1 drop - Labs Labs: 04/13/18 04:51 04/13/18 04:51 PT 20.0 Seconds (9.8-13.1) H 04/08/18 05:15 INR 1.8 04/08/18 05:15 Attending/Attestation - Attestation I have personally seen and examined this patient.: Yes I have fully participated in the care of the patient.: Yes I have reviewed all pertinent clinical information, including history, physical exam and plan: Yes Notes (Text): Gait Instability likely due to longstanding Chronic Alcoholism, Wernicke's Syndrome - cont Thiamine - Physical therapy consulted rec [facility] - pt still unstable on his feet , needs assistance even to go to the toilet, he is homeless and unsafe to be d/c to the street Cirrhosis with Hepatic Enceph - cont Rifaximin - clinically better today , answers questions approppriately , follows simple commands
--- NOTE | 2018-04-13 12:49 | RAD ---
Date of service: 04/13/2018 PROCEDURE: Radiographs of the chest and bilateral ribs HISTORY: history of fall COMPARISON: 03/29/2018 TECHNIQUE: Frontal radiograph of the chest and multiple oblique radiographs of the bilateral ribs were obtained. FINDINGS: RIGHT RIBS: The right 7th 8th and 9th ribs are fractured minimal cortical offset trace displacement of the right 8th rib suggested. Findings similar. Apparent callus formation suggesting probable. subacute status favored. Correlate clinically Additional anterior rib fractures also apparently suggested per CT exam 03/20/2018 LEFT RIBS: Nondisplaced 9th rib fracture with apparent callus formation; chronicity indeterminate. Posterior left 8th rib fracture with sclerosis and callus-more chronic appearing- LUNGS: Clear. PLEURA: No pneumothorax or pleural fluid. CARDIOVASCULAR: Mild cardiomegaly. Probable minimal pulmonary vascular congestion. There is presence of aortic atherosclerotic calcification on x-ray. OTHER FINDINGS: Gastric fold thickening nonspecific gastritis 1 consideration. Incomplete distension another. Findings nonspecific but more prominent than typically seen. Similar TIP /stent/ over right upper abdominal quadrant unchanged Comminuted lateral right clavicular fracture slightly inferiorly displaced partially [id number] Extensive ossification or calcification borders the left humeral head extensive calcific bursitis and/or extensive calcific rotator cuff tendinopathy here compatible with this. A prior left humeral head fracture here in addition not excluded IMPRESSION: Multiple bilateral rib fractures vast majority of these have some callus formation. This specific chronicity of all of them is unknown. Nevertheless subacute to chronic fractures are favored. Acute on chronic not excluded. Clinical correlation with point tenderness is needed. No gross pneumothorax and no pleural effusion seen. Chronic appearing changes regarding the left humerus. Here clinical correlation recommended. Other findings as above. Other findings as above. Comments: Study marked for PA review .
[2018-04-13] MEDS: Sodium Chloride 0.9% 1,000 ML IV SCH (13:30)
[2018-04-13] MEDS: Lidocaine 5% Patch TD SCH (16:24)
[2018-04-13 21:14] VITALS: RESP 20
--- NOTE | 2018-04-14 07:48 | CP.PCM.PN ---
<Melanie Page - Last Filed: 04/14/18 11:09> Subjective - Date & Time of Evaluation Date of Evaluation: 04/14/18 Time of Evaluation: 09:15 - Subjective Subjective: No acute overnight events. Pt feels well, no tremors, awake, alert. Continues to endorse some R sided rib pain, better with PO meds and patch. Continues to have lower ext weakness, but improving. Objective - Vital Signs/Intake and Output Vital Signs (last 24 hours): Temp Pulse Resp BP Pulse Ox 98.4 F 79 20 96/58 L 95 04/14/18 00:22 04/14/18 00:22 04/14/18 00:22 04/14/18 00:22 04/14/18 00:22 - Medications Medications: Current Medications Acetaminophen (Tylenol 325mg Tab) 650 mg PO Q4 PRN PRN Reason: Fever >100.4 F Last Admin: 04/10/18 00:14 Dose: 650 mg Calcium Carbonate (Oscal) 500 mg PO DAILY [facility] Last Admin: 04/13/18 09:14 Dose: 500 mg Folic Acid (Folic Acid) 1 mg PO DAILY [facility] Last Admin: 04/13/18 09:13 Dose: 1 mg Lactulose (Enulose) 20 gm PO BID [facility] Last Admin: 04/13/18 16:31 Dose: Not Given Levetiracetam (Keppra) 500 mg PO Q12H [facility] Last Admin: 04/13/18 22:15 Dose: 500 mg Lidocaine (Lidoderm) 1 ea TD DAILY [facility] Last Admin: 04/13/18 16:24 Dose: 1 ea Lorazepam (Ativan) 0.5 mg PO Q12 [facility] Last Admin: 04/13/18 20:04 Dose: 0.5 mg Magnesium Oxide (Mag-Ox) 400 mg PO DAILY [facility] Last Admin: 04/13/18 09:13 Dose: 400 mg Pantoprazole Sodium (Protonix Ec Tab) 40 mg PO DAILY [facility] Last Admin: 04/13/18 09:14 Dose: 40 mg Rifaximin (Xifaxan) 550 mg PO BID [facility]; Protocol Last Admin: 04/13/18 17:55 Dose: 550 mg Thiamine HCl (Vitamin B1 Tab) 100 mg PO DAILY [facility] Last Admin: 04/13/18 09:15 Dose: 100 mg Tobramycin Sulfate (Tobrex 0.3% Oph Soln) 1 drop OS QID [facility] Last Admin: 04/13/18 21:58 Dose: 1 drop - Labs Labs: 04/13/18 04:51 04/13/18 04:51 PT 20.0 Seconds (9.8-13.1) H 04/08/18 05:15 INR 1.8 04/08/18 05:15 - Constitutional Appears: No Acute Distress - Eye Exam Eye Exam: EOMI Additional comments: periorbital contusion, improving- no edema - ENT Exam ENT Exam: Mucous Membranes Moist - Respiratory Exam Respiratory Exam: Chest Wall Tenderness (R sided, no contusion, edema or erythema noted ), Clear to Ausculation Bilateral, NORMAL BREATHING PATTERN. absent: Wheezes - Cardiovascular Exam Cardiovascular Exam: REGULAR RHYTHM, +S1, +S2 - GI/Abdominal Exam GI & Abdominal Exam: Soft, Normal Bowel Sounds. absent: Tenderness - Extremities Exam Extremities Exam: absent: Calf Tenderness Additional comments: Abrasion in R knee, improved - Neurological Exam Neurological Exam: Alert, Awake, Oriented x3 - Skin Skin Exam: Pallor Assessment and Plan (1) Severe anemia Status: Acute (2) ETOH abuse Status: Chronic (3) Fall Status: Acute (4) Seizures Status: Acute (5) Liver cirrhosis, alcoholic Status: Chronic (6) Unsteady gait Status: Chronic - Assessment and Plan (Free Text) Assessment: Assessment/Plan: 52 YO with PMHx of ETOH abuse, unwitnessed seizures, cirrhosis (s/p TIPS), hepatic encephalograph is admitted for anemia requiring blood transfusion. More awake and alert, working with PT. Continues to have unsteady gait and at risk for fall. Hemodynamically stable, working with PT to optimize strength and gait. Low ext weakness/unsteady gait -chronic -likely 2/2 to ETOH abuse -c/w folic acid, thiamine -PT on board: ESME, working with patient Normocytic anemia -improving, stable -s/p 2 units of PRBC -h/h stable post transfusion, no acute bleeding, FOBT neg x 1 Hx of Seizures, Fall -likely 2/2 to ETOH Abuse vs seizure, unwitnessed -cont Keppra 500 IV PO -R rib pain, CXR pending Cirrhosis, ETOH abuse -Chronic -MELD score: 15, 6% 3 month mortality, Child-Squires score: 8, class B -CIWA score 1 -will d/c ativan -c/w folic acid, thiamine, rifaxim Pancytopenia -chronic, stable -likely 2/2 to live failure vs bone marrow suppression 2/2 to etoh abuse/liver failure DVT prophylaxis -SCDs due to thrombocytopenia <Ajith Romeo - Last Filed: 04/14/18 17:20> Objective - Vital Signs/Intake and Output Vital Signs (last 24 hours): Temp Pulse Resp BP Pulse Ox 98.2 F 71 20 121/63 98 04/14/18 16:39 04/14/18 16:39 04/14/18 16:39 04/14/18 16:39 04/14/18 16:39 - Medications Medications: Current Medications Acetaminophen (Tylenol 325mg Tab) 650 mg PO Q4 PRN PRN Reason: Fever >100.4 F Last Admin: 04/10/18 00:14 Dose: 650 mg Calcium Carbonate (Oscal) 500 mg PO DAILY [facility] Last Admin: 04/14/18 08:21 Dose: 500 mg Folic Acid (Folic Acid) 1 mg PO DAILY [facility] Last Admin: 04/14/18 08:22 Dose: 1 mg Lactulose (Enulose) 20 gm PO BID [facility] Last Admin: 04/14/18 17:07 Dose: 20 gm Levetiracetam (Keppra) 500 mg PO Q12H [facility] Last Admin: 04/14/18 12:08 Dose: 500 mg Lidocaine (Lidoderm) 1 ea TD DAILY [facility] Last Admin: 04/14/18 08:19 Dose: 1 ea Magnesium Oxide (Mag-Ox) 400 mg PO DAILY [facility] Last Admin: 04/14/18 08:21 Dose: 400 mg Pantoprazole Sodium (Protonix Ec Tab) 40 mg PO DAILY [facility] Last Admin: 04/14/18 08:22 Dose: 40 mg Rifaximin (Xifaxan) 550 mg PO BID [facility]; Protocol Last Admin: 04/14/18 17:08 Dose: 550 mg Thiamine HCl (Vitamin B1 Tab) 100 mg PO DAILY [facility] Last Admin: 04/14/18 08:21 Dose: 100 mg Tobramycin Sulfate (Tobrex 0.3% Ophth Soln) 1 drop OS QID [facility] Last Admin: 04/14/18 17:08 Dose: 1 drop - Labs Labs: 04/13/18 04:51 10/24/18 04:51 PT 20.0 Seconds (9.8-13.1) H 04/08/18 05:15 INR 1.8 04/08/18 05:15 Attending/Attestation - Attestation I have personally seen and examined this patient.: Yes I have fully participated in the care of the patient.: Yes I have reviewed all pertinent clinical information, including history, physical exam and plan: Yes Notes (Text): 52 YO with PMHx of ETOH abuse, unwitnessed seizures, cirrhosis (s/p TIPS), hepatic encephalograph is admitted for anemia requiring blood transfusion. More awake and alert, working with PT. Continues to have unsteady gait and at risk for fall. Hemodynamically stable, working with PT to optimize strength and gait. Low ext weakness/unsteady gait -chronic -likely 2/2 to ETOH abuse - cont pt ot
[2018-04-14] MEDS: Lidocaine 5% Patch TD SCH (08:19)
[2018-04-14] MEDS: Magnesium Oxide 400 mg Tab UD PO SCH (08:21)
[2018-04-14] MEDS: Tobramycin 0.3% OPHT SOLN OS SCH ×4 (08:22→23:22)
[2018-04-14] MEDS: Pantoprazole 40 mg EC Tab PO SCH (08:22)
[2018-04-15] MEDS: Lidocaine 5% Patch TD SCH (08:50)
[2018-04-15 08:52] VITALS: BP 111/57; PULSE 61; TEMP 97.5; O2SAT 99
[2018-04-15] MEDS: Tobramycin 0.3% OPHT SOLN OS SCH ×2 (08:52→12:08)
[2018-04-15] MEDS: Magnesium Oxide 400 mg Tab UD PO SCH (08:53)
[2018-04-15] MEDS: Pantoprazole 40 mg EC Tab PO SCH (08:54)
--- NOTE | 2018-04-15 09:35 | CP.PCM.PN ---
Objective - Vital Signs/Intake and Output Vital Signs (last 24 hours): Temp Pulse Resp BP Pulse Ox 97.5 F L 61 20 111/57 L 99 04/15/18 08:51 04/15/18 08:51 04/15/18 08:51 04/15/18 08:51 04/15/18 08:51 - Medications Medications: Current Medications Acetaminophen (Tylenol 325mg Tab) 650 mg PO Q4 PRN PRN Reason: Fever >100.4 F Last Admin: 04/10/18 00:14 Dose: 650 mg Calcium Carbonate (Oscal) 500 mg PO DAILY [facility] Last Admin: 04/15/18 08:53 Dose: 500 mg Folic Acid (Folic Acid) 1 mg PO DAILY [facility] Last Admin: 04/15/18 08:54 Dose: 1 mg Lactulose (Enulose) 20 gm PO BID [facility] Last Admin: 04/15/18 08:56 Dose: 20 gm Levetiracetam (Keppra) 500 mg PO Q12H [facility] Last Admin: 04/14/18 23:22 Dose: 500 mg Lidocaine (Lidoderm) 1 ea TD DAILY [facility] Last Admin: 04/15/18 08:50 Dose: 1 ea Magnesium Oxide (Mag-Ox) 400 mg PO DAILY [facility] Last Admin: 04/15/18 08:53 Dose: 400 mg Pantoprazole Sodium (Protonix Ec Tab) 40 mg PO DAILY [facility] Last Admin: 04/15/18 08:54 Dose: 40 mg Rifaximin (Xifaxan) 550 mg PO BID [facility]; Protocol Last Admin: 04/15/18 08:54 Dose: 550 mg Thiamine HCl (Vitamin B1 Tab) 100 mg PO DAILY [facility] Last Admin: 04/15/18 08:53 Dose: 100 mg Tobramycin Sulfate (Tobrex 0.3% Ophth Soln) 1 drop OS QID [facility] Last Admin: 04/15/18 08:52 Dose: 1 drop - Labs Labs: 04/13/18 04:51 04/13/18 04:51 PT 20.0 Seconds (9.8-13.1) H 04/08/18 05:15 INR 1.8 04/08/18 05:15
--- NOTE | 2018-04-15 14:31 | CP.PCM.DIS ---
<Marii Sandoval - Last Filed: 04/15/18 15:17> Provider - Provider Date of Admission: 04/09/18 12:18 Attending physician: Man Spence MD Primary care physician: None Consults: None Time Spent in preparation of Discharge (in minutes): 15 Diagnosis - Discharge Diagnosis (1) Hepatic encephalopathy Status: Acute Priority: High Comment: Resolved stable for D/C (2) Facial contusion Status: Acute Comment: Left hematoma-resolved, R frontal process fracture on CXR (3) Alcohol use Status: Acute Comment: Outpt Alchol treatment recommended (4) Cirrhosis Status: Acute Comment: Chronic, stable for D/c (5) Fall Status: Acute Comment: Resolved stable for D/C Hospital Course - Lab Results Lab Results: Most Recent Lab Values WBC 3.8 K/uL (4.8-10.8) L 04/13/18 04:51 RBC 2.85 Mil/uL (4.40-5.90) L 04/13/18 04:51 Hgb 7.9 g/dL (12.0-18.0) L 04/13/18 04:51 Hct 24.2 % (35.0-51.0) L 04/13/18 04:51 MCV 85.0 fl (80.0-94.0) 04/13/18 04:51 MCH 27.5 pg (27.0-31.0) 04/13/18 04:51 MCHC 32.4 g/dL (33.0-37.0) L 04/13/18 04:51 RDW 17.5 % (11.5-14.5) H 04/13/18 04:51 Plt Count 75 K/uL (130-400) L 04/13/18 04:51 MPV 7.9 fl (7.2-11.7) 04/13/18 04:51 Neut % (Auto) 61.1 % (50.0-75.0) 04/13/18 04:51 Lymph % (Auto) 17.1 % (20.0-40.0) L 04/13/18 04:51 Brule % (Auto) 17.1 % (0.0-10.0) H 04/13/18 04:51 Eos % (Auto) 3.7 % (0.0-4.0) 04/13/18 04:51 Baso % (Auto) 1.0 % (0.0-2.0) 04/13/18 04:51 Neut # (Auto) 2.3 K/uL (1.8-7.0) 04/13/18 04:51 Lymph # (Auto) 0.7 K/uL (1.0-4.3) L 04/13/18 04:51 Brule # (Auto) 0.7 K/uL (0.0-0.8) 04/13/18 04:51 Eos # (Auto) 0.1 K/uL (0.0-0.7) 04/13/18 04:51 Baso # (Auto) 0.0 K/uL (0.0-0.2) 04/13/18 04:51 Neutrophils % (Manual) 54 % (42-75) 04/07/18 09:25 Band Neutrophils % 2 % (0-2) 04/07/18 09:25 Lymphocytes % (Manual) 30 % (20-50) 04/07/18 09:25 Monocytes % (Manual) 10 % (0-10) 04/07/18 09:25 Basophils % (Manual) 4 % (0-2) H 04/07/18 09:25 Platelet Estimate Markedly decreased (NORMAL) L 04/07/18 09:25 Large Platelets Present 04/07/18 09:25 Hypochromasia (manual) Slight 04/07/18 09:25 Poikilocytosis (manual Slight 04/07/18 09:25 Anisocytosis (manual) Slight 04/07/18 09:25 Microcytosis (manual) Slight 04/07/18 09:25 Macrocytosis (manual) Slight 04/07/18 09:25 Spherocytes Moderate 04/07/18 09:25 Tear Drop Cells Slight 04/07/18 09:25 PT 20.0 Seconds (9.8-13.1) H 04/08/18 05:15 INR 1.8 04/08/18 05:15 Sodium 137 mmol/l (132-148) 04/13/18 04:51 Potassium 4.0 MMOL/L (3.6-5.0) 04/13/18 04:51 Chloride 113 mmol/L (98-107) H 04/13/18 04:51 Carbon Dioxide 21 mmol/L (22-30) L 04/13/18 04:51 Anion Gap 7 (10-20) L 04/13/18 04:51 BUN 20 mg/dl (9-20) 04/13/18 04:51 Creatinine 0.6 mg/dl (0.8-1.5) L 04/13/18 04:51 Est GFR ( Amer) > 60 04/13/18 04:51 Est GFR (Non-Af Amer) > 60 04/13/18 04:51 POC Glucose (mg/dL) 108 mg/dL (65-110) 04/10/18 10:57 Random Glucose 84 mg/dL (75-110) 04/13/18 04:51 Calcium 7.9 mg/dL (8.4-10.2) L 04/13/18 04:51 Phosphorus 3.8 mg/dl (2.5-4.5) 04/09/18 06:00 Magnesium 1.4 MG/DL (1.6-2.3) L 04/09/18 06:00 Total Bilirubin 2.3 mg/dl (0.2-1.3) H 04/11/18 05:40 AST 94 U/L (17-59) H 04/11/18 05:40 ALT 54 U/L (21-72) 04/11/18 05:40 Alkaline Phosphatase 175 U/L (38-126) H 04/11/18 05:40 Ammonia 93 umo/L (16-60) H* D 04/10/18 13:10 Troponin I < 0.0120 ng/mL (0.00-0.120) 04/06/18 19:15 Total Protein 6.7 G/DL (6.3-8.2) 04/11/18 05:40 Albumin 2.6 g/dL (3.5-5.0) L 04/11/18 05:40 Globulin 4.1 gm/dL (2.2-3.9) H 04/11/18 05:40 Albumin/Globulin Ratio 0.6 (1.0-2.1) L 04/11/18 05:40 Lipase 332 U/L (23-300) H 04/07/18 04:35 Stool Occult Blood Negative (NEGATIVE) 04/09/18 20:35 Blood Type O POSITIVE 04/07/18 09:25 Antibody Screen Negative 04/07/18 09:25 Crossmatch See Detail 04/07/18 09:25 BBK History Checked Patient has bt 04/07/18 09:25 - Hospital Course Hospital Course: Pt is a 52 yo M with pmhx of ETOH abuse, unwitnessed seizures, cirrhosis (s/p T IPS), hepatic encephalograph was admitted to ED on 04/07 for anemia requiring blood transfusion. Pt was transfused 2 units of PRBCs, h/h stable post transfusion, no acute bleeding, Fobt negative x1. Pt was confused with hyperammonemia, received lactulose. CXR- showed B/L old fractures was given Lidoderm patch, CT head- no intracranial hemorrhage, atrophy, chronic white matter changes, L scalp contusion, L superior palpebrum but no intraorbital hemorrhage, Acute non displaced fx in R frontal process of maxilla. PT came and worked with pt he was able to walk 150ft. Today pt feels well, no tremors or seizures. Tolerating oral intake, oriented to person place and time. Hemodynamically stable for discharge. - Date & Time of H&P Date of H&P: 04/07/18 Time of H&P: 11:15 Discharge Exam - Head Exam Head Exam: NORMAL INSPECTION Additional comments: Resolved hematoma on L eye - Eye Exam Eye Exam: Normal appearance - ENT Exam ENT Exam: Mucous Membranes Moist - Respiratory Exam Respiratory Exam: Clear to PA & Lateral, NORMAL BREATHING PATTERN - Cardiovascular Exam Cardiovascular Exam: RRR, +S1, +S2 - GI/Abdominal Exam GI & Abdominal Exam: Normal Bowel Sounds, Soft - Extremities Exam Extremities exam: normal inspection - Neurological Exam Neurological exam: Alert, Oriented x3 Discharge Plan - Discharge Medications Prescriptions: RX: Folic Acid 1 mg PO DAILY #30 tab RX: Lactulose [Enulose] 10 gm PO BID #30 ml RX: Thiamine [Vitamin B1 Tab] 100 mg PO DAILY #30 tab - Follow Up Plan Condition: FAIR Disposition: HOME/ ROUTINE Patient education suggested?: Yes Instructions: Alcohol Use - When Is Drinking a Problem?, Seizures, Adult (DC), Anemia of Chronic Disease (DC), Normocytic Normochromic Anemia (DC) Additional Instructions: Please follow up in [facility] appointment at [facility] april 19 at 4pm, please arrive 1/2 hour earlier to allow registration time. ER precautions for worsening symptoms, fever over 100.4 with Tylenol. Referrals: [facility] [Outside] <Shasha Martino - Last Filed: 04/15/18 17:49> Provider - Provider Date of Admission: 04/09/18 12:18 Attending physician: Man Spence MD Hospital Course - Lab Results Lab Results: Most Recent Lab Values WBC 3.8 K/uL (4.8-10.8) L 04/13/18 04:51 RBC 2.85 Mil/uL (4.40-5.90) L 04/13/18 04:51 Hgb 7.9 g/dL (12.0-18.0) L 04/13/18 04:51 Hct 24.2 % (35.0-51.0) L 04/13/18 04:51 MCV 85.0 fl (80.0-94.0) 04/13/18 04:51 MCH 27.5 pg (27.0-31.0) 04/13/18 04:51 MCHC 32.4 g/dL (33.0-37.0) L 04/13/18 04:51 RDW 17.5 % (11.5-14.5) H 04/13/18 04:51 Plt Count 75 K/uL (130-400) L 04/13/18 04:51 MPV 7.9 fl (7.2-11.7) 04/13/18 04:51 Neut % (Auto) 61.1 % (50.0-75.0) 04/13/18 04:51 Lymph % (Auto) 17.1 % (20.0-40.0) L 04/13/18 04:51 Brule % (Auto) 17.1 % (0.0-10.0) H 04/13/18 04:51 Eos % (Auto) 3.7 % (0.0-4.0) 04/13/18 04:51 Baso % (Auto) 1.0 % (0.0-2.0) 04/13/18 04:51 Neut # (Auto) 2.3 K/uL (1.8-7.0) 04/13/18 04:51 Lymph # (Auto) 0.7 K/uL (1.0-4.3) L 04/13/18 04:51 Brule # (Auto) 0.7 K/uL (0.0-0.8) 04/13/18 04:51 Eos # (Auto) 0.1 K/uL (0.0-0.7) 04/13/18 04:51 Baso # (Auto) 0.0 K/uL (0.0-0.2) 04/13/18 04:51 Neutrophils % (Manual) 54 % (42-75) 04/07/18 09:25 Band Neutrophils % 2 % (0-2) 04/07/18 09:25 Lymphocytes % (Manual) 30 % (20-50) 04/07/18 09:25 Monocytes % (Manual) 10 % (0-10) 04/07/18 09:25 Basophils % (Manual) 4 % (0-2) H 04/07/18 09:25 Platelet Estimate Markedly decreased (NORMAL) L 04/07/18 09:25 Large Platelets Present 04/07/18 09:25 Hypochromasia (manual) Slight 04/07/18 09:25 Poikilocytosis (manual Slight 04/07/18 09:25 Anisocytosis (manual) Slight 04/07/18 09:25 Microcytosis (manual) Slight 04/07/18 09:25 Macrocytosis (manual) Slight 04/07/18 09:25 Spherocytes Moderate 04/07/18 09:25 Tear Drop Cells Slight 04/07/18 09:25 PT 20.0 Seconds (9.8-13.1) H 04/08/18 05:15 INR 1.8 04/08/18 05:15 Sodium 137 mmol/l (132-148) 04/13/18 04:51 Potassium 4.0 MMOL/L (3.6-5.0) 04/13/18 04:51 Chloride 113 mmol/L (98-107) H 04/13/18 04:51 Carbon Dioxide 21 mmol/L (22-30) L 04/13/18 04:51 Anion Gap 7 (10-20) L 04/13/18 04:51 BUN 20 mg/dl (9-20) 04/13/18 04:51 Creatinine 0.6 mg/dl (0.8-1.5) L 04/13/18 04:51 Est GFR ( Amer) > 60 04/13/18 04:51 Est GFR (Non-Af Amer) > 60 04/13/18 04:51 POC Glucose (mg/dL) 108 mg/dL (65-110) 04/10/18 10:57 Random Glucose 84 mg/dL (75-110) 04/13/18 04:51 Calcium 7.9 mg/dL (8.4-10.2) L 04/13/18 04:51 Phosphorus 3.8 mg/dl (2.5-4.5) 04/09/18 06:00 Magnesium 1.4 MG/DL (1.6-2.3) L 04/09/18 06:00 Total Bilirubin 2.3 mg/dl (0.2-1.3) H 04/11/18 05:40 AST 94 U/L (17-59) H 04/11/18 05:40 ALT 54 U/L (21-72) 04/11/18 05:40 Alkaline Phosphatase 175 U/L (38-126) H 04/11/18 05:40 Ammonia 93 umo/L (16-60) H* D 04/10/18 13:10 Troponin I < 0.0120 ng/mL (0.00-0.120) 04/06/18 19:15 Total Protein 6.7 G/DL (6.3-8.2) 04/11/18 05:40 Albumin 2.6 g/dL (3.5-5.0) L 04/11/18 05:40 Globulin 4.1 gm/dL (2.2-3.9) H 04/11/18 05:40 Albumin/Globulin Ratio 0.6 (1.0-2.1) L 04/11/18 05:40 Lipase 332 U/L (23-300) H 04/07/18 04:35 Stool Occult Blood Negative (NEGATIVE) 04/09/18 20:35 Blood Type O POSITIVE 04/07/18 09:25 Antibody Screen Negative 04/07/18 09:25 Crossmatch See Detail 04/07/18 09:25 BBK History Checked Patient has bt 04/07/18 09:25 Attending/Attestation - Attestation I have personally seen and examined this patient.: Yes I have fully participated in the care of the patient.: Yes I have reviewed all pertinent clinical information, including history, physical exam and plan: Yes Notes (Text): 04/15/18 17:48 Agree with findings and plan as above. Stable for discharge.
== END 2018-04-15 14:32 | disposition home or self-care (01) | DRG 557 ==
LOC: H.ER 17:48 → H.ERHOLD 04-07 09:47 → H.TEL 04-07 13:22 → OBSVTOIN 04-09 12:18 → H.MEDSURG1 04-13 20:42
PROC: 30233N1 Transfusion of Nonautologous Red Blood Cells into Peripheral Vein, Percutaneous Approach (ICD-10-PCS; principal; 2018-04-07)
DX: K70.30 Alcoholic cirrhosis of liver without ascites (principal); K72.90 Hepatic failure, unspecified without coma; F10.239 Alcohol dependence with withdrawal, unspecified; D61.818 Other pancytopenia; E87.6 Hypokalemia; K52.9 Noninfective gastroenteritis and colitis, unspecified; E51.2 Wernicke's encephalopathy; D68.9 Coagulation defect, unspecified; E83.51 Hypocalcemia; G40.89 Other seizures; S00.83XA Contusion of other part of head, initial encounter; D50.9 Iron deficiency anemia, unspecified; F41.9 Anxiety disorder, unspecified; G89.29 Other chronic pain; M25.512 Pain in left shoulder; I85.10 Secondary esophageal varices without bleeding; K29.70 Gastritis, unspecified, without bleeding; H57.12 Ocular pain, left eye; R26.81 Unsteadiness on feet; F17.210 Nicotine dependence, cigarettes, uncomplicated; W18.30XA Fall on same level, unspecified, initial encounter; Z88.6 Allergy status to analgesic agent; Z91.81 History of falling; Z59.0 Homelessness

== ENCOUNTER 2018-04-15 18:21 | Emergency (ER) | payer MEDICAID ==
[2018-04-15 18:21] VITALS: BMI 24.0
[2018-04-15 19:09] VITALS: RESP 18
--- NOTE | 2018-04-15 20:57 | ED PDOC ---
HPI: Abdomen Time Seen by Provider: 04/15/18 19:53 Chief Complaint (Nursing): Abdominal Pain Chief Complaint (Provider): Rectal Bleeding History Per: Patient History/Exam Limitations: no limitations Onset/Duration Of Symptoms: Hrs Additional Complaint(s): Shreyas Sepulveda is a 52 year old male who is presenting to the ED for evaluation of rectal bleeding onset today. Contrary to triage note, patient denies any leg pain and also denies any chest pain or shortness of breath. Patient offers no other medical complaints at this time. PMD: none provided Past Medical History Reviewed: Historical Data, Nursing Documentation, Vital Signs Vital Signs: Last Vital Signs Temp 98.2 F 04/15/18 19:07 Pulse 98 H 04/15/18 19:07 Resp 18 04/15/18 19:07 BP 121/64 04/15/18 19:07 Pulse Ox 99 04/15/18 19:07 - Medical History PMH: Anemia, Anxiety, Back Problems (herniated disc), Deep Vein Thrombosis, Fractures (rib, left shoulder, left hand 5th digit, humerus), Gastritis, Gall Bladder Disease (Cholelithiasis), Pancreatitis, Seizures, Chronic Pain (left shoulder) Denies: CHF, HIV, Hypercholesterolemia, Chronic Kidney Disease, Sexually T ransmitted Disease - Surgical History Surgical History: Endoscopy - Family History Family History: States: No Known Family Hx - Immunization History Hx Tetanus Toxoid Vaccination: Yes Hx Influenza Vaccination: Yes Hx Pneumococcal Vaccination: Yes - Home Medications Home Medications: Ambulatory Orders Medication Instructions Recorded RX: levETIRAcetam [Keppra] 500 mg PO Q12H #60 tab 03/13/18 RX: Omeprazole 20 mg PO DAILY #30 capsule. 03/22/18 RX: Tobramycin [Tobrex] 5 ml TOP QID #1 bottle 04/03/18 RX: Folic Acid 1 mg PO DAILY #30 tab 04/09/18 RX: Lactulose [Enulose] 10 gm PO BID #30 ml 04/09/18 RX: Thiamine [Vitamin B1 Tab] 100 mg PO DAILY #30 tab 04/09/18 - Allergies Allergies/Adverse Reactions: Allergies Allergy/AdvReac Type Severity Reaction Status Date / Time aspirin Allergy NAUSEA Verified 04/15/18 19:07 ibuprofen [From Motrin] Allergy NAUSEA Verified 04/15/18 19:07 naproxen Allergy RASH Verified 04/15/18 19:07 NSAIDS (Non-Steroidal Allergy NAUSEA Verified 04/15/18 19:07 Anti-Inflamma Review of Systems ROS Statement: Except As Marked, All Systems Reviewed And Found Negative Cardiovascular: Negative for: Chest Pain Respiratory: Negative for: Shortness of Breath Gastrointestinal: Positive for: Other (rectal bleeding ) Musculoskeletal: Negative for: Leg Pain Physical Exam - Reviewed Nursing Documentation Reviewed: Yes Vital Signs Reviewed: Yes - Physical Exam Appears: Positive for: Non-toxic, No Acute Distress Head Exam: Positive for: ATRAUMATIC, NORMAL INSPECTION, NORMOCEPHALIC Skin: Positive for: Normal Color, Warm, DRY Eye Exam: Positive for: EOMI, Normal appearance, PERRL ENT: Positive for: Normal ENT Inspection Neck: Positive for: Normal, Painless ROM Cardiovascular/Chest: Positive for: Regular Rate, Rhythm. Negative for: Murmur Respiratory: Positive for: Normal Breath Sounds. Negative for: Respiratory Distress Gastrointestinal/Abdominal: Positive for: Normal Exam, Soft. Negative for: Tenderness Back: Positive for: Normal Inspection Extremity: Positive for: Normal ROM. Negative for: Calf Tenderness (b/l), Deformity, Swelling Neurologic/Psych: Positive for: Alert, Oriented (x3), Gait (steady, unassisted). Negative for: Motor/Sensory Deficits - Laboratory Results Result Diagrams: 04/15/18 21:26 - ECG O2 Sat by Pulse Oximetry: 99 (RA) Pulse Ox Interpretation: Normal Medical Decision Making Medical Decision Making: Time: 20:30 Plan: --CBC Scribe Attestation: Documented by Roxana Wang, acting as a scribe for Lincoln Olivier PA-C. Provider Scribe Attestation: All medical record entries made by the Scribe were at my direction and personally dictated by me. I have reviewed the chart and agree that the record accurately reflects my personal performance of the history, physical exam, medical decision making, and the department course for this patient. I have also personally directed, reviewed, and agree with the discharge instructions and disposition. Disposition - Clinical Impression Clinical Impression: Malingerer - Patient ED Disposition Is Patient to be Admitted: No - Disposition Disposition: Routine/Home Disposition Time: 22:00 Condition: STABLE Forms: [employer] ([place])
[2018-04-15 21:40] LABS: BASO # 0.1 K/uL (0.0-0.2); BASO % 1.2 % (0.0-2.0); EOS # 0.1 K/uL (0.0-0.7); EOS % 2.2 % (0.0-4.0); HEMOGLOBIN 8.4 g/dL (12.0-18.0); LYMPH # 0.9 K/uL (1.0-4.3); LYMPH % 18.7 % (20.0-40.0); MEAN CELL VOLUME 87.8 fl (80.0-94.0); MEAN CORPUSCULAR HEMOGLOBIN 26.7 pg (27.0-31.0); MEAN CORPUSCULAR HGB CONC 30.4 g/dL (33.0-37.0); MEAN PLATELET VOLUME 7.8 fl (7.2-11.7); MONO # 0.7 K/uL (0.0-0.8); MONO % 15.7 % (0.0-10.0); NEUT # 2.9 K/uL (1.8-7.0); NEUT % 62.2 % (50.0-75.0); NRBC % 0.1 % (0.0-0.0); RBC 3.16 Mil/uL (4.40-5.90); RED CELL DISTRIBUTION WIDTH 18.3 % (11.5-14.5); WHITE BLOOD COUNT 4.7 K/uL (4.8-10.8)
[2018-04-15 22:07] VITALS: BP 121/61; PULSE 96; TEMP 98.9
[2018-04-15 23:25] VITALS: O2SAT 99
== END 2018-04-15 22:08 | disposition home or self-care (01) ==
LOC: H.ER 18:21
DX: Z76.5 Malingerer [conscious simulation] (principal)

== ENCOUNTER 2018-04-16 13:12 | Emergency (ER) | payer MEDICAID ==
[2018-04-16 13:12] VITALS: BMI 24.0
[2018-04-16 13:33] VITALS: RESP 18
--- NOTE | 2018-04-16 13:52 | ED PDOC ---
HPI: General Adult Time Seen by Provider: 04/16/18 13:41 Chief Complaint (Nursing): Seizure Chief Complaint (Provider): possible seizure History Per: Patient Additional Complaint(s): 52-year-old male well-known to emergency department presents with pain to right ribs and neck status post fall yesterday. Patient states he had a seizure causing him to fall. He denies loss of consciousness. Patient is well known to ED. PMD: none Past Medical History Reviewed: Historical Data Vital Signs: Last Vital Signs Temp 96.3 F L 04/16/18 13:29 Pulse 67 04/16/18 13:29 Resp 18 04/16/18 13:29 BP 127/68 04/16/18 13:29 Pulse Ox - Medical History PMH: Anemia, Anxiety, Back Problems (herniated disc), Deep Vein Thrombosis, Fractures (rib, left shoulder, left hand 5th digit, humerus), Gastritis, Gall Bladder Disease (Cholelithiasis), Pancreatitis, Seizures, Chronic Pain (left shoulder) - Surgical History Surgical History: Endoscopy - Family History Family History: States: No Known Family Hx - Social History Current smoker - smoking cessation education provided: Yes Alcohol: > 2 Drinks/Day Drugs: Denies - Home Medications Home Medications: Ambulatory Orders Medication Instructions Recorded levETIRAcetam [Keppra] 500 mg PO Q12H #60 tab 03/13/18 Omeprazole 20 mg PO DAILY #30 capsule. 03/22/18 Tobramycin [Tobrex] 5 ml TOP QID #1 bottle 04/03/18 Folic Acid 1 mg PO DAILY #30 tab 04/09/18 Lactulose [Enulose] 10 gm PO BID #30 ml 04/09/18 Thiamine [Vitamin B1 Tab] 100 mg PO DAILY #30 tab 04/09/18 - Allergies Allergies/Adverse Reactions: Allergies Allergy/AdvReac Type Severity Reaction Status Date / Time aspirin Allergy NAUSEA Verified 04/16/18 13:29 ibuprofen [From Motrin] Allergy NAUSEA Verified 04/16/18 13:29 naproxen Allergy RASH Verified 04/16/18 13:29 NSAIDS (Non-Steroidal Allergy NAUSEA Verified 04/16/18 13:29 Anti-Inflamma Review of Systems ROS Statement: Except As Marked, All Systems Reviewed And Found Negative Musculoskeletal: Positive for: Other (neck pain and right rib pain) Physical Exam - Reviewed Nursing Documentation Reviewed: Yes Vital Signs Reviewed: Yes - Physical Exam Appears: Positive for: Well Skin: Positive for: Normal Color. Negative for: Rash Eye Exam: Positive for: Normal appearance Neck: Positive for: Pain On Movement Of Neck Cardiovascular/Chest: Positive for: Regular Rate, Rhythm, Other (right lateral chest wall tenderness) Respiratory: Positive for: Normal Breath Sounds. Negative for: Wheezing, Respiratory Distress Extremity: Positive for: Normal ROM Neurologic/Psych: Positive for: Alert, Oriented, Gait (steady) - ECG O2 Sat by Pulse Oximetry: 97 Pulse Ox Interpretation: Normal - Other Rad cervical spine x-ray X-Ray: Interpreted by Me, Viewed By Me X-Ray Interpretation: no fx, no dis cxr with right rib series X-Ray: Interpreted by Me, Viewed By Me X-Ray Interpretation: previously noted fractures to 8-10th ribs Medical Decision Making Medical Decision Makin52 y/o male with neck pain and right rib pain Plan: X-ray cervical spine X-ray right ribs and chest Patient made aware of x-ray results. All questions answered. Patient was referred to clinic for follow-up. Disposition - Clinical Impression Clinical Impression: Seizure disorder, Rib fracture - Patient ED Disposition Is Patient to be Admitted: No - Disposition Referrals: [facility] [Outside] Disposition: Routine/Home Disposition Time: 16:17 Condition: STABLE Instructions: Rib Fractures in Adults, Seizures, Adult (DC) Forms: [employer] (Cymro)
--- NOTE | 2018-04-16 14:43 | RAD ---
Date of service: 04/16/2018 PROCEDURE: Radiographs of the Chest and Right Ribs. HISTORY: trauma COMPARISON: Bilateral rib radiographs dated 04/13/2018. TECHNIQUE: Frontal radiograph of the chest and multiple oblique radiographs of the right ribs were obtained. FINDINGS: RIGHT RIBS: Minimally displaced right lateral 8th-10th rib fractures. LUNGS: Clear. PLEURA: No pneumothorax or pleural fluid. CARDIOVASCULAR: Normal cardiac size. No pulmonary vascular congestion. Aortic atherosclerotic calcifications. OTHER FINDINGS: Partially imaged TIPS stent. IMPRESSION: Minimally displaced 8th-10th rib fractures redemonstrated. No pneumothorax.
--- NOTE | 2018-04-16 14:44 | RAD ---
Date of service: 04/16/2018 PROCEDURE: Cervical Spine Radiographs. HISTORY: Pain. COMPARISON: CT scan of the cervical spine dated 04/06/2018 FINDINGS: BONES: Alignment maintained. No fracture. 2 mm anterior subluxation of C5 on C6. Dens Intact. DISC SPACES: Multilevel disc space narrowing. SOFT TISSUES: Normal. No prevertebral soft tissue swelling. OTHER FINDINGS: None. IMPRESSION: Multilevel degenerative changes. 2 mm anterior subluxation of C5 on C6. No acute fracture.
[2018-04-16 17:05] VITALS: BP 119/69; PULSE 75; TEMP 98; O2SAT 98
== END 2018-04-16 17:02 | disposition home or self-care (01) ==
LOC: H.ER 13:12
DX: R07.81 Pleurodynia (principal); R56.9 Unspecified convulsions; G40.909 Epilepsy, unspecified, not intractable, without status epilepticus; S22.41XA Multiple fractures of ribs, right side, initial encounter for closed fracture; G89.29 Other chronic pain; F17.200 Nicotine dependence, unspecified, uncomplicated; Z86.718 Personal history of other venous thrombosis and embolism; Z88.6 Allergy status to analgesic agent; M54.2 Cervicalgia

== ENCOUNTER 2018-04-16 19:43 | Emergency (ER) | payer MEDICAID ==
[2018-04-16 19:43] VITALS: BMI 24.0
[2018-04-16 19:55] VITALS: BP 158/87; PULSE 89; RESP 18; TEMP 98.2; O2SAT 99
--- NOTE | 2018-04-16 21:05 | ED PDOC ---
HPI: General Adult Time Seen by Provider: 04/16/18 20:15 Chief Complaint (Nursing): Trauma Chief Complaint (Provider): Right sided pain History Per: Patient History/Exam Limitations: no limitations Onset/Duration Of Symptoms: Hrs Current Symptoms Are (Timing): Still Present Additional Complaint(s): Shreyas Sepulveda is a 52 year old male with a past medical history of gastritis, chronic back pain, and seizures who is presenting to the ED for chronic pain to ribs. Patient has a rib fracture in the past. He is asking for jello and offers no other medical complaints at this time. PMD: none provided Past Medical History Reviewed: Historical Data, Nursing Documentation, Vital Signs Vital Signs: Last Vital Signs Temp 98.2 F 04/16/18 19:51 Pulse 89 04/16/18 19:51 Resp 18 04/16/18 19:51 BP 158/87 H 04/16/18 19:51 Pulse Ox 99 04/16/18 19:51 - Medical History PMH: Anemia, Anxiety, Back Problems (herniated disc), Deep Vein Thrombosis, Fractures (rib, left shoulder, left hand 5th digit, humerus), Gastritis, Gall Bladder Disease (Cholelithiasis), Pancreatitis, Seizures, Chronic Pain (left shoulder) Denies: CHF, HIV, Hypercholesterolemia, Chronic Kidney Disease, Sexually Transmitted Disease - Surgical History Surgical History: Endoscopy - Family History Family History: States: Unknown Family Hx - Social History Current smoker - smoking cessation education provided: Yes Alcohol: Social Drugs: Denies - Immunization History Hx Tetanus Toxoid Vaccination: Yes Hx Influenza Vaccination: Yes Hx Pneumococcal Vaccination: Yes - Home Medications Home Medications: Ambulatory Orders Medication Instructions Recorded RX: levETIRAcetam [Keppra] 500 mg PO Q12H #60 tab 03/13/18 RX: Omeprazole 20 mg PO DAILY #30 capsule. 03/22/18 RX: Tobramycin [Tobrex] 5 ml TOP QID #1 bottle 04/03/18 RX: Folic Acid 1 mg PO DAILY #30 tab 04/09/18 RX: Lactulose [Enulose] 10 gm PO BID #30 ml 04/09/18 RX: Thiamine [Vitamin B1 Tab] 100 mg PO DAILY #30 tab 04/09/18 - Allergies Allergies/Adverse Reactions: Allergies Allergy/AdvReac Type Severity Reaction Status Date / Time aspirin AdvReac GI Bleed Verified 04/16/18 19:51 ibuprofen [From Motrin] AdvReac GI Bleed Verified 04/16/18 19:51 naproxen AdvReac GI bleed Verified 04/16/18 19:51 NSAIDS (Non-Steroidal AdvReac GI bleed Verified 04/16/18 19:51 Anti-Inflamma Review of Systems ROS Statement: Except As Marked, All Systems Reviewed And Found Negative Musculoskeletal: Positive for: Other (right sided pain) Physical Exam - Reviewed Nursing Documentation Reviewed: Yes Vital Signs Reviewed: Yes - Physical Exam Appears: Positive for: Non-toxic, No Acute Distress Head Exam: Positive for: ATRAUMATIC, NORMAL INSPECTION, NORMOCEPHALIC Skin: Positive for: Normal Color, Warm, DRY Eye Exam: Positive for: Other (left subconjunctival hemorrhage ) Cardiovascular/Chest: Positive for: Regular Rate, Rhythm. Negative for: Murmur Respiratory: Positive for: Normal Breath Sounds. Negative for: Respiratory Distress Neurologic/Psych: Positive for: Alert, Oriented. Negative for: Motor/Sensory Deficits - ECG O2 Sat by Pulse Oximetry: 99 (RA) Pulse Ox Interpretation: Normal Medical Decision Making Medical Decision Making: Pt given apple sauce in ER. PT ambulates while holding walker to waiting room. Scribe Attestation: Documented by Roxana Wang, acting as a scribe for Ninoska Wells PA-C. Provider Scribe Attestation: All medical record entries made by the Scribe were at my direction and personally dictated by me. I have reviewed the chart and agree that the record accurately reflects my personal performance of the history, physical exam, medical decision making, and the department course for this patient. I have also personally directed, reviewed, and agree with the discharge instructions and disposition. Disposition - Clinical Impression Clinical Impression: Malingerer [conscious simulation] - Patient ED Disposition Is Patient to be Admitted: No - Disposition Disposition: Routine/Home Disposition Time: 21:33 Condition: GOOD Forms: [employer] (Omani)
== END 2018-04-16 21:25 | disposition home or self-care (01) ==
LOC: H.ER 19:43
DX: Z76.5 Malingerer [conscious simulation] (principal); F17.200 Nicotine dependence, unspecified, uncomplicated; G89.29 Other chronic pain; R56.9 Unspecified convulsions; Z86.718 Personal history of other venous thrombosis and embolism

== ENCOUNTER 2018-04-16 21:41 | Emergency (ER) | payer MEDICAID ==
[2018-04-16 21:42] VITALS: BMI 24.0
--- NOTE | 2018-04-16 21:49 | ED PDOC ---
HPI: General Adult Time Seen by Provider: 04/16/18 21:46 Chief Complaint (Provider): Rib Pain History Per: Patient History/Exam Limitations: no limitations Onset/Duration Of Symptoms: Hrs Current Symptoms Are (Timing): Still Present Additional Complaint(s): Shreyas Dillon is a 52 year old male who is presenting to the ED for evaluation of rib pain. Patient was seen in the ED within the hour and ambulated to the waiting room with a walker. He then proceeded to return through the ambulance bay while EMS was bringing in another patient. PMD: none provided Past Medical History Reviewed: Historical Data, Nursing Documentation, Vital Signs - Medical History PMH: Anemia, Anxiety, Back Problems (herniated disc), Deep Vein Thrombosis, Fractures (rib, left shoulder, left hand 5th digit, humerus), Gastritis, Gall Bladder Disease (Cholelithiasis), Pancreatitis, Seizures, Chronic Pain (left shoulder) Denies: CHF, HIV, Hypercholesterolemia, Chronic Kidney Disease, Sexually Transmitted Disease - Surgical History Surgical History: Endoscopy - Family History Family History: States: Unknown Family Hx - Social History Current smoker - smoking cessation education provided: Yes Alcohol: Social Drugs: Denies - Immunization History Hx Tetanus Toxoid Vaccination: Yes Hx Influenza Vaccination: Yes Hx Pneumococcal Vaccination: Yes - Home Medications Home Medications: Ambulatory Orders Medication Instructions Recorded levETIRAcetam [Keppra] 500 mg PO Q12H #60 tab 03/13/18 Omeprazole 20 mg PO DAILY #30 capsule. 03/22/18 Tobramycin [Tobrex] 5 ml TOP QID #1 bottle 04/03/18 Folic Acid 1 mg PO DAILY #30 tab 04/09/18 Lactulose [Enulose] 10 gm PO BID #30 ml 04/09/18 Thiamine [Vitamin B1 Tab] 100 mg PO DAILY #30 tab 04/09/18 - Allergies Allergies/Adverse Reactions: Allergies Allergy/AdvReac Type Severity Reaction Status Date / Time aspirin AdvReac GI Bleed Verified 04/16/18 22:16 ibuprofen [From Motrin] AdvReac GI Bleed Verified 04/16/18 22:16 naproxen AdvReac GI bleed Verified 04/16/18 22:16 NSAIDS (Non-Steroidal AdvReac GI bleed Verified 04/16/18 22:16 Anti-Inflamma Review of Systems ROS Statement: Except As Marked, All Systems Reviewed And Found Negative Musculoskeletal: Positive for: Other (rib pain) Physical Exam - Reviewed Nursing Documentation Reviewed: Yes Vital Signs Reviewed: Yes - Physical Exam Appears: Positive for: Non-toxic, No Acute Distress Head Exam: Positive for: ATRAUMATIC, NORMAL INSPECTION, NORMOCEPHALIC Eye Exam: Positive for: Other (subconjunctival hemorrhage ) Neck: Positive for: Normal Cardiovascular/Chest: Positive for: Regular Rate, Rhythm Respiratory: Positive for: Normal Breath Sounds Back: Positive for: Normal Inspection Extremity: Positive for: Normal ROM Neurologic/Psych: Positive for: Alert, Oriented. Negative for: Motor/Sensory Deficits Medical Decision Making Medical Decision Making: Time: 21:53 Upon provider evaluation patient is medically stable, and requires no further treatment in the ED at this time. Patient will be discharged. Scribe Attestation: Documented by Roxana Wang, acting as a scribe for Ninoska Wells PA-C. Provider Scribe Attestation: All medical record entries made by the Scribe were at my direction and per sonally dictated by me. I have reviewed the chart and agree that the record accurately reflects my personal performance of the history, physical exam, medical decision making, and the department course for this patient. I have also personally directed, reviewed, and agree with the discharge instructions and disposition. Disposition - Clinical Impression Clinical Impression: Malingerer [conscious simulation] - Patient ED Disposition Is Patient to be Admitted: No Counseled Patient/Family Regarding: Diagnosis, Need For Followup - Disposition Disposition: Routine/Home Disposition Time: 22:54 Condition: STABLE
[2018-04-16 22:20] VITALS: BP 121/74; PULSE 84; RESP 18; TEMP 98.1; O2SAT 98
== END 2018-04-17 00:05 | disposition home or self-care (01) ==
LOC: H.ER 21:41
DX: Z76.5 Malingerer [conscious simulation] (principal); F17.200 Nicotine dependence, unspecified, uncomplicated; G89.29 Other chronic pain; Z86.718 Personal history of other venous thrombosis and embolism; Z88.6 Allergy status to analgesic agent

== ENCOUNTER 2018-04-17 03:24 | Emergency (ER) | payer MEDICAID ==
[2018-04-17 03:24] VITALS: BMI 24.0
[2018-04-17 03:35] VITALS: BP 125/60; PULSE 79; RESP 16; TEMP 98.8; O2SAT 100
--- NOTE | 2018-04-17 04:45 | ED PDOC ---
HPI: Seizure Time Seen by Provider: 04/17/18 03:28 Chief Complaint (Nursing): Rib Injury History Per: Patient History/Exam Limitations: no limitations Number Of Seizures: One Additional Complaint(s): Hx of seizure disorder presenting with unwitnessed seizure, states he had it at [place] States he has been compliant with his medications. Patient is requesting a sandwich, jello, and juice. Past Medical History Reviewed: Historical Data, Nursing Documentation, Vital Signs Vital Signs: Last Vital Signs Temp 98.8 F 04/17/18 03:29 Pulse 79 04/17/18 03:29 Resp 16 04/17/18 03:29 BP 125/60 04/17/18 03:29 Pulse Ox 100 04/17/18 03:29 - Medical History PMH: Anemia, Anxiety, Back Problems (herniated disc), Deep Vein Thrombosis, Fractures (rib, left shoulder, left hand 5th digit, humerus), Gastritis, Gall Bladder Disease (Cholelithiasis), Pancreatitis, Seizures, Chronic Pain (left shoulder) Denies: CHF, HIV, Hypercholesterolemia, Chronic Kidney Disease, Sexually Transmitted Disease - Surgical History Surgical History: Endoscopy - Family History Family History: States: Unknown Family Hx - Immunization History Hx Tetanus Toxoid Vaccination: Yes Hx Influenza Vaccination: Yes Hx Pneumococcal Vaccination: Yes - Home Medications Home Medications: Ambulatory Orders Medication Instructions Recorded levETIRAcetam [Keppra] 500 mg PO Q12H #60 tab 03/13/18 Omeprazole 20 mg PO DAILY #30 capsule. 03/22/18 Tobramycin [Tobrex] 5 ml TOP QID #1 bottle 04/03/18 Folic Acid 1 mg PO DAILY #30 tab 04/09/18 Lactulose [Enulose] 10 gm PO BID #30 ml 04/09/18 Thiamine [Vitamin B1 Tab] 100 mg PO DAILY #30 tab 04/09/18 - Allergies Allergies/Adverse Reactions: Allergies Allergy/AdvReac Type Severity Reaction Status Date / Time aspirin AdvReac GI Bleed Verified 04/16/18 22:16 ibuprofen [From Motrin] AdvReac GI Bleed Verified 04/16/18 22:16 naproxen AdvReac GI bleed Verified 04/16/18 22:16 NSAIDS (Non-Steroidal AdvReac GI bleed Verified 04/16/18 22:16 Anti-Inflamma Review of Systems ROS Statement: Except As Marked, All Systems Reviewed And Found Negative Neurological: Positive for: Seizures Physical Exam - Reviewed Nursing Documentation Reviewed: Yes Vital Signs Reviewed: Yes - Physical Exam Appears: Positive for: Non-toxic, No Acute Distress. Negative for: Well (Disheveled) Head Exam: Positive for: ATRAUMATIC, NORMAL INSPECTION, NORMOCEPHALIC Skin: Positive for: Normal Color, Warm, DRY Eye Exam: Positive for: EOMI, Normal appearance, PERRL ENT: Positive for: Normal ENT Inspection Neck: Positive for: Normal, Painless ROM Cardiovascular/Chest: Positive for: Regular Rate, Rhythm Respiratory: Positive for: CNT, Normal Breath Sounds Gastrointestinal/Abdominal: Positive for: Normal Exam, Soft Back: Positive for: Normal Inspection Extremity: Positive for: Normal ROM Neurologic/Psych: Positive for: Alert, shooter's helper II-XII, Oriented. Negative for: Motor/Sensory Deficits - ECG O2 Sat by Pulse Oximetry: 100 Pulse Ox Interpretation: Normal Medical Decision Making Medical Decision Making: Patient presenting with unwitnessed seizure and no post-ictal period Likely malingering Patient is awake, alert, with normal vitals and steady gait Suitable for outpatient followup Disposition - Clinical Impression Clinical Impression: Seizure - Disposition Referrals: [facility] [Outside] Disposition: Routine/Home Disposition Time: 04:45 Condition: STABLE Instructions: Seizures, Adult (DC) Forms: [employer] (Ghanaian)
== END 2018-04-17 04:30 | disposition home or self-care (01) ==
LOC: H.ER 03:24
DX: G40.909 Epilepsy, unspecified, not intractable, without status epilepticus (principal)

== ENCOUNTER 2018-04-17 07:09 | Emergency (ER) | payer MEDICAID ==
[2018-04-17 07:20] VITALS: BMI 24.0
[2018-04-17 08:27] VITALS: O2SAT 100
--- NOTE | 2018-04-17 08:31 | ED PDOC ---
Lower Extremity Pain/Injury Time Seen by Provider: 04/17/18 08:15 Chief Complaint (Nursing): Lower Extremity Problem/Injury History Per: Patient (here because of right foot pain since yesterday. has not taken any pain meds. no other complaint at present) Past Medical History Reviewed: Historical Data, Nursing Documentation, Vital Signs Vital Signs: Last Vital Signs Temp 98.2 F 04/17/18 08:26 Pulse 68 04/17/18 08:26 Resp 20 04/17/18 08:26 BP 118/70 04/17/18 08:26 Pulse Ox 100 04/17/18 08:26 - Medical History PMH: Anemia, Anxiety, Back Problems (herniated disc), Deep Vein Thrombosis, Fractures (rib, left shoulder, left hand 5th digit, humerus), Gastritis, Gall Bladder Disease (Cholelithiasis), Pancreatitis, Seizures, Chronic Pain (left shoulder) Denies: CHF, HIV, Hypercholesterolemia, Chronic Kidney Disease, Sexually Transmitted Disease - Surgical History Surgical History: Endoscopy - Family History Family History: States: Unknown Family Hx - Immunization History Hx Tetanus Toxoid Vaccination: Yes Hx Influenza Vaccination: Yes Hx Pneumococcal Vaccination: Yes - Home Medications Home Medications: Ambulatory Orders Medication Instructions Recorded levETIRAcetam [Keppra] 500 mg PO Q12H #60 tab 03/13/18 Omeprazole 20 mg PO DAILY #30 capsule. 03/22/18 Tobramycin [Tobrex] 5 ml TOP QID #1 bottle 04/03/18 Folic Acid 1 mg PO DAILY #30 tab 04/09/18 Lactulose [Enulose] 10 gm PO BID #30 ml 04/09/18 Thiamine [Vitamin B1 Tab] 100 mg PO DAILY #30 tab 04/09/18 - Allergies Allergies/Adverse Reactions: Allergies Allergy/AdvReac Type Severity Reaction Status Date / Time aspirin AdvReac GI Bleed Verified 04/16/18 22:16 ibuprofen [From Motrin] AdvReac GI Bleed Verified 04/16/18 22:16 naproxen AdvReac GI bleed Verified 04/16/18 22:16 NSAIDS (Non-Steroidal AdvReac GI bleed Verified 04/16/18 22:16 Anti-Inflamma Review of Systems ROS Statement: Except As Marked, All Systems Reviewed And Found Negative Constitutional: Negative for: Fever Musculoskeletal: Positive for: Foot Pain (right) Physical Exam - Reviewed Nursing Documentation Reviewed: Yes Vital Signs Reviewed: Yes - Physical Exam Appears: Positive for: Well, Non-toxic, No Acute Distress Cardiovascular/Chest: Positive for: Regular Rate, Rhythm Extremity: Positive for: Normal ROM Neurologic/Psych: Positive for: Alert, Oriented - ECG O2 Sat by Pulse Oximetry: 100 Disposition - Clinical Impression Clinical Impression: Foot pain, right - Patient ED Disposition Is Patient to be Admitted: No Doctor Will See Patient In The: Office Counseled Patient/Family Regarding: Diagnosis, Need For Followup - Disposition Disposition: Routine/Home Disposition Time: 08:31 Condition: STABLE Instructions: Metatarsalgia (DC) - POA Present On Arrival: None
[2018-04-17 09:19] VITALS: BP 119/71; PULSE 71; RESP 18; TEMP 98
== END 2018-04-17 09:18 | disposition home or self-care (01) ==
LOC: H.ER 07:09
DX: M79.671 Pain in right foot (principal)

== ENCOUNTER 2018-04-17 21:23 | Emergency (ER) | payer MEDICAID ==
[2018-04-17 21:23] VITALS: BMI 24.0
[2018-04-17 21:30] VITALS: RESP 18; O2SAT 100
--- NOTE | 2018-04-17 21:40 | ED PDOC ---
HPI: General Adult Time Seen by Provider: 04/17/18 21:34 Chief Complaint (Nursing): Alcohol Ingestion Chief Complaint (Provider): Alcohol abuse History Per: Patient History/Exam Limitations: no limitations Onset/Duration Of Symptoms: Days (today) Additional History Per: Patient Additional Complaint(s): Pt. admits to alcohol abuse. [place] police called and sent EMS to take pt. to the ER. No abd pain, vomit, diarrhea, black stool. No fall or injury. No weakness. Here earlier for leg pain, better now. No headaches. Past Medical History Vital Signs: Last Vital Signs Temp 97 F L 04/17/18 21: Pulse 79 04/17/18 21:27 Resp 18 04/17/18 21:27 BP 120/59 L 04/17/18 21:27 Pulse Ox 100 04/17/18 21:27 - Medical History PMH: Anemia, Anxiety, Back Problems (herniated disc), Fractures (rib, left shou lder, left hand 5th digit, humerus), Gastritis, Gall Bladder Disease (Cholelithiasis), Pancreatitis, Seizures, Chronic Pain (left shoulder) Denies: CHF, HIV, Hypercholesterolemia, Chronic Kidney Disease, Sexually Transmitted Disease - Surgical History Surgical History: Endoscopy - Family History Family History: States: Unknown Family Hx - Immunization History Hx Tetanus Toxoid Vaccination: Yes Hx Influenza Vaccination: Yes Hx Pneumococcal Vaccination: Yes - Home Medications Home Medications: Ambulatory Orders Medication Instructions Recorded levETIRAcetam [Keppra] 500 mg PO Q12H #60 tab 03/13/18 Omeprazole 20 mg PO DAILY #30 nichole. 03/22/18 Tobramycin [Tobrex] 5 ml TOP QID #1 bottle 04/03/18 Folic Acid 1 mg PO DAILY #30 tab 04/09/18 Lactulose [Enulose] 10 gm PO BID #30 ml 04/09/18 Thiamine [Vitamin B1 Tab] 100 mg PO DAILY #30 tab 04/09/18 - Allergies Allergies/Adverse Reactions: Allergies Allergy/AdvReac Type Severity Reaction Status Date / Time aspirin AdvReac GI Bleed Verified 04/17/18 21:27 ibuprofen [From Motrin] AdvReac GI Bleed Verified 04/17/18 21:27 naproxen AdvReac GI bleed Verified 04/17/18 21:27 NSAIDS (Non-Steroidal AdvReac GI bleed Verified 04/17/18 21:27 Anti-Inflamma Review of Systems ROS Statement: Except As Marked, All Systems Reviewed And Found Negative Physical Exam - Physical Exam Appears: Positive for: Non-toxic, No Acute Distress Head Exam: Positive for: ATRAUMATIC, NORMAL INSPECTION, NORMOCEPHALIC Skin: Positive for: Normal Color, Warm, DRY Eye Exam: Positive for: EOMI, Normal appearance, PERRL ENT: Positive for: Normal ENT Inspection Neck: Positive for: Normal, Painless ROM Cardiovascular/Chest: Positive for: Regular Rate, Rhythm Respiratory: Positive for: CNT, Normal Breath Sounds Gastrointestinal/Abdominal: Positive for: Normal Exam, Soft. Negative for: Tenderness Back: Positive for: Normal Inspection. Negative for: L CVA Tenderness, R CVA Tenderness Extremity: Positive for: Normal ROM. Negative for: Tenderness, Pedal Edema Neurologic/Psych: Positive for: Alert, Oriented - ECG O2 Sat by Pulse Oximetry: 100 - Progress ED Course And Treament: 2339: Stable. AAOx3. Dr. Fernandez to fu on sobriety. Disposition - Clinical Impression Clinical Impression: Alcohol abuse with intoxication - Patient ED Disposition Is Patient to be Admitted: Transfer of Care - Disposition Disposition: Transfer of Care Disposition Time: 23:41 Condition: STABLE Patient Signed Over To: Olaf Fernandez
--- NOTE | 2018-04-18 00:08 | ED PDOC ---
- ECG O2 Sat by Pulse Oximetry: 100 Medical Decision Making Medical Decision Making: Time: 00:00 --Patient care endorsed from Dr. Maloney to provider pending reevaluation. Time: 06:32 Patient is clinically sober and stable for discharge. Scribe Attestation: Documented by Raghu Salazar, acting as a scribe for Olaf Fernandez MD. Provider Scribe Attestation: All medical record entries made by the Scribe were at my direction and personally dictated by me. I have reviewed the chart and agree that the record accurately reflects my personal performance of the history, physical exam, medical decision making, and the department course for this patient. I have also personally directed, reviewed, and agree with the discharge instructions and disposition. Disposition - Clinical Impression Clinical Impression: Alcohol abuse with intoxication - POA Present On Arrival: None - Disposition Disposition: Routine/Home Disposition Time: 06:32 Condition: STABLE Instructions: Effects of Alcohol on Your Health Forms: [employer] Connect (Icelandic)
[2018-04-18 06:42] VITALS: BP 126/74; PULSE 81; TEMP 97.4
== END 2018-04-18 06:42 | disposition home or self-care (01) ==
LOC: H.ER 21:23
DX: F10.129 Alcohol abuse with intoxication, unspecified (principal)

== ENCOUNTER 2018-04-18 07:35 | Emergency (ER) | payer MEDICAID ==
[2018-04-18 07:35] VITALS: BMI 24.0
[2018-04-18 07:41] VITALS: O2SAT 98
--- NOTE | 2018-04-18 10:06 | ED PDOC ---
HPI: General Adult Time Seen by Provider: 04/18/18 07:42 Chief Complaint (Nursing): Seizure Chief Complaint (Provider): seizure History Per: Patient History/Exam Limitations: no limitations Onset/Duration Of Symptoms: Intermittent Episodes Current Symptoms Are (Timing): Better Severity: Mild Recently: Seen In ED Additional Complaint(s): 52yo male represents to ED c/o "seizure" was discharged approximately 45min prior to representation. Prior charts reviewed. 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 Recently admitted to hospital. Patient awake, eating breakfast on my entrance to room. C/o ongoing rib pains. Denies new blood per rectum, hematemesis or fever. Past Medical History Reviewed: Historical Data, Nursing Documentation, Vital Signs Vital Signs: Last Vital Signs Temp 97 F L 04/18/18 07:39 Pulse 94 H 04/18/18 07:39 Resp BP 104/60 04/18/18 07:39 Pulse Ox 98 04/18/18 07:39 - Medical History PMH: Anemia, Anxiety, Back Problems (herniated disc), Deep Vein Thrombosis, Fractures (rib, left shoulder, left hand 5th digit, humerus), Gastritis, Gall Bladder Disease (Cholelithiasis), Pancreatitis, Seizures, Chronic Pain (left shoulder) Denies: CHF, HIV, Hypercholesterolemia, Chronic Kidney Disease, Sexually Transmitted Disease - Surgical History Surgical History: Endoscopy - Family History Family History: States: Unknown Family Hx - Living Arrangements Living Arrangements: Other - Social History Current smoker - smoking cessation education provided: Yes Alcohol: > 2 Drinks/Day - Immunization History Hx Tetanus Toxoid Vaccination: Yes Hx Influenza Vaccination: Yes Hx Pneumococcal Vaccination: Yes - Home Medications Home Medications: Ambulatory Orders Medication Instructions Recorded RX: levETIRAcetam [Keppra] 500 mg PO Q12H #60 tab 03/13/18 RX: Omeprazole 20 mg PO DAILY #30 capsule. 03/22/18 RX: Tobramycin [Tobrex] 5 ml TOP QID #1 bottle 04/03/18 RX: Folic Acid 1 mg PO DAILY #30 tab 04/09/18 RX: Lactulose [Enulose] 10 gm PO BID #30 ml 04/09/18 RX: Thiamine [Vitamin B1 Tab] 100 mg PO DAILY #30 tab 04/09/18 Levetiracetam [Keppra] 500 mg PO BID #60 tablet 04/18/18 - Allergies Allergies/Adverse Reactions: Allergies Allergy/AdvReac Type Severity Reaction Status Date / Time aspirin AdvReac GI Bleed Verified 04/23/18 17:56 ibuprofen [From Motrin] AdvReac GI Bleed Verified 04/23/18 17:56 naproxen AdvReac GI bleed Verified 04/23/18 17:56 NSAIDS (Non-Steroidal AdvReac GI bleed Verified 04/23/18 17:56 Anti-Inflamma Review of Systems ROS Statement: Except As Marked, All Systems Reviewed And Found Negative Eyes: Negative for: Vision Change Cardiovascular: Positive for: Other (rib pain) Respiratory: Negative for: Shortness of Breath Gastrointestinal: Negative for: Abdominal Pain Genitourinary Male: Negative for: Dysuria Musculoskeletal: Positive for: Arm Pain, Back Pain, Leg Pain Skin: Negative for: Rash, Lesions Neurological: Positive for: Dizziness. Negative for: Weakness, Numbness Physical Exam - Reviewed Nursing Documentation Reviewed: Yes Vital Signs Reviewed: Yes - Physical Exam Appears: Positive for: Non-toxic (poor hygiene) Head Exam: Positive for: ATRAUMATIC, NORMAL INSPECTION, NORMOCEPHALIC Skin: Positive for: Normal Color, Warm, DRY Eye Exam: Positive for: EOMI, PERRL, Scleral icterus, Other (L subconjunctival hemorrhage mild) ENT: Positive for: Normal ENT Inspection Neck: Positive for: Normal, Painless ROM Cardiovascular/Chest: Positive for: Regular Rate, Rhythm Respiratory: Positive for: CNT, Normal Breath Sounds Gastrointestinal/Abdominal: Positive for: Soft. Negative for: Tenderness Back: Positive for: Normal Inspection Extremity: Positive for: Normal ROM Neurologic/Psych: Positive for: Alert, Oriented, Other (baseline, awake eating breakfast). Negative for: Motor/Sensory Deficits - ECG O2 Sat by Pulse Oximetry: 98 Disposition - Clinical Impression Clinical Impression: Frequent seizures - Patient ED Disposition Is Patient to be Admitted: No - Disposition Disposition: Routine/Home Disposition Time: 12:00 Condition: STABLE Instructions: Seizures, Adult (DC) Forms: [employer] ([place])
[2018-04-18 10:47] VITALS: PULSE 86; RESP 19
[2018-04-18 17:07] VITALS: BP 104/60; TEMP 97.1
== END 2018-04-18 15:10 | disposition home or self-care (01) ==
LOC: H.ER 07:35
DX: R56.9 Unspecified convulsions (principal); F17.200 Nicotine dependence, unspecified, uncomplicated; G89.29 Other chronic pain; Z86.718 Personal history of other venous thrombosis and embolism; Z88.6 Allergy status to analgesic agent

== ENCOUNTER 2018-04-18 18:52 | Emergency (ER) | payer MEDICAID ==
[2018-04-18 18:52] VITALS: BMI 24.0
[2018-04-18 20:05] VITALS: RESP 18; O2SAT 99
--- NOTE | 2018-04-18 22:16 | ED PDOC ---
HPI: Seizure Time Seen by Provider: 04/18/18 22:04 Chief Complaint (Nursing): Medical Clearance Chief Complaint (Provider): seizure History Per: Patient History/Exam Limitations: no limitations Additional Complaint(s): 52 y/o male presents stating he had a seizure. Patient was discharged from ED at 18:00 tonight, states he had a seizure after he left. Patient requesting a refill on his Keppra, states he took the last one today. Patient denies injury. Requesting marcelino Past Medical History Reviewed: Historical Data, Nursing Documentation, Vital Signs Vital Signs: Last Vital Signs Temp 98.2 F 04/18/18 20:00 Pulse 82 04/18/18 20:00 Resp 18 04/18/18 20:00 BP 154/74 H 04/18/18 20:00 Pulse Ox 99 04/18/18 20:00 - Medical History PMH: Anemia, Anxiety, Back Problems (herniated disc), Deep Vein Thrombosis, Fractures (rib, left shoulder, left hand 5th digit, humerus), Gastritis, Gall Bladder Disease (Cholelithiasis), Pancreatitis, Seizures, Chronic Pain (left shoulder) Denies: CHF, HIV, Hypercholesterolemia, Chronic Kidney Disease, Sexually Transmitted Disease - Surgical History Surgical History: Endoscopy - Family History Family History: States: Unknown Family Hx - Immunization History Hx Tetanus Toxoid Vaccination: Yes Hx Influenza Vaccination: Yes Hx Pneumococcal Vaccination: Yes - Home Medications Home Medications: Ambulatory Orders Medication Instructions Recorded levETIRAcetam [Keppra] 500 mg PO Q12H #60 tab 03/13/18 Omeprazole 20 mg PO DAILY #30 capsule. 03/22/18 Tobramycin [Tobrex] 5 ml TOP QID #1 bottle 04/03/18 Folic Acid 1 mg PO DAILY #30 tab 04/09/18 Lactulose [Enulose] 10 gm PO BID #30 ml 04/09/18 Thiamine [Vitamin B1 Tab] 100 mg PO DAILY #30 tab 04/09/18 Levetiracetam [Keppra] 500 mg PO BID #60 tablet 04/18/18 - Allergies Allergies/Adverse Reactions: Allergies Allergy/AdvReac Type Severity Reaction Status Date / Time aspirin AdvReac GI Bleed Verified 04/17/18 21:27 ibuprofen [From Motrin] AdvReac GI Bleed Verified 10/28/18 21:27 naproxen AdvReac GI bleed Verified 04/17/18 21:27 NSAIDS (Non-Steroidal AdvReac GI bleed Verified 04/17/18 21:27 Anti-Inflamma Review of Systems ROS Statement: Except As Marked, All Systems Reviewed And Found Negative Neurological: Positive for: Seizures Physical Exam - Reviewed Nursing Documentation Reviewed: Yes Vital Signs Reviewed: Yes - Physical Exam Appears: Positive for: Well, Non-toxic, No Acute Distress Head Exam: Positive for: ATRAUMATIC, NORMAL INSPECTION, NORMOCEPHALIC Skin: Positive for: Normal Color Eye Exam: Positive for: Normal appearance ENT: Positive for: Normal ENT Inspection Cardiovascular/Chest: Positive for: Regular Rate, Rhythm Respiratory: Positive for: Normal Breath Sounds Gastrointestinal/Abdominal: Positive for: Normal Exam Back: Positive for: Normal Inspection Extremity: Positive for: Normal ROM Neurologic/Psych: Positive for: Alert, Oriented (x3) - ECG O2 Sat by Pulse Oximetry: 99 - Progress ED Course And Treament: accucheck Patient remains awake, alert, oriented throughout ED visit. Tolerated PO. Vitals stable Patient requires no further intervention in the ED and is stable for discharge at this time Rx Keppra provided Disposition - Clinical Impression Clinical Impression: Seizures - Patient ED Disposition Is Patient to be Admitted: No Counseled Patient/Family Regarding: Studies Performed, Diagnosis, Need For Followup, Rx Given - Disposition Disposition: Routine/Home Disposition Time: 23:50 Condition: IMPROVED Prescriptions: Levetiracetam [Keppra] 500 mg PO BID #60 tablet Instructions: Seizures
[2018-04-19 03:20] VITALS: BP 132/64; PULSE 90; TEMP 97.9
== END 2018-04-18 23:55 | disposition home or self-care (01) ==
LOC: H.ER 18:52
DX: R56.9 Unspecified convulsions (principal); G89.29 Other chronic pain; Z79.899 Other long term (current) drug therapy; Z86.718 Personal history of other venous thrombosis and embolism; Z88.6 Allergy status to analgesic agent

== ENCOUNTER 2018-04-19 01:16 | Emergency (ER) | payer MEDICAID ==
[2018-04-19 01:16] VITALS: BMI 24.0
[2018-04-19 01:25] VITALS: BP 133/74; PULSE 98; RESP 18; TEMP 98.6; O2SAT 98
--- NOTE | 2018-04-19 03:01 | ED PDOC ---
HPI: Seizure Chief Complaint (Nursing): Seizure Additional Complaint(s): 52 y/o male ambulates into ED with EMS for evaluation of seizure. Patient states he had a seizure at his friends house then walked [facility]. Of note, patient was discharged from ED one hour prior. Patient AAOx3, ambulating steady gait. Patient well known to ED and this provider for bed seeking behavior. Patient denies acute complaints. Past Medical History Reviewed: Historical Data, Nursing Documentation, Vital Signs Vital Signs: Last Vital Signs Temp 98.6 F 04/19/18 01:23 Pulse 98 H 04/19/18 01:23 Resp 18 04/19/18 01:23 BP 133/74 04/19/18 01:23 Pulse Ox 98 04/19/18 01:23 - Medical History PMH: Anemia, Anxiety, Back Problems (herniated disc), Deep Vein Thrombosis, Fractures (rib, left shoulder, left hand 5th digit, humerus), Gastritis, Gall Bladder Disease (Cholelithiasis), Pancreatitis, Seizures, Chronic Pain (left shoulder) Denies: CHF, HIV, Hypercholesterolemia, Chronic Kidney Disease, Sexually Transmitted Disease - Surgical History Surgical History: Endoscopy - Family History Family History: States: Unknown Family Hx - Immunization History Hx Tetanus Toxoid Vaccination: Yes Hx Influenza Vaccination: Yes Hx Pneumococcal Vaccination: Yes - Home Medications Home Medications: Ambulatory Orders Medication Instructions Recorded levETIRAcetam [Keppra] 500 mg PO Q12H #60 tab 03/13/18 Omeprazole 20 mg PO DAILY #30 capsule. 03/22/18 Tobramycin [Tobrex] 5 ml TOP QID #1 bottle 04/03/18 Folic Acid 1 mg PO DAILY #30 tab 04/09/18 Lactulose [Enulose] 10 gm PO BID #30 ml 04/09/18 Thiamine [Vitamin B1 Tab] 100 mg PO DAILY #30 tab 04/09/18 Levetiracetam [Keppra] 500 mg PO BID #60 tablet 04/18/18 - Allergies Allergies/Adverse Reactions: Allergies Allergy/AdvReac Type Severity Reaction Status Date / Time aspirin AdvReac GI Bleed Verified 04/17/18 21:27 ibuprofen [From Motrin] AdvReac GI Bleed Verified 04/17/18 21:27 naproxen AdvReac GI bleed Verified 04/17/18 21:27 NSAIDS (Non-Steroidal AdvReac GI bleed Verified 04/17/18 21:27 Anti-Inflamma Review of Systems ROS Statement: Except As Marked, All Systems Reviewed And Found Negative Neurological: Positive for: Seizures Physical Exam - Reviewed Nursing Documentation Reviewed: Yes Vital Signs Reviewed: Yes - Physical Exam Appears: Positive for: Well, Non-toxic, No Acute Distress Head Exam: Positive for: ATRAUMATIC, NORMAL INSPECTION, NORMOCEPHALIC Skin: Positive for: Normal Color Eye Exam: Positive for: Normal appearance ENT: Positive for: Normal ENT Inspection Cardiovascular/Chest: Positive for: Regular Rate, Rhythm Respiratory: Positive for: Normal Breath Sounds Gastrointestinal/Abdominal: Positive for: Normal Exam Back: Positive for: Normal Inspection Extremity: Positive for: Normal ROM Neurologic/Psych: Positive for: Alert, Oriented (x3) - ECG O2 Sat by Pulse Oximetry: 98 - Progress ED Course And Treament: Patient remains awake, alert, oriented throughout visit 5:30 Patient requires no further intervention in the ED and is stable for discharge at this time Disposition - Clinical Impression Clinical Impression: Malingering - Patient ED Disposition Is Patient to be Admitted: No Counseled Patient/Family Regarding: Studies Performed, Diagnosis, Need For Followup - Disposition Disposition: Routine/Home Disposition Time: 05:30 Condition: STABLE
== END 2018-04-19 05:30 | disposition home or self-care (01) ==
LOC: H.ER 01:16
DX: Z76.5 Malingerer [conscious simulation] (principal)

== ENCOUNTER 2018-04-19 11:00 | Emergency (ER) | payer MEDICAID ==
[2018-04-19 11:01] VITALS: BMI 24.0
[2018-04-19 11:06] VITALS: BP 122/73; PULSE 86; RESP 18; TEMP 96.7; O2SAT 100
--- NOTE | 2018-04-19 12:58 | ED PDOC ---
HPI: Seizure Time Seen by Provider: 04/19/18 11:23 Chief Complaint (Nursing): Seizure Chief Complaint (Provider): Seizure History Per: Patient History/Exam Limitations: no limitations Additional Complaint(s): 52 years old male with history of seizure and hypertension presents to ER for evaluation of another seizure. Patient is well known to provided for multiple previous visits to the ER for the same complaint. He states he is starving and wants to eat. Patient reports taking his medications but states he misses some doses sometimes. He states he will start taking them again after he is discharged with a prescription. Patient follow up with Dr. Kaur for seizure. PMD: Clinic in [place] Past Medical History Reviewed: Historical Data, Nursing Documentation, Vital Signs Vital Signs: Last Vital Signs Temp 96.7 F L 04/19/18 11:03 Pulse 86 04/19/18 11:03 Resp 18 04/19/18 11:03 BP 122/73 04/19/18 11:03 Pulse Ox 100 04/19/18 11:03 - Medical History PMH: Anemia, Anxiety, Back Problems (herniated disc), Deep Vein Thrombosis, Fractures (rib, left shoulder, left hand 5th digit, humerus), Gastritis, Gall Bladder Disease (Cholelithiasis), HTN, Pancreatitis, Seizures, Chronic Pain (left shoulder) Denies: CHF, HIV, Hypercholesterolemia, Chronic Kidney Disease, Sexually Transmitted Disease - Surgical History Surgical History: Endoscopy - Family History Family History: States: Unknown Family Hx - Social History Current smoker - smoking cessation education provided: Yes Alcohol: Social Drugs: Denies - Immunization History Hx Tetanus Toxoid Vaccination: Yes Hx Influenza Vaccination: Yes Hx Pneumococcal Vaccination: Yes - Home Medications Home Medications: Ambulatory Orders Medication Instructions Recorded RX: levETIRAcetam [Keppra] 500 mg PO Q12H #60 tab 03/13/18 RX: Omeprazole 20 mg PO DAILY #30 capsule. 03/22/18 RX: Tobramycin [Tobrex] 5 ml TOP QID #1 bottle 04/03/18 RX: Folic Acid 1 mg PO DAILY #30 tab 04/09/18 RX: Lactulose [Enulose] 10 gm PO BID #30 ml 04/09/18 RX: Thiamine [Vitamin B1 Tab] 100 mg PO DAILY #30 tab 04/09/18 Levetiracetam [Keppra] 500 mg PO BID #60 tablet 04/18/18 - Allergies Allergies/Adverse Reactions: Allergies Allergy/AdvReac Type Severity Reaction Status Date / Time aspirin AdvReac GI Bleed Verified 04/19/18 18:49 ibuprofen [From Motrin] AdvReac GI Bleed Verified 04/19/18 18:49 naproxen AdvReac GI bleed Verified 04/19/18 18:49 NSAIDS (Non-Steroidal AdvReac GI bleed Verified 04/19/18 18:49 Anti-Inflamma Review of Systems ROS Statement: Except As Marked, All Systems Reviewed And Found Negative Neurological: Positive for: Seizures Physical Exam - Reviewed Nursing Documentation Reviewed: Yes Vital Signs Reviewed: Yes - Physical Exam Appears: Positive for: Non-toxic, No Acute Distress Head Exam: Positive for: ATRAUMATIC, NORMOCEPHALIC Skin: Positive for: Normal Color, Warm, Dry Eye Exam: Positive for: Normal appearance, EOMI, PERRL Cardiovascular/Chest: Positive for: Regular Rate, Rhythm. Negative for: Murmur Respiratory: Positive for: Normal Breath Sounds. Negative for: Wheezing Neurologic/Psych: Positive for: Alert, Oriented (x3) - ECG O2 Sat by Pulse Oximetry: 100 (RA) Pulse Ox Interpretation: Normal Medical Decision Making Medical Decision Making: Time: 1253 Initial impression: recurrent seizure. Scribe Attestation: Documented by Lucina Walton, acting as a scribe for Cathy Salazar MD. Provider Scribe Attestation: All medical record entries made by the Scribe were at my direction and personally dictated by me. I have reviewed the chart and agree that the record accurately reflects my personal performance of the history, physical exam, medical decision making, and the department course for this patient. I have also personally directed, reviewed, and agree with the discharge instructions and disposition. Disposition - Clinical Impression Clinical Impression: Seizure disorder - Patient ED Disposition Is Patient to be Admitted: No Counseled Patient/Family Regarding: Studies Performed, Diagnosis - Disposition Referrals: [facility] [Outside] Disposition: Routine/Home Disposition Time: 12:00 Condition: GOOD Instructions: Seizures, Adult (DC)
== END 2018-04-19 15:38 | disposition home or self-care (01) ==
LOC: H.ER 11:00
DX: G40.909 Epilepsy, unspecified, not intractable, without status epilepticus (principal)

== ENCOUNTER 2018-04-19 18:22 | Emergency (ER) | payer MEDICAID ==
[2018-04-19 18:22] VITALS: BMI 24.0
[2018-04-19 18:53] VITALS: O2SAT 98
--- NOTE | 2018-04-19 19:53 | ED PDOC ---
HPI: Seizure Time Seen by Provider: 04/19/18 19:25 Chief Complaint (Nursing): Seizure Chief Complaint (Provider): seizure History Per: Patient History/Exam Limitations: no limitations Recent Seizure Activity Began: Unknown Additional Complaint(s): Shreyas Sepulveda is a 52 year old male, with a past medical history of seizure disorder, who presents to the emergency department claiming he had a seizure today. Patient is well known to provider and ED staff for bed seeking behavior and multiple visits. He denies any acute medical complaints. PMD: [facility] Past Medical History Reviewed: Historical Data, Nursing Documentation, Vital Signs Vital Signs: Last Vital Signs Temp 97.4 F L 04/19/18 18:49 Pulse 85 04/19/18 18:49 Resp 17 04/19/18 18:49 BP 146/85 04/19/18 18:49 Pulse Ox 98 04/19/18 18:49 - Medical History PMH: Anemia, Anxiety, Back Problems (herniated disc), Deep Vein Thrombosis, Fractures (rib, left shoulder, left hand 5th digit, humerus), Gastritis, Gall Bladder Disease (Cholelithiasis), HTN, Pancreatitis, Seizures, Chronic Pain (left shoulder) Denies: CHF, HIV, Hypercholesterolemia, Chronic Kidney Disease, Sexually Transmitted Disease - Surgical History Surgical History: Endoscopy - Family History Family History: States: Unknown Family Hx - Social History Current smoker - smoking cessation education provided: Yes (light smoker <10 cigarettes daily) Alcohol: > 2 Drinks/Day Drugs: Denies - Immunization History Hx Tetanus Toxoid Vaccination: Yes Hx Influenza Vaccination: Yes Hx Pneumococcal Vaccination: Yes - Home Medications Home Medications: Ambulatory Orders Medication Instructions Recorded RX: levETIRAcetam [Keppra] 500 mg PO Q12H #60 tab 03/13/18 RX: Omeprazole 20 mg PO DAILY #30 capsule. 03/22/18 RX: Tobramycin [Tobrex] 5 ml TOP QID #1 bottle 04/03/18 RX: Folic Acid 1 mg PO DAILY #30 tab 04/09/18 RX: Lactulose [Enulose] 10 gm PO BID #30 ml 04/09/18 RX: Thiamine [Vitamin B1 Tab] 100 mg PO DAILY #30 tab 04/09/18 Levetiracetam [Keppra] 500 mg PO BID #60 tablet 04/18/18 - Allergies Allergies/Adverse Reactions: Allergies Allergy/AdvReac Type Severity Reaction Status Date / Time aspirin AdvReac GI Bleed Verified 04/22/18 19:02 ibuprofen [From Motrin] AdvReac GI Bleed Verified 04/22/18 19:02 naproxen AdvReac GI bleed Verified 04/22/18 19:02 NSAIDS (Non-Steroidal AdvReac GI bleed Verified 04/22/18 19:02 Anti-Inflamma Review of Systems ROS Statement: Except As Marked, All Systems Reviewed And Found Negative Neurological: Positive for: Seizures Physical Exam - Reviewed Nursing Documentation Reviewed: Yes Vital Signs Reviewed: Yes - Physical Exam Appears: Positive for: No Acute Distress Head Exam: Positive for: ATRAUMATIC, NORMAL INSPECTION, NORMOCEPHALIC Skin: Positive for: Normal Color, Warm, Dry Eye Exam: Positive for: Normal appearance, EOMI, PERRL Neck: Positive for: Normal, Painless ROM Cardiovascular/Chest: Positive for: Regular Rate, Rhythm. Negative for: Murmur Respiratory: Positive for: Normal Breath Sounds. Negative for: Respiratory Distress Gastrointestinal/Abdominal: Positive for: Normal Exam, Soft. Negative for: Tenderness Back: Positive for: Normal Inspection Extremity: Positive for: Normal ROM (upper and lower extremities). Negative for : Deformity, Swelling Neurologic/Psych: Positive for: Alert, Oriented. Negative for: Motor/Sensory Deficits, Aphasia, Facial Droop - ECG O2 Sat by Pulse Oximetry: 98 (RA) Pulse Ox Interpretation: Normal Medical Decision Making Medical Decision Making: Time: 19:25 Initial Impression: Malingering Initial Plan: --Accucheck --Reevaluation 06:09 --Patient requires no further treatment at this time. He is stable for discharge. Scribe Attestation: Documented by Giovany Puri, acting as a scribe for Olaf Fernandez MD. Provider Scribe Attestation: All medical record entries made by the Scribe were at my direction and personally dictated by me. I have reviewed the chart and agree that the record accurately reflects my personal performance of the history, physical exam, medical decision making, and the department course for this patient. I have also personally directed, reviewed, and agree with the discharge instructions and disposition. Disposition - Clinical Impression Clinical Impression: Malingering - Patient ED Disposition Is Patient to be Admitted: No - Disposition Disposition: Routine/Home Disposition Time: 06:11 Condition: STABLE Additional Instructions: SHREYAS SEPULVEDA, thank you for letting us take care of you today. Your provider was Olaf Fernandez MD and you were treated for SEIZURE. The emergency medical care you received today was directed at your acute symptoms. If you were prescribed any medication, please fill it and take as directed. It may take several days for your symptoms to resolve. Return to the Emergency Department if your symptoms worsen, do not improve, or if you have any other problems. Please contact your doctor or call one of the physicians/clinics you have been referred to that are listed on the Patient Visit Information form that is included in your discharge packet. Bring any paperwork you were given at discharge with you along with any medications you are taking to your follow up visit. Our treatment cannot replace ongoing medical care by a primary care provider outside of the emergency department. Thank you for allowing the [facility] team to be part of your care today. If you had an X-Ray or CT scan: A Radiologist will review the ED reading if any change in treatment is needed we will contact you. If you had a blood, urine, or wound culture: It will take several days for the results, if any change in treatment is needed we will contact you. If you had an STI test: It will take 48 hours for the results. Please call after 1 week if you have not heard back. Forms: [employer] ([place])
[2018-04-19 22:43] VITALS: BP 138/82; PULSE 82; RESP 18; TEMP 98.1
== END 2018-04-20 06:17 | disposition home or self-care (01) ==
LOC: H.ER 18:22
DX: Z76.5 Malingerer [conscious simulation] (principal)

== ENCOUNTER 2018-04-20 16:38 | Emergency (ER) | payer MEDICAID ==
[2018-04-20 16:39] VITALS: BMI 24.0
[2018-04-20 16:46] VITALS: BP 136/60; PULSE 89; RESP 20; TEMP 99.1; O2SAT 99
--- NOTE | 2018-04-20 17:26 | ED PDOC ---
Upper Extremity Pain/Injury Time Seen by Provider: 04/20/18 16:54 Chief Complaint (Nursing): Trauma Chief Complaint (Provider): seizure and right shoulder pain History Per: Patient History/Exam Limitations: no limitations Onset/Duration Of Symptoms: Hrs (today) Current Symptoms Are (Timing): Still Present Additional Complaint(s): Shreyas Sepulveda is a 52 year old male, with a past medical history of seizure disorder, who was brought to the emergency department by EMS for evaluation of an unwitnessed seizure and right shoulder pain onset today. Patient states he fell on his right shoulder. He is well known to provider and ED staff for multiple visits. Patient states he is compliant with his medications and wants to eat. He denies any other medical complaints. PMD: [facility] Past Medical History Reviewed: Historical Data, Nursing Documentation, Vital Signs Vital Signs: Last Vital Signs Temp 99.1 F 04/20/18 16:42 Pulse 89 04/20/18 16:42 Resp 20 04/20/18 16:42 BP 136/60 04/20/18 16:42 Pulse Ox 99 04/20/18 16:42 - Medical History PMH: Anemia, Anxiety, Back Problems (herniated disc), Deep Vein Thrombosis, Fractures (rib, left shoulder, left hand 5th digit, humerus), Gastritis, Gall Bladder Disease (Cholelithiasis), HTN, Pancreatitis, Seizures, Chronic Pain (left shoulder) Denies: CHF, HIV, Hypercholesterolemia, Chronic Kidney Disease, Sexually Transmitted Disease - Surgical History Surgical History: Endoscopy - Family History Family History: States: Unknown Family Hx - Social History Current smoker - smoking cessation education provided: Yes (Light smoker <10 cigarettes daily) Alcohol: Other Drugs: Denies - Immunization History Hx Tetanus Toxoid Vaccination: Yes Hx Influenza Vaccination: Yes Hx Pneumococcal Vaccination: Yes - Home Medications Home Medications: Ambulatory Orders Medication Instructions Recorded RX: levETIRAcetam [Keppra] 500 mg PO Q12H #60 tab 03/13/18 RX: Omeprazole 20 mg PO DAILY #30 capsule. 03/22/18 RX: Tobramycin [Tobrex] 5 ml TOP QID #1 bottle 04/03/18 RX: Folic Acid 1 mg PO DAILY #30 tab 04/09/18 RX: Lactulose [Enulose] 10 gm PO BID #30 ml 04/09/18 RX: Thiamine [Vitamin B1 Tab] 100 mg PO DAILY #30 tab 04/09/18 Levetiracetam [Keppra] 500 mg PO BID #60 tablet 04/18/18 - Allergies Allergies/Adverse Reactions: Allergies Allergy/AdvReac Type Severity Reaction Status Date / Time aspirin AdvReac GI Bleed Verified 04/20/18 16:42 ibuprofen [From Motrin] AdvReac GI Bleed Verified 04/20/18 16:42 naproxen AdvReac GI bleed Verified 04/20/18 16:42 NSAIDS (Non-Steroidal AdvReac GI bleed Verified 04/20/18 16:42 Anti-Inflamma Review of Systems ROS Statement: Except As Marked, All Systems Reviewed And Found Negative Musculoskeletal: Positive for: Shoulder Pain (right ) Neurological: Positive for: Seizures Physical Exam - Reviewed Nursing Documentation Reviewed: Yes Vital Signs Reviewed: Yes - Physical Exam Appears: Positive for: No Acute Distress (disheveled) Head Exam: Positive for: ATRAUMATIC, NORMAL INSPECTION, NORMOCEPHALIC Skin: Positive for: Normal Color, Warm, Dry Eye Exam: Positive for: Normal appearance, EOMI, PERRL Neck: Positive for: Normal, Painless ROM, Supple Cardiovascular/Chest: Positive for: Regular Rate, Rhythm. Negative for: Murmur Respiratory: Positive for: Normal Breath Sounds. Negative for: Respiratory Distress Gastrointestinal/Abdominal: Positive for: Normal Exam, Soft. Negative for: Tenderness Back: Positive for: Normal Inspection. Negative for: Vertebral Tenderness Extremity: Positive for: Normal ROM, Other (pain with ROM of shoulder). Negative for: Deformity, Swelling Neurologic/Psych: Positive for: Alert, Oriented - ECG O2 Sat by Pulse Oximetry: 99 (RA) Pulse Ox Interpretation: Normal Medical Decision Making Medical Decision Making: Time: 16:54 Initial Impression: shoulder pain and recurrent seizures Initial Plan: --Alcohol serum --Shoulder right [RAD] --Reevaluation Scribe Attestation: Documented by Giovany Puri, acting as a scribe for Cathy Salazar MD. Provider Scribe Attestation: All medical record entries made by the Scribe were at my direction and personally dictated by me. I have reviewed the chart and agree that the record accurately reflects my personal performance of the history, physical exam, medical decision making, and the department course for this patient. I have also personally directed, reviewed, and agree with the discharge instructions and disposition. Disposition - Clinical Impression Clinical Impression: Clavicle fracture, Alcohol abuse with intoxication - Patient ED Disposition Is Patient to be Admitted: No - Disposition Referrals: Jesus Hoyos III, MD [Staff Provider] - Disposition: Left W/O Treatment Disposition Time: 18:47 Condition: GOOD Additional Instructions: SHREYAS SEPULVEDA, thank you for letting us take care of you today. Your provider was Cathy Salazar MD and you were treated for FALL: SHOULDER INJURY. The emergency medical care you received today was directed at your acute symptoms. If you were prescribed any medication, please fill it and take as directed. It may take several days for your symptoms to resolve. Return to the Emergency Department if your symptoms worsen, do not improve, or if you have any other problems. Please contact your doctor or call one of the physicians/clinics you have been referred to that are listed on the Patient Visit Information form that is included in your discharge packet. Bring any paperwork you were given at discharge with you along with any medications you are taking to your follow up visit. Our treatment cannot replace ongoing medical care by a primary care provider outside of the emergency department. Thank you for allowing the [facility] team to be part of your care today. If you had an X-Ray or CT scan: A Radiologist will review the ED reading if any change in treatment is needed we will contact you. If you had a blood, urine, or wound culture: It will take several days for the results, if any change in treatment is needed we will contact you. If you had an STI test: It will take 48 hours for the results. Please call after 1 week if you have not heard back. Instructions: Clavicle Fracture, Alcohol Abuse and Alcoholism (DC)
--- NOTE | 2018-04-20 17:34 | RAD ---
Date of service: 04/20/2018 PROCEDURE: Radiographs of the Right Shoulder HISTORY: right shoulder pain injury COMPARISON: No prior. FINDINGS: BONES: Displaced right distal clavicular fracture. JOINTS: Unremarkable. SOFT TISSUES: Normal. OTHER FINDINGS: None. IMPRESSION: Displaced distal right clavicular fracture.
== END 2018-04-20 19:00 | disposition left against medical advice (07) ==
LOC: H.ER 16:38
DX: G40.909 Epilepsy, unspecified, not intractable, without status epilepticus (principal); S42.001A Fracture of unspecified part of right clavicle, initial encounter for closed fracture; W19.XXXA Unspecified fall, initial encounter; Y92.89 Other specified places as the place of occurrence of the external cause

== ENCOUNTER 2018-04-20 21:14 | Emergency (ER) | payer MEDICAID ==
[2018-04-20 21:15] VITALS: BMI 24.0
[2018-04-20 21:19] VITALS: TEMP 97.8
--- NOTE | 2018-04-20 21:24 | ED PDOC ---
HPI: Psych/Substance Abuse Time Seen by Provider: 04/20/18 21:20 Chief Complaint (Nursing): Seizure Chief Complaint (Provider): Alcohol Intoxication History Per: Patient, EMS Modifying Factor(s): Alcohol Additional Complaint(s): Shreyas Sepulveda is a 52 year old male, well known to the ED, with a past medical history of seizures and alcohol abuse who was brought to the ED by EMS for alcohol intoxication. Patient was seen in this ED twice earlier today. He offers no physical complaints at this time. Requesting food upon arrival. PMD: none provided Past Medical History Reviewed: Historical Data, Nursing Documentation, Vital Signs Vital Signs: Last Vital Signs Temp 97.8 F 04/20/18 21:16 Pulse 84 04/20/18 21:16 Resp 17 04/20/18 21:16 BP 122/73 04/20/18 21:16 Pulse Ox 98 04/20/18 21:16 - Medical History PMH: Anemia, Anxiety, Back Problems (herniated disc), Deep Vein Thrombosis, Fractures (rib, left shoulder, left hand 5th digit, humerus), Gastritis, Gall Bladder Disease (Cholelithiasis), HTN, Pancreatitis, Seizures, Chronic Pain (left shoulder) - Surgical History Surgical History: Endoscopy - Family History Family History: States: Unknown Family Hx - Social History Alcohol: > 2 Drinks/Day - Home Medications Home Medications: Ambulatory Orders Medication Instructions Recorded RX: levETIRAcetam [Keppra] 500 mg PO Q12H #60 tab 03/13/18 RX: Omeprazole 20 mg PO DAILY #30 capsule. 03/22/18 RX: Tobramycin [Tobrex] 5 ml TOP QID #1 bottle 04/03/18 RX: Folic Acid 1 mg PO DAILY #30 tab 04/09/18 RX: Lactulose [Enulose] 10 gm PO BID #30 ml 04/09/18 RX: Thiamine [Vitamin B1 Tab] 100 mg PO DAILY #30 tab 04/09/18 Levetiracetam [Keppra] 500 mg PO BID #60 tablet 04/18/18 - Allergies Allergies/Adverse Reactions: Allergies Allergy/AdvReac Type Severity Reaction Status Date / Time aspirin AdvReac GI Bleed Verified 04/20/18 16:42 ibuprofen [From Motrin] AdvReac GI Bleed Verified 04/20/18 16:42 naproxen AdvReac GI bleed Verified 04/20/18 16:42 NSAIDS (Non-Steroidal AdvReac GI bleed Verified 04/20/18 16:42 Anti-Inflamma Review of Systems ROS Statement: Except As Marked, All Systems Reviewed And Found Negative Constitutional: Positive for: Other (alcohol intoxication) Physical Exam - Reviewed Nursing Documentation Reviewed: Yes Vital Signs Reviewed: Yes - Physical Exam Comments: GENERAL APPEARANCE: Patient is awake, alert, oriented x 3, in no acute distress. SKIN: Warm, dry; (-) cyanosis HEAD: (-) scalp swelling, (-) scalp tenderness. ENMT: Mucous membranes moist. Airway patent: (-) stridor. NECK: Supple. FROM HEART AND CARDIOVASCULAR: (-) irregularity CHEST AND RESPIRATORY: (-) rales, (-) rhonchi, (-) wheezes; breath sounds equal. ABDOMEN: Soft, (-) distention, (-) tenderness, (-) guarding. NEURO AND PSYCH: Mental status as above. (-) facial asymmetry - ECG O2 Sat by Pulse Oximetry: 98 (RA) Pulse Ox Interpretation: Normal Medical Decision Making Medical Decision Making: Time: 21:20 Plan: --Accucheck --Re-evaluation --Clinical Sobriety 21:45 Patient requesting a sandwich at this time. Accucheck: 96 2230 Patient tolerating PO intake without difficulty. Resting comfortably, no distress. 2300 Case endorsed to Radha Gibson PA-C pending re-evaluation and further disposition. Scribe Attestation: Documented by Roxana Wang, acting as a scribe for Haydee Hayes PA-C. Provider Scribe Attestation: All medical record entries made by the Scribe were at my direction and personally dictated by me. I have reviewed the chart and agree that the record accurately reflects my personal performance of the history, physical exam, medical decision making, and the department course for this patient. I have also personally directed, reviewed, and agree with the discharge instructions and disposition. Disposition - Clinical Impression Clinical Impression: Alcohol intoxication - Patient ED Disposition Is Patient to be Admitted: Transfer of Care (Case endorsed to Radha Gibson PA-C pending re-evaluation and further disposition.) - Disposition Disposition: Transfer of Care (Case endorsed to Radha Gibson PA-C pending re- evaluation and further disposition.) Disposition Time: 23:00 Condition: FAIR - POA Present On Arrival: None
--- NOTE | 2018-04-21 04:32 | ED PDOC ---
- ECG O2 Sat by Pulse Oximetry: 98 (RA) - Progress ED Course And Treament: Case endorsed to advertising copywriter from [facility]dy AYALA pending clinical sobriety 04/21/18 00:30 Patient sleeping; no distress 2:00 Patient sleeping; no distress 3:30 Patient sleeping; no distress 5:00 Patient awake, alert, oriented x3. Ambulating steady gait Patient requires no further intervention in the ED and is stable for discharge at this time Disposition - Clinical Impression Clinical Impression: Alcohol intoxication - POA Present On Arrival: None - Disposition Disposition: Routine/Home Disposition Time: 04:32 Condition: IMPROVED Instructions: Alcohol Abuse and Alcoholism (DC)
[2018-04-21 06:21] VITALS: BP 127/69; PULSE 80; RESP 18; O2SAT 99
== END 2018-04-21 06:21 | disposition home or self-care (01) ==
LOC: H.ER 21:14
DX: F10.129 Alcohol abuse with intoxication, unspecified (principal)

== ENCOUNTER 2018-04-21 18:44 | Emergency (ER) | payer MEDICAID ==
[2018-04-21 18:44] VITALS: BMI 24.0
--- NOTE | 2018-04-21 19:41 | ED PDOC ---
HPI: Seizure Time Seen by Provider: 04/21/18 19:20 Chief Complaint (Nursing): Seizure Chief Complaint (Provider): seizure History Per: Patient History/Exam Limitations: no limitations Recent Seizure Activity Began: Unknown Length Of Seizures (Duration): Unknown Precipitating Factor(s): Recent Alcohol Ingestion Additional Complaint(s): 52 year old male, with a past medical history of seizure disorder and ETOH abuse, who presents to the emergency department stating he had an unwitnessed seizure today. He is also complaining of rib and shoulder pain from fall after a seizure. Patient was recently seen in the ED for similar shoulder pain on 04/16 and 04/20 when he had an xray that showed an 8th-10th rib fracture. Patient is well known to the ED staff for multiple visits with similar complaints and bed seeking behavior. He denies any other medical complaints. PMD: None provided. Past Medical History Reviewed: Historical Data, Nursing Documentation, Vital Signs Vital Signs: Last Vital Signs Temp 99.4 F 04/21/18 18:56 Pulse 107 H 04/21/18 18:56 Resp 20 04/21/18 18:56 BP 153/79 H 04/21/18 18:56 Pulse Ox 98 04/21/18 18:56 - Medical History PMH: Anemia, Anxiety, Back Problems (herniated disc), Deep Vein Thrombosis, Fractures (rib, left shoulder, left hand 5th digit, humerus), Gastritis, Gall Bladder Disease (Cholelithiasis), HTN, Pancreatitis, Seizures, Chronic Pain (left shoulder) Denies: CHF, HIV, Hypercholesterolemia, Chronic Kidney Disease, Sexually Transmitted Disease - Surgical History Surgical History: Endoscopy - Family History Family History: States: Unknown Family Hx - Social History Alcohol: > 2 Drinks/Day - Immunization History Hx Tetanus Toxoid Vaccination: Yes Hx Influenza Vaccination: Yes Hx Pneumococcal Vaccination: Yes - Home Medications Home Medications: Ambulatory Orders Medication Instructions Recorded RX: levETIRAcetam [Keppra] 500 mg PO Q12H #60 tab 03/13/18 RX: Omeprazole 20 mg PO DAILY #30 capsule. 03/22/18 RX: Tobramycin [Tobrex] 5 ml TOP QID #1 bottle 04/03/18 RX: Folic Acid 1 mg PO DAILY #30 tab 04/09/18 RX: Lactulose [Enulose] 10 gm PO BID #30 ml 04/09/18 RX: Thiamine [Vitamin B1 Tab] 100 mg PO DAILY #30 tab 04/09/18 Levetiracetam [Keppra] 500 mg PO BID #60 tablet 04/18/18 - Allergies Allergies/Adverse Reactions: Allergies Allergy/AdvReac Type Severity Reaction Status Date / Time aspirin AdvReac GI Bleed Verified 04/21/18 18:56 ibuprofen [From Motrin] AdvReac GI Bleed Verified 04/21/18 18:56 naproxen AdvReac GI bleed Verified 04/21/18 18:56 NSAIDS (Non-Steroidal AdvReac GI bleed Verified 04/21/18 18:56 Anti-Inflamma Review of Systems ROS Statement: Except As Marked, All Systems Reviewed And Found Negative Musculoskeletal: Positive for: Neck Pain, Shoulder Pain, Other (Right sided rib pain) Neurological: Positive for: Seizures Physical Exam - Reviewed Nursing Documentation Reviewed: Yes Vital Signs Reviewed: Yes - Physical Exam Appears: Positive for: No Acute Distress Head Exam: Positive for: ATRAUMATIC, NORMAL INSPECTION, NORMOCEPHALIC Skin: Positive for: Normal Color, Warm, Dry Eye Exam: Positive for: Normal appearance, EOMI, PERRL Neck: Positive for: Normal, Painless ROM Cardiovascular/Chest: Positive for: Regular Rate, Rhythm. Negative for: Murmur Respiratory: Positive for: Normal Breath Sounds. Negative for: Respiratory Distress Extremity: Positive for: Normal ROM (upper and lower extremities). Negative for: Deformity, Swelling Neurologic/Psych: Positive for: Alert, Oriented - ECG O2 Sat by Pulse Oximetry: 98 (RA) Pulse Ox Interpretation: Normal Medical Decision Making Medical Decision Making: Time: 19:20 Initial Impression: Malingering Initial Plan: Scribe Attestation: Documented by Giovany Puri, acting as a scribe for Saba Lund PA-C Provider Scribe Attestation: All medical record entries made by the Scribe were at my direction and personally dictated by me. I have reviewed the chart and agree that the record accurately reflects my personal performance of the history, physical exam, medical decision making, and the department course for this patient. I have also personally directed, reviewed, and agree with the discharge instructions and disposition. Disposition - Clinical Impression Clinical Impression: Alcohol abuse, History of seizure - Patient ED Disposition Is Patient to be Admitted: No - Disposition Referrals: [facility] [Outside] Disposition: Transfer of Care Disposition Time: 01:43 Condition: STABLE Additional Instructions: Avoid excess alcohol use. F/u with your doctor re: improving your seizure regimen Instructions: Alcohol Abuse and Alcoholism (DC) Print Language: CHINESE
[2018-04-22 01:43] VITALS: O2SAT 98
--- NOTE | 2018-04-22 05:18 | ED PDOC ---
- ECG O2 Sat by Pulse Oximetry: 98 (RA) - Progress ED Course And Treament: Case endorsed to sba underwriter from Vaughn AYALA pending sobriety and final dispo 1:30 Patient sleeping; no distress 3:00 Patient sleeping; no distress 4:30 Patient sleeping; no distress 6:00 Patient awake, alert, oriented x3. Ambulating baseline Stable for discharge Disposition - Clinical Impression Clinical Impression: Alcohol abuse, History of seizure - POA Present On Arrival: None - Disposition Referrals: [facility] [Outside] Disposition: Routine/Home Disposition Time: 05:17 Condition: STABLE Additional Instructions: Avoid excess alcohol use. F/u with your doctor re: improving your seizure regimen Instructions: Alcohol Abuse and Alcoholism (DC) Print Language: INDONESIAN
[2018-04-22 06:26] VITALS: BP 115/63; PULSE 92; RESP 17; TEMP 97.8
== END 2018-04-22 06:00 | disposition home or self-care (01) ==
LOC: H.ER 18:44
DX: F10.10 Alcohol abuse, uncomplicated (principal); G40.909 Epilepsy, unspecified, not intractable, without status epilepticus

== ENCOUNTER 2018-04-22 13:04 | Emergency (ER) | payer MEDICAID ==
[2018-04-22 13:04] VITALS: BMI 24.0
[2018-04-22 13:31] VITALS: BP 127/69; PULSE 105; RESP 16; TEMP 99.1; O2SAT 97
--- NOTE | 2018-04-22 16:12 | ED PDOC ---
HPI: General Adult Time Seen by Provider: 04/22/18 13:49 Chief Complaint (Nursing): Seizure Chief Complaint (Provider): "Can i have a sandwich and some juice" History Per: Patient History/Exam Limitations: no limitations Have you had recent travel within the past 21 days to any of the following countries: [place], [place], [place] or [place]?: No Additional Complaint(s): 52 yo male, well known to ER, with history of seizure disorder, GI bleed, alcohol abuse presents to ER complaining of seizure in traige. Pt states to technical report writer he would like a sandwich and juice. Pt denies abdominal pain, N/V/D. Past Medical History Reviewed: Historical Data, Nursing Documentation, Vital Signs Vital Signs: Last Vital Signs Temp 99.1 F 04/22/18 13:26 Pulse 105 H 04/22/18 13:26 Resp 16 04/22/18 13:26 BP 127/69 04/22/18 13:26 Pulse Ox 97 04/22/18 13:26 - Medical History PMH: Anemia, Anxiety, Back Problems (herniated disc), Deep Vein Thrombosis, Fractures (rib, left shoulder, left hand 5th digit, humerus), Gastritis, Gall Bladder Disease (Cholelithiasis), HTN, Pancreatitis, Seizures, Chronic Pain (left shoulder) Denies: CHF, HIV, Hypercholesterolemia, Chronic Kidney Disease, Sexually Transmitted Disease - Surgical History Surgical History: Endoscopy - Family History Family History: States: Unknown Family Hx - Living Arrangements Living Arrangements: With Family - Social History Current smoker - smoking cessation education provided: Yes Alcohol: > 2 Drinks/Day Drugs: Denies - Immunization History Hx Tetanus Toxoid Vaccination: Yes Hx Influenza Vaccination: Yes Hx Pneumococcal Vaccination: Yes - Home Medications Home Medications: Ambulatory Orders Medication Instructions Recorded levETIRAcetam [Keppra] 500 mg PO Q12H #60 tab 03/13/18 Omeprazole 20 mg PO DAILY #30 capsule. 03/22/18 Tobramycin [Tobrex] 5 ml TOP QID #1 bottle 04/03/18 Folic Acid 1 mg PO DAILY #30 tab 04/09/18 Lactulose [Enulose] 10 gm PO BID #30 ml 04/09/18 Thiamine [Vitamin B1 Tab] 100 mg PO DAILY #30 tab 04/09/18 Levetiracetam [Keppra] 500 mg PO BID #60 tablet 10/29/18 - Allergies Allergies/Adverse Reactions: Allergies Allergy/AdvReac Type Severity Reaction Status Date / Time aspirin AdvReac GI Bleed Verified 04/21/18 18:56 ibuprofen [From Motrin] AdvReac GI Bleed Verified 04/21/18 18:56 naproxen AdvReac GI bleed Verified 04/21/18 18:56 NSAIDS (Non-Steroidal AdvReac GI bleed Verified 04/21/18 18:56 Anti-Inflamma Review of Systems ROS Statement: Except As Marked, All Systems Reviewed And Found Negative Constitutional: Negative for: Fever, Chills Gastrointestinal: Negative for: Nausea, Vomiting, Abdominal Pain Skin: Negative for: Rash Psych: Negative for: Psychosis, Suicidal ideation Physical Exam - Reviewed Nursing Documentation Reviewed: Yes Vital Signs Reviewed: Yes - Physical Exam Appears: Positive for: Well, Non-toxic, No Acute Distress Head Exam: Positive for: ATRAUMATIC, NORMAL INSPECTION, NORMOCEPHALIC Skin: Positive for: Normal Color, Warm, DRY Eye Exam: Positive for: Normal appearance ENT: Positive for: Normal ENT Inspection Neck: Positive for: Normal, Painless ROM Cardiovascular/Chest: Positive for: Regular Rate, Rhythm Respiratory: Positive for: CNT, Normal Breath Sounds Gastrointestinal/Abdominal: Negative for: Tenderness Back: Positive for: Normal Inspection Extremity: Positive for: Normal ROM Neurologic/Psych: Positive for: Alert, Oriented - ECG O2 Sat by Pulse Oximetry: 97 Medical Decision Making Medical Decision Making: Pt eating hotdog in room on re-evaluation. Pt ambulated to restroom. NAD. Disposition - Clinical Impression Clinical Impression: Malingerer [conscious simulation] - Patient ED Disposition Is Patient to be Admitted: No Counseled Patient/Family Regarding: Diagnosis, Need For Followup - Disposition Referrals: [facility] [Outside] Disposition: Routine/Home Disposition Time: 16:12 Condition: STABLE
== END 2018-04-22 17:03 | disposition home or self-care (01) ==
LOC: H.ER 13:04
DX: Z76.5 Malingerer [conscious simulation] (principal)

== ENCOUNTER 2018-04-22 19:00 | Emergency (ER) | payer MEDICAID ==
[2018-04-22 19:00] VITALS: BMI 24.0
[2018-04-22 19:05] VITALS: RESP 18; O2SAT 97
--- NOTE | 2018-04-23 03:12 | ED PDOC ---
HPI: Psych/Substance Abuse Time Seen by Provider: 04/23/18 01:20 Chief Complaint (Nursing): Seizure Chief Complaint (Provider): alcohol intoxication ED Caveat: Intoxicated History Per: EMS History/Exam Limitations: intoxication Current Symptoms Are (Timing): Still Present Modifying Factor(s): Alcohol Additional Complaint(s): 52 year old male, well-known to ED for multiple visit of alcoholism and bed-seeking behavior, arrives via EMS for evaluation of alcohol intoxication. Further history cannot be obtained due to patient's current clinical condition. Past Medical History Reviewed: Historical Data, Nursing Documentation, Vital Signs Vital Signs: Last Vital Signs Temp 98.2 F 04/22/18 19:02 Pulse 90 04/22/18 19:02 Resp 18 04/22/18 19:02 BP 126/68 04/22/18 19: Pulse Ox 97 04/22/18 19:02 - Medical History PMH: Anemia, Anxiety, Back Problems (herniated disc), Deep Vein Thrombosis, Fractures (rib, left shoulder, left hand 5th digit, humerus), Gastritis, Gall Bladder Disease (Cholelithiasis), HTN, Pancreatitis, Seizures, Chronic Pain (left shoulder) Denies: CHF, HIV, Hypercholesterolemia, Chronic Kidney Disease, Sexually Transmitted Disease - Surgical History Surgical History: Endoscopy - Family History Family History: States: Unknown Family Hx - Immunization History Hx Tetanus Toxoid Vaccination: Yes Hx Influenza Vaccination: Yes Hx Pneumococcal Vaccination: Yes - Home Medications Home Medications: Ambulatory Orders Medication Instructions Recorded levETIRAcetam [Keppra] 500 mg PO Q12H #60 tab 03/13/18 Omeprazole 20 mg PO DAILY #30 capsule. 03/22/18 Tobramycin [Tobrex] 5 ml TOP QID #1 bottle 04/03/18 Folic Acid 1 mg PO DAILY #30 tab 04/09/18 Lactulose [Enulose] 10 gm PO BID #30 ml 04/09/18 Thiamine [Vitamin B1 Tab] 100 mg PO DAILY #30 tab 04/09/18 Levetiracetam [Keppra] 500 mg PO BID #60 tablet 04/18/18 - Allergies Allergies/Adverse Reactions: Allergies Allergy/AdvReac Type Severity Reaction Status Date / Time aspirin AdvReac GI Bleed Verified 04/22/18 19:02 ibuprofen [From Motrin] AdvReac GI Bleed Verified 04/22/18 19:02 naproxen AdvReac GI bleed Verified 04/22/18 19:02 NSAIDS (Non-Steroidal AdvReac GI bleed Verified 04/22/18 19:02 Anti-Inflamma Review of Systems Review Of Systems: ROS cannot be obtained secondary to pt's inabilty to answer questions. Physical Exam - Reviewed Nursing Documentation Reviewed: Yes Vital Signs Reviewed: Yes - Physical Exam Appears: Positive for: No Acute Distress Head Exam: Positive for: ATRAUMATIC, NORMAL INSPECTION, NORMOCEPHALIC Skin: Positive for: Normal Color Eye Exam: Positive for: Normal appearance ENT: Positive for: Normal ENT Inspection Neck: Positive for: Normal Cardiovascular/Chest: Positive for: Regular Rate, Rhythm Respiratory: Positive for: Normal Breath Sounds. Negative for: Respiratory Distress Gastrointestinal/Abdominal: Positive for: Normal Exam, Soft. Negative for: Tenderness Extremity: Positive for: Normal ROM (upper/lower) Neurologic/Psych: Positive for: Mood/Affect (intoxicated), Gait (unsteady), Other ((+) AOB). Negative for: Alert, Oriented, Aphasia - ECG O2 Sat by Pulse Oximetry: 97 (RA) Pulse Ox Interpretation: Normal Medical Decision Making Medical Decision Making: Initial Impression: 52 year old male with alcohol intoxication. Initial Plan: * Achieve clinical sobriety Time: 0635 --Upon provider reevaluation, patient is medically stable, clinically sober with steady gait and clear speech. Patient will be discharged home. Counseling was provided and all questions were answered regarding diagnosis. There is agreement to discharge plan. Return if symptoms persist or worsen. Clinical Impression: Alcohol abuse with intoxication Scribe Attestation: Documented by Dulce Hoffmann, acting as a scribe for Olaf Fernandez MD. Provider Scribe Attestation: All medical record entries made by the Scribe were at my direction and personally dictated by me. I have reviewed the chart and agree that the record a ccurately reflects my personal performance of the history, physical exam, medical decision making, and the department course for this patient. I have also personally directed, reviewed, and agree with the discharge instructions and disposition. Disposition - Clinical Impression Clinical Impression: Alcohol abuse with intoxication - Patient ED Disposition Is Patient to be Admitted: No Counseled Patient/Family Regarding: Diagnosis - Disposition Disposition: Routine/Home Disposition Time: 06:35 Condition: STABLE Instructions: Effects of Alcohol on Your Health Forms: [facility] [facility] (Macedonian)
[2018-04-23 07:29] VITALS: BP 118/62; PULSE 84; TEMP 98.6
== END 2018-04-23 06:30 | disposition home or self-care (01) ==
LOC: H.ER 19:00
DX: F10.129 Alcohol abuse with intoxication, unspecified (principal)

== ENCOUNTER 2018-04-23 17:42 | Emergency (ER) | payer MEDICAID ==
[2018-04-23 17:42] VITALS: BMI 24.0
[2018-04-23 17:58] VITALS: BP 133/71; PULSE 97; RESP 16; TEMP 98; O2SAT 97
--- NOTE | 2018-04-28 18:23 | ED PDOC ---
HPI: General Adult Time Seen by Provider: 04/23/18 17:59 Chief Complaint (Nursing): Alcohol Ingestion Chief Complaint (Provider): Denies complaints - Asking for food History Per: Patient History/Exam Limitations: no limitations Have you had recent travel within the past 21 days to any of the following countries: [place], [place], [place] or [place]?: No Additional Complaint(s): 53 yo male with history of alcohol abuse, seizure disorder and upper GI bleed presents with seizure. 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 Pt ambulated to his ER room, carrying walker. Pt asking for juice in ER. Pt denies complaint in room. Past Medical History Reviewed: Historical Data, Nursing Documentation, Vital Signs Vital Signs: Last Vital Signs Temp 98.0 F 04/23/18 17:56 Pulse 97 H 04/23/18 17:56 Resp 16 04/23/18 17:56 BP 133/71 04/23/18 17:56 Pulse Ox 97 04/23/18 17:56 - Medical History PMH: Anemia, Anxiety, Back Problems (herniated disc), Deep Vein Thrombosis, Fractures (rib, left shoulder, left hand 5th digit, humerus), Gastritis, Gall Bladder Disease (Cholelithiasis), HTN, Pancreatitis, Seizures, Chronic Pain (left shoulder) Denies: CHF, HIV, Hypercholesterolemia, Chronic Kidney Disease, Sexually Transmitted Disease - Surgical History Surgical History: Endoscopy - Family History Family History: States: Unknown Family Hx - Immunization History Hx Tetanus Toxoid Vaccination: Yes Hx Influenza Vaccination: Yes Hx Pneumococcal Vaccination: Yes - Home Medications Home Medications: Ambulatory Orders Medication Instructions Recorded Omeprazole 20 mg PO DAILY #30 capsule. 03/22/18 Folic Acid 1 mg PO DAILY #30 tab 04/09/18 Lactulose [Enulose] 10 gm PO BID #30 ml 04/09/18 Thiamine [Vitamin B1 Tab] 100 mg PO DAILY #30 tab 04/09/18 Levetiracetam [Keppra] 500 mg PO BID #60 tablet 04/18/18 Amoxicillin/Clavulanate [Augmentin 1 tab PO Q12 #20 tab 04/28/18 875 MG-125 MG] - Allergies Allergies/Adverse Reactions: Allergies Allergy/AdvReac Type Severity Reaction Status Date / Time aspirin AdvReac GI Bleed Verified 04/23/18 17:56 ibuprofen [From Motrin] AdvReac GI Bleed Verified 04/23/18 17:56 naproxen AdvReac GI bleed Verified 04/23/18 17:56 NSAIDS (Non-Steroidal AdvReac GI bleed Verified 04/23/18 17:56 Anti-Inflamma Review of Systems ROS Statement: Except As Marked, All Systems Reviewed And Found Negative Constitutional: Negative for: Fever, Chills ENT: Negative for: Ear Pain, Ear Discharge Cardiovascular: Negative for: Chest Pain, Palpitations Gastrointestinal: Negative for: Nausea, Vomiting, Abdominal Pain Genitourinary Male: Negative for: Dysuria, Frequency Physical Exam - Reviewed Nursing Documentation Reviewed: Yes Vital Signs Reviewed: Yes - Physical Exam Appears: Positive for: Well, Non-toxic, No Acute Distress Head Exam: Positive for: ATRAUMATIC, NORMAL INSPECTION, NORMOCEPHALIC Skin: Positive for: Normal Color, Warm, DRY Eye Exam: Positive for: Normal appearance ENT: Positive for: Normal ENT Inspection Neck: Positive for: Normal, Painless ROM Cardiovascular/Chest: Positive for: Regular Rate, Rhythm Respiratory: Positive for: Normal Breath Sounds. Negative for: Accessory Muscle Use, Respiratory Distress Gastrointestinal/Abdominal: Positive for: Normal Exam, Soft. Negative for: Tenderness Back: Positive for: Normal Inspection Extremity: Positive for: Normal ROM Neurologic/Psych: Positive for: Alert, Oriented - ECG O2 Sat by Pulse Oximetry: 97 Disposition - Clinical Impression Clinical Impression: Homeless single person - Patient ED Disposition Is Patient to be Admitted: No - Disposition Disposition: Routine/Home Disposition Time: 19:13 Condition: STABLE
== END 2018-04-23 19:14 | disposition home or self-care (01) ==
LOC: H.ER 17:42
DX: Z59.0 Homelessness (principal); Z86.718 Personal history of other venous thrombosis and embolism; Z88.6 Allergy status to analgesic agent; I10 Essential (primary) hypertension; G89.29 Other chronic pain; G40.909 Epilepsy, unspecified, not intractable, without status epilepticus

== ENCOUNTER 2018-04-24 05:19 | Inpatient (IN) | payer MEDICAID ==
[2018-04-24 05:20] VITALS: BMI 24.0
--- NOTE | 2018-04-24 06:44 | ED PDOC ---
HPI: Psych/Substance Abuse Time Seen by Provider: 04/24/18 05:32 Chief Complaint (Nursing): Seizure Chief Complaint (Provider): Seizure ED Caveat: Intoxicated History Per: Patient History/Exam Limitations: intoxication Additional Complaint(s): 52 year old male, well-known to ED for multiple visit of alcoholism and bed-seeking behavior, arrives for evaluation claiming he had seizure. Patient is intoxicated and thus further history cannot be obtained due to patient's current condition. Past Medical History Reviewed: Historical Data, Nursing Documentation, Vital Signs Vital Signs: Last Vital Signs Temp 98 F 04/24/18 05:59 Pulse 96 H 04/24/18 05:59 Resp 18 04/24/18 05:59 BP Pulse Ox 100 04/24/18 05:59 - Medical History PMH: Anemia, Anxiety, Back Problems (herniated disc), Deep Vein Thrombosis, Fractures (rib, left shoulder, left hand 5th digit, humerus), Gastritis, Gall Bladder Disease (Cholelithiasis), HTN, Pancreatitis, Seizures, Chronic Pain (left shoulder) Denies: CHF, HIV, Hypercholesterolemia, Chronic Kidney Disease, Sexually Transmitted Disease - Surgical History Surgical History: Endoscopy - Family History Family History: States: Unknown Family Hx - Immunization History Hx Tetanus Toxoid Vaccination: Yes Hx Influenza Vaccination: Yes Hx Pneumococcal Vaccination: Yes - Home Medications Home Medications: Ambulatory Orders Medication Instructions Recorded levETIRAcetam [Keppra] 500 mg PO Q12H #60 tab 03/13/18 Omeprazole 20 mg PO DAILY #30 capsule. 03/22/18 Tobramycin [Tobrex] 5 ml TOP QID #1 bottle 04/03/18 Folic Acid 1 mg PO DAILY #30 tab 04/09/18 Lactulose [Enulose] 10 gm PO BID #30 ml 04/09/18 Thiamine [Vitamin B1 Tab] 100 mg PO DAILY #30 tab 04/09/18 Levetiracetam [Keppra] 500 mg PO BID #60 tablet 04/18/18 - Allergies Allergies/Adverse Reactions: Allergies Allergy/AdvReac Type Severity Reaction Status Date / Time aspirin AdvReac GI Bleed Verified 04/23/18 17:56 ibuprofen [From Motrin] AdvReac GI Bleed Verified 04/23/18 17:56 naproxen AdvReac GI bleed Verified 11/03/18 17:56 NSAIDS (Non-Steroidal AdvReac GI bleed Verified 04/23/18 17:56 Anti-Inflamma Review of Systems Review Of Systems: ROS cannot be obtained secondary to pt's inabilty to answer questions. Physical Exam - Reviewed Nursing Documentation Reviewed: Yes Vital Signs Reviewed: Yes - Physical Exam Appears: Positive for: Well, Non-toxic, No Acute Distress Head Exam: Positive for: ATRAUMATIC, NORMAL INSPECTION, NORMOCEPHALIC Skin: Positive for: Normal Color Eye Exam: Positive for: EOMI, Normal appearance, PERRL Neck: Positive for: Normal Cardiovascular/Chest: Positive for: Regular Rate, Rhythm. Negative for: Murmur Respiratory: Positive for: Normal Breath Sounds. Negative for: Respiratory Distress Gastrointestinal/Abdominal: Positive for: Normal Exam, Soft. Negative for: Tenderness Extremity: Positive for: Normal ROM. Negative for: Pedal Edema, Deformity Neurologic/Psych: Positive for: Alert, Oriented. Negative for: Motor/Sensory Deficits - ECG O2 Sat by Pulse Oximetry: 100 (RA) Pulse Ox Interpretation: Normal Medical Decision Making Medical Decision Making: Time: 05:32 Initial Impression: 52 year old male with alcohol intoxication. Initial Plan: Achieve clinical sobriety Time: 07:00 Patient will signed over to Dr. Sousa. Scribe Attestation: Documented by Raghu Salazar acting as a scribe for Olaf Fernandez MD Provider Scribe Attestation: All medical record entries made by the Scribe were at my direction and personally dictated by me. I have reviewed the chart and agree that the record accurately reflects my personal performance of the history, physical exam, medical decision making, and the department course for this patient. I have also personally directed, reviewed, and agree with the discharge instructions and disposition. Disposition - Disposition Forms: [employer] (Samoan)
--- NOTE | 2018-04-24 07:53 | ED PDOC ---
- ECG O2 Sat by Pulse Oximetry: 100 (RA) - Progress Re-evaluation Time: 07:51 Condition: Improved (Awake alert oriented x 3 No focal neuro deficits) Disposition - Clinical Impression Clinical Impression: Alcohol intoxication - POA Present On Arrival: None - Disposition Referrals: [facility] [Outside] Disposition: Routine/Home Disposition Time: 07:52 Condition: FAIR Instructions: Alcohol Abuse and Alcoholism (DC) Forms: [employer] (Kyrgyz)
[2018-04-24] MEDS ORDERED: Sodium Chloride 0.9% 1,000 ML IV STA ×2 (14:57→15:42)
[2018-04-24 15:36] LABS: BASO # 0.1 K/uL (0.0-0.2); BASO % 1.4 % (0.0-2.0); EOS # 0.1 K/uL (0.0-0.7); EOS % 1.5 % (0.0-4.0); HEMOGLOBIN 7.5 g/dL (12.0-18.0); LYMPH # 0.7 K/uL (1.0-4.3); MEAN CELL VOLUME 84.6 fl (80.0-94.0); MEAN CORPUSCULAR HEMOGLOBIN 26.6 pg (27.0-31.0); MEAN CORPUSCULAR HGB CONC 31.5 g/dL (33.0-37.0); MEAN PLATELET VOLUME 7.3 fl (7.2-11.7); MONO # 0.5 K/uL (0.0-0.8); MONO % 6.8 % (0.0-10.0); NEUT # 5.3 K/uL (1.8-7.0); NEUT % 79.3 % (50.0-75.0); NRBC % 0.1 % (0.0-0.0); RBC 2.82 Mil/uL (4.40-5.90); RED CELL DISTRIBUTION WIDTH 18.5 % (11.5-14.5); WHITE BLOOD COUNT 6.7 K/uL (4.8-10.8)
[2018-04-24 15:39] LABS: VENOUS BLOOD GAS BASE EXCESS 2.3 mmol/L (0.0-2.0); VENOUS BLOOD GAS PCO2 27 mmHg (40-60); VENOUS BLOOD GAS PO2 47 mm/Hg (30-55); VENOUS BLOOD PH 7.55 (7.32-7.43)
[2018-04-24 15:48] LABS: ALB/GLOB RATIO 0.8 (1.0-2.1); ALT/SGPT 63 U/L (21-72); AST/SGOT 112 U/L (17-59); BLOOD UREA NITROGEN 15 mg/dl (9-20); CALCIUM 7.3 mg/dL (8.4-10.2); GFR NON-AFRICAN AMERICAN > 60
[2018-04-24 16:12] LABS: URINE BACTERIA RARE (<OCC); URINE BILIRUBIN NEGATIVE (NEGATIVE); URINE BLOOD SMALL (NEGATIVE); URINE CLARITY SLIGHTY-CLOUDY (Clear); URINE COLOR YELLOW (YELLOW); URINE GLUCOSE (UA) NEG (Normal); URINE LEUKOCYTE ESTERASE NEG Leu/uL (Negative); URINE PROTEIN 30 mg/dL (NEGATIVE)
--- NOTE | 2018-04-24 16:19 | RAD ---
Date of service: 04/24/2018 HISTORY: cough COMPARISON: No prior. FINDINGS: LUNGS: No active pulmonary disease. PLEURA: No significant pleural effusion identified, no pneumothorax apparent. CARDIOVASCULAR: No aortic atherosclerotic calcification present. Normal cardiac size. No pulmonary vascular congestion. OSSEOUS STRUCTURES: No significant abnormalities. VISUALIZED UPPER ABDOMEN: Normal. OTHER FINDINGS: None. IMPRESSION: No active disease.
[2018-04-24] MEDS ORDERED: Iohexol 300 100 ML IJ ONE (16:32)
[2018-04-24] MEDS ORDERED: Sodium Chloride 0.9% 50 ML IV ONE (16:33)
--- NOTE | 2018-04-24 17:30 | ED PDOC ---
- Laboratory Results Result Diagrams: 04/24/18 15:15 04/24/18 15:15 - ECG O2 Sat by Pulse Oximetry: 95 Pulse Ox Interpretation: Normal - Progress ED Course And Treament: 1728: Stable. Here with intoxication. Found to have fever. Pending, ct abd/pelvis, flu/strep. ct: gallstones Labs: hg 7.5 2055: Stable. Spoke with Dr. Cummins. Will admit for obs. Will hold on antibiotics as no source identified. Likely viral infection considering frequent ER visits and possibly exposure from outside. Will observe for anemia. Disposition - Clinical Impression Clinical Impression: Alcohol intoxication, Fever, Anemia - POA Present On Arrival: None - Disposition Disposition: Hospitalized as Observation Patient Disposition Time: 20:57 Condition: FAIR
[2018-04-24] MEDS ORDERED: Multivitamin (MVI) 10 ML, Thiamine 100 MG, Folic Acid 1 MG in Dextrose 5%/0.45% NS 1,00... IV ONE (22:15)
--- NOTE | 2018-04-24 22:29 | CP.PCM.HP ---
<Eyal Rodney - Last Filed: 04/24/18 22:45> History of Present Illness - History of Present Illness History of Present Illness: History taken mostly from ED notes, pt does not remember what happened. 52 YO with PMHx of ETOH abuse, unwitnessed seizures, cirrhosis (s/p TIPS), hepatic encephalopathy present to the ED complaining of seizure. Pt states that he had a seizure this morning but does not recall about the episode. Patient was very intoxicated on arrival. On ED patient developed temp 102.7, and was c/o cough that started few days ago. Otherwise he denies headache, dizziness, dys pnea, abdominal pain, n/v/d/c, emesis, epitasix, blood in stool or dark BM, last BM this AM. PMD: none PMHx: ETOH abuse, unwitnessed seizures, cirrhosis (s/p TIPS), hepatic encephalopathy, esophageal varices, chronic anemia Surgical hx: TIPs in 2014 Social hx: smoker; 3 cigarettes a day, 1.5 ppd previously, etoh abuse Family hx: father MS, mother smoker and of lung cancer, sister diagnosed with colon cancer, recently Allergies: asprin, ibuprofen, naproxen, NSAIDs (nausea for all of them) Next of Kin: Arty [phone] Present on Admission - Present on Admission Any Indicators Present on Admission: No Review of Systems - Review of Systems All systems: reviewed and no additional remarkable complaints except (HPI) Past Patient History - Infectious Disease Hx of Infectious Diseases: None - Tetanus Immunizations Tetanus Immunization: Unknown - Past Medical History & Family History Past Medical History?: Yes - Past Social History Smoking Status: Light Smoker < 10 Cigarettes Daily - CARDIAC Hx Congestive Heart Failure: No Hx Hypercholesterolemia: No Hx Hypertension: Yes - NEUROLOGICAL Hx Seizures: Yes - HEENT Hx HEENT Problems: No - RENAL Hx Chronic Kidney Disease: No - ENDOCRINE/METABOLIC Hx Endocrine Disorders: No - HEMATOLOGICAL/ONCOLOGICAL Hx Anemia: Yes Hx Human Immunodeficiency Virus (HIV): No - INTEGUMENTARY Hx Dermatological Problems: Yes Hx Cellulitis: Yes - MUSCULOSKELETAL/RHEUMATOLOGICAL Hx Fractures: Yes (rib, left shoulder, left hand 5th digit, humerus) - GASTROINTESTINAL Hx Gall Bladder Disease: Yes (Cholelithiasis) Hx Gastritis: Yes Hx Pancreatitis: Yes - GENITOURINARY/GYNECOLOGICAL Hx Sexually Transmitted Disorders: No - PSYCHIATRIC Hx Anxiety: Yes Hx Substance Use: No (denies) - SURGICAL HISTORY Hx Surgeries: Yes - ANESTHESIA Hx Anesthesia: Yes Hx Anesthesia Reactions: No Hx Malignant Hyperthermia: No Meds Allergies/Adverse Reactions: Allergies Allergy/AdvReac Type Severity Reaction Status Date / Time aspirin AdvReac GI Bleed Verified 04/23/18 17:56 ibuprofen [From Motrin] AdvReac GI Bleed Verified 04/23/18 17:56 naproxen AdvReac GI bleed Verified 04/23/18 17:56 NSAIDS (Non-Steroidal AdvReac GI bleed Verified 04/23/18 17:56 Anti-Inflamma Physical Exam - Constitutional Appears: No Acute Distress, Chronically Ill - Head Exam Head Exam: NORMAL INSPECTION - Respiratory Exam Respiratory Exam: Clear to Auscultation Bilateral. absent: Rales, Rhonchi - Cardiovascular Exam Cardiovascular Exam: Tachycardia, REGULAR RHYTHM, +S1, +S2 - GI/Abdominal Exam GI & Abdominal Exam: Normal Bowel Sounds, Soft. absent: Distended, Tenderness - Extremities Exam Extremities exam: Negative for: pedal edema - Neurological Exam Additional comments: Mildly intoxicated, poor cooperative - Skin Skin Exam: Dry, Warm Results - Vital Signs Recent Vital Signs: Last Vital Signs Temp 99.9 F H 04/24/18 17:24 Pulse 104 H 04/24/18 17:24 Resp 18 04/24/18 17:24 BP 114/70 04/24/18 18:22 Pulse Ox 95 04/24/18 20:59 - Labs Result Diagrams: 04/24/18 15:15 04/24/18 15:15 Labs: Laboratory Results - last 24 hr 04/24/18 04/24/18 04/24/18 07:35 07:45 15:15 WBC 6.7 RBC 2.82 L Hgb 7.5 L Hct 23.8 L MCV 84.6 D MCH 26.6 L MCHC 31.5 L RDW 18.5 H Plt Count 111 L MPV 7.3 Neut % (Auto) 79.3 H Lymph % (Auto) 11.0 L Amelia % (Auto) 6.8 Eos % (Auto) 1.5 Baso % (Auto) 1.4 Neut # (Auto) 5.3 Lymph # (Auto) 0.7 L Amelia # (Auto) 0.5 Eos # (Auto) 0.1 Baso # (Auto) 0.1 pO2 VBG pH VBG pCO2 VBG HCO3 VBG Total CO2 VBG Base Excess VBG Potassium Glucose Lactate FiO2 Blood Gas Comments Crit Value Called To Crit Value Called By Crit Value Read Back Blood Gas Notified Time Sodium Potassium Chloride Carbon Dioxide Anion Gap BUN Creatinine Est GFR ( Amer) Est GFR (Non-Af Amer) POC Glucose (mg/dL) 116 H Random Glucose Calcium Total Bilirubin AST ALT Alkaline Phosphatase Total Protein Albumin Globulin Albumin/Globulin Ratio Venous Blood Potassium Urine Color Urine Clarity Urine pH Ur Specific [place] Urine Protein Urine Glucose (UA) Urine Ketones Urine Blood Urine Nitrate Urine Bilirubin Urine Urobilinogen Ur Leukocyte Esterase Urine RBC (Auto) Urine Microscopic WBC Urine Bacteria Alcohol, Quantitative 275 H Influenza Typ A,B (EIA) Grp A Beta Strep Ag 04/24/18 04/24/18 04/24/18 15:15 15:32 15:54 WBC RBC Hgb Hct MCV MCH MCHC RDW Plt Count MPV Neut % (Auto) Lymph % (Auto) Amelia % (Auto) Eos % (Auto) Baso % (Auto) Neut # (Auto) Lymph # (Auto) Amelia # (Auto) Eos # (Auto) Baso # (Auto) pO2 47 VBG pH 7.55 H VBG pCO2 27 L VBG HCO3 26.5 VBG Total CO2 24.4 VBG Base Excess 2.3 H VBG Potassium 3.7 Glucose 107 Lactate 2.2 H FiO2 21.0 Blood Gas Comments Lac=2.2 Crit Value Called To crow [place] Crit Value Called By 22 Crit Value Read Back Y Blood Gas Notified Time 1538 Sodium 144 142.0 Potassium 4.0 Chloride 114 H 117.0 H Carbon Dioxide 20 L Anion Gap 14 BUN 15 Creatinine 0.5 L Est GFR ( Amer) > 60 Est GFR (Non-Af Amer) > 60 POC Glucose (mg/dL) Random Glucose 104 Calcium 7.3 L Total Bilirubin 1.2 AST 112 H ALT 63 Alkaline Phosphatase 145 H Total Protein 7.0 Albumin 3.0 L Globulin 4.0 H Albumin/Globulin Ratio 0.8 L Venous Blood Potassium 3.7 Urine Color Yellow Urine Clarity Slighty-cloudy Urine pH 6.0 Ur Specific [place] 1.021 Urine Protein 30 Urine Glucose (UA) Neg Urine Ketones Negative Urine Blood Small Urine Nitrate Negative Urine Bilirubin Negative Urine Urobilinogen 4.0 Ur Leukocyte Esterase Neg Urine RBC (Auto) 8 H Urine Microscopic WBC 1 Urine Bacteria Rare Alcohol, Quantitative Influenza Typ A,B (EIA) Grp A Beta Strep Ag 04/24/18 04/24/18 17:22 17:22 WBC RBC Hgb Hct MCV MCH MCHC RDW Plt Count MPV Neut % (Auto) Lymph % (Auto) Amelia % (Auto) Eos % (Auto) Baso % (Auto) Neut # (Auto) Lymph # (Auto) Amelia # (Auto) Eos # (Auto) Baso # (Auto) pO2 VBG pH VBG pCO2 VBG HCO3 VBG Total CO2 VBG Base Excess VBG Potassium Glucose Lactate FiO2 Blood Gas Comments Crit Value Called To Crit Value Called By Crit Value Read Back Blood Gas Notified Time Sodium Potassium Chloride Carbon Dioxide Anion Gap BUN Creatinine Est GFR ( Amer) Est GFR (Non-Af Amer) POC Glucose (mg/dL) Random Glucose Calcium Total Bilirubin AST ALT Alkaline Phosphatase Total Protein Albumin Globulin Albumin/Globulin Ratio Venous Blood Potassium Urine Color Urine Clarity Urine pH Ur Specific [place] Urine Protein Urine Glucose (UA) Urine Ketones Urine Blood Urine Nitrate Urine Bilirubin Urine Urobilinogen Ur Leukocyte Esterase Urine RBC (Auto) Urine Microscopic WBC Urine Bacteria Alcohol, Quantitative Influenza Typ A,B (EIA) Negative for flu a/b Grp A Beta Strep Ag Negative Assessment & Plan - Assessment and Plan (Free Text) Assessment: 52 YO with PMHx of ETOH abuse, unwitnessed seizures, cirrhosis (s/p TIPS), hepatic encephalograph is admitted for alcohol intoxication, fever and anemia. Plan: Alcohol intoxication - Etoh level 275 - [facility] protocol prn - IV fluids - Thiamine 100mg PO QD, Folic acid 1mg PO QD, multivitamin 1 tab PO QD - Banana bag which includes Thiamine, folic Acid and Multivitamin Fever - likely 2/2 to withdrawal, r/o infection - WA protocol prn - no leukocytosis - CXR negative for acute lung disease - Urine neg for UTI - abd CT: gallstones w/o acute cholecystitis - negative flu serology and rapid strep A - f/u labs in am - f/u cx Hx of Seizures - likely 2/2 to ETOH Abuse vs seizure, unwitnessed - cont Keppra 500 PO q12 Normocytic anemia - chronic, stable - hx of iron deficiency anemia with hx of GI bleed req multiple transfusions in the past - cont protonix - no signs of active GI bleeding - type and screen - f/u cbc Cirrhosis 2/2 ETOH abuse - MELD score: 14, 6% 3 month mortality - CIWA score 0 - transaminitis DVT prophylaxis -SCDs <Chong Cummins A - Last Filed: 04/25/18 05:14> Results - Vital Signs Recent Vital Signs: Last Vital Signs Temp 99.9 F H 04/24/18 17:24 Pulse 86 04/25/18 03:51 Resp 18 04/25/18 03:51 BP 126/67 04/25/18 03:51 Pulse Ox 96 04/25/18 03:51 - Labs Result Diagrams: 04/24/18 15:15 04/24/18 15:15 Labs: Laboratory Results - last 24 hr 04/24/18 04/24/18 04/24/18 07:35 07:45 15:15 WBC 6.7 RBC 2.82 L Hgb 7.5 L Hct 23.8 L MCV 84.6 D MCH 26.6 L MCHC 31.5 L RDW 18.5 H Plt Count 111 L MPV 7.3 Neut % (Auto) 79.3 H Lymph % (Auto) 11.0 L Amelia % (Auto) 6.8 Eos % (Auto) 1.5 Baso % (Auto) 1.4 Neut # (Auto) 5.3 Lymph # (Auto) 0.7 L Amelia # (Auto) 0.5 Eos # (Auto) 0.1 Baso # (Auto) 0.1 pO2 VBG pH VBG pCO2 VBG HCO3 VBG Total CO2 VBG Base Excess VBG Potassium Glucose Lactate FiO2 Blood Gas Comments Crit Value Called To Crit Value Called By Crit Value Read Back Blood Gas Notified Time Sodium Potassium Chloride Carbon Dioxide Anion Gap BUN Creatinine Est GFR ( Amer) Est GFR (Non-Af Amer) POC Glucose (mg/dL) 116 H Random Glucose Calcium Total Bilirubin AST ALT Alkaline Phosphatase Total Protein Albumin Globulin Albumin/Globulin Ratio Venous Blood Potassium Urine Color Urine Clarity Urine pH Ur Specific [place] Urine Protein Urine Glucose (UA) Urine Ketones Urine Blood Urine Nitrate Urine Bilirubin Urine Urobilinogen Ur Leukocyte Esterase Urine RBC (Auto) Urine Microscopic WBC Urine Bacteria Alcohol, Quantitative 275 H Influenza Typ A,B (EIA) Grp A Beta Strep Ag 04/24/18 04/24/18 04/24/18 15:15 15:32 15:54 WBC RBC Hgb Hct MCV MCH MCHC RDW Plt Count MPV Neut % (Auto) Lymph % (Auto) Amelia % (Auto) Eos % (Auto) Baso % (Auto) Neut # (Auto) Lymph # (Auto) Amelia # (Auto) Eos # (Auto) Baso # (Auto) pO2 47 VBG pH 7.55 H VBG pCO2 27 L VBG HCO3 26.5 VBG Total CO2 24.4 VBG Base Excess 2.3 H VBG Potassium 3.7 Glucose 107 Lactate 2.2 H FiO2 21.0 Blood Gas Comments Lac=2.2 Crit Value Called To crow [place] Crit Value Called By 22 Crit Value Read Back Y Blood Gas Notified Time 1538 Sodium 144 142.0 Potassium 4.0 Chloride 114 H 117.0 H Carbon Dioxide 20 L Anion Gap 14 BUN 15 Creatinine 0.5 L Est GFR ( Amer) > 60 Est GFR (Non-Af Amer) > 60 POC Glucose (mg/dL) Random Glucose 104 Calcium 7.3 L Total Bilirubin 1.2 AST 112 H ALT 63 Alkaline Phosphatase 145 H Total Protein 7.0 Albumin 3.0 L Globulin 4.0 H Albumin/Globulin Ratio 0.8 L Venous Blood Potassium 3.7 Urine Color Yellow Urine Clarity Slighty-cloudy Urine pH 6.0 Ur Specific [place] 1.021 Urine Protein 30 Urine Glucose (UA) Neg Urine Ketones Negative Urine Blood Small Urine Nitrate Negative Urine Bilirubin Negative Urine Urobilinogen 4.0 Ur Leukocyte Esterase Neg Urine RBC (Auto) 8 H Urine Microscopic WBC 1 Urine Bacteria Rare Alcohol, Quantitative Influenza Typ A,B (EIA) Grp A Beta Strep Ag 04/24/18 04/24/18 17:22 17:22 WBC RBC Hgb Hct MCV MCH MCHC RDW Plt Count MPV Neut % (Auto) Lymph % (Auto) Amelia % (Auto) Eos % (Auto) Baso % (Auto) Neut # (Auto) Lymph # (Auto) Amelia # (Auto) Eos # (Auto) Baso # (Auto) pO2 VBG pH VBG pCO2 VBG HCO3 VBG Total CO2 VBG Base Excess VBG Potassium Glucose Lactate FiO2 Blood Gas Comments Crit Value Called To Crit Value Called By Crit Value Read Back Blood Gas Notified Time Sodium Potassium Chloride Carbon Dioxide Anion Gap BUN Creatinine Est GFR ( Amer) Est GFR (Non-Af Amer) POC Glucose (mg/dL) Random Glucose Calcium Total Bilirubin AST ALT Alkaline Phosphatase Total Protein Albumin Globulin Albumin/Globulin Ratio Venous Blood Potassium Urine Color Urine Clarity Urine pH Ur Specific [place] Urine Protein Urine Glucose (UA) Urine Ketones Urine Blood Urine Nitrate Urine Bilirubin Urine Urobilinogen Ur Leukocyte Esterase Urine RBC (Auto) Urine Microscopic WBC Urine Bacteria Alcohol, Quantitative Influenza Typ A,B (EIA) Negative for flu a/b Grp A Beta Strep Ag Negative Attending/Attestation - Attestation I have personally seen and examined this patient.: Yes I have fully participated in the care of the patient.: Yes I have reviewed all pertinent clinical information: Yes Notes (Text): 04/25/18 05:03 I saw, examined and discussed this patient with Dr Rodney. I agree with the Assessment and plan above. This is a 53 years old male with hx of liver Cirrhosis s/p TIPs procedure, is seen at the [facility] on a daily basis. He comes today stating that he probably had a seizure. On my interview he stated having the seizure on the previous day. His alcohol level was 275 with normal temperature initally. He was noted to have a fever 10hrs later while still in the ED. The chest X Ray showed no active disease The CT abdomen/Pelvis showed no acute Pathology The patient will be treated for Alcohol Withdrawal and follow up on Blood culture He will be continued on his Keppra for the seizure His Anemia of Blood loss and chronic disease will be followed. We will also follow the Ammonia level.
[2018-04-25 06:18] LABS: LYMPH # 0.5 K/uL (1.0-4.3); LYMPH % 18.6 % (20.0-40.0); MONO # 0.3 K/uL (0.0-0.8); RBC 2.45 Mil/uL (4.40-5.90)
[2018-04-25 06:25] LABS: BASO % 0.9 % (0.0-2.0); EOS % 1.6 % (0.0-4.0); MEAN CELL VOLUME 83.2 fl (80.0-94.0); MEAN CORPUSCULAR HEMOGLOBIN 26.1 pg (27.0-31.0); MEAN CORPUSCULAR HGB CONC 31.4 g/dL (33.0-37.0); MEAN PLATELET VOLUME 7.5 fl (7.2-11.7); MONO % 10.3 % (0.0-10.0); NEUT # 1.9 K/uL (1.8-7.0); NEUT % 68.6 % (50.0-75.0); NRBC % 0.1 % (0.0-0.0); RED CELL DISTRIBUTION WIDTH 18.4 % (11.5-14.5); WHITE BLOOD COUNT 2.8 K/uL (4.8-10.8)
[2018-04-25 06:28] LABS: HEMOGLOBIN 6.4 g/dL (12.0-18.0)
[2018-04-25 06:33] LABS: ALB/GLOB RATIO 0.7 (1.0-2.1); ALBUMIN 2.5 g/dL (3.5-5.0); ALT/SGPT 54 U/L (21-72); AST/SGOT 91 U/L (17-59); BLOOD UREA NITROGEN 13 mg/dl (9-20); CALCIUM 6.9 mg/dL (8.4-10.2); GFR NON-AFRICAN AMERICAN > 60
[2018-04-25] MEDS ORDERED: Potassium Chloride 20 mEq ER Tab PO ONE ×2 (07:46→08:38)
[2018-04-25] MEDS: Pantoprazole 40 mg EC Tab PO SCH (09:07)
--- NOTE | 2018-04-25 09:27 | CP.PCM.PN ---
<Sherif Hernandez - Last Filed: 04/25/18 11:09> Subjective - Date & Time of Evaluation Date of Evaluation: 04/25/18 Time of Evaluation: 08:45 - Subjective Subjective: Patient seen at bedside this morning, NAD, appears sleepy and confused, denies complain of headache, chest pain, no new events since admission as per nurse reports, patient is pending to start receiving blood transfusions. Objective - Vital Signs/Intake and Output Vital Signs (last 24 hours): Temp Pulse Resp BP Pulse Ox 99.1 F 94 H 16 135/50 L 96 04/25/18 07:25 04/25/18 07:25 04/25/18 07:25 04/25/18 07:25 04/25/18 07:25 - Medications Medications: Current Medications Acetaminophen (Tylenol 325mg Tab) 650 mg PO Q6 PRN PRN Reason: Fever >100.4 F Folic Acid (Folic Acid) 1 mg PO DAILY [facility] Last Admin: 04/25/18 09:07 Dose: 1 mg Lactulose (Enulose) 20 gm PO QID [facility] Last Admin: 04/25/18 07:04 Dose: 20 gm Levetiracetam (Keppra) 500 mg PO Q12H [facility] Last Admin: 04/24/18 23:32 Dose: 500 mg Lorazepam (Ativan) 1 mg IVP Q4 PRN PRN Reason: Symptoms of alcohol withdrawl Pantoprazole Sodium (Protonix Ec Tab) 40 mg PO DAILY [facility] Last Admin: 04/25/18 09:07 Dose: 40 mg Thiamine HCl (Vitamin B1 Tab) 100 mg PO DAILY [facility] Last Admin: 04/25/18 09:08 Dose: 100 mg - Labs Labs: 04/25/18 06:00 04/25/18 06:00 - Constitutional Appears: Unkempt, Older Than Stated Age, Confused, Chronically Ill - Head Exam Head Exam: NORMOCEPHALIC - Eye Exam Eye Exam: PERRL - ENT Exam ENT Exam: Mucous Membranes Moist - Respiratory Exam Respiratory Exam: Clear to Ausculation Bilateral - Cardiovascular Exam Cardiovascular Exam: RRR, +S1, +S2 - GI/Abdominal Exam GI & Abdominal Exam: Distended. absent: Tenderness - Extremities Exam Extremities Exam: Pedal Edema - Neurological Exam Additional comments: Patient is somnolent, uncooperative with neuro exam, appears confused to time and place. - Psychiatric Exam Psychiatric exam: Flat Affect - Skin Skin Exam: Dry, Pallor Assessment and Plan - Assessment and Plan (Free Text) Assessment: 52 Y/O with PMHx of ETOH abuse, unwitnessed seizures, cirrhosis (s/p TIPS in 2015), hepatic encephalopathy is admitted for alcohol intoxication, fever and anemia. Plan: 1.Alcohol intoxication -vs Hepatic encephalopathy at this point - Etoh level 275 - [facility] protocol prn - IV fluids - Thiamine 100mg PO QD, Folic acid 1mg PO QD, multivitamin 1 tab PO QD - Banana bag running which includes Thiamine, folic Acid and Multivitamin 2.Hepatic Encephalopathy -ammonia 128 Umol/L -C/ w Lactulose 3.Fever - likely likely due to withdrawal, r/o infection - [facility] protocol prn - no leukocytosis - CXR negative for acute lung disease - Urine neg for UTI - abd CT: gallstones w/o acute cholecystitis - negative flu serology and rapid strep A - f/u CBC in AM - f/u BC, pending results 4. Hx of Seizures - likely due to ETOH Abuse vs seizure, episode was unwitnessed - cont Keppra 500 PO q12 5.Normocytic anemia - chronic, stable - hx of iron deficiency anemia with hx of GI bleed. Patient has received multiple transfusions in the past. - C/w protonix - no signs of active GI bleeding - type and screen, and 2 units of PRBC to be given - f/u CBC 6.Cirrhosis 2/2 ETOH abuse - MELD score: 14, 6% 3 month mortality - CIWA score 0 - transaminitis 7.DVT prophylaxis -SCDs <Shasha Martino - Last Filed: 04/25/18 15:58> Objective - Vital Signs/Intake and Output Vital Signs (last 24 hours): Temp Pulse Resp BP Pulse Ox 99.2 F 89 18 131/64 95 04/25/18 11:25 04/25/18 11:25 04/25/18 11:25 04/25/18 11:25 04/25/18 11:25 - Medications Medications: Current Medications Acetaminophen (Tylenol 325mg Tab) 650 mg PO Q6 PRN PRN Reason: Fever >100.4 F Last Admin: 04/25/18 09:54 Dose: 650 mg Folic Acid (Folic Acid) 1 mg PO DAILY [facility] Last Admin: 04/25/18 09:07 Dose: 1 mg Piperacillin Sod/Tazobactam (Sod 3.375 gm/ Sodium Chloride) 100 mls @ 100 mls/hr IVPB Q6 [facility]; Protocol Lactulose (Enulose) 20 gm PO QID [facility] Last Admin: 04/25/18 13:39 Dose: 20 gm Levetiracetam (Keppra) 500 mg PO Q12H [facility] Last Admin: 04/25/18 11:00 Dose: 500 mg Lorazepam (Ativan) 1 mg IVP Q4 PRN PRN Reason: Symptoms of alcohol withdrawl Pantoprazole Sodium (Protonix Ec Tab) 40 mg PO DAILY [facility] Last Admin: 04/25/18 09:07 Dose: 40 mg Thiamine HCl (Vitamin B1 Tab) 100 mg PO DAILY [facility] Last Admin: 04/25/18 09:08 Dose: 100 mg - Labs Labs: 04/25/18 06:00 04/25/18 06:00 PT 17.8 Seconds (9.8-13.1) H 04/25/18 14:05 INR 1.6 04/25/18 14:05 APTT 35.4 Seconds (25.6-37.1) 04/25/18 14:05 Attending/Attestation - Attestation I have personally seen and examined this patient.: Yes I have fully participated in the care of the patient.: Yes I have reviewed all pertinent clinical information, including history, physical exam and plan: Yes Notes (Text): 04/25/18 15:5 Agree with findigns and plan as above. patient very ill appearing. hepatic encephalopathy, also possible cholecystitis? Ct demonstrated gallbladder wall thicking and some pericholecystic fluid. Patient spiked temp in ED, with leukopenia as he has hx of pancytopenia due to long standing history of cirrhos is. UCx + gram pos cocci however only 50-100K on cultures. Will intiate abx therapy, obtain ABD US and empiric abx. Surgery also consulted.
--- NOTE | 2018-04-25 10:43 | CT ---
Date of service: 04/24/2018 PROCEDURE: CT Abdomen and Pelvis with contrast HISTORY: Abd pain COMPARISON: Comparison is made with 04/06/2018 TECHNIQUE: Contrast dose: 95 mL of Omnipaque 300 was injected intravenously. Axial and reformatted coronal and sagittal CT images of the abdomen and pelvis were obtained after IV contrast administration. Radiation dose: Total exam DLP = 1709.66 mGy-cm. This CT exam was performed using one or more of the following dose reduction techniques: Automated exposure control, adjustment of the mA and/or kV according to patient size, and/or use of iterative reconstruction technique. FINDINGS: LOWER THORAX: Small right pleural effusion is noted. Trace left pleural effusion is also noted. Bibasilar atelectasis are also noted. LIVER: Cirrhotic manifestation of the liver are again noted. A TIPS stent again noted in place. GALLBLADDER AND BILE DUCTS: Gallstones are noted. Diffuse gallbladder wall thickening and trace pericholecystic fluid noted. PANCREAS: No evidence of acute pancreatitis. The main pancreatic duct is not dilated. SPLEEN: Splenomegaly is again noted. ADRENALS: Unremarkable. No mass. KIDNEYS AND URETERS: Unremarkable. No hydronephrosis. No solid mass. VASCULATURE: There are multiple collateral vessels noted in the upper abdomen specially in the baldev hepatis region and around the splenic hilum likely represent is portal systemic shunts and varices due to portal hypertension and cirrhosis. No aortic aneurysm. No aortic atherosclerotic calcification or mural plaque present. BOWEL: Mild constipation is noted. No obstruction. There is a cecal and ascending colon wall thickening again noted. APPENDIX: No evidence of appendicitis. PERITONEUM: Unremarkable. No free fluid. No free air. LYMPH NODES: Unremarkable. No enlarged lymph nodes. BLADDER: Unremarkable. REPRODUCTIVE: Prostate and seminal vesicles are mildly enlarged. BONES: No acute fracture. OTHER FINDINGS: None. IMPRESSION: Gallstones. Diffuse gallbladder wall thickening and trace pericholecystic fluid. Findings are nonspecific. If clinically warranted further assessment by ultrasound may be obtained. Cirrhosis, hepato splenomegaly with findings consistent with portal hypertension and upper abdomen pheresis. A TIPS stent is seen in place. Mild constipation. Cecal and ascending colon wall thickening noted. Small bilateral pleural effusion and bibasilar atelectasis. Preliminary report contains concordant findings was submitted to the referring [facility] radiology
[2018-04-25 15:14] LABS: INR 1.6; PROTHROMBIN TIME 17.8 Seconds (9.8-13.1)
[2018-04-25 15:16] LABS: PARTIAL THROMBOPLASTIN TIME 35.4 Seconds (25.6-37.1)
[2018-04-25] MEDS: Piperacillin/Tazobact 3.375 GM in Sodium Chloride 0.9% 100 ML IVPB SCH ×2 (16:23→21:32)
--- NOTE | 2018-04-25 20:02 | CP.PCM.PN ---
Subjective - Date & Time of Evaluation Date of Evaluation: 04/25/18 Time of Evaluation: 20:00 - Subjective Subjective: Patient receiving 2nd unit PRBC. Patient could not consent for blood products earlier in the day because of altered mental status. Patient is still unable to consent. Will proceed with second unit given that this is an emergent situation (hgb was 6.4 earlier today) Objective - Vital Signs/Intake and Output Vital Signs (last 24 hours): Temp Pulse Resp BP Pulse Ox 98.8 F 82 18 134/78 98 04/25/18 17:55 04/25/18 17:55 04/25/18 17:55 04/25/18 17:55 04/25/18 15:56 Intake and Output: 04/25/18 04/26/18 18:59 06:59 Intake Total 0 Balance 0 - Medications Medications: Current Medications Acetaminophen (Tylenol 325mg Tab) 650 mg PO Q6 PRN PRN Reason: Fever >100.4 F Last Admin: 04/25/18 09:54 Dose: 650 mg Folic Acid (Folic Acid) 1 mg PO DAILY [facility] Last Admin: 04/25/18 09:07 Dose: 1 mg Piperacillin Sod/Tazobactam (Sod 3.375 gm/ Sodium Chloride) 100 mls @ 100 mls/hr IVPB Q6 [facility]; Protocol Last Admin: 04/25/18 16:23 Dose: 100 mls/hr Lactulose (Enulose) 20 gm PO QID [facility] Last Admin: 04/25/18 16:23 Dose: 20 gm Levetiracetam (Keppra) 500 mg PO Q12H [facility] Last Admin: 04/25/18 11:00 Dose: 500 mg Lorazepam (Ativan) 1 mg IVP Q4 PRN PRN Reason: Symptoms of alcohol withdrawl Pantoprazole Sodium (Protonix Ec Tab) 40 mg PO DAILY [facility] Last Admin: 04/25/18 09:07 Dose: 40 mg Thiamine HCl (Vitamin B1 Tab) 100 mg PO DAILY [facility] Last Admin: 04/25/18 09:08 Dose: 100 mg - Labs Labs: 04/25/18 06:00 04/25/18 06:00 PT 17.8 Seconds (9.8-13.1) H 04/25/18 14:05 INR 1.6 04/25/18 14:05 APTT 35.4 Seconds (25.6-37.1) 04/25/18 14:05
[2018-04-26] MEDS: Piperacillin/Tazobact 3.375 GM in Sodium Chloride 0.9% 100 ML IVPB SCH ×4 (04:36→21:09)
[2018-04-26] MEDS ORDERED: Influenza Vaccine 60 MCG/0.5 ML SYR (3 yr & up) IM ONE (07:06)
--- NOTE | 2018-04-26 07:27 | CP.PCM.CON ---
History of Present Illness - History of Present Illness History of Present Illness: Consult for surgery 53 M w PMH of Cirrhosis sp TIPS , hepatic encephalopathy, etOH abuse came with AMS and seizure. Pt had RUQ pain yesterday . Because of AMS unable to obtain history or ROS. US was taken and shows Gallstones, thicken wall 4mm and CBD of 6mm. PT had fever of 102.5. Denies nausea or vomiting. Tbili was 2, Ammonia le jhon was 128. Pt came with high level of EtoH level . Hgb was 6.4 and got 2 units of PRBC. PMHx: ETOH abuse, unwitnessed seizures, cirrhosis (s/p TIPS), hepatic encephalopathy, esophageal varices, chronic anemia Surgical hx: TIPs in 2014 Social hx: smoker; 3 cigarettes a day, 1.5 ppd previously, etoh abuse Family hx: father [place], mother smoker and of lung cancer, sister diagnosed with colon cancer, recently Allergies: asprin, ibuprofen, naproxen, NSAIDs (nausea for all of them) Next of Kin: Bravo [phone] Review of Systems - Review of Systems Systems not reviewed;Unavailable: Altered Mental Status Past Patient History - Infectious Disease Hx of Infectious Diseases: None - Tetanus Immunizations Tetanus Immunization: Unknown - Past Medical History & Family History Past Medical History?: Yes - Past Social History Smoking Status: occassiona - CARDIAC Hx Cardiac Disorders: No - PULMONARY Hx Respiratory Disorders: No - NEUROLOGICAL Hx Neurological Disorder: Yes Hx Seizures: Yes - HEENT Hx HEENT Problems: No - RENAL Hx Chronic Kidney Disease: No - ENDOCRINE/METABOLIC Hx Endocrine Disorders: No - HEMATOLOGICAL/ONCOLOGICAL Hx Anemia: Yes Hx Human Immunodeficiency Virus (HIV): No - INTEGUMENTARY Hx Dermatological Problems: Yes - MUSCULOSKELETAL/RHEUMATOLOGICAL Hx Musculoskeletal Disorders: Yes Hx Falls: Yes Hx Fractures: Yes Hx Unsteady Gait: Yes - GASTROINTESTINAL Hx Gall Bladder Disease: Yes (Cholelithiasis) Hx Gastritis: Yes Hx Pancreatitis: Yes - GENITOURINARY/GYNECOLOGICAL Hx Genitourinary Disorders: No - PSYCHIATRIC Hx Psychophysiologic Disorder: No Hx Substance Use: No - SURGICAL HISTORY Hx Surgeries: Yes - ANESTHESIA Hx Anesthesia: Yes Hx Anesthesia Reactions: No Hx Malignant Hyperthermia: No Meds Allergies/Adverse Reactions: Allergies Allergy/AdvReac Type Severity Reaction Status Date / Time aspirin AdvReac GI Bleed Verified 04/23/18 17:56 ibuprofen [From Motrin] AdvReac GI Bleed Verified 04/23/18 17:56 naproxen AdvReac GI bleed Verified 04/23/18 17:56 NSAIDS (Non-Steroidal AdvReac GI bleed Verified 04/23/18 17:56 Anti-Inflamma - Medications Medications: Current Medications Acetaminophen (Tylenol 325mg Tab) 650 mg PO Q6 PRN PRN Reason: Fever >100.4 F Last Admin: 04/26/18 06:22 Dose: 650 mg Folic Acid (Folic Acid) 1 mg PO DAILY [facility] Last Admin: 04/25/18 09:07 Dose: 1 mg Piperacillin Sod/Tazobactam (Sod 3.375 gm/ Sodium Chloride) 100 mls @ 100 mls/hr IVPB Q6 [facility]; Protocol Last Admin: 04/26/18 04:36 Dose: 100 mls/hr Influenza Virus Vaccine (Fluzone Quad [id number]) 60 mcg IM .ONCE ONE Stop: 04/26/18 07:07 Lactulose (Enulose) 20 gm PO QID [facility] Last Admin: 04/25/18 21:35 Dose: 20 gm Levetiracetam (Keppra) 500 mg PO Q12H [facility] Last Admin: 04/25/18 21:31 Dose: 500 mg Lorazepam (Ativan) 1 mg IVP Q4 PRN PRN Reason: Symptoms of alcohol withdrawl Last Admin: 04/25/18 23:38 Dose: 1 mg Pantoprazole Sodium (Protonix Ec Tab) 40 mg PO DAILY [facility] Last Admin: 04/25/18 09:07 Dose: 40 mg Thiamine HCl (Vitamin B1 Tab) 100 mg PO DAILY [facility] Last Admin: 04/25/18 09:08 Dose: 100 mg Physical Exam - Constitutional Appears: Non-toxic, In Acute Distress, Chronically Ill - Head Exam Head Exam: ATRAUMATIC, NORMAL INSPECTION, NORMOCEPHALIC - Eye Exam Eye Exam: EOMI - ENT Exam ENT Exam: Mucous Membranes Moist - Neck Exam Neck exam: Positive for: Normal Inspection - Respiratory Exam Respiratory Exam: NORMAL BREATHING PATTERN - Cardiovascular Exam Cardiovascular Exam: REGULAR RHYTHM - GI/Abdominal Exam GI & Abdominal Exam: absent: Distended, Guarding, Hernia, Rigid, Tenderness - Extremities Exam Extremities exam: Positive for: normal inspection - Back Exam Back exam: NORMAL INSPECTION - Neurological Exam Neurological exam: Altered - Skin Skin Exam: Dry, Intact Results - Vital Signs Recent Vital Signs: Last Vital Signs Temp 101 F H 04/26/18 06:30 Pulse 85 04/26/18 06:30 Resp 20 04/26/18 06:30 BP 131/73 04/26/18 06:30 Pulse Ox 96 04/26/18 04:56 - Labs Result Diagrams: 04/25/18 06:00 04/25/18 06:00 Labs: Laboratory Results - last 24 hr 04/25/18 04/25/18 04/25/18 06:00 06:00 14:05 PT 17.8 H INR 1.6 APTT 35.4 Sodium 138 Potassium 3.5 L Chloride 114 H Carbon Dioxide 18 L Anion Gap 10 BUN 13 Creatinine 0.5 L Est GFR ( Amer) > 60 Est GFR (Non-Af Amer) > 60 Random Glucose 103 Calcium 6.9 L Magnesium 1.4 L Total Bilirubin 2.0 H AST 91 H ALT 54 Alkaline Phosphatase 117 Total Protein 6.4 Albumin 2.5 L Globulin 3.9 Albumin/Globulin Ratio 0.7 L Blood Type O POSITIVE Antibody Screen Negative Crossmatch See Detail BBK History Checked Patient has bt Assessment & Plan - Assessment and Plan (Free Text) Assessment: cholecystitis v GB wall thickening 2/2 Cirrhosis Pt is poor surgical candidate -REcommend IR cholecystostomy tube -NPO -IVF -CIWA protocol -Medical management -ABX JORDAN Dyer
[2018-04-26] MEDS ORDERED: Magnesium Sulfate 2 gm/50 ml 2 GM/50 ML BAG IVPB ONE (07:41)
--- NOTE | 2018-04-26 08:11 | CP.PCM.PN ---
Addendum entered and electronically signed by Sherif Hernandez MD 04/26/18 12:33: Plan: 1.Fever Patient is ill appearing and continues spiking fever, UC obtained shows Coagulase positive Satph sensitive to Vanco, Vanco 1G IV Q12h started. Original Note: <Sherif Hernandez - Last Filed: 04/26/18 12:25> Subjective - Date & Time of Evaluation Date of Evaluation: 04/26/18 Time of Evaluation: 08:00 - Subjective Subjective: Patient seen at [facility], is ill appearing, appears sleepy but arousable and is oriented to place, denies complain of headache, chest pain, N/V. Objective - Vital Signs/Intake and Output Vital Signs (last 24 hours): Temp Pulse Resp BP Pulse Ox 101 F H 85 20 131/73 96 04/26/18 06:30 04/26/18 06:30 04/26/18 06:30 04/26/18 06:30 04/26/18 04:56 Intake and Output: 04/26/18 04/26/18 06:59 18:59 Intake Total 710 Balance 710 - Medications Medications: Current Medications Acetaminophen (Tylenol 325mg Tab) 650 mg PO Q6 PRN PRN Reason: Fever >100.4 F Last Admin: 04/26/18 06:22 Dose: 650 mg Folic Acid (Folic Acid) 1 mg PO DAILY [facility] Last Admin: 04/25/18 09:07 Dose: 1 mg Piperacillin Sod/Tazobactam (Sod 3.375 gm/ Sodium Chloride) 100 mls @ 100 mls/hr IVPB Q6 [facility]; Protocol Last Admin: 04/26/18 04:36 Dose: 100 mls/hr Magnesium Sulfate 2 gm/ Sodium (Chloride) 104 mls @ 104 mls/hr IVPB ONCE ONE Stop: 04/26/18 08:40 Lactulose (Enulose) 20 gm PO QID [facility] Last Admin: 04/25/18 21:35 Dose: 20 gm Levetiracetam (Keppra) 500 mg PO Q12H [facility] Last Admin: 04/25/18 21:31 Dose: 500 mg Lorazepam (Ativan) 1 mg IVP Q4 PRN PRN Reason: Symptoms of alcohol withdrawl Last Admin: 04/25/18 23:38 Dose: 1 mg Pantoprazole Sodium (Protonix Ec Tab) 40 mg PO DAILY [facility] Last Admin: 04/25/18 09:07 Dose: 40 mg Thiamine HCl (Vitamin B1 Tab) 100 mg PO DAILY [facility] Last Admin: 04/25/18 09:08 Dose: 100 mg - Labs Labs: 04/25/18 06:00 04/25/18 06:00 PT 17.8 Seconds (9.8-13.1) H 04/25/18 14:05 INR 1.6 04/25/18 14:05 APTT 35.4 Seconds (25.6-37.1) 04/25/18 14:05 - Constitutional Appears: No Acute Distress - Head Exam Head Exam: NORMOCEPHALIC - Eye Exam Eye Exam: EOMI - ENT Exam ENT Exam: Mucous Membranes Moist - Respiratory Exam Respiratory Exam: Clear to Ausculation Bilateral. absent: Wheezes - Cardiovascular Exam Cardiovascular Exam: RRR, +S1, +S2 - GI/Abdominal Exam GI & Abdominal Exam: Distended, Tenderness (tenderness to RUQ) - Extremities Exam Extremities Exam: Pedal Edema - Neurological Exam Additional comments: Sleepy but Arousable - Psychiatric Exam Psychiatric exam: Flat Affect - Skin Skin Exam: Dry, Pallor Assessment and Plan - Assessment and Plan (Free Text) Assessment: 52 Y/O with PMHx of ETOH abuse, unwitnessed seizures, cirrhosis (s/p TIPS in 2014), hepatic encephalopathy is admitted for alcohol intoxication, fever and anemia. Plan: 1.Fever -Patient is ill appearing and still having fevers spikes, 04/26 6:30AM-101F - r/o infection: CT of ABd shows GB thickening and trace pericholecystic fluid, concluded finding nonspecific and Abd US shows multiple gallstones, mild wall thinkening, neg suarez on US with final impression cholelithiasis. -Surgery consult, by Dr. Dyer: recommends IR cholecysteostomy TUbe - c/w antbx: Zosyn IV - no leukocytosis - CXR negative for acute lung disease - Urine neg for UTI -UC shows coagulase neg Staph - negative flu serology and rapid strep A - f/u CBC - f/u BC, no growth after 24 h 2.Hepatic Encephalopathy -ammonia 128 Umol/L -F/u ammonia level -C/ w Lactulose QID - Etoh level was 275 on presentation - [facility] protocol prn - IVF - Thiamine 100mg PO QD, Folic acid 1mg PO QD, multivitamin 1 tab PO QD - Banana bag running which includes Thiamine, folic Acid and Multivitamin 3. Hx of Seizures - likely due to ETOH Abuse vs seizure, episode was unwitnessed - cont Keppra 500 PO q12 4.Normocytic anemia - chronic, stable - hx of iron deficiency anemia with hx of GI bleed. Patient has received multipl e transfusions in the past. - C/w protonix - no signs of active GI bleeding - type and screen, and 2 units of PRBC given - f/u CBC 5.Cirrhosis 2/2 ETOH abuse - MELD score: 14, 6% 3 month mortality - [facility] score 0 - Abnormal LFTs DVT prophylaxis -SCDs <Shasha Martino - Last Filed: 04/26/18 16:06> Objective - Vital Signs/Intake and Output Vital Signs (last 24 hours): Temp Pulse Resp BP Pulse Ox 98.5 F 78 18 136/61 97 04/26/18 12:00 04/26/18 12:00 04/26/18 12:00 04/26/18 12:00 04/26/18 12:00 Intake and Output: 04/26/18 04/26/18 06:59 18:59 Intake Total 710 Balance 710 - Medications Medications: Current Medications Acetaminophen (Tylenol 325mg Tab) 650 mg PO Q6 PRN PRN Reason: Fever >100.4 F Last Admin: 04/26/18 06:22 Dose: 650 mg Folic Acid (Folic Acid) 1 mg PO DAILY [facility] Last Admin: 04/26/18 10:09 Dose: Not Given Piperacillin Sod/Tazobactam (Sod 3.375 gm/ Sodium Chloride) 100 mls @ 100 mls/hr IVPB Q6 [facility]; Protocol Last Admin: 04/26/18 15:06 Dose: 100 mls/hr Vancomycin HCl 1 gm/ Sodium (Chloride) 250 mls @ 166.667 mls/hr IVPB Q12 [facility]; Protocol Lactulose (Enulose) 20 gm PO QID [facility] Last Admin: 04/26/18 15:05 Dose: 20 gm Levetiracetam (Keppra) 500 mg PO Q12H [facility] Last Admin: 04/26/18 15:03 Dose: 500 mg Lorazepam (Ativan) 1 mg IVP Q4 PRN PRN Reason: Symptoms of alcohol withdrawl Last Admin: 04/26/18 14:57 Dose: 1 mg Pantoprazole Sodium (Protonix Ec Tab) 40 mg PO DAILY [facility] Last Admin: 04/26/18 10:09 Dose: Not Given Thiamine HCl (Vitamin B1 Tab) 100 mg PO DAILY [facility] Last Admin: 04/26/18 10:09 Dose: Not Given - Labs Labs: 04/26/18 11:00 04/26/18 08:01 PT 17.8 Seconds (9.8-13.1) H 04/25/18 14:05 INR 1.6 04/25/18 14:05 APTT 35.4 Seconds (25.6-37.1) 04/25/18 14:05 Attending/Attestation - Attestation I have personally seen and examined this patient.: Yes I have fully participated in the care of the patient.: Yes I have reviewed all pertinent clinical information, including history, physical exam and plan: Yes Notes (Text): 04/26/18 16:06 Seen examined and discussed with resident. Agree with findings and plan as above.
[2018-04-26 08:25] LABS: BLOOD UREA NITROGEN 13 mg/dl (9-20); CALCIUM 7.4 mg/dL (8.4-10.2); GFR NON-AFRICAN AMERICAN > 60
[2018-04-26] MEDS: Pantoprazole 40 mg EC Tab PO SCH (10:09)
--- NOTE | 2018-04-26 11:04 | US ---
Date of service: 04/25/2018 HISTORY: Right upper quadrant pain COMPARISON: CT abdomen and pelvis from 04/24/2018 TECHNIQUE: Grayscale imaging was performed. FINDINGS: LIVER: Measures 16.9 cm. Mild increased echogenicity and nodular contour. No mass. No intrahepatic bile duct dilatation. GALLBLADDER: There are multiple gallstones. Mild wall thickening. No pericholecystic fluid. The sonographic Monte's sign is negative. COMMON BILE DUCT: Measures 6.0 mm. No stones. No dilatation. PANCREAS: Unremarkable as visualized. No mass. No ductal dilatation. RIGHT KIDNEY: Measures 11.3cm. Normal echogenicity. No calculus, mass, or hydronephrosis. LEFT KIDNEY: Measures 12.6cm. Normal echogenicity. No calculus, mass, or hydronephrosis. SPLEEN: The spleen is enlarged and measures 19.1 cm. AORTA: No aneurysmal dilatation. IVC: Unremarkable. OTHER FINDINGS: TIPS stent remains patent. There is a right pleural effusion. IMPRESSION: 1. Hepatic cirrhosis. 2. Moderate splenomegaly 3. Cholelithiasis. A preliminary report was provided by [facility].
[2018-04-26 12:10] LABS: HEMOGLOBIN 8.3 g/dL (12.0-18.0); MEAN CELL VOLUME 87.1 fl (80.0-94.0); MEAN CORPUSCULAR HEMOGLOBIN 26.8 pg (27.0-31.0); MEAN CORPUSCULAR HGB CONC 30.8 g/dL (33.0-37.0); RBC 3.08 Mil/uL (4.40-5.90); WHITE BLOOD COUNT 4.5 K/uL (4.8-10.8)
[2018-04-26] MEDS: Potassium Ch 20mEq in D5-1/2NS 1,000 ML IV SCH (20:49)
[2018-04-27] MEDS: Potassium Ch 20mEq in D5-1/2NS 1,000 ML IV SCH (03:45)
[2018-04-27] MEDS: Piperacillin/Tazobact 3.375 GM in Sodium Chloride 0.9% 100 ML IVPB SCH ×4 (04:23→21:19)
[2018-04-27 05:59] LABS: HEMOGLOBIN 8.8 g/dL (12.0-18.0); MEAN CELL VOLUME 84.2 fl (80.0-94.0); MEAN CORPUSCULAR HEMOGLOBIN 27.3 pg (27.0-31.0); MEAN CORPUSCULAR HGB CONC 32.5 g/dL (33.0-37.0); RBC 3.21 Mil/uL (4.40-5.90); RED CELL DISTRIBUTION WIDTH 17.6 % (11.5-14.5); WHITE BLOOD COUNT 5.5 K/uL (4.8-10.8)
[2018-04-27 06:04] LABS: BLOOD UREA NITROGEN 12 mg/dl (9-20); CALCIUM 7.6 mg/dL (8.4-10.2); GFR NON-AFRICAN AMERICAN > 60
--- NOTE | 2018-04-27 08:03 | PQF ---
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 The patient's Clinical Indicators include: History of Cirrhosis of the Liver. CBC monitored, transfusion of PRBC Query created by: Maribell Willingham on 04/27/2018 6:57 AM Electronically signed by: Shasha Martino MD 04/27/2018 8:00 AM
[2018-04-27] MEDS: Pantoprazole 40 mg EC Tab PO SCH (08:37)
--- NOTE | 2018-04-27 09:29 | CP.PCM.PN ---
<Malihaliyah MccallSherif - Last Filed: 04/27/18 14:35> Subjective - Date & Time of Evaluation Date of Evaluation: 04/27/18 Time of Evaluation: 09:15 - Subjective Subjective: Patient seen at bedside, NAD, he was found by nurse kneeling at bedside in the floor earlier in the morning, patient states he wants to buy cigarretes and was trying to get OOB, however on questioning patient he is AAOx3 today, denies complain of headache, chest pain, N/V, back pain, afebrile for more than 24h. Patient was evaluated and no injuries were noted, no acute complains at this time. Objective - Vital Signs/Intake and Output Vital Signs (last 24 hours): Temp Pulse Resp BP Pulse Ox 98.4 F 73 18 124/70 99 04/27/18 08:00 04/27/18 08:00 04/27/18 08:00 04/27/18 08:00 04/27/18 08:00 - Medications Medications: Current Medications Acetaminophen (Tylenol 325mg Tab) 650 mg PO Q6 PRN PRN Reason: Fever >100.4 F Last Admin: 04/26/18 06:22 Dose: 650 mg Folic Acid (Folic Acid) 1 mg PO DAILY [facility] Last Admin: 04/27/18 08:36 Dose: Not Given Piperacillin Sod/Tazobactam (Sod 3.375 gm/ Sodium Chloride) 100 mls @ 100 mls/hr IVPB Q6 [facility]; Protocol Last Admin: 04/27/18 04:23 Dose: 100 mls/hr Vancomycin HCl 1 gm/ Sodium (Chloride) 250 mls @ 166.667 mls/hr IVPB Q12 [facility]; Protocol Last Admin: 04/26/18 21:00 Dose: 166.667 mls/hr Potassium Chloride/Dextrose/Sod Cl (Potassium Chl 20 Meq In D5-1/2ns) 1,000 mls @ 100 mls/hr IV .Q10H [facility] Stop: 04/27/18 17:35 Last Admin: 04/27/18 03:45 Dose: Not Given Lactulose (Enulose) 20 gm PO QID [facility] Last Admin: 04/27/18 09:16 Dose: Not Given Levetiracetam (Keppra) 500 mg PO Q12H [facility] Last Admin: 04/26/18 22:21 Dose: Not Given Lorazepam (Ativan) 1 mg IVP Q4 PRN PRN Reason: Symptoms of alcohol withdrawl Last Admin: 04/27/18 05:00 Dose: 1 mg Pantoprazole Sodium (Protonix Ec Tab) 40 mg PO DAILY [facility] Last Admin: 04/27/18 08:37 Dose: Not Given Thiamine HCl (Vitamin B1 Tab) 100 mg PO DAILY [facility] Last Admin: 04/27/18 09:16 Dose: Not Given - Labs Labs: 04/27/18 04:35 04/27/18 04:35 PT 17.8 Seconds (9.8-13.1) H 04/25/18 14:05 INR 1.6 04/25/18 14:05 APTT 35.4 Seconds (25.6-37.1) 04/25/18 14:05 - Constitutional Appears: No Acute Distress - Head Exam Head Exam: ATRAUMATIC, NORMOCEPHALIC - Eye Exam Eye Exam: EOMI - Neck Exam Neck Exam: Full ROM - Respiratory Exam Respiratory Exam: Clear to Ausculation Bilateral. absent: Wheezes - Cardiovascular Exam Cardiovascular Exam: RRR, +S1, +S2 - GI/Abdominal Exam GI & Abdominal Exam: Soft, Tenderness (mild tenderness to RUQ), Normal Bowel Sounds - Extremities Exam Additional comments: Hip and Pelvic bone palpated and not tenderness or trauma signs noted - Back Exam Back Exam: NORMAL INSPECTION. absent: CVA tenderness (L), CVA tenderness (R), vertebral tenderness - Neurological Exam Neurological Exam: Alert, Awake, Oriented x3 Assessment and Plan - Assessment and Plan (Free Text) Assessment: 52 Y/O with PMHx of ETOH abuse, unwitnessed seizures, cirrhosis (s/p TIPS in 2015), hepatic encephalopathy is admitted for alcohol intoxication, fever and anemia. Patient today afebrile for more than 24 h, appears more alert is AAOx3, +RUQ pain decreasing likely liver etiology, no abdominal distension noted compared to prior days. Plan: 1.Fever -Afebrile for more than 24 h - r/o infection: CT of ABd shows GB thickening and trace pericholecystic fluid, concluded finding nonspecific and Abd US shows multiple gallstones, mild wall thinkening, neg suarez on US with final impression cholelithiasis. -Surgery consult, by Dr. Dyer: Case rediscussed with Sx, no surgical intervention needed at this time - c/w antbx: Zosyn IV - no leukocytosis - CXR negative for acute lung disease - Urine: UC obtained shows Coagulase negative Satph sensitive to Vanco, Vanco 1G IV Q12h was started on 04/26 - negative flu serology and rapid strep A - f/u CBC - f/u BC, no growth after 24 h 2.Hepatic Encephalopathy -Improving, AAOx3 today -ammonia 69 Umol/L(trend down) - C/ w Lactulose QID - Etoh level was 275 on presentation - [facility] protocol prn - IVF - Thiamine 100mg PO QD, Folic acid 1mg PO QD, multivitamin 1 tab PO QD - Banana bag running which includes Thiamine, folic Acid and Multivitamin 3. Hx of Seizures - likely due to ETOH Abuse vs seizure, episode was unwitnessed - cont Keppra 500 PO q12 4.Normocytic anemia - chronic, stable - hx of iron deficiency anemia with hx of GI bleed. Patient has received multiple transfusions in the past. - C/w protonix - no signs of active GI bleeding - type and screen, and 2 units of PRBC given - f/u CBC 5.Cirrhosis 2/2 ETOH abuse - MELD score: 14, 6% 3 month mortality - CIWA score 0 - Abnormal LFTs DVT prophylaxis -SCDs <Shasha Martino - Last Filed: 04/27/18 16:05> Objective - Vital Signs/Intake and Output Vital Signs (last 24 hours): Temp Pulse Resp BP Pulse Ox 98.5 F 74 20 128/68 97 04/27/18 13:00 04/27/18 13:00 04/27/18 13:00 04/27/18 13:00 04/27/18 13:00 - Medications Medications: Current Medications Acetaminophen (Tylenol 325mg Tab) 650 mg PO Q6 PRN PRN Reason: Fever >100.4 F Last Admin: 04/26/18 06:22 Dose: 650 mg Folic Acid (Folic Acid) 1 mg PO DAILY [facility] Last Admin: 04/27/18 08:36 Dose: Not Given Piperacillin Sod/Tazobactam (Sod 3.375 gm/ Sodium Chloride) 100 mls @ 100 mls/hr IVPB Q6 [facility]; Protocol Last Admin: 04/27/18 12:15 Dose: 100 mls/hr Vancomycin HCl 1 gm/ Sodium (Chloride) 250 mls @ 166.667 mls/hr IVPB Q12 [facility]; Protocol Last Admin: 04/27/18 12:14 Dose: 166.667 mls/hr Lactulose (Enulose) 20 gm PO QID [facility] Last Admin: 04/27/18 13:00 Dose: Not Given Levetiracetam (Keppra) 500 mg PO Q12H [facility] Last Admin: 04/27/18 10:48 Dose: Not Given Lorazepam (Ativan) 1 mg IVP Q4 PRN PRN Reason: Symptoms of alcohol withdrawl Last Admin: 04/27/18 12:23 Dose: 1 mg Nicotine (Nicoderm Cq) 1 patch TD DAILY [facility] Last Admin: 04/27/18 15:30 Dose: 1 patch Pantoprazole Sodium (Protonix Ec Tab) 40 mg PO DAILY [facility] Last Admin: 04/27/18 08:37 Dose: Not Given Thiamine HCl (Vitamin B1 Tab) 100 mg PO DAILY [facility] Last Admin: 04/27/18 09:16 Dose: Not Given - Labs Labs: 04/27/18 04:35 04/27/18 04:35 PT 17.8 Seconds (9.8-13.1) H 04/25/18 14:05 INR 1.6 04/25/18 14:05 APTT 35.4 Seconds (25.6-37.1) 04/25/18 14:05 Attending/Attestation - Attestation I have personally seen and examined this patient.: Yes I have fully participated in the care of the patient.: Yes I have reviewed all pertinent clinical information, including history, physical exam and plan: Yes Notes (Text): 04/27/18 16:05 Seen examined and discussed with resident. Agree with findings and plan as above.
--- NOTE | 2018-04-27 11:18 | PCM.IRP ---
Objective - Vital Signs/Intake and Output Vital Signs (last 24 hours): Vital Signs - 24 hr 04/26/18 04/26/18 04/26/18 12:00 16:42 20:21 Temperature 98.5 F 98.9 F 98.8 F Pulse Rate 78 80 80 Respiratory 18 18 16 Rate Blood Pressure 136/61 141/71 134/67 O2 Sat by Pulse 97 96 100 Oximetry 04/26/18 04/27/18 04/27/18 21:00 00:08 04:44 Temperature 98.8 F 99.2 F 98.9 F Pulse Rate 80 81 81 Respiratory 16 18 18 Rate Blood Pressure 134/67 136/72 110/53 L O2 Sat by Pulse 97 98 97 Oximetry 04/27/18 08:00 Temperature 98.4 F Pulse Rate 73 Respiratory 18 Rate Blood Pressure 124/70 O2 Sat by Pulse 99 Oximetry - Medications Medications: Current Medications Acetaminophen (Tylenol 325mg Tab) 650 mg PO Q6 PRN PRN Reason: Fever >100.4 F Last Admin: 04/26/18 06:22 Dose: 650 mg Folic Acid (Folic Acid) 1 mg PO DAILY [facility] Last Admin: 04/27/18 08:36 Dose: Not Given Piperacillin Sod/Tazobactam (Sod 3.375 gm/ Sodium Chloride) 100 mls @ 100 mls/hr IVPB Q6 [facility]; Protocol Last Admin: 04/27/18 04:23 Dose: 100 mls/hr Vancomycin HCl 1 gm/ Sodium (Chloride) 250 mls @ 166.667 mls/hr IVPB Q12 [facility]; Protocol Last Admin: 04/26/18 21:00 Dose: 166.667 mls/hr Potassium Chloride/Dextrose/Sod Cl (Potassium Chl 20 Meq In D5-1/2ns) 1,000 mls @ 100 mls/hr IV .Q10H [facility] Stop: 04/27/18 17:35 Last Admin: 04/27/18 03:45 Dose: Not Given Lactulose (Enulose) 20 gm PO QID JANNIE Last Admin: 04/27/18 09:16 Dose: Not Given Levetiracetam (Keppra) 500 mg PO Q12H [facility] Last Admin: 04/26/18 22:21 Dose: Not Given Lorazepam (Ativan) 1 mg IVP Q4 PRN PRN Reason: Symptoms of alcohol withdrawl Last Admin: 04/27/18 05:00 Dose: 1 mg Pantoprazole Sodium (Protonix Ec Tab) 40 mg PO DAILY [facility] Last Admin: 04/27/18 08:37 Dose: Not Given Thiamine HCl (Vitamin B1 Tab) 100 mg PO DAILY [facility] Last Admin: 04/27/18 09:16 Dose: Not Given - Labs Labs (last 24 hours): Laboratory Results - last 24 hr 04/26/18 04/27/18 04/27/18 11:00 04:35 04:35 WBC 4.5 L D RBC 3.08 L Hgb 8.3 L Hct 26.8 L MCV 87.1 D MCH 26.8 L MCHC 30.8 L RDW 18.0 H Plt Count 67 L Sodium 135 Potassium 3.7 Chloride 113 H Carbon Dioxide 16 L Anion Gap 10 BUN 12 Creatinine 0.5 L Est GFR ( Amer) > 60 Est GFR (Non-Af Amer) > 60 Random Glucose 94 Calcium 7.6 L Ammonia 69 H D 04/27/18 04:35 WBC 5.5 RBC 3.21 L Hgb 8.8 L Hct 27.0 L MCV 84.2 D MCH 27.3 MCHC 32.5 L RDW 17.6 H Plt Count 83 L Sodium Potassium Chloride Carbon Dioxide Anion Gap BUN Creatinine Est GFR ( Amer) Est GFR (Non-Af Amer) Random Glucose Calcium Ammonia Assessment/Plan - Assessment and Plan (Free Text) Assessment: Case was discussed with Dr. Martino with input from Dr. Bah. Based on my discussion with them there is no IR intervention required at this time. Please consult as and when required. Thank you for this opportunity to serve the patient.
--- NOTE | 2018-04-27 11:42 | CP.PCM.PN ---
Subjective - Date & Time of Evaluation Date of Evaluation: 04/27/18 Time of Evaluation: 11:40 - Subjective Subjective: Surgery Pt seen and examined. No acute events. No fever over 24hrs. c/o abd pain. Denies nausea, vomiting. Pt is getting over etOh withdrwal. Objective - Vital Signs/Intake and Output Vital Signs (last 24 hours): Temp Pulse Resp BP Pulse Ox 98.4 F 73 18 124/70 99 04/27/18 08:00 04/27/18 08:00 04/27/18 08:00 04/27/18 08:00 04/27/18 08:00 - Medications Medications: Current Medications Acetaminophen (Tylenol 325mg Tab) 650 mg PO Q6 PRN PRN Reason: Fever >100.4 F Last Admin: 04/26/18 06:22 Dose: 650 mg Folic Acid (Folic Acid) 1 mg PO DAILY [facility] Last Admin: 04/27/18 08:36 Dose: Not Given Piperacillin Sod/Tazobactam (Sod 3.375 gm/ Sodium Chloride) 100 mls @ 100 mls/hr IVPB Q6 [facility]; Protocol Last Admin: 04/27/18 04:23 Dose: 100 mls/hr Vancomycin HCl 1 gm/ Sodium (Chloride) 250 mls @ 166.667 mls/hr IVPB Q12 [facility]ANN[facility]; Protocol Last Admin: 04/26/18 21:00 Dose: 166.667 mls/hr Potassium Chloride/Dextrose/Sod Cl (Potassium Chl 20 Meq In D5-1/2ns) 1,000 mls @ 100 mls/hr IV .Q10H [facility] Stop: 04/27/18 17:35 Last Admin: 04/27/18 03:45 Dose: Not Given Lactulose (Enulose) 20 gm PO QID [facility] Last Admin: 04/27/18 09:16 Dose: Not Given Levetiracetam (Keppra) 500 mg PO Q12H [facility] Last Admin: 04/27/18 10:48 Dose: Not Given Lorazepam (Ativan) 1 mg IVP Q4 PRN PRN Reason: Symptoms of alcohol withdrawl Last Admin: 04/27/18 05:00 Dose: 1 mg Pantoprazole Sodium (Protonix Ec Tab) 40 mg PO DAILY [facility] Last Admin: 04/27/18 08:37 Dose: Not Given Thiamine HCl (Vitamin B1 Tab) 100 mg PO DAILY [facility] Last Admin: 04/27/18 09:16 Dose: Not Given - Labs Labs: 04/27/18 04:35 04/27/18 04:35 PT 17.8 Seconds (9.8-13.1) H 04/25/18 14:05 INR 1.6 04/25/18 14:05 APTT 35.4 Seconds (25.6-37.1) 04/25/18 14:05 - Constitutional Appears: No Acute Distress - Head Exam Head Exam: ATRAUMATIC, NORMAL INSPECTION, NORMOCEPHALIC - Eye Exam Eye Exam: EOMI, Normal appearance, PERRL Pupil Exam: NORMAL ACCOMODATION, PERRL - ENT Exam ENT Exam: Mucous Membranes Moist, Normal Exam - Neck Exam Neck Exam: Full ROM - Respiratory Exam Respiratory Exam: NORMAL BREATHING PATTERN - Cardiovascular Exam Cardiovascular Exam: REGULAR RHYTHM - GI/Abdominal Exam GI & Abdominal Exam: Tenderness. absent: Distended, Guarding, Hernia, Mass, Rebound - Exam Exam: NORMAL INSPECTION - Extremities Exam Extremities Exam: Full ROM, Normal Inspection - Back Exam Back Exam: NORMAL INSPECTION - Neurological Exam Neurological Exam: Alert, Awake, Oriented x3 - Skin Skin Exam: Dry, Intact, Normal Color, Warm Assessment and Plan - Assessment and Plan (Free Text) Assessment: RUQ pain likely liver etiology US shows gallstones, no pericholecystic fluids, GB wall thinkening likely 2/2 liver issues Afebrile, sxs improving -No acute surgical intervention at this time -ABX -Medical management JORDAN Dyer
[2018-04-28] MEDS: Piperacillin/Tazobact 3.375 GM in Sodium Chloride 0.9% 100 ML IVPB SCH ×3 (04:04→16:57)
[2018-04-28 05:46] LABS: HEMOGLOBIN 8.8 g/dL (12.0-18.0); MEAN CELL VOLUME 84.1 fl (80.0-94.0); MEAN CORPUSCULAR HEMOGLOBIN 27.1 pg (27.0-31.0); MEAN CORPUSCULAR HGB CONC 32.3 g/dL (33.0-37.0); RBC 3.24 Mil/uL (4.40-5.90); WHITE BLOOD COUNT 3.4 K/uL (4.8-10.8)
[2018-04-28 06:01] LABS: BLOOD UREA NITROGEN 14 mg/dl (9-20); CALCIUM 7.8 mg/dL (8.4-10.2); GFR NON-AFRICAN AMERICAN > 60
--- NOTE | 2018-04-28 07:04 | CP.PCM.PN ---
Subjective - Date & Time of Evaluation Date of Evaluation: 04/28/18 Time of Evaluation: 07:02 - Subjective Subjective: Surgery PT seen and examined. No acute events. Afebrile. TOlerating regular diet. Pt refusing lactulose and requesting Ativan. Denies fever, nausea, vomiting, CP, SOB. Objective - Vital Signs/Intake and Output Vital Signs (last 24 hours): Temp Pulse Resp BP Pulse Ox 97.1 F L 86 18 147/95 H 98 04/28/18 05:33 04/28/18 05:33 04/28/18 05:33 04/28/18 05:33 04/28/18 05:33 - Medications Medications: Current Medications Acetaminophen (Tylenol 325mg Tab) 650 mg PO Q6 PRN PRN Reason: Fever >100.4 F Last Admin: 04/26/18 06:22 Dose: 650 mg Folic Acid (Folic Acid) 1 mg PO DAILY [facility] Last Admin: 04/27/18 08:36 Dose: Not Given Piperacillin Sod/Tazobactam (Sod 3.375 gm/ Sodium Chloride) 100 mls @ 100 mls/hr IVPB Q6 [facility]; Protocol Last Admin: 04/28/18 04:04 Dose: 100 mls/hr Vancomycin HCl 1 gm/ Sodium (Chloride) 250 mls @ 166.667 mls/hr IVPB Q12 [facility]; Protocol Last Admin: 04/27/18 21:20 Dose: 166.667 mls/hr Lactulose (Enulose) 20 gm PO QID [facility] Last Admin: 04/27/18 21:18 Dose: Not Given Levetiracetam (Keppra) 500 mg PO Q12H [facility] Last Admin: 04/27/18 21:21 Dose: 500 mg Nicotine (Nicoderm Cq) 1 patch TD DAILY [facility] Last Admin: 04/27/18 15:30 Dose: 1 patch Pantoprazole Sodium (Protonix Ec Tab) 40 mg PO DAILY [facility] Last Admin: 04/27/18 08:37 Dose: Not Given Thiamine HCl (Vitamin B1 Tab) 100 mg PO DAILY [facility] Last Admin: 04/27/18 09:16 Dose: Not Given - Labs Labs: 04/28/18 05:10 04/28/18 05:10 PT 17.8 Seconds (9.8-13.1) H 04/25/18 14:05 INR 1.6 11/05/18 14:05 APTT 35.4 Seconds (25.6-37.1) 04/25/18 14:05 - Constitutional Appears: Unkempt, Chronically Ill - Head Exam Head Exam: ATRAUMATIC, NORMAL INSPECTION, NORMOCEPHALIC - Eye Exam Eye Exam: EOMI, Normal appearance, PERRL Pupil Exam: NORMAL ACCOMODATION, PERRL - ENT Exam ENT Exam: Mucous Membranes Moist, Normal Exam - Neck Exam Neck Exam: Normal Inspection - Respiratory Exam Respiratory Exam: NORMAL BREATHING PATTERN - Cardiovascular Exam Cardiovascular Exam: REGULAR RHYTHM - GI/Abdominal Exam GI & Abdominal Exam: Soft, Normal Bowel Sounds. absent: Tenderness - Extremities Exam Extremities Exam: Full ROM - Back Exam Back Exam: NORMAL INSPECTION - Neurological Exam Neurological Exam: Alert, Awake, CN II-XII Intact, Normal Gait, Oriented x3 - Psychiatric Exam Psychiatric exam: Normal Affect, Normal Mood - Skin Skin Exam: Dry, Intact, Normal Color, Warm Assessment and Plan - Assessment and Plan (Free Text) Assessment: RUQ pain likely liver etiology US shows gallstones, no pericholecystic fluids, GB wall thinkening likely 2/2 liver issues Afebrile, sxs improved. Tolerating diet. -No acute surgical intervention at this time -ABX -Medical management Will DW Dr. Dyer
--- NOTE | 2018-04-28 09:52 | CP.PCM.PN ---
Objective - Vital Signs/Intake and Output Vital Signs (last 24 hours): Temp Pulse Resp BP Pulse Ox 98.5 F 89 18 128/70 99 04/28/18 08:00 04/28/18 08:00 04/28/18 08:00 04/28/18 08:00 04/28/18 08:00 - Medications Medications: Current Medications Acetaminophen (Tylenol 325mg Tab) 650 mg PO Q6 PRN PRN Reason: Fever >100.4 F Last Admin: 04/26/18 06:22 Dose: 650 mg Folic Acid (Folic Acid) 1 mg PO DAILY [facility] Last Admin: 04/27/18 08:36 Dose: Not Given Piperacillin Sod/Tazobactam (Sod 3.375 gm/ Sodium Chloride) 100 mls @ 100 mls/hr IVPB Q6 [facility]; Protocol Last Admin: 04/28/18 04:04 Dose: 100 mls/hr Vancomycin HCl 1 gm/ Sodium (Chloride) 250 mls @ 166.667 mls/hr IVPB Q12 [facility]; Protocol Last Admin: 04/27/18 21:20 Dose: 166.667 mls/hr Lactulose (Enulose) 20 gm PO QID [facility] Last Admin: 04/27/18 21:18 Dose: Not Given Levetiracetam (Keppra) 500 mg PO Q12H [facility] Last Admin: 04/27/18 21:21 Dose: 500 mg Nicotine (Nicoderm Cq) 1 patch TD DAILY [facility] Last Admin: 04/27/18 15:30 Dose: 1 patch Pantoprazole Sodium (Protonix Ec Tab) 40 mg PO DAILY [facility] Last Admin: 04/27/18 08:37 Dose: Not Given Thiamine HCl (Vitamin B1 Tab) 100 mg PO DAILY [facility] Last Admin: 04/27/18 09:16 Dose: Not Given - Labs Labs: 04/28/18 05:10 04/28/18 05:10 PT 17.8 Seconds (9.8-13.1) H 04/25/18 14:05 INR 1.6 04/25/18 14:05 APTT 35.4 Seconds (25.6-37.1) 04/25/18 14:05
--- NOTE | 2018-04-28 10:28 | PQF ---
PROVIDER RESPONSE TEXT: Fever due to cholecystitis REVIEWER QUERY TEXT: Fever of Unknown Origin Cause Fever is noted in the Medical Record. Please clarify the cause of fever (Includes suspected or probab le) Such as: -- Bacterial -- Drug-induced -- Fungal -- Infectious disease -- Malignancy -- Viral -- Unknown origin -- Other, please specify The patient's Clinical Indicators include: Admitted with c/o seizure. + intoxicated, Temp 102.7, cough. WBC 6.7 L shift , lactate 2.2. CXR: No active disease CT ABD: Gallstones. Diffuse gallbladder wall thickening and trace pericholecystic fluid. Findings are nonspecific. . See full report Rx: IVAB Query created by: Maribell Willingham on 04/28/2018 10:07 AM Electronically signed by: Shasha Martino MD 04/28/2018 10:25 AM
[2018-04-28] MEDS: Pantoprazole 40 mg EC Tab PO SCH (10:47)
[2018-04-28 15:50] VITALS: BP 126/69; PULSE 87; RESP 16; TEMP 98.4; O2SAT 99
--- NOTE | 2018-04-28 16:48 | CP.PCM.DIS ---
Provider - Provider Date of Admission: 04/25/18 16:01 Attending physician: Chong Cummins Time Spent in preparation of Discharge (in minutes): 33 Diagnosis - Discharge Diagnosis (1) Anemia Status: Chronic (2) Fever Status: Resolved (3) Alcohol abuse Status: Chronic (4) Abdominal pain Status: Resolved Priority: Medium (5) Alcohol intoxication Status: Resolved (6) Cirrhosis Status: Chronic (7) Abnormal laboratory test result Status: Chronic (8) Chronic anemia Status: Acute (9) Cholelithiasis Status: Chronic Hospital Course - Lab Results Lab Results: Micro Results 04/24/18 15:25 Blood-Venous Blood Culture - Preliminary NO GROWTH AFTER 4 DAYS 04/25/18 16:45 Blood-Venous Blood Culture - Preliminary NO GROWTH AFTER 48 HOURS 04/25/18 16:55 Blood-Venous Blood Culture - Preliminary NO GROWTH AFTER 48 HOURS 04/24/18 17:22 Throat Group A Strep Throat Culture - Final NO BETA STREP GROUP A ISOLATED. 04/24/18 15:54 Urine,Clean Catch Urine Culture - Final Coagulase Neg Staphylococcus Most Recent Lab Values WBC 3.4 K/uL (4.8-10.8) L 04/28/18 05:10 RBC 3.24 Mil/uL (4.40-5.90) L 04/28/18 05:10 Hgb 8.8 g/dL (12.0-18.0) L 04/28/18 05:10 Hct 27.2 % (35.0-51.0) L 04/28/18 05:10 MCV 84.1 fl (80.0-94.0) 04/28/18 05:10 MCH 27.1 pg (27.0-31.0) 04/28/18 05:10 MCHC 32.3 g/dL (33.0-37.0) L 04/28/18 05:10 RDW 18.0 % (11.5-14.5) H 04/28/18 05:10 Plt Count 70 K/uL (130-400) L 04/28/18 05:10 MPV 7.5 fl (7.2-11.7) 04/25/18 06:00 Neut % (Auto) 68.6 % (50.0-75.0) 04/25/18 06:00 Lymph % (Auto) 18.6 % (20.0-40.0) L 04/25/18 06:00 [place] % (Auto) 10.3 % (0.0-10.0) H 04/25/18 06:00 Eos % (Auto) 1.6 % (0.0-4.0) 04/25/18 06:00 Baso % (Auto) 0.9 % (0.0-2.0) 04/25/18 06:00 Neut # (Auto) 1.9 K/uL (1.8-7.0) 04/25/18 06:00 Lymph # (Auto) 0.5 K/uL (1.0-4.3) L 04/25/18 06:00 [place] # (Auto) 0.3 K/uL (0.0-0.8) 04/25/18 06:00 Eos # (Auto) 0.0 K/uL (0.0-0.7) 04/25/18 06:00 Baso # (Auto) 0.0 K/uL (0.0-0.2) 04/25/18 06:00 PT 17.8 Seconds (9.8-13.1) H 04/25/18 14:05 INR 1.6 04/25/18 14:05 APTT 35.4 Seconds (25.6-37.1) 04/25/18 14:05 pO2 47 mm/Hg (30-55) 04/24/18 15:32 VBG pH 7.55 (7.32-7.43) H 04/24/18 15:32 VBG pCO2 27 mmHg (40-60) L 04/24/18 15:32 VBG HCO3 26.5 mmol/L 04/24/18 15:32 VBG Total CO2 24.4 mmol/L (22-28) 04/24/18 15:32 VBG Base Excess 2.3 mmol/L (0.0-2.0) H 04/24/18 15:32 VBG Potassium 3.7 mmol/L (3.6-5.2) 04/24/18 15:32 Sodium 142.0 mmol/L (132-148) 04/24/18 15:32 Chloride 117.0 mmol/L (98-107) H 04/24/18 15:32 Glucose 107 mg/dL (75-110) 04/24/18 15:32 Lactate 2.2 mmol/L (0.7-2.1) H 04/24/18 15:32 FiO2 21.0 % 04/24/18 15:32 Blood Gas Comments Lac=2.2 04/24/18 15:32 Crit Value Called To crow Cunha 04/24/18 15:32 Crit Value Called By 22 04/24/18 15:32 Crit Value Read Back Y 04/24/18 15:32 Blood Gas Notified Time 1538 04/24/18 15:32 Sodium 137 mmol/l (132-148) 04/28/18 05:10 Potassium 4.0 MMOL/L (3.6-5.0) 04/28/18 05:10 Chloride 112 mmol/L (98-107) H 04/28/18 05:10 Carbon Dioxide 19 mmol/L (22-30) L 04/28/18 05:10 Anion Gap 10 (10-20) 04/28/18 05:10 BUN 14 mg/dl (9-20) 04/28/18 05:10 Creatinine 0.5 mg/dl (0.8-1.5) L 04/28/18 05:10 Est GFR ( Amer) > 60 04/28/18 05:10 Est GFR (Non-Af Amer) > 60 04/28/18 05:10 POC Glucose (mg/dL) 116 mg/dL (65-110) H 04/24/18 07:45 Random Glucose 106 mg/dL (75-110) 04/28/18 05:10 Calcium 7.8 mg/dL (8.4-10.2) L 04/28/18 05:10 Magnesium 1.4 MG/DL (1.6-2.3) L 04/25/18 06:00 Total Bilirubin 2.0 mg/dl (0.2-1.3) H 04/25/18 06:00 AST 91 U/L (17-59) H 04/25/18 06:00 ALT 54 U/L (21-72) 04/25/18 06:00 Alkaline Phosphatase 117 U/L (38-126) 04/25/18 06:00 Ammonia 69 umo/L (16-60) H D 04/27/18 04:35 Total Protein 6.4 G/DL (6.3-8.2) 04/25/18 06:00 Albumin 2.5 g/dL (3.5-5.0) L 04/25/18 06:00 Globulin 3.9 gm/dL (2.2-3.9) 04/25/18 06:00 Albumin/Globulin Ratio 0.7 (1.0-2.1) L 04/25/18 06:00 Venous Blood Potassium 3.7 mmol/L (3.6-5.2) 04/24/18 15:32 Urine Color Yellow (YELLOW) 04/24/18 15:54 Urine Clarity Slighty-cloudy (Clear) 04/24/18 15:54 Urine pH 6.0 (5.0-8.0) 04/24/18 15:54 Ur Specific [place] 1.021 (1.003-1.030) 04/24/18 15:54 Urine Protein 30 mg/dL (NEGATIVE) 04/24/18 15:54 Urine Glucose (UA) Neg mg/dL (Normal) 04/24/18 15:54 Urine Ketones Negative mg/dL (NEGATIVE) 04/24/18 15:54 Urine Blood Small (NEGATIVE) 04/24/18 15:54 Urine Nitrate Negative (NEGATIVE) 04/24/18 15:54 Urine Bilirubin Negative (NEGATIVE) 04/24/18 15:54 Urine Urobilinogen 4.0 mg/dL (0.2-1.0) 04/24/18 15:54 Ur Leukocyte Esterase Neg [place]/uL (Negative) 04/24/18 15:54 Urine RBC (Auto) 8 /hpf (0-3) H 04/24/18 15:54 Urine Microscopic WBC 1 /hpf (0-5) 04/24/18 15:54 Urine Bacteria Rare (<OCC) 04/24/18 15:54 Alcohol, Quantitative 275 mg/dl (0-10) H 04/24/18 07:35 Influenza Typ A,B (EIA) Negative for flu a/b (NEGATIVE) 04/24/18 17:22 Grp A Beta Strep Ag Negative (NEGATIVE) 04/24/18 17:22 Blood Type O POSITIVE 04/25/18 06:00 Antibody Screen Negative 04/25/18 06:00 Crossmatch See Detail 04/25/18 06:00 BBK History Checked Patient has bt 04/25/18 06:00 - Hospital Course Hospital Course: 52 Y/O Male with PMHx of ETOH abuse with multiple visits to the ED for ETOH intoxication, unwitnessed seizures, cirrhosis (s/p TIPS in 2014), hepatic encephalopathy, chronic anemia is admitted on 04/24/18 for alcohol intoxication, fever and anemia. During this hospital stay the patient was worked up for fever, BC were done with no growth after 48h, UC showed coagulase neg Satph, a CT of Abdm showed GB thickening and trace pericholecystic fluid, concluded finding nonspecific and Abd US showed multiple gallstones, mild wall thinkening with neg suarez on US with final impression cholelithiasis, surgery was consulted and no surgical intervention was needed. Patient was treated with IV antibiotics Zosyn and Vanco with resolution of fever after the second day of hospitalization. Patient was treated for anemia and received 2 PRBC. Patient has been afebrile for more than 48h, is hemodinamically stable, AAOx3, denies headache, abdominal pain, N/V/D or other acute medical complain at this time of discharge. Decision is made to discharge patient home with instructions to continue outpatient treatment with oral antibx and follow up with his PMD. Patient has chronic medical problems including chronic anemia, decondioning secondary to chronic ETOH abuse and liver cirrhosis with MELD score 14 that required outpatient follow up with PMD. Patient is instructed to follow up within a week with PMD. ED return instructions: Return to the ED if your fever recurs, or you have weakness, abdominal pain, palpitations, or any other acute concerning sypmtoms. Discharge Exam - Head Exam Head Exam: ATRAUMATIC, NORMAL INSPECTION, NORMOCEPHALIC - Eye Exam Eye Exam: EOMI - ENT Exam ENT Exam: Mucous Membranes Moist - Respiratory Exam Respiratory Exam: Clear to PA & Lateral, NORMAL BREATHING PATTERN - Cardiovascular Exam Cardiovascular Exam: RRR, +S1, +S2 - GI/Abdominal Exam GI & Abdominal Exam: Normal Bowel Sounds. absent: Mass - Back Exam Back exam: absent: CVA tenderness (L), CVA tenderness (R) - Neurological Exam Neurological exam: Alert, Oriented x3 - Psychiatric Exam Psychiatric exam: Normal Mood - Skin Skin Exam: Normal Color, Warm Discharge Plan - Discharge Medications Prescriptions: Amoxicillin/Clavulanate [Augmentin 875 MG-125 MG] 1 tab PO Q12 #20 tab - Follow Up Plan Condition: FAIR Disposition: HOME/ ROUTINE Patient education suggested?: Yes Instructions: Gallstones (DC), Alcohol Abuse and Alcoholism (DC) Additional Instructions: take antibiotics as prescribed follow up in [facility] within 1 week-appt wednesday05/06/18 at 3:20pm with dont drink alcohol with medications any worsening of symptoms return to ED for further evaluation Referrals: [facility] [place] [Outside]
== END 2018-04-28 19:45 | disposition home or self-care (01) | DRG 775 ==
LOC: H.ER 05:19 → H.ERHOLD 16:01 → H.TEL 04-25 11:20 → OBSVTOIN 04-25 16:01
PROVIDERS: ADMIT Internal Medicine; ATTEND Internal Medicine
PROC: 30233N1 Transfusion of Nonautologous Red Blood Cells into Peripheral Vein, Percutaneous Approach (ICD-10-PCS; principal; 2018-04-25)
DX: F10.229 Alcohol dependence with intoxication, unspecified (principal); F10.239 Alcohol dependence with withdrawal, unspecified; D61.818 Other pancytopenia; K70.30 Alcoholic cirrhosis of liver without ascites; D50.0 Iron deficiency anemia secondary to blood loss (chronic); I10 Essential (primary) hypertension; K80.10 Calculus of gallbladder with chronic cholecystitis without obstruction; K70.40 Alcoholic hepatic failure without coma; G40.509 Epileptic seizures related to external causes, not intractable, without status epilepticus; D72.818 Other decreased white blood cell count; F17.210 Nicotine dependence, cigarettes, uncomplicated; Y90.8 Blood alcohol level of 240 mg/100 ml or more; Z88.6 Allergy status to analgesic agent

== ENCOUNTER 2018-04-28 21:13 | Emergency (ER) | payer MEDICAID ==
[2018-04-28 21:13] VITALS: BMI 24.0
[2018-04-28 21:28] VITALS: O2SAT 98
--- NOTE | 2018-04-28 22:15 | ED PDOC ---
HPI: Trauma/Fall - HPI Time Seen by Provider: 04/28/18 21:44 Chief Complaint (Nursing): Trauma Chief Complaint (Provider): fall History Per: Patient History/Exam Limitations: no limitations Injury Occurred (Timing): Just Before Arrival Additional Complaint(s): 53 y/o male brought in by EMS for evaluation of fall prior to arrival. Patient states he had wheels put on his walker today and since then walker has been veering off to the right and states tonight it caused him to fall forward over it and land flat on back. Patient states he may have hit back of his head. Currently reports pain to back. Admits to drinking. Denies dizziness, extremity numbness/weakness, neck pain, nausea/vomiting, abdominal pain, bowel/bladder incontinence, dysuria, hematuria Past Medical History Reviewed: Historical Data, Nursing Documentation, Vital Signs Vital Signs: Last Vital Signs Temp 98.0 F 04/28/18 21:26 Pulse 61 04/28/18 21:26 Resp 16 04/28/18 21:26 BP 129/60 04/28/18 21:26 Pulse Ox 98 04/28/18 21:26 - Medical History PMH: Anemia, Anxiety, Back Problems (herniated disc), Deep Vein Thrombosis, Fractures, Gastritis, Gall Bladder Disease (Cholelithiasis), HTN, Pancreatitis, Seizures, Chronic Pain (left shoulder) Denies: CHF, HIV, Hypercholesterolemia, Chronic Kidney Disease, Sexually Transmitted Disease - Surgical History Surgical History: Endoscopy - Family History Family History: States: Unknown Family Hx - Immunization History Hx Tetanus Toxoid Vaccination: Yes Hx Influenza Vaccination: Yes Hx Pneumococcal Vaccination: Yes - Home Medications Home Medications: Ambulatory Orders Medication Instructions Recorded Omeprazole 20 mg PO DAILY #30 03/22/18 Folic Acid 1 mg PO DAILY #30 tab 04/09/18 Lactulose [Enulose] 10 gm PO BID #30 ml 04/09/18 Thiamine [Vitamin B1 Tab] 100 mg PO DAILY #30 tab 04/09/18 Levetiracetam [Keppra] 500 mg PO BID #60 tablet 04/18/18 Amoxicillin/Clavulanate [Augmentin 1 tab PO Q12 #20 tab 04/28/18 875 MG-125 MG] - Allergies Allergies/Adverse Reactions: Allergies Allergy/AdvReac Type Severity Reaction Status Date / Time aspirin AdvReac GI Bleed Verified 04/23/18 17:56 ibuprofen [From Motrin] AdvReac GI Bleed Verified 04/23/18 17:56 naproxen AdvReac GI bleed Verified 04/23/18 17:56 NSAIDS (Non-Steroidal AdvReac GI bleed Verified 04/23/18 17:56 Anti-Inflamma Review of Systems ROS Statement: Except As Marked, All Systems Reviewed And Found Negative Musculoskeletal: Positive for: Back Pain Physical Exam - Reviewed Nursing Documentation Reviewed: Yes Vital Signs Reviewed: Yes - Physical Exam Appears: Positive for: Well, Non-toxic, No Acute Distress Head Exam: Positive for: ATRAUMATIC, NORMAL INSPECTION, NORMOCEPHALIC Skin: Positive for: Normal Color Eye Exam: Positive for: Normal appearance, EOMI, PERRL ENT: Positive for: Normal ENT Inspection Cardiovascular/Chest: Positive for: Regular Rate, Rhythm Respiratory: Positive for: Normal Breath Sounds Gastrointestinal/Abdominal: Positive for: Normal Exam Back: Positive for: Vertebral Tenderness (diffuse forsal and lumbar spine tenderness; no skin changes, bony deformity, edema noted), Muscle Spasm. Nega tive for: L CVA Tenderness, R CVA Tenderness, Decreased ROM Extremity: Positive for: Normal ROM Neurologic/Psych: Positive for: Alert, Oriented (x3) - ECG O2 Sat by Pulse Oximetry: 98 - Progress ED Course And Treament: xray tspine, xray lspine, CT head, PO tylenol CT scan of the head. CLINICAL HISTORY: Headache. TECHNIQUE: Multiple axial CT images were obtained through the brain without IV contrast material. COMMENTS: There is normal configuration of sella turcica. There are no intra or extra- axial collections. There is no mass effect or midline shift. There is no evidence of hematoma formation. No hydrocephalus is present. The ventricles are symmetrical. No abnormal calcifications are present. There is diffuse age-appropriate cerebellar and cerebral atrophy with proportionally dilated ventricles and cortical sulci. There are bilateral periventricular and subcortical white matter hypolucencies compatible with mild chronic microvascular disease. Otherwise, no significant focal abnormalities are seen either in the posterior fossa or supratentorial compartment. Mild chronic mucosal inflammatory changes of the maxillary sinuses and ethmoid air cells. Mild bilateral mastoid effusions. IMPRESSION: 1. Age-appropriate cerebellar and cerebral atrophy. 2. Mild chronic microvascular disease. 3. No evidence of acute intracranial pathology. Thank you for your kind referral of this patient Disposition - Clinical Impression Clinical Impression: Back pain - Disposition Instructions: Low Back Pain in Adults, Upper Back Pain
[2018-04-29 05:48] VITALS: RESP 18
[2018-04-29 05:52] VITALS: BP 122/78; PULSE 89; TEMP 98.7
--- NOTE | 2018-04-29 08:56 | CT ---
Date of service: 04/29/2018 PROCEDURE: CT HEAD WITHOUT CONTRAST. HISTORY: fall COMPARISON: 04/06/2018 TECHNIQUE: Axial computed tomography images were obtained through the head/brain without intravenous contrast. Radiation dose: Total exam DLP = 814.22 mGy-cm. This CT exam was performed using one or more of the following dose reduction techniques: Automated exposure control, adjustment of the mA and/or kV according to patient size, and/or use of iterative reconstruction technique. FINDINGS: HEMORRHAGE: No intracranial hemorrhage. BRAIN: No mass effect or edema. Minimal age-appropriate diffuse atrophy. Moderate chronic periventricular white matter lucency with patchy and confluent deep/subcortical white matter lucency, consistent with microvascular white matter ischemic change. No change from prior examination. No evidence of acute infarct. VENTRICLES: Unremarkable. No hydrocephalus. CALVARIUM: Unremarkable. PARANASAL SINUSES: Chronic sphenoid, ethmoid and bilateral maxillary sinusitis with probable bilateral maxillary retention cyst/polyp. MASTOID AIR CELLS: Unremarkable as visualized. No inflammatory changes. OTHER FINDINGS: None. IMPRESSION: No acute intracranial hemorrhage. Age related atrophy and chronic white matter ischemic change. Chronic paranasal sinusitis. The preliminary findings for this examination were reported by [facility] at 04/29/2018 at 1:44 a.m.. There is concurrence of this report with the preliminary findings.
--- NOTE | 2018-04-29 12:49 | RAD ---
Date of service: 04/29/2018 HISTORY: fall COMPARISON: No prior. FINDINGS: BONES: Alignment maintained. No fracture. DISC SPACES: Normal. SOFT TISSUES: Normal. OTHER FINDINGS: Incidentally noted TIPS stent in liver IMPRESSION: Normal radiographs of the thoracic spine.
--- NOTE | 2018-04-29 12:49 | RAD ---
Date of service: 04/29/2018 PROCEDURE: Radiographs of the Lumbar Spine. HISTORY: fall COMPARISON: No prior. FINDINGS: BONES: Normal alignment. No listhesis. No fracture. Mild levoscoliosis. DISC SPACES: Unremarkable. OTHER FINDINGS: None. IMPRESSION: Mild levoscoliosis. No fracture/dislocation.
== END 2018-04-29 05:55 | disposition home or self-care (01) ==
LOC: H.ER 21:13
DX: M54.9 Dorsalgia, unspecified (principal); W19.XXXA Unspecified fall, initial encounter; Y92.89 Other specified places as the place of occurrence of the external cause

== ENCOUNTER 2018-04-29 14:29 | Emergency (ER) | payer MEDICAID ==
[2018-04-29 14:30] VITALS: BMI 24.0
[2018-04-29 14:54] VITALS: BP 134/69; PULSE 86; RESP 18; TEMP 97.5; O2SAT 100
--- NOTE | 2018-04-29 15:21 | ED PDOC ---
HPI: General Adult Time Seen by Provider: 04/29/18 14:59 Chief Complaint (Nursing): Seizure Chief Complaint (Provider): eval History Per: Patient Additional Complaint(s): Patient was seen in ED yesterday for fall and reiterates today that he fell yesterday. He states he also had a seizure today. He denies drinking lacohol today and denies any fall today. Patient is requesting a sandwich. Past Medical History Reviewed: Historical Data, Nursing Documentation, Vital Signs Vital Signs: Last Vital Signs Temp 97.5 F L 04/29/18 14:50 Pulse 86 04/29/18 14:50 Resp 18 04/29/18 14:50 BP 134/69 04/29/18 14:50 Pulse Ox 100 04/29/18 14:50 - Medical History PMH: Anemia, Anxiety, Back Problems (herniated disc), Deep Vein Thrombosis, Fractures, Gastritis, Gall Bladder Disease (Cholelithiasis), HTN, Pancreatitis, Seizures, Chronic Pain (left shoulder) Denies: CHF, HIV, Hypercholesterolemia, Chronic Kidney Disease, Sexually Transmitted Disease - Surgical History Surgical History: Endoscopy - Family History Family History: States: Unknown Family Hx - Immunization History Hx Tetanus Toxoid Vaccination: Yes Hx Influenza Vaccination: Yes Hx Pneumococcal Vaccination: Yes - Home Medications Home Medications: Ambulatory Orders Medication Instructions Recorded Omeprazole 20 mg PO DAILY #30 capsule. 03/22/18 Folic Acid 1 mg PO DAILY #30 tab 04/09/18 Lactulose [Enulose] 10 gm PO BID #30 ml 04/09/18 Thiamine [Vitamin B1 Tab] 100 mg PO DAILY #30 tab 04/09/18 Levetiracetam [Keppra] 500 mg PO BID #60 tablet 04/18/18 Amoxicillin/Clavulanate [Augmentin 1 tab PO Q12 #20 tab 04/28/18 875 MG-125 MG] - Allergies Allergies/Adverse Reactions: Allergies Allergy/AdvReac Type Severity Reaction Status Date / Time aspirin AdvReac GI Bleed Verified 04/29/18 14:55 ibuprofen [From Motrin] AdvReac GI Bleed Verified 04/29/18 14:55 naproxen AdvReac GI bleed Verified 04/29/18 14:55 NSAIDS (Non-Steroidal AdvReac GI bleed Verified 04/29/18 14:55 Anti-Inflamma Review of Systems ROS Statement: Except As Marked, All Systems Reviewed And Found Negative Cardiovascular: Negative for: Chest Pain Gastrointestinal: Negative for: Vomiting Neurological: Negative for: Headache, Dizziness Physical Exam - Reviewed Nursing Documentation Reviewed: Yes Vital Signs Reviewed: Yes - Physical Exam Appears: Positive for: Non-toxic, No Acute Distress. Negative for: Well (u mkempt, smells of urine) Skin: Positive for: Normal Color. Negative for: Rash Eye Exam: Positive for: Normal appearance Cardiovascular/Chest: Positive for: Regular Rate, Rhythm Respiratory: Positive for: Normal Breath Sounds. Negative for: Wheezing, Respiratory Distress Neurologic/Psych: Positive for: Alert, Oriented, Gait (steady with walker used at baseline) - ECG O2 Sat by Pulse Oximetry: 100 Pulse Ox Interpretation: Normal Medical Decision Making Medical Decision Makin53 y/o with history of alcohol abuse and seizures Patient tolerated sandwich in ED. He is stable for discharge. Disposition - Clinical Impression Clinical Impression: ETOH abuse - Patient ED Disposition Is Patient to be Admitted: No - Disposition Referrals: [facility] [Outside] Disposition: Routine/Home Disposition Time: 16:01 Condition: FAIR Instructions: Alcohol Abuse and Alcoholism (DC) Forms: [employer] (Japanese)
== END 2018-04-29 16:15 | disposition home or self-care (01) ==
LOC: H.ER 14:29
DX: F10.10 Alcohol abuse, uncomplicated (principal); R56.9 Unspecified convulsions

== ENCOUNTER 2018-04-30 02:29 | Emergency (ER) | payer MEDICAID ==
[2018-04-30 02:29] VITALS: BMI 24.0
[2018-04-30 02:42] VITALS: BP 121/64; PULSE 92; TEMP 97.9; O2SAT 98
--- NOTE | 2018-04-30 04:25 | ED PDOC ---
HPI: Psych/Substance Abuse Time Seen by Provider: 04/30/18 02:34 Chief Complaint (Nursing): Alcohol Ingestion Chief Complaint (Provider): Alcohol Ingestion History Per: Patient History/Exam Limitations: no limitations Onset/Duration Of Symptoms: Hrs Current Symptoms Are (Timing): Still Present Suicide/Self Injury Attempted (Context): None Modifying Factor(s): Alcohol Additional Complaint(s): 53 y/o male with a PMHx of seizure disorder brought to the ER [place] the [place] with possible alcohol intoxication. Patient currently offering no complaints at this time. Patient is well known to provider and ER staff for frequent visits and bed malingering behavior. PMD: Non [facility] Provider Past Medical History Reviewed: Historical Data, Nursing Documentation, Vital Signs Vital Signs: Last Vital Signs Temp 97.9 F 04/30/18 02:39 Pulse 92 H 04/30/18 02:39 Resp 18 04/30/18 02:39 BP 121/64 04/30/18 02:39 Pulse Ox 98 04/30/18 02:39 - Medical History PMH: Anemia, Anxiety, Back Problems (herniated disc), Deep Vein Thrombosis, Fractures, Gastritis, Gall Bladder Disease (Cholelithiasis), HTN, Pancreatitis, Pneumonia, Seizures, Chronic Pain (left shoulder) Denies: CHF, HIV, Hypercholesterolemia, Chronic Kidney Disease, Sexually Transmitted Disease - Surgical History Surgical History: Endoscopy - Family History Family History: States: Unknown Family Hx - Social History Alcohol: > 2 Drinks/Day - Immunization History Hx Tetanus Toxoid Vaccination: Yes Hx Influenza Vaccination: Yes Hx Pneumococcal Vaccination: Yes - Home Medications Home Medications: Ambulatory Orders Medication Instructions Recorded RX: Omeprazole 20 mg PO DAILY #30 03/22/18 RX: Folic Acid 1 mg PO DAILY #30 tab 04/09/18 RX: Lactulose [Enulose] 10 gm PO BID #30 ml 04/09/18 RX: Thiamine [Vitamin B1 Tab] 100 mg PO DAILY #30 tab 04/09/18 Levetiracetam [Keppra] 500 mg PO BID #60 tablet 04/18/18 Amoxicillin/Clavulanate [Augmentin 1 tab PO Q12 #20 tab 04/28/18 875 MG-125 MG] - Allergies Allergies/Adverse Reactions: Allergies Allergy/AdvReac Type Severity Reaction Status Date / Time aspirin AdvReac GI Bleed Verified 04/30/18 16:06 ibuprofen [From Motrin] AdvReac GI Bleed Verified 04/30/18 16:06 naproxen AdvReac GI bleed Verified 04/30/18 16:06 NSAIDS (Non-Steroidal AdvReac GI bleed Verified 04/30/18 16:06 Anti-Inflamma Review of Systems ROS Statement: Except As Marked, All Systems Reviewed And Found Negative Psych: Positive for: Other (Alcohol Intoxication) Physical Exam - Reviewed Nursing Documentation Reviewed: Yes Vital Signs Reviewed: Yes - Physical Exam Appears: Positive for: No Acute Distress Head Exam: Positive for: ATRAUMATIC Skin: Positive for: Normal Color, Warm, Dry Eye Exam: Positive for: Normal appearance, EOMI, PERRL Neck: Positive for: Normal, Painless ROM Cardiovascular/Chest: Positive for: Regular Rate, Rhythm. Negative for: Murmur Respiratory: Positive for: Normal Breath Sounds. Negative for: Respiratory Distress Gastrointestinal/Abdominal: Positive for: Normal Exam, Soft. Negative for: Tenderness Extremity: Positive for: Normal ROM. Negative for: Pedal Edema, Deformity Neurologic/Psych: Positive for: Alert, Oriented (x3), Gait (steady). Negative for: Motor/Sensory Deficits - ECG O2 Sat by Pulse Oximetry: 98 (RA) Pulse Ox Interpretation: Normal Medical Decision Making Medical Decision Making: Time: 0426 A/P: Patient presenting with bed malingering behavior. Time: 0700 -- Patient endorsed to Dr. Sousa, pending clinical sobriety. Scribe Attestation: Documented by Tutu Butler, acting as a scribe for Murphy Chiu MD. Provider Scribe Attestation: All medical record entries made by the Scribe were at my direction and personally dictated by me. I have reviewed the chart and agree that the record accurately reflects my personal performance of the history, physical exam, medical decision making, and the department course for this patient. I have also personally directed, reviewed, and agree with the discharge instructions and disposition. Disposition - Clinical Impression Clinical Impression: Alcohol abuse with alcohol-induced disorder - Patient ED Disposition Is Patient to be Admitted: Transfer of Care - Disposition Disposition: Transfer of Care Disposition Time: 07:00 Condition: STABLE Instructions: Alcohol Abuse and Alcoholism (DC) Forms: [employer] (German) Patient Signed Over To: Jonathan Sousa
--- NOTE | 2018-04-30 08:30 | ED PDOC ---
- ECG O2 Sat by Pulse Oximetry: 98 (RA) - Progress Re-evaluation Time: 08:29 Condition: Improved (Awake alert oriented x 3 No focal neuro deficits) Disposition - Clinical Impression Clinical Impression: Alcohol abuse with alcohol-induced disorder - POA Present On Arrival: None - Disposition Disposition: Routine/Home Disposition Time: 08:29 Condition: GOOD Instructions: Alcohol Abuse and Alcoholism (DC) Forms: [employer] (Monegasque)
[2018-04-30 08:32] VITALS: RESP 16
== END 2018-04-30 08:30 | disposition home or self-care (01) ==
LOC: H.ER 02:29
DX: G89.29 Other chronic pain (principal); I10 Essential (primary) hypertension; Z86.718 Personal history of other venous thrombosis and embolism; Z88.6 Allergy status to analgesic agent; Y90.8 Blood alcohol level of 240 mg/100 ml or more

== ENCOUNTER 2018-04-30 11:48 | Emergency (ER) | payer MEDICAID ==
[2018-04-30 11:48] VITALS: BMI 24.0
[2018-04-30 12:05] VITALS: RESP 17
[2018-04-30 12:32] VITALS: O2SAT 97
--- NOTE | 2018-04-30 13:18 | ED PDOC ---
HPI: General Adult Time Seen by Provider: 04/30/18 12:09 Chief Complaint (Nursing): Upper Extremity Problem/Injury Chief Complaint (Provider): Body wide pain History Per: Patient History/Exam Limitations: no limitations Onset/Duration Of Symptoms: Days (x1) Current Symptoms Are (Timing): Still Present Additional Complaint(s): Shreyas Sepulveda, a 53 year old male with a past medical history of seizures and etoh abuse, presents to the ED after being discharged this morning for etoh abuse complaining of body wide pain. Upon further questioning, he complains of left forearm pain. He reports having a seizure last night and falling. He states he does not know how he fell, but whole body and left forearm hurts. He denies head trauma, numbness or tingling to the left arm, pain in the elbow, the ability to move his left arm, dizziness, headache, and palpitations. PCP: none provided Past Medical History Reviewed: Historical Data, Nursing Documentation, Vital Signs Vital Signs: Last Vital Signs Temp 97.8 F 04/30/18 12:28 Pulse 73 04/30/18 12:28 Resp 17 04/30/18 12:28 BP 137/82 04/30/18 12:28 Pulse Ox 97 04/30/18 12:28 - Medical History PMH: Anemia, Anxiety, Back Problems (herniated disc), Deep Vein Thrombosis, Fractures, Gastritis, Gall Bladder Disease (Cholelithiasis), HTN, Pancreatitis, Pneumonia, Seizures, Chronic Pain (left shoulder) Denies: CHF, HIV, Hypercholesterolemia, Chronic Kidney Disease, Sexually Transmitted Disease - Surgical History Surgical History: Endoscopy - Family History Family History: States: Unknown Family Hx - Immunization History Hx Tetanus Toxoid Vaccination: Yes Hx Influenza Vaccination: Yes Hx Pneumococcal Vaccination: Yes - Home Medications Home Medications: Ambulatory Orders Medication Instructions Recorded RX: Omeprazole 20 mg PO DAILY #30 03/22/18 RX: Folic Acid 1 mg PO DAILY #30 tab 04/09/18 RX: Lactulose [Enulose] 10 gm PO BID #30 ml 04/09/18 RX: Thiamine [Vitamin B1 Tab] 100 mg PO DAILY #30 tab 04/09/18 Levetiracetam [Keppra] 500 mg PO BID #60 tablet 04/18/18 Amoxicillin/Clavulanate [Augmentin 1 tab PO Q12 #20 tab 04/28/18 875 MG-125 MG] - Allergies Allergies/Adverse Reactions: Allergies Allergy/AdvReac Type Severity Reaction Status Date / Time aspirin AdvReac GI Bleed Verified 04/30/18 16:06 ibuprofen [From Motrin] AdvReac GI Bleed Verified 04/30/18 16:06 naproxen AdvReac GI bleed Verified 04/30/18 16:06 NSAIDS (Non-Steroidal AdvReac GI bleed Verified 04/30/18 16:06 Anti-Inflamma Review of Systems ROS Statement: Except As Marked, All Systems Reviewed And Found Negative Constitutional: Negative for: Other (trauma, ) Cardiovascular: Negative for: Palpitations Musculoskeletal: Positive for: Arm Pain (left forearm, denies abiltity to move left arm), Other (body wide pain) Neurological: Negative for: Numbness (or tingling in the left forearm), Headache, Dizziness Physical Exam - Reviewed Nursing Documentation Reviewed: Yes Vital Signs Reviewed: Yes - Physical Exam Appears: Positive for: Well (patient took a bottle of vodka out of pocket and took a sip as he was speaking to provider. 2 bottles of vodka were taken from the patient by RN and disposed of. ), No Acute Distress. Negative for: Uncomfortable Head Exam: Positive for: ATRAUMATIC Skin: Positive for: Warm, Dry Eye Exam: Positive for: Normal appearance Neck: Positive for: Normal, Painless ROM Cardiovascular/Chest: Positive for: Regular Rate, Rhythm. Negative for: Edema Respiratory: Positive for: Normal Breath Sounds Pulses-Radial (L): 2+ Pulses-Radial (R): 2+ Back: Positive for: Normal Inspection. Negative for: Vertebral Tenderness Extremity: Positive for: Normal ROM (normal flexion and extension at knee, B/L, right forearm), Other (mild ecchymosis on posterior aspect of left forearm which is tender upon palpation, wrist and hand phalanges w/ good ROM on Left. no ecchymosis or deformity noted on R). Negative for: Deformity (erythema, lacerations,) Neurologic/Psych: Positive for: Alert, Oriented, Motor/Sensory Deficits (normal sensation to light touch on B/L upper and lower extremities. ), Gait (steady) - ECG O2 Sat by Pulse Oximetry: 97 (RA) Pulse Ox Interpretation: Normal Medical Decision Making Medical Decision Making: Time: 1223 Initial plan: --X-ray left forearm --Reevaluate 1406 --X-ray left forearm FINDINGS: BONES: No fracture or destructive lesion. JOINT SPACES: Unremarkable. OTHER FINDINGS: None. IMPRESSION: Unremarkable radiographs of the left forearm. 1441 Upon provider evaluation patient is medically stable, and requires no further treatment in the ED at this time. Patient will be discharged home. Counseling was provided and all questions were answered regarding diagnosis. There is agreement to discharge plan. Return if symptoms persist or worsen. Scribe Attestation: Documented by Ryan Frausto, acting as a scribe for Saba Lund PA-C Provider Scribe Attestation: All medical record entries made by the Scribe were at my direction and personally dictated by me. I have reviewed the chart and agree that the record accurately reflects my personal performance of the history, physical exam, medical decision making, and the department course for this patient. I have also personally directed, reviewed, and agree with the discharge instructions and disposition. Disposition - Clinical Impression Clinical Impression: Left forearm pain, Malingering, Alcoholism - Patient ED Disposition Is Patient to be Admitted: No - Disposition Referrals: Alcoholics Anonymous [Outside] Disposition: Routine/Home Disposition Time: 14:41 Condition: STABLE Additional Instructions: Refrain from further alcohol intake. F/u with alcoholics anonymous for assistance with quitting. Instructions: Muscle and Bone Pain (DC), Alcohol Abuse and Alcoholism (DC) Forms: [employer] (Hungarian) Print Language: SENEGALESE
--- NOTE | 2018-04-30 14:10 | RAD ---
Date of service: 04/30/2018 PROCEDURE: Radiographs of the Left Forearm HISTORY: fall during seizure now w/ Left arm pain COMPARISON: None available. TECHNIQUE: Frontal and lateral views obtained. FINDINGS: BONES: No fracture or destructive lesion. JOINT SPACES: Unremarkable. OTHER FINDINGS: None. IMPRESSION: Unremarkable radiographs of the left forearm.
[2018-04-30 15:21] VITALS: BP 132/74; PULSE 71; TEMP 98.1
== END 2018-04-30 15:20 | disposition home or self-care (01) ==
LOC: H.ER 11:48
DX: M79.632 Pain in left forearm (principal); Z76.5 Malingerer [conscious simulation]; F10.20 Alcohol dependence, uncomplicated; G89.29 Other chronic pain; I10 Essential (primary) hypertension; R56.9 Unspecified convulsions; Z86.718 Personal history of other venous thrombosis and embolism; Z88.6 Allergy status to analgesic agent

== ENCOUNTER 2018-04-30 15:41 | Emergency (ER) | payer MEDICAID ==
[2018-04-30 15:42] VITALS: BMI 24.0
[2018-04-30 16:08] VITALS: RESP 18; O2SAT 100
--- NOTE | 2018-04-30 19:26 | ED PDOC ---
HPI: Psych/Substance Abuse Time Seen by Provider: 04/30/18 16:10 Chief Complaint (Nursing): Seizure History Per: Patient Additional Complaint(s): Pt. states he had a seizure just [employer]. Pt. was just in ED and while in ED pt. was drinking from a bottle of vodka. Pt was discharged. Pt. was seen by this provider 30 mins prior to signing in for this ED visit walking outside of ED with steady, unassisted gait. Past Medical History Reviewed: Historical Data, Nursing Documentation, Vital Signs Vital Signs: Last Vital Signs Temp 98.0 F 04/30/18 16:07 Pulse 78 04/30/18 16:07 Resp 18 04/30/18 16:07 BP 122/76 04/30/18 16:07 Pulse Ox 100 04/30/18 16:07 - Medical History PMH: Anemia, Anxiety, Back Problems (herniated disc), Deep Vein Thrombosis, Fractures, Gastritis, Gall Bladder Disease (Cholelithiasis), HTN, Pancreatitis, Pneumonia, Seizures, Chronic Pain (left shoulder) Denies: CHF, HIV, Hypercholesterolemia, Chronic Kidney Disease, Sexually Transmitted Disease - Surgical History Surgical History: Endoscopy - Family History Family History: States: No Known Family Hx - Immunization History Hx Tetanus Toxoid Vaccination: Yes Hx Influenza Vaccination: Yes Hx Pneumococcal Vaccination: Yes - Home Medications Home Medications: Ambulatory Orders Medication Instructions Recorded RX: Omeprazole 20 mg PO DAILY #30 capsule. 03/22/18 RX: Folic Acid 1 mg PO DAILY #30 tab 04/09/18 RX: Lactulose [Enulose] 10 gm PO BID #30 ml 04/09/18 RX: Thiamine [Vitamin B1 Tab] 100 mg PO DAILY #30 tab 04/09/18 Levetiracetam [Keppra] 500 mg PO BID #60 tablet 04/18/18 Amoxicillin/Clavulanate [Augmentin 1 tab PO Q12 #20 tab 04/28/18 875 MG-125 MG] - Allergies Allergies/Adverse Reactions: Allergies Allergy/AdvReac Type Severity Reaction Status Date / Time aspirin AdvReac GI Bleed Verified 04/30/18 16:06 ibuprofen [From Motrin] AdvReac GI Bleed Verified 04/30/18 16:06 naproxen AdvReac GI bleed Verified 04/30/18 16:06 NSAIDS (Non-Steroidal AdvReac GI bleed Verified 04/30/18 16:06 Anti-Inflamma Review of Systems ROS Statement: Except As Marked, All Systems Reviewed And Found Negative Neurological: Positive for: Seizures Physical Exam - Physical Exam Appears: Positive for: Well, Non-toxic, No Acute Distress Head Exam: Positive for: ATRAUMATIC, NORMAL INSPECTION, NORMOCEPHALIC Skin: Positive for: Normal Color, Warm. Negative for: Rash Eye Exam: Positive for: Normal appearance Cardiovascular/Chest: Positive for: Regular Rate, Rhythm Respiratory: Positive for: Normal Breath Sounds Gastrointestinal/Abdominal: Positive for: Soft. Negative for: Tenderness Neurologic/Psych: Positive for: Alert, Oriented (x3), Gait (steady, unassisted). Negative for: Aphasia, Facial Droop - ECG O2 Sat by Pulse Oximetry: 100 Medical Decision Making Medical Decision Making: FSBS: 129 Disposition - Clinical Impression Clinical Impression: Alcohol intoxication - Patient ED Disposition Is Patient to be Admitted: No - Disposition Disposition: Routine/Home Disposition Time: 19:25 Condition: IMPROVED Forms: [employer] (Guatemalan)
[2018-04-30 19:39] VITALS: BP 122/80; PULSE 76; TEMP 98
== END 2018-04-30 19:38 | disposition home or self-care (01) ==
LOC: H.ER 15:41
DX: F10.129 Alcohol abuse with intoxication, unspecified (principal); G89.29 Other chronic pain; I10 Essential (primary) hypertension; R56.9 Unspecified convulsions; Z86.718 Personal history of other venous thrombosis and embolism; Z88.6 Allergy status to analgesic agent

== ENCOUNTER 2018-04-30 21:32 | Emergency (ER) | payer MEDICAID ==
[2018-04-30 21:32] VITALS: BMI 24.0
--- NOTE | 2018-04-30 21:54 | ED PDOC ---
HPI: Psych/Substance Abuse Time Seen by Provider: 04/30/18 21:52 Chief Complaint (Nursing): Alcohol Ingestion Chief Complaint (Provider): alcohol ingestion History Per: Patient (53 y/o male well known to ED with bed seeking behavior today here 3 rd visit . Medics state patient was noted sleeping. patient believes he had a seizure.) Past Medical History Reviewed: Historical Data, Nursing Documentation, Vital Signs Vital Signs: Last Vital Signs Temp 95.8 F L 04/30/18 21:35 Pulse 96 H 04/30/18 21:35 Resp 18 04/30/18 21:35 BP 124/70 04/30/18 21:35 Pulse Ox 98 04/30/18 21:35 - Medical History PMH: Anemia, Anxiety, Back Problems (herniated disc), Deep Vein Thrombosis, Fractures, Gastritis, Gall Bladder Disease (Cholelithiasis), HTN, Pancreatitis, Pneumonia, Seizures, Chronic Pain (left shoulder) Denies: CHF, HIV, Hypercholesterolemia, Chronic Kidney Disease, Sexually Transmitted Disease - Surgical History Surgical History: Endoscopy - Family History Family History: States: Unknown Family Hx - Immunization History Hx Tetanus Toxoid Vaccination: Yes Hx Influenza Vaccination: Yes Hx Pneumococcal Vaccination: Yes - Home Medications Home Medications: Ambulatory Orders Medication Instructions Recorded Omeprazole 20 mg PO DAILY #30 capsule. 03/22/18 Folic Acid 1 mg PO DAILY #30 tab 04/09/18 Lactulose [Enulose] 10 gm PO BID #30 ml 04/09/18 Thiamine [Vitamin B1 Tab] 100 mg PO DAILY #30 tab 04/09/18 Levetiracetam [Keppra] 500 mg PO BID #60 tablet 04/18/18 Amoxicillin/Clavulanate [Augmentin 1 tab PO Q12 #20 tab 04/28/18 875 MG-125 MG] - Allergies Allergies/Adverse Reactions: Allergies Allergy/AdvReac Type Severity Reaction Status Date / Time aspirin AdvReac GI Bleed Verified 04/30/18 21:35 ibuprofen [From Motrin] AdvReac GI Bleed Verified 04/30/18 21:35 naproxen AdvReac GI bleed Verified 04/30/18 21:35 NSAIDS (Non-Steroidal AdvReac GI bleed Verified 04/30/18 21:35 Anti-Inflamma Review of Systems ROS Statement: Except As Marked, All Systems Reviewed And Found Negative Physical Exam - Reviewed Nursing Documentation Reviewed: Yes Vital Signs Reviewed: Yes - Physical Exam Appears: Positive for: Well, Non-toxic, No Acute Distress Head Exam: Positive for: ATRAUMATIC, NORMAL INSPECTION, NORMOCEPHALIC Skin: Positive for: Normal Color, Warm, DRY Eye Exam: Positive for: EOMI, Normal appearance, PERRL ENT: Positive for: Normal ENT Inspection Neck: Positive for: Normal, Painless ROM Cardiovascular/Chest: Positive for: Regular Rate, Rhythm Respiratory: Positive for: CNT, Normal Breath Sounds Gastrointestinal/Abdominal: Positive for: Normal Exam, Soft Back: Positive for: Normal Inspection Extremity: Positive for: Normal ROM Neurologic/Psych: Positive for: Alert, Oriented - Laboratory Results Result Diagrams: 04/30/18 22:35 04/30/18 22:35 - ECG O2 Sat by Pulse Oximetry: 98 - Progress ED Course And Treament: PATIENT NOTED PROGRESSIVELY MORE ALERT Medical Decision Making Medical Decision Making: CT CERVICAL SPINE IMPRESSION: 1. Multilevel disk pathology most severe at C5-C6, C6-C7. 2. Straightening of cervical lordosis is seen, suggesting muscular spasm. 3. Grade 1 anterolisthesis of C4 on C5 and C5 on C6 4. No fracture. Thank you for your kind referral of this patient. We appreciate the opportunity to participate in this patient's care. Electronically signed on Apr 30, 2018 10:59:52 PM EST by: Hi Mayers M.D., [place] Certified By ABR & [facility] Fellowship Trained MRI and CT Specialist CT HEAD IMPRESSION: 1. There is generalized parenchymal atrophy noted as demonstrated by symmetrical dilatation of ventricles and sulci. 2. Chronic periventricular and subcortical microvascular disease is seen. 3. No acute intracranial pathology. Electronically signed on Apr 30, 2018 10:57:26 PM EST by: Hi Mayers M.D., [place] Certified By ABR & CBC[facility] Fellowship Trained MRI and CT Specialist Disposition - Clinical Impression Clinical Impression: Alcohol ingestion, Head injury - Patient ED Disposition Is Patient to be Admitted: No - Disposition Disposition: Routine/Home Disposition Time: 03:54 Condition: FAIR Instructions: Closed Head Injury (DC), Effects of Alcohol on Your Health
[2018-04-30 22:40] LABS: BASO % 0.4 % (0.0-2.0); EOS # 0.3 K/uL (0.0-0.7); EOS % 5.6 % (0.0-4.0); HEMOGLOBIN 8.6 g/dL (12.0-18.0); LYMPH % 18.4 % (20.0-40.0); MEAN CELL VOLUME 91.7 fl (80.0-94.0); MEAN CORPUSCULAR HEMOGLOBIN 27.1 pg (27.0-31.0); MEAN CORPUSCULAR HGB CONC 29.6 g/dL (33.0-37.0); MEAN PLATELET VOLUME 8.8 fl (7.2-11.7); MONO # 0.8 K/uL (0.0-0.8); MONO % 13.9 % (0.0-10.0); NEUT # 3.4 K/uL (1.8-7.0); NEUT % 61.7 % (50.0-75.0); NRBC % 0.1 % (0.0-0.0); RBC 3.19 Mil/uL (4.40-5.90); RED CELL DISTRIBUTION WIDTH 19.5 % (11.5-14.5); WHITE BLOOD COUNT 5.5 K/uL (4.8-10.8)
[2018-04-30 23:01] LABS: ALB/GLOB RATIO 0.8 (1.0-2.1); ALBUMIN 3.2 g/dL (3.5-5.0); ALT/SGPT 93 U/L (21-72); AST/SGOT 171 U/L (17-59); BLOOD UREA NITROGEN 14 mg/dl (9-20); CALCIUM 8.1 mg/dL (8.4-10.2); GFR NON-AFRICAN AMERICAN > 60
[2018-05-01 04:34] VITALS: PULSE 97; O2SAT 97
[2018-05-01 07:38] VITALS: BP 127/73; RESP 17; TEMP 97.9
--- NOTE | 2018-05-01 08:36 | CARD ---
APPROVED REPORT Date of service: 04/30/2018 EKG Measurement Heart [id number] <Conclusion> Sinus tachycardia Left ventricular hypertrophy Possible anterior infarct, age undetermined Abnormal ECG
--- NOTE | 2018-05-01 11:49 | CT ---
Date of service: 04/30/2018 PROCEDURE: CT HEAD WITHOUT CONTRAST. HISTORY: head injury COMPARISON: None available. TECHNIQUE: Axial computed tomography images were obtained through the head/brain without intravenous contrast. Radiation dose: Total exam DLP = 993.49 mGy-cm. This CT exam was performed using one or more of the following dose reduction techniques: Automated exposure control, adjustment of the mA and/or kV according to patient size, and/or use of iterative reconstruction technique. FINDINGS: HEMORRHAGE: No intracranial hemorrhage. BRAIN: No mass effect or edema. Diffuse cerebral cortical atrophy is once again identified. Additionally stable small vessel changes are noted in the white matter tracts. VENTRICLES: Unremarkable. No hydrocephalus. CALVARIUM: Unremarkable. PARANASAL SINUSES: Stable from the prior examination with chronic mucosal changes noted. MASTOID AIR CELLS: Unremarkable as visualized. No inflammatory changes. OTHER FINDINGS: None. IMPRESSION: No evidence of intracranial hemorrhage or recent infarct. Stable atrophy and small vessel changes. This agrees with preliminary
--- NOTE | 2018-05-01 12:15 | CT ---
Date of service: 04/30/2018 PROCEDURE: CT Cervical Spine without contrast HISTORY: fall COMPARISON: None available. TECHNIQUE: Axial computed tomography images were obtained of the cervical spine without the use of intravenous contrast. Coronal and sagittal reformatted images were created and reviewed. Radiation dose: Total exam DLP = 339.57 mGy-cm. This CT exam was performed using one or more of the following dose reduction techniques: Automated exposure control, adjustment of the mA and/or kV according to patient size, and/or use of iterative reconstruction technique. FINDINGS: VERTEBRAE: No fracture is seen. Minimal anterior listhesis of C4 over C5 and C5 over C6. No associated jumped facets are identified. Posterior elements are intact. C1-C2 articulation shows no evidence of abnormal widening. DISCS/SPINAL CANAL/NEURAL FORAMINA: Multilevel degenerative disc disease greatest in the lower cervical spine region. Neural foraminal narrowing is noted, greatest at C6-7.. PARASPINAL SOFT TISSUES: No prevertebral soft tissue swelling. Thoracic inlet is unremarkable. OTHER FINDINGS: Lung apices are within normal limits except for some mild emphysematous changes. No adenopathy is seen. Posterior nasopharynx is within normal limits. IMPRESSION: No evidence of acute fracture or malalignment. Degenerative disc disease in the lower cervical spine region. This agrees with preliminary report.
== END 2018-05-01 06:05 | disposition home or self-care (01) ==
LOC: H.ER 21:32
DX: F10.10 Alcohol abuse, uncomplicated (principal); S09.90XA Unspecified injury of head, initial encounter; G89.29 Other chronic pain; Z86.718 Personal history of other venous thrombosis and embolism; Z88.6 Allergy status to analgesic agent; I10 Essential (primary) hypertension

== ENCOUNTER 2018-05-01 11:35 | Emergency (ER) | payer MEDICAID ==
[2018-05-01 11:35] VITALS: BMI 24.0
[2018-05-01 11:48] VITALS: RESP 18; TEMP 98
--- NOTE | 2018-05-01 13:00 | ED PDOC ---
HPI: Seizure Time Seen by Provider: 05/01/18 12:04 Chief Complaint (Nursing): Seizure Chief Complaint (Provider): seizure History Per: Patient History/Exam Limitations: no limitations Additional Complaint(s): Shreyas Palafox, a 53 year old male well known to the ED staff, was brought into the ED by ambulance per patient's request due to a seizure today. Patient was seen in the ED 4 times yesterday complaining of body wide pain and had a head and neck CT that came back unremarkable. He reports he had a seizure today while at a friends house and fell to the ground. Patient states he continues to have body wide pain and weakness to the right side. He complains of neck pain slightly worse than yesterday. Patient denies SOB, chest pain or palpitations. No further medical complaints. Past Medical History Reviewed: Historical Data, Nursing Documentation, Vital Signs Vital Signs: Last Vital Signs Temp 98 F 05/01/18 11:47 Pulse 75 05/01/18 11:47 Resp 18 05/01/18 11:47 BP 127/70 05/01/18 11:47 Pulse Ox 100 05/01/18 11:47 - Medical History PMH: Anemia, Anxiety, Back Problems (herniated disc), Deep Vein Thrombosis, Fractures, Gastritis, Gall Bladder Disease (Cholelithiasis), HTN, Pancreatitis, Pneumonia, Seizures, Chronic Pain (left shoulder) Denies: CHF, HIV, Hypercholesterolemia, Chronic Kidney Disease, Sexually Transmitted Disease - Surgical History Surgical History: Endoscopy - Family History Family History: States: Unknown Family Hx - Immunization History Hx Tetanus Toxoid Vaccination: Yes Hx Influenza Vaccination: Yes Hx Pneumococcal Vaccination: Yes - Home Medications Home Medications: Ambulatory Orders Medication Instructions Recorded RX: Omeprazole 20 mg PO DAILY #30 capsule. 03/22/18 RX: Folic Acid 1 mg PO DAILY #30 tab 04/09/18 RX: Lactulose [Enulose] 10 gm PO BID #30 ml 04/09/18 RX: Thiamine [Vitamin B1 Tab] 100 mg PO DAILY #30 tab 04/09/18 Levetiracetam [Keppra] 500 mg PO BID #60 tablet 04/18/18 Amoxicillin/Clavulanate [Augmentin 1 tab PO Q12 #20 tab 04/28/18 875 MG-125 MG] Bacitracin [Bacitracin Opht OINT] 1 applic OU TID 14 Days tube 05/02/18 - Allergies Allergies/Adverse Reactions: Allergies Allergy/AdvReac Type Severity Reaction Status Date / Time aspirin AdvReac GI Bleed Verified 05/01/18 11:41 ibuprofen [From Motrin] AdvReac GI Bleed Verified 05/01/18 11:41 naproxen AdvReac GI bleed Verified 05/01/18 11:41 NSAIDS (Non-Steroidal AdvReac GI bleed Verified 05/01/18 11:41 Anti-Inflamma Review of Systems ROS Statement: Except As Marked, All Systems Reviewed And Found Negative Constitutional: Positive for: Other (body wide pain) Cardiovascular: Negative for: Chest Pain, Palpitations Respiratory: Negative for: Shortness of Breath Musculoskeletal: Positive for: Neck Pain Neurological: Positive for: Weakness (right side), Seizures Physical Exam - Reviewed Nursing Documentation Reviewed: Yes Vital Signs Reviewed: Yes - Physical Exam Appears: Positive for: Well, Non-toxic, No Acute Distress Head Exam: Positive for: ATRAUMATIC, NORMAL INSPECTION, NORMOCEPHALIC Skin: Positive for: Normal Color, Warm, DRY Eye Exam: Positive for: EOMI, Normal appearance, PERRL ENT: Positive for: Normal ENT Inspection Neck: Negative for: Normal (pain on palpitation of posterior neck at base of skll to shoulder, on inspection no erythema, ecchymosis or deformity), Painless ROM (mild pain with lateral rotation passive and active, no pain with flection or extension) Extremity: Positive for: Normal ROM Neurologic/Psych: Positive for: Alert, Oriented, Other (strenth equal in upper and lower extremities, 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 Negative for: Motor/Sensory Deficits - ECG O2 Sat by Pulse Oximetry: 100 (RA) Pulse Ox Interpretation: Normal Medical Decision Making Medical Decision Making: Time: 12:04 Initial Impression: Initial Plan: --Tylenol 650 mg PO Scribe Attestation: Documented by Justine Harding, acting as a scribe for Saba Lund PA-C. Provider Scribe Attestation: All medical record entries made by the Scribe were at my direction and personally dictated by me. I have reviewed the chart and agree that the record accurately reflects my personal performance of the history, physical exam, medical decision making, and the department course for this patient. I have also personally directed, reviewed, and agree with the discharge instructions and disposition. Disposition - Clinical Impression Clinical Impression: Seizure - Disposition Referrals: Alcoholics Anonymous [Outside] [facility] [Outside] Disposition Time: 15:20 Condition: STABLE Additional Instructions: F/u with primary care doctor for further management of chronic pain. Instructions: Seizures, Adult (DC) Forms: [employer] (Burmese) Print Language: DANISH
[2018-05-01 15:29] VITALS: BP 122/70; PULSE 78
[2018-05-02 00:46] VITALS: O2SAT 100
== END 2018-05-01 15:28 | disposition home or self-care (01) ==
LOC: H.ER 11:35
DX: R56.9 Unspecified convulsions (principal)

== ENCOUNTER 2018-05-01 17:09 | Emergency (ER) | payer MEDICAID ==
[2018-05-01 17:10] VITALS: BMI 24.0
--- NOTE | 2018-05-01 19:05 | ED PDOC ---
HPI: Seizure Time Seen by Provider: 05/01/18 18:20 Chief Complaint (Nursing): Seizure Chief Complaint (Provider): Seizure History Per: Patient History/Exam Limitations: no limitations Additional Complaint(s): Patient seen in ED earlier today with similar complaints, currently complains of headache and generalized body pain. Triage Nurse found two bottles of vodka on the patient which were removed from him. Patient denies unilateral weakness, nausea vomiting or chest pain. No further medical complaints. Past Medical History Reviewed: Historical Data, Nursing Documentation, Vital Signs Vital Signs: Last Vital Signs Temp 97.9 F 05/01/18 17:57 Pulse 98 H 05/01/18 17:57 Resp 20 05/01/18 17:57 BP 138/89 05/01/18 17:57 Pulse Ox 98 05/01/18 17:57 - Medical History PMH: Anemia, Anxiety, Back Problems (herniated disc), Deep Vein Thrombosis, Fractures, Gastritis, Gall Bladder Disease (Cholelithiasis), HTN, Pancreatitis, Pneumonia, Seizures, Chronic Pain (left shoulder) Denies: CHF, HIV, Hypercholesterolemia, Chronic Kidney Disease, Sexually Transmitted Disease - Surgical History Surgical History: Endoscopy - Family History Family History: States: Unknown Family Hx - Immunization History Hx Tetanus Toxoid Vaccination: Yes Hx Influenza Vaccination: Yes Hx Pneumococcal Vaccination: Yes - Home Medications Home Medications: Ambulatory Orders Medication Instructions Recorded RX: Omeprazole 20 mg PO DAILY #30 capsule. 03/22/18 RX: Folic Acid 1 mg PO DAILY #30 tab 04/09/18 RX: Lactulose [Enulose] 10 gm PO BID #30 ml 04/09/18 RX: Thiamine [Vitamin B1 Tab] 100 mg PO DAILY #30 tab 04/09/18 Levetiracetam [Keppra] 500 mg PO BID #60 tablet 04/18/18 Amoxicillin/Clavulanate [Augmentin 1 tab PO Q12 #20 tab 04/28/18 875 MG-125 MG] Bacitracin [Bacitracin Opht OINT] 1 applic OU TID 14 Days tube 05/02/18 - Allergies Allergies/Adverse Reactions: Allergies Allergy/AdvReac Type Severity Reaction Status Date / Time aspirin AdvReac GI Bleed Verified 05/01/18 11:41 ibuprofen [From Motrin] AdvReac GI Bleed Verified 05/01/18 11:41 naproxen AdvReac GI bleed Verified 05/01/18 11:41 NSAIDS (Non-Steroidal AdvReac GI bleed Verified 05/01/18 11:41 Anti-Inflamma Review of Systems ROS Statement: Except As Marked, All Systems Reviewed And Found Negative Constitutional: Positive for: Other (generalized body pain) Cardiovascular: Negative for: Chest Pain Gastrointestinal: Negative for: Nausea, Vomiting Neurological: Positive for: Headache Physical Exam - Reviewed Nursing Documentation Reviewed: Yes Vital Signs Reviewed: Yes - Physical Exam Appears: Positive for: Well, Non-toxic, No Acute Distress Head Exam: Positive for: ATRAUMATIC, NORMAL INSPECTION, NORMOCEPHALIC Eye Exam: Positive for: Conjunctival injection (bilateral), Other (left superior eyelid edema, minimal erythema, increased lacrimation noted in Left eye. ) Extremity: Positive for: Other ( strength equal upper and lower billaterally) Neurologic/Psych: Positive for: Alert, Oriented, Other (speech is slow, smells of alcohol) - ECG O2 Sat by Pulse Oximetry: 98 (RA) Pulse Ox Interpretation: Normal Medical Decision Making Medical Decision Making: Time: 19:01 -Blood alcohol level -Triage nurse found 2 bottles of alcohol on patient which were removed. Time: 20:09 -RN states pt found on floor, security camera reviewed by provider, patient was noted to be bending over at end of bed for a couple of minutes reaching for food that was on the ground and slowly fell onto left shoulder, no head strike noted, patient reexamined stating he has neck pain, no tenderness to palpation of cervical spine or decreased ROM with lateral rotation of neck and palpation of lateral neck bilaterally. No indication for repeat CT cervical spine at this time, Tylenol 650mg given. - Bacitracin eye ointment to Left upper eyelid Time: 20:27 -1:1 observation Disposition - Clinical Impression Clinical Impression: Alcohol abuse with intoxication - Patient ED Disposition Is Patient to be Admitted: No Counseled Patient/Family Regarding: Diagnosis, Need For Followup - Disposition Referrals: Alcoholics Anonymous [Outside] Disposition: Routine/Home Disposition Time: 00:15 Condition: STABLE Prescriptions: Bacitracin [Bacitracin Opht OINT] 1 applic OU TID 14 Days tube Forms: [employer] (Cymro)
[2018-05-01 20:53] VITALS: RESP 18; TEMP 98
[2018-05-02 00:36] VITALS: BP 122/70; PULSE 72
[2018-05-02 00:47] VITALS: O2SAT 98
[2018-05-02] MEDS ORDERED: Bacitracin Opht OINT 3.5GM OU SCH (01:00)
== END 2018-05-02 00:36 | disposition home or self-care (01) ==
LOC: H.ER 17:09
DX: F10.129 Alcohol abuse with intoxication, unspecified (principal)

== ENCOUNTER 2018-05-02 01:45 | Emergency (ER) | payer MEDICAID ==
[2018-05-02 01:45] VITALS: BMI 24.0
--- NOTE | 2018-05-02 02:38 | ED PDOC ---
HPI: Seizure Time Seen by Provider: 05/02/18 02:05 Chief Complaint (Nursing): Seizure Chief Complaint (Provider): seizure History Per: Patient History/Exam Limitations: no limitations Additional Complaint(s): Shreyas Sepulveda is a 53 year old male, with a past medical history of seizure disorder, who presents to the emergency department complaining of seizure activity onset today. Patient reports he was at a bakery and staff there found him on the floor. Patient is well known to provider and ED for multiple visits with similar complaints and bed seeking behavior. Patient was discharged from the ER a few hours ago. No further medical complaints. PMD: None provided. Past Medical History Reviewed: Historical Data, Nursing Documentation, Vital Signs Vital Signs: Last Vital Signs Temp 98.3 F 05/02/18 02:28 Pulse 83 05/02/18 02:28 Resp 16 05/02/18 02:28 BP 117/63 05/02/18 02:28 Pulse Ox 99 05/02/18 02:28 - Medical History PMH: Anemia, Anxiety, Back Problems (herniated disc), Deep Vein Thrombosis, Fractures, Gastritis, Gall Bladder Disease (Cholelithiasis), HTN, Pancreatitis, Pneumonia, Seizures, Chronic Pain (left shoulder) Denies: CHF, HIV, Hypercholesterolemia, Chronic Kidney Disease, Sexually Transmitted Disease - Surgical History Surgical History: Endoscopy - Family History Family History: States: Unknown Family Hx - Social History Current smoker - smoking cessation education provided: No Alcohol: None Drugs: Denies - Immunization History Hx Tetanus Toxoid Vaccination: Yes Hx Influenza Vaccination: Yes Hx Pneumococcal Vaccination: Yes - Home Medications Home Medications: Ambulatory Orders Medication Instructions Recorded RX: Omeprazole 20 mg PO DAILY #30 capsule. 03/22/18 RX: Folic Acid 1 mg PO DAILY #30 tab 04/09/18 RX: Lactulose [Enulose] 10 gm PO BID #30 ml 04/09/18 RX: Thiamine [Vitamin B1 Tab] 100 mg PO DAILY #30 tab 04/09/18 Levetiracetam [Keppra] 500 mg PO BID #60 tablet 04/18/18 Amoxicillin/Clavulanate [Augmentin 1 tab PO Q12 #20 tab 04/28/18 875 MG-125 MG] Bacitracin [Bacitracin Opht OINT] 1 applic OU TID 14 Days tube 05/02/18 - Allergies Allergies/Adverse Reactions: Allergies Allergy/AdvReac Type Severity Reaction Status Date / Time aspirin AdvReac GI Bleed Verified 05/03/18 01:59 ibuprofen [From Motrin] AdvReac GI Bleed Verified 05/03/18 01:59 naproxen AdvReac GI bleed Verified 05/03/18 01:59 NSAIDS (Non-Steroidal AdvReac GI bleed Verified 05/03/18 01:59 Anti-Inflamma Review of Systems ROS Statement: Except As Marked, All Systems Reviewed And Found Negative Neurological: Positive for: Seizures Physical Exam - Reviewed Nursing Documentation Reviewed: Yes Vital Signs Reviewed: Yes - Physical Exam Appears: Positive for: No Acute Distress Head Exam: Positive for: ATRAUMATIC, NORMAL INSPECTION, NORMOCEPHALIC Skin: Positive for: Normal Color, Warm, Dry Eye Exam: Positive for: Normal appearance, EOMI, PERRL ENT: Positive for: Normal ENT Inspection Neck: Positive for: Normal, Painless ROM Cardiovascular/Chest: Positive for: Regular Rate, Rhythm. Negative for: Murmur Respiratory: Positive for: Normal Breath Sounds. Negative for: Respiratory Distress Gastrointestinal/Abdominal: Positive for: Normal Exam, Soft. Negative for: Tenderness Extremity: Positive for: Normal ROM (upper and lower extremities). Negative for: Deformity Neurologic/Psych: Positive for: Alert, Oriented - ECG O2 Sat by Pulse Oximetry: 99 (RA) Pulse Ox Interpretation: Normal Medical Decision Making Medical Decision Making: Time: 02:20 Initial Impression: malingering, seizure (recurrent) Initial Plan: --Reevaluation 04:20 -Patient is medically stable and ambulating with steady gait. instructed to follow up as outpatient and take his medcations. pt requires no further tr eatment in the ED at this time. Patient will be discharged. ----- Scribe Attestation: Documented by Giovany Puri, acting as a scribe for Amanda Washington MD. Provider Scribe Attestation: All medical record entries made by the Lorie were at my direction and personally dictated by me. I have reviewed the chart and agree that the record accurately reflects my personal performance of the history, physical exam, medical decision making, and the department course for this patient. I have also personally directed, reviewed, and agree with the discharge instructions and disposition. Disposition - Clinical Impression Clinical Impression: Focal seizure - Patient ED Disposition Is Patient to be Admitted: No Counseled Patient/Family Regarding: Studies Performed, Diagnosis, Need For Followup - Disposition Disposition: Routine/Home Disposition Time: 04:20 Condition: IMPROVED Additional Instructions: follow up with your primary doctor return to ED with worsening symptoms Instructions: Seizures, Adult (DC) Forms: [employer] (Yoruba)
[2018-05-02 05:24] VITALS: BP 128/65; PULSE 76; RESP 18; TEMP 98.5
[2018-05-04 10:31] VITALS: O2SAT 99
== END 2018-05-02 05:24 | disposition home or self-care (01) ==
LOC: H.ER 01:45
DX: G40.909 Epilepsy, unspecified, not intractable, without status epilepticus (principal); I10 Essential (primary) hypertension; Z86.718 Personal history of other venous thrombosis and embolism; Z88.6 Allergy status to analgesic agent; G89.29 Other chronic pain

== ENCOUNTER 2018-05-02 12:52 | Emergency (ER) | payer MEDICAID ==
[2018-05-02 12:52] VITALS: BMI 24.0
--- NOTE | 2018-05-02 14:52 | ED PDOC ---
HPI: General Adult Time Seen by Provider: 05/02/18 13:33 Chief Complaint (Nursing): Seizure Chief Complaint (Provider): Left ribs pain History Per: Patient History/Exam Limitations: no limitations Onset/Duration Of Symptoms: Hrs Additional History Per: Patient Additional Complaint(s): 53yo male, history of seizures, comes to ER reporting left ribs pain after he fell during a seizure episode earlier today. Patient otherwise offers no additional medical complaints. Patient well known to provider and facility for frequent ER visits due to seizure episodes. Past Medical History Reviewed: Historical Data, Nursing Documentation, Vital Signs Vital Signs: Last Vital Signs Temp 98 F 05/02/18 13:18 Pulse 112 H 05/02/18 13:18 Resp 20 05/02/18 13:18 BP 130/73 05/02/18 13:18 Pulse Ox 99 05/02/18 13:18 - Medical History PMH: Anemia, Anxiety, Back Problems (herniated disc), Deep Vein Thrombosis, Fractures, Gastritis, Gall Bladder Disease (Cholelithiasis), HTN, Pancreatitis, Pneumonia, Seizures, Chronic Pain (left shoulder) Denies: CHF, HIV, Hypercholesterolemia, Chronic Kidney Disease, Sexually Transmitted Disease - Surgical History Surgical History: Endoscopy - Family History Family History: States: Unknown Family Hx - Immunization History Hx Tetanus Toxoid Vaccination: Yes Hx Influenza Vaccination: Yes Hx Pneumococcal Vaccination: Yes - Home Medications Home Medications: Ambulatory Orders Medication Instructions Recorded Omeprazole 20 mg PO DAILY #30 capsule. 03/22/18 Folic Acid 1 mg PO DAILY #30 tab 04/09/18 Lactulose [Enulose] 10 gm PO BID #30 ml 04/09/18 Thiamine [Vitamin B1 Tab] 100 mg PO DAILY #30 tab 04/09/18 Levetiracetam [Keppra] 500 mg PO BID #60 tablet 04/18/18 Amoxicillin/Clavulanate [Augmentin 1 tab PO Q12 #20 tab 04/28/18 875 MG-125 MG] Bacitracin [Bacitracin Opht OINT] 1 applic OU TID 14 Days tube 05/02/18 - Allergies Allergies/Adverse Reactions: Allergies Allergy/AdvReac Type Severity Reaction Status Date / Time aspirin AdvReac GI Bleed Verified 05/02/18 13:18 ibuprofen [From Motrin] AdvReac GI Bleed Verified 05/02/18 13:18 naproxen AdvReac GI bleed Verified 05/02/18 13:18 NSAIDS (Non-Steroidal AdvReac GI bleed Verified 05/02/18 13:18 Anti-Inflamma Review of Systems ROS Statement: Except As Marked, All Systems Reviewed And Found Negative Cardiovascular: Positive for: Other (left sided ribs pain) Neurological: Positive for: Seizures Physical Exam - Reviewed Nursing Documentation Reviewed: Yes Vital Signs Reviewed: Yes - Physical Exam Appears: Positive for: No Acute Distress Head Exam: Positive for: ATRAUMATIC, NORMAL INSPECTION, NORMOCEPHALIC Skin: Positive for: Normal Color Eye Exam: Positive for: Normal appearance Neck: Positive for: Supple Cardiovascular/Chest: Positive for: Regular Rate, Rhythm, Other (left sided ribs tenderness) Respiratory: Positive for: Normal Breath Sounds. Negative for: Rales, Rhonchi, Wheezing, Respiratory Distress Neurologic/Psych: Positive for: Alert, Oriented - ECG O2 Sat by Pulse Oximetry: 99 (RA) Pulse Ox Interpretation: Normal Medical Decision Making Medical Decision Making: Impression: Seizure, left ribs pain s/p fall Plan: -- XR Left ribs No acute fracture seen in ER, old fracture Scribe Attestation: Documented by Kajal Chakraborty, acting as a scribe for STEPHAN Varela Provider Scribe Attestation: All medical record entries made by the Scribe were at my direction and personally dictated by me. I have reviewed the chart and agree that the record accurately reflects my personal performance of the history, physical exam, me dical decision making, and the department course for this patient. I have also personally directed, reviewed, and agree with the discharge instructions and disposition. Disposition - Clinical Impression Clinical Impression: Rib contusion - Patient ED Disposition Is Patient to be Admitted: No Counseled Patient/Family Regarding: Diagnosis, Need For Followup - Disposition Referrals: [facility] [Outside] Disposition: Routine/Home Disposition Time: 15:53 Condition: GOOD Instructions: Contusion (DC) Forms: [employer] (Luxembourgish)
[2018-05-02 16:35] VITALS: BP 123/74; PULSE 98; RESP 16; TEMP 98.2; O2SAT 98
--- NOTE | 2018-05-02 16:41 | RAD ---
Date of service: 05/02/2018 PROCEDURE: Radiographs of the Chest and Left Ribs. HISTORY: rib pain after fall COMPARISON: None available. TECHNIQUE: Frontal radiograph of the chest and multiple oblique radiographs of the left ribs were obtained. FINDINGS: LEFT RIBS: No fracture or focal lesion visualized. LUNGS: Clear. PLEURA: No pneumothorax or pleural fluid. CARDIOVASCULAR: Normal cardiac size. No pulmonary vascular congestion. No aortic atherosclerotic calcification present OTHER FINDINGS: None. IMPRESSION: Unremarkable radiographs of the chest and left ribs. No left rib fracture.
== END 2018-05-02 16:50 | disposition home or self-care (01) ==
LOC: H.ER 12:52
DX: S20.219A Contusion of unspecified front wall of thorax, initial encounter (principal); Z86.718 Personal history of other venous thrombosis and embolism; Z88.6 Allergy status to analgesic agent; R56.9 Unspecified convulsions; I10 Essential (primary) hypertension; G89.29 Other chronic pain; W19.XXXA Unspecified fall, initial encounter

== ENCOUNTER 2018-05-02 18:21 | Emergency (ER) | payer MEDICAID ==
[2018-05-02 18:21] VITALS: BMI 24.0
[2018-05-02 19:44] VITALS: BP 130/81; PULSE 78; RESP 18; TEMP 98; O2SAT 97
--- NOTE | 2018-05-02 21:04 | ED PDOC ---
HPI: Seizure Time Seen by Provider: 05/02/18 20:27 Chief Complaint (Nursing): Seizure Chief Complaint (Provider): Seizure History Per: Patient History/Exam Limitations: no limitations Additional Complaint(s): 53 year old male who is well known to this ED and this provider with a history of seizure disorder presents s/p unwitnessed seizure. No further complaints. Past Medical History Reviewed: Historical Data, Nursing Documentation, Vital Signs Vital Signs: Last Vital Signs Temp 98 F 05/02/18 19:43 Pulse 78 05/02/18 19:43 Resp 18 05/02/18 19:43 BP 130/81 05/02/18 19:43 Pulse Ox 97 05/02/18 19:43 - Medical History PMH: Anemia, Anxiety, Back Problems (herniated disc), Deep Vein Thrombosis, Fractures, Gastritis, Gall Bladder Disease (Cholelithiasis), HTN, Pancreatitis, Pneumonia, Seizures, Chronic Pain (left shoulder) Denies: CHF, HIV, Hypercholesterolemia, Chronic Kidney Disease, Sexually Transmitted Disease - Surgical History Surgical History: Endoscopy - Family History Family History: States: Unknown Family Hx - Immunization History Hx Tetanus Toxoid Vaccination: Yes Hx Influenza Vaccination: Yes Hx Pneumococcal Vaccination: Yes - Home Medications Home Medications: Ambulatory Orders Medication Instructions Recorded Omeprazole 20 mg PO DAILY #30 capsule. 03/22/18 Folic Acid 1 mg PO DAILY #30 tab 04/09/18 Lactulose [Enulose] 10 gm PO BID #30 ml 04/09/18 Thiamine [Vitamin B1 Tab] 100 mg PO DAILY #30 tab 04/09/18 Levetiracetam [Keppra] 500 mg PO BID #60 tablet 04/18/18 Amoxicillin/Clavulanate [Augmentin 1 tab PO Q12 #20 tab 04/28/18 875 MG-125 MG] Bacitracin [Bacitracin Opht OINT] 1 applic OU TID 14 Days tube 05/02/18 - Allergies Allergies/Adverse Reactions: Allergies Allergy/AdvReac Type Severity Reaction Status Date / Time aspirin AdvReac GI Bleed Verified 05/03/18 01:59 ibuprofen [From Motrin] AdvReac GI Bleed Verified 05/03/18 01:59 naproxen AdvReac GI bleed Verified 05/03/18 01:59 NSAIDS (Non-Steroidal AdvReac GI bleed Verified 05/03/18 01:59 Anti-Inflamma Review of Systems ROS Statement: Except As Marked, All Systems Reviewed And Found Negative Neurological: Positive for: Seizures Physical Exam - Reviewed Nursing Documentation Reviewed: Yes Vital Signs Reviewed: Yes - Physical Exam Appears: Positive for: No Acute Distress Head Exam: Positive for: ATRAUMATIC, NORMOCEPHALIC Skin: Positive for: Normal Color, Warm, Dry Eye Exam: Positive for: Normal appearance, EOMI, PERRL Cardiovascular/Chest: Positive for: Regular Rate, Rhythm. Negative for: Murmur Respiratory: Positive for: Normal Breath Sounds. Negative for: Respiratory Distress Gastrointestinal/Abdominal: Positive for: Normal Exam, Soft. Negative for: Tenderness Extremity: Positive for: Normal ROM (upper and lower). Negative for: Pedal Edema, Deformity Neurologic/Psych: Positive for: Alert, Oriented (x3). Negative for: Motor/Sensory Deficits - ECG O2 Sat by Pulse Oximetry: 97 (RA) Pulse Ox Interpretation: Normal Medical Decision Making Medical Decision Making: Time: 2030 Impression: 53 yo with seizures 06:00 --Patient requires no further treatment at this time and is stable for discharge. Scribe Attestation: Documented by Sejal Rodriguez, acting as a scribe for Olaf Fernandez MD Provider Scribe Attestation: All medical record entries made by the Scribe were at my direction and personally dictated by me. I have reviewed the chart and agree that the record accurately reflects my personal performance of the history, physical exam, medical decision making, and the department course for this patient. I have also personally directed, reviewed, and agree with the discharge instructions and disposition. Disposition - Clinical Impression Clinical Impression: Malingering - Patient ED Disposition Is Patient to be Admitted: No - Disposition Disposition: Routine/Home Disposition Time: 06:00 Condition: STABLE Forms: [employer] (Kenyan)
== END 2018-05-03 04:30 | disposition home or self-care (01) ==
LOC: H.ER 18:21
DX: Z76.5 Malingerer [conscious simulation] (principal); G89.29 Other chronic pain; I10 Essential (primary) hypertension; Z86.718 Personal history of other venous thrombosis and embolism; Z88.6 Allergy status to analgesic agent

== ENCOUNTER 2018-05-03 07:05 | Emergency (ER) | payer MEDICAID ==
[2018-05-03 07:05] VITALS: BMI 24.0
[2018-05-03 07:19] VITALS: TEMP 97; O2SAT 98
--- NOTE | 2018-05-03 07:29 | ED PDOC ---
HPI: General Adult Time Seen by Provider: 05/03/18 07:08 Chief Complaint (Nursing): Seizure History Per: Patient Additional Complaint(s): Generalized weakness. No recent seizure. No focal weakness. Past Medical History Vital Signs: Last Vital Signs Temp 97 F L 05/03/18 07:19 Pulse 86 05/03/18 07:19 Resp BP 112/69 05/03/18 07:19 Pulse Ox 98 05/03/18 07:19 - Medical History PMH: Anemia, Anxiety, Back Problems (herniated disc), Deep Vein Thrombosis, Fractures, Gastritis, Gall Bladder Disease (Cholelithiasis), HTN, Pancreatitis, Pneumonia, Seizures, Chronic Pain (left shoulder) Denies: CHF, HIV, Hypercholesterolemia, Chronic Kidney Disease, Sexually Transmitted Disease - Surgical History Surgical History: Endoscopy - Family History Family History: States: Unknown Family Hx - Immunization History Hx Tetanus Toxoid Vaccination: Yes Hx Influenza Vaccination: Yes Hx Pneumococcal Vaccination: Yes - Home Medications Home Medications: Ambulatory Orders Medication Instructions Recorded Omeprazole 20 mg PO DAILY #30 capsule. 03/22/18 Folic Acid 1 mg PO DAILY #30 tab 04/09/18 Lactulose [Enulose] 10 gm PO BID #30 ml 04/09/18 Thiamine [Vitamin B1 Tab] 100 mg PO DAILY #30 tab 04/09/18 Levetiracetam [Keppra] 500 mg PO BID #60 tablet 04/18/18 Amoxicillin/Clavulanate [Augmentin 1 tab PO Q12 #20 tab 04/28/18 875 MG-125 MG] Bacitracin [Bacitracin Opht OINT] 1 applic OU TID 14 Days tube 05/02/18 - Allergies Allergies/Adverse Reactions: Allergies Allergy/AdvReac Type Severity Reaction Status Date / Time aspirin AdvReac GI Bleed Verified 05/03/18 01:59 ibuprofen [From Motrin] AdvReac GI Bleed Verified 05/03/18 01:59 naproxen AdvReac GI bleed Verified 05/03/18 01:59 NSAIDS (Non-Steroidal AdvReac GI bleed Verified 05/03/18 01:59 Anti-Inflamma Review of Systems ROS Statement: Except As Marked, All Systems Reviewed And Found Negative Constitutional: Positive for: Weakness, Malaise Physical Exam - Reviewed Nursing Documentation Reviewed: Yes Vital Signs Reviewed: Yes - Physical Exam Appears: Positive for: Non-toxic, No Acute Distress Head Exam: Positive for: ATRAUMATIC, NORMAL INSPECTION, NORMOCEPHALIC Skin: Positive for: Normal Color, Warm, DRY Eye Exam: Positive for: EOMI, Normal appearance, PERRL ENT: Positive for: Normal ENT Inspection Neck: Positive for: Normal, Painless ROM Cardiovascular/Chest: Positive for: Regular Rate, Rhythm Respiratory: Positive for: CNT, Normal Breath Sounds Gastrointestinal/Abdominal: Positive for: Normal Exam, Soft Back: Positive for: Normal Inspection Extremity: Positive for: Normal ROM Neurologic/Psych: Positive for: Alert, Oriented - ECG O2 Sat by Pulse Oximetry: 98 Disposition - Clinical Impression Clinical Impression: Chronic alcohol abuse - Patient ED Disposition Is Patient to be Admitted: No - Disposition Referrals: [facility] [Outside] Disposition: Routine/Home Disposition Time: 08:11 Condition: FAIR Instructions: Alcohol Abuse and Alcoholism (DC) Forms: [facility] ([place])
[2018-05-03 08:24] VITALS: BP 128/78; PULSE 78; RESP 19
== END 2018-05-03 08:36 | disposition home or self-care (01) ==
LOC: H.ER 07:05
DX: F10.10 Alcohol abuse, uncomplicated (principal)

== ENCOUNTER 2018-05-03 16:40 | Emergency (ER) | payer MEDICAID ==
[2018-05-03 16:41] VITALS: BMI 24.0
[2018-05-03 17:01] VITALS: BP 131/73; PULSE 96; RESP 18; TEMP 98.6; O2SAT 99
--- NOTE | 2018-05-03 17:57 | ED PDOC ---
HPI: Seizure Time Seen by Provider: 05/03/18 17:05 Chief Complaint (Nursing): Seizure Chief Complaint (Provider): Seizure History Per: Patient History/Exam Limitations: no limitations Additional Complaint(s): 53 y/o male who is well known to the ED presents today asking "can I have a sandwich." When asked if there was anything that he could be helped with he states that earlier today he had a seizure. Pt offered Keppra in ER. Past Medical History Reviewed: Historical Data, Nursing Documentation, Vital Signs Vital Signs: Last Vital Signs Temp 98.6 F 05/03/18 16:56 Pulse 96 H 05/03/18 16:56 Resp 18 05/03/18 16:56 BP 131/73 05/03/18 16:56 Pulse Ox 99 05/03/18 16:56 - Medical History PMH: Anemia, Anxiety, Back Problems (herniated disc), Deep Vein Thrombosis, Fractures, Gastritis, Gall Bladder Disease (Cholelithiasis), HTN, Pancreatitis, Pneumonia, Seizures, Chronic Pain (left shoulder) Denies: CHF, HIV, Hypercholesterolemia, Chronic Kidney Disease, Sexually Transmitted Disease - Surgical History Surgical History: Endoscopy - Family History Family History: States: Unknown Family Hx - Immunization History Hx Tetanus Toxoid Vaccination: Yes Hx Influenza Vaccination: Yes Hx Pneumococcal Vaccination: Yes - Home Medications Home Medications: Ambulatory Orders Medication Instructions Recorded Omeprazole 20 mg PO DAILY #30 capsule. 03/22/18 Folic Acid 1 mg PO DAILY #30 tab 04/09/18 Lactulose [Enulose] 10 gm PO BID #30 ml 04/09/18 Thiamine [Vitamin B1 Tab] 100 mg PO DAILY #30 tab 04/09/18 Levetiracetam [Keppra] 500 mg PO BID #60 tablet 04/18/18 Amoxicillin/Clavulanate [Augmentin 1 tab PO Q12 #20 tab 04/28/18 875 MG-125 MG] Bacitracin [Bacitracin Opht OINT] 1 applic OU TID 14 Days tube 05/02/18 - Allergies Allergies/Adverse Reactions: Allergies Allergy/AdvReac Type Severity Reaction Status Date / Time aspirin AdvReac GI Bleed Verified 05/03/18 01:59 ibuprofen [From Motrin] AdvReac GI Bleed Verified 05/03/18 01:59 naproxen AdvReac GI bleed Verified 05/03/18 01:59 NSAIDS (Non-Steroidal AdvReac GI bleed Verified 05/03/18 01:59 Anti-Inflamma Review of Systems ROS Statement: Except As Marked, All Systems Reviewed And Found Negative Neurological: Positive for: Seizures Physical Exam - Reviewed Nursing Documentation Reviewed: Yes Vital Signs Reviewed: Yes - Physical Exam Appears: Positive for: Well, Non-toxic, No Acute Distress Head Exam: Positive for: ATRAUMATIC, NORMAL INSPECTION, NORMOCEPHALIC Skin: Positive for: Normal Color, Warm, DRY Eye Exam: Positive for: EOMI, Normal appearance, PERRL Cardiovascular/Chest: Positive for: Regular Rate, Rhythm. Negative for: Murmur, Bradycardia, Tachycardia Respiratory: Positive for: Normal Breath Sounds. Negative for: Respiratory Distress Back: Positive for: Normal Inspection Extremity: Positive for: Normal ROM. Negative for: Pedal Edema, Deformity Neurologic/Psych: Positive for: Alert, Oriented. Negative for: Motor/Sensory Deficits - ECG O2 Sat by Pulse Oximetry: 99 (RA) Pulse Ox Interpretation: Normal Medical Decision Making Medical Decision Making: Time: 17:50 Initial Impression: malingering Initial Plan: Patient ate 2 sandwiches and tolerated well. Patient was offered Keppra and accepted. 1815 - Pt sleeping comfortable in ER Scribe Attestation: Documented by Raghu Salazar, acting as a scribe for Ninoska Wells PA-C. Provider Scribe Attestation: All medical record entries made by the Scribe were at my direction and personally dictated by me. I have reviewed the chart and agree that the record accurately reflects my personal performance of the history, physical exam, medical decision making, and the department course for this patient. I have also personally directed, reviewed, and agree with the discharge instructions and disposition. Disposition - Clinical Impression Clinical Impression: Homelessness - Patient ED Disposition Is Patient to be Admitted: No - Disposition Disposition: Routine/Home Disposition Time: 18:47 Condition: STABLE Forms: [employer] ([place])
== END 2018-05-03 20:09 | disposition home or self-care (01) ==
LOC: H.ER 16:40
DX: Z59.0 Homelessness (principal)

== ENCOUNTER 2018-05-04 02:53 | Emergency (ER) | payer MEDICAID ==
[2018-05-04 02:53] VITALS: BMI 24.0
--- NOTE | 2018-05-04 03:47 | ED PDOC ---
HPI: Psych/Substance Abuse Time Seen by Provider: 05/04/18 03:06 Chief Complaint (Nursing): Alcohol Ingestion Chief Complaint (Provider): Alcohol Ingestion History Per: Patient History/Exam Limitations: no limitations Additional Complaint(s): 53 year old male who is well known to this ED for bed seeking behavior and this provider with a history of seizure disorder presents to the ED with intoxication. Patient stating "I want to sleep here for a couple of hours." Past Medical History Reviewed: Historical Data, Nursing Documentation, Vital Signs Vital Signs: Last Vital Signs Temp 98.9 F 05/04/18 02:56 Pulse 87 05/04/18 02:56 Resp BP 130/89 05/04/18 02:56 Pulse Ox 98 05/04/18 02:56 - Medical History PMH: Anemia, Anxiety, Back Problems (herniated disc), Deep Vein Thrombosis, Fractures, Gastritis, Gall Bladder Disease (Cholelithiasis), HTN, Pancreatitis, Pneumonia, Seizures, Chronic Pain (left shoulder) Denies: CHF, HIV, Hypercholesterolemia, Chronic Kidney Disease, Sexually Transmitted Disease - Surgical History Surgical History: Endoscopy - Family History Family History: States: Unknown Family Hx - Social History Alcohol: < 2 Drinks/Day - Immunization History Hx Tetanus Toxoid Vaccination: Yes Hx Influenza Vaccination: Yes Hx Pneumococcal Vaccination: Yes - Home Medications Home Medications: Ambulatory Orders Medication Instructions Recorded RX: Omeprazole 20 mg PO DAILY #30 capsule. 03/22/18 RX: Folic Acid 1 mg PO DAILY #30 tab 04/09/18 RX: Lactulose [Enulose] 10 gm PO BID #30 ml 04/09/18 RX: Thiamine [Vitamin B1 Tab] 100 mg PO DAILY #30 tab 04/09/18 Levetiracetam [Keppra] 500 mg PO BID #60 tablet 04/18/18 Amoxicillin/Clavulanate [Augmentin 1 tab PO Q12 #20 tab 04/28/18 875 MG-125 MG] Bacitracin [Bacitracin Opht OINT] 1 applic OU TID 14 Days tube 05/02/18 - Allergies Allergies/Adverse Reactions: Allergies Allergy/AdvReac Type Severity Reaction Status Date / Time aspirin AdvReac GI Bleed Verified 05/03/18 01:59 ibuprofen [From Motrin] AdvReac GI Bleed Verified 05/03/18 01:59 naproxen AdvReac GI bleed Verified 05/03/18 01:59 NSAIDS (Non-Steroidal AdvReac GI bleed Verified 05/03/18 01:59 Anti-Inflamma Review of Systems ROS Statement: Except As Marked, All Systems Reviewed And Found Negative Physical Exam - Reviewed Nursing Documentation Reviewed: Yes Vital Signs Reviewed: Yes - Physical Exam Head Exam: Positive for: ATRAUMATIC, NORMAL INSPECTION, NORMOCEPHALIC Skin: Positive for: Normal Color, Warm, DRY Eye Exam: Positive for: EOMI, Normal appearance, PERRL Cardiovascular/Chest: Positive for: Regular Rate, Rhythm. Negative for: Murmur Respiratory: Positive for: Normal Breath Sounds. Negative for: Respiratory Distress Extremity: Positive for: Normal ROM. Negative for: Deformity - ECG O2 Sat by Pulse Oximetry: 98 (RA) Pulse Ox Interpretation: Normal Medical Decision Making Medical Decision Making: Time: 347 Impression: 53 year old male with alcohol intoxication. [address] Huizar by Dr. Fernandez, pending sobriety. ----- Scribe Attestation: Documented by Ryan Frausto, acting as a scribe for Olaf Frenandez MD. Provider Scribe Attestation: All medical record entries made by the Scribe were at my direction and personally dictated by me. I have reviewed the chart and agree that the record accurately reflects my personal performance of the history, physical exam, medical decision making, and the department course for this patient. I have also personally directed, reviewed, and agree with the discharge instructions and disposition. Disposition - Clinical Impression Clinical Impression: Alcohol abuse - Disposition Disposition: Transfer of Care Disposition Time: 07:00 Condition: FAIR Instructions: Alcohol Abuse and Alcoholism (DC) Forms: [employer] (Arabic)
--- NOTE | 2018-05-04 07:44 | ED PDOC ---
HPI:STROKE - Time Time: 07:35 - Historian Historian: Family NIHSS Stroke Scale - How Severe is the Stroke Level of Consciousness: 3=Unresponsive LOC to Questions: 2=Neither correct LOC to commands: 2=Neither correct Best Gaze: 2=Forced deviation (RIGHT) Visual: 3=Bilateral Facial: 3=Complete unilateral paralysis (RIGHT) Motor Arm - Left: 4=No movement (Decorticate) Motor Arm - Right: 4=No movement (Decorticate) Motor Leg - Left: 4=No movement Motor Leg - Right: 4=No movement Limb Ataxia: 0=Absent Sensory: 0=Normal (Obtunded) Best Language: 3=Mute Dysarthia: 0=Normal articulation (obtunded) Extinction & Inattention (Neglect): 0=Normal, no object (obtunded) Score: 34 Past Medical History Vital Signs: Last Vital Signs Temp 37.2 C 05/04/18 02:56 Pulse 87 05/04/18 02:56 Resp BP 130/89 05/04/18 02:56 Pulse Ox 98 05/04/18 06:26 - Medical History PMH: Anemia, Anxiety, Back Problems (herniated disc), Deep Vein Thrombosis, Fractures, Gastritis, Gall Bladder Disease (Cholelithiasis), HTN, Pancreatitis, Pneumonia, Seizures, Chronic Pain (left shoulder) Denies: CHF, HIV, Hypercholesterolemia, Chronic Kidney Disease, Sexually Transmitted Disease - Surgical History Surgical History: Endoscopy - Family History Family History: States: Unknown Family Hx - Social History Alcohol: < 2 Drinks/Day - Immunization History Hx Tetanus Toxoid Vaccination: Yes Hx Influenza Vaccination: Yes Hx Pneumococcal Vaccination: Yes - Home Medications Home Medications: Ambulatory Orders Medication Instructions Recorded Omeprazole 20 mg PO DAILY #30 capsule. 03/22/18 Folic Acid 1 mg PO DAILY #30 tab 04/09/18 Lactulose [Enulose] 10 gm PO BID #30 ml 04/09/18 Thiamine [Vitamin B1 Tab] 100 mg PO DAILY #30 tab 04/09/18 Levetiracetam [Keppra] 500 mg PO BID #60 tablet 04/18/18 Amoxicillin/Clavulanate [Augmentin 1 tab PO Q12 #20 tab 04/28/18 875 MG-125 MG] Bacitracin [Bacitracin Opht OINT] 1 applic OU TID 14 Days tube 05/02/18 - Allergies Allergies/Adverse Reactions: Allergies Allergy/AdvReac Type Severity Reaction Status Date / Time aspirin AdvReac GI Bleed Verified 05/03/18 01:59 ibuprofen [From Motrin] AdvReac GI Bleed Verified 05/03/18 01:59 naproxen AdvReac GI bleed Verified 05/03/18 01:59 NSAIDS (Non-Steroidal AdvReac GI bleed Verified 05/03/18 01:59 Anti-Inflamma - ECG O2 Sat by Pulse Oximetry: 98 (RA) Disposition - Clinical Impression Clinical Impression: Alcohol abuse - Disposition Disposition: Transfer of Care Disposition Time: 07:00 Condition: FAIR Instructions: Alcohol Abuse and Alcoholism (DC) Forms: [employer] (Croatian)
[2018-05-04] MEDS ORDERED: Sodium Chloride 0.9% 1,000 ML IV SCH (07:45)
--- NOTE | 2018-05-04 07:55 | ED PDOC ---
- ECG O2 Sat by Pulse Oximetry: 98 (RA) Medical Decision Making Medical Decision Making: received patient from Dr. Fernandez, patient is pending sobriety Disposition Doctor Will See Patient In The: Office Counseled Patient/Family Regarding: Diagnosis, Need For Followup - Clinical Impression Clinical Impression: Alcohol abuse - POA Present On Arrival: None - Disposition Disposition: Routine/Home Disposition Time: 09:15 Condition: FAIR Instructions: Alcohol Abuse and Alcoholism (DC) Forms: [employer] (Grenadian)
[2018-05-04 08:24] VITALS: BP 95/51; PULSE 100; RESP 18; TEMP 98.4
[2018-05-04 14:38] VITALS: O2SAT 98
== END 2018-05-04 08:30 | disposition home or self-care (01) ==
LOC: H.ER 02:53
DX: F10.129 Alcohol abuse with intoxication, unspecified (principal); G40.909 Epilepsy, unspecified, not intractable, without status epilepticus

== ENCOUNTER 2018-05-04 14:07 | Emergency (ER) | payer MEDICAID ==
[2018-05-04 14:07] VITALS: BMI 24.0
[2018-05-04 14:23] VITALS: RESP 20
--- NOTE | 2018-05-04 14:51 | ED PDOC ---
HPI: Seizure Time Seen by Provider: 05/04/18 14:35 Chief Complaint (Nursing): Seizure Chief Complaint (Provider): Seizure History Per: Patient History/Exam Limitations: no limitations Recent Seizure Activity Began: Just Before Arrival Additional Complaint(s): 53 year old undomiciled male well known the ED for multiple, frequent visits presents for evaluation of a self-reported seizure just prior to arrival. Patient notes he did not take his Keppra dose today. Patient reports no other complaints at present. Denies headache, dizziness, extremity pain, abdominal pain, N/V/D, cough/SOB, chest pain, recent fever. PMD: none provided Past Medical History Reviewed: Historical Data, Nursing Documentation, Vital Signs Vital Signs: Last Vital Signs Temp 98.0 F 05/04/18 14:19 Pulse 102 H 05/04/18 14:19 Resp 20 05/04/18 14:19 BP 137/71 05/04/18 14:19 Pulse Ox 98 05/04/18 14:19 - Medical History PMH: Anemia, Anxiety, Back Problems (herniated disc), Deep Vein Thrombosis, Fractures, Gastritis, Gall Bladder Disease (Cholelithiasis), HTN, Pancreatitis, Pneumonia, Seizures, Chronic Pain (left shoulder) - Surgical History Surgical History: Endoscopy - Family History Family History: States: Unknown Family Hx - Social History Alcohol: Other (hx of abuse) - Home Medications Home Medications: Ambulatory Orders Medication Instructions Recorded RX: Omeprazole 20 mg PO DAILY #30 capsule 03/22/18 RX: Folic Acid 1 mg PO DAILY #30 tab 04/09/18 RX: Lactulose [Enulose] 10 gm PO BID #30 ml 04/09/18 RX: Thiamine [Vitamin B1 Tab] 100 mg PO DAILY #30 tab 04/09/18 Levetiracetam [Keppra] 500 mg PO BID #60 tablet 04/18/18 Amoxicillin/Clavulanate [Augmentin 1 tab PO Q12 #20 tab 04/28/18 875 MG-125 MG] Bacitracin [Bacitracin Opht OINT] 1 applic OU TID 14 Days tube 05/02/18 - Allergies Allergies/Adverse Reactions: Allergies Allergy/AdvReac Type Severity Reaction Status Date / Time aspirin AdvReac GI Bleed Verified 05/03/18 01:59 ibuprofen [From Motrin] AdvReac GI Bleed Verified 05/03/18 01:59 naproxen AdvReac GI bleed Verified 05/03/18 01:59 NSAIDS (Non-Steroidal AdvReac GI bleed Verified 05/03/18 01:59 Anti-Inflamma Review of Systems ROS Statement: Except As Marked, All Systems Reviewed And Found Negative Neurological: Positive for: Seizures Physical Exam - Reviewed Nursing Documentation Reviewed: Yes Vital Signs Reviewed: Yes - Physical Exam Comments: GENERAL APPEARANCE: Patient is awake, alert, oriented x 3, in no acute distress. SKIN: Warm, dry; (-) cyanosis. ENMT: Mucous membranes moist. Airway patent, (-) stridor. NECK: Supple, FROM CHEST AND RESPIRATORY: (-) rales, (-) rhonchi, (-) wheezes, (-) rub; breath sounds equal bilaterally. Respirations even and nonlabored. HEART AND CARDIOVASCULAR: (-) irregularity ABDOMEN AND GI: Soft; (-) distention, (-) tenderness, (-) palpable pulsatile mass. EXTREMITIES: (-) deformity NEURO AND PSYCH: Mental status as above. Cranial nerves grossly intact; strength symmetric. (-) facial asymmetry. - ECG O2 Sat by Pulse Oximetry: 98 (RA) Pulse Ox Interpretation: Normal Medical Decision Making Medical Decision Making: Initial Impression: possible seizure Time: 1438 Initial Plan: --Keppra 500mg PO --Accucheck Accucheck: 128 1500 Patient sleeping comfortably on re-evaluation. 1705 Repeat HR: 92 Patient able to tolerate PO intake in ED without difficulty. Patient requesting discharge stating "I feel fine now". On exam, patient remains AAOx3, in no acute distress. Lungs clear to auscultation, cardiac RRR, repeat neuro exam shows no focal findings. Gait steady in ED with walker. Vitals stable. Lab/Diagnostic results d/w the patient in great detail. Diagnosis of epilepsy d/w the patient. Based on history, exam and diagnostic results, plan will be for outpatient follow up. Patient was observed in the ED for 3+ hours with no evidence of neurological deterioration. Patient instructed to follow-up with pmd / referral provided / the clinic in 1- 2 days without fail. Return to the emergency room at any time for any new or worsening symptoms. Patient states he fully agrees with and understands discharge instructions. States that he agrees with the plan and disposition. Verbalized and repeated discharge instructions and plan. I have given the patient opportunity to ask any additional questions. ------- Scribe Attestation: Documented by Meryl Mahoney, acting as a scribe for Haydee Hayes PA-C. Provider Scribe Attestation: All medical record entries made by the Scribe were at my direction and personally dictated by me. I have reviewed the chart and agree that the record accurately reflects my personal performance of the history, physical exam, medical decision making, and the department course for this patient. I have also personally directed, reviewed, and agree with the discharge instructions and d isposition. Disposition - Clinical Impression Clinical Impression: Epilepsy - Patient ED Disposition Is Patient to be Admitted: No Counseled Patient/Family Regarding: Studies Performed, Diagnosis, Need For Followup - Disposition Referrals: [facility] [Outside] Disposition: Routine/Home Disposition Time: 17:15 Condition: STABLE Additional Instructions: The emergency medical care you received today was directed at your acute symptoms. If you were prescribed any medication, please fill it and take as directed. It may take several days for your symptoms to resolve. Return to the Emergency Department if your symptoms worsen, do not improve, or if you have any other problems. Please contact your doctor in 2 days for re-evaluation and follow up / or call one of the physicians/clinics you have been referred to that are listed on the Patient Visit Information form that is included in your discharge packet. Bring any paperwork you were given at discharge with you along with any medications you are taking to your follow up visit. Our treatment cannot replace ongoing medical care by a primary care provider (PCP) outside of the emergency department. Instructions: Epilepsy in Adults, Seizures, Adult (DC) Forms: [employer] (Iraqi) Print Language: NEPALI - POA Present On Arrival: None Results - Lab Results Lab Results: 05/04/18 15:29 POC Glucose (mg/dL) 128 H
[2018-05-04 17:14] VITALS: O2SAT 98
[2018-05-04 17:19] VITALS: BP 125/67; PULSE 92; TEMP 98.7
== END 2018-05-04 17:18 | disposition home or self-care (01) ==
LOC: H.ER 14:07 → SUPCPDRO 14:07 → H.ER 17:18
DX: G40.909 Epilepsy, unspecified, not intractable, without status epilepticus (principal)

== ENCOUNTER 2018-05-04 20:51 | Emergency (ER) | payer MEDICAID ==
[2018-05-04 20:51] VITALS: BMI 24.0
[2018-05-04 21:39] VITALS: TEMP 97.9
--- NOTE | 2018-05-05 01:49 | ED PDOC ---
HPI: Seizure Time Seen by Provider: 05/05/18 00:34 Chief Complaint (Nursing): Seizure Chief Complaint (Provider): seizure History Per: Patient History/Exam Limitations: no limitations Additional Complaint(s): 53 y/o male self-presents stating he had a unwitnessed seizure prior to arrival. Patient well known to ED with multiple visits for same. Requesting something to eat. Denies injury, headache, dizziness, nausea/vomiting, chest pain, shortness of breath, palpitations. Past Medical History Reviewed: Historical Data, Nursing Documentation, Vital Signs Vital Signs: Last Vital Signs Temp 97.9 F 05/04/18 21:31 Pulse 92 H 05/04/18 21:31 Resp BP 132/81 05/04/18 21:31 Pulse Ox 98 05/04/18 21:31 - Medical History PMH: Anemia, Anxiety, Back Problems (herniated disc), Deep Vein Thrombosis, Fractures, Gastritis, Gall Bladder Disease (Cholelithiasis), HTN, Pancreatitis, Pneumonia, Seizures, Chronic Pain (left shoulder) Denies: CHF, HIV, Hypercholesterolemia, Chronic Kidney Disease, Sexually Transmitted Disease - Surgical History Surgical History: Endoscopy - Family History Family History: States: Unknown Family Hx - Immunization History Hx Tetanus Toxoid Vaccination: Yes Hx Influenza Vaccination: Yes Hx Pneumococcal Vaccination: Yes - Home Medications Home Medications: Ambulatory Orders Medication Instructions Recorded Omeprazole 20 mg PO DAILY #30 capsule. 03/22/18 Folic Acid 1 mg PO DAILY #30 tab 04/09/18 Lactulose [Enulose] 10 gm PO BID #30 ml 04/09/18 Thiamine [Vitamin B1 Tab] 100 mg PO DAILY #30 tab 04/09/18 Levetiracetam [Keppra] 500 mg PO BID #60 tablet 04/18/18 Amoxicillin/Clavulanate [Augmentin 1 tab PO Q12 #20 tab 04/28/18 875 MG-125 MG] Bacitracin [Bacitracin Opht OINT] 1 applic OU TID 14 Days tube 05/02/18 - Allergies Allergies/Adverse Reactions: Allergies Allergy/AdvReac Type Severity Reaction Status Date / Time aspirin AdvReac GI Bleed Verified 05/06/18 01:03 ibuprofen [From Motrin] AdvReac GI Bleed Verified 05/06/18 01:03 naproxen AdvReac GI bleed Verified 05/06/18 01:03 NSAIDS (Non-Steroidal AdvReac GI bleed Verified 05/06/18 01:03 Anti-Inflamma Review of Systems ROS Statement: Except As Marked, All Systems Reviewed And Found Negative Neurological: Positive for: Seizures Physical Exam - Reviewed Nursing Documentation Reviewed: Yes Vital Signs Reviewed: Yes - Physical Exam Appears: Positive for: Well, Non-toxic, No Acute Distress Head Exam: Positive for: ATRAUMATIC, NORMAL INSPECTION, NORMOCEPHALIC Skin: Positive for: Normal Color Eye Exam: Positive for: Normal appearance ENT: Positive for: Normal ENT Inspection Cardiovascular/Chest: Positive for: Regular Rate, Rhythm Respiratory: Positive for: Normal Breath Sounds Gastrointestinal/Abdominal: Positive for: Normal Exam Back: Positive for: Normal Inspection Extremity: Positive for: Normal ROM Neurologic/Psych: Positive for: Alert, Oriented (x3) - ECG O2 Sat by Pulse Oximetry: 98 - Progress ED Course And Treament: Patient given sandwich and juice Patient AAOx3. Ambulating baseline Patient requires no further intervention in the ED and is stable for discharge at this time Disposition - Clinical Impression Clinical Impression: Seizure disorder - Patient ED Disposition Is Patient to be Admitted: No Counseled Patient/Family Regarding: Diagnosis, Need For Followup - Disposition Disposition: Routine/Home Disposition Time: 05:00 Condition: IMPROVED Instructions: Epilepsy in Adults
[2018-05-05 07:07] VITALS: BP 127/87; PULSE 89; RESP 16
[2018-05-06 03:42] VITALS: O2SAT 98
== END 2018-05-05 06:30 | disposition home or self-care (01) ==
LOC: H.ER 20:51
DX: G40.909 Epilepsy, unspecified, not intractable, without status epilepticus (principal)

== ENCOUNTER 2018-05-05 12:41 | Emergency (ER) | payer MEDICAID ==
[2018-05-05 12:41] VITALS: BMI 24.0
[2018-05-05 12:47] VITALS: RESP 16; TEMP 98.1; O2SAT 97
--- NOTE | 2018-05-05 13:13 | ED PDOC ---
HPI: General Adult Time Seen by Provider: 05/05/18 12:52 Chief Complaint (Nursing): Medical Clearance Chief Complaint (Provider): Fatigue History Per: Patient, EMS History/Exam Limitations: no limitations Onset/Duration Of Symptoms: Days (x2) Current Symptoms Are (Timing): Still Present Additional Complaint(s): 53 year old undomiciled male well known to the ED for daily frequent visits presents today for evaluation of feeling tired x2 days. He reports not being able to take his Keppra dose today and is requesting a dose here, along with a food tray. Of note, patient was discharged this morning at 0700 and was seen yesterday three times for similar complaints. Denies fever/chills. Took no medications [employer]. PMD: none provided Past Medical History Reviewed: Historical Data, Nursing Documentation, Vital Signs Vital Signs: Last Vital Signs Temp 98.1 F 05/05/18 12:45 Pulse 81 05/05/18 12:45 Resp 16 05/05/18 12:45 BP 116/73 05/05/18 12:45 Pulse Ox 97 05/05/18 12:45 - Medical History PMH: Anemia, Anxiety, Back Problems (herniated disc), Deep Vein Thrombosis, Fractures, Gastritis, Gall Bladder Disease (Cholelithiasis), HTN, Pancreatitis, Pneumonia, Seizures, Chronic Pain (left shoulder) - Surgical History Surgical History: Endoscopy - Family History Family History: States: Unknown Family Hx - Living Arrangements Living Arrangements: Other (homeless) - Social History Alcohol: Other (hx of abuse) - Home Medications Home Medications: Ambulatory Orders Medication Instructions Recorded RX: Omeprazole 20 mg PO DAILY #30 capsule 03/22/18 RX: Folic Acid 1 mg PO DAILY #30 tab 04/09/18 RX: Lactulose [Enulose] 10 gm PO BID #30 ml 04/09/18 RX: Thiamine [Vitamin B1 Tab] 100 mg PO DAILY #30 tab 04/09/18 Levetiracetam [Keppra] 500 mg PO BID #60 tablet 04/18/18 Amoxicillin/Clavulanate [Augmentin 1 tab PO Q12 #20 tab 04/28/18 875 MG-125 MG] Bacitracin [Bacitracin Opht OINT] 1 applic OU TID 14 Days tube 05/02/18 - Allergies Allergies/Adverse Reactions: Allergies Allergy/AdvReac Type Severity Reaction Status Date / Time aspirin AdvReac GI Bleed Verified 05/05/18 12:45 ibuprofen [From Motrin] AdvReac GI Bleed Verified 05/05/18 12:45 naproxen AdvReac GI bleed Verified 05/05/18 12:45 NSAIDS (Non-Steroidal AdvReac GI bleed Verified 05/05/18 12:45 Anti-Inflamma Review of Systems ROS Statement: Except As Marked, All Systems Reviewed And Found Negative Constitutional: Positive for: Weakness, Other (feeling tired) Physical Exam - Reviewed Nursing Documentation Reviewed: Yes Vital Signs Reviewed: Yes - Physical Exam Comments: GENERALIZED APPEARANCE: Patient is awake, alert, oriented x3 in no acute distress. Resting comfortably. SKIN: Warm, dry; (-) cyanosis. NECK: Supple, FROM ENT: Mucus membranes moist. Airway patent, (-) stridor. CHEST AND RESPIRATORY: (-) rales, (-) rhonchi, (-) wheezes; breath sounds equal bilaterally. Respirations even and nonlabored. HEART AND CARDIOVASCULAR: (-) irregularity ABDOMEN AND GI: Soft; (-) distention, (-) tenderness, (-) rebound, (-) guarding EXTREMITIES: (-) deformity; (-) edema. NEURO AND PSYCH: Mental status as above. Pupils equal and reactive. EOMI, (-) facial asymmetry. Gait: steady with walker. - ECG O2 Sat by Pulse Oximetry: 97 (RA) Pulse Ox Interpretation: Normal Medical Decision Making Medical Decision Making: Initial Impression: fatigue, malingering Time: 1300 Initial Plan: --Alcohol serum --Keppra 500mg PO --Accucheck 1410 Serum alcohol: 194 Accucheck: 102 1500 Patient ambulating around ED requesting tea and crackers. 1530 Patient tolerating PO intake. Resting comfortably in no acute distress. 1605 Patient requesting discharge at this time. Unwilling to wait for paperwork. Patient ambulated from ED room with walker without difficulty and exited ED without further incident. Based on history, exam and diagnostic results, plan will be for outpatient follow up. Patient instructed to follow-up with pmd / referral provided / the clinic in 1- 2 days without fail. Return to the emergency room at any time for any new or worsening symptoms. Patient states he fully agrees with and understands discharge instructions. States that he agrees with the plan and disposition. Verbalized and repeated discharge instructions and plan. I have given the patient opportunity to ask any additional questions. Scribe Attestation: Documented by Meryl Mahoney, acting as a scribe for Haydee Hayes PA-C. Provider Scribe Attestation: All medical record entries made by the Scribe were at my direction and personally dictated by me. I have reviewed the chart and agree that the record accurately reflects my personal performance of the history, physical exam, medical decision making, and the department course for this patient. I have also personally directed, reviewed, and agree with the discharge instructions and disposition. Disposition - Clinical Impression Clinical Impression: Fatigue, Malingering - Patient ED Disposition Is Patient to be Admitted: No Counseled Patient/Family Regarding: Studies Performed, Diagnosis, Need For Followup - Disposition Referrals: [facility] [Outside] Disposition: Routine/Home Disposition Time: 16:05 Condition: STABLE Additional Instructions: The emergency medical care you received today was directed at your acute symptoms. If you were prescribed any medication, please fill it and take as directed. It may take several days for your symptoms to resolve. Return to the Emergency Department if your symptoms worsen, do not improve, or if you have any other problems. Please contact your doctor in 2 days for re-evaluation and follow up / or call one of the physicians/clinics you have been referred to that are listed on the Patient Visit Information form that is included in your discharge packet. Bring any paperwork you were given at discharge with you along with any medications you are taking to your follow up visit. Our treatment cannot replace ongoing medical care by a primary care provider (PCP) outside of the emergency department. Instructions: Fatigue, General (DC) Forms: [employer] (Cypriot) Print Language: BHUTANESE - POA Present On Arrival: None Results - Lab Results Lab Results: 05/05/18 13:50 Alcohol, Quantitative 194 H
[2018-05-05 16:49] VITALS: BP 118/78; PULSE 80
== END 2018-05-05 16:30 | disposition home or self-care (01) ==
LOC: H.ER 12:41
DX: Z76.5 Malingerer [conscious simulation] (principal); R53.83 Other fatigue

== ENCOUNTER 2018-05-06 00:33 | Emergency (ER) | payer MEDICAID ==
[2018-05-06 00:33] VITALS: BMI 24.0
[2018-05-06 01:09] VITALS: TEMP 97.8; O2SAT 98
--- NOTE | 2018-05-06 01:46 | ED PDOC ---
HPI: Seizure Time Seen by Provider: 05/06/18 00:40 Chief Complaint (Nursing): Seizure Chief Complaint (Provider): Seizure History Per: Patient History/Exam Limitations: no limitations Recent Seizure Activity Began: Just Before Arrival Additional Complaint(s): 53 years old male, well known for multiple visits to ER, presents for evaluation of unwitnessed seizure here in the ER as he was sitting in the waiting room. however witnesses said that he did not have seizure at all. Patient is requesting to sleep at this time. PMD: non provided Past Medical History Reviewed: Historical Data, Nursing Documentation, Vital Signs Vital Signs: Last Vital Signs Temp 97.8 F 05/06/18 01:04 Pulse 96 H 05/06/18 01:04 Resp 18 05/06/18 01:04 BP 153/71 H 05/06/18 01:04 Pulse Ox 98 05/06/18 01:04 - Medical History PMH: Anemia, Anxiety, Back Problems (herniated disc), Deep Vein Thrombosis, Fractures, Gastritis, Gall Bladder Disease (Cholelithiasis), HTN, Pancreatitis, Pneumonia, Seizures, Chronic Pain (left shoulder) Denies: CHF, HIV, Hypercholesterolemia, Chronic Kidney Disease, Sexually Transmitted Disease - Surgical History Surgical History: Endoscopy - Family History Family History: States: Unknown Family Hx - Social History Current smoker - smoking cessation education provided: Yes Alcohol: > 2 Drinks/Day - Immunization History Hx Tetanus Toxoid Vaccination: Yes Hx Influenza Vaccination: Yes Hx Pneumococcal Vaccination: Yes - Home Medications Home Medications: Ambulatory Orders Medication Instructions Recorded RX: Lactulose [Enulose] 10 gm PO BID #30 ml 04/09/18 RX: Amoxicillin/Clavulanate 1 tab PO Q12 #20 tab 04/28/18 [Augmentin 875 MG-125 MG Tab] RX: Bacitracin [Bacitracin Opht 1 applic OU TID 14 Days tube 05/02/18 OINT] RX: Folic Acid 1 mg PO DAILY #30 tab 05/10/18 RX: Lactulose [Enulose] 20 gm PO QID udc 05/10/18 RX: Levetiracetam [Keppra] 500 mg PO BID #60 tablet 05/10/18 RX: Omeprazole 40 mg PO BID 30 Days #60 capsule. 05/10/18 RX: Thiamine [Vitamin B1 Tab] 100 mg PO DAILY #30 tab 05/10/18 - Allergies Allergies/Adverse Reactions: Allergies Allergy/AdvReac Type Severity Reaction Status Date / Time aspirin AdvReac GI Bleed Verified 05/07/18 20:35 ibuprofen [From Motrin] AdvReac GI Bleed Verified 05/07/18 20:35 naproxen AdvReac GI bleed Verified 05/07/18 20:35 NSAIDS (Non-Steroidal AdvReac GI bleed Verified 05/07/18 20:35 Anti-Inflamma Review of Systems ROS Statement: Except As Marked, All Systems Reviewed And Found Negative Neurological: Positive for: Seizures Physical Exam - Reviewed Nursing Documentation Reviewed: Yes Vital Signs Reviewed: Yes - Physical Exam Appears: Positive for: Non-toxic, No Acute Distress Head Exam: Positive for: ATRAUMATIC, NORMOCEPHALIC Skin: Positive for: Normal Color, Warm, Dry Eye Exam: Positive for: Normal appearance, EOMI, PERRL ENT: Positive for: Normal ENT Inspection Neck: Positive for: Normal Cardiovascular/Chest: Positive for: Regular Rate, Rhythm. Negative for: Murmur Respiratory: Positive for: Normal Breath Sounds. Negative for: Wheezing Gastrointestinal/Abdominal: Positive for: Normal Exam, Soft. Negative for: Tenderness Extremity: Positive for: Normal ROM. Negative for: Tenderness, Swelling Neurologic/Psych: Positive for: Alert, Oriented (x3) - ECG O2 Sat by Pulse Oximetry: 98 (RA) Pulse Ox Interpretation: Normal Medical Decision Making Medical Decision Making: pt requesting to sleep in the ER. pt is undomiciled. pt rested in the emergency department stable gait, stable for dc. Scribe Attestation: Documented by Lucina Walton, acting as a scribe for Amanda Washington MD. Provider Scribe Attestation: All medical record entries made by the Scribe were at my direction and personally dictated by me. I have reviewed the chart and agree that the record accurately reflects my personal performance of the history, physical exam, medical decision making, and the department course for this patient. I have also personally directed, reviewed, and agree with the discharge instructions and disposition. Disposition - Clinical Impression Clinical Impression: Drug-induced seizure - Patient ED Disposition Is Patient to be Admitted: No Counseled Patient/Family Regarding: Studies Performed, Diagnosis, Need For Followup - Disposition Disposition: Routine/Home Condition: IMPROVED Additional Instructions: follow up as an outpatient return to the ED with any worsening or concerning symptoms Instructions: Seizures, Adult (DC) Forms: [employer] (British)
[2018-05-06 07:57] VITALS: BP 127/83; PULSE 86; RESP 17
== END 2018-05-06 07:00 | disposition home or self-care (01) ==
LOC: H.ER 00:33
DX: R56.9 Unspecified convulsions (principal); F17.200 Nicotine dependence, unspecified, uncomplicated; G89.29 Other chronic pain; I10 Essential (primary) hypertension; Z79.899 Other long term (current) drug therapy; Z86.718 Personal history of other venous thrombosis and embolism; Z88.6 Allergy status to analgesic agent

== ENCOUNTER 2018-05-06 07:48 | Emergency (ER) | payer MEDICAID ==
[2018-05-06 07:49] VITALS: BMI 24.0
--- NOTE | 2018-05-06 10:18 | ED PDOC ---
HPI: Seizure Time Seen by Provider: 05/06/18 09:20 Chief Complaint (Nursing): Seizure Chief Complaint (Provider): seizure History Per: Patient Recent Seizure Activity Began: Unknown (Pt. is well known to this ED, h/o etoh abuse, seizure who is noncompliant with keppra. Pt. reports he may have had a seizure just well logging [employer] while sitting at [employer]. Pt. now reports feeling well, denies falling, denies head injury. As per ED staff, pt. was discharged from ED earlier this am, had been waiting room after d/c and when asked to leave pt. checked back in. ) Past Medical History Vital Signs: Last Vital Signs Temp 98.3 F 05/06/18 07:56 Pulse 107 H 05/06/18 07:56 Resp 17 05/06/18 07:56 BP 131/60 05/06/18 07:56 Pulse Ox 98 05/06/18 07:56 - Medical History PMH: Anemia, Anxiety, Back Problems (herniated disc), Deep Vein Thrombosis, Fractures, Gastritis, Gall Bladder Disease (Cholelithiasis), HTN, Pancreatitis, Pneumonia, Seizures, Chronic Pain (left shoulder) Denies: CHF, HIV, Hypercholesterolemia, Chronic Kidney Disease, Sexually Transmitted Disease - Surgical History Surgical History: Endoscopy - Family History Family History: States: Unknown Family Hx - Immunization History Hx Tetanus Toxoid Vaccination: Yes Hx Influenza Vaccination: Yes Hx Pneumococcal Vaccination: Yes - Home Medications Home Medications: Ambulatory Orders Medication Instructions Recorded Omeprazole 20 mg PO DAILY #30 capsule. 03/22/18 Folic Acid 1 mg PO DAILY #30 tab 04/09/18 Lactulose [Enulose] 10 gm PO BID #30 ml 04/09/18 Thiamine [Vitamin B1 Tab] 100 mg PO DAILY #30 tab 04/09/18 Levetiracetam [Keppra] 500 mg PO BID #60 tablet 04/18/18 Amoxicillin/Clavulanate [Augmentin 1 tab PO Q12 #20 tab 04/28/18 875 MG-125 MG] Bacitracin [Bacitracin Opht OINT] 1 applic OU TID 14 Days tube 05/02/18 - Allergies Allergies/Adverse Reactions: Allergies Allergy/AdvReac Type Severity Reaction Status Date / Time aspirin AdvReac GI Bleed Verified 05/06/18 09:00 ibuprofen [From Motrin] AdvReac GI Bleed Verified 05/06/18 09:00 naproxen AdvReac GI bleed Verified 05/06/18 09:00 NSAIDS (Non-Steroidal AdvReac GI bleed Verified 05/06/18 09:00 Anti-Inflamma Physical Exam - Reviewed Nursing Documentation Reviewed: Yes Vital Signs Reviewed: Yes - Physical Exam Appears: Positive for: Well Head Exam: Positive for: ATRAUMATIC Skin: Positive for: Normal Color - ECG O2 Sat by Pulse Oximetry: 98 Pulse Ox Interpretation: Normal Medical Decision Making Medical Decision Making: Pt. is sleeping comfortably, easily arousable. Pt. observed x 2 hrs, no seizure activity, no complaint. repeat hr 100. Pt. tolerated po. Pt. ambulating around ED, steady gait. Disposition - Clinical Impression Clinical Impression: Malingering, Seizure - Patient ED Disposition Is Patient to be Admitted: No Counseled Patient/Family Regarding: Diagnosis, Need For Followup - Disposition Disposition: Routine/Home Disposition Time: 11:34 Condition: IMPROVED Instructions: Seizures, Adult (DC) Forms: [employer] (Malawian)
[2018-05-06 12:44] VITALS: BP 134/68; PULSE 88; RESP 16; TEMP 98.4; O2SAT 97
== END 2018-05-06 12:43 | disposition home or self-care (01) ==
LOC: H.ER 07:48
DX: R56.9 Unspecified convulsions (principal); Z76.5 Malingerer [conscious simulation]; G89.29 Other chronic pain; I10 Essential (primary) hypertension; Z86.718 Personal history of other venous thrombosis and embolism; Z91.14 Patient's other noncompliance with medication regimen; Z88.6 Allergy status to analgesic agent

== ENCOUNTER 2018-05-06 19:23 | Emergency (ER) | payer MEDICAID ==
[2018-05-06 19:23] VITALS: BMI 24.0
--- NOTE | 2018-05-06 19:36 | ED PDOC ---
HPI: Trauma/Fall - HPI Time Seen by Provider: 05/06/18 19:33 Chief Complaint (Nursing): Trauma Chief Complaint (Provider): Neck pain History Per: Patient Additional Complaint(s): 53 years old male, well known to provided for multiple visits to ER, presents for evaluation of unwitnessed seizure here in the ER as he was sitting in the waiting room. Patient is requesting a Keppra tab at this time, and a sandwich Past Medical History Reviewed: Historical Data, Nursing Documentation, Vital Signs Vital Signs: Last Vital Signs Temp 97.8 F 05/06/18 19:25 Pulse 107 H 05/06/18 19:25 Resp 18 05/06/18 19:25 BP 127/82 05/06/18 19:25 Pulse Ox 99 05/06/18 19:25 - Medical History PMH: Anemia, Anxiety, Back Problems (herniated disc), Deep Vein Thrombosis, Fractures, Gastritis, Gall Bladder Disease (Cholelithiasis), HTN, Pancreatitis, Pneumonia, Seizures, Chronic Pain (left shoulder) Denies: CHF, HIV, Hypercholesterolemia, Chronic Kidney Disease, Sexually Transmitted Disease - Surgical History Surgical History: Endoscopy - Family History Family History: States: Unknown Family Hx - Living Arrangements Living Arrangements: Other - Social History Alcohol: > 2 Drinks/Day - Immunization History Hx Tetanus Toxoid Vaccination: Yes Hx Influenza Vaccination: Yes Hx Pneumococcal Vaccination: Yes - Home Medications Home Medications: Ambulatory Orders Medication Instructions Recorded Omeprazole 20 mg PO DAILY #30 capsule. 03/22/18 Folic Acid 1 mg PO DAILY #30 tab 04/09/18 Lactulose [Enulose] 10 gm PO BID #30 ml 04/09/18 Thiamine [Vitamin B1 Tab] 100 mg PO DAILY #30 tab 04/09/18 Levetiracetam [Keppra] 500 mg PO BID #60 tablet 04/18/18 Amoxicillin/Clavulanate [Augmentin 1 tab PO Q12 #20 tab 04/28/18 875 MG-125 MG] Bacitracin [Bacitracin Opht OINT] 1 applic OU TID 14 Days tube 05/02/18 - Allergies Allergies/Adverse Reactions: Allergies Allergy/AdvReac Type Severity Reaction Status Date / Time aspirin AdvReac GI Bleed Verified 05/06/18 09:00 ibuprofen [From Motrin] AdvReac GI Bleed Verified 05/06/18 09:00 naproxen AdvReac GI bleed Verified 05/06/18 09:00 NSAIDS (Non-Steroidal AdvReac GI bleed Verified 05/06/18 09:00 Anti-Inflamma Review of Systems ROS Statement: Except As Marked, All Systems Reviewed And Found Negative Physical Exam - Reviewed Nursing Documentation Reviewed: Yes Vital Signs Reviewed: Yes - Physical Exam Appears: Positive for: Well, Non-toxic, No Acute Distress Head Exam: Positive for: ATRAUMATIC, NORMAL INSPECTION, NORMOCEPHALIC Skin: Positive for: Normal Color, Warm, DRY Eye Exam: Positive for: EOMI, Normal appearance, PERRL ENT: Positive for: Normal ENT Inspection Neck: Positive for: Normal, Painless ROM Cardiovascular/Chest: Positive for: Regular Rate, Rhythm Respiratory: Positive for: CNT, Normal Breath Sounds Gastrointestinal/Abdominal: Positive for: Normal Exam, Soft Back: Positive for: Normal Inspection Extremity: Positive for: Normal ROM Neurologic/Psych: Positive for: Alert, Oriented - ECG O2 Sat by Pulse Oximetry: 99 Medical Decision Making Medical Decision Making: Medicated with Keppra 500 mg tab PO Given food tray which Pt tolerated without difficulty. Pt slept in ED, 2300, woken up and made to ambulate around ED Pt with steady gait. stable for discharge at this time Disposition - Clinical Impression Clinical Impression: Seizure disorder - Patient ED Disposition Is Patient to be Admitted: No - Disposition Disposition: Routine/Home Disposition Time: 22:51 Condition: STABLE Instructions: Seizures, Adult (DC) Forms: [employer] (Nepali)
[2018-05-07 00:18] VITALS: RESP 16
[2018-05-07 01:54] VITALS: BP 132/80; PULSE 82; TEMP 97.9; O2SAT 98
== END 2018-05-07 01:54 | disposition home or self-care (01) ==
LOC: H.ER 19:23
DX: G40.909 Epilepsy, unspecified, not intractable, without status epilepticus (principal); G89.29 Other chronic pain; I10 Essential (primary) hypertension; Z86.718 Personal history of other venous thrombosis and embolism; Z88.6 Allergy status to analgesic agent

== ENCOUNTER 2018-05-07 07:55 | Emergency (ER) | payer MEDICAID ==
[2018-05-07 07:55] VITALS: BMI 24.0
[2018-05-07 08:19] VITALS: BP 145/66; PULSE 88; RESP 18; TEMP 98.1
--- NOTE | 2018-05-07 09:43 | ED PDOC ---
HPI: Seizure Time Seen by Provider: 05/07/18 08:39 Chief Complaint (Nursing): Seizure History Per: Patient History/Exam Limitations: no limitations Number Of Seizures: One Length Of Seizures (Duration): Seconds Quality Of Seizure: Generalized Precipitating Factor(s): Missed Dose Of Anti-seizure Medication Associated Symptoms: denies: Injury As A Result Of Seizure Activity Post-ictal Period: No Severity: Mild Past Medical History Reviewed: Historical Data, Nursing Documentation, Vital Signs Vital Signs: Last Vital Signs Temp 98.1 F 05/07/18 08:15 Pulse 88 05/07/18 08:15 Resp 18 05/07/18 08:15 BP 145/66 05/07/18 08:15 Pulse Ox 98 05/07/18 08:15 - Medical History PMH: Anemia, Anxiety, Back Problems (herniated disc), Deep Vein Thrombosis, Fractures, Gastritis, Gall Bladder Disease (Cholelithiasis), HTN, Pancreatitis, Pneumonia, Seizures, Chronic Pain (left shoulder) Denies: CHF, HIV, Hypercholesterolemia, Chronic Kidney Disease, Sexually Transmitted Disease - Surgical History Surgical History: Endoscopy - Family History Family History: States: Unknown Family Hx - Immunization History Hx Tetanus Toxoid Vaccination: Yes Hx Influenza Vaccination: Yes Hx Pneumococcal Vaccination: Yes - Home Medications Home Medications: Ambulatory Orders Medication Instructions Recorded RX: Omeprazole 20 mg PO DAILY #30 capsule. 03/22/18 RX: Folic Acid 1 mg PO DAILY #30 tab 04/09/18 RX: Lactulose [Enulose] 10 gm PO BID #30 ml 04/09/18 RX: Thiamine [Vitamin B1 Tab] 100 mg PO DAILY #30 tab 04/09/18 Levetiracetam [Keppra] 500 mg PO BID #60 tablet 04/18/18 Amoxicillin/Clavulanate [Augmentin 1 tab PO Q12 #20 tab 04/28/18 875 MG-125 MG] Bacitracin [Bacitracin Opht OINT] 1 applic OU TID 14 Days tube 05/02/18 - Allergies Allergies/Adverse Reactions: Allergies Allergy/AdvReac Type Severity Reaction Status Date / Time aspirin AdvReac GI Bleed Verified 05/06/18 09:00 ibuprofen [From Motrin] AdvReac GI Bleed Verified 05/06/18 09:00 naproxen AdvReac GI bleed Verified 05/06/18 09:00 NSAIDS (Non-Steroidal AdvReac GI bleed Verified 05/06/18 09:00 Anti-Inflamma Review of Systems ROS Statement: Except As Marked, All Systems Reviewed And Found Negative Musculoskeletal: Positive for: Shoulder Pain (chronic) Physical Exam - Reviewed Nursing Documentation Reviewed: Yes Vital Signs Reviewed: Yes - Physical Exam Appears: Positive for: Non-toxic, No Acute Distress Head Exam: Positive for: ATRAUMATIC, NORMAL INSPECTION Skin: Positive for: Warm, Dry Eye Exam: Positive for: EOMI Cardiovascular/Chest: Positive for: Regular Rate, Rhythm Extremity: Positive for: Normal ROM Neurologic/Psych: Positive for: Alert, Oriented, Gait (steady) - ECG O2 Sat by Pulse Oximetry: 98 Medical Decision Making Medical Decision Making: Impression recurrent seizures, chronic shoulder pain Diff include malingering Plan Keppra tylenol Disposition - Clinical Impression Clinical Impression: Seizure disorder, Shoulder pain - Patient ED Disposition Is Patient to be Admitted: No Doctor Will See Patient In The: Office Counseled Patient/Family Regarding: Studies Performed, Diagnosis, Need For Followup - Disposition Referrals: [facility] [Outside] Disposition: Routine/Home Disposition Time: 10:00 Condition: GOOD Instructions: Seizures, Adult (DC)
[2018-05-07 11:35] VITALS: O2SAT 98
== END 2018-05-07 11:19 | disposition home or self-care (01) ==
LOC: H.ER 07:55
DX: G40.909 Epilepsy, unspecified, not intractable, without status epilepticus (principal); M25.519 Pain in unspecified shoulder; G89.29 Other chronic pain; I10 Essential (primary) hypertension; Z88.6 Allergy status to analgesic agent; Z86.718 Personal history of other venous thrombosis and embolism

== ENCOUNTER 2018-05-07 16:38 | Emergency (ER) | payer MEDICAID ==
[2018-05-07 16:38] VITALS: BMI 24.0
[2018-05-07 16:53] VITALS: BP 134/80; TEMP 98.4
--- NOTE | 2018-05-07 17:14 | ED PDOC ---
HPI: Seizure Time Seen by Provider: 05/07/18 16:46 Chief Complaint (Nursing): Seizure Chief Complaint (Provider): Seizure History Per: Patient History/Exam Limitations: no limitations Additional Complaint(s): Shreyas Sepulveda is a 53 year old male, with a past medical history of seizure, who presents to the emergency department stating he had a seizure today. Patient states he took his medication this morning but is due for a 2nd dose. Patient is well known to ED for multiple visits with similar complaints and bed seeking behavior. He denies any other medical complaints. PMD: None provided. Past Medical History Reviewed: Historical Data, Nursing Documentation, Vital Signs Vital Signs: Last Vital Signs Temp 98.4 F 05/07/18 16:52 Pulse 110 H 05/07/18 16:52 Resp 20 05/07/18 16:52 BP 134/80 05/07/18 16:52 Pulse Ox 98 05/07/18 16:52 - Medical History PMH: Anemia, Anxiety, Back Problems (herniated disc), Deep Vein Thrombosis, Fractures, Gastritis, Gall Bladder Disease (Cholelithiasis), HTN, Pancreatitis, Pneumonia, Seizures, Chronic Pain (left shoulder) Denies: CHF, HIV, Hypercholesterolemia, Chronic Kidney Disease, Sexually Transmitted Disease - Surgical History Surgical History: Endoscopy - Family History Family History: States: Unknown Family Hx - Immunization History Hx Tetanus Toxoid Vaccination: Yes Hx Influenza Vaccination: Yes Hx Pneumococcal Vaccination: Yes - Home Medications Home Medications: Ambulatory Orders Medication Instructions Recorded Omeprazole 20 mg PO DAILY #30 capsule. 03/22/18 Folic Acid 1 mg PO DAILY #30 tab 04/09/18 Lactulose [Enulose] 10 gm PO BID #30 ml 04/09/18 Thiamine [Vitamin B1 Tab] 100 mg PO DAILY #30 tab 04/09/18 Levetiracetam [Keppra] 500 mg PO BID #60 tablet 04/18/18 Amoxicillin/Clavulanate [Augmentin 1 tab PO Q12 #20 tab 04/28/18 875 MG-125 MG] Bacitracin [Bacitracin Opht OINT] 1 applic OU TID 14 Days tube 05/02/18 - Allergies Allergies/Adverse Reactions: Allergies Allergy/AdvReac Type Severity Reaction Status Date / Time aspirin AdvReac GI Bleed Verified 05/07/18 16:52 ibuprofen [From Motrin] AdvReac GI Bleed Verified 05/07/18 16:52 naproxen AdvReac GI bleed Verified 05/07/18 16:52 NSAIDS (Non-Steroidal AdvReac GI bleed Verified 05/07/18 16:52 Anti-Inflamma Review of Systems ROS Statement: Except As Marked, All Systems Reviewed And Found Negative Neurological: Positive for: Seizures Physical Exam - Reviewed Nursing Documentation Reviewed: Yes Vital Signs Reviewed: Yes - Physical Exam Appears: Positive for: No Acute Distress Head Exam: Positive for: ATRAUMATIC, NORMAL INSPECTION, NORMOCEPHALIC Skin: Positive for: Normal Color, Warm, Dry Eye Exam: Positive for: Normal appearance, EOMI, PERRL Neck: Positive for: Normal, Painless ROM Cardiovascular/Chest: Positive for: Regular Rate, Rhythm. Negative for: Murmur Respiratory: Positive for: Normal Breath Sounds. Negative for: Respiratory Distress Gastrointestinal/Abdominal: Positive for: Normal Exam, Soft. Negative for: Tenderness Extremity: Positive for: Normal ROM (upper and lower extremities). Negative for: Deformity, Swelling Neurologic/Psych: Positive for: Alert, Oriented. Negative for: Motor/Sensory Deficits - ECG O2 Sat by Pulse Oximetry: 98 (RA) Pulse Ox Interpretation: Normal Medical Decision Making Medical Decision Making: Time: 16:46 Initial Impression: seizure Initial Plan: --Keppra 500 mg PO --Reevaluation Scribe Attestation: Documented by Giovany Puri, acting as a scribe for Ceci Rangel PA-C Provider Scribe Attestation: All medical record entries made by the Scribe were at my direction and personally dictated by me. I have reviewed the chart and agree that the record accurately reflects my personal performance of the history, physical exam, medical decision making, and the department course for this patient. I have also personally directed, reviewed, and agree with the discharge instructions and disposition. Disposition - Clinical Impression Clinical Impression: Seizure disorder - Patient ED Disposition Is Patient to be Admitted: No - Disposition Disposition: Routine/Home Disposition Time: 19:06 Condition: FAIR Instructions: Seizures, Adult (DC)
[2018-05-07 19:41] VITALS: PULSE 99; RESP 18; O2SAT 97
== END 2018-05-07 19:30 | disposition home or self-care (01) ==
LOC: H.ER 16:38
DX: G40.909 Epilepsy, unspecified, not intractable, without status epilepticus (principal); I10 Essential (primary) hypertension; Z86.718 Personal history of other venous thrombosis and embolism; Z88.6 Allergy status to analgesic agent; G89.29 Other chronic pain

== ENCOUNTER 2018-05-07 20:16 | Inpatient (IN) | payer MEDICAID ==
[2018-05-07 20:17] VITALS: BMI 24.0
--- NOTE | 2018-05-07 21:33 | ED PDOC ---
HPI:Nausea, Vomiting, Diarrhea Time Seen by Provider: 05/07/18 20:35 Chief Complaint (Nursing): GI Problem Chief Complaint (Provider): Hematemesis History Per: Patient History/Exam Limitations: intoxication Onset/Duration Of Symptoms: Mins (just prior to arrival) Current Symptoms Are (Timing): Gone Now Additional Complaint(s): 53 year old male well known to the ED and this provider for frequent intoxicated visits presents for a blood in his vomit after just being discharged. Upon arrival, patient's shirt is noted to have blood on it. Patient is a poor historian, so history is limited and all previous medical history is pulled from previous charting. PMD: none provided Past Medical History Reviewed: Historical Data, Nursing Documentation, Vital Signs Vital Signs: Last Vital Signs Temp 98.3 F 05/07/18 20:36 Pulse 122 H 05/07/18 20:36 Resp 20 05/07/18 20:36 BP 104/51 L 05/07/18 20:36 Pulse Ox 97 05/07/18 20:36 - Medical History PMH: Anemia, Anxiety, Back Problems (herniated disc), Deep Vein Thrombosis, Fractures, Gastritis, Gall Bladder Disease (Cholelithiasis), HTN, Pancreatitis, Pneumonia, Seizures, Chronic Pain (left shoulder) Denies: CHF, HIV, Hypercholesterolemia, Chronic Kidney Disease, Sexually Transmitted Disease - Surgical History Surgical History: Endoscopy - Family History Family History: States: Unknown Family Hx - Social History Alcohol: Other (hx of abuse) - Immunization History Hx Tetanus Toxoid Vaccination: Yes Hx Influenza Vaccination: Yes Hx Pneumococcal Vaccination: Yes - Home Medications Home Medications: Ambulatory Orders Medication Instructions Recorded Omeprazole 20 mg PO DAILY #30 capsule. 03/22/18 Folic Acid 1 mg PO DAILY #30 tab 04/09/18 Lactulose [Enulose] 10 gm PO BID #30 ml 04/09/18 Thiamine [Vitamin B1 Tab] 100 mg PO DAILY #30 tab 04/09/18 Levetiracetam [Keppra] 500 mg PO BID #60 tablet 04/18/18 Amoxicillin/Clavulanate [Augmentin 1 tab PO Q12 #20 tab 04/28/18 875 MG-125 MG] Bacitracin [Bacitracin Opht OINT] 1 applic OU TID 14 Days tube 05/02/18 - Allergies Allergies/Adverse Reactions: Allergies Allergy/AdvReac Type Severity Reaction Status Date / Time aspirin AdvReac GI Bleed Verified 05/07/18 20:35 ibuprofen [From Motrin] AdvReac GI Bleed Verified 05/07/18 20:35 naproxen AdvReac GI bleed Verified 05/07/18 20:35 NSAIDS (Non-Steroidal AdvReac GI bleed Verified 05/07/18 20:35 Anti-Inflamma Review of Systems ROS Statement: Except As Marked, All Systems Reviewed And Found Negative Gastrointestinal: Positive for: Hematemesis Physical Exam - Reviewed Nursing Documentation Reviewed: Yes Vital Signs Reviewed: Yes - Physical Exam Appears: Positive for: No Acute Distress Head Exam: Positive for: ATRAUMATIC, NORMOCEPHALIC Skin: Positive for: Normal Color. Negative for: Rash Eye Exam: Positive for: Normal appearance ENT: Positive for: Other (dried blood to left nare) Cardiovascular/Chest: Positive for: Tachycardia Respiratory: Positive for: Normal Breath Sounds. Negative for: Respiratory Distress Gastrointestinal/Abdominal: Positive for: Normal Exam, Soft. Negative for: Tenderness Back: Positive for: Normal Inspection Extremity: Positive for: Normal ROM Neurologic/Psych: Positive for: Alert (and awake) - Laboratory Results Result Diagrams: 05/07/18 21:50 05/07/18 21:50 - ECG O2 Sat by Pulse Oximetry: 97 (RA) Pulse Ox Interpretation: Normal - Critical Care Total Time (In Min): 30 Documented Critical Care: Time excludes all time spent performint seperately billable procedures Medical Decision Making Medical Decision Making: Time: 2099 Initial Impression: 53 year old intoxicated male with hematemesis Initial Plan: --Alcohol serum --CMP --U-dip --CBC with differential --EKG --PTT / PT --Accucheck --Urinalysis --IV fluids --Reevaluation 2232 Labs reviewed and significant for dropping hemoglobin. Packed RBC transfusion and IV protonix ordered. Patient is to be admitted for GI bleed. Scribe Attestation: Documented by Meryl Mahoney acting as a scribe for Olaf Fernandez MD. Provider Scribe Attestation: All medical record entries made by the Scribe were at my direction and personally dictated by me. I have reviewed the chart and agree that the record accurately reflects my personal performance of the history, physical exam, medical decision making, and the department course for this patient. I have also personally directed, reviewed, and agree with the discharge instructions and disposition. Disposition - Clinical Impression Clinical Impression: GI (gastrointestinal bleed), Anemia - Patient ED Disposition Is Patient to be Admitted: Yes Counseled Patient/Family Regarding: Studies Performed, Diagnosis - Disposition Disposition Time: 22:34 (Pt Admitted to Hospital) Condition: FAIR Forms: 20x200 (Frisian)
[2018-05-07] MEDS ORDERED: Sodium Chloride 0.9% 1,000 ML IV STA (21:43)
[2018-05-07 22:11] LABS: BASO # 0.1 K/uL (0.0-0.2); BASO % 0.9 % (0.0-2.0); EOS # 0.2 K/uL (0.0-0.7); EOS % 3.4 % (0.0-4.0); LYMPH # 0.9 K/uL (1.0-4.3); LYMPH % 13.4 % (20.0-40.0); MEAN CORPUSCULAR HEMOGLOBIN 27.1 pg (27.0-31.0); MEAN CORPUSCULAR HGB CONC 31.8 g/dL (33.0-37.0); MONO # 0.4 K/uL (0.0-0.8); MONO % 5.6 % (0.0-10.0); NEUT % 76.7 % (50.0-75.0); RBC 2.4 Mil/uL (4.40-5.90); RED CELL DISTRIBUTION WIDTH 19.5 % (11.5-14.5); WHITE BLOOD COUNT 6.5 K/uL (4.8-10.8)
[2018-05-07 22:15] LABS: INR 1.5; PROTHROMBIN TIME 17.6 Seconds (9.8-13.1)
[2018-05-07 22:17] LABS: PARTIAL THROMBOPLASTIN TIME 35.9 Seconds (25.6-37.1)
[2018-05-07 22:22] LABS: ALB/GLOB RATIO 0.7 (1.0-2.1); ALBUMIN 2.7 g/dL (3.5-5.0); ALT/SGPT 54 U/L (21-72); AST/SGOT 98 U/L (17-59); BLOOD UREA NITROGEN 21 mg/dl (9-20); CALCIUM 8.2 mg/dL (8.4-10.2); GFR NON-AFRICAN AMERICAN > 60
[2018-05-07 22:29] LABS: HEMOGLOBIN 6.5 g/dL (12.0-18.0)
[2018-05-07] MEDS ORDERED: Pantoprazole 40 MG in Sodium Chloride 0.9% 100 ML IV SCH (22:30)
[2018-05-07 22:31] LABS: MEAN CELL VOLUME 85.2 fl (80.0-94.0)
[2018-05-07 23:02] LABS: URINE BILIRUBIN NEGATIVE (NEGATIVE); URINE BLOOD SMALL (NEGATIVE); URINE CLARITY CLOUDY (Clear); URINE COLOR YELLOW (YELLOW); URINE GLUCOSE (UA) NEG (Normal); URINE LEUKOCYTE ESTERASE NEG Leu/uL (Negative); URINE PROTEIN 30 mg/dL (NEGATIVE)
[2018-05-07] MEDS ORDERED: Multivitamin (MVI) 10 ML, Folic Acid 1 MG, Thiamine 100 MG in Dextrose 5%/0.45% NS 1,00... IV ONE (23:31)
--- NOTE | 2018-05-07 23:59 | CP.PCM.HP ---
<Josselyn Lucas - Last Filed: 05/08/18 00:44> History of Present Illness - History of Present Illness History of Present Illness: HPI: History taken mostly from ED notes, pt is poor historian. Lethargic and refusing to answer questions 52 y/o male with PMHx of ETOH abuse, unwitnessed seizures, cirrhosis (s/p TIPS), hepatic encephalopathy present to the ED complaining of vomiting blood. States he was having abdominal pain that is better now. Cannot quantify how much blood he vomited. States his last drink was "a few days ago." Denies hematochezia or tarry stools. PMD: none PMHx: ETOH abuse, unwitnessed seizures, cirrhosis (s/p TIPS), hepatic encephalopathy, esophageal varices, chronic anemia Surgical hx: TIPs in 2014 Social hx: smoker; 3 cigarettes a day, 1.5 ppd previously, etoh abuse Family hx: father [place], mother smoker and of lung cancer, sister diagnosed with colon cancer, recently Allergies: asprin, ibuprofen, naproxen, NSAIDs (nausea for all of them) Next of Kin: [facility] [phone] ED Course: - Vitals: T 98.3, HR 122, BP 104/51, RR 20, O2 sat 97 on rm air - CBC: H/H: 6.5/20.5 (Prior Hg from 8.6 from 04/30), platelet 70 - Coag: PT 17.6 - CMP: AST/ALT: 98/54 - ETOH 154 - EKG: Sinus Tachy, no ischemic changes ED Interventions: - Type and Cross 2 units, consented - s/p 1L bolus NS - s/p Panoprazole 80mg IV, 8mg/hr drip Present on Admission - Present on Admission Any Indicators Present on Admission: No Past Patient History - Infectious Disease Hx of Infectious Diseases: None - Tetanus Immunizations Tetanus Immunization: Unknown - Past Medical History & Family History Past Medical History?: Yes - Past Social History Alcohol: Other (hx of abuse) - CARDIAC Hx Congestive Heart Failure: No Hx Hypercholesterolemia: No Hx Hypertension: Yes - PULMONARY Hx Pneumonia: Yes - NEUROLOGICAL Hx Seizures: Yes - HEENT Hx HEENT Problems: No - RENAL Hx Chronic Kidney Disease: No - ENDOCRINE/METABOLIC Hx Endocrine Disorders: No - HEMATOLOGICAL/ONCOLOGICAL Hx Anemia: Yes Hx Human Immunodeficiency Virus (HIV): No - INTEGUMENTARY Hx Dermatological Problems: Yes Hx Cellulitis: Yes - MUSCULOSKELETAL/RHEUMATOLOGICAL Hx Fractures: Yes - GASTROINTESTINAL Hx Gall Bladder Disease: Yes (Cholelithiasis) Hx Gastritis: Yes Hx Pancreatitis: Yes - GENITOURINARY/GYNECOLOGICAL Hx Sexually Transmitted Disorders: No - PSYCHIATRIC Hx Anxiety: Yes - SURGICAL HISTORY Hx Surgeries: Yes - ANESTHESIA Hx Anesthesia: Yes Hx Anesthesia Reactions: No Hx Malignant Hyperthermia: No Meds Allergies/Adverse Reactions: Allergies Allergy/AdvReac Type Severity Reaction Status Date / Time aspirin AdvReac GI Bleed Verified 05/07/18 20:35 ibuprofen [From Motrin] AdvReac GI Bleed Verified 05/07/18 20:35 naproxen AdvReac GI bleed Verified 05/07/18 20:35 NSAIDS (Non-Steroidal AdvReac GI bleed Verified 05/07/18 20:35 Anti-Inflamma Physical Exam - Constitutional Appears: No Acute Distress, Other (unkempt) - Head Exam Head Exam: NORMAL INSPECTION - Eye Exam Eye Exam: Normal appearance. absent: Scleral icterus - ENT Exam ENT Exam: Mucous Membranes Moist - Neck Exam Neck exam: Positive for: Full Rom - Respiratory Exam Respiratory Exam: Clear to Auscultation Bilateral. absent: Rales, Wheezes - Cardiovascular Exam Cardiovascular Exam: Tachycardia, +S2 - GI/Abdominal Exam GI & Abdominal Exam: Soft, Tenderness (Mild tenderness in epigastric region). absent: Distended, Guarding - Rectal Exam Rectal Exam: Deferred - Extremities Exam Extremities exam: Positive for: normal capillary refill, normal inspection, pedal pulses present - Neurological Exam Neurological exam: Alert (sleepy, able to conversate for short period) - Psychiatric Exam Psychiatric exam: Normal Mood Results - Vital Signs Recent Vital Signs: Last Vital Signs Temp 98.3 F 05/07/18 20:36 Pulse 122 H 05/07/18 20:36 Resp 20 05/07/18 20:36 BP 104/51 L 05/07/18 20:36 Pulse Ox 97 05/07/18 23:13 - Labs Result Diagrams: 05/07/18 21:50 05/07/18 21:50 Labs: Laboratory Results - last 24 hr 05/07/18 05/07/18 05/07/18 21:44 21:50 21:50 WBC 6.5 RBC 2.40 L Hgb 6.5 L* D Hct 20.5 L MCV 85.2 D MCH 27.1 MCHC 31.8 L RDW 19.5 H Plt Count 70 L MPV 7.0 L Neut % (Auto) 76.7 H Lymph % (Auto) 13.4 L [place] % (Auto) 5.6 Eos % (Auto) 3.4 Baso % (Auto) 0.9 Neut # (Auto) 5.0 Lymph # (Auto) 0.9 L [place] # (Auto) 0.4 Eos # (Auto) 0.2 Baso # (Auto) 0.1 PT INR APTT Sodium 141 Potassium 3.6 Chloride 108 H Carbon Dioxide 24 Anion Gap 13 BUN 21 H Creatinine 0.7 L Est GFR ( Amer) > 60 Est GFR (Non-Af Amer) > 60 POC Glucose (mg/dL) 112 H Random Glucose 112 H Calcium 8.2 L Total Bilirubin 1.5 H AST 98 H D ALT 54 Alkaline Phosphatase 162 H Total Protein 6.5 Albumin 2.7 L Globulin 3.8 Albumin/Globulin Ratio 0.7 L Urine Color Urine Clarity Urine pH Ur Specific [place] Urine Protein Urine Glucose (UA) Urine Ketones Urine Blood Urine Nitrate Urine Bilirubin Urine Urobilinogen Ur Leukocyte Esterase Urine RBC (Auto) Urine Microscopic WBC Alcohol, Quantitative 153 H Blood Type Antibody Screen Crossmatch BBK History Checked 05/07/18 05/07/18 05/07/18 21:50 21:50 22:50 WBC RBC Hgb Hct MCV MCH MCHC RDW Plt Count MPV Neut % (Auto) Lymph % (Auto) [place] % (Auto) Eos % (Auto) Baso % (Auto) Neut # (Auto) Lymph # (Auto) [place] # (Auto) Eos # (Auto) Baso # (Auto) PT 17.6 H INR 1.5 APTT 35.9 Sodium Potassium Chloride Carbon Dioxide Anion Gap BUN Creatinine Est GFR ( Amer) Est GFR (Non-Af Amer) POC Glucose (mg/dL) Random Glucose Calcium Total Bilirubin AST ALT Alkaline Phosphatase Total Protein Albumin Globulin Albumin/Globulin Ratio Urine Color Yellow Urine Clarity Cloudy Urine pH 6.0 Ur Specific [place] 1.017 Urine Protein 30 Urine Glucose (UA) Neg Urine Ketones Trace Urine Blood Small Urine Nitrate Negative Urine Bilirubin Negative Urine Urobilinogen 4.0 Ur Leukocyte Esterase Neg Urine RBC (Auto) 5 H Urine Microscopic WBC 1 Alcohol, Quantitative Blood Type O POSITIVE Antibody Screen Negative Crossmatch See Detail BBK History Checked Patient has bt Assessment & Plan - Assessment and Plan (Free Text) Assessment: . 52 YO with PMHx of ETOH abuse, unwitnessed seizures, cirrhosis (s/p TIPS), hepatic encephalopathy admitted for Hematemesis and acute blood loss anemia, Hg 6.5. #Hematemesis - Hemodynamically stable - Likely Gastritis vs PUD. Less likely varices as recent endoscopy did not show any - Last Endoscopy 01/2018: Gastritis, non bleeding Gastric Ulcers (Completed by Dr. Swartz) - s/p Protonix 80mg IV bolus - c/w Protonix infusion at 8mg/hr - GI Consulted - Zofran prn - Aspiration precautions #Abdominal Pain - Likely Gastritis vs PUD vs Pancreatitis - C/W IV PPI - F/U Lipase #Anemia - Hg dropped from 8.6 to 6.5 - 2 Units Type and Cross to be transfused - Monitor am CBC #Liver Cirrhosis - MELD's Score 13 - Secondary to chronic alcohol abuse - Complicated w/ Encephalopathy, - F/U Ammonia levels as UGIB can increase risk of hepatic encephalopathy - C/W Lactulose #Alcohol Abuser - ETOH 153, intoxicated on admission - CIWA protocol; CIWA 0 on admission - Ativan prn for signs of alcohol withdrawal - Banana Bag: D/5,Thiamine, Folate, Multivitamin - Monitor for signs of DT #Seizure Disorder - C/W Keppra home dose - Seizure precautions #Diet - Advance as tolerated #DVT ppx - SCD's for now given UGIB #Tele for cardiac monitoring Discussed case with Dr. Cummins <Chong Cummins - Last Filed: 05/08/18 01:28> Results - Vital Signs Recent Vital Signs: Last Vital Signs Temp 99.1 F 05/08/18 01:01 Pulse 115 H 05/08/18 01:01 Resp 18 05/08/18 01:01 BP 122/67 05/08/18 01:01 Pulse Ox 97 05/07/18 23:13 - Labs Result Diagrams: 05/07/18 21:50 05/07/18 21:50 Labs: Laboratory Results - last 24 hr 05/07/18 05/07/18 05/07/18 21:44 21:50 21:50 WBC 6.5 RBC 2.40 L Hgb 6.5 L* D Hct 20.5 L MCV 85.2 D MCH 27.1 MCHC 31.8 L RDW 19.5 H Plt Count 70 L MPV 7.0 L Neut % (Auto) 76.7 H Lymph % (Auto) 13.4 L [place] % (Auto) 5.6 Eos % (Auto) 3.4 Baso % (Auto) 0.9 Neut # (Auto) 5.0 Lymph # (Auto) 0.9 L [place] # (Auto) 0.4 Eos # (Auto) 0.2 Baso # (Auto) 0.1 PT INR APTT Sodium 141 Potassium 3.6 Chloride 108 H Carbon Dioxide 24 Anion Gap 13 BUN 21 H Creatinine 0.7 L Est GFR ( Amer) > 60 Est GFR (Non-Af Amer) > 60 POC Glucose (mg/dL) 112 H Random Glucose 112 H Calcium 8.2 L Total Bilirubin 1.5 H AST 98 H D ALT 54 Alkaline Phosphatase 162 H Total Protein 6.5 Albumin 2.7 L Globulin 3.8 Albumin/Globulin Ratio 0.7 L Lipase Urine Color Urine Clarity Urine pH Ur Specific [place] Urine Protein Urine Glucose (UA) Urine Ketones Urine Blood Urine Nitrate Urine Bilirubin Urine Urobilinogen Ur Leukocyte Esterase Urine RBC (Auto) Urine Microscopic WBC Alcohol, Quantitative 153 H Blood Type Antibody Screen Crossmatch BBK History Checked 05/07/18 05/07/18 05/07/18 21:50 21:50 22:50 WBC RBC Hgb Hct MCV MCH MCHC RDW Plt Count MPV Neut % (Auto) Lymph % (Auto) [place] % (Auto) Eos % (Auto) Baso % (Auto) Neut # (Auto) Lymph # (Auto) [place] # (Auto) Eos # (Auto) Baso # (Auto) PT 17.6 H INR 1.5 APTT 35.9 Sodium Potassium Chloride Carbon Dioxide Anion Gap BUN Creatinine Est GFR ( Amer) Est GFR (Non-Af Amer) POC Glucose (mg/dL) Random Glucose Calcium Total Bilirubin AST ALT Alkaline Phosphatase Total Protein Albumin Globulin Albumin/Globulin Ratio Lipase Urine Color Yellow Urine Clarity Cloudy Urine pH 6.0 Ur Specific [place] 1.017 Urine Protein 30 Urine Glucose (UA) Neg Urine Ketones Trace Urine Blood Small Urine Nitrate Negative Urine Bilirubin Negative Urine Urobilinogen 4.0 Ur Leukocyte Esterase Neg Urine RBC (Auto) 5 H Urine Microscopic WBC 1 Alcohol, Quantitative Blood Type O POSITIVE Antibody Screen Negative Crossmatch See Detail BBK History Checked Patient has bt 05/07/18 23:56 WBC RBC Hgb Hct MCV MCH MCHC RDW Plt Count MPV Neut % (Auto) Lymph % (Auto) [place] % (Auto) Eos % (Auto) Baso % (Auto) Neut # (Auto) Lymph # (Auto) [place] # (Auto) Eos # (Auto) Baso # (Auto) PT INR APTT Sodium Potassium Chloride Carbon Dioxide Anion Gap BUN Creatinine Est GFR ( Amer) Est GFR (Non-Af Amer) POC Glucose (mg/dL) Random Glucose Calcium Total Bilirubin AST ALT Alkaline Phosphatase Total Protein Albumin Globulin Albumin/Globulin Ratio Lipase 256 Urine Color Urine Clarity Urine pH Ur Specific [place] Urine Protein Urine Glucose (UA) Urine Ketones Urine Blood Urine Nitrate Urine Bilirubin Urine Urobilinogen Ur Leukocyte Esterase Urine RBC (Auto) Urine Microscopic WBC Alcohol, Quantitative Blood Type Antibody Screen Crossmatch BBK History Checked Attending/Attestation - Attestation I have personally seen and examined this patient.: Yes I have fully participated in the care of the patient.: Yes I have reviewed all pertinent clinical information: Yes Notes (Text): I saw, examined and discussed this patient with Dr Lucas. I agree with the Assessment and plan above. This is a 53 years old male with hx of Alcohol abuse, liver Cirrhosis s/p TIPs procedure, is seen at the [facility] ED on a daily basis. He came to the ED today seen and was discharged. He returned referring vomiting up blood and has epigastric pains. His Alcohol level was 153 and hemoglobin was 6.5g/dl. This could be secondary to hemorrhagic Gastritis.He will be transfused 2 units of PRBC and Hemoglobin will be followed. Pantoprazole drip has been started. A Banana bag which includes Thiamine, Folic Acid and Multivitamin is started with Alcohol withdrawal precaution and Ativan for Agitation. He will be continued on his Keppra for the seizure Ammonia level is pending. Continue Lactulose Chong Cummins MD 1
[2018-05-08] MEDS ORDERED: Sodium Chloride 0.9% 1,000 ML IV SCH (03:30)
[2018-05-08 06:16] LABS: ALB/GLOB RATIO 0.7 (1.0-2.1); ALBUMIN 2.3 g/dL (3.5-5.0); ALT/SGPT 53 U/L (21-72); AST/SGOT 88 U/L (17-59); BLOOD UREA NITROGEN 22 mg/dl (9-20); CALCIUM 7.3 mg/dL (8.4-10.2); GFR NON-AFRICAN AMERICAN > 60
[2018-05-08] MEDS: Pantoprazole 40 MG in Sodium Chloride 0.9% 100 ML IV SCH ×2 (06:29→17:05)
--- NOTE | 2018-05-08 08:53 | CARD ---
APPROVED REPORT Date of service: 05/07/2018 EKG Measurement Heart [id number] <Conclusion> Sinus tachycardia Otherwise normal ECG
[2018-05-08] MEDS: Magnesium Oxide 400 mg Tab UD PO SCH (08:56)
[2018-05-08] MEDS ORDERED: Magnesium Sulfate 1 gm in D5W 1 GM/100 ML BAG IVPB ONE (09:00)
[2018-05-08] MEDS ORDERED: Lactulose 10 gm/15 ml (Rectal Use) PR SCH (09:00)
--- NOTE | 2018-05-08 09:48 | CP.PCM.PN ---
<Elkin Paige - Last Filed: 05/08/18 15:34> Subjective - Date & Time of Evaluation Date of Evaluation: 05/08/18 Time of Evaluation: 07:00 - Subjective Subjective: Patient was seen and examined at bedside. Patient still in the ER when seen. Patient had a small amount of coffee ground color vomit once at 00:06 . He state that he is hungry and want to eat. He denies any dizziness, anxious, headache, chest pain, sob, abd pain, back pain, diarrhea, constipation or any other symptoms. Objective - Vital Signs/Intake and Output Vital Signs (last 24 hours): Temp Pulse Resp BP Pulse Ox 99.5 F 92 H 19 114/76 96 05/08/18 08:18 05/08/18 08:18 05/08/18 08:18 05/08/18 08:18 05/08/18 08:18 Intake and Output: 05/08/18 05/08/18 06:59 18:59 Intake Total 396 Balance 396 - Medications Medications: Current Medications Sodium Chloride (Sodium Chloride 0.9%) 1,000 mls @ 999 mls/hr IV .Q1H1M [facility] Stop: 05/09/18 03:29 Last Admin: 05/08/18 03:38 Dose: 999 mls/hr Pantoprazole Sodium 40 mg/ (Sodium Chloride) 100 mls @ 20 mls/hr IV Q5H [facility] Last Admin: 05/08/18 06:29 Dose: 20 mls/hr Lactulose (Enulose) 20 gm PO QID [facility] Levetiracetam (Keppra) 500 mg PO BID [facility] Last Admin: 05/08/18 08:57 Dose: 500 mg Lorazepam (Ativan) 1 mg IVP Q4H PRN PRN Reason: Symptoms of alcohol withdrawl Magnesium Oxide (Mag-Ox) 400 mg PO DAILY [facility] Last Admin: 05/08/18 08:56 Dose: 400 mg Ondansetron HCl (Zofran Inj) 4 mg IVP Q4 PRN PRN Reason: Nausea/Vomiting Last Admin: 05/08/18 00:06 Dose: 4 mg Rifaximin (Xifaxan) 200 mg PO Q8 [facility]; Protocol Last Admin: 05/08/18 08:56 Dose: 200 mg - Labs Labs: 05/07/18 21:50 05/08/18 04:00 PT 17.6 Seconds (9.8-13.1) H 05/07/18 21:50 INR 1.5 05/07/18 21:50 APTT 35.9 Seconds (25.6-37.1) 05/07/18 21:50 - Constitutional Appears: Well, Non-toxic, No Acute Distress - Head Exam Head Exam: ATRAUMATIC, NORMAL INSPECTION, NORMOCEPHALIC - Eye Exam Eye Exam: EOMI, Normal appearance, PERRL Pupil Exam: NORMAL ACCOMODATION, PERRL - ENT Exam ENT Exam: Mucous Membranes Moist, Normal Exam Additional comments: No active bleeding noted - Neck Exam Neck Exam: Full ROM, Normal Inspection - Respiratory Exam Respiratory Exam: Clear to Ausculation Bilateral, NORMAL BREATHING PATTERN. absent: Chest Wall Tenderness, Decreased Breath Sounds - Cardiovascular Exam Cardiovascular Exam: REGULAR RHYTHM, +S1, +S2 - GI/Abdominal Exam GI & Abdominal Exam: Soft, Normal Bowel Sounds - Extremities Exam Extremities Exam: Full ROM, Normal Capillary Refill, Normal Inspection - Back Exam Back Exam: NORMAL INSPECTION - Neurological Exam Neurological Exam: Alert, Awake, Oriented x3 - Psychiatric Exam Psychiatric exam: Normal Affect, Normal Mood - Skin Skin Exam: Dry, Intact, Normal Color, Warm Assessment and Plan - Assessment and Plan (Free Text) Assessment: 52 YO with PMHx of ETOH abuse, unwitnessed seizures, cirrhosis (s/p TIPS), hepatic encephalopathy admitted for Hematemesis and acute blood loss anemia, Hg 6.5. Hematemesis -Patient is stable - Possible Michelle Nasasr tear due patient is chronic alcoholic and admit of multiple episode of vomit. varices unlikely due patient had recent negative endoscope for varices - Last Endoscopy 01/2018: Gastritis, non bleeding Gastric Ulcers (Completed by Dr. Swartz) - s/p Protonix 80mg IV bolus - Continue Protonix infusion at 8mg/hr - F/U GI Consulte - Zofran prn - Aspiration precautions Anemia - Hg dropped from 8.6 to 6.5 - 2 Units Type and Cross have been ordered and transfuse - CBC pending hyperammonemia -Amonia level 103 -Patient mental status stable, no sign of confusion - Start on Rifaximin - Continue Lactulose hypomagnesemia -Mg 1.4 -start IV Mg oxide 400mg Liver Cirrhosis -Hyperammonemia - MELD's Score 13 - Secondary to chronic alcohol abuse - Complicated w/ Encephalopathy -Continue treating herperammonemia Alcohol Abuser - ETOH 153, intoxicated on admission - CIWA protocol; CIWA 0 on admission - Ativan prn for signs of alcohol withdrawal - Banana Bag: D/5,Thiamine, Folate, Multivitamin - Monitor for signs of DT Abdominal Pain - Likely Gastritis vs PUD vs Pancreatitis - C/W IV PPI - Lipaste 256 Seizure Disorder - C/W Keppra home dose - Seizure precautions DVT prophylaxis - NO Lovenox now due to bleeding -SCD for now as prophylaxis measure <Sandra Lei - Last Filed: 05/08/18 15:55> Objective - Vital Signs/Intake and Output Vital Signs (last 24 hours): Temp Pulse Resp BP Pulse Ox 98.6 F 60 18 138/76 99 05/08/18 15:48 05/08/18 15:48 05/08/18 15:48 05/08/18 15:48 05/08/18 15:48 Intake and Output: 05/08/18 05/08/18 06:59 18:59 Intake Total 396 Balance 396 - Medications Medications: Current Medications Sodium Chloride (Sodium Chloride 0.9%) 1,000 mls @ 999 mls/hr IV .Q1H1M [facility] Stop: 05/09/18 03:29 Last Admin: 05/08/18 03:38 Dose: 999 mls/hr Pantoprazole Sodium 40 mg/ (Sodium Chloride) 100 mls @ 20 mls/hr IV Q5H [facility] Last Admin: 05/08/18 06:29 Dose: 20 mls/hr Lactulose (Enulose) 20 gm PO QID [facility] Last Admin: 05/08/18 13:46 Dose: Not Given Levetiracetam (Keppra) 500 mg PO BID [facility] Last Admin: 05/08/18 08:57 Dose: 500 mg Lorazepam (Ativan) 1 mg IVP Q4H PRN PRN Reason: Symptoms of alcohol withdrawl Magnesium Oxide (Mag-Ox) 400 mg PO DAILY [facility] Last Admin: 05/08/18 08:56 Dose: 400 mg Ondansetron HCl (Zofran Inj) 4 mg IVP Q4 PRN PRN Reason: Nausea/Vomiting Last Admin: 05/08/18 00:06 Dose: 4 mg Rifaximin (Xifaxan) 200 mg PO Q8 [facility]; Protocol Last Admin: 05/08/18 08:56 Dose: 200 mg Thiamine HCl (Vitamin B1 Tab) 100 mg PO DAILY [facility] - Labs Labs: 05/07/18 21:50 05/08/18 04:00 PT 17.6 Seconds (9.8-13.1) H 05/07/18 21:50 INR 1.5 05/07/18 21:50 APTT 35.9 Seconds (25.6-37.1) 05/07/18 21:50 Attending/Attestation - Attestation I have personally seen and examined this patient.: Yes I have fully participated in the care of the patient.: Yes I have reviewed all pertinent clinical information, including history, physical exam and plan: Yes
--- NOTE | 2018-05-08 22:39 | CP.PCM.CON ---
History of Present Illness - History of Present Illness History of Present Illness: 53 y male with h/ alcoholic cirrhosis admitted with anemia and hematemesis Has had TIPS in the past. Review of Systems - Constitutional Constitutional: absent: Chills - EENT Eyes: absent: Blurred Vision Ears: absent: Ear Discharge Nose/Mouth/Throat: absent: Nasal Congestion - Cardiovascular Cardiovascular: absent: Chest Pain - Respiratory Respiratory: absent: Dyspnea - Gastrointestinal Gastrointestinal: As Per HPI Past Patient History - Infectious Disease Hx of Infectious Diseases: None - Tetanus Immunizations Tetanus Immunization: Unknown - Past Medical History & Family History Past Medical History?: Yes - Past Social History Smoking Status: Former Smoker - CARDIAC Hx Congestive Heart Failure: No Hx Hypercholesterolemia: No Hx Hypertension: Yes - PULMONARY Hx Pneumonia: Yes - NEUROLOGICAL Hx Seizures: Yes - HEENT Hx HEENT Problems: No - RENAL Hx Chronic Kidney Disease: No - ENDOCRINE/METABOLIC Hx Endocrine Disorders: No - HEMATOLOGICAL/ONCOLOGICAL Hx AIDS: No Hx Anemia: Yes Hx Human Immunodeficiency Virus (HIV): No - INTEGUMENTARY Hx Dermatological Problems: Yes Hx Cellulitis: Yes - MUSCULOSKELETAL/RHEUMATOLOGICAL Hx Falls: Yes Hx Fractures: Yes - GASTROINTESTINAL Hx Gall Bladder Disease: Yes (Cholelithiasis) Hx Gastritis: Yes Hx Pancreatitis: Yes - GENITOURINARY/GYNECOLOGICAL Hx Sexually Transmitted Disorders: No - PSYCHIATRIC Hx Anxiety: Yes Hx Substance Use: No - SURGICAL HISTORY Hx Surgeries: Yes - ANESTHESIA Hx Anesthesia: Yes Hx Anesthesia Reactions: No Hx Malignant Hyperthermia: No Meds Allergies/Adverse Reactions: Allergies Allergy/AdvReac Type Severity Reaction Status Date / Time aspirin AdvReac GI Bleed Verified 05/07/18 20:35 ibuprofen [From Motrin] AdvReac GI Bleed Verified 05/07/18 20:35 naproxen AdvReac GI bleed Verified 05/07/18 20:35 NSAIDS (Non-Steroidal AdvReac GI bleed Verified 05/07/18 20:35 Anti-Inflamma - Medications Medications: Current Medications Sodium Chloride (Sodium Chloride 0.9%) 1,000 mls @ 999 mls/hr IV .Q1H1M [facility] Stop: 05/09/18 03:29 Last Admin: 05/08/18 03:38 Dose: 999 mls/hr Pantoprazole Sodium 40 mg/ (Sodium Chloride) 100 mls @ 20 mls/hr IV Q5H [facility] Last Admin: 05/08/18 17:05 Dose: 20 mls/hr Lactulose (Enulose) 20 gm PO QID [facility] Last Admin: 05/08/18 21:09 Dose: 20 gm Levetiracetam (Keppra) 500 mg PO BID [facility] Last Admin: 05/08/18 17:13 Dose: 500 mg Lorazepam (Ativan) 1 mg IVP Q4H PRN PRN Reason: Symptoms of alcohol withdrawl Last Admin: 05/08/18 19:53 Dose: 1 mg Magnesium Oxide (Mag-Ox) 400 mg PO DAILY [facility] Last Admin: 05/08/18 08:56 Dose: 400 mg Ondansetron HCl (Zofran Inj) 4 mg IVP Q4 PRN PRN Reason: Nausea/Vomiting Last Admin: 05/08/18 00:06 Dose: 4 mg Rifaximin (Xifaxan) 200 mg PO Q8 [facility]; Protocol Last Admin: 05/08/18 17:05 Dose: 200 mg Thiamine HCl (Vitamin B1 Tab) 100 mg PO DAILY [facility] Last Admin: 05/08/18 17:05 Dose: 100 mg Physical Exam - Head Exam Head Exam: ATRAUMATIC - Eye Exam Eye Exam: Normal appearance - ENT Exam ENT Exam: Normal Exam - Neck Exam Neck exam: Positive for: Normal Inspection - Respiratory Exam Respiratory Exam: Clear to Auscultation Bilateral - Cardiovascular Exam Cardiovascular Exam: REGULAR RHYTHM - GI/Abdominal Exam GI & Abdominal Exam: Normal Bowel Sounds, Soft Results - Vital Signs Recent Vital Signs: Last Vital Signs Temp 98.9 F 05/08/18 20:28 Pulse 85 05/08/18 20:28 Resp 20 05/08/18 20:28 BP 122/64 05/08/18 20:28 Pulse Ox 100 05/08/18 20:28 - Labs Result Diagrams: 05/07/18 21:50 05/08/18 04:00 Labs: Laboratory Results - last 24 hr 05/07/18 05/07/18 05/07/18 21:50 22:50 23:56 Sodium Potassium Chloride Carbon Dioxide Anion Gap BUN Creatinine Est GFR ( Amer) Est GFR (Non-Af Amer) Random Glucose Calcium Phosphorus Magnesium Total Bilirubin AST ALT Alkaline Phosphatase Ammonia Total Protein Albumin Globulin Albumin/Globulin Ratio Lipase 256 Urine Color Yellow Urine Clarity Cloudy Urine pH 6.0 Ur Specific Kinzers 1.017 Urine Protein 30 Urine Glucose (UA) Neg Urine Ketones Trace Urine Blood Small Urine Nitrate Negative Urine Bilirubin Negative Urine Urobilinogen 4.0 Ur Leukocyte Esterase Neg Urine RBC (Auto) 5 H Urine Microscopic WBC 1 Blood Type O POSITIVE Antibody Screen Negative Crossmatch See Detail BBK History Checked Patient has bt 05/08/18 05/08/18 05/08/18 01:05 04:00 04:40 Sodium 141 Potassium 3.8 Chloride 112 H Carbon Dioxide 22 Anion Gap 11 BUN 22 H Creatinine 0.5 L Est GFR ( Amer) > 60 Est GFR (Non-Af Amer) > 60 Random Glucose 112 H Calcium 7.3 L Phosphorus 2.9 Magnesium 1.4 L Total Bilirubin 1.7 H AST 88 H ALT 53 Alkaline Phosphatase 132 H Ammonia 103 H* D Total Protein 5.8 L Albumin 2.3 L Globulin 3.5 Albumin/Globulin Ratio 0.7 L Lipase Urine Color Urine Clarity Urine pH Ur Specific Kinzers Urine Protein Urine Glucose (UA) Urine Ketones Urine Blood Urine Nitrate Urine Bilirubin Urine Urobilinogen Ur Leukocyte Esterase Urine RBC (Auto) Urine Microscopic WBC Blood Type Antibody Screen Crossmatch BBK History Checked Assessment & Plan (1) GI bleed Assessment and Plan: R/o ulcer and gastritis. Transfuse to over 8. PPI. Upper endoscopy tomorrow Status: Acute
[2018-05-09] MEDS: Pantoprazole 40 MG in Sodium Chloride 0.9% 100 ML IV SCH ×5 (00:30→20:55)
[2018-05-09 06:02] LABS: HEMOGLOBIN 7.2 g/dL (12.0-18.0); MEAN CELL VOLUME 86.1 fl (80.0-94.0); MEAN CORPUSCULAR HEMOGLOBIN 26.9 pg (27.0-31.0); MEAN CORPUSCULAR HGB CONC 31.3 g/dL (33.0-37.0); RBC 2.67 Mil/uL (4.40-5.90); RED CELL DISTRIBUTION WIDTH 19.4 % (11.5-14.5); WHITE BLOOD COUNT 2.5 K/uL (4.8-10.8)
[2018-05-09 06:24] LABS: ALB/GLOB RATIO 0.7 (1.0-2.1); ALBUMIN 2.4 g/dL (3.5-5.0); ALT/SGPT 44 U/L (21-72); AST/SGOT 85 U/L (17-59); BLOOD UREA NITROGEN 12 mg/dl (9-20); CALCIUM 7.5 mg/dL (8.4-10.2); GFR NON-AFRICAN AMERICAN > 60
[2018-05-09] MEDS ORDERED: Magnesium Sulfate 2 GM in Sodium Chloride 0.9% 100 ML IVPB ONE (07:51)
--- NOTE | 2018-05-09 08:13 | CP.PCM.PN ---
<Josselyn Lucas - Last Filed: 05/09/18 12:00> Subjective - Date & Time of Evaluation Date of Evaluation: 05/09/18 Time of Evaluation: 09:00 - Subjective Subjective: NPO overnight. Hg noted to be 7.2. 1 unit PRBC ordered to be transfused to hemoglobin of 8 as per GI. Pt denies any episodes of hematemesis, anxiety, tremors, hallucinations. Objective - Vital Signs/Intake and Output Vital Signs (last 24 hours): Temp Pulse Resp BP Pulse Ox 98.6 F 88 18 122/69 96 05/09/18 07:53 05/09/18 07:53 05/09/18 07:53 05/09/18 07:53 05/09/18 07:53 - Medications Medications: Current Medications Pantoprazole Sodium 40 mg/ (Sodium Chloride) 100 mls @ 20 mls/hr IV Q5H [facility] Last Admin: 05/09/18 05:30 Dose: 20 mls/hr Magnesium Sulfate (Magnesium Sulfate 2 Gm/50 Ml Water) 2 gm in 50 mls @ 50 mls/hr IVPB ONCE ONE Stop: 05/09/18 09:29 Lactulose (Enulose) 20 gm PO QID [facility] Last Admin: 05/08/18 21:09 Dose: 20 gm Levetiracetam (Keppra) 500 mg PO BID [facility] Last Admin: 05/08/18 17:13 Dose: 500 mg Lorazepam (Ativan) 1 mg IVP Q4H PRN PRN Reason: Symptoms of alcohol withdrawl Last Admin: 05/08/18 19:53 Dose: 1 mg Magnesium Oxide (Mag-Ox) 400 mg PO DAILY [facility] Last Admin: 05/08/18 08:56 Dose: 400 mg Ondansetron HCl (Zofran Inj) 4 mg IVP Q4 PRN PRN Reason: Nausea/Vomiting Last Admin: 05/08/18 00:06 Dose: 4 mg Rifaximin (Xifaxan) 200 mg PO Q8 [facility]; Protocol Last Admin: 05/09/18 01:07 Dose: 200 mg Thiamine HCl (Vitamin B1 Tab) 100 mg PO DAILY [facility] Last Admin: 05/08/18 17:05 Dose: 100 mg - Labs Labs: 05/09/18 04:30 05/09/18 04:30 PT 17.6 Seconds (9.8-13.1) H 05/07/18 21:50 INR 1.5 05/07/18 21:50 APTT 35.9 Seconds (25.6-37.1) 05/07/18 21:50 - Constitutional Appears: Non-toxic, No Acute Distress - Head Exam Head Exam: NORMAL INSPECTION - Eye Exam Eye Exam: absent: Scleral icterus - ENT Exam ENT Exam: Mucous Membranes Moist - Neck Exam Neck Exam: Full ROM - Respiratory Exam Respiratory Exam: Clear to Ausculation Bilateral. absent: Rales, Wheezes - Cardiovascular Exam Cardiovascular Exam: REGULAR RHYTHM, +S1, +S2. absent: Murmur - GI/Abdominal Exam GI & Abdominal Exam: Soft, Normal Bowel Sounds. absent: Tenderness - Extremities Exam Extremities Exam: Normal Inspection - Neurological Exam Neurological Exam: Alert, Awake, Oriented x3 - Psychiatric Exam Psychiatric exam: Normal Affect. absent: Anxious - Skin Skin Exam: Pallor Assessment and Plan - Assessment and Plan (Free Text) Assessment: YO with PMHx of ETOH abuse, unwitnessed seizures, cirrhosis (s/p TIPS), hepatic encephalopathy admitted for Hematemesis and acute blood loss anemia, Hg 6.5 on admission, 7.2 post transfusion of 2 units PRBC. Hematemesis - No new episodes. - Hemodynamically stable - Possible Michelle Nassar tear due patient is chronic alcoholic and admit of multiple episode of vomit. Varices unlikely due patient had recent negative endoscope for varices - Last Endoscopy 01/2018: Gastritis, non bleeding Gastric Ulcers (Completed by Dr. Swartz) - s/p Protonix 80mg IV bolus - Continue Protonix infusion at 8mg/hr - F/U GI Consulted- Endoscopy today - Zofran prn - Aspiration precautions Anemia - Hg dropped from 8.6 to 6.5. Now 7.2 - s/p 2 units PRBC. Will transfuse 1 unit with goal of hemoglobin to 8 as per GI - CBC pending hyperammonemia -Ammonia level 103 -Patient mental status stable, no sign of confusion - Start on Rifaximin - Continue Lactulose hypomagnesemia -Mg 1.4 -start IV Mg oxide 400mg Liver Cirrhosis -Hyperammonemia - MELD's Score 13 - Secondary to chronic alcohol abuse - Complicated w/ Encephalopathy -Continue treating herperammonemia Alcohol Abuser - ETOH 153, intoxicated on admission - DANE protocol; CIWA 0 on admission - Ativan prn for signs of alcohol withdrawal - Banana Bag: D/5,Thiamine, Folate, Multivitamin - Monitor for signs of DT Abdominal Pain - Likely Gastritis vs PUD - C/W IV PPI - Lipaste 256 Seizure Disorder - C/W Keppra home dose - Seizure precautions DVT prophylaxis - NO Lovenox now due to bleeding -SCD for now as prophylaxis measure <Sandra Lei - Last Filed: 05/09/18 16:31> Objective - Vital Signs/Intake and Output Vital Signs (last 24 hours): Temp Pulse Resp BP Pulse Ox 98.2 F 69 20 134/70 100 05/09/18 15:46 05/09/18 15:46 05/09/18 15:46 05/09/18 15:46 05/09/18 15:46 Intake and Output: 05/09/18 05/09/18 06:59 18:59 Intake Total 525 Balance 525 - Medications Medications: Current Medications Pantoprazole Sodium 40 mg/ (Sodium Chloride) 100 mls @ 20 mls/hr IV Q5H [facility] Last Admin: 05/09/18 12:24 Dose: 20 mls/hr Multivitamins/Vitamin C 10 ml/Thiamine HCl 100 mg/ Folic Acid 1 mg/ Dextrose/Sodium Chloride 1,011.2 mls @ 120 mls/hr IV .Q8H26M ONE Stop: 05/09/18 20:30 Potassium Chloride/Dextrose/Sod Cl (Potassium Chl 20 Meq In D5-1/2ns) 1,000 mls @ 60 mls/hr IV .[id number] [facility] Stop: 05/10/18 15:32 Lactulose (Enulose) 20 gm PO QID [facility] Last Admin: 05/09/18 09:01 Dose: Not Given Levetiracetam (Keppra) 500 mg PO BID [facility] Last Admin: 05/09/18 12:23 Dose: 500 mg Lorazepam (Ativan) 1 mg IVP Q4H PRN PRN Reason: Symptoms of alcohol withdrawl Last Admin: 05/08/18 19:53 Dose: 1 mg Magnesium Oxide (Mag-Ox) 400 mg PO DAILY [facility] Last Admin: 05/09/18 09:01 Dose: Not Given Ondansetron HCl (Zofran Inj) 4 mg IVP Q4 PRN PRN Reason: Nausea/Vomiting Last Admin: 05/08/18 00:06 Dose: 4 mg - Labs Labs: 05/09/18 04:30 05/09/18 04:30 PT 17.6 Seconds (9.8-13.1) H 05/07/18 21:50 INR 1.5 05/07/18 21:50 APTT 35.9 Seconds (25.6-37.1) 05/07/18 21:50 Attending/Attestation - Attestation I have personally seen and examined this patient.: Yes I have fully participated in the care of the patient.: Yes I have reviewed all pertinent clinical information, including history, physical exam and plan: Yes Notes (Text): Upper GI Bleed Acute Blood Loss Anemia due to GI Bleed - cont PPI -plan for EGD in am - transfuse 1 more unit of PRBC
[2018-05-09] MEDS ORDERED: Magnesium Sulfate 2 gm/50 ml 2 GM/50 ML BAG IVPB ONE (08:30)
[2018-05-09] MEDS: Magnesium Oxide 400 mg Tab UD PO SCH (09:01)
[2018-05-09] MEDS ORDERED: Multivitamin (MVI) 10 ML, Thiamine 100 MG, Folic Acid 1 MG in Dextrose 5%/0.45% NS 1,00... IV ONE (12:05)
--- NOTE | 2018-05-09 15:16 | PQF ---
PROVIDER RESPONSE TEXT: Alcoholic Encephalopathy REVIEWER QUERY TEXT: Encephalopathy Type Encephalopathy is documented in the Medical Record. 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
--- NOTE | 2018-05-09 15:24 | CP.PCM.PN ---
Subjective - Date & Time of Evaluation Date of Evaluation: 05/09/18 Time of Evaluation: 08:00 - Subjective Subjective: Progress Note- Dr. Swartz Patient seen and examined at bedside. No acute complaints. Currently being transfused PRBC. Resting comfortably in bed. answer all questions appropriately. +OOB w/ walker. denies N/V/F/C/CP/SOB/BRBPR Objective - Vital Signs/Intake and Output Vital Signs (last 24 hours): Temp Pulse Resp BP Pulse Ox 97.9 F 64 18 125/65 98 05/09/18 12:00 05/09/18 12:00 05/09/18 12:00 05/09/18 12:00 05/09/18 12:00 Intake and Output: 05/09/18 05/09/18 06:59 18:59 Intake Total 525 Balance 525 - Medications Medications: Current Medications Pantoprazole Sodium 40 mg/ (Sodium Chloride) 100 mls @ 20 mls/hr IV Q5H [facility] Last Admin: 05/09/18 12:24 Dose: 20 mls/hr Multivitamins/Vitamin C 10 ml/Thiamine HCl 100 mg/ Folic Acid 1 mg/ Dextrose/Sodium Chloride 1,011.2 mls @ 120 mls/hr IV .Q8H26M ONE Stop: 05/09/18 20:30 Lactulose (Enulose) 20 gm PO QID [facility] Last Admin: 05/09/18 09:01 Dose: Not Given Levetiracetam (Keppra) 500 mg PO BID [facility] Last Admin: 05/09/18 12:23 Dose: 500 mg Lorazepam (Ativan) 1 mg IVP Q4H PRN PRN Reason: Symptoms of alcohol withdrawl Last Admin: 05/08/18 19:53 Dose: 1 mg Magnesium Oxide (Mag-Ox) 400 mg PO DAILY [facility] Last Admin: 05/09/18 09:01 Dose: Not Given Ondansetron HCl (Zofran Inj) 4 mg IVP Q4 PRN PRN Reason: Nausea/Vomiting Last Admin: 05/08/18 00:06 Dose: 4 mg - Labs Labs: 05/09/18 04:30 05/09/18 04:30 PT 17.6 Seconds (9.8-13.1) H 05/07/18 21:50 INR 1.5 05/07/18 21:50 APTT 35.9 Seconds (25.6-37.1) 05/07/18 21:50 - Constitutional Appears: Non-toxic, No Acute Distress - Head Exam Head Exam: ATRAUMATIC - Eye Exam Eye Exam: EOMI. absent: Scleral icterus - ENT Exam ENT Exam: Mucous Membranes Moist - Respiratory Exam Respiratory Exam: NORMAL BREATHING PATTERN. absent: Accessory Muscle Use, Respiratory Distress - Cardiovascular Exam Cardiovascular Exam: +S1, +S2. absent: Bradycardia, Tachycardia - GI/Abdominal Exam GI & Abdominal Exam: Soft. absent: Distended, Firm, Guarding, Rigid, Tenderness, Pulsatile Mass, Rebound - Neurological Exam Neurological Exam: Alert, Awake, Oriented x3 - Psychiatric Exam Psychiatric exam: Normal Affect - Skin Skin Exam: Intact, Warm Assessment and Plan - Assessment and Plan (Free Text) Assessment: 53M w/ anemia r/o gastric ulcer Plan: - NPO after MN - Plan for upper scope tomorrow - repeat H/H tomorrow - discussed w/ Dr. Swartz GI attending PGY2
[2018-05-09] MEDS ORDERED: Potassium Ch 20mEq in D5-1/2NS 1,000 ML IV SCH (15:45)
[2018-05-09 18:09] LABS: HEMOGLOBIN 8.7 g/dL (12.0-18.0); MEAN CELL VOLUME 88.1 fl (80.0-94.0); MEAN CORPUSCULAR HGB CONC 31.8 g/dL (33.0-37.0); RBC 3.12 Mil/uL (4.40-5.90); RED CELL DISTRIBUTION WIDTH 19.1 % (11.5-14.5); WHITE BLOOD COUNT 2.2 K/uL (4.8-10.8)
[2018-05-10] MEDS: Pantoprazole 40 MG in Sodium Chloride 0.9% 100 ML IV SCH ×3 (02:00→06:56)
[2018-05-10 05:48] LABS: BASO % 1.5 % (0.0-2.0); EOS # 0.1 K/uL (0.0-0.7); EOS % 3.9 % (0.0-4.0); HEMOGLOBIN 8.3 g/dL (12.0-18.0); LYMPH # 0.5 K/uL (1.0-4.3); LYMPH % 22.9 % (20.0-40.0); MEAN CELL VOLUME 86.3 fl (80.0-94.0); MEAN CORPUSCULAR HGB CONC 32.5 g/dL (33.0-37.0); MEAN PLATELET VOLUME 7.4 fl (7.2-11.7); MONO # 0.2 K/uL (0.0-0.8); NEUT # 1.4 K/uL (1.8-7.0); NEUT % 62.7 % (50.0-75.0); RBC 2.96 Mil/uL (4.40-5.90); RED CELL DISTRIBUTION WIDTH 19.5 % (11.5-14.5); WHITE BLOOD COUNT 2.2 K/uL (4.8-10.8)
[2018-05-10 05:53] LABS: ALB/GLOB RATIO 0.7 (1.0-2.1); ALBUMIN 2.6 g/dL (3.5-5.0); ALT/SGPT 45 U/L (21-72); AST/SGOT 81 U/L (17-59); BLOOD UREA NITROGEN 11 mg/dl (9-20); CALCIUM 7.7 mg/dL (8.4-10.2); GFR NON-AFRICAN AMERICAN > 60
[2018-05-10] MEDS ORDERED: Sodium Chloride 0.9% 1,000 ML IV ONE (08:40)
[2018-05-10] MEDS ORDERED: Propofol 10 mg/ml Inj (20 ML) ONE (08:51)
[2018-05-10 09:29] VITALS: O2SAT 100
--- NOTE | 2018-05-10 12:03 | CP.PCM.DIS ---
<Josselyn Lucas - Last Filed: 05/10/18 12:44> Provider - Provider Date of Admission: 05/07/18 22:31 Attending physician: Chong Cummins Time Spent in preparation of Discharge (in minutes): 35 Diagnosis - Discharge Diagnosis (1) Hematemesis Status: Acute (2) Anemia Status: Chronic Hospital Course - Lab Results Lab Results: Most Recent Lab Values WBC 2.2 K/uL (4.8-10.8) L 05/10/18 04:20 RBC 2.96 Mil/uL (4.40-5.90) L 05/10/18 04:20 Hgb 8.3 g/dL (12.0-18.0) L 05/10/18 04:20 Hct 25.5 % (35.0-51.0) L 05/10/18 04:20 MCV 86.3 fl (80.0-94.0) 05/10/18 04:20 MCH 28.0 pg (27.0-31.0) 05/10/18 04:20 MCHC 32.5 g/dL (33.0-37.0) L 05/10/18 04:20 RDW 19.5 % (11.5-14.5) H 05/10/18 04:20 Plt Count 54 K/uL (130-400) L 05/10/18 04:20 MPV 7.4 fl (7.2-11.7) 05/10/18 04:20 Neut % (Auto) 62.7 % (50.0-75.0) 05/10/18 04:20 Lymph % (Auto) 22.9 % (20.0-40.0) 05/10/18 04:20 [place] % (Auto) 9.0 % (0.0-10.0) 05/10/18 04:20 Eos % (Auto) 3.9 % (0.0-4.0) 05/10/18 04:20 Baso % (Auto) 1.5 % (0.0-2.0) 05/10/18 04:20 Neut # (Auto) 1.4 K/uL (1.8-7.0) L 05/10/18 04:20 Lymph # (Auto) 0.5 K/uL (1.0-4.3) L 05/10/18 04:20 [place] # (Auto) 0.2 K/uL (0.0-0.8) 05/10/18 04:20 Eos # (Auto) 0.1 K/uL (0.0-0.7) 05/10/18 04:20 Baso # (Auto) 0.0 K/uL (0.0-0.2) 05/10/18 04:20 PT 17.6 Seconds (9.8-13.1) H 05/07/18 21:50 INR 1.5 05/07/18 21:50 APTT 35.9 Seconds (25.6-37.1) 05/07/18 21:50 Sodium 138 mmol/l (132-148) 05/10/18 04:20 Potassium 3.8 MMOL/L (3.6-5.0) 05/10/18 04:20 Chloride 110 mmol/L (98-107) H 05/10/18 04:20 Carbon Dioxide 21 mmol/L (22-30) L 05/10/18 04:20 Anion Gap 11 (10-20) 05/10/18 04:20 BUN 11 mg/dl (9-20) 05/10/18 04:20 Creatinine 0.5 mg/dl (0.8-1.5) L 05/10/18 04:20 Est GFR ( Amer) > 60 05/10/18 04:20 Est GFR (Non-Af Amer) > 60 05/10/18 04:20 POC Glucose (mg/dL) 143 mg/dL (65-110) H 05/10/18 11:31 Random Glucose 99 mg/dL (75-110) 05/10/18 04:20 Calcium 7.7 mg/dL (8.4-10.2) L 05/10/18 04:20 Phosphorus 3.1 mg/dl (2.5-4.5) 05/09/18 04:30 Magnesium 1.5 MG/DL (1.6-2.3) L 05/10/18 04:20 Total Bilirubin 1.7 mg/dl (0.2-1.3) H 05/10/18 04:20 AST 81 U/L (17-59) H 05/10/18 04:20 ALT 45 U/L (21-72) 05/10/18 04:20 Alkaline Phosphatase 183 U/L (38-126) H D 05/10/18 04:20 Ammonia 98 umo/L (16-60) H* 05/10/18 04:20 Total Protein 6.6 G/DL (6.3-8.2) 05/10/18 04:20 Albumin 2.6 g/dL (3.5-5.0) L 05/10/18 04:20 Globulin 4.0 gm/dL (2.2-3.9) H 05/10/18 04:20 Albumin/Globulin Ratio 0.7 (1.0-2.1) L 05/10/18 04:20 Lipase 256 U/L (23-300) 05/07/18 23:56 Urine Color Yellow (YELLOW) 05/07/18 22:50 Urine Clarity Cloudy (Clear) 05/07/18 22:50 Urine pH 6.0 (5.0-8.0) 05/07/18 22:50 Ur Specific [place] 1.017 (1.003-1.030) 05/07/18 22:50 Urine Protein 30 mg/dL (NEGATIVE) 05/07/18 22:50 Urine Glucose (UA) Neg mg/dL (Normal) 05/07/18 22:50 Urine Ketones Trace mg/dL (NEGATIVE) 05/07/18 22:50 Urine Blood Small (NEGATIVE) 05/07/18 22:50 Urine Nitrate Negative (NEGATIVE) 05/07/18 22:50 Urine Bilirubin Negative (NEGATIVE) 05/07/18 22:50 Urine Urobilinogen 4.0 mg/dL (0.2-1.0) 05/07/18 22:50 Ur Leukocyte Esterase Neg [place]/uL (Negative) 05/07/18 22:50 Urine RBC (Auto) 5 /hpf (0-3) H 05/07/18 22:50 Urine Microscopic WBC 1 /hpf (0-5) 05/07/18 22:50 Alcohol, Quantitative 153 mg/dl (0-10) H 05/07/18 21:50 Blood Type O POSITIVE 05/07/18 21:50 Antibody Screen Negative 05/07/18 21:50 Crossmatch See Detail 05/07/18 21:50 BBK History Checked Patient has bt 05/07/18 21:50 - Hospital Course Hospital Course: 52 y/o male with PMHx of ETOH abuse, unwitnessed seizures, cirrhosis (s/p TIPS), hepatic encephalopathy present to the ED complaining of vomiting blood. Pt was noted to have hemoglobin of 6.5 (1 week prior, his hg was 8.4). Pt was hemodynamically stable. He was transfused 2 unit PRBC and started on a PPI drip. GI was consulted and pt had endoscopy on 05/10 which was significant for multiple erosive gastropathy and there was no intervention. Pt's hemoglobin post transfusion was 8.3. He did not have ny more episodes of bloody vomiting during his entire hospital stay. Patient was evaluated by physical therapy and recommendations were for Outpatient PT for 3 days, 3-5 x/week. Pt was discharged on Omeprazole 40mg PO BID x 4 weeks. Appt scheduled for PT. On day of discharge, pt was tolerating a regular diet and ambulating with a roller walker. Discharge Exam - Head Exam Head Exam: ATRAUMATIC - Eye Exam Eye Exam: Normal appearance. absent: Scleral icterus - ENT Exam ENT Exam: Mucous Membranes Moist - Respiratory Exam Respiratory Exam: NORMAL BREATHING PATTERN. absent: Accessory Muscle Use, Rales, Wheezes, Stridor - Cardiovascular Exam Cardiovascular Exam: REGULAR RHYTHM, +S1, +S2. absent: Systolic Murmur - GI/Abdominal Exam GI & Abdominal Exam: Normal Bowel Sounds, Soft. absent: Tenderness - Extremities Exam Extremities exam: normal capillary refill, normal inspection, pedal pulses present - Neurological Exam Neurological exam: Alert, Oriented x3 - Psychiatric Exam Psychiatric exam: Normal Affect - Skin Skin Exam: Normal Color Discharge Plan - Discharge Medications Prescriptions: Folic Acid 1 mg PO DAILY #30 tab Levetiracetam [Keppra] 500 mg PO BID #60 tablet Omeprazole 40 mg PO BID 30 Days #60 capsule. Thiamine [Vitamin B1 Tab] 100 mg PO DAILY #30 tab - Follow Up Plan Condition: FAIR Disposition: HOME/ ROUTINE Instructions: Gastrointestinal Bleeding (DC), Anemia of Chronic Disease (DC) Additional Instructions: follow up with pmd in 1 week outpatient PT dept appt. 05/19/18 12:00pm Referrals: Cady Son MD [Family Provider] - Elvin Swartz MD [Staff Provider] - Sandra Patel - Last Filed: 05/10/18 17:33> Provider - Provider Date of Admission: 05/07/18 22:31 Attending physician: Chong Cummins [facility] Hospital Course - Lab Results Lab Results: Most Recent Lab Values WBC 2.2 K/uL (4.8-10.8) L 05/10/18 04:20 RBC 2.96 Mil/uL (4.40-5.90) L 05/10/18 04:20 Hgb 8.3 g/dL (12.0-18.0) L 05/10/18 04:20 Hct 25.5 % (35.0-51.0) L 05/10/18 04:20 MCV 86.3 fl (80.0-94.0) 05/10/18 04:20 MCH 28.0 pg (27.0-31.0) 05/10/18 04:20 MCHC 32.5 g/dL (33.0-37.0) L 05/10/18 04:20 RDW 19.5 % (11.5-14.5) H 05/10/18 04:20 Plt Count 54 K/uL (130-400) L 05/10/18 04:20 MPV 7.4 fl (7.2-11.7) 05/10/18 04:20 Neut % (Auto) 62.7 % (50.0-75.0) 05/10/18 04:20 Lymph % (Auto) 22.9 % (20.0-40.0) 05/10/18 04:20 [place] % (Auto) 9.0 % (0.0-10.0) 05/10/18 04:20 Eos % (Auto) 3.9 % (0.0-4.0) 05/10/18 04:20 Baso % (Auto) 1.5 % (0.0-2.0) 05/10/18 04:20 Neut # (Auto) 1.4 K/uL (1.8-7.0) L 05/10/18 04:20 Lymph # (Auto) 0.5 K/uL (1.0-4.3) L 05/10/18 04:20 [place] # (Auto) 0.2 K/uL (0.0-0.8) 05/10/18 04:20 Eos # (Auto) 0.1 K/uL (0.0-0.7) 05/10/18 04:20 Baso # (Auto) 0.0 K/uL (0.0-0.2) 05/10/18 04:20 PT 17.6 Seconds (9.8-13.1) H 05/07/18 21:50 INR 1.5 05/07/18 21:50 APTT 35.9 Seconds (25.6-37.1) 05/07/18 21:50 Sodium 138 mmol/l (132-148) 05/10/18 04:20 Potassium 3.8 MMOL/L (3.6-5.0) 05/10/18 04:20 Chloride 110 mmol/L (98-107) H 05/10/18 04:20 Carbon Dioxide 21 mmol/L (22-30) L 05/10/18 04:20 Anion Gap 11 (10-20) 05/10/18 04:20 BUN 11 mg/dl (9-20) 05/10/18 04:20 Creatinine 0.5 mg/dl (0.8-1.5) L 05/10/18 04:20 Est GFR ( Amer) > 60 05/10/18 04:20 Est GFR (Non-Af Amer) > 60 05/10/18 04:20 POC Glucose (mg/dL) 143 mg/dL (65-110) H 05/10/18 11:31 Random Glucose 99 mg/dL (75-110) 05/10/18 04:20 Calcium 7.7 mg/dL (8.4-10.2) L 05/10/18 04:20 Phosphorus 3.1 mg/dl (2.5-4.5) 05/09/18 04:30 Magnesium 1.5 MG/DL (1.6-2.3) L 05/10/18 04:20 Total Bilirubin 1.7 mg/dl (0.2-1.3) H 05/10/18 04:20 AST 81 U/L (17-59) H 05/10/18 04:20 ALT 45 U/L (21-72) 05/10/18 04:20 Alkaline Phosphatase 183 U/L (38-126) H D 05/10/18 04:20 Ammonia 98 umo/L (16-60) H* 05/10/18 04:20 Total Protein 6.6 G/DL (6.3-8.2) 05/10/18 04:20 Albumin 2.6 g/dL (3.5-5.0) L 05/10/18 04:20 Globulin 4.0 gm/dL (2.2-3.9) H 05/10/18 04:20 Albumin/Globulin Ratio 0.7 (1.0-2.1) L 05/10/18 04:20 Lipase 256 U/L (23-300) 05/07/18 23:56 Urine Color Yellow (YELLOW) 05/07/18 22:50 Urine Clarity Cloudy (Clear) 05/07/18 22:50 Urine pH 6.0 (5.0-8.0) 05/07/18 22:50 Ur Specific [place] 1.017 (1.003-1.030) 05/07/18 22:50 Urine Protein 30 mg/dL (NEGATIVE) 05/07/18 22:50 Urine Glucose (UA) Neg mg/dL (Normal) 05/07/18 22:50 Urine Ketones Trace mg/dL (NEGATIVE) 05/07/18 22:50 Urine Blood Small (NEGATIVE) 05/07/18 22:50 Urine Nitrate Negative (NEGATIVE) 05/07/18 22:50 Urine Bilirubin Negative (NEGATIVE) 05/07/18 22:50 Urine Urobilinogen 4.0 mg/dL (0.2-1.0) 05/07/18 22:50 Ur Leukocyte Esterase Neg [place]/uL (Negative) 05/07/18 22:50 Urine RBC (Auto) 5 /hpf (0-3) H 05/07/18 22:50 Urine Microscopic WBC 1 /hpf (0-5) 05/07/18 22:50 Alcohol, Quantitative 153 mg/dl (0-10) H 05/07/18 21:50 Blood Type O POSITIVE 05/07/18 21:50 Antibody Screen Negative 05/07/18 21:50 Crossmatch See Detail 05/07/18 21:50 BBK History Checked Patient has bt 05/07/18 21:50 Attending/Attestation - Attestation I have personally seen and examined this patient.: Yes I have fully participated in the care of the patient.: Yes I have reviewed all pertinent clinical information, including history, physical exam and plan: Yes Notes (Text): Upper GI bleed due to Alcohol Gastritis - s/p EGD done by DR Swartz- no stigmata of recent bleeding - cont PPI - toleratig PO diet Alcohol Abuse - no signs of Alcohol withdrawal - pt alert, oriented - cont Thiamine - counseledto stop ETOH, AA referral -PT consulted - rec Rolling walker and outpt PT 2x per week
[2018-05-10] MEDS: Magnesium Oxide 400 mg Tab UD PO SCH (12:34)
[2018-05-10 12:44] VITALS: BP 127/73; PULSE 78; RESP 20; TEMP 98.1
--- NOTE | 2018-05-10 13:24 | CP.PCM.PN ---
Subjective - Date & Time of Evaluation Date of Evaluation: 05/10/18 Time of Evaluation: 08:00 - Subjective Subjective: GI Progress Note- Dr. Swartz Patient seen and examined at bedside. NPO after MN for upper endoscopy today. +OOB w/ PT. negative: F/C/CP/SOB N/V/D/BRBPR/Hematemesis. No new complaints Objective - Vital Signs/Intake and Output Vital Signs (last 24 hours): Temp Pulse Resp BP Pulse Ox 98.1 F 78 20 127/73 100 05/10/18 12:43 05/10/18 12:43 05/10/18 12:43 05/10/18 12:43 05/10/18 12:43 Intake and Output: 05/10/18 05/10/18 06:59 18:59 Intake Total 2198 Output Total 1800 Balance 398 - Medications Medications: Current Medications Pantoprazole Sodium 40 mg/ (Sodium Chloride) 100 mls @ 20 mls/hr IV Q5H [facility] Last Admin: 05/10/18 06:56 Dose: 20 mls/hr Lactulose (Enulose) 20 gm PO QID [facility] Last Admin: 05/09/18 21:29 Dose: 20 gm Levetiracetam (Keppra) 500 mg PO BID [facility] Last Admin: 05/10/18 12:33 Dose: 500 mg Magnesium Oxide (Mag-Ox) 400 mg PO DAILY [facility] Last Admin: 05/10/18 12:34 Dose: 400 mg Ondansetron HCl (Zofran Inj) 4 mg IVP Q4 PRN PRN Reason: Nausea/Vomiting Last Admin: 05/08/18 00:06 Dose: 4 mg - Labs Labs: 05/10/18 04:20 05/10/18 04:20 PT 17.6 Seconds (9.8-13.1) H 05/07/18 21:50 INR 1.5 05/07/18 21:50 APTT 35.9 Seconds (25.6-37.1) 05/07/18 21:50 - Constitutional Appears: Non-toxic, No Acute Distress, Cachectic, Chronically Ill - Head Exam Head Exam: ATRAUMATIC - Eye Exam Eye Exam: EOMI. absent: Scleral icterus - ENT Exam ENT Exam: Mucous Membranes Moist - Respiratory Exam Respiratory Exam: NORMAL BREATHING PATTERN. absent: Accessory Muscle Use, Respiratory Distress - Cardiovascular Exam Cardiovascular Exam: +S1, +S2. absent: Bradycardia, Tachycardia - GI/Abdominal Exam GI & Abdominal Exam: Distended (baseline), Soft. absent: Firm, Guarding, Rigid, Tenderness, Rebound - Extremities Exam Extremities Exam: absent: Calf Tenderness - Neurological Exam Neurological Exam: Alert, Awake, Oriented x3 - Psychiatric Exam Psychiatric exam: Normal Affect - Skin Skin Exam: Intact, Warm Assessment and Plan - Assessment and Plan (Free Text) Assessment: 53M hx of ETOH abuse, s/p TIPS; currently r/o GI bleed, s/p EGD POD#0 No signs of active bleeding, gastritis, hiatal hernia. no biopsies taken due to recent biopsies and low PLT count. Plan: - no signs of upper GI bleed - follow up in GI clinic as needed - Cleared for discharge from GI standpoint - discussed w/ Dr. Swartz GI attending PGY2
== END 2018-05-10 15:20 | disposition home or self-care (01) | DRG 174 ==
LOC: H.ER 20:16 → H.ERHOLD 22:31 → H.TEL 05-08 10:21
PROVIDERS: ADMIT Internal Medicine; ATTEND Internal Medicine
PROC: 30233N1 Transfusion of Nonautologous Red Blood Cells into Peripheral Vein, Percutaneous Approach (ICD-10-PCS; 2018-05-08)
PROC: 0DJ08ZZ Inspection of Upper Intestinal Tract, Via Natural or Artificial Opening Endoscopic (ICD-10-PCS; principal; 2018-05-10 08:00)
DX: K29.21 Alcoholic gastritis with bleeding (principal); K70.30 Alcoholic cirrhosis of liver without ascites; D62 Acute posthemorrhagic anemia; G31.2 Degeneration of nervous system due to alcohol; E83.42 Hypomagnesemia; F10.129 Alcohol abuse with intoxication, unspecified; G40.909 Epilepsy, unspecified, not intractable, without status epilepticus; K25.9 Gastric ulcer, unspecified as acute or chronic, without hemorrhage or perforation; Y90.6 Blood alcohol level of 120-199 mg/100 ml; Z87.891 Personal history of nicotine dependence; E72.20 Disorder of urea cycle metabolism, unspecified; G89.29 Other chronic pain; K31.9 Disease of stomach and duodenum, unspecified; Z88.6 Allergy status to analgesic agent; I10 Essential (primary) hypertension; F41.9 Anxiety disorder, unspecified; Z86.718 Personal history of other venous thrombosis and embolism

== ENCOUNTER 2018-05-10 16:35 | Emergency (ER) | payer MEDICAID ==
[2018-05-10 16:35] VITALS: BMI 24.0
[2018-05-10 16:40] VITALS: O2SAT 100
[2018-05-10] MEDS ORDERED: Sodium Chloride 0.9% 1,000 ML IV STA (17:14)
[2018-05-10 18:10] LABS: BASO % 1.2 % (0.0-2.0); EOS # 0.1 K/uL (0.0-0.7); EOS % 4.8 % (0.0-4.0); HEMOGLOBIN 8.8 g/dL (12.0-18.0); LYMPH # 0.4 K/uL (1.0-4.3); LYMPH % 17.7 % (20.0-40.0); MEAN CELL VOLUME 87.6 fl (80.0-94.0); MEAN CORPUSCULAR HEMOGLOBIN 27.7 pg (27.0-31.0); MEAN CORPUSCULAR HGB CONC 31.7 g/dL (33.0-37.0); MEAN PLATELET VOLUME 7.9 fl (7.2-11.7); MONO # 0.2 K/uL (0.0-0.8); MONO % 9.3 % (0.0-10.0); NEUT # 1.5 K/uL (1.8-7.0); NRBC % 0.1 % (0.0-0.0); RBC 3.18 Mil/uL (4.40-5.90); RED CELL DISTRIBUTION WIDTH 19.6 % (11.5-14.5); WHITE BLOOD COUNT 2.2 K/uL (4.8-10.8)
[2018-05-10 18:14] VITALS: BP 115/68; PULSE 68; RESP 19; TEMP 97.7
[2018-05-10 18:19] LABS: INR 1.3; PROTHROMBIN TIME 15.1 Seconds (9.8-13.1)
[2018-05-10 18:22] LABS: PARTIAL THROMBOPLASTIN TIME 33.7 Seconds (25.6-37.1)
[2018-05-10 18:39] LABS: ALB/GLOB RATIO 0.7 (1.0-2.1); ALBUMIN 3.2 g/dL (3.5-5.0); ALT/SGPT 45 U/L (21-72); AST/SGOT 87 U/L (17-59); BLOOD UREA NITROGEN 10 mg/dl (9-20); CALCIUM 8.2 mg/dL (8.4-10.2); GFR NON-AFRICAN AMERICAN > 60
--- NOTE | 2018-05-10 19:35 | ED PDOC ---
HPI:Nausea, Vomiting, Diarrhea Time Seen by Provider: 05/10/18 16:44 Chief Complaint (Nursing): GI Problem Chief Complaint (Provider): GI Problem History Per: Patient, EMS History/Exam Limitations: no limitations Onset/Duration Of Symptoms: Sudden Onset Current Symptoms Are (Timing): Still Present Additional Complaint(s): 53 year old male, well-known to ED for multiple visits, arrive via EMS for an evaluation of vomiting with blood prior to arrival. As per EMS, some bloody vomit could be visualized beside patient when he was picked up at [place]. Of note, patient was discharged earlier today for a GI bleed. Otherwise, he denies any melena, bloody stools, or rectal bleeding. PCP: Dr. Chanelle Rowe Past Medical History Reviewed: Historical Data, Nursing Documentation, Vital Signs Vital Signs: Last Vital Signs Temp 97.7 F 05/10/18 18:13 Pulse 68 05/10/18 18:13 Resp 19 05/10/18 18:13 BP 115/68 05/10/18 18:13 Pulse Ox 100 05/10/18 16:38 - Medical History PMH: Anemia, Anxiety, Back Problems (herniated disc), Deep Vein Thrombosis, Fractures, Gastritis, Gall Bladder Disease (Cholelithiasis), HTN, Pancreatitis, Pneumonia, Seizures, Chronic Pain (left shoulder) Denies: CHF, HIV, Hypercholesterolemia, Chronic Kidney Disease, Sexually Transmitted Disease - Surgical History Surgical History: Endoscopy - Family History Family History: States: Unknown Family Hx - Immunization History Hx Tetanus Toxoid Vaccination: Yes Hx Influenza Vaccination: Yes Hx Pneumococcal Vaccination: Yes - Home Medications Home Medications: Ambulatory Orders Medication Instructions Recorded RX: Lactulose [Enulose] 10 gm PO BID #30 ml 04/09/18 RX: Folic Acid 1 mg PO DAILY #30 tab 05/10/18 RX: Levetiracetam [Keppra] 500 mg PO BID #60 tablet 05/10/18 RX: Omeprazole 40 mg PO BID 30 Days #60 capsule. 05/10/18 RX: Thiamine [Vitamin B1 Tab] 100 mg PO DAILY #30 tab 05/10/18 - Allergies Allergies/Adverse Reactions: Allergies Allergy/AdvReac Type Severity Reaction Status Date / Time aspirin AdvReac GI Bleed Verified 05/07/18 20:35 ibuprofen [From Motrin] AdvReac GI Bleed Verified 05/07/18 20:35 naproxen AdvReac GI bleed Verified 05/07/18 20:35 NSAIDS (Non-Steroidal AdvReac GI bleed Verified 05/07/18 20:35 Anti-Inflamma Review of Systems ROS Statement: Except As Marked, All Systems Reviewed And Found Negative Gastrointestinal: Positive for: Hematemesis. Negative for: Melena, Hematochezia, Other (BRBPR) Physical Exam - Reviewed Nursing Documentation Reviewed: Yes Vital Signs Reviewed: Yes - Physical Exam Appears: Positive for: No Acute Distress Head Exam: Positive for: ATRAUMATIC, NORMAL INSPECTION, NORMOCEPHALIC Skin: Positive for: Normal Color Eye Exam: Positive for: Normal appearance ENT: Positive for: Normal ENT Inspection Neck: Positive for: Normal Cardiovascular/Chest: Positive for: Regular Rate, Rhythm, Chest Non Tender Respiratory: Positive for: Normal Breath Sounds. Negative for: Wheezing, Respiratory Distress Gastrointestinal/Abdominal: Positive for: Normal Exam, Soft. Negative for: Tenderness Back: Positive for: Normal Inspection. Negative for: L CVA Tenderness, R CVA Tenderness Extremity: Positive for: Normal ROM (upper/lower) Neurologic/Psych: Positive for: Alert, Oriented. Negative for: Motor/Sensory Deficits - Laboratory Results Result Diagrams: 05/10/18 18:01 05/10/18 18:01 - ECG O2 Sat by Pulse Oximetry: 100 (RA) Pulse Ox Interpretation: Normal - Progress ED Course And Treament: On re-evaluation, pt. requesting food. Gait steady with walker. Medical Decision Making Medical Decision Making: Initial Impression: Hematemesis Initial Plan: * Labs * IV fluids * Protonix inj 80mg IVP * Zofran inj 4mg IVP Scribe Attestation: Documented by Dulce Hoffmann, acting as a scribe for Olaf Fernandez MD. Provider Scribe Attestation: All medical record entries made by the Scribe were at my direction and personally dictated by me. I have reviewed the chart and agree that the record accurately reflects my personal performance of the history, physical exam, medical decision making, and the department course for this patient. I have also personally directed, reviewed, and agree with the discharge instructions and disposition. Disposition - Clinical Impression Clinical Impression: Vomiting, Alcohol intoxication - Patient ED Disposition Is Patient to be Admitted: No - Disposition Referrals: [facility] [Outside] Disposition: Routine/Home Disposition Time: 19:20 Condition: STABLE Additional Instructions: KINDRA MARTINI, thank you for letting us take care of you today. Your provider was Brody Lu III, DO and you were treated for VOMITING. The emergency medical care you received today was directed at your acute symptoms. If you were prescribed any medication, please fill it and take as directed. It may take several days for your symptoms to resolve. Return to the Emergency Department if your symptoms worsen, do not improve, or if you have any other problems. Please contact your doctor or call one of the physicians/clinics you have been referred to that are listed on the Patient Visit Information form that is included in your discharge packet. Bring any paperwork you were given at discharge with you along with any medications you are taking to your follow up visit. Our treatment cannot replace ongoing medical care by a primary care provider outside of the emergency department. Thank you for allowing the [facility] team to be part of your care today. If you had an X-Ray or CT scan: A Radiologist will review the ED reading if any change in treatment is needed we will contact you. If you had a blood, urine, or wound culture: It will take several days for the results, if any change in treatment is needed we will contact you. If you had an STI test: It will take 48 hours for the results. Please call after 1 week if you have not heard back. Instructions: Nausea and Vomiting, Adult (DC), Alcohol Abuse and Alcoholism (DC) Forms: [employer] (Turkmen) Print Language: SPANISH
[2018-05-11] MEDS ORDERED: Sterile Water 10 ML IV ONE (10:42)
== END 2018-05-10 19:50 | disposition home or self-care (01) ==
LOC: H.ER 16:35
DX: R11.10 Vomiting, unspecified (principal); F10.129 Alcohol abuse with intoxication, unspecified
CPT/HCPCS: 80053; 80320; 85025; 85610; 85730; 86850; 86900; 96374; 96375; 99285; C9113; J2405; J7030

== ENCOUNTER 2018-05-11 03:22 | Emergency (ER) | payer MEDICAID ==
[2018-05-11 03:22] VITALS: BMI 24.0
[2018-05-11 03:41] VITALS: TEMP 97.9
--- NOTE | 2018-05-11 03:51 | ED PDOC ---
HPI: Psych/Substance Abuse Time Seen by Provider: 05/11/18 03:36 Chief Complaint (Nursing): Alcohol Ingestion Chief Complaint (Provider): Alcohol Ingestion History/Exam Limitations: no limitations Onset/Duration Of Symptoms: Hrs (HOME OFFICE REPRESENTATIVE) Current Symptoms Are (Timing): Still Present Additional Complaint(s): 53 year old male who is well known to this provider and ER with a history of seizures presents to the ED for possible ETOH intoxication. No further complaints. Past Medical History Reviewed: Historical Data, Nursing Documentation, Vital Signs Vital Signs: Last Vital Signs Temp 97.9 F 05/11/18 03:40 Pulse 86 05/11/18 03:40 Resp 16 05/11/18 03:40 BP 104/56 L 05/11/18 03:40 Pulse Ox 98 05/11/18 03:40 - Medical History PMH: Anemia, Anxiety, Back Problems (herniated disc), Deep Vein Thrombosis, Fractures, Gastritis, Gall Bladder Disease (Cholelithiasis), HTN, Pancreatitis, Pneumonia, Seizures, Chronic Pain (left shoulder) Denies: CHF, HIV, Hypercholesterolemia, Chronic Kidney Disease, Sexually Transmitted Disease - Surgical History Surgical History: Endoscopy - Family History Family History: States: Unknown Family Hx - Immunization History Hx Tetanus Toxoid Vaccination: Yes Hx Influenza Vaccination: Yes Hx Pneumococcal Vaccination: Yes - Home Medications Home Medications: Ambulatory Orders Medication Instructions Recorded Lactulose [Enulose] 10 gm PO BID #30 ml 04/09/18 Folic Acid 1 mg PO DAILY #30 tab 05/10/18 Levetiracetam [Keppra] 500 mg PO BID #60 tablet 05/10/18 Omeprazole 40 mg PO BID 30 Days #60 capsule. 05/10/18 Thiamine [Vitamin B1 Tab] 100 mg PO DAILY #30 tab 05/10/18 - Allergies Allergies/Adverse Reactions: Allergies Allergy/AdvReac Type Severity Reaction Status Date / Time aspirin AdvReac GI Bleed Verified 05/07/18 20:35 ibuprofen [From Motrin] AdvReac GI Bleed Verified 05/07/18 20:35 naproxen AdvReac GI bleed Verified 05/07/18 20:35 NSAIDS (Non-Steroidal AdvReac GI bleed Verified 05/07/18 20:35 Anti-Inflamma Review of Systems ROS Statement: Except As Marked, All Systems Reviewed And Found Negative Physical Exam - Reviewed Nursing Documentation Reviewed: Yes Vital Signs Reviewed: Yes - Physical Exam Appears: Positive for: Non-toxic, No Acute Distress Head Exam: Positive for: ATRAUMATIC, NORMOCEPHALIC Skin: Positive for: Normal Color, Warm, Dry Eye Exam: Positive for: EOMI, Normal appearance, PERRL Neck: Positive for: Normal, Painless ROM Cardiovascular/Chest: Positive for: Regular Rate, Rhythm. Negative for: Murmur Respiratory: Positive for: Normal Breath Sounds. Negative for: Respiratory Distress Gastrointestinal/Abdominal: Positive for: Normal Exam, Soft. Negative for: Tenderness Back: Positive for: Normal Inspection Extremity: Positive for: Normal ROM (upper and lower). Negative for: Pedal Edema, Deformity Neurologic/Psych: Positive for: Alert, Oriented - ECG O2 Sat by Pulse Oximetry: 98 (RA) Pulse Ox Interpretation: Normal Medical Decision Making Medical Decision Making: Time: 347 Initial Impression: 53 yo with possible ETOH intoxication Initial Plan: --labs Time: 59 --Patient is clinically sober. Patient is medically cleared for discharge. Scribe Attestation: Documented by Sejal Rodriguez, acting as a scribe for Olaf Fernandez MD Provider Scribe Attestation: All medical record entries made by the Scribe were at my direction and perso carie dictated by me. I have reviewed the chart and agree that the record accurately reflects my personal performance of the history, physical exam, medical decision making, and the department course for this patient. I have also personally directed, reviewed, and agree with the discharge instructions and disposition. Disposition - Clinical Impression Clinical Impression: Alcohol abuse with uncomplicated intoxication - Disposition Disposition Time: 05:59 Condition: STABLE Instructions: Alcohol Abuse and Alcoholism (DC) Forms: [id number] (Setsw[place])
[2018-05-11 06:50] VITALS: BP 141/64; PULSE 89; RESP 18; O2SAT 96
== END 2018-05-11 06:54 | disposition home or self-care (01) ==
LOC: H.ER 03:22
DX: F10.120 Alcohol abuse with intoxication, uncomplicated (principal)

== ENCOUNTER 2018-05-11 07:41 | Emergency (ER) | payer MEDICAID ==
[2018-05-11 07:41] VITALS: BMI 24.0
[2018-05-11 07:50] VITALS: BP 112/58; PULSE 101; RESP 17; TEMP 97.7; O2SAT 100
[2018-05-11] MEDS ORDERED: Sodium Chloride 0.9% 1,000 ML IV STA (08:07)
--- NOTE | 2018-05-11 08:49 | ED PDOC ---
HPI: Abdomen Time Seen by Provider: 05/11/18 08:00 Chief Complaint (Nursing): Abdominal Pain Chief Complaint (Provider): Abdominal Pain History Per: Patient History/Exam Limitations: no limitations Onset/Duration Of Symptoms: Hrs Current Symptoms Are (Timing): Still Present Associated Symptoms: Vomiting Additional Complaint(s): Shreyas Sepulveda is a 53 year old male, well known to the ED for frequent visits, with a past medical history of hypertension and seizures who is presenting to the ED for evaluation of abdominal pain and blood in vomitus. Patient has been here 2 times before in the last 24 hours for similar complaints. He is also requesting a Keppra refill. Patient offers no other medical complaints at this time and denies any chest pain, shortness of breath or fevers. PMD: none provided Past Medical History Reviewed: Historical Data, Nursing Documentation, Vital Signs Vital Signs: Last Vital Signs Temp 97.7 F 05/11/18 07:49 Pulse 101 H 05/11/18 07:49 Resp 17 05/11/18 07:49 BP 112/58 L 05/11/18 07:49 Pulse Ox 100 05/11/18 07:49 - Medical History PMH: Anemia, Anxiety, Back Problems (herniated disc), Deep Vein Thrombosis, Fractures, Gastritis, Gall Bladder Disease (Cholelithiasis), HTN, Pancreatitis, Pneumonia, Seizures, Chronic Pain (left shoulder) Denies: CHF, HIV, Hypercholesterolemia, Chronic Kidney Disease, Sexually Transmitted Disease - Surgical History Surgical History: Endoscopy - Family History Family History: States: Unknown Family Hx - Social History Current smoker - smoking cessation education provided: Yes Alcohol: > 2 Drinks/Day Drugs: Denies - Immunization History Hx Tetanus Toxoid Vaccination: Yes Hx Influenza Vaccination: Yes Hx Pneumococcal Vaccination: Yes - Home Medications Home Medications: Ambulatory Orders Medication Instructions Recorded Lactulose [Enulose] 10 gm PO BID #30 ml 04/09/18 Folic Acid 1 mg PO DAILY #30 tab 05/10/18 Levetiracetam [Keppra] 500 mg PO BID #60 tablet 05/10/18 Omeprazole 40 mg PO BID 30 Days #60 capsule. 05/10/18 Thiamine [Vitamin B1 Tab] 100 mg PO DAILY #30 tab 05/10/18 - Allergies Allergies/Adverse Reactions: Allergies Allergy/AdvReac Type Severity Reaction Status Date / Time aspirin AdvReac GI Bleed Verified 05/07/18 20:35 ibuprofen [From Motrin] AdvReac GI Bleed Verified 05/07/18 20:35 naproxen AdvReac GI bleed Verified 05/07/18 20:35 NSAIDS (Non-Steroidal AdvReac GI bleed Verified 05/07/18 20:35 Anti-Inflamma Review of Systems ROS Statement: Except As Marked, All Systems Reviewed And Found Negative Cardiovascular: Negative for: Chest Pain Respiratory: Negative for: Shortness of Breath Gastrointestinal: Positive for: Vomiting, Abdominal Pain Physical Exam - Reviewed Nursing Documentation Reviewed: Yes Vital Signs Reviewed: Yes - Physical Exam Appears: Positive for: Non-toxic, No Acute Distress Head Exam: Positive for: ATRAUMATIC, NORMAL INSPECTION, NORMOCEPHALIC Skin: Positive for: Normal Color, Warm, DRY Eye Exam: Positive for: EOMI, Normal appearance, PERRL Cardiovascular/Chest: Positive for: Regular Rate, Rhythm. Negative for: Murmur Respiratory: Positive for: Normal Breath Sounds. Negative for: Respiratory Dis tress Gastrointestinal/Abdominal: Positive for: Normal Exam, Soft. Negative for: Tenderness Neurologic/Psych: Positive for: Alert, Oriented. Negative for: Motor/Sensory Deficits - Laboratory Results Result Diagrams: 05/11/18 09:50 05/11/18 09:50 - ECG O2 Sat by Pulse Oximetry: 100 (RA) Pulse Ox Interpretation: Normal Medical Decision Making Medical Decision Making: Time: 8:18 Plan: --Alcohol Serum --CMP --Magnesium --CBC --IV Fluids --Protonix 40 mg IVP Hgb stable from prior, no vomiting in ED, 12p patient ambulatory and requesting discharge, hungry, no evidence of GI hemorrhage, AMS, alcohol withdrawal or hemodynamic instability at this time. Patient is chronically ill but at his baseline. Scribe Attestation: Documented by, Roxana Wang acting as a scribe for Brody Lu DO. Provider Scribe Attestation: All medical record entries made by the Scribe were at my direction and pers onally dictated by me. I have reviewed the chart and agree that the record accurately reflects my personal performance of the history, physical exam, medical decision making, and the department course for this patient. I have also personally directed, reviewed, and agree with the discharge instructions and disposition. Disposition - Clinical Impression Clinical Impression: Alcohol abuse with intoxication - Patient ED Disposition Is Patient to be Admitted: No - Disposition Disposition: Routine/Home Disposition Time: 12:10 Condition: STABLE Instructions: Acute Abdomen (Belly Pain) Forms: [employer] (Sri Lankan)
[2018-05-11 10:00] LABS: BASO % 1.2 % (0.0-2.0); EOS # 0.2 K/uL (0.0-0.7); EOS % 6.3 % (0.0-4.0); HEMOGLOBIN 8.5 g/dL (12.0-18.0); LYMPH # 0.4 K/uL (1.0-4.3); LYMPH % 16.2 % (20.0-40.0); MEAN CELL VOLUME 87.8 fl (80.0-94.0); MEAN CORPUSCULAR HEMOGLOBIN 27.9 pg (27.0-31.0); MEAN CORPUSCULAR HGB CONC 31.8 g/dL (33.0-37.0); MEAN PLATELET VOLUME 7.1 fl (7.2-11.7); MONO # 0.3 K/uL (0.0-0.8); MONO % 11.5 % (0.0-10.0); NEUT # 1.7 K/uL (1.8-7.0); NEUT % 64.8 % (50.0-75.0); RBC 3.03 Mil/uL (4.40-5.90); WHITE BLOOD COUNT 2.7 K/uL (4.8-10.8)
[2018-05-11 10:26] LABS: ALB/GLOB RATIO 0.7 (1.0-2.1); ALBUMIN 2.9 g/dL (3.5-5.0); ALT/SGPT 54 U/L (21-72); AST/SGOT 95 U/L (17-59); BLOOD UREA NITROGEN 12 mg/dl (9-20); CALCIUM 7.5 mg/dL (8.4-10.2); GFR NON-AFRICAN AMERICAN > 60
== END 2018-05-11 12:15 | disposition home or self-care (01) ==
LOC: H.ER 07:41
DX: F10.129 Alcohol abuse with intoxication, unspecified (principal)
CPT/HCPCS: 80053; 80320; 83735; 85025; 96374; 99283; C9113; J7030

== ENCOUNTER 2018-05-11 17:46 | Emergency (ER) | payer MEDICAID ==
[2018-05-11 17:47] VITALS: BMI 24.0
[2018-05-11 17:53] VITALS: BP 151/79; RESP 20; TEMP 98.1; O2SAT 99
[2018-05-11 18:03] VITALS: PULSE 94
--- NOTE | 2018-05-11 18:12 | ED PDOC ---
HPI: Psych/Substance Abuse Time Seen by Provider: 05/11/18 17:55 Chief Complaint (Nursing): Seizure Chief Complaint (Provider): Seizure History Per: Patient History/Exam Limitations: no limitations Onset/Duration Of Symptoms: Mins Current Symptoms Are (Timing): Better Additional Complaint(s): 53 year old male presents to the ER for an evaluation of seizure. Bystander c gene [phone] who found the patient sleeping on the ground. Patient states he had a seizure. Offers no other complaints at this time and reports he has not taken Keppra. Of note: Patient was discharged earlier from the ER. Patient is at baseline. Past Medical History Reviewed: Historical Data, Nursing Documentation, Vital Signs Vital Signs: Last Vital Signs Temp 98.1 F 05/11/18 17:50 Pulse 94 H 05/11/18 18:03 Resp 20 05/11/18 17:50 BP 151/79 H 05/11/18 17:50 Pulse Ox 99 05/11/18 18:03 - Medical History PMH: Anemia, Anxiety, Back Problems (herniated disc), Deep Vein Thrombosis, Fractures, Gastritis, Gall Bladder Disease (Cholelithiasis), HTN, Pancreatitis, Pneumonia, Seizures, Chronic Pain (left shoulder) Denies: CHF, HIV, Hypercholesterolemia, Chronic Kidney Disease, Sexually Transmitted Disease - Surgical History Surgical History: Endoscopy - Family History Family History: States: Unknown Family Hx - Immunization History Hx Tetanus Toxoid Vaccination: Yes Hx Influenza Vaccination: Yes Hx Pneumococcal Vaccination: Yes - Home Medications Home Medications: Ambulatory Orders Medication Instructions Recorded Lactulose [Enulose] 10 gm PO BID #30 ml 04/09/18 Folic Acid 1 mg PO DAILY #30 tab 05/10/18 Levetiracetam [Keppra] 500 mg PO BID #60 tablet 05/10/18 Omeprazole 40 mg PO BID 30 Days #60 capsule. 05/10/18 Thiamine [Vitamin B1 Tab] 100 mg PO DAILY #30 tab 05/10/18 - Allergies Allergies/Adverse Reactions: Allergies Allergy/AdvReac Type Severity Reaction Status Date / Time aspirin AdvReac GI Bleed Verified 05/11/18 17:49 ibuprofen [From Motrin] AdvReac GI Bleed Verified 05/11/18 17:49 naproxen AdvReac GI bleed Verified 05/11/18 17:49 NSAIDS (Non-Steroidal AdvReac GI bleed Verified 05/11/18 17:49 Anti-Inflamma Review of Systems ROS Statement: Except As Marked, All Systems Reviewed And Found Negative Constitutional: Negative for: Fever, Chills Cardiovascular: Negative for: Chest Pain Respiratory: Negative for: Cough, Shortness of Breath Gastrointestinal: Negative for: Nausea, Vomiting, Abdominal Pain, Diarrhea Neurological: Positive for: Seizures Psych: Negative for: Suicidal ideation (homicidal ideation) Physical Exam - Reviewed Nursing Documentation Reviewed: Yes Vital Signs Reviewed: Yes - Physical Exam Appears: Positive for: No Acute Distress Head Exam: Positive for: ATRAUMATIC, NORMAL INSPECTION, NORMOCEPHALIC Skin: Positive for: Normal Color, Warm, Dry Eye Exam: Positive for: Normal appearance, EOMI, PERRL ENT: Positive for: Normal ENT Inspection Neck: Positive for: Normal, Painless ROM, Supple. Negative for: Decreased ROM Cardiovascular/Chest: Positive for: Regular Rate, Rhythm. Negative for: Tachycardia Respiratory: Positive for: Normal Breath Sounds. Negative for: Decreased Breath Sounds, Wheezing, Respiratory Distress Gastrointestinal/Abdominal: Positive for: Normal Exam, Soft. Negative for: Tenderness Back: Positive for: Normal Inspection Extremity: Positive for: Normal ROM. Negative for: Tenderness, Pedal Edema, De formity Neurologic/Psych: Positive for: Alert, Oriented (x3). Negative for: Motor/Sensory Deficits - ECG O2 Sat by Pulse Oximetry: 99 (RA) Pulse Ox Interpretation: Normal Medical Decision Making Medical Decision Making: Time: 1800 Initial Plan: Glucose, POC Routine Keppra 500mg Finger Stick Reevaluation Scribe Attestation: Documented by Jean Claude Whitmore, acting as a scribe for Lincoln Olivier PA-C Provider Scribe Attestation: All medical record entries made by the Scribe were at my direction and personally dictated by me. I have reviewed the chart and agree that the record accurately reflects my personal performance of the history, physical exam, medical decision making, and the department course for this patient. I have also personally directed, reviewed, and agree with the discharge instructions and disposition. Disposition - Clinical Impression Clinical Impression: Malingering - Patient ED Disposition Is Patient to be Admitted: No - Disposition Referrals: [facility] [Outside] Disposition: Routine/Home Disposition Time: 18:00 Condition: STABLE Instructions: General (DC) Forms: [employer] (Ukrainian)
== END 2018-05-11 22:43 | disposition home or self-care (01) ==
LOC: H.ER 17:46
DX: Z76.5 Malingerer [conscious simulation] (principal)

== ENCOUNTER 2018-05-11 23:31 | Emergency (ER) | payer MEDICAID ==
[2018-05-11 23:31] VITALS: BMI 24.0
[2018-05-12 01:20] VITALS: RESP 16
--- NOTE | 2018-05-12 04:21 | ED PDOC ---
HPI: General Adult Time Seen by Provider: 05/12/18 02:00 Chief Complaint (Nursing): Lower Extremity Problem/Injury Chief Complaint (Provider): none Additional Complaint(s): 53 y/o male presents to ED without acute complaints. Patient well known to ED and provider for bed-seeking behavior. Patient just discharged prior to signing back in. Past Medical History Reviewed: Historical Data, Nursing Documentation, Vital Signs Vital Signs: Last Vital Signs Temp 98.7 F 05/12/18 01:17 Pulse 80 05/12/18 01:17 Resp 16 05/12/18 01:17 BP 138/74 05/12/18 01:17 Pulse Ox 97 05/12/18 01:17 - Medical History PMH: Anemia, Anxiety, Back Problems (herniated disc), Deep Vein Thrombosis, Fractures, Gastritis, Gall Bladder Disease (Cholelithiasis), HTN, Pancreatitis, Pneumonia, Seizures, Chronic Pain (left shoulder) Denies: CHF, HIV, Hypercholesterolemia, Chronic Kidney Disease, Sexually Transmitted Disease - Surgical History Surgical History: Endoscopy - Family History Family History: States: Unknown Family Hx - Immunization History Hx Tetanus Toxoid Vaccination: Yes Hx Influenza Vaccination: Yes Hx Pneumococcal Vaccination: Yes - Home Medications Home Medications: Ambulatory Orders Medication Instructions Recorded Lactulose [Enulose] 10 gm PO BID #30 ml 04/09/18 Folic Acid 1 mg PO DAILY #30 tab 05/10/18 Levetiracetam [Keppra] 500 mg PO BID #60 tablet 05/10/18 Omeprazole 40 mg PO BID 30 Days #60 capsule. 05/10/18 Thiamine [Vitamin B1 Tab] 100 mg PO DAILY #30 tab 05/10/18 - Allergies Allergies/Adverse Reactions: Allergies Allergy/AdvReac Type Severity Reaction Status Date / Time aspirin AdvReac GI Bleed Verified 05/11/18 17:49 ibuprofen [From Motrin] AdvReac GI Bleed Verified 05/11/18 17:49 naproxen AdvReac GI bleed Verified 05/11/18 17:49 NSAIDS (Non-Steroidal AdvReac GI bleed Verified 05/11/18 17:49 Anti-Inflamma Review of Systems ROS Statement: Except As Marked, All Systems Reviewed And Found Negative Physical Exam - Reviewed Nursing Documentation Reviewed: Yes Vital Signs Reviewed: Yes - Physical Exam Appears: Positive for: Well, Non-toxic, No Acute Distress (sleeping) Skin: Positive for: Normal Color Eye Exam: Positive for: Normal appearance ENT: Positive for: Normal ENT Inspection Cardiovascular/Chest: Positive for: Regular Rate, Rhythm Respiratory: Positive for: Normal Breath Sounds Gastrointestinal/Abdominal: Positive for: Normal Exam Back: Positive for: Normal Inspection Extremity: Positive for: Normal ROM Neurologic/Psych: Positive for: Alert, Oriented (x3) - ECG O2 Sat by Pulse Oximetry: 97 - Progress ED Course And Treament: Patient requires no further intervention in the ED and is stable for discharge at this time Disposition - Clinical Impression Clinical Impression: Malingering - Patient ED Disposition Is Patient to be Admitted: No Counseled Patient/Family Regarding: Diagnosis, Need For Followup - Disposition Disposition: Routine/Home Disposition Time: 04:21 Condition: GOOD
[2018-05-12 07:00] VITALS: BP 129/73; PULSE 78; TEMP 97.9; O2SAT 98
== END 2018-05-12 06:30 | disposition home or self-care (01) ==
LOC: H.ER 23:31
DX: Z76.5 Malingerer [conscious simulation] (principal)

== ENCOUNTER 2018-05-12 14:30 | Emergency (ER) | payer MEDICAID ==
[2018-05-12 14:31] VITALS: BMI 24.0
[2018-05-12 14:42] VITALS: O2SAT 96
--- NOTE | 2018-05-12 14:52 | ED PDOC ---
HPI: General Adult Time Seen by Provider: 05/12/18 14:51 Chief Complaint (Nursing): Seizure Chief Complaint (Provider): seizure History Per: Patient (53 y/o male h/o Seizures here with recent seizure. Patient did not take his keppra today.) Past Medical History Reviewed: Historical Data, Nursing Documentation, Vital Signs Vital Signs: Last Vital Signs Temp 98.3 F 05/12/18 14:39 Pulse 111 H 05/12/18 14:39 Resp 18 05/12/18 14:39 BP 147/73 05/12/18 14:39 Pulse Ox 96 05/12/18 14:39 - Medical History PMH: Anemia, Anxiety, Back Problems (herniated disc), Deep Vein Thrombosis, Fractures, Gastritis, Gall Bladder Disease (Cholelithiasis), HTN, Pancreatitis, Pneumonia, Seizures, Chronic Pain (left shoulder) Denies: CHF, HIV, Hypercholesterolemia, Chronic Kidney Disease, Sexually Transmitted Disease - Surgical History Surgical History: Endoscopy - Family History Family History: States: Unknown Family Hx - Immunization History Hx Tetanus Toxoid Vaccination: Yes Hx Influenza Vaccination: Yes Hx Pneumococcal Vaccination: Yes - Home Medications Home Medications: Ambulatory Orders Medication Instructions Recorded Lactulose [Enulose] 10 gm PO BID #30 ml 04/09/18 Folic Acid 1 mg PO DAILY #30 tab 05/10/18 Levetiracetam [Keppra] 500 mg PO BID #60 tablet 05/10/18 Omeprazole 40 mg PO BID 30 Days #60 capsule. 05/10/18 Thiamine [Vitamin B1 Tab] 100 mg PO DAILY #30 tab 05/10/18 - Allergies Allergies/Adverse Reactions: Allergies Allergy/AdvReac Type Severity Reaction Status Date / Time aspirin AdvReac GI Bleed Verified 05/12/18 14:39 ibuprofen [From Motrin] AdvReac GI Bleed Verified 05/12/18 14:39 naproxen AdvReac GI bleed Verified 05/12/18 14:39 NSAIDS (Non-Steroidal AdvReac GI bleed Verified 05/12/18 14:39 Anti-Inflamma Review of Systems ROS Statement: Except As Marked, All Systems Reviewed And Found Negative Physical Exam - Reviewed Nursing Documentation Reviewed: Yes Vital Signs Reviewed: Yes - Physical Exam Appears: Positive for: Well, Non-toxic, No Acute Distress Head Exam: Positive for: ATRAUMATIC, NORMAL INSPECTION, NORMOCEPHALIC Skin: Positive for: Normal Color, Warm, DRY Eye Exam: Positive for: EOMI, Normal appearance, PERRL ENT: Positive for: Normal ENT Inspection Neck: Positive for: Normal, Painless ROM Cardiovascular/Chest: Positive for: Regular Rate, Rhythm Respiratory: Positive for: CNT, Normal Breath Sounds Gastrointestinal/Abdominal: Positive for: Normal Exam, Soft Back: Positive for: Normal Inspection Extremity: Positive for: Normal ROM Neurologic/Psych: Positive for: Alert, Oriented - ECG O2 Sat by Pulse Oximetry: 96 - Progress ED Course And Treament: Keppra 500mg x 1 dose Disposition - Clinical Impression Clinical Impression: Seizure disorder - Patient ED Disposition Is Patient to be Admitted: No - Disposition Referrals: [facility] [Outside] Disposition: Routine/Home Disposition Time: 15:19 Condition: FAIR Instructions: Seizures, Adult (DC)
[2018-05-12 15:43] VITALS: BP 126/72; PULSE 76; RESP 16; TEMP 97.6
== END 2018-05-12 15:43 | disposition home or self-care (01) ==
LOC: H.ER 14:30
DX: G40.909 Epilepsy, unspecified, not intractable, without status epilepticus (principal); I10 Essential (primary) hypertension; G89.29 Other chronic pain; Z86.718 Personal history of other venous thrombosis and embolism; Z88.6 Allergy status to analgesic agent

== ENCOUNTER 2018-05-12 16:59 | Emergency (ER) | payer MEDICAID ==
[2018-05-12 17:00] VITALS: BMI 24.0
[2018-05-12 17:19] VITALS: TEMP 98.8
--- NOTE | 2018-05-12 17:32 | ED PDOC ---
HPI: Seizure Time Seen by Provider: 05/12/18 17:30 Chief Complaint (Nursing): Seizure Chief Complaint (Provider): SEIZURE History Per: Patient (53 Y/O male here for evaluation of seizure. Frequent ED visitor. Recently d/lawson 30 minutes prior to ED arrival. Patient states he walked to ED after his seizure. Was given keppra prior to d/c last visit today.) Past Medical History Reviewed: Historical Data, Nursing Documentation, Vital Signs Vital Signs: Last Vital Signs Temp 98.8 F 05/12/18 17:18 Pulse 113 H 05/12/18 17:18 Resp 20 05/12/18 17:18 BP 112/78 05/12/18 17:18 Pulse Ox 98 05/12/18 17:18 - Medical History PMH: Anemia, Anxiety, Back Problems (herniated disc), Deep Vein Thrombosis, Fractures, Gastritis, Gall Bladder Disease (Cholelithiasis), HTN, Pancreatitis, Pneumonia, Seizures, Chronic Pain (left shoulder) Denies: CHF, HIV, Hypercholesterolemia, Chronic Kidney Disease, Sexually Transmitted Disease - Surgical History Surgical History: Endoscopy - Family History Family History: States: Unknown Family Hx - Immunization History Hx Tetanus Toxoid Vaccination: Yes Hx Influenza Vaccination: Yes Hx Pneumococcal Vaccination: Yes - Home Medications Home Medications: Ambulatory Orders Medication Instructions Recorded Lactulose [Enulose] 10 gm PO BID #30 ml 04/09/18 Folic Acid 1 mg PO DAILY #30 tab 05/10/18 Levetiracetam [Keppra] 500 mg PO BID #60 tablet 05/10/18 Omeprazole 40 mg PO BID 30 Days #60 capsule. 05/10/18 Thiamine [Vitamin B1 Tab] 100 mg PO DAILY #30 tab 05/10/18 - Allergies Allergies/Adverse Reactions: Allergies Allergy/AdvReac Type Severity Reaction Status Date / Time aspirin AdvReac GI Bleed Verified 05/12/18 14:39 ibuprofen [From Motrin] AdvReac GI Bleed Verified 05/12/18 14:39 naproxen AdvReac GI bleed Verified 05/12/18 14:39 NSAIDS (Non-Steroidal AdvReac GI bleed Verified 05/12/18 14:39 Anti-Inflamma Review of Systems ROS Statement: Except As Marked, All Systems Reviewed And Found Negative Physical Exam - Reviewed Nursing Documentation Reviewed: Yes Vital Signs Reviewed: Yes - Physical Exam Appears: Positive for: Well, Non-toxic, No Acute Distress Head Exam: Positive for: ATRAUMATIC, NORMAL INSPECTION, NORMOCEPHALIC Skin: Positive for: Normal Color, Warm, DRY Eye Exam: Positive for: EOMI, Normal appearance, PERRL ENT: Positive for: Normal ENT Inspection Neck: Positive for: Normal, Painless ROM Cardiovascular/Chest: Positive for: Regular Rate, Rhythm Respiratory: Positive for: CNT, Normal Breath Sounds Gastrointestinal/Abdominal: Positive for: Normal Exam, Soft Back: Positive for: Normal Inspection Extremity: Positive for: Normal ROM Neurologic/Psych: Positive for: Alert, Oriented - ECG O2 Sat by Pulse Oximetry: 98 Disposition - Clinical Impression Clinical Impression: Alcohol abuse, Malingering, Homelessness - Patient ED Disposition Is Patient to be Admitted: No - Disposition Disposition: Routine/Home Disposition Time: 19:06 Condition: FAIR Instructions: Alcohol Abuse and Alcoholism (DC)
[2018-05-12 19:21] VITALS: BP 126/82; PULSE 94; RESP 15; O2SAT 97
== END 2018-05-12 20:10 | disposition home or self-care (01) ==
LOC: H.ER 16:59
DX: F10.10 Alcohol abuse, uncomplicated (principal); Z76.5 Malingerer [conscious simulation]; Z59.0 Homelessness

== ENCOUNTER 2018-05-12 20:47 | Inpatient (IN) | payer MEDICAID ==
[2018-05-12] MEDS ORDERED: Sodium Chloride 0.9% 1,000 ML IV STA (21:20)
[2018-05-12 21:47] LABS: VENOUS BLOOD GAS BASE EXCESS 1.6 mmol/L (0.0-2.0); VENOUS BLOOD GAS PCO2 33 mmHg (40-60); VENOUS BLOOD GAS PO2 35 mm/Hg (30-55); VENOUS BLOOD PH 7.48 (7.32-7.43)
[2018-05-12 21:52] LABS: BASO # 0.1 K/uL (0.0-0.2); BASO % 2.4 % (0.0-2.0); EOS # 0.1 K/uL (0.0-0.7); EOS % 2.3 % (0.0-4.0); HEMOGLOBIN 9.1 g/dL (12.0-18.0); LYMPH # 0.3 K/uL (1.0-4.3); LYMPH % 5.9 % (20.0-40.0); MEAN CELL VOLUME 86.1 fl (80.0-94.0); MEAN CORPUSCULAR HEMOGLOBIN 28.1 pg (27.0-31.0); MEAN CORPUSCULAR HGB CONC 32.6 g/dL (33.0-37.0); MEAN PLATELET VOLUME 8.2 fl (7.2-11.7); MONO # 0.3 K/uL (0.0-0.8); MONO % 6.5 % (0.0-10.0); NEUT % 82.9 % (50.0-75.0); NRBC % 0.1 % (0.0-0.0); RBC 3.23 Mil/uL (4.40-5.90); RED CELL DISTRIBUTION WIDTH 20.4 % (11.5-14.5); WHITE BLOOD COUNT 4.9 K/uL (4.8-10.8)
--- NOTE | 2018-05-12 22:02 | ED PDOC ---
HPI: General Adult Time Seen by Provider: 05/12/18 20:51 Chief Complaint (Nursing): Alcohol Ingestion History Per: Patient History/Exam Limitations: no limitations Current Symptoms Are (Timing): Still Present Additional Complaint(s): Hx of ETOH abuse, seizures presenting with weakness and fever. Patient was just discharged from the ER but was unable to walk due to weakness. States he felt a fever today, states he also had a cough. Denies sore throat, rash, urinary symptoms, chest pain, shortness of breath, or other symptoms. Past Medical History Reviewed: Historical Data, Nursing Documentation, Vital Signs Vital Signs: Last Vital Signs Temp 101.3 F H 05/12/18 21:51 Pulse 97 H 05/12/18 21:51 Resp 16 05/12/18 21:51 BP 142/78 05/12/18 21:51 Pulse Ox 97 05/12/18 21:51 - Medical History PMH: Anemia, Anxiety, Back Problems (herniated disc), Deep Vein Thrombosis, Fractures, Gastritis, Gall Bladder Disease (Cholelithiasis), HTN, Pancreatitis, Pneumonia, Seizures, Chronic Pain (left shoulder) Denies: CHF, HIV, Hypercholesterolemia, Chronic Kidney Disease, Sexually Transmitted Disease - Surgical History Surgical History: Endoscopy - Family History Family History: States: Unknown Family Hx - Immunization History Hx Tetanus Toxoid Vaccination: Yes Hx Influenza Vaccination: Yes Hx Pneumococcal Vaccination: Yes - Home Medications Home Medications: Ambulatory Orders Medication Instructions Recorded RX: Lactulose [Enulose] 10 gm PO BID #30 ml 04/09/18 RX: Folic Acid 1 mg PO DAILY #30 tab 05/10/18 RX: Levetiracetam [Keppra] 500 mg PO BID #60 tablet 05/10/18 RX: Omeprazole 40 mg PO BID 30 Days #60 capsule. 05/10/18 RX: Thiamine [Vitamin B1 Tab] 100 mg PO DAILY #30 tab 05/10/18 - Allergies Allergies/Adverse Reactions: Allergies Allergy/AdvReac Type Severity Reaction Status Date / Time aspirin AdvReac GI Bleed Verified 05/12/18 21:04 ibuprofen [From Motrin] AdvReac GI Bleed Verified 05/12/18 21:04 naproxen AdvReac GI bleed Verified 05/12/18 21:04 NSAIDS (Non-Steroidal AdvReac GI bleed Verified 05/12/18 21:04 Anti-Inflamma Review of Systems ROS Statement: Except As Marked, All Systems Reviewed And Found Negative Constitutional: Positive for: Fever Respiratory: Positive for: Cough. Negative for: Shortness of Breath Physical Exam - Reviewed Nursing Documentation Reviewed: Yes Vital Signs Reviewed: Yes - Physical Exam Appears: Positive for: Non-toxic, No Acute Distress. Negative for: Well (Chronically ill appearing, tired appearing) Head Exam: Positive for: ATRAUMATIC, NORMAL INSPECTION, NORMOCEPHALIC Skin: Positive for: Normal Color, Warm, DRY Eye Exam: Positive for: EOMI, Normal appearance, PERRL ENT: Positive for: Normal ENT Inspection Neck: Positive for: Normal, Painless ROM Cardiovascular/Chest: Positive for: Regular Rate, Rhythm Respiratory: Positive for: Rhonchi (Scattered) Gastrointestinal/Abdominal: Positive for: Normal Exam, Soft Back: Positive for: Normal Inspection Extremity: Positive for: Normal ROM Neurologic/Psych: Positive for: Alert, Oriented - Laboratory Results Result Diagrams: 05/14/18 04:23 05/13/18 17:47 - ECG O2 Sat by Pulse Oximetry: 97 (RA) Pulse Ox Interpretation: Normal - Critical Care Total Time (In Min): 60 Documented Critical Care: Time excludes all time spent performint seperately billable procedures Medical Decision Making Medical Decision MakinPM Patient presenting with fever, cough --Patient appears sick at this time, febrile, tachycardic --Unknown source of fever at this time --Will check labs, CXR, treat for sepsis 0223 Patient noted to have episode of vomiting with blood in emesis. Patient given IV fluids. Zofran 4mg given. 0225 CT Chest w/o contrast FINDINGS: Mild paraseptal emphysema. Minimal pleural effusions. Bilateral basilar pneumonic consolidation is on the lower lobes. Normal unenhanced main pulmonary artery and right and left pulmonary arteries. Normal bilateral peripheral pulmonary arteries. Normal thoracic aorta and visualized great vessels. There is no demonstrated aortic aneurysm. Normal heart and pericardium. Normal mediastinum. Normal hilar regions. Normal visualized trachea and bronchi. Normal pleura. Normal chest wall structures. Normal osseous structures. Liver cirrhosis. Splenomegaly. Portal hypertension. TIPS is in good position. Small sliding hiatal hernia. IMPRESSION: Bilateral basilar multifocal bronchopneumonia. [address] Cummins, patient to be admitted under his service. 0255 Notified by lab that patient's Hgb level is 6.0 03:03 Patient noted to have ney blood in his stool. PPI drip initiated. 0600 Dr. Swartz consulted, will see patient. No longer vomiting. Mental status normal. Disposition - Clinical Impression Clinical Impression: Pneumonia, GI bleed - Patient ED Disposition Is Patient to be Admitted: Yes - Disposition Disposition Time: 03:00 Condition: SERIOUS
[2018-05-12 22:03] LABS: ALB/GLOB RATIO 0.8 (1.0-2.1); ALBUMIN 3.3 g/dL (3.5-5.0); ALT/SGPT 51 U/L (21-72); AST/SGOT 100 U/L (17-59); BLOOD UREA NITROGEN 12 mg/dl (9-20); CALCIUM 8.2 mg/dL (8.4-10.2); GFR NON-AFRICAN AMERICAN > 60
[2018-05-12 22:24] LABS: INR 1.4; PROTHROMBIN TIME 16.1 Seconds (9.8-13.1)
[2018-05-12 22:56] LABS: SQUAMOUS EPITHIAL 1 /hpf (0-5); URINE BACTERIA RARE (<OCC); URINE BILIRUBIN NEGATIVE (NEGATIVE); URINE BLOOD SMALL (NEGATIVE); URINE CLARITY SLIGHTY-CLOUDY (Clear); URINE COLOR YELLOW (YELLOW); URINE GLUCOSE (UA) NEG (Normal); URINE LEUKOCYTE ESTERASE NEG Leu/uL (Negative); URINE PROTEIN NEGATIVE (NEGATIVE)
[2018-05-13 00:36] LABS: VENOUS BLOOD GAS BASE EXCESS 0.4 mmol/L (0.0-2.0); VENOUS BLOOD GAS PCO2 30 mmHg (40-60); VENOUS BLOOD GAS PO2 58 mm/Hg (30-55); VENOUS BLOOD PH 7.49 (7.32-7.43)
[2018-05-13] MEDS ORDERED: Sodium Chloride 0.9% 1,000 ML IV STA ×2 (02:36→04:27)
[2018-05-13] MEDS ORDERED: Piperacillin/Tazobact 3.375 GM in Sodium Chloride 0.9% 100 ML IVPB STA (02:38)
[2018-05-13] MEDS ORDERED: Vancomycin 1 g Inj ONE (02:40)
[2018-05-13 02:52] LABS: BASO % 0.7 % (0.0-2.0); EOS # 0.1 K/uL (0.0-0.7); EOS % 1.1 % (0.0-4.0); LYMPH # 0.7 K/uL (1.0-4.3); LYMPH % 14.7 % (20.0-40.0); MEAN CELL VOLUME 88.7 fl (80.0-94.0); MEAN CORPUSCULAR HEMOGLOBIN 28.4 pg (27.0-31.0); MEAN PLATELET VOLUME 8.2 fl (7.2-11.7); MONO # 0.4 K/uL (0.0-0.8); NEUT # 3.5 K/uL (1.8-7.0); NEUT % 74.5 % (50.0-75.0); NRBC % 0.4 % (0.0-0.0); RBC 2.11 Mil/uL (4.40-5.90); RED CELL DISTRIBUTION WIDTH 20.7 % (11.5-14.5); WHITE BLOOD COUNT 4.7 K/uL (4.8-10.8)
[2018-05-13] MEDS ORDERED: Pantoprazole 40 MG in Sodium Chloride 0.9% 100 ML IVPB STA (02:57)
--- NOTE | 2018-05-13 03:19 | CP.PCM.HP ---
<Melanie Page - Last Filed: 05/13/18 04:09> History of Present Illness - History of Present Illness History of Present Illness: CC: cough, GI bleed HPI: 53 YO male with PMHx of multiple admissions for GI bleed, ETOH abuse, cirrhsis (s/p TIPS), esophageal varices, anemia presents to [facility] ED for cough and fever. Pt states that he has been coughing for 1x day, did not have a fever prior to presentation to the ED. In the ED, pt had 1x episode of bloody emesis, and 1x initially blood tinged BM followed by 3x bloody red BMs. Currently pt endorsing feeling fatigue. Of note, last ETOH use was "few days ago." Pt is a poor historian. PMD: none PMHx: ETOH abuse, unwitnessed seizures, cirrhosis (s/p TIPS), hepatic encephalopathy, esophageal varices, chronic anemia Surgical hx: TIPs in 2014 Social hx: smoker; 3 cigarettes a day, 1.5 ppd previously, etoh abuse Family hx: father [place], mother smoker and of lung cancer, sister diagnosed with colon cancer, recently mild-2018 Allergies: asprin, ibuprofen, naproxen, NSAIDs (nausea for all of them) Next of Kin: Arty [phone] Present on Admission - Present on Admission Any Indicators Present on Admission: No Review of Systems - Constitutional Constitutional: Fever. absent: Chills - EENT Eyes: absent: Change in Vision - Cardiovascular Cardiovascular: absent: Chest Pain, Dyspnea, Palpitations - Respiratory Respiratory: Cough. absent: Dyspnea - Gastrointestinal Gastrointestinal: Abdominal Pain, Hematemesis, Hematochezia, Nausea, Vomiting - Genitourinary Genitourinary: absent: Dysuria - Neurological Neurological: Weakness Past Patient History - Infectious Disease Hx of Infectious Diseases: None - Tetanus Immunizations Tetanus Immunization: Unknown - Past Medical History & Family History Past Medical History?: Yes - Past Social History Smoking Status: Former Smoker Alcohol: Occasional Home Situation {Lives}: Homeless - CARDIAC Hx Congestive Heart Failure: No Hx Hypercholesterolemia: No Hx Hypertension: Yes - PULMONARY Hx Pneumonia: Yes - NEUROLOGICAL Hx Seizures: Yes - HEENT Hx HEENT Problems: No - RENAL Hx Chronic Kidney Disease: No - ENDOCRINE/METABOLIC Hx Endocrine Disorders: No - HEMATOLOGICAL/ONCOLOGICAL Hx Anemia: Yes Hx Human Immunodeficiency Virus (HIV): No - INTEGUMENTARY Hx Dermatological Problems: Yes Hx Cellulitis: Yes - MUSCULOSKELETAL/RHEUMATOLOGICAL Hx Fractures: Yes - GASTROINTESTINAL Hx Gall Bladder Disease: Yes (Cholelithiasis) Hx Gastritis: Yes Hx Pancreatitis: Yes - GENITOURINARY/GYNECOLOGICAL Hx Sexually Transmitted Disorders: No - PSYCHIATRIC Hx Anxiety: Yes - SURGICAL HISTORY Hx Surgeries: Yes - ANESTHESIA Hx Anesthesia: Yes Hx Anesthesia Reactions: No Hx Malignant Hyperthermia: No Meds Allergies/Adverse Reactions: Allergies Allergy/AdvReac Type Severity Reaction Status Date / Time aspirin AdvReac GI Bleed Verified 05/12/18 21:04 ibuprofen [From Motrin] AdvReac GI Bleed Verified 05/12/18 21:04 naproxen AdvReac GI bleed Verified 05/12/18 21:04 NSAIDS (Non-Steroidal AdvReac GI bleed Verified 05/12/18 21:04 Anti-Inflamma Physical Exam - Constitutional Appears: No Acute Distress, Other (Pale ) - Head Exam Head Exam: NORMAL INSPECTION - Eye Exam Eye Exam: EOMI. absent: Scleral icterus - ENT Exam ENT Exam: Mucous Membranes Moist - Respiratory Exam Respiratory Exam: Rhonchi (in the lower lobes b/l ), NORMAL BREATHING PATTERN - Cardiovascular Exam Cardiovascular Exam: REGULAR RHYTHM, +S1, +S2 - GI/Abdominal Exam GI & Abdominal Exam: Distended (mild), Hypoactive Bowel Sounds, Tenderness (mild epigastric tenderness on deep inspiration). absent: Guarding, Rebound - Extremities Exam Extremities exam: Positive for: pedal edema (1+ pitting edema up to the mid- haynes). Negative for: calf tenderness - Back Exam Back exam: NORMAL INSPECTION - Neurological Exam Neurological exam: Alert - Skin Skin Exam: Pallor Results - Vital Signs Recent Vital Signs: Last Vital Signs Temp 99.7 F H 05/13/18 00:57 Pulse 101 H 05/13/18 00:57 Resp 18 05/13/18 00:57 BP 101/54 L 05/13/18 00:57 Pulse Ox 97 05/13/18 03:12 - Labs Result Diagrams: 05/13/18 02:26 05/12/18 21:35 Labs: Laboratory Results - last 24 hr 05/12/18 05/12/18 05/12/18 21:35 21:35 21:35 WBC 4.9 D RBC 3.23 L Hgb 9.1 L Hct 27.8 L MCV 86.1 MCH 28.1 MCHC 32.6 L RDW 20.4 H Plt Count 106 L D MPV 8.2 Neut % (Auto) 82.9 H Lymph % (Auto) 5.9 L [place] % (Auto) 6.5 Eos % (Auto) 2.3 Baso % (Auto) 2.4 H Neut # (Auto) 4.0 Lymph # (Auto) 0.3 L [place] # (Auto) 0.3 Eos # (Auto) 0.1 Baso # (Auto) 0.1 Total Counted Cancelled Neutrophils % (Manual) Cancelled Band Neutrophils % Cancelled Lymphocytes % (Manual) Cancelled Reactive Lymphs % Cancelled Monocytes % (Manual) Cancelled Eosinophils % (Manual) Cancelled Basophils % (Manual) Cancelled Metamyelocytes % Cancelled Myelocytes % Cancelled Promyelocytes % Cancelled Blast Cells % Cancelled Plasma Cell % (Manual) Cancelled Nucleated RBC % Cancelled Hypersegmented Polys Cancelled Smudge Cells Cancelled Toxic Granulation Cancelled Dohle Bodies Cancelled Antonio Rods Cancelled Platelet Estimate Cancelled Plt Clumps, EDTA Cancelled Large Platelets Cancelled Giant Platelets Cancelled RBC Morphology Cancelled Polychromasia Cancelled Hypochromasia (manual) Cancelled Poikilocytosis (manual Cancelled Basophilic Stippling Cancelled Anisocytosis (manual) Cancelled Microcytosis (manual) Cancelled Macrocytosis (manual) Cancelled Spherocytes Cancelled Sickle Cells Cancelled Target Cells Cancelled Tear Drop Cells Cancelled Ovalocytes Cancelled Stomatocytes Cancelled Helmet Cells Cancelled Chanel-Seibert Bodies Cancelled Rayna Cells Cancelled Acanthocytes (Spur) Cancelled Rouleaux Cancelled Schistocytes Cancelled PT 16.1 H INR 1.4 APTT 35.0 pO2 VBG pH VBG pCO2 VBG HCO3 VBG Total CO2 VBG O2 Sat (Calc) VBG Base Excess VBG Potassium Glucose Lactate FiO2 Sodium 137 Potassium 4.0 Chloride 106 Carbon Dioxide 22 Anion Gap 13 BUN 12 Creatinine 0.6 L Est GFR ( Amer) > 60 Est GFR (Non-Af Amer) > 60 Random Glucose 122 H Calcium 8.2 L Phosphorus 3.1 Magnesium 1.3 L Total Bilirubin 2.0 H AST 100 H ALT 51 Alkaline Phosphatase 192 H Total Protein 7.5 Albumin 3.3 L Globulin 4.2 H Albumin/Globulin Ratio 0.8 L Venous Blood Potassium Urine Color Urine Clarity Urine pH Ur Specific Panacea Urine Protein Urine Glucose (UA) Urine Ketones Urine Blood Urine Nitrate Urine Bilirubin Urine Urobilinogen Ur Leukocyte Esterase Urine RBC (Auto) Urine Microscopic WBC Ur Squamous Epith Cells Urine Bacteria Influenza Typ A,B (EIA) 05/12/18 05/12/18 05/12/18 21:35 21:41 22:40 WBC RBC Hgb Hct MCV MCH MCHC RDW Plt Count MPV Neut % (Auto) Lymph % (Auto) [place] % (Auto) Eos % (Auto) Baso % (Auto) Neut # (Auto) Lymph # (Auto) [place] # (Auto) Eos # (Auto) Baso # (Auto) Total Counted Neutrophils % (Manual) Band Neutrophils % Lymphocytes % (Manual) Reactive Lymphs % Monocytes % (Manual) Eosinophils % (Manual) Basophils % (Manual) Metamyelocytes % Myelocytes % Promyelocytes % Blast Cells % Plasma Cell % (Manual) Nucleated RBC % Hypersegmented Polys Smudge Cells Toxic Granulation Dohle Bodies Antonio Rods Platelet Estimate Plt Clumps, EDTA Large Platelets Giant Platelets RBC Morphology Polychromasia Hypochromasia (manual) Poikilocytosis (manual Basophilic Stippling Anisocytosis (manual) Microcytosis (manual) Macrocytosis (manual) Spherocytes Sickle Cells Target Cells Tear Drop Cells Ovalocytes Stomatocytes Helmet Cells Chanel-Seibert Bodies Climax Cells Acanthocytes (Spur) Rouleaux Schistocytes PT INR APTT pO2 35 VBG pH 7.48 H VBG pCO2 33 L VBG HCO3 25.5 VBG Total CO2 25.6 VBG O2 Sat (Calc) 77.3 H VBG Base Excess 1.6 VBG Potassium 3.7 Glucose 108 Lactate 1.2 FiO2 21.0 Sodium 137.0 Potassium Chloride 107.0 Carbon Dioxide Anion Gap BUN Creatinine Est GFR ( Amer) Est GFR (Non-Af Amer) Random Glucose Calcium Phosphorus Magnesium Total Bilirubin AST ALT Alkaline Phosphatase Total Protein Albumin Globulin Albumin/Globulin Ratio Venous Blood Potassium 3.7 Urine Color Yellow Urine Clarity Slighty-cloudy Urine pH 7.0 Ur Specific Panacea 1.016 Urine Protein Negative Urine Glucose (UA) Neg Urine Ketones Negative Urine Blood Small Urine Nitrate Negative Urine Bilirubin Negative Urine Urobilinogen 4.0 Ur Leukocyte Esterase Neg Urine RBC (Auto) 3 Urine Microscopic WBC 1 Ur Squamous Epith Cells 1 Urine Bacteria Rare Influenza Typ A,B (EIA) Negative for flu a/b 05/13/18 05/13/18 00:27 02:26 WBC 4.7 L RBC 2.11 L Hgb 6.0 L* D Hct 18.7 L MCV 88.7 D MCH 28.4 MCHC 32.0 L RDW 20.7 H Plt Count 59 L D MPV 8.2 Neut % (Auto) 74.5 Lymph % (Auto) 14.7 L [place] % (Auto) 9.0 Eos % (Auto) 1.1 Baso % (Auto) 0.7 Neut # (Auto) 3.5 Lymph # (Auto) 0.7 L [place] # (Auto) 0.4 Eos # (Auto) 0.1 Baso # (Auto) 0.0 Total Counted Neutrophils % (Manual) Band Neutrophils % Lymphocytes % (Manual) Reactive Lymphs % Monocytes % (Manual) Eosinophils % (Manual) Basophils % (Manual) Metamyelocytes % Myelocytes % Promyelocytes % Blast Cells % Plasma Cell % (Manual) Nucleated RBC % Hypersegmented Polys Smudge Cells Toxic Granulation Dohle Bodies Antonio Rods Platelet Estimate Plt Clumps, EDTA Large Platelets Giant Platelets RBC Morphology Polychromasia Hypochromasia (manual) Poikilocytosis (manual Basophilic Stippling Anisocytosis (manual) Microcytosis (manual) Macrocytosis (manual) Spherocytes Sickle Cells Target Cells Tear Drop Cells Ovalocytes Stomatocytes Helmet Cells Chanel-Seibert Bodies Climax Cells Acanthocytes (Spur) Rouleaux Schistocytes PT INR APTT pO2 58 H VBG pH 7.49 H VBG pCO2 30 L VBG HCO3 25.1 VBG Total CO2 23.8 VBG O2 Sat (Calc) 100.4 H VBG Base Excess 0.4 VBG Potassium 3.6 Glucose 117 H Lactate 0.9 FiO2 21.0 Sodium 137.0 Potassium Chloride 109.0 H Carbon Dioxide Anion Gap BUN Creatinine Est GFR ( Amer) Est GFR (Non-Af Amer) Random Glucose Calcium Phosphorus Magnesium Total Bilirubin AST ALT Alkaline Phosphatase Total Protein Albumin Globulin Albumin/Globulin Ratio Venous Blood Potassium 3.6 Urine Color Urine Clarity Urine pH Ur Specific Panacea Urine Protein Urine Glucose (UA) Urine Ketones Urine Blood Urine Nitrate Urine Bilirubin Urine Urobilinogen Ur Leukocyte Esterase Urine RBC (Auto) Urine Microscopic WBC Ur Squamous Epith Cells Urine Bacteria Influenza Typ A,B (EIA) Assessment & Plan - Assessment and Plan (Free Text) Assessment: Assessment/Plan: 54 YO male with PMHx of ETOH abuse, unwitnessed seizures, cirrhosis (s/p TIPS), hepatic encephalopathy admitted for GI bleed, anemia, sepsis and pneumonia. Sepsis -tachycardia with Temp (Tmax of 101.6), source likely b/l pneumonia -lactate 0.9 -Bcx and Ucx pending -c/w IV fluids -monitor vitals -Tylenol PRN fever -Cont IV ABx -Acute GI bleed -Hematemesis and hematochezia, lower VS upper GI bleed -low hb 6.0 (from 9 on 05/12) -4 units of PRBC order given acute bleeding -Last Endoscopy 04/2018: normal esophagus, multiple non-bleeding erosions found in the stomach, normal duodenum (Dr. Swartz) -start IV protonix, NPO, cont IVF, Zofran PRN -GI consulted, follow up recs -follow up post transfusion h/h -Aspiration precautions B/L Pneumonia -CT chest sig for Bilateral basilar multi-focal bronchopneumonia -HCAP vs aspiration pneumonia given ETOH abuse -Follow up official CT and CXR readings -c/w Vac and Zosyn -f/u vac trough Normocytic Anemia -acute on chronic -Acute GI bleed -will transfuse 4 units of PRBC -follow up post transfusion h/h Hyperammonemia -Ammonia level 186 -Patient mental status stable, no sign of confusion -NPO for now -star NM lactulose -consider rifaximin and PO lactulose once GI bleeding stops Hypomagnesemia -Mg 1.3 -will start 1g of Mg sulfate -follow up Liver Cirrhosis -chronic, 2/2 to ETOH abuse -MELD's Score 13 Pancytopenia -chronic -likely 2/2 to ETOH abuse and cirrhosis Alcohol Abuse -chronic -ETOH <10 -CIWA 7 on admission -start CIWA protocol -Ativan 2mg IVP PRN ETOH withdrawal -Monitor for signs of DT Seizure Disorder -chronic, unwitnessed -hold Keppra now, NPO -Seizure precautions DVT prophylaxis -No Lovenox at this time given acute GI bleeding -SCD for now <Chong Cummins - Last Filed: 05/13/18 05:45> Results - Vital Signs Recent Vital Signs: Last Vital Signs Temp 98.5 F 05/13/18 03:24 Pulse 88 05/13/18 04:43 Resp 16 05/13/18 04:43 BP 119/59 L 05/13/18 04:43 Pulse Ox 100 05/13/18 04:43 - Labs Result Diagrams: 05/13/18 02:26 05/12/18 21:35 Labs: Laboratory Results - last 24 hr 05/12/18 05/12/18 05/12/18 21:35 21:35 21:35 WBC 4.9 D RBC 3.23 L Hgb 9.1 L Hct 27.8 L MCV 86.1 MCH 28.1 MCHC 32.6 L RDW 20.4 H Plt Count 106 L D MPV 8.2 Neut % (Auto) 82.9 H Lymph % (Auto) 5.9 L [place] % (Auto) 6.5 Eos % (Auto) 2.3 Baso % (Auto) 2.4 H Neut # (Auto) 4.0 Lymph # (Auto) 0.3 L [place] # (Auto) 0.3 Eos # (Auto) 0.1 Baso # (Auto) 0.1 Total Counted Cancelled Neutrophils % (Manual) Cancelled Band Neutrophils % Cancelled Lymphocytes % (Manual) Cancelled Reactive Lymphs % Cancelled Monocytes % (Manual) Cancelled Eosinophils % (Manual) Cancelled Basophils % (Manual) Cancelled Metamyelocytes % Cancelled Myelocytes % Cancelled Promyelocytes % Cancelled Blast Cells % Cancelled Plasma Cell % (Manual) Cancelled Nucleated RBC % Cancelled Hypersegmented Polys Cancelled Smudge Cells Cancelled Toxic Granulation Cancelled Dohle Bodies Cancelled Antonio Rods Cancelled Platelet Estimate Cancelled Plt Clumps, EDTA Cancelled Large Platelets Cancelled Giant Platelets Cancelled RBC Morphology Cancelled Polychromasia Cancelled Hypochromasia (manual) Cancelled Poikilocytosis (manual Cancelled Basophilic Stippling Cancelled Anisocytosis (manual) Cancelled Microcytosis (manual) Cancelled Macrocytosis (manual) Cancelled Spherocytes Cancelled Sickle Cells Cancelled Target Cells Cancelled Tear Drop Cells Cancelled Ovalocytes Cancelled Stomatocytes Cancelled Helmet Cells Cancelled Chanel-Seibert Bodies Cancelled Rayna Cells Cancelled Acanthocytes (Spur) Cancelled Rouleaux Cancelled Schistocytes Cancelled PT 16.1 H INR 1.4 APTT 35.0 pO2 VBG pH VBG pCO2 VBG HCO3 VBG Total CO2 VBG O2 Sat (Calc) VBG Base Excess VBG Potassium Glucose Lactate FiO2 Sodium 137 Potassium 4.0 Chloride 106 Carbon Dioxide 22 Anion Gap 13 BUN 12 Creatinine 0.6 L Est GFR ( Amer) > 60 Est GFR (Non-Af Amer) > 60 Random Glucose 122 H Calcium 8.2 L Phosphorus 3.1 Magnesium 1.3 L Total Bilirubin 2.0 H AST 100 H ALT 51 Alkaline Phosphatase 192 H Ammonia Total Protein 7.5 Albumin 3.3 L Globulin 4.2 H Albumin/Globulin Ratio 0.8 L Venous Blood Potassium Urine Color Urine Clarity Urine pH Ur Specific Panacea Urine Protein Urine Glucose (UA) Urine Ketones Urine Blood Urine Nitrate Urine Bilirubin Urine Urobilinogen Ur Leukocyte Esterase Urine RBC (Auto) Urine Microscopic WBC Ur Squamous Epith Cells Urine Bacteria Alcohol, Quantitative Influenza Typ A,B (EIA) Blood Type Antibody Screen Crossmatch BBK History Checked 05/12/18 05/12/18 05/12/18 21:35 21:41 22:40 WBC RBC Hgb Hct MCV MCH MCHC RDW Plt Count MPV Neut % (Auto) Lymph % (Auto) [place] % (Auto) Eos % (Auto) Baso % (Auto) Neut # (Auto) Lymph # (Auto) [place] # (Auto) Eos # (Auto) Baso # (Auto) Total Counted Neutrophils % (Manual) Band Neutrophils % Lymphocytes % (Manual) Reactive Lymphs % Monocytes % (Manual) Eosinophils % (Manual) Basophils % (Manual) Metamyelocytes % Myelocytes % Promyelocytes % Blast Cells % Plasma Cell % (Manual) Nucleated RBC % Hypersegmented Polys Smudge Cells Toxic Granulation Dohle Bodies Antonio Rods Platelet Estimate Plt Clumps, EDTA Large Platelets Giant Platelets RBC Morphology Polychromasia Hypochromasia (manual) Poikilocytosis (manual Basophilic Stippling Anisocytosis (manual) Microcytosis (manual) Macrocytosis (manual) Spherocytes Sickle Cells Target Cells Tear Drop Cells Ovalocytes Stomatocytes Helmet Cells Chanel-Seibert Bodies [place]ax Cells Acanthocytes (Spur) Rouleaux Schistocytes PT INR APTT pO2 35 VBG pH 7.48 H VBG pCO2 33 L VBG HCO3 25.5 VBG Total CO2 25.6 VBG O2 Sat (Calc) 77.3 H VBG Base Excess 1.6 VBG Potassium 3.7 Glucose 108 Lactate 1.2 FiO2 21.0 Sodium 137.0 Potassium Chloride 107.0 Carbon Dioxide Anion Gap BUN Creatinine Est GFR ( Amer) Est GFR (Non-Af Amer) Random Glucose Calcium Phosphorus Magnesium Total Bilirubin AST ALT Alkaline Phosphatase Ammonia Total Protein Albumin Globulin Albumin/Globulin Ratio Venous Blood Potassium 3.7 Urine Color Yellow Urine Clarity Slighty-cloudy Urine pH 7.0 Ur Specific [place] 1.016 Urine Protein Negative Urine Glucose (UA) Neg Urine Ketones Negative Urine Blood Small Urine Nitrate Negative Urine Bilirubin Negative Urine Urobilinogen 4.0 Ur Leukocyte Esterase Neg Urine RBC (Auto) 3 Urine Microscopic WBC 1 Ur Squamous Epith Cells 1 Urine Bacteria Rare Alcohol, Quantitative Influenza Typ A,B (EIA) Negative for flu a/b Blood Type Antibody Screen Crossmatch BBK History Checked 05/13/18 05/13/18 05/13/18 00:27 02:26 03:45 WBC 4.7 L RBC 2.11 L Hgb 6.0 L* D Hct 18.7 L MCV 88.7 D MCH 28.4 MCHC 32.0 L RDW 20.7 H Plt Count 59 L D MPV 8.2 Neut % (Auto) 74.5 Lymph % (Auto) 14.7 L [place] % (Auto) 9.0 Eos % (Auto) 1.1 Baso % (Auto) 0.7 Neut # (Auto) 3.5 Lymph # (Auto) 0.7 L [place] # (Auto) 0.4 Eos # (Auto) 0.1 Baso # (Auto) 0.0 Total Counted Neutrophils % (Manual) Band Neutrophils % Lymphocytes % (Manual) Reactive Lymphs % Monocytes % (Manual) Eosinophils % (Manual) Basophils % (Manual) Metamyelocytes % Myelocytes % Promyelocytes % Blast Cells % Plasma Cell % (Manual) Nucleated RBC % Hypersegmented Polys Smudge Cells Toxic Granulation Dohle Bodies Antonio Rods Platelet Estimate Plt Clumps, EDTA Large Platelets Giant Platelets RBC Morphology Polychromasia Hypochromasia (manual) Poikilocytosis (manual Basophilic Stippling Anisocytosis (manual) Microcytosis (manual) Macrocytosis (manual) Spherocytes Sickle Cells Target Cells Tear Drop Cells Ovalocytes Stomatocytes Helmet Cells Chanel-Seibert Bodies [place]ax Cells Acanthocytes (Spur) Rouleaux Schistocytes PT INR APTT pO2 58 H VBG pH 7.49 H VBG pCO2 30 L VBG HCO3 25.1 VBG Total CO2 23.8 VBG O2 Sat (Calc) 100.4 H VBG Base Excess 0.4 VBG Potassium 3.6 Glucose 117 H Lactate 0.9 FiO2 21.0 Sodium 137.0 Potassium Chloride 109.0 H Carbon Dioxide Anion Gap BUN Creatinine Est GFR ( Amer) Est GFR (Non-Af Amer) Random Glucose Calcium Phosphorus Magnesium Total Bilirubin AST ALT Alkaline Phosphatase Ammonia Total Protein Albumin Globulin Albumin/Globulin Ratio Venous Blood Potassium 3.6 Urine Color Urine Clarity Urine pH Ur Specific Panacea Urine Protein Urine Glucose (UA) Urine Ketones Urine Blood Urine Nitrate Urine Bilirubin Urine Urobilinogen Ur Leukocyte Esterase Urine RBC (Auto) Urine Microscopic WBC Ur Squamous Epith Cells Urine Bacteria Alcohol, Quantitative Influenza Typ A,B (EIA) Blood Type O POSITIVE Antibody Screen Negative Crossmatch See Detail BBK History Checked Patient has bt 05/13/18 05/13/18 03:45 03:45 WBC RBC Hgb Hct MCV MCH MCHC RDW Plt Count MPV Neut % (Auto) Lymph % (Auto) [place] % (Auto) Eos % (Auto) Baso % (Auto) Neut # (Auto) Lymph # (Auto) [place] # (Auto) Eos # (Auto) Baso # (Auto) Total Counted Neutrophils % (Manual) Band Neutrophils % Lymphocytes % (Manual) Reactive Lymphs % Monocytes % (Manual) Eosinophils % (Manual) Basophils % (Manual) Metamyelocytes % Myelocytes % Promyelocytes % Blast Cells % Plasma Cell % (Manual) Nucleated RBC % Hypersegmented Polys Smudge Cells Toxic Granulation Dohle Bodies Antonio Rods Platelet Estimate Plt Clumps, EDTA Large Platelets Giant Platelets RBC Morphology Polychromasia Hypochromasia (manual) Poikilocytosis (manual Basophilic Stippling Anisocytosis (manual) Microcytosis (manual) Macrocytosis (manual) Spherocytes Sickle Cells Target Cells Tear Drop Cells Ovalocytes Stomatocytes Helmet Cells Chanel-Seibert Bodies Rayna Cells Acanthocytes (Spur) Rouleaux Schistocytes PT INR APTT pO2 VBG pH VBG pCO2 VBG HCO3 VBG Total CO2 VBG O2 Sat (Calc) VBG Base Excess VBG Potassium Glucose Lactate FiO2 Sodium Potassium Chloride Carbon Dioxide Anion Gap BUN Creatinine Est GFR ( Amer) Est GFR (Non-Af Amer) Random Glucose Calcium Phosphorus Magnesium Total Bilirubin AST ALT Alkaline Phosphatase Ammonia 186 H* D Total Protein Albumin Globulin Albumin/Globulin Ratio Venous Blood Potassium Urine Color Urine Clarity Urine pH Ur Specific [place]acea Urine Protein Urine Glucose (UA) Urine Ketones Urine Blood Urine Nitrate Urine Bilirubin Urine Urobilinogen Ur Leukocyte Esterase Urine RBC (Auto) Urine Microscopic WBC Ur Squamous Epith Cells Urine Bacteria Alcohol, Quantitative < 10 Influenza Typ A,B (EIA) Blood Type Antibody Screen Crossmatch BBK History Checked Attending/Attestation - Attestation I have personally seen and examined this patient.: Yes I have fully participated in the care of the patient.: Yes I have reviewed all pertinent clinical information: Yes Notes (Text): 05/13/18 05:09 I saw, examined and discussed this patient with Dr Page. I Agree with the assessment and plan above which represent my direct input. This is a 53 years male, who is Alcohol dependent, discharged from the [facility] on 05/10/18 with dx of GI bleed where he received multiple units of PRBC. EGD done on 05/10/18 :- Normal Esophagus; Multiple dispersed Non-bleeding eros ions were found in the entire examined stomach. normal Duodenum. He returned to the ED daily since discharge with different complains. On his Third visit to the ED on 05/12/18 he complained of Hemetemesis, and in the ED he had bouts of Hematachiza. His Hb was 6.0 with a temperature of 101.7 and Ammonia of 186. For his GI bleed with Blood loss Anemia, he will be seen by the Gastroent erologist. For his Hyperammonemia he will be given Lactulose NM QID The CT lung showed signs of Bilateral basal multifocal Bronchopneumonia which we will treat with Vancomycin and Zosyn. 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 05/13/18 05:28
[2018-05-13] MEDS ORDERED: Magnesium Sulfate 1 gm in D5W 1 GM/100 ML BAG IVPB ONE (04:13)
[2018-05-13] MEDS ORDERED: Lactulose 10 gm/15 ml (Rectal Use) PR ONE ×2 (04:15→08:00)
[2018-05-13] MEDS ORDERED: Multivitamin (MVI) 10 ML, Thiamine 100 MG, Folic Acid 1 MG in Dextrose 5%/0.45% NS 1,00... IV ONE (05:41)
[2018-05-13] MEDS ORDERED: Lactulose 10 gm/15 ml (Rectal Use) PR SCH (09:00)
[2018-05-13] MEDS ORDERED: Thiamine 100 mg/ml Inj IM SCH (09:00)
--- NOTE | 2018-05-13 09:39 | CARD ---
APPROVED REPORT Date of service: 05/12/2018 EKG Measurement Heart [id number] <Conclusion> Sinus tachycardia Minimal voltage criteria for LVH, may be normal variant Otherwise normal ECG
--- NOTE | 2018-05-13 10:57 | RAD ---
Date of service: 05/12/2018 PROCEDURE: CHEST RADIOGRAPH, 1 VIEW HISTORY: fever, cough, sepsis COMPARISON: 05/12/2018 FINDINGS: LUNGS: Clear. PLEURA: No pneumothorax or pleural fluid seen. CARDIOVASCULAR: No aortic atherosclerotic calcification present. Normal. OSSEOUS STRUCTURES: No significant abnormalities. VISUALIZED UPPER ABDOMEN: Normal. OTHER FINDINGS: None. IMPRESSION: No active disease.
--- NOTE | 2018-05-13 11:07 | CP.PCM.CON ---
History of Present Illness - History of Present Illness History of Present Illness: consult requested for alcohol abuse attempted to interview pt twice, pt sedated and drowsy, unable to respond to questions , to be noted pt has altered mental status with elevated NH3 level and low HGB , no reported current episodes of agitation information obtained through reviewing the chart and talking to staff pt is 53 YO male without any previous noted psychiatric treatment , with PMHx of multiple admissions for GI bleed, ETOH abuse, cirrhsis (s/p TIPS), esophageal varices, anemia presents to [facility] ED for cough and fever. Of note, last ETOH use was "few days ago." Pt is a poor historian. pt not responding to any questions , unable to further assess mental status Past Patient History - Infectious Disease Hx of Infectious Diseases: None - Tetanus Immunizations Tetanus Immunization: Unknown - Past Medical History & Family History Past Medical History?: Yes - Past Social History Smoking Status: Former Smoker Alcohol: Occasional Home Situation {Lives}: Homeless - CARDIAC Hx Cardiac Disorders: Yes - PULMONARY Hx Respiratory Disorders: Yes - NEUROLOGICAL Hx Neurological Disorder: Yes - HEENT Hx HEENT Problems: No - RENAL Hx Chronic Kidney Disease: No - ENDOCRINE/METABOLIC Hx Endocrine Disorders: No - HEMATOLOGICAL/ONCOLOGICAL Hx Blood Disorders: Yes - INTEGUMENTARY Hx Dermatological Problems: Yes - MUSCULOSKELETAL/RHEUMATOLOGICAL Hx Fractures: Yes - GASTROINTESTINAL Hx Gall Bladder Disease: Yes (Cholelithiasis) Hx Gastritis: Yes Hx Pancreatitis: Yes - GENITOURINARY/GYNECOLOGICAL Hx Sexually Transmitted Disorders: No - PSYCHIATRIC Hx Psychophysiologic Disorder: Yes - SURGICAL HISTORY Hx Surgeries: Yes - ANESTHESIA Hx Anesthesia: Yes Hx Anesthesia Reactions: No Hx Malignant Hyperthermia: No Meds Allergies/Adverse Reactions: Allergies Allergy/AdvReac Type Severity Reaction Status Date / Time aspirin AdvReac GI Bleed Verified 05/12/18 21:04 ibuprofen [From Motrin] AdvReac GI Bleed Verified 05/12/18 21:04 naproxen AdvReac GI bleed Verified 05/12/18 21:04 NSAIDS (Non-Steroidal AdvReac GI bleed Verified 05/12/18 21:04 Anti-Inflamma - Medications Medications: Current Medications Acetaminophen (Tylenol 650 Mg Supp) 650 mg AK Q6 PRN PRN Reason: Fever >100.4 F Vancomycin HCl 1 gm/ Sodium (Chloride) 250 mls @ 166.667 mls/hr IVPB Q12H JANNIE; Protocol Piperacillin Sod/Tazobactam (Sod 3.375 gm/ Sodium Chloride) 100 mls @ 100 mls/hr IVPB Q6 JANNIE; Protocol Multivitamins/Vitamin C 10 ml/Thiamine HCl 100 mg/ Folic Acid 1 mg/ Dextrose/Sodium Chloride 1,011.2 mls @ 100 mls/hr IV .Q10H7M ONE Stop: 05/13/18 15:47 Last Admin: 05/13/18 07:27 Dose: 100 mls/hr Pantoprazole Sodium 40 mg/ (Sodium Chloride) 100 mls @ 20 mls/hr IVPB Q5H JANNIE Ceftriaxone Sodium 1 gm/ (Sodium Chloride) 100 mls @ 100 mls/hr IVPB DAILY JANNIE; Protocol Lactulose (Generlac) 200 gm AK Q4H JANNIE Lorazepam (Ativan) 2 mg IVP Q6 PRN PRN Reason: Symptoms of alcohol withdrawl Ondansetron HCl (Zofran Inj) 4 mg IVP Q6 PRN PRN Reason: Nausea/Vomiting Thiamine HCl (Vitamin B1 Inj) 100 mg IM DAILY JANNIE Stop: 05/16/18 09:01 Results - Vital Signs Recent Vital Signs: Last Vital Signs Temp 98.6 F 05/13/18 10:05 Pulse 77 05/13/18 10:05 Resp 11 L 05/13/18 10:05 BP 115/59 L 05/13/18 10:05 Pulse Ox 100 05/13/18 09:02 - Labs Result Diagrams: 05/13/18 02:26 05/12/18 21:35 Labs: Laboratory Results - last 24 hr 05/12/18 05/12/18 05/12/18 21:35 21:35 21:35 WBC 4.9 D RBC 3.23 L Hgb 9.1 L Hct 27.8 L MCV 86.1 MCH 28.1 MCHC 32.6 L RDW 20.4 H Plt Count 106 L D MPV 8.2 Neut % (Auto) 82.9 H Lymph % (Auto) 5.9 L [place] % (Auto) 6.5 Eos % (Auto) 2.3 Baso % (Auto) 2.4 H Neut # (Auto) 4.0 Lymph # (Auto) 0.3 L [place] # (Auto) 0.3 Eos # (Auto) 0.1 Baso # (Auto) 0.1 Total Counted Cancelled Neutrophils % (Manual) Cancelled Band Neutrophils % Cancelled Lymphocytes % (Manual) Cancelled Reactive Lymphs % Cancelled Monocytes % (Manual) Cancelled Eosinophils % (Manual) Cancelled Basophils % (Manual) Cancelled Metamyelocytes % Cancelled Myelocytes % Cancelled Promyelocytes % Cancelled Blast Cells % Cancelled Plasma Cell % (Manual) Cancelled Nucleated RBC % Cancelled Hypersegmented Polys Cancelled Smudge Cells Cancelled Toxic Granulation Cancelled Dohle Bodies Cancelled Antonio Rods Cancelled Platelet Estimate Cancelled Plt Clumps, EDTA Cancelled Large Platelets Cancelled Giant Platelets Cancelled RBC Morphology Cancelled Polychromasia Cancelled Hypochromasia (manual) Cancelled Poikilocytosis (manual Cancelled Basophilic Stippling Cancelled Anisocytosis (manual) Cancelled Microcytosis (manual) Cancelled Macrocytosis (manual) Cancelled Spherocytes Cancelled Sickle Cells Cancelled Target Cells Cancelled Tear Drop Cells Cancelled Ovalocytes Cancelled Stomatocytes Cancelled Helmet Cells Cancelled [place] Bodies Cancelled [place] Cells Cancelled Acanthocytes (Spur) Cancelled Rouleaux Cancelled Schistocytes Cancelled PT 16.1 H INR 1.4 APTT 35.0 pO2 VBG pH VBG pCO2 VBG HCO3 VBG Total CO2 VBG O2 Sat (Calc) VBG Base Excess VBG Potassium Glucose Lactate FiO2 Sodium 137 Potassium 4.0 Chloride 106 Carbon Dioxide 22 Anion Gap 13 BUN 12 Creatinine 0.6 L Est GFR ( Amer) > 60 Est GFR (Non-Af Amer) > 60 Random Glucose 122 H Calcium 8.2 L Phosphorus 3.1 Magnesium 1.3 L Total Bilirubin 2.0 H AST 100 H ALT 51 Alkaline Phosphatase 192 H Ammonia Total Protein 7.5 Albumin 3.3 L Globulin 4.2 H Albumin/Globulin Ratio 0.8 L Lipase Venous Blood Potassium Urine Color Urine Clarity Urine pH Ur Specific [place] Urine Protein Urine Glucose (UA) Urine Ketones Urine Blood Urine Nitrate Urine Bilirubin Urine Urobilinogen Ur Leukocyte Esterase Urine RBC (Auto) Urine Microscopic WBC Ur Squamous Epith Cells Urine Bacteria Alcohol, Quantitative Influenza Typ A,B (EIA) Blood Type Antibody Screen Crossmatch BBK History Checked 05/12/18 05/12/18 05/12/18 21:35 21:41 22:40 WBC RBC Hgb Hct MCV MCH MCHC RDW Plt Count MPV Neut % (Auto) Lymph % (Auto) [place] % (Auto) Eos % (Auto) Baso % (Auto) Neut # (Auto) Lymph # (Auto) [place] # (Auto) Eos # (Auto) Baso # (Auto) Total Counted Neutrophils % (Manual) Band Neutrophils % Lymphocytes % (Manual) Reactive Lymphs % Monocytes % (Manual) Eosinophils % (Manual) Basophils % (Manual) Metamyelocytes % Myelocytes % Promyelocytes % Blast Cells % Plasma Cell % (Manual) Nucleated RBC % Hypersegmented Polys Smudge Cells Toxic Granulation Dohle Bodies Antonio Rods Platelet Estimate Plt Clumps, EDTA Large Platelets Giant Platelets RBC Morphology Polychromasia Hypochromasia (manual) Poikilocytosis (manual Basophilic Stippling Anisocytosis (manual) Microcytosis (manual) Macrocytosis (manual) Spherocytes Sickle Cells Target Cells Tear Drop Cells Ovalocytes Stomatocytes Helmet Cells [place] Bodies [place] Cells Acanthocytes (Spur) Rouleaux Schistocytes PT INR APTT pO2 35 VBG pH 7.48 H VBG pCO2 33 L VBG HCO3 25.5 VBG Total CO2 25.6 VBG O2 Sat (Calc) 77.3 H VBG Base Excess 1.6 VBG Potassium 3.7 Glucose 108 Lactate 1.2 FiO2 21.0 Sodium 137.0 Potassium Chloride 107.0 Carbon Dioxide Anion Gap BUN Creatinine Est GFR ( Amer) Est GFR (Non-Af Amer) Random Glucose Calcium Phosphorus Magnesium Total Bilirubin AST ALT Alkaline Phosphatase Ammonia Total Protein Albumin Globulin Albumin/Globulin Ratio Lipase Venous Blood Potassium 3.7 Urine Color Yellow Urine Clarity Slighty-cloudy Urine pH 7.0 Ur Specific [place] 1.016 Urine Protein Negative Urine Glucose (UA) Neg Urine Ketones Negative Urine Blood Small Urine Nitrate Negative Urine Bilirubin Negative Urine Urobilinogen 4.0 Ur Leukocyte Esterase Neg Urine RBC (Auto) 3 Urine Microscopic WBC 1 Ur Squamous Epith Cells 1 Urine Bacteria Rare Alcohol, Quantitative Influenza Typ A,B (EIA) Negative for flu a/b Blood Type Antibody Screen Crossmatch BBK History Checked 05/13/18 05/13/18 05/13/18 00:27 02:26 03:45 WBC 4.7 L RBC 2.11 L Hgb 6.0 L* D Hct 18.7 L MCV 88.7 D MCH 28.4 MCHC 32.0 L RDW 20.7 H Plt Count 59 L D MPV 8.2 Neut % (Auto) 74.5 Lymph % (Auto) 14.7 L [place] % (Auto) 9.0 Eos % (Auto) 1.1 Baso % (Auto) 0.7 Neut # (Auto) 3.5 Lymph # (Auto) 0.7 L [place] # (Auto) 0.4 Eos # (Auto) 0.1 Baso # (Auto) 0.0 Total Counted Neutrophils % (Manual) Band Neutrophils % Lymphocytes % (Manual) Reactive Lymphs % Monocytes % (Manual) Eosinophils % (Manual) Basophils % (Manual) Metamyelocytes % Myelocytes % Promyelocytes % Blast Cells % Plasma Cell % (Manual) Nucleated RBC % Hypersegmented Polys Smudge Cells Toxic Granulation Dohle Bodies Antonio Rods Platelet Estimate Plt Clumps, EDTA Large Platelets Giant Platelets RBC Morphology Polychromasia Hypochromasia (manual) Poikilocytosis (manual Basophilic Stippling Anisocytosis (manual) Microcytosis (manual) Macrocytosis (manual) Spherocytes Sickle Cells Target Cells Tear Drop Cells Ovalocytes Stomatocytes Helmet Cells [place] Bodies Rayna Cells Acanthocytes (Spur) Rouleaux Schistocytes PT INR APTT pO2 58 H VBG pH 7.49 H VBG pCO2 30 L VBG HCO3 25.1 VBG Total CO2 23.8 VBG O2 Sat (Calc) 100.4 H VBG Base Excess 0.4 VBG Potassium 3.6 Glucose 117 H Lactate 0.9 FiO2 21.0 Sodium 137.0 Potassium Chloride 109.0 H Carbon Dioxide Anion Gap BUN Creatinine Est GFR ( Amer) Est GFR (Non-Af Amer) Random Glucose Calcium Phosphorus Magnesium Total Bilirubin AST ALT Alkaline Phosphatase Ammonia Total Protein Albumin Globulin Albumin/Globulin Ratio Lipase Venous Blood Potassium 3.6 Urine Color Urine Clarity Urine pH Ur Specific [place] Urine Protein Urine Glucose (UA) Urine Ketones Urine Blood Urine Nitrate Urine Bilirubin Urine Urobilinogen Ur Leukocyte Esterase Urine RBC (Auto) Urine Microscopic WBC Ur Squamous Epith Cells Urine Bacteria Alcohol, Quantitative Influenza Typ A,B (EIA) Blood Type O POSITIVE Antibody Screen Negative Crossmatch See Detail BBK History Checked Patient has bt 05/13/18 05/13/18 05/13/18 03:45 03:45 03:45 WBC RBC Hgb Hct MCV MCH MCHC RDW Plt Count MPV Neut % (Auto) Lymph % (Auto) [place] % (Auto) Eos % (Auto) Baso % (Auto) Neut # (Auto) Lymph # (Auto) [place] # (Auto) Eos # (Auto) Baso # (Auto) Total Counted Neutrophils % (Manual) Band Neutrophils % Lymphocytes % (Manual) Reactive Lymphs % Monocytes % (Manual) Eosinophils % (Manual) Basophils % (Manual) Metamyelocytes % Myelocytes % Promyelocytes % Blast Cells % Plasma Cell % (Manual) Nucleated RBC % Hypersegmented Polys Smudge Cells Toxic Granulation Dohle Bodies Antonio Rods Platelet Estimate Plt Clumps, EDTA Large Platelets Giant Platelets RBC Morphology Polychromasia Hypochromasia (manual) Poikilocytosis (manual Basophilic Stippling Anisocytosis (manual) Microcytosis (manual) Macrocytosis (manual) Spherocytes Sickle Cells Target Cells Tear Drop Cells Ovalocytes Stomatocytes Helmet Cells [place] Bodies [place] Cells Acanthocytes (Spur) Rouleaux Schistocytes PT INR APTT pO2 VBG pH VBG pCO2 VBG HCO3 VBG Total CO2 VBG O2 Sat (Calc) VBG Base Excess VBG Potassium Glucose Lactate FiO2 Sodium Potassium Chloride Carbon Dioxide Anion Gap BUN Creatinine Est GFR ( Amer) Est GFR (Non-Af Amer) Random Glucose Calcium Phosphorus Magnesium Total Bilirubin AST ALT Alkaline Phosphatase Ammonia 186 H* D Total Protein Albumin Globulin Albumin/Globulin Ratio Lipase 154 Venous Blood Potassium Urine Color Urine Clarity Urine pH Ur Specific [place] Urine Protein Urine Glucose (UA) Urine Ketones Urine Blood Urine Nitrate Urine Bilirubin Urine Urobilinogen Ur Leukocyte Esterase Urine RBC (Auto) Urine Microscopic WBC Ur Squamous Epith Cells Urine Bacteria Alcohol, Quantitative < 10 Influenza Typ A,B (EIA) Blood Type Antibody Screen Crossmatch BBK History Checked Assessment & Plan - Assessment and Plan (Free Text) Assessment: delirium, hpoactive alcohol use disorder severe Plan: please consult with psychiatry when pt is alert and awake and can participate in an interview recommend starting ativan protocol if pt is going through alcohol withdrawal
--- NOTE | 2018-05-13 11:12 | CP.CCUPN ---
<Vik Stacy - Last Filed: 05/13/18 11:52> CCU Subjective - Physician Review Subjective (Free Text): 05/13/18 10:45 53 y/o M with a PMHx of multiple GI bleeding, alcohol abuse, alcoholic cirrhosis (s/P Tips) and esophageal varices was admitted to ICU due to acute GI bleeding, hypotension, sepsis with pneumonia as source, and acute anemia. Pt presented to ED with cough and fever, developed hematemesis and hematochezia. Anemia noted on bloodwork. --Pt still drinks alcohol, has recently been discharged from this hospital 3 days ago, during this past hospitalization, pt received 2 unit PRBC's and endoscopy showed multiple dispersed non-bleeding erosions in the entire examined stomach. --Today, pt was seen and examined by bedside. Pt with altered mental status, responds to tactile stimuli only. CCU Objective - Vital Signs / Intake & Output Vital Signs (Last 4 hours): Vital Signs Temp Pulse Resp BP Pulse Ox 05/13/18 10:05 98.6 F 77 11 L 115/59 L 05/13/18 09:02 82 13 100/59 L 100 05/13/18 08:51 83 18 100 05/13/18 08:21 99.1 F 89 18 93/51 L 05/13/18 08:07 99.1 F 89 18 93/51 L 05/13/18 07:22 98.9 F 86 16 101/50 L Intake and Output (Last 8hrs): Intake & Output 05/12/18 05/13/18 05/13/18 22:59 06:59 14:59 Intake Total 325 Balance 325 Weight 77.111 kg Intake: Blood Product 325 Apheresis Rbc Cp2d As3 Lr 325 2nd Unit [id number] - Physical Exam Physical Exam Limitations: Positive for: Altered Mental Status, Uncooperative Head: Positive for: Atraumatic, Normocephalic Pupils: Positive for: PERRL Mouth: Positive for: Dry Neck: Positive for: Normal Range of Motion. Negative for: Meningeal Signs, Lymphadenopathy Respiratory/Chest: Positive for: Decreased Breath Sounds (bilateral lower lobes), Rhonchi (bilateral lower lobes). Negative for: Respiratory Distress, Accessory Muscle Use Cardiovascular: Positive for: Normal S1, S2. Negative for: Tachycardic Abdomen: Positive for: Distention, Normal Bowel Sounds. Negative for: Tenderness, Guarding - Medications Active Medications: Active Medications Generic Name Dose Route Start Last Admin Trade Name Freq PRN Reason Stop Dose Admin Acetaminophen 650 mg 05/13/18 03:32 Tylenol 650 Mg Supp VA Q6 PRN Fever >100.4 F Vancomycin HCl 1 gm/ Sodium 250 mls @ 166.667 mls/hr 05/13/18 13:00 Chloride IVPB Q12H JANNIE Protocol Piperacillin Sod/Tazobactam 100 mls @ 100 mls/hr 05/13/18 09:30 Sod 3.375 gm/ Sodium Chloride IVPB Q6 JANNIE Protocol Multivitamins/Vitamin C 10 ml/ 1,011.2 mls @ 100 mls/hr 05/13/18 05:41 05/13/18 07:27 Thiamine HCl 100 mg/ Folic IV 05/13/18 15:47 100 mls/hr Acid 1 mg/ Dextrose/Sodium .[id number] ONE Administration Chloride Pantoprazole Sodium 40 mg/ 100 mls @ 20 mls/hr 05/13/18 11:00 Sodium Chloride IVPB Q5H JANNIE 8 MG/HR Ceftriaxone Sodium 1 gm/ 100 mls @ 100 mls/hr 05/13/18 11:00 Sodium Chloride IVPB DAILY JANNIE Protocol Lactulose 200 gm 05/13/18 11:00 Generlac VA Q4H JANNIE Lorazepam 2 mg 05/13/18 04:21 Ativan IVP Q6 PRN Symptoms of alcohol withdrawl Ondansetron HCl 4 mg 05/13/18 03:35 Zofran Inj IVP Q6 PRN Nausea/Vomiting Thiamine HCl 100 mg 05/14/18 09:00 Vitamin B1 Inj IM 05/16/18 09:01 DAILY JANNIE - Patient Studies Lab Studies: Lab Studies 05/13/18 05/13/18 05/13/18 Range/Units 03:45 03:45 03:45 WBC (4.8-10.8) K/uL RBC (4.40-5.90) Mil/uL Hgb (12.0-18.0) g/dL Hct (35.0-51.0) % MCV (80.0-94.0) fl MCH (27.0-31.0) pg MCHC (33.0-37.0) g/dL RDW (11.5-14.5) % Plt Count (130-400) K/uL MPV (7.2-11.7) fl Neut % (Auto) (50.0-75.0) % Lymph % (Auto) (20.0-40.0) % Dillon % (Auto) (0.0-10.0) % Eos % (Auto) (0.0-4.0) % Baso % (Auto) (0.0-2.0) % Neut # (Auto) (1.8-7.0) K/uL Lymph # (Auto) (1.0-4.3) K/uL [place] # (Auto) (0.0-0.8) K/uL Eos # (Auto) (0.0-0.7) K/uL Baso # (Auto) (0.0-0.2) K/uL Total Counted Neutrophils % (Manual) Band Neutrophils % Lymphocytes % (Manual) Reactive Lymphs % Monocytes % (Manual) Eosinophils % (Manual) Basophils % (Manual) Metamyelocytes % Myelocytes % Promyelocytes % Blast Cells % Plasma Cell % (Manual) Nucleated RBC % Hypersegmented Polys Smudge Cells Toxic Granulation Dohle Bodies Antonio Rods Platelet Estimate Plt Clumps, EDTA Large Platelets Giant Platelets RBC Morphology Polychromasia Hypochromasia (manual) Poikilocytosis (manual Basophilic Stippling Anisocytosis (manual) Microcytosis (manual) Macrocytosis (manual) Spherocytes Sickle Cells Target Cells Tear Drop Cells Ovalocytes Stomatocytes Helmet Cells Chanel-[place] Bodies Broadbent Cells Acanthocytes (Spur) Rouleaux Schistocytes PT (9.8-13.1) Seconds INR APTT (25.6-37.1) Seconds pO2 (30-55) mm/Hg VBG pH (7.32-7.43) VBG pCO2 (40-60) mmHg VBG HCO3 mmol/L VBG Total CO2 (22-28) mmol/L VBG O2 Sat (Calc) (40-65) % VBG Base Excess (0.0-2.0) mmol/L VBG Potassium (3.6-5.2) mmol/L Glucose (75-110) mg/dL Lactate (0.7-2.1) mmol/L FiO2 % Sodium (132-148) mmol/l Potassium (3.6-5.0) MMOL/L Chloride (98-107) mmol/L Carbon Dioxide (22-30) mmol/L Anion Gap (10-20) BUN (9-20) mg/dl Creatinine (0.8-1.5) mg/dl Est GFR ( Amer) Est GFR (Non-Af Amer) Random Glucose (75-110) mg/dL Calcium (8.4-10.2) mg/dL Phosphorus (2.5-4.5) mg/dl Magnesium (1.6-2.3) MG/DL Total Bilirubin (0.2-1.3) mg/dl AST (17-59) U/L ALT (21-72) U/L Alkaline Phosphatase (38-126) U/L Ammonia 186 H* D (16-60) umo/L Total Protein (6.3-8.2) G/DL Albumin (3.5-5.0) g/dL Globulin (2.2-3.9) gm/dL Albumin/Globulin Ratio (1.0-2.1) Lipase 154 (23-300) U/L Venous Blood Potassium (3.6-5.2) mmol/L Urine Color (YELLOW) Urine Clarity (Clear) Urine pH (5.0-8.0) Ur Specific [place] (1.003-1.030) Urine Protein (NEGATIVE) mg/dL Urine Glucose (UA) (Normal) mg/dL Urine Ketones (NEGATIVE) mg/dL Urine Blood (NEGATIVE) Urine Nitrate (NEGATIVE) Urine Bilirubin (NEGATIVE) Urine Urobilinogen (0.2-1.0) mg/dL Ur Leukocyte Esterase (Negative) [place]/uL Urine RBC (Auto) (0-3) /hpf Urine Microscopic WBC (0-5) /hpf Ur Squamous Epith Cells (0-5) /hpf Urine Bacteria (<OCC) Alcohol, Quantitative < 10 (0-10) mg/dl Influenza Typ A,B (EIA) (NEGATIVE) Blood Type Antibody Screen Crossmatch BBK History Checked 05/13/18 05/13/18 05/13/18 Range/Units 03:45 02:26 00:27 WBC 4.7 L (4.8-10.8) K/uL RBC 2.11 L (4.40-5.90) Mil/uL Hgb 6.0 L* D (12.0-18.0) g/dL Hct 18.7 L (35.0-51.0) % MCV 88.7 D (80.0-94.0) fl MCH 28.4 (27.0-31.0) pg MCHC 32.0 L (33.0-37.0) g/dL RDW 20.7 H (11.5-14.5) % Plt Count 59 L D (130-400) K/uL MPV 8.2 (7.2-11.7) fl Neut % (Auto) 74.5 (50.0-75.0) % Lymph % (Auto) 14.7 L (20.0-40.0) % Dillon % (Auto) 9.0 (0.0-10.0) % Eos % (Auto) 1.1 (0.0-4.0) % Baso % (Auto) 0.7 (0.0-2.0) % Neut # (Auto) 3.5 (1.8-7.0) K/uL Lymph # (Auto) 0.7 L (1.0-4.3) K/uL Dillon # (Auto) 0.4 (0.0-0.8) K/uL Eos # (Auto) 0.1 (0.0-0.7) K/uL Baso # (Auto) 0.0 (0.0-0.2) K/uL Total Counted Neutrophils % (Manual) Band Neutrophils % Lymphocytes % (Manual) Reactive Lymphs % Monocytes % (Manual) Eosinophils % (Manual) Basophils % (Manual) Metamyelocytes % Myelocytes % Promyelocytes % Blast Cells % Plasma Cell % (Manual) Nucleated RBC % Hypersegmented Polys Smudge Cells Toxic Granulation Dohle Bodies Antonio Rods Platelet Estimate Plt Clumps, EDTA Large Platelets Giant Platelets RBC Morphology Polychromasia Hypochromasia (manual) Poikilocytosis (manual Basophilic Stippling Anisocytosis (manual) Microcytosis (manual) Macrocytosis (manual) Spherocytes Sickle Cells Target Cells Tear Drop Cells Ovalocytes Stomatocytes Helmet Cells Chanel-[place] Bodies Broadbent Cells Acanthocytes (Spur) Rouleaux Schistocytes PT (9.8-13.1) Seconds INR APTT (25.6-37.1) Seconds pO2 58 H (30-55) mm/Hg VBG pH 7.49 H (7.32-7.43) VBG pCO2 30 L (40-60) mmHg VBG HCO3 25.1 mmol/L VBG Total CO2 23.8 (22-28) mmol/L VBG O2 Sat (Calc) 100.4 H (40-65) % VBG Base Excess 0.4 (0.0-2.0) mmol/L VBG Potassium 3.6 (3.6-5.2) mmol/L Glucose 117 H (75-110) mg/dL Lactate 0.9 (0.7-2.1) mmol/L FiO2 21.0 % Sodium 137.0 (132-148) mmol/l Potassium (3.6-5.0) MMOL/L Chloride 109.0 H (98-107) mmol/L Carbon Dioxide (22-30) mmol/L Anion Gap (10-20) BUN (9-20) mg/dl Creatinine (0.8-1.5) mg/dl Est GFR ( Amer) Est GFR (Non-Af Amer) Random Glucose (75-110) mg/dL Calcium (8.4-10.2) mg/dL Phosphorus (2.5-4.5) mg/dl Magnesium (1.6-2.3) MG/DL Total Bilirubin (0.2-1.3) mg/dl AST (17-59) U/L ALT (21-72) U/L Alkaline Phosphatase (38-126) U/L Ammonia (16-60) umo/L Total Protein (6.3-8.2) G/DL Albumin (3.5-5.0) g/dL Globulin (2.2-3.9) gm/dL Albumin/Globulin Ratio (1.0-2.1) Lipase (23-300) U/L Venous Blood Potassium 3.6 (3.6-5.2) mmol/L Urine Color (YELLOW) Urine Clarity (Clear) Urine pH (5.0-8.0) Ur Specific [place] (1.003-1.030) Urine Protein (NEGATIVE) mg/dL Urine Glucose (UA) (Normal) mg/dL Urine Ketones (NEGATIVE) mg/dL Urine Blood (NEGATIVE) Urine Nitrate (NEGATIVE) Urine Bilirubin (NEGATIVE) Urine Urobilinogen (0.2-1.0) mg/dL Ur Leukocyte Esterase (Negative) [place]/uL Urine RBC (Auto) (0-3) /hpf Urine Microscopic WBC (0-5) /hpf Ur Squamous Epith Cells (0-5) /hpf Urine Bacteria (<OCC) Alcohol, Quantitative (0-10) mg/dl Influenza Typ A,B (EIA) (NEGATIVE) Blood Type O POSITIVE Antibody Screen Negative Crossmatch See Detail BBK History Checked Patient has bt 05/12/18 05/12/18 05/12/18 Range/Units 22:40 21:41 21:35 WBC (4.8-10.8) K/uL RBC (4.40-5.90) Mil/uL Hgb (12.0-18.0) g/dL Hct (35.0-51.0) % MCV (80.0-94.0) fl MCH (27.0-31.0) pg MCHC (33.0-37.0) g/dL RDW (11.5-14.5) % Plt Count (130-400) K/uL MPV (7.2-11.7) fl Neut % (Auto) (50.0-75.0) % Lymph % (Auto) (20.0-40.0) % Dillon % (Auto) (0.0-10.0) % Eos % (Auto) (0.0-4.0) % Baso % (Auto) (0.0-2.0) % Neut # (Auto) (1.8-7.0) K/uL Lymph # (Auto) (1.0-4.3) K/uL [place] # (Auto) (0.0-0.8) K/uL Eos # (Auto) (0.0-0.7) K/uL Baso # (Auto) (0.0-0.2) K/uL Total Counted Neutrophils % (Manual) Band Neutrophils % Lymphocytes % (Manual) Reactive Lymphs % Monocytes % (Manual) Eosinophils % (Manual) Basophils % (Manual) Metamyelocytes % Myelocytes % Promyelocytes % Blast Cells % Plasma Cell % (Manual) Nucleated RBC % Hypersegmented Polys Smudge Cells Toxic Granulation Dohle Bodies Antonio Rods Platelet Estimate Plt Clumps, EDTA Large Platelets Giant Platelets RBC Morphology Polychromasia Hypochromasia (manual) Poikilocytosis (manual Basophilic Stippling Anisocytosis (manual) Microcytosis (manual) Macrocytosis (manual) Spherocytes Sickle Cells Target Cells Tear Drop Cells Ovalocytes Stomatocytes Helmet Cells Chanel-[place] Bodies Rayna Cells Acanthocytes (Spur) Rouleaux Schistocytes PT (9.8-13.1) Seconds INR APTT (25.6-37.1) Seconds pO2 35 (30-55) mm/Hg VBG pH 7.48 H (7.32-7.43) VBG pCO2 33 L (40-60) mmHg VBG HCO3 25.5 mmol/L VBG Total CO2 25.6 (22-28) mmol/L VBG O2 Sat (Calc) 77.3 H (40-65) % VBG Base Excess 1.6 (0.0-2.0) mmol/L VBG Potassium 3.7 (3.6-5.2) mmol/L Glucose 108 (75-110) mg/dL Lactate 1.2 (0.7-2.1) mmol/L FiO2 21.0 % Sodium 137.0 (132-148) mmol/l Potassium (3.6-5.0) MMOL/L Chloride 107.0 (98-107) mmol/L Carbon Dioxide (22-30) mmol/L Anion Gap (10-20) BUN (9-20) mg/dl Creatinine (0.8-1.5) mg/dl Est GFR ( Amer) Est GFR (Non-Af Amer) Random Glucose (75-110) mg/dL Calcium (8.4-10.2) mg/dL Phosphorus (2.5-4.5) mg/dl Magnesium (1.6-2.3) MG/DL Total Bilirubin (0.2-1.3) mg/dl AST (17-59) U/L ALT (21-72) U/L Alkaline Phosphatase (38-126) U/L Ammonia (16-60) umo/L Total Protein (6.3-8.2) G/DL Albumin (3.5-5.0) g/dL Globulin (2.2-3.9) gm/dL Albumin/Globulin Ratio (1.0-2.1) Lipase (23-300) U/L Venous Blood Potassium 3.7 (3.6-5.2) mmol/L Urine Color Yellow (YELLOW) Urine Clarity Slighty-cloudy (Clear) Urine pH 7.0 (5.0-8.0) Ur Specific [place] 1.016 (1.003-1.030) Urine Protein Negative (NEGATIVE) mg/dL Urine Glucose (UA) Neg (Normal) mg/dL Urine Ketones Negative (NEGATIVE) mg/dL Urine Blood Small (NEGATIVE) Urine Nitrate Negative (NEGATIVE) Urine Bilirubin Negative (NEGATIVE) Urine Urobilinogen 4.0 (0.2-1.0) mg/dL Ur Leukocyte Esterase Neg (Negative) [place]/uL Urine RBC (Auto) 3 (0-3) /hpf Urine Microscopic WBC 1 (0-5) /hpf Ur Squamous Epith Cells 1 (0-5) /hpf Urine Bacteria Rare (<OCC) Alcohol, Quantitative (0-10) mg/dl Influenza Typ A,B (EIA) Negative for flu a/b (NEGATIVE) Blood Type Antibody Screen Crossmatch BBK History Checked 05/12/18 05/12/18 05/12/18 Range/Units 21:35 21:35 21:35 WBC 4.9 D (4.8-10.8) K/uL RBC 3.23 L (4.40-5.90) Mil/uL Hgb 9.1 L (12.0-18.0) g/dL Hct 27.8 L (35.0-51.0) % MCV 86.1 (80.0-94.0) fl MCH 28.1 (27.0-31.0) pg MCHC 32.6 L (33.0-37.0) g/dL RDW 20.4 H (11.5-14.5) % Plt Count 106 L D (130-400) K/uL MPV 8.2 (7.2-11.7) fl Neut % (Auto) 82.9 H (50.0-75.0) % Lymph % (Auto) 5.9 L (20.0-40.0) % [place] % (Auto) 6.5 (0.0-10.0) % Eos % (Auto) 2.3 (0.0-4.0) % Baso % (Auto) 2.4 H (0.0-2.0) % Neut # (Auto) 4.0 (1.8-7.0) K/uL Lymph # (Auto) 0.3 L (1.0-4.3) K/uL [place] # (Auto) 0.3 (0.0-0.8) K/uL Eos # (Auto) 0.1 (0.0-0.7) K/uL Baso # (Auto) 0.1 (0.0-0.2) K/uL Total Counted Cancelled Neutrophils % (Manual) Cancelled Band Neutrophils % Cancelled Lymphocytes % (Manual) Cancelled Reactive Lymphs % Cancelled Monocytes % (Manual) Cancelled Eosinophils % (Manual) Cancelled Basophils % (Manual) Cancelled Metamyelocytes % Cancelled Myelocytes % Cancelled Promyelocytes % Cancelled Blast Cells % Cancelled Plasma Cell % (Manual) Cancelled Nucleated RBC % Cancelled Hypersegmented Polys Cancelled Smudge Cells Cancelled Toxic Granulation Cancelled Dohle Bodies Cancelled Antonio Rods Cancelled Platelet Estimate Cancelled Plt Clumps, EDTA Cancelled Large Platelets Cancelled Giant Platelets Cancelled RBC Morphology Cancelled Polychromasia Cancelled Hypochromasia (manual) Cancelled Poikilocytosis (manual Cancelled Basophilic Stippling Cancelled Anisocytosis (manual) Cancelled Microcytosis (manual) Cancelled Macrocytosis (manual) Cancelled Spherocytes Cancelled Sickle Cells Cancelled Target Cells Cancelled Tear Drop Cells Cancelled Ovalocytes Cancelled Stomatocytes Cancelled Helmet Cells Cancelled Chanel-[place] Bodies Cancelled Rayna Cells Cancelled Acanthocytes (Spur) Cancelled Rouleaux Cancelled Schistocytes Cancelled PT 16.1 H (9.8-13.1) Seconds INR 1.4 APTT 35.0 (25.6-37.1) Seconds pO2 (30-55) mm/Hg VBG pH (7.32-7.43) VBG pCO2 (40-60) mmHg VBG HCO3 mmol/L VBG Total CO2 (22-28) mmol/L VBG O2 Sat (Calc) (40-65) % VBG Base Excess (0.0-2.0) mmol/L VBG Potassium (3.6-5.2) mmol/L Glucose (75-110) mg/dL Lactate (0.7-2.1) mmol/L FiO2 % Sodium 137 (132-148) mmol/l Potassium 4.0 (3.6-5.0) MMOL/L Chloride 106 (98-107) mmol/L Carbon Dioxide 22 (22-30) mmol/L Anion Gap 13 (10-20) BUN 12 (9-20) mg/dl Creatinine 0.6 L (0.8-1.5) mg/dl Est GFR ( Amer) > 60 Est GFR (Non-Af Amer) > 60 Random Glucose 122 H (75-110) mg/dL Calcium 8.2 L (8.4-10.2) mg/dL Phosphorus 3.1 (2.5-4.5) mg/dl Magnesium 1.3 L (1.6-2.3) MG/DL Total Bilirubin 2.0 H (0.2-1.3) mg/dl AST 100 H (17-59) U/L ALT 51 (21-72) U/L Alkaline Phosphatase 192 H (38-126) U/L Ammonia (16-60) umo/L Total Protein 7.5 (6.3-8.2) G/DL Albumin 3.3 L (3.5-5.0) g/dL Globulin 4.2 H (2.2-3.9) gm/dL Albumin/Globulin Ratio 0.8 L (1.0-2.1) Lipase (23-300) U/L Venous Blood Potassium (3.6-5.2) mmol/L Urine Color (YELLOW) Urine Clarity (Clear) Urine pH (5.0-8.0) Ur Specific [place] (1.003-1.030) Urine Protein (NEGATIVE) mg/dL Urine Glucose (UA) (Normal) mg/dL Urine Ketones (NEGATIVE) mg/dL Urine Blood (NEGATIVE) Urine Nitrate (NEGATIVE) Urine Bilirubin (NEGATIVE) Urine Urobilinogen (0.2-1.0) mg/dL Ur Leukocyte Esterase (Negative) [place]/uL Urine RBC (Auto) (0-3) /hpf Urine Microscopic WBC (0-5) /hpf Ur Squamous Epith Cells (0-5) /hpf Urine Bacteria (<OCC) Alcohol, Quantitative (0-10) mg/dl Influenza Typ A,B (EIA) (NEGATIVE) Blood Type Antibody Screen Crossmatch BBK History Checked Laboratory Results - last 24 hr 05/12/18 05/12/18 05/12/18 21:35 21:35 21:35 WBC 4.9 D RBC 3.23 L Hgb 9.1 L Hct 27.8 L MCV 86.1 MCH 28.1 MCHC 32.6 L RDW 20.4 H Plt Count 106 L D MPV 8.2 Neut % (Auto) 82.9 H Lymph % (Auto) 5.9 L [place] % (Auto) 6.5 Eos % (Auto) 2.3 Baso % (Auto) 2.4 H Neut # (Auto) 4.0 Lymph # (Auto) 0.3 L [place] # (Auto) 0.3 Eos # (Auto) 0.1 Baso # (Auto) 0.1 Total Counted Cancelled Neutrophils % (Manual) Cancelled Band Neutrophils % Cancelled Lymphocytes % (Manual) Cancelled Reactive Lymphs % Cancelled Monocytes % (Manual) Cancelled Eosinophils % (Manual) Cancelled Basophils % (Manual) Cancelled Metamyelocytes % Cancelled Myelocytes % Cancelled Promyelocytes % Cancelled Blast Cells % Cancelled Plasma Cell % (Manual) Cancelled Nucleated RBC % Cancelled Hypersegmented Polys Cancelled Smudge Cells Cancelled Toxic Granulation Cancelled Dohle Bodies Cancelled Antonio Rods Cancelled Platelet Estimate Cancelled Plt Clumps, EDTA Cancelled Large Platelets Cancelled Giant Platelets Cancelled RBC Morphology Cancelled Polychromasia Cancelled Hypochromasia (manual) Cancelled Poikilocytosis (manual Cancelled Basophilic Stippling Cancelled Anisocytosis (manual) Cancelled Microcytosis (manual) Cancelled Macrocytosis (manual) Cancelled Spherocytes Cancelled Sickle Cells Cancelled Target Cells Cancelled Tear Drop Cells Cancelled Ovalocytes Cancelled Stomatocytes Cancelled Helmet Cells Cancelled Chanel-[place] Bodies Cancelled Broadbent Cells Cancelled Acanthocytes (Spur) Cancelled Rouleaux Cancelled Schistocytes Cancelled PT 16.1 H INR 1.4 APTT 35.0 pO2 VBG pH VBG pCO2 VBG HCO3 VBG Total CO2 VBG O2 Sat (Calc) VBG Base Excess VBG Potassium Glucose Lactate FiO2 Sodium 137 Potassium 4.0 Chloride 106 Carbon Dioxide 22 Anion Gap 13 BUN 12 Creatinine 0.6 L Est GFR ( Amer) > 60 Est GFR (Non-Af Amer) > 60 Random Glucose 122 H Calcium 8.2 L Phosphorus 3.1 Magnesium 1.3 L Total Bilirubin 2.0 H AST 100 H ALT 51 Alkaline Phosphatase 192 H Ammonia Total Protein 7.5 Albumin 3.3 L Globulin 4.2 H Albumin/Globulin Ratio 0.8 L Lipase Venous Blood Potassium Urine Color Urine Clarity Urine pH Ur Specific [place] Urine Protein Urine Glucose (UA) Urine Ketones Urine Blood Urine Nitrate Urine Bilirubin Urine Urobilinogen Ur Leukocyte Esterase Urine RBC (Auto) Urine Microscopic WBC Ur Squamous Epith Cells Urine Bacteria Alcohol, Quantitative Influenza Typ A,B (EIA) Blood Type Antibody Screen Crossmatch BBK History Checked 05/12/18 05/12/18 05/12/18 21:35 21:41 22:40 WBC RBC Hgb Hct MCV MCH MCHC RDW Plt Count MPV Neut % (Auto) Lymph % (Auto) [place] % (Auto) Eos % (Auto) Baso % (Auto) Neut # (Auto) Lymph # (Auto) [place] # (Auto) Eos # (Auto) Baso # (Auto) Total Counted Neutrophils % (Manual) Band Neutrophils % Lymphocytes % (Manual) Reactive Lymphs % Monocytes % (Manual) Eosinophils % (Manual) Basophils % (Manual) Metamyelocytes % Myelocytes % Promyelocytes % Blast Cells % Plasma Cell % (Manual) Nucleated RBC % Hypersegmented Polys Smudge Cells Toxic Granulation Dohle Bodies Antonio Rods Platelet Estimate Plt Clumps, EDTA Large Platelets Giant Platelets RBC Morphology Polychromasia Hypochromasia (manual) Poikilocytosis (manual Basophilic Stippling Anisocytosis (manual) Microcytosis (manual) Macrocytosis (manual) Spherocytes Sickle Cells Target Cells Tear Drop Cells Ovalocytes Stomatocytes Helmet Cells Chanel-[place] Bodies Rayna Cells Acanthocytes (Spur) Rouleaux Schistocytes PT INR APTT pO2 35 VBG pH 7.48 H VBG pCO2 33 L VBG HCO3 25.5 VBG Total CO2 25.6 VBG O2 Sat (Calc) 77.3 H VBG Base Excess 1.6 VBG Potassium 3.7 Glucose 108 Lactate 1.2 FiO2 21.0 Sodium 137.0 Potassium Chloride 107.0 Carbon Dioxide Anion Gap BUN Creatinine Est GFR ( Amer) Est GFR (Non-Af Amer) Random Glucose Calcium Phosphorus Magnesium Total Bilirubin AST ALT Alkaline Phosphatase Ammonia Total Protein Albumin Globulin Albumin/Globulin Ratio Lipase Venous Blood Potassium 3.7 Urine Color Yellow Urine Clarity Slighty-cloudy Urine pH 7.0 Ur Specific [place] 1.016 Urine Protein Negative Urine Glucose (UA) Neg Urine Ketones Negative Urine Blood Small Urine Nitrate Negative Urine Bilirubin Negative Urine Urobilinogen 4.0 Ur Leukocyte Esterase Neg Urine RBC (Auto) 3 Urine Microscopic WBC 1 Ur Squamous Epith Cells 1 Urine Bacteria Rare Alcohol, Quantitative Influenza Typ A,B (EIA) Negative for flu a/b Blood Type Antibody Screen Crossmatch BBK History Checked 05/13/18 05/13/18 05/13/18 00:27 02:26 03:45 WBC 4.7 L RBC 2.11 L Hgb 6.0 L* D Hct 18.7 L MCV 88.7 D MCH 28.4 MCHC 32.0 L RDW 20.7 H Plt Count 59 L D MPV 8.2 Neut % (Auto) 74.5 Lymph % (Auto) 14.7 L [place] % (Auto) 9.0 Eos % (Auto) 1.1 Baso % (Auto) 0.7 Neut # (Auto) 3.5 Lymph # (Auto) 0.7 L [place] # (Auto) 0.4 Eos # (Auto) 0.1 Baso # (Auto) 0.0 Total Counted Neutrophils % (Manual) Band Neutrophils % Lymphocytes % (Manual) Reactive Lymphs % Monocytes % (Manual) Eosinophils % (Manual) Basophils % (Manual) Metamyelocytes % Myelocytes % Promyelocytes % Blast Cells % Plasma Cell % (Manual) Nucleated RBC % Hypersegmented Polys Smudge Cells Toxic Granulation Dohle Bodies Antonio Rods Platelet Estimate Plt Clumps, EDTA Large Platelets Giant Platelets RBC Morphology Polychromasia Hypochromasia (manual) Poikilocytosis (manual Basophilic Stippling Anisocytosis (manual) Microcytosis (manual) Macrocytosis (manual) Spherocytes Sickle Cells Target Cells Tear Drop Cells Ovalocytes Stomatocytes Helmet Cells [place] Bodies Broadbent Cells Acanthocytes (Spur) Rouleaux Schistocytes PT INR APTT pO2 58 H VBG pH 7.49 H VBG pCO2 30 L VBG HCO3 25.1 VBG Total CO2 23.8 VBG O2 Sat (Calc) 100.4 H VBG Base Excess 0.4 VBG Potassium 3.6 Glucose 117 H Lactate 0.9 FiO2 21.0 Sodium 137.0 Potassium Chloride 109.0 H Carbon Dioxide Anion Gap BUN Creatinine Est GFR ( Amer) Est GFR (Non-Af Amer) Random Glucose Calcium Phosphorus Magnesium Total Bilirubin AST ALT Alkaline Phosphatase Ammonia Total Protein Albumin Globulin Albumin/Globulin Ratio Lipase Venous Blood Potassium 3.6 Urine Color Urine Clarity Urine pH Ur Specific [place] Urine Protein Urine Glucose (UA) Urine Ketones Urine Blood Urine Nitrate Urine Bilirubin Urine Urobilinogen Ur Leukocyte Esterase Urine RBC (Auto) Urine Microscopic WBC Ur Squamous Epith Cells Urine Bacteria Alcohol, Quantitative Influenza Typ A,B (EIA) Blood Type O POSITIVE Antibody Screen Negative Crossmatch See Detail BBK History Checked Patient has bt 05/13/18 05/13/18 05/13/18 03:45 03:45 03:45 WBC RBC Hgb Hct MCV MCH MCHC RDW Plt Count MPV Neut % (Auto) Lymph % (Auto) [place] % (Auto) Eos % (Auto) Baso % (Auto) Neut # (Auto) Lymph # (Auto) [place] # (Auto) Eos # (Auto) Baso # (Auto) Total Counted Neutrophils % (Manual) Band Neutrophils % Lymphocytes % (Manual) Reactive Lymphs % Monocytes % (Manual) Eosinophils % (Manual) Basophils % (Manual) Metamyelocytes % Myelocytes % Promyelocytes % Blast Cells % Plasma Cell % (Manual) Nucleated RBC % Hypersegmented Polys Smudge Cells Toxic Granulation Dohle Bodies Antonio Rods Platelet Estimate Plt Clumps, EDTA Large Platelets Giant Platelets RBC Morphology Polychromasia Hypochromasia (manual) Poikilocytosis (manual Basophilic Stippling Anisocytosis (manual) Microcytosis (manual) Macrocytosis (manual) Spherocytes Sickle Cells Target Cells Tear Drop Cells Ovalocytes Stomatocytes Helmet Cells [place] Bodies Broadbent Cells Acanthocytes (Spur) Rouleaux Schistocytes PT INR APTT pO2 VBG pH VBG pCO2 VBG HCO3 VBG Total CO2 VBG O2 Sat (Calc) VBG Base Excess VBG Potassium Glucose Lactate FiO2 Sodium Potassium Chloride Carbon Dioxide Anion Gap BUN Creatinine Est GFR ( Amer) Est GFR (Non-Af Amer) Random Glucose Calcium Phosphorus Magnesium Total Bilirubin AST ALT Alkaline Phosphatase Ammonia 186 H* D Total Protein Albumin Globulin Albumin/Globulin Ratio Lipase 154 Venous Blood Potassium Urine Color Urine Clarity Urine pH Ur Specific [place] Urine Protein Urine Glucose (UA) Urine Ketones Urine Blood Urine Nitrate Urine Bilirubin Urine Urobilinogen Ur Leukocyte Esterase Urine RBC (Auto) Urine Microscopic WBC Ur Squamous Epith Cells Urine Bacteria Alcohol, Quantitative < 10 Influenza Typ A,B (EIA) Blood Type Antibody Screen Crossmatch BBK History Checked EKG/Cardiology Studies: Cardiology / EKG Studies 05/12/18 21:20 ELECTROCARDIOGRAM Stat Comment: Mode Of Transportation: Reason For Exam: Sepsis Patient Fingerstick Blood Sugar Results: 134 Critical Care Progress Note - Nutrition Nutrition: Nutrition Category Date Time Status NPO Diet [DIET] Diets 05/13/18 Breakfast Active Assessment/Plan - Assessment and Plan (Free Text) Assessment: 53 y/o M with a PMHx of multiple GI bleeding, alcohol abuse, alcoholic cirrhosis (s/P Tips) and esophageal varices was admitted to ICU due to acute GI bleeding, hypotension, sepsis with pneumonia as source of infection, and acute anemia. PLAN: 1. Sepsis --Criteria met by tachycardia, fever and pneumonia as source of infection. --CT lung last night (preliminary) showed signs of Bilateral basal multifocal Bronchopneumonia --On IV Vancomycin, Zosyn and Ceftriaxone. --F/u Ct Chest final report, Blood Cx and Urine Cx --IV fluids --Monitor vital signs. 2. Acute GI bleeding --Hematemesis and Hematochezia at ED --Hgb dropped from 9.1 to 6.0 in 5 hours. --Endoscopy on 05/10 showed multiple dispersed non-bleeding erosions in the entire examined stomach. --NPO --Pantoprazole drip. --GI on board, Dr Swartz. No procedure for now. --Monitor Hgb levels 3. Pneumonia, Aspiration vs HCAP --CT lung showed signs of Bilateral basal multifocal Bronchopneumonia --On IV Vancomycin, Zosyn and Ceftriaxone. --Aspiration precautions and elevated head of bed. --F/u Chest CT aand CXR --F/U Vanco through 4. Normocytic anemia due to acute blood loss --S/P 1 unit PRBC, receiving 1. 2 units PRBC's on hold. 5. Altered mental status --Possibly due to hyperammonemia --Lactulose VA Q4H --Psychiatry on board, Dr Damon --Follow-up ammonia levels. 6. Alcohol dependency --[facility] protocol --Ativan PRN 7. Pancytopienia --Due to alcoholism-induced --F/U CBC. 8. Prophylaxis --No anticoagulation --SCD's --Continue management as ordered by primary team. Case discussed with Dr Masood Tran PGY-2 - Date & Time Date: 05/13/18 Time: 11:35 <Anders Correia - Last Filed: 05/13/18 17:17> CCU Subjective - Physician Review Subjective (Free Text): Attestation: Patient seen and examined at the bedside with Resident Dr. Kennedy Stacy; and I agree with his outline of plans and management documented above and below, reflecting my review of all applicable clinical data, and participation in the care of the patient throughout the day in ICU; today, May 13, 2018. Time spent with this patient did not overlap with any other provider's medical or critical care time. Additionally the code selected for the services rendered in this note includes the time spent: talking to the patients family, associated physicians and reviewing hospital data/results not listed here which extended to a total of 30 minutes of critical care.
--- NOTE | 2018-05-13 11:36 | CP.PCM.CON ---
History of Present Illness - History of Present Illness History of Present Illness: 53 yo male with recent endoscopy for hematemesis being readmitted for anemia, bleeding, and weakness. Upper endoscopy last admission showed gastritis. No varices seen. Review of Systems - Review of Systems Systems not reviewed;Unavailable: Altered Mental Status - Constitutional Constitutional: absent: Chills Past Patient History - Infectious Disease Hx of Infectious Diseases: None - Tetanus Immunizations Tetanus Immunization: Unknown - Past Medical History & Family History Past Medical History?: Yes - Past Social History Smoking Status: Former Smoker Alcohol: Occasional Home Situation {Lives}: Homeless - CARDIAC Hx Cardiac Disorders: Yes - PULMONARY Hx Respiratory Disorders: Yes - NEUROLOGICAL Hx Neurological Disorder: Yes - HEENT Hx HEENT Problems: No - RENAL Hx Chronic Kidney Disease: No - ENDOCRINE/METABOLIC Hx Endocrine Disorders: No - HEMATOLOGICAL/ONCOLOGICAL Hx Blood Disorders: Yes - INTEGUMENTARY Hx Dermatological Problems: Yes - MUSCULOSKELETAL/RHEUMATOLOGICAL Hx Fractures: Yes - GASTROINTESTINAL Hx Gall Bladder Disease: Yes (Cholelithiasis) Hx Gastritis: Yes Hx Pancreatitis: Yes - GENITOURINARY/GYNECOLOGICAL Hx Sexually Transmitted Disorders: No - PSYCHIATRIC Hx Psychophysiologic Disorder: Yes - SURGICAL HISTORY Hx Surgeries: Yes - ANESTHESIA Hx Anesthesia: Yes Hx Anesthesia Reactions: No Hx Malignant Hyperthermia: No Meds Allergies/Adverse Reactions: Allergies Allergy/AdvReac Type Severity Reaction Status Date / Time aspirin AdvReac GI Bleed Verified 05/12/18 21:04 ibuprofen [From Motrin] AdvReac GI Bleed Verified 05/12/18 21:04 naproxen AdvReac GI bleed Verified 05/12/18 21:04 NSAIDS (Non-Steroidal AdvReac GI bleed Verified 05/12/18 21:04 Anti-Inflamma - Medications Medications: Current Medications Acetaminophen (Tylenol 650 Mg Supp) 650 mg ME Q6 PRN PRN Reason: Fever >100.4 F Vancomycin HCl 1 gm/ Sodium (Chloride) 250 mls @ 166.667 mls/hr IVPB Q12H JANNIE; Protocol Piperacillin Sod/Tazobactam (Sod 3.375 gm/ Sodium Chloride) 100 mls @ 100 mls/hr IVPB Q6 JANNIE; Protocol Multivitamins/Vitamin C 10 ml/Thiamine HCl 100 mg/ Folic Acid 1 mg/ Dextrose/Sodium Chloride 1,011.2 mls @ 100 mls/hr IV .Q10H7M ONE Stop: 05/13/18 15:47 Last Admin: 05/13/18 07:27 Dose: 100 mls/hr Pantoprazole Sodium 40 mg/ (Sodium Chloride) 100 mls @ 20 mls/hr IVPB Q5H JANNIE Ceftriaxone Sodium 1 gm/ (Sodium Chloride) 100 mls @ 100 mls/hr IVPB DAILY JANNIE; Protocol Lactulose (Generlac) 200 gm ME Q4H JANNIE Lorazepam (Ativan) 2 mg IVP Q6 PRN PRN Reason: Symptoms of alcohol withdrawl Ondansetron HCl (Zofran Inj) 4 mg IVP Q6 PRN PRN Reason: Nausea/Vomiting Thiamine HCl (Vitamin B1 Inj) 100 mg IM DAILY JANNIE Stop: 05/16/18 09:01 Physical Exam - Constitutional Appears: Older Than Stated Age - Head Exam Head Exam: ATRAUMATIC - Eye Exam Eye Exam: Normal appearance - ENT Exam ENT Exam: Mucous Membranes Moist - Respiratory Exam Respiratory Exam: NORMAL BREATHING PATTERN - Cardiovascular Exam Cardiovascular Exam: REGULAR RHYTHM, +S1, +S2 - GI/Abdominal Exam GI & Abdominal Exam: Firm, Normal Bowel Sounds, Soft Results - Vital Signs Recent Vital Signs: Last Vital Signs Temp 98.6 F 05/13/18 11:18 Pulse 77 05/13/18 11:18 Resp 11 L 05/13/18 11:18 BP 115/59 L 05/13/18 11:18 Pulse Ox 100 05/13/18 09:02 - Labs Result Diagrams: 05/13/18 02:26 05/12/18 21:35 Labs: Laboratory Results - last 24 hr 05/12/18 05/12/18 05/12/18 21:35 21:35 21:35 WBC 4.9 D RBC 3.23 L Hgb 9.1 L Hct 27.8 L MCV 86.1 MCH 28.1 MCHC 32.6 L RDW 20.4 H Plt Count 106 L D MPV 8.2 Neut % (Auto) 82.9 H Lymph % (Auto) 5.9 L [place] % (Auto) 6.5 Eos % (Auto) 2.3 Baso % (Auto) 2.4 H Neut # (Auto) 4.0 Lymph # (Auto) 0.3 L [place] # (Auto) 0.3 Eos # (Auto) 0.1 Baso # (Auto) 0.1 Total Counted Cancelled Neutrophils % (Manual) Cancelled Band Neutrophils % Cancelled Lymphocytes % (Manual) Cancelled Reactive Lymphs % Cancelled Monocytes % (Manual) Cancelled Eosinophils % (Manual) Cancelled Basophils % (Manual) Cancelled Metamyelocytes % Cancelled Myelocytes % Cancelled Promyelocytes % Cancelled Blast Cells % Cancelled Plasma Cell % (Manual) Cancelled Nucleated RBC % Cancelled Hypersegmented Polys Cancelled Smudge Cells Cancelled Toxic Granulation Cancelled Dohle Bodies Cancelled Antonio Rods Cancelled Platelet Estimate Cancelled Plt Clumps, EDTA Cancelled Large Platelets Cancelled Giant Platelets Cancelled RBC Morphology Cancelled Polychromasia Cancelled Hypochromasia (manual) Cancelled Poikilocytosis (manual Cancelled Basophilic Stippling Cancelled Anisocytosis (manual) Cancelled Microcytosis (manual) Cancelled Macrocytosis (manual) Cancelled Spherocytes Cancelled Sickle Cells Cancelled Target Cells Cancelled Tear Drop Cells Cancelled Ovalocytes Cancelled Stomatocytes Cancelled Helmet Cells Cancelled [place] Bodies Cancelled Rayna Cells Cancelled Acanthocytes (Spur) Cancelled Rouleaux Cancelled Schistocytes Cancelled PT 16.1 H INR 1.4 APTT 35.0 pO2 VBG pH VBG pCO2 VBG HCO3 VBG Total CO2 VBG O2 Sat (Calc) VBG Base Excess VBG Potassium Glucose Lactate FiO2 Sodium 137 Potassium 4.0 Chloride 106 Carbon Dioxide 22 Anion Gap 13 BUN 12 Creatinine 0.6 L Est GFR ( Amer) > 60 Est GFR (Non-Af Amer) > 60 Random Glucose 122 H Calcium 8.2 L Phosphorus 3.1 Magnesium 1.3 L Total Bilirubin 2.0 H AST 100 H ALT 51 Alkaline Phosphatase 192 H Ammonia Total Protein 7.5 Albumin 3.3 L Globulin 4.2 H Albumin/Globulin Ratio 0.8 L Lipase Venous Blood Potassium Urine Color Urine Clarity Urine pH Ur Specific [place] Urine Protein Urine Glucose (UA) Urine Ketones Urine Blood Urine Nitrate Urine Bilirubin Urine Urobilinogen Ur Leukocyte Esterase Urine RBC (Auto) Urine Microscopic WBC Ur Squamous Epith Cells Urine Bacteria Alcohol, Quantitative Influenza Typ A,B (EIA) Blood Type Antibody Screen Crossmatch BBK History Checked 05/12/18 05/12/18 05/12/18 21:35 21:41 22:40 WBC RBC Hgb Hct MCV MCH MCHC RDW Plt Count MPV Neut % (Auto) Lymph % (Auto) [place] % (Auto) Eos % (Auto) Baso % (Auto) Neut # (Auto) Lymph # (Auto) [place] # (Auto) Eos # (Auto) Baso # (Auto) Total Counted Neutrophils % (Manual) Band Neutrophils % Lymphocytes % (Manual) Reactive Lymphs % Monocytes % (Manual) Eosinophils % (Manual) Basophils % (Manual) Metamyelocytes % Myelocytes % Promyelocytes % Blast Cells % Plasma Cell % (Manual) Nucleated RBC % Hypersegmented Polys Smudge Cells Toxic Granulation Dohle Bodies Antonio Rods Platelet Estimate Plt Clumps, EDTA Large Platelets Giant Platelets RBC Morphology Polychromasia Hypochromasia (manual) Poikilocytosis (manual Basophilic Stippling Anisocytosis (manual) Microcytosis (manual) Macrocytosis (manual) Spherocytes Sickle Cells Target Cells Tear Drop Cells Ovalocytes Stomatocytes Helmet Cells [place] Bodies Rayna Cells Acanthocytes (Spur) Rouleaux Schistocytes PT INR APTT pO2 35 VBG pH 7.48 H VBG pCO2 33 L VBG HCO3 25.5 VBG Total CO2 25.6 VBG O2 Sat (Calc) 77.3 H VBG Base Excess 1.6 VBG Potassium 3.7 Glucose 108 Lactate 1.2 FiO2 21.0 Sodium 137.0 Potassium Chloride 107.0 Carbon Dioxide Anion Gap BUN Creatinine Est GFR ( Amer) Est GFR (Non-Af Amer) Random Glucose Calcium Phosphorus Magnesium Total Bilirubin AST ALT Alkaline Phosphatase Ammonia Total Protein Albumin Globulin Albumin/Globulin Ratio Lipase Venous Blood Potassium 3.7 Urine Color Yellow Urine Clarity Slighty-cloudy Urine pH 7.0 Ur Specific [place] 1.016 Urine Protein Negative Urine Glucose (UA) Neg Urine Ketones Negative Urine Blood Small Urine Nitrate Negative Urine Bilirubin Negative Urine Urobilinogen 4.0 Ur Leukocyte Esterase Neg Urine RBC (Auto) 3 Urine Microscopic WBC 1 Ur Squamous Epith Cells 1 Urine Bacteria Rare Alcohol, Quantitative Influenza Typ A,B (EIA) Negative for flu a/b Blood Type Antibody Screen Crossmatch BBK History Checked 05/13/18 05/13/18 05/13/18 00:27 02:26 03:45 WBC 4.7 L RBC 2.11 L Hgb 6.0 L* D Hct 18.7 L MCV 88.7 D MCH 28.4 MCHC 32.0 L RDW 20.7 H Plt Count 59 L D MPV 8.2 Neut % (Auto) 74.5 Lymph % (Auto) 14.7 L [place] % (Auto) 9.0 Eos % (Auto) 1.1 Baso % (Auto) 0.7 Neut # (Auto) 3.5 Lymph # (Auto) 0.7 L [place] # (Auto) 0.4 Eos # (Auto) 0.1 Baso # (Auto) 0.0 Total Counted Neutrophils % (Manual) Band Neutrophils % Lymphocytes % (Manual) Reactive Lymphs % Monocytes % (Manual) Eosinophils % (Manual) Basophils % (Manual) Metamyelocytes % Myelocytes % Promyelocytes % Blast Cells % Plasma Cell % (Manual) Nucleated RBC % Hypersegmented Polys Smudge Cells Toxic Granulation Dohle Bodies Antonio Rods Platelet Estimate Plt Clumps, EDTA Large Platelets Giant Platelets RBC Morphology Polychromasia Hypochromasia (manual) Poikilocytosis (manual Basophilic Stippling Anisocytosis (manual) Microcytosis (manual) Macrocytosis (manual) Spherocytes Sickle Cells Target Cells Tear Drop Cells Ovalocytes Stomatocytes Helmet Cells [place] Bodies Rayna Cells Acanthocytes (Spur) Rouleaux Schistocytes PT INR APTT pO2 58 H VBG pH 7.49 H VBG pCO2 30 L VBG HCO3 25.1 VBG Total CO2 23.8 VBG O2 Sat (Calc) 100.4 H VBG Base Excess 0.4 VBG Potassium 3.6 Glucose 117 H Lactate 0.9 FiO2 21.0 Sodium 137.0 Potassium Chloride 109.0 H Carbon Dioxide Anion Gap BUN Creatinine Est GFR ( Amer) Est GFR (Non-Af Amer) Random Glucose Calcium Phosphorus Magnesium Total Bilirubin AST ALT Alkaline Phosphatase Ammonia Total Protein Albumin Globulin Albumin/Globulin Ratio Lipase Venous Blood Potassium 3.6 Urine Color Urine Clarity Urine pH Ur Specific [place] Urine Protein Urine Glucose (UA) Urine Ketones Urine Blood Urine Nitrate Urine Bilirubin Urine Urobilinogen Ur Leukocyte Esterase Urine RBC (Auto) Urine Microscopic WBC Ur Squamous Epith Cells Urine Bacteria Alcohol, Quantitative Influenza Typ A,B (EIA) Blood Type O POSITIVE Antibody Screen Negative Crossmatch See Detail BBK History Checked Patient has bt 05/13/18 05/13/18 05/13/18 03:45 03:45 03:45 WBC RBC Hgb Hct MCV MCH MCHC RDW Plt Count MPV Neut % (Auto) Lymph % (Auto) [place] % (Auto) Eos % (Auto) Baso % (Auto) Neut # (Auto) Lymph # (Auto) [place] # (Auto) Eos # (Auto) Baso # (Auto) Total Counted Neutrophils % (Manual) Band Neutrophils % Lymphocytes % (Manual) Reactive Lymphs % Monocytes % (Manual) Eosinophils % (Manual) Basophils % (Manual) Metamyelocytes % Myelocytes % Promyelocytes % Blast Cells % Plasma Cell % (Manual) Nucleated RBC % Hypersegmented Polys Smudge Cells Toxic Granulation Dohle Bodies Antonio Rods Platelet Estimate Plt Clumps, EDTA Large Platelets Giant Platelets RBC Morphology Polychromasia Hypochromasia (manual) Poikilocytosis (manual Basophilic Stippling Anisocytosis (manual) Microcytosis (manual) Macrocytosis (manual) Spherocytes Sickle Cells Target Cells Tear Drop Cells Ovalocytes Stomatocytes Helmet Cells [place] Bodies Rayna Cells Acanthocytes (Spur) Rouleaux Schistocytes PT INR APTT pO2 VBG pH VBG pCO2 VBG HCO3 VBG Total CO2 VBG O2 Sat (Calc) VBG Base Excess VBG Potassium Glucose Lactate FiO2 Sodium Potassium Chloride Carbon Dioxide Anion Gap BUN Creatinine Est GFR ( Amer) Est GFR (Non-Af Amer) Random Glucose Calcium Phosphorus Magnesium Total Bilirubin AST ALT Alkaline Phosphatase Ammonia 186 H* D Total Protein Albumin Globulin Albumin/Globulin Ratio Lipase 154 Venous Blood Potassium Urine Color Urine Clarity Urine pH Ur Specific [place] Urine Protein Urine Glucose (UA) Urine Ketones Urine Blood Urine Nitrate Urine Bilirubin Urine Urobilinogen Ur Leukocyte Esterase Urine RBC (Auto) Urine Microscopic WBC Ur Squamous Epith Cells Urine Bacteria Alcohol, Quantitative < 10 Influenza Typ A,B (EIA) Blood Type Antibody Screen Crossmatch BBK History Checked - Imaging and Cardiology CT scan - chest Status: Report reviewed by me Assessment & Plan - Assessment and Plan (Free Text) Assessment: Hematemesis and weakness and has elevated ammonia level. Transfuse HGB to over 8. Lactulose enemas for hepatic encephelopathy. Protonix drip. IV abx.
--- NOTE | 2018-05-13 11:39 | RAD ---
Date of service: 05/12/2018 HISTORY: Sepsis Patient COMPARISON: Portable chest 04/24/2018. FINDINGS: LUNGS: No active pulmonary disease. PLEURA: No significant pleural effusion identified, no pneumothorax apparent. CARDIOVASCULAR: No aortic atherosclerotic calcification present. Normal cardiac size. No pulmonary vascular congestion. OSSEOUS STRUCTURES: No significant abnormalities. VISUALIZED UPPER ABDOMEN: Normal. OTHER FINDINGS: None. IMPRESSION: No interval acute cardiopulmonary disease appreciated.
[2018-05-13] MEDS: Lactulose 10 gm/15 ml (Rectal Use) PR SCH ×2 (13:02→17:00)
[2018-05-13] MEDS: Pantoprazole 40 MG in Sodium Chloride 0.9% 100 ML IVPB SCH ×3 (13:05→21:18)
--- NOTE | 2018-05-13 13:35 | CT ---
Date of service: 05/13/2018 PROCEDURE: CT Chest without contrast HISTORY: fever, cough, poss pna on CXR COMPARISON: CT chest 03/20/2018 TECHNIQUE: Contiguous axial images were obtained through the chest without intravenous contrast enhancement. Sagittal and coronal reconstructions were performed. Radiation dose (DLP): 298.93 mGy-cm. This CT exam was performed using one or more of the following dose reduction techniques: Automated exposure control, adjustment of the mA and/or kV according to patient size, and/or use of iterative reconstruction technique. FINDINGS: LUNGS: There is infiltrate in the posterior basal right lower lobe. There is probable linear subsegmental atelectasis in the posterior left lower lobe. There is multifocal ground-glass opacity seen in the right middle lobe and anterior basal right lower lobe. Possible infectious etiology. There is ney pleural-based nodular soft tissue density in the far lateral right middle lobe, possibly atelectasis. Follow-up to clearing to exclude underlying neoplasm. This measures approximately 17 mm in diameter. MEDIASTINUM: Unremarkable thoracic aorta. No aneurysm. Normal sized heart. Main pulmonary artery unremarkable. No vascular congestion. Shotty subcentimeter mediastinal nodes are evident. No significantly enlarged lymph nodes are identified. There is atherosclerotic calcification of the aortic arch. PLEURA: No pleural fluid. No pneumothorax. BONES: Multiple healing rib fractures bilaterally. There is a fracture of the left 6th rib anteriorly without evidence of callus which may represent an acute fracture. It is nondisplaced. There are ill-defined sclerotic foci in multiple ribs bilaterally concerning for sclerotic metastasis. Recommend correlation with radionuclide bone scan. UPPER ABDOMEN: Nodular hepatic contour consistent with cirrhosis. TIPS stent noted. Splenomegaly. Retroperitoneal varices. OTHER FINDINGS: None. IMPRESSION: Focal consolidation right lower lobe. Multifocal ground-glass opacities in right middle lobe and right lower lobe concerning for an infectious or inflammatory process. Nodular pleural-based opacity in the lateral segment right middle lobe, possibly atelectasis. However, recommend follow-up to exclude underlying neoplasm. Multiple sclerotic foci seen in ribs bilaterally concerning for metastasis. Recommend correlation with radionuclide bone scan. Multiple healing bilateral rib fractures with possible acute fracture left 6th rib anteriorly. Hepatic cirrhosis. TIPS stent. Splenomegaly. Retroperitoneal varices. The preliminary findings for this examination were reported by [facility] at 2:20 a.m. on 05/13/2018. There is discordance of this report with the preliminary findings. Sclerotic osseous foci concerning for metastasis and multiple bilateral healing rib fractures were not described in the preliminary report of this examination.
[2018-05-13] MEDS ORDERED: Chlorhexidine Gluconate 1 APPL/PKT TP ONE (14:50)
[2018-05-13] MEDS: Piperacillin/Tazobact 3.375 GM in Sodium Chloride 0.9% 100 ML IVPB SCH ×2 (14:52→21:17)
[2018-05-13] MEDS ORDERED: Propofol 10 mg/ml 1,000 MG/100 ML VIAL ONE (15:12)
[2018-05-13] MEDS ORDERED: Propofol 10 mg/ml Inj (20 ML) IV ONE (15:24)
--- NOTE | 2018-05-13 15:32 | PCM.PROC ---
<Vik Stacy - Last Filed: 05/13/18 15:30> Procedures Attestation:: I certify that I have explained the specified Operation(s) or Procedure(s), risks, benefits and reasonable alternatives to the Patient and/or other person responsible. The opportunity was given to ask questions and all questions answered - Central Line Placement Right Femoral Triple Lumen Catheter Aseptic technique was employed throughout the procedure: Hand Hygiene done prior to procedure, Full sterile barriers (mask, hair cover, sterile gown, sterile gloves), Full body sterile drape, Chloraprep Antiseptic: 2 minute prep for Femoral Pt. Placed on Pulse Ox Monitor: Yes Central Line Prep: Povidone-Iodine 1% Local Anesthesia Used: Lidocaine 1% Amount of Anesthesia Used (mls): 4 (mL) Ultrasound Used for Placement: No Central Line Lumen Inserted: triple Central Line Length: 20 cm Secured by: Suture Post Procedure X-Ray: No Patient Tolerated Procedure: Well Immediate Complications: None <Anders Correia - Last Filed: 05/13/18 16:09> Procedures Attestation:: I certify that I have explained the specified Operation(s) or Procedure(s), risks, benefits and reasonable alternatives to the Patient and/or other person responsible. The opportunity was given to ask questions and all questions answered - Central Line Placement Right Femoral Triple Lumen Catheter Additional Comments: Procedure performed under emergent conditions in ICU by Dr. Kennedy Stacy. Procedure supervised in its entirety by myself with direct guidance during the entire time. Patient tolerated procedure well.
--- NOTE | 2018-05-13 16:09 | RAD ---
Date of service: 05/13/2018 HISTORY: s/p intubation COMPARISON: 05/12/2018 FINDINGS: LUNGS: No active pulmonary disease. PLEURA: No significant pleural effusion identified, no pneumothorax apparent. CARDIOVASCULAR: No aortic atherosclerotic calcification present. Normal cardiac size. No congestive change. The ET tube positioned with its tip approximately 4.3 cm above the tracheal maranda. Nasogastric tube extends to the left upper abdomen. OSSEOUS STRUCTURES: Healing fracture of the are noted in the right 7th through 9th ribs. VISUALIZED UPPER ABDOMEN: Normal. OTHER FINDINGS: None. IMPRESSION: No acute infiltrate. Healing fractures of right 7th through 9th ribs. ET tube and NG tube are grossly appropriate in position.
--- NOTE | 2018-05-13 16:13 | PCM.PROC ---
Procedures Attestation:: I certify that I have explained the specified Operation(s) or Procedure(s), risks, benefits and reasonable alternatives to the Patient and/or other person responsible. The opportunity was given to ask questions and all questions answered - Intubation Time Out Performed: Yes Sedative: Other (Propofol) Mg Given: 70 Laryngoscope: Kalpana ET Tube Size: 8.0 ET Tube Secured at Depth: 22 ET Tube Secured Locarion: Lips ET Tube Placement Confirmation: Visualized Passing Through Cords, Breath Sounds Equal Bilaterally, No Breath Sounds Over Epigastrum, Confirmation w/Capnometry Patient Tolerated Procedure: Well Procedure Immediate Complications: None Additional comments: Procedure performed under emergent conditions in ICU for airway protection and maintenance given comatose / encephalopathic state and risjk of recurrent hematemesis. Psot Intubation CXR shows satisfactory placement of distal ETT tip above maranda. OGT passed as well and confirmed to be in the stomach as visualized on CXR.
[2018-05-13 18:14] LABS: BLOOD UREA NITROGEN 15 mg/dl (9-20); GFR NON-AFRICAN AMERICAN > 60
[2018-05-13 18:15] LABS: ALB/GLOB RATIO 0.6 (1.0-2.1); ALBUMIN 2.2 g/dL (3.5-5.0); ALT/SGPT 45 U/L (21-72); AST/SGOT 65 U/L (17-59); CALCIUM 7.1 mg/dL (8.4-10.2)
[2018-05-13 19:32] LABS: MEAN CELL VOLUME 87.4 fl (80.0-94.0); MEAN CORPUSCULAR HEMOGLOBIN 28.9 pg (27.0-31.0); RBC 2.78 Mil/uL (4.40-5.90); RED CELL DISTRIBUTION WIDTH 18.5 % (11.5-14.5); WHITE BLOOD COUNT 4.5 K/uL (4.8-10.8)
[2018-05-13 19:35] LABS: ABG ALLEN TEST YES; ARTERIAL BLOOD GAS HCO3 23.3 mmol/L (21-28); ARTERIAL BLOOD GAS HEMOGLOBIN 8.4 g/dL (11.7-17.4); ARTERIAL BLOOD GAS O2 CAPACITY 12.1 mL/dL (16-24); ARTERIAL BLOOD GAS O2 CONTENT 12.2 ML/dL (15-23); ARTERIAL BLOOD GAS O2 SAT 100.9 % (95-98); ARTERIAL BLOOD GAS PCO2 20 mm/Hg (35-45); ARTERIAL BLOOD GAS PH 7.58 (7.35-7.45); ARTERIAL BLOOD GAS PO2 244 mm/Hg (80-100); ARTERIAL BLOOD GAS TCO2 19.4 mmol/L (22-28)
[2018-05-14] MEDS: Potassium Ch 20mEq in D5-1/2NS 1,000 ML IV SCH ×2 (02:55→21:05)
[2018-05-14] MEDS: Pantoprazole 40 MG in Sodium Chloride 0.9% 100 ML IVPB SCH ×4 (02:55→20:19)
[2018-05-14] MEDS: Piperacillin/Tazobact 3.375 GM in Sodium Chloride 0.9% 100 ML IVPB SCH ×4 (03:07→21:04)
[2018-05-14 04:34] LABS: ABG ALLEN TEST YES; ARTERIAL BLOOD GAS HCO3 21.5 mmol/L (21-28); ARTERIAL BLOOD GAS HEMOGLOBIN 8.9 g/dL (11.7-17.4); ARTERIAL BLOOD GAS O2 CAPACITY 12.8 mL/dL (16-24); ARTERIAL BLOOD GAS O2 CONTENT 12.9 ML/dL (15-23); ARTERIAL BLOOD GAS O2 SAT 100.6 % (95-98); ARTERIAL BLOOD GAS PCO2 19 mm/Hg (35-45); ARTERIAL BLOOD GAS PH 7.55 (7.35-7.45); ARTERIAL BLOOD GAS PO2 229 mm/Hg (80-100); ARTERIAL BLOOD GAS TCO2 17.2 mmol/L (22-28)
[2018-05-14 05:32] LABS: HEMOGLOBIN 8.6 g/dL (12.0-18.0); MEAN CELL VOLUME 86.8 fl (80.0-94.0); MEAN CORPUSCULAR HEMOGLOBIN 28.8 pg (27.0-31.0); MEAN CORPUSCULAR HGB CONC 33.1 g/dL (33.0-37.0); RBC 2.99 Mil/uL (4.40-5.90); RED CELL DISTRIBUTION WIDTH 17.7 % (11.5-14.5); WHITE BLOOD COUNT 4.6 K/uL (4.8-10.8)
[2018-05-14 06:00] LABS: ALB/GLOB RATIO 0.6 (1.0-2.1); ALBUMIN 2.1 g/dL (3.5-5.0); ALT/SGPT 40 U/L (21-72); AST/SGOT 61 U/L (17-59); BLOOD UREA NITROGEN 14 mg/dl (9-20); CALCIUM 7.2 mg/dL (8.4-10.2); GFR NON-AFRICAN AMERICAN > 60
[2018-05-14] MEDS: Potassium CL 10 MEQ/50 ML 50 ML IVPB SCH ×3 (06:30→09:25)
--- NOTE | 2018-05-14 07:30 | CP.CCUPN ---
CCU Subjective - Physician Review Events Since Last Encounter (Free Text): Patient on ventilator on PRVC TV 450, RR 12, FIO2 40%, no pressors, no fever, no response to verbal stimuli, events reviewed CCU Objective - Vital Signs / Intake & Output Vital Signs (Last 4 hours): Vital Signs Temp Pulse Resp BP Pulse Ox 05/14/18 06:00 76 17 120/60 99 05/14/18 05:48 97 05/14/18 04:00 98.7 F 82 18 122/60 99 Intake and Output (Last 8hrs): Intake & Output 05/13/18 05/14/18 05/14/18 22:59 06:59 14:59 Intake Total 1625 1765 Output Total 2200 1400 Balance -575 365 Weight 171 lb Intake: IV 750 600 Intake, Piggyback 450 450 Oral 100 Tube Feeding 120 Blood Product 325 325 Red Blood Cells Cpd As1 0 325 Lr Unit [id number] Red Blood Cells Cpd As1 325 Lr Unit [id number] Free Water Flush 220 Other 50 Red Blood Cells Cpd As1 50 Lr Unit [id number] Output: Urine 2200 1400 Urethral (Ty) 2200 1400 Other: # Bowel Movements 2 1 - Physical Exam Head: Positive for: Atraumatic, Normocephalic Pupils: Positive for: PERRL Mouth: Positive for: Dry Nose (External): Positive for: Atraumatic Neck: Positive for: Normal Range of Motion. Negative for: Meningeal Signs, Lymphadenopathy Respiratory/Chest: Positive for: Rhonchi (bilateral lower lobes) Cardiovascular: Positive for: Normal S1, S2. Negative for: Tachycardic Abdomen: Positive for: Normal Bowel Sounds. Negative for: Tenderness, Guarding Upper Extremity: Positive for: Normal Inspection Lower Extremity: Positive for: Normal Inspection Neurological: Positive for: Other (on ventilator) - Medications Active Medications: Active Medications Generic Name Dose Route Start Last Admin Trade Name Freq PRN Reason Stop Dose Admin Acetaminophen 650 mg 05/13/18 03:32 Tylenol 650 Mg Supp MT Q6 PRN Fever >100.4 F Vancomycin HCl 1 gm/ Sodium 250 mls @ 166.667 mls/hr 05/13/18 13:00 05/14/18 02:57 Chloride IVPB 166.667 mls/hr Q12H JANNIE Administration Protocol Piperacillin Sod/Tazobactam 100 mls @ 100 mls/hr 05/13/18 09:30 05/14/18 03:07 Sod 3.375 gm/ Sodium Chloride IVPB 100 mls/hr Q6 JANNIE Administration Protocol Pantoprazole Sodium 40 mg/ 100 mls @ 20 mls/hr 05/13/18 11:00 05/14/18 02:55 Sodium Chloride IVPB 20 mls/hr Q5H JANNIE Administration 8 MG/HR Ceftriaxone Sodium 1 gm/ 100 mls @ 100 mls/hr 05/13/18 11:00 05/13/18 13:16 Sodium Chloride IVPB 100 mls/hr DAILY JANNIE Administration Protocol Potassium Chloride/Dextrose/Sod Cl 1,000 mls @ 80 mls/hr 05/14/18 02:15 05/14/18 02:55 Potassium Chl 20 Meq In D5-1/2ns IV 05/15/18 02:08 80 mls/hr .[id number] JANNIE Administration Potassium Chloride 50 mls @ 50 mls/hr 05/14/18 07:00 05/14/18 06:30 Potassium Cl 10meq/50ml Sterile Water IVPB 05/14/18 10:59 50 mls/hr Q1 JANNIE Administration Lactulose 20 gm 05/13/18 20:00 05/14/18 03:06 Enulose NG 20 gm Q4H JANNIE Administration Lorazepam 2 mg 05/13/18 04:21 05/14/18 03:06 Ativan IVP 2 mg Q6 PRN Administration Symptoms of alcohol withdrawl Ondansetron HCl 4 mg 05/13/18 03:35 Zofran Inj IVP Q6 PRN Nausea/Vomiting Thiamine HCl 100 mg 05/14/18 09:00 Vitamin B1 Inj IM 05/16/18 09:01 DAILY JANNIE - Patient Studies Lab Studies: Microbiology Studies 05/12/18 21:25 Blood Culture - Preliminary Blood NO GROWTH AFTER 24 HOURS 05/12/18 21:15 Blood Culture - Preliminary Blood NO GROWTH AFTER 24 HOURS Lab Studies 05/14/18 05/14/18 05/14/18 Range/Units 04:23 04:23 04:18 WBC 4.6 L (4.8-10.8) K/uL RBC 2.99 L (4.40-5.90) Mil/uL Hgb 8.6 L (12.0-18.0) g/dL Hct 26.0 L (35.0-51.0) % MCV 86.8 (80.0-94.0) fl MCH 28.8 (27.0-31.0) pg MCHC 33.1 (33.0-37.0) g/dL RDW 17.7 H (11.5-14.5) % Plt Count 62 L (130-400) K/uL pCO2 (35-45) mm/Hg pO2 (80-100) mm/Hg HCO3 (21-28) mmol/L ABG pH (7.35-7.45) ABG Total CO2 (22-28) mmol/L ABG O2 Saturation (95-98) % ABG O2 Content (15-23) ML/dL ABG Base Excess (-2.0-3.0) mmol/L ABG Hemoglobin (11.7-17.4) g/dL ABG Carboxyhemoglobin (0.5-1.5) % POC ABG HHb (Measured) (0.0-5.0) % ABG Methemoglobin (0.0-3.0) % ABG O2 Capacity (16-24) mL/dL Jose Test A-a O2 Difference mm/Hg Hgb O2 Saturation (95.0-98.0) % Vent Mode Mechanical Rate FiO2 % Tidal Volume PEEP Crit Value Called To Crit Value Called By Crit Value Read Back Blood Gas Notified Time Sodium 145 (132-148) mmol/l Potassium 3.1 L (3.6-5.0) MMOL/L Chloride 121 H (98-107) mmol/L Carbon Dioxide 17 L (22-30) mmol/L Anion Gap 10 (10-20) BUN 14 (9-20) mg/dl Creatinine 0.6 L (0.8-1.5) mg/dl Est GFR ( Amer) > 60 Est GFR (Non-Af Amer) > 60 Random Glucose 121 H (75-110) mg/dL Calcium 7.2 L (8.4-10.2) mg/dL Phosphorus 3.2 (2.5-4.5) mg/dl Magnesium 1.7 (1.6-2.3) MG/DL Total Bilirubin 3.0 H (0.2-1.3) mg/dl AST 61 H (17-59) U/L ALT 40 (21-72) U/L Alkaline Phosphatase 124 (38-126) U/L Ammonia 123 H* D (16-60) umo/L Total Protein 5.7 L (6.3-8.2) G/DL Albumin 2.1 L (3.5-5.0) g/dL Globulin 3.5 (2.2-3.9) gm/dL Albumin/Globulin Ratio 0.6 L (1.0-2.1) Lipase (23-300) U/L Vancomycin Trough (5.0-10.0) ug/mL Blood Type Antibody Screen Crossmatch BBK History Checked 05/14/18 05/13/18 05/13/18 Range/Units 04:00 19:26 17:50 WBC 4.5 L (4.8-10.8) K/uL RBC 2.78 L (4.40-5.90) Mil/uL Hgb 8.0 L D (12.0-18.0) g/dL Hct 24.3 L (35.0-51.0) % MCV 87.4 (80.0-94.0) fl MCH 28.9 (27.0-31.0) pg MCHC 33.0 (33.0-37.0) g/dL RDW 18.5 H (11.5-14.5) % Plt Count 63 L (130-400) K/uL pCO2 19 L* 20 L (35-45) mm/Hg pO2 229 H 244 H (80-100) mm/Hg HCO3 21.5 23.3 (21-28) mmol/L ABG pH 7.55 H 7.58 H (7.35-7.45) ABG Total CO2 17.2 L 19.4 L (22-28) mmol/L ABG O2 Saturation 100.6 H 100.9 H (95-98) % ABG O2 Content 12.9 L 12.2 L (15-23) ML/dL ABG Base Excess -4.5 L -2.2 L (-2.0-3.0) mmol/L ABG Hemoglobin 8.9 L 8.4 L (11.7-17.4) g/dL ABG Carboxyhemoglobin 1.4 1.5 (0.5-1.5) % POC ABG HHb (Measured) -0.6 L -0.9 L (0.0-5.0) % ABG Methemoglobin 1.0 1.3 (0.0-3.0) % ABG O2 Capacity 12.8 L 12.1 L (16-24) mL/dL Jose Test Yes Yes A-a O2 Difference 32.0 88.0 mm/Hg Hgb O2 Saturation 98.2 H 98.2 H (95.0-98.0) % Vent Mode A/c A/c pc Mechanical Rate 12 12 FiO2 40.0 50.0 % Tidal Volume 450 500 PEEP 5 5 Crit Value Called To Luke heaton Crit Value Called By Darvin Crit Value Read Back Y Blood Gas Notified Time 434 Sodium (132-148) mmol/l Potassium (3.6-5.0) MMOL/L Chloride (98-107) mmol/L Carbon Dioxide (22-30) mmol/L Anion Gap (10-20) BUN (9-20) mg/dl Creatinine (0.8-1.5) mg/dl Est GFR ( Amer) Est GFR (Non-Af Amer) Random Glucose (75-110) mg/dL Calcium (8.4-10.2) mg/dL Phosphorus (2.5-4.5) mg/dl Magnesium (1.6-2.3) MG/DL Total Bilirubin (0.2-1.3) mg/dl AST (17-59) U/L ALT (21-72) U/L Alkaline Phosphatase (38-126) U/L Ammonia (16-60) umo/L Total Protein (6.3-8.2) G/DL Albumin (3.5-5.0) g/dL Globulin (2.2-3.9) gm/dL Albumin/Globulin Ratio (1.0-2.1) Lipase (23-300) U/L Vancomycin Trough (5.0-10.0) ug/mL Blood Type Antibody Screen Crossmatch BBK History Checked 05/13/18 05/13/18 05/13/18 Range/Units 17:47 13:59 03:45 WBC (4.8-10.8) K/uL RBC (4.40-5.90) Mil/uL Hgb (12.0-18.0) g/dL Hct (35.0-51.0) % MCV (80.0-94.0) fl MCH (27.0-31.0) pg MCHC (33.0-37.0) g/dL RDW (11.5-14.5) % Plt Count (130-400) K/uL pCO2 (35-45) mm/Hg pO2 (80-100) mm/Hg HCO3 (21-28) mmol/L ABG pH (7.35-7.45) ABG Total CO2 (22-28) mmol/L ABG O2 Saturation (95-98) % ABG O2 Content (15-23) ML/dL ABG Base Excess (-2.0-3.0) mmol/L ABG Hemoglobin (11.7-17.4) g/dL ABG Carboxyhemoglobin (0.5-1.5) % POC ABG HHb (Measured) (0.0-5.0) % ABG Methemoglobin (0.0-3.0) % ABG O2 Capacity (16-24) mL/dL Jose Test A-a O2 Difference mm/Hg Hgb O2 Saturation (95.0-98.0) % Vent Mode Mechanical Rate FiO2 % Tidal Volume PEEP Crit Value Called To Crit Value Called By Crit Value Read Back Blood Gas Notified Time Sodium 143 (132-148) mmol/l Potassium 3.8 (3.6-5.0) MMOL/L Chloride 118 H (98-107) mmol/L Carbon Dioxide 20 L (22-30) mmol/L Anion Gap 9 L (10-20) BUN 15 (9-20) mg/dl Creatinine 0.6 L (0.8-1.5) mg/dl Est GFR ( Amer) > 60 Est GFR (Non-Af Amer) > 60 Random Glucose 105 (75-110) mg/dL Calcium 7.1 L (8.4-10.2) mg/dL Phosphorus 2.6 (2.5-4.5) mg/dl Magnesium 1.7 (1.6-2.3) MG/DL Total Bilirubin 2.5 H (0.2-1.3) mg/dl AST 65 H D (17-59) U/L ALT 45 (21-72) U/L Alkaline Phosphatase 126 D (38-126) U/L Ammonia (16-60) umo/L Total Protein 5.7 L (6.3-8.2) G/DL Albumin 2.2 L D (3.5-5.0) g/dL Globulin 3.5 (2.2-3.9) gm/dL Albumin/Globulin Ratio 0.6 L (1.0-2.1) Lipase 154 (23-300) U/L Vancomycin Trough 6.0 (5.0-10.0) ug/mL Blood Type Antibody Screen Crossmatch BBK History Checked 05/13/18 Range/Units 03:45 WBC (4.8-10.8) K/uL RBC (4.40-5.90) Mil/uL Hgb (12.0-18.0) g/dL Hct (35.0-51.0) % MCV (80.0-94.0) fl MCH (27.0-31.0) pg MCHC (33.0-37.0) g/dL RDW (11.5-14.5) % Plt Count (130-400) K/uL pCO2 (35-45) mm/Hg pO2 (80-100) mm/Hg HCO3 (21-28) mmol/L ABG pH (7.35-7.45) ABG Total CO2 (22-28) mmol/L ABG O2 Saturation (95-98) % ABG O2 Content (15-23) ML/dL ABG Base Excess (-2.0-3.0) mmol/L ABG Hemoglobin (11.7-17.4) g/dL ABG Carboxyhemoglobin (0.5-1.5) % POC ABG HHb (Measured) (0.0-5.0) % ABG Methemoglobin (0.0-3.0) % ABG O2 Capacity (16-24) mL/dL Jose Test A-a O2 Difference mm/Hg Hgb O2 Saturation (95.0-98.0) % Vent Mode Mechanical Rate FiO2 % Tidal Volume PEEP Crit Value Called To Crit Value Called By Crit Value Read Back Blood Gas Notified Time Sodium (132-148) mmol/l Potassium (3.6-5.0) MMOL/L Chloride (98-107) mmol/L Carbon Dioxide (22-30) mmol/L Anion Gap (10-20) BUN (9-20) mg/dl Creatinine (0.8-1.5) mg/dl Est GFR ( Amer) Est GFR (Non-Af Amer) Random Glucose (75-110) mg/dL Calcium (8.4-10.2) mg/dL Phosphorus (2.5-4.5) mg/dl Magnesium (1.6-2.3) MG/DL Total Bilirubin (0.2-1.3) mg/dl AST (17-59) U/L ALT (21-72) U/L Alkaline Phosphatase (38-126) U/L Ammonia (16-60) umo/L Total Protein (6.3-8.2) G/DL Albumin (3.5-5.0) g/dL Globulin (2.2-3.9) gm/dL Albumin/Globulin Ratio (1.0-2.1) Lipase (23-300) U/L Vancomycin Trough (5.0-10.0) ug/mL Blood Type O POSITIVE Antibody Screen Negative Crossmatch See Detail BBK History Checked Patient has bt Laboratory Results - last 24 hr 05/13/18 05/13/18 05/13/18 03:45 03:45 13:59 WBC RBC Hgb Hct MCV MCH MCHC RDW Plt Count pCO2 pO2 HCO3 ABG pH ABG Total CO2 ABG O2 Saturation ABG O2 Content ABG Base Excess ABG Hemoglobin ABG Carboxyhemoglobin POC ABG HHb (Measured) ABG Methemoglobin ABG O2 Capacity Jose Test A-a O2 Difference Hgb O2 Saturation Vent Mode Mechanical Rate FiO2 Tidal Volume PEEP Crit Value Called To Crit Value Called By Crit Value Read Back Blood Gas Notified Time Sodium Potassium Chloride Carbon Dioxide Anion Gap BUN Creatinine Est GFR ( Amer) Est GFR (Non-Af Amer) Random Glucose Calcium Phosphorus Magnesium Total Bilirubin AST ALT Alkaline Phosphatase Ammonia Total Protein Albumin Globulin Albumin/Globulin Ratio Lipase 154 Vancomycin Trough 6.0 Blood Type O POSITIVE Antibody Screen Negative Crossmatch See Detail BBK History Checked Patient has bt 05/13/18 05/13/18 05/13/18 17:47 17:50 19:26 WBC 4.5 L RBC 2.78 L Hgb 8.0 L D Hct 24.3 L MCV 87.4 MCH 28.9 MCHC 33.0 RDW 18.5 H Plt Count 63 L pCO2 20 L pO2 244 H HCO3 23.3 ABG pH 7.58 H ABG Total CO2 19.4 L ABG O2 Saturation 100.9 H ABG O2 Content 12.2 L ABG Base Excess -2.2 L ABG Hemoglobin 8.4 L ABG Carboxyhemoglobin 1.5 POC ABG HHb (Measured) -0.9 L ABG Methemoglobin 1.3 ABG O2 Capacity 12.1 L Jose Test Yes A-a O2 Difference 88.0 Hgb O2 Saturation 98.2 H Vent Mode A/c pc Mechanical Rate 12 FiO2 50.0 Tidal Volume 500 PEEP 5 Crit Value Called To Crit Value Called By Crit Value Read Back Blood Gas Notified Time Sodium 143 Potassium 3.8 Chloride 118 H Carbon Dioxide 20 L Anion Gap 9 L BUN 15 Creatinine 0.6 L Est GFR ( Amer) > 60 Est GFR (Non-Af Amer) > 60 Random Glucose 105 Calcium 7.1 L Phosphorus 2.6 Magnesium 1.7 Total Bilirubin 2.5 H AST 65 H D ALT 45 Alkaline Phosphatase 126 D Ammonia Total Protein 5.7 L Albumin 2.2 L D Globulin 3.5 Albumin/Globulin Ratio 0.6 L Lipase Vancomycin Trough Blood Type Antibody Screen Crossmatch BBK History Checked 05/14/18 05/14/18 05/14/18 04:00 04:18 04:23 WBC 4.6 L RBC 2.99 L Hgb 8.6 L Hct 26.0 L MCV 86.8 MCH 28.8 MCHC 33.1 RDW 17.7 H Plt Count 62 L pCO2 19 L* pO2 229 H HCO3 21.5 ABG pH 7.55 H ABG Total CO2 17.2 L ABG O2 Saturation 100.6 H ABG O2 Content 12.9 L ABG Base Excess -4.5 L ABG Hemoglobin 8.9 L ABG Carboxyhemoglobin 1.4 POC ABG HHb (Measured) -0.6 L ABG Methemoglobin 1.0 ABG O2 Capacity 12.8 L Jose Test Yes A-a O2 Difference 32.0 Hgb O2 Saturation 98.2 H Vent Mode A/c Mechanical Rate 12 FiO2 40.0 Tidal Volume 450 PEEP 5 Crit Value Called To Luke heaton Crit Value Called By Darvin Crit Value Read Back Y Blood Gas Notified Time 434 Sodium Potassium Chloride Carbon Dioxide Anion Gap BUN Creatinine Est GFR ( Amer) Est GFR (Non-Af Amer) Random Glucose Calcium Phosphorus Magnesium Total Bilirubin AST ALT Alkaline Phosphatase Ammonia 123 H* D Total Protein Albumin Globulin Albumin/Globulin Ratio Lipase Vancomycin Trough Blood Type Antibody Screen Crossmatch BBK History Checked 05/14/18 04:23 WBC RBC Hgb Hct MCV MCH MCHC RDW Plt Count pCO2 pO2 HCO3 ABG pH ABG Total CO2 ABG O2 Saturation ABG O2 Content ABG Base Excess ABG Hemoglobin ABG Carboxyhemoglobin POC ABG HHb (Measured) ABG Methemoglobin ABG O2 Capacity Jose Test A-a O2 Difference Hgb O2 Saturation Vent Mode Mechanical Rate FiO2 Tidal Volume PEEP Crit Value Called To Crit Value Called By Crit Value Read Back Blood Gas Notified Time Sodium 145 Potassium 3.1 L Chloride 121 H Carbon Dioxide 17 L Anion Gap 10 BUN 14 Creatinine 0.6 L Est GFR ( Amer) > 60 Est GFR (Non-Af Amer) > 60 Random Glucose 121 H Calcium 7.2 L Phosphorus 3.2 Magnesium 1.7 Total Bilirubin 3.0 H AST 61 H ALT 40 Alkaline Phosphatase 124 Ammonia Total Protein 5.7 L Albumin 2.1 L Globulin 3.5 Albumin/Globulin Ratio 0.6 L Lipase Vancomycin Trough Blood Type Antibody Screen Crossmatch BBK History Checked Fingerstick Blood Sugar Results: 134 Critical Care Progress Note - Nutrition Nutrition: Nutrition Category Date Time Status NPO Diet [DIET] Diets 05/13/18 Breakfast Active Assessment/Plan - Assessment and Plan (Free Text) Assessment: A/P Respiratory failure, sepsis, GI bleeding, pneumonia, anemia, altered mental status, ETOH abuse, hepatic encephalopathy - Ventilatory support - Pulmonary toilets - GI follow up - Continue meds - Follow up labs Critical care 40 min
--- NOTE | 2018-05-14 08:17 | CP.PCM.PN ---
Subjective - Date & Time of Evaluation Date of Evaluation: 05/14/18 Time of Evaluation: 11:21 - Subjective Subjective: Patient seen and examined at bedside this morning. There are no acute events overnight, NAD. Patient remains intubated. Patient continues to have bloody bowel movements. Objective - Vital Signs/Intake and Output Vital Signs (last 24 hours): Temp Pulse Resp BP Pulse Ox 98.7 F 76 17 120/60 99 05/14/18 04:00 05/14/18 06:00 05/14/18 06:00 05/14/18 06:00 05/14/18 06:00 Intake and Output: 05/14/18 05/14/18 06:59 18:59 Intake Total 1865 Output Total 1600 Balance 265 - Medications Medications: Current Medications Acetaminophen (Tylenol 650 Mg Supp) 650 mg WA Q6 PRN PRN Reason: Fever >100.4 F Vancomycin HCl 1 gm/ Sodium (Chloride) 250 mls @ 166.667 mls/hr IVPB Q12H JANNIE; Protocol Last Admin: 05/14/18 02:57 Dose: 166.667 mls/hr Piperacillin Sod/Tazobactam (Sod 3.375 gm/ Sodium Chloride) 100 mls @ 100 mls/hr IVPB Q6 JANNIE; Protocol Last Admin: 05/14/18 03:07 Dose: 100 mls/hr Pantoprazole Sodium 40 mg/ (Sodium Chloride) 100 mls @ 20 mls/hr IVPB Q5H JANNIE Last Admin: 05/14/18 02:55 Dose: 20 mls/hr Ceftriaxone Sodium 1 gm/ (Sodium Chloride) 100 mls @ 100 mls/hr IVPB DAILY JANNIE; Protocol Last Admin: 05/13/18 13:16 Dose: 100 mls/hr Potassium Chloride/Dextrose/Sod Cl (Potassium Chl 20 Meq In D5-1/2ns) 1,000 mls @ 80 mls/hr IV .[id number] JANNIE Stop: 05/15/18 02:08 Last Admin: 05/14/18 02:55 Dose: 80 mls/hr Potassium Chloride (Potassium Cl 10meq/50ml Sterile Water) 50 mls @ 50 mls/hr IVPB Q1 JANNIE Stop: 05/14/18 10:59 Last Admin: 05/14/18 06:30 Dose: 50 mls/hr Lactulose (Enulose) 20 gm NG Q4H JANNIE Last Admin: 05/14/18 03:06 Dose: 20 gm Lorazepam (Ativan) 2 mg IVP Q6 PRN PRN Reason: Symptoms of alcohol withdrawl Last Admin: 05/14/18 03:06 Dose: 2 mg Ondansetron HCl (Zofran Inj) 4 mg IVP Q6 PRN PRN Reason: Nausea/Vomiting Thiamine HCl (Vitamin B1 Inj) 100 mg IM DAILY JANNIE Stop: 05/16/18 09:01 - Labs Labs: 05/14/18 04:23 05/14/18 04:23 PT 16.1 Seconds (9.8-13.1) H 05/12/18 21:35 INR 1.4 05/12/18 21:35 APTT 35.0 Seconds (25.6-37.1) 05/12/18 21:35 - Constitutional Appears: Unkempt - Head Exam Head Exam: ATRAUMATIC, NORMOCEPHALIC - Eye Exam Eye Exam: PERRL - ENT Exam ENT Exam: Mucous Membranes Dry - Respiratory Exam Respiratory Exam: Decreased Breath Sounds, Rhonchi (bibasilar rhonchi). absent: Wheezes, Respiratory Distress - Cardiovascular Exam Cardiovascular Exam: RRR. absent: Tachycardia - GI/Abdominal Exam GI & Abdominal Exam: Soft, Normal Bowel Sounds. absent: Distended, Guarding, Tenderness - Neurological Exam Neurological Exam: absent: Alert, Awake Additional comments: intubated on ventilator - Skin Skin Exam: Dry, Normal Color Assessment and Plan - Assessment and Plan (Free Text) Assessment: 54 y/o man w/ pmh of ETOH abuse, unwitnessed seizures, cirrhosis (s/p TIPS), hepatic encephalopathy admitted for GI bleed, anemia, sepsis and pneumonia. Plan: Sepsis - resolving -no tachycardia and afebrile -lactate 0.9 -Bcx and Ucx pending -c/w IV fluids -monitor vitals -Tylenol PRN fever -Cont IV ABx Acute GI bleed -Hematemesis and hematochezia, lower VS upper GI bleed -Hb 8.6 -s/p 4 units of PRBC order given acute bleeding -Last Endoscopy 04/2018: normal esophagus, multiple non-bleeding erosions found in the stomach, normal duodenum (Dr. Swartz) -c/w IV protonix -NPO -c/w IVF D% 1/2 NS w/ 20 meq K+ @ 80 mL/hr -Zofran PRN -GI consulted, follow up recs -Aspiration precautions B/L Pneumonia -CT chest sig for Bilateral basilar multi-focal bronchopneumonia -HCAP vs aspiration pneumonia given ETOH abuse -Follow up official CT and CXR readings -c/w Vanc 1 gm IV Q12h day 2 -c/w Zosyn 3.375 gm IV Q6h day 2 -f/u vanc trough Normocytic Anemia -acute on chronic -Acute GI bleed -s/p transfuse 4 units of PRBC -follow up CBC -anticipate additional PRBC units Hyperammonemia -Ammonia level 123 -Patient reponsive to painful stimuli -NPO -Lactulose 20 gm via NG Q4h -consider rifaximin and PO lactulose once GI bleeding stops Hypomagnesemia -Mg 1.3 -IV 1g of Mg sulfate ordered -follow up Mg level Liver Cirrhosis -chronic, 2/2 to ETOH abuse -MELD's Score 13 Pancytopenia -chronic -likely 2/2 to ETOH abuse and cirrhosis Alcohol Abuse -chronic -ETOH <10 -CIWA 7 on admission -c/w CIWA protocol -Ativan 2mg IVP PRN ETOH withdrawal -Monitor for signs of DT Seizure Disorder -chronic, unwitnessed -hold Keppra now, NPO -Seizure precautions DVT prophylaxis -No Lovenox at this time given acute GI bleeding -c/w SCD for now
[2018-05-14] MEDS: Thiamine 100 mg/ml Inj IM SCH (08:37)
--- NOTE | 2018-05-14 10:39 | RAD ---
Date of service: 05/14/2018 HISTORY: Intubated COMPARISON: Comparison chest 05/13/2018 FINDINGS: In situ ETT, tip of which lies approximately 4.3 cm the above maranda. NGT is present, the tip of which has not been included on this film though distal aspect does lie below EG junction. LUNGS: Patchy infiltrate again noted in the right mid to lower lung field with suspect left basilar atelectasis PLEURA: No significant effusion or apparent. Pneumothorax apparent. CARDIOVASCULAR: . Aortic atherosclerotic calcification present. Heart appears mildly enlarged. No pulmonary vascular congestion. OSSEOUS STRUCTURES: No significant abnormalities. VISUALIZED UPPER ABDOMEN: Normal. OTHER FINDINGS: None. IMPRESSION: ETT and NGT as above. Patchy infiltrate again noted in the right mid to lower lung field with suspect left basilar atelectasis
[2018-05-14] MEDS ORDERED: Magnesium Sulfate 1 gm in D5W 1 GM/100 ML BAG IVPB ONE (11:41)
[2018-05-14 12:31] LABS: HEMOGLOBIN 8.7 g/dL (12.0-18.0); MEAN CELL VOLUME 86.4 fl (80.0-94.0); MEAN CORPUSCULAR HEMOGLOBIN 28.1 pg (27.0-31.0); MEAN CORPUSCULAR HGB CONC 32.5 g/dL (33.0-37.0); RBC 3.08 Mil/uL (4.40-5.90); RED CELL DISTRIBUTION WIDTH 18.4 % (11.5-14.5); WHITE BLOOD COUNT 5.3 K/uL (4.8-10.8)
[2018-05-14] MEDS ORDERED: Propofol 10 mg/ml 1,000 MG/100 ML VIAL ONE (23:35)
[2018-05-14] MEDS ORDERED: Acetaminophen 650mg/20.3ml solution UD PO PRN (23:41)
[2018-05-15 00:08] LABS: HEMOGLOBIN 8.4 g/dL (12.0-18.0); MEAN CELL VOLUME 87.2 fl (80.0-94.0); MEAN CORPUSCULAR HEMOGLOBIN 28.1 pg (27.0-31.0); MEAN CORPUSCULAR HGB CONC 32.2 g/dL (33.0-37.0); RBC 2.98 Mil/uL (4.40-5.90); RED CELL DISTRIBUTION WIDTH 18.6 % (11.5-14.5); WHITE BLOOD COUNT 4.9 K/uL (4.8-10.8)
[2018-05-15 00:27] LABS: BLOOD UREA NITROGEN 15 mg/dl (9-20); CALCIUM 7.2 mg/dL (8.4-10.2); GFR NON-AFRICAN AMERICAN > 60
[2018-05-15] MEDS ORDERED: Potassium Chloride 20 mEq/15 ml LIQ UD PO ONE (00:34)
[2018-05-15 01:22] LABS: URINE BACTERIA RARE (<OCC); URINE BILIRUBIN NEGATIVE (NEGATIVE); URINE BLOOD MODERATE (NEGATIVE); URINE CLARITY CLEAR (Clear); URINE COLOR AMBER (YELLOW); URINE GLUCOSE (UA) NEG (Normal); URINE LEUKOCYTE ESTERASE NEG Leu/uL (Negative); URINE PROTEIN NEGATIVE (NEGATIVE)
[2018-05-15] MEDS: Pantoprazole 40 MG in Sodium Chloride 0.9% 100 ML IVPB SCH ×3 (03:50→14:30)
[2018-05-15] MEDS: Piperacillin/Tazobact 3.375 GM in Sodium Chloride 0.9% 100 ML IVPB SCH ×4 (03:51→21:00)
[2018-05-15 05:12] LABS: HEMOGLOBIN 8.2 g/dL (12.0-18.0); MEAN CELL VOLUME 88.2 fl (80.0-94.0); MEAN CORPUSCULAR HEMOGLOBIN 28.5 pg (27.0-31.0); MEAN CORPUSCULAR HGB CONC 32.3 g/dL (33.0-37.0); RBC 2.89 Mil/uL (4.40-5.90); RED CELL DISTRIBUTION WIDTH 18.4 % (11.5-14.5); WHITE BLOOD COUNT 4.7 K/uL (4.8-10.8)
[2018-05-15 05:53] LABS: ALB/GLOB RATIO 0.6 (1.0-2.1); ALT/SGPT 34 U/L (21-72); AST/SGOT 61 U/L (17-59); BLOOD UREA NITROGEN 16 mg/dl (9-20); CALCIUM 7.2 mg/dL (8.4-10.2); GFR NON-AFRICAN AMERICAN > 60
--- NOTE | 2018-05-15 07:19 | CP.CCUPN ---
CCU Subjective - Physician Review Events Since Last Encounter (Free Text): Patient on ventilator on PRVC TV 450, RR 12, FIO2 40%, no pressors, no fever, no response to verbal stimuli, events reviewed CCU Objective - Vital Signs / Intake & Output Vital Signs (Last 4 hours): Vital Signs Temp Pulse Resp BP Pulse Ox 05/15/18 06:00 86 22 115/77 98 05/15/18 04:00 99.9 F H 86 18 141/80 97 Intake and Output (Last 8hrs): Intake & Output 05/14/18 05/15/18 05/15/18 22:59 06:59 14:59 Intake Total 490 992 Output Total 750 1000 Balance -260 -8 Weight 175 lb Intake: IV 240 480 Intake, Piggyback 100 350 Tube Feeding 50 50 Lipid 12 Free Water Flush 100 100 Output: Urine 750 350 Urethral (Ty) 750 350 Stool 650 Other: # Bowel Movements 1 1 - Physical Exam Head: Positive for: Atraumatic, Normocephalic Pupils: Positive for: PERRL Mouth: Positive for: Dry Nose (External): Positive for: Atraumatic Neck: Positive for: Normal Range of Motion. Negative for: Meningeal Signs, Lymphadenopathy Respiratory/Chest: Positive for: Rhonchi (bilateral lower lobes) Cardiovascular: Positive for: Normal S1, S2. Negative for: Tachycardic Abdomen: Positive for: Normal Bowel Sounds. Negative for: Tenderness, Guarding Upper Extremity: Positive for: Normal Inspection Lower Extremity: Positive for: Normal Inspection Neurological: Positive for: Other (on ventilator) - Medications Active Medications: Active Medications Generic Name Dose Route Start Last Admin Trade Name Freq PRN Reason Stop Dose Admin Acetaminophen 650 mg 05/13/18 03:32 Tylenol 650 Mg Supp IN Q6 PRN Fever >100.4 F Acetaminophen 650 mg 05/14/18 23:41 05/15/18 00:18 Tylenol 650mg/20.3ml Solution Ud PO 650 mg Q6 PRN Administration Fever Vancomycin HCl 1 gm/ Sodium 250 mls @ 166.667 mls/hr 05/13/18 13:00 05/15/18 00:20 Chloride IVPB 166.667 mls/hr Q12H JANNIE Administration Protocol Piperacillin Sod/Tazobactam 100 mls @ 100 mls/hr 05/13/18 09:30 05/15/18 03:51 Sod 3.375 gm/ Sodium Chloride IVPB 100 mls/hr Q6 JANNIE Administration Protocol Pantoprazole Sodium 40 mg/ 100 mls @ 20 mls/hr 05/13/18 11:00 05/15/18 03:50 Sodium Chloride IVPB 20 mls/hr Q5H JANNIE Administration 8 MG/HR Ceftriaxone Sodium 1 gm/ 100 mls @ 100 mls/hr 05/13/18 11:00 05/14/18 08:36 Sodium Chloride IVPB 100 mls/hr DAILY JANNIE Administration Protocol Lactulose 20 gm 05/13/18 20:00 05/15/18 03:57 Enulose NG 20 gm Q4H JANNIE Administration Lorazepam 2 mg 05/13/18 04:21 05/15/18 03:56 Ativan IVP 2 mg Q6 PRN Administration Symptoms of alcohol withdrawl Ondansetron HCl 4 mg 05/13/18 03:35 Zofran Inj IVP Q6 PRN Nausea/Vomiting Thiamine HCl 100 mg 05/14/18 09:00 05/14/18 08:37 Vitamin B1 Inj IM 05/16/18 09:01 100 mg DAILY JANNIE Administration - Patient Studies Lab Studies: Microbiology Studies 05/12/18 21:15 Blood Culture - Preliminary Blood NO GROWTH AFTER 48 HOURS 05/12/18 21:25 Blood Culture - Preliminary Blood NO GROWTH AFTER 48 HOURS 05/13/18 11:11 MRSA Culture (Admit) - Final Axilla MRSA NOT DETECTED Lab Studies 05/15/18 05/15/18 05/15/18 Range/Units 04:42 04:42 04:42 WBC 4.7 L (4.8-10.8) K/uL RBC 2.89 L (4.40-5.90) Mil/uL Hgb 8.2 L (12.0-18.0) g/dL Hct 25.5 L (35.0-51.0) % MCV 88.2 (80.0-94.0) fl MCH 28.5 (27.0-31.0) pg MCHC 32.3 L (33.0-37.0) g/dL RDW 18.4 H (11.5-14.5) % Plt Count 89 L (130-400) K/uL APTT 34.6 (25.6-37.1) Seconds Sodium 146 (132-148) mmol/l Potassium 3.5 L (3.6-5.0) MMOL/L Chloride 124 H (98-107) mmol/L Carbon Dioxide 15 L (22-30) mmol/L Anion Gap 11 (10-20) BUN 16 (9-20) mg/dl Creatinine 0.7 L (0.8-1.5) mg/dl Est GFR ( Amer) > 60 Est GFR (Non-Af Amer) > 60 Random Glucose 103 (75-110) mg/dL Calcium 7.2 L (8.4-10.2) mg/dL Phosphorus 3.2 (2.5-4.5) mg/dl Magnesium 1.8 (1.6-2.3) MG/DL Total Bilirubin 2.7 H (0.2-1.3) mg/dl AST 61 H (17-59) U/L ALT 34 (21-72) U/L Alkaline Phosphatase 114 (38-126) U/L Ammonia (16-60) umo/L Total Protein 5.5 L (6.3-8.2) G/DL Albumin 2.0 L (3.5-5.0) g/dL Globulin 3.5 (2.2-3.9) gm/dL Albumin/Globulin Ratio 0.6 L (1.0-2.1) Urine Color (YELLOW) Urine Clarity (Clear) Urine pH (5.0-8.0) Ur Specific [place] (1.003-1.030) Urine Protein (NEGATIVE) mg/dL Urine Glucose (UA) (Normal) mg/dL Urine Ketones (NEGATIVE) mg/dL Urine Blood (NEGATIVE) Urine Nitrate (NEGATIVE) Urine Bilirubin (NEGATIVE) Urine Urobilinogen (0.2-1.0) mg/dL Ur Leukocyte Esterase (Negative) [place]/uL Urine RBC (Auto) (0-3) /hpf Urine Microscopic WBC (0-5) /hpf Urine Bacteria (<OCC) Vancomycin Trough (5.0-10.0) ug/mL 05/15/18 05/14/18 05/14/18 Range/Units 04:40 23:59 23:50 WBC (4.8-10.8) K/uL RBC (4.40-5.90) Mil/uL Hgb (12.0-18.0) g/dL Hct (35.0-51.0) % MCV (80.0-94.0) fl MCH (27.0-31.0) pg MCHC (33.0-37.0) g/dL RDW (11.5-14.5) % Plt Count (130-400) K/uL APTT (25.6-37.1) Seconds Sodium 144 (132-148) mmol/l Potassium 3.1 L (3.6-5.0) MMOL/L Chloride 121 H (98-107) mmol/L Carbon Dioxide 14 L (22-30) mmol/L Anion Gap 12 (10-20) BUN 15 (9-20) mg/dl Creatinine 0.7 L (0.8-1.5) mg/dl Est GFR ( Amer) > 60 Est GFR (Non-Af Amer) > 60 Random Glucose 112 H (75-110) mg/dL Calcium 7.2 L (8.4-10.2) mg/dL Phosphorus (2.5-4.5) mg/dl Magnesium (1.6-2.3) MG/DL Total Bilirubin (0.2-1.3) mg/dl AST (17-59) U/L ALT (21-72) U/L Alkaline Phosphatase (38-126) U/L Ammonia 27 D (16-60) umo/L Total Protein (6.3-8.2) G/DL Albumin (3.5-5.0) g/dL Globulin (2.2-3.9) gm/dL Albumin/Globulin Ratio (1.0-2.1) Urine Color [place] (YELLOW) Urine Clarity Clear (Clear) Urine pH 5.0 (5.0-8.0) Ur Specific [place] 1.039 H (1.003-1.030) Urine Protein Negative (NEGATIVE) mg/dL Urine Glucose (UA) Neg (Normal) mg/dL Urine Ketones Negative (NEGATIVE) mg/dL Urine Blood Moderate (NEGATIVE) Urine Nitrate Negative (NEGATIVE) Urine Bilirubin Negative (NEGATIVE) Urine Urobilinogen 2.0 (0.2-1.0) mg/dL Ur Leukocyte Esterase Neg (Negative) [place]/uL Urine RBC (Auto) 12 H (0-3) /hpf Urine Microscopic WBC 1 (0-5) /hpf Urine Bacteria Rare (<OCC) Vancomycin Trough (5.0-10.0) ug/mL 05/14/18 05/14/18 05/14/18 Range/Units 23:50 12:00 12:00 WBC 4.9 5.3 (4.8-10.8) K/uL RBC 2.98 L 3.08 L (4.40-5.90) Mil/uL Hgb 8.4 L 8.7 L (12.0-18.0) g/dL Hct 26.0 L 26.6 L (35.0-51.0) % MCV 87.2 86.4 (80.0-94.0) fl MCH 28.1 28.1 (27.0-31.0) pg MCHC 32.2 L 32.5 L (33.0-37.0) g/dL RDW 18.6 H 18.4 H (11.5-14.5) % Plt Count 81 L 76 L (130-400) K/uL APTT (25.6-37.1) Seconds Sodium (132-148) mmol/l Potassium (3.6-5.0) MMOL/L Chloride (98-107) mmol/L Carbon Dioxide (22-30) mmol/L Anion Gap (10-20) BUN (9-20) mg/dl Creatinine (0.8-1.5) mg/dl Est GFR ( Amer) Est GFR (Non-Af Amer) Random Glucose (75-110) mg/dL Calcium (8.4-10.2) mg/dL Phosphorus (2.5-4.5) mg/dl Magnesium (1.6-2.3) MG/DL Total Bilirubin (0.2-1.3) mg/dl AST (17-59) U/L ALT (21-72) U/L Alkaline Phosphatase (38-126) U/L Ammonia (16-60) umo/L Total Protein (6.3-8.2) G/DL Albumin (3.5-5.0) g/dL Globulin (2.2-3.9) gm/dL Albumin/Globulin Ratio (1.0-2.1) Urine Color (YELLOW) Urine Clarity (Clear) Urine pH (5.0-8.0) Ur Specific [place] (1.003-1.030) Urine Protein (NEGATIVE) mg/dL Urine Glucose (UA) (Normal) mg/dL Urine Ketones (NEGATIVE) mg/dL Urine Blood (NEGATIVE) Urine Nitrate (NEGATIVE) Urine Bilirubin (NEGATIVE) Urine Urobilinogen (0.2-1.0) mg/dL Ur Leukocyte Esterase (Negative) [place]/uL Urine RBC (Auto) (0-3) /hpf Urine Microscopic WBC (0-5) /hpf Urine Bacteria (<OCC) Vancomycin Trough 9.4 (5.0-10.0) ug/mL Laboratory Results - last 24 hr 05/14/18 05/14/18 05/14/18 12:00 12:00 23:50 WBC 5.3 4.9 RBC 3.08 L 2.98 L Hgb 8.7 L 8.4 L Hct 26.6 L 26.0 L MCV 86.4 87.2 MCH 28.1 28.1 MCHC 32.5 L 32.2 L RDW 18.4 H 18.6 H Plt Count 76 L 81 L APTT Sodium Potassium Chloride Carbon Dioxide Anion Gap BUN Creatinine Est GFR ( Amer) Est GFR (Non-Af Amer) Random Glucose Calcium Phosphorus Magnesium Total Bilirubin AST ALT Alkaline Phosphatase Ammonia Total Protein Albumin Globulin Albumin/Globulin Ratio Urine Color Urine Clarity Urine pH Ur Specific [place] Urine Protein Urine Glucose (UA) Urine Ketones Urine Blood Urine Nitrate Urine Bilirubin Urine Urobilinogen Ur Leukocyte Esterase Urine RBC (Auto) Urine Microscopic WBC Urine Bacteria Vancomycin Trough 9.4 05/14/18 05/14/18 05/15/18 23:50 23:59 04:40 WBC RBC Hgb Hct MCV MCH MCHC RDW Plt Count APTT Sodium 144 Potassium 3.1 L Chloride 121 H Carbon Dioxide 14 L Anion Gap 12 BUN 15 Creatinine 0.7 L Est GFR ( Amer) > 60 Est GFR (Non-Af Amer) > 60 Random Glucose 112 H Calcium 7.2 L Phosphorus Magnesium Total Bilirubin AST ALT Alkaline Phosphatase Ammonia 27 D Total Protein Albumin Globulin Albumin/Globulin Ratio Urine Color [place] Urine Clarity Clear Urine pH 5.0 Ur Specific [place] 1.039 H Urine Protein Negative Urine Glucose (UA) Neg Urine Ketones Negative Urine Blood Moderate Urine Nitrate Negative Urine Bilirubin Negative Urine Urobilinogen 2.0 Ur Leukocyte Esterase Neg Urine RBC (Auto) 12 H Urine Microscopic WBC 1 Urine Bacteria Rare Vancomycin Trough 05/15/18 05/15/18 05/15/18 04:42 04:42 04:42 WBC 4.7 L RBC 2.89 L Hgb 8.2 L Hct 25.5 L MCV 88.2 MCH 28.5 MCHC 32.3 L RDW 18.4 H Plt Count 89 L APTT 34.6 Sodium 146 Potassium 3.5 L Chloride 124 H Carbon Dioxide 15 L Anion Gap 11 BUN 16 Creatinine 0.7 L Est GFR ( Amer) > 60 Est GFR (Non-Af Amer) > 60 Random Glucose 103 Calcium 7.2 L Phosphorus 3.2 Magnesium 1.8 Total Bilirubin 2.7 H AST 61 H ALT 34 Alkaline Phosphatase 114 Ammonia Total Protein 5.5 L Albumin 2.0 L Globulin 3.5 Albumin/Globulin Ratio 0.6 L Urine Color Urine Clarity Urine pH Ur Specific [place] Urine Protein Urine Glucose (UA) Urine Ketones Urine Blood Urine Nitrate Urine Bilirubin Urine Urobilinogen Ur Leukocyte Esterase Urine RBC (Auto) Urine Microscopic WBC Urine Bacteria Vancomycin Trough Fingerstick Blood Sugar Results: 134 Critical Care Progress Note - Nutrition Nutrition: Nutrition Category Date Time Status NPO Diet [DIET] Diets 05/13/18 Breakfast Active Assessment/Plan - Assessment and Plan (Free Text) Assessment: A/P Respiratory failure, sepsis, GI bleeding, pneumonia, anemia, altered mental status, ETOH abuse, hepatic encephalopathy - Ventilatory support - Pulmonary toilets - GI follow up - Continue meds - Follow up labs Critical care 35 min
[2018-05-15] MEDS: Thiamine 100 mg/ml Inj IM SCH (08:32)
--- NOTE | 2018-05-15 09:45 | CP.PCM.PN ---
Subjective - Date & Time of Evaluation Date of Evaluation: 05/15/18 Time of Evaluation: 11:12 - Subjective Subjective: Patient seen and examined at bedside this morning. There are no acute events overnight, NAD. Patient remains intubated. Patient continues to have bloody bowel movements. Vent setting PRVC Tidal volume 450, Rate 12, Peep 5, FIO2 40% Objective - Vital Signs/Intake and Output Vital Signs (last 24 hours): Temp Pulse Resp BP Pulse Ox 98.5 F 82 21 147/83 97 05/15/18 08:00 05/15/18 08:00 05/15/18 08:00 05/15/18 08:00 05/15/18 08:00 Intake and Output: 05/15/18 05/15/18 06:59 18:59 Intake Total 1482 160 Output Total 1150 Balance 332 160 - Medications Medications: Current Medications Acetaminophen (Tylenol 650 Mg Supp) 650 mg MT Q6 PRN PRN Reason: Fever >100.4 F Acetaminophen (Tylenol 650mg/20.3ml Solution Ud) 650 mg PO Q6 PRN PRN Reason: Fever Last Admin: 05/15/18 00:18 Dose: 650 mg Vancomycin HCl 1 gm/ Sodium (Chloride) 250 mls @ 166.667 mls/hr IVPB Q12H JANNIE; Protocol Last Admin: 05/15/18 00:20 Dose: 166.667 mls/hr Piperacillin Sod/Tazobactam (Sod 3.375 gm/ Sodium Chloride) 100 mls @ 100 mls/hr IVPB Q6 JANNIE; Protocol Last Admin: 05/15/18 03:51 Dose: 100 mls/hr Pantoprazole Sodium 40 mg/ (Sodium Chloride) 100 mls @ 20 mls/hr IVPB Q5H JANNIE Last Admin: 05/15/18 08:32 Dose: 20 mls/hr Ceftriaxone Sodium 1 gm/ (Sodium Chloride) 100 mls @ 100 mls/hr IVPB DAILY [facility]; Protocol Last Admin: 05/15/18 08:33 Dose: 100 mls/hr Multivitamins/Vitamin C 10 ml/Folic Acid 1 mg/ Thiamine HCl 100 mg/ Dextrose/Sodium Chloride 1,011.2 mls @ 100 mls/hr IV .Q10H7M JANNIE Stop: 05/16/18 08:16 Lactulose (Enulose) 20 gm NG Q4H JANNIE Last Admin: 05/15/18 08:31 Dose: 20 gm Lorazepam (Ativan) 2 mg IVP Q4 PRN PRN Reason: Agitation Last Admin: 05/15/18 08:38 Dose: 2 mg Ondansetron HCl (Zofran Inj) 4 mg IVP Q6 PRN PRN Reason: Nausea/Vomiting Thiamine HCl (Vitamin B1 Inj) 100 mg IM DAILY JANNIE Stop: 05/16/18 09:01 Last Admin: 05/15/18 08:32 Dose: 100 mg - Labs Labs: 05/15/18 04:42 05/15/18 04:42 PT 16.1 Seconds (9.8-13.1) H 05/12/18 21:35 INR 1.4 05/12/18 21:35 APTT 34.6 Seconds (25.6-37.1) 05/15/18 04:42 - Head Exam Head Exam: ATRAUMATIC, NORMOCEPHALIC - Eye Exam Eye Exam: PERRL - ENT Exam ENT Exam: Mucous Membranes Dry - Respiratory Exam Respiratory Exam: Rhonchi (bibasilar lobes) - Cardiovascular Exam Cardiovascular Exam: REGULAR RHYTHM, +S1, +S2. absent: Tachycardia - Neurological Exam Neurological Exam: absent: Alert, Awake Additional comments: not sedated but remains lethargic, responds w/ painful stimuli Assessment and Plan - Assessment and Plan (Free Text) Assessment: 54 y/o man w/ pmh of ETOH abuse, unwitnessed seizures, cirrhosis (s/p TIPS), hep atic encephalopathy admitted for GI bleed, anemia, sepsis and pneumonia. Plan: Sepsis - resolving -no tachycardia -febrile overnight 100.6 -lactate 0.9 -Bcx: no growth -Ucx: gram + cocci -c/w IV fluids -monitor vitals -Tylenol PRN fever -Cont IV ABx Acute GI bleed -Hematemesis and hematochezia, lower VS upper GI bleed -Hb 8.2 -s/p 4 units of PRBC order given acute bleeding -Last Endoscopy 04/2018: normal esophagus, multiple non-bleeding erosions found in the stomach, normal duodenum (Dr. Swartz) -c/w IV protonix -NPO -c/w IVF D% 1/2 NS w/ MV, thiamine, folic acid @ 100 mL/hr -Zofran PRN -GI consulted, follow up recs -Aspiration precautions -f/u CBC B/L Pneumonia -CT chest sig for Bilateral basilar multi-focal bronchopneumonia -HCAP vs aspiration pneumonia given ETOH abuse -Follow up official CT and CXR readings -c/w Vanc 1 gm IV Q12h day 3 -c/w Zosyn 3.375 gm IV Q6h day 3 -f/u vanc trough UTI -Ucx: gram + cocci -c/w rocephin 1 gm IV daily day 3 Normocytic Anemia -acute on chronic -Acute GI bleed -s/p transfuse 4 units of PRBC -follow up CBC -anticipate additional PRBC units Hyperammonemia - resolved -Ammonia level 27 -Patient responsive to painful stimuli -NPO -Lactulose 20 gm via NG Q4h -consider rifaximin and PO lactulose once GI bleeding stops Hypomagnesemia - resolved -Mg 1.8 Liver Cirrhosis -chronic, 2/2 to ETOH abuse -MELD's Score 13 Pancytopenia -chronic -likely 2/2 to ETOH abuse and cirrhosis Alcohol Abuse -chronic -ETOH <10 -CIWA 7 on admission -c/w CIWA protocol -Ativan 2mg IVP PRN ETOH withdrawal -Monitor for signs of DT Seizure Disorder -chronic, unwitnessed -hold Keppra now, NPO -Seizure precautions DVT prophylaxis -No Lovenox at this time given acute GI bleeding -c/w SCD for now
--- NOTE | 2018-05-15 10:23 | RAD ---
Date of service: 05/15/2018 HISTORY: reevaluate COMPARISON: Comparison chest 05/14/2018.. FINDINGS: In situ ETT, the tip of which lies 5.78 cm above maranda. NGT is present, tip of which lies just below EG junction and could be advanced. LUNGS: Bibasilar atelectasis and/or infiltrates right greater than left. Increased/coarsened interstitial markings with few scattered peribronchial cuffing changes. PLEURA: No significant pleural effusion identified, no pneumothorax apparent. CARDIOVASCULAR: No aortic atherosclerotic calcification present. Normal cardiac size. No pulmonary vascular congestion. OSSEOUS STRUCTURES: No significant abnormalities. VISUALIZED UPPER ABDOMEN: Normal. OTHER FINDINGS: None. IMPRESSION: Support lines and tubes as above. Bibasilar atelectasis and/or infiltrates right greater than left. Increased-coarsened interstitial markings with few scattered peribronchial cuffing changes.
[2018-05-15] MEDS: Multivitamin (MVI) 10 ML, Folic Acid 1 MG, Thiamine 100 MG in Dextrose 5%/0.45% NS 1,00... IV SCH ×2 (11:42→22:30)
[2018-05-15] MEDS ORDERED: Propofol 10 mg/ml 2,000 MG/200 ML VIAL ONE (16:32)
[2018-05-15] MEDS ORDERED: Propofol 10 mg/ml 1,000 MG/100 ML VIAL IV SCH (17:15)
[2018-05-15] MEDS: Propofol 10 mg/ml 1,000 MG/100 ML VIAL IV SCH (19:30)
--- NOTE | 2018-05-15 23:55 | CP.PCM.PN ---
Subjective - Date & Time of Evaluation Date of Evaluation: 05/15/18 Time of Evaluation: 10:00 - Subjective Subjective: Patient remains intubated. No evidence of GI bleeding Objective - Vital Signs/Intake and Output Vital Signs (last 24 hours): Temp Pulse Resp BP Pulse Ox 98.5 F 98 H 18 136/74 99 05/15/18 20:00 05/15/18 22:00 05/15/18 22:00 05/15/18 22:00 05/15/18 22:00 Intake and Output: 05/15/18 05/16/18 18:59 06:59 Intake Total 1810 400 Output Total 1650 Balance 160 400 - Medications Medications: Current Medications Acetaminophen (Tylenol 650 Mg Supp) 650 mg [place] Q6 PRN PRN Reason: Fever >100.4 F Acetaminophen (Tylenol 650mg/20.3ml Solution Ud) 650 mg PO Q6 PRN PRN Reason: Fever Last Admin: 05/15/18 00:18 Dose: 650 mg Vancomycin HCl 1 gm/ Sodium (Chloride) 250 mls @ 166.667 mls/hr IVPB Q12H JANNIE; Protocol Last Admin: 05/15/18 12:51 Dose: 166.667 mls/hr Piperacillin Sod/Tazobactam (Sod 3.375 gm/ Sodium Chloride) 100 mls @ 100 mls/hr IVPB Q6 JANNIE; Protocol Last Admin: 05/15/18 21:00 Dose: 100 mls/hr Pantoprazole Sodium 40 mg/ (Sodium Chloride) 100 mls @ 20 mls/hr IVPB Q5H JANNIE Last Admin: 05/15/18 14:30 Dose: 20 mls/hr Ceftriaxone Sodium 1 gm/ (Sodium Chloride) 100 mls @ 100 mls/hr IVPB DAILY JANNIE; Protocol Last Admin: 05/15/18 08:33 Dose: 100 mls/hr Multivitamins/Vitamin C 10 ml/Folic Acid 1 mg/ Thiamine HCl 100 mg/ Dextrose/Sodium Chloride 1,011.2 mls @ 100 mls/hr IV .Q10H7M JANNIE Stop: 05/16/18 08:16 Last Admin: 05/15/18 22:30 Dose: Not Given Propofol (Diprivan) 1,000 mg in 100 mls @ 2.381 mls/hr IV .Q24H JANNIE; Protocol Stop: 05/16/18 17:05 Last Admin: 05/15/18 16:35 Dose: 5 mcg/kg/min, 2.381 mls/hr Propofol (Diprivan) 1,000 mg in 100 mls @ 7.144 mls/hr IV .Q14H JANNIE; Protocol Stop: 05/16/18 22:32 Lactulose (Enulose) 20 gm NG DAILY [facility] Lorazepam (Ativan) 2 mg IVP Q4 PRN PRN Reason: Agitation Last Admin: 05/15/18 12:43 Dose: 2 mg Ondansetron HCl (Zofran Inj) 4 mg IVP Q6 PRN PRN Reason: Nausea/Vomiting Thiamine HCl (Vitamin B1 Inj) 100 mg IM DAILY JANNIE Stop: 05/16/18 09:01 Last Admin: 05/15/18 08:32 Dose: 100 mg - Labs Labs: 05/15/18 04:42 05/15/18 04:42 PT 16.1 Seconds (9.8-13.1) H 05/12/18 21:35 INR 1.4 05/12/18 21:35 APTT 34.6 Seconds (25.6-37.1) 05/15/18 04:42 - Head Exam Head Exam: ATRAUMATIC - Eye Exam Eye Exam: Normal appearance - Respiratory Exam Respiratory Exam: Clear to Ausculation Bilateral - Cardiovascular Exam Cardiovascular Exam: REGULAR RHYTHM, +S1, +S2 - GI/Abdominal Exam GI & Abdominal Exam: Soft, Normal Bowel Sounds. absent: Tenderness Assessment and Plan (1) GI bleed Assessment & Plan: No GI bleeding since this admission. Status: Acute (2) Cirrhosis of liver Assessment & Plan: Ammonia level now normal with lactulose therapy. Status: Acute
[2018-05-16] MEDS: Pantoprazole 40 MG in Sodium Chloride 0.9% 100 ML IVPB SCH ×3 (00:30→10:40)
[2018-05-16] MEDS: Piperacillin/Tazobact 3.375 GM in Sodium Chloride 0.9% 100 ML IVPB SCH ×4 (04:17→21:00)
[2018-05-16 05:20] LABS: ABG ALLEN TEST YES; ARTERIAL BLOOD GAS HCO3 21.4 mmol/L (21-28); ARTERIAL BLOOD GAS O2 CAPACITY 11.3 mL/dL (16-24); ARTERIAL BLOOD GAS O2 CONTENT 11.2 ML/dL (15-23); ARTERIAL BLOOD GAS O2 SAT 99.2 % (95-98); ARTERIAL BLOOD GAS PCO2 28 mm/Hg (35-45); ARTERIAL BLOOD GAS PH 7.44 (7.35-7.45); ARTERIAL BLOOD GAS PO2 124 mm/Hg (80-100); ARTERIAL BLOOD GAS TCO2 19.9 mmol/L (22-28)
[2018-05-16 05:49] LABS: ALB/GLOB RATIO 0.6 (1.0-2.1); ALT/SGPT 34 U/L (21-72); AST/SGOT 58 U/L (17-59); BLOOD UREA NITROGEN 10 mg/dl (9-20); GFR NON-AFRICAN AMERICAN > 60
[2018-05-16 06:22] LABS: HEMOGLOBIN 8.1 g/dL (12.0-18.0); MEAN CELL VOLUME 87.7 fl (80.0-94.0); MEAN CORPUSCULAR HEMOGLOBIN 28.7 pg (27.0-31.0); MEAN CORPUSCULAR HGB CONC 32.8 g/dL (33.0-37.0); RBC 2.81 Mil/uL (4.40-5.90); RED CELL DISTRIBUTION WIDTH 18.8 % (11.5-14.5); WHITE BLOOD COUNT 2.8 K/uL (4.8-10.8)
[2018-05-16] MEDS: Multivitamin (MVI) 10 ML, Folic Acid 1 MG, Thiamine 100 MG in Dextrose 5%/0.45% NS 1,00... IV SCH (06:29)
--- NOTE | 2018-05-16 07:24 | RAD ---
Date of service: 05/16/2018 HISTORY: intubated COMPARISON: Portable chest 05/15/2018 4:58 a.m.. FINDINGS: LUNGS: Endotracheal tube terminates 0.8 cm above the maranda with nasogastric tube advanced further into the left upper quadrant abdomen. Diminished left basilar atelectasis with mild residual right base. Borderline diffusely increased interstitial markings again identified. PLEURA: No significant pleural effusion identified, no pneumothorax apparent. CARDIOVASCULAR: Calcific atherosclerotic changes are seen related to the thoracic aorta. Normal cardiac size. No pulmonary vascular congestion. OSSEOUS STRUCTURES: No significant abnormalities. VISUALIZED UPPER ABDOMEN: Normal. OTHER FINDINGS: None. IMPRESSION: Endotracheal tube advanced to terminate 4.8 cm above the maranda. Nasogastric tube advanced further into the left upper quadrant abdomen. Limited patchy atelectasis or infiltrate right base, diminished at the left. Borderline diffuse interstitial changes bilaterally.
--- NOTE | 2018-05-16 07:34 | CP.PCM.PN ---
<Josselyn Lucas - Last Filed: 05/16/18 10:20> Subjective - Date & Time of Evaluation Date of Evaluation: 05/16/18 Time of Evaluation: 08:00 - Subjective Subjective: Overnight, pt had intermittent episodes of agitation and propofol drip titrated as needed. Now running at 25mcg/hr. Pt seen and evaluated this morning. Opens eyes to painful stimulus. Intubated on MV. OG tube with feeds running. Rectal bag with dark green/black, 300cc. Objective - Vital Signs/Intake and Output Vital Signs (last 24 hours): Temp Pulse Resp BP Pulse Ox 98.5 F 70 18 122/70 100 05/16/18 04:00 05/16/18 07:00 05/16/18 07:00 05/16/18 07:00 05/16/18 07:00 Intake and Output: 05/16/18 05/16/18 06:59 18:59 Intake Total 1120 Output Total 750 Balance 370 - Medications Medications: Current Medications Acetaminophen (Tylenol 650 Mg Supp) 650 mg WV Q6 PRN PRN Reason: Fever >100.4 F Acetaminophen (Tylenol 650mg/20.3ml Solution Ud) 650 mg PO Q6 PRN PRN Reason: Fever Last Admin: 05/15/18 00:18 Dose: 650 mg Vancomycin HCl 1 gm/ Sodium (Chloride) 250 mls @ 166.667 mls/hr IVPB Q12H JANNIE; Protocol Last Admin: 05/16/18 02:12 Dose: 166.667 mls/hr Piperacillin Sod/Tazobactam (Sod 3.375 gm/ Sodium Chloride) 100 mls @ 100 mls/hr IVPB Q6 JANNIE; Protocol Last Admin: 05/16/18 04:17 Dose: 100 mls/hr Pantoprazole Sodium 40 mg/ (Sodium Chloride) 100 mls @ 20 mls/hr IVPB Q5H JANNIE Last Admin: 05/16/18 05:30 Dose: 20 mls/hr Ceftriaxone Sodium 1 gm/ (Sodium Chloride) 100 mls @ 100 mls/hr IVPB DAILY JANNIE; Protocol Last Admin: 05/15/18 08:33 Dose: 100 mls/hr Multivitamins/Vitamin C 10 ml/Folic Acid 1 mg/ Thiamine HCl 100 mg/ Dextrose/Sodium Chloride 1,011.2 mls @ 100 mls/hr IV .Q10H7M [facility] Stop: 05/16/18 08:16 Last Admin: 05/16/18 06:29 Dose: Not Given Propofol (Diprivan) 1,000 mg in 100 mls @ 7.144 mls/hr IV .Q14H JANNIE; Protocol Stop: 05/16/18 22:32 Last Titration: 05/16/18 06:59 Dose: 30 mcg/kg/min, 14.288 mls/hr Lactulose (Enulose) 20 gm NG DAILY [facility] Lorazepam (Ativan) 2 mg IVP Q4 PRN PRN Reason: Agitation Last Admin: 05/15/18 12:43 Dose: 2 mg Ondansetron HCl (Zofran Inj) 4 mg IVP Q6 PRN PRN Reason: Nausea/Vomiting Thiamine HCl (Vitamin B1 Inj) 100 mg IM DAILY [facility] Stop: 05/16/18 09:01 Last Admin: 05/15/18 08:32 Dose: 100 mg - Labs Labs: 05/16/18 04:30 05/16/18 04:30 PT 16.1 Seconds (9.8-13.1) H 05/12/18 21:35 INR 1.4 05/12/18 21:35 APTT 34.6 Seconds (25.6-37.1) 05/15/18 04:42 - Constitutional Appears: No Acute Distress - Head Exam Head Exam: NORMAL INSPECTION - Eye Exam Eye Exam: Scleral icterus. absent: Nystagmus Pupil Exam: PERRL - ENT Exam ENT Exam: Mucous Membranes Moist - Neck Exam Neck Exam: Full ROM - Respiratory Exam Respiratory Exam: Decreased Breath Sounds, Clear to Ausculation Bilateral, Rales (BL, scattered). absent: Wheezes - Cardiovascular Exam Cardiovascular Exam: REGULAR RHYTHM, +S1, +S2. absent: Murmur - GI/Abdominal Exam GI & Abdominal Exam: Distended, Soft, Normal Bowel Sounds. absent: Tenderness - Extremities Exam Extremities Exam: Pedal Edema (trace) - Neurological Exam Neurological Exam: absent: Alert (grimaces and occassionally opens eyes to painful stimulus, gag reflex in tact), Awake Assessment and Plan - Assessment and Plan (Free Text) Assessment: 54 y/o man w/ pmh of ETOH abuse, unwitnessed seizures, cirrhosis (s/p TIPS), hepatic encephalopathy admitted for GI bleed, anemia, sepsis and pneumonia. Plan: Respiratory Failure, impending -Intubated prophylactically 05/13 given poor mental status and labored breathing -Currently on MV, setting as ordered. Consider weaning trials. Sepsis - resolving -no longer meets sepsis criteria -afebrile for 24 hours -lactate 0.9 -Bcx: gram positive cocci (prelim reading) -Ucx: gram + cocci (pending final read) -c/w IV fluids -monitor vitals -Tylenol PRN fever -Cont IV ABx Acute GI bleed, resolved -Hematemesis on admission, no new episodes -Hb 8.1 today -s/p 4 units of PRBC order given acute bleeding -Last Endoscopy 04/2018: normal esophagus, multiple non-bleeding erosions found in the stomach, normal duodenum (Dr. Swartz) -Zofran PRN -GI consulted- no plan for scope. Tranfuse prn. C/W PPI drip -f/u CBC B/L Pneumonia -CT chest sig for Bilateral basilar multi-focal bronchopneumonia -HCAP vs aspiration pneumonia given ETOH abuse -c/w Vanc 1 gm IV Q12h day 3 -c/w Zosyn 3.375 gm IV Q6h day 3 UTI -Ucx: gram + cocci (pending final read) -c/w rocephin 1 gm IV daily day 3 Normocytic Anemia -acute on chronic -Acute GI bleed -s/p transfuse 4 units of PRBC -follow up CBC -anticipate additional PRBC units Hyperammonemia - resolved -Ammonia level 27 -Patient responsive to painful stimuli -Lactulose 20 gm po daily Hypomagnesemia - resolved -Mg 1.4 today -repleted with 2gm MgSo4 Liver Cirrhosis -chronic, 2/2 to ETOH abuse -MELD's Score 13 -Rocephin for SBP prophylaxis Pancytopenia -chronic -likely 2/2 to ETOH abuse and cirrhosis Alcohol Abuse -chronic -ETOH <10 -CIWA 7 on admission -c/w CIWA protocol -Ativan 2mg IVP PRN ETOH withdrawal -Monitor for signs of DT Seizure Disorder -chronic, unwitnessed -hold Keppra now since pt is on propofol -Seizure precautions DVT prophylaxis -Lovenox started today since UGIB resolved -c/w SCD for now <Sandra Lei - Last Filed: 05/16/18 14:45> Objective - Vital Signs/Intake and Output Vital Signs (last 24 hours): Temp Pulse Resp BP Pulse Ox 98.7 F 73 17 120/66 99 05/16/18 12:00 05/16/18 12:00 05/16/18 12:00 05/16/18 12:00 05/16/18 12:00 Intake and Output: 05/16/18 05/16/18 06:59 18:59 Intake Total 1120 213 Output Total 750 Balance 370 213 - Medications Medications: Current Medications Acetaminophen (Tylenol 650 Mg Supp) 650 mg WV Q6 PRN PRN Reason: Fever >100.4 F Acetaminophen (Tylenol 650mg/20.3ml Solution Ud) 650 mg PO Q6 PRN PRN Reason: Fever Last Admin: 05/15/18 00:18 Dose: 650 mg Enoxaparin Sodium (Lovenox) 40 mg SC DAILY JANNIE; Protocol Last Admin: 05/16/18 12:58 Dose: 40 mg Vancomycin HCl 1 gm/ Sodium (Chloride) 250 mls @ 166.667 mls/hr IVPB Q12H JANNIE; Protocol Last Admin: 05/16/18 14:31 Dose: 166.667 mls/hr Piperacillin Sod/Tazobactam (Sod 3.375 gm/ Sodium Chloride) 100 mls @ 100 mls/hr IVPB Q6 JANNIE; Protocol Last Admin: 05/16/18 10:38 Dose: 100 mls/hr Propofol (Diprivan) 1,000 mg in 100 mls @ 7.144 mls/hr IV .Q14H JANNIE; Protocol Stop: 05/16/18 22:32 Last Titration: 05/16/18 09:00 Dose: 25 mcg/kg/min, 11.907 mls/hr Potassium Chloride (Potassium Cl 10meq/50ml Sterile Water) 50 mls @ 50 mls/hr IVPB Q1 JANNIE Stop: 05/16/18 16:59 Lactulose (Enulose) 20 gm NG DAILY JANNIE Last Admin: 05/16/18 08:33 Dose: 20 gm Lorazepam (Ativan) 2 mg IVP Q4 PRN PRN Reason: Agitation Last Admin: 05/15/18 12:43 Dose: 2 mg Ondansetron HCl (Zofran Inj) 4 mg IVP Q6 PRN PRN Reason: Nausea/Vomiting Pantoprazole Sodium (Protonix Inj) 40 mg IVP Q12 JANNIE Last Admin: 05/16/18 12:58 Dose: 40 mg Thiamine HCl (Vitamin B1 Tab) 100 mg PO DAILY [facility] Last Admin: 05/16/18 12:58 Dose: 100 mg - Labs Labs: 05/16/18 04:30 05/16/18 04:30 PT 16.1 Seconds (9.8-13.1) H 05/12/18 21:35 INR 1.4 05/12/18 21:35 APTT 34.6 Seconds (25.6-37.1) 05/15/18 04:42 Attending/Attestation - Attestation I have personally seen and examined this patient.: Yes I have fully participated in the care of the patient.: Yes I have reviewed all pertinent clinical information, including history, physical exam and plan: Yes
[2018-05-16] MEDS ORDERED: Magnesium Sulfate 2 gm/50 ml 2 GM/50 ML BAG IVPB ONE ×2 (08:00→12:03)
--- NOTE | 2018-05-16 08:01 | CP.CCUPN ---
CCU Subjective - Physician Review Subjective (Free Text): 05/16/18 11:51 The patient was Seen and examined by me at the bedside during ICU round, Medical records reviewed and Management issues were discussed and formulated with the house staff. Events reviewed 53 Years old Male with PMHx of HTN, Pancreatitis, Pneumonia, alcohol abuse, alcoholic cirrhosis S/P Tips, Gastritis, esophageal varices, Anemia, Anxiety, herniated disc, Deep Vein Thrombosis, Fractures, Gall Bladder Disease (Cholelithiasis), Seizures and Chronic Pain (left shoulder) Who was admitted to ICU due to acute GI bleeding, hypotension, sepsis from pneumonia, Now intubated for hypoxemic respiratory failure Pt with hx multiple admissions due to GI bleeding and Alcohol related commodities, he had a recent EJD. This morning, he is sedated and orally intubated Tolerating NG tube feeding with Jevity 1.2 Clinically improving, No Vasopressors S/P total of 4U, H/H improved and stable Will switch Protonix drip to IV daily Labs, CXR, ABG reviewed, Weaning off Fio2 down to 60% now This morning labs revealed no Leucocytosis, Stable renal function BUN/Cr 10/0.6 Urine C/S 05/12 Gram positive cocci Blood C/S 05/14 Gram positive cocci Will continue IV Vanco and Piperacillin Sod/Tazobactam, but discontinue Ceftriaxone Will discontinue central line once PIV inserted K and Mg supplemented CXR: 05/16/2018 IMPRESSION: Endotracheal tube advanced to terminate 4.8 cm above the maranda. Nasogastric tube advanced further into the left upper quadrant abdomen. Limited patchy atelectasis or infiltrate right base, diminished at the left. Borderline diffuse interstitial changes bilaterally. Critical Care Time Spent (in minutes): 42 CCU Objective - Vital Signs / Intake & Output Vital Signs (Last 4 hours): Vital Signs Pulse Resp BP Pulse Ox 05/16/18 07:00 70 18 122/70 100 05/16/18 06:00 73 20 115/65 99 11/26/18 05:00 71 19 116/66 100 Intake and Output (Last 8hrs): Intake & Output 05/15/18 05/16/18 05/16/18 22:59 06:59 14:59 Intake Total 980 720 Output Total 1500 750 Balance -520 -30 Weight 175 lb Intake: IV 700 370 Intake, Piggyback 280 350 Output: Urine 1400 750 Urethral (Ty) 1400 750 Stool 100 Other: # Bowel Movements 0 - Physical Exam Head: Positive for: Atraumatic, Normocephalic Pupils: Positive for: PERRL Mouth: Positive for: Dry Nose (External): Positive for: Atraumatic Neck: Positive for: Normal Range of Motion. Negative for: Meningeal Signs, Lymphadenopathy Respiratory/Chest: Positive for: Rhonchi (bilateral lower lobes) Cardiovascular: Positive for: Normal S1, S2. Negative for: Tachycardic Abdomen: Positive for: Normal Bowel Sounds. Negative for: Tenderness, Guarding Upper Extremity: Positive for: Normal Inspection Lower Extremity: Positive for: Normal Inspection Neurological: Positive for: Other (on ventilator) - Medications Active Medications: Active Medications Generic Name Dose Route Start Last Admin Trade Name Freq PRN Reason Stop Dose Admin Acetaminophen 650 mg 05/13/18 03:32 Tylenol 650 Mg Supp [place] Q6 PRN Fever >100.4 F Acetaminophen 650 mg 05/14/18 23:41 05/15/18 00:18 Tylenol 650mg/20.3ml Solution Ud PO 650 mg Q6 PRN Administration Fever Vancomycin HCl 1 gm/ Sodium 250 mls @ 166.667 mls/hr 05/13/18 13:00 05/16/18 02:12 Chloride IVPB 166.667 mls/hr Q12H JANNIE Administration Protocol Piperacillin Sod/Tazobactam 100 mls @ 100 mls/hr 05/13/18 09:30 05/16/18 04:17 Sod 3.375 gm/ Sodium Chloride IVPB 100 mls/hr Q6 JANNIE Administration Protocol Pantoprazole Sodium 40 mg/ 100 mls @ 20 mls/hr 05/13/18 11:00 05/16/18 05:30 Sodium Chloride IVPB 20 mls/hr Q5H JANNIE Administration 8 MG/HR Ceftriaxone Sodium 1 gm/ 100 mls @ 100 mls/hr 05/13/18 11:00 05/15/18 08:33 Sodium Chloride IVPB 100 mls/hr DAILY JANNIE Administration Protocol Multivitamins/Vitamin C 10 ml/ 1,011.2 mls @ 100 mls/hr 05/15/18 08:30 05/16/18 06:29 Folic Acid 1 mg/ Thiamine HCl IV 05/16/18 08:16 Not Given 100 mg/ Dextrose/Sodium .Q10H7M JANNIE Chloride Propofol 1,000 mg in 100 mls @ 7.144 mls/hr 05/15/18 19:30 05/16/18 06:59 Diprivan IV 05/16/18 22:32 30 mcg/kg/min .Q14H JANNIE 14.288 mls/hr Titration Protocol 15 MCG/KG/MIN Potassium Chloride 100 mls @ 50 mls/hr 05/16/18 08:00 Potassium Chloride 20 Meq/100 Ml IVPB 05/16/18 13:59 Q2 JANNIE Magnesium Sulfate 2 gm in 50 mls @ 50 mls/hr 05/16/18 08:00 Magnesium Sulfate 2 Gm/50 Ml Water IVPB 05/16/18 08:59 ONCE ONE 2 GM/HR Lactulose 20 gm 05/16/18 09:00 Enulose NG DAILY JANNIE Lorazepam 2 mg 05/15/18 08:35 05/15/18 12:43 Ativan IVP 2 mg Q4 PRN Administration Agitation Ondansetron HCl 4 mg 05/13/18 03:35 Zofran Inj IVP Q6 PRN Nausea/Vomiting Thiamine HCl 100 mg 05/14/18 09:00 05/15/18 08:32 Vitamin B1 Inj IM 05/16/18 09:01 100 mg DAILY JANNIE Administration - Patient Studies Lab Studies: Microbiology Studies 05/14/18 20:00 S.aureus & Coag-Neg Staph PNA FISH - Final Blood-Thru Central Line Blood Culture - Preliminary Gram Positive Cocci Gram Stain - Final 05/12/18 21:25 Blood Culture - Preliminary Blood NO GROWTH AFTER 3 DAYS 05/12/18 21:15 Blood Culture - Preliminary Blood NO GROWTH AFTER 3 DAYS 05/14/18 20:00 Blood Culture - Preliminary Blood-Thru Central Line Gram Positive Cocci Gram Stain - Final 05/12/18 22:40 Urine Culture - Final Urine,Clean Catch Gram Positive Cocci Lab Studies 1105/16/18 05/16/18 Range/Units 05:02 04:30 04:30 WBC 2.8 L (4.8-10.8) K/uL RBC 2.81 L (4.40-5.90) Mil/uL Hgb 8.1 L (12.0-18.0) g/dL Hct 24.7 L (35.0-51.0) % MCV 87.7 (80.0-94.0) fl MCH 28.7 (27.0-31.0) pg MCHC 32.8 L (33.0-37.0) g/dL RDW 18.8 H (11.5-14.5) % Plt Count 68 L D (130-400) K/uL pCO2 28 L (35-45) mm/Hg pO2 124 H (80-100) mm/Hg HCO3 21.4 (21-28) mmol/L ABG pH 7.44 (7.35-7.45) ABG Total CO2 19.9 L (22-28) mmol/L ABG O2 Saturation 99.2 H (95-98) % ABG O2 Content 11.2 L (15-23) ML/dL ABG Base Excess -4.5 L (-2.0-3.0) mmol/L ABG Hemoglobin 8.0 L (11.7-17.4) g/dL ABG Carboxyhemoglobin 0.5 (0.5-1.5) % POC ABG HHb (Measured) 0.8 (0.0-5.0) % ABG Methemoglobin 1.3 (0.0-3.0) % ABG O2 Capacity 11.3 L (16-24) mL/dL Jose Test Yes A-a O2 Difference 126.0 mm/Hg Hgb O2 Saturation 97.3 (95.0-98.0) % Vent Mode A/c Mechanical Rate 12 FiO2 40.0 % Tidal Volume 450 PEEP 5 Sodium 139 (132-148) mmol/l Potassium 3.1 L (3.6-5.0) MMOL/L Chloride 118 H (98-107) mmol/L Carbon Dioxide 18 L (22-30) mmol/L Anion Gap 6 L (10-20) BUN 10 (9-20) mg/dl Creatinine 0.6 L (0.8-1.5) mg/dl Est GFR ( Amer) > 60 Est GFR (Non-Af Amer) > 60 POC Glucose (mg/dL) (65-110) mg/dL Random Glucose 99 (75-110) mg/dL Calcium 7.0 L (8.4-10.2) mg/dL Phosphorus 3.5 (2.5-4.5) mg/dl Magnesium 1.4 L (1.6-2.3) MG/DL Total Bilirubin 2.1 H (0.2-1.3) mg/dl AST 58 (17-59) U/L ALT 34 (21-72) U/L Alkaline Phosphatase 118 (38-126) U/L Total Protein 5.5 L (6.3-8.2) G/DL Albumin 2.0 L (3.5-5.0) g/dL Globulin 3.5 (2.2-3.9) gm/dL Albumin/Globulin Ratio 0.6 L (1.0-2.1) 11/25/18 Range/Units 11:25 WBC (4.8-10.8) K/uL RBC (4.40-5.90) Mil/uL Hgb (12.0-18.0) g/dL Hct (35.0-51.0) % MCV (80.0-94.0) fl MCH (27.0-31.0) pg MCHC (33.0-37.0) g/dL RDW (11.5-14.5) % Plt Count (130-400) K/uL pCO2 (35-45) mm/Hg pO2 (80-100) mm/Hg HCO3 (21-28) mmol/L ABG pH (7.35-7.45) ABG Total CO2 (22-28) mmol/L ABG O2 Saturation (95-98) % ABG O2 Content (15-23) ML/dL ABG Base Excess (-2.0-3.0) mmol/L ABG Hemoglobin (11.7-17.4) g/dL ABG Carboxyhemoglobin (0.5-1.5) % POC ABG HHb (Measured) (0.0-5.0) % ABG Methemoglobin (0.0-3.0) % ABG O2 Capacity (16-24) mL/dL Jose Test A-a O2 Difference mm/Hg Hgb O2 Saturation (95.0-98.0) % Vent Mode Mechanical Rate FiO2 % Tidal Volume PEEP Sodium (132-148) mmol/l Potassium (3.6-5.0) MMOL/L Chloride (98-107) mmol/L Carbon Dioxide (22-30) mmol/L Anion Gap (10-20) BUN (9-20) mg/dl Creatinine (0.8-1.5) mg/dl Est GFR ( Amer) Est GFR (Non-Af Amer) POC Glucose (mg/dL) 104 (65-110) mg/dL Random Glucose (75-110) mg/dL Calcium (8.4-10.2) mg/dL Phosphorus (2.5-4.5) mg/dl Magnesium (1.6-2.3) MG/DL Total Bilirubin (0.2-1.3) mg/dl AST (17-59) U/L ALT (21-72) U/L Alkaline Phosphatase (38-126) U/L Total Protein (6.3-8.2) G/DL Albumin (3.5-5.0) g/dL Globulin (2.2-3.9) gm/dL Albumin/Globulin Ratio (1.0-2.1) Laboratory Results - last 24 hr 05/15/18 05/16/18 05/16/18 11:25 04:30 04:30 WBC 2.8 L RBC 2.81 L Hgb 8.1 L Hct 24.7 L MCV 87.7 MCH 28.7 MCHC 32.8 L RDW 18.8 H Plt Count 68 L D pCO2 pO2 HCO3 ABG pH ABG Total CO2 ABG O2 Saturation ABG O2 Content ABG Base Excess ABG Hemoglobin ABG Carboxyhemoglobin POC ABG HHb (Measured) ABG Methemoglobin ABG O2 Capacity Jose Test A-a O2 Difference Hgb O2 Saturation Vent Mode Mechanical Rate FiO2 Tidal Volume PEEP Sodium 139 Potassium 3.1 L Chloride 118 H Carbon Dioxide 18 L Anion Gap 6 L BUN 10 Creatinine 0.6 L Est GFR ( Amer) > 60 Est GFR (Non-Af Amer) > 60 POC Glucose (mg/dL) 104 Random Glucose 99 Calcium 7.0 L Phosphorus 3.5 Magnesium 1.4 L Total Bilirubin 2.1 H AST 58 ALT 34 Alkaline Phosphatase 118 Total Protein 5.5 L Albumin 2.0 L Globulin 3.5 Albumin/Globulin Ratio 0.6 L 05/16/18 05:02 WBC RBC Hgb Hct MCV MCH MCHC RDW Plt Count pCO2 28 L pO2 124 H HCO3 21.4 ABG pH 7.44 ABG Total CO2 19.9 L ABG O2 Saturation 99.2 H ABG O2 Content 11.2 L ABG Base Excess -4.5 L ABG Hemoglobin 8.0 L ABG Carboxyhemoglobin 0.5 POC ABG HHb (Measured) 0.8 ABG Methemoglobin 1.3 ABG O2 Capacity 11.3 L Jose Test Yes A-a O2 Difference 126.0 Hgb O2 Saturation 97.3 Vent Mode A/c Mechanical Rate 12 FiO2 40.0 Tidal Volume 450 PEEP 5 Sodium Potassium Chloride Carbon Dioxide Anion Gap BUN Creatinine Est GFR ( Amer) Est GFR (Non-Af Amer) POC Glucose (mg/dL) Random Glucose Calcium Phosphorus Magnesium Total Bilirubin AST ALT Alkaline Phosphatase Total Protein Albumin Globulin Albumin/Globulin Ratio Fingerstick Blood Sugar Results: 134 Review of Systems - Review of Systems Systems not reviewed;Unavailable: Intubated Critical Care Progress Note - Ventilator Checklist Head of Bed 30 Degrees: Yes Daily Sedation Vacation: Yes Daily Assessment of Readiness to Wean: Yes Daily Spontaneous Breathing Trial: Yes PUD Prophalyxis: Yes DVT Prophylaxis: Yes Oral Care with Chlorhexidine Gluconate {CHG}: Yes - Extremities/Vascular Does the Patient have a Central Venous Catheter?: Yes Does the Patient need a Central Venous Catheter?: Yes Does the Patient have a Ty Catheter?: Yes Does the Patient need a Ty Catheter?: Yes - Nutrition Nutrition: Nutrition Category Date Time Status NPO Diet [DIET] Diets 05/13/18 Breakfast Active Assessment/Plan (1) Acute upper GI hemorrhage Current Visit: Yes Status: Acute Priority: High Comment: Transfuse 4U packed RBC Serial CBCs q 12 /HR IV Hydration Switch PANTOPRAZOLE drip to IV BID (2) Acute respiratory failure Current Visit: Yes Status: Acute Priority: High Comment: Continue IV Vancomycin and Piperacillin Sod/Tazobactam PRN Diuresis Strict I&O, Even fluid balance Aggressive pulmonary toilet, chest PT, suctioning Vent weaning in progress Daily CAT/SB (3) Cirrhosis of liver Current Visit: Yes Status: Acute Priority: High Comment: S/P TIPS Continue with IV PPI infusion (4) Pneumonia Current Visit: Yes Status: Acute Priority: High Comment: Continue IV Vancomycin and Piperacillin Sod/Tazobactam (5) Bacteremia Current Visit: Yes Status: Acute Priority: High Comment: Continue IV Vancomycin and Piperacillin Sod/Tazobactam Repeat Blood C/S, if remains positive will consider ID consult Will discontinue central line (6) UTI (urinary tract infection) Current Visit: Yes Status: Acute Priority: High (7) Acute blood loss anemia Current Visit: Yes Status: Acute Priority: High - Assessment and Plan (Free Text) Assessment: HOB maintained at 30 degrees. Stress Ulcer prophylaxis with Protonix 40 mg IVP Q12H DVT prophylaxis with SCD, Lovenox Code Status: Full code Total critical care time 42 minutes
[2018-05-16] MEDS: Propofol 10 mg/ml 1,000 MG/100 ML VIAL IV SCH ×3 (08:12→20:49)
[2018-05-16] MEDS: Thiamine 100 mg/ml Inj IM SCH (08:34)
[2018-05-16] MEDS: Potassium Chloride 20 mEq 100 ML IVPB SCH ×3 (09:39→14:28)
[2018-05-16] MEDS ORDERED: Enoxaparin 40 mg Syringe SC SCH (10:45)
[2018-05-16] MEDS ORDERED: Potassium CL 10 MEQ/50 ML 50 ML IVPB SCH (13:00)
[2018-05-16 17:34] LABS: HEMOGLOBIN 8.2 g/dL (12.0-18.0); MEAN CELL VOLUME 87.5 fl (80.0-94.0); MEAN CORPUSCULAR HEMOGLOBIN 28.2 pg (27.0-31.0); MEAN CORPUSCULAR HGB CONC 32.3 g/dL (33.0-37.0); RBC 2.92 Mil/uL (4.40-5.90); RED CELL DISTRIBUTION WIDTH 18.5 % (11.5-14.5)
[2018-05-16 17:47] LABS: ALB/GLOB RATIO 0.6 (1.0-2.1); ALT/SGPT 45 U/L (21-72); AST/SGOT 59 U/L (17-59); BLOOD UREA NITROGEN 9 mg/dl (9-20); GFR NON-AFRICAN AMERICAN > 60
--- NOTE | 2018-05-16 22:09 | CP.PCM.PN ---
Subjective - Date & Time of Evaluation Date of Evaluation: 05/16/18 Time of Evaluation: 11:00 - Subjective Subjective: Patient on ventillator. Fever and oxygenation improving. No GI bleeding. Objective - Vital Signs/Intake and Output Vital Signs (last 24 hours): Temp Pulse Resp BP Pulse Ox 97.1 F L 66 12 110/60 99 05/16/18 19:00 05/16/18 21:00 05/16/18 21:00 05/16/18 21:00 05/16/18 21:00 Intake and Output: 05/16/18 05/17/18 18:59 06:59 Intake Total 1295 239 Output Total 600 Balance 695 239 - Medications Medications: Current Medications Acetaminophen (Tylenol 650 Mg Supp) 650 mg [place] Q6 PRN PRN Reason: Fever >100.4 F Acetaminophen (Tylenol 650mg/20.3ml Solution Ud) 650 mg PO Q6 PRN PRN Reason: Fever Last Admin: 05/15/18 00:18 Dose: 650 mg Enoxaparin Sodium (Lovenox) 40 mg SC DAILY JANNIE; Protocol Last Admin: 05/16/18 12:58 Dose: 40 mg Vancomycin HCl 1 gm/ Sodium (Chloride) 250 mls @ 166.667 mls/hr IVPB Q12H JANNIE; Protocol Last Admin: 05/16/18 14:31 Dose: 166.667 mls/hr Piperacillin Sod/Tazobactam (Sod 3.375 gm/ Sodium Chloride) 100 mls @ 100 mls/hr IVPB Q6 JANNIE; Protocol Last Admin: 05/16/18 21:00 Dose: 100 mls/hr Propofol (Diprivan) 1,000 mg in 100 mls @ 7.144 mls/hr IV .Q14H JANNIE; Protocol Stop: 05/16/18 22:32 Last Admin: 05/16/18 20:49 Dose: 20 mcg/kg/min, 9.525 mls/hr Lactulose (Enulose) 20 gm NG DAILY JANNIE Last Admin: 05/16/18 08:33 Dose: 20 gm Lorazepam (Ativan) 2 mg IVP Q4 PRN PRN Reason: Agitation Last Admin: 05/16/18 20:38 Dose: 2 mg Ondansetron HCl (Zofran Inj) 4 mg IVP Q6 PRN PRN Reason: Nausea/Vomiting Pantoprazole Sodium (Protonix Inj) 40 mg IVP Q12 [facility] Last Admin: 05/16/18 22:03 Dose: 40 mg Thiamine HCl (Vitamin B1 Tab) 100 mg PO DAILY [facility] Last Admin: 05/16/18 12:58 Dose: 100 mg - Labs Labs: 05/16/18 16:45 05/16/18 16:45 PT 16.1 Seconds (9.8-13.1) H 05/12/18 21:35 INR 1.4 05/12/18 21:35 APTT 34.6 Seconds (25.6-37.1) 05/15/18 04:42 - Head Exam Head Exam: ATRAUMATIC - Eye Exam Eye Exam: Normal appearance Pupil Exam: PERRL - Respiratory Exam Respiratory Exam: Clear to Ausculation Bilateral - Cardiovascular Exam Cardiovascular Exam: REGULAR RHYTHM - GI/Abdominal Exam GI & Abdominal Exam: Soft. absent: Tenderness Assessment and Plan (1) GI bleed Assessment & Plan: Hgb remains stable and no ongoing GI bleeding. Pulmonary infiltrates improving. On protonix. Status: Acute (2) Cirrhosis of liver Status: Acute
[2018-05-17] MEDS: Piperacillin/Tazobact 3.375 GM in Sodium Chloride 0.9% 100 ML IVPB SCH ×4 (03:08→22:00)
[2018-05-17 04:39] LABS: ABG ALLEN TEST YES; ARTERIAL BLOOD GAS HCO3 23.7 mmol/L (21-28); ARTERIAL BLOOD GAS O2 SAT 100.5 % (95-98); ARTERIAL BLOOD GAS PCO2 31 mm/Hg (35-45); ARTERIAL BLOOD GAS PH 7.45 (7.35-7.45); ARTERIAL BLOOD GAS PO2 118 mm/Hg (80-100); ARTERIAL BLOOD GAS TCO2 22.5 mmol/L (22-28)
[2018-05-17] MEDS ORDERED: Propofol 10 mg/ml 1,000 MG/100 ML VIAL IV SCH ×2 (05:45→22:45)
[2018-05-17 05:48] LABS: BLOOD UREA NITROGEN 10 mg/dl (9-20); GFR NON-AFRICAN AMERICAN > 60
[2018-05-17 05:59] LABS: BASO % 0.8 % (0.0-2.0); EOS # 0.1 K/uL (0.0-0.7); EOS % 5.7 % (0.0-4.0); HEMOGLOBIN 8.3 g/dL (12.0-18.0); LYMPH # 0.6 K/uL (1.0-4.3); LYMPH % 21.7 % (20.0-40.0); MEAN CELL VOLUME 87.8 fl (80.0-94.0); MEAN CORPUSCULAR HEMOGLOBIN 28.3 pg (27.0-31.0); MEAN CORPUSCULAR HGB CONC 32.2 g/dL (33.0-37.0); MEAN PLATELET VOLUME 7.7 fl (7.2-11.7); MONO # 0.3 K/uL (0.0-0.8); MONO % 12.6 % (0.0-10.0); NEUT # 1.5 K/uL (1.8-7.0); NEUT % 59.2 % (50.0-75.0); NRBC % 0.1 % (0.0-0.0); RBC 2.92 Mil/uL (4.40-5.90); RED CELL DISTRIBUTION WIDTH 18.8 % (11.5-14.5); WHITE BLOOD COUNT 2.6 K/uL (4.8-10.8)
--- NOTE | 2018-05-17 07:40 | CP.PCM.PN ---
<Josselyn Lucas - Last Filed: 05/17/18 10:22> Subjective - Date & Time of Evaluation Date of Evaluation: 05/17/18 Time of Evaluation: 08:00 - Subjective Subjective: Pt seen and examined this am. Sedated on propofol 7mcg, grimaces to pain. On MV, PRVC FIO2 40%. Rectal tube draining dark green/black stool ~200cc. OG tube. Objective - Vital Signs/Intake and Output Vital Signs (last 24 hours): Temp Pulse Resp BP Pulse Ox 98 F 63 15 104/55 L 99 05/17/18 04:00 05/17/18 06:00 05/17/18 06:00 05/17/18 06:00 05/17/18 06:00 Intake and Output: 05/17/18 05/17/18 06:59 18:59 Intake Total 789 Output Total 550 Balance 239 - Medications Medications: Current Medications Acetaminophen (Tylenol 650 Mg Supp) 650 mg MO Q6 PRN PRN Reason: Fever >100.4 F Acetaminophen (Tylenol 650mg/20.3ml Solution Ud) 650 mg PO Q6 PRN PRN Reason: Fever Last Admin: 05/15/18 00:18 Dose: 650 mg Vancomycin HCl 1 gm/ Sodium (Chloride) 250 mls @ 166.667 mls/hr IVPB Q12H JANNIE; Protocol Last Admin: 05/17/18 00:11 Dose: 166.667 mls/hr Piperacillin Sod/Tazobactam (Sod 3.375 gm/ Sodium Chloride) 100 mls @ 100 mls/hr IVPB Q6 JANNIE; Protocol Last Admin: 05/17/18 03:08 Dose: 100 mls/hr Propofol (Diprivan) 1,000 mg in 100 mls @ 9.525 mls/hr IV .[id number] JANNIE; Protocol Stop: 05/18/18 05:31 Last Admin: 05/17/18 06:27 Dose: 20 mcg/kg/min, 9.525 mls/hr Lactulose (Enulose) 20 gm NG DAILY JANNIE Last Admin: 05/16/18 08:33 Dose: 20 gm Lorazepam (Ativan) 2 mg IVP Q4 PRN PRN Reason: Agitation Last Admin: 05/17/18 03:08 Dose: 2 mg Ondansetron HCl (Zofran Inj) 4 mg IVP Q6 PRN PRN Reason: Nausea/Vomiting Pantoprazole Sodium (Protonix Inj) 40 mg IVP Q12 [facility] Last Admin: 05/16/18 22:03 Dose: 40 mg Thiamine HCl (Vitamin B1 Tab) 100 mg PO DAILY [facility] Last Admin: 05/16/18 12:58 Dose: 100 mg - Labs Labs: 05/17/18 04:20 05/17/18 04:20 PT 16.1 Seconds (9.8-13.1) H 05/12/18 21:35 INR 1.4 05/12/18 21:35 APTT 34.6 Seconds (25.6-37.1) 05/15/18 04:42 - Constitutional Appears: No Acute Distress, Chronically Ill - ENT Exam ENT Exam: Mucous Membranes Moist Additional comments: OT and OG Tube,yellow-opaque secretions - Neck Exam Neck Exam: Full ROM - Respiratory Exam Respiratory Exam: Decreased Breath Sounds, Clear to Ausculation Bilateral. absent: Accessory Muscle Use, Rales, Wheezes - Cardiovascular Exam Cardiovascular Exam: REGULAR RHYTHM, +S1, +S2 - GI/Abdominal Exam GI & Abdominal Exam: Distended, Soft, Normal Bowel Sounds. absent: Tenderness - Neurological Exam Neurological Exam: absent: Alert - Psychiatric Exam Psychiatric exam: absent: Agitated - Skin Skin Exam: Normal Color Assessment and Plan - Assessment and Plan (Free Text) Assessment: 54 y/o man w/ pmh of ETOH abuse, unwitnessed seizures, cirrhosis (s/p TIPS), hepatic encephalopathy admitted for GI bleed, anemia, sepsis and pneumonia. Intubated on 05/13 for protection of airways, currently sedated. Plan: Respiratory Failure, impending -Intubated prophylactically 05/13 given poor mental status and labored breathing -Currently on MV, setting as ordered. Consider weaning sedation and breathing trials. Pt may tolerate extubation today. Sepsis - resolving -no longer meets sepsis criteria -afebrile for 24 hours -lactate 0.9 -Bcx: gram positive cocci (prelim reading) -Ucx: gram + cocci (pending final read) -c/w IV fluids -monitor vitals -Tylenol PRN fever -Cont IV ABx Acute GI bleed, resolved -Hematemesis on admission, no new episodes -Hb 8.1 today -s/p 4 units of PRBC order given acute bleeding -Last Endoscopy 04/2018: normal esophagus, multiple non-bleeding erosions found in the stomach, normal duodenum (Dr. Swartz) -Zofran PRN -GI consulted- no plan for scope. Tranfuse prn. C/W PPI drip -f/u CBC B/L Pneumonia -CT chest sig for Bilateral basilar multi-focal bronchopneumonia -HCAP vs aspiration pneumonia given ETOH abuse -c/w Vanc 1 gm IV Q12h day 3 -c/w Zosyn 3.375 gm IV Q6h day 3 UTI -Ucx: gram + cocci (pending final read) -c/w rocephin 1 gm IV daily day 3 Normocytic Anemia -acute on chronic -Acute GI bleed -s/p transfuse 4 units of PRBC -follow up CBC -anticipate additional PRBC units Hyperammonemia - resolved -Ammonia level 27 -Patient responsive to painful stimuli -Lactulose 20 gm po daily Electrolyte derangements -Hypomagnesemia-Mg 1.6 today, repleted with 1gm MgSo4 -Hypokalemia- 3.4 today, repleted with 40mg pf PO KCl -F/U BMP and Mag Liver Cirrhosis -chronic, 2/2 to ETOH abuse -MELD's Score 13 -Zosyn covers for SBP Pancytopenia -chronic -likely 2/2 to ETOH abuse and cirrhosis -WBC 2.6, H 8.3, platelets 66 Alcohol Abuse -chronic -ETOH <10 -CIWA 7 on admission -c/w CIWA protocol -Ativan 2mg IVP PRN ETOH withdrawal -Monitor for signs of DT Seizure Disorder -chronic, unwitnessed -hold Keppra now since pt is on propofol -Seizure precautions DVT prophylaxis -Lovenox discontinued given low platelets -c/w SCD for now <Sandra Lei - Last Filed: 05/17/18 17:03> Objective - Vital Signs/Intake and Output Vital Signs (last 24 hours): Temp Pulse Resp BP Pulse Ox 98.6 F 91 H 21 127/57 L 96 05/17/18 16:00 05/17/18 16:00 05/17/18 16:00 05/17/18 16:00 05/17/18 16:00 Intake and Output: 05/17/18 05/17/18 06:59 18:59 Intake Total 789 1775 Output Total 550 Balance 239 1775 - Medications Medications: Current Medications Acetaminophen (Tylenol 650 Mg Supp) 650 mg MO Q6 PRN PRN Reason: Fever >100.4 F Acetaminophen (Tylenol 650mg/20.3ml Solution Ud) 650 mg PO Q6 PRN PRN Reason: Fever Last Admin: 05/15/18 00:18 Dose: 650 mg Chlordiazepoxide (Librium) 25 mg PO Q8 JANNIE Last Admin: 05/17/18 16:04 Dose: 25 mg Piperacillin Sod/Tazobactam (Sod 3.375 gm/ Sodium Chloride) 100 mls @ 100 mls/hr IVPB Q6 JANNIE; Protocol Last Admin: 05/17/18 16:02 Dose: 100 mls/hr Linezolid (Zyvox 600mg/300ml D5w) 600 mg in 300 mls @ 300 mls/hr IVPB Q12 JANNIE; Protocol Last Admin: 05/17/18 16:02 Dose: 300 mls/hr Lactulose (Enulose) 20 gm NG DAILY [facility] Last Admin: 05/17/18 08:58 Dose: 20 gm Lorazepam (Ativan) 2 mg IVP Q4 PRN PRN Reason: Agitation Last Admin: 05/17/18 15:59 Dose: 2 mg Ondansetron HCl (Zofran Inj) 4 mg IVP Q6 PRN PRN Reason: Nausea/Vomiting Pantoprazole Sodium (Protonix Ec Tab) 40 mg PO BID [facility] Last Admin: 05/17/18 16:00 Dose: 40 mg Thiamine HCl (Vitamin B1 Tab) 100 mg PO DAILY [facility] Last Admin: 05/17/18 09:03 Dose: 100 mg - Labs Labs: 05/17/18 04:20 05/17/18 04:20 PT 16.1 Seconds (9.8-13.1) H 05/12/18 21:35 INR 1.4 05/12/18 21:35 APTT 34.6 Seconds (25.6-37.1) 05/15/18 04:42 Attending/Attestation - Attestation I have personally seen and examined this patient.: Yes I have fully participated in the care of the patient.: Yes I have reviewed all pertinent clinical information, including history, physical exam and plan: Yes Notes (Text): Sepsis sec to VRE Bacteremia , UTI and Pneumonia ( POA) Respiratory Failure with Hypoxemia due to Pneumonia Acute Blood Loss Anemia due to Upper GI Bleed Alcoholic Cirrhosis - cont IV Zosyn, d/c Vanco, start IV Zyvox, ID consulted - discussed case with Dr Hernandez - cont PPI - H/H now stable post transfusion - GI consulted
[2018-05-17] MEDS ORDERED: Magnesium Sulfate 1 gm in D5W 1 GM/100 ML BAG IVPB ONE (08:10)
[2018-05-17] MEDS ORDERED: Potassium Chloride 20 mEq/15 ml LIQ UD PO ONE (08:30)
--- NOTE | 2018-05-17 09:14 | RAD ---
Date of service: 05/17/2018 HISTORY: intubated COMPARISON: 05/16/2018 FINDINGS: LUNGS: No active pulmonary disease. PLEURA: No significant pleural effusion identified, no pneumothorax apparent. CARDIOVASCULAR: No aortic atherosclerotic calcification present. Normal cardiac size. No congestive change. ET tube and NG tube unchanged. OSSEOUS STRUCTURES: No significant abnormalities. VISUALIZED UPPER ABDOMEN: Normal. OTHER FINDINGS: None. IMPRESSION: No active disease.
--- NOTE | 2018-05-17 11:54 | CP.PCM.PN ---
Subjective - Date & Time of Evaluation Date of Evaluation: 05/17/18 Time of Evaluation: 11:51 - Subjective Subjective: GI Progress Note- Dr. Swartz Patient seen and examined at bedside. Rectal tube in place. No blood in stool. on PTX. Hgb stable. Vent wean for extubation today. RAAS -2, following commands. Objective - Vital Signs/Intake and Output Vital Signs (last 24 hours): Temp Pulse Resp BP Pulse Ox 96.7 F L 86 14 117/58 L 97 05/17/18 08:00 05/17/18 11:00 05/17/18 11:00 05/17/18 11:00 05/17/18 11:00 Intake and Output: 05/17/18 05/17/18 06:59 18:59 Intake Total 789 425 Output Total 550 Balance 239 425 - Medications Medications: Current Medications Acetaminophen (Tylenol 650 Mg Supp) 650 mg [place] Q6 PRN PRN Reason: Fever >100.4 F Acetaminophen (Tylenol 650mg/20.3ml Solution Ud) 650 mg PO Q6 PRN PRN Reason: Fever Last Admin: 05/15/18 00:18 Dose: 650 mg Chlordiazepoxide (Librium) 25 mg PO Q8 [facility] Last Admin: 05/17/18 11:31 Dose: 25 mg Vancomycin HCl 1 gm/ Sodium (Chloride) 250 mls @ 166.667 mls/hr IVPB Q12H [facility]; Protocol Last Admin: 05/17/18 00:11 Dose: 166.667 mls/hr Piperacillin Sod/Tazobactam (Sod 3.375 gm/ Sodium Chloride) 100 mls @ 100 mls/h r IVPB Q6 [facility]; Protocol Last Admin: 05/17/18 09:03 Dose: 100 mls/hr Lactulose (Enulose) 20 gm NG DAILY [facility] Last Admin: 05/17/18 08:58 Dose: 20 gm Lorazepam (Ativan) 2 mg IVP Q4 PRN PRN Reason: Agitation Last Admin: 05/17/18 11:24 Dose: 2 mg Ondansetron HCl (Zofran Inj) 4 mg IVP Q6 PRN PRN Reason: Nausea/Vomiting Pantoprazole Sodium (Protonix Ec Tab) 40 mg PO BID [facility] Thiamine HCl (Vitamin B1 Tab) 100 mg PO DAILY [facility] Last Admin: 05/17/18 09:03 Dose: 100 mg - Labs Labs: 05/17/18 04:20 05/17/18 04:20 PT 16.1 Seconds (9.8-13.1) H 05/12/18 21:35 INR 1.4 05/12/18 21:35 APTT 34.6 Seconds (25.6-37.1) 05/15/18 04:42 - Constitutional Appears: Non-toxic, No Acute Distress, Chronically Ill - Head Exam Head Exam: ATRAUMATIC - Eye Exam Eye Exam: EOMI - ENT Exam ENT Exam: Mucous Membranes Moist - Respiratory Exam Respiratory Exam: NORMAL BREATHING PATTERN. absent: Accessory Muscle Use, Respiratory Distress Additional comments: Intubated on PRVC, sedation weaned down for attempt for extubation - Cardiovascular Exam Cardiovascular Exam: +S1, +S2. absent: Bradycardia, Tachycardia - GI/Abdominal Exam GI & Abdominal Exam: Soft. absent: Distended, Firm, Guarding, Rigid, Tenderness - Neurological Exam Neurological Exam: Alert, Awake Additional comments: RAAS -2 - Skin Skin Exam: Warm Assessment and Plan - Assessment and Plan (Free Text) Assessment: 53M w/ GI bleed; resolved, Hgb stable Plan: - no signs of GI bleed at this time - further management per ICU and Primary team - d/w Dr. Sheridan Ordoñez PGY2
[2018-05-17] MEDS ORDERED: Linezolid 600 mg in D5W 300 ml 600 MG/300 ML BAG IVPB SCH (12:45)
[2018-05-17] MEDS: Pantoprazole 40 mg EC Tab PO SCH (16:00)
--- NOTE | 2018-05-17 16:10 | CP.CCUPN ---
CCU Subjective - Physician Review Subjective (Free Text): 05/17/18 15:59 The patient was Seen and examined by me at the bedside during ICU round, Medical records reviewed and Management issues were discussed and formulated with the house staff. Events reviewed 53 Years old Male with PMHx of HTN, Pancreatitis, Pneumonia, alcohol abuse, alcoholic cirrhosis S/P Tips, Gastritis, esophageal varices, Anemia, Anxiety, herniated disc, Deep Vein Thrombosis, Fractures, Gall Bladder Disease (Cholelithiasis), Seizures and Chronic Pain (left shoulder) Who was admitted to ICU due to acute GI bleeding, hypotension, sepsis from pneumonia, Now intubated for hypoxemic respiratory failure Pt with hx multiple admissions due to GI bleeding and Alcohol related commodities, he had a recent EJD. This morning, he remains orally intubated Tolerating NG tube feeding with Jevity 1.2 Clinically improving, No Vasopressors S/P total of 4U, H/H improved and stable, Will switch Protonix drip to IV to PO All sedations discontinued and he is more awake, intermittently follows commands Patient placed on CPAP trail around 10AM, tolerating so far. Labs, CXR, ABG reviewed, Weaning off Fio2 down to 40% now This morning labs revealed no Leucocytosis, Stable renal function BUN/Cr 10/0.6 Urine C/S 05/12 Gram positive cocci Blood C/S 05/14 Gram positive cocci, VRE Vanco switched to Zyvox Will continue IV Piperacillin Sod/Tazobactam, but discontinue Ceftriaxone Central line discontinued and PIV inserted CXR: IMPRESSION: Endotracheal tube advanced to terminate 4.8 cm above the maranda. Nasogastric tube advanced further into the left upper quadrant abdomen. Limited patchy atelectasis or infiltrate right base, diminished at the left. Borderline diffuse interstitial changes bilaterally. Critical Care Time Spent (in minutes): 34 CCU Objective - Vital Signs / Intake & Output Vital Signs (Last 4 hours): Vital Signs Temp Pulse Resp BP Pulse Ox 05/17/18 15:00 72 16 124/70 100 05/17/18 14:00 73 12 167/97 H 99 05/17/18 13:00 76 12 166/104 H 99 05/17/18 12:00 98.2 F 72 16 114/66 100 Intake and Output (Last 8hrs): Intake & Output 05/17/18 05/17/18 05/17/18 06:59 14:59 22:59 Intake Total 450 425 950 Output Total 550 Balance -100 425 950 Intake: IV 75 140 Intake, Piggyback 450 200 Tube Feeding 660 Free Water Flush 150 150 Output: Urine 550 Urethral (Ty) 550 - Physical Exam Head: Positive for: Atraumatic, Normocephalic Pupils: Positive for: PERRL Mouth: Positive for: Dry Nose (External): Positive for: Atraumatic Neck: Positive for: Normal Range of Motion. Negative for: Meningeal Signs, Lymphadenopathy Respiratory/Chest: Positive for: Rhonchi (bilateral lower lobes) Cardiovascular: Positive for: Normal S1, S2. Negative for: Tachycardic Abdomen: Positive for: Normal Bowel Sounds. Negative for: Tenderness, Guarding Upper Extremity: Positive for: Normal Inspection Lower Extremity: Positive for: Normal Inspection Neurological: Positive for: Other (on ventilator) - Medications Active Medications: Active Medications Generic Name Dose Route Start Last Admin Trade Name Freq PRN Reason Stop Dose Admin Acetaminophen 650 mg 05/13/18 03:32 Tylenol 650 Mg Supp PA Q6 PRN Fever >100.4 F Acetaminophen 650 mg 05/14/18 23:41 05/15/18 00:18 Tylenol 650mg/20.3ml Solution Ud PO 650 mg Q6 PRN Administration Fever Chlordiazepoxide 25 mg 05/17/18 11:15 05/17/18 11:31 Librium PO 25 mg Q8 JANNIE Administration Piperacillin Sod/Tazobactam 100 mls @ 100 mls/hr 05/13/18 09:30 05/17/18 09:03 Sod 3.375 gm/ Sodium Chloride IVPB 100 mls/hr Q6 JANNIE Administration Protocol Linezolid 600 mg in 300 mls @ 300 mls/hr 05/17/18 12:45 Zyvox 600mg/300ml D5w IVPB Q12 JANNIE Protocol Lactulose 20 gm 05/16/18 09:00 05/17/18 08:58 Enulose NG 20 gm DAILY JANNIE Administration Lorazepam 2 mg 05/15/18 08:35 05/17/18 11:24 Ativan IVP 2 mg Q4 PRN Administration Agitation Ondansetron HCl 4 mg 05/13/18 03:35 Zofran Inj IVP Q6 PRN Nausea/Vomiting Pantoprazole Sodium 40 mg 05/17/18 17:00 Protonix Ec Tab PO BID JANNIE Thiamine HCl 100 mg 05/16/18 11:00 05/17/18 09:03 Vitamin B1 Tab PO 100 mg DAILY JANNIE Administration - Patient Studies Lab Studies: Microbiology Studies 05/14/18 09:00 Gram Stain - Final Trachasp Sputum Culture - Final NORMAL ORAL HANNAH 05/14/18 20:00 Blood Culture - Final Blood-Thru Central Line Vancomycin Resistant E.faecium Gram Stain - Final 05/14/18 20:00 S.aureus & Coag-Neg Staph PNA FISH - Final Blood-Thru Central Line Blood Culture - Preliminary Vancomycin Resistant E.faecium Gram Stain - Final 05/12/18 21:25 Blood Culture - Preliminary Blood NO GROWTH AFTER 4 DAYS 05/12/18 21:15 Blood Culture - Preliminary Blood NO GROWTH AFTER 4 DAYS 05/14/18 00:53 Urine Culture - Final Urine,Catheterized No Growth (<1,000 CFU/ML) Lab Studies 05/17/18 05/17/18 05/17/18 Range/Units 04:32 04:20 04:20 WBC 2.6 L (4.8-10.8) K/uL RBC 2.92 L (4.40-5.90) Mil/uL Hgb 8.3 L (12.0-18.0) g/dL Hct 25.6 L (35.0-51.0) % MCV 87.8 (80.0-94.0) fl MCH 28.3 (27.0-31.0) pg MCHC 32.2 L (33.0-37.0) g/dL RDW 18.8 H (11.5-14.5) % Plt Count 66 L (130-400) K/uL MPV 7.7 (7.2-11.7) fl Neut % (Auto) 59.2 (50.0-75.0) % Lymph % (Auto) 21.7 (20.0-40.0) % [place] % (Auto) 12.6 H (0.0-10.0) % Eos % (Auto) 5.7 H (0.0-4.0) % Baso % (Auto) 0.8 (0.0-2.0) % Neut # (Auto) 1.5 L (1.8-7.0) K/uL Lymph # (Auto) 0.6 L (1.0-4.3) K/uL [place] # (Auto) 0.3 (0.0-0.8) K/uL Eos # (Auto) 0.1 (0.0-0.7) K/uL Baso # (Auto) 0.0 (0.0-0.2) K/uL pCO2 31 L (35-45) mm/Hg pO2 118 H (80-100) mm/Hg HCO3 23.7 (21-28) mmol/L ABG pH 7.45 (7.35-7.45) ABG Total CO2 22.5 (22-28) mmol/L ABG O2 Saturation 100.5 H (95-98) % ABG Base Excess -1.6 (-2.0-3.0) mmol/L Jose Test Yes ABG Potassium 3.2 L (3.6-5.2) mmol/L A-a O2 Difference 128.0 mm/Hg Glucose 102 (75-110) mg/dL Lactate 1.1 (0.7-2.1) mmol/L Vent Mode A/c Mechanical Rate 12 FiO2 40.0 % Tidal Volume 450 PEEP 5 Sodium 139.0 141 (132-148) mmol/l Potassium 3.4 L (3.6-5.0) MMOL/L Chloride 115.0 H 114 H (98-107) mmol/L Carbon Dioxide 20 L (22-30) mmol/L Anion Gap 10 (10-20) BUN 10 (9-20) mg/dl Creatinine 0.5 L (0.8-1.5) mg/dl Est GFR ( Amer) > 60 Est GFR (Non-Af Amer) > 60 Random Glucose 104 (75-110) mg/dL Calcium 7.0 L (8.4-10.2) mg/dL Phosphorus (2.5-4.5) mg/dl Magnesium 1.6 (1.6-2.3) MG/DL Total Bilirubin (0.2-1.3) mg/dl AST (17-59) U/L ALT (21-72) U/L Alkaline Phosphatase (38-126) U/L Total Protein (6.3-8.2) G/DL Albumin (3.5-5.0) g/dL Globulin (2.2-3.9) gm/dL Albumin/Globulin Ratio (1.0-2.1) Arterial Blood Potassium 3.2 L (3.6-5.2) mmol/L 05/16/18 05/16/18 Range/Units 16:45 16:45 WBC 3.0 L (4.8-10.8) K/uL RBC 2.92 L (4.40-5.90) Mil/uL Hgb 8.2 L (12.0-18.0) g/dL Hct 25.6 L (35.0-51.0) % MCV 87.5 (80.0-94.0) fl MCH 28.2 (27.0-31.0) pg MCHC 32.3 L (33.0-37.0) g/dL RDW 18.5 H (11.5-14.5) % Plt Count 67 L (130-400) K/uL MPV (7.2-11.7) fl Neut % (Auto) (50.0-75.0) % Lymph % (Auto) (20.0-40.0) % [place] % (Auto) (0.0-10.0) % Eos % (Auto) (0.0-4.0) % Baso % (Auto) (0.0-2.0) % Neut # (Auto) (1.8-7.0) K/uL Lymph # (Auto) (1.0-4.3) K/uL [place] # (Auto) (0.0-0.8) K/uL Eos # (Auto) (0.0-0.7) K/uL Baso # (Auto) (0.0-0.2) K/uL pCO2 (35-45) mm/Hg pO2 (80-100) mm/Hg HCO3 (21-28) mmol/L ABG pH (7.35-7.45) ABG Total CO2 (22-28) mmol/L ABG O2 Saturation (95-98) % ABG Base Excess (-2.0-3.0) mmol/L Jose Test ABG Potassium (3.6-5.2) mmol/L A-a O2 Difference mm/Hg Glucose (75-110) mg/dL Lactate (0.7-2.1) mmol/L Vent Mode Mechanical Rate FiO2 % Tidal Volume PEEP Sodium 141 (132-148) mmol/l Potassium 3.6 (3.6-5.0) MMOL/L Chloride 116 H (98-107) mmol/L Carbon Dioxide 18 L (22-30) mmol/L Anion Gap 11 (10-20) BUN 9 (9-20) mg/dl Creatinine 0.6 L (0.8-1.5) mg/dl Est GFR ( Amer) > 60 Est GFR (Non-Af Amer) > 60 Random Glucose 92 (75-110) mg/dL Calcium 7.0 L (8.4-10.2) mg/dL Phosphorus 3.2 (2.5-4.5) mg/dl Magnesium 1.7 (1.6-2.3) MG/DL Total Bilirubin 1.5 H (0.2-1.3) mg/dl AST 59 (17-59) U/L ALT 45 (21-72) U/L Alkaline Phosphatase 119 (38-126) U/L Total Protein 5.5 L (6.3-8.2) G/DL Albumin 2.0 L (3.5-5.0) g/dL Globulin 3.6 (2.2-3.9) gm/dL Albumin/Globulin Ratio 0.6 L (1.0-2.1) Arterial Blood Potassium (3.6-5.2) mmol/L Laboratory Results - last 24 hr 05/16/18 05/16/18 05/17/18 16:45 16:45 04:20 WBC 3.0 L 2.6 L RBC 2.92 L 2.92 L Hgb 8.2 L 8.3 L Hct 25.6 L 25.6 L MCV 87.5 87.8 MCH 28.2 28.3 MCHC 32.3 L 32.2 L RDW 18.5 H 18.8 H Plt Count 67 L 66 L MPV 7.7 Neut % (Auto) 59.2 Lymph % (Auto) 21.7 [place] % (Auto) 12.6 H Eos % (Auto) 5.7 H Baso % (Auto) 0.8 Neut # (Auto) 1.5 L Lymph # (Auto) 0.6 L [place] # (Auto) 0.3 Eos # (Auto) 0.1 Baso # (Auto) 0.0 pCO2 pO2 HCO3 ABG pH ABG Total CO2 ABG O2 Saturation ABG Base Excess Jose Test ABG Potassium A-a O2 Difference Glucose Lactate Vent Mode Mechanical Rate FiO2 Tidal Volume PEEP Sodium 141 Potassium 3.6 Chloride 116 H Carbon Dioxide 18 L Anion Gap 11 BUN 9 Creatinine 0.6 L Est GFR ( Amer) > 60 Est GFR (Non-Af Amer) > 60 Random Glucose 92 Calcium 7.0 L Phosphorus 3.2 Magnesium 1.7 Total Bilirubin 1.5 H AST 59 ALT 45 Alkaline Phosphatase 119 Total Protein 5.5 L Albumin 2.0 L Globulin 3.6 Albumin/Globulin Ratio 0.6 L Arterial Blood Potassium 05/17/18 05/17/18 04:20 04:32 WBC RBC Hgb Hct MCV MCH MCHC RDW Plt Count MPV Neut % (Auto) Lymph % (Auto) [place] % (Auto) Eos % (Auto) Baso % (Auto) Neut # (Auto) Lymph # (Auto) [place] # (Auto) Eos # (Auto) Baso # (Auto) pCO2 31 L pO2 118 H HCO3 23.7 ABG pH 7.45 ABG Total CO2 22.5 ABG O2 Saturation 100.5 H ABG Base Excess -1.6 Jose Test Yes ABG Potassium 3.2 L A-a O2 Difference 128.0 Glucose 102 Lactate 1.1 Vent Mode A/c Mechanical Rate 12 FiO2 40.0 Tidal Volume 450 PEEP 5 Sodium 141 139.0 Potassium 3.4 L Chloride 114 H 115.0 H Carbon Dioxide 20 L Anion Gap 10 BUN 10 Creatinine 0.5 L Est GFR ( Amer) > 60 Est GFR (Non-Af Amer) > 60 Random Glucose 104 Calcium 7.0 L Phosphorus Magnesium 1.6 Total Bilirubin AST ALT Alkaline Phosphatase Total Protein Albumin Globulin Albumin/Globulin Ratio Arterial Blood Potassium 3.2 L Fingerstick Blood Sugar Results: 134 Critical Care Progress Note - Nutrition Nutrition: Nutrition Category Date Time Status NPO Diet [DIET] Diets 05/13/18 Breakfast Active Assessment/Plan (1) Acute upper GI hemorrhage Current Visit: Yes Status: Acute Priority: High Comment: Transfuse 4U packed RBC Serial CBCs q 12 /HR IV Hydration Switch PANTOPRAZOLE IV BID to PO (2) Acute respiratory failure Current Visit: Yes Status: Acute Priority: High Comment: Continue IV Vancomycin and Piperacillin Sod/Tazobactam PRN Diuresis Strict I&O, Even fluid balance Aggressive pulmonary toilet, chest PT, suctioning Vent weaning in progress Daily CAT/SB (3) Cirrhosis of liver Current Visit: Yes Status: Acute Priority: High Comment: S/P TIPS Continue with IV PPI infusion (4) Pneumonia Current Visit: Yes Status: Acute Priority: High Comment: Continue IV Vancomycin and Piperacillin Sod/Tazobactam (5) Bacteremia Current Visit: Yes Status: Acute Priority: High Comment: IV Zyvox 600mg BID and Piperacillin Sod/Tazobactam Repeat Blood C/S, if remains positive will consider ID consult Central line Discontinue ECHO to R/O endocarditis (6) UTI (urinary tract infection) Current Visit: Yes Status: Acute Priority: High (7) Acute blood loss anemia Current Visit: Yes Status: Acute Priority: High
[2018-05-17] MEDS: levETIRAcetam 500 MG in Sodium Chloride 0.9% 100 ML IVPB SCH (20:28)
[2018-05-17] MEDS ORDERED: Propofol 10 mg/ml 1,000 MG/100 ML VIAL ONE (22:39)
[2018-05-18] MEDS: Linezolid 600 mg in D5W 300 ml 600 MG/300 ML BAG IVPB SCH ×2 (03:04→16:21)
[2018-05-18] MEDS: Piperacillin/Tazobact 3.375 GM in Sodium Chloride 0.9% 100 ML IVPB SCH ×4 (03:05→21:35)
[2018-05-18 04:09] LABS: ABG ALLEN TEST YES; ARTERIAL BLOOD GAS HCO3 24.2 mmol/L (21-28); ARTERIAL BLOOD GAS O2 SAT 100.7 % (95-98); ARTERIAL BLOOD GAS PCO2 31 mm/Hg (35-45); ARTERIAL BLOOD GAS PH 7.46 (7.35-7.45); ARTERIAL BLOOD GAS PO2 101 mm/Hg (80-100)
[2018-05-18 05:19] LABS: BASO % 1.4 % (0.0-2.0); EOS # 0.2 K/uL (0.0-0.7); HEMOGLOBIN 8.4 g/dL (12.0-18.0); LYMPH # 0.5 K/uL (1.0-4.3); LYMPH % 18.1 % (20.0-40.0); MEAN CORPUSCULAR HEMOGLOBIN 28.2 pg (27.0-31.0); MEAN CORPUSCULAR HGB CONC 32.4 g/dL (33.0-37.0); MEAN PLATELET VOLUME 7.3 fl (7.2-11.7); MONO # 0.4 K/uL (0.0-0.8); MONO % 11.7 % (0.0-10.0); NEUT # 1.9 K/uL (1.8-7.0); NEUT % 63.8 % (50.0-75.0); RBC 2.97 Mil/uL (4.40-5.90); RED CELL DISTRIBUTION WIDTH 18.8 % (11.5-14.5)
[2018-05-18 05:28] LABS: BLOOD UREA NITROGEN 8 mg/dl (9-20); CALCIUM 7.1 mg/dL (8.4-10.2); GFR NON-AFRICAN AMERICAN > 60
[2018-05-18] MEDS ORDERED: Potassium Chloride 20 mEq ER Tab PO ONE (08:04)
--- NOTE | 2018-05-18 08:07 | CP.PCM.PN ---
<Josselyn Lucas - Last Filed: 05/18/18 15:04> Subjective - Date & Time of Evaluation Date of Evaluation: 05/18/18 Time of Evaluation: 08:00 - Subjective Subjective: Pt seen and examined this morning. On CPAP overnight, extubated this morning after successful breathing trials. Alert, asking for food. Objective - Vital Signs/Intake and Output Vital Signs (last 24 hours): Temp Pulse Resp BP Pulse Ox 97.5 F L 81 13 114/59 L 99 05/18/18 08:00 05/18/18 08:00 05/18/18 08:00 05/18/18 08:00 05/18/18 08:00 Intake and Output: 05/18/18 05/18/18 06:59 18:59 Intake Total 1050 150 Output Total 1000 Balance 50 150 - Medications Medications: Current Medications Acetaminophen (Tylenol 650 Mg Supp) 650 mg MS Q6 PRN PRN Reason: Fever >100.4 F Acetaminophen (Tylenol 650mg/20.3ml Solution Ud) 650 mg PO Q6 PRN PRN Reason: Fever Last Admin: 05/15/18 00:18 Dose: 650 mg Chlordiazepoxide (Librium) 25 mg PO Q8 JANNIE Last Admin: 05/18/18 00:28 Dose: 25 mg Piperacillin Sod/Tazobactam (Sod 3.375 gm/ Sodium Chloride) 100 mls @ 100 mls/hr IVPB Q6 JANNIE; Protocol Last Admin: 05/18/18 03:05 Dose: 100 mls/hr Levetiracetam 500 mg/ Sodium (Chloride) 105 mls @ 210 mls/hr IVPB Q12 JANNIE Last Admin: 05/17/18 20:28 Dose: 210 mls/hr Linezolid (Zyvox 600mg/300ml D5w) 600 mg in 300 mls @ 300 mls/hr IVPB Q12H JANNIE; Protocol Last Admin: 05/18/18 03:04 Dose: 300 mls/hr Propofol (Diprivan) 1,000 mg in 100 mls @ 2.381 mls/hr IV .Q24H JANNIE; Protocol Stop: 05/18/18 22:41 Last Admin: 05/17/18 23:19 Dose: 5 mcg/kg/min, 2.381 mls/hr Magnesium Sulfate (Magnesium Sulfate 2 Gm/50 Ml Water) 2 gm in 50 mls @ 50 mls/hr IVPB ONCE ONE Stop: 05/18/18 09:14 Lactulose (Enulose) 20 gm NG DAILY [facility] Last Admin: 05/17/18 08:58 Dose: 20 gm Lorazepam (Ativan) 2 mg IVP Q4 PRN PRN Reason: Agitation Last Admin: 05/18/18 03:06 Dose: 2 mg Ondansetron HCl (Zofran Inj) 4 mg IVP Q6 PRN PRN Reason: Nausea/Vomiting Pantoprazole Sodium (Protonix Ec Tab) 40 mg PO BID [facility] Last Admin: 05/17/18 16:00 Dose: 40 mg Potassium Chloride (K-Dur 20 Meq Er Tab) 40 meq PO ONCE ONE Stop: 05/18/18 08:05 Thiamine HCl (Vitamin B1 Tab) 100 mg PO DAILY [facility] Last Admin: 05/17/18 09:03 Dose: 100 mg - Labs Labs: 05/18/18 04:50 05/18/18 04:50 PT 16.1 Seconds (9.8-13.1) H 05/12/18 21:35 INR 1.4 05/12/18 21:35 APTT 34.6 Seconds (25.6-37.1) 05/15/18 04:42 - Constitutional Appears: Non-toxic, No Acute Distress - Head Exam Head Exam: NORMAL INSPECTION - Eye Exam Eye Exam: Normal appearance - ENT Exam ENT Exam: Mucous Membranes Moist - Respiratory Exam Respiratory Exam: Clear to Ausculation Bilateral, Rales (scattered). absent: Wheezes - Cardiovascular Exam Cardiovascular Exam: REGULAR RHYTHM, +S1, +S2. absent: Murmur - GI/Abdominal Exam GI & Abdominal Exam: Soft, Normal Bowel Sounds. absent: Tenderness - Extremities Exam Extremities Exam: Calf Tenderness, Normal Capillary Refill. absent: Pedal Edema - Neurological Exam Neurological Exam: Alert, Awake - Psychiatric Exam Psychiatric exam: Flat Affect, Normal Affect - Skin Skin Exam: Normal Color Assessment and Plan - Assessment and Plan (Free Text) Assessment: 54 y/o man w/ pmh of ETOH abuse, unwitnessed seizures, cirrhosis (s/p TIPS), hepatic encephalopathy admitted for GI bleed, anemia, sepsis and pneumonia. Intubated on CPAP overnight. Extubated today. Plan: Respiratory Failure,resolved Extubated successfuly, no signs of respiratory distress Bacteremia -no longer meets sepsis criteria -afebrile for 24 hours -lactate 0.9 -Bcx (05/14)x2: Vancomycin Resistant E. Faecium -Bcx (05/17)x2: No growth in 24hrs -Ucx (05/12): gram + cocci (pending final read) -Lung CT: Bilateral multifocal pnu -Unknown source, may be UTI vs PNU -Echo ordered -Tylenol PRN fever -Linezolid started as per ID, Dr. Hernandez. Watch for agranulocytosis given pt's pancytopenia Acute GI bleed, resolved -Hematemesis on admission, no new episodes -Hb 8.4 today -s/p 4 units of PRBC order given acute bleeding -Last Endoscopy 04/2018: normal esophagus, multiple non-bleeding erosions found in the stomach, normal duodenum (Dr. Swartz) -Zofran PRN -GI consulted- no plan for scope. Tranfuse prn. C/W PPI drip -f/u CBC Hyperammonemia - resolved -Ammonia level 27 -Lactulose 20 gm po daily Electrolyte derangements -Hypomagnesemia-Mg 1.5 today, repleted with 1gm MgSo4 -Hypokalemia- 3.2 today, repleted with 40mg of PO KCl -F/U BMP and Mag Liver Cirrhosis -chronic, 2/2 to ETOH abuse -MELD's Score 13 -Zosyn covers for SBP Pancytopenia -chronic -likely 2/2 to ETOH abuse and cirrhosis -WBC 2.6, H 8.3, platelets 66 Alcohol Abuse -chronic -ETOH <10 -CIWA 7 on admission -c/w CIWA protocol -Ativan 2mg IVP PRN ETOH withdrawal -Monitor for signs of DT Seizure Disorder -chronic, unwitnessed -hold Keppra now since pt is on propofol -Seizure precautions Diet -restart diet pending swallow eval DVT prophylaxis -Lovenox discontinued given low platelets -c/w SCD for now <Sandra Lei - Last Filed: 05/18/18 18:46> Objective - Vital Signs/Intake and Output Vital Signs (last 24 hours): Temp Pulse Resp BP Pulse Ox 98.1 F 67 15 132/72 98 05/18/18 16:00 05/18/18 18:00 05/18/18 18:00 05/18/18 18:00 05/18/18 18:00 Intake and Output: 05/18/18 05/18/18 06:59 18:59 Intake Total 1050 1089 Output Total 1000 1100 Balance 50 -11 - Medications Medications: Current Medications Acetaminophen (Tylenol 650 Mg Supp) 650 mg MS Q6 PRN PRN Reason: Fever >100.4 F Acetaminophen (Tylenol 650mg/20.3ml Solution Ud) 650 mg PO Q6 PRN PRN Reason: Fever Last Admin: 05/15/18 00:18 Dose: 650 mg Chlordiazepoxide (Librium) 25 mg PO Q8 JANNIE Last Admin: 05/18/18 16:19 Dose: Not Given Levetiracetam 500 mg/ Sodium (Chloride) 105 mls @ 210 mls/hr IVPB Q12 JANNIE Last Admin: 05/18/18 09:01 Dose: 210 mls/hr Linezolid (Zyvox 600mg/300ml D5w) 600 mg in 300 mls @ 300 mls/hr IVPB Q12H JANNIE; Protocol Last Admin: 05/18/18 16:21 Dose: 300 mls/hr Piperacillin Sod/Tazobactam (Sod 3.375 gm/ Sodium Chloride) 100 mls @ 100 mls /hr IVPB Q6 JANNIE; Protocol Lactulose (Enulose) 20 gm NG DAILY [facility] Last Admin: 05/18/18 09:01 Dose: 20 gm Lorazepam (Ativan) 2 mg IVP Q4 PRN PRN Reason: Agitation Last Admin: 05/18/18 15:05 Dose: 2 mg Ondansetron HCl (Zofran Inj) 4 mg IVP Q6 PRN PRN Reason: Nausea/Vomiting Pantoprazole Sodium (Protonix Ec Tab) 40 mg PO BID [facility] Last Admin: 05/18/18 16:19 Dose: Not Given Thiamine HCl (Vitamin B1 Tab) 100 mg PO DAILY [facility] Last Admin: 05/18/18 10:04 Dose: 100 mg - Labs Labs: 05/18/18 04:50 05/18/18 04:50 PT 16.1 Seconds (9.8-13.1) H 05/12/18 21:35 INR 1.4 05/12/18 21:35 APTT 34.6 Seconds (25.6-37.1) 05/15/18 04:42 Attending/Attestation - Attestation I have personally seen and examined this patient.: Yes I have fully participated in the care of the patient.: Yes I have reviewed all pertinent clinical information, including history, physical exam and plan: Yes Notes (Text): Sepsis ( POA) with VRE Bacteremia prob due to Pneumonia Respiratory Failure with Hypoxemia due to Pneumonia Alcohol Cirrhosis Alcohol Withdrawal Seizure Dis - pt extubated today - Speech to eval swallow - cont Zyvox and Zosyn - cont Librium, Keppra, Thiamine
[2018-05-18] MEDS ORDERED: Magnesium Sulfate 2 gm/50 ml 2 GM/50 ML BAG IVPB ONE (08:15)
[2018-05-18] MEDS: levETIRAcetam 500 MG in Sodium Chloride 0.9% 100 ML IVPB SCH ×2 (09:01→21:00)
[2018-05-18] MEDS: Pantoprazole 40 mg EC Tab PO SCH ×2 (09:05→16:19)
[2018-05-18 10:04] VITALS: BMI 23.7
--- NOTE | 2018-05-18 11:04 | PCM.PROC ---
Procedures Attestation:: I certify that I have explained the specified Operation(s) or Procedure(s), risks, benefits and reasonable alternatives to the Patient and/or other person responsible. The opportunity was given to ask questions and all questions answered - Extubation Clinical Parameters: Resolution/Stabilization of disease process, Hemodynamically Stable, Intact Cough/Gag Reflex, Spontaneous Respirations, Acceptable Vent Settings (FIO2<50%, PEEP<8, PaO2>75, pH>7.25) Weaning Criteria Met: Yes General Weaning Approaches: Pressure Support Ventilation (PSV) Weaning Patient Condition: Patient has been successfully extubated and assessed Oxygen Therapy: O2 via Venti Mask Patient Tolerated Procedure: Well
--- NOTE | 2018-05-18 11:11 | CP.CCUPN ---
<Vik Stacy - Last Filed: 05/18/18 14:14> CCU Subjective - Physician Review Subjective (Free Text): 05/18/18 09:10 53y/o M was seen and examined by bedside. Pt sleeping, still on sedation, intubated on CPAP since yesterday, orogastric tube in place. Pt afebrile, with NO acute events overnight. CCU Objective - Vital Signs / Intake & Output Vital Signs (Last 4 hours): Vital Signs Temp Pulse Resp BP Pulse Ox 05/18/18 10:00 65 11 L 98/48 L 100 05/18/18 09:00 69 13 114/60 99 05/18/18 08:00 97.5 F L 81 13 114/59 L 99 Intake and Output (Last 8hrs): Intake & Output 05/17/18 05/18/18 05/18/18 22:59 06:59 14:59 Intake Total 1700 700 490 Output Total 600 1000 Balance 1100 -300 490 Intake: IV 140 90 Intake, Piggyback 600 700 250 Tube Feeding 660 150 Free Water Flush 300 Output: Urine 600 700 Urethral (Ty) 600 700 Stool 300 - Physical Exam Head: Positive for: Atraumatic, Normocephalic Pupils: Positive for: PERRL Mouth: Positive for: Dry Nose (External): Positive for: Atraumatic Neck: Positive for: Normal Range of Motion. Negative for: Meningeal Signs, Lymphadenopathy Respiratory/Chest: Positive for: Other (Intubated). Negative for: Wheezes Cardiovascular: Positive for: Normal S1, S2. Negative for: Tachycardic Abdomen: Positive for: Normal Bowel Sounds. Negative for: Tenderness, Guarding Upper Extremity: Positive for: Normal Inspection Lower Extremity: Positive for: Normal Inspection Psychiatric: Negative for: Alert, Oriented x 3 - Medications Active Medications: Active Medications Generic Name Dose Route Start Last Admin Trade Name Freq PRN Reason Stop Dose Admin Acetaminophen 650 mg 05/13/18 03:32 Tylenol 650 Mg Supp DE Q6 PRN Fever >100.4 F Acetaminophen 650 mg 05/14/18 23:41 05/15/18 00:18 Tylenol 650mg/20.3ml Solution Ud PO 650 mg Q6 PRN Administration Fever Chlordiazepoxide 25 mg 05/17/18 11:15 05/18/18 09:03 Librium PO 25 mg Q8 JANNIE Administration Levetiracetam 500 mg/ Sodium 105 mls @ 210 mls/hr 05/17/18 21:00 05/18/18 09:01 Chloride IVPB 210 mls/hr Q12 JANNIE Administration Linezolid 600 mg in 300 mls @ 300 mls/hr 05/18/18 04:00 05/18/18 03:04 Zyvox 600mg/300ml D5w IVPB 300 mls/hr Q12H JANNIE Administration Protocol Lactulose 20 gm 05/16/18 09:00 05/18/18 09:01 Enulose NG 20 gm DAILY JANNIE Administration Lorazepam 2 mg 05/15/18 08:35 05/18/18 08:57 Ativan IVP 2 mg Q4 PRN Administration Agitation Ondansetron HCl 4 mg 05/13/18 03:35 Zofran Inj IVP Q6 PRN Nausea/Vomiting Pantoprazole Sodium 40 mg 05/17/18 17:00 05/18/18 09:05 Protonix Ec Tab PO 40 mg BID JANNIE Administration Thiamine HCl 100 mg 05/16/18 11:00 05/18/18 10:04 Vitamin B1 Tab PO 100 mg DAILY JANNIE Administration - Patient Studies Lab Studies: Microbiology Studies 05/12/18 21:25 Blood Culture - Final Blood NO GROWTH AFTER 5 DAYS Gram Stain - Final TEST NOT PERFORMED 05/12/18 21:15 Blood Culture - Final Blood NO GROWTH AFTER 5 DAYS Gram Stain - Final TEST NOT PERFORMED 05/14/18 09:00 Gram Stain - Final Trachasp Sputum Culture - Final NORMAL ORAL HANNAH 05/14/18 20:00 Blood Culture - Final Blood-Thru Central Line Vancomycin Resistant E.faecium Gram Stain - Final 05/14/18 20:00 S.aureus & Coag-Neg Staph PNA FISH - Final Blood-Thru Central Line Blood Culture - Preliminary Vancomycin Resistant E.faecium Gram Stain - Final Lab Studies 05/18/18 05/18/18 05/18/18 Range/Units 05:00 04:50 04:50 WBC 3.0 L (4.8-10.8) K/uL RBC 2.97 L (4.40-5.90) Mil/uL Hgb 8.4 L (12.0-18.0) g/dL Hct 25.9 L (35.0-51.0) % MCV 87.0 (80.0-94.0) fl MCH 28.2 (27.0-31.0) pg MCHC 32.4 L (33.0-37.0) g/dL RDW 18.8 H (11.5-14.5) % Plt Count 64 L (130-400) K/uL MPV 7.3 (7.2-11.7) fl Neut % (Auto) 63.8 (50.0-75.0) % Lymph % (Auto) 18.1 L (20.0-40.0) % [place] % (Auto) 11.7 H (0.0-10.0) % Eos % (Auto) 5.0 H (0.0-4.0) % Baso % (Auto) 1.4 (0.0-2.0) % Neut # (Auto) 1.9 (1.8-7.0) K/uL Lymph # (Auto) 0.5 L (1.0-4.3) K/uL [place] # (Auto) 0.4 (0.0-0.8) K/uL Eos # (Auto) 0.2 (0.0-0.7) K/uL Baso # (Auto) 0.0 (0.0-0.2) K/uL pCO2 (35-45) mm/Hg pO2 (80-100) mm/Hg HCO3 (21-28) mmol/L ABG pH (7.35-7.45) ABG Total CO2 (22-28) mmol/L ABG O2 Saturation (95-98) % ABG Base Excess (-2.0-3.0) mmol/L Jose Test ABG Potassium (3.6-5.2) mmol/L A-a O2 Difference mm/Hg Sodium 137 (132-148) mmol/L Chloride 113 H (98-107) mmol/L Glucose (75-110) mg/dL Lactate (0.7-2.1) mmol/L Vent Mode FiO2 % Pressure Support CPAP Potassium 3.2 L (3.6-5.0) MMOL/L Carbon Dioxide 22 (22-30) mmol/L Anion Gap 5 L (10-20) BUN 8 L (9-20) mg/dl Creatinine 0.5 L (0.8-1.5) mg/dl Est GFR ( Amer) > 60 Est GFR (Non-Af Amer) > 60 POC Glucose (mg/dL) (65-110) mg/dL Random Glucose 110 (75-110) mg/dL Calcium 7.1 L (8.4-10.2) mg/dL Magnesium 1.5 L (1.6-2.3) MG/DL Arterial Blood Potassium (3.6-5.2) mmol/L Vancomycin Trough < 5.0 L (5.0-10.0) ug/mL 05/18/18 05/17/18 Range/Units 03:56 16:44 WBC (4.8-10.8) K/uL RBC (4.40-5.90) Mil/uL Hgb (12.0-18.0) g/dL Hct (35.0-51.0) % MCV (80.0-94.0) fl MCH (27.0-31.0) pg MCHC (33.0-37.0) g/dL RDW (11.5-14.5) % Plt Count (130-400) K/uL MPV (7.2-11.7) fl Neut % (Auto) (50.0-75.0) % Lymph % (Auto) (20.0-40.0) % [place] % (Auto) (0.0-10.0) % Eos % (Auto) (0.0-4.0) % Baso % (Auto) (0.0-2.0) % Neut # (Auto) (1.8-7.0) K/uL Lymph # (Auto) (1.0-4.3) K/uL [place] # (Auto) (0.0-0.8) K/uL Eos # (Auto) (0.0-0.7) K/uL Baso # (Auto) (0.0-0.2) K/uL pCO2 31 L (35-45) mm/Hg pO2 101 H (80-100) mm/Hg HCO3 24.2 (21-28) mmol/L ABG pH 7.46 H (7.35-7.45) ABG Total CO2 23.0 (22-28) mmol/L ABG O2 Saturation 100.7 H (95-98) % ABG Base Excess -0.9 (-2.0-3.0) mmol/L Jose Test Yes ABG Potassium 2.9 L (3.6-5.2) mmol/L A-a O2 Difference 145.0 mm/Hg Sodium 136.0 (132-148) mmol/L Chloride 110.0 H (98-107) mmol/L Glucose 142 H (75-110) mg/dL Lactate 1.3 (0.7-2.1) mmol/L Vent Mode Cpap FiO2 40.0 % Pressure Support 10 CPAP 5 Potassium (3.6-5.0) MMOL/L Carbon Dioxide (22-30) mmol/L Anion Gap (10-20) BUN (9-20) mg/dl Creatinine (0.8-1.5) mg/dl Est GFR ( Amer) Est GFR (Non-Af Amer) POC Glucose (mg/dL) 96 (65-110) mg/dL Random Glucose (75-110) mg/dL Calcium (8.4-10.2) mg/dL Magnesium (1.6-2.3) MG/DL Arterial Blood Potassium 2.9 L (3.6-5.2) mmol/L Vancomycin Trough (5.0-10.0) ug/mL Laboratory Results - last 24 hr 05/17/18 05/18/18 05/18/18 16:44 03:56 04:50 WBC 3.0 L RBC 2.97 L Hgb 8.4 L Hct 25.9 L MCV 87.0 MCH 28.2 MCHC 32.4 L RDW 18.8 H Plt Count 64 L MPV 7.3 Neut % (Auto) 63.8 Lymph % (Auto) 18.1 L [place] % (Auto) 11.7 H Eos % (Auto) 5.0 H Baso % (Auto) 1.4 Neut # (Auto) 1.9 Lymph # (Auto) 0.5 L [place] # (Auto) 0.4 Eos # (Auto) 0.2 Baso # (Auto) 0.0 pCO2 31 L pO2 101 H HCO3 24.2 ABG pH 7.46 H ABG Total CO2 23.0 ABG O2 Saturation 100.7 H ABG Base Excess -0.9 Jose Test Yes ABG Potassium 2.9 L A-a O2 Difference 145.0 Sodium 136.0 Chloride 110.0 H Glucose 142 H Lactate 1.3 Vent Mode Cpap FiO2 40.0 Pressure Support 10 CPAP 5 Potassium Carbon Dioxide Anion Gap BUN Creatinine Est GFR ( Amer) Est GFR (Non-Af Amer) POC Glucose (mg/dL) 96 Random Glucose Calcium Magnesium Arterial Blood Potassium 2.9 L Vancomycin Trough 05/18/18 05/18/18 04:50 05:00 WBC RBC Hgb Hct MCV MCH MCHC RDW Plt Count MPV Neut % (Auto) Lymph % (Auto) [place] % (Auto) Eos % (Auto) Baso % (Auto) Neut # (Auto) Lymph # (Auto) [place] # (Auto) Eos # (Auto) Baso # (Auto) pCO2 pO2 HCO3 ABG pH ABG Total CO2 ABG O2 Saturation ABG Base Excess Jose Test ABG Potassium A-a O2 Difference Sodium 137 Chloride 113 H Glucose Lactate Vent Mode FiO2 Pressure Support CPAP Potassium 3.2 L Carbon Dioxide 22 Anion Gap 5 L BUN 8 L Creatinine 0.5 L Est GFR ( Amer) > 60 Est GFR (Non-Af Amer) > 60 POC Glucose (mg/dL) Random Glucose 110 Calcium 7.1 L Magnesium 1.5 L Arterial Blood Potassium Vancomycin Trough < 5.0 L Fingerstick Blood Sugar Results: 134 Review of Systems - Review of Systems Systems not reviewed;Unavailable: Altered Mental Status Critical Care Progress Note - Nutrition Nutrition: Nutrition Category Date Time Status NPO Diet [DIET] Diets 05/13/18 Breakfast Active Assessment/Plan - Assessment and Plan (Free Text) Assessment: 53 y/o M with a PMHx of multiple GI bleeding, alcohol abuse, alcoholic cirrhosis (s/P Tips) and esophageal varices was admitted to ICU due to acute GI bleeding, hypotension, sepsis with pneumonia as source of infection, and acute anemia. --Admission complicated by bacteremia, VRE faecium. PLAN: 1. Bacteremia --On IV Zyvox --CT lung last night (preliminary) showed signs of Bilateral basal multifocal Bronchopneumonia --Blood Cx with VRE growth x2 on 05/14/18. --ID on board, Dr Hernandez 2. Acute respiratory failure --Intubated on CPAP since yesterday --Propofol sedation stopped. --Will extubate today once pt becomes alert. --D/C OGT --Oxygen by Venti mask. --Swallow evaluation s/p intubation. 3. Acute GI bleeding --Hgb stable --Endoscopy on 05/10 showed multiple dispersed non-bleeding erosions in the entire examined stomach. --GI on board, Dr Swartz. No procedure recommended. --NPO, on tube feeding --Pantoprazole PO BID --Monitor Hgb levels 4. Normocytic anemia due to acute blood loss --Hgb stable. --Will transfuse if Hgb < 7.0 --S/P 4 PRBC's. 5. Altered mental status --Hyperammonemia resolved on 05/15/18 --Stop Propofol sedation --Follow mental status 6. Electrolyte derangements --Serum K+ 3.2-low today --Serum Mg 1.5-low today --Supplement as ordered. 7. Alcohol dependency --CIWA protocol --Ativan PRN --Librium --Monitor for DT's. 8. Pancytopienia --Alcoholism-induced --F/U CBC. 9. Prophylaxis --No anticoagulation --SCD's --Continue management as ordered by primary team. Case discussed with Dr Masood Tran PGY-2 - Date & Time Date: 05/18/18 Time: 11:36 <Anders Correia - Last Filed: 05/18/18 18:45> CCU Subjective - Physician Review Subjective (Free Text): Attestation: Patient seen and examined at the bedside with Resident Dr. Kennedy Stacy; and I agree with his outline of plans and management documented above and below, reflecting my review of all applicable clinical data, and participation in the care of the patient throughout the day in ICU; today, May 18, 2018.
--- NOTE | 2018-05-18 11:45 | RAD ---
Date of service: 05/18/2018 HISTORY: intubated COMPARISON: Multiple serial examinations preceding the most recent study: May 17, 2018. FINDINGS: LUNGS: Right lower lobe infiltrate accentuated by poor inspiratory effort. PLEURA: No significant interval change compared to the prior examination(s). CARDIOVASCULAR: No atherosclerotic calcification present No significant interval change compared to the prior examination(s). OSSEOUS STRUCTURES: No significant abnormalities. Evidence of old comminuted fracture right clavicle. VISUALIZED UPPER ABDOMEN: Normal. OTHER FINDINGS: Satisfactory position of endotracheal tube and nasogastric tube. IMPRESSION: Progressive right lower lobe infiltrate in part related to poor inspiratory effort compared to the most recent studies.
--- NOTE | 2018-05-18 12:36 | CP.PCM.CON ---
History of Present Illness - History of Present Illness History of Present Illness: 53 YO male without with PMHx of multiple admissions for GI bleed, ETOH abuse, cirrhsis (s/p TIPS), esophageal varices, anemia presents to [facility] ED for cough and fever. referred for ID eval sepsis / VRE in blood started on Zyvox source unclear Review of Systems - Review of Systems All systems: reviewed and no additional remarkable complaints except - Constitutional Constitutional: As Per HPI - EENT Eyes: absent: As Per HPI, Blind Spots, Blurred Vision, Change in Vision, Decreased Night Vision, Diplopia, Discharge, Dry Eye, Exophthalmos, Floaters, Irritation, Itchy Eyes, Loss of Peripheral Vision, Pain, Photophobia, Requires Corrective Lenses, Sees Flashes, Spots in Vision, Tunnel Vision, Other Visual Disturbances, Loss of Vision, Other Ears: absent: As Per HPI, Decreased Hearing, Ear Discharge, Ear Pain, Tinnitus, Abnormal Hearing, Disequilibrium, Dizziness, Other Nose/Mouth/Throat: absent: As Per HPI, Epistaxis, Nasal Congestion, Nasal Discharge, Nasal Obstruction, Nasal Trauma, Nose Pain, Post Nasal Drip, Sinus Pain, Sinus Pressure, Bleeding Gums, Change in Voice, Dental Pain, Dry Mouth, Dysphagia, Halitosis, Hoarsness, Lip Swelling, Mouth Lesions, Mouth Pain, Odynophagia, Sore Throat, Throat Swelling, Tongue Swelling, Facial Pain, Neck Pain, Neck Mass, Other - Cardiovascular Cardiovascular: As Per HPI - Respiratory Respiratory: As Per HPI - Gastrointestinal Gastrointestinal: As Per HPI - Genitourinary Genitourinary: absent: As Per HPI, Change in Urinary Stream, Difficulty Urinating, Dysuria, Flank Pain, Hematuria, Pyuria, Nocturia, Urinary Incontin ence, Urinary Frequency, Urinary Hesitance, Urinary Urgency, Voiding Freq/Small Amts, Freq UTI, Hx Renal/Bladder Calculi, Hx /Renal Surgery, Bladder Distension, Other - Musculoskeletal Musculoskeletal: absent: As Per HPI, Abnormal Gait, Arthralgias, Atrophy, Back Pain, Deformity, Joint Swelling, Limited Range of Motion, Loss of Height, Muscle Cramps, Muscle Weakness, Myalgias, Neck Pain, Numbness, Radiating Pain into Limb, Stiffness, Tingling, Other - Integumentary Integumentary: absent: As Per HPI, Acne, Alopecia, Bleeding Lesions, Change in Hair, Change in Nails, Change in Pigmentation, Changing Lesions, Dry Skin, Erythema, Furuncle, Hirsutism, Lesions, New Lesions, Non-Healing Lesions, Photosensitivity, Pruritus, Rash, Skin Pain, Skin Ulcer, Sores, Striae, Swelling, Unusual Bruising, Wounds, Jaundice, Other - Neurological Neurological: As Per HPI - Psychiatric Psychiatric: absent: As Per HPI, Abnormal Sleep Pattern, Anhedonia, Anxiety, Auditory Hallucinations, Behavioral Changes, Change in Appetite, Change in Libido, Confusion, Depression, Difficulty Concentrating, Hallucinations, Homicidal Ideation, Hopelessness, Irritability, Memory Loss, Mood Swings, Panic Attacks, Paranoia, Suicidal Ideation, Visual Hallucinations, Tactile Hallucinations, Other - Endocrine Endocrine: absent: As Per HPI, Change in Body Appearance, Change in Libido, Cold Intolorance, Deepening of Voice, Excessive Sweating, Fatigue, Flushing, Heat Intolorance, Increase in Ring/Shoe/Hat Size, Palpitations, Polydipsia, Polyphagia, Polyuria, Other - Hematologic/Lymphatic Hematologic: absent: As Per HPI, Easy Bleeding, Easy Bruising, Lymphadenopathy, Other Past Patient History - Infectious Disease Hx of Infectious Diseases: None - Tetanus Immunizations Tetanus Immunization: Unknown - Past Medical History & Family History Past Medical History?: Yes - Past Social History Smoking Status: unable to - CARDIAC Hx Congestive Heart Failure: No Hx Hypercholesterolemia: No Hx Hypertension: Yes - PULMONARY Hx Pneumonia: Yes - NEUROLOGICAL Hx Seizures: Yes - HEENT Hx HEENT Problems: No - RENAL Hx Chronic Kidney Disease: No - ENDOCRINE/METABOLIC Hx Endocrine Disorders: No - HEMATOLOGICAL/ONCOLOGICAL Hx Anemia: Yes Hx Human Immunodeficiency Virus (HIV): No - INTEGUMENTARY Hx Dermatological Problems: Yes - MUSCULOSKELETAL/RHEUMATOLOGICAL Hx Fractures: Yes - GASTROINTESTINAL Hx Gall Bladder Disease: Yes (Cholelithiasis) Hx Gastritis: Yes Hx Pancreatitis: Yes - GENITOURINARY/GYNECOLOGICAL Hx Sexually Transmitted Disorders: No - PSYCHIATRIC Hx Anxiety: Yes - SURGICAL HISTORY Hx Surgeries: Yes - ANESTHESIA Hx Anesthesia: Yes Hx Anesthesia Reactions: No Hx Malignant Hyperthermia: No Meds Allergies/Adverse Reactions: Allergies Allergy/AdvReac Type Severity Reaction Status Date / Time aspirin AdvReac GI Bleed Verified 05/12/18 21:04 ibuprofen [From Motrin] AdvReac GI Bleed Verified 05/12/18 21:04 naproxen AdvReac GI bleed Verified 05/12/18 21:04 NSAIDS (Non-Steroidal AdvReac GI bleed Verified 05/12/18 21:04 Anti-Inflamma - Medications Medications: Current Medications Acetaminophen (Tylenol 650 Mg Supp) 650 mg DE Q6 PRN PRN Reason: Fever >100.4 F Acetaminophen (Tylenol 650mg/20.3ml Solution Ud) 650 mg PO Q6 PRN PRN Reason: Fever Last Admin: 05/15/18 00:18 Dose: 650 mg Chlordiazepoxide (Librium) 25 mg PO Q8 [facility] Last Admin: 05/18/18 09:03 Dose: 25 mg Levetiracetam 500 mg/ Sodium (Chloride) 105 mls @ 210 mls/hr IVPB Q12 JANNIE Last Admin: 05/18/18 09:01 Dose: 210 mls/hr Linezolid (Zyvox 600mg/300ml D5w) 600 mg in 300 mls @ 300 mls/hr IVPB Q12H [facility]; Protocol Last Admin: 05/18/18 03:04 Dose: 300 mls/hr Lactulose (Enulose) 20 gm NG DAILY [facility] Last Admin: 05/18/18 09:01 Dose: 20 gm Lorazepam (Ativan) 2 mg IVP Q4 PRN PRN Reason: Agitation Last Admin: 05/18/18 08:57 Dose: 2 mg Ondansetron HCl (Zofran Inj) 4 mg IVP Q6 PRN PRN Reason: Nausea/Vomiting Pantoprazole Sodium (Protonix Ec Tab) 40 mg PO BID [facility] Last Admin: 05/18/18 09:05 Dose: 40 mg Thiamine HCl (Vitamin B1 Tab) 100 mg PO DAILY [facility] Last Admin: 05/18/18 10:04 Dose: 100 mg Physical Exam - Constitutional Appears: No Acute Distress, Confused, Cachectic, Chronically Ill - Head Exam Head Exam: ATRAUMATIC, NORMOCEPHALIC - Eye Exam Eye Exam: PERRL. absent: Scleral icterus - ENT Exam ENT Exam: Mucous Membranes Dry - Neck Exam Neck exam: Negative for: Lymphadenopathy - Respiratory Exam Respiratory Exam: Decreased Breath Sounds - Cardiovascular Exam Cardiovascular Exam: REGULAR RHYTHM - GI/Abdominal Exam GI & Abdominal Exam: Diminished Bowel Sounds, Distended, Guarding, Soft, Tenderness. absent: Rebound, Rigid - Rectal Exam Rectal Exam: Deferred - Exam Exam: NORMAL INSPECTION - Extremities Exam Extremities exam: Positive for: pedal pulses present. Negative for: calf tenderness, pedal edema, tenderness - Back Exam Back exam: absent: CVA tenderness (L), CVA tenderness (R) - Neurological Exam Neurological exam: Alert, Altered, CN II-XII Intact - Psychiatric Exam Psychiatric exam: Depressed Results - Vital Signs Recent Vital Signs: Last Vital Signs Temp 97.5 F L 05/18/18 08:00 Pulse 65 05/18/18 10:00 Resp 11 L 05/18/18 10:00 BP 98/48 L 05/18/18 10:00 Pulse Ox 100 05/18/18 10:00 - Labs Result Diagrams: 05/18/18 04:50 05/18/18 04:50 Labs: Laboratory Results - last 24 hr 05/17/18 05/18/18 05/18/18 16:44 03:56 04:50 WBC 3.0 L RBC 2.97 L Hgb 8.4 L Hct 25.9 L MCV 87.0 MCH 28.2 MCHC 32.4 L RDW 18.8 H Plt Count 64 L MPV 7.3 Neut % (Auto) 63.8 Lymph % (Auto) 18.1 L [place] % (Auto) 11.7 H Eos % (Auto) 5.0 H Baso % (Auto) 1.4 Neut # (Auto) 1.9 Lymph # (Auto) 0.5 L [place] # (Auto) 0.4 Eos # (Auto) 0.2 Baso # (Auto) 0.0 pCO2 31 L pO2 101 H HCO3 24.2 ABG pH 7.46 H ABG Total CO2 23.0 ABG O2 Saturation 100.7 H ABG Base Excess -0.9 Jose Test Yes ABG Potassium 2.9 L A-a O2 Difference 145.0 Sodium 136.0 Chloride 110.0 H Glucose 142 H Lactate 1.3 Vent Mode Cpap FiO2 40.0 Pressure Support 10 CPAP 5 Potassium Carbon Dioxide Anion Gap BUN Creatinine Est GFR ( Amer) Est GFR (Non-Af Amer) POC Glucose (mg/dL) 96 Random Glucose Calcium Magnesium Arterial Blood Potassium 2.9 L Vancomycin Trough 05/18/18 05/18/18 04:50 05:00 WBC RBC Hgb Hct MCV MCH MCHC RDW Plt Count MPV Neut % (Auto) Lymph % (Auto) [place] % (Auto) Eos % (Auto) Baso % (Auto) Neut # (Auto) Lymph # (Auto) [place] # (Auto) Eos # (Auto) Baso # (Auto) pCO2 pO2 HCO3 ABG pH ABG Total CO2 ABG O2 Saturation ABG Base Excess Jose Test ABG Potassium A-a O2 Difference Sodium 137 Chloride 113 H Glucose Lactate Vent Mode FiO2 Pressure Support CPAP Potassium 3.2 L Carbon Dioxide 22 Anion Gap 5 L BUN 8 L Creatinine 0.5 L Est GFR ( Amer) > 60 Est GFR (Non-Af Amer) > 60 POC Glucose (mg/dL) Random Glucose 110 Calcium 7.1 L Magnesium 1.5 L Arterial Blood Potassium Vancomycin Trough < 5.0 L Assessment & Plan (1) Acute blood loss anemia Status: Acute Priority: High (2) Acute upper GI hemorrhage Status: Acute Priority: High (3) Cirrhosis of liver Status: Acute Priority: High (4) GI bleed Status: Acute (5) Pneumonia Status: Acute Priority: High - Assessment and Plan (Free Text) Assessment: 53 YO male without with PMHx of multiple admissions for GI bleed, ETOH abuse, cirrhsis (s/p TIPS), esophageal varices, anemia presents to [facility] ED for cough and fever. referred for ID eval sepsis / VRE in blood started on Zyvox source unclear - possibly urine, lung or GI tract repeat cultures sent
[2018-05-18] MEDS ORDERED: Piperacillin/Tazobact 3.375 GM in Sodium Chloride 0.9% 100 ML IVPB SCH (22:00)
[2018-05-19] MEDS: Piperacillin/Tazobact 3.375 GM in Sodium Chloride 0.9% 100 ML IVPB SCH ×4 (03:00→21:24)
[2018-05-19] MEDS: Linezolid 600 mg in D5W 300 ml 600 MG/300 ML BAG IVPB SCH ×2 (03:24→17:45)
[2018-05-19 05:15] LABS: HEMOGLOBIN 8.7 g/dL (12.0-18.0); MEAN CELL VOLUME 87.7 fl (80.0-94.0); MEAN CORPUSCULAR HEMOGLOBIN 28.5 pg (27.0-31.0); MEAN CORPUSCULAR HGB CONC 32.6 g/dL (33.0-37.0); RBC 3.04 Mil/uL (4.40-5.90); RED CELL DISTRIBUTION WIDTH 18.5 % (11.5-14.5); WHITE BLOOD COUNT 2.4 K/uL (4.8-10.8)
[2018-05-19 05:30] LABS: ALB/GLOB RATIO 0.5 (1.0-2.1); ALBUMIN 1.9 g/dL (3.5-5.0); ALT/SGPT 34 U/L (21-72); AST/SGOT 51 U/L (17-59); BLOOD UREA NITROGEN 7 mg/dl (9-20); CALCIUM 7.4 mg/dL (8.4-10.2); GFR NON-AFRICAN AMERICAN > 60
[2018-05-19] MEDS: levETIRAcetam 500 MG in Sodium Chloride 0.9% 100 ML IVPB SCH ×2 (09:09→21:20)
--- NOTE | 2018-05-19 09:52 | CP.CCUPN ---
<TawannaVik - Last Filed: 05/19/18 13:47> CCU Subjective - Physician Review Subjective (Free Text): 05/19/18 09:45 53 y/o M was seen and examined by bedside. Pt was extubated yesterday, on oxygen by nasal canula. Pt is awake, alert and responsive, reports feeling OK, asking for water, denies chest pain, nausea, SOB or any pain. Pt became agitated yesterday, received Ativan and Haldol. Pt afebrile and stable. Critical Care Time Spent (in minutes): 35 CCU Objective - Vital Signs / Intake & Output Vital Signs (Last 4 hours): Vital Signs Temp Pulse Resp BP Pulse Ox 05/19/18 08:00 97.8 F 76 13 117/70 97 05/19/18 06:00 66 14 119/65 97 Intake and Output (Last 8hrs): Intake & Output 05/18/18 05/19/18 05/19/18 22:59 06:59 14:59 Intake Total 584 430 Output Total 1900 1750 Balance -1316 -1320 Weight 78.471 kg Intake: IV 184 430 Intake, Piggyback 400 Output: Urine 1800 1650 Urethral (Ty) 1800 1650 Stool 100 100 - Physical Exam Head: Positive for: Atraumatic, Normocephalic Pupils: Positive for: PERRL Extroacular Muscles: Positive for: EOMI Mouth: Positive for: Dry Nose (External): Positive for: Atraumatic Neck: Positive for: Normal Range of Motion. Negative for: Meningeal Signs, Lymphadenopathy Respiratory/Chest: Positive for: Other. Negative for: Respiratory Distress, Wheezes, Rales, Rhonchi Cardiovascular: Positive for: Normal S1, S2. Negative for: Tachycardic Abdomen: Positive for: Normal Bowel Sounds. Negative for: Tenderness, Distention, Guarding Upper Extremity: Positive for: Normal Inspection Lower Extremity: Positive for: Normal Inspection Psychiatric: Positive for: Alert - Medications Active Medications: Active Medications Generic Name Dose Route Start Last Admin Trade Name Freq PRN Reason Stop Dose Admin Acetaminophen 650 mg 05/13/18 03:32 Tylenol 650 Mg Supp MO Q6 PRN Fever >100.4 F Acetaminophen 650 mg 05/14/18 23:41 05/15/18 00:18 Tylenol 650mg/20.3ml Solution Ud PO 650 mg Q6 PRN Administration Fever Chlordiazepoxide 25 mg 05/17/18 11:15 05/19/18 02:18 Librium PO Not Given Q8 JANNIE Levetiracetam 500 mg/ Sodium 105 mls @ 210 mls/hr 05/17/18 21:00 05/19/18 09:09 Chloride IVPB 210 mls/hr Q12 JANNIE Administration Linezolid 600 mg in 300 mls @ 300 mls/hr 05/18/18 04:00 05/19/18 03:24 Zyvox 600mg/300ml D5w IVPB 300 mls/hr Q12H JANNIE Administration Protocol Piperacillin Sod/Tazobactam 100 mls @ 100 mls/hr 05/18/18 18:40 05/19/18 03:00 Sod 3.375 gm/ Sodium Chloride IVPB 100 mls/hr Q6 JANNIE Administration Protocol Lactulose 20 gm 05/16/18 09:00 05/18/18 09:01 Enulose NG 20 gm DAILY JANNIE Administration Lorazepam 2 mg 05/15/18 08:35 05/19/18 00:07 Ativan IVP 2 mg Q4 PRN Administration Agitation Ondansetron HCl 4 mg 05/13/18 03:35 Zofran Inj IVP Q6 PRN Nausea/Vomiting Pantoprazole Sodium 40 mg 05/17/18 17:00 05/18/18 16:19 Protonix Ec Tab PO Not Given BID REPLACED BY [facility] Thiamine HCl 100 mg 05/16/18 11:00 05/18/18 10:04 Vitamin B1 Tab PO 100 mg DAILY JANNIE Administration - Patient Studies Lab Studies: Microbiology Studies 05/17/18 15:06 Blood Culture - Preliminary Blood NO GROWTH AFTER 24 HOURS 05/17/18 15:06 Blood Culture - Preliminary Blood NO GROWTH AFTER 24 HOURS Lab Studies 05/19/18 05/19/18 Range/Units 04:20 04:20 WBC 2.4 L (4.8-10.8) K/uL RBC 3.04 L (4.40-5.90) Mil/uL Hgb 8.7 L (12.0-18.0) g/dL Hct 26.7 L (35.0-51.0) % MCV 87.7 (80.0-94.0) fl MCH 28.5 (27.0-31.0) pg MCHC 32.6 L (33.0-37.0) g/dL RDW 18.5 H (11.5-14.5) % Plt Count 60 L (130-400) K/uL Sodium 140 (132-148) mmol/l Potassium 3.6 (3.6-5.0) MMOL/L Chloride 115 H (98-107) mmol/L Carbon Dioxide 23 (22-30) mmol/L Anion Gap 6 L (10-20) BUN 7 L (9-20) mg/dl Creatinine 0.5 L (0.8-1.5) mg/dl Est GFR ( Amer) > 60 Est GFR (Non-Af Amer) > 60 Random Glucose 119 H (75-110) mg/dL Calcium 7.4 L (8.4-10.2) mg/dL Phosphorus 3.6 (2.5-4.5) mg/dl Magnesium 1.6 (1.6-2.3) MG/DL Total Bilirubin 2.1 H (0.2-1.3) mg/dl AST 51 (17-59) U/L ALT 34 (21-72) U/L Alkaline Phosphatase 109 (38-126) U/L Total Protein 5.5 L (6.3-8.2) G/DL Albumin 1.9 L (3.5-5.0) g/dL Globulin 3.6 (2.2-3.9) gm/dL Albumin/Globulin Ratio 0.5 L (1.0-2.1) Laboratory Results - last 24 hr 05/19/18 05/19/18 04:20 04:20 WBC 2.4 L RBC 3.04 L Hgb 8.7 L Hct 26.7 L MCV 87.7 MCH 28.5 MCHC 32.6 L RDW 18.5 H Plt Count 60 L Sodium 140 Potassium 3.6 Chloride 115 H Carbon Dioxide 23 Anion Gap 6 L BUN 7 L Creatinine 0.5 L Est GFR ( Amer) > 60 Est GFR (Non-Af Amer) > 60 Random Glucose 119 H Calcium 7.4 L Phosphorus 3.6 Magnesium 1.6 Total Bilirubin 2.1 H AST 51 ALT 34 Alkaline Phosphatase 109 Total Protein 5.5 L Albumin 1.9 L Globulin 3.6 Albumin/Globulin Ratio 0.5 L Fingerstick Blood Sugar Results: 134 Review of Systems - Constitutional Constitutional: absent: Sweats - EENT Eyes: absent: Change in Vision Ears: absent: Ear Pain, Tinnitus Nose/Mouth/Throat: absent: Epistaxis, Nasal Congestion, Nasal Discharge, Nose Pain, Sore Throat, Neck Pain - Cardiovascular Cardiovascular: absent: Chest Pain, Dyspnea, Edema - Respiratory Respiratory: absent: Cough, Dyspnea, Hemoptysis, Wheezing - Gastrointestinal Gastrointestinal: absent: Abdominal Pain, Bloating, Nausea, Vomiting - Genitourinary Genitourinary: absent: Dysuria, Flank Pain, Hematuria, Nocturia Critical Care Progress Note - Nutrition Nutrition: Nutrition Category Date Time Status NPO Diet [DIET] Diets 05/19/18 Breakfast Active Assessment/Plan - Assessment and Plan (Free Text) Assessment: 53 y/o M with a PMHx of multiple GI bleeding, alcohol abuse, alcoholic cirrhosis (s/P Tips) and esophageal varices was admitted to ICU due to acute GI bleeding, hypotension, sepsis with pneumonia as source of infection, and acute anemia. --Admission complicated by bacteremia, VRE faecium. PLAN: 1. Bacteremia --On IV Zyvox --Blood Cx with VRE growth x2 on 05/14/18. --ID on board, Dr Hernandez --F/U CBC as Linezolid can exacerbate pancytopenia. 2. Acute respiratory failure ---Resolved --Extubated yesterday --Oxygen by NC,saturating at 100%. --F/U swallow evaluation. 3. Acute GI bleeding --Hgb stable --Endoscopy on 05/10 showed multiple dispersed non-bleeding erosions in the entire examined stomach. --GI on board, Dr Swartz. No procedure recommended. --Pantoprazole PO BID --Monitor Hgb levels --NPO until swallow evaluation. 4. Normocytic anemia due to acute blood loss --Hgb stable. --Will transfuse if Hgb < 7.0 --S/P 4 PRBC's. 5. Altered mental status --Improved today. --Became restless and agitated overnight, Haldol given. --Follow mental status, monitor for DT's. 6. Electrolyte derangements --Serum K+ 3.6-wnl --Serum Mg 1.6-wnl --Replaced as needed. 7. Alcohol dependency --CIWA protocol --Ativan PRN --PO Librium --Monitor for DT's. 8. Pancytopienia --Alcoholism-induced --F/U CBC as Linezolid can exacerbate pancytopenia. 9. Prophylaxis --No anticoagulation --SCD's --Continue management as ordered by primary team. Case discussed with Dr Masood Tran PGY-2 - Date & Time Date: 05/19/18 Time: 11:00 <Anders Correia - Last Filed: 05/19/18 16:17> CCU Subjective - Physician Review Subjective (Free Text): Attestation: Patient seen and examined at the bedside with Resident Dr. Kennedy Stacy; and I agree with his outline of plans and management documented above and below, reflecting my review of all applicable clinical data, and participation in the care of the patient throughout the day in ICU; today, May 19, 2018.
--- NOTE | 2018-05-19 10:15 | CP.PCM.PN ---
<Josselyn Lucas - Last Filed: 05/19/18 10:57> Subjective - Date & Time of Evaluation Date of Evaluation: 05/19/18 Time of Evaluation: 07:00 - Subjective Subjective: Overnight events noted- agitated, received Ativan and Haldol. Pt seen and examined this morning with Dr. Lei. Seen sleeping with respirations at ease. Stated he was hungry and wanted to eat. Explained to patient that he needed to pass swallow before we can safely initiate food. Also stressed importance of receiving IV Antibiotics for 10 more days given his bacteremia. 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 Objective - Vital Signs/Intake and Output Vital Signs (last 24 hours): Temp Pulse Resp BP Pulse Ox 97.8 F 76 13 117/70 97 05/19/18 08:00 05/19/18 08:00 05/19/18 08:00 05/19/18 08:00 05/19/18 08:00 Intake and Output: 05/19/18 05/19/18 06:59 18:59 Intake Total 690 Output Total 2550 Balance -1860 - Medications Medications: Current Medications Acetaminophen (Tylenol 650 Mg Supp) 650 mg [place] Q6 PRN PRN Reason: Fever >100.4 F Acetaminophen (Tylenol 650mg/20.3ml Solution Ud) 650 mg PO Q6 PRN PRN Reason: Fever Last Admin: 05/15/18 00:18 Dose: 650 mg Chlordiazepoxide (Librium) 25 mg PO Q8 JANNIE Last Admin: 05/19/18 02:18 Dose: Not Given Levetiracetam 500 mg/ Sodium (Chloride) 105 mls @ 210 mls/hr IVPB Q12 JANNIE Last Admin: 05/19/18 09:09 Dose: 210 mls/hr Linezolid (Zyvox 600mg/300ml D5w) 600 mg in 300 mls @ 300 mls/hr IVPB Q12H JANNIE; Protocol Last Admin: 05/19/18 03:24 Dose: 300 mls/hr Piperacillin Sod/Tazobactam (Sod 3.375 gm/ Sodium Chloride) 100 mls @ 100 mls/hr IVPB Q6 JANNIE; Protocol Last Admin: 05/19/18 10:13 Dose: 100 mls/hr Lactulose (Enulose) 20 gm NG DAILY JANNIE Last Admin: 05/18/18 09:01 Dose: 20 gm Lorazepam (Ativan) 2 mg IVP Q4 PRN PRN Reason: Agitation Last Admin: 05/19/18 00:07 Dose: 2 mg Ondansetron HCl (Zofran Inj) 4 mg IVP Q6 PRN PRN Reason: Nausea/Vomiting Pantoprazole Sodium (Protonix Ec Tab) 40 mg PO BID [facility] Last Admin: 05/18/18 16:19 Dose: Not Given Thiamine HCl (Vitamin B1 Tab) 100 mg PO DAILY [facility] Last Admin: 05/18/18 10:04 Dose: 100 mg - Labs Labs: 05/19/18 04:20 05/19/18 04:20 PT 16.1 Seconds (9.8-13.1) H 05/12/18 21:35 INR 1.4 05/12/18 21:35 APTT 34.6 Seconds (25.6-37.1) 05/15/18 04:42 - Constitutional Appears: No Acute Distress - Head Exam Head Exam: NORMAL INSPECTION - Eye Exam Eye Exam: Scleral icterus - ENT Exam ENT Exam: Mucous Membranes Moist - Respiratory Exam Respiratory Exam: Clear to Ausculation Bilateral, Rales (scattered). absent: Accessory Muscle Use, Wheezes - Cardiovascular Exam Cardiovascular Exam: REGULAR RHYTHM, +S1, +S2. absent: Murmur - GI/Abdominal Exam GI & Abdominal Exam: Soft, Normal Bowel Sounds. absent: Distended, Tenderness - Extremities Exam Extremities Exam: absent: Pedal Edema - Neurological Exam Neurological Exam: Alert (mildy lethargic, falls asleep mid conversation) Neuro motor strength exam: Left Upper Extremity: 5, Right Upper Extremity: 5, Left Lower Extremity: 5, Right Lower Extremity: 5 - Psychiatric Exam Psychiatric exam: Flat Affect. absent: Agitated, Anxious - Skin Skin Exam: Normal Color Assessment and Plan - Assessment and Plan (Free Text) Assessment: 54 y/o man w/ pmh of ETOH abuse, unwitnessed seizures, cirrhosis (s/p TIPS), hepatic encephalopathy admitted for GI bleed, anemia, sepsis, pneumonia, and hepatic encephalopathy. Was intubated for protection of airways and extubated on 05/17. GI bleed resolved, hemoglobin has been steady. Pt noted to have bacteremia growing VRE for which he is receiving IV antibiotics for. Will receive Picc line pending negative blood cx. Plan: Bacteremia -Afebrile -Bcx (05/14)x2: Vancomycin Resistant E. Faecium -Bcx (05/17)x2: No growth in 24hrs (prelim) -Ucx (05/12): gram + cocci (pending final read) -Lung CT: Bilateral multifocal pnu -Unknown source, may be UTI vs PNU -Echo ordered -Tylenol PRN fever -C/W Linezolid started as per ID, Dr. Hernandez. Watch for agranulocytosis given pt's pancytopenia -C/W Zosyn for possible aspiration pnuemonia Acute GI bleed, resolved -Hematemesis on admission, no new episodes -Hb 8.7 today -s/p 4 units of PRBC order given acute bleeding -Last Endoscopy 04/2018: normal esophagus, multiple non-bleeding erosions found in the stomach, normal duodenum (Dr. Swartz) -Zofran PRN -GI consulted- no plan for scope. Tranfuse prn. -C/W Pantaprazole 40mg BID -f/u CBC Hyperammonemia - resolved -Ammonia level 27 -Lactulose 20 gm po daily Electrolyte derangements -Hypomagnesemia-Mg 1.6 today -Hypokalemia- 3.6 today, repleted with 40mg of PO KCl -F/U BMP and Mag Liver Cirrhosis -chronic, 2/2 to ETOH abuse -MELD's Score 13 -Zosyn covers for SBP Pancytopenia -chronic -likely 2/2 to ETOH abuse and cirrhosis -WBC 2.4, H 8.7, platelets 60 Alcohol Abuse -chronic -ETOH <10 on admission -CIWA 0 this morning, but agitated and delirious overnight. 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 <Sandra Lei - Last Filed: 05/19/18 15:44> Objective - Vital Signs/Intake and Output Vital Signs (last 24 hours): Temp Pulse Resp BP Pulse Ox 97.4 F L 71 14 106/52 L 97 05/19/18 12:00 05/19/18 14:00 05/19/18 14:00 05/19/18 14:00 05/19/18 14:00 Intake and Output: 05/19/18 05/19/18 06:59 18:59 Intake Total 690 800 Output Total 2550 100 Balance -1860 700 - Medications Medications: Current Medications Acetaminophen (Tylenol 650 Mg Supp) 650 mg [place] Q6 PRN PRN Reason: Fever >100.4 F Acetaminophen (Tylenol 650mg/20.3ml Solution Ud) 650 mg PO Q6 PRN PRN Reason: Fever Last Admin: 05/15/18 00:18 Dose: 650 mg Chlordiazepoxide (Librium) 25 mg PO Q8 [facility] Last Admin: 05/19/18 11:51 Dose: 25 mg Levetiracetam 500 mg/ Sodium (Chloride) 105 mls @ 210 mls/hr IVPB Q12 [facility]ANNIE Last Admin: 05/19/18 09:09 Dose: 210 mls/hr Linezolid (Zyvox 600mg/300ml D5w) 600 mg in 300 mls @ 300 mls/hr IVPB Q12H JANNIE; Protocol Last Admin: 05/19/18 03:24 Dose: 300 mls/hr Piperacillin Sod/Tazobactam (Sod 3.375 gm/ Sodium Chloride) 100 mls @ 100 mls/hr IVPB Q6 [facility]; Protocol Last Admin: 05/19/18 10:13 Dose: 100 mls/hr Lactulose (Enulose) 20 gm NG DAILY [facility]ANNIE Last Admin: 05/19/18 11:51 Dose: 20 gm Ondansetron HCl (Zofran Inj) 4 mg IVP Q6 PRN PRN Reason: Nausea/Vomiting Pantoprazole Sodium (Protonix Ec Tab) 40 mg PO BID [facility] Last Admin: 05/19/18 11:51 Dose: 40 mg Thiamine HCl (Vitamin B1 Tab) 100 mg PO DAILY [facility] Last Admin: 05/19/18 11:51 Dose: 100 mg - Labs Labs: 05/19/18 04:20 05/19/18 04:20 PT 16.1 Seconds (9.8-13.1) H 05/12/18 21:35 INR 1.4 05/12/18 21:35 APTT 34.6 Seconds (25.6-37.1) 05/15/18 04:42 Attending/Attestation - Attestation I have personally seen and examined this patient.: Yes I have fully participated in the care of the patient.: Yes I have reviewed all pertinent clinical information, including history, physical exam and plan: Yes Notes (Text): Sepsis ( POA) with VRE Bacteremia unclear etiology of infection, may be from Pneumonia vs UTI -rpt Blood c/s , if neg, plan to put in PICC line and d/c pt to [facility] for 10 more days of IV Zyvox for VRE Bacteremia -ECHO ; neg for vegetation Respiratory Failure with Hypoxemia due to Pneumonia - resolved, pt extubated Alcohol Cirrhosis Alcohol Withdrawal Seizure Dis Pancytopenia likely due to ETOH Deconditioning - PT consulted - rec ESME
[2018-05-19] MEDS: Pantoprazole 40 mg EC Tab PO SCH ×2 (11:51→17:45)
--- NOTE | 2018-05-19 14:47 | CARD ---
APPROVED REPORT Date of service: 05/19/2018 EXAM: Two-dimensional and M-mode echocardiogram with Doppler and color Doppler. Other Information Quality : GoodRhythm : NSR INDICATION Infection:Subacute bacterial endocarditis BACTEREMIA 2D DIMENSIONS IVSd0.89 (0.7-1.1cm)LVDd4.97 (3.9-5.9cm) LVOT Diameter2.76 (1.8-2.4cm)PWd1.10 (0.7-1.1cm) IVSs1.28 (0.8-1.2cm)LVDs4.52 (2.5-4.0cm) FS (%) 9.1 %PWs1.51 (0.8-1.2cm) M-Mode DIMENSIONS Left Atrium (MM)3.74 (2.5-4.0cm)IVSd0.97 (0.7-1.1cm) Aortic Root3.00 (2.2-3.7cm)LVDd6.21 (4.0-5.6cm) Aortic Cusp Exc.1.88 (1.5-2.0cm)PWd1.09 (0.7-1.1cm) IVSs1.26 cmFS (%) 35 % LVDs4.03 (2.0-3.8cm)PWs1.94 cm Aortic Valve AoV Peak Iurqyzpz617.1cm/sAoV VTI34.4cmAO Peak GR.12mmHg LVOT Peak Dgpbivqr395.4cm/sLVOT VTI23.97cmAO Mean GR.7mmHg EMILY (VMAX)2.04ik7KDI (VTI)2.06cm2 Mitral Valve MV E Lzpwwjlr09.2cm/sMV DECEL OETY761omQO A Ixrasfvu46.6cm/s MV CVS53yfO/A ratio1.2MVA (PHT)3.21cm2 TDI Lateral E' Peak V17.44cm/sMedial E' Peak V12.96cm/sE/Lateral E'4.5 E/Medial E'6.0 LEFT VENTRICLE The left ventricle is normal size. There is normal left ventricular wall thickness. The left ventricular systolic function is normal. The estimated ejection fraction is 55-60% No regional wall motion abnormalities noted.. The left ventricular diastolic function is normal. No left ventricle thrombus noted on this study. There is no ventricular septal defect visualized. There is no left ventricular aneurysm. There is no mass noted in the left ventricle. RIGHT VENTRICLE The right ventricle is normal size. There is normal right ventricular wall thickness. The right ventricular systolic function is normal. ATRIA The left atrium is mildly dilated. The right atrium size is normal. The interatrial septum possibly has a small ASD or PFO. Consider further testing if clinically indicated. AORTIC VALVE The aortic valve is normal in structure. No aortic regurgitation is present. There is no aortic valvular stenosis. There is no aortic valvular vegetation. MITRAL VALVE The mitral valve is normal in structure. There is no evidence of mitral valve prolapse. There is no mitral valve stenosis. There is trivial mitral valve regurgitation noted. TRICUSPID VALVE The tricuspid valve is normal in structure. There is no tricuspid valve regurgitation noted. There is no tricuspid valve prolapse or vegetation. There is no tricuspid valve stenosis. PULMONIC VALVE The pulmonary valve is normal in structure. There is no pulmonic valvular regurgitation. There is no pulmonic valvular stenosis. GREAT VESSELS The aortic root is normal in size. The ascending aorta is normal in size. The pulmonary artery is normal. The IVC is normal in size and collapses >50% with inspiration. PERICARDIAL EFFUSION There is no pericardial effusion. There is no pleural effusion. <Conclusion> The estimated ejection fraction is 55-60% The left ventricular diastolic function is normal. The left atrium is mildly dilated. The interatrial septum possibly has a small ASD or PFO. Consider further testing if clinically indicated. No vegetations were seen in this study. Correlate clinically.
--- NOTE | 2018-05-19 18:15 | CP.PCM.PN ---
Subjective - Date & Time of Evaluation Date of Evaluation: 05/19/18 Time of Evaluation: 08:00 - Subjective Subjective: bedridden less agitated nad Objective - Vital Signs/Intake and Output Vital Signs (last 24 hours): Temp Pulse Resp BP Pulse Ox 98.7 F 87 18 108/56 L 98 05/19/18 16:00 05/19/18 18:00 05/19/18 18:00 05/19/18 18:00 05/19/18 18:00 Intake and Output: 05/19/18 05/19/18 06:59 18:59 Intake Total 690 1700 Output Total 2550 2300 Balance -1860 -600 - Medications Medications: Current Medications Acetaminophen (Tylenol 650 Mg Supp) 650 mg [place] Q6 PRN PRN Reason: Fever >100.4 F Acetaminophen (Tylenol 650mg/20.3ml Solution Ud) 650 mg PO Q6 PRN PRN Reason: Fever Last Admin: 05/15/18 00:18 Dose: 650 mg Chlordiazepoxide (Librium) 25 mg PO Q8 JANNIE Last Admin: 05/19/18 17:45 Dose: 25 mg Levetiracetam 500 mg/ Sodium (Chloride) 105 mls @ 210 mls/hr IVPB Q12 JANNIE Last Admin: 05/19/18 09:09 Dose: 210 mls/hr Linezolid (Zyvox 600mg/300ml D5w) 600 mg in 300 mls @ 300 mls/hr IVPB Q12H JANNIE; Protocol Last Admin: 05/19/18 17:45 Dose: 300 mls/hr Piperacillin Sod/Tazobactam (Sod 3.375 gm/ Sodium Chloride) 100 mls @ 100 mls/hr IVPB Q6 JANNIE; Protocol Last Admin: 05/19/18 16:42 Dose: 100 mls/hr Lactulose (Enulose) 20 gm NG DAILY JANNIE Last Admin: 05/19/18 11:51 Dose: 20 gm Ondansetron HCl (Zofran Inj) 4 mg IVP Q6 PRN PRN Reason: Nausea/Vomiting Pantoprazole Sodium (Protonix Ec Tab) 40 mg PO BID [facility] Last Admin: 05/19/18 17:45 Dose: 40 mg Thiamine HCl (Vitamin B1 Tab) 100 mg PO DAILY JANNIE Last Admin: 05/19/18 11:51 Dose: 100 mg - Labs Labs: 05/19/18 04:20 05/19/18 04:20 PT 16.1 Seconds (9.8-13.1) H 05/12/18 21:35 INR 1.4 05/12/18 21:35 APTT 34.6 Seconds (25.6-37.1) 05/15/18 04:42 - Constitutional Appears: Non-toxic, Chronically Ill - Head Exam Head Exam: NORMOCEPHALIC - Eye Exam Eye Exam: absent: Scleral icterus - ENT Exam ENT Exam: Mucous Membranes Dry - Neck Exam Neck Exam: absent: Lymphadenopathy - Respiratory Exam Respiratory Exam: Decreased Breath Sounds - Cardiovascular Exam Cardiovascular Exam: REGULAR RHYTHM - GI/Abdominal Exam GI & Abdominal Exam: Distended - Rectal Exam Rectal Exam: Deferred - Exam Exam: NORMAL INSPECTION - Extremities Exam Extremities Exam: absent: Pedal Edema - Back Exam Back Exam: absent: CVA tenderness (L), CVA tenderness (R), paraspinal tenderness Assessment and Plan (1) Acute blood loss anemia Status: Acute (2) Acute upper GI hemorrhage Status: Acute (3) Cirrhosis of liver Status: Acute (4) GI bleed Status: Acute (5) Pneumonia Status: Acute - Assessment and Plan (Free Text) Assessment: VRE sepsis / pneumonia / bacteremia repeat cultures neg thus far cont zyvox min 14 days
[2018-05-20] MEDS: Piperacillin/Tazobact 3.375 GM in Sodium Chloride 0.9% 100 ML IVPB SCH ×5 (04:14→21:12)
[2018-05-20] MEDS: Linezolid 600 mg in D5W 300 ml 600 MG/300 ML BAG IVPB SCH ×2 (04:17→16:35)
[2018-05-20 08:53] LABS: INR 1.9; PROTHROMBIN TIME 21.9 Seconds (9.8-13.1)
[2018-05-20] MEDS: levETIRAcetam 500 MG in Sodium Chloride 0.9% 100 ML IVPB SCH ×2 (08:54→20:14)
[2018-05-20] MEDS: Pantoprazole 40 mg EC Tab PO SCH ×2 (08:55→16:43)
--- NOTE | 2018-05-20 09:51 | CP.PCM.PN ---
Subjective - Date & Time of Evaluation Date of Evaluation: 05/20/18 Time of Evaluation: 08:00 - Subjective Subjective: No acute events overnight. Pt seen and examined this morning. In good spirits. Denies pain, discomfort, cough. Has been eating well. Discussed plan for residential placement, pt is agreeable for this. Objective - Vital Signs/Intake and Output Vital Signs (last 24 hours): Temp Pulse Resp BP Pulse Ox 97.4 F L 73 20 111/63 95 05/20/18 07:57 05/20/18 07:57 05/20/18 07:57 05/20/18 07:57 05/20/18 07:57 - Medications Medications: Current Medications Acetaminophen (Tylenol 650 Mg Supp) 650 mg [place] Q6 PRN PRN Reason: Fever >100.4 F Acetaminophen (Tylenol 650mg/20.3ml Solution Ud) 650 mg PO Q6 PRN PRN Reason: Fever Last Admin: 05/15/18 00:18 Dose: 650 mg Chlordiazepoxide (Librium) 25 mg PO Q8 JANNIE Last Admin: 05/20/18 08:54 Dose: 25 mg Levetiracetam 500 mg/ Sodium (Chloride) 105 mls @ 210 mls/hr IVPB Q12 JANNIE Last Admin: 05/20/18 08:54 Dose: 210 mls/hr Linezolid (Zyvox 600mg/300ml D5w) 600 mg in 300 mls @ 300 mls/hr IVPB Q12H JANNIE; Protocol Last Admin: 05/20/18 04:17 Dose: 300 mls/hr Piperacillin Sod/Tazobactam (Sod 3.375 gm/ Sodium Chloride) 100 mls @ 100 mls/hr IVPB Q6 JANNIE; Protocol Last Admin: 05/20/18 04:14 Dose: 100 mls/hr Lactulose (Enulose) 20 gm NG DAILY [facility]ANNIE Last Admin: 05/20/18 08:53 Dose: 20 gm Ondansetron HCl (Zofran Inj) 4 mg IVP Q6 PRN PRN Reason: Nausea/Vomiting Pantoprazole Sodium (Protonix Ec Tab) 40 mg PO BID [facility] Last Admin: 05/20/18 08:55 Dose: 40 mg Thiamine HCl (Vitamin B1 Tab) 100 mg PO DAILY [facility] Last Admin: 05/20/18 08:55 Dose: 100 mg - Labs Labs: 05/19/18 04:20 05/19/18 04:20 PT 21.9 Seconds (9.8-13.1) H 05/20/18 08:32 INR 1.9 05/20/18 08:32 APTT 34.6 Seconds (25.6-37.1) 05/15/18 04:42 - Constitutional Appears: No Acute Distress - Head Exam Head Exam: NORMAL INSPECTION - Eye Exam Eye Exam: Normal appearance - ENT Exam ENT Exam: Mucous Membranes Moist - Respiratory Exam Respiratory Exam: Clear to Ausculation Bilateral, Rales (scattered, mild). absent: Wheezes - Cardiovascular Exam Cardiovascular Exam: REGULAR RHYTHM, +S1, +S2. absent: Murmur - GI/Abdominal Exam GI & Abdominal Exam: Soft, Normal Bowel Sounds, Organomegaly. absent: Tenderness - Extremities Exam Extremities Exam: Normal Capillary Refill, Normal Inspection. absent: Pedal Edema - Neurological Exam Neurological Exam: Alert, Awake, Oriented x3 - Psychiatric Exam Psychiatric exam: Normal Affect - Skin Skin Exam: Normal Color Assessment and Plan - Assessment and Plan (Free Text) Assessment: 54 y/o man w/ pmh of ETOH abuse, unwitnessed seizures, cirrhosis (s/p TIPS), hepatic encephalopathy admitted for GI bleed, anemia, sepsis, pneumonia, and hepatic encephalopathy. Was intubated for protection of airways and extubated on 05/17. GI bleed resolved, hemoglobin has been steady. Pt noted to have bacteremia growing VRE for which he is receiving IV antibiotics for. Will receive Picc line pending negative blood cx. Plan: Bacteremia -Afebrile -Bcx (05/14)x2: Vancomycin Resistant E. Faecium -Bcx (05/17)x2: No growth in 24hrs (prelim) -Ucx (05/12): gram + cocci (pending final read) -Lung CT: Bilateral multifocal pnu -Unknown source, may be UTI vs PNU -Echo completed 05/19- no vegetations seen -Tylenol PRN fever -C/W Linezolid started as per ID, Dr. Hernandez. Watch for agranulocytosis given pt's pancytopenia -C/W Zosyn for possible aspiration pnuemonia Acute GI bleed, resolved -Hematemesis on admission, no new episodes -Hb 8.7 today -s/p 4 units of PRBC order given acute bleeding -Last Endoscopy 04/2018: normal esophagus, multiple non-bleeding erosions found in the stomach, normal duodenum (Dr. Swartz) -Zofran PRN -GI consulted- no plan for scope. Tranfuse prn. -C/W Pantaprazole 40mg BID -f/u CBC Hyperammonemia - resolved -Ammonia level 27 -Lactulose 20 gm po daily Electrolyte derangements- resolved -Hypomagnesemia-Mg 1.6 today -Hypokalemia- 3.6 today, repleted with 40mg of PO KCl -F/U BMP and Mag Liver Cirrhosis -chronic, 2/2 to ETOH abuse -MELD's Score 13 -Zosyn covers for SBP Pancytopenia -chronic -likely 2/2 to ETOH abuse and cirrhosis -WBC 2.4, H 8.7, platelets 60 Alcohol Abuse -chronic -ETOH <10 on admission -CIWA 0 this morning, but agitated and delirious overnight. 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
[2018-05-20] MEDS ORDERED: Lidocaine 1% Inj (20ml) ONE (12:55)
--- NOTE | 2018-05-20 13:08 | CP.PCM.PN ---
Subjective - Date & Time of Evaluation Date of Evaluation: 05/20/18 Time of Evaluation: 08:00 - Subjective Subjective: afeb on Zyvox going for PICC line Objective - Vital Signs/Intake and Output Vital Signs (last 24 hours): Temp Pulse Resp BP Pulse Ox 97.4 F L 88 18 114/78 95 05/20/18 13:01 05/20/18 13:01 05/20/18 13:01 05/20/18 13:01 05/20/18 07:57 - Medications Medications: Current Medications Acetaminophen (Tylenol 650 Mg Supp) 650 mg [place] Q6 PRN PRN Reason: Fever >100.4 F Acetaminophen (Tylenol 650mg/20.3ml Solution Ud) 650 mg PO Q6 PRN PRN Reason: Fever Last Admin: 05/15/18 00:18 Dose: 650 mg Chlordiazepoxide (Librium) 25 mg PO Q8 [facility]ANNIE Last Admin: 05/20/18 08:54 Dose: 25 mg Levetiracetam 500 mg/ Sodium (Chloride) 105 mls @ 210 mls/hr IVPB Q12 [facility]ANNIE Last Admin: 05/20/18 08:54 Dose: 210 mls/hr Linezolid (Zyvox 600mg/300ml D5w) 600 mg in 300 mls @ 300 mls/hr IVPB Q12H [facility]ANNIE; Protocol Last Admin: 05/20/18 04:17 Dose: 300 mls/hr Piperacillin Sod/Tazobactam (Sod 3.375 gm/ Sodium Chloride) 100 mls @ 100 mls/hr IVPB Q6 [facility]ANNIE; Protocol Last Admin: 05/20/18 04:14 Dose: 100 mls/hr Lactulose (Enulose) 20 gm NG DAILY [facility]ANNIE Last Admin: 05/20/18 08:53 Dose: 20 gm Ondansetron HCl (Zofran Inj) 4 mg IVP Q6 PRN PRN Reason: Nausea/Vomiting Pantoprazole Sodium (Protonix Ec Tab) 40 mg PO BID [facility] Last Admin: 05/20/18 08:55 Dose: 40 mg Thiamine HCl (Vitamin B1 Tab) 100 mg PO DAILY [facility] Last Admin: 05/20/18 08:55 Dose: 100 mg - Labs Labs: 05/19/18 04:20 05/19/18 04:20 PT 21.9 Seconds (9.8-13.1) H 05/20/18 08:32 INR 1.9 05/20/18 08:32 APTT 34.6 Seconds (25.6-37.1) 05/15/18 04:42 - Constitutional Appears: Non-toxic, Chronically Ill - Head Exam Head Exam: NORMOCEPHALIC - Eye Exam Eye Exam: absent: Scleral icterus - ENT Exam ENT Exam: Mucous Membranes Dry - Neck Exam Neck Exam: absent: Lymphadenopathy - Respiratory Exam Respiratory Exam: Decreased Breath Sounds - Cardiovascular Exam Cardiovascular Exam: REGULAR RHYTHM - GI/Abdominal Exam GI & Abdominal Exam: Distended, Soft - Rectal Exam Rectal Exam: Deferred - Exam Exam: NORMAL INSPECTION - Extremities Exam Extremities Exam: absent: Pedal Edema - Back Exam Back Exam: absent: CVA tenderness (L), CVA tenderness (R) - Neurological Exam Neurological Exam: Alert, Awake, Oriented x3 Assessment and Plan (1) Acute blood loss anemia Status: Acute (2) Acute upper GI hemorrhage Status: Acute (3) Cirrhosis of liver Status: Acute (4) GI bleed Status: Acute (5) Pneumonia Status: Acute
--- NOTE | 2018-05-20 13:20 | PCM.SURG1 ---
Surgeon's Initial Post Op Note - Surgeon's Notes Surgeon: Marcio Beck MD [employer] Manager: NONE Type of Anesthesia: Local Pre-Operative Diagnosis: Infection Operative Findings: US showed patent right basilic vein Post-Operative Diagnosis: Infection Operation Performed: Single lumen picc right arm, 35 cm. Tip in SVC. Specimen/Specimens Removed: NONE Estimated Blood Loss: EBL {In ML}: 2 Blood Products Given: N/A Drains Used: No Drains Post-Op Condition: Fair Date of Surgery/Procedure: 05/20/18 Time of Surgery/Procedure: 13:20
[2018-05-21] MEDS: Piperacillin/Tazobact 3.375 GM in Sodium Chloride 0.9% 100 ML IVPB SCH ×4 (03:10→21:15)
[2018-05-21] MEDS: Linezolid 600 mg in D5W 300 ml 600 MG/300 ML BAG IVPB SCH ×2 (04:02→16:29)
[2018-05-21] MEDS: levETIRAcetam 500 MG in Sodium Chloride 0.9% 100 ML IVPB SCH ×2 (08:27→21:10)
[2018-05-21] MEDS: Pantoprazole 40 mg EC Tab PO SCH ×2 (08:27→16:25)
--- NOTE | 2018-05-21 11:53 | CP.PCM.PN ---
<Felipe Mcleod - Last Filed: 05/21/18 14:02> Subjective - Date & Time of Evaluation Date of Evaluation: 05/21/18 Time of Evaluation: 08:40 - Subjective Subjective: Patient seen and examined at bedside resting comfortably. Denies acute events overnight. Tolerating PO diet. Receiving IV abx. Objective - Vital Signs/Intake and Output Vital Signs (last 24 hours): Temp Pulse Resp BP Pulse Ox 97.9 F 75 20 114/64 96 05/21/18 07:36 05/21/18 07:36 05/21/18 07:36 05/21/18 07:36 05/21/18 07:36 - Medications Medications: Current Medications Acetaminophen (Tylenol 650 Mg Supp) 650 mg [place] Q6 PRN PRN Reason: Fever >100.4 F Acetaminophen (Tylenol 650mg/20.3ml Solution Ud) 650 mg PO Q6 PRN PRN Reason: Fever Last Admin: 05/15/18 00:18 Dose: 650 mg Chlordiazepoxide (Librium) 10 mg PO Q8 [facility] Last Admin: 05/21/18 08:26 Dose: 10 mg Levetiracetam 500 mg/ Sodium (Chloride) 105 mls @ 210 mls/hr IVPB Q12 [facility] Last Admin: 05/21/18 08:27 Dose: 210 mls/hr Linezolid (Zyvox 600mg/300ml D5w) 600 mg in 300 mls @ 300 mls/hr IVPB Q12H [facility]; Protocol Last Admin: 05/21/18 04:02 Dose: 300 mls/hr Piperacillin Sod/Tazobactam (Sod 3.375 gm/ Sodium Chloride) 100 mls @ 100 mls/hr IVPB Q6 [facility]; Protocol Last Admin: 05/21/18 09:01 Dose: 100 mls/hr Lactulose (Enulose) 20 gm NG DAILY [facility] Last Admin: 05/21/18 08:26 Dose: 20 gm Ondansetron HCl (Zofran Inj) 4 mg IVP Q6 PRN PRN Reason: Nausea/Vomiting Pantoprazole Sodium (Protonix Ec Tab) 40 mg PO BID [facility] Last Admin: 05/21/18 08:27 Dose: 40 mg Thiamine HCl (Vitamin B1 Tab) 100 mg PO DAILY [facility] Last Admin: 05/21/18 08:27 Dose: 100 mg - Labs Labs: 05/19/18 04:20 05/19/18 04:20 PT 21.9 Seconds (9.8-13.1) H 05/20/18 08:32 INR 1.9 05/20/18 08:32 APTT 34.6 Seconds (25.6-37.1) 05/15/18 04:42 - Constitutional Appears: No Acute Distress - Eye Exam Eye Exam: EOMI - Neck Exam Neck Exam: Full ROM - Respiratory Exam Respiratory Exam: Clear to Ausculation Bilateral, NORMAL BREATHING PATTERN. absent: Wheezes - GI/Abdominal Exam GI & Abdominal Exam: Soft, Normal Bowel Sounds. absent: Tenderness - Neurological Exam Neurological Exam: Alert, Awake - Psychiatric Exam Psychiatric exam: Normal Affect, Normal Mood Assessment and Plan - Assessment and Plan (Free Text) Assessment: 54 y/o man w/ pmh of ETOH abuse, unwitnessed seizures, cirrhosis (s/p TIPS), hepatic encephalopathy admitted for GI bleed, anemia, sepsis, pneumonia, and hepatic encephalopathy. He was intubated for protection of airways and extubated on 05/17. GI bleed resolved, hemoglobin has been stable. Pt noted to have bacteremia growing VRE for which he is receiving IV antibiotics for. Inserted Picc line 05/20/2018. Plan: Bacteremia -Afebrile -Bcx (05/14)x2: Vancomycin Resistant E. Faecium -Bcx (05/17)x2: No growth in 24hrs -Ucx (05/12): No growth -Chest CT (05/14): 05/14 Bilateral multifocal pnu -Echo completed (05/19)- no vegetations seen -Tylenol PRN fever -C/W Linezolid per ID, Dr. Hernandez. Watch for agranulocytosis given pt's panc ytopenia -C/W Zosyn for possible aspiration pneumonia Liver Cirrhosis -chronic, 2/2 to ETOH abuse -MELD's Score 13 -Zosyn covers for SBP Pancytopenia -chronic -likely 2/2 to ETOH abuse and cirrhosis -WBC 2.4, H 8.7, platelets 60 Alcohol Abuse -chronic -ETOH <10 on admission -CIWA 0 -C/W Librium 25po q8, CIWA protocol -Ativan 1mg PO q4hr PRN ETOH withdrawal -Monitor for signs of DT -Encouraged alcohol cessation Seizure Disorder -chronic, unwitnessed -C/W Keppra -Seizure precautions Acute GI bleed, (resolved) -Hematemesis on admission, no new episodes -Hb 8.7 (05/19) -s/p 4 units of PRBC -Last Endoscopy 04/2018: normal esophagus, multiple non-bleeding erosions found in the stomach, normal duodenum (Dr. Swartz) -Zofran PRN -GI consulted- no plan for scope. Transfuse prn. 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 placement <Shasha Martino - Last Filed: 05/22/18 09:21> Objective - Vital Signs/Intake and Output Vital Signs (last 24 hours): Temp Pulse Resp BP Pulse Ox 97.8 F 69 20 121/71 97 05/22/18 08:08 05/22/18 08:08 05/22/18 08:08 05/22/18 08:08 05/22/18 08:08 - Medications Medications: Current Medications Acetaminophen (Tylenol 650 Mg Supp) 650 mg [place] Q6 PRN PRN Reason: Fever >100.4 F Acetaminophen (Tylenol 650mg/20.3ml Solution Ud) 650 mg PO Q6 PRN PRN Reason: Fever Last Admin: 05/15/18 00:18 Dose: 650 mg Chlordiazepoxide (Librium) 10 mg PO Q8 [facility] Last Admin: 05/22/18 08:36 Dose: 10 mg Levetiracetam 500 mg/ Sodium (Chloride) 105 mls @ 210 mls/hr IVPB Q12 [facility] Last Admin: 05/22/18 08:36 Dose: 210 mls/hr Linezolid (Zyvox 600mg/300ml D5w) 600 mg in 300 mls @ 300 mls/hr IVPB Q12H [facility]; Protocol Last Admin: 05/22/18 03:23 Dose: 300 mls/hr Piperacillin Sod/Tazobactam (Sod 3.375 gm/ Sodium Chloride) 100 mls @ 100 mls/hr IVPB Q6 [facility]; Protocol Last Admin: 05/22/18 09:02 Dose: 100 mls/hr Lactulose (Enulose) 20 gm NG DAILY [facility] Last Admin: 05/22/18 08:37 Dose: 20 gm Lorazepam (Ativan) 1 mg PO Q4 PRN PRN Reason: Agitation Ondansetron HCl (Zofran Inj) 4 mg IVP Q6 PRN PRN Reason: Nausea/Vomiting Pantoprazole Sodium (Protonix Ec Tab) 40 mg PO BID [facility] Last Admin: 05/22/18 08:37 Dose: 40 mg Thiamine HCl (Vitamin B1 Tab) 100 mg PO DAILY [facility] Last Admin: 05/22/18 08:37 Dose: 100 mg - Labs Labs: 05/22/18 05:25 05/22/18 05:25 PT 21.9 Seconds (9.8-13.1) H 05/20/18 08:32 INR 1.9 05/20/18 08:32 APTT 34.6 Seconds (25.6-37.1) 05/15/18 04:42 Attending/Attestation - Attestation I have personally seen and examined this patient.: Yes I have fully participated in the care of the patient.: Yes I have reviewed all pertinent clinical information, including history, physical exam and plan: Yes Notes (Text): 05/22/18 09:21 Seen examined and discussed with resident. Agree with findings and plan as above. Continue abx, plan for [facility] for iv abx
--- NOTE | 2018-05-22 00:23 | CP.PCM.PN ---
Subjective - Date & Time of Evaluation Date of Evaluation: 05/21/18 Time of Evaluation: 22:30 - Subjective Subjective: Patient awake and alert. Has good apetite. Objective - Vital Signs/Intake and Output Vital Signs (last 24 hours): Temp Pulse Resp BP Pulse Ox 98.0 F 79 20 117/65 96 05/21/18 23:46 05/21/18 23:46 05/21/18 23:46 05/21/18 23:46 05/21/18 23:46 - Medications Medications: Current Medications Acetaminophen (Tylenol 650 Mg Supp) 650 mg [place] Q6 PRN PRN Reason: Fever >100.4 F Acetaminophen (Tylenol 650mg/20.3ml Solution Ud) 650 mg PO Q6 PRN PRN Reason: Fever Last Admin: 05/15/18 00:18 Dose: 650 mg Chlordiazepoxide (Librium) 10 mg PO Q8 [facility] Last Admin: 05/21/18 16:25 Dose: 10 mg Levetiracetam 500 mg/ Sodium (Chloride) 105 mls @ 210 mls/hr IVPB Q12 [facility] Last Admin: 05/21/18 21:10 Dose: 210 mls/hr Linezolid (Zyvox 600mg/300ml D5w) 600 mg in 300 mls @ 300 mls/hr IVPB Q12H [facility]; Protocol Last Admin: 05/21/18 16:29 Dose: 300 mls/hr Piperacillin Sod/Tazobactam (Sod 3.375 gm/ Sodium Chloride) 100 mls @ 100 mls/hr IVPB Q6 [facility]; Protocol Last Admin: 05/21/18 21:15 Dose: 100 mls/hr Lactulose (Enulose) 20 gm NG DAILY [facility] Last Admin: 05/21/18 08:26 Dose: 20 gm Lorazepam (Ativan) 1 mg PO Q4 PRN PRN Reason: Agitation Ondansetron HCl (Zofran Inj) 4 mg IVP Q6 PRN PRN Reason: Nausea/Vomiting Pantoprazole Sodium (Protonix Ec Tab) 40 mg PO BID [facility] Last Admin: 05/21/18 16:25 Dose: 40 mg Thiamine HCl (Vitamin B1 Tab) 100 mg PO DAILY [facility] Last Admin: 05/21/18 08:27 Dose: 100 mg - Labs Labs: 05/19/18 04:20 05/19/18 04:20 PT 21.9 Seconds (9.8-13.1) H 05/20/18 08:32 INR 1.9 05/20/18 08:32 APTT 34.6 Seconds (25.6-37.1) 05/15/18 04:42 - Head Exam Head Exam: ATRAUMATIC - Eye Exam Eye Exam: Normal appearance Pupil Exam: PERRL - ENT Exam ENT Exam: Normal Exam - Neck Exam Neck Exam: Full ROM - Respiratory Exam Respiratory Exam: Clear to Ausculation Bilateral - Cardiovascular Exam Cardiovascular Exam: REGULAR RHYTHM - GI/Abdominal Exam GI & Abdominal Exam: Soft, Normal Bowel Sounds. absent: Tenderness Assessment and Plan (1) GI bleed Assessment & Plan: Hgb remains stable and no observed bleeding. Patient awake and alert and shows no signs of encephalopathy. Continue current antibiotics. Status: Acute (2) Cirrhosis of liver Status: Acute
[2018-05-22] MEDS: Piperacillin/Tazobact 3.375 GM in Sodium Chloride 0.9% 100 ML IVPB SCH ×4 (03:18→21:36)
[2018-05-22] MEDS: Linezolid 600 mg in D5W 300 ml 600 MG/300 ML BAG IVPB SCH ×2 (03:23→16:00)
[2018-05-22 07:29] LABS: HEMOGLOBIN 8.4 g/dL (12.0-18.0); MEAN CELL VOLUME 87.5 fl (80.0-94.0); MEAN CORPUSCULAR HEMOGLOBIN 28.5 pg (27.0-31.0); MEAN CORPUSCULAR HGB CONC 32.5 g/dL (33.0-37.0); RBC 2.95 Mil/uL (4.40-5.90); RED CELL DISTRIBUTION WIDTH 18.9 % (11.5-14.5); WHITE BLOOD COUNT 2.7 K/uL (4.8-10.8)
[2018-05-22 07:36] LABS: BLOOD UREA NITROGEN 11 mg/dl (9-20); CALCIUM 7.4 mg/dL (8.4-10.2); GFR NON-AFRICAN AMERICAN > 60
[2018-05-22] MEDS: levETIRAcetam 500 MG in Sodium Chloride 0.9% 100 ML IVPB SCH ×2 (08:36→20:41)
[2018-05-22] MEDS: Pantoprazole 40 mg EC Tab PO SCH ×2 (08:37→16:01)
--- NOTE | 2018-05-22 12:34 | CP.PCM.PN ---
<Alondra Lombardo - Last Filed: 05/22/18 12:36> Subjective - Date & Time of Evaluation Date of Evaluation: 05/22/18 Time of Evaluation: 08:30 - Subjective Subjective: Patient seen and examined at beside. Sitting up comfortably in bed. Patient is tolerating PO diet, endorses having BM, and has no complaints at this time. Objective - Vital Signs/Intake and Output Vital Signs (last 24 hours): Temp Pulse Resp BP Pulse Ox 97.8 F 69 20 121/71 97 05/22/18 08:08 05/22/18 08:08 05/22/18 08:08 05/22/18 08:08 05/22/18 08:08 - Medications Medications: Current Medications Acetaminophen (Tylenol 650 Mg Supp) 650 mg [place] Q6 PRN PRN Reason: Fever >100.4 F Acetaminophen (Tylenol 650mg/20.3ml Solution Ud) 650 mg PO Q6 PRN PRN Reason: Fever Last Admin: 05/15/18 00:18 Dose: 650 mg Chlordiazepoxide (Librium) 10 mg PO Q8 [facility] Last Admin: 05/22/18 08:36 Dose: 10 mg Levetiracetam 500 mg/ Sodium (Chloride) 105 mls @ 210 mls/hr IVPB Q12 [facility] Last Admin: 05/22/18 08:36 Dose: 210 mls/hr Linezolid (Zyvox 600mg/300ml D5w) 600 mg in 300 mls @ 300 mls/hr IVPB Q12H [facility]; Protocol Last Admin: 05/22/18 03:23 Dose: 300 mls/hr Piperacillin Sod/Tazobactam (Sod 3.375 gm/ Sodium Chloride) 100 mls @ 100 mls/h r IVPB Q6 [facility]; Protocol Last Admin: 05/22/18 09:02 Dose: 100 mls/hr Lactulose (Enulose) 20 gm NG DAILY [facility] Last Admin: 05/22/18 08:37 Dose: 20 gm Lorazepam (Ativan) 1 mg PO Q4 PRN PRN Reason: Agitation Ondansetron HCl (Zofran Inj) 4 mg IVP Q6 PRN PRN Reason: Nausea/Vomiting Pantoprazole Sodium (Protonix Ec Tab) 40 mg PO BID [facility] Last Admin: 12/02/18 08:37 Dose: 40 mg Thiamine HCl (Vitamin B1 Tab) 100 mg PO DAILY [facility] Last Admin: 05/22/18 08:37 Dose: 100 mg - Labs Labs: 05/22/18 05:25 05/22/18 05:25 PT 21.9 Seconds (9.8-13.1) H 05/20/18 08:32 INR 1.9 05/20/18 08:32 APTT 34.6 Seconds (25.6-37.1) 05/15/18 04:42 - Constitutional Appears: No Acute Distress - Eye Exam Eye Exam: Scleral icterus - ENT Exam ENT Exam: Mucous Membranes Moist - Respiratory Exam Respiratory Exam: Clear to Ausculation Bilateral, NORMAL BREATHING PATTERN - Cardiovascular Exam Cardiovascular Exam: REGULAR RHYTHM, +S1, +S2 - GI/Abdominal Exam GI & Abdominal Exam: Soft, Normal Bowel Sounds. absent: Tenderness - Extremities Exam Extremities Exam: absent: Calf Tenderness, Pedal Edema, Tenderness - Neurological Exam Neurological Exam: Alert, Awake - Psychiatric Exam Psychiatric exam: Normal Affect - Skin Skin Exam: Dry, Intact, Warm Assessment and Plan - Assessment and Plan (Free Text) Assessment: Assessment: 54 y/o man w/ pmh of ETOH abuse, unwitnessed seizures, cirrhosis (s/p TIPS), hepatic encephalopathy admitted for GI bleed, anemia, sepsis, pneumonia, and hepatic encephalopathy. He was intubated for protection of airways and extubated on 05/17. GI bleed resolved, hemoglobin has been stable. Pt noted to have bacteremia growing VRE for which he is receiving IV antibiotics for. Inserted Picc line 05/20/2018. [facility] Plan: Bacteremia -Afebrile -Bcx (05/14)x2: Vancomycin Resistant E. Faecium -Bcx (05/17)x2: No growth in 24hrs -Ucx (05/12): No growth -Chest CT (05/14): 05/14 Bilateral multifocal pnu -Echo completed (05/19)- no vegetations seen -Tylenol PRN fever -C/W Linezolid per ID, Dr. Hernandez. Watch for agranulocytosis given pt's pancytopenia -C/W Zosyn for possible aspiration pneumonia Liver Cirrhosis -chronic, 2/2 to ETOH abuse -MELD's Score 13 -Zosyn covers for SBP Pancytopenia -chronic -likely 2/2 to ETOH abuse and cirrhosis -WBC 2.4, H 8.7, platelets 60 Alcohol Abuse -chronic -ETOH <10 on admission -CIWA 0 -C/W Librium 25po q8, CIWA protocol -Ativan 1mg PO q4hr PRN ETOH withdrawal -Monitor for signs of DT -Encouraged alcohol cessation Seizure Disorder -chronic, unwitnessed -C/W Keppra -Seizure precautions Diet -Regular Diet DVT prophylaxis -Lovenox not given 2/2 low platelets -c/w SCD for now PT/OT ordered for gait stability <Shasha Martino - Last Filed: 05/22/18 15:28> Objective - Vital Signs/Intake and Output Vital Signs (last 24 hours): Temp Pulse Resp BP Pulse Ox 97.8 F 69 20 121/71 97 05/22/18 08:08 05/22/18 08:08 05/22/18 08:08 05/22/18 08:08 05/22/18 08:08 - Medications Medications: Current Medications Acetaminophen (Tylenol 650 Mg Supp) 650 mg [place] Q6 PRN PRN Reason: Fever >100.4 F Acetaminophen (Tylenol 650mg/20.3ml Solution Ud) 650 mg PO Q6 PRN PRN Reason: Fever Last Admin: 05/15/18 00:18 Dose: 650 mg Chlordiazepoxide (Librium) 10 mg PO Q8 [facility] Last Admin: 05/22/18 08:36 Dose: 10 mg Levetiracetam 500 mg/ Sodium (Chloride) 105 mls @ 210 mls/hr IVPB Q12 [facility] Last Admin: 05/22/18 08:36 Dose: 210 mls/hr Linezolid (Zyvox 600mg/300ml D5w) 600 mg in 300 mls @ 300 mls/hr IVPB Q12H [facility]; Protocol Last Admin: 05/22/18 03:23 Dose: 300 mls/hr Piperacillin Sod/Tazobactam (Sod 3.375 gm/ Sodium Chloride) 100 mls @ 100 mls /hr IVPB Q6 [facility]; Protocol Last Admin: 05/22/18 09:02 Dose: 100 mls/hr Lactulose (Enulose) 20 gm NG DAILY [facility] Last Admin: 05/22/18 08:37 Dose: 20 gm Lorazepam (Ativan) 1 mg PO Q4 PRN PRN Reason: Agitation Ondansetron HCl (Zofran Inj) 4 mg IVP Q6 PRN PRN Reason: Nausea/Vomiting Pantoprazole Sodium (Protonix Ec Tab) 40 mg PO BID [facility] Last Admin: 05/22/18 08:37 Dose: 40 mg Thiamine HCl (Vitamin B1 Tab) 100 mg PO DAILY [facility] Last Admin: 05/22/18 08:37 Dose: 100 mg - Labs Labs: 05/22/18 05:25 05/22/18 05:25 PT 21.9 Seconds (9.8-13.1) H 05/20/18 08:32 INR 1.9 05/20/18 08:32 APTT 34.6 Seconds (25.6-37.1) 05/15/18 04:42 Attending/Attestation - Attestation I have personally seen and examined this patient.: Yes I have fully participated in the care of the patient.: Yes I have reviewed all pertinent clinical information, including history, physical exam and plan: Yes Notes (Text): 05/22/18 15:28 Seen examined and discussed with resident. Agree with findings and plan as above.
--- NOTE | 2018-05-22 13:39 | CP.PCM.PN ---
Subjective - Date & Time of Evaluation Date of Evaluation: 05/22/18 Time of Evaluation: 09:00 - Subjective Subjective: no fever less cough Objective - Vital Signs/Intake and Output Vital Signs (last 24 hours): Temp Pulse Resp BP Pulse Ox 97.8 F 69 20 121/71 97 05/22/18 08:08 05/22/18 08:08 05/22/18 08:08 05/22/18 08:08 05/22/18 08:08 - Medications Medications: Current Medications Acetaminophen (Tylenol 650 Mg Supp) 650 mg [place] Q6 PRN PRN Reason: Fever >100.4 F Acetaminophen (Tylenol 650mg/20.3ml Solution Ud) 650 mg PO Q6 PRN PRN Reason: Fever Last Admin: 05/15/18 00:18 Dose: 650 mg Chlordiazepoxide (Librium) 10 mg PO Q8 [facility] Last Admin: 05/22/18 08:36 Dose: 10 mg Levetiracetam 500 mg/ Sodium (Chloride) 105 mls @ 210 mls/hr IVPB Q12 [facility] Last Admin: 05/22/18 08:36 Dose: 210 mls/hr Linezolid (Zyvox 600mg/300ml D5w) 600 mg in 300 mls @ 300 mls/hr IVPB Q12H [facility]; Protocol Last Admin: 05/22/18 03:23 Dose: 300 mls/hr Piperacillin Sod/Tazobactam (Sod 3.375 gm/ Sodium Chloride) 100 mls @ 100 mls/hr IVPB Q6 [facility]; Protocol Last Admin: 05/22/18 09:02 Dose: 100 mls/hr Lactulose (Enulose) 20 gm NG DAILY [facility] Last Admin: 05/22/18 08:37 Dose: 20 gm Lorazepam (Ativan) 1 mg PO Q4 PRN PRN Reason: Agitation Ondansetron HCl (Zofran Inj) 4 mg IVP Q6 PRN PRN Reason: Nausea/Vomiting Pantoprazole Sodium (Protonix Ec Tab) 40 mg PO BID [facility] Last Admin: 05/22/18 08:37 Dose: 40 mg Thiamine HCl (Vitamin B1 Tab) 100 mg PO DAILY [facility] Last Admin: 05/22/18 08:37 Dose: 100 mg - Labs Labs: 05/22/18 05:25 05/22/18 05:25 PT 21.9 Seconds (9.8-13.1) H 05/20/18 08:32 INR 1.9 05/20/18 08:32 APTT 34.6 Seconds (25.6-37.1) 05/15/18 04:42 - Constitutional Appears: Non-toxic, Chronically Ill - Head Exam Head Exam: NORMOCEPHALIC - Eye Exam Eye Exam: absent: Scleral icterus - ENT Exam ENT Exam: Mucous Membranes Dry - Neck Exam Neck Exam: absent: Lymphadenopathy - Respiratory Exam Respiratory Exam: Decreased Breath Sounds - Cardiovascular Exam Cardiovascular Exam: REGULAR RHYTHM - GI/Abdominal Exam GI & Abdominal Exam: Distended, Soft, Hypoactive Bowel Sounds. absent: Tenderness - Rectal Exam Rectal Exam: Deferred - Exam Exam: NORMAL INSPECTION - Extremities Exam Extremities Exam: absent: Calf Tenderness, Pedal Edema - Back Exam Back Exam: absent: CVA tenderness (L), CVA tenderness (R) - Neurological Exam Neurological Exam: Alert, Awake, Oriented x3 Assessment and Plan (1) Acute blood loss anemia Status: Acute (2) Acute upper GI hemorrhage Status: Acute (3) Cirrhosis of liver Status: Acute (4) GI bleed Status: Acute (5) Pneumonia Status: Acute - Assessment and Plan (Free Text) Assessment: cont zyvox for VRE sepsis
[2018-05-23] MEDS: Piperacillin/Tazobact 3.375 GM in Sodium Chloride 0.9% 100 ML IVPB SCH ×4 (03:53→22:09)
[2018-05-23] MEDS: Linezolid 600 mg in D5W 300 ml 600 MG/300 ML BAG IVPB SCH ×2 (05:08→16:38)
[2018-05-23] MEDS: levETIRAcetam 500 MG in Sodium Chloride 0.9% 100 ML IVPB SCH ×2 (09:36→20:53)
[2018-05-23] MEDS: Pantoprazole 40 mg EC Tab PO SCH ×2 (09:37→16:38)
--- NOTE | 2018-05-23 10:35 | CP.PCM.PN ---
<Alondra Lombardo - Last Filed: 05/23/18 10:36> Subjective - Date & Time of Evaluation Date of Evaluation: 05/23/18 Time of Evaluation: 09:30 - Subjective Subjective: Patient seen and examined at bedside. Endorses having an appetite. Ambulates w/ support. Denies SOB, chest pain, n/v, cough, fevers. Patient charts labs, and nurse notes reviewed. Objective - Vital Signs/Intake and Output Vital Signs (last 24 hours): Temp Pulse Resp BP Pulse Ox 97.6 F 77 18 116/66 97 05/23/18 08:18 05/23/18 08:18 05/23/18 08:18 05/23/18 08:18 05/23/18 08:18 - Medications Medications: Current Medications Acetaminophen (Tylenol 650 Mg Supp) 650 mg [place] Q6 PRN PRN Reason: Fever >100.4 F Acetaminophen (Tylenol 650mg/20.3ml Solution Ud) 650 mg PO Q6 PRN PRN Reason: Fever Last Admin: 05/15/18 00:18 Dose: 650 mg Chlordiazepoxide (Librium) 10 mg PO Q8 [facility] Last Admin: 05/23/18 09:36 Dose: 10 mg Levetiracetam 500 mg/ Sodium (Chloride) 105 mls @ 210 mls/hr IVPB Q12 [facility] Last Admin: 05/23/18 09:36 Dose: 210 mls/hr Linezolid (Zyvox 600mg/300ml D5w) 600 mg in 300 mls @ 300 mls/hr IVPB Q12H [facility]; Protocol Last Admin: 05/23/18 05:08 Dose: 300 mls/hr Piperacillin Sod/Tazobactam (Sod 3.375 gm/ Sodium Chloride) 100 mls @ 100 mls/hr IVPB Q6 [facility]; Protocol Last Admin: 05/23/18 03:53 Dose: 100 mls/hr Lactulose (Enulose) 20 gm NG DAILY [facility] Last Admin: 05/23/18 09:37 Dose: 20 gm Lorazepam (Ativan) 1 mg PO Q4 PRN PRN Reason: Agitation Last Admin: 05/22/18 22:06 Dose: 1 mg Ondansetron HCl (Zofran Inj) 4 mg IVP Q6 PRN PRN Reason: Nausea/Vomiting Pantoprazole Sodium (Protonix Ec Tab) 40 mg PO BID [facility] Last Admin: 05/23/18 09:37 Dose: 40 mg Thiamine HCl (Vitamin B1 Tab) 100 mg PO DAILY [facility] Last Admin: 05/23/18 09:37 Dose: 100 mg - Labs Labs: 05/22/18 05:25 05/22/18 05:25 PT 21.9 Seconds (9.8-13.1) H 05/20/18 08:32 INR 1.9 05/20/18 08:32 APTT 34.6 Seconds (25.6-37.1) 05/15/18 04:42 Assessment and Plan - Assessment and Plan (Free Text) Assessment: 54 y/o man w/ pmh of ETOH abuse, unwitnessed seizures, cirrhosis (s/p TIPS), hepatic encephalopathy admitted for GI bleed, anemia, sepsis, pneumonia, and hepatic encephalopathy. He was intubated for protection of airways and extubated on 05/17. GI bleed resolved, hemoglobin has been stable. Pt noted to have bacteremia growing VRE for which he is receiving IV antibiotics for. Inserted Picc line 05/20/2018. Awaiting placement at [facility] Plan: Bacteremia -Afebrile -Bcx (05/14)x2: Vancomycin Resistant E. Faecium -Bcx (05/17)x2: No growth in 24hrs -Ucx (05/12): No growth -Chest CT (05/14): 05/14 Bilateral multifocal pnu -Echo completed (05/19)- no vegetations seen -Tylenol PRN fever -C/W Linezolid per ID, Dr. Hernandez. Watch for agranulocytosis given pt's pancytopenia -C/W Zosyn for possible aspiration pneumonia Liver Cirrhosis -chronic, 2/2 to ETOH abuse -MELD's Score 13 -Zosyn covers for SBP Pancytopenia -chronic -likely 2/2 to ETOH abuse and cirrhosis -WBC 2.4, H 8.7, platelets 60 Alcohol Abuse -chronic -ETOH <10 on admission -CIWA 0 -C/W Librium 25po q8, CIWA protocol -Ativan 1mg PO q4hr PRN ETOH withdrawal -Monitor for signs of DT -Encouraged alcohol cessation Seizure Disorder -chronic, unwitnessed -C/W Keppra -Seizure precautions Diet -Regular Diet DVT prophylaxis -Lovenox not given 2/2 low platelets -c/w SCD for now <LeiSandra Kelli - Last Filed: 05/23/18 15:01> Objective - Vital Signs/Intake and Output Vital Signs (last 24 hours): Temp Pulse Resp BP Pulse Ox 97.6 F 77 18 116/66 97 05/23/18 08:18 05/23/18 08:18 05/23/18 08:18 05/23/18 08:18 05/23/18 08:18 - Medications Medications: Current Medications Acetaminophen (Tylenol 650 Mg Supp) 650 mg [place] Q6 PRN PRN Reason: Fever >100.4 F Acetaminophen (Tylenol 650mg/20.3ml Solution Ud) 650 mg PO Q6 PRN PRN Reason: Fever Last Admin: 05/15/18 00:18 Dose: 650 mg Chlordiazepoxide (Librium) 10 mg PO Q8 [facility] Last Admin: 05/23/18 09:36 Dose: 10 mg Levetiracetam 500 mg/ Sodium (Chloride) 105 mls @ 210 mls/hr IVPB Q12 [facility] Last Admin: 05/23/18 09:36 Dose: 210 mls/hr Linezolid (Zyvox 600mg/300ml D5w) 600 mg in 300 mls @ 300 mls/hr IVPB Q12H [facility]; Protocol Last Admin: 05/23/18 05:08 Dose: 300 mls/hr Piperacillin Sod/Tazobactam (Sod 3.375 gm/ Sodium Chloride) 100 mls @ 100 mls/hr IVPB Q6 [facility]; Protocol Last Admin: 05/23/18 10:41 Dose: 100 mls/hr Lactulose (Enulose) 20 gm NG DAILY [facility] Last Admin: 05/23/18 09:37 Dose: 20 gm Lorazepam (Ativan) 1 mg PO Q4 PRN PRN Reason: Agitation Last Admin: 05/22/18 22:06 Dose: 1 mg Ondansetron HCl (Zofran Inj) 4 mg IVP Q6 PRN PRN Reason: Nausea/Vomiting Pantoprazole Sodium (Protonix Ec Tab) 40 mg PO BID [facility] Last Admin: 05/23/18 09:37 Dose: 40 mg Thiamine HCl (Vitamin B1 Tab) 100 mg PO DAILY [facility] Last Admin: 05/23/18 09:37 Dose: 100 mg - Labs Labs: 05/22/18 05:25 05/22/18 05:25 PT 21.9 Seconds (9.8-13.1) H 05/20/18 08:32 INR 1.9 05/20/18 08:32 APTT 34.6 Seconds (25.6-37.1) 05/15/18 04:42 Attending/Attestation - Attestation I have personally seen and examined this patient.: Yes I have fully participated in the care of the patient.: Yes I have reviewed all pertinent clinical information, including history, physical exam and plan: Yes Notes (Text): Sepsis ( POA) with VRE Bacteremia unclear etiology of infection, may be from Pneumonia vs UTI -rpt Blood c/s : negative -Plan to d/c pt to [facility] for 8 more days of IV Zyvox for VRE Bacteremia -ECHO ; neg for vegetation Respiratory Failure with Hypoxemia due to Pneumonia - resolved, pt extubated - completed IV abx - Zosyn, Zyvox Alcohol Cirrhosis Alcohol Withdrawal Seizure Dis Pancytopenia likely due to ETOH Deconditioning - PT consulted - rec [facility]
--- NOTE | 2018-05-23 21:31 | CP.PCM.PN ---
Subjective - Date & Time of Evaluation Date of Evaluation: 05/23/18 Time of Evaluation: 09:00 - Subjective Subjective: Clinically stable. Alert and oriented. No GI bleeding. Objective - Vital Signs/Intake and Output Vital Signs (last 24 hours): Temp Pulse Resp BP Pulse Ox 97.9 F 76 20 113/64 97 05/23/18 16:31 05/23/18 16:31 05/23/18 16:31 05/23/18 16:31 05/23/18 16:31 - Medications Medications: Current Medications Acetaminophen (Tylenol 650 Mg Supp) [address] Q6 PRN PRN Reason: Fever >100.4 F Acetaminophen (Tylenol 650mg/20.3ml Solution Ud) 650 mg PO Q6 PRN PRN Reason: Fever Last Admin: 05/15/18 00:18 Dose: 650 mg Levetiracetam 500 mg/ Sodium (Chloride) 105 mls @ 210 mls/hr IVPB Q12 [facility] Last Admin: 05/23/18 20:53 Dose: 210 mls/hr Linezolid (Zyvox 600mg/300ml D5w) 600 mg in 300 mls @ 300 mls/hr IVPB Q12H [facility]; Protocol Last Admin: 05/23/18 16:38 Dose: 300 mls/hr Piperacillin Sod/Tazobactam (Sod 3.375 gm/ Sodium Chloride) 100 mls @ 100 mls/hr IVPB Q6 [facility]; Protocol Last Admin: 05/23/18 15:07 Dose: 100 mls/hr Lactulose (Enulose) 20 gm NG DAILY [facility] Last Admin: 05/23/18 09:37 Dose: 20 gm Lorazepam (Ativan) 1 mg PO Q4 PRN PRN Reason: Agitation Last Admin: 05/23/18 19:10 Dose: 1 mg Ondansetron HCl (Zofran Inj) 4 mg IVP Q6 PRN PRN Reason: Nausea/Vomiting Pantoprazole Sodium (Protonix Ec Tab) 40 mg PO BID [facility] Last Admin: 05/23/18 16:38 Dose: 40 mg Thiamine HCl (Vitamin B1 Tab) 100 mg PO DAILY [facility] Last Admin: 05/23/18 09:37 Dose: 100 mg - Labs Labs: 05/22/18 05:25 05/22/18 05:25 PT 21.9 Seconds (9.8-13.1) H 05/20/18 08:32 INR 1.9 05/20/18 08:32 APTT 34.6 Seconds (25.6-37.1) 05/15/18 04:42 - Head Exam Head Exam: ATRAUMATIC - Eye Exam Eye Exam: Normal appearance - ENT Exam ENT Exam: Normal Exam - Neck Exam Neck Exam: Full ROM - Respiratory Exam Respiratory Exam: Clear to Ausculation Bilateral - Cardiovascular Exam Cardiovascular Exam: REGULAR RHYTHM - GI/Abdominal Exam GI & Abdominal Exam: Soft, Normal Bowel Sounds. absent: Tenderness Assessment and Plan (1) GI bleed Assessment & Plan: Hgb remains stable and no bleeding. On abx for VRE. Status: Acute (2) Cirrhosis of liver Status: Acute
[2018-05-24] MEDS: Piperacillin/Tazobact 3.375 GM in Sodium Chloride 0.9% 100 ML IVPB SCH ×4 (03:18→22:03)
[2018-05-24] MEDS: Linezolid 600 mg in D5W 300 ml 600 MG/300 ML BAG IVPB SCH ×2 (04:31→17:31)
--- NOTE | 2018-05-24 06:59 | CP.PCM.PN ---
Subjective - Date & Time of Evaluation Date of Evaluation: 05/24/18 Time of Evaluation: 06:58 Objective - Vital Signs/Intake and Output Vital Signs (last 24 hours): Temp Pulse Resp BP Pulse Ox 98.4 F 84 20 111/59 L 96 05/23/18 23:53 05/23/18 23:53 05/23/18 23:53 05/23/18 23:53 05/23/18 23:53 - Medications Medications: Current Medications Acetaminophen (Tylenol 650 Mg Supp) [address] Q6 PRN PRN Reason: Fever >100.4 F Acetaminophen (Tylenol 650mg/20.3ml Solution Ud) 650 mg PO Q6 PRN PRN Reason: Fever Last Admin: 05/15/18 00:18 Dose: 650 mg Levetiracetam 500 mg/ Sodium (Chloride) 105 mls @ 210 mls/hr IVPB Q12 [facility] Last Admin: 05/23/18 20:53 Dose: 210 mls/hr Linezolid (Zyvox 600mg/300ml D5w) 600 mg in 300 mls @ 300 mls/hr IVPB Q12H [facility]; Protocol Last Admin: 05/24/18 04:31 Dose: 300 mls/hr Piperacillin Sod/Tazobactam (Sod 3.375 gm/ Sodium Chloride) 100 mls @ 100 mls/hr IVPB Q6 [facility]; Protocol Last Admin: 05/24/18 03:18 Dose: 100 mls/hr Lactulose (Enulose) 20 gm NG DAILY [facility] Last Admin: 05/23/18 09:37 Dose: 20 gm Lorazepam (Ativan) 1 mg PO Q4 PRN PRN Reason: Agitation Last Admin: 05/24/18 00:21 Dose: 1 mg Ondansetron HCl (Zofran Inj) 4 mg IVP Q6 PRN PRN Reason: Nausea/Vomiting Pantoprazole Sodium (Protonix Ec Tab) 40 mg PO BID [facility] Last Admin: 05/23/18 16:38 Dose: 40 mg Thiamine HCl (Vitamin B1 Tab) 100 mg PO DAILY [facility] Last Admin: 05/23/18 09:37 Dose: 100 mg - Labs Labs: 05/22/18 05:25 05/22/18 05:25 PT 21.9 Seconds (9.8-13.1) H 05/20/18 08:32 INR 1.9 11/30/18 08:32 APTT 34.6 Seconds (25.6-37.1) 05/15/18 04:42
[2018-05-24] MEDS: levETIRAcetam 500 MG in Sodium Chloride 0.9% 100 ML IVPB SCH ×2 (08:58→20:58)
[2018-05-24] MEDS: Pantoprazole 40 mg EC Tab PO SCH ×2 (08:59→16:47)
--- NOTE | 2018-05-24 10:56 | CP.PCM.PN ---
Subjective - Date & Time of Evaluation Date of Evaluation: 05/24/18 Time of Evaluation: 10:00 - Subjective Subjective: improving slowly rx renewed Objective - Vital Signs/Intake and Output Vital Signs (last 24 hours): Temp Pulse Resp BP Pulse Ox 98.0 F 67 20 112/67 98 05/24/18 08:14 05/24/18 08:14 05/24/18 08:14 05/24/18 08:14 05/24/18 08:14 - Medications Medications: Current Medications Acetaminophen (Tylenol 650 Mg Supp) 650 mg [place] Q6 PRN PRN Reason: Fever >100.4 F Acetaminophen (Tylenol 650mg/20.3ml Solution Ud) 650 mg PO Q6 PRN PRN Reason: Fever Last Admin: 05/15/18 00:18 Dose: 650 mg Chlordiazepoxide (Librium) 10 mg PO BID [facility] Last Admin: 05/24/18 08:59 Dose: 10 mg Levetiracetam 500 mg/ Sodium (Chloride) 105 mls @ 210 mls/hr IVPB Q12 [facility]ANN[facility] Last Admin: 05/24/18 08:58 Dose: 210 mls/hr Linezolid (Zyvox 600mg/300ml D5w) 600 mg in 300 mls @ 300 mls/hr IVPB Q12H [facility]; Protocol Last Admin: 05/24/18 04:31 Dose: 300 mls/hr Piperacillin Sod/Tazobactam (Sod 3.375 gm/ Sodium Chloride) 100 mls @ 100 mls/hr IVPB Q6 [facility]; Protocol Last Admin: 05/24/18 10:01 Dose: 100 mls/hr Lactulose (Enulose) 20 gm NG DAILY [facility] Last Admin: 05/24/18 08:58 Dose: 20 gm Lorazepam (Ativan) 1 mg PO Q4 PRN PRN Reason: Agitation Last Admin: 05/24/18 10:00 Dose: 1 mg Ondansetron HCl (Zofran Inj) 4 mg IVP Q6 PRN PRN Reason: Nausea/Vomiting Pantoprazole Sodium (Protonix Ec Tab) 40 mg PO BID [facility] Last Admin: 05/24/18 08:59 Dose: 40 mg Thiamine HCl (Vitamin B1 Tab) 100 mg PO DAILY [facility] Last Admin: 05/24/18 08:59 Dose: 100 mg - Labs Labs: 05/22/18 05:25 12/02/18 05:25 PT 21.9 Seconds (9.8-13.1) H 05/20/18 08:32 INR 1.9 05/20/18 08:32 APTT 34.6 Seconds (25.6-37.1) 05/15/18 04:42 Assessment and Plan (1) Acute blood loss anemia Status: Acute (2) Acute upper GI hemorrhage Status: Acute (3) Cirrhosis of liver Status: Acute (4) GI bleed Status: Acute (5) Pneumonia Status: Acute
--- NOTE | 2018-05-24 12:54 | CP.PCM.DIS ---
<MuniraAlondra - Last Filed: 05/24/18 13:16> Provider - Provider Date of Admission: 05/13/18 02:39 Attending physician: Chong Cummins Consults: 05/13/18 03:35 Gastroenterology Consult Stat Comment: Consulting Provider: Elvin Swartz Consulting Physician: Elvin Swartz Reason for Consult: GI bleed 05/13/18 05:47 Psychiatry Consult Routine Comment: Consulting Provider: Stefan Damon Consulting Physician: Stefan Damon Reason for Consult: Depression/Daily at the ED/Daily Alcohol intoxication 05/13/18 05:48 Social Work Referral Routine Comment: Evaluate for shelter placement if possible Physician Instructions: Reason For Exam: Evaluate for shelter placement if possible 05/17/18 12:48 Infectious Disease Consult Routine Comment: Consulting Provider: Raul Hernandez Consulting Physician: Raul Hernandez Reason for Consult: VRE Bacteremia Time Spent in preparation of Discharge (in minutes): 35 Diagnosis - Discharge Diagnosis (1) Acute blood loss anemia Status: Resolved Priority: Low (2) Acute respiratory failure Status: Resolved Priority: Low (3) Acute upper GI hemorrhage Status: Resolved Priority: Low (4) Bacteremia Status: Acute Priority: Low (5) Cirrhosis of liver Status: Chronic Priority: Low Hospital Course - Lab Results Lab Results: Micro Results 05/20/18 05:35 Blood-Venous Blood Culture - Preliminary NO GROWTH AFTER 4 DAYS 05/20/18 05:25 Blood-Venous Blood Culture - Preliminary NO GROWTH AFTER 4 DAYS 05/17/18 15:06 Blood Blood Culture - Final NO GROWTH AFTER 5 DAYS 05/17/18 15:06 Blood Gram Stain - Final TEST NOT PERFORMED 05/17/18 15:06 Blood Blood Culture - Final NO GROWTH AFTER 5 DAYS 05/17/18 15:06 Blood Gram Stain - Final TEST NOT PERFORMED 05/19/18 17:50 Naris MRSA Culture (Admit) - Final MRSA NOT DETECTED 05/12/18 21:25 Blood Blood Culture - Final NO GROWTH AFTER 5 DAYS 05/12/18 21:25 Blood Gram Stain - Final TEST NOT PERFORMED 05/12/18 21:15 Blood Blood Culture - Final NO GROWTH AFTER 5 DAYS 05/12/18 21:15 Blood Gram Stain - Final TEST NOT PERFORMED 05/14/18 09:00 Trachasp Gram Stain - Final 05/14/18 09:00 Trachasp Sputum Culture - Final NORMAL ORAL HANNAH 05/14/18 20:00 Blood-Thru Central Line Blood Culture - Final Vancomycin Resistant E.faecium 05/14/18 20:00 Blood-Thru Central Line Gram Stain - Final 05/14/18 20:00 Blood-Thru Central Line S.aureus & Coag-Neg Staph PNA FISH - Final 05/14/18 20:00 Blood-Thru Central Line Blood Culture - Preliminary Vancomycin Resistant E.faecium 05/14/18 20:00 Blood-Thru Central Line Gram Stain - Final 05/14/18 00:53 Urine,Catheterized Urine Culture - Final No Growth (<1,000 CFU/ML) 05/12/18 22:40 Urine,Clean Catch Urine Culture - Final Gram Positive Cocci 05/13/18 11:11 Axilla MRSA Culture (Admit) - Final MRSA NOT DETECTED Most Recent Lab Values WBC 2.7 K/uL (4.8-10.8) L 05/22/18 05:25 RBC 2.95 Mil/uL (4.40-5.90) L 05/22/18 05:25 Hgb 8.4 g/dL (12.0-18.0) L 05/22/18 05:25 Hct 25.8 % (35.0-51.0) L 05/22/18 05:25 MCV 87.5 fl (80.0-94.0) 05/22/18 05:25 MCH 28.5 pg (27.0-31.0) 05/22/18 05:25 MCHC 32.5 g/dL (33.0-37.0) L 05/22/18 05:25 RDW 18.9 % (11.5-14.5) H 05/22/18 05:25 Plt Count 70 K/uL (130-400) L 05/22/18 05:25 MPV 7.3 fl (7.2-11.7) 05/18/18 04:50 Neut % (Auto) 63.8 % (50.0-75.0) 05/18/18 04:50 Lymph % (Auto) 18.1 % (20.0-40.0) L 05/18/18 04:50 Crawford % (Auto) 11.7 % (0.0-10.0) H 05/18/18 04:50 Eos % (Auto) 5.0 % (0.0-4.0) H 05/18/18 04:50 Baso % (Auto) 1.4 % (0.0-2.0) 05/18/18 04:50 Neut # (Auto) 1.9 K/uL (1.8-7.0) 05/18/18 04:50 Lymph # (Auto) 0.5 K/uL (1.0-4.3) L 05/18/18 04:50 [place] # (Auto) 0.4 K/uL (0.0-0.8) 05/18/18 04:50 Eos # (Auto) 0.2 K/uL (0.0-0.7) 05/18/18 04:50 Baso # (Auto) 0.0 K/uL (0.0-0.2) 05/18/18 04:50 Total Counted Cancelled 05/12/18 21:35 Neutrophils % (Manual) Cancelled 05/12/18 21:35 Band Neutrophils % Cancelled 05/12/18 21:35 Lymphocytes % (Manual) Cancelled 05/12/18 21:35 Reactive Lymphs % Cancelled 05/12/18 21:35 Monocytes % (Manual) Cancelled 05/12/18 21:35 Eosinophils % (Manual) Cancelled 05/12/18 21:35 Basophils % (Manual) Cancelled 05/12/18 21:35 Metamyelocytes % Cancelled 05/12/18 21:35 Myelocytes % Cancelled 05/12/18 21:35 Promyelocytes % Cancelled 05/12/18 21:35 Blast Cells % Cancelled 05/12/18 21:35 Plasma Cell % (Manual) Cancelled 05/12/18 21:35 Nucleated RBC % Cancelled 05/12/18 21:35 Hypersegmented Polys Cancelled 05/12/18 21:35 Smudge Cells Cancelled 05/12/18 21:35 Toxic Granulation Cancelled 05/12/18 21:35 Dohle Bodies Cancelled 05/12/18 21:35 Antonio Rods Cancelled 05/12/18 21:35 Platelet Estimate Cancelled 05/12/18 21:35 Plt Clumps, EDTA Cancelled 05/12/18 21:35 Large Platelets Cancelled 05/12/18 21:35 Giant Platelets Cancelled 05/12/18 21:35 RBC Morphology Cancelled 05/12/18 21:35 Polychromasia Cancelled 05/12/18 21:35 Hypochromasia (manual) Cancelled 05/12/18 21:35 Poikilocytosis (manual Cancelled 05/12/18 21:35 Basophilic Stippling Cancelled 05/12/18 21:35 Anisocytosis (manual) Cancelled 05/12/18 21:35 Microcytosis (manual) Cancelled 05/12/18 21:35 Macrocytosis (manual) Cancelled 05/12/18 21:35 Spherocytes Cancelled 05/12/18 21:35 Sickle Cells Cancelled 05/12/18 21:35 Target Cells Cancelled 05/12/18 21:35 Tear Drop Cells Cancelled 05/12/18 21:35 Ovalocytes Cancelled 05/12/18 21:35 Stomatocytes Cancelled 05/12/18 21:35 Helmet Cells Cancelled 05/12/18 21:35 [place] Bodies Cancelled 05/12/18 21:35 [place] Cells Cancelled 05/12/18 21:35 Acanthocytes (Spur) Cancelled 05/12/18 21:35 Rouleaux Cancelled 05/12/18 21:35 Schistocytes Cancelled 05/12/18 21:35 PT 21.9 Seconds (9.8-13.1) H 05/20/18 08:32 INR 1.9 05/20/18 08:32 APTT 34.6 Seconds (25.6-37.1) 05/15/18 04:42 pCO2 31 mm/Hg (35-45) L 05/18/18 03:56 pO2 101 mm/Hg (80-100) H 05/18/18 03:56 HCO3 24.2 mmol/L (21-28) 05/18/18 03:56 ABG pH 7.46 (7.35-7.45) H 05/18/18 03:56 ABG Total CO2 23.0 mmol/L (22-28) 05/18/18 03:56 ABG O2 Saturation 100.7 % (95-98) H 05/18/18 03:56 ABG O2 Content 11.2 ML/dL (15-23) L 05/16/18 05:02 ABG Base Excess -0.9 mmol/L (-2.0-3.0) 05/18/18 03:56 ABG Hemoglobin 8.0 g/dL (11.7-17.4) L 05/16/18 05:02 ABG Carboxyhemoglobin 0.5 % (0.5-1.5) 05/16/18 05:02 POC ABG HHb (Measured) 0.8 % (0.0-5.0) 05/16/18 05:02 ABG Methemoglobin 1.3 % (0.0-3.0) 05/16/18 05:02 ABG O2 Capacity 11.3 mL/dL (16-24) L 05/16/18 05:02 Jose Test Yes 05/18/18 03:56 ABG Potassium 2.9 mmol/L (3.6-5.2) L 05/18/18 03:56 VBG pH 7.49 (7.32-7.43) H 05/13/18 00:27 VBG pCO2 30 mmHg (40-60) L 05/13/18 00:27 VBG HCO3 25.1 mmol/L 05/13/18 00:27 VBG Total CO2 23.8 mmol/L (22-28) 05/13/18 00:27 VBG O2 Sat (Calc) 100.4 % (40-65) H 05/13/18 00:27 VBG Base Excess 0.4 mmol/L (0.0-2.0) 05/13/18 00:27 VBG Potassium 3.6 mmol/L (3.6-5.2) 05/13/18 00:27 A-a O2 Difference 145.0 mm/Hg 05/18/18 03:56 Hgb O2 Saturation 97.3 % (95.0-98.0) 05/16/18 05:02 Sodium 136.0 mmol/L (132-148) 05/18/18 03:56 Chloride 110.0 mmol/L (98-107) H 05/18/18 03:56 Glucose 142 mg/dL (75-110) H 05/18/18 03:56 Lactate 1.3 mmol/L (0.7-2.1) 05/18/18 03:56 Vent Mode Cpap 05/18/18 03:56 Mechanical Rate 12 05/17/18 04:32 FiO2 40.0 % 05/18/18 03:56 Tidal Volume 450 05/17/18 04:32 PEEP 5 05/17/18 04:32 Pressure Support 10 05/18/18 03:56 CPAP 5 05/18/18 03:56 Crit Value Called To Luke heaton 05/14/18 04:00 Crit Value Called By Darvin 05/14/18 04:00 Crit Value Read Back Y 05/14/18 04:00 Blood Gas Notified Time 434 05/14/18 04:00 Sodium 138 mmol/l (132-148) 05/22/18 05:25 Potassium 3.8 MMOL/L (3.6-5.0) 05/22/18 05:25 Chloride 109 mmol/L (98-107) H 05/22/18 05:25 Carbon Dioxide 21 mmol/L (22-30) L 05/22/18 05:25 Anion Gap 12 (10-20) 05/22/18 05:25 BUN 11 mg/dl (9-20) 05/22/18 05:25 Creatinine 0.5 mg/dl (0.8-1.5) L 05/22/18 05:25 Est GFR ( Amer) > 60 05/22/18 05:25 Est GFR (Non-Af Amer) > 60 05/22/18 05:25 POC Glucose (mg/dL) 96 mg/dL (65-110) 05/17/18 16:44 Random Glucose 92 mg/dL (75-110) 05/22/18 05:25 Calcium 7.4 mg/dL (8.4-10.2) L 05/22/18 05:25 Phosphorus 3.6 mg/dl (2.5-4.5) 05/19/18 04:20 Magnesium 1.6 MG/DL (1.6-2.3) 05/19/18 04:20 Total Bilirubin 2.1 mg/dl (0.2-1.3) H 05/19/18 04:20 AST 51 U/L (17-59) 05/19/18 04:20 ALT 34 U/L (21-72) 05/19/18 04:20 Alkaline Phosphatase 109 U/L (38-126) 05/19/18 04:20 Ammonia 27 umo/L (16-60) D 05/15/18 04:40 Total Protein 5.5 G/DL (6.3-8.2) L 05/19/18 04:20 Albumin 1.9 g/dL (3.5-5.0) L 05/19/18 04:20 Globulin 3.6 gm/dL (2.2-3.9) 05/19/18 04:20 Albumin/Globulin Ratio 0.5 (1.0-2.1) L 05/19/18 04:20 Lipase 154 U/L (23-300) 05/13/18 03:45 Arterial Blood Potassium 2.9 mmol/L (3.6-5.2) L 05/18/18 03:56 Venous Blood Potassium 3.6 mmol/L (3.6-5.2) 05/13/18 00:27 Urine Color [place] (YELLOW) 05/14/18 23:50 Urine Clarity Clear (Clear) 05/14/18 23:50 Urine pH 5.0 (5.0-8.0) 05/14/18 23:50 Ur Specific [place] 1.039 (1.003-1.030) H 05/14/18 23:50 Urine Protein Negative mg/dL (NEGATIVE) 05/14/18 23:50 Urine Glucose (UA) Neg mg/dL (Normal) 05/14/18 23:50 Urine Ketones Negative mg/dL (NEGATIVE) 05/14/18 23:50 Urine Blood Moderate (NEGATIVE) 05/14/18 23:50 Urine Nitrate Negative (NEGATIVE) 05/14/18 23:50 Urine Bilirubin Negative (NEGATIVE) 05/14/18 23:50 Urine Urobilinogen 2.0 mg/dL (0.2-1.0) 05/14/18 23:50 Ur Leukocyte Esterase Neg [place]/uL (Negative) 05/14/18 23:50 Urine RBC (Auto) 12 /hpf (0-3) H 05/14/18 23:50 Urine Microscopic WBC 1 /hpf (0-5) 05/14/18 23:50 Ur Squamous Epith Cells 1 /hpf (0-5) 05/12/18 22:40 Urine Bacteria Rare (<OCC) 05/14/18 23:50 Vancomycin Trough < 5.0 ug/mL (5.0-10.0) L 05/18/18 05:00 Alcohol, Quantitative < 10 mg/dl (0-10) 05/13/18 03:45 Influenza Typ A,B (EIA) Negative for flu a/b (NEGATIVE) 05/12/18 21:35 Blood Type O POSITIVE 05/13/18 03:45 Antibody Screen Negative 05/13/18 03:45 Crossmatch See Detail 05/13/18 03:45 BBK History Checked Patient has bt 05/13/18 03:45 - Hospital Course Hospital Course: 54 y/o man w/ pmh of ETOH abuse, unwitnessed seizures, cirrhosis (s/p TIPS), gastric and duodenal ulcer, hepatic encephalopathy admitted for GI bleed, anemia (hgb 6.0), sepsis, pneumonia, and hepatic encephalopathy. He was intubated for protection of airways and extubated on 05/17. GI was consulted; no indication for scope. Patient was transfused 3 units of leukocyte-reduced RBCs. GI bleed resolved, hemoglobin stabilized. Encephalopathy and hyperammonemia resoled w/ lacutlose treatment. Pt noted to have bacteremia growing VRE for which he received IV Zosyn 3.375g and Zyvox for 7 days. Repeat blood cultures negative x 4. Inserted Picc line 05/20/2018. Patient stable for [facility] to [facility] to cont IV Zyvox for 1 more week. Discharge Exam - Head Exam Head Exam: ATRAUMATIC Discharge Plan - Discharge Medications Prescriptions: RX: Linezolid 600 mg in NS 300 ml [Zyvox 600mg/300ml NS] 600 mg IV Q12 7 Days #14 iv.soln - Follow Up Plan Condition: SERIOUS Disposition: TRANSF TO SNF Instructions: Pneumonia, Adult (DC), Cirrhosis (DC), Sepsis (DC), Sepsis (GEN) Additional Instructions: follow up with dr Moreno at [facility] on may 26 at 11am Referrals: Cady Son MD [Family Provider] - Raul Hernandez MD [Staff Provider] - Elvin Swartz MD [Staff Provider] - <Sandra Lei - Last Filed: 05/25/18 14:18> Provider - Provider Date of Admission: 05/13/18 02:39 Attending physician: Chong Cummins Consults: 05/13/18 03:35 Gastroenterology Consult Stat Comment: Consulting Provider: Elvin Swartz Consulting Physician: Elvin Swartz Reason for Consult: GI bleed 05/13/18 05:47 Psychiatry Consult Routine Comment: Consulting Provider: Stefan Damon Consulting Physician: Stefan Damon Reason for Consult: Depression/Daily at the ED/Daily Alcohol intoxication 05/13/18 05:48 Social Work Referral Routine Comment: Evaluate for shelter placement if possible Physician Instructions: Reason For Exam: Evaluate for shelter placement if possible 05/17/18 12:48 Infectious Disease Consult Routine Comment: Consulting Provider: Raul Hernandez Consulting Physician: Raul Hernandez Reason for Consult: VRE Bacteremia Hospital Course - Lab Results Lab Results: Micro Results 05/20/18 05:35 Blood-Venous Blood Culture - Final NO GROWTH AFTER 5 DAYS 05/20/18 05:35 Blood-Venous Gram Stain - Final TEST NOT PERFORMED 05/20/18 05:25 Blood-Venous Blood Culture - Final NO GROWTH AFTER 5 DAYS 05/20/18 05:25 Blood-Venous Gram Stain - Final TEST NOT PERFORMED 05/17/18 15:06 Blood Blood Culture - Final NO GROWTH AFTER 5 DAYS 05/17/18 15:06 Blood Gram Stain - Final TEST NOT PERFORMED 05/17/18 15:06 Blood Blood Culture - Final NO GROWTH AFTER 5 DAYS 05/17/18 15:06 Blood Gram Stain - Final TEST NOT PERFORMED 05/19/18 17:50 Naris MRSA Culture (Admit) - Final MRSA NOT DETECTED 05/12/18 21:25 Blood Blood Culture - Final NO GROWTH AFTER 5 DAYS 05/12/18 21:25 Blood Gram Stain - Final TEST NOT PERFORMED 05/12/18 21:15 Blood Blood Culture - Final NO GROWTH AFTER 5 DAYS 05/12/18 21:15 Blood Gram Stain - Final TEST NOT PERFORMED 05/14/18 09:00 Trachasp Gram Stain - Final 05/14/18 09:00 Trachasp Sputum Culture - Final NORMAL ORAL HANNAH 05/14/18 20:00 Blood-Thru Central Line Blood Culture - Final Vancomycin Resistant E.faecium 05/14/18 20:00 Blood-Thru Central Line Gram Stain - Final 05/14/18 20:00 Blood-Thru Central Line S.aureus & Coag-Neg Staph PNA FISH - Final 05/14/18 20:00 Blood-Thru Central Line Blood Culture - Preliminary Vancomycin Resistant E.faecium 05/14/18 20:00 Blood-Thru Central Line Gram Stain - Final 05/14/18 00:53 Urine,Catheterized Urine Culture - Final No Growth (<1,000 CFU/ML) 05/12/18 22:40 Urine,Clean Catch Urine Culture - Final Gram Positive Cocci 05/13/18 11:11 Axilla MRSA Culture (Admit) - Final MRSA NOT DETECTED Most Recent Lab Values WBC 2.7 K/uL (4.8-10.8) L 05/22/18 05:25 RBC 2.95 Mil/uL (4.40-5.90) L 05/22/18 05:25 Hgb 8.4 g/dL (12.0-18.0) L 05/22/18 05:25 Hct 25.8 % (35.0-51.0) L 05/22/18 05:25 MCV 87.5 fl (80.0-94.0) 05/22/18 05:25 MCH 28.5 pg (27.0-31.0) 05/22/18 05:25 MCHC 32.5 g/dL (33.0-37.0) L 05/22/18 05:25 RDW 18.9 % (11.5-14.5) H 05/22/18 05:25 Plt Count 70 K/uL (130-400) L 05/22/18 05:25 MPV 7.3 fl (7.2-11.7) 05/18/18 04:50 Neut % (Auto) 63.8 % (50.0-75.0) 05/18/18 04:50 Lymph % (Auto) 18.1 % (20.0-40.0) L 05/18/18 04:50 Crawford % (Auto) 11.7 % (0.0-10.0) H 05/18/18 04:50 Eos % (Auto) 5.0 % (0.0-4.0) H 05/18/18 04:50 Baso % (Auto) 1.4 % (0.0-2.0) 05/18/18 04:50 Neut # (Auto) 1.9 K/uL (1.8-7.0) 05/18/18 04:50 Lymph # (Auto) 0.5 K/uL (1.0-4.3) L 05/18/18 04:50 Crawford # (Auto) 0.4 K/uL (0.0-0.8) 05/18/18 04:50 Eos # (Auto) 0.2 K/uL (0.0-0.7) 05/18/18 04:50 Baso # (Auto) 0.0 K/uL (0.0-0.2) 05/18/18 04:50 Total Counted Cancelled 05/12/18 21:35 Neutrophils % (Manual) Cancelled 05/12/18 21:35 Band Neutrophils % Cancelled 05/12/18 21:35 Lymphocytes % (Manual) Cancelled 05/12/18 21:35 Reactive Lymphs % Cancelled 05/12/18 21:35 Monocytes % (Manual) Cancelled 05/12/18 21:35 Eosinophils % (Manual) Cancelled 05/12/18 21:35 Basophils % (Manual) Cancelled 05/12/18 21:35 Metamyelocytes % Cancelled 05/12/18 21:35 Myelocytes % Cancelled 05/12/18 21:35 Promyelocytes % Cancelled 05/12/18 21:35 Blast Cells % Cancelled 05/12/18 21:35 Plasma Cell % (Manual) Cancelled 05/12/18 21:35 Nucleated RBC % Cancelled 05/12/18 21:35 Hypersegmented Polys Cancelled 05/12/18 21:35 Smudge Cells Cancelled 05/12/18 21:35 Toxic Granulation Cancelled 05/12/18 21:35 Dohle Bodies Cancelled 05/12/18 21:35 Antonio Rods Cancelled 05/12/18 21:35 Platelet Estimate Cancelled 05/12/18 21:35 Plt Clumps, EDTA Cancelled 05/12/18 21:35 Large Platelets Cancelled 05/12/18 21:35 Giant Platelets Cancelled 05/12/18 21:35 RBC Morphology Cancelled 05/12/18 21:35 Polychromasia Cancelled 05/12/18 21:35 Hypochromasia (manual) Cancelled 05/12/18 21:35 Poikilocytosis (manual Cancelled 05/12/18 21:35 Basophilic Stippling Cancelled 05/12/18 21:35 Anisocytosis (manual) Cancelled 05/12/18 21:35 Microcytosis (manual) Cancelled 05/12/18 21:35 Macrocytosis (manual) Cancelled 05/12/18 21:35 Spherocytes Cancelled 05/12/18 21:35 Sickle Cells Cancelled 05/12/18 21:35 Target Cells Cancelled 05/12/18 21:35 Tear Drop Cells Cancelled 05/12/18 21:35 Ovalocytes Cancelled 05/12/18 21:35 Stomatocytes Cancelled 05/12/18 21:35 Helmet Cells Cancelled 05/12/18 21:35 [place] Bodies Cancelled 05/12/18 21:35 Rayna Cells Cancelled 05/12/18 21:35 Acanthocytes (Spur) Cancelled 05/12/18 21:35 Rouleaux Cancelled 05/12/18 21:35 Schistocytes Cancelled 05/12/18 21:35 PT 21.9 Seconds (9.8-13.1) H 05/20/18 08:32 INR 1.9 05/20/18 08:32 APTT 34.6 Seconds (25.6-37.1) 05/15/18 04:42 pCO2 31 mm/Hg (35-45) L 05/18/18 03:56 pO2 101 mm/Hg (80-100) H 05/18/18 03:56 HCO3 24.2 mmol/L (21-28) 05/18/18 03:56 ABG pH 7.46 (7.35-7.45) H 05/18/18 03:56 ABG Total CO2 23.0 mmol/L (22-28) 05/18/18 03:56 ABG O2 Saturation 100.7 % (95-98) H 05/18/18 03:56 ABG O2 Content 11.2 ML/dL (15-23) L 05/16/18 05:02 ABG Base Excess -0.9 mmol/L (-2.0-3.0) 05/18/18 03:56 ABG Hemoglobin 8.0 g/dL (11.7-17.4) L 05/16/18 05:02 ABG Carboxyhemoglobin 0.5 % (0.5-1.5) 05/16/18 05:02 POC ABG HHb (Measured) 0.8 % (0.0-5.0) 05/16/18 05:02 ABG Methemoglobin 1.3 % (0.0-3.0) 05/16/18 05:02 ABG O2 Capacity 11.3 mL/dL (16-24) L 05/16/18 05:02 Jose Test Yes 05/18/18 03:56 ABG Potassium 2.9 mmol/L (3.6-5.2) L 05/18/18 03:56 VBG pH 7.49 (7.32-7.43) H 05/13/18 00:27 VBG pCO2 30 mmHg (40-60) L 05/13/18 00:27 VBG HCO3 25.1 mmol/L 05/13/18 00:27 VBG Total CO2 23.8 mmol/L (22-28) 05/13/18 00:27 VBG O2 Sat (Calc) 100.4 % (40-65) H 05/13/18 00:27 VBG Base Excess 0.4 mmol/L (0.0-2.0) 05/13/18 00:27 VBG Potassium 3.6 mmol/L (3.6-5.2) 05/13/18 00:27 A-a O2 Difference 145.0 mm/Hg 05/18/18 03:56 Hgb O2 Saturation 97.3 % (95.0-98.0) 05/16/18 05:02 Sodium 136.0 mmol/L (132-148) 05/18/18 03:56 Chloride 110.0 mmol/L (98-107) H 05/18/18 03:56 Glucose 142 mg/dL (75-110) H 05/18/18 03:56 Lactate 1.3 mmol/L (0.7-2.1) 05/18/18 03:56 Vent Mode Cpap 05/18/18 03:56 Mechanical Rate 12 05/17/18 04:32 FiO2 40.0 % 05/18/18 03:56 Tidal Volume 450 05/17/18 04:32 PEEP 5 05/17/18 04:32 Pressure Support 10 05/18/18 03:56 CPAP 5 05/18/18 03:56 Crit Value Called To Luke heaton 05/14/18 04:00 Crit Value Called By Darvin 05/14/18 04:00 Crit Value Read Back Y 05/14/18 04:00 Blood Gas Notified Time 434 05/14/18 04:00 Sodium 138 mmol/l (132-148) 05/22/18 05:25 Potassium 3.8 MMOL/L (3.6-5.0) 05/22/18 05:25 Chloride 109 mmol/L (98-107) H 05/22/18 05:25 Carbon Dioxide 21 mmol/L (22-30) L 05/22/18 05:25 Anion Gap 12 (10-20) 05/22/18 05:25 BUN 11 mg/dl (9-20) 05/22/18 05:25 Creatinine 0.5 mg/dl (0.8-1.5) L 05/22/18 05:25 Est GFR ( Amer) > 60 05/22/18 05:25 Est GFR (Non-Af Amer) > 60 05/22/18 05:25 POC Glucose (mg/dL) 96 mg/dL (65-110) 05/17/18 16:44 Random Glucose 92 mg/dL (75-110) 05/22/18 05:25 Calcium 7.4 mg/dL (8.4-10.2) L 05/22/18 05:25 Phosphorus 3.6 mg/dl (2.5-4.5) 05/19/18 04:20 Magnesium 1.6 MG/DL (1.6-2.3) 05/19/18 04:20 Total Bilirubin 2.1 mg/dl (0.2-1.3) H 05/19/18 04:20 AST 51 U/L (17-59) 05/19/18 04:20 ALT 34 U/L (21-72) 05/19/18 04:20 Alkaline Phosphatase 109 U/L (38-126) 05/19/18 04:20 Ammonia 27 umo/L (16-60) D 05/15/18 04:40 Total Protein 5.5 G/DL (6.3-8.2) L 05/19/18 04:20 Albumin 1.9 g/dL (3.5-5.0) L 05/19/18 04:20 Globulin 3.6 gm/dL (2.2-3.9) 05/19/18 04:20 Albumin/Globulin Ratio 0.5 (1.0-2.1) L 05/19/18 04:20 Lipase 154 U/L (23-300) 05/13/18 03:45 Arterial Blood Potassium 2.9 mmol/L (3.6-5.2) L 05/18/18 03:56 Venous Blood Potassium 3.6 mmol/L (3.6-5.2) 05/13/18 00:27 Urine Color [place] (YELLOW) 05/14/18 23:50 Urine Clarity Clear (Clear) 05/14/18 23:50 Urine pH 5.0 (5.0-8.0) 05/14/18 23:50 Ur Specific [place] 1.039 (1.003-1.030) H 05/14/18 23:50 Urine Protein Negative mg/dL (NEGATIVE) 05/14/18 23:50 Urine Glucose (UA) Neg mg/dL (Normal) 05/14/18 23:50 Urine Ketones Negative mg/dL (NEGATIVE) 05/14/18 23:50 Urine Blood Moderate (NEGATIVE) 05/14/18 23:50 Urine Nitrate Negative (NEGATIVE) 05/14/18 23:50 Urine Bilirubin Negative (NEGATIVE) 05/14/18 23:50 Urine Urobilinogen 2.0 mg/dL (0.2-1.0) 05/14/18 23:50 Ur Leukocyte Esterase Neg [place]/uL (Negative) 05/14/18 23:50 Urine RBC (Auto) 12 /hpf (0-3) H 05/14/18 23:50 Urine Microscopic WBC 1 /hpf (0-5) 05/14/18 23:50 Ur Squamous Epith Cells 1 /hpf (0-5) 05/12/18 22:40 Urine Bacteria Rare (<OCC) 05/14/18 23:50 Vancomycin Trough < 5.0 ug/mL (5.0-10.0) L 05/18/18 05:00 Alcohol, Quantitative < 10 mg/dl (0-10) 05/13/18 03:45 Influenza Typ A,B (EIA) Negative for flu a/b (NEGATIVE) 05/12/18 21:35 Blood Type O POSITIVE 05/13/18 03:45 Antibody Screen Negative 05/13/18 03:45 Crossmatch See Detail 05/13/18 03:45 BBK History Checked Patient has bt 05/13/18 03:45 Attending/Attestation - Attestation I have personally seen and examined this patient.: Yes I have fully participated in the care of the patient.: Yes I have reviewed all pertinent clinical information, including history, physical exam and plan: Yes Notes (Text): 1. Sepsis ( POA) with VRE Bacteremia unclear etiology of infection, may be from Pneumonia or UTI 2. Respiratory Failure with Hypoxemia due to Pneumonia 3. Upper GI Bleed likely due to Alcohol Gastritis and Michelle Nassar Tear 4. Acute Blood Loss Anemia from GI Bleed 5. Alcohol Cirrhosis 6 Alcohol Withdrawal 7.Seizure Dis 8. Pancytopenia likely due to ETOH 9. Physical Deconditioning -rpt Blood c/s : negative -d/c pt to [facility] for 6 more days of IV Zyvox for VRE Bacteremia -ECHO ; neg for vegetation - Physical therapy - H/H stable , no further GI bleeding episodes in the hospital - ff up [facility] after d/c from [facility]
--- NOTE | 2018-05-24 13:57 | VASCULAR ---
PROCEDURE: Date of procedure: Procedure: 1. Placement of a right arm PICC with ultrasound and fluoroscopic guidance, CPT 15400 2. PICC tip confirmation with spot radiograph and is in the superior vena cava Medications: 1 percent lidocaine Total Fluoro time: 2.3 Seconds Radiation: 0.26 MGy EBL: 2 cc HISTORY: Infection requiring long-term IV antibiotics TECHNIQUE: Following informed consent and procedure time-out, the patient was placed supine on the interventional table and the right arm prepped and draped in the usual sterile fashion. Ultrasound showed a patent and compressible right basilic vein. After the skin was anesthetized with lidocaine, the basilic vein was accessed with micro micropuncture technique using ultrasound guidance. A guidewire was then advanced under fluoroscopic guidance into the superior vena cava. An image documenting ultrasound guidance for vascular access was permanently saved. The length of the single-lumen 4 [place] PICC was trimmed to 35 centimeters and advanced through a peel-away sheath. The PICC was position with tip of PICC confirm a spot radiograph the superior vena cava. The PICC was secured to the patient's skin. The PICC was flushed. A biopatch and sterile dressing was applied. IMPRESSION: Placement of a single-lumen 4 [place] PICC trimmed to 35 centimeters via right basilic vein. The tip of the PICC is confirmed with spot radiograph and is in the superior vena cava.
[2018-05-25 00:54] VITALS: O2SAT 95
[2018-05-25] MEDS: Piperacillin/Tazobact 3.375 GM in Sodium Chloride 0.9% 100 ML IVPB SCH ×2 (03:01→10:13)
[2018-05-25] MEDS: Linezolid 600 mg in D5W 300 ml 600 MG/300 ML BAG IVPB SCH (04:14)
[2018-05-25] MEDS: Pantoprazole 40 mg EC Tab PO SCH (10:07)
[2018-05-25] MEDS: levETIRAcetam 500 MG in Sodium Chloride 0.9% 100 ML IVPB SCH (10:11)
--- NOTE | 2018-05-25 10:46 | CP.PCM.PN ---
<Alondra Lombardo - Last Filed: 05/25/18 10:54> Subjective - Date & Time of Evaluation Date of Evaluation: 05/25/18 Time of Evaluation: 10:44 - Subjective Subjective: Patient seen and examined at bedside. Denies any complaints at this time. He states that he wants to leave the hospital to get money from home. Patient understands that he needs to complete IV abx. Patient states he will not sign out AMA, and is amiable to going to [facility] Objective - Vital Signs/Intake and Output Vital Signs (last 24 hours): Temp Pulse Resp BP Pulse Ox 98.8 F 94 H 20 105/60 95 05/25/18 00:54 05/25/18 00:54 05/25/18 00:54 05/25/18 00:54 05/25/18 00:54 - Medications Medications: Current Medications Acetaminophen (Tylenol 650 Mg Supp) 650 mg UT Q6 PRN PRN Reason: Fever >100.4 F Acetaminophen (Tylenol 650mg/20.3ml Solution Ud) 650 mg PO Q6 PRN PRN Reason: Fever Last Admin: 05/15/18 00:18 Dose: 650 mg Chlordiazepoxide (Librium) 10 mg PO BID [facility] Last Admin: 05/25/18 10:07 Dose: 10 mg Levetiracetam 500 mg/ Sodium (Chloride) 105 mls @ 210 mls/hr IVPB Q12 [facility] Last Admin: 05/25/18 10:11 Dose: 210 mls/hr Linezolid (Zyvox 600mg/300ml D5w) 600 mg in 300 mls @ 300 mls/hr IVPB Q12H [facility]; Protocol Last Admin: 05/25/18 04:14 Dose: 300 mls/hr Piperacillin Sod/Tazobactam (Sod 3.375 gm/ Sodium Chloride) 100 mls @ 100 mls/hr IVPB Q6 [facility]; Protocol Last Admin: 05/25/18 10:13 Dose: 100 mls/hr Lactulose (Enulose) 20 gm NG DAILY [facility] Last Admin: 05/25/18 10:08 Dose: 20 gm Lorazepam (Ativan) 1 mg PO Q4 PRN PRN Reason: Agitation Last Admin: 05/25/18 10:07 Dose: 1 mg Ondansetron HCl (Zofran Inj) 4 mg IVP Q6 PRN PRN Reason: Nausea/Vomiting Pantoprazole Sodium (Protonix Ec Tab) 40 mg PO BID [facility] Last Admin: 05/25/18 10:07 Dose: 40 mg Thiamine HCl (Vitamin B1 Tab) 100 mg PO DAILY [facility] Last Admin: 05/25/18 10:08 Dose: 100 mg - Labs Labs: 05/22/18 05:25 05/22/18 05:25 PT 21.9 Seconds (9.8-13.1) H 05/20/18 08:32 INR 1.9 05/20/18 08:32 APTT 34.6 Seconds (25.6-37.1) 05/15/18 04:42 - Constitutional Appears: No Acute Distress - Respiratory Exam Respiratory Exam: Clear to Ausculation Bilateral, NORMAL BREATHING PATTERN - Cardiovascular Exam Cardiovascular Exam: +S1, +S2 - GI/Abdominal Exam GI & Abdominal Exam: Distended, Soft, Normal Bowel Sounds - Extremities Exam Extremities Exam: Normal Inspection. absent: Calf Tenderness - Neurological Exam Neurological Exam: Alert, Awake - Psychiatric Exam Psychiatric exam: Normal Affect - Skin Skin Exam: Dry, Normal Color, Warm Assessment and Plan (1) Acute blood loss anemia Status: Resolved (2) Acute respiratory failure Status: Resolved (3) Acute upper GI hemorrhage Status: Resolved (4) Bacteremia Status: Acute (5) Cirrhosis of liver Status: Chronic - Assessment and Plan (Free Text) Assessment: See previous day/s discharge summary Assessment: 54 y/o man w/ pmh of ETOH abuse, unwitnessed seizures, cirrhosis (s/p TIPS), hepatic encephalopathy admitted for GI bleed, anemia, sepsis, pneumonia, and hepatic encephalopathy. He was intubated for protection of airways and extubated on 05/17. GI bleed resolved, hemoglobin has been stable. Pt noted to have bacteremia growing VRE for which he is receiving IV antibiotics for. Inserted Picc line 05/20/2018. [facility] to continue IV abx Plan: Bacteremia -Afebrile -Bcx (05/14)x2: Vancomycin Resistant E. Faecium -Bcx (05/17)x2: No growth in 24hrs -Ucx (05/12): No growth -Chest CT (05/14): 05/14 Bilateral multifocal pnu -Echo completed (05/19)- no vegetations seen -Tylenol PRN fever -C/W Linezolid per ID, Dr. Hernandez. Watch for agranulocytosis given pt's pancytopenia; Day #8...will need 6 more days of rx -C/W Zosyn for possible aspiration pneumonia day #8 Liver Cirrhosis -chronic, 2/2 to ETOH abuse -MELD's Score 13 -Zosyn covers for SBP Pancytopenia -chronic -likely 2/2 to ETOH abuse and cirrhosis -WBC 2.4, H 8.7, platelets 60 Alcohol Abuse -chronic -ETOH <10 on admission -CIWA 0 -C/W Librium 25po q8, CIWA protocol -Ativan 1mg PO q4hr PRN ETOH withdrawal -Monitor for signs of DT -Encouraged alcohol cessation Seizure Disorder -chronic, unwitnessed -C/W Keppra -Seizure precautions Diet -Regular Diet DVT prophylaxis -Lovenox not given 2/2 low platelets -c/w SCD for now <Sandra Lei - Last Filed: 05/25/18 14:20> Objective - Vital Signs/Intake and Output Vital Signs (last 24 hours): Temp Pulse Resp BP Pulse Ox 98.8 F 94 H 20 105/60 95 05/25/18 00:54 05/25/18 00:54 05/25/18 00:54 05/25/18 00:54 05/25/18 00:54 - Medications Medications: Current Medications Acetaminophen (Tylenol 650 Mg Supp) 650 mg UT Q6 PRN PRN Reason: Fever >100.4 F Acetaminophen (Tylenol 650mg/20.3ml Solution Ud) 650 mg PO Q6 PRN PRN Reason: Fever Last Admin: 05/15/18 00:18 Dose: 650 mg Chlordiazepoxide (Librium) 10 mg PO BID [facility] Last Admin: 05/25/18 10:07 Dose: 10 mg Levetiracetam 500 mg/ Sodium (Chloride) 105 mls @ 210 mls/hr IVPB Q12 [facility] Last Admin: 05/25/18 10:11 Dose: 210 mls/hr Linezolid (Zyvox 600mg/300ml D5w) 600 mg in 300 mls @ 300 mls/hr IVPB Q12H [facility]; Protocol Last Admin: 05/25/18 04:14 Dose: 300 mls/hr Piperacillin Sod/Tazobactam (Sod 3.375 gm/ Sodium Chloride) 100 mls @ 100 mls/hr IVPB Q6 [facility]; Protocol Last Admin: 05/25/18 10:13 Dose: 100 mls/hr Lactulose (Enulose) 20 gm NG DAILY [facility] Last Admin: 05/25/18 10:08 Dose: 20 gm Lorazepam (Ativan) 1 mg PO Q4 PRN PRN Reason: Agitation Last Admin: 05/25/18 10:07 Dose: 1 mg Ondansetron HCl (Zofran Inj) 4 mg IVP Q6 PRN PRN Reason: Nausea/Vomiting Pantoprazole Sodium (Protonix Ec Tab) 40 mg PO BID [facility] Last Admin: 05/25/18 10:07 Dose: 40 mg Thiamine HCl (Vitamin B1 Tab) 100 mg PO DAILY [facility] Last Admin: 05/25/18 10:08 Dose: 100 mg - Labs Labs: 05/22/18 05:25 05/22/18 05:25 PT 21.9 Seconds (9.8-13.1) H 05/20/18 08:32 INR 1.9 05/20/18 08:32 APTT 34.6 Seconds (25.6-37.1) 05/15/18 04:42 Attending/Attestation - Attestation I have personally seen and examined this patient.: Yes I have fully participated in the care of the patient.: Yes I have reviewed all pertinent clinical information, including history, physical exam and plan: Yes Notes (Text): 05/25/18 14:19 1. Sepsis ( POA) with VRE Bacteremia unclear etiology of infection, may be from Pneumonia or UTI 2. Respiratory Failure with Hypoxemia due to Pneumonia 3. Upper GI Bleed likely due to Alcohol Gastritis and Michelle Nassar Tear 4. Acute Blood Loss Anemia from GI Bleed 5. Alcohol Cirrhosis 6 Alcohol Withdrawal 7.Seizure Dis 8. Pancytopenia likely due to ETOH 9. Physical Deconditioning -rpt Blood c/s : negative -d/c pt to [facility] for 6 more days of IV Zyvox for VRE Bacteremia -ECHO ; neg for vegetation - Physical therapy - H/H stable , no further GI bleeding episodes in the hospital -cont Keppra - ff up Clinic after d/c from [facility]
--- NOTE | 2018-05-25 12:56 | CP.PCM.PN ---
Subjective - Date & Time of Evaluation Date of Evaluation: 05/25/18 Time of Evaluation: 08:00 - Subjective Subjective: afeb nad Objective - Vital Signs/Intake and Output Vital Signs (last 24 hours): Temp Pulse Resp BP Pulse Ox 98.8 F 94 H 20 105/60 95 05/25/18 00:54 05/25/18 00:54 05/25/18 00:54 05/25/18 00:54 05/25/18 00:54 - Medications Medications: Current Medications Acetaminophen (Tylenol 650 Mg Supp) 650 mg NC Q6 PRN PRN Reason: Fever >100.4 F Acetaminophen (Tylenol 650mg/20.3ml Solution Ud) 650 mg PO Q6 PRN PRN Reason: Fever Last Admin: 05/15/18 00:18 Dose: 650 mg Chlordiazepoxide (Librium) 10 mg PO BID [facility] Last Admin: 05/25/18 10:07 Dose: 10 mg Levetiracetam 500 mg/ Sodium (Chloride) 105 mls @ 210 mls/hr IVPB Q12 [facility] Last Admin: 05/25/18 10:11 Dose: 210 mls/hr Linezolid (Zyvox 600mg/300ml D5w) 600 mg in 300 mls @ 300 mls/hr IVPB Q12H [facility]; Protocol Last Admin: 05/25/18 04:14 Dose: 300 mls/hr Piperacillin Sod/Tazobactam (Sod 3.375 gm/ Sodium Chloride) 100 mls @ 100 mls/hr IVPB Q6 [facility]; Protocol Last Admin: 05/25/18 10:13 Dose: 100 mls/hr Lactulose (Enulose) 20 gm NG DAILY [facility] Last Admin: 05/25/18 10:08 Dose: 20 gm Lorazepam (Ativan) 1 mg PO Q4 PRN PRN Reason: Agitation Last Admin: 05/25/18 10:07 Dose: 1 mg Ondansetron HCl (Zofran Inj) 4 mg IVP Q6 PRN PRN Reason: Nausea/Vomiting Pantoprazole Sodium (Protonix Ec Tab) 40 mg PO BID [facility] Last Admin: 05/25/18 10:07 Dose: 40 mg Thiamine HCl (Vitamin B1 Tab) 100 mg PO DAILY [facility] Last Admin: 05/25/18 10:08 Dose: 100 mg - Labs Labs: 05/22/18 05:25 12/02/18 05:25 PT 21.9 Seconds (9.8-13.1) H 05/20/18 08:32 INR 1.9 05/20/18 08:32 APTT 34.6 Seconds (25.6-37.1) 05/15/18 04:42 - Constitutional Appears: Non-toxic, Chronically Ill - Head Exam Head Exam: NORMOCEPHALIC - Eye Exam Eye Exam: absent: Scleral icterus - ENT Exam ENT Exam: Mucous Membranes Dry - Neck Exam Neck Exam: absent: Lymphadenopathy - Respiratory Exam Respiratory Exam: Decreased Breath Sounds - Cardiovascular Exam Cardiovascular Exam: REGULAR RHYTHM - GI/Abdominal Exam GI & Abdominal Exam: Distended, Soft - Rectal Exam Rectal Exam: Deferred - Exam Exam: NORMAL INSPECTION - Extremities Exam Extremities Exam: absent: Pedal Edema - Back Exam Back Exam: absent: CVA tenderness (L), CVA tenderness (R) - Neurological Exam Neurological Exam: Alert, Awake, Oriented x3 Assessment and Plan (1) Acute blood loss anemia Status: Resolved (2) Acute upper GI hemorrhage Status: Resolved (3) Cirrhosis of liver Status: Chronic (4) GI bleed Status: Acute (5) Pneumonia Status: Acute - Assessment and Plan (Free Text) Assessment: iv rx in prgoress follow up CXR
[2018-05-25 16:31] VITALS: BP 105/60; PULSE 94; RESP 20; TEMP 98.8
== END 2018-05-25 16:20 | DRG 584 ==
LOC: H.ER 20:47 → H.ERHOLD 05-13 02:39 → H.ICU/CCU 05-13 09:26 → H.MEDSURG1 05-19 18:45
PROVIDERS: ADMIT Internal Medicine; ATTEND Internal Medicine
PROC: 30243N1 Transfusion of Nonautologous Red Blood Cells into Central Vein, Percutaneous Approach (ICD-10-PCS; principal; 2018-05-13)
PROC: 5A1955Z Respiratory Ventilation, Greater than 96 Consecutive Hours (ICD-10-PCS; 2018-05-13)
PROC: 0BH17EZ Insertion of Endotracheal Airway into Trachea, Via Natural or Artificial Opening (ICD-10-PCS; 2018-05-13)
PROC: 06HM33Z Insertion of Infusion Device into Right Femoral Vein, Percutaneous Approach (ICD-10-PCS; 2018-05-13)
PROC: 3E0G76Z Introduction of Nutritional Substance into Upper GI, Via Natural or Artificial Opening (ICD-10-PCS; 2018-05-13)
PROC: 02HV33Z Insertion of Infusion Device into Superior Vena Cava, Percutaneous Approach (ICD-10-PCS; 2018-05-20)
DX: A41.81 Sepsis due to Enterococcus (principal); K72.90 Hepatic failure, unspecified without coma; J18.0 Bronchopneumonia, unspecified organism; J69.0 Pneumonitis due to inhalation of food and vomit; J96.01 Acute respiratory failure with hypoxia; K29.21 Alcoholic gastritis with bleeding; K22.6 Gastro-esophageal laceration-hemorrhage syndrome; F10.239 Alcohol dependence with withdrawal, unspecified; D62 Acute posthemorrhagic anemia; K70.30 Alcoholic cirrhosis of liver without ascites; D61.818 Other pancytopenia; N39.0 Urinary tract infection, site not specified; F10.231 Alcohol dependence with withdrawal delirium; G40.909 Epilepsy, unspecified, not intractable, without status epilepticus; K25.9 Gastric ulcer, unspecified as acute or chronic, without hemorrhage or perforation; E83.42 Hypomagnesemia; E72.20 Disorder of urea cycle metabolism, unspecified; Z59.0 Homelessness; Y90.0 Blood alcohol level of less than 20 mg/100 ml; Z16.21 Resistance to vancomycin; I85.10 Secondary esophageal varices without bleeding; F41.9 Anxiety disorder, unspecified; G89.29 Other chronic pain; I10 Essential (primary) hypertension; Z88.6 Allergy status to analgesic agent; Z74.01 Bed confinement status

== ENCOUNTER 2018-06-01 08:35 | Observation (INO) | payer MEDICAID ==
[2018-06-01 08:36] VITALS: BMI 23.7
[2018-06-01 11:13] LABS: BASO # 0.1 K/uL (0.0-0.2); EOS # 0.1 K/uL (0.0-0.7); MEAN CELL VOLUME 87.9 fl (80.0-94.0); MEAN CORPUSCULAR HEMOGLOBIN 28.1 pg (27.0-31.0); MEAN CORPUSCULAR HGB CONC 31.9 g/dL (33.0-37.0); MEAN PLATELET VOLUME 7.5 fl (7.2-11.7); NRBC % 0.2 % (0.0-0.0); PLATELET COUNT 44 K/uL (130-400); RBC 2.27 Mil/uL (4.40-5.90); RED CELL DISTRIBUTION WIDTH 19.4 % (11.5-14.5)
[2018-06-01 11:19] LABS: WHITE BLOOD COUNT 1.7 K/uL (4.8-10.8)
[2018-06-01 11:43] LABS: BASO % 3.3 % (0.0-2.0); EOS % 8.8 % (0.0-4.0); HEMOGLOBIN 6.4 g/dL (12.0-18.0); LYMPH % 22.9 % (20.0-40.0); MONO % 10.1 % (0.0-10.0); NEUT # 0.4 K/uL (1.8-7.0); NEUT % 54.9 % (50.0-75.0)
[2018-06-01 11:44] LABS: LYMPH # 0.4 K/uL (1.0-4.3); MONO # 0.2 K/uL (0.0-0.8)
[2018-06-01 11:54] LABS: ALB/GLOB RATIO 0.7 (1.0-2.1); ALBUMIN 2.5 g/dL (3.5-5.0); ALT/SGPT 32 U/L (21-72); AST/SGOT 50 U/L (17-59); BLOOD UREA NITROGEN 15 mg/dl (9-20); GFR NON-AFRICAN AMERICAN > 60
--- NOTE | 2018-06-01 12:06 | ED PDOC ---
HPI: General Adult Time Seen by Provider: 06/01/18 09:15 Chief Complaint (Nursing): Abnormal Labs Chief Complaint (Provider): Abnormal Labs History Per: Patient History/Exam Limitations: no limitations Onset/Duration Of Symptoms: Days (x1) Current Symptoms Are (Timing): Still Present Additional Complaint(s): 53 year old male, well known to this ER for multiple ED visits, sent from [facility] for evaluation of abnormal hemoglobin. Per records, patient's hemoglobin was noted to be 6.4. Patient denies any complaints at this time. Past Medical History Reviewed: Historical Data, Nursing Documentation, Vital Signs Vital Signs: Last Vital Signs Temp 98.5 F 06/01/18 08:40 Pulse 91 H 06/01/18 08:40 Resp 18 06/01/18 08:40 BP 104/57 L 06/01/18 08:40 Pulse Ox 93 L 06/01/18 08:40 - Medical History PMH: Anemia, Anxiety, Back Problems (herniated disc), Deep Vein Thrombosis, Fractures, Gastritis, Gall Bladder Disease (Cholelithiasis), HTN, Pancreatitis, Pneumonia, Seizures, Chronic Pain (left shoulder) Denies: CHF, HIV, Hypercholesterolemia, Chronic Kidney Disease, Sexually Transmitted Disease - Surgical History Surgical History: Endoscopy - Family History Family History: States: Unknown Family Hx - Social History Current smoker - smoking cessation education provided: Yes Alcohol: > 2 Drinks/Day Drugs: Denies - Immunization History Hx Tetanus Toxoid Vaccination: Yes Hx Influenza Vaccination: Yes Hx Pneumococcal Vaccination: Yes - Home Medications Home Medications: Ambulatory Orders Medication Instructions Recorded RX: Lactulose [Enulose] 10 gm PO BID #30 ml 04/09/18 RX: Folic Acid 1 mg PO DAILY #30 tab 05/10/18 Acetaminophen [Tylenol 325mg tab] 650 mg PO Q4 PRN 06/01/18 Acetaminophen [Tylenol 325mg tab] 650 mg PO Q4 PRN 06/01/18 Acidoph/L.bulg/Bif.b/S.thermop 1 tab PO DAILY 06/01/18 [Bacid Caplet] LORazepam [Ativan] 1 mg PO Q6 PRN 06/01/18 Omeprazole 40 mg PO BID 06/01/18 RX: Levetiracetam [Keppra] 500 mg PO Q12 06/01/18 RX: Linezolid [Zyvox] 600 mg PO Q12 06/01/18 RX: Vitamin B Complex [Super B-50 1 cap PO DAILY 06/01/18 Complex] - Allergies Allergies/Adverse Reactions: Allergies Allergy/AdvReac Type Severity Reaction Status Date / Time aspirin AdvReac GI Bleed Verified 05/12/18 21:04 ibuprofen [From Motrin] AdvReac GI Bleed Verified 05/12/18 21:04 naproxen AdvReac GI bleed Verified 05/12/18 21:04 NSAIDS (Non-Steroidal AdvReac GI bleed Verified 05/12/18 21:04 Anti-Inflamma Review of Systems ROS Statement: Except As Marked, All Systems Reviewed And Found Negative Physical Exam - Reviewed Nursing Documentation Reviewed: Yes Vital Signs Reviewed: Yes - Physical Exam Appears: Positive for: Non-toxic, No Acute Distress Head Exam: Positive for: ATRAUMATIC, NORMAL INSPECTION, NORMOCEPHALIC Skin: Positive for: Normal Color, Warm, DRY Eye Exam: Positive for: EOMI, Normal appearance, PERRL ENT: Positive for: Normal ENT Inspection Neck: Positive for: Normal, Painless ROM Cardiovascular/Chest: Positive for: Regular Rate, Rhythm Respiratory: Positive for: CNT, Normal Breath Sounds Gastrointestinal/Abdominal: Positive for: Normal Exam, Soft Back: Positive for: Normal Inspection Extremity: Positive for: Normal ROM Neurologic/Psych: Positive for: Alert, Oriented - Laboratory Results Result Diagrams: 06/01/18 10:52 06/01/18 10:52 - ECG O2 Sat by Pulse Oximetry: 93 (RA) Medical Decision Making Medical Decision Making: Plan: sent for abnormal bloodwork, rule out anemia -Blood type and screen -CBC -CMP -Reevaluation Blood work reviewed and patient found to be anemic. Patient will be transfused. ordered guiac stool. pt observed to have brown stool. Case discussed with Dr. Sierra Martino, hospitalist. Patient to be admitted. Patient signed consent form for blood transfusion. Scribe Attestation: Documented by Emmanuel Mcgarry, acting as a scribe for Amanda Washington MD. Provider Scribe Attestation: All medical record entries made by the Scribe were at my direction and personally dictated by me. I have reviewed the chart and agree that the record accurately reflects my personal performance of the history, physical exam, medical decision making, and the department course for this patient. I have also personally directed, reviewed, and agree with the discharge instructions and disposition. Disposition - Clinical Impression Clinical Impression: Anemia - Patient ED Disposition Is Patient to be Admitted: Yes Counseled Patient/Family Regarding: Studies Performed, Diagnosis - Disposition Disposition Time: 12:00 Condition: STABLE - Pt Status Changed To: Hospital Disposition Of: Inpatient - Admit Certification Admit to Inpatient:: After my assessment, the patient will require hospitalization for at least two midnights. This is because of the severity of symptoms shown, intensity of services needed, and/or the medical risk in this patient being treated as an outpatient.
[2018-06-01 12:26] LABS: EOSINOPHIL 9 % (0-7); LYMPHOCYTE 26 % (20-50); MONOCYTE 3 % (0-10); NEUTROPHIL 62 % (42-75); TOTAL CELLS COUNTED 100
[2018-06-01 12:31] LABS: ANISOCYTOSIS SLIGHT
[2018-06-01 12:34] LABS: HYPOCHROMIC MODERATE; SCHISTOCYTES SLIGHT
[2018-06-01 12:36] LABS: PLATELET ESTIMATE DECREASED (NORMAL)
--- NOTE | 2018-06-01 14:28 | CP.PCM.HP ---
History of Present Illness - History of Present Illness History of Present Illness: 54 y/o man w/ pmh of ETOH abuse, unwitnessed seizures, cirrhosis (s/p TIPS), gastric and duodenal ulcer, hepatic encephalopathy came from [facility] due to hgb of 6.4. Patient denies hematemesis/hematochezia. Denies n/v/abdominal pain. Patient is a limited historian. History obtained from charts. PMD: none PMHx: ETOH abuse, unwitnessed seizures, cirrhosis (s/p TIPS), hepatic encephalopathy, esophageal varices, chronic pancytopenia Surgical hx: TIPs in 2014 Social hx: smoker; 3 cigarettes a day, 1.5 ppd previously, etoh abuse Family hx: father [place], mother smoker and of lung cancer, sister diagnosed with colon cancer, recently mild-2018 Allergies: asprin, ibuprofen, naproxen, NSAIDs (nausea for all of them) HomeRx: Keppra 500mg PO BID Next of Kin: [facility] [phone] Code status: Ful code Present on Admission - Present on Admission Any Indicators Present on Admission: No History of DVT/PE: No Urinary Catheter: No Review of Systems - Constitutional Constitutional: absent: Fatigue - Cardiovascular Cardiovascular: absent: Chest Pain - Respiratory Respiratory: absent: Hemoptysis - Gastrointestinal Gastrointestinal: absent: Abdominal Pain, Hematemesis, Hematochezia, Nausea, Vomiting - Genitourinary Genitourinary: absent: Hematuria - Integumentary Integumentary: absent: Bleeding Lesions Past Patient History - Infectious Disease Hx of Infectious Diseases: None - Tetanus Immunizations Tetanus Immunization: Unknown - Past Medical History & Family History Past Medical History?: Yes - Past Social History Smoking Status: Light Smoker < 10 Cigarettes Daily - CARDIAC Hx Congestive Heart Failure: No Hx Hypercholesterolemia: No Hx Hypertension: Yes - PULMONARY Hx Pneumonia: Yes - NEUROLOGICAL Hx Seizures: Yes - HEENT Hx HEENT Problems: No - RENAL Hx Chronic Kidney Disease: No - ENDOCRINE/METABOLIC Hx Endocrine Disorders: No - HEMATOLOGICAL/ONCOLOGICAL Hx Anemia: Yes Hx Human Immunodeficiency Virus (HIV): No - INTEGUMENTARY Hx Dermatological Problems: Yes - MUSCULOSKELETAL/RHEUMATOLOGICAL Hx Fractures: Yes - GASTROINTESTINAL Hx Gall Bladder Disease: Yes (Cholelithiasis) Hx Gastritis: Yes Hx Pancreatitis: Yes - GENITOURINARY/GYNECOLOGICAL Hx Sexually Transmitted Disorders: No - PSYCHIATRIC Hx Anxiety: Yes - SURGICAL HISTORY Hx Surgeries: Yes - ANESTHESIA Hx Anesthesia: Yes Hx Anesthesia Reactions: No Hx Malignant Hyperthermia: No Meds Allergies/Adverse Reactions: Allergies Allergy/AdvReac Type Severity Reaction Status Date / Time aspirin AdvReac GI Bleed Verified 05/12/18 21:04 ibuprofen [From Motrin] AdvReac GI Bleed Verified 05/12/18 21:04 naproxen AdvReac GI bleed Verified 05/12/18 21:04 NSAIDS (Non-Steroidal AdvReac GI bleed Verified 05/12/18 21:04 Anti-Inflamma Physical Exam - Constitutional Appears: Older Than Stated Age - Eye Exam Eye Exam: PERRL, Scleral icterus - ENT Exam ENT Exam: Mucous Membranes Moist - Respiratory Exam Respiratory Exam: Clear to Auscultation Bilateral, NORMAL BREATHING PATTERN - Cardiovascular Exam Cardiovascular Exam: REGULAR RHYTHM, +S1, +S2 - GI/Abdominal Exam GI & Abdominal Exam: Distended, Normal Bowel Sounds, Soft. absent: Firm, Guarding, Rigid, Tenderness - Neurological Exam Neurological exam: Alert, Oriented x3 Results - Vital Signs Recent Vital Signs: Last Vital Signs Temp 99.3 F 06/01/18 14:18 Pulse 82 06/01/18 14:18 Resp 18 06/01/18 14:18 BP 105/64 06/01/18 14:18 Pulse Ox 97 06/01/18 14:18 - Labs Result Diagrams: 06/01/18 10:52 06/01/18 10:52 Labs: Laboratory Results - last 24 hr 06/01/18 06/01/18 06/01/18 10:52 10:52 10:52 WBC 1.7 L* RBC 2.27 L Hgb 6.4 L* D Hct 20.0 L MCV 87.9 MCH 28.1 MCHC 31.9 L RDW 19.4 H Plt Count 44 L D MPV 7.5 Neut % (Auto) 54.9 Lymph % (Auto) 22.9 [place] % (Auto) 10.1 H Eos % (Auto) 8.8 H Baso % (Auto) 3.3 H Neut # (Auto) 0.4 L Lymph # (Auto) 0.4 L [place] # (Auto) 0.2 Eos # (Auto) 0.1 Baso # (Auto) 0.1 Neutrophils % (Manual) 62 Lymphocytes % (Manual) 26 Monocytes % (Manual) 3 Eosinophils % (Manual) 9 H Platelet Estimate Decreased L Hypochromasia (manual) Moderate Anisocytosis (manual) Slight Schistocytes Slight Sodium 138 Potassium 4.2 Chloride 109 H Carbon Dioxide 22 Anion Gap 11 BUN 15 Creatinine 0.6 L Est GFR ( Amer) > 60 Est GFR (Non-Af Amer) > 60 Random Glucose 87 Calcium 8.0 L Total Bilirubin 1.4 H AST 50 ALT 32 Alkaline Phosphatase 138 H D Total Protein 6.3 Albumin 2.5 L D Globulin 3.8 Albumin/Globulin Ratio 0.7 L Blood Type O POSITIVE Antibody Screen Negative Crossmatch See Detail BBK History Checked Patient has bt Assessment & Plan - Assessment and Plan (Free Text) Assessment: 54 y/o man w/ pmh of ETOH abuse, unwitnessed seizures, cirrhosis (s/p TIPS), gastric and duodenal ulcers, and hx of hepatic encephalopathy came from [facility] due to hgb of 6.4. Anemia Admit patient to [facility] for observation hgb 6.4 Type and cross Transfuse 2 units PRBC f/u CBC 4 hours after transfusion F/u retic ct, PT, PTT in AM Pancytopenia Chronic Will monitor Hx of Etoh abuse [facility] protocol in place B12 and thiamine ordered GI prophylaxis: Protonix 40mg PO QD DVT prophylaxis: Not a candidate for Lovenox SCDs Code status Full code Decision To Admit - Pt Status Changed To: Hospital Disposition Of: Observation - . Bed Request Type: Med/Surg Admitting Physician: Shasha Martino
[2018-06-02 06:20] LABS: BLOOD UREA NITROGEN 15 mg/dl (9-20); GFR NON-AFRICAN AMERICAN > 60
[2018-06-02 06:26] LABS: BASO % 1.8 % (0.0-2.0); EOS # 0.2 K/uL (0.0-0.7); EOS % 9.3 % (0.0-4.0); HEMOGLOBIN 7.9 g/dL (12.0-18.0); LYMPH # 0.5 K/uL (1.0-4.3); LYMPH % 22.3 % (20.0-40.0); MEAN CELL VOLUME 88.1 fl (80.0-94.0); MEAN CORPUSCULAR HEMOGLOBIN 28.6 pg (27.0-31.0); MEAN CORPUSCULAR HGB CONC 32.4 g/dL (33.0-37.0); MEAN PLATELET VOLUME 7.5 fl (7.2-11.7); MONO # 0.2 K/uL (0.0-0.8); MONO % 11.5 % (0.0-10.0); NEUT # 1.2 K/uL (1.8-7.0); NEUT % 55.1 % (50.0-75.0); NRBC % 0.1 % (0.0-0.0); RBC 2.78 Mil/uL (4.40-5.90); RED CELL DISTRIBUTION WIDTH 18.9 % (11.5-14.5); WHITE BLOOD COUNT 2.1 K/uL (4.8-10.8)
[2018-06-02 06:29] LABS: INR 1.7; PROTHROMBIN TIME 19.5 Seconds (9.8-13.1)
[2018-06-02 06:31] LABS: PARTIAL THROMBOPLASTIN TIME 40.3 Seconds (25.6-37.1)
[2018-06-02] MEDS ORDERED: Pantoprazole 40 MG in Sodium Chloride 0.9% 100 ML IVPB SCH (08:15)
[2018-06-02] MEDS ORDERED: Pantoprazole 40 mg EC Tab PO SCH (09:00)
[2018-06-02] MEDS ORDERED: Influenza Vaccine (5 YR UP)/PF 60 MCG/0.5 ML SYR IM ONE (09:00)
[2018-06-02 09:10] VITALS: BP 136/74; PULSE 75; RESP 20; TEMP 97.1; O2SAT 98
--- NOTE | 2018-06-02 14:20 | CP.PCM.PCO ---
Assessment/Plan - Assessment and Plan (Free Text) Assessment: Procedure Note 53 y/o male w/ pmh of etoh abuse, cirrhosis, and recent hx of bactermia had PICC line inserted for IV abx at [facility]. IV abx treatment completed. Plan: Right right basilic vein PICC Line Removal: Procedure was explained to patient Patient was placed in supine position. The dressing was removed from the PICC line. PICC line was removed, 35 cm. Tip visualized, intact. Pressure was held at the site. Hemostasis was achieved. A pressure dressing was applied. No immediate complications.
--- NOTE | 2018-06-02 14:22 | CP.PCM.DIS ---
Provider - Provider Date of Admission: 06/01/18 12:17 Attending physician: Shasha Martino DO Consults: 06/02/18 08:03 Gastroenterology Consult Routine Comment: Consulting Provider: Elvin Swartz Consulting Physician: Elvin Swartz Reason for Consult: suspected GI bleeding Time Spent in preparation of Discharge (in minutes): 35 Diagnosis - Discharge Diagnosis (1) Alcoholism Status: Chronic Priority: Low (2) Anemia Status: Acute Priority: Low (3) Seizure disorder Status: Chronic Priority: Low (4) Pancytopenia Status: Chronic Priority: Low Hospital Course - Lab Results Lab Results: Most Recent Lab Values WBC 2.1 K/uL (4.8-10.8) L 06/02/18 05:55 RBC 2.78 Mil/uL (4.40-5.90) L 06/02/18 05:55 Hgb 7.9 g/dL (12.0-18.0) L 06/02/18 05:55 Hct 24.5 % (35.0-51.0) L 06/02/18 05:55 MCV 88.1 fl (80.0-94.0) 06/02/18 05:55 MCH 28.6 pg (27.0-31.0) 06/02/18 05:55 MCHC 32.4 g/dL (33.0-37.0) L 06/02/18 05:55 RDW 18.9 % (11.5-14.5) H 06/02/18 05:55 Plt Count 48 K/uL (130-400) L 06/02/18 05:55 Manual Plt Count 142 K/uL (130-400) 06/02/18 05:55 MPV 7.5 fl (7.2-11.7) 06/02/18 05:55 Neut % (Auto) 55.1 % (50.0-75.0) 06/02/18 05:55 Lymph % (Auto) 22.3 % (20.0-40.0) 06/02/18 05:55 [place] % (Auto) 11.5 % (0.0-10.0) H 06/02/18 05:55 Eos % (Auto) 9.3 % (0.0-4.0) H 06/02/18 05:55 Baso % (Auto) 1.8 % (0.0-2.0) 06/02/18 05:55 Neut # (Auto) 1.2 K/uL (1.8-7.0) L 06/02/18 05:55 Lymph # (Auto) 0.5 K/uL (1.0-4.3) L 06/02/18 05:55 [place] # (Auto) 0.2 K/uL (0.0-0.8) 06/02/18 05:55 Eos # (Auto) 0.2 K/uL (0.0-0.7) 06/02/18 05:55 Baso # (Auto) 0.0 K/uL (0.0-0.2) 06/02/18 05:55 Neutrophils % (Manual) 62 % (42-75) 06/01/18 10:52 Lymphocytes % (Manual) 26 % (20-50) 06/01/18 10:52 Monocytes % (Manual) 3 % (0-10) 06/01/18 10:52 Eosinophils % (Manual) 9 % (0-7) H 06/01/18 10:52 Platelet Estimate Decreased (NORMAL) L 06/01/18 10:52 Hypochromasia (manual) Moderate 06/01/18 10:52 Anisocytosis (manual) Slight 06/01/18 10:52 Schistocytes Slight 06/01/18 10:52 Retic Count 0.2 % (0.5-1.5) L D 06/02/18 05:55 PT 19.5 Seconds (9.8-13.1) H 06/02/18 05:55 INR 1.7 06/02/18 05:55 APTT 40.3 Seconds (25.6-37.1) H 06/02/18 05:55 Sodium 137 mmol/l (132-148) 06/02/18 05:55 Potassium 4.8 MMOL/L (3.6-5.0) 06/02/18 05:55 Chloride 109 mmol/L (98-107) H 06/02/18 05:55 Carbon Dioxide 20 mmol/L (22-30) L 06/02/18 05:55 Anion Gap 13 (10-20) 06/02/18 05:55 BUN 15 mg/dl (9-20) 06/02/18 05:55 Creatinine 0.6 mg/dl (0.8-1.5) L 06/02/18 05:55 Est GFR ( Amer) > 60 06/02/18 05:55 Est GFR (Non-Af Amer) > 60 06/02/18 05:55 Random Glucose 104 mg/dL (75-110) 06/02/18 05:55 Calcium 8.0 mg/dL (8.4-10.2) L 06/02/18 05:55 Total Bilirubin 1.4 mg/dl (0.2-1.3) H 06/01/18 10:52 AST 50 U/L (17-59) 06/01/18 10:52 ALT 32 U/L (21-72) 06/01/18 10:52 Alkaline Phosphatase 138 U/L (38-126) H D 06/01/18 10:52 Total Protein 6.3 G/DL (6.3-8.2) 06/01/18 10:52 Albumin 2.5 g/dL (3.5-5.0) L D 06/01/18 10:52 Globulin 3.8 gm/dL (2.2-3.9) 06/01/18 10:52 Albumin/Globulin Ratio 0.7 (1.0-2.1) L 06/01/18 10:52 Stool Occult Blood Positive (NEGATIVE) H 06/01/18 17:45 Blood Type O POSITIVE 06/01/18 10:52 Antibody Screen Negative 06/01/18 10:52 Crossmatch See Detail 06/01/18 10:52 BBK History Checked Patient has bt 06/01/18 10:52 - Hospital Course Hospital Course: 54 y/o man w/ pmh of ETOH abuse, unwitnessed seizures, cirrhosis (s/p TIPS), gastric and duodenal ulcer, hepatic encephalopathy came from [facility] due to hgb of 6.4. Patient denies hematemesis/hematochezia. Hgb 7.9 s/p 2 units of PRBCs. Stool occult blood positive. GI consulted. Patient signed out AMA before further evaluation and intervention. Patient informed and verbalized understanding of dangers of leaving AMA, such as worsening of condition and . Discharge Exam - Head Exam Head Exam: ATRAUMATIC, NORMAL INSPECTION, NORMOCEPHALIC - Eye Exam Eye Exam: Scleral icterus - Respiratory Exam Respiratory Exam: Clear to PA & Lateral, NORMAL BREATHING PATTERN, UNREMARKABLE - Cardiovascular Exam Cardiovascular Exam: REGULAR RHYTHM, +S1, +S2 - GI/Abdominal Exam GI & Abdominal Exam: Distended, Normal Bowel Sounds, Soft. absent: Firm, Guarding, Tenderness - Neurological Exam Neurological exam: Alert, Normal Gait, Oriented x3 - Psychiatric Exam Psychiatric exam: Normal Affect Discharge Plan - Follow Up Plan Condition: STABLE Disposition: AGAINST MEDICAL ADVICE Instructions: Normocytic Normochromic Anemia
== END 2018-06-02 12:20 | disposition left against medical advice (07) ==
LOC: H.ER 08:35 → H.ERHOLD 12:17 → H.MEDSURG1 21:20
PROVIDERS: ADMIT Student in an Organized Health Care Education/Training Program; ATTEND Student in an Organized Health Care Education/Training Program
DX: F10.20 Alcohol dependence, uncomplicated (principal); D61.818 Other pancytopenia; K70.30 Alcoholic cirrhosis of liver without ascites; G40.909 Epilepsy, unspecified, not intractable, without status epilepticus; R19.5 Other fecal abnormalities; Z88.6 Allergy status to analgesic agent; F41.9 Anxiety disorder, unspecified; K29.70 Gastritis, unspecified, without bleeding; I10 Essential (primary) hypertension; G89.29 Other chronic pain; F17.210 Nicotine dependence, cigarettes, uncomplicated; Y90.9 Presence of alcohol in blood, level not specified
CPT/HCPCS: 36415; 36430; 80048; 80053; 85025; 85044; 85610; 85730; 86850; 86900; 86920; 86921; 86922; 96374; 99285; C9113; G0328; G0378; J2060; P9051

== ENCOUNTER 2018-06-02 15:36 | Emergency (ER) | payer MEDICAID ==
[2018-06-02 15:36] VITALS: BMI 23.7
[2018-06-02 15:52] VITALS: BP 151/80; PULSE 92; RESP 16; TEMP 97.9; O2SAT 99
--- NOTE | 2018-06-02 19:18 | ED PDOC ---
HPI: Psych/Substance Abuse Time Seen by Provider: 06/02/18 16:24 Chief Complaint (Nursing): Alcohol Ingestion Chief Complaint (Provider): Asking for food, reports drinking History Per: Patient History/Exam Limitations: no limitations Additional Complaint(s): 53 yo male, well known to ER, presents for evaluation. Pt was admitted to hospital for GI bleed and anemia however signed out AMA this morning. Pt states he needed to go [employer] shopping. PT also admits to taking some shots today. Past Medical History Reviewed: Historical Data, Nursing Documentation, Vital Signs Vital Signs: Last Vital Signs Temp 97.9 F 06/02/18 15:48 Pulse 92 H 06/02/18 15:48 Resp 16 06/02/18 15:48 BP 151/80 H 06/02/18 15:48 Pulse Ox 99 06/02/18 15:48 - Medical History PMH: Anemia, Anxiety, Back Problems (herniated disc), Deep Vein Thrombosis, Gastritis, Gall Bladder Disease (Cholelithiasis), HTN, Pancreatitis, Pneumonia, Seizures, Chronic Pain (left shoulder) Denies: CHF, Fractures, HIV, Hypercholesterolemia, Chronic Kidney Disease, Sexually Transmitted Disease - Surgical History Surgical History: Endoscopy - Family History Family History: States: Unknown Family Hx - Immunization History Hx Tetanus Toxoid Vaccination: Yes Hx Influenza Vaccination: Yes Hx Pneumococcal Vaccination: Yes - Home Medications Home Medications: Ambulatory Orders Medication Instructions Recorded Lactulose [Enulose] 10 gm PO BID #30 ml 04/09/18 Folic Acid 1 mg PO DAILY #30 tab 05/10/18 Acetaminophen [Tylenol 325mg tab] 650 mg PO Q4 PRN 06/01/18 Acetaminophen [Tylenol 325mg tab] 650 mg PO Q4 PRN 06/01/18 Acidoph/L.bulg/Bif.b/S.thermop 1 tab PO DAILY 06/01/18 [Bacid Caplet] LORazepam [Ativan] 1 mg PO Q6 PRN 06/01/18 Levetiracetam [Keppra] 500 mg PO Q12 06/01/18 Linezolid [Zyvox] 600 mg PO Q12 06/01/18 Omeprazole 40 mg PO BID 06/01/18 Vitamin B Complex [Super B-50 1 cap PO DAILY 06/01/18 Complex] - Allergies Allergies/Adverse Reactions: Allergies Allergy/AdvReac Type Severity Reaction Status Date / Time aspirin AdvReac GI Bleed Verified 06/02/18 15:48 ibuprofen [From Motrin] AdvReac GI Bleed Verified 06/02/18 15:48 naproxen AdvReac GI bleed Verified 06/02/18 15:48 NSAIDS (Non-Steroidal AdvReac GI bleed Verified 06/02/18 15:48 Anti-Inflamma Review of Systems ROS Statement: Except As Marked, All Systems Reviewed And Found Negative Constitutional: Negative for: Fever, Chills Cardiovascular: Negative for: Chest Pain, Palpitations Respiratory: Negative for: Cough, Shortness of Breath Gastrointestinal: Negative for: Nausea, Vomiting, Abdominal Pain, Diarrhea Physical Exam - Reviewed Nursing Documentation Reviewed: Yes Vital Signs Reviewed: Yes - Physical Exam Appears: Positive for: Well, Non-toxic, No Acute Distress Head Exam: Positive for: ATRAUMATIC, NORMAL INSPECTION, NORMOCEPHALIC Skin: Positive for: Normal Color, Warm, DRY Eye Exam: Positive for: Normal appearance ENT: Positive for: Normal ENT Inspection Neck: Positive for: Normal, Painless ROM Cardiovascular/Chest: Positive for: Regular Rate, Rhythm Respiratory: Positive for: Normal Breath Sounds. Negative for: Accessory Muscle Use, Respiratory Distress Gastrointestinal/Abdominal: Positive for: Normal Exam, Soft Back: Positive for: Normal Inspection Extremity: Positive for: Normal ROM Neurologic/Psych: Positive for: Alert, Oriented - ECG O2 Sat by Pulse Oximetry: 99 Medical Decision Making Medical Decision Making: Vitals stable. Discussed case and disposition with Dr. España. Disposition - Clinical Impression Clinical Impression: Hunger, ETOH abuse - Patient ED Disposition Is Patient to be Admitted: No - Disposition Disposition: Routine/Home Disposition Time: 19:23 Condition: GOOD Instructions: Effects of Alcohol on Your Health
== END 2018-06-02 19:39 | disposition home or self-care (01) ==
LOC: H.ER 15:36
DX: F10.10 Alcohol abuse, uncomplicated (principal); T73.0XXA Starvation, initial encounter; D64.9 Anemia, unspecified; Z86.718 Personal history of other venous thrombosis and embolism

== ENCOUNTER 2018-06-02 21:16 | Emergency (ER) | payer MEDICAID ==
[2018-06-02 21:17] VITALS: BMI 23.7
[2018-06-02 21:21] VITALS: BP 153/63; PULSE 84; RESP 16; TEMP 98; O2SAT 99
--- NOTE | 2018-06-02 21:40 | ED PDOC ---
HPI: Psych/Substance Abuse Time Seen by Provider: 06/02/18 21:20 Chief Complaint (Nursing): Alcohol Ingestion Chief Complaint (Provider): ETOH abuse History Per: Patient Additional Complaint(s): 53 yo male, well known to ER, presents for evaluation. Pt was admitted to hospital for GI bleed and anemia; however signed out AMA this morning. Pt states he needed to go [employer] shopping. Pt seen and evaluated in ED earlier today and was ultimately discharged. Pt returns at this time because he wanted a dosage of Keppra Past Medical History Vital Signs: Last Vital Signs Temp 98.0 F 06/02/18 21:19 Pulse 84 06/02/18 21:19 Resp 16 06/02/18 21:19 BP 153/63 H 06/02/18 21:19 Pulse Ox 99 06/02/18 21:19 - Medical History PMH: Anemia, Anxiety, Back Problems (herniated disc), Deep Vein Thrombosis, Gastritis, Gall Bladder Disease (Cholelithiasis), HTN, Pancreatitis, Pneumonia, Seizures, Chronic Pain (left shoulder) Denies: CHF, Fractures, HIV, Hypercholesterolemia, Chronic Kidney Disease, Sexually Transmitted Disease - Surgical History Surgical History: Endoscopy - Family History Family History: States: Unknown Family Hx - Living Arrangements Living Arrangements: Other - Social History Current smoker - smoking cessation education provided: No Alcohol: > 2 Drinks/Day Drugs: Denies - Immunization History Hx Tetanus Toxoid Vaccination: Yes Hx Influenza Vaccination: Yes Hx Pneumococcal Vaccination: Yes - Home Medications Home Medications: Ambulatory Orders Medication Instructions Recorded Lactulose [Enulose] 10 gm PO BID #30 ml 04/09/18 Folic Acid 1 mg PO DAILY #30 tab 05/10/18 Acetaminophen [Tylenol 325mg tab] 650 mg PO Q4 PRN 06/01/18 Acetaminophen [Tylenol 325mg tab] 650 mg PO Q4 PRN 06/01/18 Acidoph/L.bulg/Bif.b/S.thermop 1 tab PO DAILY 06/01/18 [Bacid Caplet] LORazepam [Ativan] 1 mg PO Q6 PRN 06/01/18 Levetiracetam [Keppra] 500 mg PO Q12 06/01/18 Linezolid [Zyvox] 600 mg PO Q12 06/01/18 Omeprazole 40 mg PO BID 12/12/18 Vitamin B Complex [Super B-50 1 cap PO DAILY 06/01/18 Complex] - Allergies Allergies/Adverse Reactions: Allergies Allergy/AdvReac Type Severity Reaction Status Date / Time aspirin AdvReac GI Bleed Verified 06/02/18 21:19 ibuprofen [From Motrin] AdvReac GI Bleed Verified 06/02/18 21:19 naproxen AdvReac GI bleed Verified 06/02/18 21:19 NSAIDS (Non-Steroidal AdvReac GI bleed Verified 06/02/18 21:19 Anti-Inflamma Review of Systems ROS Statement: Except As Marked, All Systems Reviewed And Found Negative Physical Exam - Reviewed Nursing Documentation Reviewed: Yes Vital Signs Reviewed: Yes - Physical Exam Appears: Positive for: Well, Non-toxic, No Acute Distress Head Exam: Positive for: ATRAUMATIC, NORMAL INSPECTION, NORMOCEPHALIC Skin: Positive for: Normal Color, Warm, DRY Eye Exam: Positive for: EOMI, Normal appearance, PERRL ENT: Positive for: Normal ENT Inspection Neck: Positive for: Normal, Painless ROM Cardiovascular/Chest: Positive for: Regular Rate, Rhythm Respiratory: Positive for: CNT, Normal Breath Sounds Gastrointestinal/Abdominal: Positive for: Normal Exam, Soft Back: Positive for: Normal Inspection Extremity: Positive for: Normal ROM Neurologic/Psych: Positive for: Alert, Oriented - ECG O2 Sat by Pulse Oximetry: 99 Medical Decision Making Medical Decision Making: medicated with Keppra PO. Pt tolerated food tray ambulated around ED without difficulty. stable for discharge Disposition - Clinical Impression Clinical Impression: Seizure disorder - Patient ED Disposition Is Patient to be Admitted: No - Disposition Disposition: Routine/Home Disposition Time: 22:50 Condition: STABLE Instructions: Seizures, Adult (DC) Forms: [employer] (Citizen [place])
--- NOTE | 2018-06-03 05:06 | ED PDOC ---
- ECG O2 Sat by Pulse Oximetry: 99 - Progress ED Course And Treament: Case endorsed to sports writer from [employer]YAL[facility] pending sobriety 00:30 Patient sleeping; no distress 2:00 Patient sleeping; no distress 3:30 Patient sleeping; no distress 5:00 Patient awake, alert, oriented x3. Ambulating baseline. Patient requires no further intervention in the ED and is stable for discharge at this time Disposition - Clinical Impression Clinical Impression: Seizure disorder - POA Present On Arrival: None - Disposition Disposition: Routine/Home Disposition Time: 05:14 Condition: STABLE Instructions: Seizures, Adult (DC)
== END 2018-06-03 06:45 | disposition home or self-care (01) ==
LOC: H.ER 21:16
DX: G40.909 Epilepsy, unspecified, not intractable, without status epilepticus (principal); D64.9 Anemia, unspecified; Z86.718 Personal history of other venous thrombosis and embolism

== ENCOUNTER 2018-06-03 17:46 | Emergency (ER) | payer MEDICAID ==
[2018-06-03 17:46] VITALS: BMI 23.7
--- NOTE | 2018-06-03 18:44 | ED PDOC ---
HPI: Psych/Substance Abuse Time Seen by Provider: 06/03/18 18:28 Chief Complaint (Nursing): Alcohol Ingestion Chief Complaint (Provider): Alcohol Ingestion ED Caveat: Intoxicated History Per: Patient Current Symptoms Are (Timing): Still Present Additional Complaint(s): 53 year old male, with a past medical history of seizure disorder, presents to the ED via EMS for intoxication. [place] the park and admits to drinking alcohol. Denies suicidal or homicidal ideation. PMD: none Past Medical History Reviewed: Historical Data, Nursing Documentation, Vital Signs Vital Signs: Last Vital Signs Temp 97 F L 06/03/18 17:49 Pulse 87 06/03/18 17:49 Resp 18 06/03/18 17:49 BP 152/81 H 06/03/18 17:49 Pulse Ox 100 06/03/18 17:49 - Medical History PMH: Anemia, Anxiety, Back Problems (herniated disc), Deep Vein Thrombosis, Hay ritis, Gall Bladder Disease (Cholelithiasis), HTN, Pancreatitis, Pneumonia, Seizures, Chronic Pain (left shoulder) Denies: CHF, Fractures, HIV, Hypercholesterolemia, Chronic Kidney Disease, Sexually Transmitted Disease - Surgical History Surgical History: Endoscopy - Family History Family History: States: Unknown Family Hx - Immunization History Hx Tetanus Toxoid Vaccination: Yes Hx Influenza Vaccination: Yes Hx Pneumococcal Vaccination: Yes - Home Medications Home Medications: Ambulatory Orders Medication Instructions Recorded Lactulose [Enulose] 10 gm PO BID #30 ml 04/09/18 Folic Acid 1 mg PO DAILY #30 tab 05/10/18 Acetaminophen [Tylenol 325mg tab] 650 mg PO Q4 PRN 06/01/18 Acetaminophen [Tylenol 325mg tab] 650 mg PO Q4 PRN 06/01/18 Acidoph/L.bulg/Bif.b/S.thermop 1 tab PO DAILY 06/01/18 [Bacid Caplet] LORazepam [Ativan] 1 mg PO Q6 PRN 06/01/18 Levetiracetam [Keppra] 500 mg PO Q12 06/01/18 Linezolid [Zyvox] 600 mg PO Q12 06/01/18 Omeprazole 40 mg PO BID 06/01/18 Vitamin B Complex [Super B-50 1 cap PO DAILY 06/01/18 Complex] - Allergies Allergies/Adverse Reactions: Allergies Allergy/AdvReac Type Severity Reaction Status Date / Time aspirin AdvReac GI Bleed Verified 06/03/18 17:49 ibuprofen [From Motrin] AdvReac GI Bleed Verified 06/03/18 17:49 naproxen AdvReac GI bleed Verified 06/03/18 17:49 NSAIDS (Non-Steroidal AdvReac GI bleed Verified 06/03/18 17:49 Anti-Inflamma Review of Systems ROS Statement: Except As Marked, All Systems Reviewed And Found Negative Psych: Positive for: Other (Alcohol intoxication). Negative for: Suicidal ideation (or homicidal ideation) Physical Exam - Reviewed Nursing Documentation Reviewed: Yes Vital Signs Reviewed: Yes - Physical Exam Appears: Positive for: Non-toxic, No Acute Distress Head Exam: Positive for: ATRAUMATIC, NORMAL INSPECTION, NORMOCEPHALIC Skin: Positive for: Normal Color, Warm, Dry Eye Exam: Positive for: Normal appearance Neck: Positive for: Normal, Painless ROM Cardiovascular/Chest: Positive for: Regular Rate, Rhythm Respiratory: Positive for: Normal Breath Sounds. Negative for: Wheezing, Respiratory Distress Gastrointestinal/Abdominal: Positive for: Normal Exam, Soft. Negative for: Tenderness Back: Positive for: Normal Inspection Extremity: Positive for: Normal ROM Neurologic/Psych: Positive for: Alert. Negative for: Motor/Sensory Deficits - ECG O2 Sat by Pulse Oximetry: 100 (RA) Pulse Ox Interpretation: Normal Medical Decision Making Medical Decision Making: Initial Plan: --Reevaluation Scribe Attestation: Documented by Carmine Rodriguez acting as a scribe for Jonathan Sousa MD. Provider Scribe Attestation: All medical record entries made by the Scribe were at my direction and personally dictated by me. I have reviewed the chart and agree that the record accurately reflects my personal performance of the history, physical exam, medical decision making, and the department course for this patient. I have also personally directed, reviewed, and agree with the discharge instructions and disposition. Disposition - Clinical Impression Clinical Impression: Alcohol abuse with intoxication - Patient ED Disposition Is Patient to be Admitted: No Counseled Patient/Family Regarding: Diagnosis, Need For Followup - Disposition Disposition: Routine/Home Disposition Time: 23:21 Condition: FAIR Instructions: Alcohol Abuse and Alcoholism (DC) Forms: [employer] (Swazi)
[2018-06-03 23:32] VITALS: BP 117/67; PULSE 94; RESP 19; TEMP 98.8; O2SAT 98
== END 2018-06-03 23:31 | disposition home or self-care (01) ==
LOC: H.ER 17:46
DX: F10.129 Alcohol abuse with intoxication, unspecified (principal); G40.909 Epilepsy, unspecified, not intractable, without status epilepticus; Z86.718 Personal history of other venous thrombosis and embolism; Z88.6 Allergy status to analgesic agent; I10 Essential (primary) hypertension

== ENCOUNTER 2018-06-04 00:13 | Emergency (ER) | payer MEDICAID ==
[2018-06-04 00:14] VITALS: BMI 23.7
[2018-06-04 00:47] VITALS: BP 138/71; PULSE 89; RESP 16; TEMP 98.1; O2SAT 99
--- NOTE | 2018-06-04 02:06 | ED PDOC ---
HPI: Psych/Substance Abuse Time Seen by Provider: 06/04/18 00:36 Chief Complaint (Nursing): Alcohol Ingestion Chief Complaint (Provider): Seizure History Per: Patient History/Exam Limitations: no limitations Onset/Duration Of Symptoms: Hrs Current Symptoms Are (Timing): Still Present Suicide/Self Injury Attempted (Context): None Additional Complaint(s): 53 y/o male with a PMHx of seizure disorder presents to the ED for evaluation of a seizure. Patient is well known to ED provider and staff for frequent visits and bed malingering behavior. Patient was discharged 30 minutes prior to return to the ED. Past Medical History Reviewed: Historical Data, Nursing Documentation, Vital Signs Vital Signs: Last Vital Signs Temp 98.1 F 06/04/18 00:44 Pulse 89 06/04/18 00:44 Resp 16 06/04/18 00:44 BP 138/71 06/04/18 00:44 Pulse Ox 99 06/04/18 00:44 - Medical History PMH: Anemia, Anxiety, Back Problems (herniated disc), Deep Vein Thrombosis, Gastritis, Gall Bladder Disease (Cholelithiasis), HTN, Pancreatitis, Pneumonia, Seizures, Chronic Pain (left shoulder) Denies: CHF, Fractures, HIV, Hypercholesterolemia, Chronic Kidney Disease, Sexually Transmitted Disease - Surgical History Surgical History: Endoscopy - Family History Family History: States: Unknown Family Hx - Immunization History Hx Tetanus Toxoid Vaccination: Yes Hx Influenza Vaccination: Yes Hx Pneumococcal Vaccination: Yes - Home Medications Home Medications: Ambulatory Orders Medication Instructions Recorded RX: Lactulose [Enulose] 10 gm PO BID #30 ml 04/09/18 RX: Folic Acid 1 mg PO DAILY #30 tab 05/10/18 Acetaminophen [Tylenol 325mg tab] 650 mg PO Q4 PRN 06/01/18 Acetaminophen [Tylenol 325mg tab] 650 mg PO Q4 PRN 06/01/18 Acidoph/L.bulg/Bif.b/S.thermop 1 tab PO DAILY 06/01/18 [Bacid Caplet] LORazepam [Ativan] 1 mg PO Q6 PRN 06/01/18 Omeprazole 40 mg PO BID 06/01/18 RX: Levetiracetam [Keppra] 500 mg PO Q12 06/01/18 RX: Linezolid [Zyvox] 600 mg PO Q12 06/01/18 RX: Vitamin B Complex [Super B-50 1 cap PO DAILY 06/01/18 Complex] - Allergies Allergies/Adverse Reactions: Allergies Allergy/AdvReac Type Severity Reaction Status Date / Time aspirin AdvReac GI Bleed Verified 06/04/18 00:47 ibuprofen [From Motrin] AdvReac GI Bleed Verified 06/04/18 00:47 naproxen AdvReac GI bleed Verified 06/04/18 00:47 NSAIDS (Non-Steroidal AdvReac GI bleed Verified 06/04/18 00:47 Anti-Inflamma Review of Systems ROS Statement: Except As Marked, All Systems Reviewed And Found Negative Neurological: Positive for: Seizures Physical Exam - Reviewed Nursing Documentation Reviewed: Yes Vital Signs Reviewed: Yes - Physical Exam Appears: Positive for: No Acute Distress Head Exam: Positive for: ATRAUMATIC, NORMOCEPHALIC Skin: Positive for: Normal Color, Warm, Dry Eye Exam: Positive for: Normal appearance, EOMI, PERRL Neck: Positive for: Normal, Painless ROM Cardiovascular/Chest: Positive for: Regular Rate, Rhythm. Negative for: Murmur Respiratory: Positive for: Normal Breath Sounds. Negative for: Respiratory Distress Gastrointestinal/Abdominal: Positive for: Normal Exam, Soft. Negative for: Tenderness Back: Positive for: Normal Inspection. Negative for: L CVA Tenderness, R CVA Tenderness, Vertebral Tenderness Extremity: Positive for: Normal ROM. Negative for: Pedal Edema, Deformity Neurologic/Psych: Positive for: Alert, Oriented. Negative for: Motor/Sensory Deficits - Laboratory Results Result Diagrams: 06/04/18 02:22 06/04/18 02:22 - ECG O2 Sat by Pulse Oximetry: 99 (RA) Pulse Ox Interpretation: Normal Medical Decision Making Medical Decision Making: Time: 52 Plan: -- [place] -- BMP -- Lactic Acid -- CBC with Differentials 500 -- No seizure activity in ED -- Steady gait, alert, oriented Scribe Attestation: Documented by Tutu Butler, acting as a scribe for Murphy Chiu MD. Provider Scribe Attestation: All medical record entries made by the Scribe were at my direction and personally dictated by me. I have reviewed the chart and agree that the record accurately reflects my personal performance of the history, physical exam, medical decision making, and the department course for this patient. I have also personally directed, reviewed, and agree with the discharge instructions and di sposition. Disposition - Clinical Impression Clinical Impression: Seizure disorder - Patient ED Disposition Is Patient to be Admitted: No - Disposition Disposition: Routine/Home Disposition Time: 05:00 Condition: STABLE Instructions: Seizures, Adult (DC) Forms: [employer] (Turkish)
[2018-06-04 02:42] LABS: BASO % 1.2 % (0.0-2.0); EOS # 0.2 K/uL (0.0-0.7); EOS % 8.4 % (0.0-4.0); HEMOGLOBIN 8.1 g/dL (12.0-18.0); LYMPH # 0.6 K/uL (1.0-4.3); LYMPH % 19.5 % (20.0-40.0); MEAN CELL VOLUME 85.7 fl (80.0-94.0); MEAN CORPUSCULAR HEMOGLOBIN 28.1 pg (27.0-31.0); MEAN CORPUSCULAR HGB CONC 32.7 g/dL (33.0-37.0); MEAN PLATELET VOLUME 7.1 fl (7.2-11.7); MONO # 0.5 K/uL (0.0-0.8); MONO % 17.5 % (0.0-10.0); NEUT # 1.5 K/uL (1.8-7.0); NEUT % 53.4 % (50.0-75.0); NRBC % 0.1 % (0.0-0.0); RBC 2.89 Mil/uL (4.40-5.90); RED CELL DISTRIBUTION WIDTH 18.7 % (11.5-14.5); WHITE BLOOD COUNT 2.9 K/uL (4.8-10.8)
[2018-06-04 02:45] LABS: BLOOD UREA NITROGEN 15 mg/dl (9-20); CALCIUM 8.3 mg/dL (8.4-10.2); GFR NON-AFRICAN AMERICAN > 60
== END 2018-06-04 06:12 | disposition home or self-care (01) ==
LOC: H.ER 00:13
DX: G40.909 Epilepsy, unspecified, not intractable, without status epilepticus (principal); G89.29 Other chronic pain; I10 Essential (primary) hypertension; Z86.718 Personal history of other venous thrombosis and embolism

== ENCOUNTER 2018-06-04 06:53 | Emergency (ER) | payer MEDICAID ==
[2018-06-04 06:53] VITALS: BMI 23.7
[2018-06-04 07:09] VITALS: BP 148/73; PULSE 93; RESP 14; TEMP 98.2; O2SAT 95
--- NOTE | 2018-06-04 08:11 | ED PDOC ---
HPI: Seizure Time Seen by Provider: 06/04/18 07:03 Chief Complaint (Nursing): Syncope Chief Complaint (Provider): Seizure History Per: Patient History/Exam Limitations: no limitations Additional Complaint(s): 53 year old male, with a history of frequent visits, presents to ED for evaluation of a self-reported seizure just prior to arrival. Patient returned complaining he had a seizure shortly after being discharged and prior to returning to the ER. PMD: none Past Medical History Reviewed: Historical Data, Nursing Documentation, Vital Signs Vital Signs: Last Vital Signs Temp 98.2 F 06/04/18 07:07 Pulse 93 H 06/04/18 07:07 Resp 14 06/04/18 07:07 BP 148/73 06/04/18 07:07 Pulse Ox 95 06/04/18 07:07 - Medical History PMH: Anemia, Anxiety, Back Problems (herniated disc), Deep Vein Thrombosis, Gastritis, Gall Bladder Disease (Cholelithiasis), HTN, Pancreatitis, Pneumonia, Seizures, Chronic Pain (left shoulder) Denies: CHF, Fractures, HIV, Hypercholesterolemia, Chronic Kidney Disease, Sexually Transmitted Disease - Surgical History Surgical History: Endoscopy - Family History Family History: States: Unknown Family Hx - Immunization History Hx Tetanus Toxoid Vaccination: Yes Hx Influenza Vaccination: Yes Hx Pneumococcal Vaccination: Yes - Home Medications Home Medications: Ambulatory Orders Medication Instructions Recorded Lactulose [Enulose] 10 gm PO BID #30 ml 04/09/18 Folic Acid 1 mg PO DAILY #30 tab 05/10/18 Acetaminophen [Tylenol 325mg tab] 650 mg PO Q4 PRN 06/01/18 Acetaminophen [Tylenol 325mg tab] 650 mg PO Q4 PRN 06/01/18 Acidoph/L.bulg/Bif.b/S.thermop 1 tab PO DAILY 06/01/18 [Bacid Caplet] LORazepam [Ativan] 1 mg PO Q6 PRN 06/01/18 Levetiracetam [Keppra] 500 mg PO Q12 06/01/18 Linezolid [Zyvox] 600 mg PO Q12 06/01/18 Omeprazole 40 mg PO BID 06/01/18 Vitamin B Complex [Super B-50 1 cap PO DAILY 06/01/18 Complex] - Allergies Allergies/Adverse Reactions: Allergies Allergy/AdvReac Type Severity Reaction Status Date / Time aspirin AdvReac GI Bleed Verified 06/04/18 07:10 ibuprofen [From Motrin] AdvReac GI Bleed Verified 06/04/18 07:10 naproxen AdvReac GI bleed Verified 06/04/18 07:10 NSAIDS (Non-Steroidal AdvReac GI bleed Verified 06/04/18 07:10 Anti-Inflamma Review of Systems ROS Statement: Except As Marked, All Systems Reviewed And Found Negative Neurological: Positive for: Seizures Physical Exam - Reviewed Nursing Documentation Reviewed: Yes Vital Signs Reviewed: Yes - Physical Exam Appears: Positive for: Non-toxic, No Acute Distress Head Exam: Positive for: ATRAUMATIC, NORMOCEPHALIC Skin: Positive for: Normal Color, Warm, Dry Eye Exam: Positive for: Normal appearance Neck: Positive for: Normal, Painless ROM Extremity: Positive for: Normal ROM, Other (Full ambulatory; able to walk in and out of the room; went to the bathroom without difficulty) Neurologic/Psych: Positive for: Alert (and awake), Other - ECG O2 Sat by Pulse Oximetry: 95 Disposition - Clinical Impression Clinical Impression: Seizure - Patient ED Disposition Is Patient to be Admitted: No Doctor Will See Patient In The: Office Counseled Patient/Family Regarding: Diagnosis, Need For Followup - Disposition Disposition: Routine/Home Disposition Time: 10:46 Condition: STABLE Instructions: Seizures, Adult (DC) Forms: [employer] (Irish) - POA Present On Arrival: None
== END 2018-06-04 10:45 | disposition home or self-care (01) ==
LOC: H.ER 06:53
DX: R56.9 Unspecified convulsions (principal); I10 Essential (primary) hypertension; G89.29 Other chronic pain; Z86.718 Personal history of other venous thrombosis and embolism; Z88.6 Allergy status to analgesic agent

== ENCOUNTER 2018-06-08 08:02 | Emergency (ER) | payer MEDICAID ==
[2018-06-08 08:02] VITALS: BMI 23.7
[2018-06-08 08:07] VITALS: O2SAT 98
--- NOTE | 2018-06-08 08:43 | ED PDOC ---
HPI: Seizure Time Seen by Provider: 06/08/18 08:35 Chief Complaint (Nursing): Seizure Chief Complaint (Provider): Seizure History Per: Patient History/Exam Limitations: no limitations Additional Complaint(s): 53 year old male, with a past medical history of seizure disorder, presents to the ED complaining of a self-reported seizure. Patient has no other complaints at this time. Patient is well known for frequent visits to the ED. PMD: none Past Medical History Reviewed: Historical Data, Nursing Documentation, Vital Signs Vital Signs: Last Vital Signs Temp 98.7 F 06/08/18 08:06 Pulse 86 06/08/18 08:06 Resp 18 06/08/18 08:06 BP 122/61 06/08/18 08:06 Pulse Ox 98 06/08/18 08:06 - Medical History PMH: Anemia, Anxiety, Back Problems (herniated disc), Deep Vein Thrombosis, Gastritis, Gall Bladder Disease (Cholelithiasis), HTN, Pancreatitis, Pneumonia, Seizures, Chronic Pain (left shoulder) Denies: CHF, Fractures, HIV, Hypercholesterolemia, Chronic Kidney Disease, Sexually Transmitted Disease - Surgical History Surgical History: Endoscopy - Family History Family History: States: Unknown Family Hx - Immunization History Hx Tetanus Toxoid Vaccination: Yes Hx Influenza Vaccination: Yes Hx Pneumococcal Vaccination: Yes - Home Medications Home Medications: Ambulatory Orders Medication Instructions Recorded Lactulose [Enulose] 10 gm PO BID #30 ml 04/09/18 Folic Acid 1 mg PO DAILY #30 tab 05/10/18 Acetaminophen [Tylenol 325mg tab] 650 mg PO Q4 PRN 06/01/18 Acetaminophen [Tylenol 325mg tab] 650 mg PO Q4 PRN 06/01/18 Acidoph/L.bulg/Bif.b/S.thermop 1 tab PO DAILY 06/01/18 [Bacid Caplet] LORazepam [Ativan] 1 mg PO Q6 PRN 06/01/18 Levetiracetam [Keppra] 500 mg PO Q12 06/01/18 Linezolid [Zyvox] 600 mg PO Q12 06/01/18 Omeprazole 40 mg PO BID 06/01/18 Vitamin B Complex [Super B-50 1 cap PO DAILY 06/01/18 Complex] - Allergies Allergies/Adverse Reactions: Allergies Allergy/AdvReac Type Severity Reaction Status Date / Time aspirin AdvReac GI Bleed Verified 06/04/18 07:10 ibuprofen [From Motrin] AdvReac GI Bleed Verified 06/04/18 07:10 naproxen AdvReac GI bleed Verified 06/04/18 07:10 NSAIDS (Non-Steroidal AdvReac GI bleed Verified 06/04/18 07:10 Anti-Inflamma Review of Systems ROS Statement: Except As Marked, All Systems Reviewed And Found Negative Neurological: Positive for: Seizures Physical Exam - Reviewed Nursing Documentation Reviewed: Yes Vital Signs Reviewed: Yes - Physical Exam Appears: Positive for: Non-toxic, No Acute Distress Head Exam: Positive for: ATRAUMATIC, NORMOCEPHALIC Skin: Positive for: Normal Color, Warm, Dry Eye Exam: Positive for: Normal appearance Neck: Positive for: Normal, Painless ROM Cardiovascular/Chest: Positive for: Regular Rate, Rhythm Respiratory: Positive for: Normal Breath Sounds. Negative for: Wheezing, Respiratory Distress Extremity: Positive for: Normal ROM Neurologic/Psych: Positive for: Alert, Oriented. Negative for: Motor/Sensory Deficits - ECG O2 Sat by Pulse Oximetry: 98 (RA) Pulse Ox Interpretation: Normal Medical Decision Making Medical Decision Making: Initial plan: --Reevaluation Scribe Attestation: Documented by Carmine Rodriguez acting as a scribe for Jonathan Sousa MD. Provider Scribe Attestation: All medical record entries made by the Scribe were at my direction and personally dictated by me. I have reviewed the chart and agree that the record accurately reflects my personal performance of the history, physical exam, medical decision making, and the department course for this patient. I have also personally directed, reviewed, and agree with the discharge instructions and disposition. Disposition - Clinical Impression Clinical Impression: Chronic pain - Patient ED Disposition Is Patient to be Admitted: No Counseled Patient/Family Regarding: Diagnosis, Need For Followup - Disposition Referrals: [facility] [Outside] Disposition: Routine/Home Disposition Time: 09:27 Condition: FAIR Instructions: Chronic Pain (DC) Forms: [employer] (Angolan)
[2018-06-08 10:00] VITALS: BP 132/74; PULSE 78; RESP 19; TEMP 98.3
== END 2018-06-08 10:01 | disposition home or self-care (01) ==
LOC: H.ER 08:02 → SUPCPDRO 08:02 → H.ER 10:01
DX: G89.29 Other chronic pain (principal)

== ENCOUNTER 2018-06-13 20:36 | Emergency (ER) | payer MEDICAID ==
[2018-06-13 20:36] VITALS: BMI 23.7
[2018-06-13 20:52] VITALS: BP 124/65; TEMP 98.7
[2018-06-13 21:04] VITALS: PULSE 92; RESP 18; O2SAT 100
--- NOTE | 2018-06-13 21:25 | ED PDOC ---
HPI: General Adult Time Seen by Provider: 06/13/18 20:53 Chief Complaint (Nursing): Seizure Chief Complaint (Provider): Seizure History Per: Patient History/Exam Limitations: no limitations Onset/Duration Of Symptoms: Mins (30x minutes) Current Symptoms Are (Timing): Gone Now Severity: Mild Additional Complaint(s): 53 year old male, well known to the ED and provider presents to the ED for an evaluation of a seizure that occurred 30x minutes prior to signing in. As per Tammy (RN), patient has been in the waiting room all day, and was not witnessed to have a seizure while in the waiting room. Patient offers no other complaints at this time. PMD: Nishant Moreno MD Past Medical History Reviewed: Historical Data, Nursing Documentation, Vital Signs Vital Signs: Last Vital Signs Temp 98.7 F 06/13/18 20:51 Pulse 92 H 06/13/18 21:03 Resp 18 06/13/18 21:03 BP 124/65 06/13/18 20:51 Pulse Ox 100 06/13/18 21:03 CARMEN report viewed?: Yes - Medical History PMH: Anemia, Anxiety, Back Problems (herniated disc), Deep Vein Thrombosis, Gastritis, Gall Bladder Disease (Cholelithiasis), HTN, Pancreatitis, Pneumonia, Seizures, Chronic Pain (left shoulder) Denies: CHF, Fractures, HIV, Hypercholesterolemia, Chronic Kidney Disease, Sexually Transmitted Disease - Surgical History Surgical History: Endoscopy - Family History Family History: States: No Known Family Hx - Living Arrangements Living Arrangements: Other (homeless) - Social History Current smoker - smoking cessation education provided: Yes Drugs: Denies - Immunization History Hx Tetanus Toxoid Vaccination: Yes Hx Influenza Vaccination: Yes Hx Pneumococcal Vaccination: Yes - Home Medications Home Medications: Ambulatory Orders Medication Instructions Recorded Lactulose [Enulose] 10 gm PO BID #30 ml 04/09/18 Folic Acid 1 mg PO DAILY #30 tab 05/10/18 Acetaminophen [Tylenol 325mg tab] 650 mg PO Q4 PRN 06/01/18 Acetaminophen [Tylenol 325mg tab] 650 mg PO Q4 PRN 06/01/18 Acidoph/L.bulg/Bif.b/S.thermop 1 tab PO DAILY 06/01/18 [Bacid Caplet] LORazepam [Ativan] 1 mg PO Q6 PRN 06/01/18 Levetiracetam [Keppra] 500 mg PO Q12 06/01/18 Linezolid [Zyvox] 600 mg PO Q12 06/01/18 Omeprazole 40 mg PO BID 06/01/18 Vitamin B Complex [Super B-50 1 cap PO DAILY 06/01/18 Complex] - Allergies Allergies/Adverse Reactions: Allergies Allergy/AdvReac Type Severity Reaction Status Date / Time aspirin AdvReac GI Bleed Verified 06/13/18 20:47 ibuprofen [From Motrin] AdvReac GI Bleed Verified 06/13/18 20:47 naproxen AdvReac GI bleed Verified 06/13/18 20:47 NSAIDS (Non-Steroidal AdvReac GI bleed Verified 06/13/18 20:47 Anti-Inflamma Review of Systems ROS Statement: Except As Marked, All Systems Reviewed And Found Negative Neurological: Positive for: Seizures Physical Exam - Reviewed Nursing Documentation Reviewed: Yes Vital Signs Reviewed: Yes - Physical Exam Appears: Positive for: Well, Non-toxic, No Acute Distress Head Exam: Positive for: ATRAUMATIC, NORMOCEPHALIC Skin: Positive for: Normal Color, Warm, Dry ENT: Positive for: Normal ENT Inspection. Negative for: Other (oral lacerations) Cardiovascular/Chest: Positive for: Regular Rate, Rhythm Respiratory: Positive for: Normal Breath Sounds Neurologic/Psych: Positive for: Alert, Oriented (3x), Gait (steady, unassisted) - ECG O2 Sat by Pulse Oximetry: 100 (RA) Pulse Ox Interpretation: Normal Medical Decision Making Medical Decision Makin:53 Initial impression: 53 year old male with a seizure. Initial plan: -- glucose, POC -- reevaluation Scribe Attestation: Documented by Haydee Vela, acting as a scribe for Lincoln Saba Provider Scribe Attestation: All medical record entries made by the Scribe were at my direction and personally dictated by me. I have reviewed the chart and agree that the record accurately reflects my personal performance of the history, physical exam, medical decision making, and the department course for this patient. I have also personally directed, reviewed, and agree with the discharge instructions and disposition. Disposition - Clinical Impression Clinical Impression: Malingerer - Patient ED Disposition Is Patient to be Admitted: Transfer of Care (Signed out to Charity AYALA pending sobriety.) - Disposition Disposition Time: 00:12 Condition: STABLE Instructions: General (DC) Forms: [employer] (Australian)
== END 2018-06-14 00:19 | disposition home or self-care (01) ==
LOC: H.ER 20:36
DX: Z03.89 Encounter for observation for other suspected diseases and conditions ruled out (principal); Z76.5 Malingerer [conscious simulation]; F17.200 Nicotine dependence, unspecified, uncomplicated; G89.29 Other chronic pain; Z86.718 Personal history of other venous thrombosis and embolism; Z88.6 Allergy status to analgesic agent; I10 Essential (primary) hypertension

== ENCOUNTER 2018-06-14 01:07 | Emergency (ER) | payer MEDICAID ==
[2018-06-14 01:08] VITALS: BMI 23.7
[2018-06-14 01:46] VITALS: BP 141/73; PULSE 81; RESP 18; TEMP 97.9; O2SAT 97
--- NOTE | 2018-06-14 03:00 | ED PDOC ---
HPI: General Adult Time Seen by Provider: 06/14/18 01:25 Chief Complaint (Nursing): Medical Clearance Chief Complaint (Provider): seizure History Per: Patient History/Exam Limitations: no limitations Onset/Duration Of Symptoms: Hrs Current Symptoms Are (Timing): Better Additional Complaint(s): 53 year old male presents to the ED for an evaluation of a seizure. Patient is homeless and familiar to the ED. Patient was seen earlier in the ED with the same complaint. He denies chest pain, fever, cough, shortness of breath, abdominal pain, vomiting, nausea, diarrhea, rash SI/HI. PMD: No Family Provider Past Medical History Reviewed: Historical Data, Nursing Documentation, Vital Signs Vital Signs: Last Vital Signs Temp 97.9 F 06/14/18 01:14 Pulse 81 06/14/18 01:14 Resp 18 06/14/18 01:14 BP 141/73 06/14/18 01:14 Pulse Ox 97 06/14/18 01:14 - Medical History PMH: Anemia, Anxiety, Back Problems (herniated disc), Deep Vein Thrombosis, Gastritis, Gall Bladder Disease (Cholelithiasis), HTN, Pancreatitis, Pneumonia, Seizures, Chronic Pain (left shoulder) Denies: CHF, Fractures, HIV, Hypercholesterolemia, Chronic Kidney Disease, Sexually Transmitted Disease - Surgical History Surgical History: Endoscopy - Family History Family History: States: Unknown Family Hx - Social History Current smoker - smoking cessation education provided: No Alcohol: > 2 Drinks/Day Drugs: Denies - Immunization History Hx Tetanus Toxoid Vaccination: Yes Hx Influenza Vaccination: Yes Hx Pneumococcal Vaccination: Yes - Home Medications Home Medications: Ambulatory Orders Medication Instructions Recorded RX: Lactulose [Enulose] 10 gm PO BID #30 ml 04/09/18 RX: Folic Acid 1 mg PO DAILY #30 tab 05/10/18 Acetaminophen [Tylenol 325mg tab] 650 mg PO Q4 PRN 06/01/18 Acetaminophen [Tylenol 325mg tab] 650 mg PO Q4 PRN 06/01/18 Acidoph/L.bulg/Bif.b/S.thermop 1 tab PO DAILY 06/01/18 [Bacid Caplet] LORazepam [Ativan] 1 mg PO Q6 PRN 06/01/18 Omeprazole 40 mg PO BID 06/01/18 RX: Levetiracetam [Keppra] 500 mg PO Q12 06/01/18 RX: Linezolid [Zyvox] 600 mg PO Q12 06/01/18 RX: Vitamin B Complex [Super B-50 1 cap PO DAILY 06/01/18 Complex] - Allergies Allergies/Adverse Reactions: Allergies Allergy/AdvReac Type Severity Reaction Status Date / Time aspirin AdvReac GI Bleed Verified 06/15/18 00:12 ibuprofen [From Motrin] AdvReac GI Bleed Verified 06/15/18 00:12 naproxen AdvReac GI bleed Verified 06/15/18 00:12 NSAIDS (Non-Steroidal AdvReac GI bleed Verified 06/15/18 00:12 Anti-Inflamma Review of Systems ROS Statement: Except As Marked, All Systems Reviewed And Found Negative Constitutional: Negative for: Fever, Chills Cardiovascular: Negative for: Chest Pain Respiratory: Negative for: Cough, Shortness of Breath Gastrointestinal: Negative for: Nausea, Vomiting, Abdominal Pain, Diarrhea Skin: Negative for: Rash Neurological: Positive for: Seizures. Negative for: Headache, Dizziness Psych: Negative for: Suicidal ideation (homicidal ideation) Physical Exam - Reviewed Nursing Documentation Reviewed: Yes Vital Signs Reviewed: Yes - Physical Exam Appears: Positive for: Well, Non-toxic, No Acute Distress Head Exam: Positive for: ATRAUMATIC, NORMAL INSPECTION, NORMOCEPHALIC Skin: Positive for: Normal Color, Warm, Dry. Negative for: Rash Eye Exam: Positive for: EOMI, Normal appearance, PERRL ENT: Positive for: Normal ENT Inspection Neck: Positive for: Normal, Painless ROM, Supple. Negative for: Decreased ROM Cardiovascular/Chest: Positive for: Regular Rate, Rhythm. Negative for: Murmur Respiratory: Positive for: Normal Breath Sounds. Negative for: Decreased Breath Sounds, Wheezing, Respiratory Distress Gastrointestinal/Abdominal: Positive for: Normal Exam, Soft. Negative for: Tenderness Back: Positive for: Normal Inspection Extremity: Positive for: Normal ROM. Negative for: Tenderness, Pedal Edema, Deformity Neurologic/Psych: Positive for: Alert, Oriented (x3). Negative for: Motor/Sensory Deficits - ECG O2 Sat by Pulse Oximetry: 97 (RA) Pulse Ox Interpretation: Normal Medical Decision Making Medical Decision Making: Time: 215 Initial Plan: Accucheck Reevaluation --------- Scribe Attestation: Documented by Jean Claude Whitmore, acting as a scribe for Amanda Washington MD. Provider Scribe Attestation: All medical record entries made by the Scribe were at my direction and personally dictated by me. I have reviewed the chart and agree that the record accurately reflects my personal performance of the history, physical exam, medical decision making, and the department course for this patient. I have also personally directed, reviewed, and agree with the discharge instructions and disposition. Disposition - Clinical Impression Clinical Impression: Simple seizure - Patient ED Disposition Is Patient to be Admitted: No Counseled Patient/Family Regarding: Studies Performed, Diagnosis, Need For Followup - Disposition Disposition: Routine/Home Disposition Time: 03:00 Condition: IMPROVED Additional Instructions: follow up with your doctor in 2 days return to the ED with any worsening or concerning symptoms Instructions: General (DC) Forms: [employer] (Uzbek)
== END 2018-06-14 06:10 | disposition home or self-care (01) ==
LOC: H.ER 01:07
DX: R56.9 Unspecified convulsions (principal); Z59.0 Homelessness

== ENCOUNTER 2018-06-14 08:04 | Emergency (ER) | payer MEDICAID ==
[2018-06-14 08:04] VITALS: BMI 23.7
[2018-06-14 08:08] VITALS: O2SAT 98
--- NOTE | 2018-06-14 08:38 | ED PDOC ---
HPI: Seizure Time Seen by Provider: 06/14/18 08:23 Chief Complaint (Nursing): Seizure Chief Complaint (Provider): Seizure History Per: Patient History/Exam Limitations: no limitations Recent Seizure Activity Began: Hours Ago: (@0600) Additional Complaint(s): Shreyas Sepulveda is a 53 year old male a past history of seizures, anemia, hypertension, and alcohol abuse, who presents to the emergency department stating he had a witnessed seizure at [facility] in [place] at 6am today. Patient states he did not hit his head and that he has no other other complaints. He states he took Keppra and has been complaint with his medications. Patient further reports that he wants to eat something. Patient is well known to provider from previous visits to the ED. PMD: [facility] Past Medical History Reviewed: Historical Data, Nursing Documentation, Vital Signs Vital Signs: Last Vital Signs Temp 98.7 F 06/14/18 08:07 Pulse 98 H 06/14/18 08:07 Resp 18 06/14/18 08:07 BP 132/70 06/14/18 08:07 Pulse Ox 98 06/14/18 08:07 - Medical History PMH: Anemia, Anxiety, Back Problems (herniated disc), Deep Vein Thrombosis, Gastritis, Gall Bladder Disease (Cholelithiasis), HTN, Pancreatitis, Pneumonia, Seizures, Chronic Pain (left shoulder) Denies: CHF, Fractures, HIV, Hypercholesterolemia, Chronic Kidney Disease, Sexually Transmitted Disease - Surgical History Surgical History: Endoscopy - Family History Family History: States: Unknown Family Hx - Living Arrangements Living Arrangements: Other (homeless) - Immunization History Hx Tetanus Toxoid Vaccination: Yes Hx Influenza Vaccination: Yes Hx Pneumococcal Vaccination: Yes - Home Medications Home Medications: Ambulatory Orders Medication Instructions Recorded RX: Lactulose [Enulose] 10 gm PO BID #30 ml 04/09/18 RX: Folic Acid 1 mg PO DAILY #30 tab 05/10/18 Acetaminophen [Tylenol 325mg tab] 650 mg PO Q4 PRN 06/01/18 Acetaminophen [Tylenol 325mg tab] 650 mg PO Q4 PRN 06/01/18 Acidoph/L.bulg/Bif.b/S.thermop 1 tab PO DAILY 06/01/18 [Bacid Caplet] LORazepam [Ativan] 1 mg PO Q6 PRN 06/01/18 Omeprazole 40 mg PO BID 06/01/18 RX: Levetiracetam [Keppra] 500 mg PO Q12 06/01/18 RX: Linezolid [Zyvox] 600 mg PO Q12 06/01/18 RX: Vitamin B Complex [Super B-50 1 cap PO DAILY 06/01/18 Complex] - Allergies Allergies/Adverse Reactions: Allergies Allergy/AdvReac Type Severity Reaction Status Date / Time aspirin AdvReac GI Bleed Verified 06/15/18 00:12 ibuprofen [From Motrin] AdvReac GI Bleed Verified 06/15/18 00:12 naproxen AdvReac GI bleed Verified 06/15/18 00:12 NSAIDS (Non-Steroidal AdvReac GI bleed Verified 06/15/18 00:12 Anti-Inflamma Review of Systems ROS Statement: Except As Marked, All Systems Reviewed And Found Negative Musculoskeletal: Negative for: Other (head injury) Neurological: Positive for: Seizures Physical Exam - Reviewed Nursing Documentation Reviewed: Yes Vital Signs Reviewed: Yes - Physical Exam Appears: Positive for: Non-toxic, No Acute Distress Head Exam: Positive for: ATRAUMATIC, NORMOCEPHALIC Skin: Positive for: Normal Color, Warm, Dry Eye Exam: Positive for: Normal appearance, EOMI, PERRL Neck: Positive for: Normal, Painless ROM, Supple Cardiovascular/Chest: Positive for: Regular Rate, Rhythm. Negative for: Murmur Respiratory: Positive for: Normal Breath Sounds. Negative for: Respiratory Distress Gastrointestinal/Abdominal: Positive for: Normal Exam, Soft. Negative for: Tenderness Back: Positive for: Normal Inspection. Negative for: L CVA Tenderness, R CVA Tenderness, Vertebral Tenderness Extremity: Positive for: Normal ROM. Negative for: Pedal Edema, Deformity Neurologic/Psych: Positive for: Alert, Oriented (x3). Negative for: Motor/Sensory Deficits - ECG O2 Sat by Pulse Oximetry: 98 (RA) Pulse Ox Interpretation: Normal - Progress Re-evaluation Time: 09:50 Condition: Re-examined, Improved Medical Decision Making Medical Decision Makin Impression: recurrent seizure Differential diagnosis includes but is not limited to alcohol intoxication Plan: --Alcohol serum Scribe Attestation: Documented by Bradley Og, acting as a scribe for Cathy Salazar MD. Provider Scribe Attestation: All medical record entries made by the Scribe were at my direction and personally dictated by me. I have reviewed the chart and agree that the record accurately reflects my personal performance of the history, physical exam, medical decision making, and the department course for this patient. I have also personally directed, reviewed, and agree with the discharge instructions and disposition. Disposition - Clinical Impression Clinical Impression: Recurrent seizures - Patient ED Disposition Is Patient to be Admitted: No Doctor Will See Patient In The: Office Counseled Patient/Family Regarding: Studies Performed, Diagnosis, Need For Followup - Disposition Referrals: [facility] [Outside] Disposition: Routine/Home Disposition Time: 09:51 Condition: GOOD Instructions: Seizures, Adult (DC)
[2018-06-14 10:10] VITALS: BP 133/74; PULSE 88; RESP 16; TEMP 98.1
== END 2018-06-14 10:10 | disposition home or self-care (01) ==
LOC: H.ER 08:04
DX: G40.909 Epilepsy, unspecified, not intractable, without status epilepticus (principal)

== ENCOUNTER 2018-06-14 16:50 | Emergency (ER) | payer MEDICAID ==
[2018-06-14 16:50] VITALS: BMI 23.7
[2018-06-14 17:37] VITALS: BP 141/70; PULSE 92; RESP 18; TEMP 99.4; O2SAT 98
--- NOTE | 2018-06-14 17:48 | ED PDOC ---
HPI: Seizure Time Seen by Provider: 06/14/18 17:45 Chief Complaint (Nursing): Seizure Chief Complaint (Provider): malingering and homeless History Per: Patient History/Exam Limitations: no limitations Recent Seizure Activity Began: Unknown Length Of Seizures (Duration): Unknown Quality Of Seizure: Generalized Precipitating Factor(s): None (Pt is well known homeless individual that comes to the ED complaining often of seizures without any discussion beyond the statement; the patient rests in the bed and seeks nutritional support and walks out. Pt again suggest that he had a seizure activity) Past Medical History Reviewed: Historical Data, Nursing Documentation, Vital Signs Vital Signs: Last Vital Signs Temp 99.4 F 06/14/18 17:36 Pulse 92 H 06/14/18 17:36 Resp 18 06/14/18 17:36 BP 141/70 06/14/18 17:36 Pulse Ox 98 06/14/18 17:36 - Medical History PMH: Anemia, Anxiety, Back Problems (herniated disc), Deep Vein Thrombosis, Gastritis, Gall Bladder Disease (Cholelithiasis), HTN, Pancreatitis, Pneumonia, Seizures, Chronic Pain (left shoulder) Denies: CHF, Fractures, HIV, Hypercholesterolemia, Chronic Kidney Disease, Sexually Transmitted Disease - Surgical History Surgical History: Endoscopy - Family History Family History: States: Unknown Family Hx - Immunization History Hx Tetanus Toxoid Vaccination: Yes Hx Influenza Vaccination: Yes Hx Pneumococcal Vaccination: Yes - Home Medications Home Medications: Ambulatory Orders Medication Instructions Recorded Lactulose [Enulose] 10 gm PO BID #30 ml 04/09/18 Folic Acid 1 mg PO DAILY #30 tab 05/10/18 Acetaminophen [Tylenol 325mg tab] 650 mg PO Q4 PRN 06/01/18 Acetaminophen [Tylenol 325mg tab] 650 mg PO Q4 PRN 06/01/18 Acidoph/L.bulg/Bif.b/S.thermop 1 tab PO DAILY 06/01/18 [Bacid Caplet] LORazepam [Ativan] 1 mg PO Q6 PRN 06/01/18 Levetiracetam [Keppra] 500 mg PO Q12 06/01/18 Linezolid [Zyvox] 600 mg PO Q12 06/01/18 Omeprazole 40 mg PO BID 06/01/18 Vitamin B Complex [Super B-50 1 cap PO DAILY 06/01/18 Complex] - Allergies Allergies/Adverse Reactions: Allergies Allergy/AdvReac Type Severity Reaction Status Date / Time aspirin AdvReac GI Bleed Verified 06/14/18 17:35 ibuprofen [From Motrin] AdvReac GI Bleed Verified 06/14/18 17:35 naproxen AdvReac GI bleed Verified 06/14/18 17:35 NSAIDS (Non-Steroidal AdvReac GI bleed Verified 06/14/18 17:35 Anti-Inflamma Review of Systems ROS Statement: Except As Marked, All Systems Reviewed And Found Negative Physical Exam - Reviewed Nursing Documentation Reviewed: Yes Vital Signs Reviewed: Yes - Physical Exam Appears: Positive for: Well, Non-toxic, No Acute Distress. Negative for: Uncomfortable Head Exam: Positive for: ATRAUMATIC, NORMAL INSPECTION Skin: Positive for: Normal Color Neck: Positive for: Normal, Painless ROM, Supple. Negative for: Decreased ROM Cardiovascular/Chest: Positive for: Regular Rate, Rhythm Respiratory: Positive for: Normal Breath Sounds Pulses-Carotid (L): 2+ Pulses-Carotid (R): 2+ Pulses-Radial (L): 2+ Pulses-Radial (R): 2+ Gastrointestinal/Abdominal: Positive for: Normal Exam Back: Positive for: Normal Inspection. Negative for: L CVA Tenderness, R CVA Tenderness - ECG O2 Sat by Pulse Oximetry: 98 Medical Decision Making Medical Decision Making: Well person exam conducted and the patient discharged Pt stable for discharged Disposition - Clinical Impression Clinical Impression: Homeless - Patient ED Disposition Is Patient to be Admitted: No Doctor Will See Patient In The: Office Counseled Patient/Family Regarding: Diagnosis - Disposition Referrals: [facility] at [facility] [place] [Outside] Disposition: Routine/Home Disposition Time: 17:52 Condition: STABLE
== END 2018-06-14 18:20 | disposition home or self-care (01) ==
LOC: H.ER 16:50
DX: Z59.0 Homelessness (principal)

== ENCOUNTER 2018-06-14 19:30 | Emergency (ER) | payer MEDICAID ==
[2018-06-14 19:30] VITALS: BMI 23.7
[2018-06-14 19:40] VITALS: BP 148/80; PULSE 98; RESP 18; TEMP 98.2; O2SAT 99
== END 2018-06-14 19:47 | disposition home or self-care (01) ==
LOC: H.ER 19:30
DX: Z02.89 Encounter for other administrative examinations (principal)

== ENCOUNTER 2018-06-15 07:34 | Emergency (ER) | payer MEDICAID, OTHER ==
[2018-06-15 07:39] VITALS: BMI 23.4
[2018-06-15 07:40] VITALS: BP 119/68; PULSE 98; RESP 20; TEMP 99.7; O2SAT 98
--- NOTE | 2018-06-15 07:59 | ED PDOC ---
HPI: General Adult Time Seen by Provider: 06/15/18 07:54 Chief Complaint (Nursing): Seizure History Per: Patient Onset/Duration Of Symptoms: Days (2) Current Symptoms Are (Timing): Still Present Severity: Mild Additional Complaint(s): Generalized weakness, chronic but worse over past 2 days. Denies fever or chest pain. No seizures. No vomiting. Past Medical History Vital Signs: Last Vital Signs Temp 99.7 F H 06/15/18 07:39 Pulse 98 H 06/15/18 07:39 Resp 20 06/15/18 07:39 BP 119/68 06/15/18 07:39 Pulse Ox 98 06/15/18 07:39 - Medical History PMH: Anemia, Anxiety, Back Problems (herniated disc), Deep Vein Thrombosis, Gastritis, Gall Bladder Disease (Cholelithiasis), HTN, Pancreatitis, Pneumonia, Seizures, Chronic Pain (left shoulder) Denies: CHF, Fractures, HIV, Hypercholesterolemia, Chronic Kidney Disease, Sexually Transmitted Disease - Surgical History Surgical History: Endoscopy - Family History Family History: States: Unknown Family Hx - Immunization History Hx Tetanus Toxoid Vaccination: Yes Hx Influenza Vaccination: Yes Hx Pneumococcal Vaccination: Yes - Home Medications Home Medications: Ambulatory Orders Medication Instructions Recorded Lactulose [Enulose] 10 gm PO BID #30 ml 04/09/18 Folic Acid 1 mg PO DAILY #30 tab 05/10/18 Acetaminophen [Tylenol 325mg tab] 650 mg PO Q4 PRN 06/01/18 Acetaminophen [Tylenol 325mg tab] 650 mg PO Q4 PRN 06/01/18 Acidoph/L.bulg/Bif.b/S.thermop 1 tab PO DAILY 06/01/18 [Bacid Caplet] LORazepam [Ativan] 1 mg PO Q6 PRN 06/01/18 Levetiracetam [Keppra] 500 mg PO Q12 06/01/18 Linezolid [Zyvox] 600 mg PO Q12 06/01/18 Omeprazole 40 mg PO BID 06/01/18 Vitamin B Complex [Super B-50 1 cap PO DAILY 06/01/18 Complex] - Allergies Allergies/Adverse Reactions: Allergies Allergy/AdvReac Type Severity Reaction Status Date / Time aspirin AdvReac GI Bleed Verified 06/15/18 00:12 ibuprofen [From Motrin] AdvReac GI Bleed Verified 06/15/18 00:12 naproxen AdvReac GI bleed Verified 06/15/18 00:12 NSAIDS (Non-Steroidal AdvReac GI bleed Verified 06/15/18 00:12 Anti-Inflamma Review of Systems ROS Statement: Except As Marked, All Systems Reviewed And Found Negative Constitutional: Positive for: Weakness Physical Exam - Reviewed Nursing Documentation Reviewed: Yes Vital Signs Reviewed: Yes - Physical Exam Appears: Positive for: Non-toxic, No Acute Distress Head Exam: Positive for: ATRAUMATIC, NORMAL INSPECTION, NORMOCEPHALIC Skin: Positive for: Normal Color, Warm, DRY Eye Exam: Positive for: EOMI, Normal appearance, PERRL ENT: Positive for: Normal ENT Inspection Neck: Positive for: Normal, Painless ROM Cardiovascular/Chest: Positive for: Regular Rate, Rhythm Respiratory: Positive for: CNT, Normal Breath Sounds Gastrointestinal/Abdominal: Positive for: Normal Exam, Soft Back: Positive for: Normal Inspection Extremity: Positive for: Normal ROM Neurologic/Psych: Positive for: Alert, Oriented - ECG O2 Sat by Pulse Oximetry: 98 Disposition - Clinical Impression Clinical Impression: Ambulatory dysfunction - Patient ED Disposition Is Patient to be Admitted: No Counseled Patient/Family Regarding: Diagnosis, Need For Followup - Disposition Referrals: [facility] [Outside] Disposition: Routine/Home Disposition Time: 07:59 Condition: FAIR Instructions: Generalized Weakness (DC)
== END 2018-06-15 08:10 | disposition home or self-care (01) ==
LOC: H.ER 07:34 → SUPCPDRO 07:34 → H.ER 08:10
DX: R26.9 Unspecified abnormalities of gait and mobility (principal)

== ENCOUNTER 2018-06-17 08:27 | Emergency (ER) | payer MEDICAID ==
[2018-06-17 08:27] VITALS: BMI 23.4
[2018-06-17 08:31] VITALS: RESP 18
--- NOTE | 2018-06-17 10:35 | ED PDOC ---
Lower Extremity Pain/Injury Time Seen by Provider: 06/17/18 10:34 Chief Complaint (Nursing): Lower Extremity Problem/Injury Chief Complaint (Provider): thigh pain History Per: Patient (53 y/o male here with bilateral thigh pain. Denies any other complaints. No falls/injury.) Past Medical History Reviewed: Historical Data, Nursing Documentation, Vital Signs Vital Signs: Last Vital Signs Temp 99.9 F H 06/17/18 08:30 Pulse 97 H 06/17/18 08:30 Resp 18 06/17/18 08:30 BP 120/59 L 06/17/18 08:30 Pulse Ox 98 06/17/18 08:30 - Medical History PMH: Anemia, Anxiety, Back Problems (herniated disc), Deep Vein Thrombosis, Gastritis, Gall Bladder Disease (Cholelithiasis), HTN, Pancreatitis, Pneumonia, Seizures, Chronic Pain (left shoulder) Denies: CHF, Fractures, HIV, Hypercholesterolemia, Chronic Kidney Disease, Sexually Transmitted Disease - Surgical History Surgical History: Endoscopy - Family History Family History: States: Unknown Family Hx - Immunization History Hx Tetanus Toxoid Vaccination: Yes Hx Influenza Vaccination: Yes Hx Pneumococcal Vaccination: Yes - Home Medications Home Medications: Ambulatory Orders Medication Instructions Recorded Lactulose [Enulose] 10 gm PO BID #30 ml 04/09/18 Folic Acid 1 mg PO DAILY #30 tab 05/10/18 Acetaminophen [Tylenol 325mg tab] 650 mg PO Q4 PRN 06/01/18 Acetaminophen [Tylenol 325mg tab] 650 mg PO Q4 PRN 06/01/18 Acidoph/L.bulg/Bif.b/S.thermop 1 tab PO DAILY 06/01/18 [Bacid Caplet] LORazepam [Ativan] 1 mg PO Q6 PRN 06/01/18 Levetiracetam [Keppra] 500 mg PO Q12 06/01/18 Linezolid [Zyvox] 600 mg PO Q12 06/01/18 Omeprazole 40 mg PO BID 06/01/18 Vitamin B Complex [Super B-50 1 cap PO DAILY 06/01/18 Complex] - Allergies Allergies/Adverse Reactions: Allergies Allergy/AdvReac Type Severity Reaction Status Date / Time aspirin AdvReac GI Bleed Verified 06/17/18 09:15 ibuprofen [From Motrin] AdvReac GI Bleed Verified 06/17/18 09:15 naproxen AdvReac GI bleed Verified 06/17/18 09:15 NSAIDS (Non-Steroidal AdvReac GI bleed Verified 06/17/18 09:15 Anti-Inflamma Review of Systems ROS Statement: Except As Marked, All Systems Reviewed And Found Negative Physical Exam - Reviewed Nursing Documentation Reviewed: Yes Vital Signs Reviewed: Yes - Physical Exam Appears: Positive for: Well, Non-toxic, No Acute Distress Head Exam: Positive for: ATRAUMATIC, NORMAL INSPECTION, NORMOCEPHALIC Skin: Positive for: Normal Color, Warm, DRY Eye Exam: Positive for: EOMI, Normal appearance, PERRL ENT: Positive for: Normal ENT Inspection Neck: Positive for: Normal, Painless ROM Cardiovascular/Chest: Positive for: Regular Rate, Rhythm Respiratory: Positive for: CNT, Normal Breath Sounds Gastrointestinal/Abdominal: Positive for: Normal Exam, Soft Back: Positive for: Normal Inspection Extremity: Positive for: Normal ROM Neurologic/Psych: Positive for: Alert, Oriented - ECG O2 Sat by Pulse Oximetry: 98 Disposition - Clinical Impression Clinical Impression: Myalgia - Patient ED Disposition Is Patient to be Admitted: No - Disposition Referrals: [facility] [Outside] Disposition: Routine/Home Disposition Time: 10:42 Condition: FAIR Instructions: Muscle and Bone Pain (DC)
[2018-06-17 12:00] VITALS: BP 124/79; PULSE 69; TEMP 99.1; O2SAT 99
== END 2018-06-17 12:15 | disposition home or self-care (01) ==
LOC: H.ER 08:27
DX: M79.18 Myalgia, other site (principal)

== ENCOUNTER 2018-06-23 15:13 | Emergency (ER) | payer MEDICAID ==
[2018-06-23 15:13] VITALS: BMI 23.4
[2018-06-23 15:35] VITALS: BP 120/66; PULSE 82; RESP 16; TEMP 97.6; O2SAT 97
== END 2018-06-23 16:30 | disposition left against medical advice (07) ==
LOC: H.ER 15:13
DX: Z02.89 Encounter for other administrative examinations (principal)

== ENCOUNTER 2018-06-24 09:17 | Emergency (ER) | payer MEDICAID ==
[2018-06-24 09:17] VITALS: BMI 23.4
[2018-06-24 10:04] VITALS: BP 129/71; PULSE 89; RESP 20; TEMP 97.7; O2SAT 97
--- NOTE | 2018-06-24 10:21 | ED PDOC ---
HPI: Eye Injury/Pain Time Seen by Provider: 06/24/18 10:15 History Per: Patient Onset/Duration Of Symptoms: Days (2) Current Symptoms Are (Timing): Still Present Severity: Mild Additional Complaint(s): Right eye redness and discharge and irritation x2 days. no injury or change in vision. Past Medical History Vital Signs: Last Vital Signs Temp 97.7 F 06/24/18 10:02 Pulse 89 06/24/18 10:02 Resp 20 06/24/18 10:02 BP 129/71 06/24/18 10:02 Pulse Ox 97 06/24/18 10:02 - Medical History PMH: Anemia, Anxiety, Back Problems (herniated disc), Deep Vein Thrombosis, Gastritis, Gall Bladder Disease (Cholelithiasis), HTN, Pancreatitis, Pneumonia, Seizures, Chronic Pain (left shoulder) Denies: CHF, Fractures, HIV, Hypercholesterolemia, Chronic Kidney Disease, Sexually Transmitted Disease - Surgical History Surgical History: Endoscopy - Family History Family History: States: Unknown Family Hx - Immunization History Hx Tetanus Toxoid Vaccination: Yes Hx Influenza Vaccination: Yes Hx Pneumococcal Vaccination: Yes - Home Medications Home Medications: Ambulatory Orders Medication Instructions Recorded Lactulose [Enulose] 10 gm PO BID #30 ml 04/09/18 Folic Acid 1 mg PO DAILY #30 tab 05/10/18 Acetaminophen [Tylenol 325mg tab] 650 mg PO Q4 PRN 06/01/18 Acetaminophen [Tylenol 325mg tab] 650 mg PO Q4 PRN 06/01/18 Acidoph/L.bulg/Bif.b/S.thermop 1 tab PO DAILY 06/01/18 [Bacid Caplet] LORazepam [Ativan] 1 mg PO Q6 PRN 06/01/18 Levetiracetam [Keppra] 500 mg PO Q12 06/01/18 Linezolid [Zyvox] 600 mg PO Q12 06/01/18 Omeprazole 40 mg PO BID 06/01/18 Vitamin B Complex [Super B-50 1 cap PO DAILY 06/01/18 Complex] Tobramycin 0.3% [Tobramycin 5 Ml] 1 drop OP TID #1 bottle 06/24/18 - Allergies Allergies/Adverse Reactions: Allergies Allergy/AdvReac Type Severity Reaction Status Date / Time aspirin AdvReac GI Bleed Verified 01/03/19 15:33 ibuprofen [From Motrin] AdvReac GI Bleed Verified 06/23/18 15:33 naproxen AdvReac GI bleed Verified 06/23/18 15:33 NSAIDS (Non-Steroidal AdvReac GI bleed Verified 06/23/18 15:33 Anti-Inflamma Review of Systems Constitutional: Negative for: Fever Eyes: Positive for: Conjunctivae Inflammation, Redness. Negative for: Vision Change Physical Exam - Physical Exam Eye Exam: Positive for: PERRL, Conjunctival injection - ECG O2 Sat by Pulse Oximetry: 97 Disposition - Clinical Impression Clinical Impression: Conjunctivitis - Patient ED Disposition Is Patient to be Admitted: No Counseled Patient/Family Regarding: Diagnosis, Need For Followup, Rx Given - Disposition Referrals: Christian Massey MD [Staff Provider] - Disposition: Routine/Home Disposition Time: 10:22 Condition: FAIR Prescriptions: Tobramycin 0.3% [Tobramycin 5 Ml] 1 drop OP TID #1 bottle Instructions: Conjunctivitis ([place])
== END 2018-06-24 10:30 | disposition home or self-care (01) ==
LOC: H.ER 09:17
DX: H10.9 Unspecified conjunctivitis (principal); I10 Essential (primary) hypertension; Z86.718 Personal history of other venous thrombosis and embolism; G89.29 Other chronic pain

== ENCOUNTER 2018-06-27 07:36 | Emergency (ER) | payer MEDICAID ==
[2018-06-27 07:36] VITALS: BMI 23.4
[2018-06-27 07:48] VITALS: PULSE 72; TEMP 99; O2SAT 98
[2018-06-27] MEDS ORDERED: Ofloxacin Ophth 0.3% Soln OU STA (10:19)
[2018-06-27] MEDS ORDERED: Fluorescein 1 mg Ophthalmic Strip OU ONE (10:26)
[2018-06-27] MEDS ORDERED: Tetracaine 0.5% Ophth 2 ML BOTTLE OU ONE (10:27)
--- NOTE | 2018-06-27 11:49 | ED PDOC ---
HPI: Eye Injury/Pain Time Seen by Provider: 06/27/18 09:13 Chief Complaint (Nursing): Eye Problem Chief Complaint (Provider): Eye Problem History Per: Patient History/Exam Limitations: no limitations Onset/Duration Of Symptoms: Persistent Current Symptoms Are (Timing): Still Present Quality: "Pain" Associated Symptoms: Pain Additional Complaint(s): 53 year old male presents to the ED with continued, worsening right eye pain. Patient reports having difficulty removing contacts for a few days. Patient is well known to this ED for multiple visits. Chart review and history show no prior mention of contact use. He states that he has been using Tobramycin drops everyday without improvement of symptoms. Offers no other complaints. PMD: none provided Past Medical History Reviewed: Historical Data, Nursing Documentation, Vital Signs Vital Signs: Last Vital Signs Temp 99 F 06/27/18 07:46 Pulse 72 06/27/18 07:46 Resp 20 06/27/18 07:46 BP Pulse Ox 98 06/27/18 07:46 - Medical History PMH: Anemia, Anxiety, Back Problems (herniated disc), Deep Vein Thrombosis, Gastritis, Gall Bladder Disease (Cholelithiasis), HTN, Pancreatitis, Pneumonia, Seizures, Chronic Pain (left shoulder) Denies: CHF, Fractures, HIV, Hypercholesterolemia, Chronic Kidney Disease, Sexually Transmitted Disease - Surgical History Surgical History: Endoscopy - Family History Family History: States: Unknown Family Hx - Immunization History Hx Tetanus Toxoid Vaccination: Yes Hx Influenza Vaccination: Yes Hx Pneumococcal Vaccination: Yes - Home Medications Home Medications: Ambulatory Orders Medication Instructions Recorded RX: Lactulose [Enulose] 10 gm PO BID #30 ml 04/09/18 RX: Folic Acid 1 mg PO DAILY #30 tab 05/10/18 Acetaminophen [Tylenol 325mg tab] 650 mg PO Q4 PRN 06/01/18 Acetaminophen [Tylenol 325mg tab] 650 mg PO Q4 PRN 06/01/18 Acidoph/L.bulg/Bif.b/S.thermop 1 tab PO DAILY 06/01/18 [Bacid Caplet] LORazepam [Ativan] 1 mg PO Q6 PRN 06/01/18 Omeprazole 40 mg PO BID 06/01/18 RX: Levetiracetam [Keppra] 500 mg PO Q12 06/01/18 RX: Linezolid [Zyvox] 600 mg PO Q12 06/01/18 RX: Vitamin B Complex [Super B-50 1 cap PO DAILY 06/01/18 Complex] Tobramycin 0.3% [Tobramycin 5 Ml] 1 drop OP TID #1 bottle 06/24/18 Polymyxin/Trimethoprim Sulfate 1 drop RIGHTEYE Q3 #1 bottle 06/28/18 [Polytrim Ophth Soln] - Allergies Allergies/Adverse Reactions: Allergies Allergy/AdvReac Type Severity Reaction Status Date / Time aspirin AdvReac GI Bleed Verified 06/27/18 07:46 ibuprofen [From Motrin] AdvReac GI Bleed Verified 06/27/18 07:46 naproxen AdvReac GI bleed Verified 06/27/18 07:46 NSAIDS (Non-Steroidal AdvReac GI bleed Verified 06/27/18 07:46 Anti-Inflamma Review of Systems ROS Statement: Except As Marked, All Systems Reviewed And Found Negative Eyes: Positive for: Pain (right eye pain) Physical Exam - Reviewed Nursing Documentation Reviewed: Yes Vital Signs Reviewed: Yes - Physical Exam Appears: Positive for: No Acute Distress Head Exam: Positive for: ATRAUMATIC, NORMAL INSPECTION, NORMOCEPHALIC Skin: Positive for: Normal Color, Warm, Dry Eye Exam: Positive for: PERRL (with consensual photophobia), Other (right eye is swollen, with erythematous conjunctiva and clouding over cornea) Cardiovascular/Chest: Positive for: Regular Rate, Rhythm. Negative for: Murmur Respiratory: Positive for: Normal Breath Sounds. Negative for: Respiratory Distress Neurologic/Psych: Positive for: Alert, Oriented. Negative for: Motor/Sensory Deficits - ECG O2 Sat by Pulse Oximetry: 98 (RA) Pulse Ox Interpretation: Normal Medical Decision Making Medical Decision Makin:16 MDM: conjunctivitis in a contact lens wearer Contact lens was removed Ofloxacin eyedrops order for pseudomonas coverage Will perform fluorescein stain exam 13:44 Fluorescein exam shows no ulcerations or other trauma to the eye Eyelid inversion shows no foreign bodies Following tetracaine, pt states pain is resolved and that he can see out of right eye. Pt repeats dosing of Ofloxacin every 2 hours. D/c with oxofloxacin and follow up with program associate. Scribe Attestation: Documented by Gloria Moran acting as a scribe for Haydee España MD Provider Scribe Attestation: All medical record entries made by the Scribe were at my direction and personally dictated by me. I have reviewed the chart and agree that the record accurately reflects my personal performance of the history, physical exam, medical decision making, and the department course for this patient. I have also personally directed, reviewed, and agree with the discharge instructions and disposition. Disposition - Clinical Impression Clinical Impression: Conjunctivitis - Patient ED Disposition Is Patient to be Admitted: No - Disposition Referrals: Christian Massey MD [Staff Provider] - Disposition: Routine/Home Disposition Time: 13:44 Condition: IMPROVED Additional Instructions: DO NOT WEAR CONTACT LENSES UNTIL INFECTION HAS COMPLETELY CLEARED!!!. Use eye drops every 2 hours for the first 2 days and then ever 4 hours for 3 days. Follow up with the program associate in 24 to 28 hours. Return to the emergency department if symptoms worsen or if new symptoms develop. Instructions: Conjunctivitis ([place]) (DC) Forms: [employer] (Liberian) Print Language: TELUGU
[2018-06-27 14:04] VITALS: BP 136/76; RESP 18
== END 2018-06-27 14:05 | disposition home or self-care (01) ==
LOC: H.ER 07:36
DX: H10.9 Unspecified conjunctivitis (principal); G89.29 Other chronic pain; I10 Essential (primary) hypertension; Z86.718 Personal history of other venous thrombosis and embolism; Z88.6 Allergy status to analgesic agent

== ENCOUNTER 2018-06-27 22:52 | Emergency (ER) | payer MEDICAID ==
[2018-06-27 22:53] VITALS: BMI 23.4
[2018-06-28 00:15] VITALS: RESP 18
--- NOTE | 2018-06-28 05:47 | ED PDOC ---
HPI: Psych/Substance Abuse Time Seen by Provider: 06/28/18 04:04 Chief Complaint (Nursing): Alcohol Ingestion Chief Complaint (Provider): Seizure History Per: Patient History/Exam Limitations: no limitations Onset/Duration Of Symptoms: Hrs ([employer]) Additional Complaint(s): 53 y/o male with a PMHx of seizure disorder presents to the ED for evaluation of a seizure. Patient is well known to ED provider and staff for frequent visits and bed malingering behavior. Past Medical History Reviewed: Historical Data, Nursing Documentation, Vital Signs Vital Signs: Last Vital Signs Temp 98.7 F 06/28/18 00:11 Pulse 76 06/28/18 00:11 Resp 18 06/28/18 00:11 BP 126/67 06/28/18 00:11 Pulse Ox 99 06/28/18 00:11 - Medical History PMH: Anemia, Anxiety, Back Problems (herniated disc), Deep Vein Thrombosis, Gastritis, Gall Bladder Disease (Cholelithiasis), HTN, Pancreatitis, Pneumonia, Seizures, Chronic Pain (left shoulder) Denies: CHF, Fractures, HIV, Hypercholesterolemia, Chronic Kidney Disease, Sexually Transmitted Disease - Surgical History Surgical History: Endoscopy - Family History Family History: States: Unknown Family Hx - Immunization History Hx Tetanus Toxoid Vaccination: Yes Hx Influenza Vaccination: Yes Hx Pneumococcal Vaccination: Yes - Home Medications Home Medications: Ambulatory Orders Medication Instructions Recorded Lactulose [Enulose] 10 gm PO BID #30 ml 04/09/18 Folic Acid 1 mg PO DAILY #30 tab 05/10/18 Acetaminophen [Tylenol 325mg tab] 650 mg PO Q4 PRN 06/01/18 Acetaminophen [Tylenol 325mg tab] 650 mg PO Q4 PRN 06/01/18 Acidoph/L.bulg/Bif.b/S.thermop 1 tab PO DAILY 06/01/18 [Bacid Caplet] LORazepam [Ativan] 1 mg PO Q6 PRN 06/01/18 Levetiracetam [Keppra] 500 mg PO Q12 06/01/18 Linezolid [Zyvox] 600 mg PO Q12 06/01/18 Omeprazole 40 mg PO BID 06/01/18 Vitamin B Complex [Super B-50 1 cap PO DAILY 06/01/18 Complex] Tobramycin 0.3% [Tobramycin 5 Ml] 1 drop OP TID #1 bottle 06/24/18 Polymyxin/Trimethoprim Sulfate 1 drop RIGHTEYE Q3 #1 bottle 06/28/18 [Polytrim Ophth Soln] - Allergies Allergies/Adverse Reactions: Allergies Allergy/AdvReac Type Severity Reaction Status Date / Time aspirin AdvReac GI Bleed Verified 06/27/18 07:46 ibuprofen [From Motrin] AdvReac GI Bleed Verified 06/27/18 07:46 naproxen AdvReac GI bleed Verified 06/27/18 07:46 NSAIDS (Non-Steroidal AdvReac GI bleed Verified 06/27/18 07:46 Anti-Inflamma Review of Systems ROS Statement: Except As Marked, All Systems Reviewed And Found Negative Neurological: Positive for: Seizures Physical Exam - Reviewed Nursing Documentation Reviewed: Yes Vital Signs Reviewed: Yes - Physical Exam Appears: Positive for: Well, Non-toxic, No Acute Distress Head Exam: Positive for: ATRAUMATIC, NORMOCEPHALIC Skin: Positive for: Normal Color, Warm, DRY Eye Exam: Positive for: Conjunctival injection (Chemosis of R eye) ENT: Positive for: Normal ENT Inspection Neck: Positive for: Normal, Painless ROM Cardiovascular/Chest: Positive for: Regular Rate, Rhythm. Negative for: Murmur Respiratory: Positive for: Normal Breath Sounds. Negative for: Respiratory Distress Gastrointestinal/Abdominal: Positive for: Normal Exam, Soft. Negative for: Te nderness Back: Positive for: Normal Inspection. Negative for: L CVA Tenderness, R CVA Tenderness, Vertebral Tenderness Extremity: Positive for: Normal ROM. Negative for: Pedal Edema, Deformity Neurologic/Psych: Positive for: Alert, Oriented. Negative for: Motor/Sensory Deficits - ECG O2 Sat by Pulse Oximetry: 99 (RA) Pulse Ox Interpretation: Normal Medical Decision Making Medical Decision Making: Time: 04:04 A/P: Seizure. Well known to ED for malingering and bedseeking. PAtient states he lost his prescription for eyedrops. Scribe Attestation: Documented by Raghu Salazar acting as a scribe for Murphy Chiu MD. Provider Scribe Attestation: All medical record entries made by the Scribe were at my direction and personally dictated by me. I have reviewed the chart and agree that the record accurately reflects my personal performance of the history, physical exam, medical decision making, and the department course for this patient. I have also personally directed, reviewed, and agree with the discharge instructions and disposition. Disposition - Clinical Impression Clinical Impression: Conjunctivitis - Patient ED Disposition Is Patient to be Admitted: No - Disposition Referrals: Christian Massey MD [Staff Provider] - Disposition: Routine/Home Disposition Time: 06:14 Condition: STABLE Prescriptions: Polymyxin/Trimethoprim Sulfate [Polytrim Ophth Soln] 1 drop RIGHTEYE Q3 #1 bottle Instructions: How to Use Eye Drops, Conjunctivitis ([place]) (DC) Forms: [employer] (Slovenian)
[2018-06-28 06:53] VITALS: BP 137/69; PULSE 80; TEMP 98.6; O2SAT 100
== END 2018-06-28 06:51 | disposition home or self-care (01) ==
LOC: H.ER 22:52
DX: H10.9 Unspecified conjunctivitis (principal); G40.909 Epilepsy, unspecified, not intractable, without status epilepticus; G89.29 Other chronic pain; I10 Essential (primary) hypertension; Z86.718 Personal history of other venous thrombosis and embolism; Z88.6 Allergy status to analgesic agent

== ENCOUNTER 2018-06-29 07:18 | Emergency (ER) | payer MEDICAID ==
[2018-06-29 07:25] VITALS: BMI 23.0
[2018-06-29] MEDS ORDERED: Ciprofloxacin 0.3% OPTH SOLN OD STA (07:44)
[2018-06-29] MEDS ORDERED: Gentamicin Sulfate 0.3% Ophth SOLN OD STA (07:44)
[2018-06-29] MEDS ORDERED: Gentamicin Sulfate 0.3% Ophth SOLN ONE ×2 (07:52→10:01)
[2018-06-29] MEDS ORDERED: Sodium Chloride 0.9% 50 ML IV ONE (08:03)
[2018-06-29] MEDS ORDERED: Iohexol 300 100 ML IJ ONE (08:03)
[2018-06-29 08:37] LABS: BASO % 0.7 % (0.0-2.0); EOS # 0.2 K/uL (0.0-0.7); EOS % 4.2 % (0.0-4.0); HEMOGLOBIN 8.9 g/dL (12.0-18.0); LYMPH # 0.6 K/uL (1.0-4.3); LYMPH % 12.2 % (20.0-40.0); MEAN CELL VOLUME 87.7 fl (80.0-94.0); MEAN CORPUSCULAR HGB CONC 31.9 g/dL (33.0-37.0); MEAN PLATELET VOLUME 7.3 fl (7.2-11.7); MONO # 0.5 K/uL (0.0-0.8); MONO % 10.9 % (0.0-10.0); NEUT # 3.2 K/uL (1.8-7.0); RBC 3.18 Mil/uL (4.40-5.90); RED CELL DISTRIBUTION WIDTH 20.1 % (11.5-14.5); WHITE BLOOD COUNT 4.5 K/uL (4.8-10.8)
[2018-06-29 08:46] LABS: BLOOD UREA NITROGEN 21 mg/dl (9-20); CALCIUM 8.7 mg/dL (8.4-10.2); GFR NON-AFRICAN AMERICAN > 60
--- NOTE | 2018-06-29 10:21 | ED PDOC ---
HPI: Eye Injury/Pain Time Seen by Provider: 06/29/18 07:32 Chief Complaint (Nursing): Eye Problem Chief Complaint (Provider): R eye pain History Per: Patient History/Exam Limitations: no limitations Onset/Duration Of Symptoms: Days Current Symptoms Are (Timing): Still Present Severity: Mild Quality: Sharp Wears Contact Lens?: Yes Associated Symptoms: Pain, Decreased Vision Additional History Per: Prior Records Additional Complaint(s): 53yo male known to ED for frequent visits represents now with persistent R eye pain and redness. Seen multiple times over the last week for R eye conjunctivitis, told to take contact out, seemingly noncompliant and maintained contact use until 2 days ago, prior had contacts in for several months straight per patient. He states he prior lost tobramycin Rx and re-prescribed polytrim drops, told myself he took the drops, then admitted he did not. Known history of alcohol abuse, significant GI bleeds in past, partially homeless. He denies any vision from right eye including light. Past Medical History Reviewed: Historical Data, Nursing Documentation, Vital Signs Vital Signs: Last Vital Signs Temp 98.1 F 06/29/18 07:23 Pulse 105 H 06/29/18 07:23 Resp 20 06/29/18 07:23 BP 145/70 06/29/18 07:23 Pulse Ox 97 06/29/18 07:23 - Medical History PMH: Anemia, Anxiety, Back Problems (herniated disc), Deep Vein Thrombosis, Gastritis, Gall Bladder Disease (Cholelithiasis), HTN, Pancreatitis, Pneumonia, Seizures, Chronic Pain (left shoulder) Denies: CHF, Fractures, HIV, Hypercholesterolemia, Chronic Kidney Disease, Sexually Transmitted Disease - Surgical History Surgical History: Endoscopy - Family History Family History: States: Unknown Family Hx - Immunization History Hx Tetanus Toxoid Vaccination: Yes Hx Influenza Vaccination: Yes Hx Pneumococcal Vaccination: Yes - Home Medications Home Medications: Ambulatory Orders Medication Instructions Recorded RX: Lactulose [Enulose] 10 gm PO BID #30 ml 04/09/18 RX: Folic Acid 1 mg PO DAILY #30 tab 05/10/18 Acetaminophen [Tylenol 325mg tab] 650 mg PO Q4 PRN 06/01/18 Acetaminophen [Tylenol 325mg tab] 650 mg PO Q4 PRN 06/01/18 Acidoph/L.bulg/Bif.b/S.thermop 1 tab PO DAILY 06/01/18 [Bacid Caplet] LORazepam [Ativan] 1 mg PO Q6 PRN 06/01/18 Omeprazole 40 mg PO BID 06/01/18 RX: Levetiracetam [Keppra] 500 mg PO Q12 06/01/18 RX: Linezolid [Zyvox] 600 mg PO Q12 06/01/18 RX: Vitamin B Complex [Super B-50 1 cap PO DAILY 06/01/18 Complex] Tobramycin 0.3% [Tobramycin 5 Ml] 1 drop OP TID #1 bottle 06/24/18 Polymyxin/Trimethoprim Sulfate 1 drop RIGHTEYE Q3 #1 bottle 06/28/18 [Polytrim Ophth Soln] - Allergies Allergies/Adverse Reactions: Allergies Allergy/AdvReac Type Severity Reaction Status Date / Time aspirin AdvReac GI Bleed Verified 06/27/18 07:46 ibuprofen [From Motrin] AdvReac GI Bleed Verified 06/27/18 07:46 naproxen AdvReac GI bleed Verified 06/27/18 07:46 NSAIDS (Non-Steroidal AdvReac GI bleed Verified 06/27/18 07:46 Anti-Inflamma Review of Systems Constitutional: Negative for: Fever Eyes: Positive for: Pain, Vision Change, Conjunctivae Inflammation, Eyelid Inflammation, Redness Cardiovascular: Negative for: Chest Pain Respiratory: Negative for: Shortness of Breath Gastrointestinal: Negative for: Melena, Hematochezia Genitourinary Male: Negative for: Dysuria Neurological: Negative for: Weakness, Headache, Dizziness Psych: Negative for: Suicidal ideation Physical Exam - Reviewed Nursing Documentation Reviewed: Yes Vital Signs Reviewed: Yes - Physical Exam Appears: Positive for: Non-toxic Eye Exam: Positive for: Other (R eye with significant chemosis, clouding of cornea with likely hypopyon, injection, yellow discharge and periorbital edema) Respiratory: Negative for: Respiratory Distress Gastrointestinal/Abdominal: Negative for: Tenderness Extremity: Positive for: Other (mild scattered abrasions and ecchymosis) Neurologic/Psych: Negative for: Motor/Sensory Deficits - Laboratory Results Result Diagrams: 06/29/18 08:27 06/29/18 08:27 - ECG O2 Sat by Pulse Oximetry: 97 Pulse Ox Interpretation: Normal Medical Decision Making Medical Decision Making: visual acuity- R eye no vision to hand waiving or light CT orbits and bloodwork obtained, preseptal involvement per radiologist Hgb stable. Consistent mild leukopenia. ETOH neg. Eye cultured and Gent/Cipro drops started. IV Zosyn given. D/w Dr Massey, requests patient be sent to office as cannot perform bedside exam for likely corneal ulcer. Cab voucher provided to get to ophtho office now, also return voucher, explained to optho office if he requires admission to return to ER. Dr Massey office and partner called back stating needs transfer to [facility], encouraged to return to [facility] ED for transfer if unable to provide transportation to [facility]. Abx drops to be maintained. Patient told in laymen terms this infection is sight threatening and may require hospitalization, to ophtho office now for slit lamp exam not avail at [facility] then likely return to ER or transfer from ophtho office. Disposition - Clinical Impression Clinical Impression: Endophthalmitis, Corneal ulcer - Patient ED Disposition Is Patient to be Admitted: No (Dr Massey ophtho office stat, provided cab voucher to office) Counseled Patient/Family Regarding: Studies Performed, Diagnosis, Need For Followup - Disposition Referrals: Christian Massey MD [Staff Provider] - Disposition Time: 11:01 Condition: FAIR Forms: [facility] (Malay) - POA Present On Arrival: None
--- NOTE | 2018-06-29 11:00 | CT ---
Date of service: 06/29/2018 PROCEDURE: CT ORBITS WITH CONTRAST. HISTORY: R orbital cellulitis COMPARISON: None available. TECHNIQUE: Following administration of intravenous iodinated contrast, axial CT images of the orbits were obtained. Coronal and sagittal reformats were generated. Intravenous contrast dose: 95 cc Omnipaque 300 Radiation dose: Total exam DLP = 812.21 mGy-cm. This CT exam was performed using one or more of the following dose reduction techniques: Automated exposure control, adjustment of the mA and/or kV according to patient size, and/or use of iterative reconstruction technique. FINDINGS: RIGHT ORBIT: RIGHT BONY ORBIT: Normal. RIGHT INTRAORBITAL STRUCTURES: Preseptal periorbital soft tissue swelling on the right. Globe: Normal. Extraocular muscles: Normal. Post septal space: Normal. Optic Nerve: Normal. Lacrimal Apparatus: Soft tissue swelling extends to and includes the lacrimal apparatus. RIGHT PRESEPTAL SOFT TISSUES: Inflammatory changes, soft tissue swelling limited to the preseptal space. LEFT ORBIT: LEFT BONY ORBIT: Normal. LEFT INTRAORBITAL STRUCTURES: Globe: Normal. Extraocular muscles: Normal. Post septal space: Normal. Optic Nerve: Normal. Lacrimal Apparatus: Normal. LEFT PRESEPTAL SOFT TISSUES: Normal. OTHER: Chronic ethmoid and bilateral maxillary sinus disease. IMPRESSION: Unilateral, right preseptal soft tissue swelling. The lacrimal apparatus is involved. The findings do not extend to the globe, retro conal structures.
[2018-06-29] MEDS ORDERED: Piperacillin/Tazobact 4.5 GM in Sodium Chloride 0.9% 100 ML IVPB STA (11:12)
[2018-06-29] MEDS ORDERED: Oxycodone/Acetaminophen 5/325 mg Tab ONE (15:35)
[2018-06-29] MEDS ORDERED: Vancomycin 1 g Inj ONE (16:49)
[2018-06-29 19:21] VITALS: BP 122/83; PULSE 78; RESP 18; TEMP 98; O2SAT 100
== END 2018-06-29 18:35 | disposition short-term general hospital (02) ==
LOC: H.ER 07:18
DX: H44.009 Unspecified purulent endophthalmitis, unspecified eye (principal); H16.009 Unspecified corneal ulcer, unspecified eye; G89.29 Other chronic pain; I10 Essential (primary) hypertension; Z86.718 Personal history of other venous thrombosis and embolism
CPT/HCPCS: 70481; 80048; 80320; 85025; 87070; 96374; 99284; J2543; Q9967

== ENCOUNTER 2018-06-29 15:05 | Emergency (ER) | payer MEDICAID ==
[2018-06-29 15:06] VITALS: BMI 23.0
[2018-06-29 15:23] VITALS: RESP 18; O2SAT 98
[2018-06-29] MEDS ORDERED: Oxycodone/Acetaminophen 5/325 mg Tab PO ONE (15:27)
[2018-06-29] MEDS: Gentamicin Sulfate 0.3% Ophth SOLN OD SCH ×2 (16:50→18:05)
--- NOTE | 2018-06-29 17:03 | RAD ---
Date of service: 06/29/2018 HISTORY: possible admission COMPARISON: 05/18/2018 FINDINGS: LUNGS: Prior endotracheal tube no longer seen. Lung volumes within normal limits on this exam. There is ill definition to the perihilar bronchovascular markings and a viral pneumonitis or other interstitial or peribronchial process is suspect some extent ill-defined perihilar bronchovascular markings were noted previously. There is also some vague opacity over the right inferolateral hemithorax inferred as blending healing right rib fracture callus and pleural reaction. No interval dense consolidation seen. PLEURA: No significant pleural effusion identified, no pneumothorax apparent. CARDIOVASCULAR: There is presence of aortic atherosclerotic calcification on x-ray. Minimal cardiomegaly. Pulmonary venous congestion suspect. Probably slightly increased since prior exam. Additional perihilar bronchovascular pathology pneumonitis peribronchial thickening inflammatory change also need to be considered. OSSEOUS STRUCTURES: Comminuted clavicular comminuted fracture subacute to chronic in appearance. Similarly in terms of timing are healing right lateral inferior rib fractures. VISUALIZED UPPER ABDOMEN: Normal. OTHER FINDINGS: None. IMPRESSION: No dense consolidation. Ill-defined and prominent perihilar bronchovascular markings mixed pathology possible as described above. Infection inflammatory fat changes here are some considerations. An element of concomitant pulmonary venous congestion is also suspect. Clinical correlation and follow-up recommended. Other findings as above.
--- NOTE | 2018-06-29 17:17 | ED PDOC ---
HPI: Eye Injury/Pain Time Seen by Provider: 06/29/18 15:14 Chief Complaint (Nursing): Eye Problem Chief Complaint (Provider): Eye Problem History Per: Patient History/Exam Limitations: no limitations Onset/Duration Of Symptoms: Days Current Symptoms Are (Timing): Still Present Wears Contact Lens?: Yes Associated Symptoms: Decreased Vision Additional Complaint(s): Shreyas Sepulveda is a 53 year old male with a history of HTN and seizures, who presents to the emergency department for the 2nd time today for an eval uation by ophthalmology for worsening vision of the right eye. Patient has had numerous visits to the ED for right eye pain in the past. Patient was here earlier today but left before being treated. Patient's antibiotics were also switched after patient informed provider he wears contacts. The contacts were thrown away. He returns today stating he has complete vision loss in right eye. The exam performed earlier today showed that the patient was unable to observe movement in the right eye. Patient was sent to Dr. Massey, prosthetic technician, and was diagnosed with endophthalmitis, corneal ulcer and hypopyon. Upon reevaluation, patient states he has no change since the morning. He states that he understands that he may lose vision in his right eye but states no one had told him that earlier. This contradicts the reports from the eye doctor as well as documentation from previous visits. Patient also understands that he will be transferred to another hospital with in patient ophthalmology. PMD: [facility] Past Medical History Reviewed: Historical Data, Nursing Documentation, Vital Signs Vital Signs: Last Vital Signs Temp 98.5 F 06/29/18 15:23 Pulse 75 06/29/18 15:23 Resp 18 06/29/18 15:23 BP 118/59 L 06/29/18 15:23 Pulse Ox 98 06/29/18 15:23 - Medical History PMH: Anemia, Anxiety, Back Problems (herniated disc), Deep Vein Thrombosis, Gastritis, Gall Bladder Disease (Cholelithiasis), HTN, Pancreatitis, Pneumonia, Seizures, Chronic Pain (left shoulder) Denies: CHF, Fractures, HIV, Hypercholesterolemia, Chronic Kidney Disease, Sexually Transmitted Disease - Surgical History Surgical History: Endoscopy - Family History Family History: States: Unknown Family Hx - Immunization History Hx Tetanus Toxoid Vaccination: Yes Hx Influenza Vaccination: Yes Hx Pneumococcal Vaccination: Yes - Home Medications Home Medications: Ambulatory Orders Medication Instructions Recorded RX: Lactulose [Enulose] 10 gm PO BID #30 ml 04/09/18 RX: Folic Acid 1 mg PO DAILY #30 tab 05/10/18 Acetaminophen [Tylenol 325mg tab] 650 mg PO Q4 PRN 06/01/18 Acetaminophen [Tylenol 325mg tab] 650 mg PO Q4 PRN 06/01/18 Acidoph/L.bulg/Bif.b/S.thermop 1 tab PO DAILY 06/01/18 [Bacid Caplet] LORazepam [Ativan] 1 mg PO Q6 PRN 06/01/18 Omeprazole 40 mg PO BID 06/01/18 RX: Levetiracetam [Keppra] 500 mg PO Q12 06/01/18 RX: Linezolid [Zyvox] 600 mg PO Q12 06/01/18 RX: Vitamin B Complex [Super B-50 1 cap PO DAILY 06/01/18 Complex] Tobramycin 0.3% [Tobramycin 5 Ml] 1 drop OP TID #1 bottle 06/24/18 Polymyxin/Trimethoprim Sulfate 1 drop RIGHTEYE Q3 #1 bottle 06/28/18 [Polytrim Ophth Soln] - Allergies Allergies/Adverse Reactions: Allergies Allergy/AdvReac Type Severity Reaction Status Date / Time aspirin AdvReac GI Bleed Verified 06/27/18 07:46 ibuprofen [From Motrin] AdvReac GI Bleed Verified 06/27/18 07:46 naproxen AdvReac GI bleed Verified 06/27/18 07:46 NSAIDS (Non-Steroidal AdvReac GI bleed Verified 06/27/18 07:46 Anti-Inflamma Review of Systems ROS Statement: Except As Marked, All Systems Reviewed And Found Negative Eyes: Positive for: Pain, Vision Change Physical Exam - Reviewed Nursing Documentation Reviewed: Yes Vital Signs Reviewed: Yes - Physical Exam Appears: Positive for: Non-toxic, No Acute Distress Head Exam: Positive for: ATRAUMATIC, NORMOCEPHALIC Skin: Positive for: Normal Color, Warm, Dry Eye Exam: Positive for: Other (Left eye: No signs of infection; PERRL, EOMI; objective pharanexinine with near and far vision with all visual mendoza intact; // Right Eye: EOMI, Periorbital cellulitis wiht tenderness and erythema; chemosis; hypopion to the 1/8 of inferior anterior chamber and corneal clouding; vision intact to light only; unable to visualize hand wave ) ENT: Positive for: Normal ENT Inspection Neck: Positive for: Normal, Painless ROM, Supple Cardiovascular/Chest: Positive for: Regular Rate, Rhythm. Negative for: Murmur Respiratory: Positive for: Normal Breath Sounds. Negative for: Respiratory Distress Gastrointestinal/Abdominal: Positive for: Normal Exam, Soft. Negative for: Tenderness Extremity: Positive for: Normal ROM. Negative for: Pedal Edema, Deformity Neurologic/Psych: Positive for: Alert, Oriented (x3) - ECG O2 Sat by Pulse Oximetry: 98 (RA) Pulse Ox Interpretation: Normal Medical Decision Making Medical Decision Making: Time: 1605 A/P: Work up for patient with hypopyon and endophthalmitis. --EKG --Ciprofloxacin 0.3% 2 drops OD Q2 --Gentamicin Sulfate 2 drops OD Q2 --Oxycodone 1 tab PO --Vancomycin IVPB --Blood culture Provider explained to patient that he needs inpatient care and may still have complete vision loss to right eye. Patient was started on Zosyn this morning but now is started on IV Vancomycin Q2H, Ciprofloxacin and Gentamicin. He has also been given Percocet for pain control. Provider contacted [facility] transfer center to put him in touch with Dr. Valera, ophthalmology resident working under Dr. Mendez attending, who have accepted the case. Spoke with Dr. Brown in the ED who has accepted ED to ED transfer. -- Scribe Attestation: Documented by Bradley Og, acting as a scribe for Haydee España MD. Provider Scribe Attestation: All medical record entries made by the Scribe were at my direction and personally dictated by me. I have reviewed the chart and agree that the record accurately reflects my personal performance of the history, physical exam, medical decision making, and the department course for this patient. I have also personally directed, reviewed, and agree with the discharge instructions and disposition. Disposition - Clinical Impression Clinical Impression: Hypopyon of right eye, Endophthalmitis, Endophthalmitis purulent - Disposition Disposition: Other Institution Disposition Time: 16:05 Condition: FAIR Forms: [facility] (Korean)
[2018-06-29] MEDS ORDERED: Ciprofloxacin 0.3% OPTH SOLN OD SCH (18:00)
[2018-06-29 18:07] VITALS: BP 119/64; PULSE 76; TEMP 98
--- NOTE | 2018-06-30 06:41 | CARD ---
APPROVED REPORT Date of service: 06/29/2018 EKG Measurement Heart [id number] <Conclusion> Normal sinus rhythm Cannot rule out Anterior infarct, age undetermined Prolonged QT Abnormal ECG
== END 2018-06-29 18:35 | disposition short-term general hospital (02) ==
LOC: H.ER 15:05
DX: H20 Iridocyclitis (principal); H44.001 Unspecified purulent endophthalmitis, right eye; Z88.6 Allergy status to analgesic agent

== ENCOUNTER 2018-07-06 17:17 | Emergency (ER) | payer MEDICAID ==
[2018-07-06 17:18] VITALS: BMI 23.0
--- NOTE | 2018-07-06 18:23 | ED PDOC ---
History of Present Illness History of Present Illness: 53 y/o male well known to ED staff and provider brought in by EMS for evaluation of a fall, onset prior to arrival. Patient reports of generalized weakness and feeling "warm". Patient states he has difficulty walking. Patient reports of being evaluated yesterday at a hospital in [place], [place] where he was diagnosed with a right eye infection and discharged home. Patient states he was instructed to apply eye drops to the affected eye every hour. Patient reports of drinking plenty of water today. At this time, patient is requesting food. Otherwise, patient offers no other complaints. PMD: no provider HPI: Influenza Time Seen by Provider: 07/06/18 18:17 Chief Complaint: Weakness/Neurological Deficit Chief Complaint (Provider): Weakness/Neurological Deficit History Per: Patient Exam Limitations: no limitations Onset/Duration Of Symptoms: Days Past Medical History Reviewed: Historical Data, Nursing Documentation, Vital Signs Vital Signs: Last Vital Signs Temp 98.1 F 07/06/18 17:27 Pulse 91 H 07/06/18 17:27 Resp 16 07/06/18 17:27 BP 148/66 07/06/18 17:27 Pulse Ox 99 07/06/18 17:27 - Medical History PMH: Anemia, Anxiety, Back Problems (herniated disc), Deep Vein Thrombosis, Gastritis, Gall Bladder Disease (Cholelithiasis), HTN, Pancreatitis, Pneumonia, Seizures, Chronic Pain (left shoulder) Denies: CHF, Fractures, HIV, Hypercholesterolemia, Chronic Kidney Disease, Sexually Transmitted Disease - Surgical History Surgical History: Endoscopy - Family History Family History: States: Unknown Family Hx - Immunization History Hx Tetanus Toxoid Vaccination: Yes Hx Influenza Vaccination: Yes Hx Pneumococcal Vaccination: Yes - Home Medications Home Medications: Ambulatory Orders Medication Instructions Recorded Lactulose [Enulose] 10 gm PO BID #30 ml 04/09/18 Folic Acid 1 mg PO DAILY #30 tab 05/10/18 Acetaminophen [Tylenol 325mg tab] 650 mg PO Q4 PRN 06/01/18 Acetaminophen [Tylenol 325mg tab] 650 mg PO Q4 PRN 06/01/18 Acidoph/L.bulg/Bif.b/S.thermop 1 tab PO DAILY 06/01/18 [Bacid Caplet] LORazepam [Ativan] 1 mg PO Q6 PRN 06/01/18 Levetiracetam [Keppra] 500 mg PO Q12 06/01/18 Linezolid [Zyvox] 600 mg PO Q12 06/01/18 Omeprazole 40 mg PO BID 06/01/18 Vitamin B Complex [Super B-50 1 cap PO DAILY 06/01/18 Complex] Tobramycin 0.3% [Tobramycin 5 Ml] 1 drop OP TID #1 bottle 06/24/18 Polymyxin/Trimethoprim Sulfate 1 drop RIGHTEYE Q3 #1 bottle 06/28/18 [Polytrim Ophth Soln] - Allergies Allergies/Adverse Reactions: Allergies Allergy/AdvReac Type Severity Reaction Status Date / Time aspirin AdvReac GI Bleed Verified 07/06/18 17:27 ibuprofen [From Motrin] AdvReac GI Bleed Verified 07/06/18 17:27 naproxen AdvReac GI bleed Verified 07/06/18 17:27 NSAIDS (Non-Steroidal AdvReac GI bleed Verified 07/06/18 17:27 Anti-Inflamma Review of Systems ROS Statement: Except As Marked, All Systems Reviewed And Found Negative Constitutional: Positive for: Fever, Weakness (to the bilateral legs) Physical Exam - Reviewed Nursing Documentation Reviewed: Yes Vital Signs Reviewed: Yes - Physical Exam Appears: Positive for: No Acute Distress. Negative for: Well (ill appearing) Head Exam: Positive for: ATRAUMATIC, NORMOCEPHALIC Skin: Positive for: Normal Color, Warm, Dry Eye Exam: Positive for: Other (Injected and glassy right eye) Neck: Positive for: Normal, Painless ROM Extremity: Negative for: Deformity Neurologic/Psych: Positive for: Alert, Oriented. Negative for: Motor/Sensory Deficits Medical Decision Making Medical Decision Making: Time: 1818 A/P: Workup for influenza -- EKG -- CMP -- CBC with Differentials -- Sodium Chloride IV 1000 mls/hr -- Toradol 30 mg IVP -- Tylenol 650 mg PO -- Influenza A B -- Urinalysis Pt is stable for discharge and is ambulating freely in the emergency room Scribe Attestation: Documented by Tutu Butler, acting as a scribe Claritza Mitchell PA-C. Provider Scribe Attestation: All medical record entries made by the Scribe were at my direction and personally dictated by me. I have reviewed the chart and agree that the record accurately reflects my personal performance of the history, physical exam, medical decision making, and the department course for this patient. I have also personally directed, reviewed, and agree with the discharge instructions and disposition. - Laboratory Results Result Diagrams: 07/06/18 18:30 07/06/18 18:30 - ECG O2 Sat by Pulse Oximetry: 99 (RA) Pulse Ox Interpretation: Normal Disposition - Clinical Impression Clinical Impression: Generalized muscle weakness - Patient ED Disposition Is Patient to be Admitted: No Counseled Patient/Family Regarding: Diagnosis, Need For Followup - Disposition Disposition: Routine/Home Disposition Time: 22:03 Condition: STABLE Instructions: Weakness (ED) Forms: [facility] (Slovak)
[2018-07-06] MEDS ORDERED: Sodium Chloride 0.9% 1,000 ML IV SCH (18:30)
[2018-07-06 19:08] LABS: BASO % 1.2 % (0.0-2.0); EOS # 0.2 K/uL (0.0-0.7); EOS % 6.1 % (0.0-4.0); HEMOGLOBIN 8.2 g/dL (12.0-18.0); LYMPH # 0.5 K/uL (1.0-4.3); LYMPH % 17.5 % (20.0-40.0); MEAN CELL VOLUME 86.7 fl (80.0-94.0); MEAN CORPUSCULAR HEMOGLOBIN 28.5 pg (27.0-31.0); MEAN CORPUSCULAR HGB CONC 32.8 g/dL (33.0-37.0); MEAN PLATELET VOLUME 9.1 fl (7.2-11.7); MONO # 0.5 K/uL (0.0-0.8); MONO % 16.6 % (0.0-10.0); NEUT # 1.8 K/uL (1.8-7.0); NEUT % 58.6 % (50.0-75.0); NRBC % 0.1 % (0.0-0.0); RBC 2.89 Mil/uL (4.40-5.90); RED CELL DISTRIBUTION WIDTH 20.3 % (11.5-14.5)
[2018-07-06 19:18] LABS: ALB/GLOB RATIO 0.7 (1.0-2.1); ALBUMIN 2.8 g/dL (3.5-5.0); ALT/SGPT 49 U/L (21-72); AST/SGOT 81 U/L (17-59); BLOOD UREA NITROGEN 32 mg/dl (9-20); CALCIUM 8.6 mg/dL (8.4-10.2); GFR NON-AFRICAN AMERICAN > 60
[2018-07-06 20:48] LABS: INR 1.5; PROTHROMBIN TIME 17.6 Seconds (9.8-13.1)
[2018-07-06 20:51] LABS: PARTIAL THROMBOPLASTIN TIME 36.8 Seconds (25.6-37.1)
[2018-07-06 21:25] LABS: VENOUS BLOOD GAS BASE EXCESS -1.6 mmol/L (0.0-2.0); VENOUS BLOOD GAS PCO2 31 mmHg (40-60); VENOUS BLOOD GAS PO2 76 mm/Hg (30-55); VENOUS BLOOD PH 7.45 (7.32-7.43)
[2018-07-07 00:12] VITALS: O2SAT 98
[2018-07-07 06:04] VITALS: BP 125/79; PULSE 84; RESP 18; TEMP 98.1
--- NOTE | 2018-07-07 07:58 | CARD ---
APPROVED REPORT Date of service: 07/06/2018 EKG Measurement Heart [id number] <Conclusion> Normal sinus rhythm Normal ECG
== END 2018-07-07 06:02 | disposition home or self-care (01) ==
LOC: H.ER 17:17
DX: M62.81 Muscle weakness (generalized) (principal); I10 Essential (primary) hypertension; Z86.718 Personal history of other venous thrombosis and embolism; F17.210 Nicotine dependence, cigarettes, uncomplicated
CPT/HCPCS: 80053; 82803; 83605; 85025; 85610; 85730; 87804; 93005; 96361; 96374; 99284; J1885; J7030

== ENCOUNTER 2018-07-12 12:00 | Emergency (ER) | payer MEDICAID ==
[2018-07-12 12:01] VITALS: BMI 23.0
[2018-07-12 13:43] VITALS: BP 120/79; PULSE 86; RESP 18; TEMP 98; O2SAT 99
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
== END 2018-07-12 13:42 | disposition home or self-care (01) ==
LOC: H.ER 12:00
DX: Z76.5 Malingerer [conscious simulation] (principal); I10 Essential (primary) hypertension; G89.29 Other chronic pain; Z86.718 Personal history of other venous thrombosis and embolism

== ENCOUNTER 2018-07-14 09:18 | Emergency (ER) | payer MEDICAID ==
[2018-07-14 09:25] VITALS: BMI 23.4
[2018-07-14 09:28] VITALS: BP 150/79; RESP 18; TEMP 97.8
[2018-07-14 09:46] VITALS: O2SAT 98
--- NOTE | 2018-07-14 10:29 | ED PDOC ---
HPI: General Adult Time Seen by Provider: 07/14/18 09:33 Chief Complaint (Nursing): Eye Problem Chief Complaint (Provider): vision loss to right eye History Per: Patient History/Exam Limitations: no limitations Onset/Duration Of Symptoms: Days Current Symptoms Are (Timing): Still Present Additional Complaint(s): Shreyas Sepulveda is a 53 year old male, with a past medical history of HTN, who presents to the emergency department for continued vision loss to the right eye. Patient states he went to the pharmacy for refill but has not been called in by supervising deputy at [facility]. Patient tried to call him but couldn't get hold of anyone and struggled to get a follow up appointment, otherwise he reports compliance with medications and visits. No further medical complaints. PMD: None provided. Past Medical History Reviewed: Historical Data, Nursing Documentation, Vital Signs Vital Signs: Last Vital Signs Temp 97.8 F 07/14/18 09:27 Pulse 89 07/14/18 09:27 Resp 18 07/14/18 09:27 BP 150/79 07/14/18 09:27 Pulse Ox 98 07/14/18 09:43 - Medical History PMH: Anemia, Anxiety, Back Problems (herniated disc), Deep Vein Thrombosis, Gastritis, Gall Bladder Disease (Cholelithiasis), HTN, Pancreatitis, Pneumonia, Seizures, Chronic Pain (left shoulder) Denies: CHF, Fractures, HIV, Hypercholesterolemia, Chronic Kidney Disease, Sexually Transmitted Disease - Surgical History Surgical History: Endoscopy - Family History Family History: States: Unknown Family Hx - Social History Current smoker - smoking cessation education provided: Yes (Current some days smoker) Alcohol: > 2 Drinks/Day Drugs: Denies - Immunization History Hx Tetanus Toxoid Vaccination: Yes Hx Influenza Vaccination: Yes Hx Pneumococcal Vaccination: Yes - Home Medications Home Medications: Ambulatory Orders Medication Instructions Recorded RX: Lactulose [Enulose] 10 gm PO BID #30 ml 04/09/18 RX: Folic Acid 1 mg PO DAILY #30 tab 05/10/18 Acetaminophen [Tylenol 325mg tab] 650 mg PO Q4 PRN 06/01/18 Acetaminophen [Tylenol 325mg tab] 650 mg PO Q4 PRN 06/01/18 Acidoph/L.bulg/Bif.b/S.thermop 1 tab PO DAILY 06/01/18 [Bacid Caplet] LORazepam [Ativan] 1 mg PO Q6 PRN 06/01/18 Omeprazole 40 mg PO BID 06/01/18 RX: Levetiracetam [Keppra] 500 mg PO Q12 06/01/18 RX: Linezolid [Zyvox] 600 mg PO Q12 06/01/18 RX: Vitamin B Complex [Super B-50 1 cap PO DAILY 06/01/18 Complex] Tobramycin 0.3% [Tobramycin 5 Ml] 1 drop OP TID #1 bottle 06/24/18 Polymyxin/Trimethoprim Sulfate 1 drop RIGHTEYE Q3 #1 bottle 06/28/18 [Polytrim Ophth Soln] - Allergies Allergies/Adverse Reactions: Allergies Allergy/AdvReac Type Severity Reaction Status Date / Time aspirin AdvReac GI Bleed Verified 07/14/18 09:43 ibuprofen [From Motrin] AdvReac GI Bleed Verified 07/14/18 09:43 naproxen AdvReac GI bleed Verified 07/14/18 09:43 NSAIDS (Non-Steroidal AdvReac GI bleed Verified 07/14/18 09:43 Anti-Inflamma Review of Systems ROS Statement: Except As Marked, All Systems Reviewed And Found Negative Eyes: Positive for: Vision Change (right eye vision loss) Physical Exam - Reviewed Nursing Documentation Reviewed: Yes Vital Signs Reviewed: Yes - Physical Exam Appears: Positive for: Well (improved general health compared to previous visits. No signs of alcohol withdrawal), No Acute Distress Head Exam: Positive for: ATRAUMATIC, NORMAL INSPECTION, NORMOCEPHALIC Skin: Positive for: Normal Color, Warm, Dry Eye Exam: Positive for: Normal appearance, EOMI, PERRL, Other (Vision of left eye intact to identification of fingers in all vision mendoza. Right eye vision not intact to hand wave but intact to light.) Neck: Positive for: Normal, Painless ROM Cardiovascular/Chest: Positive for: Regular Rate, Rhythm. Negative for: Murmur Respiratory: Positive for: Normal Breath Sounds. Negative for: Respiratory Distress Extremity: Positive for: Normal ROM (upper and lower extremities). Negative for: Deformity, Swelling Neurologic/Psych: Positive for: Alert, Oriented - ECG O2 Sat by Pulse Oximetry: 98 (RA) Pulse Ox Interpretation: Normal Medical Decision Making Medical Decision Making: Time: 09:33 Initial Impression: Patient here for eye medication, will attempt to contact [facility] to determine patient's current status for prescription and follow up visits. Will discharge once information is obtain. Initial Plan: --Reevaluation 11:35 Tracked down several pharmacies where he can get his eye prescriptions. ED pharmacist, Maria Ines, gave information. Spoke with Dr. Massey who recommends patient to come immediately. While arranging transport for patient to Dr. Massey's office patient walked out of the ED with his belongings. Both nurse, MD and pharmacist discussed the importance of getting medications filled and close follow up for supervising deputy as condition will only worsen with possible infection spread to the entire eye and other parts of the head. Chart reviews show multiple discussions with patient regarding the risk of not following medi vanessa treatment an adherence of antibiotic schedule. Scribe Attestation: Documented by Giovany Puri, acting as a scribe for Haydee España MD Provider Scribe Attestation: All medical record entries made by the Scribe were at my direction and personally dictated by me. I have reviewed the chart and agree that the record accurately reflects my personal performance of the history, physical exam, medical decision making, and the department course for this patient. I have also personally directed, reviewed, and agree with the discharge instructions and disposition. Disposition - Clinical Impression Clinical Impression: Eye injury, Conjunctivitis - Disposition Disposition Time: 11:35 Condition: STABLE Forms: [employer] ([place])
[2018-07-14 19:59] VITALS: PULSE 80
== END 2018-07-14 12:10 | disposition left against medical advice (07) ==
LOC: H.ER 09:18
DX: H10.9 Unspecified conjunctivitis (principal); H54.61 Unqualified visual loss, right eye, normal vision left eye

== ENCOUNTER 2018-07-16 08:23 | Emergency (ER) | payer MEDICAID ==
[2018-07-16 08:24] VITALS: BMI 23.4
--- NOTE | 2018-07-16 09:01 | ED PDOC ---
HPI: General Adult Time Seen by Provider: 07/16/18 08:42 Chief Complaint (Nursing): Back Pain Chief Complaint (Provider): Bilateral Leg pain History Per: Patient History/Exam Limitations: no limitations Onset/Duration Of Symptoms: Hrs Current Symptoms Are (Timing): Still Present Additional Complaint(s): 53 year old male with a past medical history of hypertension and seizures who is presenting to the ED for evaluation of leg pain s/[place] fall [place] train station just [place] to arrival. Patient states that he feels weak in the legs and is experiencing increasing pain. He denies any seizure like activity and offers no other medical complaints at this time. PMD: none provided Past Medical History Reviewed: Historical Data, Nursing Documentation, Vital Signs Vital Signs: Last Vital Signs Temp 97.1 F L 07/16/18 08:28 Pulse 75 07/16/18 08:28 Resp BP 145/77 07/16/18 08:28 Pulse Ox 97 07/16/18 08:28 - Medical History PMH: Anemia, Anxiety, Back Problems (herniated disc), Deep Vein Thrombosis, Gastritis, Gall Bladder Disease (Cholelithiasis), HTN, Pancreatitis, Pneumonia, Seizures, Chronic Pain (left shoulder) Denies: CHF, Fractures, HIV, Hypercholesterolemia, Chronic Kidney Disease, Sexually Transmitted Disease - Surgical History Surgical History: Endoscopy - Family History Family History: States: Unknown Family Hx - Social History Current smoker - smoking cessation education provided: Yes Alcohol: Social Drugs: Denies - Immunization History Hx Tetanus Toxoid Vaccination: Yes Hx Influenza Vaccination: Yes Hx Pneumococcal Vaccination: Yes - Home Medications Home Medications: Ambulatory Orders Medication Instructions Recorded Lactulose [Enulose] 10 gm PO BID #30 ml 04/09/18 Folic Acid 1 mg PO DAILY #30 tab 05/10/18 Acetaminophen [Tylenol 325mg tab] 650 mg PO Q4 PRN 06/01/18 Acetaminophen [Tylenol 325mg tab] 650 mg PO Q4 PRN 06/01/18 Acidoph/L.bulg/Bif.b/S.thermop 1 tab PO DAILY 06/01/18 [Bacid Caplet] LORazepam [Ativan] 1 mg PO Q6 PRN 06/01/18 Levetiracetam [Keppra] 500 mg PO Q12 06/01/18 Linezolid [Zyvox] 600 mg PO Q12 06/01/18 Omeprazole 40 mg PO BID 06/01/18 Vitamin B Complex [Super B-50 1 cap PO DAILY 06/01/18 Complex] Tobramycin 0.3% [Tobramycin 5 Ml] 1 drop OP TID #1 bottle 06/24/18 Polymyxin/Trimethoprim Sulfate 1 drop RIGHTEYE Q3 #1 bottle 06/28/18 [Polytrim Ophth Soln] - Allergies Allergies/Adverse Reactions: Allergies Allergy/AdvReac Type Severity Reaction Status Date / Time aspirin AdvReac GI Bleed Verified 07/14/18 09:43 ibuprofen [From Motrin] AdvReac GI Bleed Verified 07/14/18 09:43 naproxen AdvReac GI bleed Verified 07/14/18 09:43 NSAIDS (Non-Steroidal AdvReac GI bleed Verified 07/14/18 09:43 Anti-Inflamma Review of Systems ROS Statement: Except As Marked, All Systems Reviewed And Found Negative Musculoskeletal: Positive for: Leg Pain Physical Exam - Reviewed Nursing Documentation Reviewed: Yes Vital Signs Reviewed: Yes - Physical Exam Appears: Positive for: Non-toxic, No Acute Distress Head Exam: Positive for: ATRAUMATIC, NORMAL INSPECTION, NORMOCEPHALIC Skin: Positive for: Normal Color, Warm, DRY Eye Exam: Positive for: Normal appearance Neck: Positive for: Normal Cardiovascular/Chest: Positive for: Regular Rate, Rhythm. Negative for: Murmur Respiratory: Negative for: Respiratory Distress Extremity: Positive for: Normal ROM. Negative for: Deformity, Swelling Neurologic/Psych: Positive for: Alert, Oriented. Negative for: Motor/Sensory Deficits - ECG O2 Sat by Pulse Oximetry: 97 (RA) Pulse Ox Interpretation: Normal Medical Decision Making Medical Decision Making: Time: 9:00 Patient is resting comfortably in the ED and walking around. Scribe Attestation: Documented by Roxana Wang, acting as a scribe for Kary Huizar MD. Provider Scribe Attestation: All medical record entries made by the Scribe were at my direction and person ally dictated by me. I have reviewed the chart and agree that the record accurately reflects my personal performance of the history, physical exam, medical decision making, and the department course for this patient. I have also personally directed, reviewed, and agree with the discharge instructions and disposition. Disposition - Clinical Impression Clinical Impression: Leg weakness - Patient ED Disposition Is Patient to be Admitted: No Doctor Will See Patient In The: Office Counseled Patient/Family Regarding: Diagnosis, Need For Followup - Disposition Disposition: Routine/Home Disposition Time: 11:15 Condition: STABLE Instructions: Generalized Weakness (DC) Forms: [facility] (Latvian) - POA Present On Arrival: Falls Or Trauma
[2018-07-16 11:49] VITALS: BP 141/72; PULSE 71; RESP 16; TEMP 98.1; O2SAT 98
== END 2018-07-16 11:49 | disposition home or self-care (01) ==
LOC: H.ER 08:23
DX: M62.81 Muscle weakness (generalized) (principal); G89.29 Other chronic pain

== ENCOUNTER 2018-07-17 08:16 | Emergency (ER) | payer MEDICAID ==
[2018-07-17 08:17] VITALS: BMI 23.4
[2018-07-17 08:22] VITALS: RESP 18
--- NOTE | 2018-07-17 09:16 | ED PDOC ---
HPI: General Adult Time Seen by Provider: 07/17/18 09:01 Chief Complaint (Nursing): Eye Problem Chief Complaint (Provider): Seizure History Per: Patient History/Exam Limitations: no limitations Onset/Duration Of Symptoms: Hrs Current Symptoms Are (Timing): Still Present Additional Complaint(s): 53 year old male presents to the ED for an evaluation of unwitnessed seizure. Patient called EMS for further evaluation. Currently, patient is sleeping and easily aroused. He denies any physical complaints in the ED. PMD: no family provider Past Medical History Reviewed: Historical Data, Nursing Documentation, Vital Signs Vital Signs: Last Vital Signs Temp 98.4 F 07/17/18 08:21 Pulse 80 07/17/18 08:21 Resp 18 07/17/18 08:21 BP 146/86 07/17/18 08:21 Pulse Ox 97 07/17/18 08:21 - Medical History PMH: Anemia, Anxiety, Back Problems (herniated disc), Deep Vein Thrombosis, Gastritis, Gall Bladder Disease (Cholelithiasis), HTN, Pancreatitis, Pneumonia, Seizures, Chronic Pain (left shoulder) Denies: CHF, Fractures, HIV, Hypercholesterolemia, Chronic Kidney Disease, Sexually Transmitted Disease - Surgical History Surgical History: Endoscopy - Family History Family History: States: Unknown Family Hx - Social History Current smoker - smoking cessation education provided: Yes Alcohol: Social Drugs: Denies - Immunization History Hx Tetanus Toxoid Vaccination: Yes Hx Influenza Vaccination: Yes Hx Pneumococcal Vaccination: Yes - Home Medications Home Medications: Ambulatory Orders Medication Instructions Recorded Lactulose [Enulose] 10 gm PO BID #30 ml 04/09/18 Folic Acid 1 mg PO DAILY #30 tab 05/10/18 Acetaminophen [Tylenol 325mg tab] 650 mg PO Q4 PRN 06/01/18 Acetaminophen [Tylenol 325mg tab] 650 mg PO Q4 PRN 06/01/18 Acidoph/L.bulg/Bif.b/S.thermop 1 tab PO DAILY 06/01/18 [Bacid Caplet] LORazepam [Ativan] 1 mg PO Q6 PRN 06/01/18 Levetiracetam [Keppra] 500 mg PO Q12 06/01/18 Linezolid [Zyvox] 600 mg PO Q12 06/01/18 Omeprazole 40 mg PO BID 06/01/18 Vitamin B Complex [Super B-50 1 cap PO DAILY 06/01/18 Complex] Tobramycin 0.3% [Tobramycin 5 Ml] 1 drop OP TID #1 bottle 06/24/18 Polymyxin/Trimethoprim Sulfate 1 drop RIGHTEYE Q3 #1 bottle 06/28/18 [Polytrim Ophth Soln] Gentamicin Sulfate [Garamycin 0.3% 1 drop OD Q3H 7 Days #1 bottle 07/17/18 Opth] - Allergies Allergies/Adverse Reactions: Allergies Allergy/AdvReac Type Severity Reaction Status Date / Time aspirin AdvReac GI Bleed Verified 07/17/18 08:30 ibuprofen [From Motrin] AdvReac GI Bleed Verified 07/17/18 08:30 naproxen AdvReac GI bleed Verified 07/17/18 08:30 NSAIDS (Non-Steroidal AdvReac GI bleed Verified 07/17/18 08:30 Anti-Inflamma Review of Systems ROS Statement: Except As Marked, All Systems Reviewed And Found Negative Constitutional: Negative for: Fever, Chills Respiratory: Negative for: Cough, Shortness of Breath Gastrointestinal: Negative for: Nausea, Vomiting, Abdominal Pain, Diarrhea Neurological: Positive for: Seizures. Negative for: Weakness, Numbness Physical Exam - Reviewed Nursing Documentation Reviewed: Yes Vital Signs Reviewed: Yes - Physical Exam Appears: Positive for: Well, Non-toxic, No Acute Distress Head Exam: Positive for: ATRAUMATIC, NORMAL INSPECTION, NORMOCEPHALIC Skin: Positive for: Normal Color, Warm, Dry. Negative for: Rash Eye Exam: Positive for: EOMI, Normal appearance, PERRL ENT: Positive for: Normal ENT Inspection Neck: Positive for: Normal, Painless ROM, Supple. Negative for: Decreased ROM Cardiovascular/Chest: Positive for: Regular Rate, Rhythm Respiratory: Positive for: Normal Breath Sounds. Negative for: Decreased Breath Sounds, Wheezing, Respiratory Distress Gastrointestinal/Abdominal: Positive for: Normal Exam, Soft. Negative for: Tenderness, Guarding, Rebound Back: Positive for: Normal Inspection Extremity: Positive for: Normal ROM. Negative for: Tenderness, Pedal Edema, Deformity Neurologic/Psych: Positive for: Alert, Oriented (x3) - ECG O2 Sat by Pulse Oximetry: 97 (RA) Pulse Ox Interpretation: Normal Medical Decision Making Medical Decision Making: Time: 900 Scribe Attestation: Documented by Jean Claude Whitmore, acting as a scribe for Kary Huizar MD. Provider Scribe Attestation: All medical record entries made by the Scribe were at my direction and personally dictated by me. I have reviewed the chart and agree that the record accurately reflects my personal performance of the history, physical exam, medical decision making, and the department course for this patient. I have also personally directed, reviewed, and agree with the discharge instructions and disposition. Disposition - Clinical Impression Clinical Impression: Conjunctivitis - Patient ED Disposition Is Patient to be Admitted: No Doctor Will See Patient In The: Office Counseled Patient/Family Regarding: Diagnosis, Need For Followup, Rx Given - Disposition Disposition: Routine/Home Disposition Time: 12:00 Condition: STABLE Prescriptions: Gentamicin Sulfate [Garamycin 0.3% Opth] 1 drop OD Q3H 7 Days #1 bottle Instructions: Conjunctivitis ([place]) Forms: [employer] (Croatian) - POA Present On Arrival: None
[2018-07-17 13:07] VITALS: BP 140/72; PULSE 76; TEMP 98; O2SAT 99
== END 2018-07-17 13:15 | disposition home or self-care (01) ==
LOC: H.ER 08:16
DX: H10.9 Unspecified conjunctivitis (principal)

== ENCOUNTER 2018-07-18 07:43 | Emergency (ER) | payer MEDICAID ==
[2018-07-18 07:44] VITALS: BMI 23.4
--- NOTE | 2018-07-18 08:06 | ED PDOC ---
Lower Extremity Pain/Injury Time Seen by Provider: 07/18/18 07:58 Chief Complaint (Provider): Chronic Pain History Per: Patient History/Exam Limitations: no limitations Current Symptoms Are (Timing): Still Present Additional Complaint(s): Shreyas Sepulveda is a 53 year old male well known to the ED for frequent visits. He presents today for evaluation of bilateral leg pain. Otherwise, patient has no other complaints. PMD: no provider Past Medical History Reviewed: Historical Data, Nursing Documentation, Vital Signs Vital Signs: Last Vital Signs Temp 98.4 F 07/18/18 07:47 Pulse 74 07/18/18 07:47 Resp 17 07/18/18 07:47 BP 149/79 07/18/18 07:47 Pulse Ox 99 07/18/18 07:47 - Medical History PMH: Anemia, Anxiety, Back Problems (herniated disc), Deep Vein Thrombosis, Gastritis, Gall Bladder Disease (Cholelithiasis), HTN, Pancreatitis, Pneumonia, Seizures, Chronic Pain (left shoulder) Denies: CHF, Fractures, HIV, Hypercholesterolemia, Chronic Kidney Disease, Sexually Transmitted Disease - Surgical History Surgical History: Endoscopy - Family History Family History: States: Unknown Family Hx - Immunization History Hx Tetanus Toxoid Vaccination: Yes Hx Influenza Vaccination: Yes Hx Pneumococcal Vaccination: Yes - Home Medications Home Medications: Ambulatory Orders Medication Instructions Recorded Lactulose [Enulose] 10 gm PO BID #30 ml 04/09/18 Folic Acid 1 mg PO DAILY #30 tab 05/10/18 Acetaminophen [Tylenol 325mg tab] 650 mg PO Q4 PRN 06/01/18 Acetaminophen [Tylenol 325mg tab] 650 mg PO Q4 PRN 06/01/18 Acidoph/L.bulg/Bif.b/S.thermop 1 tab PO DAILY 06/01/18 [Bacid Caplet] LORazepam [Ativan] 1 mg PO Q6 PRN 06/01/18 Levetiracetam [Keppra] 500 mg PO Q12 06/01/18 Linezolid [Zyvox] 600 mg PO Q12 06/01/18 Omeprazole 40 mg PO BID 06/01/18 Vitamin B Complex [Super B-50 1 cap PO DAILY 06/01/18 Complex] Tobramycin 0.3% [Tobramycin 5 Ml] 1 drop OP TID #1 bottle 06/24/18 Polymyxin/Trimethoprim Sulfate 1 drop RIGHTEYE Q3 #1 bottle 06/28/18 [Polytrim Ophth Soln] Gentamicin Sulfate [Garamycin 0.3% 1 drop OD Q3H 7 Days #1 bottle 07/17/18 Opt] - Allergies Allergies/Adverse Reactions: Allergies Allergy/AdvReac Type Severity Reaction Status Date / Time aspirin AdvReac GI Bleed Verified 07/17/18 08:30 ibuprofen [From Motrin] AdvReac GI Bleed Verified 07/17/18 08:30 naproxen AdvReac GI bleed Verified 07/17/18 08:30 NSAIDS (Non-Steroidal AdvReac GI bleed Verified 07/18/18 08:01 Anti-Inflamma Review of Systems ROS Statement: Except As Marked, All Systems Reviewed And Found Negative Musculoskeletal: Positive for: Leg Pain (bilateral leg pain) Physical Exam - Reviewed Nursing Documentation Reviewed: Yes Vital Signs Reviewed: Yes - Physical Exam Appears: Positive for: Non-toxic, No Acute Distress Head Exam: Positive for: ATRAUMATIC, NORMOCEPHALIC Skin: Positive for: Normal Color Eye Exam: Positive for: Other (right eye: haziness to inferior portion of pupil) Cardiovascular/Chest: Positive for: Regular Rate, Rhythm. Negative for: Murmur Respiratory: Positive for: Normal Breath Sounds. Negative for: Respiratory Distress Extremity: Positive for: Swelling (mild swelling to lower extremities bilaterally ). Negative for: Calf Tenderness, Other (eythema) Neurologic/Psych: Positive for: Alert, Oriented - ECG O2 Sat by Pulse Oximetry: 99 (RA) Pulse Ox Interpretation: Normal Medical Decision Making Medical Decision Makin Impression: Chronic Pain Plan: --Known for bed seeking behavior. Will discharge patient. - Scribe Attestation: Documented by Bradley Og, acting as a scribe for Jonathan Sousa MD. Provider Scribe Attestation: All medical record entries made by the Marleneibgalileo were at my direction and personally dictated by me. I have reviewed the chart and agree that the record accurately reflects my personal performance of the history, physical exam, medical decision making, and the department course for this patient. I have also personally directed, reviewed, and agree with the discharge instructions and disposition. Disposition - Clinical Impression Clinical Impression: Leg edema - Patient ED Disposition Is Patient to be Admitted: No Counseled Patient/Family Regarding: Diagnosis, Need For Followup - Disposition Referrals: [facility] [Outside] Disposition: Routine/Home Disposition Time: 11:24 Condition: FAIR Instructions: Swelling
[2018-07-18 11:45] VITALS: BP 148/80; PULSE 76; RESP 16; TEMP 98.6; O2SAT 96
== END 2018-07-18 11:44 | disposition home or self-care (01) ==
LOC: H.ER 07:43
DX: R60.0 Localized edema (principal); G89.29 Other chronic pain; I10 Essential (primary) hypertension; Z86.718 Personal history of other venous thrombosis and embolism

== ENCOUNTER 2018-07-24 08:28 | Emergency (ER) | payer MEDICAID ==
[2018-07-24 08:29] VITALS: BMI 23.4
[2018-07-24 08:50] VITALS: O2SAT 100
--- NOTE | 2018-07-24 09:57 | ED PDOC ---
HPI: Eye Injury/Pain Time Seen by Provider: 07/24/18 09:07 Chief Complaint (Nursing): Eye Problem Chief Complaint (Provider): Eye Problem History Per: Patient History/Exam Limitations: no limitations Onset/Duration Of Symptoms: Days Current Symptoms Are (Timing): Still Present Additional Complaint(s): Patient is a 53 y/o male with a PMHx of HTN, anemia, anxiety, back problems, pancreatitis, PNA, deep vein thrombosis, seizures, gastritis, gall bladder disease, and chronic left shoulder pain who presents to the ED for evaluation of right eye blindness, since 07/05/2018. Patient states he was discharged from [facility] in [place] on 07/05/18 where he was given two prescriptions (Fortified Vancomycin and Fortified Tobramycin) that he has yet to fill. PCP: [facility] Past Medical History Reviewed: Historical Data, Nursing Documentation, Vital Signs Vital Signs: Last Vital Signs Temp 97.9 F 07/24/18 08:49 Pulse 82 07/24/18 08:49 Resp 20 07/24/18 08:49 BP 149/83 07/24/18 08:49 Pulse Ox 100 07/24/18 08:49 - Medical History PMH: Anemia, Anxiety, Back Problems (herniated disc), Deep Vein Thrombosis, Gastritis, Gall Bladder Disease (Cholelithiasis), HTN, Pancreatitis, Pneumonia, Seizures, Chronic Pain (left shoulder) Denies: CHF, Fractures, HIV, Hypercholesterolemia, Chronic Kidney Disease, Sexually Transmitted Disease - Surgical History Surgical History: Endoscopy - Family History Family History: States: Unknown Family Hx - Immunization History Hx Tetanus Toxoid Vaccination: Yes Hx Influenza Vaccination: Yes Hx Pneumococcal Vaccination: Yes - Home Medications Home Medications: Ambulatory Orders Medication Instructions Recorded Lactulose [Enulose] 10 gm PO BID #30 ml 04/09/18 Folic Acid 1 mg PO DAILY #30 tab 05/10/18 Acetaminophen [Tylenol 325mg tab] 650 mg PO Q4 PRN 06/01/18 Acetaminophen [Tylenol 325mg tab] 650 mg PO Q4 PRN 06/01/18 Acidoph/L.bulg/Bif.b/S.thermop 1 tab PO DAILY 06/01/18 [Bacid Caplet] LORazepam [Ativan] 1 mg PO Q6 PRN 06/01/18 Levetiracetam [Keppra] 500 mg PO Q12 06/01/18 Linezolid [Zyvox] 600 mg PO Q12 06/01/18 Omeprazole 40 mg PO BID 06/01/18 Vitamin B Complex [Super B-50 1 cap PO DAILY 06/01/18 Complex] Tobramycin 0.3% [Tobramycin 5 Ml] 1 drop OP TID #1 bottle 06/24/18 Polymyxin/Trimethoprim Sulfate 1 drop RIGHTEYE Q3 #1 bottle 06/28/18 [Polytrim Ophth Soln] Gentamicin Sulfate [Garamycin 0.3% 1 drop OD Q3H 7 Days #1 bottle 07/17/18 Opth] - Allergies Allergies/Adverse Reactions: Allergies Allergy/AdvReac Type Severity Reaction Status Date / Time aspirin AdvReac GI Bleed Verified 07/17/18 08:30 ibuprofen [From Motrin] AdvReac GI Bleed Verified 07/17/18 08:30 naproxen AdvReac GI bleed Verified 07/17/18 08:30 NSAIDS (Non-Steroidal AdvReac GI bleed Verified 07/18/18 08:01 Anti-Inflamma Review of Systems ROS Statement: Except As Marked, All Systems Reviewed And Found Negative Eyes: Negative for: Vision Change Physical Exam - Reviewed Nursing Documentation Reviewed: Yes Vital Signs Reviewed: Yes - Physical Exam Appears: Positive for: Non-toxic, No Acute Distress Head Exam: Positive for: ATRAUMATIC, NORMAL INSPECTION, NORMOCEPHALIC Skin: Positive for: Normal Color, Warm, Dry Eye Exam: Positive for: Normal appearance, EOMI, PERRL, Other (visible abrasion to right cornea) ENT: Positive for: Normal ENT Inspection Neck: Positive for: Normal, Painless ROM, Supple Cardiovascular/Chest: Positive for: Regular Rate, Rhythm. Negative for: Murmur Respiratory: Positive for: Normal Breath Sounds. Negative for: Respiratory Distress Gastrointestinal/Abdominal: Positive for: Normal Exam, Soft. Negative for: Tenderness Back: Positive for: Normal Inspection. Negative for: L CVA Tenderness, R CVA Tenderness, Vertebral Tenderness Extremity: Positive for: Normal ROM. Negative for: Pedal Edema, Deformity Neurologic/Psych: Positive for: Alert, Oriented. Negative for: Motor/Sensory Deficits - ECG O2 Sat by Pulse Oximetry: 100 (RA) Pulse Ox Interpretation: Normal Medical Decision Making Medical Decision Making: Impression: Acute Corneal Ulcer - Ophtho consult - Tobramycin ophthalmic solution 10:[address] Massey, agrees with Tobramycin drops, will see patient in office tomorrow @ 9 AM. - Scribe Attestation: Documented by Manjinder Edwards, acting as a scribe for Luisana Escalante MD. Provider Scribe Attestation: All medical record entries made by the Scribe were at my direction and personally dictated by me. I have reviewed the chart and agree that the record accurately reflects my personal performance of the history, physical exam, medical decision making, and the department course for this patient. I have also personally directed, reviewed, and agree with the discharge instructions and disposition. Disposition - Clinical Impression Clinical Impression: Corneal ulcer - Disposition Referrals: Christian Massey MD [Staff Provider] - Condition: STABLE Additional Instructions: FOLLOW-UP WITH DR. MASSEY TOMORROW @ 9 AM WITHOUT FAIL! Instructions: Corneal Ulcer Forms: Circular (Guatemalan)
[2018-07-24] MEDS ORDERED: Tobramycin 0.3% OPHT SOLN OD SCH (10:15)
[2018-07-24 10:28] VITALS: BP 152/72; PULSE 67; RESP 18; TEMP 98.1
== END 2018-07-24 10:25 | disposition home or self-care (01) ==
LOC: H.ER 08:28
DX: H16.009 Unspecified corneal ulcer, unspecified eye (principal); G89.29 Other chronic pain; H54.61 Unqualified visual loss, right eye, normal vision left eye; I10 Essential (primary) hypertension; R56.9 Unspecified convulsions; Z86.718 Personal history of other venous thrombosis and embolism; Z88.6 Allergy status to analgesic agent

== ENCOUNTER 2018-07-27 14:16 | Inpatient (IN) | payer MEDICAID ==
[2018-07-27 14:16] VITALS: BMI 23.4
[2018-07-27] MEDS ORDERED: Sodium Chloride 0.9% 1,000 ML IV STA (14:54)
--- NOTE | 2018-07-27 15:10 | ED PDOC ---
HPI: Psych/Substance Abuse Time Seen by Provider: 07/27/18 14:38 Chief Complaint (Nursing): Alcohol Ingestion Chief Complaint (Provider): Alcohol Ingestion History Per: Patient History/Exam Limitations: no limitations Onset/Duration Of Symptoms: Days (x 1) Current Symptoms Are (Timing): Still Present Modifying Factor(s): Alcohol Additional Complaint(s): 53 year old male with a history of alcohol abuse, seizures, hypertension, anemia and gastritis presents to the ED for evaluation of alcohol intoxication, generalized weakness and fatigue. He also complains of blood in his stool and neck pain. Patient reports he had a seizure today which is not unusual. He is well known to this ED for daily visits for evaluation of seizures. Patient state s that he drank alcohol this morning and is feeling weaker than usual. Denies chest pain, headache, syncope, palpitations, abdominal pain, vomiting, anti coagulation medications and other complaints. PMD: none provided Past Medical History Reviewed: Historical Data, Nursing Documentation, Vital Signs Vital Signs: Last Vital Signs Temp 97.5 F L 07/27/18 14:18 Pulse 81 07/27/18 14:18 Resp 16 07/27/18 14:18 BP 69/39 L 07/27/18 14:18 Pulse Ox 97 07/27/18 14:18 - Medical History PMH: Anemia, Anxiety, Back Problems (herniated disc), Deep Vein Thrombosis, Gastritis, Gall Bladder Disease (Cholelithiasis), HTN, Pancreatitis, Pneumonia, Seizures, Chronic Pain (left shoulder) Denies: CHF, Fractures, HIV, Hypercholesterolemia, Chronic Kidney Disease, Sexually Transmitted Disease - Surgical History Surgical History: Endoscopy - Family History Family History: States: Unknown Family Hx - Immunization History Hx Tetanus Toxoid Vaccination: Yes Hx Influenza Vaccination: Yes Hx Pneumococcal Vaccination: Yes - Home Medications Home Medications: Ambulatory Orders Medication Instructions Recorded RX: Levetiracetam [Keppra] 500 mg PO Q12 06/01/18 Tobramycin 0.3% [Tobramycin 5 Ml] 1 drop OD Q1 07/27/18 - Allergies Allergies/Adverse Reactions: Allergies Allergy/AdvReac Type Severity Reaction Status Date / Time aspirin AdvReac GI Bleed Verified 07/17/18 08:30 ibuprofen [From Motrin] AdvReac GI Bleed Verified 07/17/18 08:30 naproxen AdvReac GI bleed Verified 07/17/18 08:30 NSAIDS (Non-Steroidal AdvReac GI bleed Verified 07/18/18 08:01 Anti-Inflamma Review of Systems ROS Statement: Except As Marked, All Systems Reviewed And Found Negative Constitutional: Positive for: Weakness (generalized; and fatigue). Negative for: Fever Cardiovascular: Negative for: Chest Pain, Palpitations Respiratory: Negative for: Shortness of Breath Gastrointestinal: Positive for: Hematochezia. Negative for: Vomiting, Abdominal Pain Musculoskeletal: Positive for: Neck Pain Neurological: Negative for: Headache, Dizziness Physical Exam - Reviewed Nursing Documentation Reviewed: Yes Vital Signs Reviewed: Yes - Physical Exam Appears: Positive for: No Acute Distress (resting comfortably) Head Exam: Positive for: ATRAUMATIC, NORMAL INSPECTION, NORMOCEPHALIC Skin: Positive for: Normal Color, Warm, Dry. Negative for: Rash Eye Exam: Positive for: Normal appearance, EOMI (bilaterally; right eye has contact lense), PERRL ENT: Positive for: Normal ENT Inspection Neck: Positive for: Normal, Painless ROM, Supple Cardiovascular/Chest: Positive for: Regular Rate, Rhythm. Negative for: Murmur Respiratory: Positive for: Normal Breath Sounds. Negative for: Respiratory Distress Gastrointestinal/Abdominal: Positive for: Normal Exam, Soft. Negative for: Tenderness Back: Positive for: Normal Inspection. Negative for: L CVA Tenderness, R CVA Tenderness Rectal: Positive for: Stool Is Heme: (negative), Hemorrhoids, Other ([employer] is ELY Baeza). Negative for: Black Stool, Blood Streaked Stool Extremity: Positive for: Normal ROM (x 4). Negative for: Deformity Neurologic/Psych: Positive for: Alert, nursing officer II-XII (intact), Oriented (x 3). Negative for: Motor/Sensory Deficits, Facial Droop - Laboratory Results Result Diagrams: 07/27/18 15:20 07/27/18 15:20 - ECG O2 Sat by Pulse Oximetry: 97 (RA) Pulse Ox Interpretation: Normal Medical Decision Making Medical Decision Makin:51 Impression: alcohol intoxication, seizures, generalized weakness associated with hypertension Differential diagnoses include but are not limited to: anemia, GI bleed, dehydration, alcohol intoxication Initial Plan: --VBG --EKG --Alcohol --UDS --CMP --CBC --Lipase --PTT/Pt --NS IV 1,000 mls/hr --Protonix Inj 40 mg IVP --Blood cx 15:00 --Patient signed out to Dr. España pending labs and reevaluation. --- Scribe Attestation: Documented by Gloria Moran, acting as a scribe for Cathy Salazar MD Provider Scribe Attestation: All medical record entries made by the Scribe were at my direction and personal ly dictated by me. I have reviewed the chart and agree that the record accurately reflects my personal performance of the history, physical exam, medical decision making, and the department course for this patient. I have also personally directed, reviewed, and agree with the discharge instructions and disposition. Disposition - Clinical Impression Clinical Impression: Alcohol abuse with intoxication, GI bleed, Hypotension - Patient ED Disposition Is Patient to be Admitted: Transfer of Care Counseled Patient/Family Regarding: Studies Performed, Diagnosis - Disposition Disposition: Transfer of Care Disposition Time: 15:00 Condition: STABLE Patient Signed Over To: Haydee España
[2018-07-27 15:53] LABS: VENOUS BLOOD GAS BASE EXCESS -4.8 mmol/L (0.0-2.0); VENOUS BLOOD GAS PCO2 34 mmHg (40-60); VENOUS BLOOD GAS PO2 39 mm/Hg (30-55); VENOUS BLOOD PH 7.37 (7.32-7.43)
[2018-07-27 16:07] LABS: BASO % 0.6 % (0.0-2.0); EOS # 0.6 K/uL (0.0-0.7); EOS % 14.7 % (0.0-4.0); HEMOGLOBIN 7.7 g/dL (12.0-18.0); LYMPH # 0.9 K/uL (1.0-4.3); LYMPH % 22.7 % (20.0-40.0); MEAN CELL VOLUME 87.9 fl (80.0-94.0); MEAN CORPUSCULAR HEMOGLOBIN 27.9 pg (27.0-31.0); MEAN CORPUSCULAR HGB CONC 31.8 g/dL (33.0-37.0); MEAN PLATELET VOLUME 7.8 fl (7.2-11.7); MONO # 0.6 K/uL (0.0-0.8); MONO % 14.2 % (0.0-10.0); NEUT # 1.9 K/uL (1.8-7.0); NEUT % 47.8 % (50.0-75.0); NRBC % 0.1 % (0.0-0.0); RBC 2.74 Mil/uL (4.40-5.90)
[2018-07-27 16:14] LABS: INR 1.4; PROTHROMBIN TIME 16.1 Seconds (9.8-13.1)
[2018-07-27 16:16] LABS: PARTIAL THROMBOPLASTIN TIME 33.6 Seconds (25.6-37.1)
--- NOTE | 2018-07-27 16:18 | ED PDOC ---
- Laboratory Results Result Diagrams: 07/28/18 05:10 07/27/18 15:20 Lab Results: pO2 39 mm/Hg (30-55) 07/27/18 15:43 VBG pH 7.37 (7.32-7.43) 07/27/18 15:43 VBG pCO2 34 mmHg (40-60) L 07/27/18 15:43 VBG HCO3 20.5 mmol/L 07/27/18 15:43 VBG Total CO2 20.7 mmol/L (22-28) L 07/27/18 15:43 VBG O2 Sat (Calc) 75.4 % (40-65) H 07/27/18 15:43 VBG Base Excess -4.8 mmol/L (0.0-2.0) L 07/27/18 15:43 VBG Potassium 3.4 mmol/L (3.6-5.2) L 07/27/18 15:43 Sodium 142.0 mmol/L (132-148) 07/27/18 15:43 Chloride 120.0 mmol/L (98-107) H 07/27/18 15:43 Glucose 98 mg/dL (75-110) 07/27/18 15:43 Lactate 2.3 mmol/L (0.7-2.1) H 07/27/18 15:43 FiO2 21.0 % 07/27/18 15:43 Crit Value Called To eran Salazar md 07/27/18 15:43 Crit Value Called By Corey villafana 07/27/18 15:43 Crit Value Read Back Y 07/27/18 15:43 Blood Gas Notified Time 1552 07/27/18 15:43 - ECG O2 Sat by Pulse Oximetry: 97 (RA) Pulse Ox Interpretation: Normal Medical Decision Making Medical Decision Makin:00 --Patient signed out to this provider by Dr. Salazar pending labs and reevaluat ion. 16:20 --Patient is anemic. Blood transfusion ordered and consent signed by patient. --Case discussed with admitting team and Dr. Martino. --Patient is to receive two blood transfusion and be admitted to telemetry floor. Scribe Attestation: Documented by Gloria Moran acting as a scribe for Haydee España MD Provider Scribe Attestation: All medical record entries made by the Scribe were at my direction and personally dictated by me. I have reviewed the chart and agree that the record accurately reflects my personal performance of the history, physical exam, medical decision making, and the department course for this patient. I have also personally directed, reviewed, and agree with the discharge instructions and disposition. Disposition - Clinical Impression Clinical Impression: Alcohol abuse with intoxication, GI bleed, Hypotension - POA Present On Arrival: None - Disposition Disposition: Admitted as In-Patient Disposition Time: 16:28 Condition: STABLE
[2018-07-27 16:26] LABS: ALB/GLOB RATIO 0.7 (1.0-2.1); ALBUMIN 2.6 g/dL (3.5-5.0); ALT/SGPT 34 U/L (21-72); AST/SGOT 68 U/L (17-59); BLOOD UREA NITROGEN 21 mg/dl (9-20); CALCIUM 8.3 mg/dL (8.4-10.2); GFR NON-AFRICAN AMERICAN > 60
--- NOTE | 2018-07-27 16:46 | CP.PCM.HP ---
<TeofiloAlondra sims - Last Filed: 07/27/18 17:43> History of Present Illness - History of Present Illness History of Present Illness: 53 y/o male w/ pmhx of ETOH abuse, unwitnessed seizures, cirrhosis (s/p TIPS), GIB reports having a shot of vodka earlier today and falling. He reports having a bloody bowel movement yesterday. Denies nausea/vomiting, headaches, visual changes, CP, SOB, abd pain. Of note, patient has extensive history, multiple admissions, as well as many ER visits, usually for GI bleed, etoh intoxication, and "seizures"/falls. PMD: none PMHx: ETOH abuse, unwitnessed seizures, cirrhosis (s/p TIPS), hepatic encephalopathy, esophageal varices Surgical hx: TIPs in 2014 Social hx: smoker; 3 cigarettes a day, 1.5 ppd previously, etoh abuse Family hx: father [place], mother smoker and of lung cancer, sister diagnosed with colon cancer, recently Allergies: asprin, ibuprofen, naproxen, NSAIDs (nausea for all of them) Next of Kin: [facility] [phone] Code status: Full code Present on Admission - Present on Admission Any Indicators Present on Admission: No History of DVT/PE: No History of Uncontrolled Diabetes: No Urinary Catheter: No Decubitus Ulcer Present: No Review of Systems - Review of Systems All systems: reviewed and no additional remarkable complaints except - EENT Eyes: absent: Blurred Vision Ears: Disequilibrium, Dizziness. absent: Tinnitus Nose/Mouth/Throat: absent: Epistaxis - Cardiovascular Cardiovascular: absent: Chest Pain - Respiratory Respiratory: absent: Cough, Dyspnea - Gastrointestinal Gastrointestinal: Hematochezia. absent: Nausea, Vomiting - Genitourinary Genitourinary: absent: Dysuria - Musculoskeletal Musculoskeletal: absent: Numbness, Tingling - Neurological Neurological: absent: Headaches Past Patient History - Infectious Disease Hx of Infectious Diseases: None - Tetanus Immunizations Tetanus Immunization: Unknown - Past Medical History & Family History Past Medical History?: Yes - Past Social History Smoking Status: Current Some Days Smoker - CARDIAC Hx Congestive Heart Failure: No Hx Hypercholesterolemia: No Hx Hypertension: Yes - PULMONARY Hx Pneumonia: Yes - NEUROLOGICAL Hx Seizures: Yes - HEENT Hx HEENT Problems: No - RENAL Hx Chronic Kidney Disease: No - ENDOCRINE/METABOLIC Hx Endocrine Disorders: No - HEMATOLOGICAL/ONCOLOGICAL Hx Anemia: Yes Hx Human Immunodeficiency Virus (HIV): No - INTEGUMENTARY Hx Dermatological Problems: No - MUSCULOSKELETAL/RHEUMATOLOGICAL Hx Fractures: No - GASTROINTESTINAL Hx Gall Bladder Disease: Yes (Cholelithiasis) Hx Gastritis: Yes Hx Pancreatitis: Yes - GENITOURINARY/GYNECOLOGICAL Hx Sexually Transmitted Disorders: No - PSYCHIATRIC Hx Anxiety: Yes - SURGICAL HISTORY Other/Comment: left pinky - ANESTHESIA Hx Anesthesia: Yes Hx Anesthesia Reactions: No Hx Malignant Hyperthermia: No Meds Allergies/Adverse Reactions: Allergies Allergy/AdvReac Type Severity Reaction Status Date / Time aspirin AdvReac GI Bleed Verified 07/17/18 08:30 ibuprofen [From Motrin] AdvReac GI Bleed Verified 07/17/18 08:30 naproxen AdvReac GI bleed Verified 07/17/18 08:30 NSAIDS (Non-Steroidal AdvReac GI bleed Verified 07/18/18 08:01 Anti-Inflamma Physical Exam - Constitutional Appears: No Acute Distress, Older Than Stated Age - Head Exam Head Exam: ATRAUMATIC, NORMAL INSPECTION - Eye Exam Eye Exam: EOMI Pupil Exam: PERRL - ENT Exam ENT Exam: Mucous Membranes Moist - Neck Exam Neck exam: Positive for: Normal Inspection - Respiratory Exam Respiratory Exam: Clear to Auscultation Bilateral, NORMAL BREATHING PATTERN - Cardiovascular Exam Cardiovascular Exam: REGULAR RHYTHM, +S1, +S2 - GI/Abdominal Exam GI & Abdominal Exam: Normal Bowel Sounds, Soft. absent: Tenderness - Extremities Exam Extremities exam: Positive for: normal inspection. Negative for: calf tenderness, pedal edema - Neurological Exam Neurological exam: Alert, Oriented x3 - Psychiatric Exam Psychiatric exam: Normal Mood - Skin Skin Exam: Dry, Intact, Warm Results - Vital Signs Recent Vital Signs: Last Vital Signs Temp 97.5 F L 07/27/18 14:18 Pulse 81 07/27/18 14:18 Resp 16 07/27/18 14:18 BP 69/39 L 07/27/18 14:18 Pulse Ox 97 07/27/18 16:17 - Labs Result Diagrams: 07/27/18 15:20 07/27/18 15:20 Labs: Laboratory Results - last 24 hr 07/27/18 07/27/18 07/27/18 14:32 15:20 15:20 WBC 4.0 L RBC 2.74 L Hgb 7.7 L Hct 24.1 L MCV 87.9 MCH 27.9 MCHC 31.8 L RDW 20.0 H Plt Count 65 L D MPV 7.8 Neut % (Auto) 47.8 L Lymph % (Auto) 22.7 [place] % (Auto) 14.2 H Eos % (Auto) 14.7 H Baso % (Auto) 0.6 Neut # (Auto) 1.9 Lymph # (Auto) 0.9 L [place] # (Auto) 0.6 Eos # (Auto) 0.6 Baso # (Auto) 0.0 PT INR APTT pO2 VBG pH VBG pCO2 VBG HCO3 VBG Total CO2 VBG O2 Sat (Calc) VBG Base Excess VBG Potassium Glucose Lactate FiO2 Crit Value Called To Crit Value Called By Crit Value Read Back Blood Gas Notified Time Sodium 142 Potassium 3.7 Chloride 111 H Carbon Dioxide 20 L Anion Gap 15 BUN 21 H Creatinine 0.7 L Est GFR ( Amer) > 60 Est GFR (Non-Af Amer) > 60 POC Glucose (mg/dL) 87 Random Glucose 83 Calcium 8.3 L Total Bilirubin 1.2 AST 68 H ALT 34 Alkaline Phosphatase 144 H Total Protein 6.4 Albumin 2.6 L Globulin 3.8 Albumin/Globulin Ratio 0.7 L Venous Blood Potassium Alcohol, Quantitative 64 H BBK History Checked 07/27/18 07/27/18 07/27/18 15:20 15:20 15:43 WBC RBC Hgb Hct MCV MCH MCHC RDW Plt Count MPV Neut % (Auto) Lymph % (Auto) [place] % (Auto) Eos % (Auto) Baso % (Auto) Neut # (Auto) Lymph # (Auto) [place] # (Auto) Eos # (Auto) Baso # (Auto) PT 16.1 H INR 1.4 APTT 33.6 pO2 39 VBG pH 7.37 VBG pCO2 34 L VBG HCO3 20.5 VBG Total CO2 20.7 L VBG O2 Sat (Calc) 75.4 H VBG Base Excess -4.8 L VBG Potassium 3.4 L Glucose 98 Lactate 2.3 H FiO2 21.0 Crit Value Called To eran Salazar md Crit Value Called By Corey villafana Crit Value Read Back Y Blood Gas Notified Time 1552 Sodium 142.0 Potassium Chloride 120.0 H Carbon Dioxide Anion Gap BUN Creatinine Est GFR ( Amer) Est GFR (Non-Af Amer) POC Glucose (mg/dL) Random Glucose Calcium Total Bilirubin AST ALT Alkaline Phosphatase Total Protein Albumin Globulin Albumin/Globulin Ratio Venous Blood Potassium 3.4 L Alcohol, Quantitative BBK History Checked Patient has bt Assessment & Plan - Assessment and Plan (Free Text) Assessment: 53 y/o male w/ pmhx of ETOH abuse, unwitnessed seizures, cirrhosis (s/p TIPS), hepatic encephalograph is admitted for hypotension and anemia. Plan: Hypotension 69/39 on admission admit to telemetry s/p 1L IV bolus of NS in ER likley 2/2 to anemia vs. dehydration Monitor BPs Anemia Hx of GI bleed Hgb on admission 7.7 Transfuse 2 units PRBC and follow up H/H Hx of Seizures, Fall probably 2/2 to ETOH Abuse vs seizure, unwitnessed Alcohol level 64 on admission Cont Keppra 500 PO BID PT eval and treatment ordered Etoh abuse CIWA protocol Ativan 1mg PO Q4H PRN Librium 50mg PO Q4H PRN B12 and Folate DVT prophylaxis SCDs Diet Hepatic diet Code Status Full code Decision To Admit - Pt Status Changed To: Hospital Disposition Of: Inpatient - Admit Certification Admit to Inpatient:: After my assessment, the patient will require hospitalization for at least two midnights. This is because of the severity of symptoms shown, intensity of services needed, and/or the medical risk in this patient being treated as an outpatient. - . Bed Request Type: Telemetry Admitting Physician: Shasha Martino <Shasha Martino - Last Filed: 07/27/18 18:43> Results - Vital Signs Recent Vital Signs: Last Vital Signs Temp 98.4 F 07/27/18 18:40 Pulse 75 07/27/18 18:40 Resp 20 07/27/18 18:40 BP 94/58 L 07/27/18 18:40 Pulse Ox 96 07/27/18 18:33 - Labs Result Diagrams: 07/27/18 15:20 07/27/18 15:20 Labs: Laboratory Results - last 24 hr 07/27/18 07/27/18 07/27/18 14:32 15:20 15:20 WBC 4.0 L RBC 2.74 L Hgb 7.7 L Hct 24.1 L MCV 87.9 MCH 27.9 MCHC 31.8 L RDW 20.0 H Plt Count 65 L D MPV 7.8 Neut % (Auto) 47.8 L Lymph % (Auto) 22.7 [place] % (Auto) 14.2 H Eos % (Auto) 14.7 H Baso % (Auto) 0.6 Neut # (Auto) 1.9 Lymph # (Auto) 0.9 L [place] # (Auto) 0.6 Eos # (Auto) 0.6 Baso # (Auto) 0.0 PT INR APTT pO2 VBG pH VBG pCO2 VBG HCO3 VBG Total CO2 VBG O2 Sat (Calc) VBG Base Excess VBG Potassium Glucose Lactate FiO2 Crit Value Called To Crit Value Called By Crit Value Read Back Blood Gas Notified Time Sodium 142 Potassium 3.7 Chloride 111 H Carbon Dioxide 20 L Anion Gap 15 BUN 21 H Creatinine 0.7 L Est GFR ( Amer) > 60 Est GFR (Non-Af Amer) > 60 POC Glucose (mg/dL) 87 Random Glucose 83 Calcium 8.3 L Total Bilirubin 1.2 AST 68 H ALT 34 Alkaline Phosphatase 144 H Total Protein 6.4 Albumin 2.6 L Globulin 3.8 Albumin/Globulin Ratio 0.7 L Venous Blood Potassium Urine Opiates Screen Urine Methadone Screen Ur Barbiturates Screen Ur Phencyclidine Scrn Ur Amphetamines Screen U Benzodiazepines Scrn U Oth Cocaine Metabols U Cannabinoids Screen Alcohol, Quantitative 64 H Blood Type Antibody Screen Crossmatch BBK History Checked 07/27/18 07/27/18 07/27/18 15:20 15:20 15:43 WBC RBC Hgb Hct MCV MCH MCHC RDW Plt Count MPV Neut % (Auto) Lymph % (Auto) [place] % (Auto) Eos % (Auto) Baso % (Auto) Neut # (Auto) Lymph # (Auto) [place] # (Auto) Eos # (Auto) Baso # (Auto) PT 16.1 H INR 1.4 APTT 33.6 pO2 39 VBG pH 7.37 VBG pCO2 34 L VBG HCO3 20.5 VBG Total CO2 20.7 L VBG O2 Sat (Calc) 75.4 H VBG Base Excess -4.8 L VBG Potassium 3.4 L Glucose 98 Lactate 2.3 H FiO2 21.0 Crit Value Called To eran Salazar md Crit Value Called By Corey villafana Crit Value Read Back Y Blood Gas Notified Time 1552 Sodium 142.0 Potassium Chloride 120.0 H Carbon Dioxide Anion Gap BUN Creatinine Est GFR ( Amer) Est GFR (Non-Af Amer) POC Glucose (mg/dL) Random Glucose Calcium Total Bilirubin AST ALT Alkaline Phosphatase Total Protein Albumin Globulin Albumin/Globulin Ratio Venous Blood Potassium 3.4 L Urine Opiates Screen Urine Methadone Screen Ur Barbiturates Screen Ur Phencyclidine Scrn Ur Amphetamines Screen U Benzodiazepines Scrn U Oth Cocaine Metabols U Cannabinoids Screen Alcohol, Quantitative Blood Type O POSITIVE Antibody Screen Negative Crossmatch See Detail BBK History Checked Patient has bt 07/27/18 18:07 WBC RBC Hgb Hct MCV MCH MCHC RDW Plt Count MPV Neut % (Auto) Lymph % (Auto) [place] % (Auto) Eos % (Auto) Baso % (Auto) Neut # (Auto) Lymph # (Auto) [place] # (Auto) Eos # (Auto) Baso # (Auto) PT INR APTT pO2 VBG pH VBG pCO2 VBG HCO3 VBG Total CO2 VBG O2 Sat (Calc) VBG Base Excess VBG Potassium Glucose Lactate FiO2 Crit Value Called To Crit Value Called By Crit Value Read Back Blood Gas Notified Time Sodium Potassium Chloride Carbon Dioxide Anion Gap BUN Creatinine Est GFR ( Amer) Est GFR (Non-Af Amer) POC Glucose (mg/dL) Random Glucose Calcium Total Bilirubin AST ALT Alkaline Phosphatase Total Protein Albumin Globulin Albumin/Globulin Ratio Venous Blood Potassium Urine Opiates Screen Negative Urine Methadone Screen Negative Ur Barbiturates Screen Negative Ur Phencyclidine Scrn Negative Ur Amphetamines Screen Negative U Benzodiazepines Scrn Negative U Oth Cocaine Metabols Negative U Cannabinoids Screen Negative Alcohol, Quantitative Blood Type Antibody Screen Crossmatch BBK History Checked Attending/Attestation - Attestation I have personally seen and examined this patient.: Yes I have fully participated in the care of the patient.: Yes I have reviewed all pertinent clinical information: Yes Notes (Text): 07/27/18 18:41 53 year old male cirrhosis, ETOH abuse, HX GIB, coagulopathy, well known to our service reports large bloody BM yesterday, none since. Patient H/H 7.7/24.1, mildly hypotensive upon arrival to ED, responded to fluid bolus. Now HD stable receiving 2 units PRBC. Reeval tomorrow, as well as PT.
[2018-07-27 18:38] LABS: BARBITURATES, UR NEGATIVE (NEGATIVE); BENZODIAZEPINES, UR NEGATIVE (NEGATIVE); OPIATES, UR NEGATIVE (NEGATIVE); PHENCYCLIDINE, UR NEGATIVE (NEGATIVE)
[2018-07-28 05:31] LABS: HEMOGLOBIN 9.6 g/dL (12.0-18.0); MEAN CELL VOLUME 88.5 fl (80.0-94.0); MEAN CORPUSCULAR HEMOGLOBIN 28.7 pg (27.0-31.0); MEAN CORPUSCULAR HGB CONC 32.4 g/dL (33.0-37.0); RBC 3.33 Mil/uL (4.40-5.90); WHITE BLOOD COUNT 3.8 K/uL (4.8-10.8)
[2018-07-28] MEDS ORDERED: Multivitamin With Minerals Tab PO SCH (09:00)
--- NOTE | 2018-07-28 09:23 | CARD ---
APPROVED REPORT Date of service: 07/27/2018 EKG Measurement Heart [id number] <Conclusion> Normal sinus rhythm Prolonged QT Abnormal ECG
--- NOTE | 2018-07-28 11:50 | CP.PCM.DIS ---
Provider - Provider Date of Admission: 07/27/18 16:28 Attending physician: Shasha Martino DO Time Spent in preparation of Discharge (in minutes): 35 Diagnosis - Discharge Diagnosis (1) Hypotension Status: Resolved Priority: Low (2) Alcohol abuse with intoxication Status: Chronic Priority: Low (3) Anemia Status: Acute Priority: Low Hospital Course - Lab Results Lab Results: Most Recent Lab Values WBC 3.8 K/uL (4.8-10.8) L 07/28/18 05:10 RBC 3.33 Mil/uL (4.40-5.90) L 07/28/18 05:10 Hgb 9.6 g/dL (12.0-18.0) L 07/28/18 05:10 Hct 29.5 % (35.0-51.0) L 07/28/18 05:10 MCV 88.5 fl (80.0-94.0) 07/28/18 05:10 MCH 28.7 pg (27.0-31.0) 07/28/18 05:10 MCHC 32.4 g/dL (33.0-37.0) L 07/28/18 05:10 RDW 19.0 % (11.5-14.5) H 07/28/18 05:10 Plt Count 71 K/uL (130-400) L 07/28/18 05:10 MPV 7.8 fl (7.2-11.7) 07/27/18 15:20 Neut % (Auto) 47.8 % (50.0-75.0) L 07/27/18 15:20 Lymph % (Auto) 22.7 % (20.0-40.0) 07/27/18 15:20 [place] % (Auto) 14.2 % (0.0-10.0) H 07/27/18 15:20 Eos % (Auto) 14.7 % (0.0-4.0) H 07/27/18 15:20 Baso % (Auto) 0.6 % (0.0-2.0) 07/27/18 15:20 Neut # (Auto) 1.9 K/uL (1.8-7.0) 07/27/18 15:20 Lymph # (Auto) 0.9 K/uL (1.0-4.3) L 07/27/18 15:20 [place] # (Auto) 0.6 K/uL (0.0-0.8) 07/27/18 15:20 Eos # (Auto) 0.6 K/uL (0.0-0.7) 07/27/18 15:20 Baso # (Auto) 0.0 K/uL (0.0-0.2) 07/27/18 15:20 PT 16.1 Seconds (9.8-13.1) H 07/27/18 15:20 INR 1.4 07/27/18 15:20 APTT 33.6 Seconds (25.6-37.1) 07/27/18 15:20 pO2 39 mm/Hg (30-55) 07/27/18 15:43 VBG pH 7.37 (7.32-7.43) 07/27/18 15:43 VBG pCO2 34 mmHg (40-60) L 07/27/18 15:43 VBG HCO3 20.5 mmol/L 07/27/18 15:43 VBG Total CO2 20.7 mmol/L (22-28) L 07/27/18 15:43 VBG O2 Sat (Calc) 75.4 % (40-65) H 07/27/18 15:43 VBG Base Excess -4.8 mmol/L (0.0-2.0) L 07/27/18 15:43 VBG Potassium 3.4 mmol/L (3.6-5.2) L 07/27/18 15:43 Sodium 142.0 mmol/L (132-148) 07/27/18 15:43 Chloride 120.0 mmol/L (98-107) H 07/27/18 15:43 Glucose 98 mg/dL (75-110) 07/27/18 15:43 Lactate 2.3 mmol/L (0.7-2.1) H 07/27/18 15:43 FiO2 21.0 % 07/27/18 15:43 Crit Value Called To eran Salazar md 07/27/18 15:43 Crit Value Called By Corey villafana 07/27/18 15:43 Crit Value Read Back Y 07/27/18 15:43 Blood Gas Notified Time 1552 07/27/18 15:43 Sodium 142 mmol/l (132-148) 07/27/18 15:20 Potassium 3.7 MMOL/L (3.6-5.0) 07/27/18 15:20 Chloride 111 mmol/L (98-107) H 07/27/18 15:20 Carbon Dioxide 20 mmol/L (22-30) L 07/27/18 15:20 Anion Gap 15 (10-20) 07/27/18 15:20 BUN 21 mg/dl (9-20) H 07/27/18 15:20 Creatinine 0.7 mg/dl (0.8-1.5) L 07/27/18 15:20 Est GFR ( Amer) > 60 07/27/18 15:20 Est GFR (Non-Af Amer) > 60 07/27/18 15:20 POC Glucose (mg/dL) 87 mg/dL (65-110) 07/27/18 14:32 Random Glucose 83 mg/dL (75-110) 07/27/18 15:20 Calcium 8.3 mg/dL (8.4-10.2) L 07/27/18 15:20 Total Bilirubin 1.2 mg/dl (0.2-1.3) 07/27/18 15:20 AST 68 U/L (17-59) H 07/27/18 15:20 ALT 34 U/L (21-72) 07/27/18 15:20 Alkaline Phosphatase 144 U/L (38-126) H 07/27/18 15:20 Total Protein 6.4 G/DL (6.3-8.2) 07/27/18 15:20 Albumin 2.6 g/dL (3.5-5.0) L 07/27/18 15:20 Globulin 3.8 gm/dL (2.2-3.9) 07/27/18 15:20 Albumin/Globulin Ratio 0.7 (1.0-2.1) L 07/27/18 15:20 Venous Blood Potassium 3.4 mmol/L (3.6-5.2) L 07/27/18 15:43 Urine Opiates Screen Negative (NEGATIVE) 07/27/18 18:07 Urine Methadone Screen Negative (NEGATIVE) 07/27/18 18:07 Ur Barbiturates Screen Negative (NEGATIVE) 07/27/18 18:07 Ur Phencyclidine Scrn Negative (NEGATIVE) 07/27/18 18:07 Ur Amphetamines Screen Negative (NEGATIVE) 07/27/18 18:07 U Benzodiazepines Scrn Negative (NEGATIVE) 07/27/18 18:07 U Oth Cocaine Metabols Negative (NEGATIVE) 07/27/18 18:07 U Cannabinoids Screen Negative (NEGATIVE) 07/27/18 18:07 Alcohol, Quantitative 64 mg/dl (0-10) H 07/27/18 15:20 Blood Type O POSITIVE 07/27/18 15:20 Antibody Screen Negative 07/27/18 15:20 Crossmatch See Detail 07/27/18 15:20 BBK History Checked Patient has bt 07/27/18 15:20 - Hospital Course Hospital Course: 53 y/o male w/ pmhx of ETOH abuse, unwitnessed seizures, cirrhosis (s/p TIPS), GIB admitted for anemia (H/H 7/7/42.1) and hypotension. Patient was transfused 2 units of PRBC. Hemoglobin stable (H/H 9.6/29.5), hypotension resolved. PT cleared patient for discharge to home w/ outpatient physical therapy recommendations. Patient given written scripts for outpatient PT as well as Keppra 500mg PO BID. Patient stable for discharge to home w/ instructions to follow up in [facility] within 1 week. Discharge Exam - Head Exam Head Exam: ATRAUMATIC - Eye Exam Eye Exam: EOMI, PERRL - ENT Exam ENT Exam: Mucous Membranes Moist - Respiratory Exam Respiratory Exam: Clear to PA & Lateral, NORMAL BREATHING PATTERN - Cardiovascular Exam Cardiovascular Exam: REGULAR RHYTHM, +S1, +S2 - GI/Abdominal Exam GI & Abdominal Exam: Normal Bowel Sounds, Soft. absent: Tenderness - Extremities Exam Extremities exam: normal inspection - Neurological Exam Neurological exam: Alert, Oriented x3 - Psychiatric Exam Psychiatric exam: Normal Affect - Skin Skin Exam: Dry, Intact, Warm Discharge Plan - Follow Up Plan Condition: STABLE Disposition: HOME/ ROUTINE Instructions: Gastrointestinal Bleeding (DC), Alcohol Abuse and Alcoholism (DC) Referrals: [facility] [Outside]
[2018-07-28 16:12] VITALS: BP 129/69; PULSE 77; RESP 16; TEMP 98.3
[2018-07-29 04:24] VITALS: O2SAT 97
== END 2018-07-28 18:00 | disposition home or self-care (01) | DRG 144 ==
LOC: H.ER 14:16 → INTOOBSV 16:28 → H.ERHOLD 16:28 → OBSVTOIN 16:28 → H.TEL 21:16
PROVIDERS: ADMIT Student in an Organized Health Care Education/Training Program; ATTEND Student in an Organized Health Care Education/Training Program
DX: I95.89 Other hypotension (principal); E86.0 Dehydration; K74.60 Unspecified cirrhosis of liver; R56.9 Unspecified convulsions; D61.818 Other pancytopenia; F10.129 Alcohol abuse with intoxication, unspecified; D64.9 Anemia, unspecified; I10 Essential (primary) hypertension; Z80.0 Family history of malignant neoplasm of digestive organs; Z80.1 Family history of malignant neoplasm of trachea, bronchus and lung; Z87.891 Personal history of nicotine dependence; Z87.01 Personal history of pneumonia (recurrent)

== ENCOUNTER 2018-07-29 08:46 | Emergency (ER) | payer MEDICAID ==
[2018-07-29 08:46] VITALS: BMI 23.4
[2018-07-29 08:49] VITALS: BP 127/92; PULSE 84; RESP 18; TEMP 98.2; O2SAT 99
--- NOTE | 2018-07-29 09:31 | ED PDOC ---
Lower Extremity Pain/Injury Time Seen by Provider: 07/29/18 09:25 Chief Complaint (Nursing): Seizure Chief Complaint (Provider): Lower Extremity Problem History Per: Patient History/Exam Limitations: no limitations Additional Complaint(s): 53 years old male well known to the ED for frequent visits presents for evaluation of bilateral leg pain. Otherwise, patient has no other complaints. PMD: None provided Past Medical History Reviewed: Historical Data, Nursing Documentation, Vital Signs Vital Signs: Last Vital Signs Temp 98.2 F 07/29/18 08:49 Pulse 84 07/29/18 08:49 Resp 18 07/29/18 08:49 BP 127/92 H 07/29/18 08:49 Pulse Ox 99 07/29/18 08:49 - Medical History PMH: Anemia, Anxiety, Back Problems (herniated disc), Deep Vein Thrombosis, Gastritis, Gall Bladder Disease (Cholelithiasis), HTN, Pancreatitis, Pneumonia, Seizures, Chronic Pain (left shoulder) Denies: CHF, Fractures, HIV, Hypercholesterolemia, Chronic Kidney Disease, Sexually Transmitted Disease - Surgical History Surgical History: Endoscopy - Family History Family History: States: Unknown Family Hx - Social History Current smoker - smoking cessation education provided: Yes Alcohol: Social Drugs: Denies - Immunization History Hx Tetanus Toxoid Vaccination: Yes Hx Influenza Vaccination: Yes Hx Pneumococcal Vaccination: Yes - Home Medications Home Medications: Ambulatory Orders Medication Instructions Recorded Levetiracetam [Keppra] 500 mg PO Q12 06/01/18 - Allergies Allergies/Adverse Reactions: Allergies Allergy/AdvReac Type Severity Reaction Status Date / Time aspirin AdvReac GI Bleed Verified 07/29/18 08:55 ibuprofen [From Motrin] AdvReac GI Bleed Verified 07/29/18 08:55 naproxen AdvReac GI bleed Verified 07/29/18 08:55 NSAIDS (Non-Steroidal AdvReac GI bleed Verified 07/29/18 08:55 Anti-Inflamma Review of Systems ROS Statement: Except As Marked, All Systems Reviewed And Found Negative Musculoskeletal: Positive for: Leg Pain (Bilateral) Physical Exam - Reviewed Nursing Documentation Reviewed: Yes Vital Signs Reviewed: Yes - Physical Exam Appears: Positive for: No Acute Distress Head Exam: Positive for: ATRAUMATIC, NORMOCEPHALIC Eye Exam: Positive for: Other (Right eye: haziness to inferior portion of pupil) Neck: Positive for: Normal, Painless ROM, Supple Cardiovascular/Chest: Positive for: Regular Rate, Rhythm. Negative for: Murmur Respiratory: Positive for: Normal Breath Sounds. Negative for: Wheezing Extremity: Positive for: Normal ROM, Swelling (mild swelling to lower extremities bilaterally). Negative for: Calf Tenderness, Other (Erythema) Neurologic/Psych: Positive for: Alert, Oriented (x3) - ECG O2 Sat by Pulse Oximetry: 99 (RA) Pulse Ox Interpretation: Normal Medical Decision Making Medical Decision Making: Time: 929 --Patient is Known for bed seeking behavior. Will discharge patient. ----- Scribe Attestation: Documented by Lucina Walton, acting as a scribe for Jonathan Sousa MD. Provider Scribe Attestation: All medical record entries made by the Scribe were at my direction and personally dictated by me. I have reviewed the chart and agree that the record accurately reflects my personal performance of the history, physical exam, medical decision making, and the department course for this patient. I have also personally directed, reviewed, and agree with the discharge instructions and disposition. Disposition - Clinical Impression Clinical Impression: Foot pain - Patient ED Disposition Is Patient to be Admitted: No - Disposition Referrals: [facility] [Outside] Disposition: Routine/Home Disposition Time: 09:30 Condition: STABLE Instructions: Foot Sprain (DC) Forms: [employer] (I[place]ic)
== END 2018-07-29 11:17 | disposition home or self-care (01) ==
LOC: H.ER 08:46
DX: M79.673 Pain in unspecified foot (principal)

== ENCOUNTER 2018-07-29 17:04 | Emergency (ER) | payer MEDICAID ==
[2018-07-29 17:04] VITALS: BMI 23.4
[2018-07-29 19:21] VITALS: RESP 18; TEMP 98.7; O2SAT 98
--- NOTE | 2018-07-29 19:45 | ED PDOC ---
HPI: Eye Injury/Pain Time Seen by Provider: 07/29/18 19:30 Chief Complaint (Nursing): Eye Problem Chief Complaint (Provider): right eye pain History Per: Patient History/Exam Limitations: no limitations Onset/Duration Of Symptoms: Days Current Symptoms Are (Timing): Still Present Additional Complaint(s): Shreyas Sepulveda is a 53 year old male, with a past medical history of HTN, who presents to the emergency department complaining initially of right eye pain. Patient states he has an appointment with Dr. Massey tomorrow. He has antibiotic contact lenses placed. Patient also reports he can't walk, he was seen earlier today and was given a walker but states he left it at his sister's house. When asked if he wants Tylenol for pain, he responds "can I have a sandwich?" He denies any fever, chills or other medical complaints. PMD: Clinic Past Medical History Reviewed: Historical Data, Nursing Documentation, Vital Signs Vital Signs: Last Vital Signs Temp 98.7 F 07/29/18 19:17 Pulse 75 07/29/18 19:17 Resp 18 07/29/18 19:17 BP 132/82 07/29/18 19:17 Pulse Ox 98 07/29/18 19:17 - Medical History PMH: Anemia, Anxiety, Back Problems (herniated disc), Deep Vein Thrombosis, Gastritis, Gall Bladder Disease (Cholelithiasis), HTN, Pancreatitis, Pneumonia, Seizures, Chronic Pain (left shoulder) Denies: CHF, Fractures, HIV, Hypercholesterolemia, Chronic Kidney Disease, Sexually Transmitted Disease - Surgical History Surgical History: Endoscopy - Family History Family History: States: Unknown Family Hx - Immunization History Hx Tetanus Toxoid Vaccination: Yes Hx Influenza Vaccination: Yes Hx Pneumococcal Vaccination: Yes - Home Medications Home Medications: Ambulatory Orders Medication Instructions Recorded Levetiracetam [Keppra] 500 mg PO Q12 06/01/18 - Allergies Allergies/Adverse Reactions: Allergies Allergy/AdvReac Type Severity Reaction Status Date / Time aspirin AdvReac GI Bleed Verified 07/29/18 19:23 ibuprofen [From Motrin] AdvReac GI Bleed Verified 07/29/18 19:23 naproxen AdvReac GI bleed Verified 07/29/18 19:23 NSAIDS (Non-Steroidal AdvReac GI bleed Verified 07/29/18 19:23 Anti-Inflamma Review of Systems ROS Statement: Except As Marked, All Systems Reviewed And Found Negative Constitutional: Negative for: Fever, Chills Eyes: Positive for: Pain (right eye) Physical Exam - Reviewed Nursing Documentation Reviewed: Yes Vital Signs Reviewed: Yes - Physical Exam Appears: Positive for: No Acute Distress Head Exam: Positive for: ATRAUMATIC, NORMAL INSPECTION, NORMOCEPHALIC Skin: Positive for: Normal Color, Warm, Dry Eye Exam: Positive for: EOMI, PERRL, Conjunctival injection (right eye), Other (Contact lens noted) Neck: Positive for: Normal, Painless ROM, Supple Cardiovascular/Chest: Positive for: Regular Rate, Rhythm. Negative for: Murmur Respiratory: Positive for: Normal Breath Sounds. Negative for: Respiratory Distress Extremity: Positive for: Normal ROM (upper and lower extremities). Negative for: Deformity, Swelling Neurologic/Psych: Positive for: Alert, Oriented - ECG O2 Sat by Pulse Oximetry: 98 (RA) Pulse Ox Interpretation: Normal Medical Decision Making Medical Decision Making: Time: 19:30 Initial Impression: right eye pain Initial Plan: --Reevaluation 19:[address] Massey who states patient was supposed to be seen today. Advised that patient come to his office tomorrow at 10am to remove lens that is in right eye currently. States it cannot be in more than 5 days and was supposed to be removed today. We will observe patient today and d/c home tomorrow 9am to help assist transportation to Dr. Massey's office. Scribe Attestation: Documented by Giovany Puri, acting as a scribe for Ceci Rangel PA-C. Provider Scribe Attestation: All medical record entries made by the Scribe were at my direction and personally dictated by me. I have reviewed the chart and agree that the record accurately reflects my personal performance of the history, physical exam, medical decision making, and the department course for this patient. I have also personally directed, reviewed, and agree with the discharge instructions and disposition. Disposition - Clinical Impression Clinical Impression: Corneal ulcer - Patient ED Disposition Is Patient to be Admitted: Transfer of Care - Disposition Disposition: Transfer of Care Disposition Time: 00:00 Condition: FAIR Patient Signed Over To: Haydee España Handoff Comments: observe. patient to d/c at 9am
[2018-07-30 08:40] VITALS: BP 126/80; PULSE 78
== END 2018-07-30 08:30 | disposition home or self-care (01) ==
LOC: H.ER 17:04
DX: H16.001 Unspecified corneal ulcer, right eye (principal); Z88.6 Allergy status to analgesic agent; Z86.718 Personal history of other venous thrombosis and embolism; I10 Essential (primary) hypertension

== ENCOUNTER 2018-08-01 14:41 | Emergency (ER) | payer MEDICAID ==
[2018-08-01 14:41] VITALS: BMI 21.1
[2018-08-01 16:44] VITALS: BP 142/75; TEMP 97.6
[2018-08-01 16:45] VITALS: PULSE 95; RESP 20; O2SAT 0
== END 2018-08-01 17:10 | disposition left against medical advice (07) ==
LOC: H.ER 14:41
DX: Z02.89 Encounter for other administrative examinations (principal)

== ENCOUNTER 2018-08-03 17:53 | Emergency (ER) | payer MEDICAID ==
[2018-08-03 17:53] VITALS: BMI 21.1
[2018-08-03 19:19] VITALS: RESP 18
--- NOTE | 2018-08-03 23:10 | ED PDOC ---
HPI: Seizure Time Seen by Provider: 08/03/18 19:12 Chief Complaint (Nursing): Seizure Chief Complaint (Provider): Seizure History Per: Patient History/Exam Limitations: no limitations Recent Seizure Activity Began: Just Before Arrival Length Of Seizures (Duration): Unknown Additional Complaint(s): Shreyas Sepulveda is a 53 year old male with a past medical history of seizures, HTN, and DVT, who presents to the emergency department after having a witness seizure. Patient was eating at a restaurant and states the he remembers feeling dizzy and then waking up to EMS. Witnesses told EMS that he hit the back of his neck on a chair when he fell and he currently reports to have mild neck pain. Patient is complaint with seizure medication and he further admits to hai erickson today. He denies having any dizziness, pain, tongue biting or loss of urination. On triage patient was noted to have bugs on clothes. Patient was allowed to shower and his clothing was removed. He denies having any bug bites or itching. Patient is requesting assistance to apply eye drops due to chronic eye infection. He also denies having any pain to his eye and states that he follows up with Dr. Massey. PMD: Chanelle Rowe Past Medical History Reviewed: Historical Data, Nursing Documentation, Vital Signs Vital Signs: Last Vital Signs Temp 97.2 F L 08/03/18 19:59 Pulse 79 08/03/18 19:59 Resp 18 08/03/18 19:59 BP 136/73 08/03/18 19:59 Pulse Ox 97 08/03/18 19:59 - Medical History PMH: Anemia, Anxiety, Back Problems (herniated disc), Deep Vein Thrombosis, Gastritis, Gall Bladder Disease (Cholelithiasis), HTN, Pancreatitis, Pneumonia, Seizures, Chronic Pain (left shoulder) Denies: CHF, Fractures, HIV, Hypercholesterolemia, Chronic Kidney Disease, Sexually Transmitted Disease - Surgical History Surgical History: Endoscopy - Family History Family History: States: Unknown Family Hx - Immunization History Hx Tetanus Toxoid Vaccination: Yes Hx Influenza Vaccination: Yes Hx Pneumococcal Vaccination: Yes - Home Medications Home Medications: Ambulatory Orders Medication Instructions Recorded RX: Levetiracetam [Keppra] 500 mg PO Q12 06/01/18 - Allergies Allergies/Adverse Reactions: Allergies Allergy/AdvReac Type Severity Reaction Status Date / Time aspirin AdvReac GI Bleed Verified 08/03/18 17:56 ibuprofen [From Motrin] AdvReac GI Bleed Verified 08/03/18 17:56 naproxen AdvReac GI bleed Verified 08/03/18 17:56 NSAIDS (Non-Steroidal AdvReac GI bleed Verified 08/03/18 17:56 Anti-Inflamma Review of Systems ROS Statement: Except As Marked, All Systems Reviewed And Found Negative Eyes: Negative for: Pain Genitourinary Male: Negative for: Frequency Musculoskeletal: Positive for: Neck Pain Skin: Negative for: Rash (itching ) Neurological: Positive for: Seizures, Dizziness Physical Exam - Reviewed Nursing Documentation Reviewed: Yes Vital Signs Reviewed: Yes - Physical Exam Appears: Positive for: Non-toxic, No Acute Distress Head Exam: Positive for: ATRAUMATIC, NORMOCEPHALIC Skin: Positive for: Normal Color, Warm, Dry Eye Exam: Positive for: Other (right eye: cloudy). Negative for: Periorbital swelling, Periorbital tenderness Neck: Positive for: Normal, Painless ROM, Supple Cardiovascular/Chest: Positive for: Regular Rate, Rhythm. Negative for: Murmur Respiratory: Positive for: Normal Breath Sounds. Negative for: Respiratory Distress Gastrointestinal/Abdominal: Positive for: Normal Exam, Soft. Negative for: Tenderness Back: Positive for: Vertebral Tenderness (mild TTP to spine). Negative for: L CVA Tenderness, R CVA Tenderness Extremity: Positive for: Normal ROM. Negative for: Pedal Edema, Deformity Neurologic/Psych: Positive for: Alert, Oriented. Negative for: Motor/Sensory Deficits - ECG O2 Sat by Pulse Oximetry: 97 (RA) Pulse Ox Interpretation: Normal Medical Decision Making Medical Decision Making: Time: 2010 A/P: Work up for breakthrough seizure with neck pain. CT neck, loaded dose of Keppra. Eye drops applied as per request by patient. Patient is tolerating PO and will most likely be discharged if CT is normal. Tylenol for pain. --CT cervical spine without contrast --CT head without contrast --Tylenol 650 mg PO --Keppra 1,000 mg PO --Glucose Time: 2214 Patient tolerated medication and CT results are unremarkable. Patient will be discharged and told to follow up with Dr. Massey and PMD as needed. Scribe Attestation: Documented by Bradley Og, acting as a scribe for Haydee España MD. Provider Scribe Attestation: All medical record entries made by the Scribe were at my direction and personally dictated by me. I have reviewed the chart and agree that the record accurately reflects my personal performance of the history, physical exam, medical decision making, and the department course for this patient. I have also personally directed, reviewed, and agree with the discharge instructions and di sposition. Disposition - Clinical Impression Clinical Impression: Alcohol use, Seizure - Disposition Disposition: Routine/Home Disposition Time: 22:15 Condition: IMPROVED Additional Instructions: Follow up with Dr. Massey and with primary medical doctor. Continue to take medications as prescribed. Instructions: Alcohol Use - When Is Drinking a Problem?, Seizures, Adult (DC) Forms: [employer] (Amharic) Print Language: CUBAN
[2018-08-04 04:42] VITALS: TEMP 98.3
[2018-08-04 06:27] VITALS: BP 136/75; PULSE 86
--- NOTE | 2018-08-04 10:03 | CT ---
Date of service: 08/03/2018 PROCEDURE: CT HEAD WITHOUT CONTRAST. HISTORY: head trauma COMPARISON: None available. TECHNIQUE: Axial computed tomography images were obtained through the head/brain without intravenous contrast. Radiation dose: Total exam DLP = 797.71 mGy-cm. This CT exam was performed using one or more of the following dose reduction techniques: Automated exposure control, adjustment of the mA and/or kV according to patient size, and/or use of iterative reconstruction technique. FINDINGS: HEMORRHAGE: No intracranial hemorrhage. BRAIN: No intracranial mass. Minimal diffuse atrophy. Mild to moderate patchy periventricular and deep/subcortical white matter lucency consistent with microvascular white matter ischemic change. Slightly greater than expected for patient age. No evidence of acute infarct. VENTRICLES: Unremarkable. No hydrocephalus. CALVARIUM: Unremarkable. PARANASAL SINUSES: Unremarkable as visualized. No significant inflammatory changes. MASTOID AIR CELLS: Unremarkable as visualized. No inflammatory changes. OTHER FINDINGS: None. IMPRESSION: No acute intracranial hemorrhage. Age related atrophy and chronic white matter ischemic change slightly greater than expected for patient age. No additional abnormality. The preliminary findings for this examination were reported by [facility] at 8:37 p.m. on 08/03/2018. There is concurrence of this report with the preliminary findings.
--- NOTE | 2018-08-04 10:22 | CT ---
Date of service: 08/03/2018 PROCEDURE: CT Cervical Spine without contrast HISTORY: neck pain after seizure with fall COMPARISON: None available. TECHNIQUE: Axial computed tomography images were obtained of the cervical spine without the use of intravenous contrast. Coronal and sagittal reformatted images were created and reviewed. Radiation dose: Total exam DLP = 354.82 mGy-cm. This CT exam was performed using one or more of the following dose reduction techniques: Automated exposure control, adjustment of the mA and/or kV according to patient size, and/or use of iterative reconstruction technique. FINDINGS: VERTEBRAE: Vertebral bodies maintained in height. There is grade 1 anterolisthesis at C4-5 and C5-6, likely degenerative in origin. Normal alignment is maintained elsewhere. The atlantoaxial articulation and odontoid process are preserved. DISCS/SPINAL CANAL/NEURAL FORAMINA: There is narrowing at the C6-7 intervertebral disc space and minimal narrowing of the C5-6 intervertebral disc space, consistent with degenerative disc disease. There is no central spinal stenosis. There is moderate to severe left C6-7 neural foraminal stenosis noted PARASPINAL SOFT TISSUES: Unremarkable. OTHER FINDINGS: None. IMPRESSION: No evidence of fracture. Grade 1 anterolisthesis at C5-6 likely degenerative in origin. Minor findings as above. The preliminary findings for this examination were reported by [facility] at 8:47 p.m. on 08/03/2018. There is concurrence of this report with the preliminary findings.
[2018-08-06 13:25] VITALS: O2SAT 97
== END 2018-08-04 06:42 | disposition home or self-care (01) ==
LOC: H.ER 17:53
DX: F10.129 Alcohol abuse with intoxication, unspecified (principal); R56.9 Unspecified convulsions; S09.90XA Unspecified injury of head, initial encounter; W19.XXXA Unspecified fall, initial encounter; Y92.89 Other specified places as the place of occurrence of the external cause; F41.9 Anxiety disorder, unspecified; G89.29 Other chronic pain; I10 Essential (primary) hypertension; Z86.718 Personal history of other venous thrombosis and embolism; Z88.6 Allergy status to analgesic agent

== ENCOUNTER 2018-08-12 13:51 | Emergency (ER) | payer MEDICAID ==
[2018-08-12 13:51] VITALS: BMI 21.1
[2018-08-12 14:53] VITALS: RESP 18; O2SAT 98
--- NOTE | 2018-08-12 17:51 | ED PDOC ---
Lower Extremity Pain/Injury Time Seen by Provider: 08/12/18 17:23 Chief Complaint (Nursing): Lower Extremity Problem/Injury Chief Complaint (Provider): Lower Extremity Problem/Injury History Per: Patient History/Exam Limitations: no limitations Onset/Duration Of Symptoms: Days (x4 days) Current Symptoms Are (Timing): Still Present Additional Complaint(s): Shreyas Sepulveda is a 53 year old male with a past medical history of GI bleeds, alcohol abuse, anxiety and HTN, who presents to the emergency department complaining of left foot pain that is worsening gradually over the past x4 days. He states he has been walking with a cane frequently and denies any fever, chills or trauma. PMD: No provider Past Medical History Reviewed: Historical Data, Nursing Documentation, Vital Signs Vital Signs: Last Vital Signs Temp 97.9 F 08/12/18 14:50 Pulse 94 H 08/12/18 14:50 Resp 18 08/12/18 14:50 BP 143/82 08/12/18 14:50 Pulse Ox 98 08/12/18 14:50 - Medical History PMH: Anemia, Anxiety, Back Problems (herniated disc), Deep Vein Thrombosis, Gastritis, Gall Bladder Disease (Cholelithiasis), HTN, Pancreatitis, Pneumonia, Seizures, Chronic Pain (left shoulder) Denies: CHF, Fractures, HIV, Hypercholesterolemia, Chronic Kidney Disease, Sexually Transmitted Disease - Surgical History Surgical History: Endoscopy - Family History Family History: States: Unknown Family Hx - Immunization History Hx Tetanus Toxoid Vaccination: Yes Hx Influenza Vaccination: Yes Hx Pneumococcal Vaccination: Yes - Home Medications Home Medications: Ambulatory Orders Medication Instructions Recorded RX: Levetiracetam [Keppra] 500 mg PO Q12 06/01/18 - Allergies Allergies/Adverse Reactions: Allergies Allergy/AdvReac Type Severity Reaction Status Date / Time aspirin AdvReac GI Bleed Verified 08/12/18 14:53 naproxen AdvReac GI bleed Verified 08/12/18 14:53 NSAIDS (Non-Steroidal AdvReac GI bleed Verified 08/12/18 14:53 Anti-Inflamma Review of Systems ROS Statement: Except As Marked, All Systems Reviewed And Found Negative Constitutional: Negative for: Fever, Chills Musculoskeletal: Positive for: Foot Pain (left) Physical Exam - Reviewed Nursing Documentation Reviewed: Yes Vital Signs Reviewed: Yes - Physical Exam Appears: Positive for: Non-toxic, No Acute Distress Extremity: Positive for: Normal ROM (on flexion and extension of toes and ankle), Other (plantar aspect of left foot: blister on the plantar; (-) erythema, edema, ecchymosis; or drainage) - ECG O2 Sat by Pulse Oximetry: 98 (RA) Pulse Ox Interpretation: Normal Medical Decision Making Medical Decision Making: Time: 1747 Plan: --Tylenol 650 mg PO --non-adherent dressing placed with gauze. Scribe Attestation: Documented by Bradley Og, acting as a scribe for Saba Lund PA-C. Provider Scribe Attestation: All medical record entries made by the Scribe were at my direction and personally dictated by me. I have reviewed the chart and agree that the record accurately reflects my personal performance of the history, physical exam, medical decision making, and the department course for this patient. I have also personally directed, reviewed, and agree with the discharge instructions and disposition. Disposition - Clinical Impression Clinical Impression: Blister of foot without infection - Disposition Referrals: Podiatry Clinic [Outside] Disposition Time: 18:20 Condition: STABLE Additional Instructions: Avoid excessive walking or friction on left foot. Use Bacitracin or Neosporin on wound if it opens. F/u in Podiatry clinic for further care. Instructions: Blisters Forms: [employer] (Mohawk) Print Language: CITIZ[place] OF [place]
[2018-08-12 18:20] VITALS: BP 140/79; PULSE 88; TEMP 98.1
== END 2018-08-12 18:18 | disposition short-term general hospital (02) ==
LOC: H.ER 13:51
DX: S90.829A Blister (nonthermal), unspecified foot, initial encounter (principal); X58.XXXA Exposure to other specified factors, initial encounter; Y92.89 Other specified places as the place of occurrence of the external cause

== ENCOUNTER 2018-08-22 05:50 | Emergency (ER) | payer MEDICAID ==
[2018-08-22 06:01] VITALS: BMI 23.0
--- NOTE | 2018-08-22 06:16 | ED PDOC ---
HPI: Seizure Time Seen by Provider: 08/22/18 05:52 Chief Complaint (Nursing): Seizure Chief Complaint (Provider): Seizure History Per: Patient History/Exam Limitations: no limitations Additional Complaint(s): 53 y/o male who is well known to the ED presents complaining of seizure. Patient states that he had a seizure that was witnessed by his friend while in a hotel room. He states he hasn't drank in a few days. Patient also is complaining of acute on chronic leg pain. Patient follows with Dr. Kaur, neurologist. Past Medical History Vital Signs: Last Vital Signs Temp 97.5 F L 08/22/18 05:55 Pulse 94 H 08/22/18 05:55 Resp 18 08/22/18 05:55 BP 133/60 08/22/18 05:55 Pulse Ox 96 08/22/18 05:55 - Medical History PMH: Anemia, Anxiety, Back Problems (herniated disc), Deep Vein Thrombosis, Gastritis, Gall Bladder Disease (Cholelithiasis), HTN, Pancreatitis, Pneumonia, Seizures, Chronic Pain (left shoulder) Denies: CHF, Fractures, HIV, Hypercholesterolemia, Chronic Kidney Disease, Sexually Transmitted Disease - Surgical History Surgical History: Endoscopy - Family History Family History: States: Unknown Family Hx - Immunization History Hx Tetanus Toxoid Vaccination: Yes Hx Influenza Vaccination: Yes Hx Pneumococcal Vaccination: Yes - Home Medications Home Medications: Ambulatory Orders Medication Instructions Recorded Levetiracetam [Keppra] 500 mg PO Q12 06/01/18 - Allergies Allergies/Adverse Reactions: Allergies Allergy/AdvReac Type Severity Reaction Status Date / Time aspirin AdvReac GI Bleed Verified 08/22/18 05:55 naproxen AdvReac GI bleed Verified 08/22/18 05:55 NSAIDS (Non-Steroidal AdvReac GI bleed Verified 08/22/18 05:55 Anti-Inflamma Review of Systems ROS Statement: Except As Marked, All Systems Reviewed And Found Negative Musculoskeletal: Positive for: Leg Pain Neurological: Positive for: Seizures Physical Exam - Reviewed Nursing Documentation Reviewed: Yes Vital Signs Reviewed: Yes - Physical Exam Appears: Positive for: Well, Non-toxic, No Acute Distress Head Exam: Positive for: ATRAUMATIC, NORMAL INSPECTION, NORMOCEPHALIC Skin: Positive for: Normal Color, Warm, DRY Eye Exam: Positive for: EOMI, Normal appearance, PERRL ENT: Positive for: Normal ENT Inspection Neck: Positive for: Normal, Painless ROM Cardiovascular/Chest: Positive for: Regular Rate, Rhythm. Negative for: Murmur Respiratory: Positive for: Normal Breath Sounds. Negative for: Respiratory Distress Gastrointestinal/Abdominal: Positive for: Normal Exam, Soft. Negative for: Tenderness Back: Positive for: Normal Inspection Extremity: Positive for: Normal ROM. Negative for: Pedal Edema, Deformity Neurologic/Psych: Positive for: Alert, Oriented. Negative for: Motor/Sensory Deficits - ECG O2 Sat by Pulse Oximetry: 96 (RA) Pulse Ox Interpretation: Normal Medical Decision Making Medical Decision Making: Time: 06:14 Initial Impression: Seizure and acute on chronic leg pain Initial Plan: * Tylenol 650 mg pt states he has no way to get home. pt reevaluated 645 am, in no distress, resting comfortably, awake and alert 07:00 Patient care endorsed to Dr. Salazar pending social work referral. Scribe Attestation: Documented by Raghu Salazar acting as a scribe for Amanda Washington MD. Provider Scribe Attestation: All medical record entries made by the Scribe were at my direction and personally dictated by me. I have reviewed the chart and agree that the record accurately reflects my personal performance of the history, physical exam, medical decision making, and the department course for this patient. I have also personally directed, reviewed, and agree with the discharge instructions and disposition. Disposition - Clinical Impression Clinical Impression: Drug withdrawal seizure, Chronic leg pain - Patient ED Disposition Is Patient to be Admitted: Transfer of Care - Disposition Disposition: Transfer of Care Disposition Time: 07:00 Condition: IMPROVED Additional Instructions: follow up as an outpatient return to the ED with any worsening or concerning symptoms Instructions: Drug Withdrawal (DC), Seizures Forms: [employer] (Cuban) Patient Signed Over To: Cathy Salazar
--- NOTE | 2018-08-22 07:05 | ED PDOC ---
- Laboratory Results Result Diagrams: 08/22/18 08:44 08/22/18 08:44 - ECG O2 Sat by Pulse Oximetry: 96 (RA) - Progress Re-evaluation Time: 10:37 Condition: Re-examined, Improved Medical Decision Making Medical Decision Making: Time: 0700 --Patient is endorsed to provider by Dr. Washington, pending social work referral and final disposition. Time: 0818 --grocery worker paged. At present, patient is calm, resting comfortably, appears in no apparent distress with stable vitals. 0830 PT consult placed 1020 Patient is evaluate by PT and ambulatory with cane as at baseline. Scribe Attestation: Documented by Dulce Hoffmann, acting as a scribe for Cathy Salazar MD. Provider Scribe Attestation: All medical record entries made by the Scribe were at my direction and p ersonally dictated by me. I have reviewed the chart and agree that the record accurately reflects my personal performance of the history, physical exam, medical decision making, and the department course for this patient. I have also personally directed, reviewed, and agree with the discharge instructions and disposition. Disposition Doctor Will See Patient In The: Office Counseled Patient/Family Regarding: Studies Performed, Diagnosis - Clinical Impression Clinical Impression: Drug withdrawal seizure, Chronic leg pain, Anemia - POA Present On Arrival: None - Disposition Referrals: [facility] [Outside] Disposition: Routine/Home Disposition Time: 10:39 Condition: IMPROVED Additional Instructions: follow up as an outpatient return to the ED with any worsening or concerning symptoms Instructions: Seizures, Anemia of Chronic Disease
[2018-08-22 09:26] LABS: BASO % 0.3 % (0.0-2.0); EOS # 0.4 K/uL (0.0-0.7); EOS % 7.8 % (0.0-4.0); HEMOGLOBIN 8.7 g/dL (12.0-18.0); LYMPH # 0.6 K/uL (1.0-4.3); LYMPH % 11.9 % (20.0-40.0); MEAN CORPUSCULAR HEMOGLOBIN 30.2 pg (27.0-31.0); MEAN CORPUSCULAR HGB CONC 33.5 g/dL (33.0-37.0); MEAN PLATELET VOLUME 8.5 fl (7.2-11.7); MONO # 0.5 K/uL (0.0-0.8); MONO % 9.5 % (0.0-10.0); NEUT # 3.5 K/uL (1.8-7.0); NEUT % 70.5 % (50.0-75.0); RBC 2.88 Mil/uL (4.40-5.90); RED CELL DISTRIBUTION WIDTH 17.8 % (11.5-14.5)
[2018-08-22 09:47] LABS: BLOOD UREA NITROGEN 31 mg/dl (9-20); CALCIUM 7.8 mg/dL (8.4-10.2); GFR NON-AFRICAN AMERICAN > 60
[2018-08-22] MEDS ORDERED: Potassium Chloride 20 mEq ER Tab PO ONE (10:37)
[2018-08-22 10:41] VITALS: O2SAT 98
[2018-08-22 11:44] VITALS: BP 128/78; PULSE 78; RESP 20; TEMP 97.6
== END 2018-08-22 11:44 | disposition home or self-care (01) ==
LOC: H.ER 05:50
DX: R56.9 Unspecified convulsions (principal); D64.9 Anemia, unspecified; G89.29 Other chronic pain; F19.939 Other psychoactive substance use, unspecified with withdrawal, unspecified; F41.9 Anxiety disorder, unspecified; I10 Essential (primary) hypertension; Z86.718 Personal history of other venous thrombosis and embolism; Z88.6 Allergy status to analgesic agent
CPT/HCPCS: 80048; 82550; 85025; 97162; 99285; G8978; G8979

== ENCOUNTER 2018-08-24 16:39 | Emergency (ER) | payer MEDICAID ==
[2018-08-24 16:40] VITALS: BMI 23.0
[2018-08-24 16:42] VITALS: RESP 16
[2018-08-24 21:41] VITALS: BP 128/72; PULSE 72; TEMP 97.9; O2SAT 99
--- NOTE | 2018-08-24 22:20 | ED PDOC ---
HPI: Psych/Substance Abuse Time Seen by Provider: 08/24/18 16:47 Chief Complaint (Nursing): Alcohol Ingestion Chief Complaint (Provider): ETOH ED Caveat: Intoxicated History Per: Patient History/Exam Limitations: no limitations (Pt presents via EMS in an intoxicated condition; pt indicates no medical issues and has a half empty bottle of vodka in his posession. Pt denies trauma, NVD or other issues.) Past Medical History Reviewed: Historical Data, Nursing Documentation, Vital Signs Vital Signs: Last Vital Signs Temp 97.9 F 08/24/18 21:41 Pulse 72 08/24/18 21:41 Resp 16 08/24/18 21:41 BP 128/72 08/24/18 21:41 Pulse Ox 99 08/24/18 21:41 - Medical History PMH: Anemia, Anxiety, Back Problems (herniated disc), Deep Vein Thrombosis, Gastritis, Gall Bladder Disease (Cholelithiasis), HTN, Pancreatitis, Pneumonia, Seizures, Chronic Pain (left shoulder) Denies: CHF, Fractures, HIV, Hypercholesterolemia, Chronic Kidney Disease, Sexually Transmitted Disease - Surgical History Surgical History: Endoscopy - Family History Family History: States: Unknown Family Hx - Immunization History Hx Tetanus Toxoid Vaccination: Yes Hx Influenza Vaccination: Yes Hx Pneumococcal Vaccination: Yes - Home Medications Home Medications: Ambulatory Orders Medication Instructions Recorded Levetiracetam [Keppra] 500 mg PO Q12 06/01/18 - Allergies Allergies/Adverse Reactions: Allergies Allergy/AdvReac Type Severity Reaction Status Date / Time aspirin AdvReac GI Bleed Verified 08/24/18 16:41 naproxen AdvReac GI bleed Verified 08/24/18 16:41 NSAIDS (Non-Steroidal AdvReac GI bleed Verified 08/24/18 16:41 Anti-Inflamma Review of Systems ROS Statement: Except As Marked, All Systems Reviewed And Found Negative Psych: Positive for: Other (intoxiciation by alcohol) Physical Exam - Reviewed Nursing Documentation Reviewed: Yes Vital Signs Reviewed: Yes - Physical Exam Appears: Positive for: Well, No Acute Distress. Negative for: Uncomfortable Head Exam: Positive for: ATRAUMATIC, NORMAL INSPECTION Skin: Positive for: Normal Color, Warm, Dry. Negative for: Diaphoresis, Pallor, Rash Eye Exam: Positive for: Normal appearance, EOMI, PERRL. Negative for: Nystagmus, Periorbital swelling, Periorbital tenderness Neck: Positive for: Supple Cardiovascular/Chest: Positive for: Regular Rate, Rhythm Respiratory: Positive for: Normal Breath Sounds. Negative for: Wheezing Pulses-Carotid (L): 2+ Pulses-Carotid (R): 2+ Pulses-Radial (L): 2+ Pulses-Radial (R): 2+ - ECG O2 Sat by Pulse Oximetry: 99 Medical Decision Making Medical Decision Making: I: ETOH P: BAL and sobriety 1929- on reevaluation, the patient is approaching sobriety and is stable 2129 - on reevaluation, the patient is approaching sobriety and is stable 2229 - on reevaluation, the patient's gait is stable, he is speaking in clear and coherent sentences and his gaze is normal. The patient is clinically sober in my opinion and is stable for discharge Disposition - Clinical Impression Clinical Impression: Alcohol intoxication - Patient ED Disposition Is Patient to be Admitted: No Counseled Patient/Family Regarding: Diagnosis - Disposition Referrals: Alcoholics Anonymous [Outside] Disposition: Routine/Home Disposition Time: 22:50 Condition: STABLE Instructions: Alcohol Use - When Is Drinking a Problem?, Effects of Alcohol on Your Health
== END 2018-08-24 22:38 | disposition home or self-care (01) ==
LOC: H.ER 16:39
DX: F10.129 Alcohol abuse with intoxication, unspecified (principal); I10 Essential (primary) hypertension; Z86.718 Personal history of other venous thrombosis and embolism

== ENCOUNTER 2018-09-05 14:03 | Emergency (ER) | payer MEDICAID ==
[2018-09-05 14:04] VITALS: BMI 23.0
[2018-09-05 14:08] VITALS: BP 136/70; PULSE 84; RESP 18; TEMP 97.9; O2SAT 100
--- NOTE | 2018-09-05 17:51 | RAD ---
PROCEDURE: Radiographs of the Left Shoulder HISTORY: fall onto left shoulder COMPARISON: None available FINDINGS: BONES: Osseous demineralization limits evaluation for acute fracture lines. Large calcification consistent with calcific tendinitis. Question lucent fracture line along the lateral aspect of the humeral head however this simply may reflect projection of adjacent calcification. The distal clavicle and underlying ribs appear intact. JOINTS: No acute dislocation. SOFT TISSUES: Soft tissues appear unremarkable. No evidence of radiopaque foreign body. IMPRESSION: Osseous demineralization limits evaluation for acute fracture lines. Large calcification consistent with calcific tendinitis. Question lucent fracture line along the lateral aspect of the humeral head however this simply may reflect projection of adjacent calcification. Correlate with physical exam.
--- NOTE | 2018-09-05 17:56 | ED PDOC ---
Upper Extremity Pain/Injury Time Seen by Provider: 09/05/18 14:44 Chief Complaint (Nursing): Upper Extremity Problem/Injury Chief Complaint (Provider): Left shoulder pain, seizure History Per: Patient Additional History Per: Patient Additional Complaint(s): 53yo male with history of seizures, comes to ER for evaluation after [place] Patient also reports left shoulder pain. He denies any head injury, weakness, numbness, loss of consciousness, vomiting, tongue bite or incontinence. Patient is well known to ER for multiple visits with similar complaints. Past Medical History Reviewed: Historical Data, Nursing Documentation, Vital Signs Vital Signs: Last Vital Signs Temp 97.9 F 09/05/18 14:05 Pulse 84 09/05/18 14:05 Resp 18 09/05/18 14:05 BP 136/70 09/05/18 14:05 Pulse Ox 100 09/05/18 14:05 - Medical History PMH: Anemia, Anxiety, Back Problems (herniated disc), Deep Vein Thrombosis, Gastritis, Gall Bladder Disease (Cholelithiasis), HTN, Pancreatitis, Pneumonia, Seizures, Chronic Pain (left shoulder) Denies: CHF, Fractures, HIV, Hypercholesterolemia, Chronic Kidney Disease, Sexually Transmitted Disease - Surgical History Surgical History: Endoscopy - Family History Family History: States: Unknown Family Hx - Immunization History Hx Tetanus Toxoid Vaccination: Yes Hx Influenza Vaccination: Yes Hx Pneumococcal Vaccination: Yes - Home Medications Home Medications: Ambulatory Orders Medication Instructions Recorded Levetiracetam [Keppra] 500 mg PO Q12 06/01/18 - Allergies Allergies/Adverse Reactions: Allergies Allergy/AdvReac Type Severity Reaction Status Date / Time aspirin AdvReac GI Bleed Verified 08/24/18 16:41 naproxen AdvReac GI bleed Verified 08/24/18 16:41 NSAIDS (Non-Steroidal AdvReac GI bleed Verified 08/24/18 16:41 Anti-Inflamma Review of Systems Eyes: Negative for: Vision Change Gastrointestinal: Negative for: Nausea, Vomiting Genitourinary Male: Negative for: Incontinence Musculoskeletal: Positive for: Shoulder Pain Neurological: Positive for: Seizures. Negative for: Weakness, Numbness Physical Exam - Reviewed Nursing Documentation Reviewed: Yes Vital Signs Reviewed: Yes - Physical Exam Appears: Positive for: Non-toxic, No Acute Distress Head Exam: Positive for: ATRAUMATIC, NORMAL INSPECTION, NORMOCEPHALIC Skin: Positive for: Normal Color Eye Exam: Positive for: EOMI, PERRL Neck: Positive for: Painless ROM, Supple Extremity: Negative for: Normal ROM (decreased ROM with flexion and abduction of left shoulder with some tenderness on palpation of humeral head), Deformity, S welling Neurological/Psych: Positive for: Awake, Alert, Oriented (x 3), Gait (steady) - ECG O2 Sat by Pulse Oximetry: 100 (RA) Pulse Ox Interpretation: Normal Medical Decision Making Medical Decision Makinyo male with witnessed seizure, shoulder pain Plan: -- XR left shoulder -- Tylenol 975mg PO -- Keppra 500mg PO 1740 Patient left ER prior to treatment being completed. Shoulder x-ray: Osseous demineralization limits evaluation for acute fracture lines. Large calcification consistent with calcific tendinitis. Question lucent fracture line along the lateral aspect of the humeral head however this simply may reflect projection of adjacent calcification. Correlate with physical exam. Unable to provide patient with results of x-ray as left prior to treatment completion Scribe Attestation: Documented by Kajal Chakraborty acting as a scribe for STEPHAN Ryan. Provider Scribe Attestation: All medical record entries made by the Scribe were at my direction and personally dictated by me. I have reviewed the chart and agree that the record accurately reflects my personal performance of the history, physical exam, medical decision making, and the department course for this patient. I have also personally directed, reviewed, and agree with the discharge instructions and disposition. Disposition - Clinical Impression Clinical Impression: Seizures, Shoulder pain - Disposition Disposition: Left W/O Treatment Disposition Time: 17:53 Condition: FAIR Forms: [employer] (Turkish)
== END 2018-09-05 17:52 | disposition left against medical advice (07) ==
LOC: H.ER 14:03
DX: M25.512 Pain in left shoulder (principal); R56.9 Unspecified convulsions; G89.29 Other chronic pain; I10 Essential (primary) hypertension; Z86.718 Personal history of other venous thrombosis and embolism; Z88.6 Allergy status to analgesic agent; F41.9 Anxiety disorder, unspecified

== ENCOUNTER 2018-09-08 09:33 | Emergency (ER) | payer MEDICAID ==
[2018-09-08 09:37] VITALS: BMI 23.8
[2018-09-08 09:43] VITALS: RESP 18; TEMP 97.9; O2SAT 99
--- NOTE | 2018-09-08 13:09 | ED PDOC ---
HPI: Back Time Seen by Provider: 09/08/18 10:14 Chief Complaint (Nursing): Back Pain Chief Complaint (Provider): Back Pain History Per: Patient History/Exam Limitations: no limitations Onset/Duration Of Symptoms: Days Current Symptoms Are (Timing): Still Present Additional Complaint(s): 53 y/o male presents to the ED for evaluation of low back pain. Patient denies any falls or trauma. Pain is similar to chronic pain. Patient reports of ongoing right eye visual loss further stating he is due for a transplant at [facility]. Patient is known to ER provider and staff for frequent visits and bed seeking behavior. PMD: no provider Past Medical History Reviewed: Historical Data, Nursing Documentation, Vital Signs Vital Signs: Last Vital Signs Temp 97.9 F 09/08/18 09:36 Pulse 96 H 09/08/18 09:36 Resp 18 09/08/18 09:36 BP 149/81 09/08/18 09:36 Pulse Ox 99 09/08/18 09:36 - Medical History PMH: Anemia, Anxiety, Back Problems (herniated disc), Deep Vein Thrombosis, Gastritis, Gall Bladder Disease (Cholelithiasis), HTN, Pancreatitis, Pneumonia, Seizures, Chronic Pain (left shoulder) Denies: CHF, Fractures, HIV, Hypercholesterolemia, Chronic Kidney Disease, Sexually Transmitted Disease - Surgical History Surgical History: Endoscopy - Family History Family History: States: Unknown Family Hx - Immunization History Hx Tetanus Toxoid Vaccination: Yes Hx Influenza Vaccination: Yes Hx Pneumococcal Vaccination: Yes - Home Medications Home Medications: Ambulatory Orders Medication Instructions Recorded Levetiracetam [Keppra] 500 mg PO Q12 06/01/18 - Allergies Allergies/Adverse Reactions: Allergies Allergy/AdvReac Type Severity Reaction Status Date / Time aspirin AdvReac GI Bleed Verified 08/24/18 16:41 naproxen AdvReac GI bleed Verified 08/24/18 16:41 NSAIDS (Non-Steroidal AdvReac GI bleed Verified 08/24/18 16:41 Anti-Inflamma Review of Systems ROS Statement: Except As Marked, All Systems Reviewed And Found Negative Musculoskeletal: Positive for: Back Pain Physical Exam - Reviewed Nursing Documentation Reviewed: Yes Vital Signs Reviewed: Yes - Physical Exam Appears: Positive for: No Acute Distress Eye Exam: Positive for: Other (chronic visual changes) Respiratory: Negative for: Respiratory Distress Gastrointestinal/Abdominal: Positive for: Soft. Negative for: Tenderness Back: Positive for: Other (low back hypodensity) Neurological/Psych: Positive for: Gait (Normal and Stable gait) - ECG O2 Sat by Pulse Oximetry: 99 (RA) Pulse Ox Interpretation: Normal Medical Decision Making Medical Decision Making: Time: 1303 Impression: Low back pain Plan: -- Tylenol 650 mg PO Scribe Attestation: Documented by Tutu Butler, acting as a scribe Morena Lu DO. Provider Scribe Attestation: All medical record entries made by the Scribe were at my direction and personally dictated by me. I have reviewed the chart and agree that the record accurately reflects my personal performance of the history, physical exam, medical decision making, and the department course for this patient. I have also personally directed, reviewed, and agree with the discharge instructions and disposition. Disposition - Clinical Impression Clinical Impression: Back disorder - Patient ED Disposition Is Patient to be Admitted: No Counseled Patient/Family Regarding: Studies Performed, Diagnosis - Disposition Disposition: Routine/Home Disposition Time: 12:40 Condition: STABLE Instructions: Low Back Pain in Adults Forms: [employer] (Irish)
[2018-09-08 13:54] VITALS: BP 138/80; PULSE 87
== END 2018-09-08 13:06 | disposition home or self-care (01) ==
LOC: H.ER 09:33
DX: M54.9 Dorsalgia, unspecified (principal)

== ENCOUNTER 2018-09-13 07:36 | Emergency (ER) | payer MEDICAID ==
[2018-09-13 07:36] VITALS: BMI 23.8
--- NOTE | 2018-09-13 07:48 | ED PDOC ---
HPI: Back Time Seen by Provider: 09/13/18 07:42 Chief Complaint (Provider): Back pain History Per: Patient History/Exam Limitations: no limitations Onset/Duration Of Symptoms: Persistent Current Symptoms Are (Timing): Still Present Quality Of Discomfort: "Pain" Previous Symptoms: Chronic Pain Additional History Per: Patient Additional Complaint(s): 53yo male, well known to ER comes reporting chronic lower back pain. He denies any new trauma, injury, weakness or numbness of lower extremities. Patient denies any falls or trauma. Patient well known to provider and ER staff for frequent visits and bed-seeking behavior. Past Medical History Reviewed: Historical Data, Nursing Documentation, Vital Signs Vital Signs: Last Vital Signs Temp 98.2 F 09/13/18 07:39 Pulse 88 09/13/18 07:39 Resp 18 09/13/18 07:39 BP 152/74 H 09/13/18 07:39 Pulse Ox 99 09/13/18 07:39 - Medical History PMH: Anemia, Anxiety, Back Problems (herniated disc), Deep Vein Thrombosis, Gastritis, Gall Bladder Disease (Cholelithiasis), HTN, Pancreatitis, Pneumonia, Seizures, Chronic Pain (left shoulder) Denies: CHF, Fractures, HIV, Hypercholesterolemia, Chronic Kidney Disease, Sexually Transmitted Disease - Surgical History Surgical History: Endoscopy - Family History Family History: States: Unknown Family Hx - Immunization History Hx Tetanus Toxoid Vaccination: Yes Hx Influenza Vaccination: Yes Hx Pneumococcal Vaccination: Yes - Home Medications Home Medications: Ambulatory Orders Medication Instructions Recorded Levetiracetam [Keppra] 500 mg PO Q12 06/01/18 Acetaminophen [Tylenol] 650 mg PO Q6 #40 capsule 09/13/18 - Allergies Allergies/Adverse Reactions: Allergies Allergy/AdvReac Type Severity Reaction Status Date / Time aspirin AdvReac GI Bleed Verified 08/24/18 16:41 naproxen AdvReac GI bleed Verified 08/24/18 16:41 NSAIDS (Non-Steroidal AdvReac GI bleed Verified 08/24/18 16:41 Anti-Inflamma Review of Systems Constitutional: Negative for: Fever, Chills Cardiovascular: Negative for: Chest Pain Respiratory: Negative for: Shortness of Breath Musculoskeletal: Positive for: Back Pain Neurological: Negative for: Weakness, Numbness Physical Exam - Reviewed Nursing Documentation Reviewed: Yes Vital Signs Reviewed: Yes - Physical Exam Appears: Positive for: No Acute Distress Head Exam: Positive for: ATRAUMATIC, NORMAL INSPECTION, NORMOCEPHALIC Skin: Positive for: Normal Color Eye Exam: Positive for: Normal appearance Neck: Positive for: Supple Cardiovascular/Chest: Positive for: Regular Rate, Rhythm. Negative for: Tachycardia Respiratory: Positive for: Normal Breath Sounds. Negative for: Respiratory Distress Back: Positive for: Muscle Spasm (bilateral paralumbar muscle spasm). Negative for: Vertebral Tenderness Extremity: Positive for: Normal ROM Neurological/Psych: Positive for: Awake, Alert, Normal Tone, Oriented (x 3). Negative for: Motor/Sensory Deficits - ECG O2 Sat by Pulse Oximetry: 99 (RA) Pulse Ox Interpretation: Normal Medical Decision Making Medical Decision Makinyo with chronic lower back pain Plan: -- Tylenol 650mg PO Scribe Attestation: Documented by Kajal Chakraborty, acting as a scribe for Jonathan Sousa MD Provider Scribe Attestation: All medical record entries made by the Scribe were at my direction and personally dictated by me. I have reviewed the chart and agree that the record accurately reflects my personal performance of the history, physical exam, medical decision making, and the department course for this patient. I have also personally directed, reviewed, and agree with the discharge instructions and disposition. Disposition - Clinical Impression Clinical Impression: Back pain - Patient ED Disposition Is Patient to be Admitted: No Counseled Patient/Family Regarding: Diagnosis, Need For Followup, Rx Given - Disposition Referrals: [facility] [Outside] Disposition: Routine/Home Disposition Time: 08:17 Condition: FAIR Prescriptions: Acetaminophen [Tylenol] 650 mg PO Q6 #40 capsule Instructions: Low Back Pain in Adults
[2018-09-13 09:01] VITALS: BP 120/78; PULSE 78; RESP 19; TEMP 97.5; O2SAT 98
== END 2018-09-13 09:01 | disposition home or self-care (01) ==
LOC: H.ER 07:36
DX: M54.9 Dorsalgia, unspecified (principal); G89.29 Other chronic pain; I10 Essential (primary) hypertension; Z86.718 Personal history of other venous thrombosis and embolism

== ENCOUNTER 2018-09-18 07:45 | Emergency (ER) | payer MEDICAID ==
[2018-09-18 07:45] VITALS: BMI 23.8
--- NOTE | 2018-09-18 08:30 | ED PDOC ---
Lower Extremity Pain/Injury Time Seen by Provider: 09/18/18 08:09 Chief Complaint (Nursing): Lower Extremity Problem/Injury Chief Complaint (Provider): Lower Extremity Problem/Injury History Per: Patient History/Exam Limitations: no limitations Onset/Duration Of Symptoms: Days Current Symptoms Are (Timing): Still Present Additional Complaint(s): 53 y/o male presents to the ED for evaluation of bilateral foot pain. Patient is known well to ER staff and provider for bed seeking behavior and frequent visits. Patient states pain is located to the bottom of his feet. Patient notes of walking into the ED across town despite pain in feet. PMD: no provider Past Medical History Reviewed: Historical Data, Nursing Documentation, Vital Signs Vital Signs: Last Vital Signs Temp 98.6 F 09/18/18 07:48 Pulse 93 H 09/18/18 07:48 Resp 18 09/18/18 07:48 BP 164/72 H 09/18/18 07:48 Pulse Ox 99 09/18/18 07:48 - Medical History PMH: Anemia, Anxiety, Back Problems (herniated disc), Deep Vein Thrombosis, Gastritis, Gall Bladder Disease (Cholelithiasis), HTN, Pancreatitis, Pneumonia, Seizures, Chronic Pain (left shoulder) Denies: CHF, Fractures, HIV, Hypercholesterolemia, Chronic Kidney Disease, Sexually Transmitted Disease - Surgical History Surgical History: Endoscopy - Family History Family History: States: Unknown Family Hx - Immunization History Hx Tetanus Toxoid Vaccination: Yes Hx Influenza Vaccination: Yes Hx Pneumococcal Vaccination: Yes - Home Medications Home Medications: Ambulatory Orders Medication Instructions Recorded Levetiracetam [Keppra] 500 mg PO Q12 06/01/18 Acetaminophen [Tylenol] 650 mg PO Q6 #40 capsule 09/13/18 - Allergies Allergies/Adverse Reactions: Allergies Allergy/AdvReac Type Severity Reaction Status Date / Time aspirin AdvReac GI Bleed Verified 08/24/18 16:41 naproxen AdvReac GI bleed Verified 08/24/18 16:41 NSAIDS (Non-Steroidal AdvReac GI bleed Verified 08/24/18 16:41 Anti-Inflamma Review of Systems ROS Statement: Except As Marked, All Systems Reviewed And Found Negative Musculoskeletal: Positive for: Foot Pain Physical Exam - Reviewed Nursing Documentation Reviewed: Yes Vital Signs Reviewed: Yes - Physical Exam Appears: Positive for: No Acute Distress (poor hygiene). Negative for: Uncomfortable Head Exam: Positive for: ATRAUMATIC Skin: Positive for: Normal Color, Warm Eye Exam: Positive for: Normal appearance Neck: Positive for: Normal Cardiovascular/Chest: Positive for: Regular Rate, Rhythm Respiratory: Positive for: Normal Breath Sounds Extremity: Positive for: Normal ROM Neurological/Psych: Positive for: Awake, Alert, Oriented (x3). Negative for: Motor/Sensory Deficits - ECG O2 Sat by Pulse Oximetry: 99 (RA) Pulse Ox Interpretation: Normal Medical Decision Making Medical Decision Making: Scribe Attestation: Documented by Tutu Butler, acting as a scribe Brianna Huizar MD. Provider Scribe Attestation: All medical record entries made by the Scribe were at my direction and personally dictated by me. I have reviewed the chart and agree that the record accurately reflects my personal performance of the history, physical exam, medical decision making, and the department course for this patient. I have also personally directed, reviewed, and agree with the discharge instructions and disposition. Disposition - Clinical Impression Clinical Impression: Chronic foot pain - Patient ED Disposition Is Patient to be Admitted: No Doctor Will See Patient In The: Office Counseled Patient/Family Regarding: Diagnosis, Need For Followup - Disposition Disposition: Routine/Home Disposition Time: 09:09 Condition: STABLE Instructions: Chronic Pain Forms: [employer] (Nepali) - POA Present On Arrival: None
[2018-09-18 09:35] VITALS: BP 130/70; PULSE 83; RESP 16; TEMP 97.9
[2018-09-18 09:36] VITALS: O2SAT 100
== END 2018-09-18 09:35 | disposition home or self-care (01) ==
LOC: H.ER 07:45
DX: M79.672 Pain in left foot (principal); M79.671 Pain in right foot; G89.29 Other chronic pain; I10 Essential (primary) hypertension; Z86.718 Personal history of other venous thrombosis and embolism; Z88.6 Allergy status to analgesic agent

== ENCOUNTER 2018-09-19 14:59 | Emergency (ER) | payer MEDICAID ==
[2018-09-19 14:59] VITALS: BMI 23.8
== END 2018-09-19 16:15 | disposition left against medical advice (07) ==
LOC: H.ER 14:59
DX: Z02.89 Encounter for other administrative examinations (principal)

== ENCOUNTER 2018-09-19 17:21 | Emergency (ER) | payer MEDICAID ==
[2018-09-19 17:21] VITALS: BMI 23.8
--- NOTE | 2018-09-19 18:19 | ED PDOC ---
Lower Extremity Pain/Injury Time Seen by Provider: 09/19/18 18:15 Chief Complaint (Nursing): Lower Extremity Problem/Injury Chief Complaint (Provider): Bilateral feet pain History Per: Patient History/Exam Limitations: no limitations Onset/Duration Of Symptoms: Persistent Additional History Per: Patient Additional Complaint(s): 53yo male with history of seizures (on Keppra), comes to ER reporting bilateral foot pain. Pt reports walking a lot and the bottom of his feet hurt. Patient is well known to ER for frequent visits for same complaints. He denies any new falls, trauma or injuries to his feet. Patient well known for bed seeking behavior. No new complaints. PMD: [facility]-- was there today but did not mention foot pain Past Medical History Reviewed: Historical Data, Nursing Documentation, Vital Signs Vital Signs: Last Vital Signs Temp 98 F 09/19/18 17:48 Pulse 71 09/19/18 17:48 Resp 18 09/19/18 17:48 BP 128/78 09/19/18 17:48 Pulse Ox 99 09/19/18 17:48 - Medical History PMH: Anemia, Anxiety, Back Problems (herniated disc), Deep Vein Thrombosis, Gastritis, Gall Bladder Disease (Cholelithiasis), HTN, Pancreatitis, Pneumonia, Seizures, Chronic Pain (left shoulder) Denies: CHF, Fractures, HIV, Hypercholesterolemia, Chronic Kidney Disease, Sexually Transmitted Disease - Surgical History Surgical History: Endoscopy - Family History Family History: States: Unknown Family Hx - Immunization History Hx Tetanus Toxoid Vaccination: Yes Hx Influenza Vaccination: Yes Hx Pneumococcal Vaccination: Yes - Home Medications Home Medications: Ambulatory Orders Medication Instructions Recorded Levetiracetam [Keppra] 500 mg PO Q12 06/01/18 Acetaminophen [Tylenol] 650 mg PO Q6 #40 capsule 09/13/18 Acetaminophen [8 Hour Pain Relief] 650 mg PO Q8 PRN #20 tablet.er 09/19/18 - Allergies Allergies/Adverse Reactions: Allergies Allergy/AdvReac Type Severity Reaction Status Date / Time aspirin AdvReac GI Bleed Verified 09/19/18 17:48 naproxen AdvReac GI bleed Verified 09/19/18 17:48 NSAIDS (Non-Steroidal AdvReac GI bleed Verified 09/19/18 17:48 Anti-Inflamma Review of Systems ROS Statement: Except As Marked, All Systems Reviewed And Found Negative Musculoskeletal: Positive for: Foot Pain Neurological: Negative for: Seizures Physical Exam - Reviewed Nursing Documentation Reviewed: Yes Vital Signs Reviewed: Yes - Physical Exam Comments: GENERAL APPEARANCE: Patient is awake, alert, oriented x 3, in no acute distress. SKIN: Warm, dry; (-) cyanosis. LOWER EXTREMITY: No reproducible tenderness. Normal DP and PT pulses bilaterally. (+) Chronic skin changes. (+) Full ROM of bilateral lower extremities. (+) Hypertrophic nails. No signs of gangrene. no erythema, swelling, or signs of infection, ambulates well with cane (baseline per pt) CARDIOVASCULAR: (+) distal pulse. NEUROLOGIC: (+) distal sensation. - ECG O2 Sat by Pulse Oximetry: 99 (RA) Pulse Ox Interpretation: Normal Medical Decision Making Medical Decision Making: Chronic lower extremity pain Plan: -- Tylenol 650mg PO pt asked for a food tray, feet wrapped with dressing, given socks and pt was able to ambulate with improved pain to feet. discussed diagnosis, treatment, return precautions and f/u with pt who is understanding in agreement and stable for dc Scribe Attestation: Documented by Kajal Chakraborty, acting as a scribe for STEPHAN Joseph. Provider Scribe Attestation: All medical record entries made by the Scribe were at my direction and personally dictated by me. I have reviewed the chart and agree that the record accurately reflects my personal performance of the history, physical exam, medical decision making, and the department course for this patient. I have also personally directed, reviewed, and agree with the discharge instructions and disposition. Disposition - Clinical Impression Clinical Impression: Foot pain - Patient ED Disposition Is Patient to be Admitted: No Counseled Patient/Family Regarding: Studies Performed, Diagnosis, Need For Followup, Rx Given - Disposition Referrals: [facility] [Outside] Disposition: Transfer of Care Disposition Time: 19:12 Condition: IMPROVED Additional Instructions: Return to ED for new or worsening symptoms, fever >100.4, changes in skin color, unable to walk or move toes. Follow up with the clinic in 2-3 days. Rest and elevate your feet. Keep them clean and dry. Take Tylenol as needed for pain Prescriptions: Acetaminophen [8 Hour Pain Relief] 650 mg PO Q8 PRN #20 tablet.er PRN Reason: Pain, Moderate (4-7) Forms: [facility] (Bulgarian) Print Language: POLISH - POA Present On Arrival: None
[2018-09-19 19:33] VITALS: BP 124/76; PULSE 74; RESP 16; TEMP 97.9
[2018-09-20 12:13] VITALS: O2SAT 99
== END 2018-09-19 19:32 | disposition home or self-care (01) ==
LOC: H.ER 17:21
DX: M79.671 Pain in right foot (principal); M79.672 Pain in left foot; G89.29 Other chronic pain; I10 Essential (primary) hypertension; Z86.718 Personal history of other venous thrombosis and embolism; Z88.6 Allergy status to analgesic agent

== ENCOUNTER 2018-09-22 07:26 | Emergency (ER) | payer MEDICAID ==
[2018-09-22 07:27] VITALS: BMI 23.8
[2018-09-22 07:28] VITALS: TEMP 97.7; O2SAT 99
--- NOTE | 2018-09-22 07:49 | ED PDOC ---
HPI: Seizure Time Seen by Provider: 09/22/18 07:32 Chief Complaint (Nursing): Seizure Chief Complaint (Provider): Seizure History Per: Patient History/Exam Limitations: no limitations Recent Seizure Activity Began: Unknown Length Of Seizures (Duration): Unknown Associated Symptoms: denies: Bit Tongue Additional Complaint(s): Shreyas Sepulveda is a 53 year old male, with a past medical history of seizures, who presents to the emergency department via EMS for evaluation s/p an unwitnessed seizure this morning. Patient is nondomicile and states [place] when he had a seizure. He is currently taking Keppra daily but didn't take it today until after the seizure. Patient is well known to provider and ED staff for multiple visits with similar complaints. He denies any fall, head injuries, tongue biting or other medical complaints. PMD: None provided. Past Medical History Reviewed: Historical Data, Nursing Documentation, Vital Signs Vital Signs: Last Vital Signs Temp 97.7 F 09/22/18 07:27 Pulse 100 H 09/22/18 07:27 Resp 18 09/22/18 07:27 BP 126/74 09/22/18 07:27 Pulse Ox 99 09/22/18 07:27 - Medical History PMH: Anemia, Anxiety, Back Problems (herniated disc), Deep Vein Thrombosis, Gastritis, Gall Bladder Disease (Cholelithiasis), HTN, Pancreatitis, Pneumonia, Seizures, Chronic Pain (left shoulder) Denies: CHF, Fractures, HIV, Hypercholesterolemia, Chronic Kidney Disease, Sexually Transmitted Disease - Surgical History Surgical History: Endoscopy - Family History Family History: States: Unknown Family Hx - Social History Current smoker - smoking cessation education provided: Yes (Current some days smoker) Alcohol: < 2 Drinks/Day Drugs: Denies - Immunization History Hx Tetanus Toxoid Vaccination: Yes Hx Influenza Vaccination: Yes Hx Pneumococcal Vaccination: Yes - Home Medications Home Medications: Ambulatory Orders Medication Instructions Recorded Levetiracetam [Keppra] 500 mg PO Q12 06/01/18 Acetaminophen [Tylenol] 650 mg PO Q6 #40 capsule 09/13/18 Acetaminophen [8 Hour Pain Relief] 650 mg PO Q8 PRN #20 tablet.er 09/19/18 - Allergies Allergies/Adverse Reactions: Allergies Allergy/AdvReac Type Severity Reaction Status Date / Time aspirin AdvReac GI Bleed Verified 09/19/18 17:48 naproxen AdvReac GI bleed Verified 09/19/18 17:48 NSAIDS (Non-Steroidal AdvReac GI bleed Verified 09/19/18 17:48 Anti-Inflamma Review of Systems ROS Statement: Except As Marked, All Systems Reviewed And Found Negative ENT: Negative for: Mouth Pain Skin: Negative for: Other (head injury) Neurological: Positive for: Seizures Physical Exam - Reviewed Nursing Documentation Reviewed: Yes Vital Signs Reviewed: Yes - Physical Exam Appears: Positive for: No Acute Distress Head Exam: Positive for: ATRAUMATIC (No signs of gross trauma), NORMAL INSPECTION, NORMOCEPHALIC Skin: Positive for: Normal Color, Warm, Dry Eye Exam: Positive for: Normal appearance, EOMI, PERRL ENT: Positive for: Normal ENT Inspection Neck: Positive for: Normal, Painless ROM, Supple Cardiovascular/Chest: Positive for: Regular Rate, Rhythm. Negative for: Murmur Respiratory: Positive for: Normal Breath Sounds. Negative for: Respiratory Distress Gastrointestinal/Abdominal: Positive for: Normal Exam, Soft. Negative for: Tenderness Back: Positive for: Normal Inspection. Negative for: L CVA Tenderness, R CVA Tenderness, Vertebral Tenderness Extremity: Positive for: Normal ROM (upper and lower extremities). Negative for: Tenderness, Deformity Neurological/Psych: Positive for: Awake, Alert, Normal Tone, Oriented (x3), Gait (steady). Negative for: Lethargic, Motor/Sensory Deficits, Facial Droop - ECG O2 Sat by Pulse Oximetry: 99 (RA) Pulse Ox Interpretation: Normal Medical Decision Making Medical Decision Making: Time: 07:32 Initial Impression: seizure, alcohol intoxication Initial Plan: --Alcohol serum --Accucheck --Reevaluation 08:50 Upon provider reevaluation patient is feeling better, is medically stable, and requires no further treatment in the ED at this time. Patient will be discharged home. Counseling was provided and all questions were answered regarding diagnosis and need for follow up with PMD. There is agreement to discharge plan. Return if symptoms persist or worsen. Scribe Attestation: Documented by Giovany Puri, acting as a scribe Cam Escalante MD Provider Scribe Attestation: All medical record entries made by the Scribe were at my direction and personally dictated by me. I have reviewed the chart and agree that the record accurately reflects my personal performance of the history, physical exam, medical decision making, and the department course for this patient. I have also personally directed, reviewed, and agree with the discharge instructions and disposition. Disposition - Clinical Impression Clinical Impression: Seizure disorder, Alcohol intoxication - Disposition Referrals: [facility] [Outside] [facility] [Outside] Disposition Time: 08:50 Condition: STABLE Instructions: Seizures, Adult (DC), Alcohol Abuse and Alcoholism (DC) Forms: [employer] (Libyan)
[2018-09-22 09:04] VITALS: BP 119/70; PULSE 94; RESP 17
== END 2018-09-22 09:05 | disposition home or self-care (01) ==
LOC: H.ER 07:26
DX: G40.909 Epilepsy, unspecified, not intractable, without status epilepticus (principal); F10.129 Alcohol abuse with intoxication, unspecified; Z86.718 Personal history of other venous thrombosis and embolism; G89.29 Other chronic pain; I10 Essential (primary) hypertension; Z88.6 Allergy status to analgesic agent

== ENCOUNTER 2018-09-22 12:48 | Inpatient (IN) | payer MEDICAID ==
[2018-09-22] MEDS ORDERED: Sodium Chloride 0.9% 1,000 ML IV STA (14:05)
[2018-09-22 14:56] LABS: BASO # 0.1 K/uL (0.0-0.2); EOS # 0.2 K/uL (0.0-0.7); MONO # 0.6 K/uL (0.0-0.8)
[2018-09-22 15:05] LABS: BASO % 1.2 % (0.0-2.0); EOS % 3.4 % (0.0-4.0); LYMPH # 0.7 K/uL (1.0-4.3); LYMPH % 13.2 % (20.0-40.0); MEAN CELL VOLUME 85.7 fl (80.0-94.0); MEAN CORPUSCULAR HEMOGLOBIN 26.3 pg (27.0-31.0); MEAN CORPUSCULAR HGB CONC 30.7 g/dL (33.0-37.0); MEAN PLATELET VOLUME 7.6 fl (7.2-11.7); MONO % 11.7 % (0.0-10.0); NEUT # 3.5 K/uL (1.8-7.0); NEUT % 70.5 % (50.0-75.0); NRBC % 0.6 % (0.0-0.0); RBC 2.1 Mil/uL (4.40-5.90); RED CELL DISTRIBUTION WIDTH 18.9 % (11.5-14.5); WHITE BLOOD COUNT 4.9 K/uL (4.8-10.8)
[2018-09-22 15:12] LABS: HEMOGLOBIN 5.5 g/dL (12.0-18.0)
[2018-09-22 15:21] LABS: ALB/GLOB RATIO 0.8 (1.0-2.1); ALBUMIN 2.7 g/dL (3.5-5.0); ALT/SGPT 45 U/L (21-72); AST/SGOT 73 U/L (17-59); BLOOD UREA NITROGEN 42 mg/dl (9-20); CALCIUM 7.7 mg/dL (8.4-10.2); GFR NON-AFRICAN AMERICAN > 60
[2018-09-22] MEDS ORDERED: Pantoprazole 40 MG in Sodium Chloride 0.9% 100 ML IVPB SCH (15:45)
--- NOTE | 2018-09-22 15:52 | ED PDOC ---
HPI: Abdomen Time Seen by Provider: 09/22/18 13:39 Chief Complaint (Nursing): GI Problem Chief Complaint (Provider): Abdominal pain and bloody vomiting History Per: Patient History/Exam Limitations: no limitations Onset/Duration Of Symptoms: Hrs Current Symptoms Are (Timing): Still Present Associated Symptoms: Vomiting. denies: Fever, Chills, Nausea, Diarrhea Additional Complaint(s): Shreyas Sepulveda is a 53 year old male, with a past medical history of seizures, gastritis and HTN, who presents to the emergency department with new onset of vomiting. Patient was recently evaluated in the ED for seizure and discharged. Patient states shortly after leaving the ED he began vomiting blood and has now developed abdominal pain. Patient reports feeling weak but has not vomited within the last hour. Patient is a well known alcoholic with previous GI bleeds and poor compliance with medication. He denies any fever, chills, nausea or other medical complaints. PMD: None provided Past Medical History Reviewed: Historical Data, Nursing Documentation, Vital Signs Vital Signs: Last Vital Signs Temp 98.3 F 09/22/18 12:52 Pulse 105 H 09/22/18 12:52 Resp 16 09/22/18 12:52 BP 133/65 09/22/18 12:52 Pulse Ox 99 09/22/18 12:52 - Medical History PMH: Anemia, Anxiety, Back Problems (herniated disc), Deep Vein Thrombosis, Gastritis, Gall Bladder Disease (Cholelithiasis), HTN, Pancreatitis, Pneumonia, Seizures, Chronic Pain (left shoulder) Denies: CHF, Fractures, HIV, Hypercholesterolemia, Chronic Kidney Disease, Sexually Transmitted Disease - Surgical History Surgical History: Endoscopy - Family History Family History: States: Unknown Family Hx - Social History Alcohol: > 2 Drinks/Day Drugs: Denies - Immunization History Hx Tetanus Toxoid Vaccination: Yes Hx Influenza Vaccination: Yes Hx Pneumococcal Vaccination: Yes - Home Medications Home Medications: Ambulatory Orders Medication Instructions Recorded Levetiracetam [Keppra] 500 mg PO Q12 06/01/18 Acetaminophen [8 Hour Pain Relief] 650 mg PO Q8 PRN #20 tablet.er 09/19/18 - Allergies Allergies/Adverse Reactions: Allergies Allergy/AdvReac Type Severity Reaction Status Date / Time aspirin AdvReac GI Bleed Verified 09/22/18 12:52 naproxen AdvReac GI bleed Verified 09/22/18 12:52 NSAIDS (Non-Steroidal AdvReac GI bleed Verified 09/22/18 12:52 Anti-Inflamma Review of Systems ROS Statement: Except As Marked, All Systems Reviewed And Found Negative Constitutional: Positive for: Weakness (generalized). Negative for: Fever, Chills Gastrointestinal: Positive for: Abdominal Pain, Hematemesis. Negative for: Nausea Physical Exam - Reviewed Nursing Documentation Reviewed: Yes Vital Signs Reviewed: Yes - Physical Exam Appears: Positive for: No Acute Distress Head Exam: Positive for: ATRAUMATIC, NORMAL INSPECTION, NORMOCEPHALIC Skin: Positive for: Warm, Dry, Pallor Eye Exam: Positive for: Normal appearance, EOMI, PERRL ENT: Positive for: Other (mucous membranes dry) Neck: Positive for: Normal, Painless ROM Cardiovascular/Chest: Positive for: Regular Rate, Rhythm. Negative for: Murmur Respiratory: Positive for: Normal Breath Sounds. Negative for: Respiratory Distress Gastrointestinal/Abdominal: Positive for: Tenderness (diffused). Negative for: Guarding, Rebound Back: Positive for: Normal Inspection. Negative for: L CVA Tenderness, R CVA Tenderness, Vertebral Tenderness Extremity: Positive for: Normal ROM (upper and lower extremities). Negative for: Deformity, Swelling Neurological/Psych: Positive for: Awake, Alert, Normal Tone, Oriented (x3). Negative for: Motor/Sensory Deficits - Laboratory Results Result Diagrams: 09/25/18 07:40 09/25/18 04:30 Lab Results: Total Bilirubin 0.7 mg/dl (0.2-1.3) 09/22/18 14:05 AST 73 U/L (17-59) H 09/22/18 14:05 ALT 45 U/L (21-72) 09/22/18 14:05 Alkaline Phosphatase 85 U/L (38-126) 09/22/18 14:05 Total Protein 6.2 G/DL (6.3-8.2) L 09/22/18 14:05 Albumin 2.7 g/dL (3.5-5.0) L 09/22/18 14:05 Globulin 3.5 gm/dL (2.2-3.9) 09/22/18 14:05 Albumin/Globulin Ratio 0.8 (1.0-2.1) L 04/04/19 14:05 - ECG O2 Sat by Pulse Oximetry: 99 (RA) Pulse Ox Interpretation: Normal Medical Decision Making Medical Decision Making: Time: 13:39 Initial impression: Upper GI bleed/hematemesis. Labs including type and screen, IV fluids, Zofran, Protonix and reassess patient Initial Plan: --PRBC --Type and screen --Alcohol serum --CMP --GI consult --CBC w/ differential --NaCl 1,000 ml IV 1,000 mls/hr --Protonix Inj 40 NaCl 0.9% 100 ml IVPB --Pepcid 40mg IVP --Zofran Inj 4 mg IVP --Admit to hospital --Influenza A B --Urinalysis --Reevaluation Scribe Attestation: Documented by Giovany Puri, acting as a scribe Joe España MD Provider Scribe Attestation: All medical record entries made by the Scribe were at my direction and pers onally dictated by me. I have reviewed the chart and agree that the record accurately reflects my personal performance of the history, physical exam, medical decision making, and the department course for this patient. I have also personally directed, reviewed, and agree with the discharge instructions and disposition. Disposition - Clinical Impression Clinical Impression: Hematemesis, Anemia - Disposition Disposition Time: 15:13 Condition: GUARDED
[2018-09-22] MEDS ORDERED: Permethrin 1% Kit 59 ML BOTTLE TOP ONE (16:17)
[2018-09-22] MEDS: levETIRAcetam 500 MG in Sodium Chloride 0.9% 100 ML IVPB SCH (23:45)
[2018-09-23] MEDS: Pantoprazole 40 MG in Sodium Chloride 0.9% 100 ML IVPB SCH ×5 (00:06→23:09)
[2018-09-23] MEDS: Dextrose 5%/0.9% NS 1,000 ML IV SCH ×2 (01:03→11:11)
--- NOTE | 2018-09-23 01:05 | HP ---
HISTORY OF PRESENT ILLNESS: The patient is a 53-year-old male with history of seizure disorder and previous admission for GI bleeding, presented to emergency room for vomiting blood twice on the day of admission. The patient was evaluated in the emergency room and he was found to have hemoglobin of 5.5 and hematocrit of 18. The patient was feeling dizzy and tachycardic blood pressure, heart rate was 105, temperature 98.3, blood pressure was 133/65, and respiratory rate 16. The patient denied ingestion of any alcohol for the last four months and he has not used any nonsteroidal anti-inflammatory medications or aspirin. Other review of systems is negative. ALLERGIES: NO KNOWN ALLERGY. POSITIVE FOR ASPIRIN AND NONSTEROIDAL ANTI-INFLAMMATORY DRUGS. MEDICATIONS: The patient is on Keppra 500 mg twice a day. PAST MEDICAL HISTORY: As above. SOCIAL HISTORY: Ex-EtOH abuse. The last time he ingested alcohol was four months ago. FAMILY HISTORY: Noncontributory. PHYSICAL EXAMINATION: GENERAL: The patient is in bed, not in any cardiopulmonary distress at the time of this examination. VITAL SIGNS: Blood pressure 133/65, temperature 98.5, respiratory rate 16, and pulse 105. HEENT: Pupils equal, reactive to light. Pale conjunctivae. Normal-appearing mucosa of oropharynx and nasal membrane mucosa. NECK: Supple. No JVD. No carotid bruit. No lymph node. No thyromegaly. CHEST AND LUNGS: Bilateral symmetrical expansion. Good air exchange. No rales, no rhonchi. CARDIOVASCULAR SYSTEM: PMI not localized. S1, S2. No additional sounds. ABDOMEN: Normoactive bowel sounds. No tenderness. No organomegaly. No masses. EXTREMITIES: No cyanosis, no clubbing, no edema. CENTRAL NERVOUS SYSTEM: Alert, awake, oriented x2. No neurological deficit could be appreciated. ASSESSMENT: Upper gastrointestinal bleeding, symptomatic severe anemia, seizure disorder. PLAN: We will resume the patient's medications of seizure and the patient transfused 2 units of packed RBCs. Iron studies, GI consult, and follow recommendations. Start the patient on Protonix drip and admit the patient to telemetry. Dm Nicholson MD [facility] # [id number]
--- NOTE | 2018-09-23 05:10 | CP.PCM.CON ---
History of Present Illness - History of Present Illness History of Present Illness: Attending: Dm Nicholson MD Reason for Consult: Critical care management Chief complaint: Cardiac Arrest/ GI bleed HPI: The hx was obtained from the Radiological, laboratory and the medical records. This is a 53 years old male with hx of liver cirrhosis with TIPS procerdure done, multiple episodes of GI bleed with EGD showing no Esophageal Varices but Gastric varices present. He was admitted on 09/22/18 with hematemesis and abdominal pain with a Hemoglobin of 5.5. He was receiving the first unit of Blood transfusion when he was found unresponsive, Coded and transferred to the ICU. CODE NOTE The Blood transfusion was stopped Code was called and full ACLS protocol was instituted with chest compressions and positive pressure ventilation with bag valve mask. The patient was in Asystole and Epinephrine was administered according to protocol ROSC was obtained and the patient was intubated and transferred to the ICU He was placed on the mechanical ventilator but later found to be desaturating with heart rate and blood pressure falling. ET tube was found to be in the esophagus and the patient was reintubated by this hospitalist. IV Normal saline was being given. The patient placed on the Mechanical ventilator Decision Made to Premedicate the patient with Benadryl and Solumedrol prior to starting a new bag of PRBC Post intubation PCXR and ABG ordered. PMH: Anemia, Back Problems (herniated disc), Deep Vein Thrombosis, Fractures (rib fx, left shoulder, Left hand 5th digit, Humerus fracture), Gastritis, Pancreatitis, Seizures, Chronic Pain (left shoulder)Cholelithiasis; GI Bleed; Alcoholic Liver Disease; Gastric, Varices in the past, No Esophagus Varices in recent EGD PSH: TIPS Procedure 2014; multiple EGD SH: No illegal drug use; Alcohol Abuse; Light Cigarette Smoker; live with [facility]; unemployed FH: father with NE; Mother with Breast Ca Allergies: ASA; NSAID Medication: Reviewed - Medical History PMH: Anemia, Anxiety, Back Problems (herniated disc), Deep Vein Thrombosis, Gastritis, Gall Bladder Disease (Cholelithiasis), HTN, Pancreatitis, Pneumonia, Seizures, Chronic Pain (left shoulder) Denies: CHF, Fractures, HIV, Hypercholesterolemia, Chronic Kidney Disease, Sexually Transmitted Disease - Surgical History Surgical History: Endoscopy - Family History Family History: States: Unknown Family Hx - Social History Alcohol: > 2 Drinks/Day Drugs: Denies Review of Systems - Review of Systems Review of Systems: Review of Systems limited because of patient,s unresponsiveness Past Patient History - Infectious Disease Hx of Infectious Diseases: None - Tetanus Immunizations Tetanus Immunization: Up to Date - Past Medical History & Family History Past Medical History?: Yes - Past Social History Smoking Status: Light Smoker < 10 Cigarettes Daily Chewing Tobacco Use: No Cigar Use: No Alcohol: > 2 Drinks/Day Drugs: Denies - CARDIAC Hx Congestive Heart Failure: No Hx Hypercholesterolemia: No Hx Hypertension: Yes - PULMONARY Hx Pneumonia: Yes - NEUROLOGICAL Hx Seizures: Yes - HEENT Hx HEENT Problems: No - RENAL Hx Chronic Kidney Disease: No - ENDOCRINE/METABOLIC Hx Endocrine Disorders: No - HEMATOLOGICAL/ONCOLOGICAL Hx Anemia: Yes Hx Human Immunodeficiency Virus (HIV): No - INTEGUMENTARY Hx Dermatological Problems: No - MUSCULOSKELETAL/RHEUMATOLOGICAL Hx Fractures: No - GASTROINTESTINAL Hx Gall Bladder Disease: Yes (Cholelithiasis) Hx Gastritis: Yes Hx Pancreatitis: Yes - GENITOURINARY/GYNECOLOGICAL Hx Sexually Transmitted Disorders: No - PSYCHIATRIC Hx Anxiety: Yes - SURGICAL HISTORY Other/Comment: left pinky - ANESTHESIA Hx Anesthesia: Yes Hx Anesthesia Reactions: No Hx Malignant Hyperthermia: No Meds Allergies/Adverse Reactions: Allergies Allergy/AdvReac Type Severity Reaction Status Date / Time aspirin AdvReac GI Bleed Verified 09/22/18 12:52 naproxen AdvReac GI bleed Verified 09/22/18 12:52 NSAIDS (Non-Steroidal AdvReac GI bleed Verified 09/22/18 12:52 Anti-Inflamma - Medications Medications: Current Medications Acetaminophen (Tylenol 325mg Tab) 650 mg PO Q8 PRN PRN Reason: Pain, moderate (4-7) Pantoprazole Sodium 40 mg/ (Sodium Chloride) 100 mls @ 20 mls/hr IVPB Q5H [facility] Last Admin: 09/23/18 00:06 Dose: 20 mls/hr Dextrose/Sodium Chloride (Dextrose 5%/0.9% Ns 1000 Ml) 1,000 mls @ 100 mls/hr IV .Q10H [facility] Stop: 09/23/18 23:33 Last Admin: 09/23/18 01:03 Dose: Not Given Levetiracetam 500 mg/ Sodium (Chloride) 105 mls @ 210 mls/hr IVPB Q12 [facility] Last Admin: 09/22/18 23:45 Dose: 210 mls/hr Lorazepam (Ativan) 1 mg IVP Q4 PRN PRN Reason: Agitation Physical Exam - Constitutional Additional comments: Post Code and intubated. - Head Exam Head Exam: ATRAUMATIC, NORMAL INSPECTION, NORMOCEPHALIC - Eye Exam Additional comments: Pupils reacting sluggish to light At this time the patient is opening the eyes spontaneously. - ENT Exam ENT Exam: Mucous Membranes Moist, Normal External Ear Exam, Normal Oropharynx - Neck Exam Additional comments: Poor response to painful stimuli - Respiratory Exam Respiratory Exam: Clear to Auscultation Bilateral. absent: Rales, Rhonchi, Wheezes - Cardiovascular Exam Cardiovascular Exam: REGULAR RHYTHM, RRR, +S1, +S2 - GI/Abdominal Exam GI & Abdominal Exam: Hypoactive Bowel Sounds, Soft. absent: Mass - Rectal Exam Rectal Exam: Deferred - Extremities Exam Extremities exam: Positive for: normal inspection - Back Exam Back exam: NORMAL INSPECTION - Neurological Exam Additional comments: Intubated, Opening the eyes to loud speech no facial droop. Motor strength 0/5 in all extremities - Psychiatric Exam Additional comments: Unresponsive - Skin Skin Exam: Dry, Intact, Warm Results - Vital Signs Recent Vital Signs: Last Vital Signs Temp 98.4 F 09/23/18 02:36 Pulse 130 H 09/23/18 02:36 Resp 20 09/23/18 02:36 BP 155/78 H 09/23/18 02:36 Pulse Ox 100 09/23/18 00:12 - Labs Result Diagrams: 09/23/18 05:10 09/22/18 14:05 Labs: Laboratory Results - last 24 hr 09/22/18 09/22/18 09/22/18 14:05 14:05 14:05 WBC 4.9 RBC 2.10 L Hgb 5.5 L* D Hct 18.0 L MCV 85.7 D MCH 26.3 L MCHC 30.7 L RDW 18.9 H Plt Count 115 L D MPV 7.6 Neut % (Auto) 70.5 Lymph % (Auto) 13.2 L [place] % (Auto) 11.7 H Eos % (Auto) 3.4 Baso % (Auto) 1.2 Neut # (Auto) 3.5 Lymph # (Auto) 0.7 L [place] # (Auto) 0.6 Eos # (Auto) 0.2 Baso # (Auto) 0.1 Sodium 142 Potassium 4.4 Chloride 114 H Carbon Dioxide 21 L Anion Gap 11 BUN 42 H Creatinine 0.8 Est GFR ( Amer) > 60 Est GFR (Non-Af Amer) > 60 Random Glucose 91 Calcium 7.7 L Total Bilirubin 0.7 AST 73 H ALT 45 Alkaline Phosphatase 85 Total Protein 6.2 L Albumin 2.7 L Globulin 3.5 Albumin/Globulin Ratio 0.8 L Alcohol, Quantitative < 10 Influenza Typ A,B (EIA) Negative for flu a/b Blood Type Antibody Screen Crossmatch BBK History Checked 09/22/18 14:05 WBC RBC Hgb Hct MCV MCH MCHC RDW Plt Count MPV Neut % (Auto) Lymph % (Auto) [place] % (Auto) Eos % (Auto) Baso % (Auto) Neut # (Auto) Lymph # (Auto) [place] # (Auto) Eos # (Auto) Baso # (Auto) Sodium Potassium Chloride Carbon Dioxide Anion Gap BUN Creatinine Est GFR ( Amer) Est GFR (Non-Af Amer) Random Glucose Calcium Total Bilirubin AST ALT Alkaline Phosphatase Total Protein Albumin Globulin Albumin/Globulin Ratio Alcohol, Quantitative Influenza Typ A,B (EIA) Blood Type O POSITIVE Antibody Screen Negative Crossmatch See Detail BBK History Checked Patient has bt - Imaging and Cardiology Chest x-ray Status: Image reviewed by me Additional comment: ET Tube above maranda NG Tube with tip0 towards the stomach Right basal infiltrate Assessment & Plan - Assessment and Plan (Free Text) Plan: 53 years old male with liver cirrhosis and TIPs Procedure comes again with Hematemesis with a Hemoglobin of 5.5g/dl #. Cardiopulmonary Arrest. Patient coded with ROSC and transferred to ICU, Intubated. No Hypothermic Protocol at this time because fo continuous bleeding and seizure like activity. Continue Cardiac monitoring, blood pressure monitoring, IV Fluids with vasopressors if necessary. #. Upper GI bleed - Consult Digital Content Producer - Blood Transfusion. The last bag of blood was discontinues half full as the patient was found in cardiac arrest while receiving the blood. Transfusion reaction protocol was instituted. The patient was premedicated with Benadryl and Solu-Medrol prior to begining the second bag of PRBC. - follow H&H #. Anemia due to blood loss - H&H - Patient will need another 2 units of PRBC after FFP is transfused. transfuse platelets as soon as possible #. Right basal infiltrate of lung, Probably pneumonia - Treat with Zosyn and Azithromycin #. Seizure - matt Cummins - Date & Time Date: 09/23/18 Time: 05:10
--- NOTE | 2018-09-23 05:13 | PCM.PROC ---
Procedures Attestation:: I certify that I have explained the specified Operation(s) or Procedure(s), risks, benefits and reasonable alternatives to the Patient and/or other person responsible. The opportunity was given to ask questions and all questions answered - Intubation Time Out Performed: Yes Laryngoscope: Kalpana ET Tube Size: 8.0 ET Tube Uncuffed: No ET Tube Secured Locarion: Lips ET Tube Placement Confirmation: Visualized Passing Through Cords, Breath Sounds Equal Bilaterally, No Breath Sounds Over Epigastrum, Confirmation w/Capnometry Patient Tolerated Procedure: No Complications Procedure Immediate Complications: None Additional comments: First intubation was unsuccessful as the tube was in the esophagus and the patient had to be reintubated with the tube now correct in the trachea.
[2018-09-23] MEDS ORDERED: DiphenhydrAMINE 50 mg/ml Inj IVP STA (05:19)
[2018-09-23 05:30] LABS: BASO # 0.2 K/uL (0.0-0.2); BASO % 1.1 % (0.0-2.0); EOS # 0.7 K/uL (0.0-0.7); EOS % 3.8 % (0.0-4.0); LYMPH # 3.8 K/uL (1.0-4.3); LYMPH % 21.2 % (20.0-40.0); MEAN CORPUSCULAR HEMOGLOBIN 26.2 pg (27.0-31.0); MEAN CORPUSCULAR HGB CONC 28.3 g/dL (33.0-37.0); MEAN PLATELET VOLUME 7.7 fl (7.2-11.7); MONO # 1.5 K/uL (0.0-0.8); MONO % 8.3 % (0.0-10.0); NEUT # 11.7 K/uL (1.8-7.0); NEUT % 65.6 % (50.0-75.0); NRBC % 1.5 % (0.0-0.0); RBC 1.91 Mil/uL (4.40-5.90); RED CELL DISTRIBUTION WIDTH 18.5 % (11.5-14.5)
[2018-09-23 05:39] LABS: MEAN CELL VOLUME 92.6 fl (80.0-94.0); WHITE BLOOD COUNT 17.8 K/uL (4.8-10.8)
[2018-09-23 06:19] LABS: ABG ALLEN TEST YES; ARTERIAL BLOOD GAS HCO3 12.8 mmol/L (21-28); ARTERIAL BLOOD GAS O2 SAT 99.9 % (95-98); ARTERIAL BLOOD GAS PCO2 42 mm/Hg (35-45); ARTERIAL BLOOD GAS PH 7.11 (7.35-7.45); ARTERIAL BLOOD GAS PO2 442 mm/Hg (80-100); ARTERIAL BLOOD GAS TCO2 14.6 mmol/L (22-28)
[2018-09-23] MEDS ORDERED: Sodium Bicarbonate (8.4%) 50 Meq Syringe IVP ONE (06:34)
[2018-09-23] MEDS ORDERED: Sodium Bicarbonate 7.5% (0.9 MEQ/ML) 50ML INJ IV ONE ×2 (06:35→22:27)
--- NOTE | 2018-09-23 06:39 | CP.PCM.PN ---
Subjective - Date & Time of Evaluation Date of Evaluation: 09/23/18 Time of Evaluation: 06:38 - Subjective Subjective: CODE NOTE The Blood transfusion was stopped Code was called and full ACLS protocol was instituted with chest compressions and positive pressure ventilation with bag valve mask. The patient was in Asystole and Epinephrine was administered according to protocol ROSC was obtained and the patient was intubated and transferred to the ICU He was placed on the mechanical ventilator but later found to be desaturating with heart rate and blood pressure falling. ET tube was found to be in the esophagus and the patient was reintubated by this hospitalist. IV Normal saline was being given. The patient placed on the Mechanical ventilator Decision Made to Premedicate the patient with Benadryl and Solumedrol prior to starting a new bag of PRBC Post intubation PCXR and ABG ordered. Objective - Vital Signs/Intake and Output Vital Signs (last 24 hours): Temp Pulse Resp BP Pulse Ox 97.3 F L 112 H 24 166/70 H 100 09/23/18 06:22 09/23/18 06:22 09/23/18 06:22 09/23/18 06:22 09/23/18 06:01 Intake and Output: 09/22/18 09/23/18 18:59 06:59 Intake Total 0 Balance 0 - Medications Medications: Current Medications Acetaminophen (Tylenol 325mg Tab) 650 mg PO Q8 PRN PRN Reason: Pain, moderate (4-7) Pantoprazole Sodium 40 mg/ (Sodium Chloride) 100 mls @ 20 mls/hr IVPB Q5H [facility] Last Admin: 09/23/18 00:06 Dose: 20 mls/hr Dextrose/Sodium Chloride (Dextrose 5%/0.9% Ns 1000 Ml) 1,000 mls @ 100 mls/hr IV .Q10H [facility] Stop: 09/23/18 23:33 Last Admin: 09/23/18 01:03 Dose: Not Given Levetiracetam 500 mg/ Sodium (Chloride) 105 mls @ 210 mls/hr IVPB Q12 [facility] Last Admin: 09/22/18 23:45 Dose: 210 mls/hr Lorazepam (Ativan) 1 mg IVP Q4 PRN PRN Reason: Agitation Last Admin: 09/23/18 06:28 Dose: 1 mg - Labs Labs: 09/23/18 05:10 09/22/18 14:05
--- NOTE | 2018-09-23 07:45 | CP.CCUPN ---
CCU Subjective - Physician Review Subjective (Free Text): 53M well known to ICU for multiple past admissions for Hepatic Encephalopathy / Alcoholic cirrhosis, chronic alcoholism, seizure disorder, UGI bleed 2 variceal disease, h/o TIPS, h/o severe anemia 2 GI bleeds, admitted again due to severe anemia, vomiting and abdominal pain. During infusion of 1st unit of PRBCs, note to have bilat orbital and lip swelling, then found to be unresponsive, and pulseless FREELANCE OPERATOR called, subsequently underwent cardiac resuscitation with ROSC, lost pulse again during transport to ICU and underwent 2nd course of resuscitation, successful ROSC achieved, orally intubated. Given IV Diphenhydramine and Solumedrol bolus for possible transfusion reaction to 1 unit PRBC. 2nd unit PRBC infusing now, with now overt sequelae. Unresponsive to verbal commands, but opens eyes spontaneously, not interactive nor following any commands, and bilat jaw and facial twitching noted after 2nd resuscitation (was given Ativan 1 mg for this), and remains with intermittent twitching noted over left lateral face and temporal area. Tachycardic to 122 in sinus, SBP 160s SPO2 100% on 60% oxygen, breathing 28 on AC 22. Relatively hypothermic on arrival to ICU with T 96F. Nurses report he was cleared of Lice skin infection prior to leaving ER. No urine output yet, but no barrientos in place. Allergies: ASA, NSAIDs Home Meds: Keppra, Acetaminophen ROS: No other pertinent negs or positive on 10+ system review obtainable due to obtunded status Other PMSFH: All other Nursing and physician documentation reviewed to date; no new pertinent info noted relevant to current medical problems. EXAM- HEENT: no icterus, pupils unequal, 3 mm on L- reactive, 4 mm on R non-reactive, no gaze preference, opens eyes briefly to pain, but no sustained wakeful state. No nystagmus, fundi not visualized. NECK: no visible JVD, supple, carotids equal upstroke bilat/no bruits CHEST: decreased BS bases, no wheezes audible HEART: regular, distant, tachy S1S2, no murmur audible, no rubs. ABD: soft, no distention, no focal tenderness/ guarding, BS hypoactive EXT: trace edema UEs and LEs, no calf tenderness or palpable cords, distal pulses intact and symmetrical NEURO: flaccid x 4 limbs SKIN: no rashes, warm and dry LABS: WBC= 17.8 HGB= 5.0 PLTs = 224K 7.11/42/442 on 100% oxygen Na= 142 K= 4.4 Cl= 114 HCO3= 21 BUN/Cr= 42/0.8 BS= 91 Lactate = 6.1 CXR: (my interp)- ETT at approx. 9.5 cm above maranda, RLL / RML infiltrate, stomach distended with air, no free air seen. IMPRESSION / MAJOR PROBLEMS NOW: 1. s/p PEA/ Cardiac Arrest 2. Acute Resp Failure, r/o Aspiration Pneumonia / Pneumonitis 3. PostResuscitation Anoxic Encephalopathy with Myoclonic twitching, r/o other PROGRAM PARAPROFESSIONAL pathology 4. Severe acute anemia on chronic disease Anemia, r/o GI blood loss 5. h/o Seizure Disorder 6. h/o Chronic Alcoholism with Alcoholic Liver Disease PLAN: 1. Now spontaneously opening eyes approx. 2 hours post resuscitation, not a candidate for TTM. 2. CT Head. Bolus Keppra, resume orders noted. Neurochecks, Seizure precautions, HOB elevation. 3. Obtain coag testing, EKG: none seen on admission. 4. Follow serial repeat Lactate, CPK levels. Check Trops. Get ECHO. Check Serum Ammonia. 5. Hold further bicarbonate unless pH below 7.00. 6. IV PPi already started. Consider Octreotide infusion. GI eval. 7. Alarcon-culture. Consider empiric abx coverage. 8. Re-position ETT lower by approx 4 cm. Check repeat CXR. 9. No Advance Directives noted. 09/23/18 07:45
[2018-09-23] MEDS ORDERED: levETIRAcetam 1,000 MG in Sodium Chloride 0.9% 100 ML IVPB ONE (08:52)
[2018-09-23] MEDS ORDERED: Azithromycin 500 MG in Sodium Chloride 0.9% 250 ML IVPB SCH (09:00)
--- NOTE | 2018-09-23 09:41 | PCM.PROC ---
<Sultan Abhinav - Last Filed: 09/23/18 09:59> Procedures Attestation:: I certify that I have explained the specified Operation(s) or Procedure(s), risks, benefits and reasonable alternatives to the Patient and/or other person responsible. The opportunity was given to ask questions and all questions answered - Central Line Placement Right Femoral Triple Lumen Catheter Aseptic technique was employed throughout the procedure: Full sterile barriers (mask, hair cover, sterile gown, sterile gloves), Full body sterile drape, Chloraprep Antiseptic: 2 minute prep for Femoral Pt. Placed on Pulse Ox Monitor: Yes Central Line Prep: Chlorhexidine-Alcohol Combination Ultrasound Used for Placement: No Central Line Lumen Inserted: triple Central Line Length: 20 cm Post Procedure: Sutured in Place, Good Blood Return, All Ports Aspirated, Flushed, Capped, Sterile Dressing Applied Secured by: Suture Post procedure dressing: Chlorhexidine disc (Biopatch) Post Procedure X-Ray: No Patient Tolerated Procedure: Well Immediate Complications: Hematoma at Puncture Site (small) Additional Comments: Femoral line chosen because of unknown coagulopathy. There was no coag profile ordered during this admission. Patient was intubated and sedated earlier in the morning. <Anders Correia - Last Filed: 09/23/18 18:29> Procedures Attestation:: I certify that I have explained the specified Operation(s) or Procedure(s), risks, benefits and reasonable alternatives to the Patient and/or other person responsible. The opportunity was given to ask questions and all questions answered - Central Line Placement Right Femoral Triple Lumen Catheter Additional Comments: Emergent ICU procedure supervised in its entirety by me at the bedside as performed by Dr. Tom La.
[2018-09-23] MEDS ORDERED: Piperacillin/Tazobact 3.375 GM in Sodium Chloride 0.9% 100 ML IVPB SCH (10:00)
[2018-09-23] MEDS ORDERED: Octreotide 500 mcg/ml Inj IV STA (10:25)
[2018-09-23] MEDS: levETIRAcetam 500 MG in Sodium Chloride 0.9% 100 ML IVPB SCH (10:25)
[2018-09-23 10:38] LABS: BASO # 0.2 K/uL (0.0-0.2); BASO % 0.6 % (0.0-2.0); EOS # 0.1 K/uL (0.0-0.7); EOS % 0.1 % (0.0-4.0); HEMOGLOBIN 6.8 g/dL (12.0-18.0); LYMPH # 0.5 K/uL (1.0-4.3); LYMPH % 1.2 % (20.0-40.0); MEAN CELL VOLUME 87.5 fl (80.0-94.0); MEAN CORPUSCULAR HEMOGLOBIN 26.2 pg (27.0-31.0); MEAN PLATELET VOLUME 7.5 fl (7.2-11.7); MONO # 1.5 K/uL (0.0-0.8); MONO % 3.8 % (0.0-10.0); NEUT # 36.7 K/uL (1.8-7.0); NEUT % 94.3 % (50.0-75.0); NRBC % 0.4 % (0.0-0.0); PLATELET COUNT 219 K/uL (130-400); RBC 2.58 Mil/uL (4.40-5.90); RED CELL DISTRIBUTION WIDTH 17.3 % (11.5-14.5)
[2018-09-23 10:45] LABS: INR 1.9; PROTHROMBIN TIME 21.2 Seconds (9.8-13.1)
[2018-09-23] MEDS ORDERED: SODIUM CHLORIDE 0.9% IV ONE (10:45)
[2018-09-23] MEDS ORDERED: OCTREOTIDE IV ONE (10:45)
--- NOTE | 2018-09-23 10:47 | RAD ---
Date of service: 09/23/2018 HISTORY: post intubation COMPARISON: Comparison chest 06/29/2018. TECHNIQUE: 1 view obtained. FINDINGS: In situ ETT, the tip of which lies approximately nearly 9 cm above maranda. NGT is present, the tip of which appears to be located in good position, left upper quadrant of the abdomen LUNGS: Patchy opacity seen in the right lower lung field likely representing atelectasis and/or infiltrate. Suspect small effusion PLEURA: As above. No pneumothorax apparent. CARDIOVASCULAR: Mild aortic atherosclerotic calcification less well seen on this exam compared to prior chest radiograph. Normal cardiac size. No pulmonary vascular congestion. OSSEOUS STRUCTURES: No significant abnormalities. VISUALIZED UPPER ABDOMEN: Normal. OTHER FINDINGS: None. IMPRESSION: ETT and NGT as above. Patchy atelectasis and or infiltrate changes and suspected small effusion right lower lung field.
[2018-09-23 11:14] LABS: TROPONIN I 0.202 ng/mL (0.00-0.120)
[2018-09-23 11:27] LABS: ANISOCYTOSIS MODERATE; BANDS 12 % (0-2); HYPOCHROMIC MODERATE; LYMPHOCYTE 1 % (20-50); MONOCYTE 3 % (0-10); NEUTROPHIL 83 % (42-75); PLATELET ESTIMATE NORMAL (NORMAL); POIKILOCYTOSIS MODERATE; REACTIVE LYMPHOCYTES 1 % (0-0); TOTAL CELLS COUNTED 100
[2018-09-23 11:28] LABS: POLYCHROMIC SLIGHT
[2018-09-23] MEDS ORDERED: Sodium Chloride 0.9% 1,000 ML IV SCH (11:45)
--- NOTE | 2018-09-23 13:28 | CT ---
Date of service: 09/23/2018 PROCEDURE: CT HEAD WITHOUT CONTRAST. HISTORY: code s/p ROSC COMPARISON: None available. TECHNIQUE: Axial computed tomography images were obtained through the head/brain without intravenous contrast. Radiation dose: Total exam DLP = 1242.85 mGy-cm. This CT exam was performed using one or more of the following dose reduction techniques: Automated exposure control, adjustment of the mA and/or kV according to patient size, and/or use of iterative reconstruction technique. FINDINGS: HEMORRHAGE: No intracranial hemorrhage. BRAIN: There is diffuse cortical edema appreciated in the interval and is particularly prominent at the bilateral basal ganglia in a pattern most compatible with anoxic cephalopathy. Basilar cisterns are diminishing though still patent. No brainstem compression identified at this time. Overall ventricular volume appears slightly diminished in the interval as well, particularly the bilateral lateral ventricles. No hydrocephalus. Midline brain anatomy is unremarkable grossly. CALVARIUM: Unremarkable. PARANASAL SINUSES: Multifocal sinusitis affecting primarily the bilateral maxillary sinuses but also mildly the bilateral ethmoid and minimally affecting the sphenoid sinuses symmetrically. A segment of a likely endotracheal tube is seen within the oral cavity. MASTOID AIR CELLS: Unremarkable as visualized. No inflammatory changes. OTHER FINDINGS: None. IMPRESSION: Overall pattern highly suggestive of anoxic encephalopathy in proper clinical setting. No intracranial hemorrhage. Basilar cisterns are marginally diminished no ney impression the brainstem appreciated at this time however. Continued clinical and CT follow-up advised. Findings discussed with Dr. La with written down read back verification 09/23/2018 1:10 p.m..
[2018-09-23 14:10] LABS: ABG ALLEN TEST YES; ARTERIAL BLOOD GAS HCO3 12.2 mmol/L (21-28); ARTERIAL BLOOD GAS HEMOGLOBIN 6.9 g/dL (11.7-17.4); ARTERIAL BLOOD GAS O2 CAPACITY 9.8 mL/dL (16-24); ARTERIAL BLOOD GAS O2 CONTENT 9.8 ML/dL (15-23); ARTERIAL BLOOD GAS O2 SAT 99.7 % (95-98); ARTERIAL BLOOD GAS PCO2 26 mm/Hg (35-45); ARTERIAL BLOOD GAS PO2 176 mm/Hg (80-100)
[2018-09-23] MEDS ORDERED: levETIRAcetam 2,000 MG in Sodium Chloride 0.9% 100 ML IVPB STA (14:49)
[2018-09-23 14:53] LABS: ALB/GLOB RATIO 0.7 (1.0-2.1); ALBUMIN 2.4 g/dL (3.5-5.0); CALCIUM 6.6 mg/dL (8.4-10.2)
[2018-09-23] MEDS: metroNIDAZOLE 500mg/100ml NS 100 ML IVPB SCH (15:02)
[2018-09-23] MEDS: Meropenem 1 GM in Sodium Chloride 0.9% 100 ML IVPB SCH (15:03)
--- NOTE | 2018-09-23 15:19 | CP.PCM.CON ---
History of Present Illness - History of Present Illness History of Present Illness: Infectious Disease Consultation note- asked to see this patient at the request of ICU Doctor for rule out sepsis. HPI- History obtained from the medical chart and the Nematology Teacher as the patient is intubated and sedated. Patient is a 53 year old male with multiple previous hospitalizations. He has h/o ETOH abuse, alcoholic cirrhosis, hepatic encephalopathy, seizure disorder, UGI bleed secondary to variceal disease, h/o TIPS, who came to hospital for evaluation of abd. pain and vomiting and was found to vbe severely anemic and . Apparently during PRBC infusion he was found to have orbital and lip swelling and then became unresponsive , CONSTRUCTION FIELD ENGINEER was called and he underwent cardiac resuscitation and then was intubated and was given solumedrol and benadryl to counteract possible transfusion reaction. as per nurse pt. also has been persistently having jaw twicthing secondary to seizures eventhough he has been given ativan. I'm asked to evaluate because his wbc yadi from normal value to very high number post intubation and blood transfusions and hence to help with antibiotic management. Patient is currently Intubated in ICU and does not follow any commands and has twitching of hi9s jaw . Allergies: ASA, NSAIDs Review of Systems - Review of Systems Review of Systems: ROS- Unable to obtain as pt. is intubated, sedated and not following commands Past Patient History - Infectious Disease Hx of Infectious Diseases: None - Tetanus Immunizations Tetanus Immunization: Up to Date - Past Medical History & Family History Past Medical History?: Yes - Past Social History Smoking Status: Light Smoker < 10 Cigarettes Daily Chewing Tobacco Use: No Cigar Use: No Alcohol: > 2 Drinks/Day Drugs: Denies Home Situation {Lives}: Homeless - CARDIAC Hx Congestive Heart Failure: No Hx Hypercholesterolemia: No Hx Hypertension: Yes - PULMONARY Hx Pneumonia: Yes - NEUROLOGICAL Hx Seizures: Yes - HEENT Hx HEENT Problems: No - RENAL Hx Chronic Kidney Disease: No - ENDOCRINE/METABOLIC Hx Endocrine Disorders: No - HEMATOLOGICAL/ONCOLOGICAL Hx Anemia: Yes - INTEGUMENTARY Hx Dermatological Problems: No - MUSCULOSKELETAL/RHEUMATOLOGICAL Hx Fractures: No - GASTROINTESTINAL Hx Gall Bladder Disease: Yes (Cholelithiasis) Hx Gastritis: Yes Hx Pancreatitis: Yes - GENITOURINARY/GYNECOLOGICAL Hx Sexually Transmitted Disorders: No - PSYCHIATRIC Hx Anxiety: Yes - SURGICAL HISTORY Other/Comment: left pinky - ANESTHESIA Hx Anesthesia: Yes Hx Anesthesia Reactions: No Hx Malignant Hyperthermia: No Meds Allergies/Adverse Reactions: Allergies Allergy/AdvReac Type Severity Reaction Status Date / Time aspirin AdvReac GI Bleed Verified 09/22/18 12:52 naproxen AdvReac GI bleed Verified 09/22/18 12:52 NSAIDS (Non-Steroidal AdvReac GI bleed Verified 09/22/18 12:52 Anti-Inflamma - Medications Medications: Current Medications Acetaminophen (Tylenol 325mg Tab) 650 mg PO Q8 PRN PRN Reason: Pain, moderate (4-7) Fosphenytoin Sodium (Cerebyx) 100 mg IV Q8 JANNIE Pantoprazole Sodium 40 mg/ (Sodium Chloride) 100 mls @ 20 mls/hr IVPB Q5H JANNIE Last Admin: 09/23/18 15:04 Dose: 20 mls/hr Octreotide Acetate 1,250 mcg/ (Sodium Chloride) 252.5 mls @ 10.1 mls/hr IV .Q24H JANNIE; Protocol Last Admin: 09/23/18 12:22 Dose: 10.1 mls/hr Metronidazole (Flagyl 500mg/100ml Ns) 100 mls @ 100 mls/hr IVPB Q8 JANNIE; Protocol Last Admin: 09/23/18 15:02 Dose: 100 mls/hr Vancomycin HCl 750 mg/ Sodium (Chloride) 250 mls @ 166.667 mls/hr IVPB Q12 JANNIE; Protocol Meropenem 1 gm/ Sodium (Chloride) 100 mls @ 100 mls/hr IVPB Q8 JANNIE; Protocol Last Admin: 09/23/18 15:03 Dose: 100 mls/hr Levetiracetam 2,000 mg/ Sodium (Chloride) 120 mls @ 210 mls/hr IVPB STAT STA Stop: 09/23/18 15:23 Levetiracetam 1,000 mg/ Sodium (Chloride) 110 mls @ 210 mls/hr IVPB Q12 JANNIE Lactulose (Enulose) 20 gm NG Q4 JANNIE Last Admin: 09/23/18 15:03 Dose: 20 gm Lorazepam (Ativan) 1 mg IVP Q4 PRN PRN Reason: Agitation Last Admin: 09/23/18 11:32 Dose: 1 mg Rifaximin (Xifaxan) 550 mg NG BID JANNIE; Protocol Physical Exam - Constitutional Additional comments: Intubated and has jaw twitching, eyes closed - ENT Exam Additional comments: ET tube NGT in place draining dark red-brown fluid - Respiratory Exam Additional comments: decreased breatsh ounds bibasilar is on the vent - Cardiovascular Exam Cardiovascular Exam: Tachycardia, +S1, +S2 - GI/Abdominal Exam GI & Abdominal Exam: Soft Additional comments: No distention - Extremities Exam Extremities exam: Positive for: normal inspection - Neurological Exam Neurological exam: Altered Results - Vital Signs Recent Vital Signs: Last Vital Signs Temp 99.7 F H 09/23/18 14:00 Pulse 114 H 09/23/18 14:00 Resp 16 09/23/18 14:00 BP 132/45 L 09/23/18 14:00 Pulse Ox 99 09/23/18 14:00 - Labs Result Diagrams: 09/23/18 10:29 09/23/18 14:00 Labs: Laboratory Results - last 24 hr 09/22/18 09/22/18 09/22/18 14:05 14:05 14:05 WBC RBC Hgb Hct MCV MCH MCHC RDW Plt Count MPV Neut % (Auto) Lymph % (Auto) [place] % (Auto) Eos % (Auto) Baso % (Auto) Neut # (Auto) Lymph # (Auto) [place] # (Auto) Eos # (Auto) Baso # (Auto) Neutrophils % (Manual) Band Neutrophils % Lymphocytes % (Manual) Reactive Lymphs % Monocytes % (Manual) Platelet Estimate Polychromasia Hypochromasia (manual) Poikilocytosis (manual Anisocytosis (manual) PT INR APTT pCO2 pO2 HCO3 ABG pH ABG Total CO2 ABG O2 Saturation ABG O2 Content ABG Base Excess ABG Hemoglobin ABG Carboxyhemoglobin POC ABG HHb (Measured) ABG Methemoglobin ABG O2 Capacity Jose Test ABG Potassium A-a O2 Difference Hgb O2 Saturation Glucose Lactate Vent Mode Mechanical Rate FiO2 Tidal Volume PEEP Crit Value Called To Crit Value Called By Crit Value Read Back Blood Gas Notified Time Sodium 142 Potassium 4.4 Chloride 114 H Carbon Dioxide 21 L Anion Gap 11 BUN 42 H Creatinine 0.8 Est GFR ( Amer) > 60 Est GFR (Non-Af Amer) > 60 Random Glucose 91 Lactic Acid Calcium 7.7 L Total Bilirubin 0.7 AST 73 H ALT 45 Alkaline Phosphatase 85 Ammonia Total Creatine Kinase Troponin I Total Protein 6.2 L Albumin 2.7 L Globulin 3.5 Albumin/Globulin Ratio 0.8 L Arterial Blood Potassium Alcohol, Quantitative < 10 Influenza Typ A,B (EIA) Negative for flu a/b Blood Type O POSITIVE Antibody Screen Negative Crossmatch See Detail BBK History Checked Patient has bt 09/23/18 09/23/18 09/23/18 05:10 06:13 10:29 WBC 17.8 H D 39.0 H* D RBC 1.91 L 2.58 L Hgb 5.0 L* 6.8 L Hct 17.7 L 22.6 L MCV 92.6 D 87.5 D MCH 26.2 L 26.2 L MCHC 28.3 L 30.0 L RDW 18.5 H 17.3 H Plt Count 224 D 219 MPV 7.7 7.5 Neut % (Auto) 65.6 94.3 H Lymph % (Auto) 21.2 1.2 L [place] % (Auto) 8.3 3.8 Eos % (Auto) 3.8 0.1 Baso % (Auto) 1.1 0.6 Neut # (Auto) 11.7 H 36.7 H Lymph # (Auto) 3.8 0.5 L [place] # (Auto) 1.5 H 1.5 H Eos # (Auto) 0.7 0.1 Baso # (Auto) 0.2 0.2 Neutrophils % (Manual) 83 H Band Neutrophils % 12 H* Lymphocytes % (Manual) 1 L Reactive Lymphs % 1 H Monocytes % (Manual) 3 Platelet Estimate Normal Polychromasia Slight Hypochromasia (manual) Moderate Poikilocytosis (manual Moderate Anisocytosis (manual) Moderate PT INR APTT pCO2 42 pO2 442 H HCO3 12.8 L ABG pH 7.11 L* ABG Total CO2 14.6 L ABG O2 Saturation 99.9 H ABG O2 Content ABG Base Excess -15.7 L ABG Hemoglobin ABG Carboxyhemoglobin POC ABG HHb (Measured) ABG Methemoglobin ABG O2 Capacity Jose Test Yes ABG Potassium 5.5 H A-a O2 Difference 219.0 Hgb O2 Saturation Glucose 176 H Lactate 6.1 H* Vent Mode A/c Mechanical Rate 18 FiO2 100.0 Tidal Volume 500 PEEP 5 Crit Value Called To Placido fuentes md Crit Value Called By 333 Crit Value Read Back Y Blood Gas Notified Time 619 Sodium 143.0 Potassium Chloride 123.0 H Carbon Dioxide Anion Gap BUN Creatinine Est GFR ( Amer) Est GFR (Non-Af Amer) Random Glucose Lactic Acid Calcium Total Bilirubin AST ALT Alkaline Phosphatase Ammonia Total Creatine Kinase Troponin I Total Protein Albumin Globulin Albumin/Globulin Ratio Arterial Blood Potassium 5.5 H Alcohol, Quantitative Influenza Typ A,B (EIA) Blood Type Antibody Screen Crossmatch BBK History Checked 09/23/18 09/23/18 09/23/18 10:29 10:29 10:29 WBC RBC Hgb Hct MCV MCH MCHC RDW Plt Count MPV Neut % (Auto) Lymph % (Auto) [place] % (Auto) Eos % (Auto) Baso % (Auto) Neut # (Auto) Lymph # (Auto) [place] # (Auto) Eos # (Auto) Baso # (Auto) Neutrophils % (Manual) Band Neutrophils % Lymphocytes % (Manual) Reactive Lymphs % Monocytes % (Manual) Platelet Estimate Polychromasia Hypochromasia (manual) Poikilocytosis (manual Anisocytosis (manual) PT 21.2 H INR 1.9 APTT 40.0 H pCO2 pO2 HCO3 ABG pH ABG Total CO2 ABG O2 Saturation ABG O2 Content ABG Base Excess ABG Hemoglobin ABG Carboxyhemoglobin POC ABG HHb (Measured) ABG Methemoglobin ABG O2 Capacity Jose Test ABG Potassium A-a O2 Difference Hgb O2 Saturation Glucose Lactate Vent Mode Mechanical Rate FiO2 Tidal Volume PEEP Crit Value Called To Crit Value Called By Crit Value Read Back Blood Gas Notified Time Sodium Potassium Chloride Carbon Dioxide Anion Gap BUN Creatinine Est GFR ( Amer) Est GFR (Non-Af Amer) Random Glucose Lactic Acid Calcium Total Bilirubin AST ALT Alkaline Phosphatase Ammonia 483 H* Total Creatine Kinase 856 H Troponin I 0.2020 H* Total Protein Albumin Globulin Albumin/Globulin Ratio Arterial Blood Potassium Alcohol, Quantitative Influenza Typ A,B (EIA) Blood Type Antibody Screen Crossmatch BBK History Checked 09/23/18 09/23/18 09/23/18 10:29 13:52 14:00 WBC RBC Hgb Hct MCV MCH MCHC RDW Plt Count MPV Neut % (Auto) Lymph % (Auto) [place] % (Auto) Eos % (Auto) Baso % (Auto) Neut # (Auto) Lymph # (Auto) [place] # (Auto) Eos # (Auto) Baso # (Auto) Neutrophils % (Manual) Band Neutrophils % Lymphocytes % (Manual) Reactive Lymphs % Monocytes % (Manual) Platelet Estimate Polychromasia Hypochromasia (manual) Poikilocytosis (manual Anisocytosis (manual) PT INR APTT pCO2 26 L pO2 176 H HCO3 12.2 L ABG pH 7.20 L ABG Total CO2 11.0 L ABG O2 Saturation 99.7 H ABG O2 Content 9.8 L ABG Base Excess -16.4 L ABG Hemoglobin 6.9 L ABG Carboxyhemoglobin 1.0 POC ABG HHb (Measured) 0.3 ABG Methemoglobin 2.1 ABG O2 Capacity 9.8 L Jose Test Yes ABG Potassium A-a O2 Difference 148.0 Hgb O2 Saturation 96.7 Glucose Lactate Vent Mode Prvc/ac Mechanical Rate 16 FiO2 50.0 Tidal Volume 500 PEEP 5 Crit Value Called To Dr. promise page m.d. Crit Value Called By Ghazal Lawrence Value Read Back Y Blood Gas Notified Time 1410 Sodium Potassium Chloride Carbon Dioxide Anion Gap BUN Creatinine Est GFR ( Amer) Est GFR (Non-Af Amer) Random Glucose Lactic Acid 9.0 H* Calcium Total Bilirubin AST ALT Alkaline Phosphatase Ammonia Total Creatine Kinase Troponin I 0.2540 H* Total Protein Albumin Globulin Albumin/Globulin Ratio Arterial Blood Potassium Alcohol, Quantitative Influenza Typ A,B (EIA) Blood Type Antibody Screen Crossmatch BBK History Checked 09/23/18 09/23/18 14:00 14:00 WBC RBC Hgb Hct MCV MCH MCHC RDW Plt Count MPV Neut % (Auto) Lymph % (Auto) [place] % (Auto) Eos % (Auto) Baso % (Auto) Neut # (Auto) Lymph # (Auto) [place] # (Auto) Eos # (Auto) Baso # (Auto) Neutrophils % (Manual) Band Neutrophils % Lymphocytes % (Manual) Reactive Lymphs % Monocytes % (Manual) Platelet Estimate Polychromasia Hypochromasia (manual) Poikilocytosis (manual Anisocytosis (manual) PT INR APTT pCO2 pO2 HCO3 ABG pH ABG Total CO2 ABG O2 Saturation ABG O2 Content ABG Base Excess ABG Hemoglobin ABG Carboxyhemoglobin POC ABG HHb (Measured) ABG Methemoglobin ABG O2 Capacity Jose Test ABG Potassium A-a O2 Difference Hgb O2 Saturation Glucose Lactate Vent Mode Mechanical Rate FiO2 Tidal Volume PEEP Crit Value Called To Crit Value Called By Crit Value Read Back Blood Gas Notified Time Sodium 147 Potassium 6.5 H* D Chloride 120 H Carbon Dioxide 12 L Anion Gap 22 H BUN 50 H Creatinine 1.9 H Est GFR ( Amer) 45 Est GFR (Non-Af Amer) 38 Random Glucose 141 H Lactic Acid 10.2 H* Calcium 6.6 L Total Bilirubin 1.2 AST 218 H D ALT 65 Alkaline Phosphatase 108 Ammonia Total Creatine Kinase Troponin I Total Protein 5.7 L Albumin 2.4 L Globulin 3.3 Albumin/Globulin Ratio 0.7 L Arterial Blood Potassium Alcohol, Quantitative Influenza Typ A,B (EIA) Blood Type Antibody Screen Crossmatch BBK History Checked Laboratory Results - last 72 hr 09/22/18 09/22/18 09/22/18 14:05 14:05 14:05 WBC 4.9 RBC 2.10 L Hgb 5.5 L* D Hct 18.0 L MCV 85.7 D MCH 26.3 L MCHC 30.7 L RDW 18.9 H Plt Count 115 L D MPV 7.6 Neut % (Auto) 70.5 Lymph % (Auto) 13.2 L [place] % (Auto) 11.7 H Eos % (Auto) 3.4 Baso % (Auto) 1.2 Neut # (Auto) 3.5 Lymph # (Auto) 0.7 L [place] # (Auto) 0.6 Eos # (Auto) 0.2 Baso # (Auto) 0.1 Neutrophils % (Manual) Band Neutrophils % Lymphocytes % (Manual) Reactive Lymphs % Monocytes % (Manual) Platelet Estimate Polychromasia Hypochromasia (manual) Poikilocytosis (manual Anisocytosis (manual) PT INR APTT pCO2 pO2 HCO3 ABG pH ABG Total CO2 ABG O2 Saturation ABG O2 Content ABG Base Excess ABG Hemoglobin ABG Carboxyhemoglobin POC ABG HHb (Measured) ABG Methemoglobin ABG O2 Capacity Jose Test ABG Potassium A-a O2 Difference Hgb O2 Saturation Glucose Lactate Vent Mode Mechanical Rate FiO2 Tidal Volume PEEP Crit Value Called To Crit Value Called By Crit Value Read Back Blood Gas Notified Time Sodium 142 Potassium 4.4 Chloride 114 H Carbon Dioxide 21 L Anion Gap 11 BUN 42 H Creatinine 0.8 Est GFR ( Amer) > 60 Est GFR (Non-Af Amer) > 60 Random Glucose 91 Lactic Acid Calcium 7.7 L Total Bilirubin 0.7 AST 73 H ALT 45 Alkaline Phosphatase 85 Ammonia Total Creatine Kinase Troponin I Total Protein 6.2 L Albumin 2.7 L Globulin 3.5 Albumin/Globulin Ratio 0.8 L Arterial Blood Potassium Alcohol, Quantitative < 10 Influenza Typ A,B (EIA) Negative for flu a/b Blood Type Antibody Screen Crossmatch BBK History Checked 09/22/18 09/23/18 09/23/18 14:05 05:10 06:13 WBC 17.8 H D RBC 1.91 L Hgb 5.0 L* Hct 17.7 L MCV 92.6 D MCH 26.2 L MCHC 28.3 L RDW 18.5 H Plt Count 224 D MPV 7.7 Neut % (Auto) 65.6 Lymph % (Auto) 21.2 [place] % (Auto) 8.3 Eos % (Auto) 3.8 Baso % (Auto) 1.1 Neut # (Auto) 11.7 H Lymph # (Auto) 3.8 [place] # (Auto) 1.5 H Eos # (Auto) 0.7 Baso # (Auto) 0.2 Neutrophils % (Manual) Band Neutrophils % Lymphocytes % (Manual) Reactive Lymphs % Monocytes % (Manual) Platelet Estimate Polychromasia Hypochromasia (manual) Poikilocytosis (manual Anisocytosis (manual) PT INR APTT pCO2 42 pO2 442 H HCO3 12.8 L ABG pH 7.11 L* ABG Total CO2 14.6 L ABG O2 Saturation 99.9 H ABG O2 Content ABG Base Excess -15.7 L ABG Hemoglobin ABG Carboxyhemoglobin POC ABG HHb (Measured) ABG Methemoglobin ABG O2 Capacity Jose Test Yes ABG Potassium 5.5 H A-a O2 Difference 219.0 Hgb O2 Saturation Glucose 176 H Lactate 6.1 H* Vent Mode A/c Mechanical Rate 18 FiO2 100.0 Tidal Volume 500 PEEP 5 Crit Value Called To Placido fuentes md Crit Value Called By 333 Crit Value Read Back Y Blood Gas Notified Time 619 Sodium 143.0 Potassium Chloride 123.0 H Carbon Dioxide Anion Gap BUN Creatinine Est GFR ( Amer) Est GFR (Non-Af Amer) Random Glucose Lactic Acid Calcium Total Bilirubin AST ALT Alkaline Phosphatase Ammonia Total Creatine Kinase Troponin I Total Protein Albumin Globulin Albumin/Globulin Ratio Arterial Blood Potassium 5.5 H Alcohol, Quantitative Influenza Typ A,B (EIA) Blood Type O POSITIVE Antibody Screen Negative Crossmatch See Detail BBK History Checked Patient has bt 09/23/18 09/23/18 09/23/18 10:29 10:29 10:29 WBC 39.0 H* D RBC 2.58 L Hgb 6.8 L Hct 22.6 L MCV 87.5 D MCH 26.2 L MCHC 30.0 L RDW 17.3 H Plt Count 219 MPV 7.5 Neut % (Auto) 94.3 H Lymph % (Auto) 1.2 L [place] % (Auto) 3.8 Eos % (Auto) 0.1 Baso % (Auto) 0.6 Neut # (Auto) 36.7 H Lymph # (Auto) 0.5 L [place] # (Auto) 1.5 H Eos # (Auto) 0.1 Baso # (Auto) 0.2 Neutrophils % (Manual) 83 H Band Neutrophils % 12 H* Lymphocytes % (Manual) 1 L Reactive Lymphs % 1 H Monocytes % (Manual) 3 Platelet Estimate Normal Polychromasia Slight Hypochromasia (manual) Moderate Poikilocytosis (manual Moderate Anisocytosis (manual) Moderate PT 21.2 H INR 1.9 APTT 40.0 H pCO2 pO2 HCO3 ABG pH ABG Total CO2 ABG O2 Saturation ABG O2 Content ABG Base Excess ABG Hemoglobin ABG Carboxyhemoglobin POC ABG HHb (Measured) ABG Methemoglobin ABG O2 Capacity Jose Test ABG Potassium A-a O2 Difference Hgb O2 Saturation Glucose Lactate Vent Mode Mechanical Rate FiO2 Tidal Volume PEEP Crit Value Called To Crit Value Called By Crit Value Read Back Blood Gas Notified Time Sodium Potassium Chloride Carbon Dioxide Anion Gap BUN Creatinine Est GFR ( Amer) Est GFR (Non-Af Amer) Random Glucose Lactic Acid Calcium Total Bilirubin AST ALT Alkaline Phosphatase Ammonia Total Creatine Kinase 856 H Troponin I 0.2020 H* Total Protein Albumin Globulin Albumin/Globulin Ratio Arterial Blood Potassium Alcohol, Quantitative Influenza Typ A,B (EIA) Blood Type Antibody Screen Crossmatch BBK History Checked 09/23/18 09/23/18 09/23/18 10:29 10:29 13:52 WBC RBC Hgb Hct MCV MCH MCHC RDW Plt Count MPV Neut % (Auto) Lymph % (Auto) [place] % (Auto) Eos % (Auto) Baso % (Auto) Neut # (Auto) Lymph # (Auto) [place] # (Auto) Eos # (Auto) Baso # (Auto) Neutrophils % (Manual) Band Neutrophils % Lymphocytes % (Manual) Reactive Lymphs % Monocytes % (Manual) Platelet Estimate Polychromasia Hypochromasia (manual) Poikilocytosis (manual Anisocytosis (manual) PT INR APTT pCO2 26 L pO2 176 H HCO3 12.2 L ABG pH 7.20 L ABG Total CO2 11.0 L ABG O2 Saturation 99.7 H ABG O2 Content 9.8 L ABG Base Excess -16.4 L ABG Hemoglobin 6.9 L ABG Carboxyhemoglobin 1.0 POC ABG HHb (Measured) 0.3 ABG Methemoglobin 2.1 ABG O2 Capacity 9.8 L Jose Test Yes ABG Potassium A-a O2 Difference 148.0 Hgb O2 Saturation 96.7 Glucose Lactate Vent Mode Prvc/ac Mechanical Rate 16 FiO2 50.0 Tidal Volume 500 PEEP 5 Crit Value Called To Dr. promise page m.d. Crit Value Called By [facility] Crit Value Read Back Y Blood Gas Notified Time 1410 Sodium Potassium Chloride Carbon Dioxide Anion Gap BUN Creatinine Est GFR ( Amer) Est GFR (Non-Af Amer) Random Glucose Lactic Acid 9.0 H* Calcium Total Bilirubin AST ALT Alkaline Phosphatase Ammonia 483 H* Total Creatine Kinase Troponin I Total Protein Albumin Globulin Albumin/Globulin Ratio Arterial Blood Potassium Alcohol, Quantitative Influenza Typ A,B (EIA) Blood Type Antibody Screen Crossmatch BBK History Checked 09/23/18 09/23/18 09/23/18 14:00 14:00 14:00 WBC RBC Hgb Hct MCV MCH MCHC RDW Plt Count MPV Neut % (Auto) Lymph % (Auto) [place] % (Auto) Eos % (Auto) Baso % (Auto) Neut # (Auto) Lymph # (Auto) [place] # (Auto) Eos # (Auto) Baso # (Auto) Neutrophils % (Manual) Band Neutrophils % Lymphocytes % (Manual) Reactive Lymphs % Monocytes % (Manual) Platelet Estimate Polychromasia Hypochromasia (manual) Poikilocytosis (manual Anisocytosis (manual) PT INR APTT pCO2 pO2 HCO3 ABG pH ABG Total CO2 ABG O2 Saturation ABG O2 Content ABG Base Excess ABG Hemoglobin ABG Carboxyhemoglobin POC ABG HHb (Measured) ABG Methemoglobin ABG O2 Capacity Jose Test ABG Potassium A-a O2 Difference Hgb O2 Saturation Glucose Lactate Vent Mode Mechanical Rate FiO2 Tidal Volume PEEP Crit Value Called To Crit Value Called By Crit Value Read Back Blood Gas Notified Time Sodium 147 Potassium 6.5 H* D Chloride 120 H Carbon Dioxide 12 L Anion Gap 22 H BUN 50 H Creatinine 1.9 H Est GFR ( Amer) 45 Est GFR (Non-Af Amer) 38 Random Glucose 141 H Lactic Acid 10.2 H* Calcium 6.6 L Total Bilirubin 1.2 AST 218 H D ALT 65 Alkaline Phosphatase 108 Ammonia Total Creatine Kinase Troponin I 0.2540 H* Total Protein 5.7 L Albumin 2.4 L Globulin 3.3 Albumin/Globulin Ratio 0.7 L Arterial Blood Potassium Alcohol, Quantitative Influenza Typ A,B (EIA) Blood Type Antibody Screen Crossmatch BBK History Checked Microbiology 05/20/18 05:35 Blood-Venous Blood Culture - Final 05/20/18 05:35 Blood-Venous Gram Stain - Final NO GROWTH AFTER 5 DAYS TEST NOT PERFORMED 05/20/18 05:25 Blood-Venous Blood Culture - Final 05/20/18 05:25 Blood-Venous Gram Stain - Final NO GROWTH AFTER 5 DAYS TEST NOT PERFORMED 05/17/18 15:06 Blood Blood Culture - Final 05/17/18 15:06 Blood Gram Stain - Final NO GROWTH AFTER 5 DAYS TEST NOT PERFORMED 05/17/18 15:06 Blood Blood Culture - Final 05/17/18 15:06 Blood Gram Stain - Final NO GROWTH AFTER 5 DAYS TEST NOT PERFORMED 07/27/18 15:20 Blood-Venous Blood Culture - Final 07/27/18 15:20 Blood-Venous Gram Stain - Final NO GROWTH AFTER 5 DAYS TEST NOT PERFORMED 06/29/18 20:23 Blood-Venous Blood Culture - Final 06/29/18 20:23 Blood-Venous Gram Stain - Final NO GROWTH AFTER 5 DAYS TEST NOT PERFORMED Accession No. : [id number] Patient Name / ID : LIANET Wilks / [id number] Exam Date : 09/23/2018 12:46:27 ( Approved ) Study Comment : Sex / Age : M / 7Y Creator : Hi Vang MD Dictator : Hi Vang MD Practice Director : Roll Cleaner : Hi Vang MD Approver2 : Report Date : 09/23/2018 13:24:57 My Comment : Date of service: 09/23/2018 PROCEDURE: CT HEAD WITHOUT CONTRAST. HISTORY: code s/p ROSC COMPARISON: None available. TECHNIQUE: Axial computed tomography images were obtained through the head/brain without intravenous contrast. Radiation dose: Total exam DLP = 1242.85 mGy-cm. This CT exam was performed using one or more of the following dose reduction techniques: Automated exposure control, adjustment of the mA and/or kV according to patient size, and/or use of iterative reconstruction technique. FINDINGS: HEMORRHAGE: No intracranial hemorrhage. BRAIN: There is diffuse cortical edema appreciated in the interval and is particularly prominent at the bilateral basal ganglia in a pattern most compatible with anoxic cephalopathy. Basilar cisterns are diminishing though still patent. No brainstem compression identified at this time. Overall ventricular volume appears slightly diminished in the interval as well, particularly the bilateral lateral ventricles. No hydrocephalus. Midline brain anatomy is unremarkable grossly. CALVARIUM: Unremarkable. PARANASAL SINUSES: Multifocal sinusitis affecting primarily the bilateral maxillary sinuses but also mildly the bilateral ethmoid and minimally affecting the sphenoid sinuses symmetrically. A segment of a likely endotracheal tube is seen within the oral cavity. MASTOID AIR CELLS: Unremarkable as visualized. No inflammatory changes. OTHER FINDINGS: None. IMPRESSION: Overall pattern highly suggestive of anoxic encephalopathy in proper clinical setting. No intracranial hemorrhage. Basilar cisterns are marginally diminished no ney impression the brainstem appreciated at this time however. Continued clinical and CT follow-up advised. Findings discussed with Dr. La with written down read back verification 09/23/2018 1:10 p.m.. Accession No. : [id number] Patient Name / ID : LIANET ARGUELLES A / [id number] Exam Date : 09/23/2018 04:19:03 ( Approved ) Study Comment : Sex / Age : M / 53Y Creator : Alvarez Finch MD Dictator : Alvarez Finch MD Practice Director : Roll Cleaner : Alvarez Finch MD Approver2 : Report Date : 09/23/2018 10:44:11 My Comment : Date of service: 09/23/2018 HISTORY: post intubation COMPARISON: Comparison chest 06/29/2018. TECHNIQUE: 1 view obtained. FINDINGS: In situ ETT, the tip of which lies approximately nearly 9 cm above maranda. NGT is present, the tip of which appears to be located in good position, left upper quadrant of the abdomen LUNGS: Patchy opacity seen in the right lower lung field likely representing atelectasis and/or infiltrate. Suspect small effusion PLEURA: As above. No pneumothorax apparent. CARDIOVASCULAR: Mild aortic atherosclerotic calcification less well seen on this exam compared to prior chest radiograph. Normal cardiac size. No pulmonary vascular congestion. OSSEOUS STRUCTURES: No significant abnormalities. VISUALIZED UPPER ABDOMEN: Normal. OTHER FINDINGS: None. IMPRESSION: ETT and NGT as above. Patchy atelectasis and or infiltrate changes and suspected small effusion right lower lung field. Assessment & Plan (1) Acute gastrointestinal bleeding Status: Acute (2) Alcohol abuse with alcohol-induced disorder Status: Acute (3) Leukocytosis Status: Acute (4) Anemia Status: Acute (5) GI bleed Status: Acute (6) Aspiration pneumonia Status: Acute - Assessment and Plan (Free Text) Assessment: A/P- 53 year old male with h/o GI bleed, ETOH abuse, ETOH cirrhosis and variceal bl eed s/p TIPS who was admitted with vomiting and bad pain and found to have severe anemia and post PRBC transfusion developed reaaction to the transfusion and unresponsive was coded and now is intubated in ICU. Pt. most likely did have aspiration pneumonitis as well based on the clinical history. allergic reaction sec to PRBC transfusion as well based on clinical history. active seizures. Plan- check blood cx x 2. check UA and urine cx. check sputum cx. advise to place patient on broad spectrum antibiotics to cover for gram neg, anaerobes and gram pos as well. advise to d/c cefepime. Advise start pt. on IV meropnem 1 gram [id number]. can continue with flagyl and vanco that was already initiated by the primary team. keep vanco trough <15. Neuro evaluation. GI f/u. all labs , imaging and chart notes reviewed. case d/w Nematology Teacher in detail. Thank you for allowing me to take part in the care of this patient. Critical care time spent 60 minutes.
[2018-09-23] MEDS: Sodium Bicarbonate 8.4% 100 MEQ in Dextrose 5% In Water 1,000 ML IV SCH (16:20)
[2018-09-23] MEDS ORDERED: Fosphenytoin 100 mg/2 ml Inj IV SCH (17:00)
[2018-09-23] MEDS ORDERED: Sod Polystyrene Sulf 15 gm/60 ml Susp NG STA (17:17)
[2018-09-23] MEDS ORDERED: Albuterol 0.083% Inhal Sol (2.5 mg/3 mL) UD INH STA (17:18)
[2018-09-23] MEDS ORDERED: Calcium Gluconate 4.65 mEq/10 ml Inj IV ONE ×2 (17:26→17:42)
[2018-09-23] MEDS ORDERED: Insulin Regular 100 units/ml SC STA ×2 (17:31→22:25)
[2018-09-23] MEDS ORDERED: Dextrose 50% SYRINGE Inj (50 ml) IVP ONE ×2 (17:31→22:25)
[2018-09-23] MEDS ORDERED: Sodium Bicarbonate (8.4%) 50 Meq Syringe IVP STA (17:32)
[2018-09-23] MEDS ORDERED: Calcium Gluconate 10 MEQ in Sodium Chloride 0.9% 100 ML IV ONE (17:45)
[2018-09-23] MEDS: Fosphenytoin 100 mg/2 ml Inj IV SCH (18:07)
--- NOTE | 2018-09-23 19:25 | CARD ---
APPROVED REPORT Date of service: 09/23/2018 EKG Measurement Heart [id number] MD [id number] <Conclusion> Sinus tachycardia Possible Left atrial enlargement Septal infarct, age undetermined Abnormal ECG
[2018-09-23] MEDS ORDERED: Acetaminophen 650mg/20.3ml solution UD PO PRN (19:46)
[2018-09-23] MEDS ORDERED: Cefepime 2 GM in Sodium Chloride 0.9% 100 ML IVPB SCH (21:00)
--- NOTE | 2018-09-23 21:29 | CON ---
DATE: 09/22/2018 REFERRING PHYSICIAN: Dr. Nicholson HISTORY OF PRESENT ILLNESS: This is a 53-year-old alcoholic with recurrent admissions for general complaints, comes in basically for lice treatment and anemia and some hematemesis drinking. The patient on examination was noncooperative with exam. He is a poor historian. History is obtained via chart and staff. PAST MEDICAL HISTORY: As above. PAST SURGICAL HISTORY: As above. MEDICATIONS: Reviewed. REVIEW OF SYSTEMS: All other systems have been obtained. PHYSICAL EXAMINATION: VITAL SIGNS: Here in the hospital grossly unremarkable. GENERAL: A confused, elderly appearing male, lying in bed comfortably in mild confusion and distress. HEENT: Head: Normocephalic and atraumatic. Eyes: Pupils are equally reactive to light bilaterally. No conjunctival pallor or icterus. NECK: Supple. Normal range of motion. No lymphadenopathy appreciated. LUNGS: Coarse breath sounds bilaterally. HEART: S1 and S2. Regular rate and rhythm. ABDOMEN: Soft, nontender. Bowel sounds present. No rebound. No guarding. RECTAL: Deferred. EXTREMITIES: Pulses present bilaterally. SKIN: Warm, dry, and intact. LABORATORY DATA: All labs and radiology have been reviewed. Labs include WBC is 4.9, hemoglobin of 5.5, hematocrit of 18, platelet count of 115. Alcohol level less than 10. ASSESSMENT AND PLAN: This is a 53-year-old man who is alcoholic with anemia, questionable gastrointestinal bleed and alcohol abuse. From a gastrointestinal standpoint, prognosis is guarded. Consider moderate delirium tremens. Supportive care for now. Transfuse. Proton pump inhibitor twice a day. We will follow the patient with you. Thank you for the consult. Brody Sanchez MD/ PhD cc: Dr. Nicholson
--- NOTE | 2018-09-23 21:38 | CP.PCM.PN ---
Subjective - Date & Time of Evaluation Date of Evaluation: 09/23/18 Time of Evaluation: 10:00 - Subjective Subjective: s/p cardiac arrest Objective - Vital Signs/Intake and Output Vital Signs (last 24 hours): Temp Pulse Resp BP Pulse Ox 102.4 F H 106 H 24 108/31 L 91 L 09/23/18 21:14 09/23/18 21:14 09/23/18 21:14 09/23/18 21:14 09/23/18 18:00 Intake and Output: 09/23/18 09/24/18 18:59 06:59 Intake Total 2475 10 Output Total 1000 Balance 1475 10 - Medications Medications: Current Medications Acetaminophen (Tylenol 650mg/20.3ml Solution Ud) 650 mg PO Q6 PRN PRN Reason: Temperature Fosphenytoin Sodium (Cerebyx) 200 mg IV Q8 JANNIE Last Admin: 09/23/18 18:07 Dose: 200 mg Pantoprazole Sodium 40 mg/ (Sodium Chloride) 100 mls @ 20 mls/hr IVPB Q5H JANNIE Last Admin: 09/23/18 18:08 Dose: 20 mls/hr Octreotide Acetate 1,250 mcg/ (Sodium Chloride) 252.5 mls @ 10.1 mls/hr IV .Q 24H JANNIE; Protocol Last Admin: 09/23/18 12:22 Dose: 10.1 mls/hr Metronidazole (Flagyl 500mg/100ml Ns) 100 mls @ 100 mls/hr IVPB Q8 JANNIE; Protocol Last Admin: 09/23/18 15:02 Dose: 100 mls/hr Vancomycin HCl 750 mg/ Sodium (Chloride) 250 mls @ 166.667 mls/hr IVPB Q12 JANNIE; Protocol Meropenem 1 gm/ Sodium (Chloride) 100 mls @ 100 mls/hr IVPB Q8 JANNIE; Protocol Last Admin: 09/23/18 15:03 Dose: 100 mls/hr Levetiracetam 1,000 mg/ Sodium (Chloride) 110 mls @ 210 mls/hr IVPB Q12 JANNIE Sodium Bicarbonate 100 meq/ (Dextrose) 1,100 mls @ 125 mls/hr IV .Q8H48M JANNIE Stop: 09/24/18 15:50 Last Admin: 09/23/18 16:20 Dose: 125 mls/hr Norepinephrine Bitartrate 8 mg (/ Dextrose) 258 mls @ 4.84 mls/hr IV .Q24H ONE; Protocol Stop: 09/24/18 19:35 Last Admin: 09/23/18 19:36 Dose: 2.5 mcg/min, 4.84 mls/hr Lactulose (Enulose) 20 gm NG Q4 JANNIE Last Admin: 09/23/18 21:17 Dose: 20 gm Lorazepam (Ativan) 1 mg IVP Q4 PRN PRN Reason: Agitation Last Admin: 09/23/18 11:32 Dose: 1 mg Rifaximin (Xifaxan) 550 mg NG BID JANNIE; Protocol Last Admin: 09/23/18 16:21 Dose: 550 mg - Labs Labs: 09/23/18 10:29 09/23/18 14:00 PT 21.2 Seconds (9.8-13.1) H 09/23/18 10:29 INR 1.9 09/23/18 10:29 APTT 40.0 Seconds (25.6-37.1) H 09/23/18 10:29 - Head Exam Head Exam: NORMOCEPHALIC - Neck Exam Neck Exam: Normal Inspection - Respiratory Exam Respiratory Exam: Rhonchi - GI/Abdominal Exam GI & Abdominal Exam: Soft, Normal Bowel Sounds Assessment and Plan - Assessment and Plan (Free Text) Assessment: 53 yo EtOh male s/p cardiac arrest prgnosis guarded CT abd/pelv transfuse supportive care prognosis poor/guarded
[2018-09-23] MEDS: levETIRAcetam 1,000 MG in Sodium Chloride 0.9% 100 ML IVPB SCH (22:15)
[2018-09-23 22:20] LABS: CALCIUM 6.6 mg/dL (8.4-10.2)
[2018-09-23] MEDS ORDERED: Insulin Regular 100 units/ml IVP STA ×2 (22:25→22:38)
[2018-09-23] MEDS: Phenylephrine 30 MG in Sodium Chloride 0.9% 250 ML IV SCH (23:28)
[2018-09-24] MEDS: Fosphenytoin 100 mg/2 ml Inj IV SCH ×3 (01:24→16:42)
[2018-09-24] MEDS: metroNIDAZOLE 500mg/100ml NS 100 ML IVPB SCH ×3 (01:28→16:42)
[2018-09-24] MEDS: Sodium Bicarbonate 8.4% 100 MEQ in Dextrose 5% In Water 1,000 ML IV SCH ×3 (01:30→11:05)
[2018-09-24] MEDS: Meropenem 1 GM in Sodium Chloride 0.9% 100 ML IVPB SCH ×3 (01:32→16:43)
[2018-09-24] MEDS: Pantoprazole 40 MG in Sodium Chloride 0.9% 100 ML IVPB SCH ×5 (03:49→20:55)
[2018-09-24] MEDS: Phenylephrine 30 MG in Sodium Chloride 0.9% 250 ML IV SCH ×4 (03:50→22:12)
[2018-09-24 04:31] LABS: ABG ALLEN TEST YES; ARTERIAL BLOOD GAS HCO3 10.1 mmol/L (21-28); ARTERIAL BLOOD GAS O2 SAT 98.8 % (95-98); ARTERIAL BLOOD GAS PCO2 58 mm/Hg (35-45); ARTERIAL BLOOD GAS PH 6.97 (7.35-7.45); ARTERIAL BLOOD GAS PO2 90 mm/Hg (80-100); ARTERIAL BLOOD GAS TCO2 15.1 mmol/L (22-28)
[2018-09-24] MEDS ORDERED: Sodium Bicarbonate 7.5% (0.9 MEQ/ML) 50ML INJ IV ONE (04:37)
[2018-09-24 06:19] LABS: INR 2.1
[2018-09-24 06:21] LABS: PARTIAL THROMBOPLASTIN TIME 48.7 Seconds (25.6-37.1)
[2018-09-24 06:35] LABS: ALB/GLOB RATIO 0.8 (1.0-2.1); ALBUMIN 2.5 g/dL (3.5-5.0); CALCIUM 6.1 mg/dL (8.4-10.2)
[2018-09-24 06:43] LABS: BASO # 0.1 K/uL (0.0-0.2); BASO % 0.3 % (0.0-2.0); HEMOGLOBIN 7.9 g/dL (12.0-18.0); LYMPH # 1.2 K/uL (1.0-4.3); LYMPH % 3.2 % (20.0-40.0); MEAN CELL VOLUME 91.9 fl (80.0-94.0); MEAN CORPUSCULAR HEMOGLOBIN 27.7 pg (27.0-31.0); MEAN CORPUSCULAR HGB CONC 30.1 g/dL (33.0-37.0); MEAN PLATELET VOLUME 8.6 fl (7.2-11.7); MONO % 5.3 % (0.0-10.0); NEUT # 34.5 K/uL (1.8-7.0); NEUT % 91.2 % (50.0-75.0); NRBC % 0.9 % (0.0-0.0); PLATELET COUNT 226 K/uL (130-400); RBC 2.86 Mil/uL (4.40-5.90); RED CELL DISTRIBUTION WIDTH 17.6 % (11.5-14.5)
[2018-09-24 06:45] LABS: WHITE BLOOD COUNT 37.8 K/uL (4.8-10.8)
[2018-09-24] MEDS ORDERED: Propofol 10 mg/ml 1,000 MG/100 ML VIAL IV SCH (08:15)
--- NOTE | 2018-09-24 08:28 | RAD ---
Date of service: 09/24/2018 HISTORY: intubated COMPARISON: Portable chest 09/23/2018. TECHNIQUE: 1 view obtained. FINDINGS: LUNGS: Endotracheal tube is now been advanced terminating 1 cm above the maranda. Significant reduction in right middle lobe atelectasis or infiltrate is identified. Mild increased reticular markings are seen diffusely once again without significant change. PLEURA: No significant pleural effusion identified, no pneumothorax apparent. CARDIOVASCULAR: Calcific atherosclerotic changes are seen related to the thoracic aorta. Normal cardiac size. No pulmonary vascular congestion. OSSEOUS STRUCTURES: No significant abnormalities. VISUALIZED UPPER ABDOMEN: Orogastric tube identified with distal portion poorly characterized due to overlapping opacities. OTHER FINDINGS: None. IMPRESSION: Adequate adjustment of endotracheal tube with diminished likely atelectasis right middle lobe. Mild residual remains. Reticular markings appear increased diffusely bilaterally. No pulmonary vascular congestion however. Orogastric termination unclear.
--- NOTE | 2018-09-24 09:00 | CP.CCUPN ---
CCU Subjective - Physician Review Events Since Last Encounter (Free Text): Patient on ventilator, on PRVC TV 500, RR 28, FIO2 80%, on pressors, no response to verbal stimuli, events reviewed CCU Objective - Vital Signs / Intake & Output Vital Signs (Last 4 hours): Vital Signs Temp Pulse Resp BP Pulse Ox 09/24/18 08:00 101.5 F H 108 H 22 112/42 L 100 09/24/18 07:00 101.1 F H 108 H 27 H 111/37 L 100 09/24/18 06:00 100 H 28 H 90/31 L 95 09/24/18 05:45 98.6 F 101 H 28 H 103/34 L 09/24/18 05:00 96 H 28 H 110/40 L 96 Intake and Output (Last 8hrs): Intake & Output 09/23/18 09/24/18 09/24/18 22:59 06:59 14:59 Intake Total 1364 3168 380 Output Total 400 100 Balance 964 3068 380 Weight 181 lb 3.2 oz Intake: IV 283 989 380 Intake, Piggyback 961 1117 Oral 0 Blood Product 0 937 Apheresis Platelets Acda 612 Lr Unit [id number] Red Blood Cells Cpd As1 0 Lr Unit [id number] Red Blood Cells Cpd As1 325 Lr Unit [id number] Red Blood Cells Cpd As1 0 Lr Unit [id number] Free Water Flush 100 100 Other 20 25 Apheresis Platelets Acda 15 Lr Unit [id number] Red Blood Cells Cpd As1 10 Lr Unit [id number] Red Blood Cells Cpd As1 10 Lr Unit [id number] Red Blood Cells Cpd As1 10 Lr Unit [id number] Output: Gastric Amount 50 Stomach 50 Urine 350 100 Urethral (Ty) 350 100 Other: # Bowel Movements 0 - Physical Exam Head: Positive for: Atraumatic, Normocephalic Conjunctiva: Positive for: Normal Mouth: Positive for: Moist Mucous Membranes Nose (External): Positive for: Atraumatic Neck: Positive for: Normal Range of Motion Respiratory/Chest: Positive for: Rhonchi Abdomen: Positive for: Normal Bowel Sounds Upper Extremity: Positive for: Edema Lower Extremity: Positive for: Edema Neurological: Positive for: Other (on ventilator, no response to verbal stimuli) Skin: Positive for: Warm - Medications Active Medications: Active Medications Generic Name Dose Route Start Last Admin Trade Name Freq PRN Reason Stop Dose Admin Acetaminophen 650 mg 09/23/18 19:46 Tylenol 650mg/20.3ml Solution Ud PO Q6 PRN Temperature Fosphenytoin Sodium 200 mg 09/23/18 17:15 09/24/18 01:24 Cerebyx IV 200 mg Q8 JANNIE Administration Pantoprazole Sodium 40 mg/ 100 mls @ 20 mls/hr 09/22/18 17:00 09/24/18 03:49 Sodium Chloride IVPB 20 mls/hr Q5H JANNIE Administration 8 MG/HR Octreotide Acetate 1,250 mcg/ 252.5 mls @ 10.1 mls/hr 09/23/18 11:00 09/23/18 12:22 Sodium Chloride IV 10.1 mls/hr .Q24H JANNIE Administration Protocol 50 MCG/HR Metronidazole 100 mls @ 100 mls/hr 09/23/18 13:15 09/24/18 01:28 Flagyl 500mg/100ml Ns IVPB 100 mls/hr Q8 JANNIE Administration Protocol Vancomycin HCl 750 mg/ Sodium 250 mls @ 166.667 mls/hr 09/23/18 21:00 09/23/18 23:11 Chloride IVPB 166.667 mls/hr Q12 JANNIE Administration Protocol Meropenem 1 gm/ Sodium 100 mls @ 100 mls/hr 09/23/18 14:31 09/24/18 01:32 Chloride IVPB 100 mls/hr Q8 JANNIE Administration Protocol Levetiracetam 1,000 mg/ Sodium 110 mls @ 210 mls/hr 09/23/18 21:00 09/23/18 22:15 Chloride IVPB 210 mls/hr Q12 JANNIE Administration Norepinephrine Bitartrate 8 mg 258 mls @ 4.84 mls/hr 09/23/18 19:36 09/24/18 06:51 / Dextrose IV 09/24/18 19:35 30 mcg/min .Q24H ONE 58.05 mls/hr Administration Protocol 2.5 MCG/MIN Phenylephrine HCl 30 mg/ 253 mls @ 10.12 mls/hr 09/23/18 22:30 09/24/18 06:50 Sodium Chloride IV 09/24/18 22:19 180 mcg/min .Q24H JANNIE 91.08 mls/hr Administration Protocol 20 MCG/MIN Sodium Bicarbonate 100 meq/ 1,100 mls @ 200 mls/hr 09/24/18 06:15 09/24/18 07:00 Dextrose IV 09/24/18 15:50 200 mls/hr .Q5H30M JANNIE Administration Propofol 1,000 mg in 100 mls @ 2.466 mls/hr 09/24/18 08:15 Diprivan IV 09/25/18 08:03 .Q24H JANNIE Protocol 5 MCG/KG/MIN Lactulose 20 gm 09/23/18 11:20 09/24/18 05:30 Enulose NG 20 gm Q4 JANNIE Administration Lorazepam 1 mg 09/23/18 00:12 09/23/18 11:32 Ativan IVP 1 mg Q4 PRN Administration Agitation Rifaximin 550 mg 09/23/18 17:00 09/23/18 16:21 Xifaxan NG 550 mg BID JANNIE Administration Protocol - Patient Studies Lab Studies: Microbiology Studies 09/23/18 13:28 Gram Stain - Final Sputum Lab Studies 09/24/18 09/24/18 09/24/18 Range/Units 04:30 04:30 04:30 WBC (4.8-10.8) K/uL RBC (4.40-5.90) Mil/uL Hgb (12.0-18.0) g/dL Hct (35.0-51.0) % MCV (80.0-94.0) fl MCH (27.0-31.0) pg MCHC (33.0-37.0) g/dL RDW (11.5-14.5) % Plt Count (130-400) K/uL MPV (7.2-11.7) fl Neut % (Auto) (50.0-75.0) % Lymph % (Auto) (20.0-40.0) % Traverse % (Auto) (0.0-10.0) % Eos % (Auto) (0.0-4.0) % Baso % (Auto) (0.0-2.0) % Neut # (Auto) (1.8-7.0) K/uL Lymph # (Auto) (1.0-4.3) K/uL Traverse # (Auto) (0.0-0.8) K/uL Eos # (Auto) (0.0-0.7) K/uL Baso # (Auto) (0.0-0.2) K/uL Neutrophils % (Manual) (42-75) % Band Neutrophils % (0-2) % Lymphocytes % (Manual) (20-50) % Reactive Lymphs % (0-0) % Monocytes % (Manual) (0-10) % Platelet Estimate (NORMAL) Polychromasia Hypochromasia (manual) Poikilocytosis (manual Anisocytosis (manual) PT 24.0 H (9.8-13.1) Seconds INR 2.1 APTT 48.7 H (25.6-37.1) Seconds pCO2 (35-45) mm/Hg pO2 (80-100) mm/Hg HCO3 (21-28) mmol/L ABG pH (7.35-7.45) ABG Total CO2 (22-28) mmol/L ABG O2 Saturation (95-98) % ABG O2 Content (15-23) ML/dL ABG Base Excess (-2.0-3.0) mmol/L ABG Hemoglobin (11.7-17.4) g/dL ABG Carboxyhemoglobin (0.5-1.5) % POC ABG HHb (Measured) (0.0-5.0) % ABG Methemoglobin (0.0-3.0) % ABG O2 Capacity (16-24) mL/dL Joes Test ABG Potassium (3.6-5.2) mmol/L A-a O2 Difference mm/Hg Hgb O2 Saturation (95.0-98.0) % Glucose (75-110) mg/dL Lactate (0.7-2.1) mmol/L Vent Mode Mechanical Rate FiO2 % Tidal Volume PEEP Crit Value Called To Crit Value Called By Crit Value Read Back Blood Gas Notified Time Sodium (132-148) mmol/l Potassium (3.6-5.0) MMOL/L Chloride (98-107) mmol/L Carbon Dioxide (22-30) mmol/L Anion Gap (10-20) BUN (9-20) mg/dl Creatinine (0.8-1.5) mg/dl Est GFR ( Amer) Est GFR (Non-Af Amer) POC Glucose (mg/dL) (65-110) mg/dL Random Glucose (75-110) mg/dL Lactic Acid 10.3 H* (0.7-2.1) mmol/L Calcium (8.4-10.2) mg/dL Phosphorus (2.5-4.5) mg/dl Magnesium (1.6-2.3) MG/DL Total Bilirubin (0.2-1.3) mg/dl AST (17-59) U/L ALT (21-72) U/L Alkaline Phosphatase (38-126) U/L Ammonia 383 H* D (9-33) umol/L Total Creatine Kinase (55-170) U/L Troponin I (0.00-0.120) ng/mL Total Protein (6.3-8.2) G/DL Albumin (3.5-5.0) g/dL Globulin (2.2-3.9) gm/dL Albumin/Globulin Ratio (1.0-2.1) Procalcitonin (0.19-0.49) NG/ML Arterial Blood Potassium (3.6-5.2) mmol/L Vancomycin Trough (5.0-10.0) ug/mL Blood Type Antibody Screen Crossmatch BBK History Checked 09/24/18 09/24/18 09/24/18 Range/Units 04:30 04:30 04:30 WBC 37.8 H* (4.8-10.8) K/uL RBC 2.86 L (4.40-5.90) Mil/uL Hgb 7.9 L (12.0-18.0) g/dL Hct 26.3 L (35.0-51.0) % MCV 91.9 D (80.0-94.0) fl MCH 27.7 (27.0-31.0) pg MCHC 30.1 L (33.0-37.0) g/dL RDW 17.6 H (11.5-14.5) % Plt Count 226 (130-400) K/uL MPV 8.6 (7.2-11.7) fl Neut % (Auto) 91.2 H (50.0-75.0) % Lymph % (Auto) 3.2 L (20.0-40.0) % Traverse % (Auto) 5.3 (0.0-10.0) % Eos % (Auto) 0.0 (0.0-4.0) % Baso % (Auto) 0.3 (0.0-2.0) % Neut # (Auto) 34.5 H (1.8-7.0) K/uL Lymph # (Auto) 1.2 (1.0-4.3) K/uL Traverse # (Auto) 2.0 H (0.0-0.8) K/uL Eos # (Auto) 0.0 (0.0-0.7) K/uL Baso # (Auto) 0.1 (0.0-0.2) K/uL Neutrophils % (Manual) (42-75) % Band Neutrophils % (0-2) % Lymphocytes % (Manual) (20-50) % Reactive Lymphs % (0-0) % Monocytes % (Manual) (0-10) % Platelet Estimate (NORMAL) Polychromasia Hypochromasia (manual) Poikilocytosis (manual Anisocytosis (manual) PT (9.8-13.1) Seconds INR APTT (25.6-37.1) Seconds pCO2 (35-45) mm/Hg pO2 (80-100) mm/Hg HCO3 (21-28) mmol/L ABG pH (7.35-7.45) ABG Total CO2 (22-28) mmol/L ABG O2 Saturation (95-98) % ABG O2 Content (15-23) ML/dL ABG Base Excess (-2.0-3.0) mmol/L ABG Hemoglobin (11.7-17.4) g/dL ABG Carboxyhemoglobin (0.5-1.5) % POC ABG HHb (Measured) (0.0-5.0) % ABG Methemoglobin (0.0-3.0) % ABG O2 Capacity (16-24) mL/dL Jose Test ABG Potassium (3.6-5.2) mmol/L A-a O2 Difference mm/Hg Hgb O2 Saturation (95.0-98.0) % Glucose (75-110) mg/dL Lactate (0.7-2.1) mmol/L Vent Mode Mechanical Rate FiO2 % Tidal Volume PEEP Crit Value Called To Crit Value Called By Crit Value Read Back Blood Gas Notified Time Sodium 148 (132-148) mmol/l Potassium 6.3 H* (3.6-5.0) MMOL/L Chloride 112 H (98-107) mmol/L Carbon Dioxide 19 L (22-30) mmol/L Anion Gap 23 H (10-20) BUN 62 H (9-20) mg/dl Creatinine 3.7 H (0.8-1.5) mg/dl Est GFR ( Amer) 21 Est GFR (Non-Af Amer) 17 POC Glucose (mg/dL) (65-110) mg/dL Random Glucose 188 H (75-110) mg/dL Lactic Acid (0.7-2.1) mmol/L Calcium 6.1 L (8.4-10.2) mg/dL Phosphorus 15.5 H (2.5-4.5) mg/dl Magnesium 2.1 (1.6-2.3) MG/DL Total Bilirubin 2.0 H (0.2-1.3) mg/dl AST 641 H D (17-59) U/L ALT 155 H D (21-72) U/L Alkaline Phosphatase 100 (38-126) U/L Ammonia (9-33) umol/L Total Creatine Kinase (55-170) U/L Troponin I (0.00-0.120) ng/mL Total Protein 5.5 L (6.3-8.2) G/DL Albumin 2.5 L (3.5-5.0) g/dL Globulin 3.0 (2.2-3.9) gm/dL Albumin/Globulin Ratio 0.8 L (1.0-2.1) Procalcitonin (0.19-0.49) NG/ML Arterial Blood Potassium (3.6-5.2) mmol/L Vancomycin Trough 11.5 H (5.0-10.0) ug/mL Blood Type Antibody Screen Crossmatch BBK History Checked 09/24/18 09/23/18 09/23/18 Range/Units 04:05 21:41 21:23 WBC (4.8-10.8) K/uL RBC (4.40-5.90) Mil/uL Hgb (12.0-18.0) g/dL Hct (35.0-51.0) % MCV (80.0-94.0) fl MCH (27.0-31.0) pg MCHC (33.0-37.0) g/dL RDW (11.5-14.5) % Plt Count (130-400) K/uL MPV (7.2-11.7) fl Neut % (Auto) (50.0-75.0) % Lymph % (Auto) (20.0-40.0) % Traverse % (Auto) (0.0-10.0) % Eos % (Auto) (0.0-4.0) % Baso % (Auto) (0.0-2.0) % Neut # (Auto) (1.8-7.0) K/uL Lymph # (Auto) (1.0-4.3) K/uL Traverse # (Auto) (0.0-0.8) K/uL Eos # (Auto) (0.0-0.7) K/uL Baso # (Auto) (0.0-0.2) K/uL Neutrophils % (Manual) (42-75) % Band Neutrophils % (0-2) % Lymphocytes % (Manual) (20-50) % Reactive Lymphs % (0-0) % Monocytes % (Manual) (0-10) % Platelet Estimate (NORMAL) Polychromasia Hypochromasia (manual) Poikilocytosis (manual Anisocytosis (manual) PT (9.8-13.1) Seconds INR APTT (25.6-37.1) Seconds pCO2 58 H (35-45) mm/Hg pO2 90 (80-100) mm/Hg HCO3 10.1 L (21-28) mmol/L ABG pH 6.97 L* (7.35-7.45) ABG Total CO2 15.1 L (22-28) mmol/L ABG O2 Saturation 98.8 H (95-98) % ABG O2 Content (15-23) ML/dL ABG Base Excess -18.8 L (-2.0-3.0) mmol/L ABG Hemoglobin (11.7-17.4) g/dL ABG Carboxyhemoglobin (0.5-1.5) % POC ABG HHb (Measured) (0.0-5.0) % ABG Methemoglobin (0.0-3.0) % ABG O2 Capacity (16-24) mL/dL Jose Test Yes ABG Potassium 7.0 H* (3.6-5.2) mmol/L A-a O2 Difference 194.0 mm/Hg Hgb O2 Saturation (95.0-98.0) % Glucose 194 H (75-110) mg/dL Lactate 9.6 H* (0.7-2.1) mmol/L Vent Mode A/c Mechanical Rate 16 FiO2 50.0 % Tidal Volume 500 PEEP 5 Crit Value Called To Luke muniz Crit Value Called By Stuart Crit Value Read Back Y Blood Gas Notified Time 430 Sodium 143.0 150 H (132-148) mmol/l Potassium 6.8 H* (3.6-5.0) MMOL/L Chloride 116.0 H 118 H (98-107) mmol/L Carbon Dioxide 12 L (22-30) mmol/L Anion Gap 27 H (10-20) BUN 57 H (9-20) mg/dl Creatinine 3.2 H (0.8-1.5) mg/dl Est GFR ( Amer) 25 Est GFR (Non-Af Amer) 21 POC Glucose (mg/dL) 153 H (65-110) mg/dL Random Glucose 144 H (75-110) mg/dL Lactic Acid (0.7-2.1) mmol/L Calcium 6.6 L (8.4-10.2) mg/dL Phosphorus (2.5-4.5) mg/dl Magnesium (1.6-2.3) MG/DL Total Bilirubin (0.2-1.3) mg/dl AST (17-59) U/L ALT (21-72) U/L Alkaline Phosphatase (38-126) U/L Ammonia (9-33) umol/L Total Creatine Kinase (55-170) U/L Troponin I (0.00-0.120) ng/mL Total Protein (6.3-8.2) G/DL Albumin (3.5-5.0) g/dL Globulin (2.2-3.9) gm/dL Albumin/Globulin Ratio (1.0-2.1) Procalcitonin (0.19-0.49) NG/ML Arterial Blood Potassium 7.0 H* (3.6-5.2) mmol/L Vancomycin Trough (5.0-10.0) ug/mL Blood Type Antibody Screen Crossmatch BBK History Checked 09/23/18 09/23/18 09/23/18 Range/Units 14:00 14:00 14:00 WBC (4.8-10.8) K/uL RBC (4.40-5.90) Mil/uL Hgb (12.0-18.0) g/dL Hct (35.0-51.0) % MCV (80.0-94.0) fl MCH (27.0-31.0) pg MCHC (33.0-37.0) g/dL RDW (11.5-14.5) % Plt Count (130-400) K/uL MPV (7.2-11.7) fl Neut % (Auto) (50.0-75.0) % Lymph % (Auto) (20.0-40.0) % Traverse % (Auto) (0.0-10.0) % Eos % (Auto) (0.0-4.0) % Baso % (Auto) (0.0-2.0) % Neut # (Auto) (1.8-7.0) K/uL Lymph # (Auto) (1.0-4.3) K/uL Traverse # (Auto) (0.0-0.8) K/uL Eos # (Auto) (0.0-0.7) K/uL Baso # (Auto) (0.0-0.2) K/uL Neutrophils % (Manual) (42-75) % Band Neutrophils % (0-2) % Lymphocytes % (Manual) (20-50) % Reactive Lymphs % (0-0) % Monocytes % (Manual) (0-10) % Platelet Estimate (NORMAL) Polychromasia Hypochromasia (manual) Poikilocytosis (manual Anisocytosis (manual) PT (9.8-13.1) Seconds INR APTT (25.6-37.1) Seconds pCO2 (35-45) mm/Hg pO2 (80-100) mm/Hg HCO3 (21-28) mmol/L ABG pH (7.35-7.45) ABG Total CO2 (22-28) mmol/L ABG O2 Saturation (95-98) % ABG O2 Content (15-23) ML/dL ABG Base Excess (-2.0-3.0) mmol/L ABG Hemoglobin (11.7-17.4) g/dL ABG Carboxyhemoglobin (0.5-1.5) % POC ABG HHb (Measured) (0.0-5.0) % ABG Methemoglobin (0.0-3.0) % ABG O2 Capacity (16-24) mL/dL Jose Test ABG Potassium (3.6-5.2) mmol/L A-a O2 Difference mm/Hg Hgb O2 Saturation (95.0-98.0) % Glucose (75-110) mg/dL Lactate (0.7-2.1) mmol/L Vent Mode Mechanical Rate FiO2 % Tidal Volume PEEP Crit Value Called To Crit Value Called By Crit Value Read Back Blood Gas Notified Time Sodium 147 (132-148) mmol/l Potassium 6.5 H* D (3.6-5.0) MMOL/L Chloride 120 H (98-107) mmol/L Carbon Dioxide 12 L (22-30) mmol/L Anion Gap 22 H (10-20) BUN 50 H (9-20) mg/dl Creatinine 1.9 H (0.8-1.5) mg/dl Est GFR ( Amer) 45 Est GFR (Non-Af Amer) 38 POC Glucose (mg/dL) (65-110) mg/dL Random Glucose 141 H (75-110) mg/dL Lactic Acid 10.2 H* (0.7-2.1) mmol/L Calcium 6.6 L (8.4-10.2) mg/dL Phosphorus (2.5-4.5) mg/dl Magnesium (1.6-2.3) MG/DL Total Bilirubin 1.2 (0.2-1.3) mg/dl AST 218 H D (17-59) U/L ALT 65 (21-72) U/L Alkaline Phosphatase 108 (38-126) U/L Ammonia (9-33) umol/L Total Creatine Kinase (55-170) U/L Troponin I 0.2540 H* (0.00-0.120) ng/mL Total Protein 5.7 L (6.3-8.2) G/DL Albumin 2.4 L (3.5-5.0) g/dL Globulin 3.3 (2.2-3.9) gm/dL Albumin/Globulin Ratio 0.7 L (1.0-2.1) Procalcitonin (0.19-0.49) NG/ML Arterial Blood Potassium (3.6-5.2) mmol/L Vancomycin Trough (5.0-10.0) ug/mL Blood Type Antibody Screen Crossmatch BBK History Checked 09/23/18 09/23/18 09/23/18 Range/Units 13:52 10:29 10:29 WBC (4.8-10.8) K/uL RBC (4.40-5.90) Mil/uL Hgb (12.0-18.0) g/dL Hct (35.0-51.0) % MCV (80.0-94.0) fl MCH (27.0-31.0) pg MCHC (33.0-37.0) g/dL RDW (11.5-14.5) % Plt Count (130-400) K/uL MPV (7.2-11.7) fl Neut % (Auto) (50.0-75.0) % Lymph % (Auto) (20.0-40.0) % Traverse % (Auto) (0.0-10.0) % Eos % (Auto) (0.0-4.0) % Baso % (Auto) (0.0-2.0) % Neut # (Auto) (1.8-7.0) K/uL Lymph # (Auto) (1.0-4.3) K/uL Traverse # (Auto) (0.0-0.8) K/uL Eos # (Auto) (0.0-0.7) K/uL Baso # (Auto) (0.0-0.2) K/uL Neutrophils % (Manual) (42-75) % Band Neutrophils % (0-2) % Lymphocytes % (Manual) (20-50) % Reactive Lymphs % (0-0) % Monocytes % (Manual) (0-10) % Platelet Estimate (NORMAL) Polychromasia Hypochromasia (manual) Poikilocytosis (manual Anisocytosis (manual) PT (9.8-13.1) Seconds INR APTT (25.6-37.1) Seconds pCO2 26 L (35-45) mm/Hg pO2 176 H (80-100) mm/Hg HCO3 12.2 L (21-28) mmol/L ABG pH 7.20 L (7.35-7.45) ABG Total CO2 11.0 L (22-28) mmol/L ABG O2 Saturation 99.7 H (95-98) % ABG O2 Content 9.8 L (15-23) ML/dL ABG Base Excess -16.4 L (-2.0-3.0) mmol/L ABG Hemoglobin 6.9 L (11.7-17.4) g/dL ABG Carboxyhemoglobin 1.0 (0.5-1.5) % POC ABG HHb (Measured) 0.3 (0.0-5.0) % ABG Methemoglobin 2.1 (0.0-3.0) % ABG O2 Capacity 9.8 L (16-24) mL/dL Jose Test Yes ABG Potassium (3.6-5.2) mmol/L A-a O2 Difference 148.0 mm/Hg Hgb O2 Saturation 96.7 (95.0-98.0) % Glucose (75-110) mg/dL Lactate (0.7-2.1) mmol/L Vent Mode Prvc/ac Mechanical Rate 16 FiO2 50.0 % Tidal Volume 500 PEEP 5 Crit Value Called To Dr. promise page m.d. Crit Value Called By [facility] Crit Value Read Back Y Blood Gas Notified Time 1410 Sodium (132-148) mmol/l Potassium (3.6-5.0) MMOL/L Chloride (98-107) mmol/L Carbon Dioxide (22-30) mmol/L Anion Gap (10-20) BUN (9-20) mg/dl Creatinine (0.8-1.5) mg/dl Est GFR ( Amer) Est GFR (Non-Af Amer) POC Glucose (mg/dL) (65-110) mg/dL Random Glucose (75-110) mg/dL Lactic Acid 9.0 H* (0.7-2.1) mmol/L Calcium (8.4-10.2) mg/dL Phosphorus (2.5-4.5) mg/dl Magnesium (1.6-2.3) MG/DL Total Bilirubin (0.2-1.3) mg/dl AST (17-59) U/L ALT (21-72) U/L Alkaline Phosphatase (38-126) U/L Ammonia 483 H* (9-33) umol/L Total Creatine Kinase (55-170) U/L Troponin I (0.00-0.120) ng/mL Total Protein (6.3-8.2) G/DL Albumin (3.5-5.0) g/dL Globulin (2.2-3.9) gm/dL Albumin/Globulin Ratio (1.0-2.1) Procalcitonin (0.19-0.49) NG/ML Arterial Blood Potassium (3.6-5.2) mmol/L Vancomycin Trough (5.0-10.0) ug/mL Blood Type Antibody Screen Crossmatch BBK History Checked 09/23/18 09/23/18 09/23/18 Range/Units 10:29 10:29 10:29 WBC (4.8-10.8) K/uL RBC (4.40-5.90) Mil/uL Hgb (12.0-18.0) g/dL Hct (35.0-51.0) % MCV (80.0-94.0) fl MCH (27.0-31.0) pg MCHC (33.0-37.0) g/dL RDW (11.5-14.5) % Plt Count (130-400) K/uL MPV (7.2-11.7) fl Neut % (Auto) (50.0-75.0) % Lymph % (Auto) (20.0-40.0) % Traverse % (Auto) (0.0-10.0) % Eos % (Auto) (0.0-4.0) % Baso % (Auto) (0.0-2.0) % Neut # (Auto) (1.8-7.0) K/uL Lymph # (Auto) (1.0-4.3) K/uL Traverse # (Auto) (0.0-0.8) K/uL Eos # (Auto) (0.0-0.7) K/uL Baso # (Auto) (0.0-0.2) K/uL Neutrophils % (Manual) (42-75) % Band Neutrophils % (0-2) % Lymphocytes % (Manual) (20-50) % Reactive Lymphs % (0-0) % Monocytes % (Manual) (0-10) % Platelet Estimate (NORMAL) Polychromasia Hypochromasia (manual) Poikilocytosis (manual Anisocytosis (manual) PT 21.2 H (9.8-13.1) Seconds INR 1.9 APTT 40.0 H (25.6-37.1) Seconds pCO2 (35-45) mm/Hg pO2 (80-100) mm/Hg HCO3 (21-28) mmol/L ABG pH (7.35-7.45) ABG Total CO2 (22-28) mmol/L ABG O2 Saturation (95-98) % ABG O2 Content (15-23) ML/dL ABG Base Excess (-2.0-3.0) mmol/L ABG Hemoglobin (11.7-17.4) g/dL ABG Carboxyhemoglobin (0.5-1.5) % POC ABG HHb (Measured) (0.0-5.0) % ABG Methemoglobin (0.0-3.0) % ABG O2 Capacity (16-24) mL/dL Jose Test ABG Potassium (3.6-5.2) mmol/L A-a O2 Difference mm/Hg Hgb O2 Saturation (95.0-98.0) % Glucose (75-110) mg/dL Lactate (0.7-2.1) mmol/L Vent Mode Mechanical Rate FiO2 % Tidal Volume PEEP Crit Value Called To Crit Value Called By Crit Value Read Back Blood Gas Notified Time Sodium (132-148) mmol/l Potassium (3.6-5.0) MMOL/L Chloride (98-107) mmol/L Carbon Dioxide (22-30) mmol/L Anion Gap (10-20) BUN (9-20) mg/dl Creatinine (0.8-1.5) mg/dl Est GFR ( Amer) Est GFR (Non-Af Amer) POC Glucose (mg/dL) (65-110) mg/dL Random Glucose (75-110) mg/dL Lactic Acid (0.7-2.1) mmol/L Calcium (8.4-10.2) mg/dL Phosphorus (2.5-4.5) mg/dl Magnesium (1.6-2.3) MG/DL Total Bilirubin (0.2-1.3) mg/dl AST (17-59) U/L ALT (21-72) U/L Alkaline Phosphatase (38-126) U/L Ammonia (9-33) umol/L Total Creatine Kinase 856 H (55-170) U/L Troponin I 0.2020 H* (0.00-0.120) ng/mL Total Protein (6.3-8.2) G/DL Albumin (3.5-5.0) g/dL Globulin (2.2-3.9) gm/dL Albumin/Globulin Ratio (1.0-2.1) Procalcitonin 4.11 H (0.19-0.49) NG/ML Arterial Blood Potassium (3.6-5.2) mmol/L Vancomycin Trough (5.0-10.0) ug/mL Blood Type Antibody Screen Crossmatch BBK History Checked 09/23/18 09/22/18 Range/Units 10:29 14:05 WBC 39.0 H* D (4.8-10.8) K/uL RBC 2.58 L (4.40-5.90) Mil/uL Hgb 6.8 L (12.0-18.0) g/dL Hct 22.6 L (35.0-51.0) % MCV 87.5 D (80.0-94.0) fl MCH 26.2 L (27.0-31.0) pg MCHC 30.0 L (33.0-37.0) g/dL RDW 17.3 H (11.5-14.5) % Plt Count 219 (130-400) K/uL MPV 7.5 (7.2-11.7) fl Neut % (Auto) 94.3 H (50.0-75.0) % Lymph % (Auto) 1.2 L (20.0-40.0) % Traverse % (Auto) 3.8 (0.0-10.0) % Eos % (Auto) 0.1 (0.0-4.0) % Baso % (Auto) 0.6 (0.0-2.0) % Neut # (Auto) 36.7 H (1.8-7.0) K/uL Lymph # (Auto) 0.5 L (1.0-4.3) K/uL Traverse # (Auto) 1.5 H (0.0-0.8) K/uL Eos # (Auto) 0.1 (0.0-0.7) K/uL Baso # (Auto) 0.2 (0.0-0.2) K/uL Neutrophils % (Manual) 83 H (42-75) % Band Neutrophils % 12 H* (0-2) % Lymphocytes % (Manual) 1 L (20-50) % Reactive Lymphs % 1 H (0-0) % Monocytes % (Manual) 3 (0-10) % Platelet Estimate Normal (NORMAL) Polychromasia Slight Hypochromasia (manual) Moderate Poikilocytosis (manual Moderate Anisocytosis (manual) Moderate PT (9.8-13.1) Seconds INR APTT (25.6-37.1) Seconds pCO2 (35-45) mm/Hg pO2 (80-100) mm/Hg HCO3 (21-28) mmol/L ABG pH (7.35-7.45) ABG Total CO2 (22-28) mmol/L ABG O2 Saturation (95-98) % ABG O2 Content (15-23) ML/dL ABG Base Excess (-2.0-3.0) mmol/L ABG Hemoglobin (11.7-17.4) g/dL ABG Carboxyhemoglobin (0.5-1.5) % POC ABG HHb (Measured) (0.0-5.0) % ABG Methemoglobin (0.0-3.0) % ABG O2 Capacity (16-24) mL/dL Jose Test ABG Potassium (3.6-5.2) mmol/L A-a O2 Difference mm/Hg Hgb O2 Saturation (95.0-98.0) % Glucose (75-110) mg/dL Lactate (0.7-2.1) mmol/L Vent Mode Mechanical Rate FiO2 % Tidal Volume PEEP Crit Value Called To Crit Value Called By Crit Value Read Back Blood Gas Notified Time Sodium (132-148) mmol/l Potassium (3.6-5.0) MMOL/L Chloride (98-107) mmol/L Carbon Dioxide (22-30) mmol/L Anion Gap (10-20) BUN (9-20) mg/dl Creatinine (0.8-1.5) mg/dl Est GFR ( Amer) Est GFR (Non-Af Amer) POC Glucose (mg/dL) (65-110) mg/dL Random Glucose (75-110) mg/dL Lactic Acid (0.7-2.1) mmol/L Calcium (8.4-10.2) mg/dL Phosphorus (2.5-4.5) mg/dl Magnesium (1.6-2.3) MG/DL Total Bilirubin (0.2-1.3) mg/dl AST (17-59) U/L ALT (21-72) U/L Alkaline Phosphatase (38-126) U/L Ammonia (9-33) umol/L Total Creatine Kinase (55-170) U/L Troponin I (0.00-0.120) ng/mL Total Protein (6.3-8.2) G/DL Albumin (3.5-5.0) g/dL Globulin (2.2-3.9) gm/dL Albumin/Globulin Ratio (1.0-2.1) Procalcitonin (0.19-0.49) NG/ML Arterial Blood Potassium (3.6-5.2) mmol/L Vancomycin Trough (5.0-10.0) ug/mL Blood Type O POSITIVE Antibody Screen Negative Crossmatch See Detail BBK History Checked Patient has bt Laboratory Results - last 24 hr 09/22/18 09/23/18 09/23/18 14:05 10:29 10:29 WBC 39.0 H* D RBC 2.58 L Hgb 6.8 L Hct 22.6 L MCV 87.5 D MCH 26.2 L MCHC 30.0 L RDW 17.3 H Plt Count 219 MPV 7.5 Neut % (Auto) 94.3 H Lymph % (Auto) 1.2 L Traverse % (Auto) 3.8 Eos % (Auto) 0.1 Baso % (Auto) 0.6 Neut # (Auto) 36.7 H Lymph # (Auto) 0.5 L Traverse # (Auto) 1.5 H Eos # (Auto) 0.1 Baso # (Auto) 0.2 Neutrophils % (Manual) 83 H Band Neutrophils % 12 H* Lymphocytes % (Manual) 1 L Reactive Lymphs % 1 H Monocytes % (Manual) 3 Platelet Estimate Normal Polychromasia Slight Hypochromasia (manual) Moderate Poikilocytosis (manual Moderate Anisocytosis (manual) Moderate PT INR APTT pCO2 pO2 HCO3 ABG pH ABG Total CO2 ABG O2 Saturation ABG O2 Content ABG Base Excess ABG Hemoglobin ABG Carboxyhemoglobin POC ABG HHb (Measured) ABG Methemoglobin ABG O2 Capacity Jose Test ABG Potassium A-a O2 Difference Hgb O2 Saturation Glucose Lactate Vent Mode Mechanical Rate FiO2 Tidal Volume PEEP Crit Value Called To Crit Value Called By Crit Value Read Back Blood Gas Notified Time Sodium Potassium Chloride Carbon Dioxide Anion Gap BUN Creatinine Est GFR ( Amer) Est GFR (Non-Af Amer) POC Glucose (mg/dL) Random Glucose Lactic Acid Calcium Phosphorus Magnesium Total Bilirubin AST ALT Alkaline Phosphatase Ammonia Total Creatine Kinase Troponin I Total Protein Albumin Globulin Albumin/Globulin Ratio Procalcitonin 4.11 H Arterial Blood Potassium Vancomycin Trough Blood Type O POSITIVE Antibody Screen Negative Crossmatch See Detail BBK History Checked Patient has bt 09/23/18 09/23/18 09/23/18 10:29 10:29 10:29 WBC RBC Hgb Hct MCV MCH MCHC RDW Plt Count MPV Neut % (Auto) Lymph % (Auto) Traverse % (Auto) Eos % (Auto) Baso % (Auto) Neut # (Auto) Lymph # (Auto) Traverse # (Auto) Eos # (Auto) Baso # (Auto) Neutrophils % (Manual) Band Neutrophils % Lymphocytes % (Manual) Reactive Lymphs % Monocytes % (Manual) Platelet Estimate Polychromasia Hypochromasia (manual) Poikilocytosis (manual Anisocytosis (manual) PT 21.2 H INR 1.9 APTT 40.0 H pCO2 pO2 HCO3 ABG pH ABG Total CO2 ABG O2 Saturation ABG O2 Content ABG Base Excess ABG Hemoglobin ABG Carboxyhemoglobin POC ABG HHb (Measured) ABG Methemoglobin ABG O2 Capacity Jose Test ABG Potassium A-a O2 Difference Hgb O2 Saturation Glucose Lactate Vent Mode Mechanical Rate FiO2 Tidal Volume PEEP Crit Value Called To Crit Value Called By Crit Value Read Back Blood Gas Notified Time Sodium Potassium Chloride Carbon Dioxide Anion Gap BUN Creatinine Est GFR ( Amer) Est GFR (Non-Af Amer) POC Glucose (mg/dL) Random Glucose Lactic Acid Calcium Phosphorus Magnesium Total Bilirubin AST ALT Alkaline Phosphatase Ammonia 483 H* Total Creatine Kinase 856 H Troponin I 0.2020 H* Total Protein Albumin Globulin Albumin/Globulin Ratio Procalcitonin Arterial Blood Potassium Vancomycin Trough Blood Type Antibody Screen Crossmatch BBK History Checked 09/23/18 09/23/18 09/23/18 10:29 13:52 14:00 WBC RBC Hgb Hct MCV MCH MCHC RDW Plt Count MPV Neut % (Auto) Lymph % (Auto) [place] % (Auto) Eos % (Auto) Baso % (Auto) Neut # (Auto) Lymph # (Auto) [place] # (Auto) Eos # (Auto) Baso # (Auto) Neutrophils % (Manual) Band Neutrophils % Lymphocytes % (Manual) Reactive Lymphs % Monocytes % (Manual) Platelet Estimate Polychromasia Hypochromasia (manual) Poikilocytosis (manual Anisocytosis (manual) PT INR APTT pCO2 26 L pO2 176 H HCO3 12.2 L ABG pH 7.20 L ABG Total CO2 11.0 L ABG O2 Saturation 99.7 H ABG O2 Content 9.8 L ABG Base Excess -16.4 L ABG Hemoglobin 6.9 L ABG Carboxyhemoglobin 1.0 POC ABG HHb (Measured) 0.3 ABG Methemoglobin 2.1 ABG O2 Capacity 9.8 L Jose Test Yes ABG Potassium A-a O2 Difference 148.0 Hgb O2 Saturation 96.7 Glucose Lactate Vent Mode Prvc/ac Mechanical Rate 16 FiO2 50.0 Tidal Volume 500 PEEP 5 Crit Value Called To Dr. promise page m.d. Crit Value Called By Ghazal Crit Value Read Back Y Blood Gas Notified Time 1410 Sodium Potassium Chloride Carbon Dioxide Anion Gap BUN Creatinine Est GFR ( Amer) Est GFR (Non-Af Amer) POC Glucose (mg/dL) Random Glucose Lactic Acid 9.0 H* Calcium Phosphorus Magnesium Total Bilirubin AST ALT Alkaline Phosphatase Ammonia Total Creatine Kinase Troponin I 0.2540 H* Total Protein Albumin Globulin Albumin/Globulin Ratio Procalcitonin Arterial Blood Potassium Vancomycin Trough Blood Type Antibody Screen Crossmatch BBK History Checked 09/23/18 09/23/18 09/23/18 14:00 14:00 21:23 WBC RBC Hgb Hct MCV MCH MCHC RDW Plt Count MPV Neut % (Auto) Lymph % (Auto) [place] % (Auto) Eos % (Auto) Baso % (Auto) Neut # (Auto) Lymph # (Auto) [place] # (Auto) Eos # (Auto) Baso # (Auto) Neutrophils % (Manual) Band Neutrophils % Lymphocytes % (Manual) Reactive Lymphs % Monocytes % (Manual) Platelet Estimate Polychromasia Hypochromasia (manual) Poikilocytosis (manual Anisocytosis (manual) PT INR APTT pCO2 pO2 HCO3 ABG pH ABG Total CO2 ABG O2 Saturation ABG O2 Content ABG Base Excess ABG Hemoglobin ABG Carboxyhemoglobin POC ABG HHb (Measured) ABG Methemoglobin ABG O2 Capacity Jose Test ABG Potassium A-a O2 Difference Hgb O2 Saturation Glucose Lactate Vent Mode Mechanical Rate FiO2 Tidal Volume PEEP Crit Value Called To Crit Value Called By Crit Value Read Back Blood Gas Notified Time Sodium 147 Potassium 6.5 H* D Chloride 120 H Carbon Dioxide 12 L Anion Gap 22 H BUN 50 H Creatinine 1.9 H Est GFR ( Amer) 45 Est GFR (Non-Af Amer) 38 POC Glucose (mg/dL) 153 H Random Glucose 141 H Lactic Acid 10.2 H* Calcium 6.6 L Phosphorus Magnesium Total Bilirubin 1.2 AST 218 H D ALT 65 Alkaline Phosphatase 108 Ammonia Total Creatine Kinase Troponin I Total Protein 5.7 L Albumin 2.4 L Globulin 3.3 Albumin/Globulin Ratio 0.7 L Procalcitonin Arterial Blood Potassium Vancomycin Trough Blood Type Antibody Screen Crossmatch BBK History Checked 09/23/18 09/24/18 09/24/18 21:41 04:05 04:30 WBC 37.8 H* RBC 2.86 L Hgb 7.9 L Hct 26.3 L MCV 91.9 D MCH 27.7 MCHC 30.1 L RDW 17.6 H Plt Count 226 MPV 8.6 Neut % (Auto) 91.2 H Lymph % (Auto) 3.2 L [place] % (Auto) 5.3 Eos % (Auto) 0.0 Baso % (Auto) 0.3 Neut # (Auto) 34.5 H Lymph # (Auto) 1.2 [place] # (Auto) 2.0 H Eos # (Auto) 0.0 Baso # (Auto) 0.1 Neutrophils % (Manual) Band Neutrophils % Lymphocytes % (Manual) Reactive Lymphs % Monocytes % (Manual) Platelet Estimate Polychromasia Hypochromasia (manual) Poikilocytosis (manual Anisocytosis (manual) PT INR APTT pCO2 58 H pO2 90 HCO3 10.1 L ABG pH 6.97 L* ABG Total CO2 15.1 L ABG O2 Saturation 98.8 H ABG O2 Content ABG Base Excess -18.8 L ABG Hemoglobin ABG Carboxyhemoglobin POC ABG HHb (Measured) ABG Methemoglobin ABG O2 Capacity Jose Test Yes ABG Potassium 7.0 H* A-a O2 Difference 194.0 Hgb O2 Saturation Glucose 194 H Lactate 9.6 H* Vent Mode A/c Mechanical Rate 16 FiO2 50.0 Tidal Volume 500 PEEP 5 Crit Value Called To Luke muniz Crit Value Called By Stuart Crit Value Read Back Y Blood Gas Notified Time 430 Sodium 150 H 143.0 Potassium 6.8 H* Chloride 118 H 116.0 H Carbon Dioxide 12 L Anion Gap 27 H BUN 57 H Creatinine 3.2 H Est GFR ( Amer) 25 Est GFR (Non-Af Amer) 21 POC Glucose (mg/dL) Random Glucose 144 H Lactic Acid Calcium 6.6 L Phosphorus Magnesium Total Bilirubin AST ALT Alkaline Phosphatase Ammonia Total Creatine Kinase Troponin I Total Protein Albumin Globulin Albumin/Globulin Ratio Procalcitonin Arterial Blood Potassium 7.0 H* Vancomycin Trough Blood Type Antibody Screen Crossmatch BBK History Checked 09/24/18 09/24/18 09/24/18 04:30 04:30 04:30 WBC RBC Hgb Hct MCV MCH MCHC RDW Plt Count MPV Neut % (Auto) Lymph % (Auto) [place] % (Auto) Eos % (Auto) Baso % (Auto) Neut # (Auto) Lymph # (Auto) [place] # (Auto) Eos # (Auto) Baso # (Auto) Neutrophils % (Manual) Band Neutrophils % Lymphocytes % (Manual) Reactive Lymphs % Monocytes % (Manual) Platelet Estimate Polychromasia Hypochromasia (manual) Poikilocytosis (manual Anisocytosis (manual) PT INR APTT pCO2 pO2 HCO3 ABG pH ABG Total CO2 ABG O2 Saturation ABG O2 Content ABG Base Excess ABG Hemoglobin ABG Carboxyhemoglobin POC ABG HHb (Measured) ABG Methemoglobin ABG O2 Capacity Jose Test ABG Potassium A-a O2 Difference Hgb O2 Saturation Glucose Lactate Vent Mode Mechanical Rate FiO2 Tidal Volume PEEP Crit Value Called To Crit Value Called By Crit Value Read Back Blood Gas Notified Time Sodium 148 Potassium 6.3 H* Chloride 112 H Carbon Dioxide 19 L Anion Gap 23 H BUN 62 H Creatinine 3.7 H Est GFR ( Amer) 21 Est GFR (Non-Af Amer) 17 POC Glucose (mg/dL) Random Glucose 188 H Lactic Acid Calcium 6.1 L Phosphorus 15.5 H Magnesium 2.1 Total Bilirubin 2.0 H AST 641 H D ALT 155 H D Alkaline Phosphatase 100 Ammonia 383 H* D Total Creatine Kinase Troponin I Total Protein 5.5 L Albumin 2.5 L Globulin 3.0 Albumin/Globulin Ratio 0.8 L Procalcitonin Arterial Blood Potassium Vancomycin Trough 11.5 H Blood Type Antibody Screen Crossmatch BBK History Checked 09/24/18 09/24/18 04:30 04:30 WBC RBC Hgb Hct MCV MCH MCHC RDW Plt Count MPV Neut % (Auto) Lymph % (Auto) [place] % (Auto) Eos % (Auto) Baso % (Auto) Neut # (Auto) Lymph # (Auto) [place] # (Auto) Eos # (Auto) Baso # (Auto) Neutrophils % (Manual) Band Neutrophils % Lymphocytes % (Manual) Reactive Lymphs % Monocytes % (Manual) Platelet Estimate Polychromasia Hypochromasia (manual) Poikilocytosis (manual Anisocytosis (manual) PT 24.0 H INR 2.1 APTT 48.7 H pCO2 pO2 HCO3 ABG pH ABG Total CO2 ABG O2 Saturation ABG O2 Content ABG Base Excess ABG Hemoglobin ABG Carboxyhemoglobin POC ABG HHb (Measured) ABG Methemoglobin ABG O2 Capacity Jose Test ABG Potassium A-a O2 Difference Hgb O2 Saturation Glucose Lactate Vent Mode Mechanical Rate FiO2 Tidal Volume PEEP Crit Value Called To Crit Value Called By Crit Value Read Back Blood Gas Notified Time Sodium Potassium Chloride Carbon Dioxide Anion Gap BUN Creatinine Est GFR ( Amer) Est GFR (Non-Af Amer) POC Glucose (mg/dL) Random Glucose Lactic Acid 10.3 H* Calcium Phosphorus Magnesium Total Bilirubin AST ALT Alkaline Phosphatase Ammonia Total Creatine Kinase Troponin I Total Protein Albumin Globulin Albumin/Globulin Ratio Procalcitonin Arterial Blood Potassium Vancomycin Trough Blood Type Antibody Screen Crossmatch BBK History Checked Radiology Impressions: Radiology Impressions Chest X-Ray 09/23/18 04:30 IMPRESSION: ETT and NGT as above. Patchy atelectasis and or infiltrate changes and suspected small effusion right lower lung field. Head CT 09/23/18 09:54 IMPRESSION: Overall pattern highly suggestive of anoxic encephalopathy in proper clinical setting. No intracranial hemorrhage. Basilar cisterns are marginally diminished no ney impression the brainstem appreciated at this time however. Continued clinical and CT follow-up advised. Findings discussed with Dr. La with written down read back verification 09/23/2018 1:10 p.m.. Chest X-Ray 09/24/18 05:00 IMPRESSION: Adequate adjustment of endotracheal tube with diminished likely atelectasis right middle lobe. Mild residual remains. Reticular markings appear increased diffusely bilaterally. No pulmonary vascular congestion however. Orogastric termination unclear. Fingerstick Blood Sugar Results: 152 Critical Care Progress Note - Nutrition Nutrition: Nutrition Category Date Time Status NPO Diet [DIET] Diets 09/23/18 Breakfast Active Assessment/Plan - Assessment and Plan (Free Text) Assessment: A/P s/p PEA/cardiac arrest, respiratory failure, aspiration pneumonia, sepsis, ?anoxic encephalopathy, seizer, anemia, ETOH abuse, liver cirrhosis, renal failure, GI bleed - Ventilatory support - Pulmonary toilets - Continue meds - Pressors as needed - Neurology follow up - GI follow up - Renal follow up - Multiorgan failure, extremely poor prognosis critical care 35 min
[2018-09-24] MEDS: levETIRAcetam 1,000 MG in Sodium Chloride 0.9% 100 ML IVPB SCH ×2 (09:10→20:56)
[2018-09-24 09:34] LABS: BANDS 8 % (0-2); LYMPHOCYTE 2 % (20-50); MONOCYTE 5 % (0-10); NEUTROPHIL 85 % (42-75); NUCLEATED RED BLOOD CELL 2 % (0-0); TOTAL CELLS COUNTED 100
[2018-09-24 09:36] LABS: ANISOCYTOSIS SLIGHT; HYPOCHROMIC MODERATE; LARGE PLATELETS PRESENT; OVALOCYTES SLIGHT; PLATELET ESTIMATE NORMAL (NORMAL); POIKILOCYTOSIS SLIGHT; TEARDROP CELLS SLIGHT
[2018-09-24] MEDS ORDERED: Thiamine 100 mg/ml Inj IM SCH (10:15)
[2018-09-24 10:43] LABS: CALCIUM 5.7 mg/dL (8.4-10.2)
[2018-09-24 13:22] VITALS: BMI 25.9
--- NOTE | 2018-09-24 13:35 | CP.PCM.CON ---
History of Present Illness - History of Present Illness History of Present Illness: 53 yr old male who presented after coding and is now in the ICU with multiple seizures and intubated wtih sedation. Last night, patient was noted to have seizures and is now awaiting video EEG. Neurology consult dictated. Plan; 1. Continu edilantin at 400 mg IV bid 2. Load with Keppra 1000 mg now and continue IV bid 3. Continue propofol. 4. Video EEG Our team will follow Thank you DR. Allison Past Patient History - Infectious Disease Hx of Infectious Diseases: None - Tetanus Immunizations Tetanus Immunization: Up to Date - Past Medical History & Family History Past Medical History?: Yes - Past Social History Smoking Status: Light Smoker < 10 Cigarettes Daily Chewing Tobacco Use: No Cigar Use: No Alcohol: > 2 Drinks/Day Drugs: Denies Home Situation {Lives}: Homeless - CARDIAC Hx Congestive Heart Failure: No Hx Hypercholesterolemia: No Hx Hypertension: Yes - PULMONARY Hx Pneumonia: Yes - NEUROLOGICAL Hx Seizures: Yes - HEENT Hx HEENT Problems: No - RENAL Hx Chronic Kidney Disease: No - ENDOCRINE/METABOLIC Hx Endocrine Disorders: No - HEMATOLOGICAL/ONCOLOGICAL Hx Anemia: Yes - INTEGUMENTARY Hx Dermatological Problems: No - MUSCULOSKELETAL/RHEUMATOLOGICAL Hx Fractures: No - GASTROINTESTINAL Hx Gall Bladder Disease: Yes (Cholelithiasis) Hx Gastritis: Yes Hx Pancreatitis: Yes - GENITOURINARY/GYNECOLOGICAL Hx Sexually Transmitted Disorders: No - PSYCHIATRIC Hx Anxiety: Yes - SURGICAL HISTORY Other/Comment: left pinky - ANESTHESIA Hx Anesthesia: Yes Hx Anesthesia Reactions: No Hx Malignant Hyperthermia: No Meds Allergies/Adverse Reactions: Allergies Allergy/AdvReac Type Severity Reaction Status Date / Time aspirin AdvReac GI Bleed Verified 09/22/18 12:52 naproxen AdvReac GI bleed Verified 09/22/18 12:52 NSAIDS (Non-Steroidal AdvReac GI bleed Verified 09/22/18 12:52 Anti-Inflamma - Medications Medications: Current Medications Acetaminophen (Tylenol 650mg/20.3ml Solution Ud) 650 mg PO Q6 PRN PRN Reason: Temperature Fosphenytoin Sodium (Cerebyx) 200 mg IV Q8 [facility] Last Admin: 09/24/18 09:27 Dose: 200 mg Pantoprazole Sodium 40 mg/ (Sodium Chloride) 100 mls @ 20 mls/hr IVPB Q5H [facility] Last Admin: 09/24/18 09:11 Dose: 20 mls/hr Octreotide Acetate 1,250 mcg/ (Sodium Chloride) 252.5 mls @ 10.1 mls/hr IV .Q24H [facility]ANN[facility]; Protocol Last Admin: 09/24/18 11:05 Dose: 10.1 mls/hr Metronidazole (Flagyl 500mg/100ml Ns) 100 mls @ 100 mls/hr IVPB Q8 JANNIE; Protocol Last Admin: 09/24/18 09:09 Dose: 100 mls/hr Vancomycin HCl 750 mg/ Sodium (Chloride) 250 mls @ 166.667 mls/hr IVPB Q12 [facility]ANNIE; Protocol Last Admin: 09/24/18 09:16 Dose: 166.667 mls/hr Meropenem 1 gm/ Sodium (Chloride) 100 mls @ 100 mls/hr IVPB Q8 JANNIE; Protocol Last Admin: 09/24/18 09:13 Dose: 100 mls/hr Levetiracetam 1,000 mg/ Sodium (Chloride) 110 mls @ 210 mls/hr IVPB Q12 [facility]ANN[facility] Last Admin: 09/24/18 09:10 Dose: 210 mls/hr Norepinephrine Bitartrate 8 mg (/ Dextrose) 258 mls @ 4.84 mls/hr IV .Q24H [facility]; Protocol Stop: 09/24/18 19:35 Last Admin: 09/24/18 11:41 Dose: 30 mcg/min, 58.05 mls/hr Phenylephrine HCl 30 mg/ (Sodium Chloride) 253 mls @ 10.12 mls/hr IV .Q24H JANNIE; Protocol Stop: 09/24/18 22:19 Last Admin: 09/24/18 10:04 Dose: 180 mcg/min, 91.08 mls/hr Sodium Bicarbonate 100 meq/ (Dextrose) 1,100 mls @ 200 mls/hr IV .Q5H30M JANNIE Stop: 09/24/18 15:50 Last Admin: 09/24/18 11:05 Dose: 200 mls/hr Propofol (Diprivan) 1,000 mg in 100 mls @ 2.466 mls/hr IV .Q24H JANNIE; Protocol Stop: 09/25/18 08:03 Last Titration: 09/24/18 12:59 Dose: 15 mcg/kg/min, 7.397 mls/hr Thiamine HCl 200 mg/ Sodium (Chloride) 102 mls @ 102 mls/hr IV Q8 JANNIE Fosphenytoin Sodium 1,000 mg/ (Sodium Chloride) 120 mls @ 240 mls/hr IV ONCE ONE Stop: 09/24/18 14:14 Levetiracetam 750 mg/ Sodium (Chloride) 107.5 mls @ 215 mls/hr IVPB ONCE ONE Stop: 09/24/18 13:47 Lactulose (Enulose) 20 gm NG Q4 JANNIE Last Admin: 09/24/18 13:10 Dose: 20 gm Lorazepam (Ativan) 1 mg IVP Q4 PRN PRN Reason: Agitation Last Admin: 09/24/18 10:59 Dose: 1 mg Rifaximin (Xifaxan) 550 mg NG BID [facility]; Protocol Last Admin: 09/24/18 09:17 Dose: 550 mg Results - Vital Signs Recent Vital Signs: Last Vital Signs Temp 99 F 09/24/18 12:56 Pulse 109 H 09/24/18 12:56 Resp 28 H 09/24/18 12:56 BP 108/41 L 09/24/18 12:56 Pulse Ox 99 09/24/18 12:56 - Labs Result Diagrams: 09/24/18 04:30 09/24/18 10:22 Labs: Laboratory Results - last 24 hr 09/22/18 09/23/18 09/23/18 14:05 10:29 13:52 WBC RBC Hgb Hct MCV MCH MCHC RDW Plt Count MPV Neut % (Auto) Lymph % (Auto) [place] % (Auto) Eos % (Auto) Baso % (Auto) Neut # (Auto) Lymph # (Auto) [place] # (Auto) Eos # (Auto) Baso # (Auto) Neutrophils % (Manual) Band Neutrophils % Lymphocytes % (Manual) Monocytes % (Manual) Nucleated RBC % Platelet Estimate Large Platelets Hypochromasia (manual) Poikilocytosis (manual Anisocytosis (manual) Tear Drop Cells Ovalocytes PT INR APTT pCO2 26 L pO2 176 H HCO3 12.2 L ABG pH 7.20 L ABG Total CO2 11.0 L ABG O2 Saturation 99.7 H ABG O2 Content 9.8 L ABG Base Excess -16.4 L ABG Hemoglobin 6.9 L ABG Carboxyhemoglobin 1.0 POC ABG HHb (Measured) 0.3 ABG Methemoglobin 2.1 ABG O2 Capacity 9.8 L Jose Test Yes ABG Potassium A-a O2 Difference 148.0 Hgb O2 Saturation 96.7 Glucose Lactate Vent Mode Prvc/ac Mechanical Rate 16 FiO2 50.0 Tidal Volume 500 PEEP 5 Crit Value Called To Dr. promise page m.d. Crit Value Called By Ghazal Crit Value Read Back Y Blood Gas Notified Time 1410 Sodium Potassium Chloride Carbon Dioxide Anion Gap BUN Creatinine Est GFR ( Amer) Est GFR (Non-Af Amer) POC Glucose (mg/dL) Random Glucose Lactic Acid Calcium Phosphorus Magnesium Total Bilirubin AST ALT Alkaline Phosphatase Ammonia Troponin I Total Protein Albumin Globulin Albumin/Globulin Ratio Procalcitonin 4.11 H Arterial Blood Potassium Vancomycin Trough Blood Type O POSITIVE Antibody Screen Negative Crossmatch See Detail BBK History Checked Patient has bt 09/23/18 09/23/18 09/23/18 14:00 14:00 14:00 WBC RBC Hgb Hct MCV MCH MCHC RDW Plt Count MPV Neut % (Auto) Lymph % (Auto) [place] % (Auto) Eos % (Auto) Baso % (Auto) Neut # (Auto) Lymph # (Auto) [place] # (Auto) Eos # (Auto) Baso # (Auto) Neutrophils % (Manual) Band Neutrophils % Lymphocytes % (Manual) Monocytes % (Manual) Nucleated RBC % Platelet Estimate Large Platelets Hypochromasia (manual) Poikilocytosis (manual Anisocytosis (manual) Tear Drop Cells Ovalocytes PT INR APTT pCO2 pO2 HCO3 ABG pH ABG Total CO2 ABG O2 Saturation ABG O2 Content ABG Base Excess ABG Hemoglobin ABG Carboxyhemoglobin POC ABG HHb (Measured) ABG Methemoglobin ABG O2 Capacity Jose Test ABG Potassium A-a O2 Difference Hgb O2 Saturation Glucose Lactate Vent Mode Mechanical Rate FiO2 Tidal Volume PEEP Crit Value Called To Crit Value Called By Crit Value Read Back Blood Gas Notified Time Sodium 147 Potassium 6.5 H* D Chloride 120 H Carbon Dioxide 12 L Anion Gap 22 H BUN 50 H Creatinine 1.9 H Est GFR ( Amer) 45 Est GFR (Non-Af Amer) 38 POC Glucose (mg/dL) Random Glucose 141 H Lactic Acid 10.2 H* Calcium 6.6 L Phosphorus Magnesium Total Bilirubin 1.2 AST 218 H D ALT 65 Alkaline Phosphatase 108 Ammonia Troponin I 0.2540 H* Total Protein 5.7 L Albumin 2.4 L Globulin 3.3 Albumin/Globulin Ratio 0.7 L Procalcitonin Arterial Blood Potassium Vancomycin Trough Blood Type Antibody Screen Crossmatch BBK History Checked 09/23/18 09/23/18 09/24/18 21:23 21:41 04:05 WBC RBC Hgb Hct MCV MCH MCHC RDW Plt Count MPV Neut % (Auto) Lymph % (Auto) [place] % (Auto) Eos % (Auto) Baso % (Auto) Neut # (Auto) Lymph # (Auto) [place] # (Auto) Eos # (Auto) Baso # (Auto) Neutrophils % (Manual) Band Neutrophils % Lymphocytes % (Manual) Monocytes % (Manual) Nucleated RBC % Platelet Estimate Large Platelets Hypochromasia (manual) Poikilocytosis (manual Anisocytosis (manual) Tear Drop Cells Ovalocytes PT INR APTT pCO2 58 H pO2 90 HCO3 10.1 L ABG pH 6.97 L* ABG Total CO2 15.1 L ABG O2 Saturation 98.8 H ABG O2 Content ABG Base Excess -18.8 L ABG Hemoglobin ABG Carboxyhemoglobin POC ABG HHb (Measured) ABG Methemoglobin ABG O2 Capacity Jose Test Yes ABG Potassium 7.0 H* A-a O2 Difference 194.0 Hgb O2 Saturation Glucose 194 H Lactate 9.6 H* Vent Mode A/c Mechanical Rate 16 FiO2 50.0 Tidal Volume 500 PEEP 5 Crit Value Called To Luke muniz Crit Value Called By 292 Crit Value Read Back Y Blood Gas Notified Time 430 Sodium 150 H 143.0 Potassium 6.8 H* Chloride 118 H 116.0 H Carbon Dioxide 12 L Anion Gap 27 H BUN 57 H Creatinine 3.2 H Est GFR ( Amer) 25 Est GFR (Non-Af Amer) 21 POC Glucose (mg/dL) 153 H Random Glucose 144 H Lactic Acid Calcium 6.6 L Phosphorus Magnesium Total Bilirubin AST ALT Alkaline Phosphatase Ammonia Troponin I Total Protein Albumin Globulin Albumin/Globulin Ratio Procalcitonin Arterial Blood Potassium 7.0 H* Vancomycin Trough Blood Type Antibody Screen Crossmatch BBK History Checked 09/24/18 09/24/18 09/24/18 04:30 04:30 04:30 WBC 37.8 H* RBC 2.86 L Hgb 7.9 L Hct 26.3 L MCV 91.9 D MCH 27.7 MCHC 30.1 L RDW 17.6 H Plt Count 226 MPV 8.6 Neut % (Auto) 91.2 H Lymph % (Auto) 3.2 L [place] % (Auto) 5.3 Eos % (Auto) 0.0 Baso % (Auto) 0.3 Neut # (Auto) 34.5 H Lymph # (Auto) 1.2 [place] # (Auto) 2.0 H Eos # (Auto) 0.0 Baso # (Auto) 0.1 Neutrophils % (Manual) 85 H Band Neutrophils % 8 H Lymphocytes % (Manual) 2 L Monocytes % (Manual) 5 Nucleated RBC % 2 H Platelet Estimate Normal Large Platelets Present Hypochromasia (manual) Moderate Poikilocytosis (manual Slight Anisocytosis (manual) Slight Tear Drop Cells Slight Ovalocytes Slight PT INR APTT pCO2 pO2 HCO3 ABG pH ABG Total CO2 ABG O2 Saturation ABG O2 Content ABG Base Excess ABG Hemoglobin ABG Carboxyhemoglobin POC ABG HHb (Measured) ABG Methemoglobin ABG O2 Capacity Jose Test ABG Potassium A-a O2 Difference Hgb O2 Saturation Glucose Lactate Vent Mode Mechanical Rate FiO2 Tidal Volume PEEP Crit Value Called To Crit Value Called By Crit Value Read Back Blood Gas Notified Time Sodium 148 Potassium 6.3 H* Chloride 112 H Carbon Dioxide 19 L Anion Gap 23 H BUN 62 H Creatinine 3.7 H Est GFR ( Amer) 21 Est GFR (Non-Af Amer) 17 POC Glucose (mg/dL) Random Glucose 188 H Lactic Acid Calcium 6.1 L Phosphorus 15.5 H Magnesium 2.1 Total Bilirubin 2.0 H AST 641 H D ALT 155 H D Alkaline Phosphatase 100 Ammonia Troponin I Total Protein 5.5 L Albumin 2.5 L Globulin 3.0 Albumin/Globulin Ratio 0.8 L Procalcitonin Arterial Blood Potassium Vancomycin Trough 11.5 H Blood Type Antibody Screen Crossmatch BBK History Checked 09/24/18 09/24/18 09/24/18 04:30 04:30 04:30 WBC RBC Hgb Hct MCV MCH MCHC RDW Plt Count MPV Neut % (Auto) Lymph % (Auto) [place] % (Auto) Eos % (Auto) Baso % (Auto) Neut # (Auto) Lymph # (Auto) [place] # (Auto) Eos # (Auto) Baso # (Auto) Neutrophils % (Manual) Band Neutrophils % Lymphocytes % (Manual) Monocytes % (Manual) Nucleated RBC % Platelet Estimate Large Platelets Hypochromasia (manual) Poikilocytosis (manual Anisocytosis (manual) Tear Drop Cells Ovalocytes PT 24.0 H INR 2.1 APTT 48.7 H pCO2 pO2 HCO3 ABG pH ABG Total CO2 ABG O2 Saturation ABG O2 Content ABG Base Excess ABG Hemoglobin ABG Carboxyhemoglobin POC ABG HHb (Measured) ABG Methemoglobin ABG O2 Capacity Jose Test ABG Potassium A-a O2 Difference Hgb O2 Saturation Glucose Lactate Vent Mode Mechanical Rate FiO2 Tidal Volume PEEP Crit Value Called To Crit Value Called By Crit Value Read Back Blood Gas Notified Time Sodium Potassium Chloride Carbon Dioxide Anion Gap BUN Creatinine Est GFR ( Amer) Est GFR (Non-Af Amer) POC Glucose (mg/dL) Random Glucose Lactic Acid 10.3 H* Calcium Phosphorus Magnesium Total Bilirubin AST ALT Alkaline Phosphatase Ammonia 383 H* D Troponin I Total Protein Albumin Globulin Albumin/Globulin Ratio Procalcitonin Arterial Blood Potassium Vancomycin Trough Blood Type Antibody Screen Crossmatch BBK History Checked 09/24/18 10:22 WBC RBC Hgb Hct MCV MCH MCHC RDW Plt Count MPV Neut % (Auto) Lymph % (Auto) [place] % (Auto) Eos % (Auto) Baso % (Auto) Neut # (Auto) Lymph # (Auto) [place] # (Auto) Eos # (Auto) Baso # (Auto) Neutrophils % (Manual) Band Neutrophils % Lymphocytes % (Manual) Monocytes % (Manual) Nucleated RBC % Platelet Estimate Large Platelets Hypochromasia (manual) Poikilocytosis (manual Anisocytosis (manual) Tear Drop Cells Ovalocytes PT INR APTT pCO2 pO2 HCO3 ABG pH ABG Total CO2 ABG O2 Saturation ABG O2 Content ABG Base Excess ABG Hemoglobin ABG Carboxyhemoglobin POC ABG HHb (Measured) ABG Methemoglobin ABG O2 Capacity Jose Test ABG Potassium A-a O2 Difference Hgb O2 Saturation Glucose Lactate Vent Mode Mechanical Rate FiO2 Tidal Volume PEEP Crit Value Called To Crit Value Called By Crit Value Read Back Blood Gas Notified Time Sodium 145 Potassium 5.9 H Chloride 110 H Carbon Dioxide 19 L Anion Gap 22 H BUN 66 H Creatinine 4.0 H Est GFR ( Amer) 19 Est GFR (Non-Af Amer) 16 POC Glucose (mg/dL) Random Glucose 168 H Lactic Acid Calcium 5.7 L* Phosphorus Magnesium Total Bilirubin AST ALT Alkaline Phosphatase Ammonia Troponin I Total Protein Albumin Globulin Albumin/Globulin Ratio Procalcitonin Arterial Blood Potassium Vancomycin Trough Blood Type Antibody Screen Crossmatch BBK History Checked
[2018-09-24] MEDS: Thiamine 200 MG in Sodium Chloride 0.9% 100 ML IV SCH (14:18)
--- NOTE | 2018-09-24 16:33 | CP.PCM.CON ---
History of Present Illness - History of Present Illness History of Present Illness: Nephrology Consultation Note: Assessment: critical Acute Kidney Injury (N17.9) likely due to ATN/shock hyperkalemia hypocalcemia hyperphosphatemia cardiac arrest x 2, hyperammonemia, lactic acidosis, shock requiring pressors, coagulopathy anoxic brain injury with seizures hx of Etoh cirrhosis s/p TIPS, variceal bleed Plan Pt with extremely poor prognosis and likely terminally ill with multi-system organ failure. Hence, not a candidate for renal replacement therapy at this time. Maintain hemodynamics stable. Avoid hypotension. Patient not on ACEI/ARB due to recent DMITRIY Monitor Input/Output, daily weights and renal function with basic metabolic panel supplement for IV calcium 2 gram ordered IV thiamine Dose meds/antibiotics for reduced GFR. Avoid fleets enema/magnesium based laxatives. Avoid nephrotoxins/NSAIDs Glycemic control Further work up/management as per primary team Thanks for allowing me to participate in care of your patient. Will follow patient with you. Please call if any Qs. had d/w team. family not available Dr Lebron Doyle Office: [phone] Chief Complaint; unable Reason for consult: Acute Kidney Injury HPI: Pt is a 53 M with hx of Etoh cirrhosis s/p TIPS, variceal bleed presented with complaints of pain abdomen and found to have severe anemia. his hospital course complicated by cardiac arrest x 2, hyperammonemia, lactic acidosis, shock requiring pressors, coagulopathy and anoxic brain injury with seizures. also with DMITRIY hence renal consulted No recent iodinated contrast exposure. Noted obvious episodes of low BP. ROS: unable to obtain Physical Examination: General Appearance: ill appearing, intubated. unresponsive Vitals reviewed and noted as below Head; Atraumatic, normocephalic ENT: orally iuntubated EYES: Pupils are b/l fixed dilated and non reacting Neck; supple no lymphadenopathy, no thyromegaly or bruit Lungs: Vented Breath sounds bilateral equal and clear Heart: Increased rate. s1s2 normal. No rub or gallop. Extremities: 1+ edema. No varicose veins Neurological: Patient is unresponsive Skin: Warm and dry. Normal turgor. No rash. Palpitation: Normal elasticity for age Abdomen: Abdomen is soft. Bowel sounds +. There is no abdominal tenderness, no guarding/rigidity no organomegaly Psych: unable MSK: no joint tenderness or swelling. Digits and nails normal, no deformity : kidney or bladder not palpable. has barrientos Labs/imaging reviewed. Past medical history, past surgical history, family history, social history, allergy reviewed and noted as below Family hx: no hx of CKD. Rest non-contributory Past Patient History - Infectious Disease Hx of Infectious Diseases: None - Tetanus Immunizations Tetanus Immunization: Up to Date - Past Medical History & Family History Past Medical History?: Yes - Past Social History Smoking Status: Light Smoker < 10 Cigarettes Daily Chewing Tobacco Use: No Cigar Use: No Alcohol: > 2 Drinks/Day Drugs: Denies Home Situation {Lives}: Homeless - CARDIAC Hx Congestive Heart Failure: No Hx Hypercholesterolemia: No Hx Hypertension: Yes - PULMONARY Hx Pneumonia: Yes - NEUROLOGICAL Hx Seizures: Yes - HEENT Hx HEENT Problems: No - RENAL Hx Chronic Kidney Disease: No - ENDOCRINE/METABOLIC Hx Endocrine Disorders: No - HEMATOLOGICAL/ONCOLOGICAL Hx Anemia: Yes - INTEGUMENTARY Hx Dermatological Problems: No - MUSCULOSKELETAL/RHEUMATOLOGICAL Hx Fractures: No - GASTROINTESTINAL Hx Gall Bladder Disease: Yes (Cholelithiasis) Hx Gastritis: Yes Hx Pancreatitis: Yes - GENITOURINARY/GYNECOLOGICAL Hx Sexually Transmitted Disorders: No - PSYCHIATRIC Hx Anxiety: Yes - SURGICAL HISTORY Other/Comment: left pinky - ANESTHESIA Hx Anesthesia: Yes Hx Anesthesia Reactions: No Hx Malignant Hyperthermia: No Meds Allergies/Adverse Reactions: Allergies Allergy/AdvReac Type Severity Reaction Status Date / Time aspirin AdvReac GI Bleed Verified 09/22/18 12:52 naproxen AdvReac GI bleed Verified 09/22/18 12:52 NSAIDS (Non-Steroidal AdvReac GI bleed Verified 09/22/18 12:52 Anti-Inflamma - Medications Medications: Current Medications Acetaminophen (Tylenol 650mg/20.3ml Solution Ud) 650 mg PO Q6 PRN PRN Reason: Temperature Fosphenytoin Sodium (Cerebyx) 200 mg IV Q8 JANNIE Last Admin: 09/24/18 09:27 Dose: 200 mg Pantoprazole Sodium 40 mg/ (Sodium Chloride) 100 mls @ 20 mls/hr IVPB Q5H JANNIE Last Admin: 09/24/18 14:21 Dose: 20 mls/hr Octreotide Acetate 1,250 mcg/ (Sodium Chloride) 252.5 mls @ 10.1 mls/hr IV .Q24H JANNIE; Protocol Last Admin: 09/24/18 11:05 Dose: 10.1 mls/hr Metronidazole (Flagyl 500mg/100ml Ns) 100 mls @ 100 mls/hr IVPB Q8 JANNIE; Protocol Last Admin: 09/24/18 09:09 Dose: 100 mls/hr Vancomycin HCl 750 mg/ Sodium (Chloride) 250 mls @ 166.667 mls/hr IVPB Q12 JANNIE; Protocol Last Admin: 09/24/18 09:16 Dose: 166.667 mls/hr Meropenem 1 gm/ Sodium (Chloride) 100 mls @ 100 mls/hr IVPB Q8 JANNIE; Protocol Last Admin: 09/24/18 09:13 Dose: 100 mls/hr Levetiracetam 1,000 mg/ Sodium (Chloride) 110 mls @ 210 mls/hr IVPB Q12 JANNIE Last Admin: 09/24/18 09:10 Dose: 210 mls/hr Norepinephrine Bitartrate 8 mg (/ Dextrose) 258 mls @ 4.84 mls/hr IV .Q24H ONE; Protocol Stop: 09/24/18 19:35 Last Admin: 09/24/18 11:41 Dose: 30 mcg/min, 58.05 mls/hr Phenylephrine HCl 30 mg/ (Sodium Chloride) 253 mls @ 10.12 mls/hr IV .Q24H JANNIE; Protocol Stop: 09/24/18 22:19 Last Admin: 09/24/18 10:04 Dose: 180 mcg/min, 91.08 mls/hr Propofol (Diprivan) 1,000 mg in 100 mls @ 2.466 mls/hr IV .Q24H JANNIE; Protocol Stop: 09/25/18 08:03 Last Titration: 09/24/18 12:59 Dose: 15 mcg/kg/min, 7.397 mls/hr Thiamine HCl 200 mg/ Sodium (Chloride) 102 mls @ 102 mls/hr IV Q8 JANNIE Last Admin: 09/24/18 14:18 Dose: 102 mls/hr Calcium Gluconate 2,000 meq/ (Sodium Chloride) 4,401.0752 mls @ 100 mls/hr IVPB ONCE ONE Stop: 09/26/18 11:04 Lactulose (Enulose) 20 gm NG Q4 JANNIE Last Admin: 09/24/18 13:10 Dose: 20 gm Lorazepam (Ativan) 1 mg IVP Q4 PRN PRN Reason: Agitation Last Admin: 09/24/18 10:59 Dose: 1 mg Rifaximin (Xifaxan) 550 mg NG BID [facility]; Protocol Last Admin: 09/24/18 09:17 Dose: 550 mg Results - Vital Signs Recent Vital Signs: Last Vital Signs Temp 98.0 F 09/24/18 16:00 Pulse 105 H 09/24/18 16:00 Resp 28 H 09/24/18 16:00 BP 98/38 L 09/24/18 16:00 Pulse Ox 97 09/24/18 16:00 - Labs Result Diagrams: 09/24/18 04:30 09/24/18 10:22 Labs: Laboratory Results - last 24 hr 09/22/18 09/23/18 09/23/18 14:05 10:29 21:23 WBC RBC Hgb Hct MCV MCH MCHC RDW Plt Count MPV Neut % (Auto) Lymph % (Auto) Mclennan % (Auto) Eos % (Auto) Baso % (Auto) Neut # (Auto) Lymph # (Auto) Mclennan # (Auto) Eos # (Auto) Baso # (Auto) Neutrophils % (Manual) Band Neutrophils % Lymphocytes % (Manual) Monocytes % (Manual) Nucleated RBC % Platelet Estimate Large Platelets Hypochromasia (manual) Poikilocytosis (manual Anisocytosis (manual) Tear Drop Cells Ovalocytes PT INR APTT pCO2 pO2 HCO3 ABG pH ABG Total CO2 ABG O2 Saturation ABG Base Excess Jose Test ABG Potassium A-a O2 Difference Glucose Lactate Vent Mode Mechanical Rate FiO2 Tidal Volume PEEP Crit Value Called To Crit Value Called By Crit Value Read Back Blood Gas Notified Time Sodium Potassium Chloride Carbon Dioxide Anion Gap BUN Creatinine Est GFR ( Amer) Est GFR (Non-Af Amer) POC Glucose (mg/dL) 153 H Random Glucose Lactic Acid Calcium Phosphorus Magnesium Total Bilirubin AST ALT Alkaline Phosphatase Ammonia Total Protein Albumin Globulin Albumin/Globulin Ratio Procalcitonin 4.11 H Arterial Blood Potassium Vancomycin Trough Blood Type O POSITIVE Antibody Screen Negative Crossmatch See Detail BBK History Checked Patient has bt 09/23/18 09/24/18 09/24/18 21:41 04:05 04:30 WBC 37.8 H* RBC 2.86 L Hgb 7.9 L Hct 26.3 L MCV 91.9 D MCH 27.7 MCHC 30.1 L RDW 17.6 H Plt Count 226 MPV 8.6 Neut % (Auto) 91.2 H Lymph % (Auto) 3.2 L Mclennan % (Auto) 5.3 Eos % (Auto) 0.0 Baso % (Auto) 0.3 Neut # (Auto) 34.5 H Lymph # (Auto) 1.2 Mclennan # (Auto) 2.0 H Eos # (Auto) 0.0 Baso # (Auto) 0.1 Neutrophils % (Manual) 85 H Band Neutrophils % 8 H Lymphocytes % (Manual) 2 L Monocytes % (Manual) 5 Nucleated RBC % 2 H Platelet Estimate Normal Large Platelets Present Hypochromasia (manual) Moderate Poikilocytosis (manual Slight Anisocytosis (manual) Slight Tear Drop Cells Slight Ovalocytes Slight PT INR APTT pCO2 58 H pO2 90 HCO3 10.1 L ABG pH 6.97 L* ABG Total CO2 15.1 L ABG O2 Saturation 98.8 H ABG Base Excess -18.8 L Jose Test Yes ABG Potassium 7.0 H* A-a O2 Difference 194.0 Glucose 194 H Lactate 9.6 H* Vent Mode A/c Mechanical Rate 16 FiO2 50.0 Tidal Volume 500 PEEP 5 Crit Value Called To Luke muniz Crit Value Called By 292 Crit Value Read Back Y Blood Gas Notified Time 430 Sodium 150 H 143.0 Potassium 6.8 H* Chloride 118 H 116.0 H Carbon Dioxide 12 L Anion Gap 27 H BUN 57 H Creatinine 3.2 H Est GFR ( Amer) 25 Est GFR (Non-Af Amer) 21 POC Glucose (mg/dL) Random Glucose 144 H Lactic Acid Calcium 6.6 L Phosphorus Magnesium Total Bilirubin AST ALT Alkaline Phosphatase Ammonia Total Protein Albumin Globulin Albumin/Globulin Ratio Procalcitonin Arterial Blood Potassium 7.0 H* Vancomycin Trough Blood Type Antibody Screen Crossmatch BBK History Checked 09/24/18 09/24/18 09/24/18 04:30 04:30 04:30 WBC RBC Hgb Hct MCV MCH MCHC RDW Plt Count MPV Neut % (Auto) Lymph % (Auto) Mclennan % (Auto) Eos % (Auto) Baso % (Auto) Neut # (Auto) Lymph # (Auto) Mclennan # (Auto) Eos # (Auto) Baso # (Auto) Neutrophils % (Manual) Band Neutrophils % Lymphocytes % (Manual) Monocytes % (Manual) Nucleated RBC % Platelet Estimate Large Platelets Hypochromasia (manual) Poikilocytosis (manual Anisocytosis (manual) Tear Drop Cells Ovalocytes PT INR APTT pCO2 pO2 HCO3 ABG pH ABG Total CO2 ABG O2 Saturation ABG Base Excess Jose Test ABG Potassium A-a O2 Difference Glucose Lactate Vent Mode Mechanical Rate FiO2 Tidal Volume PEEP Crit Value Called To Crit Value Called By Crit Value Read Back Blood Gas Notified Time Sodium 148 Potassium 6.3 H* Chloride 112 H Carbon Dioxide 19 L Anion Gap 23 H BUN 62 H Creatinine 3.7 H Est GFR ( Amer) 21 Est GFR (Non-Af Amer) 17 POC Glucose (mg/dL) Random Glucose 188 H Lactic Acid Calcium 6.1 L Phosphorus 15.5 H Magnesium 2.1 Total Bilirubin 2.0 H AST 641 H D ALT 155 H D Alkaline Phosphatase 100 Ammonia 383 H* D Total Protein 5.5 L Albumin 2.5 L Globulin 3.0 Albumin/Globulin Ratio 0.8 L Procalcitonin Arterial Blood Potassium Vancomycin Trough 11.5 H Blood Type Antibody Screen Crossmatch BBK History Checked 09/24/18 09/24/18 09/24/18 04:30 04:30 10:22 WBC RBC Hgb Hct MCV MCH MCHC RDW Plt Count MPV Neut % (Auto) Lymph % (Auto) Mclennan % (Auto) Eos % (Auto) Baso % (Auto) Neut # (Auto) Lymph # (Auto) Mclennan # (Auto) Eos # (Auto) Baso # (Auto) Neutrophils % (Manual) Band Neutrophils % Lymphocytes % (Manual) Monocytes % (Manual) Nucleated RBC % Platelet Estimate Large Platelets Hypochromasia (manual) Poikilocytosis (manual Anisocytosis (manual) Tear Drop Cells Ovalocytes PT 24.0 H INR 2.1 APTT 48.7 H pCO2 pO2 HCO3 ABG pH ABG Total CO2 ABG O2 Saturation ABG Base Excess Jose Test ABG Potassium A-a O2 Difference Glucose Lactate Vent Mode Mechanical Rate FiO2 Tidal Volume PEEP Crit Value Called To Crit Value Called By Crit Value Read Back Blood Gas Notified Time Sodium 145 Potassium 5.9 H Chloride 110 H Carbon Dioxide 19 L Anion Gap 22 H BUN 66 H Creatinine 4.0 H Est GFR ( Amer) 19 Est GFR (Non-Af Amer) 16 POC Glucose (mg/dL) Random Glucose 168 H Lactic Acid 10.3 H* Calcium 5.7 L* Phosphorus Magnesium Total Bilirubin AST ALT Alkaline Phosphatase Ammonia Total Protein Albumin Globulin Albumin/Globulin Ratio Procalcitonin Arterial Blood Potassium Vancomycin Trough Blood Type Antibody Screen Crossmatch BBK History Checked
--- NOTE | 2018-09-24 21:12 | PN ---
DATE: 09/24/2018 DAILY PROGRESS NOTE SUBJECTIVE: The patient is seen today, 09/24/2018. He is not responsive. PHYSICAL EXAMINATION: VITAL SIGNS: Blood pressure is 127/51, temperature 99.5, respiratory rate is 24, and pulse is 111. HEENT: Pupils are very sluggishly reactive. NECK: Supple. No JVD. No carotid bruits. No lymph nodes. No thyromegaly. CHEST AND LUNGS: Bilateral symmetrical expansion. Good air exchange. No rales. Decreased air entry in both lower lung mendoza. CARDIOVASCULAR SYSTEM: PMI not localized. S1 and S2. No additional sounds. ABDOMEN: Decreased bowel sounds. No tenderness. No organomegaly. EXTREMITIES: No cyanosis, no clubbing, and no edema. CENTRAL NERVOUS SYSTEM: The patient is lethargic. The patient is not responsive with absent reflexes. ASSESSMENT: 1. Status post cardiac arrest, likely anoxic encephalopathy. 2. History of hepatic encephalopathy. 3. Possible aspiration pneumonia. 4. Acute renal failure. PLAN: Continue current antibiotics and follow recommendations of cad cam programmer as well as Infectious Disease and urologist. Follow recommendation of mechanical design engineer. Poor prognosis. Dm Nicholson MD
[2018-09-24 21:13] LABS: ABG ALLEN TEST YES; ARTERIAL BLOOD GAS HCO3 16.3 mmol/L (21-28); ARTERIAL BLOOD GAS O2 SAT 99.9 % (95-98); ARTERIAL BLOOD GAS PCO2 39 mm/Hg (35-45); ARTERIAL BLOOD GAS PH 7.22 (7.35-7.45); ARTERIAL BLOOD GAS PO2 113 mm/Hg (80-100); ARTERIAL BLOOD GAS TCO2 17.2 mmol/L (22-28)
[2018-09-24] MEDS: Sodium Bicarbonate 8.4% 100 MEQ in Dextrose 5%/0.9% NS 1,000 ML IV SCH (23:23)
[2018-09-24] MEDS: Lactulose 10 gm/15 ml (Rectal Use) PR SCH (23:25)
[2018-09-24] MEDS: Phenylephrine 60 MG in Sodium Chloride 0.9% 250 ML IV SCH (23:27)
[2018-09-25] MEDS: metroNIDAZOLE 500mg/100ml NS 100 ML IVPB SCH ×3 (00:27→16:35)
[2018-09-25] MEDS: Meropenem 1 GM in Sodium Chloride 0.9% 100 ML IVPB SCH ×3 (00:29→16:36)
[2018-09-25] MEDS: Fosphenytoin 100 mg/2 ml Inj IV SCH ×3 (01:26→16:34)
[2018-09-25] MEDS: Thiamine 200 MG in Sodium Chloride 0.9% 100 ML IV SCH ×3 (01:33→16:31)
[2018-09-25] MEDS: Pantoprazole 40 MG in Sodium Chloride 0.9% 100 ML IVPB SCH ×4 (02:43→21:53)
[2018-09-25] MEDS: Sodium Bicarbonate 8.4% 100 MEQ in Dextrose 5%/0.9% NS 1,000 ML IV SCH (04:43)
[2018-09-25 05:20] LABS: ABG ALLEN TEST YES; ARTERIAL BLOOD GAS HCO3 21.9 mmol/L (21-28); ARTERIAL BLOOD GAS O2 SAT 98.4 % (95-98); ARTERIAL BLOOD GAS PCO2 39 mm/Hg (35-45); ARTERIAL BLOOD GAS PH 7.35 (7.35-7.45); ARTERIAL BLOOD GAS PO2 90 mm/Hg (80-100); ARTERIAL BLOOD GAS TCO2 22.7 mmol/L (22-28)
[2018-09-25] MEDS: Lactulose 10 gm/15 ml (Rectal Use) PR SCH ×2 (05:30→07:46)
[2018-09-25] MEDS ORDERED: Insulin Regular 100 units/ml SC STA (05:30)
[2018-09-25] MEDS: Phenylephrine 60 MG in Sodium Chloride 0.9% 250 ML IV SCH ×4 (06:22→20:07)
[2018-09-25 06:48] LABS: ALB/GLOB RATIO 0.8 (1.0-2.1)
[2018-09-25 07:00] LABS: CALCIUM 4.6 mg/dL (8.4-10.2)
[2018-09-25] MEDS ORDERED: Sodium Bicarbonate 8.4% 100 MEQ in Dextrose 5%/0.9% NS 1,000 ML IV SCH (07:07)
--- NOTE | 2018-09-25 07:33 | CP.CCUPN ---
CCU Subjective - Physician Review Events Since Last Encounter (Free Text): Patient on ventilator, on PRVC TV 500, RR 28, FIO2 80%, on pressors, no response to verbal stimuli, events reviewed CCU Objective - Vital Signs / Intake & Output Vital Signs (Last 4 hours): Vital Signs Temp Pulse Resp BP Pulse Ox 09/25/18 06:00 28 H 94/41 L 100 09/25/18 05:00 103 H 28 H 103/42 L 100 09/25/18 04:00 97.6 F 102 H 28 H 105/41 L 100 Intake and Output (Last 8hrs): Intake & Output 09/24/18 09/25/18 09/25/18 22:59 06:59 14:59 Intake Total 2130 1567 6 Output Total 300 190 Balance 1830 1377 6 Weight 195 lb Intake: IV 1280 1077 6 Intake, Piggyback 850 490 Tube Feeding 0 Output: Urine 300 190 Urethral (Ty) 300 190 - Physical Exam Head: Positive for: Atraumatic, Normocephalic Conjunctiva: Positive for: Normal Mouth: Positive for: Moist Mucous Membranes Nose (External): Positive for: Atraumatic Neck: Positive for: Normal Range of Motion Respiratory/Chest: Positive for: Rhonchi Abdomen: Positive for: Normal Bowel Sounds Upper Extremity: Positive for: Edema Lower Extremity: Positive for: Edema Neurological: Positive for: Other (on ventilator, no response to verbal stimuli) Skin: Positive for: Warm - Medications Active Medications: Active Medications Generic Name Dose Route Start Last Admin Trade Name Freq PRN Reason Stop Dose Admin Acetaminophen 650 mg 09/23/18 19:46 Tylenol 650mg/20.3ml Solution Ud PO Q6 PRN Temperature Fosphenytoin Sodium 200 mg 09/23/18 17:15 09/25/18 01:26 Cerebyx IV 200 mg Q8 JANNIE Administration Pantoprazole Sodium 40 mg/ 100 mls @ 20 mls/hr 09/22/18 17:00 09/25/18 02:43 Sodium Chloride IVPB 20 mls/hr Q5H JANNIE Administration 8 MG/HR Octreotide Acetate 1,250 mcg/ 252.5 mls @ 10.1 mls/hr 09/23/18 11:00 09/24/18 11:05 Sodium Chloride IV 10.1 mls/hr .Q24H JANNIE Administration Protocol 50 MCG/HR Metronidazole 100 mls @ 100 mls/hr 09/23/18 13:15 09/25/18 00:27 Flagyl 500mg/100ml Ns IVPB 100 mls/hr Q8 JANNIE Administration Protocol Vancomycin HCl 750 mg/ Sodium 250 mls @ 166.667 mls/hr 09/23/18 21:00 09/24/18 20:57 Chloride IVPB 166.667 mls/hr Q12 JANNIE Administration Protocol Meropenem 1 gm/ Sodium 100 mls @ 100 mls/hr 09/23/18 14:31 09/25/18 00:29 Chloride IVPB 100 mls/hr Q8 JANNIE Administration Protocol Levetiracetam 1,000 mg/ Sodium 110 mls @ 210 mls/hr 09/23/18 21:00 09/24/18 20:56 Chloride IVPB 210 mls/hr Q12 JANNIE Administration Propofol 1,000 mg in 100 mls @ 2.466 mls/hr 09/24/18 08:15 09/24/18 12:59 Diprivan IV 09/25/18 08:03 15 mcg/kg/min .Q24H JANNIE 7.397 mls/hr Titration Protocol 5 MCG/KG/MIN Thiamine HCl 200 mg/ Sodium 102 mls @ 102 mls/hr 09/24/18 10:30 09/25/18 01:3 3 Chloride IV 102 mls/hr Q8 JANNIE Administration Phenylephrine HCl 60 mg/ 256 mls @ 46.08 mls/hr 09/24/18 21:15 09/25/18 06:22 Sodium Chloride IV 09/25/18 21:01 160 mcg/min .Q5H34M JANNIE 40.96 mls/hr Administration Protocol 180 MCG/MIN Norepinephrine Bitartrate 16 266 mls @ 24.94 mls/hr 09/25/18 04:53 09/25/18 07:31 mg/ Dextrose IV 09/25/18 15:32 27.5 mcg/min .[id number] ONE 27.43 mls/hr Titration Protocol 25 MCG/MIN Sodium Bicarbonate 100 meq/ 1,100 mls @ 100 mls/hr 09/25/18 07:07 Dextrose/Sodium Chloride IV 09/25/18 21:29 .Q11H JANNIE Calcium Chloride 1,000 mg/ 110 mls @ 100 mls/hr 09/25/18 07:30 Sodium Chloride IV 09/25/18 08:30 .Q1H6M JANNIE Lactulose 20 gm 09/23/18 11:20 09/24/18 20:56 Enulose NG 20 gm Q4 JANNIE Administration Lorazepam 1 mg 09/23/18 00:12 09/24/18 10:59 Ativan IVP 1 mg Q4 PRN Administration Agitation Rifaximin 550 mg 09/23/18 17:00 09/24/18 16:44 Xifaxan NG 550 mg BID JANNIE Administration Protocol - Patient Studies Lab Studies: Microbiology Studies 09/23/18 14:26 MRSA Culture (Admit) - Final Naris MRSA NOT DETECTED 09/23/18 13:28 Gram Stain - Final Sputum Sputum Culture - Preliminary Gram Negative Jonh Gram Positive Cocci 09/23/18 10:30 Blood Culture - Preliminary Blood-Venous NO GROWTH AFTER 24 HOURS 09/23/18 10:41 Blood Culture - Preliminary Blood-Venous NO GROWTH AFTER 24 HOURS Lab Studies 09/25/18 09/25/18 09/25/18 Range/Units 05:07 04:30 04:30 Neutrophils % (Manual) (42-75) % Band Neutrophils % (0-2) % Lymphocytes % (Manual) (20-50) % Monocytes % (Manual) (0-10) % Nucleated RBC % (0-0) % Platelet Estimate (NORMAL) Large Platelets Hypochromasia (manual) Poikilocytosis (manual Anisocytosis (manual) Tear Drop Cells Ovalocytes pCO2 39 (35-45) mm/Hg pO2 90 (80-100) mm/Hg HCO3 21.9 (21-28) mmol/L ABG pH 7.35 (7.35-7.45) ABG Total CO2 22.7 (22-28) mmol/L ABG O2 Saturation 98.4 H (95-98) % ABG Base Excess -3.8 L (-2.0-3.0) mmol/L Jose Test Yes ABG Potassium 4.3 (3.6-5.2) mmol/L A-a O2 Difference 432.0 mm/Hg Glucose 325 H (75-110) mg/dL Lactate 6.3 H* (0.7-2.1) mmol/L Vent Mode A/c Mechanical Rate 28 FiO2 80.0 % Tidal Volume 500 PEEP 5 Blood Gas Comments Crit Value Called To Luke raymundo Crit Value Called By 333 Crit Value Read Back Y Blood Gas Notified Time 519 Sodium 142.0 144 (132-148) mmol/l Potassium 4.1 (3.6-5.0) MMOL/L Chloride 107.0 106 (98-107) mmol/L Carbon Dioxide 24 (22-30) mmol/L Anion Gap 18 (10-20) BUN 87 H (9-20) mg/dl Creatinine 4.6 H (0.8-1.5) mg/dl Est GFR ( Amer) 16 Est GFR (Non-Af Amer) 14 Random Glucose 296 H (75-110) mg/dL Calcium 4.6 L* (8.4-10.2) mg/dL Total Bilirubin 4.3 H (0.2-1.3) mg/dl AST 2649 H (17-59) U/L ALT 564 H D (21-72) U/L Alkaline Phosphatase 95 (38-126) U/L Ammonia 58 H D (9-33) umol/L Total Protein 4.5 L (6.3-8.2) G/DL Albumin 2.0 L (3.5-5.0) g/dL Globulin 2.5 (2.2-3.9) gm/dL Albumin/Globulin Ratio 0.8 L (1.0-2.1) Arterial Blood Potassium 4.3 (3.6-5.2) mmol/L Crossmatch 09/24/18 09/24/18 09/24/18 Range/Units 21:07 10:22 04:30 Neutrophils % (Manual) 85 H (42-75) % Band Neutrophils % 8 H (0-2) % Lymphocytes % (Manual) 2 L (20-50) % Monocytes % (Manual) 5 (0-10) % Nucleated RBC % 2 H (0-0) % Platelet Estimate Normal (NORMAL) Large Platelets Present Hypochromasia (manual) Moderate Poikilocytosis (manual Slight Anisocytosis (manual) Slight Tear Drop Cells Slight Ovalocytes Slight pCO2 39 (35-45) mm/Hg pO2 113 H (80-100) mm/Hg HCO3 16.3 L (21-28) mmol/L ABG pH 7.22 L (7.35-7.45) ABG Total CO2 17.2 L (22-28) mmol/L ABG O2 Saturation 99.9 H (95-98) % ABG Base Excess -11.1 L (-2.0-3.0) mmol/L Jose Test Yes ABG Potassium 5.1 (3.6-5.2) mmol/L A-a O2 Difference 409.0 mm/Hg Glucose 308 H (75-110) mg/dL Lactate 12.1 H* (0.7-2.1) mmol/L Vent Mode Prvc/ac Mechanical Rate 28 FiO2 80.0 % Tidal Volume 500 PEEP 5 Blood Gas Comments Lac=12.1 Crit Value Called To gina Joe Crit Value Called By 22 Crit Value Read Back Y Blood Gas Notified Time 2112 Sodium 140.0 145 (132-148) mmol/l Potassium 5.9 H (3.6-5.0) MMOL/L Chloride 104.0 110 H (98-107) mmol/L Carbon Dioxide 19 L (22-30) mmol/L Anion Gap 22 H (10-20) BUN 66 H (9-20) mg/dl Creatinine 4.0 H (0.8-1.5) mg/dl Est GFR ( Amer) 19 Est GFR (Non-Af Amer) 16 Random Glucose 168 H (75-110) mg/dL Calcium 5.7 L* (8.4-10.2) mg/dL Total Bilirubin (0.2-1.3) mg/dl AST (17-59) U/L ALT (21-72) U/L Alkaline Phosphatase (38-126) U/L Ammonia (9-33) umol/L Total Protein (6.3-8.2) G/DL Albumin (3.5-5.0) g/dL Globulin (2.2-3.9) gm/dL Albumin/Globulin Ratio (1.0-2.1) Arterial Blood Potassium 5.1 (3.6-5.2) mmol/L Crossmatch 09/22/18 Range/Units 14:05 Neutrophils % (Manual) (42-75) % Band Neutrophils % (0-2) % Lymphocytes % (Manual) (20-50) % Monocytes % (Manual) (0-10) % Nucleated RBC % (0-0) % Platelet Estimate (NORMAL) Large Platelets Hypochromasia (manual) Poikilocytosis (manual Anisocytosis (manual) Tear Drop Cells Ovalocytes pCO2 (35-45) mm/Hg pO2 (80-100) mm/Hg HCO3 (21-28) mmol/L ABG pH (7.35-7.45) ABG Total CO2 (22-28) mmol/L ABG O2 Saturation (95-98) % ABG Base Excess (-2.0-3.0) mmol/L Jose Test ABG Potassium (3.6-5.2) mmol/L A-a O2 Difference mm/Hg Glucose (75-110) mg/dL Lactate (0.7-2.1) mmol/L Vent Mode Mechanical Rate FiO2 % Tidal Volume PEEP Blood Gas Comments Crit Value Called To Crit Value Called By Crit Value Read Back Blood Gas Notified Time Sodium (132-148) mmol/l Potassium (3.6-5.0) MMOL/L Chloride (98-107) mmol/L Carbon Dioxide (22-30) mmol/L Anion Gap (10-20) BUN (9-20) mg/dl Creatinine (0.8-1.5) mg/dl Est GFR ( Amer) Est GFR (Non-Af Amer) Random Glucose (75-110) mg/dL Calcium (8.4-10.2) mg/dL Total Bilirubin (0.2-1.3) mg/dl AST (17-59) U/L ALT (21-72) U/L Alkaline Phosphatase (38-126) U/L Ammonia (9-33) umol/L Total Protein (6.3-8.2) G/DL Albumin (3.5-5.0) g/dL Globulin (2.2-3.9) gm/dL Albumin/Globulin Ratio (1.0-2.1) Arterial Blood Potassium (3.6-5.2) mmol/L Crossmatch See Detail Laboratory Results - last 24 hr 09/22/18 09/24/18 09/24/18 14:05 04:30 10:22 Neutrophils % (Manual) 85 H Band Neutrophils % 8 H Lymphocytes % (Manual) 2 L Monocytes % (Manual) 5 Nucleated RBC % 2 H Platelet Estimate Normal Large Platelets Present Hypochromasia (manual) Moderate Poikilocytosis (manual Slight Anisocytosis (manual) Slight Tear Drop Cells Slight Ovalocytes Slight pCO2 pO2 HCO3 ABG pH ABG Total CO2 ABG O2 Saturation ABG Base Excess Jose Test ABG Potassium A-a O2 Difference Glucose Lactate Vent Mode Mechanical Rate FiO2 Tidal Volume PEEP Blood Gas Comments Crit Value Called To Crit Value Called By Crit Value Read Back Blood Gas Notified Time Sodium 145 Potassium 5.9 H Chloride 110 H Carbon Dioxide 19 L Anion Gap 22 H BUN 66 H Creatinine 4.0 H Est GFR ( Amer) 19 Est GFR (Non-Af Amer) 16 Random Glucose 168 H Calcium 5.7 L* Total Bilirubin AST ALT Alkaline Phosphatase Ammonia Total Protein Albumin Globulin Albumin/Globulin Ratio Arterial Blood Potassium Crossmatch See Detail 09/24/18 09/25/18 09/25/18 21:07 04:30 04:30 Neutrophils % (Manual) Band Neutrophils % Lymphocytes % (Manual) Monocytes % (Manual) Nucleated RBC % Platelet Estimate Large Platelets Hypochromasia (manual) Poikilocytosis (manual Anisocytosis (manual) Tear Drop Cells Ovalocytes pCO2 39 pO2 113 H HCO3 16.3 L ABG pH 7.22 L ABG Total CO2 17.2 L ABG O2 Saturation 99.9 H ABG Base Excess -11.1 L Jose Test Yes ABG Potassium 5.1 A-a O2 Difference 409.0 Glucose 308 H Lactate 12.1 H* Vent Mode Prvc/ac Mechanical Rate 28 FiO2 80.0 Tidal Volume 500 PEEP 5 Blood Gas Comments Lac=12.1 Crit Value Called To gina Joe Crit Value Called By 22 Crit Value Read Back Y Blood Gas Notified Time 2112 Sodium 140.0 144 Potassium 4.1 Chloride 104.0 106 Carbon Dioxide 24 Anion Gap 18 BUN 87 H Creatinine 4.6 H Est GFR ( Amer) 16 Est GFR (Non-Af Amer) 14 Random Glucose 296 H Calcium 4.6 L* Total Bilirubin 4.3 H AST 2649 H ALT 564 H D Alkaline Phosphatase 95 Ammonia 58 H D Total Protein 4.5 L Albumin 2.0 L Globulin 2.5 Albumin/Globulin Ratio 0.8 L Arterial Blood Potassium 5.1 Crossmatch 09/25/18 05:07 Neutrophils % (Manual) Band Neutrophils % Lymphocytes % (Manual) Monocytes % (Manual) Nucleated RBC % Platelet Estimate Large Platelets Hypochromasia (manual) Poikilocytosis (manual Anisocytosis (manual) Tear Drop Cells Ovalocytes pCO2 39 pO2 90 HCO3 21.9 ABG pH 7.35 ABG Total CO2 22.7 ABG O2 Saturation 98.4 H ABG Base Excess -3.8 L Jose Test Yes ABG Potassium 4.3 A-a O2 Difference 432.0 Glucose 325 H Lactate 6.3 H* Vent Mode A/c Mechanical Rate 28 FiO2 80.0 Tidal Volume 500 PEEP 5 Blood Gas Comments Crit Value Called To Luke raymundo Crit Value Called By 333 Crit Value Read Back Y Blood Gas Notified Time 519 Sodium 142.0 Potassium Chloride 107.0 Carbon Dioxide Anion Gap BUN Creatinine Est GFR ( Amer) Est GFR (Non-Af Amer) Random Glucose Calcium Total Bilirubin AST ALT Alkaline Phosphatase Ammonia Total Protein Albumin Globulin Albumin/Globulin Ratio Arterial Blood Potassium 4.3 Crossmatch Radiology Impressions: Radiology Impressions Chest X-Ray 09/24/18 05:00 IMPRESSION: Adequate adjustment of endotracheal tube with diminished likely atelectasis right middle lobe. Mild residual remains. Reticular markings appear increased diffusely bilaterally. No pulmonary vascular congestion however. Orogastric termination unclear. Fingerstick Blood Sugar Results: 325 Critical Care Progress Note - Nutrition Nutrition: Nutrition Category Date Time Status NPO Diet [DIET] Diets 09/23/18 Breakfast Active Assessment/Plan - Assessment and Plan (Free Text) Assessment: A/P s/p PEA/cardiac arrest, respiratory failure, aspiration pneumonia, sepsis, ?anoxic encephalopathy, seizer, anemia, ETOH abuse, liver cirrhosis, renal failure, GI bleed - Ventilatory support - Pulmonary toilets - Continue meds - Pressors as needed - Neurology follow up - GI follow up - Renal follow up - Multiorgan failure, extremely poor prognosis critical care 35 min
[2018-09-25] MEDS: levETIRAcetam 1,000 MG in Sodium Chloride 0.9% 100 ML IVPB SCH ×2 (08:01→23:00)
--- NOTE | 2018-09-25 08:18 | RAD ---
Date of service: 09/25/2018 HISTORY: Intubated COMPARISON: Portable chest 09/24/2018 5:09 a.m.. TECHNIQUE: 1 view obtained. FINDINGS: LUNGS: Endotracheal tube is unchanged in position with nasogastric tube identified terminating in the left upper quadrant abdomen. Patchy opacity developing the left base likely reflecting atelectasis. Limited right middle lobe patchy opacity unchanged. Reticular markings remain mildly prominent diffusely. PLEURA: Minimal left pleural effusion not excluded. None is seen at the right. No pneumothorax bilaterally. CARDIOVASCULAR: Calcific atherosclerotic changes are seen related to the thoracic aorta. Stable cardiac size borderline pulmonary vascular congestion. OSSEOUS STRUCTURES: No significant abnormalities. VISUALIZED UPPER ABDOMEN: Normal. OTHER FINDINGS: None. IMPRESSION: Borderline pulmonary vascular congestion. Left basilar atelectasis favored over new infiltrate though trace of pleural effusion is suspected. Limited right middle lobe patchy opacity unchanged.
[2018-09-25 08:24] LABS: HEMOGLOBIN 6.7 g/dL (12.0-18.0); MEAN CELL VOLUME 86.9 fl (80.0-94.0); MEAN CORPUSCULAR HGB CONC 32.2 g/dL (33.0-37.0); RBC 2.38 Mil/uL (4.40-5.90); RED CELL DISTRIBUTION WIDTH 17.1 % (11.5-14.5)
--- NOTE | 2018-09-25 10:50 | PCM.VEEG ---
Video EEG - Procedure Start Date: 09/24/18 Start Time: 14:20 End Date: 09/25/18 End Time: 10:30 Technical Summary: DATA ACQUISITION: This was a multichannel inpatient video-EEG, a minimum of 22 channels were uti lized, performed in accordance with recommendations specified by the [place] [employer] (Corey Hines et al. ACNS Guideline 1: Minimum Technical Requirements for Performing Clinical Electroencephalography. Journal of Clinical Neurophysiology 2016;33:303-7). The 10-20 electrode placement system was utilized in accordance with guidelines detailed by the International Federation of Clinical Neurophysiology (Fiordaliza Caputo et al. The Ten-Twenty Electrode System of the International Federation. Recommendations for the Practice of Clinical Neurophysiology: Guidelines of the International Federation of Clinical Physiology 1999; EEG Suppl. 52.). DATA REVIEW / SPIKE DETECTION / DIGITAL ANALYSIS: The entire EEG was scanned and reviewed. Synchronized audio and video recording were reviewed at the time of each alarm and whenever an abnormality or suspicious activity was noted. The entire recording was analyzed utilizing an automated digital spike and seizure analysis program and all automatic spike and seizure detections were manually reviewed. A compressed spectral array was displayed and reviewed alongside the raw EEG tracings. In addition, further analysis of the EEG was performed when abnormalities were identified, including montage changes, dipole source localization, and frequency band identification. Video portion of the study is necessary to correlate abnormal EEG activity with clinical behavior. This study was attended 24 hours per day. - Interpretation Description of the study: Indication status epilepticus following cardiac arrest EEG Finding during wakefulness: There was no evidence awake arcitecture, the EEG was markedly attenuated, with very low amplitude or no evidence of brain activity by evident at 3 uv of reading lise EEG showed cardiac rhythm artifact but not brain activity. There was no response to stimulation EEG Finding during sleep: Normal sleep architecture was absent. Interictal non-epileptiform abnormalities: None Interictal epileptiform abnormalities: None Ictal epileptiform abnormalities: None - Impression Impression: This is an abnormal video-EEG monitoring study due to the presence of excessive diffuse attenuated slowing, probably electro-cerebral silence. INTERPRETATION: These findings support the diagnosis of severe, bihemispheric cerebral dysfunction, this is non specific, however it is usually seen in patient with diffuse hypoxic brain injury, other toxic metabolic encephalopathies, however high dose sedatives/anesthetics could cause the same VEEG findings, clinical correlation is recommended.
--- NOTE | 2018-09-25 11:31 | CP.PCM.PN ---
Subjective - Date & Time of Evaluation Date of Evaluation: 09/25/18 Time of Evaluation: 11:31 - Subjective Subjective: ID Note- Pt. seen and examined today in ICU. pt. is comatose and unresponsive. on 2 pressors. renal failure. Objective - Vital Signs/Intake and Output Vital Signs (last 24 hours): Temp Pulse Resp BP Pulse Ox 97.5 F L 102 H 20 113/54 L 94 L 09/25/18 11:00 09/25/18 11:00 09/25/18 11:00 09/25/18 11:00 09/25/18 11:00 Intake and Output: 09/25/18 09/25/18 06:59 18:59 Intake Total 3015 1962 Output Total 340 50 Balance 2675 1912 - Medications Medications: Current Medications Acetaminophen (Tylenol 650mg/20.3ml Solution Ud) 650 mg PO Q6 PRN PRN Reason: Temperature Calcium Acetate (Phoslo) 1,334 mg GT TID JANNIE Fosphenytoin Sodium (Cerebyx) 200 mg IV Q8 JANNIE Last Admin: 09/25/18 08:11 Dose: 200 mg Pantoprazole Sodium 40 mg/ (Sodium Chloride) 100 mls @ 20 mls/hr IVPB Q5H JANNIE Last Admin: 09/25/18 08:04 Dose: 20 mls/hr Octreotide Acetate 1,250 mcg/ (Sodium Chloride) 252.5 mls @ 10.1 mls/hr IV .Q24H JANNIE; Protocol Last Admin: 09/24/18 11:05 Dose: 10.1 mls/hr Metronidazole (Flagyl 500mg/100ml Ns) 100 mls @ 100 mls/hr IVPB Q8 JANNIE; Protocol Last Admin: 09/25/18 08:02 Dose: 100 mls/hr Vancomycin HCl 750 mg/ Sodium (Chloride) 250 mls @ 166.667 mls/hr IVPB Q12 JANNIE; Protocol Last Admin: 09/25/18 08:06 Dose: 166.667 mls/hr Meropenem 1 gm/ Sodium (Chloride) 100 mls @ 100 mls/hr IVPB Q8 JANNIE; Protocol Last Admin: 09/25/18 08:01 Dose: 100 mls/hr Levetiracetam 1,000 mg/ Sodium (Chloride) 110 mls @ 210 mls/hr IVPB Q12 JANNIE Last Admin: 09/25/18 08:01 Dose: 210 mls/hr Thiamine HCl 200 mg/ Sodium (Chloride) 102 mls @ 102 mls/hr IV Q8 JANNIE Last Admin: 09/25/18 08:01 Dose: 102 mls/hr Phenylephrine HCl 60 mg/ (Sodium Chloride) 256 mls @ 46.08 mls/hr IV .[id number] JANNIE; Protocol Stop: 09/25/18 21:01 Last Titration: 09/25/18 08:00 Dose: 180 mcg/min, 46.08 mls/hr Norepinephrine Bitartrate 16 (mg/ Dextrose) 266 mls @ 24.94 mls/hr IV .[id number]; Protocol Stop: 09/25/18 15:32 Last Titration: 09/25/18 07:57 Dose: 30 mcg/min, 29.93 mls/hr Sodium Bicarbonate 100 meq/ (Dextrose/Sodium Chloride) 1,100 mls @ 100 mls/hr IV .Q11H JANNIE Stop: 09/25/18 21:29 Calcium Gluconate 2,000 mg/ (Sodium Chloride) 120 mls @ 100 mls/hr IVPB Q4 [facility] Stop: 09/25/18 14:11 Lactulose (Enulose) 20 gm NG Q4 JANNIE Last Admin: 09/25/18 09:05 Dose: 20 gm Lorazepam (Ativan) 1 mg IVP Q4 PRN PRN Reason: Agitation Last Admin: 09/24/18 10:59 Dose: 1 mg Rifaximin (Xifaxan) 550 mg NG BID [facility]; Protocol Last Admin: 09/25/18 08:03 Dose: 550 mg - Labs Labs: - Additional Findings Additional findings: - Constitutional Additional comments: Intubated and has jaw twitching, eyes closed - ENT Exam Additional comments: ET tube NGT in place draining dark red-brown fluid - Respiratory Exam Additional comments: decreased breath sounds bibasilar is on the vent - Cardiovascular Exam Cardiovascular Exam: Tachycardia, +S1, +S2 - GI/Abdominal Exam GI & Abdominal Exam: Soft Additional comments: No distention - Extremities Exam Extremities exam: Positive for: normal inspection - Neurological Exam Neurological exam: comatose Laboratory Results - last 72 hr 09/22/18 09/22/18 09/22/18 14:05 14:05 14:05 WBC 4.9 RBC 2.10 L Hgb 5.5 L* D Hct 18.0 L MCV 85.7 D MCH 26.3 L MCHC 30.7 L RDW 18.9 H Plt Count 115 L D MPV 7.6 Neut % (Auto) 70.5 Lymph % (Auto) 13.2 L [place] % (Auto) 11.7 H Eos % (Auto) 3.4 Baso % (Auto) 1.2 Neut # (Auto) 3.5 Lymph # (Auto) 0.7 L [place] # (Auto) 0.6 Eos # (Auto) 0.2 Baso # (Auto) 0.1 Neutrophils % (Manual) Band Neutrophils % Lymphocytes % (Manual) Reactive Lymphs % Monocytes % (Manual) Nucleated RBC % Platelet Estimate Large Platelets Polychromasia Hypochromasia (manual) Poikilocytosis (manual Anisocytosis (manual) Tear Drop Cells Ovalocytes PT INR APTT pCO2 pO2 HCO3 ABG pH ABG Total CO2 ABG O2 Saturation ABG O2 Content ABG Base Excess ABG Hemoglobin ABG Carboxyhemoglobin POC ABG HHb (Measured) ABG Methemoglobin ABG O2 Capacity Jose Test ABG Potassium A-a O2 Difference Hgb O2 Saturation Glucose Lactate Vent Mode Mechanical Rate FiO2 Tidal Volume PEEP Blood Gas Comments Crit Value Called To Crit Value Called By Crit Value Read Back Blood Gas Notified Time Sodium 142 Potassium 4.4 Chloride 114 H Carbon Dioxide 21 L Anion Gap 11 BUN 42 H Creatinine 0.8 Est GFR ( Amer) > 60 Est GFR (Non-Af Amer) > 60 POC Glucose (mg/dL) Random Glucose 91 Lactic Acid Calcium 7.7 L Phosphorus Magnesium Total Bilirubin 0.7 AST 73 H ALT 45 Alkaline Phosphatase 85 Ammonia Total Creatine Kinase Troponin I Total Protein 6.2 L Albumin 2.7 L Globulin 3.5 Albumin/Globulin Ratio 0.8 L Procalcitonin Arterial Blood Potassium Vancomycin Trough Alcohol, Quantitative < 10 Influenza Typ A,B (EIA) Negative for flu a/b Blood Type Antibody Screen Crossmatch BBK History Checked 09/22/18 09/23/18 09/23/18 14:05 05:10 06:13 WBC 17.8 H D RBC 1.91 L Hgb 5.0 L* Hct 17.7 L MCV 92.6 D MCH 26.2 L MCHC 28.3 L RDW 18.5 H Plt Count 224 D MPV 7.7 Neut % (Auto) 65.6 Lymph % (Auto) 21.2 [place] % (Auto) 8.3 Eos % (Auto) 3.8 Baso % (Auto) 1.1 Neut # (Auto) 11.7 H Lymph # (Auto) 3.8 [place] # (Auto) 1.5 H Eos # (Auto) 0.7 Baso # (Auto) 0.2 Neutrophils % (Manual) Band Neutrophils % Lymphocytes % (Manual) Reactive Lymphs % Monocytes % (Manual) Nucleated RBC % Platelet Estimate Large Platelets Polychromasia Hypochromasia (manual) Poikilocytosis (manual Anisocytosis (manual) Tear Drop Cells Ovalocytes PT INR APTT pCO2 42 pO2 442 H HCO3 12.8 L ABG pH 7.11 L* ABG Total CO2 14.6 L ABG O2 Saturation 99.9 H ABG O2 Content ABG Base Excess -15.7 L ABG Hemoglobin ABG Carboxyhemoglobin POC ABG HHb (Measured) ABG Methemoglobin ABG O2 Capacity Jose Test Yes ABG Potassium 5.5 H A-a O2 Difference 219.0 Hgb O2 Saturation Glucose 176 H Lactate 6.1 H* Vent Mode A/c Mechanical Rate 18 FiO2 100.0 Tidal Volume 500 PEEP 5 Blood Gas Comments Crit Value Called To Placido fuentes md Crit Value Called By 333 Crit Value Read Back Y Blood Gas Notified Time 619 Sodium 143.0 Potassium Chloride 123.0 H Carbon Dioxide Anion Gap BUN Creatinine Est GFR ( Amer) Est GFR (Non-Af Amer) POC Glucose (mg/dL) Random Glucose Lactic Acid Calcium Phosphorus Magnesium Total Bilirubin AST ALT Alkaline Phosphatase Ammonia Total Creatine Kinase Troponin I Total Protein Albumin Globulin Albumin/Globulin Ratio Procalcitonin Arterial Blood Potassium 5.5 H Vancomycin Trough Alcohol, Quantitative Influenza Typ A,B (EIA) Blood Type O POSITIVE Antibody Screen Negative Crossmatch See Detail BBK History Checked Patient has bt 09/23/18 09/23/18 09/23/18 10:29 10:29 10:29 WBC 39.0 H* D RBC 2.58 L Hgb 6.8 L Hct 22.6 L MCV 87.5 D MCH 26.2 L MCHC 30.0 L RDW 17.3 H Plt Count 219 MPV 7.5 Neut % (Auto) 94.3 H Lymph % (Auto) 1.2 L [place] % (Auto) 3.8 Eos % (Auto) 0.1 Baso % (Auto) 0.6 Neut # (Auto) 36.7 H Lymph # (Auto) 0.5 L [place] # (Auto) 1.5 H Eos # (Auto) 0.1 Baso # (Auto) 0.2 Neutrophils % (Manual) 83 H Band Neutrophils % 12 H* Lymphocytes % (Manual) 1 L Reactive Lymphs % 1 H Monocytes % (Manual) 3 Nucleated RBC % Platelet Estimate Normal Large Platelets Polychromasia Slight Hypochromasia (manual) Moderate Poikilocytosis (manual Moderate Anisocytosis (manual) Moderate Tear Drop Cells Ovalocytes PT 21.2 H INR 1.9 APTT 40.0 H pCO2 pO2 HCO3 ABG pH ABG Total CO2 ABG O2 Saturation ABG O2 Content ABG Base Excess ABG Hemoglobin ABG Carboxyhemoglobin POC ABG HHb (Measured) ABG Methemoglobin ABG O2 Capacity Jose Test ABG Potassium A-a O2 Difference Hgb O2 Saturation Glucose Lactate Vent Mode Mechanical Rate FiO2 Tidal Volume PEEP Blood Gas Comments Crit Value Called To Crit Value Called By Crit Value Read Back Blood Gas Notified Time Sodium Potassium Chloride Carbon Dioxide Anion Gap BUN Creatinine Est GFR ( Amer) Est GFR (Non-Af Amer) POC Glucose (mg/dL) Random Glucose Lactic Acid Calcium Phosphorus Magnesium Total Bilirubin AST ALT Alkaline Phosphatase Ammonia Total Creatine Kinase Troponin I Total Protein Albumin Globulin Albumin/Globulin Ratio Procalcitonin 4.11 H Arterial Blood Potassium Vancomycin Trough Alcohol, Quantitative Influenza Typ A,B (EIA) Blood Type Antibody Screen Crossmatch BBK History Checked 09/23/18 09/23/18 09/23/18 10:29 10:29 10:29 WBC RBC Hgb Hct MCV MCH MCHC RDW Plt Count MPV Neut % (Auto) Lymph % (Auto) [place] % (Auto) Eos % (Auto) Baso % (Auto) Neut # (Auto) Lymph # (Auto) [place] # (Auto) Eos # (Auto) Baso # (Auto) Neutrophils % (Manual) Band Neutrophils % Lymphocytes % (Manual) Reactive Lymphs % Monocytes % (Manual) Nucleated RBC % Platelet Estimate Large Platelets Polychromasia Hypochromasia (manual) Poikilocytosis (manual Anisocytosis (manual) Tear Drop Cells Ovalocytes PT INR APTT pCO2 pO2 HCO3 ABG pH ABG Total CO2 ABG O2 Saturation ABG O2 Content ABG Base Excess ABG Hemoglobin ABG Carboxyhemoglobin POC ABG HHb (Measured) ABG Methemoglobin ABG O2 Capacity Jose Test ABG Potassium A-a O2 Difference Hgb O2 Saturation Glucose Lactate Vent Mode Mechanical Rate FiO2 Tidal Volume PEEP Blood Gas Comments Crit Value Called To Crit Value Called By Crit Value Read Back Blood Gas Notified Time Sodium Potassium Chloride Carbon Dioxide Anion Gap BUN Creatinine Est GFR ( Amer) Est GFR (Non-Af Amer) POC Glucose (mg/dL) Random Glucose Lactic Acid 9.0 H* Calcium Phosphorus Magnesium Total Bilirubin AST ALT Alkaline Phosphatase Ammonia 483 H* Total Creatine Kinase 856 H Troponin I 0.2020 H* Total Protein Albumin Globulin Albumin/Globulin Ratio Procalcitonin Arterial Blood Potassium Vancomycin Trough Alcohol, Quantitative Influenza Typ A,B (EIA) Blood Type Antibody Screen Crossmatch BBK History Checked 09/23/18 09/23/18 09/23/18 13:52 14:00 14:00 WBC RBC Hgb Hct MCV MCH MCHC RDW Plt Count MPV Neut % (Auto) Lymph % (Auto) [place] % (Auto) Eos % (Auto) Baso % (Auto) Neut # (Auto) Lymph # (Auto) [place] # (Auto) Eos # (Auto) Baso # (Auto) Neutrophils % (Manual) Band Neutrophils % Lymphocytes % (Manual) Reactive Lymphs % Monocytes % (Manual) Nucleated RBC % Platelet Estimate Large Platelets Polychromasia Hypochromasia (manual) Poikilocytosis (manual Anisocytosis (manual) Tear Drop Cells Ovalocytes PT INR APTT pCO2 26 L pO2 176 H HCO3 12.2 L ABG pH 7.20 L ABG Total CO2 11.0 L ABG O2 Saturation 99.7 H ABG O2 Content 9.8 L ABG Base Excess -16.4 L ABG Hemoglobin 6.9 L ABG Carboxyhemoglobin 1.0 POC ABG HHb (Measured) 0.3 ABG Methemoglobin 2.1 ABG O2 Capacity 9.8 L Jose Test Yes ABG Potassium A-a O2 Difference 148.0 Hgb O2 Saturation 96.7 Glucose Lactate Vent Mode Prvc/ac Mechanical Rate 16 FiO2 50.0 Tidal Volume 500 PEEP 5 Blood Gas Comments Crit Value Called To Dr. promise page m.d. Crit Value Called By Ghazal Crit Value Read Back Y Blood Gas Notified Time 1410 Sodium Potassium Chloride Carbon Dioxide Anion Gap BUN Creatinine Est GFR ( Amer) Est GFR (Non-Af Amer) POC Glucose (mg/dL) Random Glucose Lactic Acid 10.2 H* Calcium Phosphorus Magnesium Total Bilirubin AST ALT Alkaline Phosphatase Ammonia Total Creatine Kinase Troponin I 0.2540 H* Total Protein Albumin Globulin Albumin/Globulin Ratio Procalcitonin Arterial Blood Potassium Vancomycin Trough Alcohol, Quantitative Influenza Typ A,B (EIA) Blood Type Antibody Screen Crossmatch BBK History Checked 09/23/18 09/23/18 09/23/18 14:00 21:23 21:41 WBC RBC Hgb Hct MCV MCH MCHC RDW Plt Count MPV Neut % (Auto) Lymph % (Auto) [place] % (Auto) Eos % (Auto) Baso % (Auto) Neut # (Auto) Lymph # (Auto) [place] # (Auto) Eos # (Auto) Baso # (Auto) Neutrophils % (Manual) Band Neutrophils % Lymphocytes % (Manual) Reactive Lymphs % Monocytes % (Manual) Nucleated RBC % Platelet Estimate Large Platelets Polychromasia Hypochromasia (manual) Poikilocytosis (manual Anisocytosis (manual) Tear Drop Cells Ovalocytes PT INR APTT pCO2 pO2 HCO3 ABG pH ABG Total CO2 ABG O2 Saturation ABG O2 Content ABG Base Excess ABG Hemoglobin ABG Carboxyhemoglobin POC ABG HHb (Measured) ABG Methemoglobin ABG O2 Capacity Jose Test ABG Potassium A-a O2 Difference Hgb O2 Saturation Glucose Lactate Vent Mode Mechanical Rate FiO2 Tidal Volume PEEP Blood Gas Comments Crit Value Called To Crit Value Called By Crit Value Read Back Blood Gas Notified Time Sodium 147 150 H Potassium 6.5 H* D 6.8 H* Chloride 120 H 118 H Carbon Dioxide 12 L 12 L Anion Gap 22 H 27 H BUN 50 H 57 H Creatinine 1.9 H 3.2 H Est GFR ( Amer) 45 25 Est GFR (Non-Af Amer) 38 21 POC Glucose (mg/dL) 153 H Random Glucose 141 H 144 H Lactic Acid Calcium 6.6 L 6.6 L Phosphorus Magnesium Total Bilirubin 1.2 AST 218 H D ALT 65 Alkaline Phosphatase 108 Ammonia Total Creatine Kinase Troponin I Total Protein 5.7 L Albumin 2.4 L Globulin 3.3 Albumin/Globulin Ratio 0.7 L Procalcitonin Arterial Blood Potassium Vancomycin Trough Alcohol, Quantitative Influenza Typ A,B (EIA) Blood Type Antibody Screen Crossmatch BBK History Checked 09/24/18 09/24/18 09/24/18 04:05 04:30 04:30 WBC 37.8 H* RBC 2.86 L Hgb 7.9 L Hct 26.3 L MCV 91.9 D MCH 27.7 MCHC 30.1 L RDW 17.6 H Plt Count 226 MPV 8.6 Neut % (Auto) 91.2 H Lymph % (Auto) 3.2 L [place] % (Auto) 5.3 Eos % (Auto) 0.0 Baso % (Auto) 0.3 Neut # (Auto) 34.5 H Lymph # (Auto) 1.2 [place] # (Auto) 2.0 H Eos # (Auto) 0.0 Baso # (Auto) 0.1 Neutrophils % (Manual) 85 H Band Neutrophils % 8 H Lymphocytes % (Manual) 2 L Reactive Lymphs % Monocytes % (Manual) 5 Nucleated RBC % 2 H Platelet Estimate Normal Large Platelets Present Polychromasia Hypochromasia (manual) Moderate Poikilocytosis (manual Slight Anisocytosis (manual) Slight Tear Drop Cells Slight Ovalocytes Slight PT INR APTT pCO2 58 H pO2 90 HCO3 10.1 L ABG pH 6.97 L* ABG Total CO2 15.1 L ABG O2 Saturation 98.8 H ABG O2 Content ABG Base Excess -18.8 L ABG Hemoglobin ABG Carboxyhemoglobin POC ABG HHb (Measured) ABG Methemoglobin ABG O2 Capacity Jose Test Yes ABG Potassium 7.0 H* A-a O2 Difference 194.0 Hgb O2 Saturation Glucose 194 H Lactate 9.6 H* Vent Mode A/c Mechanical Rate 16 FiO2 50.0 Tidal Volume 500 PEEP 5 Blood Gas Comments Crit Value Called To Luke muniz Crit Value Called By Stuart Crit Value Read Back Y Blood Gas Notified Time 430 Sodium 143.0 Potassium Chloride 116.0 H Carbon Dioxide Anion Gap BUN Creatinine Est GFR ( Amer) Est GFR (Non-Af Amer) POC Glucose (mg/dL) Random Glucose Lactic Acid Calcium Phosphorus Magnesium Total Bilirubin AST ALT Alkaline Phosphatase Ammonia Total Creatine Kinase Troponin I Total Protein Albumin Globulin Albumin/Globulin Ratio Procalcitonin Arterial Blood Potassium 7.0 H* Vancomycin Trough 11.5 H Alcohol, Quantitative Influenza Typ A,B (EIA) Blood Type Antibody Screen Crossmatch BBK History Checked 09/24/18 09/24/18 09/24/18 04:30 04:30 04:30 WBC RBC Hgb Hct MCV MCH MCHC RDW Plt Count MPV Neut % (Auto) Lymph % (Auto) [place] % (Auto) Eos % (Auto) Baso % (Auto) Neut # (Auto) Lymph # (Auto) [place] # (Auto) Eos # (Auto) Baso # (Auto) Neutrophils % (Manual) Band Neutrophils % Lymphocytes % (Manual) Reactive Lymphs % Monocytes % (Manual) Nucleated RBC % Platelet Estimate Large Platelets Polychromasia Hypochromasia (manual) Poikilocytosis (manual Anisocytosis (manual) Tear Drop Cells Ovalocytes PT INR APTT pCO2 pO2 HCO3 ABG pH ABG Total CO2 ABG O2 Saturation ABG O2 Content ABG Base Excess ABG Hemoglobin ABG Carboxyhemoglobin POC ABG HHb (Measured) ABG Methemoglobin ABG O2 Capacity Jose Test ABG Potassium A-a O2 Difference Hgb O2 Saturation Glucose Lactate Vent Mode Mechanical Rate FiO2 Tidal Volume PEEP Blood Gas Comments Crit Value Called To Crit Value Called By Crit Value Read Back Blood Gas Notified Time Sodium 148 Potassium 6.3 H* Chloride 112 H Carbon Dioxide 19 L Anion Gap 23 H BUN 62 H Creatinine 3.7 H Est GFR ( Amer) 21 Est GFR (Non-Af Amer) 17 POC Glucose (mg/dL) Random Glucose 188 H Lactic Acid 10.3 H* Calcium 6.1 L Phosphorus 15.5 H Magnesium 2.1 Total Bilirubin 2.0 H AST 641 H D ALT 155 H D Alkaline Phosphatase 100 Ammonia 383 H* D Total Creatine Kinase Troponin I Total Protein 5.5 L Albumin 2.5 L Globulin 3.0 Albumin/Globulin Ratio 0.8 L Procalcitonin Arterial Blood Potassium Vancomycin Trough Alcohol, Quantitative Influenza Typ A,B (EIA) Blood Type Antibody Screen Crossmatch BBK History Checked 09/24/18 09/24/18 09/24/18 04:30 10:22 21:07 WBC RBC Hgb Hct MCV MCH MCHC RDW Plt Count MPV Neut % (Auto) Lymph % (Auto) [place] % (Auto) Eos % (Auto) Baso % (Auto) Neut # (Auto) Lymph # (Auto) [place] # (Auto) Eos # (Auto) Baso # (Auto) Neutrophils % (Manual) Band Neutrophils % Lymphocytes % (Manual) Reactive Lymphs % Monocytes % (Manual) Nucleated RBC % Platelet Estimate Large Platelets Polychromasia Hypochromasia (manual) Poikilocytosis (manual Anisocytosis (manual) Tear Drop Cells Ovalocytes PT 24.0 H INR 2.1 APTT 48.7 H pCO2 39 pO2 113 H HCO3 16.3 L ABG pH 7.22 L ABG Total CO2 17.2 L ABG O2 Saturation 99.9 H ABG O2 Content ABG Base Excess -11.1 L ABG Hemoglobin ABG Carboxyhemoglobin POC ABG HHb (Measured) ABG Methemoglobin ABG O2 Capacity Jose Test Yes ABG Potassium 5.1 A-a O2 Difference 409.0 Hgb O2 Saturation Glucose 308 H Lactate 12.1 H* Vent Mode Prvc/ac Mechanical Rate 28 FiO2 80.0 Tidal Volume 500 PEEP 5 Blood Gas Comments Lac=12.1 Crit Value Called To gina Joe Crit Value Called By 22 Crit Value Read Back Y Blood Gas Notified Time 2112 Sodium 145 140.0 Potassium 5.9 H Chloride 110 H 104.0 Carbon Dioxide 19 L Anion Gap 22 H BUN 66 H Creatinine 4.0 H Est GFR ( Amer) 19 Est GFR (Non-Af Amer) 16 POC Glucose (mg/dL) Random Glucose 168 H Lactic Acid Calcium 5.7 L* Phosphorus Magnesium Total Bilirubin AST ALT Alkaline Phosphatase Ammonia Total Creatine Kinase Troponin I Total Protein Albumin Globulin Albumin/Globulin Ratio Procalcitonin Arterial Blood Potassium 5.1 Vancomycin Trough Alcohol, Quantitative Influenza Typ A,B (EIA) Blood Type Antibody Screen Crossmatch BBK History Checked 09/25/18 09/25/18 09/25/18 04:30 04:30 05:07 WBC RBC Hgb Hct MCV MCH MCHC RDW Plt Count MPV Neut % (Auto) Lymph % (Auto) [place] % (Auto) Eos % (Auto) Baso % (Auto) Neut # (Auto) Lymph # (Auto) [place] # (Auto) Eos # (Auto) Baso # (Auto) Neutrophils % (Manual) Band Neutrophils % Lymphocytes % (Manual) Reactive Lymphs % Monocytes % (Manual) Nucleated RBC % Platelet Estimate Large Platelets Polychromasia Hypochromasia (manual) Poikilocytosis (manual Anisocytosis (manual) Tear Drop Cells Ovalocytes PT INR APTT pCO2 39 pO2 90 HCO3 21.9 ABG pH 7.35 ABG Total CO2 22.7 ABG O2 Saturation 98.4 H ABG O2 Content ABG Base Excess -3.8 L ABG Hemoglobin ABG Carboxyhemoglobin POC ABG HHb (Measured) ABG Methemoglobin ABG O2 Capacity Jose Test Yes ABG Potassium 4.3 A-a O2 Difference 432.0 Hgb O2 Saturation Glucose 325 H Lactate 6.3 H* Vent Mode A/c Mechanical Rate 28 FiO2 80.0 Tidal Volume 500 PEEP 5 Blood Gas Comments Crit Value Called To Luke raymundo Crit Value Called By 333 Crit Value Read Back Y Blood Gas Notified Time 519 Sodium 144 142.0 Potassium 4.1 Chloride 106 107.0 Carbon Dioxide 24 Anion Gap 18 BUN 87 H Creatinine 4.6 H Est GFR ( Amer) 16 Est GFR (Non-Af Amer) 14 POC Glucose (mg/dL) Random Glucose 296 H Lactic Acid Calcium 4.6 L* Phosphorus Magnesium Total Bilirubin 4.3 H AST 2649 H ALT 564 H D Alkaline Phosphatase 95 Ammonia 58 H D Total Creatine Kinase Troponin I Total Protein 4.5 L Albumin 2.0 L Globulin 2.5 Albumin/Globulin Ratio 0.8 L Procalcitonin Arterial Blood Potassium 4.3 Vancomycin Trough Alcohol, Quantitative Influenza Typ A,B (EIA) Blood Type Antibody Screen Crossmatch BBK History Checked 09/25/18 07:40 WBC 13.0 H D RBC 2.38 L Hgb 6.7 L Hct 20.7 L MCV 86.9 D MCH 28.0 MCHC 32.2 L RDW 17.1 H Plt Count 47 L D MPV Neut % (Auto) Lymph % (Auto) [place] % (Auto) Eos % (Auto) Baso % (Auto) Neut # (Auto) Lymph # (Auto) [place] # (Auto) Eos # (Auto) Baso # (Auto) Neutrophils % (Manual) Band Neutrophils % Lymphocytes % (Manual) Reactive Lymphs % Monocytes % (Manual) Nucleated RBC % Platelet Estimate Large Platelets Polychromasia Hypochromasia (manual) Poikilocytosis (manual Anisocytosis (manual) Tear Drop Cells Ovalocytes PT INR APTT pCO2 pO2 HCO3 ABG pH ABG Total CO2 ABG O2 Saturation ABG O2 Content ABG Base Excess ABG Hemoglobin ABG Carboxyhemoglobin POC ABG HHb (Measured) ABG Methemoglobin ABG O2 Capacity Jose Test ABG Potassium A-a O2 Difference Hgb O2 Saturation Glucose Lactate Vent Mode Mechanical Rate FiO2 Tidal Volume PEEP Blood Gas Comments Crit Value Called To Crit Value Called By Crit Value Read Back Blood Gas Notified Time Sodium Potassium Chloride Carbon Dioxide Anion Gap BUN Creatinine Est GFR ( Amer) Est GFR (Non-Af Amer) POC Glucose (mg/dL) Random Glucose Lactic Acid Calcium Phosphorus Magnesium Total Bilirubin AST ALT Alkaline Phosphatase Ammonia Total Creatine Kinase Troponin I Total Protein Albumin Globulin Albumin/Globulin Ratio Procalcitonin Arterial Blood Potassium Vancomycin Trough Alcohol, Quantitative Influenza Typ A,B (EIA) Blood Type Antibody Screen Crossmatch BBK History Checked Microbiology 09/23/18 13:28 Sputum Gram Stain - Final 09/23/18 13:28 Sputum Sputum Culture - Final Escherichia Coli Staphylococcus Aureus 09/23/18 10:30 Blood-Venous Blood Culture - Preliminary NO GROWTH AFTER 48 HOURS 09/23/18 10:41 Blood-Venous Blood Culture - Preliminary NO GROWTH AFTER 48 HOURS 09/23/18 14:26 Naris MRSA Culture (Admit) - Final MRSA NOT DETECTED Accession No. : [id number] Patient Name / ID : LIANET Wilks / [id number] Exam Date : 09/25/2018 05:09:19 ( Approved ) Study Comment : Sex / Age : M / 53Y Creator : Hi Vang MD Dictator : Hi Vang MD Energy Audit Advisor : Rn Birthing : Hi Vang MD Approver2 : Report Date : 09/25/2018 08:13:16 My Comment : Date of service: 09/25/2018 HISTORY: Intubated COMPARISON: Portable chest 09/24/2018 5:09 a.m.. TECHNIQUE: 1 view obtained. FINDINGS: LUNGS: Endotracheal tube is unchanged in position with nasogastric tube identified terminating in the left upper quadrant abdomen. Patchy opacity developing the left base likely reflecting atelectasis. Limited right middle lobe patchy opacity unchanged. Reticular markings remain mildly prominent diffusely. PLEURA: Minimal left pleural effusion not excluded. None is seen at the right. No pneumothorax bilaterally. CARDIOVASCULAR: Calcific atherosclerotic changes are seen related to the thoracic aorta. Stable cardiac size borderline pulmonary vascular congestion. OSSEOUS STRUCTURES: No significant abnormalities. VISUALIZED UPPER ABDOMEN: Normal. OTHER FINDINGS: None. IMPRESSION: Borderline pulmonary vascular congestion. Left basilar atelectasis favored over new infiltrate though trace of pleural effusion is suspected. Limited right middle lobe patchy opacity unchanged. Assessment and Plan (1) Acute gastrointestinal bleeding Status: Acute (2) Alcohol abuse with alcohol-induced disorder Status: Acute (3) Leukocytosis Status: Acute (4) Anemia Status: Acute (5) GI bleed Status: Acute (6) Aspiration pneumonia Status: Acute - Assessment and Plan (Free Text) Assessment: A/P- 53 year old male with h/o GI bleed, ETOH abuse, ETOH cirrhosis and variceal bleed s/p TIPS who was admitted with vomiting and bad pain and found to have severe anemia and post PRBC transfusion developed reaaction to the transfusion and unresponsive was coded and now is intubated in ICU. pt. comatose unresposive on 2 pressors renal failure blood cx- neg x 2 sputum cx- ESBL e.coli and MRSA high lactate leukocytosis decreasing Plan- xcontinue with IV meropnem 1 gram [id number]. day #3 continue with IV vanco as well day #3. keep vanco trough <15. Neuro evaluation. prognosis very poor. all labs , imaging and chart notes reviewed. critical care time 40 minutes.
--- NOTE | 2018-09-25 12:07 | CP.PCM.PN ---
Subjective - Date & Time of Evaluation Date of Evaluation: 09/25/18 Time of Evaluation: 12:05 - Subjective Subjective: Nephrology Consultation Note: Assessment: critical Acute Kidney Injury (N17.9) likely due to ATN/shock hyperkalemia hypocalcemia hyperphosphatemia cardiac arrest x 2, hyperammonemia, lactic acidosis, shock requiring pressors, coagulopathy severe anoxic brain injury with seizures hx of Etoh cirrhosis s/p TIPS, variceal bleed Plan Pt with extremely poor prognosis and likely terminally ill with multi-system organ failure. hemodynamically unstable, severe anoxic brain injury. Hence, not a candidate for renal replacement therapy at this time. Unless, show evidence of brain function and hemodynamically stable. Maintain hemodynamics stable. Avoid hypotension. Patient not on ACEI/ARB due to recent DMITRIY Monitor Input/Output, daily weights and renal function with basic metabolic panel supplement for IV calcium 2 gram x 2 doses ordered IV thiamine Dose meds/antibiotics for reduced GFR. Avoid fleets enema/magnesium based la xatives. Avoid nephrotoxins/NSAIDs Glycemic control Further work up/management as per primary team Thanks for allowing me to participate in care of your patient. Will follow patient with you. Please call if any Qs. had d/w team. family not available Dr Lebron Doyle Office: [phone] Chief Complaint; unable Reason for consult: Acute Kidney Injury HPI: Pt is a 53 M with hx of Etoh cirrhosis s/p TIPS, variceal bleed presented with complaints of pain abdomen and found to have severe anemia. his hospital course complicated by cardiac arrest x 2, hyperammonemia, lactic acidosis, shock requiring pressors, coagulopathy and anoxic brain injury with seizures. also with DMITRIY hence renal consulted No recent iodinated contrast exposure. Noted obvious episodes of low BP. ROS: unable to obtain Physical Examination: General Appearance: ill appearing, intubated. unresponsive Vitals reviewed and noted as below Head; Atraumatic, normocephalic ENT: orally iuntubated EYES: Pupils are b/l fixed dilated and non reacting Neck; supple no lymphadenopathy, no thyromegaly or bruit Lungs: Vented Breath sounds bilateral equal and clear Heart: Increased rate. s1s2 normal. No rub or gallop. Extremities: 1+ edema. No varicose veins Neurological: Patient is unresponsive Skin: Warm and dry. Normal turgor. No rash. Palpitation: Normal elasticity for age Abdomen: Abdomen is soft. Bowel sounds +. There is no abdominal tenderness, no guarding/rigidity no organomegaly Psych: unable MSK: no joint tenderness or swelling. Digits and nails normal, no deformity : kidney or bladder not palpable. has barrientos Labs/imaging reviewed. Past medical history, past surgical history, family history, social history, allergy reviewed and noted as below Family hx: no hx of CKD. Rest non-contributory Objective - Vital Signs/Intake and Output Vital Signs (last 24 hours): Temp Pulse Resp BP Pulse Ox 97.5 F L 102 H 20 113/54 L 94 L 09/25/18 11:00 09/25/18 11:00 09/25/18 11:00 09/25/18 11:00 09/25/18 11:00 Intake and Output: 09/25/18 09/25/18 06:59 18:59 Intake Total 3015 1962 Output Total 340 50 Balance 2675 1912 - Medications Medications: Current Medications Acetaminophen (Tylenol 650mg/20.3ml Solution Ud) 650 mg PO Q6 PRN PRN Reason: Temperature Calcium Acetate (Phoslo) 1,334 mg GT TID JANNIE Fosphenytoin Sodium (Cerebyx) 200 mg IV Q8 JANNIE Last Admin: 09/25/18 08:11 Dose: 200 mg Pantoprazole Sodium 40 mg/ (Sodium Chloride) 100 mls @ 20 mls/hr IVPB Q5H JANNIE Last Admin: 09/25/18 08:04 Dose: 20 mls/hr Octreotide Acetate 1,250 mcg/ (Sodium Chloride) 252.5 mls @ 10.1 mls/hr IV .Q 24H JANNIE; Protocol Last Admin: 09/24/18 11:05 Dose: 10.1 mls/hr Metronidazole (Flagyl 500mg/100ml Ns) 100 mls @ 100 mls/hr IVPB Q8 JANNIE; Protocol Last Admin: 09/25/18 08:02 Dose: 100 mls/hr Vancomycin HCl 750 mg/ Sodium (Chloride) 250 mls @ 166.667 mls/hr IVPB Q12 JANNIE; Protocol Last Admin: 09/25/18 08:06 Dose: 166.667 mls/hr Meropenem 1 gm/ Sodium (Chloride) 100 mls @ 100 mls/hr IVPB Q8 JANNIE; Protocol Last Admin: 09/25/18 08:01 Dose: 100 mls/hr Levetiracetam 1,000 mg/ Sodium (Chloride) 110 mls @ 210 mls/hr IVPB Q12 JANNIE Last Admin: 09/25/18 08:01 Dose: 210 mls/hr Thiamine HCl 200 mg/ Sodium (Chloride) 102 mls @ 102 mls/hr IV Q8 JANNIE Last Admin: 09/25/18 08:01 Dose: 102 mls/hr Phenylephrine HCl 60 mg/ (Sodium Chloride) 256 mls @ 46.08 mls/hr IV .Q5H34M JANNIE; Protocol Stop: 09/25/18 21:01 Last Titration: 09/25/18 08:00 Dose: 180 mcg/min, 46.08 mls/hr Norepinephrine Bitartrate 16 (mg/ Dextrose) 266 mls @ 24.94 mls/hr IV .[id number] ONE; Protocol Stop: 09/25/18 15:32 Last Titration: 09/25/18 07:57 Dose: 30 mcg/min, 29.93 mls/hr Sodium Bicarbonate 100 meq/ (Dextrose/Sodium Chloride) 1,100 mls @ 100 mls/hr IV .Q11H JANNIE Stop: 09/25/18 21:29 Calcium Gluconate 2,000 mg/ (Sodium Chloride) 120 mls @ 100 mls/hr IVPB Q4 JANNIE Stop: 09/25/18 14:11 Lactulose (Enulose) 20 gm NG Q4 JANNIE Last Admin: 09/25/18 09:05 Dose: 20 gm Lorazepam (Ativan) 1 mg IVP Q4 PRN PRN Reason: Agitation Last Admin: 09/24/18 10:59 Dose: 1 mg Rifaximin (Xifaxan) 550 mg NG BID JANNIE; Protocol Last Admin: 09/25/18 08:03 Dose: 550 mg - Labs Labs: 09/25/18 07:40 09/25/18 04:30 PT 24.0 Seconds (9.8-13.1) H 09/24/18 04:30 INR 2.1 09/24/18 04:30 APTT 48.7 Seconds (25.6-37.1) H 09/24/18 04:30
[2018-09-25] MEDS: Calcium Acetate 667 MG Capsule GT SCH ×2 (12:48→16:37)
--- NOTE | 2018-09-25 22:28 | PN ---
DATE: 09/25/2018 DAILY PROGRESS NOTE SUBJECTIVE: The patient is seen today, 09/25/2018. He is not showing any signs of improvement. Pupils are fixed and dilated, and there are absent corneal reflexes. PHYSICAL EXAMINATION: VITAL SIGNS: Blood pressure 98/41, temperature 97.3, respiratory rate 20, and pulse 101. GENERAL: The patient is intubated. CHEST AND LUNGS: Equal air entry bilaterally. CARDIOVASCULAR SYSTEM: PMI not localized. S1 and S2. No additional sounds. ABDOMEN: Decreased bowel sounds. No organomegaly. No masses. EXTREMITIES: No cyanosis, no clubbing, no edema. CENTRAL NERVOUS SYSTEM: The patient is unresponsive, intubated and on ventilator. LABORATORY DATA: His hemoglobin dropped again today to 6.8 or 6.7. Liver enzymes are elevated. AST is 2649, ALT is 564, total bilirubin 4.3. ASSESSMENT: Status post cardiac arrest, history of seizure disorder, alcoholic liver disease, upper gastrointestinal bleeding, hepatorenal failure with elevation of liver enzymes, bilirubin as well as creatinine. PLAN: Follow up recommendations of the local city driver in regards to packed RBC transfusion. Continue current antibiotics. We will have an consultation as well as social service. Only one brother is located who is hospitalized in long-term acute care. For now, we will continue intensive care treatment. Poor prognosis. Dm Nicholson MD
[2018-09-25] MEDS ORDERED: Sodium Chloride 0.9% 500 ML IV ONE (23:00)
[2018-09-25] MEDS ORDERED: Sodium Chloride 0.9% 250 ML IV SCH (23:00)
--- NOTE | 2018-09-25 23:41 | CP.PCM.PN ---
Subjective - Date & Time of Evaluation Date of Evaluation: 09/25/18 Time of Evaluation: 12:30 - Subjective Subjective: Neurology progress note: Patient examined off sedation, and intubated, and was found to have no brainstem reflexes. His pupils are fixed and dilated, and there are no corneals, no gag, no dolls eyes. There is no spontaneous movement, and he does not withdraw to pain. EEG shows no normal rhythms, no normal brain actiivty. There is no sleep, no muslce activity at this point, off sedation. On exam: intubated, not sedated. Pupils 4mm unreactive to light. No dolls eyes, no corneals, no gag. no spontaneous movement. +1 dtr ul and ll . Objective - Vital Signs/Intake and Output Vital Signs (last 24 hours): Temp Pulse Resp BP Pulse Ox 97.7 F 102 H 20 91/43 L 99 09/25/18 22:45 09/25/18 22:45 09/25/18 22:45 09/25/18 22:45 09/25/18 19:44 Intake and Output: 09/25/18 09/26/18 18:59 06:59 Intake Total 4218 256 Output Total 250 Balance 3968 256 - Medications Medications: Current Medications Acetaminophen (Tylenol 650mg/20.3ml Solution Ud) 650 mg PO Q6 PRN PRN Reason: Temperature Calcium Acetate (Phoslo) 1,334 mg GT TID JANNIE Last Admin: 09/25/18 16:37 Dose: 1,334 mg Fosphenytoin Sodium (Cerebyx) 200 mg IV Q8 JANNIE Last Admin: 09/25/18 16:34 Dose: 200 mg Pantoprazole Sodium 40 mg/ (Sodium Chloride) 100 mls @ 20 mls/hr IVPB Q5H JANNIE Last Admin: 09/25/18 21:53 Dose: 20 mls/hr Octreotide Acetate 1,250 mcg/ (Sodium Chloride) 252.5 mls @ 10.1 mls/hr IV .Q24H JANNIE; Protocol Last Admin: 09/25/18 16:27 Dose: 10.1 mls/hr Metronidazole (Flagyl 500mg/100ml Ns) 100 mls @ 100 mls/hr IVPB Q8 JANNIE; Protocol Last Admin: 09/25/18 16:35 Dose: 100 mls/hr Vancomycin HCl 750 mg/ Sodium (Chloride) 250 mls @ 166.667 mls/hr IVPB Q12 JANNIE; Protocol Last Admin: 09/25/18 21:52 Dose: 166.667 mls/hr Meropenem 1 gm/ Sodium (Chloride) 100 mls @ 100 mls/hr IVPB Q8 JANNIE; Protocol Last Admin: 09/25/18 16:36 Dose: 100 mls/hr Levetiracetam 1,000 mg/ Sodium (Chloride) 110 mls @ 210 mls/hr IVPB Q12 JANNIE Last Admin: 09/25/18 08:01 Dose: 210 mls/hr Thiamine HCl 200 mg/ Sodium (Chloride) 102 mls @ 102 mls/hr IV Q8 JANNIE Last Admin: 09/25/18 16:31 Dose: 102 mls/hr Sodium Chloride (Sodium Chloride 0.9%) 500 mls @ 250 mls/hr IV .Q2H ONE Stop: 09/26/18 00:59 Lactulose (Enulose) 20 gm NG Q4 JANNIE Last Admin: 09/25/18 21:50 Dose: 20 gm Lorazepam (Ativan) 1 mg IVP Q4 PRN PRN Reason: Agitation Last Admin: 09/24/18 10:59 Dose: 1 mg Rifaximin (Xifaxan) 550 mg NG BID JANNIE; Protocol Last Admin: 09/25/18 16:30 Dose: 550 mg - Labs Labs: 09/25/18 07:40 09/25/18 04:30 PT 24.0 Seconds (9.8-13.1) H 09/24/18 04:30 INR 2.1 09/24/18 04:30 APTT 48.7 Seconds (25.6-37.1) H 09/24/18 04:30 Assessment and Plan - Assessment and Plan (Free Text) Assessment: 53 yr old male who appears to be brain . Prognosis is poor. Plan; 1. Discuss brain protocol with family and neurointensivist. EEG may be disconnected. DR. snell Neurology
[2018-09-26] MEDS: Pantoprazole 40 MG in Sodium Chloride 0.9% 100 ML IVPB SCH ×3 (00:20→13:09)
[2018-09-26] MEDS: metroNIDAZOLE 500mg/100ml NS 100 ML IVPB SCH ×2 (00:20→08:46)
[2018-09-26] MEDS: Meropenem 1 GM in Sodium Chloride 0.9% 100 ML IVPB SCH ×2 (00:20→08:48)
[2018-09-26] MEDS: Phenylephrine 60 MG in Sodium Chloride 0.9% 250 ML IV SCH ×2 (00:30→08:51)
[2018-09-26] MEDS: Fosphenytoin 100 mg/2 ml Inj IV SCH ×2 (01:51→10:35)
[2018-09-26] MEDS: Thiamine 200 MG in Sodium Chloride 0.9% 100 ML IV SCH ×2 (01:54→08:55)
[2018-09-26] MEDS: Sodium Bicarbonate 8.4% 100 MEQ in Dextrose 5% In Water 1,000 ML IV SCH ×2 (03:00→13:15)
[2018-09-26 04:58] LABS: ABG ALLEN TEST YES; ARTERIAL BLOOD GAS O2 SAT 83.7 % (95-98); ARTERIAL BLOOD GAS PCO2 48 mm/Hg (35-45); ARTERIAL BLOOD GAS PH 7.24 (7.35-7.45); ARTERIAL BLOOD GAS PO2 50 mm/Hg (80-100); ARTERIAL BLOOD GAS TCO2 22.1 mmol/L (22-28)
[2018-09-26 06:01] LABS: MEAN CELL VOLUME 89.4 fl (80.0-94.0); MEAN CORPUSCULAR HEMOGLOBIN 28.3 pg (27.0-31.0); MEAN CORPUSCULAR HGB CONC 31.7 g/dL (33.0-37.0); RBC 2.82 Mil/uL (4.40-5.90); RED CELL DISTRIBUTION WIDTH 17.2 % (11.5-14.5)
[2018-09-26 06:29] LABS: ALB/GLOB RATIO 0.7 (1.0-2.1); ALBUMIN 1.9 g/dL (3.5-5.0)
[2018-09-26 06:37] LABS: CALCIUM 4.9 mg/dL (8.4-10.2)
--- NOTE | 2018-09-26 08:25 | CON ---
DATE: 09/24/2018 NEUROLOGY CONSULT CALLED BY: Dm Nicholson MD HISTORY OF PRESENT ILLNESS: Mr. Shreyas Dillon is a 53-year-old male who has a past medical history of liver cirrhosis, treated with TIPS procedure, GI bleed; EGD showing esophageal varices, gastric varices; history of gallstones, admitted on 09/22/2018 with hematemesis, abdominal pain, . He was receiving his first unit of blood transfusion when he was found unresponsive and transferred to ICU. ACLS protocol was instituted. EG tube was found to be in esophagus. The patient did not receive since then he has been anoxic. Yesterday afternoon, neurology consult was called by Dr. Correia and Dr. Nicholson. The patient started twitching yesterday afternoon, and he was started on antiepileptic medications including Keppra and Dilantin. The patient continued to have questionable seizure activity throughout the night. Neurology was not called at that point. This morning, it was discovered that the patient had a continuous twitching episode throughout the night at which point, I ordered 1000 mg of Keppra and Dilantin as well and video EEG as well as propofol. The patient propofol. He was intubated. Twitching has stopped. It is still not clear if the twitching is epilepsy or a reflex phenomenon. PAST MEDICAL HISTORY: Anemia, herniated disk, DVT, fracture of left shoulder and left hand , gastritis, pancreatitis, chronic pain, cholelithiasis, GI bleed, alcoholic liver disease, and gastroparesis. PAST SURGICAL HISTORY: TIPS in 2016. SOCIAL HISTORY: Alcohol abuse chronically. Light cigarette smoker. Lives with his sister. Unemployed. FAMILY HISTORY: Father . Mother has breast CA. ALLERGIES: ASPIRIN AND NSAIDS. PHYSICAL EXAMINATION: NEUROLOGIC: Please note, physical examination is done with sedation. The patient does not have doll's eyes, gag. Has minimal corneal. Withdraws to painful stimuli. Reflexes are +2 in upper and lower limbs bilaterally. There is no focal seizure activity noted at this time. Video EEG is pending. He is currently on 750 mg twice a day of Keppra and 200 mg twice a day of Dilantin IV. LABORATORY DATA: CAT scan of the head was done yesterday at 09:54 and shows the following: High pattern suggestive of anoxic encephalopathy, clinical impression. MRI has been pending so far. IMPRESSION: This is a 53-year-old male who may be in status epilepticus and further propofol increase his medications. If the patient continues to twitch, I will add Vimpat as well. situation. PLAN: 1. Video EEG already ordered 24 to 48 hours. 2. Load with Keppra 1000 mg right now. Continue twice a day. 3. Load with . Continue twice a day. 4. Dilantin level and Keppra level in the morning. Appreciate neurology consult. Thank you for this interesting consultation. Ben Allison MD
--- NOTE | 2018-09-26 08:26 | PN ---
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 The patient is currently in Intensive Care Unit and he is unresponsive with some tremors. PHYSICAL EXAMINATION: VITAL SIGNS: Blood pressure is 119/41, respiratory rate 22, pulse is 114, and temperature 100. HEENT: Pupils not reactive to light. Pale mucosa of the conjunctivae. NECK: No JVD. No carotid bruits. No lymph node. No thyromegaly. CHEST AND LUNGS: Bilateral symmetrical expansion and decreased air entry in both lower lung mendoza. CARDIOVASCULAR: PMI not localized. S1 and S2. No additional sounds. ABDOMEN: Normoactive bowel sounds. No tenderness. No organomegaly. EXTREMITIES: No cyanosis, no clubbing, no edema. CENTRAL NERVOUS SYSTEM: The patient is nonresponsive, on ventilator. ASSESSMENT: 1. Status post cardiac arrest. 2. Upper gastrointestinal bleeding. 3. Severe anemia. 4. Hepatic encephalopathy. 5. Seizure disorder. PLAN: Continue seizure medications, Keppra, and Neurology consult. IV antibiotics for possible aspiration pneumonia. Guarded prognosis given the severe comorbidity of advanced alcoholic liver disease. Dm Nicholson MD
[2018-09-26 08:43] VITALS: RESP 20
[2018-09-26] MEDS: levETIRAcetam 1,000 MG in Sodium Chloride 0.9% 100 ML IVPB SCH (08:48)
[2018-09-26] MEDS: Calcium Acetate 667 MG Capsule GT SCH ×2 (08:52→13:10)
--- NOTE | 2018-09-26 09:34 | RAD ---
Date of service: 09/26/2018 HISTORY: intubated COMPARISON: 09/25/2018 FINDINGS: Tracheostomy tube terminates 8 mm proximal to the maranda. The nasogastric tube terminates in the stomach. LUNGS: There is worsening pulmonary venous congestion with moderate interstitial pulmonary edema. PLEURA: Worsening small effusions. No pneumothorax. CARDIOVASCULAR: Persistent mild cardiomegaly with prominent central vasculature. No aortic atherosclerotic calcifications present. OSSEOUS STRUCTURES: Within normal limits for the patient's age. VISUALIZED UPPER ABDOMEN: Normal. OTHER FINDINGS: None. IMPRESSION: Worsening congestive heart failure. Endotracheal tube is low in position and terminates 7 mm proximal to the maranda. Repositioning is advised. Stable position of nasogastric tube.
[2018-09-26 10:20] VITALS: TEMP 98.1
--- NOTE | 2018-09-26 10:41 | CP.PCM.PN ---
Subjective - Date & Time of Evaluation Date of Evaluation: 09/26/18 Time of Evaluation: 10:40 - Subjective Subjective: Patient unresponsive completely comatose on respirator and multiple vasopressors. Blood pressure remain systolic in the range to 70+ Worsening kidney function but patient overall condition extremely poor. And is unstable Objective - Vital Signs/Intake and Output Vital Signs (last 24 hours): Temp Pulse Resp BP Pulse Ox 98.1 F 99 H 20 83/28 L 20 L 09/26/18 10:00 09/26/18 10:00 09/26/18 10:00 09/26/18 10:00 09/26/18 10:00 Intake and Output: 09/26/18 09/26/18 06:59 18:59 Intake Total 2734 980 Output Total 250 Balance 2484 980 - Medications Medications: Current Medications Acetaminophen (Tylenol 650mg/20.3ml Solution Ud) 650 mg PO Q6 PRN PRN Reason: Temperature Calcium Acetate (Phoslo) 1,334 mg GT TID JANNIE Last Admin: 09/26/18 08:52 Dose: 1,334 mg Fosphenytoin Sodium (Cerebyx) 200 mg IV Q8 JANNIE Last Admin: 09/26/18 10:35 Dose: 200 mg Pantoprazole Sodium 40 mg/ (Sodium Chloride) 100 mls @ 20 mls/hr IVPB Q5H JANNIE Last Admin: 09/26/18 08:53 Dose: 20 mls/hr Octreotide Acetate 1,250 mcg/ (Sodium Chloride) 252.5 mls @ 10.1 mls/hr IV .Q24H JANNIE; Protocol Last Admin: 09/25/18 16:27 Dose: 10.1 mls/hr Metronidazole (Flagyl 500mg/100ml Ns) 100 mls @ 100 mls/hr IVPB Q8 JANNIE; Protocol Last Admin: 09/26/18 08:46 Dose: 100 mls/hr Vancomycin HCl 750 mg/ Sodium (Chloride) 250 mls @ 166.667 mls/hr IVPB Q12 JANNIE; Protocol Last Admin: 09/25/18 21:52 Dose: 166.667 mls/hr Meropenem 1 gm/ Sodium (Chloride) 100 mls @ 100 mls/hr IVPB Q8 JANNIE; Protocol Last Admin: 09/26/18 08:48 Dose: 100 mls/hr Levetiracetam 1,000 mg/ Sodium (Chloride) 110 mls @ 210 mls/hr IVPB Q12 JANNIE Last Admin: 09/26/18 08:48 Dose: 210 mls/hr Thiamine HCl 200 mg/ Sodium (Chloride) 102 mls @ 102 mls/hr IV Q8 JANNIE Last Admin: 09/26/18 08:55 Dose: 102 mls/hr Sodium Chloride (Sodium Chloride 0.9%) 250 mls @ 999 mls/hr IV .Q16M JANNIE Stop: 09/27/18 00:27 Last Admin: 09/26/18 00:05 Dose: 999 mls/hr Phenylephrine HCl 60 mg/ (Sodium Chloride) 256 mls @ 46.08 mls/hr IV .Q5H34M [facility]; Protocol Stop: 09/27/18 00:29 Last Admin: 09/26/18 08:51 Dose: 180 mcg/min, 46.08 mls/hr Norepinephrine Bitartrate 16 (mg/ Dextrose) 266 mls @ 29.93 mls/hr IV .Q8H54M [facility]; Protocol Stop: 09/26/18 10:51 Last Admin: 09/26/18 05:59 Dose: 30 mcg/min, 29.93 mls/hr Sodium Bicarbonate 100 meq/ (Dextrose) 1,100 mls @ 100 mls/hr IV .Q11H [facility] Stop: 09/27/18 02:32 Last Admin: 09/26/18 03:00 Dose: 100 mls/hr Lactulose (Enulose) 20 gm NG Q4 [facility] Last Admin: 09/26/18 08:46 Dose: 20 gm Rifaximin (Xifaxan) 550 mg NG BID [facility]; Protocol Last Admin: 09/26/18 08:55 Dose: 550 mg - Labs Labs: 09/26/18 05:00 09/26/18 05:00 PT 24.0 Seconds (9.8-13.1) H 09/24/18 04:30 INR 2.1 09/24/18 04:30 APTT 48.7 Seconds (25.6-37.1) H 09/24/18 04:30 - Constitutional Appears: In Acute Distress - Eye Exam Eye Exam: Conjunctival injection - ENT Exam ENT Exam: Mucous Membranes Moist - Neck Exam Neck Exam: absent: Lymphadenopathy - Respiratory Exam Respiratory Exam: Rales, Rhonchi. absent: Chest Wall Tenderness - Cardiovascular Exam Cardiovascular Exam: absent: Gallop, Rubs - GI/Abdominal Exam GI & Abdominal Exam: Guarding - Extremities Exam Extremities Exam: absent: Calf Tenderness - Back Exam Back Exam: absent: CVA tenderness (L), CVA tenderness (R) - Neurological Exam Neurological Exam: Altered - Psychiatric Exam Psychiatric exam: Flat Affect - Skin Skin Exam: absent: Cyanosis Assessment and Plan - Assessment and Plan (Free Text) Assessment: Assessment: critical Acute Kidney Injury (N17.9) likely due to ATN/shock hyperkalemia hypocalcemia hyperphosphatemia cardiac arrest x 2, hyperammonemia, lactic acidosis, shock requiring pressors, coagulopathy severe anoxic brain injury with seizures hx of Etoh cirrhosis s/p TIPS, variceal bleed Plan Pt with extremely poor prognosis and likely terminally ill with multi-system organ failure. hemodynamically unstable, severe anoxic brain injury. Hence, not a candidate for renal replacement therapy at this time. Unless, show evidence of brain function and hemodynamically stable. Maintain hemodynamics stable. Avoid hypotension. Patient not on ACEI/ARB due to recent DMITRIY Monitor Input/Output, daily weights and renal function with basic metabolic panel Discussed with the returns supervisor they trying to reach out to family to just continue supportive management. Prognosis is extremely poor
--- NOTE | 2018-09-26 12:35 | CP.PCM.PN ---
Subjective - Date & Time of Evaluation Date of Evaluation: 09/26/18 Time of Evaluation: 12:10 - Subjective Subjective: Neuro Follow-Up Note: Mr. Sepulveda was evaluated in the ICU this afternoon. He remains intubated, off sedation. He is unable to follow commands. Family has been contacted; waiting on their decisions regarding goals of care. Chart reviewed; discussed with staff. ROS unobtainable due to pt's current status. Objective - Vital Signs/Intake and Output Vital Signs (last 24 hours): Temp Pulse Resp BP Pulse Ox 98.1 F 97 H 20 78/29 L 99 09/26/18 12:00 09/26/18 12:00 09/26/18 12:00 09/26/18 12:00 09/26/18 12:00 Intake and Output: 09/26/18 09/26/18 06:59 18:59 Intake Total 2734 980 Output Total 250 Balance 2484 980 - Medications Medications: Current Medications Acetaminophen (Tylenol 650mg/20.3ml Solution Ud) 650 mg PO Q6 PRN PRN Reason: Temperature Calcium Acetate (Phoslo) 1,334 mg GT TID JANNIE Last Admin: 09/26/18 08:52 Dose: 1,334 mg Fosphenytoin Sodium (Cerebyx) 200 mg IV Q8 JANNIE Last Admin: 09/26/18 10:35 Dose: 200 mg Pantoprazole Sodium 40 mg/ (Sodium Chloride) 100 mls @ 20 mls/hr IVPB Q5H JANNIE Last Admin: 09/26/18 08:53 Dose: 20 mls/hr Octreotide Acetate 1,250 mcg/ (Sodium Chloride) 252.5 mls @ 10.1 mls/hr IV .Q24H JANNIE; Protocol Last Admin: 09/25/18 16:27 Dose: 10.1 mls/hr Metronidazole (Flagyl 500mg/100ml Ns) 100 mls @ 100 mls/hr IVPB Q8 JANNIE; Protocol Last Admin: 09/26/18 08:46 Dose: 100 mls/hr Vancomycin HCl 750 mg/ Sodium (Chloride) 250 mls @ 166.667 mls/hr IVPB Q12 JANNIE; Protocol Last Admin: 09/25/18 21:52 Dose: 166.667 mls/hr Meropenem 1 gm/ Sodium (Chloride) 100 mls @ 100 mls/hr IVPB Q8 JANNIE; Protocol Last Admin: 09/26/18 08:48 Dose: 100 mls/hr Levetiracetam 1,000 mg/ Sodium (Chloride) 110 mls @ 210 mls/hr IVPB Q12 JANNIE Last Admin: 09/26/18 08:48 Dose: 210 mls/hr Thiamine HCl 200 mg/ Sodium (Chloride) 102 mls @ 102 mls/hr IV Q8 JANNIE Last Admin: 09/26/18 08:55 Dose: 102 mls/hr Sodium Chloride (Sodium Chloride 0.9%) 250 mls @ 999 mls/hr IV .Q16M JANNIE Stop: 09/27/18 00:27 Last Admin: 09/26/18 00:05 Dose: 999 mls/hr Phenylephrine HCl 60 mg/ (Sodium Chloride) 256 mls @ 46.08 mls/hr IV .Q5H34M S ; Protocol Stop: 09/27/18 00:29 Last Admin: 09/26/18 08:51 Dose: 180 mcg/min, 46.08 mls/hr Sodium Bicarbonate 100 meq/ (Dextrose) 1,100 mls @ 100 mls/hr IV .Q11H [facility] Stop: 09/27/18 02:32 Last Admin: 09/26/18 03:00 Dose: 100 mls/hr Lactulose (Enulose) 20 gm NG Q4 JANNIE Last Admin: 09/26/18 08:46 Dose: 20 gm Rifaximin (Xifaxan) 550 mg NG BID [facility]; Protocol Last Admin: 09/26/18 08:55 Dose: 550 mg - Labs Labs: 09/26/18 05:00 09/26/18 05:00 PT 24.0 Seconds (9.8-13.1) H 09/24/18 04:30 INR 2.1 09/24/18 04:30 APTT 48.7 Seconds (25.6-37.1) H 09/24/18 04:30 - Constitutional Appears: Other (intubated, off sedation) - Head Exam Head Exam: NORMOCEPHALIC - Eye Exam Eye Exam: Scleral icterus. absent: EOMI, Normal appearance, PERRL Pupil Exam: absent: NORMAL ACCOMODATION, PERRL Additional comments: pupils fixed at 7 mm b/l no dolls eyes no corneals - ENT Exam ENT Exam: Mucous Membranes Moist Additional comments: intubated - Neck Exam Neck Exam: Normal Inspection - Respiratory Exam Respiratory Exam: absent: NORMAL BREATHING PATTERN (intubated) - Cardiovascular Exam Cardiovascular Exam: REGULAR RHYTHM (hr 90's) - Rectal Exam Additional comments: rectal tube in place - Exam Additional comments: barrientos cath in place - Extremities Exam Extremities Exam: Pedal Edema. absent: Full ROM Additional comments: extremities flaccid; no tone noted to BUE or BLE - Neurological Exam Neurological Exam: Altered Neuro motor strength exam: Left Upper Extremity: 0, Right Upper Extremity: 0, Left Lower Extremity: 0, Right Lower Extremity: 0 Additional comments: Pt is intubated; no sedation Does not localize pain; no purposeful nor non-purposeful movements with sternal rub. Does not follow commands Pupils fixed b/l No dolls eyes, no corneals, no gag Extremities flaccid; no tone noted to BUE or BLE No tremors noted Unable to elicit plantar response - Psychiatric Exam Additional comments: unable to assess 2/2 intubated - Skin Additional comments: edematous discoloration noted to b/l feet Assessment and Plan (1) Anoxic brain injury Assessment & Plan: Imaging reviewed: -EEG (09/25/18): This is an abnormal video-EEG monitoring study due to the presence of excessive diffuse attenuated slowing, probably electro-cerebral angela ence. These findings support the diagnosis of severe, bihemispheric cerebral dysfunction, this is non specific, however it is usually seen in patient with diffuse hypoxic brain injury, other toxic metabolic encephalopathies, however high dose sedatives/anesthetics could cause the same VEEG findings, clinical correlation is recommended. -CT Head (09/23/18): Overall pattern highly suggestive of anoxic encephalopathy in proper clinical setting. No intracranial hemorrhage. Basilar cisterns are marginally diminished no ney impression the brainstem appreciated at this time however. Continued clinical and CT follow-up advised. -Palliative care -Pending family involvement for determination of goals of care. -Brain protocol after pt's family discusses options with medical team. -Discussed with ICU team. -Notify neuro team of any acute changes in pt's condition. Diana Weinberg, KEREN, ACUTE CARE PHYSICAL THERAPIST d/w Dr. Allison Status: Acute
--- NOTE | 2018-09-26 13:16 | CP.PCM.PN ---
Subjective - Date & Time of Evaluation Date of Evaluation: 09/26/18 Time of Evaluation: 13:16 - Subjective Subjective: ID note- Pt. seen and examined in ICU. patient is comatose and clinically much worse. anuric. as per nurse seen by palliative care nurse and pt. might be terminally extubated today once family makes decision. Objective - Vital Signs/Intake and Output Vital Signs (last 24 hours): Temp Pulse Resp BP Pulse Ox 98.1 F 97 H 20 78/29 L 99 09/26/18 12:00 09/26/18 12:00 09/26/18 12:00 09/26/18 12:00 09/26/18 12:00 Intake and Output: 09/26/18 09/26/18 06:59 18:59 Intake Total 2734 980 Output Total 250 Balance 2484 980 - Medications Medications: Current Medications Acetaminophen (Tylenol 650mg/20.3ml Solution Ud) 650 mg PO Q6 PRN PRN Reason: Temperature Calcium Acetate (Phoslo) 1,334 mg GT TID JANNIE Last Admin: 09/26/18 13:10 Dose: 1,334 mg Fosphenytoin Sodium (Cerebyx) 200 mg IV Q8 JANNIE Last Admin: 09/26/18 10:35 Dose: 200 mg Pantoprazole Sodium 40 mg/ (Sodium Chloride) 100 mls @ 20 mls/hr IVPB Q5H JANNIE Last Admin: 09/26/18 13:09 Dose: 20 mls/hr Octreotide Acetate 1,250 mcg/ (Sodium Chloride) 252.5 mls @ 10.1 mls/hr IV .Q24H JANNIE; Protocol Last Admin: 09/25/18 16:27 Dose: 10.1 mls/hr Vancomycin HCl 750 mg/ Sodium (Chloride) 250 mls @ 166.667 mls/hr IVPB Q12 JANNIE; Protocol Last Admin: 09/25/18 21:52 Dose: 166.667 mls/hr Meropenem 1 gm/ Sodium (Chloride) 100 mls @ 100 mls/hr IVPB Q8 JANNIE; Protocol Last Admin: 09/26/18 08:48 Dose: 100 mls/hr Levetiracetam 1,000 mg/ Sodium (Chloride) 110 mls @ 210 mls/hr IVPB Q12 JANNIE Last Admin: 09/26/18 08:48 Dose: 210 mls/hr Thiamine HCl 200 mg/ Sodium (Chloride) 102 mls @ 102 mls/hr IV Q8 JANNIE Last Admin: 09/26/18 08:55 Dose: 102 mls/hr Sodium Chloride (Sodium Chloride 0.9%) 250 mls @ 999 mls/hr IV .Q16M [facility] Stop: 09/27/18 00:27 Last Admin: 09/26/18 00:05 Dose: 999 mls/hr Phenylephrine HCl 60 mg/ (Sodium Chloride) 256 mls @ 46.08 mls/hr IV .Q5H34M [facility]; Protocol Stop: 09/27/18 00:29 Last Admin: 09/26/18 08:51 Dose: 180 mcg/min, 46.08 mls/hr Sodium Bicarbonate 100 meq/ (Dextrose) 1,100 mls @ 100 mls/hr IV .Q11H [facility] Stop: 09/27/18 02:32 Last Admin: 09/26/18 03:00 Dose: 100 mls/hr Lactulose (Enulose) 20 gm NG Q4 [facility] Last Admin: 09/26/18 08:46 Dose: 20 gm Rifaximin (Xifaxan) 550 mg NG BID [facility]; Protocol Last Admin: 09/26/18 08:55 Dose: 550 mg - Labs Labs: - Additional Findings Additional findings: - Constitutional Additional comments: Intubated and unresponsive, comatose - ENT Exam Additional comments: ET tube - Respiratory Exam Additional comments: decreased breath sounds bibasilar is on the vent - Cardiovascular Exam Cardiovascular Exam: Tachycardia, +S1, +S2 - GI/Abdominal Exam GI & Abdominal Exam: Additional comments: No distention - Extremities Exam Extremities exam: Positive for: normal inspection - Neurological Exam Neurological exam: comatose Laboratory Results - last 72 hr 09/22/18 09/23/18 09/23/18 14:05 10:29 14:00 WBC RBC Hgb Hct MCV MCH MCHC RDW Plt Count MPV Neut % (Auto) Lymph % (Auto) [place] % (Auto) Eos % (Auto) Baso % (Auto) Neut # (Auto) Lymph # (Auto) [place] # (Auto) Eos # (Auto) Baso # (Auto) Neutrophils % (Manual) Band Neutrophils % Lymphocytes % (Manual) Monocytes % (Manual) Nucleated RBC % Platelet Estimate Large Platelets Hypochromasia (manual) Poikilocytosis (manual Anisocytosis (manual) Tear Drop Cells Ovalocytes PT INR APTT pCO2 pO2 HCO3 ABG pH ABG Total CO2 ABG O2 Saturation ABG Base Excess Jose Test ABG Potassium A-a O2 Difference Glucose Lactate Vent Mode Mechanical Rate FiO2 Tidal Volume PEEP Blood Gas Comments Crit Value Called To Crit Value Called By Crit Value Read Back Blood Gas Notified Time Sodium Potassium Chloride Carbon Dioxide Anion Gap BUN Creatinine Est GFR ( Amer) Est GFR (Non-Af Amer) POC Glucose (mg/dL) Random Glucose Lactic Acid Calcium Phosphorus Magnesium Total Bilirubin AST ALT Alkaline Phosphatase Ammonia Troponin I 0.2540 H* Total Protein Albumin Globulin Albumin/Globulin Ratio Procalcitonin 4.11 H Arterial Blood Potassium Vancomycin Trough HSV I IgG Ab HSV II IgG Blood Type O POSITIVE Antibody Screen Negative Crossmatch See Detail BBK History Checked Patient has bt 09/23/18 09/23/18 09/23/18 14:00 14:00 14:00 WBC RBC Hgb Hct MCV MCH MCHC RDW Plt Count MPV Neut % (Auto) Lymph % (Auto) [place] % (Auto) Eos % (Auto) Baso % (Auto) Neut # (Auto) Lymph # (Auto) [place] # (Auto) Eos # (Auto) Baso # (Auto) Neutrophils % (Manual) Band Neutrophils % Lymphocytes % (Manual) Monocytes % (Manual) Nucleated RBC % Platelet Estimate Large Platelets Hypochromasia (manual) Poikilocytosis (manual Anisocytosis (manual) Tear Drop Cells Ovalocytes PT INR APTT pCO2 pO2 HCO3 ABG pH ABG Total CO2 ABG O2 Saturation ABG Base Excess Jose Test ABG Potassium A-a O2 Difference Glucose Lactate Vent Mode Mechanical Rate FiO2 Tidal Volume PEEP Blood Gas Comments Crit Value Called To Crit Value Called By Crit Value Read Back Blood Gas Notified Time Sodium 147 Potassium 6.5 H* D Chloride 120 H Carbon Dioxide 12 L Anion Gap 22 H BUN 50 H Creatinine 1.9 H Est GFR ( Amer) 45 Est GFR (Non-Af Amer) 38 POC Glucose (mg/dL) Random Glucose 141 H Lactic Acid 10.2 H* Calcium 6.6 L Phosphorus Magnesium Total Bilirubin 1.2 AST 218 H D ALT 65 Alkaline Phosphatase 108 Ammonia Troponin I Total Protein 5.7 L Albumin 2.4 L Globulin 3.3 Albumin/Globulin Ratio 0.7 L Procalcitonin Arterial Blood Potassium Vancomycin Trough HSV I IgG Ab 35.30 H HSV II IgG <0.90 Blood Type Antibody Screen Crossmatch BBK History Checked 09/23/18 09/23/18 09/24/18 21:23 21:41 04:05 WBC RBC Hgb Hct MCV MCH MCHC RDW Plt Count MPV Neut % (Auto) Lymph % (Auto) [place] % (Auto) Eos % (Auto) Baso % (Auto) Neut # (Auto) Lymph # (Auto) [place] # (Auto) Eos # (Auto) Baso # (Auto) Neutrophils % (Manual) Band Neutrophils % Lymphocytes % (Manual) Monocytes % (Manual) Nucleated RBC % Platelet Estimate Large Platelets Hypochromasia (manual) Poikilocytosis (manual Anisocytosis (manual) Tear Drop Cells Ovalocytes PT INR APTT pCO2 58 H pO2 90 HCO3 10.1 L ABG pH 6.97 L* ABG Total CO2 15.1 L ABG O2 Saturation 98.8 H ABG Base Excess -18.8 L Jose Test Yes ABG Potassium 7.0 H* A-a O2 Difference 194.0 Glucose 194 H Lactate 9.6 H* Vent Mode A/c Mechanical Rate 16 FiO2 50.0 Tidal Volume 500 PEEP 5 Blood Gas Comments Crit Value Called To Luke muniz Crit Value Called By 292 Crit Value Read Back Y Blood Gas Notified Time 430 Sodium 150 H 143.0 Potassium 6.8 H* Chloride 118 H 116.0 H Carbon Dioxide 12 L Anion Gap 27 H BUN 57 H Creatinine 3.2 H Est GFR ( Amer) 25 Est GFR (Non-Af Amer) 21 POC Glucose (mg/dL) 153 H Random Glucose 144 H Lactic Acid Calcium 6.6 L Phosphorus Magnesium Total Bilirubin AST ALT Alkaline Phosphatase Ammonia Troponin I Total Protein Albumin Globulin Albumin/Globulin Ratio Procalcitonin Arterial Blood Potassium 7.0 H* Vancomycin Trough HSV I IgG Ab HSV II IgG Blood Type Antibody Screen Crossmatch BBK History Checked 09/24/18 09/24/18 09/24/18 04:30 04:30 04:30 WBC 37.8 H* RBC 2.86 L Hgb 7.9 L Hct 26.3 L MCV 91.9 D MCH 27.7 MCHC 30.1 L RDW 17.6 H Plt Count 226 MPV 8.6 Neut % (Auto) 91.2 H Lymph % (Auto) 3.2 L [place] % (Auto) 5.3 Eos % (Auto) 0.0 Baso % (Auto) 0.3 Neut # (Auto) 34.5 H Lymph # (Auto) 1.2 [place] # (Auto) 2.0 H Eos # (Auto) 0.0 Baso # (Auto) 0.1 Neutrophils % (Manual) 85 H Band Neutrophils % 8 H Lymphocytes % (Manual) 2 L Monocytes % (Manual) 5 Nucleated RBC % 2 H Platelet Estimate Normal Large Platelets Present Hypochromasia (manual) Moderate Poikilocytosis (manual Slight Anisocytosis (manual) Slight Tear Drop Cells Slight Ovalocytes Slight PT INR APTT pCO2 pO2 HCO3 ABG pH ABG Total CO2 ABG O2 Saturation ABG Base Excess Jose Test ABG Potassium A-a O2 Difference Glucose Lactate Vent Mode Mechanical Rate FiO2 Tidal Volume PEEP Blood Gas Comments Crit Value Called To Crit Value Called By Crit Value Read Back Blood Gas Notified Time Sodium 148 Potassium 6.3 H* Chloride 112 H Carbon Dioxide 19 L Anion Gap 23 H BUN 62 H Creatinine 3.7 H Est GFR ( Amer) 21 Est GFR (Non-Af Amer) 17 POC Glucose (mg/dL) Random Glucose 188 H Lactic Acid Calcium 6.1 L Phosphorus 15.5 H Magnesium 2.1 Total Bilirubin 2.0 H AST 641 H D ALT 155 H D Alkaline Phosphatase 100 Ammonia Troponin I Total Protein 5.5 L Albumin 2.5 L Globulin 3.0 Albumin/Globulin Ratio 0.8 L Procalcitonin Arterial Blood Potassium Vancomycin Trough 11.5 H HSV I IgG Ab HSV II IgG Blood Type Antibody Screen Crossmatch BBK History Checked 09/24/18 09/24/18 09/24/18 04:30 04:30 04:30 WBC RBC Hgb Hct MCV MCH MCHC RDW Plt Count MPV Neut % (Auto) Lymph % (Auto) [place] % (Auto) Eos % (Auto) Baso % (Auto) Neut # (Auto) Lymph # (Auto) [place] # (Auto) Eos # (Auto) Baso # (Auto) Neutrophils % (Manual) Band Neutrophils % Lymphocytes % (Manual) Monocytes % (Manual) Nucleated RBC % Platelet Estimate Large Platelets Hypochromasia (manual) Poikilocytosis (manual Anisocytosis (manual) Tear Drop Cells Ovalocytes PT 24.0 H INR 2.1 APTT 48.7 H pCO2 pO2 HCO3 ABG pH ABG Total CO2 ABG O2 Saturation ABG Base Excess Jose Test ABG Potassium A-a O2 Difference Glucose Lactate Vent Mode Mechanical Rate FiO2 Tidal Volume PEEP Blood Gas Comments Crit Value Called To Crit Value Called By Crit Value Read Back Blood Gas Notified Time Sodium Potassium Chloride Carbon Dioxide Anion Gap BUN Creatinine Est GFR ( Amer) Est GFR (Non-Af Amer) POC Glucose (mg/dL) Random Glucose Lactic Acid 10.3 H* Calcium Phosphorus Magnesium Total Bilirubin AST ALT Alkaline Phosphatase Ammonia 383 H* D Troponin I Total Protein Albumin Globulin Albumin/Globulin Ratio Procalcitonin Arterial Blood Potassium Vancomycin Trough HSV I IgG Ab HSV II IgG Blood Type Antibody Screen Crossmatch BBK History Checked 09/24/18 09/24/18 09/25/18 10:22 21:07 04:30 WBC RBC Hgb Hct MCV MCH MCHC RDW Plt Count MPV Neut % (Auto) Lymph % (Auto) [place] % (Auto) Eos % (Auto) Baso % (Auto) Neut # (Auto) Lymph # (Auto) [place] # (Auto) Eos # (Auto) Baso # (Auto) Neutrophils % (Manual) Band Neutrophils % Lymphocytes % (Manual) Monocytes % (Manual) Nucleated RBC % Platelet Estimate Large Platelets Hypochromasia (manual) Poikilocytosis (manual Anisocytosis (manual) Tear Drop Cells Ovalocytes PT INR APTT pCO2 39 pO2 113 H HCO3 16.3 L ABG pH 7.22 L ABG Total CO2 17.2 L ABG O2 Saturation 99.9 H ABG Base Excess -11.1 L Jose Test Yes ABG Potassium 5.1 A-a O2 Difference 409.0 Glucose 308 H Lactate 12.1 H* Vent Mode Prvc/ac Mechanical Rate 28 FiO2 80.0 Tidal Volume 500 PEEP 5 Blood Gas Comments Lac=12.1 Crit Value Called To gina Joe Crit Value Called By 22 Crit Value Read Back Y Blood Gas Notified Time 2112 Sodium 145 140.0 Potassium 5.9 H Chloride 110 H 104.0 Carbon Dioxide 19 L Anion Gap 22 H BUN 66 H Creatinine 4.0 H Est GFR ( Amer) 19 Est GFR (Non-Af Amer) 16 POC Glucose (mg/dL) Random Glucose 168 H Lactic Acid Calcium 5.7 L* Phosphorus Magnesium Total Bilirubin AST ALT Alkaline Phosphatase Ammonia 58 H D Troponin I Total Protein Albumin Globulin Albumin/Globulin Ratio Procalcitonin Arterial Blood Potassium 5.1 Vancomycin Trough HSV I IgG Ab HSV II IgG Blood Type Antibody Screen Crossmatch BBK History Checked 09/25/18 09/25/18 09/25/18 04:30 05:07 07:40 WBC 13.0 H D RBC 2.38 L Hgb 6.7 L Hct 20.7 L MCV 86.9 D MCH 28.0 MCHC 32.2 L RDW 17.1 H Plt Count 47 L D MPV Neut % (Auto) Lymph % (Auto) [place] % (Auto) Eos % (Auto) Baso % (Auto) Neut # (Auto) Lymph # (Auto) [place] # (Auto) Eos # (Auto) Baso # (Auto) Neutrophils % (Manual) Band Neutrophils % Lymphocytes % (Manual) Monocytes % (Manual) Nucleated RBC % Platelet Estimate Large Platelets Hypochromasia (manual) Poikilocytosis (manual Anisocytosis (manual) Tear Drop Cells Ovalocytes PT INR APTT pCO2 39 pO2 90 HCO3 21.9 ABG pH 7.35 ABG Total CO2 22.7 ABG O2 Saturation 98.4 H ABG Base Excess -3.8 L Jose Test Yes ABG Potassium 4.3 A-a O2 Difference 432.0 Glucose 325 H Lactate 6.3 H* Vent Mode A/c Mechanical Rate 28 FiO2 80.0 Tidal Volume 500 PEEP 5 Blood Gas Comments Crit Value Called To Luke raymundo Crit Value Called By 333 Crit Value Read Back Y Blood Gas Notified Time 519 Sodium 144 142.0 Potassium 4.1 Chloride 106 107.0 Carbon Dioxide 24 Anion Gap 18 BUN 87 H Creatinine 4.6 H Est GFR ( Amer) 16 Est GFR (Non-Af Amer) 14 POC Glucose (mg/dL) Random Glucose 296 H Lactic Acid Calcium 4.6 L* Phosphorus Magnesium Total Bilirubin 4.3 H AST 2649 H ALT 564 H D Alkaline Phosphatase 95 Ammonia Troponin I Total Protein 4.5 L Albumin 2.0 L Globulin 2.5 Albumin/Globulin Ratio 0.8 L Procalcitonin Arterial Blood Potassium 4.3 Vancomycin Trough HSV I IgG Ab HSV II IgG Blood Type Antibody Screen Crossmatch BBK History Checked 09/25/18 09/26/1809/26/19 17:12 04:00 04:31 WBC RBC Hgb Hct MCV MCH MCHC RDW Plt Count MPV Neut % (Auto) Lymph % (Auto) [place] % (Auto) Eos % (Auto) Baso % (Auto) Neut # (Auto) Lymph # (Auto) [place] # (Auto) Eos # (Auto) Baso # (Auto) Neutrophils % (Manual) Band Neutrophils % Lymphocytes % (Manual) Monocytes % (Manual) Nucleated RBC % Platelet Estimate Large Platelets Hypochromasia (manual) Poikilocytosis (manual Anisocytosis (manual) Tear Drop Cells Ovalocytes PT INR APTT pCO2 48 H pO2 50 L HCO3 19.0 L ABG pH 7.24 L ABG Total CO2 22.1 ABG O2 Saturation 83.7 L ABG Base Excess -6.9 L Jose Test Yes ABG Potassium 5.3 H A-a O2 Difference 603.0 Glucose 104 Lactate 7.0 H* Vent Mode A/c Mechanical Rate 20 FiO2 100.0 Tidal Volume 500 PEEP 5 Blood Gas Comments Crit Value Called To Skylar hernandez rn Crit Value Called By 302 Crit Value Read Back Y Blood Gas Notified Time 458 Sodium 143.0 Potassium Chloride 110.0 H Carbon Dioxide Anion Gap BUN Creatinine Est GFR ( Amer) Est GFR (Non-Af Amer) POC Glucose (mg/dL) Random Glucose Lactic Acid Calcium Phosphorus Magnesium Total Bilirubin AST ALT Alkaline Phosphatase Ammonia 72 H D Troponin I Total Protein Albumin Globulin Albumin/Globulin Ratio Procalcitonin Arterial Blood Potassium 5.3 H Vancomycin Trough HSV I IgG Ab HSV II IgG Blood Type O POSITIVE Antibody Screen Negative Crossmatch See Detail BBK History Checked Patient has bt 09/26/18 09/26/18 05:00 05:00 WBC 25.0 H D RBC 2.82 L Hgb 8.0 L Hct 25.2 L MCV 89.4 D MCH 28.3 MCHC 31.7 L RDW 17.2 H Plt Count 55 L MPV Neut % (Auto) Lymph % (Auto) [place] % (Auto) Eos % (Auto) Baso % (Auto) Neut # (Auto) Lymph # (Auto) [place] # (Auto) Eos # (Auto) Baso # (Auto) Neutrophils % (Manual) Band Neutrophils % Lymphocytes % (Manual) Monocytes % (Manual) Nucleated RBC % Platelet Estimate Large Platelets Hypochromasia (manual) Poikilocytosis (manual Anisocytosis (manual) Tear Drop Cells Ovalocytes PT INR APTT pCO2 pO2 HCO3 ABG pH ABG Total CO2 ABG O2 Saturation ABG Base Excess Jose Test ABG Potassium A-a O2 Difference Glucose Lactate Vent Mode Mechanical Rate FiO2 Tidal Volume PEEP Blood Gas Comments Crit Value Called To Crit Value Called By Crit Value Read Back Blood Gas Notified Time Sodium 146 Potassium 5.0 Chloride 110 H Carbon Dioxide 21 L Anion Gap 20 BUN 95 H Creatinine 5.4 H Est GFR ( Amer) 14 Est GFR (Non-Af Amer) 11 POC Glucose (mg/dL) Random Glucose 101 Lactic Acid Calcium 4.9 L* Phosphorus 8.9 H Magnesium 1.8 Total Bilirubin 5.5 H AST 2335 H ALT 646 H Alkaline Phosphatase 142 H D Ammonia Troponin I Total Protein 4.4 L Albumin 1.9 L Globulin 2.5 Albumin/Globulin Ratio 0.7 L Procalcitonin Arterial Blood Potassium Vancomycin Trough HSV I IgG Ab HSV II IgG Blood Type Antibody Screen Crossmatch BBK History Checked Microbiology 09/23/18 10:30 Blood-Venous Blood Culture - Preliminary NO GROWTH AFTER 3 DAYS 09/23/18 10:41 Blood-Venous Blood Culture - Preliminary NO GROWTH AFTER 3 DAYS 09/23/18 19:00 Urine,Catheterized Urine Culture - Final No Growth (<1,000 CFU/ML) 09/23/18 13:28 Sputum Gram Stain - Final 09/23/18 13:28 Sputum Sputum Culture - Final Escherichia Coli Staphylococcus Aureus 09/23/18 14:26 Naris MRSA Culture (Admit) - Final MRSA NOT DETECTED Accession No. : [id number] Patient Name / ID : LIANET Wilks / [id number] Exam Date : 09/26/2018 03:57:18 ( Approved ) Study Comment : Sex / Age : M / 53Y Creator : Lary Willard MD Dictator : Lary Willard MD Crm Campaign Manager : Plaster Helper : Lary Willard MD Approver2 : Report Date : 09/26/2018 09:29:03 My Comment : Date of service: 09/26/2018 HISTORY: intubated COMPARISON: 09/25/2018 FINDINGS: Tracheostomy tube terminates 8 mm proximal to the maranda. The nasogastric tube terminates in the stomach. LUNGS: There is worsening pulmonary venous congestion with moderate interstitial pulmonary edema. PLEURA: Worsening small effusions. No pneumothorax. CARDIOVASCULAR: Persistent mild cardiomegaly with prominent central vasculature. No aortic atherosclerotic calcifications present. OSSEOUS STRUCTURES: Within normal limits for the patient's age. VISUALIZED UPPER ABDOMEN: Normal. OTHER FINDINGS: None. IMPRESSION: Worsening congestive heart failure. Endotracheal tube is low in position and terminates 7 mm proximal to the maranda. Repositioning is advised. Stable position of nasogastric tube. Assessment and Plan (1) Acute gastrointestinal bleeding Status: Acute (2) Alcohol abuse with alcohol-induced disorder Status: Acute (3) Leukocytosis Status: Acute (4) Anemia Status: Acute (5) GI bleed Status: Acute (6) Aspiration pneumonia Status: Acute - Assessment and Plan (Free Text) Assessment: A/P- 53 year old male with h/o GI bleed, ETOH abuse, ETOH cirrhosis and variceal bleed s/p TIPS who was admitted with vomiting and bad pain and found to have severe anemia and post PRBC transfusion developed reaaction to the transfusion and unresponsive was coded and now is intubated in ICU. pt. is comatose on the vent on 2 pressors renal failure blood cx- neg x 2 sputum cx- ESBL e.coli and MSSA high lactate leukocytosis Plan- continue with IV meropnem 1 gram x2rcfed. day #4 continue with IV vanco as well day #4 keep vanco trough <15. prognosis very poor. all labs , imaging and chart notes reviewed. critical care time 40 minutes.
--- NOTE | 2018-09-26 14:10 | CP.PCM.CON ---
History of Present Illness - History of Present Illness History of Present Illness: Palliative Care Consult requested by Dr Swan Patient is a 53 year old male who presented to the ED on 09/22/18 with vomiting. He was recently in the ED in the previous week for seizure and then discharged. He states that since being discharged he had been vomiting blood and having abdominal pain. Lab work was completed in the ED and patient hgb was 5.5 and hct 16. He was then admitted to telemetry with upper GI bleed, symptomatic anemia, and seizure disorder. While on telemetry unit, [place] blue was called and ACLS procedures performed. Patient was intubated and sent to the ICU and is currently unresponsive. Patient has a history of multiple hospitalizations and non compliance with medications. PMH: seizures, gastritis, HTN, Anemia, DVT, cholelithiasis, HTN, Pancreatitis, pneumonia Soc hx: etoh abuse (last drink 4 months ago), Fam hx: Father-ME, Mother-breast ca 09/25/18 CXR: Pulmonary vascular congestion, left basilar atelectasis 09/25/18 EEG: Sever bihemispheric cerebral dysfunction 09/26/18 wbc 25, hgb 8.0 hct 25.2 Review of Systems - Review of Systems Review of Systems: ROS not obtained from patient, patient currently non responsive on vent Past Patient History - Infectious Disease Hx of Infectious Diseases: None - Tetanus Immunizations Tetanus Immunization: Up to Date - Past Medical History & Family History Past Medical History?: Yes - Past Social History Alcohol: > 2 Drinks/Day Drugs: Denies - CARDIAC Hx Congestive Heart Failure: No Hx Hypercholesterolemia: No Hx Hypertension: Yes - PULMONARY Hx Pneumonia: Yes - NEUROLOGICAL Hx Seizures: Yes - HEENT Hx HEENT Problems: No - RENAL Hx Chronic Kidney Disease: No - ENDOCRINE/METABOLIC Hx Endocrine Disorders: No - HEMATOLOGICAL/ONCOLOGICAL Hx Anemia: Yes Hx Human Immunodeficiency Virus (HIV): No - INTEGUMENTARY Hx Dermatological Problems: No - MUSCULOSKELETAL/RHEUMATOLOGICAL Hx Fractures: No - GASTROINTESTINAL Hx Gall Bladder Disease: Yes (Cholelithiasis) Hx Gastritis: Yes Hx Pancreatitis: Yes - GENITOURINARY/GYNECOLOGICAL Hx Sexually Transmitted Disorders: No - PSYCHIATRIC Hx Anxiety: Yes - SURGICAL HISTORY Other/Comment: left pinky - ANESTHESIA Hx Anesthesia: Yes Hx Anesthesia Reactions: No Hx Malignant Hyperthermia: No Meds Allergies/Adverse Reactions: Allergies Allergy/AdvReac Type Severity Reaction Status Date / Time aspirin AdvReac GI Bleed Verified 09/22/18 12:52 naproxen AdvReac GI bleed Verified 09/22/18 12:52 NSAIDS (Non-Steroidal AdvReac GI bleed Verified 09/22/18 12:52 Anti-Inflamma - Medications Medications: Current Medications Acetaminophen (Tylenol 650mg/20.3ml Solution Ud) 650 mg PO Q6 PRN PRN Reason: Temperature Calcium Acetate (Phoslo) 1,334 mg GT TID JANNIE Last Admin: 09/26/18 13:10 Dose: 1,334 mg Fosphenytoin Sodium (Cerebyx) 200 mg IV Q8 JANNIE Last Admin: 09/26/18 10:35 Dose: 200 mg Pantoprazole Sodium 40 mg/ (Sodium Chloride) 100 mls @ 20 mls/hr IVPB Q5H JANNIE Last Admin: 09/26/18 13:09 Dose: 20 mls/hr Octreotide Acetate 1,250 mcg/ (Sodium Chloride) 252.5 mls @ 10.1 mls/hr IV .Q24H JANNIE; Protocol Last Admin: 09/26/18 13:11 Dose: 10.1 mls/hr Vancomycin HCl 750 mg/ Sodium (Chloride) 250 mls @ 166.667 mls/hr IVPB Q12 JANNIE; Protocol Last Admin: 09/26/18 13:15 Dose: 166.667 mls/hr Meropenem 1 gm/ Sodium (Chloride) 100 mls @ 100 mls/hr IVPB Q8 JANNIE; Protocol Last Admin: 09/26/18 08:48 Dose: 100 mls/hr Levetiracetam 1,000 mg/ Sodium (Chloride) 110 mls @ 210 mls/hr IVPB Q12 JANNIE Last Admin: 09/26/18 08:48 Dose: 210 mls/hr Thiamine HCl 200 mg/ Sodium (Chloride) 102 mls @ 102 mls/hr IV Q8 JANNIE Last Admin: 09/26/18 08:55 Dose: 102 mls/hr Sodium Chloride (Sodium Chloride 0.9%) 250 mls @ 999 mls/hr IV .Q16M JANNIE Stop: 09/27/18 00:27 Last Admin: 09/26/18 00:05 Dose: 999 mls/hr Phenylephrine HCl 60 mg/ (Sodium Chloride) 256 mls @ 46.08 mls/hr IV .Q5H34M [facility]; Protocol Stop: 09/27/18 00:29 Last Admin: 09/26/18 08:51 Dose: 180 mcg/min, 46.08 mls/hr Sodium Bicarbonate 100 meq/ (Dextrose) 1,100 mls @ 100 mls/hr IV .Q11H [facility] Stop: 09/27/18 02:32 Last Admin: 09/26/18 13:15 Dose: 100 mls/hr Lactulose (Enulose) 20 gm NG Q4 [facility] Last Admin: 09/26/18 08:46 Dose: 20 gm Rifaximin (Xifaxan) 550 mg NG BID [facility]; Protocol Last Admin: 09/26/18 08:55 Dose: 550 mg Physical Exam - Constitutional Appears: Chronically Ill - Head Exam Head Exam: ATRAUMATIC, NORMAL INSPECTION, NORMOCEPHALIC - Eye Exam Pupil Exam: Fixed - ENT Exam ENT Exam: Mucous Membranes Moist - Respiratory Exam Respiratory Exam: Decreased Breath Sounds Additional comments: intubated on vent - GI/Abdominal Exam GI & Abdominal Exam: Hypoactive Bowel Sounds - Rectal Exam Additional comments: Has flexiseal, dark brown watery stool in bag - Exam Additional comments: Has barrientos catheter with minimal output - Neurological Exam Additional comments: not alert or awake, unresponsive - Skin Skin Exam: Dry, Pallor, Warm Results - Vital Signs Recent Vital Signs: Last Vital Signs Temp 98.1 F 09/26/18 13:00 Pulse 96 H 09/26/18 13:00 Resp 20 09/26/18 13:00 BP 78/28 L 09/26/18 13:00 Pulse Ox 20 L 09/26/18 13:00 - Labs Result Diagrams: 09/26/18 05:00 09/26/18 05:00 Labs: Laboratory Results - last 24 hr 09/23/18 09/25/18 09/26/18 14:00 17:12 04:00 WBC RBC Hgb Hct MCV MCH MCHC RDW Plt Count pCO2 pO2 HCO3 ABG pH ABG Total CO2 ABG O2 Saturation ABG Base Excess Jose Test ABG Potassium A-a O2 Difference Sodium Chloride Glucose Lactate Vent Mode Mechanical Rate FiO2 Tidal Volume PEEP Crit Value Called To Crit Value Called By Crit Value Read Back Blood Gas Notified Time Potassium Carbon Dioxide Anion Gap BUN Creatinine Est GFR ( Amer) Est GFR (Non-Af Amer) Random Glucose Calcium Phosphorus Magnesium Total Bilirubin AST ALT Alkaline Phosphatase Ammonia 72 H D Total Protein Albumin Globulin Albumin/Globulin Ratio Arterial Blood Potassium HSV I IgG Ab 35.30 H HSV II IgG <0.90 Blood Type O POSITIVE Antibody Screen Negative Crossmatch See Detail BBK History Checked Patient has bt 09/26/18 09/26/18 09/26/18 04:31 05:00 05:00 WBC 25.0 H D RBC 2.82 L Hgb 8.0 L Hct 25.2 L MCV 89.4 D MCH 28.3 MCHC 31.7 L RDW 17.2 H Plt Count 55 L pCO2 48 H pO2 50 L HCO3 19.0 L ABG pH 7.24 L ABG Total CO2 22.1 ABG O2 Saturation 83.7 L ABG Base Excess -6.9 L Jose Test Yes ABG Potassium 5.3 H A-a O2 Difference 603.0 Sodium 143.0 146 Chloride 110.0 H 110 H Glucose 104 Lactate 7.0 H* Vent Mode A/c Mechanical Rate 20 FiO2 100.0 Tidal Volume 500 PEEP 5 Crit Value Called To Skylar hernandez rn Crit Value Called By 302 Crit Value Read Back Y Blood Gas Notified Time 458 Potassium 5.0 Carbon Dioxide 21 L Anion Gap 20 BUN 95 H Creatinine 5.4 H Est GFR ( Amer) 14 Est GFR (Non-Af Amer) 11 Random Glucose 101 Calcium 4.9 L* Phosphorus 8.9 H Magnesium 1.8 Total Bilirubin 5.5 H AST 2335 H ALT 646 H Alkaline Phosphatase 142 H D Ammonia Total Protein 4.4 L Albumin 1.9 L Globulin 2.5 Albumin/Globulin Ratio 0.7 L Arterial Blood Potassium 5.3 H HSV I IgG Ab HSV II IgG Blood Type Antibody Screen Crossmatch BBK History Checked Assessment & Plan - Assessment and Plan (Free Text) Assessment: Palliative Care There is no advanced directive in the chart. Palliative Performance Scale 10% I reviewed medical records, all diagnostic studies, examined patient in bed, and interviewed patient brother Alvarez via telephone. Goals of Care: discussed with patients brother Alvarez. He says that he will be decision maker for patient. Patient's brother Alvarez was informed of the severity of the patient's condition by myself and Medicare Compliance Auditor. He verbalized understanding that patient's condition is irreversible. He asked that all life sustaining measures be terminated at this time and asked that his be given time to come to the bedside to be with patient before treatment is stopped. Patient brother Alvarez unable to come due to his own ailments at this time. Primary RN made aware. Impression Anoxic Brain Injury Upper GI Bleed Anemia Acute Kidney Injury Suggestion Termination of life sustaining measures as per family's wishes Supportive care Palliative Care will remain on board as needed. Advance Care Planning 60 min
--- NOTE | 2018-09-26 15:11 | CP.CCUPN ---
CCU Subjective - Physician Review Events Since Last Encounter (Free Text): 09/26/18 16:55 The patient was Seen and examined by me at the bedside during ICU round, Medical records reviewed and Management issues were discussed and formulated with the house staff. Events reviewed Patient is a 53 years old male with past medical history of hypertension, pancreatitis, pneumonia seizure, chronic back problem left shoulder pain, anemia and liver cirrhosis status post TIPSS procedure Patient with multiple admission for acute GI bleed, status post EGD showing esophageal varices Who initially presented to the emergency room for evaluation of vomiting up blood He was admitted with diagnosis of acute GI bleed Patient had cardiac arrest and was transferred to the intensive care unit Today he is totally unresponsive no cough or gag or corneal reflex CAT scan consistent with severe anoxic brain damage He is currently on 2 vasopressors max dose of Levophed and Rufino-Synephrine He is also on Protonix and octreotide drips Also on bicarb drip Despite aggressive treatment he remains hemodynamically unstable, worsening of renal function but we discussed within renal the futility of renal replacement therapy at this point Extensive discussions over the phone with the brother discussed the diagnosis treatment plan and alternatives CCU Objective - Vital Signs / Intake & Output Vital Signs (Last 4 hours): Vital Signs Temp Pulse Resp BP Pulse Ox 09/26/18 13:00 98.1 F 96 H 20 78/28 L 20 L 09/26/18 12:00 98.1 F 97 H 20 78/29 L 99 Intake and Output (Last 8hrs): Intake & Output 09/26/18 09/26/18 09/26/18 06:59 14:59 22:59 Intake Total 1970 1570 Output Total 250 Balance 1720 1570 Weight 186 lb 224 lb 2 oz Intake: IV 500 1020 Intake, Piggyback 956 550 Blood Product 279 Apheresis Rbc Cp2d As3 Lr 279 2nd Unit [id number] Free Water Flush 220 Other 15 Apheresis Rbc Cp2d As3 Lr 15 2nd Unit [id number] Output: Urine 50 Urethral (Ty) 50 Stool 200 - Physical Exam Head: Positive for: Atraumatic, Normocephalic Conjunctiva: Positive for: Normal Mouth: Positive for: Moist Mucous Membranes Nose (External): Positive for: Atraumatic Neck: Positive for: Normal Range of Motion Respiratory/Chest: Positive for: Rhonchi Abdomen: Positive for: Normal Bowel Sounds Upper Extremity: Positive for: Edema Lower Extremity: Positive for: Edema Neurological: Positive for: Other (on ventilator, no response to verbal stimuli) Skin: Positive for: Warm - Medications Active Medications: Active Medications Generic Name Dose Route Start Last Admin Trade Name Freq PRN Reason Stop Dose Admin Acetaminophen 650 mg 09/23/18 19:46 Tylenol 650mg/20.3ml Solution Ud PO Q6 PRN Temperature Calcium Acetate 1,334 mg 09/25/18 13:00 09/26/18 13:10 Phoslo GT 1,334 mg TID JANNIE Administration Fosphenytoin Sodium 200 mg 09/23/18 17:15 09/26/18 10:35 Cerebyx IV 200 mg Q8 JANNIE Administration Pantoprazole Sodium 40 mg/ 100 mls @ 20 mls/hr 09/22/18 17:00 09/26/18 13:09 Sodium Chloride IVPB 20 mls/hr Q5H JANNIE Administration 8 MG/HR Octreotide Acetate 1,250 mcg/ 252.5 mls @ 10.1 mls/hr 09/23/18 11:00 09/26/18 13:11 Sodium Chloride IV 10.1 mls/hr .Q24H JANNIE Administration Protocol 50 MCG/HR Vancomycin HCl 750 mg/ Sodium 250 mls @ 166.667 mls/hr 09/23/18 21:00 09/26/18 13:15 Chloride IVPB 166.667 mls/hr Q12 JANNIE Administration Protocol Levetiracetam 1,000 mg/ Sodium 110 mls @ 210 mls/hr 09/23/18 21:00 09/26/18 08:48 Chloride IVPB 210 mls/hr Q12 JANNIE Administration Thiamine HCl 200 mg/ Sodium 102 mls @ 102 mls/hr 09/24/18 10:30 09/26/18 08:55 Chloride IV 102 mls/hr Q8 JANNIE Administration Sodium Chloride 250 mls @ 999 mls/hr 09/25/18 23:00 09/26/18 00:05 Sodium Chloride 0.9% IV 09/27/18 00:27 999 mls/hr .Q16M JANNIE Administration Phenylephrine HCl 60 mg/ 256 mls @ 46.08 mls/hr 09/26/18 00:30 09/26/18 08:51 Sodium Chloride IV 09/27/18 00:29 180 mcg/min .Q5H34M JANNIE 46.08 mls/hr Administration Protocol 180 MCG/MIN Sodium Bicarbonate 100 meq/ 1,100 mls @ 100 mls/hr 09/26/18 02:45 09/26/18 13:15 Dextrose IV 09/27/18 02:32 100 mls/hr .Q11H JANNIE Administration Lactulose 20 gm 09/23/18 11:20 09/26/18 08:46 Enulose NG 20 gm Q4 JANNIE Administration Rifaximin 550 mg 09/23/18 17:00 09/26/18 08:55 Xifaxan NG 550 mg BID JANNIE Administration Protocol - Patient Studies Lab Studies: Microbiology Studies 09/23/18 10:30 Blood Culture - Preliminary Blood-Venous NO GROWTH AFTER 3 DAYS 09/23/18 10:41 Blood Culture - Preliminary Blood-Venous NO GROWTH AFTER 3 DAYS 09/23/18 19:00 Urine Culture - Final Urine,Catheterized No Growth (<1,000 CFU/ML) 09/23/18 13:28 Gram Stain - Final Sputum Sputum Culture - Final Escherichia Coli Staphylococcus Aureus Lab Studies 09/26/18 09/26/18 09/26/18 Range/Units 05:00 05:00 04:31 WBC 25.0 H D (4.8-10.8) K/uL RBC 2.82 L (4.40-5.90) Mil/uL Hgb 8.0 L (12.0-18.0) g/dL Hct 25.2 L (35.0-51.0) % MCV 89.4 D (80.0-94.0) fl MCH 28.3 (27.0-31.0) pg MCHC 31.7 L (33.0-37.0) g/dL RDW 17.2 H (11.5-14.5) % Plt Count 55 L (130-400) K/uL pCO2 48 H (35-45) mm/Hg pO2 50 L (80-100) mm/Hg HCO3 19.0 L (21-28) mmol/L ABG pH 7.24 L (7.35-7.45) ABG Total CO2 22.1 (22-28) mmol/L ABG O2 Saturation 83.7 L (95-98) % ABG Base Excess -6.9 L (-2.0-3.0) mmol/L Jose Test Yes ABG Potassium 5.3 H (3.6-5.2) mmol/L A-a O2 Difference 603.0 mm/Hg Sodium 146 143.0 (132-148) mmol/L Chloride 110 H 110.0 H (98-107) mmol/L Glucose 104 (75-110) mg/dL Lactate 7.0 H* (0.7-2.1) mmol/L Vent Mode A/c Mechanical Rate 20 FiO2 100.0 % Tidal Volume 500 PEEP 5 Crit Value Called To Skylar hernandez rn Crit Value Called By 302 Crit Value Read Back Y Blood Gas Notified Time 458 Potassium 5.0 (3.6-5.0) MMOL/L Carbon Dioxide 21 L (22-30) mmol/L Anion Gap 20 (10-20) BUN 95 H (9-20) mg/dl Creatinine 5.4 H (0.8-1.5) mg/dl Est GFR ( Amer) 14 Est GFR (Non-Af Amer) 11 Random Glucose 101 (75-110) mg/dL Calcium 4.9 L* (8.4-10.2) mg/dL Phosphorus 8.9 H (2.5-4.5) mg/dl Magnesium 1.8 (1.6-2.3) MG/DL Total Bilirubin 5.5 H (0.2-1.3) mg/dl AST 2335 H (17-59) U/L ALT 646 H (21-72) U/L Alkaline Phosphatase 142 H D (38-126) U/L Ammonia (9-33) umol/L Total Protein 4.4 L (6.3-8.2) G/DL Albumin 1.9 L (3.5-5.0) g/dL Globulin 2.5 (2.2-3.9) gm/dL Albumin/Globulin Ratio 0.7 L (1.0-2.1) Arterial Blood Potassium 5.3 H (3.6-5.2) mmol/L HSV I IgG Ab index HSV II IgG index Blood Type Antibody Screen Crossmatch BBK History Checked 09/26/18 09/25/18 09/23/18 Range/Units 04:00 17:12 14:00 WBC (4.8-10.8) K/uL RBC (4.40-5.90) Mil/uL Hgb (12.0-18.0) g/dL Hct (35.0-51.0) % MCV (80.0-94.0) fl MCH (27.0-31.0) pg MCHC (33.0-37.0) g/dL RDW (11.5-14.5) % Plt Count (130-400) K/uL pCO2 (35-45) mm/Hg pO2 (80-100) mm/Hg HCO3 (21-28) mmol/L ABG pH (7.35-7.45) ABG Total CO2 (22-28) mmol/L ABG O2 Saturation (95-98) % ABG Base Excess (-2.0-3.0) mmol/L Jose Test ABG Potassium (3.6-5.2) mmol/L A-a O2 Difference mm/Hg Sodium (132-148) mmol/L Chloride (98-107) mmol/L Glucose (75-110) mg/dL Lactate (0.7-2.1) mmol/L Vent Mode Mechanical Rate FiO2 % Tidal Volume PEEP Crit Value Called To Crit Value Called By Crit Value Read Back Blood Gas Notified Time Potassium (3.6-5.0) MMOL/L Carbon Dioxide (22-30) mmol/L Anion Gap (10-20) BUN (9-20) mg/dl Creatinine (0.8-1.5) mg/dl Est GFR ( Amer) Est GFR (Non-Af Amer) Random Glucose (75-110) mg/dL Calcium (8.4-10.2) mg/dL Phosphorus (2.5-4.5) mg/dl Magnesium (1.6-2.3) MG/DL Total Bilirubin (0.2-1.3) mg/dl AST (17-59) U/L ALT (21-72) U/L Alkaline Phosphatase (38-126) U/L Ammonia 72 H D (9-33) umol/L Total Protein (6.3-8.2) G/DL Albumin (3.5-5.0) g/dL Globulin (2.2-3.9) gm/dL Albumin/Globulin Ratio (1.0-2.1) Arterial Blood Potassium (3.6-5.2) mmol/L HSV I IgG Ab 35.30 H index HSV II IgG <0.90 index Blood Type O POSITIVE Antibody Screen Negative Crossmatch See Detail BBK History Checked Patient has bt Laboratory Results - last 24 hr 09/23/18 09/25/18 09/26/18 14:00 17:12 04:00 WBC RBC Hgb Hct MCV MCH MCHC RDW Plt Count pCO2 pO2 HCO3 ABG pH ABG Total CO2 ABG O2 Saturation ABG Base Excess Jose Test ABG Potassium A-a O2 Difference Sodium Chloride Glucose Lactate Vent Mode Mechanical Rate FiO2 Tidal Volume PEEP Crit Value Called To Crit Value Called By Crit Value Read Back Blood Gas Notified Time Potassium Carbon Dioxide Anion Gap BUN Creatinine Est GFR ( Amer) Est GFR (Non-Af Amer) Random Glucose Calcium Phosphorus Magnesium Total Bilirubin AST ALT Alkaline Phosphatase Ammonia 72 H D Total Protein Albumin Globulin Albumin/Globulin Ratio Arterial Blood Potassium HSV I IgG Ab 35.30 H HSV II IgG <0.90 Blood Type O POSITIVE Antibody Screen Negative Crossmatch See Detail BBK History Checked Patient has bt 09/26/18 09/26/18 09/26/18 04:31 05:00 05:00 WBC 25.0 H D RBC 2.82 L Hgb 8.0 L Hct 25.2 L MCV 89.4 D MCH 28.3 MCHC 31.7 L RDW 17.2 H Plt Count 55 L pCO2 48 H pO2 50 L HCO3 19.0 L ABG pH 7.24 L ABG Total CO2 22.1 ABG O2 Saturation 83.7 L ABG Base Excess -6.9 L Jose Test Yes ABG Potassium 5.3 H A-a O2 Difference 603.0 Sodium 143.0 146 Chloride 110.0 H 110 H Glucose 104 Lactate 7.0 H* Vent Mode A/c Mechanical Rate 20 FiO2 100.0 Tidal Volume 500 PEEP 5 Crit Value Called To Skylar hernandez rn Crit Value Called By 302 Crit Value Read Back Y Blood Gas Notified Time 458 Potassium 5.0 Carbon Dioxide 21 L Anion Gap 20 BUN 95 H Creatinine 5.4 H Est GFR ( Amer) 14 Est GFR (Non-Af Amer) 11 Random Glucose 101 Calcium 4.9 L* Phosphorus 8.9 H Magnesium 1.8 Total Bilirubin 5.5 H AST 2335 H ALT 646 H Alkaline Phosphatase 142 H D Ammonia Total Protein 4.4 L Albumin 1.9 L Globulin 2.5 Albumin/Globulin Ratio 0.7 L Arterial Blood Potassium 5.3 H HSV I IgG Ab HSV II IgG Blood Type Antibody Screen Crossmatch BBK History Checked Radiology Impressions: Radiology Impressions Chest X-Ray 09/26/18 05:00 IMPRESSION: Worsening congestive heart failure. Endotracheal tube is low in position and terminates 7 mm proximal to the maranda. Repositioning is advised. Stable position of nasogastric tube. Fingerstick Blood Sugar Results: 325 Review of Systems - Review of Systems Systems not reviewed;Unavailable: Intubated Critical Care Progress Note - Ventilator Checklist Head of Bed 30 Degrees: Yes Daily Sedation Vacation: Yes Daily Assessment of Readiness to Wean: Yes Daily Spontaneous Breathing Trial: Yes PUD Prophalyxis: Yes DVT Prophylaxis: Yes Oral Care with Chlorhexidine Gluconate {CHG}: Yes - Extremities/Vascular Does the Patient have a Central Venous Catheter?: Yes Does the Patient need a Central Venous Catheter?: Yes Does the Patient have a Ty Catheter?: No Does the Patient need a Ty Catheter?: No - Nutrition Nutrition: Nutrition Category Date Time Status NPO Diet [DIET] Diets 09/23/18 Breakfast Active Assessment/Plan (1) Cardiac arrest Current Visit: Yes Status: Acute Priority: High (2) Anoxic brain injury Current Visit: Yes Status: Acute Priority: High (3) Aspiration pneumonia Current Visit: Yes Status: Acute Priority: High (4) Acute respiratory failure Current Visit: Yes Status: Resolved Priority: High (5) Acute upper GI hemorrhage Current Visit: Yes Status: Resolved Priority: High
--- NOTE | 2018-09-26 15:11 | CP.PCM.PRO ---
Pronouncement of Note - Clinical Findings Physical Exam: No Response Verbal/Painful Stimuli, Absent Peripheral Puls es{Carotid & Femoral}, Absent Heart & Breath Sounds, No Pupillary Light Reflex, No Corneal Reflex, Pupils Fixed & Dilated, Absence of Vital Signs - Pronouncement Time Time of Pronouncement of : 15:10 - Notifications Pronouncement Notifications: Family Notified, Atending Notified Director Of Category Management Notified: Yes - Autopsy Autopsy Requested: No - [place] [id number]
[2018-09-26 15:41] VITALS: BP 77/33; PULSE 99; O2SAT 97
--- NOTE | 2018-09-27 06:22 | DS ---
REASON FOR ADMISSION This is a 53-year-old male with history of alcoholic liver disease, status post multiple admissions for GI bleeding and esophageal varices, was admitted for again upper GI bleeding with hemoglobin of 5. HOSPITALIZATION COURSE: The patient was admitted to the telemetry floor and after having type and cross, the patient was started on blood transfusion. During the transfusion, the patient was found to be pulseless and apneic. Code blue was called and the patient was coded and transferred to intensive care unit. There was no apparent seizure or any reaction to the blood for the cardiac arrest. The patient was also having history of seizures and he was continued on his Keppra 500 mg twice a day and it was increased to 1000 mg twice a day by Neurology. The patient had a Neurology consultation. Infectious Disease and Nephrology consultation in addition to the mix house tender consultation. BUN and creatinine was worsening and the patient developed acute renal failure. The patient had a renal consultation done by Dr. Wilson also. The patient was coded again today and he did not resume any pulse. The patient was noticed to have absent corneal reflexes and pupillary reflexes since for the last two days. FINAL DIAGNOSES: Upper GI bleeding, severe anemia, seizure disorder, cardiac arrest. Dm Nicholson MD
== END 2018-09-26 15:10 | DRG 552 ==
LOC: H.ER 12:48 → H.ERHOLD 15:13 → H.TEL 19:21 → H.ICU/CCU 09-23 03:50
PROVIDERS: ADMIT Internal Medicine; ATTEND Internal Medicine
PROC: 0BH17EZ Insertion of Endotracheal Airway into Trachea, Via Natural or Artificial Opening (ICD-10-PCS; principal; 2018-09-23)
PROC: 5A1945Z Respiratory Ventilation, 24-96 Consecutive Hours (ICD-10-PCS; 2018-09-23)
PROC: 30233K1 Transfusion of Nonautologous Frozen Plasma into Peripheral Vein, Percutaneous Approach (ICD-10-PCS; 2018-09-23)
PROC: 30233N1 Transfusion of Nonautologous Red Blood Cells into Peripheral Vein, Percutaneous Approach (ICD-10-PCS; 2018-09-23)
PROC: 06HM33Z Insertion of Infusion Device into Right Femoral Vein, Percutaneous Approach (ICD-10-PCS; 2018-09-23)
PROC: 30233K1 Transfusion of Nonautologous Frozen Plasma into Peripheral Vein, Percutaneous Approach (ICD-10-PCS; 2018-09-23)
PROC: 6A550Z2 Pheresis of Platelets, Single (ICD-10-PCS; 2018-09-23)
DX: K92.0 Hematemesis (principal); J96.00 Acute respiratory failure, unspecified whether with hypoxia or hypercapnia; J69.0 Pneumonitis due to inhalation of food and vomit; G93.1 Anoxic brain damage, not elsewhere classified; K72.90 Hepatic failure, unspecified without coma; N17.9 Acute kidney failure, unspecified; I46.9 Cardiac arrest, cause unspecified; K70.30 Alcoholic cirrhosis of liver without ascites; E87.5 Hyperkalemia; E87.2 Acidosis; D68.4 Acquired coagulation factor deficiency; R57.9 Shock, unspecified; K76.7 Hepatorenal syndrome; G40.909 Epilepsy, unspecified, not intractable, without status epilepticus; F10.10 Alcohol abuse, uncomplicated; D50.0 Iron deficiency anemia secondary to blood loss (chronic); Y84.8 Other medical procedures as the cause of abnormal reaction of the patient, or of later complication, without mention of misadventure at the time of the procedure; B85.0 Pediculosis due to Pediculus humanus capitis; F41.9 Anxiety disorder, unspecified; K29.70 Gastritis, unspecified, without bleeding; F17.210 Nicotine dependence, cigarettes, uncomplicated; G89.29 Other chronic pain; Z88.6 Allergy status to analgesic agent; E83.51 Hypocalcemia; E83.39 Other disorders of phosphorus metabolism; E72.20 Disorder of urea cycle metabolism, unspecified; Z91.14 Patient's other noncompliance with medication regimen; Z51.5 Encounter for palliative care; T80.89XA Other complications following infusion, transfusion and therapeutic injection, initial encounter; D63.8 Anemia in other chronic diseases classified elsewhere; Y90.0 Blood alcohol level of less than 20 mg/100 ml